=== PATIENT | male | born 1945 | race American Indian/Alaskan Native ===

== ENCOUNTER 2019-01-09 20:30 | Inpatient (IN) | payer MEDICARE, OTHER ==
[2019-01-09] MEDS ORDERED: ULTRAM PO ONE (21:15)
[2019-01-09] MEDS ORDERED: ULTRAM ONE (21:29)
[2019-01-09] MEDS ORDERED: K-DUR PO ONE ×2 (22:50→23:32)
[2019-01-09] MEDS ORDERED: ROCEPHIN/NS 1 GM/50 ML 1 GM/50 ML BAG IV ONE ×2 (22:50→23:31)
--- NOTE | 2019-01-10 02:06 | Emergency Department Report ---
ED General Adult HPI - General Time Seen by Provider: 01/10/19 01:58 Source: patient, EMS - History of Present Illness Initial comments: Marcy Buckleyell...8:50 pm (DOWNTIME) Room 22 72-year-old male presents to the ED with generalized weakness. Patient states he has chronic back pain that radiates into both legs with chronic weakness to both legs. Also reports chronic Left groin pain since the 1980s. Earlier today around 2 PM, patient states he attempted to get out of his chair to walk downstairs, but his legs gave out from underneath him. The patient states he attempted to get up but could not. Patient reports he normally walks with cane due to weakness in his legs. Patient states he crawled around on thr floor for hours, but was unable to get up from the floor due to his groin pain and baseline weakness. The patient eventually called EMS this evening to ask for help to get up from the floor. The patient denies any increased weakness in his legs, denies any numbness in the legs. Only reports left hip and groin pain. [facility] This afternoon Location: left, right, lower extremity Quality: aching Consistency: constant Improves with: immobilization Worsens with: movement Associated Symptoms: weakness (generalized). denies: chest pain, cough, fever/chills, headaches, nausea/vomiting, shortness of breath Treatments Prior to Arrival: none - Related Data Allergies Allergy/AdvReac Type Severity Reaction Status Date / Time No Known Allergies Allergy Verified 01/10/19 02:20 ED Review of Systems ROS: Stated complaint: Other details as noted in HPI Comment: All other systems reviewed and negative Constitutional: denies: chills, fever Respiratory: denies: shortness of breath Cardiovascular: denies: chest pain Gastrointestinal: denies: abdominal pain, nausea, vomiting, diarrhea Musculoskeletal: back pain, arthralgia Neurological: denies: headache, numbness, paresthesias ED Physical Exam - General General appearance: alert, in no apparent distress - Head Head exam: Present: atraumatic, normocephalic - Eye Eye exam: Present: normal appearance - ENT ENT exam: Present: mucous membranes moist - Neck Neck exam: Present: normal inspection - Respiratory Respiratory exam: Present: normal lung sounds bilaterally. Absent: respiratory distress - Cardiovascular Cardiovascular Exam: Present: regular rate, normal rhythm - GI/Abdominal GI/Abdominal exam: Present: soft. Absent: distended, tenderness - Extremities Exam Extremities exam: Present: pedal edema - Neurological Exam Neurological exam: Present: alert, oriented X3, CN II-XII intact, motor sensory deficit (4/5 strength LLE, 3/5 strength RLE (this is baseline per patient); BUE strength 5/5) - Psychiatric Psychiatric exam: Present: normal affect, normal mood - Skin Skin exam: Present: warm, dry, intact, normal color ED Medical Decision Making - Radiology Data Radiology results: report reviewed, image reviewed - Medical Decision Making 73-year-old male with chronic lower extremity weakness and chronic left hip pain. Patient states it gave out on him earlier today and he was unable to get himself up for several hours. Even after EMS arrived and lifted him up from sitting position, patient states he was unable to walk. CK does not demonstrate rhabdomyolysis. Serum labs unremarkable except for mild hypokalemia which was replaced. UA shows evidence of UTI. Will admit to hospitalist for weakness, hypokalemia, UTI. DOWNTIME procedures during ED stay-- no access to previous records as computer system is unavailable - Differential Diagnosis UTI, rhabdomyolysis, renal failure, fracture Critical care attestation.: If time is entered above; I have spent that time in minutes in the direct care of this critically ill patient, excluding procedure time. ED Disposition Clinical Impression: Hypokalemia, UTI (urinary tract infection), Generalized weakness Disposition: OP ADMIT IP TO THIS HOSP Is pt being admited?: Yes Condition: Stable
--- NOTE | 2019-01-10 02:32 | XRay Report ---
PROCEDURE: XR HIP 2-3V LT TECHNIQUE: Left hip radiographs, 3 views. 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 Soft tissues: Normal Bone mineralization: Normal Foreign bodies: None IMPRESSION: There are no fractures or malalignments. There is degenerative arthrosis of the left hip joint. This document is electronically signed by Ramin Leal MD., January 10 2019 02:30:54 AM ET
[2019-01-10] MEDS ORDERED: TYLENOL PO PRN (02:42)
[2019-01-10] MEDS ORDERED: ZOFRAN IV PRN (02:42)
[2019-01-10] MEDS ORDERED: SODIUM CHLORIDE FLUSH SYRINGE 10 ML IV PRN (02:42)
[2019-01-10] MEDS ORDERED: NACL 0.9% 1000 ML 1,000 ML ONE (05:33)
[2019-01-10] MEDS ORDERED: NORCO 5/325 ONE (05:33)
[2019-01-10] MEDS: PERCOCET 5/325 PO PRN ×2 (05:39→13:47)
[2019-01-10] MEDS: NACL 0.9% 1000 ML 1,000 ML IV SCH (05:39)
--- NOTE | 2019-01-10 07:04 | Event Note ---
Date: 01/10/19 See history and physical in the reports Sudden onset of weakness in both lower extremities Paraparesis??? Rule out transverse myelitis Neurology consult Physical therapy evaluation
--- NOTE | 2019-01-10 09:56 | History and Physical Report ---
CHIEF COMPLAINT: Weakness in both the lower extremities. HISTORY OF PRESENT ILLNESS: A 72-year-old male with history of seizure disorder and some weakness in both lower extremities, usually walking with a walker, comes in for increasing weakness in both the lower extremities and states that he is not able to walk. The patient states that around 2 p.m. attempted to get out of his chair to walk downstairs, but his legs gave out from underneath him. The patient normally walks with a cane due to weakness in his legs. The patient states he called around on the floor for hours, but was unable to get up from the floor due to his groin pain and weakness. The patient called the EMS and came here for being evaluated for weakness in both lower extremities. No weakness in both upper extremities. No numbness. PAST MEDICAL HISTORY: Significant for seizure disorder. PAST SURGICAL HISTORY: None. FAMILY HISTORY: Hypertension. SOCIAL HISTORY: Does not smoke. No alcohol, no recreational drugs. REVIEW OF SYSTEMS: Significant for weakness in both lower extremities. No fever, no chills. No shortness of breath. No memory loss. A 14-point review of systems done. Otherwise, negative. PHYSICAL EXAMINATION: GENERAL: Elderly male, cooperative during examination. VITAL SIGNS: Blood pressure 119/55, pulse is 88, respirations are 12, sats are 97%. HEENT: Unremarkable. Pupils equal and reactive. NECK: Supple, no lymphadenopathy, no thyromegaly. LUNGS: Clear to auscultation and percussion. Good air entry. CARDIOVASCULAR: S1, S2 heard. No gallop, no murmur, no rub. Apical impulse in left fifth intercostal space and mid clavicular line. ABDOMEN: Soft and benign. No hepatosplenomegaly. No guarding, no rigidity. EXTREMITIES: The patient has 2+/5 power in both lower extremities. Unable to lift the legs to some extent, maybe 30 degrees. Otherwise, severe weakness in both lower extremities. ASSESSMENT AND PLAN: 1. Paraparesis and4--- Rule out cord compression in the lumbosacral region. We will get MRI of the lumbosacral spine. Neurology consult requested. Physical therapy ordered. 2. Seizure disorder. Continue carbamazepine and primidone. 3. Hypokalemia, supplemented. 5. Deep venous thrombosis prophylaxis, Lovenox 40 mg subQ daily. In summary, the patient has weakness in both lower extremities, which is being evaluated. We will check MRI of the LS spine and check Neurology consult. JOB# [id number] INES/EBENEZER CYR
[2019-01-10] MEDS ORDERED: LOVENOX SUB-Q SCH (10:00)
[2019-01-10 10:22] LABS: Basophils # (Auto) 0.1 K/mm3 (0.0-0.1); Basophils % (Auto) 0.8 % (0.0-1.8); Eosinophils # (Auto) 0.2 K/mm3 (0.0-0.4); Eosinophils % (Auto) 2.4 % (0.0-4.3); Hematocrit 31.9 % (35.5-45.6); Hemoglobin 10.9 gm/dl (11.8-15.2); Lymphocytes # (Auto) 0.9 K/mm3 (1.2-5.4); Lymphocytes % (Auto) 13.9 % (13.4-35.0); Mean Corpuscular HGB Conc 34 % (32-34); Mean Corpuscular Volume 93 fl (84-94); Monocytes # (Auto) 0.8 K/mm3 (0.0-0.8); Monocytes % (Auto) 11.5 % (0.0-7.3); Platelet Count 235 K/mm3 (140-440); Red Blood Count 3.43 M/mm3 (3.65-5.03); Red Cell Distribution Width 12.7 % (13.2-15.2)
[2019-01-10 10:54] LABS: Bilirubin,Urine NEG (Negative); Blood,Urine MOD (Negative); Color,Urine Yellow (Yellow); Mucus,Urine FEW /HPF
[2019-01-10 10:54] LABS: Alanine Aminotransferase 11 units/L (7-56); Albumin 3.2 g/dL (3.9-5); BUN/Creatinine Ratio 10; Blood Urea Nitrogen 9 mg/dL (9-20); Calcium 8.4 mg/dL (8.4-10.2); Hemolysis Index 5
[2019-01-10] MEDS: DILAUDID IV PRN (12:03)
[2019-01-10] MEDS: PEPCID PO SCH ×2 (13:46→21:48)
[2019-01-10] MEDS: SODIUM CHLORIDE FLUSH SYRINGE 10 ML IV SCH ×2 (13:47→21:48)
[2019-01-10] MEDS: MYSOLINE PO SCH ×3 (13:48→20:50)
--- NOTE | 2019-01-10 15:39 | Event Note ---
Date: 01/10/19 Patient seen and examined, resting comfortable, no respiratory distress at this time. continue current work up
[2019-01-10 15:52] LABS: BUN/Creatinine Ratio 10; Blood Urea Nitrogen 9 mg/dL (9-20); Calcium 8.7 mg/dL (8.4-10.2); Hemolysis Index 8
--- NOTE | 2019-01-10 16:31 | Magnetic Resonance Report ---
MRI LUMBAR SPINE WITHOUT AND WITH CONTRAST: 01/10/19 CLINICAL: Paraparesis. TECHNIQUE: Sagittal and axial T1 and T2, sagittal STIR and sagittal and axial postcontrast T1 fat sat sequences a 1.5 Radha magnet. 20.0 cc of Multihance was injected intravenously for the contrast portion of the exam and consent was obtained prior to the administration of the contrast. FINDINGS: Motion degrades the quality of the examination. Normal vertebral body alignment through S1. A chronic L1 mid wedge compression fracture demonstrates no edema on STIR. The rest bodies are normal in height. Complete loss of the L5-S1 disc space and very large anterior osteophytes at L5-S1. The rest of the disc spaces are intact. The overall marrow signal is normal. However, Modic endplate changes at multiple levels and most pronounced at L5-S1. The conus medullaris is normal and terminates at L1 to. No mass. L1-2: Mild circumferential bulge of the disc, large anterior bulge of the disc and large anterior osteophytes. Mild bilateral neural foraminal narrowing. L2-3: Mild circumferential olds of the disc, large anterior bulge of the disc and large anterior osteophytes. Bilateral facet hypertrophy and ligamentum flavum hypertrophy. Moderate bilateral neural foraminal narrowing, slightly greater on the right than the left. L3-4: Large circumferential disc bulge and a small focal central disc protrusion with peripheral enhancement at the margins of the disc protrusion. Bilateral facet hypertrophy and ligamentum flavum hypertrophy. Pronounced right neural foraminal stenosis and pronounced left neural foraminal stenosis. L4-5: Circumferential disc bulge, bilateral facet hypertrophy and pronounced ligamentum flavum hypertrophy producing mild central spinal canal stenosis and pronounced bilateral neural foraminal stenosis. L5-S1: Degeneration of the disc with loss of the disc space. Bilateral facet hypertrophy and moderate bilateral neural foraminal stenosis. IMPRESSION: 1. Multilevel degenerative disc disease and facet joint disease, most severe at L3-4 and L4-5. 2. Pronounced bilateral neural foraminal narrowing at L3-4 and L4-5 produce by accommodation of disc bulges and facet hypertrophy. 3. Mild spinal canal stenosis at L4-5. 4. An acute L3-4 focal central disc protrusion. 5. No spinal canal with the lesion and no lesion of the conus medullaris.
[2019-01-11] MEDS: NACL 0.9% 1000 ML 1,000 ML IV SCH (02:30)
[2019-01-11] MEDS: DILAUDID IV PRN (02:35)
[2019-01-11 08:47] LABS: Basophils % (Auto) 0.4 % (0.0-1.8); Eosinophils # (Auto) 0.3 K/mm3 (0.0-0.4); Eosinophils % (Auto) 4.6 % (0.0-4.3); Hematocrit 33.6 % (35.5-45.6); Hemoglobin 11.4 gm/dl (11.8-15.2); Lymphocytes % (Auto) 18.9 % (13.4-35.0); Mean Corpuscular HGB Conc 34 % (32-34); Mean Corpuscular Volume 93 fl (84-94); Monocytes # (Auto) 0.6 K/mm3 (0.0-0.8); Monocytes % (Auto) 11.3 % (0.0-7.3); Platelet Count 227 K/mm3 (140-440); Red Blood Count 3.63 M/mm3 (3.65-5.03); Red Cell Distribution Width 12.9 % (13.2-15.2)
[2019-01-11 09:14] LABS: Alanine Aminotransferase 15 units/L (7-56); Albumin 3.1 g/dL (3.9-5); BUN/Creatinine Ratio 10; Blood Urea Nitrogen 9 mg/dL (9-20); Calcium 8.3 mg/dL (8.4-10.2); Hemolysis Index 1
--- NOTE | 2019-01-11 09:16 | Progress Note ---
Subjective Date of service: 01/11/19 Interval history: went over the MRI and hip Xray the Xray is normal and the MRI shows multi level disc budge borderline spinal stenosis will further assess Objective - Vital Sign Vital Signs - 12hr 01/10/19 01/10/19 01/11/19 22:00 22:57 06:17 Temperature 98.2 F 98.6 F Pulse Rate 74 84 Respiratory 18 18 16 Rate Blood Pressure 121/62 Blood Pressure 93/46 [Left] O2 Sat by Pulse 74 L 96 98 Oximetry 01/11/19 08:39 Temperature Pulse Rate Respiratory Rate Blood Pressure Blood Pressure [Left] O2 Sat by Pulse 84 Oximetry - Laboratory Findings CBC and BMP: 01/11/19 07:35 01/11/19 07:35 Abnormal Lab Findings: Abnormal Labs 01/09/19 01/10/19 01/10/19 21:50 10:07 10:07 RBC Hgb Hct RDW [place] % (Auto) Eos % (Auto) Lymph # Seg Neutrophils % Potassium 3.0 L 3.1 L Glucose 109 H Calcium Total Creatine Kinase 342 H 918 H Albumin 3.2 L Urine WBC (Auto) 01/10/19 01/10/19 01/11/19 10:07 10:08 07:35 RBC 3.43 L 3.63 L Hgb 10.9 L 11.4 L Hct 31.9 L 33.6 L RDW 12.7 L 12.9 L [place] % (Auto) 11.5 H 11.3 H Eos % (Auto) 4.6 H Lymph # 0.9 L 1.0 L Seg Neutrophils % 71.4 H Potassium Glucose Calcium Total Creatine Kinase Albumin Urine WBC (Auto) 91.0 H 01/11/19 07:35 RBC Hgb Hct RDW [place] % (Auto) Eos % (Auto) Lymph # Seg Neutrophils % Potassium 3.1 L Glucose Calcium 8.3 L Total Creatine Kinase Albumin 3.1 L Urine WBC (Auto)
[2019-01-11] MEDS: LOVENOX SUB-Q SCH (10:17)
[2019-01-11] MEDS: PEPCID PO SCH ×2 (10:17→21:59)
[2019-01-11] MEDS: MYSOLINE PO SCH ×3 (10:18→21:59)
[2019-01-11] MEDS: SODIUM CHLORIDE FLUSH SYRINGE 10 ML IV SCH ×2 (10:20→22:14)
--- NOTE | 2019-01-11 16:28 | Progress Note ---
Subjective Date of service: 01/11/19 Interval history: suspect the neuropathy in lergs is related to lumbar radiculitis plan discharge as no need for surgery plan follow up in offoce I CAN SEE OUTPATIENT HE IS NOT SURGICAL CANDIDATE EXPLAINED THE DISORDER TO PATIENT Objective - Vital Sign Vital Signs - 12hr 01/11/19 01/11/19 01/11/19 05:37 06:17 08:39 Temperature 98.6 F Pulse Rate 76 84 Respiratory 16 Rate Blood Pressure 93/38 Blood Pressure 93/46 [Left] O2 Sat by Pulse 87 98 84 Oximetry 01/11/19 11:30 Temperature 98.0 F Pulse Rate 103 H Respiratory 20 Rate Blood Pressure 100/61 Blood Pressure [Left] O2 Sat by Pulse 98 Oximetry - Laboratory Findings CBC and BMP: 01/11/19 07:35 01/11/19 07:35 Abnormal Lab Findings: Abnormal Labs 01/09/19 01/10/19 01/10/19 21:50 10:07 10:07 RBC Hgb Hct RDW [place] % (Auto) Eos % (Auto) Lymph # Seg Neutrophils % Potassium 3.0 L 3.1 L Glucose 109 H Calcium Total Creatine Kinase 342 H 918 H Albumin 3.2 L Urine WBC (Auto) 01/10/19 01/10/19 01/11/19 10:07 10:08 07:35 RBC 3.43 L 3.63 L Hgb 10.9 L 11.4 L Hct 31.9 L 33.6 L RDW 12.7 L 12.9 L [place] % (Auto) 11.5 H 11.3 H Eos % (Auto) 4.6 H Lymph # 0.9 L 1.0 L Seg Neutrophils % 71.4 H Potassium Glucose Calcium Total Creatine Kinase Albumin Urine WBC (Auto) 91.0 H 01/11/19 07:35 RBC Hgb Hct RDW [place] % (Auto) Eos % (Auto) Lymph # Seg Neutrophils % Potassium 3.1 L Glucose Calcium 8.3 L Total Creatine Kinase Albumin 3.1 L Urine WBC (Auto)
[2019-01-11] MEDS: PERCOCET 5/325 PO PRN (22:15)
--- NOTE | 2019-01-11 23:11 | Progress Note ---
Assessment and Plan Assessment and plan: Patient is a 72-year-old male presents to the ED with generalized weakness. Patient states he has chronic back pain that radiates into both legs with chronic weakness to both legs. Also reports chronic Left groin pain since the . Earlier today around 2 PM, patient states he attempted to get out of his chair to walk downstairs, but his legs gave out from underneath him. The patient states he attempted to get up but could not. Patient reports he normally walks with cane due to weakness in his legs. Patient states he crawled around on thr floor for hours, but was unable to get up from the floor due to his groin pain and baseline weakness. The patient eventually called EMS this evening to ask for help to get up from the floor. The patient denies any increased weakness in his legs, denies any numbness in the legs. Acute Cystitis Lumbar Radiculitis with-multi level disc budge borderline spinal stenosis Hypokalemia Plan Supportive care PT/OT Replace electrolytes Continue abx and await culture DVT/GI prophy History Interval history: Patient seen and examined, sitting at the edge of the bed, no new complaints, reports parasthesia in the left thigh and leg Hospitalist Physical - Constitutional Vitals: Temp Pulse Resp BP Pulse Ox 98.0 F 74 24 107/62 91 01/11/19 19:35 01/11/19 19:35 01/11/19 19:35 01/11/19 19:35 01/11/19 19:35 General appearance: Present: no acute distress, well-nourished - EENT Eyes: Present: PERRL, EOM intact ENT: hearing intact - Neck Neck: Present: supple, normal ROM - Respiratory Respiratory effort: normal Respiratory: bilateral: CTA - Cardiovascular Rhythm: regular Heart Sounds: Present: S1 & S2. Absent: systolic murmur - Extremities Extremities: no ischemia, pulses intact, pulses symmetrical, No edema, normal temperature, normal color, Full ROM Peripheral Pulses: within normal limits - Abdominal General gastrointestinal: soft, non-tender, non-distended, normal bowel sounds - Integumentary Integumentary: Present: clear, warm, dry - Psychiatric Psychiatric: appropriate mood/affect - Neurologic Neurologic: CNII-XII intact, moves all extremities - Allied Health Allied health notes reviewed: nursing Results - Labs CBC & Chem 7: 01/11/19 07:35 01/11/19 07:35 Labs: Laboratory Last Values WBC 5.4 K/mm3 (4.5-11.0) 01/11/19 07:35 RBC 3.63 M/mm3 (3.65-5.03) L 01/11/19 07:35 Hgb 11.4 gm/dl (11.8-15.2) L 01/11/19 07:35 Hct 33.6 % (35.5-45.6) L 01/11/19 07:35 MCV 93 fl (84-94) 01/11/19 07:35 MCH 32 pg (28-32) 01/11/19 07:35 MCHC 34 % (32-34) 01/11/19 07:35 RDW 12.9 % (13.2-15.2) L 01/11/19 07:35 Plt Count 227 K/mm3 (140-440) 01/11/19 07:35 Lymph % (Auto) 18.9 % (13.4-35.0) 01/11/19 07:35 [place] % (Auto) 11.3 % (0.0-7.3) H 01/11/19 07:35 Eos % (Auto) 4.6 % (0.0-4.3) H 01/11/19 07:35 Baso % (Auto) 0.4 % (0.0-1.8) 01/11/19 07:35 Lymph # 1.0 K/mm3 (1.2-5.4) L 01/11/19 07:35 Iron # 0.6 K/mm3 (0.0-0.8) 01/11/19 07:35 Eos # 0.3 K/mm3 (0.0-0.4) 01/11/19 07:35 Baso # 0.0 K/mm3 (0.0-0.1) 01/11/19 07:35 Seg Neutrophils % 64.8 % (40.0-70.0) 01/11/19 07:35 Seg Neutrophils # 3.5 K/mm3 (1.8-7.7) 01/11/19 07:35 Sodium 144 mmol/L (137-145) 01/11/19 07:35 Potassium 3.1 mmol/L (3.6-5.0) L 01/11/19 07:35 Chloride 105.1 mmol/L (98-107) 01/11/19 07:35 Carbon Dioxide 25 mmol/L (22-30) 01/11/19 07:35 17 mmol/L 01/11/19 07:35 BUN 9 mg/dL (9-20) 01/11/19 07:35 0.9 mg/dL (0.8-1.5) 01/11/19 07:35 Estimated GFR > 60 ml/min 01/11/19 07:35 10 % 01/11/19 07:35 Glucose 99 mg/dL (75-100) 01/11/19 07:35 5.3 % (4-6) 01/10/19 10:07 Calcium 8.3 mg/dL (8.4-10.2) L 01/11/19 07:35 0.30 mg/dL (0.1-1.2) 01/11/19 07:35 AST 30 units/L (5-40) 01/11/19 07:35 ALT 15 units/L (7-56) 01/11/19 07:35 62 units/L (35-129) 01/11/19 07:35 918 units/L (55-170) H 01/10/19 10:07 6.7 g/dL (6.3-8.2) 01/11/19 07:35 3.1 g/dL (3.9-5) L 01/11/19 07:35 0.9 % 01/11/19 07:35 Yellow (Yellow) 01/10/19 10:08 Slightly-cloudy (Clear) 01/10/19 10:08 5.0 (5.0-7.0) 01/10/19 10:08 Ur Specific [place] 1.023 (1.003-1.030) 01/10/19 10:08 30 mg/dl mg/dL (Negative) 01/10/19 10:08 Neg mg/dL (Negative) 01/10/19 10:08 20 mg/dL (Negative) 01/10/19 10:08 Mod (Negative) 01/10/19 10:08 Neg (Negative) 01/10/19 10:08 Neg (Negative) 01/10/19 10:08 2.0 mg/dL (<2.0) 01/10/19 10:08 Ur Leukocyte Esterase Mod (Negative) 01/10/19 10:08 91.0 /HPF (0.0-6.0) H 01/10/19 10:08 103.0 /HPF (0.0-6.0) 01/10/19 10:08 U Epithel Cells (Auto) 1.0 /HPF (0-13.0) 01/10/19 10:08 Few /HPF 01/10/19 10:08 Active Medications - Current Medications Current Medications: Generic Name Dose Route Start Last Admin Trade Name Freq PRN Reason Stop Dose Admin Acetaminophen 650 mg 01/10/19 02:42 Tylenol PO Q4H PRN Pain MILD(1-3)/Fever >100.5/TIERNEY Carbamazepine 200 mg 01/10/19 08:00 01/11/19 22:00 Tegretol PO 200 mg TID MARSHALL Administration Enoxaparin Sodium 40 mg 01/11/19 10:00 01/11/19 10:17 Lovenox SUB-Q 40 mg QDAY@1000 MARSHALL Administration Famotidine 20 mg 01/10/19 10:00 01/11/19 21:59 Pepcid PO 20 mg BID MARSHALL Administration Hydromorphone HCl 0.5 mg 01/10/19 02:42 01/11/19 02:35 Dilaudid IV 0.5 mg Q3H PRN Administration Pain , Severe (7-10) Sodium Chloride 1,000 mls @ 75 mls/hr 01/10/19 03:00 01/11/19 02:30 Nacl 0.9% 1000 Ml IV 75 mls/hr DIRECT MARSHALL Administration Ondansetron HCl 4 mg 01/10/19 02:42 Zofran IV Q8H PRN Nausea And Vomiting Oxycodone/Acetaminophen 1 tab 01/10/19 02:42 01/11/19 22:15 Percocet 5/325 PO 1 tab Q6H PRN Administration Pain, Moderate (4-6) Primidone 250 mg 01/10/19 08:00 01/11/19 21:59 Mysoline PO 250 mg TID MARSHALL Administration Sodium Chloride 10 ml 01/10/19 10:00 01/11/19 22:14 Sodium Chloride Flush Syringe 10 Ml IV 10 ml BID MARSHALL Administration Sodium Chloride 10 ml 01/10/19 02:42 01/11/19 02:37 Sodium Chloride Flush Syringe 10 Ml IV 10 ml PRN PRN Administration LINE FLUSH
[2019-01-12] MEDS: NACL 0.9% 1000 ML 1,000 ML IV SCH (04:00)
--- NOTE | 2019-01-12 08:15 | Discharge Summary ---
Providers - Providers Date of Admission: 01/10/19 02:07 Attending physician: CHARLIE HERBERT MD 01/10/19 02:46 Physical Therapy Evaluation and Treat [CONS] Routine Comment: Reason For Exam: paraparesis Mode of Transport?: Wheelchair 01/10/19 17:02 Consult to Physician [CONS] Routine Comment: Consulting Provider: TIKI DIAZ Physician Instructions: Reason For Exam: bilateral lower ext weakness Primary care physician: BUSINESS PROCESS ENGINEER Hospitalization Reason for admission: fall Condition: Stable Hospital course: Patient is a 72-year-old male presents to the ED with generalized weakness. Patient states he has chronic back pain that radiates into both legs with chronic weakness to both legs. Also reports chronic Left groin pain since the 1980s. Earlier today around 2 PM, patient states he attempted to get out of his chair to walk downstairs, but his legs gave out from underneath him. The patient states he attempted to get up but could not. Patient reports he normally walks with cane due to weakness in his legs. Patient states he crawled around on thr floor for hours, but was unable to get up from the floor due to his groin pain and baseline weakness. The patient eventually called EMS this evening to ask for help to get up from the floor. The patient denies any increased weakness in his legs, denies any numbness in the legs. During hospitalization patient had a was found in the FLOOR In the bath room, CT head was done did not reveal any acute pathology Neurology saw the patient and recommended physical therapy with outpatient follow up with the neurologist SNF was recommended by PT Discharge Diagnosis Acute Cystitis Lumbar Radiculitis with-multi level disc budge borderline spinal stenosis No evidence of Sepsis. Hypokalemia Recurrent falls seizure [id number] Time spent for discharge: 35 mins Core Measure Documentation - Palliative Care Palliative Care/ Comfort Measures: Not Applicable - Core Measures Any of the following diagnoses?: none Exam - Physical Exam Narrative exam: General appearance: Present: no acute distress, well-nourished - EENT Eyes: Present: PERRL, EOM intact. No head Trauma ENT: hearing intact - Neck Neck: Present: supple, normal ROM - Respiratory Respiratory effort: normal Respiratory: bilateral: CTA - Cardiovascular Rhythm: regular Heart Sounds: Present: S1 & S2. Absent: systolic murmur - Extremities Extremities: no ischemia, pulses intact, pulses symmetrical, No edema, normal temperature, normal color, Full ROM Peripheral Pulses: within normal limits - Abdominal General gastrointestinal: soft, non-tender, non-distended, normal bowel sounds - Integumentary Integumentary: Present: clear, warm, dry - Psychiatric Psychiatric: appropriate mood/affect - Neurologic Neurologic: CNII-XII intact, moves all extremities - Allied Health Allied health notes reviewed: nursing - Constitutional Vitals: Temp Pulse Resp BP Pulse Ox 98.4 F 89 16 105/62 94 01/12/19 05:01/12/19 05:01/12/19 05:11 01/12/19 05:01/12/19 05:11 General appearance: Present: no acute distress, well-nourished - EENT Eyes: Present: PERRL, EOM intact ENT: hearing intact - Neck Neck: Present: supple, normal ROM - Respiratory Respiratory effort: normal Respiratory: bilateral: CTA - Cardiovascular Rhythm: regular Heart Sounds: Present: S1 & S2. Absent: systolic murmur - Extremities Extremities: no ischemia, pulses intact, No edema, normal temperature, Full ROM Peripheral Pulses: within normal limits - Abdominal General gastrointestinal: Present: soft, non-tender, non-distended, normal bowel sounds - Integumentary Integumentary: Present: clear, warm, dry - Musculoskeletal Musculoskeletal: strength equal bilaterally - Psychiatric Psychiatric: appropriate mood/affect, intact judgment & insight - Neurologic Neurologic: CNII-XII intact, moves all extremities - Allied Health Allied health notes reviewed: nursing Plan Activity: advance as tolerated Diet: low fat Special Instructions: record daily weights, physical therapy, occupational therapy Follow up with: PRIMARY CARE, [Primary Care Provider] - 3-5 Days Prescriptions: oxyCODONE /ACETAMINOPHEN [Percocet 5/325 mg] 1 tab PO Q6H PRN #14 tablet PRN Reason: Pain, Moderate (4-6)
[2019-01-12] MEDS: MYSOLINE PO SCH ×3 (08:25→20:41)
[2019-01-12] MEDS: PERCOCET 5/325 PO PRN ×2 (08:25→15:00)
[2019-01-12] MEDS ORDERED: K-DUR PO ONE (09:30)
[2019-01-12] MEDS: LOVENOX SUB-Q SCH (10:35)
[2019-01-12] MEDS: SODIUM CHLORIDE FLUSH SYRINGE 10 ML IV SCH ×2 (10:36→21:06)
[2019-01-12] MEDS: PEPCID PO SCH ×2 (10:36→21:05)
--- NOTE | 2019-01-12 12:11 | Progress Note ---
Assessment and Plan Assessment and plan: Patient is a 72-year-old male presents to the ED with generalized weakness. Patient states he has chronic back pain that radiates into both legs with chronic weakness to both legs. Also reports chronic Left groin pain since the 1980s. Earlier today around 2 PM, patient states he attempted to get out of his chair to walk downstairs, but his legs gave out from underneath him. The patient states he attempted to get up but could not. Patient reports he normally walks with cane due to weakness in his legs. Patient states he crawled around on thr floor for hours, but was unable to get up from the floor due to his groin pain and baseline weakness. The patient eventually called EMS this evening to ask for help to get up from the floor. The patient denies any increased weakness in his legs, denies any numbness in the legs. Acute Cystitis Lumbar Radiculitis with-multi level disc budge borderline spinal stenosis Hypokalemia No sepsis Plan Supportive care PT/OT Replace electrolytes Continue abx and await culture DVT/GI prophy Discharge to SNF History Interval history: Patient seen and examined, sitting at the edge of the bed, no new complaints, reports parasthesia in the left thigh and leg Hospitalist Physical - Physical exam Narrative exam: General appearance: Present: no acute distress, well-nourished - EENT Eyes: Present: PERRL, EOM intact. No head Trauma ENT: hearing intact - Neck Neck: Present: supple, normal ROM - Respiratory Respiratory effort: normal Respiratory: bilateral: CTA - Cardiovascular Rhythm: regular Heart Sounds: Present: S1 & S2. Absent: systolic murmur - Extremities Extremities: no ischemia, pulses intact, pulses symmetrical, No edema, normal temperature, normal color, Full ROM Peripheral Pulses: within normal limits - Abdominal General gastrointestinal: soft, non-tender, non-distended, normal bowel sounds - Integumentary Integumentary: Present: clear, warm, dry - Psychiatric Psychiatric: appropriate mood/affect - Neurologic Neurologic: CNII-XII intact, moves all extremities - Allied Health Allied health notes reviewed: nursing - Constitutional Vitals: Temp Pulse Resp BP Pulse Ox 98.4 F 89 16 105/62 94 01/12/19 05:11 01/12/19 05:11 01/12/19 05:11 01/12/19 05:11 01/12/19 05:11 General appearance: Present: no acute distress, well-nourished Results - Labs CBC & Chem 7: 01/11/19 07:35 01/11/19 07:35 Labs: Laboratory Last Values WBC 5.4 K/mm3 (4.5-11.0) 01/11/19 07:35 RBC 3.63 M/mm3 (3.65-5.03) L 01/11/19 07:35 Hgb 11.4 gm/dl (11.8-15.2) L 01/11/19 07:35 Hct 33.6 % (35.5-45.6) L 01/11/19 07:35 MCV 93 fl (84-94) 01/11/19 07:35 MCH 32 pg (28-32) 01/11/19 07:35 MCHC 34 % (32-34) 01/11/19 07:35 RDW 12.9 % (13.2-15.2) L 01/11/19 07:35 Plt Count 227 K/mm3 (140-440) 01/11/19 07:35 Lymph % (Auto) 18.9 % (13.4-35.0) 01/11/19 07:35 [place] % (Auto) 11.3 % (0.0-7.3) H 01/11/19 07:35 Eos % (Auto) 4.6 % (0.0-4.3) H 01/11/19 07:35 Baso % (Auto) 0.4 % (0.0-1.8) 01/11/19 07:35 Lymph # 1.0 K/mm3 (1.2-5.4) L 01/11/19 07:35 [place] # 0.6 K/mm3 (0.0-0.8) 01/11/19 07:35 Eos # 0.3 K/mm3 (0.0-0.4) 01/11/19 07:35 Baso # 0.0 K/mm3 (0.0-0.1) 01/11/19 07:35 Seg Neutrophils % 64.8 % (40.0-70.0) 01/11/19 07:35 Seg Neutrophils # 3.5 K/mm3 (1.8-7.7) 01/11/19 07:35 Sodium 144 mmol/L (137-145) 01/11/19 07:35 Potassium 3.1 mmol/L (3.6-5.0) L 01/11/19 07:35 Chloride 105.1 mmol/L (98-107) 01/11/19 07:35 Carbon Dioxide 25 mmol/L (22-30) 01/11/19 07:35 17 mmol/L 01/11/19 07:35 BUN 9 mg/dL (9-20) 01/11/19 07:35 0.9 mg/dL (0.8-1.5) 01/11/19 07:35 Estimated GFR > 60 ml/min 01/11/19 07:35 10 % 01/11/19 07:35 Glucose 99 mg/dL (75-100) 01/11/19 07:35 5.3 % (4-6) 01/10/19 10:07 Calcium 8.3 mg/dL (8.4-10.2) L 01/11/19 07:35 0.30 mg/dL (0.1-1.2) 01/11/19 07:35 AST 30 units/L (5-40) 01/11/19 07:35 ALT 15 units/L (7-56) 01/11/19 07:35 62 units/L (35-129) 01/11/19 07:35 918 units/L (55-170) H 01/10/19 10:07 6.7 g/dL (6.3-8.2) 01/11/19 07:35 3.1 g/dL (3.9-5) L 01/11/19 07:35 0.9 % 01/11/19 07:35 Yellow (Yellow) 01/10/19 10:08 Slightly-cloudy (Clear) 01/10/19 10:08 5.0 (5.0-7.0) 01/10/19 10:08 Ur Specific [place] 1.023 (1.003-1.030) 01/10/19 10:08 30 mg/dl mg/dL (Negative) 01/10/19 10:08 Neg mg/dL (Negative) 01/10/19 10:08 20 mg/dL (Negative) 01/10/19 10:08 Mod (Negative) 01/10/19 10:08 Neg (Negative) 01/10/19 10:08 Neg (Negative) 01/10/19 10:08 2.0 mg/dL (<2.0) 01/10/19 10:08 Ur Leukocyte Esterase Mod (Negative) 01/10/19 10:08 91.0 /HPF (0.0-6.0) H 01/10/19 10:08 103.0 /HPF (0.0-6.0) 01/10/19 10:08 U Epithel Cells (Auto) 1.0 /HPF (0-13.0) 01/10/19 10:08 Few /HPF 01/10/19 10:08 Active Medications - Current Medications Current Medications: Generic Name Dose Route Start Last Admin Trade Name Freq PRN Reason Stop Dose Admin Acetaminophen 650 mg 01/10/19 02:42 Tylenol PO Q4H PRN Pain MILD(1-3)/Fever >100.5/TIERNEY Carbamazepine 200 mg 01/10/19 08:00 01/12/19 08:24 Tegretol PO 200 mg TID MARSHALL Administration Enoxaparin Sodium 40 mg 01/11/19 10:00 01/12/19 10:35 Lovenox SUB-Q 40 mg QDAY@1000 MARSHALL Administration Famotidine 20 mg 01/10/19 10:00 01/12/19 10:36 Pepcid PO 20 mg BID MARSHALL Administration Hydromorphone HCl 0.5 mg 01/10/19 02:42 01/11/19 02:35 Dilaudid IV 0.5 mg Q3H PRN Administration Pain , Severe (7-10) Sodium Chloride 1,000 mls @ 75 mls/hr 01/10/19 03:00 01/12/19 04:00 Nacl 0.9% 1000 Ml IV 75 mls/hr DIRECT MARSHALL Administration Ondansetron HCl 4 mg 01/10/19 02:42 Zofran IV Q8H PRN Nausea And Vomiting Oxycodone/Acetaminophen 1 tab 01/10/19 02:42 01/12/19 08:25 Percocet 5/325 PO 1 tab Q6H PRN Administration Pain, Moderate (4-6) Primidone 250 mg 01/10/19 08:00 01/12/19 08:25 Mysoline PO 250 mg TID MARSHALL Administration Sodium Chloride 10 ml 01/10/19 10:00 06/14/19 10:36 Sodium Chloride Flush Syringe 10 Ml IV 10 ml BID MARSHALL Administration Sodium Chloride 10 ml 01/10/19 02:42 01/11/19 02:37 Sodium Chloride Flush Syringe 10 Ml IV 10 ml PRN PRN Administration LINE FLUSH
--- NOTE | 2019-01-12 14:31 | Cat Scan Report ---
CT HEAD WITHOUT CONTRAST INDICATION: Altered mental status. COMPARISON: None similar. 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 Normal remainder ventricles. Mild periventricular hypodensities. No definite acute infarct, hemorrhage, mass effect or midline shift. No abnormal extra axial fluid collections. Normal posterior fossa with preserved basilar cisterns. Normal imaged eye globes. Leftward nasal septal deviation and 3 mm leftward nasal septal spur noted. Clear imaged paranasal sinuses and mastoid air cells. Normal calvarium and scalp. CONCLUSION: No acute intracranial CT abnormality with old left frontal lobe infarct and few other findings noted, as described. Please correlate. Thank you for the opportunity to participate in this patient's care.
[2019-01-13] MEDS: PERCOCET 5/325 PO PRN (01:53)
[2019-01-13] MEDS: PEPCID PO SCH (09:30)
[2019-01-13] MEDS: LOVENOX SUB-Q SCH (09:30)
[2019-01-13] MEDS: MYSOLINE PO SCH ×2 (09:30→14:28)
[2019-01-13] MEDS: SODIUM CHLORIDE FLUSH SYRINGE 10 ML IV SCH (09:31)
[2019-01-13 12:10] VITALS: BP 122/66
--- NOTE | 2019-01-13 14:28 | Progress Note ---
Subjective Date of service: 01/13/19 Interval history: ok to discharge recommend follow up in my office see the orders Objective - Vital Sign Vital Signs - 12hr 01/13/19 01/13/19 04:55 11:21 Temperature 98.6 F 98.1 F Pulse Rate 78 80 Respiratory 18 20 Rate Blood Pressure 110/59 122/66 O2 Sat by Pulse 94 98 Oximetry - Laboratory Findings CBC and BMP: 01/11/19 07:35 01/11/19 07:35 Abnormal Lab Findings: Abnormal Labs 01/09/19 01/10/19 01/10/19 21:50 10:07 10:07 RBC Hgb Hct RDW [place] % (Auto) Eos % (Auto) Lymph # Seg Neutrophils % Potassium 3.0 L 3.1 L Glucose 109 H Calcium Total Creatine Kinase 342 H 918 H Albumin 3.2 L Urine WBC (Auto) 01/10/19 01/10/19 01/11/19 10:07 10:08 07:35 RBC 3.43 L 3.63 L Hgb 10.9 L 11.4 L Hct 31.9 L 33.6 L RDW 12.7 L 12.9 L [place] % (Auto) 11.5 H 11.3 H Eos % (Auto) 4.6 H Lymph # 0.9 L 1.0 L Seg Neutrophils % 71.4 H Potassium Glucose Calcium Total Creatine Kinase Albumin Urine WBC (Auto) 91.0 H 01/11/19 07:35 RBC Hgb Hct RDW [place] % (Auto) Eos % (Auto) Lymph # Seg Neutrophils % Potassium 3.1 L Glucose Calcium 8.3 L Total Creatine Kinase Albumin 3.1 L Urine WBC (Auto)
== END 2019-01-13 14:35 | DRG 552 ==
LOC: ED 20:30 → 2B-ACE 01-10 02:07 → 3A 01-10 09:28
PROVIDERS: ADMIT Internal Medicine; ATTEND Internal Medicine
DX: M54.16 Radiculopathy, lumbar region (principal); N30.01 Acute cystitis with hematuria; G82.20 Paraplegia, unspecified; E87.6 Hypokalemia; G40.909 Epilepsy, unspecified, not intractable, without status epilepticus; G89.29 Other chronic pain; M54.9 Dorsalgia, unspecified; Z91.81 History of falling
CPT/HCPCS: 36415; 70450; 72158; 80048; 80053; 81001; 82550; 83036; 85025; 87086; G0378; A9577; J0696; J1170; J1650; J7030

== ENCOUNTER 2020-08-14 09:57 | Inpatient (IN) | payer MEDICARE ==
[2020-08-14] MEDS ORDERED: SODIUM CHLORIDE 0.9% 1000 ML 2,000 ML ONE (10:23)
[2020-08-14] MEDS ORDERED: SODIUM CHLORIDE 0.9% 1000 ML 1,000 ML IV ONE ×5 (10:28→13:45)
--- NOTE | 2020-08-14 10:36 | Emergency Department Report ---
ED General Adult HPI - General Chief complaint: Altered Mental Status Stated complaint: AMS/SEPSIS Time Seen by Provider: 08/14/20 10:27 Source: EMS Mode of arrival: Stretcher Limitations: Altered Mental Status, Physical Limitation - History of Present Illness Initial comments: Patient is 75-year-old male brought to the emergency room from his custodial resident for evaluation of altered mental status and low blood pressure. Patient found to be tachycardic at 164 with a blood pressure of 76/36 and oxygen saturation of 100%. Patient mentation is normal as he is asking for water. Patient was seen 2019 for bilateral lower extremities after a fall and found that he has spondylosis and multiple bulge disc and since then patient admitted to long-term facility for inability to walk and take care of himself. Patient is not answering questions appropriately. Sepsis protocol initiated as EKG did not indicate rhythm that would be the cause for his hypotension. Patient received 2 L of normal saline and sepsis work-up was started. - Related Data Home Medications Medication Instructions Recorded Confirmed Last Taken Folic Acid [Folvite] 1 mg PO QDAY 01/10/19 08/14/20 Unknown Primidone [Mysoline] 250 mg PO TID 01/10/19 08/14/20 Unknown carBAMazepine [Carbamazepine] 200 mg PO TID 01/10/19 08/14/20 Unknown Aspirin [Aspirin BABY CHEW TAB] 81 mg PO QDAY 08/15/20 08/15/20 Unknown AtorvaSTATin [Lipitor] 40 mg PO QHS 08/15/20 08/15/20 Unknown Citalopram Hydrobromide 20 mg PO QDAY 08/15/20 08/15/20 Unknown [Citalopram HBr] Ergocalciferol [Vitamin D2] 1 cap PO QWEEK 08/15/20 08/15/20 Unknown Folic Acid [Folvite] 1 mg PO QDAY 08/15/20 08/15/20 Unknown Midodrine [Proamatine] 2.5 mg PO BID 08/15/20 08/15/20 Unknown Mirtazapine 7.5 mg PO QHS 08/15/20 08/15/20 Unknown guaiFENesin ER [Mucinex ER] 600 mg PO Q12H 08/15/20 08/15/20 Unknown oxyCODONE /ACETAMINOPHEN [Percocet 1 tab PO Q6HR PRN 08/15/20 08/15/20 Unknown 5/325] tiZANidine [Zanaflex 4mg TAB] 4 mg PO BID 08/15/20 08/15/20 Unknown Previous Rx's Medication Instructions Recorded Last Taken Type oxyCODONE /ACETAMINOPHEN [Percocet 1 tab PO Q6H PRN #14 tablet 01/12/19 Unknown Rx 5/325 mg] Allergies Allergy/AdvReac Type Severity Reaction Status Date / Time No Known Allergies Allergy Verified 01/10/19 02:20 ED Review of Systems ROS: Stated complaint: AMS/SEPSIS Other details as noted in HPI Comment: Unobtainable due to pts medical conditions ED Past Medical Hx - Social History Smoking Status: Never Smoker - Medications Home Medications: Home Medications Medication Instructions Recorded Confirmed Last Taken Type Folic Acid [Folvite] 1 mg PO QDAY 01/10/19 08/14/20 Unknown History Primidone [Mysoline] 250 mg PO TID 01/10/19 08/14/20 Unknown History carBAMazepine [Carbamazepine] 200 mg PO TID 01/10/19 08/14/20 Unknown History oxyCODONE /ACETAMINOPHEN [Percocet 1 tab PO Q6H PRN #14 tablet 01/12/19 08/14/20 Unknown Rx 5/325 mg] Aspirin [Aspirin BABY CHEW TAB] 81 mg PO QDAY 08/15/20 08/15/20 Unknown History AtorvaSTATin [Lipitor] 40 mg PO QHS 08/15/20 08/15/20 Unknown History Citalopram Hydrobromide 20 mg PO QDAY 08/15/20 08/15/20 Unknown History [Citalopram HBr] Ergocalciferol [Vitamin D2] 1 cap PO QWEEK 08/15/20 08/15/20 Unknown History Folic Acid [Folvite] 1 mg PO QDAY 08/15/20 08/15/20 Unknown History Midodrine [Proamatine] 2.5 mg PO BID 08/15/20 08/15/20 Unknown History Mirtazapine 7.5 mg PO QHS 08/15/20 08/15/20 Unknown History guaiFENesin ER [Mucinex ER] 600 mg PO Q12H 08/15/20 08/15/20 Unknown History oxyCODONE /ACETAMINOPHEN [Percocet 1 tab PO Q6HR PRN 08/15/20 08/15/20 Unknown History 5/325] tiZANidine [Zanaflex 4mg TAB] 4 mg PO BID 08/15/20 08/15/20 Unknown History ED Physical Exam - General Limitations: Altered Mental Status, Physical Limitation General appearance: alert, in no apparent distress - Head Head exam: Present: atraumatic, normocephalic, normal inspection - ENT ENT exam: Present: mucous membranes dry - Neck Neck exam: Present: normal inspection, full ROM. Absent: tenderness, meningismus - Respiratory Respiratory exam: Present: normal lung sounds bilaterally - Cardiovascular Cardiovascular Exam: Present: tachycardia - GI/Abdominal GI/Abdominal exam: Present: soft, normal bowel sounds. Absent: distended, tenderness, guarding, rebound, rigid, organomegaly, mass, bruit, pulsatile mass, hernia - Back Exam Back exam: Absent: CVA tenderness (R), CVA tenderness (L) - Neurological Exam Neurological exam: Present: alert, oriented X3, CN II-XII intact - Skin Skin exam: Present: other (Bilateral leg wound.) ED Course Vital Signs 08/14/20 08/14/20 08/14/20 10:15 10:30 10:45 Temperature 98.6 F Pulse Rate 172 H 165 H Respiratory 22 18 20 Rate Blood Pressure 79/43 Blood Pressure 71/47 [Left] O2 Sat by Pulse 92 92 99 Oximetry 08/14/20 08/14/20 08/14/20 11:31 11:40 11:51 Temperature Pulse Rate 129 H 135 H 151 H Respiratory 18 20 Rate Blood Pressure Blood Pressure 77/50 84/45 69/43 [Left] O2 Sat by Pulse 96 100 Oximetry 08/14/20 08/14/20 08/14/20 13:00 14:15 15:15 Temperature Pulse Rate 93 H 91 H 85 Respiratory 18 18 18 Rate Blood Pressure Blood Pressure 100/62 88/51 96/50 [Left] O2 Sat by Pulse 99 99 99 Oximetry 08/14/20 08/14/20 08/14/20 19:00 20:00 20:38 Temperature 97.8 F Pulse Rate 86 89 85 Respiratory 12 14 13 Rate Blood Pressure Blood Pressure 96/48 100/49 [Left] O2 Sat by Pulse 97 97 79 L Oximetry 08/14/20 08/14/20 08/14/20 21:00 21:30 22:00 Temperature Pulse Rate 80 85 81 Respiratory 13 14 15 Rate Blood Pressure 100/55 99/43 Blood Pressure [Left] O2 Sat by Pulse 98 Oximetry 08/14/20 08/14/20 08/14/20 22:30 23:00 23:16 Temperature Pulse Rate 72 72 73 Respiratory 12 14 16 Rate Blood Pressure 99/43 103/46 99/43 Blood Pressure [Left] O2 Sat by Pulse 98 99 99 Oximetry 08/14/20 08/14/20 08/15/20 23:30 23:32 00:00 Temperature Pulse Rate 73 74 74 Respiratory 13 17 14 Rate Blood Pressure 103/46 103/46 104/53 Blood Pressure [Left] O2 Sat by Pulse 99 99 100 Oximetry 08/15/20 08/15/20 08/15/20 00:30 01:00 01:30 Temperature Pulse Rate 127 H 125 H 129 H Respiratory 18 18 16 Rate Blood Pressure 104/53 104/53 89/56 Blood Pressure [Left] O2 Sat by Pulse 99 98 Oximetry 08/15/20 08/15/20 08/15/20 02:00 02:30 03:00 Temperature Pulse Rate 117 H 80 69 Respiratory 25 H 18 14 Rate Blood Pressure 83/51 120/65 117/61 Blood Pressure [Left] O2 Sat by Pulse 98 100 100 Oximetry 08/15/20 08/15/20 08/15/20 03:16 03:30 03:46 Temperature Pulse Rate 81 70 77 Respiratory 16 16 17 Rate Blood Pressure 124/69 120/55 124/62 Blood Pressure [Left] O2 Sat by Pulse 100 99 97 Oximetry 08/15/20 08/15/20 08/15/20 04:00 04:16 04:30 Temperature Pulse Rate 70 68 70 Respiratory 14 13 14 Rate Blood Pressure 129/65 128/60 123/61 Blood Pressure [Left] O2 Sat by Pulse 100 98 100 Oximetry 08/15/20 08/15/20 08/15/20 04:46 05:00 05:16 Temperature Pulse Rate 69 70 75 Respiratory 14 10 L 15 Rate Blood Pressure 121/63 124/62 127/70 Blood Pressure [Left] O2 Sat by Pulse 99 96 100 Oximetry 08/15/20 08/15/20 08/15/20 05:30 05:46 06:00 Temperature Pulse Rate 66 69 72 Respiratory 15 11 L 17 Rate Blood Pressure 131/71 129/69 120/65 Blood Pressure [Left] O2 Sat by Pulse 99 96 66 L Oximetry 08/15/20 08/15/20 08/15/20 06:15 06:30 06:46 Temperature Pulse Rate 70 71 66 Respiratory 15 17 15 Rate Blood Pressure 128/66 129/67 128/70 Blood Pressure [Left] O2 Sat by Pulse 100 100 99 Oximetry 08/15/20 08/15/20 08/15/20 07:00 07:16 07:30 Temperature Pulse Rate 68 67 72 Respiratory 18 15 14 Rate Blood Pressure 121/67 125/56 124/70 Blood Pressure [Left] O2 Sat by Pulse 100 98 96 Oximetry 08/15/20 08/15/20 08/15/20 07:45 08:00 08:15 Temperature Pulse Rate 66 67 66 Respiratory 14 16 19 Rate Blood Pressure 122/67 132/67 128/66 Blood Pressure [Left] O2 Sat by Pulse 100 99 100 Oximetry 08/15/20 08/15/20 08/15/20 08:30 08:46 09:00 Temperature Pulse Rate 79 69 79 Respiratory 15 16 17 Rate Blood Pressure 114/61 116/64 127/67 Blood Pressure [Left] O2 Sat by Pulse 98 95 99 Oximetry 08/15/20 08/15/20 08/15/20 09:16 09:30 09:46 Temperature Pulse Rate 68 70 85 Respiratory 14 20 17 Rate Blood Pressure 127/57 121/65 127/71 Blood Pressure [Left] O2 Sat by Pulse 99 98 99 Oximetry 08/15/20 08/15/20 08/15/20 10:00 10:16 10:30 Temperature Pulse Rate 73 69 75 Respiratory 13 16 13 Rate Blood Pressure 108/58 114/56 114/61 Blood Pressure [Left] O2 Sat by Pulse 97 97 96 Oximetry 08/15/20 08/15/20 08/15/20 10:46 11:00 11:16 Temperature Pulse Rate 74 72 73 Respiratory 15 19 15 Rate Blood Pressure 104/57 104/58 104/56 Blood Pressure [Left] O2 Sat by Pulse 99 99 98 Oximetry 08/15/20 08/15/20 08/15/20 11:30 11:46 12:00 Temperature Pulse Rate 70 84 73 Respiratory 11 L 11 L 14 Rate Blood Pressure 105/59 109/54 101/58 Blood Pressure [Left] O2 Sat by Pulse 98 98 96 Oximetry 08/15/20 08/15/20 08/15/20 12:16 12:30 12:46 Temperature Pulse Rate 73 69 70 Respiratory 14 15 15 Rate Blood Pressure 101/52 102/56 104/58 Blood Pressure [Left] O2 Sat by Pulse 99 98 96 Oximetry 08/15/20 08/15/20 08/15/20 13:00 13:16 13:30 Temperature Pulse Rate 67 76 69 Respiratory 14 16 12 Rate Blood Pressure 101/53 103/55 106/46 Blood Pressure [Left] O2 Sat by Pulse 99 100 99 Oximetry 08/15/20 08/15/20 08/15/20 13:45 14:00 14:16 Temperature Pulse Rate 72 67 66 Respiratory 9 L 12 17 Rate Blood Pressure 115/55 97/57 109/56 Blood Pressure [Left] O2 Sat by Pulse 100 96 100 Oximetry 08/15/20 08/15/20 08/15/20 14:30 14:46 15:00 Temperature Pulse Rate 80 75 71 Respiratory 13 15 12 Rate Blood Pressure 95/59 108/53 112/55 Blood Pressure [Left] O2 Sat by Pulse 98 100 99 Oximetry 08/15/20 08/15/20 08/15/20 15:16 15:30 15:46 Temperature Pulse Rate 71 76 72 Respiratory 13 16 14 Rate Blood Pressure 112/55 112/55 112/55 Blood Pressure [Left] O2 Sat by Pulse 96 98 99 Oximetry 08/15/20 08/15/20 08/15/20 16:00 16:15 16:30 Temperature Pulse Rate 73 76 76 Respiratory 13 12 15 Rate Blood Pressure 112/55 99/52 96/57 Blood Pressure [Left] O2 Sat by Pulse 99 98 98 Oximetry 08/15/20 08/15/20 08/15/20 16:46 17:00 17:16 Temperature Pulse Rate 72 66 76 Respiratory 14 11 L 10 L Rate Blood Pressure 100/51 85/43 79/40 Blood Pressure [Left] O2 Sat by Pulse 99 100 98 Oximetry 08/15/20 08/15/20 08/15/20 17:30 17:45 18:00 Temperature Pulse Rate 67 71 68 Respiratory 12 11 L 10 L Rate Blood Pressure 95/47 96/40 100/44 Blood Pressure [Left] O2 Sat by Pulse 99 99 98 Oximetry 08/15/20 08/15/20 08/15/20 19:00 19:16 19:30 Temperature Pulse Rate 68 49 L 48 L Respiratory 17 20 13 Rate Blood Pressure 133/63 111/39 112/44 Blood Pressure [Left] O2 Sat by Pulse 97 100 100 Oximetry 08/15/20 08/15/20 08/15/20 19:45 20:00 20:15 Temperature Pulse Rate 59 L 53 L 71 Respiratory 11 L 13 16 Rate Blood Pressure 99/39 88/36 130/66 Blood Pressure [Left] O2 Sat by Pulse 100 100 100 Oximetry 08/15/20 08/15/20 08/15/20 20:30 20:45 21:00 Temperature Pulse Rate 57 L 58 L 50 L Respiratory 11 L 15 13 Rate Blood Pressure 125/60 88/37 100/43 Blood Pressure [Left] O2 Sat by Pulse 100 100 100 Oximetry 08/15/20 08/15/20 08/15/20 21:15 21:30 21:45 Temperature Pulse Rate 68 53 L 54 L Respiratory 12 8 L 18 Rate Blood Pressure 92/51 108/46 96/39 Blood Pressure [Left] O2 Sat by Pulse 99 100 100 Oximetry 08/15/20 08/15/20 08/15/20 22:00 22:16 22:30 Temperature Pulse Rate 67 64 51 L Respiratory 9 L 14 14 Rate Blood Pressure 90/36 91/30 120/60 Blood Pressure [Left] O2 Sat by Pulse 100 99 100 Oximetry 08/15/20 08/15/20 08/15/20 22:46 23:00 23:16 Temperature Pulse Rate 55 L 62 62 Respiratory 12 11 L 14 Rate Blood Pressure 103/56 101/47 102/44 Blood Pressure [Left] O2 Sat by Pulse 100 100 100 Oximetry 08/15/20 08/15/20 08/16/20 23:30 23:46 00:00 Temperature Pulse Rate 49 L 48 L 49 L Respiratory 12 16 20 Rate Blood Pressure 93/54 94/35 75/28 Blood Pressure [Left] O2 Sat by Pulse 100 100 Oximetry 08/16/20 08/16/20 08/16/20 00:14 00:16 00:30 Temperature Pulse Rate 47 L 48 L 62 Respiratory 13 15 15 Rate Blood Pressure 121/61 92/34 92/34 Blood Pressure [Left] O2 Sat by Pulse 100 100 100 Oximetry 08/16/20 08/16/20 08/16/20 00:46 01:00 01:16 Temperature Pulse Rate 53 L 76 54 L Respiratory 18 12 12 Rate Blood Pressure 142/63 100/53 142/60 Blood Pressure [Left] O2 Sat by Pulse 100 100 100 Oximetry 08/16/20 08/16/20 08/16/20 01:30 01:46 02:00 Temperature Pulse Rate 53 L 62 92 H Respiratory 10 L 14 26 H Rate Blood Pressure 141/66 139/61 153/89 Blood Pressure [Left] O2 Sat by Pulse 95 Oximetry 08/16/20 08/16/20 08/16/20 02:16 02:30 02:46 Temperature Pulse Rate 53 L 53 L 53 L Respiratory 13 16 15 Rate Blood Pressure 134/67 141/62 134/59 Blood Pressure [Left] O2 Sat by Pulse 100 100 98 Oximetry 08/16/20 08/16/20 08/16/20 03:00 03:15 03:30 Temperature Pulse Rate 54 L 53 L 63 Respiratory 12 17 13 Rate Blood Pressure 139/62 148/64 153/73 Blood Pressure [Left] O2 Sat by Pulse 100 99 100 Oximetry 08/16/20 08/16/20 08/16/20 03:46 04:00 04:16 Temperature Pulse Rate 57 L 58 L 50 L Respiratory 13 13 12 Rate Blood Pressure 135/53 135/53 133/61 Blood Pressure [Left] O2 Sat by Pulse 100 100 Oximetry 08/16/20 08/16/20 08/16/20 04:30 04:46 05:00 Temperature Pulse Rate 53 L 57 L 58 L Respiratory 13 11 L 14 Rate Blood Pressure 141/58 139/61 131/63 Blood Pressure [Left] O2 Sat by Pulse 100 100 98 Oximetry 08/16/20 08/16/20 08/16/20 05:15 05:30 05:46 Temperature Pulse Rate 59 L 60 52 L Respiratory 12 17 9 L Rate Blood Pressure 139/66 133/59 133/59 Blood Pressure [Left] O2 Sat by Pulse 100 100 100 Oximetry 08/16/20 08/16/20 08/16/20 06:00 06:16 06:30 Temperature Pulse Rate 55 L 56 L 56 L Respiratory 18 12 12 Rate Blood Pressure 133/62 128/58 Blood Pressure [Left] O2 Sat by Pulse 100 Oximetry 08/16/20 06:46 Temperature Pulse Rate 53 L Respiratory 16 Rate Blood Pressure 125/56 Blood Pressure [Left] O2 Sat by Pulse 100 Oximetry ED Medical Decision Making - Lab Data Result diagrams: 08/16/20 05:20 08/16/20 05:20 - EKG Data -: EKG Interpreted by Me EKG shows normal: sinus rhythm Rate: tachycardia - Radiology Data Radiology results: report reviewed - Medical Decision Making Patient is 75-year-old male brought to the emergency room from his custodial resident for evaluation of altered mental status and low blood pressure. Patient found to be tachycardic at 164 with a blood pressure of 76/36 and oxygen saturation of 100%. Patient mentation is normal as he is asking for water. Patient was seen 2019 for bilateral lower extremities after a fall and found that he has spondylosis and multiple bulge disc and since then patient admitted to long-term facility for inability to walk and take care of himself. Patient is not answering questions appropriately. Sepsis protocol initiated as EKG did not indicate rhythm that would be the cause for his hypotension. Patient received 2 L of normal saline and sepsis work-up was started. Patient looks really dehydrated with significantly dry mucous membrane. Patient received 4 L of normal saline and his blood pressure improved to 90 systolic patient became more alert and oriented and starts talking appropriately. Patient also found to have pressure ulcer in the back and bilateral heel ulcers. Chest x-ray is unremarkable. Patient lactic acid is 4.9. Urine is positive for UTI. So I believe patient source of infection is most likely urosepsis and wound infection. Patient received Zosyn and vancomycin. I discussed the patient with , He agreed to admit the patient to medical service for further management. Critical Care Time: Yes Critical care time in (mins) excluding proc time.: 30 Critical care attestation.: If time is entered above; I have spent that time in minutes in the direct care of this critically ill patient, excluding procedure time. ED Disposition Clinical Impression: Septic shock, Acute renal failure, Acute hypernatremia, UTI (urinary tract infection), Wound infection Disposition: OP ADMIT IP TO THIS HOSP Is pt being admited?: Yes Condition: Stable
--- NOTE | 2020-08-14 11:12 | XRay Report ---
CHEST 1 VIEW INDICATION: sepsis. COMPARISON: None. FINDINGS: Support devices: None. Heart: Normal. Lungs/Pleura: No consolidation or effusion. There are age-indeterminate increased interstitial/reticu lar markings throughout. IMPRESSION: 1. Age-indeterminate increased interstitial/reticular markings could be seen in the setting of lower airways disease. Signer Name: Josep William MD Signed: 08/14/2020 11:08 AM Workstation Name: [id number]
[2020-08-14 11:52] LABS: Hematocrit 32.8 % (35.5-45.6); Hemoglobin 10.9 gm/dl (11.8-15.2); Mean Corpuscular HGB Conc 33 % (32-34); Mean Corpuscular Volume 94 fl (84-94); Platelet Count 431 K/mm3 (140-440); Red Blood Count 3.51 M/mm3 (3.65-5.03); Red Cell Distribution Width 13.7 % (13.2-15.2)
[2020-08-14] MEDS ORDERED: PIPERACILLIN/TAZOBACTAM 3.375 3.375 GM/50 ML BAG IV ONE (12:02)
[2020-08-14 12:16] LABS: Alanine Aminotransferase 15 units/L (7-56); BUN/Creatinine Ratio 33; Bilirubin,Direct < 0.2 mg/dL (0-0.2); Blood Urea Nitrogen 77 mg/dL (9-20); Hemolysis Index 60
[2020-08-14 12:27] LABS: Chol/HDL Ratio 7.14 %; HDL Cholesterol 34 mg/dL (40-59); LDL Cholesterol,Direct 130 mg/dL (50-130)
[2020-08-14 12:35] LABS: Band Neutrophils # (Manual) 1.1 K/mm3; Total Cells Counted 100
[2020-08-14 12:37] LABS: Platelet Estimate Consistent w Auto; RBC Morphology Normal
[2020-08-14] MEDS ORDERED: VANCOMYCIN/NS 1 GM/250 ML 1 GM/250 ML BAG IV ONE (13:19)
[2020-08-14 14:00] LABS: Bacteria,Urine 3+ /HPF (Negative); Bilirubin,Urine NEG (Negative); Blood,Urine MOD (Negative); Color,Urine Yellow (Yellow); Mucus,Urine 2+ /HPF
[2020-08-14 14:01] LABS: WBC,Urine > 182.0 /HPF (0.0-6.0)
[2020-08-14] MEDS ORDERED: MAGNESIUM HYDROXIDE (MOM) ORAL LIQD UDC PO PRN (15:42)
[2020-08-14] MEDS ORDERED: VANCOMYCIN PHARMACY TO DOSE IV SCH (16:00)
[2020-08-14] MEDS ORDERED: PIPERACILLIN/TAZOBACTAM 3.375 3.375 GM/50 ML BAG IV SCH (16:00)
--- NOTE | 2020-08-14 16:06 | History and Physical Report ---
History of Present Illness Date of examination: 08/14/20 Date of admission: 08/14/20 14:32 Chief complaint: Altered mental status Low blood pressure History of present illness: 75-year-old male resident of a retirement brought into the emergency room for evaluation of changes in mental status and low blood pressure. Upon arrival in the emergency room blood pressure was found to be 70s systolic and 30s diastolic, tachycardic in the 160s. Patient was subsequently placed on IV fluid with improvement in his blood pressure and mentation. He denies any chest pain or shortness of breath, no nausea or vomiting, no diarrhea, no headache or dizziness, no hematuria or dysuria. Patient indicates that he has not been able to walk because he was diagnosed with spondylosis and multiple bulging disc. Work-up today reveals a leukocytosis of 22, lactic acid of 4.9, sodium of 152. He also had elevated BUN and creatinine. Urinalysis reveals UTI. Patient has been admitted for dehydration, sepsis secondary to UTI. Past History Past Medical History: No medical history Past Surgical History: No surgical history Social history: other (Resident of the retirement) Family history: no significant family history Medications and Allergies Allergies Allergy/AdvReac Type Severity Reaction Status Date / Time No Known Allergies Allergy Verified 01/10/19 02:20 Home Medications Medication Instructions Recorded Confirmed Last Taken Type Folic Acid [Folvite] 1 mg PO QDAY 01/10/19 01/10/19 Unknown History Primidone [Mysoline] 250 mg PO TID 01/10/19 01/10/19 Unknown History carBAMazepine [Carbamazepine] 200 mg PO TID 01/10/19 01/10/19 Unknown History oxyCODONE /ACETAMINOPHEN [Percocet 1 tab PO Q6H PRN #14 tablet 01/12/19 Unknown Rx 5/325 mg] Active Meds: Active Medications Heparin Sodium (Porcine) (Heparin 5,000 Unit/1 Ml Vial) 5,000 unit SUB-Q Q8HR MARSHALL Sodium Chloride (Nacl 0.9% 1000 Ml) 1,000 mls @ 125 mls/hr IV DIRECT MARSHALL Piperacillin Sod/Tazobactam Sod (Zosyn/Ns 3.375gm/50ml) 3.375 gm in 50 mls @ 100 mls/hr IV Q8H MARSHALL; Protocol Magnesium Hydroxide (Magnesium Hydroxide (Mom) Oral Liqd Udc) 30 ml PO Q4H PRN PRN Reason: Constipation Ondansetron HCl (Ondansetron 4 Mg/2 Ml Inj) 4 mg IV Q8H PRN PRN Reason: Nausea And Vomiting Sodium Chloride (Sodium Chloride 0.9% 10 Ml Flush Syringe) 10 ml IV BID MARSHALL Sodium Chloride (Sodium Chloride 0.9% 10 Ml Flush Syringe) 10 ml IV PRN PRN PRN Reason: LINE FLUSH Review of Systems Constitutional: no fever, no chills Ears, nose, mouth and throat: no nasal congestion, no sore throat Cardiovascular: no chest pain, no palpitations Respiratory: no cough, no shortness of breath Gastrointestinal: no abdominal pain, no nausea, no vomiting, no diarrhea Genitourinary Male: no dysuria, no hematuria, no nocturia Musculoskeletal: no neck pain, no low back pain Integumentary: no rash, no pruritis Neurological: no headaches, no confusion Psychiatric: no anxiety, no depression Exam - Constitutional Vitals: Temp Pulse Resp BP Pulse Ox 98.6 F 85 18 96/50 99 08/14/20 10:15 08/14/20 15:15 08/14/20 15:15 08/14/20 15:15 08/14/20 15:15 General appearance: Present: no acute distress, well-nourished - EENT Eyes: Present: PERRL, EOM intact. Absent: scleral icterus ENT: hearing intact, clear oral mucosa, dentition normal - Neck Neck: Present: supple, normal ROM - Respiratory Respiratory effort: normal Respiratory: bilateral: CTA - Cardiovascular Rhythm: regular Heart Sounds: Present: S1 & S2. Absent: gallop, systolic murmur, diastolic murmur, rub - Extremities Extremities: no ischemia, pulses intact, pulses symmetrical, No edema, normal temperature, normal color, Full ROM, abnormal (Dressing on Otf. Heel Ulcer) Peripheral Pulses: within normal limits - Abdominal General gastrointestinal: Present: soft, non-tender, non-distended, normal bowel sounds. Absent: mass - Integumentary Integumentary: Present: clear, warm, dry - Musculoskeletal Musculoskeletal: strength equal bilaterally - Psychiatric Psychiatric: appropriate mood/affect, intact judgment & insight, memory intact, cooperative - Neurologic Neurologic: CNII-XII intact, no focal deficits, moves all extremities HEART Score - HEART Score Troponin: Troponin T 0.034 ng/mL (0.00-0.029) H 08/14/20 11:02 Results - Labs CBC & Chem 7: 08/14/20 11:02 08/14/20 11:02 Labs: Abnormal lab results 08/14/20 08/14/20 08/14/20 Range/Units 11:02 11:02 11:02 WBC 22.8 H (4.5-11.0) K/mm3 RBC 3.51 L (3.65-5.03) M/mm3 Hgb 10.9 L (11.8-15.2) gm/dl Hct 32.8 L (35.5-45.6) % Seg Neuts % (Manual) 88.0 H (40.0-70.0) % Lymphocytes % (Manual) 3.0 L (13.4-35.0) % Seg Neutrophils # Man 20.1 H (1.8-7.7) K/mm3 Lymphocytes # (Manual) 0.7 L (1.2-5.4) K/mm3 Monocytes # (Manual) 0.9 H (0.0-0.8) K/mm3 Sodium 152 H (137-145) mmol/L Chloride 108.6 H (98-107) mmol/L BUN 77 H (9-20) mg/dL Creatinine 2.3 H (0.8-1.3) mg/dL Glucose 157 H (75-100) mg/dL Lactic Acid 4.90 H* (0.7-2.0) mmol/L Troponin T 0.034 H (0.00-0.029) ng/mL Albumin 3.0 L (3.9-5) g/dL Triglycerides 370 H (2-149) mg/dL Cholesterol 243 H (50-199) mg/dL HDL Cholesterol 34 L (40-59) mg/dL Urine WBC (Auto) (0.0-6.0) /HPF 08/14/20 08/14/20 Range/Units 13:25 13:35 WBC (4.5-11.0) K/mm3 RBC (3.65-5.03) M/mm3 Hgb (11.8-15.2) gm/dl Hct (35.5-45.6) % Seg Neuts % (Manual) (40.0-70.0) % Lymphocytes % (Manual) (13.4-35.0) % Seg Neutrophils # Man (1.8-7.7) K/mm3 Lymphocytes # (Manual) (1.2-5.4) K/mm3 Monocytes # (Manual) (0.0-0.8) K/mm3 Sodium (137-145) mmol/L Chloride (98-107) mmol/L BUN (9-20) mg/dL Creatinine (0.8-1.3) mg/dL Glucose (75-100) mg/dL Lactic Acid 3.20 H* (0.7-2.0) mmol/L Troponin T (0.00-0.029) ng/mL Albumin (3.9-5) g/dL Triglycerides (2-149) mg/dL Cholesterol (50-199) mg/dL HDL Cholesterol (40-59) mg/dL Urine WBC (Auto) > 182.0 H (0.0-6.0) /HPF Assessment and Plan - Patient Problems (1) Septic shock Current Visit: Yes Status: Acute Plan to address problem: Possibly secondary to underlying UTI. Patient also has possibly infected heel and back wounds. We will continue on empiric IV antibiotics and IV fluid. (2) Acute hypernatremia Current Visit: Yes Status: Acute Plan to address problem: Possibly secondary to dehydration. Patient placed on IV fluid. Will monitor chemistry. (3) Acute renal failure Current Visit: Yes Status: Acute Plan to address problem: We will continue on IV fluid, will monitor BUN and creatinine. We also place a consult to nephrology for evaluation and recommendation. (4) UTI (urinary tract infection) Current Visit: Yes Status: Acute Plan to address problem: Patient placed on empiric IV antibiotics. We await Culture results. (5) DVT prophylaxis Current Visit: Yes Status: Acute Plan to address problem: Patient placed on subcutaneous heparin. (6) Full code status Current Visit: Yes Status: Acute Plan to address problem: Patient is a full code.
[2020-08-14] MEDS: PIPERACIL-TAZO 2.25 GM/50 ML 2.25 GM/50 ML BAG IV SCH ×2 (17:43→22:16)
[2020-08-14] MEDS ORDERED: VANCOMYCIN 750 MG in SODIUM CHLORIDE 0.9% 250ML 250 ML IV ONE (18:00)
[2020-08-14] MEDS ORDERED: PIPERACIL-TAZO 2.25 GM/50 ML 2.25 GM/50 ML BAG IV SCH (18:00)
[2020-08-14] MEDS: SODIUM CHLORIDE 0.9% 1000 ML 1,000 ML IV SCH (20:11)
[2020-08-14] MEDS: HEPARIN 5,000 UNIT/1 ML VIAL SUB-Q SCH (22:17)
[2020-08-15] MEDS ORDERED: SODIUM CHLORIDE 0.9% 500 ML 500 ML IV ONE (01:11)
[2020-08-15] MEDS: NORepinephrine/NS 4 MG-250 ML 4 MG/250 ML BAG IV SCH ×2 (02:15→17:45)
--- NOTE | 2020-08-15 03:12 | Procedure Note ---
Date of procedure: 08/15/20 Pre-op diagnosis: Hypotension Post-op diagnosis: same Procedure: Patient is a 75-year-old admitted patient. The patient has experienced hypotension. Patient has had multiple boluses and is now requiring pressors. The hospitalist service, primary team has asked me to place a central line. Procedure note: Central Venous Line Placement: Indication: Hemodynamic monitoring and medication access A time-out was completed verifying correct patient, procedure, site, positioning.. The patient was placed in a dependent position appropriate for central line placement based on the vein to be cannulated. The patients left neck was prepped and draped in sterile fashion. 1% Lidocaine was used to anesthetize the surrounding skin area. An ultrasound was used in a sterile fashion to identify vasculature. A triple lumen catheter was introduced into the the internal jugular using the Seldinger technique and under ultrasound guidance. The catheter was threaded smoothly over the guide wire and appropriate blood return was obtained. Each lumen of the catheter was evacuated of air and flushed with sterile saline. The catheter was then sutured in place to the skin and a sterile dressing applied. Perfusion to the extremity distal to the point of catheter insertion was checked and found to be adequate. A chest x-ray was ordered to assess for pneumothorax and line placement. Estimated Blood Loss: minimal The patient tolerated the procedure well and there were no complications. Care will be transferred back to the primary team. X-ray results: I reviewed the chest x-ray film. Chest x-ray: No pneumonia, no pneumothorax, satisfactory placement of a central venous line., no osseous findings, no acute findings Estimated blood loss: minimal Pathology: none Condition: critical Disposition: ICU
--- NOTE | 2020-08-15 04:04 | XRay Report ---
CHEST 1 VIEW INDICATION / CLINICAL INFORMATION: central line placement. COMPARISON: 08/14/2020 FINDINGS: SUPPORT DEVICES: Left IJ central venous line has been placed. The tip is in the right paratracheal re gion, most likely at the junction of the innominate vein and SVC. The tip is directed horizontally. HEART / MEDIASTINUM: No significant abnormality. LUNGS / PLEURA: No significant pulmonary or pleural abnormality. No pneumothorax. ADDITIONAL FINDINGS: No significant additional findings. IMPRESSION: 1. Interval placement of left IJ central venous line. The tip is most likely at the junction of the i nnominate vein and SVC. The tip is directed horizontally. No pneumothorax. 2. No acute pulmonary or pleural disease. Signer Name: Marissa Jackson MD Signed: 08/15/2020 4:00 AM Workstation Name: [id number]
[2020-08-15] MEDS: SODIUM CHLORIDE 0.9% 1000 ML 1,000 ML IV SCH (04:05)
[2020-08-15] MEDS: HEPARIN 5,000 UNIT/1 ML VIAL SUB-Q SCH ×3 (05:56→22:13)
[2020-08-15] MEDS: PIPERACIL-TAZO 2.25 GM/50 ML 2.25 GM/50 ML BAG IV SCH (05:56)
[2020-08-15 06:20] LABS: Hematocrit 29.9 % (35.5-45.6); Hemoglobin 9.3 gm/dl (11.8-15.2); Mean Corpuscular HGB Conc 31 % (32-34); Mean Corpuscular Volume 94 fl (84-94); Platelet Count 370 K/mm3 (140-440); Red Blood Count 3.18 M/mm3 (3.65-5.03); Red Cell Distribution Width 14.1 % (13.2-15.2)
[2020-08-15 06:47] LABS: INR 1.24 (0.87-1.13)
[2020-08-15 07:30] LABS: Anisocytosis Few; Band Neutrophils # (Manual) 0.3 K/mm3; Hypochromasia Few; Platelet Estimate Consistent w Auto; Total Cells Counted 100
[2020-08-15 07:34] LABS: BUN/Creatinine Ratio 50; Blood Urea Nitrogen 60 mg/dL (9-20); Calcium 7.7 mg/dL (8.4-10.2); Hemolysis Index 1
[2020-08-15] MEDS ORDERED: LACTATED RINGERS 1,000 ML IV ONE ×2 (08:15)
--- NOTE | 2020-08-15 09:05 | Progress Note ---
Assessment and Plan Assessment and plan: -- Septic shock Current Visit: Yes Status: Acute Plan to address problem: On Levophed , titrate systolic blood pressures to more than 100 econdary to underlying UTI, infected heel Treat the underlying cause IV fluids --Leukocytosis/sepsis Current Visit: Yes Status: Acute Plan to address problem: Patient on empiric antibiotics, follow cultures -- Acute hypernatremia Current Visit: Yes Status: Acute . Plan to address problem: Possibly secondary to dehydration. Patient placed on IV fluid. Will monitor chemistry. --Acute renal failure/vasomotor nephropathy Current Visit: Yes Status: Acute Plan to address problem: Gentle hydration closely monitor renal function Avoid nephrotoxins. Renal function improving --UTI (urinary tract infection) Current Visit: Yes Status: Acute Plan to address problem: Probably the cause of hypotension, empiric antibiotics follow cultures ID evaluation if needed --Chronic superficial wound infection; Current Visit: Yes Status: Acute Plan to address problem: wound care, patient is already on IV antibiotics, follow cultures --DVT prophylaxis Current Visit: Yes Status: Acute Plan to address problem: Patient placed on subcutaneous heparin. --Full code status Current Visit: Yes Status: Acute Plan to address problem: Patient is a full code. We will closely monitor the patient and adjust the management as needed Plan of care reviewed with the patient and his nurse Critical care time 45 minutes History Interval history: I seen and examined the patient at the bedside in [facility] this morning Patient's chart and medications reviewed Patient is hypotensive on Levophed Chronically and critically ill looking Minimally communicative Emaciated and cachectic Vital signs noted Hospitalist Physical - Constitutional Vitals: Temp Pulse Resp BP Pulse Ox 97.8 F 71 17 129/67 100 08/14/20 19:00 08/15/20 06:30 08/15/20 06:30 08/15/20 06:30 08/15/20 06:30 General appearance: Present: mild distress, cachectic, other (Chronically ill looking) - EENT Eyes: Present: PERRL, EOM intact - Neck Neck: Present: supple, normal ROM - Respiratory Respiratory effort: normal Respiratory: bilateral: diminished, rhonchi, negative: rales, wheezing - Cardiovascular Rhythm: regular Heart Sounds: Present: S1 & S2 - Extremities Extremities: no ischemia, No edema, abnormal (Chronic multiple wounds) - Abdominal General gastrointestinal: soft, non-tender, non-distended, normal bowel sounds - Integumentary Integumentary: Present: clear, warm - Psychiatric Psychiatric: appropriate mood/affect, cooperative - Neurologic Neurologic: CNII-XII intact, moves all extremities HEART Score - HEART Score Troponin: Troponin T 0.034 ng/mL (0.00-0.029) H 08/14/20 11:02 Results - Labs CBC & Chem 7: 08/16/20 05:20 08/16/20 05:20 Labs: Laboratory Last Values WBC 28.6 K/mm3 (4.5-11.0) H 08/15/20 05:37 RBC 3.18 M/mm3 (3.65-5.03) L 08/15/20 05:37 Hgb 9.3 gm/dl (11.8-15.2) L 08/15/20 05:37 Hct 29.9 % (35.5-45.6) L 08/15/20 05:37 MCV 94 fl (84-94) 08/15/20 05:37 MCH 29 pg (28-32) 08/15/20 05:37 MCHC 31 % (32-34) L 08/15/20 05:37 RDW 14.1 % (13.2-15.2) 08/15/20 05:37 Plt Count 370 K/mm3 (140-440) 08/15/20 05:37 Add Manual Diff Complete 08/15/20 05:37 Total Counted 100 08/15/20 05:37 Seg Neuts % (Manual) 87.0 % (40.0-70.0) H 08/15/20 05:37 Band Neutrophils % 1.0 % 08/15/20 05:37 Lymphocytes % (Manual) 4.0 % (13.4-35.0) L 08/15/20 05:37 Monocytes % (Manual) 7.0 % (0.0-7.3) 08/15/20 05:37 Metamyelocytes % 1.0 % 08/15/20 05:37 Nucleated RBC % Not Reportable 08/15/20 05:37 Seg Neutrophils # Man 24.9 K/mm3 (1.8-7.7) H 08/15/20 05:37 Band Neutrophils # 0.3 K/mm3 08/15/20 05:37 Lymphocytes # (Manual) 1.1 K/mm3 (1.2-5.4) L 08/15/20 05:37 Abs React Lymphs (Man) 0.0 K/mm3 08/15/20 05:37 Monocytes # (Manual) 2.0 K/mm3 (0.0-0.8) H 08/15/20 05:37 Eosinophils # (Manual) 0.0 K/mm3 (0.0-0.4) 08/15/20 05:37 Basophils # (Manual) 0.0 K/mm3 (0.0-0.1) 08/15/20 05:37 Metamyelocytes # 0.3 K/mm3 08/15/20 05:37 Myelocytes # 0.0 K/mm3 08/15/20 05:37 Promyelocytes # 0.0 K/mm3 08/15/20 05:37 Blast Cells # 0.0 K/mm3 08/15/20 05:37 WBC Morphology Not Reportable 08/15/20 05:37 Hypersegmented Neuts Not Reportable 08/15/20 05:37 Hyposegmented Neuts Not Reportable 08/15/20 05:37 Hypogranular Neuts Not Reportable 08/15/20 05:37 Smudge Cells Not Reportable 08/15/20 05:37 Toxic Granulation Not Reportable 08/15/20 05:37 Toxic Vacuolation Not Reportable 08/15/20 05:37 Dohle Bodies Not Reportable 08/15/20 05:37 Pelger-Huet Anomaly Not Reportable 08/15/20 05:37 Kassi Rods Not Reportable 08/15/20 05:37 Platelet Estimate Consistent w auto 08/15/20 05:37 Clumped Platelets Not Reportable 08/15/20 05:37 Plt Clumps, EDTA Not Reportable 08/15/20 05:37 Large Platelets Not Reportable 08/15/20 05:37 Giant Platelets Not Reportable 08/15/20 05:37 Platelet Satelliting Not Reportable 08/15/20 05:37 Plt Morphology Comment Not Reportable 08/15/20 05:37 RBC Morphology Not Reportable 08/15/20 05:37 Dimorphic RBCs Not Reportable 08/15/20 05:37 Polychromasia Not Reportable 08/15/20 05:37 Hypochromasia Few 08/15/20 05:37 Poikilocytosis Not Reportable 08/15/20 05:37 Anisocytosis Few 08/15/20 05:37 Microcytosis Not Reportable 08/15/20 05:37 Macrocytosis Not Reportable 08/15/20 05:37 Spherocytes Not Reportable 08/15/20 05:37 Pappenheimer Bodies Not Reportable 08/15/20 05:37 Sickle Cells Not Reportable 08/15/20 05:37 Target Cells Not Reportable 08/15/20 05:37 Tear Drop Cells Not Reportable 08/15/20 05:37 Ovalocytes Not Reportable 08/15/20 05:37 Helmet Cells Not Reportable 08/15/20 05:37 [place] Bodies Not Reportable 08/15/20 05:37 [place] Rings Not Reportable 08/15/20 05:37 Rhea Cells Not Reportable 08/15/20 05:37 Bite Cells Not Reportable 08/15/20 05:37 Crenated Cell Not Reportable 08/15/20 05:37 Elliptocytes Not Reportable 08/15/20 05:37 Acanthocytes (Spur) Not Reportable 08/15/20 05:37 Rouleaux Not Reportable 08/15/20 05:37 Hemoglobin C Crystals Not Reportable 08/15/20 05:37 Schistocytes Not Reportable 08/15/20 05:37 Malaria parasites Not Reportable 08/15/20 05:37 Richard Bodies Not Reportable 08/15/20 05:37 Hem Pathologist Commnt No 08/15/20 05:37 PT 15.4 Sec. (12.2-14.9) H 08/15/20 05:37 INR 1.24 (0.87-1.13) H 08/15/20 05:37 Sodium 155 mmol/L (137-145) H 08/15/20 05:37 Potassium 3.6 mmol/L (3.6-5.0) D 08/15/20 05:37 Chloride 120.8 mmol/L (98-107) H 08/15/20 05:37 Carbon Dioxide 18 mmol/L (22-30) L 08/15/20 05:37 Anion Gap 20 mmol/L 08/15/20 05:37 BUN 60 mg/dL (9-20) H 08/15/20 05:37 Creatinine 1.2 mg/dL (0.8-1.3) 08/15/20 05:37 Estimated GFR > 60 ml/min 08/15/20 05:37 BUN/Creatinine Ratio 50 % 08/15/20 05:37 Glucose 138 mg/dL (75-100) H 08/15/20 05:37 Lactic Acid 1.50 mmol/L (0.7-2.0) 08/14/20 18:37 Calcium 7.7 mg/dL (8.4-10.2) L 08/15/20 05:37 Total Bilirubin 0.30 mg/dL (0.1-1.2) 08/14/20 11:02 Direct Bilirubin < 0.2 mg/dL (0-0.2) 08/14/20 11:02 Indirect Bilirubin 0.1 mg/dL 08/14/20 11:02 AST 28 units/L (5-40) 08/14/20 11:02 ALT 15 units/L (7-56) 08/14/20 11:02 Alkaline Phosphatase 65 units/L (35-129) 08/14/20 11:02 Troponin T 0.034 ng/mL (0.00-0.029) H 08/14/20 11:02 Total Protein 8.2 g/dL (6.3-8.2) 08/14/20 11:02 Albumin 3.0 g/dL (3.9-5) L 08/14/20 11:02 Albumin/Globulin Ratio 0.6 % 08/14/20 11:02 Triglycerides 370 mg/dL (2-149) H 08/14/20 11:02 Cholesterol 243 mg/dL (50-199) H 08/14/20 11:02 LDL Cholesterol Direct 130 mg/dL (50-130) 08/14/20 11:02 HDL Cholesterol 34 mg/dL (40-59) L 08/14/20 11:02 Cholesterol/HDL Ratio 7.14 % 08/14/20 11:02 Urine Color Yellow (Yellow) 08/14/20 13:25 Urine Turbidity Turbid (Clear) 08/14/20 13:25 Urine pH 5.0 (5.0-7.0) 08/14/20 13:25 Ur Specific [place] 1.020 (1.003-1.030) 08/14/20 13:25 Urine Protein 100 mg/dl mg/dL (Negative) 08/14/20 13:25 Urine Glucose (UA) Neg mg/dL (Negative) 08/14/20 13:25 Urine Ketones Tr mg/dL (Negative) 08/14/20 13:25 Urine Blood Mod (Negative) 08/14/20 13:25 Urine Nitrite Neg (Negative) 08/14/20 13:25 Urine Bilirubin Neg (Negative) 08/14/20 13:25 Urine Urobilinogen 2.0 mg/dL (<2.0) 08/14/20 13:25 Ur Leukocyte Esterase Mod (Negative) 08/14/20 13:25 Urine WBC (Auto) > 182.0 /HPF (0.0-6.0) H 08/14/20 13:25 Urine RBC (Auto) 56.0 /HPF (0.0-6.0) 08/14/20 13:25 U Epithel Cells (Auto) 2.0 /HPF (0-13.0) 08/14/20 13:25 Urine Bacteria (Auto) 3+ /HPF (Negative) 08/14/20 13:25 Urine WBC Clumps 3+ /HPF 08/14/20 13:25 Urine Mucus 2+ /HPF 08/14/20 13:25 Microbiology: Microbiology 08/14/20 11:02 Peripheral/Venous Blood Culture - Preliminary Culture in Progress 08/14/20 11:02 Peripheral/Venous Blood Culture - Preliminary Culture in Progress Rivas/IV: IV Catheter Type [Left INT / Saline Lock Antecubital] Active Medications - Current Medications Current Medications: Generic Name Dose Route Start Last Admin Trade Name Vilma PRN Reason Stop Dose Admin Heparin Sodium (Porcine) 5,000 unit 08/14/20 22:00 08/15/20 05:56 Heparin 5,000 Unit/1 Ml Vial SUB-Q 5,000 unit Q8HR MARSHALL Administration Sodium Chloride 1,000 mls @ 125 mls/hr 08/14/20 15:45 08/15/20 04:05 Nacl 0.9% 1000 Ml IV 150 mls/hr DIRECT MARSHALL Administration Piperacillin Sod/Tazobactam Sod 2.25 gm in 50 mls @ 100 mls/hr 08/14/20 16:00 08/15/20 05:56 Zosyn/Ns 2.25 Gm/50ml IV 100 mls/hr Q8HR MARSHALL Administration Vancomycin HCl 1,250 mg/ 275 mls @ 166.667 mls/hr 08/15/20 17:00 Sodium Chloride IV Q24H MARSHALL Norepinephrine 4 mg in 250 mls @ 7.5 mls/hr 08/15/20 02:00 08/15/20 06:01 Levophed Drip 4 Mg/Ns 250 Ml IV 6 mcg/min TITR MARSHALL 22.5 mls/hr Titration Protocol 2 MCG/MIN Lactated Ringer's 1,000 mls @ 999 mls/hr 08/15/20 08:15 Lactated Ringers IV 08/15/20 09:15 BOLUS ONE Lactated Ringer's 1,000 mls @ 999 mls/hr 08/15/20 08:15 Lactated Ringers IV 08/15/20 09:15 BOLUS ONE Magnesium Hydroxide 30 ml 08/14/20 15:42 Magnesium Hydroxide (Mom) Oral Liqd Udc PO Q4H PRN Constipation Ondansetron HCl 4 mg 08/14/20 15:42 Ondansetron 4 Mg/2 Ml Inj IV Q8H PRN Nausea And Vomiting Sodium Chloride 10 ml 08/14/20 22:00 08/14/20 22:17 Sodium Chloride 0.9% 10 Ml Flush Syringe IV 10 ml BID MARSHALL Administration Sodium Chloride 10 ml 08/14/20 15:42 Sodium Chloride 0.9% 10 Ml Flush Syringe IV PRN PRN LINE FLUSH
--- NOTE | 2020-08-15 09:33 | Consultation ---
History of Present Illness - Reason for Consult Consult date: 08/15/20 Hypotension/shock Requesting physician: DALLIN SIDDIQUI - History of Present Illness 75 y/o male, resident of long-term, admitted via the ED for hypotension and altered mental state. Patient essentially on room air as his nasal cannula is not in his nose. Awake and alert but hypotensive. Not able to give much history. Currently on levophed. Past History Past Medical History: No medical history Past Surgical History: No surgical history Social history: other (Resident of the long-term) Family history: no significant family history Medications and Allergies Allergies Allergy/AdvReac Type Severity Reaction Status Date / Time No Known Allergies Allergy Verified 01/10/19 02:20 Home Medications Medication Instructions Recorded Confirmed Last Taken Type Folic Acid [Folvite] 1 mg PO QDAY 01/10/19 08/14/20 Unknown History Primidone [Mysoline] 250 mg PO TID 01/10/19 08/14/20 Unknown History carBAMazepine [Carbamazepine] 200 mg PO TID 01/10/19 08/14/20 Unknown History oxyCODONE /ACETAMINOPHEN [Percocet 1 tab PO Q6H PRN #14 tablet 01/12/19 08/14/20 Unknown Rx 5/325 mg] Aspirin [Aspirin BABY CHEW TAB] 81 mg PO QDAY 08/15/20 08/15/20 Unknown History AtorvaSTATin [Lipitor] 40 mg PO QHS 08/15/20 08/15/20 Unknown History Citalopram Hydrobromide 20 mg PO QDAY 08/15/20 08/15/20 Unknown History [Citalopram HBr] Ergocalciferol [Vitamin D2] 1 cap PO QWEEK 08/15/20 08/15/20 Unknown History Folic Acid [Folvite] 1 mg PO QDAY 08/15/20 08/15/20 Unknown History Midodrine [Proamatine] 2.5 mg PO BID 08/15/20 08/15/20 Unknown History Mirtazapine 7.5 mg PO QHS 08/15/20 08/15/20 Unknown History guaiFENesin ER [Mucinex ER] 600 mg PO Q12H 08/15/20 08/15/20 Unknown History oxyCODONE /ACETAMINOPHEN [Percocet 1 tab PO Q6HR PRN 08/15/20 08/15/20 Unknown History 5/325] tiZANidine [Zanaflex 4mg TAB] 4 mg PO BID 08/15/20 08/15/20 Unknown History Active Meds: Active Medications Carbamazepine (Carbamazepine 200 Mg Tab) 200 mg PO TID [facility] Folic Acid (Folic Acid 1 Mg Tab) 1 mg PO QDAY [facility] Heparin Sodium (Porcine) (Heparin 5,000 Unit/1 Ml Vial) 5,000 unit SUB-Q Q8HR [facility] Last Admin: 08/15/20 05:56 Dose: 5,000 unit Documented by: Piperacillin Sod/Tazobactam Sod (Zosyn/Ns 2.25 Gm/50ml) 2.25 gm in 50 mls @ 100 mls/hr IV Q8HR [facility] Last Admin: 08/15/20 05:56 Dose: 100 mls/hr Documented by: Vancomycin HCl 1,250 mg/ (Sodium Chloride) 275 mls @ 166.667 mls/hr IV Q24H [facility] Norepinephrine (Levophed Drip 4 Mg/Ns 250 Ml) 4 mg in 250 mls @ 7.5 mls/hr IV TITR [facility]; Protocol Last Titration: 08/15/20 06:01 Dose: 6 mcg/min, 22.5 mls/hr Documented by: Magnesium Hydroxide (Magnesium Hydroxide (Mom) Oral Liqd Udc) 30 ml PO Q4H PRN PRN Reason: Constipation Ondansetron HCl (Ondansetron 4 Mg/2 Ml Inj) 4 mg IV Q8H PRN PRN Reason: Nausea And Vomiting Primidone (Primidone 250 Mg Tab) 250 mg PO TID [facility] Sodium Chloride (Sodium Chloride 0.9% 10 Ml Flush Syringe) 10 ml IV BID [facility] Last Admin: 08/14/20 22:17 Dose: 10 ml Documented by: Sodium Chloride (Sodium Chloride 0.9% 10 Ml Flush Syringe) 10 ml IV PRN PRN PRN Reason: LINE FLUSH Review of Systems All systems: negative Exam - Constitutional Vitals: Temp Pulse Resp BP Pulse Ox 97.8 F 71 17 129/67 100 08/14/20 19:00 08/15/20 06:30 08/15/20 06:30 08/15/20 06:30 08/15/20 06:30 General appearance: Present: no acute distress - EENT Eyes: Present: PERRL, EOM intact ENT: hearing intact, poor dentition - Neck Neck: Present: supple, normal ROM - Respiratory Respiratory effort: normal Respiratory: bilateral: CTA - Cardiovascular Rhythm: other (sinus andres) Heart Sounds: Present: S1 & S2 - Extremities Extremities: abnormal Extremity abnormal: ulceration, deformity, pulses diminished Results - Labs CBC & Chem 7: 08/16/20 05:20 08/16/20 05:20 Labs: Abnormal lab results 08/14/20 08/14/20 08/14/20 Range/Units 11:02 11:02 11:02 WBC 22.8 H (4.5-11.0) K/mm3 RBC 3.51 L (3.65-5.03) M/mm3 Hgb 10.9 L (11.8-15.2) gm/dl Hct 32.8 L (35.5-45.6) % MCHC (32-34) % Seg Neuts % (Manual) 88.0 H (40.0-70.0) % Lymphocytes % (Manual) 3.0 L (13.4-35.0) % Seg Neutrophils # Man 20.1 H (1.8-7.7) K/mm3 Lymphocytes # (Manual) 0.7 L (1.2-5.4) K/mm3 Monocytes # (Manual) 0.9 H (0.0-0.8) K/mm3 PT (12.2-14.9) Sec. INR (0.87-1.13) Sodium 152 H (137-145) mmol/L Chloride 108.6 H (98-107) mmol/L Carbon Dioxide (22-30) mmol/L BUN 77 H (9-20) mg/dL Creatinine 2.3 H (0.8-1.3) mg/dL Glucose 157 H (75-100) mg/dL Lactic Acid 4.90 H* (0.7-2.0) mmol/L Calcium (8.4-10.2) mg/dL Troponin T 0.034 H (0.00-0.029) ng/mL Albumin 3.0 L (3.9-5) g/dL Triglycerides 370 H (2-149) mg/dL Cholesterol 243 H (50-199) mg/dL HDL Cholesterol 34 L (40-59) mg/dL Urine WBC (Auto) (0.0-6.0) /HPF 01/14/21 01/14/21 01/15/21 Range/Units 13:25 13:35 05:37 WBC 28.6 H (4.5-11.0) K/mm3 RBC 3.18 L (3.65-5.03) M/mm3 Hgb 9.3 L (11.8-15.2) gm/dl Hct 29.9 L (35.5-45.6) % MCHC 31 L (32-34) % Seg Neuts % (Manual) 87.0 H (40.0-70.0) % Lymphocytes % (Manual) 4.0 L (13.4-35.0) % Seg Neutrophils # Man 24.9 H (1.8-7.7) K/mm3 Lymphocytes # (Manual) 1.1 L (1.2-5.4) K/mm3 Monocytes # (Manual) 2.0 H (0.0-0.8) K/mm3 PT (12.2-14.9) Sec. INR (0.87-1.13) Sodium (137-145) mmol/L Chloride (98-107) mmol/L Carbon Dioxide (22-30) mmol/L BUN (9-20) mg/dL Creatinine (0.8-1.3) mg/dL Glucose (75-100) mg/dL Lactic Acid 3.20 H* (0.7-2.0) mmol/L Calcium (8.4-10.2) mg/dL Troponin T (0.00-0.029) ng/mL Albumin (3.9-5) g/dL Triglycerides (2-149) mg/dL Cholesterol (50-199) mg/dL HDL Cholesterol (40-59) mg/dL Urine WBC (Auto) > 182.0 H (0.0-6.0) /HPF 08/15/20 08/15/20 Range/Units 05:37 05:37 WBC (4.5-11.0) K/mm3 RBC (3.65-5.03) M/mm3 Hgb (11.8-15.2) gm/dl Hct (35.5-45.6) % MCHC (32-34) % Seg Neuts % (Manual) (40.0-70.0) % Lymphocytes % (Manual) (13.4-35.0) % Seg Neutrophils # Man (1.8-7.7) K/mm3 Lymphocytes # (Manual) (1.2-5.4) K/mm3 Monocytes # (Manual) (0.0-0.8) K/mm3 PT 15.4 H (12.2-14.9) Sec. INR 1.24 H (0.87-1.13) Sodium 155 H (137-145) mmol/L Chloride 120.8 H (98-107) mmol/L Carbon Dioxide 18 L (22-30) mmol/L BUN 60 H (9-20) mg/dL Creatinine (0.8-1.3) mg/dL Glucose 138 H (75-100) mg/dL Lactic Acid (0.7-2.0) mmol/L Calcium 7.7 L (8.4-10.2) mg/dL Troponin T (0.00-0.029) ng/mL Albumin (3.9-5) g/dL Triglycerides (2-149) mg/dL Cholesterol (50-199) mg/dL HDL Cholesterol (40-59) mg/dL Urine WBC (Auto) (0.0-6.0) /HPF - Imaging and Cardiology Chest x-ray: image reviewed (clear CXR) Assessment and Plan 75 y/o male with hypotension and electrolyte imbalances with acute renal failure. Per patient he has not been eating and drinking like he should so likely volume deplete. Would ask that bolus fluids be used to try to wean patient of vasopressor as quickly as possible and then use maintenance therapy to correct electrolyte abnormalities. Appears to be septic as well from a urinary source. Will change abx therapy to something more broad spectrum Follow up blood and urine cultures. CCT 31 minutes.
[2020-08-15] MEDS: FOLIC ACID 1 MG TAB PO SCH (10:20)
--- NOTE | 2020-08-15 10:41 | Consultation ---
History of Present Illness - Reason for Consult Consult date: 08/15/20 - History of Present Illness 75-year-old male resident of a long term brought into the emergency room for evaluation of changes in mental status and low blood pressure. onn admission, labs were significant for elevated Cr and hypernatremia. Urinalysis reveals UTI. renal consult was requested for FAZAL and hypernatremia management Past History Past Medical History: No medical history Past Surgical History: No surgical history Social history: other (Resident of the long term) Family history: no significant family history Medications and Allergies Allergies Allergy/AdvReac Type Severity Reaction Status Date / Time No Known Allergies Allergy Verified 01/10/19 02:20 Home Medications Medication Instructions Recorded Confirmed Last Taken Type Folic Acid [Folvite] 1 mg PO QDAY 01/10/19 08/14/20 Unknown History Primidone [Mysoline] 250 mg PO TID 01/10/19 08/14/20 Unknown History carBAMazepine [Carbamazepine] 200 mg PO TID 01/10/19 08/14/20 Unknown History oxyCODONE /ACETAMINOPHEN [Percocet 1 tab PO Q6H PRN #14 tablet 01/12/19 08/14/20 Unknown Rx 5/325 mg] Active Meds: Active Medications Carbamazepine (Carbamazepine 200 Mg Tab) 200 mg PO TID [facility] Folic Acid (Folic Acid 1 Mg Tab) 1 mg PO QDAY [facility] Last Admin: 08/15/20 10:20 Dose: Not Given Documented by: Heparin Sodium (Porcine) (Heparin 5,000 Unit/1 Ml Vial) 5,000 unit SUB-Q Q8HR [facility] Last Admin: 08/15/20 05:56 Dose: 5,000 unit Documented by: Vancomycin HCl 1,250 mg/ (Sodium Chloride) 275 mls @ 166.667 mls/hr IV Q24H [facility] Norepinephrine (Levophed Drip 4 Mg/Ns 250 Ml) 4 mg in 250 mls @ 7.5 mls/hr IV TITR [facility]; Protocol Last Titration: 08/15/20 06:01 Dose: 6 mcg/min, 22.5 mls/hr Documented by: Cefepime HCl (Cefepime/Ns 2 Gm/100 Ml) 2 gm in 100 mls @ 200 mls/hr IV Q8H [facility]; Protocol Sodium Chloride (Nacl 0.45% 1000 Ml) 1,000 mls @ 125 mls/hr IV DIRECT [facility] Magnesium Hydroxide (Magnesium Hydroxide (Mom) Oral Liqd Udc) 30 ml PO Q4H PRN PRN Reason: Constipation Ondansetron HCl (Ondansetron 4 Mg/2 Ml Inj) 4 mg IV Q8H PRN PRN Reason: Nausea And Vomiting Primidone (Primidone 250 Mg Tab) 250 mg PO TID [facility] Sodium Chloride (Sodium Chloride 0.9% 10 Ml Flush Syringe) 10 ml IV BID [facility] Last Admin: 08/14/20 22:17 Dose: 10 ml Documented by: Sodium Chloride (Sodium Chloride 0.9% 10 Ml Flush Syringe) 10 ml IV PRN PRN PRN Reason: LINE FLUSH Exam - Vital Signs Vital signs: Vital Signs Temp Pulse Resp BP Pulse Ox 98.6 F 172 H 22 79/43 92 08/14/20 10:15 08/14/20 10:15 08/14/20 10:15 08/14/20 10:15 08/14/20 10:15 Results - Lab Results 08/15/20 05:37 08/15/20 05:37 Most recent lab results Calcium 7.7 mg/dL (8.4-10.2) L 08/15/20 05:37 Assessment and Plan (1) Septic shock (2) Acute hypernatremia (3) Acute renal failure (4) UTI (urinary tract infection) FAZAL secondary to prerenla azotemia, Cr is trending down with IVF will start 1/2 NS for volume repletion and hypernatremia urine lytes ordered strict I&O daily weight avoid nephrotoxins Renally dose emds Yan singh MD [phone]
[2020-08-15] MEDS ORDERED: LACTATED RINGERS 1,000 ML ONE (10:42)
[2020-08-15] MEDS: CEFEPIME/NS 2 GM/100 ML 2 GM/100 ML BAG IV SCH ×2 (11:20→18:22)
[2020-08-15] MEDS: PRIMIDONE 250 MG TAB PO SCH ×2 (14:35→21:41)
[2020-08-15] MEDS: carBAMazepine 200 MG TAB PO SCH ×2 (14:35→21:41)
[2020-08-15 14:52] LABS: Hematocrit 29.6 % (35.5-45.6); Hemoglobin 9.1 gm/dl (11.8-15.2); Mean Corpuscular HGB Conc 31 % (32-34); Mean Corpuscular Volume 96 fl (84-94); Platelet Count 314 K/mm3 (140-440); Red Blood Count 3.07 M/mm3 (3.65-5.03); Red Cell Distribution Width 14.4 % (13.2-15.2)
[2020-08-15 15:05] LABS: BUN/Creatinine Ratio 50; Blood Urea Nitrogen 50 mg/dL (9-20); Calcium 7.6 mg/dL (8.4-10.2); Hemolysis Index 0
[2020-08-15 16:31] LABS: Band Neutrophils # (Manual) 1.1 K/mm3; Total Cells Counted 100
[2020-08-15 16:33] LABS: Large Platelets Rare; Platelet Estimate Consistent w Auto
[2020-08-15] MEDS: VANCOMYCIN 1,250 MG in SODIUM CHLORIDE 0.9% 250ML 250 ML IV SCH (17:36)
[2020-08-15] MEDS: SODIUM CHLORIDE 0.45% 1000 ML 1,000 ML IV SCH (17:37)
[2020-08-15 22:40] LABS: Creatinine,Urine 35.9 mg/dL (0.1-20.0); Protein/Creatinine Ratio,Urine 3.2
[2020-08-16] MEDS: ONDANSETRON 4 MG/2 ML INJ IV PRN (01:23)
[2020-08-16] MEDS: MORPHINE 2 MG/1 ML INJ IV PRN (01:23)
[2020-08-16] MEDS: NORepinephrine/NS 4 MG-250 ML 4 MG/250 ML BAG IV SCH ×3 (01:24→17:33)
[2020-08-16] MEDS: SODIUM CHLORIDE 0.45% 1000 ML 1,000 ML IV SCH ×3 (01:27→20:45)
[2020-08-16] MEDS: CEFEPIME/NS 2 GM/100 ML 2 GM/100 ML BAG IV SCH ×3 (03:30→20:43)
[2020-08-16 06:24] LABS: Blood Urea Nitrogen 32 mg/dL (9-20); Calcium 7.5 mg/dL (8.4-10.2); Hematocrit 29.3 % (35.5-45.6); Hemoglobin 9.2 gm/dl (11.8-15.2); Hemolysis Index 23; Mean Corpuscular HGB Conc 32 % (32-34); Mean Corpuscular Volume 95 fl (84-94); Platelet Count 353 K/mm3 (140-440); Red Blood Count 3.07 M/mm3 (3.65-5.03); Red Cell Distribution Width 14.2 % (13.2-15.2)
[2020-08-16 06:28] LABS: Alanine Aminotransferase 11 units/L (7-56); Albumin 2.5 g/dL (3.9-5); Lymphocytes % (Auto) 4.8 % (13.4-35.0); Monocytes % (Auto) 5.7 % (0.0-7.3)
[2020-08-16 06:29] LABS: Basophils % (Auto) 0.2 % (0.0-1.8); Lymphocytes # (Auto) 1.1 K/mm3 (1.2-5.4); Monocytes # (Auto) 1.3 K/mm3 (0.0-0.8)
[2020-08-16 06:46] LABS: BUN/Creatinine Ratio 46
[2020-08-16 06:49] LABS: Bilirubin,Direct < 0.2 mg/dL (0-0.2)
[2020-08-16] MEDS: HEPARIN 5,000 UNIT/1 ML VIAL SUB-Q SCH ×3 (09:13→22:27)
[2020-08-16] MEDS: PRIMIDONE 250 MG TAB PO SCH ×3 (09:13→22:25)
[2020-08-16] MEDS: MIDODRINE 2.5 MG TAB PO SCH ×3 (09:13→16:49)
[2020-08-16] MEDS: carBAMazepine 200 MG TAB PO SCH ×3 (09:13→22:27)
[2020-08-16] MEDS: FOLIC ACID 1 MG TAB PO SCH (09:41)
--- NOTE | 2020-08-16 10:52 | Progress Note ---
Assessment and Plan 75 y/o male with hypotension and electrolyte imbalances with acute renal failure. 1. Wean Vasopressors for MAPs> 65 2. cOntinue abx therapy for now. Follow up cultures 3. Follow up renal recs. Really need bolus fluids to get patient off of pressors and then would like to use maintenance therapy if still needed 4. Nutrition consult 5. Guarded prognosis CCT 31 minutes. 08/15/20 Per patient he has not been eating and drinking like he should so likely volume deplete. Would ask that bolus fluids be used to try to wean patient of vasopressor as quickly as possible and then use maintenance therapy to correct electrolyte abnormalities. Appears to be septic as well from a urinary source. Will change abx therapy to something more broad spectrum Follow up blood and urine cultures. CCT 31 minutes. Subjective Date of service: 08/16/20 Interval history: No acute events. On 8 . Awake and alert. Objective - Constitutional Vitals: Vital Signs - 12hr 08/15/20 08/15/20 08/15/20 23:00 23:16 23:30 Pulse Rate 62 62 49 L Respiratory 11 L 14 12 Rate Blood Pressure 101/47 102/44 93/54 O2 Sat by Pulse 100 100 100 Oximetry 08/15/20 08/16/20 08/16/20 23:46 00:00 00:14 Pulse Rate 48 L 49 L 47 L Respiratory 16 20 13 Rate Blood Pressure 94/35 75/28 121/61 O2 Sat by Pulse 100 100 Oximetry 08/16/20 08/16/20 08/16/20 00:16 00:30 00:46 Pulse Rate 48 L 62 53 L Respiratory 15 15 18 Rate Blood Pressure 92/34 92/34 142/63 O2 Sat by Pulse 100 100 100 Oximetry 08/16/20 08/16/20 08/16/20 01:00 01:16 01:30 Pulse Rate 76 54 L 53 L Respiratory 12 12 10 L Rate Blood Pressure 100/53 142/60 141/66 O2 Sat by Pulse 100 100 Oximetry 08/16/20 08/16/20 08/16/20 01:46 02:00 02:16 Pulse Rate 62 92 H 53 L Respiratory 14 26 H 13 Rate Blood Pressure 139/61 153/89 134/67 O2 Sat by Pulse 95 100 Oximetry 08/16/20 08/16/20 08/16/20 02:30 02:46 03:00 Pulse Rate 53 L 53 L 54 L Respiratory 16 15 12 Rate Blood Pressure 141/62 134/59 139/62 O2 Sat by Pulse 100 98 100 Oximetry 08/16/20 08/16/20 08/16/20 03:15 03:30 03:46 Pulse Rate 53 L 63 57 L Respiratory 17 13 13 Rate Blood Pressure 148/64 153/73 135/53 O2 Sat by Pulse 99 100 100 Oximetry 08/16/20 08/16/20 08/16/20 04:00 04:16 04:30 Pulse Rate 58 L 50 L 53 L Respiratory 13 12 13 Rate Blood Pressure 135/53 133/61 141/58 O2 Sat by Pulse 100 100 Oximetry 08/16/20 08/16/20 08/16/20 04:46 05:00 05:15 Pulse Rate 57 L 58 L 59 L Respiratory 11 L 14 12 Rate Blood Pressure 139/61 131/63 139/66 O2 Sat by Pulse 100 98 100 Oximetry 08/16/20 08/16/20 08/16/20 05:30 05:46 06:00 Pulse Rate 60 52 L 55 L Respiratory 17 9 L 18 Rate Blood Pressure 133/59 133/59 O2 Sat by Pulse 100 100 Oximetry 08/16/20 08/16/20 08/16/20 06:16 06:30 06:46 Pulse Rate 56 L 56 L 53 L Respiratory 12 12 16 Rate Blood Pressure 133/62 128/58 125/56 O2 Sat by Pulse 100 100 Oximetry - Labs CBC & Chem 7: 08/16/20 05:20 08/16/20 05:20 Labs: Abnormal lab results 08/15/20 08/15/20 08/15/20 Range/Units 14:22 14:22 14:22 WBC 22.0 H (4.5-11.0) K/mm3 RBC 3.07 L (3.65-5.03) M/mm3 Hgb 9.1 L (11.8-15.2) gm/dl Hct 29.6 L (35.5-45.6) % MCV 96 H (84-94) fl MCHC 31 L (32-34) % Lymph % (Auto) (13.4-35.0) % Lymph # (Auto) (1.2-5.4) K/mm3 Pratt # (Auto) (0.0-0.8) K/mm3 Seg Neutrophils % (40.0-70.0) % Seg Neuts % (Manual) 85.0 H (40.0-70.0) % Lymphocytes % (Manual) 3.0 L (13.4-35.0) % Seg Neutrophils # (1.8-7.7) K/mm3 Seg Neutrophils # Man 18.7 H (1.8-7.7) K/mm3 Lymphocytes # (Manual) 0.7 L (1.2-5.4) K/mm3 Monocytes # (Manual) 1.3 H (0.0-0.8) K/mm3 Sodium 156 H (137-145) mmol/L Potassium (3.6-5.0) mmol/L Chloride 122.6 H (98-107) mmol/L Carbon Dioxide (22-30) mmol/L BUN 50 H (9-20) mg/dL Creatinine (0.8-1.3) mg/dL Glucose 107 H (75-100) mg/dL Calcium 7.6 L (8.4-10.2) mg/dL Phosphorus (2.5-4.5) mg/dL Total Creatine Kinase 177 H (55-170) units/L Total Protein (6.3-8.2) g/dL Albumin (3.9-5) g/dL Urine Creatinine (0.1-20.0) mg/dL Urine Total Protein (5-11.8) mg/dL 08/15/20 08/15/20 08/16/20 Range/Units 22:12 22:12 05:20 WBC 23.6 H (4.5-11.0) K/mm3 RBC 3.07 L (3.65-5.03) M/mm3 Hgb 9.2 L (11.8-15.2) gm/dl Hct 29.3 L (35.5-45.6) % MCV 95 H (84-94) fl MCHC (32-34) % Lymph % (Auto) 4.8 L (13.4-35.0) % Lymph # (Auto) 1.1 L (1.2-5.4) K/mm3 Pratt # (Auto) 1.3 H (0.0-0.8) K/mm3 Seg Neutrophils % 89.3 H (40.0-70.0) % Seg Neuts % (Manual) (40.0-70.0) % Lymphocytes % (Manual) (13.4-35.0) % Seg Neutrophils # 21.1 H (1.8-7.7) K/mm3 Seg Neutrophils # Man (1.8-7.7) K/mm3 Lymphocytes # (Manual) (1.2-5.4) K/mm3 Monocytes # (Manual) (0.0-0.8) K/mm3 Sodium (137-145) mmol/L Potassium (3.6-5.0) mmol/L Chloride (98-107) mmol/L Carbon Dioxide (22-30) mmol/L BUN (9-20) mg/dL Creatinine (0.8-1.3) mg/dL Glucose (75-100) mg/dL Calcium (8.4-10.2) mg/dL Phosphorus (2.5-4.5) mg/dL Total Creatine Kinase (55-170) units/L Total Protein (6.3-8.2) g/dL Albumin (3.9-5) g/dL Urine Creatinine 36.0 H 35.9 H (0.1-20.0) mg/dL Urine Total Protein 115 H (5-11.8) mg/dL 08/16/20 08/16/20 Range/Units 05:20 05:20 WBC (4.5-11.0) K/mm3 RBC (3.65-5.03) M/mm3 Hgb (11.8-15.2) gm/dl Hct (35.5-45.6) % MCV (84-94) fl MCHC (32-34) % Lymph % (Auto) (13.4-35.0) % Lymph # (Auto) (1.2-5.4) K/mm3 Pratt # (Auto) (0.0-0.8) K/mm3 Seg Neutrophils % (40.0-70.0) % Seg Neuts % (Manual) (40.0-70.0) % Lymphocytes % (Manual) (13.4-35.0) % Seg Neutrophils # (1.8-7.7) K/mm3 Seg Neutrophils # Man (1.8-7.7) K/mm3 Lymphocytes # (Manual) (1.2-5.4) K/mm3 Monocytes # (Manual) (0.0-0.8) K/mm3 Sodium 154 H (137-145) mmol/L Potassium 3.5 L (3.6-5.0) mmol/L Chloride 122.7 H (98-107) mmol/L Carbon Dioxide 16 L (22-30) mmol/L BUN 32 H (9-20) mg/dL Creatinine 0.7 L (0.8-1.3) mg/dL Glucose 132 H (75-100) mg/dL Calcium 7.5 L (8.4-10.2) mg/dL Phosphorus 1.80 L (2.5-4.5) mg/dL Total Creatine Kinase (55-170) units/L Total Protein 6.2 L D (6.3-8.2) g/dL Albumin 2.5 L (3.9-5) g/dL Urine Creatinine (0.1-20.0) mg/dL Urine Total Protein (5-11.8) mg/dL Medications & Allergies - Medications Allergies/Adverse Reactions: Allergies No Known Allergies Allergy (Verified 01/10/19 02:20) Home Medications: Home Medications Medication Instructions Recorded Confirmed Last Taken Type Folic Acid [Folvite] 1 mg PO QDAY 01/10/19 08/14/20 Unknown History Primidone [Mysoline] 250 mg PO TID 01/10/19 08/14/20 Unknown History carBAMazepine [Carbamazepine] 200 mg PO TID 01/10/19 08/14/20 Unknown History oxyCODONE /ACETAMINOPHEN [Percocet 1 tab PO Q6H PRN #14 tablet 01/12/19 08/14/20 Unknown Rx 5/325 mg] Aspirin [Aspirin BABY CHEW TAB] 81 mg PO QDAY 08/15/20 08/15/20 Unknown History AtorvaSTATin [Lipitor] 40 mg PO QHS 08/15/20 08/15/20 Unknown History Citalopram Hydrobromide 20 mg PO QDAY 08/15/20 08/15/20 Unknown History [Citalopram HBr] Ergocalciferol [Vitamin D2] 1 cap PO QWEEK 08/15/20 08/15/20 Unknown History Folic Acid [Folvite] 1 mg PO QDAY 08/15/20 08/15/20 Unknown History Midodrine [Proamatine] 2.5 mg PO BID 08/15/20 08/15/20 Unknown History Mirtazapine 7.5 mg PO QHS 08/15/20 08/15/20 Unknown History guaiFENesin ER [Mucinex ER] 600 mg PO Q12H 08/15/20 08/15/20 Unknown History oxyCODONE /ACETAMINOPHEN [Percocet 1 tab PO Q6HR PRN 08/15/20 08/15/20 Unknown History 5/325] tiZANidine [Zanaflex 4mg TAB] 4 mg PO BID 08/15/20 08/15/20 Unknown History Active Medications: Generic Name Dose Route Start Last Admin Trade Name Freq PRN Reason Stop Dose Admin Carbamazepine 200 mg 08/15/20 14:00 08/16/20 09:13 Carbamazepine 200 Mg Tab PO Not Given TID [facility] Folic Acid 1 mg 08/15/20 10:00 08/16/20 09:41 Folic Acid 1 Mg Tab PO Not Given QDAY [facility] Heparin Sodium (Porcine) 5,000 unit 08/14/20 22:00 08/16/20 09:13 Heparin 5,000 Unit/1 Ml Vial SUB-Q Not Given Q8HR [facility] Vancomycin HCl 1,250 mg/ 275 mls @ 166.667 mls/hr 08/15/20 17:00 08/15/20 17:36 Sodium Chloride IV 166.667 mls/hr Q24H [facility] Administration Norepinephrine 4 mg in 250 mls @ 7.5 mls/hr 08/15/20 02:00 08/16/20 07:20 Levophed Drip 4 Mg/Ns 250 Ml IV 10 mcg/min TITR [facility] 37.5 mls/hr Administration Protocol 2 MCG/MIN Cefepime HCl 2 gm in 100 mls @ 200 mls/hr 08/15/20 10:00 08/16/20 09:39 Cefepime/Ns 2 Gm/100 Ml IV 200 mls/hr Q8H [facility] Administration Protocol Sodium Chloride 1,000 mls @ 125 mls/hr 08/15/20 11:00 08/16/20 09:39 Nacl 0.45% 1000 Ml IV 125 mls/hr DIRECT [facility] Administration Magnesium Hydroxide 30 ml 08/14/20 15:42 Magnesium Hydroxide (Mom) Oral Liqd Udc PO Q4H PRN Constipation Midodrine 2.5 mg 08/16/20 08:00 08/16/20 09:13 Midodrine 2.5 Mg Tab PO Not Given TID@0800,1200,1600 [facility] Morphine Sulfate 2 mg 08/15/20 17:57 08/16/20 01:23 Morphine 2 Mg/1 Ml Inj IV 2 mg Q6H PRN Administration Pain, Moderate (4-6) Ondansetron HCl 4 mg 08/14/20 15:42 08/16/20 01:23 Ondansetron 4 Mg/2 Ml Inj IV 4 mg Q8H PRN Administration Nausea And Vomiting Primidone 250 mg 08/15/20 14:00 08/16/20 09:13 Primidone 250 Mg Tab PO Not Given TID [facility] Sodium Chloride 10 ml 08/14/20 22:00 08/16/20 09:40 Sodium Chloride 0.9% 10 Ml Flush Syringe IV 10 ml BID [facility] Administration Sodium Chloride 10 ml 08/14/20 15:42 Sodium Chloride 0.9% 10 Ml Flush Syringe IV PRN PRN LINE FLUSH HEART Score - HEART Score Troponin: Troponin T 0.034 ng/mL (0.00-0.029) H 08/14/20 11:02
--- NOTE | 2020-08-16 11:59 | Progress Note ---
Assessment and Plan (1) Septic shock (2) Acute hypernatremia (3) Acute renal failure (4) UTI (urinary tract infection) (5) Acidosis FAZAL secondary to prerenla azotemia, Cr is trending down with IVF Continue 1/2 NS for volume repletion and hypernatremia Start bicarb tabs for acidosis Replace Phos urine lytes ordered strict I&O daily weight avoid nephrotoxins Renally dose emds Subjective Date of service: 08/16/20 Interval history: Making urine. In IMCU. Objective - Exam Narrative Exam: General appearance: cachectic, other (Chronically ill looking) - EENT Eyes: Present: PERRL, EOM intact - Neck Neck: Present: supple, normal ROM - Respiratory Respiratory effort: normal Respiratory: bilateral: diminished, rhonchi, negative: rales, wheezing - Cardiovascular Rhythm: regular Heart Sounds: Present: S1 & S2 - Extremities Extremities: no ischemia, No edema, abnormal (Chronic multiple wounds) - Abdominal General gastrointestinal: soft, non-tender, non-distended, normal bowel sounds - Integumentary Integumentary: Present: clear, warm - Psychiatric Psychiatric: appropriate mood/affect, cooperative - Neurologic Neurologic: CNII-XII intact, moves all extremities - Vital Signs Vital signs: Vital Signs - 12hr 08/16/20 08/16/20 08/16/20 00:00 00:14 00:16 Pulse Rate 49 L 47 L 48 L Respiratory 20 13 15 Rate Blood Pressure 75/28 121/61 92/34 O2 Sat by Pulse 100 100 100 Oximetry 08/16/20 08/16/20 08/16/20 00:30 00:46 01:00 Pulse Rate 62 53 L 76 Respiratory 15 18 12 Rate Blood Pressure 92/34 142/63 100/53 O2 Sat by Pulse 100 100 100 Oximetry 08/16/20 08/16/20 08/16/20 01:16 01:30 01:46 Pulse Rate 54 L 53 L 62 Respiratory 12 10 L 14 Rate Blood Pressure 142/60 141/66 139/61 O2 Sat by Pulse 100 95 Oximetry 08/16/20 08/16/20 08/16/20 02:00 02:16 02:30 Pulse Rate 92 H 53 L 53 L Respiratory 26 H 13 16 Rate Blood Pressure 153/89 134/67 141/62 O2 Sat by Pulse 100 100 Oximetry 08/16/20 08/16/20 08/16/20 02:46 03:00 03:15 Pulse Rate 53 L 54 L 53 L Respiratory 15 12 17 Rate Blood Pressure 134/59 139/62 148/64 O2 Sat by Pulse 98 100 99 Oximetry 08/16/20 08/16/20 08/16/20 03:30 03:46 04:00 Pulse Rate 63 57 L 58 L Respiratory 13 13 13 Rate Blood Pressure 153/73 135/53 135/53 O2 Sat by Pulse 100 100 Oximetry 08/16/20 08/16/20 08/16/20 04:16 04:30 04:46 Pulse Rate 50 L 53 L 57 L Respiratory 12 13 11 L Rate Blood Pressure 133/61 141/58 139/61 O2 Sat by Pulse 100 100 100 Oximetry 08/16/20 08/16/20 08/16/20 05:00 05:15 05:30 Pulse Rate 58 L 59 L 60 Respiratory 14 12 17 Rate Blood Pressure 131/63 139/66 133/59 O2 Sat by Pulse 98 100 100 Oximetry 08/16/20 08/16/20 08/16/20 05:46 06:00 06:16 Pulse Rate 52 L 55 L 56 L Respiratory 9 L 18 12 Rate Blood Pressure 133/59 133/62 O2 Sat by Pulse 100 100 Oximetry 08/16/20 08/16/20 06:30 06:46 Pulse Rate 56 L 53 L Respiratory 12 16 Rate Blood Pressure 128/58 125/56 O2 Sat by Pulse 100 Oximetry - Lab 08/16/20 05:20 08/16/20 05:20 Most recent lab results Calcium 7.5 mg/dL (8.4-10.2) L 08/16/20 05:20 Phosphorus 1.80 mg/dL (2.5-4.5) L 08/16/20 05:20 Magnesium 1.80 mg/dL (1.7-2.3) 08/16/20 05:20 Urine Creatinine 35.9 mg/dL (0.1-20.0) H 08/15/20 22:12 Urine Creatinine 36.0 mg/dL (0.1-20.0) H 08/15/20 22:12 Urine Sodium 77 mmol/L 08/15/20 22:12 Urine Total Protein 115 mg/dL (5-11.8) H 08/15/20 22:12 Medications & Allergies - Medications Allergies/Adverse Reactions: Allergies No Known Allergies Allergy (Verified 01/10/19 02:20) Home Medications: Home Medications Medication Instructions Recorded Confirmed Last Taken Type Folic Acid [Folvite] 1 mg PO QDAY 01/10/19 08/14/20 Unknown History Primidone [Mysoline] 250 mg PO TID 01/10/19 08/14/20 Unknown History carBAMazepine [Carbamazepine] 200 mg PO TID 01/10/19 08/14/20 Unknown History oxyCODONE /ACETAMINOPHEN [Percocet 1 tab PO Q6H PRN #14 tablet 01/12/19 08/14/20 Unknown Rx 5/325 mg] Aspirin [Aspirin BABY CHEW TAB] 81 mg PO QDAY 08/15/20 08/15/20 Unknown History AtorvaSTATin [Lipitor] 40 mg PO QHS 08/15/20 08/15/20 Unknown History Citalopram Hydrobromide 20 mg PO QDAY 08/15/20 08/15/20 Unknown History [Citalopram HBr] Ergocalciferol [Vitamin D2] 1 cap PO QWEEK 08/15/20 08/15/20 Unknown History Folic Acid [Folvite] 1 mg PO QDAY 08/15/20 08/15/20 Unknown History Midodrine [Proamatine] 2.5 mg PO BID 08/15/20 08/15/20 Unknown History Mirtazapine 7.5 mg PO QHS 08/15/20 08/15/20 Unknown History guaiFENesin ER [Mucinex ER] 600 mg PO Q12H 08/15/20 08/15/20 Unknown History oxyCODONE /ACETAMINOPHEN [Percocet 1 tab PO Q6HR PRN 08/15/20 08/15/20 Unknown History 5/325] tiZANidine [Zanaflex 4mg TAB] 4 mg PO BID 08/15/20 08/15/20 Unknown History Active Medications: Generic Name Dose Route Start Last Admin Trade Name Freq PRN Reason Stop Dose Admin Carbamazepine 200 mg 08/15/20 14:00 08/16/20 09:13 Carbamazepine 200 Mg Tab PO Not Given TID [facility] Folic Acid 1 mg 08/15/20 10:00 08/16/20 09:41 Folic Acid 1 Mg Tab PO Not Given QDAY [facility] Heparin Sodium (Porcine) 5,000 unit 08/14/20 22:00 08/16/20 09:13 Heparin 5,000 Unit/1 Ml Vial SUB-Q Not Given Q8HR [facility] Vancomycin HCl 1,250 mg/ 275 mls @ 166.667 mls/hr 08/15/20 17:00 08/15/20 17:36 Sodium Chloride IV 166.667 mls/hr Q24H [facility] Administration Norepinephrine 4 mg in 250 mls @ 7.5 mls/hr 08/15/20 02:00 08/16/20 07:20 Levophed Drip 4 Mg/Ns 250 Ml IV 10 mcg/min TITR [facility] 37.5 mls/hr Administration Protocol 2 MCG/MIN Cefepime HCl 2 gm in 100 mls @ 200 mls/hr 08/15/20 10:00 08/16/20 09:39 Cefepime/Ns 2 Gm/100 Ml IV 200 mls/hr Q8H [facility] Administration Protocol Sodium Chloride 1,000 mls @ 125 mls/hr 08/15/20 11:00 08/16/20 09:39 Nacl 0.45% 1000 Ml IV 125 mls/hr DIRECT [facility] Administration Magnesium Hydroxide 30 ml 08/14/20 15:42 Magnesium Hydroxide (Mom) Oral Liqd Udc PO Q4H PRN Constipation Midodrine 2.5 mg 08/16/20 08:00 08/16/20 09:13 Midodrine 2.5 Mg Tab PO Not Given TID@0800,1200,1600 [facility] Morphine Sulfate 2 mg 08/15/20 17:57 08/16/20 01:23 Morphine 2 Mg/1 Ml Inj IV 2 mg Q6H PRN Administration Pain, Moderate (4-6) Ondansetron HCl 4 mg 08/14/20 15:42 08/16/20 01:23 Ondansetron 4 Mg/2 Ml Inj IV 4 mg Q8H PRN Administration Nausea And Vomiting Primidone 250 mg 08/15/20 14:00 08/16/20 09:13 Primidone 250 Mg Tab PO Not Given TID [facility] Sodium Chloride 10 ml 08/14/20 22:00 08/16/20 09:40 Sodium Chloride 0.9% 10 Ml Flush Syringe IV 10 ml BID [facility] Administration Sodium Chloride 10 ml 08/14/20 15:42 Sodium Chloride 0.9% 10 Ml Flush Syringe IV PRN PRN LINE FLUSH
--- NOTE | 2020-08-16 16:39 | Progress Note ---
Hospitalist Physical - Constitutional Vitals: Temp Pulse Resp BP Pulse Ox 97.8 F 53 L 16 125/56 100 08/14/20 19:00 08/16/20 06:46 08/16/20 06:46 08/16/20 06:46 08/16/20 06:46 General appearance: Present: mild distress, cachectic, other (Chronically ill looking) HEART Score - HEART Score Troponin: Troponin T 0.034 ng/mL (0.00-0.029) H 08/14/20 11:02 Results - Labs CBC & Chem 7: 08/16/20 05:20 08/16/20 05:20 Labs: Laboratory Last Values WBC 23.6 K/mm3 (4.5-11.0) H 08/16/20 05:20 RBC 3.07 M/mm3 (3.65-5.03) L 08/16/20 05:20 Hgb 9.2 gm/dl (11.8-15.2) L 08/16/20 05:20 Hct 29.3 % (35.5-45.6) L 08/16/20 05:20 MCV 95 fl (84-94) H 08/16/20 05:20 MCH 30 pg (28-32) 08/16/20 05:20 MCHC 32 % (32-34) 08/16/20 05:20 RDW 14.2 % (13.2-15.2) 08/16/20 05:20 Plt Count 353 K/mm3 (140-440) 08/16/20 05:20 Lymph % (Auto) 4.8 % (13.4-35.0) L 08/16/20 05:20 [place] % (Auto) 5.7 % (0.0-7.3) 08/16/20 05:20 Eos % (Auto) 0.0 % (0.0-4.3) 08/16/20 05:20 Baso % (Auto) 0.2 % (0.0-1.8) 08/16/20 05:20 Lymph # (Auto) 1.1 K/mm3 (1.2-5.4) L 08/16/20 05:20 [place] # (Auto) 1.3 K/mm3 (0.0-0.8) H 08/16/20 05:20 Eos # (Auto) 0.0 K/mm3 (0.0-0.4) 08/16/20 05:20 Baso # (Auto) 0.0 K/mm3 (0.0-0.1) 08/16/20 05:20 Add Manual Diff Complete 08/15/20 14:22 Total Counted 100 08/15/20 14:22 Seg Neutrophils % 89.3 % (40.0-70.0) H 08/16/20 05:20 Seg Neuts % (Manual) 85.0 % (40.0-70.0) H 08/15/20 14:22 Band Neutrophils % 5.0 % 08/15/20 14:22 Lymphocytes % (Manual) 3.0 % (13.4-35.0) L 08/15/20 14:22 Monocytes % (Manual) 6.0 % (0.0-7.3) 08/15/20 14:22 Metamyelocytes % 1.0 % 08/15/20 14:22 Nucleated RBC % Not Reportable 08/15/20 14:22 Seg Neutrophils # 21.1 K/mm3 (1.8-7.7) H 08/16/20 05:20 Seg Neutrophils # Man 18.7 K/mm3 (1.8-7.7) H 08/15/20 14:22 Band Neutrophils # 1.1 K/mm3 08/15/20 14:22 Lymphocytes # (Manual) 0.7 K/mm3 (1.2-5.4) L 08/15/20 14:22 Abs React Lymphs (Man) 0.0 K/mm3 08/15/20 14:22 Monocytes # (Manual) 1.3 K/mm3 (0.0-0.8) H 08/15/20 14:22 Eosinophils # (Manual) 0.0 K/mm3 (0.0-0.4) 08/15/20 14:22 Basophils # (Manual) 0.0 K/mm3 (0.0-0.1) 08/15/20 14:22 Metamyelocytes # 0.2 K/mm3 08/15/20 14:22 Myelocytes # 0.0 K/mm3 08/15/20 14:22 Promyelocytes # 0.0 K/mm3 08/15/20 14:22 Blast Cells # 0.0 K/mm3 08/15/20 14:22 WBC Morphology Not Reportable 08/15/20 14:22 Hypersegmented Neuts Not Reportable 08/15/20 14:22 Hyposegmented Neuts Not Reportable 08/15/20 14:22 Hypogranular Neuts Not Reportable 08/15/20 14:22 Smudge Cells Not Reportable 08/15/20 14:22 Toxic Granulation Not Reportable 08/15/20 14:22 Toxic Vacuolation Not Reportable 08/15/20 14:22 Dohle Bodies Not Reportable 08/15/20 14:22 Pelger-Huet Anomaly Not Reportable 08/15/20 14:22 Kassi Rods Not Reportable 08/15/20 14:22 Platelet Estimate Consistent w auto 08/15/20 14:22 Clumped Platelets Not Reportable 08/15/20 14:22 Plt Clumps, EDTA Not Reportable 08/15/20 14:22 Large Platelets Rare 08/15/20 14:22 Giant Platelets Not Reportable 08/15/20 14:22 Platelet Satelliting Not Reportable 08/15/20 14:22 Plt Morphology Comment Not Reportable 08/15/20 14:22 RBC Morphology Not Reportable 08/15/20 14:22 Dimorphic RBCs Not Reportable 08/15/20 14:22 Polychromasia Not Reportable 08/15/20 14:22 Hypochromasia Not Reportable 08/15/20 14:22 Poikilocytosis Not Reportable 08/15/20 14:22 Anisocytosis Not Reportable 08/15/20 14:22 Microcytosis Not Reportable 08/15/20 14:22 Macrocytosis Not Reportable 08/15/20 14:22 Spherocytes Not Reportable 08/15/20 14:22 Pappenheimer Bodies Not Reportable 08/15/20 14:22 Sickle Cells Not Reportable 08/15/20 14:22 Target Cells Not Reportable 08/15/20 14:22 Tear Drop Cells Not Reportable 08/15/20 14:22 Ovalocytes Not Reportable 08/15/20 14:22 Helmet Cells Not Reportable 08/15/20 14:22 [place] Bodies Not Reportable 08/15/20 14:22 [place] Rings Not Reportable 08/15/20 14:22 [place] Cells Not Reportable 08/15/20 14:22 Bite Cells Not Reportable 08/15/20 14:22 Crenated Cell Not Reportable 08/15/20 14:22 Elliptocytes Not Reportable 08/15/20 14:22 Acanthocytes (Spur) Not Reportable 08/15/20 14:22 Rouleaux Not Reportable 08/15/20 14:22 Hemoglobin C Crystals Not Reportable 08/15/20 14:22 Schistocytes Not Reportable 08/15/20 14:22 Malaria parasites Not Reportable 08/15/20 14:22 Richard Bodies Not Reportable 08/15/20 14:22 Hem Pathologist Commnt No 08/15/20 14:22 PT 15.4 Sec. (12.2-14.9) H 08/15/20 05:37 INR 1.24 (0.87-1.13) H 08/15/20 05:37 Sodium 154 mmol/L (137-145) H 08/16/20 05:20 Potassium 3.5 mmol/L (3.6-5.0) L 08/16/20 05:20 Chloride 122.7 mmol/L (98-107) H 08/16/20 05:20 Carbon Dioxide 16 mmol/L (22-30) L 08/16/20 05:20 Anion Gap 19 mmol/L 08/16/20 05:20 BUN 32 mg/dL (9-20) H 08/16/20 05:20 Creatinine 0.7 mg/dL (0.8-1.3) L 08/16/20 05:20 Estimated GFR > 60 ml/min 08/16/20 05:20 BUN/Creatinine Ratio 46 % 08/16/20 05:20 Glucose 132 mg/dL (75-100) H 08/16/20 05:20 POC Glucose 76 mg/dL (70-105) 08/16/20 00:04 Lactic Acid 1.50 mmol/L (0.7-2.0) 08/14/20 18:37 Calcium 7.5 mg/dL (8.4-10.2) L 08/16/20 05:20 Phosphorus 1.80 mg/dL (2.5-4.5) L 08/16/20 05:20 Magnesium 1.80 mg/dL (1.7-2.3) 08/16/20 05:20 Total Bilirubin < 0.20 mg/dL (0.1-1.2) 08/16/20 05:20 Direct Bilirubin < 0.2 mg/dL (0-0.2) 08/16/20 05:20 Indirect Bilirubin 0.0 mg/dL 08/16/20 05:20 AST 20 units/L (5-40) 08/16/20 05:20 ALT 11 units/L (7-56) 08/16/20 05:20 Alkaline Phosphatase 56 units/L (35-129) 08/16/20 05:20 Total Creatine Kinase 177 units/L (55-170) H 08/15/20 14:22 Troponin T 0.034 ng/mL (0.00-0.029) H 08/14/20 11:02 Total Protein 6.2 g/dL (6.3-8.2) L D 08/16/20 05:20 Albumin 2.5 g/dL (3.9-5) L 08/16/20 05:20 Albumin/Globulin Ratio 0.7 % 08/16/20 05:20 Triglycerides 370 mg/dL (2-149) H 08/14/20 11:02 Cholesterol 243 mg/dL (50-199) H 08/14/20 11:02 LDL Cholesterol Direct 130 mg/dL (50-130) 08/14/20 11:02 HDL Cholesterol 34 mg/dL (40-59) L 08/14/20 11:02 Cholesterol/HDL Ratio 7.14 % 08/14/20 11:02 Urine Color Yellow (Yellow) 08/14/20 13:25 Urine Turbidity Turbid (Clear) 08/14/20 13:25 Urine pH 5.0 (5.0-7.0) 08/14/20 13:25 Ur Specific [place] 1.020 (1.003-1.030) 08/14/20 13:25 Urine Protein 100 mg/dl mg/dL (Negative) 08/14/20 13:25 Urine Glucose (UA) Neg mg/dL (Negative) 08/14/20 13:25 Urine Ketones Tr mg/dL (Negative) 08/14/20 13:25 Urine Blood Mod (Negative) 08/14/20 13:25 Urine Nitrite Neg (Negative) 08/14/20 13:25 Urine Bilirubin Neg (Negative) 08/14/20 13:25 Urine Urobilinogen 2.0 mg/dL (<2.0) 08/14/20 13:25 Ur Leukocyte Esterase Mod (Negative) 08/14/20 13:25 Urine WBC (Auto) > 182.0 /HPF (0.0-6.0) H 08/14/20 13:25 Urine RBC (Auto) 56.0 /HPF (0.0-6.0) 08/14/20 13:25 U Epithel Cells (Auto) 2.0 /HPF (0-13.0) 08/14/20 13:25 Urine Bacteria (Auto) 3+ /HPF (Negative) 08/14/20 13:25 Urine WBC Clumps 3+ /HPF 08/14/20 13:25 Urine Mucus 2+ /HPF 08/14/20 13:25 Urine Creatinine 35.9 mg/dL (0.1-20.0) H 08/15/20 22:12 Urine Creatinine 36.0 mg/dL (0.1-20.0) H 08/15/20 22:12 Protein/Creatinin Ratio 3.20 08/15/20 22:12 Urine Sodium 77 mmol/L 08/15/20 22:12 Urine Total Protein 115 mg/dL (5-11.8) H 08/15/20 22:12 Microbiology: Microbiology 08/14/20 11:02 Peripheral/Venous Blood Culture - Preliminary NO GROWTH AFTER 48 HOURS 08/14/20 11:02 Peripheral/Venous Blood Culture - Preliminary NO GROWTH AFTER 48 HOURS Rivas/IV: Voiding Method Indwelling Catheter IV Catheter Type [Left INT / Saline Lock Antecubital] Active Medications - Current Medications Current Medications: Generic Name Dose Route Start Last Admin Trade Name Freq PRN Reason Stop Dose Admin Carbamazepine 200 mg 08/15/20 14:00 08/16/20 09:13 Carbamazepine 200 Mg Tab PO Not Given TID [facility] Folic Acid 1 mg 08/15/20 10:00 08/16/20 09:41 Folic Acid 1 Mg Tab PO Not Given QDAY [facility] Heparin Sodium (Porcine) 5,000 unit 08/14/20 22:00 08/16/20 09:13 Heparin 5,000 Unit/1 Ml Vial SUB-Q Not Given Q8HR [facility] Vancomycin HCl 1,250 mg/ 275 mls @ 166.667 mls/hr 08/15/20 17:00 08/15/20 17 :36 Sodium Chloride IV 166.667 mls/hr Q24H [facility] Administration Norepinephrine 4 mg in 250 mls @ 7.5 mls/hr 08/15/20 02:00 08/16/20 07:20 Levophed Drip 4 Mg/Ns 250 Ml IV 10 mcg/min TITR [facility] 37.5 mls/hr Administration Protocol 2 MCG/MIN Cefepime HCl 2 gm in 100 mls @ 200 mls/hr 08/15/20 10:00 08/16/20 09:39 Cefepime/Ns 2 Gm/100 Ml IV 200 mls/hr Q8H [facility] Administration Protocol Sodium Chloride 1,000 mls @ 125 mls/hr 08/15/20 11:00 08/16/20 09:39 Nacl 0.45% 1000 Ml IV 125 mls/hr DIRECT [facility] Administration Magnesium Hydroxide 30 ml 08/14/20 15:42 Magnesium Hydroxide (Mom) Oral Liqd Udc PO Q4H PRN Constipation Midodrine 2.5 mg 08/16/20 08:00 08/16/20 09:13 Midodrine 2.5 Mg Tab PO Not Given TID@0800,1200,1600 [facility] Morphine Sulfate 2 mg 08/15/20 17:57 08/16/20 01:23 Morphine 2 Mg/1 Ml Inj IV 2 mg Q6H PRN Administration Pain, Moderate (4-6) Ondansetron HCl 4 mg 08/14/20 15:42 08/16/20 01:23 Ondansetron 4 Mg/2 Ml Inj IV 4 mg Q8H PRN Administration Nausea And Vomiting Primidone 250 mg 08/15/20 14:00 08/16/20 09:13 Primidone 250 Mg Tab PO Not Given TID [facility] Sodium Chloride 10 ml 08/14/20 22:00 08/16/20 09:40 Sodium Chloride 0.9% 10 Ml Flush Syringe IV 10 ml BID [facility] Administration Sodium Chloride 10 ml 08/14/20 15:42 Sodium Chloride 0.9% 10 Ml Flush Syringe IV PRN PRN LINE FLUSH Nutrition/Malnutrition Assess - Dietary Evaluation Nutrition/Malnutrition Findings: Nutrition Notes Start: 08/15/20 14:08 Freq: Status: Active Protocol: Document 08/15/20 14:08 CW (Rec: 08/15/20 14:13 CW [email or web address]) Co-Sign 08/15/20 14:08 LP Nutrition Notes Need for Assessment generated from: MD Order Initial or Follow up Assessment Current Diagnosis Sepsis Other Pertinent Diagnosis AMS, UTI, hypotension, wound infection Current Diet regular diet Labs/Tests Na 156 BUN 50 BG 107 Pertinent Medications Levophed Height 6 ft Weight 83.915 kg [place] Body Weight (kg) 80.90 BMI 25.0 Weight Status Appropriate Subjective/Other Information MD order for diet education. Pt is on hold in ED. Per chart , no intakes recorded and pt has wounds. #1 Nutrition Diagnosis Increased nutrient needs ( specify in comment below) Comments: protein Etiology wound healing As Evidenced by Signs and Symptoms buttock and foot wound infection Is patient on ventilator? No Is Patient Ambulatory and/or Out of Bed No REE-([place]-confined to bed) [phone] Calculation Used for Recommendations [place] Additional Notes Protein needs are 1.25-1.5g/ kcal ABW (105-125g/day) Fluid needs are 1ml/kcal Nutrition Intervention Change Diet Order: continue current Goal #1 Meet at least 75% energy and protein needs Goal #2 Wound healing Anticipated Discharge Needs: Unable to determine at this time Follow-Up By: 08/19/20 Additional Comments FU for diet education needs, intakes, wounds
--- NOTE | 2020-08-16 16:40 | Progress Note ---
Assessment and Plan Assessment and plan: -- Septic shock/remains on Levophed Current Visit: Yes Status: Acute Plan to address problem: On Levophed , titrate systolic blood pressures to more than 100 econdary to underlying UTI, infected heel Treat the underlying cause, IV fluids --Leukocytosis/sepsis Current Visit: Yes Status: Acute Plan to address problem: Patient on empiric antibiotics, follow cultures -- Acute hypernatremia Current Visit: Yes Status: Acute . Plan to address problem: Possibly secondary to dehydration. Patient placed on IV fluid. Will monitor chemistry. --Acute renal failure/vasomotor nephropathy Current Visit: Yes Status: Acute Plan to address problem: Gentle hydration closely monitor renal function Avoid nephrotoxins. Renal function improving --UTI (urinary tract infection) Current Visit: Yes Status: Acute Plan to address problem: Probably the cause of hypotension, empiric antibiotics follow cultures ID evaluation if needed --Chronic superficial wound infection; Current Visit: Yes Status: Acute Plan to address problem: wound care, patient is already on IV antibiotics, follow cultures --DVT prophylaxis Current Visit: Yes Status: Acute Plan to address problem: Patient placed on subcutaneous heparin. --Full code status Current Visit: Yes Status: Acute Plan to address problem: Patient is a full code. We will closely monitor the patient and adjust the management as needed Plan of care reviewed with the patient and his nurse Critical care time 35 minutes The high probability of a clinically significant, sudden or life threatening deterioration of the [pulmonary] system(s) required my full and direct attention, intervention and personal management. The aggregate critical care time was [35 ] minutes. This time is in addition to time spent performing reported procedures but includes the following: [x] Data Review and interpretation [x] Patient assessment and monitoring of vital signs [x] Documentation [x] Medication orders and management History Interval history: I have seen and examined the patient at the bedside Patient's chart and medications reviewed Patient looks critically ill, septic shock on Levophed Alert and awake minimally communicative Vital signs reviewed Hospitalist Physical - Constitutional Vitals: Temp Pulse Resp BP Pulse Ox 97.8 F 53 L 16 125/56 100 08/14/20 19:00 08/16/20 06:46 08/16/20 06:46 08/16/20 06:46 08/16/20 06:46 General appearance: Present: mild distress, cachectic, other (Chronically ill looking) - EENT Eyes: Present: PERRL, EOM intact - Neck Neck: Present: supple, normal ROM - Respiratory Respiratory effort: normal Respiratory: bilateral: diminished, negative: rales, rhonchi, wheezing - Cardiovascular Rhythm: regular Heart Sounds: Present: S1 & S2 - Extremities Extremities: no ischemia, No edema, abnormal (Left foot and buttock wound) - Abdominal General gastrointestinal: soft, non-tender, non-distended, normal bowel sounds - Integumentary Integumentary: Present: clear, warm - Psychiatric Psychiatric: other (Minimally communicative) - Neurologic Neurologic: moves all extremities HEART Score - HEART Score Troponin: Troponin T 0.034 ng/mL (0.00-0.029) H 08/14/20 11:02 Results - Labs CBC & Chem 7: 08/16/20 05:20 08/16/20 05:20 Labs: Laboratory Last Values WBC 23.6 K/mm3 (4.5-11.0) H 08/16/20 05:20 RBC 3.07 M/mm3 (3.65-5.03) L 08/16/20 05:20 Hgb 9.2 gm/dl (11.8-15.2) L 08/16/20 05:20 Hct 29.3 % (35.5-45.6) L 08/16/20 05:20 MCV 95 fl (84-94) H 08/16/20 05:20 MCH 30 pg (28-32) 08/16/20 05:20 MCHC 32 % (32-34) 08/16/20 05:20 RDW 14.2 % (13.2-15.2) 08/16/20 05:20 Plt Count 353 K/mm3 (140-440) 08/16/20 05:20 Lymph % (Auto) 4.8 % (13.4-35.0) L 08/16/20 05:20 [place] % (Auto) 5.7 % (0.0-7.3) 08/16/20 05:20 Eos % (Auto) 0.0 % (0.0-4.3) 08/16/20 05:20 Baso % (Auto) 0.2 % (0.0-1.8) 08/16/20 05:20 Lymph # (Auto) 1.1 K/mm3 (1.2-5.4) L 08/16/20 05:20 [place] # (Auto) 1.3 K/mm3 (0.0-0.8) H 08/16/20 05:20 Eos # (Auto) 0.0 K/mm3 (0.0-0.4) 08/16/20 05:20 Baso # (Auto) 0.0 K/mm3 (0.0-0.1) 08/16/20 05:20 Add Manual Diff Complete 08/15/20 14:22 Total Counted 100 08/15/20 14:22 Seg Neutrophils % 89.3 % (40.0-70.0) H 08/16/20 05:20 Seg Neuts % (Manual) 85.0 % (40.0-70.0) H 08/15/20 14:22 Band Neutrophils % 5.0 % 08/15/20 14:22 Lymphocytes % (Manual) 3.0 % (13.4-35.0) L 08/15/20 14:22 Monocytes % (Manual) 6.0 % (0.0-7.3) 08/15/20 14:22 Metamyelocytes % 1.0 % 08/15/20 14:22 Nucleated RBC % Not Reportable 08/15/20 14:22 Seg Neutrophils # 21.1 K/mm3 (1.8-7.7) H 08/16/20 05:20 Seg Neutrophils # Man 18.7 K/mm3 (1.8-7.7) H 08/15/20 14:22 Band Neutrophils # 1.1 K/mm3 08/15/20 14:22 Lymphocytes # (Manual) 0.7 K/mm3 (1.2-5.4) L 08/15/20 14:22 Abs React Lymphs (Man) 0.0 K/mm3 08/15/20 14:22 Monocytes # (Manual) 1.3 K/mm3 (0.0-0.8) H 08/15/20 14:22 Eosinophils # (Manual) 0.0 K/mm3 (0.0-0.4) 08/15/20 14:22 Basophils # (Manual) 0.0 K/mm3 (0.0-0.1) 08/15/20 14:22 Metamyelocytes # 0.2 K/mm3 08/15/20 14:22 Myelocytes # 0.0 K/mm3 08/15/20 14:22 Promyelocytes # 0.0 K/mm3 08/15/20 14:22 Blast Cells # 0.0 K/mm3 08/15/20 14:22 WBC Morphology Not Reportable 08/15/20 14:22 Hypersegmented Neuts Not Reportable 08/15/20 14:22 Hyposegmented Neuts Not Reportable 08/15/20 14:22 Hypogranular Neuts Not Reportable 08/15/20 14:22 Smudge Cells Not Reportable 08/15/20 14:22 Toxic Granulation Not Reportable 08/15/20 14:22 Toxic Vacuolation Not Reportable 08/15/20 14:22 Dohle Bodies Not Reportable 08/15/20 14:22 Pelger-Huet Anomaly Not Reportable 08/15/20 14:22 Kassi Rods Not Reportable 08/15/20 14:22 Platelet Estimate Consistent w auto 08/15/20 14:22 Clumped Platelets Not Reportable 08/15/20 14:22 Plt Clumps, EDTA Not Reportable 08/15/20 14:22 Large Platelets Rare 08/15/20 14:22 Giant Platelets Not Reportable 08/15/20 14:22 Platelet Satelliting Not Reportable 08/15/20 14:22 Plt Morphology Comment Not Reportable 08/15/20 14:22 RBC Morphology Not Reportable 08/15/20 14:22 Dimorphic RBCs Not Reportable 08/15/20 14:22 Polychromasia Not Reportable 08/15/20 14:22 Hypochromasia Not Reportable 08/15/20 14:22 Poikilocytosis Not Reportable 08/15/20 14:22 Anisocytosis Not Reportable 08/15/20 14:22 Microcytosis Not Reportable 08/15/20 14:22 Macrocytosis Not Reportable 08/15/20 14:22 Spherocytes Not Reportable 08/15/20 14:22 Pappenheimer Bodies Not Reportable 08/15/20 14:22 Sickle Cells Not Reportable 08/15/20 14:22 Target Cells Not Reportable 08/15/20 14:22 Tear Drop Cells Not Reportable 08/15/20 14:22 Ovalocytes Not Reportable 08/15/20 14:22 Helmet Cells Not Reportable 08/15/20 14:22 [place] Bodies Not Reportable 08/15/20 14:22 [place] Rings Not Reportable 08/15/20 14:22 [place] Cells Not Reportable 08/15/20 14:22 Bite Cells Not Reportable 08/15/20 14:22 Crenated Cell Not Reportable 08/15/20 14:22 Elliptocytes Not Reportable 08/15/20 14:22 Acanthocytes (Spur) Not Reportable 08/15/20 14:22 Rouleaux Not Reportable 08/15/20 14:22 Hemoglobin C Crystals Not Reportable 08/15/20 14:22 Schistocytes Not Reportable 08/15/20 14:22 Malaria parasites Not Reportable 08/15/20 14:22 Richard Bodies Not Reportable 08/15/20 14:22 Hem Pathologist Commnt No 08/15/20 14:22 PT 15.4 Sec. (12.2-14.9) H 08/15/20 05:37 INR 1.24 (0.87-1.13) H 08/15/20 05:37 Sodium 154 mmol/L (137-145) H 08/16/20 05:20 Potassium 3.5 mmol/L (3.6-5.0) L 08/16/20 05:20 Chloride 122.7 mmol/L (98-107) H 08/16/20 05:20 Carbon Dioxide 16 mmol/L (22-30) L 08/16/20 05:20 Anion Gap 19 mmol/L 08/16/20 05:20 BUN 32 mg/dL (9-20) H 08/16/20 05:20 Creatinine 0.7 mg/dL (0.8-1.3) L 08/16/20 05:20 Estimated GFR > 60 ml/min 08/16/20 05:20 BUN/Creatinine Ratio 46 % 08/16/20 05:20 Glucose 132 mg/dL (75-100) H 08/16/20 05:20 POC Glucose 76 mg/dL (70-105) 08/16/20 00:04 Lactic Acid 1.50 mmol/L (0.7-2.0) 08/14/20 18:37 Calcium 7.5 mg/dL (8.4-10.2) L 08/16/20 05:20 Phosphorus 1.80 mg/dL (2.5-4.5) L 08/16/20 05:20 Magnesium 1.80 mg/dL (1.7-2.3) 08/16/20 05:20 Total Bilirubin < 0.20 mg/dL (0.1-1.2) 08/16/20 05:20 Direct Bilirubin < 0.2 mg/dL (0-0.2) 08/16/20 05:20 Indirect Bilirubin 0.0 mg/dL 08/16/20 05:20 AST 20 units/L (5-40) 08/16/20 05:20 ALT 11 units/L (7-56) 08/16/20 05:20 Alkaline Phosphatase 56 units/L (35-129) 08/16/20 05:20 Total Creatine Kinase 177 units/L (55-170) H 08/15/20 14:22 Troponin T 0.034 ng/mL (0.00-0.029) H 08/14/20 11:02 Total Protein 6.2 g/dL (6.3-8.2) L D 08/16/20 05:20 Albumin 2.5 g/dL (3.9-5) L 08/16/20 05:20 Albumin/Globulin Ratio 0.7 % 08/16/20 05:20 Triglycerides 370 mg/dL (2-149) H 08/14/20 11:02 Cholesterol 243 mg/dL (50-199) H 08/14/20 11:02 LDL Cholesterol Direct 130 mg/dL (50-130) 08/14/20 11:02 HDL Cholesterol 34 mg/dL (40-59) L 08/14/20 11:02 Cholesterol/HDL Ratio 7.14 % 08/14/20 11:02 Urine Color Yellow (Yellow) 08/14/20 13:25 Urine Turbidity Turbid (Clear) 08/14/20 13:25 Urine pH 5.0 (5.0-7.0) 08/14/20 13:25 Ur Specific [place] 1.020 (1.003-1.030) 08/14/20 13:25 Urine Protein 100 mg/dl mg/dL (Negative) 08/14/20 13:25 Urine Glucose (UA) Neg mg/dL (Negative) 08/14/20 13:25 Urine Ketones Tr mg/dL (Negative) 08/14/20 13:25 Urine Blood Mod (Negative) 08/14/20 13:25 Urine Nitrite Neg (Negative) 08/14/20 13:25 Urine Bilirubin Neg (Negative) 08/14/20 13:25 Urine Urobilinogen 2.0 mg/dL (<2.0) 08/14/20 13:25 Ur Leukocyte Esterase Mod (Negative) 08/14/20 13:25 Urine WBC (Auto) > 182.0 /HPF (0.0-6.0) H 08/14/20 13:25 Urine RBC (Auto) 56.0 /HPF (0.0-6.0) 08/14/20 13:25 U Epithel Cells (Auto) 2.0 /HPF (0-13.0) 08/14/20 13:25 Urine Bacteria (Auto) 3+ /HPF (Negative) 08/14/20 13:25 Urine WBC Clumps 3+ /HPF 08/14/20 13:25 Urine Mucus 2+ /HPF 08/14/20 13:25 Urine Creatinine 35.9 mg/dL (0.1-20.0) H 08/15/20 22:12 Urine Creatinine 36.0 mg/dL (0.1-20.0) H 08/15/20 22:12 Protein/Creatinin Ratio 3.20 08/15/20 22:12 Urine Sodium 77 mmol/L 08/15/20 22:12 Urine Total Protein 115 mg/dL (5-11.8) H 08/15/20 22:12 Microbiology: Microbiology 08/14/20 11:02 Peripheral/Venous Blood Culture - Preliminary NO GROWTH AFTER 48 HOURS 08/14/20 11:02 Peripheral/Venous Blood Culture - Preliminary NO GROWTH AFTER 48 HOURS Rivas/IV: Voiding Method Indwelling Catheter IV Catheter Type [Left INT / Saline Lock Antecubital] Active Medications - Current Medications Current Medications: Generic Name Dose Route Start Last Admin Trade Name Freq PRN Reason Stop Dose Admin Carbamazepine 200 mg 08/15/20 14:00 08/16/20 09:13 Carbamazepine 200 Mg Tab PO Not Given TID [facility] Folic Acid 1 mg 08/15/20 10:00 08/16/20 09:41 Folic Acid 1 Mg Tab PO Not Given QDAY [facility] Heparin Sodium (Porcine) 5,000 unit 08/14/20 22:00 08/16/20 09:13 Heparin 5,000 Unit/1 Ml Vial SUB-Q Not Given Q8HR [facility] Vancomycin HCl 1,250 mg/ 275 mls @ 166.667 mls/hr 08/15/20 17:00 08/15/20 17:36 Sodium Chloride IV 166.667 mls/hr Q24H [facility] Administration Norepinephrine 4 mg in 250 mls @ 7.5 mls/hr 08/15/20 02:00 08/16/20 07:20 Levophed Drip 4 Mg/Ns 250 Ml IV 10 mcg/min TITR [facility] 37.5 mls/hr Administration Protocol 2 MCG/MIN Cefepime HCl 2 gm in 100 mls @ 200 mls/hr 08/15/20 10:00 08/16/20 09:39 Cefepime/Ns 2 Gm/100 Ml IV 200 mls/hr Q8H [facility] Administration Protocol Sodium Chloride 1,000 mls @ 125 mls/hr 08/15/20 11:00 08/16/20 09:39 Nacl 0.45% 1000 Ml IV 125 mls/hr DIRECT [facility] Administration Magnesium Hydroxide 30 ml 08/14/20 15:42 Magnesium Hydroxide (Mom) Oral Liqd Udc PO Q4H PRN Constipation Midodrine 2.5 mg 08/16/20 08:00 08/16/20 09:13 Midodrine 2.5 Mg Tab PO Not Given TID@0800,1200,1600 [facility] Morphine Sulfate 2 mg 08/15/20 17:57 08/16/20 01:23 Morphine 2 Mg/1 Ml Inj IV 2 mg Q6H PRN Administration Pain, Moderate (4-6) Ondansetron HCl 4 mg 08/14/20 15:42 08/16/20 01:23 Ondansetron 4 Mg/2 Ml Inj IV 4 mg Q8H PRN Administration Nausea And Vomiting Primidone 250 mg 08/15/20 14:00 08/16/20 09:13 Primidone 250 Mg Tab PO Not Given TID [facility] Sodium Chloride 10 ml 08/14/20 22:00 08/16/20 09:40 Sodium Chloride 0.9% 10 Ml Flush Syringe IV 10 ml BID [facility] Administration Sodium Chloride 10 ml 08/14/20 15:42 Sodium Chloride 0.9% 10 Ml Flush Syringe IV PRN PRN LINE FLUSH Nutrition/Malnutrition Assess - Dietary Evaluation Nutrition/Malnutrition Findings: Nutrition Notes Start: 08/15/20 14:08 Freq: Status: Active Protocol: Document 08/15/20 14:08 CW (Rec: 08/15/20 14:13 CW [email or web address]) Co-Sign 08/15/20 14:08 LP Nutrition Notes Need for Assessment generated from: MD Order Initial or Follow up Assessment Current Diagnosis Sepsis Other Pertinent Diagnosis AMS, UTI, hypotension, wound infection Current Diet regular diet Labs/Tests Na 156 BUN 50 BG 107 Pertinent Medications Levophed Height 6 ft Weight 83.915 kg [place] Body Weight (kg) 80.90 BMI 25.0 Weight Status Appropriate Subjective/Other Information MD order for diet education. Pt is on hold in ED. Per chart , no intakes recorded and pt has wounds. #1 Nutrition Diagnosis Increased nutrient needs ( specify in comment below) Comments: protein Etiology wound healing As Evidenced by Signs and Symptoms buttock and foot wound infection Is patient on ventilator? No Is Patient Ambulatory and/or Out of Bed No REE-([facility]-confined to bed) [phone] Calculation Used for Recommendations [facility] Additional Notes Protein needs are 1.25-1.5g/ kcal ABW (105-125g/day) Fluid needs are 1ml/kcal Nutrition Intervention Change Diet Order: continue current Goal #1 Meet at least 75% energy and protein needs Goal #2 Wound healing Anticipated Discharge Needs: Unable to determine at this time Follow-Up By: 08/19/20 Additional Comments FU for diet education needs, intakes, wounds
[2020-08-16] MEDS: SODIUM PHOSPHATE 30 MMOL in SODIUM CHLORIDE 0.9% 500 ML 500 ML IV ONE ×2 (17:33→18:57)
[2020-08-16] MEDS ORDERED: POTASSIUM PHOSPHATE 40 MMOL in SODIUM CHLORIDE 0.9% 500 ML 500 ML IV ONE (18:00)
[2020-08-16] MEDS: VANCOMYCIN 1,250 MG in SODIUM CHLORIDE 0.9% 250ML 250 ML IV SCH (18:57)
[2020-08-16] MEDS: SODIUM BICARBONATE 650 MG TAB PO SCH (22:25)
[2020-08-17 05:48] LABS: Hematocrit 29.1 % (35.5-45.6); Hemoglobin 9.2 gm/dl (11.8-15.2); Mean Corpuscular HGB Conc 32 % (32-34); Mean Corpuscular Volume 93 fl (84-94); Platelet Count 277 K/mm3 (140-440); Red Blood Count 3.12 M/mm3 (3.65-5.03); Red Cell Distribution Width 13.9 % (13.2-15.2)
[2020-08-17 06:07] LABS: Blood Urea Nitrogen 17 mg/dL (9-20); Calcium 7.1 mg/dL (8.4-10.2); Hemolysis Index 7
[2020-08-17 06:13] LABS: BUN/Creatinine Ratio 28
[2020-08-17] MEDS: CEFEPIME/NS 2 GM/100 ML 2 GM/100 ML BAG IV SCH ×4 (07:10→20:03)
[2020-08-17 07:26] LABS: Anisocytosis 1+; Platelet Estimate Consistent w Auto; Total Cells Counted 100
[2020-08-17] MEDS ORDERED: LACTATED RINGERS 1,000 ML IV ONE ×2 (08:23)
--- NOTE | 2020-08-17 08:23 | Progress Note ---
Assessment and Plan 75 y/o male with hypotension and electrolyte imbalances with acute renal failure. 08/17/20: Will order some boluses of LR and discuss with nursing goal MAPS for adequate organ perfusion. abx therapy per primary. CCT 31 minutes. 1. Wean Vasopressors for MAPs> 65 2. cOntinue abx therapy for now. Follow up cultures 3. Follow up renal recs. Really need bolus fluids to get patient off of pressors and then would like to use maintenance therapy if still needed 4. Nutrition consult 5. Guarded prognosis CCT 31 minutes. 08/15/20 Per patient he has not been eating and drinking like he should so likely volume deplete. Would ask that bolus fluids be used to try to wean patient of vasopressor as quickly as possible and then use maintenance therapy to correct electrolyte abnormalities. Appears to be septic as well from a urinary source. Will change abx therapy to something more broad spectrum Follow up blood and urine cultures. CCT 31 minutes. Subjective Date of service: 08/17/20 Interval history: No acute events. Now up to 10 of levophed but most MAPs documented have been above 65. No bolus fluids ordered. Objective - Constitutional Vitals: Vital Signs - 12hr 08/16/20 08/16/20 08/16/20 20:30 20:45 20:52 Pulse Rate 58 L 49 L 49 L Respiratory 14 11 L 11 L Rate Blood Pressure 102/50 110/45 110/45 O2 Sat by Pulse 100 100 100 Oximetry 08/16/20 08/16/20 08/16/20 21:00 21:15 21:30 Pulse Rate 50 L 57 L 68 Respiratory 11 L 11 L 10 L Rate Blood Pressure 114/46 122/52 106/59 O2 Sat by Pulse 99 92 Oximetry 08/16/20 08/16/20 08/16/20 21:45 22:00 22:15 Pulse Rate 51 L 64 60 Respiratory 11 L 11 L 13 Rate Blood Pressure 117/52 100/47 103/43 O2 Sat by Pulse 98 95 100 Oximetry 08/16/20 08/16/20 08/16/20 22:30 22:46 23:00 Pulse Rate 97 H 64 54 L Respiratory 14 15 14 Rate Blood Pressure 100/47 101/48 104/44 O2 Sat by Pulse 98 99 91 Oximetry 08/16/20 08/16/20 08/16/20 23:15 23:30 23:46 Pulse Rate 65 63 56 L Respiratory 13 11 L 12 Rate Blood Pressure 97/45 99/39 104/48 O2 Sat by Pulse 99 100 100 Oximetry 08/17/20 08/17/20 08/17/20 00:00 00:15 00:30 Pulse Rate 60 59 L 62 Respiratory 13 15 10 L Rate Blood Pressure 113/48 110/46 112/51 O2 Sat by Pulse 100 99 100 Oximetry 08/17/20 08/17/20 08/17/20 00:45 01:00 01:15 Pulse Rate 69 59 L 63 Respiratory 11 L 13 11 L Rate Blood Pressure 112/51 117/50 116/52 O2 Sat by Pulse 98 100 100 Oximetry 08/17/20 08/17/20 08/17/20 01:30 01:45 02:00 Pulse Rate 64 65 65 Respiratory 12 13 13 Rate Blood Pressure 114/48 110/51 113/49 O2 Sat by Pulse 98 100 100 Oximetry 08/17/20 08/17/20 08/17/20 02:16 02:30 02:46 Pulse Rate 64 60 62 Respiratory 15 15 16 Rate Blood Pressure 102/45 102/44 97/73 O2 Sat by Pulse 99 98 98 Oximetry 08/17/20 08/17/20 08/17/20 03:00 03:16 03:30 Pulse Rate 47 L 50 L 64 Respiratory 15 14 14 Rate Blood Pressure 97/73 113/46 113/41 O2 Sat by Pulse 95 100 100 Oximetry 08/17/20 08/17/20 08/17/20 03:45 04:00 04:16 Pulse Rate 70 66 69 Respiratory 13 12 18 Rate Blood Pressure 111/51 111/45 114/46 O2 Sat by Pulse 100 98 95 Oximetry 08/17/20 08/17/20 08/17/20 04:30 04:45 05:00 Pulse Rate 61 69 67 Respiratory 17 19 15 Rate Blood Pressure 109/44 117/48 107/44 O2 Sat by Pulse 97 86 97 Oximetry 08/17/20 08/17/20 05:15 05:30 Pulse Rate 63 81 Respiratory 15 13 Rate Blood Pressure 122/58 122/58 O2 Sat by Pulse 97 98 Oximetry - Labs CBC & Chem 7: 08/17/20 04:42 08/17/20 04:42 Labs: Abnormal lab results 08/17/20 08/17/20 Range/Units 04:42 04:42 WBC 14.4 H (4.5-11.0) K/mm3 RBC 3.12 L (3.65-5.03) M/mm3 Hgb 9.2 L (11.8-15.2) gm/dl Hct 29.1 L (35.5-45.6) % Seg Neuts % (Manual) 90.0 H (40.0-70.0) % Lymphocytes % (Manual) 4.0 L (13.4-35.0) % Seg Neutrophils # Man 13.0 H (1.8-7.7) K/mm3 Lymphocytes # (Manual) 0.6 L (1.2-5.4) K/mm3 Sodium 155 H (137-145) mmol/L Chloride 118.7 H (98-107) mmol/L Carbon Dioxide 20 L (22-30) mmol/L Creatinine 0.6 L (0.8-1.3) mg/dL Glucose 114 H (75-100) mg/dL Calcium 7.1 L (8.4-10.2) mg/dL Medications & Allergies - Medications Allergies/Adverse Reactions: Allergies No Known Allergies Allergy (Verified 01/10/19 02:20) Home Medications: Home Medications Medication Instructions Recorded Confirmed Last Taken Type Folic Acid [Folvite] 1 mg PO QDAY 01/10/19 08/14/20 Unknown History Primidone [Mysoline] 250 mg PO TID 01/10/19 08/14/20 Unknown History carBAMazepine [Carbamazepine] 200 mg PO TID 01/10/19 08/14/20 Unknown History oxyCODONE /ACETAMINOPHEN [Percocet 1 tab PO Q6H PRN #14 tablet 01/12/19 08/14/20 Unknown Rx 5/325 mg] Aspirin [Aspirin BABY CHEW TAB] 81 mg PO QDAY 08/15/20 08/15/20 Unknown History AtorvaSTATin [Lipitor] 40 mg PO QHS 08/15/20 08/15/20 Unknown History Citalopram Hydrobromide 20 mg PO QDAY 08/15/20 08/15/20 Unknown History [Citalopram HBr] Ergocalciferol [Vitamin D2] 1 cap PO QWEEK 08/15/20 08/15/20 Unknown History Folic Acid [Folvite] 1 mg PO QDAY 08/15/20 08/15/20 Unknown History Midodrine [Proamatine] 2.5 mg PO BID 08/15/20 08/15/20 Unknown History Mirtazapine 7.5 mg PO QHS 08/15/20 08/15/20 Unknown History guaiFENesin ER [Mucinex ER] 600 mg PO Q12H 08/15/20 08/15/20 Unknown History oxyCODONE /ACETAMINOPHEN [Percocet 1 tab PO Q6HR PRN 08/15/20 08/15/20 Unknown History 5/325] tiZANidine [Zanaflex 4mg TAB] 4 mg PO BID 08/15/20 08/15/20 Unknown History Active Medications: Generic Name Dose Route Start Last Admin Trade Name Freq PRN Reason Stop Dose Admin Carbamazepine 200 mg 08/15/20 14:00 08/16/20 22:27 Carbamazepine 200 Mg Tab PO 200 mg TID [facility] Administration Folic Acid 1 mg 08/15/20 10:00 08/16/20 09:41 Folic Acid 1 Mg Tab PO Not Given QDAY [facility] Heparin Sodium (Porcine) 5,000 unit 08/14/20 22:00 08/16/20 22:27 Heparin 5,000 Unit/1 Ml Vial SUB-Q 5,000 unit Q8HR [facility] Administration Vancomycin HCl 1,250 mg/ 275 mls @ 166.667 mls/hr 08/15/20 17:00 08/16/20 18:57 Sodium Chloride IV 166.667 mls/hr Q24H [facility] Administration Norepinephrine 4 mg in 250 mls @ 7.5 mls/hr 08/15/20 02:00 08/16/20 17:33 Levophed Drip 4 Mg/Ns 250 Ml IV 10 mcg/min TITR [facility] 37.5 mls/hr Administration Protocol 2 MCG/MIN Cefepime HCl 2 gm in 100 mls @ 200 mls/hr 08/15/20 10:00 08/17/20 07:10 Cefepime/Ns 2 Gm/100 Ml IV 200 mls/hr Q8H [facility] Administration Protocol Sodium Chloride 1,000 mls @ 125 mls/hr 08/15/20 11:00 08/16/20 20:45 Nacl 0.45% 1000 Ml IV 125 mls/hr DIRECT [facility] Administration Magnesium Hydroxide 30 ml 08/14/20 15:42 Magnesium Hydroxide (Mom) Oral Liqd Udc PO Q4H PRN Constipation Midodrine 2.5 mg 08/16/20 08:00 08/16/20 16:49 Midodrine 2.5 Mg Tab PO 2.5 mg TID@0800,1200,1600 [facility] Administration Morphine Sulfate 2 mg 08/15/20 17:57 08/16/20 01:23 Morphine 2 Mg/1 Ml Inj IV 2 mg Q6H PRN Administration Pain, Moderate (4-6) Ondansetron HCl 4 mg 08/14/20 15:42 08/16/20 01:23 Ondansetron 4 Mg/2 Ml Inj IV 4 mg Q8H PRN Administration Nausea And Vomiting Primidone 250 mg 08/15/20 14:00 08/16/20 22:25 Primidone 250 Mg Tab PO 250 mg TID [facility] Administration Sodium Bicarbonate 650 mg 08/16/20 20:00 08/16/20 22:25 Sodium Bicarbonate 650 Mg Tab PO 650 mg TID [facility] Administration Sodium Chloride 10 ml 08/14/20 22:00 08/16/20 22:36 Sodium Chloride 0.9% 10 Ml Flush Syringe IV 10 ml BID [facility] Administration Sodium Chloride 10 ml 08/14/20 15:42 Sodium Chloride 0.9% 10 Ml Flush Syringe IV PRN PRN LINE FLUSH HEART Score - HEART Score Troponin: Troponin T 0.034 ng/mL (0.00-0.029) H 08/14/20 11:02
[2020-08-17] MEDS: VANCOMYCIN 1,250 MG in SODIUM CHLORIDE 0.9% 250ML 250 ML IV SCH ×2 (09:26→22:21)
[2020-08-17] MEDS: PRIMIDONE 250 MG TAB PO SCH ×3 (09:27→20:20)
[2020-08-17] MEDS: MIDODRINE 2.5 MG TAB PO SCH ×3 (09:27→16:28)
[2020-08-17] MEDS: carBAMazepine 200 MG TAB PO SCH ×3 (09:28→22:21)
[2020-08-17] MEDS: SODIUM BICARBONATE 650 MG TAB PO SCH ×3 (09:28→20:21)
[2020-08-17] MEDS: NORepinephrine/NS 4 MG-250 ML 4 MG/250 ML BAG IV SCH (09:54)
[2020-08-17] MEDS: FOLIC ACID 1 MG TAB PO SCH (10:52)
--- NOTE | 2020-08-17 15:09 | Progress Note ---
Subjective Date of service: 08/17/20 Interval history: 75-year-old male [facility] brought into the emergency room for evaluation of changes in mental status and low blood pressure. Upon arrival in the emergency room blood pressure was found to be 70s systolic and 30s diastolic, tachycardic in the 160s. Patient was subsequently placed on IV fluid with improvement in his blood pressure and mentation. He denies any chest pain or shortness of breath, no nausea or vomiting, no diarrhea, no headache or dizziness, no hematuria or dysuria. Patient indicates that he has not been able to walk because he was diagnosed with spondylosis and multiple bulging disc. Work-up today reveals a leukocytosis of 22, lactic acid of 4.9, sodium of 152. He also had elevated BUN and creatinine. Urinalysis reveals UTI. Patient has been admitted for dehydration, sepsis secondary to UTI. 08/17 patient is alert and awake, slow to respond to questions , no complaints, denies pain, lab results reviewed, pulmonary and nephrology notes reviewed Assessment and plan: -- Septic shock/remains on Levophed Current Visit: Yes Status: Acute Plan to address problem: On Levophed , titrate systolic blood pressures to more than 100 UTI, infected heel IV fluids Blood cultures-no growth --Leukocytosis/sepsis Current Visit: Yes Status: Acute Plan to address problem: Continue empiric antibiotics -- Acute hypernatremia Current Visit: Yes Status: Acute . Plan to address problem: secondary to dehydration. Continue IV fluids Nephrology note reviewed Slow improvement Monitor electrolytes closely --Acute renal failure/vasomotor nephropathy Current Visit: Yes Status: Acute Plan to address problem: Gentle hydration closely monitor renal function Avoid nephrotoxins. Renal function improving --UTI (urinary tract infection) Current Visit: Yes Status: Acute Plan to address problem: Probably the cause of hypotension, empiric antibiotics follow cultures ID evaluation if needed --Chronic sacral wound Current Visit: Yes Status: Acute Plan to address problem: wound care, continue IV antibiotics, follow cultures --DVT prophylaxis Current Visit: Yes Status: Acute Plan to address problem: Patient placed on subcutaneous heparin. --Full code status Current Visit: Yes Status: Acute Plan to address problem: Patient is a full code. History Interval history: I have seen and examined the patient at the bedside Patient's chart and medications reviewed Patient looks critically ill, septic shock on Levophed Alert and awake minimally communicative Vital signs reviewed Objective - Constitutional Vitals: Vital Signs - 12hr 08/17/20 08/17/20 08/17/20 03:16 03:30 03:45 Pulse Rate 50 L 64 70 Respiratory 14 14 13 Rate Blood Pressure 113/46 113/41 111/51 O2 Sat by Pulse 100 100 100 Oximetry 08/17/20 08/17/20 08/17/20 04:00 04:16 04:30 Pulse Rate 66 69 61 Respiratory 12 18 17 Rate Blood Pressure 111/45 114/46 109/44 O2 Sat by Pulse 98 95 97 Oximetry 08/17/20 08/17/20 08/17/20 04:45 05:00 05:15 Pulse Rate 69 67 63 Respiratory 19 15 15 Rate Blood Pressure 117/48 107/44 122/58 O2 Sat by Pulse 86 97 97 Oximetry 08/17/20 08/17/20 08/17/20 05:30 05:45 06:00 Pulse Rate 81 66 65 Respiratory 13 18 15 Rate Blood Pressure 122/58 115/50 112/51 O2 Sat by Pulse 98 97 97 Oximetry 08/17/20 08/17/20 08/17/20 06:15 06:30 07:16 Pulse Rate 65 64 61 Respiratory 16 11 L 12 Rate Blood Pressure 109/51 110/54 110/54 O2 Sat by Pulse 95 Oximetry 08/17/20 08/17/20 08/17/20 07:30 07:46 08:00 Pulse Rate 63 63 65 Respiratory 17 16 15 Rate Blood Pressure 110/54 110/54 121/53 O2 Sat by Pulse 98 Oximetry 08/17/20 08/17/20 08/17/20 08:16 08:30 08:46 Pulse Rate 73 77 66 Respiratory 14 13 12 Rate Blood Pressure 121/53 131/63 131/63 O2 Sat by Pulse 98 100 97 Oximetry 08/17/20 08/17/20 08/17/20 09:00 09:16 09:30 Pulse Rate 63 63 61 Respiratory 13 17 17 Rate Blood Pressure 136/59 136/59 131/64 O2 Sat by Pulse 99 98 99 Oximetry 08/17/20 08/17/20 08/17/20 09:46 10:00 10:16 Pulse Rate 68 68 76 Respiratory 13 14 16 Rate Blood Pressure 131/64 119/58 119/58 O2 Sat by Pulse 98 97 93 Oximetry 08/17/20 08/17/20 08/17/20 10:30 10:46 11:00 Pulse Rate 66 66 63 Respiratory 13 21 15 Rate Blood Pressure 128/60 128/60 127/65 O2 Sat by Pulse 94 96 100 Oximetry 08/17/20 08/17/20 08/17/20 11:16 11:30 11:46 Pulse Rate 62 65 55 L Respiratory 16 11 L 13 Rate Blood Pressure 127/65 127/59 127/59 O2 Sat by Pulse 98 97 98 Oximetry 08/17/20 08/17/20 08/17/20 12:00 12:16 12:30 Pulse Rate 63 63 78 Respiratory 17 17 14 Rate Blood Pressure 134/65 134/65 134/65 O2 Sat by Pulse 98 95 96 Oximetry 08/17/20 08/17/20 08/17/20 13:00 13:30 13:46 Pulse Rate 68 57 L 64 Respiratory 14 14 13 Rate Blood Pressure 129/60 129/60 108/47 O2 Sat by Pulse 99 Oximetry 08/17/20 08/17/20 14:00 14:30 Pulse Rate 65 62 Respiratory 14 14 Rate Blood Pressure 103/45 117/43 O2 Sat by Pulse 98 98 Oximetry General appearance: Present: no acute distress, well-nourished - EENT Eyes: PERRL, EOM intact ENT: hearing intact - Neck Neck: supple, normal ROM, no masses or JVD - Respiratory Respiratory effort: normal Respiratory: bilateral: CTA, diminished - Cardiovascular Rhythm: regular Extremities: No edema (Both feet are wrapped in dressing, right leg is discolored distally) - Gastrointestinal General gastrointestinal: Present: soft, non-tender Rectal Exam: deferred - Musculoskeletal Musculoskeletal: generalized weakness - Psychiatric Psychiatric: appropriate mood/affect - Labs CBC & Chem 7: 08/17/20 04:42 08/17/20 04:42 Labs: Abnormal lab results 08/17/20 08/17/20 Range/Units 04:42 04:42 WBC 14.4 H (4.5-11.0) K/mm3 RBC 3.12 L (3.65-5.03) M/mm3 Hgb 9.2 L (11.8-15.2) gm/dl Hct 29.1 L (35.5-45.6) % Seg Neuts % (Manual) 90.0 H (40.0-70.0) % Lymphocytes % (Manual) 4.0 L (13.4-35.0) % Seg Neutrophils # Man 13.0 H (1.8-7.7) K/mm3 Lymphocytes # (Manual) 0.6 L (1.2-5.4) K/mm3 Sodium 155 H (137-145) mmol/L Chloride 118.7 H (98-107) mmol/L Carbon Dioxide 20 L (22-30) mmol/L Creatinine 0.6 L (0.8-1.3) mg/dL Glucose 114 H (75-100) mg/dL Calcium 7.1 L (8.4-10.2) mg/dL HEART Score - HEART Score Troponin: Troponin T 0.034 ng/mL (0.00-0.029) H 08/14/20 11:02
[2020-08-17] MEDS: HEPARIN 5,000 UNIT/1 ML VIAL SUB-Q SCH ×4 (15:43→22:24)
--- NOTE | 2020-08-17 17:13 | Progress Note ---
Assessment and Plan (1) Septic shock (2) Acute hypernatremia (3) Acute renal failure (4) UTI (urinary tract infection) (5) Acidosis FAZAL secondary to prerenla azotemia, Cr is trending down with IVF Continue 1/2 NS for volume repletion and hypernatremia D5W 500 cc once as Na high Continue bicarb tabs for acidosis urine lytes ordered strict I&O daily weight avoid nephrotoxins Renally dose emds Subjective Date of service: 08/17/20 Interval history: Making urine. In IMCU. Objective - Exam Narrative Exam: General appearance: cachectic, other (Chronically ill looking) - EENT Eyes: Present: PERRL, EOM intact - Neck Neck: Present: supple, normal ROM - Respiratory Respiratory effort: normal Respiratory: bilateral: diminished, rhonchi, negative: rales, wheezing - Cardiovascular Rhythm: regular Heart Sounds: Present: S1 & S2 - Extremities Extremities: no ischemia, No edema, abnormal (Chronic multiple wounds) - Abdominal General gastrointestinal: soft, non-tender, non-distended, normal bowel sounds - Integumentary Integumentary: Present: clear, warm - Psychiatric Psychiatric: appropriate mood/affect, cooperative - Neurologic Neurologic: CNII-XII intact, moves all extremities - Vital Signs Vital signs: Vital Signs - 12hr 08/17/20 08/17/20 08/17/20 05:15 05:30 05:45 Pulse Rate 63 81 66 Respiratory 15 13 18 Rate Blood Pressure 122/58 122/58 115/50 O2 Sat by Pulse 97 98 97 Oximetry 08/17/20 08/17/20 08/17/20 06:00 06:15 06:30 Pulse Rate 65 65 64 Respiratory 15 16 11 L Rate Blood Pressure 112/51 109/51 110/54 O2 Sat by Pulse 97 95 Oximetry 08/17/20 08/17/20 08/17/20 07:16 07:30 07:46 Pulse Rate 61 63 63 Respiratory 12 17 16 Rate Blood Pressure 110/54 110/54 110/54 O2 Sat by Pulse Oximetry 08/17/20 08/17/20 08/17/20 08:00 08:16 08:30 Pulse Rate 65 73 77 Respiratory 15 14 13 Rate Blood Pressure 121/53 121/53 131/63 O2 Sat by Pulse 98 98 100 Oximetry 08/17/20 08/17/20 08/17/20 08:46 09:00 09:16 Pulse Rate 66 63 63 Respiratory 12 13 17 Rate Blood Pressure 131/63 136/59 136/59 O2 Sat by Pulse 97 99 98 Oximetry 08/17/20 08/17/20 08/17/20 09:30 09:46 10:00 Pulse Rate 61 68 68 Respiratory 17 13 14 Rate Blood Pressure 131/64 131/64 119/58 O2 Sat by Pulse 99 98 97 Oximetry 08/17/20 08/17/20 08/17/20 10:16 10:30 10:46 Pulse Rate 76 66 66 Respiratory 16 13 21 Rate Blood Pressure 119/58 128/60 128/60 O2 Sat by Pulse 93 94 96 Oximetry 08/17/20 08/17/20 08/17/20 11:00 11:16 11:30 Pulse Rate 63 62 65 Respiratory 15 16 11 L Rate Blood Pressure 127/65 127/65 127/59 O2 Sat by Pulse 100 98 97 Oximetry 08/17/20 08/17/20 08/17/20 11:46 12:00 12:16 Pulse Rate 55 L 63 63 Respiratory 13 17 17 Rate Blood Pressure 127/59 134/65 134/65 O2 Sat by Pulse 98 98 95 Oximetry 08/17/20 08/17/20 08/17/20 12:30 13:00 13:30 Pulse Rate 78 68 57 L Respiratory 14 14 14 Rate Blood Pressure 134/65 129/60 129/60 O2 Sat by Pulse 96 Oximetry 08/17/20 08/17/20 08/17/20 13:46 14:00 14:30 Pulse Rate 64 65 62 Respiratory 13 14 14 Rate Blood Pressure 108/47 103/45 117/43 O2 Sat by Pulse 99 98 98 Oximetry 08/17/20 08/17/20 08/17/20 15:00 15:30 16:00 Pulse Rate 65 62 55 L Respiratory 16 16 14 Rate Blood Pressure 109/48 112/50 113/51 O2 Sat by Pulse 95 99 97 Oximetry - Lab 08/17/20 04:42 08/17/20 04:42 Most recent lab results Calcium 7.1 mg/dL (8.4-10.2) L 08/17/20 04:42 Phosphorus 1.80 mg/dL (2.5-4.5) L 08/16/20 05:20 Magnesium 1.80 mg/dL (1.7-2.3) 08/16/20 05:20 Urine Creatinine 35.9 mg/dL (0.1-20.0) H 08/15/20 22:12 Urine Creatinine 36.0 mg/dL (0.1-20.0) H 08/15/20 22:12 Urine Sodium 77 mmol/L 08/15/20 22:12 Urine Total Protein 115 mg/dL (5-11.8) H 08/15/20 22:12 Medications & Allergies - Medications Allergies/Adverse Reactions: Allergies No Known Allergies Allergy (Verified 01/10/19 02:20) Home Medications: Home Medications Medication Instructions Recorded Confirmed Last Taken Type Folic Acid [Folvite] 1 mg PO QDAY 01/10/19 08/14/20 Unknown History Primidone [Mysoline] 250 mg PO TID 01/10/19 08/14/20 Unknown History carBAMazepine [Carbamazepine] 200 mg PO TID 01/10/19 08/14/20 Unknown History oxyCODONE /ACETAMINOPHEN [Percocet 1 tab PO Q6H PRN #14 tablet 01/12/19 08/14/20 Unknown Rx 5/325 mg] Aspirin [Aspirin BABY CHEW TAB] 81 mg PO QDAY 08/15/20 08/15/20 Unknown History AtorvaSTATin [Lipitor] 40 mg PO QHS 08/15/20 08/15/20 Unknown History Citalopram Hydrobromide 20 mg PO QDAY 08/15/20 08/15/20 Unknown History [Citalopram HBr] Ergocalciferol [Vitamin D2] 1 cap PO QWEEK 08/15/20 08/15/20 Unknown History Folic Acid [Folvite] 1 mg PO QDAY 08/15/20 08/15/20 Unknown History Midodrine [Proamatine] 2.5 mg PO BID 08/15/20 08/15/20 Unknown History Mirtazapine 7.5 mg PO QHS 08/15/20 08/15/20 Unknown History guaiFENesin ER [Mucinex ER] 600 mg PO Q12H 08/15/20 08/15/20 Unknown History oxyCODONE /ACETAMINOPHEN [Percocet 1 tab PO Q6HR PRN 08/15/20 08/15/20 Unknown History 5/325] tiZANidine [Zanaflex 4mg TAB] 4 mg PO BID 08/15/20 08/15/20 Unknown History Active Medications: Generic Name Dose Route Start Last Admin Trade Name Freq PRN Reason Stop Dose Admin Carbamazepine 200 mg 08/15/20 14:00 08/17/20 14:55 Carbamazepine 200 Mg Tab PO 200 mg TID MARSHALL Administration Folic Acid 1 mg 08/15/20 10:00 08/17/20 10:52 Folic Acid 1 Mg Tab PO 1 mg QDAY MARSHALL Administration Heparin Sodium (Porcine) 5,000 unit 08/14/20 22:00 08/17/20 15:49 Heparin 5,000 Unit/1 Ml Vial SUB-Q 5,000 unit Q8HR MARSHALL Administration Norepinephrine 4 mg in 250 mls @ 7.5 mls/hr 08/15/20 02:00 08/17/20 14:31 Levophed Drip 4 Mg/Ns 250 Ml IV 4 mcg/min TITR MARSHALL 15 mls/hr Titration Protocol 2 MCG/MIN Cefepime HCl 2 gm in 100 mls @ 200 mls/hr 08/15/20 10:00 08/17/20 17:12 Cefepime/Ns 2 Gm/100 Ml IV 200 mls/hr Q8H MARSHALL Administration Protocol Sodium Chloride 1,000 mls @ 125 mls/hr 08/15/20 11:00 08/16/20 20:45 Nacl 0.45% 1000 Ml IV 125 mls/hr DIRECT MARSHALL Administration Vancomycin HCl 1,250 mg/ 275 mls @ 166.667 mls/hr 08/17/20 09:00 08/17/20 09:26 Sodium Chloride IV 166.667 mls/hr Q12H MARSHALL Administration Dextrose 500 mls @ 500 mls/hr 08/17/20 18:00 D5w IV 08/17/20 19:00 DIRECT MARSHALL Magnesium Hydroxide 30 ml 08/14/20 15:42 Magnesium Hydroxide (Mom) Oral Liqd Udc PO Q4H PRN Constipation Midodrine 2.5 mg 08/16/20 08:00 08/17/20 16:28 Midodrine 2.5 Mg Tab PO 2.5 mg TID@0800,1200,1600 MARSHALL Administration Morphine Sulfate 2 mg 08/15/20 17:57 08/16/20 01:23 Morphine 2 Mg/1 Ml Inj IV 2 mg Q6H PRN Administration Pain, Moderate (4-6) Ondansetron HCl 4 mg 08/14/20 15:42 08/16/20 01:23 Ondansetron 4 Mg/2 Ml Inj IV 4 mg Q8H PRN Administration Nausea And Vomiting Primidone 250 mg 08/15/20 14:00 08/17/20 14:55 Primidone 250 Mg Tab PO 250 mg TID MARSHALL Administration Sodium Bicarbonate 650 mg 08/16/20 20:00 08/17/20 14:55 Sodium Bicarbonate 650 Mg Tab PO 650 mg TID MARSHALL Administration Sodium Chloride 10 ml 08/14/20 22:00 08/16/20 22:36 Sodium Chloride 0.9% 10 Ml Flush Syringe IV 10 ml BID MARSHALL Administration Sodium Chloride 10 ml 08/14/20 15:42 Sodium Chloride 0.9% 10 Ml Flush Syringe IV PRN PRN LINE FLUSH
[2020-08-17] MEDS ORDERED: DEXTROSE 5% IN WATER 500 ML IV SCH (18:00)
[2020-08-17] MEDS: SODIUM CHLORIDE 0.45% 1000 ML 1,000 ML IV SCH (20:51)
[2020-08-18] MEDS: CEFEPIME/NS 2 GM/100 ML 2 GM/100 ML BAG IV SCH ×3 (01:50→20:41)
[2020-08-18] MEDS: SODIUM CHLORIDE 0.45% 1000 ML 1,000 ML IV SCH ×3 (03:57→20:43)
[2020-08-18] MEDS: HEPARIN 5,000 UNIT/1 ML VIAL SUB-Q SCH ×3 (06:17→22:44)
[2020-08-18] MEDS: FOLIC ACID 1 MG TAB PO SCH (10:09)
[2020-08-18] MEDS: PRIMIDONE 250 MG TAB PO SCH ×3 (10:09→20:44)
[2020-08-18] MEDS: carBAMazepine 200 MG TAB PO SCH ×3 (10:09→20:44)
[2020-08-18] MEDS: MIDODRINE 2.5 MG TAB PO SCH ×3 (10:09→16:18)
[2020-08-18] MEDS: SODIUM BICARBONATE 650 MG TAB PO SCH ×3 (10:10→20:44)
[2020-08-18] MEDS: VANCOMYCIN 1,250 MG in SODIUM CHLORIDE 0.9% 250ML 250 ML IV SCH ×2 (11:06→22:43)
--- NOTE | 2020-08-18 12:38 | Progress Note ---
Assessment and Plan 75 y/o male with hypotension and electrolyte imbalances with acute renal failure. 08/18/20: Off levo. Vitals stable. Abx per primary team. Please down grade. Will sign off. 08/17/20: Will order some boluses of LR and discuss with nursing goal MAPS for adequate organ perfusion. abx therapy per primary. CCT 31 minutes. 1. Wean Vasopressors for MAPs> 65 2. cOntinue abx therapy for now. Follow up cultures 3. Follow up renal recs. Really need bolus fluids to get patient off of pressors and then would like to use maintenance therapy if still needed 4. Nutrition consult 5. Guarded prognosis CCT 31 minutes. 08/15/20 Per patient he has not been eating and drinking like he should so likely volume deplete. Would ask that bolus fluids be used to try to wean patient of vasopressor as quickly as possible and then use maintenance therapy to correct electrolyte abnormalities. Appears to be septic as well from a urinary source. Will change abx therapy to something more broad spectrum Follow up blood and urine cultures. CCT 31 minutes. Subjective Date of service: 08/18/20 Interval history: Off levo now. Vitals stable. Objective - Constitutional Vitals: Vital Signs - 12hr 08/18/20 08/18/20 08/18/20 01:00 01:30 02:00 Pulse Rate 74 73 71 Respiratory 12 15 17 Rate Blood Pressure 126/63 125/56 124/55 O2 Sat by Pulse 100 100 99 Oximetry 08/18/20 08/18/20 08/18/20 02:30 03:00 03:30 Pulse Rate 74 72 81 Respiratory 15 15 11 L Rate Blood Pressure 120/57 125/55 128/49 O2 Sat by Pulse 100 99 100 Oximetry 08/18/20 08/18/20 08/18/20 04:00 04:30 05:00 Pulse Rate 69 67 91 H Respiratory 17 17 12 Rate Blood Pressure 126/58 123/54 115/59 O2 Sat by Pulse 100 100 100 Oximetry 08/18/20 08/18/20 08/18/20 05:30 06:00 06:30 Pulse Rate 78 77 79 Respiratory 16 18 19 Rate Blood Pressure 119/64 127/58 123/57 O2 Sat by Pulse 100 100 100 Oximetry 08/18/20 08/18/20 07:00 07:30 Pulse Rate 72 86 Respiratory 18 23 Rate Blood Pressure 120/48 120/48 O2 Sat by Pulse 100 100 Oximetry - Labs CBC & Chem 7: 08/17/20 04:42 08/17/20 04:42 Medications & Allergies - Medications Allergies/Adverse Reactions: Allergies No Known Allergies Allergy (Verified 01/10/19 02:20) Home Medications: Home Medications Medication Instructions Recorded Confirmed Last Taken Type Folic Acid [Folvite] 1 mg PO QDAY 01/10/19 08/14/20 Unknown History Primidone [Mysoline] 250 mg PO TID 01/10/19 08/14/20 Unknown History carBAMazepine [Carbamazepine] 200 mg PO TID 01/10/19 08/14/20 Unknown History oxyCODONE /ACETAMINOPHEN [Percocet 1 tab PO Q6H PRN #14 tablet 01/12/19 08/14/20 Unknown Rx 5/325 mg] Aspirin [Aspirin BABY CHEW TAB] 81 mg PO QDAY 08/15/20 08/15/20 Unknown History AtorvaSTATin [Lipitor] 40 mg PO QHS 08/15/20 08/15/20 Unknown History Citalopram Hydrobromide 20 mg PO QDAY 08/15/20 08/15/20 Unknown History [Citalopram HBr] Ergocalciferol [Vitamin D2] 1 cap PO QWEEK 08/15/20 08/15/20 Unknown History Folic Acid [Folvite] 1 mg PO QDAY 08/15/20 08/15/20 Unknown History Midodrine [Proamatine] 2.5 mg PO BID 08/15/20 08/15/20 Unknown History Mirtazapine 7.5 mg PO QHS 08/15/20 08/15/20 Unknown History guaiFENesin ER [Mucinex ER] 600 mg PO Q12H 08/15/20 08/15/20 Unknown History oxyCODONE /ACETAMINOPHEN [Percocet 1 tab PO Q6HR PRN 08/15/20 08/15/20 Unknown History 5/325] tiZANidine [Zanaflex 4mg TAB] 4 mg PO BID 08/15/20 08/15/20 Unknown History Active Medications: Generic Name Dose Route Start Last Admin Trade Name Freq PRN Reason Stop Dose Admin Carbamazepine 200 mg 08/15/20 14:00 08/18/20 10:09 Carbamazepine 200 Mg Tab PO 200 mg TID MARSHALL Administration Folic Acid 1 mg 08/15/20 10:00 08/18/20 10:09 Folic Acid 1 Mg Tab PO 1 mg QDAY MARSHALL Administration Heparin Sodium (Porcine) 5,000 unit 08/14/20 22:00 08/18/20 06:17 Heparin 5,000 Unit/1 Ml Vial SUB-Q 5,000 unit Q8HR MARSHALL Administration Norepinephrine 4 mg in 250 mls @ 7.5 mls/hr 08/15/20 02:00 08/17/20 14:31 Levophed Drip 4 Mg/Ns 250 Ml IV 4 mcg/min TITR MARSHALL 15 mls/hr Titration Protocol 2 MCG/MIN Cefepime HCl 2 gm in 100 mls @ 200 mls/hr 08/15/20 10:00 08/18/20 10:08 Cefepime/Ns 2 Gm/100 Ml IV 200 mls/hr Q8H MARSHALL Administration Protocol Sodium Chloride 1,000 mls @ 125 mls/hr 08/15/20 11:00 08/18/20 11:22 Nacl 0.45% 1000 Ml IV 125 mls/hr DIRECT MARSHALL Administration Vancomycin HCl 1,250 mg/ 275 mls @ 166.667 mls/hr 08/17/20 09:00 08/18/20 11:06 Sodium Chloride IV 166.667 mls/hr Q12H MARSHALL Administration Sodium Chloride 1,000 mls @ 125 mls/hr 08/17/20 18:00 08/18/20 03:57 Nacl 0.45% 1000 Ml IV 125 mls/hr DIRECT MARSHALL Administration Magnesium Hydroxide 30 ml 08/14/20 15:42 Magnesium Hydroxide (Mom) Oral Liqd Udc PO Q4H PRN Constipation Midodrine 2.5 mg 08/16/20 08:00 08/18/20 10:09 Midodrine 2.5 Mg Tab PO 2.5 mg TID@0800,1200,1600 MARSHALL Administration Morphine Sulfate 2 mg 08/15/20 17:57 08/16/20 01:23 Morphine 2 Mg/1 Ml Inj IV 2 mg Q6H PRN Administration Pain, Moderate (4-6) Ondansetron HCl 4 mg 08/14/20 15:42 08/16/20 01:23 Ondansetron 4 Mg/2 Ml Inj IV 4 mg Q8H PRN Administration Nausea And Vomiting Primidone 250 mg 08/15/20 14:00 08/18/20 10:09 Primidone 250 Mg Tab PO 250 mg TID MARSHALL Administration Sodium Bicarbonate 650 mg 08/16/20 20:00 08/18/20 10:10 Sodium Bicarbonate 650 Mg Tab PO Not Given TID MARSHALL Sodium Chloride 10 ml 08/14/20 22:00 08/17/20 22:24 Sodium Chloride 0.9% 10 Ml Flush Syringe IV 10 ml BID MARSHALL Administration Sodium Chloride 10 ml 08/14/20 15:42 Sodium Chloride 0.9% 10 Ml Flush Syringe IV PRN PRN LINE FLUSH HEART Score - HEART Score Troponin: Troponin T 0.034 ng/mL (0.00-0.029) H 08/14/20 11:02
[2020-08-18] MEDS: NORepinephrine/NS 4 MG-250 ML 4 MG/250 ML BAG IV SCH (13:05)
[2020-08-18] MEDS ORDERED: METOPROLOL TARTRATE 25 MG TAB PO ONE (13:34)
--- NOTE | 2020-08-18 15:47 | Progress Note ---
Assessment and Plan Assessment: Septic shock Acute hypernatremia Acute renal failure UTI (urinary tract infection) Acidosis Plan: FAZAL secondary to prerenal azotemia, no new metabolic labs noted for today Serum creatinine yesterday was 0.6 Sodium yesterday was 155, on 08/02 NS@ 125 ml/hr Check BMP levels in a.m Urine lytes reviewed Was on bicarb tabs Strict I&O's daily Obtain daily weights Avoid nephrotoxins Renally dose medications Continue to monitor Subjective Date of service: 08/18/20 Interval history: Patient seen sleeping in bed. No family at bedside. Objective - Vital Signs Vital signs: Vital Signs - 12hr 08/18/20 08/18/20 08/18/20 04:00 04:30 05:00 Pulse Rate 69 67 91 H Respiratory 17 17 12 Rate Blood Pressure 126/58 123/54 115/59 O2 Sat by Pulse 100 100 100 Oximetry 08/18/20 08/18/20 08/18/20 05:30 06:00 06:30 Pulse Rate 78 77 79 Respiratory 16 18 19 Rate Blood Pressure 119/64 127/58 123/57 O2 Sat by Pulse 100 100 100 Oximetry 08/18/20 08/18/20 08/18/20 07:00 07:30 08:00 Pulse Rate 72 86 69 Respiratory 18 23 19 Rate Blood Pressure 120/48 120/48 120/48 O2 Sat by Pulse 100 100 Oximetry 08/18/20 08/18/20 08/18/20 08:30 09:00 09:30 Pulse Rate 66 83 68 Respiratory 13 15 17 Rate Blood Pressure 119/53 117/50 129/56 O2 Sat by Pulse 99 97 96 Oximetry 08/18/20 08/18/20 08/18/20 10:00 10:30 11:00 Pulse Rate 70 74 83 Respiratory 21 12 14 Rate Blood Pressure 136/57 140/59 137/66 O2 Sat by Pulse 96 96 100 Oximetry 08/18/20 08/18/20 08/18/20 11:30 12:00 12:30 Pulse Rate 69 64 96 H Respiratory 17 14 17 Rate Blood Pressure 136/56 146/62 136/56 O2 Sat by Pulse Oximetry 08/18/20 08/18/20 08/18/20 13:00 13:16 13:30 Pulse Rate 131 H 133 H 117 H Respiratory 14 13 12 Rate Blood Pressure 85/45 96/59 103/63 O2 Sat by Pulse 99 98 98 Oximetry 08/18/20 08/18/20 08/18/20 13:45 14:00 14:13 Pulse Rate 127 H 79 78 Respiratory 13 20 Rate Blood Pressure 91/53 111/54 O2 Sat by Pulse 99 98 Oximetry 08/18/20 08/18/20 08/18/20 14:15 14:30 14:45 Pulse Rate 89 80 72 Respiratory 17 12 14 Rate Blood Pressure 118/59 113/57 120/58 O2 Sat by Pulse 98 98 98 Oximetry 08/18/20 15:00 Pulse Rate 71 Respiratory 17 Rate Blood Pressure 122/58 O2 Sat by Pulse 97 Oximetry - General Appearance General appearance: other (No acute distress) EENT: ATNC Neck: no JVD Respiratory: Present: Decreased Breath Sounds Cardiology: S1S2 Gastrointestinal: normoactive bowel sounds Integumentary: other (dry and flaky) Neurologic: other (Sleeping heavily with mouth open) Musculoskeletal: joint swelling - Lab 08/17/20 04:42 08/17/20 04:42 Most recent lab results Calcium 7.1 mg/dL (8.4-10.2) L 08/17/20 04:42 Phosphorus 1.80 mg/dL (2.5-4.5) L 08/16/20 05:20 Magnesium 1.80 mg/dL (1.7-2.3) 08/16/20 05:20 Urine Creatinine 35.9 mg/dL (0.1-20.0) H 08/15/20 22:12 Urine Creatinine 36.0 mg/dL (0.1-20.0) H 08/15/20 22:12 Urine Sodium 77 mmol/L 08/15/20 22:12 Urine Total Protein 115 mg/dL (5-11.8) H 08/15/20 22:12 Medications & Allergies - Medications Allergies/Adverse Reactions: Allergies No Known Allergies Allergy (Verified 01/10/19 02:20) Home Medications: Home Medications Medication Instructions Recorded Confirmed Last Taken Type Folic Acid [Folvite] 1 mg PO QDAY 01/10/19 08/14/20 Unknown History Primidone [Mysoline] 250 mg PO TID 01/10/19 08/14/20 Unknown History carBAMazepine [Carbamazepine] 200 mg PO TID 01/10/19 08/14/20 Unknown History oxyCODONE /ACETAMINOPHEN [Percocet 1 tab PO Q6H PRN #14 tablet 01/12/19 08/14/20 Unknown Rx 5/325 mg] Aspirin [Aspirin BABY CHEW TAB] 81 mg PO QDAY 08/15/20 08/15/20 Unknown History AtorvaSTATin [Lipitor] 40 mg PO QHS 08/15/20 08/15/20 Unknown History Citalopram Hydrobromide 20 mg PO QDAY 08/15/20 08/15/20 Unknown History [Citalopram HBr] Ergocalciferol [Vitamin D2] 1 cap PO QWEEK 08/15/20 08/15/20 Unknown History Folic Acid [Folvite] 1 mg PO QDAY 08/15/20 08/15/20 Unknown History Midodrine [Proamatine] 2.5 mg PO BID 08/15/20 08/15/20 Unknown History Mirtazapine 7.5 mg PO QHS 08/15/20 08/15/20 Unknown History guaiFENesin ER [Mucinex ER] 600 mg PO Q12H 08/15/20 08/15/20 Unknown History oxyCODONE /ACETAMINOPHEN [Percocet 1 tab PO Q6HR PRN 08/15/20 08/15/20 Unknown History 5/325] tiZANidine [Zanaflex 4mg TAB] 4 mg PO BID 08/15/20 08/15/20 Unknown History Active Medications: Generic Name Dose Route Start Last Admin Trade Name Freq PRN Reason Stop Dose Admin Carbamazepine 200 mg 08/15/20 14:00 08/18/20 14:08 Carbamazepine 200 Mg Tab PO 200 mg TID MARSHALL Administration Folic Acid 1 mg 08/15/20 10:00 08/18/20 10:09 Folic Acid 1 Mg Tab PO 1 mg QDAY MARSHALL Administration Heparin Sodium (Porcine) 5,000 unit 08/14/20 22:00 08/18/20 14:04 Heparin 5,000 Unit/1 Ml Vial SUB-Q 5,000 unit Q8HR MARSHALL Administration Norepinephrine 4 mg in 250 mls @ 7.5 mls/hr 08/15/20 02:00 08/18/20 13:05 Levophed Drip 4 Mg/Ns 250 Ml IV 4 mcg/min TITR MARSHALL 15 mls/hr Administration Protocol 2 MCG/MIN Cefepime HCl 2 gm in 100 mls @ 200 mls/hr 08/15/20 10:00 08/18/20 10:08 Cefepime/Ns 2 Gm/100 Ml IV 200 mls/hr Q8H MARSHALL Administration Protocol Sodium Chloride 1,000 mls @ 125 mls/hr 08/15/20 11:00 08/18/20 11:22 Nacl 0.45% 1000 Ml IV 125 mls/hr DIRECT MARSHALL Administration Vancomycin HCl 1,250 mg/ 275 mls @ 166.667 mls/hr 08/17/20 09:00 08/18/20 11:06 Sodium Chloride IV 166.667 mls/hr Q12H MARSHALL Administration Sodium Chloride 1,000 mls @ 125 mls/hr 08/17/20 18:00 08/18/20 03:57 Nacl 0.45% 1000 Ml IV 125 mls/hr DIRECT MARSHALL Administration Magnesium Hydroxide 30 ml 08/14/20 15:42 Magnesium Hydroxide (Mom) Oral Liqd Udc PO Q4H PRN Constipation Midodrine 2.5 mg 08/16/20 08:00 08/18/20 14:04 Midodrine 2.5 Mg Tab PO 2.5 mg TID@0800,1200,1600 MARSHALL Administration Morphine Sulfate 2 mg 08/15/20 17:57 08/16/20 01:23 Morphine 2 Mg/1 Ml Inj IV 2 mg Q6H PRN Administration Pain, Moderate (4-6) Ondansetron HCl 4 mg 08/14/20 15:42 08/16/20 01:23 Ondansetron 4 Mg/2 Ml Inj IV 4 mg Q8H PRN Administration Nausea And Vomiting Primidone 250 mg 08/15/20 14:00 08/18/20 10:09 Primidone 250 Mg Tab PO 250 mg TID MARSHALL Administration Sodium Bicarbonate 650 mg 08/16/20 20:00 08/18/20 10:10 Sodium Bicarbonate 650 Mg Tab PO Not Given TID MARSHALL Sodium Chloride 10 ml 08/14/20 22:00 08/17/20 22:24 Sodium Chloride 0.9% 10 Ml Flush Syringe IV 10 ml BID MARSHALL Administration Sodium Chloride 10 ml 08/14/20 15:42 Sodium Chloride 0.9% 10 Ml Flush Syringe IV PRN PRN LINE FLUSH
[2020-08-18 17:09] LABS: Hematocrit 27.2 % (35.5-45.6); Hemoglobin 8.8 gm/dl (11.8-15.2); Mean Corpuscular HGB Conc 33 % (32-34); Mean Corpuscular Volume 92 fl (84-94); Platelet Count 210 K/mm3 (140-440); Red Blood Count 2.95 M/mm3 (3.65-5.03); Red Cell Distribution Width 13.4 % (13.2-15.2)
[2020-08-18 17:23] LABS: Blood Urea Nitrogen 7 mg/dL (9-20); Hemolysis Index 4
[2020-08-18 17:26] LABS: BUN/Creatinine Ratio 14
[2020-08-18 18:22] LABS: Anisocytosis 1+; Total Cells Counted 100
--- NOTE | 2020-08-18 18:22 | Progress Note ---
Assessment and Plan Assessment and plan: --Severe hypokalemia; potassium 2.4 IV K-Phos and replenish with p.o. KCl monitor Magnesium and phosphate levels. --Hypophosphatemia Replenish with K-Phos IV closely monitor electrolytes -- Septic shock/remains on Levophed Current Visit: Yes Status: Acute Plan to address problem: On Levophed , titrate systolic blood pressures to more than 100 UTI and infected heel, continue antibiotics IV fluids, Blood cultures-no growth --Leukocytosis/sepsis Current Visit: Yes Status: Acute Plan to address problem: White count trending down, continue empiric antibiotics -- Acute hypernatremia Current Visit: Yes Status: Acute . Plan to address problem: Significant improvement Closely monitor electrolytes --Acute renal failure/vasomotor nephropathy Current Visit: Yes Status: Acute Plan to address problem: Resolved, normal renal function Avoid nephrotoxin --UTI (urinary tract infection) Current Visit: Yes Status: Acute Plan to address problem: Continue empiric antibiotics, follow cultures --Chronic sacral wound Current Visit: Yes Status: Acute Plan to address problem: wound care, continue IV antibiotics, follow cultures. --Severe protein calorie malnutrition; Current Visit: Yes Status: Acute Plan to address problem: Nutrition supplements, Ensure plus Dietitian following, encourage oral intake Tube feeding as needed --DVT prophylaxis Current Visit: Yes Status: Acute Plan to address problem: Subcu heparin --Full code status Current Visit: Yes Status: Acute Plan to address problem: Patient is a full code. We will closely monitor the patient and adjust management as needed Plan of care reviewed with the patient and his nurse Critical care time 40 minutes The high probability of a clinically significant, sudden or life threatening deterioration of the [MULTIPLE ORGAN] system(s) required my full and direct attention, intervention and personal management. The aggregate critical care time was [40 ] minutes. This time is in addition to time spent performing reported procedures but includes the following: [X] Data Review and interpretation [X] Patient assessment and monitoring of vital signs [X] Documentation [X] Medication orders and management Brief history and hospital course; 75-year-old male resident of a [facility] brought into the emergency room for evaluation of changes in mental status and low blood pressure. Upon arrival in the emergency room blood pressure was found to be 70s systolic and 30s diastolic, tachycardic in the 160s. Patient was subsequently placed on IV fluid with improvement in his blood pressure and mentation. He denies any chest pain or shortness of breath, no nausea or vomiting, no diarrhea, no headache or dizziness, no hematuria or dysuria. Patient indicates that he has not been able to walk because he was diagnosed with spondylosis and multiple bulging disc. Work-up today reveals a leukocytosis of 22, lactic acid of 4.9, sodium of 152. He also had elevated BUN and creatinine. Urinalysis reveals UTI. Patient has been admitted for dehydration, sepsis secondary to UTI. 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 and surgical services asst follow ing History Interval history: I have seen and examined the patient at the bedside this morning Patient's chart and medications reviewed Today's labs consistent with severe hypokalemia, hypophosphatemia Will replenish with KCl and K-Phos Patient is alert and awake Refusing to eat Vital signs noted Hospitalist Physical - Constitutional Vitals: Temp Pulse Resp BP Pulse Ox 97.5 F L 64 14 130/59 99 08/18/20 00:28 08/18/20 17:46 08/18/20 17:46 08/18/20 17:46 08/18/20 17:46 General appearance: Present: no acute distress, well-nourished, other (Patient is refusing to eat) - EENT Eyes: Present: PERRL, EOM intact - Neck Neck: Present: supple, normal ROM - Respiratory Respiratory effort: normal Respiratory: bilateral: diminished, negative: rales, rhonchi, wheezing - Cardiovascular Rhythm: regular Heart Sounds: Present: S1 & S2 - Extremities Extremities: no ischemia, No edema - Abdominal General gastrointestinal: soft, non-tender, non-distended, normal bowel sounds - Integumentary Integumentary: Present: clear, warm - Psychiatric Psychiatric: appropriate mood/affect, other - Neurologic Neurologic: moves all extremities (Minimally communicative), other (Minimally communicative) HEART Score - HEART Score Troponin: Troponin T 0.034 ng/mL (0.00-0.029) H 08/14/20 11:02 Results - Labs CBC & Chem 7: 08/18/20 16:49 08/18/20 16:49 Labs: Laboratory Last Values WBC 13.0 K/mm3 (4.5-11.0) H 08/18/20 16:49 RBC 2.95 M/mm3 (3.65-5.03) L 08/18/20 16:49 Hgb 8.8 gm/dl (11.8-15.2) L 08/18/20 16:49 Hct 27.2 % (35.5-45.6) L 08/18/20 16:49 MCV 92 fl (84-94) 08/18/20 16:49 MCH 30 pg (28-32) 08/18/20 16:49 MCHC 33 % (32-34) 08/18/20 16:49 RDW 13.4 % (13.2-15.2) 08/18/20 16:49 Plt Count 210 K/mm3 (140-440) 08/18/20 16:49 Lymph % (Auto) 4.8 % (13.4-35.0) L 08/16/20 05:20 [place] % (Auto) 5.7 % (0.0-7.3) 08/16/20 05:20 Eos % (Auto) 0.0 % (0.0-4.3) 08/16/20 05:20 Baso % (Auto) 0.2 % (0.0-1.8) 08/16/20 05:20 Lymph # (Auto) 1.1 K/mm3 (1.2-5.4) L 08/16/20 05:20 [place] # (Auto) 1.3 K/mm3 (0.0-0.8) H 08/16/20 05:20 Eos # (Auto) 0.0 K/mm3 (0.0-0.4) 08/16/20 05:20 Baso # (Auto) 0.0 K/mm3 (0.0-0.1) 08/16/20 05:20 Add Manual Diff Complete 08/17/20 04:42 Total Counted 100 08/17/20 04:42 Seg Neutrophils % 89.3 % (40.0-70.0) H 08/16/20 05:20 Seg Neuts % (Manual) 90.0 % (40.0-70.0) H 08/17/20 04:42 Band Neutrophils % 5.0 % 08/15/20 14:22 Lymphocytes % (Manual) 4.0 % (13.4-35.0) L 08/17/20 04:42 Monocytes % (Manual) 5.0 % (0.0-7.3) 08/17/20 04:42 Eosinophils % (Manual) 1.0 % (0.0-4.3) 08/17/20 04:42 Metamyelocytes % 1.0 % 08/15/20 14:22 Nucleated RBC % Not Reportable 08/17/20 04:42 Seg Neutrophils # 21.1 K/mm3 (1.8-7.7) H 08/16/20 05:20 Seg Neutrophils # Man 13.0 K/mm3 (1.8-7.7) H 08/17/20 04:42 Band Neutrophils # 0.0 K/mm3 08/17/20 04:42 Lymphocytes # (Manual) 0.6 K/mm3 (1.2-5.4) L 08/17/20 04:42 Abs React Lymphs (Man) 0.0 K/mm3 08/17/20 04:42 Monocytes # (Manual) 0.7 K/mm3 (0.0-0.8) 08/17/20 04:42 Eosinophils # (Manual) 0.1 K/mm3 (0.0-0.4) 08/17/20 04:42 Basophils # (Manual) 0.0 K/mm3 (0.0-0.1) 08/17/20 04:42 Metamyelocytes # 0.0 K/mm3 08/17/20 04:42 Myelocytes # 0.0 K/mm3 08/17/20 04:42 Promyelocytes # 0.0 K/mm3 08/17/20 04:42 Blast Cells # 0.0 K/mm3 08/17/20 04:42 WBC Morphology Not Reportable 08/17/20 04:42 Hypersegmented Neuts Not Reportable 08/17/20 04:42 Hyposegmented Neuts Not Reportable 08/17/20 04:42 Hypogranular Neuts Not Reportable 08/17/20 04:42 Smudge Cells Not Reportable 08/17/20 04:42 Toxic Granulation Not Reportable 08/17/20 04:42 Toxic Vacuolation Not Reportable 08/17/20 04:42 Dohle Bodies Not Reportable 08/17/20 04:42 Pelger-Huet Anomaly Not Reportable 08/17/20 04:42 Kassi Rods Not Reportable 08/17/20 04:42 Platelet Estimate Consistent w auto 08/17/20 04:42 Clumped Platelets Not Reportable 08/17/20 04:42 Plt Clumps, EDTA Not Reportable 08/17/20 04:42 Large Platelets Not Reportable 08/17/20 04:42 Giant Platelets Not Reportable 08/17/20 04:42 Platelet Satelliting Not Reportable 08/17/20 04:42 Plt Morphology Comment Not Reportable 08/17/20 04:42 RBC Morphology Not Reportable 08/17/20 04:42 Dimorphic RBCs Not Reportable 08/17/20 04:42 Polychromasia Not Reportable 08/17/20 04:42 Hypochromasia Not Reportable 08/17/20 04:42 Poikilocytosis Not Reportable 08/17/20 04:42 Anisocytosis 1+ 08/17/20 04:42 Microcytosis Not Reportable 08/17/20 04:42 Macrocytosis Not Reportable 08/17/20 04:42 Spherocytes Not Reportable 08/17/20 04:42 Pappenheimer Bodies Not Reportable 08/17/20 04:42 Sickle Cells Not Reportable 08/17/20 04:42 Target Cells Not Reportable 08/17/20 04:42 Tear Drop Cells Not Reportable 08/17/20 04:42 Ovalocytes Not Reportable 08/17/20 04:42 Helmet Cells Not Reportable 08/17/20 04:42 [place] Bodies Not Reportable 08/17/20 04:42 [place] Rings Not Reportable 08/17/20 04:42 [place] Cells Not Reportable 08/17/20 04:42 Bite Cells Not Reportable 08/17/20 04:42 Crenated Cell Not Reportable 08/17/20 04:42 Elliptocytes Not Reportable 08/17/20 04:42 Acanthocytes (Spur) Not Reportable 08/17/20 04:42 Rouleaux Not Reportable 08/17/20 04:42 Hemoglobin C Crystals Not Reportable 08/17/20 04:42 Schistocytes Not Reportable 08/17/20 04:42 Malaria parasites Not Reportable 08/17/20 04:42 Richard Bodies Not Reportable 08/17/20 04:42 Hem Pathologist Commnt No 08/17/20 04:42 PT 15.4 Sec. (12.2-14.9) H 08/15/20 05:37 INR 1.24 (0.87-1.13) H 08/15/20 05:37 Sodium 146 mmol/L (137-145) H D 08/18/20 16:49 Potassium 2.4 mmol/L (3.6-5.0) L* D 08/18/20 16:49 Chloride 109.7 mmol/L (98-107) H 08/18/20 16:49 Carbon Dioxide 26 mmol/L (22-30) 08/18/20 16:49 Anion Gap 13 mmol/L 08/18/20 16:49 BUN 7 mg/dL (9-20) L 08/18/20 16:49 Creatinine 0.5 mg/dL (0.8-1.3) L 08/18/20 16:49 Estimated GFR > 60 ml/min 08/18/20 16:49 BUN/Creatinine Ratio 14 % 08/18/20 16:49 Glucose 104 mg/dL (75-100) H 08/18/20 16:49 POC Glucose 76 mg/dL (70-105) 08/16/20 00:04 Lactic Acid 1.50 mmol/L (0.7-2.0) 08/14/20 18:37 Calcium 7.0 mg/dL (8.4-10.2) L 08/18/20 16:49 Phosphorus 1.30 mg/dL (2.5-4.5) L 08/18/20 16:49 Magnesium 1.80 mg/dL (1.7-2.3) 08/16/20 05:20 Total Bilirubin < 0.20 mg/dL (0.1-1.2) 08/16/20 05:20 Direct Bilirubin < 0.2 mg/dL (0-0.2) 08/16/20 05:20 Indirect Bilirubin 0.0 mg/dL 08/16/20 05:20 AST 20 units/L (5-40) 08/16/20 05:20 ALT 11 units/L (7-56) 08/16/20 05:20 Alkaline Phosphatase 56 units/L (35-129) 08/16/20 05:20 Total Creatine Kinase 177 units/L (55-170) H 08/15/20 14:22 Troponin T 0.034 ng/mL (0.00-0.029) H 08/14/20 11:02 Total Protein 6.2 g/dL (6.3-8.2) L D 08/16/20 05:20 Albumin 2.5 g/dL (3.9-5) L 08/16/20 05:20 Albumin/Globulin Ratio 0.7 % 08/16/20 05:20 Triglycerides 370 mg/dL (2-149) H 08/14/20 11:02 Cholesterol 243 mg/dL (50-199) H 08/14/20 11:02 LDL Cholesterol Direct 130 mg/dL (50-130) 08/14/20 11:02 HDL Cholesterol 34 mg/dL (40-59) L 08/14/20 11:02 Cholesterol/HDL Ratio 7.14 % 08/14/20 11:02 Urine Color Yellow (Yellow) 08/14/20 13:25 Urine Turbidity Turbid (Clear) 08/14/20 13:25 Urine pH 5.0 (5.0-7.0) 08/14/20 13:25 Ur Specific [place] 1.020 (1.003-1.030) 08/14/20 13:25 Urine Protein 100 mg/dl mg/dL (Negative) 08/14/20 13:25 Urine Glucose (UA) Neg mg/dL (Negative) 08/14/20 13:25 Urine Ketones Tr mg/dL (Negative) 08/14/20 13:25 Urine Blood Mod (Negative) 08/14/20 13:25 Urine Nitrite Neg (Negative) 08/14/20 13:25 Urine Bilirubin Neg (Negative) 08/14/20 13:25 Urine Urobilinogen 2.0 mg/dL (<2.0) 08/14/20 13:25 Ur Leukocyte Esterase Mod (Negative) 08/14/20 13:25 Urine WBC (Auto) > 182.0 /HPF (0.0-6.0) H 08/14/20 13:25 Urine RBC (Auto) 56.0 /HPF (0.0-6.0) 08/14/20 13:25 U Epithel Cells (Auto) 2.0 /HPF (0-13.0) 08/14/20 13:25 Urine Bacteria (Auto) 3+ /HPF (Negative) 08/14/20 13:25 Urine WBC Clumps 3+ /HPF 08/14/20 13:25 Urine Mucus 2+ /HPF 08/14/20 13:25 Urine Creatinine 35.9 mg/dL (0.1-20.0) H 08/15/20 22:12 Urine Creatinine 36.0 mg/dL (0.1-20.0) H 08/15/20 22:12 Protein/Creatinin Ratio 3.20 08/15/20 22:12 Urine Sodium 77 mmol/L 08/15/20 22:12 Urine Total Protein 115 mg/dL (5-11.8) H 08/15/20 22:12 Vancomycin Trough 8.9 ug/mL (5.0-20.0) 08/16/20 16:48 Microbiology: Microbiology 08/14/20 11:02 Peripheral/Venous Blood Culture - Preliminary NO GROWTH AFTER 4 DAYS 08/14/20 11:02 Peripheral/Venous Blood Culture - Preliminary NO GROWTH AFTER 4 DAYS Rivas/IV: Voiding Method Indwelling Catheter IV Catheter Type [Left INT / Saline Lock Antecubital] Active Medications - Current Medications Current Medications: Generic Name Dose Route Start Last Admin Trade Name Freq PRN Reason Stop Dose Admin Carbamazepine 200 mg 08/15/20 14:00 08/18/20 14:08 Carbamazepine 200 Mg Tab PO 200 mg TID MARSHALL Administration Folic Acid 1 mg 08/15/20 10:00 08/18/20 10:09 Folic Acid 1 Mg Tab PO 1 mg QDAY MARSHALL Administration Heparin Sodium (Porcine) 5,000 unit 08/14/20 22:00 08/18/20 14:04 Heparin 5,000 Unit/1 Ml Vial SUB-Q 5,000 unit Q8HR MARSHALL Administration Norepinephrine 4 mg in 250 mls @ 7.5 mls/hr 08/15/20 02:00 08/18/20 13:05 Levophed Drip 4 Mg/Ns 250 Ml IV 4 mcg/min TITR MARSHALL 15 mls/hr Administration Protocol 2 MCG/MIN Cefepime HCl 2 gm in 100 mls @ 200 mls/hr 08/15/20 10:00 08/18/20 10:08 Cefepime/Ns 2 Gm/100 Ml IV 200 mls/hr Q8H MARSHALL Administration Protocol Sodium Chloride 1,000 mls @ 125 mls/hr 08/15/20 11:00 08/18/20 11:22 Nacl 0.45% 1000 Ml IV 125 mls/hr DIRECT MARSHALL Administration Vancomycin HCl 1,250 mg/ 275 mls @ 166.667 mls/hr 08/17/20 09:00 08/18/20 11:06 Sodium Chloride IV 166.667 mls/hr Q12H MARSHALL Administration Sodium Chloride 1,000 mls @ 125 mls/hr 08/17/20 18:00 08/18/20 03:57 Nacl 0.45% 1000 Ml IV 125 mls/hr DIRECT MARSHALL Administration Potassium Phosphate 40 mmol/ 513.3333 mls @ 83 mls/hr 08/18/20 18:17 Sodium Chloride IV 08/19/20 00:28 ONCE ONE Magnesium Hydroxide 30 ml 08/14/20 15:42 Magnesium Hydroxide (Mom) Oral Liqd Udc PO Q4H PRN Constipation Midodrine 2.5 mg 08/16/20 08:00 08/18/20 16:18 Midodrine 2.5 Mg Tab PO 2.5 mg TID@0800,1200,1600 MARSHALL Administration Morphine Sulfate 2 mg 08/15/20 17:57 08/16/20 01:23 Morphine 2 Mg/1 Ml Inj IV 2 mg Q6H PRN Administration Pain, Moderate (4-6) Ondansetron HCl 4 mg 08/14/20 15:42 08/16/20 01:23 Ondansetron 4 Mg/2 Ml Inj IV 4 mg Q8H PRN Administration Nausea And Vomiting Potassium Chloride 40 meq 08/18/20 19:00 Potassium Chloride Er 20 Meq Tab PO 08/18/20 22:01 Q3H MARSHALL Primidone 250 mg 08/15/20 14:00 08/18/20 16:17 Primidone 250 Mg Tab PO 250 mg TID MARSHALL Administration Sodium Bicarbonate 650 mg 08/16/20 20:00 08/18/20 16:17 Sodium Bicarbonate 650 Mg Tab PO 650 mg TID MARSHALL Administration Sodium Chloride 10 ml 08/14/20 22:00 08/17/20 22:24 Sodium Chloride 0.9% 10 Ml Flush Syringe IV 10 ml BID MARSHALL Administration Sodium Chloride 10 ml 08/14/20 15:42 Sodium Chloride 0.9% 10 Ml Flush Syringe IV PRN PRN LINE FLUSH Nutrition/Malnutrition Assess - Dietary Evaluation Nutrition/Malnutrition Findings: Nutrition Notes Start: 08/15/20 14:08 Freq: Status: Active Protocol: Document 08/15/20 14:08 CW (Rec: 08/15/20 14:13 CW [email or web address]) Co-Sign 08/15/20 14:08 LP Nutrition Notes Need for Assessment generated from: MD Order Initial or Follow up Assessment Current Diagnosis Sepsis Other Pertinent Diagnosis AMS, UTI, hypotension, wound infection Current Diet regular diet Labs/Tests Na 156 BUN 50 BG 107 Pertinent Medications Levophed Height 6 ft Weight 83.915 kg [place] Body Weight (kg) 80.90 BMI 25.0 Weight Status Appropriate Subjective/Other Information MD order for diet education. Pt is on hold in ED. Per chart , no intakes recorded and pt has wounds. #1 Nutrition Diagnosis Increased nutrient needs ( specify in comment below) Comments: protein Etiology wound healing As Evidenced by Signs and Symptoms buttock and foot wound infection Is patient on ventilator? No Is Patient Ambulatory and/or Out of Bed No REE-([facility]-confined to bed) [phone] Calculation Used for Recommendations [facility] Additional Notes Protein needs are 1.25-1.5g/ kcal ABW (105-125g/day) Fluid needs are 1ml/kcal Nutrition Intervention Change Diet Order: continue current Goal #1 Meet at least 75% energy and protein needs Goal #2 Wound healing Anticipated Discharge Needs: Unable to determine at this time Follow-Up By: 08/19/20 Additional Comments FU for diet education needs, intakes, wounds
[2020-08-18] MEDS ORDERED: POTASSIUM PHOSPHATE 40 MMOL in SODIUM CHLORIDE 0.9% 500 ML 500 ML IV ONE (19:00)
[2020-08-18] MEDS: POTASSIUM CHLORIDE ER 20 MEQ TAB PO SCH ×2 (20:28→22:45)
[2020-08-19] MEDS: CEFEPIME/NS 2 GM/100 ML 2 GM/100 ML BAG IV SCH ×3 (02:00→17:34)
[2020-08-19] MEDS: MORPHINE 2 MG/1 ML INJ IV PRN ×3 (05:20→21:08)
[2020-08-19] MEDS: ONDANSETRON 4 MG/2 ML INJ IV PRN (06:04)
[2020-08-19 07:59] LABS: Basophils % (Auto) 0.2 % (0.0-1.8); Eosinophils # (Auto) 0.1 K/mm3 (0.0-0.4); Eosinophils % (Auto) 0.9 % (0.0-4.3); Hematocrit 26.9 % (35.5-45.6); Lymphocytes # (Auto) 1.6 K/mm3 (1.2-5.4); Mean Corpuscular HGB Conc 33 % (32-34); Mean Corpuscular Volume 90 fl (84-94); Monocytes # (Auto) 0.6 K/mm3 (0.0-0.8); Platelet Count 181 K/mm3 (140-440); Red Blood Count 2.98 M/mm3 (3.65-5.03); Red Cell Distribution Width 13.3 % (13.2-15.2)
[2020-08-19 08:20] LABS: Blood Urea Nitrogen 7 mg/dL (9-20); Calcium 6.7 mg/dL (8.4-10.2); Hemolysis Index 3
[2020-08-19] MEDS ORDERED: METOPROLOL TARTRATE 5 MG/5 ML INJ IV ONE (08:38)
[2020-08-19 08:39] LABS: BUN/Creatinine Ratio 14
--- NOTE | 2020-08-19 09:19 | Progress Note ---
Assessment and Plan Assessment and plan: ----dysphagia Patient is tolerating medications Nurse reports that patient is not able to tolerate Liquids or food. NG tube placement, tube feeding per protocol Speech therapy evaluation --Severe hypokalemia; potassium 3.0 Ireplenish with p.o. KCl monitor Closely monitor electrolytes --Hypomagnesemia/1.2 replenish with IV magnesium sulfate 4 g Closely monitor electrolytes --Hypophosphatemia 2.2 Replenish with Neutra-Phos oral Closely monitor electrolytes -- Septic shock/remains on Levophed Current Visit: Yes Status: Acute Plan to address problem: On Levophed , titrate systolic blood pressures to more than 100 UTI and infected heel, continue antibiotics IV fluids, Blood cultures-no growth --Leukocytosis/sepsis Current Visit: Yes Status: Acute Plan to address problem: White count trending down, continue empiric antibiotics -- Acute hypernatremia Current Visit: Yes Status: Acute . Plan to address problem: Significant improvement Sodium levels within normal limits Closely monitor electrolytes --Acute renal failure/vasomotor nephropathy Current Visit: Yes Status: Acute Plan to address problem: Resolved, normal renal function Avoid nephrotoxin --UTI (urinary tract infection) Current Visit: Yes Status: Acute Plan to address problem: Continue empiric antibiotics, follow cultures --Chronic sacral wound Current Visit: Yes Status: Acute Plan to address problem: wound care, continue IV antibiotics, follow cultures. --Severe protein calorie malnutrition; Current Visit: Yes Status: Acute Plan to address problem: Nutrition supplements, Ensure plus Dietitian following, encourage oral intake Tube feeding as needed --DVT prophylaxis Current Visit: Yes Status: Acute Plan to address problem: Subcu heparin --Full code status Current Visit: Yes Status: Acute Plan to address problem: Patient is a full code. We will closely monitor the patient and adjust management as needed Plan of care reviewed with the patient and his nurse The high probability of a clinically significant, sudden or life threatening deterioration of the [MULTIPLE ORGAN] system(s) required my full and direct attention, intervention and personal management. The aggregate critical care time was [33 ] minutes. This time is in addition to time spent performing reported procedures but includes the following: [X] Data Review and interpretation [X] Patient assessment and monitoring of vital signs [X] Documentation [X] Medication orders and management Brief history and hospital course; 75-year-old male resident of a senior living brought into the emergency room for evaluation of changes in mental status and low blood pressure. Upon arrival in the emergency room blood pressure was found to be 70s systolic and 30s diastolic, tachycardic in the 160s. Patient was subsequently placed on IV fluid with improvement in his blood pressure and mentation. He denies any chest pain or shortness of breath, no nausea or vomiting, no diarrhea, no headache or dizziness, no hematuria or dysuria. Patient indicates that he has not been able to walk because he was diagnosed with spondylosis and multiple bulging disc. Work-up today reveals a leukocytosis of 22, lactic acid of 4.9, sodium of 152. He also had elevated BUN and creatinine. Urinalysis reveals UTI. Patient has been admitted for dehydration, sepsis secondary to UTI. 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 and functional manager following 08/19/2020; multiple electrolyte abnormalities, hypomagnesemia, hypophosphatemia, hypokalemia, replenish per protocol Patient remains in septic shock, on Levophed, patient is critically ill NG tube placement, tube feeds per protocol History Interval history: I have seen and examined the patient at the bedside Patient is refusing to eat, nurse reports that patient has some cough while eating or drinking However he is tolerating medications with applesauce Vital signs noted Multiple electrolyte abnormalities on labs today Hospitalist Physical - Constitutional Vitals: Temp Pulse Resp BP Pulse Ox 97.5 F L 69 19 144/65 72 L 08/18/20 00:28 08/19/20 09:00 08/19/20 09:00 08/19/20 09:00 08/19/20 09:00 General appearance: Present: no acute distress, well-nourished, other (Patient is unable to tolerate oral liquids, or diet, nurse says that patient is tolerating meds) - EENT Eyes: Present: PERRL, EOM intact - Neck Neck: Present: supple, normal ROM - Cardiovascular Rhythm: regular Heart Sounds: Present: S1 & S2 - Extremities Extremities: no ischemia, abnormal (Heel infection) - Abdominal General gastrointestinal: soft, non-tender, non-distended, normal bowel sounds - Integumentary Integumentary: Present: clear, warm - Psychiatric Psychiatric: appropriate mood/affect, cooperative - Neurologic Neurologic: moves all extremities HEART Score - HEART Score Troponin: Troponin T 0.034 ng/mL (0.00-0.029) H 08/14/20 11:02 Results - Labs CBC & Chem 7: 08/19/20 07:12 08/19/20 07:12 Labs: Laboratory Last Values WBC 12.0 K/mm3 (4.5-11.0) H 08/19/20 07:12 RBC 2.98 M/mm3 (3.65-5.03) L 08/19/20 07:12 Hgb 9.0 gm/dl (11.8-15.2) L 08/19/20 07:12 Hct 26.9 % (35.5-45.6) L 08/19/20 07:12 MCV 90 fl (84-94) 08/19/20 07:12 MCH 30 pg (28-32) 08/19/20 07:12 MCHC 33 % (32-34) 08/19/20 07:12 RDW 13.3 % (13.2-15.2) 08/19/20 07:12 Plt Count 181 K/mm3 (140-440) 08/19/20 07:12 Lymph % (Auto) 13.0 % (13.4-35.0) L 08/19/20 07:12 Clinch % (Auto) 5.0 % (0.0-7.3) 08/19/20 07:12 Eos % (Auto) 0.9 % (0.0-4.3) 08/19/20 07:12 Baso % (Auto) 0.2 % (0.0-1.8) 08/19/20 07:12 Lymph # (Auto) 1.6 K/mm3 (1.2-5.4) 08/19/20 07:12 Clinch # (Auto) 0.6 K/mm3 (0.0-0.8) 08/19/20 07:12 Eos # (Auto) 0.1 K/mm3 (0.0-0.4) 08/19/20 07:12 Baso # (Auto) 0.0 K/mm3 (0.0-0.1) 08/19/20 07:12 Add Manual Diff Complete 08/18/20 16:49 Total Counted 100 08/18/20 16:49 Seg Neutrophils % 80.9 % (40.0-70.0) H 08/19/20 07:12 Seg Neuts % (Manual) 78.0 % (40.0-70.0) H 08/18/20 16:49 Band Neutrophils % 5.0 % 08/15/20 14:22 Lymphocytes % (Manual) 16.0 % (13.4-35.0) 08/18/20 16:49 Monocytes % (Manual) 5.0 % (0.0-7.3) 08/18/20 16:49 Eosinophils % (Manual) 1.0 % (0.0-4.3) 08/18/20 16:49 Metamyelocytes % 1.0 % 08/15/20 14:22 Nucleated RBC % Not Reportable 08/18/20 16:49 Seg Neutrophils # 9.7 K/mm3 (1.8-7.7) H 08/19/20 07:12 Seg Neutrophils # Man 10.1 K/mm3 (1.8-7.7) H 08/18/20 16:49 Band Neutrophils # 0.0 K/mm3 08/18/20 16:49 Lymphocytes # (Manual) 2.1 K/mm3 (1.2-5.4) 08/18/20 16:49 Abs React Lymphs (Man) 0.0 K/mm3 08/18/20 16:49 Monocytes # (Manual) 0.7 K/mm3 (0.0-0.8) 08/18/20 16:49 Eosinophils # (Manual) 0.1 K/mm3 (0.0-0.4) 08/18/20 16:49 Basophils # (Manual) 0.0 K/mm3 (0.0-0.1) 08/18/20 16:49 Metamyelocytes # 0.0 K/mm3 08/18/20 16:49 Myelocytes # 0.0 K/mm3 08/18/20 16:49 Promyelocytes # 0.0 K/mm3 08/18/20 16:49 Blast Cells # 0.0 K/mm3 08/18/20 16:49 WBC Morphology Not Reportable 08/18/20 16:49 Hypersegmented Neuts Not Reportable 08/18/20 16:49 Hyposegmented Neuts Not Reportable 08/18/20 16:49 Hypogranular Neuts Not Reportable 08/18/20 16:49 Smudge Cells Not Reportable 08/18/20 16:49 Toxic Granulation Not Reportable 08/18/20 16:49 Toxic Vacuolation Not Reportable 08/18/20 16:49 Dohle Bodies Not Reportable 08/18/20 16:49 Pelger-Huet Anomaly Not Reportable 08/18/20 16:49 Kassi Rods Not Reportable 08/18/20 16:49 Platelet Estimate Not Reportable 08/18/20 16:49 Clumped Platelets Not Reportable 08/18/20 16:49 Plt Clumps, EDTA Not Reportable 08/18/20 16:49 Large Platelets Not Reportable 08/18/20 16:49 Giant Platelets Not Reportable 08/18/20 16:49 Platelet Satelliting Not Reportable 08/18/20 16:49 Plt Morphology Comment Not Reportable 08/18/20 16:49 RBC Morphology Not Reportable 08/18/20 16:49 Dimorphic RBCs Not Reportable 08/18/20 16:49 Polychromasia Not Reportable 08/18/20 16:49 Hypochromasia Not Reportable 08/18/20 16:49 Poikilocytosis Not Reportable 08/18/20 16:49 Anisocytosis 1+ 08/18/20 16:49 Microcytosis Few 08/18/20 16:49 Macrocytosis Not Reportable 08/18/20 16:49 Spherocytes Not Reportable 08/18/20 16:49 Pappenheimer Bodies Not Reportable 08/18/20 16:49 Sickle Cells Not Reportable 08/18/20 16:49 Target Cells Not Reportable 08/18/20 16:49 Tear Drop Cells Not Reportable 08/18/20 16:49 Ovalocytes Not Reportable 08/18/20 16:49 Helmet Cells Not Reportable 08/18/20 16:49 [place] Bodies Not Reportable 08/18/20 16:49 [place] Rings Not Reportable 08/18/20 16:49 [place] Cells Not Reportable 08/18/20 16:49 Bite Cells Not Reportable 08/18/20 16:49 Crenated Cell Not Reportable 08/18/20 16:49 Elliptocytes Not Reportable 08/18/20 16:49 Acanthocytes (Spur) Not Reportable 08/18/20 16:49 Rouleaux Not Reportable 08/18/20 16:49 Hemoglobin C Crystals Not Reportable 08/18/20 16:49 Schistocytes Not Reportable 08/18/20 16:49 Malaria parasites Not Reportable 08/18/20 16:49 Richard Bodies Not Reportable 08/18/20 16:49 Hem Pathologist Commnt No 08/18/20 16:49 PT 15.4 Sec. (12.2-14.9) H 08/15/20 05:37 INR 1.24 (0.87-1.13) H 08/15/20 05:37 Sodium 145 mmol/L (137-145) 08/19/20 07:12 Potassium 3.0 mmol/L (3.6-5.0) L D 08/19/20 07:12 Chloride 108.5 mmol/L (98-107) H 08/19/20 07:12 Carbon Dioxide 25 mmol/L (22-30) 08/19/20 07:12 Anion Gap 15 mmol/L 08/19/20 07:12 BUN 7 mg/dL (9-20) L 08/19/20 07:12 Creatinine 0.5 mg/dL (0.8-1.3) L 08/19/20 07:12 Estimated GFR > 60 ml/min 08/19/20 07:12 BUN/Creatinine Ratio 14 % 08/19/20 07:12 Glucose 105 mg/dL (75-100) H 08/19/20 07:12 POC Glucose 76 mg/dL (70-105) 08/16/20 00:04 Lactic Acid 1.50 mmol/L (0.7-2.0) 08/14/20 18:37 Calcium 6.7 mg/dL (8.4-10.2) L 08/19/20 07:12 Phosphorus 2.20 mg/dL (2.5-4.5) L D 08/19/20 07:12 Magnesium 1.20 mg/dL (1.7-2.3) L 08/19/20 07:12 Total Bilirubin < 0.20 mg/dL (0.1-1.2) 08/16/20 05:20 Direct Bilirubin < 0.2 mg/dL (0-0.2) 08/16/20 05:20 Indirect Bilirubin 0.0 mg/dL 08/16/20 05:20 AST 20 units/L (5-40) 08/16/20 05:20 ALT 11 units/L (7-56) 08/16/20 05:20 Alkaline Phosphatase 56 units/L (35-129) 08/16/20 05:20 Total Creatine Kinase 177 units/L (55-170) H 08/15/20 14:22 Troponin T 0.034 ng/mL (0.00-0.029) H 08/14/20 11:02 Total Protein 6.2 g/dL (6.3-8.2) L D 08/16/20 05:20 Albumin 2.5 g/dL (3.9-5) L 08/16/20 05:20 Albumin/Globulin Ratio 0.7 % 08/16/20 05:20 Triglycerides 370 mg/dL (2-149) H 08/14/20 11:02 Cholesterol 243 mg/dL (50-199) H 08/14/20 11:02 LDL Cholesterol Direct 130 mg/dL (50-130) 08/14/20 11:02 HDL Cholesterol 34 mg/dL (40-59) L 08/14/20 11:02 Cholesterol/HDL Ratio 7.14 % 08/14/20 11:02 Urine Color Yellow (Yellow) 08/14/20 13:25 Urine Turbidity Turbid (Clear) 08/14/20 13:25 Urine pH 5.0 (5.0-7.0) 08/14/20 13:25 Ur Specific [place] 1.020 (1.003-1.030) 08/14/20 13:25 Urine Protein 100 mg/dl mg/dL (Negative) 08/14/20 13:25 Urine Glucose (UA) Neg mg/dL (Negative) 08/14/20 13:25 Urine Ketones Tr mg/dL (Negative) 08/14/20 13:25 Urine Blood Mod (Negative) 08/14/20 13:25 Urine Nitrite Neg (Negative) 08/14/20 13:25 Urine Bilirubin Neg (Negative) 08/14/20 13:25 Urine Urobilinogen 2.0 mg/dL (<2.0) 08/14/20 13:25 Ur Leukocyte Esterase Mod (Negative) 08/14/20 13:25 Urine WBC (Auto) > 182.0 /HPF (0.0-6.0) H 08/14/20 13:25 Urine RBC (Auto) 56.0 /HPF (0.0-6.0) 08/14/20 13:25 U Epithel Cells (Auto) 2.0 /HPF (0-13.0) 08/14/20 13:25 Urine Bacteria (Auto) 3+ /HPF (Negative) 08/14/20 13:25 Urine WBC Clumps 3+ /HPF 08/14/20 13:25 Urine Mucus 2+ /HPF 08/14/20 13:25 Urine Creatinine 35.9 mg/dL (0.1-20.0) H 08/15/20 22:12 Urine Creatinine 36.0 mg/dL (0.1-20.0) H 08/15/20 22:12 Protein/Creatinin Ratio 3.20 08/15/20 22:12 Urine Sodium 77 mmol/L 08/15/20 22:12 Urine Total Protein 115 mg/dL (5-11.8) H 08/15/20 22:12 Vancomycin Trough 8.9 ug/mL (5.0-20.0) 08/16/20 16:48 Microbiology: Microbiology 08/14/20 11:02 Peripheral/Venous Blood Culture - Preliminary NO GROWTH AFTER 4 DAYS 08/14/20 11:02 Peripheral/Venous Blood Culture - Preliminary NO GROWTH AFTER 4 DAYS Rivas/IV: Voiding Method Indwelling Catheter IV Catheter Type [Left INT / Saline Lock Antecubital] Active Medications - Current Medications Current Medications: Generic Name Dose Route Start Last Admin Trade Name Freq PRN Reason Stop Dose Admin Carbamazepine 200 mg 08/15/20 14:00 08/18/20 20:44 Carbamazepine 200 Mg Tab PO 200 mg TID MARSHALL Administration Folic Acid 1 mg 08/15/20 10:00 08/18/20 10:09 Folic Acid 1 Mg Tab PO 1 mg QDAY MARSHALL Administration Heparin Sodium (Porcine) 5,000 unit 08/14/20 22:00 08/18/20 22:44 Heparin 5,000 Unit/1 Ml Vial SUB-Q 5,000 unit Q8HR MARSHALL Administration Norepinephrine 4 mg in 250 mls @ 7.5 mls/hr 08/15/20 02:00 08/18/20 13:05 Levophed Drip 4 Mg/Ns 250 Ml IV 4 mcg/min TITR MARSHALL 15 mls/hr Administration Protocol 2 MCG/MIN Cefepime HCl 2 gm in 100 mls @ 200 mls/hr 08/15/20 10:00 08/19/20 02:00 Cefepime/Ns 2 Gm/100 Ml IV 200 mls/hr Q8H MARSHALL Administration Protocol Sodium Chloride 1,000 mls @ 125 mls/hr 08/15/20 11:00 08/18/20 11:22 Nacl 0.45% 1000 Ml IV 125 mls/hr DIRECT MARSHALL Administration Vancomycin HCl 1,250 mg/ 275 mls @ 166.667 mls/hr 08/17/20 09:00 08/18/20 22:43 Sodium Chloride IV 166.667 mls/hr Q12H MARSHALL Administration Sodium Chloride 1,000 mls @ 125 mls/hr 08/17/20 18:00 08/18/20 20:43 Nacl 0.45% 1000 Ml IV 125 mls/hr DIRECT MARSHALL Administration Magnesium Hydroxide 30 ml 08/14/20 15:42 Magnesium Hydroxide (Mom) Oral Liqd Udc PO Q4H PRN Constipation Midodrine 2.5 mg 08/16/20 08:00 08/18/20 16:18 Midodrine 2.5 Mg Tab PO 2.5 mg TID@0800,1200,1600 MARSHALL Administration Morphine Sulfate 2 mg 08/15/20 17:57 08/19/20 06:11 Morphine 2 Mg/1 Ml Inj IV 2 mg Q6H PRN Administration Pain, Moderate (4-6) Ondansetron HCl 4 mg 08/14/20 15:42 08/19/20 06:04 Ondansetron 4 Mg/2 Ml Inj IV 4 mg Q8H PRN Administration Nausea And Vomiting Primidone 250 mg 08/15/20 14:00 08/18/20 20:44 Primidone 250 Mg Tab PO 250 mg TID MARSHALL Administration Sodium Bicarbonate 650 mg 08/16/20 20:00 08/18/20 20:44 Sodium Bicarbonate 650 Mg Tab PO 650 mg TID MARSHALL Administration Sodium Chloride 10 ml 08/14/20 22:00 08/18/20 22:45 Sodium Chloride 0.9% 10 Ml Flush Syringe IV 10 ml BID MARSHALL Administration Sodium Chloride 10 ml 08/14/20 15:42 Sodium Chloride 0.9% 10 Ml Flush Syringe IV PRN PRN LINE FLUSH Nutrition/Malnutrition Assess - Dietary Evaluation Nutrition/Malnutrition Findings: Nutrition Notes Start: 08/15/20 14:08 Freq: Status: Active Protocol: Document 08/15/20 14:08 CW (Rec: 08/15/20 14:13 CW [email or web address]) Co-Sign 08/15/20 14:08 LP Nutrition Notes Need for Assessment generated from: MD Order Initial or Follow up Assessment Current Diagnosis Sepsis Other Pertinent Diagnosis AMS, UTI, hypotension, wound infection Current Diet regular diet Labs/Tests Na 156 BUN 50 BG 107 Pertinent Medications Levophed Height 6 ft Weight 83.915 kg [place] Body Weight (kg) 80.90 BMI 25.0 Weight Status Appropriate Subjective/Other Information MD order for diet education. Pt is on hold in ED. Per chart , no intakes recorded and pt has wounds. #1 Nutrition Diagnosis Increased nutrient needs ( specify in comment below) Comments: protein Etiology wound healing As Evidenced by Signs and Symptoms buttock and foot wound infection Is patient on ventilator? No Is Patient Ambulatory and/or Out of Bed No REE-([facility]-confined to bed) [phone] Calculation Used for Recommendations [facility] Additional Notes Protein needs are 1.25-1.5g/ kcal ABW (105-125g/day) Fluid needs are 1ml/kcal Nutrition Intervention Change Diet Order: continue current Goal #1 Meet at least 75% energy and protein needs Goal #2 Wound healing Anticipated Discharge Needs: Unable to determine at this time Follow-Up By: 08/19/20 Additional Comments FU for diet education needs, intakes, wounds
--- NOTE | 2020-08-19 09:43 | Progress Note ---
Assessment and Plan Septic shock Acute hypernatremia Acute renal failure UTI (urinary tract infection) Acidosis Plan: FAZAL resolved hypernatremia resolved Was on bicarb tabs Strict I&O's daily Obtain daily weights Avoid nephrotoxins Renally dose medications Continue to monitor will sign off, please reconsult if needed Subjective Date of service: 08/19/20 Principal diagnosis: FAZAL Interval history: no overnight events Objective - Vital Signs Vital signs: Vital Signs - 12hr 08/18/20 08/18/20 08/18/20 21:46 22:00 22:16 Pulse Rate 59 L 58 L 58 L Respiratory 14 15 15 Rate Blood Pressure 93/66 93/66 98/74 O2 Sat by Pulse 99 97 97 Oximetry 08/18/20 08/18/20 08/18/20 22:30 22:46 22:48 Pulse Rate 56 L 64 60 Respiratory 12 14 17 Rate Blood Pressure 98/74 137/65 137/65 O2 Sat by Pulse 99 99 98 Oximetry 08/18/20 08/18/20 08/18/20 23:00 23:16 23:30 Pulse Rate 55 L 60 57 L Respiratory 11 L 18 15 Rate Blood Pressure 147/62 147/62 143/65 O2 Sat by Pulse 99 98 99 Oximetry 08/18/20 08/19/20 08/19/20 23:45 00:00 00:16 Pulse Rate 56 L 59 L 61 Respiratory 17 12 15 Rate Blood Pressure 143/65 140/62 140/62 O2 Sat by Pulse 99 96 98 Oximetry 08/19/20 08/19/20 08/19/20 00:30 00:46 01:00 Pulse Rate 59 L 58 L 57 L Respiratory 18 14 16 Rate Blood Pressure 130/63 130/63 135/61 O2 Sat by Pulse 96 98 96 Oximetry 08/19/20 08/19/20 08/19/20 01:16 01:30 01:45 Pulse Rate 57 L 58 L 82 Respiratory 17 16 19 Rate Blood Pressure 135/61 137/60 102/50 O2 Sat by Pulse 99 98 97 Oximetry 08/19/20 08/19/20 08/19/20 02:00 02:16 02:30 Pulse Rate 87 59 L 59 L Respiratory 16 18 14 Rate Blood Pressure 99/52 100/52 107/59 O2 Sat by Pulse 98 97 Oximetry 08/19/20 08/19/20 08/19/20 02:46 03:00 03:15 Pulse Rate 60 88 67 Respiratory 18 16 17 Rate Blood Pressure 140/68 140/68 139/70 O2 Sat by Pulse 94 98 99 Oximetry 08/19/20 08/19/20 08/19/20 03:31 03:46 04:00 Pulse Rate 55 L 67 Respiratory 16 17 Rate Blood Pressure 121/67 121/67 148/72 O2 Sat by Pulse 97 99 99 Oximetry 08/19/20 08/19/20 08/19/20 04:15 04:30 04:45 Pulse Rate 56 L 61 75 Respiratory 16 16 14 Rate Blood Pressure 159/79 156/75 134/78 O2 Sat by Pulse 98 98 99 Oximetry 08/19/20 08/19/20 08/19/20 05:01 05:15 05:31 Pulse Rate 61 60 58 L Respiratory 17 15 20 Rate Blood Pressure 165/64 165/64 165/64 O2 Sat by Pulse 97 99 98 Oximetry 08/19/20 08/19/20 08/19/20 05:45 06:00 06:15 Pulse Rate 61 84 74 Respiratory 20 19 19 Rate Blood Pressure 165/64 116/60 124/60 O2 Sat by Pulse 97 98 96 Oximetry 08/19/20 08/19/20 08/19/20 06:30 07:00 07:31 Pulse Rate 70 60 59 L Respiratory 17 16 14 Rate Blood Pressure 135/62 123/55 141/67 O2 Sat by Pulse 97 96 98 Oximetry 08/19/20 08/19/20 08/19/20 08:00 08:30 09:00 Pulse Rate 60 63 69 Respiratory 17 18 19 Rate Blood Pressure 144/64 108/66 144/65 O2 Sat by Pulse 95 97 72 L Oximetry - Lab 08/19/20 07:12 08/19/20 07:12 Most recent lab results Calcium 6.7 mg/dL (8.4-10.2) L 08/19/20 07:12 Phosphorus 2.20 mg/dL (2.5-4.5) L D 08/19/20 07:12 Magnesium 1.20 mg/dL (1.7-2.3) L 08/19/20 07:12 Urine Creatinine 35.9 mg/dL (0.1-20.0) H 08/15/20 22:12 Urine Creatinine 36.0 mg/dL (0.1-20.0) H 08/15/20 22:12 Urine Sodium 77 mmol/L 08/15/20 22:12 Urine Total Protein 115 mg/dL (5-11.8) H 08/15/20 22:12 Medications & Allergies - Medications Allergies/Adverse Reactions: Allergies No Known Allergies Allergy (Verified 01/10/19 02:20) Home Medications: Home Medications Medication Instructions Recorded Confirmed Last Taken Type Folic Acid [Folvite] 1 mg PO QDAY 01/10/19 08/14/20 Unknown History Primidone [Mysoline] 250 mg PO TID 01/10/19 08/14/20 Unknown History carBAMazepine [Carbamazepine] 200 mg PO TID 01/10/19 08/14/20 Unknown History oxyCODONE /ACETAMINOPHEN [Percocet 1 tab PO Q6H PRN #14 tablet 01/12/19 08/14/20 Unknown Rx 5/325 mg] Aspirin [Aspirin BABY CHEW TAB] 81 mg PO QDAY 08/15/20 08/15/20 Unknown History AtorvaSTATin [Lipitor] 40 mg PO QHS 08/15/20 08/15/20 Unknown History Citalopram Hydrobromide 20 mg PO QDAY 08/15/20 08/15/20 Unknown History [Citalopram HBr] Ergocalciferol [Vitamin D2] 1 cap PO QWEEK 08/15/20 08/15/20 Unknown History Folic Acid [Folvite] 1 mg PO QDAY 08/15/20 08/15/20 Unknown History Midodrine [Proamatine] 2.5 mg PO BID 08/15/20 08/15/20 Unknown History Mirtazapine 7.5 mg PO QHS 08/15/20 08/15/20 Unknown History guaiFENesin ER [Mucinex ER] 600 mg PO Q12H 08/15/20 08/15/20 Unknown History oxyCODONE /ACETAMINOPHEN [Percocet 1 tab PO Q6HR PRN 08/15/20 08/15/20 Unknown History 5/325] tiZANidine [Zanaflex 4mg TAB] 4 mg PO BID 08/15/20 08/15/20 Unknown History Active Medications: Generic Name Dose Route Start Last Admin Trade Name Freq PRN Reason Stop Dose Admin Carbamazepine 200 mg 08/15/20 14:00 08/18/20 20:44 Carbamazepine 200 Mg Tab PO 200 mg TID MARSHALL Administration Folic Acid 1 mg 08/15/20 10:00 08/18/20 10:09 Folic Acid 1 Mg Tab PO 1 mg QDAY MARSHALL Administration Heparin Sodium (Porcine) 5,000 unit 08/14/20 22:00 08/18/20 22:44 Heparin 5,000 Unit/1 Ml Vial SUB-Q 5,000 unit Q8HR MARSHALL Administration Norepinephrine 4 mg in 250 mls @ 7.5 mls/hr 08/15/20 02:00 08/18/20 13:05 Levophed Drip 4 Mg/Ns 250 Ml IV 4 mcg/min TITR MARSHALL 15 mls/hr Administration Protocol 2 MCG/MIN Cefepime HCl 2 gm in 100 mls @ 200 mls/hr 08/15/20 10:00 08/19/20 02:00 Cefepime/Ns 2 Gm/100 Ml IV 200 mls/hr Q8H MARSHALL Administration Protocol Vancomycin HCl 1,250 mg/ 275 mls @ 166.667 mls/hr 08/17/20 09:00 08/18/20 22:43 Sodium Chloride IV 166.667 mls/hr Q12H MARSHALL Administration Sodium Chloride 1,000 mls @ 125 mls/hr 08/17/20 18:00 08/18/20 20:43 Nacl 0.45% 1000 Ml IV 125 mls/hr DIRECT MARSHALL Administration Magnesium Sulfate 4 gm in 100 mls @ 25 mls/hr 08/19/20 10:00 Magnesium Sulfate 4gm/100ml IV 08/19/20 13:59 ONCE ONE Magnesium Hydroxide 30 ml 08/14/20 15:42 Magnesium Hydroxide (Mom) Oral Liqd Udc PO Q4H PRN Constipation Midodrine 2.5 mg 08/16/20 08:00 08/18/20 16:18 Midodrine 2.5 Mg Tab PO 2.5 mg TID@0800,1200,1600 MARSHALL Administration Morphine Sulfate 2 mg 08/15/20 17:57 08/19/20 06:11 Morphine 2 Mg/1 Ml Inj IV 2 mg Q6H PRN Administration Pain, Moderate (4-6) Ondansetron HCl 4 mg 08/14/20 15:42 08/19/20 06:04 Ondansetron 4 Mg/2 Ml Inj IV 4 mg Q8H PRN Administration Nausea And Vomiting Potassium Chloride 40 meq 08/19/20 10:00 Potassium Chloride 20 Meq Packet PO 08/19/20 13:01 Q3H MARSHALL Primidone 250 mg 08/15/20 14:00 08/18/20 20:44 Primidone 250 Mg Tab PO 250 mg TID MARSHALL Administration Sodium Bicarbonate 650 mg 08/16/20 20:00 08/18/20 20:44 Sodium Bicarbonate 650 Mg Tab PO 650 mg TID MARSHALL Administration Sodium Chloride 10 ml 08/14/20 22:00 08/18/20 22:45 Sodium Chloride 0.9% 10 Ml Flush Syringe IV 10 ml BID MARSHALL Administration Sodium Chloride 10 ml 08/14/20 15:42 Sodium Chloride 0.9% 10 Ml Flush Syringe IV PRN PRN LINE FLUSH
[2020-08-19] MEDS: VANCOMYCIN 1,250 MG in SODIUM CHLORIDE 0.9% 250ML 250 ML IV SCH ×2 (09:46→21:04)
[2020-08-19] MEDS: SODIUM BICARBONATE 650 MG TAB PO SCH ×3 (09:46→21:05)
[2020-08-19] MEDS: MIDODRINE 2.5 MG TAB PO SCH ×3 (09:46→16:51)
[2020-08-19] MEDS: carBAMazepine 200 MG TAB PO SCH ×3 (09:46→21:05)
[2020-08-19] MEDS: PRIMIDONE 250 MG TAB PO SCH ×3 (09:46→21:05)
[2020-08-19] MEDS: FOLIC ACID 1 MG TAB PO SCH (09:46)
[2020-08-19] MEDS: HEPARIN 5,000 UNIT/1 ML VIAL SUB-Q SCH ×3 (09:47→23:38)
[2020-08-19] MEDS ORDERED: MAGNESIUM SULFATE 4 GM/100 ML BAG IV ONE (10:00)
--- NOTE | 2020-08-19 12:41 | XRay Report ---
ABDOMEN 1 VIEW(S) INDICATION / CLINICAL INFORMATION: Gastric tube placement. COMPARISON: None available. FINDINGS: TUBES / LINES: The sidehole and distal tip of the nasogastric tube terminate in the fundus of the sto mach. Consider advancement by 5-10 cm to the distal stomach. BOWEL GAS PATTERN: No significant abnormality. FREE AIR / EXTRALUMINAL GAS: None seen. ADDITIONAL FINDINGS: No significant additional findings. IMPRESSION: Nasogastric tube as described. Otherwise unremarkable abdomen. Signer Name: David Gardner Jr, MD Signed: 08/19/2020 12:36 PM Workstation Name: [id number]
[2020-08-19] MEDS: PHOS-NAK POWDER PACKET PO SCH ×3 (14:33→23:39)
[2020-08-19] MEDS: NORepinephrine/NS 4 MG-250 ML 4 MG/250 ML BAG IV SCH (15:31)
[2020-08-19] MEDS ORDERED: LIPASE 10,500/PROTEASE 25,000/AMYLASE 43,750 (UNITS) DR CAP FEEDTUBE PRN (16:06)
[2020-08-19] MEDS ORDERED: SIMPLE SYRUP 15 ML FEEDTUBE PRN (16:06)
[2020-08-19] MEDS ORDERED: SODIUM BICARBONATE 325 MG TAB FEEDTUBE PRN (16:06)
[2020-08-19] MEDS: POTASSIUM CHLORIDE 20 MEQ PACKET PO SCH (16:48)
[2020-08-20] MEDS: MORPHINE 2 MG/1 ML INJ IV PRN (01:16)
[2020-08-20] MEDS: CEFEPIME/NS 2 GM/100 ML 2 GM/100 ML BAG IV SCH ×4 (01:41→23:55)
[2020-08-20] MEDS: PHOS-NAK POWDER PACKET PO SCH (06:12)
[2020-08-20] MEDS: HEPARIN 5,000 UNIT/1 ML VIAL SUB-Q SCH ×3 (06:12→22:18)
[2020-08-20 06:16] LABS: Hematocrit 28.4 % (35.5-45.6); Hemoglobin 9.4 gm/dl (11.8-15.2); Mean Corpuscular HGB Conc 33 % (32-34); Mean Corpuscular Volume 92 fl (84-94); Platelet Count 141 K/mm3 (140-440); Red Blood Count 3.09 M/mm3 (3.65-5.03); Red Cell Distribution Width 13.7 % (13.2-15.2)
[2020-08-20 06:32] LABS: Blood Urea Nitrogen 8 mg/dL (9-20); Calcium 6.3 mg/dL (8.4-10.2); Hemolysis Index 6
[2020-08-20 06:33] LABS: BUN/Creatinine Ratio 16
[2020-08-20] MEDS ORDERED: POTASSIUM CHLORIDE ER 20 MEQ TAB PO ONE (06:50)
[2020-08-20 07:27] LABS: Platelet Estimate Consistent w Auto; Total Cells Counted 100
--- NOTE | 2020-08-20 09:26 | Progress Note ---
Assessment and Plan Assessment and plan: Patient has persistent hypokalemia, hypomagnesemia, hypophosphatemia Not sure what the patient is receiving the therapies We will closely monitor, replenish electrolytes per protocol --dysphagia NG tube placement, tube feeding per protocol Medications via NG tube Speech therapy evaluation --Persistent hypokalemia; 2.5 today Potassium 3.0 yesterday , not sure whether the patient received KCl We will replenish per protocol Check magnesium, Closely monitor electrolytes --Hypomagnesemia 1.2 yesterday replenished with IV magnesium sulfate 4 g Magnesium level not done today, check mag --Hypophosphatemia 2.2-1.7 Received IV K-Phos yesterday We will recheck electrolytes -- Septic shock/remains on Levophed Current Visit: Yes Status: Acute Plan to address problem: On Levophed , titrate systolic blood pressures to more than 100 UTI and infected heel, continue antibiotics IV fluids, Blood cultures-no growth --Leukocytosis/sepsis Current Visit: Yes Status: Acute Plan to address problem: White count trending down, continue empiric antibiotics -- Acute hypernatremia Current Visit: Yes Status: Acute . Plan to address problem: Significant improvement Sodium levels within normal limits Closely monitor electrolytes --Acute renal failure/vasomotor nephropathy Current Visit: Yes Status: Acute Plan to address problem: Resolved, normal renal function Avoid nephrotoxin --Sepsis secondary to UTI (urinary tract infection) Current Visit: Yes Status: Acute Plan to address problem: Continue empiric antibiotics, follow cultures --Chronic sacral wound Current Visit: Yes Status: Acute Plan to address problem: wound care, continue IV antibiotics, follow cultures. --Severe protein calorie malnutrition; Current Visit: Yes Status: Acute Plan to address problem: Nutrition supplements, Ensure plus Dietitian following, encourage oral intake Tube feeding as needed --DVT prophylaxis Current Visit: Yes Status: Acute Plan to address problem: Subcu heparin --Full code status Current Visit: Yes Status: Acute Plan to address problem: Patient is a full code. We will closely monitor the patient and adjust management as needed Plan of care reviewed with the patient and his nurse The high probability of a clinically significant, sudden or life threatening deterioration of the [MULTIPLE ORGAN] system(s) required my full and direct attention, intervention and personal management. The aggregate critical care time was [33 ] minutes. This time is in addition to time spent performing reported procedures but includes the following: [X] Data Review and interpretation [X] Patient assessment and monitoring of vital signs [X] Documentation [X] Medication orders and management Brief history and hospital course; 75-year-old male resident of a custodial brought into the emergency room for evaluation of changes in mental status and low blood pressure. Upon arrival in the emergency room blood pressure was found to be 70s systolic and 30s diastolic, tachycardic in the 160s. Patient was subsequently placed on IV fluid with improvement in his blood pressure and mentation. He denies any chest pain or shortness of breath, no nausea or vomiting, no diarrhea, no headache or dizziness, no hematuria or dysuria. Patient indicates that he has not been able to walk because he was diagnosed with spondylosis and multiple bulging disc. Work-up today reveals a leukocytosis of 22, lactic acid of 4.9, sodium of 152. He also had elevated BUN and creatinine. Urinalysis reveals UTI. Patient has been admitted for dehydration, sepsis secondary to UTI. 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 following 08/19/2020; multiple electrolyte abnormalities, hypomagnesemia, hypophosphatemia, hypokalemia, replenish per protocol Patient remains in septic shock, on Levophed, patient is critically ill NG tube placement, tube feeds per protocol 08/20/2020; remains critically ill, septic shock on Levophed, sepsis secondary to UTI on cefepime and Vanco Cultures negative to date, persistent electrolyte abnormalities hypokalemia, hypophosphatemia, hypomagnesemia We will closely monitor electrolytes and adjust as needed History Interval history: I have seen and examined the patient at the bed side Patient's chart and medications reviewed Patient is critically ill septic shock on Levophed Cachectic and chronically ill looking Vital signs noted Multiple electrolyte abnormalities Hospitalist Physical - Constitutional Vitals: Temp Pulse Resp BP Pulse Ox 97.5 F L 60 10 L 126/63 97 08/18/20 00:28 08/20/20 08:54 08/20/20 08:30 08/20/20 08:30 08/20/20 08:30 General appearance: Present: mild distress, cachectic, other (Chronically ill looking) - EENT Eyes: Present: PERRL, EOM intact - Neck Neck: Present: supple, normal ROM - Respiratory Respiratory effort: normal Respiratory: bilateral: diminished, rhonchi, negative: rales, wheezing - Cardiovascular Rhythm: regular Heart Sounds: Present: S1 & S2 - Extremities Extremities: no ischemia, abnormal (Chronic wounds) - Abdominal General gastrointestinal: soft, non-tender, non-distended, normal bowel sounds - Integumentary Integumentary: Present: clear, warm - Psychiatric Psychiatric: appropriate mood/affect, cooperative - Neurologic Neurologic: moves all extremities HEART Score - HEART Score Troponin: Troponin T 0.034 ng/mL (0.00-0.029) H 08/14/20 11:02 Results - Labs CBC & Chem 7: 08/20/20 05:26 08/20/20 14:48 Labs: Laboratory Last Values WBC 8.6 K/mm3 (4.5-11.0) 08/20/20 05:26 RBC 3.09 M/mm3 (3.65-5.03) L 08/20/20 05:26 Hgb 9.4 gm/dl (11.8-15.2) L 08/20/20 05:26 Hct 28.4 % (35.5-45.6) L 08/20/20 05:26 MCV 92 fl (84-94) 08/20/20 05:26 MCH 30 pg (28-32) 08/20/20 05:26 MCHC 33 % (32-34) 08/20/20 05:26 RDW 13.7 % (13.2-15.2) 08/20/20 05:26 Plt Count 141 K/mm3 (140-440) 08/20/20 05:26 Lymph % (Auto) 13.0 % (13.4-35.0) L 08/19/20 07:12 [place] % (Auto) 5.0 % (0.0-7.3) 08/19/20 07:12 Eos % (Auto) 0.9 % (0.0-4.3) 08/19/20 07:12 Baso % (Auto) 0.2 % (0.0-1.8) 08/19/20 07:12 Lymph # (Auto) 1.6 K/mm3 (1.2-5.4) 08/19/20 07:12 [place] # (Auto) 0.6 K/mm3 (0.0-0.8) 08/19/20 07:12 Eos # (Auto) 0.1 K/mm3 (0.0-0.4) 08/19/20 07:12 Baso # (Auto) 0.0 K/mm3 (0.0-0.1) 08/19/20 07:12 Add Manual Diff Complete 08/20/20 05:26 Total Counted 100 08/20/20 05:26 Seg Neutrophils % 80.9 % (40.0-70.0) H 08/19/20 07:12 Seg Neuts % (Manual) 78.0 % (40.0-70.0) H 08/20/20 05:26 Band Neutrophils % 5.0 % 08/15/20 14:22 Lymphocytes % (Manual) 11.0 % (13.4-35.0) L 08/20/20 05:26 Monocytes % (Manual) 6.0 % (0.0-7.3) 08/20/20 05:26 Eosinophils % (Manual) 5.0 % (0.0-4.3) H 08/20/20 05:26 Metamyelocytes % 1.0 % 08/15/20 14:22 Nucleated RBC % Not Reportable 08/20/20 05:26 Seg Neutrophils # 9.7 K/mm3 (1.8-7.7) H 08/19/20 07:12 Seg Neutrophils # Man 6.7 K/mm3 (1.8-7.7) 08/20/20 05:26 Band Neutrophils # 0.0 K/mm3 08/20/20 05:26 Lymphocytes # (Manual) 0.9 K/mm3 (1.2-5.4) L 08/20/20 05:26 Abs React Lymphs (Man) 0.0 K/mm3 08/20/20 05:26 Monocytes # (Manual) 0.5 K/mm3 (0.0-0.8) 08/20/20 05:26 Eosinophils # (Manual) 0.4 K/mm3 (0.0-0.4) 08/20/20 05:26 Basophils # (Manual) 0.0 K/mm3 (0.0-0.1) 08/20/20 05:26 Metamyelocytes # 0.0 K/mm3 08/20/20 05:26 Myelocytes # 0.0 K/mm3 08/20/20 05:26 Promyelocytes # 0.0 K/mm3 08/20/20 05:26 Blast Cells # 0.0 K/mm3 08/20/20 05:26 WBC Morphology Not Reportable 08/20/20 05:26 Hypersegmented Neuts Not Reportable 08/20/20 05:26 Hyposegmented Neuts Not Reportable 08/20/20 05:26 Hypogranular Neuts Not Reportable 08/20/20 05:26 Smudge Cells Not Reportable 08/20/20 05:26 Toxic Granulation Not Reportable 08/20/20 05:26 Toxic Vacuolation Not Reportable 08/20/20 05:26 Dohle Bodies Not Reportable 08/20/20 05:26 Pelger-Huet Anomaly Not Reportable 08/20/20 05:26 Kassi Rods Not Reportable 08/20/20 05:26 Platelet Estimate Consistent w auto 08/20/20 05:26 Clumped Platelets Not Reportable 08/20/20 05:26 Plt Clumps, EDTA Not Reportable 08/20/20 05:26 Large Platelets Not Reportable 08/20/20 05:26 Giant Platelets Not Reportable 08/20/20 05:26 Platelet Satelliting Not Reportable 08/20/20 05:26 Plt Morphology Comment Not Reportable 08/20/20 05:26 RBC Morphology Not Reportable 08/20/20 05:26 Dimorphic RBCs Not Reportable 08/20/20 05:26 Polychromasia Not Reportable 08/20/20 05:26 Hypochromasia Not Reportable 08/20/20 05:26 Poikilocytosis Not Reportable 08/20/20 05:26 Anisocytosis Not Reportable 08/20/20 05:26 Microcytosis Not Reportable 08/20/20 05:26 Macrocytosis Not Reportable 08/20/20 05:26 Spherocytes Not Reportable 08/20/20 05:26 Pappenheimer Bodies Not Reportable 08/20/20 05:26 Sickle Cells Not Reportable 08/20/20 05:26 Target Cells Not Reportable 08/20/20 05:26 Tear Drop Cells Not Reportable 08/20/20 05:26 Ovalocytes Not Reportable 08/20/20 05:26 Helmet Cells Not Reportable 08/20/20 05:26 [place] Bodies Not Reportable 08/20/20 05:26 [place] Rings Not Reportable 08/20/20 05:26 [place] Cells Not Reportable 08/20/20 05:26 Bite Cells Not Reportable 08/20/20 05:26 Crenated Cell Not Reportable 08/20/20 05:26 Elliptocytes Not Reportable 08/20/20 05:26 Acanthocytes (Spur) Not Reportable 08/20/20 05:26 Rouleaux Not Reportable 08/20/20 05:26 Hemoglobin C Crystals Not Reportable 08/20/20 05:26 Schistocytes Not Reportable 08/20/20 05:26 Malaria parasites Not Reportable 08/20/20 05:26 Richard Bodies Not Reportable 08/20/20 05:26 Hem Pathologist Commnt No 08/20/20 05:26 PT 15.4 Sec. (12.2-14.9) H 08/15/20 05:37 INR 1.24 (0.87-1.13) H 08/15/20 05:37 Sodium 146 mmol/L (137-145) H 08/20/20 05:26 Potassium 2.5 mmol/L (3.6-5.0) L* 08/20/20 05:26 Chloride 109.6 mmol/L (98-107) H 08/20/20 05:26 Carbon Dioxide 31 mmol/L (22-30) H 08/20/20 05:26 Anion Gap 8 mmol/L 08/20/20 05:26 BUN 8 mg/dL (9-20) L 08/20/20 05:26 Creatinine 0.5 mg/dL (0.8-1.3) L 08/20/20 05:26 Estimated GFR > 60 ml/min 08/20/20 05:26 BUN/Creatinine Ratio 16 % 08/20/20 05:26 Glucose 113 mg/dL (75-100) H 08/20/20 05:26 POC Glucose 76 mg/dL (70-105) 08/16/20 00:04 Lactic Acid 1.50 mmol/L (0.7-2.0) 08/14/20 18:37 Calcium 6.3 mg/dL (8.4-10.2) L 08/20/20 05:26 Phosphorus 1.70 mg/dL (2.5-4.5) L D 08/20/20 05:26 Magnesium 1.20 mg/dL (1.7-2.3) L 08/19/20 07:12 Total Bilirubin < 0.20 mg/dL (0.1-1.2) 08/16/20 05:20 Direct Bilirubin < 0.2 mg/dL (0-0.2) 08/16/20 05:20 Indirect Bilirubin 0.0 mg/dL 08/16/20 05:20 AST 20 units/L (5-40) 08/16/20 05:20 ALT 11 units/L (7-56) 08/16/20 05:20 Alkaline Phosphatase 56 units/L (35-129) 08/16/20 05:20 Total Creatine Kinase 177 units/L (55-170) H 08/15/20 14:22 Troponin T 0.034 ng/mL (0.00-0.029) H 08/14/20 11:02 Total Protein 6.2 g/dL (6.3-8.2) L D 08/16/20 05:20 Albumin 2.5 g/dL (3.9-5) L 08/16/20 05:20 Albumin/Globulin Ratio 0.7 % 08/16/20 05:20 Triglycerides 370 mg/dL (2-149) H 08/14/20 11:02 Cholesterol 243 mg/dL (50-199) H 08/14/20 11:02 LDL Cholesterol Direct 130 mg/dL (50-130) 08/14/20 11:02 HDL Cholesterol 34 mg/dL (40-59) L 08/14/20 11:02 Cholesterol/HDL Ratio 7.14 % 08/14/20 11:02 Urine Color Yellow (Yellow) 08/14/20 13:25 Urine Turbidity Turbid (Clear) 08/14/20 13:25 Urine pH 5.0 (5.0-7.0) 08/14/20 13:25 Ur Specific [place] 1.020 (1.003-1.030) 08/14/20 13:25 Urine Protein 100 mg/dl mg/dL (Negative) 08/14/20 13:25 Urine Glucose (UA) Neg mg/dL (Negative) 08/14/20 13:25 Urine Ketones Tr mg/dL (Negative) 08/14/20 13:25 Urine Blood Mod (Negative) 08/14/20 13:25 Urine Nitrite Neg (Negative) 08/14/20 13:25 Urine Bilirubin Neg (Negative) 08/14/20 13:25 Urine Urobilinogen 2.0 mg/dL (<2.0) 08/14/20 13:25 Ur Leukocyte Esterase Mod (Negative) 08/14/20 13:25 Urine WBC (Auto) > 182.0 /HPF (0.0-6.0) H 08/14/20 13:25 Urine RBC (Auto) 56.0 /HPF (0.0-6.0) 08/14/20 13:25 U Epithel Cells (Auto) 2.0 /HPF (0-13.0) 08/14/20 13:25 Urine Bacteria (Auto) 3+ /HPF (Negative) 08/14/20 13:25 Urine WBC Clumps 3+ /HPF 08/14/20 13:25 Urine Mucus 2+ /HPF 08/14/20 13:25 Urine Creatinine 35.9 mg/dL (0.1-20.0) H 08/15/20 22:12 Urine Creatinine 36.0 mg/dL (0.1-20.0) H 08/15/20 22:12 Protein/Creatinin Ratio 3.20 08/15/20 22:12 Urine Sodium 77 mmol/L 08/15/20 22:12 Urine Total Protein 115 mg/dL (5-11.8) H 08/15/20 22:12 Vancomycin Trough 8.9 ug/mL (5.0-20.0) 08/16/20 16:48 Microbiology: Microbiology 08/18/20 Unknown Urine,[place] Urine Culture - Preliminary NO GROWTH AFTER 24 HOURS 08/14/20 11:02 Peripheral/Venous Blood Culture - Final NO GROWTH AFTER 5 DAYS 08/14/20 11:02 Peripheral/Venous Blood Culture - Final NO GROWTH AFTER 5 DAYS Rivas/IV: Voiding Method Indwelling Catheter IV Catheter Type [Left INT / Saline Lock Antecubital] Active Medications - Current Medications Current Medications: Generic Name Dose Route Start Last Admin Trade Name Freq PRN Reason Stop Dose Admin Lipase/Protease/Amylase 1 each 08/19/20 16:06 Lipase 10,500/Protease 25,000/Amylase 43,750 (Units) Dr Cap FEEDTUBE PRN PRN For Clogged Feeding Tube Carbamazepine 200 mg 08/15/20 14:00 08/19/20 21:05 Carbamazepine 200 Mg Tab PO 200 mg TID MARSHALL Administration Folic Acid 1 mg 08/15/20 10:00 08/19/20 09:46 Folic Acid 1 Mg Tab PO 1 mg QDAY MARSHALL Administration Heparin Sodium (Porcine) 5,000 unit 08/14/20 22:00 08/20/20 06:12 Heparin 5,000 Unit/1 Ml Vial SUB-Q 5,000 unit Q8HR MARSHALL Administration Norepinephrine 4 mg in 250 mls @ 7.5 mls/hr 08/15/20 02:00 08/19/20 15:31 Levophed Drip 4 Mg/Ns 250 Ml IV 2 mcg/min TITR MARSHALL 7.5 mls/hr Administration Protocol 2 MCG/MIN Cefepime HCl 2 gm in 100 mls @ 200 mls/hr 08/15/20 10:00 08/20/20 01:41 Cefepime/Ns 2 Gm/100 Ml IV 08/22/20 02:29 200 mls/hr Q8H MARSHALL Administration Protocol Vancomycin HCl 1,250 mg/ 275 mls @ 166.667 mls/hr 08/17/20 09:00 08/19/20 21:04 Sodium Chloride IV 08/20/20 12:00 166.667 mls/hr Q12H MARSHALL Administration Sodium Chloride 1,000 mls @ 125 mls/hr 08/17/20 18:00 08/18/20 20:43 Nacl 0.45% 1000 Ml IV 125 mls/hr DIRECT MARSHALL Administration Potassium Phosphate 40 mmol/ 513.3333 mls @ 83 mls/hr 08/20/20 09:14 Sodium Chloride IV 08/20/20 15:25 ONCE ONE Magnesium Hydroxide 30 ml 08/14/20 15:42 Magnesium Hydroxide (Mom) Oral Liqd Udc PO Q4H PRN Constipation Midodrine 2.5 mg 08/16/20 08:00 08/19/20 16:51 Midodrine 2.5 Mg Tab PO 2.5 mg TID@0800,1200,1600 MARSHALL Administration Morphine Sulfate 2 mg 08/15/20 17:57 08/20/20 01:16 Morphine 2 Mg/1 Ml Inj IV 2 mg Q6H PRN Administration Pain, Moderate (4-6) Ondansetron HCl 4 mg 08/14/20 15:42 08/19/20 06:04 Ondansetron 4 Mg/2 Ml Inj IV 4 mg Q8H PRN Administration Nausea And Vomiting Primidone 250 mg 08/15/20 14:00 08/19/20 21:05 Primidone 250 Mg Tab PO 250 mg TID MARSHALL Administration Simple Syrup 15 ml 08/19/20 16:06 Simple Syrup 15 Ml FEEDTUBE PRN PRN Hypoglycemia Simple Syrup 30 ml 08/19/20 16:06 Simple Syrup 15 Ml FEEDTUBE PRN PRN Hypoglycemia Sodium Bicarbonate 650 mg 08/16/20 20:00 08/19/20 21:05 Sodium Bicarbonate 650 Mg Tab PO 650 mg TID MARSHALL Administration Sodium Bicarbonate 325 mg 08/19/20 16:06 Sodium Bicarbonate 325 Mg Tab FEEDTUBE PRN PRN For Clogged Feeding Tube Sodium Chloride 10 ml 08/14/20 22:00 08/19/20 23:39 Sodium Chloride 0.9% 10 Ml Flush Syringe IV 10 ml BID MARSHALL Administration Sodium Chloride 10 ml 08/14/20 15:42 Sodium Chloride 0.9% 10 Ml Flush Syringe IV PRN PRN LINE FLUSH Nutrition/Malnutrition Assess - Dietary Evaluation Nutrition/Malnutrition Findings: Nutrition Notes Start: 08/15/20 14:08 Freq: Status: Active Protocol: Document 08/19/20 14:11 YONAS (Rec: 08/19/20 14:34 YONAS [id number]) Co-Sign 08/19/20 14:11 NHALL Nutrition Notes Initial or Follow up Brief Note Current Diagnosis Sepsis Other Pertinent Diagnosis AMS, UTI, hypotension, wound infection, spondylosis Current Diet Mechanical Soft with Ensure Enlive TID [place] Body Weight (kg) 0 Subjective/Other Information F/u diet education needs, intakes, wound assessment. Pt remains in ED. Nutrition Intervention Follow-Up By: 08/22/20 Additional Comments F/u diet education needs, intakes, ONS tolerance, wounds
[2020-08-20] MEDS ORDERED: POTASSIUM PHOSPHATE 40 MMOL in SODIUM CHLORIDE 0.9% 500 ML 500 ML IV ONE (10:00)
[2020-08-20] MEDS: SODIUM BICARBONATE 650 MG TAB PO SCH ×3 (10:30→20:30)
[2020-08-20] MEDS: VANCOMYCIN 1,250 MG in SODIUM CHLORIDE 0.9% 250ML 250 ML IV SCH (10:31)
[2020-08-20] MEDS: carBAMazepine 200 MG TAB PO SCH ×3 (10:31→20:30)
[2020-08-20] MEDS: FOLIC ACID 1 MG TAB PO SCH (10:31)
[2020-08-20] MEDS: MIDODRINE 2.5 MG TAB PO SCH ×3 (10:31→16:17)
[2020-08-20] MEDS: PRIMIDONE 250 MG TAB PO SCH ×3 (10:31→20:30)
[2020-08-20] MEDS: POTASSIUM CHLORIDE 10 MEQ 10 MEQ/100 ML BAG IV SCH ×2 (10:32→12:10)
[2020-08-20] MEDS ORDERED: POTASSIUM CHLORIDE ER 20 MEQ TAB PO SCH (11:00)
[2020-08-20] MEDS ORDERED: MAGNESIUM SULFATE 3 GM in SODIUM CHLORIDE 0.9% 100 ML IV ONE (17:00)
[2020-08-20] MEDS ORDERED: ACETAMINOPHEN 325 MG TAB PO ONE (17:44)
[2020-08-20] MEDS ORDERED: ACETAMINOPHEN 325 MG TAB ONE (17:45)
[2020-08-20] MEDS: POTASSIUM CHLORIDE ER 20 MEQ TAB PO SCH ×2 (18:04→20:30)
[2020-08-20] MEDS ORDERED: SODIUM CHLORIDE 0.9% 1000 ML 1,000 ML IV ONE ×2 (19:56→19:58)
[2020-08-20] MEDS ORDERED: SODIUM CHLORIDE 0.9% 250ML 250 ML IV ONE (21:47)
[2020-08-21] MEDS: CEFEPIME/NS 2 GM/100 ML 2 GM/100 ML BAG IV SCH ×3 (03:38→21:21)
[2020-08-21] MEDS: HEPARIN 5,000 UNIT/1 ML VIAL SUB-Q SCH ×3 (06:03→22:03)
[2020-08-21 06:19] LABS: Blood Urea Nitrogen 9 mg/dL (9-20); Calcium 6.3 mg/dL (8.4-10.2); Hemolysis Index 24
[2020-08-21 06:21] LABS: BUN/Creatinine Ratio 23
[2020-08-21] MEDS: MIDODRINE 2.5 MG TAB PO SCH ×4 (08:34→19:01)
[2020-08-21] MEDS: PRIMIDONE 250 MG TAB PO SCH ×3 (08:34→21:27)
[2020-08-21] MEDS: SODIUM BICARBONATE 650 MG TAB PO SCH ×3 (08:36→21:25)
[2020-08-21] MEDS: carBAMazepine 200 MG TAB PO SCH ×3 (08:36→21:27)
[2020-08-21] MEDS ORDERED: POTASSIUM PHOSPHATE 40 MMOL in SODIUM CHLORIDE 0.9% 500 ML 500 ML IV ONE (09:30)
--- NOTE | 2020-08-21 10:27 | Progress Note ---
Assessment and Plan Assessment and plan: Patient continues to be in septic shock requiring Levophed Also mild hypokalemia and hypophosphatemia -- Septic shock/remains on Levophed Current Visit: Yes Status: Acute Plan to address problem: On Levophed , titrate systolic blood pressures to more than 100 UTI and infected heel, continue antibiotics IV fluids, Blood cultures-no growth --Sepsis secondary to UTI (urinary tract infection) Current Visit: Yes Status: Acute Plan to address problem: Continue empiric antibiotics, follow cultures --Chronic sacral wound Current Visit: Yes Status: Acute Plan to address problem: wound care, continue IV antibiotics, follow cultures. --Leukocytosis/sepsis Current Visit: Yes Status: Acute Plan to address problem: White count trended down to normal range today Continue antibiotics --dysphagia NG tube placement, tube feeding per protocol Medications via NG tube Follow speech therapy evaluation If no improvement may need PEG placement --Persistent hypokalemia; Hypophosphatemia IV K-Phos, monitor electrolytes --Hypomagnesemia Corrected, monitor magnesium. And other electrolytes --Hypophosphatemia IV K-Phos -- Acute hypernatremia Current Visit: Yes Status: Acute . Plan to address problem: Continue free water flushes Closely monitor electrolytes --Acute renal failure/vasomotor nephropathy Current Visit: Yes Status: Acute Plan to address problem: Resolved, normal renal function Avoid nephrotoxin --Severe protein calorie malnutrition; Current Visit: Yes Status: Acute Plan to address problem: Nutrition supplements, Ensure plus Dietitian following, encourage oral intake Tube feeding per protocol --DVT prophylaxis Current Visit: Yes Status: Acute Plan to address problem: Subcu heparin --Full code status Current Visit: Yes Status: Acute Plan to address problem: Patient is a full code. We will closely monitor the patient and adjust management as needed Plan of care reviewed with the patient and his nurse The high probability of a clinically significant, sudden or life threatening deterioration of the [Metabolic, ID , renal dermatology, GI] system(s) required my full and direct attention, intervention and personal management. The aggregate critical care time was [35] minutes. This time is in addition to time spent performing reported procedures but includes the following: [X] Data Review and interpretation [X] Patient assessment and monitoring of vital signs [X] Documentation [X] Medication orders and management Brief history and hospital course; 75-year-old male resident of a custodial brought into the emergency room for evaluation of changes in mental status and low blood pressure. Upon arrival in the emergency room blood pressure was found to be 70s systolic and 30s diastolic, tachycardic in the 160s. Patient was subsequently placed on IV fluid with improvement in his blood pressure and mentation. He denies any chest pain or shortness of breath, no nausea or vomiting, no diarrhea, no headache or dizziness, no hematuria or dysuria. Patient indicates that he has not been able to walk because he was diagnosed with spondylosis and multiple bulging disc. Work-up today reveals a leukocytosis of 22, lactic acid of 4.9, sodium of 152. He also had elevated BUN and creatinine. Urinalysis reveals UTI. Patient has been admitted for dehydration, sepsis secondary to UTI. 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 and ship loader following 08/19/2020; multiple electrolyte abnormalities, hypomagnesemia, hypophosphatemia, hypokalemia, replenish per protocol Patient remains in septic shock, on Levophed, patient is critically ill NG tube placement, tube feeds per protocol 08/20/2020; remains critically ill, septic shock on Levophed, sepsis secondary to UTI on cefepime and Vanco Cultures negative to date, persistent electrolyte abnormalities hypokalemia, hypophosphatemia, hypomagnesemia We will closely monitor electrolytes and adjust as needed 08/21/2020; patient remains Levophed dependent, titrate and DC Receiving tube feeding, continues to have hypokalemia and hypophosphatemia receiving IV K-Phos History Interval history: I have seen and examined the patient at the bedside this morning Patient's chart and medications reviewed Patient remains hypotensive pressor dependent Receiving tube feeding Chronically ill looking Patient is alert and awake responding to simple questions Vital signs noted Hospitalist Physical - Constitutional Vitals: Temp Pulse Resp BP Pulse Ox 97.8 F 85 13 103/58 95 08/20/20 20:41 08/21/20 05:30 08/21/20 05:30 08/21/20 05:30 08/21/20 05:30 General appearance: Present: mild distress, cachectic, other (Chronically ill looking) - EENT Eyes: Present: PERRL, EOM intact - Neck Neck: Present: supple, normal ROM - Respiratory Respiratory effort: normal Respiratory: bilateral: diminished, rhonchi, negative: rales, wheezing - Cardiovascular Rhythm: regular Heart Sounds: Present: S1 & S2 - Extremities Extremities: abnormal (Chronic left foot and right heel wounds) - Abdominal General gastrointestinal: soft, non-tender, non-distended, normal bowel sounds - Integumentary Integumentary: Present: clear, warm - Psychiatric Psychiatric: appropriate mood/affect, cooperative - Neurologic Neurologic: moves all extremities HEART Score - HEART Score Troponin: Troponin T 0.034 ng/mL (0.00-0.029) H 08/14/20 11:02 Results - Labs CBC & Chem 7: 08/20/20 05:26 08/21/20 05:10 Labs: Laboratory Last Values WBC 8.6 K/mm3 (4.5-11.0) 08/20/20 05:26 RBC 3.09 M/mm3 (3.65-5.03) L 08/20/20 05:26 Hgb 9.4 gm/dl (11.8-15.2) L 08/20/20 05:26 Hct 28.4 % (35.5-45.6) L 08/20/20 05:26 MCV 92 fl (84-94) 08/20/20 05:26 MCH 30 pg (28-32) 08/20/20 05:26 MCHC 33 % (32-34) 08/20/20 05:26 RDW 13.7 % (13.2-15.2) 08/20/20 05:26 Plt Count 141 K/mm3 (140-440) 08/20/20 05:26 Lymph % (Auto) 13.0 % (13.4-35.0) L 08/19/20 07:12 [place] % (Auto) 5.0 % (0.0-7.3) 08/19/20 07:12 Eos % (Auto) 0.9 % (0.0-4.3) 08/19/20 07:12 Baso % (Auto) 0.2 % (0.0-1.8) 08/19/20 07:12 Lymph # (Auto) 1.6 K/mm3 (1.2-5.4) 08/19/20 07:12 [place] # (Auto) 0.6 K/mm3 (0.0-0.8) 08/19/20 07:12 Eos # (Auto) 0.1 K/mm3 (0.0-0.4) 08/19/20 07:12 Baso # (Auto) 0.0 K/mm3 (0.0-0.1) 08/19/20 07:12 Add Manual Diff Complete 08/20/20 05:26 Total Counted 100 08/20/20 05:26 Seg Neutrophils % 80.9 % (40.0-70.0) H 08/19/20 07:12 Seg Neuts % (Manual) 78.0 % (40.0-70.0) H 08/20/20 05:26 Band Neutrophils % 5.0 % 08/15/20 14:22 Lymphocytes % (Manual) 11.0 % (13.4-35.0) L 08/20/20 05:26 Monocytes % (Manual) 6.0 % (0.0-7.3) 08/20/20 05:26 Eosinophils % (Manual) 5.0 % (0.0-4.3) H 08/20/20 05:26 Metamyelocytes % 1.0 % 08/15/20 14:22 Nucleated RBC % Not Reportable 08/20/20 05:26 Seg Neutrophils # 9.7 K/mm3 (1.8-7.7) H 08/19/20 07:12 Seg Neutrophils # Man 6.7 K/mm3 (1.8-7.7) 08/20/20 05:26 Band Neutrophils # 0.0 K/mm3 08/20/20 05:26 Lymphocytes # (Manual) 0.9 K/mm3 (1.2-5.4) L 08/20/20 05:26 Abs React Lymphs (Man) 0.0 K/mm3 08/20/20 05:26 Monocytes # (Manual) 0.5 K/mm3 (0.0-0.8) 08/20/20 05:26 Eosinophils # (Manual) 0.4 K/mm3 (0.0-0.4) 08/20/20 05:26 Basophils # (Manual) 0.0 K/mm3 (0.0-0.1) 08/20/20 05:26 Metamyelocytes # 0.0 K/mm3 08/20/20 05:26 Myelocytes # 0.0 K/mm3 08/20/20 05:26 Promyelocytes # 0.0 K/mm3 08/20/20 05:26 Blast Cells # 0.0 K/mm3 08/20/20 05:26 WBC Morphology Not Reportable 08/20/20 05:26 Hypersegmented Neuts Not Reportable 08/20/20 05:26 Hyposegmented Neuts Not Reportable 08/20/20 05:26 Hypogranular Neuts Not Reportable 08/20/20 05:26 Smudge Cells Not Reportable 08/20/20 05:26 Toxic Granulation Not Reportable 08/20/20 05:26 Toxic Vacuolation Not Reportable 08/20/20 05:26 Dohle Bodies Not Reportable 08/20/20 05:26 Pelger-Huet Anomaly Not Reportable 08/20/20 05:26 Kassi Rods Not Reportable 08/20/20 05:26 Platelet Estimate Consistent w auto 08/20/20 05:26 Clumped Platelets Not Reportable 08/20/20 05:26 Plt Clumps, EDTA Not Reportable 08/20/20 05:26 Large Platelets Not Reportable 08/20/20 05:26 Giant Platelets Not Reportable 08/20/20 05:26 Platelet Satelliting Not Reportable 08/20/20 05:26 Plt Morphology Comment Not Reportable 08/20/20 05:26 RBC Morphology Not Reportable 08/20/20 05:26 Dimorphic RBCs Not Reportable 08/20/20 05:26 Polychromasia Not Reportable 08/20/20 05:26 Hypochromasia Not Reportable 08/20/20 05:26 Poikilocytosis Not Reportable 08/20/20 05:26 Anisocytosis Not Reportable 08/20/20 05:26 Microcytosis Not Reportable 08/20/20 05:26 Macrocytosis Not Reportable 08/20/20 05:26 Spherocytes Not Reportable 08/20/20 05:26 Pappenheimer Bodies Not Reportable 08/20/20 05:26 Sickle Cells Not Reportable 08/20/20 05:26 Target Cells Not Reportable 08/20/20 05:26 Tear Drop Cells Not Reportable 08/20/20 05:26 Ovalocytes Not Reportable 08/20/20 05:26 Helmet Cells Not Reportable 08/20/20 05:26 [place] Bodies Not Reportable 08/20/20 05:26 [place] Rings Not Reportable 08/20/20 05:26 Rhea Cells Not Reportable 08/20/20 05:26 Bite Cells Not Reportable 08/20/20 05:26 Crenated Cell Not Reportable 08/20/20 05:26 Elliptocytes Not Reportable 08/20/20 05:26 Acanthocytes (Spur) Not Reportable 08/20/20 05:26 Rouleaux Not Reportable 08/20/20 05:26 Hemoglobin C Crystals Not Reportable 08/20/20 05:26 Schistocytes Not Reportable 08/20/20 05:26 Malaria parasites Not Reportable 08/20/20 05:26 Richard Bodies Not Reportable 08/20/20 05:26 Hem Pathologist Commnt No 08/20/20 05:26 PT 15.4 Sec. (12.2-14.9) H 08/15/20 05:37 INR 1.24 (0.87-1.13) H 08/15/20 05:37 Sodium 151 mmol/L (137-145) H 08/21/20 05:10 Potassium 3.4 mmol/L (3.6-5.0) L 08/21/20 05:10 Chloride 117.8 mmol/L (98-107) H 08/21/20 05:10 Carbon Dioxide 23 mmol/L (22-30) D 08/21/20 05:10 Anion Gap 14 mmol/L 08/21/20 05:10 BUN 9 mg/dL (9-20) 08/21/20 05:10 Creatinine 0.4 mg/dL (0.8-1.3) L 08/21/20 05:10 Estimated GFR > 60 ml/min 08/21/20 05:10 BUN/Creatinine Ratio 23 % 08/21/20 05:10 Glucose 110 mg/dL (75-100) H 08/21/20 05:10 POC Glucose 76 mg/dL (70-105) 08/16/20 00:04 Lactic Acid 1.50 mmol/L (0.7-2.0) 08/14/20 18:37 Calcium 6.3 mg/dL (8.4-10.2) L 08/21/20 05:10 Phosphorus 2.00 mg/dL (2.5-4.5) L 08/21/20 05:10 Magnesium 2.00 mg/dL (1.7-2.3) 08/21/20 05:10 Total Bilirubin < 0.20 mg/dL (0.1-1.2) 08/16/20 05:20 Direct Bilirubin < 0.2 mg/dL (0-0.2) 08/16/20 05:20 Indirect Bilirubin 0.0 mg/dL 08/16/20 05:20 AST 20 units/L (5-40) 08/16/20 05:20 ALT 11 units/L (7-56) 08/16/20 05:20 Alkaline Phosphatase 56 units/L (35-129) 08/16/20 05:20 Total Creatine Kinase 177 units/L (55-170) H 08/15/20 14:22 Troponin T 0.034 ng/mL (0.00-0.029) H 08/14/20 11:02 Total Protein 6.2 g/dL (6.3-8.2) L D 08/16/20 05:20 Albumin 2.5 g/dL (3.9-5) L 08/16/20 05:20 Albumin/Globulin Ratio 0.7 % 08/16/20 05:20 Triglycerides 370 mg/dL (2-149) H 08/14/20 11:02 Cholesterol 243 mg/dL (50-199) H 08/14/20 11:02 LDL Cholesterol Direct 130 mg/dL (50-130) 08/14/20 11:02 HDL Cholesterol 34 mg/dL (40-59) L 08/14/20 11:02 Cholesterol/HDL Ratio 7.14 % 08/14/20 11:02 Urine Color Yellow (Yellow) 08/14/20 13:25 Urine Turbidity Turbid (Clear) 08/14/20 13:25 Urine pH 5.0 (5.0-7.0) 08/14/20 13:25 Ur Specific [place] 1.020 (1.003-1.030) 08/14/20 13:25 Urine Protein 100 mg/dl mg/dL (Negative) 08/14/20 13:25 Urine Glucose (UA) Neg mg/dL (Negative) 08/14/20 13:25 Urine Ketones Tr mg/dL (Negative) 08/14/20 13:25 Urine Blood Mod (Negative) 08/14/20 13:25 Urine Nitrite Neg (Negative) 08/14/20 13:25 Urine Bilirubin Neg (Negative) 08/14/20 13:25 Urine Urobilinogen 2.0 mg/dL (<2.0) 08/14/20 13:25 Ur Leukocyte Esterase Mod (Negative) 08/14/20 13:25 Urine WBC (Auto) > 182.0 /HPF (0.0-6.0) H 08/14/20 13:25 Urine RBC (Auto) 56.0 /HPF (0.0-6.0) 08/14/20 13:25 U Epithel Cells (Auto) 2.0 /HPF (0-13.0) 08/14/20 13:25 Urine Bacteria (Auto) 3+ /HPF (Negative) 08/14/20 13:25 Urine WBC Clumps 3+ /HPF 08/14/20 13:25 Urine Mucus 2+ /HPF 08/14/20 13:25 Urine Creatinine 35.9 mg/dL (0.1-20.0) H 08/15/20 22:12 Urine Creatinine 36.0 mg/dL (0.1-20.0) H 08/15/20 22:12 Protein/Creatinin Ratio 3.20 08/15/20 22:12 Urine Sodium 77 mmol/L 08/15/20 22:12 Urine Total Protein 115 mg/dL (5-11.8) H 08/15/20 22:12 Vancomycin Trough 8.9 ug/mL (5.0-20.0) 08/16/20 16:48 Microbiology: Microbiology 08/18/20 Unknown Urine,[place] Urine Culture - Preliminary NO GROWTH AFTER 24 HOURS Rivas/IV: Voiding Method Indwelling Catheter IV Catheter Type [Left INT / Saline Lock Antecubital] Active Medications - Current Medications Current Medications: Generic Name Dose Route Start Last Admin Trade Name Freq PRN Reason Stop Dose Admin Lipase/Protease/Amylase 1 each 08/19/20 16:06 Lipase 10,500/Protease 25,000/Amylase 43,750 (Units) Dr Cap FEEDTUBE PRN PRN For Clogged Feeding Tube Carbamazepine 200 mg 08/15/20 14:00 08/21/20 08:36 Carbamazepine 200 Mg Tab PO 200 mg TID MARSHALL Administration Folic Acid 1 mg 08/15/20 10:00 08/20/20 10:31 Folic Acid 1 Mg Tab PO 1 mg QDAY MARSHALL Administration Heparin Sodium (Porcine) 5,000 unit 08/14/20 22:00 08/21/20 06:03 Heparin 5,000 Unit/1 Ml Vial SUB-Q 5,000 unit Q8HR MARSHALL Administration Norepinephrine 4 mg in 250 mls @ 7.5 mls/hr 08/15/20 02:00 08/20/20 16:37 Levophed Drip 4 Mg/Ns 250 Ml IV Infused TITR MARSHALL Titration Protocol 2 MCG/MIN Cefepime HCl 2 gm in 100 mls @ 200 mls/hr 08/15/20 10:00 08/21/20 03:38 Cefepime/Ns 2 Gm/100 Ml IV 08/22/20 02:29 200 mls/hr Q8H MARSHALL Administration Protocol Potassium Phosphate 40 mmol/ 513.3333 mls @ 83 mls/hr 08/21/20 09:30 08/21/20 09:44 Sodium Chloride IV 08/21/20 15:41 83 mls/hr ONCE ONE Administration Magnesium Hydroxide 30 ml 08/14/20 15:42 Magnesium Hydroxide (Mom) Oral Liqd Udc PO Q4H PRN Constipation Midodrine 2.5 mg 08/16/20 08:00 08/21/20 08:34 Midodrine 2.5 Mg Tab PO 2.5 mg TID@0800,1200,1600 MARSHALL Administration Morphine Sulfate 2 mg 08/15/20 17:57 08/20/20 01:16 Morphine 2 Mg/1 Ml Inj IV 2 mg Q6H PRN Administration Pain, Moderate (4-6) Ondansetron HCl 4 mg 08/14/20 15:42 08/19/20 06:04 Ondansetron 4 Mg/2 Ml Inj IV 4 mg Q8H PRN Administration Nausea And Vomiting Primidone 250 mg 08/15/20 14:00 08/21/20 08:34 Primidone 250 Mg Tab PO 250 mg TID MARSHALL Administration Simple Syrup 15 ml 08/19/20 16:06 Simple Syrup 15 Ml FEEDTUBE PRN PRN Hypoglycemia Simple Syrup 30 ml 08/19/20 16:06 Simple Syrup 15 Ml FEEDTUBE PRN PRN Hypoglycemia Sodium Bicarbonate 650 mg 08/16/20 20:00 08/21/20 08:36 Sodium Bicarbonate 650 Mg Tab PO 650 mg TID MARSHALL Administration Sodium Bicarbonate 325 mg 08/19/20 16:06 Sodium Bicarbonate 325 Mg Tab FEEDTUBE PRN PRN For Clogged Feeding Tube Sodium Chloride 10 ml 08/14/20 22:00 08/20/20 22:19 Sodium Chloride 0.9% 10 Ml Flush Syringe IV 10 ml BID MARSHALL Administration Sodium Chloride 10 ml 08/14/20 15:42 Sodium Chloride 0.9% 10 Ml Flush Syringe IV PRN PRN LINE FLUSH Nutrition/Malnutrition Assess - Dietary Evaluation Nutrition/Malnutrition Findings: Nutrition Notes Start: 08/15/20 14:08 Freq: Status: Active Protocol: Document 08/20/20 09:23 AT (Rec: 08/20/20 09:47 AT [id number]) Co-Sign 08/20/20 09:23 LP Nutrition Notes Need for Assessment generated from: MD Order Initial or Follow up Assessment Current Diagnosis Sepsis Other Pertinent Diagnosis AMS, UTI, hypotension, wound infection, spondylosis Current Diet Jevity 1.2 at 70 mL/hr Labs/Tests Na 146 K 2.5 BUN 8 Cr 0.5 Ca 6.3 Pertinent Medications Levophed 1/2NS at 125 mL/hr Height 6 ft Weight 83.9 kg [place] Body Weight (kg) 80.90 BMI 25.0 Subjective/Other Information Consult for TF. Per chart, pt presents with possible refeeding syndrome. Pt is not on the vent. Per chart, pt had a recent failed swallow study . Burn Absent Trauma Absent Difficulty In Swallowing Skin Integrity/Comment Bhaskar Score of 11 Current % PO Negligible #1 Nutrition Diagnosis Increased nutrient needs ( specify in comment below) Diagnosis Progress(for reassessment Continues documentation) Is patient on ventilator? No Is Patient Ambulatory and/or Out of Bed No REE-([facility]-confined to bed) 3542.298 Calculation Used for Recommendations [facility] Additional Notes PRO needs: 105 - 126g (1.25-1. 5g/kg) Fluid needs: 1 mL/kcal Nutrition Intervention Change Diet Order: Intiate TF Nutrition Support: Jevity 1.2 at 70 mL/hr FWF: 110 mL q 4 hr Kcal 2,016 Protein (gm) 93 Fluid (mL) 1,355 Goal #1 Meet at least 75% of estimated energy and protein needs via TF Goal #2 Wound healing Anticipated Discharge Needs: Unable to determine at this time Follow-Up By: 08/21/20 Additional Comments F/U for TF start/tolerance, labs
[2020-08-21] MEDS: FOLIC ACID 1 MG TAB PO SCH (10:34)
[2020-08-21] MEDS: NORepinephrine/NS 4 MG-250 ML 4 MG/250 ML BAG IV SCH (14:45)
[2020-08-21] MEDS: MORPHINE 2 MG/1 ML INJ IV PRN (21:27)
[2020-08-22] MEDS: CEFEPIME/NS 2 GM/100 ML 2 GM/100 ML BAG IV SCH (02:08)
[2020-08-22 06:01] LABS: Blood Urea Nitrogen 10 mg/dL (9-20); Calcium 6.7 mg/dL (8.4-10.2); Hemolysis Index 3
[2020-08-22 06:07] LABS: BUN/Creatinine Ratio 20
[2020-08-22] MEDS: HEPARIN 5,000 UNIT/1 ML VIAL SUB-Q SCH ×3 (06:44→22:27)
[2020-08-22] MEDS: PRIMIDONE 250 MG TAB PO SCH ×3 (08:00→22:27)
[2020-08-22] MEDS: carBAMazepine 200 MG TAB PO SCH ×3 (09:00→22:26)
[2020-08-22] MEDS: SODIUM BICARBONATE 650 MG TAB PO SCH ×3 (09:25→22:26)
[2020-08-22] MEDS: FOLIC ACID 1 MG TAB PO SCH (09:25)
[2020-08-22] MEDS: MIDODRINE 2.5 MG TAB PO SCH ×3 (09:25→16:48)
--- NOTE | 2020-08-22 11:00 | Progress Note ---
Assessment and Plan Assessment and plan: Patient is off Levophed, blood pressures reasonable level Patient has recurrent hypokalemia and hypophosphatemia Will add maintenance dose of KCl 20 mEq daily Treat with IV K-Phos 40 mEq, closely monitor electrolytes -- Septic shock/monitor off Levophed Current Visit: Yes Status: Acute Plan to address problem: Monitor off Levophed, with underlying sepsis UTI and infected heel, continue antibiotics IV fluids, Blood cultures-no growth --Sepsis secondary to UTI (urinary tract infection) Current Visit: Yes Status: Acute Plan to address problem: Continue empiric antibiotics, follow cultures --Chronic sacral wound Current Visit: Yes Status: Acute Plan to address problem: wound care, continue IV antibiotics, follow cultures. --Leukocytosis/sepsis Current Visit: Yes Status: Acute Plan to address problem: White count trended down to normal range today Continue antibiotics --dysphagia NG tube placement, tube feeding per protocol Medications via NG tube Follow speech therapy evaluation If no improvement may need PEG placement --Persistent hypokalemia; Hypophosphatemia IV K-Phos, monitor electrolytes --Hypomagnesemia Corrected, monitor magnesium. And other electrolytes --Hypophosphatemia IV K-Phos -- Acute hypernatremia Current Visit: Yes Status: Acute . Plan to address problem: Continue free water flushes Closely monitor electrolytes --Acute renal failure/vasomotor nephropathy Current Visit: Yes Status: Acute Plan to address problem: Resolved, normal renal function Avoid nephrotoxin --Severe protein calorie malnutrition; Current Visit: Yes Status: Acute Plan to address problem: Nutrition supplements, Ensure plus Dietitian following, encourage oral intake Tube feeding per protocol --DVT prophylaxis Current Visit: Yes Status: Acute Plan to address problem: Subcu heparin --Full code status Current Visit: Yes Status: Acute Plan to address problem: Patient is a full code. We will closely monitor the patient and adjust management as needed Plan of care reviewed with the patient and his nurse The high probability of a clinically significant, sudden or life threatening deterioration of the [Metabolic, ID , renal dermatology, GI] system(s) required my full and direct attention, intervention and personal management. The aggregate critical care time was [35] minutes. This time is in addition to time spent performing reported procedures but includes the following: [X] Data Review and interpretation [X] Patient assessment and monitoring of vital signs [X] Documentation [X] Medication orders and management Brief history and hospital course; 75-year-old [facility] brought into the emergency room for evaluation of changes in mental status and low blood pressure. Upon arrival in the emergency room blood pressure was found to be 70s systolic and 30s diastolic, tachycardic in the 160s. Patient was subsequently placed on IV fluid with improvement in his blood pressure and mentation. He denies any chest pain or shortness of breath, no nausea or vomiting, no diarrhea, no headache or dizziness, no hematuria or dysuria. Patient indicates that he has not been able to walk because he was diagnosed with spondylosis and multiple bulging disc. Work-up today reveals a leukocytosis of 22, lactic acid of 4.9, sodium of 152. He also had elevated BUN and creatinine. Urinalysis reveals UTI. Patient has been admitted for dehydration, sepsis secondary to UTI. 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 and object oriented developer following 08/19/2020; multiple electrolyte abnormalities, hypomagnesemia, hypophosphatemia, hypokalemia, replenish per protocol Patient remains in septic shock, on Levophed, patient is critically ill NG tube placement, tube feeds per protocol 08/20/2020; remains critically ill, septic shock on Levophed, sepsis secondary to UTI on cefepime and Vanco Cultures negative to date, persistent electrolyte abnormalities hypokalemia, hypophosphatemia, hypomagnesemia We will closely monitor electrolytes and adjust as needed 08/21/2020; patient remains Levophed dependent, titrate and DC Receiving tube feeding, continues to have hypokalemia and hypophosphatemia receiving IV K-Phos 08/22/2020; monitor the patient off Levophed, continue Dobbhoff feeds, follow speech therapy evaluation and recommendation If no improvement PEG placement, correct electrolyte abnormalities Disposition; placement when patient is medically stable History Interval history: I have seen and examined the patient at the bedside Patient's chart and medications reviewed Patient feels slightly better, receiving Dobbhoff feeds Multiple electrolyte imbalance Off Levophed blood pressures reasonable range Vital signs noted Hospitalist Physical - Constitutional Vitals: Temp Pulse Resp BP Pulse Ox 98.5 F 87 21 112/78 100 08/22/20 09:01 08/22/20 09:01 08/22/20 09:01 08/22/20 09:01 08/22/20 08:36 General appearance: Present: mild distress, cachectic, other (Chronically ill looking) - EENT Eyes: Present: PERRL, EOM intact ENT: other (Dobbhoff feeds) - Neck Neck: Present: supple, normal ROM - Respiratory Respiratory effort: normal Respiratory: bilateral: diminished, rhonchi, negative: rales, wheezing - Cardiovascular Rhythm: regular Heart Sounds: Present: S1 & S2 - Extremities Extremities: abnormal (Chronic foot wounds) - Abdominal General gastrointestinal: soft, non-tender, non-distended, normal bowel sounds - Integumentary Integumentary: Present: clear, warm - Psychiatric Psychiatric: appropriate mood/affect, cooperative, other (Sometimes confused) - Neurologic Neurologic: moves all extremities HEART Score - HEART Score Troponin: Troponin T 0.034 ng/mL (0.00-0.029) H 08/14/20 11:02 Results - Labs CBC & Chem 7: 08/20/20 05:26 08/22/20 05:38 Labs: Laboratory Last Values WBC 8.6 K/mm3 (4.5-11.0) 08/20/20 05:26 RBC 3.09 M/mm3 (3.65-5.03) L 08/20/20 05:26 Hgb 9.4 gm/dl (11.8-15.2) L 08/20/20 05:26 Hct 28.4 % (35.5-45.6) L 08/20/20 05:26 MCV 92 fl (84-94) 08/20/20 05:26 MCH 30 pg (28-32) 08/20/20 05:26 MCHC 33 % (32-34) 08/20/20 05:26 RDW 13.7 % (13.2-15.2) 08/20/20 05:26 Plt Count 141 K/mm3 (140-440) 08/20/20 05:26 Lymph % (Auto) 13.0 % (13.4-35.0) L 08/19/20 07:12 [place] % (Auto) 5.0 % (0.0-7.3) 08/19/20 07:12 Eos % (Auto) 0.9 % (0.0-4.3) 08/19/20 07:12 Baso % (Auto) 0.2 % (0.0-1.8) 08/19/20 07:12 Lymph # (Auto) 1.6 K/mm3 (1.2-5.4) 08/19/20 07:12 [place] # (Auto) 0.6 K/mm3 (0.0-0.8) 08/19/20 07:12 Eos # (Auto) 0.1 K/mm3 (0.0-0.4) 08/19/20 07:12 Baso # (Auto) 0.0 K/mm3 (0.0-0.1) 08/19/20 07:12 Add Manual Diff Complete 08/20/20 05:26 Total Counted 100 08/20/20 05:26 Seg Neutrophils % 80.9 % (40.0-70.0) H 08/19/20 07:12 Seg Neuts % (Manual) 78.0 % (40.0-70.0) H 08/20/20 05:26 Band Neutrophils % 5.0 % 08/15/20 14:22 Lymphocytes % (Manual) 11.0 % (13.4-35.0) L 08/20/20 05:26 Monocytes % (Manual) 6.0 % (0.0-7.3) 08/20/20 05:26 Eosinophils % (Manual) 5.0 % (0.0-4.3) H 08/20/20 05:26 Metamyelocytes % 1.0 % 08/15/20 14:22 Nucleated RBC % Not Reportable 08/20/20 05:26 Seg Neutrophils # 9.7 K/mm3 (1.8-7.7) H 08/19/20 07:12 Seg Neutrophils # Man 6.7 K/mm3 (1.8-7.7) 08/20/20 05:26 Band Neutrophils # 0.0 K/mm3 08/20/20 05:26 Lymphocytes # (Manual) 0.9 K/mm3 (1.2-5.4) L 08/20/20 05:26 Abs React Lymphs (Man) 0.0 K/mm3 08/20/20 05:26 Monocytes # (Manual) 0.5 K/mm3 (0.0-0.8) 08/20/20 05:26 Eosinophils # (Manual) 0.4 K/mm3 (0.0-0.4) 08/20/20 05:26 Basophils # (Manual) 0.0 K/mm3 (0.0-0.1) 08/20/20 05:26 Metamyelocytes # 0.0 K/mm3 08/20/20 05:26 Myelocytes # 0.0 K/mm3 08/20/20 05:26 Promyelocytes # 0.0 K/mm3 08/20/20 05:26 Blast Cells # 0.0 K/mm3 08/20/20 05:26 WBC Morphology Not Reportable 08/20/20 05:26 Hypersegmented Neuts Not Reportable 08/20/20 05:26 Hyposegmented Neuts Not Reportable 08/20/20 05:26 Hypogranular Neuts Not Reportable 08/20/20 05:26 Smudge Cells Not Reportable 08/20/20 05:26 Toxic Granulation Not Reportable 08/20/20 05:26 Toxic Vacuolation Not Reportable 08/20/20 05:26 Dohle Bodies Not Reportable 08/20/20 05:26 Pelger-Huet Anomaly Not Reportable 08/20/20 05:26 Kassi Rods Not Reportable 08/20/20 05:26 Platelet Estimate Consistent w auto 08/20/20 05:26 Clumped Platelets Not Reportable 08/20/20 05:26 Plt Clumps, EDTA Not Reportable 08/20/20 05:26 Large Platelets Not Reportable 08/20/20 05:26 Giant Platelets Not Reportable 08/20/20 05:26 Platelet Satelliting Not Reportable 08/20/20 05:26 Plt Morphology Comment Not Reportable 08/20/20 05:26 RBC Morphology Not Reportable 08/20/20 05:26 Dimorphic RBCs Not Reportable 08/20/20 05:26 Polychromasia Not Reportable 08/20/20 05:26 Hypochromasia Not Reportable 08/20/20 05:26 Poikilocytosis Not Reportable 08/20/20 05:26 Anisocytosis Not Reportable 08/20/20 05:26 Microcytosis Not Reportable 08/20/20 05:26 Macrocytosis Not Reportable 08/20/20 05:26 Spherocytes Not Reportable 08/20/20 05:26 Pappenheimer Bodies Not Reportable 08/20/20 05:26 Sickle Cells Not Reportable 08/20/20 05:26 Target Cells Not Reportable 08/20/20 05:26 Tear Drop Cells Not Reportable 08/20/20 05:26 Ovalocytes Not Reportable 08/20/20 05:26 Helmet Cells Not Reportable 08/20/20 05:26 [place] Bodies Not Reportable 08/20/20 05:26 [place] Rings Not Reportable 08/20/20 05:26 Rhea Cells Not Reportable 08/20/20 05:26 Bite Cells Not Reportable 08/20/20 05:26 Crenated Cell Not Reportable 08/20/20 05:26 Elliptocytes Not Reportable 08/20/20 05:26 Acanthocytes (Spur) Not Reportable 08/20/20 05:26 Rouleaux Not Reportable 08/20/20 05:26 Hemoglobin C Crystals Not Reportable 08/20/20 05:26 Schistocytes Not Reportable 08/20/20 05:26 Malaria parasites Not Reportable 08/20/20 05:26 Richard Bodies Not Reportable 08/20/20 05:26 Hem Pathologist Commnt No 08/20/20 05:26 PT 15.4 Sec. (12.2-14.9) H 08/15/20 05:37 INR 1.24 (0.87-1.13) H 08/15/20 05:37 Sodium 148 mmol/L (137-145) H 08/22/20 05:38 Potassium 3.1 mmol/L (3.6-5.0) L 08/22/20 05:38 Chloride 115.1 mmol/L (98-107) H 08/22/20 05:38 Carbon Dioxide 29 mmol/L (22-30) 08/22/20 05:38 Anion Gap 7 mmol/L 08/22/20 05:38 BUN 10 mg/dL (9-20) 08/22/20 05:38 Creatinine 0.5 mg/dL (0.8-1.3) L 08/22/20 05:38 Estimated GFR > 60 ml/min 08/22/20 05:38 BUN/Creatinine Ratio 20 % 08/22/20 05:38 Glucose 125 mg/dL (75-100) H 08/22/20 05:38 POC Glucose 81 mg/dL (70-105) 08/21/20 23:37 Lactic Acid 1.50 mmol/L (0.7-2.0) 08/14/20 18:37 Calcium 6.7 mg/dL (8.4-10.2) L 08/22/20 05:38 Phosphorus 1.80 mg/dL (2.5-4.5) L 08/22/20 05:38 Magnesium 1.80 mg/dL (1.7-2.3) 08/22/20 05:38 Total Bilirubin < 0.20 mg/dL (0.1-1.2) 08/16/20 05:20 Direct Bilirubin < 0.2 mg/dL (0-0.2) 08/16/20 05:20 Indirect Bilirubin 0.0 mg/dL 08/16/20 05:20 AST 20 units/L (5-40) 08/16/20 05:20 ALT 11 units/L (7-56) 08/16/20 05:20 Alkaline Phosphatase 56 units/L (35-129) 08/16/20 05:20 Total Creatine Kinase 177 units/L (55-170) H 08/15/20 14:22 Troponin T 0.034 ng/mL (0.00-0.029) H 08/14/20 11:02 Total Protein 6.2 g/dL (6.3-8.2) L D 08/16/20 05:20 Albumin 2.5 g/dL (3.9-5) L 08/16/20 05:20 Albumin/Globulin Ratio 0.7 % 08/16/20 05:20 Triglycerides 370 mg/dL (2-149) H 08/14/20 11:02 Cholesterol 243 mg/dL (50-199) H 08/14/20 11:02 LDL Cholesterol Direct 130 mg/dL (50-130) 08/14/20 11:02 HDL Cholesterol 34 mg/dL (40-59) L 08/14/20 11:02 Cholesterol/HDL Ratio 7.14 % 08/14/20 11:02 Urine Color Yellow (Yellow) 08/14/20 13:25 Urine Turbidity Turbid (Clear) 08/14/20 13:25 Urine pH 5.0 (5.0-7.0) 08/14/20 13:25 Ur Specific [place] 1.020 (1.003-1.030) 08/14/20 13:25 Urine Protein 100 mg/dl mg/dL (Negative) 08/14/20 13:25 Urine Glucose (UA) Neg mg/dL (Negative) 08/14/20 13:25 Urine Ketones Tr mg/dL (Negative) 08/14/20 13:25 Urine Blood Mod (Negative) 08/14/20 13:25 Urine Nitrite Neg (Negative) 08/14/20 13:25 Urine Bilirubin Neg (Negative) 08/14/20 13:25 Urine Urobilinogen 2.0 mg/dL (<2.0) 08/14/20 13:25 Ur Leukocyte Esterase Mod (Negative) 08/14/20 13:25 Urine WBC (Auto) > 182.0 /HPF (0.0-6.0) H 08/14/20 13:25 Urine RBC (Auto) 56.0 /HPF (0.0-6.0) 08/14/20 13:25 U Epithel Cells (Auto) 2.0 /HPF (0-13.0) 08/14/20 13:25 Urine Bacteria (Auto) 3+ /HPF (Negative) 08/14/20 13:25 Urine WBC Clumps 3+ /HPF 08/14/20 13:25 Urine Mucus 2+ /HPF 08/14/20 13:25 Urine Creatinine 35.9 mg/dL (0.1-20.0) H 08/15/20 22:12 Urine Creatinine 36.0 mg/dL (0.1-20.0) H 08/15/20 22:12 Protein/Creatinin Ratio 3.20 08/15/20 22:12 Urine Sodium 77 mmol/L 08/15/20 22:12 Urine Total Protein 115 mg/dL (5-11.8) H 08/15/20 22:12 Vancomycin Trough 8.9 ug/mL (5.0-20.0) 08/16/20 16:48 Microbiology: Microbiology 08/18/20 Unknown Urine,[place] Urine Culture - Final NO GROWTH AFTER 48 HOURS Rivas/IV: Voiding Method Indwelling Catheter IV Catheter Type [Left Triple Lumen Cath Internal Jugular] IV Catheter Type [Left INT / Saline Lock Antecubital] Active Medications - Current Medications Current Medications: Generic Name Dose Route Start Last Admin Trade Name Freq PRN Reason Stop Dose Admin Lipase/Protease/Amylase 1 each 08/19/20 16:06 Lipase 10,500/Protease 25,000/Amylase 43,750 (Units) Dr Casper FEEDTUBE PRN PRN For Clogged Feeding Tube Carbamazepine 200 mg 08/15/20 14:00 08/22/20 09:00 Carbamazepine 200 Mg Tab PO 200 mg TID MARSHALL Administration Folic Acid 1 mg 08/15/20 10:00 08/22/20 09:25 Folic Acid 1 Mg Tab PO 1 mg QDAY MARSHALL Administration Heparin Sodium (Porcine) 5,000 unit 08/14/20 22:00 08/22/20 06:44 Heparin 5,000 Unit/1 Ml Vial SUB-Q 5,000 unit Q8HR MARSHALL Administration Potassium Phosphate 40 mmol/ 513.3333 mls @ 83 mls/hr 08/22/20 10:57 Sodium Chloride IV 08/22/20 17:08 ONCE ONE Magnesium Hydroxide 30 ml 08/14/20 15:42 Magnesium Hydroxide (Mom) Oral Liqd Udc PO Q4H PRN Constipation Midodrine 5 mg 08/21/20 17:00 08/22/20 09:25 Midodrine 2.5 Mg Tab PO 5 mg TID@0800,1200,1600 MARSHALL Administration Morphine Sulfate 2 mg 08/15/20 17:57 08/21/20 21:27 Morphine 2 Mg/1 Ml Inj IV 2 mg Q6H PRN Administration Pain, Moderate (4-6) Ondansetron HCl 4 mg 08/14/20 15:42 08/19/20 06:04 Ondansetron 4 Mg/2 Ml Inj IV 4 mg Q8H PRN Administration Nausea And Vomiting Potassium Chloride 20 meq 08/23/20 10:00 Potassium Chloride Er 20 Meq Tab PO QDAY MARSHALL Primidone 250 mg 08/15/20 14:00 08/22/20 08:00 Primidone 250 Mg Tab PO 250 mg TID MARSHALL Administration Simple Syrup 15 ml 08/19/20 16:06 Simple Syrup 15 Ml FEEDTUBE PRN PRN Hypoglycemia Simple Syrup 30 ml 08/19/20 16:06 Simple Syrup 15 Ml FEEDTUBE PRN PRN Hypoglycemia Sodium Bicarbonate 650 mg 08/16/20 20:00 08/22/20 09:25 Sodium Bicarbonate 650 Mg Tab PO 650 mg TID MARSHALL Administration Sodium Bicarbonate 325 mg 08/19/20 16:06 Sodium Bicarbonate 325 Mg Tab FEEDTUBE PRN PRN For Clogged Feeding Tube Sodium Chloride 10 ml 08/14/20 22:00 08/22/20 09:26 Sodium Chloride 0.9% 10 Ml Flush Syringe IV 10 ml BID MARSHALL Administration Sodium Chloride 10 ml 08/14/20 15:42 Sodium Chloride 0.9% 10 Ml Flush Syringe IV PRN PRN LINE FLUSH Nutrition/Malnutrition Assess - Dietary Evaluation Nutrition/Malnutrition Findings: Nutrition Notes Start: 08/15/20 14:08 Freq: Status: Active Protocol: Document 08/21/20 12:52 CW (Rec: 08/21/20 13:10 CW [id number]) Co-Sign 08/21/20 12:52 MK Nutrition Notes Initial or Follow up Reassessment Current Diagnosis Sepsis Other Pertinent Diagnosis AMS, UTI, hypotension, wound infection, spondylosis Current Diet Jevity 1.2 at 70 mL/hr Labs/Tests Na 151 K 3.4 BG 110 Phos 2.0 Pertinent Medications KPhos 40mmol in NaCl at 83ml/ hr Height 6 ft Weight 83.9 kg [place] Body Weight (kg) 80.90 BMI 25.0 Weight Status Appropriate Subjective/Other Information FU for TF start/tolerance. Per chart pt remains in ED hold with TF running at 30ml/hr as of 08/20. Percent of energy/protein needs met: 31%/26% Burn Absent Trauma Absent Difficulty In Swallowing Current % PO Negligible Minimum of two criteria No #2 Nutrition Diagnosis Inadequate oral intake Etiology chewing/swallowing difficulites As Evidenced by Signs and Symptoms Pt failed TESTING COORDINATOR evaluation #1 Nutrition Diagnosis Increased nutrient needs ( specify in comment below) Diagnosis Progress(for reassessment Continues documentation) Is patient on ventilator? No Is Patient Ambulatory and/or Out of Bed No REE-([facility]-confined to bed) 3008.352 Calculation Used for Recommendations [facility] Additional Notes Protein needs: 105 - 126g (1. 25-1.5g/kg ABW) Fluid needs: 1 mL/kcal Nutrition Intervention Change Diet Order: Continue TF Nutrition Support: Jevity 1.2 at 70 mL/hr Flush 200ml q4h for hypernatremia, once resolved flush 100ml q4h Kcal 2,016 Protein (gm) 93 Fluid (mL) 1,355 Add Supplement/Snack (indicate name/kcal Luciano BID /protein ) Provides kCal: 190 Provides Protein (gm) 5 Goal #1 Meet at least 75% of estimated energy and protein needs via TF Goal #2 Wound healing Anticipated Discharge Needs: Unable to determine at this time Follow-Up By: 08/26/20 Additional Comments FU for TF tolerance, labs/Na
[2020-08-22] MEDS ORDERED: POTASSIUM PHOSPHATE 40 MMOL in SODIUM CHLORIDE 0.9% 500 ML 500 ML IV ONE (11:30)
[2020-08-22] MEDS: POTASSIUM CHLORIDE ER 20 MEQ TAB PO SCH (11:56)
[2020-08-23] MEDS: HEPARIN 5,000 UNIT/1 ML VIAL SUB-Q SCH ×3 (05:23→21:50)
[2020-08-23] MEDS: MORPHINE 2 MG/1 ML INJ IV PRN (05:26)
[2020-08-23] MEDS: MIDODRINE 2.5 MG TAB PO SCH ×3 (09:32→16:20)
[2020-08-23] MEDS: carBAMazepine 200 MG TAB PO SCH ×3 (09:33→21:50)
[2020-08-23] MEDS: SODIUM BICARBONATE 650 MG TAB PO SCH (09:33)
[2020-08-23] MEDS: PRIMIDONE 250 MG TAB PO SCH ×3 (09:33→21:50)
[2020-08-23] MEDS: FOLIC ACID 1 MG TAB PO SCH (09:33)
[2020-08-23] MEDS: POTASSIUM CHLORIDE ER 20 MEQ TAB PO SCH (09:34)
--- NOTE | 2020-08-23 17:16 | Progress Note ---
Assessment and Plan Assessment and Plan Assessment and plan: Patient is off Levophed, blood pressures reasonable level Patient has recurrent hypokalemia and hypophosphatemia Will add maintenance dose of KCl 20 mEq daily Treat with IV K-Phos 40 mEq, closely monitor electrolytes -- Septic shock/monitor off Levophed Current Visit: Yes Status: Acute Plan to address problem: Monitor off Levophed, with underlying sepsis UTI and infected heel, continue antibiotics IV fluids, Blood cultures-no growth --Sepsis secondary to UTI (urinary tract infection) Current Visit: Yes Status: Acute Plan to address problem: Continue empiric antibiotics, follow cultures --Chronic sacral wound Current Visit: Yes Status: Acute Plan to address problem: wound care, continue IV antibiotics, follow cultures. --Leukocytosis/sepsis Current Visit: Yes Status: Acute Plan to address problem: White count trended down to normal range today Continue antibiotics --dysphagia NG tube placement, tube feeding per protocol Medications via NG tube Follow speech therapy evaluation If no improvement may need PEG placement --Persistent hypokalemia; Hypophosphatemia IV K-Phos, monitor electrolytes --Hypomagnesemia Corrected, monitor magnesium. And other electrolytes --Hypophosphatemia IV K-Phos -- Acute hypernatremia Current Visit: Yes Status: Acute . Plan to address problem: Continue free water flushes Closely monitor electrolytes --Acute renal failure/vasomotor nephropathy Current Visit: Yes Status: Acute Plan to address problem: Resolved, normal renal function Avoid nephrotoxin --Severe protein calorie malnutrition; Current Visit: Yes Status: Acute Plan to address problem: Nutrition supplements, Ensure plus Dietitian following, encourage oral intake Tube feeding per protocol --DVT prophylaxis Current Visit: Yes Status: Acute Plan to address problem: Subcu heparin --Full code status Current Visit: Yes Status: Acute Plan to address problem: Patient is a full code. We will closely monitor the patient and adjust management as needed Plan of care reviewed with the patient and his nurse Subjective Date of service: 08/23/20 Principal diagnosis: FAZAL Interval history: Brief history and hospital course; 75-year-old male resident of a [facility] brought into the emergency room for evaluation of changes in mental status and low blood pressure. Upon arrival in the emergency room blood pressure was found to be 70s systolic and 30s diastolic, tachycardic in the 160s. Patient was subsequently placed on IV fluid with improvement in his blood pressure and mentation. He denies any chest pain or shortness of breath, no nausea or vomiting, no diarrhea, no headache or dizziness, no hematuria or dysuria. Patient indicates that he has not been able to walk because he was diagnosed with spondylosis and multiple bulging disc. I have seen and examined the patient at the bedside Patient's chart and medications reviewed Patient feels slightly better, receiving Dobbhoff feeds Multiple electrolyte imbalance Off Levophed blood pressures reasonable range Vital signs noted Work-up today reveals a leukocytosis of 22, lactic acid of 4.9, sodium of 152. He also had elevated BUN and creatinine. Urinalysis reveals UTI. Patient has been admitted for dehydration, sepsis secondary to UTI. 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 and slurry control tender following 08/19/2020; multiple electrolyte abnormalities, hypomagnesemia, hypophosphatemia, hypokalemia, replenish per protocol Patient remains in septic shock, on Levophed, patient is critically ill NG tube placement, tube feeds per protocol 08/20/2020; remains critically ill, septic shock on Levophed, sepsis secondary to UTI on cefepime and Vanco Cultures negative to date, persistent electrolyte abnormalities hypokalemia, hypophosphatemia, hypomagnesemia We will closely monitor electrolytes and adjust as needed 08/21/2020; patient remains Levophed dependent, titrate and DC Receiving tube feeding, continues to have hypokalemia and hypophosphatemia receiving IV K-Phos 08/22/2020; monitor the patient off Levophed, continue Dobbhoff feeds, follow speech therapy evaluation and recommendation If no improvement PEG placement, correct electrolyte abnormalities Disposition; placement when patient is medically stable 08/23/2020 Patient stable off Levophed Objective - Constitutional Vitals: Vital Signs - 12hr 08/23/20 08/23/20 08/23/20 08:01 10:00 11:16 Temperature 98.0 F 98.0 F Pulse Rate 99 H 91 H 92 H Respiratory 18 18 18 Rate Blood Pressure 100/51 101/54 O2 Sat by Pulse 100 99 96 Oximetry General appearance: Present: no acute distress, well-nourished - EENT Eyes: PERRL, EOM intact ENT: hearing intact, clear oral mucosa Ears: bilateral: normal - Neck Neck: supple, normal ROM - Respiratory Respiratory effort: normal Respiratory: bilateral: CTA - Breasts Breasts: normal - Cardiovascular Heart rate: 76 Rhythm: regular Heart Sounds: Present: S1 & S2. Absent: gallop, rub Extremities: pulses intact, No edema, normal color, Full ROM - Gastrointestinal General gastrointestinal: Present: soft, non-tender, non-distended, normal bowel sounds - Genitourinary Male genitourinary: normal - Integumentary Integumentary: clear, warm, dry - Musculoskeletal Musculoskeletal: 1, strength equal bilaterally - Neurologic Neurologic: moves all extremities - Psychiatric Psychiatric: memory intact, appropriate mood/affect, intact judgment & insight - Labs CBC & Chem 7: 08/20/20 05:26 08/22/20 05:38 Labs: Abnormal lab results 08/22/20 08/23/20 Range/Units 23:15 11:45 POC Glucose 121 H 127 H (70-105) mg/dL HEART Score - HEART Score Troponin: Troponin T 0.034 ng/mL (0.00-0.029) H 08/14/20 11:02
[2020-08-23] MEDS: POTASSIUM CHLORIDE 20 MEQ PACKET FEEDTUBE SCH (18:10)
[2020-08-24] MEDS: HEPARIN 5,000 UNIT/1 ML VIAL SUB-Q SCH ×3 (06:00→21:39)
[2020-08-24 07:41] LABS: Basophils % (Auto) 0.2 % (0.0-1.8); Eosinophils # (Auto) 0.1 K/mm3 (0.0-0.4); Eosinophils % (Auto) 1.1 % (0.0-4.3); Hematocrit 23.1 % (35.5-45.6); Hemoglobin 7.5 gm/dl (11.8-15.2); Lymphocytes # (Auto) 2.1 K/mm3 (1.2-5.4); Lymphocytes % (Auto) 18.8 % (13.4-35.0); Mean Corpuscular HGB Conc 33 % (32-34); Mean Corpuscular Volume 91 fl (84-94); Monocytes % (Auto) 9.1 % (0.0-7.3); Platelet Count 182 K/mm3 (140-440); Red Blood Count 2.53 M/mm3 (3.65-5.03); Red Cell Distribution Width 13.6 % (13.2-15.2)
[2020-08-24 08:07] LABS: Alanine Aminotransferase 10 units/L (7-56); Albumin 1.8 g/dL (3.9-5); Blood Urea Nitrogen 9 mg/dL (9-20); Calcium 7.2 mg/dL (8.4-10.2); Hemolysis Index 1
[2020-08-24 08:11] LABS: BUN/Creatinine Ratio 18
[2020-08-24] MEDS: MIDODRINE 2.5 MG TAB PO SCH ×3 (09:20→16:11)
[2020-08-24] MEDS: FOLIC ACID 1 MG TAB PO SCH (09:21)
[2020-08-24] MEDS: PRIMIDONE 250 MG TAB PO SCH ×3 (09:21→21:39)
[2020-08-24] MEDS: carBAMazepine 200 MG TAB PO SCH ×3 (09:21→21:39)
[2020-08-24] MEDS: POTASSIUM CHLORIDE 20 MEQ PACKET FEEDTUBE SCH (09:21)
--- NOTE | 2020-08-24 13:27 | Progress Note ---
Assessment and Plan Assessment and Plan Assessment and plan: Patient is off Levophed, blood pressures reasonable level Patient has recurrent hypokalemia and hypophosphatemia Will add maintenance dose of KCl 20 mEq daily Treat with IV K-Phos 40 mEq, closely monitor electrolytes -- Septic shock/monitor off Levophed Current Visit: Yes Status: Acute Plan to address problem: Monitor off Levophed, with underlying sepsis UTI and infected heel, continue antibiotics IV fluids, Blood cultures-no growth --Sepsis secondary to UTI (urinary tract infection) Current Visit: Yes Status: Acute Plan to address problem: Continue empiric antibiotics, follow cultures --Chronic sacral wound Current Visit: Yes Status: Acute Plan to address problem: wound care, continue IV antibiotics, follow cultures. --Leukocytosis/sepsis Current Visit: Yes Status: Acute Plan to address problem: White count trended down to normal range today Continue antibiotics --dysphagia NG tube placement, tube feeding per protocol Medications via NG tube Follow speech therapy evaluation If no improvement may need PEG placement --Persistent hypokalemia; Hypophosphatemia IV K-Phos, monitor electrolytes --Hypomagnesemia Corrected, monitor magnesium. And other electrolytes --Hypophosphatemia IV K-Phos -- Acute hypernatremia Current Visit: Yes Status: Acute . Plan to address problem: Continue free water flushes Closely monitor electrolytes --Acute renal failure/vasomotor nephropathy Current Visit: Yes Status: Acute Plan to address problem: Resolved, normal renal function Avoid nephrotoxin --Severe protein calorie malnutrition; Current Visit: Yes Status: Acute Plan to address problem: Nutrition supplements, Ensure plus Dietitian following, encourage oral intake Tube feeding per protocol --DVT prophylaxis Current Visit: Yes Status: Acute Plan to address problem: Subcu heparin --Full code status Current Visit: Yes Status: Acute Plan to address problem: Patient is a full code. We will closely monitor the patient and adjust management as needed Plan of care reviewed with the patient and his nurse Subjective Date of service: 08/24/20 Principal diagnosis: FAZAL Interval history: Brief history and hospital course; 75-year-old male resident of a [facility] brought into the emergency room for evaluation of changes in mental status and low blood pressure. Upon arrival in the emergency room blood pressure was found to be 70s systolic and 30s diastolic, tachycardic in the 160s. Patient was subsequently placed on IV fluid with improvement in his blood pressure and mentation. He denies any chest pain or shortness of breath, no nausea or vomiting, no diarrhea, no headache or dizziness, no hematuria or dysuria. Patient indicates that he has not been able to walk because he was diagnosed with spondylosis and multiple bulging disc. I have seen and examined the patient at the bedside Patient's chart and medications reviewed Patient feels slightly better, receiving Dobbhoff feeds Multiple electrolyte imbalance Off Levophed blood pressures reasonable range Vital signs noted Work-up today reveals a leukocytosis of 22, lactic acid of 4.9, sodium of 152. He also had elevated BUN and creatinine. Urinalysis reveals UTI. Patient has been admitted for dehydration, sepsis secondary to UTI. 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 and superintendent general following 08/19/2020; multiple electrolyte abnormalities, hypomagnesemia, hypophosphatemia, hypokalemia, replenish per protocol Patient remains in septic shock, on Levophed, patient is critically ill NG tube placement, tube feeds per protocol 08/20/2020; remains critically ill, septic shock on Levophed, sepsis secondary to UTI on cefepime and Vanco Cultures negative to date, persistent electrolyte abnormalities hypokalemia, hypophosphatemia, hypomagnesemia We will closely monitor electrolytes and adjust as needed 08/21/2020; patient remains Levophed dependent, titrate and DC Receiving tube feeding, continues to have hypokalemia and hypophosphatemia receiving IV K-Phos 08/22/2020; monitor the patient off Levophed, continue Dobbhoff feeds, follow speech therapy evaluation and recommendation If no improvement PEG placement, correct electrolyte abnormalities Disposition; placement when patient is medically stable 08/23/2020 Patient stable off Levophed ' 08/24/2020 Patient stable off Levophed Objective - Constitutional Vitals: Vital Signs - 12hr 08/24/20 08/24/20 08/24/20 04:07 08:21 10:00 Temperature 98.2 F 98.2 F Pulse Rate 95 H 96 H Respiratory 18 18 Rate Blood Pressure 97/54 114/62 O2 Sat by Pulse 93 94 98 Oximetry General appearance: Present: no acute distress, well-nourished - EENT Eyes: PERRL, EOM intact ENT: hearing intact, clear oral mucosa Ears: bilateral: normal - Neck Neck: supple, normal ROM - Respiratory Respiratory effort: normal Respiratory: bilateral: CTA - Breasts Breasts: normal - Cardiovascular Rhythm: regular Heart Sounds: Present: S1 & S2. Absent: gallop, rub Extremities: pulses intact, No edema, normal color, Full ROM - Gastrointestinal General gastrointestinal: Present: soft, non-tender, non-distended, normal bowel sounds - Genitourinary Male genitourinary: normal - Integumentary Integumentary: clear, warm, dry - Musculoskeletal Musculoskeletal: 1, strength equal bilaterally - Neurologic Neurologic: moves all extremities - Psychiatric Psychiatric: memory intact, appropriate mood/affect, intact judgment & insight - Labs CBC & Chem 7: 08/24/20 07:09 08/24/20 07:09 Labs: Abnormal lab results 08/24/20 08/24/20 Range/Units 07:09 07:09 WBC 11.2 H (4.5-11.0) K/mm3 RBC 2.53 L (3.65-5.03) M/mm3 Hgb 7.5 L (11.8-15.2) gm/dl Hct 23.1 L (35.5-45.6) % Harrison % (Auto) 9.1 H (0.0-7.3) % Harrison # (Auto) 1.0 H (0.0-0.8) K/mm3 Seg Neutrophils % 70.8 H (40.0-70.0) % Seg Neutrophils # 8.0 H (1.8-7.7) K/mm3 Sodium 146 H (137-145) mmol/L Chloride 112.1 H (98-107) mmol/L Creatinine 0.5 L (0.8-1.3) mg/dL Glucose 123 H (75-100) mg/dL Calcium 7.2 L (8.4-10.2) mg/dL Total Protein 5.8 L (6.3-8.2) g/dL Albumin 1.8 L (3.9-5) g/dL HEART Score - HEART Score Troponin: Troponin T 0.034 ng/mL (0.00-0.029) H 08/14/20 11:02
[2020-08-25] MEDS ORDERED: dilTIAZem 25 MG/5 ML INJ IV ONE (01:57)
[2020-08-25] MEDS: HEPARIN 5,000 UNIT/1 ML VIAL SUB-Q SCH ×3 (06:32→22:54)
[2020-08-25] MEDS: MIDODRINE 2.5 MG TAB PO SCH ×3 (10:19→17:23)
[2020-08-25] MEDS: POTASSIUM CHLORIDE 20 MEQ PACKET FEEDTUBE SCH (10:20)
[2020-08-25] MEDS: PRIMIDONE 250 MG TAB PO SCH ×3 (10:21→22:54)
[2020-08-25] MEDS: carBAMazepine 200 MG TAB PO SCH ×3 (10:21→22:54)
[2020-08-25] MEDS: FOLIC ACID 1 MG TAB PO SCH (10:21)
--- NOTE | 2020-08-25 18:08 | Progress Note ---
Assessment and Plan Assessment and Plan Patient is off Levophed, blood pressures reasonable level Patient has recurrent hypokalemia and hypophosphatemia Will add maintenance dose of KCl 20 mEq daily Treat with IV K-Phos 40 mEq, closely monitor electrolytes -- Septic shock/monitor off Levophed Current Visit: Yes Status: Acute Plan to address problem: Monitor off Levophed, with underlying sepsis UTI and infected heel, continue antibiotics IV fluids, Blood cultures-no growth --Sepsis secondary to UTI (urinary tract infection) Current Visit: Yes Status: Acute Plan to address problem: Continue empiric antibiotics, follow cultures --Chronic sacral wound Current Visit: Yes Status: Acute Plan to address problem: wound care, continue IV antibiotics, follow cultures. --Leukocytosis/sepsis Current Visit: Yes Status: Acute Plan to address problem: White count trended down to normal range today Continue antibiotics --dysphagia NG tube placement, tube feeding per protocol Medications via NG tube Follow speech therapy evaluation If no improvement may need PEG placement --Persistent hypokalemia; Hypophosphatemia IV K-Phos, monitor electrolytes --Hypomagnesemia Corrected, monitor magnesium. And other electrolytes --Hypophosphatemia IV K-Phos -- Acute hypernatremia Current Visit: Yes Status: Acute . Plan to address problem: Continue free water flushes Closely monitor electrolytes --Acute renal failure/vasomotor nephropathy Current Visit: Yes Status: Acute Plan to address problem: Resolved, normal renal function Avoid nephrotoxin --Severe protein calorie malnutrition; Current Visit: Yes Status: Acute Plan to address problem: Nutrition supplements, Ensure plus Dietitian following, encourage oral intake Tube feeding per protocol --DVT prophylaxis Current Visit: Yes Status: Acute Plan to address problem: Subcu heparin --Full code status Current Visit: Yes Status: Acute Plan to address problem: Patient is a full code. We will closely monitor the patient and adjust management as needed Plan of care reviewed with the patient and his nurse Subjective Date of service: 08/25/20 Principal diagnosis: FAZAL Interval history: Brief history and hospital course; 75-year-old male resident of a [facility] brought into the emergency room for evaluation of changes in mental status and low blood pressure. Upon arrival in the emergency room blood pressure was found to be 70s systolic and 30s diastolic, tachycardic in the 160s. Patient was subsequently placed on IV fluid with improvement in his blood pressure and mentation. He denies any chest pain or shortness of breath, no nausea or vomiting, no diarrhea, no headache or dizziness, no hematuria or dysuria. Patient indicates that he has not been able to walk because he was diagnosed with spondylosis and multiple bulging disc. I have seen and examined the patient at the bedside Patient's chart and medications reviewed Patient feels slightly better, receiving Dobbhoff feeds Multiple electrolyte imbalance Off Levophed blood pressures reasonable range Vital signs noted Work-up today reveals a leukocytosis of 22, lactic acid of 4.9, sodium of 152. He also had elevated BUN and creatinine. Urinalysis reveals UTI. Patient has been admitted for dehydration, sepsis secondary to UTI. 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 and mail order clerk following 08/19/2020; multiple electrolyte abnormalities, hypomagnesemia, hypophosphatemia, hypokalemia, replenish per protocol Patient remains in septic shock, on Levophed, patient is critically ill NG tube placement, tube feeds per protocol 08/20/2020; remains critically ill, septic shock on Levophed, sepsis secondary to UTI on cefepime and Vanco Cultures negative to date, persistent electrolyte abnormalities hypokalemia, hypophosphatemia, hypomagnesemia We will closely monitor electrolytes and adjust as needed 08/21/2020; patient remains Levophed dependent, titrate and DC Receiving tube feeding, continues to have hypokalemia and hypophosphatemia receiving IV K-Phos 08/22/2020; monitor the patient off Levophed, continue Dobbhoff feeds, follow speech therapy evaluation and recommendation If no improvement PEG placement, correct electrolyte abnormalities Disposition; placement when patient is medically stable 08/23/2020 Patient stable off Levophed ' 08/24/2020 Patient stable off Levophed 08/25/2020 Patient stable off Levophed PT and OT Objective - Constitutional Vitals: Vital Signs - 12hr 08/25/20 08/25/20 08/25/20 08:08 10:00 11:55 Temperature 98.1 F Pulse Rate 122 H 120 H 107 H Pulse Rate [ 120 H Right Radial] Respiratory 18 Rate Blood Pressure 73/50 84/54 89/54 Blood Pressure [Left] O2 Sat by Pulse 100 97 96 Oximetry 08/25/20 08/25/20 08/25/20 12:12 12:13 15:40 Temperature 97.3 F L 98.3 F 97.6 F Pulse Rate 87 107 H 93 H Pulse Rate [ Right Radial] Respiratory 20 18 Rate Blood Pressure 111/80 96/55 Blood Pressure 89/54 [Left] O2 Sat by Pulse 97 90 92 Oximetry General appearance: Present: no acute distress, well-nourished - EENT Eyes: PERRL, EOM intact ENT: hearing intact, clear oral mucosa Ears: bilateral: normal - Neck Neck: supple, normal ROM - Respiratory Respiratory effort: normal Respiratory: bilateral: CTA - Breasts Breasts: normal - Cardiovascular Rhythm: regular Heart Sounds: Present: S1 & S2. Absent: gallop, rub Extremities: pulses intact, No edema, normal color, Full ROM - Gastrointestinal General gastrointestinal: Present: soft, non-tender, non-distended, normal bowel sounds - Genitourinary Male genitourinary: normal - Integumentary Integumentary: clear, warm, dry - Musculoskeletal Musculoskeletal: 1, strength equal bilaterally - Neurologic Neurologic: moves all extremities - Psychiatric Psychiatric: memory intact, appropriate mood/affect, intact judgment & insight - Labs CBC & Chem 7: 08/24/20 07:09 08/24/20 07:09 Labs: Abnormal lab results 08/25/20 Range/Units 05:09 POC Glucose 116 H (70-105) mg/dL HEART Score - HEART Score Troponin: Troponin T 0.034 ng/mL (0.00-0.029) H 08/14/20 11:02
--- NOTE | 2020-08-25 20:44 | XRay Report ---
ABDOMEN 1 VIEW 7:57 PM INDICATION / CLINICAL INFORMATION: NGT placement. COMPARISON: 08/19/20. FINDINGS: TUBES / LINES: There is a nasogastric tube with the tip near the gastroesophageal junction and the pr oximal sidehole overlying the proximal esophagus. BOWEL GAS PATTERN: No significant abnormality. FREE AIR / EXTRALUMINAL GAS: None seen. ADDITIONAL FINDINGS: No significant additional findings. IMPRESSION: The nasogastric tube needs to be advanced. Signer Name: You Olmstead MD Signed: 08/25/2020 8:40 PM Workstation Name: [id number]
[2020-08-26] MEDS: HEPARIN 5,000 UNIT/1 ML VIAL SUB-Q SCH ×2 (06:49→13:25)
[2020-08-26] MEDS: carBAMazepine 200 MG TAB PO SCH ×3 (09:52→20:52)
[2020-08-26] MEDS: FOLIC ACID 1 MG TAB PO SCH (09:52)
[2020-08-26] MEDS: POTASSIUM CHLORIDE 20 MEQ PACKET FEEDTUBE SCH (09:53)
[2020-08-26] MEDS: PRIMIDONE 250 MG TAB PO SCH ×3 (09:53→20:52)
[2020-08-26] MEDS: MIDODRINE 2.5 MG TAB PO SCH ×3 (09:54→17:33)
--- NOTE | 2020-08-26 11:07 | Progress Note ---
Assessment and Plan Assessment and plan: --dysphagia/failed swallow eval/for PEG placement GI consult [informed GI] N.p.o. from midnight Speech therapist evaluated Recommend PEG placement Intermittent suction of oral secretions --Severe protein calorie malnutrition; Current Visit: Yes Status: Acute Plan to address problem: Nutrition supplements, Ensure plus Dietitian following, Tube feeding per protocol Dysphagia, patient needs PEG placement -- Septic shock/resolved Current Visit: Yes Status: Acute Plan to address problem: Monitor off Levophed, with underlying sepsis UTI and infected heel, continue antibiotics IV fluids, Blood cultures-no growth --Sepsis secondary to UTI (urinary tract infection) Current Visit: Yes Status: Acute Plan to address problem: Completed antibiotics --Chronic sacral wound Current Visit: Yes Status: Acute Plan to address problem: wound care, completed antibiotics --Leukocytosis/sepsis Current Visit: Yes Status: Acute Plan to address problem: WBC trending down Completed antibiotics --Hypernatremia; secondary to dehydration D5 W IV fluids, closely monitor electrolytes --DVT prophylaxis Current Visit: Yes Status: Acute Plan to address problem: Subcu heparin --Full code status Current Visit: Yes Status: Acute Plan to address problem: Patient is a full code. We will closely monitor the patient and adjust management as needed Plan of care reviewed with the patient and his nurse History Interval history: I have seen and examined the patient at the bedside Patient's chart and medications reviewed Patient has copious secretions in the throat unable to swallow Intermittent suction Speech therapist evaluated the patient recommend PEG placement Patient not in acute distress Vital signs reviewed Hospitalist Physical - Constitutional Vitals: Temp Pulse Resp BP Pulse Ox 98.6 F 98 H 20 103/51 96 08/26/20 08:35 08/26/20 08:35 08/26/20 08:35 08/26/20 08:37 08/26/20 08:35 General appearance: Present: no acute distress, well-nourished - EENT Eyes: Present: PERRL, EOM intact - Neck Neck: Present: supple, normal ROM - Respiratory Respiratory effort: normal Respiratory: bilateral: diminished, rhonchi, negative: rales, wheezing - Cardiovascular Rhythm: regular Heart Sounds: Present: S1 & S2 - Extremities Extremities: no ischemia, No edema, abnormal (Chronic wounds) - Abdominal General gastrointestinal: soft, non-tender, non-distended, normal bowel sounds - Integumentary Integumentary: Present: clear, warm - Psychiatric Psychiatric: appropriate mood/affect, cooperative HEART Score - HEART Score Troponin: Troponin T 0.034 ng/mL (0.00-0.029) H 08/14/20 11:02 Results - Labs CBC & Chem 7: 08/24/20 07:09 08/24/20 07:09 Labs: Laboratory Last Values WBC 11.2 K/mm3 (4.5-11.0) H 08/24/20 07:09 RBC 2.53 M/mm3 (3.65-5.03) L 08/24/20 07:09 Hgb 7.5 gm/dl (11.8-15.2) L 08/24/20 07:09 Hct 23.1 % (35.5-45.6) L 08/24/20 07:09 MCV 91 fl (84-94) 08/24/20 07:09 MCH 30 pg (28-32) 08/24/20 07:09 MCHC 33 % (32-34) 08/24/20 07:09 RDW 13.6 % (13.2-15.2) 08/24/20 07:09 Plt Count 182 K/mm3 (140-440) 08/24/20 07:09 Lymph % (Auto) 18.8 % (13.4-35.0) 08/24/20 07:09 [place] % (Auto) 9.1 % (0.0-7.3) H 08/24/20 07:09 Eos % (Auto) 1.1 % (0.0-4.3) 08/24/20 07:09 Baso % (Auto) 0.2 % (0.0-1.8) 08/24/20 07:09 Lymph # (Auto) 2.1 K/mm3 (1.2-5.4) 08/24/20 07:09 [place] # (Auto) 1.0 K/mm3 (0.0-0.8) H 08/24/20 07:09 Eos # (Auto) 0.1 K/mm3 (0.0-0.4) 08/24/20 07:09 Baso # (Auto) 0.0 K/mm3 (0.0-0.1) 08/24/20 07:09 Add Manual Diff Complete 08/20/20 05:26 Total Counted 100 08/20/20 05:26 Seg Neutrophils % 70.8 % (40.0-70.0) H 08/24/20 07:09 Seg Neuts % (Manual) 78.0 % (40.0-70.0) H 08/20/20 05:26 Band Neutrophils % 5.0 % 08/15/20 14:22 Lymphocytes % (Manual) 11.0 % (13.4-35.0) L 08/20/20 05:26 Monocytes % (Manual) 6.0 % (0.0-7.3) 08/20/20 05:26 Eosinophils % (Manual) 5.0 % (0.0-4.3) H 08/20/20 05:26 Metamyelocytes % 1.0 % 08/15/20 14:22 Nucleated RBC % Not Reportable 08/20/20 05:26 Seg Neutrophils # 8.0 K/mm3 (1.8-7.7) H 08/24/20 07:09 Seg Neutrophils # Man 6.7 K/mm3 (1.8-7.7) 08/20/20 05:26 Band Neutrophils # 0.0 K/mm3 08/20/20 05:26 Lymphocytes # (Manual) 0.9 K/mm3 (1.2-5.4) L 08/20/20 05:26 Abs React Lymphs (Man) 0.0 K/mm3 08/20/20 05:26 Monocytes # (Manual) 0.5 K/mm3 (0.0-0.8) 08/20/20 05:26 Eosinophils # (Manual) 0.4 K/mm3 (0.0-0.4) 08/20/20 05:26 Basophils # (Manual) 0.0 K/mm3 (0.0-0.1) 08/20/20 05:26 Metamyelocytes # 0.0 K/mm3 08/20/20 05:26 Myelocytes # 0.0 K/mm3 08/20/20 05:26 Promyelocytes # 0.0 K/mm3 08/20/20 05:26 Blast Cells # 0.0 K/mm3 08/20/20 05:26 WBC Morphology Not Reportable 08/20/20 05:26 Hypersegmented Neuts Not Reportable 08/20/20 05:26 Hyposegmented Neuts Not Reportable 08/20/20 05:26 Hypogranular Neuts Not Reportable 08/20/20 05:26 Smudge Cells Not Reportable 08/20/20 05:26 Toxic Granulation Not Reportable 08/20/20 05:26 Toxic Vacuolation Not Reportable 08/20/20 05:26 Dohle Bodies Not Reportable 08/20/20 05:26 Pelger-Huet Anomaly Not Reportable 08/20/20 05:26 Kassi Rods Not Reportable 08/20/20 05:26 Platelet Estimate Consistent w auto 08/20/20 05:26 Clumped Platelets Not Reportable 08/20/20 05:26 Plt Clumps, EDTA Not Reportable 08/20/20 05:26 Large Platelets Not Reportable 08/20/20 05:26 Giant Platelets Not Reportable 08/20/20 05:26 Platelet Satelliting Not Reportable 08/20/20 05:26 Plt Morphology Comment Not Reportable 08/20/20 05:26 RBC Morphology Not Reportable 08/20/20 05:26 Dimorphic RBCs Not Reportable 08/20/20 05:26 Polychromasia Not Reportable 08/20/20 05:26 Hypochromasia Not Reportable 08/20/20 05:26 Poikilocytosis Not Reportable 08/20/20 05:26 Anisocytosis Not Reportable 08/20/20 05:26 Microcytosis Not Reportable 08/20/20 05:26 Macrocytosis Not Reportable 08/20/20 05:26 Spherocytes Not Reportable 08/20/20 05:26 Pappenheimer Bodies Not Reportable 08/20/20 05:26 Sickle Cells Not Reportable 08/20/20 05:26 Target Cells Not Reportable 08/20/20 05:26 Tear Drop Cells Not Reportable 08/20/20 05:26 Ovalocytes Not Reportable 08/20/20 05:26 Helmet Cells Not Reportable 08/20/20 05:26 [place] Bodies Not Reportable 08/20/20 05:26 [place] Rings Not Reportable 08/20/20 05:26 Rhea Cells Not Reportable 08/20/20 05:26 Bite Cells Not Reportable 08/20/20 05:26 Crenated Cell Not Reportable 08/20/20 05:26 Elliptocytes Not Reportable 08/20/20 05:26 Acanthocytes (Spur) Not Reportable 08/20/20 05:26 Rouleaux Not Reportable 08/20/20 05:26 Hemoglobin C Crystals Not Reportable 08/20/20 05:26 Schistocytes Not Reportable 08/20/20 05:26 Malaria parasites Not Reportable 08/20/20 05:26 Richard Bodies Not Reportable 08/20/20 05:26 Hem Pathologist Commnt No 08/20/20 05:26 PT 15.4 Sec. (12.2-14.9) H 08/15/20 05:37 INR 1.24 (0.87-1.13) H 08/15/20 05:37 Sodium 146 mmol/L (137-145) H 08/24/20 07:09 Potassium 4.3 mmol/L (3.6-5.0) D 08/24/20 07:09 Chloride 112.1 mmol/L (98-107) H 08/24/20 07:09 Carbon Dioxide 29 mmol/L (22-30) 08/24/20 07:09 Anion Gap 9 mmol/L 08/24/20 07:09 BUN 9 mg/dL (9-20) 08/24/20 07:09 Creatinine 0.5 mg/dL (0.8-1.3) L 08/24/20 07:09 Estimated GFR > 60 ml/min 08/24/20 07:09 BUN/Creatinine Ratio 18 % 08/24/20 07:09 Glucose 123 mg/dL (75-100) H 08/24/20 07:09 POC Glucose 94 mg/dL (70-105) 08/26/20 00:15 Lactic Acid 1.50 mmol/L (0.7-2.0) 08/14/20 18:37 Calcium 7.2 mg/dL (8.4-10.2) L 08/24/20 07:09 Phosphorus 1.80 mg/dL (2.5-4.5) L 08/22/20 05:38 Magnesium 1.80 mg/dL (1.7-2.3) 08/22/20 05:38 Total Bilirubin 0.20 mg/dL (0.1-1.2) 08/24/20 07:09 Direct Bilirubin < 0.2 mg/dL (0-0.2) 08/16/20 05:20 Indirect Bilirubin 0.0 mg/dL 08/16/20 05:20 AST 10 units/L (5-40) 08/24/20 07:09 ALT 10 units/L (7-56) 08/24/20 07:09 Alkaline Phosphatase 53 units/L (35-129) 08/24/20 07:09 Total Creatine Kinase 177 units/L (55-170) H 08/15/20 14:22 Troponin T 0.034 ng/mL (0.00-0.029) H 08/14/20 11:02 Total Protein 5.8 g/dL (6.3-8.2) L 08/24/20 07:09 Albumin 1.8 g/dL (3.9-5) L 08/24/20 07:09 Albumin/Globulin Ratio 0.5 % 08/24/20 07:09 Triglycerides 370 mg/dL (2-149) H 08/14/20 11:02 Cholesterol 243 mg/dL (50-199) H 08/14/20 11:02 LDL Cholesterol Direct 130 mg/dL (50-130) 08/14/20 11:02 HDL Cholesterol 34 mg/dL (40-59) L 08/14/20 11:02 Cholesterol/HDL Ratio 7.14 % 08/14/20 11:02 Urine Color Yellow (Yellow) 08/14/20 13:25 Urine Turbidity Turbid (Clear) 08/14/20 13:25 Urine pH 5.0 (5.0-7.0) 08/14/20 13:25 Ur Specific Friona 1.020 (1.003-1.030) 08/14/20 13:25 Urine Protein 100 mg/dl mg/dL (Negative) 08/14/20 13:25 Urine Glucose (UA) Neg mg/dL (Negative) 08/14/20 13:25 Urine Ketones Tr mg/dL (Negative) 08/14/20 13:25 Urine Blood Mod (Negative) 08/14/20 13:25 Urine Nitrite Neg (Negative) 08/14/20 13:25 Urine Bilirubin Neg (Negative) 08/14/20 13:25 Urine Urobilinogen 2.0 mg/dL (<2.0) 08/14/20 13:25 Ur Leukocyte Esterase Mod (Negative) 08/14/20 13:25 Urine WBC (Auto) > 182.0 /HPF (0.0-6.0) H 08/14/20 13:25 Urine RBC (Auto) 56.0 /HPF (0.0-6.0) 08/14/20 13:25 U Epithel Cells (Auto) 2.0 /HPF (0-13.0) 08/14/20 13:25 Urine Bacteria (Auto) 3+ /HPF (Negative) 08/14/20 13:25 Urine WBC Clumps 3+ /HPF 08/14/20 13:25 Urine Mucus 2+ /HPF 08/14/20 13:25 Urine Creatinine 35.9 mg/dL (0.1-20.0) H 08/15/20 22:12 Urine Creatinine 36.0 mg/dL (0.1-20.0) H 08/15/20 22:12 Protein/Creatinin Ratio 3.20 08/15/20 22:12 Urine Sodium 77 mmol/L 08/15/20 22:12 Urine Total Protein 115 mg/dL (5-11.8) H 08/15/20 22:12 Vancomycin Trough 8.9 ug/mL (5.0-20.0) 08/16/20 16:48 Rivas/IV: Voiding Method Indwelling Catheter IV Catheter Type [Left Triple Lumen Cath Internal Jugular] IV Catheter Type [Left INT / Saline Lock Antecubital] Active Medications - Current Medications Current Medications: Generic Name Dose Route Start Last Admin Trade Name Freq PRN Reason Stop Dose Admin Lipase/Protease/Amylase 1 each 08/19/20 16:06 Lipase 10,500/Protease 25,000/Amylase 43,750 (Units) Dr Casper FEEDTUBE PRN PRN For Clogged Feeding Tube Carbamazepine 200 mg 08/15/20 14:00 08/26/20 09:52 Carbamazepine 200 Mg Tab PO 200 mg TID MARSHALL Administration Folic Acid 1 mg 08/15/20 10:00 08/26/20 09:52 Folic Acid 1 Mg Tab PO 1 mg QDAY MARSHALL Administration Heparin Sodium (Porcine) 5,000 unit 08/14/20 22:00 08/26/20 06:49 Heparin 5,000 Unit/1 Ml Vial SUB-Q 5,000 unit Q8HR MARSHALL Administration Magnesium Hydroxide 30 ml 08/14/20 15:42 Magnesium Hydroxide (Mom) Oral Liqd Udc PO Q4H PRN Constipation Midodrine 5 mg 08/21/20 17:00 08/26/20 09:54 Midodrine 2.5 Mg Tab PO 5 mg TID@0800,1200,1600 MARSHALL Administration Morphine Sulfate 2 mg 08/15/20 17:57 08/23/20 05:26 Morphine 2 Mg/1 Ml Inj IV 2 mg Q6H PRN Administration Pain, Moderate (4-6) Ondansetron HCl 4 mg 08/14/20 15:42 08/19/20 06:04 Ondansetron 4 Mg/2 Ml Inj IV 4 mg Q8H PRN Administration Nausea And Vomiting Potassium Chloride 40 meq 08/23/20 18:00 08/26/20 09:53 Potassium Chloride 20 Meq Packet FEEDTUBE 40 meq QDAY MARSHALL Administration Primidone 250 mg 08/15/20 14:00 08/26/20 09:53 Primidone 250 Mg Tab PO 250 mg TID MARSHALL Administration Simple Syrup 15 ml 08/19/20 16:06 Simple Syrup 15 Ml FEEDTUBE PRN PRN Hypoglycemia Simple Syrup 30 ml 08/19/20 16:06 Simple Syrup 15 Ml FEEDTUBE PRN PRN Hypoglycemia Sodium Bicarbonate 325 mg 08/19/20 16:06 Sodium Bicarbonate 325 Mg Tab FEEDTUBE PRN PRN For Clogged Feeding Tube Sodium Chloride 10 ml 08/14/20 22:00 08/26/20 09:54 Sodium Chloride 0.9% 10 Ml Flush Syringe IV 10 ml BID MARSHALL Administration Sodium Chloride 10 ml 08/14/20 15:42 08/25/20 01:52 Sodium Chloride 0.9% 10 Ml Flush Syringe IV 10 ml PRN PRN Administration LINE FLUSH Nutrition/Malnutrition Assess - Dietary Evaluation Nutrition/Malnutrition Findings: Nutrition Notes Start: 08/15/20 14:08 Freq: Status: Active Protocol: Document 08/21/20 12:52 CW (Rec: 08/21/20 13:10 CW [id number]) Co-Sign 08/21/20 12:52 MK Nutrition Notes Initial or Follow up Reassessment Current Diagnosis Sepsis Other Pertinent Diagnosis AMS, UTI, hypotension, wound infection, spondylosis Current Diet Jevity 1.2 at 70 mL/hr Labs/Tests Na 151 K 3.4 BG 110 Phos 2.0 Pertinent Medications KPhos 40mmol in NaCl at 83ml/ hr Height 6 ft Weight 83.9 kg [place] Body Weight (kg) 80.90 BMI 25.0 Weight Status Appropriate Subjective/Other Information FU for TF start/tolerance. Per chart pt remains in ED hold with TF running at 30ml/hr as of 08/20. Percent of energy/protein needs met: 31%/26% Burn Absent Trauma Absent Difficulty In Swallowing Current % PO Negligible Minimum of two criteria No #2 Nutrition Diagnosis Inadequate oral intake Etiology chewing/swallowing difficulites As Evidenced by Signs and Symptoms Pt failed H[employer] ADVISER evaluation #1 Nutrition Diagnosis Increased nutrient needs ( specify in comment below) Diagnosis Progress(for reassessment Continues documentation) Is patient on ventilator? No Is Patient Ambulatory and/or Out of Bed No REE-([facility]-confined to bed) [phone] Calculation Used for Recommendations [facility] Additional Notes Protein needs: 105 - 126g (1. 25-1.5g/kg ABW) Fluid needs: 1 mL/kcal Nutrition Intervention Change Diet Order: Continue TF Nutrition Support: Jevity 1.2 at 70 mL/hr Flush 200ml q4h for hypernatremia, once resolved flush 100ml q4h Kcal 2,016 Protein (gm) 93 Fluid (mL) 1,355 Add Supplement/Snack (indicate name/kcal Luciano BID /protein ) Provides kCal: 190 Provides Protein (gm) 5 Goal #1 Meet at least 75% of estimated energy and protein needs via TF Goal #2 Wound healing Anticipated Discharge Needs: Unable to determine at this time Follow-Up By: 08/26/20 Additional Comments FU for TF tolerance, labs/Na
[2020-08-26] MEDS ORDERED: SODIUM CHLORIDE 0.9% 250ML 250 ML IV ONE (18:22)
[2020-08-26] MEDS: SCOPOLAMINE TRANSDERMAL PATCH 72 HR TD SCH (20:53)
[2020-08-27] MEDS: DEXTROSE 5% IN WATER 1,000 ML IV SCH (00:08)
[2020-08-27 05:20] LABS: Basophils % (Auto) 0.3 % (0.0-1.8); Eosinophils # (Auto) 0.1 K/mm3 (0.0-0.4); Eosinophils % (Auto) 1.7 % (0.0-4.3); Hematocrit 21.4 % (35.5-45.6); Lymphocytes # (Auto) 1.5 K/mm3 (1.2-5.4); Lymphocytes % (Auto) 19.2 % (13.4-35.0); Mean Corpuscular HGB Conc 33 % (32-34); Mean Corpuscular Volume 93 fl (84-94); Monocytes # (Auto) 0.6 K/mm3 (0.0-0.8); Monocytes % (Auto) 7.7 % (0.0-7.3); Platelet Count 310 K/mm3 (140-440); Red Blood Count 2.31 M/mm3 (3.65-5.03); Red Cell Distribution Width 13.9 % (13.2-15.2)
[2020-08-27 05:59] LABS: BUN/Creatinine Ratio 16; Blood Urea Nitrogen 8 mg/dL (9-20); Calcium 7.3 mg/dL (8.4-10.2); Hemolysis Index 6
--- NOTE | 2020-08-27 08:28 | Progress Note ---
Assessment and Plan Assessment and plan: --Anemia; significant drop in H&H Current Visit: Yes Status: Acute Plan to address problem: no external evidence of bleeding Gradual drop from 14 to Hb today 7.0 Check stool for occult blood, GI already following Type and cross transfuse 2 units of PRBC Pending PEG placement Closely monitor H&H and transfuse additional PRBC as needed --dysphagia/failed swallow eval/for PEG placement Current Visit: Yes Status: Acute Plan to address problem: GI consult [informed Dr.Chokshi BREEN] N.p.o. from midnight, PEG placement today Speech therapist evaluated Recommend PEG placement Intermittent suction of oral secretions --Severe protein calorie malnutrition; Current Visit: Yes Status: Acute Plan to address problem: Nutrition supplements, Ensure plus Dietitian following, Tube feeding per protocol Dysphagia, patient needs PEG placement -- Septic shock/resolved Current Visit: Yes Status: Acute Plan to address problem: Monitor off Levophed, with underlying sepsis UTI and infected heel, continue antibiotics IV fluids, Blood cultures-no growth --Sepsis secondary to UTI (urinary tract infection) Current Visit: Yes Status: Acute Plan to address problem: Completed antibiotics --Chronic sacral wound Current Visit: Yes Status: Acute Plan to address problem: wound care, completed antibiotics --Leukocytosis/sepsis Current Visit: Yes Status: Acute Plan to address problem: WBC trending down Completed antibiotics --Hypernatremia; secondary to dehydration D5 W IV fluids, closely monitor electrolytes --DVT prophylaxis Current Visit: Yes Status: Acute Plan to address problem: Subcu heparin --Full code status Current Visit: Yes Status: Acute Plan to address problem: Patient is a full code. We will closely monitor the patient and adjust management as needed Plan of care reviewed with the patient and his nurse Follow GI evaluation and recommendation Follow PEG procedure, PEG feeds per protocol DC planning back to SNF when medically stable Plan of care reviewed with the patient and his nurse 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 and timber killer following 08/19/2020; multiple electrolyte abnormalities, hypomagnesemia, hypophosphatemia, hypokalemia, replenish per protocol Patient remains in septic shock, on Levophed, patient is critically ill NG tube placement, tube feeds per protocol 08/20/2020; remains critically ill, septic shock on Levophed, sepsis secondary to UTI on cefepime and Vanco Cultures negative to date, persistent electrolyte abnormalities hypokalemia, hypophosphatemia, hypomagnesemia We will closely monitor electrolytes and adjust as needed 08/21/2020; patient remains Levophed dependent, titrate and DC Receiving tube feeding, continues to have hypokalemia and hypophosphatemia receiving IV K-Phos 08/22/2020; monitor the patient off Levophed, continue [place] feeds, follow speech therapy evaluation and recommendation If no improvement PEG placement, correct electrolyte abnormalities 08/27/2020; scheduled for PEG today, GI consulted, patient n.p.o. status Significant drop in H&H, will transfuse 2 units of PRBC prior to procedure Plan of care reviewed with the patient and his nurse Disposition; placement when patient is medically stable History Interval history: I have seen and examined the patient at the bedside patient's chart and medications reviewed Patient is scheduled for PEG placement today n.p.o. from midnight Patient also has significant drop in H&H no external evidence of bleeding Patient has no new complaints Vital signs reviewed Hospitalist Physical - Constitutional Vitals: Temp Pulse Resp BP Pulse Ox 97.8 F 90 17 118/55 90 08/27/20 03:59 08/27/20 03:59 08/27/20 03:59 08/27/20 03:59 08/27/20 03:59 General appearance: Present: no acute distress, well-nourished - EENT Eyes: Present: PERRL, EOM intact - Neck Neck: Present: supple, normal ROM - Respiratory Respiratory effort: normal Respiratory: bilateral: diminished, negative: rales, rhonchi, wheezing - Cardiovascular Rhythm: regular Heart Sounds: Present: S1 & S2 - Extremities Extremities: no ischemia, No edema, abnormal (Chronic wounds) - Abdominal General gastrointestinal: soft, non-tender, non-distended, normal bowel sounds - Integumentary Integumentary: Present: clear, warm - Psychiatric Psychiatric: appropriate mood/affect, cooperative - Neurologic Neurologic: moves all extremities HEART Score - HEART Score Troponin: Troponin T 0.034 ng/mL (0.00-0.029) H 08/14/20 11:02 Results - Labs CBC & Chem 7: 08/27/20 04:54 08/27/20 04:54 Labs: Laboratory Last Values WBC 7.7 K/mm3 (4.5-11.0) 08/27/20 04:54 RBC 2.31 M/mm3 (3.65-5.03) L 08/27/20 04:54 Hgb 7.0 gm/dl (11.8-15.2) L 08/27/20 04:54 Hct 21.4 % (35.5-45.6) L 08/27/20 04:54 MCV 93 fl (84-94) 08/27/20 04:54 MCH 30 pg (28-32) 08/27/20 04:54 MCHC 33 % (32-34) 08/27/20 04:54 RDW 13.9 % (13.2-15.2) 08/27/20 04:54 Plt Count 310 K/mm3 (140-440) 08/27/20 04:54 Lymph % (Auto) 19.2 % (13.4-35.0) 08/27/20 04:54 [place] % (Auto) 7.7 % (0.0-7.3) H 08/27/20 04:54 Eos % (Auto) 1.7 % (0.0-4.3) 08/27/20 04:54 Baso % (Auto) 0.3 % (0.0-1.8) 08/27/20 04:54 Lymph # (Auto) 1.5 K/mm3 (1.2-5.4) 08/27/20 04:54 [place] # (Auto) 0.6 K/mm3 (0.0-0.8) 08/27/20 04:54 Eos # (Auto) 0.1 K/mm3 (0.0-0.4) 08/27/20 04:54 Baso # (Auto) 0.0 K/mm3 (0.0-0.1) 08/27/20 04:54 Add Manual Diff Complete 08/20/20 05:26 Total Counted 100 08/20/20 05:26 Seg Neutrophils % 71.1 % (40.0-70.0) H 08/27/20 04:54 Seg Neuts % (Manual) 78.0 % (40.0-70.0) H 08/20/20 05:26 Band Neutrophils % 5.0 % 08/15/20 14:22 Lymphocytes % (Manual) 11.0 % (13.4-35.0) L 08/20/20 05:26 Monocytes % (Manual) 6.0 % (0.0-7.3) 08/20/20 05:26 Eosinophils % (Manual) 5.0 % (0.0-4.3) H 08/20/20 05:26 Metamyelocytes % 1.0 % 08/15/20 14:22 Nucleated RBC % Not Reportable 08/20/20 05:26 Seg Neutrophils # 5.5 K/mm3 (1.8-7.7) 08/27/20 04:54 Seg Neutrophils # Man 6.7 K/mm3 (1.8-7.7) 08/20/20 05:26 Band Neutrophils # 0.0 K/mm3 08/20/20 05:26 Lymphocytes # (Manual) 0.9 K/mm3 (1.2-5.4) L 08/20/20 05:26 Abs React Lymphs (Man) 0.0 K/mm3 08/20/20 05:26 Monocytes # (Manual) 0.5 K/mm3 (0.0-0.8) 08/20/20 05:26 Eosinophils # (Manual) 0.4 K/mm3 (0.0-0.4) 08/20/20 05:26 Basophils # (Manual) 0.0 K/mm3 (0.0-0.1) 08/20/20 05:26 Metamyelocytes # 0.0 K/mm3 08/20/20 05:26 Myelocytes # 0.0 K/mm3 08/20/20 05:26 Promyelocytes # 0.0 K/mm3 08/20/20 05:26 Blast Cells # 0.0 K/mm3 08/20/20 05:26 WBC Morphology Not Reportable 08/20/20 05:26 Hypersegmented Neuts Not Reportable 08/20/20 05:26 Hyposegmented Neuts Not Reportable 08/20/20 05:26 Hypogranular Neuts Not Reportable 08/20/20 05:26 Smudge Cells Not Reportable 08/20/20 05:26 Toxic Granulation Not Reportable 08/20/20 05:26 Toxic Vacuolation Not Reportable 08/20/20 05:26 Dohle Bodies Not Reportable 08/20/20 05:26 Pelger-Huet Anomaly Not Reportable 08/20/20 05:26 Kassi Rods Not Reportable 08/20/20 05:26 Platelet Estimate Consistent w auto 08/20/20 05:26 Clumped Platelets Not Reportable 08/20/20 05:26 Plt Clumps, EDTA Not Reportable 08/20/20 05:26 Large Platelets Not Reportable 08/20/20 05:26 Giant Platelets Not Reportable 08/20/20 05:26 Platelet Satelliting Not Reportable 08/20/20 05:26 Plt Morphology Comment Not Reportable 08/20/20 05:26 RBC Morphology Not Reportable 08/20/20 05:26 Dimorphic RBCs Not Reportable 08/20/20 05:26 Polychromasia Not Reportable 08/20/20 05:26 Hypochromasia Not Reportable 08/20/20 05:26 Poikilocytosis Not Reportable 08/20/20 05:26 Anisocytosis Not Reportable 08/20/20 05:26 Microcytosis Not Reportable 08/20/20 05:26 Macrocytosis Not Reportable 08/20/20 05:26 Spherocytes Not Reportable 08/20/20 05:26 Pappenheimer Bodies Not Reportable 08/20/20 05:26 Sickle Cells Not Reportable 08/20/20 05:26 Target Cells Not Reportable 08/20/20 05:26 Tear Drop Cells Not Reportable 08/20/20 05:26 Ovalocytes Not Reportable 08/20/20 05:26 Helmet Cells Not Reportable 08/20/20 05:[address] [place] Bodies Not Reportable 08/20/20 05:26 Romeo Rings Not Reportable 08/20/20 05:26 [place]ley Cells Not Reportable 08/20/20 05:26 Bite Cells Not Reportable 08/20/20 05:26 Crenated Cell Not Reportable 08/20/20 05:26 Elliptocytes Not Reportable 08/20/20 05:26 Acanthocytes (Spur) Not Reportable 08/20/20 05:26 Rouleaux Not Reportable 08/20/20 05:26 Hemoglobin C Crystals Not Reportable 08/20/20 05:26 Schistocytes Not Reportable 08/20/20 05:26 Malaria parasites Not Reportable 08/20/20 05:26 Richard Bodies Not Reportable 08/20/20 05:26 Hem Pathologist Commnt No 08/20/20 05:26 PT 15.4 Sec. (12.2-14.9) H 08/15/20 05:37 INR 1.24 (0.87-1.13) H 08/15/20 05:37 Sodium 138 mmol/L (137-145) D 08/27/20 04:54 Potassium 3.9 mmol/L (3.6-5.0) 08/27/20 04:54 Chloride 105.1 mmol/L (98-107) 08/27/20 04:54 Carbon Dioxide 27 mmol/L (22-30) 08/27/20 04:54 Anion Gap 10 mmol/L 08/27/20 04:54 BUN 8 mg/dL (9-20) L 08/27/20 04:54 Creatinine 0.5 mg/dL (0.8-1.3) L 08/27/20 04:54 Estimated GFR > 60 ml/min 08/27/20 04:54 BUN/Creatinine Ratio 16 % 08/27/20 04:54 Glucose 119 mg/dL (75-100) H 08/27/20 04:54 POC Glucose 96 mg/dL (70-105) 08/27/20 05:14 Lactic Acid 1.50 mmol/L (0.7-2.0) 08/14/20 18:37 Calcium 7.3 mg/dL (8.4-10.2) L 08/27/20 04:54 Phosphorus 3.20 mg/dL (2.5-4.5) 08/26/20 20:17 Magnesium 1.70 mg/dL (1.7-2.3) 08/27/20 04:54 Total Bilirubin 0.20 mg/dL (0.1-1.2) 08/24/20 07:09 Direct Bilirubin < 0.2 mg/dL (0-0.2) 08/16/20 05:20 Indirect Bilirubin 0.0 mg/dL 08/16/20 05:20 AST 10 units/L (5-40) 08/24/20 07:09 ALT 10 units/L (7-56) 08/24/20 07:09 Alkaline Phosphatase 53 units/L (35-129) 08/24/20 07:09 Total Creatine Kinase 177 units/L (55-170) H 08/15/20 14:22 Troponin T 0.034 ng/mL (0.00-0.029) H 08/14/20 11:02 Total Protein 5.8 g/dL (6.3-8.2) L 08/24/20 07:09 Albumin 1.8 g/dL (3.9-5) L 08/24/20 07:09 Albumin/Globulin Ratio 0.5 % 08/24/20 07:09 Triglycerides 370 mg/dL (2-149) H 08/14/20 11:02 Cholesterol 243 mg/dL (50-199) H 08/14/20 11:02 LDL Cholesterol Direct 130 mg/dL (50-130) 08/14/20 11:02 HDL Cholesterol 34 mg/dL (40-59) L 08/14/20 11:02 Cholesterol/HDL Ratio 7.14 % 08/14/20 11:02 Urine Color Yellow (Yellow) 08/14/20 13:25 Urine Turbidity Turbid (Clear) 08/14/20 13:25 Urine pH 5.0 (5.0-7.0) 08/14/20 13:25 Ur Specific [place] 1.020 (1.003-1.030) 08/14/20 13:25 Urine Protein 100 mg/dl mg/dL (Negative) 08/14/20 13:25 Urine Glucose (UA) Neg mg/dL (Negative) 08/14/20 13:25 Urine Ketones Tr mg/dL (Negative) 08/14/20 13:25 Urine Blood Mod (Negative) 08/14/20 13:25 Urine Nitrite Neg (Negative) 08/14/20 13:25 Urine Bilirubin Neg (Negative) 08/14/20 13:25 Urine Urobilinogen 2.0 mg/dL (<2.0) 08/14/20 13:25 Ur Leukocyte Esterase Mod (Negative) 08/14/20 13:25 Urine WBC (Auto) > 182.0 /HPF (0.0-6.0) H 08/14/20 13:25 Urine RBC (Auto) 56.0 /HPF (0.0-6.0) 08/14/20 13:25 U Epithel Cells (Auto) 2.0 /HPF (0-13.0) 08/14/20 13:25 Urine Bacteria (Auto) 3+ /HPF (Negative) 08/14/20 13:25 Urine WBC Clumps 3+ /HPF 08/14/20 13:25 Urine Mucus 2+ /HPF 08/14/20 13:25 Urine Creatinine 35.9 mg/dL (0.1-20.0) H 08/15/20 22:12 Urine Creatinine 36.0 mg/dL (0.1-20.0) H 08/15/20 22:12 Protein/Creatinin Ratio 3.20 08/15/20 22:12 Urine Sodium 77 mmol/L 08/15/20 22:12 Urine Total Protein 115 mg/dL (5-11.8) H 08/15/20 22:12 Vancomycin Trough 8.9 ug/mL (5.0-20.0) 08/16/20 16:48 Rivas/IV: Voiding Method Indwelling Catheter IV Catheter Type [Left Triple Lumen Cath Internal Jugular] IV Catheter Type [Left INT / Saline Lock Antecubital] Active Medications - Current Medications Current Medications: Generic Name Dose Route Start Last Admin Trade Name Freq PRN Reason Stop Dose Admin Lipase/Protease/Amylase 1 each 08/19/20 16:06 Lipase 10,500/Protease 25,000/Amylase 43,750 (Units) Dr Casper FEEDTUBE PRN PRN For Clogged Feeding Tube Carbamazepine 200 mg 08/15/20 14:00 08/26/20 20:52 Carbamazepine 200 Mg Tab PO 200 mg TID MARSHALL Administration Folic Acid 1 mg 08/15/20 10:00 08/26/20 09:52 Folic Acid 1 Mg Tab PO 1 mg QDAY MARSHALL Administration Dextrose 1,000 mls @ 100 mls/hr 08/26/20 19:00 08/27/20 00:08 D5w IV 100 mls/hr DIRECT MARSHALL Administration Magnesium Hydroxide 30 ml 08/14/20 15:42 Magnesium Hydroxide (Mom) Oral Liqd Udc PO Q4H PRN Constipation Midodrine 5 mg 08/21/20 17:00 08/26/20 17:33 Midodrine 2.5 Mg Tab PO 5 mg TID@0800,1200,1600 MARSHALL Administration Morphine Sulfate 2 mg 08/15/20 17:57 08/23/20 05:26 Morphine 2 Mg/1 Ml Inj IV 2 mg Q6H PRN Administration Pain, Moderate (4-6) Ondansetron HCl 4 mg 08/14/20 15:42 08/19/20 06:04 Ondansetron 4 Mg/2 Ml Inj IV 4 mg Q8H PRN Administration Nausea And Vomiting Potassium Chloride 40 meq 08/23/20 18:00 08/26/20 09:53 Potassium Chloride 20 Meq Packet FEEDTUBE 40 meq QDAY MARSHALL Administration Primidone 250 mg 08/15/20 14:00 08/26/20 20:52 Primidone 250 Mg Tab PO 250 mg TID MARSHALL Administration Scopolamine 1 each 08/26/20 20:00 08/26/20 20:53 Scopolamine Transdermal Patch 72 Hr TD 1 each Q72H MARSHALL Administration Simple Syrup 15 ml 08/19/20 16:06 Simple Syrup 15 Ml FEEDTUBE PRN PRN Hypoglycemia Simple Syrup 30 ml 08/19/20 16:06 Simple Syrup 15 Ml FEEDTUBE PRN PRN Hypoglycemia Sodium Bicarbonate 325 mg 08/19/20 16:06 Sodium Bicarbonate 325 Mg Tab FEEDTUBE PRN PRN For Clogged Feeding Tube Sodium Chloride 10 ml 08/14/20 22:00 08/26/20 21:08 Sodium Chloride 0.9% 10 Ml Flush Syringe IV 10 ml BID MARSHALL Administration Sodium Chloride 10 ml 08/14/20 15:42 08/25/20 01:52 Sodium Chloride 0.9% 10 Ml Flush Syringe IV 10 ml PRN PRN Administration LINE FLUSH Nutrition/Malnutrition Assess - Dietary Evaluation Nutrition/Malnutrition Findings: Nutrition Notes Start: 08/15/20 14:08 Freq: Status: Active Protocol: Document 08/26/20 12:29 YONAS (Rec: 08/26/20 12:39 YONAS [id number]) Co-Sign 08/26/20 12:29 LP Nutrition Notes Initial or Follow up Reassessment Current Diagnosis Sepsis Other Pertinent Diagnosis AMS, UTI, hypotension, wound infection, spondylosis Current Diet Jevity 1.2 at 70 mL/hr Labs/Tests 08/24/20: Na 146 08/22/20: Phos 1.8 Pertinent Medications KCl 40 mEq Height 6 ft Weight 110.7 kg [place] Body Weight (kg) 80.90 BMI 33.0 Weight change and time frame Wt increased noted, likely an error Weight Status Obese Subjective/Other Information F/u TF and Na labs. No new Na lab. TF running at goal and tolerated. FABRIC SOURCER noted pt had no desire to eat and recommends PEG due to dysphagia. Pt said he wanted to eat. Noted neurological assessment not WNL. Percent of energy/protein needs met: 96%/89% Burn Absent Trauma Absent Difficulty In Swallowing Skin Integrity/Comment Bhaskar Score of 11 Current % PO Negligible Minimum of two criteria No #2 Nutrition Diagnosis Inadequate oral intake As Evidenced by Signs and Symptoms Pt failed FABRIC SOURCER evaluation and has TF #1 Nutrition Diagnosis Increased nutrient needs ( specify in comment below) Diagnosis Progress(for reassessment Continues documentation) Is patient on ventilator? No Is Patient Ambulatory and/or Out of Bed No REE-([facility]-confined to bed) 2255.964 Kcal/Kg value to use for calculation 18 Approximate Energy Requirements Using 1993 kcal/Kg Calculation Used for Recommendations Kcal/kg Additional Notes Protein needs: 105 - 126g (1. 25-1.5g/kg ABW) Fluid needs: 1 mL/kcal Nutrition Intervention Change Diet Order: Continue TF Nutrition Support: Jevity 1.2 at 70 mL/hr Flush 200ml q4h for hypernatremia, once resolved flush 100ml q4h Kcal 2,016 Protein (gm) 93 Fluid (mL) 1,355 Add Supplement/Snack (indicate name/kcal Luciano BID /protein ) Provides kCal: 190 Provides Protein (gm) 5 Goal #1 Meet at least 75% of estimated energy and protein needs via TF Goal #2 Wound healing Anticipated Discharge Needs: Unable to determine at this time Follow-Up By: 08/28/20 Additional Comments F/u stable TF and pt preferences if able
[2020-08-27] MEDS ORDERED: SODIUM CHLORIDE 0.9% 500 ML 500 ML IV NR (09:17)
[2020-08-27] MEDS: carBAMazepine 200 MG TAB PO SCH ×3 (13:18→20:44)
[2020-08-27] MEDS: PRIMIDONE 250 MG TAB PO SCH ×3 (13:18→20:44)
[2020-08-27] MEDS: MIDODRINE 2.5 MG TAB PO SCH ×3 (13:19→16:04)
[2020-08-27] MEDS: FOLIC ACID 1 MG TAB PO SCH (13:21)
[2020-08-27] MEDS: POTASSIUM CHLORIDE 20 MEQ PACKET FEEDTUBE SCH (13:21)
--- NOTE | 2020-08-27 15:38 | Consultation ---
History of Present Illness - Reason for Consult Consult date: 08/27/20 G-tube placement Requesting physician: ÁNGEL RENE - History of Present Illness Mr. Buckley is a 75 yo BM, [facility] resident x 1.5 yrs, admitted, 08/14 with AMS and UTI sepsis. He has recovered well. He is getting TF via NG tube. Speech Path has recommended G-tube placement, with one factor being that pt does not want to eat. Pt awake and alert and speaks appropriately. States he was eating at [facility], though would choke at times, which he attributed to eating too much. No pneumonia, F/C. No abd pain, N/V, weight loss. Went into [facility] 1.5 yrs ago, after becoming weak and unable to walk. States he wants to eat, and does not want a feeding tube. Meds reviewed. 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) Family history: no significant family history Medications and Allergies Allergies Allergy/AdvReac Type Severity Reaction Status Date / Time No Known Allergies Allergy Verified 01/10/19 02:20 Home Medications Medication Instructions Recorded Confirmed Last Taken Type Folic Acid [Folvite] 1 mg PO QDAY 01/10/19 08/14/20 Unknown History Primidone [Mysoline] 250 mg PO TID 01/10/19 08/14/20 Unknown History carBAMazepine [Carbamazepine] 200 mg PO TID 01/10/19 08/14/20 Unknown History oxyCODONE /ACETAMINOPHEN [Percocet 1 tab PO Q6H PRN #14 tablet 01/12/19 08/14/20 Unknown Rx 5/325 mg] Aspirin [Aspirin BABY CHEW TAB] 81 mg PO QDAY 08/15/20 08/15/20 Unknown History AtorvaSTATin [Lipitor] 40 mg PO QHS 08/15/20 08/15/20 Unknown History Citalopram Hydrobromide 20 mg PO QDAY 08/15/20 08/15/20 Unknown History [Citalopram HBr] Ergocalciferol [Vitamin D2] 1 cap PO QWEEK 08/15/20 08/15/20 Unknown History Folic Acid [Folvite] 1 mg PO QDAY 08/15/20 08/15/20 Unknown History Midodrine [Proamatine] 2.5 mg PO BID 08/15/20 08/15/20 Unknown History Mirtazapine 7.5 mg PO QHS 08/15/20 08/15/20 Unknown History guaiFENesin ER [Mucinex ER] 600 mg PO Q12H 08/15/20 08/15/20 Unknown History oxyCODONE /ACETAMINOPHEN [Percocet 1 tab PO Q6HR PRN 08/15/20 08/15/20 Unknown History 5/325] tiZANidine [Zanaflex 4mg TAB] 4 mg PO BID 08/15/20 08/15/20 Unknown History Active Meds: Active Medications Lipase/Protease/Amylase (Lipase 10,500/Protease 25,000/Amylase 43,750 (Units) Dr Casper) 1 each FEEDTUBE PRN PRN PRN Reason: For Clogged Feeding Tube Carbamazepine (Carbamazepine 200 Mg Tab) 200 mg PO TID [facility] Last Admin: 08/27/20 13:19 Dose: Not Given Documented by: Folic Acid (Folic Acid 1 Mg Tab) 1 mg PO QDAY [facility] Last Admin: 08/27/20 13:21 Dose: 1 mg Documented by: Dextrose (D5w) 1,000 mls @ 100 mls/hr IV DIRECT [facility] Last Admin: 08/27/20 00:08 Dose: 100 mls/hr Documented by: Sodium Chloride (Nacl 0.9% 500 Ml) 500 mls @ 0 mls/hr IV ONCE NR Stop: 08/27/20 23:59 Magnesium Hydroxide (Magnesium Hydroxide (Mom) Oral Liqd Udc) 30 ml PO Q4H PRN PRN Reason: Constipation Midodrine (Midodrine 2.5 Mg Tab) 5 mg PO TID@0800,1200,1600 [facility] Last Admin: 08/27/20 13:19 Dose: 5 mg Documented by: Morphine Sulfate (Morphine 2 Mg/1 Ml Inj) 2 mg IV Q6H PRN PRN Reason: Pain, Moderate (4-6) Last Admin: 08/23/20 05:26 Dose: 2 mg Documented by: Ondansetron HCl (Ondansetron 4 Mg/2 Ml Inj) 4 mg IV Q8H PRN PRN Reason: Nausea And Vomiting Last Admin: 08/19/20 06:04 Dose: 4 mg Documented by: Potassium Chloride (Potassium Chloride 20 Meq Packet) 40 meq FEEDTUBE QDAY [facility] Last Admin: 08/27/20 13:21 Dose: 40 meq Documented by: Primidone (Primidone 250 Mg Tab) 250 mg PO TID [facility] Last Admin: 08/27/20 13:18 Dose: 250 mg Documented by: Scopolamine (Scopolamine Transdermal Patch 72 Hr) 1 each TD Q72H [facility] Last Admin: 08/26/20 20:53 Dose: 1 each Documented by: Simple Syrup (Simple Syrup 15 Ml) 15 ml FEEDTUBE PRN PRN PRN Reason: Hypoglycemia Simple Syrup (Simple Syrup 15 Ml) 30 ml FEEDTUBE PRN PRN PRN Reason: Hypoglycemia Sodium Bicarbonate (Sodium Bicarbonate 325 Mg Tab) 325 mg FEEDTUBE PRN PRN PRN Reason: For Clogged Feeding Tube Sodium Chloride (Sodium Chloride 0.9% 10 Ml Flush Syringe) 10 ml IV BID [facility] Last Admin: 08/27/20 13:21 Dose: 10 ml Documented by: Sodium Chloride (Sodium Chloride 0.9% 10 Ml Flush Syringe) 10 ml IV PRN PRN PRN Reason: LINE FLUSH Last Admin: 08/25/20 01:52 Dose: 10 ml Documented by: Review of Systems All systems: negative (as per HPI) Exam - Constitutional Vitals: Temp Pulse Resp BP Pulse Ox 98 F 89 20 95/49 96 08/27/20 15:31 08/27/20 15:31 08/27/20 15:31 08/27/20 15:31 08/27/20 15:31 General appearance: Present: no acute distress - EENT Eyes: Present: PERRL, EOM intact ENT: hearing intact - Respiratory Respiratory effort: normal Respiratory: bilateral: CTA - Cardiovascular Rhythm: regular Heart Sounds: Present: S1 & S2 - Abdominal General gastrointestinal: Present: soft, non-tender Results - Labs CBC & Chem 7: 08/27/20 04:54 08/27/20 04:54 Labs: Abnormal lab results 08/26/20 08/27/20 08/27/20 Range/Units 23:39 04:54 04:54 RBC 2.31 L (3.65-5.03) M/mm3 Hgb 7.0 L (11.8-15.2) gm/dl Hct 21.4 L (35.5-45.6) % [place] % (Auto) 7.7 H (0.0-7.3) % Seg Neutrophils % 71.1 H (40.0-70.0) % BUN 8 L (9-20) mg/dL Creatinine 0.5 L (0.8-1.3) mg/dL Glucose 119 H (75-100) mg/dL POC Glucose 64 L (70-105) mg/dL Calcium 7.3 L (8.4-10.2) mg/dL Crossmatch 08/27/20 Range/Units 10:42 RBC (3.65-5.03) M/mm3 Hgb (11.8-15.2) gm/dl Hct (35.5-45.6) % [place] % (Auto) (0.0-7.3) % Seg Neutrophils % (40.0-70.0) % BUN (9-20) mg/dL Creatinine (0.8-1.3) mg/dL Glucose (75-100) mg/dL POC Glucose (70-105) mg/dL Calcium (8.4-10.2) mg/dL Crossmatch See Detail Assessment and Plan 1. G-tube placement - discussed extensively with pt. Advised him that if he burris s difficulty swallowing, there is a risk of aspiration and pneumonia. Pt understands, and has no desire for G-tube placement whatsoever at this time. - Speech eval with modified barium swallow to guide diet and modifications if available. 2. Anemia - etiology unclear. Chronic with recent decline in hospital, possibly due to chronic illness and phlebotomy. - empiric PPI - check iron levels and stool for occult blood
[2020-08-27] MEDS: SIMPLE SYRUP 15 ML FEEDTUBE PRN (17:26)
[2020-08-27] MEDS ORDERED: SIMPLE SYRUP 15 ML FEEDTUBE PRN ×2 (19:54)
[2020-08-27] MEDS ORDERED: SODIUM BICARBONATE 325 MG TAB FEEDTUBE PRN (19:54)
[2020-08-27] MEDS ORDERED: LIPASE 10,500/PROTEASE 25,000/AMYLASE 43,750 (UNITS) DR CAP FEEDTUBE PRN (19:54)
[2020-08-27] MEDS ORDERED: DEXTROSE 50% IN WATER (25GM) 50 ML SYRINGE IV ONE (23:59)
[2020-08-28] MEDS ORDERED: DEXTROSE 50% IN WATER (25GM) 50 ML SYRINGE IV ONE ×2 (02:28→05:05)
[2020-08-28] MEDS: DEXTROSE 5% IN WATER 1,000 ML IV SCH ×2 (05:18→13:06)
[2020-08-28 07:32] LABS: Hematocrit 28.2 % (35.5-45.6); Hemoglobin 9.8 gm/dl (11.8-15.2)
[2020-08-28 07:43] LABS: Iron 35 ug/dL (49-181); Total Iron Binding Capacity 112 mcg/dL (250-450)
[2020-08-28] MEDS: MIDODRINE 2.5 MG TAB PO SCH ×3 (08:00→15:45)
[2020-08-28] MEDS: carBAMazepine 200 MG TAB PO SCH ×3 (08:00→22:52)
[2020-08-28] MEDS: POTASSIUM CHLORIDE 20 MEQ PACKET FEEDTUBE SCH (09:59)
[2020-08-28] MEDS: FOLIC ACID 1 MG TAB PO SCH (10:00)
[2020-08-28] MEDS: PRIMIDONE 250 MG TAB PO SCH ×3 (10:01→22:52)
[2020-08-28] MEDS: SIMPLE SYRUP 15 ML FEEDTUBE PRN ×2 (10:02→10:10)
--- NOTE | 2020-08-28 15:08 | Fluoroscopy Report ---
Modified barium swallow Indication: Dysphagia Technique: Swallowing was evaluated in the lateral position under direct fluoroscopy. Findings: The patient was evaluated with puree, mixed, and thin consistencies. There was early spill with all consistencies. Swallowing was otherwise normal. Impression: Early spill with all consistencies. Otherwise normal exam. Fluoroscopic time: 1.1 minutes Number of fluoroscopic images: 1 Signer Name: Prashanth Colindres MD Signed: 08/28/2020 3:04 PM Workstation Name: [id number]
--- NOTE | 2020-08-28 17:16 | Progress Note ---
Assessment and Plan 1. G-tube placement - discussed extensively with pt. Advised him that if he has difficulty swallowing, there is a risk of aspiration and pneumonia. Pt understands, and has no desire for G-tube placement whatsoever at this time. - Speech eval with modified barium swallow showed NO aspiration. Pt may eat diet as per Speech note. - NO NEED for PEG tube. 2. Anemia - etiology unclear. Chronic with recent decline in hospital, possibly due to chronic illness and phlebotomy. - empiric PPI - Hgb stable at 9.8, with iron sat'n = 33% - further evaluation as outpatient. Will sign off. Please call as needed. Subjective Date of service: 08/28/20 Principal diagnosis: FAZAL Interval history: Pt pulled out NGT. Denies discomfort. Objective - Constitutional Vitals: Vital Signs - 12hr 08/28/20 08/28/20 08/28/20 08:42 10:00 12:00 Temperature 97.8 F 98.3 F Pulse Rate 89 Pulse Rate [ 67 Left Radial] Pulse Rate [ 67 Right Radial] Respiratory 18 18 Rate Blood Pressure 122/72 O2 Sat by Pulse Oximetry 08/28/20 13:44 Temperature Pulse Rate 82 Pulse Rate [ Left Radial] Pulse Rate [ Right Radial] Respiratory Rate Blood Pressure 115/61 O2 Sat by Pulse 88 Oximetry General appearance: Present: no acute distress - EENT Eyes: PERRL, EOM intact ENT: hearing intact - Respiratory Respiratory effort: normal - Gastrointestinal General gastrointestinal: Present: soft, non-tender - Labs CBC & Chem 7: 08/28/20 06:51 08/27/20 04:54 Labs: Abnormal lab results 08/27/20 08/27/20 08/27/20 Range/Units 02:40 02:40 10:42 Hgb (11.8-15.2) gm/dl Hct (35.5-45.6) % POC Glucose (70-105) mg/dL Iron 35 L (49-181) ug/dL TIBC 112 L (250-450) mcg/dL Ferritin 627.6 H (30.0-300.0) ng/mL Crossmatch See Detail 08/27/20 08/27/20 08/28/20 Range/Units 16:48 23:35 02:25 Hgb (11.8-15.2) gm/dl Hct (35.5-45.6) % POC Glucose 59 L 61 L 66 L (70-105) mg/dL Iron (49-181) ug/dL TIBC (250-450) mcg/dL Ferritin (30.0-300.0) ng/mL Crossmatch 08/28/20 08/28/20 Range/Units 06:51 08:54 Hgb 9.8 L (11.8-15.2) gm/dl Hct 28.2 L D (35.5-45.6) % POC Glucose 54 L (70-105) mg/dL Iron (49-181) ug/dL TIBC (250-450) mcg/dL Ferritin (30.0-300.0) ng/mL Crossmatch Medications & Allergies - Medications Allergies/Adverse Reactions: Allergies No Known Allergies Allergy (Verified 01/10/19 02:20) Home Medications: Home Medications Medication Instructions Recorded Confirmed Last Taken Type Folic Acid [Folvite] 1 mg PO QDAY 01/10/19 08/14/20 Unknown History Primidone [Mysoline] 250 mg PO TID 01/10/19 08/14/20 Unknown History carBAMazepine [Carbamazepine] 200 mg PO TID 01/10/19 08/14/20 Unknown History oxyCODONE /ACETAMINOPHEN [Percocet 1 tab PO Q6H PRN #14 tablet 01/12/19 08/14/20 Unknown Rx 5/325 mg] Aspirin [Aspirin BABY CHEW TAB] 81 mg PO QDAY 08/15/20 08/15/20 Unknown History AtorvaSTATin [Lipitor] 40 mg PO QHS 08/15/20 08/15/20 Unknown History Citalopram Hydrobromide 20 mg PO QDAY 08/15/20 08/15/20 Unknown History [Citalopram HBr] Ergocalciferol [Vitamin D2] 1 cap PO QWEEK 08/15/20 08/15/20 Unknown History Folic Acid [Folvite] 1 mg PO QDAY 08/15/20 08/15/20 Unknown History Midodrine [Proamatine] 2.5 mg PO BID 08/15/20 08/15/20 Unknown History Mirtazapine 7.5 mg PO QHS 08/15/20 08/15/20 Unknown History guaiFENesin ER [Mucinex ER] 600 mg PO Q12H 08/15/20 08/15/20 Unknown History oxyCODONE /ACETAMINOPHEN [Percocet 1 tab PO Q6HR PRN 08/15/20 08/15/20 Unknown History 5/325] tiZANidine [Zanaflex 4mg TAB] 4 mg PO BID 08/15/20 08/15/20 Unknown History Active Medications: Generic Name Dose Route Start Last Admin Trade Name Freq PRN Reason Stop Dose Admin Lipase/Protease/Amylase 1 each 08/19/20 16:06 Lipase 10,500/Protease 25,000/Amylase 43,750 (Units) Dr Casper FEEDTUBE PRN PRN For Clogged Feeding Tube Carbamazepine 200 mg 08/15/20 14:00 08/28/20 13:57 Carbamazepine 200 Mg Tab PO Not Given TID MARSHALL Folic Acid 1 mg 08/15/20 10:00 08/28/20 10:00 Folic Acid 1 Mg Tab PO 1 mg QDAY MARSHALL Administration Dextrose 1,000 mls @ 120 mls/hr 08/26/20 19:00 08/28/20 13:06 D5w IV 120 mls/hr DIRECT MARSHALL Administration Magnesium Hydroxide 30 ml 08/14/20 15:42 Magnesium Hydroxide (Mom) Oral Liqd Udc PO Q4H PRN Constipation Midodrine 5 mg 08/21/20 17:00 08/28/20 15:45 Midodrine 2.5 Mg Tab PO 5 mg TID@0800,1200,1600 MARSHALL Administration Morphine Sulfate 2 mg 08/15/20 17:57 08/23/20 05:26 Morphine 2 Mg/1 Ml Inj IV 2 mg Q6H PRN Administration Pain, Moderate (4-6) Ondansetron HCl 4 mg 08/14/20 15:42 08/19/20 06:04 Ondansetron 4 Mg/2 Ml Inj IV 4 mg Q8H PRN Administration Nausea And Vomiting Potassium Chloride 40 meq 08/23/20 18:00 08/28/20 09:59 Potassium Chloride 20 Meq Packet FEEDTUBE 40 meq QDAY MARSHALL Administration Primidone 250 mg 08/15/20 14:00 08/28/20 13:57 Primidone 250 Mg Tab PO Not Given TID MARSHALL Scopolamine 1 each 08/26/20 20:00 08/26/20 20:53 Scopolamine Transdermal Patch 72 Hr TD 1 each Q72H MARSHALL Administration Simple Syrup 15 ml 08/19/20 16:06 08/28/20 10:10 Simple Syrup 15 Ml FEEDTUBE 15 ml PRN PRN Administration Hypoglycemia Simple Syrup 30 ml 08/19/20 16:06 08/28/20 00:15 Simple Syrup 15 Ml FEEDTUBE 30 ml PRN PRN Administration Hypoglycemia Sodium Bicarbonate 325 mg 08/19/20 16:06 Sodium Bicarbonate 325 Mg Tab FEEDTUBE PRN PRN For Clogged Feeding Tube Sodium Chloride 10 ml 08/14/20 22:00 08/28/20 10:00 Sodium Chloride 0.9% 10 Ml Flush Syringe IV 10 ml BID MARSHALL Administration Sodium Chloride 10 ml 08/14/20 15:42 08/25/20 01:52 Sodium Chloride 0.9% 10 Ml Flush Syringe IV 10 ml PRN PRN Administration LINE FLUSH HEART Score - HEART Score Troponin: Troponin T 0.034 ng/mL (0.00-0.029) H 08/14/20 11:02
--- NOTE | 2020-08-28 17:55 | Progress Note ---
Assessment and Plan Assessment and plan: --Anemia; significant drop in H&H Current Visit: Yes Status: Acute Plan to address problem: Received 2 units PRBC, Hb 9.5 today No external evidence of bleeding Closely monitor H&H and transfuse additional PRBC as needed --dysphagia/failed swallow eval/for PEG placement Current Visit: Yes Status: Acute Plan to address problem: GI evaluated the patient Patient refused, PEG placement today GI recommended modified barium swallow Re evaluation by speech therapist Bedside swallow, diet as tolerated --Severe protein calorie malnutrition; Current Visit: Yes Status: Acute Plan to address problem: Nutrition supplements, Ensure plus Dietitian following, Tube feeding per protocol Dysphagia, patient needs PEG placement -- Septic shock/resolved Current Visit: Yes Status: Acute Plan to address problem: Monitor off Levophed, with underlying sepsis UTI and infected heel, continue antibiotics IV fluids, Blood cultures-no growth --Sepsis secondary to UTI (urinary tract infection) Current Visit: Yes Status: Acute Plan to address problem: Completed antibiotics --Chronic sacral wound Current Visit: Yes Status: Acute Plan to address problem: wound care, completed antibiotics --Leukocytosis/sepsis Current Visit: Yes Status: Acute Plan to address problem: WBC trending down Completed antibiotics --Hypernatremia; secondary to dehydration D5 W IV fluids, closely monitor electrolytes --DVT prophylaxis Current Visit: Yes Status: Acute Plan to address problem: Subcu heparin --Full code status Current Visit: Yes Status: Acute Plan to address problem: Patient is a full code. We will closely monitor the patient and adjust management as needed Plan of care reviewed with the patient and his nurse Follow repeat swallow evaluation, follow bedside swallow screen Diet as tolerated PT evaluation and treatment Possible discharge back to SNF in 1 to 2 days if stable and cleared by all the consultants 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 and knockdown worker andria eduardo 08/19/2020; multiple electrolyte abnormalities, hypomagnesemia, hypophosphatemia, hypokalemia, replenish per protocol Patient remains in septic shock, on Levophed, patient is critically ill NG tube placement, tube feeds per protocol 08/20/2020; remains critically ill, septic shock on Levophed, sepsis secondary to UTI on cefepime and Vanco Cultures negative to date, persistent electrolyte abnormalities hypokalemia, hypophosphatemia, hypomagnesemia We will closely monitor electrolytes and adjust as needed 08/21/2020; patient remains Levophed dependent, titrate and DC Receiving tube feeding, continues to have hypokalemia and hypophosphatemia receiving IV K-Phos 08/22/2020; monitor the patient off Levophed, continue Dobbhoff feeds, follow speech therapy evaluation and recommendation If no improvement PEG placement, correct electrolyte abnormalities 08/27/2020; scheduled for PEG today, GI consulted, patient n.p.o. status Significant drop in H&H, will transfuse 2 units of PRBC prior to procedure 08/28/2020; patient refused PEG placement and GI evaluated the patient Patient also removed Dobbhoff tube, reconsult speech therapist for swallow eval Diet as tolerated Plan of care reviewed with the patient and his nurse Disposition; placement when patient is medically stable History Interval history: GI has evaluated the patient for possible PEG placement As speech therapist has recommended since patient's had abnormal swallow eval Patient refused PEG placement Today patient removed his Dobbhoff We will reconsult speech therapist first swallow eval Patient states he feels better No new complaints Vital signs stable Hospitalist Physical - Constitutional Vitals: Temp Pulse Resp BP Pulse Ox 97.6 F 87 18 113/63 98 08/28/20 15:57 08/28/20 15:57 08/28/20 15:57 08/28/20 15:57 08/28/20 15:57 General appearance: Present: no acute distress, well-nourished - EENT Eyes: Present: PERRL, EOM intact - Neck Neck: Present: supple, normal ROM - Respiratory Respiratory effort: normal Respiratory: bilateral: diminished, negative: rales, rhonchi, wheezing - Cardiovascular Rhythm: regular Heart Sounds: Present: S1 & S2 - Extremities Extremities: no ischemia, No edema - Abdominal General gastrointestinal: soft, non-tender, non-distended, normal bowel sounds - Integumentary Integumentary: Present: clear, warm - Psychiatric Psychiatric: appropriate mood/affect, cooperative - Neurologic Neurologic: CNII-XII intact, moves all extremities HEART Score - HEART Score Troponin: Troponin T 0.034 ng/mL (0.00-0.029) H 08/14/20 11:02 Results - Labs CBC & Chem 7: 08/28/20 06:51 08/27/20 04:54 Labs: Laboratory Last Values WBC 7.7 K/mm3 (4.5-11.0) 08/27/20 04:54 RBC 2.31 M/mm3 (3.65-5.03) L 08/27/20 04:54 Hgb 9.8 gm/dl (11.8-15.2) L 08/28/20 06:51 Hct 28.2 % (35.5-45.6) L D 08/28/20 06:51 MCV 93 fl (84-94) 08/27/20 04:54 MCH 30 pg (28-32) 08/27/20 04:54 MCHC 33 % (32-34) 08/27/20 04:54 RDW 13.9 % (13.2-15.2) 08/27/20 04:54 Plt Count 310 K/mm3 (140-440) 08/27/20 04:54 Lymph % (Auto) 19.2 % (13.4-35.0) 08/27/20 04:54 [place] % (Auto) 7.7 % (0.0-7.3) H 08/27/20 04:54 Eos % (Auto) 1.7 % (0.0-4.3) 08/27/20 04:54 Baso % (Auto) 0.3 % (0.0-1.8) 08/27/20 04:54 Lymph # (Auto) 1.5 K/mm3 (1.2-5.4) 08/27/20 04:54 [place] # (Auto) 0.6 K/mm3 (0.0-0.8) 08/27/20 04:54 Eos # (Auto) 0.1 K/mm3 (0.0-0.4) 08/27/20 04:54 Baso # (Auto) 0.0 K/mm3 (0.0-0.1) 08/27/20 04:54 Add Manual Diff Complete 08/20/20 05:26 Total Counted 100 08/20/20 05:26 Seg Neutrophils % 71.1 % (40.0-70.0) H 08/27/20 04:54 Seg Neuts % (Manual) 78.0 % (40.0-70.0) H 08/20/20 05:26 Band Neutrophils % 5.0 % 08/15/20 14:22 Lymphocytes % (Manual) 11.0 % (13.4-35.0) L 08/20/20 05:26 Monocytes % (Manual) 6.0 % (0.0-7.3) 08/20/20 05:26 Eosinophils % (Manual) 5.0 % (0.0-4.3) H 08/20/20 05:26 Metamyelocytes % 1.0 % 08/15/20 14:22 Nucleated RBC % Not Reportable 08/20/20 05:26 Seg Neutrophils # 5.5 K/mm3 (1.8-7.7) 08/27/20 04:54 Seg Neutrophils # Man 6.7 K/mm3 (1.8-7.7) 08/20/20 05:26 Band Neutrophils # 0.0 K/mm3 08/20/20 05:26 Lymphocytes # (Manual) 0.9 K/mm3 (1.2-5.4) L 08/20/20 05:26 Abs React Lymphs (Man) 0.0 K/mm3 08/20/20 05:26 Monocytes # (Manual) 0.5 K/mm3 (0.0-0.8) 08/20/20 05:26 Eosinophils # (Manual) 0.4 K/mm3 (0.0-0.4) 08/20/20 05:26 Basophils # (Manual) 0.0 K/mm3 (0.0-0.1) 08/20/20 05:26 Metamyelocytes # 0.0 K/mm3 08/20/20 05:26 Myelocytes # 0.0 K/mm3 08/20/20 05:26 Promyelocytes # 0.0 K/mm3 08/20/20 05:26 Blast Cells # 0.0 K/mm3 08/20/20 05:26 WBC Morphology Not Reportable 08/20/20 05:26 Hypersegmented Neuts Not Reportable 08/20/20 05:26 Hyposegmented Neuts Not Reportable 08/20/20 05:26 Hypogranular Neuts Not Reportable 08/20/20 05:26 Smudge Cells Not Reportable 08/20/20 05:26 Toxic Granulation Not Reportable 08/20/20 05:26 Toxic Vacuolation Not Reportable 08/20/20 05:26 Dohle Bodies Not Reportable 08/20/20 05:26 Pelger-Huet Anomaly Not Reportable 08/20/20 05:26 Kassi Rods Not Reportable 08/20/20 05:26 Platelet Estimate Consistent w auto 08/20/20 05:26 Clumped Platelets Not Reportable 08/20/20 05:26 Plt Clumps, EDTA Not Reportable 08/20/20 05:26 Large Platelets Not Reportable 08/20/20 05:26 Giant Platelets Not Reportable 08/20/20 05:26 Platelet Satelliting Not Reportable 08/20/20 05:26 Plt Morphology Comment Not Reportable 08/20/20 05:26 RBC Morphology Not Reportable 08/20/20 05:26 Dimorphic RBCs Not Reportable 08/20/20 05:26 Polychromasia Not Reportable 08/20/20 05:26 Hypochromasia Not Reportable 08/20/20 05:26 Poikilocytosis Not Reportable 08/20/20 05:26 Anisocytosis Not Reportable 08/20/20 05:26 Microcytosis Not Reportable 08/20/20 05:26 Macrocytosis Not Reportable 08/20/20 05:26 Spherocytes Not Reportable 08/20/20 05:26 Pappenheimer Bodies Not Reportable 08/20/20 05:26 Sickle Cells Not Reportable 08/20/20 05:26 Target Cells Not Reportable 08/20/20 05:26 Tear Drop Cells Not Reportable 08/20/20 05:26 Ovalocytes Not Reportable 08/20/20 05:26 Helmet Cells Not Reportable 08/20/20 05:26 [place] Bodies Not Reportable 08/20/20 05:26 [place] Rings Not Reportable 08/20/20 05:26 Rhea Cells Not Reportable 08/20/20 05:26 Bite Cells Not Reportable 08/20/20 05:26 Crenated Cell Not Reportable 08/20/20 05:26 Elliptocytes Not Reportable 08/20/20 05:26 Acanthocytes (Spur) Not Reportable 08/20/20 05:26 Rouleaux Not Reportable 08/20/20 05:26 Hemoglobin C Crystals Not Reportable 08/20/20 05:26 Schistocytes Not Reportable 08/20/20 05:26 Malaria parasites Not Reportable 08/20/20 05:26 Richard Bodies Not Reportable 08/20/20 05:26 Hem Pathologist Commnt No 08/20/20 05:26 PT 15.4 Sec. (12.2-14.9) H 08/15/20 05:37 INR 1.24 (0.87-1.13) H 08/15/20 05:37 Sodium 138 mmol/L (137-145) D 08/27/20 04:54 Potassium 3.9 mmol/L (3.6-5.0) 08/27/20 04:54 Chloride 105.1 mmol/L (98-107) 08/27/20 04:54 Carbon Dioxide 27 mmol/L (22-30) 08/27/20 04:54 Anion Gap 10 mmol/L 08/27/20 04:54 BUN 8 mg/dL (9-20) L 08/27/20 04:54 Creatinine 0.5 mg/dL (0.8-1.3) L 08/27/20 04:54 Estimated GFR > 60 ml/min 08/27/20 04:54 BUN/Creatinine Ratio 16 % 08/27/20 04:54 Glucose 119 mg/dL (75-100) H 08/27/20 04:54 POC Glucose 92 mg/dL (70-105) 08/28/20 15:54 Lactic Acid 1.50 mmol/L (0.7-2.0) 08/14/20 18:37 Calcium 7.3 mg/dL (8.4-10.2) L 08/27/20 04:54 Phosphorus 3.20 mg/dL (2.5-4.5) 08/26/20 20:17 Magnesium 1.70 mg/dL (1.7-2.3) 08/27/20 04:54 Iron 35 ug/dL (49-181) L 08/27/20 02:40 TIBC 112 mcg/dL (250-450) L 08/27/20 02:40 Ferritin 627.6 ng/mL (30.0-300.0) H 08/27/20 02:40 Total Bilirubin 0.20 mg/dL (0.1-1.2) 08/24/20 07:09 Direct Bilirubin < 0.2 mg/dL (0-0.2) 08/16/20 05:20 Indirect Bilirubin 0.0 mg/dL 08/16/20 05:20 AST 10 units/L (5-40) 08/24/20 07:09 ALT 10 units/L (7-56) 08/24/20 07:09 Alkaline Phosphatase 53 units/L (35-129) 08/24/20 07:09 Total Creatine Kinase 177 units/L (55-170) H 08/15/20 14:22 Troponin T 0.034 ng/mL (0.00-0.029) H 08/14/20 11:02 Total Protein 5.8 g/dL (6.3-8.2) L 08/24/20 07:09 Albumin 1.8 g/dL (3.9-5) L 08/24/20 07:09 Albumin/Globulin Ratio 0.5 % 08/24/20 07:09 Triglycerides 370 mg/dL (2-149) H 08/14/20 11:02 Cholesterol 243 mg/dL (50-199) H 08/14/20 11:02 LDL Cholesterol Direct 130 mg/dL (50-130) 08/14/20 11:02 HDL Cholesterol 34 mg/dL (40-59) L 08/14/20 11:02 Cholesterol/HDL Ratio 7.14 % 08/14/20 11:02 Urine Color Yellow (Yellow) 08/14/20 13:25 Urine Turbidity Turbid (Clear) 08/14/20 13:25 Urine pH 5.0 (5.0-7.0) 08/14/20 13:25 Ur Specific Wyatt 1.020 (1.003-1.030) 08/14/20 13:25 Urine Protein 100 mg/dl mg/dL (Negative) 08/14/20 13:25 Urine Glucose (UA) Neg mg/dL (Negative) 08/14/20 13:25 Urine Ketones Tr mg/dL (Negative) 08/14/20 13:25 Urine Blood Mod (Negative) 08/14/20 13:25 Urine Nitrite Neg (Negative) 08/14/20 13:25 Urine Bilirubin Neg (Negative) 08/14/20 13:25 Urine Urobilinogen 2.0 mg/dL (<2.0) 08/14/20 13:25 Ur Leukocyte Esterase Mod (Negative) 08/14/20 13:25 Urine WBC (Auto) > 182.0 /HPF (0.0-6.0) H 08/14/20 13:25 Urine RBC (Auto) 56.0 /HPF (0.0-6.0) 08/14/20 13:25 U Epithel Cells (Auto) 2.0 /HPF (0-13.0) 08/14/20 13:25 Urine Bacteria (Auto) 3+ /HPF (Negative) 08/14/20 13:25 Urine WBC Clumps 3+ /HPF 08/14/20 13:25 Urine Mucus 2+ /HPF 08/14/20 13:25 Urine Creatinine 35.9 mg/dL (0.1-20.0) H 08/15/20 22:12 Urine Creatinine 36.0 mg/dL (0.1-20.0) H 08/15/20 22:12 Protein/Creatinin Ratio 3.20 08/15/20 22:12 Urine Sodium 77 mmol/L 08/15/20 22:12 Urine Total Protein 115 mg/dL (5-11.8) H 08/15/20 22:12 Vancomycin Trough 8.9 ug/mL (5.0-20.0) 08/16/20 16:48 Blood Type O POSITIVE 08/27/20 10:42 Antibody Screen Negative 08/27/20 10:42 Crossmatch See Detail 08/27/20 10:42 Microbiology: Microbiology 08/27/20 Unknown Stool Stool Occult Blood (ELVER) - Final Rivas/IV: Voiding Method Indwelling Catheter IV Catheter Type [Left Triple Lumen Cath Internal Jugular] IV Catheter Type [Left INT / Saline Lock Antecubital] Active Medications - Current Medications Current Medications: Generic Name Dose Route Start Last Admin Trade Name Freq PRN Reason Stop Dose Admin Lipase/Protease/Amylase 1 each 08/19/20 16:06 Lipase 10,500/Protease 25,000/Amylase 43,750 (Units) Dr Casper FEEDTUBE PRN PRN For Clogged Feeding Tube Carbamazepine 200 mg 08/15/20 14:00 08/28/20 13:57 Carbamazepine 200 Mg Tab PO Not Given TID MARSHALL Folic Acid 1 mg 08/15/20 10:00 08/28/20 10:00 Folic Acid 1 Mg Tab PO 1 mg QDAY MARSHALL Administration Dextrose 1,000 mls @ 120 mls/hr 08/26/20 19:00 08/28/20 13:06 D5w IV 120 mls/hr DIRECT MARSHALL Administration Magnesium Hydroxide 30 ml 08/14/20 15:42 Magnesium Hydroxide (Mom) Oral Liqd Udc PO Q4H PRN Constipation Midodrine 5 mg 08/21/20 17:00 08/28/20 15:45 Midodrine 2.5 Mg Tab PO 5 mg TID@0800,1200,1600 MARSHALL Administration Morphine Sulfate 2 mg 08/15/20 17:57 08/23/20 05:26 Morphine 2 Mg/1 Ml Inj IV 2 mg Q6H PRN Administration Pain, Moderate (4-6) Ondansetron HCl 4 mg 08/14/20 15:42 08/19/20 06:04 Ondansetron 4 Mg/2 Ml Inj IV 4 mg Q8H PRN Administration Nausea And Vomiting Potassium Chloride 40 meq 08/23/20 18:00 08/28/20 09:59 Potassium Chloride 20 Meq Packet FEEDTUBE 40 meq QDAY MARSHALL Administration Primidone 250 mg 08/15/20 14:00 08/28/20 13:57 Primidone 250 Mg Tab PO Not Given TID MARSHALL Scopolamine 1 each 08/26/20 20:00 08/26/20 20:53 Scopolamine Transdermal Patch 72 Hr TD 1 each Q72H MARSHALL Administration Simple Syrup 15 ml 08/19/20 16:06 08/28/20 10:10 Simple Syrup 15 Ml FEEDTUBE 15 ml PRN PRN Administration Hypoglycemia Simple Syrup 30 ml 08/19/20 16:06 08/28/20 00:15 Simple Syrup 15 Ml FEEDTUBE 30 ml PRN PRN Administration Hypoglycemia Sodium Bicarbonate 325 mg 08/19/20 16:06 Sodium Bicarbonate 325 Mg Tab FEEDTUBE PRN PRN For Clogged Feeding Tube Sodium Chloride 10 ml 08/14/20 22:00 08/28/20 10:00 Sodium Chloride 0.9% 10 Ml Flush Syringe IV 10 ml BID MARSHALL Administration Sodium Chloride 10 ml 08/14/20 15:42 08/25/20 01:52 Sodium Chloride 0.9% 10 Ml Flush Syringe IV 10 ml PRN PRN Administration LINE FLUSH Nutrition/Malnutrition Assess - Dietary Evaluation Nutrition/Malnutrition Findings: Nutrition Notes Start: 08/15/20 14:08 Freq: Status: Active Protocol: Document 08/28/20 09:25 EN (Rec: 08/28/20 09:28 EN [id number]) Co-Sign 08/28/20 09:25 MK Nutrition Notes Need for Assessment generated from: MD Order Initial or Follow up Brief Note Current Diagnosis Sepsis Other Pertinent Diagnosis AMS, UTI, hypotension, wound infection, spondylosis Current Diet NPO Subjective/Other Information MD order for write and manage TF. Pt was recommended for PEG placement, but pt refusing and procedure cancelled. TF order entered to restart Dobbhoff feeding. Pt waiting for Barium Swallow and also has edema Nutrition Intervention Change Diet Order: Restart TF Nutrition Support: Jevity 1.2 at 70 mL/hr Flush 100ml q4h Kcal 2,016 Protein (gm) 93 Fluid (mL) 1,355 Add Supplement/Snack (indicate name/kcal Luciano BID /protein ) Provides kCal: 190 Provides Protein (gm) 5 Anticipated Discharge Needs: Unable to determine at this time Follow-Up By: 09/01/20 Additional Comments F/u for TF restart and POC
[2020-08-29] MEDS: DEXTROSE 5% IN WATER 1,000 ML IV SCH ×3 (01:33→18:02)
[2020-08-29] MEDS ORDERED: DEXTROSE/DEXTRIN/MALTOSE 24 GM CARB PER 31 GM TUBE PO NR (07:28)
--- NOTE | 2020-08-29 07:37 | Progress Note ---
Assessment and Plan Assessment and plan: --Hypoglycemia; due to poor oral intake Current Visit: Yes Status: Acute Plan to address problem: D5W, encourage oral nutrition, D50 as needed Consider oral glucose gel if no improvement --Anemia; significant drop in H&H Current Visit: Yes Status: Acute Plan to address problem: Received 2 units PRBC, Hb 9.5 today No external evidence of bleeding Closely monitor H&H and transfuse additional PRBC as needed --dysphagia/modified barium swallow normal study Current Visit: Yes Status: Acute Plan to address problem: Speech therapist recommend thin liquid pure diet Advance as tolerated Initially speech therapist recommended PEG Dr. Haile she GI evaluated the patient Patient refused the procedure , reeval by speech Trial pured diet with thin liquids today --Severe protein calorie malnutrition; hypoalbuminemia Current Visit: Yes Status: Acute Plan to address problem: Nutrition supplements, Ensure plus Dietitian following, Tube feeding per protocol Dysphagia, patient needs PEG placement -- Septic shock/resolved Current Visit: Yes Status: Acute Plan to address problem: Monitor off Levophed, with underlying sepsis UTI and infected heel, continue antibiotics IV fluids, Blood cultures-no growth --Sepsis secondary to UTI (urinary tract infection) Current Visit: Yes Status: Acute Plan to address problem: Completed antibiotics --Chronic sacral wound Current Visit: Yes Status: Acute Plan to address problem: wound care, completed antibiotics --Leukocytosis/sepsis Current Visit: Yes Status: Acute Plan to address problem: WBC trending down Completed antibiotics --Hypernatremia; secondary to dehydration D5 W IV fluids, closely monitor electrolytes --DVT prophylaxis Current Visit: Yes Status: Acute Plan to address problem: Subcu heparin --Full code status Current Visit: Yes Status: Acute Plan to address problem: Patient is a full code. We will closely monitor the patient and adjust management as needed Plan of care reviewed with the patient and his nurse Follow repeat swallow evaluation, follow bedside swallow screen Diet as tolerated PT evaluation and treatment Possible discharge back to SNF in 1 to 2 days if stable and cleared by all the consultants 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 and electronics parts sales representative following 08/19/2020; multiple electrolyte abnormalities, hypomagnesemia, hypophosphatemia, hypokalemia, replenish per protocol Patient remains in septic shock, on Levophed, patient is critically ill NG tube placement, tube feeds per protocol 08/20/2020; remains critically ill, septic shock on Levophed, sepsis secondary to UTI on cefepime and Vanco Cultures negative to date, persistent electrolyte abnormalities hypokalemia, hypophosphatemia, hypomagnesemia We will closely monitor electrolytes and adjust as needed 08/21/2020; patient remains Levophed dependent, titrate and DC Receiving tube feeding, continues to have hypokalemia and hypophosphatemia receiving IV K-Phos 08/22/2020; monitor the patient off Levophed, continue Dobbhoff feeds, follow speech therapy evaluation and recommendation If no improvement PEG placement, correct electrolyte abnormalities 08/27/2020; scheduled for PEG today, GI consulted, patient n.p.o. status Significant drop in H&H, will transfuse 2 units of PRBC prior to procedure 08/28/2020; patient refused PEG placement and GI evaluated the patient Patient also removed Dobbhoff tube, reconsult speech therapist for swallow eval Diet as tolerated 08/29/2020; speech therapist recommended pured diet with thin liquids Patient is also having D5W IV fluids, will encourage increased oral intake Plan of care reviewed with the patient and his nurse Disposition; placement when patient is medically stable History Interval history: I have seen and examined the patient at the bedside Patient's chart and medications reviewed Patient is able to tolerate pured diet Modified barium swallow study is normal Speech therapy recommended pure with thin liquids Patient has no new complaints Vital signs noted Hospitalist Physical - Constitutional Vitals: Temp Pulse Resp BP Pulse Ox 98.5 F 87 18 113/64 100 08/29/20 04:11 08/29/20 04:11 08/29/20 04:11 08/29/20 04:11 08/29/20 04:11 General appearance: Present: no acute distress, well-nourished, obese - EENT Eyes: Present: PERRL, EOM intact - Neck Neck: Present: supple, normal ROM - Respiratory Respiratory effort: normal Respiratory: bilateral: diminished, negative: rales, rhonchi, wheezing - Cardiovascular Rhythm: regular Heart Sounds: Present: S1 & S2 - Extremities Extremities: no ischemia, abnormal (Chronic wound) - Abdominal General gastrointestinal: soft, non-tender, non-distended, normal bowel sounds - Integumentary Integumentary: Present: clear, warm - Psychiatric Psychiatric: appropriate mood/affect, cooperative - Neurologic Neurologic: CNII-XII intact, moves all extremities HEART Score - HEART Score Troponin: Troponin T 0.034 ng/mL (0.00-0.029) H 08/14/20 11:02 Results - Labs CBC & Chem 7: 08/28/20 06:51 08/27/20 04:54 Labs: Laboratory Last Values WBC 7.7 K/mm3 (4.5-11.0) 08/27/20 04:54 RBC 2.31 M/mm3 (3.65-5.03) L 08/27/20 04:54 Hgb 9.8 gm/dl (11.8-15.2) L 08/28/20 06:51 Hct 28.2 % (35.5-45.6) L D 08/28/20 06:51 MCV 93 fl (84-94) 08/27/20 04:54 MCH 30 pg (28-32) 08/27/20 04:54 MCHC 33 % (32-34) 08/27/20 04:54 RDW 13.9 % (13.2-15.2) 08/27/20 04:54 Plt Count 310 K/mm3 (140-440) 08/27/20 04:54 Lymph % (Auto) 19.2 % (13.4-35.0) 08/27/20 04:54 [place] % (Auto) 7.7 % (0.0-7.3) H 08/27/20 04:54 Eos % (Auto) 1.7 % (0.0-4.3) 08/27/20 04:54 Baso % (Auto) 0.3 % (0.0-1.8) 08/27/20 04:54 Lymph # (Auto) 1.5 K/mm3 (1.2-5.4) 08/27/20 04:54 [place] # (Auto) 0.6 K/mm3 (0.0-0.8) 08/27/20 04:54 Eos # (Auto) 0.1 K/mm3 (0.0-0.4) 08/27/20 04:54 Baso # (Auto) 0.0 K/mm3 (0.0-0.1) 08/27/20 04:54 Add Manual Diff Complete 08/20/20 05:26 Total Counted 100 08/20/20 05:26 Seg Neutrophils % 71.1 % (40.0-70.0) H 08/27/20 04:54 Seg Neuts % (Manual) 78.0 % (40.0-70.0) H 08/20/20 05:26 Band Neutrophils % 5.0 % 08/15/20 14:22 Lymphocytes % (Manual) 11.0 % (13.4-35.0) L 08/20/20 05:26 Monocytes % (Manual) 6.0 % (0.0-7.3) 08/20/20 05:26 Eosinophils % (Manual) 5.0 % (0.0-4.3) H 08/20/20 05:26 Metamyelocytes % 1.0 % 08/15/20 14:22 Nucleated RBC % Not Reportable 08/20/20 05:26 Seg Neutrophils # 5.5 K/mm3 (1.8-7.7) 08/27/20 04:54 Seg Neutrophils # Man 6.7 K/mm3 (1.8-7.7) 08/20/20 05:26 Band Neutrophils # 0.0 K/mm3 08/20/20 05:26 Lymphocytes # (Manual) 0.9 K/mm3 (1.2-5.4) L 08/20/20 05:26 Abs React Lymphs (Man) 0.0 K/mm3 08/20/20 05:26 Monocytes # (Manual) 0.5 K/mm3 (0.0-0.8) 08/20/20 05:26 Eosinophils # (Manual) 0.4 K/mm3 (0.0-0.4) 08/20/20 05:26 Basophils # (Manual) 0.0 K/mm3 (0.0-0.1) 08/20/20 05:26 Metamyelocytes # 0.0 K/mm3 08/20/20 05:26 Myelocytes # 0.0 K/mm3 08/20/20 05:26 Promyelocytes # 0.0 K/mm3 08/20/20 05:26 Blast Cells # 0.0 K/mm3 08/20/20 05:26 WBC Morphology Not Reportable 08/20/20 05:26 Hypersegmented Neuts Not Reportable 08/20/20 05:26 Hyposegmented Neuts Not Reportable 08/20/20 05:26 Hypogranular Neuts Not Reportable 08/20/20 05:26 Smudge Cells Not Reportable 08/20/20 05:26 Toxic Granulation Not Reportable 08/20/20 05:26 Toxic Vacuolation Not Reportable 08/20/20 05:26 Dohle Bodies Not Reportable 08/20/20 05:26 Pelger-Huet Anomaly Not Reportable 08/20/20 05:26 Kassi Rods Not Reportable 08/20/20 05:26 Platelet Estimate Consistent w auto 08/20/20 05:26 Clumped Platelets Not Reportable 08/20/20 05:26 Plt Clumps, EDTA Not Reportable 08/20/20 05:26 Large Platelets Not Reportable 08/20/20 05:26 Giant Platelets Not Reportable 08/20/20 05:26 Platelet Satelliting Not Reportable 08/20/20 05:26 Plt Morphology Comment Not Reportable 08/20/20 05:26 RBC Morphology Not Reportable 08/20/20 05:26 Dimorphic RBCs Not Reportable 08/20/20 05:26 Polychromasia Not Reportable 08/20/20 05:26 Hypochromasia Not Reportable 08/20/20 05:26 Poikilocytosis Not Reportable 08/20/20 05:26 Anisocytosis Not Reportable 08/20/20 05:26 Microcytosis Not Reportable 08/20/20 05:26 Macrocytosis Not Reportable 08/20/20 05:26 Spherocytes Not Reportable 08/20/20 05:26 Pappenheimer Bodies Not Reportable 08/20/20 05:26 Sickle Cells Not Reportable 08/20/20 05:26 Target Cells Not Reportable 08/20/20 05:26 Tear Drop Cells Not Reportable 08/20/20 05:26 Ovalocytes Not Reportable 08/20/20 05:26 Helmet Cells Not Reportable 08/20/20 05:26 [place] Bodies Not Reportable 08/20/20 05:26 Hernando Rings Not Reportable 08/20/20 05:26 [place] Siding Cells Not Reportable 08/20/20 05:26 Bite Cells Not Reportable 08/20/20 05:26 Crenated Cell Not Reportable 08/20/20 05:26 Elliptocytes Not Reportable 08/20/20 05:26 Acanthocytes (Spur) Not Reportable 08/20/20 05:26 Rouleaux Not Reportable 08/20/20 05:26 Hemoglobin C Crystals Not Reportable 08/20/20 05:26 Schistocytes Not Reportable 08/20/20 05:26 Malaria parasites Not Reportable 08/20/20 05:26 Richard Bodies Not Reportable 08/20/20 05:26 Hem Pathologist Commnt No 08/20/20 05:26 PT 15.4 Sec. (12.2-14.9) H 08/15/20 05:37 INR 1.24 (0.87-1.13) H 08/15/20 05:37 Sodium 138 mmol/L (137-145) D 08/27/20 04:54 Potassium 3.9 mmol/L (3.6-5.0) 08/27/20 04:54 Chloride 105.1 mmol/L (98-107) 08/27/20 04:54 Carbon Dioxide 27 mmol/L (22-30) 08/27/20 04:54 Anion Gap 10 mmol/L 08/27/20 04:54 BUN 8 mg/dL (9-20) L 08/27/20 04:54 Creatinine 0.5 mg/dL (0.8-1.3) L 08/27/20 04:54 Estimated GFR > 60 ml/min 08/27/20 04:54 BUN/Creatinine Ratio 16 % 08/27/20 04:54 Glucose 119 mg/dL (75-100) H 08/27/20 04:54 POC Glucose 68 mg/dL (70-105) L 08/29/20 00:37 Lactic Acid 1.50 mmol/L (0.7-2.0) 08/14/20 18:37 Calcium 7.3 mg/dL (8.4-10.2) L 08/27/20 04:54 Phosphorus 3.20 mg/dL (2.5-4.5) 08/26/20 20:17 Magnesium 1.70 mg/dL (1.7-2.3) 08/27/20 04:54 Iron 35 ug/dL (49-181) L 08/27/20 02:40 TIBC 112 mcg/dL (250-450) L 08/27/20 02:40 Ferritin 627.6 ng/mL (30.0-300.0) H 08/27/20 02:40 Total Bilirubin 0.20 mg/dL (0.1-1.2) 08/24/20 07:09 Direct Bilirubin < 0.2 mg/dL (0-0.2) 08/16/20 05:20 Indirect Bilirubin 0.0 mg/dL 08/16/20 05:20 AST 10 units/L (5-40) 08/24/20 07:09 ALT 10 units/L (7-56) 08/24/20 07:09 Alkaline Phosphatase 53 units/L (35-129) 08/24/20 07:09 Total Creatine Kinase 177 units/L (55-170) H 08/15/20 14:22 Troponin T 0.034 ng/mL (0.00-0.029) H 08/14/20 11:02 Total Protein 5.8 g/dL (6.3-8.2) L 08/24/20 07:09 Albumin 1.8 g/dL (3.9-5) L 08/24/20 07:09 Albumin/Globulin Ratio 0.5 % 08/24/20 07:09 Triglycerides 370 mg/dL (2-149) H 08/14/20 11:02 Cholesterol 243 mg/dL (50-199) H 08/14/20 11:02 LDL Cholesterol Direct 130 mg/dL (50-130) 08/14/20 11:02 HDL Cholesterol 34 mg/dL (40-59) L 08/14/20 11:02 Cholesterol/HDL Ratio 7.14 % 08/14/20 11:02 Urine Color Yellow (Yellow) 08/14/20 13:25 Urine Turbidity Turbid (Clear) 08/14/20 13:25 Urine pH 5.0 (5.0-7.0) 08/14/20 13:25 Ur Specific [place] 1.020 (1.003-1.030) 08/14/20 13:25 Urine Protein 100 mg/dl mg/dL (Negative) 08/14/20 13:25 Urine Glucose (UA) Neg mg/dL (Negative) 08/14/20 13:25 Urine Ketones Tr mg/dL (Negative) 08/14/20 13:25 Urine Blood Mod (Negative) 08/14/20 13:25 Urine Nitrite Neg (Negative) 08/14/20 13:25 Urine Bilirubin Neg (Negative) 08/14/20 13:25 Urine Urobilinogen 2.0 mg/dL (<2.0) 08/14/20 13:25 Ur Leukocyte Esterase Mod (Negative) 08/14/20 13:25 Urine WBC (Auto) > 182.0 /HPF (0.0-6.0) H 08/14/20 13:25 Urine RBC (Auto) 56.0 /HPF (0.0-6.0) 08/14/20 13:25 U Epithel Cells (Auto) 2.0 /HPF (0-13.0) 08/14/20 13:25 Urine Bacteria (Auto) 3+ /HPF (Negative) 08/14/20 13:25 Urine WBC Clumps 3+ /HPF 08/14/20 13:25 Urine Mucus 2+ /HPF 08/14/20 13:25 Urine Creatinine 35.9 mg/dL (0.1-20.0) H 08/15/20 22:12 Urine Creatinine 36.0 mg/dL (0.1-20.0) H 08/15/20 22:12 Protein/Creatinin Ratio 3.20 08/15/20 22:12 Urine Sodium 77 mmol/L 08/15/20 22:12 Urine Total Protein 115 mg/dL (5-11.8) H 08/15/20 22:12 Vancomycin Trough 8.9 ug/mL (5.0-20.0) 08/16/20 16:48 Blood Type O POSITIVE 08/27/20 10:42 Antibody Screen Negative 08/27/20 10:42 Crossmatch See Detail 08/27/20 10:42 Microbiology: Microbiology 08/27/20 Unknown Stool Stool Occult Blood (ELVER) - Final Rivas/IV: Voiding Method Condom Catheter IV Catheter Type [Left Triple Lumen Cath Internal Jugular] IV Catheter Type [Left INT / Saline Lock Antecubital] Active Medications - Current Medications Current Medications: Generic Name Dose Route Start Last Admin Trade Name Freq PRN Reason Stop Dose Admin Lipase/Protease/Amylase 1 each 08/19/20 16:06 Lipase 10,500/Protease 25,000/Amylase 43,750 (Units) Dr Casper FEEDTUBE PRN PRN For Clogged Feeding Tube Carbamazepine 200 mg 08/15/20 14:00 08/28/20 22:52 Carbamazepine 200 Mg Tab PO 200 mg TID MARSHALL Administration Folic Acid 1 mg 08/15/20 10:00 08/28/20 10:00 Folic Acid 1 Mg Tab PO 1 mg QDAY MARSHALL Administration Dextrose 1,000 mls @ 120 mls/hr 08/26/20 19:00 08/29/20 01:33 D5w IV 120 mls/hr DIRECT MARSHALL Administration Magnesium Hydroxide 30 ml 08/14/20 15:42 Magnesium Hydroxide (Mom) Oral Liqd Udc PO Q4H PRN Constipation Midodrine 5 mg 08/21/20 17:00 08/28/20 15:45 Midodrine 2.5 Mg Tab PO 5 mg TID@0800,1200,1600 MARSHALL Administration Morphine Sulfate 2 mg 08/15/20 17:57 08/23/20 05:26 Morphine 2 Mg/1 Ml Inj IV 2 mg Q6H PRN Administration Pain, Moderate (4-6) Ondansetron HCl 4 mg 08/14/20 15:42 08/19/20 06:04 Ondansetron 4 Mg/2 Ml Inj IV 4 mg Q8H PRN Administration Nausea And Vomiting Potassium Chloride 40 meq 08/23/20 18:00 08/28/20 09:59 Potassium Chloride 20 Meq Packet FEEDTUBE 40 meq QDAY MARSHALL Administration Primidone 250 mg 08/15/20 14:00 08/28/20 22:52 Primidone 250 Mg Tab PO 250 mg TID MARSHALL Administration Scopolamine 1 each 08/26/20 20:00 08/26/20 20:53 Scopolamine Transdermal Patch 72 Hr TD 1 each Q72H MARSHALL Administration Simple Syrup 15 ml 08/19/20 16:06 08/28/20 10:10 Simple Syrup 15 Ml FEEDTUBE 15 ml PRN PRN Administration Hypoglycemia Simple Syrup 30 ml 08/19/20 16:06 08/28/20 00:15 Simple Syrup 15 Ml FEEDTUBE 30 ml PRN PRN Administration Hypoglycemia Sodium Bicarbonate 325 mg 08/19/20 16:06 Sodium Bicarbonate 325 Mg Tab FEEDTUBE PRN PRN For Clogged Feeding Tube Sodium Chloride 10 ml 08/14/20 22:00 08/28/20 22:52 Sodium Chloride 0.9% 10 Ml Flush Syringe IV 10 ml BID MARSHALL Administration Sodium Chloride 10 ml 08/14/20 15:42 08/25/20 01:52 Sodium Chloride 0.9% 10 Ml Flush Syringe IV 10 ml PRN PRN Administration LINE FLUSH Nutrition/Malnutrition Assess - Dietary Evaluation Nutrition/Malnutrition Findings: Nutrition Notes Start: 08/15/20 14:08 Freq: Status: Active Protocol: Document 08/28/20 09:25 EN (Rec: 08/28/20 09:28 EN [id number]) Co-Sign 08/28/20 09:25 MK Nutrition Notes Need for Assessment generated from: MD Order Initial or Follow up Brief Note Current Diagnosis Sepsis Other Pertinent Diagnosis AMS, UTI, hypotension, wound infection, spondylosis Current Diet NPO Subjective/Other Information MD order for write and manage TF. Pt was recommended for PEG placement, but pt refusing and procedure cancelled. TF order entered to restart Dobbhoff feeding. Pt waiting for Barium Swallow and also has edema Nutrition Intervention Change Diet Order: Restart TF Nutrition Support: Jevity 1.2 at 70 mL/hr Flush 100ml q4h Kcal 2,016 Protein (gm) 93 Fluid (mL) 1,355 Add Supplement/Snack (indicate name/kcal Luciano BID /protein ) Provides kCal: 190 Provides Protein (gm) 5 Anticipated Discharge Needs: Unable to determine at this time Follow-Up By: 09/01/20 Additional Comments F/u for TF restart and POC
[2020-08-29] MEDS: carBAMazepine 200 MG TAB PO SCH ×3 (09:49→21:32)
[2020-08-29] MEDS: PRIMIDONE 250 MG TAB PO SCH ×3 (09:50→21:33)
[2020-08-29] MEDS: FOLIC ACID 1 MG TAB PO SCH (09:50)
[2020-08-29] MEDS: POTASSIUM CHLORIDE 20 MEQ PACKET FEEDTUBE SCH (09:50)
[2020-08-29] MEDS: MIDODRINE 2.5 MG TAB PO SCH ×3 (09:52→15:46)
[2020-08-29] MEDS: SCOPOLAMINE TRANSDERMAL PATCH 72 HR TD SCH (21:34)
[2020-08-30] MEDS: DEXTROSE 5% IN WATER 1,000 ML IV SCH ×3 (02:41→18:00)
--- NOTE | 2020-08-30 09:56 | Progress Note ---
Assessment and Plan Assessment and plan: --Hypoglycemia; due to poor oral intake Current Visit: Yes Status: Acute Plan to address problem: D5W, encourage oral nutrition, D50 as needed Consider oral glucose gel if no improvement --No dysphagia/modified barium swallow normal study Current Visit: Yes Status: Acute Plan to address problem: Patient request regular diet Modified barium swallow normal study Patient is able to take medications by mouth Ordered regular diet as tolerated Nutrition supplements --Anemia; significant drop in H&H Current Visit: Yes Status: Acute Plan to address problem: Received 2 units PRBC, Hb 9.5 today No external evidence of bleeding Closely monitor H&H and transfuse additional PRBC as needed --Severe protein calorie malnutrition; hypoalbuminemia Current Visit: Yes Status: Acute Plan to address problem: Nutrition supplements, Ensure plus Dietitian following, Tube feeding per protocol Dysphagia, patient needs PEG placement -- Septic shock/resolved Current Visit: Yes Status: Acute Plan to address problem: Monitor off Levophed, with underlying sepsis UTI and infected heel, continue antibiotics IV fluids, Blood cultures-no growth --Sepsis secondary to UTI (urinary tract infection) Current Visit: Yes Status: Acute Plan to address problem: Completed antibiotics --Chronic sacral wound Current Visit: Yes Status: Acute Plan to address problem: wound care, completed antibiotics --Leukocytosis/sepsis Current Visit: Yes Status: Acute Plan to address problem: WBC trending down Completed antibiotics --Hypernatremia; secondary to dehydration D5 W IV fluids, closely monitor electrolytes --DVT prophylaxis Current Visit: Yes Status: Acute Plan to address problem: Subcu heparin --Full code status Current Visit: Yes Status: Acute Plan to address problem: Patient is a full code. We will closely monitor the patient and adjust management as needed Plan of care reviewed with the patient and his nurse Follow repeat swallow evaluation, follow bedside swallow screen Diet as tolerated PT evaluation and treatment Possible discharge back to SNF in 1 to 2 days if stable and cleared by all the consultants 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 and forestry foreman following 08/19/2020; multiple electrolyte abnormalities, hypomagnesemia, hypophosphatemia, hypokalemia, replenish per protocol Patient remains in septic shock, on Levophed, patient is critically ill NG tube placement, tube feeds per protocol 08/20/2020; remains critically ill, septic shock on Levophed, sepsis secondary to UTI on cefepime and Vanco Cultures negative to date, persistent electrolyte abnormalities hypokalemia, hypophosphatemia, hypomagnesemia We will closely monitor electrolytes and adjust as needed 08/21/2020; patient remains Levophed dependent, titrate and DC Receiving tube feeding, continues to have hypokalemia and hypophosphatemia receiving IV K-Phos 08/22/2020; monitor the patient off Levophed, continue Dobbhoff feeds, follow speech therapy evaluation and recommendation If no improvement PEG placement, correct electrolyte abnormalities 08/27/2020; scheduled for PEG today, GI consulted, patient n.p.o. status Significant drop in H&H, will transfuse 2 units of PRBC prior to procedure 08/28/2020; patient refused PEG placement and GI evaluated the patient Patient also removed Dobbhoff tube, reconsult speech therapist for swallow eval Diet as tolerated 08/29/2020; speech therapist recommended pured diet with thin liquids Patient is also having D5W IV fluids, will encourage increased oral intake 08/30/2020; patient does not like pured diet, requests regular diet which was ordered today for lunch We will closely monitor, adjust the management as needed, repeat Covid test negative Possible discharge back to SNF in 1 to 2 days if stable Plan of care reviewed with the patient and his nurse Disposition; placement when patient is medically stable History Interval history: I have seen and examined the patient at the bedside Patient's chart and medications reviewed Very poor oral intake, patient does not like pured diet Request regular diet Modified barium swallow study normal Patient tolerating oral medications Vital signs noted Hospitalist Physical - Constitutional Vitals: Temp Pulse Resp BP Pulse Ox 98.6 F 86 18 108/60 97 08/30/20 09:05 08/30/20 08:52 08/30/20 08:52 08/30/20 08:52 08/30/20 08:52 General appearance: Present: no acute distress, well-nourished, obese - EENT Eyes: Present: PERRL, EOM intact - Neck Neck: Present: supple, normal ROM - Respiratory Respiratory effort: normal Respiratory: bilateral: diminished, negative: rales, rhonchi, wheezing - Cardiovascular Rhythm: regular Heart Sounds: Present: S1 & S2 - Extremities Extremities: no ischemia, No edema - Abdominal General gastrointestinal: soft, non-tender, non-distended, normal bowel sounds - Integumentary Integumentary: Present: clear, warm - Psychiatric Psychiatric: appropriate mood/affect, cooperative - Neurologic Neurologic: moves all extremities HEART Score - HEART Score Troponin: Troponin T 0.034 ng/mL (0.00-0.029) H 08/14/20 11:02 Results - Labs CBC & Chem 7: 08/28/20 06:51 08/27/20 04:54 Labs: Laboratory Last Values WBC 7.7 K/mm3 (4.5-11.0) 08/27/20 04:54 RBC 2.31 M/mm3 (3.65-5.03) L 08/27/20 04:54 Hgb 9.8 gm/dl (11.8-15.2) L 08/28/20 06:51 Hct 28.2 % (35.5-45.6) L D 08/28/20 06:51 MCV 93 fl (84-94) 08/27/20 04:54 MCH 30 pg (28-32) 08/27/20 04:54 MCHC 33 % (32-34) 08/27/20 04:54 RDW 13.9 % (13.2-15.2) 08/27/20 04:54 Plt Count 310 K/mm3 (140-440) 08/27/20 04:54 Lymph % (Auto) 19.2 % (13.4-35.0) 08/27/20 04:54 [place] % (Auto) 7.7 % (0.0-7.3) H 08/27/20 04:54 Eos % (Auto) 1.7 % (0.0-4.3) 08/27/20 04:54 Baso % (Auto) 0.3 % (0.0-1.8) 08/27/20 04:54 Lymph # (Auto) 1.5 K/mm3 (1.2-5.4) 08/27/20 04:54 [place] # (Auto) 0.6 K/mm3 (0.0-0.8) 08/27/20 04:54 Eos # (Auto) 0.1 K/mm3 (0.0-0.4) 08/27/20 04:54 Baso # (Auto) 0.0 K/mm3 (0.0-0.1) 08/27/20 04:54 Add Manual Diff Complete 08/20/20 05:26 Total Counted 100 08/20/20 05:26 Seg Neutrophils % 71.1 % (40.0-70.0) H 08/27/20 04:54 Seg Neuts % (Manual) 78.0 % (40.0-70.0) H 08/20/20 05:26 Band Neutrophils % 5.0 % 08/15/20 14:22 Lymphocytes % (Manual) 11.0 % (13.4-35.0) L 08/20/20 05:26 Monocytes % (Manual) 6.0 % (0.0-7.3) 08/20/20 05:26 Eosinophils % (Manual) 5.0 % (0.0-4.3) H 08/20/20 05:26 Metamyelocytes % 1.0 % 08/15/20 14:22 Nucleated RBC % Not Reportable 08/20/20 05:26 Seg Neutrophils # 5.5 K/mm3 (1.8-7.7) 08/27/20 04:54 Seg Neutrophils # Man 6.7 K/mm3 (1.8-7.7) 08/20/20 05:26 Band Neutrophils # 0.0 K/mm3 08/20/20 05:26 Lymphocytes # (Manual) 0.9 K/mm3 (1.2-5.4) L 08/20/20 05:26 Abs React Lymphs (Man) 0.0 K/mm3 08/20/20 05:26 Monocytes # (Manual) 0.5 K/mm3 (0.0-0.8) 08/20/20 05:26 Eosinophils # (Manual) 0.4 K/mm3 (0.0-0.4) 08/20/20 05:26 Basophils # (Manual) 0.0 K/mm3 (0.0-0.1) 08/20/20 05:26 Metamyelocytes # 0.0 K/mm3 08/20/20 05:26 Myelocytes # 0.0 K/mm3 08/20/20 05:26 Promyelocytes # 0.0 K/mm3 08/20/20 05:26 Blast Cells # 0.0 K/mm3 08/20/20 05:26 WBC Morphology Not Reportable 08/20/20 05:26 Hypersegmented Neuts Not Reportable 08/20/20 05:26 Hyposegmented Neuts Not Reportable 08/20/20 05:26 Hypogranular Neuts Not Reportable 08/20/20 05:26 Smudge Cells Not Reportable 08/20/20 05:26 Toxic Granulation Not Reportable 08/20/20 05:26 Toxic Vacuolation Not Reportable 08/20/20 05:26 Dohle Bodies Not Reportable 08/20/20 05:26 Pelger-Huet Anomaly Not Reportable 08/20/20 05:26 Kassi Rods Not Reportable 08/20/20 05:26 Platelet Estimate Consistent w auto 08/20/20 05:26 Clumped Platelets Not Reportable 08/20/20 05:26 Plt Clumps, EDTA Not Reportable 08/20/20 05:26 Large Platelets Not Reportable 08/20/20 05:26 Giant Platelets Not Reportable 08/20/20 05:26 Platelet Satelliting Not Reportable 08/20/20 05:26 Plt Morphology Comment Not Reportable 08/20/20 05:26 RBC Morphology Not Reportable 08/20/20 05:26 Dimorphic RBCs Not Reportable 08/20/20 05:26 Polychromasia Not Reportable 08/20/20 05:26 Hypochromasia Not Reportable 08/20/20 05:26 Poikilocytosis Not Reportable 08/20/20 05:26 Anisocytosis Not Reportable 08/20/20 05:26 Microcytosis Not Reportable 08/20/20 05:26 Macrocytosis Not Reportable 08/20/20 05:26 Spherocytes Not Reportable 08/20/20 05:26 Pappenheimer Bodies Not Reportable 08/20/20 05:26 Sickle Cells Not Reportable 08/20/20 05:26 Target Cells Not Reportable 08/20/20 05:26 Tear Drop Cells Not Reportable 08/20/20 05:26 Ovalocytes Not Reportable 08/20/20 05:26 Helmet Cells Not Reportable 08/20/20 05:26 [place] Bodies Not Reportable 08/20/20 05:26 [place] Rings Not Reportable 08/20/20 05:26 [place] Cells Not Reportable 08/20/20 05:26 Bite Cells Not Reportable 08/20/20 05:26 Crenated Cell Not Reportable 08/20/20 05:26 Elliptocytes Not Reportable 08/20/20 05:26 Acanthocytes (Spur) Not Reportable 08/20/20 05:26 Rouleaux Not Reportable 08/20/20 05:26 Hemoglobin C Crystals Not Reportable 08/20/20 05:26 Schistocytes Not Reportable 08/20/20 05:26 Malaria parasites Not Reportable 08/20/20 05:26 Richard Bodies Not Reportable 08/20/20 05:26 Hem Pathologist Commnt No 08/20/20 05:26 PT 15.4 Sec. (12.2-14.9) H 08/15/20 05:37 INR 1.24 (0.87-1.13) H 08/15/20 05:37 Sodium 138 mmol/L (137-145) D 08/27/20 04:54 Potassium 3.9 mmol/L (3.6-5.0) 08/27/20 04:54 Chloride 105.1 mmol/L (98-107) 08/27/20 04:54 Carbon Dioxide 27 mmol/L (22-30) 08/27/20 04:54 Anion Gap 10 mmol/L 08/27/20 04:54 BUN 8 mg/dL (9-20) L 08/27/20 04:54 Creatinine 0.5 mg/dL (0.8-1.3) L 08/27/20 04:54 Estimated GFR > 60 ml/min 08/27/20 04:54 BUN/Creatinine Ratio 16 % 08/27/20 04:54 Glucose 119 mg/dL (75-100) H 08/27/20 04:54 POC Glucose 103 mg/dL (70-105) 08/29/20 12:02 Lactic Acid 1.50 mmol/L (0.7-2.0) 08/14/20 18:37 Calcium 7.3 mg/dL (8.4-10.2) L 08/27/20 04:54 Phosphorus 3.20 mg/dL (2.5-4.5) 08/26/20 20:17 Magnesium 1.70 mg/dL (1.7-2.3) 08/27/20 04:54 Iron 35 ug/dL (49-181) L 08/27/20 02:40 TIBC 112 mcg/dL (250-450) L 08/27/20 02:40 Ferritin 627.6 ng/mL (30.0-300.0) H 08/27/20 02:40 Total Bilirubin 0.20 mg/dL (0.1-1.2) 08/24/20 07:09 Direct Bilirubin < 0.2 mg/dL (0-0.2) 08/16/20 05:20 Indirect Bilirubin 0.0 mg/dL 08/16/20 05:20 AST 10 units/L (5-40) 08/24/20 07:09 ALT 10 units/L (7-56) 08/24/20 07:09 Alkaline Phosphatase 53 units/L (35-129) 08/24/20 07:09 Total Creatine Kinase 177 units/L (55-170) H 08/15/20 14:22 Troponin T 0.034 ng/mL (0.00-0.029) H 08/14/20 11:02 Total Protein 5.8 g/dL (6.3-8.2) L 08/24/20 07:09 Albumin 1.8 g/dL (3.9-5) L 08/24/20 07:09 Albumin/Globulin Ratio 0.5 % 08/24/20 07:09 Triglycerides 370 mg/dL (2-149) H 08/14/20 11:02 Cholesterol 243 mg/dL (50-199) H 08/14/20 11:02 LDL Cholesterol Direct 130 mg/dL (50-130) 08/14/20 11:02 HDL Cholesterol 34 mg/dL (40-59) L 08/14/20 11:02 Cholesterol/HDL Ratio 7.14 % 08/14/20 11:02 Urine Color Yellow (Yellow) 08/14/20 13:25 Urine Turbidity Turbid (Clear) 08/14/20 13:25 Urine pH 5.0 (5.0-7.0) 08/14/20 13:25 Ur Specific [place] 1.020 (1.003-1.030) 08/14/20 13:25 Urine Protein 100 mg/dl mg/dL (Negative) 08/14/20 13:25 Urine Glucose (UA) Neg mg/dL (Negative) 08/14/20 13:25 Urine Ketones Tr mg/dL (Negative) 08/14/20 13:25 Urine Blood Mod (Negative) 08/14/20 13:25 Urine Nitrite Neg (Negative) 08/14/20 13:25 Urine Bilirubin Neg (Negative) 08/14/20 13:25 Urine Urobilinogen 2.0 mg/dL (<2.0) 08/14/20 13:25 Ur Leukocyte Esterase Mod (Negative) 08/14/20 13:25 Urine WBC (Auto) > 182.0 /HPF (0.0-6.0) H 08/14/20 13:25 Urine RBC (Auto) 56.0 /HPF (0.0-6.0) 08/14/20 13:25 U Epithel Cells (Auto) 2.0 /HPF (0-13.0) 08/14/20 13:25 Urine Bacteria (Auto) 3+ /HPF (Negative) 08/14/20 13:25 Urine WBC Clumps 3+ /HPF 08/14/20 13:25 Urine Mucus 2+ /HPF 08/14/20 13:25 Urine Creatinine 35.9 mg/dL (0.1-20.0) H 08/15/20 22:12 Urine Creatinine 36.0 mg/dL (0.1-20.0) H 08/15/20 22:12 Protein/Creatinin Ratio 3.20 08/15/20 22:12 Urine Sodium 77 mmol/L 08/15/20 22:12 Urine Total Protein 115 mg/dL (5-11.8) H 08/15/20 22:12 Vancomycin Trough 8.9 ug/mL (5.0-20.0) 08/16/20 16:48 Coronavirus (PCR) Negative (Negative) 08/29/20 Unknown Blood Type O POSITIVE 08/27/20 10:42 Antibody Screen Negative 08/27/20 10:42 Crossmatch See Detail 08/27/20 10:42 Rivas/IV: Voiding Method Urinal IV Catheter Type [Left Triple Lumen Cath Internal Jugular] IV Catheter Type [Left INT / Saline Lock Antecubital] Active Medications - Current Medications Current Medications: Generic Name Dose Route Start Last Admin Trade Name Freq PRN Reason Stop Dose Admin Lipase/Protease/Amylase 1 each 08/19/20 16:06 Lipase 10,500/Protease 25,000/Amylase 43,750 (Units) Dr Casper FEEDTUBE PRN PRN For Clogged Feeding Tube Carbamazepine 200 mg 08/15/20 14:00 08/29/20 21:32 Carbamazepine 200 Mg Tab PO 200 mg TID MARSHALL Administration Folic Acid 1 mg 08/15/20 10:00 08/29/20 09:50 Folic Acid 1 Mg Tab PO 1 mg QDAY MARSHALL Administration Dextrose 1,000 mls @ 120 mls/hr 08/26/20 19:00 08/30/20 02:41 D5w IV 120 mls/hr DIRECT MARSHALL Administration Magnesium Hydroxide 30 ml 08/14/20 15:42 Magnesium Hydroxide (Mom) Oral Liqd Udc PO Q4H PRN Constipation Midodrine 5 mg 08/21/20 17:00 08/29/20 15:46 Midodrine 2.5 Mg Tab PO 5 mg TID@0800,1200,1600 MARSHALL Administration Morphine Sulfate 2 mg 08/15/20 17:57 08/23/20 05:26 Morphine 2 Mg/1 Ml Inj IV 2 mg Q6H PRN Administration Pain, Moderate (4-6) Ondansetron HCl 4 mg 08/14/20 15:42 08/19/20 06:04 Ondansetron 4 Mg/2 Ml Inj IV 4 mg Q8H PRN Administration Nausea And Vomiting Potassium Chloride 40 meq 08/23/20 18:00 08/29/20 09:50 Potassium Chloride 20 Meq Packet FEEDTUBE 40 meq QDAY MARSHALL Administration Primidone 250 mg 08/15/20 14:00 08/29/20 21:33 Primidone 250 Mg Tab PO 250 mg TID MARSHALL Administration Scopolamine 1 each 08/26/20 20:00 08/29/20 21:34 Scopolamine Transdermal Patch 72 Hr TD 1 each Q72H MARSHALL Administration Simple Syrup 15 ml 08/19/20 16:06 08/28/20 10:10 Simple Syrup 15 Ml FEEDTUBE 15 ml PRN PRN Administration Hypoglycemia Simple Syrup 30 ml 08/19/20 16:06 08/28/20 00:15 Simple Syrup 15 Ml FEEDTUBE 30 ml PRN PRN Administration Hypoglycemia Sodium Bicarbonate 325 mg 08/19/20 16:06 Sodium Bicarbonate 325 Mg Tab FEEDTUBE PRN PRN For Clogged Feeding Tube Sodium Chloride 10 ml 08/14/20 22:00 08/29/20 21:35 Sodium Chloride 0.9% 10 Ml Flush Syringe IV 10 ml BID MARSHALL Administration Sodium Chloride 10 ml 08/14/20 15:42 08/25/20 01:52 Sodium Chloride 0.9% 10 Ml Flush Syringe IV 10 ml PRN PRN Administration LINE FLUSH Nutrition/Malnutrition Assess - Dietary Evaluation Nutrition/Malnutrition Findings: Nutrition Notes Start: 08/15/20 14:08 Freq: Status: Active Protocol: Document 08/28/20 09:25 EN (Rec: 08/28/20 09:28 EN [id number]) Co-Sign 08/28/20 09:25 MK Nutrition Notes Need for Assessment generated from: MD Order Initial or Follow up Brief Note Current Diagnosis Sepsis Other Pertinent Diagnosis AMS, UTI, hypotension, wound infection, spondylosis Current Diet NPO Subjective/Other Information MD order for write and manage TF. Pt was recommended for PEG placement, but pt refusing and procedure cancelled. TF order entered to restart Dobbhoff feeding. Pt waiting for Barium Swallow and also has edema Nutrition Intervention Change Diet Order: Restart TF Nutrition Support: Jevity 1.2 at 70 mL/hr Flush 100ml q4h Kcal 2,016 Protein (gm) 93 Fluid (mL) 1,355 Add Supplement/Snack (indicate name/kcal Luciano BID /protein ) Provides kCal: 190 Provides Protein (gm) 5 Anticipated Discharge Needs: Unable to determine at this time Follow-Up By: 09/01/20 Additional Comments F/u for TF restart and POC
[2020-08-30] MEDS: MIDODRINE 2.5 MG TAB PO SCH ×3 (10:22→18:00)
[2020-08-30] MEDS: FOLIC ACID 1 MG TAB PO SCH (10:22)
[2020-08-30] MEDS: carBAMazepine 200 MG TAB PO SCH ×3 (10:22→21:14)
[2020-08-30] MEDS: PRIMIDONE 250 MG TAB PO SCH ×3 (10:22→21:15)
[2020-08-30] MEDS: POTASSIUM CHLORIDE 20 MEQ PACKET FEEDTUBE SCH (10:22)
[2020-08-30] MEDS ORDERED: SODIUM CHLORIDE 0.9% 250ML 250 ML IV ONE (21:03)
[2020-08-31] MEDS: MIDODRINE 2.5 MG TAB PO SCH ×3 (08:00→16:42)
[2020-08-31] MEDS: PRIMIDONE 250 MG TAB PO SCH ×3 (10:09→22:04)
[2020-08-31] MEDS: carBAMazepine 200 MG TAB PO SCH ×3 (10:11→22:01)
[2020-08-31] MEDS: POTASSIUM CHLORIDE 20 MEQ PACKET FEEDTUBE SCH (10:11)
[2020-08-31] MEDS: FOLIC ACID 1 MG TAB PO SCH (10:11)
--- NOTE | 2020-08-31 12:53 | Progress Note ---
Assessment and Plan Assessment and plan: --Hypoglycemia; due to poor oral intake Current Visit: Yes Status: Acute Plan to address problem: D5W, encourage oral nutrition, D50 as needed Consider oral glucose gel if no improvement --No dysphagia/modified barium swallow normal study Current Visit: Yes Status: Acute Plan to address problem: Patient request regular diet Modified barium swallow normal study Patient is able to take medications by mouth Ordered regular diet as tolerated Nutrition supplements --Anemia; significant drop in H&H Current Visit: Yes Status: Acute Plan to address problem: Received 2 units PRBC, Hb 9.5 today No external evidence of bleeding Closely monitor H&H and transfuse additional PRBC as needed --Severe protein calorie malnutrition; hypoalbuminemia Current Visit: Yes Status: Acute Plan to address problem: Nutrition supplements, Ensure plus Dietitian following, Tube feeding per protocol Dysphagia, patient needs PEG placement -- Septic shock/resolved Current Visit: Yes Status: Acute Plan to address problem: Monitor off Levophed, with underlying sepsis UTI and infected heel, continue antibiotics IV fluids, Blood cultures-no growth --Sepsis secondary to UTI (urinary tract infection) Current Visit: Yes Status: Acute Plan to address problem: Completed antibiotics --Chronic sacral wound Current Visit: Yes Status: Acute Plan to address problem: wound care, completed antibiotics --Leukocytosis/sepsis Current Visit: Yes Status: Acute Plan to address problem: WBC trending down Completed antibiotics --Hypernatremia; secondary to dehydration D5 W IV fluids, closely monitor electrolytes --DVT prophylaxis Current Visit: Yes Status: Acute Plan to address problem: Subcu heparin --Full code status Current Visit: Yes Status: Acute Plan to address problem: Patient is a full code. We will closely monitor the patient and adjust management as needed Plan of care reviewed with the patient and his nurse Follow repeat swallow evaluation, follow bedside swallow screen Diet as tolerated PT evaluation and treatment Possible discharge back to SNF in 1 to 2 days if stable and cleared by all the consultants 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 and petrophysicist following 08/19/2020; multiple electrolyte abnormalities, hypomagnesemia, hypophosphatemia, hypokalemia, replenish per protocol Patient remains in septic shock, on Levophed, patient is critically ill NG tube placement, tube feeds per protocol 08/20/2020; remains critically ill, septic shock on Levophed, sepsis secondary to UTI on cefepime and Vanco Cultures negative to date, persistent electrolyte abnormalities hypokalemia, hypophosphatemia, hypomagnesemia We will closely monitor electrolytes and adjust as needed 08/21/2020; patient remains Levophed dependent, titrate and DC Receiving tube feeding, continues to have hypokalemia and hypophosphatemia receiving IV K-Phos 08/22/2020; monitor the patient off Levophed, continue Dobbhoff feeds, follow speech therapy evaluation and recommendation If no improvement PEG placement, correct electrolyte abnormalities 08/27/2020; scheduled for PEG today, GI consulted, patient n.p.o. status Significant drop in H&H, will transfuse 2 units of PRBC prior to procedure 08/28/2020; patient refused PEG placement and GI evaluated the patient Patient also removed Dobbhoff tube, reconsult speech therapist for swallow eval Diet as tolerated 08/29/2020; speech therapist recommended pured diet with thin liquids Patient is also having D5W IV fluids, will encourage increased oral intake 08/30/2020; patient does not like pured diet, requests regular diet which was ordered today for lunch We will closely monitor, adjust the management as needed, repeat Covid test negative 08/31/2020; patient feels slightly better, patient is happy that he was given chicken yesterday which he wanted. Able to tolerate regular diet. Possible discharge back to SNF in 1 to 2 days if stable Plan of care reviewed with the patient and his nurse Disposition; placement when patient is medically stable History Interval history: I have seen and examined the patient at the bedside Patient's chart and medications reviewed No new events reported by nursing staff Patient is tolerating regular food without any problems Vital signs noted Hospitalist Physical - Constitutional Vitals: Temp Pulse Resp BP Pulse Ox 98.8 F 89 18 108/58 100 08/31/20 12:21 08/31/20 12:21 08/31/20 12:21 08/31/20 12:21 08/31/20 12:21 General appearance: Present: no acute distress, well-nourished, obese - EENT Eyes: Present: PERRL, EOM intact - Neck Neck: Present: supple, normal ROM - Respiratory Respiratory effort: normal Respiratory: bilateral: diminished, negative: rales, rhonchi, wheezing - Cardiovascular Rhythm: regular Heart Sounds: Present: S1 & S2 - Extremities Extremities: no ischemia, No edema, abnormal (Chronic wounds) - Abdominal General gastrointestinal: soft, non-tender, non-distended, normal bowel sounds - Integumentary Integumentary: Present: clear, warm - Psychiatric Psychiatric: appropriate mood/affect, cooperative - Neurologic Neurologic: moves all extremities HEART Score - HEART Score Troponin: Troponin T 0.034 ng/mL (0.00-0.029) H 08/14/20 11:02 Results - Labs CBC & Chem 7: 08/28/20 06:51 08/27/20 04:54 Labs: Laboratory Last Values WBC 7.7 K/mm3 (4.5-11.0) 08/27/20 04:54 RBC 2.31 M/mm3 (3.65-5.03) L 08/27/20 04:54 Hgb 9.8 gm/dl (11.8-15.2) L 08/28/20 06:51 Hct 28.2 % (35.5-45.6) L D 08/28/20 06:51 MCV 93 fl (84-94) 08/27/20 04:54 MCH 30 pg (28-32) 08/27/20 04:54 MCHC 33 % (32-34) 08/27/20 04:54 RDW 13.9 % (13.2-15.2) 08/27/20 04:54 Plt Count 310 K/mm3 (140-440) 08/27/20 04:54 Lymph % (Auto) 19.2 % (13.4-35.0) 08/27/20 04:54 [place] % (Auto) 7.7 % (0.0-7.3) H 08/27/20 04:54 Eos % (Auto) 1.7 % (0.0-4.3) 08/27/20 04:54 Baso % (Auto) 0.3 % (0.0-1.8) 08/27/20 04:54 Lymph # (Auto) 1.5 K/mm3 (1.2-5.4) 08/27/20 04:54 [place] # (Auto) 0.6 K/mm3 (0.0-0.8) 08/27/20 04:54 Eos # (Auto) 0.1 K/mm3 (0.0-0.4) 08/27/20 04:54 Baso # (Auto) 0.0 K/mm3 (0.0-0.1) 08/27/20 04:54 Add Manual Diff Complete 08/20/20 05:26 Total Counted 100 08/20/20 05:26 Seg Neutrophils % 71.1 % (40.0-70.0) H 08/27/20 04:54 Seg Neuts % (Manual) 78.0 % (40.0-70.0) H 08/20/20 05:26 Band Neutrophils % 5.0 % 08/15/20 14:22 Lymphocytes % (Manual) 11.0 % (13.4-35.0) L 08/20/20 05:26 Monocytes % (Manual) 6.0 % (0.0-7.3) 08/20/20 05:26 Eosinophils % (Manual) 5.0 % (0.0-4.3) H 08/20/20 05:26 Metamyelocytes % 1.0 % 08/15/20 14:22 Nucleated RBC % Not Reportable 08/20/20 05:26 Seg Neutrophils # 5.5 K/mm3 (1.8-7.7) 08/27/20 04:54 Seg Neutrophils # Man 6.7 K/mm3 (1.8-7.7) 08/20/20 05:26 Band Neutrophils # 0.0 K/mm3 08/20/20 05:26 Lymphocytes # (Manual) 0.9 K/mm3 (1.2-5.4) L 08/20/20 05:26 Abs React Lymphs (Man) 0.0 K/mm3 08/20/20 05:26 Monocytes # (Manual) 0.5 K/mm3 (0.0-0.8) 08/20/20 05:26 Eosinophils # (Manual) 0.4 K/mm3 (0.0-0.4) 08/20/20 05:26 Basophils # (Manual) 0.0 K/mm3 (0.0-0.1) 08/20/20 05:26 Metamyelocytes # 0.0 K/mm3 08/20/20 05:26 Myelocytes # 0.0 K/mm3 08/20/20 05:26 Promyelocytes # 0.0 K/mm3 08/20/20 05:26 Blast Cells # 0.0 K/mm3 08/20/20 05:26 WBC Morphology Not Reportable 08/20/20 05:26 Hypersegmented Neuts Not Reportable 08/20/20 05:26 Hyposegmented Neuts Not Reportable 08/20/20 05:26 Hypogranular Neuts Not Reportable 08/20/20 05:26 Smudge Cells Not Reportable 08/20/20 05:26 Toxic Granulation Not Reportable 08/20/20 05:26 Toxic Vacuolation Not Reportable 08/20/20 05:26 Dohle Bodies Not Reportable 08/20/20 05:26 Pelger-Huet Anomaly Not Reportable 08/20/20 05:26 Kassi Rods Not Reportable 08/20/20 05:26 Platelet Estimate Consistent w auto 08/20/20 05:26 Clumped Platelets Not Reportable 08/20/20 05:26 Plt Clumps, EDTA Not Reportable 08/20/20 05:26 Large Platelets Not Reportable 08/20/20 05:26 Giant Platelets Not Reportable 08/20/20 05:26 Platelet Satelliting Not Reportable 08/20/20 05:26 Plt Morphology Comment Not Reportable 08/20/20 05:26 RBC Morphology Not Reportable 08/20/20 05:26 Dimorphic RBCs Not Reportable 08/20/20 05:26 Polychromasia Not Reportable 08/20/20 05:26 Hypochromasia Not Reportable 08/20/20 05:26 Poikilocytosis Not Reportable 08/20/20 05:26 Anisocytosis Not Reportable 08/20/20 05:26 Microcytosis Not Reportable 08/20/20 05:26 Macrocytosis Not Reportable 08/20/20 05:26 Spherocytes Not Reportable 08/20/20 05:26 Pappenheimer Bodies Not Reportable 08/20/20 05:26 Sickle Cells Not Reportable 08/20/20 05:26 Target Cells Not Reportable 08/20/20 05:26 Tear Drop Cells Not Reportable 08/20/20 05:26 Ovalocytes Not Reportable 08/20/20 05:26 Helmet Cells Not Reportable 08/20/20 05:26 [place] Bodies Not Reportable 08/20/20 05:26 [place] Rings Not Reportable 08/20/20 05:26 Rhea Cells Not Reportable 08/20/20 05:26 Bite Cells Not Reportable 08/20/20 05:26 Crenated Cell Not Reportable 08/20/20 05:26 Elliptocytes Not Reportable 08/20/20 05:26 Acanthocytes (Spur) Not Reportable 08/20/20 05:26 Rouleaux Not Reportable 08/20/20 05:26 Hemoglobin C Crystals Not Reportable 08/20/20 05:26 Schistocytes Not Reportable 08/20/20 05:26 Malaria parasites Not Reportable 08/20/20 05:26 Richard Bodies Not Reportable 08/20/20 05:26 Hem Pathologist Commnt No 08/20/20 05:26 PT 15.4 Sec. (12.2-14.9) H 08/15/20 05:37 INR 1.24 (0.87-1.13) H 08/15/20 05:37 Sodium 138 mmol/L (137-145) D 08/27/20 04:54 Potassium 3.9 mmol/L (3.6-5.0) 08/27/20 04:54 Chloride 105.1 mmol/L (98-107) 08/27/20 04:54 Carbon Dioxide 27 mmol/L (22-30) 08/27/20 04:54 Anion Gap 10 mmol/L 08/27/20 04:54 BUN 8 mg/dL (9-20) L 08/27/20 04:54 Creatinine 0.5 mg/dL (0.8-1.3) L 08/27/20 04:54 Estimated GFR > 60 ml/min 08/27/20 04:54 BUN/Creatinine Ratio 16 % 08/27/20 04:54 Glucose 119 mg/dL (75-100) H 08/27/20 04:54 POC Glucose 103 mg/dL (70-105) 08/29/20 12:02 Lactic Acid 1.50 mmol/L (0.7-2.0) 08/14/20 18:37 Calcium 7.3 mg/dL (8.4-10.2) L 08/27/20 04:54 Phosphorus 3.20 mg/dL (2.5-4.5) 08/26/20 20:17 Magnesium 1.70 mg/dL (1.7-2.3) 08/27/20 04:54 Iron 35 ug/dL (49-181) L 08/27/20 02:40 TIBC 112 mcg/dL (250-450) L 08/27/20 02:40 Ferritin 627.6 ng/mL (30.0-300.0) H 08/27/20 02:40 Total Bilirubin 0.20 mg/dL (0.1-1.2) 08/24/20 07:09 Direct Bilirubin < 0.2 mg/dL (0-0.2) 08/16/20 05:20 Indirect Bilirubin 0.0 mg/dL 08/16/20 05:20 AST 10 units/L (5-40) 08/24/20 07:09 ALT 10 units/L (7-56) 08/24/20 07:09 Alkaline Phosphatase 53 units/L (35-129) 08/24/20 07:09 Total Creatine Kinase 177 units/L (55-170) H 08/15/20 14:22 Troponin T 0.034 ng/mL (0.00-0.029) H 08/14/20 11:02 Total Protein 5.8 g/dL (6.3-8.2) L 08/24/20 07:09 Albumin 1.8 g/dL (3.9-5) L 08/24/20 07:09 Albumin/Globulin Ratio 0.5 % 08/24/20 07:09 Triglycerides 370 mg/dL (2-149) H 08/14/20 11:02 Cholesterol 243 mg/dL (50-199) H 08/14/20 11:02 LDL Cholesterol Direct 130 mg/dL (50-130) 08/14/20 11:02 HDL Cholesterol 34 mg/dL (40-59) L 08/14/20 11:02 Cholesterol/HDL Ratio 7.14 % 08/14/20 11:02 Urine Color Yellow (Yellow) 08/14/20 13:25 Urine Turbidity Turbid (Clear) 08/14/20 13:25 Urine pH 5.0 (5.0-7.0) 08/14/20 13:25 Ur Specific [place] 1.020 (1.003-1.030) 08/14/20 13:25 Urine Protein 100 mg/dl mg/dL (Negative) 08/14/20 13:25 Urine Glucose (UA) Neg mg/dL (Negative) 08/14/20 13:25 Urine Ketones Tr mg/dL (Negative) 08/14/20 13:25 Urine Blood Mod (Negative) 08/14/20 13:25 Urine Nitrite Neg (Negative) 08/14/20 13:25 Urine Bilirubin Neg (Negative) 08/14/20 13:25 Urine Urobilinogen 2.0 mg/dL (<2.0) 08/14/20 13:25 Ur Leukocyte Esterase Mod (Negative) 08/14/20 13:25 Urine WBC (Auto) > 182.0 /HPF (0.0-6.0) H 08/14/20 13:25 Urine RBC (Auto) 56.0 /HPF (0.0-6.0) 08/14/20 13:25 U Epithel Cells (Auto) 2.0 /HPF (0-13.0) 08/14/20 13:25 Urine Bacteria (Auto) 3+ /HPF (Negative) 08/14/20 13:25 Urine WBC Clumps 3+ /HPF 08/14/20 13:25 Urine Mucus 2+ /HPF 08/14/20 13:25 Urine Creatinine 35.9 mg/dL (0.1-20.0) H 08/15/20 22:12 Urine Creatinine 36.0 mg/dL (0.1-20.0) H 08/15/20 22:12 Protein/Creatinin Ratio 3.20 08/15/20 22:12 Urine Sodium 77 mmol/L 08/15/20 22:12 Urine Total Protein 115 mg/dL (5-11.8) H 08/15/20 22:12 Vancomycin Trough 8.9 ug/mL (5.0-20.0) 08/16/20 16:48 Coronavirus (PCR) Negative (Negative) 08/29/20 Unknown Blood Type O POSITIVE 08/27/20 10:42 Antibody Screen Negative 08/27/20 10:42 Crossmatch See Detail 08/27/20 10:42 Rivas/IV: Voiding Method Incontinent IV Catheter Type [Left Triple Lumen Cath Internal Jugular] IV Catheter Type [Left INT / Saline Lock Antecubital] Active Medications - Current Medications Current Medications: Generic Name Dose Route Start Last Admin Trade Name Freq PRN Reason Stop Dose Admin Lipase/Protease/Amylase 1 each 08/19/20 16:06 Lipase 10,500/Protease 25,000/Amylase 43,750 (Units) Dr Casper FEEDTUBE PRN PRN For Clogged Feeding Tube Carbamazepine 200 mg 08/15/20 14:00 08/31/20 10:11 Carbamazepine 200 Mg Tab PO 200 mg TID MARSHALL Administration Folic Acid 1 mg 08/15/20 10:00 08/31/20 10:11 Folic Acid 1 Mg Tab PO 1 mg QDAY MARSHALL Administration Magnesium Hydroxide 30 ml 08/14/20 15:42 Magnesium Hydroxide (Mom) Oral Liqd Udc PO Q4H PRN Constipation Midodrine 5 mg 08/21/20 17:00 08/31/20 08:00 Midodrine 2.5 Mg Tab PO 5 mg TID@0800,1200,1600 MARSHALL Administration Morphine Sulfate 2 mg 08/15/20 17:57 08/23/20 05:26 Morphine 2 Mg/1 Ml Inj IV 2 mg Q6H PRN Administration Pain, Moderate (4-6) Ondansetron HCl 4 mg 08/14/20 15:42 08/19/20 06:04 Ondansetron 4 Mg/2 Ml Inj IV 4 mg Q8H PRN Administration Nausea And Vomiting Potassium Chloride 40 meq 08/23/20 18:00 08/31/20 10:11 Potassium Chloride 20 Meq Packet FEEDTUBE 40 meq QDAY MARSHALL Administration Primidone 250 mg 08/15/20 14:00 08/31/20 10:09 Primidone 250 Mg Tab PO 250 mg TID MARSHALL Administration Scopolamine 1 each 08/26/20 20:00 08/29/20 21:34 Scopolamine Transdermal Patch 72 Hr TD 1 each Q72H MARSHALL Administration Sodium Chloride 10 ml 08/14/20 22:00 08/31/20 10:09 Sodium Chloride 0.9% 10 Ml Flush Syringe IV 10 ml BID MARSHALL Administration Sodium Chloride 10 ml 08/14/20 15:42 08/25/20 01:52 Sodium Chloride 0.9% 10 Ml Flush Syringe IV 10 ml PRN PRN Administration LINE FLUSH Nutrition/Malnutrition Assess - Dietary Evaluation Nutrition/Malnutrition Findings: Nutrition Notes Start: 08/15/20 14:08 Freq: Status: Active Protocol: Document 08/28/20 09:25 EN (Rec: 08/28/20 09:28 EN [id number]) Co-Sign 08/28/20 09:25 MK Nutrition Notes Need for Assessment generated from: MD Order Initial or Follow up Brief Note Current Diagnosis Sepsis Other Pertinent Diagnosis AMS, UTI, hypotension, wound infection, spondylosis Current Diet NPO Subjective/Other Information MD order for write and manage TF. Pt was recommended for PEG placement, but pt refusing and procedure cancelled. TF order entered to restart Dobbhoff feeding. Pt waiting for Barium Swallow and also has edema Nutrition Intervention Change Diet Order: Restart TF Nutrition Support: Jevity 1.2 at 70 mL/hr Flush 100ml q4h Kcal 2,016 Protein (gm) 93 Fluid (mL) 1,355 Add Supplement/Snack (indicate name/kcal Luciano BID /protein ) Provides kCal: 190 Provides Protein (gm) 5 Anticipated Discharge Needs: Unable to determine at this time Follow-Up By: 09/01/20 Additional Comments F/u for TF restart and POC
[2020-09-01] MEDS: POTASSIUM CHLORIDE 20 MEQ PACKET FEEDTUBE SCH (09:55)
[2020-09-01] MEDS: FOLIC ACID 1 MG TAB PO SCH (09:55)
[2020-09-01] MEDS: carBAMazepine 200 MG TAB PO SCH ×3 (09:55→22:31)
[2020-09-01] MEDS: MIDODRINE 2.5 MG TAB PO SCH (09:56)
[2020-09-01] MEDS: PRIMIDONE 250 MG TAB PO SCH ×3 (09:56→22:31)
[2020-09-01] MEDS: MIDODRINE 5 MG TAB PO SCH ×2 (11:37→17:26)
--- NOTE | 2020-09-01 16:08 | Progress Note ---
Assessment and Plan Assessment and plan: --Hypoglycemia; due to poor oral intake Current Visit: Yes Status: Acute Plan to address problem: D5W, encourage oral nutrition, D50 as needed Consider oral glucose gel if no improvement --No dysphagia/modified barium swallow normal study Current Visit: Yes Status: Acute Plan to address problem: Patient request regular diet Modified barium swallow normal study Patient is able to take medications by mouth Ordered regular diet as tolerated Nutrition supplements --Anemia; significant drop in H&H Current Visit: Yes Status: Acute Plan to address problem: Received 2 units PRBC, Hb 9.5 today No external evidence of bleeding Closely monitor H&H and transfuse additional PRBC as needed --Severe protein calorie malnutrition; hypoalbuminemia Current Visit: Yes Status: Acute Plan to address problem: Nutrition supplements, Ensure plus Dietitian following, Tube feeding per protocol Dysphagia, patient needs PEG placement -- Septic shock/resolved Current Visit: Yes Status: Acute Plan to address problem: Monitor off Levophed, with underlying sepsis UTI and infected heel, continue antibiotics IV fluids, Blood cultures-no growth --Sepsis secondary to UTI (urinary tract infection) Current Visit: Yes Status: Acute Plan to address problem: Completed antibiotics --Chronic sacral wound Current Visit: Yes Status: Acute Plan to address problem: wound care, completed antibiotics --Leukocytosis/sepsis Current Visit: Yes Status: Acute Plan to address problem: WBC trending down Completed antibiotics --Hypernatremia; secondary to dehydration D5 W IV fluids, closely monitor electrolytes --DVT prophylaxis Current Visit: Yes Status: Acute Plan to address problem: Subcu heparin --Full code status Current Visit: Yes Status: Acute Plan to address problem: Patient is a full code. We will closely monitor the patient and adjust management as needed Plan of care reviewed with the patient and his nurse Follow repeat swallow evaluation, follow bedside swallow screen Diet as tolerated PT evaluation and treatment Possible discharge back to SNF in 1 to 2 days if stable and cleared by all the consultants 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 and sports anchor following 08/19/2020; multiple electrolyte abnormalities, hypomagnesemia, hypophosphatemia, hypokalemia, replenish per protocol Patient remains in septic shock, on Levophed, patient is critically ill NG tube placement, tube feeds per protocol 08/20/2020; remains critically ill, septic shock on Levophed, sepsis secondary to UTI on cefepime and Vanco Cultures negative to date, persistent electrolyte abnormalities hypokalemia, hypophosphatemia, hypomagnesemia We will closely monitor electrolytes and adjust as needed 08/21/2020; patient remains Levophed dependent, titrate and DC Receiving tube feeding, continues to have hypokalemia and hypophosphatemia receiving IV K-Phos 08/22/2020; monitor the patient off Levophed, continue Dobbhoff feeds, follow speech therapy evaluation and recommendation If no improvement PEG placement, correct electrolyte abnormalities 08/27/2020; scheduled for PEG today, GI consulted, patient n.p.o. status Significant drop in H&H, will transfuse 2 units of PRBC prior to procedure 08/28/2020; patient refused PEG placement and GI evaluated the patient Patient also removed Dobbhoff tube, reconsult speech therapist for swallow eval Diet as tolerated 08/29/2020; speech therapist recommended pured diet with thin liquids Patient is also having D5W IV fluids, will encourage increased oral intake 08/30/2020; patient does not like pured diet, requests regular diet which was ordered today for lunch We will closely monitor, adjust the management as needed, repeat Covid test negative 08/31/2020; patient feels slightly better, patient is happy that he was given chicken yesterday which he wanted. Able to tolerate regular diet. 09/01/2020; possible discharge back to SNF tomorrow if stable Case management checking with bed availability at [facility] Possible discharge back to SNF in 1 to 2 days if stable Plan of care reviewed with the patient and his nurse Disposition; placement when patient is medically stable History Interval history: I have seen and examined the patient at the bedside Patient's chart and medications reviewed Patient feels slightly better Vital signs noted Hospitalist Physical - Constitutional Vitals: Temp Pulse Resp BP Pulse Ox 98.2 F 86 20 114/60 100 09/01/20 08:43 09/01/20 10:00 09/01/20 08:43 09/01/20 08:43 09/01/20 08:43 General appearance: Present: no acute distress, well-nourished, obese - EENT Eyes: Present: PERRL, EOM intact - Neck Neck: Present: supple, normal ROM - Respiratory Respiratory effort: normal Respiratory: bilateral: diminished, negative: rales, rhonchi, wheezing - Cardiovascular Rhythm: regular Heart Sounds: Present: S1 & S2 - Extremities Extremities: no ischemia, No edema - Abdominal General gastrointestinal: soft, non-tender, non-distended, normal bowel sounds - Integumentary Integumentary: Present: clear, warm - Psychiatric Psychiatric: appropriate mood/affect, cooperative - Neurologic Neurologic: CNII-XII intact, moves all extremities HEART Score - HEART Score Troponin: Troponin T 0.034 ng/mL (0.00-0.029) H 08/14/20 11:02 Results - Labs CBC & Chem 7: 08/28/20 06:51 08/27/20 04:54 Labs: Laboratory Last Values WBC 7.7 K/mm3 (4.5-11.0) 08/27/20 04:54 RBC 2.31 M/mm3 (3.65-5.03) L 08/27/20 04:54 Hgb 9.8 gm/dl (11.8-15.2) L 08/28/20 06:51 Hct 28.2 % (35.5-45.6) L D 08/28/20 06:51 MCV 93 fl (84-94) 08/27/20 04:54 MCH 30 pg (28-32) 08/27/20 04:54 MCHC 33 % (32-34) 08/27/20 04:54 RDW 13.9 % (13.2-15.2) 08/27/20 04:54 Plt Count 310 K/mm3 (140-440) 08/27/20 04:54 Lymph % (Auto) 19.2 % (13.4-35.0) 08/27/20 04:54 [place] % (Auto) 7.7 % (0.0-7.3) H 08/27/20 04:54 Eos % (Auto) 1.7 % (0.0-4.3) 08/27/20 04:54 Baso % (Auto) 0.3 % (0.0-1.8) 08/27/20 04:54 Lymph # (Auto) 1.5 K/mm3 (1.2-5.4) 08/27/20 04:54 [place] # (Auto) 0.6 K/mm3 (0.0-0.8) 08/27/20 04:54 Eos # (Auto) 0.1 K/mm3 (0.0-0.4) 08/27/20 04:54 Baso # (Auto) 0.0 K/mm3 (0.0-0.1) 08/27/20 04:54 Add Manual Diff Complete 08/20/20 05:26 Total Counted 100 08/20/20 05:26 Seg Neutrophils % 71.1 % (40.0-70.0) H 08/27/20 04:54 Seg Neuts % (Manual) 78.0 % (40.0-70.0) H 08/20/20 05:26 Band Neutrophils % 5.0 % 08/15/20 14:22 Lymphocytes % (Manual) 11.0 % (13.4-35.0) L 08/20/20 05:26 Monocytes % (Manual) 6.0 % (0.0-7.3) 08/20/20 05:26 Eosinophils % (Manual) 5.0 % (0.0-4.3) H 08/20/20 05:26 Metamyelocytes % 1.0 % 08/15/20 14:22 Nucleated RBC % Not Reportable 08/20/20 05:26 Seg Neutrophils # 5.5 K/mm3 (1.8-7.7) 08/27/20 04:54 Seg Neutrophils # Man 6.7 K/mm3 (1.8-7.7) 08/20/20 05:26 Band Neutrophils # 0.0 K/mm3 08/20/20 05:26 Lymphocytes # (Manual) 0.9 K/mm3 (1.2-5.4) L 08/20/20 05:26 Abs React Lymphs (Man) 0.0 K/mm3 08/20/20 05:26 Monocytes # (Manual) 0.5 K/mm3 (0.0-0.8) 08/20/20 05:26 Eosinophils # (Manual) 0.4 K/mm3 (0.0-0.4) 08/20/20 05:26 Basophils # (Manual) 0.0 K/mm3 (0.0-0.1) 08/20/20 05:26 Metamyelocytes # 0.0 K/mm3 08/20/20 05:26 Myelocytes # 0.0 K/mm3 08/20/20 05:26 Promyelocytes # 0.0 K/mm3 08/20/20 05:26 Blast Cells # 0.0 K/mm3 08/20/20 05:26 WBC Morphology Not Reportable 08/20/20 05:26 Hypersegmented Neuts Not Reportable 08/20/20 05:26 Hyposegmented Neuts Not Reportable 08/20/20 05:26 Hypogranular Neuts Not Reportable 08/20/20 05:26 Smudge Cells Not Reportable 08/20/20 05:26 Toxic Granulation Not Reportable 08/20/20 05:26 Toxic Vacuolation Not Reportable 08/20/20 05:26 Dohle Bodies Not Reportable 08/20/20 05:26 Pelger-Huet Anomaly Not Reportable 08/20/20 05:26 Kassi Rods Not Reportable 08/20/20 05:26 Platelet Estimate Consistent w auto 08/20/20 05:26 Clumped Platelets Not Reportable 08/20/20 05:26 Plt Clumps, EDTA Not Reportable 08/20/20 05:26 Large Platelets Not Reportable 08/20/20 05:26 Giant Platelets Not Reportable 08/20/20 05:26 Platelet Satelliting Not Reportable 08/20/20 05:26 Plt Morphology Comment Not Reportable 08/20/20 05:26 RBC Morphology Not Reportable 08/20/20 05:26 Dimorphic RBCs Not Reportable 08/20/20 05:26 Polychromasia Not Reportable 08/20/20 05:26 Hypochromasia Not Reportable 08/20/20 05:26 Poikilocytosis Not Reportable 08/20/20 05:26 Anisocytosis Not Reportable 08/20/20 05:26 Microcytosis Not Reportable 08/20/20 05:26 Macrocytosis Not Reportable 08/20/20 05:26 Spherocytes Not Reportable 08/20/20 05:26 Pappenheimer Bodies Not Reportable 08/20/20 05:26 Sickle Cells Not Reportable 08/20/20 05:26 Target Cells Not Reportable 08/20/20 05:26 Tear Drop Cells Not Reportable 08/20/20 05:26 Ovalocytes Not Reportable 08/20/20 05:26 Helmet Cells Not Reportable 08/20/20 05:26 [place]-Granbury Bodies Not Reportable 08/20/20 05:26 Cecil Rings Not Reportable 08/20/20 05:26 [place] Cells Not Reportable 08/20/20 05:26 Bite Cells Not Reportable 08/20/20 05:26 Crenated Cell Not Reportable 08/20/20 05:26 Elliptocytes Not Reportable 08/20/20 05:26 Acanthocytes (Spur) Not Reportable 08/20/20 05:26 Rouleaux Not Reportable 08/20/20 05:26 Hemoglobin C Crystals Not Reportable 08/20/20 05:26 Schistocytes Not Reportable 08/20/20 05:26 Malaria parasites Not Reportable 08/20/20 05:26 Richard Bodies Not Reportable 08/20/20 05:26 Hem Pathologist Commnt No 08/20/20 05:26 PT 15.4 Sec. (12.2-14.9) H 08/15/20 05:37 INR 1.24 (0.87-1.13) H 08/15/20 05:37 Sodium 138 mmol/L (137-145) D 08/27/20 04:54 Potassium 3.9 mmol/L (3.6-5.0) 08/27/20 04:54 Chloride 105.1 mmol/L (98-107) 08/27/20 04:54 Carbon Dioxide 27 mmol/L (22-30) 08/27/20 04:54 Anion Gap 10 mmol/L 08/27/20 04:54 BUN 8 mg/dL (9-20) L 08/27/20 04:54 Creatinine 0.5 mg/dL (0.8-1.3) L 08/27/20 04:54 Estimated GFR > 60 ml/min 08/27/20 04:54 BUN/Creatinine Ratio 16 % 08/27/20 04:54 Glucose 119 mg/dL (75-100) H 08/27/20 04:54 POC Glucose 80 mg/dL (70-105) 08/31/20 22:00 Lactic Acid 1.50 mmol/L (0.7-2.0) 08/14/20 18:37 Calcium 7.3 mg/dL (8.4-10.2) L 08/27/20 04:54 Phosphorus 3.20 mg/dL (2.5-4.5) 08/26/20 20:17 Magnesium 1.70 mg/dL (1.7-2.3) 08/27/20 04:54 Iron 35 ug/dL (49-181) L 08/27/20 02:40 TIBC 112 mcg/dL (250-450) L 08/27/20 02:40 Ferritin 627.6 ng/mL (30.0-300.0) H 08/27/20 02:40 Total Bilirubin 0.20 mg/dL (0.1-1.2) 08/24/20 07:09 Direct Bilirubin < 0.2 mg/dL (0-0.2) 08/16/20 05:20 Indirect Bilirubin 0.0 mg/dL 08/16/20 05:20 AST 10 units/L (5-40) 08/24/20 07:09 ALT 10 units/L (7-56) 08/24/20 07:09 Alkaline Phosphatase 53 units/L (35-129) 08/24/20 07:09 Total Creatine Kinase 177 units/L (55-170) H 08/15/20 14:22 Troponin T 0.034 ng/mL (0.00-0.029) H 08/14/20 11:02 Total Protein 5.8 g/dL (6.3-8.2) L 08/24/20 07:09 Albumin 1.8 g/dL (3.9-5) L 08/24/20 07:09 Albumin/Globulin Ratio 0.5 % 08/24/20 07:09 Triglycerides 370 mg/dL (2-149) H 08/14/20 11:02 Cholesterol 243 mg/dL (50-199) H 08/14/20 11:02 LDL Cholesterol Direct 130 mg/dL (50-130) 08/14/20 11:02 HDL Cholesterol 34 mg/dL (40-59) L 08/14/20 11:02 Cholesterol/HDL Ratio 7.14 % 08/14/20 11:02 Urine Color Yellow (Yellow) 08/14/20 13:25 Urine Turbidity Turbid (Clear) 08/14/20 13:25 Urine pH 5.0 (5.0-7.0) 08/14/20 13:25 Ur Specific [place] 1.020 (1.003-1.030) 08/14/20 13:25 Urine Protein 100 mg/dl mg/dL (Negative) 08/14/20 13:25 Urine Glucose (UA) Neg mg/dL (Negative) 08/14/20 13:25 Urine Ketones Tr mg/dL (Negative) 08/14/20 13:25 Urine Blood Mod (Negative) 08/14/20 13:25 Urine Nitrite Neg (Negative) 08/14/20 13:25 Urine Bilirubin Neg (Negative) 08/14/20 13:25 Urine Urobilinogen 2.0 mg/dL (<2.0) 08/14/20 13:25 Ur Leukocyte Esterase Mod (Negative) 08/14/20 13:25 Urine WBC (Auto) > 182.0 /HPF (0.0-6.0) H 08/14/20 13:25 Urine RBC (Auto) 56.0 /HPF (0.0-6.0) 08/14/20 13:25 U Epithel Cells (Auto) 2.0 /HPF (0-13.0) 08/14/20 13:25 Urine Bacteria (Auto) 3+ /HPF (Negative) 08/14/20 13:25 Urine WBC Clumps 3+ /HPF 08/14/20 13:25 Urine Mucus 2+ /HPF 08/14/20 13:25 Urine Creatinine 35.9 mg/dL (0.1-20.0) H 08/15/20 22:12 Urine Creatinine 36.0 mg/dL (0.1-20.0) H 08/15/20 22:12 Protein/Creatinin Ratio 3.20 08/15/20 22:12 Urine Sodium 77 mmol/L 08/15/20 22:12 Urine Total Protein 115 mg/dL (5-11.8) H 08/15/20 22:12 Vancomycin Trough 8.9 ug/mL (5.0-20.0) 08/16/20 16:48 Coronavirus (PCR) Negative (Negative) 08/29/20 Unknown Blood Type O POSITIVE 08/27/20 10:42 Antibody Screen Negative 08/27/20 10:42 Crossmatch See Detail 08/27/20 10:42 Rivas/IV: Voiding Method Toilet IV Catheter Type [Left Triple Lumen Cath Internal Jugular] IV Catheter Type [Left INT / Saline Lock Antecubital] Active Medications - Current Medications Current Medications: Generic Name Dose Route Start Last Admin Trade Name Freq PRN Reason Stop Dose Admin Lipase/Protease/Amylase 1 each 08/19/20 16:06 Lipase 10,500/Protease 25,000/Amylase 43,750 (Units) Dr Casper FEEDTUBE PRN PRN For Clogged Feeding Tube Carbamazepine 200 mg 08/15/20 14:00 09/01/20 14:12 Carbamazepine 200 Mg Tab PO 200 mg TID MARSHALL Administration Folic Acid 1 mg 08/15/20 10:00 09/01/20 09:55 Folic Acid 1 Mg Tab PO 1 mg QDAY MARSHALL Administration Magnesium Hydroxide 30 ml 08/14/20 15:42 Magnesium Hydroxide (Mom) Oral Liqd Udc PO Q4H PRN Constipation Midodrine 5 mg 09/01/20 12:00 09/01/20 11:37 Midodrine 5 Mg Tab PO 5 mg 0800,1200,1600 MARSHALL Administration Morphine Sulfate 2 mg 08/15/20 17:57 08/23/20 05:26 Morphine 2 Mg/1 Ml Inj IV 2 mg Q6H PRN Administration Pain, Moderate (4-6) Ondansetron HCl 4 mg 08/14/20 15:42 08/19/20 06:04 Ondansetron 4 Mg/2 Ml Inj IV 4 mg Q8H PRN Administration Nausea And Vomiting Potassium Chloride 40 meq 08/23/20 18:00 09/01/20 09:55 Potassium Chloride 20 Meq Packet FEEDTUBE 40 meq QDAY MARSHALL Administration Primidone 250 mg 08/15/20 14:00 09/01/20 14:08 Primidone 250 Mg Tab PO 250 mg TID MARSHALL Administration Scopolamine 1 each 08/26/20 20:00 08/29/20 21:34 Scopolamine Transdermal Patch 72 Hr TD 1 each Q72H MARSHALL Administration Sodium Chloride 10 ml 08/14/20 22:00 09/01/20 10:03 Sodium Chloride 0.9% 10 Ml Flush Syringe IV 10 ml BID MARSHALL Administration Sodium Chloride 10 ml 08/14/20 15:42 08/25/20 01:52 Sodium Chloride 0.9% 10 Ml Flush Syringe IV 10 ml PRN PRN Administration LINE FLUSH Nutrition/Malnutrition Assess - Dietary Evaluation Nutrition/Malnutrition Findings: Nutrition Notes Start: 08/15/20 14:08 Freq: Status: Active Protocol: Document 09/01/20 14:17 (Rec: 09/01/20 14:26 [id number]) Nutrition Notes Initial or Follow up Reassessment Current Diagnosis Sepsis Other Pertinent Diagnosis AMS, UTI, hypotension, wound infection, spondylosis Current Diet Mechanical soft with ground meats Labs/Tests Reviewed Pertinent Medications Kcl 40 mEq Height 6 ft Weight 100.7 kg [place] Body Weight (kg) 80.90 BMI 30.1 Weight change and time frame Pt with significant wt fluctuations Weight Status Obese Subjective/Other Information FU for intakes. [employer] recommends mechanical soft with ground meats. Per chart, pt refused dinner last night. Pt reported eating 2 bowls of cereal for breakfast. Pt gagging and felt as if he would vomit at time of visit. Percent of energy/protein needs met: 11%/9% Burn Absent Trauma Absent GI Symptoms Nausea Difficulty In Swallowing Skin Integrity/Comment Bhaskar Score of 11 Current % PO Negligible Minimum of two criteria No #2 Nutrition Diagnosis Inadequate oral intake As Evidenced by Signs and Symptoms pt eating <25% of meals Diagnosis Progress(for reassessment Continues documentation) #1 Nutrition Diagnosis Increased nutrient needs ( specify in comment below) Diagnosis Progress(for reassessment Continues documentation) Is patient on ventilator? No Is Patient Ambulatory and/or Out of Bed No REE-([facility]-confined to bed) 2136.084 Kcal/Kg value to use for calculation 18 Approximate Energy Requirements Using 1813 kcal/Kg Calculation Used for Recommendations Kcal/kg Additional Notes Protein needs: 105 - 126g (1. 25-1.5g/kg ABW) Fluid needs: 1 mL/kcal Nutrition Intervention Change [facility] Add Supplement/Snack (indicate name/kcal Luciano BID /protein ) Ensure BID Provides kCal: 890 Provides Protein (gm) 45 Goal #1 Meet at least 75% of estimated energy and protein needs via TF Goal #2 Wound healing Anticipated Discharge Needs: Mechanical soft with ground meats Follow-Up By: 09/03/20 Additional Comments FU for intakes, ONS tolerance, Luciano
[2020-09-01] MEDS: SCOPOLAMINE TRANSDERMAL PATCH 72 HR TD SCH (22:31)
[2020-09-02 09:10] VITALS: BP 103/59
[2020-09-02] MEDS: carBAMazepine 200 MG TAB PO SCH ×2 (09:36→13:52)
[2020-09-02] MEDS: POTASSIUM CHLORIDE 20 MEQ PACKET FEEDTUBE SCH (09:36)
[2020-09-02] MEDS: MIDODRINE 5 MG TAB PO SCH ×2 (09:36→13:52)
[2020-09-02] MEDS: PRIMIDONE 250 MG TAB PO SCH ×2 (09:36→13:51)
[2020-09-02] MEDS: FOLIC ACID 1 MG TAB PO SCH (09:36)
--- NOTE | 2020-09-02 13:39 | Discharge Summary ---
Providers - Providers Date of Admission: 08/14/20 14:32 Date of discharge: 09/02/20 Attending physician: ÁNGEL RENE 08/14/20 15:42 Consult to Dietitian/Nutrition [CONS] Routine Physician Instructions: Reason For Exam: Reason for Consult: Diet education 08/14/20 15:56 Consult to Physician [CONS] Routine Comment: Consulting Provider: TRACY ALVARADO Physician Instructions: Reason For Exam: Acute Renal Failure 08/15/20 22:20 Speech Therapy Evaluation and Treat [CONS] Routine Reason For Exam: inability to swallow 08/18/20 06:30 Speech Therapy Evaluation and Treat [CONS] Urgent Reason For Exam: pocketing 08/18/20 10:44 Occupational Therapy Evaluate and Treat [CONS] Routine Comment: Reason For Exam: Pt not participating in feeding self Physical Therapy Evaluation and Treat [CONS] Routine Comment: Reason For Exam: pt not active nor particpating in care 08/19/20 16:06 Consult to Dietitian/Nutrition [CONS] Routine Physician Instructions: Assess nutrtn needs, initiate, modify, manage TF Reason For Exam: Reason for Consult: Write/Manage Tube Feeding Reason for Consult: Write/Manage Tube Feeding 08/22/20 11:54 Consult to Wound/ET Nurse [CONS] Routine Reason For Exam: wound eval 08/26/20 18:13 Consult to Physician [CONS] Routine Comment: Consulting Provider: ALFREDO MANNING Physician Instructions: Reason For Exam: Dysphagia/failed swallow/PEG placement 08/27/20 18:39 Speech Therapy Evaluation and Treat [CONS] Routine Reason For Exam: Swallow re eval and diet recommendations/ 08/27/20 19:54 Consult to Dietitian/Nutrition [CONS] Routine Physician Instructions: Assess nutrtn needs, initiate, modify, manage TF Reason For Exam: Reason for Consult: Write/Manage Tube Feeding Reason for Consult: Write/Manage Tube Feeding Primary care physician: SEED COLLECTOR Hospitalization Reason for admission: Sepsis with septic shock/toxic metabolic encephalopathy Condition: Stable Pertinent studies: Multiple chest x-rays Abdominal x-rays Modified barium swallow Procedures: Central line placement Wound care Hospital course: 75-year-old male resident of a shelter brought into the emergency room for evaluation of changes in mental status and low blood pressure. Upon arrival in the emergency room blood pressure was found to be 70s systolic and 30s diastolic, tachycardic in the 160s. Patient was subsequently placed on IV fluid with improvement in his blood pressure and mentation. He denies any chest pain or shortness of breath, no nausea or vomiting, no diarrhea, no headache or dizziness, no hematuria or dysuria. Patient indicates that he has not been able to walk because he was diagnosed with spondylosis and multiple bulging disc. Work-up revealed a leukocytosis of 22, lactic acid of 4.9, sodium of 152. He also had elevated BUN and creatinine. Urinalysis reveals UTI. Patient has been admitted for dehydration, sepsis secondary to UTI. With septic shock Discharge diagnosis/and management --Hypoglycemia; due to poor oral intake present on admission Current Visit: Yes Status: Acute Plan to address problem: Now resolved, blood sugars reasonable level Patient is taking oral mechanical soft diet --Dysphagia/present on admission modified barium swallow normal study Current Visit: Yes Status: Acute Plan to address problem: Patient on mechanical soft diet advance as tolerated --Anemia; significant drop in H&H Current Visit: Yes Status: Acute Plan to address problem: Received 2 units PRBC, Hb 9.5 today No external evidence of bleeding Closely monitor H&H and transfuse additional PRBC as needed --Toxic metabolic encephalopathy; POA Current Visit: Yes Status: Acute Plan to address problem: due to sepsis and septic shock Received appropriate treatment now resolved --Severe protein calorie malnutrition; hypoalbuminemia Current Visit: Yes Status: Acute Plan to address problem: Nutrition supplements, Ensure plus Dietitian following, Tube feeding per protocol Dysphagia, patient needs PEG placement -- Septic shock/resolved Current Visit: Yes Status: Acute Plan to address problem: Monitor off Levophed, with underlying sepsis UTI and infected heel, continue antibiotics IV fluids, Blood cultures-no growth --Sepsis secondary to UTI (urinary tract infection) Current Visit: Yes Status: Acute Plan to address problem: Completed antibiotics --Chronic stage III sacral decubitus wound Current Visit: Yes Status: Acute Plan to address problem: wound care, completed antibiotics. --Stage IV left heel decubitus wound; Current Visit: Yes Status: Acute Plan to address problem: Completed antibiotics, wound care as instructed surgical consult when needed --Leukocytosis/sepsis Current Visit: Yes Status: Acute Plan to address problem: WBC normal levels Completed antibiotics --Hypernatremia; secondary to dehydration D5 W IV fluids, resolved --DVT prophylaxis Current Visit: Yes Status: Acute Plan to address problem: Subcu heparin --Full code status Current Visit: Yes Status: Acute Plan to address problem: Patient is a full code. Patient is hemodynamically and clinically stable at discharge to SNF today Disposition: DC/[place]-[facility] Time spent for discharge: 35 min Core Measure Documentation - Palliative Care Palliative Care/ Comfort Measures: Not Applicable - Core Measures Any of the following diagnoses?: none Exam - Constitutional Vitals: Temp Pulse Resp BP Pulse Ox 97.9 F 104 H 18 103/59 97 09/02/20 09:09 09/02/20 09:09 09/02/20 09:09 09/02/20 09:09 09/02/20 09:09 General appearance: Present: no acute distress, well-nourished - EENT Eyes: Present: PERRL, EOM intact - Neck Neck: Present: supple, normal ROM - Respiratory Respiratory effort: normal Respiratory: bilateral: diminished, negative: rales, rhonchi, wheezing - Cardiovascular Rhythm: regular Heart Sounds: Present: S1 & S2 - Extremities Extremities: abnormal (Chronic leg wounds, stage IV decubitus of heel) Extremity abnormal: edema - Abdominal General gastrointestinal: Present: soft, non-tender, non-distended, normal bowel sounds - Integumentary Integumentary: Present: clear, warm, erythema (Stage IV left heel decubitus, stage III sacral decubitus) - Musculoskeletal Musculoskeletal: generalized weakness - Psychiatric Psychiatric: appropriate mood/affect, cooperative - Neurologic Neurologic: moves all extremities, other (Residual weakness) Plan Activity: advance as tolerated, fall precautions Diet: advance as tolerated, other (Mechanical soft diet) Wound: per wound nurse instructions Additional Instructions: Wound care per instructions. Fall precautions. Aspiration precautions Follow up with: PRIMARY CARE, [Primary Care Provider] - 3-5 Days Prescriptions: oxyCODONE /ACETAMINOPHEN [Percocet 5/325 mg] 1 tab PO Q6H PRN #14 tablet PRN Reason: Pain, Moderate (4-6) Midodrine [Proamatine] 5 mg PO 0800,1200,1600 #90 tablet
== END 2020-09-02 17:30 | DRG 871 ==
LOC: ED 09:57 → CC1 14:32 → 4A 08-15 15:06 → CC1 08-15 19:45 → 4A 08-20 16:41 → IMCU 08-20 23:51 → CC1 08-21 07:06 → 4A 08-21 16:41
PROVIDERS: ADMIT Internal Medicine Geriatric Medicine; ATTEND Internal Medicine
PROC: 0D963ZZ Drainage of Stomach, Percutaneous Approach (ICD-10-PCS; principal; 2020-08-14)
PROC: 02HV33Z Insertion of Infusion Device into Superior Vena Cava, Percutaneous Approach (ICD-10-PCS; 2020-08-15)
PROC: B548ZZA Ultrasonography of Superior Vena Cava, Guidance (ICD-10-PCS; 2020-08-15)
PROC: 30233N1 Transfusion of Nonautologous Red Blood Cells into Peripheral Vein, Percutaneous Approach (ICD-10-PCS; 2020-08-27)
DX: A41.9 Sepsis, unspecified organism (principal); L89.153 Pressure ulcer of sacral region, stage 3; L89.624 Pressure ulcer of left heel, stage 4; N17.0 Acute kidney failure with tubular necrosis; E43 Unspecified severe protein-calorie malnutrition; G92 Toxic encephalopathy; R65.21 Severe sepsis with septic shock; N39.0 Urinary tract infection, site not specified; E87.0 Hyperosmolality and hypernatremia; E87.1 Hypo-osmolality and hyponatremia; E86.0 Dehydration; D64.9 Anemia, unspecified; E87.6 Hypokalemia; E83.39 Other disorders of phosphorus metabolism; E83.42 Hypomagnesemia; Z20.822 Contact with and (suspected) exposure to COVID-19; R13.10 Dysphagia, unspecified; E16.2 Hypoglycemia, unspecified; E88.09 Other disorders of plasma-protein metabolism, not elsewhere classified; Z68.29 Body mass index [BMI] 29.0-29.9, adult; Z79.899 Other long term (current) drug therapy
CPT/HCPCS: 36415; 71045; 74018; 74230; 80048; 80053; 80061; 80076; 80202; 81001; 82140; 82270; 82550; 82570; 82728; 82962; 83550; 83735; 84100; 84132; 84156; 84300; 84484; 85007; 85014; 85018; 85025; 85610; 86850; 86900; 86901; 86920; 87040; 87086; 93005; G0378; J0692; J1644; J2270; J2405; J2543; J3370; J3475; J3480; J7030; J7040; J7050; J7070; J7120; P9016; U0003

== ENCOUNTER 2020-10-26 16:33 | Inpatient (IN) | payer OTHER, MEDICARE ==
[2020-10-26] MEDS ORDERED: ROCURONIUM 50 MG/5 ML INJ IV ONE ×2 (16:36→17:29)
[2020-10-26] MEDS ORDERED: SODIUM CHLORIDE 0.9% 1000 ML 1,000 ML ONE (16:37)
[2020-10-26] MEDS ORDERED: KETAMINE 500 MG/5 ML VIAL MDV ONE (16:37)
[2020-10-26] MEDS ORDERED: SODIUM CHLORIDE 0.9% 1000 ML 1,000 ML IV ONE (16:40)
[2020-10-26] MEDS ORDERED: ACETAMINOPHEN 650 MG RECT SUPP PR ONE ×2 (16:55→17:02)
[2020-10-26] MEDS ORDERED: ACETAMINOPHEN 325 MG RECT SUPP PR ONE ×2 (16:55→17:02)
[2020-10-26] MEDS ORDERED: SODIUM CHLORIDE 0.9% 500 ML IVPB IV PRN (17:25)
[2020-10-26] MEDS ORDERED: CEFEPIME/NS 2 GM/100 ML 2 GM/100 ML BAG IV ONE (17:25)
[2020-10-26] MEDS ORDERED: MINERAL OIL/PETROLATUM, WHITE OPHTH OINT 3.5 GM OU PRN (17:25)
[2020-10-26] MEDS ORDERED: LIP THERAPY VASELINE TP PRN (17:25)
[2020-10-26] MEDS ORDERED: fentaNYL 100 MCG/2 ML INJ IV PRN (17:25)
[2020-10-26] MEDS ORDERED: LACTATED RINGERS 1000 ML IV SOLN IV ONE (17:25)
[2020-10-26] MEDS ORDERED: metroNIDAZOLE/NS 500 MG/100 ML 500 MG/100 ML BAG IV ONE (17:25)
[2020-10-26] MEDS ORDERED: KETAMINE 500 MG/5 ML VIAL MDV IV ONE (17:29)
--- NOTE | 2020-10-26 17:30 | Emergency Department Report ---
ED General Adult HPI - General Chief complaint: Dyspnea/Respdistress Stated complaint: AMS PUI?: No Source: EMS (Verbal report received from emergency medical services. EMS documentation not available at time of chart dictation ), RN notes reviewed, old records reviewed Mode of arrival: Stretcher Limitations: Altered Mental Status, Physical Limitation - History of Present Illness Initial comments: The patient was evaluated in the emergency department for symptoms described in the history of present illness. He/she was evaluated in the context of the global COVID-19 pandemic, which necessitated consideration that the patient might be at risk for infection with the virus that causes COVID-19. Institutional protocols and algorithms that pertain to the evaluation of patients at risk for COVID-19 are in a state of rapid change based on informati on released by regulatory bodies including the CDC and federal and state organizations. These policies and algorithms were followed during the patient's care in the emergency department. Please note that these policies, procedures and recommendations changed on a rapid basis. This is a 75-year-old gentleman. He comes to this ER from a local snf. Patient has a past medical history of hypoglycemia, dysphagia, anemia, toxic metabolic encephalopathy, severe protein calorie malnutrition, hypoalbuminemia, septic shock, urinary tract infection, chronic sacral wound. He is brought to the hospital by EMS with a complaint of weakness and altered mental status. His last known well time is not known. EMS reports the patient was hypoxic and hypotensive in the field. EMS reports they found the patient laying in bed. Apparently, a local snf where the patient resides contacted EMS. EMS does not have advanced directives or goals of care with them. The patient himself is acutely altered, not able to describe the qualitative nature of his symptoms, exacerbating factors, relieving factors or aggravating factors. Charge nurse Evita Lam called up patient's snf 8 times, to obtain goals of care, advanced directives, and additional information/history, however, nobody answered her phone call. Initially upon arrival to this emergency room, patient markedly tachypneic, dry mucous membranes without gag reflex, and hypoxic. He was intubated with video laryngoscopy emergently, by myself, with 1 attempt, without need for induction or paralysis. The patient was hypotensive, and found to be febrile to 103 degrees, with evidence of obviously infected sacral wound. He was therefore emergently administratively consented by myself for sterile central line placement, for IV access, initiation of IV fluids, norepinephrine, broad-spectrum antibiotics. Patient currently intubated, mechanically ventilated, no additional history is available at this time. -: unknown Radiation: other Severity scale (0 -10): 0 Quality: other Consistency: other Improves with: other Worsens with: other Associated Symptoms: other Treatments Prior to Arrival: other - Related Data Home Medications Medication Instructions Recorded Confirmed Last Taken Folic Acid [Folvite] 1 mg PO QDAY 01/10/19 08/14/20 Unknown Primidone [Mysoline] 250 mg PO TID 01/10/19 08/14/20 Unknown carBAMazepine [Carbamazepine] 200 mg PO TID 01/10/19 08/14/20 Unknown Aspirin [Aspirin BABY CHEW TAB] 81 mg PO QDAY 08/15/20 08/15/20 Unknown AtorvaSTATin [Lipitor] 40 mg PO QHS 08/15/20 08/15/20 Unknown Citalopram Hydrobromide 20 mg PO QDAY 08/15/20 08/15/20 Unknown [Citalopram HBr] Ergocalciferol [Vitamin D2] 1 cap PO QWEEK 08/15/20 08/15/20 Unknown Folic Acid [Folvite] 1 mg PO QDAY 08/15/20 08/15/20 Unknown Mirtazapine 7.5 mg PO QHS 08/15/20 08/15/20 Unknown guaiFENesin ER [Mucinex ER] 600 mg PO Q12H 08/15/20 08/15/20 Unknown Previous Rx's Medication Instructions Recorded Last Taken Type Midodrine [Proamatine] 5 mg PO 0800,1200,1600 #90 tablet 09/02/20 Unknown Rx oxyCODONE /ACETAMINOPHEN [Percocet 1 tab PO Q6H PRN #14 tablet 09/02/20 Unknown Rx 5/325 mg] Allergies Allergy/AdvReac Type Severity Reaction Status Date / Time No Known Allergies Allergy Verified 01/10/19 02:20 ED Review of Systems ROS: Stated complaint: AMS Other details as noted in HPI Comment: Unobtainable due to pts medical conditions ED Past Medical Hx - Past Medical History Previous Medical History?: Yes Hx CVA: Yes Hx Seizures: Yes Hx Psychiatric Treatment: Yes (Depression, PTSD) Additional medical history: Failure to thrive, chronic venous insufficiency - Social History Smoking Status: Unknown if ever smoked - Medications Home Medications: Home Medications Medication Instructions Recorded Confirmed Last Taken Type Folic Acid [Folvite] 1 mg PO QDAY 01/10/19 08/14/20 Unknown History Primidone [Mysoline] 250 mg PO TID 01/10/19 08/14/20 Unknown History carBAMazepine [Carbamazepine] 200 mg PO TID 01/10/19 08/14/20 Unknown History Aspirin [Aspirin BABY CHEW TAB] 81 mg PO QDAY 08/15/20 08/15/20 Unknown History AtorvaSTATin [Lipitor] 40 mg PO QHS 08/15/20 08/15/20 Unknown History Citalopram Hydrobromide 20 mg PO QDAY 08/15/20 08/15/20 Unknown History [Citalopram HBr] Ergocalciferol [Vitamin D2] 1 cap PO QWEEK 08/15/20 08/15/20 Unknown History Folic Acid [Folvite] 1 mg PO QDAY 08/15/20 08/15/20 Unknown History Mirtazapine 7.5 mg PO QHS 08/15/20 08/15/20 Unknown History guaiFENesin ER [Mucinex ER] 600 mg PO Q12H 08/15/20 08/15/20 Unknown History Midodrine [Proamatine] 5 mg PO 0800,1200,1600 #90 tablet 09/02/20 Unknown Rx oxyCODONE /ACETAMINOPHEN [Percocet 1 tab PO Q6H PRN #14 tablet 09/02/20 Unknown Rx 5/325 mg] ED Physical Exam - General Limitations: Altered Mental Status, Physical Limitation General appearance: obtunded - Head Head exam: Present: atraumatic, normocephalic - Eye Eye exam: Present: normal appearance - ENT ENT exam: Present: mucous membranes dry - Neck Neck exam: Present: normal inspection - Respiratory Respiratory exam: Present: respiratory distress, rhonchi, accessory muscle use - Cardiovascular Cardiovascular Exam: Present: normal rhythm, tachycardia, normal heart sounds. Absent: bradycardia, irregular rhythm, systolic murmur, diastolic murmur, rubs, gallop - GI/Abdominal GI/Abdominal exam: Present: soft. Absent: distended, tenderness, guarding, rebound, rigid, pulsatile mass - Rectal Rectal exam: Present: other (There is a large unstageable sacral wound, with foul-smelling discharge noted, and obvious purulence). Absent: normal i nspection - exam: Present: normal inspection External exam: Present: normal external exam - Extremities Exam Extremities exam: Present: other (Thready pulses noted in the bilateral upper and lower extremities. Venous stasis noted in the bilateral lower extremities. Chronic wounds noted in the bilateral lower extremities) - Back Exam Back exam: Present: normal inspection. Absent: tenderness, paraspinal tenderness - Neurological Exam Neurological exam: Present: altered, other (The patient is awake. The patient is nonverbal. The patient's eyes are open spontaneously) - Skin Skin exam: Present: warm, other (Purulent infected sacral wounds noted) ED Course Vital Signs 10/26/20 10/26/20 10/26/20 16:36 16:40 16:45 Temperature Pulse Rate 128 H 127 H 127 H Pulse Rate [ None] Respiratory 41 H 42 H 42 H Rate Blood Pressure 104/86 104/86 O2 Sat by Pulse 99 69 L Oximetry 10/26/20 10/26/20 10/26/20 16:51 16:55 16:59 Temperature Pulse Rate 123 H 125 H 121 H Pulse Rate [ None] Respiratory 30 H 35 H Rate Blood Pressure 104/86 104/86 82/39 O2 Sat by Pulse 88 97 Oximetry 10/26/20 10/26/20 10/26/20 17:01 17:02 17:05 Temperature 103 F H Pulse Rate 121 H 120 H 120 H Pulse Rate [ None] Respiratory 36 H 34 H 36 H Rate Blood Pressure 174/83 89/56 82/39 O2 Sat by Pulse 74 L Oximetry 10/26/20 10/26/20 10/26/20 17:11 17:15 17:21 Temperature Pulse Rate 120 H 121 H 121 H Pulse Rate [ None] Respiratory 34 H 34 H 34 H Rate Blood Pressure 89/56 89/56 87/54 O2 Sat by Pulse 100 100 Oximetry 10/26/20 10/26/20 10/26/20 17:25 17:31 17:33 Temperature Pulse Rate 120 H 121 H Pulse Rate [ None] Respiratory 33 H 33 H 33 H Rate Blood Pressure 87/54 91/55 O2 Sat by Pulse 100 Oximetry 10/26/20 10/26/20 10/26/20 17:35 17:41 17:45 Temperature Pulse Rate 120 H 120 H 120 H Pulse Rate [ None] Respiratory 33 H 33 H 32 H Rate Blood Pressure 91/55 82/50 82/50 O2 Sat by Pulse Oximetry 10/26/20 10/26/20 10/26/20 17:51 17:55 18:19 Temperature Pulse Rate 120 H 114 H 121 H Pulse Rate [ None] Respiratory 32 H 33 H 33 H Rate Blood Pressure 83/48 81/42 83/41 O2 Sat by Pulse Oximetry 10/26/20 10/26/20 10/26/20 18:21 18:25 18:31 Temperature Pulse Rate 119 H 121 H 121 H Pulse Rate [ None] Respiratory 33 H 32 H 32 H Rate Blood Pressure 83/41 81/27 93/47 O2 Sat by Pulse 96 Oximetry 10/26/20 10/26/20 10/26/20 18:35 18:51 18:55 Temperature Pulse Rate 121 H 121 H 121 H Pulse Rate [ None] Respiratory 32 H 32 H 33 H Rate Blood Pressure 94/57 102/54 103/52 O2 Sat by Pulse 100 Oximetry 10/26/20 10/26/20 10/26/20 18:58 19:00 19:05 Temperature 98.8 F Pulse Rate 121 H 120 H Pulse Rate [ None] Respiratory 32 H 30 H Rate Blood Pressure 98/59 98/59 O2 Sat by Pulse Oximetry 10/26/20 10/26/20 10/26/20 19:11 19:15 19:20 Temperature Pulse Rate 120 H 119 H 119 H Pulse Rate [ None] Respiratory 30 H 29 H 28 H Rate Blood Pressure 99/55 103/59 102/61 O2 Sat by Pulse 89 88 95 Oximetry 10/26/20 10/26/20 10/26/20 19:25 19:31 19:35 Temperature Pulse Rate 118 H 115 H 116 H Pulse Rate [ None] Respiratory 28 H 30 H 28 H Rate Blood Pressure 100/59 91/59 93/63 O2 Sat by Pulse 92 94 94 Oximetry 10/26/20 10/26/20 10/26/20 19:38 19:40 19:45 Temperature 98.1 F Pulse Rate 116 H 116 H Pulse Rate [ None] Respiratory 27 H 25 H Rate Blood Pressure 92/61 106/62 O2 Sat by Pulse 93 93 Oximetry 10/26/20 10/26/20 10/26/20 19:50 19:55 20:00 Temperature Pulse Rate 117 H 117 H Pulse Rate [ None] Respiratory 25 H 25 H Rate Blood Pressure 106/61 100/64 108/60 O2 Sat by Pulse 92 94 93 Oximetry 10/26/20 10/26/20 10/26/20 20:05 20:10 20:15 Temperature Pulse Rate 116 H 116 H 116 H Pulse Rate [ None] Respiratory 24 22 23 Rate Blood Pressure 106/64 102/63 99/64 O2 Sat by Pulse 93 93 92 Oximetry 10/26/20 10/26/20 10/26/20 20:20 20:30 20:35 Temperature Pulse Rate 114 H 113 H 112 H Pulse Rate [ None] Respiratory 22 21 21 Rate Blood Pressure 94/61 111/63 106/65 O2 Sat by Pulse 94 94 94 Oximetry 10/26/20 10/26/20 10/26/20 20:40 20:45 20:50 Temperature Pulse Rate 112 H 111 H 112 H Pulse Rate [ None] Respiratory 20 21 20 Rate Blood Pressure 107/64 114/65 111/64 O2 Sat by Pulse 94 94 95 Oximetry 10/26/20 10/26/20 10/26/20 20:55 21:00 21:05 Temperature Pulse Rate 112 H 110 H 112 H Pulse Rate [ None] Respiratory 21 17 21 Rate Blood Pressure 108/64 102/62 110/66 O2 Sat by Pulse 95 95 95 Oximetry 10/26/20 10/26/20 10/26/20 21:50 22:15 22:17 Temperature 98.9 F Pulse Rate 107 H 109 H Pulse Rate [ 109 H 109 H None] Respiratory 17 38 H 29 H Rate Blood Pressure 100/60 82/56 100/67 O2 Sat by Pulse 98 97 97 Oximetry - Reevaluation(s) Reevaluation #1: 10/26/20 18:19 Lactic acidosis consistent with sepsis. Elevated troponin is likely a type II troponin leak. Patient also found to have evidence of metabolic acidosis. Hyponatremia likely secondary to dehydration, likely secondary to sepsis. 10/26/20 18:31 Hospital physician, Dr. Dileep Silverio to admit to the icu General surgery has been consulted for infected necrotic wound. Critical care physician has been consulted for placement to the intensive care unit and vent management. Reevaluation #2: 10/26/20 19:18 Nursing team instructed to advance nasogastric tube 5 to 6 inches. I have personally advanced the patient's central line approximately 4 to 5 cm using sterile gloves and technique. EKG pending. - Consultations Consultation #1: 10/26/20 18:31 Discussed history, physical, pertinent laboratory studies and imaging findings with critical care, Dr. Monk, who agrees with placement into the intensive care unit. Consultation #2: 10/26/20 18:31 Discussed history, physical, laboratory studies, imaging findings with general surgery on-call, Dr. Ruiz, who agrees to follow in consultation. - Central Line Placement Left IJ Consent Obtained: emergent situation Time Out Performed: No (Emergency situation) Patient Placed on Monitor/Pulse Ox: Yes MD Prep: mask, gown, gloves Central Line Prep: Chlorhexidine scrub Local Anesthesia Used: Lidocaine 1% Amount of Anesthesia Used (mls): 8 Ultrasound Used for Placement: Yes Central Line Lumen Inserted: triple Reason for Insertion: High Alert Medication Bloods Obtained for Lab: Yes Central Line Position: good blood return, all ports aspirated, flus, sutured in place with 2-0 Dressing Applied: Tegaderm Post Procedure X-Ray: tip of catheter in good p, other (X-ray read is reviewed and appreciated. Catheter tip will be advanced) Patient Tolerated Procedure: well Complications: none - EJ/Peripheral Line Neck R Time Out Performed: Yes Indications: nurses unable to establis Skin Cleansed in Sterile Fashion: Yes Size: 20 Dressing Placed: Tegaderm Patient Tolerated Procedure: well - Intubation Time Out Performed: No (Emergency situation) Sedative: none (Not necessary) Laryngoscope: fiberoptic video scope Size: 3 Assist Device Used: fiberoptic device ET Tube Size: 7.5 Tube Secured Depth (cm): 24 Tube Secured Location: teeth Tube Placement Confirmation: visualized tube passing t, equal breath sounds bilat, no breath sounds over epi, confirmation by capnometr Patient Tolerated Procedure: well Intubation Complications: none ED Medical Decision Making - Lab Data Result diagrams: 10/28/20 00:40 10/28/20 05:36 Vital Signs 10/26/20 10/26/20 10/26/20 16:36 16:40 16:45 Temperature Pulse Rate 128 H 127 H 127 H Respiratory 41 H 42 H 42 H Rate Blood Pressure 104/86 104/86 O2 Sat by Pulse 99 69 L Oximetry 10/26/20 10/26/20 10/26/20 16:51 16:55 16:59 Temperature Pulse Rate 123 H 125 H 121 H Respiratory 30 H 35 H Rate Blood Pressure 104/86 104/86 82/39 O2 Sat by Pulse 88 97 Oximetry 10/26/20 10/26/20 10/26/20 17:01 17:02 17:05 Temperature 103 F H Pulse Rate 121 H 120 H 120 H Respiratory 36 H 34 H 36 H Rate Blood Pressure 174/83 89/56 82/39 O2 Sat by Pulse 74 L Oximetry 10/26/20 10/26/20 10/26/20 17:11 17:15 17:21 Temperature Pulse Rate 120 H 121 H 121 H Respiratory 34 H 34 H 34 H Rate Blood Pressure 89/56 89/56 87/54 O2 Sat by Pulse 100 100 Oximetry 10/26/20 10/26/20 10/26/20 17:25 17:31 17:33 Temperature Pulse Rate 120 H 121 H Respiratory 33 H 33 H 33 H Rate Blood Pressure 87/54 91/55 O2 Sat by Pulse 100 Oximetry 10/26/20 17:35 Temperature Pulse Rate 120 H Respiratory 33 H Rate Blood Pressure 91/55 O2 Sat by Pulse Oximetry Lab Results 10/26/20 10/26/20 10/26/20 Range/Units 17:25 17:25 17:25 WBC 23.3 H (4.5-11.0) K/mm3 RBC 3.10 L (3.65-5.03) M/mm3 Hgb 9.6 L (11.8-15.2) gm/dl Hct 30.3 L (35.5-45.6) % MCV 98 H (84-94) fl MCH 31 (28-32) pg MCHC 32 (32-34) % RDW 17.4 H (13.2-15.2) % Plt Count 521 H (140-440) K/mm3 APTT 27.9 (24.2-36.6) Sec. ABG pH (7.350-7.450) pH Units ABG pCO2 mm Hg ABG pO2 (80.0-90.0) mm Hg ABG HCO3 (20.0-26.0) mmol/L ABG O2 Saturation (95.0-99.0) % ABG O2 Content (0.0-44) ABG Base Excess (-2.0-3.0) mmol/L ABG Hemoglobin (14.0-18.0) gm/dl ABG Carboxyhemoglobin (0.0-5.0) % ABG Methemoglobin (0.0-1.5) % Oxyhemoglobin (95.0-99.0) % FiO2 % Estimated GFR 55 ml/min BUN/Creatinine Ratio 38 % Lactic Acid (0.7-2.0) mmol/L Magnesium (1.7-2.3) mg/dL Total Creatine Kinase (55-170) units/L Albumin/Globulin Ratio 0.3 % Salicylates (2.8-20.0) mg/dL Acetaminophen (10.0-30.0) ug/mL 10/26/20 10/26/20 10/26/20 Range/Units 17:25 17:28 17:28 WBC (4.5-11.0) K/mm3 RBC (3.65-5.03) M/mm3 Hgb (11.8-15.2) gm/dl Hct (35.5-45.6) % MCV (84-94) fl MCH (28-32) pg MCHC (32-34) % RDW (13.2-15.2) % Plt Count (140-440) K/mm3 APTT (24.2-36.6) Sec. ABG pH (7.350-7.450) pH Units ABG pCO2 mm Hg ABG pO2 (80.0-90.0) mm Hg ABG HCO3 (20.0-26.0) mmol/L ABG O2 Saturation (95.0-99.0) % ABG O2 Content (0.0-44) ABG Base Excess (-2.0-3.0) mmol/L ABG Hemoglobin (14.0-18.0) gm/dl ABG Carboxyhemoglobin (0.0-5.0) % ABG Methemoglobin (0.0-1.5) % Oxyhemoglobin (95.0-99.0) % FiO2 % Estimated GFR ml/min BUN/Creatinine Ratio % Lactic Acid 9.60 H* (0.7-2.0) mmol/L Magnesium 1.90 (1.7-2.3) mg/dL Total Creatine Kinase 31 L (55-170) units/L Albumin/Globulin Ratio % Salicylates < 0.3 L (2.8-20.0) mg/dL Acetaminophen (10.0-30.0) ug/mL 10/26/20 10/26/20 Range/Units 17:28 17:30 WBC (4.5-11.0) K/mm3 RBC (3.65-5.03) M/mm3 Hgb (11.8-15.2) gm/dl Hct (35.5-45.6) % MCV (84-94) fl MCH (28-32) pg MCHC (32-34) % RDW (13.2-15.2) % Plt Count (140-440) K/mm3 APTT (24.2-36.6) Sec. ABG pH 7.235 L (7.350-7.450) pH Units ABG pCO2 39.5 mm Hg ABG pO2 312.4 H (80.0-90.0) mm Hg ABG HCO3 16.4 L (20.0-26.0) mmol/L ABG O2 Saturation 99.5 H (95.0-99.0) % ABG O2 Content 15.9 (0.0-44) ABG Base Excess -10.4 L (-2.0-3.0) mmol/L ABG Hemoglobin 11.0 L (14.0-18.0) gm/dl ABG Carboxyhemoglobin 1.1 (0.0-5.0) % ABG Methemoglobin 0.8 (0.0-1.5) % Oxyhemoglobin 97.7 (95.0-99.0) % FiO2 100 % Estimated GFR ml/min BUN/Creatinine Ratio % Lactic Acid (0.7-2.0) mmol/L Magnesium (1.7-2.3) mg/dL Total Creatine Kinase (55-170) units/L Albumin/Globulin Ratio % Salicylates (2.8-20.0) mg/dL Acetaminophen 5.0 L (10.0-30.0) ug/mL - Radiology Data Radiology results: report reviewed, image reviewed CHEST 1 VIEW 10/26/2020 5:26 PM INDICATION / CLINICAL INFORMATION: ETT placement. COMPARISON: 08/15/20 FINDINGS: SUPPORT DEVICES: Endotracheal tube is present 5.6 cm above the lina. Esophagogastric tube tip is at the gastroesophageal junction with the sidehole in the distal esophagus. Left subclavian central line has pulled back slightly into the distal jugular vein. HEART / MEDIASTINUM: Stable. LUNGS / PLEURA: Chronic appearing streaky bibasilar densities. No pneumothorax. ADDITIONAL FINDINGS: No significant additional findings. IMPRESSION: 1. Endotracheal tube in expected position. 2. Esophagogastric tube in the distal esophagus. The tube should be advanced 10 cm for optimal positioning. 3. Left jugular central line has pulled back into the distal jugular vein. Signer Name: Ignacio Myers MD Signed: 10/26/2020 4:49 PM Workstation Name: [id number] INDICATION / CLINICAL INFORMATION: 75 years Male; acute ams. TECHNIQUE: Routine CT head without contrast. All CT scans at this location are performed using CT dose reduction for [employer] by means of automated exposure control. COMPARISON: CT scan of the head from 01/12/2019 FINDINGS: BRAIN / INTRACRANIAL CONTENTS: No acute hemorrhage, mass effect, midline shift, hydrocephalus, or acute, large territorial infarct. Change in the left frontal lobe encephalomalacia with dystrophic calcification low-attenuation periventricular white matter in the frontal region due to chronic small vessel disease CRANIOCERVICAL JUNCTION: No significant abnormality. ORBITS: No significant abnormality of visualized orbits. SINUSES / MASTOIDS: No significant abnormality of the visualized paranasal sinuses or mastoid air cells. ADDITIONAL FINDINGS: None. IMPRESSION: No focal mass, hemorrhage, hydrocephalus, or acute, large territorial infarct. CT findings remain unchanged since 01/12/2019 Signer Name: Rakan Arroyo MD Signed: 10/26/2020 5:32 PM Workstation Name: [id number] CT CHEST, ABDOMEN, AND PELVIS WITHOUT CONTRAST INDICATION / CLINICAL INFORMATION: Infected sacral wound, sepsis, respiratory failure. TECHNIQUE: Axial CT images were obtained through the chest, abdomen, and pelvis without contrast. All CT scans at this location are performed using CT dose reduction for ALARA by means of automated exposure control. COMPARISON: None available. FINDINGS: HEART: No significant abnormality. CORONARY ARTERY CALCIFICATION: Moderate. THORACIC AORTA: No significant abnormality. MEDIASTINUM / RACHEL: No significant abnormality. PLEURA: No pleural effusion. No pneumothorax. LUNGS: Bilateral lower lobe airspace disease characteristic of pneumonia. ADDITIONAL CHEST FINDINGS: Endotracheal tube in expected position. Esophagogastric tube at the gastroesophageal junction. LIVER: No significant abnormality. GALLBLADDER: No significant abnormality. BILE DUCTS: No significant abnormality. PANCREAS: No significant abnormality. SPLEEN: No significant abnormality. ADRENALS: No significant abnormality. RIGHT KIDNEY / URETER: No significant abnormality. LEFT KIDNEY / URETER: No significant abnormality. STOMACH and SMALL BOWEL: No dilated small bowel. COLON: No significant abnormality. APPENDIX: No significant abnormality. PERITONEUM: No free fluid. No free air. No fluid collection. LYMPH NODES: No significant adenopathy. AORTA / ARTERIES: Mild atherosclerotic calcification without acute abnormality. IVC / VEINS: No significant abnormality. URINARY BLADDER: Contracted around only catheter. REPRODUCTIVE ORGANS: No significant abnormality. ADDITIONAL FINDINGS: Sacral decubitus ulcer over the posterior aspect of the sacrum extending to bone. There is erosion of the coccyx. There is moderate subcutaneous soft tissue gas around the distal s acrum extending into the left ischiorectal fossa, left buttock, and back soft tissues. SKELETAL SYSTEM: No additional acute osseous abnormality. IMPRESSION: 1. Sacral decubitus ulcer with erosion of the coccyx and moderate soft tissue gas extending into the left ischiorectal fossa. No fluid collection or abscess. 2. Bilateral lower lobe pneumonia. 3. Esophagogastric tube at the gastroesophageal junction. Tube should be advanced into the stomach. Signer Name: Ignacio Myers MD Signed: 10/26/2020 6:00 PM Workstation Name: [id number] - Medical Decision Making Differential diagnosis, including but not limited to: Sepsis, bacteremia, pneumonia, urinary tract infection, infected sacral wound, obstruction, intracranial bleed Assessment and plan: 75-year-old gentleman, presenting with fever to 103 degrees, tachypnea, tachycardia, altered mental status, inability to protect airway, dry mucous membranes, and marked tachypnea. Patient does not arrive with advanced directive or goals of care. Nursing team contacted snf, they called 8 times, and nobody answered. Therefore, patient will be resuscitated maximally. Patient is emergently administratively consented by myself for aggressive sepsis resuscitation and treatment, given that he does not arrive with advanced directives, goals of care, or family member or medical decision maker. He was hypoxic and acutely encephalopathic, and therefore required emergent intubation. He was intubated without need for paralysis, or induction agent. He was hypotensive in the field, had very poor peripheral IV access here in the emergency room, and also developed hypotension here in the emergency room. He is therefore emergently administratively consented by myself for sterile central line placement. A left-sided internal jugular central line was placed by myself using maximum barrier precautions and sterile technique, using real-time ultrasound guidance, which has confirmed appropriate central line placement. Postprocedure x-ray reviewed and appreciated, and I advanced the line appropriately. OG tube position is reviewed and appreciated on x-ray the chest, nursing team to advance OG tube. Laboratory studies pending, leukocytosis and lactic acidosis likely secondary to septic picture. On examination, patient has an obvious purulence and infected sacral wound, will discuss with general surgery on-call. CT scan of the brain, chest, abdomen, pelvis will be obtained to evaluate for further septic sources. I have contacted our shelter advocate on-call, Dr. Monk, and have discussed the patient's presentation thus far, he agrees with placement into the intensive care unit. Fluids, broad-spectrum antibiotics, norepinephrine will be ordered. Fentanyl be ordered as needed pain. Overall prognosis is extremely poor. This patient may benefit from a palliative care/hospice evaluation. However, I will defer to the inpatient team to further discuss this Critical Care Time: Yes Critical care time in (mins) excluding proc time.: 65 Critical care attestation.: If time is entered above; I have spent that time in minutes in the direct care of this critically ill patient, excluding procedure time. ED Disposition Clinical Impression: Septic shock, Acute respiratory failure, Acute encephalopathy, Wound infection, Renal insufficiency, Metabolic acidosis, Lactic acidosis Disposition: 09 OP ADMIT IP TO THIS HOSP Is pt being admited?: Yes Does the pt Need Aspirin: No Condition: Critical
[2020-10-26 17:34] LABS: ABG Base Excess -10.4 mmol/L (-2.0-3.0); ABG HCO3 16.4 mmol/L (20.0-26.0); ABG Methemoglobin 0.8 % (0.0-1.5); ABG Oxygen Saturation 99.5 % (95.0-99.0); ABG PCO2 39.5 mm Hg; ABG PH 7.235 pH Units (7.350-7.450)
[2020-10-26 17:44] LABS: Hematocrit 30.3 % (35.5-45.6); Hemoglobin 9.6 gm/dl (11.8-15.2); Mean Corpuscular HGB Conc 32 % (32-34); Mean Corpuscular Volume 98 fl (84-94); Platelet Count 521 K/mm3 (140-440); Red Cell Distribution Width 17.4 % (13.2-15.2)
[2020-10-26] MEDS: NORepinephrine/NS 4 MG-250 ML 4 MG/250 ML BAG IV SCH (17:49)
--- NOTE | 2020-10-26 17:53 | XRay Report ---
CHEST 1 VIEW 10/26/2020 5:26 PM INDICATION / CLINICAL INFORMATION: ETT placement. COMPARISON: 08/15/20 FINDINGS: SUPPORT DEVICES: Endotracheal tube is present 5.6 cm above the lina. Esophagogastric tube tip is at the gastroesophageal junction with the sidehole in the distal esophagus. Left subclavian central roma e has pulled back slightly into the distal jugular vein. HEART / MEDIASTINUM: Stable. LUNGS / PLEURA: Chronic appearing streaky bibasilar densities. No pneumothorax. ADDITIONAL FINDINGS: No significant additional findings. IMPRESSION: 1. Endotracheal tube in expected position. 2. Esophagogastric tube in the distal esophagus. The tube should be advanced 10 cm for optimal positi oning. 3. Left jugular central line has pulled back into the distal jugular vein. Signer Name: Ignacio Myers MD Signed: 10/26/2020 5:49 PM Workstation Name: [id number]
[2020-10-26 17:58] LABS: ABG PO2 312.4 mm Hg (80.0-90.0)
[2020-10-26] MEDS ORDERED: VANCOMYCIN 1,750 MG in SODIUM CHLORIDE 0.9% 500 ML 500 ML IV ONE (18:00)
[2020-10-26] MEDS ORDERED: VANCOMYCIN PHARMACY TO DOSE IV SCH ×2 (18:00→23:00)
[2020-10-26 18:03] LABS: Albumin 1.7 g/dL (3.9-5); Calcium 8.7 mg/dL (8.4-10.2)
[2020-10-26 18:28] LABS: Chol/HDL Ratio 5.11 %
--- NOTE | 2020-10-26 18:36 | Cat Scan Report ---
NONENHANCED CT SCAN OF THE HEAD: INDICATION / CLINICAL INFORMATION: 75 years Male; acute ams. TECHNIQUE: Routine CT head without contrast. All CT scans at this location are performed using CT dos e reduction for ALARA by means of automated exposure control. COMPARISON: CT scan of the head from 01/12/2019 FINDINGS: BRAIN / INTRACRANIAL CONTENTS: No acute hemorrhage, mass effect, midline shift, hydrocephalus, or acu te, large territorial infarct. Change in the left frontal lobe encephalomalacia with dystrophic calci fication low-attenuation periventricular white matter in the frontal region due to chronic small vess el disease CRANIOCERVICAL JUNCTION: No significant abnormality. ORBITS: No significant abnormality of visualized orbits. SINUSES / MASTOIDS: No significant abnormality of the visualized paranasal sinuses or mastoid air charlie ls. ADDITIONAL FINDINGS: None. IMPRESSION: No focal mass, hemorrhage, hydrocephalus, or acute, large territorial infarct. CT findings remain un changed since 01/12/2019 Signer Name: Rakan Delacruz MD Signed: 10/26/2020 6:32 PM Workstation Name: [id number]
[2020-10-26 18:43] LABS: Band Neutrophils # (Manual) 1.2 K/mm3; RBC Morphology Normal; Total Cells Counted 100
[2020-10-26] MEDS: fentaNYL DRIP Premix 2,000 MCG/100 ML BAG IV SCH (18:49)
--- NOTE | 2020-10-26 19:04 | Cat Scan Report ---
CT CHEST, ABDOMEN, AND PELVIS WITHOUT CONTRAST INDICATION / CLINICAL INFORMATION: Infected sacral wound, sepsis, respiratory failure. TECHNIQUE: Axial CT images were obtained through the chest, abdomen, and pelvis without contrast. All CT scans at this location are performed using CT dose reduction for ALARA by means of automated expo sure control. COMPARISON: None available. FINDINGS: HEART: No significant abnormality. CORONARY ARTERY CALCIFICATION: Moderate. THORACIC AORTA: No significant abnormality. MEDIASTINUM / RACHEL: No significant abnormality. PLEURA: No pleural effusion. No pneumothorax. LUNGS: Bilateral lower lobe airspace disease characteristic of pneumonia. ADDITIONAL CHEST FINDINGS: Endotracheal tube in expected position. Esophagogastric tube at the gastro esophageal junction. LIVER: No significant abnormality. GALLBLADDER: No significant abnormality. BILE DUCTS: No significant abnormality. PANCREAS: No significant abnormality. SPLEEN: No significant abnormality. ADRENALS: No significant abnormality. RIGHT KIDNEY / URETER: No significant abnormality. LEFT KIDNEY / URETER: No significant abnormality. STOMACH and SMALL BOWEL: No dilated small bowel. COLON: No significant abnormality. APPENDIX: No significant abnormality. PERITONEUM: No free fluid. No free air. No fluid collection. LYMPH NODES: No significant adenopathy. AORTA / ARTERIES: Mild atherosclerotic calcification without acute abnormality. IVC / VEINS: No significant abnormality. URINARY BLADDER: Contracted around only catheter. REPRODUCTIVE ORGANS: No significant abnormality. ADDITIONAL FINDINGS: Sacral decubitus ulcer over the posterior aspect of the sacrum extending to bone . There is erosion of the coccyx. There is moderate subcutaneous soft tissue gas around the distal sa leo extending into the left ischiorectal fossa, left buttock, and back soft tissues. SKELETAL SYSTEM: No additional acute osseous abnormality. IMPRESSION: 1. Sacral decubitus ulcer with erosion of the coccyx and moderate soft tissue gas extending into the left ischiorectal fossa. No fluid collection or abscess. 2. Bilateral lower lobe pneumonia. 3. Esophagogastric tube at the gastroesophageal junction. Tube should be advanced into the stomach. Signer Name: Ignacio Myers MD Signed: 10/26/2020 7:00 PM Workstation Name: [id number]
--- NOTE | 2020-10-26 22:20 | History and Physical Report ---
History of Present Illness Date of examination: 10/26/20 Date of admission: 10/26/20 18:32 Chief complaint: Altered sensorium and increased shortness of breath History of present illness: 75-year-old -[place] male who is a care home resident with history of seizure disorder hypertension depression and hyperlipidemia and also hypoglycemia and dysphagia encephalopathy in the past brought in by EMS for increasing shortness of breath and altered sensorium. Emergency room try to contact the care home for further details but could not get in touch with the care home on arrival in the emergency room patient was increasingly tachypneic dry mucous membranes and hypoxic because of which patient was intubated by the ER physician. Patient was also hypotensive at the time of admission and found to be febrile with 103 degrees temperature. Patient also has a infected sacral wound. IV central line and IV axis was placed patient was put on Levophed and broad-spectrum antibiotics. - Past Medical History Previous Medical History?: Yes --CVA: Yes --Seizures: Yes --Psychiatric Treatment: Yes (Depression, PTSD) --Additional medical history: Failure to thrive, chronic venous insufficiency - Social History Smoking Status: Unknown if ever smoked - Family history unavailable Surgical history Unavailable Review of Systems ROS: Stated complaint: AMS Other details as noted in HPI Comment: Unobtainable due to pts medical conditions Medications and Allergies Allergies Allergy/AdvReac Type Severity Reaction Status Date / Time No Known Allergies Allergy Verified 01/10/19 02:20 Home Medications Medication Instructions Recorded Confirmed Last Taken Type Folic Acid [Folvite] 1 mg PO QDAY 01/10/19 08/14/20 Unknown History Primidone [Mysoline] 250 mg PO TID 01/10/19 08/14/20 Unknown History carBAMazepine [Carbamazepine] 200 mg PO TID 01/10/19 08/14/20 Unknown History Aspirin [Aspirin BABY CHEW TAB] 81 mg PO QDAY 08/15/20 08/15/20 Unknown History AtorvaSTATin [Lipitor] 40 mg PO QHS 08/15/20 08/15/20 Unknown History Citalopram Hydrobromide 20 mg PO QDAY 08/15/20 08/15/20 Unknown History [Citalopram HBr] Ergocalciferol [Vitamin D2] 1 cap PO QWEEK 08/15/20 08/15/20 Unknown History Folic Acid [Folvite] 1 mg PO QDAY 08/15/20 08/15/20 Unknown History Mirtazapine 7.5 mg PO QHS 08/15/20 08/15/20 Unknown History guaiFENesin ER [Mucinex ER] 600 mg PO Q12H 08/15/20 08/15/20 Unknown History Midodrine [Proamatine] 5 mg PO 0800,1200,1600 #90 tablet 09/02/20 Unknown Rx oxyCODONE /ACETAMINOPHEN [Percocet 1 tab PO Q6H PRN #14 tablet 09/02/20 Unknown Rx 5/325 mg] Active Meds: Active Medications Fentanyl (Fentanyl 100 Mcg/2 Ml Inj) 50 mcg IV Q10MIN PRN PRN Reason: ANALGESIA Hydrophilic Ointment (Lip Therapy Vaseline) 1 applic TP Q2HR PRN PRN Reason: Dry Lips Norepinephrine (Levophed Drip 4 Mg/Ns 250 Ml) 4 mg in 250 mls @ 7.5 mls/hr IV TITR MARSHALL; Protocol Last Titration: 10/26/20 20:45 Dose: 6 mcg/min, 22.5 mls/hr Documented by: Fentanyl Citrate (Fentanyl Drip Premix) 2,000 mcg in 100 mls @ 4.165 mls/hr IV TITR MARSHALL; Protocol Last Titration: 10/26/20 18:59 Dose: 2 mcg/kg/hr, 8.33 mls/hr Documented by: Multi-Ingred Cream/Lotion/Oil/Oint (Mineral Oil/Petrolatum, White Ophth Oint 3.5 Gm) 1 applic OU Q4HR PRN PRN Reason: Dry Eye(s) Sodium Chloride (Sodium Chloride 0.9% 500 Ml Ivpb) 5 ml IV DIRECT PRN PRN Reason: ARTERIAL TUG MASTER Exam - Physical Exam Narrative exam: Patient is intubated - Constitutional Vitals: Temp Pulse Resp BP Pulse Ox 98.1 F 112 H 21 110/66 95 10/26/20 19:38 10/26/20 21:05 10/26/20 21:05 10/26/20 21:05 10/26/20 21:05 General appearance: Present: no acute distress, severe distress, well-nourished - EENT Eyes: Present: PERRL ENT: hearing intact, clear oral mucosa - Neck Neck: Present: supple, normal ROM - Respiratory Respiratory effort: normal Respiratory: bilateral: CTA - Cardiovascular Heart rate: 78 Rhythm: regular Heart Sounds: Present: S1 & S2. Absent: rub, click - Extremities Extremities: pulses symmetrical, No edema Peripheral Pulses: within normal limits - Abdominal General gastrointestinal: Present: soft, non-tender, non-distended, normal bowel sounds Male genitourinary: Present: normal - Integumentary Integumentary: Present: clear, warm, dry - Musculoskeletal Musculoskeletal: strength equal bilaterally, generalized weakness - Psychiatric Psychiatric: other (Intubated) - Neurologic Neurologic: other (Intubated) HEART Score - HEART Score History: Highly suspicious EKG: Non-specific Age: > 65 Risk factors: > 3 risk factors or hx of atherosclerotic disease Troponin: Troponin T 0.062 ng/mL (0.00-0.029) H 10/26/20 17:25 Troponin: < normal limit HEART Score: 7 - Critical Actions Critical Actions: 4-6 pts:12-16.6% risk of adverse cardiac event. Should be admitted Results - Labs CBC & Chem 7: 10/27/20 03:30 10/27/20 04:00 Labs: Laboratory Last Values WBC 23.3 K/mm3 (4.5-11.0) H 10/26/20 17:25 RBC 3.10 M/mm3 (3.65-5.03) L 10/26/20 17:25 Hgb 9.6 gm/dl (11.8-15.2) L 10/26/20 17:25 Hct 30.3 % (35.5-45.6) L 10/26/20 17:25 MCV 98 fl (84-94) H 10/26/20 17:25 MCH 31 pg (28-32) 10/26/20 17:25 MCHC 32 % (32-34) 10/26/20 17:25 RDW 17.4 % (13.2-15.2) H 10/26/20 17:25 Plt Count 521 K/mm3 (140-440) H 10/26/20 17:25 Add Manual Diff Complete 10/26/20 17:25 Total Counted 100 10/26/20 17:25 Seg Neuts % (Manual) 78.0 % (40.0-70.0) H 10/26/20 17:25 Band Neutrophils % 5.0 % 10/26/20 17:25 Lymphocytes % (Manual) 11.0 % (13.4-35.0) L 10/26/20 17:25 Monocytes % (Manual) 6.0 % (0.0-7.3) 10/26/20 17:25 Nucleated RBC % Not Reportable 10/26/20 17:25 Seg Neutrophils # Man 18.2 K/mm3 (1.8-7.7) H 10/26/20 17:25 Band Neutrophils # 1.2 K/mm3 10/26/20 17:25 Lymphocytes # (Manual) 2.6 K/mm3 (1.2-5.4) 10/26/20 17:25 Abs React Lymphs (Man) 0.0 K/mm3 10/26/20 17:25 Monocytes # (Manual) 1.4 K/mm3 (0.0-0.8) H 10/26/20 17:25 Eosinophils # (Manual) 0.0 K/mm3 (0.0-0.4) 10/26/20 17:25 Basophils # (Manual) 0.0 K/mm3 (0.0-0.1) 10/26/20 17:25 Metamyelocytes # 0.0 K/mm3 10/26/20 17:25 Myelocytes # 0.0 K/mm3 10/26/20 17:25 Promyelocytes # 0.0 K/mm3 10/26/20 17:25 Blast Cells # 0.0 K/mm3 10/26/20 17:25 WBC Morphology Not Reportable 10/26/20 17:25 Hypersegmented Neuts Not Reportable 10/26/20 17:25 Hyposegmented Neuts Not Reportable 10/26/20 17:25 Hypogranular Neuts Not Reportable 10/26/20 17:25 Smudge Cells Not Reportable 10/26/20 17:25 Toxic Granulation Not Reportable 10/26/20 17:25 Toxic Vacuolation Not Reportable 10/26/20 17:25 Dohle Bodies Not Reportable 10/26/20 17:25 Pelger-Huet Anomaly Not Reportable 10/26/20 17:25 Kassi Rods Not Reportable 10/26/20 17:25 Platelet Estimate Not Reportable 10/26/20 17:25 Clumped Platelets Not Reportable 10/26/20 17:25 Plt Clumps, EDTA Not Reportable 10/26/20 17:25 Large Platelets Not Reportable 10/26/20 17:25 Giant Platelets Not Reportable 10/26/20 17:25 Platelet Satelliting Not Reportable 10/26/20 17:25 Plt Morphology Comment Not Reportable 10/26/20 17:25 RBC Morphology Normal 10/26/20 17:25 Dimorphic RBCs Not Reportable 10/26/20 17:25 Polychromasia Not Reportable 10/26/20 17:25 Hypochromasia Not Reportable 10/26/20 17:25 Poikilocytosis Not Reportable 10/26/20 17:25 Anisocytosis Not Reportable 10/26/20 17:25 Microcytosis Not Reportable 10/26/20 17:25 Macrocytosis Not Reportable 10/26/20 17:25 Spherocytes Not Reportable 10/26/20 17:25 Pappenheimer Bodies Not Reportable 10/26/20 17:25 Sickle Cells Not Reportable 10/26/20 17:25 Target Cells Not Reportable 10/26/20 17:25 Tear Drop Cells Not Reportable 10/26/20 17:25 Ovalocytes Not Reportable 10/26/20 17:25 Helmet Cells Not Reportable 10/26/20 17:25 [place] Bodies Not Reportable 10/26/20 17:25 [place] Rings Not Reportable 10/26/20 17:25 [place] Cells Not Reportable 10/26/20 17:25 Bite Cells Not Reportable 10/26/20 17:25 Crenated Cell Not Reportable 10/26/20 17:25 Elliptocytes Not Reportable 10/26/20 17:25 Acanthocytes (Spur) Not Reportable 10/26/20 17:25 Rouleaux Not Reportable 10/26/20 17:25 Hemoglobin C Crystals Not Reportable 10/26/20 17:25 Schistocytes Not Reportable 10/26/20 17:25 Malaria parasites Not Reportable 10/26/20 17:25 Richard Bodies Not Reportable 10/26/20 17:25 Hem Pathologist Commnt No 10/26/20 17:25 APTT 27.9 Sec. (24.2-36.6) 10/26/20 17:25 ABG pH 7.235 pH Units (7.350-7.450) L 10/26/20 17:30 ABG pCO2 39.5 mm Hg 10/26/20 17:30 ABG pO2 312.4 mm Hg (80.0-90.0) H 10/26/20 17:30 ABG HCO3 16.4 mmol/L (20.0-26.0) L 10/26/20 17:30 ABG O2 Saturation 99.5 % (95.0-99.0) H 10/26/20 17:30 ABG O2 Content 15.9 (0.0-44) 10/26/20 17:30 ABG Base Excess -10.4 mmol/L (-2.0-3.0) L 10/26/20 17:30 ABG Hemoglobin 11.0 gm/dl (14.0-18.0) L 10/26/20 17:30 ABG Carboxyhemoglobin 1.1 % (0.0-5.0) 10/26/20 17:30 ABG Methemoglobin 0.8 % (0.0-1.5) 10/26/20 17:30 Oxyhemoglobin 97.7 % (95.0-99.0) 10/26/20 17:30 FiO2 100 % 10/26/20 17:30 Sodium 148 mmol/L (137-145) H 10/26/20 17:25 Potassium 4.9 mmol/L (3.6-5.0) 10/26/20 17:25 Chloride 109.3 mmol/L (98-107) H 10/26/20 17:25 Carbon Dioxide 19 mmol/L (22-30) L 10/26/20 17:25 Anion Gap 25 mmol/L 10/26/20 17:25 BUN 57 mg/dL (9-20) H 10/26/20 17:25 Creatinine 1.5 mg/dL (0.8-1.3) H 10/26/20 17:25 Estimated GFR 55 ml/min 10/26/20 17:25 BUN/Creatinine Ratio 38 % 10/26/20 17:25 Glucose 151 mg/dL (75-100) H 10/26/20 17:25 Lactic Acid 7.70 mmol/L (0.7-2.0) H* 10/26/20 20:11 Calcium 8.7 mg/dL (8.4-10.2) 10/26/20 17:25 Magnesium 1.90 mg/dL (1.7-2.3) 10/26/20 17:28 Total Bilirubin 0.30 mg/dL (0.1-1.2) 10/26/20 17:25 AST 12 units/L (5-40) 10/26/20 17:25 ALT 7 units/L (7-56) 10/26/20 17:25 Alkaline Phosphatase 103 units/L (35-129) 10/26/20 17:25 Total Creatine Kinase 31 units/L (55-170) L 10/26/20 17:28 Troponin T 0.062 ng/mL (0.00-0.029) H 10/26/20 17:25 Total Protein 7.5 g/dL (6.3-8.2) 10/26/20 17:25 Albumin 1.7 g/dL (3.9-5) L 10/26/20 17:25 Albumin/Globulin Ratio 0.3 % 10/26/20 17:25 Triglycerides 190 mg/dL (2-149) H 10/26/20 17:25 Cholesterol 92 mg/dL (50-199) 10/26/20 17:25 LDL Cholesterol Direct 33 mg/dL (50-130) L 10/26/20 17:25 HDL Cholesterol 18 mg/dL (40-59) L 10/26/20 17:25 Cholesterol/HDL Ratio 5.11 % 10/26/20 17:25 TSH 1.490 mlU/mL (0.270-4.200) 10/26/20 17:28 Salicylates < 0.3 mg/dL (2.8-20.0) L 10/26/20 17:28 Acetaminophen 5.0 ug/mL (10.0-30.0) L 10/26/20 17:28 Microbiology: Microbiology 10/26/20 Unknown Peripheral/Venous Blood Culture - Preliminary Culture in Progress 10/26/20 Unknown Peripheral/Venous Blood Culture - Preliminary Culture in Progress - Imaging and Cardiology EKG: report reviewed Chest x-ray: report reviewed Imaging and Cardiology: Abdominal CT Sacral decubitus ulcer with erosion of the coccyx and moderate soft tissue gas extending into the left ischio rectal fossa. No fluid collection or abscess. Bilateral lower lobe pneumonia. Esophagogastric tube in the gastroesophageal junction tube should be advanced into the stomach. Chest CT Circulatory is also bilateral lower lobe pneumonia Chest x-ray endotracheal tube in position Head CT No focal mass hemorrhage hydrocephalus or acute large infarct territorial infarct Assessment and Plan Assessment and plan: Critical care statement The high probability OF a clinically significant sudden or life-threatening deterioration of the cardiorespiratory system and endocrine system required my full and direct attention, intervention and postoperative management. The aggregate critical care time was 40 minutes. The time is in addition to time spent performing reported procedures but includes the followin: Data review and interpretation 2: Patient assessment and monitoring of vital signs 3: Documentation 4:: Medication orders and management Advance Directives: Yes (Full code) VTE prophylaxis?: Chemical Plan of care discussed with patient/family: Yes - Patient Problems (1) Acute metabolic encephalopathy Current Visit: Yes Status: Acute Plan to address problem: Multifactorial Secondary to sepsis and hypoxia Broad-spectrum IV antibiotics Vent support (2) Acute respiratory failure with hypoxia Current Visit: Yes Status: Acute Plan to address problem: Patient intubated Vent management Paper Rewinder/pulmonary consult Broad-spectrum IV antibiotics cefepime and IV vancomycin (3) Sacral decubitus ulcer, stage IV Current Visit: Yes Status: Acute Plan to address problem: Surgery consult requested for possible debridement (4) Bilateral pneumonia Current Visit: Yes Status: Acute Plan to address problem: IV cefepime and vancomycin Coronavirus to be ruled out (5) Person under investigation for COVID-19 Current Visit: Yes Status: Acute Plan to address problem: Coronavirus PCR to be ruled out (6) Elevated lactic acid level Current Visit: Yes Status: Acute Plan to address problem: Secondary to sepsis (7) FAZAL (acute kidney injury) Current Visit: Yes Status: Acute Plan to address problem: IV fluids for now (8) Severe malnutrition Current Visit: Yes Status: Acute Plan to address problem: Dietitian consult for malnutrition and tube feedings (9) Urinary tract infection Current Visit: Yes Status: Acute Qualifiers: Urinary tract infection type: acute cystitis Plan to address problem: Patient on cefepime and vancomycin Blood cultures and urine cultures are pending (10) DVT prophylaxis Current Visit: Yes Status: Acute Plan to address problem: On heparin and GI prophylaxis
[2020-10-26] MEDS ORDERED: MORPHINE 2 MG/1 ML INJ IV PRN (22:22)
[2020-10-26] MEDS ORDERED: ONDANSETRON 4 MG/2 ML INJ IV PRN (22:22)
[2020-10-26] MEDS ORDERED: HYDROmorphone 1 MG/1 ML INJ IV PRN (22:22)
[2020-10-26] MEDS ORDERED: FAMOTIDINE 20 MG/2 ML INJ IV SCH (23:00)
[2020-10-26] MEDS ORDERED: CEFEPIME/NS 2 GM/100 ML 2 GM/100 ML BAG IV SCH (23:00)
[2020-10-27] MEDS: FAMOTIDINE 20 MG/2 ML INJ IV SCH ×2 (00:31→09:07)
[2020-10-27] MEDS: SODIUM CHLORIDE 0.9% 1000 ML 1,000 ML IV SCH ×2 (00:32→08:21)
[2020-10-27] MEDS: HEPARIN 5,000 UNIT/1 ML VIAL SUB-Q SCH ×3 (00:32→22:18)
[2020-10-27] MEDS: NORepinephrine/NS 4 MG-250 ML 4 MG/250 ML BAG IV SCH ×4 (03:30→21:56)
[2020-10-27 03:46] LABS: Hematocrit 30.6 % (35.5-45.6); Hemoglobin 9.6 gm/dl (11.8-15.2); Mean Corpuscular HGB Conc 31 % (32-34); Mean Corpuscular Volume 99 fl (84-94); Platelet Count 377 K/mm3 (140-440); Red Cell Distribution Width 16.9 % (13.2-15.2)
[2020-10-27 04:04] LABS: Albumin 1.3 g/dL (3.9-5); Calcium 7.9 mg/dL (8.4-10.2)
[2020-10-27 04:25] LABS: Bilirubin,Urine NEG (Negative); Blood,Urine SM (Negative); Color,Urine Yellow (Yellow); Mucus,Urine 3+ /HPF; Urobilinogen,Urine < 2.0 mg/dL (<2.0)
[2020-10-27 04:26] LABS: Protein,Urine >500 mg/dL (Negative); WBC,Urine > 182.0 /HPF (0.0-6.0)
[2020-10-27] MEDS: CEFEPIME/NS 2 GM/100 ML 2 GM/100 ML BAG IV SCH ×3 (04:30→17:50)
--- NOTE | 2020-10-27 04:35 | XRay Report ---
CHEST 1 VIEW INDICATION: follow up respiratory failure COMPARISON: 10/26/2020 FINDINGS: Support devices: Unchanged. Heart: Normal and unchanged Lungs/Pleura: Diffuse interstitial disease, unchanged from numerous exams. IMPRESSION: 1. Chronic appearing interstitial lung disease. No acute superimposed disease. Signer Name: Bogdan Cheng MD Signed: 10/27/2020 4:31 AM Workstation Name: [id number]
[2020-10-27 07:12] LABS: Band Neutrophils # (Manual) 3.5 K/mm3; Total Cells Counted 100
[2020-10-27 07:13] LABS: Anisocytosis Few; Hypochromasia Few; Platelet Estimate Consistent w Auto
[2020-10-27] MEDS ORDERED: LACTATED RINGERS 1,000 ML IV ONE ×2 (09:00→15:03)
[2020-10-27] MEDS: LACTATED RINGERS 1,000 ML IV SCH ×6 (10:58→19:04)
[2020-10-27] MEDS: fentaNYL 100 MCG/2 ML INJ IV PRN ×3 (11:34→23:56)
--- NOTE | 2020-10-27 13:23 | Consultation ---
History of Present Illness Consult date: 10/27/20 Requesting physician: MYNOR HUMPHRIES Reason for consult: other (sepsis with acute respiratory failure) History of present illness: 75 y/o male who comes from a nursing facility admitted with sepsis secondary large sacral decub. Patient was intubated for airway protection, had IJ placed and started on fluids and pressors. Currently intubated and not able to provide any history. Past History Past Medical History: other (unable to provide) Past Surgical History: Other (unable to provide) Social history: other (unable to provide) Family history: other (unable to provide) Medications and Allergies Allergies Allergy/AdvReac Type Severity Reaction Status Date / Time No Known Allergies Allergy Verified 01/10/19 02:20 Home Medications Medication Instructions Recorded Confirmed Last Taken Type Folic Acid [Folvite] 1 mg PO QDAY 01/10/19 08/14/20 Unknown History Primidone [Mysoline] 250 mg PO TID 01/10/19 08/14/20 Unknown History carBAMazepine [Carbamazepine] 200 mg PO TID 01/10/19 08/14/20 Unknown History Aspirin [Aspirin BABY CHEW TAB] 81 mg PO QDAY 08/15/20 08/15/20 Unknown History AtorvaSTATin [Lipitor] 40 mg PO QHS 08/15/20 08/15/20 Unknown History Citalopram Hydrobromide 20 mg PO QDAY 08/15/20 08/15/20 Unknown History [Citalopram HBr] Ergocalciferol [Vitamin D2] 1 cap PO QWEEK 08/15/20 08/15/20 Unknown History Folic Acid [Folvite] 1 mg PO QDAY 08/15/20 08/15/20 Unknown History Mirtazapine 7.5 mg PO QHS 08/15/20 08/15/20 Unknown History guaiFENesin ER [Mucinex ER] 600 mg PO Q12H 08/15/20 08/15/20 Unknown History Midodrine [Proamatine] 5 mg PO 0800,1200,1600 #90 tablet 09/02/20 Unknown Rx oxyCODONE /ACETAMINOPHEN [Percocet 1 tab PO Q6H PRN #14 tablet 09/02/20 Unknown Rx 5/325 mg] Active Meds: Active Medications Acetaminophen (Acetaminophen 325 Mg Tab) 650 mg PO Q4H PRN PRN Reason: Pain MILD(1-3)/Fever >100.5/TIERNEY Famotidine (Famotidine 20 Mg/2 Ml Inj) 20 mg IV DAILY [facility] Last Admin: 10/27/20 09:07 Dose: 20 mg Documented by: Fentanyl (Fentanyl 100 Mcg/2 Ml Inj) 50 mcg IV Q10MIN PRN PRN Reason: ANALGESIA Fentanyl (Fentanyl 100 Mcg/2 Ml Inj) 50 mcg IV Q2H PRN PRN Reason: Pain , Severe (7-10) Last Admin: 10/27/20 11:34 Dose: 50 mcg Documented by: Heparin Sodium (Porcine) (Heparin 5,000 Unit/1 Ml Vial) 5,000 unit SUB-Q Q12HR [facility] Last Admin: 10/27/20 09:07 Dose: 5,000 unit Documented by: Hydrophilic Ointment (Lip Therapy Vaseline) 1 applic TP Q2HR PRN PRN Reason: Dry Lips Norepinephrine (Levophed Drip 4 Mg/Ns 250 Ml) 4 mg in 250 mls @ 7.5 mls/hr IV TITR [facility]; Protocol Last Admin: 10/27/20 10:04 Dose: 14 mcg/min, 52.5 mls/hr Documented by: Fentanyl Citrate (Fentanyl Drip Premix) 2,000 mcg in 100 mls @ 4.165 mls/hr IV TITR [facility]; Protocol Last Titration: 10/27/20 08:00 Dose: 0 mcg/kg/hr, 0 mls/hr Documented by: Cefepime HCl (Cefepime/Ns 2 Gm/100 Ml) 2 gm in 100 mls @ 200 mls/hr IV Q12H [facility] ; Protocol Last Admin: 10/27/20 07:18 Dose: Not Given Documented by: Vancomycin HCl 1,250 mg/ (Sodium Chloride) 275 mls @ 166.667 mls/hr IV Q24H [facility] Multi-Ingred Cream/Lotion/Oil/Oint (Mineral Oil/Petrolatum, White Ophth Oint 3.5 Gm) 1 applic OU Q4HR PRN PRN Reason: Dry Eye(s) Ondansetron HCl (Ondansetron 4 Mg/2 Ml Inj) 4 mg IV Q8H PRN PRN Reason: Nausea And Vomiting Sodium Chloride (Sodium Chloride 0.9% 500 Ml Ivpb) 5 ml IV DIRECT PRN 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 Sodium Chloride (Sodium Chloride 0.9% 10 Ml Flush Syringe) 10 ml IV BID [facility] Last Admin: 10/27/20 09:07 Dose: 10 ml Documented by: Sodium Chloride (Sodium Chloride 0.9% 10 Ml Flush Syringe) 10 ml IV PRN PRN PRN Reason: LINE FLUSH Review of Systems ROS unobtainable: due to endotracheal tube, due to mental status Physical Examination Vital signs: Vital Signs Pulse Resp Pulse Ox 128 H 41 H 99 10/26/20 16:36 10/26/20 16:36 10/26/20 16:36 General appearance: comatose Eyes: non-icteric ENT: other (orally intubated and sedated.) Neck: supple Effort: normal Ascultation: Bilateral: clear Percussion: Bilateral: not dull Cardiovascular: regular rate and rhythm Gastrointestinal: normoactive bowel sounds, soft, non-tender Results - Laboratory Findings CBC and BMP: 10/27/20 03:30 10/27/20 04:00 ABG ABG pH 7.218 (7.320-7.450) L 10/27/20 03:25 POC ABG pCO2 40.1 mmHg (32.0-48.0) 10/27/20 03:25 ABG pCO2 39.5 mm Hg 10/26/20 17:30 POC ABG pO2 62.9 mmHg (83-108) L 10/27/20 03:25 ABG pO2 312.4 mm Hg (80.0-90.0) H 10/26/20 17:30 POC ABG HCO3 16.0 10/27/20 03:25 ABG O2 Saturation 87.0 (0-100) 10/27/20 03:25 Abnormal lab findings: Abnormal Labs 10/26/20 10/26/20 10/26/20 17:25 17:25 17:25 WBC 23.3 H RBC 3.10 L Hgb 9.6 L Hct 30.3 L MCV 98 H MCHC RDW 17.4 H Plt Count 521 H Seg Neuts % (Manual) 78.0 H Lymphocytes % (Manual) 11.0 L Seg Neutrophils # Man 18.2 H Monocytes # (Manual) 1.4 H ABG pH POC ABG pO2 ABG pO2 ABG HCO3 ABG O2 Saturation ABG Base Excess ABG Hemoglobin ABG Oxyhemoglobin ABG Potassium ABG Chloride ABG Glucose Carboxyhemoglobin Sodium 148 H Chloride 109.3 H Carbon Dioxide 19 L BUN 57 H Creatinine 1.5 H Glucose 151 H Lactic Acid 9.60 H* Calcium Total Creatine Kinase Troponin T 0.062 H Albumin 1.7 L Triglycerides 190 H LDL Cholesterol Direct 33 L HDL Cholesterol 18 L Arterial Blood Glucose Urine pH Urine WBC (Auto) Salicylates Acetaminophen 10/26/20 10/26/20 10/26/20 17:28 17:28 17:28 WBC RBC Hgb Hct MCV MCHC RDW Plt Count Seg Neuts % (Manual) Lymphocytes % (Manual) Seg Neutrophils # Man Monocytes # (Manual) ABG pH POC ABG pO2 ABG pO2 ABG HCO3 ABG O2 Saturation ABG Base Excess ABG Hemoglobin ABG Oxyhemoglobin ABG Potassium ABG Chloride ABG Glucose Carboxyhemoglobin Sodium Chloride Carbon Dioxide BUN Creatinine Glucose Lactic Acid Calcium Total Creatine Kinase 31 L Troponin T Albumin Triglycerides LDL Cholesterol Direct HDL Cholesterol Arterial Blood Glucose Urine pH Urine WBC (Auto) Salicylates < 0.3 L Acetaminophen 5.0 L 10/26/20 10/26/20 10/26/20 17:30 20:11 22:00 WBC RBC Hgb Hct MCV MCHC RDW Plt Count Seg Neuts % (Manual) Lymphocytes % (Manual) Seg Neutrophils # Man Monocytes # (Manual) ABG pH 7.235 L POC ABG pO2 ABG pO2 312.4 H ABG HCO3 16.4 L ABG O2 Saturation 99.5 H ABG Base Excess -10.4 L ABG Hemoglobin 11.0 L ABG Oxyhemoglobin ABG Potassium ABG Chloride ABG Glucose Carboxyhemoglobin Sodium Chloride Carbon Dioxide BUN Creatinine Glucose Lactic Acid 7.70 H* 6.40 H* Calcium Total Creatine Kinase Troponin T Albumin Triglycerides LDL Cholesterol Direct HDL Cholesterol Arterial Blood Glucose Urine pH Urine WBC (Auto) Salicylates Acetaminophen 10/27/20 10/27/20 10/27/20 03:25 03:30 04:00 WBC 20.3 H RBC 3.10 L Hgb 9.6 L Hct 30.6 L MCV 99 H MCHC 31 L RDW 16.9 H Plt Count Seg Neuts % (Manual) Lymphocytes % (Manual) Seg Neutrophils # Man 11.6 H Monocytes # (Manual) ABG pH 7.218 L POC ABG pO2 62.9 L ABG pO2 ABG HCO3 ABG O2 Saturation ABG Base Excess ABG Hemoglobin 10.6 L ABG Oxyhemoglobin 86.6 L ABG Potassium 4.8 H ABG Chloride 114.0 H ABG Glucose 116 H Carboxyhemoglobin 0.4 L Sodium Chloride 110.2 H Carbon Dioxide 17 L BUN 55 H Creatinine 1.5 H Glucose 109 H Lactic Acid Calcium 7.9 L Total Creatine Kinase Troponin T Albumin 1.3 L Triglycerides LDL Cholesterol Direct HDL Cholesterol Arterial Blood Glucose 116 H Urine pH Urine WBC (Auto) Salicylates Acetaminophen 10/27/20 Unknown WBC RBC Hgb Hct MCV MCHC RDW Plt Count Seg Neuts % (Manual) Lymphocytes % (Manual) Seg Neutrophils # Man Monocytes # (Manual) ABG pH POC ABG pO2 ABG pO2 ABG HCO3 ABG O2 Saturation ABG Base Excess ABG Hemoglobin ABG Oxyhemoglobin ABG Potassium ABG Chloride ABG Glucose Carboxyhemoglobin Sodium Chloride Carbon Dioxide BUN Creatinine Glucose Lactic Acid Calcium Total Creatine Kinase Troponin T Albumin Triglycerides LDL Cholesterol Direct HDL Cholesterol Arterial Blood Glucose Urine pH 8.0 H Urine WBC (Auto) > 182.0 H Salicylates Acetaminophen - Diagnostic Findings Chest x-ray: image reviewed Assessment and Plan 75 y/o male with acute respiratory failure secondary to sepsis from large sacral decub and likely urinary tract infection 1. AGree with broad spec abx therapy 2. Needs aggressive volume resuscitation. Check CVP and if low, bolus until goal of 10-12 3. Wean FiO2 as tolerated for sats >88% 4. Appreciate Surgery evaluation. Unfortunately, we have no next of kin listed as of right now. CM is working on this. 5. PRN pain medication 6. Overall prognosis is guarded to poor. Will need to discuss with family assisted goals especially if multiple surgeries are needed for debridement. CCT 31 minutes.
--- NOTE | 2020-10-27 13:32 | Consultation ---
History of Present Illness - Reason for Consult Consult date: 10/27/20 Sepsis Requesting physician: HALIE PIERCE - History of Present Illness The patient is a 75-year-old male, snf resident with seizure disorder, hypertension, depression, hyperlipidemia, chronic encephalopathy was sent to the hospital with worsening mental status. He was noted to be septic with hypotension, fever. Noted to have an infected, necrotic sacral wound. Patient is septic, on pressors, on broad-spectrum antibiotics. Infectious diseases was consulted for additional evaluation. On vent, limited history. Review of Systems: Limited, patient on vent. Past History Past Medical History: other (unable to provide) Past Surgical History: Other (unable to provide) Social history: other (unable to provide) Family history: other (unable to provide) Medications and Allergies Allergies Allergy/AdvReac Type Severity Reaction Status Date / Time No Known Allergies Allergy Verified 01/10/19 02:20 Home Medications Medication Instructions Recorded Confirmed Last Taken Type Folic Acid [Folvite] 1 mg PO QDAY 01/10/19 08/14/20 Unknown History Primidone [Mysoline] 250 mg PO TID 01/10/19 08/14/20 Unknown History carBAMazepine [Carbamazepine] 200 mg PO TID 01/10/19 08/14/20 Unknown History Aspirin [Aspirin BABY CHEW TAB] 81 mg PO QDAY 08/15/20 08/15/20 Unknown History AtorvaSTATin [Lipitor] 40 mg PO QHS 08/15/20 08/15/20 Unknown History Citalopram Hydrobromide 20 mg PO QDAY 08/15/20 08/15/20 Unknown History [Citalopram HBr] Ergocalciferol [Vitamin D2] 1 cap PO QWEEK 08/15/20 08/15/20 Unknown History Folic Acid [Folvite] 1 mg PO QDAY 08/15/20 08/15/20 Unknown History Mirtazapine 7.5 mg PO QHS 08/15/20 08/15/20 Unknown History guaiFENesin ER [Mucinex ER] 600 mg PO Q12H 08/15/20 08/15/20 Unknown History Midodrine [Proamatine] 5 mg PO 0800,1200,1600 #90 tablet 09/02/20 Unknown Rx oxyCODONE /ACETAMINOPHEN [Percocet 1 tab PO Q6H PRN #14 tablet 09/02/20 Unknown Rx 5/325 mg] Active Meds: Active Medications Acetaminophen (Acetaminophen 325 Mg Tab) 650 mg PO Q4H PRN PRN Reason: Pain MILD(1-3)/Fever >100.5/TIERNEY Famotidine (Famotidine 20 Mg/2 Ml Inj) 20 mg IV DAILY [facility] Last Admin: 10/27/20 09:07 Dose: 20 mg Documented by: Fentanyl (Fentanyl 100 Mcg/2 Ml Inj) 50 mcg IV Q10MIN PRN PRN Reason: ANALGESIA Fentanyl (Fentanyl 100 Mcg/2 Ml Inj) 50 mcg IV Q2H PRN PRN Reason: Pain , Severe (7-10) Last Admin: 10/27/20 11:34 Dose: 50 mcg Documented by: Heparin Sodium (Porcine) (Heparin 5,000 Unit/1 Ml Vial) 5,000 unit SUB-Q Q12HR [facility] Last Admin: 10/27/20 09:07 Dose: 5,000 unit Documented by: Hydrophilic Ointment (Lip Therapy Vaseline) 1 applic TP Q2HR PRN PRN Reason: Dry Lips Norepinephrine (Levophed Drip 4 Mg/Ns 250 Ml) 4 mg in 250 mls @ 7.5 mls/hr IV TITR [facility]; Protocol Last Admin: 10/27/20 10:04 Dose: 14 mcg/min, 52.5 mls/hr Documented by: Fentanyl Citrate (Fentanyl Drip Premix) 2,000 mcg in 100 mls @ 4.165 mls/hr IV TITR [facility]; Protocol Last Titration: 10/27/20 08:00 Dose: 0 mcg/kg/hr, 0 mls/hr Documented by: Cefepime HCl (Cefepime/Ns 2 Gm/100 Ml) 2 gm in 100 mls @ 200 mls/hr IV Q12H [facility]; Protocol Last Admin: 10/27/20 07:18 Dose: Not Given Documented by: Vancomycin HCl 1,250 mg/ (Sodium Chloride) 275 mls @ 166.667 mls/hr IV Q24H [facility] Lactated Ringer's (Lactated Ringers) 1,000 mls @ 999 mls/hr IV Q1H [facility] Stop: 10/27/20 15:29 Multi-Ingred Cream/Lotion/Oil/Oint (Mineral Oil/Petrolatum, White Ophth Oint 3.5 Gm) 1 applic OU Q4HR PRN PRN Reason: Dry Eye(s) Ondansetron HCl (Ondansetron 4 Mg/2 Ml Inj) 4 mg IV Q8H PRN PRN Reason: Nausea And Vomiting Sodium Chloride (Sodium Chloride 0.9% 500 Ml Ivpb) 5 ml IV DIRECT PRN PRN 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 External ears, nose normal Eyes: Conjunctivae/corneas clear. No icterus. No ptosis. Neck: intubated Oral: intubated Cardiovascular: S1, S2 + Respiratory: AE fair bilaterally and equal GI: Soft, bowel sounds + Musculoskeletal: Necrotic sacral decubitus ulcer present Skin: No rash or abscess Hem/Lymphatic: No palpable cervical or supraclavicular nodes. No lymphangitis Psych: no agitation Neurological: sedated, intubated, on the vent, exam limited - Constitutional Vitals: Vital Signs Temp Pulse Resp BP Pulse Ox 99.7 F H 111 H 25 H 101/60 99 10/27/20 04:00 10/27/20 12:00 10/27/20 12:00 10/27/20 12:00 10/27/20 12:00 Temperature -Last 24 Hours Temperature 99.7 F Temperature 97.4 F Temperature 98.9 F Temperature 98.9 F Temperature 98.1 F Temperature 98.8 F Temperature 103 F Results - Labs CBC & Chem 7: 10/27/20 03:30 10/27/20 04:00 Labs: Abnormal lab results 10/26/20 10/26/20 10/26/20 Range/Units 17:25 17:25 17:25 WBC 23.3 H (4.5-11.0) K/mm3 RBC 3.10 L (3.65-5.03) M/mm3 Hgb 9.6 L (11.8-15.2) gm/dl Hct 30.3 L (35.5-45.6) % MCV 98 H (84-94) fl MCHC (32-34) % RDW 17.4 H (13.2-15.2) % Plt Count 521 H (140-440) K/mm3 Seg Neuts % (Manual) 78.0 H (40.0-70.0) % Lymphocytes % (Manual) 11.0 L (13.4-35.0) % Seg Neutrophils # Man 18.2 H (1.8-7.7) K/mm3 Monocytes # (Manual) 1.4 H (0.0-0.8) K/mm3 ABG pH (7.350-7.450) pH Units POC ABG pO2 (83-108) mmHg ABG pO2 (80.0-90.0) mm Hg ABG HCO3 (20.0-26.0) mmol/L ABG O2 Saturation (95.0-99.0) % ABG Base Excess (-2.0-3.0) mmol/L ABG Hemoglobin (14.0-18.0) gm/dl ABG Oxyhemoglobin (94-98) ABG Potassium (3.40-4.50) mmol/L ABG Chloride (98-107) mmol/L ABG Glucose (65-95) mg/dL Carboxyhemoglobin (0.5-1.5) Sodium 148 H (137-145) mmol/L Chloride 109.3 H (98-107) mmol/L Carbon Dioxide 19 L (22-30) mmol/L BUN 57 H (9-20) mg/dL Creatinine 1.5 H (0.8-1.3) mg/dL Glucose 151 H (75-100) mg/dL Lactic Acid 9.60 H* (0.7-2.0) mmol/L Calcium (8.4-10.2) mg/dL Total Creatine Kinase (55-170) units/L Troponin T 0.062 H (0.00-0.029) ng/mL Albumin 1.7 L (3.9-5) g/dL Triglycerides 190 H (2-149) mg/dL LDL Cholesterol Direct 33 L (50-130) mg/dL HDL Cholesterol 18 L (40-59) mg/dL Arterial Blood Glucose (65-95) mg/dL Urine pH (5.0-7.0) Urine WBC (Auto) (0.0-6.0) /HPF Salicylates (2.8-20.0) mg/dL Acetaminophen (10.0-30.0) ug/mL 10/26/20 10/26/20 10/26/20 Range/Units 17:28 17:28 17:28 WBC (4.5-11.0) K/mm3 RBC (3.65-5.03) M/mm3 Hgb (11.8-15.2) gm/dl Hct (35.5-45.6) % MCV (84-94) fl MCHC (32-34) % RDW (13.2-15.2) % Plt Count (140-440) K/mm3 Seg Neuts % (Manual) (40.0-70.0) % Lymphocytes % (Manual) (13.4-35.0) % Seg Neutrophils # Man (1.8-7.7) K/mm3 Monocytes # (Manual) (0.0-0.8) K/mm3 ABG pH (7.350-7.450) pH Units POC ABG pO2 (83-108) mmHg ABG pO2 (80.0-90.0) mm Hg ABG HCO3 (20.0-26.0) mmol/L ABG O2 Saturation (95.0-99.0) % ABG Base Excess (-2.0-3.0) mmol/L ABG Hemoglobin (14.0-18.0) gm/dl ABG Oxyhemoglobin (94-98) ABG Potassium (3.40-4.50) mmol/L ABG Chloride (98-107) mmol/L ABG Glucose (65-95) mg/dL Carboxyhemoglobin (0.5-1.5) Sodium (137-145) mmol/L Chloride (98-107) mmol/L Carbon Dioxide (22-30) mmol/L BUN (9-20) mg/dL Creatinine (0.8-1.3) mg/dL Glucose (75-100) mg/dL Lactic Acid (0.7-2.0) mmol/L Calcium (8.4-10.2) mg/dL Total Creatine Kinase 31 L (55-170) units/L Troponin T (0.00-0.029) ng/mL Albumin (3.9-5) g/dL Triglycerides (2-149) mg/dL LDL Cholesterol Direct (50-130) mg/dL HDL Cholesterol (40-59) mg/dL Arterial Blood Glucose (65-95) mg/dL Urine pH (5.0-7.0) Urine WBC (Auto) (0.0-6.0) /HPF Salicylates < 0.3 L (2.8-20.0) mg/dL Acetaminophen 5.0 L (10.0-30.0) ug/mL 10/26/20 10/26/20 10/26/20 Range/Units 17:30 20:11 22:00 WBC (4.5-11.0) K/mm3 RBC (3.65-5.03) M/mm3 Hgb (11.8-15.2) gm/dl Hct (35.5-45.6) % MCV (84-94) fl MCHC (32-34) % RDW (13.2-15.2) % Plt Count (140-440) K/mm3 Seg Neuts % (Manual) (40.0-70.0) % Lymphocytes % (Manual) (13.4-35.0) % Seg Neutrophils # Man (1.8-7.7) K/mm3 Monocytes # (Manual) (0.0-0.8) K/mm3 ABG pH 7.235 L (7.350-7.450) pH Units POC ABG pO2 (83-108) mmHg ABG pO2 312.4 H (80.0-90.0) mm Hg ABG HCO3 16.4 L (20.0-26.0) mmol/L ABG O2 Saturation 99.5 H (95.0-99.0) % ABG Base Excess -10.4 L (-2.0-3.0) mmol/L ABG Hemoglobin 11.0 L (14.0-18.0) gm/dl ABG Oxyhemoglobin (94-98) ABG Potassium (3.40-4.50) mmol/L ABG Chloride (98-107) mmol/L ABG Glucose (65-95) mg/dL Carboxyhemoglobin (0.5-1.5) Sodium (137-145) mmol/L Chloride (98-107) mmol/L Carbon Dioxide (22-30) mmol/L BUN (9-20) mg/dL Creatinine (0.8-1.3) mg/dL Glucose (75-100) mg/dL Lactic Acid 7.70 H* 6.40 H* (0.7-2.0) mmol/L Calcium (8.4-10.2) mg/dL Total Creatine Kinase (55-170) units/L Troponin T (0.00-0.029) ng/mL Albumin (3.9-5) g/dL Triglycerides (2-149) mg/dL LDL Cholesterol Direct (50-130) mg/dL HDL Cholesterol (40-59) mg/dL Arterial Blood Glucose (65-95) mg/dL Urine pH (5.0-7.0) Urine WBC (Auto) (0.0-6.0) /HPF Salicylates (2.8-20.0) mg/dL Acetaminophen (10.0-30.0) ug/mL 10/27/20 10/27/20 10/27/20 Range/Units 03:25 03:30 04:00 WBC 20.3 H (4.5-11.0) K/mm3 RBC 3.10 L (3.65-5.03) M/mm3 Hgb 9.6 L (11.8-15.2) gm/dl Hct 30.6 L (35.5-45.6) % MCV 99 H (84-94) fl MCHC 31 L (32-34) % RDW 16.9 H (13.2-15.2) % Plt Count (140-440) K/mm3 Seg Neuts % (Manual) (40.0-70.0) % Lymphocytes % (Manual) (13.4-35.0) % Seg Neutrophils # Man 11.6 H (1.8-7.7) K/mm3 Monocytes # (Manual) (0.0-0.8) K/mm3 ABG pH 7.218 L (7.350-7.450) pH Units POC ABG pO2 62.9 L (83-108) mmHg ABG pO2 (80.0-90.0) mm Hg ABG HCO3 (20.0-26.0) mmol/L ABG O2 Saturation (95.0-99.0) % ABG Base Excess (-2.0-3.0) mmol/L ABG Hemoglobin 10.6 L (14.0-18.0) gm/dl ABG Oxyhemoglobin 86.6 L (94-98) ABG Potassium 4.8 H (3.40-4.50) mmol/L ABG Chloride 114.0 H (98-107) mmol/L ABG Glucose 116 H (65-95) mg/dL Carboxyhemoglobin 0.4 L (0.5-1.5) Sodium (137-145) mmol/L Chloride 110.2 H (98-107) mmol/L Carbon Dioxide 17 L (22-30) mmol/L BUN 55 H (9-20) mg/dL Creatinine 1.5 H (0.8-1.3) mg/dL Glucose 109 H (75-100) mg/dL Lactic Acid (0.7-2.0) mmol/L Calcium 7.9 L (8.4-10.2) mg/dL Total Creatine Kinase (55-170) units/L Troponin T (0.00-0.029) ng/mL Albumin 1.3 L (3.9-5) g/dL Triglycerides (2-149) mg/dL LDL Cholesterol Direct (50-130) mg/dL HDL Cholesterol (40-59) mg/dL Arterial Blood Glucose 116 H (65-95) mg/dL Urine pH (5.0-7.0) Urine WBC (Auto) (0.0-6.0) /HPF Salicylates (2.8-20.0) mg/dL Acetaminophen (10.0-30.0) ug/mL 10/27/20 Range/Units Unknown WBC (4.5-11.0) K/mm3 RBC (3.65-5.03) M/mm3 Hgb (11.8-15.2) gm/dl Hct (35.5-45.6) % MCV (84-94) fl MCHC (32-34) % RDW (13.2-15.2) % Plt Count (140-440) K/mm3 Seg Neuts % (Manual) (40.0-70.0) % Lymphocytes % (Manual) (13.4-35.0) % Seg Neutrophils # Man (1.8-7.7) K/mm3 Monocytes # (Manual) (0.0-0.8) K/mm3 ABG pH (7.350-7.450) pH Units POC ABG pO2 (83-108) mmHg ABG pO2 (80.0-90.0) mm Hg ABG HCO3 (20.0-26.0) mmol/L ABG O2 Saturation (95.0-99.0) % ABG Base Excess (-2.0-3.0) mmol/L ABG Hemoglobin (14.0-18.0) gm/dl ABG Oxyhemoglobin (94-98) ABG Potassium (3.40-4.50) mmol/L ABG Chloride (98-107) mmol/L ABG Glucose (65-95) mg/dL Carboxyhemoglobin (0.5-1.5) Sodium (137-145) mmol/L Chloride (98-107) mmol/L Carbon Dioxide (22-30) mmol/L BUN (9-20) mg/dL Creatinine (0.8-1.3) mg/dL Glucose (75-100) mg/dL Lactic Acid (0.7-2.0) mmol/L Calcium (8.4-10.2) mg/dL Total Creatine Kinase (55-170) units/L Troponin T (0.00-0.029) ng/mL Albumin (3.9-5) g/dL Triglycerides (2-149) mg/dL LDL Cholesterol Direct (50-130) mg/dL HDL Cholesterol (40-59) mg/dL Arterial Blood Glucose (65-95) mg/dL Urine pH 8.0 H (5.0-7.0) Urine WBC (Auto) > 182.0 H (0.0-6.0) /HPF Salicylates (2.8-20.0) mg/dL Acetaminophen (10.0-30.0) ug/mL - Imaging and Cardiology CT scan - chest: report reviewed, image reviewed (bibasilar pneumonia) Assessment and Plan Cultures: 10/26/2020 tracheal aspirate culture: Staph aureus 10/26/2020 blood culture: In process A/P: 75-year-old male, snf resident with seizure disorder, hypertension, depression, hyperlipidemia, chronic encephalopathy was sent to the hospital with worsening mental status: #Septic shock: Multifactorial from infected sacral decubitus ulcer, bilateral pneumonia, UTI #Necrotic, infected sacral decubitus ulcer: Likely will need debridement. #UTI: UA with significant pyuria. #Bilateral pneumonia: Noted on CT. Possibly some aspiration. #FAZAL: Renally dose antibiotics. #Acute respiratory failure: on the vent. Recs: -Empiric cefepime, Flagyl and vancomycin -Will need surgical evaluation for debridement of necrotic sacral wound -Follow-up cultures -Overall, poor prognosis given underlying medical comorbidities Stephania Starr MD, FACP [facility] O: [phone] F: [phone]
--- NOTE | 2020-10-27 13:36 | Consultation ---
History of Present Illness Consult date: 10/27/20 Reason for consult: other (sepsis) - History of present illness History of present illness: 75 year old male presented to ED from custodial with fever, AMS and clinically septic. He required intubation, and was started on vaso-pressors. Pt was noted to have a foul smelling draining sacral bed sore. Early scanning was only significant for observation of sacral ulcer with air in the surrounding tissues. He had a fever of 103F and WBC>20k. General surgery was consulted regarding debridement of sacral ulcer. Past History Past Medical History: hyperlipidemia, other (unable to provide) Past Surgical History: Other (unable to provide) Social history: other (unable to provide) Family history: other (unable to provide) Medications and Allergies Allergies Allergy/AdvReac Type Severity Reaction Status Date / Time No Known Allergies Allergy Verified 01/10/19 02:20 Home Medications Medication Instructions Recorded Confirmed Last Taken Type Folic Acid [Folvite] 1 mg PO QDAY 01/10/19 08/14/20 Unknown History Primidone [Mysoline] 250 mg PO TID 01/10/19 08/14/20 Unknown History carBAMazepine [Carbamazepine] 200 mg PO TID 01/10/19 08/14/20 Unknown History Aspirin [Aspirin BABY CHEW TAB] 81 mg PO QDAY 08/15/20 08/15/20 Unknown History AtorvaSTATin [Lipitor] 40 mg PO QHS 08/15/20 08/15/20 Unknown History Citalopram Hydrobromide 20 mg PO QDAY 08/15/20 08/15/20 Unknown History [Citalopram HBr] Ergocalciferol [Vitamin D2] 1 cap PO QWEEK 08/15/20 08/15/20 Unknown History Folic Acid [Folvite] 1 mg PO QDAY 08/15/20 08/15/20 Unknown History Mirtazapine 7.5 mg PO QHS 08/15/20 08/15/20 Unknown History guaiFENesin ER [Mucinex ER] 600 mg PO Q12H 08/15/20 08/15/20 Unknown History Midodrine [Proamatine] 5 mg PO 0800,1200,1600 #90 tablet 09/02/20 Unknown Rx oxyCODONE /ACETAMINOPHEN [Percocet 1 tab PO Q6H PRN #14 tablet 09/02/20 Unknown Rx 5/325 mg] Active Meds: Active Medications Acetaminophen (Acetaminophen 325 Mg Tab) 650 mg PO Q4H PRN PRN Reason: Pain MILD(1-3)/Fever >100.5/TIERNEY Famotidine (Famotidine 20 Mg/2 Ml Inj) 20 mg IV DAILY [facility] Last Admin: 10/27/20 09:07 Dose: 20 mg Documented by: Fentanyl (Fentanyl 100 Mcg/2 Ml Inj) 50 mcg IV Q10MIN PRN PRN Reason: ANALGESIA Fentanyl (Fentanyl 100 Mcg/2 Ml Inj) 50 mcg IV Q2H PRN PRN Reason: Pain , Severe (7-10) Last Admin: 10/27/20 11:34 Dose: 50 mcg Documented by: Heparin Sodium (Porcine) (Heparin 5,000 Unit/1 Ml Vial) 5,000 unit SUB-Q Q12HR [facility]SHALL Last Admin: 10/27/20 09:07 Dose: 5,000 unit Documented by: Hydrophilic Ointment (Lip Therapy Vaseline) 1 applic TP Q2HR PRN PRN Reason: Dry Lips Norepinephrine (Levophed Drip 4 Mg/Ns 250 Ml) 4 mg in 250 mls @ 7.5 mls/hr IV TITR MARSAHLL; Protocol Last Admin: 10/27/20 10:04 Dose: 14 mcg/min, 52.5 mls/hr Documented by: Fentanyl Citrate (Fentanyl Drip Premix) 2,000 mcg in 100 mls @ 4.165 mls/hr IV TITR MARSHALL; Protocol Last Titration: 10/27/20 08:00 Dose: 0 mcg/kg/hr, 0 mls/hr Documented by: Cefepime HCl (Cefepime/Ns 2 Gm/100 Ml) 2 gm in 100 mls @ 200 mls/hr IV Q12H MARSHALL; Protocol Last Admin: 10/27/20 07:18 Dose: Not Given Documented by: Vancomycin HCl 1,250 mg/ (Sodium Chloride) 275 mls @ 166.667 mls/hr IV Q24H [facility]SHALL Lactated Ringer's (Lactated Ringers) 1,000 mls @ 999 mls/hr IV Q1H MARSHALL Stop: 10/27/20 15:29 Multi-Ingred Cream/Lotion/Oil/Oint (Mineral Oil/Petrolatum, White Ophth Oint 3.5 Gm) 1 applic OU Q4HR PRN PRN Reason: Dry Eye(s) Ondansetron HCl (Ondansetron 4 Mg/2 Ml Inj) 4 mg IV Q8H PRN PRN Reason: Nausea And Vomiting Sodium Chloride (Sodium Chloride 0.9% 500 Ml Ivpb) 5 ml IV DIRECT PRN PRN Reason: [employer] DIRECT[employer] Sodium Chloride (Sodium Chloride 0.9% 10 Ml Flush Syringe) 10 ml IV BID MARSHALL Last Admin: 10/27/20 09:07 Dose: 10 ml Documented by: Sodium Chloride (Sodium Chloride 0.9% 10 Ml Flush Syringe) 10 ml IV PRN PRN PRN Reason: LINE FLUSH Review of Systems ROS unobtainable: due to endotracheal tube Exam Vital Signs Pulse Resp Pulse Ox 128 H 41 H 99 10/26/20 16:36 10/26/20 16:36 10/26/20 16:36 - General physical appearance Positive: no distress, no pain, cathetic, chronically ill - Respiratory Positive: normal expansion, normal respiratory effort - Extremities Extremities: abnormal (bilateral foot and ankle swelling with dry hypertrophied skin. B/L heel ulcerations) - Abdomen Abdomen: Present: soft. Absent: tender - Integumentary other (Pt has a ~5x5cm skin defect over the sacrum with underlying foul smelling fibrinous exudate and drainage. significant undermining of skin circumfrentially.) Results - Labs 10/27/20 03:30 10/27/20 04:00 Abnormal lab results 10/26/20 10/26/20 10/26/20 Range/Units 17:25 17:25 17:25 WBC 23.3 H (4.5-11.0) K/mm3 RBC 3.10 L (3.65-5.03) M/mm3 Hgb 9.6 L (11.8-15.2) gm/dl Hct 30.3 L (35.5-45.6) % MCV 98 H (84-94) fl MCHC (32-34) % RDW 17.4 H (13.2-15.2) % Plt Count 521 H (140-440) K/mm3 Seg Neuts % (Manual) 78.0 H (40.0-70.0) % Lymphocytes % (Manual) 11.0 L (13.4-35.0) % Seg Neutrophils # Man 18.2 H (1.8-7.7) K/mm3 Monocytes # (Manual) 1.4 H (0.0-0.8) K/mm3 ABG pH (7.350-7.450) pH Units POC ABG pO2 (83-108) mmHg ABG pO2 (80.0-90.0) mm Hg ABG HCO3 (20.0-26.0) mmol/L ABG O2 Saturation (95.0-99.0) % ABG Base Excess (-2.0-3.0) mmol/L ABG Hemoglobin (14.0-18.0) gm/dl ABG Oxyhemoglobin (94-98) ABG Potassium (3.40-4.50) mmol/L ABG Chloride (98-107) mmol/L ABG Glucose (65-95) mg/dL Carboxyhemoglobin (0.5-1.5) Sodium 148 H (137-145) mmol/L Chloride 109.3 H (98-107) mmol/L Carbon Dioxide 19 L (22-30) mmol/L BUN 57 H (9-20) mg/dL Creatinine 1.5 H (0.8-1.3) mg/dL Glucose 151 H (75-100) mg/dL Lactic Acid 9.60 H* (0.7-2.0) mmol/L Calcium (8.4-10.2) mg/dL Total Creatine Kinase (55-170) units/L Troponin T 0.062 H (0.00-0.029) ng/mL Albumin 1.7 L (3.9-5) g/dL Triglycerides 190 H (2-149) mg/dL LDL Cholesterol Direct 33 L (50-130) mg/dL HDL Cholesterol 18 L (40-59) mg/dL Arterial Blood Glucose (65-95) mg/dL Urine pH (5.0-7.0) Urine WBC (Auto) (0.0-6.0) /HPF Salicylates (2.8-20.0) mg/dL Acetaminophen (10.0-30.0) ug/mL 10/26/20 10/26/20 10/26/20 Range/Units 17: 17: 17:28 WBC (4.5-11.0) K/mm3 RBC (3.65-5.03) M/mm3 Hgb (11.8-15.2) gm/dl Hct (35.5-45.6) % MCV (84-94) fl MCHC (32-34) % RDW (13.2-15.2) % Plt Count (140-440) K/mm3 Seg Neuts % (Manual) (40.0-70.0) % Lymphocytes % (Manual) (13.4-35.0) % Seg Neutrophils # Man (1.8-7.7) K/mm3 Monocytes # (Manual) (0.0-0.8) K/mm3 ABG pH (7.350-7.450) pH Units POC ABG pO2 (83-108) mmHg ABG pO2 (80.0-90.0) mm Hg ABG HCO3 (20.0-26.0) mmol/L ABG O2 Saturation (95.0-99.0) % ABG Base Excess (-2.0-3.0) mmol/L ABG Hemoglobin (14.0-18.0) gm/dl ABG Oxyhemoglobin (94-98) ABG Potassium (3.40-4.50) mmol/L ABG Chloride (98-107) mmol/L ABG Glucose (65-95) mg/dL Carboxyhemoglobin (0.5-1.5) Sodium (137-145) mmol/L Chloride (98-107) mmol/L Carbon Dioxide (22-30) mmol/L BUN (9-20) mg/dL Creatinine (0.8-1.3) mg/dL Glucose (75-100) mg/dL Lactic Acid (0.7-2.0) mmol/L Calcium (8.4-10.2) mg/dL Total Creatine Kinase 31 L (55-170) units/L Troponin T (0.00-0.029) ng/mL Albumin (3.9-5) g/dL Triglycerides (2-149) mg/dL LDL Cholesterol Direct (50-130) mg/dL HDL Cholesterol (40-59) mg/dL Arterial Blood Glucose (65-95) mg/dL Urine pH (5.0-7.0) Urine WBC (Auto) (0.0-6.0) /HPF Salicylates < 0.3 L (2.8-20.0) mg/dL Acetaminophen 5.0 L (10.0-30.0) ug/mL 10/26/20 10/26/20 10/26/20 Range/Units 17:30 20:11 22:00 WBC (4.5-11.0) K/mm3 RBC (3.65-5.03) M/mm3 Hgb (11.8-15.2) gm/dl Hct (35.5-45.6) % MCV (84-94) fl MCHC (32-34) % RDW (13.2-15.2) % Plt Count (140-440) K/mm3 Seg Neuts % (Manual) (40.0-70.0) % Lymphocytes % (Manual) (13.4-35.0) % Seg Neutrophils # Man (1.8-7.7) K/mm3 Monocytes # (Manual) (0.0-0.8) K/mm3 ABG pH 7.235 L (7.350-7.450) pH Units POC ABG pO2 (83-108) mmHg ABG pO2 312.4 H (80.0-90.0) mm Hg ABG HCO3 16.4 L (20.0-26.0) mmol/L ABG O2 Saturation 99.5 H (95.0-99.0) % ABG Base Excess -10.4 L (-2.0-3.0) mmol/L ABG Hemoglobin 11.0 L (14.0-18.0) gm/dl ABG Oxyhemoglobin (94-98) ABG Potassium (3.40-4.50) mmol/L ABG Chloride (98-107) mmol/L ABG Glucose (65-95) mg/dL Carboxyhemoglobin (0.5-1.5) Sodium (137-145) mmol/L Chloride (98-107) mmol/L Carbon Dioxide (22-30) mmol/L BUN (9-20) mg/dL Creatinine (0.8-1.3) mg/dL Glucose (75-100) mg/dL Lactic Acid 7.70 H* 6.40 H* (0.7-2.0) mmol/L Calcium (8.4-10.2) mg/dL Total Creatine Kinase (55-170) units/L Troponin T (0.00-0.029) ng/mL Albumin (3.9-5) g/dL Triglycerides (2-149) mg/dL LDL Cholesterol Direct (50-130) mg/dL HDL Cholesterol (40-59) mg/dL Arterial Blood Glucose (65-95) mg/dL Urine pH (5.0-7.0) Urine WBC (Auto) (0.0-6.0) /HPF Salicylates (2.8-20.0) mg/dL Acetaminophen (10.0-30.0) ug/mL 10/27/20 10/27/20 10/27/20 Range/Units 03:25 03:30 04:00 WBC 20.3 H (4.5-11.0) K/mm3 RBC 3.10 L (3.65-5.03) M/mm3 Hgb 9.6 L (11.8-15.2) gm/dl Hct 30.6 L (35.5-45.6) % MCV 99 H (84-94) fl MCHC 31 L (32-34) % RDW 16.9 H (13.2-15.2) % Plt Count (140-440) K/mm3 Seg Neuts % (Manual) (40.0-70.0) % Lymphocytes % (Manual) (13.4-35.0) % Seg Neutrophils # Man 11.6 H (1.8-7.7) K/mm3 Monocytes # (Manual) (0.0-0.8) K/mm3 ABG pH 7.218 L (7.350-7.450) pH Units POC ABG pO2 62.9 L (83-108) mmHg ABG pO2 (80.0-90.0) mm Hg ABG HCO3 (20.0-26.0) mmol/L ABG O2 Saturation (95.0-99.0) % ABG Base Excess (-2.0-3.0) mmol/L ABG Hemoglobin 10.6 L (14.0-18.0) gm/dl ABG Oxyhemoglobin 86.6 L (94-98) ABG Potassium 4.8 H (3.40-4.50) mmol/L ABG Chloride 114.0 H (98-107) mmol/L ABG Glucose 116 H (65-95) mg/dL Carboxyhemoglobin 0.4 L (0.5-1.5) Sodium (137-145) mmol/L Chloride 110.2 H (98-107) mmol/L Carbon Dioxide 17 L (22-30) mmol/L BUN 55 H (9-20) mg/dL Creatinine 1.5 H (0.8-1.3) mg/dL Glucose 109 H (75-100) mg/dL Lactic Acid (0.7-2.0) mmol/L Calcium 7.9 L (8.4-10.2) mg/dL Total Creatine Kinase (55-170) units/L Troponin T (0.00-0.029) ng/mL Albumin 1.3 L (3.9-5) g/dL Triglycerides (2-149) mg/dL LDL Cholesterol Direct (50-130) mg/dL HDL Cholesterol (40-59) mg/dL Arterial Blood Glucose 116 H (65-95) mg/dL Urine pH (5.0-7.0) Urine WBC (Auto) (0.0-6.0) /HPF Salicylates (2.8-20.0) mg/dL Acetaminophen (10.0-30.0) ug/mL 10/27/20 Range/Units Unknown WBC (4.5-11.0) K/mm3 RBC (3.65-5.03) M/mm3 Hgb (11.8-15.2) gm/dl Hct (35.5-45.6) % MCV (84-94) fl MCHC (32-34) % RDW (13.2-15.2) % Plt Count (140-440) K/mm3 Seg Neuts % (Manual) (40.0-70.0) % Lymphocytes % (Manual) (13.4-35.0) % Seg Neutrophils # Man (1.8-7.7) K/mm3 Monocytes # (Manual) (0.0-0.8) K/mm3 ABG pH (7.350-7.450) pH Units POC ABG pO2 (83-108) mmHg ABG pO2 (80.0-90.0) mm Hg ABG HCO3 (20.0-26.0) mmol/L ABG O2 Saturation (95.0-99.0) % ABG Base Excess (-2.0-3.0) mmol/L ABG Hemoglobin (14.0-18.0) gm/dl ABG Oxyhemoglobin (94-98) ABG Potassium (3.40-4.50) mmol/L ABG Chloride (98-107) mmol/L ABG Glucose (65-95) mg/dL Carboxyhemoglobin (0.5-1.5) Sodium (137-145) mmol/L Chloride (98-107) mmol/L Carbon Dioxide (22-30) mmol/L BUN (9-20) mg/dL Creatinine (0.8-1.3) mg/dL Glucose (75-100) mg/dL Lactic Acid (0.7-2.0) mmol/L Calcium (8.4-10.2) mg/dL Total Creatine Kinase (55-170) units/L Troponin T (0.00-0.029) ng/mL Albumin (3.9-5) g/dL Triglycerides (2-149) mg/dL LDL Cholesterol Direct (50-130) mg/dL HDL Cholesterol (40-59) mg/dL Arterial Blood Glucose (65-95) mg/dL Urine pH 8.0 H (5.0-7.0) Urine WBC (Auto) > 182.0 H (0.0-6.0) /HPF Salicylates (2.8-20.0) mg/dL Acetaminophen (10.0-30.0) ug/mL Diabetes panel 10/26/20 10/27/20 10/27/20 Range/Units 17:25 04:00 04:42 Sodium 148 H 144 (137-145) mmol/L Potassium 4.9 4.9 (3.6-5.0) mmol/L Chloride 109.3 H 110.2 H (98-107) mmol/L Carbon Dioxide 19 L 17 L (22-30) mmol/L BUN 57 H 55 H (9-20) mg/dL Creatinine 1.5 H 1.5 H (0.8-1.3) mg/dL Glucose 151 H 109 H (75-100) mg/dL Hemoglobin A1c 5.5 (4-6) % Calcium 8.7 7.9 L (8.4-10.2) mg/dL AST 12 14 (5-40) units/L ALT 7 7 (7-56) units/L Alkaline Phosphatase 103 84 (35-129) units/L Total Protein 7.5 6.8 (6.3-8.2) g/dL Albumin 1.7 L 1.3 L (3.9-5) g/dL Triglycerides 190 H (2-149) mg/dL HDL Cholesterol 18 L (40-59) mg/dL Thyroid panel 10/26/20 Range/Units 17:28 TSH 1.490 (0.270-4.200) mlU/mL Calcium panel 10/26/20 10/27/20 Range/Units 17: 04:00 Calcium 8.7 7.9 L (8.4-10.2) mg/dL Albumin 1.7 L 1.3 L (3.9-5) g/dL Pituitary panel 10/26/20 10/26/20 10/27/20 Range/Units 17:25 17: 04:00 Sodium 148 H 144 (137-145) mmol/L Potassium 4.9 4.9 (3.6-5.0) mmol/L Chloride 109.3 H 110.2 H (98-107) mmol/L Carbon Dioxide 19 L 17 L (22-30) mmol/L BUN 57 H 55 H (9-20) mg/dL Creatinine 1.5 H 1.5 H (0.8-1.3) mg/dL Glucose 151 H 109 H (75-100) mg/dL Calcium 8.7 7.9 L (8.4-10.2) mg/dL TSH 1.490 (0.270-4.200) mlU/mL Adrenal panel 10/26/20 10/27/20 Range/Units 17:25 04:00 Sodium 148 H 144 (137-145) mmol/L Potassium 4.9 4.9 (3.6-5.0) mmol/L Chloride 109.3 H 110.2 H (98-107) mmol/L Carbon Dioxide 19 L 17 L (22-30) mmol/L BUN 57 H 55 H (9-20) mg/dL Creatinine 1.5 H 1.5 H (0.8-1.3) mg/dL Glucose 151 H 109 H (75-100) mg/dL Calcium 8.7 7.9 L (8.4-10.2) mg/dL Total Bilirubin 0.30 0.30 (0.1-1.2) mg/dL AST 12 14 (5-40) units/L ALT 7 7 (7-56) units/L Alkaline Phosphatase 103 84 (35-129) units/L Total Protein 7.5 6.8 (6.3-8.2) g/dL Albumin 1.7 L 1.3 L (3.9-5) g/dL - Imaging CT scan - abdomen: report reviewed, image reviewed CT scan - pelvis: report reviewed, image reviewed Assessment and Plan 75 year old male with sepsis. Possible etiology could be infected sacral wound. Extremely poor prognosis as he is intubated requiring ventilator support, and currently on vasopressors. Pt may benefit from debridement however CT scan finding suggest wound may be going as deep as the ischio-rectal fossa on the left. Pt's current status makes him extremely high risk to position and fully debride area being that he is intubated and requiring pressors. Spoke with Dr. Monk who will locate decision making family member to discuss overall prognosis and determine if they will consent for procedure. In the interim, continue abx and supportive care.
[2020-10-27] MEDS: metroNIDAZOLE/NS 500 MG/100 ML 500 MG/100 ML BAG IV SCH ×2 (13:44→22:14)
--- NOTE | 2020-10-27 13:56 | Progress Note ---
<HALIE PIERCE - Last Filed: 10/27/20 13:51> Assessment and Plan Assessment and plan: -Infectious disease, surgery, CCM, WOCN consulted, appreciate recommendations -Antibiotic therapy -IV fluid boluses for goal CVP 10-12 -Trend CBC, BMP -Follow-up blood culture x2 and urine culture -VAP bundle, wean as tolerated GI/DVT prophylaxis: Heparin subcu, SCDs to bilateral legs while in bed, PPI Dispo: ICU History Interval history: This is a 75-year-old male who is a custodial resident with seizure disorder, hypertension, depression, hyperlipidemia, hypoglycemia, dysphagia, and encephalopathy who presents to the emergency department on 10/26 via EMS for tachypnea, dry mucous membranes and hypoxia. Patient was hypotensive, febrile to 103 degrees and hypoxic in the emergency department therefore he was intubated and central IV access was obtained. Patient received 3.5 L of IV fluid in the emergency department. Patient was admitted to the hospital service with consults to CCM, surgery, WOCN and ID for sepsis likely secondary to infected wound. Sepsis Acute respiratory failure Infected sacral wound UTI Bilateral pneumonia Acute kidney injury Leukocytosis Hyponatremia Hypochloremia Metabolic acidosis Elevated BUN/creatinine Lactic acidosis 10/27: Patient received additional 4 L LR for fluid resuscitation and CV monitoring was initiated. Patient is on Levophed. ID added Flagyl to vancomycin and cefepime. His trach aspirate grew staph coccus aureus. At the time my examination patient the fentanyl drip was held by RN and he was on 14 MCG of Levophed. This morning he was on assist control 450/20/6/.100. We will give additional bolus of fluids with goal CVP 10-12 and repeat labs in AM. Surgery was consulted to possible debridement. Hospitalist Physical - Constitutional Vitals: Temp Pulse Resp BP Pulse Ox 97.7 F 108 H 26 H 107/56 100 10/27/20 12:10 10/27/20 13:30 10/27/20 13:30 10/27/20 13:30 10/27/20 13:30 General appearance: Present: no acute distress, well-nourished - EENT Eyes: Present: PERRL ENT: poor dentition - Neck Neck: Absent: masses or JVD - Respiratory Respiratory effort: normal Respiratory: bilateral: diminished - Cardiovascular Rhythm: regular Heart Sounds: Present: S1 & S2. Absent: systolic murmur, diastolic murmur - Extremities Extremities: no ischemia, pulses intact, pulses symmetrical, No edema, normal temperature, normal color Peripheral Pulses: within normal limits - Abdominal General gastrointestinal: soft, non-tender, non-distended, normal bowel sounds - Integumentary Integumentary: Present: warm, dry - Psychiatric Psychiatric: other (sedated) - Neurologic Neurologic: other (sedated) - Allied Health Allied health notes reviewed: nursing, RT, social work, case management HEART Score - HEART Score EKG: Non-specific Age: > 65 Risk factors: > 3 risk factors or hx of atherosclerotic disease Troponin: Troponin T 0.062 ng/mL (0.00-0.029) H 10/26/20 17:25 Troponin: < normal limit - Critical Actions Critical Actions: 4-6 pts:12-16.6% risk of adverse cardiac event. Should be admitted Results - Labs CBC & Chem 7: 10/27/20 03:30 10/27/20 04:00 Labs: Laboratory Last Values WBC 20.3 K/mm3 (4.5-11.0) H 10/27/20 03:30 RBC 3.10 M/mm3 (3.65-5.03) L 10/27/20 03:30 Hgb 9.6 gm/dl (11.8-15.2) L 10/27/20 03:30 Hct 30.6 % (35.5-45.6) L 10/27/20 03:30 MCV 99 fl (84-94) H 10/27/20 03:30 MCH 31 pg (28-32) 10/27/20 03:30 MCHC 31 % (32-34) L 10/27/20 03:30 RDW 16.9 % (13.2-15.2) H 10/27/20 03:30 Plt Count 377 K/mm3 (140-440) 10/27/20 03:30 Add Manual Diff Complete 10/27/20 03:30 Total Counted 100 10/27/20 03:30 Seg Neuts % (Manual) 57.0 % (40.0-70.0) 10/27/20 03:30 Band Neutrophils % 17.0 % 10/27/20 03:30 Lymphocytes % (Manual) 18.0 % (13.4-35.0) 10/27/20 03:30 Monocytes % (Manual) 2.0 % (0.0-7.3) 10/27/20 03:30 Eosinophils % (Manual) 2.0 % (0.0-4.3) 10/27/20 03:30 Metamyelocytes % 4.0 % 10/27/20 03:30 Nucleated RBC % Not Reportable 10/27/20 03:30 Seg Neutrophils # Man 11.6 K/mm3 (1.8-7.7) H 10/27/20 03:30 Band Neutrophils # 3.5 K/mm3 10/27/20 03:30 Lymphocytes # (Manual) 3.7 K/mm3 (1.2-5.4) 10/27/20 03:30 Abs React Lymphs (Man) 0.0 K/mm3 10/27/20 03:30 Monocytes # (Manual) 0.4 K/mm3 (0.0-0.8) 10/27/20 03:30 Eosinophils # (Manual) 0.4 K/mm3 (0.0-0.4) 10/27/20 03:30 Basophils # (Manual) 0.0 K/mm3 (0.0-0.1) 10/27/20 03:30 Metamyelocytes # 0.8 K/mm3 10/27/20 03:30 Myelocytes # 0.0 K/mm3 10/27/20 03:30 Promyelocytes # 0.0 K/mm3 10/27/20 03:30 Blast Cells # 0.0 K/mm3 10/27/20 03:30 WBC Morphology Not Reportable 10/27/20 03:30 Hypersegmented Neuts Not Reportable 10/27/20 03:30 Hyposegmented Neuts Not Reportable 10/27/20 03:30 Hypogranular Neuts Not Reportable 10/27/20 03:30 Smudge Cells Not Reportable 10/27/20 03:30 Toxic Granulation Not Reportable 10/27/20 03:30 Toxic Vacuolation Not Reportable 10/27/20 03:30 Dohle Bodies Not Reportable 10/27/20 03:30 Pelger-Huet Anomaly Not Reportable 10/27/20 03:30 Kassi Rods Not Reportable 10/27/20 03:30 Platelet Estimate Consistent w auto 10/27/20 03:30 Clumped Platelets Not Reportable 10/27/20 03:30 Plt Clumps, EDTA Not Reportable 10/27/20 03:30 Large Platelets Not Reportable 10/27/20 03:30 Giant Platelets Not Reportable 10/27/20 03:30 Platelet Satelliting Not Reportable 10/27/20 03:30 Plt Morphology Comment Not Reportable 10/27/20 03:30 RBC Morphology Not Reportable 10/27/20 03:30 Dimorphic RBCs Not Reportable 10/27/20 03:30 Polychromasia Not Reportable 10/27/20 03:30 Hypochromasia Few 10/27/20 03:30 Poikilocytosis Not Reportable 10/27/20 03:30 Anisocytosis Few 10/27/20 03:30 Microcytosis Not Reportable 10/27/20 03:30 Macrocytosis Not Reportable 10/27/20 03:30 Spherocytes Not Reportable 10/27/20 03:30 Pappenheimer Bodies Not Reportable 10/27/20 03:30 Sickle Cells Not Reportable 10/27/20 03:30 Target Cells Not Reportable 10/27/20 03:30 Tear Drop Cells Not Reportable 10/27/20 03:30 Ovalocytes Not Reportable 10/27/20 03:30 Helmet Cells Not Reportable 10/27/20 03:30 [place] Bodies Not Reportable 10/27/20 03:30 [place] Rings Not Reportable 10/27/20 03:30 Rhea Cells Not Reportable 10/27/20 03:30 Bite Cells Not Reportable 10/27/20 03:30 Crenated Cell Not Reportable 10/27/20 03:30 Elliptocytes Not Reportable 10/27/20 03:30 Acanthocytes (Spur) Not Reportable 10/27/20 03:30 Rouleaux Not Reportable 10/27/20 03:30 Hemoglobin C Crystals Not Reportable 10/27/20 03:30 Schistocytes Not Reportable 10/27/20 03:30 Malaria parasites Not Reportable 10/27/20 03:30 Richard Bodies Not Reportable 10/27/20 03:30 Hem Pathologist Commnt No 10/27/20 03:30 APTT 27.9 Sec. (24.2-36.6) 10/26/20 17:25 ABG pH 7.218 (7.320-7.450) L 10/27/20 03:25 POC ABG pCO2 40.1 mmHg (32.0-48.0) 10/27/20 03:25 ABG pCO2 39.5 mm Hg 10/26/20 17:30 POC ABG pO2 62.9 mmHg (83-108) L 10/27/20 03:25 ABG pO2 312.4 mm Hg (80.0-90.0) H 10/26/20 17:30 POC ABG HCO3 16.0 10/27/20 03:25 ABG HCO3 16.4 mmol/L (20.0-26.0) L 10/26/20 17:30 ABG O2 Saturation 87.0 (0-100) 10/27/20 03:25 ABG O2 Content 15.9 (0.0-44) 10/26/20 17:30 POC ABG Base Excess -11.1 10/27/20 03:25 ABG Base Excess -10.4 mmol/L (-2.0-3.0) L 10/26/20 17:30 ABG Hemoglobin 10.6 (12.0-17.5) L 10/27/20 03:25 ABG Oxyhemoglobin 86.6 (94-98) L 10/27/20 03:25 ABG Carboxyhemoglobin 1.1 % (0.0-5.0) 10/26/20 17:30 ABG Methemoglobin 0.1 (0.0-1.5) 10/27/20 03:25 ABG Sodium 143.4 mmol/L (136.0-145.0) 10/27/20 03:25 ABG Potassium 4.8 mmol/L (3.40-4.50) H 10/27/20 03:25 ABG Chloride 114.0 mmol/L (98-107) H 10/27/20 03:25 ABG Glucose 116 mg/dL (65-95) H 10/27/20 03:25 Oxyhemoglobin 97.7 % (95.0-99.0) 10/26/20 17:30 Carboxyhemoglobin 0.4 (0.5-1.5) L 10/27/20 03:25 FiO2 100 % 10/26/20 17:30 FiO2 % 50.0 10/27/20 03:25 Sodium 144 mmol/L (137-145) 10/27/20 04:00 Potassium 4.9 mmol/L (3.6-5.0) 10/27/20 04:00 Chloride 110.2 mmol/L (98-107) H 10/27/20 04:00 Carbon Dioxide 17 mmol/L (22-30) L 10/27/20 04:00 Anion Gap 22 mmol/L 10/27/20 04:00 BUN 55 mg/dL (9-20) H 10/27/20 04:00 Creatinine 1.5 mg/dL (0.8-1.3) H 10/27/20 04:00 Estimated GFR 55 ml/min 10/27/20 04:00 BUN/Creatinine Ratio 37 % 10/27/20 04:00 Glucose 109 mg/dL (75-100) H 10/27/20 04:00 Hemoglobin A1c 5.5 % (4-6) 10/27/20 04:42 Lactic Acid 6.40 mmol/L (0.7-2.0) H* 10/26/20 22:00 Calcium 7.9 mg/dL (8.4-10.2) L 10/27/20 04:00 Magnesium 1.90 mg/dL (1.7-2.3) 10/26/20 17:28 Total Bilirubin 0.30 mg/dL (0.1-1.2) 10/27/20 04:00 AST 14 units/L (5-40) 10/27/20 04:00 ALT 7 units/L (7-56) 10/27/20 04:00 Alkaline Phosphatase 84 units/L (35-129) 10/27/20 04:00 Total Creatine Kinase 31 units/L (55-170) L 10/26/20 17:28 Troponin T 0.062 ng/mL (0.00-0.029) H 10/26/20 17:25 Total Protein 6.8 g/dL (6.3-8.2) 10/27/20 04:00 Albumin 1.3 g/dL (3.9-5) L 10/27/20 04:00 Albumin/Globulin Ratio 0.2 % 10/27/20 04:00 Triglycerides 190 mg/dL (2-149) H 10/26/20 17:25 Cholesterol 92 mg/dL (50-199) 10/26/20 17:25 LDL Cholesterol Direct 33 mg/dL (50-130) L 10/26/20 17:25 HDL Cholesterol 18 mg/dL (40-59) L 10/26/20 17:25 Cholesterol/HDL Ratio 5.11 % 10/26/20 17:25 TSH 1.490 mlU/mL (0.270-4.200) 10/26/20 17:28 Arterial Blood Glucose 116 mg/dL (65-95) H 10/27/20 03:25 Arterial Blood Ionized Calcium 4.7 mg/dL (4.6-5.3) 10/27/20 03: Urine Color Yellow (Yellow) 10/27/20 Unknown Urine Turbidity Turbid (Clear) 10/27/20 Unknown Urine pH 8.0 (5.0-7.0) H 10/27/20 Unknown Ur Specific [place] 1.020 (1.003-1.030) 10/27/20 Unknown Urine Protein >500 mg/dL (Negative) 10/27/20 Unknown Urine Glucose (UA) Neg mg/dL (Negative) 10/27/20 Unknown Urine Ketones Neg mg/dL (Negative) 10/27/20 Unknown Urine Blood Sm (Negative) 10/27/20 Unknown Urine Nitrite Neg (Negative) 10/27/20 Unknown Urine Bilirubin Neg (Negative) 10/27/20 Unknown Urine Urobilinogen < 2.0 mg/dL (<2.0) 10/27/20 Unknown Ur Leukocyte Esterase Mod (Negative) 10/27/20 Unknown Urine WBC (Auto) > 182.0 /HPF (0.0-6.0) H 10/27/20 Unknown Urine RBC (Auto) 35.0 /HPF (0.0-6.0) 10/27/20 Unknown Urine WBC Clumps 3+ /HPF 10/27/20 Unknown Urine Mucus 3+ /HPF 10/27/20 Unknown Urine Yeast (Budding) 3+ /HPF 10/27/20 Unknown Salicylates < 0.3 mg/dL (2.8-20.0) L 10/26/20 17:28 Acetaminophen 5.0 ug/mL (10.0-30.0) L 10/26/20 17:28 Microbiology: Microbiology 10/26/20 19:40 Tracheal Aspirate Sputum Culture - Preliminary Staphylococcus Aureus 10/26/20 Unknown Peripheral/Venous Blood Culture - Preliminary Culture in Progress 10/26/20 Unknown Peripheral/Venous Blood Culture - Preliminary Culture in Progress Rivas/IV: Voiding Method Indwelling Catheter Active Medications - Current Medications Current Medications: Generic Name Dose Route Start Last Admin Trade Name Freq PRN Reason Stop Dose Admin Acetaminophen 650 mg 10/26/20 22:22 Acetaminophen 325 Mg Tab PO Q4H PRN Pain MILD(1-3)/Fever >100.5/TIERNEY Famotidine 20 mg 10/26/20 23:00 10/27/20 09:07 Famotidine 20 Mg/2 Ml Inj IV 20 mg DAILY MARSHALL Administration Fentanyl 50 mcg 10/26/20 17:25 Fentanyl 100 Mcg/2 Ml Inj IV Q10MIN PRN ANALGESIA Fentanyl 50 mcg 10/27/20 10:39 10/27/20 11:34 Fentanyl 100 Mcg/2 Ml Inj IV 50 mcg Q2H PRN Administration Pain , Severe (7-10) Heparin Sodium (Porcine) 5,000 unit 10/26/20 22:45 10/27/20 09:07 Heparin 5,000 Unit/1 Ml Vial SUB-Q 5,000 unit Q12HR MARSHALL Administration Hydrophilic Ointment 1 applic 10/26/20 17:25 Lip Therapy Vaseline TP Q2HR PRN Dry Lips Norepinephrine 4 mg in 250 mls @ 7.5 mls/hr 10/26/20 18:00 10/27/20 13:40 Levophed Drip 4 Mg/Ns 250 Ml IV 12 mcg/min TITR MARSHALL 45 mls/hr Titration Protocol 2 MCG/MIN Fentanyl Citrate 2,000 mcg in 100 mls @ 4.165 mls/hr 10/26/20 18:00 10/27/20 08:00 Fentanyl Drip Premix IV 0 mcg/kg/hr TITR MARSHALL 0 mls/hr Titration Protocol 1 MCG/KG/HR Cefepime HCl 2 gm in 100 mls @ 200 mls/hr 10/27/20 06:00 10/27/20 07:18 Cefepime/Ns 2 Gm/100 Ml IV Not Given Q12H MARSHALL Protocol Vancomycin HCl 1,250 mg/ 275 mls @ 166.667 mls/hr 10/27/20 20:00 Sodium Chloride IV Q24H MARSHALL Lactated Ringer's 1,000 mls @ 999 mls/hr 10/27/20 13:30 10/27/20 13:44 Lactated Ringers IV 10/27/20 15:29 999 mls/hr Q1H MARSHALL Administration Metronidazole 500 mg in 100 mls @ 100 mls/hr 10/27/20 14:00 10/27/20 13:44 Flagyl 500 Mg/100 Ml IV 100 mls/hr Q8HR MARSHALL Administration Protocol Multi-Ingred Cream/Lotion/Oil/Oint 1 applic 10/26/20 17:25 Mineral Oil/Petrolatum, White Ophth Oint 3.5 Gm OU Q4HR PRN Dry Eye(s) Ondansetron HCl 4 mg 10/26/20 22:22 Ondansetron 4 Mg/2 Ml Inj IV Q8H PRN Nausea And Vomiting Sodium Chloride 5 ml 10/26/20 17:25 Sodium Chloride 0.9% 500 Ml Ivpb IV DIRECT PRN 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 Sodium Chloride 10 ml 10/27/20 10:00 10/27/20 09:07 Sodium Chloride 0.9% 10 Ml Flush Syringe IV 10 ml BID MARSHALL Administration Sodium Chloride 10 ml 10/26/20 22:22 Sodium Chloride 0.9% 10 Ml Flush Syringe IV PRN PRN LINE FLUSH Nutrition/Malnutrition Assess - Dietary Evaluation Nutrition/Malnutrition Findings: Nutrition Notes Start: 10/27/20 09:15 Freq: Status: Active Protocol: Document 10/27/20 09:15 CW (Rec: 10/27/20 09:36 CW [id number]) Nutrition Notes Need for Assessment generated from: MD Order,applications support engineer,MST Current Diagnosis Acute Kidney Injury,Decubitus( Pressure Ulcer),Sepsis, Hypertension,Respiratory Failure,Hyperlipidemia Other Pertinent Diagnosis Encephalopathy, Metabiloc Acidosis, pneu, Covid 19 PUI, FTT Current Diet No current Diet Labs/Tests BUN 55 Cr 1.5 Pertinent Medications LR 1L Levophed Fentanyl NS at 125 ml/hr Height 6 ft 2 in Weight 81.5 kg [place] Body Weight (kg) 86.36 BMI 23.1 Weight Status Appropriate Subjective/Other Information MD consult for nutritional intake. RN screen for MST, hx of chewing difficulty, and skin risk. Pt on mechanical vent with multiple pressure ulcers. Recommend initiating TF. Burn Absent Trauma Absent Difficulty In Swallowing,Chewing Skin Integrity/Comment Multiple pressure ulcer,1 infected Current % PO Negligible #1 Nutrition Diagnosis Inadequate oral intake Etiology pt unable to consume food via PO As Evidenced by Signs and Symptoms pt on mechanical vent Is patient on ventilator? Yes Is Patient Ambulatory and/or Out of Bed No REE-([facility] [place]-confined to bed) 1944.024 Calculation Used for Recommendations [facility] Additional Notes protein needs:98 - 163g (1.2 - 2g/kgBW) Fluid needs 1 ml/kcal Nutrition Intervention Change Diet Order: TF when medically feasible Nutrition Support: Nepro at 50 ml/hr with a free water flush of 215 ml q4h Kcal 2,160 Protein (gm) 97 Fluid (mL) 1,362 Goal #1 Initiate TF regimen when medically feasible Anticipated Discharge Needs: unable to determine at this time Follow-Up By: 10/29/20 Additional Comments F/U for TF consult and vent status <CHARLIE HERBERT - Last Filed: 10/28/20 07:03> Assessment and Plan Assessment and plan: I saw and evaluated the patient. I agree with the findings and the plan of care as documented in the Nurse Practitioner's~note, with the following corrections and additions. Hospitalist Physical - Constitutional Vitals: Temp Pulse Resp BP Pulse Ox 98.7 F 125 H 30 H 105/54 95 10/28/20 03:22 10/28/20 06:00 10/28/20 06:00 10/28/20 06:00 10/28/20 06:00 HEART Score - HEART Score Troponin: Troponin T 0.062 ng/mL (0.00-0.029) H 10/26/20 17:25 Results - Labs CBC & Chem 7: 10/28/20 00:40 10/28/20 05:36 Labs: Laboratory Last Values WBC 23.1 K/mm3 (4.5-11.0) H 10/28/20 00:40 RBC 2.42 M/mm3 (3.65-5.03) L 10/28/20 00:40 Hgb 7.5 gm/dl (11.8-15.2) L 10/28/20 00:40 Hct 23.7 % (35.5-45.6) L D 10/28/20 00:40 MCV 98 fl (84-94) H 10/28/20 00:40 MCH 31 pg (28-32) 10/28/20 00:40 MCHC 32 % (32-34) 10/28/20 00:40 RDW 16.8 % (13.2-15.2) H 10/28/20 00:40 Plt Count 205 K/mm3 (140-440) 10/28/20 00:40 Add Manual Diff Complete 10/27/20 03:30 Total Counted 100 10/27/20 03:30 Seg Neuts % (Manual) 57.0 % (40.0-70.0) 10/27/20 03:30 Band Neutrophils % 17.0 % 10/27/20 03:30 Lymphocytes % (Manual) 18.0 % (13.4-35.0) 10/27/20 03:30 Monocytes % (Manual) 2.0 % (0.0-7.3) 10/27/20 03:30 Eosinophils % (Manual) 2.0 % (0.0-4.3) 10/27/20 03:30 Metamyelocytes % 4.0 % 10/27/20 03:30 Nucleated RBC % Not Reportable 10/27/20 03:30 Seg Neutrophils # Man 11.6 K/mm3 (1.8-7.7) H 10/27/20 03:30 Band Neutrophils # 3.5 K/mm3 10/27/20 03:30 Lymphocytes # (Manual) 3.7 K/mm3 (1.2-5.4) 10/27/20 03:30 Abs React Lymphs (Man) 0.0 K/mm3 10/27/20 03:30 Monocytes # (Manual) 0.4 K/mm3 (0.0-0.8) 10/27/20 03:30 Eosinophils # (Manual) 0.4 K/mm3 (0.0-0.4) 10/27/20 03:30 Basophils # (Manual) 0.0 K/mm3 (0.0-0.1) 10/27/20 03:30 Metamyelocytes # 0.8 K/mm3 10/27/20 03:30 Myelocytes # 0.0 K/mm3 10/27/20 03:30 Promyelocytes # 0.0 K/mm3 10/27/20 03:30 Blast Cells # 0.0 K/mm3 10/27/20 03:30 WBC Morphology Not Reportable 10/27/20 03:30 Hypersegmented Neuts Not Reportable 10/27/20 03:30 Hyposegmented Neuts Not Reportable 10/27/20 03:30 Hypogranular Neuts Not Reportable 10/27/20 03:30 Smudge Cells Not Reportable 10/27/20 03:30 Toxic Granulation Not Reportable 10/27/20 03:30 Toxic Vacuolation Not Reportable 10/27/20 03:30 Dohle Bodies Not Reportable 10/27/20 03:30 Pelger-Huet Anomaly Not Reportable 10/27/20 03:30 Kassi Rods Not Reportable 10/27/20 03:30 Platelet Estimate Consistent w auto 10/27/20 03:30 Clumped Platelets Not Reportable 10/27/20 03:30 Plt Clumps, EDTA Not Reportable 10/27/20 03:30 Large Platelets Not Reportable 10/27/20 03:30 Giant Platelets Not Reportable 10/27/20 03:30 Platelet Satelliting Not Reportable 10/27/20 03:30 Plt Morphology Comment Not Reportable 10/27/20 03:30 RBC Morphology Not Reportable 10/27/20 03:30 Dimorphic RBCs Not Reportable 10/27/20 03:30 Polychromasia Not Reportable 10/27/20 03:30 Hypochromasia Few 10/27/20 03:30 Poikilocytosis Not Reportable 10/27/20 03:30 Anisocytosis Few 10/27/20 03:30 Microcytosis Not Reportable 10/27/20 03:30 Macrocytosis Not Reportable 10/27/20 03:30 Spherocytes Not Reportable 10/27/20 03:30 Pappenheimer Bodies Not Reportable 10/27/20 03:30 Sickle Cells Not Reportable 10/27/20 03:30 Target Cells Not Reportable 10/27/20 03:30 Tear Drop Cells Not Reportable 10/27/20 03:30 Ovalocytes Not Reportable 10/27/20 03:30 Helmet Cells Not Reportable 10/27/20 03:30 [place] Bodies Not Reportable 10/27/20 03:30 [place] Rings Not Reportable 10/27/20 03:30 Rhea Cells Not Reportable 10/27/20 03:30 Bite Cells Not Reportable 10/27/20 03:30 Crenated Cell Not Reportable 10/27/20 03:30 Elliptocytes Not Reportable 10/27/20 03:30 Acanthocytes (Spur) Not Reportable 10/27/20 03:30 Rouleaux Not Reportable 10/27/20 03:30 Hemoglobin C Crystals Not Reportable 10/27/20 03:30 Schistocytes Not Reportable 10/27/20 03:30 Malaria parasites Not Reportable 10/27/20 03:30 Richard Bodies Not Reportable 10/27/20 03:30 Hem Pathologist Commnt No 10/27/20 03:30 APTT 27.9 Sec. (24.2-36.6) 10/26/20 17:25 ABG pH 7.175 (7.320-7.450) L 10/28/20 03:30 POC ABG pCO2 37.2 mmHg (32.0-48.0) 10/28/20 03:30 ABG pCO2 39.5 mm Hg 10/26/20 17:30 POC ABG pO2 71.5 mmHg (83-108) L 10/28/20 03:30 ABG pO2 312.4 mm Hg (80.0-90.0) H 10/26/20 17:30 POC ABG HCO3 13.4 10/28/20 03:30 ABG HCO3 16.4 mmol/L (20.0-26.0) L 10/26/20 17:30 ABG O2 Saturation 91 (0-100) 10/28/20 03:30 ABG O2 Content 15.9 (0.0-44) 10/26/20 17:30 POC ABG Base Excess -14 10/28/20 03:30 ABG Base Excess -10.4 mmol/L (-2.0-3.0) L 10/26/20 17:30 ABG Hemoglobin 8.8 (12.0-17.5) L 10/28/20 03:30 ABG Oxyhemoglobin 86.6 (94-98) L 10/27/20 03:25 ABG Carboxyhemoglobin 1.1 % (0.0-5.0) 10/26/20 17:30 ABG Methemoglobin 0.1 (0.0-1.5) 10/27/20 03:25 ABG Sodium 141.1 mmol/L (136.0-145.0) 10/28/20 03:30 ABG Potassium 4.7 mmol/L (3.40-4.50) H 10/28/20 03:30 ABG Chloride 114.0 mmol/L (98-107) H 10/28/20 03:30 ABG Glucose 100 mg/dL (65-95) H 10/28/20 03:30 Oxyhemoglobin 97.7 % (95.0-99.0) 10/26/20 17:30 Carboxyhemoglobin 0.4 (0.5-1.5) L 10/27/20 03:25 FiO2 100 % 10/26/20 17:30 FiO2 % 40 10/28/20 03:30 Sodium 145 mmol/L (137-145) 10/28/20 05:36 Potassium 5.0 mmol/L (3.6-5.0) 10/28/20 05:36 Chloride 114.6 mmol/L (98-107) H 10/28/20 05:36 Carbon Dioxide 15 mmol/L (22-30) L 10/28/20 05:36 Anion Gap 20 mmol/L 10/28/20 05:36 BUN 48 mg/dL (9-20) H 10/28/20 05:36 Creatinine 1.4 mg/dL (0.8-1.3) H 10/28/20 05:36 Estimated GFR 60 ml/min 10/28/20 05:36 BUN/Creatinine Ratio 34 % 10/28/20 05:36 Glucose 91 mg/dL (75-100) 10/28/20 05:36 POC Glucose 90 mg/dL (70-105) 10/28/20 02:07 Hemoglobin A1c 5.5 % (4-6) 10/27/20 04:42 Lactic Acid 7.60 mmol/L (0.7-2.0) H* 10/28/20 05:36 Calcium 7.7 mg/dL (8.4-10.2) L 10/28/20 05:36 Phosphorus 2.80 mg/dL (2.5-4.5) 10/28/20 00:40 Magnesium 1.40 mg/dL (1.7-2.3) L 10/28/20 00:40 Total Bilirubin 0.20 mg/dL (0.1-1.2) 10/28/20 00:40 AST 13 units/L (5-40) 10/28/20 00:40 ALT 8 units/L (7-56) 10/28/20 00:40 Alkaline Phosphatase 70 units/L (35-129) 10/28/20 00:40 Total Creatine Kinase 31 units/L (55-170) L 10/26/20 17:28 Troponin T 0.062 ng/mL (0.00-0.029) H 10/26/20 17:25 Total Protein 5.8 g/dL (6.3-8.2) L 10/28/20 00:40 Albumin 1.2 g/dL (3.9-5) L 10/28/20 00:40 Albumin/Globulin Ratio 0.3 % 10/28/20 00:40 Triglycerides 190 mg/dL (2-149) H 10/26/20 17:25 Cholesterol 92 mg/dL (50-199) 10/26/20 17:25 LDL Cholesterol Direct 33 mg/dL (50-130) L 10/26/20 17:25 HDL Cholesterol 18 mg/dL (40-59) L 10/26/20 17:25 Cholesterol/HDL Ratio 5.11 % 10/26/20 17:25 TSH 1.490 mlU/mL (0.270-4.200) 10/26/20 17:28 Arterial Blood Glucose 100 mg/dL (65-95) H 10/28/20 03:30 Arterial Blood Ionized Calcium 4.4 mg/dL (4.6-5.3) L 10/28/20 03:30 Urine Color Yellow (Yellow) 10/27/20 Unknown Urine Turbidity Turbid (Clear) 10/27/20 Unknown Urine pH 8.0 (5.0-7.0) H 10/27/20 Unknown Ur Specific Proctor 1.020 (1.003-1.030) 10/27/20 Unknown Urine Protein >500 mg/dL (Negative) 10/27/20 Unknown Urine Glucose (UA) Neg mg/dL (Negative) 10/27/20 Unknown Urine Ketones Neg mg/dL (Negative) 10/27/20 Unknown Urine Blood Sm (Negative) 10/27/20 Unknown Urine Nitrite Neg (Negative) 10/27/20 Unknown Urine Bilirubin Neg (Negative) 10/27/20 Unknown Urine Urobilinogen < 2.0 mg/dL (<2.0) 10/27/20 Unknown Ur Leukocyte Esterase Mod (Negative) 10/27/20 Unknown Urine WBC (Auto) > 182.0 /HPF (0.0-6.0) H 10/27/20 Unknown Urine RBC (Auto) 35.0 /HPF (0.0-6.0) 10/27/20 Unknown Urine WBC Clumps 3+ /HPF 10/27/20 Unknown Urine Mucus 3+ /HPF 10/27/20 Unknown Urine Yeast (Budding) 3+ /HPF 10/27/20 Unknown Salicylates < 0.3 mg/dL (2.8-20.0) L 10/26/20 17:28 Acetaminophen 5.0 ug/mL (10.0-30.0) L 10/26/20 17:28 Coronavirus (PCR) Negative (Negative) 10/27/20 Unknown Microbiology: Microbiology 10/26/20 Unknown Peripheral/Venous Blood Culture - Preliminary 10/26/20 Unknown Peripheral/Venous Blood Culture - Preliminary 10/26/20 19:40 Tracheal Aspirate Sputum Culture - Preliminary Staphylococcus Aureus Rivas/IV: Voiding Method Indwelling Catheter Active Medications - Current Medications Current Medications: Generic Name Dose Route Start Last Admin Trade Name Freq PRN Reason Stop Dose Admin Acetaminophen 650 mg 10/26/20 22:22 Acetaminophen 325 Mg Tab PO Q4H PRN Pain MILD(1-3)/Fever >100.5/TIERNEY Famotidine 20 mg 10/26/20 23:00 10/27/20 09:07 Famotidine 20 Mg/2 Ml Inj IV 20 mg DAILY MARSHALL Administration Fentanyl 50 mcg 10/26/20 17:25 Fentanyl 100 Mcg/2 Ml Inj IV Q10MIN PRN ANALGESIA Fentanyl 50 mcg 10/27/20 10:39 10/27/20 23:56 Fentanyl 100 Mcg/2 Ml Inj IV 50 mcg Q2H PRN Administration Pain , Severe (7-10) Heparin Sodium (Porcine) 5,000 unit 10/26/20 22:45 10/27/20 22:18 Heparin 5,000 Unit/1 Ml Vial SUB-Q 5,000 unit Q12HR MARSHALL Administration Hydrophilic Ointment 1 applic 10/26/20 17:25 Lip Therapy Vaseline TP Q2HR PRN Dry Lips Fentanyl Citrate 2,000 mcg in 100 mls @ 4.165 mls/hr 10/26/20 18:00 10/27/20 08:00 Fentanyl Drip Premix IV 0 mcg/kg/hr TITR MARSHALL 0 mls/hr Titration Protocol 1 MCG/KG/HR Cefepime HCl 2 gm in 100 mls @ 200 mls/hr 10/27/20 06:00 10/28/20 05:39 Cefepime/Ns 2 Gm/100 Ml IV 200 mls/hr Q12H MARSHALL Administration Protocol Vancomycin HCl 1,250 mg/ 275 mls @ 166.667 mls/hr 10/27/20 20:00 10/27/20 20:30 Sodium Chloride IV 166.667 mls/hr Q24H MARSHALL Administration Metronidazole 500 mg in 100 mls @ 100 mls/hr 10/27/20 14:00 10/28/20 05:39 Flagyl 500 Mg/100 Ml IV 100 mls/hr Q8HR MARSHALL Administration Protocol Lactated Ringer's 1,000 mls @ 999 mls/hr 10/27/20 17:45 10/27/20 19:04 Lactated Ringers IV 10/28/20 18:46 999 mls/hr DIRECT MARSHALL Administration Norepinephrine 4 mg in 250 mls @ 112.5 mls/hr 10/28/20 01:00 10/28/20 06:38 Levophed Drip 4 Mg/Ns 250 Ml IV 30 mcg/min TITR MARSHALL 112.5 mls/hr Administration Protocol 30 MCG/MIN Amiodarone HCl 900 mg/ 500 mls @ 33.333 mls/hr 10/28/20 01:00 10/28/20 01:40 Dextrose IV 0 mg/min DIRECT MARSHALL 0 mls/hr Infusion Protocol 1 MG/MIN Diltiazem HCl 100 mg in 100 mls @ 5 mls/hr 10/28/20 02:00 10/28/20 05:44 Cardizem/D5w 100mg/100ml IV 15 mg/hr TITR MARSHALL 15 mls/hr Administration Protocol 5 MG/HR Multi-Ingred Cream/Lotion/Oil/Oint 1 applic 10/26/20 17:25 Mineral Oil/Petrolatum, White Ophth Oint 3.5 Gm OU Q4HR PRN Dry Eye(s) Ondansetron HCl 4 mg 10/26/20 22:22 Ondansetron 4 Mg/2 Ml Inj IV Q8H PRN Nausea And Vomiting Sodium Chloride 5 ml 10/26/20 17:25 Sodium Chloride 0.9% 500 Ml Ivpb IV DIRECT PRN 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 Sodium Chloride 10 ml 10/27/20 10:00 10/27/20 23:57 Sodium Chloride 0.9% 10 Ml Flush Syringe IV 10 ml BID MARSHALL Administration Sodium Chloride 10 ml 10/26/20 22:22 Sodium Chloride 0.9% 10 Ml Flush Syringe IV PRN PRN LINE FLUSH Nutrition/Malnutrition Assess - Dietary Evaluation Nutrition/Malnutrition Findings: Nutrition Notes Start: 10/27/20 09:15 Freq: Status: Active Protocol: Document 10/27/20 09:15 CW (Rec: 10/27/20 09:36 CW [id number]) Nutrition Notes Need for Assessment generated from: MD Order,applications support engineer,MST Current Diagnosis Acute Kidney Injury,Decubitus( Pressure Ulcer),Sepsis, Hypertension,Respiratory Failure,Hyperlipidemia Other Pertinent Diagnosis Encephalopathy, Metabiloc Acidosis, pneu, Covid 19 PUI, FTT Current Diet No current Diet Labs/Tests BUN 55 Cr 1.5 Pertinent Medications LR 1L Levophed Fentanyl NS at 125 ml/hr Height 6 ft 2 in Weight 81.5 kg [place] Body Weight (kg) 86.36 BMI 23.1 Weight Status Appropriate Subjective/Other Information MD consult for nutritional intake. RN screen for MST, hx of chewing difficulty, and skin risk. Pt on mechanical vent with multiple pressure ulcers. Recommend initiating TF. Burn Absent Trauma Absent Difficulty In Swallowing,Chewing Skin Integrity/Comment Multiple pressure ulcer,1 infected Current % PO Negligible #1 Nutrition Diagnosis Inadequate oral intake Etiology pt unable to consume food via PO As Evidenced by Signs and Symptoms pt on mechanical vent Is patient on ventilator? Yes Is Patient Ambulatory and/or Out of Bed No REE-([facility]-confined to bed) [phone] Calculation Used for Recommendations [facility] Additional Notes protein needs:98 - 163g (1.2 - 2g/kgBW) Fluid needs 1 ml/kcal Nutrition Intervention Change Diet Order: TF when medically feasible Nutrition Support: Nepro at 50 ml/hr with a free water flush of 215 ml q4h Kcal 2,160 Protein (gm) 97 Fluid (mL) 1,362 Goal #1 Initiate TF regimen when medically feasible Anticipated Discharge Needs: unable to determine at this time Follow-Up By: 10/29/20 Additional Comments F/U for TF consult and vent status
[2020-10-27] MEDS: VANCOMYCIN 1,250 MG in SODIUM CHLORIDE 0.9% 250ML 250 ML IV SCH (20:30)
[2020-10-28] MEDS ORDERED: ADENOSINE 6 MG/2 ML INJ ONE (00:25)
[2020-10-28] MEDS ORDERED: ADENOSINE 6 MG/2 ML INJ IV ONE ×3 (00:26→00:41)
[2020-10-28] MEDS ORDERED: AMIODARONE 150 MG in DEXTROSE 5% IN WATER 97 ML IV ONE ×3 (00:43→13:46)
[2020-10-28] MEDS ORDERED: SODIUM CHLORIDE 0.9% 250ML 250 ML IV ONE (00:45)
[2020-10-28] MEDS: NORepinephrine/NS 4 MG-250 ML 4 MG/250 ML BAG IV SCH ×10 (00:54→23:55)
[2020-10-28 00:57] LABS: Hematocrit 23.7 % (35.5-45.6); Hemoglobin 7.5 gm/dl (11.8-15.2); Mean Corpuscular HGB Conc 32 % (32-34); Mean Corpuscular Volume 98 fl (84-94); Platelet Count 205 K/mm3 (140-440); Red Blood Count 2.42 M/mm3 (3.65-5.03); Red Cell Distribution Width 16.8 % (13.2-15.2)
[2020-10-28] MEDS: AMIODARONE 900 MG in DEXTROSE 5% IN WATER 482 ML IV SCH (01:05)
[2020-10-28] MEDS ORDERED: SODIUM BICARB 8.4% 50 MEQ/50 ML SYRINGE IV ONE ×4 (01:37→15:37)
--- NOTE | 2020-10-28 01:40 | Event Note ---
Date: 10/28/20 Called to see patient who has been on admission for multiple medical problems including sepsis, acute respiratory failure and Metabolic acidosis who had gone into SVT. Patient was given multiple rounds of adenosine 6 mg, 12 mg and a repeat 12 mg without good response. Patient subsequently started on Cardizem drip. We will place consult to cardiology for further evaluation. We will check stat labs and Monitor closely.
[2020-10-28] MEDS: dilTIAZem/D5W 100 MG/100 ML BAG IV SCH ×3 (01:41→05:44)
[2020-10-28 01:55] LABS: Alanine Aminotransferase 8 units/L (7-56); Albumin 1.2 g/dL (3.9-5); BUN/Creatinine Ratio 38; Blood Urea Nitrogen 49 mg/dL (9-20); Calcium 7.3 mg/dL (8.4-10.2); Hemolysis Index 1
[2020-10-28] MEDS ORDERED: MAGNESIUM SULFATE 1 GM in SODIUM CHLORIDE 0.9% 50 ML IV ONE (03:15)
[2020-10-28] MEDS ORDERED: SODIUM CHLORIDE 0.9% 500 ML 500 ML IV ONE (03:21)
[2020-10-28] MEDS: CEFEPIME/NS 2 GM/100 ML 2 GM/100 ML BAG IV SCH (05:39)
[2020-10-28] MEDS: metroNIDAZOLE/NS 500 MG/100 ML 500 MG/100 ML BAG IV SCH (05:39)
[2020-10-28 06:51] LABS: Calcium 7.7 mg/dL (8.4-10.2)
--- NOTE | 2020-10-28 07:25 | XRay Report ---
CHEST 1 VIEW INDICATION: follow up respiratory failure COMPARISON: One day prior. FINDINGS: Support devices: Unchanged. Heart: Stable. Lungs/Pleura: Mild bilateral lung disease, with a somewhat nodular component on the left, unchanged. No new disease. IMPRESSION: 1. No significant change. Signer Name: Bogdan Cheng MD Signed: 10/28/2020 7:21 AM Workstation Name: [id number]
[2020-10-28] MEDS: fentaNYL 100 MCG/2 ML INJ IV PRN ×2 (07:27→15:56)
[2020-10-28] MEDS: fentaNYL DRIP Premix 2,000 MCG/100 ML BAG IV SCH ×2 (07:35→23:26)
[2020-10-28] MEDS: FAMOTIDINE 20 MG/2 ML INJ IV SCH ×2 (09:05→21:30)
[2020-10-28] MEDS: HEPARIN 5,000 UNIT/1 ML VIAL SUB-Q SCH ×2 (09:05→21:45)
[2020-10-28] MEDS: SODIUM HYPOCHLORITE, DAKIN'S 1/2 STRENGTH (0.25%) 473 ML TOPICAL SOLN TP SCH ×2 (09:07→21:31)
--- NOTE | 2020-10-28 09:42 | Progress Note ---
Assessment and Plan 75 y/o male with acute respiratory failure secondary to sepsis from large sacral decub and likely urinary tract infection 10/28/20: Will address abx and changes if needed. Needs more volume, will bolus more fluids today. No immediate direct next of kin. Was raised by his cousin's parents. We are in the works to get their info placed as next of kin as they are his only family. will attempt to speak with them later today, if not will do first thing in the morning. IMS consulted cards overnight. Currently on dilt drip, but hypotensive on levophed. Will defer to them for further management but suggest evaluation for cardioversion. Needs repeat 12 lead EKG now that rate is better. Prognosis remains guarded. 1. AGree with broad spec abx therapy 2. Needs aggressive volume resuscitation. Check CVP and if low, bolus until goal of 10-12 3. Wean FiO2 as tolerated for sats >88% 4. Appreciate Surgery evaluation. Unfortunately, we have no next of kin listed as of right now. CM is working on this. 5. PRN pain medication 6. Overall prognosis is guarded to poor. Will need to discuss with family care home goals especially if multiple surgeries are needed for debridement. CCT 31 minutes. Subjective Date of service: 10/28/20 Interval history: Developed SVT overnight and was placed on a Dilt drip. HR still not controlled. CVP still reading only 6. Communication order placed to continue to bolus under my name until CVP 10-12. Patient now bacteremic, most likely from sacral wound. Objective Vital Signs - 12hr 10/27/20 10/27/20 10/27/20 21:40 21:50 22:00 Temperature Pulse Rate 96 H 102 H 102 H Pulse Rate [ From Monitor] Respiratory 29 H 27 H 26 H Rate Blood Pressure 99/48 91/50 101/54 O2 Sat by Pulse 100 100 100 Oximetry 10/27/20 10/27/20 10/27/20 22:10 22:20 22:30 Temperature Pulse Rate 102 H 100 H 101 H Pulse Rate [ From Monitor] Respiratory 28 H 26 H 27 H Rate Blood Pressure 101/54 107/52 103/53 O2 Sat by Pulse 100 100 100 Oximetry 10/27/20 10/27/20 10/27/20 22:39 22:40 22:50 Temperature Pulse Rate 99 H 101 H 103 H Pulse Rate [ From Monitor] Respiratory 28 H 29 H 28 H Rate Blood Pressure 103/53 103/53 104/54 O2 Sat by Pulse 100 100 100 Oximetry 10/27/20 10/27/20 10/27/20 22:57 23:00 23:01 Temperature Pulse Rate 102 H 101 H 102 H Pulse Rate [ From Monitor] Respiratory 29 H 8 L 7 L Rate Blood Pressure 104/54 97/51 97/51 O2 Sat by Pulse 100 100 100 Oximetry 10/27/20 10/27/20 10/27/20 23:10 23:19 23:20 Temperature Pulse Rate 101 H 105 H 100 H Pulse Rate [ From Monitor] Respiratory 29 H 29 H Rate Blood Pressure 104/54 99/56 99/56 O2 Sat by Pulse 100 100 100 Oximetry 10/27/20 10/27/20 10/27/20 23:30 23:40 23:47 Temperature 98 F Pulse Rate 101 H 100 H Pulse Rate [ From Monitor] Respiratory 28 H 29 H Rate Blood Pressure 99/53 99/53 O2 Sat by Pulse 100 100 Oximetry 10/27/20 10/28/20 10/28/20 23:50 00:00 00:10 Temperature Pulse Rate 102 H 93 H 128 H Pulse Rate [ 170 H From Monitor] Respiratory 29 H 26 H 26 H Rate Blood Pressure 92/44 95/51 95/51 O2 Sat by Pulse 100 100 100 Oximetry 10/28/20 10/28/20 10/28/20 00:20 00:30 00:40 Temperature Pulse Rate 184 H 161 H 207 H Pulse Rate [ From Monitor] Respiratory 29 H 23 24 Rate Blood Pressure 86/39 81/43 59/35 O2 Sat by Pulse 100 99 99 Oximetry 10/28/20 10/28/20 10/28/20 00:50 01:00 01:10 Temperature Pulse Rate 210 H 165 H 163 H Pulse Rate [ From Monitor] Respiratory 17 25 H 27 H Rate Blood Pressure 101/61 119/66 119/66 O2 Sat by Pulse 100 97 98 Oximetry 10/28/20 10/28/20 10/28/20 01:15 01:20 01:26 Temperature Pulse Rate 169 H 206 H 193 H Pulse Rate [ From Monitor] Respiratory 30 H 61 H 60 H Rate Blood Pressure 126/72 126/72 185/84 O2 Sat by Pulse 99 99 97 Oximetry 03/10/28/20 10/28/20 01:30 01:36 01:40 Temperature Pulse Rate 162 H 177 H 197 H Pulse Rate [ From Monitor] Respiratory 28 H 27 H 30 H Rate Blood Pressure 70/40 86/44 86/44 O2 Sat by Pulse 97 99 Oximetry 10/28/20 10/28/20 10/28/20 01:46 01:50 01:55 Temperature Pulse Rate 191 H 190 H 190 H Pulse Rate [ From Monitor] Respiratory 30 H 29 H 30 H Rate Blood Pressure 77/41 75/51 89/52 O2 Sat by Pulse 97 98 98 Oximetry 10/28/20 10/28/20 10/28/20 02:00 02:06 02:10 Temperature Pulse Rate 189 H 200 H 196 H Pulse Rate [ From Monitor] Respiratory 28 H 30 H 29 H Rate Blood Pressure 89/52 82/53 108/44 O2 Sat by Pulse 98 99 Oximetry 10/28/20 10/28/20 10/28/20 02:15 02:20 02:26 Temperature Pulse Rate 194 H 194 H 193 H Pulse Rate [ From Monitor] Respiratory 30 H 30 H 31 H Rate Blood Pressure 94/59 94/59 102/57 O2 Sat by Pulse 100 100 98 Oximetry 10/28/20 10/28/20 10/28/20 02:30 02:36 02:40 Temperature Pulse Rate 191 H 190 H 190 H Pulse Rate [ From Monitor] Respiratory 30 H 30 H 30 H Rate Blood Pressure 104/58 98/50 88/53 O2 Sat by Pulse 99 98 97 Oximetry 10/28/20 10/28/20 10/28/20 02:45 02:50 02:56 Temperature Pulse Rate 190 H 189 H 187 H Pulse Rate [ From Monitor] Respiratory 30 H 30 H 29 H Rate Blood Pressure 106/47 104/49 104/49 O2 Sat by Pulse Oximetry 10/28/20 10/28/20 10/28/20 03:00 03:06 03:10 Temperature Pulse Rate 161 H 149 H 139 H Pulse Rate [ From Monitor] Respiratory 28 H 30 H 30 H Rate Blood Pressure 95/54 101/49 101/49 O2 Sat by Pulse 99 99 98 Oximetry 10/28/20 10/28/20 10/28/20 03:15 03:20 03:22 Temperature 98.7 F Pulse Rate 141 H 134 H Pulse Rate [ From Monitor] Respiratory 30 H 30 H Rate Blood Pressure 99/46 99/53 O2 Sat by Pulse 97 Oximetry 10/28/20 10/28/20 10/28/20 03:26 03:30 03:36 Temperature Pulse Rate 129 H 135 H 108 H Pulse Rate [ From Monitor] Respiratory 30 H 29 H 29 H Rate Blood Pressure 99/53 106/53 106/53 O2 Sat by Pulse 92 Oximetry 10/28/20 10/28/20 10/28/20 03:40 03:45 03:50 Temperature Pulse Rate 121 H 107 H 114 H Pulse Rate [ From Monitor] Respiratory 29 H 30 H 31 H Rate Blood Pressure 106/53 106/54 106/54 O2 Sat by Pulse Oximetry 10/28/20 10/28/20 10/28/20 03:56 03:57 04:00 Temperature Pulse Rate 115 H 113 H 115 H Pulse Rate [ 113 H From Monitor] Respiratory 30 H 31 H Rate Blood Pressure 106/54 105/55 O2 Sat by Pulse Oximetry 10/28/20 10/28/20 10/28/20 04:06 04:10 04:15 Temperature Pulse Rate 108 H 116 H 111 H Pulse Rate [ From Monitor] Respiratory 30 H 30 H 30 H Rate Blood Pressure 105/55 105/55 92/54 O2 Sat by Pulse 96 97 Oximetry 10/28/20 10/28/20 10/28/20 04:20 04:26 04:30 Temperature Pulse Rate 112 H 126 H 138 H Pulse Rate [ From Monitor] Respiratory 31 H 31 H 30 H Rate Blood Pressure 92/54 92/54 94/50 O2 Sat by Pulse 97 96 Oximetry 10/28/20 10/28/20 10/28/20 04:36 04:40 04:45 Temperature Pulse Rate 127 H 149 H 138 H Pulse Rate [ From Monitor] Respiratory 31 H 30 H 31 H Rate Blood Pressure 94/50 94/50 103/56 O2 Sat by Pulse Oximetry 10/28/20 10/28/20 10/28/20 04:50 04:54 04:56 Temperature Pulse Rate 162 H 158 H 148 H Pulse Rate [ From Monitor] Respiratory 30 H 30 H Rate Blood Pressure 103/56 103/56 103/56 O2 Sat by Pulse 93 98 92 Oximetry 10/28/20 10/28/20 10/28/20 05:00 05:06 05:10 Temperature Pulse Rate 151 H 146 H 152 H Pulse Rate [ From Monitor] Respiratory 30 H 31 H 31 H Rate Blood Pressure 100/58 100/58 100/58 O2 Sat by Pulse 93 Oximetry 10/28/20 10/28/20 10/28/20 05:15 05:20 05:26 Temperature Pulse Rate 164 H 159 H 154 H Pulse Rate [ From Monitor] Respiratory 31 H 31 H 30 H Rate Blood Pressure 106/55 94/50 94/50 O2 Sat by Pulse Oximetry 10/28/20 10/28/20 10/28/20 05:30 05:36 05:40 Temperature Pulse Rate 155 H 155 H 118 H Pulse Rate [ From Monitor] Respiratory 31 H 32 H 30 H Rate Blood Pressure 99/51 99/51 99/51 O2 Sat by Pulse 92 96 Oximetry 10/28/20 10/28/20 10/28/20 05:45 05:50 05:56 Temperature Pulse Rate 121 H 128 H 127 H Pulse Rate [ From Monitor] Respiratory 30 H 31 H 31 H Rate Blood Pressure 107/54 107/54 107/54 O2 Sat by Pulse 94 94 93 Oximetry 10/28/20 10/28/20 10/28/20 06:00 06:06 06:10 Temperature Pulse Rate 125 H 127 H 121 H Pulse Rate [ From Monitor] Respiratory 30 H 30 H 31 H Rate Blood Pressure 105/54 105/54 105/54 O2 Sat by Pulse 95 94 93 Oximetry 10/28/20 10/28/20 10/28/20 06:15 06:20 06:26 Temperature Pulse Rate 120 H 127 H 121 H Pulse Rate [ From Monitor] Respiratory 32 H 31 H 30 H Rate Blood Pressure 110/56 110/56 110/56 O2 Sat by Pulse 93 93 95 Oximetry 10/28/20 10/28/20 10/28/20 06:30 06:36 06:40 Temperature Pulse Rate 120 H 131 H 119 H Pulse Rate [ From Monitor] Respiratory 30 H 30 H 31 H Rate Blood Pressure 105/54 105/54 105/54 O2 Sat by Pulse 95 93 94 Oximetry 10/28/20 10/28/20 10/28/20 06:45 06:50 06:56 Temperature Pulse Rate 140 H 149 H 111 H Pulse Rate [ From Monitor] Respiratory 32 H 32 H 30 H Rate Blood Pressure 106/53 106/53 106/53 O2 Sat by Pulse 95 94 96 Oximetry 10/28/20 10/28/20 10/28/20 07:00 07:06 07:10 Temperature Pulse Rate 114 H 113 H Pulse Rate [ From Monitor] Respiratory 29 H 31 H 37 H Rate Blood Pressure 108/56 108/56 108/56 O2 Sat by Pulse 94 95 96 Oximetry 10/28/20 10/28/20 10/28/20 07:15 07:20 07:26 Temperature Pulse Rate 113 H 113 H 118 H Pulse Rate [ From Monitor] Respiratory 12 21 34 H Rate Blood Pressure 110/59 110/59 110/59 O2 Sat by Pulse 97 96 98 Oximetry 10/28/20 10/28/20 10/28/20 07:30 07:36 07:40 Temperature Pulse Rate 114 H 115 H 115 H Pulse Rate [ From Monitor] Respiratory 21 28 H 29 H Rate Blood Pressure 109/64 109/64 109/64 O2 Sat by Pulse 98 98 98 Oximetry 10/28/20 10/28/20 10/28/20 07:45 07:50 07:56 Temperature Pulse Rate 112 H 114 H 116 H Pulse Rate [ From Monitor] Respiratory 28 H 30 H 29 H Rate Blood Pressure 103/63 103/63 103/63 O2 Sat by Pulse 99 99 99 Oximetry 10/28/20 10/28/20 10/28/20 08:00 08:06 08:10 Temperature 99.1 F Pulse Rate 113 H 113 H 115 H Pulse Rate [ From Monitor] Respiratory 28 H 29 H 28 H Rate Blood Pressure 102/62 102/62 102/62 O2 Sat by Pulse 99 99 100 Oximetry 10/28/20 10/28/20 10/28/20 08:15 08:20 08:26 Temperature Pulse Rate 119 H 115 H 113 H Pulse Rate [ From Monitor] Respiratory 28 H 28 H 28 H Rate Blood Pressure 104/65 104/65 104/65 O2 Sat by Pulse 99 99 100 Oximetry 10/28/20 10/28/20 10/28/20 08:30 08:36 08:40 Temperature Pulse Rate 116 H 116 H 117 H Pulse Rate [ From Monitor] Respiratory 28 H 28 H 28 H Rate Blood Pressure 106/61 106/61 106/61 O2 Sat by Pulse 99 100 100 Oximetry 10/28/20 10/28/20 10/28/20 08:45 08:50 08:56 Temperature Pulse Rate 115 H 118 H 115 H Pulse Rate [ From Monitor] Respiratory 22 28 H 28 H Rate Blood Pressure 105/64 105/64 105/64 O2 Sat by Pulse 99 100 99 Oximetry 10/28/20 10/28/20 10/28/20 09:00 09:06 09:10 Temperature Pulse Rate 118 H 116 H 115 H Pulse Rate [ From Monitor] Respiratory 28 H 28 H 26 H Rate Blood Pressure 101/62 101/62 101/62 O2 Sat by Pulse 99 100 99 Oximetry 10/28/20 10/28/20 10/28/20 09:15 09:20 09:26 Temperature Pulse Rate 115 H 115 H 116 H Pulse Rate [ From Monitor] Respiratory 27 H 27 H 28 H Rate Blood Pressure 100/60 100/60 100/60 O2 Sat by Pulse 99 99 100 Oximetry Constitutional: comatose Eyes: non-icteric ENT: other (orally intubated and sedated.) Neck: supple Effort: normal Ascultation: Bilateral: clear Percussion: Bilateral: not dull Cardiovascular: regular rate and rhythm Gastrointestinal: normoactive bowel sounds, soft, non-tender CBC and BMP: 10/28/20 00:40 10/28/20 05:36 ABG, PT/INR, D-dimer: ABG ABG pH 7.175 (7.320-7.450) L 10/28/20 03:30 POC ABG pCO2 37.2 mmHg (32.0-48.0) 10/28/20 03:30 ABG pCO2 39.5 mm Hg 10/26/20 17:30 POC ABG pO2 71.5 mmHg (83-108) L 10/28/20 03:30 ABG pO2 312.4 mm Hg (80.0-90.0) H 10/26/20 17:30 POC ABG HCO3 13.4 10/28/20 03:30 ABG O2 Saturation 91 (0-100) 10/28/20 03:30 Abnormal lab findings: Abnormal Labs 10/26/20 10/26/20 10/26/20 17:25 17:25 17:25 WBC 23.3 H RBC 3.10 L Hgb 9.6 L Hct 30.3 L MCV 98 H MCHC RDW 17.4 H Plt Count 521 H Seg Neuts % (Manual) 78.0 H Lymphocytes % (Manual) 11.0 L Seg Neutrophils # Man 18.2 H Monocytes # (Manual) 1.4 H ABG pH POC ABG pO2 ABG pO2 ABG HCO3 ABG O2 Saturation ABG Base Excess ABG Hemoglobin ABG Oxyhemoglobin ABG Potassium ABG Chloride ABG Glucose Carboxyhemoglobin Sodium 148 H Chloride 109.3 H Carbon Dioxide 19 L BUN 57 H Creatinine 1.5 H Glucose 151 H Lactic Acid 9.60 H* Calcium Magnesium Total Creatine Kinase Troponin T 0.062 H Total Protein Albumin 1.7 L Triglycerides 190 H LDL Cholesterol Direct 33 L HDL Cholesterol 18 L Arterial Blood Glucose Arterial Blood Ionized Calcium Urine pH Urine WBC (Auto) Salicylates Acetaminophen 10/26/20 10/26/20 10/26/20 17:28 17:28 17:28 WBC RBC Hgb Hct MCV MCHC RDW Plt Count Seg Neuts % (Manual) Lymphocytes % (Manual) Seg Neutrophils # Man Monocytes # (Manual) ABG pH POC ABG pO2 ABG pO2 ABG HCO3 ABG O2 Saturation ABG Base Excess ABG Hemoglobin ABG Oxyhemoglobin ABG Potassium ABG Chloride ABG Glucose Carboxyhemoglobin Sodium Chloride Carbon Dioxide BUN Creatinine Glucose Lactic Acid Calcium Magnesium Total Creatine Kinase 31 L Troponin T Total Protein Albumin Triglycerides LDL Cholesterol Direct HDL Cholesterol Arterial Blood Glucose Arterial Blood Ionized Calcium Urine pH Urine WBC (Auto) Salicylates < 0.3 L Acetaminophen 5.0 L 10/26/20 10/26/20 10/26/20 17:30 20:11 22:00 WBC RBC Hgb Hct MCV MCHC RDW Plt Count Seg Neuts % (Manual) Lymphocytes % (Manual) Seg Neutrophils # Man Monocytes # (Manual) ABG pH 7.235 L POC ABG pO2 ABG pO2 312.4 H ABG HCO3 16.4 L ABG O2 Saturation 99.5 H ABG Base Excess -10.4 L ABG Hemoglobin 11.0 L ABG Oxyhemoglobin ABG Potassium ABG Chloride ABG Glucose Carboxyhemoglobin Sodium Chloride Carbon Dioxide BUN Creatinine Glucose Lactic Acid 7.70 H* 6.40 H* Calcium Magnesium Total Creatine Kinase Troponin T Total Protein Albumin Triglycerides LDL Cholesterol Direct HDL Cholesterol Arterial Blood Glucose Arterial Blood Ionized Calcium Urine pH Urine WBC (Auto) Salicylates Acetaminophen 10/27/20 10/27/20 10/27/20 03:25 03:30 04:00 WBC 20.3 H RBC 3.10 L Hgb 9.6 L Hct 30.6 L MCV 99 H MCHC 31 L RDW 16.9 H Plt Count Seg Neuts % (Manual) Lymphocytes % (Manual) Seg Neutrophils # Man 11.6 H Monocytes # (Manual) ABG pH 7.218 L POC ABG pO2 62.9 L ABG pO2 ABG HCO3 ABG O2 Saturation ABG Base Excess ABG Hemoglobin 10.6 L ABG Oxyhemoglobin 86.6 L ABG Potassium 4.8 H ABG Chloride 114.0 H ABG Glucose 116 H Carboxyhemoglobin 0.4 L Sodium Chloride 110.2 H Carbon Dioxide 17 L BUN 55 H Creatinine 1.5 H Glucose 109 H Lactic Acid Calcium 7.9 L Magnesium Total Creatine Kinase Troponin T Total Protein Albumin 1.3 L Triglycerides LDL Cholesterol Direct HDL Cholesterol Arterial Blood Glucose 116 H Arterial Blood Ionized Calcium Urine pH Urine WBC (Auto) Salicylates Acetaminophen 10/27/20 10/28/20 10/28/20 Unknown 00:40 00:40 WBC 23.1 H RBC 2.42 L Hgb 7.5 L Hct 23.7 L D MCV 98 H MCHC RDW 16.8 H Plt Count Seg Neuts % (Manual) Lymphocytes % (Manual) Seg Neutrophils # Man Monocytes # (Manual) ABG pH POC ABG pO2 ABG pO2 ABG HCO3 ABG O2 Saturation ABG Base Excess ABG Hemoglobin ABG Oxyhemoglobin ABG Potassium ABG Chloride ABG Glucose Carboxyhemoglobin Sodium Chloride 111.4 H Carbon Dioxide 19 L BUN 49 H Creatinine Glucose Lactic Acid Calcium 7.3 L Magnesium 1.40 L Total Creatine Kinase Troponin T Total Protein 5.8 L Albumin 1.2 L Triglycerides LDL Cholesterol Direct HDL Cholesterol Arterial Blood Glucose Arterial Blood Ionized Calcium Urine pH 8.0 H Urine WBC (Auto) > 182.0 H Salicylates Acetaminophen 10/28/20 10/28/20 10/28/20 03:30 05:36 05:36 WBC RBC Hgb Hct MCV MCHC RDW Plt Count Seg Neuts % (Manual) Lymphocytes % (Manual) Seg Neutrophils # Man Monocytes # (Manual) ABG pH 7.175 L POC ABG pO2 71.5 L ABG pO2 ABG HCO3 ABG O2 Saturation ABG Base Excess ABG Hemoglobin 8.8 L ABG Oxyhemoglobin ABG Potassium 4.7 H ABG Chloride 114.0 H ABG Glucose 100 H Carboxyhemoglobin Sodium Chloride 114.6 H Carbon Dioxide 15 L BUN 48 H Creatinine 1.4 H Glucose Lactic Acid 7.60 H* Calcium 7.7 L Magnesium Total Creatine Kinase Troponin T Total Protein Albumin Triglycerides LDL Cholesterol Direct HDL Cholesterol Arterial Blood Glucose 100 H Arterial Blood Ionized Calcium 4.4 L Urine pH Urine WBC (Auto) Salicylates Acetaminophen
[2020-10-28] MEDS ORDERED: LACTATED RINGERS 2,000 ML IV SCH (11:15)
[2020-10-28] MEDS: ACETAMINOPHEN 325 MG TAB PO PRN (11:33)
[2020-10-28] MEDS ORDERED: SODIUM BICARBONATE 100 MEQ in WATER FOR INJECTION (PF) 1,000 ML IV SCH (12:00)
[2020-10-28] MEDS ORDERED: MAGNESIUM SULFATE 4 GM/100 ML BAG IV ONE (12:00)
--- NOTE | 2020-10-28 12:45 | Progress Note ---
Assessment and Plan Cultures: 10/26/2020 tracheal aspirate culture: Staph aureus 10/26/2020 blood culture: GNR A/P: 75-year-old male, custodial resident with seizure disorder, hypertension, depression, hyperlipidemia, chronic encephalopathy was sent to the hospital with worsening mental status: #Septic shock, GNR bacteremia: Multifactorial from infected sacral decubitus ulcer, bilateral pneumonia, UTI #Necrotic, infected sacral decubitus ulcer: Likely will need debridement. #UTI: UA with significant pyuria. #Bilateral pneumonia: Noted on CT. Possibly some aspiration. #FAZAL: Renally dose antibiotics. #Acute respiratory failure: on the vent. Recs: -switched Cefepime, Flagyl to Meropenem pending GNR identification -continue vancomycin -awaiting source control: debridement of necrotic sacral wound -Follow-up cultures -Overall, poor prognosis given underlying medical comorbidities. Palliative care/hospice would be appropriate Stephania Starr MD, FACP [facility] O: [phone] F: [phone] Subjective Date of service: 10/28/20 Interval history: Remains intubated, febrile, on pressors. Objective - Exam Narrative Exam: Physical Exam: Constitutional: sedated, intubated, on the vent Head, Ears, Nose: Normocephalic, atraumatic. External ears, nose normal Eyes: Conjunctivae/corneas clear. No icterus. No ptosis. Neck: intubated Oral: intubated Cardiovascular: S1, S2 + Respiratory: AE fair bilaterally and equal GI: Soft, bowel sounds + Musculoskeletal: Necrotic sacral decubitus ulcer present Skin: No rash or abscess Hem/Lymphatic: No palpable cervical or supraclavicular nodes. No lymphangitis Psych: no agitation Neurological: sedated, intubated, on the vent, exam limited - Constitutional Vitals: Vital Signs Temp Pulse Resp BP Pulse Ox 100.9 F H 114 H 26 H 91/59 99 10/28/20 12:00 10/28/20 11:49 10/28/20 10:45 10/28/20 11:49 10/28/20 11:49 Temperature -Last 24 Hours Temperature 100.9 F Temperature 99.1 F Temperature 98.7 F Temperature 98 F Temperature 99.5 F Temperature 99 F - Labs CBC & Chem 7: 10/28/20 00:40 10/28/20 05:36 Labs: Abnormal lab results 10/28/20 10/28/20 10/28/20 Range/Units 00:40 00:40 03:30 WBC 23.1 H (4.5-11.0) K/mm3 RBC 2.42 L (3.65-5.03) M/mm3 Hgb 7.5 L (11.8-15.2) gm/dl Hct 23.7 L D (35.5-45.6) % MCV 98 H (84-94) fl RDW 16.8 H (13.2-15.2) % ABG pH 7.175 L (7.320-7.450) POC ABG pO2 71.5 L (83-108) mmHg ABG Hemoglobin 8.8 L (12.0-17.5) ABG Potassium 4.7 H (3.40-4.50) mmol/L ABG Chloride 114.0 H (98-107) mmol/L ABG Glucose 100 H (65-95) mg/dL Chloride 111.4 H (98-107) mmol/L Carbon Dioxide 19 L (22-30) mmol/L BUN 49 H (9-20) mg/dL Creatinine (0.8-1.3) mg/dL Lactic Acid (0.7-2.0) mmol/L Calcium 7.3 L (8.4-10.2) mg/dL Magnesium 1.40 L (1.7-2.3) mg/dL Total Protein 5.8 L (6.3-8.2) g/dL Albumin 1.2 L (3.9-5) g/dL Arterial Blood Glucose 100 H (65-95) mg/dL Arterial Blood Ionized Calcium 4.4 L (4.6-5.3) mg/dL 10/28/20 10/28/20 Range/Units 05:36 05:36 WBC (4.5-11.0) K/mm3 RBC (3.65-5.03) M/mm3 Hgb (11.8-15.2) gm/dl Hct (35.5-45.6) % MCV (84-94) fl RDW (13.2-15.2) % ABG pH (7.320-7.450) POC ABG pO2 (83-108) mmHg ABG Hemoglobin (12.0-17.5) ABG Potassium (3.40-4.50) mmol/L ABG Chloride (98-107) mmol/L ABG Glucose (65-95) mg/dL Chloride 114.6 H (98-107) mmol/L Carbon Dioxide 15 L (22-30) mmol/L BUN 48 H (9-20) mg/dL Creatinine 1.4 H (0.8-1.3) mg/dL Lactic Acid 7.60 H* (0.7-2.0) mmol/L Calcium 7.7 L (8.4-10.2) mg/dL Magnesium (1.7-2.3) mg/dL Total Protein (6.3-8.2) g/dL Albumin (3.9-5) g/dL Arterial Blood Glucose (65-95) mg/dL Arterial Blood Ionized Calcium (4.6-5.3) mg/dL
[2020-10-28] MEDS ORDERED: LIPASE 10,500/PROTEASE 25,000/AMYLASE 43,750 (UNITS) DR CAP FEEDTUBE PRN (13:18)
[2020-10-28] MEDS ORDERED: SIMPLE SYRUP 15 ML FEEDTUBE PRN ×2 (13:18)
[2020-10-28] MEDS ORDERED: SODIUM BICARBONATE 325 MG TAB FEEDTUBE PRN (13:18)
[2020-10-28] MEDS: SODIUM BICARBONATE 150 MEQ in DEXTROSE 5% IN WATER 1,000 ML IV SCH (13:22)
--- NOTE | 2020-10-28 14:04 | Consultation ---
History of Present Illness Consult date: 10/28/20 Requesting physician: DALLIN SIDDIQUI Consult reason: arrhythmia History of present illness: The pt is a 75-year-old male assisted resident with a past medical history of seizure disorder, hypertension, depression, hyperlipidemia, chronic encephalopathy. He is intubated and sedated on evaluation and thus HPI is obtai nicole per the chart. Pt was sent to the hospital for evaluation of AMS. Following arrival, pt diagnosed with necrotic sacral ulcer which will likely need debridement, sepsis with septic shock requiring vasopressor support, UTI, bilateral PNA with acute respiratory failure requiring intubation, COVID-19 testing negative, anemia, FAZAL. Pt was reported to have SVT yesterday for which he received IV adenosine and cardiology was consulted. Review of telemetry shows apparent atrial fibrillation with RVR. On evaluation, pt remains in AFib with RVR HR 115 - 150s. He was initiated on cardizem gtt overnight which has not been effective per primary RN at bedside. Past History Past Medical History: other (unable to provide) Past Surgical History: Other (unable to provide) Social history: other (unable to provide) Family history: other (unable to provide) Medications and Allergies Allergies Allergy/AdvReac Type Severity Reaction Status Date / Time No Known Allergies Allergy Verified 01/10/19 02:20 Home Medications Medication Instructions Recorded Confirmed Last Taken Type Folic Acid [Folvite] 1 mg PO QDAY 01/10/19 08/14/20 Unknown History Primidone [Mysoline] 250 mg PO TID 01/10/19 08/14/20 Unknown History carBAMazepine [Carbamazepine] 200 mg PO TID 01/10/19 08/14/20 Unknown History Aspirin [Aspirin BABY CHEW TAB] 81 mg PO QDAY 08/15/20 08/15/20 Unknown History AtorvaSTATin [Lipitor] 40 mg PO QHS 08/15/20 08/15/20 Unknown History Citalopram Hydrobromide 20 mg PO QDAY 08/15/20 08/15/20 Unknown History [Citalopram HBr] Ergocalciferol [Vitamin D2] 1 cap PO QWEEK 08/15/20 08/15/20 Unknown History Folic Acid [Folvite] 1 mg PO QDAY 08/15/20 08/15/20 Unknown History Mirtazapine 7.5 mg PO QHS 08/15/20 08/15/20 Unknown History guaiFENesin ER [Mucinex ER] 600 mg PO Q12H 08/15/20 08/15/20 Unknown History Midodrine [Proamatine] 5 mg PO 0800,1200,1600 #90 tablet 09/02/20 Unknown Rx oxyCODONE /ACETAMINOPHEN [Percocet 1 tab PO Q6H PRN #14 tablet 09/02/20 Unknown Rx 5/325 mg] Active Meds: Active Medications Acetaminophen (Acetaminophen 325 Mg Tab) 650 mg PO Q4H PRN PRN Reason: Pain MILD(1-3)/Fever >100.5/TIERNEY Last Admin: 10/28/20 11:33 Dose: 650 mg Documented by: Lipase/Protease/Amylase (Lipase 10,500/Protease 25,000/Amylase 43,750 (Units) Dr Cap) 1 each FEEDTUBE PRN PRN PRN Reason: For Clogged Feeding Tube Famotidine (Famotidine 20 Mg/2 Ml Inj) 20 mg IV BID [facility] Last Admin: 10/28/20 09:05 Dose: 20 mg Documented by: Fentanyl (Fentanyl 100 Mcg/2 Ml Inj) 50 mcg IV Q10MIN PRN PRN Reason: ANALGESIA Fentanyl (Fentanyl 100 Mcg/2 Ml Inj) 50 mcg IV Q2H PRN PRN Reason: Pain , Severe (7-10) Last Admin: 10/28/20 07:27 Dose: 50 mcg Documented by: Heparin Sodium (Porcine) (Heparin 5,000 Unit/1 Ml Vial) 5,000 unit SUB-Q Q12HR [facility] Last Admin: 10/28/20 09:05 Dose: 5,000 unit Documented by: Hydrophilic Ointment (Lip Therapy Vaseline) 1 applic TP Q2HR PRN PRN Reason: Dry Lips Fentanyl Citrate (Fentanyl Drip Premix) 2,000 mcg in 100 mls @ 4.165 mls/hr IV TITR [facility]; Protocol Last Admin: 10/28/20 07:35 Dose: 1 mcg/kg/hr, 4.165 mls/hr Documented by: Vancomycin HCl 1,250 mg/ (Sodium Chloride) 275 mls @ 166.667 mls/hr IV Q24H [facility] Last Admin: 10/27/20 20:30 Dose: 166.667 mls/hr Documented by: Lactated Ringer's (Lactated Ringers) 1,000 mls @ 999 mls/hr IV DIRECT [facility] Stop: 10/28/20 18:46 Last Admin: 10/27/20 19:04 Dose: 999 mls/hr Documented by: Norepinephrine (Levophed Drip 4 Mg/Ns 250 Ml) 4 mg in 250 mls @ 112.5 mls/hr IV TITR [facility]; Protocol Last Admin: 10/28/20 11:34 Dose: 24 mcg/min, 90 mls/hr Documented by: Amiodarone HCl 900 mg/ (Dextrose) 500 mls @ 33.333 mls/hr IV DIRECT [facility]; Protocol Last Infusion: 10/28/20 01:40 Dose: 0 mg/min, 0 mls/hr Documented by: Sodium Bicarbonate 150 meq/ (Dextrose) 1,150 mls @ 100 mls/hr IV DIRECT [facility] Last Admin: 10/28/20 13:22 Dose: 100 mls/hr Documented by: Magnesium Sulfate (Magnesium Sulfate 4gm/100ml) 4 gm in 100 mls @ 25 mls/hr IV ONCE ONE Stop: 10/28/20 15:59 Last Admin: 10/28/20 11:46 Dose: 25 mls/hr Documented by: MEROPENEM/NS 1 GRAM/100 ML (Merrem/Ns 1 Gram/100 Ml) 1 gram in 100 mls @ 100 mls/hr IV Q8H [facility]; Protocol Multi-Ingred Cream/Lotion/Oil/Oint (Mineral Oil/Petrolatum, White Ophth Oint 3.5 Gm) 1 applic OU Q4HR PRN PRN Reason: Dry Eye(s) Ondansetron HCl (Ondansetron 4 Mg/2 Ml Inj) 4 mg IV Q8H PRN PRN Reason: Nausea And Vomiting Simple Syrup (Simple Syrup 15 Ml) 15 ml FEEDTUBE PRN PRN PRN Reason: Hypoglycemia Simple Syrup (Simple Syrup 15 Ml) 30 ml FEEDTUBE PRN PRN PRN Reason: Hypoglycemia Sodium Bicarbonate (Sodium Bicarbonate 325 Mg Tab) 325 mg FEEDTUBE PRN PRN PRN Reason: For Clogged Feeding Tube Sodium Chloride (Sodium Chloride 0.9% 500 Ml Ivpb) 5 ml IV DIRECT PRN PRN Reason: [employer] Sodium Chloride (Sodium Chloride 0.9% 10 Ml Flush Syringe) 10 ml IV BID [facility] Last Admin: 10/28/20 09:05 Dose: 10 ml Documented by: Sodium Chloride (Sodium Chloride 0.9% 10 Ml Flush Syringe) 10 ml IV PRN PRN PRN Reason: LINE FLUSH Sodium Hypochlorite (Sodium Hypochlorite, Dakin's 1/2 Strength (0.25%) 473 Ml Topical Soln) 1 applic TP BID [facility] Last Admin: 10/28/20 09:07 Dose: 1 applicatio Documented by: Review of Systems ROS unobtainable: due to endotracheal tube, due to mental status Physical Examination Vital Signs Pulse Resp Pulse Ox 128 H 41 H 99 10/26/20 16:36 10/26/20 16:36 10/26/20 16:36 General appearance: other (intubated, sedated) Cardiac: Positive: irregularly irregular, S1/S2, Tachycardia Lungs: Positive: Decreased Breath Sounds, Oxygen, Ventilated Respirations Abdomen: Negative: Tender Results 10/28/20 00:40 10/28/20 05:36 Cardiac Enzymes 10/28/20 Range/Units 00:40 AST 13 (5-40) units/L CBC 10/28/20 Range/Units 00:40 WBC 23.1 H (4.5-11.0) K/mm3 RBC 2.42 L (3.65-5.03) M/mm3 Hgb 7.5 L (11.8-15.2) gm/dl Hct 23.7 L D (35.5-45.6) % Plt Count 205 (140-440) K/mm3 Comprehensive Metabolic Panel 10/28/20 10/28/20 Range/Units 00:40 05:36 Sodium 141 145 (137-145) mmol/L Potassium 4.7 5.0 (3.6-5.0) mmol/L Chloride 111.4 H 114.6 H (98-107) mmol/L Carbon Dioxide 19 L 15 L (22-30) mmol/L BUN 49 H 48 H (9-20) mg/dL Creatinine 1.3 1.4 H (0.8-1.3) mg/dL Glucose 93 91 (75-100) mg/dL Calcium 7.3 L 7.7 L (8.4-10.2) mg/dL AST 13 (5-40) units/L ALT 8 (7-56) units/L Alkaline Phosphatase 70 (35-129) units/L Total Protein 5.8 L (6.3-8.2) g/dL Albumin 1.2 L (3.9-5) g/dL - Imaging and Cardiology Echo: pending EKG: report reviewed, image reviewed EKG interpretations - Telemetry EKG Rhythm: Atrial Fibrillation - EKG Supraventricular dysrhythmia: atrial fibrillation Assessment and Plan Optimize HR - d/c cardizem gtt and initiate IV amio. Wean vasopressors as tolerated. No systemic AC at this time in regards to AFib in setting of anemia and sacral ulcer which may require debridement in the near future. Obtain echo. Replete Mg and f/u CMP and Mg in AM. Cont supportive management. Will follow. The patient has been seen in conjunction with Dr. Lyndon Baldwin who agrees with the assessment and plan of care. - Patient Problems (1) AMS (altered mental status) Current Visit: Yes Status: Acute (2) Atrial fibrillation with RVR Current Visit: Yes Status: Acute (3) Acute respiratory failure Current Visit: Yes Status: Acute (4) Bilateral pneumonia Current Visit: Yes Status: Acute (5) Sepsis Current Visit: Yes Status: Acute (6) Sepsis associated hypotension Current Visit: Yes Status: Acute (7) Sacral decubitus ulcer, stage IV Current Visit: Yes Status: Acute (8) UTI (urinary tract infection) Current Visit: Yes Status: Acute (9) FAZAL (acute kidney injury) Current Visit: Yes Status: Acute (10) Hypomagnesemia Current Visit: Yes Status: Acute
[2020-10-28] MEDS: MEROPENEM/NS 1 GRAM/100 ML 1 GRAM/100 ML BAG IV SCH ×2 (14:13→21:31)
--- NOTE | 2020-10-28 15:00 | Progress Note ---
<HALIE PIERCE - Last Filed: 10/28/20 15:00> Assessment and Plan Assessment and plan: -Infectious disease, surgery, CCM, WOCN, cardiology consulted, appreciate recommendations -Antibiotic therapy -IV fluid boluses for goal CVP 10-12 -Trend CBC, BMP -Follow-up blood culture x2 and urine culture -VAP bundle, wean as tolerated -Amiodarone drip -Sodium bicarbonate drip GI/DVT prophylaxis: Heparin subcu, SCDs to bilateral legs while in bed, PPI Dispo: ICU The high probability of a clinically significant, sudden or life threatening deterioration of the [multi] system(s) required my full and direct attention, intervention and personal management. The aggregate critical care time was [40] minutes. This time is in addition to time spent performing reported procedures but includes the following: [x] Data Review and interpretation [x] Patient assessment and monitoring of vital signs [x] Documentation [x] Medication orders and management History Interval history: This is a 75-year-old male who is a alf resident with seizure disorder, hypertension, depression, hyperlipidemia, hypoglycemia, dysphagia, and encephalopathy who presents to the emergency department on 10/26 via EMS for tachypnea, dry mucous membranes and hypoxia. Patient was hypotensive, febrile to 103 degrees and hypoxic in the emergency department therefore he was intubated and central IV access was obtained. Patient received 3.5 L of IV fluid in the emergency department. Patient was admitted to the hospital service with consults to CCM, surgery, WOCN and ID for Sepsis, acute kidney injury, urinary tract infection, acute respiratory failure, electrolyte imbalances and bilateral pneumonia. Sepsis Acute respiratory failure Infected sacral wound UTI Bilateral pneumonia GNR bacteremia Acute kidney injury Leukocytosis Hyponatremia Hypochloremia Metabolic acidosis Elevated BUN/creatinine Lactic acidosis 10/27: Patient received additional 4 L LR for fluid resuscitation and CV m onitoring was initiated. Patient is on Levophed. ID added Flagyl to vancomycin and cefepime. His trach aspirate grew staph coccus aureus. At the time my examination patient the fentanyl drip was held by RN and he was on 14 MCG of Levophed. This morning he was on assist control 450/20/6/.100. We will give additional bolus of fluids with goal CVP 10-12 and repeat labs in AM. Surgery was consulted to possible debridement. 3/30: Overnight it was noted that patient went into SVT and he was given adenosine 6 mg/12 mg / 12 mg once and was started on a Cardizem drip after no response to amnio bolus and cardiology was consulted. Currently patient remains on Levophed drip and is hypotensive and received additional 2 L of bolus for goal CVP of 10-12. Infectious disease changed cefepime/Flagyl to meropenem for GNR in his blood cultures 09/04 and will continue vancomycin. Patient currently was not well controlled on max Cardizem and cardiology initiated amiodarone. Patient still is very tachycardic. Patient is hypomagnesemic and we will replete his Mg and recheck level. We will give the patient additional to complete resolve LR this afternoon. Patient has a standing order per [facility] to b olus the patient with LR for CVP goal of 10-12. This morning he is hyperchlormeic, metabolic acidotic (bicarb drip initiated) and his BUN/creatinine slightly elevated. Patient still remains lactic acidotic. Hospitalist Physical - Constitutional Vitals: Temp Pulse Resp BP Pulse Ox 100.9 F H 130 H 23 92/44 99 10/28/20 12:00 10/28/20 13:45 10/28/20 13:45 10/28/20 13:45 10/28/20 13:45 General appearance: Present: no acute distress, other (intubated, sedated) - EENT Eyes: Present: PERRL ENT: poor dentition - Neck Neck: Absent: masses or JVD - Respiratory Respiratory effort: normal - Cardiovascular Rhythm: regular Heart Sounds: Present: S1 & S2. Absent: systolic murmur, diastolic murmur - Extremities Extremities: no ischemia, pulses intact, pulses symmetrical, normal temperature, normal color Peripheral Pulses: within normal limits - Abdominal General gastrointestinal: soft, non-tender, non-distended - Integumentary Integumentary: Present: warm, dry - Psychiatric Psychiatric: other (sedated) - Neurologic Neurologic: other (sedated) - Allied Health Allied health notes reviewed: nursing, RT, social work HEART Score - HEART Score EKG: Non-specific Age: > 65 Risk factors: > 3 risk factors or hx of atherosclerotic disease Troponin: Troponin T 0.062 ng/mL (0.00-0.029) H 10/26/20 17:25 Troponin: < normal limit - Critical Actions Critical Actions: 4-6 pts:12-16.6% risk of adverse cardiac event. Should be admitted Results - Labs CBC & Chem 7: 10/28/20 00:40 10/28/20 05:36 Labs: Laboratory Last Values WBC 23.1 K/mm3 (4.5-11.0) H 10/28/20 00:40 RBC 2.42 M/mm3 (3.65-5.03) L 10/28/20 00:40 Hgb 7.5 gm/dl (11.8-15.2) L 10/28/20 00:40 Hct 23.7 % (35.5-45.6) L D 10/28/20 00:40 MCV 98 fl (84-94) H 10/28/20 00:40 MCH 31 pg (28-32) 10/28/20 00:40 MCHC 32 % (32-34) 10/28/20 00:40 RDW 16.8 % (13.2-15.2) H 10/28/20 00:40 Plt Count 205 K/mm3 (140-440) 10/28/20 00:40 Add Manual Diff Complete 10/27/20 03:30 Total Counted 100 10/27/20 03:30 Seg Neuts % (Manual) 57.0 % (40.0-70.0) 10/27/20 03:30 Band Neutrophils % 17.0 % 10/27/20 03:30 Lymphocytes % (Manual) 18.0 % (13.4-35.0) 10/27/20 03:30 Monocytes % (Manual) 2.0 % (0.0-7.3) 10/27/20 03:30 Eosinophils % (Manual) 2.0 % (0.0-4.3) 10/27/20 03:30 Metamyelocytes % 4.0 % 10/27/20 03:30 Nucleated RBC % Not Reportable 10/27/20 03:30 Seg Neutrophils # Man 11.6 K/mm3 (1.8-7.7) H 10/27/20 03:30 Band Neutrophils # 3.5 K/mm3 10/27/20 03:30 Lymphocytes # (Manual) 3.7 K/mm3 (1.2-5.4) 10/27/20 03:30 Abs React Lymphs (Man) 0.0 K/mm3 10/27/20 03:30 Monocytes # (Manual) 0.4 K/mm3 (0.0-0.8) 10/27/20 03:30 Eosinophils # (Manual) 0.4 K/mm3 (0.0-0.4) 10/27/20 03:30 Basophils # (Manual) 0.0 K/mm3 (0.0-0.1) 10/27/20 03:30 Metamyelocytes # 0.8 K/mm3 10/27/20 03:30 Myelocytes # 0.0 K/mm3 10/27/20 03:30 Promyelocytes # 0.0 K/mm3 10/27/20 03:30 Blast Cells # 0.0 K/mm3 10/27/20 03:30 WBC Morphology Not Reportable 10/27/20 03:30 Hypersegmented Neuts Not Reportable 10/27/20 03:30 Hyposegmented Neuts Not Reportable 10/27/20 03:30 Hypogranular Neuts Not Reportable 10/27/20 03:30 Smudge Cells Not Reportable 10/27/20 03:30 Toxic Granulation Not Reportable 10/27/20 03:30 Toxic Vacuolation Not Reportable 10/27/20 03:30 Dohle Bodies Not Reportable 10/27/20 03:30 Pelger-Huet Anomaly Not Reportable 10/27/20 03:30 Kassi Rods Not Reportable 10/27/20 03:30 Platelet Estimate Consistent w auto 10/27/20 03:30 Clumped Platelets Not Reportable 10/27/20 03:30 Plt Clumps, EDTA Not Reportable 10/27/20 03:30 Large Platelets Not Reportable 10/27/20 03:30 Giant Platelets Not Reportable 10/27/20 03:30 Platelet Satelliting Not Reportable 10/27/20 03:30 Plt Morphology Comment Not Reportable 10/27/20 03:30 RBC Morphology Not Reportable 10/27/20 03:30 Dimorphic RBCs Not Reportable 10/27/20 03:30 Polychromasia Not Reportable 10/27/20 03:30 Hypochromasia Few 10/27/20 03:30 Poikilocytosis Not Reportable 10/27/20 03:30 Anisocytosis Few 10/27/20 03:30 Microcytosis Not Reportable 10/27/20 03:30 Macrocytosis Not Reportable 10/27/20 03:30 Spherocytes Not Reportable 10/27/20 03:30 Pappenheimer Bodies Not Reportable 10/27/20 03:30 Sickle Cells Not Reportable 10/27/20 03:30 Target Cells Not Reportable 10/27/20 03:30 Tear Drop Cells Not Reportable 10/27/20 03:30 Ovalocytes Not Reportable 10/27/20 03:30 Helmet Cells Not Reportable 10/27/20 03:30 [place]-Laurel Bodies Not Reportable 10/27/20 03:30 Renick Rings Not Reportable 10/27/20 03:30 Rhea Cells Not Reportable 10/27/20 03:30 Bite Cells Not Reportable 10/27/20 03:30 Crenated Cell Not Reportable 10/27/20 03:30 Elliptocytes Not Reportable 10/27/20 03:30 Acanthocytes (Spur) Not Reportable 10/27/20 03:30 Rouleaux Not Reportable 10/27/20 03:30 Hemoglobin C Crystals Not Reportable 10/27/20 03:30 Schistocytes Not Reportable 10/27/20 03:30 Malaria parasites Not Reportable 10/27/20 03:30 Richard Bodies Not Reportable 10/27/20 03:30 Hem Pathologist Commnt No 10/27/20 03:30 APTT 27.9 Sec. (24.2-36.6) 10/26/20 17:25 ABG pH 7.175 (7.320-7.450) L 10/28/20 03:30 POC ABG pCO2 37.2 mmHg (32.0-48.0) 10/28/20 03:30 ABG pCO2 39.5 mm Hg 10/26/20 17:30 POC ABG pO2 71.5 mmHg (83-108) L 10/28/20 03:30 ABG pO2 312.4 mm Hg (80.0-90.0) H 10/26/20 17:30 POC ABG HCO3 13.4 10/28/20 03:30 ABG HCO3 16.4 mmol/L (20.0-26.0) L 10/26/20 17:30 ABG O2 Saturation 91 (0-100) 10/28/20 03:30 ABG O2 Content 15.9 (0.0-44) 10/26/20 17:30 POC ABG Base Excess -14 10/28/20 03:30 ABG Base Excess -10.4 mmol/L (-2.0-3.0) L 10/26/20 17:30 ABG Hemoglobin 8.8 (12.0-17.5) L 10/28/20 03:30 ABG Oxyhemoglobin 86.6 (94-98) L 10/27/20 03:25 ABG Carboxyhemoglobin 1.1 % (0.0-5.0) 10/26/20 17:30 ABG Methemoglobin 0.1 (0.0-1.5) 10/27/20 03:25 ABG Sodium 141.1 mmol/L (136.0-145.0) 10/28/20 03:30 ABG Potassium 4.7 mmol/L (3.40-4.50) H 10/28/20 03:30 ABG Chloride 114.0 mmol/L (98-107) H 10/28/20 03:30 ABG Glucose 100 mg/dL (65-95) H 10/28/20 03:30 Oxyhemoglobin 97.7 % (95.0-99.0) 10/26/20 17:30 Carboxyhemoglobin 0.4 (0.5-1.5) L 10/27/20 03:25 FiO2 100 % 10/26/20 17:30 FiO2 % 40 10/28/20 03:30 Sodium 145 mmol/L (137-145) 10/28/20 05:36 Potassium 5.0 mmol/L (3.6-5.0) 10/28/20 05:36 Chloride 114.6 mmol/L (98-107) H 10/28/20 05:36 Carbon Dioxide 15 mmol/L (22-30) L 10/28/20 05:36 Anion Gap 20 mmol/L 10/28/20 05:36 BUN 48 mg/dL (9-20) H 10/28/20 05:36 Creatinine 1.4 mg/dL (0.8-1.3) H 10/28/20 05:36 Estimated GFR 60 ml/min 10/28/20 05:36 BUN/Creatinine Ratio 34 % 10/28/20 05:36 Glucose 91 mg/dL (75-100) 10/28/20 05:36 POC Glucose 104 mg/dL (70-105) 10/28/20 11:19 Hemoglobin A1c 5.5 % (4-6) 10/27/20 04:42 Lactic Acid 7.60 mmol/L (0.7-2.0) H* 10/28/20 05:36 Calcium 7.7 mg/dL (8.4-10.2) L 10/28/20 05:36 Phosphorus 2.80 mg/dL (2.5-4.5) 10/28/20 00:40 Magnesium 1.40 mg/dL (1.7-2.3) L 10/28/20 00:40 Total Bilirubin 0.20 mg/dL (0.1-1.2) 10/28/20 00:40 AST 13 units/L (5-40) 10/28/20 00:40 ALT 8 units/L (7-56) 10/28/20 00:40 Alkaline Phosphatase 70 units/L (35-129) 10/28/20 00:40 Total Creatine Kinase 31 units/L (55-170) L 10/26/20 17:28 Troponin T 0.062 ng/mL (0.00-0.029) H 10/26/20 17:25 Total Protein 5.8 g/dL (6.3-8.2) L 10/28/20 00:40 Albumin 1.2 g/dL (3.9-5) L 10/28/20 00:40 Albumin/Globulin Ratio 0.3 % 10/28/20 00:40 Triglycerides 190 mg/dL (2-149) H 10/26/20 17:25 Cholesterol 92 mg/dL (50-199) 10/26/20 17:25 LDL Cholesterol Direct 33 mg/dL (50-130) L 10/26/20 17:25 HDL Cholesterol 18 mg/dL (40-59) L 10/26/20 17:25 Cholesterol/HDL Ratio 5.11 % 10/26/20 17:25 TSH 1.490 mlU/mL (0.270-4.200) 10/26/20 17:28 Arterial Blood Glucose 100 mg/dL (65-95) H 10/28/20 03:30 Arterial Blood Ionized Calcium 4.4 mg/dL (4.6-5.3) L 10/28/20 03:30 Urine Color Yellow (Yellow) 10/27/20 Unknown Urine Turbidity Turbid (Clear) 10/27/20 Unknown Urine pH 8.0 (5.0-7.0) H 10/27/20 Unknown Ur Specific [place] 1.020 (1.003-1.030) 10/27/20 Unknown Urine Protein >500 mg/dL (Negative) 10/27/20 Unknown Urine Glucose (UA) Neg mg/dL (Negative) 10/27/20 Unknown Urine Ketones Neg mg/dL (Negative) 10/27/20 Unknown Urine Blood Sm (Negative) 10/27/20 Unknown Urine Nitrite Neg (Negative) 10/27/20 Unknown Urine Bilirubin Neg (Negative) 10/27/20 Unknown Urine Urobilinogen < 2.0 mg/dL (<2.0) 10/27/20 Unknown Ur Leukocyte Esterase Mod (Negative) 10/27/20 Unknown Urine WBC (Auto) > 182.0 /HPF (0.0-6.0) H 10/27/20 Unknown Urine RBC (Auto) 35.0 /HPF (0.0-6.0) 10/27/20 Unknown Urine WBC Clumps 3+ /HPF 10/27/20 Unknown Urine Mucus 3+ /HPF 10/27/20 Unknown Urine Yeast (Budding) 3+ /HPF 10/27/20 Unknown Salicylates < 0.3 mg/dL (2.8-20.0) L 10/26/20 17:28 Acetaminophen 5.0 ug/mL (10.0-30.0) L 10/26/20 17:28 Coronavirus (PCR) Negative (Negative) 10/27/20 Unknown Microbiology: Microbiology 10/26/20 Unknown Peripheral/Venous Blood Culture - Preliminary 10/26/20 Unknown Peripheral/Venous Blood Culture - Preliminary 10/26/20 19:40 Tracheal Aspirate Sputum Culture - Preliminary Staphylococcus Aureus Rivas/IV: Voiding Method Indwelling Catheter Active Medications - Current Medications Current Medications: Generic Name Dose Route Start Last Admin Trade Name Freq PRN Reason Stop Dose Admin Acetaminophen 650 mg 10/26/20 22:22 10/28/20 11:33 Acetaminophen 325 Mg Tab PO 650 mg Q4H PRN Administration Pain MILD(1-3)/Fever >100.5/TIERNEY Lipase/Protease/Amylase 1 each 10/28/20 13:18 Lipase 10,500/Protease 25,000/Amylase 43,750 (Units) Dr Cap FEEDTUBE PRN PRN For Clogged Feeding Tube Famotidine 20 mg 10/28/20 10:00 10/28/20 09:05 Famotidine 20 Mg/2 Ml Inj IV 20 mg BID MARSHALL Administration Fentanyl 50 mcg 10/26/20 17:25 Fentanyl 100 Mcg/2 Ml Inj IV Q10MIN PRN ANALGESIA Fentanyl 50 mcg 10/27/20 10:39 10/28/20 07:27 Fentanyl 100 Mcg/2 Ml Inj IV 50 mcg Q2H PRN Administration Pain , Severe (7-10) Heparin Sodium (Porcine) 5,000 unit 10/26/20 22:45 10/28/20 09:05 Heparin 5,000 Unit/1 Ml Vial SUB-Q 5,000 unit Q12HR MARSHALL Administration Hydrophilic Ointment 1 applic 10/26/20 17:25 Lip Therapy Vaseline TP Q2HR PRN Dry Lips Fentanyl Citrate 2,000 mcg in 100 mls @ 4.165 mls/hr 10/26/20 18:00 10/28/20 07:35 Fentanyl Drip Premix IV 1 mcg/kg/hr TITR MARSHALL 4.165 mls/hr Administration Protocol 1 MCG/KG/HR Vancomycin HCl 1,250 mg/ 275 mls @ 166.667 mls/hr 10/27/20 20:00 10/27/20 20:30 Sodium Chloride IV 166.667 mls/hr Q24H MARSHALL Administration Lactated Ringer's 1,000 mls @ 999 mls/hr 10/27/20 17:45 10/27/20 19:04 Lactated Ringers IV 10/28/20 18:46 999 mls/hr DIRECT MARSHALL Administration Norepinephrine 4 mg in 250 mls @ 112.5 mls/hr 10/28/20 01:00 10/28/20 11:34 Levophed Drip 4 Mg/Ns 250 Ml IV 24 mcg/min TITR MARSHALL 90 mls/hr Administration Protocol 30 MCG/MIN Amiodarone HCl 900 mg/ 500 mls @ 33.333 mls/hr 10/28/20 01:00 10/28/20 01:40 Dextrose IV 0 mg/min DIRECT MARSHALL 0 mls/hr Infusion Protocol 1 MG/MIN Sodium Bicarbonate 150 meq/ 1,150 mls @ 100 mls/hr 10/28/20 12:00 10/28/20 13:22 Dextrose IV 100 mls/hr DIRECT MARSHALL Administration Magnesium Sulfate 4 gm in 100 mls @ 25 mls/hr 10/28/20 12:00 10/28/20 11:46 Magnesium Sulfate 4gm/100ml IV 10/28/20 15:59 25 mls/hr ONCE ONE Administration MEROPENEM/NS 1 GRAM/100 ML 1 gram in 100 mls @ 100 mls/hr 10/28/20 14:00 10/28/20 14:13 Merrem/Ns 1 Gram/100 Ml IV 100 mls/hr Q8H MARSHALL Administration Protocol Lactated Ringer's 1,000 mls @ 999 mls/hr 10/28/20 15:00 Lactated Ringers IV 10/29/20 16:01 BOLUS MARSHALL Multi-Ingred Cream/Lotion/Oil/Oint 1 applic 10/26/20 17:25 Mineral Oil/Petrolatum, White Ophth Oint 3.5 Gm OU Q4HR PRN Dry Eye(s) Ondansetron HCl 4 mg 10/26/20 22:22 Ondansetron 4 Mg/2 Ml Inj IV Q8H PRN Nausea And Vomiting Simple Syrup 15 ml 10/28/20 13:18 Simple Syrup 15 Ml FEEDTUBE PRN PRN Hypoglycemia Simple Syrup 30 ml 10/28/20 13:18 Simple Syrup 15 Ml FEEDTUBE PRN PRN Hypoglycemia Sodium Bicarbonate 325 mg 10/28/20 13:18 Sodium Bicarbonate 325 Mg Tab FEEDTUBE PRN PRN For Clogged Feeding Tube Sodium Chloride 5 ml 10/26/20 17:25 Sodium Chloride 0.9% 500 Ml Ivpb IV DIRECT PRN ARTERIAL DIRECTOR OF MUSIC Sodium Chloride 10 ml 10/27/20 10:00 10/28/20 09:05 Sodium Chloride 0.9% 10 Ml Flush Syringe IV 10 ml BID MARSHALL Administration Sodium Chloride 10 ml 10/26/20 22:22 Sodium Chloride 0.9% 10 Ml Flush Syringe IV PRN PRN LINE FLUSH Sodium Hypochlorite 1 applic 10/28/20 10:00 10/28/20 09:07 Sodium Hypochlorite, Dakin's 1/2 Strength (0.25%) 473 Ml Topical Soln TP 1 applicatio BID MARSHALL Administration Nutrition/Malnutrition Assess - Dietary Evaluation Nutrition/Malnutrition Findings: Nutrition Notes Start: 10/27/20 09:15 Freq: Status: Active Protocol: Document 10/28/20 12:48 CW (Rec: 10/28/20 12:56 CW [email or web address]) Nutrition Notes Need for Assessment generated from: MD Order Initial or Follow up Assessment Current Diagnosis Acute Kidney Injury,Decubitus( Pressure Ulcer),Sepsis, Hypertension,Respiratory Failure,Hyperlipidemia Other Pertinent Diagnosis Encephalopathy, Metabiloc Acidosis, pneu, Covid 19 PUI, FTT Current Diet No current Diet Labs/Tests BUN 48 Cr 1.4 Pertinent Medications Levophed LR 1L Height 6 ft 2 in Weight 105.8 kg [place] Body Weight (kg) 86.36 BMI 29.9 Weight change and time frame 23% weight change; likely d/t error in combination with BLE edema Weight Status Appropriate Subjective/Other Information MD consult for TF. SHERIFF OFFICER reported BLE nonpitting edema during rounds today. TF to start at trickle feed per SHERIFF OFFICER. Pt remains on mechanical vent. Unsure of true weight at this time. Will base needs on previous weight until weight increase is confirmed. Based on based visits, weight tends to fluctuate often. Percent of energy/protein needs met: 0%/0% Burn Absent Trauma Absent Difficulty In Swallowing,Chewing Skin Integrity/Comment Multiple pressure ulcer,1 infected Current % PO Negligible Minimum of two criteria No Fluid Accumulation Mild (non-severe) #1 Nutrition Diagnosis Inadequate oral intake Diagnosis Progress(for reassessment Continues documentation) Is patient on ventilator? Yes Is Patient Ambulatory and/or Out of Bed No REE-(Cascilla-St. Jeor-confined to bed) [phone] Calculation Used for Recommendations [facility] Additional Notes protein needs:98 - 163g (1.2 - 2g/kgBW) Fluid needs 1 ml/kcal Nutrition Intervention Change Diet Order: TF Nutrition Support: Nepro at 50 ml/hr with a free water flush of 215 ml q4h Kcal 2,160 Protein (gm) 97 Fluid (mL) 1,362 Goal #1 Initiate TF regimen Anticipated Discharge Needs: unable to determine at this time Follow-Up By: 10/30/20 Additional Comments F/U for TF at goal and vent status <OKEH,CHARLIE Althea - Last Filed: 10/29/20 07:19> Assessment and Plan Assessment and plan: I saw and evaluated the patient. I agree with the findings and the plan of care as documented in the Nurse Practitioner's~note, with the following corrections and additions. Hospitalist Physical - Constitutional Vitals: Temp Pulse Resp BP Pulse Ox 98.9 F 133 H 38 H 115/65 100 10/29/20 04:00 10/29/20 06:00 10/29/20 06:00 10/29/20 06:00 10/29/20 06:00 HEART Score - HEART Score Troponin: Troponin T 0.062 ng/mL (0.00-0.029) H 10/26/20 17:25 Results - Labs CBC & Chem 7: 10/29/20 05:15 10/29/20 05:15 Labs: Laboratory Last Values WBC 23.9 K/mm3 (4.5-11.0) H 10/29/20 05:15 RBC 2.66 M/mm3 (3.65-5.03) L 10/29/20 05:15 Hgb 8.3 gm/dl (11.8-15.2) L 10/29/20 05:15 Hct 26.3 % (35.5-45.6) L 10/29/20 05:15 MCV 99 fl (84-94) H 10/29/20 05:15 MCH 31 pg (28-32) 10/29/20 05:15 MCHC 32 % (32-34) 10/29/20 05:15 RDW 17.5 % (13.2-15.2) H 10/29/20 05:15 Plt Count 168 K/mm3 (140-440) 10/29/20 05:15 Add Manual Diff Complete 10/27/20 03:30 Total Counted 100 10/27/20 03:30 Seg Neuts % (Manual) 57.0 % (40.0-70.0) 10/27/20 03:30 Band Neutrophils % 17.0 % 10/27/20 03:30 Lymphocytes % (Manual) 18.0 % (13.4-35.0) 10/27/20 03:30 Monocytes % (Manual) 2.0 % (0.0-7.3) 10/27/20 03:30 Eosinophils % (Manual) 2.0 % (0.0-4.3) 10/27/20 03:30 Metamyelocytes % 4.0 % 10/27/20 03:30 Nucleated RBC % Not Reportable 10/27/20 03:30 Seg Neutrophils # Man 11.6 K/mm3 (1.8-7.7) H 10/27/20 03:30 Band Neutrophils # 3.5 K/mm3 10/27/20 03:30 Lymphocytes # (Manual) 3.7 K/mm3 (1.2-5.4) 10/27/20 03:30 Abs React Lymphs (Man) 0.0 K/mm3 10/27/20 03:30 Monocytes # (Manual) 0.4 K/mm3 (0.0-0.8) 10/27/20 03:30 Eosinophils # (Manual) 0.4 K/mm3 (0.0-0.4) 10/27/20 03:30 Basophils # (Manual) 0.0 K/mm3 (0.0-0.1) 10/27/20 03:30 Metamyelocytes # 0.8 K/mm3 10/27/20 03:30 Myelocytes # 0.0 K/mm3 10/27/20 03:30 Promyelocytes # 0.0 K/mm3 10/27/20 03:30 Blast Cells # 0.0 K/mm3 10/27/20 03:30 WBC Morphology Not Reportable 10/27/20 03:30 Hypersegmented Neuts Not Reportable 10/27/20 03:30 Hyposegmented Neuts Not Reportable 10/27/20 03:30 Hypogranular Neuts Not Reportable 10/27/20 03:30 Smudge Cells Not Reportable 10/27/20 03:30 Toxic Granulation Not Reportable 10/27/20 03:30 Toxic Vacuolation Not Reportable 10/27/20 03:30 Dohle Bodies Not Reportable 10/27/20 03:30 Pelger-Huet Anomaly Not Reportable 10/27/20 03:30 Kassi Rods Not Reportable 10/27/20 03:30 Platelet Estimate Consistent w auto 10/27/20 03:30 Clumped Platelets Not Reportable 10/27/20 03:30 Plt Clumps, EDTA Not Reportable 10/27/20 03:30 Large Platelets Not Reportable 10/27/20 03:30 Giant Platelets Not Reportable 10/27/20 03:30 Platelet Satelliting Not Reportable 10/27/20 03:30 Plt Morphology Comment Not Reportable 10/27/20 03:30 RBC Morphology Not Reportable 10/27/20 03:30 Dimorphic RBCs Not Reportable 10/27/20 03:30 Polychromasia Not Reportable 10/27/20 03:30 Hypochromasia Few 10/27/20 03:30 Poikilocytosis Not Reportable 10/27/20 03:30 Anisocytosis Few 10/27/20 03:30 Microcytosis Not Reportable 10/27/20 03:30 Macrocytosis Not Reportable 10/27/20 03:30 Spherocytes Not Reportable 10/27/20 03:30 Pappenheimer Bodies Not Reportable 10/27/20 03:30 Sickle Cells Not Reportable 10/27/20 03:30 Target Cells Not Reportable 10/27/20 03:30 Tear Drop Cells Not Reportable 10/27/20 03:30 Ovalocytes Not Reportable 10/27/20 03:30 Helmet Cells Not Reportable 10/27/20 03:30 [place]-Laurel Bodies Not Reportable 10/27/20 03:30 Renick Rings Not Reportable 10/27/20 03:30 Rhea Cells Not Reportable 10/27/20 03:30 Bite Cells Not Reportable 10/27/20 03:30 Crenated Cell Not Reportable 10/27/20 03:30 Elliptocytes Not Reportable 10/27/20 03:30 Acanthocytes (Spur) Not Reportable 10/27/20 03:30 Rouleaux Not Reportable 10/27/20 03:30 Hemoglobin C Crystals Not Reportable 10/27/20 03:30 Schistocytes Not Reportable 10/27/20 03:30 Malaria parasites Not Reportable 10/27/20 03:30 Richard Bodies Not Reportable 10/27/20 03:30 Hem Pathologist Commnt No 10/27/20 03:30 APTT 27.9 Sec. (24.2-36.6) 10/26/20 17:25 ABG pH 7.350 (7.320-7.450) 10/29/20 03:50 POC ABG pCO2 30.0 mmHg (32.0-48.0) L 10/29/20 03:50 ABG pCO2 39.5 mm Hg 10/26/20 17:30 POC ABG pO2 83.4 mmHg (83-108) 10/29/20 03:50 ABG pO2 312.4 mm Hg (80.0-90.0) H 10/26/20 17:30 POC ABG HCO3 16.2 10/29/20 03:50 ABG HCO3 16.4 mmol/L (20.0-26.0) L 10/26/20 17:30 ABG O2 Saturation 95.8 (0-100) 10/29/20 03:50 ABG O2 Content 15.9 (0.0-44) 10/26/20 17:30 POC ABG Base Excess -8.5 10/29/20 03:50 ABG Base Excess -10.4 mmol/L (-2.0-3.0) L 10/26/20 17:30 ABG Hemoglobin 8.1 (12.0-17.5) L 10/29/20 03:50 ABG Oxyhemoglobin 95.3 (94-98) 10/29/20 03:50 ABG Carboxyhemoglobin 1.1 % (0.0-5.0) 10/26/20 17:30 ABG Methemoglobin 0.1 (0.0-1.5) 10/29/20 03:50 ABG Sodium 142.1 mmol/L (136.0-145.0) 10/29/20 03:50 ABG Potassium 3.9 mmol/L (3.40-4.50) 10/29/20 03:50 ABG Chloride 113.0 mmol/L (98-107) H 10/29/20 03:50 ABG Glucose 153 mg/dL (65-95) H 10/29/20 03:50 Oxyhemoglobin 97.7 % (95.0-99.0) 10/26/20 17:30 Carboxyhemoglobin 0.4 (0.5-1.5) L 10/29/20 03:50 FiO2 100 % 10/26/20 17:30 FiO2 % 40 10/29/20 03:50 Sodium 145 mmol/L (137-145) 10/29/20 05:15 Potassium 4.0 mmol/L (3.6-5.0) 10/29/20 05:15 Chloride 110.4 mmol/L (98-107) H 10/29/20 05:15 Carbon Dioxide 15 mmol/L (22-30) L 10/29/20 05:15 Anion Gap 24 mmol/L 10/29/20 05:15 BUN 40 mg/dL (9-20) H 10/29/20 05:15 Creatinine 1.0 mg/dL (0.8-1.3) 10/29/20 05:15 Estimated GFR > 60 ml/min 10/29/20 05:15 BUN/Creatinine Ratio 40 % 10/29/20 05:15 Glucose 140 mg/dL (75-100) H 10/29/20 05:15 POC Glucose 123 mg/dL (70-105) H 10/29/20 05:09 Hemoglobin A1c 5.5 % (4-6) 10/27/20 04:42 Lactic Acid 7.60 mmol/L (0.7-2.0) H* 10/28/20 05:36 Calcium 7.0 mg/dL (8.4-10.2) L 10/29/20 05:15 Phosphorus 2.80 mg/dL (2.5-4.5) 10/28/20 00:40 Magnesium 2.10 mg/dL (1.7-2.3) 10/29/20 05:15 Total Bilirubin 0.20 mg/dL (0.1-1.2) 10/29/20 05:15 AST 14 units/L (5-40) 10/29/20 05:15 ALT 12 units/L (7-56) 10/29/20 05:15 Alkaline Phosphatase 98 units/L (35-129) 10/29/20 05:15 Total Creatine Kinase 31 units/L (55-170) L 10/26/20 17:28 Troponin T 0.062 ng/mL (0.00-0.029) H 10/26/20 17:25 Total Protein 6.0 g/dL (6.3-8.2) L 10/29/20 05:15 Albumin 1.0 g/dL (3.9-5) L 10/29/20 05:15 Albumin/Globulin Ratio 0.2 % 10/29/20 05:15 Triglycerides 190 mg/dL (2-149) H 10/26/20 17:25 Cholesterol 92 mg/dL (50-199) 10/26/20 17:25 LDL Cholesterol Direct 33 mg/dL (50-130) L 10/26/20 17:25 HDL Cholesterol 18 mg/dL (40-59) L 10/26/20 17:25 Cholesterol/HDL Ratio 5.11 % 10/26/20 17:25 TSH 1.490 mlU/mL (0.270-4.200) 10/26/20 17:28 Arterial Blood Glucose 153 mg/dL (65-95) H 10/29/20 03:50 Arterial Blood Ionized Calcium 4.1 mg/dL (4.6-5.3) L 10/29/20 03:50 Urine Color Yellow (Yellow) 10/27/20 Unknown Urine Turbidity Turbid (Clear) 10/27/20 Unknown Urine pH 8.0 (5.0-7.0) H 10/27/20 Unknown Ur Specific [place] 1.020 (1.003-1.030) 10/27/20 Unknown Urine Protein >500 mg/dL (Negative) 10/27/20 Unknown Urine Glucose (UA) Neg mg/dL (Negative) 10/27/20 Unknown Urine Ketones Neg mg/dL (Negative) 10/27/20 Unknown Urine Blood Sm (Negative) 10/27/20 Unknown Urine Nitrite Neg (Negative) 10/27/20 Unknown Urine Bilirubin Neg (Negative) 10/27/20 Unknown Urine Urobilinogen < 2.0 mg/dL (<2.0) 10/27/20 Unknown Ur Leukocyte Esterase Mod (Negative) 10/27/20 Unknown Urine WBC (Auto) > 182.0 /HPF (0.0-6.0) H 10/27/20 Unknown Urine RBC (Auto) 35.0 /HPF (0.0-6.0) 10/27/20 Unknown Urine WBC Clumps 3+ /HPF 10/27/20 Unknown Urine Mucus 3+ /HPF 10/27/20 Unknown Urine Yeast (Budding) 3+ /HPF 10/27/20 Unknown Salicylates < 0.3 mg/dL (2.8-20.0) L 10/26/20 17:28 Acetaminophen 5.0 ug/mL (10.0-30.0) L 10/26/20 17:28 Coronavirus (PCR) Negative (Negative) 10/27/20 Unknown Rivas/IV: Voiding Method Indwelling Catheter Active Medications - Current Medications Current Medications: Generic Name Dose Route Start Last Admin Trade Name Freq PRN Reason Stop Dose Admin Acetaminophen 650 mg 10/26/20 22:22 10/28/20 11:33 Acetaminophen 325 Mg Tab PO 650 mg Q4H PRN Administration Pain MILD(1-3)/Fever >100.5/TIERNEY Lipase/Protease/Amylase 1 each 10/28/20 13:18 Lipase 10,500/Protease 25,000/Amylase 43,750 (Units) Dr Cap FEEDTUBE PRN PRN For Clogged Feeding Tube Famotidine 20 mg 10/28/20 10:00 10/28/20 21:30 Famotidine 20 Mg/2 Ml Inj IV 20 mg BID MARSHALL Administration Fentanyl 50 mcg 10/26/20 17:25 Fentanyl 100 Mcg/2 Ml Inj IV Q10MIN PRN ANALGESIA Fentanyl 50 mcg 10/27/20 10:39 10/28/20 15:56 Fentanyl 100 Mcg/2 Ml Inj IV 50 mcg Q2H PRN Administration Pain , Severe (7-10) Heparin Sodium (Porcine) 5,000 unit 10/26/20 22:45 10/28/20 21:45 Heparin 5,000 Unit/1 Ml Vial SUB-Q 5,000 unit Q12HR MARSHALL Administration Hydrophilic Ointment 1 applic 10/26/20 17:25 Lip Therapy Vaseline TP Q2HR PRN Dry Lips Fentanyl Citrate 2,000 mcg in 100 mls @ 4.165 mls/hr 10/26/20 18:00 10/28/20 23:26 Fentanyl Drip Premix IV 1 mcg/kg/hr TITR MARSHALL 4.165 mls/hr Administration Protocol 1 MCG/KG/HR Vancomycin HCl 1,250 mg/ 275 mls @ 166.667 mls/hr 10/27/20 20:00 10/28/20 19:27 Sodium Chloride IV 166.667 mls/hr Q24H MARSHALL Administration Norepinephrine 4 mg in 250 mls @ 112.5 mls/hr 10/28/20 01:00 10/29/20 05:35 Levophed Drip 4 Mg/Ns 250 Ml IV 21 mcg/min TITR MARSHALL 78.75 mls/hr Administration Protocol 30 MCG/MIN Amiodarone HCl 900 mg/ 500 mls @ 33.333 mls/hr 10/28/20 01:00 10/29/20 03:15 Dextrose IV 1 mg/min DIRECT MARSHALL 33.333 mls/hr Administration Protocol 1 MG/MIN Sodium Bicarbonate 150 meq/ 1,150 mls @ 100 mls/hr 10/28/20 12:00 10/28/20 13:22 Dextrose IV 100 mls/hr DIRECT MARSHALL Administration MEROPENEM/NS 1 GRAM/100 ML 1 gram in 100 mls @ 100 mls/hr 10/28/20 14:00 10/29/20 05:01 Merrem/Ns 1 Gram/100 Ml IV 100 mls/hr Q8H MARSHALL Administration Protocol Lactated Ringer's 1,000 mls @ 999 mls/hr 10/28/20 15:00 10/28/20 17:25 Lactated Ringers IV 10/29/20 16:01 999 mls/hr BOLUS MARSHALL Administration Vasopressin 20 unit/ Sodium 101 mls @ 9.09 mls/hr 10/28/20 16:00 Chloride IV TITR MARSHALL Protocol 0.03 UNITS/MIN Multi-Ingred Cream/Lotion/Oil/Oint 1 applic 10/26/20 17:25 Mineral Oil/Petrolatum, White Ophth Oint 3.5 Gm OU Q4HR PRN Dry Eye(s) Ondansetron HCl 4 mg 10/26/20 22:22 Ondansetron 4 Mg/2 Ml Inj IV Q8H PRN Nausea And Vomiting Simple Syrup 15 ml 10/28/20 13:18 Simple Syrup 15 Ml FEEDTUBE PRN PRN Hypoglycemia Simple Syrup 30 ml 10/28/20 13:18 Simple Syrup 15 Ml FEEDTUBE PRN PRN Hypoglycemia Sodium Bicarbonate 325 mg 10/28/20 13:18 Sodium Bicarbonate 325 Mg Tab FEEDTUBE PRN PRN For Clogged Feeding Tube Sodium Chloride 5 ml 10/26/20 17:25 Sodium Chloride 0.9% 500 Ml Ivpb IV DIRECT PRN ARTERIAL DIRECTOR OF MUSIC Sodium Chloride 10 ml 10/27/20 10:00 10/28/20 21:31 Sodium Chloride 0.9% 10 Ml Flush Syringe IV 10 ml BID MARSHALL Administration Sodium Chloride 10 ml 10/26/20 22:22 Sodium Chloride 0.9% 10 Ml Flush Syringe IV PRN PRN LINE FLUSH Sodium Hypochlorite 1 applic 10/28/20 10:00 10/28/20 21:31 Sodium Hypochlorite, Dakin's 1/2 Strength (0.25%) 473 Ml Topical Soln TP 1 applicatio BID MARSHALL Administration Nutrition/Malnutrition Assess - Dietary Evaluation Nutrition/Malnutrition Findings: Nutrition Notes Start: 10/27/20 09:15 Freq: Status: Active Protocol: Document 10/28/20 12:48 CW (Rec: 10/28/20 12:56 CW [id number]) Nutrition Notes Need for Assessment generated from: MD Order Initial or Follow up Assessment Current Diagnosis Acute Kidney Injury,Decubitus( Pressure Ulcer),Sepsis, Hypertension,Respiratory Failure,Hyperlipidemia Other Pertinent Diagnosis Encephalopathy, Metabiloc Acidosis, pneu, Covid 19 PUI, FTT Current Diet No current Diet Labs/Tests BUN 48 Cr 1.4 Pertinent Medications Levophed LR 1L Height 6 ft 2 in Weight 105.8 kg [place] Body Weight (kg) 86.36 BMI 29.9 Weight change and time frame 23% weight change; likely d/t error in combination with BLE edema Weight Status Appropriate Subjective/Other Information MD consult for TF. SHERIFF OFFICER reported BLE nonpitting edema during rounds today. TF to start at trickle feed per SHERIFF OFFICER. Pt remains on mechanical vent. Unsure of true weight at this time. Will base needs on previous weight until weight increase is confirmed. Based on based visits, weight tends to fluctuate often. Percent of energy/protein needs met: 0%/0% Burn Absent Trauma Absent Difficulty In Swallowing,Chewing Skin Integrity/Comment Multiple pressure ulcer,1 infected Current % PO Negligible Minimum of two criteria No Fluid Accumulation Mild (non-severe) #1 Nutrition Diagnosis Inadequate oral intake Diagnosis Progress(for reassessment Continues documentation) Is patient on ventilator? Yes Is Patient Ambulatory and/or Out of Bed No REE-([facility]-confined to bed) [phone] Calculation Used for Recommendations [facility] Additional Notes protein needs:98 - 163g (1.2 - 2g/kgBW) Fluid needs 1 ml/kcal Nutrition Intervention Change Diet Order: TF Nutrition Support: Nepro at 50 ml/hr with a free water flush of 215 ml q4h Kcal 2,160 Protein (gm) 97 Fluid (mL) 1,362 Goal #1 Initiate TF regimen Anticipated Discharge Needs: unable to determine at this time Follow-Up By: 10/30/20 Additional Comments F/U for TF at goal and vent status
[2020-10-28] MEDS: LACTATED RINGERS 1,000 ML IV SCH ×3 (15:24→17:25)
[2020-10-28] MEDS ORDERED: VASOPRESSIN 20 UNIT in SODIUM CHLORIDE 0.9% 100 ML IV SCH (16:00)
[2020-10-28] MEDS: VANCOMYCIN 1,250 MG in SODIUM CHLORIDE 0.9% 250ML 250 ML IV SCH (19:27)
[2020-10-29] MEDS: NORepinephrine/NS 4 MG-250 ML 4 MG/250 ML BAG IV SCH ×5 (02:37→18:37)
[2020-10-29] MEDS: AMIODARONE 900 MG in DEXTROSE 5% IN WATER 482 ML IV SCH ×2 (03:15→18:30)
[2020-10-29] MEDS: MEROPENEM/NS 1 GRAM/100 ML 1 GRAM/100 ML BAG IV SCH (05:01)
[2020-10-29 05:51] LABS: Hematocrit 26.3 % (35.5-45.6); Hemoglobin 8.3 gm/dl (11.8-15.2); Mean Corpuscular HGB Conc 32 % (32-34); Mean Corpuscular Volume 99 fl (84-94); Platelet Count 168 K/mm3 (140-440); Red Blood Count 2.66 M/mm3 (3.65-5.03); Red Cell Distribution Width 17.5 % (13.2-15.2)
--- NOTE | 2020-10-29 06:13 | XRay Report ---
CHEST 1 VIEW INDICATION: follow up respiratory failure COMPARISON: One day prior. FINDINGS: Support devices: Unchanged. Heart: Stable. Lungs/Pleura: Left mid and lower lung parenchymal disease has worsened slightly. Right-sided disease is unchanged. IMPRESSION: 1. Slight worsening. Signer Name: Bogdan Cheng MD Signed: 10/29/2020 6:08 AM Workstation Name: [id number]
[2020-10-29 06:22] LABS: Alanine Aminotransferase 12 units/L (7-56); BUN/Creatinine Ratio 40; Blood Urea Nitrogen 40 mg/dL (9-20); Hemolysis Index 14
[2020-10-29] MEDS: SODIUM BICARBONATE 150 MEQ in DEXTROSE 5% IN WATER 1,000 ML IV SCH ×2 (08:05→20:10)
[2020-10-29] MEDS: ACETAMINOPHEN 325 MG TAB PO PRN (08:05)
[2020-10-29] MEDS: LACTATED RINGERS 1,000 ML IV SCH ×9 (08:29→18:34)
--- NOTE | 2020-10-29 08:41 | Electrocardiograph Report ---
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
[2020-10-29] MEDS: FAMOTIDINE 20 MG/2 ML INJ IV SCH ×2 (10:01→21:12)
[2020-10-29] MEDS: HEPARIN 5,000 UNIT/1 ML VIAL SUB-Q SCH ×2 (10:01→21:11)
[2020-10-29] MEDS: SODIUM HYPOCHLORITE, DAKIN'S 1/2 STRENGTH (0.25%) 473 ML TOPICAL SOLN TP SCH ×2 (10:10→21:08)
--- NOTE | 2020-10-29 11:14 | Progress Note ---
Assessment and Plan tte reviewed - EF 55-60%, no significant abnormalities. Optimize HR - cont IV amio @ 1mg/min and give additional IV amio bolus today. initiate IV digoxin. Wean vasopressors as tolerated. No systemic AC at this time in regards to AFib in setting of anemia and sacral ulcer which may require debridement in the near future. Cont supportive management. The patient has been seen in conjunction with Dr. Lyndon Baldwin who agrees with the assessment and plan of care. - Patient Problems (1) AMS (altered mental status) Current Visit: Yes Status: Acute (2) Atrial fibrillation with RVR Current Visit: Yes Status: Acute (3) Acute respiratory failure Current Visit: Yes Status: Acute (4) Bilateral pneumonia Current Visit: Yes Status: Acute (5) Sepsis Current Visit: Yes Status: Acute (6) Sepsis associated hypotension Current Visit: Yes Status: Acute (7) Sacral decubitus ulcer, stage IV Current Visit: Yes Status: Acute (8) UTI (urinary tract infection) Current Visit: Yes Status: Acute (9) FAZAL (acute kidney injury) Current Visit: Yes Status: Acute (10) Hypomagnesemia Current Visit: Yes Status: Acute Subjective Date of service: 10/29/20 Principal diagnosis: sepsis Interval history: pt remains intubated, sedated. tele reviewed - in AFib HR 120s with RVR HR max 150s overnight. amio gtt infusing. levophed gtt infusing. Objective Last Vital Signs Temp 100.9 F H 10/29/20 08:00 Pulse 133 H 10/29/20 10:59 Resp 14 10/29/20 10:45 BP 111/65 10/29/20 10:59 Pulse Ox 100 10/29/20 10:59 - Physical Examination General: Other (intubated, sedated) Cardiac: Positive: irregularly irregular, S1/S2, Tachycardia Lungs: Positive: Decreased Breath Sounds, Oxygen, Ventilated Respirations Neuro: Positive: Other (intubated, sedated) Abdomen: Negative: Tender - Labs and Meds Cardiac Enzymes 10/29/20 Range/Units 05:15 AST 14 (5-40) units/L CBC 10/29/20 Range/Units 05:15 WBC 23.9 H (4.5-11.0) K/mm3 RBC 2.66 L (3.65-5.03) M/mm3 Hgb 8.3 L (11.8-15.2) gm/dl Hct 26.3 L (35.5-45.6) % Plt Count 168 (140-440) K/mm3 Comprehensive Metabolic Panel 10/29/20 Range/Units 05:15 Sodium 145 (137-145) mmol/L Potassium 4.0 (3.6-5.0) mmol/L Chloride 110.4 H (98-107) mmol/L Carbon Dioxide 15 L (22-30) mmol/L BUN 40 H (9-20) mg/dL Creatinine 1.0 (0.8-1.3) mg/dL Glucose 140 H (75-100) mg/dL Calcium 7.0 L (8.4-10.2) mg/dL AST 14 (5-40) units/L ALT 12 (7-56) units/L Alkaline Phosphatase 98 (35-129) units/L Total Protein 6.0 L (6.3-8.2) g/dL Albumin 1.0 L (3.9-5) g/dL - Imaging and Cardiology EKG: report reviewed, image reviewed Echo: pending
[2020-10-29] MEDS ORDERED: AMIODARONE 150 MG in DEXTROSE 5% IN WATER 97 ML IV ONE (11:30)
[2020-10-29] MEDS: DIGOXIN 0.5 MG/2 ML INJ IV SCH ×2 (12:01→18:27)
--- NOTE | 2020-10-29 12:04 | Progress Note ---
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 #UTI: UA with significant pyuria. #Bilateral pneumonia: Noted on CT. Possibly some aspiration. #FAZAL: Renally dose antibiotics. #Acute respiratory failure: on the vent. Recs: -Proteus is susceptible, de-escalated meropenem to Ceftriaxone + Flagyl -continue vancomycin till Staph aureus susceptibility available -persistent sepsis and shock likely to due lack of source control. If patient is not going to be palliative care/hospice, then will need debridement -Overall, poor prognosis given underlying medical comorbidities. Palliative care/hospice would be appropriate Stephania Starr MD, FACP [facility] O: [phone] F: [phone] Subjective Date of service: 10/29/20 Principal diagnosis: sepsis Interval history: Remains intubated, low grade fever, remains on pressors. Objective - Exam Narrative Exam: Physical Exam: Constitutional: sedated, intubated, on the vent Head, Ears, Nose: Normocephalic, atraumatic. External ears, nose normal Eyes: Conjunctivae/corneas clear. No icterus. No ptosis. Neck: intubated Oral: intubated Cardiovascular: S1, S2 + Respiratory: AE fair bilaterally and equal GI: Soft, bowel sounds + Musculoskeletal: Necrotic sacral decubitus ulcer present with dressing Skin: No rash or abscess Hem/Lymphatic: No palpable cervical or supraclavicular nodes. No lymphangitis Psych: no agitation Neurological: sedated, intubated, on the vent, exam limited - Constitutional Vitals: Vital Signs Temp Pulse Resp BP Pulse Ox 100.9 F H 121 H 14 108/70 100 10/29/20 08:00 10/29/20 12:01 10/29/20 10:45 10/29/20 12:01 10/29/20 10:59 Temperature -Last 24 Hours Temperature 100.9 F Temperature 98.9 F Temperature 98.0 F Temperature 97.7 F Temperature 99.2 F - Labs CBC & Chem 7: 10/29/20 05:15 10/29/20 05:15 Labs: Abnormal lab results 10/28/20 10/28/20 10/29/20 Range/Units 17:18 23:18 03:50 WBC (4.5-11.0) K/mm3 RBC (3.65-5.03) M/mm3 Hgb (11.8-15.2) gm/dl Hct (35.5-45.6) % MCV (84-94) fl RDW (13.2-15.2) % POC ABG pCO2 30.0 L (32.0-48.0) mmHg ABG Hemoglobin 8.1 L (12.0-17.5) ABG Chloride 113.0 H (98-107) mmol/L ABG Glucose 153 H (65-95) mg/dL Carboxyhemoglobin 0.4 L (0.5-1.5) Chloride (98-107) mmol/L Carbon Dioxide (22-30) mmol/L BUN (9-20) mg/dL Glucose (75-100) mg/dL POC Glucose 134 H 149 H (70-105) mg/dL Lactic Acid (0.7-2.0) mmol/L Calcium (8.4-10.2) mg/dL Total Protein (6.3-8.2) g/dL Albumin (3.9-5) g/dL Arterial Blood Glucose 153 H (65-95) mg/dL Arterial Blood Ionized Calcium 4.1 L (4.6-5.3) mg/dL 10/29/20 10/29/20 10/29/20 Range/Units 05:09 05:15 05:15 WBC 23.9 H (4.5-11.0) K/mm3 RBC 2.66 L (3.65-5.03) M/mm3 Hgb 8.3 L (11.8-15.2) gm/dl Hct 26.3 L (35.5-45.6) % MCV 99 H (84-94) fl RDW 17.5 H (13.2-15.2) % POC ABG pCO2 (32.0-48.0) mmHg ABG Hemoglobin (12.0-17.5) ABG Chloride (98-107) mmol/L ABG Glucose (65-95) mg/dL Carboxyhemoglobin (0.5-1.5) Chloride 110.4 H (98-107) mmol/L Carbon Dioxide 15 L (22-30) mmol/L BUN 40 H (9-20) mg/dL Glucose 140 H (75-100) mg/dL POC Glucose 123 H (70-105) mg/dL Lactic Acid (0.7-2.0) mmol/L Calcium 7.0 L (8.4-10.2) mg/dL Total Protein 6.0 L (6.3-8.2) g/dL Albumin 1.0 L (3.9-5) g/dL Arterial Blood Glucose (65-95) mg/dL Arterial Blood Ionized Calcium (4.6-5.3) mg/dL 10/29/20 10/29/20 Range/Units 05:15 10:37 WBC (4.5-11.0) K/mm3 RBC (3.65-5.03) M/mm3 Hgb (11.8-15.2) gm/dl Hct (35.5-45.6) % MCV (84-94) fl RDW (13.2-15.2) % POC ABG pCO2 (32.0-48.0) mmHg ABG Hemoglobin (12.0-17.5) ABG Chloride (98-107) mmol/L ABG Glucose (65-95) mg/dL Carboxyhemoglobin (0.5-1.5) Chloride (98-107) mmol/L Carbon Dioxide (22-30) mmol/L BUN (9-20) mg/dL Glucose (75-100) mg/dL POC Glucose (70-105) mg/dL Lactic Acid 9.90 H* 10.90 H* (0.7-2.0) mmol/L Calcium (8.4-10.2) mg/dL Total Protein (6.3-8.2) g/dL Albumin (3.9-5) g/dL Arterial Blood Glucose (65-95) mg/dL Arterial Blood Ionized Calcium (4.6-5.3) mg/dL
[2020-10-29] MEDS: cefTRIAXone/NS 2 GM/100 ML 2 GM/100 ML BAG IV SCH (13:58)
[2020-10-29] MEDS: metroNIDAZOLE/NS 500 MG/100 ML 500 MG/100 ML BAG IV SCH ×2 (14:05→21:13)
--- NOTE | 2020-10-29 14:06 | Progress Note ---
<HALIE PIERCE - Last Filed: 10/29/20 14:21> Assessment and Plan Assessment and plan: -Infectious disease, surgery, CCM, WOCN, cardiology consulted, appreciate recommendations -Antibiotic therapy -IV fluid boluses for goal CVP 10-12 -Trend CBC, BMP -Proteus bacteremia, MRSA pneumonia -VAP bundle, wean as tolerated -Amiodarone drip, IV digoxin -Sodium bicarbonate drip GI/DVT prophylaxis: Heparin subcu, SCDs to bilateral legs while in bed, PPI Dispo: ICU The high probability of a clinically significant, sudden or life threatening deterioration of the [multi] system(s) required my full and direct attention, intervention and personal management. The aggregate critical care time was [35] minutes. This time is in addition to time spent performing reported procedures but includes the following: [x] Data Review and interpretation [x] Patient assessment and monitoring of vital signs [x] Documentation [x] Medication orders and management History Interval history: This is a 75-year-old male who is a longterm resident with seizure disorder, hypertension, depression, hyperlipidemia, hypoglycemia, dysphagia, and encephalopathy who presents to the emergency department on 10/26 via EMS for tachypnea, dry mucous membranes and hypoxia. Patient was hypotensive, febrile to 103 degrees and hypoxic in the emergency department therefore he was intubated and central IV access was obtained. Patient received 3.5 L of IV fluid in the emergency department. Patient was admitted to the hospital service with consults to CCM, surgery, WOCN and ID for Sepsis, acute kidney injury, urinary tract infection, acute respiratory failure, electrolyte imbalances and bilateral pneumonia. Sepsis Acute respiratory failure Infected sacral wound Proteus bacteremia MRSA pneumonia Urine tract infection Acute kidney injury Leukocytosis Hyperchloremia Metabolic acidosis Acute kidney injury Lactic acidosis 10/27: Patient received additional 4 L LR for fluid resuscitation and CV monitoring was initiated. Patient is on Levophed. ID added Flagyl to vancomycin and cefepime. His trach aspirate grew staph coccus aureus. At the time my examination patient the fentanyl drip was held by RN and he was on 14 MCG of Levophed. This morning he was on assist control 450/20/6/.100. We will give additional bolus of fluids with goal CVP 10-12 and repeat labs in AM. Surgery was consulted to possible debridement. 10/28: Overnight it was noted that patient went into SVT and he was given adenosine 6 mg/12 mg / 12 mg once and was started on a Cardizem drip after no response to amnio bolus and cardiology was consulted. Currently patient remains on Levophed drip and is hypotensive and received additional 2 L of bolus for goal CVP of 10-12. Infectious disease changed cefepime/Flagyl to meropenem for GNR in his blood cultures 09/04 and will continue vancomycin. Patient currently was not well controlled on max Cardizem and cardiology initiated amiodarone. Patient still is very tachycardic. Patient is hypomagnesemic and we will replete his Mg and recheck level. We will give the patient additional to complete resolve LR this afternoon. Patient has a standing order per [facility] to bolus the patient with LR for CVP goal of 10-12. This morning he is hyperchlormeic, metabolic acidotic (bicarb drip initiated) and his BUN/creatinine slightly elevated. Patient still remains lactic acidotic. 10/29: Patient's blood culture speciated to Proteus and his tracheal aspirate is MRSA. He is currently on ceftriaxone, Flagyl and vancomycin. Patient heart rate consistently is 110-150s and cardiology has given him an amiodarone bolus today and he remains on amiodarone drip. He looks much started on IV digoxin. This morning 4 L LR bolus was ordered and we will bolus an additional 4 L of LR this afternoon. Patient still has lactic acidosis, metabolic acidosis, leukocytosis and hyperchloremia. On examination this morning patient is more edematous and he remains on Levophed and amnio drip. Sedated with fentanyl on assist control 450/20/6/0.40 Hospitalist Physical - Constitutional Vitals: Temp Pulse Resp BP Pulse Ox 99.0 F 121 H 14 108/70 100 10/29/20 12:00 10/29/20 12:01 10/29/20 10:45 10/29/20 12:10/29/20 10:59 General appearance: Present: no acute distress, other (intubated, sedated) - EENT ENT: poor dentition - Neck Neck: Absent: masses or JVD - Respiratory Respiratory effort: normal Respiratory: bilateral: diminished - Cardiovascular Rhythm: regular Heart Sounds: Present: S1 & S2. Absent: systolic murmur, diastolic murmur - Extremities Extremities: no ischemia, pulses intact, pulses symmetrical, normal temperature, normal color Peripheral Pulses: within normal limits - Abdominal General gastrointestinal: soft, non-tender, non-distended, normal bowel sounds - Integumentary Integumentary: Present: warm, dry - Psychiatric Psychiatric: other (sedated) - Neurologic Neurologic: other (sedated) - Allied Health Allied health notes reviewed: nursing, RT, social work HEART Score - HEART Score EKG: Non-specific Age: > 65 Risk factors: > 3 risk factors or hx of atherosclerotic disease Troponin: Troponin T 0.062 ng/mL (0.00-0.029) H 10/26/20 17:25 Troponin: < normal limit - Critical Actions Critical Actions: 4-6 pts:12-16.6% risk of adverse cardiac event. Should be admitted Results - Labs CBC & Chem 7: 10/29/20 05:15 10/29/20 05:15 Labs: Laboratory Last Values WBC 23.9 K/mm3 (4.5-11.0) H 10/29/20 05:15 RBC 2.66 M/mm3 (3.65-5.03) L 10/29/20 05:15 Hgb 8.3 gm/dl (11.8-15.2) L 10/29/20 05:15 Hct 26.3 % (35.5-45.6) L 10/29/20 05:15 MCV 99 fl (84-94) H 10/29/20 05:15 MCH 31 pg (28-32) 10/29/20 05:15 MCHC 32 % (32-34) 10/29/20 05:15 RDW 17.5 % (13.2-15.2) H 10/29/20 05:15 Plt Count 168 K/mm3 (140-440) 10/29/20 05:15 Add Manual Diff Complete 10/27/20 03:30 Total Counted 100 10/27/20 03:30 Seg Neuts % (Manual) 57.0 % (40.0-70.0) 10/27/20 03:30 Band Neutrophils % 17.0 % 10/27/20 03:30 Lymphocytes % (Manual) 18.0 % (13.4-35.0) 10/27/20 03:30 Monocytes % (Manual) 2.0 % (0.0-7.3) 10/27/20 03:30 Eosinophils % (Manual) 2.0 % (0.0-4.3) 10/27/20 03:30 Metamyelocytes % 4.0 % 10/27/20 03:30 Nucleated RBC % Not Reportable 10/27/20 03:30 Seg Neutrophils # Man 11.6 K/mm3 (1.8-7.7) H 10/27/20 03:30 Band Neutrophils # 3.5 K/mm3 10/27/20 03:30 Lymphocytes # (Manual) 3.7 K/mm3 (1.2-5.4) 10/27/20 03:30 Abs React Lymphs (Man) 0.0 K/mm3 10/27/20 03:30 Monocytes # (Manual) 0.4 K/mm3 (0.0-0.8) 10/27/20 03:30 Eosinophils # (Manual) 0.4 K/mm3 (0.0-0.4) 10/27/20 03:30 Basophils # (Manual) 0.0 K/mm3 (0.0-0.1) 10/27/20 03:30 Metamyelocytes # 0.8 K/mm3 10/27/20 03:30 Myelocytes # 0.0 K/mm3 10/27/20 03:30 Promyelocytes # 0.0 K/mm3 10/27/20 03:30 Blast Cells # 0.0 K/mm3 10/27/20 03:30 WBC Morphology Not Reportable 10/27/20 03:30 Hypersegmented Neuts Not Reportable 10/27/20 03:30 Hyposegmented Neuts Not Reportable 10/27/20 03:30 Hypogranular Neuts Not Reportable 10/27/20 03:30 Smudge Cells Not Reportable 10/27/20 03:30 Toxic Granulation Not Reportable 10/27/20 03:30 Toxic Vacuolation Not Reportable 10/27/20 03:30 Dohle Bodies Not Reportable 10/27/20 03:30 Pelger-Huet Anomaly Not Reportable 10/27/20 03:30 Kassi Rods Not Reportable 10/27/20 03:30 Platelet Estimate Consistent w auto 10/27/20 03:30 Clumped Platelets Not Reportable 10/27/20 03:30 Plt Clumps, EDTA Not Reportable 10/27/20 03:30 Large Platelets Not Reportable 10/27/20 03:30 Giant Platelets Not Reportable 10/27/20 03:30 Platelet Satelliting Not Reportable 10/27/20 03:30 Plt Morphology Comment Not Reportable 10/27/20 03:30 RBC Morphology Not Reportable 10/27/20 03:30 Dimorphic RBCs Not Reportable 10/27/20 03:30 Polychromasia Not Reportable 10/27/20 03:30 Hypochromasia Few 10/27/20 03:30 Poikilocytosis Not Reportable 10/27/20 03:30 Anisocytosis Few 10/27/20 03:30 Microcytosis Not Reportable 10/27/20 03:30 Macrocytosis Not Reportable 10/27/20 03:30 Spherocytes Not Reportable 10/27/20 03:30 Pappenheimer Bodies Not Reportable 10/27/20 03:30 Sickle Cells Not Reportable 10/27/20 03:30 Target Cells Not Reportable 10/27/20 03:30 Tear Drop Cells Not Reportable 10/27/20 03:30 Ovalocytes Not Reportable 10/27/20 03:30 Helmet Cells Not Reportable 10/27/20 03:30 [place] Bodies Not Reportable 10/27/20 03:30 [place] Rings Not Reportable 10/27/20 03:30 [place] Cells Not Reportable 10/27/20 03:30 Bite Cells Not Reportable 10/27/20 03:30 Crenated Cell Not Reportable 10/27/20 03:30 Elliptocytes Not Reportable 10/27/20 03:30 Acanthocytes (Spur) Not Reportable 10/27/20 03:30 Rouleaux Not Reportable 10/27/20 03:30 Hemoglobin C Crystals Not Reportable 10/27/20 03:30 Schistocytes Not Reportable 10/27/20 03:30 Malaria parasites Not Reportable 10/27/20 03:30 Richard Bodies Not Reportable 10/27/20 03:30 Hem Pathologist Commnt No 10/27/20 03:30 APTT 27.9 Sec. (24.2-36.6) 10/26/20 17:25 ABG pH 7.350 (7.320-7.450) 10/29/20 03:50 POC ABG pCO2 30.0 mmHg (32.0-48.0) L 10/29/20 03:50 ABG pCO2 39.5 mm Hg 10/26/20 17:30 POC ABG pO2 83.4 mmHg (83-108) 10/29/20 03:50 ABG pO2 312.4 mm Hg (80.0-90.0) H 10/26/20 17:30 POC ABG HCO3 16.2 10/29/20 03:50 ABG HCO3 16.4 mmol/L (20.0-26.0) L 10/26/20 17:30 ABG O2 Saturation 95.8 (0-100) 10/29/20 03:50 ABG O2 Content 15.9 (0.0-44) 10/26/20 17:30 POC ABG Base Excess -8.5 10/29/20 03:50 ABG Base Excess -10.4 mmol/L (-2.0-3.0) L 10/26/20 17:30 ABG Hemoglobin 8.1 (12.0-17.5) L 10/29/20 03:50 ABG Oxyhemoglobin 95.3 (94-98) 10/29/20 03:50 ABG Carboxyhemoglobin 1.1 % (0.0-5.0) 10/26/20 17:30 ABG Methemoglobin 0.1 (0.0-1.5) 10/29/20 03:50 ABG Sodium 142.1 mmol/L (136.0-145.0) 10/29/20 03:50 ABG Potassium 3.9 mmol/L (3.40-4.50) 10/29/20 03:50 ABG Chloride 113.0 mmol/L (98-107) H 10/29/20 03:50 ABG Glucose 153 mg/dL (65-95) H 10/29/20 03:50 Oxyhemoglobin 97.7 % (95.0-99.0) 10/26/20 17:30 Carboxyhemoglobin 0.4 (0.5-1.5) L 10/29/20 03:50 FiO2 100 % 10/26/20 17:30 FiO2 % 40 10/29/20 03:50 Sodium 145 mmol/L (137-145) 10/29/20 05:15 Potassium 4.0 mmol/L (3.6-5.0) 10/29/20 05:15 Chloride 110.4 mmol/L (98-107) H 10/29/20 05:15 Carbon Dioxide 15 mmol/L (22-30) L 10/29/20 05:15 Anion Gap 24 mmol/L 10/29/20 05:15 BUN 40 mg/dL (9-20) H 10/29/20 05:15 Creatinine 1.0 mg/dL (0.8-1.3) 10/29/20 05:15 Estimated GFR > 60 ml/min 10/29/20 05:15 BUN/Creatinine Ratio 40 % 10/29/20 05:15 Glucose 140 mg/dL (75-100) H 10/29/20 05:15 POC Glucose 121 mg/dL (70-105) H 10/29/20 11:41 Hemoglobin A1c 5.5 % (4-6) 10/27/20 04:42 Lactic Acid 10.90 mmol/L (0.7-2.0) H* 10/29/20 10:37 Calcium 7.0 mg/dL (8.4-10.2) L 10/29/20 05:15 Phosphorus 2.80 mg/dL (2.5-4.5) 10/28/20 00:40 Magnesium 2.10 mg/dL (1.7-2.3) 10/29/20 05:15 Total Bilirubin 0.20 mg/dL (0.1-1.2) 10/29/20 05:15 AST 14 units/L (5-40) 10/29/20 05:15 ALT 12 units/L (7-56) 10/29/20 05:15 Alkaline Phosphatase 98 units/L (35-129) 10/29/20 05:15 Total Creatine Kinase 31 units/L (55-170) L 10/26/20 17:28 Troponin T 0.062 ng/mL (0.00-0.029) H 10/26/20 17:25 Total Protein 6.0 g/dL (6.3-8.2) L 10/29/20 05:15 Albumin 1.0 g/dL (3.9-5) L 10/29/20 05:15 Albumin/Globulin Ratio 0.2 % 10/29/20 05:15 Triglycerides 190 mg/dL (2-149) H 10/26/20 17:25 Cholesterol 92 mg/dL (50-199) 10/26/20 17:25 LDL Cholesterol Direct 33 mg/dL (50-130) L 10/26/20 17:25 HDL Cholesterol 18 mg/dL (40-59) L 10/26/20 17:25 Cholesterol/HDL Ratio 5.11 % 10/26/20 17:25 TSH 1.490 mlU/mL (0.270-4.200) 10/26/20 17:28 Arterial Blood Glucose 153 mg/dL (65-95) H 10/29/20 03:50 Arterial Blood Ionized Calcium 4.1 mg/dL (4.6-5.3) L 10/29/20 03:50 Urine Color Yellow (Yellow) 10/27/20 Unknown Urine Turbidity Turbid (Clear) 10/27/20 Unknown Urine pH 8.0 (5.0-7.0) H 10/27/20 Unknown Ur Specific [place] 1.020 (1.003-1.030) 10/27/20 Unknown Urine Protein >500 mg/dL (Negative) 10/27/20 Unknown Urine Glucose (UA) Neg mg/dL (Negative) 10/27/20 Unknown Urine Ketones Neg mg/dL (Negative) 10/27/20 Unknown Urine Blood Sm (Negative) 10/27/20 Unknown Urine Nitrite Neg (Negative) 10/27/20 Unknown Urine Bilirubin Neg (Negative) 10/27/20 Unknown Urine Urobilinogen < 2.0 mg/dL (<2.0) 10/27/20 Unknown Ur Leukocyte Esterase Mod (Negative) 10/27/20 Unknown Urine WBC (Auto) > 182.0 /HPF (0.0-6.0) H 10/27/20 Unknown Urine RBC (Auto) 35.0 /HPF (0.0-6.0) 10/27/20 Unknown Urine WBC Clumps 3+ /HPF 10/27/20 Unknown Urine Mucus 3+ /HPF 10/27/20 Unknown Urine Yeast (Budding) 3+ /HPF 10/27/20 Unknown Salicylates < 0.3 mg/dL (2.8-20.0) L 10/26/20 17:28 Acetaminophen 5.0 ug/mL (10.0-30.0) L 10/26/20 17:28 Coronavirus (PCR) Negative (Negative) 10/27/20 Unknown Microbiology: Microbiology 10/26/20 Unknown Peripheral/Venous Blood Culture - Preliminary Proteus Mirabilis 10/26/20 Unknown Peripheral/Venous Blood Culture - Preliminary Gram Negative Lakhwinder 10/26/20 19:40 Tracheal Aspirate Sputum Culture - Final Methicillin Resist S. Aureus 10/27/20 06:05 Urine,Catheterized - Straight Catheter Urine Culture - Preliminary Rivas/IV: Voiding Method Indwelling Catheter Active Medications - Current Medications Current Medications: Generic Name Dose Route Start Last Admin Trade Name Freq PRN Reason Stop Dose Admin Acetaminophen 650 mg 10/26/20 22:22 10/29/20 08:05 Acetaminophen 325 Mg Tab PO 650 mg Q4H PRN Administration Pain MILD(1-3)/Fever >100.5/TIERNEY Lipase/Protease/Amylase 1 each 10/28/20 13:18 Lipase 10,500/Protease 25,000/Amylase 43,750 (Units) Dr Cap FEEDTUBE PRN PRN For Clogged Feeding Tube Digoxin 0.25 mg 10/29/20 12:00 10/29/20 12:01 Digoxin 0.5 Mg/2 Ml Inj IV 10/29/20 18:01 0.25 mg Q6HR MARSHALL Administration Famotidine 20 mg 10/28/20 10:00 10/29/20 10:01 Famotidine 20 Mg/2 Ml Inj IV 20 mg BID MARSHALL Administration Fentanyl 50 mcg 10/26/20 17:25 Fentanyl 100 Mcg/2 Ml Inj IV Q10MIN PRN ANALGESIA Fentanyl 50 mcg 10/27/20 10:39 10/28/20 15:56 Fentanyl 100 Mcg/2 Ml Inj IV 50 mcg Q2H PRN Administration Pain , Severe (7-10) Heparin Sodium (Porcine) 5,000 unit 10/26/20 22:45 10/29/20 10:01 Heparin 5,000 Unit/1 Ml Vial SUB-Q 5,000 unit Q12HR MARSHALL Administration Hydrophilic Ointment 1 applic 10/26/20 17:25 Lip Therapy Vaseline TP Q2HR PRN Dry Lips Fentanyl Citrate 2,000 mcg in 100 mls @ 4.165 mls/hr 10/26/20 18:00 10/28/20 23:26 Fentanyl Drip Premix IV 1 mcg/kg/hr TITR MARSHALL 4.165 mls/hr Administration Protocol 1 MCG/KG/HR Vancomycin HCl 1,250 mg/ 275 mls @ 166.667 mls/hr 10/27/20 20:00 10/28/20 19:27 Sodium Chloride IV 166.667 mls/hr Q24H MARSHALL Administration Norepinephrine 4 mg in 250 mls @ 112.5 mls/hr 10/28/20 01:00 10/29/20 12:05 Levophed Drip 4 Mg/Ns 250 Ml IV 12 mcg/min TITR MARSHLAL 45 mls/hr Titration Protocol 30 MCG/MIN Amiodarone HCl 900 mg/ 500 mls @ 33.333 mls/hr 10/28/20 01:00 10/29/20 03:15 Dextrose IV 1 mg/min DIRECT MARSHALL 33.333 mls/hr Administration Protocol 1 MG/MIN Sodium Bicarbonate 150 meq/ 1,150 mls @ 100 mls/hr 10/28/20 12:00 10/29/20 08:05 Dextrose IV 100 mls/hr DIRECT MARSHALL Administration Lactated Ringer's 1,000 mls @ 999 mls/hr 10/28/20 15:00 10/28/20 17:25 Lactated Ringers IV 10/29/20 16:01 999 mls/hr BOLUS MARSHALL Administration Vasopressin 20 unit/ Sodium 101 mls @ 9.09 mls/hr 10/28/20 16:00 Chloride IV TITR MARSHALL Protocol 0.03 UNITS/MIN Ceftriaxone Sodium 2 gm in 100 mls @ 200 mls/hr 10/29/20 13:00 10/29/20 13:58 Rocephin/Ns 2 Gm/100 Ml IV 200 mls/hr Q24H MARSHALL Administration Protocol Metronidazole 500 mg in 100 mls @ 100 mls/hr 10/29/20 14:00 Flagyl 500 Mg/100 Ml IV Q8H MARSHALL Protocol Lactated Ringer's 1,000 mls @ 999 mls/hr 10/29/20 13:15 10/29/20 13:58 Lactated Ringers IV 10/29/20 17:14 999 mls/hr Q1H MARSHALL Administration Multi-Ingred Cream/Lotion/Oil/Oint 1 applic 10/26/20 17:25 Mineral Oil/Petrolatum, White Ophth Oint 3.5 Gm OU Q4HR PRN Dry Eye(s) Ondansetron HCl 4 mg 10/26/20 22:22 Ondansetron 4 Mg/2 Ml Inj IV Q8H PRN Nausea And Vomiting Simple Syrup 15 ml 10/28/20 13:18 Simple Syrup 15 Ml FEEDTUBE PRN PRN Hypoglycemia Simple Syrup 30 ml 10/28/20 13:18 Simple Syrup 15 Ml FEEDTUBE PRN PRN Hypoglycemia Sodium Bicarbonate 325 mg 10/28/20 13:18 Sodium Bicarbonate 325 Mg Tab FEEDTUBE PRN PRN For Clogged Feeding Tube Sodium Chloride 5 ml 10/26/20 17:25 Sodium Chloride 0.9% 500 Ml Ivpb IV DIRECT PRN ARTERIAL CONSUMER INSIGHT ANALYST Sodium Chloride 10 ml 10/27/20 10:00 10/29/20 10:02 Sodium Chloride 0.9% 10 Ml Flush Syringe IV 10 ml BID MARSHALL Administration Sodium Chloride 10 ml 10/26/20 22:22 Sodium Chloride 0.9% 10 Ml Flush Syringe IV PRN PRN LINE FLUSH Sodium Hypochlorite 1 applic 10/28/20 10:00 10/29/20 10:10 Sodium Hypochlorite, Dakin's 1/2 Strength (0.25%) 473 Ml Topical Soln TP 1 applicatio BID MARSHALL Administration Nutrition/Malnutrition Assess - Dietary Evaluation Nutrition/Malnutrition Findings: Nutrition Notes Start: 10/27/20 09:15 Freq: Status: Active Protocol: Document 10/28/20 12:48 CW (Rec: 10/28/20 12:56 CW [id number]) Nutrition Notes Need for Assessment generated from: MD Order Initial or Follow up Assessment Current Diagnosis Acute Kidney Injury,Decubitus( Pressure Ulcer),Sepsis, Hypertension,Respiratory Failure,Hyperlipidemia Other Pertinent Diagnosis Encephalopathy, Metabiloc Acidosis, pneu, Covid 19 PUI, FTT Current Diet No current Diet Labs/Tests BUN 48 Cr 1.4 Pertinent Medications Levophed LR 1L Height 6 ft 2 in Weight 105.8 kg [place] Body Weight (kg) 86.36 BMI 29.9 Weight change and time frame 23% weight change; likely d/t error in combination with BLE edema Weight Status Appropriate Subjective/Other Information MD consult for TF. DRY HOUSE ATTENDANT reported BLE nonpitting edema during rounds today. TF to start at trickle feed per DRY HOUSE ATTENDANT. Pt remains on mechanical vent. Unsure of true weight at this time. Will base needs on previous weight until weight increase is confirmed. Based on based visits, weight tends to fluctuate often. Percent of energy/protein needs met: 0%/0% Burn Absent Trauma Absent Difficulty In Swallowing,Chewing Skin Integrity/Comment Multiple pressure ulcer,1 infected Current % PO Negligible Minimum of two criteria No Fluid Accumulation Mild (non-severe) #1 Nutrition Diagnosis Inadequate oral intake Diagnosis Progress(for reassessment Continues documentation) Is patient on ventilator? Yes Is Patient Ambulatory and/or Out of Bed No REE-([facility]-confined to bed) 3851.078 Calculation Used for Recommendations [facility] Additional Notes protein needs:98 - 163g (1.2 - 2g/kgBW) Fluid needs 1 ml/kcal Nutrition Intervention Change Diet Order: TF Nutrition Support: Nepro at 50 ml/hr with a free water flush of 215 ml q4h Kcal 2,160 Protein (gm) 97 Fluid (mL) 1,362 Goal #1 Initiate TF regimen Anticipated Discharge Needs: unable to determine at this time Follow-Up By: 10/30/20 Additional Comments F/U for TF at goal and vent status <CHARLIE HERBERT - Last Filed: 10/29/20 18:26> Assessment and Plan Assessment and plan: I saw and evaluated the patient. I agree with the findings and the plan of care as documented in the Nurse Practitioner's~note, with the following corrections and additions. Hospitalist Physical - Constitutional Vitals: Temp Pulse Resp BP Pulse Ox 99.0 F 104 H 16 114/68 100 10/29/20 12:00 10/29/20 15:30 10/29/20 15:30 10/29/20 15:30 10/29/20 15:30 HEART Score - HEART Score Troponin: Troponin T 0.062 ng/mL (0.00-0.029) H 10/26/20 17:25 Results - Labs CBC & Chem 7: 10/29/20 05:15 10/29/20 05:15 Labs: Laboratory Last Values WBC 23.9 K/mm3 (4.5-11.0) H 10/29/20 05:15 RBC 2.66 M/mm3 (3.65-5.03) L 10/29/20 05:15 Hgb 8.3 gm/dl (11.8-15.2) L 10/29/20 05:15 Hct 26.3 % (35.5-45.6) L 10/29/20 05:15 MCV 99 fl (84-94) H 10/29/20 05:15 MCH 31 pg (28-32) 10/29/20 05:15 MCHC 32 % (32-34) 10/29/20 05:15 RDW 17.5 % (13.2-15.2) H 10/29/20 05:15 Plt Count 168 K/mm3 (140-440) 10/29/20 05:15 Add Manual Diff Complete 10/27/20 03:30 Total Counted 100 10/27/20 03:30 Seg Neuts % (Manual) 57.0 % (40.0-70.0) 10/27/20 03:30 Band Neutrophils % 17.0 % 10/27/20 03:30 Lymphocytes % (Manual) 18.0 % (13.4-35.0) 10/27/20 03:30 Monocytes % (Manual) 2.0 % (0.0-7.3) 10/27/20 03:30 Eosinophils % (Manual) 2.0 % (0.0-4.3) 10/27/20 03:30 Metamyelocytes % 4.0 % 10/27/20 03:30 Nucleated RBC % Not Reportable 10/27/20 03:30 Seg Neutrophils # Man 11.6 K/mm3 (1.8-7.7) H 10/27/20 03:30 Band Neutrophils # 3.5 K/mm3 10/27/20 03:30 Lymphocytes # (Manual) 3.7 K/mm3 (1.2-5.4) 10/27/20 03:30 Abs React Lymphs (Man) 0.0 K/mm3 10/27/20 03:30 Monocytes # (Manual) 0.4 K/mm3 (0.0-0.8) 10/27/20 03:30 Eosinophils # (Manual) 0.4 K/mm3 (0.0-0.4) 10/27/20 03:30 Basophils # (Manual) 0.0 K/mm3 (0.0-0.1) 10/27/20 03:30 Metamyelocytes # 0.8 K/mm3 10/27/20 03:30 Myelocytes # 0.0 K/mm3 10/27/20 03:30 Promyelocytes # 0.0 K/mm3 10/27/20 03:30 Blast Cells # 0.0 K/mm3 10/27/20 03:30 WBC Morphology Not Reportable 10/27/20 03:30 Hypersegmented Neuts Not Reportable 10/27/20 03:30 Hyposegmented Neuts Not Reportable 10/27/20 03:30 Hypogranular Neuts Not Reportable 10/27/20 03:30 Smudge Cells Not Reportable 10/27/20 03:30 Toxic Granulation Not Reportable 10/27/20 03:30 Toxic Vacuolation Not Reportable 10/27/20 03:30 Dohle Bodies Not Reportable 10/27/20 03:30 Pelger-Huet Anomaly Not Reportable 10/27/20 03:30 Kassi Rods Not Reportable 10/27/20 03:30 Platelet Estimate Consistent w auto 10/27/20 03:30 Clumped Platelets Not Reportable 10/27/20 03:30 Plt Clumps, EDTA Not Reportable 10/27/20 03:30 Large Platelets Not Reportable 10/27/20 03:30 Giant Platelets Not Reportable 10/27/20 03:30 Platelet Satelliting Not Reportable 10/27/20 03:30 Plt Morphology Comment Not Reportable 10/27/20 03:30 RBC Morphology Not Reportable 10/27/20 03:30 Dimorphic RBCs Not Reportable 10/27/20 03:30 Polychromasia Not Reportable 10/27/20 03:30 Hypochromasia Few 10/27/20 03:30 Poikilocytosis Not Reportable 10/27/20 03:30 Anisocytosis Few 10/27/20 03:30 Microcytosis Not Reportable 10/27/20 03:30 Macrocytosis Not Reportable 10/27/20 03:30 Spherocytes Not Reportable 10/27/20 03:30 Pappenheimer Bodies Not Reportable 10/27/20 03:30 Sickle Cells Not Reportable 10/27/20 03:30 Target Cells Not Reportable 10/27/20 03:30 Tear Drop Cells Not Reportable 10/27/20 03:30 Ovalocytes Not Reportable 10/27/20 03:30 Helmet Cells Not Reportable 10/27/20 03:30 [place] Bodies Not Reportable 10/27/20 03:30 [place] Rings Not Reportable 10/27/20 03:30 [place] Cells Not Reportable 10/27/20 03:30 Bite Cells Not Reportable 10/27/20 03:30 Crenated Cell Not Reportable 10/27/20 03:30 Elliptocytes Not Reportable 10/27/20 03:30 Acanthocytes (Spur) Not Reportable 10/27/20 03:30 Rouleaux Not Reportable 10/27/20 03:30 Hemoglobin C Crystals Not Reportable 10/27/20 03:30 Schistocytes Not Reportable 10/27/20 03:30 Malaria parasites Not Reportable 10/27/20 03:30 Richard Bodies Not Reportable 10/27/20 03:30 Hem Pathologist Commnt No 10/27/20 03:30 APTT 27.9 Sec. (24.2-36.6) 10/26/20 17:25 ABG pH 7.350 (7.320-7.450) 10/29/20 03:50 POC ABG pCO2 30.0 mmHg (32.0-48.0) L 10/29/20 03:50 ABG pCO2 39.5 mm Hg 10/26/20 17:30 POC ABG pO2 83.4 mmHg (83-108) 10/29/20 03:50 ABG pO2 312.4 mm Hg (80.0-90.0) H 10/26/20 17:30 POC ABG HCO3 16.2 10/29/20 03:50 ABG HCO3 16.4 mmol/L (20.0-26.0) L 10/26/20 17:30 ABG O2 Saturation 95.8 (0-100) 10/29/20 03:50 ABG O2 Content 15.9 (0.0-44) 10/26/20 17:30 POC ABG Base Excess -8.5 10/29/20 03:50 ABG Base Excess -10.4 mmol/L (-2.0-3.0) L 10/26/20 17:30 ABG Hemoglobin 8.1 (12.0-17.5) L 10/29/20 03:50 ABG Oxyhemoglobin 95.3 (94-98) 10/29/20 03:50 ABG Carboxyhemoglobin 1.1 % (0.0-5.0) 10/26/20 17:30 ABG Methemoglobin 0.1 (0.0-1.5) 10/29/20 03:50 ABG Sodium 142.1 mmol/L (136.0-145.0) 10/29/20 03:50 ABG Potassium 3.9 mmol/L (3.40-4.50) 10/29/20 03:50 ABG Chloride 113.0 mmol/L (98-107) H 10/29/20 03:50 ABG Glucose 153 mg/dL (65-95) H 10/29/20 03:50 Oxyhemoglobin 97.7 % (95.0-99.0) 10/26/20 17:30 Carboxyhemoglobin 0.4 (0.5-1.5) L 10/29/20 03:50 FiO2 100 % 10/26/20 17:30 FiO2 % 40 10/29/20 03:50 Sodium 145 mmol/L (137-145) 10/29/20 05:15 Potassium 4.0 mmol/L (3.6-5.0) 10/29/20 05:15 Chloride 110.4 mmol/L (98-107) H 10/29/20 05:15 Carbon Dioxide 15 mmol/L (22-30) L 10/29/20 05:15 Anion Gap 24 mmol/L 10/29/20 05:15 BUN 40 mg/dL (9-20) H 10/29/20 05:15 Creatinine 1.0 mg/dL (0.8-1.3) 10/29/20 05:15 Estimated GFR > 60 ml/min 10/29/20 05:15 BUN/Creatinine Ratio 40 % 10/29/20 05:15 Glucose 140 mg/dL (75-100) H 10/29/20 05:15 POC Glucose 132 mg/dL (70-105) H 10/29/20 15:56 Hemoglobin A1c 5.5 % (4-6) 10/27/20 04:42 Lactic Acid 10.90 mmol/L (0.7-2.0) H* 10/29/20 10:37 Calcium 7.0 mg/dL (8.4-10.2) L 10/29/20 05:15 Phosphorus 2.80 mg/dL (2.5-4.5) 10/28/20 00:40 Magnesium 2.10 mg/dL (1.7-2.3) 10/29/20 05:15 Total Bilirubin 0.20 mg/dL (0.1-1.2) 10/29/20 05:15 AST 14 units/L (5-40) 10/29/20 05:15 ALT 12 units/L (7-56) 10/29/20 05:15 Alkaline Phosphatase 98 units/L (35-129) 10/29/20 05:15 Total Creatine Kinase 31 units/L (55-170) L 10/26/20 17:28 Troponin T 0.062 ng/mL (0.00-0.029) H 10/26/20 17:25 Total Protein 6.0 g/dL (6.3-8.2) L 10/29/20 05:15 Albumin 1.0 g/dL (3.9-5) L 10/29/20 05:15 Albumin/Globulin Ratio 0.2 % 10/29/20 05:15 Triglycerides 190 mg/dL (2-149) H 10/26/20 17:25 Cholesterol 92 mg/dL (50-199) 10/26/20 17:25 LDL Cholesterol Direct 33 mg/dL (50-130) L 10/26/20 17:25 HDL Cholesterol 18 mg/dL (40-59) L 10/26/20 17:25 Cholesterol/HDL Ratio 5.11 % 10/26/20 17:25 TSH 1.490 mlU/mL (0.270-4.200) 10/26/20 17:28 Arterial Blood Glucose 153 mg/dL (65-95) H 10/29/20 03:50 Arterial Blood Ionized Calcium 4.1 mg/dL (4.6-5.3) L 10/29/20 03:50 Urine Color Yellow (Yellow) 10/27/20 Unknown Urine Turbidity Turbid (Clear) 10/27/20 Unknown Urine pH 8.0 (5.0-7.0) H 10/27/20 Unknown Ur Specific [place] 1.020 (1.003-1.030) 10/27/20 Unknown Urine Protein >500 mg/dL (Negative) 10/27/20 Unknown Urine Glucose (UA) Neg mg/dL (Negative) 10/27/20 Unknown Urine Ketones Neg mg/dL (Negative) 10/27/20 Unknown Urine Blood Sm (Negative) 10/27/20 Unknown Urine Nitrite Neg (Negative) 10/27/20 Unknown Urine Bilirubin Neg (Negative) 10/27/20 Unknown Urine Urobilinogen < 2.0 mg/dL (<2.0) 10/27/20 Unknown Ur Leukocyte Esterase Mod (Negative) 10/27/20 Unknown Urine WBC (Auto) > 182.0 /HPF (0.0-6.0) H 10/27/20 Unknown Urine RBC (Auto) 35.0 /HPF (0.0-6.0) 10/27/20 Unknown Urine WBC Clumps 3+ /HPF 10/27/20 Unknown Urine Mucus 3+ /HPF 10/27/20 Unknown Urine Yeast (Budding) 3+ /HPF 10/27/20 Unknown Salicylates < 0.3 mg/dL (2.8-20.0) L 10/26/20 17:28 Acetaminophen 5.0 ug/mL (10.0-30.0) L 10/26/20 17:28 Coronavirus (PCR) Negative (Negative) 10/27/20 Unknown Microbiology: Microbiology 10/26/20 Unknown Peripheral/Venous Blood Culture - Preliminary Proteus Mirabilis 10/26/20 Unknown Peripheral/Venous Blood Culture - Preliminary Gram Negative Lakhwinder 10/26/20 19:40 Tracheal Aspirate Sputum Culture - Final Methicillin Resist S. Aureus 10/27/20 06:05 Urine,Catheterized - Straight Catheter Urine Culture - Preliminary Rivas/IV: Voiding Method Indwelling Catheter Active Medications - Current Medications Current Medications: Generic Name Dose Route Start Last Admin Trade Name Freq PRN Reason Stop Dose Admin Acetaminophen 650 mg 10/26/20 22:22 10/29/20 08:05 Acetaminophen 325 Mg Tab PO 650 mg Q4H PRN Administration Pain MILD(1-3)/Fever >100.5/TIERNEY Lipase/Protease/Amylase 1 each 10/28/20 13:18 Lipase 10,500/Protease 25,000/Amylase 43,750 (Units) Cap FEEDTUBE PRN PRN For Clogged Feeding Tube Famotidine 20 mg 10/28/20 10:00 10/29/20 10:01 Famotidine 20 Mg/2 Ml Inj IV 20 mg BID MARSHALL Administration Fentanyl 50 mcg 10/26/20 17:25 Fentanyl 100 Mcg/2 Ml Inj IV Q10MIN PRN ANALGESIA Fentanyl 50 mcg 10/27/20 10:39 10/28/20 15:56 Fentanyl 100 Mcg/2 Ml Inj IV 50 mcg Q2H PRN Administration Pain , Severe (7-10) Heparin Sodium (Porcine) 5,000 unit 10/26/20 22:45 10/29/20 10:01 Heparin 5,000 Unit/1 Ml Vial SUB-Q 5,000 unit Q12HR MARSHALL Administration Hydrophilic Ointment 1 applic 10/26/20 17:25 Lip Therapy Vaseline TP Q2HR PRN Dry Lips Fentanyl Citrate 2,000 mcg in 100 mls @ 4.165 mls/hr 10/26/20 18:00 10/29/20 14:07 Fentanyl Drip Premix IV 0 mcg/kg/hr TITR MARSHALL 0 mls/hr Titration Protocol 1 MCG/KG/HR Vancomycin HCl 1,250 mg/ 275 mls @ 166.667 mls/hr 10/27/20 20:00 10/28/20 19:27 Sodium Chloride IV 166.667 mls/hr Q24H MARSHALL Administration Norepinephrine 4 mg in 250 mls @ 112.5 mls/hr 10/28/20 01:00 10/29/20 13:35 Levophed Drip 4 Mg/Ns 250 Ml IV 12 mcg/min TITR MARSHALL 45 mls/hr Administration Protocol 30 MCG/MIN Amiodarone HCl 900 mg/ 500 mls @ 33.333 mls/hr 10/28/20 01:00 10/29/20 03:15 Dextrose IV 1 mg/min DIRECT MARSHALL 33.333 mls/hr Administration Protocol 1 MG/MIN Sodium Bicarbonate 150 meq/ 1,150 mls @ 100 mls/hr 10/28/20 12:00 10/29/20 08:05 Dextrose IV 100 mls/hr DIRECT MARSHALL Administration Vasopressin 20 unit/ Sodium 101 mls @ 9.09 mls/hr 10/28/20 16:00 Chloride IV TITR MARSHALL Protocol 0.03 UNITS/MIN Ceftriaxone Sodium 2 gm in 100 mls @ 200 mls/hr 10/29/20 13:00 10/29/20 13:58 Rocephin/Ns 2 Gm/100 Ml IV 200 mls/hr Q24H MARSHALL Administration Protocol Metronidazole 500 mg in 100 mls @ 100 mls/hr 10/29/20 14:00 10/29/20 14:05 Flagyl 500 Mg/100 Ml IV 100 mls/hr Q8H MARSHALL Administration Protocol Multi-Ingred Cream/Lotion/Oil/Oint 1 applic 10/26/20 17:25 Mineral Oil/Petrolatum, White Ophth Oint 3.5 Gm OU Q4HR PRN Dry Eye(s) Ondansetron HCl 4 mg 10/26/20 22:22 Ondansetron 4 Mg/2 Ml Inj IV Q8H PRN Nausea And Vomiting Simple Syrup 15 ml 10/28/20 13:18 Simple Syrup 15 Ml FEEDTUBE PRN PRN Hypoglycemia Simple Syrup 30 ml 10/28/20 13:18 Simple Syrup 15 Ml FEEDTUBE PRN PRN Hypoglycemia Sodium Bicarbonate 325 mg 10/28/20 13:18 Sodium Bicarbonate 325 Mg Tab FEEDTUBE PRN PRN For Clogged Feeding Tube Sodium Chloride 5 ml 10/26/20 17:25 Sodium Chloride 0.9% 500 Ml Ivpb IV DIRECT PRN ARTERIAL CONSUMER INSIGHT ANALYST Sodium Chloride 10 ml 10/27/20 10:00 10/29/20 10:02 Sodium Chloride 0.9% 10 Ml Flush Syringe IV 10 ml BID MARSHALL Administration Sodium Chloride 10 ml 10/26/20 22:22 Sodium Chloride 0.9% 10 Ml Flush Syringe IV PRN PRN LINE FLUSH Sodium Hypochlorite 1 applic 10/28/20 10:00 10/29/20 10:10 Sodium Hypochlorite, Dakin's 1/2 Strength (0.25%) 473 Ml Topical Soln TP 1 applicatio BID MARSHALL Administration Nutrition/Malnutrition Assess - Dietary Evaluation Nutrition/Malnutrition Findings: Nutrition Notes Start: 10/27/20 09:15 Freq: Status: Active Protocol: Document 10/28/20 12:48 CW (Rec: 10/28/20 12:56 CW [id number]) Nutrition Notes Need for Assessment generated from: MD Order Initial or Follow up Assessment Current Diagnosis Acute Kidney Injury,Decubitus( Pressure Ulcer),Sepsis, Hypertension,Respiratory Failure,Hyperlipidemia Other Pertinent Diagnosis Encephalopathy, Metabiloc Acidosis, pneu, Covid 19 PUI, FTT Current Diet No current Diet Labs/Tests BUN 48 Cr 1.4 Pertinent Medications Levophed LR 1L Height 6 ft 2 in Weight 105.8 kg [place] Body Weight (kg) 86.36 BMI 29.9 Weight change and time frame 23% weight change; likely d/t error in combination with BLE edema Weight Status Appropriate Subjective/Other Information MD consult for TF. DRY HOUSE ATTENDANT reported BLE nonpitting edema during rounds today. TF to start at trickle feed per DRY HOUSE ATTENDANT. Pt remains on mechanical vent. Unsure of true weight at this time. Will base needs on previous weight until weight increase is confirmed. Based on based visits, weight tends to fluctuate often. Percent of energy/protein needs met: 0%/0% Burn Absent Trauma Absent Difficulty In Swallowing,Chewing Skin Integrity/Comment Multiple pressure ulcer,1 infected Current % PO Negligible Minimum of two criteria No Fluid Accumulation Mild (non-severe) #1 Nutrition Diagnosis Inadequate oral intake Diagnosis Progress(for reassessment Continues documentation) Is patient on ventilator? Yes Is Patient Ambulatory and/or Out of Bed No REE-([facility]-confined to bed) [phone] Calculation Used for Recommendations [facility] Additional Notes protein needs:98 - 163g (1.2 - 2g/kgBW) Fluid needs 1 ml/kcal Nutrition Intervention Change Diet Order: TF Nutrition Support: Nepro at 50 ml/hr with a free water flush of 215 ml q4h Kcal 2,160 Protein (gm) 97 Fluid (mL) 1,362 Goal #1 Initiate TF regimen Anticipated Discharge Needs: unable to determine at this time Follow-Up By: 10/30/20 Additional Comments F/U for TF at goal and vent status
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
[2020-10-29] MEDS: fentaNYL 100 MCG/2 ML INJ IV PRN (16:05)
--- NOTE | 2020-10-29 18:37 | Operative Report ---
Operative Report Operative Report: Date: 10/29/20 Surgeon: Yohan Ruiz MD Filling Operator: Kathleen Ma DO Procedure: Wide excisional debridment of sacral decubitus wound Pre-op diagnosis: Infected sacral decubitus wound Post-op diagnosis: Necrotic sacral decubitus wound Indication: 75 year old male presented to ED from detention in septic shock requiring intubation and was started on resuscitation. Work up showed pneumonia, and stage 4 decubitus ulcer. The sacral wound was thought to be a major source of of the sepsis. Patients overall prognosis was poor due to ventilator dependent on vaso-pressors. Consent was obtained from the patient's cousin who is his designated next of kin decision maker. A thorough discussion was had with the cousin explaining that wound was extensive and debridement may not change the overall outcome. He says he understood. Details of procedure: Patient was turned onto his right side in his ICU bed. The wound edges measured [id number] with a 14cm deep skin flap at 12 o'clock. The wound was foul smelling with necrotic tissue at the base with the coccyx bone exposed. There was liquified necrotic fat and fascia down to the muscle. The overlying skin that was non-viable was excised to new measurement of [id number] with 9cm skin flap at 12 o'clock. The underlying nonviable tissue was sharply debrided to the degree that was feasible to not be too close to the anus, and to be able to control bleeding. The wound bed was irrigated and hemostasis was achieved with a combination of sutures, quick clot, and surgicel. The wound was then packed with dakin's solution soaked kerlex and covered with dressing. It was not felt safe to be more aggressive at this time due to his overall condition. 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 The tip of the coccyx was brittle and dislodged from its base during the debridement. Complication: none immediate
[2020-10-29] MEDS ORDERED: SODIUM CHLORIDE 0.9% 500 ML 500 ML IV ONE (20:21)
[2020-10-29] MEDS: VANCOMYCIN 1,250 MG in SODIUM CHLORIDE 0.9% 250ML 250 ML IV SCH (21:08)
[2020-10-29] MEDS: fentaNYL DRIP Premix 2,000 MCG/100 ML BAG IV SCH (21:10)
[2020-10-30] MEDS: NORepinephrine/NS 4 MG-250 ML 4 MG/250 ML BAG IV SCH ×4 (00:54→23:05)
[2020-10-30] MEDS ORDERED: LACTATED RINGERS 250 ML IV ONE (00:56)
[2020-10-30] MEDS ORDERED: LACTATED RINGERS 1,000 ML IV ONE (01:01)
[2020-10-30 06:05] LABS: Hematocrit 21.9 % (35.5-45.6); Mean Corpuscular HGB Conc 32 % (32-34); Mean Corpuscular Volume 96 fl (84-94); Red Blood Count 2.28 M/mm3 (3.65-5.03)
[2020-10-30 06:09] LABS: Blood Urea Nitrogen 28 mg/dL (9-20); Calcium 6.2 mg/dL (8.4-10.2); Hemolysis Index 0
[2020-10-30 06:11] LABS: Platelet Count 90 K/mm3 (140-440)
[2020-10-30 06:12] LABS: BUN/Creatinine Ratio 47
--- NOTE | 2020-10-30 06:20 | XRay Report ---
CHEST 1 VIEW INDICATION: follow up respiratory failure COMPARISON: One day prior. FINDINGS: Support devices: Unchanged. Heart: Stable. Lungs/Pleura: Bilateral lung disease, unchanged. IMPRESSION: 1. No significant change. Signer Name: Bogdan Cheng MD Signed: 10/30/2020 6:15 AM Workstation Name: [id number]
[2020-10-30] MEDS: metroNIDAZOLE/NS 500 MG/100 ML 500 MG/100 ML BAG IV SCH ×3 (06:54→22:30)
[2020-10-30] MEDS: SODIUM BICARBONATE 150 MEQ in DEXTROSE 5% IN WATER 1,000 ML IV SCH (07:36)
[2020-10-30] MEDS: AMIODARONE 900 MG in DEXTROSE 5% IN WATER 482 ML IV SCH (07:50)
[2020-10-30] MEDS ORDERED: POTASSIUM CHLORIDE 20 MEQ PACKET FEEDTUBE ONE (08:00)
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
[2020-10-30] MEDS: POTASSIUM CHLORIDE 20 MEQ 20 MEQ/100 ML BAG IV SCH ×2 (09:16→11:00)
[2020-10-30] MEDS: FAMOTIDINE 20 MG/2 ML INJ IV SCH ×2 (09:16→21:03)
[2020-10-30] MEDS: SODIUM HYPOCHLORITE, DAKIN'S 1/2 STRENGTH (0.25%) 473 ML TOPICAL SOLN TP SCH ×2 (09:16→21:03)
[2020-10-30 09:50] LABS: Hematocrit 22.7 % (35.5-45.6); Hemoglobin 7.3 gm/dl (11.8-15.2); Mean Corpuscular HGB Conc 32 % (32-34); Mean Corpuscular Volume 96 fl (84-94); Red Blood Count 2.36 M/mm3 (3.65-5.03); Red Cell Distribution Width 17.1 % (13.2-15.2)
[2020-10-30 10:27] LABS: Platelet Count 73 K/mm3 (140-440)
[2020-10-30] MEDS ORDERED: SODIUM CHLORIDE 0.9% 500 ML 500 ML IV NR (10:37)
--- NOTE | 2020-10-30 10:44 | Progress Note ---
<HALIE PIERCE - Last Filed: 10/30/20 12:11> Assessment and Plan Assessment and plan: -Infectious disease, surgery, CCM, WOCN, cardiology consulted, appreciate recommendations -Antibiotic therapy -WC per nursing -Type and Cross, transfuse 2 units prbc -HIT pending, heparin discontinued d/t plt drop -Trend CBC, BMP -Proteus bacteremia, MRSA pneumonia -VAP bundle, wean as tolerated -Amiodarone drip for rate control GI/DVT prophylaxis: No chemical anticoagulation r/t thrombocytopenia, SCDs to bilateral legs while in bed, PPI Dispo: ICU The high probability of a clinically significant, sudden or life threatening deterioration of the [multi] system(s) required my full and direct attention, intervention and personal management. The aggregate critical care time was [35] minutes. This time is in addition to time spent performing reported procedures but includes the following: [x] Data Review and interpretation [x] Patient assessment and monitoring of vital signs [x] Documentation [x] Medication orders and management History Interval history: This is a 75-year-old male who is a assisted resident with seizure disorder, hypertension, depression, hyperlipidemia, hypoglycemia, dysphagia, and encephalopathy who presents to the emergency department on 10/26 via EMS for tachypnea, dry mucous membranes and hypoxia. Patient was hypotensive, febrile to 103 degrees and hypoxic in the emergency department therefore he was intubated and central IV access was obtained. Patient received 3.5 L of IV fluid in the emergency department. Patient was admitted to the hospital service with consults to CCM, surgery, WOCN and ID for Sepsis, acute kidney injury, uri nary tract infection, acute respiratory failure, electrolyte imbalances and bilateral pneumonia. Sepsis Acute respiratory failure Infected sacral wound Proteus bacteremia MRSA pneumonia Urine tract infection Acute kidney injury Leukocytosis Hyperchloremia Metabolic acidosis Acute kidney injury Lactic acidosis 10/27: Patient received additional 4 L LR for fluid resuscitation and CV monitoring was initiated. Patient is on Levophed. ID added Flagyl to vancomycin and cefepime. His trach aspirate grew staph coccus aureus. At the time my examination patient the fentanyl drip was held by RN and he was on 14 MCG of Levophed. This morning he was on assist control 450/20/6/.100. We will give additional bolus of fluids with goal CVP 10-12 and repeat labs in AM. Surgery was consulted to possible debridement. 10/28: Overnight it was noted that patient went into SVT and he was given adenosine 6 mg/12 mg / 12 mg once and was started on a Cardizem drip after no response to amnio bolus and cardiology was consulted. Currently patient remains on Levophed drip and is hypotensive and received additional 2 L of bolus for goal CVP of 10-12. Infectious disease changed cefepime/Flagyl to meropenem for GNR in his blood cultures 09/04 and will continue vancomycin. Patient currently was not well controlled on max Cardizem and cardiology initiated amiodarone. Patient still is very tachycardic. Patient is hypomagnesemic and we will replete his Mg and recheck level. We will give the patient additional to complete resolve LR this afternoon. Patient has a standing order per [facility] to bolus the patient with LR for CVP goal of 10-12. This morning he is hyperchlormeic, metabolic acidotic (bicarb drip initiated) and his BUN/creatinine slightly elevated. Patient still remains lactic acidotic. 10/29: Patient's blood culture speciated to Proteus and his tracheal aspirate is MRSA. He is currently on ceftriaxone, Flagyl and vancomycin. Patient heart rate consistently is 110-150s and cardiology has given him an amiodarone bolus today and he remains on amiodarone drip. He looks much started on IV digoxin. This morning 4 L LR bolus was ordered and we will bolus an additional 4 L of LR this afternoon. Patient still has lactic acidosis, metabolic acidosis, leukocytosis and hyperchloremia. On examination this morning patient is more edematous and he remains on Levophed and amnio drip. 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 Remains on amio, levo and sedated with fentanyl. He is hypokalemic today which was repleted, h/h 02/18 and he is being type and crossed today with 2 units PRBC ordered to be transfused. Plt drop noted, heparin discontinued and HIT ordered. Bicarb gtt discontinued. No acute events overnight. Hospitalist Physical - Constitutional Vitals: Temp Pulse Resp BP Pulse Ox 97 F L 62 20 126/67 98 10/30/20 08:00 10/30/20 10:15 10/30/20 10:15 10/30/20 10:15 10/30/20 10:15 General appearance: Present: no acute distress, other (intubated, sedated) - EENT Eyes: Present: PERRL ENT: poor dentition - Neck Neck: Present: supple - Respiratory Respiratory effort: normal Respiratory: bilateral: diminished - Cardiovascular Rhythm: regular Heart Sounds: Present: S1 & S2. Absent: systolic murmur, diastolic murmur - Extremities Extremities: no ischemia, pulses intact, pulses symmetrical, No edema, normal temperature, normal color Extremity abnormal: edema - Peripheral Assessment Generalized Edema Type: Non-pitting Capillary Refill: < 3 seconds Skin Temperature: Cool Peripheral Pulses: within normal limits - Abdominal General gastrointestinal: soft, non-tender, non-distended, normal bowel sounds - Integumentary Integumentary: Present: warm, dry - Psychiatric Psychiatric: other (sedated) - Neurologic Neurologic: other (sedated) - Allied Health Allied health notes reviewed: nursing, RT, case management HEART Score - HEART Score EKG: Non-specific Age: > 65 Risk factors: > 3 risk factors or hx of atherosclerotic disease Troponin: Troponin T 0.062 ng/mL (0.00-0.029) H 10/26/20 17:25 Troponin: < normal limit - Critical Actions Critical Actions: 4-6 pts:12-16.6% risk of adverse cardiac event. Should be admitted Results - Labs CBC & Chem 7: 10/30/20 Unknown 10/30/20 04:54 Labs: Laboratory Last Values WBC 21.1 K/mm3 (4.5-11.0) H 10/30/20 Unknown RBC 2.36 M/mm3 (3.65-5.03) L 10/30/20 Unknown Hgb 7.3 gm/dl (11.8-15.2) L 10/30/20 Unknown Hct 22.7 % (35.5-45.6) L 10/30/20 Unknown MCV 96 fl (84-94) H 10/30/20 Unknown MCH 31 pg (28-32) 10/30/20 Unknown MCHC 32 % (32-34) 10/30/20 Unknown RDW 17.1 % (13.2-15.2) H 10/30/20 Unknown Plt Count 73 K/mm3 (140-440) L 10/30/20 Unknown Add Manual Diff Complete 10/27/20 03:30 Total Counted 100 10/27/20 03:30 Seg Neuts % (Manual) 57.0 % (40.0-70.0) 10/27/20 03:30 Band Neutrophils % 17.0 % 10/27/20 03:30 Lymphocytes % (Manual) 18.0 % (13.4-35.0) 10/27/20 03:30 Monocytes % (Manual) 2.0 % (0.0-7.3) 10/27/20 03:30 Eosinophils % (Manual) 2.0 % (0.0-4.3) 10/27/20 03:30 Metamyelocytes % 4.0 % 10/27/20 03:30 Nucleated RBC % Not Reportable 10/27/20 03:30 Seg Neutrophils # Man 11.6 K/mm3 (1.8-7.7) H 10/27/20 03:30 Band Neutrophils # 3.5 K/mm3 10/27/20 03:30 Lymphocytes # (Manual) 3.7 K/mm3 (1.2-5.4) 10/27/20 03:30 Abs React Lymphs (Man) 0.0 K/mm3 10/27/20 03:30 Monocytes # (Manual) 0.4 K/mm3 (0.0-0.8) 10/27/20 03:30 Eosinophils # (Manual) 0.4 K/mm3 (0.0-0.4) 10/27/20 03:30 Basophils # (Manual) 0.0 K/mm3 (0.0-0.1) 10/27/20 03:30 Metamyelocytes # 0.8 K/mm3 10/27/20 03:30 Myelocytes # 0.0 K/mm3 10/27/20 03:30 Promyelocytes # 0.0 K/mm3 10/27/20 03:30 Blast Cells # 0.0 K/mm3 10/27/20 03:30 WBC Morphology Not Reportable 10/27/20 03:30 Hypersegmented Neuts Not Reportable 10/27/20 03:30 Hyposegmented Neuts Not Reportable 10/27/20 03:30 Hypogranular Neuts Not Reportable 10/27/20 03:30 Smudge Cells Not Reportable 10/27/20 03:30 Toxic Granulation Not Reportable 10/27/20 03:30 Toxic Vacuolation Not Reportable 10/27/20 03:30 Dohle Bodies Not Reportable 10/27/20 03:30 Pelger-Huet Anomaly Not Reportable 10/27/20 03:30 Kassi Rods Not Reportable 10/27/20 03:30 Platelet Estimate Consistent w auto 10/27/20 03:30 Clumped Platelets Not Reportable 10/27/20 03:30 Plt Clumps, EDTA Not Reportable 10/27/20 03:30 Large Platelets Not Reportable 10/27/20 03:30 Giant Platelets Not Reportable 10/27/20 03:30 Platelet Satelliting Not Reportable 10/27/20 03:30 Plt Morphology Comment Not Reportable 10/27/20 03:30 RBC Morphology Not Reportable 10/27/20 03:30 Dimorphic RBCs Not Reportable 10/27/20 03:30 Polychromasia Not Reportable 10/27/20 03:30 Hypochromasia Few 10/27/20 03:30 Poikilocytosis Not Reportable 10/27/20 03:30 Anisocytosis Few 10/27/20 03:30 Microcytosis Not Reportable 10/27/20 03:30 Macrocytosis Not Reportable 10/27/20 03:30 Spherocytes Not Reportable 10/27/20 03:30 Pappenheimer Bodies Not Reportable 10/27/20 03:30 Sickle Cells Not Reportable 10/27/20 03:30 Target Cells Not Reportable 10/27/20 03:30 Tear Drop Cells Not Reportable 10/27/20 03:30 Ovalocytes Not Reportable 10/27/20 03:30 Helmet Cells Not Reportable 10/27/20 03:30 [place] Bodies Not Reportable 10/27/20 03:30 Marianna Rings Not Reportable 10/27/20 03:30 Rhea Cells Not Reportable 10/27/20 03:30 Bite Cells Not Reportable 10/27/20 03:30 Crenated Cell Not Reportable 10/27/20 03:30 Elliptocytes Not Reportable 10/27/20 03:30 Acanthocytes (Spur) Not Reportable 10/27/20 03:30 Rouleaux Not Reportable 10/27/20 03:30 Hemoglobin C Crystals Not Reportable 10/27/20 03:30 Schistocytes Not Reportable 10/27/20 03:30 Malaria parasites Not Reportable 10/27/20 03:30 Richard Bodies Not Reportable 10/27/20 03:30 Hem Pathologist Commnt No 10/27/20 03:30 APTT 27.9 Sec. (24.2-36.6) 10/26/20 17:25 ABG pH 7.413 (7.320-7.450) 10/30/20 02:26 POC ABG pCO2 37.1 mmHg (32.0-48.0) 10/30/20 02:26 ABG pCO2 39.5 mm Hg 10/26/20 17:30 POC ABG pO2 76.6 mmHg (83-108) L 10/30/20 02:26 ABG pO2 312.4 mm Hg (80.0-90.0) H 10/26/20 17:30 POC ABG HCO3 23.1 10/30/20 02:26 ABG HCO3 16.4 mmol/L (20.0-26.0) L 10/26/20 17:30 ABG O2 Saturation 95.2 (0-100) 10/30/20 02:26 ABG O2 Content 15.9 (0.0-44) 10/26/20 17:30 POC ABG Base Excess -1.3 10/30/20 02: ABG Base Excess -10.4 mmol/L (-2.0-3.0) L 10/26/20 17:30 ABG Hemoglobin 6.4 (12.0-17.5) L 10/30/20 02:26 ABG Oxyhemoglobin 93.8 (94-98) L 10/30/20 02:26 ABG Carboxyhemoglobin 1.1 % (0.0-5.0) 10/26/20 17:30 ABG Methemoglobin 0.2 (0.0-1.5) 10/30/20 02:26 ABG Sodium 137.5 mmol/L (136.0-145.0) 10/30/20 02:26 ABG Potassium 2.9 mmol/L (3.40-4.50) L 10/30/20 02:26 ABG Chloride 110.0 mmol/L (98-107) H 10/30/20 02:26 ABG Glucose 212 mg/dL (65-95) H 10/30/20 02:26 Oxyhemoglobin 97.7 % (95.0-99.0) 10/26/20 17:30 Carboxyhemoglobin 1.3 (0.5-1.5) 10/30/20 02:26 FiO2 100 % 10/26/20 17:30 FiO2 % 30.0 10/30/20 02:26 Sodium 140 mmol/L (137-145) 10/30/20 04:54 Potassium 3.0 mmol/L (3.6-5.0) L D 10/30/20 04:54 Chloride 105.4 mmol/L (98-107) 10/30/20 04:54 Carbon Dioxide 24 mmol/L (22-30) D 10/30/20 04:54 Anion Gap 14 mmol/L 10/30/20 04:54 BUN 28 mg/dL (9-20) H 10/30/20 04:54 Creatinine 0.6 mg/dL (0.8-1.3) L 10/30/20 04:54 Estimated GFR > 60 ml/min 10/30/20 04:54 BUN/Creatinine Ratio 47 % 10/30/20 04:54 Glucose 214 mg/dL (75-100) H 10/30/20 04:54 POC Glucose 187 mg/dL (70-105) H 10/30/20 05:14 Hemoglobin A1c 5.5 % (4-6) 10/27/20 04:42 Lactic Acid 10.90 mmol/L (0.7-2.0) H* 10/29/20 10:37 Calcium 6.2 mg/dL (8.4-10.2) L 10/30/20 04:54 Phosphorus 2.80 mg/dL (2.5-4.5) 10/28/20 00:40 Magnesium 2.10 mg/dL (1.7-2.3) 10/29/20 05:15 Total Bilirubin 0.20 mg/dL (0.1-1.2) 10/29/20 05:15 AST 14 units/L (5-40) 10/29/20 05:15 ALT 12 units/L (7-56) 10/29/20 05:15 Alkaline Phosphatase 98 units/L (35-129) 10/29/20 05:15 Total Creatine Kinase 31 units/L (55-170) L 10/26/20 17:28 Troponin T 0.062 ng/mL (0.00-0.029) H 10/26/20 17:25 Total Protein 6.0 g/dL (6.3-8.2) L 10/29/20 05:15 Albumin 1.0 g/dL (3.9-5) L 10/29/20 05:15 Albumin/Globulin Ratio 0.2 % 10/29/20 05:15 Triglycerides 190 mg/dL (2-149) H 10/26/20 17:25 Cholesterol 92 mg/dL (50-199) 10/26/20 17:25 LDL Cholesterol Direct 33 mg/dL (50-130) L 10/26/20 17:25 HDL Cholesterol 18 mg/dL (40-59) L 10/26/20 17:25 Cholesterol/HDL Ratio 5.11 % 10/26/20 17:25 TSH 1.490 mlU/mL (0.270-4.200) 10/26/20 17:28 Arterial Blood Glucose 212 mg/dL (65-95) H 10/30/20 02:26 Arterial Blood Ionized Calcium 3.9 mg/dL (4.6-5.3) L 10/30/20 02:26 Urine Color Yellow (Yellow) 10/27/20 Unknown Urine Turbidity Turbid (Clear) 10/27/20 Unknown Urine pH 8.0 (5.0-7.0) H 10/27/20 Unknown Ur Specific [place] 1.020 (1.003-1.030) 10/27/20 Unknown Urine Protein >500 mg/dL (Negative) 10/27/20 Unknown Urine Glucose (UA) Neg mg/dL (Negative) 10/27/20 Unknown Urine Ketones Neg mg/dL (Negative) 10/27/20 Unknown Urine Blood Sm (Negative) 10/27/20 Unknown Urine Nitrite Neg (Negative) 10/27/20 Unknown Urine Bilirubin Neg (Negative) 10/27/20 Unknown Urine Urobilinogen < 2.0 mg/dL (<2.0) 10/27/20 Unknown Ur Leukocyte Esterase Mod (Negative) 10/27/20 Unknown Urine WBC (Auto) > 182.0 /HPF (0.0-6.0) H 10/27/20 Unknown Urine RBC (Auto) 35.0 /HPF (0.0-6.0) 10/27/20 Unknown Urine WBC Clumps 3+ /HPF 10/27/20 Unknown Urine Mucus 3+ /HPF 10/27/20 Unknown Urine Yeast (Budding) 3+ /HPF 10/27/20 Unknown Vancomycin Trough 22.0 ug/mL (5.0-20.0) H 10/30/20 Unknown Salicylates < 0.3 mg/dL (2.8-20.0) L 10/26/20 17:28 Acetaminophen 5.0 ug/mL (10.0-30.0) L 10/26/20 17:28 Coronavirus (PCR) Negative (Negative) 10/27/20 Unknown Blood Type O POSITIVE 10/30/20 09:30 Crossmatch See Detail 10/30/20 09:30 Microbiology: Microbiology 10/26/20 Unknown Peripheral/Venous Blood Culture - Preliminary Proteus Mirabilis 10/26/20 Unknown Peripheral/Venous Blood Culture - Preliminary Gram Negative Lakhwinder 10/26/20 19:40 Tracheal Aspirate Sputum Culture - Final Methicillin Resist S. Aureus 10/27/20 06:05 Urine,Catheterized - Straight Catheter Urine Culture - Preliminary Rivas/IV: Voiding Method Indwelling Catheter Active Medications - Current Medications Current Medications: Generic Name Dose Route Start Last Admin Trade Name Freq PRN Reason Stop Dose Admin Acetaminophen 650 mg 10/26/20 22:22 10/29/20 08:05 Acetaminophen 325 Mg Tab PO 650 mg Q4H PRN Administration Pain MILD(1-3)/Fever >100.5/TIERNEY Lipase/Protease/Amylase 1 each 10/28/20 13:18 Lipase 10,500/Protease 25,000/Amylase 43,750 (Units) Cap FEEDTUBE PRN PRN For Clogged Feeding Tube Famotidine 20 mg 10/28/20 10:00 10/30/20 09:16 Famotidine 20 Mg/2 Ml Inj IV 20 mg BID MARSHALL Administration Fentanyl 50 mcg 10/26/20 17:25 Fentanyl 100 Mcg/2 Ml Inj IV Q10MIN PRN ANALGESIA Fentanyl 50 mcg 10/27/20 10:39 10/29/20 16:05 Fentanyl 100 Mcg/2 Ml Inj IV 50 mcg Q2H PRN Administration Pain , Severe (7-10) Hydrophilic Ointment 1 applic 10/26/20 17:25 Lip Therapy Vaseline TP Q2HR PRN Dry Lips Fentanyl Citrate 2,000 mcg in 100 mls @ 4.165 mls/hr 10/26/20 18:00 10/29/20 21:10 Fentanyl Drip Premix IV 1 mcg/kg/hr TITR MARSHALL 4.165 mls/hr Administration Protocol 1 MCG/KG/HR Vancomycin HCl 1,250 mg/ 275 mls @ 166.667 mls/hr 10/27/20 20:00 10/29/20 21:08 Sodium Chloride IV 166.667 mls/hr Q24H MARSHALL Administration Norepinephrine 4 mg in 250 mls @ 112.5 mls/hr 10/28/20 01:00 10/30/20 07:36 Levophed Drip 4 Mg/Ns 250 Ml IV 8 mcg/min TITR MARSHALL 30 mls/hr Administration Protocol 30 MCG/MIN Amiodarone HCl 900 mg/ 500 mls @ 33.333 mls/hr 10/28/20 01:00 10/30/20 07:50 Dextrose IV 1 mg/min DIRECT MARSHALL 33.333 mls/hr Administration Protocol 1 MG/MIN Vasopressin 20 unit/ Sodium 101 mls @ 9.09 mls/hr 10/28/20 16:00 Chloride IV TITR MARSHALL Protocol 0.03 UNITS/MIN Ceftriaxone Sodium 2 gm in 100 mls @ 200 mls/hr 10/29/20 13:00 10/29/20 13:58 Rocephin/Ns 2 Gm/100 Ml IV 200 mls/hr Q24H MARSHALL Administration Protocol Metronidazole 500 mg in 100 mls @ 100 mls/hr 10/29/20 14:00 10/30/20 06:54 Flagyl 500 Mg/100 Ml IV 100 mls/hr Q8H MARSHALL Administration Protocol Potassium Chloride 20 meq in 100 mls @ 100 mls/hr 10/30/20 09:00 10/30/20 09:16 Kcl 20meq/100ml IV 10/30/20 10:59 100 mls/hr Q1H MARSHALL Administration Sodium Chloride 500 mls @ 0 mls/hr 10/30/20 10:37 Nacl 0.9% 500 Ml IV 10/30/20 10:38 ONCE ONE As Directed Multi-Ingred Cream/Lotion/Oil/Oint 1 applic 10/26/20 17:25 Mineral Oil/Petrolatum, White Ophth Oint 3.5 Gm OU Q4HR PRN Dry Eye(s) Ondansetron HCl 4 mg 10/26/20 22:22 Ondansetron 4 Mg/2 Ml Inj IV Q8H PRN Nausea And Vomiting Simple Syrup 15 ml 10/28/20 13:18 Simple Syrup 15 Ml FEEDTUBE PRN PRN Hypoglycemia Simple Syrup 30 ml 10/28/20 13:18 Simple Syrup 15 Ml FEEDTUBE PRN PRN Hypoglycemia Sodium Bicarbonate 325 mg 10/28/20 13:18 Sodium Bicarbonate 325 Mg Tab FEEDTUBE PRN PRN For Clogged Feeding Tube Sodium Chloride 5 ml 10/26/20 17:25 Sodium Chloride 0.9% 500 Ml Ivpb IV DIRECT PRN [facility] Sodium Chloride 10 ml 10/27/20 10:00 10/30/20 09:16 Sodium Chloride 0.9% 10 Ml Flush Syringe IV 10 ml BID MARSHALL Administration Sodium Chloride 10 ml 10/26/20 22:22 Sodium Chloride 0.9% 10 Ml Flush Syringe IV PRN PRN LINE FLUSH Sodium Hypochlorite 1 applic 10/28/20 10:00 10/30/20 09:16 Sodium Hypochlorite, Dakin's 1/2 Strength (0.25%) 473 Ml Topical Soln TP 1 applicatio BID MARSHALL Administration Nutrition/Malnutrition Assess - Dietary Evaluation Nutrition/Malnutrition Findings: Nutrition Notes Start: 10/27/20 09:15 Freq: Status: Active Protocol: Document 10/30/20 10:11 CW (Rec: 10/30/20 10:25 CW [id number]) Nutrition Notes Initial or Follow up Reassessment Current Diagnosis Acute Kidney Injury,Decubitus( Pressure Ulcer),Sepsis, Hypertension,Respiratory Failure,Hyperlipidemia Other Pertinent Diagnosis AMS, MRSA, Encephalopathy, Metabiloc Acidosis, pneu ,FTT Current Diet Nepro 50 ml/hr Labs/Tests K 3.0 BUN 28 Cr 0.6 BG 214 Pertinent Medications KCL 20 mEq Levophed NaHCO3 LR 1L Height 6 ft 2 in Weight 107 kg [place] Body Weight (kg) 86.36 BMI 30.2 Weight change and time frame Weight stable Weight Status Obese Subjective/Other Information F/U for TF at goal and vent status. Pt remains on mechanical vent requiring TF. Nepro running at a trickle feed d/t pressors. No reports of trickle feed intolerance. Percent of energy/protein needs met: 22%/ 12% Burn Absent Trauma Absent Difficulty In Swallowing,Chewing Skin Integrity/Comment Multiple pressure ulcer,1 infected Current % PO Negligible Minimum of two criteria No Fluid Accumulation Mild (non-severe) #1 Nutrition Diagnosis Inadequate oral intake Diagnosis Progress(for reassessment Continues documentation) Is patient on ventilator? Yes Is Patient Ambulatory and/or Out of Bed No REE-([facility]-confined to bed) 2249.712 Kcal/Kg value to use for calculation 18 Approximate Energy Requirements Using 1926 kcal/Kg Calculation Used for Recommendations Kcal/kg Additional Notes protein needs: >163g (>2g/kgBW ) Fluid needs 1 ml/kcal Nutrition Intervention Change Diet Order: TF Nutrition Support: Nepro at 50 ml/hr with a free water flush of 215 ml q4h Kcal 2,160 Protein (gm) 97 Fluid (mL) 1,362 Goal #1 TF at goal Goal #2 Meet EER as best as possible via TF Anticipated Discharge Needs: unable to determine at this time Follow-Up By: 11/03/20 Additional Comments F/U TF at goal, vent status <CHARLIE HERBERT - Last Filed: 10/31/20 16:15> Assessment and Plan Assessment and plan: I saw and evaluated the patient. I agree with the findings and the plan of care as documented in the Nurse Practitioner's~note, with the following corrections and additions. Hospitalist Physical - Constitutional Vitals: Temp Pulse Resp BP Pulse Ox 99 F 88 20 103/58 96 10/31/20 12:00 10/31/20 14:15 10/31/20 14:15 10/31/20 14:15 10/31/20 14:15 HEART Score - HEART Score Troponin: Troponin T 0.062 ng/mL (0.00-0.029) H 10/26/20 17:25 Results - Labs CBC & Chem 7: 10/31/20 04:37 10/31/20 04:37 Labs: Laboratory Last Values WBC 21.7 K/mm3 (4.5-11.0) H 10/31/20 04:37 RBC 3.96 M/mm3 (3.65-5.03) 10/31/20 04:37 Hgb 12.2 gm/dl (11.8-15.2) 10/31/20 04:37 Hct 37.0 % (35.5-45.6) 10/31/20 04:37 MCV 94 fl (84-94) 10/31/20 04:37 MCH 31 pg (28-32) 10/31/20 04:37 MCHC 33 % (32-34) 10/31/20 04:37 RDW 16.1 % (13.2-15.2) H 10/31/20 04:37 Plt Count 39 K/mm3 (140-440) L 10/31/20 04:37 Add Manual Diff Complete 10/27/20 03:30 Total Counted 100 10/27/20 03:30 Seg Neuts % (Manual) 57.0 % (40.0-70.0) 10/27/20 03:30 Band Neutrophils % 17.0 % 10/27/20 03:30 Lymphocytes % (Manual) 18.0 % (13.4-35.0) 10/27/20 03:30 Monocytes % (Manual) 2.0 % (0.0-7.3) 10/27/20 03:30 Eosinophils % (Manual) 2.0 % (0.0-4.3) 10/27/20 03:30 Metamyelocytes % 4.0 % 10/27/20 03:30 Nucleated RBC % Not Reportable 10/27/20 03:30 Seg Neutrophils # Man 11.6 K/mm3 (1.8-7.7) H 10/27/20 03:30 Band Neutrophils # 3.5 K/mm3 10/27/20 03:30 Lymphocytes # (Manual) 3.7 K/mm3 (1.2-5.4) 10/27/20 03:30 Abs React Lymphs (Man) 0.0 K/mm3 10/27/20 03:30 Monocytes # (Manual) 0.4 K/mm3 (0.0-0.8) 10/27/20 03:30 Eosinophils # (Manual) 0.4 K/mm3 (0.0-0.4) 10/27/20 03:30 Basophils # (Manual) 0.0 K/mm3 (0.0-0.1) 10/27/20 03:30 Metamyelocytes # 0.8 K/mm3 10/27/20 03:30 Myelocytes # 0.0 K/mm3 10/27/20 03:30 Promyelocytes # 0.0 K/mm3 10/27/20 03:30 Blast Cells # 0.0 K/mm3 10/27/20 03:30 WBC Morphology Not Reportable 10/27/20 03:30 Hypersegmented Neuts Not Reportable 10/27/20 03:30 Hyposegmented Neuts Not Reportable 10/27/20 03:30 Hypogranular Neuts Not Reportable 10/27/20 03:30 Smudge Cells Not Reportable 10/27/20 03:30 Toxic Granulation Not Reportable 10/27/20 03:30 Toxic Vacuolation Not Reportable 10/27/20 03:30 Dohle Bodies Not Reportable 10/27/20 03:30 Pelger-Huet Anomaly Not Reportable 10/27/20 03:30 Kassi Rods Not Reportable 10/27/20 03:30 Platelet Estimate Consistent w auto 10/27/20 03:30 Clumped Platelets Not Reportable 10/27/20 03:30 Plt Clumps, EDTA Not Reportable 10/27/20 03:30 Large Platelets Not Reportable 10/27/20 03:30 Giant Platelets Not Reportable 10/27/20 03:30 Platelet Satelliting Not Reportable 10/27/20 03:30 Plt Morphology Comment Not Reportable 10/27/20 03:30 RBC Morphology Not Reportable 10/27/20 03:30 Dimorphic RBCs Not Reportable 10/27/20 03:30 Polychromasia Not Reportable 10/27/20 03:30 Hypochromasia Few 10/27/20 03:30 Poikilocytosis Not Reportable 10/27/20 03:30 Anisocytosis Few 10/27/20 03:30 Microcytosis Not Reportable 10/27/20 03:30 Macrocytosis Not Reportable 10/27/20 03:30 Spherocytes Not Reportable 10/27/20 03:30 Pappenheimer Bodies Not Reportable 10/27/20 03:30 Sickle Cells Not Reportable 10/27/20 03:30 Target Cells Not Reportable 10/27/20 03:30 Tear Drop Cells Not Reportable 10/27/20 03:30 Ovalocytes Not Reportable 10/27/20 03:30 Helmet Cells Not Reportable 10/27/20 03:30 [place] Bodies Not Reportable 10/27/20 03:30 Marianna Rings Not Reportable 10/27/20 03:30 Rhea Cells Not Reportable 10/27/20 03:30 Bite Cells Not Reportable 10/27/20 03:30 Crenated Cell Not Reportable 10/27/20 03:30 Elliptocytes Not Reportable 10/27/20 03:30 Acanthocytes (Spur) Not Reportable 10/27/20 03:30 Rouleaux Not Reportable 10/27/20 03:30 Hemoglobin C Crystals Not Reportable 10/27/20 03:30 Schistocytes Not Reportable 10/27/20 03:30 Malaria parasites Not Reportable 10/27/20 03:30 Richard Bodies Not Reportable 10/27/20 03:30 Hem Pathologist Commnt No 10/27/20 03:30 APTT 27.9 Sec. (24.2-36.6) 10/26/20 17:25 ABG pH 7.517 (7.320-7.450) H 10/31/20 03:42 POC ABG pCO2 25.7 mmHg (32.0-48.0) L 10/31/20 03:42 ABG pCO2 39.5 mm Hg 10/26/20 17:30 POC ABG pO2 52.3 mmHg (83-108) L 10/31/20 03:42 ABG pO2 312.4 mm Hg (80.0-90.0) H 10/26/20 17:30 POC ABG HCO3 20.4 10/31/20 03:42 ABG HCO3 16.4 mmol/L (20.0-26.0) L 10/26/20 17:30 ABG O2 Saturation 91.5 (0-100) 10/31/20 03:42 ABG O2 Content 15.9 (0.0-44) 10/26/20 17:30 POC ABG Base Excess -1.1 10/31/20 03:42 ABG Base Excess -10.4 mmol/L (-2.0-3.0) L 10/26/20 17:30 ABG Hemoglobin 12.9 (12.0-17.5) 10/31/20 03:42 ABG Oxyhemoglobin 90.8 (94-98) L 10/31/20 03:42 ABG Carboxyhemoglobin 1.1 % (0.0-5.0) 10/26/20 17:30 ABG Methemoglobin 0 (0.0-1.5) 10/31/20 03:42 ABG Sodium 137.2 mmol/L (136.0-145.0) 10/31/20 03:42 ABG Potassium 3.4 mmol/L (3.40-4.50) 10/31/20 03:42 ABG Chloride 109.0 mmol/L (98-107) H 10/31/20 03:42 ABG Glucose 147 mg/dL (65-95) H 10/31/20 03:42 Oxyhemoglobin 97.7 % (95.0-99.0) 10/26/20 17:30 Carboxyhemoglobin 0.8 (0.5-1.5) 10/31/20 03:42 FiO2 100 % 10/26/20 17:30 FiO2 % 30 10/31/20 03:42 Sodium 141 mmol/L (137-145) 10/31/20 04:37 Potassium 3.6 mmol/L (3.6-5.0) 10/31/20 04:37 Chloride 108.4 mmol/L (98-107) H 10/31/20 04:37 Carbon Dioxide 23 mmol/L (22-30) 10/31/20 04:37 Anion Gap 13 mmol/L 10/31/20 04:37 BUN 25 mg/dL (9-20) H 10/31/20 04:37 Creatinine 0.5 mg/dL (0.8-1.3) L 10/31/20 04:37 Estimated GFR > 60 ml/min 10/31/20 04:37 BUN/Creatinine Ratio 50 % 10/31/20 04:37 Glucose 140 mg/dL (75-100) H 10/31/20 04:37 POC Glucose 125 mg/dL (70-105) H 10/31/20 11:12 Hemoglobin A1c 5.5 % (4-6) 10/27/20 04:42 Lactic Acid 4.30 mmol/L (0.7-2.0) H* 10/31/20 Unknown Calcium 6.1 mg/dL (8.4-10.2) L 10/31/20 04:37 Phosphorus 2.80 mg/dL (2.5-4.5) 10/28/20 00:40 Magnesium 1.50 mg/dL (1.7-2.3) L 10/31/20 04:37 Total Bilirubin 0.20 mg/dL (0.1-1.2) 10/29/20 05:15 AST 14 units/L (5-40) 10/29/20 05:15 ALT 12 units/L (7-56) 10/29/20 05:15 Alkaline Phosphatase 98 units/L (35-129) 10/29/20 05:15 Total Creatine Kinase 31 units/L (55-170) L 10/26/20 17:28 Troponin T 0.062 ng/mL (0.00-0.029) H 10/26/20 17:25 Total Protein 6.0 g/dL (6.3-8.2) L 10/29/20 05:15 Albumin 1.0 g/dL (3.9-5) L 10/29/20 05:15 Albumin/Globulin Ratio 0.2 % 10/29/20 05:15 Triglycerides 190 mg/dL (2-149) H 10/26/20 17:25 Cholesterol 92 mg/dL (50-199) 10/26/20 17:25 LDL Cholesterol Direct 33 mg/dL (50-130) L 10/26/20 17:25 HDL Cholesterol 18 mg/dL (40-59) L 10/26/20 17:25 Cholesterol/HDL Ratio 5.11 % 10/26/20 17:25 TSH 1.490 mlU/mL (0.270-4.200) 10/26/20 17:28 Arterial Blood Glucose 147 mg/dL (65-95) H 10/31/20 03:42 Arterial Blood Ionized Calcium 4.0 mg/dL (4.6-5.3) L 10/31/20 03:42 Urine Color Yellow (Yellow) 10/27/20 Unknown Urine Turbidity Turbid (Clear) 10/27/20 Unknown Urine pH 8.0 (5.0-7.0) H 10/27/20 Unknown Ur Specific [place] 1.020 (1.003-1.030) 10/27/20 Unknown Urine Protein >500 mg/dL (Negative) 10/27/20 Unknown Urine Glucose (UA) Neg mg/dL (Negative) 10/27/20 Unknown Urine Ketones Neg mg/dL (Negative) 10/27/20 Unknown Urine Blood Sm (Negative) 10/27/20 Unknown Urine Nitrite Neg (Negative) 10/27/20 Unknown Urine Bilirubin Neg (Negative) 10/27/20 Unknown Urine Urobilinogen < 2.0 mg/dL (<2.0) 10/27/20 Unknown Ur Leukocyte Esterase Mod (Negative) 10/27/20 Unknown Urine WBC (Auto) > 182.0 /HPF (0.0-6.0) H 10/27/20 Unknown Urine RBC (Auto) 35.0 /HPF (0.0-6.0) 10/27/20 Unknown Urine WBC Clumps 3+ /HPF 10/27/20 Unknown Urine Mucus 3+ /HPF 10/27/20 Unknown Urine Yeast (Budding) 3+ /HPF 10/27/20 Unknown Vancomycin Trough 22.0 ug/mL (5.0-20.0) H 10/30/20 Unknown Salicylates < 0.3 mg/dL (2.8-20.0) L 10/26/20 17:28 Acetaminophen 5.0 ug/mL (10.0-30.0) L 10/26/20 17:28 Coronavirus (PCR) Negative (Negative) 10/27/20 Unknown Blood Type O POSITIVE 10/30/20 09:30 Antibody Screen Negative 10/30/20 09:30 Crossmatch See Detail 10/30/20 09:30 Microbiology: Microbiology 10/27/20 06:05 Urine,Catheterized - Straight Catheter Urine Culture - Final 10/26/20 Unknown Peripheral/Venous Blood Culture - Final Proteus Mirabilis 10/26/20 Unknown Peripheral/Venous Blood Culture - Final Proteus Mirabilis Rivas/IV: Voiding Method Indwelling Catheter Active Medications - Current Medications Current Medications: Generic Name Dose Route Start Last Admin Trade Name Freq PRN Reason Stop Dose Admin Acetaminophen 650 mg 10/26/20 22:22 10/29/20 08:05 Acetaminophen 325 Mg Tab PO 650 mg Q4H PRN Administration Pain MILD(1-3)/Fever >100.5/TIERNEY Albumin Human 12.5 gm 10/31/20 14:00 10/31/20 14:26 Albumin Human 25% (12.5 Gm/50 Ml) Inj IV 11/02/20 06:01 12.5 gm Q8HR MARSHALL Administration Amiodarone HCl 200 mg 10/31/20 12:00 10/31/20 13:19 Amiodarone 200 Mg Tab PO 200 mg BID MARSHALL Administration Lipase/Protease/Amylase 1 each 10/28/20 13:18 Lipase 10,500/Protease 25,000/Amylase 43,750 (Units) Dr Cap FEEDTUBE PRN PRN For Clogged Feeding Tube Famotidine 20 mg 10/28/20 10:00 10/31/20 09:56 Famotidine 20 Mg/2 Ml Inj IV 20 mg BID MARSHALL Administration Fentanyl 50 mcg 10/26/20 17:25 Fentanyl 100 Mcg/2 Ml Inj IV Q10MIN PRN ANALGESIA Fentanyl 50 mcg 10/27/20 10:39 10/29/20 16:05 Fentanyl 100 Mcg/2 Ml Inj IV 50 mcg Q2H PRN Administration Pain , Severe (7-10) Hydrophilic Ointment 1 applic 10/26/20 17:25 Lip Therapy Vaseline TP Q2HR PRN Dry Lips Fentanyl Citrate 2,000 mcg in 100 mls @ 4.165 mls/hr 10/26/20 18:00 10/31/20 08:30 Fentanyl Drip Premix IV 1 mcg/kg/hr TITR MARSHALL 4.165 mls/hr Administration Protocol 1 MCG/KG/HR Norepinephrine 4 mg in 250 mls @ 112.5 mls/hr 10/28/20 01:00 10/31/20 13:16 Levophed Drip 4 Mg/Ns 250 Ml IV 8 mcg/min TITR MARSHALL 30 mls/hr Administration Protocol 30 MCG/MIN Amiodarone HCl 900 mg/ 500 mls @ 33.333 mls/hr 10/28/20 01:00 10/31/20 04:27 Dextrose IV 11/01/20 01:00 0.5 mg/min DIRECT MARSHALL 16.66 mls/hr Administration Protocol 1 MG/MIN Vasopressin 20 unit/ Sodium 101 mls @ 9.09 mls/hr 10/28/20 16:00 Chloride IV TITR MARSHALL Protocol 0.03 UNITS/MIN Ceftriaxone Sodium 2 gm in 100 mls @ 200 mls/hr 10/29/20 13:00 10/31/20 13:17 Rocephin/Ns 2 Gm/100 Ml IV 11/12/20 13:29 200 mls/hr Q24H MARSHALL Administration Protocol Metronidazole 500 mg in 100 mls @ 100 mls/hr 10/29/20 14:00 10/31/20 14:26 Flagyl 500 Mg/100 Ml IV 11/12/20 14:59 100 mls/hr Q8H MARSHALL Administration Protocol Vancomycin HCl 1 gm in 250 mls @ 166.667 mls/hr 11/01/20 06:00 Vancomycin/Ns 1 Gm/250 Ml IV 11/01/20 12:00 Q24H MARSHALL Multi-Ingred Cream/Lotion/Oil/Oint 1 applic 10/26/20 17:25 Mineral Oil/Petrolatum, White Ophth Oint 3.5 Gm OU Q4HR PRN Dry Eye(s) Ondansetron HCl 4 mg 10/26/20 22:22 Ondansetron 4 Mg/2 Ml Inj IV Q8H PRN Nausea And Vomiting Simple Syrup 15 ml 10/28/20 13:18 Simple Syrup 15 Ml FEEDTUBE PRN PRN Hypoglycemia Simple Syrup 30 ml 10/28/20 13:18 Simple Syrup 15 Ml FEEDTUBE PRN PRN Hypoglycemia Sodium Bicarbonate 325 mg 10/28/20 13:18 Sodium Bicarbonate 325 Mg Tab FEEDTUBE PRN PRN For Clogged Feeding Tube Sodium Chloride 5 ml 10/26/20 17:25 Sodium Chloride 0.9% 500 Ml Ivpb IV DIRECT PRN [employer] Sodium Chloride 10 ml 10/27/20 10:00 10/31/20 09:57 Sodium Chloride 0.9% 10 Ml Flush Syringe IV 10 ml BID MARSHALL Administration Sodium Chloride 10 ml 10/26/20 22:22 Sodium Chloride 0.9% 10 Ml Flush Syringe IV PRN PRN LINE FLUSH Sodium Hypochlorite 1 applic 10/28/20 10:00 10/31/20 09:56 Sodium Hypochlorite, Dakin's 1/2 Strength (0.25%) 473 Ml Topical Soln TP 1 applicatio BID MARSHALL Administration Nutrition/Malnutrition Assess - Dietary Evaluation Nutrition/Malnutrition Findings: Nutrition Notes Start: 10/27/20 09:15 Freq: Status: Active Protocol: Document 10/31/20 10:52 CW (Rec: 10/31/20 11:04 CW [id number]) Nutrition Notes Initial or Follow up Reassessment Current Diagnosis Acute Kidney Injury,Decubitus( Pressure Ulcer),Sepsis, Hypertension,Respiratory Failure,Hyperlipidemia Other Pertinent Diagnosis AMS, MRSA, Encephalopathy, Metabiloc Acidosis, pneu ,FTT Labs/Tests BUN 25 Cr 0.5 BG 140 Pertinent Medications Levophed Height 6 ft 2 in Weight 107 kg [place] Body Weight (kg) 86.36 BMI 30.2 Weight change and time frame Weight stable Weight Status Obese Subjective/Other Information MD pacheco consult for TF change to prvode more protein d/t improved renal related labs and need for wound healing. Will change to Vital HP. Percent of energy/protein needs met: 22%/ 12% Burn Absent Trauma Absent Difficulty In Swallowing,Chewing Skin Integrity/Comment Multiple pressure ulcer,1 infected Current % PO Negligible Minimum of two criteria No Fluid Accumulation Mild (non-severe) #1 Nutrition Diagnosis Inadequate oral intake Is patient on ventilator? Yes Is Patient Ambulatory and/or Out of Bed No REE-([facility]-confined to bed) 2249.712 Kcal/Kg value to use for calculation 18 Approximate Energy Requirements Using 1926 kcal/Kg Calculation Used for Recommendations Kcal/kg Additional Notes protein needs: >163g (>2g/kgBW ) Fluid needs 1 ml/kcal Nutrition Intervention Change Diet Order: Change TF to Vital HP trickle feed at 10 ml/hr and advance towards goal rate when medically feasible Nutrition Support: Vital HP at 80 ml/hr with aa free water flush of 50 ml q4h Kcal 1,920 Protein (gm) 168 Fluid (mL) 1,605 Goal #1 TF at goal Goal #2 Meet EER as best as possible via TF Goal #3 wound healing Anticipated Discharge Needs: unable to determine at this time Follow-Up By: 11/03/20 Additional Comments F/U TF at goal, vent status
--- NOTE | 2020-10-30 11:45 | Progress Note ---
Assessment and Plan Cultures: 10/26/2020 tracheal aspirate culture: MRSA 10/26/2020 blood culture: Proteus 10/27/2020 urine culture: in process A/P: 75-year-old male, [facility] resident with seizure disorder, hypertension, depression, hyperlipidemia, chronic encephalopathy was sent to the hospital with worsening mental status: #Septic shock, Proteus bacteremia: Multifactorial from infected sacral decubitus ulcer, bilateral pneumonia, UTI #Necrotic, infected sacral decubitus ulcer: underwent debridement 10/29/2020, also noted to have brittle coccyx consistent with osteomyelitis. #UTI: UA with significant pyuria. #Bilateral pneumonia: Noted on CT. Possibly some aspiration. #FAZAL: Renally dose antibiotics. #Acute respiratory failure: on the vent. Recs: -continue Ceftriaxone + Flagyl x 14 days from debridement (prolonged abx not of much benefit even though there is osteomyelitis, main stay will be offloading and wound care) -continue vancomycin x total 7 days, D5 today -Overall, poor prognosis given underlying medical comorbidities. Stephania Starr MD, FACP [facility], [place], [facility] ([facility]) O: [phone] F: [phone] Subjective Date of service: 10/30/20 Principal diagnosis: sepsis Interval history: Remains intubated, no fever, remains on pressors. Underwent debridement yesterday evening. Objective - Exam Narrative Exam: Physical Exam: Constitutional: sedated, intubated, on the vent Head, Ears, Nose: Normocephalic, atraumatic. External ears, nose normal Eyes: Conjunctivae/corneas clear. No icterus. No ptosis. Neck: intubated Oral: intubated Cardiovascular: S1, S2 + Respiratory: AE fair bilaterally and equal GI: Soft, bowel sounds + Musculoskeletal: sacral dressing Skin: No rash or abscess Hem/Lymphatic: No palpable cervical or supraclavicular nodes. No lymphangitis Psych: no agitation Neurological: sedated, intubated, on the vent, exam limited - Constitutional Vitals: Vital Signs Temp Pulse Resp BP Pulse Ox 97 F L 63 15 121/67 97 10/30/20 08:00 10/30/20 11:30 10/30/20 11:30 10/30/20 11:30 10/30/20 11:30 Temperature -Last 24 Hours Temperature 97 F Temperature 97.0 F Temperature 97.1 F Temperature 99.4 F Temperature 99.0 F - Labs CBC & Chem 7: 10/30/20 Unknown 10/30/20 04:54 Labs: Abnormal lab results 10/29/20 10/29/20 10/29/20 Range/Units 11:41 15:56 23:24 WBC (4.5-11.0) K/mm3 RBC (3.65-5.03) M/mm3 Hgb (11.8-15.2) gm/dl Hct (35.5-45.6) % MCV (84-94) fl RDW (13.2-15.2) % Plt Count (140-440) K/mm3 POC ABG pO2 (83-108) mmHg ABG Hemoglobin (12.0-17.5) ABG Oxyhemoglobin (94-98) ABG Potassium (3.40-4.50) mmol/L ABG Chloride (98-107) mmol/L ABG Glucose (65-95) mg/dL Potassium (3.6-5.0) mmol/L BUN (9-20) mg/dL Creatinine (0.8-1.3) mg/dL Glucose (75-100) mg/dL POC Glucose 121 H 132 H 175 H (70-105) mg/dL Calcium (8.4-10.2) mg/dL Arterial Blood Glucose (65-95) mg/dL Arterial Blood Ionized Calcium (4.6-5.3) mg/dL Vancomycin Trough (5.0-20.0) ug/mL Crossmatch 10/30/20 10/30/20 10/30/20 Range/Units 02:26 04:54 04:54 WBC 20.7 H (4.5-11.0) K/mm3 RBC 2.28 L (3.65-5.03) M/mm3 Hgb 7.0 L (11.8-15.2) gm/dl Hct 21.9 L (35.5-45.6) % MCV 96 H (84-94) fl RDW 17.0 H (13.2-15.2) % Plt Count 90 L (140-440) K/mm3 POC ABG pO2 76.6 L (83-108) mmHg ABG Hemoglobin 6.4 L (12.0-17.5) ABG Oxyhemoglobin 93.8 L (94-98) ABG Potassium 2.9 L (3.40-4.50) mmol/L ABG Chloride 110.0 H (98-107) mmol/L ABG Glucose 212 H (65-95) mg/dL Potassium 3.0 L D (3.6-5.0) mmol/L BUN 28 H (9-20) mg/dL Creatinine 0.6 L (0.8-1.3) mg/dL Glucose 214 H (75-100) mg/dL POC Glucose (70-105) mg/dL Calcium 6.2 L (8.4-10.2) mg/dL Arterial Blood Glucose 212 H (65-95) mg/dL Arterial Blood Ionized Calcium 3.9 L (4.6-5.3) mg/dL Vancomycin Trough (5.0-20.0) ug/mL Crossmatch 10/30/20 10/30/20 10/30/20 Range/Units 05:14 09:30 Unknown WBC (4.5-11.0) K/mm3 RBC (3.65-5.03) M/mm3 Hgb (11.8-15.2) gm/dl Hct (35.5-45.6) % MCV (84-94) fl RDW (13.2-15.2) % Plt Count (140-440) K/mm3 POC ABG pO2 (83-108) mmHg ABG Hemoglobin (12.0-17.5) ABG Oxyhemoglobin (94-98) ABG Potassium (3.40-4.50) mmol/L ABG Chloride (98-107) mmol/L ABG Glucose (65-95) mg/dL Potassium (3.6-5.0) mmol/L BUN (9-20) mg/dL Creatinine (0.8-1.3) mg/dL Glucose (75-100) mg/dL POC Glucose 187 H (70-105) mg/dL Calcium (8.4-10.2) mg/dL Arterial Blood Glucose (65-95) mg/dL Arterial Blood Ionized Calcium (4.6-5.3) mg/dL Vancomycin Trough 22.0 H (5.0-20.0) ug/mL Crossmatch See Detail 10/30/20 Range/Units Unknown WBC 21.1 H (4.5-11.0) K/mm3 RBC 2.36 L (3.65-5.03) M/mm3 Hgb 7.3 L (11.8-15.2) gm/dl Hct 22.7 L (35.5-45.6) % MCV 96 H (84-94) fl RDW 17.1 H (13.2-15.2) % Plt Count 73 L (140-440) K/mm3 POC ABG pO2 (83-108) mmHg ABG Hemoglobin (12.0-17.5) ABG Oxyhemoglobin (94-98) ABG Potassium (3.40-4.50) mmol/L ABG Chloride (98-107) mmol/L ABG Glucose (65-95) mg/dL Potassium (3.6-5.0) mmol/L BUN (9-20) mg/dL Creatinine (0.8-1.3) mg/dL Glucose (75-100) mg/dL POC Glucose (70-105) mg/dL Calcium (8.4-10.2) mg/dL Arterial Blood Glucose (65-95) mg/dL Arterial Blood Ionized Calcium (4.6-5.3) mg/dL Vancomycin Trough (5.0-20.0) ug/mL Crossmatch
--- NOTE | 2020-10-30 13:01 | Progress Note ---
Assessment and Plan 75 year old male with sepsis. Possible etiology could be infected sacral wound. Extremely poor prognosis as he is intubated requiring ventilator support, and currently on vasopressors. Wound debulking debridement done yesterday showing clinical improvement today with decrease in WBC, resolution of tachycardia. Pt severely malnourished, with multiple co-morbidities and acute issues requiring supportive care. Pt is not a candidate at this time for more aggressive debridement as he will not be able to heal the wound which may require removal of at least 90% skin and soft tissue over his buttock, extending over his left hip, and dissecting deep towards his rectum. His poor nutrition status, osteomyelitis of the sacrum, combined with the fact that he will continue to be bed bound makes his overall prognosis poor with chance of healing unlikely. recommend continue BID dressing changes and supportive care. If he can recover, and be nutritionally optimized he may possibly be a candidate for further debridement. Subjective Date of service: 10/30/20 Narrative: No acute events overnight. Here to examine wound with wound care nurse. Pt currently receiving blood transfusion. Objective Vital Signs - 12hr 10/30/20 10/30/20 10/30/20 01:00 01:15 01:30 Temperature Pulse Rate 67 67 67 Pulse Rate [ From Monitor] Respiratory 20 20 17 Rate Blood Pressure 129/69 127/67 118/66 O2 Sat by Pulse 100 100 100 Oximetry 10/30/20 10/30/20 10/30/20 01:45 02:00 02:15 Temperature Pulse Rate 68 66 65 Pulse Rate [ From Monitor] Respiratory 20 17 18 Rate Blood Pressure 121/67 119/65 122/67 O2 Sat by Pulse 100 100 100 Oximetry 10/30/20 10/30/20 10/30/20 02:30 02:45 03:00 Temperature Pulse Rate 66 66 65 Pulse Rate [ From Monitor] Respiratory 20 20 20 Rate Blood Pressure 123/65 123/65 122/66 O2 Sat by Pulse 100 100 100 Oximetry 10/30/20 10/30/20 10/30/20 03:15 03:28 03:30 Temperature 97.0 F L Pulse Rate 67 67 Pulse Rate [ From Monitor] Respiratory 21 20 Rate Blood Pressure 126/65 123/69 O2 Sat by Pulse 100 96 Oximetry 10/30/20 10/30/20 10/30/20 03:45 04:00 04:15 Temperature Pulse Rate 65 66 66 Pulse Rate [ 66 From Monitor] Respiratory 20 19 21 Rate Blood Pressure 119/67 127/67 122/67 O2 Sat by Pulse 100 97 100 Oximetry 10/30/20 10/30/20 10/30/20 04:30 04:46 05:00 Temperature Pulse Rate 68 66 67 Pulse Rate [ From Monitor] Respiratory 20 20 19 Rate Blood Pressure 129/68 129/68 131/69 O2 Sat by Pulse 100 100 96 Oximetry 10/30/20 10/30/20 10/30/20 05:15 05:30 05:45 Temperature Pulse Rate 66 66 66 Pulse Rate [ From Monitor] Respiratory 22 19 21 Rate Blood Pressure 132/70 124/67 121/66 O2 Sat by Pulse 93 92 91 Oximetry 10/30/20 10/30/20 10/30/20 06:00 06:15 06:30 Temperature Pulse Rate 66 68 Pulse Rate [ From Monitor] Respiratory 22 20 Rate Blood Pressure 120/66 119/67 119/67 O2 Sat by Pulse 93 95 Oximetry 10/30/20 10/30/20 10/30/20 06:45 07:00 07:15 Temperature Pulse Rate 66 65 66 Pulse Rate [ From Monitor] Respiratory 22 22 16 Rate Blood Pressure 106/64 106/64 120/64 O2 Sat by Pulse 96 95 98 Oximetry 10/30/20 10/30/20 10/30/20 07:28 07:30 07:45 Temperature Pulse Rate 64 64 64 Pulse Rate [ From Monitor] Respiratory 18 21 Rate Blood Pressure 121/65 121/65 110/59 O2 Sat by Pulse 96 97 94 Oximetry 10/30/20 10/30/20 10/30/20 08:00 08:15 08:30 Temperature 97 F L Pulse Rate 67 62 62 Pulse Rate [ 64 From Monitor] Respiratory 20 20 21 Rate Blood Pressure 121/65 121/64 121/64 O2 Sat by Pulse 97 97 98 Oximetry 10/30/20 10/30/20 10/30/20 08:45 09:00 09:15 Temperature Pulse Rate 63 65 64 Pulse Rate [ From Monitor] Respiratory 21 21 20 Rate Blood Pressure 124/63 115/58 121/65 O2 Sat by Pulse 98 99 97 Oximetry 10/30/20 10/30/20 10/30/20 09:30 09:45 10:00 Temperature Pulse Rate 63 62 62 Pulse Rate [ From Monitor] Respiratory 18 19 20 Rate Blood Pressure 125/62 125/64 121/66 O2 Sat by Pulse 98 96 99 Oximetry 10/30/20 10/30/20 10/30/20 10:15 10:20 10:30 Temperature Pulse Rate 62 61 61 Pulse Rate [ From Monitor] Respiratory 20 19 21 Rate Blood Pressure 126/67 126/67 124/68 O2 Sat by Pulse 98 100 99 Oximetry 10/30/20 10/30/20 10/30/20 10:40 10:50 11:00 Temperature Pulse Rate 60 66 59 L Pulse Rate [ From Monitor] Respiratory 20 20 20 Rate Blood Pressure 124/68 126/66 122/67 O2 Sat by Pulse 99 95 99 Oximetry 10/30/20 10/30/20 10/30/20 11:02 11:10 11:20 Temperature Pulse Rate 61 67 64 Pulse Rate [ From Monitor] Respiratory 20 20 Rate Blood Pressure 122/67 122/67 127/65 O2 Sat by Pulse 97 99 97 Oximetry 10/30/20 10/30/20 10/30/20 11:30 11:40 11:50 Temperature Pulse Rate 63 64 63 Pulse Rate [ From Monitor] Respiratory 15 18 18 Rate Blood Pressure 121/67 121/67 122/67 O2 Sat by Pulse 97 98 98 Oximetry 10/30/20 10/30/20 12:00 12:16 Temperature 97.4 F L Pulse Rate 62 66 Pulse Rate [ 62 From Monitor] Respiratory 15 17 Rate Blood Pressure 125/68 130/66 O2 Sat by Pulse 99 75 L Oximetry - General physical appearance chronically ill - Respiratory normal expansion, normal respiratory effort - Integumentary other (base of wound with nectrotic tissue directly on sacrum. Active drainage coming from pocket left posterior side. cavity was broken up with finger dissection, but tunnels all the way around towards the anterior left hip. surrounding would edges ischemic. further details of wound please read wound care) - Labs 10/30/20 Unknown 10/30/20 04:54 Diabetes panel 10/30/20 Range/Units 04:54 Sodium 140 (137-145) mmol/L Potassium 3.0 L D (3.6-5.0) mmol/L Chloride 105.4 (98-107) mmol/L Carbon Dioxide 24 D (22-30) mmol/L BUN 28 H (9-20) mg/dL Creatinine 0.6 L (0.8-1.3) mg/dL Glucose 214 H (75-100) mg/dL Calcium 6.2 L (8.4-10.2) mg/dL Calcium panel 10/30/20 Range/Units 04:54 Calcium 6.2 L (8.4-10.2) mg/dL Pituitary panel 10/30/20 Range/Units 04:54 Sodium 140 (137-145) mmol/L Potassium 3.0 L D (3.6-5.0) mmol/L Chloride 105.4 (98-107) mmol/L Carbon Dioxide 24 D (22-30) mmol/L BUN 28 H (9-20) mg/dL Creatinine 0.6 L (0.8-1.3) mg/dL Glucose 214 H (75-100) mg/dL Calcium 6.2 L (8.4-10.2) mg/dL Adrenal panel 10/30/20 Range/Units 04:54 Sodium 140 (137-145) mmol/L Potassium 3.0 L D (3.6-5.0) mmol/L Chloride 105.4 (98-107) mmol/L Carbon Dioxide 24 D (22-30) mmol/L BUN 28 H (9-20) mg/dL Creatinine 0.6 L (0.8-1.3) mg/dL Glucose 214 H (75-100) mg/dL Calcium 6.2 L (8.4-10.2) mg/dL
[2020-10-30] MEDS: cefTRIAXone/NS 2 GM/100 ML 2 GM/100 ML BAG IV SCH (14:22)
--- NOTE | 2020-10-30 14:54 | Progress Note ---
Assessment and Plan The pt is a 75-year-old male [facility] resident with a past medical history of seizure disorder, hypertension, depression, hyperlipidemia, chronic encephalopathy. He is intubated and sedated on evaluation and thus HPI is obtained per the chart. Pt was sent to the hospital for evaluation of AMS. Following arrival, pt diagnosed with necrotic sacral ulcer, sepsis with septic shock requiring vasopressor support, UTI, bilateral PNA with acute respiratory failure requiring intubation, COVID-19 testing negative, anemia, FAZAL. Pt was reported to have SVT prehospital for which he received IV adenosine and cardiology was consulted. tte reviewed - EF 55-60%, no significant abnormalities. Pt remains on Amiodarone Drip for arrhythmia suppression. Pt is intubated and sedated. Tele reviewed: SR 61. No events overnight. s/p wound debridement. Continue Amiodarone drip for arrhythmia suppression and HR optimization. Discontinue Digoxin. Wean vasopressors as tolerated. No systemic AC at this time in regards to AFib in setting of anemia and sacral ulcer. 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 Heparin has been discontinued. Management per primary team. Cont supportive management. The patient has been seen in conjunction with Dr. Lyndon Baldwin who agrees with the assessment and plan of care. - Patient Problems (1) AMS (altered mental status) Current Visit: Yes Status: Acute (2) Atrial fibrillation with RVR Current Visit: Yes Status: Acute (3) Acute respiratory failure Current Visit: Yes Status: Acute (4) Bilateral pneumonia Current Visit: Yes Status: Acute (5) Sepsis Current Visit: Yes Status: Acute (6) Sepsis associated hypotension Current Visit: Yes Status: Acute (7) Sacral decubitus ulcer, stage IV Current Visit: Yes Status: Acute (8) UTI (urinary tract infection) Current Visit: Yes Status: Acute (9) FAZAL (acute kidney injury) Current Visit: Yes Status: Acute (10) Hypomagnesemia Current Visit: Yes Status: Acute Subjective Date of service: 10/30/20 Principal diagnosis: sepsis Interval history: Pt is intubated and sedated. Tele reviewed: SR 61. No events overnight Objective Last Vital Signs Temp 97.4 F L 10/30/20 12:00 Pulse 62 10/30/20 14:50 Resp 20 10/30/20 14:50 BP 128/65 10/30/20 14:50 Pulse Ox 99 10/30/20 14:50 - Physical Examination General: Other (intubated, sedated) HEENT: Positive: Other Neck: Positive: neck supple, trachea midline Cardiac: Positive: Reg Rate and Rhythm, S1/S2 Lungs: Positive: Ventilated Respirations Neuro: Positive: Other (intubated, sedated) Abdomen: Negative: Tender Skin: Negative: Rash Musculoskeletal: No Pain Extremities: Present: upper extr. pulses, lower extr. pulses, edema - Labs and Meds CBC 10/30/20 10/30/20 Range/Units 04:54 Unknown WBC 20.7 H 21.1 H (4.5-11.0) K/mm3 RBC 2.28 L 2.36 L (3.65-5.03) M/mm3 Hgb 7.0 L 7.3 L (11.8-15.2) gm/dl Hct 21.9 L 22.7 L (35.5-45.6) % Plt Count 90 L 73 L (140-440) K/mm3 Comprehensive Metabolic Panel 10/30/20 Range/Units 04:54 Sodium 140 (137-145) mmol/L Potassium 3.0 L D (3.6-5.0) mmol/L Chloride 105.4 (98-107) mmol/L Carbon Dioxide 24 D (22-30) mmol/L BUN 28 H (9-20) mg/dL Creatinine 0.6 L (0.8-1.3) mg/dL Glucose 214 H (75-100) mg/dL Calcium 6.2 L (8.4-10.2) mg/dL - Imaging and Cardiology EKG: report reviewed, image reviewed Echo: report reviewed - Telemetry EKG Rhythm: Sinus Rhythm
[2020-10-30] MEDS: fentaNYL DRIP Premix 2,000 MCG/100 ML BAG IV SCH (15:32)
[2020-10-30] MEDS: VANCOMYCIN 1,250 MG in SODIUM CHLORIDE 0.9% 250ML 250 ML IV SCH (21:02)
--- NOTE | 2020-10-31 04:22 | XRay Report ---
CHEST 1 VIEW INDICATION: follow up respiratory failure COMPARISON: One day prior. FINDINGS: Support devices: Unchanged. Heart: Stable. Lungs/Pleura: Bilateral lung disease, unchanged. IMPRESSION: 1. No significant change. Signer Name: Bogdan Cheng MD Signed: 10/31/2020 4:18 AM Workstation Name: [id number]
[2020-10-31] MEDS: AMIODARONE 900 MG in DEXTROSE 5% IN WATER 482 ML IV SCH (04:27)
[2020-10-31 05:47] LABS: Hemoglobin 12.2 gm/dl (11.8-15.2); Mean Corpuscular HGB Conc 33 % (32-34); Mean Corpuscular Volume 94 fl (84-94); Red Blood Count 3.96 M/mm3 (3.65-5.03); Red Cell Distribution Width 16.1 % (13.2-15.2)
[2020-10-31 05:51] LABS: Platelet Count 39 K/mm3 (140-440)
[2020-10-31 05:52] LABS: Blood Urea Nitrogen 25 mg/dL (9-20); Calcium 6.1 mg/dL (8.4-10.2); Hemolysis Index 12
[2020-10-31 05:56] LABS: BUN/Creatinine Ratio 50
[2020-10-31] MEDS: metroNIDAZOLE/NS 500 MG/100 ML 500 MG/100 ML BAG IV SCH ×3 (06:25→21:38)
[2020-10-31] MEDS: NORepinephrine/NS 4 MG-250 ML 4 MG/250 ML BAG IV SCH ×3 (06:57→18:19)
[2020-10-31] MEDS: fentaNYL DRIP Premix 2,000 MCG/100 ML BAG IV SCH (08:30)
[2020-10-31] MEDS ORDERED: MAGNESIUM SULFATE 2 GM/50 ML BAG IV ONE (09:00)
[2020-10-31] MEDS: SODIUM HYPOCHLORITE, DAKIN'S 1/2 STRENGTH (0.25%) 473 ML TOPICAL SOLN TP SCH ×2 (09:56→22:00)
[2020-10-31] MEDS: FAMOTIDINE 20 MG/2 ML INJ IV SCH ×2 (09:56→21:38)
--- NOTE | 2020-10-31 10:12 | Progress Note ---
Assessment and Plan Cultures: 10/26/2020 tracheal aspirate culture: MRSA 10/26/2020 blood culture: Proteus 10/27/2020 urine culture: Mixed hien A/P: 75-year-old male, halfway resident with seizure disorder, hypertension, depression, hyperlipidemia, chronic encephalopathy was sent to the hospital with worsening mental status: #Septic shock, Proteus bacteremia: Multifactorial from infected sacral decubitus ulcer, bilateral pneumonia, UTI #Necrotic, infected sacral decubitus ulcer: underwent debridement 10/29/2020, also noted to have brittle coccyx consistent with osteomyelitis. #UTI: UA with significant pyuria. #Bilateral pneumonia: Noted on CT. Possibly some aspiration. #FAZAL: Renally dose antibiotics. #Acute respiratory failure: on the vent. Recs: -continue Ceftriaxone + Flagyl x 14 days from debridement (prolonged abx not of much benefit even though there is osteomyelitis, main stay will be offloading and wound care) -continue wound care. Appreciate Gen Surgery follow up -continue vancomycin x total 7 days, D6 today -Overall, poor prognosis given underlying medical comorbidities. Dr. Jack rounding this weekend, please call with questions. Stephania Starr MD, FACP [facility] ([facility] O: [phone] F: [phone] Subjective Date of service: 10/31/20 Principal diagnosis: sepsis Interval history: Afebrile. Remains on the vent. Remains on pressors. Objective - Exam Narrative Exam: Physical Exam: Constitutional: sedated, intubated, on the vent Head, Ears, Nose: Normocephalic, atraumatic. External ears, nose normal Eyes: Conjunctivae/corneas clear. No icterus. No ptosis. Neck: intubated Oral: intubated Cardiovascular: S1, S2 + Respiratory: AE fair bilaterally and equal GI: Soft, bowel sounds + Musculoskeletal: sacral dressing Skin: No rash or abscess Hem/Lymphatic: No palpable cervical or supraclavicular nodes. No lymphangitis Psych: no agitation Neurological: sedated, intubated, on the vent, exam limited - Constitutional Vitals: Vital Signs Temp Pulse Resp BP Pulse Ox 98.5 F 86 33 H 121/70 99 10/31/20 08:00 10/31/20 09:45 10/31/20 09:45 10/31/20 09:45 10/31/20 09:45 Temperature -Last 24 Hours Temperature 98.5 F Temperature 97.6 F Temperature 98 F Temperature 97.5 F Temperature 97.5 F Temperature 97.4 F - Labs CBC & Chem 7: 10/31/20 04:37 10/31/20 04:37 Labs: Abnormal lab results 10/30/20 10/30/20 10/30/20 Range/Units 09:30 11:40 17:51 WBC (4.5-11.0) K/mm3 RBC (3.65-5.03) M/mm3 Hgb (11.8-15.2) gm/dl Hct (35.5-45.6) % MCV (84-94) fl RDW (13.2-15.2) % Plt Count (140-440) K/mm3 ABG pH (7.320-7.450) POC ABG pCO2 (32.0-48.0) mmHg POC ABG pO2 (83-108) mmHg ABG Oxyhemoglobin (94-98) ABG Chloride (98-107) mmol/L ABG Glucose (65-95) mg/dL Chloride (98-107) mmol/L BUN (9-20) mg/dL Creatinine (0.8-1.3) mg/dL Glucose (75-100) mg/dL POC Glucose 183 H 136 H (70-105) mg/dL Lactic Acid (0.7-2.0) mmol/L Calcium (8.4-10.2) mg/dL Magnesium (1.7-2.3) mg/dL Arterial Blood Glucose (65-95) mg/dL Arterial Blood Ionized Calcium (4.6-5.3) mg/dL Vancomycin Trough (5.0-20.0) ug/mL Crossmatch See Detail 10/30/20 10/30/20 10/30/20 Range/Units 18:53 23:25 Unknown WBC (4.5-11.0) K/mm3 RBC (3.65-5.03) M/mm3 Hgb (11.8-15.2) gm/dl Hct (35.5-45.6) % MCV (84-94) fl RDW (13.2-15.2) % Plt Count (140-440) K/mm3 ABG pH (7.320-7.450) POC ABG pCO2 (32.0-48.0) mmHg POC ABG pO2 (83-108) mmHg ABG Oxyhemoglobin (94-98) ABG Chloride (98-107) mmol/L ABG Glucose (65-95) mg/dL Chloride (98-107) mmol/L BUN (9-20) mg/dL Creatinine (0.8-1.3) mg/dL Glucose (75-100) mg/dL POC Glucose 130 H (70-105) mg/dL Lactic Acid (0.7-2.0) mmol/L Calcium (8.4-10.2) mg/dL Magnesium (1.7-2.3) mg/dL Arterial Blood Glucose (65-95) mg/dL Arterial Blood Ionized Calcium (4.6-5.3) mg/dL Vancomycin Trough 21.4 H 22.0 H (5.0-20.0) ug/mL Crossmatch 10/30/20 10/31/20 10/31/20 Range/Units Unknown 03:42 04:37 WBC 21.1 H (4.5-11.0) K/mm3 RBC 2.36 L (3.65-5.03) M/mm3 Hgb 7.3 L (11.8-15.2) gm/dl Hct 22.7 L (35.5-45.6) % MCV 96 H (84-94) fl RDW 17.1 H (13.2-15.2) % Plt Count 73 L (140-440) K/mm3 ABG pH 7.517 H (7.320-7.450) POC ABG pCO2 25.7 L (32.0-48.0) mmHg POC ABG pO2 52.3 L (83-108) mmHg ABG Oxyhemoglobin 90.8 L (94-98) ABG Chloride 109.0 H (98-107) mmol/L ABG Glucose 147 H (65-95) mg/dL Chloride 108.4 H (98-107) mmol/L BUN 25 H (9-20) mg/dL Creatinine 0.5 L (0.8-1.3) mg/dL Glucose 140 H (75-100) mg/dL POC Glucose (70-105) mg/dL Lactic Acid (0.7-2.0) mmol/L Calcium 6.1 L (8.4-10.2) mg/dL Magnesium 1.50 L (1.7-2.3) mg/dL Arterial Blood Glucose 147 H (65-95) mg/dL Arterial Blood Ionized Calcium 4.0 L (4.6-5.3) mg/dL Vancomycin Trough (5.0-20.0) ug/mL Crossmatch 10/31/20 10/31/20 10/31/20 Range/Units 04:37 05:08 Unknown WBC 21.7 H (4.5-11.0) K/mm3 RBC (3.65-5.03) M/mm3 Hgb (11.8-15.2) gm/dl Hct (35.5-45.6) % MCV (84-94) fl RDW 16.1 H (13.2-15.2) % Plt Count 39 L (140-440) K/mm3 ABG pH (7.320-7.450) POC ABG pCO2 (32.0-48.0) mmHg POC ABG pO2 (83-108) mmHg ABG Oxyhemoglobin (94-98) ABG Chloride (98-107) mmol/L ABG Glucose (65-95) mg/dL Chloride (98-107) mmol/L BUN (9-20) mg/dL Creatinine (0.8-1.3) mg/dL Glucose (75-100) mg/dL POC Glucose 140 H (70-105) mg/dL Lactic Acid 4.30 H* (0.7-2.0) mmol/L Calcium (8.4-10.2) mg/dL Magnesium (1.7-2.3) mg/dL Arterial Blood Glucose (65-95) mg/dL Arterial Blood Ionized Calcium (4.6-5.3) mg/dL Vancomycin Trough (5.0-20.0) ug/mL Crossmatch
--- NOTE | 2020-10-31 10:21 | Electrocardiograph Report ---
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
--- NOTE | 2020-10-31 11:37 | Progress Note ---
Assessment and Plan Pt in AFib with CVR. Transition from IV amio to PO amio via feeding tube today. Wean vasopressors as tolerated. No systemic AC at this time in regards to AFib in setting of anemia requiring PRBC tx, thrombocytopenia (HIT panel ordered per primary), and sacral ulcer (pt is s/p debulking debridement but not a candidate at this time for more aggressive debridement given clinical instability and malnutrition per general surgery). Cont supportive management. The patient has been seen in conjunction with Dr. Lyndon Baldwin who agrees with the assessment and plan of care. - Patient Problems (1) AMS (altered mental status) Current Visit: Yes Status: Acute (2) Atrial fibrillation with RVR Current Visit: Yes Status: Acute (3) Acute respiratory failure Current Visit: Yes Status: Acute (4) Bilateral pneumonia Current Visit: Yes Status: Acute (5) Sepsis Current Visit: Yes Status: Acute (6) Sepsis associated hypotension Current Visit: Yes Status: Acute (7) Sacral decubitus ulcer, stage IV Current Visit: Yes Status: Acute (8) UTI (urinary tract infection) Current Visit: Yes Status: Acute (9) FAZAL (acute kidney injury) Current Visit: Yes Status: Acute (10) Hypomagnesemia Current Visit: Yes Status: Acute (11) Anemia Current Visit: Yes Status: Acute (12) Thrombocytopenia Current Visit: Yes Status: Acute Subjective Date of service: 10/31/20 Principal diagnosis: sepsis Interval history: pt remains intubated, sedated. tele reviewed - in AFib HR 80s, amio gtt infusing. levophed gtt infusing. Objective Last Vital Signs Temp 98.5 F 10/31/20 08:00 Pulse 86 10/31/20 09:45 Resp 33 H 10/31/20 09:45 BP 121/70 10/31/20 09:45 Pulse Ox 99 10/31/20 09:45 - Physical Examination General: Other (intubated, sedated) HEENT: Positive: Other Neck: Positive: neck supple, trachea midline Cardiac: Positive: irregularly irregular, S1/S2 Lungs: Positive: Decreased Breath Sounds, Oxygen, Ventilated Respirations Neuro: Positive: Other (intubated, sedated) Abdomen: Negative: Tender Skin: Negative: Rash Musculoskeletal: No Pain Extremities: Present: upper extr. pulses, lower extr. pulses, edema - Labs and Meds CBC 10/31/20 Range/Units 04:37 WBC 21.7 H (4.5-11.0) K/mm3 RBC 3.96 (3.65-5.03) M/mm3 Hgb 12.2 D (11.8-15.2) gm/dl Hct 37.0 D (35.5-45.6) % Plt Count 39 L (140-440) K/mm3 Comprehensive Metabolic Panel 10/31/20 Range/Units 04:37 Sodium 141 (137-145) mmol/L Potassium 3.6 (3.6-5.0) mmol/L Chloride 108.4 H (98-107) mmol/L Carbon Dioxide 23 (22-30) mmol/L BUN 25 H (9-20) mg/dL Creatinine 0.5 L (0.8-1.3) mg/dL Glucose 140 H (75-100) mg/dL Calcium 6.1 L (8.4-10.2) mg/dL - Imaging and Cardiology EKG: report reviewed, image reviewed Echo: report reviewed (EF 55-60%, no significant abnormalities. ) - Telemetry EKG Rhythm: Atrial Fibrillation
[2020-10-31] MEDS: cefTRIAXone/NS 2 GM/100 ML 2 GM/100 ML BAG IV SCH (13:17)
[2020-10-31] MEDS: AMIODARONE 200 MG TAB PO SCH ×2 (13:19→21:38)
[2020-10-31] MEDS: ALBUMIN HUMAN 25% (12.5 GM/50 ML) INJ IV SCH ×2 (14:26→21:38)
--- NOTE | 2020-10-31 14:50 | Progress Note ---
Assessment and Plan Assessment and plan: -Infectious disease, surgery, CCM, WOCN, cardiology consulted, appreciate recommendations -Antibiotic therapy -WC per nursing -Albumin -HIT pending, heparin discontinued d/t plt drop -Trend CBC, BMP -Proteus bacteremia, MRSA pneumonia -VAP bundle, wean as tolerated -Amiodarone for rate control GI/DVT prophylaxis: No chemical anticoagulation r/t thrombocytopenia, SCDs to bilateral legs while in bed, PPI Dispo: ICU The high probability of a clinically significant, sudden or life threatening deterioration of the [multi] system(s) required my full and direct attention, intervention and personal management. The aggregate critical care time was [35] minutes. This time is in addition to time spent performing reported procedures but includes the following: [x] Data Review and interpretation [x] Patient assessment and monitoring of vital signs [x] Documentation [x] Medication orders and management History Interval history: This is a 75-year-old male who is a long term resident with seizure disorder, hypertension, depression, hyperlipidemia, hypoglycemia, dysphagia, and encephalopathy who presents to the emergency department on 10/26 via EMS for tachypnea, dry mucous membranes and hypoxia. Patient was hypotensive, febrile to 103 degrees and hypoxic in the emergency department therefore he was intubated and central IV access was obtained. Patient received 3.5 L of IV fluid in the emergency department. Patient was admitted to the hospital service with consults to CCM, surgery, WOCN and ID for Sepsis, acute kidney injury, urinary tract infection, acute respiratory failure, electrolyte imbalances and bilateral pneumonia. Sepsis Acute respiratory failure Infected sacral wound s/p debridement with surgery Anemia s/p 2 units prbc Proteus bacteremia MRSA pneumonia Urine tract infection Acute kidney injury Leukocytosis Respiratory alkalosis Hypocalcemia Hypomagnesemia Lactic acidosis 10/27: Patient received additional 4 L LR for fluid resuscitation and CV monitoring was initiated. Patient is on Levophed. ID added Flagyl to vanc omycin and cefepime. His trach aspirate grew staph coccus aureus. At the time my examination patient the fentanyl drip was held by RN and he was on 14 MCG of Levophed. This morning he was on assist control 450/20/6/.100. We will give additional bolus of fluids with goal CVP 10-12 and repeat labs in AM. Surgery was consulted to possible debridement. 10/28: Overnight it was noted that patient went into SVT and he was given adenosine 6 mg/12 mg / 12 mg once and was started on a Cardizem drip after no response to amnio bolus and cardiology was consulted. Currently patient remains on Levophed drip and is hypotensive and received additional 2 L of bolus for goal CVP of 10-12. Infectious disease changed cefepime/Flagyl to meropenem for GNR in his blood cultures 09/04 and will continue vancomycin. Patient currently was not well controlled on max Cardizem and cardiology initiated amiodarone. Patient still is very tachycardic. Patient is hypomagnesemic and we will replete his Mg and recheck level. We will give the patient additional to complete resolve LR this afternoon. Patient has a standing order per [facility] [place] to bol[place] the patient with LR for CVP goal of 10-12. This morning he is hyperch lormeic, metabolic acidotic (bicarb drip initiated) and his BUN/creatinine slightly elevated. Patient still remains lactic acidotic. 10/29: Patient's blood culture speciated to Proteus and his tracheal aspirate is MRSA. He is currently on ceftriaxone, Flagyl and vancomycin. Patient heart rate consistently is 110-150s and cardiology has given him an amiodarone bolus today and he remains on amiodarone drip. He looks much started on IV digoxin. This morning 4 L LR bolus was ordered and we will bolus an additional 4 L of LR this afternoon. Patient still has lactic acidosis, metabolic acidosis, leukocytosis and hyperchloremia. On examination this morning patient is more edematous and he remains on Levophed and amnio drip. 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 Remains on amio, levo and sedated with fentanyl. He is hypokalemic today which was repleted, h/h 02/18 and he is being type and crossed today with 2 units PRBC ordered to be transfused. Plt drop noted, heparin discontinued and HIT ordered. Bicarb gtt discontinued. No acute events overnight. 10/31: Patient hypomagnesemia today which was repleted and cardiology has changed his IV amiodarone to p.o. Patient will get albumin per CCM. At the time my examination patient is on assist control 450/20/6/0.40. Hospitalist Physical - Constitutional Vitals: Temp Pulse Resp BP Pulse Ox 99 F 88 20 103/58 96 10/31/20 12:00 10/31/20 14:15 10/31/20 14:15 10/31/20 14:15 10/31/20 14:15 General appearance: Present: no acute distress, other (intubated, sedated) - EENT Eyes: Present: PERRL ENT: poor dentition - Neck Neck: Present: supple - Respiratory Respiratory effort: normal Respiratory: bilateral: diminished - Cardiovascular Rhythm: regular Heart Sounds: Present: S1 & S2. Absent: systolic murmur, diastolic murmur - Extremities Extremities: no ischemia, pulses intact, pulses symmetrical, normal temperature, normal color Extremity abnormal: edema Peripheral Pulses: within normal limits - Abdominal General gastrointestinal: soft, non-tender, non-distended, normal bowel sounds - Integumentary Integumentary: Present: dry - Psychiatric Psychiatric: other (sedated) - Neurologic Neurologic: other (sedated) HEART Score - HEART Score EKG: Non-specific Age: > 65 Risk factors: > 3 risk factors or hx of atherosclerotic disease Troponin: Troponin T 0.062 ng/mL (0.00-0.029) H 10/26/20 17:25 Troponin: < normal limit - Critical Actions Critical Actions: 4-6 pts:12-16.6% risk of adverse cardiac event. Should be admitted Results - Labs CBC & Chem 7: 10/31/20 04:37 10/31/20 04:37 Labs: Laboratory Last Values WBC 21.7 K/mm3 (4.5-11.0) H 10/31/20 04:37 RBC 3.96 M/mm3 (3.65-5.03) 10/31/20 04:37 Hgb 12.2 gm/dl (11.8-15.2) D 10/31/20 04:37 Hct 37.0 % (35.5-45.6) D 10/31/20 04:37 MCV 94 fl (84-94) 10/31/20 04:37 MCH 31 pg (28-32) 10/31/20 04:37 MCHC 33 % (32-34) 10/31/20 04:37 RDW 16.1 % (13.2-15.2) H 10/31/20 04:37 Plt Count 39 K/mm3 (140-440) L 10/31/20 04:37 Add Manual Diff Complete 10/27/20 03:30 Total Counted 100 10/27/20 03:30 Seg Neuts % (Manual) 57.0 % (40.0-70.0) 10/27/20 03:30 Band Neutrophils % 17.0 % 10/27/20 03:30 Lymphocytes % (Manual) 18.0 % (13.4-35.0) 10/27/20 03:30 Monocytes % (Manual) 2.0 % (0.0-7.3) 10/27/20 03:30 Eosinophils % (Manual) 2.0 % (0.0-4.3) 10/27/20 03:30 Metamyelocytes % 4.0 % 10/27/20 03:30 Nucleated RBC % Not Reportable 10/27/20 03:30 Seg Neutrophils # Man 11.6 K/mm3 (1.8-7.7) H 10/27/20 03:30 Band Neutrophils # 3.5 K/mm3 10/27/20 03:30 Lymphocytes # (Manual) 3.7 K/mm3 (1.2-5.4) 10/27/20 03:30 Abs React Lymphs (Man) 0.0 K/mm3 10/27/20 03:30 Monocytes # (Manual) 0.4 K/mm3 (0.0-0.8) 10/27/20 03:30 Eosinophils # (Manual) 0.4 K/mm3 (0.0-0.4) 10/27/20 03:30 Basophils # (Manual) 0.0 K/mm3 (0.0-0.1) 10/27/20 03:30 Metamyelocytes # 0.8 K/mm3 10/27/20 03:30 Myelocytes # 0.0 K/mm3 10/27/20 03:30 Promyelocytes # 0.0 K/mm3 10/27/20 03:30 Blast Cells # 0.0 K/mm3 10/27/20 03:30 WBC Morphology Not Reportable 10/27/20 03:30 Hypersegmented Neuts Not Reportable 10/27/20 03:30 Hyposegmented Neuts Not Reportable 10/27/20 03:30 Hypogranular Neuts Not Reportable 10/27/20 03:30 Smudge Cells Not Reportable 10/27/20 03:30 Toxic Granulation Not Reportable 10/27/20 03:30 Toxic Vacuolation Not Reportable 10/27/20 03:30 Dohle Bodies Not Reportable 10/27/20 03:30 Pelger-Huet Anomaly Not Reportable 10/27/20 03:30 Kassi Rods Not Reportable 10/27/20 03:30 Platelet Estimate Consistent w auto 10/27/20 03:30 Clumped Platelets Not Reportable 10/27/20 03:30 Plt Clumps, EDTA Not Reportable 10/27/20 03:30 Large Platelets Not Reportable 10/27/20 03:30 Giant Platelets Not Reportable 10/27/20 03:30 Platelet Satelliting Not Reportable 10/27/20 03:30 Plt Morphology Comment Not Reportable 10/27/20 03:30 RBC Morphology Not Reportable 10/27/20 03:30 Dimorphic RBCs Not Reportable 10/27/20 03:30 Polychromasia Not Reportable 10/27/20 03:30 Hypochromasia Few 10/27/20 03:30 Poikilocytosis Not Reportable 10/27/20 03:30 Anisocytosis Few 10/27/20 03:30 Microcytosis Not Reportable 10/27/20 03:30 Macrocytosis Not Reportable 10/27/20 03:30 Spherocytes Not Reportable 10/27/20 03:30 Pappenheimer Bodies Not Reportable 10/27/20 03:30 Sickle Cells Not Reportable 10/27/20 03:30 Target Cells Not Reportable 10/27/20 03:30 Tear Drop Cells Not Reportable 10/27/20 03:30 Ovalocytes Not Reportable 10/27/20 03:30 Helmet Cells Not Reportable 10/27/20 03:30 [place] Bodies Not Reportable 10/27/20 03:30 [place] Rings Not Reportable 10/27/20 03:30 Rhea Cells Not Reportable 10/27/20 03:30 Bite Cells Not Reportable 10/27/20 03:30 Crenated Cell Not Reportable 10/27/20 03:30 Elliptocytes Not Reportable 10/27/20 03:30 Acanthocytes (Spur) Not Reportable 10/27/20 03:30 Rouleaux Not Reportable 10/27/20 03:30 Hemoglobin C Crystals Not Reportable 10/27/20 03:30 Schistocytes Not Reportable 10/27/20 03:30 Malaria parasites Not Reportable 10/27/20 03:30 Richard Bodies Not Reportable 10/27/20 03:30 Hem Pathologist Commnt No 10/27/20 03:30 APTT 27.9 Sec. (24.2-36.6) 10/26/20 17:25 ABG pH 7.517 (7.320-7.450) H 10/31/20 03:42 POC ABG pCO2 25.7 mmHg (32.0-48.0) L 10/31/20 03:42 ABG pCO2 39.5 mm Hg 10/26/20 17:30 POC ABG pO2 52.3 mmHg (83-108) L 10/31/20 03:42 ABG pO2 312.4 mm Hg (80.0-90.0) H 10/26/20 17:30 POC ABG HCO3 20.4 10/31/20 03:42 ABG HCO3 16.4 mmol/L (20.0-26.0) L 10/26/20 17:30 ABG O2 Saturation 91.5 (0-100) 10/31/20 03:42 ABG O2 Content 15.9 (0.0-44) 10/26/20 17:30 POC ABG Base Excess -1.1 10/31/20 03:42 ABG Base Excess -10.4 mmol/L (-2.0-3.0) L 10/26/20 17:30 ABG Hemoglobin 12.9 (12.0-17.5) 10/31/20 03:42 ABG Oxyhemoglobin 90.8 (94-98) L 10/31/20 03:42 ABG Carboxyhemoglobin 1.1 % (0.0-5.0) 10/26/20 17:30 ABG Methemoglobin 0 (0.0-1.5) 10/31/20 03:42 ABG Sodium 137.2 mmol/L (136.0-145.0) 10/31/20 03:42 ABG Potassium 3.4 mmol/L (3.40-4.50) 10/31/20 03:42 ABG Chloride 109.0 mmol/L (98-107) H 10/31/20 03:42 ABG Glucose 147 mg/dL (65-95) H 10/31/20 03:42 Oxyhemoglobin 97.7 % (95.0-99.0) 10/26/20 17:30 Carboxyhemoglobin 0.8 (0.5-1.5) 10/31/20 03:42 FiO2 100 % 10/26/20 17:30 FiO2 % 30 10/31/20 03:42 Sodium 141 mmol/L (137-145) 10/31/20 04:37 Potassium 3.6 mmol/L (3.6-5.0) 10/31/20 04:37 Chloride 108.4 mmol/L (98-107) H 10/31/20 04:37 Carbon Dioxide 23 mmol/L (22-30) 10/31/20 04:37 Anion Gap 13 mmol/L 10/31/20 04:37 BUN 25 mg/dL (9-20) H 10/31/20 04:37 Creatinine 0.5 mg/dL (0.8-1.3) L 10/31/20 04:37 Estimated GFR > 60 ml/min 10/31/20 04:37 BUN/Creatinine Ratio 50 % 10/31/20 04:37 Glucose 140 mg/dL (75-100) H 10/31/20 04:37 POC Glucose 125 mg/dL (70-105) H 10/31/20 11:12 Hemoglobin A1c 5.5 % (4-6) 10/27/20 04:42 Lactic Acid 4.30 mmol/L (0.7-2.0) H* 10/31/20 Unknown Calcium 6.1 mg/dL (8.4-10.2) L 10/31/20 04:37 Phosphorus 2.80 mg/dL (2.5-4.5) 10/28/20 00:40 Magnesium 1.50 mg/dL (1.7-2.3) L 10/31/20 04:37 Total Bilirubin 0.20 mg/dL (0.1-1.2) 10/29/20 05:15 AST 14 units/L (5-40) 10/29/20 05:15 ALT 12 units/L (7-56) 10/29/20 05:15 Alkaline Phosphatase 98 units/L (35-129) 10/29/20 05:15 Total Creatine Kinase 31 units/L (55-170) L 10/26/20 17:28 Troponin T 0.062 ng/mL (0.00-0.029) H 10/26/20 17:25 Total Protein 6.0 g/dL (6.3-8.2) L 10/29/20 05:15 Albumin 1.0 g/dL (3.9-5) L 10/29/20 05:15 Albumin/Globulin Ratio 0.2 % 10/29/20 05:15 Triglycerides 190 mg/dL (2-149) H 10/26/20 17:25 Cholesterol 92 mg/dL (50-199) 10/26/20 17:25 LDL Cholesterol Direct 33 mg/dL (50-130) L 10/26/20 17:25 HDL Cholesterol 18 mg/dL (40-59) L 10/26/20 17:25 Cholesterol/HDL Ratio 5.11 % 10/26/20 17:25 TSH 1.490 mlU/mL (0.270-4.200) 10/26/20 17:28 Arterial Blood Glucose 147 mg/dL (65-95) H 10/31/20 03:42 Arterial Blood Ionized Calcium 4.0 mg/dL (4.6-5.3) L 10/31/20 03:42 Urine Color Yellow (Yellow) 10/27/20 Unknown Urine Turbidity Turbid (Clear) 10/27/20 Unknown Urine pH 8.0 (5.0-7.0) H 10/27/20 Unknown Ur Specific [place] 1.020 (1.003-1.030) 10/27/20 Unknown Urine Protein >500 mg/dL (Negative) 10/27/20 Unknown Urine Glucose (UA) Neg mg/dL (Negative) 10/27/20 Unknown Urine Ketones Neg mg/dL (Negative) 10/27/20 Unknown Urine Blood Sm (Negative) 10/27/20 Unknown Urine Nitrite Neg (Negative) 10/27/20 Unknown Urine Bilirubin Neg (Negative) 10/27/20 Unknown Urine Urobilinogen < 2.0 mg/dL (<2.0) 10/27/20 Unknown Ur Leukocyte Esterase Mod (Negative) 10/27/20 Unknown Urine WBC (Auto) > 182.0 /HPF (0.0-6.0) H 10/27/20 Unknown Urine RBC (Auto) 35.0 /HPF (0.0-6.0) 10/27/20 Unknown Urine WBC Clumps 3+ /HPF 10/27/20 Unknown Urine Mucus 3+ /HPF 10/27/20 Unknown Urine Yeast (Budding) 3+ /HPF 10/27/20 Unknown Vancomycin Trough 22.0 ug/mL (5.0-20.0) H 10/30/20 Unknown Salicylates < 0.3 mg/dL (2.8-20.0) L 10/26/20 17:28 Acetaminophen 5.0 ug/mL (10.0-30.0) L 10/26/20 17:28 Coronavirus (PCR) Negative (Negative) 10/27/20 Unknown Blood Type O POSITIVE 10/30/20 09:30 Antibody Screen Negative 10/30/20 09:30 Crossmatch See Detail 10/30/20 09:30 Microbiology: Microbiology 10/27/20 06:05 Urine,Catheterized - Straight Catheter Urine Culture - Final 10/26/20 Unknown Peripheral/Venous Blood Culture - Final Proteus Mirabilis 10/26/20 Unknown Peripheral/Venous Blood Culture - Final Proteus Mirabilis Rivas/IV: Voiding Method Indwelling Catheter Active Medications - Current Medications Current Medications: Generic Name Dose Route Start Last Admin Trade Name Freq PRN Reason Stop Dose Admin Acetaminophen 650 mg 10/26/20 22:22 10/29/20 08:05 Acetaminophen 325 Mg Tab PO 650 mg Q4H PRN Administration Pain MILD(1-3)/Fever >100.5/TIERNEY Albumin Human 12.5 gm 10/31/20 14:00 10/31/20 14:26 Albumin Human 25% (12.5 Gm/50 Ml) Inj IV 11/02/20 06:01 12.5 gm Q8HR MARSHALL Administration Amiodarone HCl 200 mg 10/31/20 12:00 10/31/20 13:19 Amiodarone 200 Mg Tab PO 200 mg BID MARSHALL Administration Lipase/Protease/Amylase 1 each 10/28/20 13:18 Lipase 10,500/Protease 25,000/Amylase 43,750 (Units) Dr Cap FEEDTUBE PRN PRN For Clogged Feeding Tube Famotidine 20 mg 10/28/20 10:00 10/31/20 09:56 Famotidine 20 Mg/2 Ml Inj IV 20 mg BID MARSHALL Administration Fentanyl 50 mcg 10/26/20 17:25 Fentanyl 100 Mcg/2 Ml Inj IV Q10MIN PRN ANALGESIA Fentanyl 50 mcg 10/27/20 10:39 10/29/20 16:05 Fentanyl 100 Mcg/2 Ml Inj IV 50 mcg Q2H PRN Administration Pain , Severe (7-10) Hydrophilic Ointment 1 applic 10/26/20 17:25 Lip Therapy Vaseline TP Q2HR PRN Dry Lips Fentanyl Citrate 2,000 mcg in 100 mls @ 4.165 mls/hr 10/26/20 18:00 10/31/20 08:30 Fentanyl Drip Premix IV 1 mcg/kg/hr TITR MARSHALL 4.165 mls/hr Administration Protocol 1 MCG/KG/HR Norepinephrine 4 mg in 250 mls @ 112.5 mls/hr 10/28/20 01:00 10/31/20 13:16 Levophed Drip 4 Mg/Ns 250 Ml IV 8 mcg/min TITR MARSHALL 30 mls/hr Administration Protocol 30 MCG/MIN Amiodarone HCl 900 mg/ 500 mls @ 33.333 mls/hr 10/28/20 01:00 10/31/20 04:27 Dextrose IV 11/01/20 01:00 0.5 mg/min DIRECT MARSHALL 16.66 mls/hr Administration Protocol 1 MG/MIN Vasopressin 20 unit/ Sodium 101 mls @ 9.09 mls/hr 10/28/20 16:00 Chloride IV TITR MARSHALL Protocol 0.03 UNITS/MIN Ceftriaxone Sodium 2 gm in 100 mls @ 200 mls/hr 10/29/20 13:00 10/31/20 13:17 Rocephin/Ns 2 Gm/100 Ml IV 11/12/20 13:29 200 mls/hr Q24H MARSHALL Administration Protocol Metronidazole 500 mg in 100 mls @ 100 mls/hr 10/29/20 14:00 10/31/20 14:26 Flagyl 500 Mg/100 Ml IV 11/12/20 14:59 100 mls/hr Q8H MARSHALL Administration Protocol Vancomycin HCl 1 gm in 250 mls @ 166.667 mls/hr 11/01/20 06:00 Vancomycin/Ns 1 Gm/250 Ml IV 11/01/20 12:00 Q24H MARSHALL Multi-Ingred Cream/Lotion/Oil/Oint 1 applic 10/26/20 17:25 Mineral Oil/Petrolatum, White Ophth Oint 3.5 Gm OU Q4HR PRN Dry Eye(s) Ondansetron HCl 4 mg 10/26/20 22:22 Ondansetron 4 Mg/2 Ml Inj IV Q8H PRN Nausea And Vomiting Simple Syrup 15 ml 10/28/20 13:18 Simple Syrup 15 Ml FEEDTUBE PRN PRN Hypoglycemia Simple Syrup 30 ml 10/28/20 13:18 Simple Syrup 15 Ml FEEDTUBE PRN PRN Hypoglycemia Sodium Bicarbonate 325 mg 10/28/20 13:18 Sodium Bicarbonate 325 Mg Tab FEEDTUBE PRN PRN For Clogged Feeding Tube Sodium Chloride 5 ml 10/26/20 17:25 Sodium Chloride 0.9% 500 Ml Ivpb IV DIRECT PRN ARTERIAL F[employer]GLASS [employer]PA[employer]ER Sodium Chloride 10 ml 10/27/20 10:00 10/31/20 09:57 Sodium Chloride 0.9% 10 Ml Flush Syringe IV 10 ml BID MARSHALL Administration Sodium Chloride 10 ml 10/26/20 22:22 Sodium Chloride 0.9% 10 Ml Flush Syringe IV PRN PRN LINE FLUSH Sodium Hypochlorite 1 applic 10/28/20 10:00 10/31/20 09:56 Sodium Hypochlorite, Dakin's 1/2 Strength (0.25%) 473 Ml Topical Soln TP 1 applicatio BID MARSHALL Administration Nutrition/Malnutrition Assess - Dietary Evaluation Nutrition/Malnutrition Findings: Nutrition Notes Start: 10/27/20 09:15 Freq: Status: Active Protocol: Document 10/31/20 10:52 CW (Rec: 10/31/20 11:04 CW [email or web address]) Nutrition Notes Initial or Follow up Reassessment Current Diagnosis Acute Kidney Injury,Decubitus( Pressure Ulcer),Sepsis, Hypertension,Respiratory Failure,Hyperlipidemia Other Pertinent Diagnosis AMS, MRSA, Encephalopathy, Metabiloc Acidosis, pneu ,FTT Labs/Tests BUN 25 Cr 0.5 BG 140 Pertinent Medications Levophed Height 6 ft 2 in Weight 107 kg [place] Body Weight (kg) 86.36 BMI 30.2 Weight change and time frame Weight stable Weight Status Obese Subjective/Other Information MD veral consult for TF change to prvode more protein d/t improved renal related labs and need for wound healing. Will change to Vital HP. Percent of energy/protein needs met: 22%/ 12% Burn Absent Trauma Absent Difficulty In Swallowing,Chewing Skin Integrity/Comment Multiple pressure ulcer,1 infected Current % PO Negligible Minimum of two criteria No Fluid Accumulation Mild (non-severe) #1 Nutrition Diagnosis Inadequate oral intake Is patient on ventilator? Yes Is Patient Ambulatory and/or Out of Bed No REE-([facility]-confined to bed) 2249.712 Kcal/Kg value to use for calculation 18 Approximate Energy Requirements Using 1926 kcal/Kg Calculation Used for Recommendations Kcal/kg Additional Notes protein needs: >163g (>2g/kgBW ) Fluid needs 1 ml/kcal Nutrition Intervention Change Diet Order: Change TF to Vital HP trickle feed at 10 ml/hr and advance towards goal rate when medically feasible Nutrition Support: Vital HP at 80 ml/hr with aa free water flush of 50 ml q4h Kcal 1,920 Protein (gm) 168 Fluid (mL) 1,605 Goal #1 TF at goal Goal #2 Meet EER as best as possible via TF Goal #3 wound healing Anticipated Discharge Needs: unable to determine at this time Follow-Up By: 11/03/20 Additional Comments F/U TF at goal, vent status
[2020-10-31 14:57] LABS: Hematocrit 34.1 % (35.5-45.6); Hemoglobin 11.4 gm/dl (11.8-15.2); Mean Corpuscular HGB Conc 34 % (32-34); Mean Corpuscular Volume 92 fl (84-94); Red Cell Distribution Width 16.2 % (13.2-15.2)
[2020-10-31 15:05] LABS: Platelet Count 33 K/mm3 (140-440)
[2020-11-01] MEDS: ACETAMINOPHEN 325 MG TAB PO PRN (02:21)
[2020-11-01] MEDS: fentaNYL DRIP Premix 2,000 MCG/100 ML BAG IV SCH ×2 (02:21→23:37)
[2020-11-01] MEDS: NORepinephrine/NS 4 MG-250 ML 4 MG/250 ML BAG IV SCH ×2 (04:03→14:40)
[2020-11-01 04:10] LABS: ABG HCO3 24.3 mmol/L (20.0-26.0); ABG Methemoglobin 0.7 % (0.0-1.5); ABG Oxygen Saturation 96.9 % (95.0-99.0); ABG PCO2 32.7 mm Hg; ABG PH 7.489 pH Units (7.350-7.450); ABG PO2 77.2 mm Hg (80.0-90.0)
[2020-11-01] MEDS: metroNIDAZOLE/NS 500 MG/100 ML 500 MG/100 ML BAG IV SCH ×3 (05:31→22:14)
[2020-11-01] MEDS: ALBUMIN HUMAN 25% (12.5 GM/50 ML) INJ IV SCH ×3 (05:31→22:17)
--- NOTE | 2020-11-01 05:31 | XRay Report ---
CHEST 1 VIEW 11/01/2020 4:21 AM INDICATION / CLINICAL INFORMATION: follow up respiratory failure. COMPARISON: 10/31/2020 FINDINGS: SUPPORT DEVICES: The tip of the endotracheal tube is positioned approximately 7 cm above the lina. Central venous line and nasogastric tube appear unchanged. HEART / MEDIASTINUM: Unchanged LUNGS / PLEURA: There are small bilateral pleural effusions. There is airspace opacity in the mid and lower lung zones this is mildly worsened.. No pneumothorax. ADDITIONAL FINDINGS: No significant additional findings. IMPRESSION: 1. Mild interval worsening. Signer Name: Bobby Saucedo MD Signed: 11/01/2020 5:27 AM Workstation Name: [id number]
[2020-11-01 05:43] LABS: Blood Urea Nitrogen 25 mg/dL (9-20); Hemolysis Index 31
[2020-11-01 05:55] LABS: BUN/Creatinine Ratio 50
[2020-11-01] MEDS ORDERED: VANCOMYCIN/NS 1 GM/250 ML 1 GM/250 ML BAG IV SCH (06:00)
[2020-11-01] MEDS: FAMOTIDINE 20 MG/2 ML INJ IV SCH ×2 (09:05→22:15)
[2020-11-01] MEDS: AMIODARONE 200 MG TAB PO SCH ×2 (09:05→22:17)
[2020-11-01] MEDS: SODIUM HYPOCHLORITE, DAKIN'S 1/2 STRENGTH (0.25%) 473 ML TOPICAL SOLN TP SCH ×2 (09:05→22:18)
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
[2020-11-01] MEDS: cefTRIAXone/NS 2 GM/100 ML 2 GM/100 ML BAG IV SCH (12:31)
[2020-11-01 14:14] LABS: Hematocrit 30.1 % (35.5-45.6); Hemoglobin 9.9 gm/dl (11.8-15.2); Mean Corpuscular HGB Conc 33 % (32-34); Mean Corpuscular Volume 92 fl (84-94); Red Blood Count 3.27 M/mm3 (3.65-5.03); Red Cell Distribution Width 15.7 % (13.2-15.2)
[2020-11-01 14:16] LABS: Platelet Count 34 K/mm3 (140-440)
--- NOTE | 2020-11-01 19:12 | Progress Note ---
Assessment and Plan CXR noted. Closely monitor volume status. Wean pressors as tolerated. Continue PO Amiodarone 200mg BID. Recommend PRN correction of electrolytes to avoid tachyarrhythmias. No systemic AC at this time in regards to AFib in the setting of anemia requiring pRBCs, thrombocytopenia (?HIT), and sacral ulcer. Prognosis remains guarded. Pt seen in conjunction with Dr. Iqbal, who agrees with the assessment and plan of care. - Patient Problems (1) Acute encephalopathy Current Visit: Yes Status: Acute (2) Acute respiratory failure Current Visit: Yes Status: Acute (3) Septic shock Current Visit: Yes Status: Acute (4) Sacral decubitus ulcer, stage IV Current Visit: Yes Status: Acute (5) UTI (urinary tract infection) Current Visit: Yes Status: Acute (6) Atrial fibrillation with RVR Current Visit: Yes Status: Acute (7) Hypokalemia Current Visit: Yes Status: Acute (8) Hypomagnesemia Current Visit: Yes Status: Acute (9) Anemia Current Visit: Yes Status: Acute (10) Thrombocytopenia Current Visit: Yes Status: Acute (11) Severe malnutrition Current Visit: Yes Status: Acute Subjective Date of service: 11/01/20 Principal diagnosis: Acute Resp Fail, Septic Shock, Sacral Ulcer, AF with RVR Interval history: Remains intubated/sedated. Still requiring vasopressor support. AF 70-80s, intermittently up to 110s. Objective Last Vital Signs Temp 98.0 F 11/01/20 20:00 Pulse 84 11/01/20 20:11 Resp 23 11/01/20 18:15 BP 107/53 11/01/20 20:11 Pulse Ox 95 11/01/20 20:11 - Physical Examination General: Other (intubated, sedated) HEENT: Positive: Normocephaly Neck: Positive: neck supple, trachea midline Cardiac: Positive: irregularly irregular, S1/S2 Lungs: Positive: Other (diminished bases) Neuro: Positive: Other (intubated, sedated) Abdomen: Positive: Soft Skin: Positive: Wound. Negative: Rash Extremities: Present: upper extr. pulses, lower extr. pulses, edema - Labs and Meds CBC 11/01/20 Range/Units Unknown WBC 18.2 H (4.5-11.0) K/mm3 RBC 3.27 L (3.65-5.03) M/mm3 Hgb 9.9 L (11.8-15.2) gm/dl Hct 30.1 L D (35.5-45.6) % Plt Count 34 L (140-440) K/mm3 Comprehensive Metabolic Panel 11/01/20 Range/Units 04:21 Sodium 139 (137-145) mmol/L Potassium 3.1 L (3.6-5.0) mmol/L Chloride 107.1 H (98-107) mmol/L Carbon Dioxide 24 (22-30) mmol/L BUN 25 H (9-20) mg/dL Creatinine 0.5 L (0.8-1.3) mg/dL Glucose 148 H (75-100) mg/dL Calcium 6.0 L (8.4-10.2) mg/dL - Imaging and Cardiology EKG: report reviewed, image reviewed Echo: report reviewed (10/28/2020- EF 55-60%, no significant valvular abnormalities) - Telemetry EKG Rhythm: Atrial Fibrillation - EKG Supraventricular dysrhythmia: atrial fibrillation
--- NOTE | 2020-11-01 23:13 | Progress Note ---
Assessment and Plan Critical care statement The high probability OF a clinically significant sudden or life-threatening deterioration of the cardiorespiratory system and endocrine system required my full and direct attention, intervention and postoperative management. The aggregate critical care time was 40 minutes. The time is in addition to time spent performing reported procedures but includes the followin: Data review and interpretation 2: Patient assessment and monitoring of vital signs 3: Documentation 4:: Medication orders and management - Patient Problems (1) Acute metabolic encephalopathy Current Visit: Yes Status: Acute Plan to address problem: Multifactorial Secondary to sepsis and hypoxia Broad-spectrum IV antibiotics Vent support (2) Acute respiratory failure with hypoxia Current Visit: Yes Status: Acute Plan to address problem: Patient intubated Vent management [employer]/pulmonary consult Broad-spectrum IV antibiotics cefepime and IV vancomycin (3) Sacral decubitus ulcer, stage IV Current Visit: Yes Status: Acute Plan to address problem: Surgery consult requested for possible debridement (4) Bilateral pneumonia Current Visit: Yes Status: Acute Plan to address problem: IV cefepime and vancomycin Coronavirus to be ruled out (5) Person under investigation for COVID-19 Current Visit: Yes Status: Acute Plan to address problem: Coronavirus PCR to be ruled out (6) Elevated lactic acid level Current Visit: Yes Status: Acute Plan to address problem: Secondary to sepsis (7) FAZAL (acute kidney injury) Current Visit: Yes Status: Acute Plan to address problem: IV fluids for now (8) Severe malnutrition Current Visit: Yes Status: Acute Plan to address problem: Dietitian consult for malnutrition and tube feedings (9) Urinary tract infection Current Visit: Yes Status: Acute Qualifiers: Urinary tract infection type: acute cystitis Plan to address problem: Patient on cefepime and vancomycin Blood cultures and urine cultures are pending (10) DVT prophylaxis Current Visit: Yes Status: Acute Plan to address problem: On heparin and GI prophylaxis Subjective Date of service: 11/01/20 Principal diagnosis: Acute Resp Fail, Septic Shock, Sacral Ulcer, AF with RVR Interval history: History Interval history: This is a 75-year-old male who is a jail resident with seizure disorder, hypertension, depression, hyperlipidemia, hypoglycemia, dysphagia, and encephalopathy who presents to the emergency department on 10/26 via EMS for tachypnea, dry mucous membranes and hypoxia. Patient was hypotensive, febrile to 103 degrees and hypoxic in the emergency department therefore he was intuba donna and central IV access was obtained. Patient received 3.5 L of IV fluid in the emergency department. Patient was admitted to the hospital service with consults to CCM, surgery, WOCN and ID for Sepsis, acute kidney injury, urinary tract infection, acute respiratory failure, electrolyte imbalances and bilateral pneumonia. 10/27: Patient received additional 4 L LR for fluid resuscitation and CV monitoring was initiated. Patient is on Levophed. ID added Flagyl to vancomycin and cefepime. His trach aspirate grew staph coccus aureus. At the time my examination patient the fentanyl drip was held by RN and he was on 14 MCG of Levophed. This morning he was on assist control 450/20/6/.100. We will give additional bolus of fluids with goal CVP 10-12 and repeat labs in AM. Surgery was consulted to possible debridement. 10/28: Overnight it was noted that patient went into SVT and he was given adenosine 6 mg/12 mg / 12 mg once and was started on a Cardizem drip after no response to amnio bolus and cardiology was consulted. Currently patient remains on Levophed drip and is hypotensive and received additional 2 L of bolus for goal CVP of 10-12. Infectious disease changed cefepime/Flagyl to meropenem for GNR in his blood cultures 09/04 and will continue vancomycin. Patient currently was not well controlled on max Cardizem and cardiology initiated amiodarone. Patient still is very tachycardic. Patient is hypomagnesemic and we will replete his Mg and recheck level. We will give the patient additional to complete resolve LR this afternoon. Patient has a standing order per [facility] to bolus the patient with LR for CVP goal of 10-12. This morning he is hyperchlormeic, metabolic acidotic (bicarb drip initiated) and his BUN/creatinine slightly elevated. Patient still remains lactic acidotic. 10/29: Patient's blood culture speciated to Proteus and his tracheal aspirate is MRSA. He is currently on ceftriaxone, Flagyl and vancomycin. Patient heart rate consistently is 110-150s and cardiology has given him an amiodarone bolus today and he remains on amiodarone drip. He looks much started on IV digoxin. This morning 4 L LR bolus was ordered and we will bolus an additional 4 L of LR this afternoon. Patient still has lactic acidosis, metabolic acidosis, leukocytosis and hyperchloremia. On examination this morning patient is more edematous and he remains on Levophed and amnio drip. 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 Remains on amio, levo and sedated with fentanyl. He is hypokalemic today which was repleted, h/h 02/18 and he is being t ype and crossed today with 2 units PRBC ordered to be transfused. Plt drop noted, heparin discontinued and HIT ordered. Bicarb gtt discontinued. No acute events overnight. 10/31: Patient hypomagnesemia today which was repleted and cardiology has changed his IV amiodarone to p.o. Patient will get albumin per [facility]. At the time my examination patient is on assist control 450/20/6/0.40. 11/02/20 Weaning in progress Objective - Exam Narrative Exam: Patient is intubated - Constitutional Vitals: Vital Signs - 12hr 11/01/20 11/01/20 11/01/20 11:15 11:30 11:45 Temperature Pulse Rate 103 H 104 H 113 H Pulse Rate [ From Monitor] Respiratory 11 L 10 L 12 Rate Blood Pressure 102/61 91/55 113/65 O2 Sat by Pulse 99 99 100 Oximetry 11/01/20 11/01/20 11/01/20 11:52 11:59 12:00 Temperature 98.4 F Pulse Rate 110 H 116 H Pulse Rate [ 73 From Monitor] Respiratory 12 11 L Rate Blood Pressure 113/65 108/63 O2 Sat by Pulse 99 99 Oximetry 11/01/20 11/01/20 11/01/20 12:15 12:30 12:45 Temperature Pulse Rate 74 73 81 Pulse Rate [ From Monitor] Respiratory 13 10 L 11 L Rate Blood Pressure 114/57 113/57 117/57 O2 Sat by Pulse 99 98 99 Oximetry 11/01/20 11/01/20 11/01/20 13:00 13:15 13:31 Temperature Pulse Rate 72 101 H 93 H Pulse Rate [ From Monitor] Respiratory 11 L 12 11 L Rate Blood Pressure 114/55 112/64 108/56 O2 Sat by Pulse 99 98 98 Oximetry 11/01/20 11/01/20 11/01/20 13:45 14:00 14:15 Temperature Pulse Rate 107 H 115 H 74 Pulse Rate [ From Monitor] Respiratory 15 12 12 Rate Blood Pressure 112/63 102/60 111/57 O2 Sat by Pulse 99 98 98 Oximetry 11/01/20 11/01/20 11/01/20 14:30 14:45 15:00 Temperature Pulse Rate 74 74 76 Pulse Rate [ From Monitor] Respiratory 12 11 L 11 L Rate Blood Pressure 110/54 114/59 115/58 O2 Sat by Pulse 98 99 99 Oximetry 11/01/20 11/01/20 11/01/20 15:15 15:30 15:45 Temperature Pulse Rate 77 73 75 Pulse Rate [ From Monitor] Respiratory 17 11 L 13 Rate Blood Pressure 120/62 118/60 124/58 O2 Sat by Pulse 99 99 99 Oximetry 11/01/20 11/01/20 11/01/20 15:51 16:00 16:15 Temperature 97.8 F Pulse Rate 76 76 105 H Pulse Rate [ 77 From Monitor] Respiratory 12 14 16 Rate Blood Pressure 118/60 109/57 121/64 O2 Sat by Pulse 99 99 99 Oximetry 11/01/20 11/01/20 11/01/20 16:30 16:45 17:00 Temperature Pulse Rate 111 H 101 H 101 H Pulse Rate [ From Monitor] Respiratory 12 13 13 Rate Blood Pressure 104/57 107/62 103/64 O2 Sat by Pulse 98 98 98 Oximetry 11/01/20 11/01/20 11/01/20 17:15 17:31 17:45 Temperature Pulse Rate 109 H 115 H 112 H Pulse Rate [ From Monitor] Respiratory 13 14 15 Rate Blood Pressure 85/61 92/54 90/57 O2 Sat by Pulse 98 97 98 Oximetry 11/01/20 11/01/20 11/01/20 18:00 18:15 18:30 Temperature Pulse Rate 105 H 123 H Pulse Rate [ From Monitor] Respiratory 16 23 Rate Blood Pressure 81/54 104/51 87/54 O2 Sat by Pulse 98 94 Oximetry 11/01/20 11/01/20 11/01/20 19:00 19:15 19:30 Temperature Pulse Rate 114 H 87 Pulse Rate [ From Monitor] Respiratory 20 21 Rate Blood Pressure 92/53 97/53 103/52 O2 Sat by Pulse 94 95 95 Oximetry 11/01/20 11/01/2011/01/21 19:45 20:00 20:11 Temperature 98.0 F Pulse Rate 88 88 84 Pulse Rate [ From Monitor] Respiratory 21 20 Rate Blood Pressure 98/55 107/53 107/53 O2 Sat by Pulse 95 96 95 Oximetry 11/01/20 11/01/20 11/01/20 20:15 20:30 20:45 Temperature Pulse Rate 88 82 82 Pulse Rate [ From Monitor] Respiratory 21 27 H 27 H Rate Blood Pressure O2 Sat by Pulse 95 96 97 Oximetry 11/01/20 11/01/20 11/01/20 21:00 21:15 21:30 Temperature Pulse Rate 81 65 85 Pulse Rate [ From Monitor] Respiratory 28 H 16 22 Rate Blood Pressure 77/41 117/60 O2 Sat by Pulse 96 99 92 Oximetry 11/01/20 11/01/20 11/01/20 21:45 22:00 22:15 Temperature Pulse Rate 86 86 85 Pulse Rate [ From Monitor] Respiratory 23 23 22 Rate Blood Pressure 123/58 114/56 119/57 O2 Sat by Pulse 93 95 95 Oximetry 11/01/20 11/01/20 11/01/20 22:30 22:45 23:00 Temperature Pulse Rate 91 H 88 88 Pulse Rate [ From Monitor] Respiratory 23 23 22 Rate Blood Pressure 113/54 115/56 115/55 O2 Sat by Pulse 96 96 96 Oximetry General appearance: Present: no acute distress, well-nourished - EENT Eyes: PERRL, EOM intact ENT: hearing intact, clear oral mucosa Ears: bilateral: normal - Neck Neck: supple, normal ROM - Respiratory Respiratory effort: normal Respiratory: bilateral: CTA - Breasts Breasts: normal - Cardiovascular Rhythm: regular Heart Sounds: Present: S1 & S2. Absent: gallop, rub Extremities: pulses intact, No edema, normal color, Full ROM - Gastrointestinal General gastrointestinal: Present: soft, non-tender, non-distended, normal bowel sounds - Genitourinary Male genitourinary: normal - Integumentary Integumentary: clear, warm, dry - Musculoskeletal Musculoskeletal: 1, strength equal bilaterally - Neurologic Neurologic: moves all extremities - Psychiatric Psychiatric: memory intact, appropriate mood/affect, intact judgment & insight - Labs CBC & Chem 7: 11/04/20 05:34 11/04/20 05:34 Labs: Abnormal lab results 10/31/20 11/01/20 11/01/20 Range/Units 23:21 03:40 04:21 WBC (4.5-11.0) K/mm3 RBC (3.65-5.03) M/mm3 Hgb (11.8-15.2) gm/dl Hct (35.5-45.6) % RDW (13.2-15.2) % Plt Count (140-440) K/mm3 ABG pH 7.489 H (7.350-7.450) pH Units ABG pO2 77.2 L (80.0-90.0) mm Hg ABG Hemoglobin 7.1 L (14.0-18.0) gm/dl Potassium 3.1 L (3.6-5.0) mmol/L Chloride 107.1 H (98-107) mmol/L BUN 25 H (9-20) mg/dL Creatinine 0.5 L (0.8-1.3) mg/dL Glucose 148 H (75-100) mg/dL POC Glucose 127 H (70-105) mg/dL Calcium 6.0 L (8.4-10.2) mg/dL 11/01/20 11/01/20 11/01/20 Range/Units 05:13 11:42 17:38 WBC (4.5-11.0) K/mm3 RBC (3.65-5.03) M/mm3 Hgb (11.8-15.2) gm/dl Hct (35.5-45.6) % RDW (13.2-15.2) % Plt Count (140-440) K/mm3 ABG pH (7.350-7.450) pH Units ABG pO2 (80.0-90.0) mm Hg ABG Hemoglobin (14.0-18.0) gm/dl Potassium (3.6-5.0) mmol/L Chloride (98-107) mmol/L BUN (9-20) mg/dL Creatinine (0.8-1.3) mg/dL Glucose (75-100) mg/dL POC Glucose 139 H 139 H 161 H (70-105) mg/dL Calcium (8.4-10.2) mg/dL 11/01/20 Range/Units Unknown WBC 18.2 H (4.5-11.0) K/mm3 RBC 3.27 L (3.65-5.03) M/mm3 Hgb 9.9 L (11.8-15.2) gm/dl Hct 30.1 L D (35.5-45.6) % RDW 15.7 H (13.2-15.2) % Plt Count 34 L (140-440) K/mm3 ABG pH (7.350-7.450) pH Units ABG pO2 (80.0-90.0) mm Hg ABG Hemoglobin (14.0-18.0) gm/dl Potassium (3.6-5.0) mmol/L Chloride (98-107) mmol/L BUN (9-20) mg/dL Creatinine (0.8-1.3) mg/dL Glucose (75-100) mg/dL POC Glucose (70-105) mg/dL Calcium (8.4-10.2) mg/dL HEART Score - HEART Score EKG: Non-specific Age: > 65 Risk factors: > 3 risk factors or hx of atherosclerotic disease Troponin: Troponin T 0.062 ng/mL (0.00-0.029) H 10/26/20 17:25 Troponin: < normal limit - Critical Actions Critical Actions: 4-6 pts:12-16.6% risk of adverse cardiac event. Should be admitted
[2020-11-02 05:34] LABS: ABG Base Excess 0.8 mmol/L (-2.0-3.0); ABG HCO3 24.6 mmol/L (20.0-26.0); ABG Methemoglobin 0.6 % (0.0-1.5); ABG Oxygen Saturation 97.2 % (95.0-99.0); ABG PCO2 35.7 mm Hg; ABG PH 7.456 pH Units (7.350-7.450); ABG PO2 88.3 mm Hg (80.0-90.0)
[2020-11-02] MEDS: metroNIDAZOLE/NS 500 MG/100 ML 500 MG/100 ML BAG IV SCH ×3 (06:15→21:36)
[2020-11-02] MEDS: ALBUMIN HUMAN 25% (12.5 GM/50 ML) INJ IV SCH (06:40)
--- NOTE | 2020-11-02 08:58 | XRay Report ---
CHEST 1 VIEW, 11/02/2020 8:29 AM CLINICAL INFORMATION/INDICATION: Respiratory failure COMPARISON: Chest radiograph, 11/01/2020 at 5:10 AM FINDINGS: SUPPORT DEVICES: Endotracheal tube has been removed. Additional support tubes and lines project in si milar position. HEART: There is stable mild enlargement of the cardiac silhouette. LUNGS/PLEURA: Diffuse bilateral pulmonary opacities have not significantly changed. Bibasilar pleurop arenchymal opacities also appear stable. No pneumothorax is identified. ADDITIONAL FINDINGS: No additional acute findings. IMPRESSION: 1. Stable bilateral pulmonary opacities. Bibasilar pleuroparenchymal opacities are suggestive of smal l bilateral pleural effusions. Signer Name: Radha Damon MD Signed: 11/02/2020 8:53 AM Workstation Name: [id number]
[2020-11-02] MEDS: AMIODARONE 200 MG TAB PO SCH ×2 (09:26→21:37)
[2020-11-02] MEDS: FAMOTIDINE 20 MG/2 ML INJ IV SCH ×2 (09:26→21:37)
[2020-11-02] MEDS: SODIUM HYPOCHLORITE, DAKIN'S 1/2 STRENGTH (0.25%) 473 ML TOPICAL SOLN TP SCH ×2 (09:26→21:37)
[2020-11-02 09:49] LABS: Blood Urea Nitrogen 23 mg/dL (9-20); Calcium 6.1 mg/dL (8.4-10.2); Hemolysis Index 12
[2020-11-02 09:52] LABS: BUN/Creatinine Ratio 58
[2020-11-02 10:24] LABS: Hematocrit 26.6 % (35.5-45.6); Hemoglobin 8.8 gm/dl (11.8-15.2); Mean Corpuscular HGB Conc 33 % (32-34); Mean Corpuscular Volume 93 fl (84-94); Red Blood Count 2.87 M/mm3 (3.65-5.03); Red Cell Distribution Width 15.8 % (13.2-15.2)
[2020-11-02 10:27] LABS: Platelet Count 30 K/mm3 (140-440)
--- NOTE | 2020-11-02 11:59 | Progress Note ---
Assessment and Plan Repeat CXR noted. Continue to closely monitor volume status. Wean pressors as tolerated. Continue PO Amiodarone 200mg BID. Recommend PRN correction of electrolytes to avoid tachyarrhythmias. K repletion underway per Primary. Will also give 2g IV mag sulfate. F/u BMP & Mg in AM. No systemic AC at this time in regards to AFib in the setting of anemia requiring pRBCs, thrombocytopenia (?HIT), and sacral ulcer. Prognosis remains guarded. Pt seen in conjunction with Dr. Iqbal, who agrees with the assessment and plan of care. - Patient Problems (1) Acute encephalopathy Current Visit: Yes Status: Acute (2) Acute respiratory failure Current Visit: Yes Status: Acute (3) Septic shock Current Visit: Yes Status: Acute (4) Sacral decubitus ulcer, stage IV Current Visit: Yes Status: Acute (5) UTI (urinary tract infection) Current Visit: Yes Status: Acute (6) Atrial fibrillation with RVR Current Visit: Yes Status: Acute (7) Hypokalemia Current Visit: Yes Status: Acute (8) Hypomagnesemia Current Visit: Yes Status: Acute (9) Anemia Current Visit: Yes Status: Acute (10) Thrombocytopenia Current Visit: Yes Status: Acute (11) Severe malnutrition Current Visit: Yes Status: Acute Subjective Date of service: 11/02/20 Principal diagnosis: Acute Resp Fail, Septic Shock, Sacral Ulcer, AF with RVR Interval history: Remains intubated/sedated. Still requiring vasopressor support. Tele reviewed - AF 70-80s, intermittently up to 110s. Objective Last Vital Signs Temp 97.9 F 11/02/20 08:00 Pulse 76 11/02/20 10:30 Resp 15 11/02/20 10:30 BP 97/44 11/02/20 10:30 Pulse Ox 99 11/02/20 10:30 - Physical Examination General: Other (intubated, sedated) HEENT: Positive: Normocephaly Neck: Positive: neck supple, trachea midline Cardiac: Positive: irregularly irregular, S1/S2 Lungs: Positive: Other (diminished bases) Neuro: Positive: Other (intubated, sedated) Abdomen: Positive: Soft Skin: Positive: Wound. Negative: Rash Extremities: Present: upper extr. pulses, lower extr. pulses, edema, Other (chronic skin changes noted) - Labs and Meds CBC 11/01/20 11/02/20 Range/Units Unknown 08:40 WBC 18.2 H 16.6 H (4.5-11.0) K/mm3 RBC 3.27 L 2.87 L (3.65-5.03) M/mm3 Hgb 9.9 L 8.8 L (11.8-15.2) gm/dl Hct 30.1 L D 26.6 L (35.5-45.6) % Plt Count 34 L 30 L (140-440) K/mm3 Comprehensive Metabolic Panel 11/02/20 Range/Units 08:40 Sodium 142 (137-145) mmol/L Potassium 2.4 L* D (3.6-5.0) mmol/L Chloride 110.2 H (98-107) mmol/L Carbon Dioxide 25 (22-30) mmol/L BUN 23 H (9-20) mg/dL Creatinine 0.4 L (0.8-1.3) mg/dL Glucose 154 H (75-100) mg/dL Calcium 6.1 L (8.4-10.2) mg/dL - Imaging and Cardiology EKG: report reviewed, image reviewed Echo: report reviewed (10/28/2020- EF 55-60%, no significant valvular abnormalities) - Telemetry EKG Rhythm: Atrial Fibrillation - EKG Supraventricular dysrhythmia: atrial fibrillation - Allied health notes Allied health notes reviewed: nursing
[2020-11-02] MEDS ORDERED: POTASSIUM CHLORIDE 20 MEQ PACKET FEEDTUBE ONE (12:00)
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
[2020-11-02] MEDS ORDERED: MAGNESIUM SULFATE 2 GM/50 ML BAG IV ONE (12:54)
[2020-11-02] MEDS: cefTRIAXone/NS 2 GM/100 ML 2 GM/100 ML BAG IV SCH (13:31)
[2020-11-02] MEDS: POTASSIUM CHLORIDE 20 MEQ 20 MEQ/100 ML BAG IV SCH ×2 (13:41→15:30)
[2020-11-02 13:58] LABS: Total Cells Counted 100
[2020-11-02 14:00] LABS: Platelet Estimate Consistent w Auto; RBC Morphology Normal
[2020-11-02] MEDS: fentaNYL DRIP Premix 2,000 MCG/100 ML BAG IV SCH (17:52)
[2020-11-02] MEDS: NORepinephrine/NS 4 MG-250 ML 4 MG/250 ML BAG IV SCH (17:53)
[2020-11-02] MEDS: POTASSIUM CHLORIDE ER 20 MEQ TAB PO SCH (20:13)
[2020-11-03] MEDS: POTASSIUM CHLORIDE ER 20 MEQ TAB PO SCH (01:01)
[2020-11-03] MEDS: fentaNYL DRIP Premix 2,000 MCG/100 ML BAG IV SCH (01:08)
[2020-11-03] MEDS: metroNIDAZOLE/NS 500 MG/100 ML 500 MG/100 ML BAG IV SCH ×3 (05:21→21:30)
[2020-11-03 06:12] LABS: BUN/Creatinine Ratio 80; Blood Urea Nitrogen 24 mg/dL (9-20)
[2020-11-03 06:13] LABS: Calcium 5.8 mg/dL (8.4-10.2)
--- NOTE | 2020-11-03 07:12 | Progress Note ---
Assessment and Plan Critical care statement The high probability OF a clinically significant sudden or life-threatening deterioration of the cardiorespiratory system and endocrine system required my full and direct attention, intervention and postoperative management. The aggregate critical care time was 40 minutes. 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 Broad-spectrum IV antibiotics cefepime and IV vancomycin (3) Sacral decubitus ulcer, stage IV Current Visit: Yes Status: Acute Plan to address problem: Surgery consult requested for possible debridement (4) Bilateral pneumonia Current Visit: Yes Status: Acute Plan to address problem: IV cefepime and vancomycin Coronavirus to be ruled out (5) Person under investigation for COVID-19 Current Visit: Yes Status: Acute Plan to address problem: Coronavirus PCR to be ruled out (6) Elevated lactic acid level Current Visit: Yes Status: Acute Plan to address problem: Secondary to sepsis (7) FAZAL (acute kidney injury) Current Visit: Yes Status: Acute Plan to address problem: IV fluids for now (8) Severe malnutrition Current Visit: Yes Status: Acute Plan to address problem: Dietitian consult for malnutrition and tube feedings (9) Urinary tract infection Current Visit: Yes Status: Acute Qualifiers: Urinary tract infection type: acute cystitis Plan to address problem: Patient on cefepime and vancomycin Blood cultures and urine cultures are pending (10) DVT prophylaxis Current Visit: Yes Status: Acute Plan to address problem: On heparin and GI prophylaxis Subjective Date of service: 11/02/20 Principal diagnosis: Acute Resp Fail, Septic Shock, Sacral Ulcer, AF with RVR Interval history: History Interval history: This is a 75-year-old male who is a [facility] resident with seizure disorder, hypertension, depression, hyperlipidemia, hypoglycemia, dysphagia, and encephalopathy who presents to the emergency department on 10/26 via EMS for tachypnea, dry mucous membranes and hypoxia. Patient was hypotensive, febrile to 103 degrees and hypoxic in the emergency department therefore he was intuba donna and central IV access was obtained. Patient received 3.5 L of IV fluid in the emergency department. Patient was admitted to the hospital service with consults to CCM, surgery, WOCN and ID for Sepsis, acute kidney injury, urinary tract infection, acute respiratory failure, electrolyte imbalances and bilateral pneumonia. 10/27: Patient received additional 4 L LR for fluid resuscitation and CV monitoring was initiated. Patient is on Levophed. ID added Flagyl to vancomycin and cefepime. His trach aspirate grew staph coccus aureus. At the time my examination patient the fentanyl drip was held by RN and he was on 14 MCG of Levophed. This morning he was on assist control 450/20/6/.100. We will give additional bolus of fluids with goal CVP 10-12 and repeat labs in AM. Surgery was consulted to possible debridement. 10/28: Overnight it was noted that patient went into SVT and he was given adenosine 6 mg/12 mg / 12 mg once and was started on a Cardizem drip after no response to amnio bolus and cardiology was consulted. Currently patient remains on Levophed drip and is hypotensive and received additional 2 L of bolus for goal CVP of 10-12. Infectious disease changed cefepime/Flagyl to meropenem for GNR in his blood cultures 09/04 and will continue vancomycin. Patient currently was not well controlled on max Cardizem and cardiology initiated amiodarone. Patient still is very tachycardic. Patient is hypomagnesemic and we will replete his Mg and recheck level. We will give the patient additional to complete resolve LR this afternoon. Patient has a standing order per [facility] to bolus the patient with LR for CVP goal of 10-12. This morning he is hyperchlormeic, metabolic acidotic (bicarb drip initiated) and his BUN/creatinine slightly elevated. Patient still remains lactic acidotic. 10/29: Patient's blood culture speciated to Proteus and his tracheal aspirate is MRSA. He is currently on ceftriaxone, Flagyl and vancomycin. Patient heart rate consistently is 110-150s and cardiology has given him an amiodarone bolus today and he remains on amiodarone drip. He looks much started on IV digoxin. This morning 4 L LR bolus was ordered and we will bolus an additional 4 L of LR this afternoon. Patient still has lactic acidosis, metabolic acidosis, leukocytosis and hyperchloremia. On examination this morning patient is more edematous and he remains on Levophed and amnio drip. 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 Remains on amio, levo and sedated with fentanyl. He is hypokalemic today which was repleted, h/h 02/18 and he is being t ype and crossed today with 2 units PRBC ordered to be transfused. Plt drop noted, heparin discontinued and HIT ordered. Bicarb gtt discontinued. No acute events overnight. 10/31: Patient hypomagnesemia today which was repleted and cardiology has changed his IV amiodarone to p.o. Patient will get albumin per [facility]. At the time my examination patient is on assist control 450/20/6/0.40. 11/01 Weaning in progress 11/02/20 Weaning in progress Objective - Exam Narrative Exam: Patient is intubated - Constitutional Vitals: Vital Signs - 12hr 11/02/20 11/02/20 11/02/20 19:15 19:30 19:45 Temperature Pulse Rate 72 70 70 Pulse Rate [ From Monitor] Respiratory 20 19 19 Rate Blood Pressure 94/49 106/50 97/49 O2 Sat by Pulse 99 100 98 Oximetry 11/02/20 11/02/20 11/02/20 20:00 20:16 20:30 Temperature 96.9 F L Pulse Rate 69 75 73 Pulse Rate [ 74 From Monitor] Respiratory 21 19 20 Rate Blood Pressure 100/48 100/48 104/48 O2 Sat by Pulse 98 72 L 99 Oximetry 11/02/20 11/02/20 11/02/20 20:45 21:00 21:15 Temperature Pulse Rate 70 90 74 Pulse Rate [ From Monitor] Respiratory 21 21 20 Rate Blood Pressure 114/51 112/42 102/46 O2 Sat by Pulse 99 96 97 Oximetry 11/02/20 11/02/20 11/02/20 21:30 21:45 22:00 Temperature Pulse Rate 74 81 74 Pulse Rate [ From Monitor] Respiratory 18 21 20 Rate Blood Pressure 103/49 97/42 113/46 O2 Sat by Pulse 98 98 97 Oximetry 04/04/21 04/04/21 04/04/21 22:15 22:30 22:45 Temperature Pulse Rate 76 74 75 Pulse Rate [ From Monitor] Respiratory 18 21 18 Rate Blood Pressure 108/42 100/49 106/45 O2 Sat by Pulse 98 97 98 Oximetry 11/02/20 11/02/20 11/02/20 22:55 23:00 23:15 Temperature Pulse Rate 77 74 74 Pulse Rate [ From Monitor] Respiratory 19 24 20 Rate Blood Pressure 106/45 100/43 102/45 O2 Sat by Pulse 97 97 97 Oximetry 11/02/20 11/02/20 11/03/20 23:30 23:45 00:00 Temperature 97.0 F L Pulse Rate 75 99 H 108 H Pulse Rate [ 80 From Monitor] Respiratory 21 20 16 Rate Blood Pressure 94/49 107/48 87/49 O2 Sat by Pulse 97 97 96 Oximetry 11/03/20 11/03/20 11/03/20 00:15 00:21 00:30 Temperature Pulse Rate 102 H 87 75 Pulse Rate [ From Monitor] Respiratory 18 18 Rate Blood Pressure 88/45 88/45 104/44 O2 Sat by Pulse 96 96 96 Oximetry 11/03/20 11/03/20 11/03/20 00:45 01:00 01:15 Temperature Pulse Rate 80 78 77 Pulse Rate [ From Monitor] Respiratory 16 19 19 Rate Blood Pressure 103/45 95/44 106/44 O2 Sat by Pulse 95 96 96 Oximetry 11/03/20 11/03/20 11/03/20 01:30 01:45 02:00 Temperature Pulse Rate 79 77 77 Pulse Rate [ From Monitor] Respiratory 18 17 19 Rate Blood Pressure 97/48 102/42 104/42 O2 Sat by Pulse 97 97 Oximetry 11/03/20 11/03/20 11/03/20 02:15 02:30 02:45 Temperature Pulse Rate 77 77 92 H Pulse Rate [ From Monitor] Respiratory 20 22 11 L Rate Blood Pressure 101/45 100/43 102/47 O2 Sat by Pulse 98 97 96 Oximetry 11/03/20 11/03/20 11/03/20 03:00 03:15 03:29 Temperature Pulse Rate 75 82 86 Pulse Rate [ From Monitor] Respiratory 20 19 Rate Blood Pressure 98/41 92/41 92/41 O2 Sat by Pulse 91 97 97 Oximetry 11/03/20 11/03/20 11/03/20 03:30 03:45 03:55 Temperature 96.8 F L Pulse Rate 80 116 H Pulse Rate [ From Monitor] Respiratory 18 18 Rate Blood Pressure 97/43 99/50 O2 Sat by Pulse 97 98 Oximetry 11/03/20 11/03/20 11/03/20 04:00 04:15 04:30 Temperature Pulse Rate 78 79 78 Pulse Rate [ 76 From Monitor] Respiratory 21 20 20 Rate Blood Pressure 101/43 108/50 94/49 O2 Sat by Pulse 98 99 98 Oximetry General appearance: Present: no acute distress, well-nourished - EENT Eyes: PERRL, EOM intact ENT: hearing intact, clear oral mucosa Ears: bilateral: normal - Neck Neck: supple, normal ROM - Respiratory Respiratory effort: normal Respiratory: bilateral: CTA - Breasts Breasts: normal - Cardiovascular Rhythm: regular Heart Sounds: Present: S1 & S2. Absent: gallop, rub Extremities: pulses intact, No edema, normal color, Full ROM - Gastrointestinal General gastrointestinal: Present: soft, non-tender, non-distended, normal bowel sounds - Genitourinary Male genitourinary: normal - Integumentary Integumentary: clear, warm, dry - Musculoskeletal Musculoskeletal: 1, strength equal bilaterally - Neurologic Neurologic: moves all extremities - Psychiatric Psychiatric: memory intact, appropriate mood/affect, intact judgment & insight - Labs CBC & Chem 7: 11/04/20 05:34 11/04/20 05:34 Labs: Abnormal lab results 11/02/20 11/02/20 11/02/20 Range/Units 06:29 08:40 08:40 WBC 16.6 H (4.5-11.0) K/mm3 RBC 2.87 L (3.65-5.03) M/mm3 Hgb 8.8 L (11.8-15.2) gm/dl Hct 26.6 L (35.5-45.6) % RDW 15.8 H (13.2-15.2) % Plt Count 30 L (140-440) K/mm3 Seg Neuts % (Manual) 97.0 H (40.0-70.0) % Lymphocytes % (Manual) 2.0 L (13.4-35.0) % Nucleated RBC % 1.0 H (0.0-0.9) % Seg Neutrophils # Man 16.1 H (1.8-7.7) K/mm3 Lymphocytes # (Manual) 0.3 L (1.2-5.4) K/mm3 Potassium 2.4 L* D (3.6-5.0) mmol/L Chloride 110.2 H (98-107) mmol/L BUN 23 H (9-20) mg/dL Creatinine 0.4 L (0.8-1.3) mg/dL Glucose 154 H (75-100) mg/dL POC Glucose 131 H (70-105) mg/dL Calcium 6.1 L (8.4-10.2) mg/dL Magnesium 1.50 L (1.7-2.3) mg/dL 11/02/20 11/02/20 11/02/20 Range/Units 13:17 17:25 18:05 WBC (4.5-11.0) K/mm3 RBC (3.65-5.03) M/mm3 Hgb (11.8-15.2) gm/dl Hct (35.5-45.6) % RDW (13.2-15.2) % Plt Count (140-440) K/mm3 Seg Neuts % (Manual) (40.0-70.0) % Lymphocytes % (Manual) (13.4-35.0) % Nucleated RBC % (0.0-0.9) % Seg Neutrophils # Man (1.8-7.7) K/mm3 Lymphocytes # (Manual) (1.2-5.4) K/mm3 Potassium 3.1 L D (3.6-5.0) mmol/L Chloride (98-107) mmol/L BUN (9-20) mg/dL Creatinine (0.8-1.3) mg/dL Glucose (75-100) mg/dL POC Glucose 134 H 140 H (70-105) mg/dL Calcium (8.4-10.2) mg/dL Magnesium (1.7-2.3) mg/dL 11/02/20 11/03/20 11/03/20 Range/Units 23:36 04:15 05:07 WBC (4.5-11.0) K/mm3 RBC (3.65-5.03) M/mm3 Hgb (11.8-15.2) gm/dl Hct (35.5-45.6) % RDW (13.2-15.2) % Plt Count (140-440) K/mm3 Seg Neuts % (Manual) (40.0-70.0) % Lymphocytes % (Manual) (13.4-35.0) % Nucleated RBC % (0.0-0.9) % Seg Neutrophils # Man (1.8-7.7) K/mm3 Lymphocytes # (Manual) (1.2-5.4) K/mm3 Potassium 3.0 L (3.6-5.0) mmol/L Chloride 111.8 H (98-107) mmol/L BUN 24 H (9-20) mg/dL Creatinine 0.3 L (0.8-1.3) mg/dL Glucose 141 H (75-100) mg/dL POC Glucose 127 H 156 H (70-105) mg/dL Calcium 5.8 L* (8.4-10.2) mg/dL Magnesium 1.60 L (1.7-2.3) mg/dL HEART Score - HEART Score EKG: Non-specific Age: > 65 Risk factors: > 3 risk factors or hx of atherosclerotic disease Troponin: Troponin T 0.062 ng/mL (0.00-0.029) H 10/26/20 17:25 Troponin: < normal limit - Critical Actions Critical Actions: 4-6 pts:12-16.6% risk of adverse cardiac event. Should be admitted
--- NOTE | 2020-11-03 09:04 | Progress Note ---
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 ABG O2 Saturation ABG Base Excess ABG Hemoglobin ABG Oxyhemoglobin ABG Potassium ABG Chloride ABG Glucose Carboxyhemoglobin Sodium Potassium 2.4 L* D Chloride 110.2 H Carbon Dioxide BUN 23 H Creatinine 0.4 L Glucose 154 H POC Glucose 131 H Lactic Acid Calcium 6.1 L Magnesium 1.50 L Total Creatine Kinase Troponin T Total Protein Albumin Triglycerides LDL Cholesterol Direct HDL Cholesterol Arterial Blood Glucose Arterial Blood Ionized Calcium Urine pH Urine WBC (Auto) Vancomycin Trough Salicylates Acetaminophen Crossmatch 11/02/20 11/02/20 11/02/20 13:17 17:25 18:05 WBC RBC Hgb Hct MCV MCHC RDW Plt Count Seg Neuts % (Manual) Lymphocytes % (Manual) Nucleated RBC % Seg Neutrophils # Man Lymphocytes # (Manual) Monocytes # (Manual) ABG pH POC ABG pCO2 POC ABG pO2 ABG pO2 ABG HCO3 ABG O2 Saturation ABG Base Excess ABG Hemoglobin ABG Oxyhemoglobin ABG Potassium ABG Chloride ABG Glucose Carboxyhemoglobin Sodium Potassium 3.1 L D Chloride Carbon Dioxide BUN Creatinine Glucose POC Glucose 134 H 140 H Lactic Acid Calcium Magnesium Total Creatine Kinase Troponin T Total Protein Albumin Triglycerides LDL Cholesterol Direct HDL Cholesterol Arterial Blood Glucose Arterial Blood Ionized Calcium Urine pH Urine WBC (Auto) Vancomycin Trough Salicylates Acetaminophen Crossmatch 11/02/20 11/03/20 11/03/20 23:36 04:15 05:07 WBC RBC Hgb Hct MCV MCHC RDW Plt Count Seg Neuts % (Manual) Lymphocytes % (Manual) Nucleated RBC % Seg Neutrophils # Man Lymphocytes # (Manual) Monocytes # (Manual) ABG pH POC ABG pCO2 POC ABG pO2 ABG pO2 ABG HCO3 ABG O2 Saturation ABG Base Excess ABG Hemoglobin ABG Oxyhemoglobin ABG Potassium ABG Chloride ABG Glucose Carboxyhemoglobin Sodium Potassium 3.0 L Chloride 111.8 H Carbon Dioxide BUN 24 H Creatinine 0.3 L Glucose 141 H POC Glucose 127 H 156 H Lactic Acid Calcium 5.8 L* Magnesium 1.60 L Total Creatine Kinase Troponin T Total Protein Albumin Triglycerides LDL Cholesterol Direct HDL Cholesterol Arterial Blood Glucose Arterial Blood Ionized Calcium Urine pH Urine WBC (Auto) Vancomycin Trough Salicylates Acetaminophen Crossmatch Allied health notes reviewed: nursing
[2020-11-03] MEDS: AMIODARONE 200 MG TAB PO SCH ×2 (09:25→21:30)
[2020-11-03] MEDS: FAMOTIDINE 20 MG/2 ML INJ IV SCH ×2 (09:25→21:30)
[2020-11-03] MEDS: POTASSIUM CHLORIDE 20 MEQ PACKET FEEDTUBE SCH ×2 (09:25→14:19)
[2020-11-03] MEDS ORDERED: MAGNESIUM SULFATE 2 GM/50 ML BAG IV ONE ×2 (09:30→12:00)
[2020-11-03] MEDS: SODIUM HYPOCHLORITE, DAKIN'S 1/2 STRENGTH (0.25%) 473 ML TOPICAL SOLN TP SCH ×2 (09:31→21:30)
[2020-11-03] MEDS: NORepinephrine/NS 4 MG-250 ML 4 MG/250 ML BAG IV SCH ×2 (09:36→19:57)
[2020-11-03] MEDS: POTASSIUM CHLORIDE 20 MEQ 20 MEQ/100 ML BAG IV SCH ×2 (10:35→11:38)
--- NOTE | 2020-11-03 10:42 | Event Note ---
Date: 11/03/20 Pt's cousin, Jon Buckley, who happens to be the closest next of kin who was able to reached, left paperwork regarding physician documentation to certify the patient Hebert Buckley is not capable of making decisions and would lauri him guardianship to make health decisions on his behalf. Paperwork was completed and notarized. Jon Buckley was notified that paperwork was complete and he said he would pick it up. I notified case management that documents were completed and discussed.
--- NOTE | 2020-11-03 12:35 | Progress Note ---
Assessment and Plan Assessment and plan: Sepsis -FAZAL, pneumonia, infected sacral wound, acute respiratory failure, leukocytosis, hypotension requiring vasopressor support -Antibiotic therapy -Trend CBC -10/26 tracheal aspirate with MRSA, 10/26 blood cultures x2 with Proteus mirabilis, 10/27 urine culture possible contaminant -ID consulted, appreciate recommendations Acute respiratory failure -CCM consulted, appreciate recommendations -Mechanical ventilation, wean as tolerated -VAP bundle Infected sacral wound s/p debridement with surgery -Antibiotic therapy -Surgery and WOCN consulted, appreciate recommendations -Wound care per nursing Anemia s/p 2 units prbc -10/30 received 2 units PRBC -Trend CBC Proteus bacteremia -Antibiotic therapy per ID MRSA pneumonia -Antibiotic therapy per ID Urine tract infection -Evidence on UA -Antibiotic therapy per ID Acute kidney injury -Nephrology consulted, appreciate recommendations -Trend BMP Strict intake and output Daily weights Leukocytosis -Trend CBC -Antibiotic therapy Hypokalemia -Replete potassium as needed -Trend potassium Hypocalcemia -Trend BMP Hypomagnesemia -Replete magnesium as needed -Trend magnesium Lactic acidosis -S/p IVF resuscitation -Trend lactic acid Thrombocytopenia -Trend CBC -HIT panel pending Atrial fibrillation with RVR -Cardiology consulted, appreciate recommendations -Amiodarone for rate control GI/DVT prophylaxis: No chemical anticoagulation r/t thrombocytopenia, SCDs to bilateral legs while in bed, PPI Dispo: ICU The high probability of a clinically significant, sudden or life threatening deterioration of the [multi] system(s) required my full and direct attention, intervention and personal management. The aggregate critical care time was [35] minutes. This time is in addition to time spent performing reported procedures but includes the following: [x] Data Review and interpretation [x] Patient assessment and monitoring of vital signs [x] Documentation [x] Medication orders and management History Interval history: This is a 75-year-old male who is a fdc resident with seizure disorder, hypertension, depression, hyperlipidemia, hypoglycemia, dysphagia, and encephalopathy who presents to the emergency department on 10/26 via EMS for tachypnea, dry mucous membranes and hypoxia. Patient was hypotensive, febrile to 103 degrees and hypoxic in the emergency department therefore he was intubated and central IV access was obtained. Patient received 3.5 L of IV fluid in the emergency department. Patient was admitted to the hospital service with consults to CCM, surgery, WOCN and ID for Sepsis, acute kidney injury, urinary tract infection, acute respiratory failure, electrolyte imbalances and bilateral pneumonia. Sepsis Acute respiratory failure Infected sacral wound s/p debridement with surgery Anemia s/p 2 units prbc Proteus bacteremia MRSA pneumonia Urine tract infection Acute kidney injury Leukocytosis Hypokalemia Hypocalcemia Hypomagnesemia Lactic acidosis 10/27: Patient received additional 4 L LR for fluid resuscitation and CV monitoring was initiated. Patient is on Levophed. ID added Flagyl to vancomycin and cefepime. His trach aspirate grew staph coccus aureus. At the time my examination patient the fentanyl drip was held by RN and he was on 14 MCG of Levophed. This morning he was on assist control 450/20/6/.100. We will give additional bolus of fluids with goal CVP 10-12 and repeat labs in AM. Surgery was consulted to possible debridement. 10/28: Overnight it was noted that patient went into SVT and he was given adenosine 6 mg/12 mg / 12 mg once and was started on a Cardizem drip after no response to amnio bolus and cardiology was consulted. Currently patient remains on Levophed drip and is hypotensive and received additional 2 L of bolus for goal CVP of 10-12. Infectious disease changed cefepime/Flagyl to meropenem for GNR in his blood cultures 09/04 and will continue vancomycin. Patient currently was not well controlled on max Cardizem and cardiology initiated amiodarone. Patient still is very tachycardic. Patient is hypomagnesemic and we will replete his Mg and recheck level. We will give the patient additional to complete resolve LR this afternoon. Patient has a standing order per [facility] to bolus the patient with LR for CVP goal of 10-12. This morning he is hyperchlormeic, metabolic acidotic (bicarb drip initiated) and his BUN/creatinine slightly elevated. Patient still remains lactic acidotic. 10/29: Patient's blood culture speciated to Proteus and his tracheal aspirate is MRSA. He is currently on ceftriaxone, Flagyl and vancomycin. Patient heart rate consistently is 110-150s and cardiology has given him an amiodarone bolus today and he remains on amiodarone drip. He looks much started on IV digoxin. This morning 4 L LR bolus was ordered and we will bolus an additional 4 L of LR this afternoon. Patient still has lactic acidosis, metabolic acidosis, leukocytosis and hyperchloremia. On examination this morning patient is more edematous and he remains on Levophed and amnio drip. 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 Remains on amio, levo and sedated with fentanyl. He is hypokalemic today which was repleted, h/h 02/18 and he is being type and crossed today with 2 units PRBC ordered to be transfused. Plt drop noted, heparin discontinued and HIT ordered. Bicarb gtt discontinued. No acute events overnight. 10/31: Patient hypomagnesemia today which was repleted and cardiology has changed his IV amiodarone to p.o. Patient will get albumin per [facility]. At the time my ex amination patient is on assist control 450/20/6/0.40. 11/03: At the time my examination patient is on assist control 450/20/6/0.25 and sedated with fentanyl and on Levophed at 4.Patient's leukocytosis is improving he received Albumin this weekend. Patient is hypokalemic, hypomagnesemic, hypocalcemic today. We will repeat his electrolytes and recheck a BMP in the a.m. Patient received 2 units PRBC on 10/30 and his hemoglobin has been trending down. We will recheck in the a.m. Hospitalist Physical - Constitutional Vitals: Temp Pulse Resp BP Pulse Ox 98.4 F 82 24 106/58 98 11/03/20 11:31 11/03/20 11:30 11/03/20 11:30 11/03/20 11:30 11/03/20 11:30 General appearance: Present: no acute distress, well-nourished, other (Patient sedated and orally intubated) - EENT Eyes: Present: PERRL (Sluggish) - Neck Neck: Absent: masses or JVD, cervical LAD - Respiratory Respiratory effort: normal Respiratory: bilateral: diminished, rhonchi - Cardiovascular Rhythm: regular Heart Sounds: Present: S1 & S2. Absent: systolic murmur, diastolic murmur - Extremities Extremities: no ischemia, pulses intact, pulses symmetrical, normal temperature, normal color Extremity abnormal: edema - Peripheral Assessment Generalized Edema Type: Pitting Edema Degree: 1+ Capillary Refill: < 3 seconds Skin Temperature: Cool Peripheral Pulses: within normal limits - Abdominal General gastrointestinal: soft, non-tender, non-distended, normal bowel sounds - Integumentary Integumentary: Present: warm, dry - Psychiatric Psychiatric: other (Sedated) - Neurologic Neurologic: other (Sedated) - Allied Health Allied health notes reviewed: nursing, RT, social work HEART Score - HEART Score EKG: Non-specific Age: > 65 Risk factors: > 3 risk factors or hx of atherosclerotic disease Troponin: Troponin T 0.062 ng/mL (0.00-0.029) H 10/26/20 17:25 Troponin: < normal limit - Critical Actions Critical Actions: 4-6 pts:12-16.6% risk of adverse cardiac event. Should be admitted Results - Labs CBC & Chem 7: 11/02/20 08:40 11/03/20 04:15 Labs: Laboratory Last Values WBC 16.6 K/mm3 (4.5-11.0) H 11/02/20 08:40 RBC 2.87 M/mm3 (3.65-5.03) L 11/02/20 08:40 Hgb 8.8 gm/dl (11.8-15.2) L 11/02/20 08:40 Hct 26.6 % (35.5-45.6) L 11/02/20 08:40 MCV 93 fl (84-94) 11/02/20 08:40 MCH 31 pg (28-32) 11/02/20 08:40 MCHC 33 % (32-34) 11/02/20 08:40 RDW 15.8 % (13.2-15.2) H 11/02/20 08:40 Plt Count 30 K/mm3 (140-440) L 11/02/20 08:40 Add Manual Diff Complete 11/02/20 08:40 Total Counted 100 11/02/20 08:40 Seg Neutrophils % Wind Turbine Mechanic 11/02/20 08:40 Seg Neuts % (Manual) 97.0 % (40.0-70.0) H 11/02/20 08:40 Band Neutrophils % 17.0 % 10/27/20 03:30 Lymphocytes % (Manual) 2.0 % (13.4-35.0) L 11/02/20 08:40 Monocytes % (Manual) 1.0 % (0.0-7.3) 11/02/20 08:40 Eosinophils % (Manual) 2.0 % (0.0-4.3) 10/27/20 03:30 Metamyelocytes % 4.0 % 10/27/20 03:30 Nucleated RBC % 1.0 % (0.0-0.9) H 11/02/20 08:40 Seg Neutrophils # Man 16.1 K/mm3 (1.8-7.7) H 11/02/20 08:40 Band Neutrophils # 0.0 K/mm3 11/02/20 08:40 Lymphocytes # (Manual) 0.3 K/mm3 (1.2-5.4) L 11/02/20 08:40 Abs React Lymphs (Man) 0.0 K/mm3 11/02/20 08:40 Monocytes # (Manual) 0.2 K/mm3 (0.0-0.8) 11/02/20 08:40 Eosinophils # (Manual) 0.0 K/mm3 (0.0-0.4) 11/02/20 08:40 Basophils # (Manual) 0.0 K/mm3 (0.0-0.1) 11/02/20 08:40 Metamyelocytes # 0.0 K/mm3 11/02/20 08:40 Myelocytes # 0.0 K/mm3 11/02/20 08:40 Promyelocytes # 0.0 K/mm3 11/02/20 08:40 Blast Cells # 0.0 K/mm3 11/02/20 08:40 WBC Morphology Not Reportable 11/02/20 08:40 Hypersegmented Neuts Not Reportable 11/02/20 08:40 Hyposegmented Neuts Not Reportable 11/02/20 08:40 Hypogranular Neuts Not Reportable 11/02/20 08:40 Smudge Cells Not Reportable 11/02/20 08:40 Toxic Granulation Not Reportable 11/02/20 08:40 Toxic Vacuolation Not Reportable 11/02/20 08:40 Dohle Bodies Not Reportable 11/02/20 08:40 Pelger-Huet Anomaly Not Reportable 11/02/20 08:40 Kassi Rods Not Reportable 11/02/20 08:40 Platelet Estimate Consistent w auto 11/02/20 08:40 Clumped Platelets Not Reportable 11/02/20 08:40 Plt Clumps, EDTA Not Reportable 11/02/20 08:40 Large Platelets Not Reportable 11/02/20 08:40 Giant Platelets Not Reportable 11/02/20 08:40 Platelet Satelliting Not Reportable 11/02/20 08:40 Plt Morphology Comment Not Reportable 11/02/20 08:40 RBC Morphology Normal 11/02/20 08:40 Dimorphic RBCs Not Reportable 11/02/20 08:40 Polychromasia Not Reportable 11/02/20 08:40 Hypochromasia Not Reportable 11/02/20 08:40 Poikilocytosis Not Reportable 11/02/20 08:40 Anisocytosis Not Reportable 11/02/20 08:40 Microcytosis Not Reportable 11/02/20 08:40 Macrocytosis Not Reportable 11/02/20 08:40 Spherocytes Not Reportable 11/02/20 08:40 Pappenheimer Bodies Not Reportable 11/02/20 08:40 Sickle Cells Not Reportable 11/02/20 08:40 Target Cells Not Reportable 11/02/20 08:40 Tear Drop Cells Not Reportable 11/02/20 08:40 Ovalocytes Not Reportable 11/02/20 08:40 Helmet Cells Not Reportable 11/02/20 08:40 [place] Bodies Not Reportable 11/02/20 08:40 [place] Rings Not Reportable 11/02/20 08:40 Rhea Cells Not Reportable 11/02/20 08:40 Bite Cells Not Reportable 11/02/20 08:40 Crenated Cell Not Reportable 11/02/20 08:40 Elliptocytes Not Reportable 11/02/20 08:40 Acanthocytes (Spur) Not Reportable 11/02/20 08:40 Rouleaux Not Reportable 11/02/20 08:40 Hemoglobin C Crystals Not Reportable 11/02/20 08:40 Schistocytes Not Reportable 11/02/20 08:40 Malaria parasites Not Reportable 11/02/20 08:40 Richard Bodies Not Reportable 11/02/20 08:40 Hem Pathologist Commnt No 11/02/20 08:40 APTT 27.9 Sec. (24.2-36.6) 10/26/20 17:25 ABG pH 7.456 pH Units (7.350-7.450) H 11/02/20 04:30 POC ABG pCO2 25.7 mmHg (32.0-48.0) L 10/31/20 03:42 ABG pCO2 35.7 mm Hg 11/02/20 04:30 POC ABG pO2 52.3 mmHg (83-108) L 10/31/20 03:42 ABG pO2 88.3 mm Hg (80.0-90.0) 11/02/20 04:30 POC ABG HCO3 20.4 10/31/20 03:42 ABG HCO3 24.6 mmol/L (20.0-26.0) 11/02/20 04:30 ABG O2 Saturation 97.2 % (95.0-99.0) 11/02/20 04:30 ABG O2 Content 12.4 (0.0-44) 11/02/20 04:30 POC ABG Base Excess -1.1 10/31/20 03:42 ABG Base Excess 0.8 mmol/L (-2.0-3.0) 11/02/20 04:30 ABG Hemoglobin 9.2 gm/dl (14.0-18.0) L 11/02/20 04:30 ABG Oxyhemoglobin 90.8 (94-98) L 10/31/20 03:42 ABG Carboxyhemoglobin 1.4 % (0.0-5.0) 11/02/20 04:30 ABG Methemoglobin 0.6 % (0.0-1.5) 11/02/20 04:30 ABG Sodium 137.2 mmol/L (136.0-145.0) 10/31/20 03:42 ABG Potassium 3.4 mmol/L (3.40-4.50) 10/31/20 03:42 ABG Chloride 109.0 mmol/L (98-107) H 10/31/20 03:42 ABG Glucose 147 mg/dL (65-95) H 10/31/20 03:42 Oxyhemoglobin 95.3 % (95.0-99.0) 11/02/20 04:30 Carboxyhemoglobin 0.8 (0.5-1.5) 10/31/20 03:42 FiO2 35 % 11/02/20 04:30 FiO2 % 30 10/31/20 03:42 Sodium 145 mmol/L (137-145) 11/03/20 04:15 Potassium 3.0 mmol/L (3.6-5.0) L 11/03/20 04:15 Chloride 111.8 mmol/L (98-107) H 11/03/20 04:15 Carbon Dioxide 25 mmol/L (22-30) 11/03/20 04:15 Anion Gap 11 mmol/L 11/03/20 04:15 BUN 24 mg/dL (9-20) H 11/03/20 04:15 Creatinine 0.3 mg/dL (0.8-1.3) L 11/03/20 04:15 Estimated GFR > 60 ml/min 11/03/20 04:15 BUN/Creatinine Ratio 80 % 11/03/20 04:15 Glucose 141 mg/dL (75-100) H 11/03/20 04:15 POC Glucose 137 mg/dL (70-105) H 11/03/20 11:14 Hemoglobin A1c 5.5 % (4-6) 10/27/20 04:42 Lactic Acid 4.30 mmol/L (0.7-2.0) H* 10/31/20 Unknown Calcium 5.8 mg/dL (8.4-10.2) L* 11/03/20 04:15 Phosphorus 2.80 mg/dL (2.5-4.5) 10/28/20 00:40 Magnesium 1.60 mg/dL (1.7-2.3) L 11/03/20 04:15 Total Bilirubin 0.20 mg/dL (0.1-1.2) 10/29/20 05:15 AST 14 units/L (5-40) 10/29/20 05:15 ALT 12 units/L (7-56) 10/29/20 05:15 Alkaline Phosphatase 98 units/L (35-129) 10/29/20 05:15 Total Creatine Kinase 31 units/L (55-170) L 10/26/20 17:28 Troponin T 0.062 ng/mL (0.00-0.029) H 10/26/20 17:25 Total Protein 6.0 g/dL (6.3-8.2) L 10/29/20 05:15 Albumin 1.0 g/dL (3.9-5) L 10/29/20 05:15 Albumin/Globulin Ratio 0.2 % 10/29/20 05:15 Triglycerides 190 mg/dL (2-149) H 10/26/20 17:25 Cholesterol 92 mg/dL (50-199) 10/26/20 17:25 LDL Cholesterol Direct 33 mg/dL (50-130) L 10/26/20 17:25 HDL Cholesterol 18 mg/dL (40-59) L 10/26/20 17:25 Cholesterol/HDL Ratio 5.11 % 10/26/20 17:25 TSH 1.490 mlU/mL (0.270-4.200) 10/26/20 17:28 Arterial Blood Glucose 147 mg/dL (65-95) H 10/31/20 03:42 Arterial Blood Ionized Calcium 4.0 mg/dL (4.6-5.3) L 10/31/20 03:42 Urine Color Yellow (Yellow) 10/27/20 Unknown Urine Turbidity Turbid (Clear) 10/27/20 Unknown Urine pH 8.0 (5.0-7.0) H 10/27/20 Unknown Ur Specific [place] 1.020 (1.003-1.030) 10/27/20 Unknown Urine Protein >500 mg/dL (Negative) 10/27/20 Unknown Urine Glucose (UA) Neg mg/dL (Negative) 10/27/20 Unknown Urine Ketones Neg mg/dL (Negative) 10/27/20 Unknown Urine Blood Sm (Negative) 10/27/20 Unknown Urine Nitrite Neg (Negative) 10/27/20 Unknown Urine Bilirubin Neg (Negative) 10/27/20 Unknown Urine Urobilinogen < 2.0 mg/dL (<2.0) 10/27/20 Unknown Ur Leukocyte Esterase Mod (Negative) 10/27/20 Unknown Urine WBC (Auto) > 182.0 /HPF (0.0-6.0) H 10/27/20 Unknown Urine RBC (Auto) 35.0 /HPF (0.0-6.0) 10/27/20 Unknown Urine WBC Clumps 3+ /HPF 10/27/20 Unknown Urine Mucus 3+ /HPF 10/27/20 Unknown Urine Yeast (Budding) 3+ /HPF 10/27/20 Unknown Vancomycin Trough 22.0 ug/mL (5.0-20.0) H 10/30/20 Unknown Salicylates < 0.3 mg/dL (2.8-20.0) L 10/26/20 17:28 Acetaminophen 5.0 ug/mL (10.0-30.0) L 10/26/20 17:28 Coronavirus (PCR) Negative (Negative) 10/27/20 Unknown Blood Type O POSITIVE 10/30/20 09:30 Antibody Screen Negative 10/30/20 09:30 Crossmatch See Detail 10/30/20 09:30 Rivas/IV: Voiding Method Indwelling Catheter Active Medications - Current Medications Current Medications: Generic Name Dose Route Start Last Admin Trade Name Freq PRN Reason Stop Dose Admin Acetaminophen 650 mg 10/26/20 22:22 11/01/20 02:21 Acetaminophen 325 Mg Tab PO 650 mg Q4H PRN Administration Pain MILD(1-3)/Fever >100.5/TIERNEY Amiodarone HCl 200 mg 10/31/20 12:00 11/03/20 09:25 Amiodarone 200 Mg Tab PO 200 mg BID MARSHALL Administration Lipase/Protease/Amylase 1 each 10/28/20 13:18 Lipase 10,500/Protease 25,000/Amylase 43,750 (Units) Dr Cap FEEDTUBE PRN PRN For Clogged Feeding Tube Famotidine 20 mg 10/28/20 10:00 11/03/20 09:25 Famotidine 20 Mg/2 Ml Inj IV 20 mg BID MARSHALL Administration Fentanyl 50 mcg 10/26/20 17:25 Fentanyl 100 Mcg/2 Ml Inj IV Q10MIN PRN ANALGESIA Fentanyl 50 mcg 10/27/20 10:39 10/29/20 16:05 Fentanyl 100 Mcg/2 Ml Inj IV 50 mcg Q2H PRN Administration Pain , Severe (7-10) Hydrophilic Ointment 1 applic 10/26/20 17:25 Lip Therapy Vaseline TP Q2HR PRN Dry Lips Fentanyl Citrate 2,000 mcg in 100 mls @ 4.165 mls/hr 10/26/20 18:00 11/03/20 10:34 Fentanyl Drip Premix IV 0 mcg/kg/hr TITR MARSHALL 0 mls/hr Titration Protocol 1 MCG/KG/HR Norepinephrine 4 mg in 250 mls @ 112.5 mls/hr 10/28/20 01:00 11/03/20 11:15 Levophed Drip 4 Mg/Ns 250 Ml IV 6 mcg/min TITR MARSHALL 22.5 mls/hr Titration Protocol 30 MCG/MIN Vasopressin 20 unit/ Sodium 101 mls @ 9.09 mls/hr 10/28/20 16:00 Chloride IV TITR MARSHALL Protocol 0.03 UNITS/MIN Ceftriaxone Sodium 2 gm in 100 mls @ 200 mls/hr 10/29/20 13:00 11/02/20 13:31 Rocephin/Ns 2 Gm/100 Ml IV 11/12/20 13:29 200 mls/hr Q24H MARSHALL Administration Protocol Metronidazole 500 mg in 100 mls @ 100 mls/hr 10/29/20 14:00 11/03/20 09:31 Flagyl 500 Mg/100 Ml IV 11/12/20 14:59 Infused Q8H MARSHALL Infusion Protocol Magnesium Sulfate 2 gm in 50 mls @ 25 mls/hr 11/03/20 12:00 11/03/20 11:38 Magnesium Sulfate 2gm/50ml IV 11/03/20 13:59 25 mls/hr ONCE ONE Administration Multi-Ingred Cream/Lotion/Oil/Oint 1 applic 10/26/20 17:25 Mineral Oil/Petrolatum, White Ophth Oint 3.5 Gm OU Q4HR PRN Dry Eye(s) Ondansetron HCl 4 mg 10/26/20 22:22 Ondansetron 4 Mg/2 Ml Inj IV Q8H PRN Nausea And Vomiting Potassium Chloride 40 meq 11/03/20 09:30 11/03/20 09:25 Potassium Chloride 20 Meq Packet FEEDTUBE 11/03/20 13:31 40 meq Q4H MARSHALL Administration Simple Syrup 15 ml 10/28/20 13:18 Simple Syrup 15 Ml FEEDTUBE PRN PRN Hypoglycemia Simple Syrup 30 ml 10/28/20 13:18 Simple Syrup 15 Ml FEEDTUBE PRN PRN Hypoglycemia Sodium Bicarbonate 325 mg 10/28/20 13:18 Sodium Bicarbonate 325 Mg Tab FEEDTUBE PRN PRN For Clogged Feeding Tube Sodium Chloride 5 ml 10/26/20 17:25 Sodium Chloride 0.9% 500 Ml Ivpb IV DIRECT PRN ARTERIAL DIRECTOR VALIDATION Sodium Chloride 10 ml 10/27/20 10:00 11/03/20 09:25 Sodium Chloride 0.9% 10 Ml Flush Syringe IV 10 ml BID MARSHALL Administration Sodium Chloride 10 ml 10/26/20 22:22 Sodium Chloride 0.9% 10 Ml Flush Syringe IV PRN PRN LINE FLUSH Sodium Hypochlorite 1 applic 10/28/20 10:00 11/03/20 09:31 Sodium Hypochlorite, Dakin's 1/2 Strength (0.25%) 473 Ml Topical Soln TP 1 applicatio BID MARSHALL Administration Nutrition/Malnutrition Assess - Dietary Evaluation Nutrition/Malnutrition Findings: Nutrition Notes Start: 10/27/20 09:15 Freq: Status: Active Protocol: Document 11/03/20 11:39 CW (Rec: 11/03/20 11:57 CW [email or web address]) Nutrition Notes Initial or Follow up Reassessment Current Diagnosis Acute Kidney Injury,Decubitus( Pressure Ulcer),Sepsis, Hypertension,Respiratory Failure,Hyperlipidemia Other Pertinent Diagnosis AMS, MRSA, Encephalopathy, Metabiloc Acidosis, pneu ,FTT Current Diet Vital HP at 80 ml/hr Labs/Tests K 3 BUN 24 BG 141 Pertinent Medications KCl 20 mEq/100ml Levophed KCl 40 Meq Flagyl Height 6 ft 2 in Weight 121.2 kg [place] Body Weight (kg) 86.36 BMI 34.2 Weight change and time frame Weight increase likely d/t 2+ pitting edema Weight Status Obese Subjective/Other Information F/U for TF at goal and vent status. Pt remains on mechanical vent. TF of Vital HP is running at goal of 80 ml /hr and is being well tolerated. Percent of energy/protein needs met: 100%/100% Burn Absent Trauma Absent Difficulty In Swallowing,Chewing Skin Integrity/Comment Multiple pressure ulcer,1 infected Current % PO Negligible Minimum of two criteria No Fluid Accumulation Moderate to Severe (severe) #1 Nutrition Diagnosis Inadequate oral intake Diagnosis Progress(for reassessment Continues documentation) Is patient on ventilator? Yes Is Patient Ambulatory and/or Out of Bed No REE-([facility]-confined to bed) 2419.944 Kcal/Kg value to use for calculation 15 Approximate Energy Requirements Using 1818 kcal/Kg Calculation Used for Recommendations Kcal/kg Additional Notes protein needs: >163g (>2g/kgBW ) Fluid needs 1 ml/kcal Nutrition Intervention Change Diet Order: Continue TF Nutrition Support: Vital HP at 80 ml/hr with a free water flush of 50 ml q4h Kcal 1,920 Protein (gm) 168 Fluid (mL) 1,605 Goal #1 TF tolerance Goal #2 wound healing Anticipated Discharge Needs: unable to determine at this time Follow-Up By: 11/05/20 Additional Comments TF Tolerance, Vent status
[2020-11-03] MEDS: cefTRIAXone/NS 2 GM/100 ML 2 GM/100 ML BAG IV SCH (14:20)
--- NOTE | 2020-11-03 14:35 | Progress Note ---
Assessment and Plan Cont PO amio. Wean vasopressors as tolerated. No systemic AC at this time in regards to AFib in setting of anemia requiring PRBC tx, thrombocytopenia and sacral ulcer (pt is s/p debulking debridement but not a candidate at this time for more aggressive debridement given clinical instability and malnutrition per general surgery). Overall guarded prognosis. Cont supportive management. The patient has been seen in conjunction with Dr. Lyndon Baldwin who agrees with the assessment and plan of care. - Patient Problems (1) AMS (altered mental status) Current Visit: Yes Status: Acute (2) Atrial fibrillation with RVR Current Visit: Yes Status: Acute (3) Acute respiratory failure Current Visit: Yes Status: Acute (4) Bilateral pneumonia Current Visit: Yes Status: Acute (5) Sepsis Current Visit: Yes Status: Acute (6) Sepsis associated hypotension Current Visit: Yes Status: Acute (7) Sacral decubitus ulcer, stage IV Current Visit: Yes Status: Acute (8) UTI (urinary tract infection) Current Visit: Yes Status: Acute (9) FAZAL (acute kidney injury) Current Visit: Yes Status: Acute (10) Hypomagnesemia Current Visit: Yes Status: Acute (11) Anemia Current Visit: Yes Status: Acute (12) Thrombocytopenia Current Visit: Yes Status: Acute Subjective Date of service: 11/03/20 Principal diagnosis: Acute Resp Fail, Septic Shock, Sacral Ulcer, AF with RVR Interval history: pt remains intubated. tele reviewed - in AFib/AF HR 80s. levophed gtt infusing. Objective Last Vital Signs Temp 98.4 F 11/03/20 11:31 Pulse 83 11/03/20 14:00 Resp 17 11/03/20 14:00 BP 103/48 11/03/20 14:00 Pulse Ox 97 11/03/20 14:00 - Physical Examination General: Other (intubated, sedated) HEENT: Positive: Normocephaly Neck: Positive: neck supple, trachea midline Cardiac: Positive: irregularly irregular, S1/S2 Lungs: Positive: Decreased Breath Sounds, Oxygen, Ventilated Respirations Neuro: Positive: Other (intubated, sedated) Abdomen: Positive: Soft Skin: Positive: Wound. Negative: Rash Musculoskeletal: No Pain Extremities: Present: upper extr. pulses, lower extr. pulses, edema, Other (chronic skin changes noted) - Labs and Meds Comprehensive Metabolic Panel 11/02/20 11/03/20 Range/Units 18:05 04:15 Sodium 145 (137-145) mmol/L Potassium 3.1 L D 3.0 L (3.6-5.0) mmol/L Chloride 111.8 H (98-107) mmol/L Carbon Dioxide 25 (22-30) mmol/L BUN 24 H (9-20) mg/dL Creatinine 0.3 L (0.8-1.3) mg/dL Glucose 141 H (75-100) mg/dL Calcium 5.8 L* (8.4-10.2) mg/dL - Imaging and Cardiology EKG: report reviewed, image reviewed Echo: report reviewed (10/28/2020- EF 55-60%, no significant valvular abnormalities) - Telemetry EKG Rhythm: Atrial Flutter - Allied health notes Allied health notes reviewed: nursing
[2020-11-03] MEDS: fentaNYL 100 MCG/2 ML INJ IV PRN (18:31)
[2020-11-04] MEDS: metroNIDAZOLE/NS 500 MG/100 ML 500 MG/100 ML BAG IV SCH ×3 (05:41→21:41)
[2020-11-04 06:03] LABS: Hematocrit 24.8 % (35.5-45.6); Hemoglobin 8.2 gm/dl (11.8-15.2); Mean Corpuscular HGB Conc 33 % (32-34); Mean Corpuscular Volume 93 fl (84-94); Red Blood Count 2.67 M/mm3 (3.65-5.03); Red Cell Distribution Width 15.6 % (13.2-15.2)
[2020-11-04 06:05] LABS: Platelet Count 48 K/mm3 (140-440)
[2020-11-04 06:08] LABS: Blood Urea Nitrogen 29 mg/dL (9-20); Hemolysis Index 7
[2020-11-04 06:09] LABS: BUN/Creatinine Ratio 97; Calcium 5.7 mg/dL (8.4-10.2)
[2020-11-04] MEDS ORDERED: CALCIUM GLUCONATE 2,000 MG in SODIUM CHLORIDE 0.9% 100 ML IV ONE (09:00)
[2020-11-04] MEDS: AMIODARONE 200 MG TAB PO SCH ×2 (10:04→21:41)
[2020-11-04] MEDS: FAMOTIDINE 20 MG/2 ML INJ IV SCH ×2 (10:04→21:41)
[2020-11-04] MEDS: SODIUM HYPOCHLORITE, DAKIN'S 1/2 STRENGTH (0.25%) 473 ML TOPICAL SOLN TP SCH ×2 (10:06→21:41)
--- NOTE | 2020-11-04 11:11 | Progress Note ---
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 Creatine Kinase Troponin T Total Protein Albumin Triglycerides LDL Cholesterol Direct HDL Cholesterol Arterial Blood Glucose Arterial Blood Ionized Calcium Urine pH Urine WBC (Auto) Vancomycin Trough Salicylates Acetaminophen Crossmatch 11/02/20 11/02/20 11/02/20 06:29 08:40 08:40 WBC 16.6 H RBC 2.87 L Hgb 8.8 L Hct 26.6 L MCV MCHC RDW 15.8 H Plt Count 30 L Seg Neuts % (Manual) 97.0 H Lymphocytes % (Manual) 2.0 L Nucleated RBC % 1.0 H Seg Neutrophils # Man 16.1 H Lymphocytes # (Manual) 0.3 L Monocytes # (Manual) ABG pH POC ABG pCO2 POC ABG pO2 ABG pO2 ABG HCO3 ABG O2 Saturation ABG Base Excess ABG Hemoglobin ABG Oxyhemoglobin ABG Potassium ABG Chloride ABG Glucose Carboxyhemoglobin Sodium Potassium 2.4 L* D Chloride 110.2 H Carbon Dioxide BUN 23 H Creatinine 0.4 L Glucose 154 H POC Glucose 131 H Lactic Acid Calcium 6.1 L Magnesium 1.50 L Total Creatine Kinase Troponin T Total Protein Albumin Triglycerides LDL Cholesterol Direct HDL Cholesterol Arterial Blood Glucose Arterial Blood Ionized Calcium Urine pH Urine WBC (Auto) Vancomycin Trough Salicylates Acetaminophen Crossmatch 11/02/20 11/02/20 11/02/20 13:17 17:25 18:05 WBC RBC Hgb Hct MCV MCHC RDW Plt Count Seg Neuts % (Manual) Lymphocytes % (Manual) Nucleated RBC % Seg Neutrophils # Man Lymphocytes # (Manual) Monocytes # (Manual) ABG pH POC ABG pCO2 POC ABG pO2 ABG pO2 ABG HCO3 ABG O2 Saturation ABG Base Excess ABG Hemoglobin ABG Oxyhemoglobin ABG Potassium ABG Chloride ABG Glucose Carboxyhemoglobin Sodium Potassium 3.1 L D Chloride Carbon Dioxide BUN Creatinine Glucose POC Glucose 134 H 140 H Lactic Acid Calcium Magnesium Total Creatine Kinase Troponin T Total Protein Albumin Triglycerides LDL Cholesterol Direct HDL Cholesterol Arterial Blood Glucose Arterial Blood Ionized Calcium Urine pH Urine WBC (Auto) Vancomycin Trough Salicylates Acetaminophen Crossmatch 11/02/20 11/03/20 11/03/20 23:36 04:15 05:07 WBC RBC Hgb Hct MCV MCHC RDW Plt Count Seg Neuts % (Manual) Lymphocytes % (Manual) Nucleated RBC % Seg Neutrophils # Man Lymphocytes # (Manual) Monocytes # (Manual) ABG pH POC ABG pCO2 POC ABG pO2 ABG pO2 ABG HCO3 ABG O2 Saturation ABG Base Excess ABG Hemoglobin ABG Oxyhemoglobin ABG Potassium ABG Chloride ABG Glucose Carboxyhemoglobin Sodium Potassium 3.0 L Chloride 111.8 H Carbon Dioxide BUN 24 H Creatinine 0.3 L Glucose 141 H POC Glucose 127 H 156 H Lactic Acid Calcium 5.8 L* Magnesium 1.60 L Total Creatine Kinase Troponin T Total Protein Albumin Triglycerides LDL Cholesterol Direct HDL Cholesterol Arterial Blood Glucose Arterial Blood Ionized Calcium Urine pH Urine WBC (Auto) Vancomycin Trough Salicylates Acetaminophen Crossmatch 11/03/20 11/03/20 11/04/20 11:14 17:31 00:17 WBC RBC Hgb Hct MCV MCHC RDW Plt Count Seg Neuts % (Manual) Lymphocytes % (Manual) Nucleated RBC % Seg Neutrophils # Man Lymphocytes # (Manual) Monocytes # (Manual) ABG pH POC ABG pCO2 POC ABG pO2 ABG pO2 ABG HCO3 ABG O2 Saturation ABG Base Excess ABG Hemoglobin ABG Oxyhemoglobin ABG Potassium ABG Chloride ABG Glucose Carboxyhemoglobin Sodium Potassium Chloride Carbon Dioxide BUN Creatinine Glucose POC Glucose 137 H 151 H 156 H Lactic Acid Calcium Magnesium Total Creatine Kinase Troponin T Total Protein Albumin Triglycerides LDL Cholesterol Direct HDL Cholesterol Arterial Blood Glucose Arterial Blood Ionized Calcium Urine pH Urine WBC (Auto) Vancomycin Trough Salicylates Acetaminophen Crossmatch 11/04/20 11/04/20 05:34 05:34 WBC 21.9 H RBC 2.67 L Hgb 8.2 L Hct 24.8 L MCV MCHC RDW 15.6 H Plt Count 48 L Seg Neuts % (Manual) Lymphocytes % (Manual) Nucleated RBC % Seg Neutrophils # Man Lymphocytes # (Manual) Monocytes # (Manual) ABG pH POC ABG pCO2 POC ABG pO2 ABG pO2 ABG HCO3 ABG O2 Saturation ABG Base Excess ABG Hemoglobin ABG Oxyhemoglobin ABG Potassium ABG Chloride ABG Glucose Carboxyhemoglobin Sodium 146 H Potassium Chloride 114.6 H Carbon Dioxide BUN 29 H Creatinine 0.3 L Glucose 173 H POC Glucose Lactic Acid Calcium 5.7 L* Magnesium Total Creatine Kinase Troponin T Total Protein Albumin Triglycerides LDL Cholesterol Direct HDL Cholesterol Arterial Blood Glucose Arterial Blood Ionized Calcium Urine pH Urine WBC (Auto) Vancomycin Trough Salicylates Acetaminophen Crossmatch Allied health notes reviewed: nursing
--- NOTE | 2020-11-04 11:33 | Progress Note ---
Assessment and Plan The pt is a 75-year-old male senior care resident with a past medical history of seizure disorder, hypertension, depression, hyperlipidemia, chronic encephalopathy. He is intubated and sedated on evaluation and thus HPI is obtained per the chart. Pt was sent to the hospital for evaluation of AMS. Following arrival, pt diagnosed with necrotic sacral ulcer, sepsis with septic shock requiring vasopressor support, UTI, bilateral PNA with acute respiratory failure requiring intubation, COVID-19 testing negative, anemia, FAZAL. Pt was reported to have SVT prehospital for which he received IV adenosine and cardiology was consulted. tte reviewed - EF 55-60%, no significant abnormalities. Pt remains on Amiodarone Drip for arrhythmia suppression. Pt is intubated, awake responding appropriately to commands. Tele reviewed: SR 94 with freq PACs. No events overnight Continue Amiodarone drip for arrhythmia suppression and HR optimization. Wean vasopressors as tolerated. No systemic AC at this time in regards to Paroxismal AFib in setting of anemia requiring PRBC tx, thrombocytopenia and sacral ulcer (pt is s/p debulking debridement but not a candidate at this time for more aggressive debridement given clinical instability and malnutrition per general surgery). 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 Heparin has been discontinued. Management per primary team. Cont supportive management. The patient has been seen in conjunction with Dr. Lyndon Baldwin who agrees with the assessment and plan of care. - Patient Problems (1) AMS (altered mental status) Current Visit: Yes Status: Acute (2) Atrial fibrillation with RVR Current Visit: Yes Status: Acute Currently in SR with PJCs. No AC in setting of anemia. (3) Acute respiratory failure Current Visit: Yes Status: Acute (4) Bilateral pneumonia Current Visit: Yes Status: Acute (5) Sepsis Current Visit: Yes Status: Acute (6) Sepsis associated hypotension Current Visit: Yes Status: Acute Pt is requiring Levophed titration to maintain pressure (7) Sacral decubitus ulcer, stage IV Current Visit: Yes Status: Acute (8) UTI (urinary tract infection) Current Visit: Yes Status: Acute (9) FAZAL (acute kidney injury) Current Visit: Yes Status: Acute (10) Hypomagnesemia Current Visit: Yes Status: Acute (11) Anemia Current Visit: Yes Status: Acute (12) Thrombocytopenia Current Visit: Yes Status: Acute Subjective Date of service: 11/04/20 Principal diagnosis: Acute Resp Fail, Septic Shock, Sacral Ulcer, AF with RVR Interval history: Pt is intubated, awake responding appropriately to commands. Tele reviewed: SR 94 with [facility] PACs. No events overnight Objective Last Vital Signs Temp 97.1 F L 11/04/20 08:00 Pulse 92 H 11/04/20 11:15 Resp 26 H 11/04/20 11:15 BP 106/47 11/04/20 11:15 Pulse Ox 98 11/04/20 11:15 - Physical Examination General: Other (intubated, sedated) HEENT: Positive: Normocephaly Neck: Positive: neck supple, trachea midline Cardiac: Positive: Reg Rate and Rhythm, S1/S2 Lungs: Positive: clear to auscultation, Ventilated Respirations Neuro: Positive: Other (intubated, sedated) Abdomen: Positive: Soft Skin: Positive: Wound. Negative: Rash Musculoskeletal: No Pain Extremities: Present: upper extr. pulses, lower extr. pulses, edema, Other (chronic skin changes noted) - Labs and Meds CBC 11/04/20 Range/Units 05:34 WBC 21.9 H (4.5-11.0) K/mm3 RBC 2.67 L (3.65-5.03) M/mm3 Hgb 8.2 L (11.8-15.2) gm/dl Hct 24.8 L (35.5-45.6) % Plt Count 48 L (140-440) K/mm3 Comprehensive Metabolic Panel 11/04/20 Range/Units 05:34 Sodium 146 H (137-145) mmol/L Potassium 3.6 (3.6-5.0) mmol/L Chloride 114.6 H (98-107) mmol/L Carbon Dioxide 24 (22-30) mmol/L BUN 29 H (9-20) mg/dL Creatinine 0.3 L (0.8-1.3) mg/dL Glucose 173 H (75-100) mg/dL Calcium 5.7 L* (8.4-10.2) mg/dL - Imaging and Cardiology EKG: report reviewed, image reviewed Echo: report reviewed (10/28/2020- EF 55-60%, no significant valvular abnormalities) - Telemetry EKG Rhythm: Sinus Rhythm - Allied health notes Allied health notes reviewed: nursing
[2020-11-04] MEDS ORDERED: MAGNESIUM SULFATE 2 GM/50 ML BAG IV NR (11:49)
[2020-11-04] MEDS ORDERED: POTASSIUM CHLORIDE 20 MEQ PACKET FEEDTUBE NR (12:40)
[2020-11-04] MEDS: POTASSIUM CHLORIDE 20 MEQ 20 MEQ/100 ML BAG IV SCH ×2 (13:04→14:35)
[2020-11-04] MEDS: cefTRIAXone/NS 2 GM/100 ML 2 GM/100 ML BAG IV SCH (13:05)
[2020-11-04] MEDS: NORepinephrine/NS 4 MG-250 ML 4 MG/250 ML BAG IV SCH (15:00)
--- NOTE | 2020-11-04 16:47 | Progress Note ---
Assessment and Plan Assessment and plan: -ID, cardiology, CCM, surgery, vascular surgery, WOCN consulted, appreciate recommendations -FAZAL, pneumonia, infected sacral wound, acute respiratory failure, leukocytosis, hypotension requiring vasopressor support -Antibiotic therapy -Trend CBC -10/26 tracheal aspirate with MRSA, 10/26 blood cultures x2 with Proteus mirabilis, 10/27 urine culture possible contaminant -VAP bundle -Wound care per nursing -Nephrology consulted, appreciate recommendations -Trend BMP -Strict intake and output -Daily weights -Repeat calcium -S/p IVF resuscitation -Trend lactic acid -HIT panel pending -Amiodarone for rate control GI/DVT prophylaxis: No chemical anticoagulation r/t thrombocytopenia, SCDs to bilateral legs while in bed, PPI Dispo: ICU The high probability of a clinically significant, sudden or life threatening deterioration of the [multi] system(s) required my full and direct attention, intervention and personal management. The aggregate critical care time was [35] minutes. This time is in addition to time spent performing reported procedures but includes the following: [x] Data Review and interpretation [x] Patient assessment and monitoring of vital signs [x] Documentation [x] Medication orders and management History Interval history: This is a 75-year-old male who is a [facility] resident with seizure disorder, hypertension, depression, hyperlipidemia, hypoglycemia, dysphagia, and encephalopathy who presents to the emergency department on 10/26 via EMS for tachypnea, dry mucous membranes and hypoxia. Patient was hypotensive, febrile t o 103 degrees and hypoxic in the emergency department therefore he was intubated and central IV access was obtained. Patient received 3.5 L of IV fluid in the emergency department. Patient was admitted to the hospital service with consults to CCM, surgery, WOCN and ID for Sepsis, acute kidney injury, urinary tract infection, acute respiratory failure, electrolyte imbalances, infected sacral wound and bilateral pneumonia. Sepsis Acute respiratory failure Infected sacral wound s/p debridement with surgery Anemia s/p 2 units prbc Proteus bacteremia MRSA pneumonia Urine tract infection Acute kidney injury Leukocytosis Hypokalemia Hypocalcemia Hypomagnesemia Lactic acidosis 10/27: Patient received additional 4 L LR for fluid resuscitation and CV monitoring was initiated. Patient is on Levophed. ID added Flagyl to vancomycin and cefepime. His trach aspirate grew staph coccus aureus. At the time my examination patient the fentanyl drip was held by RN and he was on 14 MCG of Levophed. This morning he was on assist control 450/20/6/.100. We will give additional bolus of fluids with goal CVP 10-12 and repeat labs in AM. Surgery was consulted to possible debridement. 10/28: Overnight it was noted that patient went into SVT and he was given adenosine 6 mg/12 mg / 12 mg once and was started on a Cardizem drip after no response to amnio bolus and cardiology was consulted. Currently patient remains on Levophed drip and is hypotensive and received additional 2 L of bolus for goal CVP of 10-12. Infectious disease changed cefepime/Flagyl to meropenem for GNR in his blood cultures 09/04 and will continue vancomycin. Patient currently was not well controlled on max Cardizem and cardiology initiated amiodarone. Patient still is very tachycardic. Patient is hypomagnesemic and we will replete his Mg and recheck level. We will give the patient additional to complete resolve LR this afternoon. Patient has a standing order per [facility] to bolus the patient with LR for CVP goal of 10-12. This morning he is hyperchlormeic, metabolic acidotic (bicarb drip initiated) and his BUN/creatin ine slightly elevated. Patient still remains lactic acidotic. 10/29: Patient's blood culture speciated to Proteus and his tracheal aspirate is MRSA. He is currently on ceftriaxone, Flagyl and vancomycin. Patient heart rate consistently is 110-150s and cardiology has given him an amiodarone bolus today and he remains on amiodarone drip. He looks much started on IV digoxin. This morning 4 L LR bolus was ordered and we will bolus an additional 4 L of LR this afternoon. Patient still has lactic acidosis, metabolic acidosis, leukocytosis and hyperchloremia. On examination this morning patient is more edematous and he remains on Levophed and amnio drip. 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 Remains on amio, levo and sedated with fentanyl. He is hypokalemic today which was repleted, h/h 02/18 and he is being type and crossed today with 2 units PRBC ordered to be transfused. Plt drop noted, heparin discontinued and HIT ordered. Bicarb gtt discontinued. No acute events overnight. 10/31: Patient hypomagnesemia today which was repleted and cardiology has changed his IV amiodarone to p.o. Patient will get albumin per [facility]. At the time my examination patient is on assist control 450/20/6/0.40. 11/03: At the time my examination patient is on assist control 450/20/6/0.25 and sedated with fentanyl and on Levophed at 4.Patient's leukocytosis is improving he received Albumin this weekend. Patient is hypokalemic, hypomagnesemic, hypocalcemic today. We will repeat his electrolytes and recheck a BMP in the a.m. Patient received 2 units PRBC on 10/30 and his hemoglobin has been trending down. We will recheck in the a.m. 11/04: At the time of my examination patient was on Levophed 3 mcg and on VZV/CPAP 450/20/6/0.35. Patient still has leukocytosis, respiratory alkalosis, hyponatremia, hypochloremia, hypocalcemia. Today his magnesium and potassium r epleted with bolus of potassium 4/magnesium 2. He received 60 mcg KCl p.o., 40 mEq of KCl IV and 2 g of magnesium sulfate. We will recheck BMP and mag and a.m. Surgery has deemed the patient to unstable for further debulking. We also consulted vascular surgery for PVD as patient has discoloration to BLE /feet. Hospitalist Physical - Constitutional Vitals: Temp Pulse Resp BP Pulse Ox 99.3 F 94 H 34 H 115/49 97 11/04/20 16:00 11/04/20 15:30 11/04/20 15:30 11/04/20 15:30 11/04/20 15:30 General appearance: Present: no acute distress, well-nourished - EENT Eyes: Present: PERRL, EOM intact ENT: hearing intact, poor dentition - Neck Neck: Present: normal ROM - Respiratory Respiratory effort: normal Respiratory: bilateral: CTA, diminished - Cardiovascular Rhythm: regular Heart Sounds: Present: S1 & S2. Absent: systolic murmur, diastolic murmur - Extremities Extremities: no ischemia, pulses intact, pulses symmetrical, normal temperature Extremity abnormal: other (discoloration to BLE/feet) HEART Score - HEART Score EKG: Non-specific Age: > 65 Risk factors: > 3 risk factors or hx of atherosclerotic disease Troponin: Troponin T 0.062 ng/mL (0.00-0.029) H 10/26/20 17:25 Troponin: < normal limit - Critical Actions Critical Actions: 4-6 pts:12-16.6% risk of adverse cardiac event. Should be admitted Results - Labs CBC & Chem 7: 11/04/20 05:34 11/04/20 05:34 Labs: Laboratory Last Values WBC 21.9 K/mm3 (4.5-11.0) H 11/04/20 05:34 RBC 2.67 M/mm3 (3.65-5.03) L 11/04/20 05:34 Hgb 8.2 gm/dl (11.8-15.2) L 11/04/20 05:34 Hct 24.8 % (35.5-45.6) L 11/04/20 05:34 MCV 93 fl (84-94) 11/04/20 05:34 MCH 31 pg (28-32) 11/04/20 05:34 MCHC 33 % (32-34) 11/04/20 05:34 RDW 15.6 % (13.2-15.2) H 11/04/20 05:34 Plt Count 48 K/mm3 (140-440) L 11/04/20 05:34 Add Manual Diff Complete 11/02/20 08:40 Total Counted 100 11/02/20 08:40 Seg Neutrophils % Seat Maker 11/02/20 08:40 Seg Neuts % (Manual) 97.0 % (40.0-70.0) H 11/02/20 08:40 Band Neutrophils % 17.0 % 10/27/20 03:30 Lymphocytes % (Manual) 2.0 % (13.4-35.0) L 11/02/20 08:40 Monocytes % (Manual) 1.0 % (0.0-7.3) 11/02/20 08:40 Eosinophils % (Manual) 2.0 % (0.0-4.3) 10/27/20 03:30 Metamyelocytes % 4.0 % 10/27/20 03:30 Nucleated RBC % 1.0 % (0.0-0.9) H 11/02/20 08:40 Seg Neutrophils # Man 16.1 K/mm3 (1.8-7.7) H 11/02/20 08:40 Band Neutrophils # 0.0 K/mm3 11/02/20 08:40 Lymphocytes # (Manual) 0.3 K/mm3 (1.2-5.4) L 11/02/20 08:40 Abs React Lymphs (Man) 0.0 K/mm3 11/02/20 08:40 Monocytes # (Manual) 0.2 K/mm3 (0.0-0.8) 11/02/20 08:40 Eosinophils # (Manual) 0.0 K/mm3 (0.0-0.4) 11/02/20 08:40 Basophils # (Manual) 0.0 K/mm3 (0.0-0.1) 11/02/20 08:40 Metamyelocytes # 0.0 K/mm3 11/02/20 08:40 Myelocytes # 0.0 K/mm3 11/02/20 08:40 Promyelocytes # 0.0 K/mm3 11/02/20 08:40 Blast Cells # 0.0 K/mm3 11/02/20 08:40 WBC Morphology Not Reportable 11/02/20 08:40 Hypersegmented Neuts Not Reportable 11/02/20 08:40 Hyposegmented Neuts Not Reportable 11/02/20 08:40 Hypogranular Neuts Not Reportable 11/02/20 08:40 Smudge Cells Not Reportable 11/02/20 08:40 Toxic Granulation Not Reportable 11/02/20 08:40 Toxic Vacuolation Not Reportable 11/02/20 08:40 Dohle Bodies Not Reportable 11/02/20 08:40 Pelger-Huet Anomaly Not Reportable 11/02/20 08:40 Kassi Rods Not Reportable 11/02/20 08:40 Platelet Estimate Consistent w auto 11/02/20 08:40 Clumped Platelets Not Reportable 11/02/20 08:40 Plt Clumps, EDTA Not Reportable 11/02/20 08:40 Large Platelets Not Reportable 11/02/20 08:40 Giant Platelets Not Reportable 11/02/20 08:40 Platelet Satelliting Not Reportable 11/02/20 08:40 Plt Morphology Comment Not Reportable 11/02/20 08:40 RBC Morphology Normal 11/02/20 08:40 Dimorphic RBCs Not Reportable 11/02/20 08:40 Polychromasia Not Reportable 11/02/20 08:40 Hypochromasia Not Reportable 11/02/20 08:40 Poikilocytosis Not Reportable 11/02/20 08:40 Anisocytosis Not Reportable 11/02/20 08:40 Microcytosis Not Reportable 11/02/20 08:40 Macrocytosis Not Reportable 11/02/20 08:40 Spherocytes Not Reportable 11/02/20 08:40 Pappenheimer Bodies Not Reportable 11/02/20 08:40 Sickle Cells Not Reportable 11/02/20 08:40 Target Cells Not Reportable 11/02/20 08:40 Tear Drop Cells Not Reportable 11/02/20 08:40 Ovalocytes Not Reportable 11/02/20 08:40 Helmet Cells Not Reportable 11/02/20 08:40 [place] Bodies Not Reportable 11/02/20 08:40 Weston Rings Not Reportable 11/02/20 08:40 Gilberts Cells Not Reportable 11/02/20 08:40 Bite Cells Not Reportable 11/02/20 08:40 Crenated Cell Not Reportable 11/02/20 08:40 Elliptocytes Not Reportable 11/02/20 08:40 Acanthocytes (Spur) Not Reportable 11/02/20 08:40 Rouleaux Not Reportable 11/02/20 08:40 Hemoglobin C Crystals Not Reportable 11/02/20 08:40 Schistocytes Not Reportable 11/02/20 08:40 Malaria parasites Not Reportable 11/02/20 08:40 Richard Bodies Not Reportable 11/02/20 08:40 Hem Pathologist Commnt No 11/02/20 08:40 APTT 27.9 Sec. (24.2-36.6) 10/26/20 17:25 ABG pH 7.525 (7.320-7.450) H 11/04/20 11:42 POC ABG pCO2 28.9 mmHg (32.0-48.0) L 11/04/20 11:42 ABG pCO2 35.7 mm Hg 11/02/20 04:30 POC ABG pO2 64.3 mmHg (83-108) L 11/04/20 11:42 ABG pO2 88.3 mm Hg (80.0-90.0) 11/02/20 04:30 POC ABG HCO3 23.3 11/04/20 11:42 ABG HCO3 24.6 mmol/L (20.0-26.0) 11/02/20 04:30 ABG O2 Saturation 95 (0-100) 11/04/20 11:42 ABG O2 Content 12.4 (0.0-44) 11/02/20 04:30 POC ABG Base Excess 0.9 11/04/20 11:42 ABG Base Excess 0.8 mmol/L (-2.0-3.0) 11/02/20 04:30 ABG Hemoglobin 8.2 (12.0-17.5) L 11/04/20 11:42 ABG Oxyhemoglobin 94 (94-98) 11/04/20 11:42 ABG Carboxyhemoglobin 1.4 % (0.0-5.0) 11/02/20 04:30 ABG Methemoglobin 0.1 (0.0-1.5) 11/04/20 11:42 ABG Sodium 142.4 mmol/L (136.0-145.0) 11/04/20 11:42 ABG Potassium 3.3 mmol/L (3.40-4.50) L 11/04/20 11:42 ABG Chloride 115.0 mmol/L (98-107) H 11/04/20 11:42 ABG Glucose 165 mg/dL (65-95) H 11/04/20 11:42 Oxyhemoglobin 95.3 % (95.0-99.0) 11/02/20 04:30 Carboxyhemoglobin 1 (0.5-1.5) 11/04/20 11:42 FiO2 35 % 11/02/20 04:30 FiO2 % 35 11/04/20 11:42 Sodium 146 mmol/L (137-145) H 11/04/20 05:34 Potassium 3.6 mmol/L (3.6-5.0) 11/04/20 05:34 Chloride 114.6 mmol/L (98-107) H 11/04/20 05:34 Carbon Dioxide 24 mmol/L (22-30) 11/04/20 05:34 Anion Gap 11 mmol/L 11/04/20 05:34 BUN 29 mg/dL (9-20) H 11/04/20 05:34 Creatinine 0.3 mg/dL (0.8-1.3) L 11/04/20 05:34 Estimated GFR > 60 ml/min 11/04/20 05:34 BUN/Creatinine Ratio 97 % 11/04/20 05:34 Glucose 173 mg/dL (75-100) H 11/04/20 05:34 POC Glucose 156 mg/dL (70-105) H 11/04/20 11:16 Hemoglobin A1c 5.5 % (4-6) 10/27/20 04:42 Lactic Acid 4.30 mmol/L (0.7-2.0) H* 10/31/20 Unknown Calcium 5.7 mg/dL (8.4-10.2) L* 11/04/20 05:34 Phosphorus 2.80 mg/dL (2.5-4.5) 10/28/20 00:40 Magnesium 1.80 mg/dL (1.7-2.3) 11/04/20 05:34 Total Bilirubin 0.20 mg/dL (0.1-1.2) 10/29/20 05:15 AST 14 units/L (5-40) 10/29/20 05:15 ALT 12 units/L (7-56) 10/29/20 05:15 Alkaline Phosphatase 98 units/L (35-129) 10/29/20 05:15 Total Creatine Kinase 31 units/L (55-170) L 10/26/20 17:28 Troponin T 0.062 ng/mL (0.00-0.029) H 10/26/20 17:25 Total Protein 6.0 g/dL (6.3-8.2) L 10/29/20 05:15 Albumin 1.0 g/dL (3.9-5) L 10/29/20 05:15 Albumin/Globulin Ratio 0.2 % 10/29/20 05:15 Triglycerides 190 mg/dL (2-149) H 10/26/20 17:25 Cholesterol 92 mg/dL (50-199) 10/26/20 17:25 LDL Cholesterol Direct 33 mg/dL (50-130) L 10/26/20 17:25 HDL Cholesterol 18 mg/dL (40-59) L 10/26/20 17:25 Cholesterol/HDL Ratio 5.11 % 10/26/20 17:25 TSH 1.490 mlU/mL (0.270-4.200) 10/26/20 17:28 Arterial Blood Glucose 165 mg/dL (65-95) H 11/04/20 11:42 Arterial Blood Ionized Calcium 4.0 mg/dL (4.6-5.3) L 11/04/20 11:42 Urine Color Yellow (Yellow) 10/27/20 Unknown Urine Turbidity Turbid (Clear) 10/27/20 Unknown Urine pH 8.0 (5.0-7.0) H 10/27/20 Unknown Ur Specific [place] 1.020 (1.003-1.030) 10/27/20 Unknown Urine Protein >500 mg/dL (Negative) 10/27/20 Unknown Urine Glucose (UA) Neg mg/dL (Negative) 10/27/20 Unknown Urine Ketones Neg mg/dL (Negative) 10/27/20 Unknown Urine Blood Sm (Negative) 10/27/20 Unknown Urine Nitrite Neg (Negative) 10/27/20 Unknown Urine Bilirubin Neg (Negative) 10/27/20 Unknown Urine Urobilinogen < 2.0 mg/dL (<2.0) 10/27/20 Unknown Ur Leukocyte Esterase Mod (Negative) 10/27/20 Unknown Urine WBC (Auto) > 182.0 /HPF (0.0-6.0) H 10/27/20 Unknown Urine RBC (Auto) 35.0 /HPF (0.0-6.0) 10/27/20 Unknown Urine WBC Clumps 3+ /HPF 10/27/20 Unknown Urine Mucus 3+ /HPF 10/27/20 Unknown Urine Yeast (Budding) 3+ /HPF 10/27/20 Unknown Vancomycin Trough 22.0 ug/mL (5.0-20.0) H 10/30/20 Unknown Salicylates < 0.3 mg/dL (2.8-20.0) L 10/26/20 17:28 Acetaminophen 5.0 ug/mL (10.0-30.0) L 10/26/20 17:28 Coronavirus (PCR) Negative (Negative) 10/27/20 Unknown Blood Type O POSITIVE 10/30/20 09:30 Antibody Screen Negative 10/30/20 09:30 Crossmatch See Detail 10/30/20 09:30 Rivas/IV: Voiding Method Indwelling Catheter Active Medications - Current Medications Current Medications: Generic Name Dose Route Start Last Admin Trade Name Freq PRN Reason Stop Dose Admin Acetaminophen 650 mg 10/26/20 22:22 11/01/20 02:21 Acetaminophen 325 Mg Tab PO 650 mg Q4H PRN Administration Pain MILD(1-3)/Fever >100.5/TIERNEY Amiodarone HCl 200 mg 10/31/20 12:00 11/04/20 10:04 Amiodarone 200 Mg Tab PO 200 mg BID MARSHALL Administration Lipase/Protease/Amylase 1 each 10/28/20 13:18 Lipase 10,500/Protease 25,000/Amylase 43,750 (Units) Dr Cap FEEDTUBE PRN PRN For Clogged Feeding Tube Famotidine 20 mg 10/28/20 10:00 11/04/20 10:04 Famotidine 20 Mg/2 Ml Inj IV 20 mg BID MARSHALL Administration Fentanyl 50 mcg 10/26/20 17:25 Fentanyl 100 Mcg/2 Ml Inj IV Q10MIN PRN ANALGESIA Fentanyl 50 mcg 10/27/20 10:39 11/03/20 18:31 Fentanyl 100 Mcg/2 Ml Inj IV 50 mcg Q2H PRN Administration Pain , Severe (7-10) Hydrophilic Ointment 1 applic 10/26/20 17:25 Lip Therapy Vaseline TP Q2HR PRN Dry Lips Fentanyl Citrate 2,000 mcg in 100 mls @ 4.165 mls/hr 10/26/20 18:00 11/03/20 16:57 Fentanyl Drip Premix IV 0 mcg/kg/hr TITR MARSHALL 0 mls/hr Titration Protocol 1 MCG/KG/HR Norepinephrine 4 mg in 250 mls @ 112.5 mls/hr 10/28/20 01:00 11/04/20 13:05 Levophed Drip 4 Mg/Ns 250 Ml IV 2 mcg/min TITR MARSHALL 7.5 mls/hr Titration Protocol 30 MCG/MIN Vasopressin 20 unit/ Sodium 101 mls @ 9.09 mls/hr 10/28/20 16:00 Chloride IV TITR MARSHALL Protocol 0.03 UNITS/MIN Ceftriaxone Sodium 2 gm in 100 mls @ 200 mls/hr 10/29/20 13:00 11/04/20 14:34 Rocephin/Ns 2 Gm/100 Ml IV 11/12/20 13:29 Infused Q24H MARSHALL Infusion Protocol Metronidazole 500 mg in 100 mls @ 100 mls/hr 10/29/20 14:00 11/04/20 14:33 Flagyl 500 Mg/100 Ml IV 11/12/20 14:59 Infused Q8H MARSHALL Infusion Protocol Multi-Ingred Cream/Lotion/Oil/Oint 1 applic 10/26/20 17:25 Mineral Oil/Petrolatum, White Ophth Oint 3.5 Gm OU Q4HR PRN Dry Eye(s) Ondansetron HCl 4 mg 10/26/20 22:22 Ondansetron 4 Mg/2 Ml Inj IV Q8H PRN Nausea And Vomiting Simple Syrup 15 ml 10/28/20 13:18 Simple Syrup 15 Ml FEEDTUBE PRN PRN Hypoglycemia Simple Syrup 30 ml 10/28/20 13:18 Simple Syrup 15 Ml FEEDTUBE PRN PRN Hypoglycemia Sodium Bicarbonate 325 mg 10/28/20 13:18 Sodium Bicarbonate 325 Mg Tab FEEDTUBE PRN PRN For Clogged Feeding Tube Sodium Chloride 5 ml 10/26/20 17:25 Sodium Chloride 0.9% 500 Ml Ivpb IV DIRECT PRN [employer]SULTANT Sodium Chloride 10 ml 10/27/20 10:00 11/04/20 10:05 Sodium Chloride 0.9% 10 Ml Flush Syringe IV 10 ml BID MARSHALL Administration Sodium Chloride 10 ml 10/26/20 22:22 Sodium Chloride 0.9% 10 Ml Flush Syringe IV PRN PRN LINE FLUSH Sodium Hypochlorite 1 applic 10/28/20 10:00 11/04/20 10:06 Sodium Hypochlorite, Dakin's 1/2 Strength (0.25%) 473 Ml Topical Soln TP 1 applicatio BID MARSHALL Administration Nutrition/Malnutrition Assess - Dietary Evaluation Nutrition/Malnutrition Findings: Nutrition Notes Start: 10/27/20 09:15 Freq: Status: Active Protocol: Document 11/03/20 11:39 CW (Rec: 11/03/20 11:57 CW [id number]) Nutrition Notes Initial or Follow up Reassessment Current Diagnosis Acute Kidney Injury,Decubitus( Pressure Ulcer),Sepsis, Hypertension,Respiratory Failure,Hyperlipidemia Other Pertinent Diagnosis AMS, MRSA, Encephalopathy, Metabiloc Acidosis, pneu ,FTT Current Diet Vital HP at 80 ml/hr Labs/Tests K 3 BUN 24 BG 141 Pertinent Medications KCl 20 mEq/100ml Levophed KCl 40 Meq Flagyl Height 6 ft 2 in Weight 121.2 kg [place] Body Weight (kg) 86.36 BMI 34.2 Weight change and time frame Weight increase likely d/t 2+ pitting edema Weight Status Obese Subjective/Other Information F/U for TF at goal and vent status. Pt remains on mechanical vent. TF of Vital HP is running at goal of 80 ml /hr and is being well tolerated. Percent of energy/protein needs met: 100%/100% Burn Absent Trauma Absent Difficulty In Swallowing,Chewing Skin Integrity/Comment Multiple pressure ulcer,1 infected Current % PO Negligible Minimum of two criteria No Fluid Accumulation Moderate to Severe (severe) #1 Nutrition Diagnosis Inadequate oral intake Diagnosis Progress(for reassessment Continues documentation) Is patient on ventilator? Yes Is Patient Ambulatory and/or Out of Bed No REE-([place]-confined to bed) 2419.944 Kcal/Kg value to use for calculation 15 Approximate Energy Requirements Using 1818 kcal/Kg Calculation Used for Recommendations Kcal/kg Additional Notes protein needs: >163g (>2g/kgBW ) Fluid needs 1 ml/kcal Nutrition Intervention Change Diet Order: Continue TF Nutrition Support: Vital HP at 80 ml/hr with a free water flush of 50 ml q4h Kcal 1,920 Protein (gm) 168 Fluid (mL) 1,605 Goal #1 TF tolerance Goal #2 wound healing Anticipated Discharge Needs: unable to determine at this time Follow-Up By: 11/05/20 Additional Comments TF Tolerance, Vent status
[2020-11-04] MEDS ORDERED: SODIUM CHLORIDE 0.9% 1000 ML 1,000 ML IV ONE (16:54)
[2020-11-04] MEDS: ACETAMINOPHEN 325 MG TAB PO PRN (21:43)
[2020-11-05] MEDS: fentaNYL 100 MCG/2 ML INJ IV PRN (00:37)
[2020-11-05] MEDS: metroNIDAZOLE/NS 500 MG/100 ML 500 MG/100 ML BAG IV SCH ×3 (05:20→22:44)
[2020-11-05 05:21] LABS: Hematocrit 23.5 % (35.5-45.6); Hemoglobin 7.8 gm/dl (11.8-15.2); Mean Corpuscular HGB Conc 33 % (32-34); Mean Corpuscular Volume 94 fl (84-94); Red Blood Count 2.49 M/mm3 (3.65-5.03)
[2020-11-05 05:34] LABS: Platelet Count 69 K/mm3 (140-440)
[2020-11-05 06:01] LABS: Blood Urea Nitrogen 34 mg/dL (9-20); Calcium 6.1 mg/dL (8.4-10.2); Hemolysis Index 10
[2020-11-05 06:06] LABS: BUN/Creatinine Ratio 113
[2020-11-05] MEDS ORDERED: MAGNESIUM SULFATE 2 GM/50 ML BAG IV SCH (09:00)
[2020-11-05] MEDS ORDERED: POTASSIUM PHOSPHATE 30 MMOL in SODIUM CHLORIDE 0.9% 500 ML 500 ML IV ONE (10:00)
[2020-11-05] MEDS: FAMOTIDINE 20 MG/2 ML INJ IV SCH ×2 (10:01→22:45)
[2020-11-05] MEDS: POTASSIUM CHLORIDE 20 MEQ PACKET FEEDTUBE SCH ×2 (10:01→14:42)
[2020-11-05] MEDS: AMIODARONE 200 MG TAB PO SCH ×2 (10:02→22:45)
--- NOTE | 2020-11-05 10:23 | Consultation ---
History of Present Illness - Reason for Consult Consult date: 11/12/20 Bilateral Lower Extremity Ischemia On Pressors Requesting physician: HALIE PIERCE - History of Present Illness The patient is a 75-year-old male who was a resident of a detention and was transported to the emergency room with mental status changes requiring intubation and pressor support. He was found to be septic from a sacral wound that eventually required excisional debridement. He has remained in the intensive care unit on the ventilator and on pressors however they have been slowly weaned down and he remains on 0.5 mg of Levophed. Since being on the pressors it was noted that the toes on bilateral feet have become discolored despite the weaning. Although the patient is intubated he is alert and upon asking he confirms, with a head nod, that he has pain in his feet. He also confirms that he had a history of pain prior to presenting to the hospital. I am unable to obtain much more history than this. Past History Past Medical History: other (unable to provide) Past Surgical History: Other (unable to provide) Social history: other (unable to provide) Family history: other (unable to provide) Medications and Allergies Allergies Allergy/AdvReac Type Severity Reaction Status Date / Time No Known Allergies Allergy Verified 01/10/19 02:20 Home Medications Medication Instructions Recorded Confirmed Last Taken Type Folic Acid [Folvite] 1 mg PO QDAY 01/10/19 11/02/20 Unknown History Primidone [Mysoline] 250 mg PO TID 01/10/19 11/02/20 Unknown History carBAMazepine [Carbamazepine] 200 mg PO TID 01/10/19 11/02/20 Unknown History Aspirin [Aspirin BABY CHEW TAB] 81 mg PO QDAY 08/15/20 11/02/20 Unknown History AtorvaSTATin [Lipitor] 40 mg PO QHS 08/15/20 11/02/20 Unknown History Citalopram Hydrobromide 20 mg PO QDAY 08/15/20 11/02/20 Unknown History [Citalopram HBr] Ergocalciferol [Vitamin D2] 1 cap PO QWEEK 08/15/20 11/02/20 Unknown History Folic Acid [Folvite] 1 mg PO QDAY 08/15/20 11/02/20 Unknown History Mirtazapine 7.5 mg PO QHS 08/15/20 11/02/20 Unknown History guaiFENesin ER [Mucinex ER] 600 mg PO Q12H 08/15/20 11/02/20 Unknown History Midodrine [Proamatine] 5 mg PO 0800,1200,1600 #90 tablet 09/02/20 11/02/20 Unknown Rx oxyCODONE /ACETAMINOPHEN [Percocet 1 tab PO Q6H PRN #14 tablet 09/02/20 11/02/20 Unknown Rx 5/325 mg] Active Meds: Active Medications Acetaminophen (Acetaminophen 325 Mg Tab) 650 mg PO Q4H PRN PRN Reason: Pain MILD(1-3)/Fever >100.5/TIERNEY Last Admin: 11/04/20 21:43 Dose: 650 mg Documented by: Amiodarone HCl (Amiodarone 200 Mg Tab) 200 mg PO BID [facility] Last Admin: 11/05/20 10:02 Dose: 200 mg Documented by: Lipase/Protease/Amylase (Lipase 10,500/Protease 25,000/Amylase 43,750 (Units) Dr Cap) 1 each FEEDTUBE PRN PRN PRN Reason: For Clogged Feeding Tube Famotidine (Famotidine 20 Mg/2 Ml Inj) 20 mg IV BID [facility] Last Admin: 11/05/20 10:01 Dose: 20 mg Documented by: Fentanyl (Fentanyl 100 Mcg/2 Ml Inj) 50 mcg IV Q10MIN PRN PRN Reason: ANALGESIA Last Admin: 11/04/20 18:12 Dose: 50 mcg Documented by: Fentanyl (Fentanyl 100 Mcg/2 Ml Inj) 50 mcg IV Q2H PRN PRN Reason: Pain , Severe (7-10) Last Admin: 11/05/20 00:37 Dose: 50 mcg Documented by: Hydrophilic Ointment (Lip Therapy Vaseline) 1 applic TP Q2HR PRN PRN Reason: Dry Lips Norepinephrine (Levophed Drip 4 Mg/Ns 250 Ml) 4 mg in 250 mls @ 112.5 mls/hr IV TITR [facility]; Protocol Last Titration: 11/05/20 03:21 Dose: 0.5 mcg/min, 1.875 mls/hr Documented by: Vasopressin 20 unit/ Sodium (Chloride) 101 mls @ 9.09 mls/hr IV TITR [facility]; Protocol Ceftriaxone Sodium (Rocephin/Ns 2 Gm/100 Ml) 2 gm in 100 mls @ 200 mls/hr IV Q24H [facility]; Protocol Stop: 11/12/20 13:29 Last Infusion: 11/04/20 14:34 Dose: Infused Documented by: Metronidazole (Flagyl 500 Mg/100 Ml) 500 mg in 100 mls @ 100 mls/hr IV Q8H [facility]; Protocol Stop: 11/12/20 14:59 Last Admin: 11/05/20 05:20 Dose: 100 mls/hr Documented by: Magnesium Sulfate (Magnesium Sulfate 2gm/50ml) 2 gm in 50 mls @ 25 mls/hr IV ONCE [facility] Stop: 11/05/20 11:30 Last Admin: 11/05/20 10:02 Dose: 25 mls/hr Documented by: Potassium Phosphate 30 mmol/ (Sodium Chloride) 510 mls @ 83 mls/hr IV ONCE ONE Stop: 11/05/20 16:08 Last Admin: 11/05/20 10:02 Dose: 83 mls/hr Documented by: Multi-Ingred Cream/Lotion/Oil/Oint (Mineral Oil/Petrolatum, White Ophth Oint 3.5 Gm) 1 applic OU Q4HR PRN PRN Reason: Dry Eye(s) Ondansetron HCl (Ondansetron 4 Mg/2 Ml Inj) 4 mg IV Q8H PRN PRN Reason: Nausea And Vomiting Potassium Chloride (Potassium Chloride 20 Meq Packet) 40 meq FEEDTUBE Q4H [facility] Stop: 11/05/20 14:01 Last Admin: 11/05/20 10:01 Dose: 40 meq Documented by: Simple Syrup (Simple Syrup 15 Ml) 15 ml FEEDTUBE PRN PRN PRN Reason: Hypoglycemia Simple Syrup (Simple Syrup 15 Ml) 30 ml FEEDTUBE PRN PRN PRN Reason: Hypoglycemia Sodium Bicarbonate (Sodium Bicarbonate 325 Mg Tab) 325 mg FEEDTUBE PRN PRN PRN Reason: For Clogged Feeding Tube Sodium Chloride (Sodium Chloride 0.9% 500 Ml Ivpb) 5 ml IV DIRECT PRN PRN Reason: ARTERIAL HAND WINDER Sodium Chloride (Sodium Chloride 0.9% 10 Ml Flush Syringe) 10 ml IV BID [facility] Last Admin: 11/04/20 21:41 Dose: 10 ml Documented by: Sodium Chloride (Sodium Chloride 0.9% 10 Ml Flush Syringe) 10 ml IV PRN PRN PRN Reason: LINE FLUSH Sodium Hypochlorite (Sodium Hypochlorite, Dakin's 1/2 Strength (0.25%) 473 Ml Topical Soln) 1 applic TP BID [facility] Last Admin: 11/04/20 21:41 Dose: 1 applicatio Documented by: Review of Systems ROS unobtainable: due to endotracheal tube Exam - Constitutional Vitals: Temp Pulse Resp BP Pulse Ox 98.6 F 91 H 29 H 93/40 99 11/05/20 07:25 11/05/20 09:00 11/05/20 09:00 11/05/20 09:00 11/05/20 09:00 General appearance: Present: no acute distress, other (intubated) - Respiratory Respiratory effort: other (Ventilator assisted) - Cardiovascular Rhythm: irregularly irregular - Extremities Extremities: pulses intact (Bilateral femoral pulses are thready but palpable), normal temperature (Bilateral feet are warm) Extremity abnormal: edema (Bilateral lower extremities), cyanosis (Cyanotic changes to all toes of bilateral feet), pulses diminished (Nonpalpable pedal pulses bilaterally), other (Dermatosclerosis bilaterally) - Abdominal General gastrointestinal: Present: soft, non-distended Male genitourinary: Present: scrotal edema (Scrotum is massively edematous) Results - Labs CBC & Chem 7: 11/05/20 04:48 11/05/20 04:48 Labs: Abnormal lab results 11/04/20 11/04/20 11/04/20 Range/Units 11:16 11:42 17:18 WBC (4.5-11.0) K/mm3 RBC (3.65-5.03) M/mm3 Hgb (11.8-15.2) gm/dl Hct (35.5-45.6) % RDW (13.2-15.2) % Plt Count (140-440) K/mm3 ABG pH 7.525 H (7.320-7.450) POC ABG pCO2 28.9 L (32.0-48.0) mmHg POC ABG pO2 64.3 L (83-108) mmHg ABG Hemoglobin 8.2 L (12.0-17.5) ABG Potassium 3.3 L (3.40-4.50) mmol/L ABG Chloride 115.0 H (98-107) mmol/L ABG Glucose 165 H (65-95) mg/dL Sodium (137-145) mmol/L Potassium (3.6-5.0) mmol/L Chloride (98-107) mmol/L BUN (9-20) mg/dL Creatinine (0.8-1.3) mg/dL Glucose (75-100) mg/dL POC Glucose 156 H 144 H (70-105) mg/dL Calcium (8.4-10.2) mg/dL Phosphorus (2.5-4.5) mg/dL Arterial Blood Glucose 165 H (65-95) mg/dL Arterial Blood Ionized Calcium 4.0 L (4.6-5.3) mg/dL 11/04/20 11/05/20 11/05/20 Range/Units 23:12 04:48 04:48 WBC 17.4 H (4.5-11.0) K/mm3 RBC 2.49 L (3.65-5.03) M/mm3 Hgb 7.8 L (11.8-15.2) gm/dl Hct 23.5 L (35.5-45.6) % RDW 16.0 H (13.2-15.2) % Plt Count 69 L (140-440) K/mm3 ABG pH (7.320-7.450) POC ABG pCO2 (32.0-48.0) mmHg POC ABG pO2 (83-108) mmHg ABG Hemoglobin (12.0-17.5) ABG Potassium (3.40-4.50) mmol/L ABG Chloride (98-107) mmol/L ABG Glucose (65-95) mg/dL Sodium 147 H (137-145) mmol/L Potassium 3.5 L (3.6-5.0) mmol/L Chloride 115.4 H (98-107) mmol/L BUN 34 H (9-20) mg/dL Creatinine 0.3 L (0.8-1.3) mg/dL Glucose 154 H (75-100) mg/dL POC Glucose 155 H (70-105) mg/dL Calcium 6.1 L (8.4-10.2) mg/dL Phosphorus 2.00 L (2.5-4.5) mg/dL Arterial Blood Glucose (65-95) mg/dL Arterial Blood Ionized Calcium (4.6-5.3) mg/dL 11/05/20 Range/Units 05:57 WBC (4.5-11.0) K/mm3 RBC (3.65-5.03) M/mm3 Hgb (11.8-15.2) gm/dl Hct (35.5-45.6) % RDW (13.2-15.2) % Plt Count (140-440) K/mm3 ABG pH (7.320-7.450) POC ABG pCO2 (32.0-48.0) mmHg POC ABG pO2 (83-108) mmHg ABG Hemoglobin (12.0-17.5) ABG Potassium (3.40-4.50) mmol/L ABG Chloride (98-107) mmol/L ABG Glucose (65-95) mg/dL Sodium (137-145) mmol/L Potassium (3.6-5.0) mmol/L Chloride (98-107) mmol/L BUN (9-20) mg/dL Creatinine (0.8-1.3) mg/dL Glucose (75-100) mg/dL POC Glucose 146 H (70-105) mg/dL Calcium (8.4-10.2) mg/dL Phosphorus (2.5-4.5) mg/dL Arterial Blood Glucose (65-95) mg/dL Arterial Blood Ionized Calcium (4.6-5.3) mg/dL Assessment and Plan The patient is a 75-year-old male who was admitted with sepsis secondary to a sacral wound. 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 He has been on pressors secondary to hypotension from his sepsis as well as atrial fibrillation. He remains on a minimal amount of Levophed. He developed discoloration of all of his toes since being on the p ressors. At this point the patient's discoloration is likely secondary to the prolonged pressures and hypotension as well as an overall low flow state from his atrial fibrillation. Would recommend weaning the pressures completely off. Review of his labs will suggest that he is severely dehydrated so would recommend adding free water to his tube feeds to assist with weaning the pressors completely off. We will order bilateral lower extremity arterial duplex to evaluate his arterial flow. At this time he would not be a candidate for revascularization given his overall condition. If he does have any area of thrombosis secondary to his low flow state and HIT, he will require anticoagulation with Argatroban.
[2020-11-05] MEDS: SODIUM HYPOCHLORITE, DAKIN'S 1/2 STRENGTH (0.25%) 473 ML TOPICAL SOLN TP SCH ×2 (10:36→22:44)
--- NOTE | 2020-11-05 10:53 | Progress Note ---
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 Count 34 L Seg Neuts % (Manual) Lymphocytes % (Manual) Nucleated RBC % Seg Neutrophils # Man Lymphocytes # (Manual) Monocytes # (Manual) ABG pH 7.456 H POC ABG pCO2 POC ABG pO2 ABG pO2 ABG HCO3 ABG O2 Saturation ABG Base Excess ABG Hemoglobin 9.2 L ABG Oxyhemoglobin ABG Potassium ABG Chloride ABG Glucose Carboxyhemoglobin Sodium Potassium Chloride Carbon Dioxide BUN Creatinine Glucose POC Glucose 168 H Lactic Acid Calcium Phosphorus Magnesium Total Creatine Kinase Troponin T Total Protein Albumin Triglycerides LDL Cholesterol Direct HDL Cholesterol Arterial Blood Glucose Arterial Blood Ionized Calcium Urine pH Urine WBC (Auto) Vancomycin Trough Salicylates Acetaminophen Crossmatch 11/02/20 11/02/20 11/02/20 06:29 08:40 08:40 WBC 16.6 H RBC 2.87 L Hgb 8.8 L Hct 26.6 L MCV MCHC RDW 15.8 H Plt Count 30 L Seg Neuts % (Manual) 97.0 H Lymphocytes % (Manual) 2.0 L Nucleated RBC % 1.0 H Seg Neutrophils # Man 16.1 H Lymphocytes # (Manual) 0.3 L Monocytes # (Manual) ABG pH POC ABG pCO2 POC ABG pO2 ABG pO2 ABG HCO3 ABG O2 Saturation ABG Base Excess ABG Hemoglobin ABG Oxyhemoglobin ABG Potassium ABG Chloride ABG Glucose Carboxyhemoglobin Sodium Potassium 2.4 L* D Chloride 110.2 H Carbon Dioxide BUN 23 H Creatinine 0.4 L Glucose 154 H POC Glucose 131 H Lactic Acid Calcium 6.1 L Phosphorus Magnesium 1.50 L Total Creatine Kinase Troponin T Total Protein Albumin Triglycerides LDL Cholesterol Direct HDL Cholesterol Arterial Blood Glucose Arterial Blood Ionized Calcium Urine pH Urine WBC (Auto) Vancomycin Trough Salicylates Acetaminophen Crossmatch 11/02/20 11/02/20 11/02/20 13:17 17:25 18:05 WBC RBC Hgb Hct MCV MCHC RDW Plt Count Seg Neuts % (Manual) Lymphocytes % (Manual) Nucleated RBC % Seg Neutrophils # Man Lymphocytes # (Manual) Monocytes # (Manual) ABG pH POC ABG pCO2 POC ABG pO2 ABG pO2 ABG HCO3 ABG O2 Saturation ABG Base Excess ABG Hemoglobin ABG Oxyhemoglobin ABG Potassium ABG Chloride ABG Glucose Carboxyhemoglobin Sodium Potassium 3.1 L D Chloride Carbon Dioxide BUN Creatinine Glucose POC Glucose 134 H 140 H Lactic Acid Calcium Phosphorus Magnesium Total Creatine Kinase Troponin T Total Protein Albumin Triglycerides LDL Cholesterol Direct HDL Cholesterol Arterial Blood Glucose Arterial Blood Ionized Calcium Urine pH Urine WBC (Auto) Vancomycin Trough Salicylates Acetaminophen Crossmatch 11/02/20 11/03/20 11/03/20 23:36 04:15 05:07 WBC RBC Hgb Hct MCV MCHC RDW Plt Count Seg Neuts % (Manual) Lymphocytes % (Manual) Nucleated RBC % Seg Neutrophils # Man Lymphocytes # (Manual) Monocytes # (Manual) ABG pH POC ABG pCO2 POC ABG pO2 ABG pO2 ABG HCO3 ABG O2 Saturation ABG Base Excess ABG Hemoglobin ABG Oxyhemoglobin ABG Potassium ABG Chloride ABG Glucose Carboxyhemoglobin Sodium Potassium 3.0 L Chloride 111.8 H Carbon Dioxide BUN 24 H Creatinine 0.3 L Glucose 141 H POC Glucose 127 H 156 H Lactic Acid Calcium 5.8 L* Phosphorus Magnesium 1.60 L Total Creatine Kinase Troponin T Total Protein Albumin Triglycerides LDL Cholesterol Direct HDL Cholesterol Arterial Blood Glucose Arterial Blood Ionized Calcium Urine pH Urine WBC (Auto) Vancomycin Trough Salicylates Acetaminophen Crossmatch 11/03/20 11/03/20 11/04/20 11:14 17:31 00:17 WBC RBC Hgb Hct MCV MCHC RDW Plt Count Seg Neuts % (Manual) Lymphocytes % (Manual) Nucleated RBC % Seg Neutrophils # Man Lymphocytes # (Manual) Monocytes # (Manual) ABG pH POC ABG pCO2 POC ABG pO2 ABG pO2 ABG HCO3 ABG O2 Saturation ABG Base Excess ABG Hemoglobin ABG Oxyhemoglobin ABG Potassium ABG Chloride ABG Glucose Carboxyhemoglobin Sodium Potassium Chloride Carbon Dioxide BUN Creatinine Glucose POC Glucose 137 H 151 H 156 H Lactic Acid Calcium Phosphorus Magnesium Total Creatine Kinase Troponin T Total Protein Albumin Triglycerides LDL Cholesterol Direct HDL Cholesterol Arterial Blood Glucose Arterial Blood Ionized Calcium Urine pH Urine WBC (Auto) Vancomycin Trough Salicylates Acetaminophen Crossmatch 11/04/20 11/04/20 11/04/20 05:34 05:34 11:16 WBC 21.9 H RBC 2.67 L Hgb 8.2 L Hct 24.8 L MCV MCHC RDW 15.6 H Plt Count 48 L Seg Neuts % (Manual) Lymphocytes % (Manual) Nucleated RBC % Seg Neutrophils # Man Lymphocytes # (Manual) Monocytes # (Manual) ABG pH POC ABG pCO2 POC ABG pO2 ABG pO2 ABG HCO3 ABG O2 Saturation ABG Base Excess ABG Hemoglobin ABG Oxyhemoglobin ABG Potassium ABG Chloride ABG Glucose Carboxyhemoglobin Sodium 146 H Potassium Chloride 114.6 H Carbon Dioxide BUN 29 H Creatinine 0.3 L Glucose 173 H POC Glucose 156 H Lactic Acid Calcium 5.7 L* Phosphorus Magnesium Total Creatine Kinase Troponin T Total Protein Albumin Triglycerides LDL Cholesterol Direct HDL Cholesterol Arterial Blood Glucose Arterial Blood Ionized Calcium Urine pH Urine WBC (Auto) Vancomycin Trough Salicylates Acetaminophen Crossmatch 11/04/20 11/04/20 11/04/20 11:42 17:18 23:12 WBC RBC Hgb Hct MCV MCHC RDW Plt Count Seg Neuts % (Manual) Lymphocytes % (Manual) Nucleated RBC % Seg Neutrophils # Man Lymphocytes # (Manual) Monocytes # (Manual) ABG pH 7.525 H POC ABG pCO2 28.9 L POC ABG pO2 64.3 L ABG pO2 ABG HCO3 ABG O2 Saturation ABG Base Excess ABG Hemoglobin 8.2 L ABG Oxyhemoglobin ABG Potassium 3.3 L ABG Chloride 115.0 H ABG Glucose 165 H Carboxyhemoglobin Sodium Potassium Chloride Carbon Dioxide BUN Creatinine Glucose POC Glucose 144 H 155 H Lactic Acid Calcium Phosphorus Magnesium Total Creatine Kinase Troponin T Total Protein Albumin Triglycerides LDL Cholesterol Direct HDL Cholesterol Arterial Blood Glucose 165 H Arterial Blood Ionized Calcium 4.0 L Urine pH Urine WBC (Auto) Vancomycin Trough Salicylates Acetaminophen Crossmatch 11/05/20 11/05/20 11/05/20 04:48 04:48 05:57 WBC 17.4 H RBC 2.49 L Hgb 7.8 L Hct 23.5 L MCV MCHC RDW 16.0 H Plt Count 69 L Seg Neuts % (Manual) Lymphocytes % (Manual) Nucleated RBC % Seg Neutrophils # Man Lymphocytes # (Manual) Monocytes # (Manual) ABG pH POC ABG pCO2 POC ABG pO2 ABG pO2 ABG HCO3 ABG O2 Saturation ABG Base Excess ABG Hemoglobin ABG Oxyhemoglobin ABG Potassium ABG Chloride ABG Glucose Carboxyhemoglobin Sodium 147 H Potassium 3.5 L Chloride 115.4 H Carbon Dioxide BUN 34 H Creatinine 0.3 L Glucose 154 H POC Glucose 146 H Lactic Acid Calcium 6.1 L Phosphorus 2.00 L Magnesium Total Creatine Kinase Troponin T Total Protein Albumin Triglycerides LDL Cholesterol Direct HDL Cholesterol Arterial Blood Glucose Arterial Blood Ionized Calcium Urine pH Urine WBC (Auto) Vancomycin Trough Salicylates Acetaminophen Crossmatch Allied health notes reviewed: nursing
[2020-11-05] MEDS ORDERED: MAGNESIUM SULFATE 1 GM in SODIUM CHLORIDE 0.9% 50 ML IV ONE (11:30)
--- NOTE | 2020-11-05 11:34 | Progress Note ---
Assessment and Plan Pt remains intubated, sedated. In SR. Cont PO amio. Wean vasopressors as tolerated. 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 Discoloration of toes noted. Per vascular consultation - wean pressors as tolerated and obtain BLE arterial studies, not currently a candidate for revascularization given his overall condition. If he does have any area of thrombosis secondary to his low flow state and HIT, he will require anticoagulation with Argatroban. Replete electrolytes PRN. F/u CMP and Mg in AM. Overall guarded prognosis. Cont supportive management. The patient has been seen in conjunction with Dr. Landa who agrees with the assessment and plan of care. - Patient Problems (1) AMS (altered mental status) Current Visit: Yes Status: Acute (2) Atrial fibrillation with RVR Current Visit: Yes Status: Acute Plan to address problem: --> SR (3) Acute respiratory failure Current Visit: Yes Status: Acute (4) Bilateral pneumonia Current Visit: Yes Status: Acute (5) Sepsis Current Visit: Yes Status: Acute (6) Sepsis associated hypotension Current Visit: Yes Status: Acute (7) Sacral decubitus ulcer, stage IV Current Visit: Yes Status: Acute (8) Bacteremia Current Visit: Yes Status: Acute (9) UTI (urinary tract infection) Current Visit: Yes Status: Acute (10) FAZAL (acute kidney injury) Current Visit: Yes Status: Acute (11) Hypomagnesemia Current Visit: Yes Status: Acute (12) Anemia Current Visit: Yes Status: Acute (13) Thrombocytopenia Current Visit: Yes Status: Acute (14) HIT (heparin-induced thrombocytopenia) Current Visit: Yes Status: Suspected Subjective Date of service: 11/05/20 Principal diagnosis: Acute Resp Fail, Septic Shock, Sacral Ulcer, AF with RVR Interval history: pt remains intubated. tele reviewed - in SR HR 90s. levophed gtt infusing. Objective Last Vital Signs Temp 98.6 F 11/05/20 07:25 Pulse 92 H 11/05/20 11:00 Resp 31 H 11/05/20 11:00 BP 102/47 11/05/20 11:00 Pulse Ox 98 11/05/20 11:00 - Physical Examination General: Other (intubated, sedated) HEENT: Positive: Normocephaly Neck: Positive: neck supple, trachea midline Cardiac: Positive: Reg Rate and Rhythm, S1/S2 Lungs: Positive: Decreased Breath Sounds, Oxygen, Ventilated Respirations Neuro: Positive: Other (intubated, sedated) Abdomen: Positive: Soft Skin: Positive: Wound. Negative: Rash Musculoskeletal: No Pain Extremities: Present: upper extr. pulses, lower extr. pulses, edema, Other (chronic skin changes noted) - Labs and Meds CBC 11/05/20 Range/Units 04:48 WBC 17.4 H (4.5-11.0) K/mm3 RBC 2.49 L (3.65-5.03) M/mm3 Hgb 7.8 L (11.8-15.2) gm/dl Hct 23.5 L (35.5-45.6) % Plt Count 69 L (140-440) K/mm3 Comprehensive Metabolic Panel 11/05/20 Range/Units 04:48 Sodium 147 H (137-145) mmol/L Potassium 3.5 L (3.6-5.0) mmol/L Chloride 115.4 H (98-107) mmol/L Carbon Dioxide 28 (22-30) mmol/L BUN 34 H (9-20) mg/dL Creatinine 0.3 L (0.8-1.3) mg/dL Glucose 154 H (75-100) mg/dL Calcium 6.1 L (8.4-10.2) mg/dL - Imaging and Cardiology EKG: report reviewed, image reviewed Echo: report reviewed (10/28/2020- EF 55-60%, no significant valvular abnormalities) - Allied health notes Allied health notes reviewed: nursing
[2020-11-05] MEDS: POTASSIUM CHLORIDE 20 MEQ 20 MEQ/100 ML BAG IV SCH ×3 (12:19→14:42)
--- NOTE | 2020-11-05 12:31 | Progress Note ---
Assessment and Plan Assessment and plan: -ID, cardiology, CCM, surgery, vascular surgery, nephrology, WOCN consulted, appreciate recommendations -FAZAL, pneumonia, infected sacral wound, acute respiratory failure, leukocytosis, hypotension requiring vasopressor support -Antibiotic therapy -Trend CBC -10/26 tracheal aspirate with MRSA, 10/26 blood cultures x2 with Proteus mirabilis, 10/27 urine culture possible contaminant -VAP bundle -Wound care per nursing -Trend BMP -Strict intake and output -Daily weights -S/p IVF resuscitation -Trend lactic acid -HIT panel pending -Amiodarone for rate control -cdiff pending GI/DVT prophylaxis: No chemical anticoagulation r/t thrombocytopenia, SCDs to bilateral legs while in bed, PPI Dispo: ICU The high probability of a clinically significant, sudden or life threatening deterioration of the [multi] system(s) required my full and direct attention, intervention and personal management. The aggregate critical care time was [35] minutes. This time is in addition to time spent performing reported procedures but includes the following: [x] Data Review and interpretation [x] Patient assessment and monitoring of vital signs [x] Documentation [x] Medication orders and management History Interval history: This is a 75-year-old male who is a assisted resident with seizure disorder, hypertension, depression, hyperlipidemia, hypoglycemia, dysphagia, and encephalopathy who presents to the emergency department on 10/26 via EMS for tachypnea, dry mucous membranes and hypoxia. Patient was hypotensive, febrile to 103 degrees and hypoxic in the emergency department therefore he was intubated and central IV access was obtained. Patient received 3.5 L of IV fluid in the emergency department. Patient was admitted to the hospital service with consults to CCM, surgery, WOCN and ID for Sepsis, acute kidney injury, urinary tract infection, acute respiratory failure, electrolyte imbalances, infected sacral wound and bilateral pneumonia. Sepsis Acute respiratory failure Infected sacral wound s/p debridement with surgery Anemia s/p 2 units prbc Proteus bacteremia MRSA pneumonia Urine tract infection Acute kidney injury Leukocytosis Hypokalemia Hypocalcemia Hypomagnesemia Lactic acidosis 10/27: Patient received additional 4 L LR for fluid resuscitation and CV monitoring was initiated. Patient is on Levophed. ID added Flagyl to vancomycin and cefepime. His trach aspirate grew staph coccus aureus. At the time my examination patient the fentanyl drip was held by RN and he was on 14 MCG of Levophed. This morning he was on assist control 450/20/6/.100. We will give additional bolus of fluids with goal CVP 10-12 and repeat labs in AM. Karen alexander was consulted to possible debridement. 10/28: Overnight it was noted that patient went into SVT and he was given adenosine 6 mg/12 mg / 12 mg once and was started on a Cardizem drip after no response to amnio bolus and cardiology was consulted. Currently patient remains on Levophed drip and is hypotensive and received additional 2 L of bolus for goal CVP of 10-12. Infectious disease changed cefepime/Flagyl to meropenem for GNR in his blood cultures 09/04 and will continue vancomycin. Patient currently was not well controlled on max Cardizem and cardiology initiated amiodarone. Patient still is very tachycardic. Patient is hypomagnesemic and we will replete his Mg and recheck level. We will give the patient additional to complete resolve LR this afternoon. Patient has a standing order per [facility] to bolus the patient with LR for CVP goal of 10-12. This morning he is hyperchlormeic, metabolic acidotic (bicarb drip initiated) and his BUN/creatinine slightly elevated. Patient still remains lactic acidotic. 10/29: Patient's blood culture speciated to Proteus and his tracheal aspirate is MRSA. He is currently on ceftriaxone, Flagyl and vancomycin. Patient heart rate consistently is 110-150s and cardiology has given him an amiodarone bolus today and he remains on amiodarone drip. He looks much started on IV digoxin. This morning 4 L LR bolus was ordered and we will bolus an additional 4 L of LR this afternoon. Patient still has lactic acidosis, metabolic acidosis, leukoc ytosis and hyperchloremia. On examination this morning patient is more edematous and he remains on Levophed and amnio drip. 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 Remains on amio, levo and sedated with fentanyl. He is hypokalemic today which was repleted, h/h 02/18 and he is being type and crossed today with 2 units PRBC ordered to be transfused. Plt drop noted, heparin discontinued and HIT ordered. Bicarb gtt discontinued. No acute events overnight. 10/31: Patient hypomagnesemia today which was repleted and cardiology has changed his IV amiodarone to p.o. Patient will get albumin per [facility]. At the time my examination patient is on assist control 450/20/6/0.40. 11/03: At the time my examination patient is on assist control 450/20/6/0.25 and sedated with fentanyl and on Levophed at 4.Patient's leukocytosis is improving he received Albumin this weekend. Patient is hypokalemic, hypomagnesemic, hypocalcemic today. We will repeat his electrolytes and recheck a BMP in the a.m. Patient received 2 units PRBC on 10/30 and his hemoglobin has been trending down. We will recheck in the a.m. 11/04: At the time of my examination patient was on Levophed 3 mcg and on VZV/CPAP 450/20/6/0.35. Patient still has leukocytosis, respiratory alkalosis, hyponatremia, hypochloremia, hypocalcemia. Today his magnesium and potassium repleted with bolus of potassium 4/magnesium 2. He received 60 mcg KCl p.o., 40 mEq of KCl IV and 2 g of magnesium sulfate. We will recheck BMP and mag and a.m. Surgery has deemed the patient to unstable for further debulking. We also consulted vascular surgery for PVD as patient has discoloration to BLE /feet. 11/05: Vascular surgery will obtain bilateral lower extremity arterial duplex to evaluate arterial flow and recommends adding as FWF to tube feedings in assisting to wean off of vasopressors. Patient has hypokalemia, hypoph osphatemia and normal to low magnesium. Magnesium, potassium and phosphate have been repleted. Patient still remains on ventilator support but on CPAP trial this morning. Patient HIT is still pending. This morning at the time of my examination patient was on assist-control 450/20/6/0.35 and he tolerated CPAP trial for 4 hours yesterday. He was on Levophed 0.5 and his rectal tube output was noted at 1000 mL. Hospitalist Physical - Constitutional Vitals: Temp Pulse Resp BP Pulse Ox 98.6 F 90 28 H 104/49 97 11/05/20 07:25 11/05/20 12:21 11/05/20 12:00 11/05/20 12:21 11/05/20 12:21 General appearance: Present: no acute distress, other (intubated) - EENT Eyes: Present: PERRL ENT: poor dentition - Neck Neck: Present: normal ROM - Respiratory Respiratory effort: normal Respiratory: bilateral: diminished - Cardiovascular Rhythm: regular Heart Sounds: Present: S1 & S2. Absent: systolic murmur, diastolic murmur - Extremities Extremities: pulses intact, pulses symmetrical, normal temperature, normal color Extremity abnormal: edema Peripheral Pulses: within normal limits - Abdominal General gastrointestinal: soft, non-tender, non-distended, normal bowel sounds - Integumentary Integumentary: Present: warm, dry - Psychiatric Psychiatric: cooperative - Neurologic Neurologic: moves all extremities - Allied Health Allied health notes reviewed: nursing, RT, social work HEART Score - HEART Score EKG: Non-specific Age: > 65 Risk factors: > 3 risk factors or hx of atherosclerotic disease Troponin: Troponin T 0.062 ng/mL (0.00-0.029) H 10/26/20 17:25 Troponin: < normal limit - Critical Actions Critical Actions: 4-6 pts:12-16.6% risk of adverse cardiac event. Should be admitted Results - Labs CBC & Chem 7: 11/05/20 04:48 11/05/20 04:48 Labs: Laboratory Last Values WBC 17.4 K/mm3 (4.5-11.0) H 11/05/20 04:48 RBC 2.49 M/mm3 (3.65-5.03) L 11/05/20 04:48 Hgb 7.8 gm/dl (11.8-15.2) L 11/05/20 04:48 Hct 23.5 % (35.5-45.6) L 11/05/20 04:48 MCV 94 fl (84-94) 11/05/20 04:48 MCH 31 pg (28-32) 11/05/20 04:48 MCHC 33 % (32-34) 11/05/20 04:48 RDW 16.0 % (13.2-15.2) H 11/05/20 04:48 Plt Count 69 K/mm3 (140-440) L 11/05/20 04:48 Add Manual Diff Complete 11/02/20 08:40 Total Counted 100 11/02/20 08:40 Seg Neutrophils % Wrecking Supervisor 11/02/20 08:40 Seg Neuts % (Manual) 97.0 % (40.0-70.0) H 11/02/20 08:40 Band Neutrophils % 17.0 % 10/27/20 03:30 Lymphocytes % (Manual) 2.0 % (13.4-35.0) L 11/02/20 08:40 Monocytes % (Manual) 1.0 % (0.0-7.3) 11/02/20 08:40 Eosinophils % (Manual) 2.0 % (0.0-4.3) 10/27/20 03:30 Metamyelocytes % 4.0 % 10/27/20 03:30 Nucleated RBC % 1.0 % (0.0-0.9) H 11/02/20 08:40 Seg Neutrophils # Man 16.1 K/mm3 (1.8-7.7) H 11/02/20 08:40 Band Neutrophils # 0.0 K/mm3 11/02/20 08:40 Lymphocytes # (Manual) 0.3 K/mm3 (1.2-5.4) L 11/02/20 08:40 Abs React Lymphs (Man) 0.0 K/mm3 11/02/20 08:40 Monocytes # (Manual) 0.2 K/mm3 (0.0-0.8) 11/02/20 08:40 Eosinophils # (Manual) 0.0 K/mm3 (0.0-0.4) 11/02/20 08:40 Basophils # (Manual) 0.0 K/mm3 (0.0-0.1) 11/02/20 08:40 Metamyelocytes # 0.0 K/mm3 11/02/20 08:40 Myelocytes # 0.0 K/mm3 11/02/20 08:40 Promyelocytes # 0.0 K/mm3 11/02/20 08:40 Blast Cells # 0.0 K/mm3 11/02/20 08:40 WBC Morphology Not Reportable 11/02/20 08:40 Hypersegmented Neuts Not Reportable 11/02/20 08:40 Hyposegmented Neuts Not Reportable 11/02/20 08:40 Hypogranular Neuts Not Reportable 11/02/20 08:40 Smudge Cells Not Reportable 11/02/20 08:40 Toxic Granulation Not Reportable 11/02/20 08:40 Toxic Vacuolation Not Reportable 11/02/20 08:40 Dohle Bodies Not Reportable 11/02/20 08:40 Pelger-Huet Anomaly Not Reportable 11/02/20 08:40 Kassi Rods Not Reportable 11/02/20 08:40 Platelet Estimate Consistent w auto 11/02/20 08:40 Clumped Platelets Not Reportable 11/02/20 08:40 Plt Clumps, EDTA Not Reportable 11/02/20 08:40 Large Platelets Not Reportable 11/02/20 08:40 Giant Platelets Not Reportable 11/02/20 08:40 Platelet Satelliting Not Reportable 11/02/20 08:40 Plt Morphology Comment Not Reportable 11/02/20 08:40 RBC Morphology Normal 11/02/20 08:40 Dimorphic RBCs Not Reportable 11/02/20 08:40 Polychromasia Not Reportable 11/02/20 08:40 Hypochromasia Not Reportable 11/02/20 08:40 Poikilocytosis Not Reportable 11/02/20 08:40 Anisocytosis Not Reportable 11/02/20 08:40 Microcytosis Not Reportable 11/02/20 08:40 Macrocytosis Not Reportable 11/02/20 08:40 Spherocytes Not Reportable 11/02/20 08:40 Pappenheimer Bodies Not Reportable 11/02/20 08:40 Sickle Cells Not Reportable 11/02/20 08:40 Target Cells Not Reportable 11/02/20 08:40 Tear Drop Cells Not Reportable 11/02/20 08:40 Ovalocytes Not Reportable 11/02/20 08:40 Helmet Cells Not Reportable 11/02/20 08:40 [place] Bodies Not Reportable 11/02/20 08:40 [place] Rings Not Reportable 11/02/20 08:40 [place] Cells Not Reportable 11/02/20 08:40 Bite Cells Not Reportable 11/02/20 08:40 Crenated Cell Not Reportable 11/02/20 08:40 Elliptocytes Not Reportable 11/02/20 08:40 Acanthocytes (Spur) Not Reportable 11/02/20 08:40 Rouleaux Not Reportable 11/02/20 08:40 Hemoglobin C Crystals Not Reportable 11/02/20 08:40 Schistocytes Not Reportable 11/02/20 08:40 Malaria parasites Not Reportable 11/02/20 08:40 Richard Bodies Not Reportable 11/02/20 08:40 Hem Pathologist Commnt No 11/02/20 08:40 APTT 27.9 Sec. (24.2-36.6) 10/26/20 17:25 ABG pH 7.525 (7.320-7.450) H 11/04/20 11:42 POC ABG pCO2 28.9 mmHg (32.0-48.0) L 11/04/20 11:42 ABG pCO2 35.7 mm Hg 11/02/20 04:30 POC ABG pO2 64.3 mmHg (83-108) L 11/04/20 11:42 ABG pO2 88.3 mm Hg (80.0-90.0) 11/02/20 04:30 POC ABG HCO3 23.3 11/04/20 11:42 ABG HCO3 24.6 mmol/L (20.0-26.0) 11/02/20 04:30 ABG O2 Saturation 95 (0-100) 11/04/20 11:42 ABG O2 Content 12.4 (0.0-44) 11/02/20 04:30 POC ABG Base Excess 0.9 11/04/20 11:42 ABG Base Excess 0.8 mmol/L (-2.0-3.0) 11/02/20 04:30 ABG Hemoglobin 8.2 (12.0-17.5) L 11/04/20 11:42 ABG Oxyhemoglobin 94 (94-98) 11/04/20 11:42 ABG Carboxyhemoglobin 1.4 % (0.0-5.0) 11/02/20 04:30 ABG Methemoglobin 0.1 (0.0-1.5) 11/04/20 11:42 ABG Sodium 142.4 mmol/L (136.0-145.0) 11/04/20 11:42 ABG Potassium 3.3 mmol/L (3.40-4.50) L 11/04/20 11:42 ABG Chloride 115.0 mmol/L (98-107) H 11/04/20 11:42 ABG Glucose 165 mg/dL (65-95) H 11/04/20 11:42 Oxyhemoglobin 95.3 % (95.0-99.0) 11/02/20 04:30 Carboxyhemoglobin 1 (0.5-1.5) 11/04/20 11:42 FiO2 35 % 11/02/20 04:30 FiO2 % 35 11/04/20 11:42 Sodium 147 mmol/L (137-145) H 11/05/20 04:48 Potassium 3.5 mmol/L (3.6-5.0) L 11/05/20 04:48 Chloride 115.4 mmol/L (98-107) H 11/05/20 04:48 Carbon Dioxide 28 mmol/L (22-30) 11/05/20 04:48 Anion Gap 7 mmol/L 11/05/20 04:48 BUN 34 mg/dL (9-20) H 11/05/20 04:48 Creatinine 0.3 mg/dL (0.8-1.3) L 11/05/20 04:48 Estimated GFR > 60 ml/min 11/05/20 04:48 BUN/Creatinine Ratio 113 % 11/05/20 04:48 Glucose 154 mg/dL (75-100) H 11/05/20 04:48 POC Glucose 144 mg/dL (70-105) H 11/05/20 11:33 Hemoglobin A1c 5.5 % (4-6) 10/27/20 04:42 Lactic Acid 4.30 mmol/L (0.7-2.0) H* 10/31/20 Unknown Calcium 6.1 mg/dL (8.4-10.2) L 11/05/20 04:48 Phosphorus 2.00 mg/dL (2.5-4.5) L 11/05/20 04:48 Magnesium 1.70 mg/dL (1.7-2.3) 11/05/20 04:48 Total Bilirubin 0.20 mg/dL (0.1-1.2) 10/29/20 05:15 AST 14 units/L (5-40) 10/29/20 05:15 ALT 12 units/L (7-56) 10/29/20 05:15 Alkaline Phosphatase 98 units/L (35-129) 10/29/20 05:15 Total Creatine Kinase 31 units/L (55-170) L 10/26/20 17:28 Troponin T 0.062 ng/mL (0.00-0.029) H 10/26/20 17:25 Total Protein 6.0 g/dL (6.3-8.2) L 10/29/20 05:15 Albumin 1.0 g/dL (3.9-5) L 10/29/20 05:15 Albumin/Globulin Ratio 0.2 % 10/29/20 05:15 Triglycerides 190 mg/dL (2-149) H 10/26/20 17:25 Cholesterol 92 mg/dL (50-199) 10/26/20 17:25 LDL Cholesterol Direct 33 mg/dL (50-130) L 10/26/20 17:25 HDL Cholesterol 18 mg/dL (40-59) L 10/26/20 17:25 Cholesterol/HDL Ratio 5.11 % 10/26/20 17:25 TSH 1.490 mlU/mL (0.270-4.200) 10/26/20 17:28 Arterial Blood Glucose 165 mg/dL (65-95) H 11/04/20 11:42 Arterial Blood Ionized Calcium 4.0 mg/dL (4.6-5.3) L 11/04/20 11:42 Urine Color Yellow (Yellow) 10/27/20 Unknown Urine Turbidity Turbid (Clear) 10/27/20 Unknown Urine pH 8.0 (5.0-7.0) H 10/27/20 Unknown Ur Specific [place] 1.020 (1.003-1.030) 10/27/20 Unknown Urine Protein >500 mg/dL (Negative) 10/27/20 Unknown Urine Glucose (UA) Neg mg/dL (Negative) 10/27/20 Unknown Urine Ketones Neg mg/dL (Negative) 10/27/20 Unknown Urine Blood Sm (Negative) 10/27/20 Unknown Urine Nitrite Neg (Negative) 10/27/20 Unknown Urine Bilirubin Neg (Negative) 10/27/20 Unknown Urine Urobilinogen < 2.0 mg/dL (<2.0) 10/27/20 Unknown Ur Leukocyte Esterase Mod (Negative) 10/27/20 Unknown Urine WBC (Auto) > 182.0 /HPF (0.0-6.0) H 10/27/20 Unknown Urine RBC (Auto) 35.0 /HPF (0.0-6.0) 10/27/20 Unknown Urine WBC Clumps 3+ /HPF 10/27/20 Unknown Urine Mucus 3+ /HPF 10/27/20 Unknown Urine Yeast (Budding) 3+ /HPF 10/27/20 Unknown Vancomycin Trough 22.0 ug/mL (5.0-20.0) H 10/30/20 Unknown Salicylates < 0.3 mg/dL (2.8-20.0) L 10/26/20 17:28 Acetaminophen 5.0 ug/mL (10.0-30.0) L 10/26/20 17:28 Coronavirus (PCR) Negative (Negative) 10/27/20 Unknown Blood Type O POSITIVE 10/30/20 09:30 Antibody Screen Negative 10/30/20 09:30 Crossmatch See Detail 10/30/20 09:30 Rivas/IV: Voiding Method Indwelling Catheter Active Medications - Current Medications Current Medications: Generic Name Dose Route Start Last Admin Trade Name Freq PRN Reason Stop Dose Admin Acetaminophen 650 mg 10/26/20 22:22 11/04/20 21:43 Acetaminophen 325 Mg Tab PO 650 mg Q4H PRN Administration Pain MILD(1-3)/Fever >100.5/TIERNEY Amiodarone HCl 200 mg 10/31/20 12:00 11/05/20 10:02 Amiodarone 200 Mg Tab PO 200 mg BID MARSHALL Administration Lipase/Protease/Amylase 1 each 10/28/20 13:18 Lipase 10,500/Protease 25,000/Amylase 43,750 (Units) Dr Casper FEEDTUBE PRN PRN For Clogged Feeding Tube Famotidine 20 mg 10/28/20 10:00 11/05/20 10:01 Famotidine 20 Mg/2 Ml Inj IV 20 mg BID MARSHALL Administration Fentanyl 50 mcg 10/26/20 17:25 11/04/20 18:12 Fentanyl 100 Mcg/2 Ml Inj IV 50 mcg Q10MIN PRN Administration ANALGESIA Fentanyl 50 mcg 10/27/20 10:39 11/05/20 00:37 Fentanyl 100 Mcg/2 Ml Inj IV 50 mcg Q2H PRN Administration Pain , Severe (7-10) Hydrophilic Ointment 1 applic 10/26/20 17:25 Lip Therapy Vaseline TP Q2HR PRN Dry Lips Norepinephrine 4 mg in 250 mls @ 112.5 mls/hr 10/28/20 01:00 11/05/20 12:23 Levophed Drip 4 Mg/Ns 250 Ml IV 0 mcg/min TITR MARSHALL 0 mls/hr Titration Protocol 30 MCG/MIN Vasopressin 20 unit/ Sodium 101 mls @ 9.09 mls/hr 10/28/20 16:00 Chloride IV TITR MARSHALL Protocol 0.03 UNITS/MIN Ceftriaxone Sodium 2 gm in 100 mls @ 200 mls/hr 10/29/20 13:00 11/04/20 14:34 Rocephin/Ns 2 Gm/100 Ml IV 11/12/20 13:29 Infused Q24H MARSHALL Infusion Protocol Metronidazole 500 mg in 100 mls @ 100 mls/hr 10/29/20 14:00 11/05/20 05:20 Flagyl 500 Mg/100 Ml IV 11/12/20 14:59 100 mls/hr Q8H MARSHALL Administration Protocol Potassium Phosphate 30 mmol/ 510 mls @ 83 mls/hr 11/05/20 10:00 11/05/20 10:02 Sodium Chloride IV 11/05/20 16:08 83 mls/hr ONCE ONE Administration Potassium Chloride 20 meq in 100 mls @ 100 mls/hr 11/05/20 11:30 11/05/20 12:19 Kcl 20meq/100ml IV 11/05/20 14:29 100 mls/hr Q1H MARSHALL Administration Multi-Ingred Cream/Lotion/Oil/Oint 1 applic 10/26/20 17:25 Mineral Oil/Petrolatum, White Ophth Oint 3.5 Gm OU Q4HR PRN Dry Eye(s) Ondansetron HCl 4 mg 10/26/20 22:22 Ondansetron 4 Mg/2 Ml Inj IV Q8H PRN Nausea And Vomiting Potassium Chloride 40 meq 11/05/20 10:00 11/05/20 10:01 Potassium Chloride 20 Meq Packet FEEDTUBE 11/05/20 14:01 40 meq Q4H MARSHALL Administration Simple Syrup 15 ml 10/28/20 13:18 Simple Syrup 15 Ml FEEDTUBE PRN PRN Hypoglycemia Simple Syrup 30 ml 10/28/20 13:18 Simple Syrup 15 Ml FEEDTUBE PRN PRN Hypoglycemia Sodium Bicarbonate 325 mg 10/28/20 13:18 Sodium Bicarbonate 325 Mg Tab FEEDTUBE PRN PRN For Clogged Feeding Tube Sodium Chloride 5 ml 10/26/20 17:25 Sodium Chloride 0.9% 500 Ml Ivpb IV DIRECT PRN ARTERIAL GANG WORKER Sodium Chloride 10 ml 10/27/20 10:00 11/05/20 10:37 Sodium Chloride 0.9% 10 Ml Flush Syringe IV 10 ml BID MARSHALL Administration Sodium Chloride 10 ml 10/26/20 22:22 Sodium Chloride 0.9% 10 Ml Flush Syringe IV PRN PRN LINE FLUSH Sodium Hypochlorite 1 applic 10/28/20 10:00 11/05/20 10:36 Sodium Hypochlorite, Dakin's 1/2 Strength (0.25%) 473 Ml Topical Soln TP 1 applicatio BID MARSHALL Administration Nutrition/Malnutrition Assess - Dietary Evaluation Nutrition/Malnutrition Findings: Nutrition Notes Start: 10/27/20 09:15 Freq: Status: Active Protocol: Document 11/05/20 11:36 CW (Rec: 11/05/20 11:43 CW [id number]) Nutrition Notes Initial or Follow up Reassessment Current Diagnosis Acute Kidney Injury,Decubitus( Pressure Ulcer),Sepsis, Hypertension,Respiratory Failure,Hyperlipidemia Other Pertinent Diagnosis AMS, MRSA, Encephalopathy, Metabiloc Acidosis, pneu ,FTT Current Diet Vital HP at 80 ml/hr Labs/Tests Na 147 K3.5 BUN 34 Cr 0.3 BG 154 Pertinent Medications Levophed K3PO4 Flagyl Height 6 ft 2 in Weight 134.7 kg [place] Body Weight (kg) 86.36 BMI 38.1 Weight change and time frame 20.5% weight change x 6 days. Likely r/t edema + nutrition implementation Weight Status Obese Subjective/Other Information F/U for TF tolerance and vent status. Pt remains on mechanical vent. TF is well tolerated and running at goal. Large loose stool likely r/t ABTx. Percent of energy/protein needs met: 100%/100% Burn Absent Trauma Absent GI Symptoms Diarrhea Difficulty In Swallowing,Chewing Skin Integrity/Comment Multiple pressure ulcer,1 infected Current % PO Negligible Minimum of two criteria No Fluid Accumulation Moderate to Severe (severe) #1 Nutrition Diagnosis Inadequate oral intake Diagnosis Progress(for reassessment Continues documentation) Is patient on ventilator? Yes Is Patient Ambulatory and/or Out of Bed No REE-([place]-St. Jeor-confined to bed) 2581.776 Kcal/Kg value to use for calculation 14 Approximate Energy Requirements Using 1886 kcal/Kg Calculation Used for Recommendations Kcal/kg Additional Notes protein needs: >163g (>2g/kgBW ) Fluid needs 1 ml/kcal Nutrition Intervention Change Diet Order: Continue TF Nutrition Support: Vital HP at 80 ml/hr with a free water flush of 50 ml q4h Kcal 1,920 Protein (gm) 168 Fluid (mL) 1,605 Goal #1 TF tolerance Goal #2 Meet at least 75% EER and protein needs via TF Goal #3 wound healing Anticipated Discharge Needs: unable to determine at this time Follow-Up By: 11/10/20 Additional Comments F/U for TF tolerance and vent status
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
--- NOTE | 2020-11-05 14:56 | Vascular Lab Report ---
ULTRASOUND LOWER EXTREMITY ARTERIAL DOPPLER, INDICATION: Bilteral lower extremity ischemia FINDINGS: Right Leg Arterial Systolic Velocities (cm/sec): Monophasic waveforms noted mid superficial femoral a rtery and distally CRAYON SAWYER = 94 cm/s SFA proximal = 89 cm/s SFA mid = 10 5 cm/s SFA distal = 86 cm/s Popliteal = 93 cm/s Posterior tibial = 54 cm/s Dorsalis pedis = 20 cm/s Left Leg Arterial Systolic Velocities (cm/sec): Monophasic waveforms throughout the left lower extrem ity CRAYON SAWYER = 69 cm/s SFA proximal = 93 cm second SFA mid = 0 SFA distal = 0 Popliteal = 32 cm/s Posterior tibial = 54 cm /sec Dorsalis pedis = 10 cm/sec Ankle Brachial Index: Right leg LAUREL = Left leg LAUREL = IMPRESSION: 1. Markedly abnormal arterial duplex imaging lower extremities, CTA lower extremities would be of juan miguel efit for evaluation Signer Name: Pantera Cabrera MD Signed: 11/05/2020 2:51 PM Workstation Name: [id number]
[2020-11-05] MEDS: cefTRIAXone/NS 2 GM/100 ML 2 GM/100 ML BAG IV SCH (15:24)
--- NOTE | 2020-11-05 17:09 | Progress Note ---
Assessment and Plan Cultures: 10/26/2020 tracheal aspirate culture: MRSA 10/26/2020 blood culture: Proteus 10/27/2020 urine culture: Mixed hien A/P: 75-year-old male, senior care resident with seizure disorder, hypertension, depression, hyperlipidemia, chronic encephalopathy was sent to the hospital with worsening mental status: #Septic shock, Proteus bacteremia: Off pressors, noted worsening leukocytosis. multifactorial from infected sacral decubitus ulcer, bilateral pneumonia, UTI. Worsening leukocytosis now with acute diarrhea 1L loose stool overnight ? C. difficile #Acute diarrhea: ? C. difficile #Necrotic, infected sacral decubitus ulcer: underwent debridement 10/29/2020, also noted to have brittle coccyx consistent with osteomyelitis. #UTI: UA with significant pyuria. #Bilateral pneumonia: Noted on CT. Possibly some aspiration. Sputum culture positive for MRSA. Received vancomycin IV for 7 days. #FAZAL: Renally dose antibiotics. #Acute respiratory failure: on the vent. Recs: -Agree with C. difficile testing -Start vancomycin 125 mg p.o. 4 times daily for now -Contact isolation -Monitor leukocytosis -continue Ceftriaxone + Flagyl x 14 days from debridement (prolonged abx not of much benefit even though there is osteomyelitis, main stay will be offloading and wound care) -Goal of care discussion with family will follow MD [facility] ([facility]) Office [phone] Subjective Date of service: 11/05/20 Principal diagnosis: Acute Resp Fail, Septic Shock, Sacral Ulcer, AF with RVR Interval history: Remains intubated, T-max 99.7, FiO2 30%, PEEP of 6 Objective - Exam Narrative Exam: General appearance: Intubated, sedated Eyes: anicteric sclerae, moist conjunctivae; no lid-lag; PERRLA HENT: Normocephalic, Atraumatic; normal external ears, nares open, oropharynx limited, he ETT in place, NG tube in place Neck: supple, tracheal midline, no JVD Lungs: Diminished breath sound bilaterally CV: RRR Abdomen: Soft, nontender Extremities: Bilateral upper extremity and lower extremity edema Skin: No rash. Extensive scrotal edema Psych: Sedated Neuro: Sedated - Constitutional Vitals: Vital Signs Temp Pulse Resp BP Pulse Ox 98.9 F 94 H 36 H 106/49 98 11/05/20 16:13 11/05/20 16:15 11/05/20 16:15 11/05/20 16:15 11/05/20 16:15 Temperature -Last 24 Hours Temperature 98.9 F Temperature 98.6 F Temperature 98.6 F Temperature 99.0 F Temperature 99.0 F Temperature 99.4 F Temperature 99.7 F Temperature 99.7 F - Labs CBC & Chem 7: 11/05/20 04:48 11/05/20 04:48 Labs: Abnormal lab results 11/04/20 11/04/20 11/05/20 Range/Units 17:18 23:12 04:48 WBC 17.4 H (4.5-11.0) K/mm3 RBC 2.49 L (3.65-5.03) M/mm3 Hgb 7.8 L (11.8-15.2) gm/dl Hct 23.5 L (35.5-45.6) % RDW 16.0 H (13.2-15.2) % Plt Count 69 L (140-440) K/mm3 Sodium (137-145) mmol/L Potassium (3.6-5.0) mmol/L Chloride (98-107) mmol/L BUN (9-20) mg/dL Creatinine (0.8-1.3) mg/dL Glucose (75-100) mg/dL POC Glucose 144 H 155 H (70-105) mg/dL Calcium (8.4-10.2) mg/dL Phosphorus (2.5-4.5) mg/dL 11/05/20 11/05/20 11/05/20 Range/Units 04:48 05:57 11:33 WBC (4.5-11.0) K/mm3 RBC (3.65-5.03) M/mm3 Hgb (11.8-15.2) gm/dl Hct (35.5-45.6) % RDW (13.2-15.2) % Plt Count (140-440) K/mm3 Sodium 147 H (137-145) mmol/L Potassium 3.5 L (3.6-5.0) mmol/L Chloride 115.4 H (98-107) mmol/L BUN 34 H (9-20) mg/dL Creatinine 0.3 L (0.8-1.3) mg/dL Glucose 154 H (75-100) mg/dL POC Glucose 146 H 144 H (70-105) mg/dL Calcium 6.1 L (8.4-10.2) mg/dL Phosphorus 2.00 L (2.5-4.5) mg/dL
[2020-11-06] MEDS: VANCOMYCIN 250 MG/10 ML ORAL LIQD PO SCH ×5 (00:41→16:59)
[2020-11-06] MEDS: fentaNYL 100 MCG/2 ML INJ IV PRN ×3 (02:31→15:36)
[2020-11-06 06:58] LABS: Hematocrit 22.1 % (35.5-45.6); Hemoglobin 7.2 gm/dl (11.8-15.2); Mean Corpuscular HGB Conc 33 % (32-34); Mean Corpuscular Volume 95 fl (84-94); Platelet Count 103 K/mm3 (140-440); Red Blood Count 2.33 M/mm3 (3.65-5.03); Red Cell Distribution Width 16.2 % (13.2-15.2)
[2020-11-06 07:21] LABS: Alanine Aminotransferase 20 units/L (7-56); Albumin 1.4 g/dL (3.9-5); Blood Urea Nitrogen 32 mg/dL (9-20); Calcium 6.4 mg/dL (8.4-10.2); Hemolysis Index 1
[2020-11-06 07:31] LABS: BUN/Creatinine Ratio 80
[2020-11-06] MEDS: metroNIDAZOLE/NS 500 MG/100 ML 500 MG/100 ML BAG IV SCH ×3 (07:39→23:00)
[2020-11-06] MEDS ORDERED: SODIUM PHOSPHATE 30 MMOL in SODIUM CHLORIDE 0.9% 500 ML 250 ML IV PRN (08:30)
[2020-11-06] MEDS ORDERED: MAGNESIUM SULFATE 2 GM/50 ML BAG IV ONE (09:00)
[2020-11-06] MEDS: AMIODARONE 200 MG TAB PO SCH ×2 (09:05→22:27)
[2020-11-06] MEDS: FAMOTIDINE 20 MG/2 ML INJ IV SCH ×2 (09:05→22:27)
[2020-11-06] MEDS: SODIUM HYPOCHLORITE, DAKIN'S 1/2 STRENGTH (0.25%) 473 ML TOPICAL SOLN TP SCH ×2 (09:06→22:28)
--- NOTE | 2020-11-06 10:01 | Progress Note ---
Assessment and Plan Patient would like a baseline peripheral vascular disease with SFA occlusion and superimposed hypotension. He is now been weaned off Levophed. He remains intubated. The patient's not a candidate for revascularization procedure at this time given his comorbidities. Subjective Date of service: 11/06/20 Principal diagnosis: Acute Resp Fail, Septic Shock, Sacral Ulcer, AF with RVR Interval history: Patient with sepsis from sacral decubitus ulcer who while on pressors was noted to have a discoloration of his legs. Arterial duplex demonstrates SFA occlusions bilaterally with poor tibial flow distally. On examination, the patient has significant volume overload to his extremities and scrotum. Unable to palpate pulses. He remains intubated. Objective - Constitutional Vitals: Vital Signs - 12hr 11/05/20 11/05/20 11/05/20 22:00 22:15 22:30 Temperature Pulse Rate 95 H 96 H 98 H Pulse Rate [ From Monitor] Respiratory 33 H 33 H 33 H Rate Blood Pressure 117/60 128/56 128/54 O2 Sat by Pulse 99 98 98 Oximetry 11/05/20 11/05/20 11/05/20 22:45 23:00 23:15 Temperature Pulse Rate 98 H 98 H 98 H Pulse Rate [ From Monitor] Respiratory 35 H 33 H 35 H Rate Blood Pressure 113/56 122/57 114/52 O2 Sat by Pulse 98 99 98 Oximetry 11/05/20 11/05/20 11/06/20 23:30 23:45 00:00 Temperature 99.7 F H Pulse Rate 97 H 98 H 80 Pulse Rate [ 98 H From Monitor] Respiratory 36 H 34 H 33 H Rate Blood Pressure 111/52 117/57 103/49 O2 Sat by Pulse 99 98 99 Oximetry 11/06/20 11/06/20 11/06/20 00:15 00:30 00:45 Temperature Pulse Rate 98 H 98 H 98 H Pulse Rate [ From Monitor] Respiratory 34 H 34 H 35 H Rate Blood Pressure 103/49 113/53 113/51 O2 Sat by Pulse 98 99 99 Oximetry 11/06/20 11/06/20 11/06/20 01:00 01:15 01:30 Temperature Pulse Rate 97 H 96 H 97 H Pulse Rate [ From Monitor] Respiratory 35 H 34 H 34 H Rate Blood Pressure 120/51 118/55 109/54 O2 Sat by Pulse 99 99 99 Oximetry 11/06/20 11/06/20 11/06/20 01:45 02:00 02:15 Temperature Pulse Rate 95 H 98 H 99 H Pulse Rate [ From Monitor] Respiratory 34 H 34 H 34 H Rate Blood Pressure 115/55 121/59 127/52 O2 Sat by Pulse 99 99 100 Oximetry 11/06/20 11/06/20 11/06/20 02:30 02:31 02:45 Temperature Pulse Rate 100 H 97 H Pulse Rate [ From Monitor] Respiratory 34 H 33 H 32 H Rate Blood Pressure 117/53 107/47 O2 Sat by Pulse 99 99 Oximetry 11/06/20 11/06/20 11/06/20 03:00 03:10 03:15 Temperature Pulse Rate 97 H 98 H 98 H Pulse Rate [ From Monitor] Respiratory 32 H 34 H Rate Blood Pressure 111/49 111/49 115/54 O2 Sat by Pulse 99 99 98 Oximetry 11/06/20 11/06/20 11/06/20 03:30 03:45 04:00 Temperature 99.3 F Pulse Rate 97 H 100 H 95 H Pulse Rate [ 98 H From Monitor] Respiratory 32 H 16 38 H Rate Blood Pressure 116/52 112/50 113/52 O2 Sat by Pulse 97 94 97 Oximetry 11/06/20 11/06/20 11/06/20 04:15 04:30 04:45 Temperature Pulse Rate 99 H 98 H 95 H Pulse Rate [ From Monitor] Respiratory 36 H 36 H 34 H Rate Blood Pressure 115/54 115/54 110/54 O2 Sat by Pulse 97 97 97 Oximetry 11/06/20 11/06/20 11/06/20 05:00 05:15 05:30 Temperature Pulse Rate 95 H 94 H 95 H Pulse Rate [ From Monitor] Respiratory 36 H 33 H 35 H Rate Blood Pressure 111/51 109/52 110/57 O2 Sat by Pulse 97 96 98 Oximetry 11/06/20 11/06/20 11/06/20 05:45 06:00 06:15 Temperature Pulse Rate 96 H 96 H 93 H Pulse Rate [ From Monitor] Respiratory 36 H 26 H 36 H Rate Blood Pressure 106/55 111/57 112/52 O2 Sat by Pulse 98 97 97 Oximetry 11/06/20 11/06/20 11/06/20 06:30 06:45 07:55 Temperature Pulse Rate 92 H 94 H 95 H Pulse Rate [ From Monitor] Respiratory 38 H 38 H 33 H Rate Blood Pressure 109/54 105/55 111/55 O2 Sat by Pulse 97 98 98 Oximetry 11/06/20 11/06/20 11/06/20 08:00 09:05 09:21 Temperature 98.2 F Pulse Rate 94 H Pulse Rate [ From Monitor] Respiratory 28 H Rate Blood Pressure 103/46 O2 Sat by Pulse 97 Oximetry General appearance: Present: other (Intubated) - EENT ENT: hearing intact - Neck Neck: supple Extremities: abnormal - Gastrointestinal General gastrointestinal: Present: deferred Rectal Exam: deferred - Genitourinary Male genitourinary: scrotal edema - Labs CBC & Chem 7: 11/06/20 06:45 11/06/20 06:45 Labs: Abnormal lab results 11/05/20 11/05/20 11/05/20 Range/Units 11:33 17:52 23:37 WBC (4.5-11.0) K/mm3 RBC (3.65-5.03) M/mm3 Hgb (11.8-15.2) gm/dl Hct (35.5-45.6) % MCV (84-94) fl RDW (13.2-15.2) % Plt Count (140-440) K/mm3 Sodium (137-145) mmol/L Chloride (98-107) mmol/L BUN (9-20) mg/dL Creatinine (0.8-1.3) mg/dL Glucose (75-100) mg/dL POC Glucose 144 H 136 H 151 H (70-105) mg/dL Calcium (8.4-10.2) mg/dL Phosphorus (2.5-4.5) mg/dL Total Protein (6.3-8.2) g/dL Albumin (3.9-5) g/dL 11/06/20 11/06/20 11/06/20 Range/Units 05:36 06:45 06:45 WBC 15.0 H (4.5-11.0) K/mm3 RBC 2.33 L (3.65-5.03) M/mm3 Hgb 7.2 L (11.8-15.2) gm/dl Hct 22.1 L (35.5-45.6) % MCV 95 H (84-94) fl RDW 16.2 H (13.2-15.2) % Plt Count 103 L (140-440) K/mm3 Sodium 148 H (137-145) mmol/L Chloride 118.2 H (98-107) mmol/L BUN 32 H (9-20) mg/dL Creatinine 0.4 L (0.8-1.3) mg/dL Glucose 153 H (75-100) mg/dL POC Glucose 140 H (70-105) mg/dL Calcium 6.4 L (8.4-10.2) mg/dL Phosphorus 0.90 L* D (2.5-4.5) mg/dL Total Protein 5.0 L (6.3-8.2) g/dL Albumin 1.4 L (3.9-5) g/dL Medications & Allergies - Medications Allergies/Adverse Reactions: Allergies No Known Allergies Allergy (Verified 01/10/19 02:20) Home Medications: Home Medications Medication Instructions Recorded Confirmed Last Taken Type Folic Acid [Folvite] 1 mg PO QDAY 01/10/19 11/02/20 Unknown History Primidone [Mysoline] 250 mg PO TID 01/10/19 11/02/20 Unknown History carBAMazepine [Carbamazepine] 200 mg PO TID 01/10/19 11/02/20 Unknown History Aspirin [Aspirin BABY CHEW TAB] 81 mg PO QDAY 08/15/20 11/02/20 Unknown History AtorvaSTATin [Lipitor] 40 mg PO QHS 08/15/20 11/02/20 Unknown History Citalopram Hydrobromide 20 mg PO QDAY 08/15/20 11/02/20 Unknown History [Citalopram HBr] Ergocalciferol [Vitamin D2] 1 cap PO QWEEK 08/15/20 11/02/20 Unknown History Folic Acid [Folvite] 1 mg PO QDAY 08/15/20 11/02/20 Unknown History Mirtazapine 7.5 mg PO QHS 08/15/20 11/02/20 Unknown History guaiFENesin ER [Mucinex ER] 600 mg PO Q12H 08/15/20 11/02/20 Unknown History Midodrine [Proamatine] 5 mg PO 0800,1200,1600 #90 tablet 09/02/20 11/02/20 Un known Rx oxyCODONE /ACETAMINOPHEN [Percocet 1 tab PO Q6H PRN #14 tablet 09/02/20 11/02/20 Unknown Rx 5/325 mg] Active Medications: Generic Name Dose Route Start Last Admin Trade Name Vilma PRN Reason Stop Dose Admin Acetaminophen 650 mg 10/26/20 22:22 11/04/20 21:43 Acetaminophen 325 Mg Tab PO 650 mg Q4H PRN Administration Pain MILD(1-3)/Fever >100.5/TIERNEY Amiodarone HCl 200 mg 10/31/20 12:00 11/06/20 09:05 Amiodarone 200 Mg Tab PO 200 mg BID MARSHALL Administration Lipase/Protease/Amylase 1 each 10/28/20 13:18 Lipase 10,500/Protease 25,000/Amylase 43,750 (Units) Dr Cap FEEDTUBE PRN PRN For Clogged Feeding Tube Famotidine 20 mg 10/28/20 10:00 11/06/20 09:05 Famotidine 20 Mg/2 Ml Inj IV 20 mg BID MARSHALL Administration Fentanyl 50 mcg 10/26/20 17:25 11/04/20 18:12 Fentanyl 100 Mcg/2 Ml Inj IV 50 mcg Q10MIN PRN Administration ANALGESIA Fentanyl 50 mcg 10/27/20 10:39 11/06/20 09:05 Fentanyl 100 Mcg/2 Ml Inj IV 50 mcg Q2H PRN Administration Pain , Severe (7-10) Hydrophilic Ointment 1 applic 10/26/20 17:25 Lip Therapy Vaseline TP Q2HR PRN Dry Lips Norepinephrine 4 mg in 250 mls @ 112.5 mls/hr 10/28/20 01:00 11/06/20 01:06 Levophed Drip 4 Mg/Ns 250 Ml IV 0 mcg/min TITR MARSHALL 0 mls/hr Titration Protocol 30 MCG/MIN Vasopressin 20 unit/ Sodium 101 mls @ 9.09 mls/hr 10/28/20 16:00 Chloride IV TITR MARSHALL Protocol 0.03 UNITS/MIN Ceftriaxone Sodium 2 gm in 100 mls @ 200 mls/hr 10/29/20 13:00 11/05/20 15:24 Rocephin/Ns 2 Gm/100 Ml IV 11/12/20 13:29 200 mls/hr Q24H MARSHALL Administration Protocol Metronidazole 500 mg in 100 mls @ 100 mls/hr 10/29/20 14:00 11/06/20 07:39 Flagyl 500 Mg/100 Ml IV 11/12/20 14:59 Not Given Q8H [facility] Protocol Magnesium Sulfate 2 gm in 50 mls @ 25 mls/hr 11/06/20 09:00 11/06/20 09:05 Magnesium Sulfate 2gm/50ml IV 11/06/20 10:59 25 mls/hr Q2H ONE Administration Sodium Phosphate 30 mmol/ 260 mls @ 40 mls/hr 11/06/20 16:00 Sodium Chloride IV 11/06/20 22:29 ONCE ONE Multi-Ingred Cream/Lotion/Oil/Oint 1 applic 10/26/20 17:25 Mineral Oil/Petrolatum, White Ophth Oint 3.5 Gm OU Q4HR PRN Dry Eye(s) Ondansetron HCl 4 mg 10/26/20 22:22 Ondansetron 4 Mg/2 Ml Inj IV Q8H PRN Nausea And Vomiting Simple Syrup 15 ml 10/28/20 13:18 Simple Syrup 15 Ml FEEDTUBE PRN PRN Hypoglycemia Simple Syrup 30 ml 10/28/20 13:18 Simple Syrup 15 Ml FEEDTUBE PRN PRN Hypoglycemia Sodium Bicarbonate 325 mg 10/28/20 13:18 Sodium Bicarbonate 325 Mg Tab FEEDTUBE PRN PRN For Clogged Feeding Tube Sodium Chloride 5 ml 10/26/20 17:25 Sodium Chloride 0.9% 500 Ml Ivpb IV DIRECT PRN [employer]ED[employer]ER [employer]INTENANCE Sodium Chloride 10 ml 10/27/20 10:00 11/06/20 09:06 Sodium Chloride 0.9% 10 Ml Flush Syringe IV 10 ml BID MARSHALL Administration Sodium Chloride 10 ml 10/26/20 22:22 Sodium Chloride 0.9% 10 Ml Flush Syringe IV PRN PRN LINE FLUSH Sodium Hypochlorite 1 applic 10/28/20 10:00 11/06/20 09:06 Sodium Hypochlorite, Dakin's 1/2 Strength (0.25%) 473 Ml Topical Soln TP 1 applicatio BID MARSHALL Administration Vancomycin HCl 125 mg 11/05/20 18:00 11/06/20 07:39 Vancomycin 250 Mg/10 Ml Oral Liqd PO Not Given Q6HR [facility] Protocol HEART Score - HEART Score EKG: Non-specific Age: > 65 Risk factors: > 3 risk factors or hx of atherosclerotic disease Troponin: Troponin T 0.062 ng/mL (0.00-0.029) H 10/26/20 17:25 Troponin: < normal limit - Critical Actions Critical Actions: 4-6 pts:12-16.6% risk of adverse cardiac event. Should be admitted
--- NOTE | 2020-11-06 10:48 | Progress Note ---
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 139 H 139 H 161 H Lactic Acid Calcium Phosphorus Magnesium Total Creatine Kinase Troponin T Total Protein Albumin Triglycerides LDL Cholesterol Direct HDL Cholesterol Arterial Blood Glucose Arterial Blood Ionized Calcium Urine pH Urine WBC (Auto) Vancomycin Trough Salicylates Acetaminophen Crossmatch 11/01/20 11/01/20 11/02/20 23:20 Unknown 04:30 WBC 18.2 H RBC 3.27 L Hgb 9.9 L Hct 30.1 L D MCV MCHC RDW 15.7 H Plt Count 34 L Seg Neuts % (Manual) Lymphocytes % (Manual) Nucleated RBC % Seg Neutrophils # Man Lymphocytes # (Manual) Monocytes # (Manual) ABG pH 7.456 H POC ABG pCO2 POC ABG pO2 ABG pO2 ABG HCO3 ABG O2 Saturation ABG Base Excess ABG Hemoglobin 9.2 L ABG Oxyhemoglobin ABG Potassium ABG Chloride ABG Glucose Carboxyhemoglobin Sodium Potassium Chloride Carbon Dioxide BUN Creatinine Glucose POC Glucose 168 H Lactic Acid Calcium Phosphorus Magnesium Total Creatine Kinase Troponin T Total Protein Albumin Triglycerides LDL Cholesterol Direct HDL Cholesterol Arterial Blood Glucose Arterial Blood Ionized Calcium Urine pH Urine WBC (Auto) Vancomycin Trough Salicylates Acetaminophen Crossmatch 11/02/20 11/02/20 11/02/20 06:29 08:40 08:40 WBC 16.6 H RBC 2.87 L Hgb 8.8 L Hct 26.6 L MCV MCHC RDW 15.8 H Plt Count 30 L Seg Neuts % (Manual) 97.0 H Lymphocytes % (Manual) 2.0 L Nucleated RBC % 1.0 H Seg Neutrophils # Man 16.1 H Lymphocytes # (Manual) 0.3 L Monocytes # (Manual) ABG pH POC ABG pCO2 POC ABG pO2 ABG pO2 ABG HCO3 ABG O2 Saturation ABG Base Excess ABG Hemoglobin ABG Oxyhemoglobin ABG Potassium ABG Chloride ABG Glucose Carboxyhemoglobin Sodium Potassium 2.4 L* D Chloride 110.2 H Carbon Dioxide BUN 23 H Creatinine 0.4 L Glucose 154 H POC Glucose 131 H Lactic Acid Calcium 6.1 L Phosphorus Magnesium 1.50 L Total Creatine Kinase Troponin T Total Protein Albumin Triglycerides LDL Cholesterol Direct HDL Cholesterol Arterial Blood Glucose Arterial Blood Ionized Calcium Urine pH Urine WBC (Auto) Vancomycin Trough Salicylates Acetaminophen Crossmatch 11/02/20 11/02/20 11/02/20 13:17 17:25 18:05 WBC RBC Hgb Hct MCV MCHC RDW Plt Count Seg Neuts % (Manual) Lymphocytes % (Manual) Nucleated RBC % Seg Neutrophils # Man Lymphocytes # (Manual) Monocytes # (Manual) ABG pH POC ABG pCO2 POC ABG pO2 ABG pO2 ABG HCO3 ABG O2 Saturation ABG Base Excess ABG Hemoglobin ABG Oxyhemoglobin ABG Potassium ABG Chloride ABG Glucose Carboxyhemoglobin Sodium Potassium 3.1 L D Chloride Carbon Dioxide BUN Creatinine Glucose POC Glucose 134 H 140 H Lactic Acid Calcium Phosphorus Magnesium Total Creatine Kinase Troponin T Total Protein Albumin Triglycerides LDL Cholesterol Direct HDL Cholesterol Arterial Blood Glucose Arterial Blood Ionized Calcium Urine pH Urine WBC (Auto) Vancomycin Trough Salicylates Acetaminophen Crossmatch 11/02/20 11/03/20 11/03/20 23:36 04:15 05:07 WBC RBC Hgb Hct MCV MCHC RDW Plt Count Seg Neuts % (Manual) Lymphocytes % (Manual) Nucleated RBC % Seg Neutrophils # Man Lymphocytes # (Manual) Monocytes # (Manual) ABG pH POC ABG pCO2 POC ABG pO2 ABG pO2 ABG HCO3 ABG O2 Saturation ABG Base Excess ABG Hemoglobin ABG Oxyhemoglobin ABG Potassium ABG Chloride ABG Glucose Carboxyhemoglobin Sodium Potassium 3.0 L Chloride 111.8 H Carbon Dioxide BUN 24 H Creatinine 0.3 L Glucose 141 H POC Glucose 127 H 156 H Lactic Acid Calcium 5.8 L* Phosphorus Magnesium 1.60 L Total Creatine Kinase Troponin T Total Protein Albumin Triglycerides LDL Cholesterol Direct HDL Cholesterol Arterial Blood Glucose Arterial Blood Ionized Calcium Urine pH Urine WBC (Auto) Vancomycin Trough Salicylates Acetaminophen Crossmatch 11/03/20 11/03/20 11/04/20 11:14 17:31 00:17 WBC RBC Hgb Hct MCV MCHC RDW Plt Count Seg Neuts % (Manual) Lymphocytes % (Manual) Nucleated RBC % Seg Neutrophils # Man Lymphocytes # (Manual) Monocytes # (Manual) ABG pH POC ABG pCO2 POC ABG pO2 ABG pO2 ABG HCO3 ABG O2 Saturation ABG Base Excess ABG Hemoglobin ABG Oxyhemoglobin ABG Potassium ABG Chloride ABG Glucose Carboxyhemoglobin Sodium Potassium Chloride Carbon Dioxide BUN Creatinine Glucose POC Glucose 137 H 151 H 156 H Lactic Acid Calcium Phosphorus Magnesium Total Creatine Kinase Troponin T Total Protein Albumin Triglycerides LDL Cholesterol Direct HDL Cholesterol Arterial Blood Glucose Arterial Blood Ionized Calcium Urine pH Urine WBC (Auto) Vancomycin Trough Salicylates Acetaminophen Crossmatch 11/04/20 11/04/20 11/04/20 05:34 05:34 11:16 WBC 21.9 H RBC 2.67 L Hgb 8.2 L Hct 24.8 L MCV MCHC RDW 15.6 H Plt Count 48 L Seg Neuts % (Manual) Lymphocytes % (Manual) Nucleated RBC % Seg Neutrophils # Man Lymphocytes # (Manual) Monocytes # (Manual) ABG pH POC ABG pCO2 POC ABG pO2 ABG pO2 ABG HCO3 ABG O2 Saturation ABG Base Excess ABG Hemoglobin ABG Oxyhemoglobin ABG Potassium ABG Chloride ABG Glucose Carboxyhemoglobin Sodium 146 H Potassium Chloride 114.6 H Carbon Dioxide BUN 29 H Creatinine 0.3 L Glucose 173 H POC Glucose 156 H Lactic Acid Calcium 5.7 L* Phosphorus Magnesium Total Creatine Kinase Troponin T Total Protein Albumin Triglycerides LDL Cholesterol Direct HDL Cholesterol Arterial Blood Glucose Arterial Blood Ionized Calcium Urine pH Urine WBC (Auto) Vancomycin Trough Salicylates Acetaminophen Crossmatch 11/04/20 11/04/20 11/04/20 11:42 17:18 23:12 WBC RBC Hgb Hct MCV MCHC RDW Plt Count Seg Neuts % (Manual) Lymphocytes % (Manual) Nucleated RBC % Seg Neutrophils # Man Lymphocytes # (Manual) Monocytes # (Manual) ABG pH 7.525 H POC ABG pCO2 28.9 L POC ABG pO2 64.3 L ABG pO2 ABG HCO3 ABG O2 Saturation ABG Base Excess ABG Hemoglobin 8.2 L ABG Oxyhemoglobin ABG Potassium 3.3 L ABG Chloride 115.0 H ABG Glucose 165 H Carboxyhemoglobin Sodium Potassium Chloride Carbon Dioxide BUN Creatinine Glucose POC Glucose 144 H 155 H Lactic Acid Calcium Phosphorus Magnesium Total Creatine Kinase Troponin T Total Protein Albumin Triglycerides LDL Cholesterol Direct HDL Cholesterol Arterial Blood Glucose 165 H Arterial Blood Ionized Calcium 4.0 L Urine pH Urine WBC (Auto) Vancomycin Trough Salicylates Acetaminophen Crossmatch 11/05/20 11/05/20 11/05/20 04:48 04:48 05:57 WBC 17.4 H RBC 2.49 L Hgb 7.8 L Hct 23.5 L MCV MCHC RDW 16.0 H Plt Count 69 L Seg Neuts % (Manual) Lymphocytes % (Manual) Nucleated RBC % Seg Neutrophils # Man Lymphocytes # (Manual) Monocytes # (Manual) ABG pH POC ABG pCO2 POC ABG pO2 ABG pO2 ABG HCO3 ABG O2 Saturation ABG Base Excess ABG Hemoglobin ABG Oxyhemoglobin ABG Potassium ABG Chloride ABG Glucose Carboxyhemoglobin Sodium 147 H Potassium 3.5 L Chloride 115.4 H Carbon Dioxide BUN 34 H Creatinine 0.3 L Glucose 154 H POC Glucose 146 H Lactic Acid Calcium 6.1 L Phosphorus 2.00 L Magnesium Total Creatine Kinase Troponin T Total Protein Albumin Triglycerides LDL Cholesterol Direct HDL Cholesterol Arterial Blood Glucose Arterial Blood Ionized Calcium Urine pH Urine WBC (Auto) Vancomycin Trough Salicylates Acetaminophen Crossmatch 11/05/20 11/05/20 11/05/20 11:33 17:52 23:37 WBC RBC Hgb Hct MCV MCHC RDW Plt Count Seg Neuts % (Manual) Lymphocytes % (Manual) Nucleated RBC % Seg Neutrophils # Man Lymphocytes # (Manual) Monocytes # (Manual) ABG pH POC ABG pCO2 POC ABG pO2 ABG pO2 ABG HCO3 ABG O2 Saturation ABG Base Excess ABG Hemoglobin ABG Oxyhemoglobin ABG Potassium ABG Chloride ABG Glucose Carboxyhemoglobin Sodium Potassium Chloride Carbon Dioxide BUN Creatinine Glucose POC Glucose 144 H 136 H 151 H Lactic Acid Calcium Phosphorus Magnesium Total Creatine Kinase Troponin T Total Protein Albumin Triglycerides LDL Cholesterol Direct HDL Cholesterol Arterial Blood Glucose Arterial Blood Ionized Calcium Urine pH Urine WBC (Auto) Vancomycin Trough Salicylates Acetaminophen Crossmatch 11/06/20 11/06/20 11/06/20 05:36 06:45 06:45 WBC 15.0 H RBC 2.33 L Hgb 7.2 L Hct 22.1 L MCV 95 H MCHC RDW 16.2 H Plt Count 103 L Seg Neuts % (Manual) Lymphocytes % (Manual) Nucleated RBC % Seg Neutrophils # Man Lymphocytes # (Manual) Monocytes # (Manual) ABG pH POC ABG pCO2 POC ABG pO2 ABG pO2 ABG HCO3 ABG O2 Saturation ABG Base Excess ABG Hemoglobin ABG Oxyhemoglobin ABG Potassium ABG Chloride ABG Glucose Carboxyhemoglobin Sodium 148 H Potassium Chloride 118.2 H Carbon Dioxide BUN 32 H Creatinine 0.4 L Glucose 153 H POC Glucose 140 H Lactic Acid Calcium 6.4 L Phosphorus 0.90 L* D Magnesium Total Creatine Kinase Troponin T Total Protein 5.0 L Albumin 1.4 L Triglycerides LDL Cholesterol Direct HDL Cholesterol Arterial Blood Glucose Arterial Blood Ionized Calcium Urine pH Urine WBC (Auto) Vancomycin Trough Salicylates Acetaminophen Crossmatch Allied health notes reviewed: nursing
--- NOTE | 2020-11-06 11:02 | Progress Note ---
Assessment and Plan Cultures: 10/26/2020 tracheal aspirate culture: MRSA 10/26/2020 blood culture: Proteus 10/27/2020 urine culture: Mixed hien A/P: 75-year-old male, longterm resident with seizure disorder, hypertension, depression, hyperlipidemia, chronic encephalopathy was sent to the hospital with worsening mental status: #Septic shock, Proteus bacteremia: Off pressors, noted worsening leukocytosis. multifactorial from infected sacral decubitus ulcer, bilateral pneumonia, UTI. Worsening leukocytosis with acute diarrhea 1L loose stool overnight ? C. difficile, leukocytosis improving today #Acute diarrhea: ? C. difficile, improved on vancomycin p.o. #Necrotic, infected sacral decubitus ulcer: underwent debridement 10/29/2020, also noted to have brittle coccyx consistent with osteomyelitis. #UTI: UA with significant pyuria. #Bilateral pneumonia: Noted on CT. Possibly some aspiration. Sputum culture positive for MRSA. Received vancomycin IV for 7 days. #FAZAL: Renally dose antibiotics. #Acute respiratory failure: on the vent. #PVD: SFA occlusion. Not a candidate for revascularization per vascular Recs: -Monitor leukocytosis which is improving -Agree with C. difficile testing, sample was not collected, diarrhea now improved -cancel C diff. -Continue vancomycin 125 mg p.o. 4 times daily D2 of 10 -continue Ceftriaxone + Flagyl x 14 days from debridement D8 of 14 (prolonged abx not of much benefit even though there is osteomyelitis, main stay will be offloading and wound care) -Goal of care discussion with family will follow MD [facility]) Office [phone] Subjective Date of service: 11/06/20 Principal diagnosis: Acute Resp Fail, Septic Shock, Sacral Ulcer, AF with RVR Interval history: Patient remains on the ventilator, intubated, FiO2 35, PEEP of 6, no pressors requirement Objective - Exam Narrative Exam: General appearance: Intubated, sedated Eyes: anicteric sclerae, moist conjunctivae; no lid-lag; PERRLA HENT: Normocephalic, Atraumatic; normal external ears, nares open, oropharynx limited, he ETT in place, NG tube in place Neck: supple, tracheal midline, no JVD Lungs: Diminished breath sound bilaterally CV: RRR Abdomen: Soft, nontender Extremities: Bilateral upper extremity and lower extremity edema Skin: No rash. Extensive scrotal edema Psych: No agitated Neuro: Alert, open eyes, follows commands - Constitutional Vitals: Vital Signs Temp Pulse Resp BP Pulse Ox 98.2 F 95 H 29 H 108/52 97 11/06/20 08:00 11/06/20 10:30 11/06/20 10:30 11/06/20 10:30 11/06/20 10:30 Temperature -Last 24 Hours Temperature 98.2 F Temperature 99.3 F Temperature 99.7 F Temperature 99.6 F Temperature 98.9 F Temperature 98.6 F - Labs CBC & Chem 7: 11/06/20 06:45 11/06/20 06:45 Labs: Abnormal lab results 11/05/20 11/05/20 11/05/20 Range/Units 11:33 17:52 23:37 WBC (4.5-11.0) K/mm3 RBC (3.65-5.03) M/mm3 Hgb (11.8-15.2) gm/dl Hct (35.5-45.6) % MCV (84-94) fl RDW (13.2-15.2) % Plt Count (140-440) K/mm3 Sodium (137-145) mmol/L Chloride (98-107) mmol/L BUN (9-20) mg/dL Creatinine (0.8-1.3) mg/dL Glucose (75-100) mg/dL POC Glucose 144 H 136 H 151 H (70-105) mg/dL Calcium (8.4-10.2) mg/dL Phosphorus (2.5-4.5) mg/dL Total Protein (6.3-8.2) g/dL Albumin (3.9-5) g/dL 11/06/20 11/06/20 11/06/20 Range/Units 05:36 06:45 06:45 WBC 15.0 H (4.5-11.0) K/mm3 RBC 2.33 L (3.65-5.03) M/mm3 Hgb 7.2 L (11.8-15.2) gm/dl Hct 22.1 L (35.5-45.6) % MCV 95 H (84-94) fl RDW 16.2 H (13.2-15.2) % Plt Count 103 L (140-440) K/mm3 Sodium 148 H (137-145) mmol/L Chloride 118.2 H (98-107) mmol/L BUN 32 H (9-20) mg/dL Creatinine 0.4 L (0.8-1.3) mg/dL Glucose 153 H (75-100) mg/dL POC Glucose 140 H (70-105) mg/dL Calcium 6.4 L (8.4-10.2) mg/dL Phosphorus 0.90 L* D (2.5-4.5) mg/dL Total Protein 5.0 L (6.3-8.2) g/dL Albumin 1.4 L (3.9-5) g/dL
[2020-11-06] MEDS: MIDODRINE 5 MG TAB PO SCH ×2 (11:53→16:58)
[2020-11-06] MEDS: cefTRIAXone/NS 2 GM/100 ML 2 GM/100 ML BAG IV SCH (12:11)
--- NOTE | 2020-11-06 12:41 | Progress Note ---
Assessment and Plan Pt remains intubated, alert when sedation is weaned. In SR. Cont PO amio. Currently weaned off vasopressors. Midodrine initiated per critical care team. 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 Discoloration of toes noted. Per vascular consultation - wean pressors as tolerated and obtain BLE arterial studies, not currently a candidate for revascularization given his overall condition. If he does have any area of thrombosis secondary to his low flow state and HIT, he will require anticoagulation with Argatroban. Replete electrolytes PRN. F/u BMP in AM. Overall guarded prognosis. Cont supportive management. The patient has been seen in conjunction with Dr. Landa who agrees with the assessment and plan of care. - Patient Problems (1) AMS (altered mental status) Current Visit: Yes Status: Acute (2) Atrial fibrillation with RVR Current Visit: Yes Status: Acute (3) Acute respiratory failure Current Visit: Yes Status: Acute (4) Bilateral pneumonia Current Visit: Yes Status: Acute (5) Sepsis Current Visit: Yes Status: Acute (6) Sepsis associated hypotension Current Visit: Yes Status: Acute (7) Sacral decubitus ulcer, stage IV Current Visit: Yes Status: Acute (8) Bacteremia Current Visit: Yes Status: Acute (9) UTI (urinary tract infection) Current Visit: Yes Status: Acute (10) FAZAL (acute kidney injury) Current Visit: Yes Status: Acute (11) Hypomagnesemia Current Visit: Yes Status: Acute (12) Anemia Current Visit: Yes Status: Acute (13) Thrombocytopenia Current Visit: Yes Status: Acute (14) HIT (heparin-induced thrombocytopenia) Current Visit: Yes Status: Suspected Subjective Date of service: 11/06/20 Principal diagnosis: Acute Resp Fail, Septic Shock, Sacral Ulcer, AF with RVR Interval history: pt remains intubated. tele reviewed - in SR HR 90s. currently weaned off vasopressors. Objective Last Vital Signs Temp 98.6 F 11/06/20 12:00 Pulse 94 H 11/06/20 12:00 Resp 31 H 11/06/20 12:00 BP 107/57 11/06/20 12:00 Pulse Ox 98 11/06/20 12:00 - Physical Examination General: Other (intubated) HEENT: Positive: Normocephaly Neck: Positive: neck supple, trachea midline Cardiac: Positive: Reg Rate and Rhythm, S1/S2 Lungs: Positive: Decreased Breath Sounds Neuro: Positive: Other (intubated) Abdomen: Positive: Soft Skin: Positive: Wound. Negative: Rash Musculoskeletal: No Pain Extremities: Present: upper extr. pulses, lower extr. pulses, edema, Other (chronic skin changes noted) - Labs and Meds Cardiac Enzymes 11/06/20 Range/Units 06:45 AST 23 (5-40) units/L CBC 11/06/20 Range/Units 06:45 WBC 15.0 H (4.5-11.0) K/mm3 RBC 2.33 L (3.65-5.03) M/mm3 Hgb 7.2 L (11.8-15.2) gm/dl Hct 22.1 L (35.5-45.6) % Plt Count 103 L (140-440) K/mm3 Comprehensive Metabolic Panel 11/06/20 Range/Units 06:45 Sodium 148 H (137-145) mmol/L Potassium 4.3 D (3.6-5.0) mmol/L Chloride 118.2 H (98-107) mmol/L Carbon Dioxide 25 (22-30) mmol/L BUN 32 H (9-20) mg/dL Creatinine 0.4 L (0.8-1.3) mg/dL Glucose 153 H (75-100) mg/dL Calcium 6.4 L (8.4-10.2) mg/dL AST 23 (5-40) units/L ALT 20 (7-56) units/L Alkaline Phosphatase 117 (35-129) units/L Total Protein 5.0 L (6.3-8.2) g/dL Albumin 1.4 L (3.9-5) g/dL - Imaging and Cardiology EKG: report reviewed, image reviewed Echo: report reviewed (10/28/2020- EF 55-60%, no significant valvular abnormalities) - Telemetry EKG Rhythm: Sinus Rhythm - Allied health notes Allied health notes reviewed: nursing
--- NOTE | 2020-11-06 14:08 | Progress Note ---
Assessment and Plan Assessment and plan: -ID, cardiology, CCM, surgery, vascular surgery, nephrology, WOCN consulted, appreciate recommendations -FAZAL, pneumonia, infected sacral wound, acute respiratory failure, leukocytosis, hypotension requiring vasopressor support -Antibiotic therapy -Trend CBC and BMP -10/26 tracheal aspirate with MRSA, 10/26 blood cultures x2 with Proteus mirabilis, 10/27 urine culture possible contaminant -VAP bundle, CPAP trials as tolerated -Wound care per nursing -Strict intake and output -Daily weights -S/p IVF resuscitation -HIT panel pending -Amiodarone for rate control -Midodrine GI/DVT prophylaxis: Lovenox subq, SCDs to bilateral legs while in bed, PPI Dispo: ICU The high probability of a clinically significant, sudden or life threatening deterioration of the [multi] system(s) required my full and direct attention, intervention and personal management. The aggregate critical care time was [35] minutes. This time is in addition to time spent performing reported procedures but includes the following: [x] Data Review and interpretation [x] Patient assessment and monitoring of vital signs [x] Documentation [x] Medication orders and management History Interval history: This is a 75-year-old male who is a prison resident with seizure disorder, hypertension, depression, hyperlipidemia, hypoglycemia, dysphagia, and encephalopathy who presents to the emergency department on 10/26 via EMS for tachypnea, dry mucous membranes and hypoxia. Patient was hypotensive, febrile to 103 degrees and hypoxic in the emergency department therefore he was int ubated and central IV access was obtained. Patient received 3.5 L of IV fluid in the emergency department. Patient was admitted to the hospital service with consults to CCM, surgery, WOCN and ID for Sepsis, acute kidney injury, urinary tract infection, acute respiratory failure, electrolyte imbalances, infected sacral wound and bilateral pneumonia. Sepsis Acute respiratory failure Infected sacral wound s/p debridement with surgery Anemia s/p 2 units prbc Proteus bacteremia MRSA pneumonia Urine tract infection Acute kidney injury Leukocytosis Hyponatremia Hyperchloremia Hypocalcemia Hypomagnesemia Hypophosphatemia Lactic acidosis 10/27: Patient received additional 4 L LR for fluid resuscitation and CV monitoring was initiated. Patient is on Levophed. ID added Flagyl to vancomycin and cefepime. His trach aspirate grew staph coccus aureus. At the time my examination patient the fentanyl drip was held by RN and he was on 14 MCG of Levophed. This morning he was on assist control 450/20/6/.100. We will give additional bolus of fluids with goal CVP 10-12 and repeat labs in AM. Surge ry was consulted to possible debridement. 10/28: Overnight it was noted that patient went into SVT and he was given adenosine 6 mg/12 mg / 12 mg once and was started on a Cardizem drip after no response to amnio bolus and cardiology was consulted. Currently patient remains on Levophed drip and is hypotensive and received additional 2 L of bolus for goal CVP of 10-12. Infectious disease changed cefepime/Flagyl to meropenem for GNR in his blood cultures 09/04 and will continue vancomycin. Patient currently was not well controlled on max Cardizem and cardiology initiated amiodarone. Patient still is very tachycardic. Patient is hypomagnesemic and we will replete his Mg and recheck level. We will give the patient additional to complete resolve LR this afternoon. Patient has a standing order per [facility] to bolus the patient with LR for CVP goal of 10-12. This morning he is hyperchlormeic, metabolic acidotic (bicarb drip initiated) and his BUN/creatinine slightly elevated. Patient still remains lactic acidotic. 10/29: Patient's blood culture speciated to Proteus and his tracheal aspirate is MRSA. He is currently on ceftriaxone, Flagyl and vancomycin. Patient heart rate consistently is 110-150s and cardiology has given him an amiodarone bolus today and he remains on amiodarone drip. He looks much started on IV digoxin. This morning 4 L LR bolus was ordered and we will bolus an additional 4 L of LR this afternoon. Patient still has lactic acidosis, metabolic acidosis, leukocytosis and hyperchloremia. On examination this morning patient is more edematous and he remains on Levophed and amnio drip. 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 Remains on amio, levo and sedated with fentanyl. He is hypokalemic today which was repleted, h/h 02/18 and he is being type and crossed today with 2 units PRBC ordered to be transfused. Plt drop noted, heparin discontinued and HIT ordered. Bicarb gtt discontinued. No acute events overnight. 10/31: Patient hypomagnesemia today which was repleted and cardiology has changed his IV amiodarone to p.o. Patient will get albumin per [facility]. At the time my examination patient is on assist control 450/20/6/0.40. 11/03: At the time my examination patient is on assist control 450/20/6/0.25 and sedated with fentanyl and on Levophed at 4.Patient's leukocytosis is improving he received Albumin this weekend. Patient is hypokalemic, hypomagnesemic, hypocalcemic today. We will repeat his electrolytes and recheck a BMP in the a.m. Patient received 2 units PRBC on 10/30 and his hemoglobin has been trending down. We will recheck in the a.m. 11/04: At the time of my examination patient was on Levophed 3 mcg and on VZV/CPAP 450/20/6/0.35. Patient still has leukocytosis, respiratory alkalosis, hyponatremia, hypochloremia, hypocalcemia. Today his magnesium and potassium repleted with bolus of potassium 4/magnesium 2. He received 60 mcg KCl p.o., 40 mEq of KCl IV and 2 g of magnesium sulfate. We will recheck BMP and mag and a.m. Surgery has deemed the patient to unstable for further debulking. We also consulted vascular surgery for PVD as patient has discoloration to BLE /feet. 11/05: Vascular surgery will obtain bilateral lower extremity arterial duplex to evaluate arterial flow and recommends adding as FWF to tube feedings in assisting to wean off of vasopressors. Patient has hypokalemia, hypophosp hatemia and normal to low magnesium. Magnesium, potassium and phosphate have been repleted. Patient still remains on ventilator support but on CPAP trial this morning. Patient HIT is still pending. This morning at the time of my examination patient was on assist-control 450/20/6/0.35 and he tolerated CPAP trial for 4 hours yesterday. He was on Levophed 0.5 and his rectal tube output was noted at 1000 mL. 11/06: This morning patient was on a CPAP trial and became hypoxic with SPO2 into the 80s and was switched back to assist control. Patient's vent settings are assist control tidal and 450, rate 20, PEEP 6, FiO2 0.25. Today patient has leukocytosis, hypernatremia, hyperchloremia, hypocalcemia and hypophosphatemia. We will repeat a phosphate. His free water flushes have been increased and his magnesium has been repleted again. Patient has been started on Lovenox given improvement in his platelet count and on midodrine to help keep Levophed off. Infectious disease will continue p.o. vancomycin for total of 10 days. Hospitalist Physical - Constitutional Vitals: Temp Pulse Resp BP Pulse Ox 98.6 F 90 33 H 103/51 98 11/06/20 12:00 11/06/20 14:00 11/06/20 14:00 11/06/20 14:00 11/06/20 14:00 General appearance: Present: no acute distress, other (Intubated, resting comfortably) - EENT Eyes: Present: PERRL ENT: poor dentition - Neck Neck: Present: normal ROM - Respiratory Respiratory effort: normal Respiratory: bilateral: diminished - Cardiovascular Rhythm: regular Heart Sounds: Present: S1 & S2. Absent: systolic murmur, diastolic murmur - Extremities Extremities: no ischemia, pulses intact, pulses symmetrical, normal temperature, normal color Extremity abnormal: edema, cold, pulses diminished Peripheral Pulses: within normal limits - Abdominal General gastrointestinal: soft, non-tender, non-distended, normal bowel sounds - Integumentary Integumentary: Present: warm, dry - Psychiatric Psychiatric: appropriate mood/affect, cooperative - Neurologic Neurologic: CNII-XII intact, no focal deficits - Allied Health Allied health notes reviewed: nursing, RT, social work HEART Score - HEART Score EKG: Non-specific Age: > 65 Risk factors: > 3 risk factors or hx of atherosclerotic disease Troponin: Troponin T 0.062 ng/mL (0.00-0.029) H 10/26/20 17:25 Troponin: < normal limit - Critical Actions Critical Actions: 4-6 pts:12-16.6% risk of adverse cardiac event. Should be admitted Results - Labs CBC & Chem 7: 11/06/20 06:45 11/06/20 06:45 Labs: Laboratory Last Values WBC 15.0 K/mm3 (4.5-11.0) H 11/06/20 06:45 RBC 2.33 M/mm3 (3.65-5.03) L 11/06/20 06:45 Hgb 7.2 gm/dl (11.8-15.2) L 11/06/20 06:45 Hct 22.1 % (35.5-45.6) L 11/06/20 06:45 MCV 95 fl (84-94) H 11/06/20 06:45 MCH 31 pg (28-32) 11/06/20 06:45 MCHC 33 % (32-34) 11/06/20 06:45 RDW 16.2 % (13.2-15.2) H 11/06/20 06:45 Plt Count 103 K/mm3 (140-440) L 11/06/20 06:45 Add Manual Diff Complete 11/02/20 08:40 Total Counted 100 11/02/20 08:40 Seg Neutrophils % Licensed Optical Dispenser 11/02/20 08:40 Seg Neuts % (Manual) 97.0 % (40.0-70.0) H 11/02/20 08:40 Band Neutrophils % 17.0 % 10/27/20 03:30 Lymphocytes % (Manual) 2.0 % (13.4-35.0) L 11/02/20 08:40 Monocytes % (Manual) 1.0 % (0.0-7.3) 11/02/20 08:40 Eosinophils % (Manual) 2.0 % (0.0-4.3) 10/27/20 03:30 Metamyelocytes % 4.0 % 10/27/20 03:30 Nucleated RBC % 1.0 % (0.0-0.9) H 11/02/20 08:40 Seg Neutrophils # Man 16.1 K/mm3 (1.8-7.7) H 11/02/20 08:40 Band Neutrophils # 0.0 K/mm3 11/02/20 08:40 Lymphocytes # (Manual) 0.3 K/mm3 (1.2-5.4) L 11/02/20 08:40 Abs React Lymphs (Man) 0.0 K/mm3 11/02/20 08:40 Monocytes # (Manual) 0.2 K/mm3 (0.0-0.8) 11/02/20 08:40 Eosinophils # (Manual) 0.0 K/mm3 (0.0-0.4) 11/02/20 08:40 Basophils # (Manual) 0.0 K/mm3 (0.0-0.1) 11/02/20 08:40 Metamyelocytes # 0.0 K/mm3 11/02/20 08:40 Myelocytes # 0.0 K/mm3 11/02/20 08:40 Promyelocytes # 0.0 K/mm3 11/02/20 08:40 Blast Cells # 0.0 K/mm3 11/02/20 08:40 WBC Morphology Not Reportable 11/02/20 08:40 Hypersegmented Neuts Not Reportable 11/02/20 08:40 Hyposegmented Neuts Not Reportable 11/02/20 08:40 Hypogranular Neuts Not Reportable 11/02/20 08:40 Smudge Cells Not Reportable 11/02/20 08:40 Toxic Granulation Not Reportable 11/02/20 08:40 Toxic Vacuolation Not Reportable 11/02/20 08:40 Dohle Bodies Not Reportable 11/02/20 08:40 Pelger-Huet Anomaly Not Reportable 11/02/20 08:40 Kassi Rods Not Reportable 11/02/20 08:40 Platelet Estimate Consistent w auto 11/02/20 08:40 Clumped Platelets Not Reportable 11/02/20 08:40 Plt Clumps, EDTA Not Reportable 11/02/20 08:40 Large Platelets Not Reportable 11/02/20 08:40 Giant Platelets Not Reportable 11/02/20 08:40 Platelet Satelliting Not Reportable 11/02/20 08:40 Plt Morphology Comment Not Reportable 11/02/20 08:40 RBC Morphology Normal 11/02/20 08:40 Dimorphic RBCs Not Reportable 11/02/20 08:40 Polychromasia Not Reportable 11/02/20 08:40 Hypochromasia Not Reportable 11/02/20 08:40 Poikilocytosis Not Reportable 11/02/20 08:40 Anisocytosis Not Reportable 11/02/20 08:40 Microcytosis Not Reportable 11/02/20 08:40 Macrocytosis Not Reportable 11/02/20 08:40 Spherocytes Not Reportable 11/02/20 08:40 Pappenheimer Bodies Not Reportable 11/02/20 08:40 Sickle Cells Not Reportable 11/02/20 08:40 Target Cells Not Reportable 11/02/20 08:40 Tear Drop Cells Not Reportable 11/02/20 08:40 Ovalocytes Not Reportable 11/02/20 08:40 Helmet Cells Not Reportable 11/02/20 08:40 [place] Bodies Not Reportable 11/02/20 08:40 Velarde Rings Not Reportable 11/02/20 08:40 Wendell Cells Not Reportable 11/02/20 08:40 Bite Cells Not Reportable 11/02/20 08:40 Crenated Cell Not Reportable 11/02/20 08:40 Elliptocytes Not Reportable 11/02/20 08:40 Acanthocytes (Spur) Not Reportable 11/02/20 08:40 Rouleaux Not Reportable 11/02/20 08:40 Hemoglobin C Crystals Not Reportable 11/02/20 08:40 Schistocytes Not Reportable 11/02/20 08:40 Malaria parasites Not Reportable 11/02/20 08:40 Richard Bodies Not Reportable 11/02/20 08:40 Hem Pathologist Commnt No 11/02/20 08:40 APTT 27.9 Sec. (24.2-36.6) 10/26/20 17:25 ABG pH 7.525 (7.320-7.450) H 11/04/20 11:42 POC ABG pCO2 28.9 mmHg (32.0-48.0) L 11/04/20 11:42 ABG pCO2 35.7 mm Hg 11/02/20 04:30 POC ABG pO2 64.3 mmHg (83-108) L 11/04/20 11:42 ABG pO2 88.3 mm Hg (80.0-90.0) 11/02/20 04:30 POC ABG HCO3 23.3 11/04/20 11:42 ABG HCO3 24.6 mmol/L (20.0-26.0) 11/02/20 04:30 ABG O2 Saturation 95 (0-100) 11/04/20 11:42 ABG O2 Content 12.4 (0.0-44) 11/02/20 04:30 POC ABG Base Excess 0.9 11/04/20 11:42 ABG Base Excess 0.8 mmol/L (-2.0-3.0) 11/02/20 04:30 ABG Hemoglobin 8.2 (12.0-17.5) L 11/04/20 11:42 ABG Oxyhemoglobin 94 (94-98) 11/04/20 11:42 ABG Carboxyhemoglobin 1.4 % (0.0-5.0) 11/02/20 04:30 ABG Methemoglobin 0.1 (0.0-1.5) 11/04/20 11:42 ABG Sodium 142.4 mmol/L (136.0-145.0) 11/04/20 11:42 ABG Potassium 3.3 mmol/L (3.40-4.50) L 11/04/20 11:42 ABG Chloride 115.0 mmol/L (98-107) H 11/04/20 11:42 ABG Glucose 165 mg/dL (65-95) H 11/04/20 11:42 Oxyhemoglobin 95.3 % (95.0-99.0) 11/02/20 04:30 Carboxyhemoglobin 1 (0.5-1.5) 11/04/20 11:42 FiO2 35 % 11/02/20 04:30 FiO2 % 35 11/04/20 11:42 Sodium 148 mmol/L (137-145) H 11/06/20 06:45 Potassium 4.3 mmol/L (3.6-5.0) D 11/06/20 06:45 Chloride 118.2 mmol/L (98-107) H 11/06/20 06:45 Carbon Dioxide 25 mmol/L (22-30) 11/06/20 06:45 Anion Gap 9 mmol/L 11/06/20 06:45 BUN 32 mg/dL (9-20) H 11/06/20 06:45 Creatinine 0.4 mg/dL (0.8-1.3) L 11/06/20 06:45 Estimated GFR > 60 ml/min 11/06/20 06:45 BUN/Creatinine Ratio 80 % 11/06/20 06:45 Glucose 153 mg/dL (75-100) H 11/06/20 06:45 POC Glucose 132 mg/dL (70-105) H 11/06/20 11:32 Hemoglobin A1c 5.5 % (4-6) 10/27/20 04:42 Lactic Acid 4.30 mmol/L (0.7-2.0) H* 10/31/20 Unknown Calcium 6.4 mg/dL (8.4-10.2) L 11/06/20 06:45 Phosphorus 0.90 mg/dL (2.5-4.5) L* D 11/06/20 06:45 Magnesium 1.80 mg/dL (1.7-2.3) 11/06/20 06:45 Total Bilirubin < 0.20 mg/dL (0.1-1.2) 11/06/20 06:45 AST 23 units/L (5-40) 11/06/20 06:45 ALT 20 units/L (7-56) 11/06/20 06:45 Alkaline Phosphatase 117 units/L (35-129) 11/06/20 06:45 Total Creatine Kinase 31 units/L (55-170) L 10/26/20 17:28 Troponin T 0.062 ng/mL (0.00-0.029) H 10/26/20 17:25 Total Protein 5.0 g/dL (6.3-8.2) L 11/06/20 06:45 Albumin 1.4 g/dL (3.9-5) L 11/06/20 06:45 Albumin/Globulin Ratio 0.4 % 11/06/20 06:45 Triglycerides 190 mg/dL (2-149) H 10/26/20 17:25 Cholesterol 92 mg/dL (50-199) 10/26/20 17:25 LDL Cholesterol Direct 33 mg/dL (50-130) L 10/26/20 17:25 HDL Cholesterol 18 mg/dL (40-59) L 10/26/20 17:25 Cholesterol/HDL Ratio 5.11 % 10/26/20 17:25 TSH 1.490 mlU/mL (0.270-4.200) 10/26/20 17:28 Arterial Blood Glucose 165 mg/dL (65-95) H 11/04/20 11:42 Arterial Blood Ionized Calcium 4.0 mg/dL (4.6-5.3) L 11/04/20 11:42 Urine Color Yellow (Yellow) 10/27/20 Unknown Urine Turbidity Turbid (Clear) 10/27/20 Unknown Urine pH 8.0 (5.0-7.0) H 10/27/20 Unknown Ur Specific [place] 1.020 (1.003-1.030) 10/27/20 Unknown Urine Protein >500 mg/dL (Negative) 10/27/20 Unknown Urine Glucose (UA) Neg mg/dL (Negative) 10/27/20 Unknown Urine Ketones Neg mg/dL (Negative) 10/27/20 Unknown Urine Blood Sm (Negative) 10/27/20 Unknown Urine Nitrite Neg (Negative) 10/27/20 Unknown Urine Bilirubin Neg (Negative) 10/27/20 Unknown Urine Urobilinogen < 2.0 mg/dL (<2.0) 10/27/20 Unknown Ur Leukocyte Esterase Mod (Negative) 10/27/20 Unknown Urine WBC (Auto) > 182.0 /HPF (0.0-6.0) H 10/27/20 Unknown Urine RBC (Auto) 35.0 /HPF (0.0-6.0) 10/27/20 Unknown Urine WBC Clumps 3+ /HPF 10/27/20 Unknown Urine Mucus 3+ /HPF 10/27/20 Unknown Urine Yeast (Budding) 3+ /HPF 10/27/20 Unknown Vancomycin Trough 22.0 ug/mL (5.0-20.0) H 10/30/20 Unknown Salicylates < 0.3 mg/dL (2.8-20.0) L 10/26/20 17:28 Acetaminophen 5.0 ug/mL (10.0-30.0) L 10/26/20 17:28 Coronavirus (PCR) Negative (Negative) 10/27/20 Unknown Blood Type O POSITIVE 10/30/20 09:30 Antibody Screen Negative 10/30/20 09:30 Crossmatch See Detail 10/30/20 09:30 Microbiology: Microbiology 11/06/20 08:17 Stool - Stool Aspirate Stool Occult Blood (ELVER) - Final Rivas/IV: Voiding Method Indwelling Catheter Active Medications - Current Medications Current Medications: Generic Name Dose Route Start Last Admin Trade Name Freq PRN Reason Stop Dose Admin Acetaminophen 650 mg 10/26/20 22:22 11/04/20 21:43 Acetaminophen 325 Mg Tab PO 650 mg Q4H PRN Administration Pain MILD(1-3)/Fever >100.5/TIERNEY Amiodarone HCl 200 mg 10/31/20 12:00 11/06/20 09:05 Amiodarone 200 Mg Tab PO 200 mg BID MARSHALL Administration Lipase/Protease/Amylase 1 each 10/28/20 13:18 Lipase 10,500/Protease 25,000/Amylase 43,750 (Units) Dr Cap FEEDTUBE PRN PRN For Clogged Feeding Tube Enoxaparin Sodium 30 mg 11/07/20 10:00 Enoxaparin 30 Mg/0.3 Ml Inj SUB-Q QDAY [facility] Protocol Famotidine 20 mg 10/28/20 10:00 11/06/20 09:05 Famotidine 20 Mg/2 Ml Inj IV 20 mg BID MARSHALL Administration Fentanyl 50 mcg 10/26/20 17:25 11/04/20 18:12 Fentanyl 100 Mcg/2 Ml Inj IV 50 mcg Q10MIN PRN Administration ANALGESIA Fentanyl 50 mcg 10/27/20 10:39 11/06/20 09:05 Fentanyl 100 Mcg/2 Ml Inj IV 50 mcg Q2H PRN Administration Pain , Severe (7-10) Hydrophilic Ointment 1 applic 10/26/20 17:25 Lip Therapy Vaseline TP Q2HR PRN Dry Lips Norepinephrine 4 mg in 250 mls @ 112.5 mls/hr 10/28/20 01:00 11/06/20 01:06 Levophed Drip 4 Mg/Ns 250 Ml IV 0 mcg/min TITR MARSHALL 0 mls/hr Titration Protocol 30 MCG/MIN Vasopressin 20 unit/ Sodium 101 mls @ 9.09 mls/hr 10/28/20 16:00 Chloride IV TITR MARSHALL Protocol 0.03 UNITS/MIN Ceftriaxone Sodium 2 gm in 100 mls @ 200 mls/hr 10/29/20 13:00 11/06/20 12:11 Rocephin/Ns 2 Gm/100 Ml IV 11/12/20 13:29 200 mls/hr Q24H MARSHALL Administration Protocol Metronidazole 500 mg in 100 mls @ 100 mls/hr 10/29/20 14:00 11/06/20 07:39 Flagyl 500 Mg/100 Ml IV 11/12/20 14:59 Not Given Q8H [facility] Protocol Midodrine 10 mg 11/06/20 12:00 11/06/20 11:53 Midodrine 5 Mg Tab PO 10 mg TID@0800,1200,1600 MARSHALL Administration Multi-Ingred Cream/Lotion/Oil/Oint 1 applic 03/28/21 17:25 Mineral Oil/Petrolatum, White Ophth Oint 3.5 Gm OU Q4HR PRN Dry Eye(s) Ondansetron HCl 4 mg 10/26/20 22:22 Ondansetron 4 Mg/2 Ml Inj IV Q8H PRN Nausea And Vomiting Simple Syrup 15 ml 10/28/20 13:18 Simple Syrup 15 Ml FEEDTUBE PRN PRN Hypoglycemia Simple Syrup 30 ml 10/28/20 13:18 Simple Syrup 15 Ml FEEDTUBE PRN PRN Hypoglycemia Sodium Bicarbonate 325 mg 10/28/20 13:18 Sodium Bicarbonate 325 Mg Tab FEEDTUBE PRN PRN For Clogged Feeding Tube Sodium Chloride 5 ml 10/26/20 17:25 Sodium Chloride 0.9% 500 Ml Ivpb IV DIRECT PRN [employer]END[employer] Sodium Chloride 10 ml 10/27/20 10:00 11/06/20 09:06 Sodium Chloride 0.9% 10 Ml Flush Syringe IV 10 ml BID MARSHALL Administration Sodium Chloride 10 ml 10/26/20 22:22 Sodium Chloride 0.9% 10 Ml Flush Syringe IV PRN PRN LINE FLUSH Sodium Hypochlorite 1 applic 10/28/20 10:00 11/06/20 09:06 Sodium Hypochlorite, Dakin's 1/2 Strength (0.25%) 473 Ml Topical Soln TP 1 applicatio BID MARSHALL Administration Vancomycin HCl 125 mg 11/05/20 18:00 11/06/20 11:49 Vancomycin 250 Mg/10 Ml Oral Liqd PO 125 mg Q6HR MARSHALL Administration Protocol Nutrition/Malnutrition Assess - Dietary Evaluation Nutrition/Malnutrition Findings: Nutrition Notes Start: 10/27/20 09:15 Freq: Status: Active Protocol: Document 11/06/20 12:28 CW (Rec: 11/06/20 12:35 CW [id number]) Nutrition Notes Initial or Follow up Brief Note Current Diagnosis Acute Kidney Injury,Decubitus( Pressure Ulcer),Sepsis, Hypertension,Respiratory Failure,Hyperlipidemia Other Pertinent Diagnosis AMS, MRSA, Encephalopathy, Metabiloc Acidosis, pneu ,FTT Current Diet Vital HP at 80 ml/hr Labs/Tests Na 148 BUN 32 BG 143 P 0.9 Pertinent Medications Na3PO4 Height 6 ft 2 in Weight 135 kg [place] Body Weight (kg) 86.36 BMI 38.2 Weight change and time frame Weight stable at this time Weight Status Obese Subjective/Other Information MD verbally requested increase of free water flush d/t hypernatremia. PT remains on mechanical vent. TF still being well tolerated. Percent of energy/protein needs met: 100%/100% Burn Absent Trauma Absent Nutrition Intervention Change Diet Order: Continue TF regime, Increase flush Nutrition Support: Vital HP at 80 ml/hr with a free water flush of 150 ml q4h Kcal 1,920 Protein (gm) 168 Fluid (mL) 1,605 Follow-Up By: 11/11/20 Additional Comments bed continues to rotate patient
[2020-11-06] MEDS ORDERED: SODIUM PHOSPHATE 30 MMOL in SODIUM CHLORIDE 0.9% 500 ML 250 ML IV ONE (16:00)
[2020-11-07] MEDS: VANCOMYCIN 250 MG/10 ML ORAL LIQD PO SCH ×4 (00:10→18:16)
[2020-11-07] MEDS: metroNIDAZOLE/NS 500 MG/100 ML 500 MG/100 ML BAG IV SCH ×3 (05:33→21:22)
[2020-11-07] MEDS: ENOXAPARIN 40 MG/0.4 ML INJ SUB-Q SCH (09:23)
[2020-11-07] MEDS: AMIODARONE 200 MG TAB PO SCH (09:23)
[2020-11-07] MEDS: MIDODRINE 5 MG TAB PO SCH ×3 (09:23→18:16)
[2020-11-07] MEDS: FAMOTIDINE 20 MG/2 ML INJ IV SCH ×2 (09:23→21:23)
[2020-11-07] MEDS: SODIUM HYPOCHLORITE, DAKIN'S 1/2 STRENGTH (0.25%) 473 ML TOPICAL SOLN TP SCH ×2 (09:24→21:22)
[2020-11-07] MEDS ORDERED: ENOXAPARIN 30 MG/0.3 ML INJ SUB-Q SCH (10:00)
--- NOTE | 2020-11-07 10:34 | Progress Note ---
Assessment and Plan Assessment and plan: -ID, cardiology, CCM, surgery, vascular surgery, nephrology, WOCN consulted, appreciate recommendations -FAZAL, pneumonia, infected sacral wound, acute respiratory failure, leukocytosis, hypotension requiring vasopressor support -Antibiotic therapy -Trend CBC and BMP -10/26 tracheal aspirate with MRSA, 10/26 blood cultures x2 with Proteus mirabilis, 10/27 urine culture possible contaminant -VAP bundle, CPAP trials as tolerated -Wound care per nursing -Strict intake and output -Daily weights -S/p IVF resuscitation -HIT panel pending -Amiodarone for rate control -Midodrine GI/DVT prophylaxis: Lovenox subq, SCDs to bilateral legs while in bed, PPI Dispo: ICU The high probability of a clinically significant, sudden or life threatening deterioration of the [multi] system(s) required my full and direct attention, intervention and personal management. The aggregate critical care time was [35] minutes. This time is in addition to time spent performing reported procedures but includes the following: [x] Data Review and interpretation [x] Patient assessment and monitoring of vital signs [x] Documentation [x] Medication orders and management History Interval history: This is a 75-year-old male who is a longterm resident with seizure disorder, hypertension, depression, hyperlipidemia, hypoglycemia, dysphagia, and encephalopathy who presents to the emergency department on 10/26 via EMS for tachypnea, dry mucous membranes and hypoxia. Patient was hypotensive, febrile to 103 degrees and hypoxic in the emergency department therefore he was int ubated and central IV access was obtained. Patient received 3.5 L of IV fluid in the emergency department. Patient was admitted to the hospital service with consults to CCM, surgery, WOCN and ID for Sepsis, acute kidney injury, urinary tract infection, acute respiratory failure, electrolyte imbalances, infected sacral wound and bilateral pneumonia. Sepsis Acute respiratory failure Infected sacral wound s/p debridement with surgery Anemia s/p 2 units prbc Proteus bacteremia MRSA pneumonia Urine tract infection Acute kidney injury Leukocytosis Hyponatremia Hyperchloremia Hypocalcemia Hypomagnesemia Hypophosphatemia Lactic acidosis 10/27: Patient received additional 4 L LR for fluid resuscitation and CV monitoring was initiated. Patient is on Levophed. ID added Flagyl to vancomycin and cefepime. His trach aspirate grew staph coccus aureus. At the time my examination patient the fentanyl drip was held by RN and he was on 14 MCG of Levophed. This morning he was on assist control 450/20/6/.100. We will give additional bolus of fluids with goal CVP 10-12 and repeat labs in AM. Surge ry was consulted to possible debridement. 10/28: Overnight it was noted that patient went into SVT and he was given adenosine 6 mg/12 mg / 12 mg once and was started on a Cardizem drip after no response to amnio bolus and cardiology was consulted. Currently patient remains on Levophed drip and is hypotensive and received additional 2 L of bolus for goal CVP of 10-12. Infectious disease changed cefepime/Flagyl to meropenem for GNR in his blood cultures 09/04 and will continue vancomycin. Patient currently was not well controlled on max Cardizem and cardiology initiated amiodarone. Patient still is very tachycardic. Patient is hypomagnesemic and we will replete his Mg and recheck level. We will give the patient additional to complete resolve LR this afternoon. Patient has a standing order per [facility] to bolus the patient with LR for CVP goal of 10-12. This morning he is hyperchlormeic, metabolic acidotic (bicarb drip initiated) and his BUN/creatinine slightly elevated. Patient still remains lactic acidotic. 10/29: Patient's blood culture speciated to Proteus and his tracheal aspirate is MRSA. He is currently on ceftriaxone, Flagyl and vancomycin. Patient heart rate consistently is 110-150s and cardiology has given him an amiodarone bolus today and he remains on amiodarone drip. He looks much started on IV digoxin. This morning 4 L LR bolus was ordered and we will bolus an additional 4 L of LR this afternoon. Patient still has lactic acidosis, metabolic acidosis, leukocytosis and hyperchloremia. On examination this morning patient is more edematous and he remains on Levophed and amnio drip. 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 Remains on amio, levo and sedated with fentanyl. He is hypokalemic today which was repleted, h/h 02/18 and he is being type and crossed today with 2 units PRBC ordered to be transfused. Plt drop noted, heparin discontinued and HIT ordered. Bicarb gtt discontinued. No acute events overnight. 10/31: Patient hypomagnesemia today which was repleted and cardiology has changed his IV amiodarone to p.o. Patient will get albumin per [facility]. At the time my examination patient is on assist control 450/20/6/0.40. 11/03: At the time my examination patient is on assist control 450/20/6/0.25 and sedated with fentanyl and on Levophed at 4.Patient's leukocytosis is improving he received Albumin this weekend. Patient is hypokalemic, hypomagnesemic, hypocalcemic today. We will repeat his electrolytes and recheck a BMP in the a.m. Patient received 2 units PRBC on 10/30 and his hemoglobin has been trending down. We will recheck in the a.m. 11/04: At the time of my examination patient was on Levophed 3 mcg and on VZV/CPAP 450/20/6/0.35. Patient still has leukocytosis, respiratory alkalosis, hyponatremia, hypochloremia, hypocalcemia. Today his magnesium and potassium repleted with bolus of potassium 4/magnesium 2. He received 60 mcg KCl p.o., 40 mEq of KCl IV and 2 g of magnesium sulfate. We will recheck BMP and mag and a.m. Surgery has deemed the patient to unstable for further debulking. We also consulted vascular surgery for PVD as patient has discoloration to BLE /feet. 11/05: Vascular surgery will obtain bilateral lower extremity arterial duplex to evaluate arterial flow and recommends adding as FWF to tube feedings in assisting to wean off of vasopressors. Patient has hypokalemia, hypophosp hatemia and normal to low magnesium. Magnesium, potassium and phosphate have been repleted. Patient still remains on ventilator support but on CPAP trial this morning. Patient HIT is still pending. This morning at the time of my examination patient was on assist-control 450/20/6/0.35 and he tolerated CPAP trial for 4 hours yesterday. He was on Levophed 0.5 and his rectal tube output was noted at 1000 mL. 11/06: This morning patient was on a CPAP trial and became hypoxic with SPO2 into the 80s and was switched back to assist control. Patient's vent settings are assist control tidal and 450, rate 20, PEEP 6, FiO2 0.25. Today patient has leukocytosis, hypernatremia, hyperchloremia, hypocalcemia and hypophosphatemia. We will repeat a phosphate. His free water flushes have been increased and his magnesium has been repleted again. Patient has been started on Lovenox given improvement in his platelet count and on midodrine to help keep Levophed off. Infectious disease will continue p.o. vancomycin for total of 10 days. 11/07: Patient failed his CPAP trial yesterday and has been placed on CPAP 05/06 again this morning by RT. Overnight patient was rested on assist control tolerance by 50, rate of 20, pressure support 6 and FiO2 30%. His lab work is still pending for this morning. On repeat his phosphorus was 4.50 yesterday and repletion was discontinued. Hospitalist Physical - Constitutional Vitals: Temp Pulse Resp BP Pulse Ox 97.9 F 77 29 H 94/46 100 11/07/20 08:00 11/07/20 08:16 11/07/20 08:16 11/07/20 08:16 11/07/20 08:16 General appearance: Present: no acute distress, other (Intubated, resting comfortably) - EENT Eyes: Present: PERRL - Neck Neck: Present: normal ROM - Respiratory Respiratory effort: normal Respiratory: bilateral: CTA - Cardiovascular Rhythm: regular Heart Sounds: Present: S1 & S2. Absent: systolic murmur, diastolic murmur - Extremities Extremities: no ischemia, pulses intact, pulses symmetrical, normal temperature, normal color Extremity abnormal: edema Peripheral Pulses: within normal limits - Abdominal General gastrointestinal: soft, non-tender, non-distended, normal bowel sounds - Integumentary Integumentary: Present: warm, dry - Psychiatric Psychiatric: cooperative - Neurologic Neurologic: CNII-XII intact, no focal deficits, moves all extremities - Allied Health Allied health notes reviewed: nursing, RT, social work HEART Score - HEART Score EKG: Non-specific Age: > 65 Risk factors: > 3 risk factors or hx of atherosclerotic disease Troponin: Troponin T 0.062 ng/mL (0.00-0.029) H 10/26/20 17:25 Troponin: < normal limit - Critical Actions Critical Actions: 4-6 pts:12-16.6% risk of adverse cardiac event. Should be admitted Results - Labs CBC & Chem 7: 11/06/20 06:45 11/06/20 06:45 Labs: Laboratory Last Values WBC 15.0 K/mm3 (4.5-11.0) H 11/06/20 06:45 RBC 2.33 M/mm3 (3.65-5.03) L 11/06/20 06:45 Hgb 7.2 gm/dl (11.8-15.2) L 11/06/20 06:45 Hct 22.1 % (35.5-45.6) L 11/06/20 06:45 MCV 95 fl (84-94) H 11/06/20 06:45 MCH 31 pg (28-32) 11/06/20 06:45 MCHC 33 % (32-34) 11/06/20 06:45 RDW 16.2 % (13.2-15.2) H 11/06/20 06:45 Plt Count 103 K/mm3 (140-440) L 11/06/20 06:45 Add Manual Diff Complete 11/02/20 08:40 Total Counted 100 11/02/20 08:40 Seg Neutrophils % Banking Paralegal 11/02/20 08:40 Seg Neuts % (Manual) 97.0 % (40.0-70.0) H 11/02/20 08:40 Band Neutrophils % 17.0 % 10/27/20 03:30 Lymphocytes % (Manual) 2.0 % (13.4-35.0) L 11/02/20 08:40 Monocytes % (Manual) 1.0 % (0.0-7.3) 11/02/20 08:40 Eosinophils % (Manual) 2.0 % (0.0-4.3) 10/27/20 03:30 Metamyelocytes % 4.0 % 10/27/20 03:30 Nucleated RBC % 1.0 % (0.0-0.9) H 11/02/20 08:40 Seg Neutrophils # Man 16.1 K/mm3 (1.8-7.7) H 11/02/20 08:40 Band Neutrophils # 0.0 K/mm3 11/02/20 08:40 Lymphocytes # (Manual) 0.3 K/mm3 (1.2-5.4) L 11/02/20 08:40 Abs React Lymphs (Man) 0.0 K/mm3 11/02/20 08:40 Monocytes # (Manual) 0.2 K/mm3 (0.0-0.8) 11/02/20 08:40 Eosinophils # (Manual) 0.0 K/mm3 (0.0-0.4) 11/02/20 08:40 Basophils # (Manual) 0.0 K/mm3 (0.0-0.1) 11/02/20 08:40 Metamyelocytes # 0.0 K/mm3 11/02/20 08:40 Myelocytes # 0.0 K/mm3 11/02/20 08:40 Promyelocytes # 0.0 K/mm3 11/02/20 08:40 Blast Cells # 0.0 K/mm3 11/02/20 08:40 WBC Morphology Not Reportable 11/02/20 08:40 Hypersegmented Neuts Not Reportable 11/02/20 08:40 Hyposegmented Neuts Not Reportable 11/02/20 08:40 Hypogranular Neuts Not Reportable 11/02/20 08:40 Smudge Cells Not Reportable 11/02/20 08:40 Toxic Granulation Not Reportable 11/02/20 08:40 Toxic Vacuolation Not Reportable 11/02/20 08:40 Dohle Bodies Not Reportable 11/02/20 08:40 Pelger-Huet Anomaly Not Reportable 11/02/20 08:40 Kassi Rods Not Reportable 11/02/20 08:40 Platelet Estimate Consistent w auto 11/02/20 08:40 Clumped Platelets Not Reportable 11/02/20 08:40 Plt Clumps, EDTA Not Reportable 11/02/20 08:40 Large Platelets Not Reportable 11/02/20 08:40 Giant Platelets Not Reportable 11/02/20 08:40 Platelet Satelliting Not Reportable 11/02/20 08:40 Plt Morphology Comment Not Reportable 11/02/20 08:40 RBC Morphology Normal 11/02/20 08:40 Dimorphic RBCs Not Reportable 11/02/20 08:40 Polychromasia Not Reportable 11/02/20 08:40 Hypochromasia Not Reportable 11/02/20 08:40 Poikilocytosis Not Reportable 11/02/20 08:40 Anisocytosis Not Reportable 11/02/20 08:40 Microcytosis Not Reportable 11/02/20 08:40 Macrocytosis Not Reportable 11/02/20 08:40 Spherocytes Not Reportable 11/02/20 08:40 Pappenheimer Bodies Not Reportable 11/02/20 08:40 Sickle Cells Not Reportable 11/02/20 08:40 Target Cells Not Reportable 11/02/20 08:40 Tear Drop Cells Not Reportable 11/02/20 08:40 Ovalocytes Not Reportable 11/02/20 08:40 Helmet Cells Not Reportable 11/02/20 08:40 [place] Bodies Not Reportable 11/02/20 08:40 [place] Rings Not Reportable 11/02/20 08:40 Rhea Cells Not Reportable 11/02/20 08:40 Bite Cells Not Reportable 11/02/20 08:40 Crenated Cell Not Reportable 11/02/20 08:40 Elliptocytes Not Reportable 11/02/20 08:40 Acanthocytes (Spur) Not Reportable 11/02/20 08:40 Rouleaux Not Reportable 11/02/20 08:40 Hemoglobin C Crystals Not Reportable 11/02/20 08:40 Schistocytes Not Reportable 11/02/20 08:40 Malaria parasites Not Reportable 11/02/20 08:40 Richard Bodies Not Reportable 11/02/20 08:40 Hem Pathologist Commnt No 11/02/20 08:40 APTT 27.9 Sec. (24.2-36.6) 10/26/20 17:25 ABG pH 7.525 (7.320-7.450) H 11/04/20 11:42 POC ABG pCO2 28.9 mmHg (32.0-48.0) L 11/04/20 11:42 ABG pCO2 35.7 mm Hg 11/02/20 04:30 POC ABG pO2 64.3 mmHg (83-108) L 11/04/20 11:42 ABG pO2 88.3 mm Hg (80.0-90.0) 11/02/20 04:30 POC ABG HCO3 23.3 11/04/20 11:42 ABG HCO3 24.6 mmol/L (20.0-26.0) 11/02/20 04:30 ABG O2 Saturation 95 (0-100) 11/04/20 11:42 ABG O2 Content 12.4 (0.0-44) 11/02/20 04:30 POC ABG Base Excess 0.9 11/04/20 11:42 ABG Base Excess 0.8 mmol/L (-2.0-3.0) 11/02/20 04:30 ABG Hemoglobin 8.2 (12.0-17.5) L 11/04/20 11:42 ABG Oxyhemoglobin 94 (94-98) 11/04/20 11:42 ABG Carboxyhemoglobin 1.4 % (0.0-5.0) 11/02/20 04:30 ABG Methemoglobin 0.1 (0.0-1.5) 11/04/20 11:42 ABG Sodium 142.4 mmol/L (136.0-145.0) 11/04/20 11:42 ABG Potassium 3.3 mmol/L (3.40-4.50) L 11/04/20 11:42 ABG Chloride 115.0 mmol/L (98-107) H 11/04/20 11:42 ABG Glucose 165 mg/dL (65-95) H 11/04/20 11:42 Oxyhemoglobin 95.3 % (95.0-99.0) 11/02/20 04:30 Carboxyhemoglobin 1 (0.5-1.5) 11/04/20 11:42 FiO2 35 % 11/02/20 04:30 FiO2 % 35 11/04/20 11:42 Sodium 148 mmol/L (137-145) H 11/06/20 06:45 Potassium 4.3 mmol/L (3.6-5.0) D 11/06/20 06:45 Chloride 118.2 mmol/L (98-107) H 11/06/20 06:45 Carbon Dioxide 25 mmol/L (22-30) 11/06/20 06:45 Anion Gap 9 mmol/L 11/06/20 06:45 BUN 32 mg/dL (9-20) H 11/06/20 06:45 Creatinine 0.4 mg/dL (0.8-1.3) L 11/06/20 06:45 Estimated GFR > 60 ml/min 11/06/20 06:45 BUN/Creatinine Ratio 80 % 11/06/20 06:45 Glucose 153 mg/dL (75-100) H 11/06/20 06:45 POC Glucose 102 mg/dL (70-105) 11/07/20 06:21 Hemoglobin A1c 5.5 % (4-6) 10/27/20 04:42 Lactic Acid 4.30 mmol/L (0.7-2.0) H* 10/31/20 Unknown Calcium 6.4 mg/dL (8.4-10.2) L 11/06/20 06:45 Phosphorus 4.50 mg/dL (2.5-4.5) D 11/06/20 13:03 Magnesium 1.80 mg/dL (1.7-2.3) 11/06/20 06:45 Total Bilirubin < 0.20 mg/dL (0.1-1.2) 11/06/20 06:45 AST 23 units/L (5-40) 11/06/20 06:45 ALT 20 units/L (7-56) 11/06/20 06:45 Alkaline Phosphatase 117 units/L (35-129) 11/06/20 06:45 Total Creatine Kinase 31 units/L (55-170) L 10/26/20 17:28 Troponin T 0.062 ng/mL (0.00-0.029) H 10/26/20 17:25 Total Protein 5.0 g/dL (6.3-8.2) L 11/06/20 06:45 Albumin 1.4 g/dL (3.9-5) L 11/06/20 06:45 Albumin/Globulin Ratio 0.4 % 11/06/20 06:45 Triglycerides 190 mg/dL (2-149) H 10/26/20 17:25 Cholesterol 92 mg/dL (50-199) 10/26/20 17:25 LDL Cholesterol Direct 33 mg/dL (50-130) L 10/26/20 17:25 HDL Cholesterol 18 mg/dL (40-59) L 10/26/20 17:25 Cholesterol/HDL Ratio 5.11 % 10/26/20 17:25 TSH 1.490 mlU/mL (0.270-4.200) 10/26/20 17:28 Arterial Blood Glucose 165 mg/dL (65-95) H 11/04/20 11:42 Arterial Blood Ionized Calcium 4.0 mg/dL (4.6-5.3) L 11/04/20 11:42 Urine Color Yellow (Yellow) 10/27/20 Unknown Urine Turbidity Turbid (Clear) 10/27/20 Unknown Urine pH 8.0 (5.0-7.0) H 10/27/20 Unknown Ur Specific [place] 1.020 (1.003-1.030) 10/27/20 Unknown Urine Protein >500 mg/dL (Negative) 10/27/20 Unknown Urine Glucose (UA) Neg mg/dL (Negative) 10/27/20 Unknown Urine Ketones Neg mg/dL (Negative) 10/27/20 Unknown Urine Blood Sm (Negative) 10/27/20 Unknown Urine Nitrite Neg (Negative) 10/27/20 Unknown Urine Bilirubin Neg (Negative) 10/27/20 Unknown Urine Urobilinogen < 2.0 mg/dL (<2.0) 10/27/20 Unknown Ur Leukocyte Esterase Mod (Negative) 10/27/20 Unknown Urine WBC (Auto) > 182.0 /HPF (0.0-6.0) H 10/27/20 Unknown Urine RBC (Auto) 35.0 /HPF (0.0-6.0) 10/27/20 Unknown Urine WBC Clumps 3+ /HPF 10/27/20 Unknown Urine Mucus 3+ /HPF 10/27/20 Unknown Urine Yeast (Budding) 3+ /HPF 10/27/20 Unknown Vancomycin Trough 22.0 ug/mL (5.0-20.0) H 10/30/20 Unknown Salicylates < 0.3 mg/dL (2.8-20.0) L 10/26/20 17:28 Acetaminophen 5.0 ug/mL (10.0-30.0) L 10/26/20 17:28 Coronavirus (PCR) Negative (Negative) 10/27/20 Unknown Blood Type O POSITIVE 10/30/20 09:30 Antibody Screen Negative 10/30/20 09:30 Crossmatch See Detail 10/30/20 09:30 Microbiology: Microbiology 11/06/20 08:17 Stool - Stool Aspirate Stool Occult Blood (ELVER) - Final Rivas/IV: Voiding Method Indwelling Catheter Active Medications - Current Medications Current Medications: Generic Name Dose Route Start Last Admin Trade Name Freq PRN Reason Stop Dose Admin Acetaminophen 650 mg 10/26/20 22:22 11/04/20 21:43 Acetaminophen 325 Mg Tab PO 650 mg Q4H PRN Administration Pain MILD(1-3)/Fever >100.5/TIERNEY Amiodarone HCl 200 mg 10/31/20 12:00 11/07/20 09:23 Amiodarone 200 Mg Tab PO 200 mg BID MARSHALL Administration Lipase/Protease/Amylase 1 each 10/28/20 13:18 Lipase 10,500/Protease 25,000/Amylase 43,750 (Units) Dr Cap FEEDTUBE PRN PRN For Clogged Feeding Tube Enoxaparin Sodium 40 mg 11/07/20 10:00 11/07/20 09:23 Enoxaparin 40 Mg/0.4 Ml Inj SUB-Q 40 mg QDAY@1000 MARSHALL Administration Famotidine 20 mg 10/28/20 10:00 11/07/20 09:23 Famotidine 20 Mg/2 Ml Inj IV 20 mg BID MARSHALL Administration Fentanyl 50 mcg 10/26/20 17:25 11/04/20 18:12 Fentanyl 100 Mcg/2 Ml Inj IV 50 mcg Q10MIN PRN Administration ANALGESIA Fentanyl 50 mcg 10/27/20 10:39 11/06/20 15:36 Fentanyl 100 Mcg/2 Ml Inj IV 50 mcg Q2H PRN Administration Pain , Severe (7-10) Hydrophilic Ointment 1 applic 10/26/20 17:25 Lip Therapy Vaseline TP Q2HR PRN Dry Lips Norepinephrine 4 mg in 250 mls @ 112.5 mls/hr 10/28/20 01:00 11/06/20 01:06 Levophed Drip 4 Mg/Ns 250 Ml IV 0 mcg/min TITR MARSHALL 0 mls/hr Titration Protocol 30 MCG/MIN Vasopressin 20 unit/ Sodium 101 mls @ 9.09 mls/hr 10/28/20 16:00 Chloride IV TITR MARSHALL Protocol 0.03 UNITS/MIN Ceftriaxone Sodium 2 gm in 100 mls @ 200 mls/hr 10/29/20 13:00 11/06/20 13:00 Rocephin/Ns 2 Gm/100 Ml IV 11/12/20 13:29 Infused Q24H MARSHALL Infusion Protocol Metronidazole 500 mg in 100 mls @ 100 mls/hr 10/29/20 14:00 11/07/20 06:38 Flagyl 500 Mg/100 Ml IV 11/12/20 14:59 Infused Q8H MARSHALL Infusion Protocol Midodrine 10 mg 11/06/20 12:00 11/07/20 09:23 Midodrine 5 Mg Tab PO 10 mg TID@0800,1200,1600 MARSHALL Administration Multi-Ingred Cream/Lotion/Oil/Oint 1 applic 10/26/20 17:25 Mineral Oil/Petrolatum, White Ophth Oint 3.5 Gm OU Q4HR PRN Dry Eye(s) Ondansetron HCl 4 mg 10/26/20 22:22 Ondansetron 4 Mg/2 Ml Inj IV Q8H PRN Nausea And Vomiting Simple Syrup 15 ml 10/28/20 13:18 Simple Syrup 15 Ml FEEDTUBE PRN PRN Hypoglycemia Simple Syrup 30 ml 10/28/20 13:18 Simple Syrup 15 Ml FEEDTUBE PRN PRN Hypoglycemia Sodium Bicarbonate 325 mg 10/28/20 13:18 Sodium Bicarbonate 325 Mg Tab FEEDTUBE PRN PRN For Clogged Feeding Tube Sodium Chloride 5 ml 10/26/20 17:25 Sodium Chloride 0.9% 500 Ml Ivpb IV DIRECT PRN ARTERIAL ROPER OPERATOR Sodium Chloride 10 ml 10/27/20 10:00 11/07/20 09:24 Sodium Chloride 0.9% 10 Ml Flush Syringe IV 10 ml BID MARSHALL Administration Sodium Chloride 10 ml 10/26/20 22:22 Sodium Chloride 0.9% 10 Ml Flush Syringe IV PRN PRN LINE FLUSH Sodium Hypochlorite 1 applic 10/28/20 10:00 11/07/20 09:24 Sodium Hypochlorite, Dakin's 1/2 Strength (0.25%) 473 Ml Topical Soln TP 1 applicatio BID MARSHALL Administration Vancomycin HCl 125 mg 11/05/20 18:00 11/07/20 06:32 Vancomycin 250 Mg/10 Ml Oral Liqd PO 125 mg Q6HR MARSHALL Administration Protocol Nutrition/Malnutrition Assess - Dietary Evaluation Nutrition/Malnutrition Findings: Nutrition Notes Start: 10/27/20 09:15 Freq: Status: Active Protocol: Document 11/06/20 12:28 CW (Rec: 11/06/20 12:35 CW [email or web address]) Nutrition Notes Initial or Follow up Brief Note Current Diagnosis Acute Kidney Injury,Decubitus( Pressure Ulcer),Sepsis, Hypertension,Respiratory Failure,Hyperlipidemia Other Pertinent Diagnosis AMS, MRSA, Encephalopathy, Metabiloc Acidosis, pneu ,FTT Current Diet Vital HP at 80 ml/hr Labs/Tests Na 148 BUN 32 BG 143 P 0.9 Pertinent Medications Na3PO4 Height 6 ft 2 in Weight 135 kg [place] Body Weight (kg) 86.36 BMI 38.2 Weight change and time frame Weight stable at this time Weight Status Obese Subjective/Other Information MD verbally requested increase of free water flush d/t hypernatremia. PT remains on mechanical vent. TF still being well tolerated. Percent of energy/protein needs met: 100%/100% Burn Absent Trauma Absent Nutrition Intervention Change Diet Order: Continue TF regime, Increase flush Nutrition Support: Vital HP at 80 ml/hr with a free water flush of 150 ml q4h Kcal 1,920 Protein (gm) 168 Fluid (mL) 1,605 Follow-Up By: 11/11/20 Additional Comments bed continues to rotate patient
--- NOTE | 2020-11-07 10:35 | Progress Note ---
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 Chloride Carbon Dioxide BUN Creatinine Glucose POC Glucose 168 H Lactic Acid Calcium Phosphorus Magnesium Total Creatine Kinase Troponin T Total Protein Albumin Triglycerides LDL Cholesterol Direct HDL Cholesterol Arterial Blood Glucose Arterial Blood Ionized Calcium Urine pH Urine WBC (Auto) Vancomycin Trough Salicylates Acetaminophen Crossmatch 11/02/20 11/02/20 11/02/20 06:29 08:40 08:40 WBC 16.6 H RBC 2.87 L Hgb 8.8 L Hct 26.6 L MCV MCHC RDW 15.8 H Plt Count 30 L Seg Neuts % (Manual) 97.0 H Lymphocytes % (Manual) 2.0 L Nucleated RBC % 1.0 H Seg Neutrophils # Man 16.1 H Lymphocytes # (Manual) 0.3 L Monocytes # (Manual) ABG pH POC ABG pCO2 POC ABG pO2 ABG pO2 ABG HCO3 ABG O2 Saturation ABG Base Excess ABG Hemoglobin ABG Oxyhemoglobin ABG Potassium ABG Chloride ABG Glucose Carboxyhemoglobin Sodium Potassium 2.4 L* D Chloride 110.2 H Carbon Dioxide BUN 23 H Creatinine 0.4 L Glucose 154 H POC Glucose 131 H Lactic Acid Calcium 6.1 L Phosphorus Magnesium 1.50 L Total Creatine Kinase Troponin T Total Protein Albumin Triglycerides LDL Cholesterol Direct HDL Cholesterol Arterial Blood Glucose Arterial Blood Ionized Calcium Urine pH Urine WBC (Auto) Vancomycin Trough Salicylates Acetaminophen Crossmatch 11/02/20 11/02/20 11/02/20 13:17 17:25 18:05 WBC RBC Hgb Hct MCV MCHC RDW Plt Count Seg Neuts % (Manual) Lymphocytes % (Manual) Nucleated RBC % Seg Neutrophils # Man Lymphocytes # (Manual) Monocytes # (Manual) ABG pH POC ABG pCO2 POC ABG pO2 ABG pO2 ABG HCO3 ABG O2 Saturation ABG Base Excess ABG Hemoglobin ABG Oxyhemoglobin ABG Potassium ABG Chloride ABG Glucose Carboxyhemoglobin Sodium Potassium 3.1 L D Chloride Carbon Dioxide BUN Creatinine Glucose POC Glucose 134 H 140 H Lactic Acid Calcium Phosphorus Magnesium Total Creatine Kinase Troponin T Total Protein Albumin Triglycerides LDL Cholesterol Direct HDL Cholesterol Arterial Blood Glucose Arterial Blood Ionized Calcium Urine pH Urine WBC (Auto) Vancomycin Trough Salicylates Acetaminophen Crossmatch 11/02/20 11/03/20 11/03/20 23:36 04:15 05:07 WBC RBC Hgb Hct MCV MCHC RDW Plt Count Seg Neuts % (Manual) Lymphocytes % (Manual) Nucleated RBC % Seg Neutrophils # Man Lymphocytes # (Manual) Monocytes # (Manual) ABG pH POC ABG pCO2 POC ABG pO2 ABG pO2 ABG HCO3 ABG O2 Saturation ABG Base Excess ABG Hemoglobin ABG Oxyhemoglobin ABG Potassium ABG Chloride ABG Glucose Carboxyhemoglobin Sodium Potassium 3.0 L Chloride 111.8 H Carbon Dioxide BUN 24 H Creatinine 0.3 L Glucose 141 H POC Glucose 127 H 156 H Lactic Acid Calcium 5.8 L* Phosphorus Magnesium 1.60 L Total Creatine Kinase Troponin T Total Protein Albumin Triglycerides LDL Cholesterol Direct HDL Cholesterol Arterial Blood Glucose Arterial Blood Ionized Calcium Urine pH Urine WBC (Auto) Vancomycin Trough Salicylates Acetaminophen Crossmatch 11/03/20 11/03/20 11/04/20 11:14 17:31 00:17 WBC RBC Hgb Hct MCV MCHC RDW Plt Count Seg Neuts % (Manual) Lymphocytes % (Manual) Nucleated RBC % Seg Neutrophils # Man Lymphocytes # (Manual) Monocytes # (Manual) ABG pH POC ABG pCO2 POC ABG pO2 ABG pO2 ABG HCO3 ABG O2 Saturation ABG Base Excess ABG Hemoglobin ABG Oxyhemoglobin ABG Potassium ABG Chloride ABG Glucose Carboxyhemoglobin Sodium Potassium Chloride Carbon Dioxide BUN Creatinine Glucose POC Glucose 137 H 151 H 156 H Lactic Acid Calcium Phosphorus Magnesium Total Creatine Kinase Troponin T Total Protein Albumin Triglycerides LDL Cholesterol Direct HDL Cholesterol Arterial Blood Glucose Arterial Blood Ionized Calcium Urine pH Urine WBC (Auto) Vancomycin Trough Salicylates Acetaminophen Crossmatch 11/04/20 11/04/20 11/04/20 05:34 05:34 11:16 WBC 21.9 H RBC 2.67 L Hgb 8.2 L Hct 24.8 L MCV MCHC RDW 15.6 H Plt Count 48 L Seg Neuts % (Manual) Lymphocytes % (Manual) Nucleated RBC % Seg Neutrophils # Man Lymphocytes # (Manual) Monocytes # (Manual) ABG pH POC ABG pCO2 POC ABG pO2 ABG pO2 ABG HCO3 ABG O2 Saturation ABG Base Excess ABG Hemoglobin ABG Oxyhemoglobin ABG Potassium ABG Chloride ABG Glucose Carboxyhemoglobin Sodium 146 H Potassium Chloride 114.6 H Carbon Dioxide BUN 29 H Creatinine 0.3 L Glucose 173 H POC Glucose 156 H Lactic Acid Calcium 5.7 L* Phosphorus Magnesium Total Creatine Kinase Troponin T Total Protein Albumin Triglycerides LDL Cholesterol Direct HDL Cholesterol Arterial Blood Glucose Arterial Blood Ionized Calcium Urine pH Urine WBC (Auto) Vancomycin Trough Salicylates Acetaminophen Crossmatch 11/04/20 11/04/20 11/04/20 11:42 17:18 23:12 WBC RBC Hgb Hct MCV MCHC RDW Plt Count Seg Neuts % (Manual) Lymphocytes % (Manual) Nucleated RBC % Seg Neutrophils # Man Lymphocytes # (Manual) Monocytes # (Manual) ABG pH 7.525 H POC ABG pCO2 28.9 L POC ABG pO2 64.3 L ABG pO2 ABG HCO3 ABG O2 Saturation ABG Base Excess ABG Hemoglobin 8.2 L ABG Oxyhemoglobin ABG Potassium 3.3 L ABG Chloride 115.0 H ABG Glucose 165 H Carboxyhemoglobin Sodium Potassium Chloride Carbon Dioxide BUN Creatinine Glucose POC Glucose 144 H 155 H Lactic Acid Calcium Phosphorus Magnesium Total Creatine Kinase Troponin T Total Protein Albumin Triglycerides LDL Cholesterol Direct HDL Cholesterol Arterial Blood Glucose 165 H Arterial Blood Ionized Calcium 4.0 L Urine pH Urine WBC (Auto) Vancomycin Trough Salicylates Acetaminophen Crossmatch 11/05/20 11/05/20 11/05/20 04:48 04:48 05:57 WBC 17.4 H RBC 2.49 L Hgb 7.8 L Hct 23.5 L MCV MCHC RDW 16.0 H Plt Count 69 L Seg Neuts % (Manual) Lymphocytes % (Manual) Nucleated RBC % Seg Neutrophils # Man Lymphocytes # (Manual) Monocytes # (Manual) ABG pH POC ABG pCO2 POC ABG pO2 ABG pO2 ABG HCO3 ABG O2 Saturation ABG Base Excess ABG Hemoglobin ABG Oxyhemoglobin ABG Potassium ABG Chloride ABG Glucose Carboxyhemoglobin Sodium 147 H Potassium 3.5 L Chloride 115.4 H Carbon Dioxide BUN 34 H Creatinine 0.3 L Glucose 154 H POC Glucose 146 H Lactic Acid Calcium 6.1 L Phosphorus 2.00 L Magnesium Total Creatine Kinase Troponin T Total Protein Albumin Triglycerides LDL Cholesterol Direct HDL Cholesterol Arterial Blood Glucose Arterial Blood Ionized Calcium Urine pH Urine WBC (Auto) Vancomycin Trough Salicylates Acetaminophen Crossmatch 11/05/20 11/05/20 11/05/20 11:33 17:52 23:37 WBC RBC Hgb Hct MCV MCHC RDW Plt Count Seg Neuts % (Manual) Lymphocytes % (Manual) Nucleated RBC % Seg Neutrophils # Man Lymphocytes # (Manual) Monocytes # (Manual) ABG pH POC ABG pCO2 POC ABG pO2 ABG pO2 ABG HCO3 ABG O2 Saturation ABG Base Excess ABG Hemoglobin ABG Oxyhemoglobin ABG Potassium ABG Chloride ABG Glucose Carboxyhemoglobin Sodium Potassium Chloride Carbon Dioxide BUN Creatinine Glucose POC Glucose 144 H 136 H 151 H Lactic Acid Calcium Phosphorus Magnesium Total Creatine Kinase Troponin T Total Protein Albumin Triglycerides LDL Cholesterol Direct HDL Cholesterol Arterial Blood Glucose Arterial Blood Ionized Calcium Urine pH Urine WBC (Auto) Vancomycin Trough Salicylates Acetaminophen Crossmatch 11/06/20 11/06/20 11/06/20 05:36 06:45 06:45 WBC 15.0 H RBC 2.33 L Hgb 7.2 L Hct 22.1 L MCV 95 H MCHC RDW 16.2 H Plt Count 103 L Seg Neuts % (Manual) Lymphocytes % (Manual) Nucleated RBC % Seg Neutrophils # Man Lymphocytes # (Manual) Monocytes # (Manual) ABG pH POC ABG pCO2 POC ABG pO2 ABG pO2 ABG HCO3 ABG O2 Saturation ABG Base Excess ABG Hemoglobin ABG Oxyhemoglobin ABG Potassium ABG Chloride ABG Glucose Carboxyhemoglobin Sodium 148 H Potassium Chloride 118.2 H Carbon Dioxide BUN 32 H Creatinine 0.4 L Glucose 153 H POC Glucose 140 H Lactic Acid Calcium 6.4 L Phosphorus 0.90 L* D Magnesium Total Creatine Kinase Troponin T Total Protein 5.0 L Albumin 1.4 L Triglycerides LDL Cholesterol Direct HDL Cholesterol Arterial Blood Glucose Arterial Blood Ionized Calcium Urine pH Urine WBC (Auto) Vancomycin Trough Salicylates Acetaminophen Crossmatch 11/06/20 11/06/20 11/06/20 11:32 17:37 23:19 WBC RBC Hgb Hct MCV MCHC RDW Plt Count Seg Neuts % (Manual) Lymphocytes % (Manual) Nucleated RBC % Seg Neutrophils # Man Lymphocytes # (Manual) Monocytes # (Manual) ABG pH POC ABG pCO2 POC ABG pO2 ABG pO2 ABG HCO3 ABG O2 Saturation ABG Base Excess ABG Hemoglobin ABG Oxyhemoglobin ABG Potassium ABG Chloride ABG Glucose Carboxyhemoglobin Sodium Potassium Chloride Carbon Dioxide BUN Creatinine Glucose POC Glucose 132 H 133 H 145 H Lactic Acid Calcium Phosphorus Magnesium Total Creatine Kinase Troponin T Total Protein Albumin Triglycerides LDL Cholesterol Direct HDL Cholesterol Arterial Blood Glucose Arterial Blood Ionized Calcium Urine pH Urine WBC (Auto) Vancomycin Trough Salicylates Acetaminophen Crossmatch Allied health notes reviewed: nursing
[2020-11-07] MEDS ORDERED: ALTEPLASE 2 MG INJ IV SCH (11:00)
--- NOTE | 2020-11-07 11:08 | Progress Note ---
Assessment and Plan pt remains intubated, alert, for possible extubation. tele reviewed - in AFib HR 70s, AFib SVR HR low 40s noted overnight. Reduce PO amio to 200mg daily. Cont supportive management. 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 Discoloration of toes noted. Per vascular consultation - wean pressors as tolerated and obtain BLE arterial studies, not currently a candidate for revascularization given his overall condition. If he does have any area of thrombosis secondary to his low flow state and HIT, he will require anticoagulation with Argatroban. Replete electrolytes PRN. F/u BMP in AM. Will follow on as needed basis over the weekend. The patient has been seen in conjunction with Dr. Landa who agrees with the assessment and plan of care. - Patient Problems (1) AMS (altered mental status) Current Visit: Yes Status: Acute (2) Atrial fibrillation with RVR Current Visit: Yes Status: Acute (3) Acute respiratory failure Current Visit: Yes Status: Acute (4) Bilateral pneumonia Current Visit: Yes Status: Acute (5) Sepsis Current Visit: Yes Status: Acute (6) Sepsis associated hypotension Current Visit: Yes Status: Acute (7) Sacral decubitus ulcer, stage IV Current Visit: Yes Status: Acute (8) Bacteremia Current Visit: Yes Status: Acute (9) UTI (urinary tract infection) Current Visit: Yes Status: Acute (10) FAZAL (acute kidney injury) Current Visit: Yes Status: Acute (11) Hypomagnesemia Current Visit: Yes Status: Acute (12) Anemia Current Visit: Yes Status: Acute (13) Thrombocytopenia Current Visit: Yes Status: Acute (14) HIT (heparin-induced thrombocytopenia) Current Visit: Yes Status: Suspected Subjective Date of service: 11/07/20 Principal diagnosis: Acute Resp Fail, Septic Shock, Sacral Ulcer, AF with RVR Interval history: pt remains intubated, alert, for possible extubation. tele reviewed - in AFib HR 70s, AFib SVR HR low 40s noted overnight. Objective Last Vital Signs Temp 97.9 F 11/07/20 08:00 Pulse 77 11/07/20 08:16 Resp 29 H 04/09/21 08:16 BP 94/46 11/07/20 08:16 Pulse Ox 100 11/07/20 08:16 - Physical Examination General: Other (intubated) HEENT: Positive: Normocephaly Neck: Positive: neck supple, trachea midline Cardiac: Positive: irregularly irregular, S1/S2 Lungs: Positive: Decreased Breath Sounds, Oxygen, Ventilated Respirations Neuro: Positive: Other (intubated) Abdomen: Positive: Soft Skin: Positive: Wound. Negative: Rash Musculoskeletal: No Pain Extremities: Present: upper extr. pulses, lower extr. pulses, edema, Other (chronic skin changes noted) - Imaging and Cardiology EKG: report reviewed, image reviewed Echo: report reviewed (10/28/2020- EF 55-60%, no significant valvular abnormalities) - Telemetry EKG Rhythm: Atrial Fibrillation - Allied health notes Allied health notes reviewed: nursing
--- NOTE | 2020-11-07 11:39 | Progress Note ---
Assessment and Plan Cultures: 10/26/2020 tracheal aspirate culture: MRSA 10/26/2020 blood culture: Proteus 10/27/2020 urine culture: Mixed hien A/P: 75-year-old male, [facility] resident with seizure disorder, hypertension, depression, hyperlipidemia, chronic encephalopathy was sent to the hospital with worsening mental status: #Septic shock, Proteus bacteremia: Off pressors, noted worsening leukocytosis. multifactorial from infected sacral decubitus ulcer, bilateral pneumonia, UTI. Worsening leukocytosis with acute diarrhea 1L loose stool overnight ? C. difficile, leukocytosis improving today #Acute diarrhea: ? C. difficile, improved on vancomycin p.o. #Necrotic, infected sacral decubitus ulcer: underwent debridement 10/29/2020, also noted to have brittle coccyx consistent with osteomyelitis. #UTI: UA with significant pyuria. #Bilateral pneumonia: Noted on CT. Possibly some aspiration. Sputum culture positive for MRSA. Received vancomycin IV for 7 days. #FAZAL: Renally dose antibiotics. #Acute respiratory failure: on the vent. #PVD: SFA occlusion. Not a candidate for revascularization per vascular Recs: -Monitor leukocytosis which is improving -Continue empiric vancomycin 125 mg p.o. 4 times daily D3 of 10 -continue Ceftriaxone + Flagyl x 14 days from debridement D9 of 14 (prolonged abx not of much benefit even though there is osteomyelitis, main stay will be offloading and wound care) -Goal of care discussion with family -Remove Rivas catheter if possible will follow MD [facility] ([facility]) Office [phone] Subjective Date of service: 11/07/20 Principal diagnosis: Acute Resp Fail, Septic Shock, Sacral Ulcer, AF with RVR Interval history: Remains on the ventilator, alert, intubated FiO2 30, PEEP of 6 Objective - Exam Narrative Exam: General appearance: Intubated, sedated Eyes: anicteric sclerae, moist conjunctivae; no lid-lag; PERRLA HENT: Normocephalic, Atraumatic; normal external ears, nares open, oropharynx limited, he ETT in place, NG tube in place Neck: supple, tracheal midline, no JVD Lungs: Diminished breath sound bilaterally CV: RRR Abdomen: Soft, nontender Extremities: Bilateral upper extremity and lower extremity edema Skin: No rash. Extensive scrotal edema Psych: No agitated Neuro: Alert, open eyes, follows commands Rivas in place - Constitutional Vitals: Vital Signs Temp Pulse Resp BP Pulse Ox 97.9 F 77 29 H 94/46 100 11/07/20 08:00 11/07/20 08:16 11/07/20 08:16 11/07/20 08:16 11/07/20 08:16 Temperature -Last 24 Hours Temperature 97.9 F Temperature 97.7 F Temperature 96.8 F Temperature 98.2 F Temperature 98.2 F Temperature 98.6 F - Labs CBC & Chem 7: 11/06/20 06:45 11/06/20 06:45 Labs: Abnormal lab results 10/30/20 11/06/20 11/06/20 Range/Units 09:30 11:32 17:37 POC Glucose 132 H 133 H (70-105) mg/dL Crossmatch See Detail 11/06/20 Range/Units 23:19 POC Glucose 145 H (70-105) mg/dL Crossmatch
[2020-11-07] MEDS: cefTRIAXone/NS 2 GM/100 ML 2 GM/100 ML BAG IV SCH (12:14)
[2020-11-07 13:09] LABS: ABG Base Excess -0.5 mmol/L (-2.0-3.0); ABG HCO3 23.4 mmol/L (20.0-26.0); ABG Methemoglobin 0.6 % (0.0-1.5); ABG Oxygen Saturation 96.9 % (95.0-99.0); ABG PCO2 35.4 mm Hg; ABG PH 7.44 pH Units (7.350-7.450)
[2020-11-07 17:32] LABS: Mean Corpuscular HGB Conc 30 % (32-34); Mean Corpuscular Volume 104 fl (84-94); Platelet Count 133 K/mm3 (140-440); Red Blood Count 3.63 M/mm3 (3.65-5.03)
[2020-11-07 17:34] LABS: Hematocrit 37.7 % (35.5-45.6); Hemoglobin 11.4 gm/dl (11.8-15.2)
[2020-11-07 17:44] LABS: Blood Urea Nitrogen 31 mg/dL (9-20); Calcium 6.5 mg/dL (8.4-10.2); Hemolysis Index 157
[2020-11-07 17:45] LABS: BUN/Creatinine Ratio 78
[2020-11-08] MEDS: VANCOMYCIN 250 MG/10 ML ORAL LIQD PO SCH ×4 (00:34→17:34)
[2020-11-08] MEDS: metroNIDAZOLE/NS 500 MG/100 ML 500 MG/100 ML BAG IV SCH ×3 (06:06→21:34)
[2020-11-08] MEDS: MIDODRINE 5 MG TAB PO SCH ×3 (08:17→16:22)
--- NOTE | 2020-11-08 08:39 | Progress Note ---
Assessment and Plan Assessment and plan: This is a 75-year-old male who is a care home resident with seizure disorder, hypertension, depression, hyperlipidemia, hypoglycemia, dysphagia, and encephalopathy who presents to the emergency department on 10/26 via EMS for tachypnea, dry mucous membranes and hypoxia. Patient was hypotensive, febrile to 103 degrees and hypoxic in the emergency department therefore he was intubated and central IV access was obtained. Patient received 3.5 L of IV fluid in the emergency department. Patient was admitted to the hospital service with consults to CCM, surgery, WOCN and ID for Sepsis, acute kidney injury, urinary tract infection, acute respiratory failure, electrolyte imbalances, infected sacral wound and bilateral pneumonia. Sepsis Acute respiratory failure Infected sacral wound s/p debridement with surgery Anemia s/p 2 units prbc Proteus bacteremia MRSA pneumonia Urine tract infection Acute kidney injury Leukocytosis Hyponatremia Hyperchloremia Hypocalcemia Hypomagnesemia Hypophosphatemia Lactic acidosis 10/27: Patient received additional 4 L LR for fluid resuscitation and CV monitoring was initiated. Patient is on Levophed. ID added Flagyl to vancomycin and cefepime. His trach aspirate grew staph coccus aureus. At the time my examination patient the fentanyl drip was held by RN and he was on 14 MCG of Levophed. This morning he was on assist control 450/20/6/.100. We will give additional bolus of fluids with goal CVP 10-12 and repeat labs in AM. Surgery was consulted to possible debridement. 10/28: Overnight it was noted that patient went into SVT and he was given adenos ine 6 mg/12 mg / 12 mg once and was started on a Cardizem drip after no response to amnio bolus and cardiology was consulted. Currently patient remains on Levophed drip and is hypotensive and received additional 2 L of bolus for goal CVP of 10-12. Infectious disease changed cefepime/Flagyl to meropenem for GNR in his blood cultures 09/04 and will continue vancomycin. Patient currently was not well controlled on max Cardizem and cardiology initiated amiodarone. Patient still is very tachycardic. Patient is hypomagnesemic and we will replete his Mg and recheck level. We will give the patient additional to complete resolve LR this afternoon. Patient has a standing order per [facility] to bolus the patient with LR for CVP goal of 10-12. This morning he is hyperchlormeic, metabolic acidotic (bicarb drip initiated) and his BUN/creatinine slightly elevated. Patient still remains lactic acidotic. 10/29: Patient's blood culture speciated to Proteus and his tracheal aspirate is MRSA. He is currently on ceftriaxone, Flagyl and vancomycin. Patient heart rate consistently is 110-150s and cardiology has given him an amiodarone bolus today and he remains on amiodarone drip. He looks much started on IV digoxin. This morning 4 L LR bolus was ordered and we will bolus an additional 4 L of LR this afternoon. Patient still has lactic acidosis, metabolic acidosis, leukocytosis and hyperchloremia. On examination this morning patient is more edematous and he remains on Levophed and amnio drip. 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 Remains on amio, levo and sedated with fentanyl. He is hypokalemic today which was repleted, h/h 02/18 and he is being type and crossed today with 2 units PRBC ordered to be transfused. Plt drop noted, heparin discontinued and HIT ordered. Bicarb gtt discontinued. No acute events overnight. 10/31: Patient hypomagnesemia today which was repleted and cardiology has changed his IV amiodarone to p.o. Patient will get albumin per [facility]. At the time my examination patient is on assist control 450/20/6/0.40. 11/03: At the time my examination patient is on assist control 450/20/6/0.25 and sedated with fentanyl and on Levophed at 4.Patient's leukocytosis is improving he received Albumin this weekend. Patient is hypokalemic, hypomagnesemic, hypocalcemic today. We will repeat his electrolytes and recheck a BMP in the a.m. Patient received 2 units PRBC on 10/30 and his hemoglobin has been trending down. We will recheck in the a.m. 11/04: At the time of my examination patient was on Levophed 3 mcg and on VZV/CPAP 450/20/6/0.35. Patient still has leukocytosis, respiratory alkalosis, hyponatremia, hypochloremia, hypocalcemia. Today his magnesium and potassium repleted with bolus of potassium 4/magnesium 2. He received 60 mcg KCl p.o., 40 mEq of KCl IV and 2 g of magnesium sulfate. We will recheck BMP and mag and a.m. Surgery has deemed the patient to unstable for further debulking. We also consulted vascular surgery for PVD as patient has discoloration to BLE /feet. 11/05: Vascular surgery will obtain bilateral lower extremity arterial duplex to evaluate arterial flow and recommends adding as FWF to tube feedings in assisting to wean off of vasopressors. Patient has hypokalemia, hypophosphatemia and normal to low magnesium. Magnesium, potassium and phosphate have been repleted. Patient still remains on ventilator support but on CPAP trial this morning. Patient HIT is still pending. This morning at the time of my examination patient was on assist-control 450/20/6/0.35 and he tolerated CPAP trial for 4 hours yesterday. He was on Levophed 0.5 and his rectal tube output was noted at 1000 mL. 11/06: This morning patient was on a CPAP trial and became hypoxic with SPO2 into the 80s and was switched back to assist control. Patient's vent settings are assist control tidal and 450, rate 20, PEEP 6, FiO2 0.25. Today patient has leukocytosis, hypernatremia, hyperchloremia, hypocalcemia and hypophosphatemia. We will repeat a phosphate. His free water flushes have been increased and his magnesium has been repleted again. Patient has been started on Lovenox given improvement in his platelet count and on midodrine to help keep Levophed off. Infectious disease will continue p.o. vancomycin for total of 10 days. 11/07: Patient failed his CPAP trial yesterday and has been placed on CPAP 05/06 again this morning by RT. Overnight patient was rested on assist control tolerance by 50, rate of 20, pressure support 6 and FiO2 30%. His lab work is still pending for this morning. On repeat his phosphorus was 4.50 yesterday and repletion was discontinued. 11/08/2020; patient is off pressors currently on midodrine. Patient is on ceftriaxone and vancomycin. Patient is on assist control. Patient was evaluated by vascular surgery for peripheral vascular disease with SFA occlusion and recommend no intervention at this time. Prognosis is guarded. Patient is on 2 L of intranasal oxygen. We will put speech therapy evaluation. History Interval history: Patient was seen and evaluated this morning Patient is extubated and on 2 L of intranasal oxygen Patient has a lot of gurgling and need suction Patient is on NG tube feeding Hospitalist Physical - Physical exam Narrative exam: Patient is on 2 L of intranasal oxygen The patient appeared well nourished and normally developed. Vital signs as documented. Head exam is unremarkable. No scleral icterus . Neck is without jugular venous distension, thyromegaly, or carotid bruits. Lungs ; Patient has a lot of gurgling Cardiac exam reveals regular rate and Rhythm. Abdominal exam reveals normal bowel sounds, nontender, no organomegaly. Extremities are nonedematous and both femoral and pedal pulses are normal. SERVICE STATION HELPER: Alert and oriented 3. No focal weakness. - Constitutional Vitals: Temp Pulse Resp BP Pulse Ox 98.1 F 82 24 109/53 100 11/08/20 07:47 11/08/20 08:15 11/08/20 08:15 11/08/20 08:15 11/08/20 08:15 General appearance: Present: no acute distress, other (Intubated, resting comfortably) HEART Score - HEART Score EKG: Non-specific Age: > 65 Risk factors: > 3 risk factors or hx of atherosclerotic disease Troponin: Troponin T 0.062 ng/mL (0.00-0.029) H 10/26/20 17:25 Troponin: < normal limit - Critical Actions Critical Actions: 4-6 pts:12-16.6% risk of adverse cardiac event. Should be admitted Results - Labs CBC & Chem 7: 11/07/20 16:45 11/07/20 16:45 Labs: Laboratory Last Values WBC 12.0 K/mm3 (4.5-11.0) H 11/07/20 16:45 RBC 3.63 M/mm3 (3.65-5.03) L 11/07/20 16:45 Hgb 11.4 gm/dl (11.8-15.2) L D 11/07/20 16:45 Hct 37.7 % (35.5-45.6) D 11/07/20 16:45 MCV 104 fl (84-94) H 11/07/20 16:45 MCH 31 pg (28-32) 11/07/20 16:45 MCHC 30 % (32-34) L 11/07/20 16:45 RDW 18.0 % (13.2-15.2) H 11/07/20 16:45 Plt Count 133 K/mm3 (140-440) L 11/07/20 16:45 Lymph % (Auto) Shale Planer Operator Helper 11/07/20 16:45 Hardeman % (Auto) Shale Planer Operator Helper 11/07/20 16:45 Eos % (Auto) Shale Planer Operator Helper 11/07/20 16:45 Baso % (Auto) Shale Planer Operator Helper 11/07/20 16:45 Lymph # (Auto) Shale Planer Operator Helper 11/07/20 16:45 Hardeman # (Auto) Shale Planer Operator Helper 11/07/20 16:45 Eos # (Auto) Shale Planer Operator Helper 11/07/20 16:45 Baso # (Auto) Shale Planer Operator Helper 11/07/20 16:45 Add Manual Diff Complete 11/02/20 08:40 Total Counted 100 11/02/20 08:40 Seg Neutrophils % Shale Planer Operator Helper 11/07/20 16:45 Seg Neuts % (Manual) 97.0 % (40.0-70.0) H 11/02/20 08:40 Band Neutrophils % 17.0 % 10/27/20 03:30 Lymphocytes % (Manual) 2.0 % (13.4-35.0) L 11/02/20 08:40 Monocytes % (Manual) 1.0 % (0.0-7.3) 11/02/20 08:40 Eosinophils % (Manual) 2.0 % (0.0-4.3) 10/27/20 03:30 Metamyelocytes % 4.0 % 10/27/20 03:30 Nucleated RBC % 1.0 % (0.0-0.9) H 11/02/20 08:40 Seg Neutrophils # Shale Planer Operator Helper 11/07/20 16:45 Seg Neutrophils # Man 16.1 K/mm3 (1.8-7.7) H 11/02/20 08:40 Band Neutrophils # 0.0 K/mm3 11/02/20 08:40 Lymphocytes # (Manual) 0.3 K/mm3 (1.2-5.4) L 11/02/20 08:40 Abs React Lymphs (Man) 0.0 K/mm3 11/02/20 08:40 Monocytes # (Manual) 0.2 K/mm3 (0.0-0.8) 11/02/20 08:40 Eosinophils # (Manual) 0.0 K/mm3 (0.0-0.4) 11/02/20 08:40 Basophils # (Manual) 0.0 K/mm3 (0.0-0.1) 11/02/20 08:40 Metamyelocytes # 0.0 K/mm3 11/02/20 08:40 Myelocytes # 0.0 K/mm3 11/02/20 08:40 Promyelocytes # 0.0 K/mm3 11/02/20 08:40 Blast Cells # 0.0 K/mm3 11/02/20 08:40 WBC Morphology Not Reportable 11/02/20 08:40 Hypersegmented Neuts Not Reportable 11/02/20 08:40 Hyposegmented Neuts Not Reportable 11/02/20 08:40 Hypogranular Neuts Not Reportable 11/02/20 08:40 Smudge Cells Not Reportable 11/02/20 08:40 Toxic Granulation Not Reportable 11/02/20 08:40 Toxic Vacuolation Not Reportable 11/02/20 08:40 Dohle Bodies Not Reportable 11/02/20 08:40 Pelger-Huet Anomaly Not Reportable 11/02/20 08:40 Kassi Rods Not Reportable 11/02/20 08:40 Platelet Estimate Consistent w auto 11/02/20 08:40 Clumped Platelets Not Reportable 11/02/20 08:40 Plt Clumps, EDTA Not Reportable 11/02/20 08:40 Large Platelets Not Reportable 11/02/20 08:40 Giant Platelets Not Reportable 11/02/20 08:40 Platelet Satelliting Not Reportable 11/02/20 08:40 Plt Morphology Comment Not Reportable 11/02/20 08:40 RBC Morphology Normal 11/02/20 08:40 Dimorphic RBCs Not Reportable 11/02/20 08:40 Polychromasia Not Reportable 11/02/20 08:40 Hypochromasia Not Reportable 11/02/20 08:40 Poikilocytosis Not Reportable 11/02/20 08:40 Anisocytosis Not Reportable 11/02/20 08:40 Microcytosis Not Reportable 11/02/20 08:40 Macrocytosis Not Reportable 11/02/20 08:40 Spherocytes Not Reportable 11/02/20 08:40 Pappenheimer Bodies Not Reportable 11/02/20 08:40 Sickle Cells Not Reportable 11/02/20 08:40 Target Cells Not Reportable 11/02/20 08:40 Tear Drop Cells Not Reportable 11/02/20 08:40 Ovalocytes Not Reportable 11/02/20 08:40 Helmet Cells Not Reportable 11/02/20 08:40 [place] Bodies Not Reportable 11/02/20 08:40 [place] Rings Not Reportable 11/02/20 08:40 Rhea Cells Not Reportable 11/02/20 08:40 Bite Cells Not Reportable 11/02/20 08:40 Crenated Cell Not Reportable 11/02/20 08:40 Elliptocytes Not Reportable 11/02/20 08:40 Acanthocytes (Spur) Not Reportable 11/02/20 08:40 Rouleaux Not Reportable 11/02/20 08:40 Hemoglobin C Crystals Not Reportable 11/02/20 08:40 Schistocytes Not Reportable 11/02/20 08:40 Malaria parasites Not Reportable 11/02/20 08:40 Richard Bodies Not Reportable 11/02/20 08:40 Hem Pathologist Commnt No 11/02/20 08:40 APTT 27.9 Sec. (24.2-36.6) 10/26/20 17:25 ABG pH 7.440 pH Units (7.350-7.450) 11/07/20 12:55 POC ABG pCO2 28.9 mmHg (32.0-48.0) L 11/04/20 11:42 ABG pCO2 35.4 mm Hg 11/07/20 12:55 POC ABG pO2 64.3 mmHg (83-108) L 11/04/20 11:42 ABG pO2 82.0 mm Hg (80.0-90.0) 11/07/20 12:55 POC ABG HCO3 23.3 11/04/20 11:42 ABG HCO3 23.4 mmol/L (20.0-26.0) 11/07/20 12:55 ABG O2 Saturation 96.9 % (95.0-99.0) 11/07/20 12:55 ABG O2 Content 10.5 (0.0-44) 11/07/20 12:55 POC ABG Base Excess 0.9 11/04/20 11:42 ABG Base Excess -0.5 mmol/L (-2.0-3.0) 11/07/20 12:55 ABG Hemoglobin 7.7 gm/dl (14.0-18.0) L 11/07/20 12:55 ABG Oxyhemoglobin 94 (94-98) 11/04/20 11:42 ABG Carboxyhemoglobin 1.4 % (0.0-5.0) 11/07/20 12:55 ABG Methemoglobin 0.6 % (0.0-1.5) 11/07/20 12:55 ABG Sodium 142.4 mmol/L (136.0-145.0) 11/04/20 11:42 ABG Potassium 3.3 mmol/L (3.40-4.50) L 11/04/20 11:42 ABG Chloride 115.0 mmol/L (98-107) H 11/04/20 11:42 ABG Glucose 165 mg/dL (65-95) H 11/04/20 11:42 Oxyhemoglobin 94.9 % (95.0-99.0) L 11/07/20 12:55 Carboxyhemoglobin 1 (0.5-1.5) 11/04/20 11:42 FiO2 30 % 11/07/20 12:55 FiO2 % 35 11/04/20 11:42 Sodium 149 mmol/L (137-145) H 11/07/20 16:45 Potassium 4.6 mmol/L (3.6-5.0) 11/07/20 16:45 Chloride 119.8 mmol/L (98-107) H 11/07/20 16:45 Carbon Dioxide 22 mmol/L (22-30) 11/07/20 16:45 Anion Gap 12 mmol/L 11/07/20 16:45 BUN 31 mg/dL (9-20) H 11/07/20 16:45 Creatinine 0.4 mg/dL (0.8-1.3) L 11/07/20 16:45 Estimated GFR > 60 ml/min 11/07/20 16:45 BUN/Creatinine Ratio 78 % 11/07/20 16:45 Glucose 130 mg/dL (75-100) H 11/07/20 16:45 POC Glucose 109 mg/dL (70-105) H 11/08/20 06:11 Hemoglobin A1c 5.5 % (4-6) 10/27/20 04:42 Lactic Acid 4.30 mmol/L (0.7-2.0) H* 10/31/20 Unknown Calcium 6.5 mg/dL (8.4-10.2) L 11/07/20 16:45 Phosphorus 4.50 mg/dL (2.5-4.5) D 11/06/20 13:03 Magnesium 1.80 mg/dL (1.7-2.3) 11/07/20 16:45 Total Bilirubin < 0.20 mg/dL (0.1-1.2) 11/06/20 06:45 AST 23 units/L (5-40) 11/06/20 06:45 ALT 20 units/L (7-56) 11/06/20 06:45 Alkaline Phosphatase 117 units/L (35-129) 11/06/20 06:45 Total Creatine Kinase 31 units/L (55-170) L 10/26/20 17:28 Troponin T 0.062 ng/mL (0.00-0.029) H 10/26/20 17:25 Total Protein 5.0 g/dL (6.3-8.2) L 11/06/20 06:45 Albumin 1.4 g/dL (3.9-5) L 11/06/20 06:45 Albumin/Globulin Ratio 0.4 % 11/06/20 06:45 Triglycerides 190 mg/dL (2-149) H 10/26/20 17:25 Cholesterol 92 mg/dL (50-199) 10/26/20 17:25 LDL Cholesterol Direct 33 mg/dL (50-130) L 10/26/20 17:25 HDL Cholesterol 18 mg/dL (40-59) L 10/26/20 17:25 Cholesterol/HDL Ratio 5.11 % 10/26/20 17:25 TSH 1.490 mlU/mL (0.270-4.200) 10/26/20 17:28 Arterial Blood Glucose 165 mg/dL (65-95) H 11/04/20 11:42 Arterial Blood Ionized Calcium 4.0 mg/dL (4.6-5.3) L 11/04/20 11:42 Urine Color Yellow (Yellow) 10/27/20 Unknown Urine Turbidity Turbid (Clear) 10/27/20 Unknown Urine pH 8.0 (5.0-7.0) H 10/27/20 Unknown Ur Specific [place] 1.020 (1.003-1.030) 10/27/20 Unknown Urine Protein >500 mg/dL (Negative) 10/27/20 Unknown Urine Glucose (UA) Neg mg/dL (Negative) 10/27/20 Unknown Urine Ketones Neg mg/dL (Negative) 10/27/20 Unknown Urine Blood Sm (Negative) 10/27/20 Unknown Urine Nitrite Neg (Negative) 10/27/20 Unknown Urine Bilirubin Neg (Negative) 10/27/20 Unknown Urine Urobilinogen < 2.0 mg/dL (<2.0) 10/27/20 Unknown Ur Leukocyte Esterase Mod (Negative) 10/27/20 Unknown Urine WBC (Auto) > 182.0 /HPF (0.0-6.0) H 10/27/20 Unknown Urine RBC (Auto) 35.0 /HPF (0.0-6.0) 10/27/20 Unknown Urine WBC Clumps 3+ /HPF 10/27/20 Unknown Urine Mucus 3+ /HPF 10/27/20 Unknown Urine Yeast (Budding) 3+ /HPF 10/27/20 Unknown Vancomycin Trough 22.0 ug/mL (5.0-20.0) H 10/30/20 Unknown Salicylates < 0.3 mg/dL (2.8-20.0) L 10/26/20 17:28 Acetaminophen 5.0 ug/mL (10.0-30.0) L 10/26/20 17:28 Coronavirus (PCR) Negative (Negative) 10/27/20 Unknown Blood Type O POSITIVE 10/30/20 09:30 Antibody Screen Negative 10/30/20 09:30 Crossmatch See Detail 10/30/20 09:30 Rivas/IV: Voiding Method Incontinent Active Medications - Current Medications Current Medications: Generic Name Dose Route Start Last Admin Trade Name Freq PRN Reason Stop Dose Admin Acetaminophen 650 mg 10/26/20 22:22 11/04/20 21:43 Acetaminophen 325 Mg Tab PO 650 mg Q4H PRN Administration Pain MILD(1-3)/Fever >100.5/TIERNEY Alteplase, Recombinant 2 mg 11/07/20 11:00 11/07/20 12:14 Alteplase 2 Mg Inj IV 11/09/20 11:01 2 mg ONCE MARSHALL Administration Amiodarone HCl 200 mg 11/08/20 10:00 Amiodarone 200 Mg Tab PO DAILY MARSHALL Lipase/Protease/Amylase 1 each 10/28/20 13:18 Lipase 10,500/Protease 25,000/Amylase 43,750 (Units) Dr Cap FEEDTUBE PRN PRN For Clogged Feeding Tube Enoxaparin Sodium 40 mg 11/07/20 10:00 11/07/20 09:23 Enoxaparin 40 Mg/0.4 Ml Inj SUB-Q 40 mg QDAY@1000 MARSHALL Administration Famotidine 20 mg 10/28/20 10:00 11/07/20 21:23 Famotidine 20 Mg/2 Ml Inj IV 20 mg BID MARSHALL Administration Fentanyl 50 mcg 10/26/20 17:25 11/04/20 18:12 Fentanyl 100 Mcg/2 Ml Inj IV 50 mcg Q10MIN PRN Administration ANALGESIA Fentanyl 50 mcg 10/27/20 10:39 11/06/20 15:36 Fentanyl 100 Mcg/2 Ml Inj IV 50 mcg Q2H PRN Administration Pain , Severe (7-10) Hydrophilic Ointment 1 applic 10/26/20 17:25 Lip Therapy Vaseline TP Q2HR PRN Dry Lips Norepinephrine 4 mg in 250 mls @ 112.5 mls/hr 10/28/20 01:00 11/06/20 01:06 Levophed Drip 4 Mg/Ns 250 Ml IV 0 mcg/min TITR MARSHALL 0 mls/hr Titration Protocol 30 MCG/MIN Vasopressin 20 unit/ Sodium 101 mls @ 9.09 mls/hr 10/28/20 16:00 Chloride IV TITR MARSHALL Protocol 0.03 UNITS/MIN Ceftriaxone Sodium 2 gm in 100 mls @ 200 mls/hr 10/29/20 13:00 11/07/20 12:14 Rocephin/Ns 2 Gm/100 Ml IV 11/12/20 13:29 200 mls/hr Q24H MARSHALL Administration Protocol Metronidazole 500 mg in 100 mls @ 100 mls/hr 10/29/20 14:00 11/08/20 06:06 Flagyl 500 Mg/100 Ml IV 11/12/20 14:59 100 mls/hr Q8H MARSHALL Administration Protocol Midodrine 10 mg 11/06/20 12:00 11/07/20 18:16 Midodrine 5 Mg Tab PO 10 mg TID@0800,1200,1600 MARSHALL Administration Multi-Ingred Cream/Lotion/Oil/Oint 1 applic 10/26/20 17:25 Mineral Oil/Petrolatum, White Ophth Oint 3.5 Gm OU Q4HR PRN Dry Eye(s) Ondansetron HCl 4 mg 10/26/20 22:22 Ondansetron 4 Mg/2 Ml Inj IV Q8H PRN Nausea And Vomiting Simple Syrup 15 ml 10/28/20 13:18 Simple Syrup 15 Ml FEEDTUBE PRN PRN Hypoglycemia Simple Syrup 30 ml 10/28/20 13:18 Simple Syrup 15 Ml FEEDTUBE PRN PRN Hypoglycemia Sodium Bicarbonate 325 mg 10/28/20 13:18 Sodium Bicarbonate 325 Mg Tab FEEDTUBE PRN PRN For Clogged Feeding Tube Sodium Chloride 5 ml 10/26/20 17:25 Sodium Chloride 0.9% 500 Ml Ivpb IV DIRECT PRN ARTERIAL STATION INSTALLER AND REPAIRER Sodium Chloride 10 ml 10/27/20 10:00 11/07/20 21:23 Sodium Chloride 0.9% 10 Ml Flush Syringe IV 10 ml BID MARSHALL Administration Sodium Chloride 10 ml 10/26/20 22:22 Sodium Chloride 0.9% 10 Ml Flush Syringe IV PRN PRN LINE FLUSH Sodium Hypochlorite 1 applic 10/28/20 10:00 11/07/20 21:22 Sodium Hypochlorite, Dakin's 1/2 Strength (0.25%) 473 Ml Topical Soln TP 1 applicatio BID MARSHALL Administration Vancomycin HCl 125 mg 11/05/20 18:00 11/08/20 06:06 Vancomycin 250 Mg/10 Ml Oral Liqd PO 125 mg Q6HR MARSHALL Administration Protocol Nutrition/Malnutrition Assess - Dietary Evaluation Nutrition/Malnutrition Findings: Nutrition Notes Start: 10/27/20 09:15 Freq: Status: Active Protocol: Document 11/06/20 12:28 CW (Rec: 11/06/20 12:35 CW [email or web address]) Nutrition Notes Initial or Follow up Brief Note Current Diagnosis Acute Kidney Injury,Decubitus( Pressure Ulcer),Sepsis, Hypertension,Respiratory Failure,Hyperlipidemia Other Pertinent Diagnosis AMS, MRSA, Encephalopathy, Metabiloc Acidosis, pneu ,FTT Current Diet Vital HP at 80 ml/hr Labs/Tests Na 148 BUN 32 BG 143 P 0.9 Pertinent Medications Na3PO4 Height 6 ft 2 in Weight 135 kg [place] Body Weight (kg) 86.36 BMI 38.2 Weight change and time frame Weight stable at this time Weight Status Obese Subjective/Other Information MD verbally requested increase of free water flush d/t hypernatremia. PT remains on mechanical vent. TF still being well tolerated. Percent of energy/protein needs met: 100%/100% Burn Absent Trauma Absent Nutrition Intervention Change Diet Order: Continue TF regime, Increase flush Nutrition Support: Vital HP at 80 ml/hr with a free water flush of 150 ml q4h Kcal 1,920 Protein (gm) 168 Fluid (mL) 1,605 Follow-Up By: 11/11/20 Additional Comments bed continues to rotate patient
[2020-11-08] MEDS: ENOXAPARIN 40 MG/0.4 ML INJ SUB-Q SCH (09:17)
[2020-11-08] MEDS: FAMOTIDINE 20 MG/2 ML INJ IV SCH ×2 (09:18→21:34)
[2020-11-08] MEDS: AMIODARONE 200 MG TAB PO SCH (09:18)
[2020-11-08] MEDS: SODIUM HYPOCHLORITE, DAKIN'S 1/2 STRENGTH (0.25%) 473 ML TOPICAL SOLN TP SCH ×2 (09:19→21:34)
[2020-11-08 09:43] LABS: Heparin-Induced Platelet Antib Negative (Negative); Unfractionated Heparin Negative (Negative)
--- NOTE | 2020-11-08 09:56 | Progress Note ---
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 Excess ABG Hemoglobin ABG Oxyhemoglobin ABG Potassium ABG Chloride ABG Glucose Oxyhemoglobin Carboxyhemoglobin Sodium Potassium Chloride Carbon Dioxide BUN Creatinine Glucose POC Glucose 139 H 139 H 161 H Lactic Acid Calcium Phosphorus Magnesium Total Creatine Kinase Troponin T Total Protein Albumin Triglycerides LDL Cholesterol Direct HDL Cholesterol Arterial Blood Glucose Arterial Blood Ionized Calcium Urine pH Urine WBC (Auto) Vancomycin Trough Salicylates Acetaminophen Crossmatch 11/01/20 11/01/20 11/02/20 23:20 Unknown 04:30 WBC 18.2 H RBC 3.27 L Hgb 9.9 L Hct 30.1 L D MCV MCHC RDW 15.7 H Plt Count 34 L Seg Neuts % (Manual) Lymphocytes % (Manual) Nucleated RBC % Seg Neutrophils # Man Lymphocytes # (Manual) Monocytes # (Manual) ABG pH 7.456 H POC ABG pCO2 POC ABG pO2 ABG pO2 ABG HCO3 ABG O2 Saturation ABG Base Excess ABG Hemoglobin 9.2 L ABG Oxyhemoglobin ABG Potassium ABG Chloride ABG Glucose Oxyhemoglobin Carboxyhemoglobin Sodium Potassium Chloride Carbon Dioxide BUN Creatinine Glucose POC Glucose 168 H Lactic Acid Calcium Phosphorus Magnesium Total Creatine Kinase Troponin T Total Protein Albumin Triglycerides LDL Cholesterol Direct HDL Cholesterol Arterial Blood Glucose Arterial Blood Ionized Calcium Urine pH Urine WBC (Auto) Vancomycin Trough Salicylates Acetaminophen Crossmatch 11/02/20 11/02/20 11/02/20 06:29 08:40 08:40 WBC 16.6 H RBC 2.87 L Hgb 8.8 L Hct 26.6 L MCV MCHC RDW 15.8 H Plt Count 30 L Seg Neuts % (Manual) 97.0 H Lymphocytes % (Manual) 2.0 L Nucleated RBC % 1.0 H Seg Neutrophils # Man 16.1 H Lymphocytes # (Manual) 0.3 L Monocytes # (Manual) ABG pH POC ABG pCO2 POC ABG pO2 ABG pO2 ABG HCO3 ABG O2 Saturation ABG Base Excess ABG Hemoglobin ABG Oxyhemoglobin ABG Potassium ABG Chloride ABG Glucose Oxyhemoglobin Carboxyhemoglobin Sodium Potassium 2.4 L* D Chloride 110.2 H Carbon Dioxide BUN 23 H Creatinine 0.4 L Glucose 154 H POC Glucose 131 H Lactic Acid Calcium 6.1 L Phosphorus Magnesium 1.50 L Total Creatine Kinase Troponin T Total Protein Albumin Triglycerides LDL Cholesterol Direct HDL Cholesterol Arterial Blood Glucose Arterial Blood Ionized Calcium Urine pH Urine WBC (Auto) Vancomycin Trough Salicylates Acetaminophen Crossmatch 11/02/20 11/02/20 11/02/20 13:17 17:25 18:05 WBC RBC Hgb Hct MCV MCHC RDW Plt Count Seg Neuts % (Manual) Lymphocytes % (Manual) Nucleated RBC % Seg Neutrophils # Man Lymphocytes # (Manual) Monocytes # (Manual) ABG pH POC ABG pCO2 POC ABG pO2 ABG pO2 ABG HCO3 ABG O2 Saturation ABG Base Excess ABG Hemoglobin ABG Oxyhemoglobin ABG Potassium ABG Chloride ABG Glucose Oxyhemoglobin Carboxyhemoglobin Sodium Potassium 3.1 L D Chloride Carbon Dioxide BUN Creatinine Glucose POC Glucose 134 H 140 H Lactic Acid Calcium Phosphorus Magnesium Total Creatine Kinase Troponin T Total Protein Albumin Triglycerides LDL Cholesterol Direct HDL Cholesterol Arterial Blood Glucose Arterial Blood Ionized Calcium Urine pH Urine WBC (Auto) Vancomycin Trough Salicylates Acetaminophen Crossmatch 11/02/20 11/03/20 11/03/20 23:36 04:15 05:07 WBC RBC Hgb Hct MCV MCHC RDW Plt Count Seg Neuts % (Manual) Lymphocytes % (Manual) Nucleated RBC % Seg Neutrophils # Man Lymphocytes # (Manual) Monocytes # (Manual) ABG pH POC ABG pCO2 POC ABG pO2 ABG pO2 ABG HCO3 ABG O2 Saturation ABG Base Excess ABG Hemoglobin ABG Oxyhemoglobin ABG Potassium ABG Chloride ABG Glucose Oxyhemoglobin Carboxyhemoglobin Sodium Potassium 3.0 L Chloride 111.8 H Carbon Dioxide BUN 24 H Creatinine 0.3 L Glucose 141 H POC Glucose 127 H 156 H Lactic Acid Calcium 5.8 L* Phosphorus Magnesium 1.60 L Total Creatine Kinase Troponin T Total Protein Albumin Triglycerides LDL Cholesterol Direct HDL Cholesterol Arterial Blood Glucose Arterial Blood Ionized Calcium Urine pH Urine WBC (Auto) Vancomycin Trough Salicylates Acetaminophen Crossmatch 11/03/20 11/03/20 11/04/20 11:14 17:31 00:17 WBC RBC Hgb Hct MCV MCHC RDW Plt Count Seg Neuts % (Manual) Lymphocytes % (Manual) Nucleated RBC % Seg Neutrophils # Man Lymphocytes # (Manual) Monocytes # (Manual) ABG pH POC ABG pCO2 POC ABG pO2 ABG pO2 ABG HCO3 ABG O2 Saturation ABG Base Excess ABG Hemoglobin ABG Oxyhemoglobin ABG Potassium ABG Chloride ABG Glucose Oxyhemoglobin Carboxyhemoglobin Sodium Potassium Chloride Carbon Dioxide BUN Creatinine Glucose POC Glucose 137 H 151 H 156 H Lactic Acid Calcium Phosphorus Magnesium Total Creatine Kinase Troponin T Total Protein Albumin Triglycerides LDL Cholesterol Direct HDL Cholesterol Arterial Blood Glucose Arterial Blood Ionized Calcium Urine pH Urine WBC (Auto) Vancomycin Trough Salicylates Acetaminophen Crossmatch 11/04/20 11/04/20 11/04/20 05:34 05:34 11:16 WBC 21.9 H RBC 2.67 L Hgb 8.2 L Hct 24.8 L MCV MCHC RDW 15.6 H Plt Count 48 L Seg Neuts % (Manual) Lymphocytes % (Manual) Nucleated RBC % Seg Neutrophils # Man Lymphocytes # (Manual) Monocytes # (Manual) ABG pH POC ABG pCO2 POC ABG pO2 ABG pO2 ABG HCO3 ABG O2 Saturation ABG Base Excess ABG Hemoglobin ABG Oxyhemoglobin ABG Potassium ABG Chloride ABG Glucose Oxyhemoglobin Carboxyhemoglobin Sodium 146 H Potassium Chloride 114.6 H Carbon Dioxide BUN 29 H Creatinine 0.3 L Glucose 173 H POC Glucose 156 H Lactic Acid Calcium 5.7 L* Phosphorus Magnesium Total Creatine Kinase Troponin T Total Protein Albumin Triglycerides LDL Cholesterol Direct HDL Cholesterol Arterial Blood Glucose Arterial Blood Ionized Calcium Urine pH Urine WBC (Auto) Vancomycin Trough Salicylates Acetaminophen Crossmatch 11/04/20 11/04/20 11/04/20 11:42 17:18 23:12 WBC RBC Hgb Hct MCV MCHC RDW Plt Count Seg Neuts % (Manual) Lymphocytes % (Manual) Nucleated RBC % Seg Neutrophils # Man Lymphocytes # (Manual) Monocytes # (Manual) ABG pH 7.525 H POC ABG pCO2 28.9 L POC ABG pO2 64.3 L ABG pO2 ABG HCO3 ABG O2 Saturation ABG Base Excess ABG Hemoglobin 8.2 L ABG Oxyhemoglobin ABG Potassium 3.3 L ABG Chloride 115.0 H ABG Glucose 165 H Oxyhemoglobin Carboxyhemoglobin Sodium Potassium Chloride Carbon Dioxide BUN Creatinine Glucose POC Glucose 144 H 155 H Lactic Acid Calcium Phosphorus Magnesium Total Creatine Kinase Troponin T Total Protein Albumin Triglycerides LDL Cholesterol Direct HDL Cholesterol Arterial Blood Glucose 165 H Arterial Blood Ionized Calcium 4.0 L Urine pH Urine WBC (Auto) Vancomycin Trough Salicylates Acetaminophen Crossmatch 11/05/20 11/05/20 11/05/20 04:48 04:48 05:57 WBC 17.4 H RBC 2.49 L Hgb 7.8 L Hct 23.5 L MCV MCHC RDW 16.0 H Plt Count 69 L Seg Neuts % (Manual) Lymphocytes % (Manual) Nucleated RBC % Seg Neutrophils # Man Lymphocytes # (Manual) Monocytes # (Manual) ABG pH POC ABG pCO2 POC ABG pO2 ABG pO2 ABG HCO3 ABG O2 Saturation ABG Base Excess ABG Hemoglobin ABG Oxyhemoglobin ABG Potassium ABG Chloride ABG Glucose Oxyhemoglobin Carboxyhemoglobin Sodium 147 H Potassium 3.5 L Chloride 115.4 H Carbon Dioxide BUN 34 H Creatinine 0.3 L Glucose 154 H POC Glucose 146 H Lactic Acid Calcium 6.1 L Phosphorus 2.00 L Magnesium Total Creatine Kinase Troponin T Total Protein Albumin Triglycerides LDL Cholesterol Direct HDL Cholesterol Arterial Blood Glucose Arterial Blood Ionized Calcium Urine pH Urine WBC (Auto) Vancomycin Trough Salicylates Acetaminophen Crossmatch 11/05/20 11/05/20 11/05/20 11:33 17:52 23:37 WBC RBC Hgb Hct MCV MCHC RDW Plt Count Seg Neuts % (Manual) Lymphocytes % (Manual) Nucleated RBC % Seg Neutrophils # Man Lymphocytes # (Manual) Monocytes # (Manual) ABG pH POC ABG pCO2 POC ABG pO2 ABG pO2 ABG HCO3 ABG O2 Saturation ABG Base Excess ABG Hemoglobin ABG Oxyhemoglobin ABG Potassium ABG Chloride ABG Glucose Oxyhemoglobin Carboxyhemoglobin Sodium Potassium Chloride Carbon Dioxide BUN Creatinine Glucose POC Glucose 144 H 136 H 151 H Lactic Acid Calcium Phosphorus Magnesium Total Creatine Kinase Troponin T Total Protein Albumin Triglycerides LDL Cholesterol Direct HDL Cholesterol Arterial Blood Glucose Arterial Blood Ionized Calcium Urine pH Urine WBC (Auto) Vancomycin Trough Salicylates Acetaminophen Crossmatch 11/06/20 11/06/20 11/06/20 05:36 06:45 06:45 WBC 15.0 H RBC 2.33 L Hgb 7.2 L Hct 22.1 L MCV 95 H MCHC RDW 16.2 H Plt Count 103 L Seg Neuts % (Manual) Lymphocytes % (Manual) Nucleated RBC % Seg Neutrophils # Man Lymphocytes # (Manual) Monocytes # (Manual) ABG pH POC ABG pCO2 POC ABG pO2 ABG pO2 ABG HCO3 ABG O2 Saturation ABG Base Excess ABG Hemoglobin ABG Oxyhemoglobin ABG Potassium ABG Chloride ABG Glucose Oxyhemoglobin Carboxyhemoglobin Sodium 148 H Potassium Chloride 118.2 H Carbon Dioxide BUN 32 H Creatinine 0.4 L Glucose 153 H POC Glucose 140 H Lactic Acid Calcium 6.4 L Phosphorus 0.90 L* D Magnesium Total Creatine Kinase Troponin T Total Protein 5.0 L Albumin 1.4 L Triglycerides LDL Cholesterol Direct HDL Cholesterol Arterial Blood Glucose Arterial Blood Ionized Calcium Urine pH Urine WBC (Auto) Vancomycin Trough Salicylates Acetaminophen Crossmatch 11/06/20 11/06/20 11/06/20 11:32 17:37 23:19 WBC RBC Hgb Hct MCV MCHC RDW Plt Count Seg Neuts % (Manual) Lymphocytes % (Manual) Nucleated RBC % Seg Neutrophils # Man Lymphocytes # (Manual) Monocytes # (Manual) ABG pH POC ABG pCO2 POC ABG pO2 ABG pO2 ABG HCO3 ABG O2 Saturation ABG Base Excess ABG Hemoglobin ABG Oxyhemoglobin ABG Potassium ABG Chloride ABG Glucose Oxyhemoglobin Carboxyhemoglobin Sodium Potassium Chloride Carbon Dioxide BUN Creatinine Glucose POC Glucose 132 H 133 H 145 H Lactic Acid Calcium Phosphorus Magnesium Total Creatine Kinase Troponin T Total Protein Albumin Triglycerides LDL Cholesterol Direct HDL Cholesterol Arterial Blood Glucose Arterial Blood Ionized Calcium Urine pH Urine WBC (Auto) Vancomycin Trough Salicylates Acetaminophen Crossmatch 11/07/20 11/07/20 11/07/20 12:55 16:45 16:45 WBC 12.0 H RBC 3.63 L Hgb 11.4 L D Hct MCV 104 H MCHC 30 L RDW 18.0 H Plt Count 133 L Seg Neuts % (Manual) Lymphocytes % (Manual) Nucleated RBC % Seg Neutrophils # Man Lymphocytes # (Manual) Monocytes # (Manual) ABG pH POC ABG pCO2 POC ABG pO2 ABG pO2 ABG HCO3 ABG O2 Saturation ABG Base Excess ABG Hemoglobin 7.7 L ABG Oxyhemoglobin ABG Potassium ABG Chloride ABG Glucose Oxyhemoglobin 94.9 L Carboxyhemoglobin Sodium 149 H Potassium Chloride 119.8 H Carbon Dioxide BUN 31 H Creatinine 0.4 L Glucose 130 H POC Glucose Lactic Acid Calcium 6.5 L Phosphorus Magnesium Total Creatine Kinase Troponin T Total Protein Albumin Triglycerides LDL Cholesterol Direct HDL Cholesterol Arterial Blood Glucose Arterial Blood Ionized Calcium Urine pH Urine WBC (Auto) Vancomycin Trough Salicylates Acetaminophen Crossmatch 11/07/20 11/08/20 11/08/20 17:23 00:12 06:11 WBC RBC Hgb Hct MCV MCHC RDW Plt Count Seg Neuts % (Manual) Lymphocytes % (Manual) Nucleated RBC % Seg Neutrophils # Man Lymphocytes # (Manual) Monocytes # (Manual) ABG pH POC ABG pCO2 POC ABG pO2 ABG pO2 ABG HCO3 ABG O2 Saturation ABG Base Excess ABG Hemoglobin ABG Oxyhemoglobin ABG Potassium ABG Chloride ABG Glucose Oxyhemoglobin Carboxyhemoglobin Sodium Potassium Chloride Carbon Dioxide BUN Creatinine Glucose POC Glucose 115 H 129 H 109 H Lactic Acid Calcium Phosphorus Magnesium Total Creatine Kinase Troponin T Total Protein Albumin Triglycerides LDL Cholesterol Direct HDL Cholesterol Arterial Blood Glucose Arterial Blood Ionized Calcium Urine pH Urine WBC (Auto) Vancomycin Trough Salicylates Acetaminophen Crossmatch Allied health notes reviewed: nursing
--- NOTE | 2020-11-08 12:20 | Event Note ---
Date: 11/08/20 Spoke with her grand daughter and explained the management plan and the new findings and she agreed with the plan of care.
[2020-11-08] MEDS: cefTRIAXone/NS 2 GM/100 ML 2 GM/100 ML BAG IV SCH (13:21)
[2020-11-08] MEDS ORDERED: DEXTROSE 50% IN WATER (25GM) 50 ML SYRINGE IV ONE (23:54)
[2020-11-09] MEDS: VANCOMYCIN 250 MG/10 ML ORAL LIQD PO SCH ×4 (00:30→18:10)
[2020-11-09] MEDS ORDERED: MORPHINE 2 MG/1 ML INJ IV ONE (03:34)
[2020-11-09] MEDS: metroNIDAZOLE/NS 500 MG/100 ML 500 MG/100 ML BAG IV SCH ×3 (05:45→23:48)
[2020-11-09 06:34] LABS: Basophils % (Auto) 0.4 % (0.0-1.8); Eosinophils % (Auto) 0.3 % (0.0-4.3); Hemoglobin 7.6 gm/dl (11.8-15.2); Lymphocytes # (Auto) 1.2 K/mm3 (1.2-5.4); Lymphocytes % (Auto) 9.1 % (13.4-35.0); Mean Corpuscular HGB Conc 33 % (32-34); Mean Corpuscular Volume 97 fl (84-94); Monocytes # (Auto) 0.7 K/mm3 (0.0-0.8); Monocytes % (Auto) 5.4 % (0.0-7.3); Platelet Count 224 K/mm3 (140-440); Red Blood Count 2.35 M/mm3 (3.65-5.03); Red Cell Distribution Width 16.8 % (13.2-15.2)
[2020-11-09 06:51] LABS: Hematocrit 22.9 % (35.5-45.6)
[2020-11-09 06:57] LABS: Blood Urea Nitrogen 30 mg/dL (9-20); Calcium 7.2 mg/dL (8.4-10.2); Hemolysis Index 2
[2020-11-09 06:59] LABS: BUN/Creatinine Ratio 75
[2020-11-09] MEDS: MIDODRINE 5 MG TAB PO SCH ×3 (08:03→15:21)
--- NOTE | 2020-11-09 09:26 | Progress Note ---
Assessment and Plan Assessment and plan: This is a 75-year-old male who is a [facility] resident with seizure disorder, hypertension, depression, hyperlipidemia, hypoglycemia, dysphagia, and encephalopathy who presents to the emergency department on 10/26 via EMS for tachypnea, dry mucous membranes and hypoxia. Patient was hypotensive, febrile to 103 degrees and hypoxic in the emergency department therefore he was intubated and central IV access was obtained. Patient received 3.5 L of IV fluid in the emergency department. Patient was admitted to the hospital service with consults to CCM, surgery, WOCN and ID for Sepsis, acute kidney injury, urinary tract infection, acute respiratory failure, electrolyte imbalances, infected sacral wound and bilateral pneumonia. Sepsis Acute respiratory failure Infected sacral wound s/p debridement with surgery Anemia s/p 2 units prbc Proteus bacteremia MRSA pneumonia Urine tract infection Acute kidney injury Leukocytosis Hyponatremia Hyperchloremia Hypocalcemia Hypomagnesemia Hypophosphatemia Lactic acidosis 10/27: Patient received additional 4 L LR for fluid resuscitation and CV monitoring was initiated. Patient is on Levophed. ID added Flagyl to vancomycin and cefepime. His trach aspirate grew staph coccus aureus. At the time my examination patient the fentanyl drip was held by RN and he was on 14 MCG of Levophed. This morning he was on assist control 450/20/6/.100. We will give additional bolus of fluids with goal CVP 10-12 and repeat labs in AM. Surgery was consulted to possible debridement. 10/28: Overnight it was noted that patient went into SVT and he was given adenos ine 6 mg/12 mg / 12 mg once and was started on a Cardizem drip after no response to amnio bolus and cardiology was consulted. Currently patient remains on Levophed drip and is hypotensive and received additional 2 L of bolus for goal CVP of 10-12. Infectious disease changed cefepime/Flagyl to meropenem for GNR in his blood cultures 09/04 and will continue vancomycin. Patient currently was not well controlled on max Cardizem and cardiology initiated amiodarone. Patient still is very tachycardic. Patient is hypomagnesemic and we will replete his Mg and recheck level. We will give the patient additional to complete resolve LR this afternoon. Patient has a standing order per [facility] to bolus the patient with LR for CVP goal of 10-12. This morning he is hyperchlormeic, metabolic acidotic (bicarb drip initiated) and his BUN/creatinine slightly elevated. Patient still remains lactic acidotic. 10/29: Patient's blood culture speciated to Proteus and his tracheal aspirate is MRSA. He is currently on ceftriaxone, Flagyl and vancomycin. Patient heart rate consistently is 110-150s and cardiology has given him an amiodarone bolus today and he remains on amiodarone drip. He looks much started on IV digoxin. This morning 4 L LR bolus was ordered and we will bolus an additional 4 L of LR this afternoon. Patient still has lactic acidosis, metabolic acidosis, leukocytosis and hyperchloremia. On examination this morning patient is more edematous and he remains on Levophed and amnio drip. 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 Remains on amio, levo and sedated with fentanyl. He is hypokalemic today which was repleted, h/h 02/18 and he is being type and crossed today with 2 units PRBC ordered to be transfused. Plt drop noted, heparin discontinued and HIT ordered. Bicarb gtt discontinued. No acute events overnight. 10/31: Patient hypomagnesemia today which was repleted and cardiology has changed his IV amiodarone to p.o. Patient will get albumin per [facility]. At the time my examination patient is on assist control 450/20/6/0.40. 11/03: At the time my examination patient is on assist control 450/20/6/0.25 and sedated with fentanyl and on Levophed at 4.Patient's leukocytosis is improving he received Albumin this weekend. Patient is hypokalemic, hypomagnesemic, hypocalcemic today. We will repeat his electrolytes and recheck a BMP in the a.m. Patient received 2 units PRBC on 10/30 and his hemoglobin has been trending down. We will recheck in the a.m. 11/04: At the time of my examination patient was on Levophed 3 mcg and on VZV/CPAP 450/20/6/0.35. Patient still has leukocytosis, respiratory alkalosis, hyponatremia, hypochloremia, hypocalcemia. Today his magnesium and potassium repleted with bolus of potassium 4/magnesium 2. He received 60 mcg KCl p.o., 40 mEq of KCl IV and 2 g of magnesium sulfate. We will recheck BMP and mag and a.m. Surgery has deemed the patient to unstable for further debulking. We also consulted vascular surgery for PVD as patient has discoloration to BLE /feet. 11/05: Vascular surgery will obtain bilateral lower extremity arterial duplex to evaluate arterial flow and recommends adding as FWF to tube feedings in assisting to wean off of vasopressors. Patient has hypokalemia, hypophosphatemia and normal to low magnesium. Magnesium, potassium and phosphate have been repleted. Patient still remains on ventilator support but on CPAP trial this morning. Patient HIT is still pending. This morning at the time of my examination patient was on assist-control 450/20/6/0.35 and he tolerated CPAP trial for 4 hours yesterday. He was on Levophed 0.5 and his rectal tube output was noted at 1000 mL. 11/06: This morning patient was on a CPAP trial and became hypoxic with SPO2 into the 80s and was switched back to assist control. Patient's vent settings are assist control tidal and 450, rate 20, PEEP 6, FiO2 0.25. Today patient has leukocytosis, hypernatremia, hyperchloremia, hypocalcemia and hypophosphatemia. We will repeat a phosphate. His free water flushes have been increased and his magnesium has been repleted again. Patient has been started on Lovenox given improvement in his platelet count and on midodrine to help keep Levophed off. Infectious disease will continue p.o. vancomycin for total of 10 days. 11/07: Patient failed his CPAP trial yesterday and has been placed on CPAP 05/06 again this morning by RT. Overnight patient was rested on assist control tolerance by 50, rate of 20, pressure support 6 and FiO2 30%. His lab work is still pending for this morning. On repeat his phosphorus was 4.50 yesterday and repletion was discontinued. 11/08/2020; patient is off pressors currently on midodrine. Patient is on ceftriaxone and vancomycin. Patient is on assist control. Patient was evaluated by vascular surgery for peripheral vascular disease with SFA occlusion and recommend no intervention at this time. Prognosis is guarded. Patient is on 2 L of intranasal oxygen. We will put speech therapy evaluation. 11/09/2020; patient is currently off pressors and on midodrine. Continue with ceftriaxone, Flagyl and vancomycin per ID recommendation. Patient's blood culture grew Proteus mirabilis and tracheal aspirate grew MRSA. Patient was evaluated by vascular surgery for PVD with SFA occlusion and recommend no intervention at this time. Patient is on 2 L of intranasal oxygen. Currently patient is on tube feeding and follow speech therapy evaluation. The high probability of a clinically significant, sudden or life threatening deterioration of the [neurology, respiratory, GI] system(s) required my full and direct attention, intervention and personal management. The aggregate critical care time was [31] minutes. This time is in addition to time spent performing reported procedures but includes the following: [x] Data Review and interpretation [x] Patient assessment and monitoring of vital signs [x] Documentation [x] Medication orders and management History Interval history: Patient was seen and evaluated this morning Patient is extubated and on 2 L of intranasal oxygen Patient is on NG tube feeding Hospitalist Physical - Physical exam Narrative exam: Patient is on 2 L of intranasal oxygen The patient appeared well nourished and normally developed. Vital signs as documented. Head exam is unremarkable. No scleral icterus . Neck is without jugular venous distension, thyromegaly, or carotid bruits. Lungs ; clear to auscultation bilaterally Cardiac exam reveals regular rate and Rhythm. Abdominal exam reveals normal bowel sounds, nontender, no organomegaly. Extremities are nonedematous and both femoral and pedal pulses are normal. STRINGS TEACHER: Alert and oriented 3. No focal weakness. - Constitutional Vitals: Temp Pulse Resp BP Pulse Ox 98.3 F 85 27 H 108/53 99 11/09/20 07:21 11/09/20 07:15 11/09/20 07:15 11/09/20 07:15 11/09/20 07:31 General appearance: Present: no acute distress, other (Intubated, resting comfortably) HEART Score - HEART Score EKG: Non-specific Age: > 65 Risk factors: > 3 risk factors or hx of atherosclerotic disease Troponin: Troponin T 0.062 ng/mL (0.00-0.029) H 10/26/20 17:25 Troponin: < normal limit - Critical Actions Critical Actions: 4-6 pts:12-16.6% risk of adverse cardiac event. Should be admitted Results - Labs CBC & Chem 7: 11/09/20 06:00 11/09/20 06:00 Labs: Laboratory Last Values WBC 13.1 K/mm3 (4.5-11.0) H 11/09/20 06:00 RBC 2.35 M/mm3 (3.65-5.03) L 11/09/20 06:00 Hgb 7.6 gm/dl (11.8-15.2) L D 11/09/20 06:00 Hct 22.9 % (35.5-45.6) L D 11/09/20 06:00 MCV 97 fl (84-94) H 11/09/20 06:00 MCH 32 pg (28-32) 11/09/20 06:00 MCHC 33 % (32-34) 11/09/20 06:00 RDW 16.8 % (13.2-15.2) H 11/09/20 06:00 Plt Count 224 K/mm3 (140-440) 11/09/20 06:00 Lymph % (Auto) 9.1 % (13.4-35.0) L 11/09/20 06:00 [place] % (Auto) 5.4 % (0.0-7.3) 11/09/20 06:00 Eos % (Auto) 0.3 % (0.0-4.3) 11/09/20 06:00 Baso % (Auto) 0.4 % (0.0-1.8) 11/09/20 06:00 Lymph # (Auto) 1.2 K/mm3 (1.2-5.4) 11/09/20 06:00 [place] # (Auto) 0.7 K/mm3 (0.0-0.8) 11/09/20 06:00 Eos # (Auto) 0.0 K/mm3 (0.0-0.4) 11/09/20 06:00 Baso # (Auto) 0.0 K/mm3 (0.0-0.1) 11/09/20 06:00 Add Manual Diff Complete 11/02/20 08:40 Total Counted 100 11/02/20 08:40 Seg Neutrophils % 84.8 % (40.0-70.0) H 11/09/20 06:00 Seg Neuts % (Manual) 97.0 % (40.0-70.0) H 11/02/20 08:40 Band Neutrophils % 17.0 % 10/27/20 03:30 Lymphocytes % (Manual) 2.0 % (13.4-35.0) L 11/02/20 08:40 Monocytes % (Manual) 1.0 % (0.0-7.3) 11/02/20 08:40 Eosinophils % (Manual) 2.0 % (0.0-4.3) 10/27/20 03:30 Metamyelocytes % 4.0 % 10/27/20 03:30 Nucleated RBC % 1.0 % (0.0-0.9) H 11/02/20 08:40 Seg Neutrophils # 11.1 K/mm3 (1.8-7.7) H 11/09/20 06:00 Seg Neutrophils # Man 16.1 K/mm3 (1.8-7.7) H 11/02/20 08:40 Band Neutrophils # 0.0 K/mm3 11/02/20 08:40 Lymphocytes # (Manual) 0.3 K/mm3 (1.2-5.4) L 11/02/20 08:40 Abs React Lymphs (Man) 0.0 K/mm3 11/02/20 08:40 Monocytes # (Manual) 0.2 K/mm3 (0.0-0.8) 11/02/20 08:40 Eosinophils # (Manual) 0.0 K/mm3 (0.0-0.4) 11/02/20 08:40 Basophils # (Manual) 0.0 K/mm3 (0.0-0.1) 11/02/20 08:40 Metamyelocytes # 0.0 K/mm3 11/02/20 08:40 Myelocytes # 0.0 K/mm3 11/02/20 08:40 Promyelocytes # 0.0 K/mm3 11/02/20 08:40 Blast Cells # 0.0 K/mm3 11/02/20 08:40 WBC Morphology Not Reportable 11/02/20 08:40 Hypersegmented Neuts Not Reportable 11/02/20 08:40 Hyposegmented Neuts Not Reportable 11/02/20 08:40 Hypogranular Neuts Not Reportable 11/02/20 08:40 Smudge Cells Not Reportable 11/02/20 08:40 Toxic Granulation Not Reportable 11/02/20 08:40 Toxic Vacuolation Not Reportable 11/02/20 08:40 Dohle Bodies Not Reportable 11/02/20 08:40 Pelger-Huet Anomaly Not Reportable 11/02/20 08:40 Kassi Rods Not Reportable 11/02/20 08:40 Platelet Estimate Consistent w auto 11/02/20 08:40 Clumped Platelets Not Reportable 11/02/20 08:40 Plt Clumps, EDTA Not Reportable 11/02/20 08:40 Large Platelets Not Reportable 11/02/20 08:40 Giant Platelets Not Reportable 11/02/20 08:40 Platelet Satelliting Not Reportable 11/02/20 08:40 Plt Morphology Comment Not Reportable 11/02/20 08:40 RBC Morphology Normal 11/02/20 08:40 Dimorphic RBCs Not Reportable 11/02/20 08:40 Polychromasia Not Reportable 11/02/20 08:40 Hypochromasia Not Reportable 11/02/20 08:40 Poikilocytosis Not Reportable 11/02/20 08:40 Anisocytosis Not Reportable 11/02/20 08:40 Microcytosis Not Reportable 11/02/20 08:40 Macrocytosis Not Reportable 11/02/20 08:40 Spherocytes Not Reportable 11/02/20 08:40 Pappenheimer Bodies Not Reportable 11/02/20 08:40 Sickle Cells Not Reportable 11/02/20 08:40 Target Cells Not Reportable 11/02/20 08:40 Tear Drop Cells Not Reportable 11/02/20 08:40 Ovalocytes Not Reportable 11/02/20 08:40 Helmet Cells Not Reportable 11/02/20 08:40 [place] Bodies Not Reportable 11/02/20 08:40 [place] Rings Not Reportable 11/02/20 08:40 [place] Cells Not Reportable 11/02/20 08:40 Bite Cells Not Reportable 11/02/20 08:40 Crenated Cell Not Reportable 11/02/20 08:40 Elliptocytes Not Reportable 11/02/20 08:40 Acanthocytes (Spur) Not Reportable 11/02/20 08:40 Rouleaux Not Reportable 11/02/20 08:40 Hemoglobin C Crystals Not Reportable 11/02/20 08:40 Schistocytes Not Reportable 11/02/20 08:40 Malaria parasites Not Reportable 11/02/20 08:40 Richard Bodies Not Reportable 11/02/20 08:40 Hem Pathologist Commnt No 11/02/20 08:40 APTT 27.9 Sec. (24.2-36.6) 10/26/20 17:25 Heparin Anti-Xa, Unfract Negative (Negative) 11/03/20 11:01 ABG pH 7.440 pH Units (7.350-7.450) 11/07/20 12:55 POC ABG pCO2 28.9 mmHg (32.0-48.0) L 11/04/20 11:42 ABG pCO2 35.4 mm Hg 11/07/20 12:55 POC ABG pO2 64.3 mmHg (83-108) L 11/04/20 11:42 ABG pO2 82.0 mm Hg (80.0-90.0) 11/07/20 12:55 POC ABG HCO3 23.3 11/04/20 11:42 ABG HCO3 23.4 mmol/L (20.0-26.0) 11/07/20 12:55 ABG O2 Saturation 96.9 % (95.0-99.0) 11/07/20 12:55 ABG O2 Content 10.5 (0.0-44) 11/07/20 12:55 POC ABG Base Excess 0.9 11/04/20 11:42 ABG Base Excess -0.5 mmol/L (-2.0-3.0) 11/07/20 12:55 ABG Hemoglobin 7.7 gm/dl (14.0-18.0) L 11/07/20 12:55 ABG Oxyhemoglobin 94 (94-98) 11/04/20 11:42 ABG Carboxyhemoglobin 1.4 % (0.0-5.0) 11/07/20 12:55 ABG Methemoglobin 0.6 % (0.0-1.5) 11/07/20 12:55 ABG Sodium 142.4 mmol/L (136.0-145.0) 11/04/20 11:42 ABG Potassium 3.3 mmol/L (3.40-4.50) L 11/04/20 11:42 ABG Chloride 115.0 mmol/L (98-107) H 11/04/20 11:42 ABG Glucose 165 mg/dL (65-95) H 11/04/20 11:42 Oxyhemoglobin 94.9 % (95.0-99.0) L 11/07/20 12:55 Carboxyhemoglobin 1 (0.5-1.5) 11/04/20 11:42 FiO2 30 % 11/07/20 12:55 FiO2 % 35 11/04/20 11:42 Sodium 150 mmol/L (137-145) H 11/09/20 06:00 Potassium 3.4 mmol/L (3.6-5.0) L D 11/09/20 06:00 Chloride 119.2 mmol/L (98-107) H 11/09/20 06:00 Carbon Dioxide 26 mmol/L (22-30) 11/09/20 06:00 Anion Gap 8 mmol/L 11/09/20 06:00 BUN 30 mg/dL (9-20) H 11/09/20 06:00 Creatinine 0.4 mg/dL (0.8-1.3) L 11/09/20 06:00 Estimated GFR > 60 ml/min 11/09/20 06:00 BUN/Creatinine Ratio 75 % 11/09/20 06:00 Glucose 137 mg/dL (75-100) H 11/09/20 06:00 POC Glucose 93 mg/dL (70-105) 11/09/20 00:47 Hemoglobin A1c 5.5 % (4-6) 10/27/20 04:42 Lactic Acid 4.30 mmol/L (0.7-2.0) H* 10/31/20 Unknown Calcium 7.2 mg/dL (8.4-10.2) L 11/09/20 06:00 Phosphorus 4.50 mg/dL (2.5-4.5) D 11/06/20 13:03 Magnesium 1.80 mg/dL (1.7-2.3) 11/07/20 16:45 Total Bilirubin < 0.20 mg/dL (0.1-1.2) 11/06/20 06:45 AST 23 units/L (5-40) 11/06/20 06:45 ALT 20 units/L (7-56) 11/06/20 06:45 Alkaline Phosphatase 117 units/L (35-129) 11/06/20 06:45 Total Creatine Kinase 31 units/L (55-170) L 10/26/20 17:28 Troponin T 0.062 ng/mL (0.00-0.029) H 10/26/20 17:25 Total Protein 5.0 g/dL (6.3-8.2) L 11/06/20 06:45 Albumin 1.4 g/dL (3.9-5) L 11/06/20 06:45 Albumin/Globulin Ratio 0.4 % 11/06/20 06:45 Triglycerides 190 mg/dL (2-149) H 10/26/20 17:25 Cholesterol 92 mg/dL (50-199) 10/26/20 17:25 LDL Cholesterol Direct 33 mg/dL (50-130) L 10/26/20 17:25 HDL Cholesterol 18 mg/dL (40-59) L 10/26/20 17:25 Cholesterol/HDL Ratio 5.11 % 10/26/20 17:25 TSH 1.490 mlU/mL (0.270-4.200) 10/26/20 17:28 Arterial Blood Glucose 165 mg/dL (65-95) H 11/04/20 11:42 Arterial Blood Ionized Calcium 4.0 mg/dL (4.6-5.3) L 11/04/20 11:42 Urine Color Yellow (Yellow) 10/27/20 Unknown Urine Turbidity Turbid (Clear) 10/27/20 Unknown Urine pH 8.0 (5.0-7.0) H 10/27/20 Unknown Ur Specific [place] 1.020 (1.003-1.030) 10/27/20 Unknown Urine Protein >500 mg/dL (Negative) 10/27/20 Unknown Urine Glucose (UA) Neg mg/dL (Negative) 10/27/20 Unknown Urine Ketones Neg mg/dL (Negative) 10/27/20 Unknown Urine Blood Sm (Negative) 10/27/20 Unknown Urine Nitrite Neg (Negative) 10/27/20 Unknown Urine Bilirubin Neg (Negative) 10/27/20 Unknown Urine Urobilinogen < 2.0 mg/dL (<2.0) 10/27/20 Unknown Ur Leukocyte Esterase Mod (Negative) 10/27/20 Unknown Urine WBC (Auto) > 182.0 /HPF (0.0-6.0) H 10/27/20 Unknown Urine RBC (Auto) 35.0 /HPF (0.0-6.0) 10/27/20 Unknown Urine WBC Clumps 3+ /HPF 10/27/20 Unknown Urine Mucus 3+ /HPF 10/27/20 Unknown Urine Yeast (Budding) 3+ /HPF 10/27/20 Unknown Vancomycin Trough 22.0 ug/mL (5.0-20.0) H 10/30/20 Unknown Salicylates < 0.3 mg/dL (2.8-20.0) L 10/26/20 17:28 Acetaminophen 5.0 ug/mL (10.0-30.0) L 10/26/20 17:28 Heparin-induced Plt Ab Negative (Negative) 11/03/20 11:01 UF Heparin High Dose 0 % Release 11/03/20 11:01 MOISES UFH Low Dose 0.1 2 % Release 11/03/20 11:01 MOISES UFH Low Dose 0.5 0 % Release 11/03/20 11:01 Coronavirus (PCR) Negative (Negative) 10/27/20 Unknown Blood Type O POSITIVE 10/30/20 09:30 Antibody Screen Negative 10/30/20 09:30 Crossmatch See Detail 10/30/20 09:30 Rivas/IV: Voiding Method Incontinent Active Medications - Current Medications Current Medications: Generic Name Dose Route Start Last Admin Trade Name Freq PRN Reason Stop Dose Admin Acetaminophen 650 mg 10/26/20 22:22 11/04/20 21:43 Acetaminophen 325 Mg Tab PO 650 mg Q4H PRN Administration Pain MILD(1-3)/Fever >100.5/TIERNEY Alteplase, Recombinant 2 mg 11/07/20 11:00 11/07/20 12:14 Alteplase 2 Mg Inj IV 11/09/20 11:01 2 mg ONCE MARSHALL Administration Amiodarone HCl 200 mg 11/08/20 10:00 11/08/20 09:18 Amiodarone 200 Mg Tab PO 200 mg DAILY MARSHALL Administration Lipase/Protease/Amylase 1 each 10/28/20 13:18 Lipase 10,500/Protease 25,000/Amylase 43,750 (Units) Dr Cap FEEDTUBE PRN PRN For Clogged Feeding Tube Enoxaparin Sodium 40 mg 11/07/20 10:00 11/08/20 09:17 Enoxaparin 40 Mg/0.4 Ml Inj SUB-Q 40 mg QDAY@1000 MARSHALL Administration Famotidine 20 mg 10/28/20 10:00 11/08/20 21:34 Famotidine 20 Mg/2 Ml Inj IV 20 mg BID MARSHALL Administration Fentanyl 50 mcg 10/26/20 17:25 11/04/20 18:12 Fentanyl 100 Mcg/2 Ml Inj IV 50 mcg Q10MIN PRN Administration ANALGESIA Fentanyl 50 mcg 10/27/20 10:39 11/06/20 15:36 Fentanyl 100 Mcg/2 Ml Inj IV 50 mcg Q2H PRN Administration Pain , Severe (7-10) Hydrophilic Ointment 1 applic 10/26/20 17:25 Lip Therapy Vaseline TP Q2HR PRN Dry Lips Norepinephrine 4 mg in 250 mls @ 112.5 mls/hr 10/28/20 01:00 11/06/20 01:06 Levophed Drip 4 Mg/Ns 250 Ml IV 0 mcg/min TITR MARSHALL 0 mls/hr Titration Protocol 30 MCG/MIN Vasopressin 20 unit/ Sodium 101 mls @ 9.09 mls/hr 10/28/20 16:00 Chloride IV TITR MARSHALL Protocol 0.03 UNITS/MIN Ceftriaxone Sodium 2 gm in 100 mls @ 200 mls/hr 10/29/20 13:00 11/08/20 13:21 Rocephin/Ns 2 Gm/100 Ml IV 11/12/20 13:29 200 mls/hr Q24H MARSHALL Administration Protocol Metronidazole 500 mg in 100 mls @ 100 mls/hr 10/29/20 14:00 11/09/20 05:45 Flagyl 500 Mg/100 Ml IV 11/12/20 14:59 100 mls/hr Q8H MARSHALL Administration Protocol Midodrine 10 mg 11/06/20 12:00 11/09/20 08:03 Midodrine 5 Mg Tab PO 10 mg TID@0800,1200,1600 MARSHALL Administration Multi-Ingred Cream/Lotion/Oil/Oint 1 applic 10/26/20 17:25 Mineral Oil/Petrolatum, White Ophth Oint 3.5 Gm OU Q4HR PRN Dry Eye(s) Ondansetron HCl 4 mg 10/26/20 22:22 Ondansetron 4 Mg/2 Ml Inj IV Q8H PRN Nausea And Vomiting Simple Syrup 15 ml 10/28/20 13:18 Simple Syrup 15 Ml FEEDTUBE PRN PRN Hypoglycemia Simple Syrup 30 ml 10/28/20 13:18 Simple Syrup 15 Ml FEEDTUBE PRN PRN Hypoglycemia Sodium Bicarbonate 325 mg 10/28/20 13:18 Sodium Bicarbonate 325 Mg Tab FEEDTUBE PRN PRN For Clogged Feeding Tube Sodium Chloride 5 ml 10/26/20 17:25 Sodium Chloride 0.9% 500 Ml Ivpb IV DIRECT PRN ARTERIAL LIBRARY TECHNICIAN Sodium Chloride 10 ml 10/27/20 10:00 11/08/20 21:35 Sodium Chloride 0.9% 10 Ml Flush Syringe IV 10 ml BID MARSHALL Administration Sodium Chloride 10 ml 10/26/20 22:22 Sodium Chloride 0.9% 10 Ml Flush Syringe IV PRN PRN LINE FLUSH Sodium Hypochlorite 1 applic 10/28/20 10:00 11/08/20 21:34 Sodium Hypochlorite, Dakin's 1/2 Strength (0.25%) 473 Ml Topical Soln TP 1 applicatio BID MARSHALL Administration Vancomycin HCl 125 mg 11/05/20 18:00 11/09/20 05:46 Vancomycin 250 Mg/10 Ml Oral Liqd PO 125 mg Q6HR MARSHALL Administration Protocol Nutrition/Malnutrition Assess - Dietary Evaluation Nutrition/Malnutrition Findings: Nutrition Notes Start: 10/27/20 09:15 Freq: Status: Active Protocol: Document 11/06/20 12:28 CW (Rec: 11/06/20 12:35 CW [id number]) Nutrition Notes Initial or Follow up Brief Note Current Diagnosis Acute Kidney Injury,Decubitus( Pressure Ulcer),Sepsis, Hypertension,Respiratory Failure,Hyperlipidemia Other Pertinent Diagnosis AMS, MRSA, Encephalopathy, [place] Acidosis, pneu ,FTT Current Diet Vital HP at 80 ml/hr Labs/Tests Na 148 BUN 32 BG 143 P 0.9 Pertinent Medications Na3PO4 Height 6 ft 2 in Weight 135 kg [place] Body Weight (kg) 86.36 BMI 38.2 Weight change and time frame Weight stable at this time Weight Status Obese Subjective/Other Information MD verbally requested increase of free water flush d/t hypernatremia. PT remains on mechanical vent. TF still being well tolerated. Percent of energy/protein needs met: 100%/100% Burn Absent Trauma Absent Nutrition Intervention Change Diet Order: Continue TF regime, Increase flush Nutrition Support: Vital HP at 80 ml/hr with a free water flush of 150 ml q4h Kcal 1,920 Protein (gm) 168 Fluid (mL) 1,605 Follow-Up By: 11/11/20 Additional Comments bed continues to rotate patient
[2020-11-09] MEDS: ENOXAPARIN 40 MG/0.4 ML INJ SUB-Q SCH (09:43)
[2020-11-09] MEDS: AMIODARONE 200 MG TAB PO SCH (09:43)
[2020-11-09] MEDS: FAMOTIDINE 20 MG/2 ML INJ IV SCH ×2 (09:43→21:28)
[2020-11-09] MEDS: SODIUM HYPOCHLORITE, DAKIN'S 1/2 STRENGTH (0.25%) 473 ML TOPICAL SOLN TP SCH ×2 (09:44→22:25)
--- NOTE | 2020-11-09 10:56 | Progress Note ---
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 Salicylates Acetaminophen Crossmatch 10/31/20 11/01/20 11/01/20 Unknown 03:40 04:21 WBC RBC Hgb Hct MCV MCHC RDW Plt Count Lymph % (Auto) Seg Neutrophils % Seg Neuts % (Manual) Lymphocytes % (Manual) Nucleated RBC % Seg Neutrophils # Seg Neutrophils # Man Lymphocytes # (Manual) Monocytes # (Manual) ABG pH 7.489 H POC ABG pCO2 POC ABG pO2 ABG pO2 77.2 L ABG HCO3 ABG O2 Saturation ABG Base Excess ABG Hemoglobin 7.1 L ABG Oxyhemoglobin ABG Potassium ABG Chloride ABG Glucose Oxyhemoglobin Carboxyhemoglobin Sodium Potassium 3.1 L Chloride 107.1 H Carbon Dioxide BUN 25 H Creatinine 0.5 L Glucose 148 H POC Glucose Lactic Acid 4.30 H* Calcium 6.0 L Phosphorus Magnesium Total Creatine Kinase Troponin T Total Protein Albumin Triglycerides LDL Cholesterol Direct HDL Cholesterol Arterial Blood Glucose Arterial Blood Ionized Calcium Urine pH Urine WBC (Auto) Vancomycin Trough Salicylates Acetaminophen Crossmatch 11/01/20 11/01/20 11/01/20 05:13 11:42 17:38 WBC RBC Hgb Hct MCV MCHC RDW Plt Count Lymph % (Auto) Seg Neutrophils % Seg Neuts % (Manual) Lymphocytes % (Manual) Nucleated RBC % Seg Neutrophils # Seg Neutrophils # Man Lymphocytes # (Manual) Monocytes # (Manual) ABG pH POC ABG pCO2 POC ABG pO2 ABG pO2 ABG HCO3 ABG O2 Saturation ABG Base Excess ABG Hemoglobin ABG Oxyhemoglobin ABG Potassium ABG Chloride ABG Glucose Oxyhemoglobin Carboxyhemoglobin Sodium Potassium Chloride Carbon Dioxide BUN Creatinine Glucose POC Glucose 139 H 139 H 161 H Lactic Acid Calcium Phosphorus Magnesium Total Creatine Kinase Troponin T Total Protein Albumin Triglycerides LDL Cholesterol Direct HDL Cholesterol Arterial Blood Glucose Arterial Blood Ionized Calcium Urine pH Urine WBC (Auto) Vancomycin Trough Salicylates Acetaminophen Crossmatch 11/01/20 11/01/20 11/02/20 23:20 Unknown 04:30 WBC 18.2 H RBC 3.27 L Hgb 9.9 L Hct 30.1 L D MCV MCHC RDW 15.7 H Plt Count 34 L Lymph % (Auto) Seg Neutrophils % Seg Neuts % (Manual) Lymphocytes % (Manual) Nucleated RBC % Seg Neutrophils # Seg Neutrophils # Man Lymphocytes # (Manual) Monocytes # (Manual) ABG pH 7.456 H POC ABG pCO2 POC ABG pO2 ABG pO2 ABG HCO3 ABG O2 Saturation ABG Base Excess ABG Hemoglobin 9.2 L ABG Oxyhemoglobin ABG Potassium ABG Chloride ABG Glucose Oxyhemoglobin Carboxyhemoglobin Sodium Potassium Chloride Carbon Dioxide BUN Creatinine Glucose POC Glucose 168 H Lactic Acid Calcium Phosphorus Magnesium Total Creatine Kinase Troponin T Total Protein Albumin Triglycerides LDL Cholesterol Direct HDL Cholesterol Arterial Blood Glucose Arterial Blood Ionized Calcium Urine pH Urine WBC (Auto) Vancomycin Trough Salicylates Acetaminophen Crossmatch 11/02/20 11/02/20 11/02/20 06:29 08:40 08:40 WBC 16.6 H RBC 2.87 L Hgb 8.8 L Hct 26.6 L MCV MCHC RDW 15.8 H Plt Count 30 L Lymph % (Auto) Seg Neutrophils % Seg Neuts % (Manual) 97.0 H Lymphocytes % (Manual) 2.0 L Nucleated RBC % 1.0 H Seg Neutrophils # Seg Neutrophils # Man 16.1 H Lymphocytes # (Manual) 0.3 L Monocytes # (Manual) ABG pH POC ABG pCO2 POC ABG pO2 ABG pO2 ABG HCO3 ABG O2 Saturation ABG Base Excess ABG Hemoglobin ABG Oxyhemoglobin ABG Potassium ABG Chloride ABG Glucose Oxyhemoglobin Carboxyhemoglobin Sodium Potassium 2.4 L* D Chloride 110.2 H Carbon Dioxide BUN 23 H Creatinine 0.4 L Glucose 154 H POC Glucose 131 H Lactic Acid Calcium 6.1 L Phosphorus Magnesium 1.50 L Total Creatine Kinase Troponin T Total Protein Albumin Triglycerides LDL Cholesterol Direct HDL Cholesterol Arterial Blood Glucose Arterial Blood Ionized Calcium Urine pH Urine WBC (Auto) Vancomycin Trough Salicylates Acetaminophen Crossmatch 11/02/20 11/02/20 11/02/20 13:17 17:25 18:05 WBC RBC Hgb Hct MCV MCHC RDW Plt Count Lymph % (Auto) Seg Neutrophils % Seg Neuts % (Manual) Lymphocytes % (Manual) Nucleated RBC % Seg Neutrophils # Seg Neutrophils # Man Lymphocytes # (Manual) Monocytes # (Manual) ABG pH POC ABG pCO2 POC ABG pO2 ABG pO2 ABG HCO3 ABG O2 Saturation ABG Base Excess ABG Hemoglobin ABG Oxyhemoglobin ABG Potassium ABG Chloride ABG Glucose Oxyhemoglobin Carboxyhemoglobin Sodium Potassium 3.1 L D Chloride Carbon Dioxide BUN Creatinine Glucose POC Glucose 134 H 140 H Lactic Acid Calcium Phosphorus Magnesium Total Creatine Kinase Troponin T Total Protein Albumin Triglycerides LDL Cholesterol Direct HDL Cholesterol Arterial Blood Glucose Arterial Blood Ionized Calcium Urine pH Urine WBC (Auto) Vancomycin Trough Salicylates Acetaminophen Crossmatch 11/02/20 11/03/20 11/03/20 23:36 04:15 05:07 WBC RBC Hgb Hct MCV MCHC RDW Plt Count Lymph % (Auto) Seg Neutrophils % Seg Neuts % (Manual) Lymphocytes % (Manual) Nucleated RBC % Seg Neutrophils # Seg Neutrophils # Man Lymphocytes # (Manual) Monocytes # (Manual) ABG pH POC ABG pCO2 POC ABG pO2 ABG pO2 ABG HCO3 ABG O2 Saturation ABG Base Excess ABG Hemoglobin ABG Oxyhemoglobin ABG Potassium ABG Chloride ABG Glucose Oxyhemoglobin Carboxyhemoglobin Sodium Potassium 3.0 L Chloride 111.8 H Carbon Dioxide BUN 24 H Creatinine 0.3 L Glucose 141 H POC Glucose 127 H 156 H Lactic Acid Calcium 5.8 L* Phosphorus Magnesium 1.60 L Total Creatine Kinase Troponin T Total Protein Albumin Triglycerides LDL Cholesterol Direct HDL Cholesterol Arterial Blood Glucose Arterial Blood Ionized Calcium Urine pH Urine WBC (Auto) Vancomycin Trough Salicylates Acetaminophen Crossmatch 11/03/20 11/03/20 11/04/20 11:14 17:31 00:17 WBC RBC Hgb Hct MCV MCHC RDW Plt Count Lymph % (Auto) Seg Neutrophils % Seg Neuts % (Manual) Lymphocytes % (Manual) Nucleated RBC % Seg Neutrophils # Seg Neutrophils # Man Lymphocytes # (Manual) Monocytes # (Manual) ABG pH POC ABG pCO2 POC ABG pO2 ABG pO2 ABG HCO3 ABG O2 Saturation ABG Base Excess ABG Hemoglobin ABG Oxyhemoglobin ABG Potassium ABG Chloride ABG Glucose Oxyhemoglobin Carboxyhemoglobin Sodium Potassium Chloride Carbon Dioxide BUN Creatinine Glucose POC Glucose 137 H 151 H 156 H Lactic Acid Calcium Phosphorus Magnesium Total Creatine Kinase Troponin T Total Protein Albumin Triglycerides LDL Cholesterol Direct HDL Cholesterol Arterial Blood Glucose Arterial Blood Ionized Calcium Urine pH Urine WBC (Auto) Vancomycin Trough Salicylates Acetaminophen Crossmatch 11/04/20 11/04/20 11/04/20 05:34 05:34 11:16 WBC 21.9 H RBC 2.67 L Hgb 8.2 L Hct 24.8 L MCV MCHC RDW 15.6 H Plt Count 48 L Lymph % (Auto) Seg Neutrophils % Seg Neuts % (Manual) Lymphocytes % (Manual) Nucleated RBC % Seg Neutrophils # Seg Neutrophils # Man Lymphocytes # (Manual) Monocytes # (Manual) ABG pH POC ABG pCO2 POC ABG pO2 ABG pO2 ABG HCO3 ABG O2 Saturation ABG Base Excess ABG Hemoglobin ABG Oxyhemoglobin ABG Potassium ABG Chloride ABG Glucose Oxyhemoglobin Carboxyhemoglobin Sodium 146 H Potassium Chloride 114.6 H Carbon Dioxide BUN 29 H Creatinine 0.3 L Glucose 173 H POC Glucose 156 H Lactic Acid Calcium 5.7 L* Phosphorus Magnesium Total Creatine Kinase Troponin T Total Protein Albumin Triglycerides LDL Cholesterol Direct HDL Cholesterol Arterial Blood Glucose Arterial Blood Ionized Calcium Urine pH Urine WBC (Auto) Vancomycin Trough Salicylates Acetaminophen Crossmatch 11/04/20 11/04/20 11/04/20 11:42 17:18 23:12 WBC RBC Hgb Hct MCV MCHC RDW Plt Count Lymph % (Auto) Seg Neutrophils % Seg Neuts % (Manual) Lymphocytes % (Manual) Nucleated RBC % Seg Neutrophils # Seg Neutrophils # Man Lymphocytes # (Manual) Monocytes # (Manual) ABG pH 7.525 H POC ABG pCO2 28.9 L POC ABG pO2 64.3 L ABG pO2 ABG HCO3 ABG O2 Saturation ABG Base Excess ABG Hemoglobin 8.2 L ABG Oxyhemoglobin ABG Potassium 3.3 L ABG Chloride 115.0 H ABG Glucose 165 H Oxyhemoglobin Carboxyhemoglobin Sodium Potassium Chloride Carbon Dioxide BUN Creatinine Glucose POC Glucose 144 H 155 H Lactic Acid Calcium Phosphorus Magnesium Total Creatine Kinase Troponin T Total Protein Albumin Triglycerides LDL Cholesterol Direct HDL Cholesterol Arterial Blood Glucose 165 H Arterial Blood Ionized Calcium 4.0 L Urine pH Urine WBC (Auto) Vancomycin Trough Salicylates Acetaminophen Crossmatch 11/05/20 11/05/20 11/05/20 04:48 04:48 05:57 WBC 17.4 H RBC 2.49 L Hgb 7.8 L Hct 23.5 L MCV MCHC RDW 16.0 H Plt Count 69 L Lymph % (Auto) Seg Neutrophils % Seg Neuts % (Manual) Lymphocytes % (Manual) Nucleated RBC % Seg Neutrophils # Seg Neutrophils # Man Lymphocytes # (Manual) Monocytes # (Manual) ABG pH POC ABG pCO2 POC ABG pO2 ABG pO2 ABG HCO3 ABG O2 Saturation ABG Base Excess ABG Hemoglobin ABG Oxyhemoglobin ABG Potassium ABG Chloride ABG Glucose Oxyhemoglobin Carboxyhemoglobin Sodium 147 H Potassium 3.5 L Chloride 115.4 H Carbon Dioxide BUN 34 H Creatinine 0.3 L Glucose 154 H POC Glucose 146 H Lactic Acid Calcium 6.1 L Phosphorus 2.00 L Magnesium Total Creatine Kinase Troponin T Total Protein Albumin Triglycerides LDL Cholesterol Direct HDL Cholesterol Arterial Blood Glucose Arterial Blood Ionized Calcium Urine pH Urine WBC (Auto) Vancomycin Trough Salicylates Acetaminophen Crossmatch 11/05/20 11/05/20 11/05/20 11:33 17:52 23:37 WBC RBC Hgb Hct MCV MCHC RDW Plt Count Lymph % (Auto) Seg Neutrophils % Seg Neuts % (Manual) Lymphocytes % (Manual) Nucleated RBC % Seg Neutrophils # Seg Neutrophils # Man Lymphocytes # (Manual) Monocytes # (Manual) ABG pH POC ABG pCO2 POC ABG pO2 ABG pO2 ABG HCO3 ABG O2 Saturation ABG Base Excess ABG Hemoglobin ABG Oxyhemoglobin ABG Potassium ABG Chloride ABG Glucose Oxyhemoglobin Carboxyhemoglobin Sodium Potassium Chloride Carbon Dioxide BUN Creatinine Glucose POC Glucose 144 H 136 H 151 H Lactic Acid Calcium Phosphorus Magnesium Total Creatine Kinase Troponin T Total Protein Albumin Triglycerides LDL Cholesterol Direct HDL Cholesterol Arterial Blood Glucose Arterial Blood Ionized Calcium Urine pH Urine WBC (Auto) Vancomycin Trough Salicylates Acetaminophen Crossmatch 11/06/20 11/06/20 11/06/20 05:36 06:45 06:45 WBC 15.0 H RBC 2.33 L Hgb 7.2 L Hct 22.1 L MCV 95 H MCHC RDW 16.2 H Plt Count 103 L Lymph % (Auto) Seg Neutrophils % Seg Neuts % (Manual) Lymphocytes % (Manual) Nucleated RBC % Seg Neutrophils # Seg Neutrophils # Man Lymphocytes # (Manual) Monocytes # (Manual) ABG pH POC ABG pCO2 POC ABG pO2 ABG pO2 ABG HCO3 ABG O2 Saturation ABG Base Excess ABG Hemoglobin ABG Oxyhemoglobin ABG Potassium ABG Chloride ABG Glucose Oxyhemoglobin Carboxyhemoglobin Sodium 148 H Potassium Chloride 118.2 H Carbon Dioxide BUN 32 H Creatinine 0.4 L Glucose 153 H POC Glucose 140 H Lactic Acid Calcium 6.4 L Phosphorus 0.90 L* D Magnesium Total Creatine Kinase Troponin T Total Protein 5.0 L Albumin 1.4 L Triglycerides LDL Cholesterol Direct HDL Cholesterol Arterial Blood Glucose Arterial Blood Ionized Calcium Urine pH Urine WBC (Auto) Vancomycin Trough Salicylates Acetaminophen Crossmatch 11/06/20 11/06/20 11/06/20 11:32 17:37 23:19 WBC RBC Hgb Hct MCV MCHC RDW Plt Count Lymph % (Auto) Seg Neutrophils % Seg Neuts % (Manual) Lymphocytes % (Manual) Nucleated RBC % Seg Neutrophils # Seg Neutrophils # Man Lymphocytes # (Manual) Monocytes # (Manual) ABG pH POC ABG pCO2 POC ABG pO2 ABG pO2 ABG HCO3 ABG O2 Saturation ABG Base Excess ABG Hemoglobin ABG Oxyhemoglobin ABG Potassium ABG Chloride ABG Glucose Oxyhemoglobin Carboxyhemoglobin Sodium Potassium Chloride Carbon Dioxide BUN Creatinine Glucose POC Glucose 132 H 133 H 145 H Lactic Acid Calcium Phosphorus Magnesium Total Creatine Kinase Troponin T Total Protein Albumin Triglycerides LDL Cholesterol Direct HDL Cholesterol Arterial Blood Glucose Arterial Blood Ionized Calcium Urine pH Urine WBC (Auto) Vancomycin Trough Salicylates Acetaminophen Crossmatch 11/07/20 11/07/20 11/07/20 12:55 16:45 16:45 WBC 12.0 H RBC 3.63 L Hgb 11.4 L D Hct MCV 104 H MCHC 30 L RDW 18.0 H Plt Count 133 L Lymph % (Auto) Seg Neutrophils % Seg Neuts % (Manual) Lymphocytes % (Manual) Nucleated RBC % Seg Neutrophils # Seg Neutrophils # Man Lymphocytes # (Manual) Monocytes # (Manual) ABG pH POC ABG pCO2 POC ABG pO2 ABG pO2 ABG HCO3 ABG O2 Saturation ABG Base Excess ABG Hemoglobin 7.7 L ABG Oxyhemoglobin ABG Potassium ABG Chloride ABG Glucose Oxyhemoglobin 94.9 L Carboxyhemoglobin Sodium 149 H Potassium Chloride 119.8 H Carbon Dioxide BUN 31 H Creatinine 0.4 L Glucose 130 H POC Glucose Lactic Acid Calcium 6.5 L Phosphorus Magnesium Total Creatine Kinase Troponin T Total Protein Albumin Triglycerides LDL Cholesterol Direct HDL Cholesterol Arterial Blood Glucose Arterial Blood Ionized Calcium Urine pH Urine WBC (Auto) Vancomycin Trough Salicylates Acetaminophen Crossmatch 11/07/20 11/08/20 11/08/20 17:23 00:12 06:11 WBC RBC Hgb Hct MCV MCHC RDW Plt Count Lymph % (Auto) Seg Neutrophils % Seg Neuts % (Manual) Lymphocytes % (Manual) Nucleated RBC % Seg Neutrophils # Seg Neutrophils # Man Lymphocytes # (Manual) Monocytes # (Manual) ABG pH POC ABG pCO2 POC ABG pO2 ABG pO2 ABG HCO3 ABG O2 Saturation ABG Base Excess ABG Hemoglobin ABG Oxyhemoglobin ABG Potassium ABG Chloride ABG Glucose Oxyhemoglobin Carboxyhemoglobin Sodium Potassium Chloride Carbon Dioxide BUN Creatinine Glucose POC Glucose 115 H 129 H 109 H Lactic Acid Calcium Phosphorus Magnesium Total Creatine Kinase Troponin T Total Protein Albumin Triglycerides LDL Cholesterol Direct HDL Cholesterol Arterial Blood Glucose Arterial Blood Ionized Calcium Urine pH Urine WBC (Auto) Vancomycin Trough Salicylates Acetaminophen Crossmatch 11/08/20 11/08/20 11/08/20 17:36 23:49 23:58 WBC RBC Hgb Hct MCV MCHC RDW Plt Count Lymph % (Auto) Seg Neutrophils % Seg Neuts % (Manual) Lymphocytes % (Manual) Nucleated RBC % Seg Neutrophils # Seg Neutrophils # Man Lymphocytes # (Manual) Monocytes # (Manual) ABG pH POC ABG pCO2 POC ABG pO2 ABG pO2 ABG HCO3 ABG O2 Saturation ABG Base Excess ABG Hemoglobin ABG Oxyhemoglobin ABG Potassium ABG Chloride ABG Glucose Oxyhemoglobin Carboxyhemoglobin Sodium Potassium Chloride Carbon Dioxide BUN Creatinine Glucose 138 H POC Glucose 38 L 36 L Lactic Acid Calcium Phosphorus Magnesium Total Creatine Kinase Troponin T Total Protein Albumin Triglycerides LDL Cholesterol Direct HDL Cholesterol Arterial Blood Glucose Arterial Blood Ionized Calcium Urine pH Urine WBC (Auto) Vancomycin Trough Salicylates Acetaminophen Crossmatch 11/09/20 11/09/20 06:00 06:00 WBC 13.1 H RBC 2.35 L Hgb 7.6 L D Hct 22.9 L D MCV 97 H MCHC RDW 16.8 H Plt Count Lymph % (Auto) 9.1 L Seg Neutrophils % 84.8 H Seg Neuts % (Manual) Lymphocytes % (Manual) Nucleated RBC % Seg Neutrophils # 11.1 H Seg Neutrophils # Man Lymphocytes # (Manual) Monocytes # (Manual) ABG pH POC ABG pCO2 POC ABG pO2 ABG pO2 ABG HCO3 ABG O2 Saturation ABG Base Excess ABG Hemoglobin ABG Oxyhemoglobin ABG Potassium ABG Chloride ABG Glucose Oxyhemoglobin Carboxyhemoglobin Sodium 150 H Potassium 3.4 L D Chloride 119.2 H Carbon Dioxide BUN 30 H Creatinine 0.4 L Glucose 137 H POC Glucose Lactic Acid Calcium 7.2 L Phosphorus Magnesium Total Creatine Kinase Troponin T Total Protein Albumin Triglycerides LDL Cholesterol Direct HDL Cholesterol Arterial Blood Glucose Arterial Blood Ionized Calcium Urine pH Urine WBC (Auto) Vancomycin Trough Salicylates Acetaminophen Crossmatch Allied health notes reviewed: nursing
--- NOTE | 2020-11-09 12:14 | Progress Note ---
Assessment and Plan Cultures: 10/26/2020 tracheal aspirate culture: MRSA 10/26/2020 blood culture: Proteus 10/27/2020 urine culture: Mixed hien A/P: 75-year-old male, halfway resident with seizure disorder, hypertension, depression, hyperlipidemia, chronic encephalopathy was sent to the hospital with worsening mental status: #Septic shock, Proteus bacteremia: Off pressors, leukocytosis better. multifactorial from infected sacral decubitus ulcer, bilateral pneumonia, UTI. Worsening leukocytosis with acute diarrhea 1L loose stool overnight ? C. difficile, leukocytosis improving today #Acute diarrhea: ? C. difficile, improved on vancomycin p.o. Diarrhea improved, Cdiff test was not able to be done. #Necrotic, infected sacral decubitus ulcer: underwent debridement 10/29/2020, als o noted to have brittle coccyx consistent with osteomyelitis. #UTI: UA with significant pyuria. #Bilateral pneumonia: Noted on CT. Possibly some aspiration. Sputum culture positive for MRSA. Received vancomycin IV for 7 days. #FAZAL: Renally dose antibiotics. #Acute respiratory failure: on the vent. Extubated #PVD: SFA occlusion. Not a candidate for revascularization per vascular Recs: -Monitor leukocytosis which is improving -Continue empiric vancomycin 125 mg p.o. 4 times daily D5 of 10 -continue Ceftriaxone + Flagyl x 14 days from debridement D11 of 14 (prolonged abx not of much benefit even though there is osteomyelitis, main stay will be offloading and wound care) will follow MD [facility] ([facility]) Office [phone] Subjective Date of service: 11/09/20 Principal diagnosis: Acute Resp Fail, Septic Shock, Sacral Ulcer, AF with RVR Interval history: Patient was extubated, no fever, no complaints. Objective - Exam Narrative Exam: General appearance: alert in NAD Eyes: anicteric sclerae, moist conjunctivae; no lid-lag; PERRLA HENT: Normocephalic, Atraumatic; normal external ears, nares open, oropharynx limited Neck: supple, tracheal midline, no JVD Lungs: Diminished breath sound bilaterally CV: RRR Abdomen: Soft, nontender Extremities: Bilateral upper extremity and lower extremity edema Skin: No rash. Extensive scrotal edema Psych: No agitated Neuro: Alert, open eyes, follows commands - Constitutional Vitals: Vital Signs Temp Pulse Resp BP Pulse Ox 99.1 F 86 24 108/57 98 11/09/20 12:05 11/09/20 11:00 11/09/20 11:00 11/09/20 11:00 11/09/20 11:00 Temperature -Last 24 Hours Temperature 99.1 F Temperature 98.3 F Temperature 99.8 F Temperature 97.8 F Temperature 99.4 F Temperature 97.7 F - Labs CBC & Chem 7: 11/09/20 06:00 11/09/20 06:00 Labs: Abnormal lab results 11/08/20 11/08/20 11/08/20 Range/Units 17:36 23:49 23:58 WBC (4.5-11.0) K/mm3 RBC (3.65-5.03) M/mm3 Hgb (11.8-15.2) gm/dl Hct (35.5-45.6) % MCV (84-94) fl RDW (13.2-15.2) % Lymph % (Auto) (13.4-35.0) % Seg Neutrophils % (40.0-70.0) % Seg Neutrophils # (1.8-7.7) K/mm3 Sodium (137-145) mmol/L Potassium (3.6-5.0) mmol/L Chloride (98-107) mmol/L BUN (9-20) mg/dL Creatinine (0.8-1.3) mg/dL Glucose 138 H (75-100) mg/dL POC Glucose 38 L 36 L (70-105) mg/dL Calcium (8.4-10.2) mg/dL 11/09/20 11/09/20 11/09/20 Range/Units 05:33 06:00 06:00 WBC 13.1 H (4.5-11.0) K/mm3 RBC 2.35 L (3.65-5.03) M/mm3 Hgb 7.6 L D (11.8-15.2) gm/dl Hct 22.9 L D (35.5-45.6) % MCV 97 H (84-94) fl RDW 16.8 H (13.2-15.2) % Lymph % (Auto) 9.1 L (13.4-35.0) % Seg Neutrophils % 84.8 H (40.0-70.0) % Seg Neutrophils # 11.1 H (1.8-7.7) K/mm3 Sodium 150 H (137-145) mmol/L Potassium 3.4 L D (3.6-5.0) mmol/L Chloride 119.2 H (98-107) mmol/L BUN 30 H (9-20) mg/dL Creatinine 0.4 L (0.8-1.3) mg/dL Glucose 137 H (75-100) mg/dL POC Glucose 58 L (70-105) mg/dL Calcium 7.2 L (8.4-10.2) mg/dL 11/09/20 Range/Units 06:08 WBC (4.5-11.0) K/mm3 RBC (3.65-5.03) M/mm3 Hgb (11.8-15.2) gm/dl Hct (35.5-45.6) % MCV (84-94) fl RDW (13.2-15.2) % Lymph % (Auto) (13.4-35.0) % Seg Neutrophils % (40.0-70.0) % Seg Neutrophils # (1.8-7.7) K/mm3 Sodium (137-145) mmol/L Potassium (3.6-5.0) mmol/L Chloride (98-107) mmol/L BUN (9-20) mg/dL Creatinine (0.8-1.3) mg/dL Glucose (75-100) mg/dL POC Glucose 122 H (70-105) mg/dL Calcium (8.4-10.2) mg/dL
[2020-11-09] MEDS: cefTRIAXone/NS 2 GM/100 ML 2 GM/100 ML BAG IV SCH (13:03)
[2020-11-10] MEDS: VANCOMYCIN 250 MG/10 ML ORAL LIQD PO SCH ×4 (00:42→23:27)
[2020-11-10] MEDS: metroNIDAZOLE/NS 500 MG/100 ML 500 MG/100 ML BAG IV SCH ×3 (06:24→21:55)
--- NOTE | 2020-11-10 08:37 | Progress Note ---
Assessment and Plan Assessment and plan: This is a 75-year-old male who is a assisted resident with seizure disorder, hypertension, depression, hyperlipidemia, hypoglycemia, dysphagia, and encephalopathy who presents to the emergency department on 10/26 via EMS for tachypnea, dry mucous membranes and hypoxia. Patient was hypotensive, febrile to 103 degrees and hypoxic in the emergency department therefore he was intubated and central IV access was obtained. Patient received 3.5 L of IV fluid in the emergency department. Patient was admitted to the hospital service with consults to CCM, surgery, WOCN and ID for Sepsis, acute kidney injury, urinary tract infection, acute respiratory failure, electrolyte imbalances, infected sacral wound and bilateral pneumonia. Sepsis Acute respiratory failure Infected sacral wound s/p debridement with surgery Generalized anasarca possible acute diastolic congestive heart failure Anemia s/p 2 units prbc Proteus bacteremia MRSA pneumonia Urine tract infection Acute kidney injury with vasomotor Nephropathy Acute Diarrhea ?C.diff- Test was not peformed Leukocytosis SFA occlusion - Not a candidate for surgery per Vascular SVT- Resolved Hyponatremia Hyperchloremia Hypocalcemia Hypomagnesemia Hypophosphatemia Lactic acidosis 10/27: Patient received additional 4 L LR for fluid resuscitation and CV monitoring was initiated. Patient is on Levophed. ID added Flagyl to vancomycin and cefepime. His trach aspirate grew staph coccus aureus. At the time my examination patient the fentanyl drip was held by RN and he was on 14 MCG of Levophed. This morning he was on assist control 450/20/6/.100. We will give additional bolus of fluids with goal CVP 10-12 and repeat labs in AM. Surgery was consulted to possible debridement. 10/28: Overnight it was noted that patient went into SVT and he was given adenosine 6 mg/12 mg / 12 mg once and was started on a Cardizem drip after no response to amnio bolus and cardiology was consulted. Currently patient remains on Levophed drip and is hypotensive and received additional 2 L of bolus for goal CVP of 10-12. Infectious disease changed cefepime/Flagyl to meropenem for GNR in his blood cultures 09/04 and will continue vancomycin. Patient currently was not well controlled on max Cardizem and cardiology initiated amiodarone. Patient still is very tachycardic. Patient is hypomagnesemic and we will replete his Mg and recheck level. We will give the patient additional to complete resolve LR this afternoon. Patient has a standing order per [facility] to bolus the patient with LR for CVP goal of 10-12. This morning he is hyperchlormeic, metabolic acidotic (bicarb drip initiated) and his BUN/creatinine slightly elevated. Patient still remains lactic acidotic. 10/29: Patient's blood culture speciated to Proteus and his tracheal aspirate is MRSA. He is currently on ceftriaxone, Flagyl and vancomycin. Patient heart rate consistently is 110-150s and cardiology has given him an amiodarone bolus today and he remains on amiodarone drip. He looks much started on IV digoxin. This morning 4 L LR bolus was ordered and we will bolus an additional 4 L of LR this afternoon. Patient still has lactic acidosis, metabolic acidosis, leukocytosis and hyperchloremia. On examination this morning patient is more edematous and he remains on Levophed and amnio drip. 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 Remains on amio, levo and sedated with fentanyl. He is hypokalemic today which was repleted, h/h 02/18 and he is being type and crossed today with 2 units PRBC ordered to be transfused. Plt drop noted, heparin discontinued and HIT ordered. Bicarb gtt discontinued. No acute events overnight. 10/31: Patient hypomagnesemia today which was repleted and cardiology has changed his IV amiodarone to p.o. Patient will get albumin per [facility]. At the time my examination patient is on assist control 450/20/6/0.40. 11/03: At the time my examination patient is on assist control 450/20/6/0.25 and sedated with fentanyl and on Levophed at 4.Patient's leukocytosis is improving he received Albumin this weekend. Patient is hypokalemic, hypomagnesemic, hypocalcemic today. We will repeat his electrolytes and recheck a BMP in the a.m. Patient received 2 units PRBC on 10/30 and his hemoglobin has been trending down. We will recheck in the a.m. 11/04: At the time of my examination patient was on Levophed 3 mcg and on VZV/CPAP 450/20/6/0.35. Patient still has leukocytosis, respiratory alkalosis, hyponatremia, hypochloremia, hypocalcemia. Today his magnesium and potassium repleted with bolus of potassium 4/magnesium 2. He received 60 mcg KCl p.o., 40 mEq of KCl IV and 2 g of magnesium sulfate. We will recheck BMP and mag and a.m. Surgery has deemed the patient to unstable for further debulking. We also consulted vascular surgery for PVD as patient has discoloration to BLE /feet. 11/05: Vascular surgery will obtain bilateral lower extremity arterial duplex to evaluate arterial flow and recommends adding as FWF to tube feedings in assisting to wean off of vasopressors. Patient has hypokalemia, hypophosphatemia and normal to low magnesium. Magnesium, potassium and phosphate have been repleted. Patient still remains on ventilator support but on CPAP trial this morning. Patient HIT is still pending. This morning at the time of my examination patient was on assist-control 450/20/6/0.35 and he tolerated CPAP trial for 4 hours yesterday. He was on Levophed 0.5 and his rectal tube output was noted at 1000 mL. 11/06: This morning patient was on a CPAP trial and became hypoxic with SPO2 into the 80s and was switched back to assist control. Patient's vent settings are assist control tidal and 450, rate 20, PEEP 6, FiO2 0.25. Today patient has leukocytosis, hypernatremia, hyperchloremia, hypocalcemia and hypophosphatemia. We will repeat a phosphate. His free water flushes have been increased and his magnesium has been repleted again. Patient has been started on Lovenox given improvement in his platelet count and on midodrine to help keep Levophed off. Infectious disease will continue p.o. vancomycin for total of 10 days. 11/07: Patient failed his CPAP trial yesterday and has been placed on CPAP 05/06 again this morning by RT. Overnight patient was rested on assist control tolerance by 50, rate of 20, pressure support 6 and FiO2 30%. His lab work is still pending for this morning. On repeat his phosphorus was 4.50 yesterday and repletion was discontinued. 11/08/2020; patient is off pressors currently on midodrine. Patient is on ceftriaxone and vancomycin. Patient is on assist control. Patient was evaluated by vascular surgery for peripheral vascular disease with SFA occlusion and recommend no intervention at this time. Prognosis is guarded. Patient is on 2 L of intranasal oxygen. We will put speech therapy evaluation. 11/09/2020; patient is currently off pressors and on midodrine. Continue with ceftriaxone, Flagyl and vancomycin per ID recommendation. Patient's blood culture grew Proteus mirabilis and tracheal aspirate grew MRSA. Patient was evaluated by vascular surgery for PVD with SFA occlusion and recommend no intervention at this time. Patient is on 2 L of intranasal oxygen. Currently patient is on tube feeding and follow speech therapy evaluation. 11/10: Overnight noted to have increased RR, ? Awaiting speech eval considering patient still on Tube feeds. Continue to monitor Hypernatremia. Antibiotics today will be D12/14. Will continue discharge planning on discussion with CM. Patient nonrebreather. Possibly back on congestive heart failure will need appropriate diuresis. Transferred back to [facility]. Discussed with interlibrary loan services librarian and also with cardiology. The high probability of a clinically significant, sudden or life threatening deterioration of the [pulmonary, cardiac] system(s) required my full and direct attention, intervention and personal management. The aggregate critical care time was [35] minutes. This time is in addition to time spent performing reported procedures but includes the following: [X] Data Review and interpretation [X] Patient assessment and monitoring of vital signs [X] Documentation [X] Medication orders and management History Interval history: Patient seen and examined also discussed with interlibrary loan services librarian this morning patient nonrebreather due to hypoxia increased work of breathing. He is still with appropriate mentation although speech is garbled. He does verbalize understanding I did discuss with his cousin prior to his transfer to [facility] Hospitalist Physical - Physical exam Narrative exam: VITAL SIGNS: Reviewed. GENERAL: The patient appears normally developed, Vital signs as documented. HEAD: No signs of head trauma. EYES: Pupils are equal. Extraocular motions intact. EARS: Hearing grossly intact. MOUTH: Oropharynx is normal. NECK: No adenopathy, no JVD. CHEST: Chest with crackles breath sounds bilaterally. No wheezes CARDIAC: Regular rate and rhythm. S1 and S2, without murmurs, gallops, or rubs. VASCULAR: +2 bilateral pitting edema. Peripheral pulses normal and equal in all extremities. ABDOMEN: Soft, non tender and non distended. No rebound or guarding, and no masses palpated. Bowel Sounds normal. MUSCULOSKELETAL: Good range of motion of all major joints. Extremities without clubbing, cyanosis. +2 bilateral pitting edema. NEUROLOGIC EXAM: Awake but lethargic and oriented x 3 No focal sensory or strength deficits. Speech garbled speech. Follows commands. PSYCHIATRIC: Mood normal. SKIN: detail exam as documented in skin assessment - Constitutional Vitals: Temp Pulse Resp BP Pulse Ox 97.6 F 76 20 150/69 95 11/10/20 04:32 11/10/20 04:32 11/10/20 04:32 11/10/20 04:32 11/10/20 08:30 General appearance: Present: no acute distress, other (Intubated, resting comfortably) HEART Score - HEART Score EKG: Non-specific Age: > 65 Risk factors: > 3 risk factors or hx of atherosclerotic disease Troponin: Troponin T 0.062 ng/mL (0.00-0.029) H 10/26/20 17:25 Troponin: < normal limit - Critical Actions Critical Actions: 4-6 pts:12-16.6% risk of adverse cardiac event. Should be admitted Results - Labs CBC & Chem 7: 11/09/20 06:00 11/09/20 06:00 Labs: Laboratory Last Values WBC 13.1 K/mm3 (4.5-11.0) H 11/09/20 06:00 RBC 2.35 M/mm3 (3.65-5.03) L 11/09/20 06:00 Hgb 7.6 gm/dl (11.8-15.2) L D 11/09/20 06:00 Hct 22.9 % (35.5-45.6) L D 11/09/20 06:00 MCV 97 fl (84-94) H 11/09/20 06:00 MCH 32 pg (28-32) 11/09/20 06:00 MCHC 33 % (32-34) 11/09/20 06:00 RDW 16.8 % (13.2-15.2) H 11/09/20 06:00 Plt Count 224 K/mm3 (140-440) 11/09/20 06:00 Lymph % (Auto) 9.1 % (13.4-35.0) L 11/09/20 06:00 Mcdonald % (Auto) 5.4 % (0.0-7.3) 11/09/20 06:00 Eos % (Auto) 0.3 % (0.0-4.3) 11/09/20 06:00 Baso % (Auto) 0.4 % (0.0-1.8) 11/09/20 06:00 Lymph # (Auto) 1.2 K/mm3 (1.2-5.4) 11/09/20 06:00 Mcdonald # (Auto) 0.7 K/mm3 (0.0-0.8) 11/09/20 06:00 Eos # (Auto) 0.0 K/mm3 (0.0-0.4) 11/09/20 06:00 Baso # (Auto) 0.0 K/mm3 (0.0-0.1) 11/09/20 06:00 Add Manual Diff Complete 11/02/20 08:40 Total Counted 100 11/02/20 08:40 Seg Neutrophils % 84.8 % (40.0-70.0) H 11/09/20 06:00 Seg Neuts % (Manual) 97.0 % (40.0-70.0) H 11/02/20 08:40 Band Neutrophils % 17.0 % 10/27/20 03:30 Lymphocytes % (Manual) 2.0 % (13.4-35.0) L 11/02/20 08:40 Monocytes % (Manual) 1.0 % (0.0-7.3) 11/02/20 08:40 Eosinophils % (Manual) 2.0 % (0.0-4.3) 10/27/20 03:30 Metamyelocytes % 4.0 % 10/27/20 03:30 Nucleated RBC % 1.0 % (0.0-0.9) H 11/02/20 08:40 Seg Neutrophils # 11.1 K/mm3 (1.8-7.7) H 11/09/20 06:00 Seg Neutrophils # Man 16.1 K/mm3 (1.8-7.7) H 11/02/20 08:40 Band Neutrophils # 0.0 K/mm3 11/02/20 08:40 Lymphocytes # (Manual) 0.3 K/mm3 (1.2-5.4) L 11/02/20 08:40 Abs React Lymphs (Man) 0.0 K/mm3 11/02/20 08:40 Monocytes # (Manual) 0.2 K/mm3 (0.0-0.8) 11/02/20 08:40 Eosinophils # (Manual) 0.0 K/mm3 (0.0-0.4) 11/02/20 08:40 Basophils # (Manual) 0.0 K/mm3 (0.0-0.1) 11/02/20 08:40 Metamyelocytes # 0.0 K/mm3 11/02/20 08:40 Myelocytes # 0.0 K/mm3 11/02/20 08:40 Promyelocytes # 0.0 K/mm3 11/02/20 08:40 Blast Cells # 0.0 K/mm3 11/02/20 08:40 WBC Morphology Not Reportable 11/02/20 08:40 Hypersegmented Neuts Not Reportable 11/02/20 08:40 Hyposegmented Neuts Not Reportable 11/02/20 08:40 Hypogranular Neuts Not Reportable 11/02/20 08:40 Smudge Cells Not Reportable 11/02/20 08:40 Toxic Granulation Not Reportable 11/02/20 08:40 Toxic Vacuolation Not Reportable 11/02/20 08:40 Dohle Bodies Not Reportable 11/02/20 08:40 Pelger-Huet Anomaly Not Reportable 11/02/20 08:40 Kassi Rods Not Reportable 11/02/20 08:40 Platelet Estimate Consistent w auto 11/02/20 08:40 Clumped Platelets Not Reportable 11/02/20 08:40 Plt Clumps, EDTA Not Reportable 11/02/20 08:40 Large Platelets Not Reportable 11/02/20 08:40 Giant Platelets Not Reportable 11/02/20 08:40 Platelet Satelliting Not Reportable 11/02/20 08:40 Plt Morphology Comment Not Reportable 11/02/20 08:40 RBC Morphology Normal 11/02/20 08:40 Dimorphic RBCs Not Reportable 11/02/20 08:40 Polychromasia Not Reportable 11/02/20 08:40 Hypochromasia Not Reportable 11/02/20 08:40 Poikilocytosis Not Reportable 11/02/20 08:40 Anisocytosis Not Reportable 11/02/20 08:40 Microcytosis Not Reportable 11/02/20 08:40 Macrocytosis Not Reportable 11/02/20 08:40 Spherocytes Not Reportable 11/02/20 08:40 Pappenheimer Bodies Not Reportable 11/02/20 08:40 Sickle Cells Not Reportable 11/02/20 08:40 Target Cells Not Reportable 11/02/20 08:40 Tear Drop Cells Not Reportable 11/02/20 08:40 Ovalocytes Not Reportable 11/02/20 08:40 Helmet Cells Not Reportable 11/02/20 08:40 [place]inner Bodies Not Reportable 11/02/20 08:40 [place] Rings Not Reportable 11/02/20 08:40 Rhea Cells Not Reportable 11/02/20 08:40 Bite Cells Not Reportable 11/02/20 08:40 Crenated Cell Not Reportable 11/02/20 08:40 Elliptocytes Not Reportable 11/02/20 08:40 Acanthocytes (Spur) Not Reportable 11/02/20 08:40 Rouleaux Not Reportable 11/02/20 08:40 Hemoglobin C Crystals Not Reportable 11/02/20 08:40 Schistocytes Not Reportable 11/02/20 08:40 Malaria parasites Not Reportable 11/02/20 08:40 Richard Bodies Not Reportable 11/02/20 08:40 Hem Pathologist Commnt No 11/02/20 08:40 APTT 27.9 Sec. (24.2-36.6) 10/26/20 17:25 Heparin Anti-Xa, Unfract Negative (Negative) 11/03/20 11:01 ABG pH 7.440 pH Units (7.350-7.450) 11/07/20 12:55 POC ABG pCO2 28.9 mmHg (32.0-48.0) L 11/04/20 11:42 ABG pCO2 35.4 mm Hg 11/07/20 12:55 POC ABG pO2 64.3 mmHg (83-108) L 11/04/20 11:42 ABG pO2 82.0 mm Hg (80.0-90.0) 11/07/20 12:55 POC ABG HCO3 23.3 11/04/20 11:42 ABG HCO3 23.4 mmol/L (20.0-26.0) 11/07/20 12:55 ABG O2 Saturation 96.9 % (95.0-99.0) 11/07/20 12:55 ABG O2 Content 10.5 (0.0-44) 11/07/20 12:55 POC ABG Base Excess 0.9 11/04/20 11:42 ABG Base Excess -0.5 mmol/L (-2.0-3.0) 11/07/20 12:55 ABG Hemoglobin 7.7 gm/dl (14.0-18.0) L 11/07/20 12:55 ABG Oxyhemoglobin 94 (94-98) 11/04/20 11:42 ABG Carboxyhemoglobin 1.4 % (0.0-5.0) 11/07/20 12:55 ABG Methemoglobin 0.6 % (0.0-1.5) 11/07/20 12:55 ABG Sodium 142.4 mmol/L (136.0-145.0) 11/04/20 11:42 ABG Potassium 3.3 mmol/L (3.40-4.50) L 11/04/20 11:42 ABG Chloride 115.0 mmol/L (98-107) H 11/04/20 11:42 ABG Glucose 165 mg/dL (65-95) H 11/04/20 11:42 Oxyhemoglobin 94.9 % (95.0-99.0) L 11/07/20 12:55 Carboxyhemoglobin 1 (0.5-1.5) 11/04/20 11:42 FiO2 30 % 11/07/20 12:55 FiO2 % 35 11/04/20 11:42 Sodium 150 mmol/L (137-145) H 11/09/20 06:00 Potassium 3.4 mmol/L (3.6-5.0) L D 11/09/20 06:00 Chloride 119.2 mmol/L (98-107) H 11/09/20 06:00 Carbon Dioxide 26 mmol/L (22-30) 11/09/20 06:00 Anion Gap 8 mmol/L 11/09/20 06:00 BUN 30 mg/dL (9-20) H 11/09/20 06:00 Creatinine 0.4 mg/dL (0.8-1.3) L 11/09/20 06:00 Estimated GFR > 60 ml/min 11/09/20 06:00 BUN/Creatinine Ratio 75 % 11/09/20 06:00 Glucose 137 mg/dL (75-100) H 11/09/20 06:00 POC Glucose 120 mg/dL (70-105) H 11/09/20 22:16 Hemoglobin A1c 5.5 % (4-6) 10/27/20 04:42 Lactic Acid 4.30 mmol/L (0.7-2.0) H* 10/31/20 Unknown Calcium 7.2 mg/dL (8.4-10.2) L 11/09/20 06:00 Phosphorus 4.50 mg/dL (2.5-4.5) D 11/06/20 13:03 Magnesium 1.80 mg/dL (1.7-2.3) 11/07/20 16:45 Total Bilirubin < 0.20 mg/dL (0.1-1.2) 11/06/20 06:45 AST 23 units/L (5-40) 11/06/20 06:45 ALT 20 units/L (7-56) 11/06/20 06:45 Alkaline Phosphatase 117 units/L (35-129) 11/06/20 06:45 Total Creatine Kinase 31 units/L (55-170) L 10/26/20 17:28 Troponin T 0.062 ng/mL (0.00-0.029) H 10/26/20 17:25 Total Protein 5.0 g/dL (6.3-8.2) L 11/06/20 06:45 Albumin 1.4 g/dL (3.9-5) L 11/06/20 06:45 Albumin/Globulin Ratio 0.4 % 11/06/20 06:45 Triglycerides 190 mg/dL (2-149) H 10/26/20 17:25 Cholesterol 92 mg/dL (50-199) 10/26/20 17:25 LDL Cholesterol Direct 33 mg/dL (50-130) L 10/26/20 17:25 HDL Cholesterol 18 mg/dL (40-59) L 10/26/20 17:25 Cholesterol/HDL Ratio 5.11 % 10/26/20 17:25 TSH 1.490 mlU/mL (0.270-4.200) 10/26/20 17:28 Arterial Blood Glucose 165 mg/dL (65-95) H 11/04/20 11:42 Arterial Blood Ionized Calcium 4.0 mg/dL (4.6-5.3) L 11/04/20 11:42 Urine Color Yellow (Yellow) 10/27/20 Unknown Urine Turbidity Turbid (Clear) 10/27/20 Unknown Urine pH 8.0 (5.0-7.0) H 10/27/20 Unknown Ur Specific [place] 1.020 (1.003-1.030) 10/27/20 Unknown Urine Protein >500 mg/dL (Negative) 10/27/20 Unknown Urine Glucose (UA) Neg mg/dL (Negative) 10/27/20 Unknown Urine Ketones Neg mg/dL (Negative) 10/27/20 Unknown Urine Blood Sm (Negative) 10/27/20 Unknown Urine Nitrite Neg (Negative) 10/27/20 Unknown Urine Bilirubin Neg (Negative) 10/27/20 Unknown Urine Urobilinogen < 2.0 mg/dL (<2.0) 10/27/20 Unknown Ur Leukocyte Esterase Mod (Negative) 10/27/20 Unknown Urine WBC (Auto) > 182.0 /HPF (0.0-6.0) H 10/27/20 Unknown Urine RBC (Auto) 35.0 /HPF (0.0-6.0) 10/27/20 Unknown Urine WBC Clumps 3+ /HPF 10/27/20 Unknown Urine Mucus 3+ /HPF 10/27/20 Unknown Urine Yeast (Budding) 3+ /HPF 10/27/20 Unknown Vancomycin Trough 22.0 ug/mL (5.0-20.0) H 10/30/20 Unknown Salicylates < 0.3 mg/dL (2.8-20.0) L 10/26/20 17:28 Acetaminophen 5.0 ug/mL (10.0-30.0) L 10/26/20 17:28 Heparin-induced Plt Ab Negative (Negative) 11/03/20 11:01 UF Heparin High Dose 0 % Release 11/03/20 11:01 MOISES UFH Low Dose 0.1 2 % Release 11/03/20 11:01 MOISES UFH Low Dose 0.5 0 % Release 11/03/20 11:01 Coronavirus (PCR) Negative (Negative) 10/27/20 Unknown Blood Type O POSITIVE 10/30/20 09:30 Antibody Screen Negative 10/30/20 09:30 Crossmatch See Detail 10/30/20 09:30 Rivas/IV: Voiding Method Incontinent Active Medications - Current Medications Current Medications: Generic Name Dose Route Start Last Admin Trade Name Freq PRN Reason Stop Dose Admin Acetaminophen 650 mg 10/26/20 22:22 11/04/20 21:43 Acetaminophen 325 Mg Tab PO 650 mg Q4H PRN Administration Pain MILD(1-3)/Fever >100.5/TIERNEY Amiodarone HCl 200 mg 11/08/20 10:00 11/09/20 09:43 Amiodarone 200 Mg Tab PO 200 mg DAILY MARSHALL Administration Lipase/Protease/Amylase 1 each 10/28/20 13:18 Lipase 10,500/Protease 25,000/Amylase 43,750 (Units) Dr Casper FEEDTUBE PRN PRN For Clogged Feeding Tube Enoxaparin Sodium 40 mg 11/07/20 10:00 11/09/20 09:43 Enoxaparin 40 Mg/0.4 Ml Inj SUB-Q 40 mg QDAY@1000 MARSHALL Administration Famotidine 20 mg 10/28/20 10:00 11/09/20 21:28 Famotidine 20 Mg/2 Ml Inj IV 20 mg BID MRASHALL Administration Ceftriaxone Sodium 2 gm in 100 mls @ 200 mls/hr 10/29/20 13:00 11/09/20 13:03 Rocephin/Ns 2 Gm/100 Ml IV 11/12/20 13:29 200 mls/hr Q24H MARSHALL Administration Protocol Metronidazole 500 mg in 100 mls @ 100 mls/hr 10/29/20 14:00 11/10/20 06:24 Flagyl 500 Mg/100 Ml IV 11/12/20 14:59 100 mls/hr Q8H MARSHALL Administration Protocol Midodrine 10 mg 11/06/20 12:00 11/09/20 15:21 Midodrine 5 Mg Tab PO 10 mg TID@0800,1200,1600 MARSHALL Administration Ondansetron HCl 4 mg 10/26/20 22:22 Ondansetron 4 Mg/2 Ml Inj IV Q8H PRN Nausea And Vomiting Simple Syrup 15 ml 10/28/20 13:18 Simple Syrup 15 Ml FEEDTUBE PRN PRN Hypoglycemia Simple Syrup 30 ml 10/28/20 13:18 Simple Syrup 15 Ml FEEDTUBE PRN PRN Hypoglycemia Sodium Bicarbonate 325 mg 10/28/20 13:18 Sodium Bicarbonate 325 Mg Tab FEEDTUBE PRN PRN For Clogged Feeding Tube Sodium Chloride 10 ml 10/27/20 10:00 11/09/20 21:29 Sodium Chloride 0.9% 10 Ml Flush Syringe IV 10 ml BID MARSHALL Administration Sodium Chloride 10 ml 10/26/20 22:22 Sodium Chloride 0.9% 10 Ml Flush Syringe IV PRN PRN LINE FLUSH Sodium Hypochlorite 1 applic 10/28/20 10:00 11/09/20 22:25 Sodium Hypochlorite, Dakin's 1/2 Strength (0.25%) 473 Ml Topical Soln TP Not Given BID MARSHALL Vancomycin HCl 125 mg 11/05/20 18:00 11/10/20 06:24 Vancomycin 250 Mg/10 Ml Oral Liqd PO 11/15/20 12:01 125 mg Q6HR MARSHALL Administration Protocol Nutrition/Malnutrition Assess - Dietary Evaluation Nutrition/Malnutrition Findings: Nutrition Notes Start: 10/27/20 09:15 Freq: Status: Active Protocol: Document 11/06/20 12:28 CW (Rec: 11/06/20 12:35 CW [id number]) Nutrition Notes Initial or Follow up Brief Note Current Diagnosis Acute Kidney Injury,Decubitus( Pressure Ulcer),Sepsis, Hypertension,Respiratory Failure,Hyperlipidemia Other Pertinent Diagnosis AMS, MRSA, Encephalopathy, Metabiloc Acidosis, pneu ,FTT Current Diet Vital HP at 80 ml/hr Labs/Tests Na 148 BUN 32 BG 143 P 0.9 Pertinent Medications Na3PO4 Height 6 ft 2 in Weight 135 kg [place] Body Weight (kg) 86.36 BMI 38.2 Weight change and time frame Weight stable at this time Weight Status Obese Subjective/Other Information MD verbally requested increase of free water flush d/t hypernatremia. PT remains on mechanical vent. TF still being well tolerated. Percent of energy/protein needs met: 100%/100% Burn Absent Trauma Absent Nutrition Intervention Change Diet Order: Continue TF regime, Increase flush Nutrition Support: Vital HP at 80 ml/hr with a free water flush of 150 ml q4h Kcal 1,920 Protein (gm) 168 Fluid (mL) 1,605 Follow-Up By: 11/11/20 Additional Comments bed continues to rotate patient
--- NOTE | 2020-11-10 09:53 | Progress Note ---
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 Lymphocytes % (Manual) 2.0 L Nucleated RBC % 1.0 H Seg Neutrophils # Seg Neutrophils # Man 16.1 H Lymphocytes # (Manual) 0.3 L Monocytes # (Manual) ABG pH POC ABG pCO2 POC ABG pO2 ABG pO2 ABG HCO3 ABG O2 Saturation ABG Base Excess ABG Hemoglobin ABG Oxyhemoglobin ABG Potassium ABG Chloride ABG Glucose Oxyhemoglobin Carboxyhemoglobin Sodium Potassium 2.4 L* D Chloride 110.2 H Carbon Dioxide BUN 23 H Creatinine 0.4 L Glucose 154 H POC Glucose 131 H Lactic Acid Calcium 6.1 L Phosphorus Magnesium 1.50 L Total Creatine Kinase Troponin T Total Protein Albumin Triglycerides LDL Cholesterol Direct HDL Cholesterol Arterial Blood Glucose Arterial Blood Ionized Calcium Urine pH Urine WBC (Auto) Vancomycin Trough Salicylates Acetaminophen Crossmatch 11/02/20 11/02/20 11/02/20 13:17 17:25 18:05 WBC RBC Hgb Hct MCV MCHC RDW Plt Count Lymph % (Auto) Seg Neutrophils % Seg Neuts % (Manual) Lymphocytes % (Manual) Nucleated RBC % Seg Neutrophils # Seg Neutrophils # Man Lymphocytes # (Manual) Monocytes # (Manual) ABG pH POC ABG pCO2 POC ABG pO2 ABG pO2 ABG HCO3 ABG O2 Saturation ABG Base Excess ABG Hemoglobin ABG Oxyhemoglobin ABG Potassium ABG Chloride ABG Glucose Oxyhemoglobin Carboxyhemoglobin Sodium Potassium 3.1 L D Chloride Carbon Dioxide BUN Creatinine Glucose POC Glucose 134 H 140 H Lactic Acid Calcium Phosphorus Magnesium Total Creatine Kinase Troponin T Total Protein Albumin Triglycerides LDL Cholesterol Direct HDL Cholesterol Arterial Blood Glucose Arterial Blood Ionized Calcium Urine pH Urine WBC (Auto) Vancomycin Trough Salicylates Acetaminophen Crossmatch 11/02/20 11/03/20 11/03/20 23:36 04:15 05:07 WBC RBC Hgb Hct MCV MCHC RDW Plt Count Lymph % (Auto) Seg Neutrophils % Seg Neuts % (Manual) Lymphocytes % (Manual) Nucleated RBC % Seg Neutrophils # Seg Neutrophils # Man Lymphocytes # (Manual) Monocytes # (Manual) ABG pH POC ABG pCO2 POC ABG pO2 ABG pO2 ABG HCO3 ABG O2 Saturation ABG Base Excess ABG Hemoglobin ABG Oxyhemoglobin ABG Potassium ABG Chloride ABG Glucose Oxyhemoglobin Carboxyhemoglobin Sodium Potassium 3.0 L Chloride 111.8 H Carbon Dioxide BUN 24 H Creatinine 0.3 L Glucose 141 H POC Glucose 127 H 156 H Lactic Acid Calcium 5.8 L* Phosphorus Magnesium 1.60 L Total Creatine Kinase Troponin T Total Protein Albumin Triglycerides LDL Cholesterol Direct HDL Cholesterol Arterial Blood Glucose Arterial Blood Ionized Calcium Urine pH Urine WBC (Auto) Vancomycin Trough Salicylates Acetaminophen Crossmatch 11/03/20 11/03/20 11/04/20 11:14 17:31 00:17 WBC RBC Hgb Hct MCV MCHC RDW Plt Count Lymph % (Auto) Seg Neutrophils % Seg Neuts % (Manual) Lymphocytes % (Manual) Nucleated RBC % Seg Neutrophils # Seg Neutrophils # Man Lymphocytes # (Manual) Monocytes # (Manual) ABG pH POC ABG pCO2 POC ABG pO2 ABG pO2 ABG HCO3 ABG O2 Saturation ABG Base Excess ABG Hemoglobin ABG Oxyhemoglobin ABG Potassium ABG Chloride ABG Glucose Oxyhemoglobin Carboxyhemoglobin Sodium Potassium Chloride Carbon Dioxide BUN Creatinine Glucose POC Glucose 137 H 151 H 156 H Lactic Acid Calcium Phosphorus Magnesium Total Creatine Kinase Troponin T Total Protein Albumin Triglycerides LDL Cholesterol Direct HDL Cholesterol Arterial Blood Glucose Arterial Blood Ionized Calcium Urine pH Urine WBC (Auto) Vancomycin Trough Salicylates Acetaminophen Crossmatch 11/04/20 11/04/20 11/04/20 05:34 05:34 11:16 WBC 21.9 H RBC 2.67 L Hgb 8.2 L Hct 24.8 L MCV MCHC RDW 15.6 H Plt Count 48 L Lymph % (Auto) Seg Neutrophils % Seg Neuts % (Manual) Lymphocytes % (Manual) Nucleated RBC % Seg Neutrophils # Seg Neutrophils # Man Lymphocytes # (Manual) Monocytes # (Manual) ABG pH POC ABG pCO2 POC ABG pO2 ABG pO2 ABG HCO3 ABG O2 Saturation ABG Base Excess ABG Hemoglobin ABG Oxyhemoglobin ABG Potassium ABG Chloride ABG Glucose Oxyhemoglobin Carboxyhemoglobin Sodium 146 H Potassium Chloride 114.6 H Carbon Dioxide BUN 29 H Creatinine 0.3 L Glucose 173 H POC Glucose 156 H Lactic Acid Calcium 5.7 L* Phosphorus Magnesium Total Creatine Kinase Troponin T Total Protein Albumin Triglycerides LDL Cholesterol Direct HDL Cholesterol Arterial Blood Glucose Arterial Blood Ionized Calcium Urine pH Urine WBC (Auto) Vancomycin Trough Salicylates Acetaminophen Crossmatch 11/04/20 11/04/20 11/04/20 11:42 17:18 23:12 WBC RBC Hgb Hct MCV MCHC RDW Plt Count Lymph % (Auto) Seg Neutrophils % Seg Neuts % (Manual) Lymphocytes % (Manual) Nucleated RBC % Seg Neutrophils # Seg Neutrophils # Man Lymphocytes # (Manual) Monocytes # (Manual) ABG pH 7.525 H POC ABG pCO2 28.9 L POC ABG pO2 64.3 L ABG pO2 ABG HCO3 ABG O2 Saturation ABG Base Excess ABG Hemoglobin 8.2 L ABG Oxyhemoglobin ABG Potassium 3.3 L ABG Chloride 115.0 H ABG Glucose 165 H Oxyhemoglobin Carboxyhemoglobin Sodium Potassium Chloride Carbon Dioxide BUN Creatinine Glucose POC Glucose 144 H 155 H Lactic Acid Calcium Phosphorus Magnesium Total Creatine Kinase Troponin T Total Protein Albumin Triglycerides LDL Cholesterol Direct HDL Cholesterol Arterial Blood Glucose 165 H Arterial Blood Ionized Calcium 4.0 L Urine pH Urine WBC (Auto) Vancomycin Trough Salicylates Acetaminophen Crossmatch 11/05/20 11/05/20 11/05/20 04:48 04:48 05:57 WBC 17.4 H RBC 2.49 L Hgb 7.8 L Hct 23.5 L MCV MCHC RDW 16.0 H Plt Count 69 L Lymph % (Auto) Seg Neutrophils % Seg Neuts % (Manual) Lymphocytes % (Manual) Nucleated RBC % Seg Neutrophils # Seg Neutrophils # Man Lymphocytes # (Manual) Monocytes # (Manual) ABG pH POC ABG pCO2 POC ABG pO2 ABG pO2 ABG HCO3 ABG O2 Saturation ABG Base Excess ABG Hemoglobin ABG Oxyhemoglobin ABG Potassium ABG Chloride ABG Glucose Oxyhemoglobin Carboxyhemoglobin Sodium 147 H Potassium 3.5 L Chloride 115.4 H Carbon Dioxide BUN 34 H Creatinine 0.3 L Glucose 154 H POC Glucose 146 H Lactic Acid Calcium 6.1 L Phosphorus 2.00 L Magnesium Total Creatine Kinase Troponin T Total Protein Albumin Triglycerides LDL Cholesterol Direct HDL Cholesterol Arterial Blood Glucose Arterial Blood Ionized Calcium Urine pH Urine WBC (Auto) Vancomycin Trough Salicylates Acetaminophen Crossmatch 11/05/20 11/05/20 11/05/20 11:33 17:52 23:37 WBC RBC Hgb Hct MCV MCHC RDW Plt Count Lymph % (Auto) Seg Neutrophils % Seg Neuts % (Manual) Lymphocytes % (Manual) Nucleated RBC % Seg Neutrophils # Seg Neutrophils # Man Lymphocytes # (Manual) Monocytes # (Manual) ABG pH POC ABG pCO2 POC ABG pO2 ABG pO2 ABG HCO3 ABG O2 Saturation ABG Base Excess ABG Hemoglobin ABG Oxyhemoglobin ABG Potassium ABG Chloride ABG Glucose Oxyhemoglobin Carboxyhemoglobin Sodium Potassium Chloride Carbon Dioxide BUN Creatinine Glucose POC Glucose 144 H 136 H 151 H Lactic Acid Calcium Phosphorus Magnesium Total Creatine Kinase Troponin T Total Protein Albumin Triglycerides LDL Cholesterol Direct HDL Cholesterol Arterial Blood Glucose Arterial Blood Ionized Calcium Urine pH Urine WBC (Auto) Vancomycin Trough Salicylates Acetaminophen Crossmatch 11/06/20 11/06/20 11/06/20 05:36 06:45 06:45 WBC 15.0 H RBC 2.33 L Hgb 7.2 L Hct 22.1 L MCV 95 H MCHC RDW 16.2 H Plt Count 103 L Lymph % (Auto) Seg Neutrophils % Seg Neuts % (Manual) Lymphocytes % (Manual) Nucleated RBC % Seg Neutrophils # Seg Neutrophils # Man Lymphocytes # (Manual) Monocytes # (Manual) ABG pH POC ABG pCO2 POC ABG pO2 ABG pO2 ABG HCO3 ABG O2 Saturation ABG Base Excess ABG Hemoglobin ABG Oxyhemoglobin ABG Potassium ABG Chloride ABG Glucose Oxyhemoglobin Carboxyhemoglobin Sodium 148 H Potassium Chloride 118.2 H Carbon Dioxide BUN 32 H Creatinine 0.4 L Glucose 153 H POC Glucose 140 H Lactic Acid Calcium 6.4 L Phosphorus 0.90 L* D Magnesium Total Creatine Kinase Troponin T Total Protein 5.0 L Albumin 1.4 L Triglycerides LDL Cholesterol Direct HDL Cholesterol Arterial Blood Glucose Arterial Blood Ionized Calcium Urine pH Urine WBC (Auto) Vancomycin Trough Salicylates Acetaminophen Crossmatch 11/06/20 11/06/20 11/06/20 11:32 17:37 23:19 WBC RBC Hgb Hct MCV MCHC RDW Plt Count Lymph % (Auto) Seg Neutrophils % Seg Neuts % (Manual) Lymphocytes % (Manual) Nucleated RBC % Seg Neutrophils # Seg Neutrophils # Man Lymphocytes # (Manual) Monocytes # (Manual) ABG pH POC ABG pCO2 POC ABG pO2 ABG pO2 ABG HCO3 ABG O2 Saturation ABG Base Excess ABG Hemoglobin ABG Oxyhemoglobin ABG Potassium ABG Chloride ABG Glucose Oxyhemoglobin Carboxyhemoglobin Sodium Potassium Chloride Carbon Dioxide BUN Creatinine Glucose POC Glucose 132 H 133 H 145 H Lactic Acid Calcium Phosphorus Magnesium Total Creatine Kinase Troponin T Total Protein Albumin Triglycerides LDL Cholesterol Direct HDL Cholesterol Arterial Blood Glucose Arterial Blood Ionized Calcium Urine pH Urine WBC (Auto) Vancomycin Trough Salicylates Acetaminophen Crossmatch 11/07/20 11/07/20 11/07/20 12:55 16:45 16:45 WBC 12.0 H RBC 3.63 L Hgb 11.4 L D Hct MCV 104 H MCHC 30 L RDW 18.0 H Plt Count 133 L Lymph % (Auto) Seg Neutrophils % Seg Neuts % (Manual) Lymphocytes % (Manual) Nucleated RBC % Seg Neutrophils # Seg Neutrophils # Man Lymphocytes # (Manual) Monocytes # (Manual) ABG pH POC ABG pCO2 POC ABG pO2 ABG pO2 ABG HCO3 ABG O2 Saturation ABG Base Excess ABG Hemoglobin 7.7 L ABG Oxyhemoglobin ABG Potassium ABG Chloride ABG Glucose Oxyhemoglobin 94.9 L Carboxyhemoglobin Sodium 149 H Potassium Chloride 119.8 H Carbon Dioxide BUN 31 H Creatinine 0.4 L Glucose 130 H POC Glucose Lactic Acid Calcium 6.5 L Phosphorus Magnesium Total Creatine Kinase Troponin T Total Protein Albumin Triglycerides LDL Cholesterol Direct HDL Cholesterol Arterial Blood Glucose Arterial Blood Ionized Calcium Urine pH Urine WBC (Auto) Vancomycin Trough Salicylates Acetaminophen Crossmatch 11/07/20 11/08/20 11/08/20 17:23 00:12 06:11 WBC RBC Hgb Hct MCV MCHC RDW Plt Count Lymph % (Auto) Seg Neutrophils % Seg Neuts % (Manual) Lymphocytes % (Manual) Nucleated RBC % Seg Neutrophils # Seg Neutrophils # Man Lymphocytes # (Manual) Monocytes # (Manual) ABG pH POC ABG pCO2 POC ABG pO2 ABG pO2 ABG HCO3 ABG O2 Saturation ABG Base Excess ABG Hemoglobin ABG Oxyhemoglobin ABG Potassium ABG Chloride ABG Glucose Oxyhemoglobin Carboxyhemoglobin Sodium Potassium Chloride Carbon Dioxide BUN Creatinine Glucose POC Glucose 115 H 129 H 109 H Lactic Acid Calcium Phosphorus Magnesium Total Creatine Kinase Troponin T Total Protein Albumin Triglycerides LDL Cholesterol Direct HDL Cholesterol Arterial Blood Glucose Arterial Blood Ionized Calcium Urine pH Urine WBC (Auto) Vancomycin Trough Salicylates Acetaminophen Crossmatch 11/08/20 11/08/20 11/08/20 17:36 23:49 23:58 WBC RBC Hgb Hct MCV MCHC RDW Plt Count Lymph % (Auto) Seg Neutrophils % Seg Neuts % (Manual) Lymphocytes % (Manual) Nucleated RBC % Seg Neutrophils # Seg Neutrophils # Man Lymphocytes # (Manual) Monocytes # (Manual) ABG pH POC ABG pCO2 POC ABG pO2 ABG pO2 ABG HCO3 ABG O2 Saturation ABG Base Excess ABG Hemoglobin ABG Oxyhemoglobin ABG Potassium ABG Chloride ABG Glucose Oxyhemoglobin Carboxyhemoglobin Sodium Potassium Chloride Carbon Dioxide BUN Creatinine Glucose 138 H POC Glucose 38 L 36 L Lactic Acid Calcium Phosphorus Magnesium Total Creatine Kinase Troponin T Total Protein Albumin Triglycerides LDL Cholesterol Direct HDL Cholesterol Arterial Blood Glucose Arterial Blood Ionized Calcium Urine pH Urine WBC (Auto) Vancomycin Trough Salicylates Acetaminophen Crossmatch 11/09/20 11/09/20 11/09/20 05:33 06:00 06:00 WBC 13.1 H RBC 2.35 L Hgb 7.6 L D Hct 22.9 L D MCV 97 H MCHC RDW 16.8 H Plt Count Lymph % (Auto) 9.1 L Seg Neutrophils % 84.8 H Seg Neuts % (Manual) Lymphocytes % (Manual) Nucleated RBC % Seg Neutrophils # 11.1 H Seg Neutrophils # Man Lymphocytes # (Manual) Monocytes # (Manual) ABG pH POC ABG pCO2 POC ABG pO2 ABG pO2 ABG HCO3 ABG O2 Saturation ABG Base Excess ABG Hemoglobin ABG Oxyhemoglobin ABG Potassium ABG Chloride ABG Glucose Oxyhemoglobin Carboxyhemoglobin Sodium 150 H Potassium 3.4 L D Chloride 119.2 H Carbon Dioxide BUN 30 H Creatinine 0.4 L Glucose 137 H POC Glucose 58 L Lactic Acid Calcium 7.2 L Phosphorus Magnesium Total Creatine Kinase Troponin T Total Protein Albumin Triglycerides LDL Cholesterol Direct HDL Cholesterol Arterial Blood Glucose Arterial Blood Ionized Calcium Urine pH Urine WBC (Auto) Vancomycin Trough Salicylates Acetaminophen Crossmatch 11/09/20 11/09/20 06:08 22:16 WBC RBC Hgb Hct MCV MCHC RDW Plt Count Lymph % (Auto) Seg Neutrophils % Seg Neuts % (Manual) Lymphocytes % (Manual) Nucleated RBC % Seg Neutrophils # Seg Neutrophils # Man Lymphocytes # (Manual) Monocytes # (Manual) ABG pH POC ABG pCO2 POC ABG pO2 ABG pO2 ABG HCO3 ABG O2 Saturation ABG Base Excess ABG Hemoglobin ABG Oxyhemoglobin ABG Potassium ABG Chloride ABG Glucose Oxyhemoglobin Carboxyhemoglobin Sodium Potassium Chloride Carbon Dioxide BUN Creatinine Glucose POC Glucose 122 H 120 H Lactic Acid Calcium Phosphorus Magnesium Total Creatine Kinase Troponin T Total Protein Albumin Triglycerides LDL Cholesterol Direct HDL Cholesterol Arterial Blood Glucose Arterial Blood Ionized Calcium Urine pH Urine WBC (Auto) Vancomycin Trough Salicylates Acetaminophen Crossmatch Allied health notes reviewed: nursing
[2020-11-10] MEDS: AMIODARONE 200 MG TAB PO SCH (10:19)
[2020-11-10] MEDS: MIDODRINE 5 MG TAB PO SCH ×3 (10:19→15:05)
[2020-11-10] MEDS: ENOXAPARIN 40 MG/0.4 ML INJ SUB-Q SCH (10:20)
[2020-11-10] MEDS: FAMOTIDINE 20 MG/2 ML INJ IV SCH ×2 (10:21→21:54)
--- NOTE | 2020-11-10 11:13 | XRay Report ---
CHEST 1 VIEW 11/10/2020 10:46 AM INDICATION / CLINICAL INFORMATION: Hypoxemia.. COMPARISON: 11/02/2020 FINDINGS: SUPPORT DEVICES: NG tube again seen extending below the diaphragm. HEART / MEDIASTINUM: Stable. LUNGS / PLEURA: Interval development of opacification right hemithorax, probably a large pleural effu sirisha. No pneumothorax. ADDITIONAL FINDINGS: No significant additional findings. IMPRESSION: 1. Interval reaccumulation of large right pleural effusion. Signer Name: Bayron Ruvalcaba MD Signed: 11/10/2020 11:09 AM Workstation Name: [id number]
[2020-11-10 14:27] LABS: Hematocrit 25.2 % (35.5-45.6); Hemoglobin 8.1 gm/dl (11.8-15.2); Mean Corpuscular HGB Conc 32 % (32-34); Mean Corpuscular Volume 100 fl (84-94); Platelet Count 247 K/mm3 (140-440); Red Blood Count 2.52 M/mm3 (3.65-5.03); Red Cell Distribution Width 18.2 % (13.2-15.2)
[2020-11-10] MEDS: ACETAMINOPHEN 325 MG TAB PO PRN (14:29)
[2020-11-10 14:37] LABS: Blood Urea Nitrogen 27 mg/dL (9-20); Calcium 6.8 mg/dL (8.4-10.2); Hemolysis Index 91
[2020-11-10 14:38] LABS: BUN/Creatinine Ratio 90
[2020-11-10] MEDS: cefTRIAXone/NS 2 GM/100 ML 2 GM/100 ML BAG IV SCH (14:55)
--- NOTE | 2020-11-10 15:23 | Progress Note ---
Assessment and Plan The pt is a 75-year-old male skilled nursing resident with a past medical history of seizure disorder, hypertension, depression, hyperlipidemia, chronic encephalopathy. He is intubated and sedated on evaluation and thus HPI is obtained per the chart. Pt was sent to the hospital for evaluation of AMS. Following arrival, pt diagnosed with necrotic sacral ulcer, sepsis with septic shock requiring vasopressor support, UTI, bilateral PNA with acute respiratory failure requiring intubation, COVID-19 testing negative, anemia, FAZAL. Pt was reported to have SVT prehospital for which he received IV adenosine and cardiology was consulted. tte reviewed - EF 55-60%, no significant abnormalities. Pt remains on Amiodarone Drip for arrhythmia suppression. Pt is currently on nonrebreather, lethargic. HE is being transferred to [facility] for closer observation. Tele reviewed: SR 84 No systemic AC at this time in regards to Paroxismal AFib in setting of anemia requiring PRBC tx, thrombocytopenia and sacral ulcer (pt is s/p debulking debridement but not a candidate at this time for more aggressive debridement given clinical instability and malnutrition per general surgery). Cont supportive management. The patient has been seen in conjunction with Dr. Landa who agrees with the assessment and plan of care. - Patient Problems (1) AMS (altered mental status) Current Visit: Yes Status: Acute (2) Atrial fibrillation with RVR Current Visit: Yes Status: Acute Currently in SR with PJCs. No AC in setting of anemia. (3) Acute respiratory failure Current Visit: Yes Status: Acute (4) Bilateral pneumonia Current Visit: Yes Status: Acute (5) Sepsis Current Visit: Yes Status: Acute (6) Sepsis associated hypotension Current Visit: Yes Status: Acute Pt is requiring Levophed titration to maintain pressure (7) Sacral decubitus ulcer, stage IV Current Visit: Yes Status: Acute (8) UTI (urinary tract infection) Current Visit: Yes Status: Acute (9) FAZAL (acute kidney injury) Current Visit: Yes Status: Acute (10) Hypomagnesemia Current Visit: Yes Status: Acute (11) Anemia Current Visit: Yes Status: Acute (12) Thrombocytopenia Current Visit: Yes Status: Acute Subjective Date of service: 11/10/20 Principal diagnosis: Acute Resp Fail, Septic Shock, Sacral Ulcer, AF with RVR Interval history: Pt is on nonrebreather, lethargic not following commands appropriately. Pt is not on telemetry. Tele order placed. Objective Last Vital Signs Temp 99.3 F 11/10/20 08:33 Pulse 77 11/10/20 13:00 Resp 24 11/10/20 13:00 BP 123/61 11/10/20 13:00 Pulse Ox 99 11/10/20 14:15 - Physical Examination General: Other (intubated) HEENT: Positive: Normocephaly Neck: Positive: neck supple, trachea midline Cardiac: Positive: Reg Rate and Rhythm, S1/S2 Lungs: Positive: Decreased Breath Sounds Neuro: Positive: Grossly Intact, Other (intubated) Abdomen: Positive: Soft Skin: Positive: Wound. Negative: Rash Musculoskeletal: No Pain Extremities: Present: upper extr. pulses, lower extr. pulses, edema, Other (chronic skin changes noted) - Labs and Meds CBC 11/10/20 Range/Units 13:46 WBC 16.1 H (4.5-11.0) K/mm3 RBC 2.52 L (3.65-5.03) M/mm3 Hgb 8.1 L (11.8-15.2) gm/dl Hct 25.2 L (35.5-45.6) % Plt Count 247 (140-440) K/mm3 Comprehensive Metabolic Panel 11/10/20 Range/Units 13:46 Sodium 153 H (137-145) mmol/L Potassium 3.9 (3.6-5.0) mmol/L Chloride 120.6 H (98-107) mmol/L Carbon Dioxide 23 (22-30) mmol/L BUN 27 H (9-20) mg/dL Creatinine 0.3 L (0.8-1.3) mg/dL Glucose 112 H (75-100) mg/dL Calcium 6.8 L (8.4-10.2) mg/dL - Imaging and Cardiology EKG: report reviewed, image reviewed Echo: report reviewed (10/28/2020- EF 55-60%, no significant valvular a bnormalities) - Telemetry EKG Rhythm: Sinus Rhythm - Allied health notes Allied health notes reviewed: nursing
[2020-11-10 17:01] LABS: Total Cells Counted 100
[2020-11-10 17:02] LABS: Dimorphic RBC Yes; Macrocytosis Rare
--- NOTE | 2020-11-10 17:22 | Progress Note ---
Assessment and Plan Cultures: 10/26/2020 tracheal aspirate culture: MRSA 10/26/2020 blood culture: Proteus 10/27/2020 urine culture: Mixed hien A/P: 75-year-old male, [facility] resident with seizure disorder, hypertension, depression, hyperlipidemia, chronic encephalopathy was sent to the hospital with worsening mental status: #Septic shock, Proteus bacteremia: Off pressors, leukocytosis better. multifactorial from infected sacral decubitus ulcer, bilateral pneumonia, UTI. Worsening leukocytosis with acute diarrhea 1L loose stool overnight ? C. difficile, leukocytosis improving today #Acute diarrhea: ? C. difficile, improved on vancomycin p.o. Diarrhea improved, Cdiff test was not able to be done. #Necrotic, infected sacral decubitus ulcer: underwent debridement 10/29/2020, als o noted to have brittle coccyx consistent with osteomyelitis. #UTI: UA with significant pyuria. #Bilateral pneumonia: Noted on CT. Possibly some aspiration. Sputum culture positive for MRSA. Received vancomycin IV for 7 days. #FAZAL: Renally dose antibiotics. #Acute respiratory failure: on the vent. Extubated #PVD: SFA occlusion. Not a candidate for revascularization per vascular Recs: -Monitor leukocytosis which is improving -Continue empiric vancomycin 125 mg p.o. 4 times daily D6 of 10 -continue Ceftriaxone + Flagyl x 14 days from debridement D12 of 14 (prolonged abx not of much benefit even though there is osteomyelitis, main stay will be offloading and wound care Eliezer Jack MD [facility] O: [phone] F: [phone] Subjective Date of service: 11/10/20 Principal diagnosis: Acute Resp Fail, Septic Shock, Sacral Ulcer, AF with RVR Interval history: Afebrile, white count 16.1. Objective - Exam Narrative Exam: General appearance: alert in NAD Eyes: anicteric sclerae, moist conjunctivae; no lid-lag; PERRLA HENT: Normocephalic, Atraumatic; normal external ears, nares open, oropharynx limited Neck: supple, tracheal midline, no JVD Lungs: Diminished breath sound bilaterally CV: RRR Abdomen: Soft, nontender Extremities: Bilateral upper extremity and lower extremity edema Skin: No rash. Extensive scrotal edema Psych: No agitated Neuro: Alert, open eyes, follows commands - Constitutional Vitals: Vital Signs Temp Pulse Resp BP Pulse Ox 99.3 F 85 27 H 117/66 97 11/10/20 08:33 11/10/20 16:16 11/10/20 16:16 11/10/20 16:46 11/10/20 16:46 Temperature -Last 24 Hours Temperature 99.3 F Temperature 97.6 F Temperature 98.5 F - Labs CBC & Chem 7: 11/10/20 13:46 11/10/20 13:46 Labs: Abnormal lab results 11/09/20 11/10/20 11/10/20 Range/Units 22:16 13:46 13:46 WBC 16.1 H (4.5-11.0) K/mm3 RBC 2.52 L (3.65-5.03) M/mm3 Hgb 8.1 L (11.8-15.2) gm/dl Hct 25.2 L (35.5-45.6) % MCV 100 H (84-94) fl RDW 18.2 H (13.2-15.2) % Seg Neuts % (Manual) 90.0 H (40.0-70.0) % Lymphocytes % (Manual) 3.0 L (13.4-35.0) % Seg Neutrophils # Man 14.5 H (1.8-7.7) K/mm3 Lymphocytes # (Manual) 0.5 L (1.2-5.4) K/mm3 Monocytes # (Manual) 1.1 H (0.0-0.8) K/mm3 Sodium 153 H (137-145) mmol/L Chloride 120.6 H (98-107) mmol/L BUN 27 H (9-20) mg/dL Creatinine 0.3 L (0.8-1.3) mg/dL Glucose 112 H (75-100) mg/dL POC Glucose 120 H (70-105) mg/dL Calcium 6.8 L (8.4-10.2) mg/dL
[2020-11-10] MEDS: SODIUM HYPOCHLORITE, DAKIN'S 1/2 STRENGTH (0.25%) 473 ML TOPICAL SOLN TP SCH (21:56)
[2020-11-11] MEDS: ACETAMINOPHEN 325 MG TAB PO PRN (03:44)
[2020-11-11] MEDS: metroNIDAZOLE/NS 500 MG/100 ML 500 MG/100 ML BAG IV SCH ×3 (05:05→21:02)
[2020-11-11] MEDS: VANCOMYCIN 250 MG/10 ML ORAL LIQD PO SCH ×3 (05:06→18:00)
--- NOTE | 2020-11-11 07:45 | Progress Note ---
Assessment and Plan Assessment and plan: This is a 75-year-old male who is a group home resident with seizure disorder, hypertension, depression, hyperlipidemia, hypoglycemia, dysphagia, and encephalopathy who presents to the emergency department on 10/26 via EMS for tachypnea, dry mucous membranes and hypoxia. Patient was hypotensive, febrile to 103 degrees and hypoxic in the emergency department therefore he was intubated and central IV access was obtained. Patient received 3.5 L of IV fluid in the emergency department. Patient was admitted to the hospital service with consults to CCM, surgery, WOCN and ID for Sepsis, acute kidney injury, urinary tract infection, acute respiratory failure, electrolyte imbalances, infected sacral wound and bilateral pneumonia. Sepsis Acute respiratory failure Infected sacral wound s/p debridement with surgery Generalized anasarca possible acute diastolic congestive heart failure Anemia s/p 2 units prbc Proteus bacteremia MRSA pneumonia Urine tract infection Acute kidney injury with vasomotor Nephropathy Acute Diarrhea ?C.diff- Test was not peformed Leukocytosis SFA occlusion - Not a candidate for surgery per Vascular SVT- Resolved Hyponatremia Hyperchloremia Hypocalcemia Hypomagnesemia Hypophosphatemia Lactic acidosis 10/27: Patient received additional 4 L LR for fluid resuscitation and CV monitoring was initiated. Patient is on Levophed. ID added Flagyl to vancomycin and cefepime. His trach aspirate grew staph coccus aureus. At the time my examination patient the fentanyl drip was held by RN and he was on 14 MCG of Levophed. This morning he was on assist control 450/20/6/.100. We will give additional bolus of fluids with goal CVP 10-12 and repeat labs in AM. Surgery was consulted to possible debridement. 10/28: Overnight it was noted that patient went into SVT and he was given adenosine 6 mg/12 mg / 12 mg once and was started on a Cardizem drip after no response to amnio bolus and cardiology was consulted. Currently patient remains on Levophed drip and is hypotensive and received additional 2 L of bolus for goal CVP of 10-12. Infectious disease changed cefepime/Flagyl to meropenem for GNR in his blood cultures 09/04 and will continue vancomycin. Patient currently was not well controlled on max Cardizem and cardiology initiated amiodarone. Patient still is very tachycardic. Patient is hypomagnesemic and we will replete his Mg and recheck level. We will give the patient additional to complete resolve LR this afternoon. Patient has a standing order per [facility] to bolus the patient with LR for CVP goal of 10-12. This morning he is hyperchlormeic, metabolic acidotic (bicarb drip initiated) and his BUN/creatinine slightly elevated. Patient still remains lactic acidotic. 10/29: Patient's blood culture speciated to Proteus and his tracheal aspirate is MRSA. He is currently on ceftriaxone, Flagyl and vancomycin. Patient heart rate consistently is 110-150s and cardiology has given him an amiodarone bolus today and he remains on amiodarone drip. He looks much started on IV digoxin. This morning 4 L LR bolus was ordered and we will bolus an additional 4 L of LR this afternoon. Patient still has lactic acidosis, metabolic acidosis, leukocytosis and hyperchloremia. On examination this morning patient is more edematous and he remains on Levophed and amnio drip. 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 Remains on amio, levo and sedated with fentanyl. He is hypokalemic today which was repleted, h/h 02/18 and he is being type and crossed today with 2 units PRBC ordered to be transfused. Plt drop noted, heparin discontinued and HIT ordered. Bicarb gtt discontinued. No acute events overnight. 10/31: Patient hypomagnesemia today which was repleted and cardiology has changed his IV amiodarone to p.o. Patient will get albumin per [facility]. At the time my examination patient is on assist control 450/20/6/0.40. 11/03: At the time my examination patient is on assist control 450/20/6/0.25 and sedated with fentanyl and on Levophed at 4.Patient's leukocytosis is improving he received Albumin this weekend. Patient is hypokalemic, hypomagnesemic, hypocalcemic today. We will repeat his electrolytes and recheck a BMP in the a.m. Patient received 2 units PRBC on 10/30 and his hemoglobin has been trending down. We will recheck in the a.m. 11/04: At the time of my examination patient was on Levophed 3 mcg and on VZV/CPAP 450/20/6/0.35. Patient still has leukocytosis, respiratory alkalosis, hyponatremia, hypochloremia, hypocalcemia. Today his magnesium and potassium repleted with bolus of potassium 4/magnesium 2. He received 60 mcg KCl p.o., 40 mEq of KCl IV and 2 g of magnesium sulfate. We will recheck BMP and mag and a.m. Surgery has deemed the patient to unstable for further debulking. We also consulted vascular surgery for PVD as patient has discoloration to BLE /feet. 11/05: Vascular surgery will obtain bilateral lower extremity arterial duplex to evaluate arterial flow and recommends adding as FWF to tube feedings in assisting to wean off of vasopressors. Patient has hypokalemia, hypophosphatemia and normal to low magnesium. Magnesium, potassium and phosphate have been repleted. Patient still remains on ventilator support but on CPAP trial this morning. Patient HIT is still pending. This morning at the time of my examination patient was on assist-control 450/20/6/0.35 and he tolerated CPAP trial for 4 hours yesterday. He was on Levophed 0.5 and his rectal tube output was noted at 1000 mL. 11/06: This morning patient was on a CPAP trial and became hypoxic with SPO2 into the 80s and was switched back to assist control. Patient's vent settings are assist control tidal and 450, rate 20, PEEP 6, FiO2 0.25. Today patient has leukocytosis, hypernatremia, hyperchloremia, hypocalcemia and hypophosphatemia. We will repeat a phosphate. His free water flushes have been increased and his magnesium has been repleted again. Patient has been started on Lovenox given improvement in his platelet count and on midodrine to help keep Levophed off. Infectious disease will continue p.o. vancomycin for total of 10 days. 11/07: Patient failed his CPAP trial yesterday and has been placed on CPAP 05/06 again this morning by RT. Overnight patient was rested on assist control tolerance by 50, rate of 20, pressure support 6 and FiO2 30%. His lab work is still pending for this morning. On repeat his phosphorus was 4.50 yesterday and repletion was discontinued. 11/08/2020; patient is off pressors currently on midodrine. Patient is on ceftriaxone and vancomycin. Patient is on assist control. Patient was evaluated by vascular surgery for peripheral vascular disease with SFA occlusion and recommend no intervention at this time. Prognosis is guarded. Patient is on 2 L of intranasal oxygen. We will put speech therapy evaluation. 11/09/2020; patient is currently off pressors and on midodrine. Continue with ceftriaxone, Flagyl and vancomycin per ID recommendation. Patient's blood culture grew Proteus mirabilis and tracheal aspirate grew MRSA. Patient was evaluated by vascular surgery for PVD with SFA occlusion and recommend no intervention at this time. Patient is on 2 L of intranasal oxygen. Currently patient is on tube feeding and follow speech therapy evaluation. 11/10: Overnight noted to have increased RR, ? Awaiting speech eval considering patient still on Tube feeds. Continue to monitor Hypernatremia. Antibiotics today will be D12/14. Will continue discharge planning on discussion with CM. Patient nonrebreather. Possibly back on congestive heart failure will need appropriate diuresis. Transferred back to [facility]. Discussed with organ grinder and also with cardiology. 11/11: Remains lethargic remains in respiratory distress chest x-ray shows right lung collapse likely secondary to mucous plug. Discussed with organ grinder will likely undergo a bronchoscopy today. We will also continue to monitor as we did suggest possible pleural effusion which we think may be less likely but if that seems to be the case we will send patient for thoracentesis following the bronchoscopy. Continue to monitor hemoglobin continue to monitor diarrhea antibiotics management per infectious disease. I did speak and update patient's cousin yesterday. Patient still with edema will await cardiology reevaluation for possible further diuresis. The high probability of a clinically significant, sudden or life threatening deterioration of the [pulmonary, cardiac] system(s) required my full and direct attention, intervention and personal management. The aggregate critical care time was [35] minutes. This time is in addition to time spent performing reported procedures but includes the following: [X] Data Review and interpretation [X] Patient assessment and monitoring of vital signs [X] Documentation [X] Medication orders and management History Interval history: Patient seen and examined remains on high flow remains congested. Still with hypoxia. Discussed with nursing staff at bedside this morning diarrhea still persistent Hospitalist Physical - Physical exam Narrative exam: VITAL SIGNS: Reviewed. GENERAL: The patient appears normally developed, on high flow in moderate distress vital signs as documented. HEAD: No signs of head trauma. EYES: Pupils are equal. Extraocular motions intact. EARS: Hearing grossly intact. MOUTH: Oropharynx is normal. NECK: No adenopathy, no JVD. CHEST: Chest with crackles breath sounds bilaterally. No wheezes CARDIAC: Regular rate and rhythm. S1 and S2, without murmurs, gallops, or rubs. VASCULAR: +2 bilateral pitting edema. Peripheral pulses normal and equal in all extremities. ABDOMEN: Soft, non tender and non distended. No rebound or guarding, and no masses palpated. Bowel Sounds normal. MUSCULOSKELETAL: Good range of motion of all major joints. Extremities without clubbing, cyanosis. +2 bilateral pitting edema. NEUROLOGIC EXAM: Awake but lethargic and oriented x 3 No focal sensory or strength deficits. Speech garbled speech but improved compared to yesterday. Follows commands. PSYCHIATRIC: Mood normal. SKIN: detail exam as documented in skin assessment - Constitutional Vitals: Temp Pulse Resp BP Pulse Ox 97.7 F 84 11 L 136/59 93 11/11/20 03:41 11/11/20 04:00 11/11/20 04:00 11/10/20 17:20 11/11/20 04:00 General appearance: Present: no acute distress, other (Intubated, resting comfortably) HEART Score - HEART Score EKG: Non-specific Age: > 65 Risk factors: > 3 risk factors or hx of atherosclerotic disease Troponin: Troponin T 0.062 ng/mL (0.00-0.029) H 10/26/20 17:25 Troponin: < normal limit - Critical Actions Critical Actions: 4-6 pts:12-16.6% risk of adverse cardiac event. Should be admitted Results - Labs CBC & Chem 7: 11/10/20 13:46 11/10/20 13:46 Labs: Laboratory Last Values WBC 16.1 K/mm3 (4.5-11.0) H 11/10/20 13:46 RBC 2.52 M/mm3 (3.65-5.03) L 11/10/20 13:46 Hgb 8.1 gm/dl (11.8-15.2) L 11/10/20 13:46 Hct 25.2 % (35.5-45.6) L 11/10/20 13:46 MCV 100 fl (84-94) H 11/10/20 13:46 MCH 32 pg (28-32) 11/10/20 13:46 MCHC 32 % (32-34) 11/10/20 13:46 RDW 18.2 % (13.2-15.2) H 11/10/20 13:46 Plt Count 247 K/mm3 (140-440) 11/10/20 13:46 Lymph % (Auto) 9.1 % (13.4-35.0) L 11/09/20 06:00 [place] % (Auto) 5.4 % (0.0-7.3) 11/09/20 06:00 Eos % (Auto) 0.3 % (0.0-4.3) 11/09/20 06:00 Baso % (Auto) 0.4 % (0.0-1.8) 11/09/20 06:00 Lymph # (Auto) 1.2 K/mm3 (1.2-5.4) 11/09/20 06:00 [place] # (Auto) 0.7 K/mm3 (0.0-0.8) 11/09/20 06:00 Eos # (Auto) 0.0 K/mm3 (0.0-0.4) 11/09/20 06:00 Baso # (Auto) 0.0 K/mm3 (0.0-0.1) 11/09/20 06:00 Add Manual Diff Complete 11/10/20 13:46 Total Counted 100 11/10/20 13:46 Seg Neutrophils % 84.8 % (40.0-70.0) H 11/09/20 06:00 Seg Neuts % (Manual) 90.0 % (40.0-70.0) H 11/10/20 13:46 Band Neutrophils % 17.0 % 10/27/20 03:30 Lymphocytes % (Manual) 3.0 % (13.4-35.0) L 11/10/20 13:46 Monocytes % (Manual) 7.0 % (0.0-7.3) 11/10/20 13:46 Eosinophils % (Manual) 2.0 % (0.0-4.3) 10/27/20 03:30 Metamyelocytes % 4.0 % 10/27/20 03:30 Nucleated RBC % Not Reportable 11/10/20 13:46 Seg Neutrophils # 11.1 K/mm3 (1.8-7.7) H 11/09/20 06:00 Seg Neutrophils # Man 14.5 K/mm3 (1.8-7.7) H 11/10/20 13:46 Band Neutrophils # 0.0 K/mm3 11/10/20 13:46 Lymphocytes # (Manual) 0.5 K/mm3 (1.2-5.4) L 11/10/20 13:46 Abs React Lymphs (Man) 0.0 K/mm3 11/10/20 13:46 Monocytes # (Manual) 1.1 K/mm3 (0.0-0.8) H 11/10/20 13:46 Eosinophils # (Manual) 0.0 K/mm3 (0.0-0.4) 11/10/20 13:46 Basophils # (Manual) 0.0 K/mm3 (0.0-0.1) 11/10/20 13:46 Metamyelocytes # 0.0 K/mm3 11/10/20 13:46 Myelocytes # 0.0 K/mm3 11/10/20 13:46 Promyelocytes # 0.0 K/mm3 11/10/20 13:46 Blast Cells # 0.0 K/mm3 11/10/20 13:46 WBC Morphology Not Reportable 11/10/20 13:46 Hypersegmented Neuts Not Reportable 11/10/20 13:46 Hyposegmented Neuts Not Reportable 11/10/20 13:46 Hypogranular Neuts Not Reportable 11/10/20 13:46 Smudge Cells Not Reportable 11/10/20 13:46 Toxic Granulation Not Reportable 11/10/20 13:46 Toxic Vacuolation Not Reportable 11/10/20 13:46 Dohle Bodies Not Reportable 11/10/20 13:46 Pelger-Huet Anomaly Not Reportable 11/10/20 13:46 Kassi Rods Not Reportable 11/10/20 13:46 Platelet Estimate Not Reportable 11/10/20 13:46 Clumped Platelets Not Reportable 11/10/20 13:46 Plt Clumps, EDTA Not Reportable 11/10/20 13:46 Large Platelets Not Reportable 11/10/20 13:46 Giant Platelets Not Reportable 11/10/20 13:46 Platelet Satelliting Not Reportable 11/10/20 13:46 Plt Morphology Comment Not Reportable 11/10/20 13:46 RBC Morphology Not Reportable 11/10/20 13:46 Dimorphic RBCs Yes 11/10/20 13:46 Polychromasia Not Reportable 11/10/20 13:46 Hypochromasia Not Reportable 11/10/20 13:46 Poikilocytosis Not Reportable 11/10/20 13:46 Anisocytosis Not Reportable 11/10/20 13:46 Microcytosis Rare 11/10/20 13:46 Macrocytosis Rare 11/10/20 13:46 Spherocytes Not Reportable 11/10/20 13:46 Pappenheimer Bodies Not Reportable 11/10/20 13:46 Sickle Cells Not Reportable 11/10/20 13:46 Target Cells Not Reportable 11/10/20 13:46 Tear Drop Cells Not Reportable 11/10/20 13:46 Ovalocytes Not Reportable 11/10/20 13:46 Helmet Cells Not Reportable 11/10/20 13:46 [place] Bodies Not Reportable 11/10/20 13:46 [place] Rings Not Reportable 11/10/20 13:46 Rhea Cells Not Reportable 11/10/20 13:46 Bite Cells Not Reportable 11/10/20 13:46 Crenated Cell Not Reportable 11/10/20 13:46 Elliptocytes Not Reportable 11/10/20 13:46 Acanthocytes (Spur) Not Reportable 11/10/20 13:46 Rouleaux Not Reportable 11/10/20 13:46 Hemoglobin C Crystals Not Reportable 11/10/20 13:46 Schistocytes Not Reportable 11/10/20 13:46 Malaria parasites Not Reportable 11/10/20 13:46 Richard Bodies Not Reportable 11/10/20 13:46 Hem Pathologist Commnt No 11/10/20 13:46 APTT 27.9 Sec. (24.2-36.6) 10/26/20 17:25 Heparin Anti-Xa, Unfract Negative (Negative) 11/03/20 11:01 ABG pH 7.440 pH Units (7.350-7.450) 11/07/20 12:55 POC ABG pCO2 28.9 mmHg (32.0-48.0) L 11/04/20 11:42 ABG pCO2 35.4 mm Hg 11/07/20 12:55 POC ABG pO2 64.3 mmHg (83-108) L 11/04/20 11:42 ABG pO2 82.0 mm Hg (80.0-90.0) 11/07/20 12:55 POC ABG HCO3 23.3 11/04/20 11:42 ABG HCO3 23.4 mmol/L (20.0-26.0) 11/07/20 12:55 ABG O2 Saturation 96.9 % (95.0-99.0) 11/07/20 12:55 ABG O2 Content 10.5 (0.0-44) 11/07/20 12:55 POC ABG Base Excess 0.9 11/04/20 11:42 ABG Base Excess -0.5 mmol/L (-2.0-3.0) 11/07/20 12:55 ABG Hemoglobin 7.7 gm/dl (14.0-18.0) L 11/07/20 12:55 ABG Oxyhemoglobin 94 (94-98) 11/04/20 11:42 ABG Carboxyhemoglobin 1.4 % (0.0-5.0) 11/07/20 12:55 ABG Methemoglobin 0.6 % (0.0-1.5) 11/07/20 12:55 ABG Sodium 142.4 mmol/L (136.0-145.0) 11/04/20 11:42 ABG Potassium 3.3 mmol/L (3.40-4.50) L 11/04/20 11:42 ABG Chloride 115.0 mmol/L (98-107) H 11/04/20 11:42 ABG Glucose 165 mg/dL (65-95) H 11/04/20 11:42 Oxyhemoglobin 94.9 % (95.0-99.0) L 11/07/20 12:55 Carboxyhemoglobin 1 (0.5-1.5) 11/04/20 11:42 FiO2 30 % 11/07/20 12:55 FiO2 % 35 11/04/20 11:42 Sodium 153 mmol/L (137-145) H 11/10/20 13:46 Potassium 3.9 mmol/L (3.6-5.0) 11/10/20 13:46 Chloride 120.6 mmol/L (98-107) H 11/10/20 13:46 Carbon Dioxide 23 mmol/L (22-30) 11/10/20 13:46 Anion Gap 13 mmol/L 11/10/20 13:46 BUN 27 mg/dL (9-20) H 11/10/20 13:46 Creatinine 0.3 mg/dL (0.8-1.3) L 11/10/20 13:46 Estimated GFR > 60 ml/min 11/10/20 13:46 BUN/Creatinine Ratio 90 % 11/10/20 13:46 Glucose 112 mg/dL (75-100) H 11/10/20 13:46 POC Glucose 70 mg/dL (70-105) 11/10/20 23:49 Hemoglobin A1c 5.5 % (4-6) 10/27/20 04:42 Lactic Acid 4.30 mmol/L (0.7-2.0) H* 10/31/20 Unknown Calcium 6.8 mg/dL (8.4-10.2) L 11/10/20 13:46 Phosphorus 4.50 mg/dL (2.5-4.5) D 11/06/20 13:03 Magnesium 1.80 mg/dL (1.7-2.3) 11/07/20 16:45 Total Bilirubin < 0.20 mg/dL (0.1-1.2) 11/06/20 06:45 AST 23 units/L (5-40) 11/06/20 06:45 ALT 20 units/L (7-56) 11/06/20 06:45 Alkaline Phosphatase 117 units/L (35-129) 11/06/20 06:45 Total Creatine Kinase 31 units/L (55-170) L 10/26/20 17:28 Troponin T 0.062 ng/mL (0.00-0.029) H 10/26/20 17:25 Total Protein 5.0 g/dL (6.3-8.2) L 11/06/20 06:45 Albumin 1.4 g/dL (3.9-5) L 11/06/20 06:45 Albumin/Globulin Ratio 0.4 % 11/06/20 06:45 Triglycerides 190 mg/dL (2-149) H 10/26/20 17:25 Cholesterol 92 mg/dL (50-199) 10/26/20 17:25 LDL Cholesterol Direct 33 mg/dL (50-130) L 10/26/20 17:25 HDL Cholesterol 18 mg/dL (40-59) L 10/26/20 17:25 Cholesterol/HDL Ratio 5.11 % 10/26/20 17:25 TSH 1.490 mlU/mL (0.270-4.200) 10/26/20 17:28 Arterial Blood Glucose 165 mg/dL (65-95) H 11/04/20 11:42 Arterial Blood Ionized Calcium 4.0 mg/dL (4.6-5.3) L 11/04/20 11:42 Urine Color Yellow (Yellow) 10/27/20 Unknown Urine Turbidity Turbid (Clear) 10/27/20 Unknown Urine pH 8.0 (5.0-7.0) H 10/27/20 Unknown Ur Specific [place] 1.020 (1.003-1.030) 10/27/20 Unknown Urine Protein >500 mg/dL (Negative) 10/27/20 Unknown Urine Glucose (UA) Neg mg/dL (Negative) 10/27/20 Unknown Urine Ketones Neg mg/dL (Negative) 10/27/20 Unknown Urine Blood Sm (Negative) 10/27/20 Unknown Urine Nitrite Neg (Negative) 10/27/20 Unknown Urine Bilirubin Neg (Negative) 10/27/20 Unknown Urine Urobilinogen < 2.0 mg/dL (<2.0) 10/27/20 Unknown Ur Leukocyte Esterase Mod (Negative) 10/27/20 Unknown Urine WBC (Auto) > 182.0 /HPF (0.0-6.0) H 10/27/20 Unknown Urine RBC (Auto) 35.0 /HPF (0.0-6.0) 10/27/20 Unknown Urine WBC Clumps 3+ /HPF 10/27/20 Unknown Urine Mucus 3+ /HPF 10/27/20 Unknown Urine Yeast (Budding) 3+ /HPF 10/27/20 Unknown Vancomycin Trough 22.0 ug/mL (5.0-20.0) H 10/30/20 Unknown Salicylates < 0.3 mg/dL (2.8-20.0) L 10/26/20 17:28 Acetaminophen 5.0 ug/mL (10.0-30.0) L 10/26/20 17:28 Heparin-induced Plt Ab Negative (Negative) 11/03/20 11:01 UF Heparin High Dose 0 % Release 11/03/20 11:01 MOISES UFH Low Dose 0.1 2 % Release 11/03/20 11:01 MOISES UFH Low Dose 0.5 0 % Release 11/03/20 11:01 Coronavirus (PCR) Negative (Negative) 10/27/20 Unknown Blood Type O POSITIVE 10/30/20 09:30 Antibody Screen Negative 10/30/20 09:30 Crossmatch See Detail 10/30/20 09:30 Rivas/IV: Voiding Method Incontinent Active Medications - Current Medications Current Medications: Generic Name Dose Route Start Last Admin Trade Name Freq PRN Reason Stop Dose Admin Acetaminophen 650 mg 10/26/20 22:22 11/11/20 03:44 Acetaminophen 325 Mg Tab PO 650 mg Q4H PRN Administration Pain MILD(1-3)/Fever >100.5/TIERNEY Amiodarone HCl 200 mg 11/08/20 10:00 11/10/20 10:19 Amiodarone 200 Mg Tab PO 200 mg DAILY MARSHALL Administration Lipase/Protease/Amylase 1 each 10/28/20 13:18 Lipase 10,500/Protease 25,000/Amylase 43,750 (Units) Dr Casper FEEDTUBE PRN PRN For Clogged Feeding Tube Enoxaparin Sodium 40 mg 11/07/20 10:00 11/10/20 10:20 Enoxaparin 40 Mg/0.4 Ml Inj SUB-Q 40 mg QDAY@1000 MARSHALL Administration Famotidine 20 mg 11/11/20 10:00 Famotidine 20 Mg Tab PO BID MARSHALL Ceftriaxone Sodium 2 gm in 100 mls @ 200 mls/hr 10/29/20 13:00 11/10/20 14:55 Rocephin/Ns 2 Gm/100 Ml IV 11/12/20 13:29 200 mls/hr Q24H MARSHALL Administration Protocol Metronidazole 500 mg in 100 mls @ 100 mls/hr 10/29/20 14:00 11/11/20 05:05 Flagyl 500 Mg/100 Ml IV 11/12/20 14:59 100 mls/hr Q8H MARSHALL Administration Protocol Midodrine 10 mg 11/06/20 12:00 11/10/20 15:05 Midodrine 5 Mg Tab PO 10 mg TID@0800,1200,1600 MARSHALL Administration Ondansetron HCl 4 mg 10/26/20 22:22 Ondansetron 4 Mg/2 Ml Inj IV Q8H PRN Nausea And Vomiting Simple Syrup 15 ml 10/28/20 13:18 11/10/20 16:01 Simple Syrup 15 Ml FEEDTUBE 15 ml PRN PRN Administration Hypoglycemia Simple Syrup 30 ml 10/28/20 13:18 Simple Syrup 15 Ml FEEDTUBE PRN PRN Hypoglycemia Sodium Bicarbonate 325 mg 10/28/20 13:18 Sodium Bicarbonate 325 Mg Tab FEEDTUBE PRN PRN For Clogged Feeding Tube Sodium Chloride 10 ml 10/27/20 10:00 11/10/20 21:54 Sodium Chloride 0.9% 10 Ml Flush Syringe IV 10 ml BID MARSHALL Administration Sodium Chloride 10 ml 10/26/20 22:22 Sodium Chloride 0.9% 10 Ml Flush Syringe IV PRN PRN LINE FLUSH Sodium Hypochlorite 1 applic 10/28/20 10:00 11/10/20 21:56 Sodium Hypochlorite, Dakin's 1/2 Strength (0.25%) 473 Ml Topical Soln TP 1 applicatio BID MARSHALL Administration Vancomycin HCl 125 mg 11/05/20 18:00 11/11/20 05:06 Vancomycin 250 Mg/10 Ml Oral Liqd PO 11/15/20 12:01 125 mg Q6HR MARSHALL Administration Protocol Nutrition/Malnutrition Assess - Dietary Evaluation Nutrition/Malnutrition Findings: Nutrition Notes Start: 10/27/20 09:15 Freq: Status: Active Protocol: Document 11/06/20 12:28 CW (Rec: 11/06/20 12:35 CW [id number]) Nutrition Notes Initial or Follow up Brief Note Current Diagnosis Acute Kidney Injury,Decubitus( Pressure Ulcer),Sepsis, Hypertension,Respiratory Failure,Hyperlipidemia Other Pertinent Diagnosis AMS, MRSA, Encephalopathy, Metabiloc Acidosis, pneu ,FTT Current Diet Vital HP at 80 ml/hr Labs/Tests Na 148 BUN 32 BG 143 P 0.9 Pertinent Medications Na3PO4 Height 6 ft 2 in Weight 135 kg [place] Body Weight (kg) 86.36 BMI 38.2 Weight change and time frame Weight stable at this time Weight Status Obese Subjective/Other Information MD verbally requested increase of free water flush d/t hypernatremia. PT remains on mechanical vent. TF still being well tolerated. Percent of energy/protein needs met: 100%/100% Burn Absent Trauma Absent Nutrition Intervention Change Diet Order: Continue TF regime, Increase flush Nutrition Support: Vital HP at 80 ml/hr with a free water flush of 150 ml q4h Kcal 1,920 Protein (gm) 168 Fluid (mL) 1,605 Follow-Up By: 11/11/20 Additional Comments bed continues to rotate patient
--- NOTE | 2020-11-11 08:44 | XRay Report ---
CHEST 1 VIEW 11/11/2020 8:22 AM INDICATION / CLINICAL INFORMATION: Hypoxemia, concern for mucous plug. COMPARISON: 11/10/2020 FINDINGS: SUPPORT DEVICES: Distal aspect of the nasogastric tube is poorly visualized. HEART / MEDIASTINUM: Stable. LUNGS / PLEURA: Essentially complete opacification of the right lung and hazy opacification of the le ft lower lung. This likely represents large right and [id number] left pleural effusions. Ther e is moderate airspace disease throughout the aerated left lung. No pneumothorax. ADDITIONAL FINDINGS: No significant additional findings. IMPRESSION: 1. No significant change. Signer Name: You Lord MD Signed: 11/11/2020 8:39 AM Workstation Name: [id number]
[2020-11-11] MEDS: MIDODRINE 5 MG TAB PO SCH ×3 (09:00→18:00)
[2020-11-11] MEDS: SODIUM HYPOCHLORITE, DAKIN'S 1/2 STRENGTH (0.25%) 473 ML TOPICAL SOLN TP SCH ×2 (10:06→21:02)
[2020-11-11] MEDS: FAMOTIDINE 20 MG TAB PO SCH ×2 (10:10→21:02)
[2020-11-11] MEDS: AMIODARONE 200 MG TAB PO SCH (10:10)
--- NOTE | 2020-11-11 11:42 | Progress Note ---
Assessment and Plan 75 y/o male with acute respiratory failure secondary to sepsis from large sacral decub and likely urinary tract infection Same plan as outlined from yesterday CCT 31 minutes. Subjective Principal diagnosis: Acute Resp Fail, Septic Shock, Sacral Ulcer, AF with RVR Objective Vital Signs - 12hr 11/11/20 11/11/20 11/11/20 00:00 02:00 03:41 Temperature 98.8 F 97.7 F Pulse Rate [ 83 From Monitor] Respiratory 29 H Rate O2 Sat by Pulse 94 94 Oximetry 11/11/20 11/11/20 11/11/20 03:44 04:00 08:00 Temperature Pulse Rate [ 84 84 From Monitor] Respiratory 27 H 11 L 11 L Rate O2 Sat by Pulse 93 93 Oximetry 11/11/20 08:44 Temperature Pulse Rate [ From Monitor] Respiratory Rate O2 Sat by Pulse 92 Oximetry Constitutional: comatose Eyes: non-icteric ENT: other (orally intubated and sedated.) Neck: supple Effort: normal Ascultation: Bilateral: clear Percussion: Bilateral: not dull Cardiovascular: regular rate and rhythm Gastrointestinal: normoactive bowel sounds, soft, non-tender CBC and BMP: 12/04/20 04:41 12/04/20 04:41 ABG, PT/INR, D-dimer: ABG ABG pH 7.440 pH Units (7.350-7.450) 11/07/20 12:55 POC ABG pCO2 28.9 mmHg (32.0-48.0) L 11/04/20 11:42 ABG pCO2 35.4 mm Hg 11/07/20 12:55 POC ABG pO2 64.3 mmHg (83-108) L 11/04/20 11:42 ABG pO2 82.0 mm Hg (80.0-90.0) 11/07/20 12:55 POC ABG HCO3 23.3 11/04/20 11:42 ABG O2 Saturation 96.9 % (95.0-99.0) 11/07/20 12:55 Abnormal lab findings: Abnormal Labs 10/26/20 10/26/20 10/26/20 17:25 17:25 17:25 WBC 23.3 H RBC 3.10 L Hgb 9.6 L Hct 30.3 L MCV 98 H MCHC RDW 17.4 H Plt Count 521 H Lymph % (Auto) Seg Neutrophils % Seg Neuts % (Manual) 78.0 H Lymphocytes % (Manual) 11.0 L Nucleated RBC % Seg Neutrophils # Seg Neutrophils # Man 18.2 H Lymphocytes # (Manual) Monocytes # (Manual) 1.4 H ABG pH POC ABG pCO2 POC ABG pO2 ABG pO2 ABG HCO3 ABG O2 Saturation ABG Base Excess ABG Hemoglobin ABG Oxyhemoglobin ABG Potassium ABG Chloride ABG Glucose Oxyhemoglobin Carboxyhemoglobin Sodium 148 H Potassium Chloride 109.3 H Carbon Dioxide 19 L BUN 57 H Creatinine 1.5 H Glucose 151 H POC Glucose Lactic Acid 9.60 H* Calcium Phosphorus Magnesium Total Creatine Kinase Troponin T 0.062 H Total Protein Albumin 1.7 L Triglycerides 190 H LDL Cholesterol Direct 33 L HDL Cholesterol 18 L Arterial Blood Glucose Arterial Blood Ionized Calcium Urine pH Urine WBC (Auto) Vancomycin Trough Salicylates Acetaminophen Crossmatch 10/26/20 10/26/20 10/26/20 17:28 17:28 17:28 WBC RBC Hgb Hct MCV MCHC RDW Plt Count Lymph % (Auto) Seg Neutrophils % Seg Neuts % (Manual) Lymphocytes % (Manual) Nucleated RBC % Seg Neutrophils # Seg Neutrophils # Man Lymphocytes # (Manual) Monocytes # (Manual) ABG pH POC ABG pCO2 POC ABG pO2 ABG pO2 ABG HCO3 ABG O2 Saturation ABG Base Excess ABG Hemoglobin ABG Oxyhemoglobin ABG Potassium ABG Chloride ABG Glucose Oxyhemoglobin Carboxyhemoglobin Sodium Potassium Chloride Carbon Dioxide BUN Creatinine Glucose POC Glucose Lactic Acid Calcium Phosphorus Magnesium Total Creatine Kinase 31 L Troponin T Total Protein Albumin Triglycerides LDL Cholesterol Direct HDL Cholesterol Arterial Blood Glucose Arterial Blood Ionized Calcium Urine pH Urine WBC (Auto) Vancomycin Trough Salicylates < 0.3 L Acetaminophen 5.0 L Crossmatch 10/26/20 10/26/20 10/26/20 17:30 20:11 22:00 WBC RBC Hgb Hct MCV MCHC RDW Plt Count Lymph % (Auto) Seg Neutrophils % Seg Neuts % (Manual) Lymphocytes % (Manual) Nucleated RBC % Seg Neutrophils # Seg Neutrophils # Man Lymphocytes # (Manual) Monocytes # (Manual) ABG pH 7.235 L POC ABG pCO2 POC ABG pO2 ABG pO2 312.4 H ABG HCO3 16.4 L ABG O2 Saturation 99.5 H ABG Base Excess -10.4 L ABG Hemoglobin 11.0 L ABG Oxyhemoglobin ABG Potassium ABG Chloride ABG Glucose Oxyhemoglobin Carboxyhemoglobin Sodium Potassium Chloride Carbon Dioxide BUN Creatinine Glucose POC Glucose Lactic Acid 7.70 H* 6.40 H* Calcium Phosphorus Magnesium Total Creatine Kinase Troponin T Total Protein Albumin Triglycerides LDL Cholesterol Direct HDL Cholesterol Arterial Blood Glucose Arterial Blood Ionized Calcium Urine pH Urine WBC (Auto) Vancomycin Trough Salicylates Acetaminophen Crossmatch 10/27/20 10/27/20 10/27/20 03:25 03:30 04:00 WBC 20.3 H RBC 3.10 L Hgb 9.6 L Hct 30.6 L MCV 99 H MCHC 31 L RDW 16.9 H Plt Count Lymph % (Auto) Seg Neutrophils % Seg Neuts % (Manual) Lymphocytes % (Manual) Nucleated RBC % Seg Neutrophils # Seg Neutrophils # Man 11.6 H Lymphocytes # (Manual) Monocytes # (Manual) ABG pH 7.218 L POC ABG pCO2 POC ABG pO2 62.9 L ABG pO2 ABG HCO3 ABG O2 Saturation ABG Base Excess ABG Hemoglobin 10.6 L ABG Oxyhemoglobin 86.6 L ABG Potassium 4.8 H ABG Chloride 114.0 H ABG Glucose 116 H Oxyhemoglobin Carboxyhemoglobin 0.4 L Sodium Potassium Chloride 110.2 H Carbon Dioxide 17 L BUN 55 H Creatinine 1.5 H Glucose 109 H POC Glucose Lactic Acid Calcium 7.9 L Phosphorus Magnesium Total Creatine Kinase Troponin T Total Protein Albumin 1.3 L Triglycerides LDL Cholesterol Direct HDL Cholesterol Arterial Blood Glucose 116 H Arterial Blood Ionized Calcium Urine pH Urine WBC (Auto) Vancomycin Trough Salicylates Acetaminophen Crossmatch 10/27/20 10/28/20 10/28/20 Unknown 00:40 00:40 WBC 23.1 H RBC 2.42 L Hgb 7.5 L Hct 23.7 L D MCV 98 H MCHC RDW 16.8 H Plt Count Lymph % (Auto) Seg Neutrophils % Seg Neuts % (Manual) Lymphocytes % (Manual) Nucleated RBC % Seg Neutrophils # Seg Neutrophils # Man Lymphocytes # (Manual) Monocytes # (Manual) ABG pH POC ABG pCO2 POC ABG pO2 ABG pO2 ABG HCO3 ABG O2 Saturation ABG Base Excess ABG Hemoglobin ABG Oxyhemoglobin ABG Potassium ABG Chloride ABG Glucose Oxyhemoglobin Carboxyhemoglobin Sodium Potassium Chloride 111.4 H Carbon Dioxide 19 L BUN 49 H Creatinine Glucose POC Glucose Lactic Acid Calcium 7.3 L Phosphorus Magnesium 1.40 L Total Creatine Kinase Troponin T Total Protein 5.8 L Albumin 1.2 L Triglycerides LDL Cholesterol Direct HDL Cholesterol Arterial Blood Glucose Arterial Blood Ionized Calcium Urine pH 8.0 H Urine WBC (Auto) > 182.0 H Vancomycin Trough Salicylates Acetaminophen Crossmatch 10/28/20 10/28/20 10/28/20 03:30 05:36 05:36 WBC RBC Hgb Hct MCV MCHC RDW Plt Count Lymph % (Auto) Seg Neutrophils % Seg Neuts % (Manual) Lymphocytes % (Manual) Nucleated RBC % Seg Neutrophils # Seg Neutrophils # Man Lymphocytes # (Manual) Monocytes # (Manual) ABG pH 7.175 L POC ABG pCO2 POC ABG pO2 71.5 L ABG pO2 ABG HCO3 ABG O2 Saturation ABG Base Excess ABG Hemoglobin 8.8 L ABG Oxyhemoglobin ABG Potassium 4.7 H ABG Chloride 114.0 H ABG Glucose 100 H Oxyhemoglobin Carboxyhemoglobin Sodium Potassium Chloride 114.6 H Carbon Dioxide 15 L BUN 48 H Creatinine 1.4 H Glucose POC Glucose Lactic Acid 7.60 H* Calcium 7.7 L Phosphorus Magnesium Total Creatine Kinase Troponin T Total Protein Albumin Triglycerides LDL Cholesterol Direct HDL Cholesterol Arterial Blood Glucose 100 H Arterial Blood Ionized Calcium 4.4 L Urine pH Urine WBC (Auto) Vancomycin Trough Salicylates Acetaminophen Crossmatch 10/28/20 10/28/20 10/29/20 17:18 23:18 03:50 WBC RBC Hgb Hct MCV MCHC RDW Plt Count Lymph % (Auto) Seg Neutrophils % Seg Neuts % (Manual) Lymphocytes % (Manual) Nucleated RBC % Seg Neutrophils # Seg Neutrophils # Man Lymphocytes # (Manual) Monocytes # (Manual) ABG pH POC ABG pCO2 30.0 L POC ABG pO2 ABG pO2 ABG HCO3 ABG O2 Saturation ABG Base Excess ABG Hemoglobin 8.1 L ABG Oxyhemoglobin ABG Potassium ABG Chloride 113.0 H ABG Glucose 153 H Oxyhemoglobin Carboxyhemoglobin 0.4 L Sodium Potassium Chloride Carbon Dioxide BUN Creatinine Glucose POC Glucose 134 H 149 H Lactic Acid Calcium Phosphorus Magnesium Total Creatine Kinase Troponin T Total Protein Albumin Triglycerides LDL Cholesterol Direct HDL Cholesterol Arterial Blood Glucose 153 H Arterial Blood Ionized Calcium 4.1 L Urine pH Urine WBC (Auto) Vancomycin Trough Salicylates Acetaminophen Crossmatch 10/29/20 10/29/20 10/29/20 05:09 05:15 05:15 WBC 23.9 H RBC 2.66 L Hgb 8.3 L Hct 26.3 L MCV 99 H MCHC RDW 17.5 H Plt Count Lymph % (Auto) Seg Neutrophils % Seg Neuts % (Manual) Lymphocytes % (Manual) Nucleated RBC % Seg Neutrophils # Seg Neutrophils # Man Lymphocytes # (Manual) Monocytes # (Manual) ABG pH POC ABG pCO2 POC ABG pO2 ABG pO2 ABG HCO3 ABG O2 Saturation ABG Base Excess ABG Hemoglobin ABG Oxyhemoglobin ABG Potassium ABG Chloride ABG Glucose Oxyhemoglobin Carboxyhemoglobin Sodium Potassium Chloride 110.4 H Carbon Dioxide 15 L BUN 40 H Creatinine Glucose 140 H POC Glucose 123 H Lactic Acid Calcium 7.0 L Phosphorus Magnesium Total Creatine Kinase Troponin T Total Protein 6.0 L Albumin 1.0 L Triglycerides LDL Cholesterol Direct HDL Cholesterol Arterial Blood Glucose Arterial Blood Ionized Calcium Urine pH Urine WBC (Auto) Vancomycin Trough Salicylates Acetaminophen Crossmatch 10/29/20 10/29/20 10/29/20 05:15 10:37 11:41 WBC RBC Hgb Hct MCV MCHC RDW Plt Count Lymph % (Auto) Seg Neutrophils % Seg Neuts % (Manual) Lymphocytes % (Manual) Nucleated RBC % Seg Neutrophils # Seg Neutrophils # Man Lymphocytes # (Manual) Monocytes # (Manual) ABG pH POC ABG pCO2 POC ABG pO2 ABG pO2 ABG HCO3 ABG O2 Saturation ABG Base Excess ABG Hemoglobin ABG Oxyhemoglobin ABG Potassium ABG Chloride ABG Glucose Oxyhemoglobin Carboxyhemoglobin Sodium Potassium Chloride Carbon Dioxide BUN Creatinine Glucose POC Glucose 121 H Lactic Acid 9.90 H* 10.90 H* Calcium Phosphorus Magnesium Total Creatine Kinase Troponin T Total Protein Albumin Triglycerides LDL Cholesterol Direct HDL Cholesterol Arterial Blood Glucose Arterial Blood Ionized Calcium Urine pH Urine WBC (Auto) Vancomycin Trough Salicylates Acetaminophen Crossmatch 10/29/20 10/29/20 10/30/20 15:56 23:24 02:26 WBC RBC Hgb Hct MCV MCHC RDW Plt Count Lymph % (Auto) Seg Neutrophils % Seg Neuts % (Manual) Lymphocytes % (Manual) Nucleated RBC % Seg Neutrophils # Seg Neutrophils # Man Lymphocytes # (Manual) Monocytes # (Manual) ABG pH POC ABG pCO2 POC ABG pO2 76.6 L ABG pO2 ABG HCO3 ABG O2 Saturation ABG Base Excess ABG Hemoglobin 6.4 L ABG Oxyhemoglobin 93.8 L ABG Potassium 2.9 L ABG Chloride 110.0 H ABG Glucose 212 H Oxyhemoglobin Carboxyhemoglobin Sodium Potassium Chloride Carbon Dioxide BUN Creatinine Glucose POC Glucose 132 H 175 H Lactic Acid Calcium Phosphorus Magnesium Total Creatine Kinase Troponin T Total Protein Albumin Triglycerides LDL Cholesterol Direct HDL Cholesterol Arterial Blood Glucose 212 H Arterial Blood Ionized Calcium 3.9 L Urine pH Urine WBC (Auto) Vancomycin Trough Salicylates Acetaminophen Crossmatch 10/30/20 10/30/20 10/30/20 04:54 04:54 05:14 WBC 20.7 H RBC 2.28 L Hgb 7.0 L Hct 21.9 L MCV 96 H MCHC RDW 17.0 H Plt Count 90 L Lymph % (Auto) Seg Neutrophils % Seg Neuts % (Manual) Lymphocytes % (Manual) Nucleated RBC % Seg Neutrophils # Seg Neutrophils # Man Lymphocytes # (Manual) Monocytes # (Manual) ABG pH POC ABG pCO2 POC ABG pO2 ABG pO2 ABG HCO3 ABG O2 Saturation ABG Base Excess ABG Hemoglobin ABG Oxyhemoglobin ABG Potassium ABG Chloride ABG Glucose Oxyhemoglobin Carboxyhemoglobin Sodium Potassium 3.0 L D Chloride Carbon Dioxide BUN 28 H Creatinine 0.6 L Glucose 214 H POC Glucose 187 H Lactic Acid Calcium 6.2 L Phosphorus Magnesium Total Creatine Kinase Troponin T Total Protein Albumin Triglycerides LDL Cholesterol Direct HDL Cholesterol Arterial Blood Glucose Arterial Blood Ionized Calcium Urine pH Urine WBC (Auto) Vancomycin Trough Salicylates Acetaminophen Crossmatch 10/30/20 10/30/20 10/30/20 09:30 11:40 17:51 WBC RBC Hgb Hct MCV MCHC RDW Plt Count Lymph % (Auto) Seg Neutrophils % Seg Neuts % (Manual) Lymphocytes % (Manual) Nucleated RBC % Seg Neutrophils # Seg Neutrophils # Man Lymphocytes # (Manual) Monocytes # (Manual) ABG pH POC ABG pCO2 POC ABG pO2 ABG pO2 ABG HCO3 ABG O2 Saturation ABG Base Excess ABG Hemoglobin ABG Oxyhemoglobin ABG Potassium ABG Chloride ABG Glucose Oxyhemoglobin Carboxyhemoglobin Sodium Potassium Chloride Carbon Dioxide BUN Creatinine Glucose POC Glucose 183 H 136 H Lactic Acid Calcium Phosphorus Magnesium Total Creatine Kinase Troponin T Total Protein Albumin Triglycerides LDL Cholesterol Direct HDL Cholesterol Arterial Blood Glucose Arterial Blood Ionized Calcium Urine pH Urine WBC (Auto) Vancomycin Trough Salicylates Acetaminophen Crossmatch See Detail 10/30/20 10/30/20 10/30/20 18:53 23:25 Unknown WBC RBC Hgb Hct MCV MCHC RDW Plt Count Lymph % (Auto) Seg Neutrophils % Seg Neuts % (Manual) Lymphocytes % (Manual) Nucleated RBC % Seg Neutrophils # Seg Neutrophils # Man Lymphocytes # (Manual) Monocytes # (Manual) ABG pH POC ABG pCO2 POC ABG pO2 ABG pO2 ABG HCO3 ABG O2 Saturation ABG Base Excess ABG Hemoglobin ABG Oxyhemoglobin ABG Potassium ABG Chloride ABG Glucose Oxyhemoglobin Carboxyhemoglobin Sodium Potassium Chloride Carbon Dioxide BUN Creatinine Glucose POC Glucose 130 H Lactic Acid Calcium Phosphorus Magnesium Total Creatine Kinase Troponin T Total Protein Albumin Triglycerides LDL Cholesterol Direct HDL Cholesterol Arterial Blood Glucose Arterial Blood Ionized Calcium Urine pH Urine WBC (Auto) Vancomycin Trough 21.4 H 22.0 H Salicylates Acetaminophen Crossmatch 10/30/20 10/31/20 10/31/20 Unknown 02:54 03:42 WBC 21.1 H 23.0 H RBC 2.36 L Hgb 7.3 L 11.4 L D Hct 22.7 L 34.1 L D MCV 96 H MCHC RDW 17.1 H 16.2 H Plt Count 73 L 33 L Lymph % (Auto) Seg Neutrophils % Seg Neuts % (Manual) Lymphocytes % (Manual) Nucleated RBC % Seg Neutrophils # Seg Neutrophils # Man Lymphocytes # (Manual) Monocytes # (Manual) ABG pH 7.517 H POC ABG pCO2 25.7 L POC ABG pO2 52.3 L ABG pO2 ABG HCO3 ABG O2 Saturation ABG Base Excess ABG Hemoglobin ABG Oxyhemoglobin 90.8 L ABG Potassium ABG Chloride 109.0 H ABG Glucose 147 H Oxyhemoglobin Carboxyhemoglobin Sodium Potassium Chloride Carbon Dioxide BUN Creatinine Glucose POC Glucose Lactic Acid Calcium Phosphorus Magnesium Total Creatine Kinase Troponin T Total Protein Albumin Triglycerides LDL Cholesterol Direct HDL Cholesterol Arterial Blood Glucose 147 H Arterial Blood Ionized Calcium 4.0 L Urine pH Urine WBC (Auto) Vancomycin Trough Salicylates Acetaminophen Crossmatch 10/31/20 10/31/20 10/31/20 04:37 04:37 05:08 WBC 21.7 H RBC Hgb Hct MCV MCHC RDW 16.1 H Plt Count 39 L Lymph % (Auto) Seg Neutrophils % Seg Neuts % (Manual) Lymphocytes % (Manual) Nucleated RBC % Seg Neutrophils # Seg Neutrophils # Man Lymphocytes # (Manual) Monocytes # (Manual) ABG pH POC ABG pCO2 POC ABG pO2 ABG pO2 ABG HCO3 ABG O2 Saturation ABG Base Excess ABG Hemoglobin ABG Oxyhemoglobin ABG Potassium ABG Chloride ABG Glucose Oxyhemoglobin Carboxyhemoglobin Sodium Potassium Chloride 108.4 H Carbon Dioxide BUN 25 H Creatinine 0.5 L Glucose 140 H POC Glucose 140 H Lactic Acid Calcium 6.1 L Phosphorus Magnesium 1.50 L Total Creatine Kinase Troponin T Total Protein Albumin Triglycerides LDL Cholesterol Direct HDL Cholesterol Arterial Blood Glucose Arterial Blood Ionized Calcium Urine pH Urine WBC (Auto) Vancomycin Trough Salicylates Acetaminophen Crossmatch 10/31/20 10/31/20 10/31/20 11:12 18:50 23:21 WBC RBC Hgb Hct MCV MCHC RDW Plt Count Lymph % (Auto) Seg Neutrophils % Seg Neuts % (Manual) Lymphocytes % (Manual) Nucleated RBC % Seg Neutrophils # Seg Neutrophils # Man Lymphocytes # (Manual) Monocytes # (Manual) ABG pH POC ABG pCO2 POC ABG pO2 ABG pO2 ABG HCO3 ABG O2 Saturation ABG Base Excess ABG Hemoglobin ABG Oxyhemoglobin ABG Potassium ABG Chloride ABG Glucose Oxyhemoglobin Carboxyhemoglobin Sodium Potassium Chloride Carbon Dioxide BUN Creatinine Glucose POC Glucose 125 H 142 H 127 H Lactic Acid Calcium Phosphorus Magnesium Total Creatine Kinase Troponin T Total Protein Albumin Triglycerides LDL Cholesterol Direct HDL Cholesterol Arterial Blood Glucose Arterial Blood Ionized Calcium Urine pH Urine WBC (Auto) Vancomycin Trough Salicylates Acetaminophen Crossmatch 10/31/20 11/01/20 11/01/20 Unknown 03:40 04:21 WBC RBC Hgb Hct MCV MCHC RDW Plt Count Lymph % (Auto) Seg Neutrophils % Seg Neuts % (Manual) Lymphocytes % (Manual) Nucleated RBC % Seg Neutrophils # Seg Neutrophils # Man Lymphocytes # (Manual) Monocytes # (Manual) ABG pH 7.489 H POC ABG pCO2 POC ABG pO2 ABG pO2 77.2 L ABG HCO3 ABG O2 Saturation ABG Base Excess ABG Hemoglobin 7.1 L ABG Oxyhemoglobin ABG Potassium ABG Chloride ABG Glucose Oxyhemoglobin Carboxyhemoglobin Sodium Potassium 3.1 L Chloride 107.1 H Carbon Dioxide BUN 25 H Creatinine 0.5 L Glucose 148 H POC Glucose Lactic Acid 4.30 H* Calcium 6.0 L Phosphorus Magnesium Total Creatine Kinase Troponin T Total Protein Albumin Triglycerides LDL Cholesterol Direct HDL Cholesterol Arterial Blood Glucose Arterial Blood Ionized Calcium Urine pH Urine WBC (Auto) Vancomycin Trough Salicylates Acetaminophen Crossmatch 11/01/20 11/01/20 11/01/20 05:13 11:42 17:38 WBC RBC Hgb Hct MCV MCHC RDW Plt Count Lymph % (Auto) Seg Neutrophils % Seg Neuts % (Manual) Lymphocytes % (Manual) Nucleated RBC % Seg Neutrophils # Seg Neutrophils # Man Lymphocytes # (Manual) Monocytes # (Manual) ABG pH POC ABG pCO2 POC ABG pO2 ABG pO2 ABG HCO3 ABG O2 Saturation ABG Base Excess ABG Hemoglobin ABG Oxyhemoglobin ABG Potassium ABG Chloride ABG Glucose Oxyhemoglobin Carboxyhemoglobin Sodium Potassium Chloride Carbon Dioxide BUN Creatinine Glucose POC Glucose 139 H 139 H 161 H Lactic Acid Calcium Phosphorus Magnesium Total Creatine Kinase Troponin T Total Protein Albumin Triglycerides LDL Cholesterol Direct HDL Cholesterol Arterial Blood Glucose Arterial Blood Ionized Calcium Urine pH Urine WBC (Auto) Vancomycin Trough Salicylates Acetaminophen Crossmatch 11/01/20 11/01/20 11/02/20 23:20 Unknown 04:30 WBC 18.2 H RBC 3.27 L Hgb 9.9 L Hct 30.1 L D MCV MCHC RDW 15.7 H Plt Count 34 L Lymph % (Auto) Seg Neutrophils % Seg Neuts % (Manual) Lymphocytes % (Manual) Nucleated RBC % Seg Neutrophils # Seg Neutrophils # Man Lymphocytes # (Manual) Monocytes # (Manual) ABG pH 7.456 H POC ABG pCO2 POC ABG pO2 ABG pO2 ABG HCO3 ABG O2 Saturation ABG Base Excess ABG Hemoglobin 9.2 L ABG Oxyhemoglobin ABG Potassium ABG Chloride ABG Glucose Oxyhemoglobin Carboxyhemoglobin Sodium Potassium Chloride Carbon Dioxide BUN Creatinine Glucose POC Glucose 168 H Lactic Acid Calcium Phosphorus Magnesium Total Creatine Kinase Troponin T Total Protein Albumin Triglycerides LDL Cholesterol Direct HDL Cholesterol Arterial Blood Glucose Arterial Blood Ionized Calcium Urine pH Urine WBC (Auto) Vancomycin Trough Salicylates Acetaminophen Crossmatch 11/02/20 11/02/20 11/02/20 06:29 08:40 08:40 WBC 16.6 H RBC 2.87 L Hgb 8.8 L Hct 26.6 L MCV MCHC RDW 15.8 H Plt Count 30 L Lymph % (Auto) Seg Neutrophils % Seg Neuts % (Manual) 97.0 H Lymphocytes % (Manual) 2.0 L Nucleated RBC % 1.0 H Seg Neutrophils # Seg Neutrophils # Man 16.1 H Lymphocytes # (Manual) 0.3 L Monocytes # (Manual) ABG pH POC ABG pCO2 POC ABG pO2 ABG pO2 ABG HCO3 ABG O2 Saturation ABG Base Excess ABG Hemoglobin ABG Oxyhemoglobin ABG Potassium ABG Chloride ABG Glucose Oxyhemoglobin Carboxyhemoglobin Sodium Potassium 2.4 L* D Chloride 110.2 H Carbon Dioxide BUN 23 H Creatinine 0.4 L Glucose 154 H POC Glucose 131 H Lactic Acid Calcium 6.1 L Phosphorus Magnesium 1.50 L Total Creatine Kinase Troponin T Total Protein Albumin Triglycerides LDL Cholesterol Direct HDL Cholesterol Arterial Blood Glucose Arterial Blood Ionized Calcium Urine pH Urine WBC (Auto) Vancomycin Trough Salicylates Acetaminophen Crossmatch 11/02/20 11/02/20 11/02/20 13:17 17:25 18:05 WBC RBC Hgb Hct MCV MCHC RDW Plt Count Lymph % (Auto) Seg Neutrophils % Seg Neuts % (Manual) Lymphocytes % (Manual) Nucleated RBC % Seg Neutrophils # Seg Neutrophils # Man Lymphocytes # (Manual) Monocytes # (Manual) ABG pH POC ABG pCO2 POC ABG pO2 ABG pO2 ABG HCO3 ABG O2 Saturation ABG Base Excess ABG Hemoglobin ABG Oxyhemoglobin ABG Potassium ABG Chloride ABG Glucose Oxyhemoglobin Carboxyhemoglobin Sodium Potassium 3.1 L D Chloride Carbon Dioxide BUN Creatinine Glucose POC Glucose 134 H 140 H Lactic Acid Calcium Phosphorus Magnesium Total Creatine Kinase Troponin T Total Protein Albumin Triglycerides LDL Cholesterol Direct HDL Cholesterol Arterial Blood Glucose Arterial Blood Ionized Calcium Urine pH Urine WBC (Auto) Vancomycin Trough Salicylates Acetaminophen Crossmatch 11/02/20 11/03/20 11/03/20 23:36 04:15 05:07 WBC RBC Hgb Hct MCV MCHC RDW Plt Count Lymph % (Auto) Seg Neutrophils % Seg Neuts % (Manual) Lymphocytes % (Manual) Nucleated RBC % Seg Neutrophils # Seg Neutrophils # Man Lymphocytes # (Manual) Monocytes # (Manual) ABG pH POC ABG pCO2 POC ABG pO2 ABG pO2 ABG HCO3 ABG O2 Saturation ABG Base Excess ABG Hemoglobin ABG Oxyhemoglobin ABG Potassium ABG Chloride ABG Glucose Oxyhemoglobin Carboxyhemoglobin Sodium Potassium 3.0 L Chloride 111.8 H Carbon Dioxide BUN 24 H Creatinine 0.3 L Glucose 141 H POC Glucose 127 H 156 H Lactic Acid Calcium 5.8 L* Phosphorus Magnesium 1.60 L Total Creatine Kinase Troponin T Total Protein Albumin Triglycerides LDL Cholesterol Direct HDL Cholesterol Arterial Blood Glucose Arterial Blood Ionized Calcium Urine pH Urine WBC (Auto) Vancomycin Trough Salicylates Acetaminophen Crossmatch 11/03/20 11/03/20 11/04/20 11:14 17:31 00:17 WBC RBC Hgb Hct MCV MCHC RDW Plt Count Lymph % (Auto) Seg Neutrophils % Seg Neuts % (Manual) Lymphocytes % (Manual) Nucleated RBC % Seg Neutrophils # Seg Neutrophils # Man Lymphocytes # (Manual) Monocytes # (Manual) ABG pH POC ABG pCO2 POC ABG pO2 ABG pO2 ABG HCO3 ABG O2 Saturation ABG Base Excess ABG Hemoglobin ABG Oxyhemoglobin ABG Potassium ABG Chloride ABG Glucose Oxyhemoglobin Carboxyhemoglobin Sodium Potassium Chloride Carbon Dioxide BUN Creatinine Glucose POC Glucose 137 H 151 H 156 H Lactic Acid Calcium Phosphorus Magnesium Total Creatine Kinase Troponin T Total Protein Albumin Triglycerides LDL Cholesterol Direct HDL Cholesterol Arterial Blood Glucose Arterial Blood Ionized Calcium Urine pH Urine WBC (Auto) Vancomycin Trough Salicylates Acetaminophen Crossmatch 11/04/20 11/04/20 11/04/20 05:34 05:34 11:16 WBC 21.9 H RBC 2.67 L Hgb 8.2 L Hct 24.8 L MCV MCHC RDW 15.6 H Plt Count 48 L Lymph % (Auto) Seg Neutrophils % Seg Neuts % (Manual) Lymphocytes % (Manual) Nucleated RBC % Seg Neutrophils # Seg Neutrophils # Man Lymphocytes # (Manual) Monocytes # (Manual) ABG pH POC ABG pCO2 POC ABG pO2 ABG pO2 ABG HCO3 ABG O2 Saturation ABG Base Excess ABG Hemoglobin ABG Oxyhemoglobin ABG Potassium ABG Chloride ABG Glucose Oxyhemoglobin Carboxyhemoglobin Sodium 146 H Potassium Chloride 114.6 H Carbon Dioxide BUN 29 H Creatinine 0.3 L Glucose 173 H POC Glucose 156 H Lactic Acid Calcium 5.7 L* Phosphorus Magnesium Total Creatine Kinase Troponin T Total Protein Albumin Triglycerides LDL Cholesterol Direct HDL Cholesterol Arterial Blood Glucose Arterial Blood Ionized Calcium Urine pH Urine WBC (Auto) Vancomycin Trough Salicylates Acetaminophen Crossmatch 11/04/20 11/04/20 11/04/20 11:42 17:18 23:12 WBC RBC Hgb Hct MCV MCHC RDW Plt Count Lymph % (Auto) Seg Neutrophils % Seg Neuts % (Manual) Lymphocytes % (Manual) Nucleated RBC % Seg Neutrophils # Seg Neutrophils # Man Lymphocytes # (Manual) Monocytes # (Manual) ABG pH 7.525 H POC ABG pCO2 28.9 L POC ABG pO2 64.3 L ABG pO2 ABG HCO3 ABG O2 Saturation ABG Base Excess ABG Hemoglobin 8.2 L ABG Oxyhemoglobin ABG Potassium 3.3 L ABG Chloride 115.0 H ABG Glucose 165 H Oxyhemoglobin Carboxyhemoglobin Sodium Potassium Chloride Carbon Dioxide BUN Creatinine Glucose POC Glucose 144 H 155 H Lactic Acid Calcium Phosphorus Magnesium Total Creatine Kinase Troponin T Total Protein Albumin Triglycerides LDL Cholesterol Direct HDL Cholesterol Arterial Blood Glucose 165 H Arterial Blood Ionized Calcium 4.0 L Urine pH Urine WBC (Auto) Vancomycin Trough Salicylates Acetaminophen Crossmatch 11/05/20 11/05/20 11/05/20 04:48 04:48 05:57 WBC 17.4 H RBC 2.49 L Hgb 7.8 L Hct 23.5 L MCV MCHC RDW 16.0 H Plt Count 69 L Lymph % (Auto) Seg Neutrophils % Seg Neuts % (Manual) Lymphocytes % (Manual) Nucleated RBC % Seg Neutrophils # Seg Neutrophils # Man Lymphocytes # (Manual) Monocytes # (Manual) ABG pH POC ABG pCO2 POC ABG pO2 ABG pO2 ABG HCO3 ABG O2 Saturation ABG Base Excess ABG Hemoglobin ABG Oxyhemoglobin ABG Potassium ABG Chloride ABG Glucose Oxyhemoglobin Carboxyhemoglobin Sodium 147 H Potassium 3.5 L Chloride 115.4 H Carbon Dioxide BUN 34 H Creatinine 0.3 L Glucose 154 H POC Glucose 146 H Lactic Acid Calcium 6.1 L Phosphorus 2.00 L Magnesium Total Creatine Kinase Troponin T Total Protein Albumin Triglycerides LDL Cholesterol Direct HDL Cholesterol Arterial Blood Glucose Arterial Blood Ionized Calcium Urine pH Urine WBC (Auto) Vancomycin Trough Salicylates Acetaminophen Crossmatch 11/05/20 11/05/20 11/05/20 11:33 17:52 23:37 WBC RBC Hgb Hct MCV MCHC RDW Plt Count Lymph % (Auto) Seg Neutrophils % Seg Neuts % (Manual) Lymphocytes % (Manual) Nucleated RBC % Seg Neutrophils # Seg Neutrophils # Man Lymphocytes # (Manual) Monocytes # (Manual) ABG pH POC ABG pCO2 POC ABG pO2 ABG pO2 ABG HCO3 ABG O2 Saturation ABG Base Excess ABG Hemoglobin ABG Oxyhemoglobin ABG Potassium ABG Chloride ABG Glucose Oxyhemoglobin Carboxyhemoglobin Sodium Potassium Chloride Carbon Dioxide BUN Creatinine Glucose POC Glucose 144 H 136 H 151 H Lactic Acid Calcium Phosphorus Magnesium Total Creatine Kinase Troponin T Total Protein Albumin Triglycerides LDL Cholesterol Direct HDL Cholesterol Arterial Blood Glucose Arterial Blood Ionized Calcium Urine pH Urine WBC (Auto) Vancomycin Trough Salicylates Acetaminophen Crossmatch 11/06/20 11/06/20 11/06/20 05:36 06:45 06:45 WBC 15.0 H RBC 2.33 L Hgb 7.2 L Hct 22.1 L MCV 95 H MCHC RDW 16.2 H Plt Count 103 L Lymph % (Auto) Seg Neutrophils % Seg Neuts % (Manual) Lymphocytes % (Manual) Nucleated RBC % Seg Neutrophils # Seg Neutrophils # Man Lymphocytes # (Manual) Monocytes # (Manual) ABG pH POC ABG pCO2 POC ABG pO2 ABG pO2 ABG HCO3 ABG O2 Saturation ABG Base Excess ABG Hemoglobin ABG Oxyhemoglobin ABG Potassium ABG Chloride ABG Glucose Oxyhemoglobin Carboxyhemoglobin Sodium 148 H Potassium Chloride 118.2 H Carbon Dioxide BUN 32 H Creatinine 0.4 L Glucose 153 H POC Glucose 140 H Lactic Acid Calcium 6.4 L Phosphorus 0.90 L* D Magnesium Total Creatine Kinase Troponin T Total Protein 5.0 L Albumin 1.4 L Triglycerides LDL Cholesterol Direct HDL Cholesterol Arterial Blood Glucose Arterial Blood Ionized Calcium Urine pH Urine WBC (Auto) Vancomycin Trough Salicylates Acetaminophen Crossmatch 11/06/20 11/06/20 11/06/20 11:32 17:37 23:19 WBC RBC Hgb Hct MCV MCHC RDW Plt Count Lymph % (Auto) Seg Neutrophils % Seg Neuts % (Manual) Lymphocytes % (Manual) Nucleated RBC % Seg Neutrophils # Seg Neutrophils # Man Lymphocytes # (Manual) Monocytes # (Manual) ABG pH POC ABG pCO2 POC ABG pO2 ABG pO2 ABG HCO3 ABG O2 Saturation ABG Base Excess ABG Hemoglobin ABG Oxyhemoglobin ABG Potassium ABG Chloride ABG Glucose Oxyhemoglobin Carboxyhemoglobin Sodium Potassium Chloride Carbon Dioxide BUN Creatinine Glucose POC Glucose 132 H 133 H 145 H Lactic Acid Calcium Phosphorus Magnesium Total Creatine Kinase Troponin T Total Protein Albumin Triglycerides LDL Cholesterol Direct HDL Cholesterol Arterial Blood Glucose Arterial Blood Ionized Calcium Urine pH Urine WBC (Auto) Vancomycin Trough Salicylates Acetaminophen Crossmatch 11/07/20 11/07/20 11/07/20 12:55 16:45 16:45 WBC 12.0 H RBC 3.63 L Hgb 11.4 L D Hct MCV 104 H MCHC 30 L RDW 18.0 H Plt Count 133 L Lymph % (Auto) Seg Neutrophils % Seg Neuts % (Manual) Lymphocytes % (Manual) Nucleated RBC % Seg Neutrophils # Seg Neutrophils # Man Lymphocytes # (Manual) Monocytes # (Manual) ABG pH POC ABG pCO2 POC ABG pO2 ABG pO2 ABG HCO3 ABG O2 Saturation ABG Base Excess ABG Hemoglobin 7.7 L ABG Oxyhemoglobin ABG Potassium ABG Chloride ABG Glucose Oxyhemoglobin 94.9 L Carboxyhemoglobin Sodium 149 H Potassium Chloride 119.8 H Carbon Dioxide BUN 31 H Creatinine 0.4 L Glucose 130 H POC Glucose Lactic Acid Calcium 6.5 L Phosphorus Magnesium Total Creatine Kinase Troponin T Total Protein Albumin Triglycerides LDL Cholesterol Direct HDL Cholesterol Arterial Blood Glucose Arterial Blood Ionized Calcium Urine pH Urine WBC (Auto) Vancomycin Trough Salicylates Acetaminophen Crossmatch 11/07/20 11/08/20 11/08/20 17:23 00:12 06:11 WBC RBC Hgb Hct MCV MCHC RDW Plt Count Lymph % (Auto) Seg Neutrophils % Seg Neuts % (Manual) Lymphocytes % (Manual) Nucleated RBC % Seg Neutrophils # Seg Neutrophils # Man Lymphocytes # (Manual) Monocytes # (Manual) ABG pH POC ABG pCO2 POC ABG pO2 ABG pO2 ABG HCO3 ABG O2 Saturation ABG Base Excess ABG Hemoglobin ABG Oxyhemoglobin ABG Potassium ABG Chloride ABG Glucose Oxyhemoglobin Carboxyhemoglobin Sodium Potassium Chloride Carbon Dioxide BUN Creatinine Glucose POC Glucose 115 H 129 H 109 H Lactic Acid Calcium Phosphorus Magnesium Total Creatine Kinase Troponin T Total Protein Albumin Triglycerides LDL Cholesterol Direct HDL Cholesterol Arterial Blood Glucose Arterial Blood Ionized Calcium Urine pH Urine WBC (Auto) Vancomycin Trough Salicylates Acetaminophen Crossmatch 11/08/20 11/08/20 11/08/20 17:36 23:49 23:58 WBC RBC Hgb Hct MCV MCHC RDW Plt Count Lymph % (Auto) Seg Neutrophils % Seg Neuts % (Manual) Lymphocytes % (Manual) Nucleated RBC % Seg Neutrophils # Seg Neutrophils # Man Lymphocytes # (Manual) Monocytes # (Manual) ABG pH POC ABG pCO2 POC ABG pO2 ABG pO2 ABG HCO3 ABG O2 Saturation ABG Base Excess ABG Hemoglobin ABG Oxyhemoglobin ABG Potassium ABG Chloride ABG Glucose Oxyhemoglobin Carboxyhemoglobin Sodium Potassium Chloride Carbon Dioxide BUN Creatinine Glucose 138 H POC Glucose 38 L 36 L Lactic Acid Calcium Phosphorus Magnesium Total Creatine Kinase Troponin T Total Protein Albumin Triglycerides LDL Cholesterol Direct HDL Cholesterol Arterial Blood Glucose Arterial Blood Ionized Calcium Urine pH Urine WBC (Auto) Vancomycin Trough Salicylates Acetaminophen Crossmatch 11/09/20 11/09/20 11/09/20 05:33 06:00 06:00 WBC 13.1 H RBC 2.35 L Hgb 7.6 L D Hct 22.9 L D MCV 97 H MCHC RDW 16.8 H Plt Count Lymph % (Auto) 9.1 L Seg Neutrophils % 84.8 H Seg Neuts % (Manual) Lymphocytes % (Manual) Nucleated RBC % Seg Neutrophils # 11.1 H Seg Neutrophils # Man Lymphocytes # (Manual) Monocytes # (Manual) ABG pH POC ABG pCO2 POC ABG pO2 ABG pO2 ABG HCO3 ABG O2 Saturation ABG Base Excess ABG Hemoglobin ABG Oxyhemoglobin ABG Potassium ABG Chloride ABG Glucose Oxyhemoglobin Carboxyhemoglobin Sodium 150 H Potassium 3.4 L D Chloride 119.2 H Carbon Dioxide BUN 30 H Creatinine 0.4 L Glucose 137 H POC Glucose 58 L Lactic Acid Calcium 7.2 L Phosphorus Magnesium Total Creatine Kinase Troponin T Total Protein Albumin Triglycerides LDL Cholesterol Direct HDL Cholesterol Arterial Blood Glucose Arterial Blood Ionized Calcium Urine pH Urine WBC (Auto) Vancomycin Trough Salicylates Acetaminophen Crossmatch 11/09/20 11/09/20 11/10/20 06:08 22:16 13:46 WBC 16.1 H RBC 2.52 L Hgb 8.1 L Hct 25.2 L MCV 100 H MCHC RDW 18.2 H Plt Count Lymph % (Auto) Seg Neutrophils % Seg Neuts % (Manual) 90.0 H Lymphocytes % (Manual) 3.0 L Nucleated RBC % Seg Neutrophils # Seg Neutrophils # Man 14.5 H Lymphocytes # (Manual) 0.5 L Monocytes # (Manual) 1.1 H ABG pH POC ABG pCO2 POC ABG pO2 ABG pO2 ABG HCO3 ABG O2 Saturation ABG Base Excess ABG Hemoglobin ABG Oxyhemoglobin ABG Potassium ABG Chloride ABG Glucose Oxyhemoglobin Carboxyhemoglobin Sodium Potassium Chloride Carbon Dioxide BUN Creatinine Glucose POC Glucose 122 H 120 H Lactic Acid Calcium Phosphorus Magnesium Total Creatine Kinase Troponin T Total Protein Albumin Triglycerides LDL Cholesterol Direct HDL Cholesterol Arterial Blood Glucose Arterial Blood Ionized Calcium Urine pH Urine WBC (Auto) Vancomycin Trough Salicylates Acetaminophen Crossmatch 11/10/20 11/10/20 13:46 15:59 WBC RBC Hgb Hct MCV MCHC RDW Plt Count Lymph % (Auto) Seg Neutrophils % Seg Neuts % (Manual) Lymphocytes % (Manual) Nucleated RBC % Seg Neutrophils # Seg Neutrophils # Man Lymphocytes # (Manual) Monocytes # (Manual) ABG pH POC ABG pCO2 POC ABG pO2 ABG pO2 ABG HCO3 ABG O2 Saturation ABG Base Excess ABG Hemoglobin ABG Oxyhemoglobin ABG Potassium ABG Chloride ABG Glucose Oxyhemoglobin Carboxyhemoglobin Sodium 153 H Potassium Chloride 120.6 H Carbon Dioxide BUN 27 H Creatinine 0.3 L Glucose 112 H POC Glucose 40 L Lactic Acid Calcium 6.8 L Phosphorus Magnesium Total Creatine Kinase Troponin T Total Protein Albumin Triglycerides LDL Cholesterol Direct HDL Cholesterol Arterial Blood Glucose Arterial Blood Ionized Calcium Urine pH Urine WBC (Auto) Vancomycin Trough Salicylates Acetaminophen Crossmatch Allied health notes reviewed: nursing
[2020-11-11] MEDS: ENOXAPARIN 40 MG/0.4 ML INJ SUB-Q SCH (12:01)
[2020-11-11] MEDS: cefTRIAXone/NS 2 GM/100 ML 2 GM/100 ML BAG IV SCH (13:20)
--- NOTE | 2020-11-11 13:46 | Progress Note ---
Assessment and Plan Pt was extubated on 11/08/2020 and tx to telemetry and then tx back to IMCU yesterday for AMS and respiratory distress, currently on Hi-[place] O2. tele reviewed - in SR. Cont present cardiac management, including PO amio 200mg daily and midodrine. No systemic AC at this time in regards to AFib in setting of anemia requiring PRBC tx, thrombocytopenia, sacral ulcer. Cont supportive management. Will follow. The patient has been seen in conjunction with Dr. Landa who agrees with the assessment and plan of care. - Patient Problems (1) AMS (altered mental status) Current Visit: Yes Status: Acute (2) Atrial fibrillation with RVR Current Visit: Yes Status: Acute Plan to address problem: --> SR (3) Acute respiratory failure Current Visit: Yes Status: Acute (4) Bilateral pneumonia Current Visit: Yes Status: Acute (5) Sepsis Current Visit: Yes Status: Acute (6) Sepsis associated hypotension Current Visit: Yes Status: Acute (7) Sacral decubitus ulcer, stage IV Current Visit: Yes Status: Acute (8) Bacteremia Current Visit: Yes Status: Acute (9) UTI (urinary tract infection) Current Visit: Yes Status: Acute (10) FAZAL (acute kidney injury) Current Visit: Yes Status: Acute (11) Hypomagnesemia Current Visit: Yes Status: Acute (12) Anemia Current Visit: Yes Status: Acute (13) Thrombocytopenia Current Visit: Yes Status: Acute (14) HIT (heparin-induced thrombocytopenia) Current Visit: Yes Status: Suspected Subjective Date of service: 11/11/20 Principal diagnosis: Acute Resp Fail, Septic Shock, Sacral Ulcer, AF with RVR Interval history: pt lethargic, on O2 via NC. tele reviewed - in SR HR 80s. Objective Last Vital Signs Temp 98 F 11/11/20 12:45 Pulse 84 11/11/20 12:00 Resp 11 L 11/11/20 12:00 BP 136/59 11/10/20 17:20 Pulse Ox 93 11/11/20 12:00 - Physical Examination General: Other (lethargic ) HEENT: Positive: Normocephaly Neck: Positive: neck supple, trachea midline Cardiac: Positive: Reg Rate and Rhythm, S1/S2 Lungs: Positive: Decreased Breath Sounds, Oxygen Neuro: Positive: Other (lethargic) Abdomen: Positive: Soft Skin: Positive: Wound. Negative: Rash Musculoskeletal: No Pain Extremities: Present: upper extr. pulses, lower extr. pulses, edema, Other (chronic skin changes noted) - Labs and Meds CBC 11/10/20 Range/Units 13:46 WBC 16.1 H (4.5-11.0) K/mm3 RBC 2.52 L (3.65-5.03) M/mm3 Hgb 8.1 L (11.8-15.2) gm/dl Hct 25.2 L (35.5-45.6) % Plt Count 247 (140-440) K/mm3 Comprehensive Metabolic Panel 11/10/20 Range/Units 13:46 Sodium 153 H (137-145) mmol/L Potassium 3.9 (3.6-5.0) mmol/L Chloride 120.6 H (98-107) mmol/L Carbon Dioxide 23 (22-30) mmol/L BUN 27 H (9-20) mg/dL Creatinine 0.3 L (0.8-1.3) mg/dL Glucose 112 H (75-100) mg/dL Calcium 6.8 L (8.4-10.2) mg/dL - Imaging and Cardiology EKG: report reviewed, image reviewed Echo: report reviewed (10/28/2020- EF 55-60%, no significant valvular abnormalities) - Telemetry EKG Rhythm: Sinus Rhythm - Allied health notes Allied health notes reviewed: nursing
--- NOTE | 2020-11-11 14:44 | Progress Note ---
Assessment and Plan Cultures: 10/26/2020 tracheal aspirate culture: MRSA 10/26/2020 blood culture: Proteus 10/27/2020 urine culture: Mixed hien A/P: 75-year-old male, halfway resident with seizure disorder, hypertension, depression, hyperlipidemia, chronic encephalopathy was sent to the hospital with worsening mental status: #Septic shock, Proteus bacteremia: Off pressors, leukocytosis better. multifactorial from infected sacral decubitus ulcer, bilateral pneumonia, UTI. Worsening leukocytosis with acute diarrhea 1L loose stool overnight ? C. difficile, leukocytosis improving today #Acute diarrhea: ? C. difficile, improved on vancomycin p.o. Diarrhea improved, Cdiff test was not able to be done. #Necrotic, infected sacral decubitus ulcer: underwent debridement 10/29/2020, als o noted to have brittle coccyx consistent with osteomyelitis. #UTI: UA with significant pyuria. #Bilateral pneumonia: Noted on CT. Possibly some aspiration. Sputum culture positive for MRSA. Received vancomycin IV for 7 days. #FAZAL: Renally dose antibiotics. #Acute respiratory failure: on the vent. Extubated #PVD: SFA occlusion. Not a candidate for revascularization per vascular Recs: -Monitor leukocytosis which is improving -Continue empiric vancomycin 125 mg p.o. 4 times daily D7 of 10 -continue Ceftriaxone + Flagyl x 14 days from debridement D13 of 14 (prolonged abx not of much benefit even though there is osteomyelitis, main stay will be offloading and wound care Eliezer Jack MD [facility], [place], [facility] ([facility]) O: [phone] F: [phone] Subjective Date of service: 11/11/20 Principal diagnosis: Acute Resp Fail, Septic Shock, Sacral Ulcer, AF with RVR Interval history: Afebrile, no acute change. Currently on high flow nasal cannula. Imaging personally reviewed: Chest x-ray: No change Objective - Exam Narrative Exam: General appearance: alert in NAD Eyes: anicteric sclerae, moist conjunctivae; no lid-lag; PERRLA HENT: Normocephalic, Atraumatic; normal external ears, nares open, oropharynx limited Neck: supple, tracheal midline, no JVD Lungs: Diminished breath sound bilaterally CV: RRR Abdomen: Soft, nontender Extremities: Bilateral upper extremity and lower extremity edema Skin: No rash. Extensive scrotal edema Psych: No agitated Neuro: Alert, open eyes, follows commands - Constitutional Vitals: Vital Signs Temp Pulse Resp BP Pulse Ox 98 F 84 11 L 136/59 93 11/11/20 12:45 11/11/20 12:00 11/11/20 12:00 11/10/20 17:20 11/11/20 12:00 Temperature -Last 24 Hours Temperature 98 F Temperature 97.7 F Temperature 98.8 F Temperature 97.6 F - Labs CBC & Chem 7: 11/10/20 13:46 11/10/20 13:46 Labs: Abnormal lab results 11/10/20 11/10/20 11/11/20 Range/Units 13:46 15:59 11:43 Seg Neuts % (Manual) 90.0 H (40.0-70.0) % Lymphocytes % (Manual) 3.0 L (13.4-35.0) % Seg Neutrophils # Man 14.5 H (1.8-7.7) K/mm3 Lymphocytes # (Manual) 0.5 L (1.2-5.4) K/mm3 Monocytes # (Manual) 1.1 H (0.0-0.8) K/mm3 POC Glucose 40 L 124 H (70-105) mg/dL
[2020-11-11 14:55] LABS: Hemoglobin 7.6 gm/dl (11.8-15.2); Mean Corpuscular HGB Conc 32 % (32-34); Mean Corpuscular Volume 99 fl (84-94); Platelet Count 287 K/mm3 (140-440); Red Blood Count 2.43 M/mm3 (3.65-5.03)
[2020-11-11] MEDS: ALBUTEROL 2.5 MG/3 ML NEBU IH SCH ×2 (15:03→21:00)
[2020-11-11 15:07] LABS: INR 1.18 (0.87-1.13)
[2020-11-11 15:15] LABS: Blood Urea Nitrogen 26 mg/dL (9-20); Calcium 7.3 mg/dL (8.4-10.2); Hemolysis Index 23
[2020-11-11 15:50] LABS: BUN/Creatinine Ratio 65
[2020-11-11] MEDS ORDERED: DEXTROSE 50% IN WATER (25GM) 50 ML SYRINGE IV ONE (18:40)
[2020-11-12] MEDS: VANCOMYCIN 250 MG/10 ML ORAL LIQD PO SCH ×4 (01:02→17:39)
[2020-11-12] MEDS: metroNIDAZOLE/NS 500 MG/100 ML 500 MG/100 ML BAG IV SCH ×2 (06:12→15:06)
[2020-11-12] MEDS: ACETAMINOPHEN 325 MG TAB PO PRN (06:13)
[2020-11-12] MEDS: ALBUTEROL 2.5 MG/3 ML NEBU IH SCH ×3 (08:27→20:21)
[2020-11-12 08:48] LABS: Hematocrit 23.7 % (35.5-45.6); Hemoglobin 7.5 gm/dl (11.8-15.2); Mean Corpuscular HGB Conc 32 % (32-34); Mean Corpuscular Volume 101 fl (84-94); Platelet Count 274 K/mm3 (140-440); Red Blood Count 2.35 M/mm3 (3.65-5.03); Red Cell Distribution Width 19.7 % (13.2-15.2)
[2020-11-12 09:11] LABS: Blood Urea Nitrogen 26 mg/dL (9-20); Calcium 7.3 mg/dL (8.4-10.2); Hemolysis Index 2
[2020-11-12 09:12] LABS: BUN/Creatinine Ratio 65
[2020-11-12] MEDS: AMIODARONE 200 MG TAB PO SCH (09:16)
[2020-11-12] MEDS: ENOXAPARIN 40 MG/0.4 ML INJ SUB-Q SCH (09:16)
[2020-11-12] MEDS: FAMOTIDINE 20 MG TAB PO SCH ×2 (09:17→21:45)
[2020-11-12] MEDS: MIDODRINE 5 MG TAB PO SCH ×3 (09:17→15:06)
[2020-11-12] MEDS: SODIUM HYPOCHLORITE, DAKIN'S 1/2 STRENGTH (0.25%) 473 ML TOPICAL SOLN TP SCH ×3 (09:18→21:44)
--- NOTE | 2020-11-12 10:14 | Progress Note ---
Assessment and Plan Pt was extubated on 11/08/2020 and tx to telemetry and then tx back to IMCU for AMS and respiratory distress, currently on Hi-[place] O2. tele reviewed - in SR. Cont present cardiac management, including PO amio 200mg daily and midodrine. No systemic AC at this time in regards to AFib in setting of anemia requiring PRBC tx, thrombocytopenia, sacral ulcer. Cont supportive management. Will follow. The patient has been seen in conjunction with Dr. Landa who agrees with the assessment and plan of care. - Patient Problems (1) AMS (altered mental status) Current Visit: Yes Status: Acute (2) Atrial fibrillation with RVR Current Visit: Yes Status: Acute (3) Acute respiratory failure Current Visit: Yes Status: Acute (4) Bilateral pneumonia Current Visit: Yes Status: Acute (5) Sepsis Current Visit: Yes Status: Acute (6) Sepsis associated hypotension Current Visit: Yes Status: Acute (7) Sacral decubitus ulcer, stage IV Current Visit: Yes Status: Acute (8) Bacteremia Current Visit: Yes Status: Acute (9) UTI (urinary tract infection) Current Visit: Yes Status: Acute (10) FAZAL (acute kidney injury) Current Visit: Yes Status: Acute (11) Hypomagnesemia Current Visit: Yes Status: Acute (12) Anemia Current Visit: Yes Status: Acute (13) Thrombocytopenia Current Visit: Yes Status: Acute (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 tele reviewed - in SR HR 80s. Objective Last Vital Signs Temp 98.2 F 11/12/20 00:00 Pulse 81 11/12/20 08:28 Resp 26 H 11/12/20 08:28 BP 136/59 11/10/20 17:20 Pulse Ox 93 11/12/20 08:00 - Physical Examination General: Other (lethargic ) HEENT: Positive: Normocephaly Neck: Positive: neck supple, trachea midline Cardiac: Positive: Reg Rate and Rhythm, S1/S2 Lungs: Positive: Decreased Breath Sounds, Oxygen Neuro: Positive: Other (lethargic) Abdomen: Positive: Soft Skin: Positive: Wound. Negative: Rash Musculoskeletal: No Pain Extremities: Present: upper extr. pulses, lower extr. pulses, edema, Other (chronic skin changes noted) - Labs and Meds Coagulation 11/11/20 Range/Units 14:38 PT 15.0 H (12.2-14.9) Sec. INR 1.18 H (0.87-1.13) CBC 11/11/20 11/12/20 Range/Units 14:38 08:33 WBC 13.8 H 13.4 H (4.5-11.0) K/mm3 RBC 2.43 L 2.35 L (3.65-5.03) M/mm3 Hgb 7.6 L 7.5 L (11.8-15.2) gm/dl Hct 24.0 L 23.7 L (35.5-45.6) % Plt Count 287 274 (140-440) K/mm3 Comprehensive Metabolic Panel 11/11/20 11/12/20 Range/Units 14:38 08:33 Sodium 154 H 154 H (137-145) mmol/L Potassium 3.1 L D 2.9 L* (3.6-5.0) mmol/L Chloride 122.1 H 121.4 H (98-107) mmol/L Carbon Dioxide 23 25 (22-30) mmol/L BUN 26 H 26 H (9-20) mg/dL Creatinine 0.4 L 0.4 L (0.8-1.3) mg/dL Glucose 140 H 153 H (75-100) mg/dL Calcium 7.3 L 7.3 L (8.4-10.2) mg/dL - Imaging and Cardiology EKG: report reviewed, image reviewed Echo: report reviewed (10/28/2020- EF 55-60%, no significant valvular abnormalities) - Allied health notes Allied health notes reviewed: nursing
--- NOTE | 2020-11-12 12:50 | XRay Report ---
CHEST - 1 VIEW 1145 hours INDICATION: right lung collapse COMPARISON: Yesterday FINDINGS: Support devices: Stable support device positioning. Heart: Stable cardiomediastinal silhouette. Lungs/pleura: Persistent opacification of the right hemithorax is demonstrated. This appears to be s econdary to complete right lung atelectasis. Patchy infiltrate throughout the left lung and small lef t pleural effusion are stable. No pneumothorax. Additional findings: None. IMPRESSION: No significant interval change. Signer Name: David Gardner Jr, MD Signed: 11/12/2020 12:00 PM Workstation Name: [id number]
[2020-11-12] MEDS: POTASSIUM CHLORIDE 10 MEQ 10 MEQ/100 ML BAG IV SCH ×4 (13:32→19:28)
[2020-11-12] MEDS ORDERED: fentaNYL 100 MCG/2 ML INJ IV SCH (14:00)
[2020-11-12] MEDS ORDERED: MIDAZOLAM 2 MG/2 ML INJ IV SCH (14:00)
[2020-11-12] MEDS ORDERED: MIDAZOLAM 2 MG/2 ML INJ ONE (14:07)
--- NOTE | 2020-11-12 14:08 | Progress Note ---
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 168 H Lactic Acid Calcium Phosphorus Magnesium Total Creatine Kinase Troponin T Total Protein Albumin Triglycerides LDL Cholesterol Direct HDL Cholesterol Arterial Blood Glucose Arterial Blood Ionized Calcium Urine pH Urine WBC (Auto) Vancomycin Trough Salicylates Acetaminophen Crossmatch 11/02/20 11/02/20 11/02/20 06:29 08:40 08:40 WBC 16.6 H RBC 2.87 L Hgb 8.8 L Hct 26.6 L MCV MCHC RDW 15.8 H Plt Count 30 L Lymph % (Auto) Seg Neutrophils % Seg Neuts % (Manual) 97.0 H Lymphocytes % (Manual) 2.0 L Nucleated RBC % 1.0 H Seg Neutrophils # Seg Neutrophils # Man 16.1 H Lymphocytes # (Manual) 0.3 L Monocytes # (Manual) PT INR ABG pH POC ABG pCO2 POC ABG pO2 ABG pO2 ABG HCO3 ABG O2 Saturation ABG Base Excess ABG Hemoglobin ABG Oxyhemoglobin ABG Potassium ABG Chloride ABG Glucose Oxyhemoglobin Carboxyhemoglobin Sodium Potassium 2.4 L* D Chloride 110.2 H Carbon Dioxide BUN 23 H Creatinine 0.4 L Glucose 154 H POC Glucose 131 H Lactic Acid Calcium 6.1 L Phosphorus Magnesium 1.50 L Total Creatine Kinase Troponin T Total Protein Albumin Triglycerides LDL Cholesterol Direct HDL Cholesterol Arterial Blood Glucose Arterial Blood Ionized Calcium Urine pH Urine WBC (Auto) Vancomycin Trough Salicylates Acetaminophen Crossmatch 11/02/20 11/02/20 11/02/20 13:17 17:25 18:05 WBC RBC Hgb Hct MCV MCHC RDW Plt Count Lymph % (Auto) Seg Neutrophils % Seg Neuts % (Manual) Lymphocytes % (Manual) Nucleated RBC % Seg Neutrophils # Seg Neutrophils # Man Lymphocytes # (Manual) Monocytes # (Manual) PT INR ABG pH POC ABG pCO2 POC ABG pO2 ABG pO2 ABG HCO3 ABG O2 Saturation ABG Base Excess ABG Hemoglobin ABG Oxyhemoglobin ABG Potassium ABG Chloride ABG Glucose Oxyhemoglobin Carboxyhemoglobin Sodium Potassium 3.1 L D Chloride Carbon Dioxide BUN Creatinine Glucose POC Glucose 134 H 140 H Lactic Acid Calcium Phosphorus Magnesium Total Creatine Kinase Troponin T Total Protein Albumin Triglycerides LDL Cholesterol Direct HDL Cholesterol Arterial Blood Glucose Arterial Blood Ionized Calcium Urine pH Urine WBC (Auto) Vancomycin Trough Salicylates Acetaminophen Crossmatch 11/02/20 11/03/20 11/03/20 23:36 04:15 05:07 WBC RBC Hgb Hct MCV MCHC RDW Plt Count Lymph % (Auto) Seg Neutrophils % Seg Neuts % (Manual) Lymphocytes % (Manual) Nucleated RBC % Seg Neutrophils # Seg Neutrophils # Man Lymphocytes # (Manual) Monocytes # (Manual) PT INR ABG pH POC ABG pCO2 POC ABG pO2 ABG pO2 ABG HCO3 ABG O2 Saturation ABG Base Excess ABG Hemoglobin ABG Oxyhemoglobin ABG Potassium ABG Chloride ABG Glucose Oxyhemoglobin Carboxyhemoglobin Sodium Potassium 3.0 L Chloride 111.8 H Carbon Dioxide BUN 24 H Creatinine 0.3 L Glucose 141 H POC Glucose 127 H 156 H Lactic Acid Calcium 5.8 L* Phosphorus Magnesium 1.60 L Total Creatine Kinase Troponin T Total Protein Albumin Triglycerides LDL Cholesterol Direct HDL Cholesterol Arterial Blood Glucose Arterial Blood Ionized Calcium Urine pH Urine WBC (Auto) Vancomycin Trough Salicylates Acetaminophen Crossmatch 0411/03/20 11/04/20 11:14 17:31 00:17 WBC RBC Hgb Hct MCV MCHC RDW Plt Count Lymph % (Auto) Seg Neutrophils % Seg Neuts % (Manual) Lymphocytes % (Manual) Nucleated RBC % Seg Neutrophils # Seg Neutrophils # Man Lymphocytes # (Manual) Monocytes # (Manual) PT INR ABG pH POC ABG pCO2 POC ABG pO2 ABG pO2 ABG HCO3 ABG O2 Saturation ABG Base Excess ABG Hemoglobin ABG Oxyhemoglobin ABG Potassium ABG Chloride ABG Glucose Oxyhemoglobin Carboxyhemoglobin Sodium Potassium Chloride Carbon Dioxide BUN Creatinine Glucose POC Glucose 137 H 151 H 156 H Lactic Acid Calcium Phosphorus Magnesium Total Creatine Kinase Troponin T Total Protein Albumin Triglycerides LDL Cholesterol Direct HDL Cholesterol Arterial Blood Glucose Arterial Blood Ionized Calcium Urine pH Urine WBC (Auto) Vancomycin Trough Salicylates Acetaminophen Crossmatch 11/04/20 11/04/20 11/04/20 05:34 05:34 11:16 WBC 21.9 H RBC 2.67 L Hgb 8.2 L Hct 24.8 L MCV MCHC RDW 15.6 H Plt Count 48 L Lymph % (Auto) Seg Neutrophils % Seg Neuts % (Manual) Lymphocytes % (Manual) Nucleated RBC % Seg Neutrophils # Seg Neutrophils # Man Lymphocytes # (Manual) Monocytes # (Manual) PT INR ABG pH POC ABG pCO2 POC ABG pO2 ABG pO2 ABG HCO3 ABG O2 Saturation ABG Base Excess ABG Hemoglobin ABG Oxyhemoglobin ABG Potassium ABG Chloride ABG Glucose Oxyhemoglobin Carboxyhemoglobin Sodium 146 H Potassium Chloride 114.6 H Carbon Dioxide BUN 29 H Creatinine 0.3 L Glucose 173 H POC Glucose 156 H Lactic Acid Calcium 5.7 L* Phosphorus Magnesium Total Creatine Kinase Troponin T Total Protein Albumin Triglycerides LDL Cholesterol Direct HDL Cholesterol Arterial Blood Glucose Arterial Blood Ionized Calcium Urine pH Urine WBC (Auto) Vancomycin Trough Salicylates Acetaminophen Crossmatch 11/04/20 11/04/20 11/04/20 11:42 17:18 23:12 WBC RBC Hgb Hct MCV MCHC RDW Plt Count Lymph % (Auto) Seg Neutrophils % Seg Neuts % (Manual) Lymphocytes % (Manual) Nucleated RBC % Seg Neutrophils # Seg Neutrophils # Man Lymphocytes # (Manual) Monocytes # (Manual) PT INR ABG pH 7.525 H POC ABG pCO2 28.9 L POC ABG pO2 64.3 L ABG pO2 ABG HCO3 ABG O2 Saturation ABG Base Excess ABG Hemoglobin 8.2 L ABG Oxyhemoglobin ABG Potassium 3.3 L ABG Chloride 115.0 H ABG Glucose 165 H Oxyhemoglobin Carboxyhemoglobin Sodium Potassium Chloride Carbon Dioxide BUN Creatinine Glucose POC Glucose 144 H 155 H Lactic Acid Calcium Phosphorus Magnesium Total Creatine Kinase Troponin T Total Protein Albumin Triglycerides LDL Cholesterol Direct HDL Cholesterol Arterial Blood Glucose 165 H Arterial Blood Ionized Calcium 4.0 L Urine pH Urine WBC (Auto) Vancomycin Trough Salicylates Acetaminophen Crossmatch 11/05/20 11/05/20 11/05/20 04:48 04:48 05:57 WBC 17.4 H RBC 2.49 L Hgb 7.8 L Hct 23.5 L MCV MCHC RDW 16.0 H Plt Count 69 L Lymph % (Auto) Seg Neutrophils % Seg Neuts % (Manual) Lymphocytes % (Manual) Nucleated RBC % Seg Neutrophils # Seg Neutrophils # Man Lymphocytes # (Manual) Monocytes # (Manual) PT INR ABG pH POC ABG pCO2 POC ABG pO2 ABG pO2 ABG HCO3 ABG O2 Saturation ABG Base Excess ABG Hemoglobin ABG Oxyhemoglobin ABG Potassium ABG Chloride ABG Glucose Oxyhemoglobin Carboxyhemoglobin Sodium 147 H Potassium 3.5 L Chloride 115.4 H Carbon Dioxide BUN 34 H Creatinine 0.3 L Glucose 154 H POC Glucose 146 H Lactic Acid Calcium 6.1 L Phosphorus 2.00 L Magnesium Total Creatine Kinase Troponin T Total Protein Albumin Triglycerides LDL Cholesterol Direct HDL Cholesterol Arterial Blood Glucose Arterial Blood Ionized Calcium Urine pH Urine WBC (Auto) Vancomycin Trough Salicylates Acetaminophen Crossmatch 11/05/20 11/05/20 11/05/20 11:33 17:52 23:37 WBC RBC Hgb Hct MCV MCHC RDW Plt Count Lymph % (Auto) Seg Neutrophils % Seg Neuts % (Manual) Lymphocytes % (Manual) Nucleated RBC % Seg Neutrophils # Seg Neutrophils # Man Lymphocytes # (Manual) Monocytes # (Manual) PT INR ABG pH POC ABG pCO2 POC ABG pO2 ABG pO2 ABG HCO3 ABG O2 Saturation ABG Base Excess ABG Hemoglobin ABG Oxyhemoglobin ABG Potassium ABG Chloride ABG Glucose Oxyhemoglobin Carboxyhemoglobin Sodium Potassium Chloride Carbon Dioxide BUN Creatinine Glucose POC Glucose 144 H 136 H 151 H Lactic Acid Calcium Phosphorus Magnesium Total Creatine Kinase Troponin T Total Protein Albumin Triglycerides LDL Cholesterol Direct HDL Cholesterol Arterial Blood Glucose Arterial Blood Ionized Calcium Urine pH Urine WBC (Auto) Vancomycin Trough Salicylates Acetaminophen Crossmatch 11/06/20 11/06/20 11/06/20 05:36 06:45 06:45 WBC 15.0 H RBC 2.33 L Hgb 7.2 L Hct 22.1 L MCV 95 H MCHC RDW 16.2 H Plt Count 103 L Lymph % (Auto) Seg Neutrophils % Seg Neuts % (Manual) Lymphocytes % (Manual) Nucleated RBC % Seg Neutrophils # Seg Neutrophils # Man Lymphocytes # (Manual) Monocytes # (Manual) PT INR ABG pH POC ABG pCO2 POC ABG pO2 ABG pO2 ABG HCO3 ABG O2 Saturation ABG Base Excess ABG Hemoglobin ABG Oxyhemoglobin ABG Potassium ABG Chloride ABG Glucose Oxyhemoglobin Carboxyhemoglobin Sodium 148 H Potassium Chloride 118.2 H Carbon Dioxide BUN 32 H Creatinine 0.4 L Glucose 153 H POC Glucose 140 H Lactic Acid Calcium 6.4 L Phosphorus 0.90 L* D Magnesium Total Creatine Kinase Troponin T Total Protein 5.0 L Albumin 1.4 L Triglycerides LDL Cholesterol Direct HDL Cholesterol Arterial Blood Glucose Arterial Blood Ionized Calcium Urine pH Urine WBC (Auto) Vancomycin Trough Salicylates Acetaminophen Crossmatch 11/06/20 11/06/20 11/06/20 11:32 17:37 23:19 WBC RBC Hgb Hct MCV MCHC RDW Plt Count Lymph % (Auto) Seg Neutrophils % Seg Neuts % (Manual) Lymphocytes % (Manual) Nucleated RBC % Seg Neutrophils # Seg Neutrophils # Man Lymphocytes # (Manual) Monocytes # (Manual) PT INR ABG pH POC ABG pCO2 POC ABG pO2 ABG pO2 ABG HCO3 ABG O2 Saturation ABG Base Excess ABG Hemoglobin ABG Oxyhemoglobin ABG Potassium ABG Chloride ABG Glucose Oxyhemoglobin Carboxyhemoglobin Sodium Potassium Chloride Carbon Dioxide BUN Creatinine Glucose POC Glucose 132 H 133 H 145 H Lactic Acid Calcium Phosphorus Magnesium Total Creatine Kinase Troponin T Total Protein Albumin Triglycerides LDL Cholesterol Direct HDL Cholesterol Arterial Blood Glucose Arterial Blood Ionized Calcium Urine pH Urine WBC (Auto) Vancomycin Trough Salicylates Acetaminophen Crossmatch 11/07/20 11/07/20 11/07/20 12:55 16:45 16:45 WBC 12.0 H RBC 3.63 L Hgb 11.4 L D Hct MCV 104 H MCHC 30 L RDW 18.0 H Plt Count 133 L Lymph % (Auto) Seg Neutrophils % Seg Neuts % (Manual) Lymphocytes % (Manual) Nucleated RBC % Seg Neutrophils # Seg Neutrophils # Man Lymphocytes # (Manual) Monocytes # (Manual) PT INR ABG pH POC ABG pCO2 POC ABG pO2 ABG pO2 ABG HCO3 ABG O2 Saturation ABG Base Excess ABG Hemoglobin 7.7 L ABG Oxyhemoglobin ABG Potassium ABG Chloride ABG Glucose Oxyhemoglobin 94.9 L Carboxyhemoglobin Sodium 149 H Potassium Chloride 119.8 H Carbon Dioxide BUN 31 H Creatinine 0.4 L Glucose 130 H POC Glucose Lactic Acid Calcium 6.5 L Phosphorus Magnesium Total Creatine Kinase Troponin T Total Protein Albumin Triglycerides LDL Cholesterol Direct HDL Cholesterol Arterial Blood Glucose Arterial Blood Ionized Calcium Urine pH Urine WBC (Auto) Vancomycin Trough Salicylates Acetaminophen Crossmatch 11/07/20 11/08/20 11/08/20 17:23 00:12 06:11 WBC RBC Hgb Hct MCV MCHC RDW Plt Count Lymph % (Auto) Seg Neutrophils % Seg Neuts % (Manual) Lymphocytes % (Manual) Nucleated RBC % Seg Neutrophils # Seg Neutrophils # Man Lymphocytes # (Manual) Monocytes # (Manual) PT INR ABG pH POC ABG pCO2 POC ABG pO2 ABG pO2 ABG HCO3 ABG O2 Saturation ABG Base Excess ABG Hemoglobin ABG Oxyhemoglobin ABG Potassium ABG Chloride ABG Glucose Oxyhemoglobin Carboxyhemoglobin Sodium Potassium Chloride Carbon Dioxide BUN Creatinine Glucose POC Glucose 115 H 129 H 109 H Lactic Acid Calcium Phosphorus Magnesium Total Creatine Kinase Troponin T Total Protein Albumin Triglycerides LDL Cholesterol Direct HDL Cholesterol Arterial Blood Glucose Arterial Blood Ionized Calcium Urine pH Urine WBC (Auto) Vancomycin Trough Salicylates Acetaminophen Crossmatch 11/08/20 11/08/20 11/08/20 17:36 23:49 23:58 WBC RBC Hgb Hct MCV MCHC RDW Plt Count Lymph % (Auto) Seg Neutrophils % Seg Neuts % (Manual) Lymphocytes % (Manual) Nucleated RBC % Seg Neutrophils # Seg Neutrophils # Man Lymphocytes # (Manual) Monocytes # (Manual) PT INR ABG pH POC ABG pCO2 POC ABG pO2 ABG pO2 ABG HCO3 ABG O2 Saturation ABG Base Excess ABG Hemoglobin ABG Oxyhemoglobin ABG Potassium ABG Chloride ABG Glucose Oxyhemoglobin Carboxyhemoglobin Sodium Potassium Chloride Carbon Dioxide BUN Creatinine Glucose 138 H POC Glucose 38 L 36 L Lactic Acid Calcium Phosphorus Magnesium Total Creatine Kinase Troponin T Total Protein Albumin Triglycerides LDL Cholesterol Direct HDL Cholesterol Arterial Blood Glucose Arterial Blood Ionized Calcium Urine pH Urine WBC (Auto) Vancomycin Trough Salicylates Acetaminophen Crossmatch 11/09/20 11/09/20 11/09/20 05:33 06:00 06:00 WBC 13.1 H RBC 2.35 L Hgb 7.6 L D Hct 22.9 L D MCV 97 H MCHC RDW 16.8 H Plt Count Lymph % (Auto) 9.1 L Seg Neutrophils % 84.8 H Seg Neuts % (Manual) Lymphocytes % (Manual) Nucleated RBC % Seg Neutrophils # 11.1 H Seg Neutrophils # Man Lymphocytes # (Manual) Monocytes # (Manual) PT INR ABG pH POC ABG pCO2 POC ABG pO2 ABG pO2 ABG HCO3 ABG O2 Saturation ABG Base Excess ABG Hemoglobin ABG Oxyhemoglobin ABG Potassium ABG Chloride ABG Glucose Oxyhemoglobin Carboxyhemoglobin Sodium 150 H Potassium 3.4 L D Chloride 119.2 H Carbon Dioxide BUN 30 H Creatinine 0.4 L Glucose 137 H POC Glucose 58 L Lactic Acid Calcium 7.2 L Phosphorus Magnesium Total Creatine Kinase Troponin T Total Protein Albumin Triglycerides LDL Cholesterol Direct HDL Cholesterol Arterial Blood Glucose Arterial Blood Ionized Calcium Urine pH Urine WBC (Auto) Vancomycin Trough Salicylates Acetaminophen Crossmatch 11/09/20 11/09/20 11/10/20 06:08 22:16 13:46 WBC 16.1 H RBC 2.52 L Hgb 8.1 L Hct 25.2 L MCV 100 H MCHC RDW 18.2 H Plt Count Lymph % (Auto) Seg Neutrophils % Seg Neuts % (Manual) 90.0 H Lymphocytes % (Manual) 3.0 L Nucleated RBC % Seg Neutrophils # Seg Neutrophils # Man 14.5 H Lymphocytes # (Manual) 0.5 L Monocytes # (Manual) 1.1 H PT INR ABG pH POC ABG pCO2 POC ABG pO2 ABG pO2 ABG HCO3 ABG O2 Saturation ABG Base Excess ABG Hemoglobin ABG Oxyhemoglobin ABG Potassium ABG Chloride ABG Glucose Oxyhemoglobin Carboxyhemoglobin Sodium Potassium Chloride Carbon Dioxide BUN Creatinine Glucose POC Glucose 122 H 120 H Lactic Acid Calcium Phosphorus Magnesium Total Creatine Kinase Troponin T Total Protein Albumin Triglycerides LDL Cholesterol Direct HDL Cholesterol Arterial Blood Glucose Arterial Blood Ionized Calcium Urine pH Urine WBC (Auto) Vancomycin Trough Salicylates Acetaminophen Crossmatch 11/10/20 11/10/20 11/11/20 13:46 15:59 11:43 WBC RBC Hgb Hct MCV MCHC RDW Plt Count Lymph % (Auto) Seg Neutrophils % Seg Neuts % (Manual) Lymphocytes % (Manual) Nucleated RBC % Seg Neutrophils # Seg Neutrophils # Man Lymphocytes # (Manual) Monocytes # (Manual) PT INR ABG pH POC ABG pCO2 POC ABG pO2 ABG pO2 ABG HCO3 ABG O2 Saturation ABG Base Excess ABG Hemoglobin ABG Oxyhemoglobin ABG Potassium ABG Chloride ABG Glucose Oxyhemoglobin Carboxyhemoglobin Sodium 153 H Potassium Chloride 120.6 H Carbon Dioxide BUN 27 H Creatinine 0.3 L Glucose 112 H POC Glucose 40 L 124 H Lactic Acid Calcium 6.8 L Phosphorus Magnesium Total Creatine Kinase Troponin T Total Protein Albumin Triglycerides LDL Cholesterol Direct HDL Cholesterol Arterial Blood Glucose Arterial Blood Ionized Calcium Urine pH Urine WBC (Auto) Vancomycin Trough Salicylates Acetaminophen Crossmatch 11/11/20 11/11/20 11/11/20 14:38 14:38 14:38 WBC 13.8 H RBC 2.43 L Hgb 7.6 L Hct 24.0 L MCV 99 H MCHC RDW 18.0 H Plt Count Lymph % (Auto) Seg Neutrophils % Seg Neuts % (Manual) Lymphocytes % (Manual) Nucleated RBC % Seg Neutrophils # Seg Neutrophils # Man Lymphocytes # (Manual) Monocytes # (Manual) PT 15.0 H INR 1.18 H ABG pH POC ABG pCO2 POC ABG pO2 ABG pO2 ABG HCO3 ABG O2 Saturation ABG Base Excess ABG Hemoglobin ABG Oxyhemoglobin ABG Potassium ABG Chloride ABG Glucose Oxyhemoglobin Carboxyhemoglobin Sodium 154 H Potassium 3.1 L D Chloride 122.1 H Carbon Dioxide BUN 26 H Creatinine 0.4 L Glucose 140 H POC Glucose Lactic Acid Calcium 7.3 L Phosphorus Magnesium Total Creatine Kinase Troponin T Total Protein Albumin Triglycerides LDL Cholesterol Direct HDL Cholesterol Arterial Blood Glucose Arterial Blood Ionized Calcium Urine pH Urine WBC (Auto) Vancomycin Trough Salicylates Acetaminophen Crossmatch 11/11/20 11/11/20 11/12/20 18:39 18:42 00:03 WBC RBC Hgb Hct MCV MCHC RDW Plt Count Lymph % (Auto) Seg Neutrophils % Seg Neuts % (Manual) Lymphocytes % (Manual) Nucleated RBC % Seg Neutrophils # Seg Neutrophils # Man Lymphocytes # (Manual) Monocytes # (Manual) PT INR ABG pH POC ABG pCO2 POC ABG pO2 ABG pO2 ABG HCO3 ABG O2 Saturation ABG Base Excess ABG Hemoglobin ABG Oxyhemoglobin ABG Potassium ABG Chloride ABG Glucose Oxyhemoglobin Carboxyhemoglobin Sodium Potassium Chloride Carbon Dioxide BUN Creatinine Glucose POC Glucose 45 L 66 L 108 H Lactic Acid Calcium Phosphorus Magnesium Total Creatine Kinase Troponin T Total Protein Albumin Triglycerides LDL Cholesterol Direct HDL Cholesterol Arterial Blood Glucose Arterial Blood Ionized Calcium Urine pH Urine WBC (Auto) Vancomycin Trough Salicylates Acetaminophen Crossmatch 11/12/20 11/12/20 11/12/20 05:44 08:33 08:33 WBC 13.4 H RBC 2.35 L Hgb 7.5 L Hct 23.7 L MCV 101 H MCHC RDW 19.7 H Plt Count Lymph % (Auto) Seg Neutrophils % Seg Neuts % (Manual) Lymphocytes % (Manual) Nucleated RBC % Seg Neutrophils # Seg Neutrophils # Man Lymphocytes # (Manual) Monocytes # (Manual) PT INR ABG pH POC ABG pCO2 POC ABG pO2 ABG pO2 ABG HCO3 ABG O2 Saturation ABG Base Excess ABG Hemoglobin ABG Oxyhemoglobin ABG Potassium ABG Chloride ABG Glucose Oxyhemoglobin Carboxyhemoglobin Sodium 154 H Potassium 2.9 L* Chloride 121.4 H Carbon Dioxide BUN 26 H Creatinine 0.4 L Glucose 153 H POC Glucose 114 H Lactic Acid Calcium 7.3 L Phosphorus Magnesium Total Creatine Kinase Troponin T Total Protein Albumin Triglycerides LDL Cholesterol Direct HDL Cholesterol Arterial Blood Glucose Arterial Blood Ionized Calcium Urine pH Urine WBC (Auto) Vancomycin Trough Salicylates Acetaminophen Crossmatch 11/12/20 11:38 WBC RBC Hgb Hct MCV MCHC RDW Plt Count Lymph % (Auto) Seg Neutrophils % Seg Neuts % (Manual) Lymphocytes % (Manual) Nucleated RBC % Seg Neutrophils # Seg Neutrophils # Man Lymphocytes # (Manual) Monocytes # (Manual) PT INR ABG pH POC ABG pCO2 POC ABG pO2 ABG pO2 ABG HCO3 ABG O2 Saturation ABG Base Excess ABG Hemoglobin ABG Oxyhemoglobin ABG Potassium ABG Chloride ABG Glucose Oxyhemoglobin Carboxyhemoglobin Sodium Potassium Chloride Carbon Dioxide BUN Creatinine Glucose POC Glucose 125 H Lactic Acid Calcium Phosphorus Magnesium Total Creatine Kinase Troponin T Total Protein Albumin Triglycerides LDL Cholesterol Direct HDL Cholesterol Arterial Blood Glucose Arterial Blood Ionized Calcium Urine pH Urine WBC (Auto) Vancomycin Trough Salicylates Acetaminophen Crossmatch Allied health notes reviewed: nursing
[2020-11-12] MEDS ORDERED: SODIUM CHLORIDE 0.9% 500 ML 500 ML ONE (14:12)
[2020-11-12] MEDS ORDERED: WATER FOR IRRIG STERILE 1,000 ML BOTTLE ONE (14:29)
[2020-11-12] MEDS ORDERED: WATER FOR IRRIG STERILE 250 ML BOTTLE IR ONE (14:29)
--- NOTE | 2020-11-12 15:04 | Progress Note ---
Assessment and Plan Cultures: 10/26/2020 tracheal aspirate culture: MRSA 10/26/2020 blood culture: Proteus 10/27/2020 urine culture: Mixed hien A/P: 75-year-old male, assisted resident with seizure disorder, hypertension, depression, hyperlipidemia, chronic encephalopathy was sent to the hospital with worsening mental status: #Septic shock, Proteus bacteremia: Off pressors, leukocytosis better. multifactorial from infected sacral decubitus ulcer, bilateral pneumonia, UTI. Worsening leukocytosis with acute diarrhea 1L loose stool overnight ? C. difficile, leukocytosis improving today #Acute diarrhea: ? C. difficile, improved on vancomycin p.o. Diarrhea improved, Cdiff test was not able to be done. #Necrotic, infected sacral decubitus ulcer: underwent debridement 10/29/2020, als o noted to have brittle coccyx consistent with osteomyelitis. #UTI: UA with significant pyuria. #Bilateral pneumonia: Noted on CT. Possibly some aspiration. Sputum culture positive for MRSA. Received vancomycin IV for 7 days. #FAZAL: Renally dose antibiotics. #Acute respiratory failure: on the vent. Extubated #PVD: SFA occlusion. Not a candidate for revascularization per vascular Recs: -Monitor leukocytosis which is improving/stable -Continue empiric vancomycin 125 mg p.o. 4 times daily D8 of 10 -continue Ceftriaxone + Flagyl x 14 days from debridement D14 of 14 (prolonged abx not of much benefit even though there is osteomyelitis, main stay will be offloading and wound care Eliezer Jack MD [facility] O: [phone] F: [phone] Subjective Date of service: 11/12/20 Principal diagnosis: Acute Resp Fail, Septic Shock, Sacral Ulcer, AF with RVR Interval history: Afebrile, white count stably elevated at 13.4. Remains on high flow nasal cannula. Objective - Exam Narrative Exam: General appearance: alert in NAD Eyes: anicteric sclerae, moist conjunctivae; no lid-lag; PERRLA HENT: Normocephalic, Atraumatic; normal external ears, nares open, oropharynx limited Neck: supple, tracheal midline, no JVD Lungs: Diminished breath sound bilaterally CV: RRR Abdomen: Soft, nontender Extremities: Bilateral upper extremity and lower extremity edema Skin: No rash. Extensive scrotal edema Psych: No agitated Neuro: Alert, open eyes, follows commands - Constitutional Vitals: Vital Signs Temp Pulse Resp BP Pulse Ox 98.0 F 96 H 22 136/59 93 11/12/20 12:00 11/12/20 13:06 11/12/20 13:06 11/10/20 17:20 11/12/20 08:00 Temperature -Last 24 Hours Temperature 98.0 F Temperature 97.4 F Temperature 98.2 F Temperature 98.6 F - Labs CBC & Chem 7: 11/12/20 08:33 11/12/20 08:33 Labs: Abnormal lab results 11/11/20 11/11/20 11/11/20 Range/Units 14:38 14:38 18:39 WBC (4.5-11.0) K/mm3 RBC (3.65-5.03) M/mm3 Hgb (11.8-15.2) gm/dl Hct (35.5-45.6) % MCV (84-94) fl RDW (13.2-15.2) % PT 15.0 H (12.2-14.9) Sec. INR 1.18 H (0.87-1.13) Sodium 154 H (137-145) mmol/L Potassium 3.1 L D (3.6-5.0) mmol/L Chloride 122.1 H (98-107) mmol/L BUN 26 H (9-20) mg/dL Creatinine 0.4 L (0.8-1.3) mg/dL Glucose 140 H (75-100) mg/dL POC Glucose 45 L (70-105) mg/dL Calcium 7.3 L (8.4-10.2) mg/dL 11/11/20 11/12/20 11/12/20 Range/Units 18:42 00:03 05:44 WBC (4.5-11.0) K/mm3 RBC (3.65-5.03) M/mm3 Hgb (11.8-15.2) gm/dl Hct (35.5-45.6) % MCV (84-94) fl RDW (13.2-15.2) % PT (12.2-14.9) Sec. INR (0.87-1.13) Sodium (137-145) mmol/L Potassium (3.6-5.0) mmol/L Chloride (98-107) mmol/L BUN (9-20) mg/dL Creatinine (0.8-1.3) mg/dL Glucose (75-100) mg/dL POC Glucose 66 L 108 H 114 H (70-105) mg/dL Calcium (8.4-10.2) mg/dL 11/12/20 11/12/20 11/12/20 Range/Units 08:33 08:33 11:38 WBC 13.4 H (4.5-11.0) K/mm3 RBC 2.35 L (3.65-5.03) M/mm3 Hgb 7.5 L (11.8-15.2) gm/dl Hct 23.7 L (35.5-45.6) % MCV 101 H (84-94) fl RDW 19.7 H (13.2-15.2) % PT (12.2-14.9) Sec. INR (0.87-1.13) Sodium 154 H (137-145) mmol/L Potassium 2.9 L* (3.6-5.0) mmol/L Chloride 121.4 H (98-107) mmol/L BUN 26 H (9-20) mg/dL Creatinine 0.4 L (0.8-1.3) mg/dL Glucose 153 H (75-100) mg/dL POC Glucose 125 H (70-105) mg/dL Calcium 7.3 L (8.4-10.2) mg/dL
[2020-11-12] MEDS: cefTRIAXone/NS 2 GM/100 ML 2 GM/100 ML BAG IV SCH (15:06)
--- NOTE | 2020-11-12 15:06 | Procedure Note ---
Date of procedure: 11/12/20 Pre-op diagnosis: Mucous Plug Post-op diagnosis: same Procedure: Patient prepped and placed upright to help maintain sats. Versed 1 and Fent 50 given. Good sedation achieved. Scope passed through mouth with biteblock in place without difficulty. Once in Trachea large amounts of thick white secretions visualized with complete obstruction of right mainstem bronchus with some mucous on left as well. All mucous removed using saline and suction through working channel of scope. Patient tolerated procedure well with no immediate complications. Will obtain post bronch CXR. Anesthesia: other (conscious sedation) Surgeon: SHRUTHI VILLAGOMEZ Estimated blood loss: none Pathology: none Condition: stable Disposition: PACU
--- NOTE | 2020-11-12 15:58 | XRay Report ---
CHEST 1 VIEW 1531 hours INDICATION: Post bronch mucous removal. COMPARISON: Earlier today at 1145 hours FINDINGS: Support devices: Stable positioning of the nasogastric tube. Heart: Stable heart size Lungs/Pleura: There is now partial aeration of the right upper lobe. There is persistent opacificatio n/atelectasis throughout the right middle and lower lobes. Patchy infiltration in the left lung and s mall left pleural effusion are stable. No pneumothorax. Additional findings: None. IMPRESSION: Mild improvement is demonstrated. There is now partial aeration of the right upper lobe. Right middl e and lower lobe atelectasis persists. Signer Name: David Gardner Jr, MD Signed: 11/12/2020 3:42 PM Workstation Name: [id number]
[2020-11-13] MEDS: VANCOMYCIN 250 MG/10 ML ORAL LIQD PO SCH ×5 (00:23→23:32)
[2020-11-13] MEDS ORDERED: KETOROLAC 30 MG/1 ML INJ IV ONE (05:38)
[2020-11-13] MEDS: ALBUTEROL 2.5 MG/3 ML NEBU IH SCH ×3 (07:38→20:55)
--- NOTE | 2020-11-13 07:59 | Progress Note ---
Assessment and Plan Assessment and plan: This is a 75-year-old male who is a retirement resident with seizure disorder, hypertension, depression, hyperlipidemia, hypoglycemia, dysphagia, and encephalopathy who presents to the emergency department on 10/26 via EMS for tachypnea, dry mucous membranes and hypoxia. Patient was hypotensive, febrile to 103 degrees and hypoxic in the emergency department therefore he was intubated and central IV access was obtained. Patient received 3.5 L of IV fluid in the emergency department. Patient was admitted to the hospital service with consults to CCM, surgery, WOCN and ID for Sepsis, acute kidney injury, urinary tract infection, acute respiratory failure, electrolyte imbalances, infected sacral wound and bilateral pneumonia. Sepsis Acute respiratory failure Infected sacral wound s/p debridement with surgery Generalized anasarca possible acute diastolic congestive heart failure Anemia s/p 2 units prbc Proteus bacteremia MRSA pneumonia Urine tract infection Acute kidney injury with vasomotor Nephropathy Acute Diarrhea ?C.diff- Test was not peformed Leukocytosis SFA occlusion - Not a candidate for surgery per Vascular SVT- Resolved Hyponatremia Hyperchloremia Hypocalcemia Hypomagnesemia Hypophosphatemia Lactic acidosis 10/27: Patient received additional 4 L LR for fluid resuscitation and CV monitoring was initiated. Patient is on Levophed. ID added Flagyl to vancomycin and cefepime. His trach aspirate grew staph coccus aureus. At the time my examination patient the fentanyl drip was held by RN and he was on 14 MCG of Levophed. This morning he was on assist control 450/20/6/.100. We will give additional bolus of fluids with goal CVP 10-12 and repeat labs in AM. Surgery was consulted to possible debridement. 10/28: Overnight it was noted that patient went into SVT and he was given adenosine 6 mg/12 mg / 12 mg once and was started on a Cardizem drip after no response to amnio bolus and cardiology was consulted. Currently patient remains on Levophed drip and is hypotensive and received additional 2 L of bolus for goal CVP of 10-12. Infectious disease changed cefepime/Flagyl to meropenem for GNR in his blood cultures 09/04 and will continue vancomycin. Patient currently was not well controlled on max Cardizem and cardiology initiated amiodarone. Patient still is very tachycardic. Patient is hypomagnesemic and we will replete his Mg and recheck level. We will give the patient additional to complete resolve LR this afternoon. Patient has a standing order per [facility] to bolus the patient with LR for CVP goal of 10-12. This morning he is hyperchlormeic, metabolic acidotic (bicarb drip initiated) and his BUN/creatinine slightly elevated. Patient still remains lactic acidotic. 10/29: Patient's blood culture speciated to Proteus and his tracheal aspirate is MRSA. He is currently on ceftriaxone, Flagyl and vancomycin. Patient heart rate consistently is 110-150s and cardiology has given him an amiodarone bolus today and he remains on amiodarone drip. He looks much started on IV digoxin. This morning 4 L LR bolus was ordered and we will bolus an additional 4 L of LR this afternoon. Patient still has lactic acidosis, metabolic acidosis, leukocytosis and hyperchloremia. On examination this morning patient is more edematous and he remains on Levophed and amnio drip. 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 Remains on amio, levo and sedated with fentanyl. He is hypokalemic today which was repleted, h/h 02/18 and he is being type and crossed today with 2 units PRBC ordered to be transfused. Plt drop noted, heparin discontinued and HIT ordered. Bicarb gtt discontinued. No acute events overnight. 10/31: Patient hypomagnesemia today which was repleted and cardiology has changed his IV amiodarone to p.o. Patient will get albumin per [facility]. At the time my examination patient is on assist control 450/20/6/0.40. 11/03: At the time my examination patient is on assist control 450/20/6/0.25 and sedated with fentanyl and on Levophed at 4.Patient's leukocytosis is improving he received Albumin this weekend. Patient is hypokalemic, hypomagnesemic, hypocalcemic today. We will repeat his electrolytes and recheck a BMP in the a.m. Patient received 2 units PRBC on 10/30 and his hemoglobin has been trending down. We will recheck in the a.m. 11/04: At the time of my examination patient was on Levophed 3 mcg and on VZV/CPAP 450/20/6/0.35. Patient still has leukocytosis, respiratory alkalosis, hyponatremia, hypochloremia, hypocalcemia. Today his magnesium and potassium repleted with bolus of potassium 4/magnesium 2. He received 60 mcg KCl p.o., 40 mEq of KCl IV and 2 g of magnesium sulfate. We will recheck BMP and mag and a.m. Surgery has deemed the patient to unstable for further debulking. We also consulted vascular surgery for PVD as patient has discoloration to BLE /feet. 11/05: Vascular surgery will obtain bilateral lower extremity arterial duplex to evaluate arterial flow and recommends adding as FWF to tube feedings in assisting to wean off of vasopressors. Patient has hypokalemia, hypophosphatemia and normal to low magnesium. Magnesium, potassium and phosphate have been repleted. Patient still remains on ventilator support but on CPAP trial this morning. Patient HIT is still pending. This morning at the time of my examination patient was on assist-control 450/20/6/0.35 and he tolerated CPAP trial for 4 hours yesterday. He was on Levophed 0.5 and his rectal tube output was noted at 1000 mL. 11/06: This morning patient was on a CPAP trial and became hypoxic with SPO2 into the 80s and was switched back to assist control. Patient's vent settings are assist control tidal and 450, rate 20, PEEP 6, FiO2 0.25. Today patient has leukocytosis, hypernatremia, hyperchloremia, hypocalcemia and hypophosphatemia. We will repeat a phosphate. His free water flushes have been increased and his magnesium has been repleted again. Patient has been started on Lovenox given improvement in his platelet count and on midodrine to help keep Levophed off. Infectious disease will continue p.o. vancomycin for total of 10 days. 11/07: Patient failed his CPAP trial yesterday and has been placed on CPAP 05/06 again this morning by RT. Overnight patient was rested on assist control tolerance by 50, rate of 20, pressure support 6 and FiO2 30%. His lab work is still pending for this morning. On repeat his phosphorus was 4.50 yesterday and repletion was discontinued. 11/08/2020; patient is off pressors currently on midodrine. Patient is on ceftriaxone and vancomycin. Patient is on assist control. Patient was evaluated by vascular surgery for peripheral vascular disease with SFA occlusion and recommend no intervention at this time. Prognosis is guarded. Patient is on 2 L of intranasal oxygen. We will put speech therapy evaluation. 11/09/2020; patient is currently off pressors and on midodrine. Continue with ceftriaxone, Flagyl and vancomycin per ID recommendation. Patient's blood culture grew Proteus mirabilis and tracheal aspirate grew MRSA. Patient was evaluated by vascular surgery for PVD with SFA occlusion and recommend no intervention at this time. Patient is on 2 L of intranasal oxygen. Currently patient is on tube feeding and follow speech therapy evaluation. 11/10: Overnight noted to have increased RR, ? Awaiting speech eval considering patient still on Tube feeds. Continue to monitor Hypernatremia. Antibiotics today will be [id number]. Will continue discharge planning on discussion with CM. Patient nonrebreather. Possibly back on congestive heart failure will need appropriate diuresis. Transferred back to [facility]. Discussed with investigation officer and also with cardiology. 11/11: Remains lethargic remains in respiratory distress chest x-ray shows right lung collapse likely secondary to mucous plug. Discussed with investigation officer will likely undergo a bronchoscopy today. We will also continue to monitor as we did suggest possible pleural effusion which we think may be less likely but if that seems to be the case we will send patient for thoracentesis following the bronchoscopy. Continue to monitor hemoglobin continue to monitor diarrhea antibiotics management per infectious disease. I did speak and update patient's cousin yesterday. Patient still with edema will await cardiology reevaluation for possible further diuresis. 11/12: Ptient for Bronchoscopy today. Continue supportive care The high probability of a clinically significant, sudden or life threatening deterioration of the [pulmonary, cardiac] system(s) required my full and direct attention, intervention and personal management. The aggregate critical care time was [35] minutes. This time is in addition to time spent performing reported procedures but includes the following: [X] Data Review and interpretation [X] Patient assessment and monitoring of vital signs [X] Documentation [X] Medication orders and management History Interval history: late entry Patient seen and examined remains on high Flow, preping for bronch today. Hospitalist Physical - Physical exam Narrative exam: VITAL SIGNS: Reviewed. GENERAL: The patient appears normally developed, on high flow in moderate distress vital signs as documented. HEAD: No signs of head trauma. EYES: Pupils are equal. Extraocular motions intact. EARS: Hearing grossly intact. MOUTH: Oropharynx is normal. NECK: No adenopathy, no JVD. CHEST: Chest with crackles breath sounds bilaterally. No wheezes CARDIAC: Regular rate and rhythm. S1 and S2, without murmurs, gallops, or rubs. VASCULAR: +2 bilateral pitting edema. Peripheral pulses normal and equal in all extremities. ABDOMEN: Soft, non tender and non distended. No rebound or guarding, and no masses palpated. Bowel Sounds normal. MUSCULOSKELETAL: Good range of motion of all major joints. Extremities without clubbing, cyanosis. +2 bilateral pitting edema. NEUROLOGIC EXAM: Awake but lethargic and oriented x 3 No focal sensory or strength deficits. Speech garbled speech but improved compared to yesterday. Follows commands. PSYCHIATRIC: Mood normal. SKIN: detail exam as documented in skin assessment - Constitutional Vitals: Temp Pulse Resp BP Pulse Ox 98.2 F 62 22 139/84 94 11/13/20 04:00 11/13/20 04:50 11/13/20 04:50 11/12/20 23:41 11/13/20 06:12 General appearance: Present: no acute distress, other (Intubated, resting comfortably) HEART Score - HEART Score EKG: Non-specific Age: > 65 Risk factors: > 3 risk factors or hx of atherosclerotic disease Troponin: Troponin T 0.062 ng/mL (0.00-0.029) H 10/26/20 17:25 Troponin: < normal limit - Critical Actions Critical Actions: 4-6 pts:12-16.6% risk of adverse cardiac event. Should be admitted Results - Labs CBC & Chem 7: 11/12/20 08:33 11/12/20 08:33 Labs: Laboratory Last Values WBC 13.4 K/mm3 (4.5-11.0) H 11/12/20 08:33 RBC 2.35 M/mm3 (3.65-5.03) L 11/12/20 08:33 Hgb 7.5 gm/dl (11.8-15.2) L 11/12/20 08:33 Hct 23.7 % (35.5-45.6) L 11/12/20 08:33 MCV 101 fl (84-94) H 11/12/20 08:33 MCH 32 pg (28-32) 11/12/20 08:33 MCHC 32 % (32-34) 11/12/20 08:33 RDW 19.7 % (13.2-15.2) H 11/12/20 08:33 Plt Count 274 K/mm3 (140-440) 11/12/20 08:33 Lymph % (Auto) 9.1 % (13.4-35.0) L 11/09/20 06:00 Stevens % (Auto) 5.4 % (0.0-7.3) 11/09/20 06:00 Eos % (Auto) 0.3 % (0.0-4.3) 11/09/20 06:00 Baso % (Auto) 0.4 % (0.0-1.8) 11/09/20 06:00 Lymph # (Auto) 1.2 K/mm3 (1.2-5.4) 11/09/20 06:00 Stevens # (Auto) 0.7 K/mm3 (0.0-0.8) 11/09/20 06:00 Eos # (Auto) 0.0 K/mm3 (0.0-0.4) 11/09/20 06:00 Baso # (Auto) 0.0 K/mm3 (0.0-0.1) 11/09/20 06:00 Add Manual Diff Complete 11/10/20 13:46 Total Counted 100 11/10/20 13:46 Seg Neutrophils % 84.8 % (40.0-70.0) H 11/09/20 06:00 Seg Neuts % (Manual) 90.0 % (40.0-70.0) H 11/10/20 13:46 Band Neutrophils % 17.0 % 10/27/20 03:30 Lymphocytes % (Manual) 3.0 % (13.4-35.0) L 11/10/20 13:46 Monocytes % (Manual) 7.0 % (0.0-7.3) 11/10/20 13:46 Eosinophils % (Manual) 2.0 % (0.0-4.3) 10/27/20 03:30 Metamyelocytes % 4.0 % 10/27/20 03:30 Nucleated RBC % Not Reportable 11/10/20 13:46 Seg Neutrophils # 11.1 K/mm3 (1.8-7.7) H 11/09/20 06:00 Seg Neutrophils # Man 14.5 K/mm3 (1.8-7.7) H 11/10/20 13:46 Band Neutrophils # 0.0 K/mm3 11/10/20 13:46 Lymphocytes # (Manual) 0.5 K/mm3 (1.2-5.4) L 11/10/20 13:46 Abs React Lymphs (Man) 0.0 K/mm3 11/10/20 13:46 Monocytes # (Manual) 1.1 K/mm3 (0.0-0.8) H 11/10/20 13:46 Eosinophils # (Manual) 0.0 K/mm3 (0.0-0.4) 11/10/20 13:46 Basophils # (Manual) 0.0 K/mm3 (0.0-0.1) 11/10/20 13:46 Metamyelocytes # 0.0 K/mm3 11/10/20 13:46 Myelocytes # 0.0 K/mm3 11/10/20 13:46 Promyelocytes # 0.0 K/mm3 11/10/20 13:46 Blast Cells # 0.0 K/mm3 11/10/20 13:46 WBC Morphology Not Reportable 11/10/20 13:46 Hypersegmented Neuts Not Reportable 11/10/20 13:46 Hyposegmented Neuts Not Reportable 11/10/20 13:46 Hypogranular Neuts Not Reportable 11/10/20 13:46 Smudge Cells Not Reportable 11/10/20 13:46 Toxic Granulation Not Reportable 11/10/20 13:46 Toxic Vacuolation Not Reportable 11/10/20 13:46 Dohle Bodies Not Reportable 11/10/20 13:46 Pelger-Huet Anomaly Not Reportable 11/10/20 13:46 Kassi Rods Not Reportable 11/10/20 13:46 Platelet Estimate Not Reportable 11/10/20 13:46 Clumped Platelets Not Reportable 11/10/20 13:46 Plt Clumps, EDTA Not Reportable 11/10/20 13:46 Large Platelets Not Reportable 11/10/20 13:46 Giant Platelets Not Reportable 11/10/20 13:46 Platelet Satelliting Not Reportable 11/10/20 13:46 Plt Morphology Comment Not Reportable 11/10/20 13:46 RBC Morphology Not Reportable 11/10/20 13:46 Dimorphic RBCs Yes 11/10/20 13:46 Polychromasia Not Reportable 11/10/20 13:46 Hypochromasia Not Reportable 11/10/20 13:46 Poikilocytosis Not Reportable 11/10/20 13:46 Anisocytosis Not Reportable 11/10/20 13:46 Microcytosis Rare 11/10/20 13:46 Macrocytosis Rare 11/10/20 13:46 Spherocytes Not Reportable 11/10/20 13:46 Pappenheimer Bodies Not Reportable 11/10/20 13:46 Sickle Cells Not Reportable 11/10/20 13:46 Target Cells Not Reportable 11/10/20 13:46 Tear Drop Cells Not Reportable 11/10/20 13:46 Ovalocytes Not Reportable 11/10/20 13:46 Helmet Cells Not Reportable 11/10/20 13:46 [place]-Sunsites Bodies Not Reportable 11/10/20 13:46 [place] Rings Not Reportable 11/10/20 13:46 [place] Cells Not Reportable 11/10/20 13:46 Bite Cells Not Reportable 11/10/20 13:46 Crenated Cell Not Reportable 11/10/20 13:46 Elliptocytes Not Reportable 11/10/20 13:46 Acanthocytes (Spur) Not Reportable 11/10/20 13:46 Rouleaux Not Reportable 11/10/20 13:46 Hemoglobin C Crystals Not Reportable 11/10/20 13:46 Schistocytes Not Reportable 11/10/20 13:46 Malaria parasites Not Reportable 11/10/20 13:46 Richard Bodies Not Reportable 11/10/20 13:46 Hem Pathologist Commnt No 11/10/20 13:46 PT 15.0 Sec. (12.2-14.9) H 11/11/20 14:38 INR 1.18 (0.87-1.13) H 11/11/20 14:38 APTT 27.9 Sec. (24.2-36.6) 10/26/20 17:25 Heparin Anti-Xa, Unfract Negative (Negative) 11/03/20 11:01 ABG pH 7.440 pH Units (7.350-7.450) 11/07/20 12:55 POC ABG pCO2 28.9 mmHg (32.0-48.0) L 11/04/20 11:42 ABG pCO2 35.4 mm Hg 11/07/20 12:55 POC ABG pO2 64.3 mmHg (83-108) L 11/04/20 11:42 ABG pO2 82.0 mm Hg (80.0-90.0) 11/07/20 12:55 POC ABG HCO3 23.3 11/04/20 11:42 ABG HCO3 23.4 mmol/L (20.0-26.0) 11/07/20 12:55 ABG O2 Saturation 96.9 % (95.0-99.0) 11/07/20 12:55 ABG O2 Content 10.5 (0.0-44) 11/07/20 12:55 POC ABG Base Excess 0.9 11/04/20 11:42 ABG Base Excess -0.5 mmol/L (-2.0-3.0) 11/07/20 12:55 ABG Hemoglobin 7.7 gm/dl (14.0-18.0) L 11/07/20 12:55 ABG Oxyhemoglobin 94 (94-98) 11/04/20 11:42 ABG Carboxyhemoglobin 1.4 % (0.0-5.0) 11/07/20 12:55 ABG Methemoglobin 0.6 % (0.0-1.5) 11/07/20 12:55 ABG Sodium 142.4 mmol/L (136.0-145.0) 11/04/20 11:42 ABG Potassium 3.3 mmol/L (3.40-4.50) L 11/04/20 11:42 ABG Chloride 115.0 mmol/L (98-107) H 11/04/20 11:42 ABG Glucose 165 mg/dL (65-95) H 11/04/20 11:42 Oxyhemoglobin 94.9 % (95.0-99.0) L 11/07/20 12:55 Carboxyhemoglobin 1 (0.5-1.5) 11/04/20 11:42 FiO2 30 % 11/07/20 12:55 FiO2 % 35 11/04/20 11:42 Sodium 154 mmol/L (137-145) H 11/12/20 08:33 Potassium 2.9 mmol/L (3.6-5.0) L* 11/12/20 08:33 Chloride 121.4 mmol/L (98-107) H 11/12/20 08:33 Carbon Dioxide 25 mmol/L (22-30) 11/12/20 08:33 Anion Gap 11 mmol/L 11/12/20 08:33 BUN 26 mg/dL (9-20) H 11/12/20 08:33 Creatinine 0.4 mg/dL (0.8-1.3) L 11/12/20 08:33 Estimated GFR > 60 ml/min 11/12/20 08:33 BUN/Creatinine Ratio 65 % 11/12/20 08:33 Glucose 153 mg/dL (75-100) H 11/12/20 08:33 POC Glucose 86 mg/dL (70-105) 11/13/20 05:30 Hemoglobin A1c 5.5 % (4-6) 10/27/20 04:42 Lactic Acid 4.30 mmol/L (0.7-2.0) H* 10/31/20 Unknown Calcium 7.3 mg/dL (8.4-10.2) L 11/12/20 08:33 Phosphorus 4.50 mg/dL (2.5-4.5) D 11/06/20 13:03 Magnesium 1.80 mg/dL (1.7-2.3) 11/07/20 16:45 Total Bilirubin < 0.20 mg/dL (0.1-1.2) 11/06/20 06:45 AST 23 units/L (5-40) 11/06/20 06:45 ALT 20 units/L (7-56) 11/06/20 06:45 Alkaline Phosphatase 117 units/L (35-129) 11/06/20 06:45 Total Creatine Kinase 31 units/L (55-170) L 10/26/20 17:28 Troponin T 0.062 ng/mL (0.00-0.029) H 10/26/20 17:25 Total Protein 5.0 g/dL (6.3-8.2) L 11/06/20 06:45 Albumin 1.4 g/dL (3.9-5) L 11/06/20 06:45 Albumin/Globulin Ratio 0.4 % 11/06/20 06:45 Triglycerides 190 mg/dL (2-149) H 10/26/20 17:25 Cholesterol 92 mg/dL (50-199) 10/26/20 17:25 LDL Cholesterol Direct 33 mg/dL (50-130) L 10/26/20 17:25 HDL Cholesterol 18 mg/dL (40-59) L 10/26/20 17:25 Cholesterol/HDL Ratio 5.11 % 10/26/20 17:25 TSH 1.490 mlU/mL (0.270-4.200) 10/26/20 17:28 Arterial Blood Glucose 165 mg/dL (65-95) H 11/04/20 11:42 Arterial Blood Ionized Calcium 4.0 mg/dL (4.6-5.3) L 11/04/20 11:42 Urine Color Yellow (Yellow) 10/27/20 Unknown Urine Turbidity Turbid (Clear) 10/27/20 Unknown Urine pH 8.0 (5.0-7.0) H 10/27/20 Unknown Ur Specific Mack 1.020 (1.003-1.030) 10/27/20 Unknown Urine Protein >500 mg/dL (Negative) 10/27/20 Unknown Urine Glucose (UA) Neg mg/dL (Negative) 10/27/20 Unknown Urine Ketones Neg mg/dL (Negative) 10/27/20 Unknown Urine Blood Sm (Negative) 10/27/20 Unknown Urine Nitrite Neg (Negative) 10/27/20 Unknown Urine Bilirubin Neg (Negative) 10/27/20 Unknown Urine Urobilinogen < 2.0 mg/dL (<2.0) 10/27/20 Unknown Ur Leukocyte Esterase Mod (Negative) 10/27/20 Unknown Urine WBC (Auto) > 182.0 /HPF (0.0-6.0) H 10/27/20 Unknown Urine RBC (Auto) 35.0 /HPF (0.0-6.0) 10/27/20 Unknown Urine WBC Clumps 3+ /HPF 10/27/20 Unknown Urine Mucus 3+ /HPF 10/27/20 Unknown Urine Yeast (Budding) 3+ /HPF 10/27/20 Unknown Vancomycin Trough 22.0 ug/mL (5.0-20.0) H 10/30/20 Unknown Salicylates < 0.3 mg/dL (2.8-20.0) L 10/26/20 17:28 Acetaminophen 5.0 ug/mL (10.0-30.0) L 10/26/20 17:28 Heparin-induced Plt Ab Negative (Negative) 11/03/20 11:01 UF Heparin High Dose 0 % Release 11/03/20 11:01 MOISES UFH Low Dose 0.1 2 % Release 11/03/20 11:01 MOISES UFH Low Dose 0.5 0 % Release 11/03/20 11:01 Coronavirus (PCR) Negative (Negative) 10/27/20 Unknown Blood Type O POSITIVE 10/30/20 09:30 Antibody Screen Negative 10/30/20 09:30 Crossmatch See Detail 10/30/20 09:30 Rivas/IV: Voiding Method Incontinent Active Medications - Current Medications Current Medications: Generic Name Dose Route Start Last Admin Trade Name Freq PRN Reason Stop Dose Admin Acetaminophen 650 mg 10/26/20 22:22 11/12/20 06:13 Acetaminophen 325 Mg Tab PO 650 mg Q4H PRN Administration Pain MILD(1-3)/Fever >100.5/TIERNEY Albuterol 2.5 mg 11/11/20 14:00 11/12/20 20:21 Albuterol 2.5 Mg/3 Ml Nebu IH 2.5 mg TIDRT MARSHALL Administration Amiodarone HCl 200 mg 11/08/20 10:00 11/12/20 09:16 Amiodarone 200 Mg Tab PO 200 mg DAILY MARSHALL Administration Lipase/Protease/Amylase 1 each 10/28/20 13:18 Lipase 10,500/Protease 25,000/Amylase 43,750 (Units) Dr Casper FEEDTUBE PRN PRN For Clogged Feeding Tube Enoxaparin Sodium 40 mg 11/07/20 10:00 11/12/20 09:16 Enoxaparin 40 Mg/0.4 Ml Inj SUB-Q 40 mg QDAY@1000 MARSHALL Administration Famotidine 20 mg 11/11/20 10:00 11/12/20 21:45 Famotidine 20 Mg Tab PO 20 mg BID MARSHALL Administration Midodrine 10 mg 11/06/20 12:00 11/12/20 15:06 Midodrine 5 Mg Tab PO 10 mg TID@0800,1200,1600 MARSHALL Administration Ondansetron HCl 4 mg 10/26/20 22:22 Ondansetron 4 Mg/2 Ml Inj IV Q8H PRN Nausea And Vomiting Simple Syrup 15 ml 10/28/20 13:18 11/10/20 16:01 Simple Syrup 15 Ml FEEDTUBE 15 ml PRN PRN Administration Hypoglycemia Simple Syrup 30 ml 10/28/20 13:18 Simple Syrup 15 Ml FEEDTUBE PRN PRN Hypoglycemia Sodium Bicarbonate 325 mg 10/28/20 13:18 Sodium Bicarbonate 325 Mg Tab FEEDTUBE PRN PRN For Clogged Feeding Tube Sodium Chloride 10 ml 10/27/20 10:00 11/12/20 21:45 Sodium Chloride 0.9% 10 Ml Flush Syringe IV 10 ml BID MARSHALL Administration Sodium Chloride 10 ml 10/26/20 22:22 Sodium Chloride 0.9% 10 Ml Flush Syringe IV PRN PRN LINE FLUSH Sodium Hypochlorite 1 applic 10/28/20 10:00 11/12/20 21:44 Sodium Hypochlorite, Dakin's 1/2 Strength (0.25%) 473 Ml Topical Soln TP 1 applicatio BID MARSHALL Administration Vancomycin HCl 125 mg 11/05/20 18:00 11/13/20 05:59 Vancomycin 250 Mg/10 Ml Oral Liqd PO 11/15/20 12:01 125 mg Q6HR MARSHALL Administration Protocol Nutrition/Malnutrition Assess - Dietary Evaluation Nutrition/Malnutrition Findings: Nutrition Notes Start: 10/27/20 09:15 Freq: Status: Active Protocol: Document 11/11/20 15:01 CW (Rec: 11/11/20 15:09 [email or web address]) Nutrition Notes Initial or Follow up Reassessment Current Diagnosis Acute Kidney Injury,Decubitus( Pressure Ulcer),Sepsis, Hypertension,Respiratory Failure,Hyperlipidemia Other Pertinent Diagnosis AMS, MRSA, Encephalopathy, Metabiloc Acidosis, pneu ,FTT Current Diet Vital HP at 80 ml/hr Labs/Tests Na 153 BUN 27 Pertinent Medications Flagyl Height 6 ft 2 in Weight 136 kg [place] Body Weight (kg) 86.36 BMI 38.5 Weight change and time frame Weight stable at this time Weight Status Obese Subjective/Other Information F/U for tolerance. TF continues to run at goal and flush is 150ml q4h. Will increase to 250 ml q4h d/t hypernatremia. Pt tolerating TF well. Diarrhea likely r/t antibiotics. Pt has been extubated but per BIOMEDICAL ENGINEERING TECHNICIAN, pt remains at risk for aspiration . Will change TF formula d/t no longer on mechanical vent Percent of energy/protein needs met: 100%/100% Burn Absent Trauma Absent GI Symptoms Diarrhea Difficulty In Swallowing,Chewing Skin Integrity/Comment Multiple pressure ulcer,1 infected Current % PO Negligible Minimum of two criteria No Fluid Accumulation Moderate to Severe (severe) #2 Nutrition Diagnosis Increased nutrient needs ( specify in comment below) Diagnosis Progress(for reassessment Continues documentation) #1 Nutrition Diagnosis Inadequate oral intake As Evidenced by Signs and Symptoms pt extubated but still at high aspiration risk Diagnosis Progress(for reassessment Continues documentation) Is patient on ventilator? Yes Is Patient Ambulatory and/or Out of Bed No REE-([facility]-confined to bed) 2597.364 Kcal/Kg value to use for calculation 14 Approximate Energy Requirements Using 1904 kcal/Kg Calculation Used for Recommendations Kcal/kg Additional Notes protein needs: 133 - 167g(1.2 - 1.5 g/kgAdBW 111) Fluid needs 1 ml/kcal Nutrition Intervention Change Diet Order: Change TF regimen Nutrition Support: Promote at 80 ml/hr with a free water flush of 250 ml q4h for hypernatremia, once resolved resume flush of 50 ml q4h Kcal 1,920 Protein (gm) 120 Fluid (mL) 1,611 Goal #1 TF tolerance Goal #2 Meet at least 75% EER and protein needs via TF Goal #3 wound healing Anticipated Discharge Needs: unable to determine at this time Follow-Up By: 11/13/20 Additional Comments F/U TF change,TF tolerance
--- NOTE | 2020-11-13 08:19 | Progress Note ---
Assessment and Plan Assessment and plan: This is a 75-year-old male who is a [facility] with seizure disorder, hypertension, depression, hyperlipidemia, hypoglycemia, dysphagia, and encephalopathy who presents to the emergency department on 10/26 via EMS for tachypnea, dry mucous membranes and hypoxia. Patient was hypotensive, febrile to 103 degrees and hypoxic in the emergency department therefore he was intubated and central IV access was obtained. Patient received 3.5 L of IV fluid in the emergency department. Patient was admitted to the hospital service with consults to CCM, surgery, WOCN and ID for Sepsis, acute kidney injury, urinary tract infection, acute respiratory failure, electrolyte imbalances, infected sacral wound and bilateral pneumonia. Sepsis Acute respiratory failure Infected sacral wound s/p debridement with surgery Generalized anasarca possible acute diastolic congestive heart failure Anemia s/p 2 units prbc Proteus bacteremia MRSA pneumonia Urine tract infection Acute kidney injury with vasomotor Nephropathy Acute Diarrhea ?C.diff- Test was not peformed Leukocytosis SFA occlusion - Not a candidate for surgery per Vascular SVT- Resolved Hyponatremia Hyperchloremia Hypocalcemia Hypomagnesemia Hypophosphatemia Lactic acidosis 10/27: Patient received additional 4 L LR for fluid resuscitation and CV monitoring was initiated. Patient is on Levophed. ID added Flagyl to vancomycin and cefepime. His trach aspirate grew staph coccus aureus. At the time my examination patient the fentanyl drip was held by RN and he was on 14 MCG of Levophed. This morning he was on assist control 450/20/6/.100. We will give additional bolus of fluids with goal CVP 10-12 and repeat labs in AM. Surgery was consulted to possible debridement. 10/28: Overnight it was noted that patient went into SVT and he was given adenosine 6 mg/12 mg / 12 mg once and was started on a Cardizem drip after no response to amnio bolus and cardiology was consulted. Currently patient remains on Levophed drip and is hypotensive and received additional 2 L of bolus for goal CVP of 10-12. Infectious disease changed cefepime/Flagyl to meropenem for GNR in his blood cultures 09/04 and will continue vancomycin. Patient currently was not well controlled on max Cardizem and cardiology initiated amiodarone. Patient still is very tachycardic. Patient is hypomagnesemic and we will replete his Mg and recheck level. We will give the patient additional to complete resolve LR this afternoon. Patient has a standing order per [facility] to bolus the patient with LR for CVP goal of 10-12. This morning he is hyperchlormeic, metabolic acidotic (bicarb drip initiated) and his BUN/creatinine slightly elevated. Patient still remains lactic acidotic. 10/29: Patient's blood culture speciated to Proteus and his tracheal aspirate is MRSA. He is currently on ceftriaxone, Flagyl and vancomycin. Patient heart rate consistently is 110-150s and cardiology has given him an amiodarone bolus today and he remains on amiodarone drip. He looks much started on IV digoxin. This morning 4 L LR bolus was ordered and we will bolus an additional 4 L of LR this afternoon. Patient still has lactic acidosis, metabolic acidosis, leukocytosis and hyperchloremia. On examination this morning patient is more edematous and he remains on Levophed and amnio drip. 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 Remains on amio, levo and sedated with fentanyl. He is hypokalemic today which was repleted, h/h 02/18 and he is being type and crossed today with 2 units PRBC ordered to be transfused. Plt drop noted, heparin discontinued and HIT ordered. Bicarb gtt discontinued. No acute events overnight. 10/31: Patient hypomagnesemia today which was repleted and cardiology has changed his IV amiodarone to p.o. Patient will get albumin per [facility]. At the time my examination patient is on assist control 450/20/6/0.40. 11/03: At the time my examination patient is on assist control 450/20/6/0.25 and sedated with fentanyl and on Levophed at 4.Patient's leukocytosis is improving he received Albumin this weekend. Patient is hypokalemic, hypomagnesemic, hypocalcemic today. We will repeat his electrolytes and recheck a BMP in the a.m. Patient received 2 units PRBC on 10/30 and his hemoglobin has been trending down. We will recheck in the a.m. 11/04: At the time of my examination patient was on Levophed 3 mcg and on VZV/CPAP 450/20/6/0.35. Patient still has leukocytosis, respiratory alkalosis, hyponatremia, hypochloremia, hypocalcemia. Today his magnesium and potassium repleted with bolus of potassium 4/magnesium 2. He received 60 mcg KCl p.o., 40 mEq of KCl IV and 2 g of magnesium sulfate. We will recheck BMP and mag and a.m. Surgery has deemed the patient to unstable for further debulking. We also consulted vascular surgery for PVD as patient has discoloration to BLE /feet. 11/05: Vascular surgery will obtain bilateral lower extremity arterial duplex to evaluate arterial flow and recommends adding as FWF to tube feedings in assisting to wean off of vasopressors. Patient has hypokalemia, hypophosphatemia and normal to low magnesium. Magnesium, potassium and phosphate have been repleted. Patient still remains on ventilator support but on CPAP trial this morning. Patient HIT is still pending. This morning at the time of my examination patient was on assist-control 450/20/6/0.35 and he tolerated CPAP trial for 4 hours yesterday. He was on Levophed 0.5 and his rectal tube output was noted at 1000 mL. 11/06: This morning patient was on a CPAP trial and became hypoxic with SPO2 into the 80s and was switched back to assist control. Patient's vent settings are assist control tidal and 450, rate 20, PEEP 6, FiO2 0.25. Today patient has leukocytosis, hypernatremia, hyperchloremia, hypocalcemia and hypophosphatemia. We will repeat a phosphate. His free water flushes have been increased and his magnesium has been repleted again. Patient has been started on Lovenox given improvement in his platelet count and on midodrine to help keep Levophed off. Infectious disease will continue p.o. vancomycin for total of 10 days. 11/07: Patient failed his CPAP trial yesterday and has been placed on CPAP 05/06 again this morning by RT. Overnight patient was rested on assist control tolerance by 50, rate of 20, pressure support 6 and FiO2 30%. His lab work is still pending for this morning. On repeat his phosphorus was 4.50 yesterday and repletion was discontinued. 11/08/2020; patient is off pressors currently on midodrine. Patient is on ceftriaxone and vancomycin. Patient is on assist control. Patient was evaluated by vascular surgery for peripheral vascular disease with SFA occlusion and recommend no intervention at this time. Prognosis is guarded. Patient is on 2 L of intranasal oxygen. We will put speech therapy evaluation. 11/09/2020; patient is currently off pressors and on midodrine. Continue with ceftriaxone, Flagyl and vancomycin per ID recommendation. Patient's blood culture grew Proteus mirabilis and tracheal aspirate grew MRSA. Patient was evaluated by vascular surgery for PVD with SFA occlusion and recommend no intervention at this time. Patient is on 2 L of intranasal oxygen. Currently patient is on tube feeding and follow speech therapy evaluation. 11/10: Overnight noted to have increased RR, ? Awaiting speech eval considering patient still on Tube feeds. Continue to monitor Hypernatremia. Antibiotics today will be D114. Will continue discharge planning on discussion with CM. Patient nonrebreather. Possibly back on congestive heart failure will need appropriate diuresis. Transferred back to [facility]. Discussed with automotive mechanic and also with cardiology. 11/11: Remains lethargic remains in respiratory distress chest x-ray shows right lung collapse likely secondary to mucous plug. Discussed with automotive mechanic will likely undergo a bronchoscopy today. We will also continue to monitor as we did suggest possible pleural effusion which we think may be less likely but if that seems to be the case we will send patient for thoracentesis following the bronchoscopy. Continue to monitor hemoglobin continue to monitor diarrhea antibiotics management per infectious disease. I did speak and update patient's cousin yesterday. Patient still with edema will await cardiology reevaluation for possible further diuresis. 11/12: Patient for Bronchoscopy today. Continue supportive care 11/13: Patient Clinically improving, tolerated Bronchoscopy yesterday. Awaiting am labs today. Overnight had bradycardia. Continue weaning oxygen. Discussed with mathematics academic chair patient did have bronchial plug plus pleural effusion but will address. Will monitor serial x-rays. Discussed with nursing staff about my discussion with the brother. Continue supportive care PER [phone] patient has had recurrent knee aspiration Cardiology to re-evaluate today for Bradycardia noted overnight The high probability of a clinically significant, sudden or life threatening deterioration of the [pulmonary, cardiac] system(s) required my full and direct attention, intervention and personal management. The aggregate critical care time was [35] minutes. This time is in addition to time spent performing reported procedures but includes the following: [X] Data Review and interpretation [X] Patient assessment and monitoring of vital signs [X] Documentation [X] Medication orders and management History Interval history: Patient seen and examined, no new complaints. still on Non rebreather. Hospitalist Physical - Physical exam Narrative exam: VITAL SIGNS: Reviewed. GENERAL: The patient appears normally developed, Non rebreather, mask on. vital signs as documented. HEAD: No signs of head trauma. EYES: Pupils are equal. Extraocular motions intact. EARS: Hearing grossly intact. MOUTH: Oropharynx is normal. NECK: No adenopathy, no JVD. CHEST: Chest with crackles breath sounds bilaterally. No wheezes CARDIAC: Regular rate and rhythm. S1 and S2, without murmurs, gallops, or rubs. VASCULAR: +2 bilateral pitting edema. Peripheral pulses normal and equal in all extremities. ABDOMEN: Soft, non tender and non distended. No rebound or guarding, and no masses palpated. Bowel Sounds normal. MUSCULOSKELETAL: Good range of motion of all major joints. Extremities without clubbing, cyanosis. +2 bilateral pitting edema. NEUROLOGIC EXAM: Awake but lethargic and oriented x 3 No focal sensory or strength deficits. Speech garbled speech but improved compared to yesterday. Follows commands. PSYCHIATRIC: Mood normal. SKIN: detail exam as documented in skin assessment - Constitutional Vitals: Temp Pulse Resp BP Pulse Ox 98.2 F 62 22 139/84 94 11/13/20 04:00 11/13/20 04:50 11/13/20 04:50 11/12/20 23:41 11/13/20 06:12 General appearance: Present: no acute distress, other (Intubated, resting comfortably) HEART Score - HEART Score EKG: Non-specific Age: > 65 Risk factors: > 3 risk factors or hx of atherosclerotic disease Troponin: Troponin T 0.062 ng/mL (0.00-0.029) H 10/26/20 17:25 Troponin: < normal limit - Critical Actions Critical Actions: 4-6 pts:12-16.6% risk of adverse cardiac event. Should be admitted Results - Labs CBC & Chem 7: 11/12/20 08:33 11/12/20 08:33 Labs: Laboratory Last Values WBC 13.4 K/mm3 (4.5-11.0) H 11/12/20 08:33 RBC 2.35 M/mm3 (3.65-5.03) L 11/12/20 08:33 Hgb 7.5 gm/dl (11.8-15.2) L 11/12/20 08:33 Hct 23.7 % (35.5-45.6) L 11/12/20 08:33 MCV 101 fl (84-94) H 11/12/20 08:33 MCH 32 pg (28-32) 11/12/20 08:33 MCHC 32 % (32-34) 11/12/20 08:33 RDW 19.7 % (13.2-15.2) H 11/12/20 08:33 Plt Count 274 K/mm3 (140-440) 11/12/20 08:33 Lymph % (Auto) 9.1 % (13.4-35.0) L 11/09/20 06:00 [place] % (Auto) 5.4 % (0.0-7.3) 11/09/20 06:00 Eos % (Auto) 0.3 % (0.0-4.3) 11/09/20 06:00 Baso % (Auto) 0.4 % (0.0-1.8) 11/09/20 06:00 Lymph # (Auto) 1.2 K/mm3 (1.2-5.4) 11/09/20 06:00 [place] # (Auto) 0.7 K/mm3 (0.0-0.8) 11/09/20 06:00 Eos # (Auto) 0.0 K/mm3 (0.0-0.4) 11/09/20 06:00 Baso # (Auto) 0.0 K/mm3 (0.0-0.1) 11/09/20 06:00 Add Manual Diff Complete 11/10/20 13:46 Total Counted 100 11/10/20 13:46 Seg Neutrophils % 84.8 % (40.0-70.0) H 11/09/20 06:00 Seg Neuts % (Manual) 90.0 % (40.0-70.0) H 11/10/20 13:46 Band Neutrophils % 17.0 % 10/27/20 03:30 Lymphocytes % (Manual) 3.0 % (13.4-35.0) L 11/10/20 13:46 Monocytes % (Manual) 7.0 % (0.0-7.3) 11/10/20 13:46 Eosinophils % (Manual) 2.0 % (0.0-4.3) 10/27/20 03:30 Metamyelocytes % 4.0 % 10/27/20 03:30 Nucleated RBC % Not Reportable 11/10/20 13:46 Seg Neutrophils # 11.1 K/mm3 (1.8-7.7) H 11/09/20 06:00 Seg Neutrophils # Man 14.5 K/mm3 (1.8-7.7) H 11/10/20 13:46 Band Neutrophils # 0.0 K/mm3 11/10/20 13:46 Lymphocytes # (Manual) 0.5 K/mm3 (1.2-5.4) L 11/10/20 13:46 Abs React Lymphs (Man) 0.0 K/mm3 11/10/20 13:46 Monocytes # (Manual) 1.1 K/mm3 (0.0-0.8) H 11/10/20 13:46 Eosinophils # (Manual) 0.0 K/mm3 (0.0-0.4) 11/10/20 13:46 Basophils # (Manual) 0.0 K/mm3 (0.0-0.1) 11/10/20 13:46 Metamyelocytes # 0.0 K/mm3 11/10/20 13:46 Myelocytes # 0.0 K/mm3 11/10/20 13:46 Promyelocytes # 0.0 K/mm3 11/10/20 13:46 Blast Cells # 0.0 K/mm3 11/10/20 13:46 WBC Morphology Not Reportable 11/10/20 13:46 Hypersegmented Neuts Not Reportable 11/10/20 13:46 Hyposegmented Neuts Not Reportable 11/10/20 13:46 Hypogranular Neuts Not Reportable 11/10/20 13:46 Smudge Cells Not Reportable 11/10/20 13:46 Toxic Granulation Not Reportable 11/10/20 13:46 Toxic Vacuolation Not Reportable 11/10/20 13:46 Dohle Bodies Not Reportable 11/10/20 13:46 Pelger-Huet Anomaly Not Reportable 11/10/20 13:46 Kassi Rods Not Reportable 11/10/20 13:46 Platelet Estimate Not Reportable 11/10/20 13:46 Clumped Platelets Not Reportable 11/10/20 13:46 Plt Clumps, EDTA Not Reportable 11/10/20 13:46 Large Platelets Not Reportable 11/10/20 13:46 Giant Platelets Not Reportable 11/10/20 13:46 Platelet Satelliting Not Reportable 11/10/20 13:46 Plt Morphology Comment Not Reportable 11/10/20 13:46 RBC Morphology Not Reportable 11/10/20 13:46 Dimorphic RBCs Yes 11/10/20 13:46 Polychromasia Not Reportable 11/10/20 13:46 Hypochromasia Not Reportable 11/10/20 13:46 Poikilocytosis Not Reportable 11/10/20 13:46 Anisocytosis Not Reportable 11/10/20 13:46 Microcytosis Rare 11/10/20 13:46 Macrocytosis Rare 11/10/20 13:46 Spherocytes Not Reportable 11/10/20 13:46 Pappenheimer Bodies Not Reportable 11/10/20 13:46 Sickle Cells Not Reportable 11/10/20 13:46 Target Cells Not Reportable 11/10/20 13:46 Tear Drop Cells Not Reportable 11/10/20 13:46 Ovalocytes Not Reportable 11/10/20 13:46 Helmet Cells Not Reportable 11/10/20 13:46 [place] Bodies Not Reportable 11/10/20 13:46 [place] Rings Not Reportable 11/10/20 13:46 Rhea Cells Not Reportable 11/10/20 13:46 Bite Cells Not Reportable 11/10/20 13:46 Crenated Cell Not Reportable 11/10/20 13:46 Elliptocytes Not Reportable 11/10/20 13:46 Acanthocytes (Spur) Not Reportable 11/10/20 13:46 Rouleaux Not Reportable 11/10/20 13:46 Hemoglobin C Crystals Not Reportable 11/10/20 13:46 Schistocytes Not Reportable 11/10/20 13:46 Malaria parasites Not Reportable 11/10/20 13:46 Richard Bodies Not Reportable 11/10/20 13:46 Hem Pathologist Commnt No 11/10/20 13:46 PT 15.0 Sec. (12.2-14.9) H 11/11/20 14:38 INR 1.18 (0.87-1.13) H 11/11/20 14:38 APTT 27.9 Sec. (24.2-36.6) 10/26/20 17:25 Heparin Anti-Xa, Unfract Negative (Negative) 11/03/20 11:01 ABG pH 7.363 (7.320-7.450) 11/13/20 05:28 POC ABG pCO2 51.4 mmHg (32.0-48.0) H 11/13/20 05:28 ABG pCO2 35.4 mm Hg 11/07/20 12:55 POC ABG pO2 41.7 mmHg (83-108) L 11/13/20 05:28 ABG pO2 82.0 mm Hg (80.0-90.0) 11/07/20 12:55 POC ABG HCO3 28.6 11/13/20 05:28 ABG HCO3 23.4 mmol/L (20.0-26.0) 11/07/20 12:55 ABG O2 Saturation 73 (0-100) 11/13/20 05:28 ABG O2 Content 10.5 (0.0-44) 11/07/20 12:55 POC ABG Base Excess 2.6 11/13/20 05:28 ABG Base Excess -0.5 mmol/L (-2.0-3.0) 11/07/20 12:55 ABG Hemoglobin 9.1 (12.0-17.5) L 11/13/20 05:28 ABG Oxyhemoglobin 72.2 (94-98) L 11/13/20 05:28 ABG Carboxyhemoglobin 1.4 % (0.0-5.0) 11/07/20 12:55 ABG Methemoglobin 0.3 (0.0-1.5) 11/13/20 05:28 ABG Sodium 151.1 mmol/L (136.0-145.0) H 11/13/20 05:28 ABG Potassium 3.2 mmol/L (3.40-4.50) L 11/13/20 05:28 ABG Chloride 122.0 mmol/L (98-107) H 11/13/20 05:28 ABG Glucose 191 mg/dL (65-95) H 11/13/20 05:28 Oxyhemoglobin 94.9 % (95.0-99.0) L 11/07/20 12:55 Carboxyhemoglobin 0.8 (0.5-1.5) 11/13/20 05:28 FiO2 30 % 11/07/20 12:55 FiO2 % 100 11/13/20 05:28 Sodium 154 mmol/L (137-145) H 11/12/20 08:33 Potassium 2.9 mmol/L (3.6-5.0) L* 11/12/20 08:33 Chloride 121.4 mmol/L (98-107) H 11/12/20 08:33 Carbon Dioxide 25 mmol/L (22-30) 11/12/20 08:33 Anion Gap 11 mmol/L 11/12/20 08:33 BUN 26 mg/dL (9-20) H 11/12/20 08:33 Creatinine 0.4 mg/dL (0.8-1.3) L 11/12/20 08:33 Estimated GFR > 60 ml/min 11/12/20 08:33 BUN/Creatinine Ratio 65 % 11/12/20 08:33 Glucose 153 mg/dL (75-100) H 11/12/20 08:33 POC Glucose 86 mg/dL (70-105) 11/13/20 05:30 Hemoglobin A1c 5.5 % (4-6) 10/27/20 04:42 Lactic Acid 4.30 mmol/L (0.7-2.0) H* 10/31/20 Unknown Calcium 7.3 mg/dL (8.4-10.2) L 11/12/20 08:33 Phosphorus 4.50 mg/dL (2.5-4.5) D 11/06/20 13:03 Magnesium 1.80 mg/dL (1.7-2.3) 11/07/20 16:45 Total Bilirubin < 0.20 mg/dL (0.1-1.2) 11/06/20 06:45 AST 23 units/L (5-40) 11/06/20 06:45 ALT 20 units/L (7-56) 11/06/20 06:45 Alkaline Phosphatase 117 units/L (35-129) 11/06/20 06:45 Total Creatine Kinase 31 units/L (55-170) L 10/26/20 17:28 Troponin T 0.062 ng/mL (0.00-0.029) H 10/26/20 17:25 Total Protein 5.0 g/dL (6.3-8.2) L 11/06/20 06:45 Albumin 1.4 g/dL (3.9-5) L 11/06/20 06:45 Albumin/Globulin Ratio 0.4 % 11/06/20 06:45 Triglycerides 190 mg/dL (2-149) H 10/26/20 17:25 Cholesterol 92 mg/dL (50-199) 10/26/20 17:25 LDL Cholesterol Direct 33 mg/dL (50-130) L 10/26/20 17:25 HDL Cholesterol 18 mg/dL (40-59) L 10/26/20 17:25 Cholesterol/HDL Ratio 5.11 % 10/26/20 17:25 TSH 1.490 mlU/mL (0.270-4.200) 10/26/20 17:28 Arterial Blood Glucose 191 mg/dL (65-95) H 11/13/20 05:28 Arterial Blood Ionized Calcium 4.7 mg/dL (4.6-5.3) 11/13/20 05:28 Urine Color Yellow (Yellow) 10/27/20 Unknown Urine Turbidity Turbid (Clear) 10/27/20 Unknown Urine pH 8.0 (5.0-7.0) H 10/27/20 Unknown Ur Specific Ad[place] 1.020 (1.003-1.030) 10/27/20 Unknown Urine Protein >500 mg/dL (Negative) 10/27/20 Unknown Urine Glucose (UA) Neg mg/dL (Negative) 10/27/20 Unknown Urine Ketones Neg mg/dL (Negative) 10/27/20 Unknown Urine Blood Sm (Negative) 10/27/20 Unknown Urine Nitrite Neg (Negative) 10/27/20 Unknown Urine Bilirubin Neg (Negative) 10/27/20 Unknown Urine Urobilinogen < 2.0 mg/dL (<2.0) 10/27/20 Unknown Ur Leukocyte Esterase Mod (Negative) 10/27/20 Unknown Urine WBC (Auto) > 182.0 /HPF (0.0-6.0) H 10/27/20 Unknown Urine RBC (Auto) 35.0 /HPF (0.0-6.0) 10/27/20 Unknown Urine WBC Clumps 3+ /HPF 10/27/20 Unknown Urine Mucus 3+ /HPF 10/27/20 Unknown Urine Yeast (Budding) 3+ /HPF 10/27/20 Unknown Vancomycin Trough 22.0 ug/mL (5.0-20.0) H 10/30/20 Unknown Salicylates < 0.3 mg/dL (2.8-20.0) L 10/26/20 17:28 Acetaminophen 5.0 ug/mL (10.0-30.0) L 10/26/20 17:28 Heparin-induced Plt Ab Negative (Negative) 11/03/20 11:01 UF Heparin High Dose 0 % Release 11/03/20 11:01 MOISES UFH Low Dose 0.1 2 % Release 11/03/20 11:01 MOISES UFH Low Dose 0.5 0 % Release 11/03/20 11:01 Coronavirus (PCR) Negative (Negative) 10/27/20 Unknown Blood Type O POSITIVE 10/30/20 09:30 Antibody Screen Negative 10/30/20 09:30 Crossmatch See Detail 10/30/20 09:30 Rivas/IV: Voiding Method Incontinent Active Medications - Current Medications Current Medications: Generic Name Dose Route Start Last Admin Trade Name Freq PRN Reason Stop Dose Admin Acetaminophen 650 mg 10/26/20 22:22 11/12/20 06:13 Acetaminophen 325 Mg Tab PO 650 mg Q4H PRN Administration Pain MILD(1-3)/Fever >100.5/TIERNEY Albuterol 2.5 mg 11/11/20 14:00 11/12/20 20:21 Albuterol 2.5 Mg/3 Ml Nebu IH 2.5 mg TIDRT MARSHALL Administration Amiodarone HCl 200 mg 11/08/20 10:00 11/12/20 09:16 Amiodarone 200 Mg Tab PO 200 mg DAILY MARSHALL Administration Lipase/Protease/Amylase 1 each 10/28/20 13:18 Lipase 10,500/Protease 25,000/Amylase 43,750 (Units) Dr Cap FEEDTUBE PRN PRN For Clogged Feeding Tube Enoxaparin Sodium 40 mg 11/07/20 10:00 11/12/20 09:16 Enoxaparin 40 Mg/0.4 Ml Inj SUB-Q 40 mg QDAY@1000 MARSHALL Administration Famotidine 20 mg 11/11/20 10:00 11/12/20 21:45 Famotidine 20 Mg Tab PO 20 mg BID MARSHALL Administration Midodrine 10 mg 11/06/20 12:00 11/12/20 15:06 Midodrine 5 Mg Tab PO 10 mg TID@0800,1200,1600 MARSHALL Administration Ondansetron HCl 4 mg 10/26/20 22:22 Ondansetron 4 Mg/2 Ml Inj IV Q8H PRN Nausea And Vomiting Simple Syrup 15 ml 10/28/20 13:18 11/10/20 16:01 Simple Syrup 15 Ml FEEDTUBE 15 ml PRN PRN Administration Hypoglycemia Simple Syrup 30 ml 10/28/20 13:18 Simple Syrup 15 Ml FEEDTUBE PRN PRN Hypoglycemia Sodium Bicarbonate 325 mg 10/28/20 13:18 Sodium Bicarbonate 325 Mg Tab FEEDTUBE PRN PRN For Clogged Feeding Tube Sodium Chloride 10 ml 10/27/20 10:00 11/12/20 21:45 Sodium Chloride 0.9% 10 Ml Flush Syringe IV 10 ml BID MARSHALL Administration Sodium Chloride 10 ml 10/26/20 22:22 Sodium Chloride 0.9% 10 Ml Flush Syringe IV PRN PRN LINE FLUSH Sodium Hypochlorite 1 applic 10/28/20 10:00 11/12/20 21:44 Sodium Hypochlorite, Dakin's 1/2 Strength (0.25%) 473 Ml Topical Soln TP 1 applicatio BID MARSHALL Administration Vancomycin HCl 125 mg 11/05/20 18:00 11/13/20 05:59 Vancomycin 250 Mg/10 Ml Oral Liqd PO 11/15/20 12:01 125 mg Q6HR MARSHALL Administration Protocol Nutrition/Malnutrition Assess - Dietary Evaluation Nutrition/Malnutrition Findings: Nutrition Notes Start: 10/27/20 09: 15 Freq: Status: Active Protocol: Document 11/11/20 15:01 CW (Rec: 11/11/20 15:09 CW [id number]) Nutrition Notes Initial or Follow up Reassessment Current Diagnosis Acute Kidney Injury,Decubitus( Pressure Ulcer),Sepsis, Hypertension,Respiratory Failure,Hyperlipidemia Other Pertinent Diagnosis AMS, MRSA, Encephalopathy, Metabiloc Acidosis, pneu ,FTT Current Diet Vital HP at 80 ml/hr Labs/Tests Na 153 BUN 27 Pertinent Medications Flagyl Height 6 ft 2 in Weight 136 kg [place] Body Weight (kg) 86.36 BMI 38.5 Weight change and time frame Weight stable at this time Weight Status Obese Subjective/Other Information F/U for tolerance. TF continues to run at goal and flush is 150ml q4h. Will increase to 250 ml q4h d/t hypernatremia. Pt tolerating TF well. Diarrhea likely r/t antibiotics. Pt has been extubated but per [employer], pt remains at risk for aspiration . Will change TF formula d/t no longer on mechanical vent Percent of energy/protein needs met: 100%/100% Burn Absent Trauma Absent GI Symptoms Diarrhea Difficulty In Swallowing,Chewing Skin Integrity/Comment Multiple pressure ulcer,1 infected Current % PO Negligible Minimum of two criteria No Fluid Accumulation Moderate to Severe (severe) #2 Nutrition Diagnosis Increased nutrient needs ( specify in comment below) Diagnosis Progress(for reassessment Continues documentation) #1 Nutrition Diagnosis Inadequate oral intake As Evidenced by Signs and Symptoms pt extubated but still at high aspiration risk Diagnosis Progress(for reassessment Continues documentation) Is patient on ventilator? Yes Is Patient Ambulatory and/or Out of Bed No REE-([facility] [place]-confined to bed) 2597.364 Kcal/Kg value to use for calculation 14 Approximate Energy Requirements Using 1904 kcal/Kg Calculation Used for Recommendations Kcal/kg Additional Notes protein needs: 133 - 167g(1.2 - 1.5 g/kgAdBW 111) Fluid needs 1 ml/kcal Nutrition Intervention Change Diet Order: Change TF regimen Nutrition Support: Promote at 80 ml/hr with a free water flush of 250 ml q4h for hypernatremia, once resolved resume flush of 50 ml q4h Kcal 1,920 Protein (gm) 120 Fluid (mL) 1,611 Goal #1 TF tolerance Goal #2 Meet at least 75% EER and protein needs via TF Goal #3 wound healing Anticipated Discharge Needs: unable to determine at this time Follow-Up By: 11/13/20 Additional Comments F/U [id number]
--- NOTE | 2020-11-13 09:19 | Progress Note ---
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 ABG Potassium ABG Chloride ABG Glucose Oxyhemoglobin Carboxyhemoglobin Sodium Potassium Chloride Carbon Dioxide BUN Creatinine Glucose POC Glucose 139 H 139 H 161 H Lactic Acid Calcium Phosphorus Magnesium Total Creatine Kinase Troponin T Total Protein Albumin Triglycerides LDL Cholesterol Direct HDL Cholesterol Arterial Blood Glucose Arterial Blood Ionized Calcium Urine pH Urine WBC (Auto) Vancomycin Trough Salicylates Acetaminophen Crossmatch 11/01/20 11/01/20 11/02/20 23:20 Unknown 04:30 WBC 18.2 H RBC 3.27 L Hgb 9.9 L Hct 30.1 L D MCV MCHC RDW 15.7 H Plt Count 34 L Lymph % (Auto) Seg Neutrophils % Seg Neuts % (Manual) Lymphocytes % (Manual) Nucleated RBC % Seg Neutrophils # Seg Neutrophils # Man Lymphocytes # (Manual) Monocytes # (Manual) PT INR ABG pH 7.456 H POC ABG pCO2 POC ABG pO2 ABG pO2 ABG HCO3 ABG O2 Saturation ABG Base Excess ABG Hemoglobin 9.2 L ABG Oxyhemoglobin ABG Sodium ABG Potassium ABG Chloride ABG Glucose Oxyhemoglobin Carboxyhemoglobin Sodium Potassium Chloride Carbon Dioxide BUN Creatinine Glucose POC Glucose 168 H Lactic Acid Calcium Phosphorus Magnesium Total Creatine Kinase Troponin T Total Protein Albumin Triglycerides LDL Cholesterol Direct HDL Cholesterol Arterial Blood Glucose Arterial Blood Ionized Calcium Urine pH Urine WBC (Auto) Vancomycin Trough Salicylates Acetaminophen Crossmatch 11/02/20 11/02/20 11/02/20 06:29 08:40 08:40 WBC 16.6 H RBC 2.87 L Hgb 8.8 L Hct 26.6 L MCV MCHC RDW 15.8 H Plt Count 30 L Lymph % (Auto) Seg Neutrophils % Seg Neuts % (Manual) 97.0 H Lymphocytes % (Manual) 2.0 L Nucleated RBC % 1.0 H Seg Neutrophils # Seg Neutrophils # Man 16.1 H Lymphocytes # (Manual) 0.3 L Monocytes # (Manual) PT INR ABG pH POC ABG pCO2 POC ABG pO2 ABG pO2 ABG HCO3 ABG O2 Saturation ABG Base Excess ABG Hemoglobin ABG Oxyhemoglobin ABG Sodium ABG Potassium ABG Chloride ABG Glucose Oxyhemoglobin Carboxyhemoglobin Sodium Potassium 2.4 L* D Chloride 110.2 H Carbon Dioxide BUN 23 H Creatinine 0.4 L Glucose 154 H POC Glucose 131 H Lactic Acid Calcium 6.1 L Phosphorus Magnesium 1.50 L Total Creatine Kinase Troponin T Total Protein Albumin Triglycerides LDL Cholesterol Direct HDL Cholesterol Arterial Blood Glucose Arterial Blood Ionized Calcium Urine pH Urine WBC (Auto) Vancomycin Trough Salicylates Acetaminophen Crossmatch 11/02/20 11/02/20 11/02/20 13:17 17:25 18:05 WBC RBC Hgb Hct MCV MCHC RDW Plt Count Lymph % (Auto) Seg Neutrophils % Seg Neuts % (Manual) Lymphocytes % (Manual) Nucleated RBC % Seg Neutrophils # Seg Neutrophils # Man Lymphocytes # (Manual) Monocytes # (Manual) PT INR ABG pH POC ABG pCO2 POC ABG pO2 ABG pO2 ABG HCO3 ABG O2 Saturation ABG Base Excess ABG Hemoglobin ABG Oxyhemoglobin ABG Sodium ABG Potassium ABG Chloride ABG Glucose Oxyhemoglobin Carboxyhemoglobin Sodium Potassium 3.1 L D Chloride Carbon Dioxide BUN Creatinine Glucose POC Glucose 134 H 140 H Lactic Acid Calcium Phosphorus Magnesium Total Creatine Kinase Troponin T Total Protein Albumin Triglycerides LDL Cholesterol Direct HDL Cholesterol Arterial Blood Glucose Arterial Blood Ionized Calcium Urine pH Urine WBC (Auto) Vancomycin Trough Salicylates Acetaminophen Crossmatch 11/02/20 11/03/20 11/03/20 23:36 04:15 05:07 WBC RBC Hgb Hct MCV MCHC RDW Plt Count Lymph % (Auto) Seg Neutrophils % Seg Neuts % (Manual) Lymphocytes % (Manual) Nucleated RBC % Seg Neutrophils # Seg Neutrophils # Man Lymphocytes # (Manual) Monocytes # (Manual) PT INR ABG pH POC ABG pCO2 POC ABG pO2 ABG pO2 ABG HCO3 ABG O2 Saturation ABG Base Excess ABG Hemoglobin ABG Oxyhemoglobin ABG Sodium ABG Potassium ABG Chloride ABG Glucose Oxyhemoglobin Carboxyhemoglobin Sodium Potassium 3.0 L Chloride 111.8 H Carbon Dioxide BUN 24 H Creatinine 0.3 L Glucose 141 H POC Glucose 127 H 156 H Lactic Acid Calcium 5.8 L* Phosphorus Magnesium 1.60 L Total Creatine Kinase Troponin T Total Protein Albumin Triglycerides LDL Cholesterol Direct HDL Cholesterol Arterial Blood Glucose Arterial Blood Ionized Calcium Urine pH Urine WBC (Auto) Vancomycin Trough Salicylates Acetaminophen Crossmatch 11/03/20 11/03/20 11/04/20 11:14 17:31 00:17 WBC RBC Hgb Hct MCV MCHC RDW Plt Count Lymph % (Auto) Seg Neutrophils % Seg Neuts % (Manual) Lymphocytes % (Manual) Nucleated RBC % Seg Neutrophils # Seg Neutrophils # Man Lymphocytes # (Manual) Monocytes # (Manual) PT INR ABG pH POC ABG pCO2 POC ABG pO2 ABG pO2 ABG HCO3 ABG O2 Saturation ABG Base Excess ABG Hemoglobin ABG Oxyhemoglobin ABG Sodium ABG Potassium ABG Chloride ABG Glucose Oxyhemoglobin Carboxyhemoglobin Sodium Potassium Chloride Carbon Dioxide BUN Creatinine Glucose POC Glucose 137 H 151 H 156 H Lactic Acid Calcium Phosphorus Magnesium Total Creatine Kinase Troponin T Total Protein Albumin Triglycerides LDL Cholesterol Direct HDL Cholesterol Arterial Blood Glucose Arterial Blood Ionized Calcium Urine pH Urine WBC (Auto) Vancomycin Trough Salicylates Acetaminophen Crossmatch 11/04/20 11/04/20 11/04/20 05:34 05:34 11:16 WBC 21.9 H RBC 2.67 L Hgb 8.2 L Hct 24.8 L MCV MCHC RDW 15.6 H Plt Count 48 L Lymph % (Auto) Seg Neutrophils % Seg Neuts % (Manual) Lymphocytes % (Manual) Nucleated RBC % Seg Neutrophils # Seg Neutrophils # Man Lymphocytes # (Manual) Monocytes # (Manual) PT INR ABG pH POC ABG pCO2 POC ABG pO2 ABG pO2 ABG HCO3 ABG O2 Saturation ABG Base Excess ABG Hemoglobin ABG Oxyhemoglobin ABG Sodium ABG Potassium ABG Chloride ABG Glucose Oxyhemoglobin Carboxyhemoglobin Sodium 146 H Potassium Chloride 114.6 H Carbon Dioxide BUN 29 H Creatinine 0.3 L Glucose 173 H POC Glucose 156 H Lactic Acid Calcium 5.7 L* Phosphorus Magnesium Total Creatine Kinase Troponin T Total Protein Albumin Triglycerides LDL Cholesterol Direct HDL Cholesterol Arterial Blood Glucose Arterial Blood Ionized Calcium Urine pH Urine WBC (Auto) Vancomycin Trough Salicylates Acetaminophen Crossmatch 11/04/20 11/04/20 11/04/20 11:42 17:18 23:12 WBC RBC Hgb Hct MCV MCHC RDW Plt Count Lymph % (Auto) Seg Neutrophils % Seg Neuts % (Manual) Lymphocytes % (Manual) Nucleated RBC % Seg Neutrophils # Seg Neutrophils # Man Lymphocytes # (Manual) Monocytes # (Manual) PT INR ABG pH 7.525 H POC ABG pCO2 28.9 L POC ABG pO2 64.3 L ABG pO2 ABG HCO3 ABG O2 Saturation ABG Base Excess ABG Hemoglobin 8.2 L ABG Oxyhemoglobin ABG Sodium ABG Potassium 3.3 L ABG Chloride 115.0 H ABG Glucose 165 H Oxyhemoglobin Carboxyhemoglobin Sodium Potassium Chloride Carbon Dioxide BUN Creatinine Glucose POC Glucose 144 H 155 H Lactic Acid Calcium Phosphorus Magnesium Total Creatine Kinase Troponin T Total Protein Albumin Triglycerides LDL Cholesterol Direct HDL Cholesterol Arterial Blood Glucose 165 H Arterial Blood Ionized Calcium 4.0 L Urine pH Urine WBC (Auto) Vancomycin Trough Salicylates Acetaminophen Crossmatch 11/05/20 11/05/20 11/05/20 04:48 04:48 05:57 WBC 17.4 H RBC 2.49 L Hgb 7.8 L Hct 23.5 L MCV MCHC RDW 16.0 H Plt Count 69 L Lymph % (Auto) Seg Neutrophils % Seg Neuts % (Manual) Lymphocytes % (Manual) Nucleated RBC % Seg Neutrophils # Seg Neutrophils # Man Lymphocytes # (Manual) Monocytes # (Manual) PT INR ABG pH POC ABG pCO2 POC ABG pO2 ABG pO2 ABG HCO3 ABG O2 Saturation ABG Base Excess ABG Hemoglobin ABG Oxyhemoglobin ABG Sodium ABG Potassium ABG Chloride ABG Glucose Oxyhemoglobin Carboxyhemoglobin Sodium 147 H Potassium 3.5 L Chloride 115.4 H Carbon Dioxide BUN 34 H Creatinine 0.3 L Glucose 154 H POC Glucose 146 H Lactic Acid Calcium 6.1 L Phosphorus 2.00 L Magnesium Total Creatine Kinase Troponin T Total Protein Albumin Triglycerides LDL Cholesterol Direct HDL Cholesterol Arterial Blood Glucose Arterial Blood Ionized Calcium Urine pH Urine WBC (Auto) Vancomycin Trough Salicylates Acetaminophen Crossmatch 11/05/20 11/05/20 11/05/20 11:33 17:52 23:37 WBC RBC Hgb Hct MCV MCHC RDW Plt Count Lymph % (Auto) Seg Neutrophils % Seg Neuts % (Manual) Lymphocytes % (Manual) Nucleated RBC % Seg Neutrophils # Seg Neutrophils # Man Lymphocytes # (Manual) Monocytes # (Manual) PT INR ABG pH POC ABG pCO2 POC ABG pO2 ABG pO2 ABG HCO3 ABG O2 Saturation ABG Base Excess ABG Hemoglobin ABG Oxyhemoglobin ABG Sodium ABG Potassium ABG Chloride ABG Glucose Oxyhemoglobin Carboxyhemoglobin Sodium Potassium Chloride Carbon Dioxide BUN Creatinine Glucose POC Glucose 144 H 136 H 151 H Lactic Acid Calcium Phosphorus Magnesium Total Creatine Kinase Troponin T Total Protein Albumin Triglycerides LDL Cholesterol Direct HDL Cholesterol Arterial Blood Glucose Arterial Blood Ionized Calcium Urine pH Urine WBC (Auto) Vancomycin Trough Salicylates Acetaminophen Crossmatch 11/06/20 11/06/20 11/06/20 05:36 06:45 06:45 WBC 15.0 H RBC 2.33 L Hgb 7.2 L Hct 22.1 L MCV 95 H MCHC RDW 16.2 H Plt Count 103 L Lymph % (Auto) Seg Neutrophils % Seg Neuts % (Manual) Lymphocytes % (Manual) Nucleated RBC % Seg Neutrophils # Seg Neutrophils # Man Lymphocytes # (Manual) Monocytes # (Manual) PT INR ABG pH POC ABG pCO2 POC ABG pO2 ABG pO2 ABG HCO3 ABG O2 Saturation ABG Base Excess ABG Hemoglobin ABG Oxyhemoglobin ABG Sodium ABG Potassium ABG Chloride ABG Glucose Oxyhemoglobin Carboxyhemoglobin Sodium 148 H Potassium Chloride 118.2 H Carbon Dioxide BUN 32 H Creatinine 0.4 L Glucose 153 H POC Glucose 140 H Lactic Acid Calcium 6.4 L Phosphorus 0.90 L* D Magnesium Total Creatine Kinase Troponin T Total Protein 5.0 L Albumin 1.4 L Triglycerides LDL Cholesterol Direct HDL Cholesterol Arterial Blood Glucose Arterial Blood Ionized Calcium Urine pH Urine WBC (Auto) Vancomycin Trough Salicylates Acetaminophen Crossmatch 11/06/20 11/06/20 11/06/20 11:32 17:37 23:19 WBC RBC Hgb Hct MCV MCHC RDW Plt Count Lymph % (Auto) Seg Neutrophils % Seg Neuts % (Manual) Lymphocytes % (Manual) Nucleated RBC % Seg Neutrophils # Seg Neutrophils # Man Lymphocytes # (Manual) Monocytes # (Manual) PT INR ABG pH POC ABG pCO2 POC ABG pO2 ABG pO2 ABG HCO3 ABG O2 Saturation ABG Base Excess ABG Hemoglobin ABG Oxyhemoglobin ABG Sodium ABG Potassium ABG Chloride ABG Glucose Oxyhemoglobin Carboxyhemoglobin Sodium Potassium Chloride Carbon Dioxide BUN Creatinine Glucose POC Glucose 132 H 133 H 145 H Lactic Acid Calcium Phosphorus Magnesium Total Creatine Kinase Troponin T Total Protein Albumin Triglycerides LDL Cholesterol Direct HDL Cholesterol Arterial Blood Glucose Arterial Blood Ionized Calcium Urine pH Urine WBC (Auto) Vancomycin Trough Salicylates Acetaminophen Crossmatch 11/07/20 11/07/20 11/07/20 12:55 16:45 16:45 WBC 12.0 H RBC 3.63 L Hgb 11.4 L D Hct MCV 104 H MCHC 30 L RDW 18.0 H Plt Count 133 L Lymph % (Auto) Seg Neutrophils % Seg Neuts % (Manual) Lymphocytes % (Manual) Nucleated RBC % Seg Neutrophils # Seg Neutrophils # Man Lymphocytes # (Manual) Monocytes # (Manual) PT INR ABG pH POC ABG pCO2 POC ABG pO2 ABG pO2 ABG HCO3 ABG O2 Saturation ABG Base Excess ABG Hemoglobin 7.7 L ABG Oxyhemoglobin ABG Sodium ABG Potassium ABG Chloride ABG Glucose Oxyhemoglobin 94.9 L Carboxyhemoglobin Sodium 149 H Potassium Chloride 119.8 H Carbon Dioxide BUN 31 H Creatinine 0.4 L Glucose 130 H POC Glucose Lactic Acid Calcium 6.5 L Phosphorus Magnesium Total Creatine Kinase Troponin T Total Protein Albumin Triglycerides LDL Cholesterol Direct HDL Cholesterol Arterial Blood Glucose Arterial Blood Ionized Calcium Urine pH Urine WBC (Auto) Vancomycin Trough Salicylates Acetaminophen Crossmatch 11/07/20 11/08/20 11/08/20 17:23 00:12 06:11 WBC RBC Hgb Hct MCV MCHC RDW Plt Count Lymph % (Auto) Seg Neutrophils % Seg Neuts % (Manual) Lymphocytes % (Manual) Nucleated RBC % Seg Neutrophils # Seg Neutrophils # Man Lymphocytes # (Manual) Monocytes # (Manual) PT INR ABG pH POC ABG pCO2 POC ABG pO2 ABG pO2 ABG HCO3 ABG O2 Saturation ABG Base Excess ABG Hemoglobin ABG Oxyhemoglobin ABG Sodium ABG Potassium ABG Chloride ABG Glucose Oxyhemoglobin Carboxyhemoglobin Sodium Potassium Chloride Carbon Dioxide BUN Creatinine Glucose POC Glucose 115 H 129 H 109 H Lactic Acid Calcium Phosphorus Magnesium Total Creatine Kinase Troponin T Total Protein Albumin Triglycerides LDL Cholesterol Direct HDL Cholesterol Arterial Blood Glucose Arterial Blood Ionized Calcium Urine pH Urine WBC (Auto) Vancomycin Trough Salicylates Acetaminophen Crossmatch 11/08/20 11/08/20 11/08/20 17:36 23:49 23:58 WBC RBC Hgb Hct MCV MCHC RDW Plt Count Lymph % (Auto) Seg Neutrophils % Seg Neuts % (Manual) Lymphocytes % (Manual) Nucleated RBC % Seg Neutrophils # Seg Neutrophils # Man Lymphocytes # (Manual) Monocytes # (Manual) PT INR ABG pH POC ABG pCO2 POC ABG pO2 ABG pO2 ABG HCO3 ABG O2 Saturation ABG Base Excess ABG Hemoglobin ABG Oxyhemoglobin ABG Sodium ABG Potassium ABG Chloride ABG Glucose Oxyhemoglobin Carboxyhemoglobin Sodium Potassium Chloride Carbon Dioxide BUN Creatinine Glucose 138 H POC Glucose 38 L 36 L Lactic Acid Calcium Phosphorus Magnesium Total Creatine Kinase Troponin T Total Protein Albumin Triglycerides LDL Cholesterol Direct HDL Cholesterol Arterial Blood Glucose Arterial Blood Ionized Calcium Urine pH Urine WBC (Auto) Vancomycin Trough Salicylates Acetaminophen Crossmatch 11/09/20 11/09/20 11/09/20 05:33 06:00 06:00 WBC 13.1 H RBC 2.35 L Hgb 7.6 L D Hct 22.9 L D MCV 97 H MCHC RDW 16.8 H Plt Count Lymph % (Auto) 9.1 L Seg Neutrophils % 84.8 H Seg Neuts % (Manual) Lymphocytes % (Manual) Nucleated RBC % Seg Neutrophils # 11.1 H Seg Neutrophils # Man Lymphocytes # (Manual) Monocytes # (Manual) PT INR ABG pH POC ABG pCO2 POC ABG pO2 ABG pO2 ABG HCO3 ABG O2 Saturation ABG Base Excess ABG Hemoglobin ABG Oxyhemoglobin ABG Sodium ABG Potassium ABG Chloride ABG Glucose Oxyhemoglobin Carboxyhemoglobin Sodium 150 H Potassium 3.4 L D Chloride 119.2 H Carbon Dioxide BUN 30 H Creatinine 0.4 L Glucose 137 H POC Glucose 58 L Lactic Acid Calcium 7.2 L Phosphorus Magnesium Total Creatine Kinase Troponin T Total Protein Albumin Triglycerides LDL Cholesterol Direct HDL Cholesterol Arterial Blood Glucose Arterial Blood Ionized Calcium Urine pH Urine WBC (Auto) Vancomycin Trough Salicylates Acetaminophen Crossmatch 11/09/20 11/09/20 11/10/20 06:08 22:16 13:46 WBC 16.1 H RBC 2.52 L Hgb 8.1 L Hct 25.2 L MCV 100 H MCHC RDW 18.2 H Plt Count Lymph % (Auto) Seg Neutrophils % Seg Neuts % (Manual) 90.0 H Lymphocytes % (Manual) 3.0 L Nucleated RBC % Seg Neutrophils # Seg Neutrophils # Man 14.5 H Lymphocytes # (Manual) 0.5 L Monocytes # (Manual) 1.1 H PT INR ABG pH POC ABG pCO2 POC ABG pO2 ABG pO2 ABG HCO3 ABG O2 Saturation ABG Base Excess ABG Hemoglobin ABG Oxyhemoglobin ABG Sodium ABG Potassium ABG Chloride ABG Glucose Oxyhemoglobin Carboxyhemoglobin Sodium Potassium Chloride Carbon Dioxide BUN Creatinine Glucose POC Glucose 122 H 120 H Lactic Acid Calcium Phosphorus Magnesium Total Creatine Kinase Troponin T Total Protein Albumin Triglycerides LDL Cholesterol Direct HDL Cholesterol Arterial Blood Glucose Arterial Blood Ionized Calcium Urine pH Urine WBC (Auto) Vancomycin Trough Salicylates Acetaminophen Crossmatch 11/10/20 11/10/20 11/11/20 13:46 15:59 11:43 WBC RBC Hgb Hct MCV MCHC RDW Plt Count Lymph % (Auto) Seg Neutrophils % Seg Neuts % (Manual) Lymphocytes % (Manual) Nucleated RBC % Seg Neutrophils # Seg Neutrophils # Man Lymphocytes # (Manual) Monocytes # (Manual) PT INR ABG pH POC ABG pCO2 POC ABG pO2 ABG pO2 ABG HCO3 ABG O2 Saturation ABG Base Excess ABG Hemoglobin ABG Oxyhemoglobin ABG Sodium ABG Potassium ABG Chloride ABG Glucose Oxyhemoglobin Carboxyhemoglobin Sodium 153 H Potassium Chloride 120.6 H Carbon Dioxide BUN 27 H Creatinine 0.3 L Glucose 112 H POC Glucose 40 L 124 H Lactic Acid Calcium 6.8 L Phosphorus Magnesium Total Creatine Kinase Troponin T Total Protein Albumin Triglycerides LDL Cholesterol Direct HDL Cholesterol Arterial Blood Glucose Arterial Blood Ionized Calcium Urine pH Urine WBC (Auto) Vancomycin Trough Salicylates Acetaminophen Crossmatch 11/11/20 11/11/2011/11/21 14:38 14:38 14:38 WBC 13.8 H RBC 2.43 L Hgb 7.6 L Hct 24.0 L MCV 99 H MCHC RDW 18.0 H Plt Count Lymph % (Auto) Seg Neutrophils % Seg Neuts % (Manual) Lymphocytes % (Manual) Nucleated RBC % Seg Neutrophils # Seg Neutrophils # Man Lymphocytes # (Manual) Monocytes # (Manual) PT 15.0 H INR 1.18 H ABG pH POC ABG pCO2 POC ABG pO2 ABG pO2 ABG HCO3 ABG O2 Saturation ABG Base Excess ABG Hemoglobin ABG Oxyhemoglobin ABG Sodium ABG Potassium ABG Chloride ABG Glucose Oxyhemoglobin Carboxyhemoglobin Sodium 154 H Potassium 3.1 L D Chloride 122.1 H Carbon Dioxide BUN 26 H Creatinine 0.4 L Glucose 140 H POC Glucose Lactic Acid Calcium 7.3 L Phosphorus Magnesium Total Creatine Kinase Troponin T Total Protein Albumin Triglycerides LDL Cholesterol Direct HDL Cholesterol Arterial Blood Glucose Arterial Blood Ionized Calcium Urine pH Urine WBC (Auto) Vancomycin Trough Salicylates Acetaminophen Crossmatch 11/11/20 11/11/20 11/12/20 18:39 18:42 00:03 WBC RBC Hgb Hct MCV MCHC RDW Plt Count Lymph % (Auto) Seg Neutrophils % Seg Neuts % (Manual) Lymphocytes % (Manual) Nucleated RBC % Seg Neutrophils # Seg Neutrophils # Man Lymphocytes # (Manual) Monocytes # (Manual) PT INR ABG pH POC ABG pCO2 POC ABG pO2 ABG pO2 ABG HCO3 ABG O2 Saturation ABG Base Excess ABG Hemoglobin ABG Oxyhemoglobin ABG Sodium ABG Potassium ABG Chloride ABG Glucose Oxyhemoglobin Carboxyhemoglobin Sodium Potassium Chloride Carbon Dioxide BUN Creatinine Glucose POC Glucose 45 L 66 L 108 H Lactic Acid Calcium Phosphorus Magnesium Total Creatine Kinase Troponin T Total Protein Albumin Triglycerides LDL Cholesterol Direct HDL Cholesterol Arterial Blood Glucose Arterial Blood Ionized Calcium Urine pH Urine WBC (Auto) Vancomycin Trough Salicylates Acetaminophen Crossmatch 11/12/20 11/12/20 11/12/20 05:44 08:33 08:33 WBC 13.4 H RBC 2.35 L Hgb 7.5 L Hct 23.7 L MCV 101 H MCHC RDW 19.7 H Plt Count Lymph % (Auto) Seg Neutrophils % Seg Neuts % (Manual) Lymphocytes % (Manual) Nucleated RBC % Seg Neutrophils # Seg Neutrophils # Man Lymphocytes # (Manual) Monocytes # (Manual) PT INR ABG pH POC ABG pCO2 POC ABG pO2 ABG pO2 ABG HCO3 ABG O2 Saturation ABG Base Excess ABG Hemoglobin ABG Oxyhemoglobin ABG Sodium ABG Potassium ABG Chloride ABG Glucose Oxyhemoglobin Carboxyhemoglobin Sodium 154 H Potassium 2.9 L* Chloride 121.4 H Carbon Dioxide BUN 26 H Creatinine 0.4 L Glucose 153 H POC Glucose 114 H Lactic Acid Calcium 7.3 L Phosphorus Magnesium Total Creatine Kinase Troponin T Total Protein Albumin Triglycerides LDL Cholesterol Direct HDL Cholesterol Arterial Blood Glucose Arterial Blood Ionized Calcium Urine pH Urine WBC (Auto) Vancomycin Trough Salicylates Acetaminophen Crossmatch 11/12/20 11/12/20 11/13/20 11:38 17:17 05:28 WBC RBC Hgb Hct MCV MCHC RDW Plt Count Lymph % (Auto) Seg Neutrophils % Seg Neuts % (Manual) Lymphocytes % (Manual) Nucleated RBC % Seg Neutrophils # Seg Neutrophils # Man Lymphocytes # (Manual) Monocytes # (Manual) PT INR ABG pH POC ABG pCO2 51.4 H POC ABG pO2 41.7 L ABG pO2 ABG HCO3 ABG O2 Saturation ABG Base Excess ABG Hemoglobin 9.1 L ABG Oxyhemoglobin 72.2 L ABG Sodium 151.1 H ABG Potassium 3.2 L ABG Chloride 122.0 H ABG Glucose 191 H Oxyhemoglobin Carboxyhemoglobin Sodium Potassium Chloride Carbon Dioxide BUN Creatinine Glucose POC Glucose 125 H 127 H Lactic Acid Calcium Phosphorus Magnesium Total Creatine Kinase Troponin T Total Protein Albumin Triglycerides LDL Cholesterol Direct HDL Cholesterol Arterial Blood Glucose 191 H Arterial Blood Ionized Calcium Urine pH Urine WBC (Auto) Vancomycin Trough Salicylates Acetaminophen Crossmatch Allied health notes reviewed: nursing
--- NOTE | 2020-11-13 09:36 | XRay Report ---
CHEST - 1 VIEW INDICATION: Worsening Hypoxemia despite bronch COMPARISON: Yesterday FINDINGS: SUPPORT DEVICES: Stable support device positioning. HEART: Stable cardiomediastinal silhouette. LUNGS/PLEURA: New complete opacification of the right hemithorax which most likely represents mucus plugging/large pleural effusion given development in the short time interval. Persistent patchy moder ate airspace disease in the left lung as well. ADDITIONAL FINDINGS: None. IMPRESSION: Worsened exam. Signer Name: Prashanth Colindres MD Signed: 11/13/2020 9:32 AM Workstation Name: [id number]
--- NOTE | 2020-11-13 09:36 | XRay Report ---
BILATERAL KNEE 4 VIEW(S) INDICATION / CLINICAL INFORMATION: EFFUSION, HX OF RECURRENT COMPARISON: None available. FINDINGS: Right knee: BONES / JOINT(S): No acute fracture or subluxation. Advanced tricompartmental arthrosis. Diffuse oste openia. SOFT TISSUES: Generalized soft tissue swelling and edema around the knee. Mild suprapatellar knee izabella nt effusion. Vascular Calcification are noted. ADDITIONAL FINDINGS: None. Left knee: BONES / JOINT(S): No acute fracture or subluxation. Moderate tricompartmental arthrosis most advanced medial tibiofemoral compartment. Diffuse osteopenia. SOFT TISSUES: Generalized soft tissue swelling and edema around the knee. Mild suprapatellar knee izabella nt effusion. Vascular calcifications are noted. ADDITIONAL FINDINGS: None. Signer Name: Justin Basilio MD Signed: 11/13/2020 9:32 AM Workstation Name: [id number]
[2020-11-13] MEDS ORDERED: MIDAZOLAM 2 MG/2 ML INJ IV NR (09:55)
[2020-11-13] MEDS ORDERED: fentaNYL 100 MCG/2 ML INJ IV NR (09:56)
--- NOTE | 2020-11-13 10:38 | Procedure Note ---
Date of procedure: 11/13/20 Pre-op diagnosis: Mucous Plug Post-op diagnosis: same Procedure: Patient sitting up right at 50 degree angle, bite block in place and Fent 5o and Versed 1 given. Adequate sedation vitals stable. Scope introduced and vocal cords seen with good AD and AB duction. Dusky appearance to mucosa compared to yesterday, likely from prolonged hypoxemia from mucuous plug. Large plug identified on the right, consistent with CXR findings. Plug removed and all air ways patent from bronchoscope. Scope retracted and bite block removed. Patient awake and nodding head appropriately post procedure with no immediate complications. Sat was 100%. Anesthesia: other (conscious sedation) Surgeon: SHRUTHI VILLAGOMEZ Estimated blood loss: none Pathology: none Condition: stable Disposition: other ([facility])
--- NOTE | 2020-11-13 10:39 | Event Note ---
Date: 11/13/20 Second day of bronch for compete obstruction of right mainstem bronchus. Will call Cousin who now has POA to discuss the possible need for trach strictly for airway clearance given weakness of patient. Will continue QID nebs and vest therapy, this must be done at night even if patient is asleep. Guarded prognosis.
--- NOTE | 2020-11-13 11:14 | Progress Note ---
Assessment and Plan Cultures: 10/26/2020 tracheal aspirate culture: MRSA 10/26/2020 blood culture: Proteus 10/27/2020 urine culture: Mixed hien A/P: 75-year-old male, care home resident with seizure disorder, hypertension, depression, hyperlipidemia, chronic encephalopathy was sent to the hospital with worsening mental status: #Septic shock, Proteus bacteremia: Off pressors, leukocytosis better. multifactorial from infected sacral decubitus ulcer, bilateral pneumonia, UTI. Worsening leukocytosis with acute diarrhea 1L loose stool overnight ? C. difficile, leukocytosis improving today #Acute diarrhea: ? C. difficile, improved on vancomycin p.o. Diarrhea improved, Cdiff test was not able to be done. #Necrotic, infected sacral decubitus ulcer: underwent debridement 10/29/2020, als o noted to have brittle coccyx consistent with osteomyelitis. #UTI: UA with significant pyuria. #Bilateral pneumonia: Noted on CT. Possibly some aspiration. Sputum culture positive for MRSA. Received vancomycin IV for 7 days. #FAZAL: Renally dose antibiotics. #Acute respiratory failure: on the vent. Extubated #PVD: SFA occlusion. Not a candidate for revascularization per vascular Recs: -Monitor leukocytosis which is improving/stable -Continue empiric vancomycin 125 mg p.o. 4 times daily D9 of 10 -Completed empiric ceftriaxone and metronidazole. Eliezer Jack MD [facility] O: [phone] F: [phone] Subjective Date of service: 11/13/20 Principal diagnosis: Acute Resp Fail, Septic Shock, Sacral Ulcer, AF with RVR Interval history: Afebrile, no acute change. Patient had bronch today for obstruction. Imaging personally reviewed: Chest x-ray: Worsening opacification of the right hemithorax Objective - Exam Narrative Exam: General appearance: alert in NAD Eyes: anicteric sclerae, moist conjunctivae; no lid-lag; PERRLA HENT: Normocephalic, Atraumatic; normal external ears, nares openNeck: supple, tracheal midline, no JVD Lungs: Diminished breath sound bilaterally CV: RRR Abdomen: Soft, nontender Extremities: Bilateral upper extremity and lower extremity edema Skin: No rash. Extensive scrotal edema Psych: No agitated Neuro: Alert, open eyes, follows commands - Constitutional Vitals: Vital Signs Temp Pulse Resp BP Pulse Ox 97.1 F L 71 18 139/84 93 11/13/20 08:00 11/13/20 07:38 11/13/20 07:38 11/12/20 23:41 11/13/20 07:38 Temperature -Last 24 Hours Temperature 97.1 F Temperature 98.2 F Temperature 97.2 F Temperature 97.8 F Temperature 98.0 F - Labs CBC & Chem 7: 11/12/20 08:33 11/12/20 08:33 Labs: Abnormal lab results 11/12/20 11/12/20 11/13/20 Range/Units 11:38 17:17 05:28 ABG pH (7.320-7.450) POC ABG pCO2 51.4 H (32.0-48.0) mmHg POC ABG pO2 41.7 L (83-108) mmHg ABG Hemoglobin 9.1 L (12.0-17.5) ABG Oxyhemoglobin 72.2 L (94-98) ABG Sodium 151.1 H (136.0-145.0) mmol/L ABG Potassium 3.2 L (3.40-4.50) mmol/L ABG Chloride 122.0 H (98-107) mmol/L ABG Glucose 191 H (65-95) mg/dL POC Glucose 125 H 127 H (70-105) mg/dL Arterial Blood Glucose 191 H (65-95) mg/dL 11/13/20 Range/Units Unknown ABG pH 7.295 L (7.320-7.450) POC ABG pCO2 56.0 H (32.0-48.0) mmHg POC ABG pO2 49.1 L (83-108) mmHg ABG Hemoglobin 8.3 L (12.0-17.5) ABG Oxyhemoglobin 77.1 L (94-98) ABG Sodium 150.5 H (136.0-145.0) mmol/L ABG Potassium 3.3 L (3.40-4.50) mmol/L ABG Chloride 121.0 H (98-107) mmol/L ABG Glucose 187 H (65-95) mg/dL POC Glucose (70-105) mg/dL Arterial Blood Glucose 187 H (65-95) mg/dL
[2020-11-13] MEDS: SODIUM HYPOCHLORITE, DAKIN'S 1/2 STRENGTH (0.25%) 473 ML TOPICAL SOLN TP SCH ×2 (11:30→22:45)
--- NOTE | 2020-11-13 11:46 | Electrocardiograph Report ---
[facility] Test Date: 2020-11-13 Test Time: 05:20:51 Pat Name: JESUS FERRARO Department: Room: A265 1 Gender: M Director Operations: chip : [id number] Requested By: CHARLIE HERBERT Order Number: [id number] Reading MD: Luke Hall Measurements Intervals [place] Rate: 50 P: -55 AL: 211 QRS: -28 QRSD: 98 T: -11 QT: 648 QTc: 594 Interpretive Statements Sinus or ectopic atrial bradycardia Low voltage, precordial leads Prolonged QT interval Compared to ECG 10/28/2020 00:19:52 Electronically Signed On 11-13-2020 11:46:09 EDT by Luke Hall
--- NOTE | 2020-11-13 12:47 | Progress Note ---
Assessment and Plan The pt is a 75-year-old male [facility] resident with a past medical history of seizure disorder, hypertension, depression, hyperlipidemia, chronic encephalopathy. He is intubated and sedated on evaluation and thus HPI is obtained per the chart. Pt was sent to the hospital for evaluation of AMS. Following arrival, pt diagnosed with necrotic sacral ulcer, sepsis with septic shock requiring vasopressor support, UTI, bilateral PNA with acute respiratory failure requiring intubation, COVID-19 testing negative, anemia, FAZAL. Pt was reported to have SVT prehospital for which he received IV adenosine and cardiology was consulted. tte reviewed - EF 55-60%, no significant abnormalities. Pt is currently on CPAP, lethargic. He received bronchoscopy for mucous plug this am. Tele reviewed: SB 40-70s. Episode of low HR SB 30. Discontinue Amiodarone 200mg PO. Avoid AV katherin blocking medications. No systemic AC at this time in regards to Paroxismal AFib in setting of anemia requiring PRBC tx, thrombocytopenia and sacral ulcer (pt is s/p debulking debridement but not a candidate at this time for more aggressive debridement given clinical instability and malnutrition per general surgery). Cont supportive management. Electrolyte derangement noted. Management per primary team. Will follow. The patient has been seen in conjunction with Dr. Landa who agrees with the assessment and plan of care. - Patient Problems (1) AMS (altered mental status) Current Visit: Yes Status: Acute (2) Atrial fibrillation with RVR Current Visit: Yes Status: Acute Currently in SR with PJCs. No AC in setting of anemia. (3) Acute respiratory failure Current Visit: Yes Status: Acute (4) Bilateral pneumonia Current Visit: Yes Status: Acute (5) Sepsis Current Visit: Yes Status: Acute (6) Sepsis associated hypotension Current Visit: Yes Status: Acute Pt is requiring Levophed titration to maintain pressure (7) Sacral decubitus ulcer, stage IV Current Visit: Yes Status: Acute (8) UTI (urinary tract infection) Current Visit: Yes Status: Acute (9) FAZAL (acute kidney injury) Current Visit: Yes Status: Acute (10) Hypomagnesemia Current Visit: Yes Status: Acute (11) Anemia Current Visit: Yes Status: Acute (12) Thrombocytopenia Current Visit: Yes Status: Acute Subjective Date of service: 11/13/20 Principal diagnosis: Acute Resp Fail, Septic Shock, Sacral Ulcer, AF with RVR Interval history: Pt is on CPAP, lethargic. Tele reviewed: SB 48. Episode of low HR SB 30. Objective Last Vital Signs Temp 97.1 F L 11/13/20 08:00 Pulse 70 11/13/20 11:33 Resp 18 11/13/20 11:33 BP 133/97 11/13/20 11:33 Pulse Ox 95 11/13/20 11:41 - Physical Examination General: Other (lethargic ) HEENT: Positive: Normocephaly Neck: Positive: neck supple, trachea midline Cardiac: Positive: Regular Rhythm, S1/S2, Bradycardia Lungs: Positive: Other (Pt receiving bronchoscopy for mucous plug.) Neuro: Positive: Other (lethargic) Abdomen: Positive: Soft Skin: Positive: Wound. Negative: Rash Musculoskeletal: No Pain Extremities: Present: upper extr. pulses, lower extr. pulses, edema, Other (chronic skin changes noted) - Imaging and Cardiology EKG: report reviewed, image reviewed Echo: report reviewed (10/28/2020- EF 55-60%, no significant valvular abnormalities) - Telemetry EKG Rhythm: Sinus Bradycardia - Allied health notes Allied health notes reviewed: nursing
[2020-11-13] MEDS: MIDODRINE 5 MG TAB PO SCH ×2 (14:32→18:02)
[2020-11-13] MEDS: FAMOTIDINE 20 MG TAB PO SCH ×2 (14:36→22:45)
[2020-11-13] MEDS: ENOXAPARIN 40 MG/0.4 ML INJ SUB-Q SCH (14:36)
[2020-11-13] MEDS: ACETAMINOPHEN 325 MG TAB PO PRN (14:36)
[2020-11-13] MEDS: AMIODARONE 200 MG TAB PO SCH (15:43)
[2020-11-13 23:42] LABS: Hematocrit 24.5 % (35.5-45.6); Hemoglobin 7.7 gm/dl (11.8-15.2); Mean Corpuscular HGB Conc 32 % (32-34); Mean Corpuscular Volume 102 fl (84-94); Platelet Count 312 K/mm3 (140-440); Red Blood Count 2.41 M/mm3 (3.65-5.03)
[2020-11-14 00:47] LABS: Blood Urea Nitrogen 25 mg/dL (9-20); Calcium 7.5 mg/dL (8.4-10.2); Hemolysis Index 5
[2020-11-14 00:51] LABS: BUN/Creatinine Ratio 63
[2020-11-14] MEDS: VANCOMYCIN 250 MG/10 ML ORAL LIQD PO SCH ×3 (05:24→17:58)
[2020-11-14] MEDS ORDERED: DEXTROSE 50% IN WATER (25GM) 50 ML SYRINGE IV ONE ×2 (05:30→05:32)
[2020-11-14] MEDS ORDERED: ATROPINE 0.1% (1 MG/10 ML) CARDIAC SYRINGE ONE (08:05)
[2020-11-14] MEDS: ALBUTEROL 2.5 MG/3 ML NEBU IH SCH ×3 (08:50→20:20)
[2020-11-14] MEDS: DEXTROSE 5% IN WATER 1,000 ML IV SCH (08:51)
[2020-11-14] MEDS: DOPamine/D5W 800 MG/250 ML 800 MG/250 ML BAG IV SCH (08:54)
--- NOTE | 2020-11-14 08:59 | XRay Report ---
CHEST 1 VIEW 11/14/2020 7:43 AM INDICATION / CLINICAL INFORMATION: respiratory failure. COMPARISON: 11/13/2020 FINDINGS: SUPPORT DEVICES: Stable, satisfactory device positioning. HEART / MEDIASTINUM: Stable. LUNGS / PLEURA: Significant interval improvement in right lung aeration with small amount of residual right pleural fluid. Diffuse left lung airspace disease is mildly improved. No pneumothorax. ADDITIONAL FINDINGS: No significant additional findings. IMPRESSION: 1. Significant interval improvement, as described above. Signer Name: You Lord MD Signed: 11/14/2020 8:55 AM Workstation Name: [id number]
[2020-11-14] MEDS ORDERED: DOBUTamine/D5W 500 MG/250 ML 500 MG/250 ML BAG IV SCH (09:00)
[2020-11-14] MEDS: SODIUM HYPOCHLORITE, DAKIN'S 1/2 STRENGTH (0.25%) 473 ML TOPICAL SOLN TP SCH ×2 (09:09→22:08)
[2020-11-14] MEDS: MIDODRINE 5 MG TAB PO SCH ×3 (09:29→17:49)
[2020-11-14] MEDS: ENOXAPARIN 40 MG/0.4 ML INJ SUB-Q SCH (09:29)
[2020-11-14] MEDS: FAMOTIDINE 20 MG TAB PO SCH ×2 (09:29→22:07)
--- NOTE | 2020-11-14 09:40 | Progress Note ---
Assessment and Plan Assessment and plan: This is a 75-year-old male who is a care home resident with seizure disorder, hypertension, depression, hyperlipidemia, hypoglycemia, dysphagia, and encephalopathy who presents to the emergency department on 10/26 via EMS for tachypnea, dry mucous membranes and hypoxia. Patient was hypotensive, febrile to 103 degrees and hypoxic in the emergency department therefore he was intubated and central IV access was obtained. Patient received 3.5 L of IV fluid in the emergency department. Patient was admitted to the hospital service with consults to CCM, surgery, WOCN and ID for Sepsis, acute kidney injury, urinary tract infection, acute respiratory failure, electrolyte imbalances, infected sacral wound and bilateral pneumonia. Sepsis Acute respiratory failure Infected sacral wound s/p debridement with surgery Generalized anasarca possible acute diastolic congestive heart failure Anemia s/p 2 units prbc Bilateral pleural effusion Right and left lung atelectasis secondary to mucous plug Proteus bacteremia MRSA pneumonia Urine tract infection Acute kidney injury with vasomotor Nephropathy Acute Diarrhea ?C.diff- Test was not peformed Leukocytosis SFA occlusion - Not a candidate for surgery per Vascular SVT- Resolved Hyponatremia Hypoglycemia Hyperchloremia Hypocalcemia Hypomagnesemia Hypophosphatemia Lactic acidosis 10/27: Patient received additional 4 L LR for fluid resuscitation and CV monitoring was initiated. Patient is on Levophed. ID added Flagyl to vancomycin and cefepime. His trach aspirate grew staph coccus aureus. At the time my examination patient the fentanyl drip was held by RN and he was on 14 MCG of Levophed. This morning he was on assist control 450/20/6/.100. We will give additional bolus of fluids with goal CVP 10-12 and repeat labs in AM. Surgery was consulted to possible debridement. 10/28: Overnight it was noted that patient went into SVT and he was given adenosine 6 mg/12 mg / 12 mg once and was started on a Cardizem drip after no response to amnio bolus and cardiology was consulted. Currently patient remains on Levophed drip and is hypotensive and received additional 2 L of bolus for goal CVP of 10-12. Infectious disease changed cefepime/Flagyl to meropenem for GNR in his blood cultures 09/04 and will continue vancomycin. Patient currently was not well controlled on max Cardizem and cardiology initiated amiodarone. Patient still is very tachycardic. Patient is hypomagnesemic and we will replete his Mg and recheck level. We will give the patient additional to complete resolve LR this afternoon. Patient has a standing order per [facility] to bolus the patient with LR for CVP goal of 10-12. This morning he is hyperchlormeic, metabolic acidotic (bicarb drip initiated) and his BUN/creatinine slightly elevated. Patient still remains lactic acidotic. 10/29: Patient's blood culture speciated to Proteus and his tracheal aspirate is MRSA. He is currently on ceftriaxone, Flagyl and vancomycin. Patient heart rate consistently is 110-150s and cardiology has given him an amiodarone bolus today and he remains on amiodarone drip. He looks much started on IV digoxin. This morning 4 L LR bolus was ordered and we will bolus an additional 4 L of LR this afternoon. Patient still has lactic acidosis, metabolic acidosis, leukocytosis and hyperchloremia. On examination this morning patient is more edematous and he remains on Levophed and amnio drip. 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 Remains on amio, levo and sedated with fentanyl. He is hypokalemic today which was repleted, h/h 02/18 and he is being type and crossed today with 2 units PRBC ordered to be transfused. Plt drop noted, heparin discontinued and HIT ordered. Bicarb gtt discontinued. No acute events overnight. 10/31: Patient hypomagnesemia today which was repleted and cardiology has changed his IV amiodarone to p.o. Patient will get albumin per [facility]. At the time my examination patient is on assist control 450/20/6/0.40. 11/03: At the time my examination patient is on assist control 450/20/6/0.25 and sedated with fentanyl and on Levophed at 4.Patient's leukocytosis is improving he received Albumin this weekend. Patient is hypokalemic, hypomagnesemic, hypocalcemic today. We will repeat his electrolytes and recheck a BMP in the a.m. Patient received 2 units PRBC on 10/30 and his hemoglobin has been trending down. We will recheck in the a.m. 11/04: At the time of my examination patient was on Levophed 3 mcg and on VZV/CPAP 450/20/6/0.35. Patient still has leukocytosis, respiratory alkalosis, hyponatremia, hypochloremia, hypocalcemia. Today his magnesium and potassium repleted with bolus of potassium 4/magnesium 2. He received 60 mcg KCl p.o., 40 mEq of KCl IV and 2 g of magnesium sulfate. We will recheck BMP and mag and a.m. Surgery has deemed the patient to unstable for further debulking. We also consulted vascular surgery for PVD as patient has discoloration to BLE /feet. 11/05: Vascular surgery will obtain bilateral lower extremity arterial duplex to evaluate arterial flow and recommends adding as FWF to tube feedings in assisting to wean off of vasopressors. Patient has hypokalemia, hypophosphatemia and normal to low magnesium. Magnesium, potassium and phosphate have been repleted. Patient still remains on ventilator support but on CPAP trial this morning. Patient HIT is still pending. This morning at the time of my examination patient was on assist-control 450/20/6/0.35 and he tolerated CPAP trial for 4 hours yesterday. He was on Levophed 0.5 and his rectal tube output was noted at 1000 mL. 11/06: This morning patient was on a CPAP trial and became hypoxic with SPO2 into the 80s and was switched back to assist control. Patient's vent settings are assist control tidal and 450, rate 20, PEEP 6, FiO2 0.25. Today patient has leukocytosis, hypernatremia, hyperchloremia, hypocalcemia and hypophosphatemia. We will repeat a phosphate. His free water flushes have been increased and his magnesium has been repleted again. Patient has been started on Lovenox given improvement in his platelet count and on midodrine to help keep Levophed off. Infectious disease will continue p.o. vancomycin for total of 10 days. 11/07: Patient failed his CPAP trial yesterday and has been placed on CPAP 05/06 again this morning by RT. Overnight patient was rested on assist control tolerance by 50, rate of 20, pressure support 6 and FiO2 30%. His lab work is still pending for this morning. On repeat his phosphorus was 4.50 yesterday and repletion was discontinued. 11/08/2020; patient is off pressors currently on midodrine. Patient is on ceftriaxone and vancomycin. Patient is on assist control. Patient was evaluated by vascular surgery for peripheral vascular disease with SFA occlusion and recommend no intervention at this time. Prognosis is guarded. Patient is on 2 L of intranasal oxygen. We will put speech therapy evaluation. 11/09/2020; patient is currently off pressors and on midodrine. Continue with ceftriaxone, Flagyl and vancomycin per ID recommendation. Patient's blood c ulture grew Proteus mirabilis and tracheal aspirate grew MRSA. Patient was evaluated by vascular surgery for PVD with SFA occlusion and recommend no intervention at this time. Patient is on 2 L of intranasal oxygen. Currently patient is on tube feeding and follow speech therapy evaluation. 11/10: Overnight noted to have increased RR, ? Awaiting speech eval considering patient still on Tube feeds. Continue to monitor Hypernatremia. Antibiotics today will be D12/14. Will continue discharge planning on discussion with CM. Patient nonrebreather. Possibly back on congestive heart failure will need appropriate diuresis. Transferred back to [facility]. Discussed with computer technology teacher and also with cardiology. 11/11: Remains lethargic remains in respiratory distress chest x-ray shows right lung collapse likely secondary to mucous plug. Discussed with computer technology teacher will likely undergo a bronchoscopy today. We will also continue to monitor as we did suggest possible pleural effusion which we think may be less likely but if that seems to be the case we will send patient for thoracentesis following the bronchoscopy. Continue to monitor hemoglobin continue to monitor diarrhea antibiotics management per infectious disease. I did speak and update patient's cousin yesterday. Patient still with edema will await cardiology reevaluation for possible further diuresis. 11/12: Patient for Bronchoscopy today. Continue supportive care 11/13: Patient Clinically improving, tolerated Bronchoscopy yesterday. Awaiting am labs today. Overnight had bradycardia. Continue weaning oxygen. Discussed with uniform room attendant patient did have bronchial plug plus pleural effusion but will address. Will monitor serial x-rays. Discussed with nursing staff about my discussion with the brother. Continue supportive care PER Brother,([phone] patient has had recurrent knee aspiration Cardiology to re-evaluate today for Bradycardia noted overnight 11/14: Patient had a repeat bronchoscopy yesterday of the right lung due to mucous plug. Floor Technician did have a conversation with the cousin as one of the considerations may be a trach due to recurrent pulmonary mucous plug and also significant debility for patient's overall medical condition. And his inability to maintain his airway. We will start him on a low round of D5 until diet is established. We will continue to monitor clinical status this morning. Plan discussed with nursing staff patient and also with choker setter The high probability of a clinically significant, sudden or life threatening deterioration of the [pulmonary, cardiac] system(s) required my full and direct attention, intervention and personal management. The aggregate critical care time was [35] minutes. This time is in addition to time spent performing re ported procedures but includes the following: [X] Data Review and interpretation [X] Patient assessment and monitoring of vital signs [X] Documentation [X] Medication orders and management History Interval history: Patient seen and examined, remains on BiPAP this morning. Required bronchoscopy of the right long as he had a mucous plug also. Overnight reported by nurse to have low blood sugar. Hospitalist Physical - Physical exam Narrative exam: VITAL SIGNS: Reviewed. GENERAL: The patient appears normally developed, on BiPAP. vital signs as documented. HEAD: No signs of head trauma. EYES: Pupils are equal. Extraocular motions intact. EARS: Hearing grossly intact. MOUTH: Oropharynx is normal. NECK: No adenopathy, no JVD. CHEST: Chest with crackles breath sounds bilaterally. No wheezes CARDIAC: Regular rate and rhythm. S1 and S2, without murmurs, gallops, or rubs. VASCULAR: +2 bilateral pitting edema. Peripheral pulses normal and equal in all extremities. ABDOMEN: Soft, non tender and non distended. No rebound or guarding, and no masses palpated. Bowel Sounds normal. MUSCULOSKELETAL: Good range of motion of all major joints. Extremities without clubbing, cyanosis. +2 bilateral pitting edema. NEUROLOGIC EXAM: Awake but lethargic and oriented x 3 No focal sensory or strength deficits. Speech garbled speech but improved compared to yesterday. Follows commands. PSYCHIATRIC: Mood normal. SKIN: detail exam as documented in skin assessment - Constitutional Vitals: Temp Pulse Resp BP Pulse Ox 97.6 F 95 H 24 134/83 100 11/14/20 07:51 11/14/20 09:27 11/14/20 09:27 11/14/20 09:27 11/14/20 09:27 General appearance: Present: no acute distress, other (Intubated, resting comfortably) HEART Score - HEART Score EKG: Non-specific Age: > 65 Risk factors: > 3 risk factors or hx of atherosclerotic disease Troponin: Troponin T 0.123 ng/mL (0.00-0.029) H* 11/13/20 23:15 Troponin: < normal limit - Critical Actions Critical Actions: 4-6 pts:12-16.6% risk of adverse cardiac event. Should be admitted Results - Labs CBC & Chem 7: 11/13/20 23:15 11/13/20 23:15 Labs: Laboratory Last Values WBC 12.2 K/mm3 (4.5-11.0) H 11/13/20 23:15 RBC 2.41 M/mm3 (3.65-5.03) L 11/13/20 23:15 Hgb 7.7 gm/dl (11.8-15.2) L 11/13/20 23:15 Hct 24.5 % (35.5-45.6) L 11/13/20 23:15 MCV 102 fl (84-94) H 11/13/20 23:15 MCH 32 pg (28-32) 11/13/20 23:15 MCHC 32 % (32-34) 11/13/20 23:15 RDW 23.0 % (13.2-15.2) H 11/13/20 23:15 Plt Count 312 K/mm3 (140-440) 11/13/20 23:15 Lymph % (Auto) 9.1 % (13.4-35.0) L 11/09/20 06:00 [place] % (Auto) 5.4 % (0.0-7.3) 11/09/20 06:00 Eos % (Auto) 0.3 % (0.0-4.3) 11/09/20 06:00 Baso % (Auto) 0.4 % (0.0-1.8) 11/09/20 06:00 Lymph # (Auto) 1.2 K/mm3 (1.2-5.4) 11/09/20 06:00 [place] # (Auto) 0.7 K/mm3 (0.0-0.8) 11/09/20 06:00 Eos # (Auto) 0.0 K/mm3 (0.0-0.4) 11/09/20 06:00 Baso # (Auto) 0.0 K/mm3 (0.0-0.1) 11/09/20 06:00 Add Manual Diff Complete 11/10/20 13:46 Total Counted 100 11/10/20 13:46 Seg Neutrophils % 84.8 % (40.0-70.0) H 11/09/20 06:00 Seg Neuts % (Manual) 90.0 % (40.0-70.0) H 11/10/20 13:46 Band Neutrophils % 17.0 % 10/27/20 03:30 Lymphocytes % (Manual) 3.0 % (13.4-35.0) L 11/10/20 13:46 Monocytes % (Manual) 7.0 % (0.0-7.3) 11/10/20 13:46 Eosinophils % (Manual) 2.0 % (0.0-4.3) 10/27/20 03:30 Metamyelocytes % 4.0 % 10/27/20 03:30 Nucleated RBC % Not Reportable 11/10/20 13:46 Seg Neutrophils # 11.1 K/mm3 (1.8-7.7) H 11/09/20 06:00 Seg Neutrophils # Man 14.5 K/mm3 (1.8-7.7) H 11/10/20 13:46 Band Neutrophils # 0.0 K/mm3 11/10/20 13:46 Lymphocytes # (Manual) 0.5 K/mm3 (1.2-5.4) L 11/10/20 13:46 Abs React Lymphs (Man) 0.0 K/mm3 11/10/20 13:46 Monocytes # (Manual) 1.1 K/mm3 (0.0-0.8) H 11/10/20 13:46 Eosinophils # (Manual) 0.0 K/mm3 (0.0-0.4) 11/10/20 13:46 Basophils # (Manual) 0.0 K/mm3 (0.0-0.1) 11/10/20 13:46 Metamyelocytes # 0.0 K/mm3 11/10/20 13:46 Myelocytes # 0.0 K/mm3 11/10/20 13:46 Promyelocytes # 0.0 K/mm3 11/10/20 13:46 Blast Cells # 0.0 K/mm3 11/10/20 13:46 WBC Morphology Not Reportable 11/10/20 13:46 Hypersegmented Neuts Not Reportable 11/10/20 13:46 Hyposegmented Neuts Not Reportable 11/10/20 13:46 Hypogranular Neuts Not Reportable 11/10/20 13:46 Smudge Cells Not Reportable 11/10/20 13:46 Toxic Granulation Not Reportable 11/10/20 13:46 Toxic Vacuolation Not Reportable 11/10/20 13:46 Dohle Bodies Not Reportable 11/10/20 13:46 Pelger-Huet Anomaly Not Reportable 11/10/20 13:46 Kassi Rods Not Reportable 11/10/20 13:46 Platelet Estimate Not Reportable 11/10/20 13:46 Clumped Platelets Not Reportable 11/10/20 13:46 Plt Clumps, EDTA Not Reportable 11/10/20 13:46 Large Platelets Not Reportable 11/10/20 13:46 Giant Platelets Not Reportable 11/10/20 13:46 Platelet Satelliting Not Reportable 11/10/20 13:46 Plt Morphology Comment Not Reportable 11/10/20 13:46 RBC Morphology Not Reportable 11/10/20 13:46 Dimorphic RBCs Yes 11/10/20 13:46 Polychromasia Not Reportable 11/10/20 13:46 Hypochromasia Not Reportable 11/10/20 13:46 Poikilocytosis Not Reportable 11/10/20 13:46 Anisocytosis Not Reportable 11/10/20 13:46 Microcytosis Rare 11/10/20 13:46 Macrocytosis Rare 11/10/20 13:46 Spherocytes Not Reportable 11/10/20 13:46 Pappenheimer Bodies Not Reportable 11/10/20 13:46 Sickle Cells Not Reportable 11/10/20 13:46 Target Cells Not Reportable 11/10/20 13:46 Tear Drop Cells Not Reportable 11/10/20 13:46 Ovalocytes Not Reportable 11/10/20 13:46 Helmet Cells Not Reportable 11/10/20 13:46 [place]-Tancred Bodies Not Reportable 11/10/20 13:46 [place] Rings Not Reportable 11/10/20 13:46 [place] Cells Not Reportable 11/10/20 13:46 Bite Cells Not Reportable 11/10/20 13:46 Crenated Cell Not Reportable 11/10/20 13:46 Elliptocytes Not Reportable 11/10/20 13:46 Acanthocytes (Spur) Not Reportable 11/10/20 13:46 Rouleaux Not Reportable 11/10/20 13:46 Hemoglobin C Crystals Not Reportable 11/10/20 13:46 Schistocytes Not Reportable 11/10/20 13:46 Malaria parasites Not Reportable 11/10/20 13:46 Richard Bodies Not Reportable 11/10/20 13:46 Hem Pathologist Commnt No 11/10/20 13:46 PT 15.0 Sec. (12.2-14.9) H 11/11/20 14:38 INR 1.18 (0.87-1.13) H 11/11/20 14:38 APTT 27.9 Sec. (24.2-36.6) 10/26/20 17:25 Heparin Anti-Xa, Unfract Negative (Negative) 11/03/20 11:01 ABG pH 7.295 (7.320-7.450) L 11/13/20 Unknown POC ABG pCO2 56.0 mmHg (32.0-48.0) H 11/13/20 Unknown ABG pCO2 35.4 mm Hg 11/07/20 12:55 POC ABG pO2 49.1 mmHg (83-108) L 11/13/20 Unknown ABG pO2 82.0 mm Hg (80.0-90.0) 11/07/20 12:55 POC ABG HCO3 26.6 11/13/20 Unknown ABG HCO3 23.4 mmol/L (20.0-26.0) 11/07/20 12:55 ABG O2 Saturation 78 (0-100) 11/13/20 Unknown ABG O2 Content 10.5 (0.0-44) 11/07/20 12:55 POC ABG Base Excess -0.2 11/13/20 Unknown ABG Base Excess -0.5 mmol/L (-2.0-3.0) 11/07/20 12:55 ABG Hemoglobin 8.3 (12.0-17.5) L 11/13/20 Unknown ABG Oxyhemoglobin 77.1 (94-98) L 11/13/20 Unknown ABG Carboxyhemoglobin 1.4 % (0.0-5.0) 11/07/20 12:55 ABG Methemoglobin 0.3 (0.0-1.5) 11/13/20 Unknown ABG Sodium 150.5 mmol/L (136.0-145.0) H 11/13/20 Unknown ABG Potassium 3.3 mmol/L (3.40-4.50) L 11/13/20 Unknown ABG Chloride 121.0 mmol/L (98-107) H 11/13/20 Unknown ABG Glucose 187 mg/dL (65-95) H 11/13/20 Unknown Oxyhemoglobin 94.9 % (95.0-99.0) L 11/07/20 12:55 Carboxyhemoglobin 0.8 (0.5-1.5) 11/13/20 Unknown FiO2 30 % 11/07/20 12:55 FiO2 % 100 11/13/20 Unknown Sodium 152 mmol/L (137-145) H 11/13/20 23:15 Potassium 3.3 mmol/L (3.6-5.0) L 11/13/20 23:15 Chloride 117.8 mmol/L (98-107) H 11/13/20 23:15 Carbon Dioxide 24 mmol/L (22-30) 11/13/20 23:15 Anion Gap 14 mmol/L 11/13/20 23:15 BUN 25 mg/dL (9-20) H 11/13/20 23:15 Creatinine 0.4 mg/dL (0.8-1.3) L 11/13/20 23:15 Estimated GFR > 60 ml/min 11/13/20 23:15 BUN/Creatinine Ratio 63 % 11/13/20 23:15 Glucose 123 mg/dL (75-100) H 11/13/20 23:15 POC Glucose 135 mg/dL (70-105) H 11/14/20 06:26 Hemoglobin A1c 5.5 % (4-6) 10/27/20 04:42 Lactic Acid 4.30 mmol/L (0.7-2.0) H* 10/31/20 Unknown Calcium 7.5 mg/dL (8.4-10.2) L 11/13/20 23:15 Phosphorus 4.50 mg/dL (2.5-4.5) D 11/06/20 13:03 Magnesium 1.70 mg/dL (1.7-2.3) 11/13/20 23:15 Total Bilirubin < 0.20 mg/dL (0.1-1.2) 11/06/20 06:45 AST 23 units/L (5-40) 11/06/20 06:45 ALT 20 units/L (7-56) 11/06/20 06:45 Alkaline Phosphatase 117 units/L (35-129) 11/06/20 06:45 Total Creatine Kinase 31 units/L (55-170) L 10/26/20 17:28 Troponin T 0.123 ng/mL (0.00-0.029) H* 11/13/20 23:15 Total Protein 5.0 g/dL (6.3-8.2) L 11/06/20 06:45 Albumin 1.4 g/dL (3.9-5) L 11/06/20 06:45 Albumin/Globulin Ratio 0.4 % 11/06/20 06:45 Triglycerides 190 mg/dL (2-149) H 10/26/20 17:25 Cholesterol 92 mg/dL (50-199) 10/26/20 17:25 LDL Cholesterol Direct 33 mg/dL (50-130) L 10/26/20 17:25 HDL Cholesterol 18 mg/dL (40-59) L 10/26/20 17:25 Cholesterol/HDL Ratio 5.11 % 10/26/20 17:25 TSH 1.490 mlU/mL (0.270-4.200) 10/26/20 17:28 Arterial Blood Glucose 187 mg/dL (65-95) H 11/13/20 Unknown Arterial Blood Ionized Calcium 4.7 mg/dL (4.6-5.3) 11/13/20 Unknown Urine Color Yellow (Yellow) 10/27/20 Unknown Urine Turbidity Turbid (Clear) 10/27/20 Unknown Urine pH 8.0 (5.0-7.0) H 10/27/20 Unknown Ur Specific [place] 1.020 (1.003-1.030) 10/27/20 Unknown Urine Protein >500 mg/dL (Negative) 10/27/20 Unknown Urine Glucose (UA) Neg mg/dL (Negative) 10/27/20 Unknown Urine Ketones Neg mg/dL (Negative) 10/27/20 Unknown Urine Blood Sm (Negative) 10/27/20 Unknown Urine Nitrite Neg (Negative) 10/27/20 Unknown Urine Bilirubin Neg (Negative) 10/27/20 Unknown Urine Urobilinogen < 2.0 mg/dL (<2.0) 10/27/20 Unknown Ur Leukocyte Esterase Mod (Negative) 10/27/20 Unknown Urine WBC (Auto) > 182.0 /HPF (0.0-6.0) H 10/27/20 Unknown Urine RBC (Auto) 35.0 /HPF (0.0-6.0) 10/27/20 Unknown Urine WBC Clumps 3+ /HPF 10/27/20 Unknown Urine Mucus 3+ /HPF 10/27/20 Unknown Urine Yeast (Budding) 3+ /HPF 10/27/20 Unknown Vancomycin Trough 22.0 ug/mL (5.0-20.0) H 10/30/20 Unknown Salicylates < 0.3 mg/dL (2.8-20.0) L 10/26/20 17:28 Acetaminophen 5.0 ug/mL (10.0-30.0) L 10/26/20 17:28 Heparin-induced Plt Ab Negative (Negative) 11/03/20 11:01 UF Heparin High Dose 0 % Release 11/03/20 11:01 MOISES UFH Low Dose 0.1 2 % Release 11/03/20 11:01 MOISES UFH Low Dose 0.5 0 % Release 11/03/20 11:01 Coronavirus (PCR) Negative (Negative) 10/27/20 Unknown Blood Type O POSITIVE 10/30/20 09:30 Antibody Screen Negative 10/30/20 09:30 Crossmatch See Detail 10/30/20 09:30 Rivas/IV: Voiding Method Incontinent Active Medications - Current Medications Current Medications: Generic Name Dose Route Start Last Admin Trade Name Freq PRN Reason Stop Dose Admin Acetaminophen 650 mg 10/26/20 22:22 11/13/20 14:36 Acetaminophen 325 Mg Tab PO 650 mg Q4H PRN Administration Pain MILD(1-3)/Fever >100.5/TIERNEY Albuterol 2.5 mg 11/11/20 14:00 11/14/20 08:50 Albuterol 2.5 Mg/3 Ml Nebu IH 2.5 mg TIDRT MARSHALL Administration Lipase/Protease/Amylase 1 each 10/28/20 13:18 Lipase 10,500/Protease 25,000/Amylase 43,750 (Units) Dr Cap FEEDTUBE PRN PRN For Clogged Feeding Tube Enoxaparin Sodium 40 mg 11/07/20 10:00 11/14/20 09:29 Enoxaparin 40 Mg/0.4 Ml Inj SUB-Q 40 mg QDAY@1000 MARSHALL Administration Famotidine 20 mg 11/11/20 10:00 11/14/20 09:29 Famotidine 20 Mg Tab PO 20 mg BID MARSHALL Administration Dextrose 1,000 mls @ 42 mls/hr 11/14/20 08:00 11/14/20 08:51 D5w IV 42 mls/hr DIRECT MARSHALL Administration Dopamine HCl/Dextrose 800 mg in 250 mls @ 12.188 mls/hr 11/14/20 09:00 11/14/20 08:54 Intropin Drip 800 Mg/D5w 250 Ml IV 5 mcg/kg/min TITR MARSHALL 12.188 mls/hr Administration Protocol 5 MCG/KG/MIN Midodrine 10 mg 11/06/20 12:00 11/14/20 09:29 Midodrine 5 Mg Tab PO 10 mg TID@0800,1200,1600 MARSHALL Administration Ondansetron HCl 4 mg 10/26/20 22:22 Ondansetron 4 Mg/2 Ml Inj IV Q8H PRN Nausea And Vomiting Simple Syrup 15 ml 10/28/20 13:18 11/10/20 16:01 Simple Syrup 15 Ml FEEDTUBE 15 ml PRN PRN Administration Hypoglycemia Simple Syrup 30 ml 10/28/20 13:18 Simple Syrup 15 Ml FEEDTUBE PRN PRN Hypoglycemia Sodium Bicarbonate 325 mg 10/28/20 13:18 Sodium Bicarbonate 325 Mg Tab FEEDTUBE PRN PRN For Clogged Feeding Tube Sodium Chloride 10 ml 10/27/20 10:00 11/14/20 09:07 Sodium Chloride 0.9% 10 Ml Flush Syringe IV 10 ml BID MARSHALL Administration Sodium Chloride 10 ml 10/26/20 22:22 Sodium Chloride 0.9% 10 Ml Flush Syringe IV PRN PRN LINE FLUSH Sodium Hypochlorite 1 applic 10/28/20 10:00 11/14/20 09:09 Sodium Hypochlorite, Dakin's 1/2 Strength (0.25%) 473 Ml Topical Soln TP 1 applicatio BID MARSHALL Administration Vancomycin HCl 125 mg 11/05/20 18:00 11/14/20 05:24 Vancomycin 250 Mg/10 Ml Oral Liqd PO 11/15/20 12:01 125 mg Q6HR MARSHALL Administration Protocol Nutrition/Malnutrition Assess - Dietary Evaluation Nutrition/Malnutrition Findings: Nutrition Notes Start: 10/27/20 09:15 Freq: Status: Active Protocol: Document 11/13/20 12:36 CW (Rec: 11/13/20 13:13 CW [id number]) Nutrition Notes Initial or Follow up Reassessment Current Diagnosis Acute Kidney Injury,Decubitus( Pressure Ulcer),Sepsis, Hypertension,Respiratory Failure,Hyperlipidemia Other Pertinent Diagnosis AMS, MRSA, Encephalopathy, Metabiloc Acidosis, pneu ,FTT Current Diet Vital HP at 80 ml/hr Labs/Tests Na 154 K 2.9 BUN 26 BG 153 Pertinent Medications Flagyl KCl 10 mEq NS 500 ml Height 6 ft 2 in Weight 128.6 kg [place] Body Weight (kg) 86.36 BMI 36.3 Weight Status Obese Subjective/Other Information F/U for TF change and tolerance. TF had not been changed to promote. Informed JENNI Castaneda at 0900. TF to be changed over to Promote. Vital HP was running at goal and well tolerated. Percent of energy/protein needs met: 100%/100% Burn Absent Trauma Absent GI Symptoms Diarrhea Difficulty In Swallowing,Chewing Skin Integrity/Comment Multiple pressure ulcer,1 infected Current % PO Negligible Minimum of two criteria No Fluid Accumulation Moderate to Severe (severe) #2 Nutrition Diagnosis Increased nutrient needs ( specify in comment below) Diagnosis Progress(for reassessment Continues documentation) #1 Nutrition Diagnosis Inadequate oral intake Diagnosis Progress(for reassessment Continues documentation) Is patient on ventilator? Yes Is Patient Ambulatory and/or Out of Bed No REE-(Jennings-St. Jeor-confined to bed) 2508.648 Kcal/Kg value to use for calculation 14 Approximate Energy Requirements Using 1800 kcal/Kg Calculation Used for Recommendations Kcal/kg Additional Notes protein needs: 133 - 167g(1.2 - 1.5 g/kgAdBW 111) Fluid needs 1 ml/kcal Nutrition Intervention Change Diet Order: Change TF regimen Nutrition Support: Promote at 80 ml/hr with a free water flush of 250 ml q4h for hypernatremia, once resolved resume flush of 50 ml q4h Kcal 1,920 Protein (gm) 120 Fluid (mL) 1,611 Goal #1 TF tolerance Goal #2 Meet at least 75% EER and protein needs via TF Goal #3 wound healing Anticipated Discharge Needs: unable to determine at this time Follow-Up By: 11/17/20 Additional Comments F/U TF change and tolerance
--- NOTE | 2020-11-14 11:21 | Progress Note ---
Assessment and Plan The pt is a 75-year-old [facility] with a past medical history of seizure disorder, hypertension, depression, hyperlipidemia, chronic encephalopathy. He is intubated and sedated on evaluation and thus HPI is obtained per the chart. Pt was sent to the hospital for evaluation of AMS. Following arrival, pt diagnosed with necrotic sacral ulcer, sepsis with septic shock requiring vasopressor support, UTI, bilateral PNA with acute respiratory failure requiring intubation, COVID-19 testing negative, anemia, FAZAL. Pt was reported to have SVT prehospital for which he received IV adenosine and cardiology was consulted. tte reviewed - EF 55-60%, no significant abnormalities. Pt is currently on CPAP, lethargic. Nurse called concerned that HR is dropping into 30s transiently. Tele reviewed: SR 98. Several episodes of low HR SB 30s. Initiate Dopamine 5mcg/kg gtt x 24 hours. Avoid AV katherin blocking medications. No systemic AC at this time in regards to Paroxismal AFib in setting of anemia requiring PRBC tx, thrombocytopenia and sacral ulcer (pt is s/p debulking debridement but not a candidate at this time for more aggressive debridement given clinical instability and malnutrition per general surgery). Cont supportive management. Troponin is noted to be elevated x 1. Continue to trend Jimmy. Considering pt's advanced age and comorbidities will plan for conservative cardiac management. Will follow. The patient has been seen in conjunction with Dr. Landa who agrees with the assessment and plan of care. - Patient Problems (1) AMS (altered mental status) Current Visit: Yes Status: Acute (2) Atrial fibrillation with RVR Current Visit: Yes Status: Acute Currently in SR with PJCs. No AC in setting of anemia. (3) Acute respiratory failure Current Visit: Yes Status: Acute (4) Bilateral pneumonia Current Visit: Yes Status: Acute (5) Sepsis Current Visit: Yes Status: Acute (6) Sepsis associated hypotension Current Visit: Yes Status: Acute Pt is requiring Levophed titration to maintain pressure (7) Sacral decubitus ulcer, stage IV Current Visit: Yes Status: Acute (8) UTI (urinary tract infection) Current Visit: Yes Status: Acute (9) FAZAL (acute kidney injury) Current Visit: Yes Status: Acute (10) Hypomagnesemia Current Visit: Yes Status: Acute (11) Anemia Current Visit: Yes Status: Acute (12) Thrombocytopenia Current Visit: Yes Status: Acute Subjective Date of service: 11/14/20 Principal diagnosis: Acute Resp Fail, Septic Shock, Sacral Ulcer, AF with RVR Interval history: Pt is on CPAP, lethargic. Tele reviewed: SR 98. Episode of low HR SB 30. Objective Last Vital Signs Temp 97.6 F 11/14/20 07:51 Pulse 95 H 11/14/20 09:27 Resp 24 11/14/20 09:27 BP 134/83 11/14/20 09:27 Pulse Ox 100 11/14/20 09:27 - Physical Examination General: Other (lethargic ) HEENT: Positive: Normocephaly Neck: Positive: neck supple, trachea midline Cardiac: Positive: Reg Rate and Rhythm, S1/S2 Lungs: Positive: Decreased Breath Sounds Neuro: Positive: Grossly Intact, Other (lethargic) Abdomen: Positive: Soft Skin: Positive: Wound. Negative: Rash Musculoskeletal: No Pain Extremities: Present: upper extr. pulses, lower extr. pulses, edema, Other (chronic skin changes noted) - Labs and Meds CBC 11/13/20 Range/Units 23:15 WBC 12.2 H (4.5-11.0) K/mm3 RBC 2.41 L (3.65-5.03) M/mm3 Hgb 7.7 L (11.8-15.2) gm/dl Hct 24.5 L (35.5-45.6) % Plt Count 312 (140-440) K/mm3 Comprehensive Metabolic Panel 11/13/20 Range/Units 23:15 Sodium 152 H (137-145) mmol/L Potassium 3.3 L (3.6-5.0) mmol/L Chloride 117.8 H (98-107) mmol/L Carbon Dioxide 24 (22-30) mmol/L BUN 25 H (9-20) mg/dL Creatinine 0.4 L (0.8-1.3) mg/dL Glucose 123 H (75-100) mg/dL Calcium 7.5 L (8.4-10.2) mg/dL - Imaging and Cardiology EKG: report reviewed, image reviewed Echo: report reviewed (10/28/2020- EF 55-60%, no significant valvular abnormalities) - Telemetry EKG Rhythm: Sinus Rhythm - Allied health notes Allied health notes reviewed: nursing
--- NOTE | 2020-11-14 11:54 | Progress Note ---
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 Crossmatch 11/01/20 11/01/20 11/01/20 05:13 11:42 17:38 WBC RBC Hgb Hct MCV MCHC RDW Plt Count Lymph % (Auto) Seg Neutrophils % Seg Neuts % (Manual) Lymphocytes % (Manual) Nucleated RBC % Seg Neutrophils # Seg Neutrophils # Man Lymphocytes # (Manual) Monocytes # (Manual) PT INR ABG pH POC ABG pCO2 POC ABG pO2 ABG pO2 ABG HCO3 ABG O2 Saturation ABG Base Excess ABG Hemoglobin ABG Oxyhemoglobin ABG Sodium ABG Potassium ABG Chloride ABG Glucose Oxyhemoglobin Carboxyhemoglobin Sodium Potassium Chloride Carbon Dioxide BUN Creatinine Glucose POC Glucose 139 H 139 H 161 H Lactic Acid Calcium Phosphorus Magnesium Total Creatine Kinase Troponin T Total Protein Albumin Triglycerides LDL Cholesterol Direct HDL Cholesterol Arterial Blood Glucose Arterial Blood Ionized Calcium Urine pH Urine WBC (Auto) Vancomycin Trough Salicylates Acetaminophen Crossmatch 11/01/20 11/01/20 11/02/20 23:20 Unknown 04:30 WBC 18.2 H RBC 3.27 L Hgb 9.9 L Hct 30.1 L D MCV MCHC RDW 15.7 H Plt Count 34 L Lymph % (Auto) Seg Neutrophils % Seg Neuts % (Manual) Lymphocytes % (Manual) Nucleated RBC % Seg Neutrophils # Seg Neutrophils # Man Lymphocytes # (Manual) Monocytes # (Manual) PT INR ABG pH 7.456 H POC ABG pCO2 POC ABG pO2 ABG pO2 ABG HCO3 ABG O2 Saturation ABG Base Excess ABG Hemoglobin 9.2 L ABG Oxyhemoglobin ABG Sodium ABG Potassium ABG Chloride ABG Glucose Oxyhemoglobin Carboxyhemoglobin Sodium Potassium Chloride Carbon Dioxide BUN Creatinine Glucose POC Glucose 168 H Lactic Acid Calcium Phosphorus Magnesium Total Creatine Kinase Troponin T Total Protein Albumin Triglycerides LDL Cholesterol Direct HDL Cholesterol Arterial Blood Glucose Arterial Blood Ionized Calcium Urine pH Urine WBC (Auto) Vancomycin Trough Salicylates Acetaminophen Crossmatch 11/02/20 11/02/20 11/02/20 06:29 08:40 08:40 WBC 16.6 H RBC 2.87 L Hgb 8.8 L Hct 26.6 L MCV MCHC RDW 15.8 H Plt Count 30 L Lymph % (Auto) Seg Neutrophils % Seg Neuts % (Manual) 97.0 H Lymphocytes % (Manual) 2.0 L Nucleated RBC % 1.0 H Seg Neutrophils # Seg Neutrophils # Man 16.1 H Lymphocytes # (Manual) 0.3 L Monocytes # (Manual) PT INR ABG pH POC ABG pCO2 POC ABG pO2 ABG pO2 ABG HCO3 ABG O2 Saturation ABG Base Excess ABG Hemoglobin ABG Oxyhemoglobin ABG Sodium ABG Potassium ABG Chloride ABG Glucose Oxyhemoglobin Carboxyhemoglobin Sodium Potassium 2.4 L* D Chloride 110.2 H Carbon Dioxide BUN 23 H Creatinine 0.4 L Glucose 154 H POC Glucose 131 H Lactic Acid Calcium 6.1 L Phosphorus Magnesium 1.50 L Total Creatine Kinase Troponin T Total Protein Albumin Triglycerides LDL Cholesterol Direct HDL Cholesterol Arterial Blood Glucose Arterial Blood Ionized Calcium Urine pH Urine WBC (Auto) Vancomycin Trough Salicylates Acetaminophen Crossmatch 11/02/20 11/02/20 11/02/20 13:17 17:25 18:05 WBC RBC Hgb Hct MCV MCHC RDW Plt Count Lymph % (Auto) Seg Neutrophils % Seg Neuts % (Manual) Lymphocytes % (Manual) Nucleated RBC % Seg Neutrophils # Seg Neutrophils # Man Lymphocytes # (Manual) Monocytes # (Manual) PT INR ABG pH POC ABG pCO2 POC ABG pO2 ABG pO2 ABG HCO3 ABG O2 Saturation ABG Base Excess ABG Hemoglobin ABG Oxyhemoglobin ABG Sodium ABG Potassium ABG Chloride ABG Glucose Oxyhemoglobin Carboxyhemoglobin Sodium Potassium 3.1 L D Chloride Carbon Dioxide BUN Creatinine Glucose POC Glucose 134 H 140 H Lactic Acid Calcium Phosphorus Magnesium Total Creatine Kinase Troponin T Total Protein Albumin Triglycerides LDL Cholesterol Direct HDL Cholesterol Arterial Blood Glucose Arterial Blood Ionized Calcium Urine pH Urine WBC (Auto) Vancomycin Trough Salicylates Acetaminophen Crossmatch 11/02/20 11/03/20 11/03/20 23:36 04:15 05:07 WBC RBC Hgb Hct MCV MCHC RDW Plt Count Lymph % (Auto) Seg Neutrophils % Seg Neuts % (Manual) Lymphocytes % (Manual) Nucleated RBC % Seg Neutrophils # Seg Neutrophils # Man Lymphocytes # (Manual) Monocytes # (Manual) PT INR ABG pH POC ABG pCO2 POC ABG pO2 ABG pO2 ABG HCO3 ABG O2 Saturation ABG Base Excess ABG Hemoglobin ABG Oxyhemoglobin ABG Sodium ABG Potassium ABG Chloride ABG Glucose Oxyhemoglobin Carboxyhemoglobin Sodium Potassium 3.0 L Chloride 111.8 H Carbon Dioxide BUN 24 H Creatinine 0.3 L Glucose 141 H POC Glucose 127 H 156 H Lactic Acid Calcium 5.8 L* Phosphorus Magnesium 1.60 L Total Creatine Kinase Troponin T Total Protein Albumin Triglycerides LDL Cholesterol Direct HDL Cholesterol Arterial Blood Glucose Arterial Blood Ionized Calcium Urine pH Urine WBC (Auto) Vancomycin Trough Salicylates Acetaminophen Crossmatch 11/03/20 11/03/20 11/04/20 11:14 17:31 00:17 WBC RBC Hgb Hct MCV MCHC RDW Plt Count Lymph % (Auto) Seg Neutrophils % Seg Neuts % (Manual) Lymphocytes % (Manual) Nucleated RBC % Seg Neutrophils # Seg Neutrophils # Man Lymphocytes # (Manual) Monocytes # (Manual) PT INR ABG pH POC ABG pCO2 POC ABG pO2 ABG pO2 ABG HCO3 ABG O2 Saturation ABG Base Excess ABG Hemoglobin ABG Oxyhemoglobin ABG Sodium ABG Potassium ABG Chloride ABG Glucose Oxyhemoglobin Carboxyhemoglobin Sodium Potassium Chloride Carbon Dioxide BUN Creatinine Glucose POC Glucose 137 H 151 H 156 H Lactic Acid Calcium Phosphorus Magnesium Total Creatine Kinase Troponin T Total Protein Albumin Triglycerides LDL Cholesterol Direct HDL Cholesterol Arterial Blood Glucose Arterial Blood Ionized Calcium Urine pH Urine WBC (Auto) Vancomycin Trough Salicylates Acetaminophen Crossmatch 11/04/20 11/04/20 11/04/20 05:34 05:34 11:16 WBC 21.9 H RBC 2.67 L Hgb 8.2 L Hct 24.8 L MCV MCHC RDW 15.6 H Plt Count 48 L Lymph % (Auto) Seg Neutrophils % Seg Neuts % (Manual) Lymphocytes % (Manual) Nucleated RBC % Seg Neutrophils # Seg Neutrophils # Man Lymphocytes # (Manual) Monocytes # (Manual) PT INR ABG pH POC ABG pCO2 POC ABG pO2 ABG pO2 ABG HCO3 ABG O2 Saturation ABG Base Excess ABG Hemoglobin ABG Oxyhemoglobin ABG Sodium ABG Potassium ABG Chloride ABG Glucose Oxyhemoglobin Carboxyhemoglobin Sodium 146 H Potassium Chloride 114.6 H Carbon Dioxide BUN 29 H Creatinine 0.3 L Glucose 173 H POC Glucose 156 H Lactic Acid Calcium 5.7 L* Phosphorus Magnesium Total Creatine Kinase Troponin T Total Protein Albumin Triglycerides LDL Cholesterol Direct HDL Cholesterol Arterial Blood Glucose Arterial Blood Ionized Calcium Urine pH Urine WBC (Auto) Vancomycin Trough Salicylates Acetaminophen Crossmatch 11/04/20 11/04/20 11/04/20 11:42 17:18 23:12 WBC RBC Hgb Hct MCV MCHC RDW Plt Count Lymph % (Auto) Seg Neutrophils % Seg Neuts % (Manual) Lymphocytes % (Manual) Nucleated RBC % Seg Neutrophils # Seg Neutrophils # Man Lymphocytes # (Manual) Monocytes # (Manual) PT INR ABG pH 7.525 H POC ABG pCO2 28.9 L POC ABG pO2 64.3 L ABG pO2 ABG HCO3 ABG O2 Saturation ABG Base Excess ABG Hemoglobin 8.2 L ABG Oxyhemoglobin ABG Sodium ABG Potassium 3.3 L ABG Chloride 115.0 H ABG Glucose 165 H Oxyhemoglobin Carboxyhemoglobin Sodium Potassium Chloride Carbon Dioxide BUN Creatinine Glucose POC Glucose 144 H 155 H Lactic Acid Calcium Phosphorus Magnesium Total Creatine Kinase Troponin T Total Protein Albumin Triglycerides LDL Cholesterol Direct HDL Cholesterol Arterial Blood Glucose 165 H Arterial Blood Ionized Calcium 4.0 L Urine pH Urine WBC (Auto) Vancomycin Trough Salicylates Acetaminophen Crossmatch 11/05/20 11/05/20 11/05/20 04:48 04:48 05:57 WBC 17.4 H RBC 2.49 L Hgb 7.8 L Hct 23.5 L MCV MCHC RDW 16.0 H Plt Count 69 L Lymph % (Auto) Seg Neutrophils % Seg Neuts % (Manual) Lymphocytes % (Manual) Nucleated RBC % Seg Neutrophils # Seg Neutrophils # Man Lymphocytes # (Manual) Monocytes # (Manual) PT INR ABG pH POC ABG pCO2 POC ABG pO2 ABG pO2 ABG HCO3 ABG O2 Saturation ABG Base Excess ABG Hemoglobin ABG Oxyhemoglobin ABG Sodium ABG Potassium ABG Chloride ABG Glucose Oxyhemoglobin Carboxyhemoglobin Sodium 147 H Potassium 3.5 L Chloride 115.4 H Carbon Dioxide BUN 34 H Creatinine 0.3 L Glucose 154 H POC Glucose 146 H Lactic Acid Calcium 6.1 L Phosphorus 2.00 L Magnesium Total Creatine Kinase Troponin T Total Protein Albumin Triglycerides LDL Cholesterol Direct HDL Cholesterol Arterial Blood Glucose Arterial Blood Ionized Calcium Urine pH Urine WBC (Auto) Vancomycin Trough Salicylates Acetaminophen Crossmatch 11/05/20 11/05/20 11/05/20 11:33 17:52 23:37 WBC RBC Hgb Hct MCV MCHC RDW Plt Count Lymph % (Auto) Seg Neutrophils % Seg Neuts % (Manual) Lymphocytes % (Manual) Nucleated RBC % Seg Neutrophils # Seg Neutrophils # Man Lymphocytes # (Manual) Monocytes # (Manual) PT INR ABG pH POC ABG pCO2 POC ABG pO2 ABG pO2 ABG HCO3 ABG O2 Saturation ABG Base Excess ABG Hemoglobin ABG Oxyhemoglobin ABG Sodium ABG Potassium ABG Chloride ABG Glucose Oxyhemoglobin Carboxyhemoglobin Sodium Potassium Chloride Carbon Dioxide BUN Creatinine Glucose POC Glucose 144 H 136 H 151 H Lactic Acid Calcium Phosphorus Magnesium Total Creatine Kinase Troponin T Total Protein Albumin Triglycerides LDL Cholesterol Direct HDL Cholesterol Arterial Blood Glucose Arterial Blood Ionized Calcium Urine pH Urine WBC (Auto) Vancomycin Trough Salicylates Acetaminophen Crossmatch 11/06/20 11/06/20 11/06/20 05:36 06:45 06:45 WBC 15.0 H RBC 2.33 L Hgb 7.2 L Hct 22.1 L MCV 95 H MCHC RDW 16.2 H Plt Count 103 L Lymph % (Auto) Seg Neutrophils % Seg Neuts % (Manual) Lymphocytes % (Manual) Nucleated RBC % Seg Neutrophils # Seg Neutrophils # Man Lymphocytes # (Manual) Monocytes # (Manual) PT INR ABG pH POC ABG pCO2 POC ABG pO2 ABG pO2 ABG HCO3 ABG O2 Saturation ABG Base Excess ABG Hemoglobin ABG Oxyhemoglobin ABG Sodium ABG Potassium ABG Chloride ABG Glucose Oxyhemoglobin Carboxyhemoglobin Sodium 148 H Potassium Chloride 118.2 H Carbon Dioxide BUN 32 H Creatinine 0.4 L Glucose 153 H POC Glucose 140 H Lactic Acid Calcium 6.4 L Phosphorus 0.90 L* D Magnesium Total Creatine Kinase Troponin T Total Protein 5.0 L Albumin 1.4 L Triglycerides LDL Cholesterol Direct HDL Cholesterol Arterial Blood Glucose Arterial Blood Ionized Calcium Urine pH Urine WBC (Auto) Vancomycin Trough Salicylates Acetaminophen Crossmatch 11/06/20 11/06/20 11/06/20 11:32 17:37 23:19 WBC RBC Hgb Hct MCV MCHC RDW Plt Count Lymph % (Auto) Seg Neutrophils % Seg Neuts % (Manual) Lymphocytes % (Manual) Nucleated RBC % Seg Neutrophils # Seg Neutrophils # Man Lymphocytes # (Manual) Monocytes # (Manual) PT INR ABG pH POC ABG pCO2 POC ABG pO2 ABG pO2 ABG HCO3 ABG O2 Saturation ABG Base Excess ABG Hemoglobin ABG Oxyhemoglobin ABG Sodium ABG Potassium ABG Chloride ABG Glucose Oxyhemoglobin Carboxyhemoglobin Sodium Potassium Chloride Carbon Dioxide BUN Creatinine Glucose POC Glucose 132 H 133 H 145 H Lactic Acid Calcium Phosphorus Magnesium Total Creatine Kinase Troponin T Total Protein Albumin Triglycerides LDL Cholesterol Direct HDL Cholesterol Arterial Blood Glucose Arterial Blood Ionized Calcium Urine pH Urine WBC (Auto) Vancomycin Trough Salicylates Acetaminophen Crossmatch 11/07/20 11/07/20 11/07/20 12:55 16:45 16:45 WBC 12.0 H RBC 3.63 L Hgb 11.4 L D Hct MCV 104 H MCHC 30 L RDW 18.0 H Plt Count 133 L Lymph % (Auto) Seg Neutrophils % Seg Neuts % (Manual) Lymphocytes % (Manual) Nucleated RBC % Seg Neutrophils # Seg Neutrophils # Man Lymphocytes # (Manual) Monocytes # (Manual) PT INR ABG pH POC ABG pCO2 POC ABG pO2 ABG pO2 ABG HCO3 ABG O2 Saturation ABG Base Excess ABG Hemoglobin 7.7 L ABG Oxyhemoglobin ABG Sodium ABG Potassium ABG Chloride ABG Glucose Oxyhemoglobin 94.9 L Carboxyhemoglobin Sodium 149 H Potassium Chloride 119.8 H Carbon Dioxide BUN 31 H Creatinine 0.4 L Glucose 130 H POC Glucose Lactic Acid Calcium 6.5 L Phosphorus Magnesium Total Creatine Kinase Troponin T Total Protein Albumin Triglycerides LDL Cholesterol Direct HDL Cholesterol Arterial Blood Glucose Arterial Blood Ionized Calcium Urine pH Urine WBC (Auto) Vancomycin Trough Salicylates Acetaminophen Crossmatch 11/07/20 11/08/20 11/08/20 17:23 00:12 06:11 WBC RBC Hgb Hct MCV MCHC RDW Plt Count Lymph % (Auto) Seg Neutrophils % Seg Neuts % (Manual) Lymphocytes % (Manual) Nucleated RBC % Seg Neutrophils # Seg Neutrophils # Man Lymphocytes # (Manual) Monocytes # (Manual) PT INR ABG pH POC ABG pCO2 POC ABG pO2 ABG pO2 ABG HCO3 ABG O2 Saturation ABG Base Excess ABG Hemoglobin ABG Oxyhemoglobin ABG Sodium ABG Potassium ABG Chloride ABG Glucose Oxyhemoglobin Carboxyhemoglobin Sodium Potassium Chloride Carbon Dioxide BUN Creatinine Glucose POC Glucose 115 H 129 H 109 H Lactic Acid Calcium Phosphorus Magnesium Total Creatine Kinase Troponin T Total Protein Albumin Triglycerides LDL Cholesterol Direct HDL Cholesterol Arterial Blood Glucose Arterial Blood Ionized Calcium Urine pH Urine WBC (Auto) Vancomycin Trough Salicylates Acetaminophen Crossmatch 11/08/20 11/08/20 11/08/20 17:36 23:49 23:58 WBC RBC Hgb Hct MCV MCHC RDW Plt Count Lymph % (Auto) Seg Neutrophils % Seg Neuts % (Manual) Lymphocytes % (Manual) Nucleated RBC % Seg Neutrophils # Seg Neutrophils # Man Lymphocytes # (Manual) Monocytes # (Manual) PT INR ABG pH POC ABG pCO2 POC ABG pO2 ABG pO2 ABG HCO3 ABG O2 Saturation ABG Base Excess ABG Hemoglobin ABG Oxyhemoglobin ABG Sodium ABG Potassium ABG Chloride ABG Glucose Oxyhemoglobin Carboxyhemoglobin Sodium Potassium Chloride Carbon Dioxide BUN Creatinine Glucose 138 H POC Glucose 38 L 36 L Lactic Acid Calcium Phosphorus Magnesium Total Creatine Kinase Troponin T Total Protein Albumin Triglycerides LDL Cholesterol Direct HDL Cholesterol Arterial Blood Glucose Arterial Blood Ionized Calcium Urine pH Urine WBC (Auto) Vancomycin Trough Salicylates Acetaminophen Crossmatch 11/09/20 11/09/20 11/09/20 05:33 06:00 06:00 WBC 13.1 H RBC 2.35 L Hgb 7.6 L D Hct 22.9 L D MCV 97 H MCHC RDW 16.8 H Plt Count Lymph % (Auto) 9.1 L Seg Neutrophils % 84.8 H Seg Neuts % (Manual) Lymphocytes % (Manual) Nucleated RBC % Seg Neutrophils # 11.1 H Seg Neutrophils # Man Lymphocytes # (Manual) Monocytes # (Manual) PT INR ABG pH POC ABG pCO2 POC ABG pO2 ABG pO2 ABG HCO3 ABG O2 Saturation ABG Base Excess ABG Hemoglobin ABG Oxyhemoglobin ABG Sodium ABG Potassium ABG Chloride ABG Glucose Oxyhemoglobin Carboxyhemoglobin Sodium 150 H Potassium 3.4 L D Chloride 119.2 H Carbon Dioxide BUN 30 H Creatinine 0.4 L Glucose 137 H POC Glucose 58 L Lactic Acid Calcium 7.2 L Phosphorus Magnesium Total Creatine Kinase Troponin T Total Protein Albumin Triglycerides LDL Cholesterol Direct HDL Cholesterol Arterial Blood Glucose Arterial Blood Ionized Calcium Urine pH Urine WBC (Auto) Vancomycin Trough Salicylates Acetaminophen Crossmatch 11/09/20 11/09/20 11/10/20 06:08 22:16 13:46 WBC 16.1 H RBC 2.52 L Hgb 8.1 L Hct 25.2 L MCV 100 H MCHC RDW 18.2 H Plt Count Lymph % (Auto) Seg Neutrophils % Seg Neuts % (Manual) 90.0 H Lymphocytes % (Manual) 3.0 L Nucleated RBC % Seg Neutrophils # Seg Neutrophils # Man 14.5 H Lymphocytes # (Manual) 0.5 L Monocytes # (Manual) 1.1 H PT INR ABG pH POC ABG pCO2 POC ABG pO2 ABG pO2 ABG HCO3 ABG O2 Saturation ABG Base Excess ABG Hemoglobin ABG Oxyhemoglobin ABG Sodium ABG Potassium ABG Chloride ABG Glucose Oxyhemoglobin Carboxyhemoglobin Sodium Potassium Chloride Carbon Dioxide BUN Creatinine Glucose POC Glucose 122 H 120 H Lactic Acid Calcium Phosphorus Magnesium Total Creatine Kinase Troponin T Total Protein Albumin Triglycerides LDL Cholesterol Direct HDL Cholesterol Arterial Blood Glucose Arterial Blood Ionized Calcium Urine pH Urine WBC (Auto) Vancomycin Trough Salicylates Acetaminophen Crossmatch 11/10/20 11/10/20 11/11/20 13:46 15:59 11:43 WBC RBC Hgb Hct MCV MCHC RDW Plt Count Lymph % (Auto) Seg Neutrophils % Seg Neuts % (Manual) Lymphocytes % (Manual) Nucleated RBC % Seg Neutrophils # Seg Neutrophils # Man Lymphocytes # (Manual) Monocytes # (Manual) PT INR ABG pH POC ABG pCO2 POC ABG pO2 ABG pO2 ABG HCO3 ABG O2 Saturation ABG Base Excess ABG Hemoglobin ABG Oxyhemoglobin ABG Sodium ABG Potassium ABG Chloride ABG Glucose Oxyhemoglobin Carboxyhemoglobin Sodium 153 H Potassium Chloride 120.6 H Carbon Dioxide BUN 27 H Creatinine 0.3 L Glucose 112 H POC Glucose 40 L 124 H Lactic Acid Calcium 6.8 L Phosphorus Magnesium Total Creatine Kinase Troponin T Total Protein Albumin Triglycerides LDL Cholesterol Direct HDL Cholesterol Arterial Blood Glucose Arterial Blood Ionized Calcium Urine pH Urine WBC (Auto) Vancomycin Trough Salicylates Acetaminophen Crossmatch 11/11/20 11/11/20 11/11/20 14:38 14:38 14:38 WBC 13.8 H RBC 2.43 L Hgb 7.6 L Hct 24.0 L MCV 99 H MCHC RDW 18.0 H Plt Count Lymph % (Auto) Seg Neutrophils % Seg Neuts % (Manual) Lymphocytes % (Manual) Nucleated RBC % Seg Neutrophils # Seg Neutrophils # Man Lymphocytes # (Manual) Monocytes # (Manual) PT 15.0 H INR 1.18 H ABG pH POC ABG pCO2 POC ABG pO2 ABG pO2 ABG HCO3 ABG O2 Saturation ABG Base Excess ABG Hemoglobin ABG Oxyhemoglobin ABG Sodium ABG Potassium ABG Chloride ABG Glucose Oxyhemoglobin Carboxyhemoglobin Sodium 154 H Potassium 3.1 L D Chloride 122.1 H Carbon Dioxide BUN 26 H Creatinine 0.4 L Glucose 140 H POC Glucose Lactic Acid Calcium 7.3 L Phosphorus Magnesium Total Creatine Kinase Troponin T Total Protein Albumin Triglycerides LDL Cholesterol Direct HDL Cholesterol Arterial Blood Glucose Arterial Blood Ionized Calcium Urine pH Urine WBC (Auto) Vancomycin Trough Salicylates Acetaminophen Crossmatch 11/11/20 11/11/20 11/12/20 18:39 18:42 00:03 WBC RBC Hgb Hct MCV MCHC RDW Plt Count Lymph % (Auto) Seg Neutrophils % Seg Neuts % (Manual) Lymphocytes % (Manual) Nucleated RBC % Seg Neutrophils # Seg Neutrophils # Man Lymphocytes # (Manual) Monocytes # (Manual) PT INR ABG pH POC ABG pCO2 POC ABG pO2 ABG pO2 ABG HCO3 ABG O2 Saturation ABG Base Excess ABG Hemoglobin ABG Oxyhemoglobin ABG Sodium ABG Potassium ABG Chloride ABG Glucose Oxyhemoglobin Carboxyhemoglobin Sodium Potassium Chloride Carbon Dioxide BUN Creatinine Glucose POC Glucose 45 L 66 L 108 H Lactic Acid Calcium Phosphorus Magnesium Total Creatine Kinase Troponin T Total Protein Albumin Triglycerides LDL Cholesterol Direct HDL Cholesterol Arterial Blood Glucose Arterial Blood Ionized Calcium Urine pH Urine WBC (Auto) Vancomycin Trough Salicylates Acetaminophen Crossmatch 11/12/20 11/12/20 11/12/20 05:44 08:33 08:33 WBC 13.4 H RBC 2.35 L Hgb 7.5 L Hct 23.7 L MCV 101 H MCHC RDW 19.7 H Plt Count Lymph % (Auto) Seg Neutrophils % Seg Neuts % (Manual) Lymphocytes % (Manual) Nucleated RBC % Seg Neutrophils # Seg Neutrophils # Man Lymphocytes # (Manual) Monocytes # (Manual) PT INR ABG pH POC ABG pCO2 POC ABG pO2 ABG pO2 ABG HCO3 ABG O2 Saturation ABG Base Excess ABG Hemoglobin ABG Oxyhemoglobin ABG Sodium ABG Potassium ABG Chloride ABG Glucose Oxyhemoglobin Carboxyhemoglobin Sodium 154 H Potassium 2.9 L* Chloride 121.4 H Carbon Dioxide BUN 26 H Creatinine 0.4 L Glucose 153 H POC Glucose 114 H Lactic Acid Calcium 7.3 L Phosphorus Magnesium Total Creatine Kinase Troponin T Total Protein Albumin Triglycerides LDL Cholesterol Direct HDL Cholesterol Arterial Blood Glucose Arterial Blood Ionized Calcium Urine pH Urine WBC (Auto) Vancomycin Trough Salicylates Acetaminophen Crossmatch 11/12/20 11/12/20 11/13/20 11:38 17:17 05:28 WBC RBC Hgb Hct MCV MCHC RDW Plt Count Lymph % (Auto) Seg Neutrophils % Seg Neuts % (Manual) Lymphocytes % (Manual) Nucleated RBC % Seg Neutrophils # Seg Neutrophils # Man Lymphocytes # (Manual) Monocytes # (Manual) PT INR ABG pH POC ABG pCO2 51.4 H POC ABG pO2 41.7 L ABG pO2 ABG HCO3 ABG O2 Saturation ABG Base Excess ABG Hemoglobin 9.1 L ABG Oxyhemoglobin 72.2 L ABG Sodium 151.1 H ABG Potassium 3.2 L ABG Chloride 122.0 H ABG Glucose 191 H Oxyhemoglobin Carboxyhemoglobin Sodium Potassium Chloride Carbon Dioxide BUN Creatinine Glucose POC Glucose 125 H 127 H Lactic Acid Calcium Phosphorus Magnesium Total Creatine Kinase Troponin T Total Protein Albumin Triglycerides LDL Cholesterol Direct HDL Cholesterol Arterial Blood Glucose 191 H Arterial Blood Ionized Calcium Urine pH Urine WBC (Auto) Vancomycin Trough Salicylates Acetaminophen Crossmatch 11/13/20 11/13/20 11/13/20 10:46 23:15 23:15 WBC 12.2 H RBC 2.41 L Hgb 7.7 L Hct 24.5 L MCV 102 H MCHC RDW 23.0 H Plt Count Lymph % (Auto) Seg Neutrophils % Seg Neuts % (Manual) Lymphocytes % (Manual) Nucleated RBC % Seg Neutrophils # Seg Neutrophils # Man Lymphocytes # (Manual) Monocytes # (Manual) PT INR ABG pH POC ABG pCO2 POC ABG pO2 ABG pO2 ABG HCO3 ABG O2 Saturation ABG Base Excess ABG Hemoglobin ABG Oxyhemoglobin ABG Sodium ABG Potassium ABG Chloride ABG Glucose Oxyhemoglobin Carboxyhemoglobin Sodium Potassium Chloride Carbon Dioxide BUN Creatinine Glucose POC Glucose 153 H Lactic Acid Calcium Phosphorus Magnesium Total Creatine Kinase Troponin T 0.123 H* Total Protein Albumin Triglycerides LDL Cholesterol Direct HDL Cholesterol Arterial Blood Glucose Arterial Blood Ionized Calcium Urine pH Urine WBC (Auto) Vancomycin Trough Salicylates Acetaminophen Crossmatch 11/13/20 11/13/20 11/14/20 23:15 Unknown 05:26 WBC RBC Hgb Hct MCV MCHC RDW Plt Count Lymph % (Auto) Seg Neutrophils % Seg Neuts % (Manual) Lymphocytes % (Manual) Nucleated RBC % Seg Neutrophils # Seg Neutrophils # Man Lymphocytes # (Manual) Monocytes # (Manual) PT INR ABG pH 7.295 L POC ABG pCO2 56.0 H POC ABG pO2 49.1 L ABG pO2 ABG HCO3 ABG O2 Saturation ABG Base Excess ABG Hemoglobin 8.3 L ABG Oxyhemoglobin 77.1 L ABG Sodium 150.5 H ABG Potassium 3.3 L ABG Chloride 121.0 H ABG Glucose 187 H Oxyhemoglobin Carboxyhemoglobin Sodium 152 H Potassium 3.3 L Chloride 117.8 H Carbon Dioxide BUN 25 H Creatinine 0.4 L Glucose 123 H POC Glucose 46 L Lactic Acid Calcium 7.5 L Phosphorus Magnesium Total Creatine Kinase Troponin T Total Protein Albumin Triglycerides LDL Cholesterol Direct HDL Cholesterol Arterial Blood Glucose 187 H Arterial Blood Ionized Calcium Urine pH Urine WBC (Auto) Vancomycin Trough Salicylates Acetaminophen Crossmatch 11/14/20 06:26 WBC RBC Hgb Hct MCV MCHC RDW Plt Count Lymph % (Auto) Seg Neutrophils % Seg Neuts % (Manual) Lymphocytes % (Manual) Nucleated RBC % Seg Neutrophils # Seg Neutrophils # Man Lymphocytes # (Manual) Monocytes # (Manual) PT INR ABG pH POC ABG pCO2 POC ABG pO2 ABG pO2 ABG HCO3 ABG O2 Saturation ABG Base Excess ABG Hemoglobin ABG Oxyhemoglobin ABG Sodium ABG Potassium ABG Chloride ABG Glucose Oxyhemoglobin Carboxyhemoglobin Sodium Potassium Chloride Carbon Dioxide BUN Creatinine Glucose POC Glucose 135 H Lactic Acid Calcium Phosphorus Magnesium Total Creatine Kinase Troponin T Total Protein Albumin Triglycerides LDL Cholesterol Direct HDL Cholesterol Arterial Blood Glucose Arterial Blood Ionized Calcium Urine pH Urine WBC (Auto) Vancomycin Trough Salicylates Acetaminophen Crossmatch Allied health notes reviewed: nursing
--- NOTE | 2020-11-14 15:22 | Progress Note ---
Assessment and Plan Cultures: 10/26/2020 tracheal aspirate culture: MRSA 10/26/2020 blood culture: Proteus 10/27/2020 urine culture: Mixed hien A/P: 75-year-old male, [facility] resident with seizure disorder, hypertension, depression, hyperlipidemia, chronic encephalopathy was sent to the hospital with worsening mental status: #Septic shock, Proteus bacteremia: Off pressors, leukocytosis better. multifactorial from infected sacral decubitus ulcer, bilateral pneumonia, UTI. Worsening leukocytosis with acute diarrhea 1L loose stool overnight ? C. difficile, leukocytosis improving today #Acute diarrhea: ? C. difficile, improved on vancomycin p.o. Diarrhea improved, Cdiff test was not able to be done. #Necrotic, infected sacral decubitus ulcer: underwent debridement 10/29/2020, als o noted to have brittle coccyx consistent with osteomyelitis. #UTI: UA with significant pyuria. #Bilateral pneumonia: Noted on CT. Possibly some aspiration. Sputum culture positive for MRSA. Received vancomycin IV for 7 days. #FAZAL: Renally dose antibiotics. #Acute respiratory failure: on the vent. Extubated #PVD: SFA occlusion. Not a candidate for revascularization per vascular Recs: -Monitor leukocytosis which is improving/stable -Continue empiric vancomycin 125 mg p.o. 4 times daily D10 of 10 -Completed empiric ceftriaxone and metronidazole. Dr. Starr covering this weekend Eliezer Jack MD [facility] ([facility] O: [phone] F: [phone] Subjective Date of service: 11/14/20 Principal diagnosis: Acute Resp Fail, Septic Shock, Sacral Ulcer, AF with RVR Interval history: Afebrile, white count 12.2. On BiPAP. Imaging personally reviewed: Chest x-ray: Improvement in aeration Objective - Exam Narrative Exam: General appearance: alert in NAD on BiPAP Eyes: anicteric sclerae, moist conjunctivae; no lid-lag; PERRLA HENT: Normocephalic, Atraumatic; normal external ears, nares openNeck: supple, tracheal midline Lungs: Diminished breath sound bilaterally CV: RRR Abdomen: Soft, nontender Extremities: Bilateral upper extremity and lower extremity edema Skin: No rash. Extensive scrotal edema Psych: Not agitated Neuro: Alert, open eyes, follows commands - Constitutional Vitals: Vital Signs Temp Pulse Resp BP Pulse Ox 97.6 F 83 13 150/99 100 11/14/20 07:51 11/14/20 15:00 11/14/20 15:00 11/14/20 15:00 11/14/20 15:00 Temperature -Last 24 Hours Temperature 97.6 F Temperature 97.8 F Temperature 96.8 F Temperature 97.4 F Temperature 98.2 F - Labs CBC & Chem 7: 11/13/20 23:15 11/13/20 23:15 Labs: Abnormal lab results 11/13/20 11/13/20 11/13/20 Range/Units 23:15 23:15 23:15 WBC 12.2 H (4.5-11.0) K/mm3 RBC 2.41 L (3.65-5.03) M/mm3 Hgb 7.7 L (11.8-15.2) gm/dl Hct 24.5 L (35.5-45.6) % MCV 102 H (84-94) fl RDW 23.0 H (13.2-15.2) % Sodium 152 H (137-145) mmol/L Potassium 3.3 L (3.6-5.0) mmol/L Chloride 117.8 H (98-107) mmol/L BUN 25 H (9-20) mg/dL Creatinine 0.4 L (0.8-1.3) mg/dL Glucose 123 H (75-100) mg/dL POC Glucose (70-105) mg/dL Calcium 7.5 L (8.4-10.2) mg/dL Troponin T 0.123 H* (0.00-0.029) ng/mL 11/14/20 11/14/20 Range/Units 05:26 06:26 WBC (4.5-11.0) K/mm3 RBC (3.65-5.03) M/mm3 Hgb (11.8-15.2) gm/dl Hct (35.5-45.6) % MCV (84-94) fl RDW (13.2-15.2) % Sodium (137-145) mmol/L Potassium (3.6-5.0) mmol/L Chloride (98-107) mmol/L BUN (9-20) mg/dL Creatinine (0.8-1.3) mg/dL Glucose (75-100) mg/dL POC Glucose 46 L 135 H (70-105) mg/dL Calcium (8.4-10.2) mg/dL Troponin T (0.00-0.029) ng/mL
--- NOTE | 2020-11-14 17:14 | Electrocardiograph Report ---
[facility] Test Date: 2020-11-14 Test Time: 00:57:53 Pat Name: JESUS FERRARO Department: Room: A265 1 Gender: M [employer] Operator: AZIZA : 1945 Requested By: DALLIN SIDDIQUI Order Number: [id number] Reading MD: Luke Hall Measurements Intervals [place] Rate: 82 P: 38 CT: 176 QRS: -24 QRSD: 106 T: 104 QT: 507 QTc: 594 Interpretive Statements Sinus rhythm Low voltage, precordial leads Nonspecific T abnormalities, lateral leads Prolonged QT interval Compared to ECG 11/13/2020 05:20:51 Electronically Signed On 11-14-2020 17:13:57 EDT by Luke Hall
[2020-11-14 22:36] LABS: Hematocrit 27.8 % (35.5-45.6); Mean Corpuscular HGB Conc 33 % (32-34); Mean Corpuscular Volume 101 fl (84-94); Platelet Count 370 K/mm3 (140-440); Red Blood Count 2.75 M/mm3 (3.65-5.03)
[2020-11-14 22:48] LABS: Blood Urea Nitrogen 23 mg/dL (9-20); Calcium 7.4 mg/dL (8.4-10.2); Hemolysis Index 33
[2020-11-14 22:54] LABS: Red Cell Distribution Width 22.8 % (13.2-15.2)
[2020-11-14 22:55] LABS: BUN/Creatinine Ratio 77
[2020-11-15] MEDS: VANCOMYCIN 250 MG/10 ML ORAL LIQD PO SCH ×3 (00:30→12:00)
[2020-11-15] MEDS ORDERED: POTASSIUM CHLORIDE 20 MEQ PACKET FEEDTUBE ONE (02:40)
[2020-11-15] MEDS: DOPamine/D5W 800 MG/250 ML 800 MG/250 ML BAG IV SCH (05:02)
[2020-11-15 05:15] LABS: Blood Urea Nitrogen 22 mg/dL (9-20); Calcium 7.5 mg/dL (8.4-10.2); Hemolysis Index 11
[2020-11-15 05:19] LABS: BUN/Creatinine Ratio 73
[2020-11-15] MEDS: MIDODRINE 5 MG TAB PO SCH ×3 (08:26→16:43)
[2020-11-15] MEDS: ENOXAPARIN 40 MG/0.4 ML INJ SUB-Q SCH (09:03)
[2020-11-15] MEDS: FAMOTIDINE 20 MG TAB PO SCH ×2 (09:03→22:58)
[2020-11-15] MEDS: DEXTROSE 5% IN WATER 1,000 ML IV SCH (09:06)
--- NOTE | 2020-11-15 11:16 | Progress Note ---
Assessment and Plan no acute events overnight no further andres wean dopamine gtt poor prognosis - Patient Problems (1) FAZAL (acute kidney injury) Current Visit: Yes Status: Acute (2) Acute encephalopathy Current Visit: Yes Status: Acute (3) Acute metabolic encephalopathy Current Visit: Yes Status: Acute (4) Anemia Current Visit: Yes Status: Acute (5) Atrial fibrillation with RVR Current Visit: Yes Status: Acute (6) Elevated lactic acid level Current Visit: Yes Status: Acute (7) Hypomagnesemia Current Visit: Yes Status: Acute Subjective Principal diagnosis: Acute Resp Fail, Septic Shock, Sacral Ulcer, AF with RVR Interval history: no acute events overnight Objective Vital Signs Temp Pulse Pulse Pulse Pulse Resp Resp 11/15/20 08:00 97.4 F L 11/15/20 06:48 11/15/20 04:00 91 H 82 21 11/15/20 03:55 78 23 11/15/20 00:00 97.4 F L 91 H 21 11/14/20 23:05 62 24 11/14/20 23:00 76 15 11/14/20 20:22 88 24 11/14/20 20:00 91 H 21 11/14/20 19:40 80 22 11/14/20 19:00 97.5 F L 11/14/20 16:00 74 91 H 21 11/14/20 15:00 83 13 11/14/20 14:45 90 25 H 11/14/20 14:30 76 25 H 11/14/20 14:16 86 22 11/14/20 14:00 106 H 19 11/14/20 13:45 82 17 11/14/20 13:30 76 23 11/14/20 13:16 93 H 17 11/14/20 13:13 97 H 30 H 11/14/20 13:00 89 15 11/14/20 12:53 95 H 29 H 11/14/20 12:46 74 14 11/14/20 12:30 79 15 11/14/20 12:16 90 22 11/14/20 12:00 97 H 88 13 11/14/20 11:45 92 H 12 11/14/20 11:30 91 H 14 11/14/20 11:15 94 H 13 BP Pulse Ox 11/15/20 08:00 11/15/20 06:48 90 11/15/20 04:00 181/81 100 04/17/21 03:55 175/89 96 11/15/20 00:00 100 11/14/20 23:05 146/91 98 11/14/20 23:00 171/81 97 11/14/20 20:22 11/14/20 20:00 100 11/14/20 19:40 130/76 100 11/14/20 19:00 11/14/20 16:00 100 11/14/20 15:00 150/99 100 11/14/20 14:45 149/105 100 11/14/20 14:30 146/90 94 11/14/20 14:16 148/89 100 11/14/20 14:00 154/93 100 11/14/20 13:45 154/93 97 11/14/20 13:30 161/87 98 11/14/20 13:16 154/94 98 11/14/20 13:13 11/14/20 13:00 139/96 95 11/14/20 12:53 146/83 95 11/14/20 12:46 146/83 95 11/14/20 12:30 138/88 97 11/14/20 12:16 149/90 97 11/14/20 12:00 149/90 93 11/14/20 11:45 137/90 94 11/14/20 11:30 149/91 93 11/14/20 11:15 149/90 92 - Physical Examination General: Other (lethargic ) HEENT: Positive: Normocephaly Neck: Positive: neck supple, trachea midline Neuro: Positive: Grossly Intact, Other (lethargic) Abdomen: Positive: Soft Skin: Positive: Wound. Negative: Rash Musculoskeletal: No Pain Extremities: Present: upper extr. pulses, lower extr. pulses, edema, Other (chronic skin changes noted) - Labs and Meds CBC 11/14/20 Range/Units 22:26 WBC 9.9 (4.5-11.0) K/mm3 RBC 2.75 L (3.65-5.03) M/mm3 Hgb 9.0 L (11.8-15.2) gm/dl Hct 27.8 L (35.5-45.6) % Plt Count 370 (140-440) K/mm3 Comprehensive Metabolic Panel 11/14/20 11/15/20 Range/Units 22:26 04:28 Sodium 147 H 152 H (137-145) mmol/L Potassium 3.3 L 3.7 (3.6-5.0) mmol/L Chloride 114.3 H 118.1 H (98-107) mmol/L Carbon Dioxide 26 25 (22-30) mmol/L BUN 23 H 22 H (9-20) mg/dL Creatinine 0.3 L 0.3 L (0.8-1.3) mg/dL Glucose 209 H 190 H (75-100) mg/dL Calcium 7.4 L 7.5 L (8.4-10.2) mg/dL - Imaging and Cardiology EKG: report reviewed, image reviewed Echo: report reviewed (10/28/2020- EF 55-60%, no significant valvular abnormalities) - Allied health notes Allied health notes reviewed: nursing
--- NOTE | 2020-11-15 13:00 | Progress Note ---
Assessment and Plan Assessment and plan: This is a 75-year-old male who is a assisted resident with seizure disorder, hypertension, depression, hyperlipidemia, hypoglycemia, dysphagia, and encephalopathy who presents to the emergency department on 10/26 via EMS for tachypnea, dry mucous membranes and hypoxia. Patient was hypotensive, febrile to 103 degrees and hypoxic in the emergency department therefore he was intubated and central IV access was obtained. Patient received 3.5 L of IV fluid in the emergency department. Patient was admitted to the hospital service with consults to CCM, surgery, WOCN and ID for Sepsis, acute kidney injury, urinary tract infection, acute respiratory failure, electrolyte imbalances, infected sacral wound and bilateral pneumonia. Sepsis Acute respiratory failure Infected sacral wound s/p debridement with surgery Generalized anasarca possible acute diastolic congestive heart failure Anemia s/p 2 units prbc Bilateral pleural effusion Right and left lung atelectasis secondary to mucous plug Proteus bacteremia MRSA pneumonia Urine tract infection Acute kidney injury with vasomotor Nephropathy Acute Diarrhea ?C.diff- Test was not peformed Leukocytosis SFA occlusion - Not a candidate for surgery per Vascular SVT- Resolved Hyponatremia- now Hypernatremia Hypoglycemia Hyperchloremia Hypocalcemia Hypomagnesemia Hypophosphatemia Lactic acidosis 10/27: Patient received additional 4 L LR for fluid resuscitation and CV monitoring was initiated. Patient is on Levophed. ID added Flagyl to vancomyc in and cefepime. His trach aspirate grew staph coccus aureus. At the time my examination patient the fentanyl drip was held by RN and he was on 14 MCG of Levophed. This morning he was on assist control 450/20/6/.100. We will give additional bolus of fluids with goal CVP 10-12 and repeat labs in AM. Surgery was consulted to possible debridement. 10/28: Overnight it was noted that patient went into SVT and he was given adenosine 6 mg/12 mg / 12 mg once and was started on a Cardizem drip after no response to amnio bolus and cardiology was consulted. Currently patient remains on Levophed drip and is hypotensive and received additional 2 L of bolus for goal CVP of 10-12. Infectious disease changed cefepime/Flagyl to meropenem for GNR in his blood cultures 09/04 and will continue vancomycin. Patient currently was not well controlled on max Cardizem and cardiology initiated amiodarone. Patient still is very tachycardic. Patient is hypomagnesemic and we will replete his Mg and recheck level. We will give the patient additional to complete resolve LR this afternoon. Patient has a standing order per [facility] to bolus the patient with LR for CVP goal of 10-12. This morning he is hyperchlorm eic, metabolic acidotic (bicarb drip initiated) and his BUN/creatinine slightly elevated. Patient still remains lactic acidotic. 10/29: Patient's blood culture speciated to Proteus and his tracheal aspirate is MRSA. He is currently on ceftriaxone, Flagyl and vancomycin. Patient heart rate consistently is 110-150s and cardiology has given him an amiodarone bolus today and he remains on amiodarone drip. He looks much started on IV digoxin. This morning 4 L LR bolus was ordered and we will bolus an additional 4 L of LR this afternoon. Patient still has lactic acidosis, metabolic acidosis, l eukocytosis and hyperchloremia. On examination this morning patient is more edematous and he remains on Levophed and amnio drip. 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 Remains on amio, levo and sedated with fentanyl. He is hypokalemic today which was repleted, h/h 02/18 and he is being type and crossed today with 2 units PRBC ordered to be transfused. Plt drop note d, heparin discontinued and HIT ordered. Bicarb gtt discontinued. No acute events overnight. 10/31: Patient hypomagnesemia today which was repleted and cardiology has changed his IV amiodarone to p.o. Patient will get albumin per [facility]. At the time my examination patient is on assist control 450/20/6/0.40. 11/03: At the time my examination patient is on assist control 450/20/6/0.25 and sedated with fentanyl and on Levophed at 4.Patient's leukocytosis is improving he received Albumin this weekend. Patient is hypokalemic, hypomagnesemic, hypocalcemic today. We will repeat his electrolytes and recheck a BMP in the a.m. Patient received 2 units PRBC on 10/30 and his hemoglobin has been trending down. We will recheck in the a.m. 11/04: At the time of my examination patient was on Levophed 3 mcg and on VZV/CPAP 450/20/6/0.35. Patient still has leukocytosis, respiratory alkalosis, hyponatremia, hypochloremia, hypocalcemia. Today his magnesium and potassium repleted with bolus of potassium 4/magnesium 2. He received 60 mcg KCl p.o., 40 mEq of KCl IV and 2 g of magnesium sulfate. We will recheck BMP and mag and a.m. Surgery has deemed the patient to unstable for further debulking. We also consulted vascular surgery for PVD as patient has discoloration to BLE /feet. 11/05: Vascular surgery will obtain bilateral lower extremity arterial duplex to evaluate arterial flow and recommends adding as FWF to tube feedings in assisting to wean off of vasopressors. Patient has hypokalemia, h ypophosphatemia and normal to low magnesium. Magnesium, potassium and phosphate have been repleted. Patient still remains on ventilator support but on CPAP trial this morning. Patient HIT is still pending. This morning at the time of my examination patient was on assist-control 450/20/6/0.35 and he tolerated CPAP trial for 4 hours yesterday. He was on Levophed 0.5 and his rectal tube output was noted at 1000 mL. 11/06: This morning patient was on a CPAP trial and became hypoxic with SPO2 into the 80s and was switched back to assist control. Patient's vent settings are assist control tidal and 450, rate 20, PEEP 6, FiO2 0.25. Today patient has leukocytosis, hypernatremia, hyperchloremia, hypocalcemia and hypophosphatemia. We will repeat a phosphate. His free water flushes have been increased and his magnesium has been repleted again. Patient has been started on Lovenox given improvement in his platelet count and on midodrine to help keep Levophed off. Infectious disease will continue p.o. vancomycin for total of 10 days. 11/07: Patient failed his CPAP trial yesterday and has been placed on CPAP 05/06 again this morning by RT. Overnight patient was rested on assist control tolerance by 50, rate of 20, pressure support 6 and FiO2 30%. His lab work is still pending for this morning. On repeat his phosphorus was 4.50 yesterday and repletion was discontinued. 11/08/2020; patient is off pressors currently on midodrine. Patient is on ceftriaxone and vancomycin. Patient is on assist control. Patient was evaluated by vascular surgery for peripheral vascular disease with SFA occlusion and recommend no intervention at this time. Prognosis is guarded. Patient is on 2 L of intranasal oxygen. We will put speech therapy evaluation. 11/09/2020; patient is currently off pressors and on midodrine. Continue with ceftriaxone, Flagyl and vancomycin per ID recommendation. Patient's blood culture grew Proteus mirabilis and tracheal aspirate grew MRSA. Patient was evaluated by vascular surgery for PVD with SFA occlusion and recommend no intervention at this time. Patient is on 2 L of intranasal oxygen. Currently patient is on tube feeding and follow speech therapy evaluation. 11/10: Overnight noted to have increased RR, ? Awaiting speech eval considering patient still on Tube feeds. Continue to monitor Hypernatremia. Antibiotics today will be D109/14. Will continue discharge planning on discussion with CM. Patient nonrebreather. Possibly back on congestive heart failure will need appropriate diuresis. Transferred back to [facility]. Discussed with environmental specialist and also with cardiology. 11/11: Remains lethargic remains in respiratory distress chest x-ray shows right lung collapse likely secondary to mucous plug. Discussed with environmental specialist will likely undergo a bronchoscopy today. We will also continue to monitor as we did suggest possible pleural effusion which we think may be less likely but if that seems to be the case we will send patient for thoracentesis following the bronchoscopy. Continue to monitor hemoglobin continue to monitor diarrhea antibiotics management per infectious disease. I did speak and update patient's cousin yesterday. Patient still with edema will await cardiology reevaluation for possible further diuresis. 11/12: Patient for Bronchoscopy today. Continue supportive care 11/13: Patient Clinically improving, tolerated Bronchoscopy yesterday. Awaiting am labs today. Overnight had bradycardia. Continue weaning oxygen. Discussed with drawer in plain loom patient did have bronchial plug plus pleural effusion but will address. Will monitor serial x-rays. Discussed with nursing staff about my discussion with the brother. Continue supportive care PER Brother,([phone] patient has had recurrent knee aspiration Cardiology to re-evaluate today for Bradycardia noted overnight 11/14: Patient had a repeat bronchoscopy yesterday of the right lung due to mucous plug. Kids Activities Coach did have a conversation with the cousin as one of the considerations may be a trach due to recurrent pulmonary mucous plug and also significant debility for patient's overall medical condition. And his inability to maintain his airway. We will start him on a low round of D5 until diet is established. We will continue to monitor clinical status this morning. Plan discussed with nursing staff patient and also with boom stick worker 11/15: Continues to show some improvement, will check CXR today. Wean oxygen as tolerated, will likely need Trach per pulmonary. WBC improving, will monitor Sodium level. Patient on dopamin. The high probability of a clinically significant, sudden or life threatening deterioration of the [pulmonary, cardiac] system(s) required my full and direct attention, intervention and personal management. The aggregate critical care time was [35] minutes. This time is in addition to time spent performing reported procedures but includes the following: [X] Data Review and interpretation [X] Patient assessment and monitoring of vital signs [X] Documentation [X] Medication orders and management History Interval history: Patient seen and examined, remains on BiPAP this morning. Required bronchoscopy of the right long as he had a mucous plug also. Overnight reported by nurse to have low blood sugar. Hospitalist Physical - Physical exam Narrative exam: VITAL SIGNS: Reviewed. GENERAL: The patient appears normally developed, on BiPAP. vital signs as documented. HEAD: No signs of head trauma. EYES: Pupils are equal. Extraocular motions intact. EARS: Hearing grossly intact. MOUTH: Oropharynx is normal. NECK: No adenopathy, no JVD. CHEST: Chest with crackles breath sounds bilaterally. No wheezes CARDIAC: Regular rate and rhythm. S1 and S2, without murmurs, gallops, or rubs. VASCULAR: +2 bilateral pitting edema. Peripheral pulses normal and equal in all extremities. ABDOMEN: Soft, non tender and non distended. No rebound or guarding, and no masses palpated. Bowel Sounds normal. MUSCULOSKELETAL: Good range of motion of all major joints. Extremities without clubbing, cyanosis. +2 bilateral pitting edema. NEUROLOGIC EXAM: Awake but lethargic and oriented x 3 No focal sensory or strength deficits. Speech garbled speech but improved compared to yesterday. Follows commands. PSYCHIATRIC: Mood normal. SKIN: detail exam as documented in skin assessment - Constitutional Vitals: Temp Pulse Resp BP Pulse Ox 97.4 F L 82 21 181/81 90 11/15/20 08:00 11/15/20 04:00 11/15/20 04:00 11/15/20 04:00 11/15/20 06:48 General appearance: Present: no acute distress, other (Intubated, resting comfortably) HEART Score - HEART Score EKG: Non-specific Age: > 65 Risk factors: > 3 risk factors or hx of atherosclerotic disease Troponin: Troponin T 0.123 ng/mL (0.00-0.029) H* 11/13/20 23:15 Troponin: < normal limit - Critical Actions Critical Actions: 4-6 pts:12-16.6% risk of adverse cardiac event. Should be admitted Results - Labs CBC & Chem 7: 11/14/20 22:26 11/15/20 04:28 Labs: Laboratory Last Values WBC 9.9 K/mm3 (4.5-11.0) 11/14/20 22:26 RBC 2.75 M/mm3 (3.65-5.03) L 11/14/20 22:26 Hgb 9.0 gm/dl (11.8-15.2) L 11/14/20 22:26 Hct 27.8 % (35.5-45.6) L 11/14/20 22:26 MCV 101 fl (84-94) H 11/14/20 22:26 MCH 33 pg (28-32) H 11/14/20 22:26 MCHC 33 % (32-34) 11/14/20 22:26 RDW 22.8 % (13.2-15.2) H 11/14/20 22:26 Plt Count 370 K/mm3 (140-440) 11/14/20 22:26 Lymph % (Auto) 9.1 % (13.4-35.0) L 11/09/20 06:00 [place] % (Auto) 5.4 % (0.0-7.3) 11/09/20 06:00 Eos % (Auto) 0.3 % (0.0-4.3) 11/09/20 06:00 Baso % (Auto) 0.4 % (0.0-1.8) 11/09/20 06:00 Lymph # (Auto) 1.2 K/mm3 (1.2-5.4) 11/09/20 06:00 [place] # (Auto) 0.7 K/mm3 (0.0-0.8) 11/09/20 06:00 Eos # (Auto) 0.0 K/mm3 (0.0-0.4) 11/09/20 06:00 Baso # (Auto) 0.0 K/mm3 (0.0-0.1) 11/09/20 06:00 Add Manual Diff Complete 11/10/20 13:46 Total Counted 100 11/10/20 13:46 Seg Neutrophils % 84.8 % (40.0-70.0) H 11/09/20 06:00 Seg Neuts % (Manual) 90.0 % (40.0-70.0) H 11/10/20 13:46 Band Neutrophils % 17.0 % 10/27/20 03:30 Lymphocytes % (Manual) 3.0 % (13.4-35.0) L 11/10/20 13:46 Monocytes % (Manual) 7.0 % (0.0-7.3) 11/10/20 13:46 Eosinophils % (Manual) 2.0 % (0.0-4.3) 10/27/20 03:30 Metamyelocytes % 4.0 % 10/27/20 03:30 Nucleated RBC % Not Reportable 11/10/20 13:46 Seg Neutrophils # 11.1 K/mm3 (1.8-7.7) H 11/09/20 06:00 Seg Neutrophils # Man 14.5 K/mm3 (1.8-7.7) H 11/10/20 13:46 Band Neutrophils # 0.0 K/mm3 11/10/20 13:46 Lymphocytes # (Manual) 0.5 K/mm3 (1.2-5.4) L 11/10/20 13:46 Abs React Lymphs (Man) 0.0 K/mm3 11/10/20 13:46 Monocytes # (Manual) 1.1 K/mm3 (0.0-0.8) H 11/10/20 13:46 Eosinophils # (Manual) 0.0 K/mm3 (0.0-0.4) 11/10/20 13:46 Basophils # (Manual) 0.0 K/mm3 (0.0-0.1) 11/10/20 13:46 Metamyelocytes # 0.0 K/mm3 11/10/20 13:46 Myelocytes # 0.0 K/mm3 11/10/20 13:46 Promyelocytes # 0.0 K/mm3 11/10/20 13:46 Blast Cells # 0.0 K/mm3 11/10/20 13:46 WBC Morphology Not Reportable 11/10/20 13:46 Hypersegmented Neuts Not Reportable 11/10/20 13:46 Hyposegmented Neuts Not Reportable 11/10/20 13:46 Hypogranular Neuts Not Reportable 11/10/20 13:46 Smudge Cells Not Reportable 11/10/20 13:46 Toxic Granulation Not Reportable 11/10/20 13:46 Toxic Vacuolation Not Reportable 11/10/20 13:46 Dohle Bodies Not Reportable 11/10/20 13:46 Pelger-Huet Anomaly Not Reportable 11/10/20 13:46 Kassi Rods Not Reportable 11/10/20 13:46 Platelet Estimate Not Reportable 11/10/20 13:46 Clumped Platelets Not Reportable 11/10/20 13:46 Plt Clumps, EDTA Not Reportable 11/10/20 13:46 Large Platelets Not Reportable 11/10/20 13:46 Giant Platelets Not Reportable 11/10/20 13:46 Platelet Satelliting Not Reportable 11/10/20 13:46 Plt Morphology Comment Not Reportable 11/10/20 13:46 RBC Morphology Not Reportable 11/10/20 13:46 Dimorphic RBCs Yes 11/10/20 13:46 Polychromasia Not Reportable 11/10/20 13:46 Hypochromasia Not Reportable 11/10/20 13:46 Poikilocytosis Not Reportable 11/10/20 13:46 Anisocytosis Not Reportable 11/10/20 13:46 Microcytosis Rare 11/10/20 13:46 Macrocytosis Rare 11/10/20 13:46 Spherocytes Not Reportable 11/10/20 13:46 Pappenheimer Bodies Not Reportable 11/10/20 13:46 Sickle Cells Not Reportable 11/10/20 13:46 Target Cells Not Reportable 11/10/20 13:46 Tear Drop Cells Not Reportable 11/10/20 13:46 Ovalocytes Not Reportable 11/10/20 13:46 Helmet Cells Not Reportable 11/10/20 13:46 [place] Bodies Not Reportable 11/10/20 13:46 [place] Rings Not Reportable 11/10/20 13:46 Childs Cells Not Reportable 11/10/20 13:46 Bite Cells Not Reportable 11/10/20 13:46 Crenated Cell Not Reportable 11/10/20 13:46 Elliptocytes Not Reportable 11/10/20 13:46 Acanthocytes (Spur) Not Reportable 11/10/20 13:46 Rouleaux Not Reportable 11/10/20 13:46 Hemoglobin C Crystals Not Reportable 11/10/20 13:46 Schistocytes Not Reportable 11/10/20 13:46 Malaria parasites Not Reportable 11/10/20 13:46 Richard Bodies Not Reportable 11/10/20 13:46 Hem Pathologist Commnt No 11/10/20 13:46 PT 15.0 Sec. (12.2-14.9) H 11/11/20 14:38 INR 1.18 (0.87-1.13) H 11/11/20 14:38 APTT 27.9 Sec. (24.2-36.6) 10/26/20 17:25 Heparin Anti-Xa, Unfract Negative (Negative) 11/03/20 11:01 ABG pH 7.295 (7.320-7.450) L 11/13/20 Unknown POC ABG pCO2 56.0 mmHg (32.0-48.0) H 11/13/20 Unknown ABG pCO2 35.4 mm Hg 11/07/20 12:55 POC ABG pO2 49.1 mmHg (83-108) L 11/13/20 Unknown ABG pO2 82.0 mm Hg (80.0-90.0) 11/07/20 12:55 POC ABG HCO3 26.6 11/13/20 Unknown ABG HCO3 23.4 mmol/L (20.0-26.0) 11/07/20 12:55 ABG O2 Saturation 78 (0-100) 11/13/20 Unknown ABG O2 Content 10.5 (0.0-44) 11/07/20 12:55 POC ABG Base Excess -0.2 11/13/20 Unknown ABG Base Excess -0.5 mmol/L (-2.0-3.0) 11/07/20 12:55 ABG Hemoglobin 8.3 (12.0-17.5) L 11/13/20 Unknown ABG Oxyhemoglobin 77.1 (94-98) L 11/13/20 Unknown ABG Carboxyhemoglobin 1.4 % (0.0-5.0) 11/07/20 12:55 ABG Methemoglobin 0.3 (0.0-1.5) 11/13/20 Unknown ABG Sodium 150.5 mmol/L (136.0-145.0) H 11/13/20 Unknown ABG Potassium 3.3 mmol/L (3.40-4.50) L 11/13/20 Unknown ABG Chloride 121.0 mmol/L (98-107) H 11/13/20 Unknown ABG Glucose 187 mg/dL (65-95) H 11/13/20 Unknown Oxyhemoglobin 94.9 % (95.0-99.0) L 11/07/20 12:55 Carboxyhemoglobin 0.8 (0.5-1.5) 11/13/20 Unknown FiO2 30 % 11/07/20 12:55 FiO2 % 100 11/13/20 Unknown Sodium 152 mmol/L (137-145) H 11/15/20 04:28 Potassium 3.7 mmol/L (3.6-5.0) 11/15/20 04:28 Chloride 118.1 mmol/L (98-107) H 11/15/20 04:28 Carbon Dioxide 25 mmol/L (22-30) 11/15/20 04:28 Anion Gap 13 mmol/L 11/15/20 04:28 BUN 22 mg/dL (9-20) H 11/15/20 04:28 Creatinine 0.3 mg/dL (0.8-1.3) L 11/15/20 04:28 Estimated GFR > 60 ml/min 11/15/20 04:28 BUN/Creatinine Ratio 73 % 11/15/20 04:28 Glucose 190 mg/dL (75-100) H 11/15/20 04:28 POC Glucose 151 mg/dL (70-105) H 11/15/20 05:57 Hemoglobin A1c 5.5 % (4-6) 10/27/20 04:42 Lactic Acid 4.30 mmol/L (0.7-2.0) H* 10/31/20 Unknown Calcium 7.5 mg/dL (8.4-10.2) L 11/15/20 04:28 Phosphorus 4.50 mg/dL (2.5-4.5) D 11/06/20 13:03 Magnesium 1.70 mg/dL (1.7-2.3) 11/13/20 23:15 Total Bilirubin < 0.20 mg/dL (0.1-1.2) 11/06/20 06:45 AST 23 units/L (5-40) 11/06/20 06:45 ALT 20 units/L (7-56) 11/06/20 06:45 Alkaline Phosphatase 117 units/L (35-129) 11/06/20 06:45 Total Creatine Kinase 31 units/L (55-170) L 10/26/20 17:28 Troponin T 0.123 ng/mL (0.00-0.029) H* 11/13/20 23:15 Total Protein 5.0 g/dL (6.3-8.2) L 11/06/20 06:45 Albumin 1.4 g/dL (3.9-5) L 11/06/20 06:45 Albumin/Globulin Ratio 0.4 % 11/06/20 06:45 Triglycerides 190 mg/dL (2-149) H 10/26/20 17:25 Cholesterol 92 mg/dL (50-199) 10/26/20 17:25 LDL Cholesterol Direct 33 mg/dL (50-130) L 10/26/20 17:25 HDL Cholesterol 18 mg/dL (40-59) L 10/26/20 17:25 Cholesterol/HDL Ratio 5.11 % 10/26/20 17:25 Serotonin Release Assay See scanned results 11/03/20 11:01 TSH 1.490 mlU/mL (0.270-4.200) 10/26/20 17:28 Arterial Blood Glucose 187 mg/dL (65-95) H 11/13/20 Unknown Arterial Blood Ionized Calcium 4.7 mg/dL (4.6-5.3) 11/13/20 Unknown Urine Color Yellow (Yellow) 10/27/20 Unknown Urine Turbidity Turbid (Clear) 10/27/20 Unknown Urine pH 8.0 (5.0-7.0) H 10/27/20 Unknown Ur Specific [place] 1.020 (1.003-1.030) 10/27/20 Unknown Urine Protein >500 mg/dL (Negative) 10/27/20 Unknown Urine Glucose (UA) Neg mg/dL (Negative) 10/27/20 Unknown Urine Ketones Neg mg/dL (Negative) 10/27/20 Unknown Urine Blood Sm (Negative) 10/27/20 Unknown Urine Nitrite Neg (Negative) 10/27/20 Unknown Urine Bilirubin Neg (Negative) 10/27/20 Unknown Urine Urobilinogen < 2.0 mg/dL (<2.0) 10/27/20 Unknown Ur Leukocyte Esterase Mod (Negative) 10/27/20 Unknown Urine WBC (Auto) > 182.0 /HPF (0.0-6.0) H 10/27/20 Unknown Urine RBC (Auto) 35.0 /HPF (0.0-6.0) 10/27/20 Unknown Urine WBC Clumps 3+ /HPF 10/27/20 Unknown Urine Mucus 3+ /HPF 10/27/20 Unknown Urine Yeast (Budding) 3+ /HPF 10/27/20 Unknown Vancomycin Trough 22.0 ug/mL (5.0-20.0) H 10/30/20 Unknown Salicylates < 0.3 mg/dL (2.8-20.0) L 10/26/20 17:28 Acetaminophen 5.0 ug/mL (10.0-30.0) L 10/26/20 17:28 Heparin-induced Plt Ab Negative (Negative) 11/03/20 11:01 UF Heparin High Dose 0 % Release 11/03/20 11:01 MOISES UFH Low Dose 0.1 2 % Release 11/03/20 11:01 MOISES UFH Low Dose 0.5 0 % Release 11/03/20 11:01 Coronavirus (PCR) Negative (Negative) 10/27/20 Unknown Blood Type O POSITIVE 10/30/20 09:30 Antibody Screen Negative 10/30/20 09:30 Crossmatch See Detail 10/30/20 09:30 Rivas/IV: Voiding Method Incontinent Active Medications - Current Medications Current Medications: Generic Name Dose Route Start Last Admin Trade Name Freq PRN Reason Stop Dose Admin Acetaminophen 650 mg 10/26/20 22:22 11/13/20 14:36 Acetaminophen 325 Mg Tab PO 650 mg Q4H PRN Administration Pain MILD(1-3)/Fever >100.5/TIERNEY Albuterol 2.5 mg 11/11/20 14:00 11/14/20 20:20 Albuterol 2.5 Mg/3 Ml Nebu IH 2.5 mg TIDRT MARSHALL Administration Lipase/Protease/Amylase 1 each 10/28/20 13:18 Lipase 10,500/Protease 25,000/Amylase 43,750 (Units) Dr Cap FEEDTUBE PRN PRN For Clogged Feeding Tube Enoxaparin Sodium 40 mg 11/07/20 10:00 11/15/20 09:03 Enoxaparin 40 Mg/0.4 Ml Inj SUB-Q 40 mg QDAY@1000 MARSHALL Administration Famotidine 20 mg 11/11/20 10:00 11/15/20 09:03 Famotidine 20 Mg Tab PO 20 mg BID MARSHALL Administration Dextrose 1,000 mls @ 42 mls/hr 11/14/20 08:00 11/15/20 09:06 D5w IV 42 mls/hr DIRECT MARSHALL Administration Dopamine HCl/Dextrose 800 mg in 250 mls @ 12.188 mls/hr 11/14/20 09:00 11/15/20 05:02 Intropin Drip 800 Mg/D5w 250 Ml IV 5 mcg/kg/min TITR MARSHALL 12.188 mls/hr Administration Protocol 5 MCG/KG/MIN Midodrine 10 mg 11/06/20 12:00 11/15/20 08:26 Midodrine 5 Mg Tab PO 10 mg TID@0800,1200,1600 MARSHALL Administration Ondansetron HCl 4 mg 10/26/20 22:22 Ondansetron 4 Mg/2 Ml Inj IV Q8H PRN Nausea And Vomiting Simple Syrup 15 ml 10/28/20 13:18 11/10/20 16:01 Simple Syrup 15 Ml FEEDTUBE 15 ml PRN PRN Administration Hypoglycemia Simple Syrup 30 ml 10/28/20 13:18 Simple Syrup 15 Ml FEEDTUBE PRN PRN Hypoglycemia Sodium Bicarbonate 325 mg 10/28/20 13:18 Sodium Bicarbonate 325 Mg Tab FEEDTUBE PRN PRN For Clogged Feeding Tube Sodium Chloride 10 ml 10/27/20 10:00 11/15/20 09:04 Sodium Chloride 0.9% 10 Ml Flush Syringe IV 10 ml BID MARSHALL Administration Sodium Chloride 10 ml 10/26/20 22:22 Sodium Chloride 0.9% 10 Ml Flush Syringe IV PRN PRN LINE FLUSH Sodium Hypochlorite 1 applic 10/28/20 10:00 11/14/20 22:08 Sodium Hypochlorite, Dakin's 1/2 Strength (0.25%) 473 Ml Topical Soln TP 1 applicatio BID MARSHALL Administration Nutrition/Malnutrition Assess - Dietary Evaluation Nutrition/Malnutrition Findings: Nutrition Notes Start: 10/27/20 09:15 Freq: Status: Active Protocol: Document 11/13/20 12:36 CW (Rec: 11/13/20 13:13 CW [id number]) Nutrition Notes Initial or Follow up Reassessment Current Diagnosis Acute Kidney Injury,Decubitus( Pressure Ulcer),Sepsis, Hypertension,Respiratory Failure,Hyperlipidemia Other Pertinent Diagnosis AMS, MRSA, Encephalopathy, [place] Acidosis, pneu ,FTT Current Diet Vital HP at 80 ml/hr Labs/Tests Na 154 K 2.9 BUN 26 BG 153 Pertinent Medications Flagyl KCl 10 mEq NS 500 ml Height 6 ft 2 in Weight 128.6 kg [place] Body Weight (kg) 86.36 BMI 36.3 Weight Status Obese Subjective/Other Information F/U for TF change and tolerance. TF had not been changed to promote. Informed JENNI Castaneda at 0900. TF to be changed over to Promote. Vital HP was running at goal and well tolerated. Percent of energy/protein needs met: 100%/100% Burn Absent Trauma Absent GI Symptoms Diarrhea Difficulty In Swallowing,Chewing Skin Integrity/Comment Multiple pressure ulcer,1 infected Current % PO Negligible Minimum of two criteria No Fluid Accumulation Moderate to Severe (severe) #2 Nutrition Diagnosis Increased nutrient needs ( specify in comment below) Diagnosis Progress(for reassessment Continues documentation) #1 Nutrition Diagnosis Inadequate oral intake Diagnosis Progress(for reassessment Continues documentation) Is patient on ventilator? Yes Is Patient Ambulatory and/or Out of Bed No REE-([facility]-confined to bed) 2508.648 Kcal/Kg value to use for calculation 14 Approximate Energy Requirements Using 1800 kcal/Kg Calculation Used for Recommendations Kcal/kg Additional Notes protein needs: 133 - 167g(1.2 - 1.5 g/kgAdBW 111) Fluid needs 1 ml/kcal Nutrition Intervention Change Diet Order: Change TF regimen Nutrition Support: Promote at 80 ml/hr with a free water flush of 250 ml q4h for hypernatremia, once resolved resume flush of 50 ml q4h Kcal 1,920 Protein (gm) 120 Fluid (mL) 1,611 Goal #1 TF tolerance Goal #2 Meet at least 75% EER and protein needs via TF Goal #3 wound healing Anticipated Discharge Needs: unable to determine at this time Follow-Up By: 11/17/20 Additional Comments F/U TF change and tolerance
[2020-11-15] MEDS: SODIUM HYPOCHLORITE, DAKIN'S 1/2 STRENGTH (0.25%) 473 ML TOPICAL SOLN TP SCH ×2 (13:06→22:59)
--- NOTE | 2020-11-15 15:11 | XRay Report ---
CHEST 1 VIEW 11/15/2020 1:31 PM INDICATION / CLINICAL INFORMATION: shortness of breath. COMPARISON: 11/14/2020. FINDINGS: SUPPORT DEVICES: Unchanged. HEART / MEDIASTINUM: Stable. LUNGS / PLEURA: There is near complete opacification of the right hemithorax, which has developed sin ce yesterday. Patchy pulmonary opacities throughout the left lung are relatively unchanged. No pneumo thorax. ADDITIONAL FINDINGS: No significant additional findings. IMPRESSION: 1. Near complete opacification of the right thorax is most compatible with an enlarging pleural effus ion. 2. Pulmonary opacities throughout the left lung are unchanged. Signer Name: Dae Chapin MD Signed: 11/15/2020 3:07 PM Workstation Name: [id number]
--- NOTE | 2020-11-15 18:52 | Progress Note ---
Assessment and Plan Imp: 1. UTI/bacteremia 2. Aspiration pneumonia 3. Severe sepsis 4. FAAZL 5. Acute respiratory failure, hypoxia 6. Hypernatremia 7. Poor airway clearance Rec: 1. ABX per ID 2. Cont. Albuterol nebs plus CPT vest; add scheduled Mucinex; CXR shows improvement of mucous plugging on 11/15/2020 3. NPO except TFs 4. Increase D5W rate and f/u sodium 5. Wean Dopamine to keep MAP 60 or greater 6. DVT PPx 7. Prognosis is poor; no family present CCt 31 minutes Subjective Date of service: 11/15/20 Principal diagnosis: Acute Resp Fail, Septic Shock, Sacral Ulcer, AF with RVR Interval history: No events. He is on HFNC at 100% FiO2 and NRB as well. Spent an hour or so on BIPAP earlier. Arousable but cannot give any history. Active Medications Acetaminophen (Acetaminophen 325 Mg Tab) 650 mg PO Q4H PRN PRN Reason: Pain MILD(1-3)/Fever >100.5/TIERNEY Last Admin: 11/13/20 14:36 Dose: 650 mg Documented by: Albuterol (Albuterol 2.5 Mg/3 Ml Nebu) 2.5 mg IH TIDRT [facility] Last Admin: 11/14/20 20:20 Dose: 2.5 mg Documented by: Lipase/Protease/Amylase (Lipase 10,500/Protease 25,000/Amylase 43,750 (Units) Dr Cap) 1 each FEEDTUBE PRN PRN PRN Reason: For Clogged Feeding Tube Enoxaparin Sodium (Enoxaparin 40 Mg/0.4 Ml Inj) 40 mg SUB-Q QDAY@1000 [facility] Last Admin: 11/15/20 09:03 Dose: 40 mg Documented by: Famotidine (Famotidine 20 Mg Tab) 20 mg PO BID [facility] Last Admin: 11/15/20 09:03 Dose: 20 mg Documented by: Dextrose (D5w) 1,000 mls @ 65 mls/hr IV DIRECT [facility] Last Admin: 11/15/20 09:06 Dose: 42 mls/hr Documented by: Dopamine HCl/Dextrose (Intropin Drip 800 Mg/D5w 250 Ml) 800 mg in 250 mls @ 12.188 mls/hr IV TITR MARSHALL; Protocol Last Admin: 11/15/20 05:02 Dose: 5 mcg/kg/min, 12.188 mls/hr Documented by: Midodrine (Midodrine 5 Mg Tab) 10 mg PO TID@0800,1200,1600 [facility] Last Admin: 11/15/20 16:43 Dose: Not Given Documented by: Ondansetron HCl (Ondansetron 4 Mg/2 Ml Inj) 4 mg IV Q8H PRN PRN Reason: Nausea And Vomiting Simple Syrup (Simple Syrup 15 Ml) 15 ml FEEDTUBE PRN PRN PRN Reason: Hypoglycemia Last Admin: 11/10/20 16:01 Dose: 15 ml Documented by: Simple Syrup (Simple Syrup 15 Ml) 30 ml FEEDTUBE PRN PRN PRN Reason: Hypoglycemia Sodium Bicarbonate (Sodium Bicarbonate 325 Mg Tab) 325 mg FEEDTUBE PRN PRN PRN Reason: For Clogged Feeding Tube Sodium Chloride (Sodium Chloride 0.9% 10 Ml Flush Syringe) 10 ml IV BID [facility] Last Admin: 11/15/20 09:04 Dose: 10 ml Documented by: Sodium Chloride (Sodium Chloride 0.9% 10 Ml Flush Syringe) 10 ml IV PRN PRN PRN Reason: LINE FLUSH Sodium Hypochlorite (Sodium Hypochlorite, [place]'s 1/2 Strength (0.25%) 473 Ml Topical Soln) 1 applic TP BID [facility] Last Admin: 11/15/20 13:06 Dose: 1 applicatio Documented by: Objective Vital Signs - 12hr 11/15/20 11/15/20 11/15/20 08:00 12:00 14:40 Temperature 97.4 F L 98.4 F Pulse Rate 89 86 Pulse Rate [ 85 85 Anterior Bilateral Throughout] Respiratory 22 18 Rate [Anterior Bilateral Throughout] O2 Sat by Pulse 92 Oximetry 11/15/20 11/15/20 11/15/20 15:43 15:44 16:00 Temperature 97.7 F Pulse Rate 80 Pulse Rate [ Anterior Bilateral Throughout] Respiratory Rate [Anterior Bilateral Throughout] O2 Sat by Pulse 88 95 Oximetry Constitutional: alert, other (critically ill on HFNC) Eyes: non-icteric ENT: oropharynx moist Neck: supple Effort: normal Ascultation: Bilateral: rhonchi Cardiovascular: regular rate and rhythm (no mrg) Gastrointestinal: normoactive bowel sounds, soft, non-tender Extremities: no cyanosis, cool, anasarca Neurologic: non-focal exam Psychiatric: mood appropriate, affect normal CBC and BMP: 11/14/20 22:26 11/15/20 04:28 ABG, PT/INR, D-dimer: ABG ABG pH 7.295 (7.320-7.450) L 11/13/20 Unknown POC ABG pCO2 56.0 mmHg (32.0-48.0) H 11/13/20 Unknown ABG pCO2 35.4 mm Hg 11/07/20 12:55 POC ABG pO2 49.1 mmHg (83-108) L 11/13/20 Unknown ABG pO2 82.0 mm Hg (80.0-90.0) 11/07/20 12:55 POC ABG HCO3 26.6 11/13/20 Unknown ABG O2 Saturation 78 (0-100) 11/13/20 Unknown PT/INR, D-dimer PT 15.0 Sec. (12.2-14.9) H 11/11/20 14:38 INR 1.18 (0.87-1.13) H 11/11/20 14:38 Abnormal lab findings: Abnormal Labs 10/26/20 10/26/20 10/26/20 17:25 17:25 17:25 WBC 23.3 H RBC 3.10 L Hgb 9.6 L Hct 30.3 L MCV 98 H MCH MCHC RDW 17.4 H Plt Count 521 H Lymph % (Auto) Seg Neutrophils % Seg Neuts % (Manual) 78.0 H Lymphocytes % (Manual) 11.0 L Nucleated RBC % Seg Neutrophils # Seg Neutrophils # Man 18.2 H Lymphocytes # (Manual) Monocytes # (Manual) 1.4 H PT INR ABG pH POC ABG pCO2 POC ABG pO2 ABG pO2 ABG HCO3 ABG O2 Saturation ABG Base Excess ABG Hemoglobin ABG Oxyhemoglobin ABG Sodium ABG Potassium ABG Chloride ABG Glucose Oxyhemoglobin Carboxyhemoglobin Sodium 148 H Potassium Chloride 109.3 H Carbon Dioxide 19 L BUN 57 H Creatinine 1.5 H Glucose 151 H POC Glucose Lactic Acid 9.60 H* Calcium Phosphorus Magnesium Total Creatine Kinase Troponin T 0.062 H Total Protein Albumin 1.7 L Triglycerides 190 H LDL Cholesterol Direct 33 L HDL Cholesterol 18 L Arterial Blood Glucose Arterial Blood Ionized Calcium Urine pH Urine WBC (Auto) Vancomycin Trough Salicylates Acetaminophen Crossmatch 10/26/20 10/26/20 10/26/20 17:28 17:28 17:28 WBC RBC Hgb Hct MCV MCH MCHC RDW Plt Count Lymph % (Auto) Seg Neutrophils % Seg Neuts % (Manual) Lymphocytes % (Manual) Nucleated RBC % Seg Neutrophils # Seg Neutrophils # Man Lymphocytes # (Manual) Monocytes # (Manual) PT INR ABG pH POC ABG pCO2 POC ABG pO2 ABG pO2 ABG HCO3 ABG O2 Saturation ABG Base Excess ABG Hemoglobin ABG Oxyhemoglobin ABG Sodium ABG Potassium ABG Chloride ABG Glucose Oxyhemoglobin Carboxyhemoglobin Sodium Potassium Chloride Carbon Dioxide BUN Creatinine Glucose POC Glucose Lactic Acid Calcium Phosphorus Magnesium Total Creatine Kinase 31 L Troponin T Total Protein Albumin Triglycerides LDL Cholesterol Direct HDL Cholesterol Arterial Blood Glucose Arterial Blood Ionized Calcium Urine pH Urine WBC (Auto) Vancomycin Trough Salicylates < 0.3 L Acetaminophen 5.0 L Crossmatch 10/26/20 10/26/20 10/26/20 17:30 20:11 22:00 WBC RBC Hgb Hct MCV MCH MCHC RDW Plt Count Lymph % (Auto) Seg Neutrophils % Seg Neuts % (Manual) Lymphocytes % (Manual) Nucleated RBC % Seg Neutrophils # Seg Neutrophils # Man Lymphocytes # (Manual) Monocytes # (Manual) PT INR ABG pH 7.235 L POC ABG pCO2 POC ABG pO2 ABG pO2 312.4 H ABG HCO3 16.4 L ABG O2 Saturation 99.5 H ABG Base Excess -10.4 L ABG Hemoglobin 11.0 L ABG Oxyhemoglobin ABG Sodium ABG Potassium ABG Chloride ABG Glucose Oxyhemoglobin Carboxyhemoglobin Sodium Potassium Chloride Carbon Dioxide BUN Creatinine Glucose POC Glucose Lactic Acid 7.70 H* 6.40 H* Calcium Phosphorus Magnesium Total Creatine Kinase Troponin T Total Protein Albumin Triglycerides LDL Cholesterol Direct HDL Cholesterol Arterial Blood Glucose Arterial Blood Ionized Calcium Urine pH Urine WBC (Auto) Vancomycin Trough Salicylates Acetaminophen Crossmatch 10/27/20 10/27/20 10/27/20 03:25 03:30 04:00 WBC 20.3 H RBC 3.10 L Hgb 9.6 L Hct 30.6 L MCV 99 H MCH MCHC 31 L RDW 16.9 H Plt Count Lymph % (Auto) Seg Neutrophils % Seg Neuts % (Manual) Lymphocytes % (Manual) Nucleated RBC % Seg Neutrophils # Seg Neutrophils # Man 11.6 H Lymphocytes # (Manual) Monocytes # (Manual) PT INR ABG pH 7.218 L POC ABG pCO2 POC ABG pO2 62.9 L ABG pO2 ABG HCO3 ABG O2 Saturation ABG Base Excess ABG Hemoglobin 10.6 L ABG Oxyhemoglobin 86.6 L ABG Sodium ABG Potassium 4.8 H ABG Chloride 114.0 H ABG Glucose 116 H Oxyhemoglobin Carboxyhemoglobin 0.4 L Sodium Potassium Chloride 110.2 H Carbon Dioxide 17 L BUN 55 H Creatinine 1.5 H Glucose 109 H POC Glucose Lactic Acid Calcium 7.9 L Phosphorus Magnesium Total Creatine Kinase Troponin T Total Protein Albumin 1.3 L Triglycerides LDL Cholesterol Direct HDL Cholesterol Arterial Blood Glucose 116 H Arterial Blood Ionized Calcium Urine pH Urine WBC (Auto) Vancomycin Trough Salicylates Acetaminophen Crossmatch 10/27/20 10/28/20 10/28/20 Unknown 00:40 00:40 WBC 23.1 H RBC 2.42 L Hgb 7.5 L Hct 23.7 L D MCV 98 H MCH MCHC RDW 16.8 H Plt Count Lymph % (Auto) Seg Neutrophils % Seg Neuts % (Manual) Lymphocytes % (Manual) Nucleated RBC % Seg Neutrophils # Seg Neutrophils # Man Lymphocytes # (Manual) Monocytes # (Manual) PT INR ABG pH POC ABG pCO2 POC ABG pO2 ABG pO2 ABG HCO3 ABG O2 Saturation ABG Base Excess ABG Hemoglobin ABG Oxyhemoglobin ABG Sodium ABG Potassium ABG Chloride ABG Glucose Oxyhemoglobin Carboxyhemoglobin Sodium Potassium Chloride 111.4 H Carbon Dioxide 19 L BUN 49 H Creatinine Glucose POC Glucose Lactic Acid Calcium 7.3 L Phosphorus Magnesium 1.40 L Total Creatine Kinase Troponin T Total Protein 5.8 L Albumin 1.2 L Triglycerides LDL Cholesterol Direct HDL Cholesterol Arterial Blood Glucose Arterial Blood Ionized Calcium Urine pH 8.0 H Urine WBC (Auto) > 182.0 H Vancomycin Trough Salicylates Acetaminophen Crossmatch 10/28/20 10/28/20 10/28/20 03:30 05:36 05:36 WBC RBC Hgb Hct MCV MCH MCHC RDW Plt Count Lymph % (Auto) Seg Neutrophils % Seg Neuts % (Manual) Lymphocytes % (Manual) Nucleated RBC % Seg Neutrophils # Seg Neutrophils # Man Lymphocytes # (Manual) Monocytes # (Manual) PT INR ABG pH 7.175 L POC ABG pCO2 POC ABG pO2 71.5 L ABG pO2 ABG HCO3 ABG O2 Saturation ABG Base Excess ABG Hemoglobin 8.8 L ABG Oxyhemoglobin ABG Sodium ABG Potassium 4.7 H ABG Chloride 114.0 H ABG Glucose 100 H Oxyhemoglobin Carboxyhemoglobin Sodium Potassium Chloride 114.6 H Carbon Dioxide 15 L BUN 48 H Creatinine 1.4 H Glucose POC Glucose Lactic Acid 7.60 H* Calcium 7.7 L Phosphorus Magnesium Total Creatine Kinase Troponin T Total Protein Albumin Triglycerides LDL Cholesterol Direct HDL Cholesterol Arterial Blood Glucose 100 H Arterial Blood Ionized Calcium 4.4 L Urine pH Urine WBC (Auto) Vancomycin Trough Salicylates Acetaminophen Crossmatch 10/28/20 10/28/20 10/29/20 17:18 23:18 03:50 WBC RBC Hgb Hct MCV MCH MCHC RDW Plt Count Lymph % (Auto) Seg Neutrophils % Seg Neuts % (Manual) Lymphocytes % (Manual) Nucleated RBC % Seg Neutrophils # Seg Neutrophils # Man Lymphocytes # (Manual) Monocytes # (Manual) PT INR ABG pH POC ABG pCO2 30.0 L POC ABG pO2 ABG pO2 ABG HCO3 ABG O2 Saturation ABG Base Excess ABG Hemoglobin 8.1 L ABG Oxyhemoglobin ABG Sodium ABG Potassium ABG Chloride 113.0 H ABG Glucose 153 H Oxyhemoglobin Carboxyhemoglobin 0.4 L Sodium Potassium Chloride Carbon Dioxide BUN Creatinine Glucose POC Glucose 134 H 149 H Lactic Acid Calcium Phosphorus Magnesium Total Creatine Kinase Troponin T Total Protein Albumin Triglycerides LDL Cholesterol Direct HDL Cholesterol Arterial Blood Glucose 153 H Arterial Blood Ionized Calcium 4.1 L Urine pH Urine WBC (Auto) Vancomycin Trough Salicylates Acetaminophen Crossmatch 10/29/20 10/29/20 10/29/20 05:09 05:15 05:15 WBC 23.9 H RBC 2.66 L Hgb 8.3 L Hct 26.3 L MCV 99 H MCH MCHC RDW 17.5 H Plt Count Lymph % (Auto) Seg Neutrophils % Seg Neuts % (Manual) Lymphocytes % (Manual) Nucleated RBC % Seg Neutrophils # Seg Neutrophils # Man Lymphocytes # (Manual) Monocytes # (Manual) PT INR ABG pH POC ABG pCO2 POC ABG pO2 ABG pO2 ABG HCO3 ABG O2 Saturation ABG Base Excess ABG Hemoglobin ABG Oxyhemoglobin ABG Sodium ABG Potassium ABG Chloride ABG Glucose Oxyhemoglobin Carboxyhemoglobin Sodium Potassium Chloride 110.4 H Carbon Dioxide 15 L BUN 40 H Creatinine Glucose 140 H POC Glucose 123 H Lactic Acid Calcium 7.0 L Phosphorus Magnesium Total Creatine Kinase Troponin T Total Protein 6.0 L Albumin 1.0 L Triglycerides LDL Cholesterol Direct HDL Cholesterol Arterial Blood Glucose Arterial Blood Ionized Calcium Urine pH Urine WBC (Auto) Vancomycin Trough Salicylates Acetaminophen Crossmatch 10/29/20 10/29/20 10/29/20 05:15 10:37 11:41 WBC RBC Hgb Hct MCV MCH MCHC RDW Plt Count Lymph % (Auto) Seg Neutrophils % Seg Neuts % (Manual) Lymphocytes % (Manual) Nucleated RBC % Seg Neutrophils # Seg Neutrophils # Man Lymphocytes # (Manual) Monocytes # (Manual) PT INR ABG pH POC ABG pCO2 POC ABG pO2 ABG pO2 ABG HCO3 ABG O2 Saturation ABG Base Excess ABG Hemoglobin ABG Oxyhemoglobin ABG Sodium ABG Potassium ABG Chloride ABG Glucose Oxyhemoglobin Carboxyhemoglobin Sodium Potassium Chloride Carbon Dioxide BUN Creatinine Glucose POC Glucose 121 H Lactic Acid 9.90 H* 10.90 H* Calcium Phosphorus Magnesium Total Creatine Kinase Troponin T Total Protein Albumin Triglycerides LDL Cholesterol Direct HDL Cholesterol Arterial Blood Glucose Arterial Blood Ionized Calcium Urine pH Urine WBC (Auto) Vancomycin Trough Salicylates Acetaminophen Crossmatch 10/29/20 10/29/20 10/30/20 15:56 23:24 02:26 WBC RBC Hgb Hct MCV MCH MCHC RDW Plt Count Lymph % (Auto) Seg Neutrophils % Seg Neuts % (Manual) Lymphocytes % (Manual) Nucleated RBC % Seg Neutrophils # Seg Neutrophils # Man Lymphocytes # (Manual) Monocytes # (Manual) PT INR ABG pH POC ABG pCO2 POC ABG pO2 76.6 L ABG pO2 ABG HCO3 ABG O2 Saturation ABG Base Excess ABG Hemoglobin 6.4 L ABG Oxyhemoglobin 93.8 L ABG Sodium ABG Potassium 2.9 L ABG Chloride 110.0 H ABG Glucose 212 H Oxyhemoglobin Carboxyhemoglobin Sodium Potassium Chloride Carbon Dioxide BUN Creatinine Glucose POC Glucose 132 H 175 H Lactic Acid Calcium Phosphorus Magnesium Total Creatine Kinase Troponin T Total Protein Albumin Triglycerides LDL Cholesterol Direct HDL Cholesterol Arterial Blood Glucose 212 H Arterial Blood Ionized Calcium 3.9 L Urine pH Urine WBC (Auto) Vancomycin Trough Salicylates Acetaminophen Crossmatch 10/30/20 10/30/20 10/30/20 04:54 04:54 05:14 WBC 20.7 H RBC 2.28 L Hgb 7.0 L Hct 21.9 L MCV 96 H MCH MCHC RDW 17.0 H Plt Count 90 L Lymph % (Auto) Seg Neutrophils % Seg Neuts % (Manual) Lymphocytes % (Manual) Nucleated RBC % Seg Neutrophils # Seg Neutrophils # Man Lymphocytes # (Manual) Monocytes # (Manual) PT INR ABG pH POC ABG pCO2 POC ABG pO2 ABG pO2 ABG HCO3 ABG O2 Saturation ABG Base Excess ABG Hemoglobin ABG Oxyhemoglobin ABG Sodium ABG Potassium ABG Chloride ABG Glucose Oxyhemoglobin Carboxyhemoglobin Sodium Potassium 3.0 L D Chloride Carbon Dioxide BUN 28 H Creatinine 0.6 L Glucose 214 H POC Glucose 187 H Lactic Acid Calcium 6.2 L Phosphorus Magnesium Total Creatine Kinase Troponin T Total Protein Albumin Triglycerides LDL Cholesterol Direct HDL Cholesterol Arterial Blood Glucose Arterial Blood Ionized Calcium Urine pH Urine WBC (Auto) Vancomycin Trough Salicylates Acetaminophen Crossmatch 10/30/20 10/30/20 10/30/20 09:30 11:40 17:51 WBC RBC Hgb Hct MCV MCH MCHC RDW Plt Count Lymph % (Auto) Seg Neutrophils % Seg Neuts % (Manual) Lymphocytes % (Manual) Nucleated RBC % Seg Neutrophils # Seg Neutrophils # Man Lymphocytes # (Manual) Monocytes # (Manual) PT INR ABG pH POC ABG pCO2 POC ABG pO2 ABG pO2 ABG HCO3 ABG O2 Saturation ABG Base Excess ABG Hemoglobin ABG Oxyhemoglobin ABG Sodium ABG Potassium ABG Chloride ABG Glucose Oxyhemoglobin Carboxyhemoglobin Sodium Potassium Chloride Carbon Dioxide BUN Creatinine Glucose POC Glucose 183 H 136 H Lactic Acid Calcium Phosphorus Magnesium Total Creatine Kinase Troponin T Total Protein Albumin Triglycerides LDL Cholesterol Direct HDL Cholesterol Arterial Blood Glucose Arterial Blood Ionized Calcium Urine pH Urine WBC (Auto) Vancomycin Trough Salicylates Acetaminophen Crossmatch See Detail 10/30/20 10/30/20 10/30/20 18:53 23:25 Unknown WBC RBC Hgb Hct MCV MCH MCHC RDW Plt Count Lymph % (Auto) Seg Neutrophils % Seg Neuts % (Manual) Lymphocytes % (Manual) Nucleated RBC % Seg Neutrophils # Seg Neutrophils # Man Lymphocytes # (Manual) Monocytes # (Manual) PT INR ABG pH POC ABG pCO2 POC ABG pO2 ABG pO2 ABG HCO3 ABG O2 Saturation ABG Base Excess ABG Hemoglobin ABG Oxyhemoglobin ABG Sodium ABG Potassium ABG Chloride ABG Glucose Oxyhemoglobin Carboxyhemoglobin Sodium Potassium Chloride Carbon Dioxide BUN Creatinine Glucose POC Glucose 130 H Lactic Acid Calcium Phosphorus Magnesium Total Creatine Kinase Troponin T Total Protein Albumin Triglycerides LDL Cholesterol Direct HDL Cholesterol Arterial Blood Glucose Arterial Blood Ionized Calcium Urine pH Urine WBC (Auto) Vancomycin Trough 21.4 H 22.0 H Salicylates Acetaminophen Crossmatch 10/30/20 10/31/20 10/31/20 Unknown 02:54 03:42 WBC 21.1 H 23.0 H RBC 2.36 L Hgb 7.3 L 11.4 L D Hct 22.7 L 34.1 L D MCV 96 H MCH MCHC RDW 17.1 H 16.2 H Plt Count 73 L 33 L Lymph % (Auto) Seg Neutrophils % Seg Neuts % (Manual) Lymphocytes % (Manual) Nucleated RBC % Seg Neutrophils # Seg Neutrophils # Man Lymphocytes # (Manual) Monocytes # (Manual) PT INR ABG pH 7.517 H POC ABG pCO2 25.7 L POC ABG pO2 52.3 L ABG pO2 ABG HCO3 ABG O2 Saturation ABG Base Excess ABG Hemoglobin ABG Oxyhemoglobin 90.8 L ABG Sodium ABG Potassium ABG Chloride 109.0 H ABG Glucose 147 H Oxyhemoglobin Carboxyhemoglobin Sodium Potassium Chloride Carbon Dioxide BUN Creatinine Glucose POC Glucose Lactic Acid Calcium Phosphorus Magnesium Total Creatine Kinase Troponin T Total Protein Albumin Triglycerides LDL Cholesterol Direct HDL Cholesterol Arterial Blood Glucose 147 H Arterial Blood Ionized Calcium 4.0 L Urine pH Urine WBC (Auto) Vancomycin Trough Salicylates Acetaminophen Crossmatch 10/31/20 10/31/20 10/31/20 04:37 04:37 05:08 WBC 21.7 H RBC Hgb Hct MCV MCH MCHC RDW 16.1 H Plt Count 39 L Lymph % (Auto) Seg Neutrophils % Seg Neuts % (Manual) Lymphocytes % (Manual) Nucleated RBC % Seg Neutrophils # Seg Neutrophils # Man Lymphocytes # (Manual) Monocytes # (Manual) PT INR ABG pH POC ABG pCO2 POC ABG pO2 ABG pO2 ABG HCO3 ABG O2 Saturation ABG Base Excess ABG Hemoglobin ABG Oxyhemoglobin ABG Sodium ABG Potassium ABG Chloride ABG Glucose Oxyhemoglobin Carboxyhemoglobin Sodium Potassium Chloride 108.4 H Carbon Dioxide BUN 25 H Creatinine 0.5 L Glucose 140 H POC Glucose 140 H Lactic Acid Calcium 6.1 L Phosphorus Magnesium 1.50 L Total Creatine Kinase Troponin T Total Protein Albumin Triglycerides LDL Cholesterol Direct HDL Cholesterol Arterial Blood Glucose Arterial Blood Ionized Calcium Urine pH Urine WBC (Auto) Vancomycin Trough Salicylates Acetaminophen Crossmatch 10/31/20 10/31/20 10/31/20 11:12 18:50 23:21 WBC RBC Hgb Hct MCV MCH MCHC RDW Plt Count Lymph % (Auto) Seg Neutrophils % Seg Neuts % (Manual) Lymphocytes % (Manual) Nucleated RBC % Seg Neutrophils # Seg Neutrophils # Man Lymphocytes # (Manual) Monocytes # (Manual) PT INR ABG pH POC ABG pCO2 POC ABG pO2 ABG pO2 ABG HCO3 ABG O2 Saturation ABG Base Excess ABG Hemoglobin ABG Oxyhemoglobin ABG Sodium ABG Potassium ABG Chloride ABG Glucose Oxyhemoglobin Carboxyhemoglobin Sodium Potassium Chloride Carbon Dioxide BUN Creatinine Glucose POC Glucose 125 H 142 H 127 H Lactic Acid Calcium Phosphorus Magnesium Total Creatine Kinase Troponin T Total Protein Albumin Triglycerides LDL Cholesterol Direct HDL Cholesterol Arterial Blood Glucose Arterial Blood Ionized Calcium Urine pH Urine WBC (Auto) Vancomycin Trough Salicylates Acetaminophen Crossmatch 10/31/20 11/01/20 11/01/20 Unknown 03:40 04:21 WBC RBC Hgb Hct MCV MCH MCHC RDW Plt Count Lymph % (Auto) Seg Neutrophils % Seg Neuts % (Manual) Lymphocytes % (Manual) Nucleated RBC % Seg Neutrophils # Seg Neutrophils # Man Lymphocytes # (Manual) Monocytes # (Manual) PT INR ABG pH 7.489 H POC ABG pCO2 POC ABG pO2 ABG pO2 77.2 L ABG HCO3 ABG O2 Saturation ABG Base Excess ABG Hemoglobin 7.1 L ABG Oxyhemoglobin ABG Sodium ABG Potassium ABG Chloride ABG Glucose Oxyhemoglobin Carboxyhemoglobin Sodium Potassium 3.1 L Chloride 107.1 H Carbon Dioxide BUN 25 H Creatinine 0.5 L Glucose 148 H POC Glucose Lactic Acid 4.30 H* Calcium 6.0 L Phosphorus Magnesium Total Creatine Kinase Troponin T Total Protein Albumin Triglycerides LDL Cholesterol Direct HDL Cholesterol Arterial Blood Glucose Arterial Blood Ionized Calcium Urine pH Urine WBC (Auto) Vancomycin Trough Salicylates Acetaminophen Crossmatch 11/01/20 11/01/20 11/01/20 05:13 11:42 17:38 WBC RBC Hgb Hct MCV MCH MCHC RDW Plt Count Lymph % (Auto) Seg Neutrophils % Seg Neuts % (Manual) Lymphocytes % (Manual) Nucleated RBC % Seg Neutrophils # Seg Neutrophils # Man Lymphocytes # (Manual) Monocytes # (Manual) PT INR ABG pH POC ABG pCO2 POC ABG pO2 ABG pO2 ABG HCO3 ABG O2 Saturation ABG Base Excess ABG Hemoglobin ABG Oxyhemoglobin ABG Sodium ABG Potassium ABG Chloride ABG Glucose Oxyhemoglobin Carboxyhemoglobin Sodium Potassium Chloride Carbon Dioxide BUN Creatinine Glucose POC Glucose 139 H 139 H 161 H Lactic Acid Calcium Phosphorus Magnesium Total Creatine Kinase Troponin T Total Protein Albumin Triglycerides LDL Cholesterol Direct HDL Cholesterol Arterial Blood Glucose Arterial Blood Ionized Calcium Urine pH Urine WBC (Auto) Vancomycin Trough Salicylates Acetaminophen Crossmatch 11/01/20 11/01/20 11/02/20 23:20 Unknown 04:30 WBC 18.2 H RBC 3.27 L Hgb 9.9 L Hct 30.1 L D MCV MCH MCHC RDW 15.7 H Plt Count 34 L Lymph % (Auto) Seg Neutrophils % Seg Neuts % (Manual) Lymphocytes % (Manual) Nucleated RBC % Seg Neutrophils # Seg Neutrophils # Man Lymphocytes # (Manual) Monocytes # (Manual) PT INR ABG pH 7.456 H POC ABG pCO2 POC ABG pO2 ABG pO2 ABG HCO3 ABG O2 Saturation ABG Base Excess ABG Hemoglobin 9.2 L ABG Oxyhemoglobin ABG Sodium ABG Potassium ABG Chloride ABG Glucose Oxyhemoglobin Carboxyhemoglobin Sodium Potassium Chloride Carbon Dioxide BUN Creatinine Glucose POC Glucose 168 H Lactic Acid Calcium Phosphorus Magnesium Total Creatine Kinase Troponin T Total Protein Albumin Triglycerides LDL Cholesterol Direct HDL Cholesterol Arterial Blood Glucose Arterial Blood Ionized Calcium Urine pH Urine WBC (Auto) Vancomycin Trough Salicylates Acetaminophen Crossmatch 11/02/20 11/02/20 11/02/20 06:29 08:40 08:40 WBC 16.6 H RBC 2.87 L Hgb 8.8 L Hct 26.6 L MCV MCH MCHC RDW 15.8 H Plt Count 30 L Lymph % (Auto) Seg Neutrophils % Seg Neuts % (Manual) 97.0 H Lymphocytes % (Manual) 2.0 L Nucleated RBC % 1.0 H Seg Neutrophils # Seg Neutrophils # Man 16.1 H Lymphocytes # (Manual) 0.3 L Monocytes # (Manual) PT INR ABG pH POC ABG pCO2 POC ABG pO2 ABG pO2 ABG HCO3 ABG O2 Saturation ABG Base Excess ABG Hemoglobin ABG Oxyhemoglobin ABG Sodium ABG Potassium ABG Chloride ABG Glucose Oxyhemoglobin Carboxyhemoglobin Sodium Potassium 2.4 L* D Chloride 110.2 H Carbon Dioxide BUN 23 H Creatinine 0.4 L Glucose 154 H POC Glucose 131 H Lactic Acid Calcium 6.1 L Phosphorus Magnesium 1.50 L Total Creatine Kinase Troponin T Total Protein Albumin Triglycerides LDL Cholesterol Direct HDL Cholesterol Arterial Blood Glucose Arterial Blood Ionized Calcium Urine pH Urine WBC (Auto) Vancomycin Trough Salicylates Acetaminophen Crossmatch 11/02/20 11/02/20 11/02/20 13:17 17:25 18:05 WBC RBC Hgb Hct MCV MCH MCHC RDW Plt Count Lymph % (Auto) Seg Neutrophils % Seg Neuts % (Manual) Lymphocytes % (Manual) Nucleated RBC % Seg Neutrophils # Seg Neutrophils # Man Lymphocytes # (Manual) Monocytes # (Manual) PT INR ABG pH POC ABG pCO2 POC ABG pO2 ABG pO2 ABG HCO3 ABG O2 Saturation ABG Base Excess ABG Hemoglobin ABG Oxyhemoglobin ABG Sodium ABG Potassium ABG Chloride ABG Glucose Oxyhemoglobin Carboxyhemoglobin Sodium Potassium 3.1 L D Chloride Carbon Dioxide BUN Creatinine Glucose POC Glucose 134 H 140 H Lactic Acid Calcium Phosphorus Magnesium Total Creatine Kinase Troponin T Total Protein Albumin Triglycerides LDL Cholesterol Direct HDL Cholesterol Arterial Blood Glucose Arterial Blood Ionized Calcium Urine pH Urine WBC (Auto) Vancomycin Trough Salicylates Acetaminophen Crossmatch 11/02/20 11/03/20 11/03/20 23:36 04:15 05:07 WBC RBC Hgb Hct MCV MCH MCHC RDW Plt Count Lymph % (Auto) Seg Neutrophils % Seg Neuts % (Manual) Lymphocytes % (Manual) Nucleated RBC % Seg Neutrophils # Seg Neutrophils # Man Lymphocytes # (Manual) Monocytes # (Manual) PT INR ABG pH POC ABG pCO2 POC ABG pO2 ABG pO2 ABG HCO3 ABG O2 Saturation ABG Base Excess ABG Hemoglobin ABG Oxyhemoglobin ABG Sodium ABG Potassium ABG Chloride ABG Glucose Oxyhemoglobin Carboxyhemoglobin Sodium Potassium 3.0 L Chloride 111.8 H Carbon Dioxide BUN 24 H Creatinine 0.3 L Glucose 141 H POC Glucose 127 H 156 H Lactic Acid Calcium 5.8 L* Phosphorus Magnesium 1.60 L Total Creatine Kinase Troponin T Total Protein Albumin Triglycerides LDL Cholesterol Direct HDL Cholesterol Arterial Blood Glucose Arterial Blood Ionized Calcium Urine pH Urine WBC (Auto) Vancomycin Trough Salicylates Acetaminophen Crossmatch 11/03/20 11/03/20 11/04/20 11:14 17:31 00:17 WBC RBC Hgb Hct MCV MCH MCHC RDW Plt Count Lymph % (Auto) Seg Neutrophils % Seg Neuts % (Manual) Lymphocytes % (Manual) Nucleated RBC % Seg Neutrophils # Seg Neutrophils # Man Lymphocytes # (Manual) Monocytes # (Manual) PT INR ABG pH POC ABG pCO2 POC ABG pO2 ABG pO2 ABG HCO3 ABG O2 Saturation ABG Base Excess ABG Hemoglobin ABG Oxyhemoglobin ABG Sodium ABG Potassium ABG Chloride ABG Glucose Oxyhemoglobin Carboxyhemoglobin Sodium Potassium Chloride Carbon Dioxide BUN Creatinine Glucose POC Glucose 137 H 151 H 156 H Lactic Acid Calcium Phosphorus Magnesium Total Creatine Kinase Troponin T Total Protein Albumin Triglycerides LDL Cholesterol Direct HDL Cholesterol Arterial Blood Glucose Arterial Blood Ionized Calcium Urine pH Urine WBC (Auto) Vancomycin Trough Salicylates Acetaminophen Crossmatch 11/04/20 11/04/20 11/04/20 05:34 05:34 11:16 WBC 21.9 H RBC 2.67 L Hgb 8.2 L Hct 24.8 L MCV MCH MCHC RDW 15.6 H Plt Count 48 L Lymph % (Auto) Seg Neutrophils % Seg Neuts % (Manual) Lymphocytes % (Manual) Nucleated RBC % Seg Neutrophils # Seg Neutrophils # Man Lymphocytes # (Manual) Monocytes # (Manual) PT INR ABG pH POC ABG pCO2 POC ABG pO2 ABG pO2 ABG HCO3 ABG O2 Saturation ABG Base Excess ABG Hemoglobin ABG Oxyhemoglobin ABG Sodium ABG Potassium ABG Chloride ABG Glucose Oxyhemoglobin Carboxyhemoglobin Sodium 146 H Potassium Chloride 114.6 H Carbon Dioxide BUN 29 H Creatinine 0.3 L Glucose 173 H POC Glucose 156 H Lactic Acid Calcium 5.7 L* Phosphorus Magnesium Total Creatine Kinase Troponin T Total Protein Albumin Triglycerides LDL Cholesterol Direct HDL Cholesterol Arterial Blood Glucose Arterial Blood Ionized Calcium Urine pH Urine WBC (Auto) Vancomycin Trough Salicylates Acetaminophen Crossmatch 11/04/20 11/04/20 11/04/20 11:42 17:18 23:12 WBC RBC Hgb Hct MCV MCH MCHC RDW Plt Count Lymph % (Auto) Seg Neutrophils % Seg Neuts % (Manual) Lymphocytes % (Manual) Nucleated RBC % Seg Neutrophils # Seg Neutrophils # Man Lymphocytes # (Manual) Monocytes # (Manual) PT INR ABG pH 7.525 H POC ABG pCO2 28.9 L POC ABG pO2 64.3 L ABG pO2 ABG HCO3 ABG O2 Saturation ABG Base Excess ABG Hemoglobin 8.2 L ABG Oxyhemoglobin ABG Sodium ABG Potassium 3.3 L ABG Chloride 115.0 H ABG Glucose 165 H Oxyhemoglobin Carboxyhemoglobin Sodium Potassium Chloride Carbon Dioxide BUN Creatinine Glucose POC Glucose 144 H 155 H Lactic Acid Calcium Phosphorus Magnesium Total Creatine Kinase Troponin T Total Protein Albumin Triglycerides LDL Cholesterol Direct HDL Cholesterol Arterial Blood Glucose 165 H Arterial Blood Ionized Calcium 4.0 L Urine pH Urine WBC (Auto) Vancomycin Trough Salicylates Acetaminophen Crossmatch 11/05/20 11/05/20 11/05/20 04:48 04:48 05:57 WBC 17.4 H RBC 2.49 L Hgb 7.8 L Hct 23.5 L MCV MCH MCHC RDW 16.0 H Plt Count 69 L Lymph % (Auto) Seg Neutrophils % Seg Neuts % (Manual) Lymphocytes % (Manual) Nucleated RBC % Seg Neutrophils # Seg Neutrophils # Man Lymphocytes # (Manual) Monocytes # (Manual) PT INR ABG pH POC ABG pCO2 POC ABG pO2 ABG pO2 ABG HCO3 ABG O2 Saturation ABG Base Excess ABG Hemoglobin ABG Oxyhemoglobin ABG Sodium ABG Potassium ABG Chloride ABG Glucose Oxyhemoglobin Carboxyhemoglobin Sodium 147 H Potassium 3.5 L Chloride 115.4 H Carbon Dioxide BUN 34 H Creatinine 0.3 L Glucose 154 H POC Glucose 146 H Lactic Acid Calcium 6.1 L Phosphorus 2.00 L Magnesium Total Creatine Kinase Troponin T Total Protein Albumin Triglycerides LDL Cholesterol Direct HDL Cholesterol Arterial Blood Glucose Arterial Blood Ionized Calcium Urine pH Urine WBC (Auto) Vancomycin Trough Salicylates Acetaminophen Crossmatch 11/05/20 11/05/20 11/05/20 11:33 17:52 23:37 WBC RBC Hgb Hct MCV MCH MCHC RDW Plt Count Lymph % (Auto) Seg Neutrophils % Seg Neuts % (Manual) Lymphocytes % (Manual) Nucleated RBC % Seg Neutrophils # Seg Neutrophils # Man Lymphocytes # (Manual) Monocytes # (Manual) PT INR ABG pH POC ABG pCO2 POC ABG pO2 ABG pO2 ABG HCO3 ABG O2 Saturation ABG Base Excess ABG Hemoglobin ABG Oxyhemoglobin ABG Sodium ABG Potassium ABG Chloride ABG Glucose Oxyhemoglobin Carboxyhemoglobin Sodium Potassium Chloride Carbon Dioxide BUN Creatinine Glucose POC Glucose 144 H 136 H 151 H Lactic Acid Calcium Phosphorus Magnesium Total Creatine Kinase Troponin T Total Protein Albumin Triglycerides LDL Cholesterol Direct HDL Cholesterol Arterial Blood Glucose Arterial Blood Ionized Calcium Urine pH Urine WBC (Auto) Vancomycin Trough Salicylates Acetaminophen Crossmatch 11/06/20 11/06/20 11/06/20 05:36 06:45 06:45 WBC 15.0 H RBC 2.33 L Hgb 7.2 L Hct 22.1 L MCV 95 H MCH MCHC RDW 16.2 H Plt Count 103 L Lymph % (Auto) Seg Neutrophils % Seg Neuts % (Manual) Lymphocytes % (Manual) Nucleated RBC % Seg Neutrophils # Seg Neutrophils # Man Lymphocytes # (Manual) Monocytes # (Manual) PT INR ABG pH POC ABG pCO2 POC ABG pO2 ABG pO2 ABG HCO3 ABG O2 Saturation ABG Base Excess ABG Hemoglobin ABG Oxyhemoglobin ABG Sodium ABG Potassium ABG Chloride ABG Glucose Oxyhemoglobin Carboxyhemoglobin Sodium 148 H Potassium Chloride 118.2 H Carbon Dioxide BUN 32 H Creatinine 0.4 L Glucose 153 H POC Glucose 140 H Lactic Acid Calcium 6.4 L Phosphorus 0.90 L* D Magnesium Total Creatine Kinase Troponin T Total Protein 5.0 L Albumin 1.4 L Triglycerides LDL Cholesterol Direct HDL Cholesterol Arterial Blood Glucose Arterial Blood Ionized Calcium Urine pH Urine WBC (Auto) Vancomycin Trough Salicylates Acetaminophen Crossmatch 11/06/20 11/06/20 11/06/20 11:32 17:37 23:19 WBC RBC Hgb Hct MCV MCH MCHC RDW Plt Count Lymph % (Auto) Seg Neutrophils % Seg Neuts % (Manual) Lymphocytes % (Manual) Nucleated RBC % Seg Neutrophils # Seg Neutrophils # Man Lymphocytes # (Manual) Monocytes # (Manual) PT INR ABG pH POC ABG pCO2 POC ABG pO2 ABG pO2 ABG HCO3 ABG O2 Saturation ABG Base Excess ABG Hemoglobin ABG Oxyhemoglobin ABG Sodium ABG Potassium ABG Chloride ABG Glucose Oxyhemoglobin Carboxyhemoglobin Sodium Potassium Chloride Carbon Dioxide BUN Creatinine Glucose POC Glucose 132 H 133 H 145 H Lactic Acid Calcium Phosphorus Magnesium Total Creatine Kinase Troponin T Total Protein Albumin Triglycerides LDL Cholesterol Direct HDL Cholesterol Arterial Blood Glucose Arterial Blood Ionized Calcium Urine pH Urine WBC (Auto) Vancomycin Trough Salicylates Acetaminophen Crossmatch 11/07/20 11/07/20 11/07/20 12:55 16:45 16:45 WBC 12.0 H RBC 3.63 L Hgb 11.4 L D Hct MCV 104 H MCH MCHC 30 L RDW 18.0 H Plt Count 133 L Lymph % (Auto) Seg Neutrophils % Seg Neuts % (Manual) Lymphocytes % (Manual) Nucleated RBC % Seg Neutrophils # Seg Neutrophils # Man Lymphocytes # (Manual) Monocytes # (Manual) PT INR ABG pH POC ABG pCO2 POC ABG pO2 ABG pO2 ABG HCO3 ABG O2 Saturation ABG Base Excess ABG Hemoglobin 7.7 L ABG Oxyhemoglobin ABG Sodium ABG Potassium ABG Chloride ABG Glucose Oxyhemoglobin 94.9 L Carboxyhemoglobin Sodium 149 H Potassium Chloride 119.8 H Carbon Dioxide BUN 31 H Creatinine 0.4 L Glucose 130 H POC Glucose Lactic Acid Calcium 6.5 L Phosphorus Magnesium Total Creatine Kinase Troponin T Total Protein Albumin Triglycerides LDL Cholesterol Direct HDL Cholesterol Arterial Blood Glucose Arterial Blood Ionized Calcium Urine pH Urine WBC (Auto) Vancomycin Trough Salicylates Acetaminophen Crossmatch 11/07/20 11/08/20 11/08/20 17:23 00:12 06:11 WBC RBC Hgb Hct MCV MCH MCHC RDW Plt Count Lymph % (Auto) Seg Neutrophils % Seg Neuts % (Manual) Lymphocytes % (Manual) Nucleated RBC % Seg Neutrophils # Seg Neutrophils # Man Lymphocytes # (Manual) Monocytes # (Manual) PT INR ABG pH POC ABG pCO2 POC ABG pO2 ABG pO2 ABG HCO3 ABG O2 Saturation ABG Base Excess ABG Hemoglobin ABG Oxyhemoglobin ABG Sodium ABG Potassium ABG Chloride ABG Glucose Oxyhemoglobin Carboxyhemoglobin Sodium Potassium Chloride Carbon Dioxide BUN Creatinine Glucose POC Glucose 115 H 129 H 109 H Lactic Acid Calcium Phosphorus Magnesium Total Creatine Kinase Troponin T Total Protein Albumin Triglycerides LDL Cholesterol Direct HDL Cholesterol Arterial Blood Glucose Arterial Blood Ionized Calcium Urine pH Urine WBC (Auto) Vancomycin Trough Salicylates Acetaminophen Crossmatch 11/08/20 11/08/20 11/08/20 17:36 23:49 23:58 WBC RBC Hgb Hct MCV MCH MCHC RDW Plt Count Lymph % (Auto) Seg Neutrophils % Seg Neuts % (Manual) Lymphocytes % (Manual) Nucleated RBC % Seg Neutrophils # Seg Neutrophils # Man Lymphocytes # (Manual) Monocytes # (Manual) PT INR ABG pH POC ABG pCO2 POC ABG pO2 ABG pO2 ABG HCO3 ABG O2 Saturation ABG Base Excess ABG Hemoglobin ABG Oxyhemoglobin ABG Sodium ABG Potassium ABG Chloride ABG Glucose Oxyhemoglobin Carboxyhemoglobin Sodium Potassium Chloride Carbon Dioxide BUN Creatinine Glucose 138 H POC Glucose 38 L 36 L Lactic Acid Calcium Phosphorus Magnesium Total Creatine Kinase Troponin T Total Protein Albumin Triglycerides LDL Cholesterol Direct HDL Cholesterol Arterial Blood Glucose Arterial Blood Ionized Calcium Urine pH Urine WBC (Auto) Vancomycin Trough Salicylates Acetaminophen Crossmatch 11/09/20 11/09/20 11/09/20 05:33 06:00 06:00 WBC 13.1 H RBC 2.35 L Hgb 7.6 L D Hct 22.9 L D MCV 97 H MCH MCHC RDW 16.8 H Plt Count Lymph % (Auto) 9.1 L Seg Neutrophils % 84.8 H Seg Neuts % (Manual) Lymphocytes % (Manual) Nucleated RBC % Seg Neutrophils # 11.1 H Seg Neutrophils # Man Lymphocytes # (Manual) Monocytes # (Manual) PT INR ABG pH POC ABG pCO2 POC ABG pO2 ABG pO2 ABG HCO3 ABG O2 Saturation ABG Base Excess ABG Hemoglobin ABG Oxyhemoglobin ABG Sodium ABG Potassium ABG Chloride ABG Glucose Oxyhemoglobin Carboxyhemoglobin Sodium 150 H Potassium 3.4 L D Chloride 119.2 H Carbon Dioxide BUN 30 H Creatinine 0.4 L Glucose 137 H POC Glucose 58 L Lactic Acid Calcium 7.2 L Phosphorus Magnesium Total Creatine Kinase Troponin T Total Protein Albumin Triglycerides LDL Cholesterol Direct HDL Cholesterol Arterial Blood Glucose Arterial Blood Ionized Calcium Urine pH Urine WBC (Auto) Vancomycin Trough Salicylates Acetaminophen Crossmatch 11/09/20 11/09/20 11/10/20 06:08 22:16 13:46 WBC 16.1 H RBC 2.52 L Hgb 8.1 L Hct 25.2 L MCV 100 H MCH MCHC RDW 18.2 H Plt Count Lymph % (Auto) Seg Neutrophils % Seg Neuts % (Manual) 90.0 H Lymphocytes % (Manual) 3.0 L Nucleated RBC % Seg Neutrophils # Seg Neutrophils # Man 14.5 H Lymphocytes # (Manual) 0.5 L Monocytes # (Manual) 1.1 H PT INR ABG pH POC ABG pCO2 POC ABG pO2 ABG pO2 ABG HCO3 ABG O2 Saturation ABG Base Excess ABG Hemoglobin ABG Oxyhemoglobin ABG Sodium ABG Potassium ABG Chloride ABG Glucose Oxyhemoglobin Carboxyhemoglobin Sodium Potassium Chloride Carbon Dioxide BUN Creatinine Glucose POC Glucose 122 H 120 H Lactic Acid Calcium Phosphorus Magnesium Total Creatine Kinase Troponin T Total Protein Albumin Triglycerides LDL Cholesterol Direct HDL Cholesterol Arterial Blood Glucose Arterial Blood Ionized Calcium Urine pH Urine WBC (Auto) Vancomycin Trough Salicylates Acetaminophen Crossmatch 11/10/20 11/10/20 11/11/20 13:46 15:59 11:43 WBC RBC Hgb Hct MCV MCH MCHC RDW Plt Count Lymph % (Auto) Seg Neutrophils % Seg Neuts % (Manual) Lymphocytes % (Manual) Nucleated RBC % Seg Neutrophils # Seg Neutrophils # Man Lymphocytes # (Manual) Monocytes # (Manual) PT INR ABG pH POC ABG pCO2 POC ABG pO2 ABG pO2 ABG HCO3 ABG O2 Saturation ABG Base Excess ABG Hemoglobin ABG Oxyhemoglobin ABG Sodium ABG Potassium ABG Chloride ABG Glucose Oxyhemoglobin Carboxyhemoglobin Sodium 153 H Potassium Chloride 120.6 H Carbon Dioxide BUN 27 H Creatinine 0.3 L Glucose 112 H POC Glucose 40 L 124 H Lactic Acid Calcium 6.8 L Phosphorus Magnesium Total Creatine Kinase Troponin T Total Protein Albumin Triglycerides LDL Cholesterol Direct HDL Cholesterol Arterial Blood Glucose Arterial Blood Ionized Calcium Urine pH Urine WBC (Auto) Vancomycin Trough Salicylates Acetaminophen Crossmatch 11/11/20 11/11/20 11/11/20 14:38 14:38 14:38 WBC 13.8 H RBC 2.43 L Hgb 7.6 L Hct 24.0 L MCV 99 H MCH MCHC RDW 18.0 H Plt Count Lymph % (Auto) Seg Neutrophils % Seg Neuts % (Manual) Lymphocytes % (Manual) Nucleated RBC % Seg Neutrophils # Seg Neutrophils # Man Lymphocytes # (Manual) Monocytes # (Manual) PT 15.0 H INR 1.18 H ABG pH POC ABG pCO2 POC ABG pO2 ABG pO2 ABG HCO3 ABG O2 Saturation ABG Base Excess ABG Hemoglobin ABG Oxyhemoglobin ABG Sodium ABG Potassium ABG Chloride ABG Glucose Oxyhemoglobin Carboxyhemoglobin Sodium 154 H Potassium 3.1 L D Chloride 122.1 H Carbon Dioxide BUN 26 H Creatinine 0.4 L Glucose 140 H POC Glucose Lactic Acid Calcium 7.3 L Phosphorus Magnesium Total Creatine Kinase Troponin T Total Protein Albumin Triglycerides LDL Cholesterol Direct HDL Cholesterol Arterial Blood Glucose Arterial Blood Ionized Calcium Urine pH Urine WBC (Auto) Vancomycin Trough Salicylates Acetaminophen Crossmatch 11/11/20 11/11/20 11/12/20 18:39 18:42 00:03 WBC RBC Hgb Hct MCV MCH MCHC RDW Plt Count Lymph % (Auto) Seg Neutrophils % Seg Neuts % (Manual) Lymphocytes % (Manual) Nucleated RBC % Seg Neutrophils # Seg Neutrophils # Man Lymphocytes # (Manual) Monocytes # (Manual) PT INR ABG pH POC ABG pCO2 POC ABG pO2 ABG pO2 ABG HCO3 ABG O2 Saturation ABG Base Excess ABG Hemoglobin ABG Oxyhemoglobin ABG Sodium ABG Potassium ABG Chloride ABG Glucose Oxyhemoglobin Carboxyhemoglobin Sodium Potassium Chloride Carbon Dioxide BUN Creatinine Glucose POC Glucose 45 L 66 L 108 H Lactic Acid Calcium Phosphorus Magnesium Total Creatine Kinase Troponin T Total Protein Albumin Triglycerides LDL Cholesterol Direct HDL Cholesterol Arterial Blood Glucose Arterial Blood Ionized Calcium Urine pH Urine WBC (Auto) Vancomycin Trough Salicylates Acetaminophen Crossmatch 11/12/20 11/12/20 11/12/20 05:44 08:33 08:33 WBC 13.4 H RBC 2.35 L Hgb 7.5 L Hct 23.7 L MCV 101 H MCH MCHC RDW 19.7 H Plt Count Lymph % (Auto) Seg Neutrophils % Seg Neuts % (Manual) Lymphocytes % (Manual) Nucleated RBC % Seg Neutrophils # Seg Neutrophils # Man Lymphocytes # (Manual) Monocytes # (Manual) PT INR ABG pH POC ABG pCO2 POC ABG pO2 ABG pO2 ABG HCO3 ABG O2 Saturation ABG Base Excess ABG Hemoglobin ABG Oxyhemoglobin ABG Sodium ABG Potassium ABG Chloride ABG Glucose Oxyhemoglobin Carboxyhemoglobin Sodium 154 H Potassium 2.9 L* Chloride 121.4 H Carbon Dioxide BUN 26 H Creatinine 0.4 L Glucose 153 H POC Glucose 114 H Lactic Acid Calcium 7.3 L Phosphorus Magnesium Total Creatine Kinase Troponin T Total Protein Albumin Triglycerides LDL Cholesterol Direct HDL Cholesterol Arterial Blood Glucose Arterial Blood Ionized Calcium Urine pH Urine WBC (Auto) Vancomycin Trough Salicylates Acetaminophen Crossmatch 11/12/20 11/12/20 11/13/20 11:38 17:17 05:28 WBC RBC Hgb Hct MCV MCH MCHC RDW Plt Count Lymph % (Auto) Seg Neutrophils % Seg Neuts % (Manual) Lymphocytes % (Manual) Nucleated RBC % Seg Neutrophils # Seg Neutrophils # Man Lymphocytes # (Manual) Monocytes # (Manual) PT INR ABG pH POC ABG pCO2 51.4 H POC ABG pO2 41.7 L ABG pO2 ABG HCO3 ABG O2 Saturation ABG Base Excess ABG Hemoglobin 9.1 L ABG Oxyhemoglobin 72.2 L ABG Sodium 151.1 H ABG Potassium 3.2 L ABG Chloride 122.0 H ABG Glucose 191 H Oxyhemoglobin Carboxyhemoglobin Sodium Potassium Chloride Carbon Dioxide BUN Creatinine Glucose POC Glucose 125 H 127 H Lactic Acid Calcium Phosphorus Magnesium Total Creatine Kinase Troponin T Total Protein Albumin Triglycerides LDL Cholesterol Direct HDL Cholesterol Arterial Blood Glucose 191 H Arterial Blood Ionized Calcium Urine pH Urine WBC (Auto) Vancomycin Trough Salicylates Acetaminophen Crossmatch 11/13/20 11/13/20 11/13/20 10:46 23:15 23:15 WBC 12.2 H RBC 2.41 L Hgb 7.7 L Hct 24.5 L MCV 102 H MCH MCHC RDW 23.0 H Plt Count Lymph % (Auto) Seg Neutrophils % Seg Neuts % (Manual) Lymphocytes % (Manual) Nucleated RBC % Seg Neutrophils # Seg Neutrophils # Man Lymphocytes # (Manual) Monocytes # (Manual) PT INR ABG pH POC ABG pCO2 POC ABG pO2 ABG pO2 ABG HCO3 ABG O2 Saturation ABG Base Excess ABG Hemoglobin ABG Oxyhemoglobin ABG Sodium ABG Potassium ABG Chloride ABG Glucose Oxyhemoglobin Carboxyhemoglobin Sodium Potassium Chloride Carbon Dioxide BUN Creatinine Glucose POC Glucose 153 H Lactic Acid Calcium Phosphorus Magnesium Total Creatine Kinase Troponin T 0.123 H* Total Protein Albumin Triglycerides LDL Cholesterol Direct HDL Cholesterol Arterial Blood Glucose Arterial Blood Ionized Calcium Urine pH Urine WBC (Auto) Vancomycin Trough Salicylates Acetaminophen Crossmatch 11/13/20 11/13/20 11/14/20 23:15 Unknown 05:26 WBC RBC Hgb Hct MCV MCH MCHC RDW Plt Count Lymph % (Auto) Seg Neutrophils % Seg Neuts % (Manual) Lymphocytes % (Manual) Nucleated RBC % Seg Neutrophils # Seg Neutrophils # Man Lymphocytes # (Manual) Monocytes # (Manual) PT INR ABG pH 7.295 L POC ABG pCO2 56.0 H POC ABG pO2 49.1 L ABG pO2 ABG HCO3 ABG O2 Saturation ABG Base Excess ABG Hemoglobin 8.3 L ABG Oxyhemoglobin 77.1 L ABG Sodium 150.5 H ABG Potassium 3.3 L ABG Chloride 121.0 H ABG Glucose 187 H Oxyhemoglobin Carboxyhemoglobin Sodium 152 H Potassium 3.3 L Chloride 117.8 H Carbon Dioxide BUN 25 H Creatinine 0.4 L Glucose 123 H POC Glucose 46 L Lactic Acid Calcium 7.5 L Phosphorus Magnesium Total Creatine Kinase Troponin T Total Protein Albumin Triglycerides LDL Cholesterol Direct HDL Cholesterol Arterial Blood Glucose 187 H Arterial Blood Ionized Calcium Urine pH Urine WBC (Auto) Vancomycin Trough Salicylates Acetaminophen Crossmatch 11/14/20 11/14/20 11/14/20 06:26 22:26 22:26 WBC RBC 2.75 L Hgb 9.0 L Hct 27.8 L MCV 101 H MCH 33 H MCHC RDW 22.8 H Plt Count Lymph % (Auto) Seg Neutrophils % Seg Neuts % (Manual) Lymphocytes % (Manual) Nucleated RBC % Seg Neutrophils # Seg Neutrophils # Man Lymphocytes # (Manual) Monocytes # (Manual) PT INR ABG pH POC ABG pCO2 POC ABG pO2 ABG pO2 ABG HCO3 ABG O2 Saturation ABG Base Excess ABG Hemoglobin ABG Oxyhemoglobin ABG Sodium ABG Potassium ABG Chloride ABG Glucose Oxyhemoglobin Carboxyhemoglobin Sodium 147 H Potassium 3.3 L Chloride 114.3 H Carbon Dioxide BUN 23 H Creatinine 0.3 L Glucose 209 H POC Glucose 135 H Lactic Acid Calcium 7.4 L Phosphorus Magnesium Total Creatine Kinase Troponin T Total Protein Albumin Triglycerides LDL Cholesterol Direct HDL Cholesterol Arterial Blood Glucose Arterial Blood Ionized Calcium Urine pH Urine WBC (Auto) Vancomycin Trough Salicylates Acetaminophen Crossmatch 11/14/20 11/15/20 11/15/20 23:22 04:28 05:57 WBC RBC Hgb Hct MCV MCH MCHC RDW Plt Count Lymph % (Auto) Seg Neutrophils % Seg Neuts % (Manual) Lymphocytes % (Manual) Nucleated RBC % Seg Neutrophils # Seg Neutrophils # Man Lymphocytes # (Manual) Monocytes # (Manual) PT INR ABG pH POC ABG pCO2 POC ABG pO2 ABG pO2 ABG HCO3 ABG O2 Saturation ABG Base Excess ABG Hemoglobin ABG Oxyhemoglobin ABG Sodium ABG Potassium ABG Chloride ABG Glucose Oxyhemoglobin Carboxyhemoglobin Sodium 152 H Potassium Chloride 118.1 H Carbon Dioxide BUN 22 H Creatinine 0.3 L Glucose 190 H POC Glucose 136 H 151 H Lactic Acid Calcium 7.5 L Phosphorus Magnesium Total Creatine Kinase Troponin T Total Protein Albumin Triglycerides LDL Cholesterol Direct HDL Cholesterol Arterial Blood Glucose Arterial Blood Ionized Calcium Urine pH Urine WBC (Auto) Vancomycin Trough Salicylates Acetaminophen Crossmatch 11/15/20 11/15/20 11:40 16:56 WBC RBC Hgb Hct MCV MCH MCHC RDW Plt Count Lymph % (Auto) Seg Neutrophils % Seg Neuts % (Manual) Lymphocytes % (Manual) Nucleated RBC % Seg Neutrophils # Seg Neutrophils # Man Lymphocytes # (Manual) Monocytes # (Manual) PT INR ABG pH POC ABG pCO2 POC ABG pO2 ABG pO2 ABG HCO3 ABG O2 Saturation ABG Base Excess ABG Hemoglobin ABG Oxyhemoglobin ABG Sodium ABG Potassium ABG Chloride ABG Glucose Oxyhemoglobin Carboxyhemoglobin Sodium Potassium Chloride Carbon Dioxide BUN Creatinine Glucose POC Glucose 129 H 115 H Lactic Acid Calcium Phosphorus Magnesium Total Creatine Kinase Troponin T Total Protein Albumin Triglycerides LDL Cholesterol Direct HDL Cholesterol Arterial Blood Glucose Arterial Blood Ionized Calcium Urine pH Urine WBC (Auto) Vancomycin Trough Salicylates Acetaminophen Crossmatch Chest x-ray: report reviewed, image reviewed (improved aeration on the R) Allied health notes reviewed: nursing
[2020-11-15] MEDS: guaiFENesin 100 MG/5 ML ORAL LIQD PO SCH ×2 (19:30→22:57)
[2020-11-15] MEDS: ALBUTEROL 2.5 MG/3 ML NEBU IH SCH (19:56)
[2020-11-15 22:01] LABS: ABG Base Excess 2.2 mmol/L (-2.0-3.0); ABG HCO3 26.1 mmol/L (20.0-26.0); ABG Methemoglobin 0.7 % (0.0-1.5); ABG Oxygen Saturation 82.9 % (95.0-99.0); ABG PCO2 37.7 mm Hg; ABG PH 7.457 pH Units (7.350-7.450); ABG PO2 48.3 mm Hg (80.0-90.0)
--- NOTE | 2020-11-15 22:14 | Event Note ---
Procedure: Rapid sequence intubation Indication: I was called to the bedside by hospitalist physician who discussed case with lan engineer. Patient has required noninvasive positive pressure ventilation for the past 3 hours. He has been difficult to oxygenate. I spoke with respiratory therapist who informed me that oxygen saturation was approximately 70% on high flow prior to BiPAP placement. Patient has required intubation during this hospitalization. On my exam hiatus oxygen saturation achieved 93%. Patient is lethargic. During induction and paralysis, BiPAP kept in place. Patient was induced with 20 mg of etomidate. 200 mg of succinylcholine used for paralysis. I used video laryngoscope Charlee 4 blade to visualize vocal cords, ETT was inserted. Confirmation with direct indirect visualization, positive color change, condensation, adequate oxygenation chest rise. Equal breath sounds auscultated. Total time of patient care 15 minutes
[2020-11-15] MEDS ORDERED: MINERAL OIL/PETROLATUM, WHITE OPHTH OINT 3.5 GM OU PRN (22:30)
[2020-11-15] MEDS ORDERED: LIP THERAPY VASELINE TP PRN (22:30)
--- NOTE | 2020-11-15 23:02 | XRay Report ---
CHEST - 1 VIEW INDICATION: ETT placement COMPARISON: Earlier today FINDINGS: SUPPORT DEVICES: Endotracheal tube has been placed with tip just above the level of the lina. Nithin mmend retracting 2-3 cm. Otherwise stable support device positioning. HEART: Stable cardiomediastinal silhouette. LUNGS/PLEURA: Significantly improved aeration in the right lung with mild to moderate patchy multifo tristan airspace disease and small layering effusion on the right. ADDITIONAL FINDINGS: None. IMPRESSION: 1. Endotracheal tube should be retracted 2-3 cm. 2. Significantly improved pulmonary findings as above. Signer Name: Prashanth Colindres MD Signed: 11/15/2020 10:57 PM Workstation Name: [id number]
[2020-11-15] MEDS: NORepinephrine/NS 4 MG-250 ML 4 MG/250 ML BAG IV SCH (23:18)
[2020-11-15] MEDS: fentaNYL DRIP Premix 2,000 MCG/100 ML BAG IV SCH (23:19)
[2020-11-15] MEDS ORDERED: ETOMIDATE 20 MG/10 ML INJ IV ONE (23:39)
[2020-11-15] MEDS ORDERED: SUCCINYLCHOLINE CHLORIDE 200 MG/10 ML INJ MDV IV ONE (23:42)
[2020-11-15 23:45] LABS: ABG HCO3 26.6 mmol/L (20.0-26.0); ABG Methemoglobin 0.4 % (0.0-1.5); ABG Oxygen Saturation 97.2 % (95.0-99.0); ABG PH 7.362 pH Units (7.350-7.450); ABG PO2 95.1 mm Hg (80.0-90.0)
--- NOTE | 2020-11-16 00:23 | Event Note ---
Procedure note: Central venous catheter placement, right internal jugular vein Consent unobtainable due to patient's status on mechanical ventilator. I requested for hospitalist to obtain consent from family member. Indication: Hypotension, vasopressor therapy Under sterile conditions, using 5 barrier precautions Including Drape, gown, mask, shield, gloves. Using Seldinger technique, I inserted central venous catheter into the right internal jugular vein under ultrasound guidance. Venous return from all 3 ports. Biopatch used Tegaderm covering. no complication. My personal interpretation of post insertion chest radiograph At the bedside. Central venous catheter in appropriate position at the SVC just above the right atrium, no pneumothorax visualized
--- NOTE | 2020-11-16 00:41 | XRay Report ---
CHEST - 1 VIEW INDICATION: central line placement COMPARISON: Earlier today FINDINGS: SUPPORT DEVICES: New right IJ CVL with tip in the SVC. Otherwise stable support device positioning. HEART: Stable cardiomediastinal silhouette. LUNGS/PLEURA: Persistent patchy multifocal airspace disease greatest throughout the left lung. No pn eumothorax. ADDITIONAL FINDINGS: None. IMPRESSION: New right IJ CVL in satisfactory position without complication. Signer Name: Prashanth Colindres MD Signed: 11/16/2020 12:37 AM Workstation Name: [id number]
--- NOTE | 2020-11-16 01:19 | Event Note ---
Date: 11/15/20 Attention called to patient who has been on admission for acute respiratory failure, hypoxia, severe sepsis and aspiration pneumonia who has not been in respiratory distress and has been persistently hypoxic on BiPAP. Office Helper -Dr. Jennings requested that patient be intubated. ER physician notified of patient successfully intubated. We will continue on current management and follow-up on chest x-ray and ABG.
[2020-11-16] MEDS ORDERED: METOPROLOL TARTRATE 5 MG/5 ML INJ IV ONE (01:46)
[2020-11-16] MEDS: ALBUTEROL 2.5 MG/3 ML NEBU IH SCH ×5 (03:24→20:21)
[2020-11-16] MEDS: guaiFENesin 100 MG/5 ML ORAL LIQD PO SCH ×6 (03:44→21:49)
[2020-11-16 04:40] LABS: ABG Base Excess 0.5 mmol/L (-2.0-3.0); ABG HCO3 26.3 mmol/L (20.0-26.0); ABG Methemoglobin 0.5 % (0.0-1.5); ABG PCO2 49.1 mm Hg; ABG PH 7.348 pH Units (7.350-7.450); ABG PO2 91.6 mm Hg (80.0-90.0)
[2020-11-16 05:09] LABS: Hematocrit 24.5 % (35.5-45.6); Hemoglobin 7.7 gm/dl (11.8-15.2); Mean Corpuscular HGB Conc 31 % (32-34); Mean Corpuscular Volume 105 fl (84-94); Platelet Count 255 K/mm3 (140-440); Red Blood Count 2.33 M/mm3 (3.65-5.03)
[2020-11-16 05:18] LABS: Red Cell Distribution Width 22.9 % (13.2-15.2)
[2020-11-16 05:30] LABS: Blood Urea Nitrogen 20 mg/dL (9-20); Calcium 7.6 mg/dL (8.4-10.2); Hemolysis Index 4
[2020-11-16 05:36] LABS: BUN/Creatinine Ratio 50
[2020-11-16] MEDS: MIDODRINE 5 MG TAB PO SCH ×3 (07:52→15:07)
[2020-11-16] MEDS: fentaNYL DRIP Premix 2,000 MCG/100 ML BAG IV SCH ×2 (07:53→23:38)
[2020-11-16] MEDS: ENOXAPARIN 40 MG/0.4 ML INJ SUB-Q SCH (09:01)
[2020-11-16] MEDS: FAMOTIDINE 20 MG TAB PO SCH ×2 (09:02→21:47)
[2020-11-16] MEDS: SODIUM HYPOCHLORITE, DAKIN'S 1/2 STRENGTH (0.25%) 473 ML TOPICAL SOLN TP SCH (09:03)
--- NOTE | 2020-11-16 10:35 | Progress Note ---
Assessment and Plan Cultures: 10/26/2020 tracheal aspirate culture: MRSA 10/26/2020 blood culture: Proteus 10/27/2020 urine culture: Mixed hien A/P: 75-year-old male, care home resident with seizure disorder, hypertension, depression, hyperlipidemia, chronic encephalopathy was sent to the hospital with worsening mental status: #Septic shock: probably from pneumonia. #Acute hypoxic respiratory failure: back on the vent. #Proteus bacteremia: multifactorial from infected sacral decubitus ulcer, bilateral pneumonia, UTI. S/P abx. #Acute diarrhea: ? C. difficile, improved on vancomycin p.o. Diarrhea improved, Cdiff test was not able to be done. #Necrotic, infected sacral decubitus ulcer: underwent debridement 10/29/2020, also noted to have brittle coccyx consistent with osteomyelitis. #UTI: UA with significant pyuria. #FAZAL: resolved #PVD: SFA occlusion. Not a candidate for revascularization per vascular Recs: ET aspirate culture ordered IV cefepime, vancomycin as empiric therapy for bilateral pneumonia Extend course of p.o. vancomycin due to initiation of systemic antibiotics Overall, guarded prognosis Stephania Starr MD, FACP [facility] ([facility] O: [phone] F: [phone] Subjective Date of service: 11/16/20 Principal diagnosis: Acute Resp Fail, Septic Shock, Sacral Ulcer, AF with RVR Interval history: Patient with worsening hypoxia, failed BiPAP required intubation last night. He also developed hypotension requiring central line placement and has been initiated on pressors. Remains afebrile. Objective - Exam Narrative Exam: Physical Exam: Constitutional: sedated, intubated, on the vent Head, Ears, Nose: Normocephalic, atraumatic. External ears, nose normal Eyes: Conjunctivae/corneas clear. No icterus. No ptosis. Neck: intubated Oral: intubated Cardiovascular: S1, S2 + Respiratory: AE fair bilaterally and equal GI: Soft, bowel sounds + Musculoskeletal: Anasarca. Bilateral lower extremities with wounds, ischemic digits Skin: No rash or abscess Hem/Lymphatic: No palpable cervical or supraclavicular nodes. No lymphangitis Psych: no agitation Neurological: sedated, intubated, on the vent, exam limited - Constitutional Vitals: Vital Signs Temp Pulse Resp BP Pulse Ox 98.0 F 118 H 17 124/78 99 11/16/20 07:50 11/16/20 09:00 11/16/20 09:00 11/16/20 09:00 11/16/20 09:00 Temperature -Last 24 Hours Temperature 98.0 F Temperature 98.2 F Temperature 98.8 F Temperature 97.7 F Temperature 98.4 F - Labs CBC & Chem 7: 11/16/20 04:00 11/16/20 04:00 Labs: Abnormal lab results 11/15/20 11/15/20 11/15/20 Range/Units 11:40 16:56 21:53 RBC (3.65-5.03) M/mm3 Hgb (11.8-15.2) gm/dl Hct (35.5-45.6) % MCV (84-94) fl MCH (28-32) pg MCHC (32-34) % RDW (13.2-15.2) % ABG pH 7.457 H (7.350-7.450) pH Units ABG pO2 48.3 L (80.0-90.0) mm Hg ABG HCO3 26.1 H (20.0-26.0) mmol/L ABG O2 Saturation 82.9 L (95.0-99.0) % ABG Hemoglobin 9.7 L (14.0-18.0) gm/dl Oxyhemoglobin 81.0 L (95.0-99.0) % Sodium (137-145) mmol/L Potassium (3.6-5.0) mmol/L Chloride (98-107) mmol/L Creatinine (0.8-1.3) mg/dL Glucose (75-100) mg/dL POC Glucose 129 H 115 H (70-105) mg/dL Calcium (8.4-10.2) mg/dL 11/15/20 11/16/20 11/16/20 Range/Units 23:12 00:07 00:09 RBC (3.65-5.03) M/mm3 Hgb (11.8-15.2) gm/dl Hct (35.5-45.6) % MCV (84-94) fl MCH (28-32) pg MCHC (32-34) % RDW (13.2-15.2) % ABG pH (7.350-7.450) pH Units ABG pO2 95.1 H (80.0-90.0) mm Hg ABG HCO3 26.6 H (20.0-26.0) mmol/L ABG O2 Saturation (95.0-99.0) % ABG Hemoglobin 7.5 L (14.0-18.0) gm/dl Oxyhemoglobin (95.0-99.0) % Sodium (137-145) mmol/L Potassium (3.6-5.0) mmol/L Chloride (98-107) mmol/L Creatinine (0.8-1.3) mg/dL Glucose (75-100) mg/dL POC Glucose 13 L 153 H (70-105) mg/dL Calcium (8.4-10.2) mg/dL 11/16/20 11/16/20 11/16/20 Range/Units 03:43 04:00 04:00 RBC 2.33 L (3.65-5.03) M/mm3 Hgb 7.7 L (11.8-15.2) gm/dl Hct 24.5 L (35.5-45.6) % MCV 105 H (84-94) fl MCH 33 H (28-32) pg MCHC 31 L (32-34) % RDW 22.9 H (13.2-15.2) % ABG pH 7.348 L (7.350-7.450) pH Units ABG pO2 91.6 H (80.0-90.0) mm Hg ABG HCO3 26.3 H (20.0-26.0) mmol/L ABG O2 Saturation (95.0-99.0) % ABG Hemoglobin 7.3 L (14.0-18.0) gm/dl Oxyhemoglobin (95.0-99.0) % Sodium 148 H (137-145) mmol/L Potassium 3.5 L (3.6-5.0) mmol/L Chloride 115.9 H (98-107) mmol/L Creatinine 0.4 L (0.8-1.3) mg/dL Glucose 195 H (75-100) mg/dL POC Glucose (70-105) mg/dL Calcium 7.6 L (8.4-10.2) mg/dL 11/16/20 11/16/20 Range/Units 05:16 07:40 RBC (3.65-5.03) M/mm3 Hgb (11.8-15.2) gm/dl Hct (35.5-45.6) % MCV (84-94) fl MCH (28-32) pg MCHC (32-34) % RDW (13.2-15.2) % ABG pH (7.350-7.450) pH Units ABG pO2 (80.0-90.0) mm Hg ABG HCO3 (20.0-26.0) mmol/L ABG O2 Saturation (95.0-99.0) % ABG Hemoglobin (14.0-18.0) gm/dl Oxyhemoglobin (95.0-99.0) % Sodium (137-145) mmol/L Potassium (3.6-5.0) mmol/L Chloride (98-107) mmol/L Creatinine (0.8-1.3) mg/dL Glucose (75-100) mg/dL POC Glucose 61 L 122 H (70-105) mg/dL Calcium (8.4-10.2) mg/dL - Imaging and cardiology Chest x-ray: report reviewed, image reviewed (Chest x-ray with worsening bilateral infiltrates)
[2020-11-16] MEDS ORDERED: VANCOMYCIN PHARMACY TO DOSE IV SCH (11:00)
[2020-11-16] MEDS: CEFEPIME/NS 2 GM/100 ML 2 GM/100 ML BAG IV SCH ×2 (11:17→21:48)
[2020-11-16] MEDS: VANCOMYCIN 2,000 MG in SODIUM CHLORIDE 0.9% 500 ML 500 ML IV SCH (11:17)
--- NOTE | 2020-11-16 11:26 | Progress Note ---
Assessment and Plan overnights reviewed no further andres wean dopamine gtt poor prognosis - Patient Problems (1) FAZAL (acute kidney injury) Current Visit: Yes Status: Acute (2) Acute encephalopathy Current Visit: Yes Status: Acute (3) Acute metabolic encephalopathy Current Visit: Yes Status: Acute (4) Anemia Current Visit: Yes Status: Acute (5) Atrial fibrillation with RVR Current Visit: Yes Status: Acute (6) Elevated lactic acid level Current Visit: Yes Status: Acute (7) Hypomagnesemia Current Visit: Yes Status: Acute Subjective Principal diagnosis: Acute Resp Fail, Septic Shock, Sacral Ulcer, AF with RVR Interval history: events of overnight noted Objective Vital Signs Temp Pulse Pulse Pulse Resp Resp BP 11/16/20 09:00 118 H 17 124/78 11/16/20 08:30 123 H 18 114/69 11/16/20 08:00 119 H 113 H 20 85/67 11/16/20 07:50 98.0 F 11/16/20 07:30 116 H 21 89/52 11/16/20 07:28 114 H 120 H 20 89/52 11/16/20 07:00 115 H 15 119/62 11/16/20 06:30 120 H 17 119/57 11/16/20 06:00 118 H 21 116/65 11/16/20 05:30 120 H 17 121/67 11/16/20 05:00 77 17 126/61 11/16/20 04:30 118 H 19 118/65 11/16/20 04:00 98.2 F 111 H 20 125/72 11/16/20 03:37 123 H 20 11/16/20 03:32 119 H 154/92 11/16/20 03:30 118 H 14 154/92 11/16/20 03:00 118 H 23 115/68 11/16/20 02:30 117 H 19 117/67 11/16/20 02:06 119 H 21 11/16/20 01:22 145 H 132/69 11/16/20 00:00 143 H 11/15/20 22:15 126 H 61/40 11/15/20 22:00 118 H 13 99/46 11/15/20 21:30 138 H 34 H 124/82 11/15/20 21:00 123 H 28 H 120/72 11/15/20 20:30 93 H 31 H 142/73 11/15/20 20:00 98.8 F 102 H 28 H 135/77 11/15/20 19:56 105 H 28 H 11/15/20 19:30 77 25 H 139/70 11/15/20 19:15 102 H 32 H 139/70 11/15/20 19:00 90 30 H 143/78 11/15/20 18:30 87 23 142/83 11/15/20 18:00 80 25 H 147/82 11/15/20 17:30 79 22 144/74 11/15/20 17:00 108 H 26 H 157/95 11/15/20 16:30 83 29 H 146/82 11/15/20 16:00 97.7 F 86 28 H 148/73 11/15/20 15:44 11/15/20 15:43 11/15/20 15:30 83 24 145/62 11/15/20 15:00 67 22 136/64 11/15/20 14:40 85 18 11/15/20 14:30 101 H 25 H 168/91 11/15/20 14:00 101 H 26 H 159/83 11/15/20 13:30 98 H 28 H 150/90 11/15/20 13:00 85 21 161/84 11/15/20 12:30 85 14 163/83 11/15/20 12:00 98.4 F 84 18 168/80 11/15/20 11:30 93 H 16 159/83 Pulse Ox 11/16/20 09:00 99 11/16/20 08:30 100 11/16/20 08:00 97 11/16/20 07:50 11/16/20 07:30 100 11/16/20 07:28 100 11/16/20 07:00 100 11/16/20 06:30 100 11/16/20 06:00 100 11/16/20 05:30 100 11/16/20 05:00 100 11/16/20 04:30 100 11/16/20 04:00 100 11/16/20 03:37 11/16/20 03:32 100 11/16/20 03:30 100 11/16/20 03:00 100 11/16/20 02:30 100 11/16/20 02:06 100 11/16/20 01:22 11/16/20 00:00 04/17/21 22:15 90 11/15/20 22:00 82 L 11/15/20 21:30 90 11/15/20 21:00 84 11/15/20 20:30 93 11/15/20 20:00 87 11/15/20 19:56 11/15/20 19:30 87 11/15/20 19:15 90 11/15/20 19:00 81 L 11/15/20 18:30 93 11/15/20 18:00 93 11/15/20 17:30 94 11/15/20 17:00 92 11/15/20 16:30 92 11/15/20 16:00 90 11/15/20 15:44 95 11/15/20 15:43 88 11/15/20 15:30 95 11/15/20 15:00 97 11/15/20 14:40 11/15/20 14:30 94 11/15/20 14:00 95 11/15/20 13:30 90 11/15/20 13:00 90 11/15/20 12:30 89 11/15/20 12:00 87 11/15/20 11:30 87 - Physical Examination General: Other (lethargic ) HEENT: Positive: Normocephaly Neck: Positive: neck supple, trachea midline Neuro: Positive: Grossly Intact, Other (lethargic) Abdomen: Positive: Soft Skin: Positive: Wound. Negative: Rash Musculoskeletal: No Pain Extremities: Present: upper extr. pulses, lower extr. pulses, edema, Other (chronic skin changes noted) - Labs and Meds CBC 11/16/20 Range/Units 04:00 WBC 10.3 (4.5-11.0) K/mm3 RBC 2.33 L (3.65-5.03) M/mm3 Hgb 7.7 L (11.8-15.2) gm/dl Hct 24.5 L (35.5-45.6) % Plt Count 255 (140-440) K/mm3 Comprehensive Metabolic Panel 11/16/20 Range/Units 04:00 Sodium 148 H (137-145) mmol/L Potassium 3.5 L (3.6-5.0) mmol/L Chloride 115.9 H (98-107) mmol/L Carbon Dioxide 26 (22-30) mmol/L BUN 20 (9-20) mg/dL Creatinine 0.4 L (0.8-1.3) mg/dL Glucose 195 H (75-100) mg/dL Calcium 7.6 L (8.4-10.2) mg/dL - Imaging and Cardiology EKG: report reviewed, image reviewed Echo: report reviewed (10/28/2020- EF 55-60%, no significant valvular abnormalities) - Allied health notes Allied health notes reviewed: nursing
[2020-11-16] MEDS: NORepinephrine/NS 4 MG-250 ML 4 MG/250 ML BAG IV SCH (11:55)
[2020-11-16] MEDS ORDERED: ETOMIDATE 20 MG/10 ML INJ IV ONE (11:56)
[2020-11-16] MEDS ORDERED: SUCCINYLCHOLINE CHLORIDE 200 MG/10 ML INJ MDV ONE (11:56)
--- NOTE | 2020-11-16 12:03 | Progress Note ---
Assessment and Plan Assessment and plan: This is a 75-year-old male who is a alf resident with seizure disorder, hypertension, depression, hyperlipidemia, hypoglycemia, dysphagia, and encephalopathy who presents to the emergency department on 10/26 via EMS for tachypnea, dry mucous membranes and hypoxia. Patient was hypotensive, febrile to 103 degrees and hypoxic in the emergency department therefore he was intubated and central IV access was obtained. Patient received 3.5 L of IV fluid in the emergency department. Patient was admitted to the hospital service with consults to CCM, surgery, WOCN and ID for Sepsis, acute kidney injury, urinary tract infection, acute respiratory failure, electrolyte imbalances, infected sacral wound and bilateral pneumonia. Sepsis Acute respiratory failure with Hypoxia Cardiovascular shock Infected sacral wound s/p debridement with surgery Generalized anasarca possible acute diastolic congestive heart failure Anemia s/p 2 units prbc Bilateral pleural effusion Right and left lung atelectasis secondary to mucous plug Proteus bacteremia MRSA pneumonia Urine tract infection Acute kidney injury with vasomotor Nephropathy Acute Diarrhea ?C.diff- Test was not peformed Leukocytosis SFA occlusion - Not a candidate for surgery per Vascular SVT- Resolved Hyponatremia- now Hypernatremia Hypoglycemia Hyperchloremia Hypocalcemia Hypomagnesemia Hypophosphatemia Lactic acidosis 10/27: Patient received additional 4 L LR for fluid resuscitation and CV monitoring was initiated. Patient is on Levophed. ID added Flagyl to vancomycin and cefepime. His trach aspirate grew staph coccus aureus. At the time my examination patient the fentanyl drip was held by RN and he was on 14 MCG of Levophed. This morning he was on assist control 450/20/6/.100. We will give additional bolus of fluids with goal CVP 10-12 and repeat labs in AM. Surgery was consulted to possible debridement. 10/28: Overnight it was noted that patient went into SVT and he was given adenosine 6 mg/12 mg / 12 mg once and was started on a Cardizem drip after no response to amnio bolus and cardiology was consulted. Currently patient remains on Levophed drip and is hypotensive and received additional 2 L of bolus for goal CVP of 10-12. Infectious disease changed cefepime/Flagyl to meropenem for GNR in his blood cultures 09/04 and will continue vancomycin. Patient currently was not well controlled on max Cardizem and cardiology initiated amiodarone. Patient still is very tachycardic. Patient is hypomagnesemic and we will replete his Mg and recheck level. We will give the patient additional to complete resolve LR this afternoon. Patient has a standing order per [facility] to bolus the patient with LR for CVP goal of 10-12. This morning he is hyperchlormeic, metabolic acidotic (bicarb drip initiated) and his BUN/creati nine slightly elevated. Patient still remains lactic acidotic. 10/29: Patient's blood culture speciated to Proteus and his tracheal aspirate is MRSA. He is currently on ceftriaxone, Flagyl and vancomycin. Patient heart rate consistently is 110-150s and cardiology has given him an amiodarone bolus today and he remains on amiodarone drip. He looks much started on IV digoxin. This morning 4 L LR bolus was ordered and we will bolus an additional 4 L of LR this afternoon. Patient still has lactic acidosis, metabolic acidosis, leukocytosis and hyperchloremia. On examination this morning patient is more edematous and he remains on Levophed and amnio drip. 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 Remains on amio, levo and sedated with fentanyl. He is hypokalemic today which was repleted, h/h 02/18 and he is being type and crossed today with 2 units PRBC ordered to be transfused. Plt drop noted, heparin discontinued and HIT ordered. Bicarb gtt discontinued. No acute events overnight. 10/31: Patient hypomagnesemia today which was repleted and cardiology has changed his IV amiodarone to p.o. Patient will get albumin per [facility]. At the time my examination patient is on assist control 450/20/6/0.40. 11/03: At the time my examination patient is on assist control 450/20/6/0.25 and sedated with fentanyl and on Levophed at 4.Patient's leukocytosis is improving he received Albumin this weekend. Patient is hypokalemic, hypomagnesemic, hypocalcemic today. We will repeat his electrolytes and recheck a BMP in the a.m. Patient received 2 units PRBC on 10/30 and his hemoglobin has been trending down. We will recheck in the a.m. 11/04: At the time of my examination patient was on Levophed 3 mcg and on VZV/CPAP 450/20/6/0.35. Patient still has leukocytosis, respiratory alkalosis, hyponatremia, hypochloremia, hypocalcemia. Today his magnesium and potassium repleted with bolus of potassium 4/magnesium 2. He received 60 mcg KCl p.o., 40 mEq of KCl IV and 2 g of magnesium sulfate. We will recheck BMP and mag and a.m. Surgery has deemed the patient to unstable for further debulking. We also consulted vascular surgery for PVD as patient has discoloration to BLE /feet. 11/05: Vascular surgery will obtain bilateral lower extremity arterial duplex to evaluate arterial flow and recommends adding as FWF to tube feedings in assisting to wean off of vasopressors. Patient has hypokalemia, hypophosphatemia and normal to low magnesium. Magnesium, potassium and phosphate have been repleted. Patient still remains on ventilator support but on CPAP trial this morning. Patient HIT is still pending. This morning at the time of my examination patient was on assist-control 450/20/6/0.35 and he tolerated CPAP trial for 4 hours yesterday. He was on Levophed 0.5 and his rectal tube output was noted at 1000 mL. 11/06: This morning patient was on a CPAP trial and became hypoxic with SPO2 into the 80s and was switched back to assist control. Patient's vent settings are assist control tidal and 450, rate 20, PEEP 6, FiO2 0.25. Today patient has leukocytosis, hypernatremia, hyperchloremia, hypocalcemia and hypophosphatemia. We will repeat a phosphate. His free water flushes have been increased and his magnesium has been repleted again. Patient has been started on Lovenox given improvement in his platelet count and on midodrine to help keep Levophed off. Infectious disease will continue p.o. vancomycin for total of 10 days. 11/07: Patient failed his CPAP trial yesterday and has been placed on CPAP 05/06 again this morning by RT. Overnight patient was rested on assist control tolerance by 50, rate of 20, pressure support 6 and FiO2 30%. His lab work is still pending for this morning. On repeat his phosphorus was 4.50 yesterday and repletion was discontinued. 11/08/2020; patient is off pressors currently on midodrine. Patient is on cef triaxone and vancomycin. Patient is on assist control. Patient was evaluated by vascular surgery for peripheral vascular disease with SFA occlusion and recommend no intervention at this time. Prognosis is guarded. Patient is on 2 L of intranasal oxygen. We will put speech therapy evaluation. 11/09/2020; patient is currently off pressors and on midodrine. Continue with ceftriaxone, Flagyl and vancomycin per ID recommendation. Patient's blood culture grew Proteus mirabilis and tracheal aspirate grew MRSA. Patient was evaluated by vascular surgery for PVD with SFA occlusion and recommend no intervention at this time. Patient is on 2 L of intranasal oxygen. Currently patient is on tube feeding and follow speech therapy evaluation. 11/10: Overnight noted to have increased RR, ? Awaiting speech eval considering patient still on Tube feeds. Continue to monitor Hypernatremia. Antibiotics today will be D109/14. Will continue discharge planning on discussion with CM. Patient nonrebreather. Possibly back on congestive heart failure will need appropriate diuresis. Transferred back to [facility]. Discussed with battery loader and also with cardiology. 11/11: Remains lethargic remains in respiratory distress chest x-ray shows right lung collapse likely secondary to mucous plug. Discussed with battery loader will likely undergo a bronchoscopy today. We will also continue to monitor as we did suggest possible pleural effusion which we think may be less likely but if that seems to be the case we will send patient for thoracentesis following the bronchoscopy. Continue to monitor hemoglobin continue to monitor diarrhea antibiotics management per infectious disease. I did speak and update patient's cousin yesterday. Patient still with edema will await cardiology reevaluation for possible further diuresis. 11/12: Patient for Bronchoscopy today. Continue supportive care 11/13: Patient Clinically improving, tolerated Bronchoscopy yesterday. Awaiting am labs today. Overnight had bradycardia. Continue weaning oxygen. Discussed with quarry equipment operator patient did have bronchial plug plus pleural effusion but will address. Will monitor serial x-rays. Discussed with nursing staff about my discussion with the brother. Continue supportive care PER Brother,([phone] patient has had recurrent knee aspiration Cardiology to re-evaluate today for Bradycardia noted overnight 11/14: Patient had a repeat bronchoscopy yesterday of the right lung due to mucous plug. Remote Inpatient Coder did have a conversation with the cousin as one of the considerations may be a trach due to recurrent pulmonary mucous plug and also significant debility for patient's overall medical condition. And his inability to maintain his airway. We will start him on a low round of D5 until diet is established. We will continue to monitor clinical status this morning. Plan discussed with nursing staff patient and also with variety performer 11/15: Continues to show some improvement, will check CXR today. Wean oxygen as tolerated, will likely need Trach per pulmonary. WBC improving, will monitor S odium level. Patient on dopamin. 11/16: Patient overnight required intubation due to worsening respiratory failure secondary to complete opacification of the right lung again. This has appeared to cleared up this morning following the intuabation. Cousin advised of the finding, he will try to get us all his records because he believes that the patient has had a trach done before but is not sure. Started on Pressors due to hypotension The high probability of a clinically significant, sudden or life threatening deterioration of the [pulmonary, cardiac] system(s) required my full and direct attention, intervention and personal management. The aggregate critical care time was [35] minutes. This time is in addition to time spent performing reported procedures but includes the following: [X] Data Review and interpretation [X] Patient assessment and monitoring of vital signs [X] Documentation [X] Medication orders and management History Interval history: Patient seen and examined, INTUBATED lAST NIGHT DUE TO INCREASED WORK OF BREATHING Hospitalist Physical - Physical exam Narrative exam: VITAL SIGNS: Reviewed. GENERAL: The patient appears normally developed, Now on ventilator. vital signs as documented. HEAD: No signs of head trauma. EYES: Pupils are equal. Extraocular motions intact. EARS: Hearing grossly intact. MOUTH: Oropharynx is normal. NECK: No adenopathy, no JVD. CHEST: Chest with crackles breath sounds bilaterally. No wheezes CARDIAC: Regular rate and rhythm. S1 and S2, without murmurs, gallops, or rubs. VASCULAR: +2 bilateral pitting edema. Peripheral pulses normal and equal in all extremities. ABDOMEN: Soft, non tender and non distended. No rebound or guarding, and no masses palpated. Bowel Sounds normal. MUSCULOSKELETAL: Good range of motion of all major joints. Extremities without clubbing, cyanosis. +2 bilateral pitting edema. NEUROLOGIC EXAM: sedated. Speech garbled speech but improved compared to yesterday. PSYCHIATRIC: unable . SKIN: Detail exam as documented in skin assessment - Constitutional Vitals: Temp Pulse Resp BP Pulse Ox 98.0 F 107 H 17 97/47 100 11/16/20 07:50 11/16/20 11:26 11/16/20 09:00 11/16/20 11:26 11/16/20 11:26 General appearance: Present: no acute distress, other (Intubated, resting comfortably) HEART Score - HEART Score EKG: Non-specific Age: > 65 Risk factors: > 3 risk factors or hx of atherosclerotic disease Troponin: Troponin T 0.123 ng/mL (0.00-0.029) H* 11/13/20 23:15 Troponin: < normal limit - Critical Actions Critical Actions: 4-6 pts:12-16.6% risk of adverse cardiac event. Should be admitted Results - Labs CBC & Chem 7: 11/16/20 04:00 11/16/20 04:00 Labs: Laboratory Last Values WBC 10.3 K/mm3 (4.5-11.0) 11/16/20 04:00 RBC 2.33 M/mm3 (3.65-5.03) L 11/16/20 04:00 Hgb 7.7 gm/dl (11.8-15.2) L 11/16/20 04:00 Hct 24.5 % (35.5-45.6) L 11/16/20 04:00 MCV 105 fl (84-94) H 11/16/20 04:00 MCH 33 pg (28-32) H 11/16/20 04:00 MCHC 31 % (32-34) L 11/16/20 04:00 RDW 22.9 % (13.2-15.2) H 11/16/20 04:00 Plt Count 255 K/mm3 (140-440) 11/16/20 04:00 Lymph % (Auto) 9.1 % (13.4-35.0) L 11/09/20 06:00 [place] % (Auto) 5.4 % (0.0-7.3) 11/09/20 06:00 Eos % (Auto) 0.3 % (0.0-4.3) 11/09/20 06:00 Baso % (Auto) 0.4 % (0.0-1.8) 11/09/20 06:00 Lymph # (Auto) 1.2 K/mm3 (1.2-5.4) 11/09/20 06:00 [place] # (Auto) 0.7 K/mm3 (0.0-0.8) 11/09/20 06:00 Eos # (Auto) 0.0 K/mm3 (0.0-0.4) 11/09/20 06:00 Baso # (Auto) 0.0 K/mm3 (0.0-0.1) 11/09/20 06:00 Add Manual Diff Complete 11/10/20 13:46 Total Counted 100 11/10/20 13:46 Seg Neutrophils % 84.8 % (40.0-70.0) H 11/09/20 06:00 Seg Neuts % (Manual) 90.0 % (40.0-70.0) H 11/10/20 13:46 Band Neutrophils % 17.0 % 10/27/20 03:30 Lymphocytes % (Manual) 3.0 % (13.4-35.0) L 11/10/20 13:46 Monocytes % (Manual) 7.0 % (0.0-7.3) 11/10/20 13:46 Eosinophils % (Manual) 2.0 % (0.0-4.3) 10/27/20 03:30 Metamyelocytes % 4.0 % 10/27/20 03:30 Nucleated RBC % Not Reportable 11/10/20 13:46 Seg Neutrophils # 11.1 K/mm3 (1.8-7.7) H 11/09/20 06:00 Seg Neutrophils # Man 14.5 K/mm3 (1.8-7.7) H 11/10/20 13:46 Band Neutrophils # 0.0 K/mm3 11/10/20 13:46 Lymphocytes # (Manual) 0.5 K/mm3 (1.2-5.4) L 11/10/20 13:46 Abs React Lymphs (Man) 0.0 K/mm3 11/10/20 13:46 Monocytes # (Manual) 1.1 K/mm3 (0.0-0.8) H 11/10/20 13:46 Eosinophils # (Manual) 0.0 K/mm3 (0.0-0.4) 11/10/20 13:46 Basophils # (Manual) 0.0 K/mm3 (0.0-0.1) 11/10/20 13:46 Metamyelocytes # 0.0 K/mm3 11/10/20 13:46 Myelocytes # 0.0 K/mm3 11/10/20 13:46 Promyelocytes # 0.0 K/mm3 11/10/20 13:46 Blast Cells # 0.0 K/mm3 11/10/20 13:46 WBC Morphology Not Reportable 11/10/20 13:46 Hypersegmented Neuts Not Reportable 11/10/20 13:46 Hyposegmented Neuts Not Reportable 11/10/20 13:46 Hypogranular Neuts Not Reportable 11/10/20 13:46 Smudge Cells Not Reportable 11/10/20 13:46 Toxic Granulation Not Reportable 11/10/20 13:46 Toxic Vacuolation Not Reportable 11/10/20 13:46 Dohle Bodies Not Reportable 11/10/20 13:46 Pelger-Huet Anomaly Not Reportable 11/10/20 13:46 Kassi Rods Not Reportable 11/10/20 13:46 Platelet Estimate Not Reportable 11/10/20 13:46 Clumped Platelets Not Reportable 11/10/20 13:46 Plt Clumps, EDTA Not Reportable 11/10/20 13:46 Large Platelets Not Reportable 11/10/20 13:46 Giant Platelets Not Reportable 11/10/20 13:46 Platelet Satelliting Not Reportable 11/10/20 13:46 Plt Morphology Comment Not Reportable 11/10/20 13:46 RBC Morphology Not Reportable 11/10/20 13:46 Dimorphic RBCs Yes 11/10/20 13:46 Polychromasia Not Reportable 11/10/20 13:46 Hypochromasia Not Reportable 11/10/20 13:46 Poikilocytosis Not Reportable 11/10/20 13:46 Anisocytosis Not Reportable 11/10/20 13:46 Microcytosis Rare 11/10/20 13:46 Macrocytosis Rare 11/10/20 13:46 Spherocytes Not Reportable 11/10/20 13:46 Pappenheimer Bodies Not Reportable 11/10/20 13:46 Sickle Cells Not Reportable 11/10/20 13:46 Target Cells Not Reportable 11/10/20 13:46 Tear Drop Cells Not Reportable 11/10/20 13:46 Ovalocytes Not Reportable 11/10/20 13:46 Helmet Cells Not Reportable 11/10/20 13:46 [place] Bodies Not Reportable 11/10/20 13:46 [place] Rings Not Reportable 11/10/20 13:46 [place] Cells Not Reportable 11/10/20 13:46 Bite Cells Not Reportable 11/10/20 13:46 Crenated Cell Not Reportable 11/10/20 13:46 Elliptocytes Not Reportable 11/10/20 13:46 Acanthocytes (Spur) Not Reportable 11/10/20 13:46 Rouleaux Not Reportable 11/10/20 13:46 Hemoglobin C Crystals Not Reportable 11/10/20 13:46 Schistocytes Not Reportable 11/10/20 13:46 Malaria parasites Not Reportable 11/10/20 13:46 Richard Bodies Not Reportable 11/10/20 13:46 Hem Pathologist Commnt No 11/10/20 13:46 PT 15.0 Sec. (12.2-14.9) H 11/11/20 14:38 INR 1.18 (0.87-1.13) H 11/11/20 14:38 APTT 27.9 Sec. (24.2-36.6) 10/26/20 17:25 Heparin Anti-Xa, Unfract Negative (Negative) 11/03/20 11:01 ABG pH 7.348 pH Units (7.350-7.450) L 11/16/20 03:43 POC ABG pCO2 56.0 mmHg (32.0-48.0) H 11/13/20 Unknown ABG pCO2 49.1 mm Hg 11/16/20 03:43 POC ABG pO2 49.1 mmHg (83-108) L 11/13/20 Unknown ABG pO2 91.6 mm Hg (80.0-90.0) H 11/16/20 03:43 POC ABG HCO3 26.6 11/13/20 Unknown ABG HCO3 26.3 mmol/L (20.0-26.0) H 11/16/20 03:43 ABG O2 Saturation 97.0 % (95.0-99.0) 11/16/20 03:43 ABG O2 Content 9.9 (0.0-44) 11/16/20 03:43 POC ABG Base Excess -0.2 11/13/20 Unknown ABG Base Excess 0.5 mmol/L (-2.0-3.0) 11/16/20 03:43 ABG Hemoglobin 7.3 gm/dl (14.0-18.0) L 11/16/20 03:43 ABG Oxyhemoglobin 77.1 (94-98) L 11/13/20 Unknown ABG Carboxyhemoglobin 1.6 % (0.0-5.0) 11/16/20 03:43 ABG Methemoglobin 0.5 % (0.0-1.5) 11/16/20 03:43 ABG Sodium 150.5 mmol/L (136.0-145.0) H 11/13/20 Unknown ABG Potassium 3.3 mmol/L (3.40-4.50) L 11/13/20 Unknown ABG Chloride 121.0 mmol/L (98-107) H 11/13/20 Unknown ABG Glucose 187 mg/dL (65-95) H 11/13/20 Unknown Oxyhemoglobin 95.0 % (95.0-99.0) 11/16/20 03:43 Carboxyhemoglobin 0.8 (0.5-1.5) 11/13/20 Unknown FiO2 80 % 11/16/20 03:43 FiO2 % 100 11/13/20 Unknown Sodium 148 mmol/L (137-145) H 11/16/20 04:00 Potassium 3.5 mmol/L (3.6-5.0) L 11/16/20 04:00 Chloride 115.9 mmol/L (98-107) H 11/16/20 04:00 Carbon Dioxide 26 mmol/L (22-30) 11/16/20 04:00 Anion Gap 10 mmol/L 11/16/20 04:00 BUN 20 mg/dL (9-20) 11/16/20 04:00 Creatinine 0.4 mg/dL (0.8-1.3) L 11/16/20 04:00 Estimated GFR > 60 ml/min 11/16/20 04:00 BUN/Creatinine Ratio 50 % 11/16/20 04:00 Glucose 195 mg/dL (75-100) H 11/16/20 04:00 POC Glucose 122 mg/dL (70-105) H 11/16/20 07:40 Hemoglobin A1c 5.5 % (4-6) 10/27/20 04:42 Lactic Acid 4.30 mmol/L (0.7-2.0) H* 10/31/20 Unknown Calcium 7.6 mg/dL (8.4-10.2) L 11/16/20 04:00 Phosphorus 4.50 mg/dL (2.5-4.5) D 11/06/20 13:03 Magnesium 1.70 mg/dL (1.7-2.3) 11/13/20 23:15 Total Bilirubin < 0.20 mg/dL (0.1-1.2) 11/06/20 06:45 AST 23 units/L (5-40) 11/06/20 06:45 ALT 20 units/L (7-56) 11/06/20 06:45 Alkaline Phosphatase 117 units/L (35-129) 11/06/20 06:45 Total Creatine Kinase 31 units/L (55-170) L 10/26/20 17:28 Troponin T 0.123 ng/mL (0.00-0.029) H* 11/13/20 23:15 Total Protein 5.0 g/dL (6.3-8.2) L 11/06/20 06:45 Albumin 1.4 g/dL (3.9-5) L 11/06/20 06:45 Albumin/Globulin Ratio 0.4 % 11/06/20 06:45 Triglycerides 190 mg/dL (2-149) H 10/26/20 17:25 Cholesterol 92 mg/dL (50-199) 10/26/20 17:25 LDL Cholesterol Direct 33 mg/dL (50-130) L 10/26/20 17:25 HDL Cholesterol 18 mg/dL (40-59) L 10/26/20 17:25 Cholesterol/HDL Ratio 5.11 % 10/26/20 17:25 Serotonin Release Assay See scanned results 11/03/20 11:01 TSH 1.490 mlU/mL (0.270-4.200) 10/26/20 17:28 Arterial Blood Glucose 187 mg/dL (65-95) H 11/13/20 Unknown Arterial Blood Ionized Calcium 4.7 mg/dL (4.6-5.3) 11/13/20 Unknown Urine Color Yellow (Yellow) 10/27/20 Unknown Urine Turbidity Turbid (Clear) 10/27/20 Unknown Urine pH 8.0 (5.0-7.0) H 10/27/20 Unknown Ur Specific [place] 1.020 (1.003-1.030) 10/27/20 Unknown Urine Protein >500 mg/dL (Negative) 10/27/20 Unknown Urine Glucose (UA) Neg mg/dL (Negative) 10/27/20 Unknown Urine Ketones Neg mg/dL (Negative) 10/27/20 Unknown Urine Blood Sm (Negative) 10/27/20 Unknown Urine Nitrite Neg (Negative) 10/27/20 Unknown Urine Bilirubin Neg (Negative) 10/27/20 Unknown Urine Urobilinogen < 2.0 mg/dL (<2.0) 10/27/20 Unknown Ur Leukocyte Esterase Mod (Negative) 10/27/20 Unknown Urine WBC (Auto) > 182.0 /HPF (0.0-6.0) H 10/27/20 Unknown Urine RBC (Auto) 35.0 /HPF (0.0-6.0) 10/27/20 Unknown Urine WBC Clumps 3+ /HPF 10/27/20 Unknown Urine Mucus 3+ /HPF 10/27/20 Unknown Urine Yeast (Budding) 3+ /HPF 10/27/20 Unknown Vancomycin Trough 22.0 ug/mL (5.0-20.0) H 10/30/20 Unknown Salicylates < 0.3 mg/dL (2.8-20.0) L 10/26/20 17:28 Acetaminophen 5.0 ug/mL (10.0-30.0) L 10/26/20 17:28 Heparin-induced Plt Ab Negative (Negative) 11/03/20 11:01 UF Heparin High Dose 0 % Release 11/03/20 11:01 MOISES UFH Low Dose 0.1 2 % Release 11/03/20 11:01 MOISES UFH Low Dose 0.5 0 % Release 11/03/20 11:01 Coronavirus (PCR) Negative (Negative) 10/27/20 Unknown Blood Type O POSITIVE 10/30/20 09:30 Antibody Screen Negative 10/30/20 09:30 Crossmatch See Detail 10/30/20 09:30 Rivas/IV: Voiding Method Indwelling Catheter Active Medications - Current Medications Current Medications: Generic Name Dose Route Start Last Admin Trade Name Freq PRN Reason Stop Dose Admin Acetaminophen 650 mg 10/26/20 22:22 11/13/20 14:36 Acetaminophen 325 Mg Tab PO 650 mg Q4H PRN Administration Pain MILD(1-3)/Fever >100.5/TIERNEY Albuterol 2.5 mg 11/11/20 14:00 11/16/20 07:28 Albuterol 2.5 Mg/3 Ml Nebu IH 2.5 mg TIDRT MARSHALL Administration Lipase/Protease/Amylase 1 each 10/28/20 13:18 Lipase 10,500/Protease 25,000/Amylase 43,750 (Units) Dr Casper FEEDTUBE PRN PRN For Clogged Feeding Tube Enoxaparin Sodium 40 mg 11/07/20 10:00 11/16/20 09:01 Enoxaparin 40 Mg/0.4 Ml Inj SUB-Q 40 mg QDAY@1000 MARSHALL Administration Famotidine 20 mg 11/11/20 10:00 11/16/20 09:02 Famotidine 20 Mg Tab PO 20 mg BID MARSHALL Administration Fentanyl 50 mcg 11/15/20 22:30 Fentanyl 100 Mcg/2 Ml Inj IV Q10MIN PRN ANALGESIA Guaifenesin 200 mg 11/15/20 19:00 11/16/20 09:02 Guaifenesin 100 Mg/5 Ml Oral Liqd PO 200 mg Q4HR MARSHALL Administration Hydrophilic Ointment 1 applic 11/15/20 22:30 Lip Therapy Vaseline TP Q2HR PRN Dry Lips Dextrose 1,000 mls @ 65 mls/hr 11/14/20 08:00 11/15/20 09:06 D5w IV 42 mls/hr DIRECT MARSHALL Administration Dopamine HCl/Dextrose 800 mg in 250 mls @ 12.188 mls/hr 11/14/20 09:00 11/16/20 00:16 Intropin Drip 800 Mg/D5w 250 Ml IV 0 mcg/kg/min TITR MARSHALL 0 mls/hr Titration Protocol 5 MCG/KG/MIN Fentanyl Citrate 2,000 mcg in 100 mls @ 6.55 mls/hr 11/15/20 23:00 11/16/20 07:53 Fentanyl Drip Premix IV 1 mcg/kg/hr TITR MARSHALL 6.55 mls/hr Administration Protocol 1 MCG/KG/HR Norepinephrine 4 mg in 250 mls @ 7.5 mls/hr 11/15/20 23:45 11/16/20 11:55 Levophed Drip 4 Mg/Ns 250 Ml IV 4 mcg/min TITR MARSHALL 15 mls/hr Administration Protocol 2 MCG/MIN Cefepime HCl 2 gm in 100 mls @ 200 mls/hr 11/16/20 11:00 11/16/20 11:17 Cefepime/Ns 2 Gm/100 Ml IV 200 mls/hr Q12HR MARSHALL Administration Protocol Vancomycin HCl 2,000 mg/ 540 mls @ 333 mls/hr 11/16/20 12:00 11/16/20 11:17 Sodium Chloride IV 333 mls/hr Q24H MARSHALL Administration Protocol Midodrine 10 mg 11/06/20 12:00 11/16/20 11:17 Midodrine 5 Mg Tab PO 10 mg TID@0800,1200,1600 MARSHALL Administration Multi-Ingred Cream/Lotion/Oil/Oint 1 applic 11/15/20 22:30 Mineral Oil/Petrolatum, White Ophth Oint 3.5 Gm OU Q4HR PRN Dry Eye(s) Ondansetron HCl 4 mg 10/26/20 22:22 Ondansetron 4 Mg/2 Ml Inj IV Q8H PRN Nausea And Vomiting Simple Syrup 15 ml 10/28/20 13:18 11/10/20 16:01 Simple Syrup 15 Ml FEEDTUBE 15 ml PRN PRN Administration Hypoglycemia Simple Syrup 30 ml 10/28/20 13:18 Simple Syrup 15 Ml FEEDTUBE PRN PRN Hypoglycemia Sodium Bicarbonate 325 mg 10/28/20 13:18 Sodium Bicarbonate 325 Mg Tab FEEDTUBE PRN PRN For Clogged Feeding Tube Sodium Chloride 10 ml 10/27/20 10:00 11/16/20 09:02 Sodium Chloride 0.9% 10 Ml Flush Syringe IV 10 ml BID MARSHALL Administration Sodium Chloride 10 ml 10/26/20 22:22 Sodium Chloride 0.9% 10 Ml Flush Syringe IV PRN PRN LINE FLUSH Sodium Hypochlorite 1 applic 10/28/20 10:00 11/16/20 09:03 Sodium Hypochlorite, Dakin's 1/2 Strength (0.25%) 473 Ml Topical Soln TP 1 applicatio BID MARSHALL Administration Vancomycin HCl 125 mg 11/16/20 12:00 Vancomycin 250 Mg/10 Ml Oral Liqd PO Q6HR [facility] Protocol Nutrition/Malnutrition Assess - Dietary Evaluation Nutrition/Malnutrition Findings: Nutrition Notes Start: 10/27/20 09:15 Freq: Status: Active Protocol: Document 11/13/20 12:36 CW (Rec: 11/13/20 13:13 CW [id number]) Nutrition Notes Initial or Follow up Reassessment Current Diagnosis Acute Kidney Injury,Decubitus( Pressure Ulcer),Sepsis, Hypertension,Respiratory Failure,Hyperlipidemia Other Pertinent Diagnosis AMS, MRSA, Encephalopathy, Metabiloc Acidosis, pneu ,FTT Current Diet Vital HP at 80 ml/hr Labs/Tests Na 154 K 2.9 BUN 26 BG 153 Pertinent Medications Flagyl KCl 10 mEq NS 500 ml Height 6 ft 2 in Weight 128.6 kg [place] Body Weight (kg) 86.36 BMI 36.3 Weight Status Obese Subjective/Other Information F/U for TF change and tolerance. TF had not been changed to promote. Informed JENNI Castaneda at 0900. TF to be changed over to Promote. Vital HP was running at goal and well tolerated. Percent of energy/protein needs met: 100%/100% Burn Absent Trauma Absent GI Symptoms Diarrhea Difficulty In Swallowing,Chewing Skin Integrity/Comment Multiple pressure ulcer,1 infected Current % PO Negligible Minimum of two criteria No Fluid Accumulation Moderate to Severe (severe) #2 Nutrition Diagnosis Increased nutrient needs ( specify in comment below) Diagnosis Progress(for reassessment Continues documentation) #1 Nutrition Diagnosis Inadequate oral intake Diagnosis Progress(for reassessment Continues documentation) Is patient on ventilator? Yes Is Patient Ambulatory and/or Out of Bed No REE-([facility]-confined to bed) 2508.648 Kcal/Kg value to use for calculation 14 Approximate Energy Requirements Using 1800 kcal/Kg Calculation Used for Recommendations Kcal/kg Additional Notes protein needs: 133 - 167g(1.2 - 1.5 g/kgAdBW 111) Fluid needs 1 ml/kcal Nutrition Intervention Change Diet Order: Change TF regimen Nutrition Support: Promote at 80 ml/hr with a free water flush of 250 ml q4h for hypernatremia, once resolved resume flush of 50 ml q4h Kcal 1,920 Protein (gm) 120 Fluid (mL) 1,611 Goal #1 TF tolerance Goal #2 Meet at least 75% EER and protein needs via TF Goal #3 wound healing Anticipated Discharge Needs: unable to determine at this time Follow-Up By: 11/17/20 Additional Comments F/U TF change and tolerance
[2020-11-16] MEDS: VANCOMYCIN 250 MG/10 ML ORAL LIQD PO SCH ×2 (15:07→17:30)
--- NOTE | 2020-11-16 22:19 | Progress Note ---
Assessment and Plan Imp: 1. UTI/bacteremia 2. Aspiration pneumonia 3. Severe sepsis 4. FAZAL 5. Acute respiratory failure, hypoxia 6. Hypernatremia 7. Poor airway clearance Rec: 1. ABX resumed per ID; f/u sputum culture 2. Cont. Albuterol nebs plus CPT vest; added scheduled Mucinex 3. TFs 4. Cont. D5W 5. Wean Levophed to keep MAP 65 or greater 6. DVT PPx 7. He will need trach/PEG & LTAC 8. Prognosis is poor; no family present CCt 31 minutes Subjective Date of service: 11/16/20 Principal diagnosis: Acute Resp Fail, Septic Shock, Sacral Ulcer, AF with RVR Interval history: Re-intubated last PM due to hypoxia, tachycardia, and tachypnea. Patient sedated on Fentanyl but arousable. Also on 4mcg of Levophed. Active Medications Acetaminophen (Acetaminophen 325 Mg Tab) 650 mg PO Q4H PRN PRN Reason: Pain MILD(1-3)/Fever >100.5/TIERNEY Last Admin: 11/13/20 14:36 Dose: 650 mg Documented by: Albuterol (Albuterol 2.5 Mg/3 Ml Nebu) 2.5 mg IH TIDRT [facility] Last Admin: 11/16/20 20:21 Dose: 2.5 mg Documented by: Lipase/Protease/Amylase (Lipase 10,500/Protease 25,000/Amylase 43,750 (Units) Dr Casper) 1 each FEEDTUBE PRN PRN PRN Reason: For Clogged Feeding Tube Enoxaparin Sodium (Enoxaparin 40 Mg/0.4 Ml Inj) 40 mg SUB-Q QDAY@1000 [facility] Last Admin: 11/16/20 09:01 Dose: 40 mg Documented by: Famotidine (Famotidine 20 Mg Tab) 20 mg PO BID [facility] Last Admin: 11/16/20 21:47 Dose: 20 mg Documented by: Fentanyl (Fentanyl 100 Mcg/2 Ml Inj) 50 mcg IV Q10MIN PRN PRN Reason: ANALGESIA Guaifenesin (Guaifenesin 100 Mg/5 Ml Oral Liqd) 200 mg PO Q4HR [facility] Last Admin: 11/16/20 21:49 Dose: 200 mg Documented by: Hydrophilic Ointment (Lip Therapy Vaseline) 1 applic TP Q2HR PRN PRN Reason: Dry Lips Dextrose (D5w) 1,000 mls @ 65 mls/hr IV DIRECT [facility] Last Infusion: 11/16/20 19:00 Dose: Infused Documented by: Dopamine HCl/Dextrose (Intropin Drip 800 Mg/D5w 250 Ml) 800 mg in 250 mls @ 12.188 mls/hr IV TITR [facility]; Protocol Last Titration: 11/16/20 00:16 Dose: 0 mcg/kg/min, 0 mls/hr Documented by: Fentanyl Citrate (Fentanyl Drip Premix) 2,000 mcg in 100 mls @ 6.55 mls/hr IV TITR [facility]; Protocol Last Admin: 11/16/20 07:53 Dose: 1 mcg/kg/hr, 6.55 mls/hr Documented by: Norepinephrine (Levophed Drip 4 Mg/Ns 250 Ml) 4 mg in 250 mls @ 7.5 mls/hr IV TITR [facility]; Protocol Last Titration: 11/16/20 21:43 Dose: 2 mcg/min, 7.5 mls/hr Documented by: Cefepime HCl (Cefepime/Ns 2 Gm/100 Ml) 2 gm in 100 mls @ 200 mls/hr IV Q12HR [facility]; Protocol Last Admin: 11/16/20 21:48 Dose: 200 mls/hr Documented by: Vancomycin HCl 2,000 mg/ (Sodium Chloride) 540 mls @ 333 mls/hr IV Q24H [facility]; Protocol Last Admin: 11/16/20 11:17 Dose: 333 mls/hr Documented by: Midodrine (Midodrine 5 Mg Tab) 10 mg PO TID@0800,1200,1600 [facility] Last Admin: 11/16/20 15:07 Dose: 10 mg Documented by: Multi-Ingred Cream/Lotion/Oil/Oint (Mineral Oil/Petrolatum, White Ophth Oint 3.5 Gm) 1 applic OU Q4HR PRN PRN Reason: Dry Eye(s) Ondansetron HCl (Ondansetron 4 Mg/2 Ml Inj) 4 mg IV Q8H PRN PRN Reason: Nausea And Vomiting Simple Syrup (Simple Syrup 15 Ml) 15 ml FEEDTUBE PRN PRN PRN Reason: Hypoglycemia Last Admin: 11/10/20 16:01 Dose: 15 ml Documented by: Simple Syrup (Simple Syrup 15 Ml) 30 ml FEEDTUBE PRN PRN PRN Reason: Hypoglycemia Sodium Bicarbonate (Sodium Bicarbonate 325 Mg Tab) 325 mg FEEDTUBE PRN PRN PRN Reason: For Clogged Feeding Tube Sodium Chloride (Sodium Chloride 0.9% 10 Ml Flush Syringe) 10 ml IV BID [facility] Last Admin: 11/16/20 21:48 Dose: 10 ml Documented by: Sodium Chloride (Sodium Chloride 0.9% 10 Ml Flush Syringe) 10 ml IV PRN PRN PRN Reason: LINE FLUSH Sodium Hypochlorite (Sodium Hypochlorite, [place]'s 1/2 Strength (0.25%) 473 Ml Topical Soln) 1 applic TP BID [facility] Last Admin: 11/16/20 09:03 Dose: 1 applicatio Documented by: Vancomycin HCl (Vancomycin 250 Mg/10 Ml Oral Liqd) 125 mg PO Q6HR [facility]; Protocol Last Admin: 11/16/20 17:30 Dose: 125 mg Documented by: Objective Vital Signs - 12hr 11/16/20 11/16/20 11/16/20 10:30 11:00 11:26 Temperature Pulse Rate 119 H 124 H 107 H Pulse Rate [ Anterior Bilateral Throughout] Pulse Rate [ From Monitor] Respiratory 15 20 Rate Respiratory Rate [Anterior Bilateral Throughout] Blood Pressure 109/79 107/59 97/47 O2 Sat by Pulse 89 100 Oximetry 11/16/20 11/16/20 11/16/20 11:30 12:00 12:30 Temperature Pulse Rate 101 H 127 H 100 H Pulse Rate [ Anterior Bilateral Throughout] Pulse Rate [ 105 H From Monitor] Respiratory 20 14 20 Rate Respiratory Rate [Anterior Bilateral Throughout] Blood Pressure 85/52 88/55 95/65 O2 Sat by Pulse 100 100 100 Oximetry 11/16/20 11/16/20 11/16/20 12:32 13:00 13:30 Temperature 98.2 F Pulse Rate 112 H 111 H Pulse Rate [ Anterior Bilateral Throughout] Pulse Rate [ From Monitor] Respiratory 16 20 Rate Respiratory Rate [Anterior Bilateral Throughout] Blood Pressure 144/70 111/61 O2 Sat by Pulse 100 100 Oximetry 11/16/20 11/16/20 11/16/20 14:00 14:30 14:46 Temperature Pulse Rate 117 H 107 H Pulse Rate [ 113 H Anterior Bilateral Throughout] Pulse Rate [ From Monitor] Respiratory 20 17 Rate Respiratory 20 Rate [Anterior Bilateral Throughout] Blood Pressure 121/66 109/65 O2 Sat by Pulse 100 100 Oximetry 11/16/20 11/16/20 11/16/20 15:00 15:30 16:00 Temperature Pulse Rate 104 H 98 H 100 H Pulse Rate [ Anterior Bilateral Throughout] Pulse Rate [ 100 H From Monitor] Respiratory 19 21 14 Rate Respiratory Rate [Anterior Bilateral Throughout] Blood Pressure 110/56 118/60 121/54 O2 Sat by Pulse 100 100 100 Oximetry 11/16/20 11/16/20 11/16/20 16:15 16:30 17:00 Temperature Pulse Rate 106 H 109 H 105 H Pulse Rate [ Anterior Bilateral Throughout] Pulse Rate [ From Monitor] Respiratory 20 16 Rate Respiratory Rate [Anterior Bilateral Throughout] Blood Pressure 121/54 113/56 98/49 O2 Sat by Pulse 100 100 100 Oximetry 11/16/20 11/16/20 11/16/20 17:30 17:48 18:00 Temperature 98.2 F Pulse Rate 105 H 95 H Pulse Rate [ Anterior Bilateral Throughout] Pulse Rate [ From Monitor] Respiratory 19 20 Rate Respiratory Rate [Anterior Bilateral Throughout] Blood Pressure 108/51 100/52 O2 Sat by Pulse 100 100 Oximetry 11/16/20 11/16/20 11/16/20 18:30 18:45 19:00 Temperature Pulse Rate 99 H 111 H 96 H Pulse Rate [ Anterior Bilateral Throughout] Pulse Rate [ From Monitor] Respiratory 20 16 20 Rate Respiratory Rate [Anterior Bilateral Throughout] Blood Pressure 130/79 144/75 117/69 O2 Sat by Pulse 100 100 100 Oximetry 11/16/20 11/16/20 11/16/20 19:15 19:30 19:45 Temperature Pulse Rate 105 H 97 H 93 H Pulse Rate [ Anterior Bilateral Throughout] Pulse Rate [ From Monitor] Respiratory 19 20 20 Rate Respiratory Rate [Anterior Bilateral Throughout] Blood Pressure 126/68 119/72 122/69 O2 Sat by Pulse 100 100 100 Oximetry 11/16/20 11/16/20 11/16/20 19:49 20:00 20:15 Temperature 98.6 F Pulse Rate 99 H 105 H Pulse Rate [ Anterior Bilateral Throughout] Pulse Rate [ From Monitor] Respiratory 20 20 Rate Respiratory Rate [Anterior Bilateral Throughout] Blood Pressure 127/74 129/73 O2 Sat by Pulse 100 100 Oximetry 11/16/20 11/16/20 11/16/20 20:21 20:22 20:30 Temperature Pulse Rate 104 H 89 Pulse Rate [ 106 H Anterior Bilateral Throughout] Pulse Rate [ From Monitor] Respiratory 20 Rate Respiratory 20 Rate [Anterior Bilateral Throughout] Blood Pressure 129/73 129/73 O2 Sat by Pulse 100 100 Oximetry 11/16/20 11/16/20 11/16/20 20:45 21:00 21:15 Temperature Pulse Rate 102 H 104 H 109 H Pulse Rate [ Anterior Bilateral Throughout] Pulse Rate [ From Monitor] Respiratory 20 20 19 Rate Respiratory Rate [Anterior Bilateral Throughout] Blood Pressure 131/84 133/74 141/75 O2 Sat by Pulse 100 100 100 Oximetry 11/16/20 11/16/20 21:30 21:45 Temperature Pulse Rate 108 H 98 H Pulse Rate [ Anterior Bilateral Throughout] Pulse Rate [ From Monitor] Respiratory 20 19 Rate Respiratory Rate [Anterior Bilateral Throughout] Blood Pressure 135/70 121/70 O2 Sat by Pulse 100 100 Oximetry Constitutional: alert, other (critically ill on ventilator) Eyes: non-icteric ENT: oropharynx moist Neck: supple Effort: normal Ascultation: Bilateral: rhonchi Percussion: Bilateral: not dull Cardiovascular: regular rate and rhythm (no mrg) Gastrointestinal: normoactive bowel sounds, soft, non-tender Extremities: no cyanosis, cool, anasarca Neurologic: non-focal exam Psychiatric: mood appropriate, affect normal CBC and BMP: 11/16/20 04:00 11/16/20 04:00 ABG, PT/INR, D-dimer: ABG ABG pH 7.348 pH Units (7.350-7.450) L 11/16/20 03:43 POC ABG pCO2 56.0 mmHg (32.0-48.0) H 11/13/20 Unknown ABG pCO2 49.1 mm Hg 11/16/20 03:43 POC ABG pO2 49.1 mmHg (83-108) L 11/13/20 Unknown ABG pO2 91.6 mm Hg (80.0-90.0) H 11/16/20 03:43 POC ABG HCO3 26.6 11/13/20 Unknown ABG O2 Saturation 97.0 % (95.0-99.0) 11/16/20 03:43 PT/INR, D-dimer PT 15.0 Sec. (12.2-14.9) H 11/11/20 14:38 INR 1.18 (0.87-1.13) H 11/11/20 14:38 Abnormal lab findings: Abnormal Labs 10/26/20 10/26/20 10/26/20 17:25 17:25 17:25 WBC 23.3 H RBC 3.10 L Hgb 9.6 L Hct 30.3 L MCV 98 H MCH MCHC RDW 17.4 H Plt Count 521 H Lymph % (Auto) Seg Neutrophils % Seg Neuts % (Manual) 78.0 H Lymphocytes % (Manual) 11.0 L Nucleated RBC % Seg Neutrophils # Seg Neutrophils # Man 18.2 H Lymphocytes # (Manual) Monocytes # (Manual) 1.4 H PT INR ABG pH POC ABG pCO2 POC ABG pO2 ABG pO2 ABG HCO3 ABG O2 Saturation ABG Base Excess ABG Hemoglobin ABG Oxyhemoglobin ABG Sodium ABG Potassium ABG Chloride ABG Glucose Oxyhemoglobin Carboxyhemoglobin Sodium 148 H Potassium Chloride 109.3 H Carbon Dioxide 19 L BUN 57 H Creatinine 1.5 H Glucose 151 H POC Glucose Lactic Acid 9.60 H* Calcium Phosphorus Magnesium Total Creatine Kinase Troponin T 0.062 H Total Protein Albumin 1.7 L Triglycerides 190 H LDL Cholesterol Direct 33 L HDL Cholesterol 18 L Arterial Blood Glucose Arterial Blood Ionized Calcium Urine pH Urine WBC (Auto) Vancomycin Trough Salicylates Acetaminophen Crossmatch 10/26/20 10/26/20 10/26/20 17:28 17:28 17:28 WBC RBC Hgb Hct MCV MCH MCHC RDW Plt Count Lymph % (Auto) Seg Neutrophils % Seg Neuts % (Manual) Lymphocytes % (Manual) Nucleated RBC % Seg Neutrophils # Seg Neutrophils # Man Lymphocytes # (Manual) Monocytes # (Manual) PT INR ABG pH POC ABG pCO2 POC ABG pO2 ABG pO2 ABG HCO3 ABG O2 Saturation ABG Base Excess ABG Hemoglobin ABG Oxyhemoglobin ABG Sodium ABG Potassium ABG Chloride ABG Glucose Oxyhemoglobin Carboxyhemoglobin Sodium Potassium Chloride Carbon Dioxide BUN Creatinine Glucose POC Glucose Lactic Acid Calcium Phosphorus Magnesium Total Creatine Kinase 31 L Troponin T Total Protein Albumin Triglycerides LDL Cholesterol Direct HDL Cholesterol Arterial Blood Glucose Arterial Blood Ionized Calcium Urine pH Urine WBC (Auto) Vancomycin Trough Salicylates < 0.3 L Acetaminophen 5.0 L Crossmatch 10/26/20 10/26/20 10/26/20 17:30 20:11 22:00 WBC RBC Hgb Hct MCV MCH MCHC RDW Plt Count Lymph % (Auto) Seg Neutrophils % Seg Neuts % (Manual) Lymphocytes % (Manual) Nucleated RBC % Seg Neutrophils # Seg Neutrophils # Man Lymphocytes # (Manual) Monocytes # (Manual) PT INR ABG pH 7.235 L POC ABG pCO2 POC ABG pO2 ABG pO2 312.4 H ABG HCO3 16.4 L ABG O2 Saturation 99.5 H ABG Base Excess -10.4 L ABG Hemoglobin 11.0 L ABG Oxyhemoglobin ABG Sodium ABG Potassium ABG Chloride ABG Glucose Oxyhemoglobin Carboxyhemoglobin Sodium Potassium Chloride Carbon Dioxide BUN Creatinine Glucose POC Glucose Lactic Acid 7.70 H* 6.40 H* Calcium Phosphorus Magnesium Total Creatine Kinase Troponin T Total Protein Albumin Triglycerides LDL Cholesterol Direct HDL Cholesterol Arterial Blood Glucose Arterial Blood Ionized Calcium Urine pH Urine WBC (Auto) Vancomycin Trough Salicylates Acetaminophen Crossmatch 10/27/20 10/27/20 10/27/20 03:25 03:30 04:00 WBC 20.3 H RBC 3.10 L Hgb 9.6 L Hct 30.6 L MCV 99 H MCH MCHC 31 L RDW 16.9 H Plt Count Lymph % (Auto) Seg Neutrophils % Seg Neuts % (Manual) Lymphocytes % (Manual) Nucleated RBC % Seg Neutrophils # Seg Neutrophils # Man 11.6 H Lymphocytes # (Manual) Monocytes # (Manual) PT INR ABG pH 7.218 L POC ABG pCO2 POC ABG pO2 62.9 L ABG pO2 ABG HCO3 ABG O2 Saturation ABG Base Excess ABG Hemoglobin 10.6 L ABG Oxyhemoglobin 86.6 L ABG Sodium ABG Potassium 4.8 H ABG Chloride 114.0 H ABG Glucose 116 H Oxyhemoglobin Carboxyhemoglobin 0.4 L Sodium Potassium Chloride 110.2 H Carbon Dioxide 17 L BUN 55 H Creatinine 1.5 H Glucose 109 H POC Glucose Lactic Acid Calcium 7.9 L Phosphorus Magnesium Total Creatine Kinase Troponin T Total Protein Albumin 1.3 L Triglycerides LDL Cholesterol Direct HDL Cholesterol Arterial Blood Glucose 116 H Arterial Blood Ionized Calcium Urine pH Urine WBC (Auto) Vancomycin Trough Salicylates Acetaminophen Crossmatch 10/27/20 10/28/20 10/28/20 Unknown 00:40 00:40 WBC 23.1 H RBC 2.42 L Hgb 7.5 L Hct 23.7 L D MCV 98 H MCH MCHC RDW 16.8 H Plt Count Lymph % (Auto) Seg Neutrophils % Seg Neuts % (Manual) Lymphocytes % (Manual) Nucleated RBC % Seg Neutrophils # Seg Neutrophils # Man Lymphocytes # (Manual) Monocytes # (Manual) PT INR ABG pH POC ABG pCO2 POC ABG pO2 ABG pO2 ABG HCO3 ABG O2 Saturation ABG Base Excess ABG Hemoglobin ABG Oxyhemoglobin ABG Sodium ABG Potassium ABG Chloride ABG Glucose Oxyhemoglobin Carboxyhemoglobin Sodium Potassium Chloride 111.4 H Carbon Dioxide 19 L BUN 49 H Creatinine Glucose POC Glucose Lactic Acid Calcium 7.3 L Phosphorus Magnesium 1.40 L Total Creatine Kinase Troponin T Total Protein 5.8 L Albumin 1.2 L Triglycerides LDL Cholesterol Direct HDL Cholesterol Arterial Blood Glucose Arterial Blood Ionized Calcium Urine pH 8.0 H Urine WBC (Auto) > 182.0 H Vancomycin Trough Salicylates Acetaminophen Crossmatch 10/28/20 10/28/20 10/28/20 03:30 05:36 05:36 WBC RBC Hgb Hct MCV MCH MCHC RDW Plt Count Lymph % (Auto) Seg Neutrophils % Seg Neuts % (Manual) Lymphocytes % (Manual) Nucleated RBC % Seg Neutrophils # Seg Neutrophils # Man Lymphocytes # (Manual) Monocytes # (Manual) PT INR ABG pH 7.175 L POC ABG pCO2 POC ABG pO2 71.5 L ABG pO2 ABG HCO3 ABG O2 Saturation ABG Base Excess ABG Hemoglobin 8.8 L ABG Oxyhemoglobin ABG Sodium ABG Potassium 4.7 H ABG Chloride 114.0 H ABG Glucose 100 H Oxyhemoglobin Carboxyhemoglobin Sodium Potassium Chloride 114.6 H Carbon Dioxide 15 L BUN 48 H Creatinine 1.4 H Glucose POC Glucose Lactic Acid 7.60 H* Calcium 7.7 L Phosphorus Magnesium Total Creatine Kinase Troponin T Total Protein Albumin Triglycerides LDL Cholesterol Direct HDL Cholesterol Arterial Blood Glucose 100 H Arterial Blood Ionized Calcium 4.4 L Urine pH Urine WBC (Auto) Vancomycin Trough Salicylates Acetaminophen Crossmatch 10/28/20 10/28/20 10/29/20 17:18 23:18 03:50 WBC RBC Hgb Hct MCV MCH MCHC RDW Plt Count Lymph % (Auto) Seg Neutrophils % Seg Neuts % (Manual) Lymphocytes % (Manual) Nucleated RBC % Seg Neutrophils # Seg Neutrophils # Man Lymphocytes # (Manual) Monocytes # (Manual) PT INR ABG pH POC ABG pCO2 30.0 L POC ABG pO2 ABG pO2 ABG HCO3 ABG O2 Saturation ABG Base Excess ABG Hemoglobin 8.1 L ABG Oxyhemoglobin ABG Sodium ABG Potassium ABG Chloride 113.0 H ABG Glucose 153 H Oxyhemoglobin Carboxyhemoglobin 0.4 L Sodium Potassium Chloride Carbon Dioxide BUN Creatinine Glucose POC Glucose 134 H 149 H Lactic Acid Calcium Phosphorus Magnesium Total Creatine Kinase Troponin T Total Protein Albumin Triglycerides LDL Cholesterol Direct HDL Cholesterol Arterial Blood Glucose 153 H Arterial Blood Ionized Calcium 4.1 L Urine pH Urine WBC (Auto) Vancomycin Trough Salicylates Acetaminophen Crossmatch 10/29/20 10/29/20 10/29/20 05:09 05:15 05:15 WBC 23.9 H RBC 2.66 L Hgb 8.3 L Hct 26.3 L MCV 99 H MCH MCHC RDW 17.5 H Plt Count Lymph % (Auto) Seg Neutrophils % Seg Neuts % (Manual) Lymphocytes % (Manual) Nucleated RBC % Seg Neutrophils # Seg Neutrophils # Man Lymphocytes # (Manual) Monocytes # (Manual) PT INR ABG pH POC ABG pCO2 POC ABG pO2 ABG pO2 ABG HCO3 ABG O2 Saturation ABG Base Excess ABG Hemoglobin ABG Oxyhemoglobin ABG Sodium ABG Potassium ABG Chloride ABG Glucose Oxyhemoglobin Carboxyhemoglobin Sodium Potassium Chloride 110.4 H Carbon Dioxide 15 L BUN 40 H Creatinine Glucose 140 H POC Glucose 123 H Lactic Acid Calcium 7.0 L Phosphorus Magnesium Total Creatine Kinase Troponin T Total Protein 6.0 L Albumin 1.0 L Triglycerides LDL Cholesterol Direct HDL Cholesterol Arterial Blood Glucose Arterial Blood Ionized Calcium Urine pH Urine WBC (Auto) Vancomycin Trough Salicylates Acetaminophen Crossmatch 10/29/20 10/29/20 10/29/20 05:15 10:37 11:41 WBC RBC Hgb Hct MCV MCH MCHC RDW Plt Count Lymph % (Auto) Seg Neutrophils % Seg Neuts % (Manual) Lymphocytes % (Manual) Nucleated RBC % Seg Neutrophils # Seg Neutrophils # Man Lymphocytes # (Manual) Monocytes # (Manual) PT INR ABG pH POC ABG pCO2 POC ABG pO2 ABG pO2 ABG HCO3 ABG O2 Saturation ABG Base Excess ABG Hemoglobin ABG Oxyhemoglobin ABG Sodium ABG Potassium ABG Chloride ABG Glucose Oxyhemoglobin Carboxyhemoglobin Sodium Potassium Chloride Carbon Dioxide BUN Creatinine Glucose POC Glucose 121 H Lactic Acid 9.90 H* 10.90 H* Calcium Phosphorus Magnesium Total Creatine Kinase Troponin T Total Protein Albumin Triglycerides LDL Cholesterol Direct HDL Cholesterol Arterial Blood Glucose Arterial Blood Ionized Calcium Urine pH Urine WBC (Auto) Vancomycin Trough Salicylates Acetaminophen Crossmatch 10/29/20 10/29/20 10/30/20 15:56 23:24 02:26 WBC RBC Hgb Hct MCV MCH MCHC RDW Plt Count Lymph % (Auto) Seg Neutrophils % Seg Neuts % (Manual) Lymphocytes % (Manual) Nucleated RBC % Seg Neutrophils # Seg Neutrophils # Man Lymphocytes # (Manual) Monocytes # (Manual) PT INR ABG pH POC ABG pCO2 POC ABG pO2 76.6 L ABG pO2 ABG HCO3 ABG O2 Saturation ABG Base Excess ABG Hemoglobin 6.4 L ABG Oxyhemoglobin 93.8 L ABG Sodium ABG Potassium 2.9 L ABG Chloride 110.0 H ABG Glucose 212 H Oxyhemoglobin Carboxyhemoglobin Sodium Potassium Chloride Carbon Dioxide BUN Creatinine Glucose POC Glucose 132 H 175 H Lactic Acid Calcium Phosphorus Magnesium Total Creatine Kinase Troponin T Total Protein Albumin Triglycerides LDL Cholesterol Direct HDL Cholesterol Arterial Blood Glucose 212 H Arterial Blood Ionized Calcium 3.9 L Urine pH Urine WBC (Auto) Vancomycin Trough Salicylates Acetaminophen Crossmatch 10/30/20 10/30/20 10/30/20 04:54 04:54 05:14 WBC 20.7 H RBC 2.28 L Hgb 7.0 L Hct 21.9 L MCV 96 H MCH MCHC RDW 17.0 H Plt Count 90 L Lymph % (Auto) Seg Neutrophils % Seg Neuts % (Manual) Lymphocytes % (Manual) Nucleated RBC % Seg Neutrophils # Seg Neutrophils # Man Lymphocytes # (Manual) Monocytes # (Manual) PT INR ABG pH POC ABG pCO2 POC ABG pO2 ABG pO2 ABG HCO3 ABG O2 Saturation ABG Base Excess ABG Hemoglobin ABG Oxyhemoglobin ABG Sodium ABG Potassium ABG Chloride ABG Glucose Oxyhemoglobin Carboxyhemoglobin Sodium Potassium 3.0 L D Chloride Carbon Dioxide BUN 28 H Creatinine 0.6 L Glucose 214 H POC Glucose 187 H Lactic Acid Calcium 6.2 L Phosphorus Magnesium Total Creatine Kinase Troponin T Total Protein Albumin Triglycerides LDL Cholesterol Direct HDL Cholesterol Arterial Blood Glucose Arterial Blood Ionized Calcium Urine pH Urine WBC (Auto) Vancomycin Trough Salicylates Acetaminophen Crossmatch 10/30/20 10/30/20 10/30/20 09:30 11:40 17:51 WBC RBC Hgb Hct MCV MCH MCHC RDW Plt Count Lymph % (Auto) Seg Neutrophils % Seg Neuts % (Manual) Lymphocytes % (Manual) Nucleated RBC % Seg Neutrophils # Seg Neutrophils # Man Lymphocytes # (Manual) Monocytes # (Manual) PT INR ABG pH POC ABG pCO2 POC ABG pO2 ABG pO2 ABG HCO3 ABG O2 Saturation ABG Base Excess ABG Hemoglobin ABG Oxyhemoglobin ABG Sodium ABG Potassium ABG Chloride ABG Glucose Oxyhemoglobin Carboxyhemoglobin Sodium Potassium Chloride Carbon Dioxide BUN Creatinine Glucose POC Glucose 183 H 136 H Lactic Acid Calcium Phosphorus Magnesium Total Creatine Kinase Troponin T Total Protein Albumin Triglycerides LDL Cholesterol Direct HDL Cholesterol Arterial Blood Glucose Arterial Blood Ionized Calcium Urine pH Urine WBC (Auto) Vancomycin Trough Salicylates Acetaminophen Crossmatch See Detail 10/30/20 10/30/20 10/30/20 18:53 23:25 Unknown WBC RBC Hgb Hct MCV MCH MCHC RDW Plt Count Lymph % (Auto) Seg Neutrophils % Seg Neuts % (Manual) Lymphocytes % (Manual) Nucleated RBC % Seg Neutrophils # Seg Neutrophils # Man Lymphocytes # (Manual) Monocytes # (Manual) PT INR ABG pH POC ABG pCO2 POC ABG pO2 ABG pO2 ABG HCO3 ABG O2 Saturation ABG Base Excess ABG Hemoglobin ABG Oxyhemoglobin ABG Sodium ABG Potassium ABG Chloride ABG Glucose Oxyhemoglobin Carboxyhemoglobin Sodium Potassium Chloride Carbon Dioxide BUN Creatinine Glucose POC Glucose 130 H Lactic Acid Calcium Phosphorus Magnesium Total Creatine Kinase Troponin T Total Protein Albumin Triglycerides LDL Cholesterol Direct HDL Cholesterol Arterial Blood Glucose Arterial Blood Ionized Calcium Urine pH Urine WBC (Auto) Vancomycin Trough 21.4 H 22.0 H Salicylates Acetaminophen Crossmatch 10/30/20 10/31/20 10/31/20 Unknown 02:54 03:42 WBC 21.1 H 23.0 H RBC 2.36 L Hgb 7.3 L 11.4 L D Hct 22.7 L 34.1 L D MCV 96 H MCH MCHC RDW 17.1 H 16.2 H Plt Count 73 L 33 L Lymph % (Auto) Seg Neutrophils % Seg Neuts % (Manual) Lymphocytes % (Manual) Nucleated RBC % Seg Neutrophils # Seg Neutrophils # Man Lymphocytes # (Manual) Monocytes # (Manual) PT INR ABG pH 7.517 H POC ABG pCO2 25.7 L POC ABG pO2 52.3 L ABG pO2 ABG HCO3 ABG O2 Saturation ABG Base Excess ABG Hemoglobin ABG Oxyhemoglobin 90.8 L ABG Sodium ABG Potassium ABG Chloride 109.0 H ABG Glucose 147 H Oxyhemoglobin Carboxyhemoglobin Sodium Potassium Chloride Carbon Dioxide BUN Creatinine Glucose POC Glucose Lactic Acid Calcium Phosphorus Magnesium Total Creatine Kinase Troponin T Total Protein Albumin Triglycerides LDL Cholesterol Direct HDL Cholesterol Arterial Blood Glucose 147 H Arterial Blood Ionized Calcium 4.0 L Urine pH Urine WBC (Auto) Vancomycin Trough Salicylates Acetaminophen Crossmatch 10/31/20 10/31/20 10/31/20 04:37 04:37 05:08 WBC 21.7 H RBC Hgb Hct MCV MCH MCHC RDW 16.1 H Plt Count 39 L Lymph % (Auto) Seg Neutrophils % Seg Neuts % (Manual) Lymphocytes % (Manual) Nucleated RBC % Seg Neutrophils # Seg Neutrophils # Man Lymphocytes # (Manual) Monocytes # (Manual) PT INR ABG pH POC ABG pCO2 POC ABG pO2 ABG pO2 ABG HCO3 ABG O2 Saturation ABG Base Excess ABG Hemoglobin ABG Oxyhemoglobin ABG Sodium ABG Potassium ABG Chloride ABG Glucose Oxyhemoglobin Carboxyhemoglobin Sodium Potassium Chloride 108.4 H Carbon Dioxide BUN 25 H Creatinine 0.5 L Glucose 140 H POC Glucose 140 H Lactic Acid Calcium 6.1 L Phosphorus Magnesium 1.50 L Total Creatine Kinase Troponin T Total Protein Albumin Triglycerides LDL Cholesterol Direct HDL Cholesterol Arterial Blood Glucose Arterial Blood Ionized Calcium Urine pH Urine WBC (Auto) Vancomycin Trough Salicylates Acetaminophen Crossmatch 10/31/20 10/31/20 10/31/20 11:12 18:50 23:21 WBC RBC Hgb Hct MCV MCH MCHC RDW Plt Count Lymph % (Auto) Seg Neutrophils % Seg Neuts % (Manual) Lymphocytes % (Manual) Nucleated RBC % Seg Neutrophils # Seg Neutrophils # Man Lymphocytes # (Manual) Monocytes # (Manual) PT INR ABG pH POC ABG pCO2 POC ABG pO2 ABG pO2 ABG HCO3 ABG O2 Saturation ABG Base Excess ABG Hemoglobin ABG Oxyhemoglobin ABG Sodium ABG Potassium ABG Chloride ABG Glucose Oxyhemoglobin Carboxyhemoglobin Sodium Potassium Chloride Carbon Dioxide BUN Creatinine Glucose POC Glucose 125 H 142 H 127 H Lactic Acid Calcium Phosphorus Magnesium Total Creatine Kinase Troponin T Total Protein Albumin Triglycerides LDL Cholesterol Direct HDL Cholesterol Arterial Blood Glucose Arterial Blood Ionized Calcium Urine pH Urine WBC (Auto) Vancomycin Trough Salicylates Acetaminophen Crossmatch 10/31/20 11/01/20 11/01/20 Unknown 03:40 04:21 WBC RBC Hgb Hct MCV MCH MCHC RDW Plt Count Lymph % (Auto) Seg Neutrophils % Seg Neuts % (Manual) Lymphocytes % (Manual) Nucleated RBC % Seg Neutrophils # Seg Neutrophils # Man Lymphocytes # (Manual) Monocytes # (Manual) PT INR ABG pH 7.489 H POC ABG pCO2 POC ABG pO2 ABG pO2 77.2 L ABG HCO3 ABG O2 Saturation ABG Base Excess ABG Hemoglobin 7.1 L ABG Oxyhemoglobin ABG Sodium ABG Potassium ABG Chloride ABG Glucose Oxyhemoglobin Carboxyhemoglobin Sodium Potassium 3.1 L Chloride 107.1 H Carbon Dioxide BUN 25 H Creatinine 0.5 L Glucose 148 H POC Glucose Lactic Acid 4.30 H* Calcium 6.0 L Phosphorus Magnesium Total Creatine Kinase Troponin T Total Protein Albumin Triglycerides LDL Cholesterol Direct HDL Cholesterol Arterial Blood Glucose Arterial Blood Ionized Calcium Urine pH Urine WBC (Auto) Vancomycin Trough Salicylates Acetaminophen Crossmatch 11/01/20 11/01/20 11/01/20 05:13 11:42 17:38 WBC RBC Hgb Hct MCV MCH MCHC RDW Plt Count Lymph % (Auto) Seg Neutrophils % Seg Neuts % (Manual) Lymphocytes % (Manual) Nucleated RBC % Seg Neutrophils # Seg Neutrophils # Man Lymphocytes # (Manual) Monocytes # (Manual) PT INR ABG pH POC ABG pCO2 POC ABG pO2 ABG pO2 ABG HCO3 ABG O2 Saturation ABG Base Excess ABG Hemoglobin ABG Oxyhemoglobin ABG Sodium ABG Potassium ABG Chloride ABG Glucose Oxyhemoglobin Carboxyhemoglobin Sodium Potassium Chloride Carbon Dioxide BUN Creatinine Glucose POC Glucose 139 H 139 H 161 H Lactic Acid Calcium Phosphorus Magnesium Total Creatine Kinase Troponin T Total Protein Albumin Triglycerides LDL Cholesterol Direct HDL Cholesterol Arterial Blood Glucose Arterial Blood Ionized Calcium Urine pH Urine WBC (Auto) Vancomycin Trough Salicylates Acetaminophen Crossmatch 11/01/20 11/01/20 11/02/20 23:20 Unknown 04:30 WBC 18.2 H RBC 3.27 L Hgb 9.9 L Hct 30.1 L D MCV MCH MCHC RDW 15.7 H Plt Count 34 L Lymph % (Auto) Seg Neutrophils % Seg Neuts % (Manual) Lymphocytes % (Manual) Nucleated RBC % Seg Neutrophils # Seg Neutrophils # Man Lymphocytes # (Manual) Monocytes # (Manual) PT INR ABG pH 7.456 H POC ABG pCO2 POC ABG pO2 ABG pO2 ABG HCO3 ABG O2 Saturation ABG Base Excess ABG Hemoglobin 9.2 L ABG Oxyhemoglobin ABG Sodium ABG Potassium ABG Chloride ABG Glucose Oxyhemoglobin Carboxyhemoglobin Sodium Potassium Chloride Carbon Dioxide BUN Creatinine Glucose POC Glucose 168 H Lactic Acid Calcium Phosphorus Magnesium Total Creatine Kinase Troponin T Total Protein Albumin Triglycerides LDL Cholesterol Direct HDL Cholesterol Arterial Blood Glucose Arterial Blood Ionized Calcium Urine pH Urine WBC (Auto) Vancomycin Trough Salicylates Acetaminophen Crossmatch 11/02/20 11/02/20 11/02/20 06:29 08:40 08:40 WBC 16.6 H RBC 2.87 L Hgb 8.8 L Hct 26.6 L MCV MCH MCHC RDW 15.8 H Plt Count 30 L Lymph % (Auto) Seg Neutrophils % Seg Neuts % (Manual) 97.0 H Lymphocytes % (Manual) 2.0 L Nucleated RBC % 1.0 H Seg Neutrophils # Seg Neutrophils # Man 16.1 H Lymphocytes # (Manual) 0.3 L Monocytes # (Manual) PT INR ABG pH POC ABG pCO2 POC ABG pO2 ABG pO2 ABG HCO3 ABG O2 Saturation ABG Base Excess ABG Hemoglobin ABG Oxyhemoglobin ABG Sodium ABG Potassium ABG Chloride ABG Glucose Oxyhemoglobin Carboxyhemoglobin Sodium Potassium 2.4 L* D Chloride 110.2 H Carbon Dioxide BUN 23 H Creatinine 0.4 L Glucose 154 H POC Glucose 131 H Lactic Acid Calcium 6.1 L Phosphorus Magnesium 1.50 L Total Creatine Kinase Troponin T Total Protein Albumin Triglycerides LDL Cholesterol Direct HDL Cholesterol Arterial Blood Glucose Arterial Blood Ionized Calcium Urine pH Urine WBC (Auto) Vancomycin Trough Salicylates Acetaminophen Crossmatch 11/02/20 11/02/20 11/02/20 13:17 17:25 18:05 WBC RBC Hgb Hct MCV MCH MCHC RDW Plt Count Lymph % (Auto) Seg Neutrophils % Seg Neuts % (Manual) Lymphocytes % (Manual) Nucleated RBC % Seg Neutrophils # Seg Neutrophils # Man Lymphocytes # (Manual) Monocytes # (Manual) PT INR ABG pH POC ABG pCO2 POC ABG pO2 ABG pO2 ABG HCO3 ABG O2 Saturation ABG Base Excess ABG Hemoglobin ABG Oxyhemoglobin ABG Sodium ABG Potassium ABG Chloride ABG Glucose Oxyhemoglobin Carboxyhemoglobin Sodium Potassium 3.1 L D Chloride Carbon Dioxide BUN Creatinine Glucose POC Glucose 134 H 140 H Lactic Acid Calcium Phosphorus Magnesium Total Creatine Kinase Troponin T Total Protein Albumin Triglycerides LDL Cholesterol Direct HDL Cholesterol Arterial Blood Glucose Arterial Blood Ionized Calcium Urine pH Urine WBC (Auto) Vancomycin Trough Salicylates Acetaminophen Crossmatch 11/02/20 11/03/20 11/03/20 23:36 04:15 05:07 WBC RBC Hgb Hct MCV MCH MCHC RDW Plt Count Lymph % (Auto) Seg Neutrophils % Seg Neuts % (Manual) Lymphocytes % (Manual) Nucleated RBC % Seg Neutrophils # Seg Neutrophils # Man Lymphocytes # (Manual) Monocytes # (Manual) PT INR ABG pH POC ABG pCO2 POC ABG pO2 ABG pO2 ABG HCO3 ABG O2 Saturation ABG Base Excess ABG Hemoglobin ABG Oxyhemoglobin ABG Sodium ABG Potassium ABG Chloride ABG Glucose Oxyhemoglobin Carboxyhemoglobin Sodium Potassium 3.0 L Chloride 111.8 H Carbon Dioxide BUN 24 H Creatinine 0.3 L Glucose 141 H POC Glucose 127 H 156 H Lactic Acid Calcium 5.8 L* Phosphorus Magnesium 1.60 L Total Creatine Kinase Troponin T Total Protein Albumin Triglycerides LDL Cholesterol Direct HDL Cholesterol Arterial Blood Glucose Arterial Blood Ionized Calcium Urine pH Urine WBC (Auto) Vancomycin Trough Salicylates Acetaminophen Crossmatch 11/03/20 11/03/20 11/04/20 11:14 17:31 00:17 WBC RBC Hgb Hct MCV MCH MCHC RDW Plt Count Lymph % (Auto) Seg Neutrophils % Seg Neuts % (Manual) Lymphocytes % (Manual) Nucleated RBC % Seg Neutrophils # Seg Neutrophils # Man Lymphocytes # (Manual) Monocytes # (Manual) PT INR ABG pH POC ABG pCO2 POC ABG pO2 ABG pO2 ABG HCO3 ABG O2 Saturation ABG Base Excess ABG Hemoglobin ABG Oxyhemoglobin ABG Sodium ABG Potassium ABG Chloride ABG Glucose Oxyhemoglobin Carboxyhemoglobin Sodium Potassium Chloride Carbon Dioxide BUN Creatinine Glucose POC Glucose 137 H 151 H 156 H Lactic Acid Calcium Phosphorus Magnesium Total Creatine Kinase Troponin T Total Protein Albumin Triglycerides LDL Cholesterol Direct HDL Cholesterol Arterial Blood Glucose Arterial Blood Ionized Calcium Urine pH Urine WBC (Auto) Vancomycin Trough Salicylates Acetaminophen Crossmatch 11/04/20 11/04/20 11/04/20 05:34 05:34 11:16 WBC 21.9 H RBC 2.67 L Hgb 8.2 L Hct 24.8 L MCV MCH MCHC RDW 15.6 H Plt Count 48 L Lymph % (Auto) Seg Neutrophils % Seg Neuts % (Manual) Lymphocytes % (Manual) Nucleated RBC % Seg Neutrophils # Seg Neutrophils # Man Lymphocytes # (Manual) Monocytes # (Manual) PT INR ABG pH POC ABG pCO2 POC ABG pO2 ABG pO2 ABG HCO3 ABG O2 Saturation ABG Base Excess ABG Hemoglobin ABG Oxyhemoglobin ABG Sodium ABG Potassium ABG Chloride ABG Glucose Oxyhemoglobin Carboxyhemoglobin Sodium 146 H Potassium Chloride 114.6 H Carbon Dioxide BUN 29 H Creatinine 0.3 L Glucose 173 H POC Glucose 156 H Lactic Acid Calcium 5.7 L* Phosphorus Magnesium Total Creatine Kinase Troponin T Total Protein Albumin Triglycerides LDL Cholesterol Direct HDL Cholesterol Arterial Blood Glucose Arterial Blood Ionized Calcium Urine pH Urine WBC (Auto) Vancomycin Trough Salicylates Acetaminophen Crossmatch 11/04/20 11/04/20 11/04/20 11:42 17:18 23:12 WBC RBC Hgb Hct MCV MCH MCHC RDW Plt Count Lymph % (Auto) Seg Neutrophils % Seg Neuts % (Manual) Lymphocytes % (Manual) Nucleated RBC % Seg Neutrophils # Seg Neutrophils # Man Lymphocytes # (Manual) Monocytes # (Manual) PT INR ABG pH 7.525 H POC ABG pCO2 28.9 L POC ABG pO2 64.3 L ABG pO2 ABG HCO3 ABG O2 Saturation ABG Base Excess ABG Hemoglobin 8.2 L ABG Oxyhemoglobin ABG Sodium ABG Potassium 3.3 L ABG Chloride 115.0 H ABG Glucose 165 H Oxyhemoglobin Carboxyhemoglobin Sodium Potassium Chloride Carbon Dioxide BUN Creatinine Glucose POC Glucose 144 H 155 H Lactic Acid Calcium Phosphorus Magnesium Total Creatine Kinase Troponin T Total Protein Albumin Triglycerides LDL Cholesterol Direct HDL Cholesterol Arterial Blood Glucose 165 H Arterial Blood Ionized Calcium 4.0 L Urine pH Urine WBC (Auto) Vancomycin Trough Salicylates Acetaminophen Crossmatch 11/05/20 11/05/20 11/05/20 04:48 04:48 05:57 WBC 17.4 H RBC 2.49 L Hgb 7.8 L Hct 23.5 L MCV MCH MCHC RDW 16.0 H Plt Count 69 L Lymph % (Auto) Seg Neutrophils % Seg Neuts % (Manual) Lymphocytes % (Manual) Nucleated RBC % Seg Neutrophils # Seg Neutrophils # Man Lymphocytes # (Manual) Monocytes # (Manual) PT INR ABG pH POC ABG pCO2 POC ABG pO2 ABG pO2 ABG HCO3 ABG O2 Saturation ABG Base Excess ABG Hemoglobin ABG Oxyhemoglobin ABG Sodium ABG Potassium ABG Chloride ABG Glucose Oxyhemoglobin Carboxyhemoglobin Sodium 147 H Potassium 3.5 L Chloride 115.4 H Carbon Dioxide BUN 34 H Creatinine 0.3 L Glucose 154 H POC Glucose 146 H Lactic Acid Calcium 6.1 L Phosphorus 2.00 L Magnesium Total Creatine Kinase Troponin T Total Protein Albumin Triglycerides LDL Cholesterol Direct HDL Cholesterol Arterial Blood Glucose Arterial Blood Ionized Calcium Urine pH Urine WBC (Auto) Vancomycin Trough Salicylates Acetaminophen Crossmatch 11/05/20 11/05/20 11/05/20 11:33 17:52 23:37 WBC RBC Hgb Hct MCV MCH MCHC RDW Plt Count Lymph % (Auto) Seg Neutrophils % Seg Neuts % (Manual) Lymphocytes % (Manual) Nucleated RBC % Seg Neutrophils # Seg Neutrophils # Man Lymphocytes # (Manual) Monocytes # (Manual) PT INR ABG pH POC ABG pCO2 POC ABG pO2 ABG pO2 ABG HCO3 ABG O2 Saturation ABG Base Excess ABG Hemoglobin ABG Oxyhemoglobin ABG Sodium ABG Potassium ABG Chloride ABG Glucose Oxyhemoglobin Carboxyhemoglobin Sodium Potassium Chloride Carbon Dioxide BUN Creatinine Glucose POC Glucose 144 H 136 H 151 H Lactic Acid Calcium Phosphorus Magnesium Total Creatine Kinase Troponin T Total Protein Albumin Triglycerides LDL Cholesterol Direct HDL Cholesterol Arterial Blood Glucose Arterial Blood Ionized Calcium Urine pH Urine WBC (Auto) Vancomycin Trough Salicylates Acetaminophen Crossmatch 11/06/20 11/06/20 11/06/20 05:36 06:45 06:45 WBC 15.0 H RBC 2.33 L Hgb 7.2 L Hct 22.1 L MCV 95 H MCH MCHC RDW 16.2 H Plt Count 103 L Lymph % (Auto) Seg Neutrophils % Seg Neuts % (Manual) Lymphocytes % (Manual) Nucleated RBC % Seg Neutrophils # Seg Neutrophils # Man Lymphocytes # (Manual) Monocytes # (Manual) PT INR ABG pH POC ABG pCO2 POC ABG pO2 ABG pO2 ABG HCO3 ABG O2 Saturation ABG Base Excess ABG Hemoglobin ABG Oxyhemoglobin ABG Sodium ABG Potassium ABG Chloride ABG Glucose Oxyhemoglobin Carboxyhemoglobin Sodium 148 H Potassium Chloride 118.2 H Carbon Dioxide BUN 32 H Creatinine 0.4 L Glucose 153 H POC Glucose 140 H Lactic Acid Calcium 6.4 L Phosphorus 0.90 L* D Magnesium Total Creatine Kinase Troponin T Total Protein 5.0 L Albumin 1.4 L Triglycerides LDL Cholesterol Direct HDL Cholesterol Arterial Blood Glucose Arterial Blood Ionized Calcium Urine pH Urine WBC (Auto) Vancomycin Trough Salicylates Acetaminophen Crossmatch 11/06/20 11/06/20 11/06/20 11:32 17:37 23:19 WBC RBC Hgb Hct MCV MCH MCHC RDW Plt Count Lymph % (Auto) Seg Neutrophils % Seg Neuts % (Manual) Lymphocytes % (Manual) Nucleated RBC % Seg Neutrophils # Seg Neutrophils # Man Lymphocytes # (Manual) Monocytes # (Manual) PT INR ABG pH POC ABG pCO2 POC ABG pO2 ABG pO2 ABG HCO3 ABG O2 Saturation ABG Base Excess ABG Hemoglobin ABG Oxyhemoglobin ABG Sodium ABG Potassium ABG Chloride ABG Glucose Oxyhemoglobin Carboxyhemoglobin Sodium Potassium Chloride Carbon Dioxide BUN Creatinine Glucose POC Glucose 132 H 133 H 145 H Lactic Acid Calcium Phosphorus Magnesium Total Creatine Kinase Troponin T Total Protein Albumin Triglycerides LDL Cholesterol Direct HDL Cholesterol Arterial Blood Glucose Arterial Blood Ionized Calcium Urine pH Urine WBC (Auto) Vancomycin Trough Salicylates Acetaminophen Crossmatch 11/07/20 11/07/20 11/07/20 12:55 16:45 16:45 WBC 12.0 H RBC 3.63 L Hgb 11.4 L D Hct MCV 104 H MCH MCHC 30 L RDW 18.0 H Plt Count 133 L Lymph % (Auto) Seg Neutrophils % Seg Neuts % (Manual) Lymphocytes % (Manual) Nucleated RBC % Seg Neutrophils # Seg Neutrophils # Man Lymphocytes # (Manual) Monocytes # (Manual) PT INR ABG pH POC ABG pCO2 POC ABG pO2 ABG pO2 ABG HCO3 ABG O2 Saturation ABG Base Excess ABG Hemoglobin 7.7 L ABG Oxyhemoglobin ABG Sodium ABG Potassium ABG Chloride ABG Glucose Oxyhemoglobin 94.9 L Carboxyhemoglobin Sodium 149 H Potassium Chloride 119.8 H Carbon Dioxide BUN 31 H Creatinine 0.4 L Glucose 130 H POC Glucose Lactic Acid Calcium 6.5 L Phosphorus Magnesium Total Creatine Kinase Troponin T Total Protein Albumin Triglycerides LDL Cholesterol Direct HDL Cholesterol Arterial Blood Glucose Arterial Blood Ionized Calcium Urine pH Urine WBC (Auto) Vancomycin Trough Salicylates Acetaminophen Crossmatch 11/07/20 11/08/20 11/08/20 17:23 00:12 06:11 WBC RBC Hgb Hct MCV MCH MCHC RDW Plt Count Lymph % (Auto) Seg Neutrophils % Seg Neuts % (Manual) Lymphocytes % (Manual) Nucleated RBC % Seg Neutrophils # Seg Neutrophils # Man Lymphocytes # (Manual) Monocytes # (Manual) PT INR ABG pH POC ABG pCO2 POC ABG pO2 ABG pO2 ABG HCO3 ABG O2 Saturation ABG Base Excess ABG Hemoglobin ABG Oxyhemoglobin ABG Sodium ABG Potassium ABG Chloride ABG Glucose Oxyhemoglobin Carboxyhemoglobin Sodium Potassium Chloride Carbon Dioxide BUN Creatinine Glucose POC Glucose 115 H 129 H 109 H Lactic Acid Calcium Phosphorus Magnesium Total Creatine Kinase Troponin T Total Protein Albumin Triglycerides LDL Cholesterol Direct HDL Cholesterol Arterial Blood Glucose Arterial Blood Ionized Calcium Urine pH Urine WBC (Auto) Vancomycin Trough Salicylates Acetaminophen Crossmatch 11/08/20 11/08/20 11/08/20 17:36 23:49 23:58 WBC RBC Hgb Hct MCV MCH MCHC RDW Plt Count Lymph % (Auto) Seg Neutrophils % Seg Neuts % (Manual) Lymphocytes % (Manual) Nucleated RBC % Seg Neutrophils # Seg Neutrophils # Man Lymphocytes # (Manual) Monocytes # (Manual) PT INR ABG pH POC ABG pCO2 POC ABG pO2 ABG pO2 ABG HCO3 ABG O2 Saturation ABG Base Excess ABG Hemoglobin ABG Oxyhemoglobin ABG Sodium ABG Potassium ABG Chloride ABG Glucose Oxyhemoglobin Carboxyhemoglobin Sodium Potassium Chloride Carbon Dioxide BUN Creatinine Glucose 138 H POC Glucose 38 L 36 L Lactic Acid Calcium Phosphorus Magnesium Total Creatine Kinase Troponin T Total Protein Albumin Triglycerides LDL Cholesterol Direct HDL Cholesterol Arterial Blood Glucose Arterial Blood Ionized Calcium Urine pH Urine WBC (Auto) Vancomycin Trough Salicylates Acetaminophen Crossmatch 11/09/20 11/09/20 11/09/20 05:33 06:00 06:00 WBC 13.1 H RBC 2.35 L Hgb 7.6 L D Hct 22.9 L D MCV 97 H MCH MCHC RDW 16.8 H Plt Count Lymph % (Auto) 9.1 L Seg Neutrophils % 84.8 H Seg Neuts % (Manual) Lymphocytes % (Manual) Nucleated RBC % Seg Neutrophils # 11.1 H Seg Neutrophils # Man Lymphocytes # (Manual) Monocytes # (Manual) PT INR ABG pH POC ABG pCO2 POC ABG pO2 ABG pO2 ABG HCO3 ABG O2 Saturation ABG Base Excess ABG Hemoglobin ABG Oxyhemoglobin ABG Sodium ABG Potassium ABG Chloride ABG Glucose Oxyhemoglobin Carboxyhemoglobin Sodium 150 H Potassium 3.4 L D Chloride 119.2 H Carbon Dioxide BUN 30 H Creatinine 0.4 L Glucose 137 H POC Glucose 58 L Lactic Acid Calcium 7.2 L Phosphorus Magnesium Total Creatine Kinase Troponin T Total Protein Albumin Triglycerides LDL Cholesterol Direct HDL Cholesterol Arterial Blood Glucose Arterial Blood Ionized Calcium Urine pH Urine WBC (Auto) Vancomycin Trough Salicylates Acetaminophen Crossmatch 11/09/20 11/09/20 11/10/20 06:08 22:16 13:46 WBC 16.1 H RBC 2.52 L Hgb 8.1 L Hct 25.2 L MCV 100 H MCH MCHC RDW 18.2 H Plt Count Lymph % (Auto) Seg Neutrophils % Seg Neuts % (Manual) 90.0 H Lymphocytes % (Manual) 3.0 L Nucleated RBC % Seg Neutrophils # Seg Neutrophils # Man 14.5 H Lymphocytes # (Manual) 0.5 L Monocytes # (Manual) 1.1 H PT INR ABG pH POC ABG pCO2 POC ABG pO2 ABG pO2 ABG HCO3 ABG O2 Saturation ABG Base Excess ABG Hemoglobin ABG Oxyhemoglobin ABG Sodium ABG Potassium ABG Chloride ABG Glucose Oxyhemoglobin Carboxyhemoglobin Sodium Potassium Chloride Carbon Dioxide BUN Creatinine Glucose POC Glucose 122 H 120 H Lactic Acid Calcium Phosphorus Magnesium Total Creatine Kinase Troponin T Total Protein Albumin Triglycerides LDL Cholesterol Direct HDL Cholesterol Arterial Blood Glucose Arterial Blood Ionized Calcium Urine pH Urine WBC (Auto) Vancomycin Trough Salicylates Acetaminophen Crossmatch 11/10/20 11/10/20 11/11/20 13:46 15:59 11:43 WBC RBC Hgb Hct MCV MCH MCHC RDW Plt Count Lymph % (Auto) Seg Neutrophils % Seg Neuts % (Manual) Lymphocytes % (Manual) Nucleated RBC % Seg Neutrophils # Seg Neutrophils # Man Lymphocytes # (Manual) Monocytes # (Manual) PT INR ABG pH POC ABG pCO2 POC ABG pO2 ABG pO2 ABG HCO3 ABG O2 Saturation ABG Base Excess ABG Hemoglobin ABG Oxyhemoglobin ABG Sodium ABG Potassium ABG Chloride ABG Glucose Oxyhemoglobin Carboxyhemoglobin Sodium 153 H Potassium Chloride 120.6 H Carbon Dioxide BUN 27 H Creatinine 0.3 L Glucose 112 H POC Glucose 40 L 124 H Lactic Acid Calcium 6.8 L Phosphorus Magnesium Total Creatine Kinase Troponin T Total Protein Albumin Triglycerides LDL Cholesterol Direct HDL Cholesterol Arterial Blood Glucose Arterial Blood Ionized Calcium Urine pH Urine WBC (Auto) Vancomycin Trough Salicylates Acetaminophen Crossmatch 11/11/20 11/11/20 11/11/20 14:38 14:38 14:38 WBC 13.8 H RBC 2.43 L Hgb 7.6 L Hct 24.0 L MCV 99 H MCH MCHC RDW 18.0 H Plt Count Lymph % (Auto) Seg Neutrophils % Seg Neuts % (Manual) Lymphocytes % (Manual) Nucleated RBC % Seg Neutrophils # Seg Neutrophils # Man Lymphocytes # (Manual) Monocytes # (Manual) PT 15.0 H INR 1.18 H ABG pH POC ABG pCO2 POC ABG pO2 ABG pO2 ABG HCO3 ABG O2 Saturation ABG Base Excess ABG Hemoglobin ABG Oxyhemoglobin ABG Sodium ABG Potassium ABG Chloride ABG Glucose Oxyhemoglobin Carboxyhemoglobin Sodium 154 H Potassium 3.1 L D Chloride 122.1 H Carbon Dioxide BUN 26 H Creatinine 0.4 L Glucose 140 H POC Glucose Lactic Acid Calcium 7.3 L Phosphorus Magnesium Total Creatine Kinase Troponin T Total Protein Albumin Triglycerides LDL Cholesterol Direct HDL Cholesterol Arterial Blood Glucose Arterial Blood Ionized Calcium Urine pH Urine WBC (Auto) Vancomycin Trough Salicylates Acetaminophen Crossmatch 11/11/20 11/11/20 11/12/20 18:39 18:42 00:03 WBC RBC Hgb Hct MCV MCH MCHC RDW Plt Count Lymph % (Auto) Seg Neutrophils % Seg Neuts % (Manual) Lymphocytes % (Manual) Nucleated RBC % Seg Neutrophils # Seg Neutrophils # Man Lymphocytes # (Manual) Monocytes # (Manual) PT INR ABG pH POC ABG pCO2 POC ABG pO2 ABG pO2 ABG HCO3 ABG O2 Saturation ABG Base Excess ABG Hemoglobin ABG Oxyhemoglobin ABG Sodium ABG Potassium ABG Chloride ABG Glucose Oxyhemoglobin Carboxyhemoglobin Sodium Potassium Chloride Carbon Dioxide BUN Creatinine Glucose POC Glucose 45 L 66 L 108 H Lactic Acid Calcium Phosphorus Magnesium Total Creatine Kinase Troponin T Total Protein Albumin Triglycerides LDL Cholesterol Direct HDL Cholesterol Arterial Blood Glucose Arterial Blood Ionized Calcium Urine pH Urine WBC (Auto) Vancomycin Trough Salicylates Acetaminophen Crossmatch 04/11/12/20 11/12/20 05:44 08:33 08:33 WBC 13.4 H RBC 2.35 L Hgb 7.5 L Hct 23.7 L MCV 101 H MCH MCHC RDW 19.7 H Plt Count Lymph % (Auto) Seg Neutrophils % Seg Neuts % (Manual) Lymphocytes % (Manual) Nucleated RBC % Seg Neutrophils # Seg Neutrophils # Man Lymphocytes # (Manual) Monocytes # (Manual) PT INR ABG pH POC ABG pCO2 POC ABG pO2 ABG pO2 ABG HCO3 ABG O2 Saturation ABG Base Excess ABG Hemoglobin ABG Oxyhemoglobin ABG Sodium ABG Potassium ABG Chloride ABG Glucose Oxyhemoglobin Carboxyhemoglobin Sodium 154 H Potassium 2.9 L* Chloride 121.4 H Carbon Dioxide BUN 26 H Creatinine 0.4 L Glucose 153 H POC Glucose 114 H Lactic Acid Calcium 7.3 L Phosphorus Magnesium Total Creatine Kinase Troponin T Total Protein Albumin Triglycerides LDL Cholesterol Direct HDL Cholesterol Arterial Blood Glucose Arterial Blood Ionized Calcium Urine pH Urine WBC (Auto) Vancomycin Trough Salicylates Acetaminophen Crossmatch 11/12/20 11/12/20 11/13/20 11:38 17:17 05:28 WBC RBC Hgb Hct MCV MCH MCHC RDW Plt Count Lymph % (Auto) Seg Neutrophils % Seg Neuts % (Manual) Lymphocytes % (Manual) Nucleated RBC % Seg Neutrophils # Seg Neutrophils # Man Lymphocytes # (Manual) Monocytes # (Manual) PT INR ABG pH POC ABG pCO2 51.4 H POC ABG pO2 41.7 L ABG pO2 ABG HCO3 ABG O2 Saturation ABG Base Excess ABG Hemoglobin 9.1 L ABG Oxyhemoglobin 72.2 L ABG Sodium 151.1 H ABG Potassium 3.2 L ABG Chloride 122.0 H ABG Glucose 191 H Oxyhemoglobin Carboxyhemoglobin Sodium Potassium Chloride Carbon Dioxide BUN Creatinine Glucose POC Glucose 125 H 127 H Lactic Acid Calcium Phosphorus Magnesium Total Creatine Kinase Troponin T Total Protein Albumin Triglycerides LDL Cholesterol Direct HDL Cholesterol Arterial Blood Glucose 191 H Arterial Blood Ionized Calcium Urine pH Urine WBC (Auto) Vancomycin Trough Salicylates Acetaminophen Crossmatch 11/13/20 11/13/20 11/13/20 10:46 23:15 23:15 WBC 12.2 H RBC 2.41 L Hgb 7.7 L Hct 24.5 L MCV 102 H MCH MCHC RDW 23.0 H Plt Count Lymph % (Auto) Seg Neutrophils % Seg Neuts % (Manual) Lymphocytes % (Manual) Nucleated RBC % Seg Neutrophils # Seg Neutrophils # Man Lymphocytes # (Manual) Monocytes # (Manual) PT INR ABG pH POC ABG pCO2 POC ABG pO2 ABG pO2 ABG HCO3 ABG O2 Saturation ABG Base Excess ABG Hemoglobin ABG Oxyhemoglobin ABG Sodium ABG Potassium ABG Chloride ABG Glucose Oxyhemoglobin Carboxyhemoglobin Sodium Potassium Chloride Carbon Dioxide BUN Creatinine Glucose POC Glucose 153 H Lactic Acid Calcium Phosphorus Magnesium Total Creatine Kinase Troponin T 0.123 H* Total Protein Albumin Triglycerides LDL Cholesterol Direct HDL Cholesterol Arterial Blood Glucose Arterial Blood Ionized Calcium Urine pH Urine WBC (Auto) Vancomycin Trough Salicylates Acetaminophen Crossmatch 11/13/20 11/13/20 11/14/20 23:15 Unknown 05:26 WBC RBC Hgb Hct MCV MCH MCHC RDW Plt Count Lymph % (Auto) Seg Neutrophils % Seg Neuts % (Manual) Lymphocytes % (Manual) Nucleated RBC % Seg Neutrophils # Seg Neutrophils # Man Lymphocytes # (Manual) Monocytes # (Manual) PT INR ABG pH 7.295 L POC ABG pCO2 56.0 H POC ABG pO2 49.1 L ABG pO2 ABG HCO3 ABG O2 Saturation ABG Base Excess ABG Hemoglobin 8.3 L ABG Oxyhemoglobin 77.1 L ABG Sodium 150.5 H ABG Potassium 3.3 L ABG Chloride 121.0 H ABG Glucose 187 H Oxyhemoglobin Carboxyhemoglobin Sodium 152 H Potassium 3.3 L Chloride 117.8 H Carbon Dioxide BUN 25 H Creatinine 0.4 L Glucose 123 H POC Glucose 46 L Lactic Acid Calcium 7.5 L Phosphorus Magnesium Total Creatine Kinase Troponin T Total Protein Albumin Triglycerides LDL Cholesterol Direct HDL Cholesterol Arterial Blood Glucose 187 H Arterial Blood Ionized Calcium Urine pH Urine WBC (Auto) Vancomycin Trough Salicylates Acetaminophen Crossmatch 11/14/20 11/14/20 11/14/20 06:26 22:26 22:26 WBC RBC 2.75 L Hgb 9.0 L Hct 27.8 L MCV 101 H MCH 33 H MCHC RDW 22.8 H Plt Count Lymph % (Auto) Seg Neutrophils % Seg Neuts % (Manual) Lymphocytes % (Manual) Nucleated RBC % Seg Neutrophils # Seg Neutrophils # Man Lymphocytes # (Manual) Monocytes # (Manual) PT INR ABG pH POC ABG pCO2 POC ABG pO2 ABG pO2 ABG HCO3 ABG O2 Saturation ABG Base Excess ABG Hemoglobin ABG Oxyhemoglobin ABG Sodium ABG Potassium ABG Chloride ABG Glucose Oxyhemoglobin Carboxyhemoglobin Sodium 147 H Potassium 3.3 L Chloride 114.3 H Carbon Dioxide BUN 23 H Creatinine 0.3 L Glucose 209 H POC Glucose 135 H Lactic Acid Calcium 7.4 L Phosphorus Magnesium Total Creatine Kinase Troponin T Total Protein Albumin Triglycerides LDL Cholesterol Direct HDL Cholesterol Arterial Blood Glucose Arterial Blood Ionized Calcium Urine pH Urine WBC (Auto) Vancomycin Trough Salicylates Acetaminophen Crossmatch 11/14/20 11/15/20 11/15/20 23:22 04:28 05:57 WBC RBC Hgb Hct MCV MCH MCHC RDW Plt Count Lymph % (Auto) Seg Neutrophils % Seg Neuts % (Manual) Lymphocytes % (Manual) Nucleated RBC % Seg Neutrophils # Seg Neutrophils # Man Lymphocytes # (Manual) Monocytes # (Manual) PT INR ABG pH POC ABG pCO2 POC ABG pO2 ABG pO2 ABG HCO3 ABG O2 Saturation ABG Base Excess ABG Hemoglobin ABG Oxyhemoglobin ABG Sodium ABG Potassium ABG Chloride ABG Glucose Oxyhemoglobin Carboxyhemoglobin Sodium 152 H Potassium Chloride 118.1 H Carbon Dioxide BUN 22 H Creatinine 0.3 L Glucose 190 H POC Glucose 136 H 151 H Lactic Acid Calcium 7.5 L Phosphorus Magnesium Total Creatine Kinase Troponin T Total Protein Albumin Triglycerides LDL Cholesterol Direct HDL Cholesterol Arterial Blood Glucose Arterial Blood Ionized Calcium Urine pH Urine WBC (Auto) Vancomycin Trough Salicylates Acetaminophen Crossmatch 11/15/20 11/15/20 11/15/20 11:40 16:56 21:53 WBC RBC Hgb Hct MCV MCH MCHC RDW Plt Count Lymph % (Auto) Seg Neutrophils % Seg Neuts % (Manual) Lymphocytes % (Manual) Nucleated RBC % Seg Neutrophils # Seg Neutrophils # Man Lymphocytes # (Manual) Monocytes # (Manual) PT INR ABG pH 7.457 H POC ABG pCO2 POC ABG pO2 ABG pO2 48.3 L ABG HCO3 26.1 H ABG O2 Saturation 82.9 L ABG Base Excess ABG Hemoglobin 9.7 L ABG Oxyhemoglobin ABG Sodium ABG Potassium ABG Chloride ABG Glucose Oxyhemoglobin 81.0 L Carboxyhemoglobin Sodium Potassium Chloride Carbon Dioxide BUN Creatinine Glucose POC Glucose 129 H 115 H Lactic Acid Calcium Phosphorus Magnesium Total Creatine Kinase Troponin T Total Protein Albumin Triglycerides LDL Cholesterol Direct HDL Cholesterol Arterial Blood Glucose Arterial Blood Ionized Calcium Urine pH Urine WBC (Auto) Vancomycin Trough Salicylates Acetaminophen Crossmatch 11/15/20 11/16/20 11/16/20 23:12 00:07 00:09 WBC RBC Hgb Hct MCV MCH MCHC RDW Plt Count Lymph % (Auto) Seg Neutrophils % Seg Neuts % (Manual) Lymphocytes % (Manual) Nucleated RBC % Seg Neutrophils # Seg Neutrophils # Man Lymphocytes # (Manual) Monocytes # (Manual) PT INR ABG pH POC ABG pCO2 POC ABG pO2 ABG pO2 95.1 H ABG HCO3 26.6 H ABG O2 Saturation ABG Base Excess ABG Hemoglobin 7.5 L ABG Oxyhemoglobin ABG Sodium ABG Potassium ABG Chloride ABG Glucose Oxyhemoglobin Carboxyhemoglobin Sodium Potassium Chloride Carbon Dioxide BUN Creatinine Glucose POC Glucose 13 L 153 H Lactic Acid Calcium Phosphorus Magnesium Total Creatine Kinase Troponin T Total Protein Albumin Triglycerides LDL Cholesterol Direct HDL Cholesterol Arterial Blood Glucose Arterial Blood Ionized Calcium Urine pH Urine WBC (Auto) Vancomycin Trough Salicylates Acetaminophen Crossmatch 11/16/20 11/16/20 11/16/20 03:43 04:00 04:00 WBC RBC 2.33 L Hgb 7.7 L Hct 24.5 L MCV 105 H MCH 33 H MCHC 31 L RDW 22.9 H Plt Count Lymph % (Auto) Seg Neutrophils % Seg Neuts % (Manual) Lymphocytes % (Manual) Nucleated RBC % Seg Neutrophils # Seg Neutrophils # Man Lymphocytes # (Manual) Monocytes # (Manual) PT INR ABG pH 7.348 L POC ABG pCO2 POC ABG pO2 ABG pO2 91.6 H ABG HCO3 26.3 H ABG O2 Saturation ABG Base Excess ABG Hemoglobin 7.3 L ABG Oxyhemoglobin ABG Sodium ABG Potassium ABG Chloride ABG Glucose Oxyhemoglobin Carboxyhemoglobin Sodium 148 H Potassium 3.5 L Chloride 115.9 H Carbon Dioxide BUN Creatinine 0.4 L Glucose 195 H POC Glucose Lactic Acid Calcium 7.6 L Phosphorus Magnesium Total Creatine Kinase Troponin T Total Protein Albumin Triglycerides LDL Cholesterol Direct HDL Cholesterol Arterial Blood Glucose Arterial Blood Ionized Calcium Urine pH Urine WBC (Auto) Vancomycin Trough Salicylates Acetaminophen Crossmatch 11/16/20 11/16/20 11/16/20 05:16 07:40 12:10 WBC RBC Hgb Hct MCV MCH MCHC RDW Plt Count Lymph % (Auto) Seg Neutrophils % Seg Neuts % (Manual) Lymphocytes % (Manual) Nucleated RBC % Seg Neutrophils # Seg Neutrophils # Man Lymphocytes # (Manual) Monocytes # (Manual) PT INR ABG pH POC ABG pCO2 POC ABG pO2 ABG pO2 ABG HCO3 ABG O2 Saturation ABG Base Excess ABG Hemoglobin ABG Oxyhemoglobin ABG Sodium ABG Potassium ABG Chloride ABG Glucose Oxyhemoglobin Carboxyhemoglobin Sodium Potassium Chloride Carbon Dioxide BUN Creatinine Glucose POC Glucose 61 L 122 H 140 H Lactic Acid Calcium Phosphorus Magnesium Total Creatine Kinase Troponin T Total Protein Albumin Triglycerides LDL Cholesterol Direct HDL Cholesterol Arterial Blood Glucose Arterial Blood Ionized Calcium Urine pH Urine WBC (Auto) Vancomycin Trough Salicylates Acetaminophen Crossmatch 11/16/20 17:14 WBC RBC Hgb Hct MCV MCH MCHC RDW Plt Count Lymph % (Auto) Seg Neutrophils % Seg Neuts % (Manual) Lymphocytes % (Manual) Nucleated RBC % Seg Neutrophils # Seg Neutrophils # Man Lymphocytes # (Manual) Monocytes # (Manual) PT INR ABG pH POC ABG pCO2 POC ABG pO2 ABG pO2 ABG HCO3 ABG O2 Saturation ABG Base Excess ABG Hemoglobin ABG Oxyhemoglobin ABG Sodium ABG Potassium ABG Chloride ABG Glucose Oxyhemoglobin Carboxyhemoglobin Sodium Potassium Chloride Carbon Dioxide BUN Creatinine Glucose POC Glucose 139 H Lactic Acid Calcium Phosphorus Magnesium Total Creatine Kinase Troponin T Total Protein Albumin Triglycerides LDL Cholesterol Direct HDL Cholesterol Arterial Blood Glucose Arterial Blood Ionized Calcium Urine pH Urine WBC (Auto) Vancomycin Trough Salicylates Acetaminophen Crossmatch Chest x-ray: report reviewed, image reviewed Allied health notes reviewed: nursing
[2020-11-17] MEDS: VANCOMYCIN 250 MG/10 ML ORAL LIQD PO SCH ×4 (01:04→18:16)
[2020-11-17] MEDS: guaiFENesin 100 MG/5 ML ORAL LIQD PO SCH ×6 (01:05→22:05)
[2020-11-17] MEDS: DEXTROSE 5% IN WATER 1,000 ML IV SCH ×2 (01:37→19:39)
--- NOTE | 2020-11-17 03:16 | XRay Report ---
CHEST - 1 VIEW INDICATION: follow up respiratory failure COMPARISON: Yesterday FINDINGS: SUPPORT DEVICES: Stable support device positioning. HEART: Stable cardiomediastinal silhouette. LUNGS/PLEURA: Moderate patchy multifocal airspace disease is stable. ADDITIONAL FINDINGS: None. IMPRESSION: Unchanged exam. Signer Name: Prashanth Colindres MD Signed: 11/17/2020 3:11 AM Workstation Name: [id number]
[2020-11-17] MEDS: SODIUM HYPOCHLORITE, DAKIN'S 1/2 STRENGTH (0.25%) 473 ML TOPICAL SOLN TP SCH ×3 (05:39→22:17)
[2020-11-17] MEDS: MIDODRINE 5 MG TAB PO SCH ×3 (07:37→16:55)
[2020-11-17] MEDS: ALBUTEROL 2.5 MG/3 ML NEBU IH SCH ×3 (08:07→20:22)
[2020-11-17] MEDS: CEFEPIME/NS 2 GM/100 ML 2 GM/100 ML BAG IV SCH (09:16)
[2020-11-17] MEDS: FAMOTIDINE 20 MG TAB PO SCH ×2 (09:17→22:16)
[2020-11-17] MEDS: ENOXAPARIN 40 MG/0.4 ML INJ SUB-Q SCH (09:17)
[2020-11-17 10:37] LABS: Hematocrit 20.2 % (35.5-45.6); Hemoglobin 6.6 gm/dl (11.8-15.2); Mean Corpuscular HGB Conc 33 % (32-34); Mean Corpuscular Volume 100 fl (84-94); Platelet Count 211 K/mm3 (140-440); Red Blood Count 2.02 M/mm3 (3.65-5.03)
[2020-11-17 10:38] LABS: Red Cell Distribution Width 22.4 % (13.2-15.2)
[2020-11-17 10:41] LABS: Blood Urea Nitrogen 23 mg/dL (9-20); Calcium 7.3 mg/dL (8.4-10.2); Hemolysis Index 8
[2020-11-17 10:44] LABS: BUN/Creatinine Ratio 58
[2020-11-17] MEDS ORDERED: SODIUM CHLORIDE 0.9% 500 ML 500 ML IV SCH (11:00)
[2020-11-17] MEDS: VANCOMYCIN 2,000 MG in SODIUM CHLORIDE 0.9% 500 ML 500 ML IV SCH (12:06)
--- NOTE | 2020-11-17 12:12 | Progress Note ---
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 He is intubated and sedated on evaluation and thus HPI is obtained per the chart. Pt was sent to the hospital for evaluation of AMS. Following arrival, pt diagnosed with necrotic sacral ulcer, sepsis with septic shock requiring vasopressor support, UTI, bilateral PNA with acute respiratory failure requiring intubation, COVID-19 testing negative, anemia, FAZAL. Pt was reported to have SVT prehospital for which he received IV adenosine and cardiology was consulted. tte reviewed - EF 55-60%, no significant abnormalities. 11/17/20 Pt is intubated, unresponsive. Tele reviewed: Afib 100s. Low HR AF 30s, High AF 130s. Afib with uncontrolled ventricular response. Continue to hold AV Yariel blocking agents in setting of bradycardic episodes. Continue Dopamine 5mcg/kg gtt No systemic AC at this time in setting of anemia requiring PRBC tx, thrombocytopenia and sacral ulcer Elevated Troponin Considering pt's advanced age and comorbidities will plan for conservative cardiac management. Anemia requiring transfusion Discontinue Lovenox DVT prophylaxis. Continue to hold AC. transfusion per primary team. Acute Respiratory Failure PT was intubated again over the weekend. Management per pulmonology. Pneumonia IV antibiotics per ID. Septic Shock COntinue Levophed gtt as needed to support pressures. DVT Prophylaxis. Discontinue Lovenox DVT prophylaxis. No systemic AC at this time in setting of anemia requiring PRBC tx, thrombocytopenia and sacral ulcer Continue Sequential Compression Device Therapy. The patient has been seen in conjunction with Dr. Juliette Baldwin who agrees with the assessment and plan of care. - Patient Problems (1) AMS (altered mental status) Current Visit: Yes Status: Acute (2) Atrial fibrillation with RVR Current Visit: Yes Status: Acute Currently in SR with PJCs. No AC in setting of anemia. (3) Acute respiratory failure Current Visit: Yes Status: Acute (4) Bilateral pneumonia Current Visit: Yes Status: Acute (5) Sepsis Current Visit: Yes Status: Acute (6) Sepsis associated hypotension Current Visit: Yes Status: Acute Pt is requiring Levophed titration to maintain pressure (7) Sacral decubitus ulcer, stage IV Current Visit: Yes Status: Acute (8) UTI (urinary tract infection) Current Visit: Yes Status: Acute (9) FAZAL (acute kidney injury) Current Visit: Yes Status: Acute (10) Hypomagnesemia Current Visit: Yes Status: Acute (11) Anemia Current Visit: Yes Status: Acute (12) Thrombocytopenia Current Visit: Yes Status: Acute Subjective Date of service: 11/17/20 Principal diagnosis: Acute Resp Fail, Septic Shock, Sacral Ulcer, AF with RVR Interval history: Pt is intubated, unresponsive. Tele reviewed: Afib 100s. Low HR AF 30s, High AF 130s. Objective Last Vital Signs Temp 97.6 F 11/17/20 08:00 Pulse 96 H 11/17/20 11:15 Resp 16 11/17/20 11:15 BP 106/71 11/17/20 11:15 Pulse Ox 100 11/17/20 11:15 - Physical Examination General: Other (lethargic ) HEENT: Positive: Normocephaly Neck: Positive: neck supple, trachea midline Cardiac: Positive: irregularly irregular, S1/S2 Lungs: Positive: Ventilated Respirations Neuro: Positive: Grossly Intact, Other (lethargic) Abdomen: Positive: Soft Skin: Positive: Wound. Negative: Rash Musculoskeletal: No Pain Extremities: Present: upper extr. pulses, lower extr. pulses, edema, Other (chronic skin changes noted) - Labs and Meds CBC 11/17/20 Range/Units 09:50 WBC 8.9 (4.5-11.0) K/mm3 RBC 2.02 L (3.65-5.03) M/mm3 Hgb 6.6 L (11.8-15.2) gm/dl Hct 20.2 L (35.5-45.6) % Plt Count 211 (140-440) K/mm3 Comprehensive Metabolic Panel 11/17/20 Range/Units 09:50 Sodium 144 (137-145) mmol/L Potassium 4.1 (3.6-5.0) mmol/L Chloride 111.8 H (98-107) mmol/L Carbon Dioxide 28 (22-30) mmol/L BUN 23 H (9-20) mg/dL Creatinine 0.4 L (0.8-1.3) mg/dL Glucose 142 H (75-100) mg/dL Calcium 7.3 L (8.4-10.2) mg/dL - Imaging and Cardiology EKG: report reviewed, image reviewed Echo: report reviewed (10/28/2020- EF 55-60%, no significant valvular abnormalities) - Telemetry EKG Rhythm: Atrial Fibrillation - Allied health notes Allied health notes reviewed: nursing
--- NOTE | 2020-11-17 13:43 | Electrocardiograph Report ---
[facility] Test Date: 2020-11-15 Test Time: 23:06:23 Pat Name: JESUS FERRARO Department: Room: A263 1 Gender: M [employer] Operator: [id number] : [id number] Requested By: DALLIN SIDDIQUI Order Number: [id number] Reading MD: Luke Hall Measurements Intervals [place] Rate: 120 P: CA: QRS: -33 QRSD: 98 T: 175 QT: 330 QTc: 472 Interpretive Statements Rapid atrial fibrillation Left axis deviation Low voltage, precordial leads Nonspecific ST abnormality Compared to ECG 11/14/2020 00:57:53 Electronically Signed On 11-17-2020 13:43:07 EDT by Luke Hall
--- NOTE | 2020-11-17 13:54 | Progress Note ---
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 pCO2 POC ABG pO2 ABG pO2 ABG HCO3 ABG O2 Saturation ABG Base Excess ABG Hemoglobin ABG Oxyhemoglobin ABG Sodium ABG Potassium ABG Chloride ABG Glucose Oxyhemoglobin Carboxyhemoglobin Sodium Potassium Chloride Carbon Dioxide BUN Creatinine Glucose POC Glucose 130 H Lactic Acid Calcium Phosphorus Magnesium Total Creatine Kinase Troponin T Total Protein Albumin Triglycerides LDL Cholesterol Direct HDL Cholesterol Arterial Blood Glucose Arterial Blood Ionized Calcium Urine pH Urine WBC (Auto) Vancomycin Trough 21.4 H 22.0 H Salicylates Acetaminophen Crossmatch 10/30/20 10/31/20 10/31/20 Unknown 02:54 03:42 WBC 21.1 H 23.0 H RBC 2.36 L Hgb 7.3 L 11.4 L D Hct 22.7 L 34.1 L D MCV 96 H MCH MCHC RDW 17.1 H 16.2 H Plt Count 73 L 33 L Lymph % (Auto) Seg Neutrophils % Seg Neuts % (Manual) Lymphocytes % (Manual) Nucleated RBC % Seg Neutrophils # Seg Neutrophils # Man Lymphocytes # (Manual) Monocytes # (Manual) PT INR ABG pH 7.517 H POC ABG pCO2 25.7 L POC ABG pO2 52.3 L ABG pO2 ABG HCO3 ABG O2 Saturation ABG Base Excess ABG Hemoglobin ABG Oxyhemoglobin 90.8 L ABG Sodium ABG Potassium ABG Chloride 109.0 H ABG Glucose 147 H Oxyhemoglobin Carboxyhemoglobin Sodium Potassium Chloride Carbon Dioxide BUN Creatinine Glucose POC Glucose Lactic Acid Calcium Phosphorus Magnesium Total Creatine Kinase Troponin T Total Protein Albumin Triglycerides LDL Cholesterol Direct HDL Cholesterol Arterial Blood Glucose 147 H Arterial Blood Ionized Calcium 4.0 L Urine pH Urine WBC (Auto) Vancomycin Trough Salicylates Acetaminophen Crossmatch 10/31/20 10/31/20 10/31/20 04:37 04:37 05:08 WBC 21.7 H RBC Hgb Hct MCV MCH MCHC RDW 16.1 H Plt Count 39 L Lymph % (Auto) Seg Neutrophils % Seg Neuts % (Manual) Lymphocytes % (Manual) Nucleated RBC % Seg Neutrophils # Seg Neutrophils # Man Lymphocytes # (Manual) Monocytes # (Manual) PT INR ABG pH POC ABG pCO2 POC ABG pO2 ABG pO2 ABG HCO3 ABG O2 Saturation ABG Base Excess ABG Hemoglobin ABG Oxyhemoglobin ABG Sodium ABG Potassium ABG Chloride ABG Glucose Oxyhemoglobin Carboxyhemoglobin Sodium Potassium Chloride 108.4 H Carbon Dioxide BUN 25 H Creatinine 0.5 L Glucose 140 H POC Glucose 140 H Lactic Acid Calcium 6.1 L Phosphorus Magnesium 1.50 L Total Creatine Kinase Troponin T Total Protein Albumin Triglycerides LDL Cholesterol Direct HDL Cholesterol Arterial Blood Glucose Arterial Blood Ionized Calcium Urine pH Urine WBC (Auto) Vancomycin Trough Salicylates Acetaminophen Crossmatch 10/31/20 10/31/20 10/31/20 11:12 18:50 23:21 WBC RBC Hgb Hct MCV MCH MCHC RDW Plt Count Lymph % (Auto) Seg Neutrophils % Seg Neuts % (Manual) Lymphocytes % (Manual) Nucleated RBC % Seg Neutrophils # Seg Neutrophils # Man Lymphocytes # (Manual) Monocytes # (Manual) PT INR ABG pH POC ABG pCO2 POC ABG pO2 ABG pO2 ABG HCO3 ABG O2 Saturation ABG Base Excess ABG Hemoglobin ABG Oxyhemoglobin ABG Sodium ABG Potassium ABG Chloride ABG Glucose Oxyhemoglobin Carboxyhemoglobin Sodium Potassium Chloride Carbon Dioxide BUN Creatinine Glucose POC Glucose 125 H 142 H 127 H Lactic Acid Calcium Phosphorus Magnesium Total Creatine Kinase Troponin T Total Protein Albumin Triglycerides LDL Cholesterol Direct HDL Cholesterol Arterial Blood Glucose Arterial Blood Ionized Calcium Urine pH Urine WBC (Auto) Vancomycin Trough Salicylates Acetaminophen Crossmatch 10/31/20 11/01/20 11/01/20 Unknown 03:40 04:21 WBC RBC Hgb Hct MCV MCH MCHC RDW Plt Count Lymph % (Auto) Seg Neutrophils % Seg Neuts % (Manual) Lymphocytes % (Manual) Nucleated RBC % Seg Neutrophils # Seg Neutrophils # Man Lymphocytes # (Manual) Monocytes # (Manual) PT INR ABG pH 7.489 H POC ABG pCO2 POC ABG pO2 ABG pO2 77.2 L ABG HCO3 ABG O2 Saturation ABG Base Excess ABG Hemoglobin 7.1 L ABG Oxyhemoglobin ABG Sodium ABG Potassium ABG Chloride ABG Glucose Oxyhemoglobin Carboxyhemoglobin Sodium Potassium 3.1 L Chloride 107.1 H Carbon Dioxide BUN 25 H Creatinine 0.5 L Glucose 148 H POC Glucose Lactic Acid 4.30 H* Calcium 6.0 L Phosphorus Magnesium Total Creatine Kinase Troponin T Total Protein Albumin Triglycerides LDL Cholesterol Direct HDL Cholesterol Arterial Blood Glucose Arterial Blood Ionized Calcium Urine pH Urine WBC (Auto) Vancomycin Trough Salicylates Acetaminophen Crossmatch 11/01/20 11/01/20 11/01/20 05:13 11:42 17:38 WBC RBC Hgb Hct MCV MCH MCHC RDW Plt Count Lymph % (Auto) Seg Neutrophils % Seg Neuts % (Manual) Lymphocytes % (Manual) Nucleated RBC % Seg Neutrophils # Seg Neutrophils # Man Lymphocytes # (Manual) Monocytes # (Manual) PT INR ABG pH POC ABG pCO2 POC ABG pO2 ABG pO2 ABG HCO3 ABG O2 Saturation ABG Base Excess ABG Hemoglobin ABG Oxyhemoglobin ABG Sodium ABG Potassium ABG Chloride ABG Glucose Oxyhemoglobin Carboxyhemoglobin Sodium Potassium Chloride Carbon Dioxide BUN Creatinine Glucose POC Glucose 139 H 139 H 161 H Lactic Acid Calcium Phosphorus Magnesium Total Creatine Kinase Troponin T Total Protein Albumin Triglycerides LDL Cholesterol Direct HDL Cholesterol Arterial Blood Glucose Arterial Blood Ionized Calcium Urine pH Urine WBC (Auto) Vancomycin Trough Salicylates Acetaminophen Crossmatch 11/01/20 11/01/20 11/02/20 23:20 Unknown 04:30 WBC 18.2 H RBC 3.27 L Hgb 9.9 L Hct 30.1 L D MCV MCH MCHC RDW 15.7 H Plt Count 34 L Lymph % (Auto) Seg Neutrophils % Seg Neuts % (Manual) Lymphocytes % (Manual) Nucleated RBC % Seg Neutrophils # Seg Neutrophils # Man Lymphocytes # (Manual) Monocytes # (Manual) PT INR ABG pH 7.456 H POC ABG pCO2 POC ABG pO2 ABG pO2 ABG HCO3 ABG O2 Saturation ABG Base Excess ABG Hemoglobin 9.2 L ABG Oxyhemoglobin ABG Sodium ABG Potassium ABG Chloride ABG Glucose Oxyhemoglobin Carboxyhemoglobin Sodium Potassium Chloride Carbon Dioxide BUN Creatinine Glucose POC Glucose 168 H Lactic Acid Calcium Phosphorus Magnesium Total Creatine Kinase Troponin T Total Protein Albumin Triglycerides LDL Cholesterol Direct HDL Cholesterol Arterial Blood Glucose Arterial Blood Ionized Calcium Urine pH Urine WBC (Auto) Vancomycin Trough Salicylates Acetaminophen Crossmatch 11/02/20 11/02/20 11/02/20 06:29 08:40 08:40 WBC 16.6 H RBC 2.87 L Hgb 8.8 L Hct 26.6 L MCV MCH MCHC RDW 15.8 H Plt Count 30 L Lymph % (Auto) Seg Neutrophils % Seg Neuts % (Manual) 97.0 H Lymphocytes % (Manual) 2.0 L Nucleated RBC % 1.0 H Seg Neutrophils # Seg Neutrophils # Man 16.1 H Lymphocytes # (Manual) 0.3 L Monocytes # (Manual) PT INR ABG pH POC ABG pCO2 POC ABG pO2 ABG pO2 ABG HCO3 ABG O2 Saturation ABG Base Excess ABG Hemoglobin ABG Oxyhemoglobin ABG Sodium ABG Potassium ABG Chloride ABG Glucose Oxyhemoglobin Carboxyhemoglobin Sodium Potassium 2.4 L* D Chloride 110.2 H Carbon Dioxide BUN 23 H Creatinine 0.4 L Glucose 154 H POC Glucose 131 H Lactic Acid Calcium 6.1 L Phosphorus Magnesium 1.50 L Total Creatine Kinase Troponin T Total Protein Albumin Triglycerides LDL Cholesterol Direct HDL Cholesterol Arterial Blood Glucose Arterial Blood Ionized Calcium Urine pH Urine WBC (Auto) Vancomycin Trough Salicylates Acetaminophen Crossmatch 11/02/20 11/02/20 11/02/20 13:17 17:25 18:05 WBC RBC Hgb Hct MCV MCH MCHC RDW Plt Count Lymph % (Auto) Seg Neutrophils % Seg Neuts % (Manual) Lymphocytes % (Manual) Nucleated RBC % Seg Neutrophils # Seg Neutrophils # Man Lymphocytes # (Manual) Monocytes # (Manual) PT INR ABG pH POC ABG pCO2 POC ABG pO2 ABG pO2 ABG HCO3 ABG O2 Saturation ABG Base Excess ABG Hemoglobin ABG Oxyhemoglobin ABG Sodium ABG Potassium ABG Chloride ABG Glucose Oxyhemoglobin Carboxyhemoglobin Sodium Potassium 3.1 L D Chloride Carbon Dioxide BUN Creatinine Glucose POC Glucose 134 H 140 H Lactic Acid Calcium Phosphorus Magnesium Total Creatine Kinase Troponin T Total Protein Albumin Triglycerides LDL Cholesterol Direct HDL Cholesterol Arterial Blood Glucose Arterial Blood Ionized Calcium Urine pH Urine WBC (Auto) Vancomycin Trough Salicylates Acetaminophen Crossmatch 11/02/20 11/03/20 11/03/20 23:36 04:15 05:07 WBC RBC Hgb Hct MCV MCH MCHC RDW Plt Count Lymph % (Auto) Seg Neutrophils % Seg Neuts % (Manual) Lymphocytes % (Manual) Nucleated RBC % Seg Neutrophils # Seg Neutrophils # Man Lymphocytes # (Manual) Monocytes # (Manual) PT INR ABG pH POC ABG pCO2 POC ABG pO2 ABG pO2 ABG HCO3 ABG O2 Saturation ABG Base Excess ABG Hemoglobin ABG Oxyhemoglobin ABG Sodium ABG Potassium ABG Chloride ABG Glucose Oxyhemoglobin Carboxyhemoglobin Sodium Potassium 3.0 L Chloride 111.8 H Carbon Dioxide BUN 24 H Creatinine 0.3 L Glucose 141 H POC Glucose 127 H 156 H Lactic Acid Calcium 5.8 L* Phosphorus Magnesium 1.60 L Total Creatine Kinase Troponin T Total Protein Albumin Triglycerides LDL Cholesterol Direct HDL Cholesterol Arterial Blood Glucose Arterial Blood Ionized Calcium Urine pH Urine WBC (Auto) Vancomycin Trough Salicylates Acetaminophen Crossmatch 11/03/20 11/03/20 11/04/20 11:14 17:31 00:17 WBC RBC Hgb Hct MCV MCH MCHC RDW Plt Count Lymph % (Auto) Seg Neutrophils % Seg Neuts % (Manual) Lymphocytes % (Manual) Nucleated RBC % Seg Neutrophils # Seg Neutrophils # Man Lymphocytes # (Manual) Monocytes # (Manual) PT INR ABG pH POC ABG pCO2 POC ABG pO2 ABG pO2 ABG HCO3 ABG O2 Saturation ABG Base Excess ABG Hemoglobin ABG Oxyhemoglobin ABG Sodium ABG Potassium ABG Chloride ABG Glucose Oxyhemoglobin Carboxyhemoglobin Sodium Potassium Chloride Carbon Dioxide BUN Creatinine Glucose POC Glucose 137 H 151 H 156 H Lactic Acid Calcium Phosphorus Magnesium Total Creatine Kinase Troponin T Total Protein Albumin Triglycerides LDL Cholesterol Direct HDL Cholesterol Arterial Blood Glucose Arterial Blood Ionized Calcium Urine pH Urine WBC (Auto) Vancomycin Trough Salicylates Acetaminophen Crossmatch 11/04/20 11/04/20 11/04/20 05:34 05:34 11:16 WBC 21.9 H RBC 2.67 L Hgb 8.2 L Hct 24.8 L MCV MCH MCHC RDW 15.6 H Plt Count 48 L Lymph % (Auto) Seg Neutrophils % Seg Neuts % (Manual) Lymphocytes % (Manual) Nucleated RBC % Seg Neutrophils # Seg Neutrophils # Man Lymphocytes # (Manual) Monocytes # (Manual) PT INR ABG pH POC ABG pCO2 POC ABG pO2 ABG pO2 ABG HCO3 ABG O2 Saturation ABG Base Excess ABG Hemoglobin ABG Oxyhemoglobin ABG Sodium ABG Potassium ABG Chloride ABG Glucose Oxyhemoglobin Carboxyhemoglobin Sodium 146 H Potassium Chloride 114.6 H Carbon Dioxide BUN 29 H Creatinine 0.3 L Glucose 173 H POC Glucose 156 H Lactic Acid Calcium 5.7 L* Phosphorus Magnesium Total Creatine Kinase Troponin T Total Protein Albumin Triglycerides LDL Cholesterol Direct HDL Cholesterol Arterial Blood Glucose Arterial Blood Ionized Calcium Urine pH Urine WBC (Auto) Vancomycin Trough Salicylates Acetaminophen Crossmatch 11/04/20 11/04/20 11/04/20 11:42 17:18 23:12 WBC RBC Hgb Hct MCV MCH MCHC RDW Plt Count Lymph % (Auto) Seg Neutrophils % Seg Neuts % (Manual) Lymphocytes % (Manual) Nucleated RBC % Seg Neutrophils # Seg Neutrophils # Man Lymphocytes # (Manual) Monocytes # (Manual) PT INR ABG pH 7.525 H POC ABG pCO2 28.9 L POC ABG pO2 64.3 L ABG pO2 ABG HCO3 ABG O2 Saturation ABG Base Excess ABG Hemoglobin 8.2 L ABG Oxyhemoglobin ABG Sodium ABG Potassium 3.3 L ABG Chloride 115.0 H ABG Glucose 165 H Oxyhemoglobin Carboxyhemoglobin Sodium Potassium Chloride Carbon Dioxide BUN Creatinine Glucose POC Glucose 144 H 155 H Lactic Acid Calcium Phosphorus Magnesium Total Creatine Kinase Troponin T Total Protein Albumin Triglycerides LDL Cholesterol Direct HDL Cholesterol Arterial Blood Glucose 165 H Arterial Blood Ionized Calcium 4.0 L Urine pH Urine WBC (Auto) Vancomycin Trough Salicylates Acetaminophen Crossmatch 11/05/20 11/05/20 11/05/20 04:48 04:48 05:57 WBC 17.4 H RBC 2.49 L Hgb 7.8 L Hct 23.5 L MCV MCH MCHC RDW 16.0 H Plt Count 69 L Lymph % (Auto) Seg Neutrophils % Seg Neuts % (Manual) Lymphocytes % (Manual) Nucleated RBC % Seg Neutrophils # Seg Neutrophils # Man Lymphocytes # (Manual) Monocytes # (Manual) PT INR ABG pH POC ABG pCO2 POC ABG pO2 ABG pO2 ABG HCO3 ABG O2 Saturation ABG Base Excess ABG Hemoglobin ABG Oxyhemoglobin ABG Sodium ABG Potassium ABG Chloride ABG Glucose Oxyhemoglobin Carboxyhemoglobin Sodium 147 H Potassium 3.5 L Chloride 115.4 H Carbon Dioxide BUN 34 H Creatinine 0.3 L Glucose 154 H POC Glucose 146 H Lactic Acid Calcium 6.1 L Phosphorus 2.00 L Magnesium Total Creatine Kinase Troponin T Total Protein Albumin Triglycerides LDL Cholesterol Direct HDL Cholesterol Arterial Blood Glucose Arterial Blood Ionized Calcium Urine pH Urine WBC (Auto) Vancomycin Trough Salicylates Acetaminophen Crossmatch 11/05/20 11/05/20 11/05/20 11:33 17:52 23:37 WBC RBC Hgb Hct MCV MCH MCHC RDW Plt Count Lymph % (Auto) Seg Neutrophils % Seg Neuts % (Manual) Lymphocytes % (Manual) Nucleated RBC % Seg Neutrophils # Seg Neutrophils # Man Lymphocytes # (Manual) Monocytes # (Manual) PT INR ABG pH POC ABG pCO2 POC ABG pO2 ABG pO2 ABG HCO3 ABG O2 Saturation ABG Base Excess ABG Hemoglobin ABG Oxyhemoglobin ABG Sodium ABG Potassium ABG Chloride ABG Glucose Oxyhemoglobin Carboxyhemoglobin Sodium Potassium Chloride Carbon Dioxide BUN Creatinine Glucose POC Glucose 144 H 136 H 151 H Lactic Acid Calcium Phosphorus Magnesium Total Creatine Kinase Troponin T Total Protein Albumin Triglycerides LDL Cholesterol Direct HDL Cholesterol Arterial Blood Glucose Arterial Blood Ionized Calcium Urine pH Urine WBC (Auto) Vancomycin Trough Salicylates Acetaminophen Crossmatch 11/06/20 11/06/20 11/06/20 05:36 06:45 06:45 WBC 15.0 H RBC 2.33 L Hgb 7.2 L Hct 22.1 L MCV 95 H MCH MCHC RDW 16.2 H Plt Count 103 L Lymph % (Auto) Seg Neutrophils % Seg Neuts % (Manual) Lymphocytes % (Manual) Nucleated RBC % Seg Neutrophils # Seg Neutrophils # Man Lymphocytes # (Manual) Monocytes # (Manual) PT INR ABG pH POC ABG pCO2 POC ABG pO2 ABG pO2 ABG HCO3 ABG O2 Saturation ABG Base Excess ABG Hemoglobin ABG Oxyhemoglobin ABG Sodium ABG Potassium ABG Chloride ABG Glucose Oxyhemoglobin Carboxyhemoglobin Sodium 148 H Potassium Chloride 118.2 H Carbon Dioxide BUN 32 H Creatinine 0.4 L Glucose 153 H POC Glucose 140 H Lactic Acid Calcium 6.4 L Phosphorus 0.90 L* D Magnesium Total Creatine Kinase Troponin T Total Protein 5.0 L Albumin 1.4 L Triglycerides LDL Cholesterol Direct HDL Cholesterol Arterial Blood Glucose Arterial Blood Ionized Calcium Urine pH Urine WBC (Auto) Vancomycin Trough Salicylates Acetaminophen Crossmatch 11/06/20 11/06/20 11/06/20 11:32 17:37 23:19 WBC RBC Hgb Hct MCV MCH MCHC RDW Plt Count Lymph % (Auto) Seg Neutrophils % Seg Neuts % (Manual) Lymphocytes % (Manual) Nucleated RBC % Seg Neutrophils # Seg Neutrophils # Man Lymphocytes # (Manual) Monocytes # (Manual) PT INR ABG pH POC ABG pCO2 POC ABG pO2 ABG pO2 ABG HCO3 ABG O2 Saturation ABG Base Excess ABG Hemoglobin ABG Oxyhemoglobin ABG Sodium ABG Potassium ABG Chloride ABG Glucose Oxyhemoglobin Carboxyhemoglobin Sodium Potassium Chloride Carbon Dioxide BUN Creatinine Glucose POC Glucose 132 H 133 H 145 H Lactic Acid Calcium Phosphorus Magnesium Total Creatine Kinase Troponin T Total Protein Albumin Triglycerides LDL Cholesterol Direct HDL Cholesterol Arterial Blood Glucose Arterial Blood Ionized Calcium Urine pH Urine WBC (Auto) Vancomycin Trough Salicylates Acetaminophen Crossmatch 11/07/20 11/07/20 11/07/20 12:55 16:45 16:45 WBC 12.0 H RBC 3.63 L Hgb 11.4 L D Hct MCV 104 H MCH MCHC 30 L RDW 18.0 H Plt Count 133 L Lymph % (Auto) Seg Neutrophils % Seg Neuts % (Manual) Lymphocytes % (Manual) Nucleated RBC % Seg Neutrophils # Seg Neutrophils # Man Lymphocytes # (Manual) Monocytes # (Manual) PT INR ABG pH POC ABG pCO2 POC ABG pO2 ABG pO2 ABG HCO3 ABG O2 Saturation ABG Base Excess ABG Hemoglobin 7.7 L ABG Oxyhemoglobin ABG Sodium ABG Potassium ABG Chloride ABG Glucose Oxyhemoglobin 94.9 L Carboxyhemoglobin Sodium 149 H Potassium Chloride 119.8 H Carbon Dioxide BUN 31 H Creatinine 0.4 L Glucose 130 H POC Glucose Lactic Acid Calcium 6.5 L Phosphorus Magnesium Total Creatine Kinase Troponin T Total Protein Albumin Triglycerides LDL Cholesterol Direct HDL Cholesterol Arterial Blood Glucose Arterial Blood Ionized Calcium Urine pH Urine WBC (Auto) Vancomycin Trough Salicylates Acetaminophen Crossmatch 11/07/20 11/08/20 11/08/20 17:23 00:12 06:11 WBC RBC Hgb Hct MCV MCH MCHC RDW Plt Count Lymph % (Auto) Seg Neutrophils % Seg Neuts % (Manual) Lymphocytes % (Manual) Nucleated RBC % Seg Neutrophils # Seg Neutrophils # Man Lymphocytes # (Manual) Monocytes # (Manual) PT INR ABG pH POC ABG pCO2 POC ABG pO2 ABG pO2 ABG HCO3 ABG O2 Saturation ABG Base Excess ABG Hemoglobin ABG Oxyhemoglobin ABG Sodium ABG Potassium ABG Chloride ABG Glucose Oxyhemoglobin Carboxyhemoglobin Sodium Potassium Chloride Carbon Dioxide BUN Creatinine Glucose POC Glucose 115 H 129 H 109 H Lactic Acid Calcium Phosphorus Magnesium Total Creatine Kinase Troponin T Total Protein Albumin Triglycerides LDL Cholesterol Direct HDL Cholesterol Arterial Blood Glucose Arterial Blood Ionized Calcium Urine pH Urine WBC (Auto) Vancomycin Trough Salicylates Acetaminophen Crossmatch 11/08/20 11/08/20 11/08/20 17:36 23:49 23:58 WBC RBC Hgb Hct MCV MCH MCHC RDW Plt Count Lymph % (Auto) Seg Neutrophils % Seg Neuts % (Manual) Lymphocytes % (Manual) Nucleated RBC % Seg Neutrophils # Seg Neutrophils # Man Lymphocytes # (Manual) Monocytes # (Manual) PT INR ABG pH POC ABG pCO2 POC ABG pO2 ABG pO2 ABG HCO3 ABG O2 Saturation ABG Base Excess ABG Hemoglobin ABG Oxyhemoglobin ABG Sodium ABG Potassium ABG Chloride ABG Glucose Oxyhemoglobin Carboxyhemoglobin Sodium Potassium Chloride Carbon Dioxide BUN Creatinine Glucose 138 H POC Glucose 38 L 36 L Lactic Acid Calcium Phosphorus Magnesium Total Creatine Kinase Troponin T Total Protein Albumin Triglycerides LDL Cholesterol Direct HDL Cholesterol Arterial Blood Glucose Arterial Blood Ionized Calcium Urine pH Urine WBC (Auto) Vancomycin Trough Salicylates Acetaminophen Crossmatch 11/09/20 11/09/20 11/09/20 05:33 06:00 06:00 WBC 13.1 H RBC 2.35 L Hgb 7.6 L D Hct 22.9 L D MCV 97 H MCH MCHC RDW 16.8 H Plt Count Lymph % (Auto) 9.1 L Seg Neutrophils % 84.8 H Seg Neuts % (Manual) Lymphocytes % (Manual) Nucleated RBC % Seg Neutrophils # 11.1 H Seg Neutrophils # Man Lymphocytes # (Manual) Monocytes # (Manual) PT INR ABG pH POC ABG pCO2 POC ABG pO2 ABG pO2 ABG HCO3 ABG O2 Saturation ABG Base Excess ABG Hemoglobin ABG Oxyhemoglobin ABG Sodium ABG Potassium ABG Chloride ABG Glucose Oxyhemoglobin Carboxyhemoglobin Sodium 150 H Potassium 3.4 L D Chloride 119.2 H Carbon Dioxide BUN 30 H Creatinine 0.4 L Glucose 137 H POC Glucose 58 L Lactic Acid Calcium 7.2 L Phosphorus Magnesium Total Creatine Kinase Troponin T Total Protein Albumin Triglycerides LDL Cholesterol Direct HDL Cholesterol Arterial Blood Glucose Arterial Blood Ionized Calcium Urine pH Urine WBC (Auto) Vancomycin Trough Salicylates Acetaminophen Crossmatch 11/09/20 11/09/20 11/10/20 06:08 22:16 13:46 WBC 16.1 H RBC 2.52 L Hgb 8.1 L Hct 25.2 L MCV 100 H MCH MCHC RDW 18.2 H Plt Count Lymph % (Auto) Seg Neutrophils % Seg Neuts % (Manual) 90.0 H Lymphocytes % (Manual) 3.0 L Nucleated RBC % Seg Neutrophils # Seg Neutrophils # Man 14.5 H Lymphocytes # (Manual) 0.5 L Monocytes # (Manual) 1.1 H PT INR ABG pH POC ABG pCO2 POC ABG pO2 ABG pO2 ABG HCO3 ABG O2 Saturation ABG Base Excess ABG Hemoglobin ABG Oxyhemoglobin ABG Sodium ABG Potassium ABG Chloride ABG Glucose Oxyhemoglobin Carboxyhemoglobin Sodium Potassium Chloride Carbon Dioxide BUN Creatinine Glucose POC Glucose 122 H 120 H Lactic Acid Calcium Phosphorus Magnesium Total Creatine Kinase Troponin T Total Protein Albumin Triglycerides LDL Cholesterol Direct HDL Cholesterol Arterial Blood Glucose Arterial Blood Ionized Calcium Urine pH Urine WBC (Auto) Vancomycin Trough Salicylates Acetaminophen Crossmatch 0411/10/20 11/11/20 13:46 15:59 11:43 WBC RBC Hgb Hct MCV MCH MCHC RDW Plt Count Lymph % (Auto) Seg Neutrophils % Seg Neuts % (Manual) Lymphocytes % (Manual) Nucleated RBC % Seg Neutrophils # Seg Neutrophils # Man Lymphocytes # (Manual) Monocytes # (Manual) PT INR ABG pH POC ABG pCO2 POC ABG pO2 ABG pO2 ABG HCO3 ABG O2 Saturation ABG Base Excess ABG Hemoglobin ABG Oxyhemoglobin ABG Sodium ABG Potassium ABG Chloride ABG Glucose Oxyhemoglobin Carboxyhemoglobin Sodium 153 H Potassium Chloride 120.6 H Carbon Dioxide BUN 27 H Creatinine 0.3 L Glucose 112 H POC Glucose 40 L 124 H Lactic Acid Calcium 6.8 L Phosphorus Magnesium Total Creatine Kinase Troponin T Total Protein Albumin Triglycerides LDL Cholesterol Direct HDL Cholesterol Arterial Blood Glucose Arterial Blood Ionized Calcium Urine pH Urine WBC (Auto) Vancomycin Trough Salicylates Acetaminophen Crossmatch 11/11/20 11/11/20 11/11/20 14:38 14:38 14:38 WBC 13.8 H RBC 2.43 L Hgb 7.6 L Hct 24.0 L MCV 99 H MCH MCHC RDW 18.0 H Plt Count Lymph % (Auto) Seg Neutrophils % Seg Neuts % (Manual) Lymphocytes % (Manual) Nucleated RBC % Seg Neutrophils # Seg Neutrophils # Man Lymphocytes # (Manual) Monocytes # (Manual) PT 15.0 H INR 1.18 H ABG pH POC ABG pCO2 POC ABG pO2 ABG pO2 ABG HCO3 ABG O2 Saturation ABG Base Excess ABG Hemoglobin ABG Oxyhemoglobin ABG Sodium ABG Potassium ABG Chloride ABG Glucose Oxyhemoglobin Carboxyhemoglobin Sodium 154 H Potassium 3.1 L D Chloride 122.1 H Carbon Dioxide BUN 26 H Creatinine 0.4 L Glucose 140 H POC Glucose Lactic Acid Calcium 7.3 L Phosphorus Magnesium Total Creatine Kinase Troponin T Total Protein Albumin Triglycerides LDL Cholesterol Direct HDL Cholesterol Arterial Blood Glucose Arterial Blood Ionized Calcium Urine pH Urine WBC (Auto) Vancomycin Trough Salicylates Acetaminophen Crossmatch 11/11/20 11/11/20 11/12/20 18:39 18:42 00:03 WBC RBC Hgb Hct MCV MCH MCHC RDW Plt Count Lymph % (Auto) Seg Neutrophils % Seg Neuts % (Manual) Lymphocytes % (Manual) Nucleated RBC % Seg Neutrophils # Seg Neutrophils # Man Lymphocytes # (Manual) Monocytes # (Manual) PT INR ABG pH POC ABG pCO2 POC ABG pO2 ABG pO2 ABG HCO3 ABG O2 Saturation ABG Base Excess ABG Hemoglobin ABG Oxyhemoglobin ABG Sodium ABG Potassium ABG Chloride ABG Glucose Oxyhemoglobin Carboxyhemoglobin Sodium Potassium Chloride Carbon Dioxide BUN Creatinine Glucose POC Glucose 45 L 66 L 108 H Lactic Acid Calcium Phosphorus Magnesium Total Creatine Kinase Troponin T Total Protein Albumin Triglycerides LDL Cholesterol Direct HDL Cholesterol Arterial Blood Glucose Arterial Blood Ionized Calcium Urine pH Urine WBC (Auto) Vancomycin Trough Salicylates Acetaminophen Crossmatch 11/12/20 11/12/20 11/12/20 05:44 08:33 08:33 WBC 13.4 H RBC 2.35 L Hgb 7.5 L Hct 23.7 L MCV 101 H MCH MCHC RDW 19.7 H Plt Count Lymph % (Auto) Seg Neutrophils % Seg Neuts % (Manual) Lymphocytes % (Manual) Nucleated RBC % Seg Neutrophils # Seg Neutrophils # Man Lymphocytes # (Manual) Monocytes # (Manual) PT INR ABG pH POC ABG pCO2 POC ABG pO2 ABG pO2 ABG HCO3 ABG O2 Saturation ABG Base Excess ABG Hemoglobin ABG Oxyhemoglobin ABG Sodium ABG Potassium ABG Chloride ABG Glucose Oxyhemoglobin Carboxyhemoglobin Sodium 154 H Potassium 2.9 L* Chloride 121.4 H Carbon Dioxide BUN 26 H Creatinine 0.4 L Glucose 153 H POC Glucose 114 H Lactic Acid Calcium 7.3 L Phosphorus Magnesium Total Creatine Kinase Troponin T Total Protein Albumin Triglycerides LDL Cholesterol Direct HDL Cholesterol Arterial Blood Glucose Arterial Blood Ionized Calcium Urine pH Urine WBC (Auto) Vancomycin Trough Salicylates Acetaminophen Crossmatch 11/12/20 11/12/20 11/13/20 11:38 17:17 05:28 WBC RBC Hgb Hct MCV MCH MCHC RDW Plt Count Lymph % (Auto) Seg Neutrophils % Seg Neuts % (Manual) Lymphocytes % (Manual) Nucleated RBC % Seg Neutrophils # Seg Neutrophils # Man Lymphocytes # (Manual) Monocytes # (Manual) PT INR ABG pH POC ABG pCO2 51.4 H POC ABG pO2 41.7 L ABG pO2 ABG HCO3 ABG O2 Saturation ABG Base Excess ABG Hemoglobin 9.1 L ABG Oxyhemoglobin 72.2 L ABG Sodium 151.1 H ABG Potassium 3.2 L ABG Chloride 122.0 H ABG Glucose 191 H Oxyhemoglobin Carboxyhemoglobin Sodium Potassium Chloride Carbon Dioxide BUN Creatinine Glucose POC Glucose 125 H 127 H Lactic Acid Calcium Phosphorus Magnesium Total Creatine Kinase Troponin T Total Protein Albumin Triglycerides LDL Cholesterol Direct HDL Cholesterol Arterial Blood Glucose 191 H Arterial Blood Ionized Calcium Urine pH Urine WBC (Auto) Vancomycin Trough Salicylates Acetaminophen Crossmatch 11/13/20 11/13/20 11/13/20 10:46 23:15 23:15 WBC 12.2 H RBC 2.41 L Hgb 7.7 L Hct 24.5 L MCV 102 H MCH MCHC RDW 23.0 H Plt Count Lymph % (Auto) Seg Neutrophils % Seg Neuts % (Manual) Lymphocytes % (Manual) Nucleated RBC % Seg Neutrophils # Seg Neutrophils # Man Lymphocytes # (Manual) Monocytes # (Manual) PT INR ABG pH POC ABG pCO2 POC ABG pO2 ABG pO2 ABG HCO3 ABG O2 Saturation ABG Base Excess ABG Hemoglobin ABG Oxyhemoglobin ABG Sodium ABG Potassium ABG Chloride ABG Glucose Oxyhemoglobin Carboxyhemoglobin Sodium Potassium Chloride Carbon Dioxide BUN Creatinine Glucose POC Glucose 153 H Lactic Acid Calcium Phosphorus Magnesium Total Creatine Kinase Troponin T 0.123 H* Total Protein Albumin Triglycerides LDL Cholesterol Direct HDL Cholesterol Arterial Blood Glucose Arterial Blood Ionized Calcium Urine pH Urine WBC (Auto) Vancomycin Trough Salicylates Acetaminophen Crossmatch 11/13/20 11/13/20 11/14/20 23:15 Unknown 05:26 WBC RBC Hgb Hct MCV MCH MCHC RDW Plt Count Lymph % (Auto) Seg Neutrophils % Seg Neuts % (Manual) Lymphocytes % (Manual) Nucleated RBC % Seg Neutrophils # Seg Neutrophils # Man Lymphocytes # (Manual) Monocytes # (Manual) PT INR ABG pH 7.295 L POC ABG pCO2 56.0 H POC ABG pO2 49.1 L ABG pO2 ABG HCO3 ABG O2 Saturation ABG Base Excess ABG Hemoglobin 8.3 L ABG Oxyhemoglobin 77.1 L ABG Sodium 150.5 H ABG Potassium 3.3 L ABG Chloride 121.0 H ABG Glucose 187 H Oxyhemoglobin Carboxyhemoglobin Sodium 152 H Potassium 3.3 L Chloride 117.8 H Carbon Dioxide BUN 25 H Creatinine 0.4 L Glucose 123 H POC Glucose 46 L Lactic Acid Calcium 7.5 L Phosphorus Magnesium Total Creatine Kinase Troponin T Total Protein Albumin Triglycerides LDL Cholesterol Direct HDL Cholesterol Arterial Blood Glucose 187 H Arterial Blood Ionized Calcium Urine pH Urine WBC (Auto) Vancomycin Trough Salicylates Acetaminophen Crossmatch 11/14/20 11/14/20 11/14/20 06:26 22:26 22:26 WBC RBC 2.75 L Hgb 9.0 L Hct 27.8 L MCV 101 H MCH 33 H MCHC RDW 22.8 H Plt Count Lymph % (Auto) Seg Neutrophils % Seg Neuts % (Manual) Lymphocytes % (Manual) Nucleated RBC % Seg Neutrophils # Seg Neutrophils # Man Lymphocytes # (Manual) Monocytes # (Manual) PT INR ABG pH POC ABG pCO2 POC ABG pO2 ABG pO2 ABG HCO3 ABG O2 Saturation ABG Base Excess ABG Hemoglobin ABG Oxyhemoglobin ABG Sodium ABG Potassium ABG Chloride ABG Glucose Oxyhemoglobin Carboxyhemoglobin Sodium 147 H Potassium 3.3 L Chloride 114.3 H Carbon Dioxide BUN 23 H Creatinine 0.3 L Glucose 209 H POC Glucose 135 H Lactic Acid Calcium 7.4 L Phosphorus Magnesium Total Creatine Kinase Troponin T Total Protein Albumin Triglycerides LDL Cholesterol Direct HDL Cholesterol Arterial Blood Glucose Arterial Blood Ionized Calcium Urine pH Urine WBC (Auto) Vancomycin Trough Salicylates Acetaminophen Crossmatch 11/14/20 11/15/20 11/15/20 23:22 04:28 05:57 WBC RBC Hgb Hct MCV MCH MCHC RDW Plt Count Lymph % (Auto) Seg Neutrophils % Seg Neuts % (Manual) Lymphocytes % (Manual) Nucleated RBC % Seg Neutrophils # Seg Neutrophils # Man Lymphocytes # (Manual) Monocytes # (Manual) PT INR ABG pH POC ABG pCO2 POC ABG pO2 ABG pO2 ABG HCO3 ABG O2 Saturation ABG Base Excess ABG Hemoglobin ABG Oxyhemoglobin ABG Sodium ABG Potassium ABG Chloride ABG Glucose Oxyhemoglobin Carboxyhemoglobin Sodium 152 H Potassium Chloride 118.1 H Carbon Dioxide BUN 22 H Creatinine 0.3 L Glucose 190 H POC Glucose 136 H 151 H Lactic Acid Calcium 7.5 L Phosphorus Magnesium Total Creatine Kinase Troponin T Total Protein Albumin Triglycerides LDL Cholesterol Direct HDL Cholesterol Arterial Blood Glucose Arterial Blood Ionized Calcium Urine pH Urine WBC (Auto) Vancomycin Trough Salicylates Acetaminophen Crossmatch 11/15/20 11/15/20 11/15/20 11:40 16:56 21:53 WBC RBC Hgb Hct MCV MCH MCHC RDW Plt Count Lymph % (Auto) Seg Neutrophils % Seg Neuts % (Manual) Lymphocytes % (Manual) Nucleated RBC % Seg Neutrophils # Seg Neutrophils # Man Lymphocytes # (Manual) Monocytes # (Manual) PT INR ABG pH 7.457 H POC ABG pCO2 POC ABG pO2 ABG pO2 48.3 L ABG HCO3 26.1 H ABG O2 Saturation 82.9 L ABG Base Excess ABG Hemoglobin 9.7 L ABG Oxyhemoglobin ABG Sodium ABG Potassium ABG Chloride ABG Glucose Oxyhemoglobin 81.0 L Carboxyhemoglobin Sodium Potassium Chloride Carbon Dioxide BUN Creatinine Glucose POC Glucose 129 H 115 H Lactic Acid Calcium Phosphorus Magnesium Total Creatine Kinase Troponin T Total Protein Albumin Triglycerides LDL Cholesterol Direct HDL Cholesterol Arterial Blood Glucose Arterial Blood Ionized Calcium Urine pH Urine WBC (Auto) Vancomycin Trough Salicylates Acetaminophen Crossmatch 11/15/20 11/16/20 11/16/20 23:12 00:07 00:09 WBC RBC Hgb Hct MCV MCH MCHC RDW Plt Count Lymph % (Auto) Seg Neutrophils % Seg Neuts % (Manual) Lymphocytes % (Manual) Nucleated RBC % Seg Neutrophils # Seg Neutrophils # Man Lymphocytes # (Manual) Monocytes # (Manual) PT INR ABG pH POC ABG pCO2 POC ABG pO2 ABG pO2 95.1 H ABG HCO3 26.6 H ABG O2 Saturation ABG Base Excess ABG Hemoglobin 7.5 L ABG Oxyhemoglobin ABG Sodium ABG Potassium ABG Chloride ABG Glucose Oxyhemoglobin Carboxyhemoglobin Sodium Potassium Chloride Carbon Dioxide BUN Creatinine Glucose POC Glucose 13 L 153 H Lactic Acid Calcium Phosphorus Magnesium Total Creatine Kinase Troponin T Total Protein Albumin Triglycerides LDL Cholesterol Direct HDL Cholesterol Arterial Blood Glucose Arterial Blood Ionized Calcium Urine pH Urine WBC (Auto) Vancomycin Trough Salicylates Acetaminophen Crossmatch 11/16/20 11/16/20 11/16/20 03:43 04:00 04:00 WBC RBC 2.33 L Hgb 7.7 L Hct 24.5 L MCV 105 H MCH 33 H MCHC 31 L RDW 22.9 H Plt Count Lymph % (Auto) Seg Neutrophils % Seg Neuts % (Manual) Lymphocytes % (Manual) Nucleated RBC % Seg Neutrophils # Seg Neutrophils # Man Lymphocytes # (Manual) Monocytes # (Manual) PT INR ABG pH 7.348 L POC ABG pCO2 POC ABG pO2 ABG pO2 91.6 H ABG HCO3 26.3 H ABG O2 Saturation ABG Base Excess ABG Hemoglobin 7.3 L ABG Oxyhemoglobin ABG Sodium ABG Potassium ABG Chloride ABG Glucose Oxyhemoglobin Carboxyhemoglobin Sodium 148 H Potassium 3.5 L Chloride 115.9 H Carbon Dioxide BUN Creatinine 0.4 L Glucose 195 H POC Glucose Lactic Acid Calcium 7.6 L Phosphorus Magnesium Total Creatine Kinase Troponin T Total Protein Albumin Triglycerides LDL Cholesterol Direct HDL Cholesterol Arterial Blood Glucose Arterial Blood Ionized Calcium Urine pH Urine WBC (Auto) Vancomycin Trough Salicylates Acetaminophen Crossmatch 11/16/20 11/16/20 11/16/20 05:16 07:40 12:10 WBC RBC Hgb Hct MCV MCH MCHC RDW Plt Count Lymph % (Auto) Seg Neutrophils % Seg Neuts % (Manual) Lymphocytes % (Manual) Nucleated RBC % Seg Neutrophils # Seg Neutrophils # Man Lymphocytes # (Manual) Monocytes # (Manual) PT INR ABG pH POC ABG pCO2 POC ABG pO2 ABG pO2 ABG HCO3 ABG O2 Saturation ABG Base Excess ABG Hemoglobin ABG Oxyhemoglobin ABG Sodium ABG Potassium ABG Chloride ABG Glucose Oxyhemoglobin Carboxyhemoglobin Sodium Potassium Chloride Carbon Dioxide BUN Creatinine Glucose POC Glucose 61 L 122 H 140 H Lactic Acid Calcium Phosphorus Magnesium Total Creatine Kinase Troponin T Total Protein Albumin Triglycerides LDL Cholesterol Direct HDL Cholesterol Arterial Blood Glucose Arterial Blood Ionized Calcium Urine pH Urine WBC (Auto) Vancomycin Trough Salicylates Acetaminophen Crossmatch 11/16/20 11/16/20 11/17/20 17:14 23:40 04:30 WBC RBC Hgb Hct MCV MCH MCHC RDW Plt Count Lymph % (Auto) Seg Neutrophils % Seg Neuts % (Manual) Lymphocytes % (Manual) Nucleated RBC % Seg Neutrophils # Seg Neutrophils # Man Lymphocytes # (Manual) Monocytes # (Manual) PT INR ABG pH 7.470 H POC ABG pCO2 POC ABG pO2 75.4 L ABG pO2 ABG HCO3 ABG O2 Saturation ABG Base Excess ABG Hemoglobin 7 L ABG Oxyhemoglobin ABG Sodium ABG Potassium ABG Chloride 116.0 H ABG Glucose 161 H Oxyhemoglobin Carboxyhemoglobin Sodium Potassium Chloride Carbon Dioxide BUN Creatinine Glucose POC Glucose 139 H 151 H Lactic Acid Calcium Phosphorus Magnesium Total Creatine Kinase Troponin T Total Protein Albumin Triglycerides LDL Cholesterol Direct HDL Cholesterol Arterial Blood Glucose 161 H Arterial Blood Ionized Calcium Urine pH Urine WBC (Auto) Vancomycin Trough Salicylates Acetaminophen Crossmatch 11/17/20 11/17/20 11/17/20 09:50 09:50 11:10 WBC RBC 2.02 L Hgb 6.6 L Hct 20.2 L MCV 100 H MCH 33 H MCHC RDW 22.4 H Plt Count Lymph % (Auto) Seg Neutrophils % Seg Neuts % (Manual) Lymphocytes % (Manual) Nucleated RBC % Seg Neutrophils # Seg Neutrophils # Man Lymphocytes # (Manual) Monocytes # (Manual) PT INR ABG pH POC ABG pCO2 POC ABG pO2 ABG pO2 ABG HCO3 ABG O2 Saturation ABG Base Excess ABG Hemoglobin ABG Oxyhemoglobin ABG Sodium ABG Potassium ABG Chloride ABG Glucose Oxyhemoglobin Carboxyhemoglobin Sodium Potassium Chloride 111.8 H Carbon Dioxide BUN 23 H Creatinine 0.4 L Glucose 142 H POC Glucose Lactic Acid Calcium 7.3 L Phosphorus Magnesium Total Creatine Kinase Troponin T Total Protein Albumin Triglycerides LDL Cholesterol Direct HDL Cholesterol Arterial Blood Glucose Arterial Blood Ionized Calcium Urine pH Urine WBC (Auto) Vancomycin Trough Salicylates Acetaminophen Crossmatch See Detail Allied health notes reviewed: nursing
[2020-11-17] MEDS: fentaNYL DRIP Premix 2,000 MCG/100 ML BAG IV SCH (14:25)
--- NOTE | 2020-11-17 16:21 | Progress Note ---
Assessment and Plan Cultures: 10/26/2020 tracheal aspirate culture: MRSA 10/26/2020 blood culture: Proteus 10/27/2020 urine culture: Mixed hien 07/17/2021 tracheal aspirate culture staph aureus A/P: 75-year-old male, long term resident with seizure disorder, hypertension, depression, hyperlipidemia, chronic encephalopathy was sent to the hospital with worsening mental status: #Septic shock: probably from pneumonia. #Acute hypoxic respiratory failure: back on the vent. #Proteus bacteremia: multifactorial from infected sacral decubitus ulcer, bilateral pneumonia, UTI. S/P abx. #Acute diarrhea: ? C. difficile, improved on vancomycin p.o. Diarrhea improved, Cdiff test was not able to be done. #Necrotic, infected sacral decubitus ulcer: underwent debridement 10/29/2020, also noted to have brittle coccyx consistent with osteomyelitis. #UTI: UA with significant pyuria. #FAZAL: resolved #PVD: SFA occlusion. Not a candidate for revascularization per vascular Recs: Continue vancomycin as empiric therapy for bilateral pneumonia Extend course of p.o. vancomycin due to initiation of systemic antibiotics Stop cefepime given staff in the tracheal aspirate culture Overall, guarded prognosis Eliezer Jack MD [facility] O: [phone] F: [phone] Subjective Date of service: 11/17/20 Principal diagnosis: Acute Resp Fail, Septic Shock, Sacral Ulcer, AF with RVR Interval history: Afebrile, normal white count. Sputum culture most recently with staph aureus. Imaging personally reviewed: Chest x-ray: Unchanged exam, moderate patchy multilobar airspace disease Objective - Exam Narrative Exam: General appearance: alert in NAD on BiPAP Eyes: anicteric sclerae, moist conjunctivae; no lid-lag; PERRLA HENT: Normocephalic, Atraumatic; normal external ears, nares openNeck: supple, tracheal midline Lungs: Diminished breath sound bilaterally CV: RRR Abdomen: Soft, nontender Extremities: Bilateral upper extremity and lower extremity edema Skin: No rash. Extensive scrotal edema Psych: Not agitated Neuro: Alert, open eyes, follows commands - Constitutional Vitals: Vital Signs Temp Pulse Resp BP Pulse Ox 97.9 F 109 H 16 115/73 100 11/17/20 16:00 11/17/20 16:00 11/17/20 16:00 11/17/20 16:00 11/17/20 16:00 Temperature -Last 24 Hours Temperature 97.9 F Temperature 98 F Temperature 98.2 F Temperature 97 F Temperature 97.1 F Temperature 97.0 F Temperature 97.6 F Temperature 98.0 F Temperature 98.3 F Temperature 98.6 F Temperature 98.2 F - Labs CBC & Chem 7: 11/17/20 09:50 11/17/20 09:50 Labs: Abnormal lab results 11/16/20 11/16/20 11/17/20 Range/Units 17:14 23:40 04:30 RBC (3.65-5.03) M/mm3 Hgb (11.8-15.2) gm/dl Hct (35.5-45.6) % MCV (84-94) fl MCH (28-32) pg RDW (13.2-15.2) % ABG pH 7.470 H (7.320-7.450) POC ABG pO2 75.4 L (83-108) mmHg ABG Hemoglobin 7 L (12.0-17.5) ABG Chloride 116.0 H (98-107) mmol/L ABG Glucose 161 H (65-95) mg/dL Chloride (98-107) mmol/L BUN (9-20) mg/dL Creatinine (0.8-1.3) mg/dL Glucose (75-100) mg/dL POC Glucose 139 H 151 H (70-105) mg/dL Calcium (8.4-10.2) mg/dL Arterial Blood Glucose 161 H (65-95) mg/dL Crossmatch 11/17/20 11/17/20 11/17/20 Range/Units 09:50 09:50 11:10 RBC 2.02 L (3.65-5.03) M/mm3 Hgb 6.6 L (11.8-15.2) gm/dl Hct 20.2 L (35.5-45.6) % MCV 100 H (84-94) fl MCH 33 H (28-32) pg RDW 22.4 H (13.2-15.2) % ABG pH (7.320-7.450) POC ABG pO2 (83-108) mmHg ABG Hemoglobin (12.0-17.5) ABG Chloride (98-107) mmol/L ABG Glucose (65-95) mg/dL Chloride 111.8 H (98-107) mmol/L BUN 23 H (9-20) mg/dL Creatinine 0.4 L (0.8-1.3) mg/dL Glucose 142 H (75-100) mg/dL POC Glucose (70-105) mg/dL Calcium 7.3 L (8.4-10.2) mg/dL Arterial Blood Glucose (65-95) mg/dL Crossmatch See Detail
--- NOTE | 2020-11-17 16:26 | Consultation ---
History of Present Illness Consult date: 11/17/20 Chief complaint: Needs tracheostomy and PEG - History of present illness History of present illness: 75 yo male with chronic respiratory failure and encephalopathy. He is in need of a tracheostomy and PEG. Past History Past Medical History: other (unable to provide) Past Surgical History: Other (unable to provide) Social history: other (unable to provide) Family history: other (unable to provide) Medications and Allergies Allergies Allergy/AdvReac Type Severity Reaction Status Date / Time No Known Allergies Allergy Verified 01/10/19 02:20 Home Medications Medication Instructions Recorded Confirmed Last Taken Type Folic Acid [Folvite] 1 mg PO QDAY 01/10/19 11/02/20 Unknown History Primidone [Mysoline] 250 mg PO TID 01/10/19 11/02/20 Unknown History carBAMazepine [Carbamazepine] 200 mg PO TID 01/10/19 11/02/20 Unknown History Aspirin [Aspirin BABY CHEW TAB] 81 mg PO QDAY 08/15/20 11/02/20 Unknown History AtorvaSTATin [Lipitor] 40 mg PO QHS 08/15/20 11/02/20 Unknown History Citalopram Hydrobromide 20 mg PO QDAY 08/15/20 11/02/20 Unknown History [Citalopram HBr] Ergocalciferol [Vitamin D2] 1 cap PO QWEEK 08/15/20 11/02/20 Unknown History Folic Acid [Folvite] 1 mg PO QDAY 08/15/20 11/02/20 Unknown History Mirtazapine 7.5 mg PO QHS 08/15/20 11/02/20 Unknown History guaiFENesin ER [Mucinex ER] 600 mg PO Q12H 08/15/20 11/02/20 Unknown History Midodrine [Proamatine] 5 mg PO 0800,1200,1600 #90 tablet 09/02/20 11/02/20 Unknown Rx oxyCODONE /ACETAMINOPHEN [Percocet 1 tab PO Q6H PRN #14 tablet 09/02/20 11/02/20 Unknown Rx 5/325 mg] Active Meds: Active Medications Acetaminophen (Acetaminophen 325 Mg Tab) 650 mg PO Q4H PRN PRN Reason: Pain MILD(1-3)/Fever >100.5/TIERNEY Last Admin: 11/13/20 14:36 Dose: 650 mg Documented by: Albuterol (Albuterol 2.5 Mg/3 Ml Nebu) 2.5 mg IH TIDRT MARSHALL Last Admin: 11/17/20 13:47 Dose: 2.5 mg Documented by: Lipase/Protease/Amylase (Lipase 10,500/Protease 25,000/Amylase 43,750 (Units) Dr Cap) 1 each FEEDTUBE PRN PRN PRN Reason: For Clogged Feeding Tube Famotidine (Famotidine 20 Mg Tab) 20 mg PO BID MARSHALL Last Admin: 11/17/20 09:17 Dose: 20 mg Documented by: Fentanyl (Fentanyl 100 Mcg/2 Ml Inj) 50 mcg IV Q10MIN PRN PRN Reason: ANALGESIA Guaifenesin (Guaifenesin 100 Mg/5 Ml Oral Liqd) 200 mg PO Q4HR MARSHALL Last Admin: 11/17/20 14:20 Dose: 200 mg Documented by: Hydrophilic Ointment (Lip Therapy Vaseline) 1 applic TP Q2HR PRN PRN Reason: Dry Lips Dextrose (D5w) 1,000 mls @ 65 mls/hr IV DIRECT MARSHALL Last Admin: 11/17/20 01:37 Dose: 65 mls/hr Documented by: Dopamine HCl/Dextrose (Intropin Drip 800 Mg/D5w 250 Ml) 800 mg in 250 mls @ 12.188 mls/hr IV TITR MARSHALL; Protocol Last Titration: 11/16/20 00:16 Dose: 0 mcg/kg/min, 0 mls/hr Documented by: Fentanyl Citrate (Fentanyl Drip Premix) 2,000 mcg in 100 mls @ 6.55 mls/hr IV TITR MARSHALL; Protocol Last Admin: 11/17/20 14:25 Dose: 1 mcg/kg/hr, 6.55 mls/hr Documented by: Norepinephrine (Levophed Drip 4 Mg/Ns 250 Ml) 4 mg in 250 mls @ 7.5 mls/hr IV TITR MARSHALL; Protocol Last Titration: 11/17/20 01:37 Dose: 0 mcg/min, 0 mls/hr Documented by: Cefepime HCl (Cefepime/Ns 2 Gm/100 Ml) 2 gm in 100 mls @ 200 mls/hr IV Q12HR MARSHALL; Protocol Last Admin: 11/17/20 09:16 Dose: 200 mls/hr Documented by: Vancomycin HCl 2,000 mg/ (Sodium Chloride) 540 mls @ 333 mls/hr IV Q24H [facility]; Protocol Last Admin: 11/17/20 12:06 Dose: 333 mls/hr Documented by: Sodium Chloride (Nacl 0.9% 500 Ml) 500 mls @ 0 mls/hr IV ONCE MARSHALL Stop: 11/17/20 19:00 Last Admin: 11/17/20 14:21 Dose: 10 mls/hr Documented by: Midodrine (Midodrine 5 Mg Tab) 10 mg PO TID@0800,1200,1600 [facility] Last Admin: 11/17/20 12:07 Dose: 10 mg Documented by: Multi-Ingred Cream/Lotion/Oil/Oint (Mineral Oil/Petrolatum, White Ophth Oint 3.5 Gm) 1 applic OU Q4HR PRN PRN Reason: Dry Eye(s) Ondansetron HCl (Ondansetron 4 Mg/2 Ml Inj) 4 mg IV Q8H PRN PRN Reason: Nausea And Vomiting Simple Syrup (Simple Syrup 15 Ml) 15 ml FEEDTUBE PRN PRN PRN Reason: Hypoglycemia Last Admin: 11/10/20 16:01 Dose: 15 ml Documented by: Simple Syrup (Simple Syrup 15 Ml) 30 ml FEEDTUBE PRN PRN PRN Reason: Hypoglycemia Sodium Bicarbonate (Sodium Bicarbonate 325 Mg Tab) 325 mg FEEDTUBE PRN PRN PRN Reason: For Clogged Feeding Tube Sodium Chloride (Sodium Chloride 0.9% 10 Ml Flush Syringe) 10 ml IV BID [facility] Last Admin: 11/17/20 09:18 Dose: 10 ml Documented by: Sodium Chloride (Sodium Chloride 0.9% 10 Ml Flush Syringe) 10 ml IV PRN PRN PRN Reason: LINE FLUSH Sodium Hypochlorite (Sodium Hypochlorite, Dakin's 1/2 Strength (0.25%) 473 Ml Topical Soln) 1 applic TP BID [facility] Last Admin: 11/17/20 09:17 Dose: 1 applicatio Documented by: Vancomycin HCl (Vancomycin 250 Mg/10 Ml Oral Liqd) 125 mg PO Q6HR [facility]; Protocol Last Admin: 11/17/20 12:06 Dose: 125 mg Documented by: Review of Systems ROS unobtainable: due to mental status Exam Vital Signs Pulse Resp Pulse Ox 128 H 41 H 99 03/28/21 16:36 10/26/20 16:36 10/26/20 16:36 - General physical appearance Positive: well developed, well nourished, no distress - Eyes Positive: PERRL, normal occular movement - ENT Positive: normal pinna, normal nares, normal mucosa, no hearing loss, no congestion - Neck Positive: no masses, no bruits, trachea midline, no venous distension - Respiratory Positive: normal expansion, normal respiratory effort, clear to auscultation - Cardiovascular Rhythm: regular Heart Sounds: Present: S1 & S2. Absent: rub, click - Extremities Extremities: no ischemia, pulses symmetrical, No edema - Breasts Breasts: normal, no mass, no skin changes - Abdomen Abdomen: Present: soft, bowel sounds normal. Absent: tender, distended Hernia: none - Genitourinary Male Genitourinary: normal Female Genitourinary: normal - Integumentary no rash, no growths, no abnormal pigmentation - Neurologic Neurologic: alert and oriented to time, place and person, motor strength and sensation are grossly intact - Musculoskeletal normal gait, normal posture - Psychiatric Psychiatric: appropriate mood/affect, intact judgment & insight Results - Labs 11/17/20 09:50 11/17/20 09:50 Abnormal lab results 11/16/20 11/16/20 11/17/20 Range/Units 17:14 23:40 04:30 RBC (3.65-5.03) M/mm3 Hgb (11.8-15.2) gm/dl Hct (35.5-45.6) % MCV (84-94) fl MCH (28-32) pg RDW (13.2-15.2) % ABG pH 7.470 H (7.320-7.450) POC ABG pO2 75.4 L (83-108) mmHg ABG Hemoglobin 7 L (12.0-17.5) ABG Chloride 116.0 H (98-107) mmol/L ABG Glucose 161 H (65-95) mg/dL Chloride (98-107) mmol/L BUN (9-20) mg/dL Creatinine (0.8-1.3) mg/dL Glucose (75-100) mg/dL POC Glucose 139 H 151 H (70-105) mg/dL Calcium (8.4-10.2) mg/dL Arterial Blood Glucose 161 H (65-95) mg/dL Crossmatch 11/17/20 11/17/20 11/17/20 Range/Units 09:50 09:50 11:10 RBC 2.02 L (3.65-5.03) M/mm3 Hgb 6.6 L (11.8-15.2) gm/dl Hct 20.2 L (35.5-45.6) % MCV 100 H (84-94) fl MCH 33 H (28-32) pg RDW 22.4 H (13.2-15.2) % ABG pH (7.320-7.450) POC ABG pO2 (83-108) mmHg ABG Hemoglobin (12.0-17.5) ABG Chloride (98-107) mmol/L ABG Glucose (65-95) mg/dL Chloride 111.8 H (98-107) mmol/L BUN 23 H (9-20) mg/dL Creatinine 0.4 L (0.8-1.3) mg/dL Glucose 142 H (75-100) mg/dL POC Glucose (70-105) mg/dL Calcium 7.3 L (8.4-10.2) mg/dL Arterial Blood Glucose (65-95) mg/dL Crossmatch See Detail Diabetes panel 11/17/20 Range/Units 09:50 Sodium 144 (137-145) mmol/L Potassium 4.1 (3.6-5.0) mmol/L Chloride 111.8 H (98-107) mmol/L Carbon Dioxide 28 (22-30) mmol/L BUN 23 H (9-20) mg/dL Creatinine 0.4 L (0.8-1.3) mg/dL Glucose 142 H (75-100) mg/dL Calcium 7.3 L (8.4-10.2) mg/dL Calcium panel 11/17/20 Range/Units 09:50 Calcium 7.3 L (8.4-10.2) mg/dL Pituitary panel 11/17/20 Range/Units 09:50 Sodium 144 (137-145) mmol/L Potassium 4.1 (3.6-5.0) mmol/L Chloride 111.8 H (98-107) mmol/L Carbon Dioxide 28 (22-30) mmol/L BUN 23 H (9-20) mg/dL Creatinine 0.4 L (0.8-1.3) mg/dL Glucose 142 H (75-100) mg/dL Calcium 7.3 L (8.4-10.2) mg/dL Adrenal panel 11/17/20 Range/Units 09:50 Sodium 144 (137-145) mmol/L Potassium 4.1 (3.6-5.0) mmol/L Chloride 111.8 H (98-107) mmol/L Carbon Dioxide 28 (22-30) mmol/L BUN 23 H (9-20) mg/dL Creatinine 0.4 L (0.8-1.3) mg/dL Glucose 142 H (75-100) mg/dL Calcium 7.3 L (8.4-10.2) mg/dL Assessment and Plan - Patient Problems (1) Chronic respiratory failure Current Visit: Yes Status: Acute Plan to address problem: 1) Transfuse 2 units of PRBC 2) Will post for tracheostomy and PEG after hgb > 8.0.
--- NOTE | 2020-11-17 17:58 | Progress Note ---
<HALIE PIERCEMinnie - Last Filed: 11/17/20 17:58> Assessment and Plan Assessment and plan: -ID, cardiology, CCM, surgery, vascular surgery, nephrology, surgery, WOCN consulted, appreciate recommendations -FAZAL, pneumonia, infected sacral wound, acute respiratory failure, leukocytosis, hypotension requiring vasopressor support -Antibiotic therapy -Trend CBC and BMP -10/26 tracheal aspirate with MRSA, 10/26 blood cultures x2 with Proteus mirabilis, 10/27 urine culture possible contaminant, 11/15: Trach aspirate positive for staph coccus aureus, 11/06 occult stool positive -On mechanical ventilation, wean as tolerated, VAP bundle, CPAP trials as tolerated -Wound care per nursing -Dopamine -Sedated with fentanyl -Midodrine, norepinephrine as needed -Vancomycin -S/p IVF resuscitation -HIT panel negaitve GI/DVT prophylaxis: Lovenox subq, SCDs to bilateral legs while in bed, PPI Dispo: ICU The high probability of a clinically significant, sudden or life threatening deterioration of the [pulmonary, cardiac] system(s) required my full and direct attention, intervention and personal management. The aggregate critical care time was [35] minutes. This time is in addition to time spent performing reported procedures but includes the following: [X] Data Review and interpretation [X] Patient assessment and monitoring of vital signs [X] Documentation [X] Medication orders and management History Interval history: This is a 75-year-old male who is a [facility] resident with seizure disorder, hypertension, depression, hyperlipidemia, hypoglycemia, dysphagia, and enceph alopathy who presents to the emergency department on 10/26 via EMS for tachypnea, dry mucous membranes and hypoxia. Patient was hypotensive, febrile to 103 degrees and hypoxic in the emergency department therefore he was intubated and central IV access was obtained. Patient received 3.5 L of IV fluid in the emergency department. Patient was admitted to the hospital service with consults to CCM, surgery, WOCN and ID for Sepsis, acute kidney injury, urinary tract infection, acute respiratory failure, electrolyte imbalances, infected sacral wound and bilateral pneumonia. Sepsis Acute respiratory failure with Hypoxia Cardiovascular shock Infected sacral wound s/p debridement with surgery Generalized anasarca possible acute diastolic congestive heart failure Anemia s/p 3 units prbc Bilateral pleural effusion Right and left lung atelectasis secondary to mucous plug Proteus bacteremia MRSA pneumonia Urine tract infection Acute kidney injury with vasomotor Nephropathy Acute Diarrhea ?C.diff- Test was not peformed Leukocytosis SFA occlusion - Not a candidate for surgery per Vascular SVT- Resolved Hyperchloremia Hypocalcemia Lactic acidosis 10/27: Patient received additional 4 L LR for fluid resuscitation and CV monitoring was initiated. Patient is on Levophed. ID added Flagyl to vanc omycin and cefepime. His trach aspirate grew staph coccus aureus. At the time my examination patient the fentanyl drip was held by RN and he was on 14 MCG of Levophed. This morning he was on assist control 450/20/6/.100. We will give additional bolus of fluids with goal CVP 10-12 and repeat labs in AM. Surgery was consulted to possible debridement. 10/28: Overnight it was noted that patient went into SVT and he was given adenosine 6 mg/12 mg / 12 mg once and was started on a Cardizem drip after no response to amnio bolus and cardiology was consulted. Currently patient remains on Levophed drip and is hypotensive and received additional 2 L of bolus for goal CVP of 10-12. Infectious disease changed cefepime/Flagyl to meropenem for GNR in his blood cultures 09/04 and will continue vancomycin. Patient currently was not well controlled on max Cardizem and cardiology initiated amiodarone. Patient still is very tachycardic. Patient is hypomagnesemic and we will replete his Mg and recheck level. We will give the patient additional to complete resolve LR this afternoon. Patient has a standing order per [facility] to bolus the patient with LR for CVP goal of 10-12. This morning he is hyperch lormeic, metabolic acidotic (bicarb drip initiated) and his BUN/creatinine slightly elevated. Patient still remains lactic acidotic. 10/29: Patient's blood culture speciated to Proteus and his tracheal aspirate is MRSA. He is currently on ceftriaxone, Flagyl and vancomycin. Patient heart rate consistently is 110-150s and cardiology has given him an amiodarone bolus today and he remains on amiodarone drip. He looks much started on IV digoxin. This morning 4 L LR bolus was ordered and we will bolus an additional 4 L of LR this afternoon. Patient still has lactic acidosis, metabolic acidosis, leukocytosis and hyperchloremia. On examination this morning patient is more edematous and he remains on Levophed and amnio drip. 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 Remains on amio, levo and sedated with fentanyl. He is hypokalemic today which was repleted, h/h 02/18 and he is being type and crossed today with 2 units PRBC ordered to be transfused. Plt drop noted, heparin discontinued and HIT ordered. Bicarb gtt discontinued. No acute events overnight. 10/31: Patient hypomagnesemia today which was repleted and cardiology has changed his IV amiodarone to p.o. Patient will get albumin per [facility]. At the time my examination patient is on assist control 450/20/6/0.40. 11/03: At the time my examination patient is on assist control 450/20/6/0.25 and sedated with fentanyl and on Levophed at 4.Patient's leukocytosis is improving he received Albumin this weekend. Patient is hypokalemic, hypomagnesemic, hypocalcemic today. We will repeat his electrolytes and recheck a BMP in the a.m. Patient received 2 units PRBC on 10/30 and his hemoglobin has been trending down. We will recheck in the a.m. 11/04: At the time of my examination patient was on Levophed 3 mcg and on VZV/CPAP 450/20/6/0.35. Patient still has leukocytosis, respiratory alkalosis, hyponatr emia, hypochloremia, hypocalcemia. Today his magnesium and potassium repleted with bolus of potassium 4/magnesium 2. He received 60 mcg KCl p.o., 40 mEq of KCl IV and 2 g of magnesium sulfate. We will recheck BMP and mag and a.m. Surgery has deemed the patient to unstable for further debulking. We also consulted vascular surgery for PVD as patient has discoloration to BLE /feet. 11/05: Vascular surgery will obtain bilateral lower extremity arterial duplex to evaluate arterial flow and recommends adding as FWF to tube feedings in assisting to wean off of vasopressors. Patient has hypokalemia, hypophosphatemia and normal to low magnesium. Magnesium, potassium and phosphate have been repleted. Patient still remains on ventilator support but on CPAP trial this morning. Patient HIT is still pending. This morning at the time of my examination patient was on assist-control 450/20/6/0.35 and he tolerated CPAP trial for 4 hours yesterday. He was on Levophed 0.5 and his rectal tube output was noted at 1000 mL. 11/06: This morning patient was on a CPAP trial and became hypoxic with SPO2 into the 80s and was switched back to assist control. Patient's vent settings are assist control tidal and 450, rate 20, PEEP 6, FiO2 0.25. Today patient has leukocytosis, hypernatremia, hyperchloremia, hypocalcemia and hypophosphatemia. We will repeat a phosphate. His free water flushes have been increased and his magnesium has been repleted again. Patient has been started on Lovenox given improvement in his platelet count and on midodrine to help keep Levophed off. Infectious disease will continue p.o. vancomycin for total of 10 days. 11/07: Patient failed his CPAP trial yesterday and has been placed on CPAP 10/ again this morning by RT. Overnight patient was rested on assist control tolerance by 50, rate of 20, pressure support 6 and FiO2 30%. His lab work is still pending for this morning. On repeat his phosphorus was 4.50 yesterday and repletion was discontinued. 11/08/2020; patient is off pressors currently on midodrine. Patient is on ceftriaxone and vancomycin. Patient is on assist control. Patient was evaluated by vascular surgery for peripheral vascular disease with SFA occlusion and recommend no intervention at this time. Prognosis is guarded. Patient is on 2 L of intranasal oxygen. We will put speech therapy evaluation. 11/09/2020; patient is currently off pressors and on midodrine. Continue with ceftriaxone, Flagyl and vancomycin per ID recommendation. Patient's blood culture grew Proteus mirabilis and tracheal aspirate grew MRSA. Patient was e valuated by vascular surgery for PVD with SFA occlusion and recommend no intervention at this time. Patient is on 2 L of intranasal oxygen. Currently patient is on tube feeding and follow speech therapy evaluation. 11/10: Overnight noted to have increased RR, ? Awaiting speech eval considering patient still on Tube feeds. Continue to monitor Hypernatremia. Antibiotics today will be D12/14. Will continue discharge planning on discussion with CM. Patient nonrebreather. Possibly back on congestive heart failure will need appropriate diuresis. Transferred back to [facility]. Discussed with lab manager and also with cardiology. 11/11: Remains lethargic remains in respiratory distress chest x-ray shows right lung collapse likely secondary to mucous plug. Discussed with lab manager will likely undergo a bronchoscopy today. We will also continue to monitor as we did suggest possible pleural effusion which we think may be less likely but if that seems to be the case we will send patient for thoracentesis following the bronchoscopy. Continue to monitor hemoglobin continue to monitor diarrhea antibiotics management per infectious disease. I did speak and update patient's cousin yesterday. Patient still with edema will await cardiology reevaluation for possible further diuresis. 11/12: Patient for Bronchoscopy today. Continue supportive care 11/13: Patient Clinically improving, tolerated Bronchoscopy yesterday. Awaiting am labs today. Overnight had bradycardia. Continue weaning oxygen. Discussed with heavy mobile equipment operator patient did have bronchial plug plus pleural effu sirisha but will address. Will monitor serial x-rays. Discussed with nursing staff about my discussion with the brother. Continue supportive care. PER Brother,([phone] patient has had recurrent knee aspiration. Cardiology to re-evaluate today for Bradycardia noted overnight 11/14: Patient had a repeat bronchoscopy yesterday of the right lung due to mucous plug. [place] did have a conversation with the cousin as one of the considerations may be a trach due to recurrent pulmonary mucous plug and also significant debility for patient's overall medical condition. And his inability to maintain his airway. We will start him on a low round of D5 until diet is established. We will continue to monitor clinical status this morning. Plan discussed with nursing staff patient and also with tie loader 11/15: Continues to show some improvement, will check CXR today. Wean oxygen as tolerated, will likely need Trach per pulmonary. WBC improving, will monitor Sodium level. Patient on dopamin. 11/16: Patient overnight required intubation due to worsening respiratory failure secondary to complete opacification of the right lung again. This has appeared to cleared up this morning following the intuabation. Cousin advised of the finding, he will try to get us all his records because he believes that the patient has had a trach done before but is not sure. Started on Pressors due to hypotension 11/17: Today general surgery was consulted for trach/PEG placement, patient grew staph and tracheal aspirate and his cefepime was stopped and [facility] ordered a trial dose of Lasix. At the time my examination patient was on 1 mcg of fentanyl and dopamine 5 mcg/kg per cardiology. He has hyperchloremia and his lab work and is anemic today at 6.6/20.2. Patient received 1 unit PRBC. We will obtain a CBC in the a.m. Hospitalist Physical - Constitutional Vitals: Temp Pulse Resp BP Pulse Ox 98 F 98 H 16 115/68 100 11/17/20 16:22 11/17/20 16:23 11/17/20 16:22 11/17/20 16:23 11/17/20 16:23 General appearance: Present: no acute distress, other (Intubated, resting comfortably) - EENT Eyes: Present: PERRL ENT: hearing intact, clear oral mucosa - Neck Neck: Present: normal ROM - Respiratory Respiratory effort: normal Respiratory: bilateral: CTA, diminished - Cardiovascular Rhythm: regularly irregular Heart Sounds: Present: S1 & S2. Absent: systolic murmur, diastolic murmur - Extremities Extremities: no ischemia, pulses intact, pulses symmetrical, normal temperature, normal color Extremity abnormal: edema Peripheral Pulses: within normal limits - Abdominal General gastrointestinal: soft, non-tender, non-distended, normal bowel sounds - Integumentary Integumentary: Present: warm, dry - Psychiatric Psychiatric: cooperative, other - Neurologic Neurologic: CNII-XII intact - Allied Health Allied health notes reviewed: nursing, RT HEART Score - HEART Score EKG: Non-specific Age: > 65 Risk factors: > 3 risk factors or hx of atherosclerotic disease Troponin: Troponin T 0.123 ng/mL (0.00-0.029) H* 11/13/20 23:15 Troponin: < normal limit - Critical Actions Critical Actions: 4-6 pts:12-16.6% risk of adverse cardiac event. Should be admitted Results - Labs CBC & Chem 7: 11/17/20 09:50 11/17/20 09:50 Labs: Laboratory Last Values WBC 8.9 K/mm3 (4.5-11.0) 11/17/20 09:50 RBC 2.02 M/mm3 (3.65-5.03) L 11/17/20 09:50 Hgb 6.6 gm/dl (11.8-15.2) L 11/17/20 09:50 Hct 20.2 % (35.5-45.6) L 11/17/20 09:50 MCV 100 fl (84-94) H 11/17/20 09:50 MCH 33 pg (28-32) H 11/17/20 09:50 MCHC 33 % (32-34) 11/17/20 09:50 RDW 22.4 % (13.2-15.2) H 11/17/20 09:50 Plt Count 211 K/mm3 (140-440) 11/17/20 09:50 Lymph % (Auto) 9.1 % (13.4-35.0) L 11/09/20 06:00 [place] % (Auto) 5.4 % (0.0-7.3) 11/09/20 06:00 Eos % (Auto) 0.3 % (0.0-4.3) 11/09/20 06:00 Baso % (Auto) 0.4 % (0.0-1.8) 11/09/20 06:00 Lymph # (Auto) 1.2 K/mm3 (1.2-5.4) 11/09/20 06:00 [place] # (Auto) 0.7 K/mm3 (0.0-0.8) 11/09/20 06:00 Eos # (Auto) 0.0 K/mm3 (0.0-0.4) 11/09/20 06:00 Baso # (Auto) 0.0 K/mm3 (0.0-0.1) 11/09/20 06:00 Add Manual Diff Complete 11/10/20 13:46 Total Counted 100 11/10/20 13:46 Seg Neutrophils % 84.8 % (40.0-70.0) H 11/09/20 06:00 Seg Neuts % (Manual) 90.0 % (40.0-70.0) H 11/10/20 13:46 Band Neutrophils % 17.0 % 10/27/20 03:30 Lymphocytes % (Manual) 3.0 % (13.4-35.0) L 11/10/20 13:46 Monocytes % (Manual) 7.0 % (0.0-7.3) 11/10/20 13:46 Eosinophils % (Manual) 2.0 % (0.0-4.3) 10/27/20 03:30 Metamyelocytes % 4.0 % 10/27/20 03:30 Nucleated RBC % Not Reportable 11/10/20 13:46 Seg Neutrophils # 11.1 K/mm3 (1.8-7.7) H 11/09/20 06:00 Seg Neutrophils # Man 14.5 K/mm3 (1.8-7.7) H 11/10/20 13:46 Band Neutrophils # 0.0 K/mm3 11/10/20 13:46 Lymphocytes # (Manual) 0.5 K/mm3 (1.2-5.4) L 11/10/20 13:46 Abs React Lymphs (Man) 0.0 K/mm3 11/10/20 13:46 Monocytes # (Manual) 1.1 K/mm3 (0.0-0.8) H 11/10/20 13:46 Eosinophils # (Manual) 0.0 K/mm3 (0.0-0.4) 11/10/20 13:46 Basophils # (Manual) 0.0 K/mm3 (0.0-0.1) 11/10/20 13:46 Metamyelocytes # 0.0 K/mm3 11/10/20 13:46 Myelocytes # 0.0 K/mm3 11/10/20 13:46 Promyelocytes # 0.0 K/mm3 11/10/20 13:46 Blast Cells # 0.0 K/mm3 11/10/20 13:46 WBC Morphology Not Reportable 11/10/20 13:46 Hypersegmented Neuts Not Reportable 11/10/20 13:46 Hyposegmented Neuts Not Reportable 11/10/20 13:46 Hypogranular Neuts Not Reportable 11/10/20 13:46 Smudge Cells Not Reportable 11/10/20 13:46 Toxic Granulation Not Reportable 11/10/20 13:46 Toxic Vacuolation Not Reportable 11/10/20 13:46 Dohle Bodies Not Reportable 11/10/20 13:46 Pelger-Huet Anomaly Not Reportable 11/10/20 13:46 Kassi Rods Not Reportable 11/10/20 13:46 Platelet Estimate Not Reportable 11/10/20 13:46 Clumped Platelets Not Reportable 11/10/20 13:46 Plt Clumps, EDTA Not Reportable 11/10/20 13:46 Large Platelets Not Reportable 11/10/20 13:46 Giant Platelets Not Reportable 11/10/20 13:46 Platelet Satelliting Not Reportable 11/10/20 13:46 Plt Morphology Comment Not Reportable 11/10/20 13:46 RBC Morphology Not Reportable 11/10/20 13:46 Dimorphic RBCs Yes 11/10/20 13:46 Polychromasia Not Reportable 11/10/20 13:46 Hypochromasia Not Reportable 11/10/20 13:46 Poikilocytosis Not Reportable 11/10/20 13:46 Anisocytosis Not Reportable 11/10/20 13:46 Microcytosis Rare 11/10/20 13:46 Macrocytosis Rare 11/10/20 13:46 Spherocytes Not Reportable 11/10/20 13:46 Pappenheimer Bodies Not Reportable 11/10/20 13:46 Sickle Cells Not Reportable 11/10/20 13:46 Target Cells Not Reportable 11/10/20 13:46 Tear Drop Cells Not Reportable 11/10/20 13:46 Ovalocytes Not Reportable 11/10/20 13:46 Helmet Cells Not Reportable 11/10/20 13:46 [place]-Eliza Bodies Not Reportable 11/10/20 13:46 [place] Rings Not Reportable 11/10/20 13:46 [place] Cells Not Reportable 11/10/20 13:46 Bite Cells Not Reportable 11/10/20 13:46 Crenated Cell Not Reportable 11/10/20 13:46 Elliptocytes Not Reportable 11/10/20 13:46 Acanthocytes (Spur) Not Reportable 11/10/20 13:46 Rouleaux Not Reportable 11/10/20 13:46 Hemoglobin C Crystals Not Reportable 11/10/20 13:46 Schistocytes Not Reportable 11/10/20 13:46 Malaria parasites Not Reportable 11/10/20 13:46 Richard Bodies Not Reportable 11/10/20 13:46 Hem Pathologist Commnt No 11/10/20 13:46 PT 15.0 Sec. (12.2-14.9) H 11/11/20 14:38 INR 1.18 (0.87-1.13) H 11/11/20 14:38 APTT 27.9 Sec. (24.2-36.6) 10/26/20 17:25 Heparin Anti-Xa, Unfract Negative (Negative) 11/03/20 11:01 ABG pH 7.470 (7.320-7.450) H 11/17/20 04:30 POC ABG pCO2 37.6 mmHg (32.0-48.0) 11/17/20 04:30 ABG pCO2 49.1 mm Hg 11/16/20 03:43 POC ABG pO2 75.4 mmHg (83-108) L 11/17/20 04:30 ABG pO2 91.6 mm Hg (80.0-90.0) H 11/16/20 03:43 POC ABG HCO3 26.8 11/17/20 04:30 ABG HCO3 26.3 mmol/L (20.0-26.0) H 11/16/20 03:43 ABG O2 Saturation 96.3 (0-100) 11/17/20 04:30 ABG O2 Content 9.9 (0.0-44) 11/16/20 03:43 POC ABG Base Excess 2.9 11/17/20 04:30 ABG Base Excess 0.5 mmol/L (-2.0-3.0) 11/16/20 03:43 ABG Hemoglobin 7 (12.0-17.5) L 11/17/20 04:30 ABG Oxyhemoglobin 77.1 (94-98) L 11/13/20 Unknown ABG Carboxyhemoglobin 1.6 % (0.0-5.0) 11/16/20 03:43 ABG Methemoglobin 0.5 % (0.0-1.5) 11/16/20 03:43 ABG Sodium 142.0 mmol/L (136.0-145.0) 11/17/20 04:30 ABG Potassium 3.8 mmol/L (3.40-4.50) 11/17/20 04:30 ABG Chloride 116.0 mmol/L (98-107) H 11/17/20 04:30 ABG Glucose 161 mg/dL (65-95) H 11/17/20 04:30 Oxyhemoglobin 95.0 % (95.0-99.0) 11/16/20 03:43 Carboxyhemoglobin 0.8 (0.5-1.5) 11/13/20 Unknown FiO2 80 % 11/16/20 03:43 FiO2 % 50 11/17/20 04:30 Sodium 144 mmol/L (137-145) 11/17/20 09:50 Potassium 4.1 mmol/L (3.6-5.0) 11/17/20 09:50 Chloride 111.8 mmol/L (98-107) H 11/17/20 09:50 Carbon Dioxide 28 mmol/L (22-30) 11/17/20 09:50 Anion Gap 8 mmol/L 11/17/20 09:50 BUN 23 mg/dL (9-20) H 11/17/20 09:50 Creatinine 0.4 mg/dL (0.8-1.3) L 11/17/20 09:50 Estimated GFR > 60 ml/min 11/17/20 09:50 BUN/Creatinine Ratio 58 % 11/17/20 09:50 Glucose 142 mg/dL (75-100) H 11/17/20 09:50 POC Glucose 93 mg/dL (70-105) 11/17/20 05:36 Hemoglobin A1c 5.5 % (4-6) 10/27/20 04:42 Lactic Acid 4.30 mmol/L (0.7-2.0) H* 10/31/20 Unknown Calcium 7.3 mg/dL (8.4-10.2) L 11/17/20 09:50 Phosphorus 4.50 mg/dL (2.5-4.5) D 11/06/20 13:03 Magnesium 1.70 mg/dL (1.7-2.3) 11/13/20 23:15 Total Bilirubin < 0.20 mg/dL (0.1-1.2) 11/06/20 06:45 AST 23 units/L (5-40) 11/06/20 06:45 ALT 20 units/L (7-56) 11/06/20 06:45 Alkaline Phosphatase 117 units/L (35-129) 11/06/20 06:45 Total Creatine Kinase 31 units/L (55-170) L 10/26/20 17:28 Troponin T 0.123 ng/mL (0.00-0.029) H* 11/13/20 23:15 Total Protein 5.0 g/dL (6.3-8.2) L 11/06/20 06:45 Albumin 1.4 g/dL (3.9-5) L 11/06/20 06:45 Albumin/Globulin Ratio 0.4 % 11/06/20 06:45 Triglycerides 190 mg/dL (2-149) H 10/26/20 17:25 Cholesterol 92 mg/dL (50-199) 10/26/20 17:25 LDL Cholesterol Direct 33 mg/dL (50-130) L 10/26/20 17:25 HDL Cholesterol 18 mg/dL (40-59) L 10/26/20 17:25 Cholesterol/HDL Ratio 5.11 % 10/26/20 17:25 Serotonin Release Assay See scanned results 11/03/20 11:01 TSH 1.490 mlU/mL (0.270-4.200) 10/26/20 17:28 Arterial Blood Glucose 161 mg/dL (65-95) H 11/17/20 04:30 Arterial Blood Ionized Calcium 4.6 mg/dL (4.6-5.3) 11/17/20 04:30 Urine Color Yellow (Yellow) 10/27/20 Unknown Urine Turbidity Turbid (Clear) 10/27/20 Unknown Urine pH 8.0 (5.0-7.0) H 10/27/20 Unknown Ur Specific Bessie 1.020 (1.003-1.030) 10/27/20 Unknown Urine Protein >500 mg/dL (Negative) 10/27/20 Unknown Urine Glucose (UA) Neg mg/dL (Negative) 10/27/20 Unknown Urine Ketones Neg mg/dL (Negative) 10/27/20 Unknown Urine Blood Sm (Negative) 10/27/20 Unknown Urine Nitrite Neg (Negative) 10/27/20 Unknown Urine Bilirubin Neg (Negative) 10/27/20 Unknown Urine Urobilinogen < 2.0 mg/dL (<2.0) 10/27/20 Unknown Ur Leukocyte Esterase Mod (Negative) 10/27/20 Unknown Urine WBC (Auto) > 182.0 /HPF (0.0-6.0) H 10/27/20 Unknown Urine RBC (Auto) 35.0 /HPF (0.0-6.0) 10/27/20 Unknown Urine WBC Clumps 3+ /HPF 10/27/20 Unknown Urine Mucus 3+ /HPF 10/27/20 Unknown Urine Yeast (Budding) 3+ /HPF 10/27/20 Unknown Vancomycin Trough 22.0 ug/mL (5.0-20.0) H 10/30/20 Unknown Salicylates < 0.3 mg/dL (2.8-20.0) L 10/26/20 17:28 Acetaminophen 5.0 ug/mL (10.0-30.0) L 10/26/20 17:28 Heparin-induced Plt Ab Negative (Negative) 11/03/20 11:01 UF Heparin High Dose 0 % Release 11/03/20 11:01 MOISES UFH Low Dose 0.1 2 % Release 11/03/20 11:01 MOISES UFH Low Dose 0.5 0 % Release 11/03/20 11:01 Coronavirus (PCR) Negative (Negative) 10/27/20 Unknown Blood Type O POSITIVE 11/17/20 11:10 Antibody Screen Negative 11/17/20 11:10 Crossmatch See Detail 11/17/20 11:10 Microbiology: Microbiology 11/15/20 Unknown Tracheal Aspirate Sputum Culture - Preliminary Staphylococcus Aureus Rivas/IV: Voiding Method Indwelling Catheter Active Medications - Current Medications Current Medications: Generic Name Dose Route Start Last Admin Trade Name Freq PRN Reason Stop Dose Admin Acetaminophen 650 mg 10/26/20 22:22 11/13/20 14:36 Acetaminophen 325 Mg Tab PO 650 mg Q4H PRN Administration Pain MILD(1-3)/Fever >100.5/TIERNEY Albuterol 2.5 mg 11/11/20 14:00 11/17/20 13:47 Albuterol 2.5 Mg/3 Ml Nebu IH 2.5 mg TIDRT MARSHALL Administration Lipase/Protease/Amylase 1 each 10/28/20 13:18 Lipase 10,500/Protease 25,000/Amylase 43,750 (Units) Dr Cap FEEDTUBE PRN PRN For Clogged Feeding Tube Famotidine 20 mg 11/11/20 10:00 11/17/20 09:17 Famotidine 20 Mg Tab PO 20 mg BID MARSHALL Administration Fentanyl 50 mcg 11/15/20 22:30 Fentanyl 100 Mcg/2 Ml Inj IV Q10MIN PRN ANALGESIA Guaifenesin 200 mg 11/15/20 19:00 11/17/20 14:20 Guaifenesin 100 Mg/5 Ml Oral Liqd PO 200 mg Q4HR MARSHALL Administration Hydrophilic Ointment 1 applic 11/15/20 22:30 Lip Therapy Vaseline TP Q2HR PRN Dry Lips Dextrose 1,000 mls @ 65 mls/hr 11/14/20 08:00 11/17/20 01:37 D5w IV 65 mls/hr DIRECT MARSHALL Administration Dopamine HCl/Dextrose 800 mg in 250 mls @ 12.188 mls/hr 11/14/20 09:00 11/16/20 00:16 Intropin Drip 800 Mg/D5w 250 Ml IV 0 mcg/kg/min TITR MARSHALL 0 mls/hr Titration Protocol 5 MCG/KG/MIN Fentanyl Citrate 2,000 mcg in 100 mls @ 6.55 mls/hr 11/15/20 23:00 11/17/20 14:25 Fentanyl Drip Premix IV 1 mcg/kg/hr TITR MARSHALL 6.55 mls/hr Administration Protocol 1 MCG/KG/HR Norepinephrine 4 mg in 250 mls @ 7.5 mls/hr 11/15/20 23:45 11/17/20 01:37 Levophed Drip 4 Mg/Ns 250 Ml IV 0 mcg/min TITR MARSHALL 0 mls/hr Titration Protocol 2 MCG/MIN Vancomycin HCl 2,000 mg/ 540 mls @ 333 mls/hr 11/16/20 12:00 11/17/20 12:06 Sodium Chloride IV 333 mls/hr Q24H MARSHALL Administration Protocol Sodium Chloride 500 mls @ 0 mls/hr 11/17/20 11:00 11/17/20 14:21 Nacl 0.9% 500 Ml IV 11/17/20 19:00 10 mls/hr ONCE MARSHALL Administration As Directed Midodrine 10 mg 11/06/20 12:00 11/17/20 12:07 Midodrine 5 Mg Tab PO 10 mg TID@0800,1200,1600 MARSHALL Administration Multi-Ingred Cream/Lotion/Oil/Oint 1 applic 11/15/20 22:30 Mineral Oil/Petrolatum, White Ophth Oint 3.5 Gm OU Q4HR PRN Dry Eye(s) Ondansetron HCl 4 mg 10/26/20 22:22 Ondansetron 4 Mg/2 Ml Inj IV Q8H PRN Nausea And Vomiting Simple Syrup 15 ml 10/28/20 13:18 11/10/20 16:01 Simple Syrup 15 Ml FEEDTUBE 15 ml PRN PRN Administration Hypoglycemia Simple Syrup 30 ml 10/28/20 13:18 Simple Syrup 15 Ml FEEDTUBE PRN PRN Hypoglycemia Sodium Bicarbonate 325 mg 10/28/20 13:18 Sodium Bicarbonate 325 Mg Tab FEEDTUBE PRN PRN For Clogged Feeding Tube Sodium Chloride 10 ml 10/27/20 10:00 11/17/20 09:18 Sodium Chloride 0.9% 10 Ml Flush Syringe IV 10 ml BID MARSHALL Administration Sodium Chloride 10 ml 10/26/20 22:22 Sodium Chloride 0.9% 10 Ml Flush Syringe IV PRN PRN LINE FLUSH Sodium Hypochlorite 1 applic 10/28/20 10:00 11/17/20 09:17 Sodium Hypochlorite, Dakin's 1/2 Strength (0.25%) 473 Ml Topical Soln TP 1 applicatio BID MARSHALL Administration Vancomycin HCl 125 mg 11/16/20 12:00 11/17/20 12:06 Vancomycin 250 Mg/10 Ml Oral Liqd PO 125 mg Q6HR MARSHALL Administration Protocol Nutrition/Malnutrition Assess - Dietary Evaluation Nutrition/Malnutrition Findings: Nutrition Notes Start: 10/27/20 09:15 Freq: Status: Active Protocol: Document 11/17/20 14:12 (Rec: 11/17/20 14:18 [id number]) Nutrition Notes Initial or Follow up Reassessment Current Diagnosis Acute Kidney Injury,Decubitus( Pressure Ulcer),Sepsis, Hypertension,Respiratory Failure,Hyperlipidemia Other Pertinent Diagnosis AMS, MRSA, Encephalopathy, Metabiloc Acidosis, pneu ,FTT Current Diet Promote at 80 ml/hr Labs/Tests Na 144 BUN 23 Cr 0.4 Pertinent Medications D5w at 65 ml/hr Vancomycin Height 6 ft 2 in Weight 131.6 kg [place] Body Weight (kg) 86.36 BMI 37.2 Weight change and time frame wt fluctuations Weight Status Obese Subjective/Other Information FU for TF tolerance. Observed Promote running at goal rate and pt tolerating. Percent of energy/protein needs met: 100%/90% Burn Absent Trauma Absent GI Symptoms Diarrhea Difficulty In Swallowing,Chewing Skin Integrity/Comment Multiple pressure ulcer,1 infected Current % PO Negligible Minimum of two criteria No Fluid Accumulation Moderate to Severe (severe) #2 Nutrition Diagnosis Increased nutrient needs ( specify in comment below) Diagnosis Progress(for reassessment Continues documentation) #1 Nutrition Diagnosis Inadequate oral intake Diagnosis Progress(for reassessment Continues documentation) Is patient on ventilator? Yes Is Patient Ambulatory and/or Out of Bed No REE-([place]-confined to bed) 2544.612 Kcal/Kg value to use for calculation 14 Approximate Energy Requirements Using 1842 kcal/Kg Calculation Used for Recommendations Kcal/kg Additional Notes protein needs: 133 - 167g(1.2 - 1.5 g/kgAdBW 111) Fluid needs 1 ml/kcal Nutrition Intervention Change Diet Order: Continue Nutrition Support: Promote at 80 ml/hr with a flush of 50 ml q4h Kcal 1,920 Protein (gm) 120 Fluid (mL) 1,611 Goal #1 TF tolerance Goal #2 Meet at least 75% EER and protein needs via TF Goal #3 wound healing Anticipated Discharge Needs: unable to determine at this time Follow-Up By: 11/20/20 Additional Comments FU for stable TF <CHARLIE HERBERT - Last Filed: 12/15/20 17:38> Assessment and Plan Assessment and plan: I saw and evaluated the patient. I agree with the findings and the plan of care as documented in the Nurse Practitioner's~note, with the following corrections and additions. Hospitalist Physical - Constitutional Vitals: Temp Pulse Resp BP Pulse Ox 98.4 F 80 23 115/84 98 12/04/20 16:00 12/04/20 16:20 12/04/20 16:20 12/04/20 16:20 12/04/20 16:20 HEART Score - HEART Score Troponin: Troponin T 0.123 ng/mL (0.00-0.029) H* 11/13/20 23:15 Results - Labs CBC & Chem 7: 12/04/20 04:41 12/04/20 04:41 Labs: Laboratory Last Values WBC 14.6 K/mm3 (4.5-11.0) H 12/04/20 04:41 RBC 2.34 M/mm3 (3.65-5.03) L 12/04/20 04:41 Hgb 7.3 gm/dl (11.8-15.2) L 12/04/20 04:41 Hct 22.3 % (35.5-45.6) L 12/04/20 04:41 MCV 95 fl (84-94) H 12/04/20 04:41 MCH 31 pg (28-32) 12/04/20 04:41 MCHC 33 % (32-34) 12/04/20 04:41 RDW 17.6 % (13.2-15.2) H 12/04/20 04:41 Plt Count 430 K/mm3 (140-440) 12/04/20 04:41 Lymph % (Auto) 9.5 % (13.4-35.0) L 11/30/20 05:14 [place] % (Auto) 10.3 % (0.0-7.3) H 11/30/20 05:14 Eos % (Auto) 0.5 % (0.0-4.3) 11/30/20 05:14 Baso % (Auto) 0.4 % (0.0-1.8) 11/30/20 05:14 Lymph # (Auto) 1.5 K/mm3 (1.2-5.4) 11/30/20 05:14 [place] # (Auto) 1.6 K/mm3 (0.0-0.8) H 11/30/20 05:14 Eos # (Auto) 0.1 K/mm3 (0.0-0.4) 11/30/20 05:14 Baso # (Auto) 0.1 K/mm3 (0.0-0.1) 11/30/20 05:14 Add Manual Diff Complete 11/23/20 10:23 Total Counted 100 11/23/20 10:23 Seg Neutrophils % 79.3 % (40.0-70.0) H 11/30/20 05:14 Seg Neuts % (Manual) 94.0 % (40.0-70.0) H 11/23/20 10:23 Band Neutrophils % 17.0 % 10/27/20 03:30 Lymphocytes % (Manual) 5.0 % (13.4-35.0) L 11/23/20 10:23 Monocytes % (Manual) 1.0 % (0.0-7.3) 11/23/20 10:23 Eosinophils % (Manual) 2.0 % (0.0-4.3) 10/27/20 03:30 Metamyelocytes % 4.0 % 10/27/20 03:30 Nucleated RBC % Not Reportable 11/23/20 10:23 Seg Neutrophils # 12.3 K/mm3 (1.8-7.7) H 11/30/20 05:14 Seg Neutrophils # Man 10.6 K/mm3 (1.8-7.7) H 11/23/20 10:23 Band Neutrophils # 0.0 K/mm3 11/23/20 10:23 Lymphocytes # (Manual) 0.6 K/mm3 (1.2-5.4) L 11/23/20 10:23 Abs React Lymphs (Man) 0.0 K/mm3 11/23/20 10:23 Monocytes # (Manual) 0.1 K/mm3 (0.0-0.8) 11/23/20 10:23 Eosinophils # (Manual) 0.0 K/mm3 (0.0-0.4) 11/23/20 10:23 Basophils # (Manual) 0.0 K/mm3 (0.0-0.1) 11/23/20 10:23 Metamyelocytes # 0.0 K/mm3 11/23/20 10:23 Myelocytes # 0.0 K/mm3 11/23/20 10:23 Promyelocytes # 0.0 K/mm3 11/23/20 10:23 Blast Cells # 0.0 K/mm3 11/23/20 10:23 WBC Morphology Not Reportable 11/23/20 10:23 Hypersegmented Neuts Not Reportable 11/23/20 10:23 Hyposegmented Neuts Not Reportable 11/23/20 10:23 Hypogranular Neuts Not Reportable 11/23/20 10:23 Smudge Cells Not Reportable 11/23/20 10:23 Toxic Granulation Not Reportable 11/23/20 10:23 Toxic Vacuolation Not Reportable 11/23/20 10:23 Dohle Bodies Not Reportable 11/23/20 10:23 Pelger-Huet Anomaly Not Reportable 11/23/20 10:23 Kassi Rods Not Reportable 11/23/20 10:23 Platelet Estimate Consistent w auto 11/23/20 10:23 Clumped Platelets Not Reportable 11/23/20 10:23 Plt Clumps, EDTA Not Reportable 11/23/20 10:23 Large Platelets Not Reportable 11/23/20 10:23 Giant Platelets Not Reportable 11/23/20 10:23 Platelet Satelliting Not Reportable 11/23/20 10:23 Plt Morphology Comment Not Reportable 11/23/20 10:23 RBC Morphology Normal 11/23/20 10:23 Dimorphic RBCs Not Reportable 11/23/20 10:23 Polychromasia Not Reportable 11/23/20 10:23 Hypochromasia Not Reportable 11/23/20 10:23 Poikilocytosis Not Reportable 11/23/20 10:23 Anisocytosis Not Reportable 11/23/20 10:23 Microcytosis Not Reportable 11/23/20 10:23 Macrocytosis Not Reportable 11/23/20 10:23 Spherocytes Not Reportable 11/23/20 10:23 Pappenheimer Bodies Not Reportable 11/23/20 10:23 Sickle Cells Not Reportable 11/23/20 10:23 Target Cells Not Reportable 11/23/20 10:23 Tear Drop Cells Not Reportable 11/23/20 10:23 Ovalocytes Not Reportable 11/23/20 10:23 Helmet Cells Not Reportable 11/23/20 10:23 [place]-Eliza Bodies Not Reportable 11/23/20 10:23 [place] Rings Not Reportable 11/23/20 10:23 [place] Cells Not Reportable 11/23/20 10:23 Bite Cells Not Reportable 11/23/20 10:23 Crenated Cell Not Reportable 11/23/20 10:23 Elliptocytes Not Reportable 11/23/20 10:23 Acanthocytes (Spur) Not Reportable 11/23/20 10:23 Rouleaux Not Reportable 11/23/20 10:23 Hemoglobin C Crystals Not Reportable 11/23/20 10:23 Schistocytes Not Reportable 11/23/20 10:23 Malaria parasites Not Reportable 11/23/20 10:23 Richard Bodies Not Reportable 11/23/20 10:23 Hem Pathologist Commnt No 11/23/20 10:23 PT 14.7 Sec. (12.2-14.9) 11/19/20 06:36 INR 1.15 (0.87-1.13) H 11/19/20 06:36 APTT 27.9 Sec. (24.2-36.6) 10/26/20 17:25 Heparin Anti-Xa, Unfract Negative (Negative) 11/03/20 11:01 ABG pH 7.515 (7.320-7.450) H 11/28/20 03:56 POC ABG pCO2 38.5 mmHg (32.0-48.0) 11/28/20 03:56 ABG pCO2 43.4 mm Hg 11/19/20 Unknown POC ABG pO2 74.5 mmHg (83-108) L 11/28/20 03:56 ABG pO2 72.4 mm Hg (80.0-90.0) L 11/19/20 Unknown POC ABG HCO3 30.4 11/28/20 03:56 ABG HCO3 26.9 mmol/L (20.0-26.0) H 11/19/20 Unknown ABG O2 Saturation 95.8 (0-100) 11/28/20 03:56 ABG O2 Content 11.3 (0.0-44) 11/19/20 Unknown POC ABG Base Excess 6.9 11/28/20 03:56 ABG Base Excess 2.0 mmol/L (-2.0-3.0) 11/19/20 Unknown ABG Hemoglobin 8.4 (12.0-17.5) L 11/28/20 03:56 ABG Oxyhemoglobin 94.8 (94-98) 11/28/20 03:56 ABG Carboxyhemoglobin 2.0 % (0.0-5.0) 11/19/20 Unknown ABG Methemoglobin 0.3 (0.0-1.5) 11/28/20 03:56 ABG Sodium 136.5 mmol/L (136.0-145.0) 11/28/20 03:56 ABG Potassium 3.9 mmol/L (3.40-4.50) 11/28/20 03:56 ABG Chloride 104.0 mmol/L (98-107) 11/28/20 03:56 ABG Glucose 130 mg/dL (65-95) H 11/28/20 03:56 Oxyhemoglobin 94.1 % (95.0-99.0) L 11/19/20 Unknown Carboxyhemoglobin 0.7 (0.5-1.5) 11/28/20 03:56 FiO2 30 % 11/19/20 Unknown FiO2 % 30.0 11/28/20 03:56 Sodium 135 mmol/L (137-145) L 12/04/20 04:41 Potassium 4.0 mmol/L (3.6-5.0) 12/04/20 04:41 Chloride 100.3 mmol/L (98-107) 12/04/20 04:41 Carbon Dioxide 27 mmol/L (22-30) 12/04/20 04:41 Anion Gap 12 mmol/L 12/04/20 04:41 BUN 21 mg/dL (9-20) H 12/04/20 04:41 Creatinine 0.4 mg/dL (0.8-1.3) L 12/04/20 04:41 Estimated GFR > 60 ml/min 12/04/20 04:41 BUN/Creatinine Ratio 53 % 12/04/20 04:41 Glucose 110 mg/dL (75-100) H 12/04/20 04:41 POC Glucose 98 mg/dL (70-105) 12/04/20 11:07 Hemoglobin A1c 5.5 % (4-6) 10/27/20 04:42 Lactic Acid 4.30 mmol/L (0.7-2.0) H* 10/31/20 Unknown Calcium 7.7 mg/dL (8.4-10.2) L 12/04/20 04:41 Phosphorus 4.50 mg/dL (2.5-4.5) D 11/06/20 13:03 Magnesium 1.70 mg/dL (1.7-2.3) 11/21/20 09:47 Total Bilirubin < 0.20 mg/dL (0.1-1.2) 11/27/20 05:55 AST 8 units/L (5-40) 11/27/20 05:55 ALT 8 units/L (7-56) 11/27/20 05:55 Alkaline Phosphatase 87 units/L (35-129) 11/27/20 05:55 Total Creatine Kinase 31 units/L (55-170) L 10/26/20 17:28 Troponin T 0.123 ng/mL (0.00-0.029) H* 11/13/20 23:15 Total Protein 6.1 g/dL (6.3-8.2) L 11/27/20 05:55 Albumin 1.7 g/dL (3.9-5) L 11/27/20 05:55 Albumin/Globulin Ratio 0.4 % 11/27/20 05:55 Triglycerides 190 mg/dL (2-149) H 10/26/20 17:25 Cholesterol 92 mg/dL (50-199) 10/26/20 17:25 LDL Cholesterol Direct 33 mg/dL (50-130) L 10/26/20 17:25 HDL Cholesterol 18 mg/dL (40-59) L 10/26/20 17:25 Cholesterol/HDL Ratio 5.11 % 10/26/20 17:25 Serotonin Release Assay See scanned results 11/03/20 11:01 TSH 1.490 mlU/mL (0.270-4.200) 10/26/20 17:28 Arterial Blood Glucose 130 mg/dL (65-95) H 11/28/20 03:56 Arterial Blood Ionized Calcium 4.5 mg/dL (4.6-5.3) L 11/28/20 03:56 Urine Color Yellow (Yellow) 10/27/20 Unknown Urine Turbidity Turbid (Clear) 10/27/20 Unknown Urine pH 8.0 (5.0-7.0) H 10/27/20 Unknown Ur Specific Bessie 1.020 (1.003-1.030) 10/27/20 Unknown Urine Protein >500 mg/dL (Negative) 10/27/20 Unknown Urine Glucose (UA) Neg mg/dL (Negative) 10/27/20 Unknown Urine Ketones Neg mg/dL (Negative) 10/27/20 Unknown Urine Blood Sm (Negative) 10/27/20 Unknown Urine Nitrite Neg (Negative) 10/27/20 Unknown Urine Bilirubin Neg (Negative) 10/27/20 Unknown Urine Urobilinogen < 2.0 mg/dL (<2.0) 10/27/20 Unknown Ur Leukocyte Esterase Mod (Negative) 10/27/20 Unknown Urine WBC (Auto) > 182.0 /HPF (0.0-6.0) H 10/27/20 Unknown Urine RBC (Auto) 35.0 /HPF (0.0-6.0) 10/27/20 Unknown Urine WBC Clumps 3+ /HPF 10/27/20 Unknown Urine Mucus 3+ /HPF 10/27/20 Unknown Urine Yeast (Budding) 3+ /HPF 10/27/20 Unknown Vancomycin Trough 18.0 ug/mL (5.0-20.0) 11/19/20 09:06 Salicylates < 0.3 mg/dL (2.8-20.0) L 10/26/20 17:28 Acetaminophen 5.0 ug/mL (10.0-30.0) L 10/26/20 17:28 Heparin-induced Plt Ab Negative (Negative) 11/03/20 11:01 UF Heparin High Dose 0 % Release 11/03/20 11:01 MOISES UFH Low Dose 0.1 2 % Release 11/03/20 11:01 MOISES UFH Low Dose 0.5 0 % Release 11/03/20 11:01 Coronavirus (PCR) Negative (Negative) 10/27/20 Unknown Blood Type O POSITIVE 11/17/20 11:10 Antibody Screen Negative 11/17/20 11:10 Crossmatch See Detail 11/17/20 11:10 Rivas/IV: Voiding Method Indwelling Catheter Nutrition/Malnutrition Assess - Dietary Evaluation Nutrition/Malnutrition Findings: Nutrition Notes Start: 10/27/20 09:15 Freq: Status: Discharge Protocol: Document 12/02/20 10:15 AT (Rec: 12/02/20 10:33 AT [id number]) Co-Sign 12/02/20 10:15 CW Nutrition Notes Initial or Follow up Reassessment Current Diagnosis Acute Kidney Injury,Decubitus( Pressure Ulcer),Sepsis, Hypertension,Respiratory Failure,Hyperlipidemia Other Pertinent Diagnosis AMS, MRSA, Encephalopathy, Metabiloc Acidosis, pneu ,FTT Current Diet Vital AF at 70 ml/hr Labs/Tests 11/30/20 BUN 21 Cr 0.4 Ca 7.7 Pertinent Medications Lasix Levophed Pancreaze Height 6 ft 2 in Weight 123.7 kg [place] Body Weight (kg) 86.36 BMI 35.0 Weight change and time frame Wt change noted. Weight Status Obese Subjective/Other Information Follow-up for TF tolerance. Pt is s/p trach and PEG. Visited pt at bedside and observed TF running Vital AF at goal rate of 70 mL/hr and is tolerating without incident. Percent of energy/protein needs met: 100%/95% Burn Absent Trauma Absent GI Symptoms Diarrhea,Last BM Difficulty In Swallowing,Chewing Skin Integrity/Comment Multiple pressure ulcer,1 infected Current % PO Negligible Minimum of two criteria No Fluid Accumulation Mild (non-severe) #2 Nutrition Diagnosis Increased nutrient needs ( specify in comment below) Diagnosis Progress(for reassessment Continues documentation) #1 Nutrition Diagnosis Inadequate oral intake Diagnosis Progress(for reassessment Continues documentation) Is patient on ventilator? Yes Is Patient Ambulatory and/or Out of Bed No REE-([place]-confined to bed) 2449.908 Kcal/Kg value to use for calculation 16 Approximate Energy Requirements Using 1979 kcal/Kg Calculation Used for Recommendations Kcal/kg Additional Notes PRO needs: 126-158 g(1.2-1.5 g /kg AdBW 105 kg) Nutrition Intervention Change Diet Order: Continue Nutrition Support: Vital AF at 70 ml/hr with a free water flush of 115 ml q4h Kcal 2,016 Protein (gm) 126 Fluid (mL) 1,362 Goal #1 TF tolerance Goal #2 Meet at least 75% EER and protein needs via TF Goal #3 wound healing Anticipated Discharge Needs: TF Follow-Up By: 12/05/20 Additional Comments F/U for TF tolerance, stable weight
[2020-11-18] MEDS: VANCOMYCIN 250 MG/10 ML ORAL LIQD PO SCH ×4 (00:04→17:16)
[2020-11-18] MEDS: guaiFENesin 100 MG/5 ML ORAL LIQD PO SCH ×3 (01:22→09:36)
--- NOTE | 2020-11-18 03:20 | XRay Report ---
CHEST - 1 VIEW INDICATION: follow up respiratory failure COMPARISON: Yesterday FINDINGS: SUPPORT DEVICES: Stable support device positioning. HEART: Stable cardiomediastinal silhouette. LUNGS/PLEURA: Persistent moderate patchy multifocal airspace disease in the lungs. ADDITIONAL FINDINGS: None. IMPRESSION: Unchanged exam. Signer Name: Prashanth Colindres MD Signed: 11/18/2020 3:15 AM Workstation Name: [id number]
[2020-11-18 05:01] LABS: Hematocrit 23.4 % (35.5-45.6); Hemoglobin 7.4 gm/dl (11.8-15.2); Mean Corpuscular HGB Conc 32 % (32-34); Mean Corpuscular Volume 99 fl (84-94); Platelet Count 245 K/mm3 (140-440); Red Blood Count 2.36 M/mm3 (3.65-5.03)
[2020-11-18 05:04] LABS: Red Cell Distribution Width 21.6 % (13.2-15.2)
[2020-11-18] MEDS: fentaNYL DRIP Premix 2,000 MCG/100 ML BAG IV SCH ×2 (05:45→20:29)
[2020-11-18 05:54] LABS: Blood Urea Nitrogen 23 mg/dL (9-20); Calcium 7.6 mg/dL (8.4-10.2); Hemolysis Index 12
[2020-11-18 06:02] LABS: BUN/Creatinine Ratio 58
[2020-11-18] MEDS: ALBUTEROL 2.5 MG/3 ML NEBU IH SCH ×3 (08:22→19:22)
[2020-11-18] MEDS: MIDODRINE 5 MG TAB PO SCH ×3 (08:27→17:15)
[2020-11-18] MEDS ORDERED: FUROSEMIDE 20 MG/2 ML INJ IV ONE (09:00)
[2020-11-18] MEDS: SODIUM HYPOCHLORITE, DAKIN'S 1/2 STRENGTH (0.25%) 473 ML TOPICAL SOLN TP SCH ×2 (09:35→22:25)
[2020-11-18] MEDS: FAMOTIDINE 20 MG TAB PO SCH ×2 (09:36→22:24)
--- NOTE | 2020-11-18 10:01 | Progress Note ---
Assessment and Plan The pt is a 75-year-old male care home resident with a past medical history of seizure disorder, hypertension, depression, hyperlipidemia, chronic encephalopathy. He is intubated and sedated on evaluation and thus HPI is obtained per the chart. Pt was sent to the hospital for evaluation of AMS. Following arrival, pt diagnosed with necrotic sacral ulcer, sepsis with septic shock requiring vasopressor support, UTI, bilateral PNA with acute respiratory failure requiring intubation, COVID-19 testing negative, anemia, FAZAL. Pt was reported to have SVT prehospital for which he received IV adenosine and cardiology was consulted. tte reviewed - EF 55-60%, no significant abnormalities. 11/18/20 Pt is intubated, unresponsive. Tele reviewed: Afib 90s. Low HR AF 30s, High AF 130s. Afib with uncontrolled ventricular response. Continue to hold AV Yariel blocking agents in setting of bradycardic episodes. Discontinue Dopamine gtt. No systemic AC at this time in setting of anemia requiring PRBC tx, thrombocytopenia and sacral ulcer Elevated Troponin Considering pt's advanced age and comorbidities will plan for conservative c ardiac management. Anemia requiring transfusion Continue to hold AC in setting of anemia requiring transfusions. Acute Respiratory Failure Pt is intubated with ventilated respirations. Management per pulmonology. Open Trach & PEG anticipated for 11/21/20 Pneumonia IV antibiotics per ID. Septic Shock Continue Levophed gtt as needed to support pressures. DVT Prophylaxis. Discontinue Lovenox DVT prophylaxis. No systemic AC at this time in setting of anemia requiring PRBC tx, thrombocytopenia and sacral ulcer Continue Sequential Compression Device Therapy. Will follow The patient has been seen in conjunction with Dr. Juliette Baldwin who agrees with the assessment and plan of care. - Patient Problems (1) AMS (altered mental status) Current Visit: Yes Status: Acute (2) Atrial fibrillation with RVR Current Visit: Yes Status: Acute Currently in SR with PJCs. No AC in setting of anemia. (3) Acute respiratory failure Current Visit: Yes Status: Acute (4) Bilateral pneumonia Current Visit: Yes Status: Acute (5) Sepsis Current Visit: Yes Status: Acute (6) Sepsis associated hypotension Current Visit: Yes Status: Acute Pt is requiring Levophed titration to maintain pressure (7) Sacral decubitus ulcer, stage IV Current Visit: Yes Status: Acute (8) UTI (urinary tract infection) Current Visit: Yes Status: Acute (9) FAZAL (acute kidney injury) Current Visit: Yes Status: Acute (10) Hypomagnesemia Current Visit: Yes Status: Acute (11) Anemia Current Visit: Yes Status: Acute (12) Thrombocytopenia Current Visit: Yes Status: Acute Subjective Date of service: 11/18/20 Principal diagnosis: Acute Resp Fail, Septic Shock, Sacral Ulcer, AF with RVR Interval history: Pt is intubated, unresponsive. Tele reviewed: Afib 90s. Low HR AF 30s, High AF 130s. Objective Last Vital Signs Temp 98.6 F 11/18/20 04:00 Pulse 98 H 11/18/20 09:00 Resp 20 11/18/20 09:00 BP 131/72 11/18/20 09:00 Pulse Ox 98 11/18/20 09:00 - Physical Examination General: Other (lethargic ) HEENT: Positive: Normocephaly Neck: Positive: neck supple, trachea midline Cardiac: Positive: irregularly irregular, S1/S2 Lungs: Positive: Ventilated Respirations Neuro: Positive: Grossly Intact, Other (lethargic) Abdomen: Positive: Soft Skin: Positive: Wound. Negative: Rash Musculoskeletal: No Pain Extremities: Present: upper extr. pulses, lower extr. pulses, edema, Other (chronic skin changes noted) - Labs and Meds CBC 11/17/20 11/18/20 Range/Units 09:50 04:45 WBC 8.9 9.0 (4.5-11.0) K/mm3 RBC 2.02 L 2.36 L (3.65-5.03) M/mm3 Hgb 6.6 L 7.4 L (11.8-15.2) gm/dl Hct 20.2 L 23.4 L (35.5-45.6) % Plt Count 211 245 (140-440) K/mm3 Comprehensive Metabolic Panel 11/17/20 11/18/20 Range/Units 09:50 04:45 Sodium 144 141 (137-145) mmol/L Potassium 4.1 4.3 (3.6-5.0) mmol/L Chloride 111.8 H 107.9 H (98-107) mmol/L Carbon Dioxide 28 30 (22-30) mmol/L BUN 23 H 23 H (9-20) mg/dL Creatinine 0.4 L 0.4 L (0.8-1.3) mg/dL Glucose 142 H 139 H (75-100) mg/dL Calcium 7.3 L 7.6 L (8.4-10.2) mg/dL - Imaging and Cardiology EKG: report reviewed, image reviewed Echo: report reviewed (10/28/2020- EF 55-60%, no significant valvular abnormal ities) - Telemetry EKG Rhythm: Atrial Fibrillation - Allied health notes Allied health notes reviewed: nursing
--- NOTE | 2020-11-18 11:57 | Progress Note ---
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 Phosphorus Magnesium Total Creatine Kinase Troponin T Total Protein Albumin Triglycerides LDL Cholesterol Direct HDL Cholesterol Arterial Blood Glucose Arterial Blood Ionized Calcium Urine pH Urine WBC (Auto) Vancomycin Trough Salicylates Acetaminophen Crossmatch See Detail 10/30/20 10/30/20 10/30/20 18:53 23:25 Unknown WBC RBC Hgb Hct MCV MCH MCHC RDW Plt Count Lymph % (Auto) Seg Neutrophils % Seg Neuts % (Manual) Lymphocytes % (Manual) Nucleated RBC % Seg Neutrophils # Seg Neutrophils # Man Lymphocytes # (Manual) Monocytes # (Manual) PT INR ABG pH POC ABG pCO2 POC ABG pO2 ABG pO2 ABG HCO3 ABG O2 Saturation ABG Base Excess ABG Hemoglobin ABG Oxyhemoglobin ABG Sodium ABG Potassium ABG Chloride ABG Glucose Oxyhemoglobin Carboxyhemoglobin Sodium Potassium Chloride Carbon Dioxide BUN Creatinine Glucose POC Glucose 130 H Lactic Acid Calcium Phosphorus Magnesium Total Creatine Kinase Troponin T Total Protein Albumin Triglycerides LDL Cholesterol Direct HDL Cholesterol Arterial Blood Glucose Arterial Blood Ionized Calcium Urine pH Urine WBC (Auto) Vancomycin Trough 21.4 H 22.0 H Salicylates Acetaminophen Crossmatch 10/30/20 10/31/20 10/31/20 Unknown 02:54 03:42 WBC 21.1 H 23.0 H RBC 2.36 L Hgb 7.3 L 11.4 L D Hct 22.7 L 34.1 L D MCV 96 H MCH MCHC RDW 17.1 H 16.2 H Plt Count 73 L 33 L Lymph % (Auto) Seg Neutrophils % Seg Neuts % (Manual) Lymphocytes % (Manual) Nucleated RBC % Seg Neutrophils # Seg Neutrophils # Man Lymphocytes # (Manual) Monocytes # (Manual) PT INR ABG pH 7.517 H POC ABG pCO2 25.7 L POC ABG pO2 52.3 L ABG pO2 ABG HCO3 ABG O2 Saturation ABG Base Excess ABG Hemoglobin ABG Oxyhemoglobin 90.8 L ABG Sodium ABG Potassium ABG Chloride 109.0 H ABG Glucose 147 H Oxyhemoglobin Carboxyhemoglobin Sodium Potassium Chloride Carbon Dioxide BUN Creatinine Glucose POC Glucose Lactic Acid Calcium Phosphorus Magnesium Total Creatine Kinase Troponin T Total Protein Albumin Triglycerides LDL Cholesterol Direct HDL Cholesterol Arterial Blood Glucose 147 H Arterial Blood Ionized Calcium 4.0 L Urine pH Urine WBC (Auto) Vancomycin Trough Salicylates Acetaminophen Crossmatch 10/31/20 10/31/20 10/31/20 04:37 04:37 05:08 WBC 21.7 H RBC Hgb Hct MCV MCH MCHC RDW 16.1 H Plt Count 39 L Lymph % (Auto) Seg Neutrophils % Seg Neuts % (Manual) Lymphocytes % (Manual) Nucleated RBC % Seg Neutrophils # Seg Neutrophils # Man Lymphocytes # (Manual) Monocytes # (Manual) PT INR ABG pH POC ABG pCO2 POC ABG pO2 ABG pO2 ABG HCO3 ABG O2 Saturation ABG Base Excess ABG Hemoglobin ABG Oxyhemoglobin ABG Sodium ABG Potassium ABG Chloride ABG Glucose Oxyhemoglobin Carboxyhemoglobin Sodium Potassium Chloride 108.4 H Carbon Dioxide BUN 25 H Creatinine 0.5 L Glucose 140 H POC Glucose 140 H Lactic Acid Calcium 6.1 L Phosphorus Magnesium 1.50 L Total Creatine Kinase Troponin T Total Protein Albumin Triglycerides LDL Cholesterol Direct HDL Cholesterol Arterial Blood Glucose Arterial Blood Ionized Calcium Urine pH Urine WBC (Auto) Vancomycin Trough Salicylates Acetaminophen Crossmatch 10/31/20 10/31/20 10/31/20 11:12 18:50 23:21 WBC RBC Hgb Hct MCV MCH MCHC RDW Plt Count Lymph % (Auto) Seg Neutrophils % Seg Neuts % (Manual) Lymphocytes % (Manual) Nucleated RBC % Seg Neutrophils # Seg Neutrophils # Man Lymphocytes # (Manual) Monocytes # (Manual) PT INR ABG pH POC ABG pCO2 POC ABG pO2 ABG pO2 ABG HCO3 ABG O2 Saturation ABG Base Excess ABG Hemoglobin ABG Oxyhemoglobin ABG Sodium ABG Potassium ABG Chloride ABG Glucose Oxyhemoglobin Carboxyhemoglobin Sodium Potassium Chloride Carbon Dioxide BUN Creatinine Glucose POC Glucose 125 H 142 H 127 H Lactic Acid Calcium Phosphorus Magnesium Total Creatine Kinase Troponin T Total Protein Albumin Triglycerides LDL Cholesterol Direct HDL Cholesterol Arterial Blood Glucose Arterial Blood Ionized Calcium Urine pH Urine WBC (Auto) Vancomycin Trough Salicylates Acetaminophen Crossmatch 10/31/20 11/01/20 11/01/20 Unknown 03:40 04:21 WBC RBC Hgb Hct MCV MCH MCHC RDW Plt Count Lymph % (Auto) Seg Neutrophils % Seg Neuts % (Manual) Lymphocytes % (Manual) Nucleated RBC % Seg Neutrophils # Seg Neutrophils # Man Lymphocytes # (Manual) Monocytes # (Manual) PT INR ABG pH 7.489 H POC ABG pCO2 POC ABG pO2 ABG pO2 77.2 L ABG HCO3 ABG O2 Saturation ABG Base Excess ABG Hemoglobin 7.1 L ABG Oxyhemoglobin ABG Sodium ABG Potassium ABG Chloride ABG Glucose Oxyhemoglobin Carboxyhemoglobin Sodium Potassium 3.1 L Chloride 107.1 H Carbon Dioxide BUN 25 H Creatinine 0.5 L Glucose 148 H POC Glucose Lactic Acid 4.30 H* Calcium 6.0 L Phosphorus Magnesium Total Creatine Kinase Troponin T Total Protein Albumin Triglycerides LDL Cholesterol Direct HDL Cholesterol Arterial Blood Glucose Arterial Blood Ionized Calcium Urine pH Urine WBC (Auto) Vancomycin Trough Salicylates Acetaminophen Crossmatch 0411/01/20 11/01/20 05:13 11:42 17:38 WBC RBC Hgb Hct MCV MCH MCHC RDW Plt Count Lymph % (Auto) Seg Neutrophils % Seg Neuts % (Manual) Lymphocytes % (Manual) Nucleated RBC % Seg Neutrophils # Seg Neutrophils # Man Lymphocytes # (Manual) Monocytes # (Manual) PT INR ABG pH POC ABG pCO2 POC ABG pO2 ABG pO2 ABG HCO3 ABG O2 Saturation ABG Base Excess ABG Hemoglobin ABG Oxyhemoglobin ABG Sodium ABG Potassium ABG Chloride ABG Glucose Oxyhemoglobin Carboxyhemoglobin Sodium Potassium Chloride Carbon Dioxide BUN Creatinine Glucose POC Glucose 139 H 139 H 161 H Lactic Acid Calcium Phosphorus Magnesium Total Creatine Kinase Troponin T Total Protein Albumin Triglycerides LDL Cholesterol Direct HDL Cholesterol Arterial Blood Glucose Arterial Blood Ionized Calcium Urine pH Urine WBC (Auto) Vancomycin Trough Salicylates Acetaminophen Crossmatch 11/01/20 11/01/20 11/02/20 23:20 Unknown 04:30 WBC 18.2 H RBC 3.27 L Hgb 9.9 L Hct 30.1 L D MCV MCH MCHC RDW 15.7 H Plt Count 34 L Lymph % (Auto) Seg Neutrophils % Seg Neuts % (Manual) Lymphocytes % (Manual) Nucleated RBC % Seg Neutrophils # Seg Neutrophils # Man Lymphocytes # (Manual) Monocytes # (Manual) PT INR ABG pH 7.456 H POC ABG pCO2 POC ABG pO2 ABG pO2 ABG HCO3 ABG O2 Saturation ABG Base Excess ABG Hemoglobin 9.2 L ABG Oxyhemoglobin ABG Sodium ABG Potassium ABG Chloride ABG Glucose Oxyhemoglobin Carboxyhemoglobin Sodium Potassium Chloride Carbon Dioxide BUN Creatinine Glucose POC Glucose 168 H Lactic Acid Calcium Phosphorus Magnesium Total Creatine Kinase Troponin T Total Protein Albumin Triglycerides LDL Cholesterol Direct HDL Cholesterol Arterial Blood Glucose Arterial Blood Ionized Calcium Urine pH Urine WBC (Auto) Vancomycin Trough Salicylates Acetaminophen Crossmatch 11/02/20 11/02/20 11/02/20 06:29 08:40 08:40 WBC 16.6 H RBC 2.87 L Hgb 8.8 L Hct 26.6 L MCV MCH MCHC RDW 15.8 H Plt Count 30 L Lymph % (Auto) Seg Neutrophils % Seg Neuts % (Manual) 97.0 H Lymphocytes % (Manual) 2.0 L Nucleated RBC % 1.0 H Seg Neutrophils # Seg Neutrophils # Man 16.1 H Lymphocytes # (Manual) 0.3 L Monocytes # (Manual) PT INR ABG pH POC ABG pCO2 POC ABG pO2 ABG pO2 ABG HCO3 ABG O2 Saturation ABG Base Excess ABG Hemoglobin ABG Oxyhemoglobin ABG Sodium ABG Potassium ABG Chloride ABG Glucose Oxyhemoglobin Carboxyhemoglobin Sodium Potassium 2.4 L* D Chloride 110.2 H Carbon Dioxide BUN 23 H Creatinine 0.4 L Glucose 154 H POC Glucose 131 H Lactic Acid Calcium 6.1 L Phosphorus Magnesium 1.50 L Total Creatine Kinase Troponin T Total Protein Albumin Triglycerides LDL Cholesterol Direct HDL Cholesterol Arterial Blood Glucose Arterial Blood Ionized Calcium Urine pH Urine WBC (Auto) Vancomycin Trough Salicylates Acetaminophen Crossmatch 11/02/20 11/02/20 11/02/20 13:17 17:25 18:05 WBC RBC Hgb Hct MCV MCH MCHC RDW Plt Count Lymph % (Auto) Seg Neutrophils % Seg Neuts % (Manual) Lymphocytes % (Manual) Nucleated RBC % Seg Neutrophils # Seg Neutrophils # Man Lymphocytes # (Manual) Monocytes # (Manual) PT INR ABG pH POC ABG pCO2 POC ABG pO2 ABG pO2 ABG HCO3 ABG O2 Saturation ABG Base Excess ABG Hemoglobin ABG Oxyhemoglobin ABG Sodium ABG Potassium ABG Chloride ABG Glucose Oxyhemoglobin Carboxyhemoglobin Sodium Potassium 3.1 L D Chloride Carbon Dioxide BUN Creatinine Glucose POC Glucose 134 H 140 H Lactic Acid Calcium Phosphorus Magnesium Total Creatine Kinase Troponin T Total Protein Albumin Triglycerides LDL Cholesterol Direct HDL Cholesterol Arterial Blood Glucose Arterial Blood Ionized Calcium Urine pH Urine WBC (Auto) Vancomycin Trough Salicylates Acetaminophen Crossmatch 11/02/20 11/03/20 11/03/20 23:36 04:15 05:07 WBC RBC Hgb Hct MCV MCH MCHC RDW Plt Count Lymph % (Auto) Seg Neutrophils % Seg Neuts % (Manual) Lymphocytes % (Manual) Nucleated RBC % Seg Neutrophils # Seg Neutrophils # Man Lymphocytes # (Manual) Monocytes # (Manual) PT INR ABG pH POC ABG pCO2 POC ABG pO2 ABG pO2 ABG HCO3 ABG O2 Saturation ABG Base Excess ABG Hemoglobin ABG Oxyhemoglobin ABG Sodium ABG Potassium ABG Chloride ABG Glucose Oxyhemoglobin Carboxyhemoglobin Sodium Potassium 3.0 L Chloride 111.8 H Carbon Dioxide BUN 24 H Creatinine 0.3 L Glucose 141 H POC Glucose 127 H 156 H Lactic Acid Calcium 5.8 L* Phosphorus Magnesium 1.60 L Total Creatine Kinase Troponin T Total Protein Albumin Triglycerides LDL Cholesterol Direct HDL Cholesterol Arterial Blood Glucose Arterial Blood Ionized Calcium Urine pH Urine WBC (Auto) Vancomycin Trough Salicylates Acetaminophen Crossmatch 11/03/20 11/03/20 11/04/20 11:14 17:31 00:17 WBC RBC Hgb Hct MCV MCH MCHC RDW Plt Count Lymph % (Auto) Seg Neutrophils % Seg Neuts % (Manual) Lymphocytes % (Manual) Nucleated RBC % Seg Neutrophils # Seg Neutrophils # Man Lymphocytes # (Manual) Monocytes # (Manual) PT INR ABG pH POC ABG pCO2 POC ABG pO2 ABG pO2 ABG HCO3 ABG O2 Saturation ABG Base Excess ABG Hemoglobin ABG Oxyhemoglobin ABG Sodium ABG Potassium ABG Chloride ABG Glucose Oxyhemoglobin Carboxyhemoglobin Sodium Potassium Chloride Carbon Dioxide BUN Creatinine Glucose POC Glucose 137 H 151 H 156 H Lactic Acid Calcium Phosphorus Magnesium Total Creatine Kinase Troponin T Total Protein Albumin Triglycerides LDL Cholesterol Direct HDL Cholesterol Arterial Blood Glucose Arterial Blood Ionized Calcium Urine pH Urine WBC (Auto) Vancomycin Trough Salicylates Acetaminophen Crossmatch 11/04/20 11/04/20 11/04/20 05:34 05:34 11:16 WBC 21.9 H RBC 2.67 L Hgb 8.2 L Hct 24.8 L MCV MCH MCHC RDW 15.6 H Plt Count 48 L Lymph % (Auto) Seg Neutrophils % Seg Neuts % (Manual) Lymphocytes % (Manual) Nucleated RBC % Seg Neutrophils # Seg Neutrophils # Man Lymphocytes # (Manual) Monocytes # (Manual) PT INR ABG pH POC ABG pCO2 POC ABG pO2 ABG pO2 ABG HCO3 ABG O2 Saturation ABG Base Excess ABG Hemoglobin ABG Oxyhemoglobin ABG Sodium ABG Potassium ABG Chloride ABG Glucose Oxyhemoglobin Carboxyhemoglobin Sodium 146 H Potassium Chloride 114.6 H Carbon Dioxide BUN 29 H Creatinine 0.3 L Glucose 173 H POC Glucose 156 H Lactic Acid Calcium 5.7 L* Phosphorus Magnesium Total Creatine Kinase Troponin T Total Protein Albumin Triglycerides LDL Cholesterol Direct HDL Cholesterol Arterial Blood Glucose Arterial Blood Ionized Calcium Urine pH Urine WBC (Auto) Vancomycin Trough Salicylates Acetaminophen Crossmatch 11/04/20 11/04/20 11/04/20 11:42 17:18 23:12 WBC RBC Hgb Hct MCV MCH MCHC RDW Plt Count Lymph % (Auto) Seg Neutrophils % Seg Neuts % (Manual) Lymphocytes % (Manual) Nucleated RBC % Seg Neutrophils # Seg Neutrophils # Man Lymphocytes # (Manual) Monocytes # (Manual) PT INR ABG pH 7.525 H POC ABG pCO2 28.9 L POC ABG pO2 64.3 L ABG pO2 ABG HCO3 ABG O2 Saturation ABG Base Excess ABG Hemoglobin 8.2 L ABG Oxyhemoglobin ABG Sodium ABG Potassium 3.3 L ABG Chloride 115.0 H ABG Glucose 165 H Oxyhemoglobin Carboxyhemoglobin Sodium Potassium Chloride Carbon Dioxide BUN Creatinine Glucose POC Glucose 144 H 155 H Lactic Acid Calcium Phosphorus Magnesium Total Creatine Kinase Troponin T Total Protein Albumin Triglycerides LDL Cholesterol Direct HDL Cholesterol Arterial Blood Glucose 165 H Arterial Blood Ionized Calcium 4.0 L Urine pH Urine WBC (Auto) Vancomycin Trough Salicylates Acetaminophen Crossmatch 11/05/20 11/05/20 11/05/20 04:48 04:48 05:57 WBC 17.4 H RBC 2.49 L Hgb 7.8 L Hct 23.5 L MCV MCH MCHC RDW 16.0 H Plt Count 69 L Lymph % (Auto) Seg Neutrophils % Seg Neuts % (Manual) Lymphocytes % (Manual) Nucleated RBC % Seg Neutrophils # Seg Neutrophils # Man Lymphocytes # (Manual) Monocytes # (Manual) PT INR ABG pH POC ABG pCO2 POC ABG pO2 ABG pO2 ABG HCO3 ABG O2 Saturation ABG Base Excess ABG Hemoglobin ABG Oxyhemoglobin ABG Sodium ABG Potassium ABG Chloride ABG Glucose Oxyhemoglobin Carboxyhemoglobin Sodium 147 H Potassium 3.5 L Chloride 115.4 H Carbon Dioxide BUN 34 H Creatinine 0.3 L Glucose 154 H POC Glucose 146 H Lactic Acid Calcium 6.1 L Phosphorus 2.00 L Magnesium Total Creatine Kinase Troponin T Total Protein Albumin Triglycerides LDL Cholesterol Direct HDL Cholesterol Arterial Blood Glucose Arterial Blood Ionized Calcium Urine pH Urine WBC (Auto) Vancomycin Trough Salicylates Acetaminophen Crossmatch 11/05/20 11/05/20 11/05/20 11:33 17:52 23:37 WBC RBC Hgb Hct MCV MCH MCHC RDW Plt Count Lymph % (Auto) Seg Neutrophils % Seg Neuts % (Manual) Lymphocytes % (Manual) Nucleated RBC % Seg Neutrophils # Seg Neutrophils # Man Lymphocytes # (Manual) Monocytes # (Manual) PT INR ABG pH POC ABG pCO2 POC ABG pO2 ABG pO2 ABG HCO3 ABG O2 Saturation ABG Base Excess ABG Hemoglobin ABG Oxyhemoglobin ABG Sodium ABG Potassium ABG Chloride ABG Glucose Oxyhemoglobin Carboxyhemoglobin Sodium Potassium Chloride Carbon Dioxide BUN Creatinine Glucose POC Glucose 144 H 136 H 151 H Lactic Acid Calcium Phosphorus Magnesium Total Creatine Kinase Troponin T Total Protein Albumin Triglycerides LDL Cholesterol Direct HDL Cholesterol Arterial Blood Glucose Arterial Blood Ionized Calcium Urine pH Urine WBC (Auto) Vancomycin Trough Salicylates Acetaminophen Crossmatch 11/06/20 11/06/20 11/06/20 05:36 06:45 06:45 WBC 15.0 H RBC 2.33 L Hgb 7.2 L Hct 22.1 L MCV 95 H MCH MCHC RDW 16.2 H Plt Count 103 L Lymph % (Auto) Seg Neutrophils % Seg Neuts % (Manual) Lymphocytes % (Manual) Nucleated RBC % Seg Neutrophils # Seg Neutrophils # Man Lymphocytes # (Manual) Monocytes # (Manual) PT INR ABG pH POC ABG pCO2 POC ABG pO2 ABG pO2 ABG HCO3 ABG O2 Saturation ABG Base Excess ABG Hemoglobin ABG Oxyhemoglobin ABG Sodium ABG Potassium ABG Chloride ABG Glucose Oxyhemoglobin Carboxyhemoglobin Sodium 148 H Potassium Chloride 118.2 H Carbon Dioxide BUN 32 H Creatinine 0.4 L Glucose 153 H POC Glucose 140 H Lactic Acid Calcium 6.4 L Phosphorus 0.90 L* D Magnesium Total Creatine Kinase Troponin T Total Protein 5.0 L Albumin 1.4 L Triglycerides LDL Cholesterol Direct HDL Cholesterol Arterial Blood Glucose Arterial Blood Ionized Calcium Urine pH Urine WBC (Auto) Vancomycin Trough Salicylates Acetaminophen Crossmatch 11/06/20 11/06/20 11/06/20 11:32 17:37 23:19 WBC RBC Hgb Hct MCV MCH MCHC RDW Plt Count Lymph % (Auto) Seg Neutrophils % Seg Neuts % (Manual) Lymphocytes % (Manual) Nucleated RBC % Seg Neutrophils # Seg Neutrophils # Man Lymphocytes # (Manual) Monocytes # (Manual) PT INR ABG pH POC ABG pCO2 POC ABG pO2 ABG pO2 ABG HCO3 ABG O2 Saturation ABG Base Excess ABG Hemoglobin ABG Oxyhemoglobin ABG Sodium ABG Potassium ABG Chloride ABG Glucose Oxyhemoglobin Carboxyhemoglobin Sodium Potassium Chloride Carbon Dioxide BUN Creatinine Glucose POC Glucose 132 H 133 H 145 H Lactic Acid Calcium Phosphorus Magnesium Total Creatine Kinase Troponin T Total Protein Albumin Triglycerides LDL Cholesterol Direct HDL Cholesterol Arterial Blood Glucose Arterial Blood Ionized Calcium Urine pH Urine WBC (Auto) Vancomycin Trough Salicylates Acetaminophen Crossmatch 11/07/20 11/07/20 11/07/20 12:55 16:45 16:45 WBC 12.0 H RBC 3.63 L Hgb 11.4 L D Hct MCV 104 H MCH MCHC 30 L RDW 18.0 H Plt Count 133 L Lymph % (Auto) Seg Neutrophils % Seg Neuts % (Manual) Lymphocytes % (Manual) Nucleated RBC % Seg Neutrophils # Seg Neutrophils # Man Lymphocytes # (Manual) Monocytes # (Manual) PT INR ABG pH POC ABG pCO2 POC ABG pO2 ABG pO2 ABG HCO3 ABG O2 Saturation ABG Base Excess ABG Hemoglobin 7.7 L ABG Oxyhemoglobin ABG Sodium ABG Potassium ABG Chloride ABG Glucose Oxyhemoglobin 94.9 L Carboxyhemoglobin Sodium 149 H Potassium Chloride 119.8 H Carbon Dioxide BUN 31 H Creatinine 0.4 L Glucose 130 H POC Glucose Lactic Acid Calcium 6.5 L Phosphorus Magnesium Total Creatine Kinase Troponin T Total Protein Albumin Triglycerides LDL Cholesterol Direct HDL Cholesterol Arterial Blood Glucose Arterial Blood Ionized Calcium Urine pH Urine WBC (Auto) Vancomycin Trough Salicylates Acetaminophen Crossmatch 11/07/20 11/08/20 11/08/20 17:23 00:12 06:11 WBC RBC Hgb Hct MCV MCH MCHC RDW Plt Count Lymph % (Auto) Seg Neutrophils % Seg Neuts % (Manual) Lymphocytes % (Manual) Nucleated RBC % Seg Neutrophils # Seg Neutrophils # Man Lymphocytes # (Manual) Monocytes # (Manual) PT INR ABG pH POC ABG pCO2 POC ABG pO2 ABG pO2 ABG HCO3 ABG O2 Saturation ABG Base Excess ABG Hemoglobin ABG Oxyhemoglobin ABG Sodium ABG Potassium ABG Chloride ABG Glucose Oxyhemoglobin Carboxyhemoglobin Sodium Potassium Chloride Carbon Dioxide BUN Creatinine Glucose POC Glucose 115 H 129 H 109 H Lactic Acid Calcium Phosphorus Magnesium Total Creatine Kinase Troponin T Total Protein Albumin Triglycerides LDL Cholesterol Direct HDL Cholesterol Arterial Blood Glucose Arterial Blood Ionized Calcium Urine pH Urine WBC (Auto) Vancomycin Trough Salicylates Acetaminophen Crossmatch 11/08/20 11/08/20 11/08/20 17:36 23:49 23:58 WBC RBC Hgb Hct MCV MCH MCHC RDW Plt Count Lymph % (Auto) Seg Neutrophils % Seg Neuts % (Manual) Lymphocytes % (Manual) Nucleated RBC % Seg Neutrophils # Seg Neutrophils # Man Lymphocytes # (Manual) Monocytes # (Manual) PT INR ABG pH POC ABG pCO2 POC ABG pO2 ABG pO2 ABG HCO3 ABG O2 Saturation ABG Base Excess ABG Hemoglobin ABG Oxyhemoglobin ABG Sodium ABG Potassium ABG Chloride ABG Glucose Oxyhemoglobin Carboxyhemoglobin Sodium Potassium Chloride Carbon Dioxide BUN Creatinine Glucose 138 H POC Glucose 38 L 36 L Lactic Acid Calcium Phosphorus Magnesium Total Creatine Kinase Troponin T Total Protein Albumin Triglycerides LDL Cholesterol Direct HDL Cholesterol Arterial Blood Glucose Arterial Blood Ionized Calcium Urine pH Urine WBC (Auto) Vancomycin Trough Salicylates Acetaminophen Crossmatch 11/09/20 11/09/20 11/09/20 05:33 06:00 06:00 WBC 13.1 H RBC 2.35 L Hgb 7.6 L D Hct 22.9 L D MCV 97 H MCH MCHC RDW 16.8 H Plt Count Lymph % (Auto) 9.1 L Seg Neutrophils % 84.8 H Seg Neuts % (Manual) Lymphocytes % (Manual) Nucleated RBC % Seg Neutrophils # 11.1 H Seg Neutrophils # Man Lymphocytes # (Manual) Monocytes # (Manual) PT INR ABG pH POC ABG pCO2 POC ABG pO2 ABG pO2 ABG HCO3 ABG O2 Saturation ABG Base Excess ABG Hemoglobin ABG Oxyhemoglobin ABG Sodium ABG Potassium ABG Chloride ABG Glucose Oxyhemoglobin Carboxyhemoglobin Sodium 150 H Potassium 3.4 L D Chloride 119.2 H Carbon Dioxide BUN 30 H Creatinine 0.4 L Glucose 137 H POC Glucose 58 L Lactic Acid Calcium 7.2 L Phosphorus Magnesium Total Creatine Kinase Troponin T Total Protein Albumin Triglycerides LDL Cholesterol Direct HDL Cholesterol Arterial Blood Glucose Arterial Blood Ionized Calcium Urine pH Urine WBC (Auto) Vancomycin Trough Salicylates Acetaminophen Crossmatch 11/09/20 11/09/20 11/10/20 06:08 22:16 13:46 WBC 16.1 H RBC 2.52 L Hgb 8.1 L Hct 25.2 L MCV 100 H MCH MCHC RDW 18.2 H Plt Count Lymph % (Auto) Seg Neutrophils % Seg Neuts % (Manual) 90.0 H Lymphocytes % (Manual) 3.0 L Nucleated RBC % Seg Neutrophils # Seg Neutrophils # Man 14.5 H Lymphocytes # (Manual) 0.5 L Monocytes # (Manual) 1.1 H PT INR ABG pH POC ABG pCO2 POC ABG pO2 ABG pO2 ABG HCO3 ABG O2 Saturation ABG Base Excess ABG Hemoglobin ABG Oxyhemoglobin ABG Sodium ABG Potassium ABG Chloride ABG Glucose Oxyhemoglobin Carboxyhemoglobin Sodium Potassium Chloride Carbon Dioxide BUN Creatinine Glucose POC Glucose 122 H 120 H Lactic Acid Calcium Phosphorus Magnesium Total Creatine Kinase Troponin T Total Protein Albumin Triglycerides LDL Cholesterol Direct HDL Cholesterol Arterial Blood Glucose Arterial Blood Ionized Calcium Urine pH Urine WBC (Auto) Vancomycin Trough Salicylates Acetaminophen Crossmatch 11/10/20 11/10/20 11/11/20 13:46 15:59 11:43 WBC RBC Hgb Hct MCV MCH MCHC RDW Plt Count Lymph % (Auto) Seg Neutrophils % Seg Neuts % (Manual) Lymphocytes % (Manual) Nucleated RBC % Seg Neutrophils # Seg Neutrophils # Man Lymphocytes # (Manual) Monocytes # (Manual) PT INR ABG pH POC ABG pCO2 POC ABG pO2 ABG pO2 ABG HCO3 ABG O2 Saturation ABG Base Excess ABG Hemoglobin ABG Oxyhemoglobin ABG Sodium ABG Potassium ABG Chloride ABG Glucose Oxyhemoglobin Carboxyhemoglobin Sodium 153 H Potassium Chloride 120.6 H Carbon Dioxide BUN 27 H Creatinine 0.3 L Glucose 112 H POC Glucose 40 L 124 H Lactic Acid Calcium 6.8 L Phosphorus Magnesium Total Creatine Kinase Troponin T Total Protein Albumin Triglycerides LDL Cholesterol Direct HDL Cholesterol Arterial Blood Glucose Arterial Blood Ionized Calcium Urine pH Urine WBC (Auto) Vancomycin Trough Salicylates Acetaminophen Crossmatch 11/11/20 11/11/20 11/11/20 14:38 14:38 14:38 WBC 13.8 H RBC 2.43 L Hgb 7.6 L Hct 24.0 L MCV 99 H MCH MCHC RDW 18.0 H Plt Count Lymph % (Auto) Seg Neutrophils % Seg Neuts % (Manual) Lymphocytes % (Manual) Nucleated RBC % Seg Neutrophils # Seg Neutrophils # Man Lymphocytes # (Manual) Monocytes # (Manual) PT 15.0 H INR 1.18 H ABG pH POC ABG pCO2 POC ABG pO2 ABG pO2 ABG HCO3 ABG O2 Saturation ABG Base Excess ABG Hemoglobin ABG Oxyhemoglobin ABG Sodium ABG Potassium ABG Chloride ABG Glucose Oxyhemoglobin Carboxyhemoglobin Sodium 154 H Potassium 3.1 L D Chloride 122.1 H Carbon Dioxide BUN 26 H Creatinine 0.4 L Glucose 140 H POC Glucose Lactic Acid Calcium 7.3 L Phosphorus Magnesium Total Creatine Kinase Troponin T Total Protein Albumin Triglycerides LDL Cholesterol Direct HDL Cholesterol Arterial Blood Glucose Arterial Blood Ionized Calcium Urine pH Urine WBC (Auto) Vancomycin Trough Salicylates Acetaminophen Crossmatch 11/11/20 11/11/20 11/12/20 18:39 18:42 00:03 WBC RBC Hgb Hct MCV MCH MCHC RDW Plt Count Lymph % (Auto) Seg Neutrophils % Seg Neuts % (Manual) Lymphocytes % (Manual) Nucleated RBC % Seg Neutrophils # Seg Neutrophils # Man Lymphocytes # (Manual) Monocytes # (Manual) PT INR ABG pH POC ABG pCO2 POC ABG pO2 ABG pO2 ABG HCO3 ABG O2 Saturation ABG Base Excess ABG Hemoglobin ABG Oxyhemoglobin ABG Sodium ABG Potassium ABG Chloride ABG Glucose Oxyhemoglobin Carboxyhemoglobin Sodium Potassium Chloride Carbon Dioxide BUN Creatinine Glucose POC Glucose 45 L 66 L 108 H Lactic Acid Calcium Phosphorus Magnesium Total Creatine Kinase Troponin T Total Protein Albumin Triglycerides LDL Cholesterol Direct HDL Cholesterol Arterial Blood Glucose Arterial Blood Ionized Calcium Urine pH Urine WBC (Auto) Vancomycin Trough Salicylates Acetaminophen Crossmatch 11/12/20 11/12/20 11/12/20 05:44 08:33 08:33 WBC 13.4 H RBC 2.35 L Hgb 7.5 L Hct 23.7 L MCV 101 H MCH MCHC RDW 19.7 H Plt Count Lymph % (Auto) Seg Neutrophils % Seg Neuts % (Manual) Lymphocytes % (Manual) Nucleated RBC % Seg Neutrophils # Seg Neutrophils # Man Lymphocytes # (Manual) Monocytes # (Manual) PT INR ABG pH POC ABG pCO2 POC ABG pO2 ABG pO2 ABG HCO3 ABG O2 Saturation ABG Base Excess ABG Hemoglobin ABG Oxyhemoglobin ABG Sodium ABG Potassium ABG Chloride ABG Glucose Oxyhemoglobin Carboxyhemoglobin Sodium 154 H Potassium 2.9 L* Chloride 121.4 H Carbon Dioxide BUN 26 H Creatinine 0.4 L Glucose 153 H POC Glucose 114 H Lactic Acid Calcium 7.3 L Phosphorus Magnesium Total Creatine Kinase Troponin T Total Protein Albumin Triglycerides LDL Cholesterol Direct HDL Cholesterol Arterial Blood Glucose Arterial Blood Ionized Calcium Urine pH Urine WBC (Auto) Vancomycin Trough Salicylates Acetaminophen Crossmatch 11/12/20 11/12/20 11/13/20 11:38 17:17 05:28 WBC RBC Hgb Hct MCV MCH MCHC RDW Plt Count Lymph % (Auto) Seg Neutrophils % Seg Neuts % (Manual) Lymphocytes % (Manual) Nucleated RBC % Seg Neutrophils # Seg Neutrophils # Man Lymphocytes # (Manual) Monocytes # (Manual) PT INR ABG pH POC ABG pCO2 51.4 H POC ABG pO2 41.7 L ABG pO2 ABG HCO3 ABG O2 Saturation ABG Base Excess ABG Hemoglobin 9.1 L ABG Oxyhemoglobin 72.2 L ABG Sodium 151.1 H ABG Potassium 3.2 L ABG Chloride 122.0 H ABG Glucose 191 H Oxyhemoglobin Carboxyhemoglobin Sodium Potassium Chloride Carbon Dioxide BUN Creatinine Glucose POC Glucose 125 H 127 H Lactic Acid Calcium Phosphorus Magnesium Total Creatine Kinase Troponin T Total Protein Albumin Triglycerides LDL Cholesterol Direct HDL Cholesterol Arterial Blood Glucose 191 H Arterial Blood Ionized Calcium Urine pH Urine WBC (Auto) Vancomycin Trough Salicylates Acetaminophen Crossmatch 11/13/20 11/13/20 11/13/20 10:46 23:15 23:15 WBC 12.2 H RBC 2.41 L Hgb 7.7 L Hct 24.5 L MCV 102 H MCH MCHC RDW 23.0 H Plt Count Lymph % (Auto) Seg Neutrophils % Seg Neuts % (Manual) Lymphocytes % (Manual) Nucleated RBC % Seg Neutrophils # Seg Neutrophils # Man Lymphocytes # (Manual) Monocytes # (Manual) PT INR ABG pH POC ABG pCO2 POC ABG pO2 ABG pO2 ABG HCO3 ABG O2 Saturation ABG Base Excess ABG Hemoglobin ABG Oxyhemoglobin ABG Sodium ABG Potassium ABG Chloride ABG Glucose Oxyhemoglobin Carboxyhemoglobin Sodium Potassium Chloride Carbon Dioxide BUN Creatinine Glucose POC Glucose 153 H Lactic Acid Calcium Phosphorus Magnesium Total Creatine Kinase Troponin T 0.123 H* Total Protein Albumin Triglycerides LDL Cholesterol Direct HDL Cholesterol Arterial Blood Glucose Arterial Blood Ionized Calcium Urine pH Urine WBC (Auto) Vancomycin Trough Salicylates Acetaminophen Crossmatch 11/13/20 11/13/20 11/14/20 23:15 Unknown 05:26 WBC RBC Hgb Hct MCV MCH MCHC RDW Plt Count Lymph % (Auto) Seg Neutrophils % Seg Neuts % (Manual) Lymphocytes % (Manual) Nucleated RBC % Seg Neutrophils # Seg Neutrophils # Man Lymphocytes # (Manual) Monocytes # (Manual) PT INR ABG pH 7.295 L POC ABG pCO2 56.0 H POC ABG pO2 49.1 L ABG pO2 ABG HCO3 ABG O2 Saturation ABG Base Excess ABG Hemoglobin 8.3 L ABG Oxyhemoglobin 77.1 L ABG Sodium 150.5 H ABG Potassium 3.3 L ABG Chloride 121.0 H ABG Glucose 187 H Oxyhemoglobin Carboxyhemoglobin Sodium 152 H Potassium 3.3 L Chloride 117.8 H Carbon Dioxide BUN 25 H Creatinine 0.4 L Glucose 123 H POC Glucose 46 L Lactic Acid Calcium 7.5 L Phosphorus Magnesium Total Creatine Kinase Troponin T Total Protein Albumin Triglycerides LDL Cholesterol Direct HDL Cholesterol Arterial Blood Glucose 187 H Arterial Blood Ionized Calcium Urine pH Urine WBC (Auto) Vancomycin Trough Salicylates Acetaminophen Crossmatch 11/14/20 11/14/20 11/14/20 06:26 22:26 22:26 WBC RBC 2.75 L Hgb 9.0 L Hct 27.8 L MCV 101 H MCH 33 H MCHC RDW 22.8 H Plt Count Lymph % (Auto) Seg Neutrophils % Seg Neuts % (Manual) Lymphocytes % (Manual) Nucleated RBC % Seg Neutrophils # Seg Neutrophils # Man Lymphocytes # (Manual) Monocytes # (Manual) PT INR ABG pH POC ABG pCO2 POC ABG pO2 ABG pO2 ABG HCO3 ABG O2 Saturation ABG Base Excess ABG Hemoglobin ABG Oxyhemoglobin ABG Sodium ABG Potassium ABG Chloride ABG Glucose Oxyhemoglobin Carboxyhemoglobin Sodium 147 H Potassium 3.3 L Chloride 114.3 H Carbon Dioxide BUN 23 H Creatinine 0.3 L Glucose 209 H POC Glucose 135 H Lactic Acid Calcium 7.4 L Phosphorus Magnesium Total Creatine Kinase Troponin T Total Protein Albumin Triglycerides LDL Cholesterol Direct HDL Cholesterol Arterial Blood Glucose Arterial Blood Ionized Calcium Urine pH Urine WBC (Auto) Vancomycin Trough Salicylates Acetaminophen Crossmatch 11/14/20 11/15/20 11/15/20 23:22 04:28 05:57 WBC RBC Hgb Hct MCV MCH MCHC RDW Plt Count Lymph % (Auto) Seg Neutrophils % Seg Neuts % (Manual) Lymphocytes % (Manual) Nucleated RBC % Seg Neutrophils # Seg Neutrophils # Man Lymphocytes # (Manual) Monocytes # (Manual) PT INR ABG pH POC ABG pCO2 POC ABG pO2 ABG pO2 ABG HCO3 ABG O2 Saturation ABG Base Excess ABG Hemoglobin ABG Oxyhemoglobin ABG Sodium ABG Potassium ABG Chloride ABG Glucose Oxyhemoglobin Carboxyhemoglobin Sodium 152 H Potassium Chloride 118.1 H Carbon Dioxide BUN 22 H Creatinine 0.3 L Glucose 190 H POC Glucose 136 H 151 H Lactic Acid Calcium 7.5 L Phosphorus Magnesium Total Creatine Kinase Troponin T Total Protein Albumin Triglycerides LDL Cholesterol Direct HDL Cholesterol Arterial Blood Glucose Arterial Blood Ionized Calcium Urine pH Urine WBC (Auto) Vancomycin Trough Salicylates Acetaminophen Crossmatch 11/15/20 11/15/20 11/15/20 11:40 16:56 21:53 WBC RBC Hgb Hct MCV MCH MCHC RDW Plt Count Lymph % (Auto) Seg Neutrophils % Seg Neuts % (Manual) Lymphocytes % (Manual) Nucleated RBC % Seg Neutrophils # Seg Neutrophils # Man Lymphocytes # (Manual) Monocytes # (Manual) PT INR ABG pH 7.457 H POC ABG pCO2 POC ABG pO2 ABG pO2 48.3 L ABG HCO3 26.1 H ABG O2 Saturation 82.9 L ABG Base Excess ABG Hemoglobin 9.7 L ABG Oxyhemoglobin ABG Sodium ABG Potassium ABG Chloride ABG Glucose Oxyhemoglobin 81.0 L Carboxyhemoglobin Sodium Potassium Chloride Carbon Dioxide BUN Creatinine Glucose POC Glucose 129 H 115 H Lactic Acid Calcium Phosphorus Magnesium Total Creatine Kinase Troponin T Total Protein Albumin Triglycerides LDL Cholesterol Direct HDL Cholesterol Arterial Blood Glucose Arterial Blood Ionized Calcium Urine pH Urine WBC (Auto) Vancomycin Trough Salicylates Acetaminophen Crossmatch 11/15/20 11/16/20 11/16/20 23:12 00:07 00:09 WBC RBC Hgb Hct MCV MCH MCHC RDW Plt Count Lymph % (Auto) Seg Neutrophils % Seg Neuts % (Manual) Lymphocytes % (Manual) Nucleated RBC % Seg Neutrophils # Seg Neutrophils # Man Lymphocytes # (Manual) Monocytes # (Manual) PT INR ABG pH POC ABG pCO2 POC ABG pO2 ABG pO2 95.1 H ABG HCO3 26.6 H ABG O2 Saturation ABG Base Excess ABG Hemoglobin 7.5 L ABG Oxyhemoglobin ABG Sodium ABG Potassium ABG Chloride ABG Glucose Oxyhemoglobin Carboxyhemoglobin Sodium Potassium Chloride Carbon Dioxide BUN Creatinine Glucose POC Glucose 13 L 153 H Lactic Acid Calcium Phosphorus Magnesium Total Creatine Kinase Troponin T Total Protein Albumin Triglycerides LDL Cholesterol Direct HDL Cholesterol Arterial Blood Glucose Arterial Blood Ionized Calcium Urine pH Urine WBC (Auto) Vancomycin Trough Salicylates Acetaminophen Crossmatch 11/16/20 11/16/20 11/16/20 03:43 04:00 04:00 WBC RBC 2.33 L Hgb 7.7 L Hct 24.5 L MCV 105 H MCH 33 H MCHC 31 L RDW 22.9 H Plt Count Lymph % (Auto) Seg Neutrophils % Seg Neuts % (Manual) Lymphocytes % (Manual) Nucleated RBC % Seg Neutrophils # Seg Neutrophils # Man Lymphocytes # (Manual) Monocytes # (Manual) PT INR ABG pH 7.348 L POC ABG pCO2 POC ABG pO2 ABG pO2 91.6 H ABG HCO3 26.3 H ABG O2 Saturation ABG Base Excess ABG Hemoglobin 7.3 L ABG Oxyhemoglobin ABG Sodium ABG Potassium ABG Chloride ABG Glucose Oxyhemoglobin Carboxyhemoglobin Sodium 148 H Potassium 3.5 L Chloride 115.9 H Carbon Dioxide BUN Creatinine 0.4 L Glucose 195 H POC Glucose Lactic Acid Calcium 7.6 L Phosphorus Magnesium Total Creatine Kinase Troponin T Total Protein Albumin Triglycerides LDL Cholesterol Direct HDL Cholesterol Arterial Blood Glucose Arterial Blood Ionized Calcium Urine pH Urine WBC (Auto) Vancomycin Trough Salicylates Acetaminophen Crossmatch 11/16/20 11/16/20 11/16/20 05:16 07:40 12:10 WBC RBC Hgb Hct MCV MCH MCHC RDW Plt Count Lymph % (Auto) Seg Neutrophils % Seg Neuts % (Manual) Lymphocytes % (Manual) Nucleated RBC % Seg Neutrophils # Seg Neutrophils # Man Lymphocytes # (Manual) Monocytes # (Manual) PT INR ABG pH POC ABG pCO2 POC ABG pO2 ABG pO2 ABG HCO3 ABG O2 Saturation ABG Base Excess ABG Hemoglobin ABG Oxyhemoglobin ABG Sodium ABG Potassium ABG Chloride ABG Glucose Oxyhemoglobin Carboxyhemoglobin Sodium Potassium Chloride Carbon Dioxide BUN Creatinine Glucose POC Glucose 61 L 122 H 140 H Lactic Acid Calcium Phosphorus Magnesium Total Creatine Kinase Troponin T Total Protein Albumin Triglycerides LDL Cholesterol Direct HDL Cholesterol Arterial Blood Glucose Arterial Blood Ionized Calcium Urine pH Urine WBC (Auto) Vancomycin Trough Salicylates Acetaminophen Crossmatch 11/16/20 11/16/20 11/17/20 17:14 23:40 04:30 WBC RBC Hgb Hct MCV MCH MCHC RDW Plt Count Lymph % (Auto) Seg Neutrophils % Seg Neuts % (Manual) Lymphocytes % (Manual) Nucleated RBC % Seg Neutrophils # Seg Neutrophils # Man Lymphocytes # (Manual) Monocytes # (Manual) PT INR ABG pH 7.470 H POC ABG pCO2 POC ABG pO2 75.4 L ABG pO2 ABG HCO3 ABG O2 Saturation ABG Base Excess ABG Hemoglobin 7 L ABG Oxyhemoglobin ABG Sodium ABG Potassium ABG Chloride 116.0 H ABG Glucose 161 H Oxyhemoglobin Carboxyhemoglobin Sodium Potassium Chloride Carbon Dioxide BUN Creatinine Glucose POC Glucose 139 H 151 H Lactic Acid Calcium Phosphorus Magnesium Total Creatine Kinase Troponin T Total Protein Albumin Triglycerides LDL Cholesterol Direct HDL Cholesterol Arterial Blood Glucose 161 H Arterial Blood Ionized Calcium Urine pH Urine WBC (Auto) Vancomycin Trough Salicylates Acetaminophen Crossmatch 11/17/20 11/17/20 11/17/20 09:50 09:50 11:10 WBC RBC 2.02 L Hgb 6.6 L Hct 20.2 L MCV 100 H MCH 33 H MCHC RDW 22.4 H Plt Count Lymph % (Auto) Seg Neutrophils % Seg Neuts % (Manual) Lymphocytes % (Manual) Nucleated RBC % Seg Neutrophils # Seg Neutrophils # Man Lymphocytes # (Manual) Monocytes # (Manual) PT INR ABG pH POC ABG pCO2 POC ABG pO2 ABG pO2 ABG HCO3 ABG O2 Saturation ABG Base Excess ABG Hemoglobin ABG Oxyhemoglobin ABG Sodium ABG Potassium ABG Chloride ABG Glucose Oxyhemoglobin Carboxyhemoglobin Sodium Potassium Chloride 111.8 H Carbon Dioxide BUN 23 H Creatinine 0.4 L Glucose 142 H POC Glucose Lactic Acid Calcium 7.3 L Phosphorus Magnesium Total Creatine Kinase Troponin T Total Protein Albumin Triglycerides LDL Cholesterol Direct HDL Cholesterol Arterial Blood Glucose Arterial Blood Ionized Calcium Urine pH Urine WBC (Auto) Vancomycin Trough Salicylates Acetaminophen Crossmatch See Detail 11/17/20 11/17/20 11/17/20 11:52 11:57 23:22 WBC RBC Hgb Hct MCV MCH MCHC RDW Plt Count Lymph % (Auto) Seg Neutrophils % Seg Neuts % (Manual) Lymphocytes % (Manual) Nucleated RBC % Seg Neutrophils # Seg Neutrophils # Man Lymphocytes # (Manual) Monocytes # (Manual) PT INR ABG pH POC ABG pCO2 POC ABG pO2 ABG pO2 ABG HCO3 ABG O2 Saturation ABG Base Excess ABG Hemoglobin ABG Oxyhemoglobin ABG Sodium ABG Potassium ABG Chloride ABG Glucose Oxyhemoglobin Carboxyhemoglobin Sodium Potassium Chloride Carbon Dioxide BUN Creatinine Glucose POC Glucose 42 L 114 H 63 L Lactic Acid Calcium Phosphorus Magnesium Total Creatine Kinase Troponin T Total Protein Albumin Triglycerides LDL Cholesterol Direct HDL Cholesterol Arterial Blood Glucose Arterial Blood Ionized Calcium Urine pH Urine WBC (Auto) Vancomycin Trough Salicylates Acetaminophen Crossmatch 11/17/20 11/18/20 11/18/20 23:27 04:06 04:45 WBC RBC 2.36 L Hgb 7.4 L Hct 23.4 L MCV 99 H MCH MCHC RDW 21.6 H Plt Count Lymph % (Auto) Seg Neutrophils % Seg Neuts % (Manual) Lymphocytes % (Manual) Nucleated RBC % Seg Neutrophils # Seg Neutrophils # Man Lymphocytes # (Manual) Monocytes # (Manual) PT INR ABG pH POC ABG pCO2 POC ABG pO2 67.7 L ABG pO2 ABG HCO3 ABG O2 Saturation ABG Base Excess ABG Hemoglobin 8.3 L ABG Oxyhemoglobin ABG Sodium ABG Potassium ABG Chloride 112.0 H ABG Glucose 143 H Oxyhemoglobin Carboxyhemoglobin Sodium Potassium Chloride Carbon Dioxide BUN Creatinine Glucose POC Glucose 124 H Lactic Acid Calcium Phosphorus Magnesium Total Creatine Kinase Troponin T Total Protein Albumin Triglycerides LDL Cholesterol Direct HDL Cholesterol Arterial Blood Glucose 143 H Arterial Blood Ionized Calcium 4.5 L Urine pH Urine WBC (Auto) Vancomycin Trough Salicylates Acetaminophen Crossmatch 11/18/20 04:45 WBC RBC Hgb Hct MCV MCH MCHC RDW Plt Count Lymph % (Auto) Seg Neutrophils % Seg Neuts % (Manual) Lymphocytes % (Manual) Nucleated RBC % Seg Neutrophils # Seg Neutrophils # Man Lymphocytes # (Manual) Monocytes # (Manual) PT INR ABG pH POC ABG pCO2 POC ABG pO2 ABG pO2 ABG HCO3 ABG O2 Saturation ABG Base Excess ABG Hemoglobin ABG Oxyhemoglobin ABG Sodium ABG Potassium ABG Chloride ABG Glucose Oxyhemoglobin Carboxyhemoglobin Sodium Potassium Chloride 107.9 H Carbon Dioxide BUN 23 H Creatinine 0.4 L Glucose 139 H POC Glucose Lactic Acid Calcium 7.6 L Phosphorus Magnesium Total Creatine Kinase Troponin T Total Protein Albumin Triglycerides LDL Cholesterol Direct HDL Cholesterol Arterial Blood Glucose Arterial Blood Ionized Calcium Urine pH Urine WBC (Auto) Vancomycin Trough Salicylates Acetaminophen Crossmatch Allied health notes reviewed: nursing
[2020-11-18] MEDS: VANCOMYCIN 2,000 MG in SODIUM CHLORIDE 0.9% 500 ML 500 ML IV SCH (13:54)
--- NOTE | 2020-11-18 14:28 | Progress Note ---
Assessment and Plan Cultures: 10/26/2020 tracheal aspirate culture: MRSA 10/26/2020 blood culture: Proteus 10/27/2020 urine culture: Mixed hien 07/17/2021 tracheal aspirate culture staph aureus A/P: 75-year-old male, [facility] resident with seizure disorder, hypertension, depression, hyperlipidemia, chronic encephalopathy was sent to the hospital with worsening mental status: #Septic shock: probably from pneumonia. #Acute hypoxic respiratory failure: back on the vent. #Proteus bacteremia: multifactorial from infected sacral decubitus ulcer, bilateral pneumonia, UTI. S/P abx. #Acute diarrhea: ? C. difficile, improved on vancomycin p.o. Diarrhea improved, Cdiff test was not able to be done. #Necrotic, infected sacral decubitus ulcer: underwent debridement 10/29/2020, also noted to have brittle coccyx consistent with osteomyelitis. #UTI: UA with significant pyuria. #FAAZL: resolved #PVD: SFA occlusion. Not a candidate for revascularization per vascular Recs: Continue vancomycin as empiric therapy for bilateral pneumonia - planned 8 days Extend course of p.o. vancomycin due to initiation of systemic antibiotics Overall, guarded prognosis Eliezer Jack MD [facility] ([facility] O: [phone] F: [phone] Subjective Date of service: 11/18/20 Principal diagnosis: Acute Resp Fail, Septic Shock, Sacral Ulcer, AF with RVR Interval history: Afebrile, remains on vent - for trach/PEG Objective - Exam Narrative Exam: General appearance: alert in NAD on BiPAP Eyes: anicteric sclerae, moist conjunctivae; no lid-lag; PERRLA HENT: Normocephalic, Atraumatic; normal external ears, nares openNeck: supple, tracheal midline Lungs: Diminished breath sound bilaterally CV: RRR Abdomen: Soft, nontender Extremities: Bilateral upper extremity and lower extremity edema Skin: No rash. Extensive scrotal edema Psych: Not agitated Neuro: Alert, open eyes, follows commands - Constitutional Vitals: Vital Signs Temp Pulse Resp BP Pulse Ox 98.3 F 105 H 10 L 116/74 99 11/18/20 08:00 11/18/20 14:00 11/18/20 14:00 11/18/20 14:00 11/18/20 14:00 Temperature -Last 24 Hours Temperature 98.3 F Temperature 98.6 F Temperature 98.6 F Temperature 98 F Temperature 98 F Temperature 97 F Temperature 97.9 F Temperature 98 F Temperature 98.2 F Temperature 97 F - Labs CBC & Chem 7: 11/18/20 04:45 11/18/20 04:45 Labs: Abnormal lab results 11/17/20 11/17/20 11/17/20 Range/Units 11:10 11:52 11:57 RBC (3.65-5.03) M/mm3 Hgb (11.8-15.2) gm/dl Hct (35.5-45.6) % MCV (84-94) fl RDW (13.2-15.2) % POC ABG pO2 (83-108) mmHg ABG Hemoglobin (12.0-17.5) ABG Chloride (98-107) mmol/L ABG Glucose (65-95) mg/dL Chloride (98-107) mmol/L BUN (9-20) mg/dL Creatinine (0.8-1.3) mg/dL Glucose (75-100) mg/dL POC Glucose 42 L 114 H (70-105) mg/dL Calcium (8.4-10.2) mg/dL Arterial Blood Glucose (65-95) mg/dL Arterial Blood Ionized Calcium (4.6-5.3) mg/dL Crossmatch See Detail 11/17/20 11/17/20 11/18/20 Range/Units 23:22 23:27 04:06 RBC (3.65-5.03) M/mm3 Hgb (11.8-15.2) gm/dl Hct (35.5-45.6) % MCV (84-94) fl RDW (13.2-15.2) % POC ABG pO2 67.7 L (83-108) mmHg ABG Hemoglobin 8.3 L (12.0-17.5) ABG Chloride 112.0 H (98-107) mmol/L ABG Glucose 143 H (65-95) mg/dL Chloride (98-107) mmol/L BUN (9-20) mg/dL Creatinine (0.8-1.3) mg/dL Glucose (75-100) mg/dL POC Glucose 63 L 124 H (70-105) mg/dL Calcium (8.4-10.2) mg/dL Arterial Blood Glucose 143 H (65-95) mg/dL Arterial Blood Ionized Calcium 4.5 L (4.6-5.3) mg/dL Crossmatch 11/18/20 11/18/20 11/18/20 Range/Units 04:45 04:45 05:56 RBC 2.36 L (3.65-5.03) M/mm3 Hgb 7.4 L (11.8-15.2) gm/dl Hct 23.4 L (35.5-45.6) % MCV 99 H (84-94) fl RDW 21.6 H (13.2-15.2) % POC ABG pO2 (83-108) mmHg ABG Hemoglobin (12.0-17.5) ABG Chloride (98-107) mmol/L ABG Glucose (65-95) mg/dL Chloride 107.9 H (98-107) mmol/L BUN 23 H (9-20) mg/dL Creatinine 0.4 L (0.8-1.3) mg/dL Glucose 139 H (75-100) mg/dL POC Glucose 133 H (70-105) mg/dL Calcium 7.6 L (8.4-10.2) mg/dL Arterial Blood Glucose (65-95) mg/dL Arterial Blood Ionized Calcium (4.6-5.3) mg/dL Crossmatch
--- NOTE | 2020-11-18 15:15 | Progress Note ---
Assessment and Plan - Patient Problems (1) Chronic respiratory failure Current Visit: Yes Status: Acute Plan to address problem: 1) Transfuse to hgb > 8.0. D/w blood bank. 2) Open tracheostomy and PEG on 11/21/20 Subjective Date of service: 11/18/20 Patient Reports: Positive: no new complaints Objective Vital Signs - 12hr 11/18/20 11/18/20 11/18/20 03:15 03:30 03:40 Temperature Pulse Rate 111 H 104 H 102 H Pulse Rate [ Anterior Bilateral Throughout] Pulse Rate [ From Monitor] Respiratory 16 11 L 2 L Rate Respiratory Rate [Anterior Bilateral Throughout] Blood Pressure 123/63 115/66 107/66 O2 Sat by Pulse 99 98 99 Oximetry 11/18/20 11/18/20 11/18/20 03:45 04:00 04:15 Temperature 98.6 F Pulse Rate 106 H 97 H 100 H Pulse Rate [ Anterior Bilateral Throughout] Pulse Rate [ 101 H From Monitor] Respiratory 17 14 17 Rate Respiratory Rate [Anterior Bilateral Throughout] Blood Pressure 108/69 107/69 105/70 O2 Sat by Pulse 99 98 99 Oximetry 11/18/20 11/18/20 11/18/20 04:30 04:45 05:00 Temperature Pulse Rate 108 H 93 H 98 H Pulse Rate [ Anterior Bilateral Throughout] Pulse Rate [ From Monitor] Respiratory 17 14 16 Rate Respiratory Rate [Anterior Bilateral Throughout] Blood Pressure 101/67 100/68 105/63 O2 Sat by Pulse 98 97 99 Oximetry 11/18/20 11/18/20 11/18/20 05:15 05:31 05:45 Temperature Pulse Rate 107 H 111 H 114 H Pulse Rate [ Anterior Bilateral Throughout] Pulse Rate [ From Monitor] Respiratory 25 H 15 17 Rate Respiratory Rate [Anterior Bilateral Throughout] Blood Pressure 116/80 132/84 125/88 O2 Sat by Pulse 97 89 96 Oximetry 11/18/20 11/18/20 11/18/20 06:00 06:15 06:30 Temperature Pulse Rate 107 H 99 H 117 H Pulse Rate [ Anterior Bilateral Throughout] Pulse Rate [ From Monitor] Respiratory 16 15 15 Rate Respiratory Rate [Anterior Bilateral Throughout] Blood Pressure 129/79 110/69 103/63 O2 Sat by Pulse 99 100 100 Oximetry 11/18/20 11/18/20 11/18/20 06:45 07:01 07:15 Temperature Pulse Rate 104 H 91 H 95 H Pulse Rate [ Anterior Bilateral Throughout] Pulse Rate [ From Monitor] Respiratory 13 18 11 L Rate Respiratory Rate [Anterior Bilateral Throughout] Blood Pressure 111/70 113/74 119/69 O2 Sat by Pulse 100 100 100 Oximetry 11/18/20 11/18/20 11/18/20 07:30 07:45 08:00 Temperature 98.3 F Pulse Rate 102 H 107 H 104 H Pulse Rate [ Anterior Bilateral Throughout] Pulse Rate [ 93 H From Monitor] Respiratory 14 18 19 Rate Respiratory Rate [Anterior Bilateral Throughout] Blood Pressure 121/76 125/72 128/81 O2 Sat by Pulse 100 100 100 Oximetry 11/18/20 11/18/20 11/18/20 08:15 08:20 08:30 Temperature Pulse Rate 105 H 96 H 102 H Pulse Rate [ 86 Anterior Bilateral Throughout] Pulse Rate [ From Monitor] Respiratory 14 20 Rate Respiratory 20 Rate [Anterior Bilateral Throughout] Blood Pressure 118/74 118/74 124/73 O2 Sat by Pulse 100 100 98 Oximetry 11/18/20 11/18/20 11/18/20 08:45 09:00 09:15 Temperature Pulse Rate 99 H 98 H 109 H Pulse Rate [ Anterior Bilateral Throughout] Pulse Rate [ From Monitor] Respiratory 21 20 15 Rate Respiratory Rate [Anterior Bilateral Throughout] Blood Pressure 127/71 131/72 138/78 O2 Sat by Pulse 99 98 98 Oximetry 11/18/20 11/18/20 11/18/20 09:30 09:45 10:00 Temperature Pulse Rate 104 H 107 H 112 H Pulse Rate [ Anterior Bilateral Throughout] Pulse Rate [ From Monitor] Respiratory 18 15 11 L Rate Respiratory Rate [Anterior Bilateral Throughout] Blood Pressure 128/77 120/80 130/81 O2 Sat by Pulse 97 100 100 Oximetry 11/18/20 11/18/20 11/18/20 10:15 10:30 10:45 Temperature Pulse Rate 106 H 107 H 94 H Pulse Rate [ Anterior Bilateral Throughout] Pulse Rate [ From Monitor] Respiratory 17 20 13 Rate Respiratory Rate [Anterior Bilateral Throughout] Blood Pressure 130/78 123/72 111/64 O2 Sat by Pulse 99 100 99 Oximetry 11/18/20 11/18/20 11/18/20 11:00 11:15 11:30 Temperature Pulse Rate 97 H 95 H 97 H Pulse Rate [ Anterior Bilateral Throughout] Pulse Rate [ From Monitor] Respiratory 14 21 21 Rate Respiratory Rate [Anterior Bilateral Throughout] Blood Pressure 116/67 122/66 116/69 O2 Sat by Pulse 100 100 100 Oximetry 11/18/20 11/18/20 11/18/20 11:45 12:00 12:01 Temperature Pulse Rate 101 H 94 H 98 H Pulse Rate [ Anterior Bilateral Throughout] Pulse Rate [ 93 H From Monitor] Respiratory 0 L 20 13 Rate Respiratory Rate [Anterior Bilateral Throughout] Blood Pressure 119/65 126/71 O2 Sat by Pulse 99 100 100 Oximetry 11/18/20 11/18/20 11/18/20 12:15 12:30 12:45 Temperature Pulse Rate 105 H 108 H 106 H Pulse Rate [ Anterior Bilateral Throughout] Pulse Rate [ From Monitor] Respiratory 11 L 11 L 12 Rate Respiratory Rate [Anterior Bilateral Throughout] Blood Pressure 136/75 121/79 119/77 O2 Sat by Pulse 100 100 100 Oximetry 11/18/20 11/18/20 11/18/20 13:00 13:15 13:30 Temperature Pulse Rate 101 H 99 H 102 H Pulse Rate [ Anterior Bilateral Throughout] Pulse Rate [ From Monitor] Respiratory 19 20 16 Rate Respiratory Rate [Anterior Bilateral Throughout] Blood Pressure 125/71 133/71 126/62 O2 Sat by Pulse 100 100 100 Oximetry 11/18/20 11/18/20 11/18/20 13:33 13:45 14:00 Temperature Pulse Rate 103 H 108 H 105 H Pulse Rate [ 102 H Anterior Bilateral Throughout] Pulse Rate [ From Monitor] Respiratory 4 L 12 10 L Rate Respiratory 20 Rate [Anterior Bilateral Throughout] Blood Pressure 131/86 131/86 116/74 O2 Sat by Pulse 100 100 99 Oximetry - Abdomen soft, bowel sounds normal - Labs 11/18/20 04:45 11/18/20 04:45 Diabetes panel 11/18/20 Range/Units 04:45 Sodium 141 (137-145) mmol/L Potassium 4.3 (3.6-5.0) mmol/L Chloride 107.9 H (98-107) mmol/L Carbon Dioxide 30 (22-30) mmol/L BUN 23 H (9-20) mg/dL Creatinine 0.4 L (0.8-1.3) mg/dL Glucose 139 H (75-100) mg/dL Calcium 7.6 L (8.4-10.2) mg/dL Calcium panel 11/18/20 Range/Units 04:45 Calcium 7.6 L (8.4-10.2) mg/dL Pituitary panel 11/18/20 Range/Units 04:45 Sodium 141 (137-145) mmol/L Potassium 4.3 (3.6-5.0) mmol/L Chloride 107.9 H (98-107) mmol/L Carbon Dioxide 30 (22-30) mmol/L BUN 23 H (9-20) mg/dL Creatinine 0.4 L (0.8-1.3) mg/dL Glucose 139 H (75-100) mg/dL Calcium 7.6 L (8.4-10.2) mg/dL Adrenal panel 11/18/20 Range/Units 04:45 Sodium 141 (137-145) mmol/L Potassium 4.3 (3.6-5.0) mmol/L Chloride 107.9 H (98-107) mmol/L Carbon Dioxide 30 (22-30) mmol/L BUN 23 H (9-20) mg/dL Creatinine 0.4 L (0.8-1.3) mg/dL Glucose 139 H (75-100) mg/dL Calcium 7.6 L (8.4-10.2) mg/dL
[2020-11-18] MEDS ORDERED: SODIUM CHLORIDE 0.9% 500 ML 500 ML IV NR (17:29)
--- NOTE | 2020-11-18 17:34 | Progress Note ---
<KARIHALIE RavenMinnie - Last Filed: 11/18/20 17:32> Assessment and Plan Assessment and plan: -ID, cardiology, CCM, surgery, vascular surgery, nephrology, surgery, WOCN consulted, appreciate recommendations -FAZAL, pneumonia, infected sacral wound, acute respiratory failure, leukocytosis, hypotension requiring vasopressor support -Antibiotic therapy -Trend CBC and BMP -10/26 tracheal aspirate with MRSA, 10/26 blood cultures x2 with Proteus mirabilis, 10/27 urine culture possible contaminant, 11/15: Trach aspirate positive for staph coccus aureus, 11/06 occult stool positive -On mechanical ventilation, wean as tolerated, VAP bundle, CPAP trials as tolerated -Wound care per nursing -Sedated with fentanyl -Midodrine, norepinephrine as needed -Vancomycin -S/p IVF resuscitation -HIT panel negaitve -Surgery consulted for trach/PEG placement (planned 11/21/2020); transfuse 1 unit PRBC on 11/18 per surgery request for goal hemoglobin greater than 8. GI/DVT prophylaxis: Lovenox subq, SCDs to bilateral legs while in bed, PPI Dispo: ICU The high probability of a clinically significant, sudden or life threatening deterioration of the [pulmonary, cardiac] system(s) required my full and direct attention, intervention and personal management. The aggregate critical care time was [35] minutes. This time is in addition to time spent performing reported procedures but includes the following: [X] Data Review and interpretation [X] Patient assessment and monitoring of vital signs [X] Documentation [X] Medication orders and management History Interval history: This is a 75-year-old male who is a retirement resident with seizure disorder, hypertension, depression, hyperlipidemia, hypoglycemia, dysphagia, and encephalopathy who presents to the emergency department on 10/26 via EMS for tachypnea, dry mucous membranes and hypoxia. Patient was hypotensive, febrile to 103 degrees and hypoxic in the emergency department therefore he was intubated and central IV access was obtained. Patient received 3.5 L of IV fluid in the emergency department. Patient was admitted to the hospital service with consults to CCM, surgery, WOCN and ID for Sepsis, acute kidney injury, urinary tract infection, acute respiratory failure, electrolyte imbalances, infected sacral wound and bilateral pneumonia. Sepsis Acute respiratory failure with Hypoxia Cardiovascular shock Infected sacral wound s/p debridement with surgery Generalized anasarca possible acute diastolic congestive heart failure Anemia s/p 3 units prbc Bilateral pleural effusion Right and left lung atelectasis secondary to mucous plug Proteus bacteremia MRSA pneumonia Urine tract infection Acute kidney injury with vasomotor Nephropathy Acute Diarrhea ?C.diff- Test was not peformed Leukocytosis SFA occlusion - Not a candidate for surgery per Vascular SVT- Resolved Hyperchloremia Hypocalcemia Lactic acidosis 10/27: Patient received additional 4 L LR for fluid resuscitation and CV monitoring was initiated. Patient is on Levophed. ID added Flagyl to vancomycin and cefepime. His trach aspirate grew staph coccus aureus. At the time my examination patient the fentanyl drip was held by RN and he was on 14 MCG of Levophed. This morning he was on assist control 450/20/6/.100. We will give additional bolus of fluids with goal CVP 10-12 and repeat labs in AM. Surgery was consulted to possible debridement. 10/28: Overnight it was noted that patient went into SVT and he was given adenosine 6 mg/12 mg / 12 mg once and was started on a Cardizem drip after no response to amnio bolus and cardiology was consulted. Currently patient remains on Levophed drip and is hypotensive and received additional 2 L of bolus for goal CVP of 10-12. Infectious disease changed cefepime/Flagyl to meropenem for GNR in his blood cultures 09/04 and will continue vancomycin. Patient currently was not well controlled on max Cardizem and cardiology initiated amiodarone. Patient still is very tachycardic. Patient is hypomagnesemic and we will replete his Mg and recheck level. We will give the patient additional to complete resolve LR this afternoon. Patient has a standing order per [facility] to bolus the patient with LR for CVP goal of 10-12. This morning he is hyperchlormeic, metabolic acidotic (bicarb drip initiated) and his BUN/creatinine slightly elevated. Patient still remains lactic acidotic. 10/29: Patient's blood culture speciated to Proteus and his tracheal aspirate is MRSA. He is currently on ceftriaxone, Flagyl and vancomycin. Patient heart rate consistently is 110-150s and cardiology has given him an amiodarone bolus today and he remains on amiodarone drip. He looks much started on IV digoxin. This morning 4 L LR bolus was ordered and we will bolus an additional 4 L of LR this afternoon. Patient still has lactic acidosis, metabolic acidosis, leukocytosis and hyperchloremia. On examination this morning patient is more edematous and he remains on Levophed and amnio drip. 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 Remains on amio, levo and sedated with fentanyl. He is hypokalemic today which was repleted, h/h 02/18 and he is being type and crossed today with 2 units PRBC ordered to be transfused. Plt drop noted, heparin discontinued and HIT ordered. Bicarb gtt discontinued. No acute events overnight. 10/31: Patient hypomagnesemia today which was repleted and cardiology has changed his IV amiodarone to p.o. Patient will get albumin per [facility]. At the time my examination patient is on assist control 450/20/6/0.40. 11/03: At the time my examination patient is on assist control 450/20/6/0.25 and sedated with fentanyl and on Levophed at 4.Patient's leukocytosis is improving he received Albumin this weekend. Patient is hypokalemic, hypomagnesemic, hypocalcemic today. We will repeat his electrolytes and recheck a BMP in the a.m. Patient received 2 units PRBC on 10/30 and his hemoglobin has been trending down. We will recheck in the a.m. 11/04: At the time of my examination patient was on Levophed 3 mcg and on VZV/CPAP 450/20/6/0.35. Patient still has leukocytosis, respiratory alkalosis, hyponatremia, hypochloremia, hypocalcemia. Today his magnesium and potassium repleted with bolus of potassium 4/magnesium 2. He received 60 mcg KCl p.o., 40 mEq of KCl IV and 2 g of magnesium sulfate. We will recheck BMP and mag and a.m. Surgery has deemed the patient to unstable for further debulking. We also consulted vascular surgery for PVD as patient has discoloration to BLE /feet. 11/05: Vascular surgery will obtain bilateral lower extremity arterial duplex to evaluate arterial flow and recommends adding as FWF to tube feedings in assisting to wean off of vasopressors. Patient has hypokalemia, hypophosphatemia and normal to low magnesium. Magnesium, potassium and phosphate have been repleted. Patient still remains on ventilator support but on CPAP trial this morning. Patient HIT is still pending. This morning at the time of my examination patient was on assist-control 450/20/6/0.35 and he tolerated CPAP trial for 4 hours yesterday. He was on Levophed 0.5 and his rectal tube output was noted at 1000 mL. 11/06: This morning patient was on a CPAP trial and became hypoxic with SPO2 into the 80s and was switched back to assist control. Patient's vent settings are assist control tidal and 450, rate 20, PEEP 6, FiO2 0.25. Today patient has leukocytosis, hypernatremia, hyperchloremia, hypocalcemia and hypophosphatemia. We will repeat a phosphate. His free water flushes have been increased and his magnesium has been repleted again. Patient has been started on Lovenox given improvement in his platelet count and on midodrine to help keep Levophed off. Infectious disease will continue p.o. vancomycin for total of 10 days. 11/07: Patient failed his CPAP trial yesterday and has been placed on CPAP 10/ again this morning by RT. Overnight patient was rested on assist control tolerance by 50, rate of 20, pressure support 6 and FiO2 30%. His lab work is still pending for this morning. On repeat his phosphorus was 4.50 yesterday and repletion was discontinued. 11/08/2020; patient is off pressors currently on midodrine. Patient is on ceftriaxone and vancomycin. Patient is on assist control. Patient was evaluated by vascular surgery for peripheral vascular disease with SFA occlusion and recommend no intervention at this time. Prognosis is guarded. Patient is on 2 L of intranasal oxygen. We will put speech therapy evaluation. 11/09/2020; patient is currently off pressors and on midodrine. Continue with ceftriaxone, Flagyl and vancomycin per ID recommendation. Patient's blood culture grew Proteus mirabilis and tracheal aspirate grew MRSA. Patient was evaluated by vascular surgery for PVD with SFA occlusion and recommend no intervention at this time. Patient is on 2 L of intranasal oxygen. Currently patient is on tube feeding and follow speech therapy evaluation. 4/12: Overnight noted to have increased RR, ? Awaiting speech eval considering patient still on Tube feeds. Continue to monitor Hypernatremia. Antibiotics today will be D12. Will continue discharge planning on discussion with CM. Patient nonrebreather. Possibly back on congestive heart failure will need appropriate diuresis. Transferred back to [facility]. Discussed with retail route supervisor and also with cardiology. 11/11: Remains lethargic remains in respiratory distress chest x-ray shows right lung collapse likely secondary to mucous plug. Discussed with retail route supervisor will likely undergo a bronchoscopy today. We will also continue to monitor as we did suggest possible pleural effusion which we think may be less likely but if that seems to be the case we will send patient for thoracentesis following the bronchoscopy. Continue to monitor hemoglobin continue to monitor diarrhea antibiotics management per infectious disease. I did speak and update patient's cousin yesterday. Patient still with edema will await cardiology reevaluation for possible further diuresis. 11/12: Patient for Bronchoscopy today. Continue supportive care 11/13: Patient Clinically improving, tolerated Bronchoscopy yesterday. Awaiting am labs today. Overnight had bradycardia. Continue weaning oxygen. Discussed with refrigeration operator patient did have bronchial plug plus pleural effusion but will address. Will monitor serial x-rays. Discussed with nursing staff about my discussion with the brother. Continue supportive care. PER Brother,([phone] patient has had recurrent knee aspiration. Cardiology to re-evaluate today for Bradycardia noted overnight 11/14: Patient had a repeat bronchoscopy yesterday of the right lung due to muco us plug. [employer] Worker did have a conversation with the cousin as one of the considerations may be a trach due to recurrent pulmonary mucous plug and also significant debility for patient's overall medical condition. And his inability to maintain his airway. We will start him on a low round of D5 until diet is established. We will continue to monitor clinical status this morning. Plan discussed with nursing staff patient and also with project consultant 11/15: Continues to show some improvement, will check CXR today. Wean oxygen as tolerated, will likely need Trach per pulmonary. WBC improving, will monitor Sodium level. Patient on dopamin. 11/16: Patient overnight required intubation due to worsening respiratory failure secondary to complete opacification of the right lung again. This has appeared to cleared up this morning following the intuabation. Cousin advised of the finding, he will try to get us all his records because he believes that the patient has had a trach done before but is not sure. Started on Pressors due to hypotension 11/17: Today general surgery was consulted for trach/PEG placement, patient grew staph and tracheal aspirate and his cefepime was stopped and [facility] ordered a trial dose of Lasix. At the time my examination patient was on 1 mcg of fentanyl and dopamine 5 mcg/kg per cardiology. He has hyperchloremia and his lab work and is anemic today at 6.6/20.2. Patient received 1 unit PRBC. We will obtain a CBC in the a.m. 11/18: No acute events reported overnight, patient was given Lasix again by [facility], surgery has requested transfusion of one 1 unit PRBC despite H/H being 7.4/23.4 and plans to do a tracheostomy and plans to perform PEG and trach placement on 11/21/2020. We will follow up BMP and CBC in the a.m. Coags ordered. Hospitalist Physical - Constitutional Vitals: Temp Pulse Resp BP Pulse Ox 97.8 F 98 H 20 103/62 100 11/18/20 16:00 11/18/20 17:00 11/18/20 17:00 11/18/20 17:00 11/18/20 17:00 General appearance: Present: no acute distress, other (Intubated, resting comfortably) - EENT Eyes: Present: PERRL, EOM intact ENT: dentition normal - Neck Neck: Present: normal ROM - Respiratory Respiratory effort: normal Respiratory: bilateral: CTA - Cardiovascular Rhythm: regular Heart Sounds: Present: S1 & S2. Absent: systolic murmur, diastolic murmur - Extremities Extremities: no ischemia, pulses intact, pulses symmetrical, normal temperature, normal color Extremity abnormal: edema Peripheral Pulses: within normal limits - Abdominal General gastrointestinal: soft, non-tender, non-distended, normal bowel sounds - Integumentary Integumentary: Present: warm, dry - Psychiatric Psychiatric: appropriate mood/affect, cooperative - Neurologic Neurologic: no focal deficits - Allied Health Allied health notes reviewed: nursing, RT, social work HEART Score - HEART Score EKG: Non-specific Age: > 65 Risk factors: > 3 risk factors or hx of atherosclerotic disease Troponin: Troponin T 0.123 ng/mL (0.00-0.029) H* 11/13/20 23:15 Troponin: < normal limit - Critical Actions Critical Actions: 4-6 pts:12-16.6% risk of adverse cardiac event. Should be admitted Results - Labs CBC & Chem 7: 11/18/20 04:45 11/18/20 04:45 Labs: Laboratory Last Values WBC 9.0 K/mm3 (4.5-11.0) 11/18/20 04:45 RBC 2.36 M/mm3 (3.65-5.03) L 11/18/20 04:45 Hgb 7.4 gm/dl (11.8-15.2) L 11/18/20 04:45 Hct 23.4 % (35.5-45.6) L 11/18/20 04:45 MCV 99 fl (84-94) H 11/18/20 04:45 MCH 32 pg (28-32) 11/18/20 04:45 MCHC 32 % (32-34) 11/18/20 04:45 RDW 21.6 % (13.2-15.2) H 11/18/20 04:45 Plt Count 245 K/mm3 (140-440) 11/18/20 04:45 Lymph % (Auto) 9.1 % (13.4-35.0) L 11/09/20 06:00 [place] % (Auto) 5.4 % (0.0-7.3) 11/09/20 06:00 Eos % (Auto) 0.3 % (0.0-4.3) 11/09/20 06:00 Baso % (Auto) 0.4 % (0.0-1.8) 11/09/20 06:00 Lymph # (Auto) 1.2 K/mm3 (1.2-5.4) 11/09/20 06:00 [place] # (Auto) 0.7 K/mm3 (0.0-0.8) 11/09/20 06:00 Eos # (Auto) 0.0 K/mm3 (0.0-0.4) 11/09/20 06:00 Baso # (Auto) 0.0 K/mm3 (0.0-0.1) 11/09/20 06:00 Add Manual Diff Complete 11/10/20 13:46 Total Counted 100 11/10/20 13:46 Seg Neutrophils % 84.8 % (40.0-70.0) H 11/09/20 06:00 Seg Neuts % (Manual) 90.0 % (40.0-70.0) H 11/10/20 13:46 Band Neutrophils % 17.0 % 10/27/20 03:30 Lymphocytes % (Manual) 3.0 % (13.4-35.0) L 11/10/20 13:46 Monocytes % (Manual) 7.0 % (0.0-7.3) 11/10/20 13:46 Eosinophils % (Manual) 2.0 % (0.0-4.3) 10/27/20 03:30 Metamyelocytes % 4.0 % 10/27/20 03:30 Nucleated RBC % Not Reportable 11/10/20 13:46 Seg Neutrophils # 11.1 K/mm3 (1.8-7.7) H 11/09/20 06:00 Seg Neutrophils # Man 14.5 K/mm3 (1.8-7.7) H 11/10/20 13:46 Band Neutrophils # 0.0 K/mm3 11/10/20 13:46 Lymphocytes # (Manual) 0.5 K/mm3 (1.2-5.4) L 11/10/20 13:46 Abs React Lymphs (Man) 0.0 K/mm3 11/10/20 13:46 Monocytes # (Manual) 1.1 K/mm3 (0.0-0.8) H 11/10/20 13:46 Eosinophils # (Manual) 0.0 K/mm3 (0.0-0.4) 11/10/20 13:46 Basophils # (Manual) 0.0 K/mm3 (0.0-0.1) 11/10/20 13:46 Metamyelocytes # 0.0 K/mm3 11/10/20 13:46 Myelocytes # 0.0 K/mm3 11/10/20 13:46 Promyelocytes # 0.0 K/mm3 11/10/20 13:46 Blast Cells # 0.0 K/mm3 11/10/20 13:46 WBC Morphology Not Reportable 11/10/20 13:46 Hypersegmented Neuts Not Reportable 11/10/20 13:46 Hyposegmented Neuts Not Reportable 11/10/20 13:46 Hypogranular Neuts Not Reportable 11/10/20 13:46 Smudge Cells Not Reportable 11/10/20 13:46 Toxic Granulation Not Reportable 11/10/20 13:46 Toxic Vacuolation Not Reportable 11/10/20 13:46 Dohle Bodies Not Reportable 11/10/20 13:46 Pelger-Huet Anomaly Not Reportable 11/10/20 13:46 Kassi Rods Not Reportable 11/10/20 13:46 Platelet Estimate Not Reportable 11/10/20 13:46 Clumped Platelets Not Reportable 11/10/20 13:46 Plt Clumps, EDTA Not Reportable 11/10/20 13:46 Large Platelets Not Reportable 11/10/20 13:46 Giant Platelets Not Reportable 11/10/20 13:46 Platelet Satelliting Not Reportable 11/10/20 13:46 Plt Morphology Comment Not Reportable 11/10/20 13:46 RBC Morphology Not Reportable 11/10/20 13:46 Dimorphic RBCs Yes 11/10/20 13:46 Polychromasia Not Reportable 11/10/20 13:46 Hypochromasia Not Reportable 11/10/20 13:46 Poikilocytosis Not Reportable 11/10/20 13:46 Anisocytosis Not Reportable 11/10/20 13:46 Microcytosis Rare 11/10/20 13:46 Macrocytosis Rare 11/10/20 13:46 Spherocytes Not Reportable 11/10/20 13:46 Pappenheimer Bodies Not Reportable 11/10/20 13:46 Sickle Cells Not Reportable 11/10/20 13:46 Target Cells Not Reportable 11/10/20 13:46 Tear Drop Cells Not Reportable 11/10/20 13:46 Ovalocytes Not Reportable 11/10/20 13:46 Helmet Cells Not Reportable 11/10/20 13:46 [place] Bodies Not Reportable 11/10/20 13:46 [place] Rings Not Reportable 11/10/20 13:46 [place] Cells Not Reportable 11/10/20 13:46 Bite Cells Not Reportable 11/10/20 13:46 Crenated Cell Not Reportable 11/10/20 13:46 Elliptocytes Not Reportable 11/10/20 13:46 Acanthocytes (Spur) Not Reportable 11/10/20 13:46 Rouleaux Not Reportable 11/10/20 13:46 Hemoglobin C Crystals Not Reportable 11/10/20 13:46 Schistocytes Not Reportable 11/10/20 13:46 Malaria parasites Not Reportable 11/10/20 13:46 Richard Bodies Not Reportable 11/10/20 13:46 Hem Pathologist Commnt No 11/10/20 13:46 PT 15.0 Sec. (12.2-14.9) H 11/11/20 14:38 INR 1.18 (0.87-1.13) H 11/11/20 14:38 APTT 27.9 Sec. (24.2-36.6) 10/26/20 17:25 Heparin Anti-Xa, Unfract Negative (Negative) 11/03/20 11:01 ABG pH 7.439 (7.320-7.450) 11/18/20 04:06 POC ABG pCO2 42.2 mmHg (32.0-48.0) 11/18/20 04:06 ABG pCO2 49.1 mm Hg 11/16/20 03:43 POC ABG pO2 67.7 mmHg (83-108) L 11/18/20 04:06 ABG pO2 91.6 mm Hg (80.0-90.0) H 11/16/20 03:43 POC ABG HCO3 28 11/18/20 04:06 ABG HCO3 26.3 mmol/L (20.0-26.0) H 11/16/20 03:43 ABG O2 Saturation 94.2 (0-100) 11/18/20 04:06 ABG O2 Content 9.9 (0.0-44) 11/16/20 03:43 POC ABG Base Excess 3.5 11/18/20 04:06 ABG Base Excess 0.5 mmol/L (-2.0-3.0) 11/16/20 03:43 ABG Hemoglobin 8.3 (12.0-17.5) L 11/18/20 04:06 ABG Oxyhemoglobin 77.1 (94-98) L 11/13/20 Unknown ABG Carboxyhemoglobin 1.6 % (0.0-5.0) 11/16/20 03:43 ABG Methemoglobin 0.5 % (0.0-1.5) 11/16/20 03:43 ABG Sodium 137.8 mmol/L (136.0-145.0) 11/18/20 04:06 ABG Potassium 4.2 mmol/L (3.40-4.50) 11/18/20 04:06 ABG Chloride 112.0 mmol/L (98-107) H 11/18/20 04:06 ABG Glucose 143 mg/dL (65-95) H 11/18/20 04:06 Oxyhemoglobin 95.0 % (95.0-99.0) 11/16/20 03:43 Carboxyhemoglobin 0.8 (0.5-1.5) 11/13/20 Unknown FiO2 80 % 11/16/20 03:43 FiO2 % 35 11/18/20 04:06 Sodium 141 mmol/L (137-145) 11/18/20 04:45 Potassium 4.3 mmol/L (3.6-5.0) 11/18/20 04:45 Chloride 107.9 mmol/L (98-107) H 11/18/20 04:45 Carbon Dioxide 30 mmol/L (22-30) 11/18/20 04:45 Anion Gap 7 mmol/L 11/18/20 04:45 BUN 23 mg/dL (9-20) H 11/18/20 04:45 Creatinine 0.4 mg/dL (0.8-1.3) L 11/18/20 04:45 Estimated GFR > 60 ml/min 11/18/20 04:45 BUN/Creatinine Ratio 58 % 11/18/20 04:45 Glucose 139 mg/dL (75-100) H 11/18/20 04:45 POC Glucose 71 mg/dL (70-105) 11/18/20 12:31 Hemoglobin A1c 5.5 % (4-6) 10/27/20 04:42 Lactic Acid 4.30 mmol/L (0.7-2.0) H* 10/31/20 Unknown Calcium 7.6 mg/dL (8.4-10.2) L 11/18/20 04:45 Phosphorus 4.50 mg/dL (2.5-4.5) D 11/06/20 13:03 Magnesium 1.70 mg/dL (1.7-2.3) 11/13/20 23:15 Total Bilirubin < 0.20 mg/dL (0.1-1.2) 11/06/20 06:45 AST 23 units/L (5-40) 11/06/20 06:45 ALT 20 units/L (7-56) 11/06/20 06:45 Alkaline Phosphatase 117 units/L (35-129) 11/06/20 06:45 Total Creatine Kinase 31 units/L (55-170) L 10/26/20 17:28 Troponin T 0.123 ng/mL (0.00-0.029) H* 11/13/20 23:15 Total Protein 5.0 g/dL (6.3-8.2) L 11/06/20 06:45 Albumin 1.4 g/dL (3.9-5) L 11/06/20 06:45 Albumin/Globulin Ratio 0.4 % 11/06/20 06:45 Triglycerides 190 mg/dL (2-149) H 10/26/20 17:25 Cholesterol 92 mg/dL (50-199) 10/26/20 17:25 LDL Cholesterol Direct 33 mg/dL (50-130) L 10/26/20 17:25 HDL Cholesterol 18 mg/dL (40-59) L 10/26/20 17:25 Cholesterol/HDL Ratio 5.11 % 10/26/20 17:25 Serotonin Release Assay See scanned results 11/03/20 11:01 TSH 1.490 mlU/mL (0.270-4.200) 10/26/20 17:28 Arterial Blood Glucose 143 mg/dL (65-95) H 11/18/20 04:06 Arterial Blood Ionized Calcium 4.5 mg/dL (4.6-5.3) L 11/18/20 04:06 Urine Color Yellow (Yellow) 10/27/20 Unknown Urine Turbidity Turbid (Clear) 10/27/20 Unknown Urine pH 8.0 (5.0-7.0) H 10/27/20 Unknown Ur Specific [place] 1.020 (1.003-1.030) 10/27/20 Unknown Urine Protein >500 mg/dL (Negative) 10/27/20 Unknown Urine Glucose (UA) Neg mg/dL (Negative) 10/27/20 Unknown Urine Ketones Neg mg/dL (Negative) 10/27/20 Unknown Urine Blood Sm (Negative) 10/27/20 Unknown Urine Nitrite Neg (Negative) 10/27/20 Unknown Urine Bilirubin Neg (Negative) 10/27/20 Unknown Urine Urobilinogen < 2.0 mg/dL (<2.0) 10/27/20 Unknown Ur Leukocyte Esterase Mod (Negative) 10/27/20 Unknown Urine WBC (Auto) > 182.0 /HPF (0.0-6.0) H 10/27/20 Unknown Urine RBC (Auto) 35.0 /HPF (0.0-6.0) 10/27/20 Unknown Urine WBC Clumps 3+ /HPF 10/27/20 Unknown Urine Mucus 3+ /HPF 10/27/20 Unknown Urine Yeast (Budding) 3+ /HPF 10/27/20 Unknown Vancomycin Trough 22.0 ug/mL (5.0-20.0) H 10/30/20 Unknown Salicylates < 0.3 mg/dL (2.8-20.0) L 10/26/20 17:28 Acetaminophen 5.0 ug/mL (10.0-30.0) L 10/26/20 17:28 Heparin-induced Plt Ab Negative (Negative) 11/03/20 11:01 UF Heparin High Dose 0 % Release 11/03/20 11:01 MOISES UFH Low Dose 0.1 2 % Release 11/03/20 11:01 MOISES UFH Low Dose 0.5 0 % Release 11/03/20 11:01 Coronavirus (PCR) Negative (Negative) 10/27/20 Unknown Blood Type O POSITIVE 11/17/20 11:10 Antibody Screen Negative 11/17/20 11:10 Crossmatch See Detail 11/17/20 11:10 Rivas/IV: Voiding Method Indwelling Catheter Active Medications - Current Medications Current Medications: Generic Name Dose Route Start Last Admin Trade Name Freq PRN Reason Stop Dose Admin Acetaminophen 650 mg 10/26/20 22:22 11/13/20 14:36 Acetaminophen 325 Mg Tab PO 650 mg Q4H PRN Administration Pain MILD(1-3)/Fever >100.5/TIERNEY Albuterol 2.5 mg 11/11/20 14:00 11/18/20 14:00 Albuterol 2.5 Mg/3 Ml Nebu IH 2.5 mg TIDRT MARSHALL Administration Lipase/Protease/Amylase 1 each 10/28/20 13:18 Lipase 10,500/Protease 25,000/Amylase 43,750 (Units) Dr Cap FEEDTUBE PRN PRN For Clogged Feeding Tube Famotidine 20 mg 11/11/20 10:00 11/18/20 09:36 Famotidine 20 Mg Tab PO 20 mg BID MARSHALL Administration Fentanyl 50 mcg 11/15/20 22:30 Fentanyl 100 Mcg/2 Ml Inj IV Q10MIN PRN ANALGESIA Hydrophilic Ointment 1 applic 11/15/20 22:30 Lip Therapy Vaseline TP Q2HR PRN Dry Lips Fentanyl Citrate 2,000 mcg in 100 mls @ 6.55 mls/hr 11/15/20 23:00 11/18/20 05:45 Fentanyl Drip Premix IV 1 mcg/kg/hr TITR MARSHALL 6.55 mls/hr Administration Protocol 1 MCG/KG/HR Norepinephrine 4 mg in 250 mls @ 7.5 mls/hr 11/15/20 23:45 11/17/20 01:37 Levophed Drip 4 Mg/Ns 250 Ml IV 0 mcg/min TITR MARSHALL 0 mls/hr Titration Protocol 2 MCG/MIN Vancomycin HCl 2,000 mg/ 540 mls @ 333 mls/hr 11/16/20 12:00 11/18/20 13:54 Sodium Chloride IV 333 mls/hr Q24H MARSHALL Administration Protocol Sodium Chloride 500 mls @ 0 mls/hr 11/18/20 17:29 Nacl 0.9% 500 Ml IV 11/18/20 17:30 ONCE ONE As Directed Midodrine 10 mg 11/06/20 12:00 11/18/20 17:15 Midodrine 5 Mg Tab PO 10 mg TID@0800,1200,1600 [facility] Administration Multi-Ingred Cream/Lotion/Oil/Oint 1 applic 11/15/20 22:30 Mineral Oil/Petrolatum, White Ophth Oint 3.5 Gm OU Q4HR PRN Dry Eye(s) Ondansetron HCl 4 mg 10/26/20 22:22 Ondansetron 4 Mg/2 Ml Inj IV Q8H PRN Nausea And Vomiting Simple Syrup 15 ml 10/28/20 13:18 11/10/20 16:01 Simple Syrup 15 Ml FEEDTUBE 15 ml PRN PRN Administration Hypoglycemia Simple Syrup 30 ml 10/28/20 13:18 Simple Syrup 15 Ml FEEDTUBE PRN PRN Hypoglycemia Sodium Bicarbonate 325 mg 10/28/20 13:18 Sodium Bicarbonate 325 Mg Tab FEEDTUBE PRN PRN For Clogged Feeding Tube Sodium Chloride 10 ml 10/27/20 10:00 11/18/20 09:36 Sodium Chloride 0.9% 10 Ml Flush Syringe IV 10 ml BID MARSHALL Administration Sodium Chloride 10 ml 10/26/20 22:22 Sodium Chloride 0.9% 10 Ml Flush Syringe IV PRN PRN LINE FLUSH Sodium Hypochlorite 1 applic 10/28/20 10:00 11/18/20 09:35 Sodium Hypochlorite, Dakin's 1/2 Strength (0.25%) 473 Ml Topical Soln TP 1 applicatio BID MARSHALL Administration Vancomycin HCl 125 mg 11/16/20 12:00 11/18/20 17:16 Vancomycin 250 Mg/10 Ml Oral Liqd PO 125 mg Q6HR MARSHALL Administration Protocol Nutrition/Malnutrition Assess - Dietary Evaluation Nutrition/Malnutrition Findings: Nutrition Notes Start: 10/27/20 09:15 Freq: Status: Active Protocol: Document 11/17/20 14:12 (Rec: 11/17/20 14:18 [email or web address]) Nutrition Notes Initial or Follow up Reassessment Current Diagnosis Acute Kidney Injury,Decubitus( Pressure Ulcer),Sepsis, Hypertension,Respiratory Failure,Hyperlipidemia Other Pertinent Diagnosis AMS, MRSA, Encephalopathy, Metabiloc Acidosis, pneu ,FTT Current Diet Promote at 80 ml/hr Labs/Tests Na 144 BUN 23 Cr 0.4 Pertinent Medications D5w at 65 ml/hr Vancomycin Height 6 ft 2 in Weight 131.6 kg [place] Body Weight (kg) 86.36 BMI 37.2 Weight change and time frame wt fluctuations Weight Status Obese Subjective/Other Information FU for TF tolerance. Observed Promote running at goal rate and pt tolerating. Percent of energy/protein needs met: 100%/90% Burn Absent Trauma Absent GI Symptoms Diarrhea Difficulty In Swallowing,Chewing Skin Integrity/Comment Multiple pressure ulcer,1 infected Current % PO Negligible Minimum of two criteria No Fluid Accumulation Moderate to Severe (severe) #2 Nutrition Diagnosis Increased nutrient needs ( specify in comment below) Diagnosis Progress(for reassessment Continues documentation) #1 Nutrition Diagnosis Inadequate oral intake Diagnosis Progress(for reassessment Continues documentation) Is patient on ventilator? Yes Is Patient Ambulatory and/or Out of Bed No REE-([place]-confined to bed) 2544.612 Kcal/Kg value to use for calculation 14 Approximate Energy Requirements Using 1842 kcal/Kg Calculation Used for Recommendations Kcal/kg Additional Notes protein needs: 133 - 167g(1.2 - 1.5 g/kgAdBW 111) Fluid needs 1 ml/kcal Nutrition Intervention Change Diet Order: Continue Nutrition Support: Promote at 80 ml/hr with a flush of 50 ml q4h Kcal 1,920 Protein (gm) 120 Fluid (mL) 1,611 Goal #1 TF tolerance Goal #2 Meet at least 75% EER and protein needs via TF Goal #3 wound healing Anticipated Discharge Needs: unable to determine at this time Follow-Up By: 11/20/20 Additional Comments FU for stable TF <KAMRAN GUPTA R - Last Filed: 11/18/20 23:21> Hospitalist Physical - Constitutional Vitals: Temp Pulse Resp BP Pulse Ox 98.8 F 105 H 20 116/93 94 11/18/20 20:00 11/18/20 19:25 11/18/20 19:23 11/18/20 19:25 11/18/20 19:25 HEART Score - HEART Score Troponin: Troponin T 0.123 ng/mL (0.00-0.029) H* 11/13/20 23:15 Results - Labs CBC & Chem 7: 11/18/20 04:45 11/18/20 04:45 Labs: Laboratory Last Values WBC 9.0 K/mm3 (4.5-11.0) 11/18/20 04:45 RBC 2.36 M/mm3 (3.65-5.03) L 11/18/20 04:45 Hgb 7.4 gm/dl (11.8-15.2) L 11/18/20 04:45 Hct 23.4 % (35.5-45.6) L 11/18/20 04:45 MCV 99 fl (84-94) H 11/18/20 04:45 MCH 32 pg (28-32) 11/18/20 04:45 MCHC 32 % (32-34) 11/18/20 04:45 RDW 21.6 % (13.2-15.2) H 11/18/20 04:45 Plt Count 245 K/mm3 (140-440) 11/18/20 04:45 Lymph % (Auto) 9.1 % (13.4-35.0) L 11/09/20 06:00 [place] % (Auto) 5.4 % (0.0-7.3) 11/09/20 06:00 Eos % (Auto) 0.3 % (0.0-4.3) 11/09/20 06:00 Baso % (Auto) 0.4 % (0.0-1.8) 11/09/20 06:00 Lymph # (Auto) 1.2 K/mm3 (1.2-5.4) 11/09/20 06:00 [place] # (Auto) 0.7 K/mm3 (0.0-0.8) 11/09/20 06:00 Eos # (Auto) 0.0 K/mm3 (0.0-0.4) 11/09/20 06:00 Baso # (Auto) 0.0 K/mm3 (0.0-0.1) 11/09/20 06:00 Add Manual Diff Complete 11/10/20 13:46 Total Counted 100 11/10/20 13:46 Seg Neutrophils % 84.8 % (40.0-70.0) H 11/09/20 06:00 Seg Neuts % (Manual) 90.0 % (40.0-70.0) H 11/10/20 13:46 Band Neutrophils % 17.0 % 10/27/20 03:30 Lymphocytes % (Manual) 3.0 % (13.4-35.0) L 11/10/20 13:46 Monocytes % (Manual) 7.0 % (0.0-7.3) 11/10/20 13:46 Eosinophils % (Manual) 2.0 % (0.0-4.3) 10/27/20 03:30 Metamyelocytes % 4.0 % 10/27/20 03:30 Nucleated RBC % Not Reportable 11/10/20 13:46 Seg Neutrophils # 11.1 K/mm3 (1.8-7.7) H 11/09/20 06:00 Seg Neutrophils # Man 14.5 K/mm3 (1.8-7.7) H 11/10/20 13:46 Band Neutrophils # 0.0 K/mm3 11/10/20 13:46 Lymphocytes # (Manual) 0.5 K/mm3 (1.2-5.4) L 11/10/20 13:46 Abs React Lymphs (Man) 0.0 K/mm3 11/10/20 13:46 Monocytes # (Manual) 1.1 K/mm3 (0.0-0.8) H 11/10/20 13:46 Eosinophils # (Manual) 0.0 K/mm3 (0.0-0.4) 11/10/20 13:46 Basophils # (Manual) 0.0 K/mm3 (0.0-0.1) 11/10/20 13:46 Metamyelocytes # 0.0 K/mm3 11/10/20 13:46 Myelocytes # 0.0 K/mm3 11/10/20 13:46 Promyelocytes # 0.0 K/mm3 11/10/20 13:46 Blast Cells # 0.0 K/mm3 11/10/20 13:46 WBC Morphology Not Reportable 11/10/20 13:46 Hypersegmented Neuts Not Reportable 11/10/20 13:46 Hyposegmented Neuts Not Reportable 11/10/20 13:46 Hypogranular Neuts Not Reportable 11/10/20 13:46 Smudge Cells Not Reportable 11/10/20 13:46 Toxic Granulation Not Reportable 11/10/20 13:46 Toxic Vacuolation Not Reportable 11/10/20 13:46 Dohle Bodies Not Reportable 11/10/20 13:46 Pelger-Huet Anomaly Not Reportable 11/10/20 13:46 Kassi Rods Not Reportable 11/10/20 13:46 Platelet Estimate Not Reportable 11/10/20 13:46 Clumped Platelets Not Reportable 11/10/20 13:46 Plt Clumps, EDTA Not Reportable 11/10/20 13:46 Large Platelets Not Reportable 11/10/20 13:46 Giant Platelets Not Reportable 11/10/20 13:46 Platelet Satelliting Not Reportable 11/10/20 13:46 Plt Morphology Comment Not Reportable 11/10/20 13:46 RBC Morphology Not Reportable 11/10/20 13:46 Dimorphic RBCs Yes 11/10/20 13:46 Polychromasia Not Reportable 11/10/20 13:46 Hypochromasia Not Reportable 11/10/20 13:46 Poikilocytosis Not Reportable 11/10/20 13:46 Anisocytosis Not Reportable 11/10/20 13:46 Microcytosis Rare 11/10/20 13:46 Macrocytosis Rare 11/10/20 13:46 Spherocytes Not Reportable 11/10/20 13:46 Pappenheimer Bodies Not Reportable 11/10/20 13:46 Sickle Cells Not Reportable 11/10/20 13:46 Target Cells Not Reportable 11/10/20 13:46 Tear Drop Cells Not Reportable 11/10/20 13:46 Ovalocytes Not Reportable 11/10/20 13:46 Helmet Cells Not Reportable 11/10/20 13:46 [place] Bodies Not Reportable 11/10/20 13:46 [place] Rings Not Reportable 11/10/20 13:46 Rhea Cells Not Reportable 11/10/20 13:46 Bite Cells Not Reportable 11/10/20 13:46 Crenated Cell Not Reportable 11/10/20 13:46 Elliptocytes Not Reportable 11/10/20 13:46 Acanthocytes (Spur) Not Reportable 11/10/20 13:46 Rouleaux Not Reportable 11/10/20 13:46 Hemoglobin C Crystals Not Reportable 11/10/20 13:46 Schistocytes Not Reportable 11/10/20 13:46 Malaria parasites Not Reportable 11/10/20 13:46 Richard Bodies Not Reportable 11/10/20 13:46 Hem Pathologist Commnt No 11/10/20 13:46 PT 15.0 Sec. (12.2-14.9) H 11/11/20 14:38 INR 1.18 (0.87-1.13) H 11/11/20 14:38 APTT 27.9 Sec. (24.2-36.6) 10/26/20 17:25 Heparin Anti-Xa, Unfract Negative (Negative) 11/03/20 11:01 ABG pH 7.439 (7.320-7.450) 11/18/20 04:06 POC ABG pCO2 42.2 mmHg (32.0-48.0) 11/18/20 04:06 ABG pCO2 49.1 mm Hg 11/16/20 03:43 POC ABG pO2 67.7 mmHg (83-108) L 11/18/20 04:06 ABG pO2 91.6 mm Hg (80.0-90.0) H 11/16/20 03:43 POC ABG HCO3 28 11/18/20 04:06 ABG HCO3 26.3 mmol/L (20.0-26.0) H 11/16/20 03:43 ABG O2 Saturation 94.2 (0-100) 11/18/20 04:06 ABG O2 Content 9.9 (0.0-44) 11/16/20 03:43 POC ABG Base Excess 3.5 11/18/20 04:06 ABG Base Excess 0.5 mmol/L (-2.0-3.0) 11/16/20 03:43 ABG Hemoglobin 8.3 (12.0-17.5) L 11/18/20 04:06 ABG Oxyhemoglobin 77.1 (94-98) L 11/13/20 Unknown ABG Carboxyhemoglobin 1.6 % (0.0-5.0) 11/16/20 03:43 ABG Methemoglobin 0.5 % (0.0-1.5) 11/16/20 03:43 ABG Sodium 137.8 mmol/L (136.0-145.0) 11/18/20 04:06 ABG Potassium 4.2 mmol/L (3.40-4.50) 11/18/20 04:06 ABG Chloride 112.0 mmol/L (98-107) H 11/18/20 04:06 ABG Glucose 143 mg/dL (65-95) H 11/18/20 04:06 Oxyhemoglobin 95.0 % (95.0-99.0) 11/16/20 03:43 Carboxyhemoglobin 0.8 (0.5-1.5) 11/13/20 Unknown FiO2 80 % 11/16/20 03:43 FiO2 % 35 11/18/20 04:06 Sodium 141 mmol/L (137-145) 11/18/20 04:45 Potassium 4.3 mmol/L (3.6-5.0) 11/18/20 04:45 Chloride 107.9 mmol/L (98-107) H 11/18/20 04:45 Carbon Dioxide 30 mmol/L (22-30) 11/18/20 04:45 Anion Gap 7 mmol/L 11/18/20 04:45 BUN 23 mg/dL (9-20) H 11/18/20 04:45 Creatinine 0.4 mg/dL (0.8-1.3) L 11/18/20 04:45 Estimated GFR > 60 ml/min 11/18/20 04:45 BUN/Creatinine Ratio 58 % 11/18/20 04:45 Glucose 139 mg/dL (75-100) H 11/18/20 04:45 POC Glucose 93 mg/dL (70-105) 11/18/20 17:49 Hemoglobin A1c 5.5 % (4-6) 10/27/20 04:42 Lactic Acid 4.30 mmol/L (0.7-2.0) H* 10/31/20 Unknown Calcium 7.6 mg/dL (8.4-10.2) L 11/18/20 04:45 Phosphorus 4.50 mg/dL (2.5-4.5) D 11/06/20 13:03 Magnesium 1.70 mg/dL (1.7-2.3) 11/13/20 23:15 Total Bilirubin < 0.20 mg/dL (0.1-1.2) 11/06/20 06:45 AST 23 units/L (5-40) 11/06/20 06:45 ALT 20 units/L (7-56) 11/06/20 06:45 Alkaline Phosphatase 117 units/L (35-129) 11/06/20 06:45 Total Creatine Kinase 31 units/L (55-170) L 10/26/20 17:28 Troponin T 0.123 ng/mL (0.00-0.029) H* 11/13/20 23:15 Total Protein 5.0 g/dL (6.3-8.2) L 11/06/20 06:45 Albumin 1.4 g/dL (3.9-5) L 11/06/20 06:45 Albumin/Globulin Ratio 0.4 % 11/06/20 06:45 Triglycerides 190 mg/dL (2-149) H 10/26/20 17:25 Cholesterol 92 mg/dL (50-199) 10/26/20 17:25 LDL Cholesterol Direct 33 mg/dL (50-130) L 10/26/20 17:25 HDL Cholesterol 18 mg/dL (40-59) L 10/26/20 17:25 Cholesterol/HDL Ratio 5.11 % 10/26/20 17:25 Serotonin Release Assay See scanned results 11/03/20 11:01 TSH 1.490 mlU/mL (0.270-4.200) 10/26/20 17:28 Arterial Blood Glucose 143 mg/dL (65-95) H 11/18/20 04:06 Arterial Blood Ionized Calcium 4.5 mg/dL (4.6-5.3) L 11/18/20 04:06 Urine Color Yellow (Yellow) 10/27/20 Unknown Urine Turbidity Turbid (Clear) 10/27/20 Unknown Urine pH 8.0 (5.0-7.0) H 10/27/20 Unknown Ur Specific [place] 1.020 (1.003-1.030) 10/27/20 Unknown Urine Protein >500 mg/dL (Negative) 10/27/20 Unknown Urine Glucose (UA) Neg mg/dL (Negative) 10/27/20 Unknown Urine Ketones Neg mg/dL (Negative) 10/27/20 Unknown Urine Blood Sm (Negative) 10/27/20 Unknown Urine Nitrite Neg (Negative) 10/27/20 Unknown Urine Bilirubin Neg (Negative) 10/27/20 Unknown Urine Urobilinogen < 2.0 mg/dL (<2.0) 10/27/20 Unknown Ur Leukocyte Esterase Mod (Negative) 10/27/20 Unknown Urine WBC (Auto) > 182.0 /HPF (0.0-6.0) H 10/27/20 Unknown Urine RBC (Auto) 35.0 /HPF (0.0-6.0) 10/27/20 Unknown Urine WBC Clumps 3+ /HPF 10/27/20 Unknown Urine Mucus 3+ /HPF 10/27/20 Unknown Urine Yeast (Budding) 3+ /HPF 10/27/20 Unknown Vancomycin Trough 22.0 ug/mL (5.0-20.0) H 10/30/20 Unknown Salicylates < 0.3 mg/dL (2.8-20.0) L 10/26/20 17:28 Acetaminophen 5.0 ug/mL (10.0-30.0) L 10/26/20 17:28 Heparin-induced Plt Ab Negative (Negative) 11/03/20 11:01 UF Heparin High Dose 0 % Release 11/03/20 11:01 MOISES UFH Low Dose 0.1 2 % Release 11/03/20 11:01 MOISES UFH Low Dose 0.5 0 % Release 11/03/20 11:01 Coronavirus (PCR) Negative (Negative) 10/27/20 Unknown Blood Type O POSITIVE 11/17/20 11:10 Antibody Screen Negative 11/17/20 11:10 Crossmatch See Detail 11/17/20 11:10 Rivas/IV: Voiding Method Indwelling Catheter Active Medications - Current Medications Current Medications: Generic Name Dose Route Start Last Admin Trade Name Freq PRN Reason Stop Dose Admin Acetaminophen 650 mg 10/26/20 22:22 11/13/20 14:36 Acetaminophen 325 Mg Tab PO 650 mg Q4H PRN Administration Pain MILD(1-3)/Fever >100.5/TIERNEY Albuterol 2.5 mg 11/11/20 14:00 11/18/20 19:22 Albuterol 2.5 Mg/3 Ml Nebu IH 2.5 mg TIDRT MARSHALL Administration Lipase/Protease/Amylase 1 each 10/28/20 13:18 Lipase 10,500/Protease 25,000/Amylase 43,750 (Units) Dr Cap FEEDTUBE PRN PRN For Clogged Feeding Tube Famotidine 20 mg 11/11/20 10:00 11/18/20 22:24 Famotidine 20 Mg Tab PO 20 mg BID MARSHALL Administration Fentanyl 50 mcg 11/15/20 22:30 Fentanyl 100 Mcg/2 Ml Inj IV Q10MIN PRN ANALGESIA Hydrophilic Ointment 1 applic 11/15/20 22:30 Lip Therapy Vaseline TP Q2HR PRN Dry Lips Fentanyl Citrate 2,000 mcg in 100 mls @ 6.55 mls/hr 11/15/20 23:00 11/18/20 20:29 Fentanyl Drip Premix IV 1 mcg/kg/hr TITR MARSHALL 6.55 mls/hr Administration Protocol 1 MCG/KG/HR Norepinephrine 4 mg in 250 mls @ 7.5 mls/hr 11/15/20 23:45 11/17/20 01:37 Levophed Drip 4 Mg/Ns 250 Ml IV 0 mcg/min TITR MARSHALL 0 mls/hr Titration Protocol 2 MCG/MIN Vancomycin HCl 2,000 mg/ 540 mls @ 333 mls/hr 11/16/20 12:00 11/18/20 15:35 Sodium Chloride IV Infused Q24H MARSHALL Infusion Protocol Sodium Chloride 500 mls @ 0 mls/hr 11/18/20 17:29 11/18/20 20:32 Nacl 0.9% 500 Ml IV 11/19/20 04:00 50 mls/hr ONCE NR Administration As Directed Midodrine 10 mg 11/06/20 12:00 11/18/20 17:15 Midodrine 5 Mg Tab PO 10 mg TID@0800,1200,1600 MARSHALL Administration Multi-Ingred Cream/Lotion/Oil/Oint 1 applic 11/15/20 22:30 Mineral Oil/Petrolatum, White Ophth Oint 3.5 Gm OU Q4HR PRN Dry Eye(s) Ondansetron HCl 4 mg 10/26/20 22:22 Ondansetron 4 Mg/2 Ml Inj IV Q8H PRN Nausea And Vomiting Simple Syrup 15 ml 10/28/20 13:18 11/10/20 16:01 Simple Syrup 15 Ml FEEDTUBE 15 ml PRN PRN Administration Hypoglycemia Simple Syrup 30 ml 10/28/20 13:18 Simple Syrup 15 Ml FEEDTUBE PRN PRN Hypoglycemia Sodium Bicarbonate 325 mg 10/28/20 13:18 Sodium Bicarbonate 325 Mg Tab FEEDTUBE PRN PRN For Clogged Feeding Tube Sodium Chloride 10 ml 10/27/20 10:00 11/18/20 22:26 Sodium Chloride 0.9% 10 Ml Flush Syringe IV 10 ml BID MARSHALL Administration Sodium Chloride 10 ml 10/26/20 22:22 Sodium Chloride 0.9% 10 Ml Flush Syringe IV PRN PRN LINE FLUSH Sodium Hypochlorite 1 applic 10/28/20 10:00 11/18/20 22:25 Sodium Hypochlorite, Dakin's 1/2 Strength (0.25%) 473 Ml Topical Soln TP 1 applicatio BID MARSHALL Administration Vancomycin HCl 125 mg 11/16/20 12:00 11/18/20 17:16 Vancomycin 250 Mg/10 Ml Oral Liqd PO 125 mg Q6HR MARSHALL Administration Protocol Nutrition/Malnutrition Assess - Dietary Evaluation Nutrition/Malnutrition Findings: Nutrition Notes Start: 10/27/20 09:15 Freq: Status: Active Protocol: Document 11/17/20 14:12 (Rec: 11/17/20 14:18 [id number]) Nutrition Notes Initial or Follow up Reassessment Current Diagnosis Acute Kidney Injury,Decubitus( Pressure Ulcer),Sepsis, Hypertension,Respiratory Failure,Hyperlipidemia Other Pertinent Diagnosis AMS, MRSA, Encephalopathy, Metabiloc Acidosis, pneu ,FTT Current Diet Promote at 80 ml/hr Labs/Tests Na 144 BUN 23 Cr 0.4 Pertinent Medications D5w at 65 ml/hr Vancomycin Height 6 ft 2 in Weight 131.6 kg [place] Body Weight (kg) 86.36 BMI 37.2 Weight change and time frame wt fluctuations Weight Status Obese Subjective/Other Information FU for TF tolerance. Observed Promote running at goal rate and pt tolerating. Percent of energy/protein needs met: 100%/90% Burn Absent Trauma Absent GI Symptoms Diarrhea Difficulty In Swallowing,Chewing Skin Integrity/Comment Multiple pressure ulcer,1 infected Current % PO Negligible Minimum of two criteria No Fluid Accumulation Moderate to Severe (severe) #2 Nutrition Diagnosis Increased nutrient needs ( specify in comment below) Diagnosis Progress(for reassessment Continues documentation) #1 Nutrition Diagnosis Inadequate oral intake Diagnosis Progress(for reassessment Continues documentation) Is patient on ventilator? Yes Is Patient Ambulatory and/or Out of Bed No REE-([place]-confined to bed) 2544.612 Kcal/Kg value to use for calculation 14 Approximate Energy Requirements Using 1842 kcal/Kg Calculation Used for Recommendations Kcal/kg Additional Notes protein needs: 133 - 167g(1.2 - 1.5 g/kgAdBW 111) Fluid needs 1 ml/kcal Nutrition Intervention Change Diet Order: Continue Nutrition Support: Promote at 80 ml/hr with a flush of 50 ml q4h Kcal 1,920 Protein (gm) 120 Fluid (mL) 1,611 Goal #1 TF tolerance Goal #2 Meet at least 75% EER and protein needs via TF Goal #3 wound healing Anticipated Discharge Needs: unable to determine at this time Follow-Up By: 11/20/20 Additional Comments FU for stable TF
[2020-11-19 02:55] LABS: ABG HCO3 26.9 mmol/L (20.0-26.0); ABG Methemoglobin 0.4 % (0.0-1.5); ABG Oxygen Saturation 96.4 % (95.0-99.0); ABG PCO2 43.4 mm Hg; ABG PH 7.41 pH Units (7.350-7.450); ABG PO2 72.4 mm Hg (80.0-90.0)
--- NOTE | 2020-11-19 03:02 | XRay Report ---
CHEST - 1 VIEW INDICATION: follow up respiratory failure COMPARISON: Yesterday FINDINGS: SUPPORT DEVICES: Stable support device positioning. HEART: Stable cardiomediastinal silhouette. LUNGS/PLEURA: Persistent moderate patchy multifocal airspace disease. ADDITIONAL FINDINGS: None. IMPRESSION: Unchanged exam. Signer Name: Prashanth Colindres MD Signed: 11/19/2020 2:58 AM Workstation Name: [id number]
[2020-11-19] MEDS: VANCOMYCIN 250 MG/10 ML ORAL LIQD PO SCH ×4 (06:45→18:02)
[2020-11-19 06:48] LABS: Hematocrit 27.8 % (35.5-45.6); Mean Corpuscular HGB Conc 32 % (32-34); Mean Corpuscular Volume 100 fl (84-94); Platelet Count 275 K/mm3 (140-440); Red Blood Count 2.79 M/mm3 (3.65-5.03)
[2020-11-19 06:49] LABS: Red Cell Distribution Width 20.7 % (13.2-15.2)
[2020-11-19 06:59] LABS: INR 1.15 (0.87-1.13)
[2020-11-19 07:02] LABS: Blood Urea Nitrogen 21 mg/dL (9-20); Calcium 7.8 mg/dL (8.4-10.2); Hemolysis Index 3
[2020-11-19 07:10] LABS: BUN/Creatinine Ratio 53
[2020-11-19] MEDS: MIDODRINE 5 MG TAB PO SCH ×3 (07:51→16:45)
[2020-11-19] MEDS: ALBUTEROL 2.5 MG/3 ML NEBU IH SCH ×3 (08:11→21:11)
[2020-11-19] MEDS: SODIUM HYPOCHLORITE, DAKIN'S 1/2 STRENGTH (0.25%) 473 ML TOPICAL SOLN TP SCH (09:11)
[2020-11-19] MEDS: FAMOTIDINE 20 MG TAB PO SCH (09:12)
[2020-11-19] MEDS: fentaNYL 100 MCG/2 ML INJ IV PRN (09:51)
--- NOTE | 2020-11-19 10:44 | Progress Note ---
Assessment and Plan - Patient Problems (1) Chronic respiratory failure Current Visit: Yes Status: Acute Plan to address problem: 1) I had a long discussion with pt's next of kin, Jon Buckley. He was concerned that pt's deterioration was secondary to MRSA and that MRSA was transmitted to the pt during this hospitalization. I told Mr. Jon Buckley that I was only the surgeon and that he would need to talk to the hospitalist regarding these questions. Mr. Jon Buckley said he was not ready to give consent for pt's tracheostomy and PEG. He stated that he had to have some questions answered re MRSA first. I told Mr. Jon Buckley that the pt's consent would need to be signed no later than tomorrow if we are going to proceed with surgery on 11/21/20 which is my plan. Subjective Date of service: 11/19/20 Patient Reports: Positive: no new complaints Objective Vital Signs - 12hr 11/18/20 11/18/20 11/18/20 22:45 23:00 23:15 Temperature Pulse Rate 95 H 93 H 98 H Pulse Rate [ From Monitor] Respiratory 21 20 20 Rate Blood Pressure 121/73 141/79 138/84 O2 Sat by Pulse 99 97 96 Oximetry 11/18/20 11/18/20 11/18/20 23:29 23:30 23:45 Temperature Pulse Rate 92 H 94 H 98 H Pulse Rate [ From Monitor] Respiratory 20 20 20 Rate Blood Pressure 138/84 130/81 134/83 O2 Sat by Pulse 97 95 95 Oximetry 11/18/20 11/19/20 11/19/20 23:58 00:00 00:15 Temperature 97.4 F L Pulse Rate 100 H 88 112 H Pulse Rate [ 88 From Monitor] Respiratory 21 17 Rate Blood Pressure 134/83 135/82 145/85 O2 Sat by Pulse 98 99 99 Oximetry 11/19/20 11/19/20 11/19/20 00:30 00:45 01:00 Temperature Pulse Rate 99 H 109 H 101 H Pulse Rate [ From Monitor] Respiratory 19 20 21 Rate Blood Pressure 137/80 132/75 135/74 O2 Sat by Pulse 99 100 96 Oximetry 11/19/20 11/19/20 11/19/20 01:15 01:30 01:45 Temperature Pulse Rate 112 H 103 H 100 H Pulse Rate [ From Monitor] Respiratory 20 19 16 Rate Blood Pressure 142/78 132/80 132/83 O2 Sat by Pulse 98 96 99 Oximetry 11/19/20 11/19/20 11/19/20 02:00 02:15 02:31 Temperature Pulse Rate 107 H 96 H 111 H Pulse Rate [ From Monitor] Respiratory 20 21 20 Rate Blood Pressure 134/80 125/81 157/94 O2 Sat by Pulse 100 100 89 Oximetry 11/19/20 11/19/20 11/19/20 02:45 03:00 03:15 Temperature Pulse Rate 111 H 106 H 109 H Pulse Rate [ From Monitor] Respiratory 18 19 18 Rate Blood Pressure 162/83 134/84 125/87 O2 Sat by Pulse 94 92 93 Oximetry 11/19/20 11/19/20 11/19/20 03:31 03:45 03:56 Temperature 98.0 F Pulse Rate 110 H 103 H Pulse Rate [ From Monitor] Respiratory 26 H 20 Rate Blood Pressure 128/81 122/76 O2 Sat by Pulse 100 97 Oximetry 11/19/20 11/19/20 11/19/20 04:00 04:15 04:30 Temperature Pulse Rate 112 H 104 H 115 H Pulse Rate [ 112 H From Monitor] Respiratory 19 20 14 Rate Blood Pressure 129/88 137/81 126/78 O2 Sat by Pulse 100 100 97 Oximetry 11/19/20 11/19/20 11/19/20 04:45 05:00 05:16 Temperature Pulse Rate 102 H 112 H 101 H Pulse Rate [ From Monitor] Respiratory 20 13 23 Rate Blood Pressure 126/80 113/73 113/73 O2 Sat by Pulse 98 86 91 Oximetry 11/19/20 11/19/20 11/19/20 05:30 05:45 06:00 Temperature Pulse Rate 128 H 120 H 103 H Pulse Rate [ From Monitor] Respiratory 17 20 19 Rate Blood Pressure 141/102 133/89 130/80 O2 Sat by Pulse 100 100 Oximetry 11/19/20 11/19/20 11/19/20 06:15 06:30 06:45 Temperature Pulse Rate 113 H 107 H 107 H Pulse Rate [ From Monitor] Respiratory 15 15 20 Rate Blood Pressure 128/77 131/83 139/80 O2 Sat by Pulse 100 100 100 Oximetry 11/19/20 11/19/20 11/19/20 07:00 07:15 07:30 Temperature Pulse Rate 107 H 109 H 111 H Pulse Rate [ From Monitor] Respiratory 17 19 19 Rate Blood Pressure 133/74 140/83 122/80 O2 Sat by Pulse 100 100 100 Oximetry 11/19/20 11/19/20 11/19/20 07:45 07:48 07:59 Temperature 98.1 F Pulse Rate 110 H 115 H Pulse Rate [ From Monitor] Respiratory 20 Rate Blood Pressure 127/78 125/80 O2 Sat by Pulse 100 100 Oximetry 11/19/20 11/19/20 11/19/20 08:00 08:15 08:30 Temperature Pulse Rate 117 H 122 H 113 H Pulse Rate [ 118 H From Monitor] Respiratory 19 21 21 Rate Blood Pressure 125/80 131/90 131/90 O2 Sat by Pulse 100 100 100 Oximetry 11/19/20 11/19/20 11/19/20 08:45 09:00 09:15 Temperature Pulse Rate 108 H 113 H 114 H Pulse Rate [ From Monitor] Respiratory 20 20 20 Rate Blood Pressure 125/81 125/81 118/77 O2 Sat by Pulse 100 100 100 Oximetry 11/19/20 11/19/20 11/19/20 09:30 09:46 09:51 Temperature Pulse Rate 112 H 113 H Pulse Rate [ From Monitor] Respiratory 20 20 20 Rate Blood Pressure 121/85 132/71 O2 Sat by Pulse 90 89 Oximetry 11/19/20 11/19/20 11/19/20 10:00 10:15 10:30 Temperature Pulse Rate 109 H 113 H 130 H Pulse Rate [ From Monitor] Respiratory 18 20 18 Rate Blood Pressure 113/80 117/75 117/75 O2 Sat by Pulse 88 99 99 Oximetry - Labs 11/19/20 06:36 11/19/20 06:36 Diabetes panel 11/19/20 Range/Units 06:36 Sodium 140 (137-145) mmol/L Potassium 4.4 (3.6-5.0) mmol/L Chloride 106.2 (98-107) mmol/L Carbon Dioxide 28 (22-30) mmol/L BUN 21 H (9-20) mg/dL Creatinine 0.4 L (0.8-1.3) mg/dL Glucose 119 H (75-100) mg/dL Calcium 7.8 L (8.4-10.2) mg/dL Calcium panel 11/19/20 Range/Units 06:36 Calcium 7.8 L (8.4-10.2) mg/dL Pituitary panel 11/19/20 Range/Units 06:36 Sodium 140 (137-145) mmol/L Potassium 4.4 (3.6-5.0) mmol/L Chloride 106.2 (98-107) mmol/L Carbon Dioxide 28 (22-30) mmol/L BUN 21 H (9-20) mg/dL Creatinine 0.4 L (0.8-1.3) mg/dL Glucose 119 H (75-100) mg/dL Calcium 7.8 L (8.4-10.2) mg/dL Adrenal panel 11/19/20 Range/Units 06:36 Sodium 140 (137-145) mmol/L Potassium 4.4 (3.6-5.0) mmol/L Chloride 106.2 (98-107) mmol/L Carbon Dioxide 28 (22-30) mmol/L BUN 21 H (9-20) mg/dL Creatinine 0.4 L (0.8-1.3) mg/dL Glucose 119 H (75-100) mg/dL Calcium 7.8 L (8.4-10.2) mg/dL
[2020-11-19] MEDS: fentaNYL DRIP Premix 2,000 MCG/100 ML BAG IV SCH (11:14)
[2020-11-19] MEDS: VANCOMYCIN 2,000 MG in SODIUM CHLORIDE 0.9% 500 ML 500 ML IV SCH (12:52)
[2020-11-19] MEDS: AMIODARONE 900 MG in DEXTROSE 5% IN WATER 482 ML IV SCH (12:56)
[2020-11-19] MEDS ORDERED: FUROSEMIDE 20 MG/2 ML INJ IV ONE (13:00)
--- NOTE | 2020-11-19 15:17 | Progress Note ---
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 Ionized Calcium Urine pH Urine WBC (Auto) Vancomycin Trough 21.4 H 22.0 H Salicylates Acetaminophen Crossmatch 10/30/20 10/31/20 10/31/20 Unknown 02:54 03:42 WBC 21.1 H 23.0 H RBC 2.36 L Hgb 7.3 L 11.4 L D Hct 22.7 L 34.1 L D MCV 96 H MCH MCHC RDW 17.1 H 16.2 H Plt Count 73 L 33 L Lymph % (Auto) Seg Neutrophils % Seg Neuts % (Manual) Lymphocytes % (Manual) Nucleated RBC % Seg Neutrophils # Seg Neutrophils # Man Lymphocytes # (Manual) Monocytes # (Manual) PT INR ABG pH 7.517 H POC ABG pCO2 25.7 L POC ABG pO2 52.3 L ABG pO2 ABG HCO3 ABG O2 Saturation ABG Base Excess ABG Hemoglobin ABG Oxyhemoglobin 90.8 L ABG Sodium ABG Potassium ABG Chloride 109.0 H ABG Glucose 147 H Oxyhemoglobin Carboxyhemoglobin Sodium Potassium Chloride Carbon Dioxide BUN Creatinine Glucose POC Glucose Lactic Acid Calcium Phosphorus Magnesium Total Creatine Kinase Troponin T Total Protein Albumin Triglycerides LDL Cholesterol Direct HDL Cholesterol Arterial Blood Glucose 147 H Arterial Blood Ionized Calcium 4.0 L Urine pH Urine WBC (Auto) Vancomycin Trough Salicylates Acetaminophen Crossmatch 10/31/20 10/31/20 10/31/20 04:37 04:37 05:08 WBC 21.7 H RBC Hgb Hct MCV MCH MCHC RDW 16.1 H Plt Count 39 L Lymph % (Auto) Seg Neutrophils % Seg Neuts % (Manual) Lymphocytes % (Manual) Nucleated RBC % Seg Neutrophils # Seg Neutrophils # Man Lymphocytes # (Manual) Monocytes # (Manual) PT INR ABG pH POC ABG pCO2 POC ABG pO2 ABG pO2 ABG HCO3 ABG O2 Saturation ABG Base Excess ABG Hemoglobin ABG Oxyhemoglobin ABG Sodium ABG Potassium ABG Chloride ABG Glucose Oxyhemoglobin Carboxyhemoglobin Sodium Potassium Chloride 108.4 H Carbon Dioxide BUN 25 H Creatinine 0.5 L Glucose 140 H POC Glucose 140 H Lactic Acid Calcium 6.1 L Phosphorus Magnesium 1.50 L Total Creatine Kinase Troponin T Total Protein Albumin Triglycerides LDL Cholesterol Direct HDL Cholesterol Arterial Blood Glucose Arterial Blood Ionized Calcium Urine pH Urine WBC (Auto) Vancomycin Trough Salicylates Acetaminophen Crossmatch 10/31/20 10/31/20 10/31/20 11:12 18:50 23:21 WBC RBC Hgb Hct MCV MCH MCHC RDW Plt Count Lymph % (Auto) Seg Neutrophils % Seg Neuts % (Manual) Lymphocytes % (Manual) Nucleated RBC % Seg Neutrophils # Seg Neutrophils # Man Lymphocytes # (Manual) Monocytes # (Manual) PT INR ABG pH POC ABG pCO2 POC ABG pO2 ABG pO2 ABG HCO3 ABG O2 Saturation ABG Base Excess ABG Hemoglobin ABG Oxyhemoglobin ABG Sodium ABG Potassium ABG Chloride ABG Glucose Oxyhemoglobin Carboxyhemoglobin Sodium Potassium Chloride Carbon Dioxide BUN Creatinine Glucose POC Glucose 125 H 142 H 127 H Lactic Acid Calcium Phosphorus Magnesium Total Creatine Kinase Troponin T Total Protein Albumin Triglycerides LDL Cholesterol Direct HDL Cholesterol Arterial Blood Glucose Arterial Blood Ionized Calcium Urine pH Urine WBC (Auto) Vancomycin Trough Salicylates Acetaminophen Crossmatch 10/31/20 11/01/20 11/01/20 Unknown 03:40 04:21 WBC RBC Hgb Hct MCV MCH MCHC RDW Plt Count Lymph % (Auto) Seg Neutrophils % Seg Neuts % (Manual) Lymphocytes % (Manual) Nucleated RBC % Seg Neutrophils # Seg Neutrophils # Man Lymphocytes # (Manual) Monocytes # (Manual) PT INR ABG pH 7.489 H POC ABG pCO2 POC ABG pO2 ABG pO2 77.2 L ABG HCO3 ABG O2 Saturation ABG Base Excess ABG Hemoglobin 7.1 L ABG Oxyhemoglobin ABG Sodium ABG Potassium ABG Chloride ABG Glucose Oxyhemoglobin Carboxyhemoglobin Sodium Potassium 3.1 L Chloride 107.1 H Carbon Dioxide BUN 25 H Creatinine 0.5 L Glucose 148 H POC Glucose Lactic Acid 4.30 H* Calcium 6.0 L Phosphorus Magnesium Total Creatine Kinase Troponin T Total Protein Albumin Triglycerides LDL Cholesterol Direct HDL Cholesterol Arterial Blood Glucose Arterial Blood Ionized Calcium Urine pH Urine WBC (Auto) Vancomycin Trough Salicylates Acetaminophen Crossmatch 11/01/20 11/01/20 11/01/20 05:13 11:42 17:38 WBC RBC Hgb Hct MCV MCH MCHC RDW Plt Count Lymph % (Auto) Seg Neutrophils % Seg Neuts % (Manual) Lymphocytes % (Manual) Nucleated RBC % Seg Neutrophils # Seg Neutrophils # Man Lymphocytes # (Manual) Monocytes # (Manual) PT INR ABG pH POC ABG pCO2 POC ABG pO2 ABG pO2 ABG HCO3 ABG O2 Saturation ABG Base Excess ABG Hemoglobin ABG Oxyhemoglobin ABG Sodium ABG Potassium ABG Chloride ABG Glucose Oxyhemoglobin Carboxyhemoglobin Sodium Potassium Chloride Carbon Dioxide BUN Creatinine Glucose POC Glucose 139 H 139 H 161 H Lactic Acid Calcium Phosphorus Magnesium Total Creatine Kinase Troponin T Total Protein Albumin Triglycerides LDL Cholesterol Direct HDL Cholesterol Arterial Blood Glucose Arterial Blood Ionized Calcium Urine pH Urine WBC (Auto) Vancomycin Trough Salicylates Acetaminophen Crossmatch 11/01/20 11/01/20 11/02/20 23:20 Unknown 04:30 WBC 18.2 H RBC 3.27 L Hgb 9.9 L Hct 30.1 L D MCV MCH MCHC RDW 15.7 H Plt Count 34 L Lymph % (Auto) Seg Neutrophils % Seg Neuts % (Manual) Lymphocytes % (Manual) Nucleated RBC % Seg Neutrophils # Seg Neutrophils # Man Lymphocytes # (Manual) Monocytes # (Manual) PT INR ABG pH 7.456 H POC ABG pCO2 POC ABG pO2 ABG pO2 ABG HCO3 ABG O2 Saturation ABG Base Excess ABG Hemoglobin 9.2 L ABG Oxyhemoglobin ABG Sodium ABG Potassium ABG Chloride ABG Glucose Oxyhemoglobin Carboxyhemoglobin Sodium Potassium Chloride Carbon Dioxide BUN Creatinine Glucose POC Glucose 168 H Lactic Acid Calcium Phosphorus Magnesium Total Creatine Kinase Troponin T Total Protein Albumin Triglycerides LDL Cholesterol Direct HDL Cholesterol Arterial Blood Glucose Arterial Blood Ionized Calcium Urine pH Urine WBC (Auto) Vancomycin Trough Salicylates Acetaminophen Crossmatch 11/02/20 11/02/20 11/02/20 06:29 08:40 08:40 WBC 16.6 H RBC 2.87 L Hgb 8.8 L Hct 26.6 L MCV MCH MCHC RDW 15.8 H Plt Count 30 L Lymph % (Auto) Seg Neutrophils % Seg Neuts % (Manual) 97.0 H Lymphocytes % (Manual) 2.0 L Nucleated RBC % 1.0 H Seg Neutrophils # Seg Neutrophils # Man 16.1 H Lymphocytes # (Manual) 0.3 L Monocytes # (Manual) PT INR ABG pH POC ABG pCO2 POC ABG pO2 ABG pO2 ABG HCO3 ABG O2 Saturation ABG Base Excess ABG Hemoglobin ABG Oxyhemoglobin ABG Sodium ABG Potassium ABG Chloride ABG Glucose Oxyhemoglobin Carboxyhemoglobin Sodium Potassium 2.4 L* D Chloride 110.2 H Carbon Dioxide BUN 23 H Creatinine 0.4 L Glucose 154 H POC Glucose 131 H Lactic Acid Calcium 6.1 L Phosphorus Magnesium 1.50 L Total Creatine Kinase Troponin T Total Protein Albumin Triglycerides LDL Cholesterol Direct HDL Cholesterol Arterial Blood Glucose Arterial Blood Ionized Calcium Urine pH Urine WBC (Auto) Vancomycin Trough Salicylates Acetaminophen Crossmatch 11/02/20 11/02/20 11/02/20 13:17 17:25 18:05 WBC RBC Hgb Hct MCV MCH MCHC RDW Plt Count Lymph % (Auto) Seg Neutrophils % Seg Neuts % (Manual) Lymphocytes % (Manual) Nucleated RBC % Seg Neutrophils # Seg Neutrophils # Man Lymphocytes # (Manual) Monocytes # (Manual) PT INR ABG pH POC ABG pCO2 POC ABG pO2 ABG pO2 ABG HCO3 ABG O2 Saturation ABG Base Excess ABG Hemoglobin ABG Oxyhemoglobin ABG Sodium ABG Potassium ABG Chloride ABG Glucose Oxyhemoglobin Carboxyhemoglobin Sodium Potassium 3.1 L D Chloride Carbon Dioxide BUN Creatinine Glucose POC Glucose 134 H 140 H Lactic Acid Calcium Phosphorus Magnesium Total Creatine Kinase Troponin T Total Protein Albumin Triglycerides LDL Cholesterol Direct HDL Cholesterol Arterial Blood Glucose Arterial Blood Ionized Calcium Urine pH Urine WBC (Auto) Vancomycin Trough Salicylates Acetaminophen Crossmatch 11/02/20 11/03/20 11/03/20 23:36 04:15 05:07 WBC RBC Hgb Hct MCV MCH MCHC RDW Plt Count Lymph % (Auto) Seg Neutrophils % Seg Neuts % (Manual) Lymphocytes % (Manual) Nucleated RBC % Seg Neutrophils # Seg Neutrophils # Man Lymphocytes # (Manual) Monocytes # (Manual) PT INR ABG pH POC ABG pCO2 POC ABG pO2 ABG pO2 ABG HCO3 ABG O2 Saturation ABG Base Excess ABG Hemoglobin ABG Oxyhemoglobin ABG Sodium ABG Potassium ABG Chloride ABG Glucose Oxyhemoglobin Carboxyhemoglobin Sodium Potassium 3.0 L Chloride 111.8 H Carbon Dioxide BUN 24 H Creatinine 0.3 L Glucose 141 H POC Glucose 127 H 156 H Lactic Acid Calcium 5.8 L* Phosphorus Magnesium 1.60 L Total Creatine Kinase Troponin T Total Protein Albumin Triglycerides LDL Cholesterol Direct HDL Cholesterol Arterial Blood Glucose Arterial Blood Ionized Calcium Urine pH Urine WBC (Auto) Vancomycin Trough Salicylates Acetaminophen Crossmatch 11/03/20 11/03/20 11/04/20 11:14 17:31 00:17 WBC RBC Hgb Hct MCV MCH MCHC RDW Plt Count Lymph % (Auto) Seg Neutrophils % Seg Neuts % (Manual) Lymphocytes % (Manual) Nucleated RBC % Seg Neutrophils # Seg Neutrophils # Man Lymphocytes # (Manual) Monocytes # (Manual) PT INR ABG pH POC ABG pCO2 POC ABG pO2 ABG pO2 ABG HCO3 ABG O2 Saturation ABG Base Excess ABG Hemoglobin ABG Oxyhemoglobin ABG Sodium ABG Potassium ABG Chloride ABG Glucose Oxyhemoglobin Carboxyhemoglobin Sodium Potassium Chloride Carbon Dioxide BUN Creatinine Glucose POC Glucose 137 H 151 H 156 H Lactic Acid Calcium Phosphorus Magnesium Total Creatine Kinase Troponin T Total Protein Albumin Triglycerides LDL Cholesterol Direct HDL Cholesterol Arterial Blood Glucose Arterial Blood Ionized Calcium Urine pH Urine WBC (Auto) Vancomycin Trough Salicylates Acetaminophen Crossmatch 11/04/20 11/04/20 11/04/20 05:34 05:34 11:16 WBC 21.9 H RBC 2.67 L Hgb 8.2 L Hct 24.8 L MCV MCH MCHC RDW 15.6 H Plt Count 48 L Lymph % (Auto) Seg Neutrophils % Seg Neuts % (Manual) Lymphocytes % (Manual) Nucleated RBC % Seg Neutrophils # Seg Neutrophils # Man Lymphocytes # (Manual) Monocytes # (Manual) PT INR ABG pH POC ABG pCO2 POC ABG pO2 ABG pO2 ABG HCO3 ABG O2 Saturation ABG Base Excess ABG Hemoglobin ABG Oxyhemoglobin ABG Sodium ABG Potassium ABG Chloride ABG Glucose Oxyhemoglobin Carboxyhemoglobin Sodium 146 H Potassium Chloride 114.6 H Carbon Dioxide BUN 29 H Creatinine 0.3 L Glucose 173 H POC Glucose 156 H Lactic Acid Calcium 5.7 L* Phosphorus Magnesium Total Creatine Kinase Troponin T Total Protein Albumin Triglycerides LDL Cholesterol Direct HDL Cholesterol Arterial Blood Glucose Arterial Blood Ionized Calcium Urine pH Urine WBC (Auto) Vancomycin Trough Salicylates Acetaminophen Crossmatch 11/04/20 11/04/20 11/04/20 11:42 17:18 23:12 WBC RBC Hgb Hct MCV MCH MCHC RDW Plt Count Lymph % (Auto) Seg Neutrophils % Seg Neuts % (Manual) Lymphocytes % (Manual) Nucleated RBC % Seg Neutrophils # Seg Neutrophils # Man Lymphocytes # (Manual) Monocytes # (Manual) PT INR ABG pH 7.525 H POC ABG pCO2 28.9 L POC ABG pO2 64.3 L ABG pO2 ABG HCO3 ABG O2 Saturation ABG Base Excess ABG Hemoglobin 8.2 L ABG Oxyhemoglobin ABG Sodium ABG Potassium 3.3 L ABG Chloride 115.0 H ABG Glucose 165 H Oxyhemoglobin Carboxyhemoglobin Sodium Potassium Chloride Carbon Dioxide BUN Creatinine Glucose POC Glucose 144 H 155 H Lactic Acid Calcium Phosphorus Magnesium Total Creatine Kinase Troponin T Total Protein Albumin Triglycerides LDL Cholesterol Direct HDL Cholesterol Arterial Blood Glucose 165 H Arterial Blood Ionized Calcium 4.0 L Urine pH Urine WBC (Auto) Vancomycin Trough Salicylates Acetaminophen Crossmatch 11/05/20 11/05/20 11/05/20 04:48 04:48 05:57 WBC 17.4 H RBC 2.49 L Hgb 7.8 L Hct 23.5 L MCV MCH MCHC RDW 16.0 H Plt Count 69 L Lymph % (Auto) Seg Neutrophils % Seg Neuts % (Manual) Lymphocytes % (Manual) Nucleated RBC % Seg Neutrophils # Seg Neutrophils # Man Lymphocytes # (Manual) Monocytes # (Manual) PT INR ABG pH POC ABG pCO2 POC ABG pO2 ABG pO2 ABG HCO3 ABG O2 Saturation ABG Base Excess ABG Hemoglobin ABG Oxyhemoglobin ABG Sodium ABG Potassium ABG Chloride ABG Glucose Oxyhemoglobin Carboxyhemoglobin Sodium 147 H Potassium 3.5 L Chloride 115.4 H Carbon Dioxide BUN 34 H Creatinine 0.3 L Glucose 154 H POC Glucose 146 H Lactic Acid Calcium 6.1 L Phosphorus 2.00 L Magnesium Total Creatine Kinase Troponin T Total Protein Albumin Triglycerides LDL Cholesterol Direct HDL Cholesterol Arterial Blood Glucose Arterial Blood Ionized Calcium Urine pH Urine WBC (Auto) Vancomycin Trough Salicylates Acetaminophen Crossmatch 11/05/20 11/05/20 11/05/20 11:33 17:52 23:37 WBC RBC Hgb Hct MCV MCH MCHC RDW Plt Count Lymph % (Auto) Seg Neutrophils % Seg Neuts % (Manual) Lymphocytes % (Manual) Nucleated RBC % Seg Neutrophils # Seg Neutrophils # Man Lymphocytes # (Manual) Monocytes # (Manual) PT INR ABG pH POC ABG pCO2 POC ABG pO2 ABG pO2 ABG HCO3 ABG O2 Saturation ABG Base Excess ABG Hemoglobin ABG Oxyhemoglobin ABG Sodium ABG Potassium ABG Chloride ABG Glucose Oxyhemoglobin Carboxyhemoglobin Sodium Potassium Chloride Carbon Dioxide BUN Creatinine Glucose POC Glucose 144 H 136 H 151 H Lactic Acid Calcium Phosphorus Magnesium Total Creatine Kinase Troponin T Total Protein Albumin Triglycerides LDL Cholesterol Direct HDL Cholesterol Arterial Blood Glucose Arterial Blood Ionized Calcium Urine pH Urine WBC (Auto) Vancomycin Trough Salicylates Acetaminophen Crossmatch 0411/06/20 11/06/20 05:36 06:45 06:45 WBC 15.0 H RBC 2.33 L Hgb 7.2 L Hct 22.1 L MCV 95 H MCH MCHC RDW 16.2 H Plt Count 103 L Lymph % (Auto) Seg Neutrophils % Seg Neuts % (Manual) Lymphocytes % (Manual) Nucleated RBC % Seg Neutrophils # Seg Neutrophils # Man Lymphocytes # (Manual) Monocytes # (Manual) PT INR ABG pH POC ABG pCO2 POC ABG pO2 ABG pO2 ABG HCO3 ABG O2 Saturation ABG Base Excess ABG Hemoglobin ABG Oxyhemoglobin ABG Sodium ABG Potassium ABG Chloride ABG Glucose Oxyhemoglobin Carboxyhemoglobin Sodium 148 H Potassium Chloride 118.2 H Carbon Dioxide BUN 32 H Creatinine 0.4 L Glucose 153 H POC Glucose 140 H Lactic Acid Calcium 6.4 L Phosphorus 0.90 L* D Magnesium Total Creatine Kinase Troponin T Total Protein 5.0 L Albumin 1.4 L Triglycerides LDL Cholesterol Direct HDL Cholesterol Arterial Blood Glucose Arterial Blood Ionized Calcium Urine pH Urine WBC (Auto) Vancomycin Trough Salicylates Acetaminophen Crossmatch 11/06/20 11/06/20 11/06/20 11:32 17:37 23:19 WBC RBC Hgb Hct MCV MCH MCHC RDW Plt Count Lymph % (Auto) Seg Neutrophils % Seg Neuts % (Manual) Lymphocytes % (Manual) Nucleated RBC % Seg Neutrophils # Seg Neutrophils # Man Lymphocytes # (Manual) Monocytes # (Manual) PT INR ABG pH POC ABG pCO2 POC ABG pO2 ABG pO2 ABG HCO3 ABG O2 Saturation ABG Base Excess ABG Hemoglobin ABG Oxyhemoglobin ABG Sodium ABG Potassium ABG Chloride ABG Glucose Oxyhemoglobin Carboxyhemoglobin Sodium Potassium Chloride Carbon Dioxide BUN Creatinine Glucose POC Glucose 132 H 133 H 145 H Lactic Acid Calcium Phosphorus Magnesium Total Creatine Kinase Troponin T Total Protein Albumin Triglycerides LDL Cholesterol Direct HDL Cholesterol Arterial Blood Glucose Arterial Blood Ionized Calcium Urine pH Urine WBC (Auto) Vancomycin Trough Salicylates Acetaminophen Crossmatch 11/07/20 11/07/20 11/07/20 12:55 16:45 16:45 WBC 12.0 H RBC 3.63 L Hgb 11.4 L D Hct MCV 104 H MCH MCHC 30 L RDW 18.0 H Plt Count 133 L Lymph % (Auto) Seg Neutrophils % Seg Neuts % (Manual) Lymphocytes % (Manual) Nucleated RBC % Seg Neutrophils # Seg Neutrophils # Man Lymphocytes # (Manual) Monocytes # (Manual) PT INR ABG pH POC ABG pCO2 POC ABG pO2 ABG pO2 ABG HCO3 ABG O2 Saturation ABG Base Excess ABG Hemoglobin 7.7 L ABG Oxyhemoglobin ABG Sodium ABG Potassium ABG Chloride ABG Glucose Oxyhemoglobin 94.9 L Carboxyhemoglobin Sodium 149 H Potassium Chloride 119.8 H Carbon Dioxide BUN 31 H Creatinine 0.4 L Glucose 130 H POC Glucose Lactic Acid Calcium 6.5 L Phosphorus Magnesium Total Creatine Kinase Troponin T Total Protein Albumin Triglycerides LDL Cholesterol Direct HDL Cholesterol Arterial Blood Glucose Arterial Blood Ionized Calcium Urine pH Urine WBC (Auto) Vancomycin Trough Salicylates Acetaminophen Crossmatch 11/07/20 11/08/20 11/08/20 17:23 00:12 06:11 WBC RBC Hgb Hct MCV MCH MCHC RDW Plt Count Lymph % (Auto) Seg Neutrophils % Seg Neuts % (Manual) Lymphocytes % (Manual) Nucleated RBC % Seg Neutrophils # Seg Neutrophils # Man Lymphocytes # (Manual) Monocytes # (Manual) PT INR ABG pH POC ABG pCO2 POC ABG pO2 ABG pO2 ABG HCO3 ABG O2 Saturation ABG Base Excess ABG Hemoglobin ABG Oxyhemoglobin ABG Sodium ABG Potassium ABG Chloride ABG Glucose Oxyhemoglobin Carboxyhemoglobin Sodium Potassium Chloride Carbon Dioxide BUN Creatinine Glucose POC Glucose 115 H 129 H 109 H Lactic Acid Calcium Phosphorus Magnesium Total Creatine Kinase Troponin T Total Protein Albumin Triglycerides LDL Cholesterol Direct HDL Cholesterol Arterial Blood Glucose Arterial Blood Ionized Calcium Urine pH Urine WBC (Auto) Vancomycin Trough Salicylates Acetaminophen Crossmatch 11/08/20 11/08/20 11/08/20 17:36 23:49 23:58 WBC RBC Hgb Hct MCV MCH MCHC RDW Plt Count Lymph % (Auto) Seg Neutrophils % Seg Neuts % (Manual) Lymphocytes % (Manual) Nucleated RBC % Seg Neutrophils # Seg Neutrophils # Man Lymphocytes # (Manual) Monocytes # (Manual) PT INR ABG pH POC ABG pCO2 POC ABG pO2 ABG pO2 ABG HCO3 ABG O2 Saturation ABG Base Excess ABG Hemoglobin ABG Oxyhemoglobin ABG Sodium ABG Potassium ABG Chloride ABG Glucose Oxyhemoglobin Carboxyhemoglobin Sodium Potassium Chloride Carbon Dioxide BUN Creatinine Glucose 138 H POC Glucose 38 L 36 L Lactic Acid Calcium Phosphorus Magnesium Total Creatine Kinase Troponin T Total Protein Albumin Triglycerides LDL Cholesterol Direct HDL Cholesterol Arterial Blood Glucose Arterial Blood Ionized Calcium Urine pH Urine WBC (Auto) Vancomycin Trough Salicylates Acetaminophen Crossmatch 11/09/20 11/09/20 11/09/20 05:33 06:00 06:00 WBC 13.1 H RBC 2.35 L Hgb 7.6 L D Hct 22.9 L D MCV 97 H MCH MCHC RDW 16.8 H Plt Count Lymph % (Auto) 9.1 L Seg Neutrophils % 84.8 H Seg Neuts % (Manual) Lymphocytes % (Manual) Nucleated RBC % Seg Neutrophils # 11.1 H Seg Neutrophils # Man Lymphocytes # (Manual) Monocytes # (Manual) PT INR ABG pH POC ABG pCO2 POC ABG pO2 ABG pO2 ABG HCO3 ABG O2 Saturation ABG Base Excess ABG Hemoglobin ABG Oxyhemoglobin ABG Sodium ABG Potassium ABG Chloride ABG Glucose Oxyhemoglobin Carboxyhemoglobin Sodium 150 H Potassium 3.4 L D Chloride 119.2 H Carbon Dioxide BUN 30 H Creatinine 0.4 L Glucose 137 H POC Glucose 58 L Lactic Acid Calcium 7.2 L Phosphorus Magnesium Total Creatine Kinase Troponin T Total Protein Albumin Triglycerides LDL Cholesterol Direct HDL Cholesterol Arterial Blood Glucose Arterial Blood Ionized Calcium Urine pH Urine WBC (Auto) Vancomycin Trough Salicylates Acetaminophen Crossmatch 11/09/20 11/09/20 11/10/20 06:08 22:16 13:46 WBC 16.1 H RBC 2.52 L Hgb 8.1 L Hct 25.2 L MCV 100 H MCH MCHC RDW 18.2 H Plt Count Lymph % (Auto) Seg Neutrophils % Seg Neuts % (Manual) 90.0 H Lymphocytes % (Manual) 3.0 L Nucleated RBC % Seg Neutrophils # Seg Neutrophils # Man 14.5 H Lymphocytes # (Manual) 0.5 L Monocytes # (Manual) 1.1 H PT INR ABG pH POC ABG pCO2 POC ABG pO2 ABG pO2 ABG HCO3 ABG O2 Saturation ABG Base Excess ABG Hemoglobin ABG Oxyhemoglobin ABG Sodium ABG Potassium ABG Chloride ABG Glucose Oxyhemoglobin Carboxyhemoglobin Sodium Potassium Chloride Carbon Dioxide BUN Creatinine Glucose POC Glucose 122 H 120 H Lactic Acid Calcium Phosphorus Magnesium Total Creatine Kinase Troponin T Total Protein Albumin Triglycerides LDL Cholesterol Direct HDL Cholesterol Arterial Blood Glucose Arterial Blood Ionized Calcium Urine pH Urine WBC (Auto) Vancomycin Trough Salicylates Acetaminophen Crossmatch 11/10/20 11/10/20 11/11/20 13:46 15:59 11:43 WBC RBC Hgb Hct MCV MCH MCHC RDW Plt Count Lymph % (Auto) Seg Neutrophils % Seg Neuts % (Manual) Lymphocytes % (Manual) Nucleated RBC % Seg Neutrophils # Seg Neutrophils # Man Lymphocytes # (Manual) Monocytes # (Manual) PT INR ABG pH POC ABG pCO2 POC ABG pO2 ABG pO2 ABG HCO3 ABG O2 Saturation ABG Base Excess ABG Hemoglobin ABG Oxyhemoglobin ABG Sodium ABG Potassium ABG Chloride ABG Glucose Oxyhemoglobin Carboxyhemoglobin Sodium 153 H Potassium Chloride 120.6 H Carbon Dioxide BUN 27 H Creatinine 0.3 L Glucose 112 H POC Glucose 40 L 124 H Lactic Acid Calcium 6.8 L Phosphorus Magnesium Total Creatine Kinase Troponin T Total Protein Albumin Triglycerides LDL Cholesterol Direct HDL Cholesterol Arterial Blood Glucose Arterial Blood Ionized Calcium Urine pH Urine WBC (Auto) Vancomycin Trough Salicylates Acetaminophen Crossmatch 11/11/20 11/11/20 11/11/20 14:38 14:38 14:38 WBC 13.8 H RBC 2.43 L Hgb 7.6 L Hct 24.0 L MCV 99 H MCH MCHC RDW 18.0 H Plt Count Lymph % (Auto) Seg Neutrophils % Seg Neuts % (Manual) Lymphocytes % (Manual) Nucleated RBC % Seg Neutrophils # Seg Neutrophils # Man Lymphocytes # (Manual) Monocytes # (Manual) PT 15.0 H INR 1.18 H ABG pH POC ABG pCO2 POC ABG pO2 ABG pO2 ABG HCO3 ABG O2 Saturation ABG Base Excess ABG Hemoglobin ABG Oxyhemoglobin ABG Sodium ABG Potassium ABG Chloride ABG Glucose Oxyhemoglobin Carboxyhemoglobin Sodium 154 H Potassium 3.1 L D Chloride 122.1 H Carbon Dioxide BUN 26 H Creatinine 0.4 L Glucose 140 H POC Glucose Lactic Acid Calcium 7.3 L Phosphorus Magnesium Total Creatine Kinase Troponin T Total Protein Albumin Triglycerides LDL Cholesterol Direct HDL Cholesterol Arterial Blood Glucose Arterial Blood Ionized Calcium Urine pH Urine WBC (Auto) Vancomycin Trough Salicylates Acetaminophen Crossmatch 11/11/20 11/11/20 11/12/20 18:39 18:42 00:03 WBC RBC Hgb Hct MCV MCH MCHC RDW Plt Count Lymph % (Auto) Seg Neutrophils % Seg Neuts % (Manual) Lymphocytes % (Manual) Nucleated RBC % Seg Neutrophils # Seg Neutrophils # Man Lymphocytes # (Manual) Monocytes # (Manual) PT INR ABG pH POC ABG pCO2 POC ABG pO2 ABG pO2 ABG HCO3 ABG O2 Saturation ABG Base Excess ABG Hemoglobin ABG Oxyhemoglobin ABG Sodium ABG Potassium ABG Chloride ABG Glucose Oxyhemoglobin Carboxyhemoglobin Sodium Potassium Chloride Carbon Dioxide BUN Creatinine Glucose POC Glucose 45 L 66 L 108 H Lactic Acid Calcium Phosphorus Magnesium Total Creatine Kinase Troponin T Total Protein Albumin Triglycerides LDL Cholesterol Direct HDL Cholesterol Arterial Blood Glucose Arterial Blood Ionized Calcium Urine pH Urine WBC (Auto) Vancomycin Trough Salicylates Acetaminophen Crossmatch 11/12/20 11/12/20 11/12/20 05:44 08:33 08:33 WBC 13.4 H RBC 2.35 L Hgb 7.5 L Hct 23.7 L MCV 101 H MCH MCHC RDW 19.7 H Plt Count Lymph % (Auto) Seg Neutrophils % Seg Neuts % (Manual) Lymphocytes % (Manual) Nucleated RBC % Seg Neutrophils # Seg Neutrophils # Man Lymphocytes # (Manual) Monocytes # (Manual) PT INR ABG pH POC ABG pCO2 POC ABG pO2 ABG pO2 ABG HCO3 ABG O2 Saturation ABG Base Excess ABG Hemoglobin ABG Oxyhemoglobin ABG Sodium ABG Potassium ABG Chloride ABG Glucose Oxyhemoglobin Carboxyhemoglobin Sodium 154 H Potassium 2.9 L* Chloride 121.4 H Carbon Dioxide BUN 26 H Creatinine 0.4 L Glucose 153 H POC Glucose 114 H Lactic Acid Calcium 7.3 L Phosphorus Magnesium Total Creatine Kinase Troponin T Total Protein Albumin Triglycerides LDL Cholesterol Direct HDL Cholesterol Arterial Blood Glucose Arterial Blood Ionized Calcium Urine pH Urine WBC (Auto) Vancomycin Trough Salicylates Acetaminophen Crossmatch 11/12/20 11/12/20 11/13/20 11:38 17:17 05:28 WBC RBC Hgb Hct MCV MCH MCHC RDW Plt Count Lymph % (Auto) Seg Neutrophils % Seg Neuts % (Manual) Lymphocytes % (Manual) Nucleated RBC % Seg Neutrophils # Seg Neutrophils # Man Lymphocytes # (Manual) Monocytes # (Manual) PT INR ABG pH POC ABG pCO2 51.4 H POC ABG pO2 41.7 L ABG pO2 ABG HCO3 ABG O2 Saturation ABG Base Excess ABG Hemoglobin 9.1 L ABG Oxyhemoglobin 72.2 L ABG Sodium 151.1 H ABG Potassium 3.2 L ABG Chloride 122.0 H ABG Glucose 191 H Oxyhemoglobin Carboxyhemoglobin Sodium Potassium Chloride Carbon Dioxide BUN Creatinine Glucose POC Glucose 125 H 127 H Lactic Acid Calcium Phosphorus Magnesium Total Creatine Kinase Troponin T Total Protein Albumin Triglycerides LDL Cholesterol Direct HDL Cholesterol Arterial Blood Glucose 191 H Arterial Blood Ionized Calcium Urine pH Urine WBC (Auto) Vancomycin Trough Salicylates Acetaminophen Crossmatch 11/13/20 11/13/20 11/13/20 10:46 23:15 23:15 WBC 12.2 H RBC 2.41 L Hgb 7.7 L Hct 24.5 L MCV 102 H MCH MCHC RDW 23.0 H Plt Count Lymph % (Auto) Seg Neutrophils % Seg Neuts % (Manual) Lymphocytes % (Manual) Nucleated RBC % Seg Neutrophils # Seg Neutrophils # Man Lymphocytes # (Manual) Monocytes # (Manual) PT INR ABG pH POC ABG pCO2 POC ABG pO2 ABG pO2 ABG HCO3 ABG O2 Saturation ABG Base Excess ABG Hemoglobin ABG Oxyhemoglobin ABG Sodium ABG Potassium ABG Chloride ABG Glucose Oxyhemoglobin Carboxyhemoglobin Sodium Potassium Chloride Carbon Dioxide BUN Creatinine Glucose POC Glucose 153 H Lactic Acid Calcium Phosphorus Magnesium Total Creatine Kinase Troponin T 0.123 H* Total Protein Albumin Triglycerides LDL Cholesterol Direct HDL Cholesterol Arterial Blood Glucose Arterial Blood Ionized Calcium Urine pH Urine WBC (Auto) Vancomycin Trough Salicylates Acetaminophen Crossmatch 11/13/20 11/13/20 11/14/20 23:15 Unknown 05:26 WBC RBC Hgb Hct MCV MCH MCHC RDW Plt Count Lymph % (Auto) Seg Neutrophils % Seg Neuts % (Manual) Lymphocytes % (Manual) Nucleated RBC % Seg Neutrophils # Seg Neutrophils # Man Lymphocytes # (Manual) Monocytes # (Manual) PT INR ABG pH 7.295 L POC ABG pCO2 56.0 H POC ABG pO2 49.1 L ABG pO2 ABG HCO3 ABG O2 Saturation ABG Base Excess ABG Hemoglobin 8.3 L ABG Oxyhemoglobin 77.1 L ABG Sodium 150.5 H ABG Potassium 3.3 L ABG Chloride 121.0 H ABG Glucose 187 H Oxyhemoglobin Carboxyhemoglobin Sodium 152 H Potassium 3.3 L Chloride 117.8 H Carbon Dioxide BUN 25 H Creatinine 0.4 L Glucose 123 H POC Glucose 46 L Lactic Acid Calcium 7.5 L Phosphorus Magnesium Total Creatine Kinase Troponin T Total Protein Albumin Triglycerides LDL Cholesterol Direct HDL Cholesterol Arterial Blood Glucose 187 H Arterial Blood Ionized Calcium Urine pH Urine WBC (Auto) Vancomycin Trough Salicylates Acetaminophen Crossmatch 11/14/20 11/14/20 11/14/20 06:26 22:26 22:26 WBC RBC 2.75 L Hgb 9.0 L Hct 27.8 L MCV 101 H MCH 33 H MCHC RDW 22.8 H Plt Count Lymph % (Auto) Seg Neutrophils % Seg Neuts % (Manual) Lymphocytes % (Manual) Nucleated RBC % Seg Neutrophils # Seg Neutrophils # Man Lymphocytes # (Manual) Monocytes # (Manual) PT INR ABG pH POC ABG pCO2 POC ABG pO2 ABG pO2 ABG HCO3 ABG O2 Saturation ABG Base Excess ABG Hemoglobin ABG Oxyhemoglobin ABG Sodium ABG Potassium ABG Chloride ABG Glucose Oxyhemoglobin Carboxyhemoglobin Sodium 147 H Potassium 3.3 L Chloride 114.3 H Carbon Dioxide BUN 23 H Creatinine 0.3 L Glucose 209 H POC Glucose 135 H Lactic Acid Calcium 7.4 L Phosphorus Magnesium Total Creatine Kinase Troponin T Total Protein Albumin Triglycerides LDL Cholesterol Direct HDL Cholesterol Arterial Blood Glucose Arterial Blood Ionized Calcium Urine pH Urine WBC (Auto) Vancomycin Trough Salicylates Acetaminophen Crossmatch 11/14/20 11/15/20 11/15/20 23:22 04:28 05:57 WBC RBC Hgb Hct MCV MCH MCHC RDW Plt Count Lymph % (Auto) Seg Neutrophils % Seg Neuts % (Manual) Lymphocytes % (Manual) Nucleated RBC % Seg Neutrophils # Seg Neutrophils # Man Lymphocytes # (Manual) Monocytes # (Manual) PT INR ABG pH POC ABG pCO2 POC ABG pO2 ABG pO2 ABG HCO3 ABG O2 Saturation ABG Base Excess ABG Hemoglobin ABG Oxyhemoglobin ABG Sodium ABG Potassium ABG Chloride ABG Glucose Oxyhemoglobin Carboxyhemoglobin Sodium 152 H Potassium Chloride 118.1 H Carbon Dioxide BUN 22 H Creatinine 0.3 L Glucose 190 H POC Glucose 136 H 151 H Lactic Acid Calcium 7.5 L Phosphorus Magnesium Total Creatine Kinase Troponin T Total Protein Albumin Triglycerides LDL Cholesterol Direct HDL Cholesterol Arterial Blood Glucose Arterial Blood Ionized Calcium Urine pH Urine WBC (Auto) Vancomycin Trough Salicylates Acetaminophen Crossmatch 11/15/20 11/15/20 11/15/20 11:40 16:56 21:53 WBC RBC Hgb Hct MCV MCH MCHC RDW Plt Count Lymph % (Auto) Seg Neutrophils % Seg Neuts % (Manual) Lymphocytes % (Manual) Nucleated RBC % Seg Neutrophils # Seg Neutrophils # Man Lymphocytes # (Manual) Monocytes # (Manual) PT INR ABG pH 7.457 H POC ABG pCO2 POC ABG pO2 ABG pO2 48.3 L ABG HCO3 26.1 H ABG O2 Saturation 82.9 L ABG Base Excess ABG Hemoglobin 9.7 L ABG Oxyhemoglobin ABG Sodium ABG Potassium ABG Chloride ABG Glucose Oxyhemoglobin 81.0 L Carboxyhemoglobin Sodium Potassium Chloride Carbon Dioxide BUN Creatinine Glucose POC Glucose 129 H 115 H Lactic Acid Calcium Phosphorus Magnesium Total Creatine Kinase Troponin T Total Protein Albumin Triglycerides LDL Cholesterol Direct HDL Cholesterol Arterial Blood Glucose Arterial Blood Ionized Calcium Urine pH Urine WBC (Auto) Vancomycin Trough Salicylates Acetaminophen Crossmatch 11/15/20 11/16/20 11/16/20 23:12 00:07 00:09 WBC RBC Hgb Hct MCV MCH MCHC RDW Plt Count Lymph % (Auto) Seg Neutrophils % Seg Neuts % (Manual) Lymphocytes % (Manual) Nucleated RBC % Seg Neutrophils # Seg Neutrophils # Man Lymphocytes # (Manual) Monocytes # (Manual) PT INR ABG pH POC ABG pCO2 POC ABG pO2 ABG pO2 95.1 H ABG HCO3 26.6 H ABG O2 Saturation ABG Base Excess ABG Hemoglobin 7.5 L ABG Oxyhemoglobin ABG Sodium ABG Potassium ABG Chloride ABG Glucose Oxyhemoglobin Carboxyhemoglobin Sodium Potassium Chloride Carbon Dioxide BUN Creatinine Glucose POC Glucose 13 L 153 H Lactic Acid Calcium Phosphorus Magnesium Total Creatine Kinase Troponin T Total Protein Albumin Triglycerides LDL Cholesterol Direct HDL Cholesterol Arterial Blood Glucose Arterial Blood Ionized Calcium Urine pH Urine WBC (Auto) Vancomycin Trough Salicylates Acetaminophen Crossmatch 11/16/20 11/16/20 11/16/20 03:43 04:00 04:00 WBC RBC 2.33 L Hgb 7.7 L Hct 24.5 L MCV 105 H MCH 33 H MCHC 31 L RDW 22.9 H Plt Count Lymph % (Auto) Seg Neutrophils % Seg Neuts % (Manual) Lymphocytes % (Manual) Nucleated RBC % Seg Neutrophils # Seg Neutrophils # Man Lymphocytes # (Manual) Monocytes # (Manual) PT INR ABG pH 7.348 L POC ABG pCO2 POC ABG pO2 ABG pO2 91.6 H ABG HCO3 26.3 H ABG O2 Saturation ABG Base Excess ABG Hemoglobin 7.3 L ABG Oxyhemoglobin ABG Sodium ABG Potassium ABG Chloride ABG Glucose Oxyhemoglobin Carboxyhemoglobin Sodium 148 H Potassium 3.5 L Chloride 115.9 H Carbon Dioxide BUN Creatinine 0.4 L Glucose 195 H POC Glucose Lactic Acid Calcium 7.6 L Phosphorus Magnesium Total Creatine Kinase Troponin T Total Protein Albumin Triglycerides LDL Cholesterol Direct HDL Cholesterol Arterial Blood Glucose Arterial Blood Ionized Calcium Urine pH Urine WBC (Auto) Vancomycin Trough Salicylates Acetaminophen Crossmatch 11/16/20 11/16/20 11/16/20 05:16 07:40 12:10 WBC RBC Hgb Hct MCV MCH MCHC RDW Plt Count Lymph % (Auto) Seg Neutrophils % Seg Neuts % (Manual) Lymphocytes % (Manual) Nucleated RBC % Seg Neutrophils # Seg Neutrophils # Man Lymphocytes # (Manual) Monocytes # (Manual) PT INR ABG pH POC ABG pCO2 POC ABG pO2 ABG pO2 ABG HCO3 ABG O2 Saturation ABG Base Excess ABG Hemoglobin ABG Oxyhemoglobin ABG Sodium ABG Potassium ABG Chloride ABG Glucose Oxyhemoglobin Carboxyhemoglobin Sodium Potassium Chloride Carbon Dioxide BUN Creatinine Glucose POC Glucose 61 L 122 H 140 H Lactic Acid Calcium Phosphorus Magnesium Total Creatine Kinase Troponin T Total Protein Albumin Triglycerides LDL Cholesterol Direct HDL Cholesterol Arterial Blood Glucose Arterial Blood Ionized Calcium Urine pH Urine WBC (Auto) Vancomycin Trough Salicylates Acetaminophen Crossmatch 11/16/20 11/16/20 11/17/20 17:14 23:40 04:30 WBC RBC Hgb Hct MCV MCH MCHC RDW Plt Count Lymph % (Auto) Seg Neutrophils % Seg Neuts % (Manual) Lymphocytes % (Manual) Nucleated RBC % Seg Neutrophils # Seg Neutrophils # Man Lymphocytes # (Manual) Monocytes # (Manual) PT INR ABG pH 7.470 H POC ABG pCO2 POC ABG pO2 75.4 L ABG pO2 ABG HCO3 ABG O2 Saturation ABG Base Excess ABG Hemoglobin 7 L ABG Oxyhemoglobin ABG Sodium ABG Potassium ABG Chloride 116.0 H ABG Glucose 161 H Oxyhemoglobin Carboxyhemoglobin Sodium Potassium Chloride Carbon Dioxide BUN Creatinine Glucose POC Glucose 139 H 151 H Lactic Acid Calcium Phosphorus Magnesium Total Creatine Kinase Troponin T Total Protein Albumin Triglycerides LDL Cholesterol Direct HDL Cholesterol Arterial Blood Glucose 161 H Arterial Blood Ionized Calcium Urine pH Urine WBC (Auto) Vancomycin Trough Salicylates Acetaminophen Crossmatch 11/17/20 11/17/20 11/17/20 09:50 09:50 11:10 WBC RBC 2.02 L Hgb 6.6 L Hct 20.2 L MCV 100 H MCH 33 H MCHC RDW 22.4 H Plt Count Lymph % (Auto) Seg Neutrophils % Seg Neuts % (Manual) Lymphocytes % (Manual) Nucleated RBC % Seg Neutrophils # Seg Neutrophils # Man Lymphocytes # (Manual) Monocytes # (Manual) PT INR ABG pH POC ABG pCO2 POC ABG pO2 ABG pO2 ABG HCO3 ABG O2 Saturation ABG Base Excess ABG Hemoglobin ABG Oxyhemoglobin ABG Sodium ABG Potassium ABG Chloride ABG Glucose Oxyhemoglobin Carboxyhemoglobin Sodium Potassium Chloride 111.8 H Carbon Dioxide BUN 23 H Creatinine 0.4 L Glucose 142 H POC Glucose Lactic Acid Calcium 7.3 L Phosphorus Magnesium Total Creatine Kinase Troponin T Total Protein Albumin Triglycerides LDL Cholesterol Direct HDL Cholesterol Arterial Blood Glucose Arterial Blood Ionized Calcium Urine pH Urine WBC (Auto) Vancomycin Trough Salicylates Acetaminophen Crossmatch See Detail 11/17/20 11/17/20 11/17/20 11:52 11:57 23:22 WBC RBC Hgb Hct MCV MCH MCHC RDW Plt Count Lymph % (Auto) Seg Neutrophils % Seg Neuts % (Manual) Lymphocytes % (Manual) Nucleated RBC % Seg Neutrophils # Seg Neutrophils # Man Lymphocytes # (Manual) Monocytes # (Manual) PT INR ABG pH POC ABG pCO2 POC ABG pO2 ABG pO2 ABG HCO3 ABG O2 Saturation ABG Base Excess ABG Hemoglobin ABG Oxyhemoglobin ABG Sodium ABG Potassium ABG Chloride ABG Glucose Oxyhemoglobin Carboxyhemoglobin Sodium Potassium Chloride Carbon Dioxide BUN Creatinine Glucose POC Glucose 42 L 114 H 63 L Lactic Acid Calcium Phosphorus Magnesium Total Creatine Kinase Troponin T Total Protein Albumin Triglycerides LDL Cholesterol Direct HDL Cholesterol Arterial Blood Glucose Arterial Blood Ionized Calcium Urine pH Urine WBC (Auto) Vancomycin Trough Salicylates Acetaminophen Crossmatch 11/17/20 11/18/20 11/18/20 23:27 04:06 04:45 WBC RBC 2.36 L Hgb 7.4 L Hct 23.4 L MCV 99 H MCH MCHC RDW 21.6 H Plt Count Lymph % (Auto) Seg Neutrophils % Seg Neuts % (Manual) Lymphocytes % (Manual) Nucleated RBC % Seg Neutrophils # Seg Neutrophils # Man Lymphocytes # (Manual) Monocytes # (Manual) PT INR ABG pH POC ABG pCO2 POC ABG pO2 67.7 L ABG pO2 ABG HCO3 ABG O2 Saturation ABG Base Excess ABG Hemoglobin 8.3 L ABG Oxyhemoglobin ABG Sodium ABG Potassium ABG Chloride 112.0 H ABG Glucose 143 H Oxyhemoglobin Carboxyhemoglobin Sodium Potassium Chloride Carbon Dioxide BUN Creatinine Glucose POC Glucose 124 H Lactic Acid Calcium Phosphorus Magnesium Total Creatine Kinase Troponin T Total Protein Albumin Triglycerides LDL Cholesterol Direct HDL Cholesterol Arterial Blood Glucose 143 H Arterial Blood Ionized Calcium 4.5 L Urine pH Urine WBC (Auto) Vancomycin Trough Salicylates Acetaminophen Crossmatch 11/18/20 11/18/20 11/18/20 04:45 05:56 23:46 WBC RBC Hgb Hct MCV MCH MCHC RDW Plt Count Lymph % (Auto) Seg Neutrophils % Seg Neuts % (Manual) Lymphocytes % (Manual) Nucleated RBC % Seg Neutrophils # Seg Neutrophils # Man Lymphocytes # (Manual) Monocytes # (Manual) PT INR ABG pH POC ABG pCO2 POC ABG pO2 ABG pO2 ABG HCO3 ABG O2 Saturation ABG Base Excess ABG Hemoglobin ABG Oxyhemoglobin ABG Sodium ABG Potassium ABG Chloride ABG Glucose Oxyhemoglobin Carboxyhemoglobin Sodium Potassium Chloride 107.9 H Carbon Dioxide BUN 23 H Creatinine 0.4 L Glucose 139 H POC Glucose 133 H 66 L Lactic Acid Calcium 7.6 L Phosphorus Magnesium Total Creatine Kinase Troponin T Total Protein Albumin Triglycerides LDL Cholesterol Direct HDL Cholesterol Arterial Blood Glucose Arterial Blood Ionized Calcium Urine pH Urine WBC (Auto) Vancomycin Trough Salicylates Acetaminophen Crossmatch 11/18/20 11/19/20 11/19/20 23:52 05:48 06:36 WBC RBC Hgb Hct MCV MCH MCHC RDW Plt Count Lymph % (Auto) Seg Neutrophils % Seg Neuts % (Manual) Lymphocytes % (Manual) Nucleated RBC % Seg Neutrophils # Seg Neutrophils # Man Lymphocytes # (Manual) Monocytes # (Manual) PT INR ABG pH POC ABG pCO2 POC ABG pO2 ABG pO2 ABG HCO3 ABG O2 Saturation ABG Base Excess ABG Hemoglobin ABG Oxyhemoglobin ABG Sodium ABG Potassium ABG Chloride ABG Glucose Oxyhemoglobin Carboxyhemoglobin Sodium Potassium Chloride Carbon Dioxide BUN 21 H Creatinine 0.4 L Glucose 119 H POC Glucose 118 H 108 H Lactic Acid Calcium 7.8 L Phosphorus Magnesium Total Creatine Kinase Troponin T Total Protein Albumin Triglycerides LDL Cholesterol Direct HDL Cholesterol Arterial Blood Glucose Arterial Blood Ionized Calcium Urine pH Urine WBC (Auto) Vancomycin Trough Salicylates Acetaminophen Crossmatch 11/19/20 11/19/20 11/19/20 06:36 06:36 Unknown WBC RBC 2.79 L Hgb 9.0 L Hct 27.8 L MCV 100 H MCH MCHC RDW 20.7 H Plt Count Lymph % (Auto) Seg Neutrophils % Seg Neuts % (Manual) Lymphocytes % (Manual) Nucleated RBC % Seg Neutrophils # Seg Neutrophils # Man Lymphocytes # (Manual) Monocytes # (Manual) PT INR 1.15 H ABG pH POC ABG pCO2 POC ABG pO2 ABG pO2 72.4 L ABG HCO3 26.9 H ABG O2 Saturation ABG Base Excess ABG Hemoglobin 8.5 L ABG Oxyhemoglobin ABG Sodium ABG Potassium ABG Chloride ABG Glucose Oxyhemoglobin 94.1 L Carboxyhemoglobin Sodium Potassium Chloride Carbon Dioxide BUN Creatinine Glucose POC Glucose Lactic Acid Calcium Phosphorus Magnesium Total Creatine Kinase Troponin T Total Protein Albumin Triglycerides LDL Cholesterol Direct HDL Cholesterol Arterial Blood Glucose Arterial Blood Ionized Calcium Urine pH Urine WBC (Auto) Vancomycin Trough Salicylates Acetaminophen Crossmatch Allied health notes reviewed: nursing
--- NOTE | 2020-11-19 15:19 | Progress Note ---
Assessment and Plan Cultures: 10/26/2020 tracheal aspirate culture: MRSA 10/26/2020 blood culture: Proteus 10/27/2020 urine culture: Mixed hien 07/17/2021 tracheal aspirate culture staph aureus A/P: 75-year-old male, long term resident with seizure disorder, hypertension, depression, hyperlipidemia, chronic encephalopathy was sent to the hospital with worsening mental status: #Septic shock: probably from pneumonia. #Acute hypoxic respiratory failure: back on the vent. #Proteus bacteremia: multifactorial from infected sacral decubitus ulcer, bilateral pneumonia, UTI. S/P abx. #Acute diarrhea: ? C. difficile, improved on vancomycin p.o. Diarrhea improved, Cdiff test was not able to be done. #Necrotic, infected sacral decubitus ulcer: underwent debridement 10/29/2020, also noted to have brittle coccyx consistent with osteomyelitis. #UTI: UA with significant pyuria. #FAZAL: resolved #PVD: SFA occlusion. Not a candidate for revascularization per vascular Recs: Continue vancomycin as empiric therapy for bilateral pneumonia - planned 8 days Extend course of p.o. vancomycin due to initiation of systemic antibiotics Overall, guarded prognosis Eliezer Jack MD [facility] ([facility] O: [phone] F: [phone] Subjective Date of service: 11/19/20 Principal diagnosis: Acute Resp Fail, Septic Shock, Sacral Ulcer, AF with RVR Interval history: Afebrile, normal white count. Remains on the vent Imaging personally reviewed: Chest x-ray: Persistent moderate patchy multifocal airspace disease Objective - Exam Narrative Exam: General appearance: alert in NAD on BiPAP Eyes: anicteric sclerae, moist conjunctivae; no lid-lag; PERRLA HENT: Normocephalic, Atraumatic; normal external ears, nares openNeck: supple, tracheal midline Lungs: Diminished breath sound bilaterally CV: RRR Abdomen: Soft, nontender Extremities: Bilateral upper extremity and lower extremity edema Skin: No rash. Extensive scrotal edema Psych: Not agitated Neuro: Alert, open eyes, follows commands - Constitutional Vitals: Vital Signs Temp Pulse Resp BP Pulse Ox 97.5 F L 100 H 14 133/79 93 11/19/20 12:34 11/19/20 14:30 11/19/20 14:30 11/19/20 14:30 11/19/20 14:30 Temperature -Last 24 Hours Temperature 97.5 F Temperature 98.1 F Temperature 98.0 F Temperature 97.4 F Temperature 98.5 F Temperature 98.5 F Temperature 98.2 F Temperature 98.6 F Temperature 98.7 F Temperature 98.8 F Temperature 98.8 F Temperature 97.8 F - Labs CBC & Chem 7: 11/19/20 06:36 11/19/20 06:36 Labs: Abnormal lab results 11/17/20 11/18/20 11/18/20 Range/Units 11:10 23:46 23:52 RBC (3.65-5.03) M/mm3 Hgb (11.8-15.2) gm/dl Hct (35.5-45.6) % MCV (84-94) fl RDW (13.2-15.2) % INR (0.87-1.13) ABG pO2 (80.0-90.0) mm Hg ABG HCO3 (20.0-26.0) mmol/L ABG Hemoglobin (14.0-18.0) gm/dl Oxyhemoglobin (95.0-99.0) % BUN (9-20) mg/dL Creatinine (0.8-1.3) mg/dL Glucose (75-100) mg/dL POC Glucose 66 L 118 H (70-105) mg/dL Calcium (8.4-10.2) mg/dL Crossmatch See Detail 11/19/20 11/19/20 11/19/20 Range/Units 05:48 06:36 06:36 RBC 2.79 L (3.65-5.03) M/mm3 Hgb 9.0 L (11.8-15.2) gm/dl Hct 27.8 L (35.5-45.6) % MCV 100 H (84-94) fl RDW 20.7 H (13.2-15.2) % INR (0.87-1.13) ABG pO2 (80.0-90.0) mm Hg ABG HCO3 (20.0-26.0) mmol/L ABG Hemoglobin (14.0-18.0) gm/dl Oxyhemoglobin (95.0-99.0) % BUN 21 H (9-20) mg/dL Creatinine 0.4 L (0.8-1.3) mg/dL Glucose 119 H (75-100) mg/dL POC Glucose 108 H (70-105) mg/dL Calcium 7.8 L (8.4-10.2) mg/dL Crossmatch 11/19/20 11/19/20 Range/Units 06:36 Unknown RBC (3.65-5.03) M/mm3 Hgb (11.8-15.2) gm/dl Hct (35.5-45.6) % MCV (84-94) fl RDW (13.2-15.2) % INR 1.15 H (0.87-1.13) ABG pO2 72.4 L (80.0-90.0) mm Hg ABG HCO3 26.9 H (20.0-26.0) mmol/L ABG Hemoglobin 8.5 L (14.0-18.0) gm/dl Oxyhemoglobin 94.1 L (95.0-99.0) % BUN (9-20) mg/dL Creatinine (0.8-1.3) mg/dL Glucose (75-100) mg/dL POC Glucose (70-105) mg/dL Calcium (8.4-10.2) mg/dL Crossmatch
--- NOTE | 2020-11-19 15:26 | Progress Note ---
Assessment and Plan The pt is a 75-year-old male [facility] resident with a past medical history of seizure disorder, hypertension, depression, hyperlipidemia, chronic encephalopathy. He is intubated and sedated on evaluation and thus HPI is obtained per the chart. Pt was sent to the hospital for evaluation of AMS. Following arrival, pt diagnosed with necrotic sacral ulcer, sepsis with septic shock requiring vasopressor support, UTI, bilateral PNA with acute respiratory failure requiring intubation, COVID-19 testing negative, anemia, FAZAL. Pt was reported to have SVT prehospital for which he received IV adenosine and cardiology was consulted. tte reviewed - EF 55-60%, no significant abnormalities. 11/19/20 Pt is intubated, unresponsive. Tele reviewed: Afib 110-120s. No events overnight. Afib with uncontrolled ventricular response. Continue to hold AV Yariel blocking agents in setting of bradycardic episodes. Resume Amiodarone gtt for rate control. Pt has had no bradycardic episodes overnight. No systemic AC at this time in setting of anemia requiring PRBC tx, thrombocytopenia and sacral ulcer. Elevated Troponin Considering pt's advanced age and comorbidities will plan for conservative cardiac management. Anemia requiring transfusion Continue to hold AC in setting of anemia requiring transfusions. Per sx recs maintain target Hgb>8gm/dL in anticipation of Open Trach & Peg. Acute Respiratory Failure Pt is intubated with ventilated respirations. Management per pulmonology. Open Trach & PEG anticipated for 11/21/20. Pneumonia ABx per ID. Tracheal aspirate is positive for MRSA Septic Shock Continue Levophed gtt as needed to support pressures. DVT Prophylaxis. Discontinue Lovenox DVT prophylaxis. No systemic AC at this time in setting of anemia requiring PRBC tx, thrombocytopenia and sacral ulcer Continue Sequential Compression Device Therapy. Will follow The patient has been seen in conjunction with Dr. Juliette Baldwin who agrees with the assessment and plan of care. The high probability of a clinically significant, sudden or life threatening deterioration of the system(s) required my full and direct attention, in tervention and personal management. The aggregate critical care time was [35] minutes. This time includes the following: [x] Data Review and interpretation [x] Patient assessment and monitoring of vital signs [x] Documentation [x] Medication orders and management - Patient Problems (1) AMS (altered mental status) Current Visit: Yes Status: Acute (2) Atrial fibrillation with RVR Current Visit: Yes Status: Acute Currently in SR with PJCs. No AC in setting of anemia. (3) Acute respiratory failure Current Visit: Yes Status: Acute (4) Bilateral pneumonia Current Visit: Yes Status: Acute (5) Sepsis Current Visit: Yes Status: Acute (6) Sepsis associated hypotension Current Visit: Yes Status: Acute Pt is requiring Levophed titration to maintain pressure (7) Sacral decubitus ulcer, stage IV Current Visit: Yes Status: Acute (8) UTI (urinary tract infection) Current Visit: Yes Status: Acute (9) FAZAL (acute kidney injury) Current Visit: Yes Status: Acute (10) Hypomagnesemia Current Visit: Yes Status: Acute (11) Anemia Current Visit: Yes Status: Acute (12) Thrombocytopenia Current Visit: Yes Status: Acute Subjective Date of service: 11/19/20 Principal diagnosis: Acute Resp Fail, Septic Shock, Sacral Ulcer, AF with RVR Interval history: Pt is intubated, unresponsive. Tele reviewed: Afib 110-120s. No events overnight. Objective Last Vital Signs Temp 97.5 F L 11/19/20 12:34 Pulse 100 H 11/19/20 14:30 Resp 14 11/19/20 14:30 BP 133/79 11/19/20 14:30 Pulse Ox 93 11/19/20 14:30 - Physical Examination General: Other (lethargic ) HEENT: Positive: Normocephaly Neck: Positive: neck supple, trachea midline Cardiac: Positive: irregularly irregular, S1/S2 Lungs: Positive: Ventilated Respirations Neuro: Positive: Grossly Intact, Other (lethargic) Abdomen: Positive: Soft Skin: Positive: Wound. Negative: Rash Musculoskeletal: No Pain Extremities: Present: upper extr. pulses, lower extr. pulses, edema, Other (chronic skin changes noted) - Labs and Meds Coagulation 11/19/20 Range/Units 06:36 PT 14.7 (12.2-14.9) Sec. INR 1.15 H (0.87-1.13) CBC 11/19/20 Range/Units 06:36 WBC 10.8 (4.5-11.0) K/mm3 RBC 2.79 L (3.65-5.03) M/mm3 Hgb 9.0 L (11.8-15.2) gm/dl Hct 27.8 L (35.5-45.6) % Plt Count 275 (140-440) K/mm3 Comprehensive Metabolic Panel 11/19/20 Range/Units 06:36 Sodium 140 (137-145) mmol/L Potassium 4.4 (3.6-5.0) mmol/L Chloride 106.2 (98-107) mmol/L Carbon Dioxide 28 (22-30) mmol/L BUN 21 H (9-20) mg/dL Creatinine 0.4 L (0.8-1.3) mg/dL Glucose 119 H (75-100) mg/dL Calcium 7.8 L (8.4-10.2) mg/dL - Imaging and Cardiology EKG: report reviewed, image reviewed Echo: report reviewed (10/28/2020- EF 55-60%, no significant valvular abnormalities) - Telemetry EKG Rhythm: Atrial Fibrillation - Allied health notes Allied health notes reviewed: nursing
--- NOTE | 2020-11-19 17:39 | Progress Note ---
<KARIHALIE RavenMinnie - Last Filed: 11/19/20 17:36> Assessment and Plan Assessment and plan: -ID, cardiology, CCM, surgery, vascular surgery, nephrology, surgery, WOCN consulted, appreciate recommendations -FAZAL, pneumonia, infected sacral wound, acute respiratory failure, leukocytosis, hypotension requiring vasopressor support -Antibiotic therapy -Trend CBC and BMP -10/26 tracheal aspirate with MRSA, 10/26 blood cultures x2 with Proteus mirabilis, 10/27 urine culture possible contaminant, 11/15: Trach aspirate positive for staph coccus aureus, 11/06 occult stool positive -On mechanical ventilation, wean as tolerated, VAP bundle, CPAP trials as tolerated -Wound care per nursing -Sedated with fentanyl -Midodrine, norepinephrine as needed -Vancomycin -S/p IVF resuscitation -HIT panel negative -Surgery consulted for trach/PEG placement (planned 11/21/2020); transfuse 1 unit PRBC on 11/18 per surgery request for goal hemoglobin greater than 8. -s/p 4 units PRBC during stay GI/DVT prophylaxis: Lovenox subq, SCDs to bilateral legs while in bed, PPI Dispo: ICU The high probability of a clinically significant, sudden or life threatening deterioration of the [pulmonary, cardiac] system(s) required my full and direct attention, intervention and personal management. The aggregate critical care time was [35] minutes. This time is in addition to time spent performing reported procedures but includes the following: [X] Data Review and interpretation [X] Patient assessment and monitoring of vital signs [X] Documentation [X] Medication orders and management History Interval history: This is a 75-year-old male who is a intermediate resident with seizure disorder, hypertension, depression, hyperlipidemia, hypoglycemia, dysphagia, and encephalopathy who presents to the emergency department on 10/26 via EMS for tachypnea, dry mucous membranes and hypoxia. Patient was hypotensive, febrile to 103 degrees and hypoxic in the emergency department therefore he was intubated and central IV access was obtained. Patient received 3.5 L of IV fluid in the emergency department. Patient was admitted to the hospital service with consults to CCM, surgery, WOCN and ID for Sepsis, acute kidney injury, urinary tract infection, acute respiratory failure, electrolyte imbalances, infected sacral wound and bilateral pneumonia. Sepsis Acute respiratory failure with Hypoxia Cardiovascular shock Infected sacral wound s/p debridement with surgery Generalized anasarca possible acute diastolic congestive heart failure Anemia s/p 3 units prbc Bilateral pleural effusion Right and left lung atelectasis secondary to mucous plug Proteus bacteremia MRSA pneumonia Urine tract infection Acute kidney injury with vasomotor Nephropathy Acute Diarrhea ?C.diff- Test was not peformed Leukocytosis SFA occlusion - Not a candidate for surgery per Vascular SVT- Resolved Hyperchloremia Hypocalcemia Lactic acidosis 10/27: Patient received additional 4 L LR for fluid resuscitation and CV monit oring was initiated. Patient is on Levophed. ID added Flagyl to vancomycin and cefepime. His trach aspirate grew staph coccus aureus. At the time my examination patient the fentanyl drip was held by RN and he was on 14 MCG of Levophed. This morning he was on assist control 450/20/6/.100. We will give additional bolus of fluids with goal CVP 10-12 and repeat labs in AM. Surgery was consulted to possible debridement. 10/28: Overnight it was noted that patient went into SVT and he was given ad enosine 6 mg/12 mg / 12 mg once and was started on a Cardizem drip after no response to amnio bolus and cardiology was consulted. Currently patient remains on Levophed drip and is hypotensive and received additional 2 L of bolus for goal CVP of 10-12. Infectious disease changed cefepime/Flagyl to meropenem for GNR in his blood cultures 09/04 and will continue vancomycin. Patient currently was not well controlled on max Cardizem and cardiology initiated amiodarone. Patient still is very tachycardic. Patient is hypomagnesemic and we will replete his Mg and recheck level. We will give the patient additional to complete resolve LR this afternoon. Patient has a standing order per [facility] to bolus the patient with LR for CVP goal of 10-12. This morning he is hyperchlormeic, metabolic acidotic (bicarb drip initiated) and his BUN/creatinine slightly elevated. Patient still remains lactic acidotic. 10/29: Patient's blood culture speciated to Proteus and his tracheal aspirate is MRSA. He is currently on ceftriaxone, Flagyl and vancomycin. Patient heart rate consistently is 110-150s and cardiology has given him an amiodarone bolus today and he remains on amiodarone drip. He looks much started on IV digoxin. This morning 4 L LR bolus was ordered and we will bolus an additional 4 L of LR this afternoon. Patient still has lactic acidosis, metabolic acidosis, leukocytosis and hyperchloremia. On examination this morning patient is more edematous and he remains on Levophed and amnio drip. 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 Remains on amio, levo and sedated with fentanyl. He is hypokalemic today which was repleted, h/h 02/18 and he is being type and crossed today with 2 units PRBC ordered to be transfused. Plt drop noted, heparin discontinued and HIT ordered. Bicarb gtt discontinued. No acute events overnight. 10/31: Patient hypomagnesemia today which was repleted and cardiology has changed his IV amiodarone to p.o. Patient will get albumin per [facility]. At the time my examination patient is on assist control 450/20/6/0.40. 11/03: At the time my examination patient is on assist control 450/20/6/0.25 and sedated with fentanyl and on Levophed at 4.Patient's leukocytosis is improving he received Albumin this weekend. Patient is hypokalemic, hypomagnesemic, hypocalcemic today. We will repeat his electrolytes and recheck a BMP in the a.m. Patient received 2 units PRBC on 10/30 and his hemoglobin has been trending down. We will recheck in the a.m. 11/04: At the time of my examination patient was on Levophed 3 mcg and on VZV/CPAP 450/20/6/0.35. Patient still has leukocytosis, respiratory alkalosis, hyponatremia, hypochloremia, hypocalcemia. Today his magnesium and potassium repleted with bolus of potassium 4/magnesium 2. He received 60 mcg KCl p.o., 40 mEq of KCl IV and 2 g of magnesium sulfate. We will recheck BMP and mag and a. m. Surgery has deemed the patient to unstable for further debulking. We also consulted vascular surgery for PVD as patient has discoloration to BLE /feet. 11/05: Vascular surgery will obtain bilateral lower extremity arterial duplex to evaluate arterial flow and recommends adding as FWF to tube feedings in assisting to wean off of vasopressors. Patient has hypokalemia, hypophosphatemia and normal to low magnesium. Magnesium, potassium and phosphate have been repleted. Patient still remains on ventilator support but on CPAP trial this morning. Patient HIT is still pending. This morning at the time of my examination patient was on assist-control 450/20/6/0.35 and he tolerated CPAP trial for 4 hours yesterday. He was on Levophed 0.5 and his rectal tube output was noted at 1000 mL. 11/06: This morning patient was on a CPAP trial and became hypoxic with SPO2 into the 80s and was switched back to assist control. Patient's vent settings are assist control tidal and 450, rate 20, PEEP 6, FiO2 0.25. Today patient has leukocytosis, hypernatremia, hyperchloremia, hypocalcemia and hypophosphatemia. We will repeat a phosphate. His free water flushes have been increased and his magnesium has been repleted again. Patient has been started on Lovenox given improvement in his platelet count and on midodrine to help keep Levophed off. Infectious disease will continue p.o. vancomycin for total of 10 days. 11/07: Patient failed his CPAP trial yesterday and has been placed on CPAP 10 again this morning by RT. Overnight patient was rested on assist control tolerance by 50, rate of 20, pressure support 6 and FiO2 30%. His lab work is still pending for this morning. On repeat his phosphorus was 4.50 yesterday and repletion was discontinued. 11/08/2020; patient is off pressors currently on midodrine. Patient is on ceftriaxone and vancomycin. Patient is on assist control. Patient was evaluated by vascular surgery for peripheral vascular disease with SFA occlusion and recommend no intervention at this time. Prognosis is guarded. Patient is on 2 L of intranasal oxygen. We will put speech therapy evaluation. 11/09/2020; patient is currently off pressors and on midodrine. Continue with ceftriaxone, Flagyl and vancomycin per ID recommendation. Patient's blood culture grew Proteus mirabilis and tracheal aspirate grew MRSA. Patient was evaluated by vascular surgery for PVD with SFA occlusion and recommend no intervention at this time. Patient is on 2 L of intranasal oxygen. Currently patient is on tube feeding and follow speech therapy evaluation. 11/10: Overnight noted to have increased RR, ? Awaiting speech eval considering patient still on Tube feeds. Continue to monitor Hypernatremia. Antibiotics today will be D109/14. Will continue discharge planning on discussion with CM. Patient nonrebreather. Possibly back on congestive heart failure will need ap propriate diuresis. Transferred back to [facility]. Discussed with production control coordinating clerk and also with cardiology. 11/11: Remains lethargic remains in respiratory distress chest x-ray shows right lung collapse likely secondary to mucous plug. Discussed with production control coordinating clerk will likely undergo a bronchoscopy today. We will also continue to monitor as we did suggest possible pleural effusion which we think may be less likely but if that seems to be the case we will send patient for thoracentesis following the bronchoscopy. Continue to monitor hemoglobin continue to monitor diarrhea antibiotics management per infectious disease. I did speak and update patient's cousin yesterday. Patient still with edema will await cardiology reevaluation for possible further diuresis. 11/12: Patient for Bronchoscopy today. Continue supportive care 11/13: Patient Clinically improving, tolerated Bronchoscopy yesterday. Awaiting am labs today. Overnight had bradycardia. Continue weaning oxygen. Discussed with cocoa room operator patient did have bronchial plug plus pleural effusion but will address. Will monitor serial x-rays. Discussed with nursing staff about my discussion with the brother. Continue supportive care. PER Brother,([phone] patient has had recurrent knee aspiration. Cardiology to re-evaluate today for Bradycardia noted overnight 11/14: Patient had a repeat bronchoscopy yesterday of the right lung due to mucous plug. Occupational Health Manager did have a conversation with the cousin as one of the considerations may be a trach due to recurrent pulmonary mucous plug and also significant debility for patient's overall medical condition. And his inability to maintain his airway. We will start him on a low round of D5 until diet is established. We will continue to monitor clinical status this morning. Plan discussed with nursing staff patient and also with roller coaster designer 11/15: Continues to show some improvement, will check CXR today. Wean oxygen as tolerated, will likely need Trach per pulmonary. WBC improving, will monitor Sodium level. Patient on dopamin. 11/16: Patient overnight required intubation due to worsening respiratory failure secondary to complete opacification of the right lung again. This has appeared to cleared up this morning following the intuabation. Cousin advised of the finding, he will try to get us all his records because he believes that the patient has had a trach done before but is not sure. Started on Pressors due to hypotension 11/17: Today general surgery was consulted for trach/PEG placement, patient grew staph and tracheal aspirate and his cefepime was stopped and [facility] ordered a trial dose of Lasix. At the time my examination patient was on 1 mcg of fentanyl and dopamine 5 mcg/kg per cardiology. He has hyperchloremia and his lab work and is anemic today at 6.6/20.2. Patient received 1 unit PRBC. We will obtain a CBC in the a.m. 11/18: No acute events reported overnight, patient was given Lasix again by [facility], surgery has requested transfusion of one 1 unit PRBC despite H/H being 7.4/23.4 and plans to do a tracheostomy and plans to perform PEG and trach placement on 11/21/2020. We will follow up BMP and CBC in the a.m. Coags ordered. 11/19: Patient's next of kin still Mr. Buckley's next of kin/POA is still undecided about trach/PEG, surgeon aware. [facility] has given the patient another dose of Lasix and he was noted to be in atrial fibrillation with RVR this morning. Cardiology is aware and they have opted to resume amiodarone drip for rate control. We will obtain a BMP in the a.m. Hospitalist Physical - Constitutional Vitals: Temp Pulse Resp BP Pulse Ox 98.6 F 112 H 22 150/81 93 11/19/20 16:31 11/19/20 17:16 11/19/20 17:16 11/19/20 17:16 11/19/20 17:16 General appearance: Present: no acute distress, other (Intubated, resting comfortably) - EENT Eyes: Present: PERRL, EOM intact ENT: hearing intact - Neck Neck: Absent: masses or JVD, cervical LAD - Respiratory Respiratory effort: normal Respiratory: bilateral: diminished - Cardiovascular Rhythm: irregularly irregular Heart Sounds: Present: S1 & S2. Absent: systolic murmur, diastolic murmur - Extremities Extremities: no ischemia, pulses intact, pulses symmetrical, normal temperature, normal color Extremity abnormal: edema (generalized), other (discolored toes) Peripheral Pulses: within normal limits - Abdominal General gastrointestinal: soft, non-tender, normal bowel sounds - Integumentary Integumentary: Present: warm, dry - Psychiatric Psychiatric: cooperative - Neurologic Neurologic: CNII-XII intact, no focal deficits - Allied Health Allied health notes reviewed: nursing, RT, social work HEART Score - HEART Score EKG: Non-specific Age: > 65 Risk factors: > 3 risk factors or hx of atherosclerotic disease Troponin: Troponin T 0.123 ng/mL (0.00-0.029) H* 11/13/20 23:15 Troponin: < normal limit - Critical Actions Critical Actions: 4-6 pts:12-16.6% risk of adverse cardiac event. Should be admitted Results - Labs CBC & Chem 7: 11/19/20 06:36 11/19/20 06:36 Labs: Laboratory Last Values WBC 10.8 K/mm3 (4.5-11.0) 11/19/20 06:36 RBC 2.79 M/mm3 (3.65-5.03) L 11/19/20 06:36 Hgb 9.0 gm/dl (11.8-15.2) L 11/19/20 06:36 Hct 27.8 % (35.5-45.6) L 11/19/20 06:36 MCV 100 fl (84-94) H 11/19/20 06:36 MCH 32 pg (28-32) 11/19/20 06:36 MCHC 32 % (32-34) 11/19/20 06:36 RDW 20.7 % (13.2-15.2) H 11/19/20 06:36 Plt Count 275 K/mm3 (140-440) 11/19/20 06:36 Lymph % (Auto) 9.1 % (13.4-35.0) L 11/09/20 06:00 [place] % (Auto) 5.4 % (0.0-7.3) 11/09/20 06:00 Eos % (Auto) 0.3 % (0.0-4.3) 11/09/20 06:00 Baso % (Auto) 0.4 % (0.0-1.8) 11/09/20 06:00 Lymph # (Auto) 1.2 K/mm3 (1.2-5.4) 11/09/20 06:00 [place] # (Auto) 0.7 K/mm3 (0.0-0.8) 11/09/20 06:00 Eos # (Auto) 0.0 K/mm3 (0.0-0.4) 11/09/20 06:00 Baso # (Auto) 0.0 K/mm3 (0.0-0.1) 11/09/20 06:00 Add Manual Diff Complete 11/10/20 13:46 Total Counted 100 11/10/20 13:46 Seg Neutrophils % 84.8 % (40.0-70.0) H 11/09/20 06:00 Seg Neuts % (Manual) 90.0 % (40.0-70.0) H 11/10/20 13:46 Band Neutrophils % 17.0 % 10/27/20 03:30 Lymphocytes % (Manual) 3.0 % (13.4-35.0) L 11/10/20 13:46 Monocytes % (Manual) 7.0 % (0.0-7.3) 11/10/20 13:46 Eosinophils % (Manual) 2.0 % (0.0-4.3) 10/27/20 03:30 Metamyelocytes % 4.0 % 10/27/20 03:30 Nucleated RBC % Not Reportable 11/10/20 13:46 Seg Neutrophils # 11.1 K/mm3 (1.8-7.7) H 11/09/20 06:00 Seg Neutrophils # Man 14.5 K/mm3 (1.8-7.7) H 11/10/20 13:46 Band Neutrophils # 0.0 K/mm3 11/10/20 13:46 Lymphocytes # (Manual) 0.5 K/mm3 (1.2-5.4) L 11/10/20 13:46 Abs React Lymphs (Man) 0.0 K/mm3 11/10/20 13:46 Monocytes # (Manual) 1.1 K/mm3 (0.0-0.8) H 11/10/20 13:46 Eosinophils # (Manual) 0.0 K/mm3 (0.0-0.4) 11/10/20 13:46 Basophils # (Manual) 0.0 K/mm3 (0.0-0.1) 11/10/20 13:46 Metamyelocytes # 0.0 K/mm3 11/10/20 13:46 Myelocytes # 0.0 K/mm3 11/10/20 13:46 Promyelocytes # 0.0 K/mm3 11/10/20 13:46 Blast Cells # 0.0 K/mm3 11/10/20 13:46 WBC Morphology Not Reportable 11/10/20 13:46 Hypersegmented Neuts Not Reportable 11/10/20 13:46 Hyposegmented Neuts Not Reportable 11/10/20 13:46 Hypogranular Neuts Not Reportable 11/10/20 13:46 Smudge Cells Not Reportable 11/10/20 13:46 Toxic Granulation Not Reportable 11/10/20 13:46 Toxic Vacuolation Not Reportable 11/10/20 13:46 Dohle Bodies Not Reportable 11/10/20 13:46 Pelger-Huet Anomaly Not Reportable 11/10/20 13:46 Kassi Rods Not Reportable 11/10/20 13:46 Platelet Estimate Not Reportable 11/10/20 13:46 Clumped Platelets Not Reportable 11/10/20 13:46 Plt Clumps, EDTA Not Reportable 11/10/20 13:46 Large Platelets Not Reportable 11/10/20 13:46 Giant Platelets Not Reportable 11/10/20 13:46 Platelet Satelliting Not Reportable 11/10/20 13:46 Plt Morphology Comment Not Reportable 11/10/20 13:46 RBC Morphology Not Reportable 11/10/20 13:46 Dimorphic RBCs Yes 11/10/20 13:46 Polychromasia Not Reportable 11/10/20 13:46 Hypochromasia Not Reportable 11/10/20 13:46 Poikilocytosis Not Reportable 11/10/20 13:46 Anisocytosis Not Reportable 11/10/20 13:46 Microcytosis Rare 11/10/20 13:46 Macrocytosis Rare 11/10/20 13:46 Spherocytes Not Reportable 11/10/20 13:46 Pappenheimer Bodies Not Reportable 11/10/20 13:46 Sickle Cells Not Reportable 11/10/20 13:46 Target Cells Not Reportable 11/10/20 13:46 Tear Drop Cells Not Reportable 11/10/20 13:46 Ovalocytes Not Reportable 11/10/20 13:46 Helmet Cells Not Reportable 11/10/20 13:46 [place] Bodies Not Reportable 11/10/20 13:46 [place] Rings Not Reportable 11/10/20 13:46 Rhea Cells Not Reportable 11/10/20 13:46 Bite Cells Not Reportable 11/10/20 13:46 Crenated Cell Not Reportable 11/10/20 13:46 Elliptocytes Not Reportable 11/10/20 13:46 Acanthocytes (Spur) Not Reportable 11/10/20 13:46 Rouleaux Not Reportable 11/10/20 13:46 Hemoglobin C Crystals Not Reportable 11/10/20 13:46 Schistocytes Not Reportable 11/10/20 13:46 Malaria parasites Not Reportable 11/10/20 13:46 Richard Bodies Not Reportable 11/10/20 13:46 Hem Pathologist Commnt No 11/10/20 13:46 PT 14.7 Sec. (12.2-14.9) 11/19/20 06:36 INR 1.15 (0.87-1.13) H 11/19/20 06:36 APTT 27.9 Sec. (24.2-36.6) 10/26/20 17:25 Heparin Anti-Xa, Unfract Negative (Negative) 11/03/20 11:01 ABG pH 7.410 pH Units (7.350-7.450) 11/19/20 Unknown POC ABG pCO2 42.2 mmHg (32.0-48.0) 11/18/20 04:06 ABG pCO2 43.4 mm Hg 11/19/20 Unknown POC ABG pO2 67.7 mmHg (83-108) L 11/18/20 04:06 ABG pO2 72.4 mm Hg (80.0-90.0) L 11/19/20 Unknown POC ABG HCO3 28 11/18/20 04:06 ABG HCO3 26.9 mmol/L (20.0-26.0) H 11/19/20 Unknown ABG O2 Saturation 96.4 % (95.0-99.0) 11/19/20 Unknown ABG O2 Content 11.3 (0.0-44) 11/19/20 Unknown POC ABG Base Excess 3.5 11/18/20 04:06 ABG Base Excess 2.0 mmol/L (-2.0-3.0) 11/19/20 Unknown ABG Hemoglobin 8.5 gm/dl (14.0-18.0) L 11/19/20 Unknown ABG Oxyhemoglobin 77.1 (94-98) L 11/13/20 Unknown ABG Carboxyhemoglobin 2.0 % (0.0-5.0) 11/19/20 Unknown ABG Methemoglobin 0.4 % (0.0-1.5) 11/19/20 Unknown ABG Sodium 137.8 mmol/L (136.0-145.0) 11/18/20 04:06 ABG Potassium 4.2 mmol/L (3.40-4.50) 11/18/20 04:06 ABG Chloride 112.0 mmol/L (98-107) H 11/18/20 04:06 ABG Glucose 143 mg/dL (65-95) H 11/18/20 04:06 Oxyhemoglobin 94.1 % (95.0-99.0) L 11/19/20 Unknown Carboxyhemoglobin 0.8 (0.5-1.5) 11/13/20 Unknown FiO2 30 % 11/19/20 Unknown FiO2 % 35 11/18/20 04:06 Sodium 140 mmol/L (137-145) 11/19/20 06:36 Potassium 4.4 mmol/L (3.6-5.0) 11/19/20 06:36 Chloride 106.2 mmol/L (98-107) 11/19/20 06:36 Carbon Dioxide 28 mmol/L (22-30) 11/19/20 06:36 Anion Gap 10 mmol/L 11/19/20 06:36 BUN 21 mg/dL (9-20) H 11/19/20 06:36 Creatinine 0.4 mg/dL (0.8-1.3) L 11/19/20 06:36 Estimated GFR > 60 ml/min 11/19/20 06:36 BUN/Creatinine Ratio 53 % 11/19/20 06:36 Glucose 119 mg/dL (75-100) H 11/19/20 06:36 POC Glucose 94 mg/dL (70-105) 11/19/20 11:58 Hemoglobin A1c 5.5 % (4-6) 10/27/20 04:42 Lactic Acid 4.30 mmol/L (0.7-2.0) H* 10/31/20 Unknown Calcium 7.8 mg/dL (8.4-10.2) L 11/19/20 06:36 Phosphorus 4.50 mg/dL (2.5-4.5) D 11/06/20 13:03 Magnesium 1.70 mg/dL (1.7-2.3) 11/19/20 06:36 Total Bilirubin < 0.20 mg/dL (0.1-1.2) 11/06/20 06:45 AST 23 units/L (5-40) 11/06/20 06:45 ALT 20 units/L (7-56) 11/06/20 06:45 Alkaline Phosphatase 117 units/L (35-129) 11/06/20 06:45 Total Creatine Kinase 31 units/L (55-170) L 10/26/20 17:28 Troponin T 0.123 ng/mL (0.00-0.029) H* 11/13/20 23:15 Total Protein 5.0 g/dL (6.3-8.2) L 11/06/20 06:45 Albumin 1.4 g/dL (3.9-5) L 11/06/20 06:45 Albumin/Globulin Ratio 0.4 % 11/06/20 06:45 Triglycerides 190 mg/dL (2-149) H 10/26/20 17:25 Cholesterol 92 mg/dL (50-199) 10/26/20 17:25 LDL Cholesterol Direct 33 mg/dL (50-130) L 10/26/20 17:25 HDL Cholesterol 18 mg/dL (40-59) L 10/26/20 17:25 Cholesterol/HDL Ratio 5.11 % 10/26/20 17:25 Serotonin Release Assay See scanned results 11/03/20 11:01 TSH 1.490 mlU/mL (0.270-4.200) 10/26/20 17:28 Arterial Blood Glucose 143 mg/dL (65-95) H 11/18/20 04:06 Arterial Blood Ionized Calcium 4.5 mg/dL (4.6-5.3) L 11/18/20 04:06 Urine Color Yellow (Yellow) 03/29/21 Unknown Urine Turbidity Turbid (Clear) 10/27/20 Unknown Urine pH 8.0 (5.0-7.0) H 10/27/20 Unknown Ur Specific [place] 1.020 (1.003-1.030) 10/27/20 Unknown Urine Protein >500 mg/dL (Negative) 10/27/20 Unknown Urine Glucose (UA) Neg mg/dL (Negative) 10/27/20 Unknown Urine Ketones Neg mg/dL (Negative) 10/27/20 Unknown Urine Blood Sm (Negative) 10/27/20 Unknown Urine Nitrite Neg (Negative) 10/27/20 Unknown Urine Bilirubin Neg (Negative) 10/27/20 Unknown Urine Urobilinogen < 2.0 mg/dL (<2.0) 10/27/20 Unknown Ur Leukocyte Esterase Mod (Negative) 10/27/20 Unknown Urine WBC (Auto) > 182.0 /HPF (0.0-6.0) H 10/27/20 Unknown Urine RBC (Auto) 35.0 /HPF (0.0-6.0) 10/27/20 Unknown Urine WBC Clumps 3+ /HPF 10/27/20 Unknown Urine Mucus 3+ /HPF 10/27/20 Unknown Urine Yeast (Budding) 3+ /HPF 10/27/20 Unknown Vancomycin Trough 18.0 ug/mL (5.0-20.0) 11/19/20 09:06 Salicylates < 0.3 mg/dL (2.8-20.0) L 10/26/20 17:28 Acetaminophen 5.0 ug/mL (10.0-30.0) L 10/26/20 17:28 Heparin-induced Plt Ab Negative (Negative) 11/03/20 11:01 UF Heparin High Dose 0 % Release 11/03/20 11:01 MOISES UFH Low Dose 0.1 2 % Release 11/03/20 11:01 MOISES UFH Low Dose 0.5 0 % Release 11/03/20 11:01 Coronavirus (PCR) Negative (Negative) 10/27/20 Unknown Blood Type O POSITIVE 11/17/20 11:10 Antibody Screen Negative 11/17/20 11:10 Crossmatch See Detail 11/17/20 11:10 Microbiology: Microbiology 11/15/20 Unknown Tracheal Aspirate Sputum Culture - Final Methicillin Resist S. Aureus Rivas/IV: Voiding Method Indwelling Catheter Active Medications - Current Medications Current Medications: Generic Name Dose Route Start Last Admin Trade Name Freq PRN Reason Stop Dose Admin Acetaminophen 650 mg 10/26/20 22:22 11/13/20 14:36 Acetaminophen 325 Mg Tab PO 650 mg Q4H PRN Administration Pain MILD(1-3)/Fever >100.5/TIERNEY Albuterol 2.5 mg 11/11/20 14:00 11/19/20 14:16 Albuterol 2.5 Mg/3 Ml Nebu IH 2.5 mg TIDRT MARSHALL Administration Lipase/Protease/Amylase 1 each 10/28/20 13:18 Lipase 10,500/Protease 25,000/Amylase 43,750 (Units) Dr Cap FEEDTUBE PRN PRN For Clogged Feeding Tube Famotidine 20 mg 11/11/20 10:00 11/19/20 09:12 Famotidine 20 Mg Tab PO 20 mg BID MARSHALL Administration Fentanyl 50 mcg 11/15/20 22:30 11/19/20 09:51 Fentanyl 100 Mcg/2 Ml Inj IV 50 mcg Q10MIN PRN Administration ANALGESIA Hydrophilic Ointment 1 applic 11/15/20 22:30 Lip Therapy Vaseline TP Q2HR PRN Dry Lips Fentanyl Citrate 2,000 mcg in 100 mls @ 6.55 mls/hr 11/15/20 23:00 11/19/20 11:14 Fentanyl Drip Premix IV 1 mcg/kg/hr TITR MARSHALL 6.55 mls/hr Administration Protocol 1 MCG/KG/HR Norepinephrine 4 mg in 250 mls @ 7.5 mls/hr 11/15/20 23:45 11/17/20 01:37 Levophed Drip 4 Mg/Ns 250 Ml IV 0 mcg/min TITR MARSHALL 0 mls/hr Titration Protocol 2 MCG/MIN Vancomycin HCl 2,000 mg/ 540 mls @ 333 mls/hr 11/16/20 12:00 11/19/20 15:00 Sodium Chloride IV 11/23/20 13:38 Infused Q24H MARSHALL Infusion Protocol Amiodarone HCl 900 mg/ 500 mls @ 33.333 mls/hr 11/19/20 13:00 11/19/20 12:56 Dextrose IV 1 mg/min DIRECT MARSHALL 33.333 mls/hr Administration Protocol 1 MG/MIN Midodrine 10 mg 11/06/20 12:00 11/19/20 16:45 Midodrine 5 Mg Tab PO 10 mg TID@0800,1200,1600 MARSHALL Administration Multi-Ingred Cream/Lotion/Oil/Oint 1 applic 11/15/20 22:30 Mineral Oil/Petrolatum, White Ophth Oint 3.5 Gm OU Q4HR PRN Dry Eye(s) Ondansetron HCl 4 mg 10/26/20 22:22 Ondansetron 4 Mg/2 Ml Inj IV Q8H PRN Nausea And Vomiting Simple Syrup 15 ml 10/28/20 13:18 11/10/20 16:01 Simple Syrup 15 Ml FEEDTUBE 15 ml PRN PRN Administration Hypoglycemia Simple Syrup 30 ml 10/28/20 13:18 Simple Syrup 15 Ml FEEDTUBE PRN PRN Hypoglycemia Sodium Bicarbonate 325 mg 10/28/20 13:18 Sodium Bicarbonate 325 Mg Tab FEEDTUBE PRN PRN For Clogged Feeding Tube Sodium Chloride 10 ml 10/27/20 10:00 11/19/20 09:12 Sodium Chloride 0.9% 10 Ml Flush Syringe IV 10 ml BID MARSHALL Administration Sodium Chloride 10 ml 10/26/20 22:22 Sodium Chloride 0.9% 10 Ml Flush Syringe IV PRN PRN LINE FLUSH Sodium Hypochlorite 1 applic 10/28/20 10:00 11/19/20 09:11 Sodium Hypochlorite, Dakin's 1/2 Strength (0.25%) 473 Ml Topical Soln TP 1 applicatio BID MARSHALL Administration Vancomycin HCl 125 mg 11/16/20 12:00 11/19/20 12:52 Vancomycin 250 Mg/10 Ml Oral Liqd PO 125 mg Q6HR MARSHALL Administration Protocol Nutrition/Malnutrition Assess - Dietary Evaluation Nutrition/Malnutrition Findings: Nutrition Notes Start: 10/27/20 09:15 Freq: Status: Active Protocol: Document 11/17/20 14:12 (Rec: 11/17/20 14:18 [id number]) Nutrition Notes Initial or Follow up Reassessment Current Diagnosis Acute Kidney Injury,Decubitus( Pressure Ulcer),Sepsis, Hypertension,Respiratory Failure,Hyperlipidemia Other Pertinent Diagnosis AMS, MRSA, Encephalopathy, Metabiloc Acidosis, pneu ,FTT Current Diet Promote at 80 ml/hr Labs/Tests Na 144 BUN 23 Cr 0.4 Pertinent Medications D5w at 65 ml/hr Vancomycin Height 6 ft 2 in Weight 131.6 kg [place] Body Weight (kg) 86.36 BMI 37.2 Weight change and time frame wt fluctuations Weight Status Obese Subjective/Other Information FU for TF tolerance. Observed Promote running at goal rate and pt tolerating. Percent of energy/protein needs met: 100%/90% Burn Absent Trauma Absent GI Symptoms Diarrhea Difficulty In Swallowing,Chewing Skin Integrity/Comment Multiple pressure ulcer,1 infected Current % PO Negligible Minimum of two criteria No Fluid Accumulation Moderate to Severe (severe) #2 Nutrition Diagnosis Increased nutrient needs ( specify in comment below) Diagnosis Progress(for reassessment Continues documentation) #1 Nutrition Diagnosis Inadequate oral intake Diagnosis Progress(for reassessment Continues documentation) Is patient on ventilator? Yes Is Patient Ambulatory and/or Out of Bed No REE-([place] or-confined to bed) 2544.612 Kcal/Kg value to use for calculation 14 Approximate Energy Requirements Using 1842 kcal/Kg Calculation Used for Recommendations Kcal/kg Additional Notes protein needs: 133 - 167g(1.2 - 1.5 g/kgAdBW 111) Fluid needs 1 ml/kcal Nutrition Intervention Change Diet Order: Continue Nutrition Support: Promote at 80 ml/hr with a flush of 50 ml q4h Kcal 1,920 Protein (gm) 120 Fluid (mL) 1,611 Goal #1 TF tolerance Goal #2 Meet at least 75% EER and protein needs via TF Goal #3 wound healing Anticipated Discharge Needs: unable to determine at this time Follow-Up By: 11/20/20 Additional Comments FU for stable TF <KAMRAN GUPTA R - Last Filed: 11/19/20 22:31> Assessment and Plan Assessment and plan: I saw and evaluated the patient. I agree with the findings and the plan of care as documented in the Nurse Practitioner's~note, with the following corrections and additions. Updated patient's POA at bedside in details. Hospitalist Physical - Constitutional Vitals: Temp Pulse Resp BP Pulse Ox 98.7 F 98 H 20 130/77 96 11/19/20 20:00 11/19/20 20:00 11/19/20 20:00 11/19/20 20:00 11/19/20 20:00 HEART Score - HEART Score Troponin: Troponin T 0.123 ng/mL (0.00-0.029) H* 11/13/20 23:15 Results - Labs CBC & Chem 7: 11/19/20 06:36 11/19/20 06:36 Labs: Laboratory Last Values WBC 10.8 K/mm3 (4.5-11.0) 11/19/20 06:36 RBC 2.79 M/mm3 (3.65-5.03) L 11/19/20 06:36 Hgb 9.0 gm/dl (11.8-15.2) L 11/19/20 06:36 Hct 27.8 % (35.5-45.6) L 11/19/20 06:36 MCV 100 fl (84-94) H 11/19/20 06:36 MCH 32 pg (28-32) 11/19/20 06:36 MCHC 32 % (32-34) 11/19/20 06:36 RDW 20.7 % (13.2-15.2) H 11/19/20 06:36 Plt Count 275 K/mm3 (140-440) 11/19/20 06:36 Lymph % (Auto) 9.1 % (13.4-35.0) L 11/09/20 06:00 [place] % (Auto) 5.4 % (0.0-7.3) 11/09/20 06:00 Eos % (Auto) 0.3 % (0.0-4.3) 11/09/20 06:00 Baso % (Auto) 0.4 % (0.0-1.8) 11/09/20 06:00 Lymph # (Auto) 1.2 K/mm3 (1.2-5.4) 11/09/20 06:00 [place] # (Auto) 0.7 K/mm3 (0.0-0.8) 11/09/20 06:00 Eos # (Auto) 0.0 K/mm3 (0.0-0.4) 11/09/20 06:00 Baso # (Auto) 0.0 K/mm3 (0.0-0.1) 11/09/20 06:00 Add Manual Diff Complete 11/10/20 13:46 Total Counted 100 11/10/20 13:46 Seg Neutrophils % 84.8 % (40.0-70.0) H 11/09/20 06:00 Seg Neuts % (Manual) 90.0 % (40.0-70.0) H 11/10/20 13:46 Band Neutrophils % 17.0 % 10/27/20 03:30 Lymphocytes % (Manual) 3.0 % (13.4-35.0) L 11/10/20 13:46 Monocytes % (Manual) 7.0 % (0.0-7.3) 11/10/20 13:46 Eosinophils % (Manual) 2.0 % (0.0-4.3) 10/27/20 03:30 Metamyelocytes % 4.0 % 10/27/20 03:30 Nucleated RBC % Not Reportable 11/10/20 13:46 Seg Neutrophils # 11.1 K/mm3 (1.8-7.7) H 11/09/20 06:00 Seg Neutrophils # Man 14.5 K/mm3 (1.8-7.7) H 11/10/20 13:46 Band Neutrophils # 0.0 K/mm3 11/10/20 13:46 Lymphocytes # (Manual) 0.5 K/mm3 (1.2-5.4) L 11/10/20 13:46 Abs React Lymphs (Man) 0.0 K/mm3 11/10/20 13:46 Monocytes # (Manual) 1.1 K/mm3 (0.0-0.8) H 11/10/20 13:46 Eosinophils # (Manual) 0.0 K/mm3 (0.0-0.4) 11/10/20 13:46 Basophils # (Manual) 0.0 K/mm3 (0.0-0.1) 11/10/20 13:46 Metamyelocytes # 0.0 K/mm3 11/10/20 13:46 Myelocytes # 0.0 K/mm3 11/10/20 13:46 Promyelocytes # 0.0 K/mm3 11/10/20 13:46 Blast Cells # 0.0 K/mm3 11/10/20 13:46 WBC Morphology Not Reportable 11/10/20 13:46 Hypersegmented Neuts Not Reportable 11/10/20 13:46 Hyposegmented Neuts Not Reportable 11/10/20 13:46 Hypogranular Neuts Not Reportable 11/10/20 13:46 Smudge Cells Not Reportable 11/10/20 13:46 Toxic Granulation Not Reportable 11/10/20 13:46 Toxic Vacuolation Not Reportable 11/10/20 13:46 Dohle Bodies Not Reportable 11/10/20 13:46 Pelger-Huet Anomaly Not Reportable 11/10/20 13:46 Kassi Rods Not Reportable 11/10/20 13:46 Platelet Estimate Not Reportable 11/10/20 13:46 Clumped Platelets Not Reportable 11/10/20 13:46 Plt Clumps, EDTA Not Reportable 11/10/20 13:46 Large Platelets Not Reportable 11/10/20 13:46 Giant Platelets Not Reportable 11/10/20 13:46 Platelet Satelliting Not Reportable 11/10/20 13:46 Plt Morphology Comment Not Reportable 11/10/20 13:46 RBC Morphology Not Reportable 11/10/20 13:46 Dimorphic RBCs Yes 11/10/20 13:46 Polychromasia Not Reportable 11/10/20 13:46 Hypochromasia Not Reportable 11/10/20 13:46 Poikilocytosis Not Reportable 11/10/20 13:46 Anisocytosis Not Reportable 11/10/20 13:46 Microcytosis Rare 11/10/20 13:46 Macrocytosis Rare 11/10/20 13:46 Spherocytes Not Reportable 11/10/20 13:46 Pappenheimer Bodies Not Reportable 11/10/20 13:46 Sickle Cells Not Reportable 11/10/20 13:46 Target Cells Not Reportable 11/10/20 13:46 Tear Drop Cells Not Reportable 11/10/20 13:46 Ovalocytes Not Reportable 11/10/20 13:46 Helmet Cells Not Reportable 11/10/20 13:46 [place] Bodies Not Reportable 11/10/20 13:46 [place] Rings Not Reportable 11/10/20 13:46 [place] Cells Not Reportable 11/10/20 13:46 Bite Cells Not Reportable 11/10/20 13:46 Crenated Cell Not Reportable 11/10/20 13:46 Elliptocytes Not Reportable 11/10/20 13:46 Acanthocytes (Spur) Not Reportable 11/10/20 13:46 Rouleaux Not Reportable 11/10/20 13:46 Hemoglobin C Crystals Not Reportable 11/10/20 13:46 Schistocytes Not Reportable 11/10/20 13:46 Malaria parasites Not Reportable 11/10/20 13:46 Richard Bodies Not Reportable 11/10/20 13:46 Hem Pathologist Commnt No 11/10/20 13:46 PT 14.7 Sec. (12.2-14.9) 11/19/20 06:36 INR 1.15 (0.87-1.13) H 11/19/20 06:36 APTT 27.9 Sec. (24.2-36.6) 10/26/20 17:25 Heparin Anti-Xa, Unfract Negative (Negative) 11/03/20 11:01 ABG pH 7.410 pH Units (7.350-7.450) 11/19/20 Unknown POC ABG pCO2 42.2 mmHg (32.0-48.0) 11/18/20 04:06 ABG pCO2 43.4 mm Hg 11/19/20 Unknown POC ABG pO2 67.7 mmHg (83-108) L 11/18/20 04:06 ABG pO2 72.4 mm Hg (80.0-90.0) L 11/19/20 Unknown POC ABG HCO3 28 11/18/20 04:06 ABG HCO3 26.9 mmol/L (20.0-26.0) H 11/19/20 Unknown ABG O2 Saturation 96.4 % (95.0-99.0) 11/19/20 Unknown ABG O2 Content 11.3 (0.0-44) 11/19/20 Unknown POC ABG Base Excess 3.5 11/18/20 04:06 ABG Base Excess 2.0 mmol/L (-2.0-3.0) 11/19/20 Unknown ABG Hemoglobin 8.5 gm/dl (14.0-18.0) L 11/19/20 Unknown ABG Oxyhemoglobin 77.1 (94-98) L 11/13/20 Unknown ABG Carboxyhemoglobin 2.0 % (0.0-5.0) 11/19/20 Unknown ABG Methemoglobin 0.4 % (0.0-1.5) 11/19/20 Unknown ABG Sodium 137.8 mmol/L (136.0-145.0) 11/18/20 04:06 ABG Potassium 4.2 mmol/L (3.40-4.50) 11/18/20 04:06 ABG Chloride 112.0 mmol/L (98-107) H 11/18/20 04:06 ABG Glucose 143 mg/dL (65-95) H 11/18/20 04:06 Oxyhemoglobin 94.1 % (95.0-99.0) L 11/19/20 Unknown Carboxyhemoglobin 0.8 (0.5-1.5) 11/13/20 Unknown FiO2 30 % 11/19/20 Unknown FiO2 % 35 11/18/20 04:06 Sodium 140 mmol/L (137-145) 11/19/20 06:36 Potassium 4.4 mmol/L (3.6-5.0) 11/19/20 06:36 Chloride 106.2 mmol/L (98-107) 11/19/20 06:36 Carbon Dioxide 28 mmol/L (22-30) 11/19/20 06:36 Anion Gap 10 mmol/L 11/19/20 06:36 BUN 21 mg/dL (9-20) H 11/19/20 06:36 Creatinine 0.4 mg/dL (0.8-1.3) L 11/19/20 06:36 Estimated GFR > 60 ml/min 11/19/20 06:36 BUN/Creatinine Ratio 53 % 11/19/20 06:36 Glucose 119 mg/dL (75-100) H 11/19/20 06:36 POC Glucose 94 mg/dL (70-105) 11/19/20 11:58 Hemoglobin A1c 5.5 % (4-6) 10/27/20 04:42 Lactic Acid 4.30 mmol/L (0.7-2.0) H* 10/31/20 Unknown Calcium 7.8 mg/dL (8.4-10.2) L 11/19/20 06:36 Phosphorus 4.50 mg/dL (2.5-4.5) D 11/06/20 13:03 Magnesium 1.70 mg/dL (1.7-2.3) 11/19/20 06:36 Total Bilirubin < 0.20 mg/dL (0.1-1.2) 11/06/20 06:45 AST 23 units/L (5-40) 11/06/20 06:45 ALT 20 units/L (7-56) 11/06/20 06:45 Alkaline Phosphatase 117 units/L (35-129) 11/06/20 06:45 Total Creatine Kinase 31 units/L (55-170) L 10/26/20 17:28 Troponin T 0.123 ng/mL (0.00-0.029) H* 11/13/20 23:15 Total Protein 5.0 g/dL (6.3-8.2) L 11/06/20 06:45 Albumin 1.4 g/dL (3.9-5) L 11/06/20 06:45 Albumin/Globulin Ratio 0.4 % 11/06/20 06:45 Triglycerides 190 mg/dL (2-149) H 10/26/20 17:25 Cholesterol 92 mg/dL (50-199) 10/26/20 17:25 LDL Cholesterol Direct 33 mg/dL (50-130) L 10/26/20 17:25 HDL Cholesterol 18 mg/dL (40-59) L 10/26/20 17:25 Cholesterol/HDL Ratio 5.11 % 10/26/20 17:25 Serotonin Release Assay See scanned results 11/03/20 11:01 TSH 1.490 mlU/mL (0.270-4.200) 10/26/20 17:28 Arterial Blood Glucose 143 mg/dL (65-95) H 11/18/20 04:06 Arterial Blood Ionized Calcium 4.5 mg/dL (4.6-5.3) L 11/18/20 04:06 Urine Color Yellow (Yellow) 10/27/20 Unknown Urine Turbidity Turbid (Clear) 10/27/20 Unknown Urine pH 8.0 (5.0-7.0) H 10/27/20 Unknown Ur Specific [place] 1.020 (1.003-1.030) 10/27/20 Unknown Urine Protein >500 mg/dL (Negative) 10/27/20 Unknown Urine Glucose (UA) Neg mg/dL (Negative) 10/27/20 Unknown Urine Ketones Neg mg/dL (Negative) 10/27/20 Unknown Urine Blood Sm (Negative) 10/27/20 Unknown Urine Nitrite Neg (Negative) 10/27/20 Unknown Urine Bilirubin Neg (Negative) 10/27/20 Unknown Urine Urobilinogen < 2.0 mg/dL (<2.0) 10/27/20 Unknown Ur Leukocyte Esterase Mod (Negative) 10/27/20 Unknown Urine WBC (Auto) > 182.0 /HPF (0.0-6.0) H 10/27/20 Unknown Urine RBC (Auto) 35.0 /HPF (0.0-6.0) 10/27/20 Unknown Urine WBC Clumps 3+ /HPF 10/27/20 Unknown Urine Mucus 3+ /HPF 10/27/20 Unknown Urine Yeast (Budding) 3+ /HPF 10/27/20 Unknown Vancomycin Trough 18.0 ug/mL (5.0-20.0) 11/19/20 09:06 Salicylates < 0.3 mg/dL (2.8-20.0) L 10/26/20 17:28 Acetaminophen 5.0 ug/mL (10.0-30.0) L 10/26/20 17:28 Heparin-induced Plt Ab Negative (Negative) 11/03/20 11:01 UF Heparin High Dose 0 % Release 11/03/20 11:01 MOISES UFH Low Dose 0.1 2 % Release 11/03/20 11:01 MOISES UFH Low Dose 0.5 0 % Release 11/03/20 11:01 Coronavirus (PCR) Negative (Negative) 10/27/20 Unknown Blood Type O POSITIVE 11/17/20 11:10 Antibody Screen Negative 11/17/20 11:10 Crossmatch See Detail 11/17/20 11:10 Microbiology: Microbiology 11/15/20 Unknown Tracheal Aspirate Sputum Culture - Final Methicillin Resist S. Aureus Rivas/IV: Voiding Method Indwelling Catheter Active Medications - Current Medications Current Medications: Generic Name Dose Route Start Last Admin Trade Name Freq PRN Reason Stop Dose Admin Acetaminophen 650 mg 10/26/20 22:22 11/13/20 14:36 Acetaminophen 325 Mg Tab PO 650 mg Q4H PRN Administration Pain MILD(1-3)/Fever >100.5/TIENREY Albuterol 2.5 mg 11/11/20 14:00 11/19/20 21:11 Albuterol 2.5 Mg/3 Ml Nebu IH 2.5 mg TIDRT MARSHALL Administration Lipase/Protease/Amylase 1 each 10/28/20 13:18 Lipase 10,500/Protease 25,000/Amylase 43,750 (Units) Dr Cap FEEDTUBE PRN PRN For Clogged Feeding Tube Famotidine 20 mg 11/11/20 10:00 11/19/20 09:12 Famotidine 20 Mg Tab PO 20 mg BID MARSHALL Administration Fentanyl 50 mcg 11/15/20 22:30 11/19/20 09:51 Fentanyl 100 Mcg/2 Ml Inj IV 50 mcg Q10MIN PRN Administration ANALGESIA Hydrophilic Ointment 1 applic 11/15/20 22:30 Lip Therapy Vaseline TP Q2HR PRN Dry Lips Fentanyl Citrate 2,000 mcg in 100 mls @ 6.55 mls/hr 11/15/20 23:00 11/19/20 11:14 Fentanyl Drip Premix IV 1 mcg/kg/hr TITR MARSHALL 6.55 mls/hr Administration Protocol 1 MCG/KG/HR Norepinephrine 4 mg in 250 mls @ 7.5 mls/hr 11/15/20 23:45 11/17/20 01:37 Levophed Drip 4 Mg/Ns 250 Ml IV 0 mcg/min TITR MARSHALL 0 mls/hr Titration Protocol 2 MCG/MIN Vancomycin HCl 2,000 mg/ 540 mls @ 333 mls/hr 11/16/20 12:00 11/19/20 15:00 Sodium Chloride IV 11/23/20 13:38 Infused Q24H [facility] Infusion Protocol Amiodarone HCl 900 mg/ 500 mls @ 33.333 mls/hr 11/19/20 13:00 11/19/20 19:07 Dextrose IV 0.5 mg/min DIRECT MARSHALL 16.667 mls/hr Infusion Protocol 1 MG/MIN Midodrine 10 mg 11/06/20 12:00 11/19/20 16:45 Midodrine 5 Mg Tab PO 10 mg TID@0800,1200,1600 MASRHALL Administration Multi-Ingred Cream/Lotion/Oil/Oint 1 applic 11/15/20 22:30 Mineral Oil/Petrolatum, White Ophth Oint 3.5 Gm OU Q4HR PRN Dry Eye(s) Ondansetron HCl 4 mg 10/26/20 22:22 Ondansetron 4 Mg/2 Ml Inj IV Q8H PRN Nausea And Vomiting Simple Syrup 15 ml 10/28/20 13:18 11/10/20 16:01 Simple Syrup 15 Ml FEEDTUBE 15 ml PRN PRN Administration Hypoglycemia Simple Syrup 30 ml 10/28/20 13:18 Simple Syrup 15 Ml FEEDTUBE PRN PRN Hypoglycemia Sodium Bicarbonate 325 mg 10/28/20 13:18 Sodium Bicarbonate 325 Mg Tab FEEDTUBE PRN PRN For Clogged Feeding Tube Sodium Chloride 10 ml 10/27/20 10:00 11/19/20 09:12 Sodium Chloride 0.9% 10 Ml Flush Syringe IV 10 ml BID MARSHALL Administration Sodium Chloride 10 ml 10/26/20 22:22 Sodium Chloride 0.9% 10 Ml Flush Syringe IV PRN PRN LINE FLUSH Sodium Hypochlorite 1 applic 10/28/20 10:00 11/19/20 09:11 Sodium Hypochlorite, Dakin's 1/2 Strength (0.25%) 473 Ml Topical Soln TP 1 applicatio BID MARSHALL Administration Vancomycin HCl 125 mg 11/16/20 12:00 11/19/20 18:02 Vancomycin 250 Mg/10 Ml Oral Liqd PO 125 mg Q6HR MARSHALL Administration Protocol Nutrition/Malnutrition Assess - Dietary Evaluation Nutrition/Malnutrition Findings: Nutrition Notes Start: 10/27/20 09:15 Freq: Status: Active Protocol: Document 11/17/20 14:12 (Rec: 11/17/20 14:18 [email or web address]) Nutrition Notes Initial or Follow up Reassessment Current Diagnosis Acute Kidney Injury,Decubitus( Pressure Ulcer),Sepsis, Hypertension,Respiratory Failure,Hyperlipidemia Other Pertinent Diagnosis AMS, MRSA, Encephalopathy, Metabiloc Acidosis, pneu ,FTT Current Diet Promote at 80 ml/hr Labs/Tests Na 144 BUN 23 Cr 0.4 Pertinent Medications D5w at 65 ml/hr Vancomycin Height 6 ft 2 in Weight 131.6 kg [place] Body Weight (kg) 86.36 BMI 37.2 Weight change and time frame wt fluctuations Weight Status Obese Subjective/Other Information FU for TF tolerance. Observed Promote running at goal rate and pt tolerating. Percent of energy/protein needs met: 100%/90% Burn Absent Trauma Absent GI Symptoms Diarrhea Difficulty In Swallowing,Chewing Skin Integrity/Comment Multiple pressure ulcer,1 infected Current % PO Negligible Minimum of two criteria No Fluid Accumulation Moderate to Severe (severe) #2 Nutrition Diagnosis Increased nutrient needs ( specify in comment below) Diagnosis Progress(for reassessment Continues documentation) #1 Nutrition Diagnosis Inadequate oral intake Diagnosis Progress(for reassessment Continues documentation) Is patient on ventilator? Yes Is Patient Ambulatory and/or Out of Bed No [facility] 2544.612 Kcal/Kg value to use for calculation 14 Approximate Energy Requirements Using 1842 kcal/Kg Calculation Used for Recommendations Kcal/kg Additional Notes protein needs: 133 - 167g(1.2 - 1.5 g/kgAdBW 111) Fluid needs 1 ml/kcal Nutrition Intervention Change Diet Order: Continue Nutrition Support: Promote at 80 ml/hr with a flush of 50 ml q4h Kcal 1,920 Protein (gm) 120 Fluid (mL) 1,611 Goal #1 TF tolerance Goal #2 Meet at least 75% EER and protein needs via TF Goal #3 wound healing Anticipated Discharge Needs: unable to determine at this time Follow-Up By: 11/20/20 Additional Comments FU for stable TF
--- NOTE | 2020-11-20 05:56 | XRay Report ---
CHEST - 1 VIEW INDICATION: follow up respiratory failure COMPARISON: Yesterday FINDINGS: SUPPORT DEVICES: Stable support device positioning. HEART: Stable cardiomediastinal silhouette. LUNGS/PLEURA: Persistent moderate patchy multifocal airspace disease. ADDITIONAL FINDINGS: None. IMPRESSION: Unchanged exam. Signer Name: Prashanth Colindres MD Signed: 11/20/2020 5:51 AM Workstation Name: [id number]
[2020-11-20 06:03] LABS: Hematocrit 26.3 % (35.5-45.6); Hemoglobin 8.9 gm/dl (11.8-15.2); Mean Corpuscular HGB Conc 34 % (32-34); Mean Corpuscular Volume 96 fl (84-94); Platelet Count 342 K/mm3 (140-440); Red Blood Count 2.74 M/mm3 (3.65-5.03); Red Cell Distribution Width 18.6 % (13.2-15.2)
[2020-11-20 06:17] LABS: Blood Urea Nitrogen 20 mg/dL (9-20); Hemolysis Index 4
[2020-11-20 06:20] LABS: BUN/Creatinine Ratio 50
[2020-11-20] MEDS: SODIUM HYPOCHLORITE, DAKIN'S 1/2 STRENGTH (0.25%) 473 ML TOPICAL SOLN TP SCH ×2 (07:12→09:51)
[2020-11-20] MEDS: FAMOTIDINE 20 MG TAB PO SCH ×3 (07:24→22:37)
[2020-11-20] MEDS: VANCOMYCIN 250 MG/10 ML ORAL LIQD PO SCH ×3 (07:25→18:04)
[2020-11-20] MEDS: ALBUTEROL 2.5 MG/3 ML NEBU IH SCH ×3 (08:20→20:46)
[2020-11-20] MEDS: MIDODRINE 5 MG TAB PO SCH ×3 (09:50→18:03)
--- NOTE | 2020-11-20 10:08 | Progress Note ---
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 175 H Lactic Acid Calcium Phosphorus Magnesium Total Creatine Kinase Troponin T Total Protein Albumin Triglycerides LDL Cholesterol Direct HDL Cholesterol Arterial Blood Glucose 212 H Arterial Blood Ionized Calcium 3.9 L Urine pH Urine WBC (Auto) Vancomycin Trough Salicylates Acetaminophen Crossmatch 10/30/20 10/30/20 10/30/20 04:54 04:54 05:14 WBC 20.7 H RBC 2.28 L Hgb 7.0 L Hct 21.9 L MCV 96 H MCH MCHC RDW 17.0 H Plt Count 90 L Lymph % (Auto) Seg Neutrophils % Seg Neuts % (Manual) Lymphocytes % (Manual) Nucleated RBC % Seg Neutrophils # Seg Neutrophils # Man Lymphocytes # (Manual) Monocytes # (Manual) PT INR ABG pH POC ABG pCO2 POC ABG pO2 ABG pO2 ABG HCO3 ABG O2 Saturation ABG Base Excess ABG Hemoglobin ABG Oxyhemoglobin ABG Sodium ABG Potassium ABG Chloride ABG Glucose Oxyhemoglobin Carboxyhemoglobin Sodium Potassium 3.0 L D Chloride Carbon Dioxide BUN 28 H Creatinine 0.6 L Glucose 214 H POC Glucose 187 H Lactic Acid Calcium 6.2 L Phosphorus Magnesium Total Creatine Kinase Troponin T Total Protein Albumin Triglycerides LDL Cholesterol Direct HDL Cholesterol Arterial Blood Glucose Arterial Blood Ionized Calcium Urine pH Urine WBC (Auto) Vancomycin Trough Salicylates Acetaminophen Crossmatch 10/30/20 10/30/20 10/30/20 09:30 11:40 17:51 WBC RBC Hgb Hct MCV MCH MCHC RDW Plt Count Lymph % (Auto) Seg Neutrophils % Seg Neuts % (Manual) Lymphocytes % (Manual) Nucleated RBC % Seg Neutrophils # Seg Neutrophils # Man Lymphocytes # (Manual) Monocytes # (Manual) PT INR ABG pH POC ABG pCO2 POC ABG pO2 ABG pO2 ABG HCO3 ABG O2 Saturation ABG Base Excess ABG Hemoglobin ABG Oxyhemoglobin ABG Sodium ABG Potassium ABG Chloride ABG Glucose Oxyhemoglobin Carboxyhemoglobin Sodium Potassium Chloride Carbon Dioxide BUN Creatinine Glucose POC Glucose 183 H 136 H Lactic Acid Calcium Phosphorus Magnesium Total Creatine Kinase Troponin T Total Protein Albumin Triglycerides LDL Cholesterol Direct HDL Cholesterol Arterial Blood Glucose Arterial Blood Ionized Calcium Urine pH Urine WBC (Auto) Vancomycin Trough Salicylates Acetaminophen Crossmatch See Detail 10/30/20 10/30/20 10/30/20 18:53 23:25 Unknown WBC RBC Hgb Hct MCV MCH MCHC RDW Plt Count Lymph % (Auto) Seg Neutrophils % Seg Neuts % (Manual) Lymphocytes % (Manual) Nucleated RBC % Seg Neutrophils # Seg Neutrophils # Man Lymphocytes # (Manual) Monocytes # (Manual) PT INR ABG pH POC ABG pCO2 POC ABG pO2 ABG pO2 ABG HCO3 ABG O2 Saturation ABG Base Excess ABG Hemoglobin ABG Oxyhemoglobin ABG Sodium ABG Potassium ABG Chloride ABG Glucose Oxyhemoglobin Carboxyhemoglobin Sodium Potassium Chloride Carbon Dioxide BUN Creatinine Glucose POC Glucose 130 H Lactic Acid Calcium Phosphorus Magnesium Total Creatine Kinase Troponin T Total Protein Albumin Triglycerides LDL Cholesterol Direct HDL Cholesterol Arterial Blood Glucose Arterial Blood Ionized Calcium Urine pH Urine WBC (Auto) Vancomycin Trough 21.4 H 22.0 H Salicylates Acetaminophen Crossmatch 10/30/20 10/31/20 10/31/20 Unknown 02:54 03:42 WBC 21.1 H 23.0 H RBC 2.36 L Hgb 7.3 L 11.4 L D Hct 22.7 L 34.1 L D MCV 96 H MCH MCHC RDW 17.1 H 16.2 H Plt Count 73 L 33 L Lymph % (Auto) Seg Neutrophils % Seg Neuts % (Manual) Lymphocytes % (Manual) Nucleated RBC % Seg Neutrophils # Seg Neutrophils # Man Lymphocytes # (Manual) Monocytes # (Manual) PT INR ABG pH 7.517 H POC ABG pCO2 25.7 L POC ABG pO2 52.3 L ABG pO2 ABG HCO3 ABG O2 Saturation ABG Base Excess ABG Hemoglobin ABG Oxyhemoglobin 90.8 L ABG Sodium ABG Potassium ABG Chloride 109.0 H ABG Glucose 147 H Oxyhemoglobin Carboxyhemoglobin Sodium Potassium Chloride Carbon Dioxide BUN Creatinine Glucose POC Glucose Lactic Acid Calcium Phosphorus Magnesium Total Creatine Kinase Troponin T Total Protein Albumin Triglycerides LDL Cholesterol Direct HDL Cholesterol Arterial Blood Glucose 147 H Arterial Blood Ionized Calcium 4.0 L Urine pH Urine WBC (Auto) Vancomycin Trough Salicylates Acetaminophen Crossmatch 10/31/20 10/31/20 10/31/20 04:37 04:37 05:08 WBC 21.7 H RBC Hgb Hct MCV MCH MCHC RDW 16.1 H Plt Count 39 L Lymph % (Auto) Seg Neutrophils % Seg Neuts % (Manual) Lymphocytes % (Manual) Nucleated RBC % Seg Neutrophils # Seg Neutrophils # Man Lymphocytes # (Manual) Monocytes # (Manual) PT INR ABG pH POC ABG pCO2 POC ABG pO2 ABG pO2 ABG HCO3 ABG O2 Saturation ABG Base Excess ABG Hemoglobin ABG Oxyhemoglobin ABG Sodium ABG Potassium ABG Chloride ABG Glucose Oxyhemoglobin Carboxyhemoglobin Sodium Potassium Chloride 108.4 H Carbon Dioxide BUN 25 H Creatinine 0.5 L Glucose 140 H POC Glucose 140 H Lactic Acid Calcium 6.1 L Phosphorus Magnesium 1.50 L Total Creatine Kinase Troponin T Total Protein Albumin Triglycerides LDL Cholesterol Direct HDL Cholesterol Arterial Blood Glucose Arterial Blood Ionized Calcium Urine pH Urine WBC (Auto) Vancomycin Trough Salicylates Acetaminophen Crossmatch 10/31/20 10/31/20 10/31/20 11:12 18:50 23:21 WBC RBC Hgb Hct MCV MCH MCHC RDW Plt Count Lymph % (Auto) Seg Neutrophils % Seg Neuts % (Manual) Lymphocytes % (Manual) Nucleated RBC % Seg Neutrophils # Seg Neutrophils # Man Lymphocytes # (Manual) Monocytes # (Manual) PT INR ABG pH POC ABG pCO2 POC ABG pO2 ABG pO2 ABG HCO3 ABG O2 Saturation ABG Base Excess ABG Hemoglobin ABG Oxyhemoglobin ABG Sodium ABG Potassium ABG Chloride ABG Glucose Oxyhemoglobin Carboxyhemoglobin Sodium Potassium Chloride Carbon Dioxide BUN Creatinine Glucose POC Glucose 125 H 142 H 127 H Lactic Acid Calcium Phosphorus Magnesium Total Creatine Kinase Troponin T Total Protein Albumin Triglycerides LDL Cholesterol Direct HDL Cholesterol Arterial Blood Glucose Arterial Blood Ionized Calcium Urine pH Urine WBC (Auto) Vancomycin Trough Salicylates Acetaminophen Crossmatch 10/31/20 11/01/20 11/01/20 Unknown 03:40 04:21 WBC RBC Hgb Hct MCV MCH MCHC RDW Plt Count Lymph % (Auto) Seg Neutrophils % Seg Neuts % (Manual) Lymphocytes % (Manual) Nucleated RBC % Seg Neutrophils # Seg Neutrophils # Man Lymphocytes # (Manual) Monocytes # (Manual) PT INR ABG pH 7.489 H POC ABG pCO2 POC ABG pO2 ABG pO2 77.2 L ABG HCO3 ABG O2 Saturation ABG Base Excess ABG Hemoglobin 7.1 L ABG Oxyhemoglobin ABG Sodium ABG Potassium ABG Chloride ABG Glucose Oxyhemoglobin Carboxyhemoglobin Sodium Potassium 3.1 L Chloride 107.1 H Carbon Dioxide BUN 25 H Creatinine 0.5 L Glucose 148 H POC Glucose Lactic Acid 4.30 H* Calcium 6.0 L Phosphorus Magnesium Total Creatine Kinase Troponin T Total Protein Albumin Triglycerides LDL Cholesterol Direct HDL Cholesterol Arterial Blood Glucose Arterial Blood Ionized Calcium Urine pH Urine WBC (Auto) Vancomycin Trough Salicylates Acetaminophen Crossmatch 11/01/20 11/01/20 11/01/20 05:13 11:42 17:38 WBC RBC Hgb Hct MCV MCH MCHC RDW Plt Count Lymph % (Auto) Seg Neutrophils % Seg Neuts % (Manual) Lymphocytes % (Manual) Nucleated RBC % Seg Neutrophils # Seg Neutrophils # Man Lymphocytes # (Manual) Monocytes # (Manual) PT INR ABG pH POC ABG pCO2 POC ABG pO2 ABG pO2 ABG HCO3 ABG O2 Saturation ABG Base Excess ABG Hemoglobin ABG Oxyhemoglobin ABG Sodium ABG Potassium ABG Chloride ABG Glucose Oxyhemoglobin Carboxyhemoglobin Sodium Potassium Chloride Carbon Dioxide BUN Creatinine Glucose POC Glucose 139 H 139 H 161 H Lactic Acid Calcium Phosphorus Magnesium Total Creatine Kinase Troponin T Total Protein Albumin Triglycerides LDL Cholesterol Direct HDL Cholesterol Arterial Blood Glucose Arterial Blood Ionized Calcium Urine pH Urine WBC (Auto) Vancomycin Trough Salicylates Acetaminophen Crossmatch 11/01/20 11/01/20 11/02/20 23:20 Unknown 04:30 WBC 18.2 H RBC 3.27 L Hgb 9.9 L Hct 30.1 L D MCV MCH MCHC RDW 15.7 H Plt Count 34 L Lymph % (Auto) Seg Neutrophils % Seg Neuts % (Manual) Lymphocytes % (Manual) Nucleated RBC % Seg Neutrophils # Seg Neutrophils # Man Lymphocytes # (Manual) Monocytes # (Manual) PT INR ABG pH 7.456 H POC ABG pCO2 POC ABG pO2 ABG pO2 ABG HCO3 ABG O2 Saturation ABG Base Excess ABG Hemoglobin 9.2 L ABG Oxyhemoglobin ABG Sodium ABG Potassium ABG Chloride ABG Glucose Oxyhemoglobin Carboxyhemoglobin Sodium Potassium Chloride Carbon Dioxide BUN Creatinine Glucose POC Glucose 168 H Lactic Acid Calcium Phosphorus Magnesium Total Creatine Kinase Troponin T Total Protein Albumin Triglycerides LDL Cholesterol Direct HDL Cholesterol Arterial Blood Glucose Arterial Blood Ionized Calcium Urine pH Urine WBC (Auto) Vancomycin Trough Salicylates Acetaminophen Crossmatch 11/02/20 11/02/20 11/02/20 06:29 08:40 08:40 WBC 16.6 H RBC 2.87 L Hgb 8.8 L Hct 26.6 L MCV MCH MCHC RDW 15.8 H Plt Count 30 L Lymph % (Auto) Seg Neutrophils % Seg Neuts % (Manual) 97.0 H Lymphocytes % (Manual) 2.0 L Nucleated RBC % 1.0 H Seg Neutrophils # Seg Neutrophils # Man 16.1 H Lymphocytes # (Manual) 0.3 L Monocytes # (Manual) PT INR ABG pH POC ABG pCO2 POC ABG pO2 ABG pO2 ABG HCO3 ABG O2 Saturation ABG Base Excess ABG Hemoglobin ABG Oxyhemoglobin ABG Sodium ABG Potassium ABG Chloride ABG Glucose Oxyhemoglobin Carboxyhemoglobin Sodium Potassium 2.4 L* D Chloride 110.2 H Carbon Dioxide BUN 23 H Creatinine 0.4 L Glucose 154 H POC Glucose 131 H Lactic Acid Calcium 6.1 L Phosphorus Magnesium 1.50 L Total Creatine Kinase Troponin T Total Protein Albumin Triglycerides LDL Cholesterol Direct HDL Cholesterol Arterial Blood Glucose Arterial Blood Ionized Calcium Urine pH Urine WBC (Auto) Vancomycin Trough Salicylates Acetaminophen Crossmatch 11/02/20 11/02/20 11/02/20 13:17 17:25 18:05 WBC RBC Hgb Hct MCV MCH MCHC RDW Plt Count Lymph % (Auto) Seg Neutrophils % Seg Neuts % (Manual) Lymphocytes % (Manual) Nucleated RBC % Seg Neutrophils # Seg Neutrophils # Man Lymphocytes # (Manual) Monocytes # (Manual) PT INR ABG pH POC ABG pCO2 POC ABG pO2 ABG pO2 ABG HCO3 ABG O2 Saturation ABG Base Excess ABG Hemoglobin ABG Oxyhemoglobin ABG Sodium ABG Potassium ABG Chloride ABG Glucose Oxyhemoglobin Carboxyhemoglobin Sodium Potassium 3.1 L D Chloride Carbon Dioxide BUN Creatinine Glucose POC Glucose 134 H 140 H Lactic Acid Calcium Phosphorus Magnesium Total Creatine Kinase Troponin T Total Protein Albumin Triglycerides LDL Cholesterol Direct HDL Cholesterol Arterial Blood Glucose Arterial Blood Ionized Calcium Urine pH Urine WBC (Auto) Vancomycin Trough Salicylates Acetaminophen Crossmatch 11/02/20 11/03/20 11/03/20 23:36 04:15 05:07 WBC RBC Hgb Hct MCV MCH MCHC RDW Plt Count Lymph % (Auto) Seg Neutrophils % Seg Neuts % (Manual) Lymphocytes % (Manual) Nucleated RBC % Seg Neutrophils # Seg Neutrophils # Man Lymphocytes # (Manual) Monocytes # (Manual) PT INR ABG pH POC ABG pCO2 POC ABG pO2 ABG pO2 ABG HCO3 ABG O2 Saturation ABG Base Excess ABG Hemoglobin ABG Oxyhemoglobin ABG Sodium ABG Potassium ABG Chloride ABG Glucose Oxyhemoglobin Carboxyhemoglobin Sodium Potassium 3.0 L Chloride 111.8 H Carbon Dioxide BUN 24 H Creatinine 0.3 L Glucose 141 H POC Glucose 127 H 156 H Lactic Acid Calcium 5.8 L* Phosphorus Magnesium 1.60 L Total Creatine Kinase Troponin T Total Protein Albumin Triglycerides LDL Cholesterol Direct HDL Cholesterol Arterial Blood Glucose Arterial Blood Ionized Calcium Urine pH Urine WBC (Auto) Vancomycin Trough Salicylates Acetaminophen Crossmatch 11/03/20 11/03/20 11/04/20 11:14 17:31 00:17 WBC RBC Hgb Hct MCV MCH MCHC RDW Plt Count Lymph % (Auto) Seg Neutrophils % Seg Neuts % (Manual) Lymphocytes % (Manual) Nucleated RBC % Seg Neutrophils # Seg Neutrophils # Man Lymphocytes # (Manual) Monocytes # (Manual) PT INR ABG pH POC ABG pCO2 POC ABG pO2 ABG pO2 ABG HCO3 ABG O2 Saturation ABG Base Excess ABG Hemoglobin ABG Oxyhemoglobin ABG Sodium ABG Potassium ABG Chloride ABG Glucose Oxyhemoglobin Carboxyhemoglobin Sodium Potassium Chloride Carbon Dioxide BUN Creatinine Glucose POC Glucose 137 H 151 H 156 H Lactic Acid Calcium Phosphorus Magnesium Total Creatine Kinase Troponin T Total Protein Albumin Triglycerides LDL Cholesterol Direct HDL Cholesterol Arterial Blood Glucose Arterial Blood Ionized Calcium Urine pH Urine WBC (Auto) Vancomycin Trough Salicylates Acetaminophen Crossmatch 11/04/20 11/04/20 11/04/20 05:34 05:34 11:16 WBC 21.9 H RBC 2.67 L Hgb 8.2 L Hct 24.8 L MCV MCH MCHC RDW 15.6 H Plt Count 48 L Lymph % (Auto) Seg Neutrophils % Seg Neuts % (Manual) Lymphocytes % (Manual) Nucleated RBC % Seg Neutrophils # Seg Neutrophils # Man Lymphocytes # (Manual) Monocytes # (Manual) PT INR ABG pH POC ABG pCO2 POC ABG pO2 ABG pO2 ABG HCO3 ABG O2 Saturation ABG Base Excess ABG Hemoglobin ABG Oxyhemoglobin ABG Sodium ABG Potassium ABG Chloride ABG Glucose Oxyhemoglobin Carboxyhemoglobin Sodium 146 H Potassium Chloride 114.6 H Carbon Dioxide BUN 29 H Creatinine 0.3 L Glucose 173 H POC Glucose 156 H Lactic Acid Calcium 5.7 L* Phosphorus Magnesium Total Creatine Kinase Troponin T Total Protein Albumin Triglycerides LDL Cholesterol Direct HDL Cholesterol Arterial Blood Glucose Arterial Blood Ionized Calcium Urine pH Urine WBC (Auto) Vancomycin Trough Salicylates Acetaminophen Crossmatch 11/04/20 11/04/20 11/04/20 11:42 17:18 23:12 WBC RBC Hgb Hct MCV MCH MCHC RDW Plt Count Lymph % (Auto) Seg Neutrophils % Seg Neuts % (Manual) Lymphocytes % (Manual) Nucleated RBC % Seg Neutrophils # Seg Neutrophils # Man Lymphocytes # (Manual) Monocytes # (Manual) PT INR ABG pH 7.525 H POC ABG pCO2 28.9 L POC ABG pO2 64.3 L ABG pO2 ABG HCO3 ABG O2 Saturation ABG Base Excess ABG Hemoglobin 8.2 L ABG Oxyhemoglobin ABG Sodium ABG Potassium 3.3 L ABG Chloride 115.0 H ABG Glucose 165 H Oxyhemoglobin Carboxyhemoglobin Sodium Potassium Chloride Carbon Dioxide BUN Creatinine Glucose POC Glucose 144 H 155 H Lactic Acid Calcium Phosphorus Magnesium Total Creatine Kinase Troponin T Total Protein Albumin Triglycerides LDL Cholesterol Direct HDL Cholesterol Arterial Blood Glucose 165 H Arterial Blood Ionized Calcium 4.0 L Urine pH Urine WBC (Auto) Vancomycin Trough Salicylates Acetaminophen Crossmatch 11/05/20 11/05/20 11/05/20 04:48 04:48 05:57 WBC 17.4 H RBC 2.49 L Hgb 7.8 L Hct 23.5 L MCV MCH MCHC RDW 16.0 H Plt Count 69 L Lymph % (Auto) Seg Neutrophils % Seg Neuts % (Manual) Lymphocytes % (Manual) Nucleated RBC % Seg Neutrophils # Seg Neutrophils # Man Lymphocytes # (Manual) Monocytes # (Manual) PT INR ABG pH POC ABG pCO2 POC ABG pO2 ABG pO2 ABG HCO3 ABG O2 Saturation ABG Base Excess ABG Hemoglobin ABG Oxyhemoglobin ABG Sodium ABG Potassium ABG Chloride ABG Glucose Oxyhemoglobin Carboxyhemoglobin Sodium 147 H Potassium 3.5 L Chloride 115.4 H Carbon Dioxide BUN 34 H Creatinine 0.3 L Glucose 154 H POC Glucose 146 H Lactic Acid Calcium 6.1 L Phosphorus 2.00 L Magnesium Total Creatine Kinase Troponin T Total Protein Albumin Triglycerides LDL Cholesterol Direct HDL Cholesterol Arterial Blood Glucose Arterial Blood Ionized Calcium Urine pH Urine WBC (Auto) Vancomycin Trough Salicylates Acetaminophen Crossmatch 11/05/20 11/05/20 11/05/20 11:33 17:52 23:37 WBC RBC Hgb Hct MCV MCH MCHC RDW Plt Count Lymph % (Auto) Seg Neutrophils % Seg Neuts % (Manual) Lymphocytes % (Manual) Nucleated RBC % Seg Neutrophils # Seg Neutrophils # Man Lymphocytes # (Manual) Monocytes # (Manual) PT INR ABG pH POC ABG pCO2 POC ABG pO2 ABG pO2 ABG HCO3 ABG O2 Saturation ABG Base Excess ABG Hemoglobin ABG Oxyhemoglobin ABG Sodium ABG Potassium ABG Chloride ABG Glucose Oxyhemoglobin Carboxyhemoglobin Sodium Potassium Chloride Carbon Dioxide BUN Creatinine Glucose POC Glucose 144 H 136 H 151 H Lactic Acid Calcium Phosphorus Magnesium Total Creatine Kinase Troponin T Total Protein Albumin Triglycerides LDL Cholesterol Direct HDL Cholesterol Arterial Blood Glucose Arterial Blood Ionized Calcium Urine pH Urine WBC (Auto) Vancomycin Trough Salicylates Acetaminophen Crossmatch 11/06/20 11/06/20 11/06/20 05:36 06:45 06:45 WBC 15.0 H RBC 2.33 L Hgb 7.2 L Hct 22.1 L MCV 95 H MCH MCHC RDW 16.2 H Plt Count 103 L Lymph % (Auto) Seg Neutrophils % Seg Neuts % (Manual) Lymphocytes % (Manual) Nucleated RBC % Seg Neutrophils # Seg Neutrophils # Man Lymphocytes # (Manual) Monocytes # (Manual) PT INR ABG pH POC ABG pCO2 POC ABG pO2 ABG pO2 ABG HCO3 ABG O2 Saturation ABG Base Excess ABG Hemoglobin ABG Oxyhemoglobin ABG Sodium ABG Potassium ABG Chloride ABG Glucose Oxyhemoglobin Carboxyhemoglobin Sodium 148 H Potassium Chloride 118.2 H Carbon Dioxide BUN 32 H Creatinine 0.4 L Glucose 153 H POC Glucose 140 H Lactic Acid Calcium 6.4 L Phosphorus 0.90 L* D Magnesium Total Creatine Kinase Troponin T Total Protein 5.0 L Albumin 1.4 L Triglycerides LDL Cholesterol Direct HDL Cholesterol Arterial Blood Glucose Arterial Blood Ionized Calcium Urine pH Urine WBC (Auto) Vancomycin Trough Salicylates Acetaminophen Crossmatch 11/06/20 11/06/20 11/06/20 11:32 17:37 23:19 WBC RBC Hgb Hct MCV MCH MCHC RDW Plt Count Lymph % (Auto) Seg Neutrophils % Seg Neuts % (Manual) Lymphocytes % (Manual) Nucleated RBC % Seg Neutrophils # Seg Neutrophils # Man Lymphocytes # (Manual) Monocytes # (Manual) PT INR ABG pH POC ABG pCO2 POC ABG pO2 ABG pO2 ABG HCO3 ABG O2 Saturation ABG Base Excess ABG Hemoglobin ABG Oxyhemoglobin ABG Sodium ABG Potassium ABG Chloride ABG Glucose Oxyhemoglobin Carboxyhemoglobin Sodium Potassium Chloride Carbon Dioxide BUN Creatinine Glucose POC Glucose 132 H 133 H 145 H Lactic Acid Calcium Phosphorus Magnesium Total Creatine Kinase Troponin T Total Protein Albumin Triglycerides LDL Cholesterol Direct HDL Cholesterol Arterial Blood Glucose Arterial Blood Ionized Calcium Urine pH Urine WBC (Auto) Vancomycin Trough Salicylates Acetaminophen Crossmatch 11/07/20 11/07/20 11/07/20 12:55 16:45 16:45 WBC 12.0 H RBC 3.63 L Hgb 11.4 L D Hct MCV 104 H MCH MCHC 30 L RDW 18.0 H Plt Count 133 L Lymph % (Auto) Seg Neutrophils % Seg Neuts % (Manual) Lymphocytes % (Manual) Nucleated RBC % Seg Neutrophils # Seg Neutrophils # Man Lymphocytes # (Manual) Monocytes # (Manual) PT INR ABG pH POC ABG pCO2 POC ABG pO2 ABG pO2 ABG HCO3 ABG O2 Saturation ABG Base Excess ABG Hemoglobin 7.7 L ABG Oxyhemoglobin ABG Sodium ABG Potassium ABG Chloride ABG Glucose Oxyhemoglobin 94.9 L Carboxyhemoglobin Sodium 149 H Potassium Chloride 119.8 H Carbon Dioxide BUN 31 H Creatinine 0.4 L Glucose 130 H POC Glucose Lactic Acid Calcium 6.5 L Phosphorus Magnesium Total Creatine Kinase Troponin T Total Protein Albumin Triglycerides LDL Cholesterol Direct HDL Cholesterol Arterial Blood Glucose Arterial Blood Ionized Calcium Urine pH Urine WBC (Auto) Vancomycin Trough Salicylates Acetaminophen Crossmatch 11/07/20 11/08/20 11/08/20 17:23 00:12 06:11 WBC RBC Hgb Hct MCV MCH MCHC RDW Plt Count Lymph % (Auto) Seg Neutrophils % Seg Neuts % (Manual) Lymphocytes % (Manual) Nucleated RBC % Seg Neutrophils # Seg Neutrophils # Man Lymphocytes # (Manual) Monocytes # (Manual) PT INR ABG pH POC ABG pCO2 POC ABG pO2 ABG pO2 ABG HCO3 ABG O2 Saturation ABG Base Excess ABG Hemoglobin ABG Oxyhemoglobin ABG Sodium ABG Potassium ABG Chloride ABG Glucose Oxyhemoglobin Carboxyhemoglobin Sodium Potassium Chloride Carbon Dioxide BUN Creatinine Glucose POC Glucose 115 H 129 H 109 H Lactic Acid Calcium Phosphorus Magnesium Total Creatine Kinase Troponin T Total Protein Albumin Triglycerides LDL Cholesterol Direct HDL Cholesterol Arterial Blood Glucose Arterial Blood Ionized Calcium Urine pH Urine WBC (Auto) Vancomycin Trough Salicylates Acetaminophen Crossmatch 11/08/20 11/08/20 11/08/20 17:36 23:49 23:58 WBC RBC Hgb Hct MCV MCH MCHC RDW Plt Count Lymph % (Auto) Seg Neutrophils % Seg Neuts % (Manual) Lymphocytes % (Manual) Nucleated RBC % Seg Neutrophils # Seg Neutrophils # Man Lymphocytes # (Manual) Monocytes # (Manual) PT INR ABG pH POC ABG pCO2 POC ABG pO2 ABG pO2 ABG HCO3 ABG O2 Saturation ABG Base Excess ABG Hemoglobin ABG Oxyhemoglobin ABG Sodium ABG Potassium ABG Chloride ABG Glucose Oxyhemoglobin Carboxyhemoglobin Sodium Potassium Chloride Carbon Dioxide BUN Creatinine Glucose 138 H POC Glucose 38 L 36 L Lactic Acid Calcium Phosphorus Magnesium Total Creatine Kinase Troponin T Total Protein Albumin Triglycerides LDL Cholesterol Direct HDL Cholesterol Arterial Blood Glucose Arterial Blood Ionized Calcium Urine pH Urine WBC (Auto) Vancomycin Trough Salicylates Acetaminophen Crossmatch 11/09/20 11/09/20 11/09/20 05:33 06:00 06:00 WBC 13.1 H RBC 2.35 L Hgb 7.6 L D Hct 22.9 L D MCV 97 H MCH MCHC RDW 16.8 H Plt Count Lymph % (Auto) 9.1 L Seg Neutrophils % 84.8 H Seg Neuts % (Manual) Lymphocytes % (Manual) Nucleated RBC % Seg Neutrophils # 11.1 H Seg Neutrophils # Man Lymphocytes # (Manual) Monocytes # (Manual) PT INR ABG pH POC ABG pCO2 POC ABG pO2 ABG pO2 ABG HCO3 ABG O2 Saturation ABG Base Excess ABG Hemoglobin ABG Oxyhemoglobin ABG Sodium ABG Potassium ABG Chloride ABG Glucose Oxyhemoglobin Carboxyhemoglobin Sodium 150 H Potassium 3.4 L D Chloride 119.2 H Carbon Dioxide BUN 30 H Creatinine 0.4 L Glucose 137 H POC Glucose 58 L Lactic Acid Calcium 7.2 L Phosphorus Magnesium Total Creatine Kinase Troponin T Total Protein Albumin Triglycerides LDL Cholesterol Direct HDL Cholesterol Arterial Blood Glucose Arterial Blood Ionized Calcium Urine pH Urine WBC (Auto) Vancomycin Trough Salicylates Acetaminophen Crossmatch 11/09/20 11/09/20 11/10/20 06:08 22:16 13:46 WBC 16.1 H RBC 2.52 L Hgb 8.1 L Hct 25.2 L MCV 100 H MCH MCHC RDW 18.2 H Plt Count Lymph % (Auto) Seg Neutrophils % Seg Neuts % (Manual) 90.0 H Lymphocytes % (Manual) 3.0 L Nucleated RBC % Seg Neutrophils # Seg Neutrophils # Man 14.5 H Lymphocytes # (Manual) 0.5 L Monocytes # (Manual) 1.1 H PT INR ABG pH POC ABG pCO2 POC ABG pO2 ABG pO2 ABG HCO3 ABG O2 Saturation ABG Base Excess ABG Hemoglobin ABG Oxyhemoglobin ABG Sodium ABG Potassium ABG Chloride ABG Glucose Oxyhemoglobin Carboxyhemoglobin Sodium Potassium Chloride Carbon Dioxide BUN Creatinine Glucose POC Glucose 122 H 120 H Lactic Acid Calcium Phosphorus Magnesium Total Creatine Kinase Troponin T Total Protein Albumin Triglycerides LDL Cholesterol Direct HDL Cholesterol Arterial Blood Glucose Arterial Blood Ionized Calcium Urine pH Urine WBC (Auto) Vancomycin Trough Salicylates Acetaminophen Crossmatch 11/10/20 11/10/20 11/11/20 13:46 15:59 11:43 WBC RBC Hgb Hct MCV MCH MCHC RDW Plt Count Lymph % (Auto) Seg Neutrophils % Seg Neuts % (Manual) Lymphocytes % (Manual) Nucleated RBC % Seg Neutrophils # Seg Neutrophils # Man Lymphocytes # (Manual) Monocytes # (Manual) PT INR ABG pH POC ABG pCO2 POC ABG pO2 ABG pO2 ABG HCO3 ABG O2 Saturation ABG Base Excess ABG Hemoglobin ABG Oxyhemoglobin ABG Sodium ABG Potassium ABG Chloride ABG Glucose Oxyhemoglobin Carboxyhemoglobin Sodium 153 H Potassium Chloride 120.6 H Carbon Dioxide BUN 27 H Creatinine 0.3 L Glucose 112 H POC Glucose 40 L 124 H Lactic Acid Calcium 6.8 L Phosphorus Magnesium Total Creatine Kinase Troponin T Total Protein Albumin Triglycerides LDL Cholesterol Direct HDL Cholesterol Arterial Blood Glucose Arterial Blood Ionized Calcium Urine pH Urine WBC (Auto) Vancomycin Trough Salicylates Acetaminophen Crossmatch 11/11/20 11/11/20 11/11/20 14:38 14:38 14:38 WBC 13.8 H RBC 2.43 L Hgb 7.6 L Hct 24.0 L MCV 99 H MCH MCHC RDW 18.0 H Plt Count Lymph % (Auto) Seg Neutrophils % Seg Neuts % (Manual) Lymphocytes % (Manual) Nucleated RBC % Seg Neutrophils # Seg Neutrophils # Man Lymphocytes # (Manual) Monocytes # (Manual) PT 15.0 H INR 1.18 H ABG pH POC ABG pCO2 POC ABG pO2 ABG pO2 ABG HCO3 ABG O2 Saturation ABG Base Excess ABG Hemoglobin ABG Oxyhemoglobin ABG Sodium ABG Potassium ABG Chloride ABG Glucose Oxyhemoglobin Carboxyhemoglobin Sodium 154 H Potassium 3.1 L D Chloride 122.1 H Carbon Dioxide BUN 26 H Creatinine 0.4 L Glucose 140 H POC Glucose Lactic Acid Calcium 7.3 L Phosphorus Magnesium Total Creatine Kinase Troponin T Total Protein Albumin Triglycerides LDL Cholesterol Direct HDL Cholesterol Arterial Blood Glucose Arterial Blood Ionized Calcium Urine pH Urine WBC (Auto) Vancomycin Trough Salicylates Acetaminophen Crossmatch 11/11/20 11/11/20 11/12/20 18:39 18:42 00:03 WBC RBC Hgb Hct MCV MCH MCHC RDW Plt Count Lymph % (Auto) Seg Neutrophils % Seg Neuts % (Manual) Lymphocytes % (Manual) Nucleated RBC % Seg Neutrophils # Seg Neutrophils # Man Lymphocytes # (Manual) Monocytes # (Manual) PT INR ABG pH POC ABG pCO2 POC ABG pO2 ABG pO2 ABG HCO3 ABG O2 Saturation ABG Base Excess ABG Hemoglobin ABG Oxyhemoglobin ABG Sodium ABG Potassium ABG Chloride ABG Glucose Oxyhemoglobin Carboxyhemoglobin Sodium Potassium Chloride Carbon Dioxide BUN Creatinine Glucose POC Glucose 45 L 66 L 108 H Lactic Acid Calcium Phosphorus Magnesium Total Creatine Kinase Troponin T Total Protein Albumin Triglycerides LDL Cholesterol Direct HDL Cholesterol Arterial Blood Glucose Arterial Blood Ionized Calcium Urine pH Urine WBC (Auto) Vancomycin Trough Salicylates Acetaminophen Crossmatch 11/12/20 11/12/20 11/12/20 05:44 08:33 08:33 WBC 13.4 H RBC 2.35 L Hgb 7.5 L Hct 23.7 L MCV 101 H MCH MCHC RDW 19.7 H Plt Count Lymph % (Auto) Seg Neutrophils % Seg Neuts % (Manual) Lymphocytes % (Manual) Nucleated RBC % Seg Neutrophils # Seg Neutrophils # Man Lymphocytes # (Manual) Monocytes # (Manual) PT INR ABG pH POC ABG pCO2 POC ABG pO2 ABG pO2 ABG HCO3 ABG O2 Saturation ABG Base Excess ABG Hemoglobin ABG Oxyhemoglobin ABG Sodium ABG Potassium ABG Chloride ABG Glucose Oxyhemoglobin Carboxyhemoglobin Sodium 154 H Potassium 2.9 L* Chloride 121.4 H Carbon Dioxide BUN 26 H Creatinine 0.4 L Glucose 153 H POC Glucose 114 H Lactic Acid Calcium 7.3 L Phosphorus Magnesium Total Creatine Kinase Troponin T Total Protein Albumin Triglycerides LDL Cholesterol Direct HDL Cholesterol Arterial Blood Glucose Arterial Blood Ionized Calcium Urine pH Urine WBC (Auto) Vancomycin Trough Salicylates Acetaminophen Crossmatch 11/12/20 11/12/20 11/13/20 11:38 17:17 05:28 WBC RBC Hgb Hct MCV MCH MCHC RDW Plt Count Lymph % (Auto) Seg Neutrophils % Seg Neuts % (Manual) Lymphocytes % (Manual) Nucleated RBC % Seg Neutrophils # Seg Neutrophils # Man Lymphocytes # (Manual) Monocytes # (Manual) PT INR ABG pH POC ABG pCO2 51.4 H POC ABG pO2 41.7 L ABG pO2 ABG HCO3 ABG O2 Saturation ABG Base Excess ABG Hemoglobin 9.1 L ABG Oxyhemoglobin 72.2 L ABG Sodium 151.1 H ABG Potassium 3.2 L ABG Chloride 122.0 H ABG Glucose 191 H Oxyhemoglobin Carboxyhemoglobin Sodium Potassium Chloride Carbon Dioxide BUN Creatinine Glucose POC Glucose 125 H 127 H Lactic Acid Calcium Phosphorus Magnesium Total Creatine Kinase Troponin T Total Protein Albumin Triglycerides LDL Cholesterol Direct HDL Cholesterol Arterial Blood Glucose 191 H Arterial Blood Ionized Calcium Urine pH Urine WBC (Auto) Vancomycin Trough Salicylates Acetaminophen Crossmatch 11/13/20 11/13/20 11/13/20 10:46 23:15 23:15 WBC 12.2 H RBC 2.41 L Hgb 7.7 L Hct 24.5 L MCV 102 H MCH MCHC RDW 23.0 H Plt Count Lymph % (Auto) Seg Neutrophils % Seg Neuts % (Manual) Lymphocytes % (Manual) Nucleated RBC % Seg Neutrophils # Seg Neutrophils # Man Lymphocytes # (Manual) Monocytes # (Manual) PT INR ABG pH POC ABG pCO2 POC ABG pO2 ABG pO2 ABG HCO3 ABG O2 Saturation ABG Base Excess ABG Hemoglobin ABG Oxyhemoglobin ABG Sodium ABG Potassium ABG Chloride ABG Glucose Oxyhemoglobin Carboxyhemoglobin Sodium Potassium Chloride Carbon Dioxide BUN Creatinine Glucose POC Glucose 153 H Lactic Acid Calcium Phosphorus Magnesium Total Creatine Kinase Troponin T 0.123 H* Total Protein Albumin Triglycerides LDL Cholesterol Direct HDL Cholesterol Arterial Blood Glucose Arterial Blood Ionized Calcium Urine pH Urine WBC (Auto) Vancomycin Trough Salicylates Acetaminophen Crossmatch 11/13/20 11/13/20 11/14/20 23:15 Unknown 05:26 WBC RBC Hgb Hct MCV MCH MCHC RDW Plt Count Lymph % (Auto) Seg Neutrophils % Seg Neuts % (Manual) Lymphocytes % (Manual) Nucleated RBC % Seg Neutrophils # Seg Neutrophils # Man Lymphocytes # (Manual) Monocytes # (Manual) PT INR ABG pH 7.295 L POC ABG pCO2 56.0 H POC ABG pO2 49.1 L ABG pO2 ABG HCO3 ABG O2 Saturation ABG Base Excess ABG Hemoglobin 8.3 L ABG Oxyhemoglobin 77.1 L ABG Sodium 150.5 H ABG Potassium 3.3 L ABG Chloride 121.0 H ABG Glucose 187 H Oxyhemoglobin Carboxyhemoglobin Sodium 152 H Potassium 3.3 L Chloride 117.8 H Carbon Dioxide BUN 25 H Creatinine 0.4 L Glucose 123 H POC Glucose 46 L Lactic Acid Calcium 7.5 L Phosphorus Magnesium Total Creatine Kinase Troponin T Total Protein Albumin Triglycerides LDL Cholesterol Direct HDL Cholesterol Arterial Blood Glucose 187 H Arterial Blood Ionized Calcium Urine pH Urine WBC (Auto) Vancomycin Trough Salicylates Acetaminophen Crossmatch 11/14/20 11/14/20 11/14/20 06:26 22:26 22:26 WBC RBC 2.75 L Hgb 9.0 L Hct 27.8 L MCV 101 H MCH 33 H MCHC RDW 22.8 H Plt Count Lymph % (Auto) Seg Neutrophils % Seg Neuts % (Manual) Lymphocytes % (Manual) Nucleated RBC % Seg Neutrophils # Seg Neutrophils # Man Lymphocytes # (Manual) Monocytes # (Manual) PT INR ABG pH POC ABG pCO2 POC ABG pO2 ABG pO2 ABG HCO3 ABG O2 Saturation ABG Base Excess ABG Hemoglobin ABG Oxyhemoglobin ABG Sodium ABG Potassium ABG Chloride ABG Glucose Oxyhemoglobin Carboxyhemoglobin Sodium 147 H Potassium 3.3 L Chloride 114.3 H Carbon Dioxide BUN 23 H Creatinine 0.3 L Glucose 209 H POC Glucose 135 H Lactic Acid Calcium 7.4 L Phosphorus Magnesium Total Creatine Kinase Troponin T Total Protein Albumin Triglycerides LDL Cholesterol Direct HDL Cholesterol Arterial Blood Glucose Arterial Blood Ionized Calcium Urine pH Urine WBC (Auto) Vancomycin Trough Salicylates Acetaminophen Crossmatch 11/14/20 11/15/20 11/15/20 23:22 04:28 05:57 WBC RBC Hgb Hct MCV MCH MCHC RDW Plt Count Lymph % (Auto) Seg Neutrophils % Seg Neuts % (Manual) Lymphocytes % (Manual) Nucleated RBC % Seg Neutrophils # Seg Neutrophils # Man Lymphocytes # (Manual) Monocytes # (Manual) PT INR ABG pH POC ABG pCO2 POC ABG pO2 ABG pO2 ABG HCO3 ABG O2 Saturation ABG Base Excess ABG Hemoglobin ABG Oxyhemoglobin ABG Sodium ABG Potassium ABG Chloride ABG Glucose Oxyhemoglobin Carboxyhemoglobin Sodium 152 H Potassium Chloride 118.1 H Carbon Dioxide BUN 22 H Creatinine 0.3 L Glucose 190 H POC Glucose 136 H 151 H Lactic Acid Calcium 7.5 L Phosphorus Magnesium Total Creatine Kinase Troponin T Total Protein Albumin Triglycerides LDL Cholesterol Direct HDL Cholesterol Arterial Blood Glucose Arterial Blood Ionized Calcium Urine pH Urine WBC (Auto) Vancomycin Trough Salicylates Acetaminophen Crossmatch 11/15/20 11/15/20 11/15/20 11:40 16:56 21:53 WBC RBC Hgb Hct MCV MCH MCHC RDW Plt Count Lymph % (Auto) Seg Neutrophils % Seg Neuts % (Manual) Lymphocytes % (Manual) Nucleated RBC % Seg Neutrophils # Seg Neutrophils # Man Lymphocytes # (Manual) Monocytes # (Manual) PT INR ABG pH 7.457 H POC ABG pCO2 POC ABG pO2 ABG pO2 48.3 L ABG HCO3 26.1 H ABG O2 Saturation 82.9 L ABG Base Excess ABG Hemoglobin 9.7 L ABG Oxyhemoglobin ABG Sodium ABG Potassium ABG Chloride ABG Glucose Oxyhemoglobin 81.0 L Carboxyhemoglobin Sodium Potassium Chloride Carbon Dioxide BUN Creatinine Glucose POC Glucose 129 H 115 H Lactic Acid Calcium Phosphorus Magnesium Total Creatine Kinase Troponin T Total Protein Albumin Triglycerides LDL Cholesterol Direct HDL Cholesterol Arterial Blood Glucose Arterial Blood Ionized Calcium Urine pH Urine WBC (Auto) Vancomycin Trough Salicylates Acetaminophen Crossmatch 11/15/20 11/16/20 11/16/20 23:12 00:07 00:09 WBC RBC Hgb Hct MCV MCH MCHC RDW Plt Count Lymph % (Auto) Seg Neutrophils % Seg Neuts % (Manual) Lymphocytes % (Manual) Nucleated RBC % Seg Neutrophils # Seg Neutrophils # Man Lymphocytes # (Manual) Monocytes # (Manual) PT INR ABG pH POC ABG pCO2 POC ABG pO2 ABG pO2 95.1 H ABG HCO3 26.6 H ABG O2 Saturation ABG Base Excess ABG Hemoglobin 7.5 L ABG Oxyhemoglobin ABG Sodium ABG Potassium ABG Chloride ABG Glucose Oxyhemoglobin Carboxyhemoglobin Sodium Potassium Chloride Carbon Dioxide BUN Creatinine Glucose POC Glucose 13 L 153 H Lactic Acid Calcium Phosphorus Magnesium Total Creatine Kinase Troponin T Total Protein Albumin Triglycerides LDL Cholesterol Direct HDL Cholesterol Arterial Blood Glucose Arterial Blood Ionized Calcium Urine pH Urine WBC (Auto) Vancomycin Trough Salicylates Acetaminophen Crossmatch 11/16/20 11/16/20 11/16/20 03:43 04:00 04:00 WBC RBC 2.33 L Hgb 7.7 L Hct 24.5 L MCV 105 H MCH 33 H MCHC 31 L RDW 22.9 H Plt Count Lymph % (Auto) Seg Neutrophils % Seg Neuts % (Manual) Lymphocytes % (Manual) Nucleated RBC % Seg Neutrophils # Seg Neutrophils # Man Lymphocytes # (Manual) Monocytes # (Manual) PT INR ABG pH 7.348 L POC ABG pCO2 POC ABG pO2 ABG pO2 91.6 H ABG HCO3 26.3 H ABG O2 Saturation ABG Base Excess ABG Hemoglobin 7.3 L ABG Oxyhemoglobin ABG Sodium ABG Potassium ABG Chloride ABG Glucose Oxyhemoglobin Carboxyhemoglobin Sodium 148 H Potassium 3.5 L Chloride 115.9 H Carbon Dioxide BUN Creatinine 0.4 L Glucose 195 H POC Glucose Lactic Acid Calcium 7.6 L Phosphorus Magnesium Total Creatine Kinase Troponin T Total Protein Albumin Triglycerides LDL Cholesterol Direct HDL Cholesterol Arterial Blood Glucose Arterial Blood Ionized Calcium Urine pH Urine WBC (Auto) Vancomycin Trough Salicylates Acetaminophen Crossmatch 11/16/20 11/16/20 11/16/20 05:16 07:40 12:10 WBC RBC Hgb Hct MCV MCH MCHC RDW Plt Count Lymph % (Auto) Seg Neutrophils % Seg Neuts % (Manual) Lymphocytes % (Manual) Nucleated RBC % Seg Neutrophils # Seg Neutrophils # Man Lymphocytes # (Manual) Monocytes # (Manual) PT INR ABG pH POC ABG pCO2 POC ABG pO2 ABG pO2 ABG HCO3 ABG O2 Saturation ABG Base Excess ABG Hemoglobin ABG Oxyhemoglobin ABG Sodium ABG Potassium ABG Chloride ABG Glucose Oxyhemoglobin Carboxyhemoglobin Sodium Potassium Chloride Carbon Dioxide BUN Creatinine Glucose POC Glucose 61 L 122 H 140 H Lactic Acid Calcium Phosphorus Magnesium Total Creatine Kinase Troponin T Total Protein Albumin Triglycerides LDL Cholesterol Direct HDL Cholesterol Arterial Blood Glucose Arterial Blood Ionized Calcium Urine pH Urine WBC (Auto) Vancomycin Trough Salicylates Acetaminophen Crossmatch 11/16/20 11/16/20 11/17/20 17:14 23:40 04:30 WBC RBC Hgb Hct MCV MCH MCHC RDW Plt Count Lymph % (Auto) Seg Neutrophils % Seg Neuts % (Manual) Lymphocytes % (Manual) Nucleated RBC % Seg Neutrophils # Seg Neutrophils # Man Lymphocytes # (Manual) Monocytes # (Manual) PT INR ABG pH 7.470 H POC ABG pCO2 POC ABG pO2 75.4 L ABG pO2 ABG HCO3 ABG O2 Saturation ABG Base Excess ABG Hemoglobin 7 L ABG Oxyhemoglobin ABG Sodium ABG Potassium ABG Chloride 116.0 H ABG Glucose 161 H Oxyhemoglobin Carboxyhemoglobin Sodium Potassium Chloride Carbon Dioxide BUN Creatinine Glucose POC Glucose 139 H 151 H Lactic Acid Calcium Phosphorus Magnesium Total Creatine Kinase Troponin T Total Protein Albumin Triglycerides LDL Cholesterol Direct HDL Cholesterol Arterial Blood Glucose 161 H Arterial Blood Ionized Calcium Urine pH Urine WBC (Auto) Vancomycin Trough Salicylates Acetaminophen Crossmatch 11/17/20 11/17/20 11/17/20 09:50 09:50 11:10 WBC RBC 2.02 L Hgb 6.6 L Hct 20.2 L MCV 100 H MCH 33 H MCHC RDW 22.4 H Plt Count Lymph % (Auto) Seg Neutrophils % Seg Neuts % (Manual) Lymphocytes % (Manual) Nucleated RBC % Seg Neutrophils # Seg Neutrophils # Man Lymphocytes # (Manual) Monocytes # (Manual) PT INR ABG pH POC ABG pCO2 POC ABG pO2 ABG pO2 ABG HCO3 ABG O2 Saturation ABG Base Excess ABG Hemoglobin ABG Oxyhemoglobin ABG Sodium ABG Potassium ABG Chloride ABG Glucose Oxyhemoglobin Carboxyhemoglobin Sodium Potassium Chloride 111.8 H Carbon Dioxide BUN 23 H Creatinine 0.4 L Glucose 142 H POC Glucose Lactic Acid Calcium 7.3 L Phosphorus Magnesium Total Creatine Kinase Troponin T Total Protein Albumin Triglycerides LDL Cholesterol Direct HDL Cholesterol Arterial Blood Glucose Arterial Blood Ionized Calcium Urine pH Urine WBC (Auto) Vancomycin Trough Salicylates Acetaminophen Crossmatch See Detail 11/17/20 11/17/20 11/17/20 11:52 11:57 23:22 WBC RBC Hgb Hct MCV MCH MCHC RDW Plt Count Lymph % (Auto) Seg Neutrophils % Seg Neuts % (Manual) Lymphocytes % (Manual) Nucleated RBC % Seg Neutrophils # Seg Neutrophils # Man Lymphocytes # (Manual) Monocytes # (Manual) PT INR ABG pH POC ABG pCO2 POC ABG pO2 ABG pO2 ABG HCO3 ABG O2 Saturation ABG Base Excess ABG Hemoglobin ABG Oxyhemoglobin ABG Sodium ABG Potassium ABG Chloride ABG Glucose Oxyhemoglobin Carboxyhemoglobin Sodium Potassium Chloride Carbon Dioxide BUN Creatinine Glucose POC Glucose 42 L 114 H 63 L Lactic Acid Calcium Phosphorus Magnesium Total Creatine Kinase Troponin T Total Protein Albumin Triglycerides LDL Cholesterol Direct HDL Cholesterol Arterial Blood Glucose Arterial Blood Ionized Calcium Urine pH Urine WBC (Auto) Vancomycin Trough Salicylates Acetaminophen Crossmatch 11/17/20 11/18/20 11/18/20 23:27 04:06 04:45 WBC RBC 2.36 L Hgb 7.4 L Hct 23.4 L MCV 99 H MCH MCHC RDW 21.6 H Plt Count Lymph % (Auto) Seg Neutrophils % Seg Neuts % (Manual) Lymphocytes % (Manual) Nucleated RBC % Seg Neutrophils # Seg Neutrophils # Man Lymphocytes # (Manual) Monocytes # (Manual) PT INR ABG pH POC ABG pCO2 POC ABG pO2 67.7 L ABG pO2 ABG HCO3 ABG O2 Saturation ABG Base Excess ABG Hemoglobin 8.3 L ABG Oxyhemoglobin ABG Sodium ABG Potassium ABG Chloride 112.0 H ABG Glucose 143 H Oxyhemoglobin Carboxyhemoglobin Sodium Potassium Chloride Carbon Dioxide BUN Creatinine Glucose POC Glucose 124 H Lactic Acid Calcium Phosphorus Magnesium Total Creatine Kinase Troponin T Total Protein Albumin Triglycerides LDL Cholesterol Direct HDL Cholesterol Arterial Blood Glucose 143 H Arterial Blood Ionized Calcium 4.5 L Urine pH Urine WBC (Auto) Vancomycin Trough Salicylates Acetaminophen Crossmatch 11/18/20 11/18/20 11/18/20 04:45 05:56 23:46 WBC RBC Hgb Hct MCV MCH MCHC RDW Plt Count Lymph % (Auto) Seg Neutrophils % Seg Neuts % (Manual) Lymphocytes % (Manual) Nucleated RBC % Seg Neutrophils # Seg Neutrophils # Man Lymphocytes # (Manual) Monocytes # (Manual) PT INR ABG pH POC ABG pCO2 POC ABG pO2 ABG pO2 ABG HCO3 ABG O2 Saturation ABG Base Excess ABG Hemoglobin ABG Oxyhemoglobin ABG Sodium ABG Potassium ABG Chloride ABG Glucose Oxyhemoglobin Carboxyhemoglobin Sodium Potassium Chloride 107.9 H Carbon Dioxide BUN 23 H Creatinine 0.4 L Glucose 139 H POC Glucose 133 H 66 L Lactic Acid Calcium 7.6 L Phosphorus Magnesium Total Creatine Kinase Troponin T Total Protein Albumin Triglycerides LDL Cholesterol Direct HDL Cholesterol Arterial Blood Glucose Arterial Blood Ionized Calcium Urine pH Urine WBC (Auto) Vancomycin Trough Salicylates Acetaminophen Crossmatch 11/18/20 11/19/20 11/19/20 23:52 05:48 06:36 WBC RBC Hgb Hct MCV MCH MCHC RDW Plt Count Lymph % (Auto) Seg Neutrophils % Seg Neuts % (Manual) Lymphocytes % (Manual) Nucleated RBC % Seg Neutrophils # Seg Neutrophils # Man Lymphocytes # (Manual) Monocytes # (Manual) PT INR ABG pH POC ABG pCO2 POC ABG pO2 ABG pO2 ABG HCO3 ABG O2 Saturation ABG Base Excess ABG Hemoglobin ABG Oxyhemoglobin ABG Sodium ABG Potassium ABG Chloride ABG Glucose Oxyhemoglobin Carboxyhemoglobin Sodium Potassium Chloride Carbon Dioxide BUN 21 H Creatinine 0.4 L Glucose 119 H POC Glucose 118 H 108 H Lactic Acid Calcium 7.8 L Phosphorus Magnesium Total Creatine Kinase Troponin T Total Protein Albumin Triglycerides LDL Cholesterol Direct HDL Cholesterol Arterial Blood Glucose Arterial Blood Ionized Calcium Urine pH Urine WBC (Auto) Vancomycin Trough Salicylates Acetaminophen Crossmatch 11/19/20 11/19/20 11/19/20 06:36 06:36 18:15 WBC RBC 2.79 L Hgb 9.0 L Hct 27.8 L MCV 100 H MCH MCHC RDW 20.7 H Plt Count Lymph % (Auto) Seg Neutrophils % Seg Neuts % (Manual) Lymphocytes % (Manual) Nucleated RBC % Seg Neutrophils # Seg Neutrophils # Man Lymphocytes # (Manual) Monocytes # (Manual) PT INR 1.15 H ABG pH POC ABG pCO2 POC ABG pO2 ABG pO2 ABG HCO3 ABG O2 Saturation ABG Base Excess ABG Hemoglobin ABG Oxyhemoglobin ABG Sodium ABG Potassium ABG Chloride ABG Glucose Oxyhemoglobin Carboxyhemoglobin Sodium Potassium Chloride Carbon Dioxide BUN Creatinine Glucose POC Glucose 115 H Lactic Acid Calcium Phosphorus Magnesium Total Creatine Kinase Troponin T Total Protein Albumin Triglycerides LDL Cholesterol Direct HDL Cholesterol Arterial Blood Glucose Arterial Blood Ionized Calcium Urine pH Urine WBC (Auto) Vancomycin Trough Salicylates Acetaminophen Crossmatch 11/19/20 11/19/20 11/20/20 23:27 Unknown 04:56 WBC RBC Hgb Hct MCV MCH MCHC RDW Plt Count Lymph % (Auto) Seg Neutrophils % Seg Neuts % (Manual) Lymphocytes % (Manual) Nucleated RBC % Seg Neutrophils # Seg Neutrophils # Man Lymphocytes # (Manual) Monocytes # (Manual) PT INR ABG pH 7.457 H POC ABG pCO2 POC ABG pO2 57.4 L ABG pO2 72.4 L ABG HCO3 26.9 H ABG O2 Saturation ABG Base Excess ABG Hemoglobin 8.5 L 9.6 L ABG Oxyhemoglobin 90.1 L ABG Sodium ABG Potassium ABG Chloride 109.0 H ABG Glucose 142 H Oxyhemoglobin 94.1 L Carboxyhemoglobin Sodium Potassium Chloride Carbon Dioxide BUN Creatinine Glucose POC Glucose 129 H Lactic Acid Calcium Phosphorus Magnesium Total Creatine Kinase Troponin T Total Protein Albumin Triglycerides LDL Cholesterol Direct HDL Cholesterol Arterial Blood Glucose 142 H Arterial Blood Ionized Calcium Urine pH Urine WBC (Auto) Vancomycin Trough Salicylates Acetaminophen Crossmatch 11/20/20 11/20/20 11/20/20 05:07 05:45 05:45 WBC 11.7 H RBC 2.74 L Hgb 8.9 L Hct 26.3 L MCV 96 H MCH 33 H MCHC RDW 18.6 H Plt Count Lymph % (Auto) Seg Neutrophils % Seg Neuts % (Manual) Lymphocytes % (Manual) Nucleated RBC % Seg Neutrophils # Seg Neutrophils # Man Lymphocytes # (Manual) Monocytes # (Manual) PT INR ABG pH POC ABG pCO2 POC ABG pO2 ABG pO2 ABG HCO3 ABG O2 Saturation ABG Base Excess ABG Hemoglobin ABG Oxyhemoglobin ABG Sodium ABG Potassium ABG Chloride ABG Glucose Oxyhemoglobin Carboxyhemoglobin Sodium Potassium Chloride Carbon Dioxide 31 H BUN Creatinine 0.4 L Glucose 127 H POC Glucose 129 H Lactic Acid Calcium 8.0 L Phosphorus Magnesium Total Creatine Kinase Troponin T Total Protein Albumin Triglycerides LDL Cholesterol Direct HDL Cholesterol Arterial Blood Glucose Arterial Blood Ionized Calcium Urine pH Urine WBC (Auto) Vancomycin Trough Salicylates Acetaminophen Crossmatch Allied health notes reviewed: nursing
[2020-11-20] MEDS ORDERED: FUROSEMIDE 20 MG/2 ML INJ IV ONE (11:00)
--- NOTE | 2020-11-20 11:53 | Progress Note ---
Assessment and Plan Awaiting trach & PEG, likely tomorrow. Agree with PRN IV Lasix as per Pulm recs. Continue IV Amio gtt for now. May increase gtt rate to 1 mg/min as needed for heart rate optimization (for HR > 130 bpm). Plan to transition to PO Amio upon completion of planned interventions. Avoid AV katherin blocking agents in the setting of bradycardic episodes. Recommend PRN repletion of electrolytes. F/u BMP & Mg in AM. Continue to hold AC in setting of anemia requiring transfusions. Maintain target Hgb > 8 g/dL in anticipation of open trach & PEG. Pt seen in conjunction with Dr. Juliette Baldwin, who agrees with the assessment and plan of care. - Patient Problems (1) Acute encephalopathy Current Visit: Yes Status: Acute (2) Acute respiratory failure Current Visit: Yes Status: Acute (3) PNA (pneumonia) Current Visit: Yes Status: Acute (4) Septic shock Current Visit: Yes Status: Acute (5) Sacral decubitus ulcer, stage IV Current Visit: Yes Status: Acute (6) UTI (urinary tract infection) Current Visit: Yes Status: Acute (7) Atrial fibrillation with RVR Current Visit: Yes Status: Acute (8) Hypomagnesemia Current Visit: Yes Status: Acute (9) Anemia Current Visit: Yes Status: Acute (10) NSTEMI (non-ST elevated myocardial infarction) Current Visit: Yes Status: Acute Plan to address problem: Type 2 (11) Severe malnutrition Current Visit: Yes Status: Acute Subjective Date of service: 11/20/20 Principal diagnosis: Acute Resp Fail, PNA, Septic Shock, Sacral Ulcer, AF with RVR Interval history: Off Levo gtt, weaned to Midodrine 10mg TID. Tele reviewed - AF 100-110s, intermittently up to 130s (on Amio gtt @ 0.5mg/min). Objective Last Vital Signs Temp 98.2 F 11/20/20 07:47 Pulse 100 H 11/20/20 11:15 Resp 20 11/20/20 11:15 BP 128/78 11/20/20 11:15 Pulse Ox 96 11/20/20 11:15 - Physical Examination General: Other (intubated) HEENT: Positive: Normocephaly Neck: Positive: neck supple, trachea midline Cardiac: Positive: irregularly irregular Lungs: Positive: Decreased Breath Sounds Neuro: Positive: Other (lethargic) Abdomen: Positive: Soft Skin: Positive: Wound (sacral). Negative: Rash Extremities: Present: upper extr. pulses, lower extr. pulses, edema, Other (chronic skin changes noted) - Labs and Meds CBC 11/20/20 Range/Units 05:45 WBC 11.7 H (4.5-11.0) K/mm3 RBC 2.74 L (3.65-5.03) M/mm3 Hgb 8.9 L (11.8-15.2) gm/dl Hct 26.3 L (35.5-45.6) % Plt Count 342 (140-440) K/mm3 Comprehensive Metabolic Panel 11/20/20 Range/Units 05:45 Sodium 142 (137-145) mmol/L Potassium 4.4 (3.6-5.0) mmol/L Chloride 106.2 (98-107) mmol/L Carbon Dioxide 31 H (22-30) mmol/L BUN 20 (9-20) mg/dL Creatinine 0.4 L (0.8-1.3) mg/dL Glucose 127 H (75-100) mg/dL Calcium 8.0 L (8.4-10.2) mg/dL - Imaging and Cardiology EKG: report reviewed, image reviewed Echo: report reviewed (10/28/2020- EF 55-60%, no significant valvular abnormalities) - Telemetry EKG Rhythm: Atrial Fibrillation - EKG Supraventricular dysrhythmia: atrial fibrillation Repolarization changes or abnormalities: nonspecific abnormality, ST segment, and/or T wave - Allied health notes Allied health notes reviewed: nursing
[2020-11-20] MEDS: VANCOMYCIN 2,000 MG in SODIUM CHLORIDE 0.9% 500 ML 500 ML IV SCH (12:22)
[2020-11-20] MEDS: AMIODARONE 900 MG in DEXTROSE 5% IN WATER 482 ML IV SCH (12:23)
--- NOTE | 2020-11-20 16:28 | Progress Note ---
Assessment and Plan Cultures: 10/26/2020 tracheal aspirate culture: MRSA 10/26/2020 blood culture: Proteus 10/27/2020 urine culture: Mixed hien 07/17/2021 tracheal aspirate culture staph aureus A/P: 75-year-old male, [facility] resident with seizure disorder, hypertension, depression, hyperlipidemia, chronic encephalopathy was sent to the hospital with worsening mental status: #Septic shock: probably from pneumonia. #Acute hypoxic respiratory failure: back on the vent. #Proteus bacteremia: multifactorial from infected sacral decubitus ulcer, bilateral pneumonia, UTI. S/P abx. #Acute diarrhea: ? C. difficile, improved on vancomycin p.o. Diarrhea improved, Cdiff test was not able to be done. #Necrotic, infected sacral decubitus ulcer: underwent debridement 10/29/2020, also noted to have brittle coccyx consistent with osteomyelitis. #UTI: UA with significant pyuria. #FAZAL: resolved #PVD: SFA occlusion. Not a candidate for revascularization per vascular Recs: Continue vancomycin as empiric therapy for bilateral pneumonia - planned 8 days Extend course of p.o. vancomycin due to initiation of systemic antibiotics Overall, guarded prognosis Eliezer Jack MD [facility] ([facility] O: [phone] F: [phone] Subjective Date of service: 11/20/20 Principal diagnosis: Acute Resp Fail, PNA, Septic Shock, Sacral Ulcer, AF with RVR Interval history: Afebrile, white count elevated 11.7. Imaging personally reviewed: Chest x-ray: Unchanged, persistent moderate patchy multifocal pneumonia Objective - Exam Narrative Exam: General appearance: alert in NAD on BiPAP Eyes: anicteric sclerae, moist conjunctivae; no lid-lag; PERRLA HENT: Normocephalic, Atraumatic; normal external ears, nares openNeck: supple, tracheal midline Lungs: Diminished breath sound bilaterally CV: RRR Abdomen: Soft, nontender Extremities: Bilateral upper extremity and lower extremity edema Skin: No rash. Extensive scrotal edema Psych: Not agitated Neuro: Alert, open eyes, follows commands - Constitutional Vitals: Vital Signs Temp Pulse Resp BP Pulse Ox 98.7 F 101 H 20 123/68 96 11/20/20 16:00 11/20/20 15:00 11/20/20 15:00 11/20/20 15:00 11/20/20 15:00 Temperature -Last 24 Hours Temperature 98.7 F Temperature 98.3 F Temperature 98.2 F Temperature 98.3 F Temperature 98.5 F Temperature 98.7 F Temperature 98.6 F - Labs CBC & Chem 7: 11/20/20 05:45 11/20/20 05:45 Labs: Abnormal lab results 11/19/20 11/19/20 11/20/20 Range/Units 18:15 23:27 04:56 WBC (4.5-11.0) K/mm3 RBC (3.65-5.03) M/mm3 Hgb (11.8-15.2) gm/dl Hct (35.5-45.6) % MCV (84-94) fl MCH (28-32) pg RDW (13.2-15.2) % ABG pH 7.457 H (7.320-7.450) POC ABG pO2 57.4 L (83-108) mmHg ABG Hemoglobin 9.6 L (12.0-17.5) ABG Oxyhemoglobin 90.1 L (94-98) ABG Chloride 109.0 H (98-107) mmol/L ABG Glucose 142 H (65-95) mg/dL Carbon Dioxide (22-30) mmol/L Creatinine (0.8-1.3) mg/dL Glucose (75-100) mg/dL POC Glucose 115 H 129 H (70-105) mg/dL Calcium (8.4-10.2) mg/dL Arterial Blood Glucose 142 H (65-95) mg/dL 11/20/20 11/20/20 11/20/20 Range/Units 05:07 05:45 05:45 WBC 11.7 H (4.5-11.0) K/mm3 RBC 2.74 L (3.65-5.03) M/mm3 Hgb 8.9 L (11.8-15.2) gm/dl Hct 26.3 L (35.5-45.6) % MCV 96 H (84-94) fl MCH 33 H (28-32) pg RDW 18.6 H (13.2-15.2) % ABG pH (7.320-7.450) POC ABG pO2 (83-108) mmHg ABG Hemoglobin (12.0-17.5) ABG Oxyhemoglobin (94-98) ABG Chloride (98-107) mmol/L ABG Glucose (65-95) mg/dL Carbon Dioxide 31 H (22-30) mmol/L Creatinine 0.4 L (0.8-1.3) mg/dL Glucose 127 H (75-100) mg/dL POC Glucose 129 H (70-105) mg/dL Calcium 8.0 L (8.4-10.2) mg/dL Arterial Blood Glucose (65-95) mg/dL
--- NOTE | 2020-11-20 16:33 | Progress Note ---
<KARIHALIE CarbajalMinnie - Last Filed: 11/20/20 16:31> Assessment and Plan Assessment and plan: -ID, cardiology, CCM, surgery, vascular surgery, nephrology, surgery, WOCN consulted, appreciate recommendations -FAZAL, pneumonia, infected sacral wound, acute respiratory failure, leukocytosis, hypotension requiring vasopressor support -Antibiotic therapy -Trend CBC and BMP -10/26 tracheal aspirate with MRSA, 10/26 blood cultures x2 with Proteus mirabilis, 10/27 urine culture possible contaminant, 11/15: Trach aspirate positive for staph coccus aureus, 11/06 occult stool positive -On mechanical ventilation, wean as tolerated, VAP bundle, CPAP trials as tolerated -Wound care per nursing -Sedated with fentanyl -Midodrine, norepinephrine as needed -Vancomycin -Amiodarone for rate control -S/p IVF resuscitation -HIT panel negative -Surgery consulted for trach/PEG placement (planned 11/21/2020); transfuse 1 unit PRBC on 11/18 per surgery request for goal hemoglobin greater than 8. -s/p 4 units PRBC during stay GI/DVT prophylaxis: Lovenox subq, SCDs to bilateral legs while in bed, PPI Dispo: ICU The high probability of a clinically significant, sudden or life threatening deterioration of the [pulmonary, cardiac] system(s) required my full and direct attention, intervention and personal management. The aggregate critical care time was [35] minutes. This time is in addition to time spent performing reported procedures but includes the following: [X] Data Review and interpretation [X] Patient assessment and monitoring of vital signs [X] Documentation [X] Medication orders and management History Interval history: This is a 75-year-old male who is a intermediate resident with seizure disorder, hypertension, depression, hyperlipidemia, hypoglycemia, dysphagia, and encepha lopathy who presents to the emergency department on 10/26 via EMS for tachypnea, dry mucous membranes and hypoxia. Patient was hypotensive, febrile to 103 degrees and hypoxic in the emergency department therefore he was intubated and central IV access was obtained. Patient received 3.5 L of IV fluid in the emergency department. Patient was admitted to the hospital service with consults to CCM, surgery, WOCN and ID for Sepsis, acute kidney injury, urinary tract infection, acute respiratory failure, electrolyte imbalances, infected sacral wound and bilateral pneumonia. Sepsis Acute respiratory failure with Hypoxia Cardiovascular shock Infected sacral wound s/p debridement with surgery Generalized anasarca possible acute diastolic congestive heart failure Anemia s/p 3 units prbc Bilateral pleural effusion Right and left lung atelectasis secondary to mucous plug Proteus bacteremia MRSA pneumonia Urine tract infection Acute kidney injury with vasomotor Nephropathy Acute Diarrhea ?C.diff- Test was not peformed Leukocytosis SFA occlusion - Not a candidate for surgery per Vascular SVT- Resolved Hyperchloremia Hypocalcemia Lactic acidosis 10/27: Patient received additional 4 L LR for fluid resuscitation and CV monitoring was initiated. Patient is on Levophed. ID added Flagyl to vanco mycin and cefepime. His trach aspirate grew staph coccus aureus. At the time my examination patient the fentanyl drip was held by RN and he was on 14 MCG of Levophed. This morning he was on assist control 450/20/6/.100. We will give additional bolus of fluids with goal CVP 10-12 and repeat labs in AM. Surgery was consulted to possible debridement. 10/28: Overnight it was noted that patient went into SVT and he was given adenosine 6 mg/12 mg / 12 mg once and was started on a Cardizem drip after no response to amnio bolus and cardiology was consulted. Currently patient remains on Levophed drip and is hypotensive and received additional 2 L of bolus for goal CVP of 10-12. Infectious disease changed cefepime/Flagyl to meropenem for GNR in his blood cultures 09/04 and will continue vancomycin. Patient currently was not well controlled on max Cardizem and cardiology initiated amiodarone. Patient still is very tachycardic. Patient is hypomagnesemic and we will replete his Mg and recheck level. We will give the patient additional to complete resolve LR this afternoon. Patient has a standing order per [facility] to bolus the patient with LR for CVP goal of 10-12. This morning he is hyperchl ormeic, metabolic acidotic (bicarb drip initiated) and his BUN/creatinine slightly elevated. Patient still remains lactic acidotic. 10/29: Patient's blood culture speciated to Proteus and his tracheal aspirate is MRSA. He is currently on ceftriaxone, Flagyl and vancomycin. Patient heart rate consistently is 110-150s and cardiology has given him an amiodarone bolus today and he remains on amiodarone drip. He looks much started on IV digoxin. This morning 4 L LR bolus was ordered and we will bolus an additional 4 L of LR this afternoon. Patient still has lactic acidosis, metabolic acidosis, leukocytosis and hyperchloremia. On examination this morning patient is more edematous and he remains on Levophed and amnio drip. 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 Remains on amio, levo and sedated with fentanyl. He is hypokalemic today which was repleted, h/h 02/18 and he is being type and crossed today with 2 units PRBC ordered to be transfused. Plt drop n oted, heparin discontinued and HIT ordered. Bicarb gtt discontinued. No acute events overnight. 10/31: Patient hypomagnesemia today which was repleted and cardiology has changed his IV amiodarone to p.o. Patient will get albumin per [facility]. At the time my examination patient is on assist control 450/20/6/0.40. 11/03: At the time my examination patient is on assist control 450/20/6/0.25 and sedated with fentanyl and on Levophed at 4.Patient's leukocytosis is improving he received Albumin this weekend. Patient is hypokalemic, hypomagnesemic, hypocalcemic today. We will repeat his electrolytes and recheck a BMP in the a.m. Patient received 2 units PRBC on 10/30 and his hemoglobin has been trending down. We will recheck in the a.m. 11/04: At the time of my examination patient was on Levophed 3 mcg and on VZV/CPAP 450/20/6/0.35. Patient still has leukocytosis, respiratory alkalosis, hyponatremia, hypochloremia, hypocalcemia. Today his magnesium and potassium repleted with bolus of potassium 4/magnesium 2. He received 60 mcg KCl p.o., 40 mEq of KCl IV and 2 g of magnesium sulfate. We will recheck BMP and mag and a.m. Surgery has deemed the patient to unstable for further debulking. We also consulted vascular surgery for PVD as patient has discoloration to BLE /feet. 4/7: Vascular surgery will obtain bilateral lower extremity arterial duplex to evaluate arterial flow and recommends adding as FWF to tube feedings in assisting to wean off of vasopressors. Patient has hypokalemia, hypophosphatemia and normal to low magnesium. Magnesium, potassium and phosphate have been repleted. Patient still remains on ventilator support but on CPAP trial this morning. Patient HIT is still pending. This morning at the time of my examination patient was on assist-control 450/20/6/0.35 and he tolerated CPAP trial for 4 hours yesterday. He was on Levophed 0.5 and his rectal tube output was noted at 1000 mL. 11/06: This morning patient was on a CPAP trial and became hypoxic with SPO2 into the 80s and was switched back to assist control. Patient's vent settings are assist control tidal and 450, rate 20, PEEP 6, FiO2 0.25. Today patient has leukocytosis, hypernatremia, hyperchloremia, hypocalcemia and hypophosphatemia. We will repeat a phosphate. His free water flushes have been increased and his magnesium has been repleted again. Patient has been started on Lovenox given improvement in his platelet count and on midodrine to help keep Levophed off. Infectious disease will continue p.o. vancomycin for total of 10 days. 11/07: Patient failed his CPAP trial yesterday and has been placed on CPAP 05/06 again this morning by RT. Overnight patient was rested on assist control tolerance by 50, rate of 20, pressure support 6 and FiO2 30%. His lab work is still pending for this morning. On repeat his phosphorus was 4.50 yesterday and repletion was discontinued. 11/08/2020; patient is off pressors currently on midodrine. Patient is on ceftriaxone and vancomycin. Patient is on assist control. Patient was evaluated by vascular surgery for peripheral vascular disease with SFA occlusion and recommend no intervention at this time. Prognosis is guarded. Patient is on 2 L of intranasal oxygen. We will put speech therapy evaluation. 11/09/2020; patient is currently off pressors and on midodrine. Continue with ceftriaxone, Flagyl and vancomycin per ID recommendation. Patient's blood culture grew Proteus mirabilis and tracheal aspirate grew MRSA. Patient was ev aluated by vascular surgery for PVD with SFA occlusion and recommend no intervention at this time. Patient is on 2 L of intranasal oxygen. Currently patient is on tube feeding and follow speech therapy evaluation. 11/10: Overnight noted to have increased RR, ? Awaiting speech eval considering patient still on Tube feeds. Continue to monitor Hypernatremia. Antibiotics today will be D12/14. Will continue discharge planning on discussion with CM. Patient nonrebreather. Possibly back on congestive heart failure will need appropriate diuresis. Transferred back to [facility]. Discussed with manual equipment mechanic and also with cardiology. 11/11: Remains lethargic remains in respiratory distress chest x-ray shows right lung collapse likely secondary to mucous plug. Discussed with manual equipment mechanic will likely undergo a bronchoscopy today. We will also continue to monitor as we did suggest possible pleural effusion which we think may be less likely but if that seems to be the case we will send patient for thoracentesis following the bronchoscopy. Continue to monitor hemoglobin continue to monitor diarrhea antibiotics management per infectious disease. I did speak and update patient's cousin yesterday. Patient still with edema will await cardiology reevaluation for possible further diuresis. 11/12: Patient for Bronchoscopy today. Continue supportive care 11/13: Patient Clinically improving, tolerated Bronchoscopy yesterday. Awaiting am labs today. Overnight had bradycardia. Continue weaning oxygen. Discussed with electrician elevator maintenance patient did have bronchial plug plus pleural effusion but will address. Will monitor serial x-rays. Discussed with nursing staff about my discussion with the brother. Continue supportive care. PER Brother,([phone] patient has had recurrent knee aspiration. Cardiology to re-evaluate today for Bradycardia noted overnight 11/14: Patient had a repeat bronchoscopy yesterday of the right lung due to mucous plug. Accordion Tuner did have a conversation with the cousin as one of the considerations may be a trach due to recurrent pulmonary mucous plug and also significant debility for patient's overall medical condition. And his inability to maintain his airway. We will start him on a low round of D5 until diet is established. We will continue to monitor clinical status this morning. Plan discussed with nursing staff patient and also with automation control integrator 11/15: Continues to show some improvement, will check CXR today. Wean oxygen as tolerated, will likely need Trach per pulmonary. WBC improving, will monitor Sodium level. Patient on dopamin. 11/16: Patient overnight required intubation due to worsening respiratory failure secondary to complete opacification of the right lung again. This has appeared to cleared up this morning following the intuabation. Cousin advised of the finding, he will try to get us all his records because he believes that the patient has had a trach done before but is not sure. Started on Pressors due to hypotension 11/17: Today general surgery was consulted for trach/PEG placement, patient grew staph and tracheal aspirate and his cefepime was stopped and [facility] ordered a trial dose of Lasix. At the time my examination patient was on 1 mcg of fentanyl and dopamine 5 mcg/kg per cardiology. He has hyperchloremia and his lab work and is anemic today at 6.6/20.2. Patient received 1 unit PRBC. We will obtain a CBC in the a.m. 11/18: No acute events reported overnight, patient was given Lasix again by [facility], surgery has requested transfusion of one 1 unit PRBC despite H/H being 7.4/23.4 and plans to do a tracheostomy and plans to perform PEG and trach placement on 11/21/2020. We will follow up BMP and CBC in the a.m. Coags ordered. 11/19: Patient's next of kin still Mr. Buckley's next of kin/POA is still undecided about trach/PEG, surgeon aware. [facility] has given the patient another dose of Lasix and he was noted to be in atrial fibrillation with RVR this morning. Cardiology is aware and they have opted to resume amiodarone drip for rate control. We will obtain a BMP in the a.m. 11/20: At the time of examination patient remains on amiodarone 0.05 mcg and fentanyl 1 mcg on assist control tidal volume 500, rate 20, PEEP 6, FiO2 of 40%. Patient will have Lasix dose again. Dr. Gupta updated the family today. Hospitalist Physical - Constitutional Vitals: Temp Pulse Resp BP Pulse Ox 98.7 F 101 H 20 123/68 96 11/20/20 16:00 11/20/20 15:00 11/20/20 15:00 11/20/20 15:00 11/20/20 15:00 General appearance: Present: no acute distress, other (Intubated, resting com fortably) - EENT Eyes: Present: PERRL, EOM intact ENT: hearing decreased - Neck Neck: Present: normal ROM - Respiratory Respiratory effort: normal Respiratory: bilateral: rhonchi - Cardiovascular Rhythm: regular Heart Sounds: Present: S1 & S2. Absent: systolic murmur, diastolic murmur - Extremities Extremities: no ischemia, pulses intact, pulses symmetrical, normal temperature, normal color Extremity abnormal: edema Peripheral Pulses: within normal limits - Abdominal General gastrointestinal: soft, non-tender, non-distended, normal bowel sounds - Integumentary Integumentary: Present: warm, dry - Psychiatric Psychiatric: cooperative - Neurologic Neurologic: CNII-XII intact, no focal deficits - Allied Health Allied health notes reviewed: nursing, RT, social work HEART Score - HEART Score EKG: Non-specific Age: > 65 Risk factors: > 3 risk factors or hx of atherosclerotic disease Troponin: Troponin T 0.123 ng/mL (0.00-0.029) H* 11/13/20 23:15 Troponin: < normal limit - Critical Actions Critical Actions: 4-6 pts:12-16.6% risk of adverse cardiac event. Should be admitted Results - Labs CBC & Chem 7: 11/20/20 05:45 11/20/20 05:45 Labs: Laboratory Last Values WBC 11.7 K/mm3 (4.5-11.0) H 11/20/20 05:45 RBC 2.74 M/mm3 (3.65-5.03) L 11/20/20 05:45 Hgb 8.9 gm/dl (11.8-15.2) L 11/20/20 05:45 Hct 26.3 % (35.5-45.6) L 11/20/20 05:45 MCV 96 fl (84-94) H 11/20/20 05:45 MCH 33 pg (28-32) H 11/20/20 05:45 MCHC 34 % (32-34) 11/20/20 05:45 RDW 18.6 % (13.2-15.2) H 11/20/20 05:45 Plt Count 342 K/mm3 (140-440) 11/20/20 05:45 Lymph % (Auto) 9.1 % (13.4-35.0) L 11/09/20 06:00 [place] % (Auto) 5.4 % (0.0-7.3) 11/09/20 06:00 Eos % (Auto) 0.3 % (0.0-4.3) 11/09/20 06:00 Baso % (Auto) 0.4 % (0.0-1.8) 11/09/20 06:00 Lymph # (Auto) 1.2 K/mm3 (1.2-5.4) 11/09/20 06:00 [place] # (Auto) 0.7 K/mm3 (0.0-0.8) 11/09/20 06:00 Eos # (Auto) 0.0 K/mm3 (0.0-0.4) 11/09/20 06:00 Baso # (Auto) 0.0 K/mm3 (0.0-0.1) 11/09/20 06:00 Add Manual Diff Complete 11/10/20 13:46 Total Counted 100 11/10/20 13:46 Seg Neutrophils % 84.8 % (40.0-70.0) H 11/09/20 06:00 Seg Neuts % (Manual) 90.0 % (40.0-70.0) H 11/10/20 13:46 Band Neutrophils % 17.0 % 10/27/20 03:30 Lymphocytes % (Manual) 3.0 % (13.4-35.0) L 11/10/20 13:46 Monocytes % (Manual) 7.0 % (0.0-7.3) 11/10/20 13:46 Eosinophils % (Manual) 2.0 % (0.0-4.3) 10/27/20 03:30 Metamyelocytes % 4.0 % 10/27/20 03:30 Nucleated RBC % Not Reportable 11/10/20 13:46 Seg Neutrophils # 11.1 K/mm3 (1.8-7.7) H 11/09/20 06:00 Seg Neutrophils # Man 14.5 K/mm3 (1.8-7.7) H 11/10/20 13:46 Band Neutrophils # 0.0 K/mm3 11/10/20 13:46 Lymphocytes # (Manual) 0.5 K/mm3 (1.2-5.4) L 11/10/20 13:46 Abs React Lymphs (Man) 0.0 K/mm3 11/10/20 13:46 Monocytes # (Manual) 1.1 K/mm3 (0.0-0.8) H 11/10/20 13:46 Eosinophils # (Manual) 0.0 K/mm3 (0.0-0.4) 11/10/20 13:46 Basophils # (Manual) 0.0 K/mm3 (0.0-0.1) 11/10/20 13:46 Metamyelocytes # 0.0 K/mm3 11/10/20 13:46 Myelocytes # 0.0 K/mm3 11/10/20 13:46 Promyelocytes # 0.0 K/mm3 11/10/20 13:46 Blast Cells # 0.0 K/mm3 11/10/20 13:46 WBC Morphology Not Reportable 11/10/20 13:46 Hypersegmented Neuts Not Reportable 11/10/20 13:46 Hyposegmented Neuts Not Reportable 11/10/20 13:46 Hypogranular Neuts Not Reportable 11/10/20 13:46 Smudge Cells Not Reportable 11/10/20 13:46 Toxic Granulation Not Reportable 11/10/20 13:46 Toxic Vacuolation Not Reportable 11/10/20 13:46 Dohle Bodies Not Reportable 11/10/20 13:46 Pelger-Huet Anomaly Not Reportable 11/10/20 13:46 Kassi Rods Not Reportable 11/10/20 13:46 Platelet Estimate Not Reportable 11/10/20 13:46 Clumped Platelets Not Reportable 11/10/20 13:46 Plt Clumps, EDTA Not Reportable 11/10/20 13:46 Large Platelets Not Reportable 11/10/20 13:46 Giant Platelets Not Reportable 11/10/20 13:46 Platelet Satelliting Not Reportable 11/10/20 13:46 Plt Morphology Comment Not Reportable 11/10/20 13:46 RBC Morphology Not Reportable 11/10/20 13:46 Dimorphic RBCs Yes 11/10/20 13:46 Polychromasia Not Reportable 11/10/20 13:46 Hypochromasia Not Reportable 11/10/20 13:46 Poikilocytosis Not Reportable 11/10/20 13:46 Anisocytosis Not Reportable 11/10/20 13:46 Microcytosis Rare 11/10/20 13:46 Macrocytosis Rare 11/10/20 13:46 Spherocytes Not Reportable 11/10/20 13:46 Pappenheimer Bodies Not Reportable 11/10/20 13:46 Sickle Cells Not Reportable 11/10/20 13:46 Target Cells Not Reportable 11/10/20 13:46 Tear Drop Cells Not Reportable 11/10/20 13:46 Ovalocytes Not Reportable 11/10/20 13:46 Helmet Cells Not Reportable 11/10/20 13:46 [employer] Bodies Not Reportable 11/10/20 13:46 [place] Rings Not Reportable 11/10/20 13:46 [place] Cells Not Reportable 11/10/20 13:46 Bite Cells Not Reportable 11/10/20 13:46 Crenated Cell Not Reportable 11/10/20 13:46 Elliptocytes Not Reportable 11/10/20 13:46 Acanthocytes (Spur) Not Reportable 11/10/20 13:46 Rouleaux Not Reportable 11/10/20 13:46 Hemoglobin C Crystals Not Reportable 11/10/20 13:46 Schistocytes Not Reportable 11/10/20 13:46 Malaria parasites Not Reportable 11/10/20 13:46 Richard Bodies Not Reportable 11/10/20 13:46 Hem Pathologist Commnt No 11/10/20 13:46 PT 14.7 Sec. (12.2-14.9) 11/19/20 06:36 INR 1.15 (0.87-1.13) H 11/19/20 06:36 APTT 27.9 Sec. (24.2-36.6) 10/26/20 17:25 Heparin Anti-Xa, Unfract Negative (Negative) 11/03/20 11:01 ABG pH 7.457 (7.320-7.450) H 11/20/20 04:56 POC ABG pCO2 42.9 mmHg (32.0-48.0) 11/20/20 04:56 ABG pCO2 43.4 mm Hg 11/19/20 Unknown POC ABG pO2 57.4 mmHg (83-108) L 11/20/20 04:56 ABG pO2 72.4 mm Hg (80.0-90.0) L 11/19/20 Unknown POC ABG HCO3 29.6 11/20/20 04:56 ABG HCO3 26.9 mmol/L (20.0-26.0) H 11/19/20 Unknown ABG O2 Saturation 91.2 (0-100) 11/20/20 04:56 ABG O2 Content 11.3 (0.0-44) 11/19/20 Unknown POC ABG Base Excess 5.2 11/20/20 04:56 ABG Base Excess 2.0 mmol/L (-2.0-3.0) 11/19/20 Unknown ABG Hemoglobin 9.6 (12.0-17.5) L 11/20/20 04:56 ABG Oxyhemoglobin 90.1 (94-98) L 11/20/20 04:56 ABG Carboxyhemoglobin 2.0 % (0.0-5.0) 11/19/20 Unknown ABG Methemoglobin 0.3 (0.0-1.5) 11/20/20 04:56 ABG Sodium 138.1 mmol/L (136.0-145.0) 11/20/20 04:56 ABG Potassium 4.2 mmol/L (3.40-4.50) 11/20/20 04:56 ABG Chloride 109.0 mmol/L (98-107) H 11/20/20 04:56 ABG Glucose 142 mg/dL (65-95) H 11/20/20 04:56 Oxyhemoglobin 94.1 % (95.0-99.0) L 11/19/20 Unknown Carboxyhemoglobin 0.9 (0.5-1.5) 11/20/20 04:56 FiO2 30 % 11/19/20 Unknown FiO2 % 30.0 11/20/20 04:56 Sodium 142 mmol/L (137-145) 11/20/20 05:45 Potassium 4.4 mmol/L (3.6-5.0) 11/20/20 05:45 Chloride 106.2 mmol/L (98-107) 11/20/20 05:45 Carbon Dioxide 31 mmol/L (22-30) H 11/20/20 05:45 Anion Gap 9 mmol/L 11/20/20 05:45 BUN 20 mg/dL (9-20) 11/20/20 05:45 Creatinine 0.4 mg/dL (0.8-1.3) L 11/20/20 05:45 Estimated GFR > 60 ml/min 11/20/20 05:45 BUN/Creatinine Ratio 50 % 11/20/20 05:45 Glucose 127 mg/dL (75-100) H 11/20/20 05:45 POC Glucose 129 mg/dL (70-105) H 11/20/20 05:07 Hemoglobin A1c 5.5 % (4-6) 10/27/20 04:42 Lactic Acid 4.30 mmol/L (0.7-2.0) H* 10/31/20 Unknown Calcium 8.0 mg/dL (8.4-10.2) L 11/20/20 05:45 Phosphorus 4.50 mg/dL (2.5-4.5) D 11/06/20 13:03 Magnesium 1.70 mg/dL (1.7-2.3) 11/19/20 06:36 Total Bilirubin < 0.20 mg/dL (0.1-1.2) 11/06/20 06:45 AST 23 units/L (5-40) 11/06/20 06:45 ALT 20 units/L (7-56) 11/06/20 06:45 Alkaline Phosphatase 117 units/L (35-129) 11/06/20 06:45 Total Creatine Kinase 31 units/L (55-170) L 10/26/20 17:28 Troponin T 0.123 ng/mL (0.00-0.029) H* 11/13/20 23:15 Total Protein 5.0 g/dL (6.3-8.2) L 11/06/20 06:45 Albumin 1.4 g/dL (3.9-5) L 11/06/20 06:45 Albumin/Globulin Ratio 0.4 % 11/06/20 06:45 Triglycerides 190 mg/dL (2-149) H 10/26/20 17:25 Cholesterol 92 mg/dL (50-199) 10/26/20 17:25 LDL Cholesterol Direct 33 mg/dL (50-130) L 10/26/20 17:25 HDL Cholesterol 18 mg/dL (40-59) L 10/26/20 17:25 Cholesterol/HDL Ratio 5.11 % 10/26/20 17:25 Serotonin Release Assay See scanned results 11/03/20 11:01 TSH 1.490 mlU/mL (0.270-4.200) 10/26/20 17:28 Arterial Blood Glucose 142 mg/dL (65-95) H 11/20/20 04:56 Arterial Blood Ionized Calcium 4.6 mg/dL (4.6-5.3) 11/20/20 04:56 Urine Color Yellow (Yellow) 10/27/20 Unknown Urine Turbidity Turbid (Clear) 10/27/20 Unknown Urine pH 8.0 (5.0-7.0) H 10/27/20 Unknown Ur Specific [place] 1.020 (1.003-1.030) 10/27/20 Unknown Urine Protein >500 mg/dL (Negative) 10/27/20 Unknown Urine Glucose (UA) Neg mg/dL (Negative) 10/27/20 Unknown Urine Ketones Neg mg/dL (Negative) 10/27/20 Unknown Urine Blood Sm (Negative) 10/27/20 Unknown Urine Nitrite Neg (Negative) 10/27/20 Unknown Urine Bilirubin Neg (Negative) 10/27/20 Unknown Urine Urobilinogen < 2.0 mg/dL (<2.0) 10/27/20 Unknown Ur Leukocyte Esterase Mod (Negative) 10/27/20 Unknown Urine WBC (Auto) > 182.0 /HPF (0.0-6.0) H 10/27/20 Unknown Urine RBC (Auto) 35.0 /HPF (0.0-6.0) 10/27/20 Unknown Urine WBC Clumps 3+ /HPF 10/27/20 Unknown Urine Mucus 3+ /HPF 10/27/20 Unknown Urine Yeast (Budding) 3+ /HPF 10/27/20 Unknown Vancomycin Trough 18.0 ug/mL (5.0-20.0) 11/19/20 09:06 Salicylates < 0.3 mg/dL (2.8-20.0) L 10/26/20 17:28 Acetaminophen 5.0 ug/mL (10.0-30.0) L 10/26/20 17:28 Heparin-induced Plt Ab Negative (Negative) 11/03/20 11:01 UF Heparin High Dose 0 % Release 11/03/20 11:01 MOISES UFH Low Dose 0.1 2 % Release 11/03/20 11:01 MOISES UFH Low Dose 0.5 0 % Release 11/03/20 11:01 Coronavirus (PCR) Negative (Negative) 10/27/20 Unknown Blood Type O POSITIVE 11/17/20 11:10 Antibody Screen Negative 11/17/20 11:10 Crossmatch See Detail 11/17/20 11:10 Microbiology: Microbiology 11/15/20 Unknown Tracheal Aspirate Sputum Culture - Final Methicillin Resist S. Aureus Rivas/IV: Voiding Method Indwelling Catheter Active Medications - Current Medications Current Medications: Generic Name Dose Route Start Last Admin Trade Name Freq PRN Reason Stop Dose Admin Acetaminophen 650 mg 10/26/20 22:22 11/13/20 14:36 Acetaminophen 325 Mg Tab PO 650 mg Q4H PRN Administration Pain MILD(1-3)/Fever >100.5/TIERNEY Albuterol 2.5 mg 11/11/20 14:00 11/20/20 13:08 Albuterol 2.5 Mg/3 Ml Nebu IH 2.5 mg TIDRT MARSHALL Administration Lipase/Protease/Amylase 1 each 10/28/20 13:18 Lipase 10,500/Protease 25,000/Amylase 43,750 (Units) Dr Cap FEEDTUBE PRN PRN For Clogged Feeding Tube Famotidine 20 mg 11/11/20 10:00 11/20/20 09:51 Famotidine 20 Mg Tab PO 20 mg BID MARSHALL Administration Fentanyl 50 mcg 11/15/20 22:30 11/19/20 09:51 Fentanyl 100 Mcg/2 Ml Inj IV 50 mcg Q10MIN PRN Administration ANALGESIA Hydrophilic Ointment 1 applic 11/15/20 22:30 Lip Therapy Vaseline TP Q2HR PRN Dry Lips Fentanyl Citrate 2,000 mcg in 100 mls @ 6.55 mls/hr 11/15/20 23:00 11/19/20 11:14 Fentanyl Drip Premix IV 1 mcg/kg/hr TITR MARSHALL 6.55 mls/hr Administration Protocol 1 MCG/KG/HR Norepinephrine 4 mg in 250 mls @ 7.5 mls/hr 11/15/20 23:45 11/17/20 01:37 Levophed Drip 4 Mg/Ns 250 Ml IV 0 mcg/min TITR MARSHALL 0 mls/hr Titration Protocol 2 MCG/MIN Vancomycin HCl 2,000 mg/ 540 mls @ 333 mls/hr 11/16/20 12:00 11/20/20 12:22 Sodium Chloride IV 11/23/20 13:38 333 mls/hr Q24H MARSHALL Administration Protocol Amiodarone HCl 900 mg/ 500 mls @ 33.333 mls/hr 11/19/20 13:00 11/20/20 12:23 Dextrose IV 0.5 mg/min DIRECT MARSHALL 16.667 mls/hr Administration Protocol 1 MG/MIN Midodrine 10 mg 11/06/20 12:00 11/20/20 12:21 Midodrine 5 Mg Tab PO 10 mg TID@0800,1200,1600 MARSHALL Administration Multi-Ingred Cream/Lotion/Oil/Oint 1 applic 11/15/20 22:30 Mineral Oil/Petrolatum, White Ophth Oint 3.5 Gm OU Q4HR PRN Dry Eye(s) Ondansetron HCl 4 mg 10/26/20 22:22 Ondansetron 4 Mg/2 Ml Inj IV Q8H PRN Nausea And Vomiting Simple Syrup 15 ml 10/28/20 13:18 11/10/20 16:01 Simple Syrup 15 Ml FEEDTUBE 15 ml PRN PRN Administration Hypoglycemia Simple Syrup 30 ml 10/28/20 13:18 Simple Syrup 15 Ml FEEDTUBE PRN PRN Hypoglycemia Sodium Bicarbonate 325 mg 10/28/20 13:18 Sodium Bicarbonate 325 Mg Tab FEEDTUBE PRN PRN For Clogged Feeding Tube Sodium Chloride 10 ml 10/27/20 10:00 11/19/20 09:12 Sodium Chloride 0.9% 10 Ml Flush Syringe IV 10 ml BID MARSHALL Administration Sodium Chloride 10 ml 10/26/20 22:22 Sodium Chloride 0.9% 10 Ml Flush Syringe IV PRN PRN LINE FLUSH Sodium Hypochlorite 1 applic 10/28/20 10:00 11/20/20 09:51 Sodium Hypochlorite, Dakin's 1/2 Strength (0.25%) 473 Ml Topical Soln TP 1 applicatio BID MARSHALL Administration Vancomycin HCl 125 mg 11/16/20 12:00 11/20/20 12:22 Vancomycin 250 Mg/10 Ml Oral Liqd PO 125 mg Q6HR MARSHALL Administration Protocol Nutrition/Malnutrition Assess - Dietary Evaluation Nutrition/Malnutrition Findings: Nutrition Notes Start: 10/27/20 09:15 Freq: Status: Active Protocol: Document 11/20/20 13:47 CW (Rec: 04/22/21 13:51 CW [id number]) Nutrition Notes Initial or Follow up Reassessment Current Diagnosis Acute Kidney Injury,Decubitus( Pressure Ulcer),Sepsis, Hypertension,Respiratory Failure,Hyperlipidemia Other Pertinent Diagnosis AMS, MRSA, Encephalopathy, Metabiloc Acidosis, pneu ,FTT Current Diet Promote at 80 ml/hr Labs/Tests reviewed Pertinent Medications Lasix Vancomycin Height 6 ft 2 in Weight 135 kg [place] Body Weight (kg) 86.36 BMI 38.2 Weight change and time frame wt change noted Weight Status Obese Subjective/Other Information F/U for tolerance. Pt remains on mechanical vent. TF running at goal and continue to be tolerated. Pt has had diarrhea likely r/t ABTx. Plan is for Pt to receive PEG and trach Percent of energy/protein needs met: 100%/90% Burn Absent Trauma Absent GI Symptoms Diarrhea Difficulty In Swallowing,Chewing Skin Integrity/Comment Multiple pressure ulcer,1 infected Current % PO Negligible Minimum of two criteria No Fluid Accumulation Moderate to Severe (severe) #2 Nutrition Diagnosis Increased nutrient needs ( specify in comment below) Diagnosis Progress(for reassessment Continues documentation) #1 Nutrition Diagnosis Inadequate oral intake Diagnosis Progress(for reassessment Continues documentation) Is patient on ventilator? Yes Is Patient Ambulatory and/or Out of Bed No REE-([facility] [place]-confined to bed) 2585.376 Kcal/Kg value to use for calculation 14 Approximate Energy Requirements Using 1890 kcal/Kg Calculation Used for Recommendations Kcal/kg Additional Notes protein needs: 133 - 167g(1.2 - 1.5 g/kgAdBW 111) Fluid needs 1 ml/kcal Nutrition Intervention Change Diet Order: Continue Nutrition Support: Promote at 80 ml/hr with a flush of 50 ml q4h Kcal 1,920 Protein (gm) 120 Fluid (mL) 1,611 Goal #1 TF tolerance Goal #2 Meet at least 75% EER and protein needs via TF Goal #3 wound healing Anticipated Discharge Needs: TF Follow-Up By: 11/26/20 Additional Comments F/U for stable TF <KAMRAN GUPTA R - Last Filed: 11/21/20 00:20> Assessment and Plan Assessment and plan: I saw and evaluated the patient. I agree with the findings and the plan of care as documented in the Nurse Practitioner's~note, with the following corrections and additions. Discussed with patient's POA at bedside plan for trach/PEG tomorrow Hospitalist Physical - Constitutional Vitals: Temp Pulse Resp BP Pulse Ox 98.2 F 95 H 21 104/62 92 11/20/20 20:00 11/20/20 22:30 11/20/20 22:30 11/20/20 22:30 11/20/20 22:30 HEART Score - HEART Score Troponin: Troponin T 0.123 ng/mL (0.00-0.029) H* 11/13/20 23:15 Results - Labs CBC & Chem 7: 11/20/20 05:45 11/20/20 05:45 Labs: Laboratory Last Values WBC 11.7 K/mm3 (4.5-11.0) H 11/20/20 05:45 RBC 2.74 M/mm3 (3.65-5.03) L 11/20/20 05:45 Hgb 8.9 gm/dl (11.8-15.2) L 11/20/20 05:45 Hct 26.3 % (35.5-45.6) L 11/20/20 05:45 MCV 96 fl (84-94) H 11/20/20 05:45 MCH 33 pg (28-32) H 11/20/20 05:45 MCHC 34 % (32-34) 11/20/20 05:45 RDW 18.6 % (13.2-15.2) H 11/20/20 05:45 Plt Count 342 K/mm3 (140-440) 11/20/20 05:45 Lymph % (Auto) 9.1 % (13.4-35.0) L 11/09/20 06:00 [place] % (Auto) 5.4 % (0.0-7.3) 11/09/20 06:00 Eos % (Auto) 0.3 % (0.0-4.3) 11/09/20 06:00 Baso % (Auto) 0.4 % (0.0-1.8) 11/09/20 06:00 Lymph # (Auto) 1.2 K/mm3 (1.2-5.4) 11/09/20 06:00 [place] # (Auto) 0.7 K/mm3 (0.0-0.8) 11/09/20 06:00 Eos # (Auto) 0.0 K/mm3 (0.0-0.4) 11/09/20 06:00 Baso # (Auto) 0.0 K/mm3 (0.0-0.1) 11/09/20 06:00 Add Manual Diff Complete 11/10/20 13:46 Total Counted 100 11/10/20 13:46 Seg Neutrophils % 84.8 % (40.0-70.0) H 11/09/20 06:00 Seg Neuts % (Manual) 90.0 % (40.0-70.0) H 11/10/20 13:46 Band Neutrophils % 17.0 % 10/27/20 03:30 Lymphocytes % (Manual) 3.0 % (13.4-35.0) L 11/10/20 13:46 Monocytes % (Manual) 7.0 % (0.0-7.3) 11/10/20 13:46 Eosinophils % (Manual) 2.0 % (0.0-4.3) 10/27/20 03:30 Metamyelocytes % 4.0 % 10/27/20 03:30 Nucleated RBC % Not Reportable 11/10/20 13:46 Seg Neutrophils # 11.1 K/mm3 (1.8-7.7) H 11/09/20 06:00 Seg Neutrophils # Man 14.5 K/mm3 (1.8-7.7) H 11/10/20 13:46 Band Neutrophils # 0.0 K/mm3 11/10/20 13:46 Lymphocytes # (Manual) 0.5 K/mm3 (1.2-5.4) L 11/10/20 13:46 Abs React Lymphs (Man) 0.0 K/mm3 11/10/20 13:46 Monocytes # (Manual) 1.1 K/mm3 (0.0-0.8) H 11/10/20 13:46 Eosinophils # (Manual) 0.0 K/mm3 (0.0-0.4) 11/10/20 13:46 Basophils # (Manual) 0.0 K/mm3 (0.0-0.1) 11/10/20 13:46 Metamyelocytes # 0.0 K/mm3 11/10/20 13:46 Myelocytes # 0.0 K/mm3 11/10/20 13:46 Promyelocytes # 0.0 K/mm3 11/10/20 13:46 Blast Cells # 0.0 K/mm3 11/10/20 13:46 WBC Morphology Not Reportable 11/10/20 13:46 Hypersegmented Neuts Not Reportable 11/10/20 13:46 Hyposegmented Neuts Not Reportable 11/10/20 13:46 Hypogranular Neuts Not Reportable 11/10/20 13:46 Smudge Cells Not Reportable 11/10/20 13:46 Toxic Granulation Not Reportable 11/10/20 13:46 Toxic Vacuolation Not Reportable 11/10/20 13:46 Dohle Bodies Not Reportable 11/10/20 13:46 Pelger-Huet Anomaly Not Reportable 11/10/20 13:46 Kassi Rods Not Reportable 11/10/20 13:46 Platelet Estimate Not Reportable 11/10/20 13:46 Clumped Platelets Not Reportable 11/10/20 13:46 Plt Clumps, EDTA Not Reportable 11/10/20 13:46 Large Platelets Not Reportable 11/10/20 13:46 Giant Platelets Not Reportable 11/10/20 13:46 Platelet Satelliting Not Reportable 11/10/20 13:46 Plt Morphology Comment Not Reportable 11/10/20 13:46 RBC Morphology Not Reportable 11/10/20 13:46 Dimorphic RBCs Yes 11/10/20 13:46 Polychromasia Not Reportable 11/10/20 13:46 Hypochromasia Not Reportable 11/10/20 13:46 Poikilocytosis Not Reportable 11/10/20 13:46 Anisocytosis Not Reportable 11/10/20 13:46 Microcytosis Rare 11/10/20 13:46 Macrocytosis Rare 11/10/20 13:46 Spherocytes Not Reportable 11/10/20 13:46 Pappenheimer Bodies Not Reportable 11/10/20 13:46 Sickle Cells Not Reportable 11/10/20 13:46 Target Cells Not Reportable 11/10/20 13:46 Tear Drop Cells Not Reportable 11/10/20 13:46 Ovalocytes Not Reportable 11/10/20 13:46 Helmet Cells Not Reportable 11/10/20 13:46 [employer] Bodies Not Reportable 11/10/20 13:46 [place] Rings Not Reportable 11/10/20 13:46 [place] Cells Not Reportable 11/10/20 13:46 Bite Cells Not Reportable 11/10/20 13:46 Crenated Cell Not Reportable 11/10/20 13:46 Elliptocytes Not Reportable 11/10/20 13:46 Acanthocytes (Spur) Not Reportable 11/10/20 13:46 Rouleaux Not Reportable 11/10/20 13:46 Hemoglobin C Crystals Not Reportable 11/10/20 13:46 Schistocytes Not Reportable 11/10/20 13:46 Malaria parasites Not Reportable 11/10/20 13:46 Richard Bodies Not Reportable 11/10/20 13:46 Hem Pathologist Commnt No 11/10/20 13:46 PT 14.7 Sec. (12.2-14.9) 11/19/20 06:36 INR 1.15 (0.87-1.13) H 11/19/20 06:36 APTT 27.9 Sec. (24.2-36.6) 10/26/20 17:25 Heparin Anti-Xa, Unfract Negative (Negative) 11/03/20 11:01 ABG pH 7.457 (7.320-7.450) H 11/20/20 04:56 POC ABG pCO2 42.9 mmHg (32.0-48.0) 11/20/20 04:56 ABG pCO2 43.4 mm Hg 11/19/20 Unknown POC ABG pO2 57.4 mmHg (83-108) L 11/20/20 04:56 ABG pO2 72.4 mm Hg (80.0-90.0) L 11/19/20 Unknown POC ABG HCO3 29.6 11/20/20 04:56 ABG HCO3 26.9 mmol/L (20.0-26.0) H 11/19/20 Unknown ABG O2 Saturation 91.2 (0-100) 11/20/20 04:56 ABG O2 Content 11.3 (0.0-44) 11/19/20 Unknown POC ABG Base Excess 5.2 11/20/20 04:56 ABG Base Excess 2.0 mmol/L (-2.0-3.0) 11/19/20 Unknown ABG Hemoglobin 9.6 (12.0-17.5) L 11/20/20 04:56 ABG Oxyhemoglobin 90.1 (94-98) L 11/20/20 04:56 ABG Carboxyhemoglobin 2.0 % (0.0-5.0) 11/19/20 Unknown ABG Methemoglobin 0.3 (0.0-1.5) 11/20/20 04:56 ABG Sodium 138.1 mmol/L (136.0-145.0) 11/20/20 04:56 ABG Potassium 4.2 mmol/L (3.40-4.50) 11/20/20 04:56 ABG Chloride 109.0 mmol/L (98-107) H 11/20/20 04:56 ABG Glucose 142 mg/dL (65-95) H 11/20/20 04:56 Oxyhemoglobin 94.1 % (95.0-99.0) L 11/19/20 Unknown Carboxyhemoglobin 0.9 (0.5-1.5) 11/20/20 04:56 FiO2 30 % 11/19/20 Unknown FiO2 % 30.0 11/20/20 04:56 Sodium 142 mmol/L (137-145) 11/20/20 05:45 Potassium 4.4 mmol/L (3.6-5.0) 11/20/20 05:45 Chloride 106.2 mmol/L (98-107) 11/20/20 05:45 Carbon Dioxide 31 mmol/L (22-30) H 11/20/20 05:45 Anion Gap 9 mmol/L 11/20/20 05:45 BUN 20 mg/dL (9-20) 11/20/20 05:45 Creatinine 0.4 mg/dL (0.8-1.3) L 11/20/20 05:45 Estimated GFR > 60 ml/min 11/20/20 05:45 BUN/Creatinine Ratio 50 % 11/20/20 05:45 Glucose 127 mg/dL (75-100) H 11/20/20 05:45 POC Glucose 115 mg/dL (70-105) H 11/20/20 17:52 Hemoglobin A1c 5.5 % (4-6) 10/27/20 04:42 Lactic Acid 4.30 mmol/L (0.7-2.0) H* 10/31/20 Unknown Calcium 8.0 mg/dL (8.4-10.2) L 11/20/20 05:45 Phosphorus 4.50 mg/dL (2.5-4.5) D 11/06/20 13:03 Magnesium 1.70 mg/dL (1.7-2.3) 11/19/20 06:36 Total Bilirubin < 0.20 mg/dL (0.1-1.2) 11/06/20 06:45 AST 23 units/L (5-40) 11/06/20 06:45 ALT 20 units/L (7-56) 11/06/20 06:45 Alkaline Phosphatase 117 units/L (35-129) 11/06/20 06:45 Total Creatine Kinase 31 units/L (55-170) L 10/26/20 17:28 Troponin T 0.123 ng/mL (0.00-0.029) H* 11/13/20 23:15 Total Protein 5.0 g/dL (6.3-8.2) L 11/06/20 06:45 Albumin 1.4 g/dL (3.9-5) L 11/06/20 06:45 Albumin/Globulin Ratio 0.4 % 11/06/20 06:45 Triglycerides 190 mg/dL (2-149) H 10/26/20 17:25 Cholesterol 92 mg/dL (50-199) 10/26/20 17:25 LDL Cholesterol Direct 33 mg/dL (50-130) L 10/26/20 17:25 HDL Cholesterol 18 mg/dL (40-59) L 10/26/20 17:25 Cholesterol/HDL Ratio 5.11 % 10/26/20 17:25 Serotonin Release Assay See scanned results 11/03/20 11:01 TSH 1.490 mlU/mL (0.270-4.200) 10/26/20 17:28 Arterial Blood Glucose 142 mg/dL (65-95) H 11/20/20 04:56 Arterial Blood Ionized Calcium 4.6 mg/dL (4.6-5.3) 11/20/20 04:56 Urine Color Yellow (Yellow) 10/27/20 Unknown Urine Turbidity Turbid (Clear) 10/27/20 Unknown Urine pH 8.0 (5.0-7.0) H 10/27/20 Unknown Ur Specific [place] 1.020 (1.003-1.030) 10/27/20 Unknown Urine Protein >500 mg/dL (Negative) 10/27/20 Unknown Urine Glucose (UA) Neg mg/dL (Negative) 10/27/20 Unknown Urine Ketones Neg mg/dL (Negative) 10/27/20 Unknown Urine Blood Sm (Negative) 10/27/20 Unknown Urine Nitrite Neg (Negative) 10/27/20 Unknown Urine Bilirubin Neg (Negative) 10/27/20 Unknown Urine Urobilinogen < 2.0 mg/dL (<2.0) 10/27/20 Unknown Ur Leukocyte Esterase Mod (Negative) 10/27/20 Unknown Urine WBC (Auto) > 182.0 /HPF (0.0-6.0) H 10/27/20 Unknown Urine RBC (Auto) 35.0 /HPF (0.0-6.0) 10/27/20 Unknown Urine WBC Clumps 3+ /HPF 10/27/20 Unknown Urine Mucus 3+ /HPF 10/27/20 Unknown Urine Yeast (Budding) 3+ /HPF 10/27/20 Unknown Vancomycin Trough 18.0 ug/mL (5.0-20.0) 11/19/20 09:06 Salicylates < 0.3 mg/dL (2.8-20.0) L 10/26/20 17:28 Acetaminophen 5.0 ug/mL (10.0-30.0) L 10/26/20 17:28 Heparin-induced Plt Ab Negative (Negative) 11/03/20 11:01 UF Heparin High Dose 0 % Release 11/03/20 11:01 MOISES UFH Low Dose 0.1 2 % Release 11/03/20 11:01 MOISES UFH Low Dose 0.5 0 % Release 11/03/20 11:01 Coronavirus (PCR) Negative (Negative) 10/27/20 Unknown Blood Type O POSITIVE 11/17/20 11:10 Antibody Screen Negative 11/17/20 11:10 Crossmatch See Detail 11/17/20 11:10 Rivas/IV: Voiding Method Indwelling Catheter Active Medications - Current Medications Current Medications: Generic Name Dose Route Start Last Admin Trade Name Freq PRN Reason Stop Dose Admin Acetaminophen 650 mg 10/26/20 22:22 11/13/20 14:36 Acetaminophen 325 Mg Tab PO 650 mg Q4H PRN Administration Pain MILD(1-3)/Fever >100.5/TIERNEY Albuterol 2.5 mg 11/11/20 14:00 11/20/20 20:46 Albuterol 2.5 Mg/3 Ml Nebu IH 2.5 mg TIDRT MARSHALL Administration Lipase/Protease/Amylase 1 each 10/28/20 13:18 Lipase 10,500/Protease 25,000/Amylase 43,750 (Units) Dr Cap FEEDTUBE PRN PRN For Clogged Feeding Tube Famotidine 20 mg 11/11/20 10:00 11/20/20 22:37 Famotidine 20 Mg Tab PO 20 mg BID MARSHALL Administration Fentanyl 50 mcg 11/15/20 22:30 11/19/20 09:51 Fentanyl 100 Mcg/2 Ml Inj IV 50 mcg Q10MIN PRN Administration ANALGESIA Hydrophilic Ointment 1 applic 11/15/20 22:30 Lip Therapy Vaseline TP Q2HR PRN Dry Lips Fentanyl Citrate 2,000 mcg in 100 mls @ 6.55 mls/hr 11/15/20 23:00 11/20/20 18:03 Fentanyl Drip Premix IV 1 mcg/kg/hr TITR MARSHALL 6.55 mls/hr Administration Protocol 1 MCG/KG/HR Norepinephrine 4 mg in 250 mls @ 7.5 mls/hr 11/15/20 23:45 11/17/20 01:37 Levophed Drip 4 Mg/Ns 250 Ml IV 0 mcg/min TITR MARSHALL 0 mls/hr Titration Protocol 2 MCG/MIN Vancomycin HCl 2,000 mg/ 540 mls @ 333 mls/hr 11/16/20 12:00 11/20/20 12:22 Sodium Chloride IV 11/23/20 13:38 333 mls/hr Q24H MARSHALL Administration Protocol Amiodarone HCl 900 mg/ 500 mls @ 33.333 mls/hr 11/19/20 13:00 11/20/20 12:23 Dextrose IV 0.5 mg/min DIRECT MARSHALL 16.667 mls/hr Administration Protocol 1 MG/MIN Midodrine 10 mg 11/06/20 12:00 11/20/20 18:03 Midodrine 5 Mg Tab PO 10 mg TID@0800,1200,1600 MARSHALL Administration Multi-Ingred Cream/Lotion/Oil/Oint 1 applic 11/15/20 22:30 Mineral Oil/Petrolatum, White Ophth Oint 3.5 Gm OU Q4HR PRN Dry Eye(s) Ondansetron HCl 4 mg 10/26/20 22:22 Ondansetron 4 Mg/2 Ml Inj IV Q8H PRN Nausea And Vomiting Simple Syrup 15 ml 10/28/20 13:18 11/10/20 16:01 Simple Syrup 15 Ml FEEDTUBE 15 ml PRN PRN Administration Hypoglycemia Simple Syrup 30 ml 10/28/20 13:18 Simple Syrup 15 Ml FEEDTUBE PRN PRN Hypoglycemia Sodium Bicarbonate 325 mg 10/28/20 13:18 Sodium Bicarbonate 325 Mg Tab FEEDTUBE PRN PRN For Clogged Feeding Tube Sodium Chloride 10 ml 10/27/20 10:00 11/19/20 09:12 Sodium Chloride 0.9% 10 Ml Flush Syringe IV 10 ml BID MARSHALL Administration Sodium Chloride 10 ml 10/26/20 22:22 Sodium Chloride 0.9% 10 Ml Flush Syringe IV PRN PRN LINE FLUSH Sodium Hypochlorite 1 applic 10/28/20 10:00 11/20/20 09:51 Sodium Hypochlorite, Dakin's 1/2 Strength (0.25%) 473 Ml Topical Soln TP 1 applicatio BID MARSHALL Administration Vancomycin HCl 125 mg 11/16/20 12:00 11/20/20 18:04 Vancomycin 250 Mg/10 Ml Oral Liqd PO 125 mg Q6HR MARSHALL Administration Protocol Nutrition/Malnutrition Assess - Dietary Evaluation Nutrition/Malnutrition Findings: Nutrition Notes Start: 10/27/20 09:15 Freq: Status: Active Protocol: Document 11/20/20 13:47 CW (Rec: 11/20/20 13:51 CW [id number]) Nutrition Notes Initial or Follow up Reassessment Current Diagnosis Acute Kidney Injury,Decubitus( Pressure Ulcer),Sepsis, Hypertension,Respiratory Failure,Hyperlipidemia Other Pertinent Diagnosis AMS, MRSA, Encephalopathy, Metabiloc Acidosis, pneu ,FTT Current Diet Promote at 80 ml/hr Labs/Tests reviewed Pertinent Medications Lasix Vancomycin Height 6 ft 2 in Weight 135 kg [place] Body Weight (kg) 86.36 BMI 38.2 Weight change and time frame wt change noted Weight Status Obese Subjective/Other Information F/U for tolerance. Pt remains on mechanical vent. TF running at goal and continue to be tolerated. Pt has had diarrhea likely r/t ABTx. Plan is for Pt to receive PEG and trach Percent of energy/protein needs met: 100%/90% Burn Absent Trauma Absent GI Symptoms Diarrhea Difficulty In Swallowing,Chewing Skin Integrity/Comment Multiple pressure ulcer,1 infected Current % PO Negligible Minimum of two criteria No Fluid Accumulation Moderate to Severe (severe) #2 Nutrition Diagnosis Increased nutrient needs ( specify in comment below) Diagnosis Progress(for reassessment Continues documentation) #1 Nutrition Diagnosis Inadequate oral intake Diagnosis Progress(for reassessment Continues documentation) Is patient on ventilator? Yes Is Patient Ambulatory and/or Out of Bed No REE-([facility]-confined to bed) 2585.376 Kcal/Kg value to use for calculation 14 Approximate Energy Requirements Using 1890 kcal/Kg Calculation Used for Recommendations Kcal/kg Additional Notes protein needs: 133 - 167g(1.2 - 1.5 g/kgAdBW 111) Fluid needs 1 ml/kcal Nutrition Intervention Change Diet Order: Continue Nutrition Support: Promote at 80 ml/hr with a flush of 50 ml q4h Kcal 1,920 Protein (gm) 120 Fluid (mL) 1,611 Goal #1 TF tolerance Goal #2 Meet at least 75% EER and protein needs via TF Goal #3 wound healing Anticipated Discharge Needs: TF Follow-Up By: 11/26/20 Additional Comments F/U for stable TF
[2020-11-20] MEDS: fentaNYL DRIP Premix 2,000 MCG/100 ML BAG IV SCH (18:03)
--- NOTE | 2020-11-21 05:22 | XRay Report ---
CHEST - 1 VIEW INDICATION: follow up respiratory failure COMPARISON: Yesterday FINDINGS: SUPPORT DEVICES: Stable support device positioning. HEART: Stable cardiomediastinal silhouette. LUNGS/PLEURA: Persistent mild patchy multifocal airspace opacities. ADDITIONAL FINDINGS: None. IMPRESSION: Unchanged exam. Signer Name: Prashanth Colindres MD Signed: 11/21/2020 5:18 AM Workstation Name: [id number]
[2020-11-21 06:32] LABS: Blood Urea Nitrogen 20 mg/dL (9-20); Calcium 7.9 mg/dL (8.4-10.2); Hemolysis Index 4
[2020-11-21] MEDS: VANCOMYCIN 250 MG/10 ML ORAL LIQD PO SCH ×4 (06:37→17:12)
[2020-11-21 07:47] LABS: BUN/Creatinine Ratio 50
[2020-11-21] MEDS: fentaNYL DRIP Premix 2,000 MCG/100 ML BAG IV SCH ×2 (07:47→23:15)
[2020-11-21] MEDS: MIDODRINE 5 MG TAB PO SCH ×3 (08:25→17:12)
[2020-11-21] MEDS: ALBUTEROL 2.5 MG/3 ML NEBU IH SCH ×3 (08:50→21:25)
[2020-11-21] MEDS: SODIUM HYPOCHLORITE, DAKIN'S 1/2 STRENGTH (0.25%) 473 ML TOPICAL SOLN TP SCH ×3 (09:00→22:30)
[2020-11-21] MEDS: FAMOTIDINE 20 MG TAB PO SCH ×2 (10:26→22:30)
--- NOTE | 2020-11-21 12:43 | Progress Note ---
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 Direct HDL Cholesterol Arterial Blood Glucose Arterial Blood Ionized Calcium Urine pH Urine WBC (Auto) Vancomycin Trough Salicylates Acetaminophen Crossmatch 10/30/20 10/30/20 10/30/20 09:30 11:40 17:51 WBC RBC Hgb Hct MCV MCH MCHC RDW Plt Count Lymph % (Auto) Seg Neutrophils % Seg Neuts % (Manual) Lymphocytes % (Manual) Nucleated RBC % Seg Neutrophils # Seg Neutrophils # Man Lymphocytes # (Manual) Monocytes # (Manual) PT INR ABG pH POC ABG pCO2 POC ABG pO2 ABG pO2 ABG HCO3 ABG O2 Saturation ABG Base Excess ABG Hemoglobin ABG Oxyhemoglobin ABG Sodium ABG Potassium ABG Chloride ABG Glucose Oxyhemoglobin Carboxyhemoglobin Sodium Potassium Chloride Carbon Dioxide BUN Creatinine Glucose POC Glucose 183 H 136 H Lactic Acid Calcium Phosphorus Magnesium Total Creatine Kinase Troponin T Total Protein Albumin Triglycerides LDL Cholesterol Direct HDL Cholesterol Arterial Blood Glucose Arterial Blood Ionized Calcium Urine pH Urine WBC (Auto) Vancomycin Trough Salicylates Acetaminophen Crossmatch See Detail 10/30/20 10/30/20 10/30/20 18:53 23:25 Unknown WBC RBC Hgb Hct MCV MCH MCHC RDW Plt Count Lymph % (Auto) Seg Neutrophils % Seg Neuts % (Manual) Lymphocytes % (Manual) Nucleated RBC % Seg Neutrophils # Seg Neutrophils # Man Lymphocytes # (Manual) Monocytes # (Manual) PT INR ABG pH POC ABG pCO2 POC ABG pO2 ABG pO2 ABG HCO3 ABG O2 Saturation ABG Base Excess ABG Hemoglobin ABG Oxyhemoglobin ABG Sodium ABG Potassium ABG Chloride ABG Glucose Oxyhemoglobin Carboxyhemoglobin Sodium Potassium Chloride Carbon Dioxide BUN Creatinine Glucose POC Glucose 130 H Lactic Acid Calcium Phosphorus Magnesium Total Creatine Kinase Troponin T Total Protein Albumin Triglycerides LDL Cholesterol Direct HDL Cholesterol Arterial Blood Glucose Arterial Blood Ionized Calcium Urine pH Urine WBC (Auto) Vancomycin Trough 21.4 H 22.0 H Salicylates Acetaminophen Crossmatch 10/30/20 10/31/20 10/31/20 Unknown 02:54 03:42 WBC 21.1 H 23.0 H RBC 2.36 L Hgb 7.3 L 11.4 L D Hct 22.7 L 34.1 L D MCV 96 H MCH MCHC RDW 17.1 H 16.2 H Plt Count 73 L 33 L Lymph % (Auto) Seg Neutrophils % Seg Neuts % (Manual) Lymphocytes % (Manual) Nucleated RBC % Seg Neutrophils # Seg Neutrophils # Man Lymphocytes # (Manual) Monocytes # (Manual) PT INR ABG pH 7.517 H POC ABG pCO2 25.7 L POC ABG pO2 52.3 L ABG pO2 ABG HCO3 ABG O2 Saturation ABG Base Excess ABG Hemoglobin ABG Oxyhemoglobin 90.8 L ABG Sodium ABG Potassium ABG Chloride 109.0 H ABG Glucose 147 H Oxyhemoglobin Carboxyhemoglobin Sodium Potassium Chloride Carbon Dioxide BUN Creatinine Glucose POC Glucose Lactic Acid Calcium Phosphorus Magnesium Total Creatine Kinase Troponin T Total Protein Albumin Triglycerides LDL Cholesterol Direct HDL Cholesterol Arterial Blood Glucose 147 H Arterial Blood Ionized Calcium 4.0 L Urine pH Urine WBC (Auto) Vancomycin Trough Salicylates Acetaminophen Crossmatch 10/31/20 10/31/20 10/31/20 04:37 04:37 05:08 WBC 21.7 H RBC Hgb Hct MCV MCH MCHC RDW 16.1 H Plt Count 39 L Lymph % (Auto) Seg Neutrophils % Seg Neuts % (Manual) Lymphocytes % (Manual) Nucleated RBC % Seg Neutrophils # Seg Neutrophils # Man Lymphocytes # (Manual) Monocytes # (Manual) PT INR ABG pH POC ABG pCO2 POC ABG pO2 ABG pO2 ABG HCO3 ABG O2 Saturation ABG Base Excess ABG Hemoglobin ABG Oxyhemoglobin ABG Sodium ABG Potassium ABG Chloride ABG Glucose Oxyhemoglobin Carboxyhemoglobin Sodium Potassium Chloride 108.4 H Carbon Dioxide BUN 25 H Creatinine 0.5 L Glucose 140 H POC Glucose 140 H Lactic Acid Calcium 6.1 L Phosphorus Magnesium 1.50 L Total Creatine Kinase Troponin T Total Protein Albumin Triglycerides LDL Cholesterol Direct HDL Cholesterol Arterial Blood Glucose Arterial Blood Ionized Calcium Urine pH Urine WBC (Auto) Vancomycin Trough Salicylates Acetaminophen Crossmatch 10/31/20 10/31/20 10/31/20 11:12 18:50 23:21 WBC RBC Hgb Hct MCV MCH MCHC RDW Plt Count Lymph % (Auto) Seg Neutrophils % Seg Neuts % (Manual) Lymphocytes % (Manual) Nucleated RBC % Seg Neutrophils # Seg Neutrophils # Man Lymphocytes # (Manual) Monocytes # (Manual) PT INR ABG pH POC ABG pCO2 POC ABG pO2 ABG pO2 ABG HCO3 ABG O2 Saturation ABG Base Excess ABG Hemoglobin ABG Oxyhemoglobin ABG Sodium ABG Potassium ABG Chloride ABG Glucose Oxyhemoglobin Carboxyhemoglobin Sodium Potassium Chloride Carbon Dioxide BUN Creatinine Glucose POC Glucose 125 H 142 H 127 H Lactic Acid Calcium Phosphorus Magnesium Total Creatine Kinase Troponin T Total Protein Albumin Triglycerides LDL Cholesterol Direct HDL Cholesterol Arterial Blood Glucose Arterial Blood Ionized Calcium Urine pH Urine WBC (Auto) Vancomycin Trough Salicylates Acetaminophen Crossmatch 10/31/20 11/01/20 11/01/20 Unknown 03:40 04:21 WBC RBC Hgb Hct MCV MCH MCHC RDW Plt Count Lymph % (Auto) Seg Neutrophils % Seg Neuts % (Manual) Lymphocytes % (Manual) Nucleated RBC % Seg Neutrophils # Seg Neutrophils # Man Lymphocytes # (Manual) Monocytes # (Manual) PT INR ABG pH 7.489 H POC ABG pCO2 POC ABG pO2 ABG pO2 77.2 L ABG HCO3 ABG O2 Saturation ABG Base Excess ABG Hemoglobin 7.1 L ABG Oxyhemoglobin ABG Sodium ABG Potassium ABG Chloride ABG Glucose Oxyhemoglobin Carboxyhemoglobin Sodium Potassium 3.1 L Chloride 107.1 H Carbon Dioxide BUN 25 H Creatinine 0.5 L Glucose 148 H POC Glucose Lactic Acid 4.30 H* Calcium 6.0 L Phosphorus Magnesium Total Creatine Kinase Troponin T Total Protein Albumin Triglycerides LDL Cholesterol Direct HDL Cholesterol Arterial Blood Glucose Arterial Blood Ionized Calcium Urine pH Urine WBC (Auto) Vancomycin Trough Salicylates Acetaminophen Crossmatch 11/01/20 11/01/20 11/01/20 05:13 11:42 17:38 WBC RBC Hgb Hct MCV MCH MCHC RDW Plt Count Lymph % (Auto) Seg Neutrophils % Seg Neuts % (Manual) Lymphocytes % (Manual) Nucleated RBC % Seg Neutrophils # Seg Neutrophils # Man Lymphocytes # (Manual) Monocytes # (Manual) PT INR ABG pH POC ABG pCO2 POC ABG pO2 ABG pO2 ABG HCO3 ABG O2 Saturation ABG Base Excess ABG Hemoglobin ABG Oxyhemoglobin ABG Sodium ABG Potassium ABG Chloride ABG Glucose Oxyhemoglobin Carboxyhemoglobin Sodium Potassium Chloride Carbon Dioxide BUN Creatinine Glucose POC Glucose 139 H 139 H 161 H Lactic Acid Calcium Phosphorus Magnesium Total Creatine Kinase Troponin T Total Protein Albumin Triglycerides LDL Cholesterol Direct HDL Cholesterol Arterial Blood Glucose Arterial Blood Ionized Calcium Urine pH Urine WBC (Auto) Vancomycin Trough Salicylates Acetaminophen Crossmatch 11/01/20 11/01/20 11/02/20 23:20 Unknown 04:30 WBC 18.2 H RBC 3.27 L Hgb 9.9 L Hct 30.1 L D MCV MCH MCHC RDW 15.7 H Plt Count 34 L Lymph % (Auto) Seg Neutrophils % Seg Neuts % (Manual) Lymphocytes % (Manual) Nucleated RBC % Seg Neutrophils # Seg Neutrophils # Man Lymphocytes # (Manual) Monocytes # (Manual) PT INR ABG pH 7.456 H POC ABG pCO2 POC ABG pO2 ABG pO2 ABG HCO3 ABG O2 Saturation ABG Base Excess ABG Hemoglobin 9.2 L ABG Oxyhemoglobin ABG Sodium ABG Potassium ABG Chloride ABG Glucose Oxyhemoglobin Carboxyhemoglobin Sodium Potassium Chloride Carbon Dioxide BUN Creatinine Glucose POC Glucose 168 H Lactic Acid Calcium Phosphorus Magnesium Total Creatine Kinase Troponin T Total Protein Albumin Triglycerides LDL Cholesterol Direct HDL Cholesterol Arterial Blood Glucose Arterial Blood Ionized Calcium Urine pH Urine WBC (Auto) Vancomycin Trough Salicylates Acetaminophen Crossmatch 11/02/20 11/02/20 11/02/20 06:29 08:40 08:40 WBC 16.6 H RBC 2.87 L Hgb 8.8 L Hct 26.6 L MCV MCH MCHC RDW 15.8 H Plt Count 30 L Lymph % (Auto) Seg Neutrophils % Seg Neuts % (Manual) 97.0 H Lymphocytes % (Manual) 2.0 L Nucleated RBC % 1.0 H Seg Neutrophils # Seg Neutrophils # Man 16.1 H Lymphocytes # (Manual) 0.3 L Monocytes # (Manual) PT INR ABG pH POC ABG pCO2 POC ABG pO2 ABG pO2 ABG HCO3 ABG O2 Saturation ABG Base Excess ABG Hemoglobin ABG Oxyhemoglobin ABG Sodium ABG Potassium ABG Chloride ABG Glucose Oxyhemoglobin Carboxyhemoglobin Sodium Potassium 2.4 L* D Chloride 110.2 H Carbon Dioxide BUN 23 H Creatinine 0.4 L Glucose 154 H POC Glucose 131 H Lactic Acid Calcium 6.1 L Phosphorus Magnesium 1.50 L Total Creatine Kinase Troponin T Total Protein Albumin Triglycerides LDL Cholesterol Direct HDL Cholesterol Arterial Blood Glucose Arterial Blood Ionized Calcium Urine pH Urine WBC (Auto) Vancomycin Trough Salicylates Acetaminophen Crossmatch 11/02/20 11/02/20 11/02/20 13:17 17:25 18:05 WBC RBC Hgb Hct MCV MCH MCHC RDW Plt Count Lymph % (Auto) Seg Neutrophils % Seg Neuts % (Manual) Lymphocytes % (Manual) Nucleated RBC % Seg Neutrophils # Seg Neutrophils # Man Lymphocytes # (Manual) Monocytes # (Manual) PT INR ABG pH POC ABG pCO2 POC ABG pO2 ABG pO2 ABG HCO3 ABG O2 Saturation ABG Base Excess ABG Hemoglobin ABG Oxyhemoglobin ABG Sodium ABG Potassium ABG Chloride ABG Glucose Oxyhemoglobin Carboxyhemoglobin Sodium Potassium 3.1 L D Chloride Carbon Dioxide BUN Creatinine Glucose POC Glucose 134 H 140 H Lactic Acid Calcium Phosphorus Magnesium Total Creatine Kinase Troponin T Total Protein Albumin Triglycerides LDL Cholesterol Direct HDL Cholesterol Arterial Blood Glucose Arterial Blood Ionized Calcium Urine pH Urine WBC (Auto) Vancomycin Trough Salicylates Acetaminophen Crossmatch 11/02/20 11/03/20 11/03/20 23:36 04:15 05:07 WBC RBC Hgb Hct MCV MCH MCHC RDW Plt Count Lymph % (Auto) Seg Neutrophils % Seg Neuts % (Manual) Lymphocytes % (Manual) Nucleated RBC % Seg Neutrophils # Seg Neutrophils # Man Lymphocytes # (Manual) Monocytes # (Manual) PT INR ABG pH POC ABG pCO2 POC ABG pO2 ABG pO2 ABG HCO3 ABG O2 Saturation ABG Base Excess ABG Hemoglobin ABG Oxyhemoglobin ABG Sodium ABG Potassium ABG Chloride ABG Glucose Oxyhemoglobin Carboxyhemoglobin Sodium Potassium 3.0 L Chloride 111.8 H Carbon Dioxide BUN 24 H Creatinine 0.3 L Glucose 141 H POC Glucose 127 H 156 H Lactic Acid Calcium 5.8 L* Phosphorus Magnesium 1.60 L Total Creatine Kinase Troponin T Total Protein Albumin Triglycerides LDL Cholesterol Direct HDL Cholesterol Arterial Blood Glucose Arterial Blood Ionized Calcium Urine pH Urine WBC (Auto) Vancomycin Trough Salicylates Acetaminophen Crossmatch 11/03/20 11/03/20 11/04/20 11:14 17:31 00:17 WBC RBC Hgb Hct MCV MCH MCHC RDW Plt Count Lymph % (Auto) Seg Neutrophils % Seg Neuts % (Manual) Lymphocytes % (Manual) Nucleated RBC % Seg Neutrophils # Seg Neutrophils # Man Lymphocytes # (Manual) Monocytes # (Manual) PT INR ABG pH POC ABG pCO2 POC ABG pO2 ABG pO2 ABG HCO3 ABG O2 Saturation ABG Base Excess ABG Hemoglobin ABG Oxyhemoglobin ABG Sodium ABG Potassium ABG Chloride ABG Glucose Oxyhemoglobin Carboxyhemoglobin Sodium Potassium Chloride Carbon Dioxide BUN Creatinine Glucose POC Glucose 137 H 151 H 156 H Lactic Acid Calcium Phosphorus Magnesium Total Creatine Kinase Troponin T Total Protein Albumin Triglycerides LDL Cholesterol Direct HDL Cholesterol Arterial Blood Glucose Arterial Blood Ionized Calcium Urine pH Urine WBC (Auto) Vancomycin Trough Salicylates Acetaminophen Crossmatch 11/04/20 11/04/20 11/04/20 05:34 05:34 11:16 WBC 21.9 H RBC 2.67 L Hgb 8.2 L Hct 24.8 L MCV MCH MCHC RDW 15.6 H Plt Count 48 L Lymph % (Auto) Seg Neutrophils % Seg Neuts % (Manual) Lymphocytes % (Manual) Nucleated RBC % Seg Neutrophils # Seg Neutrophils # Man Lymphocytes # (Manual) Monocytes # (Manual) PT INR ABG pH POC ABG pCO2 POC ABG pO2 ABG pO2 ABG HCO3 ABG O2 Saturation ABG Base Excess ABG Hemoglobin ABG Oxyhemoglobin ABG Sodium ABG Potassium ABG Chloride ABG Glucose Oxyhemoglobin Carboxyhemoglobin Sodium 146 H Potassium Chloride 114.6 H Carbon Dioxide BUN 29 H Creatinine 0.3 L Glucose 173 H POC Glucose 156 H Lactic Acid Calcium 5.7 L* Phosphorus Magnesium Total Creatine Kinase Troponin T Total Protein Albumin Triglycerides LDL Cholesterol Direct HDL Cholesterol Arterial Blood Glucose Arterial Blood Ionized Calcium Urine pH Urine WBC (Auto) Vancomycin Trough Salicylates Acetaminophen Crossmatch 11/04/20 11/04/20 11/04/20 11:42 17:18 23:12 WBC RBC Hgb Hct MCV MCH MCHC RDW Plt Count Lymph % (Auto) Seg Neutrophils % Seg Neuts % (Manual) Lymphocytes % (Manual) Nucleated RBC % Seg Neutrophils # Seg Neutrophils # Man Lymphocytes # (Manual) Monocytes # (Manual) PT INR ABG pH 7.525 H POC ABG pCO2 28.9 L POC ABG pO2 64.3 L ABG pO2 ABG HCO3 ABG O2 Saturation ABG Base Excess ABG Hemoglobin 8.2 L ABG Oxyhemoglobin ABG Sodium ABG Potassium 3.3 L ABG Chloride 115.0 H ABG Glucose 165 H Oxyhemoglobin Carboxyhemoglobin Sodium Potassium Chloride Carbon Dioxide BUN Creatinine Glucose POC Glucose 144 H 155 H Lactic Acid Calcium Phosphorus Magnesium Total Creatine Kinase Troponin T Total Protein Albumin Triglycerides LDL Cholesterol Direct HDL Cholesterol Arterial Blood Glucose 165 H Arterial Blood Ionized Calcium 4.0 L Urine pH Urine WBC (Auto) Vancomycin Trough Salicylates Acetaminophen Crossmatch 11/05/20 11/05/20 11/05/20 04:48 04:48 05:57 WBC 17.4 H RBC 2.49 L Hgb 7.8 L Hct 23.5 L MCV MCH MCHC RDW 16.0 H Plt Count 69 L Lymph % (Auto) Seg Neutrophils % Seg Neuts % (Manual) Lymphocytes % (Manual) Nucleated RBC % Seg Neutrophils # Seg Neutrophils # Man Lymphocytes # (Manual) Monocytes # (Manual) PT INR ABG pH POC ABG pCO2 POC ABG pO2 ABG pO2 ABG HCO3 ABG O2 Saturation ABG Base Excess ABG Hemoglobin ABG Oxyhemoglobin ABG Sodium ABG Potassium ABG Chloride ABG Glucose Oxyhemoglobin Carboxyhemoglobin Sodium 147 H Potassium 3.5 L Chloride 115.4 H Carbon Dioxide BUN 34 H Creatinine 0.3 L Glucose 154 H POC Glucose 146 H Lactic Acid Calcium 6.1 L Phosphorus 2.00 L Magnesium Total Creatine Kinase Troponin T Total Protein Albumin Triglycerides LDL Cholesterol Direct HDL Cholesterol Arterial Blood Glucose Arterial Blood Ionized Calcium Urine pH Urine WBC (Auto) Vancomycin Trough Salicylates Acetaminophen Crossmatch 11/05/20 11/05/20 11/05/20 11:33 17:52 23:37 WBC RBC Hgb Hct MCV MCH MCHC RDW Plt Count Lymph % (Auto) Seg Neutrophils % Seg Neuts % (Manual) Lymphocytes % (Manual) Nucleated RBC % Seg Neutrophils # Seg Neutrophils # Man Lymphocytes # (Manual) Monocytes # (Manual) PT INR ABG pH POC ABG pCO2 POC ABG pO2 ABG pO2 ABG HCO3 ABG O2 Saturation ABG Base Excess ABG Hemoglobin ABG Oxyhemoglobin ABG Sodium ABG Potassium ABG Chloride ABG Glucose Oxyhemoglobin Carboxyhemoglobin Sodium Potassium Chloride Carbon Dioxide BUN Creatinine Glucose POC Glucose 144 H 136 H 151 H Lactic Acid Calcium Phosphorus Magnesium Total Creatine Kinase Troponin T Total Protein Albumin Triglycerides LDL Cholesterol Direct HDL Cholesterol Arterial Blood Glucose Arterial Blood Ionized Calcium Urine pH Urine WBC (Auto) Vancomycin Trough Salicylates Acetaminophen Crossmatch 11/06/20 11/06/20 11/06/20 05:36 06:45 06:45 WBC 15.0 H RBC 2.33 L Hgb 7.2 L Hct 22.1 L MCV 95 H MCH MCHC RDW 16.2 H Plt Count 103 L Lymph % (Auto) Seg Neutrophils % Seg Neuts % (Manual) Lymphocytes % (Manual) Nucleated RBC % Seg Neutrophils # Seg Neutrophils # Man Lymphocytes # (Manual) Monocytes # (Manual) PT INR ABG pH POC ABG pCO2 POC ABG pO2 ABG pO2 ABG HCO3 ABG O2 Saturation ABG Base Excess ABG Hemoglobin ABG Oxyhemoglobin ABG Sodium ABG Potassium ABG Chloride ABG Glucose Oxyhemoglobin Carboxyhemoglobin Sodium 148 H Potassium Chloride 118.2 H Carbon Dioxide BUN 32 H Creatinine 0.4 L Glucose 153 H POC Glucose 140 H Lactic Acid Calcium 6.4 L Phosphorus 0.90 L* D Magnesium Total Creatine Kinase Troponin T Total Protein 5.0 L Albumin 1.4 L Triglycerides LDL Cholesterol Direct HDL Cholesterol Arterial Blood Glucose Arterial Blood Ionized Calcium Urine pH Urine WBC (Auto) Vancomycin Trough Salicylates Acetaminophen Crossmatch 11/06/20 11/06/20 11/06/20 11:32 17:37 23:19 WBC RBC Hgb Hct MCV MCH MCHC RDW Plt Count Lymph % (Auto) Seg Neutrophils % Seg Neuts % (Manual) Lymphocytes % (Manual) Nucleated RBC % Seg Neutrophils # Seg Neutrophils # Man Lymphocytes # (Manual) Monocytes # (Manual) PT INR ABG pH POC ABG pCO2 POC ABG pO2 ABG pO2 ABG HCO3 ABG O2 Saturation ABG Base Excess ABG Hemoglobin ABG Oxyhemoglobin ABG Sodium ABG Potassium ABG Chloride ABG Glucose Oxyhemoglobin Carboxyhemoglobin Sodium Potassium Chloride Carbon Dioxide BUN Creatinine Glucose POC Glucose 132 H 133 H 145 H Lactic Acid Calcium Phosphorus Magnesium Total Creatine Kinase Troponin T Total Protein Albumin Triglycerides LDL Cholesterol Direct HDL Cholesterol Arterial Blood Glucose Arterial Blood Ionized Calcium Urine pH Urine WBC (Auto) Vancomycin Trough Salicylates Acetaminophen Crossmatch 11/07/20 11/07/20 11/07/20 12:55 16:45 16:45 WBC 12.0 H RBC 3.63 L Hgb 11.4 L D Hct MCV 104 H MCH MCHC 30 L RDW 18.0 H Plt Count 133 L Lymph % (Auto) Seg Neutrophils % Seg Neuts % (Manual) Lymphocytes % (Manual) Nucleated RBC % Seg Neutrophils # Seg Neutrophils # Man Lymphocytes # (Manual) Monocytes # (Manual) PT INR ABG pH POC ABG pCO2 POC ABG pO2 ABG pO2 ABG HCO3 ABG O2 Saturation ABG Base Excess ABG Hemoglobin 7.7 L ABG Oxyhemoglobin ABG Sodium ABG Potassium ABG Chloride ABG Glucose Oxyhemoglobin 94.9 L Carboxyhemoglobin Sodium 149 H Potassium Chloride 119.8 H Carbon Dioxide BUN 31 H Creatinine 0.4 L Glucose 130 H POC Glucose Lactic Acid Calcium 6.5 L Phosphorus Magnesium Total Creatine Kinase Troponin T Total Protein Albumin Triglycerides LDL Cholesterol Direct HDL Cholesterol Arterial Blood Glucose Arterial Blood Ionized Calcium Urine pH Urine WBC (Auto) Vancomycin Trough Salicylates Acetaminophen Crossmatch 11/07/20 11/08/20 11/08/20 17:23 00:12 06:11 WBC RBC Hgb Hct MCV MCH MCHC RDW Plt Count Lymph % (Auto) Seg Neutrophils % Seg Neuts % (Manual) Lymphocytes % (Manual) Nucleated RBC % Seg Neutrophils # Seg Neutrophils # Man Lymphocytes # (Manual) Monocytes # (Manual) PT INR ABG pH POC ABG pCO2 POC ABG pO2 ABG pO2 ABG HCO3 ABG O2 Saturation ABG Base Excess ABG Hemoglobin ABG Oxyhemoglobin ABG Sodium ABG Potassium ABG Chloride ABG Glucose Oxyhemoglobin Carboxyhemoglobin Sodium Potassium Chloride Carbon Dioxide BUN Creatinine Glucose POC Glucose 115 H 129 H 109 H Lactic Acid Calcium Phosphorus Magnesium Total Creatine Kinase Troponin T Total Protein Albumin Triglycerides LDL Cholesterol Direct HDL Cholesterol Arterial Blood Glucose Arterial Blood Ionized Calcium Urine pH Urine WBC (Auto) Vancomycin Trough Salicylates Acetaminophen Crossmatch 11/08/20 11/08/20 11/08/20 17:36 23:49 23:58 WBC RBC Hgb Hct MCV MCH MCHC RDW Plt Count Lymph % (Auto) Seg Neutrophils % Seg Neuts % (Manual) Lymphocytes % (Manual) Nucleated RBC % Seg Neutrophils # Seg Neutrophils # Man Lymphocytes # (Manual) Monocytes # (Manual) PT INR ABG pH POC ABG pCO2 POC ABG pO2 ABG pO2 ABG HCO3 ABG O2 Saturation ABG Base Excess ABG Hemoglobin ABG Oxyhemoglobin ABG Sodium ABG Potassium ABG Chloride ABG Glucose Oxyhemoglobin Carboxyhemoglobin Sodium Potassium Chloride Carbon Dioxide BUN Creatinine Glucose 138 H POC Glucose 38 L 36 L Lactic Acid Calcium Phosphorus Magnesium Total Creatine Kinase Troponin T Total Protein Albumin Triglycerides LDL Cholesterol Direct HDL Cholesterol Arterial Blood Glucose Arterial Blood Ionized Calcium Urine pH Urine WBC (Auto) Vancomycin Trough Salicylates Acetaminophen Crossmatch 11/09/20 11/09/20 11/09/20 05:33 06:00 06:00 WBC 13.1 H RBC 2.35 L Hgb 7.6 L D Hct 22.9 L D MCV 97 H MCH MCHC RDW 16.8 H Plt Count Lymph % (Auto) 9.1 L Seg Neutrophils % 84.8 H Seg Neuts % (Manual) Lymphocytes % (Manual) Nucleated RBC % Seg Neutrophils # 11.1 H Seg Neutrophils # Man Lymphocytes # (Manual) Monocytes # (Manual) PT INR ABG pH POC ABG pCO2 POC ABG pO2 ABG pO2 ABG HCO3 ABG O2 Saturation ABG Base Excess ABG Hemoglobin ABG Oxyhemoglobin ABG Sodium ABG Potassium ABG Chloride ABG Glucose Oxyhemoglobin Carboxyhemoglobin Sodium 150 H Potassium 3.4 L D Chloride 119.2 H Carbon Dioxide BUN 30 H Creatinine 0.4 L Glucose 137 H POC Glucose 58 L Lactic Acid Calcium 7.2 L Phosphorus Magnesium Total Creatine Kinase Troponin T Total Protein Albumin Triglycerides LDL Cholesterol Direct HDL Cholesterol Arterial Blood Glucose Arterial Blood Ionized Calcium Urine pH Urine WBC (Auto) Vancomycin Trough Salicylates Acetaminophen Crossmatch 11/09/20 11/09/20 11/10/20 06:08 22:16 13:46 WBC 16.1 H RBC 2.52 L Hgb 8.1 L Hct 25.2 L MCV 100 H MCH MCHC RDW 18.2 H Plt Count Lymph % (Auto) Seg Neutrophils % Seg Neuts % (Manual) 90.0 H Lymphocytes % (Manual) 3.0 L Nucleated RBC % Seg Neutrophils # Seg Neutrophils # Man 14.5 H Lymphocytes # (Manual) 0.5 L Monocytes # (Manual) 1.1 H PT INR ABG pH POC ABG pCO2 POC ABG pO2 ABG pO2 ABG HCO3 ABG O2 Saturation ABG Base Excess ABG Hemoglobin ABG Oxyhemoglobin ABG Sodium ABG Potassium ABG Chloride ABG Glucose Oxyhemoglobin Carboxyhemoglobin Sodium Potassium Chloride Carbon Dioxide BUN Creatinine Glucose POC Glucose 122 H 120 H Lactic Acid Calcium Phosphorus Magnesium Total Creatine Kinase Troponin T Total Protein Albumin Triglycerides LDL Cholesterol Direct HDL Cholesterol Arterial Blood Glucose Arterial Blood Ionized Calcium Urine pH Urine WBC (Auto) Vancomycin Trough Salicylates Acetaminophen Crossmatch 11/10/20 11/10/20 11/11/20 13:46 15:59 11:43 WBC RBC Hgb Hct MCV MCH MCHC RDW Plt Count Lymph % (Auto) Seg Neutrophils % Seg Neuts % (Manual) Lymphocytes % (Manual) Nucleated RBC % Seg Neutrophils # Seg Neutrophils # Man Lymphocytes # (Manual) Monocytes # (Manual) PT INR ABG pH POC ABG pCO2 POC ABG pO2 ABG pO2 ABG HCO3 ABG O2 Saturation ABG Base Excess ABG Hemoglobin ABG Oxyhemoglobin ABG Sodium ABG Potassium ABG Chloride ABG Glucose Oxyhemoglobin Carboxyhemoglobin Sodium 153 H Potassium Chloride 120.6 H Carbon Dioxide BUN 27 H Creatinine 0.3 L Glucose 112 H POC Glucose 40 L 124 H Lactic Acid Calcium 6.8 L Phosphorus Magnesium Total Creatine Kinase Troponin T Total Protein Albumin Triglycerides LDL Cholesterol Direct HDL Cholesterol Arterial Blood Glucose Arterial Blood Ionized Calcium Urine pH Urine WBC (Auto) Vancomycin Trough Salicylates Acetaminophen Crossmatch 11/11/20 11/11/20 11/11/20 14:38 14:38 14:38 WBC 13.8 H RBC 2.43 L Hgb 7.6 L Hct 24.0 L MCV 99 H MCH MCHC RDW 18.0 H Plt Count Lymph % (Auto) Seg Neutrophils % Seg Neuts % (Manual) Lymphocytes % (Manual) Nucleated RBC % Seg Neutrophils # Seg Neutrophils # Man Lymphocytes # (Manual) Monocytes # (Manual) PT 15.0 H INR 1.18 H ABG pH POC ABG pCO2 POC ABG pO2 ABG pO2 ABG HCO3 ABG O2 Saturation ABG Base Excess ABG Hemoglobin ABG Oxyhemoglobin ABG Sodium ABG Potassium ABG Chloride ABG Glucose Oxyhemoglobin Carboxyhemoglobin Sodium 154 H Potassium 3.1 L D Chloride 122.1 H Carbon Dioxide BUN 26 H Creatinine 0.4 L Glucose 140 H POC Glucose Lactic Acid Calcium 7.3 L Phosphorus Magnesium Total Creatine Kinase Troponin T Total Protein Albumin Triglycerides LDL Cholesterol Direct HDL Cholesterol Arterial Blood Glucose Arterial Blood Ionized Calcium Urine pH Urine WBC (Auto) Vancomycin Trough Salicylates Acetaminophen Crossmatch 11/11/20 11/11/20 11/12/20 18:39 18:42 00:03 WBC RBC Hgb Hct MCV MCH MCHC RDW Plt Count Lymph % (Auto) Seg Neutrophils % Seg Neuts % (Manual) Lymphocytes % (Manual) Nucleated RBC % Seg Neutrophils # Seg Neutrophils # Man Lymphocytes # (Manual) Monocytes # (Manual) PT INR ABG pH POC ABG pCO2 POC ABG pO2 ABG pO2 ABG HCO3 ABG O2 Saturation ABG Base Excess ABG Hemoglobin ABG Oxyhemoglobin ABG Sodium ABG Potassium ABG Chloride ABG Glucose Oxyhemoglobin Carboxyhemoglobin Sodium Potassium Chloride Carbon Dioxide BUN Creatinine Glucose POC Glucose 45 L 66 L 108 H Lactic Acid Calcium Phosphorus Magnesium Total Creatine Kinase Troponin T Total Protein Albumin Triglycerides LDL Cholesterol Direct HDL Cholesterol Arterial Blood Glucose Arterial Blood Ionized Calcium Urine pH Urine WBC (Auto) Vancomycin Trough Salicylates Acetaminophen Crossmatch 11/12/20 11/12/20 11/12/20 05:44 08:33 08:33 WBC 13.4 H RBC 2.35 L Hgb 7.5 L Hct 23.7 L MCV 101 H MCH MCHC RDW 19.7 H Plt Count Lymph % (Auto) Seg Neutrophils % Seg Neuts % (Manual) Lymphocytes % (Manual) Nucleated RBC % Seg Neutrophils # Seg Neutrophils # Man Lymphocytes # (Manual) Monocytes # (Manual) PT INR ABG pH POC ABG pCO2 POC ABG pO2 ABG pO2 ABG HCO3 ABG O2 Saturation ABG Base Excess ABG Hemoglobin ABG Oxyhemoglobin ABG Sodium ABG Potassium ABG Chloride ABG Glucose Oxyhemoglobin Carboxyhemoglobin Sodium 154 H Potassium 2.9 L* Chloride 121.4 H Carbon Dioxide BUN 26 H Creatinine 0.4 L Glucose 153 H POC Glucose 114 H Lactic Acid Calcium 7.3 L Phosphorus Magnesium Total Creatine Kinase Troponin T Total Protein Albumin Triglycerides LDL Cholesterol Direct HDL Cholesterol Arterial Blood Glucose Arterial Blood Ionized Calcium Urine pH Urine WBC (Auto) Vancomycin Trough Salicylates Acetaminophen Crossmatch 11/12/20 11/12/20 11/13/20 11:38 17:17 05:28 WBC RBC Hgb Hct MCV MCH MCHC RDW Plt Count Lymph % (Auto) Seg Neutrophils % Seg Neuts % (Manual) Lymphocytes % (Manual) Nucleated RBC % Seg Neutrophils # Seg Neutrophils # Man Lymphocytes # (Manual) Monocytes # (Manual) PT INR ABG pH POC ABG pCO2 51.4 H POC ABG pO2 41.7 L ABG pO2 ABG HCO3 ABG O2 Saturation ABG Base Excess ABG Hemoglobin 9.1 L ABG Oxyhemoglobin 72.2 L ABG Sodium 151.1 H ABG Potassium 3.2 L ABG Chloride 122.0 H ABG Glucose 191 H Oxyhemoglobin Carboxyhemoglobin Sodium Potassium Chloride Carbon Dioxide BUN Creatinine Glucose POC Glucose 125 H 127 H Lactic Acid Calcium Phosphorus Magnesium Total Creatine Kinase Troponin T Total Protein Albumin Triglycerides LDL Cholesterol Direct HDL Cholesterol Arterial Blood Glucose 191 H Arterial Blood Ionized Calcium Urine pH Urine WBC (Auto) Vancomycin Trough Salicylates Acetaminophen Crossmatch 11/13/20 11/13/20 11/13/20 10:46 23:15 23:15 WBC 12.2 H RBC 2.41 L Hgb 7.7 L Hct 24.5 L MCV 102 H MCH MCHC RDW 23.0 H Plt Count Lymph % (Auto) Seg Neutrophils % Seg Neuts % (Manual) Lymphocytes % (Manual) Nucleated RBC % Seg Neutrophils # Seg Neutrophils # Man Lymphocytes # (Manual) Monocytes # (Manual) PT INR ABG pH POC ABG pCO2 POC ABG pO2 ABG pO2 ABG HCO3 ABG O2 Saturation ABG Base Excess ABG Hemoglobin ABG Oxyhemoglobin ABG Sodium ABG Potassium ABG Chloride ABG Glucose Oxyhemoglobin Carboxyhemoglobin Sodium Potassium Chloride Carbon Dioxide BUN Creatinine Glucose POC Glucose 153 H Lactic Acid Calcium Phosphorus Magnesium Total Creatine Kinase Troponin T 0.123 H* Total Protein Albumin Triglycerides LDL Cholesterol Direct HDL Cholesterol Arterial Blood Glucose Arterial Blood Ionized Calcium Urine pH Urine WBC (Auto) Vancomycin Trough Salicylates Acetaminophen Crossmatch 11/13/20 11/13/20 11/14/20 23:15 Unknown 05:26 WBC RBC Hgb Hct MCV MCH MCHC RDW Plt Count Lymph % (Auto) Seg Neutrophils % Seg Neuts % (Manual) Lymphocytes % (Manual) Nucleated RBC % Seg Neutrophils # Seg Neutrophils # Man Lymphocytes # (Manual) Monocytes # (Manual) PT INR ABG pH 7.295 L POC ABG pCO2 56.0 H POC ABG pO2 49.1 L ABG pO2 ABG HCO3 ABG O2 Saturation ABG Base Excess ABG Hemoglobin 8.3 L ABG Oxyhemoglobin 77.1 L ABG Sodium 150.5 H ABG Potassium 3.3 L ABG Chloride 121.0 H ABG Glucose 187 H Oxyhemoglobin Carboxyhemoglobin Sodium 152 H Potassium 3.3 L Chloride 117.8 H Carbon Dioxide BUN 25 H Creatinine 0.4 L Glucose 123 H POC Glucose 46 L Lactic Acid Calcium 7.5 L Phosphorus Magnesium Total Creatine Kinase Troponin T Total Protein Albumin Triglycerides LDL Cholesterol Direct HDL Cholesterol Arterial Blood Glucose 187 H Arterial Blood Ionized Calcium Urine pH Urine WBC (Auto) Vancomycin Trough Salicylates Acetaminophen Crossmatch 11/14/20 11/14/20 11/14/20 06:26 22:26 22:26 WBC RBC 2.75 L Hgb 9.0 L Hct 27.8 L MCV 101 H MCH 33 H MCHC RDW 22.8 H Plt Count Lymph % (Auto) Seg Neutrophils % Seg Neuts % (Manual) Lymphocytes % (Manual) Nucleated RBC % Seg Neutrophils # Seg Neutrophils # Man Lymphocytes # (Manual) Monocytes # (Manual) PT INR ABG pH POC ABG pCO2 POC ABG pO2 ABG pO2 ABG HCO3 ABG O2 Saturation ABG Base Excess ABG Hemoglobin ABG Oxyhemoglobin ABG Sodium ABG Potassium ABG Chloride ABG Glucose Oxyhemoglobin Carboxyhemoglobin Sodium 147 H Potassium 3.3 L Chloride 114.3 H Carbon Dioxide BUN 23 H Creatinine 0.3 L Glucose 209 H POC Glucose 135 H Lactic Acid Calcium 7.4 L Phosphorus Magnesium Total Creatine Kinase Troponin T Total Protein Albumin Triglycerides LDL Cholesterol Direct HDL Cholesterol Arterial Blood Glucose Arterial Blood Ionized Calcium Urine pH Urine WBC (Auto) Vancomycin Trough Salicylates Acetaminophen Crossmatch 11/14/20 11/15/20 11/15/20 23:22 04:28 05:57 WBC RBC Hgb Hct MCV MCH MCHC RDW Plt Count Lymph % (Auto) Seg Neutrophils % Seg Neuts % (Manual) Lymphocytes % (Manual) Nucleated RBC % Seg Neutrophils # Seg Neutrophils # Man Lymphocytes # (Manual) Monocytes # (Manual) PT INR ABG pH POC ABG pCO2 POC ABG pO2 ABG pO2 ABG HCO3 ABG O2 Saturation ABG Base Excess ABG Hemoglobin ABG Oxyhemoglobin ABG Sodium ABG Potassium ABG Chloride ABG Glucose Oxyhemoglobin Carboxyhemoglobin Sodium 152 H Potassium Chloride 118.1 H Carbon Dioxide BUN 22 H Creatinine 0.3 L Glucose 190 H POC Glucose 136 H 151 H Lactic Acid Calcium 7.5 L Phosphorus Magnesium Total Creatine Kinase Troponin T Total Protein Albumin Triglycerides LDL Cholesterol Direct HDL Cholesterol Arterial Blood Glucose Arterial Blood Ionized Calcium Urine pH Urine WBC (Auto) Vancomycin Trough Salicylates Acetaminophen Crossmatch 11/15/20 11/15/20 11/15/20 11:40 16:56 21:53 WBC RBC Hgb Hct MCV MCH MCHC RDW Plt Count Lymph % (Auto) Seg Neutrophils % Seg Neuts % (Manual) Lymphocytes % (Manual) Nucleated RBC % Seg Neutrophils # Seg Neutrophils # Man Lymphocytes # (Manual) Monocytes # (Manual) PT INR ABG pH 7.457 H POC ABG pCO2 POC ABG pO2 ABG pO2 48.3 L ABG HCO3 26.1 H ABG O2 Saturation 82.9 L ABG Base Excess ABG Hemoglobin 9.7 L ABG Oxyhemoglobin ABG Sodium ABG Potassium ABG Chloride ABG Glucose Oxyhemoglobin 81.0 L Carboxyhemoglobin Sodium Potassium Chloride Carbon Dioxide BUN Creatinine Glucose POC Glucose 129 H 115 H Lactic Acid Calcium Phosphorus Magnesium Total Creatine Kinase Troponin T Total Protein Albumin Triglycerides LDL Cholesterol Direct HDL Cholesterol Arterial Blood Glucose Arterial Blood Ionized Calcium Urine pH Urine WBC (Auto) Vancomycin Trough Salicylates Acetaminophen Crossmatch 11/15/20 11/16/20 11/16/20 23:12 00:07 00:09 WBC RBC Hgb Hct MCV MCH MCHC RDW Plt Count Lymph % (Auto) Seg Neutrophils % Seg Neuts % (Manual) Lymphocytes % (Manual) Nucleated RBC % Seg Neutrophils # Seg Neutrophils # Man Lymphocytes # (Manual) Monocytes # (Manual) PT INR ABG pH POC ABG pCO2 POC ABG pO2 ABG pO2 95.1 H ABG HCO3 26.6 H ABG O2 Saturation ABG Base Excess ABG Hemoglobin 7.5 L ABG Oxyhemoglobin ABG Sodium ABG Potassium ABG Chloride ABG Glucose Oxyhemoglobin Carboxyhemoglobin Sodium Potassium Chloride Carbon Dioxide BUN Creatinine Glucose POC Glucose 13 L 153 H Lactic Acid Calcium Phosphorus Magnesium Total Creatine Kinase Troponin T Total Protein Albumin Triglycerides LDL Cholesterol Direct HDL Cholesterol Arterial Blood Glucose Arterial Blood Ionized Calcium Urine pH Urine WBC (Auto) Vancomycin Trough Salicylates Acetaminophen Crossmatch 11/16/20 11/16/20 11/16/20 03:43 04:00 04:00 WBC RBC 2.33 L Hgb 7.7 L Hct 24.5 L MCV 105 H MCH 33 H MCHC 31 L RDW 22.9 H Plt Count Lymph % (Auto) Seg Neutrophils % Seg Neuts % (Manual) Lymphocytes % (Manual) Nucleated RBC % Seg Neutrophils # Seg Neutrophils # Man Lymphocytes # (Manual) Monocytes # (Manual) PT INR ABG pH 7.348 L POC ABG pCO2 POC ABG pO2 ABG pO2 91.6 H ABG HCO3 26.3 H ABG O2 Saturation ABG Base Excess ABG Hemoglobin 7.3 L ABG Oxyhemoglobin ABG Sodium ABG Potassium ABG Chloride ABG Glucose Oxyhemoglobin Carboxyhemoglobin Sodium 148 H Potassium 3.5 L Chloride 115.9 H Carbon Dioxide BUN Creatinine 0.4 L Glucose 195 H POC Glucose Lactic Acid Calcium 7.6 L Phosphorus Magnesium Total Creatine Kinase Troponin T Total Protein Albumin Triglycerides LDL Cholesterol Direct HDL Cholesterol Arterial Blood Glucose Arterial Blood Ionized Calcium Urine pH Urine WBC (Auto) Vancomycin Trough Salicylates Acetaminophen Crossmatch 11/16/20 11/16/20 11/16/20 05:16 07:40 12:10 WBC RBC Hgb Hct MCV MCH MCHC RDW Plt Count Lymph % (Auto) Seg Neutrophils % Seg Neuts % (Manual) Lymphocytes % (Manual) Nucleated RBC % Seg Neutrophils # Seg Neutrophils # Man Lymphocytes # (Manual) Monocytes # (Manual) PT INR ABG pH POC ABG pCO2 POC ABG pO2 ABG pO2 ABG HCO3 ABG O2 Saturation ABG Base Excess ABG Hemoglobin ABG Oxyhemoglobin ABG Sodium ABG Potassium ABG Chloride ABG Glucose Oxyhemoglobin Carboxyhemoglobin Sodium Potassium Chloride Carbon Dioxide BUN Creatinine Glucose POC Glucose 61 L 122 H 140 H Lactic Acid Calcium Phosphorus Magnesium Total Creatine Kinase Troponin T Total Protein Albumin Triglycerides LDL Cholesterol Direct HDL Cholesterol Arterial Blood Glucose Arterial Blood Ionized Calcium Urine pH Urine WBC (Auto) Vancomycin Trough Salicylates Acetaminophen Crossmatch 11/16/20 11/16/20 11/17/20 17:14 23:40 04:30 WBC RBC Hgb Hct MCV MCH MCHC RDW Plt Count Lymph % (Auto) Seg Neutrophils % Seg Neuts % (Manual) Lymphocytes % (Manual) Nucleated RBC % Seg Neutrophils # Seg Neutrophils # Man Lymphocytes # (Manual) Monocytes # (Manual) PT INR ABG pH 7.470 H POC ABG pCO2 POC ABG pO2 75.4 L ABG pO2 ABG HCO3 ABG O2 Saturation ABG Base Excess ABG Hemoglobin 7 L ABG Oxyhemoglobin ABG Sodium ABG Potassium ABG Chloride 116.0 H ABG Glucose 161 H Oxyhemoglobin Carboxyhemoglobin Sodium Potassium Chloride Carbon Dioxide BUN Creatinine Glucose POC Glucose 139 H 151 H Lactic Acid Calcium Phosphorus Magnesium Total Creatine Kinase Troponin T Total Protein Albumin Triglycerides LDL Cholesterol Direct HDL Cholesterol Arterial Blood Glucose 161 H Arterial Blood Ionized Calcium Urine pH Urine WBC (Auto) Vancomycin Trough Salicylates Acetaminophen Crossmatch 11/17/20 11/17/20 11/17/20 09:50 09:50 11:10 WBC RBC 2.02 L Hgb 6.6 L Hct 20.2 L MCV 100 H MCH 33 H MCHC RDW 22.4 H Plt Count Lymph % (Auto) Seg Neutrophils % Seg Neuts % (Manual) Lymphocytes % (Manual) Nucleated RBC % Seg Neutrophils # Seg Neutrophils # Man Lymphocytes # (Manual) Monocytes # (Manual) PT INR ABG pH POC ABG pCO2 POC ABG pO2 ABG pO2 ABG HCO3 ABG O2 Saturation ABG Base Excess ABG Hemoglobin ABG Oxyhemoglobin ABG Sodium ABG Potassium ABG Chloride ABG Glucose Oxyhemoglobin Carboxyhemoglobin Sodium Potassium Chloride 111.8 H Carbon Dioxide BUN 23 H Creatinine 0.4 L Glucose 142 H POC Glucose Lactic Acid Calcium 7.3 L Phosphorus Magnesium Total Creatine Kinase Troponin T Total Protein Albumin Triglycerides LDL Cholesterol Direct HDL Cholesterol Arterial Blood Glucose Arterial Blood Ionized Calcium Urine pH Urine WBC (Auto) Vancomycin Trough Salicylates Acetaminophen Crossmatch See Detail 11/17/20 11/17/20 11/17/20 11:52 11:57 23:22 WBC RBC Hgb Hct MCV MCH MCHC RDW Plt Count Lymph % (Auto) Seg Neutrophils % Seg Neuts % (Manual) Lymphocytes % (Manual) Nucleated RBC % Seg Neutrophils # Seg Neutrophils # Man Lymphocytes # (Manual) Monocytes # (Manual) PT INR ABG pH POC ABG pCO2 POC ABG pO2 ABG pO2 ABG HCO3 ABG O2 Saturation ABG Base Excess ABG Hemoglobin ABG Oxyhemoglobin ABG Sodium ABG Potassium ABG Chloride ABG Glucose Oxyhemoglobin Carboxyhemoglobin Sodium Potassium Chloride Carbon Dioxide BUN Creatinine Glucose POC Glucose 42 L 114 H 63 L Lactic Acid Calcium Phosphorus Magnesium Total Creatine Kinase Troponin T Total Protein Albumin Triglycerides LDL Cholesterol Direct HDL Cholesterol Arterial Blood Glucose Arterial Blood Ionized Calcium Urine pH Urine WBC (Auto) Vancomycin Trough Salicylates Acetaminophen Crossmatch 11/17/20 11/18/20 11/18/20 23:27 04:06 04:45 WBC RBC 2.36 L Hgb 7.4 L Hct 23.4 L MCV 99 H MCH MCHC RDW 21.6 H Plt Count Lymph % (Auto) Seg Neutrophils % Seg Neuts % (Manual) Lymphocytes % (Manual) Nucleated RBC % Seg Neutrophils # Seg Neutrophils # Man Lymphocytes # (Manual) Monocytes # (Manual) PT INR ABG pH POC ABG pCO2 POC ABG pO2 67.7 L ABG pO2 ABG HCO3 ABG O2 Saturation ABG Base Excess ABG Hemoglobin 8.3 L ABG Oxyhemoglobin ABG Sodium ABG Potassium ABG Chloride 112.0 H ABG Glucose 143 H Oxyhemoglobin Carboxyhemoglobin Sodium Potassium Chloride Carbon Dioxide BUN Creatinine Glucose POC Glucose 124 H Lactic Acid Calcium Phosphorus Magnesium Total Creatine Kinase Troponin T Total Protein Albumin Triglycerides LDL Cholesterol Direct HDL Cholesterol Arterial Blood Glucose 143 H Arterial Blood Ionized Calcium 4.5 L Urine pH Urine WBC (Auto) Vancomycin Trough Salicylates Acetaminophen Crossmatch 11/18/20 11/18/20 11/18/20 04:45 05:56 23:46 WBC RBC Hgb Hct MCV MCH MCHC RDW Plt Count Lymph % (Auto) Seg Neutrophils % Seg Neuts % (Manual) Lymphocytes % (Manual) Nucleated RBC % Seg Neutrophils # Seg Neutrophils # Man Lymphocytes # (Manual) Monocytes # (Manual) PT INR ABG pH POC ABG pCO2 POC ABG pO2 ABG pO2 ABG HCO3 ABG O2 Saturation ABG Base Excess ABG Hemoglobin ABG Oxyhemoglobin ABG Sodium ABG Potassium ABG Chloride ABG Glucose Oxyhemoglobin Carboxyhemoglobin Sodium Potassium Chloride 107.9 H Carbon Dioxide BUN 23 H Creatinine 0.4 L Glucose 139 H POC Glucose 133 H 66 L Lactic Acid Calcium 7.6 L Phosphorus Magnesium Total Creatine Kinase Troponin T Total Protein Albumin Triglycerides LDL Cholesterol Direct HDL Cholesterol Arterial Blood Glucose Arterial Blood Ionized Calcium Urine pH Urine WBC (Auto) Vancomycin Trough Salicylates Acetaminophen Crossmatch 11/18/20 11/19/20 11/19/20 23:52 05:48 06:36 WBC RBC Hgb Hct MCV MCH MCHC RDW Plt Count Lymph % (Auto) Seg Neutrophils % Seg Neuts % (Manual) Lymphocytes % (Manual) Nucleated RBC % Seg Neutrophils # Seg Neutrophils # Man Lymphocytes # (Manual) Monocytes # (Manual) PT INR ABG pH POC ABG pCO2 POC ABG pO2 ABG pO2 ABG HCO3 ABG O2 Saturation ABG Base Excess ABG Hemoglobin ABG Oxyhemoglobin ABG Sodium ABG Potassium ABG Chloride ABG Glucose Oxyhemoglobin Carboxyhemoglobin Sodium Potassium Chloride Carbon Dioxide BUN 21 H Creatinine 0.4 L Glucose 119 H POC Glucose 118 H 108 H Lactic Acid Calcium 7.8 L Phosphorus Magnesium Total Creatine Kinase Troponin T Total Protein Albumin Triglycerides LDL Cholesterol Direct HDL Cholesterol Arterial Blood Glucose Arterial Blood Ionized Calcium Urine pH Urine WBC (Auto) Vancomycin Trough Salicylates Acetaminophen Crossmatch 11/19/20 11/19/20 11/19/20 06:36 06:36 18:15 WBC RBC 2.79 L Hgb 9.0 L Hct 27.8 L MCV 100 H MCH MCHC RDW 20.7 H Plt Count Lymph % (Auto) Seg Neutrophils % Seg Neuts % (Manual) Lymphocytes % (Manual) Nucleated RBC % Seg Neutrophils # Seg Neutrophils # Man Lymphocytes # (Manual) Monocytes # (Manual) PT INR 1.15 H ABG pH POC ABG pCO2 POC ABG pO2 ABG pO2 ABG HCO3 ABG O2 Saturation ABG Base Excess ABG Hemoglobin ABG Oxyhemoglobin ABG Sodium ABG Potassium ABG Chloride ABG Glucose Oxyhemoglobin Carboxyhemoglobin Sodium Potassium Chloride Carbon Dioxide BUN Creatinine Glucose POC Glucose 115 H Lactic Acid Calcium Phosphorus Magnesium Total Creatine Kinase Troponin T Total Protein Albumin Triglycerides LDL Cholesterol Direct HDL Cholesterol Arterial Blood Glucose Arterial Blood Ionized Calcium Urine pH Urine WBC (Auto) Vancomycin Trough Salicylates Acetaminophen Crossmatch 11/19/20 11/19/20 11/20/20 23:27 Unknown 04:56 WBC RBC Hgb Hct MCV MCH MCHC RDW Plt Count Lymph % (Auto) Seg Neutrophils % Seg Neuts % (Manual) Lymphocytes % (Manual) Nucleated RBC % Seg Neutrophils # Seg Neutrophils # Man Lymphocytes # (Manual) Monocytes # (Manual) PT INR ABG pH 7.457 H POC ABG pCO2 POC ABG pO2 57.4 L ABG pO2 72.4 L ABG HCO3 26.9 H ABG O2 Saturation ABG Base Excess ABG Hemoglobin 8.5 L 9.6 L ABG Oxyhemoglobin 90.1 L ABG Sodium ABG Potassium ABG Chloride 109.0 H ABG Glucose 142 H Oxyhemoglobin 94.1 L Carboxyhemoglobin Sodium Potassium Chloride Carbon Dioxide BUN Creatinine Glucose POC Glucose 129 H Lactic Acid Calcium Phosphorus Magnesium Total Creatine Kinase Troponin T Total Protein Albumin Triglycerides LDL Cholesterol Direct HDL Cholesterol Arterial Blood Glucose 142 H Arterial Blood Ionized Calcium Urine pH Urine WBC (Auto) Vancomycin Trough Salicylates Acetaminophen Crossmatch 11/20/20 11/20/20 11/20/20 05:07 05:45 05:45 WBC 11.7 H RBC 2.74 L Hgb 8.9 L Hct 26.3 L MCV 96 H MCH 33 H MCHC RDW 18.6 H Plt Count Lymph % (Auto) Seg Neutrophils % Seg Neuts % (Manual) Lymphocytes % (Manual) Nucleated RBC % Seg Neutrophils # Seg Neutrophils # Man Lymphocytes # (Manual) Monocytes # (Manual) PT INR ABG pH POC ABG pCO2 POC ABG pO2 ABG pO2 ABG HCO3 ABG O2 Saturation ABG Base Excess ABG Hemoglobin ABG Oxyhemoglobin ABG Sodium ABG Potassium ABG Chloride ABG Glucose Oxyhemoglobin Carboxyhemoglobin Sodium Potassium Chloride Carbon Dioxide 31 H BUN Creatinine 0.4 L Glucose 127 H POC Glucose 129 H Lactic Acid Calcium 8.0 L Phosphorus Magnesium Total Creatine Kinase Troponin T Total Protein Albumin Triglycerides LDL Cholesterol Direct HDL Cholesterol Arterial Blood Glucose Arterial Blood Ionized Calcium Urine pH Urine WBC (Auto) Vancomycin Trough Salicylates Acetaminophen Crossmatch 11/20/20 11/20/20 11/21/20 12:02 17:52 00:02 WBC RBC Hgb Hct MCV MCH MCHC RDW Plt Count Lymph % (Auto) Seg Neutrophils % Seg Neuts % (Manual) Lymphocytes % (Manual) Nucleated RBC % Seg Neutrophils # Seg Neutrophils # Man Lymphocytes # (Manual) Monocytes # (Manual) PT INR ABG pH POC ABG pCO2 POC ABG pO2 ABG pO2 ABG HCO3 ABG O2 Saturation ABG Base Excess ABG Hemoglobin ABG Oxyhemoglobin ABG Sodium ABG Potassium ABG Chloride ABG Glucose Oxyhemoglobin Carboxyhemoglobin Sodium Potassium Chloride Carbon Dioxide BUN Creatinine Glucose POC Glucose 134 H 115 H 116 H Lactic Acid Calcium Phosphorus Magnesium Total Creatine Kinase Troponin T Total Protein Albumin Triglycerides LDL Cholesterol Direct HDL Cholesterol Arterial Blood Glucose Arterial Blood Ionized Calcium Urine pH Urine WBC (Auto) Vancomycin Trough Salicylates Acetaminophen Crossmatch 11/21/20 11/21/20 11/21/20 03:23 04:00 05:14 WBC RBC Hgb Hct MCV MCH MCHC RDW Plt Count Lymph % (Auto) Seg Neutrophils % Seg Neuts % (Manual) Lymphocytes % (Manual) Nucleated RBC % Seg Neutrophils # Seg Neutrophils # Man Lymphocytes # (Manual) Monocytes # (Manual) PT INR ABG pH 7.479 H POC ABG pCO2 POC ABG pO2 73.7 L ABG pO2 ABG HCO3 ABG O2 Saturation ABG Base Excess ABG Hemoglobin 9.4 L ABG Oxyhemoglobin ABG Sodium ABG Potassium ABG Chloride 108.0 H ABG Glucose 135 H Oxyhemoglobin Carboxyhemoglobin Sodium Potassium Chloride Carbon Dioxide 34 H BUN Creatinine 0.4 L Glucose 125 H POC Glucose 116 H Lactic Acid Calcium 7.9 L Phosphorus Magnesium Total Creatine Kinase Troponin T Total Protein Albumin Triglycerides LDL Cholesterol Direct HDL Cholesterol Arterial Blood Glucose 135 H Arterial Blood Ionized Calcium 4.5 L Urine pH Urine WBC (Auto) Vancomycin Trough Salicylates Acetaminophen Crossmatch Allied health notes reviewed: nursing
[2020-11-21] MEDS ORDERED: propofoL 200 MG/20 ML VIAL IV ONE (13:03)
[2020-11-21] MEDS ORDERED: fentaNYL 100 MCG/2 ML INJ ONE (13:09)
[2020-11-21] MEDS ORDERED: LIDOCAINE 1%/EPINEPHRINE 1:100,000 VIAL (20 ML) INFILTRATI ONE ×2 (13:21→14:11)
--- NOTE | 2020-11-21 13:48 | Anesthesia Day of Surgery ---
Anesthesia Day of Surgery - Day of Surgery Patient Examined: Yes Patient H&P Reviewed: Yes Patient is NPO: Yes
--- NOTE | 2020-11-21 13:55 | Anesthesia Consultation ---
Anesthesia Consult and Med Hx Date of service: 11/21/20 - Airway Intubation Access Assessment: Good (Pt already intubated) - Pre-Operative Health Status ASA Pre-Surgery Classification: ASA4 Proposed Anesthetic Plan: General - Pulmonary Hx Respiratory Symptoms: Yes (Intubated; respiratory failure) Hx Pneumonia: Yes (persistent moderate patchy multifocal pneumonia) - Cardiovascular System Hx Hypertension: Yes (Was on levophed) Hx Heart Attack/AMI: Yes Hx Cardia Arrhythmia: Yes (A-Fib with RVR; SVT) Hx Peripheral Vascular Disease: Yes (SFA Occlusion) - Central Nervous System Hx Neuromuscular Disorder: Yes (Encephalopathy) Hx Seizures: Yes CVA: Yes (Lg. Tetorrial infarct) Hx Psychiatric Problems: Yes (Depression/PTSD) - Endocrine Hx Renal Disease: Yes (FAZAL) - Additional Comments Anesthesia Medical History Comments: snf resident. Sepsis. MRSA
[2020-11-21] MEDS ORDERED: SODIUM CHLORIDE 0.9% IRR 1,500 ML BOTTLE IR ONE (14:11)
--- NOTE | 2020-11-21 14:31 | Progress Note ---
Assessment and Plan Cultures: 10/26/2020 tracheal aspirate culture: MRSA 10/26/2020 blood culture: Proteus 10/27/2020 urine culture: Mixed hien 07/17/2021 tracheal aspirate culture staph aureus A/P: 75-year-old male, senior living resident with seizure disorder, hypertension, depression, hyperlipidemia, chronic encephalopathy was sent to the hospital with worsening mental status: #Septic shock: probably from pneumonia. #Acute hypoxic respiratory failure: back on the vent. #Proteus bacteremia: multifactorial from infected sacral decubitus ulcer, bilateral pneumonia, UTI. S/P abx. #Acute diarrhea: ? C. difficile, improved on vancomycin p.o. Diarrhea improved, Cdiff test was not able to be done. #Necrotic, infected sacral decubitus ulcer: underwent debridement 10/29/2020, also noted to have brittle coccyx consistent with osteomyelitis. #UTI: UA with significant pyuria. #FAZAL: resolved #PVD: SFA occlusion. Not a candidate for revascularization per vascular Recs: Continue vancomycin as empiric therapy for bilateral pneumonia - planned 8 days Extend course of p.o. vancomycin due to initiation of systemic antibiotics Overall, guarded prognosis Eliezer Jack MD [facility] ([facility] O: [phone] F: [phone] Subjective Date of service: 11/21/20 Principal diagnosis: Acute Resp Fail, PNA, Septic Shock, Sacral Ulcer, AF with RVR Interval history: Afebrile, no acute changes. Imaging personally reviewed: Chest x-ray: Unchanged, persistent mild multifocal cultures. Objective - Exam Narrative Exam: General appearance: alert in NAD on BiPAP Eyes: anicteric sclerae, moist conjunctivae; no lid-lag; PERRLA HENT: Normocephalic, Atraumatic; normal external ears, nares openNeck: supple, tracheal midline Lungs: Diminished breath sound bilaterally CV: RRR Abdomen: Soft, nontender Extremities: Bilateral upper extremity and lower extremity edema Skin: No rash. Extensive scrotal edema Psych: Not agitated Neuro: Alert, open eyes, follows commands - Constitutional Vitals: Vital Signs Temp Pulse Resp BP Pulse Ox 98.7 F 112 H 21 128/81 97 11/21/20 12:20 11/21/20 13:00 11/21/20 13:00 11/21/20 13:00 11/21/20 13:00 Temperature -Last 24 Hours Temperature 98.7 F Temperature 98.8 F Temperature 97.6 F Temperature 98.6 F Temperature 98.2 F Temperature 98.7 F - Labs CBC & Chem 7: 11/20/20 05:45 11/21/20 04:00 Labs: Abnormal lab results 11/20/20 11/20/20 11/21/20 Range/Units 12:02 17:52 00:02 ABG pH (7.320-7.450) POC ABG pO2 (83-108) mmHg ABG Hemoglobin (12.0-17.5) ABG Chloride (98-107) mmol/L ABG Glucose (65-95) mg/dL Carbon Dioxide (22-30) mmol/L Creatinine (0.8-1.3) mg/dL Glucose (75-100) mg/dL POC Glucose 134 H 115 H 116 H (70-105) mg/dL Calcium (8.4-10.2) mg/dL Arterial Blood Glucose (65-95) mg/dL Arterial Blood Ionized Calcium (4.6-5.3) mg/dL 11/21/20 11/21/20 11/21/20 Range/Units 03:23 04:00 05:14 ABG pH 7.479 H (7.320-7.450) POC ABG pO2 73.7 L (83-108) mmHg ABG Hemoglobin 9.4 L (12.0-17.5) ABG Chloride 108.0 H (98-107) mmol/L ABG Glucose 135 H (65-95) mg/dL Carbon Dioxide 34 H (22-30) mmol/L Creatinine 0.4 L (0.8-1.3) mg/dL Glucose 125 H (75-100) mg/dL POC Glucose 116 H (70-105) mg/dL Calcium 7.9 L (8.4-10.2) mg/dL Arterial Blood Glucose 135 H (65-95) mg/dL Arterial Blood Ionized Calcium 4.5 L (4.6-5.3) mg/dL
[2020-11-21] MEDS: VANCOMYCIN 2,000 MG in SODIUM CHLORIDE 0.9% 500 ML 500 ML IV SCH (14:48)
[2020-11-21] MEDS ORDERED: PHENYLEPHRINE/NS 1,000 MCG/10 ML SYRINGE (OR USE) IV ONE (15:10)
--- NOTE | 2020-11-21 15:40 | Procedure Note ---
Date of procedure: 11/21/20 Pre-op diagnosis: Respiratory failure Post-op diagnosis: same Procedure: 1) Open tracheostomy 2) PEG Description of procedure: Pt was positioned supine on his bed with a shoulder roll positioned to facilitate maximal extension of the neck. Pt's neck was then maximally extended in the midline and the neck, lower face and upper chest prepped and draped. The proposed collar incision was infiltrated with 8 ml of 1% Lidocaine with epinephrine. Skin was incised. SQ tissue and platysma were transected with the Bovie. Strap muscles were divided in the midline. Anterior trachea was exposed and the 1st tracheal ring identified. An "H" type incision was made in the first tracheal ring. The pt's ET tube was slowly withdrawn and a #8 cuffed Shiley tracheostomy tube inserted into the trachea. The tracheostomy balloon was inflated and the pt immediately reconnected to the ventilator. Strap muscles were reapproximated in the midline with 3-0 Vicryl. Platysma was also reapproximated with 3-0 Vicryl. Skin was approximated with interrupted, vertical mattress sutures of 3-0 Nylon. A slitted gauze was placed behind the tracheostomy flange and the flange secured to the pt's neck via a Velcro type attachment. Bite block was then placed between the pt's incisions. The endoscope was introduced into the pt's oropharynx and the esophagus intubated under direct vision. Stomach was entered and was maximally insufflated. An ideal location for PEG insertion was selected. LUQ at this location was prepped and draped. Skin and SQ tissue at the pre-selected site were infiltrated with 5 ml of 1% Lidocaine. A small skin incision was made at this location. The introducer needle was passed through this incision and then into the stomach on the first pass. Guide wire was inserted into the stomach. Guide wire was grasped with the snare and the endoscope and guide wire removed via the pt's oropharynx. PEG tube was attached to the guide wire. External traction was then applied to the guide wire via the LUQ until the internal bolster was snug up against the gastric and abdominal weir. The external bolster and tubing clamp were placed and the PEG tubing plugged. The external bolster was optimally positioned against the abdominal wall at 4 cm. Betadine ointment was placed beneath the external bolster and a slitted gauze placed between the bolster and abdominal wall. Pt tolerated both procedures well. Pt was taken immediately back to the ICU. Anesthesia: MIKA Surgeon: PADMINI ADLER Estimated blood loss: minimal Pathology: none Condition: stable Disposition: PACU
--- NOTE | 2020-11-21 15:51 | Progress Note ---
Assessment and Plan 11/21/20 Pt is intubated, unresponsive. Tele reviewed: Afib 100s. No events overnight. Afib with uncontrolled ventricular response. Continue to hold AV Yariel blocking agents in setting of bradycardic episodes. Continue Amio gtt for rate control. No systemic AC at this time in setting of anemia requiring PRBC tx, thrombocytopenia and sacral ulcer. Elevated Troponin Considering pt's advanced age and comorbidities will plan for conservative cardiac management. Anemia requiring transfusion Continue to hold AC in setting of anemia requiring transfusions. Per sx recs maintain target Hgb>8gm/dL in anticipation of Trach & Peg. Acute Respiratory Failure Pt is intubated with ventilated respirations. Management per pulmonology. Trach & PEG being discussed with family. Pneumonia ABx per ID. Tracheal aspirate is positive for MRSA DVT Prophylaxis. Discontinue Lovenox DVT prophylaxis. No systemic AC at this time in setting of anemia requiring PRBC tx, thrombocytopenia and sacral ulcer Continue Sequential Compression Device Therapy. Will follow The patient has been seen in conjunction with Dr. Juliette Baldwin who agrees with the assessment and plan of care. - Patient Problems (1) AMS (altered mental status) Current Visit: Yes Status: Acute (2) Atrial fibrillation with RVR Current Visit: Yes Status: Acute Currently in SR with PJCs. No AC in setting of anemia. (3) Acute respiratory failure Current Visit: Yes Status: Acute (4) Bilateral pneumonia Current Visit: Yes Status: Acute (5) Sepsis Current Visit: Yes Status: Acute (6) Sepsis associated hypotension Current Visit: Yes Status: Acute Pt is requiring Levophed titration to maintain pressure (7) Sacral decubitus ulcer, stage IV Current Visit: Yes Status: Acute (8) UTI (urinary tract infection) Current Visit: Yes Status: Acute (9) FAZAL (acute kidney injury) Current Visit: Yes Status: Acute (10) Hypomagnesemia Current Visit: Yes Status: Acute (11) Anemia Current Visit: Yes Status: Acute (12) Thrombocytopenia Current Visit: Yes Status: Acute Subjective Date of service: 11/21/20 Principal diagnosis: Acute Resp Fail, PNA, Septic Shock, Sacral Ulcer, AF with RVR Interval history: Pt is intubated, unresponsive. Tele reviewed: Afib 100s. No events overnight. Objective Last Vital Signs Temp 98.7 F 11/21/20 12:20 Pulse 112 H 11/21/20 13:35 Resp 21 11/21/20 13:00 BP 128/81 11/21/20 13:35 Pulse Ox 97 11/21/20 13:35 - Physical Examination General: Other (intubated) HEENT: Positive: Normocephaly Neck: Positive: neck supple, trachea midline Cardiac: Positive: irregularly irregular, S1/S2 Lungs: Positive: Ventilated Respirations Neuro: Positive: Other (lethargic) Abdomen: Positive: Soft Skin: Positive: Wound (sacral). Negative: Rash Musculoskeletal: No Pain Extremities: Present: upper extr. pulses, lower extr. pulses, edema, Other (chronic skin changes noted) - Labs and Meds Comprehensive Metabolic Panel 11/21/20 Range/Units 04:00 Sodium 140 (137-145) mmol/L Potassium 4.2 (3.6-5.0) mmol/L Chloride 103.8 (98-107) mmol/L Carbon Dioxide 34 H (22-30) mmol/L BUN 20 (9-20) mg/dL Creatinine 0.4 L (0.8-1.3) mg/dL Glucose 125 H (75-100) mg/dL Calcium 7.9 L (8.4-10.2) mg/dL - Imaging and Cardiology EKG: report reviewed, image reviewed Echo: report reviewed (10/28/2020- EF 55-60%, no significant valvular abnormalities) - Telemetry EKG Rhythm: Atrial Fibrillation Repolarization changes or abnormalities: nonspecific abnormality, ST segment, and/or T wave - Allied health notes Allied health notes reviewed: nursing
--- NOTE | 2020-11-21 16:57 | Post Anesthesia Evaluation ---
- Post Anesthesia Evaluation Patient Participated: No Airway Patent: Yes Stable Respiratory Function: Yes Nausea/Vomiting: No Temp > 96.8F: Yes Pain Manageable: Yes Adequeate Hydration: Yes Anesthesia Complications: No Block Receding Appropriately: Not Applicable Patient on Ventilator: Yes
--- NOTE | 2020-11-21 17:48 | Progress Note ---
Assessment and Plan Assessment and plan: 75-year-old male who is a skilled nursing resident with seizure disorder, hypertension, depression, hyperlipidemia, hypoglycemia, dysphagia, and encephalopathy who is admitted for sepsis, acute kidney injury, urinary tract infection, acute respiratory failure, electrolyte imbalances, infected sacral wound and bilateral pneumonia Sepsis Acute respiratory failure with Hypoxia Cardiovascular shock Infected sacral wound s/p debridement with surgery Generalized anasarca possible acute diastolic congestive heart failure Anemia Afib Bilateral pleural effusion Right and left lung atelectasis secondary to mucous plug Proteus bacteremia MRSA pneumonia Urine tract infection Acute kidney injury with vasomotor Nephropathy Acute Diarrhea ?C.diff- Test was not peformed Leukocytosis SFA occlusion - Not a candidate for surgery per Vascular -ID, cardiology, CCM, surgery, vascular surgery, nephrology, surgery, WOCN consulted, appreciate recommendations -FAZAL, pneumonia, infected sacral wound, acute respiratory failure, leukocytosis, hypotension requiring vasopressor support -Antibiotic therapy -Trend CBC and BMP -10/26 tracheal aspirate with MRSA, 10/26 blood cultures x2 with Proteus mirabilis, 10/27 urine culture possible contaminant, 11/15: Trach aspirate positive for staph coccus aureus, 11/06 occult stool positive -On mechanical ventilation, wean as tolerated, VAP bundle, CPAP trials as tolerated -Wound care per nursing -Sedated with fentanyl -Midodrine, norepinephrine as needed -Vancomycin -Amiodarone for rate control -S/p IVF resuscitation -HIT panel negative -Surgery consulted for trach/PEG placement (planned 11/21/2020); transfuse 1 unit PRBC on 11/18 per surgery request for goal hemoglobin greater than 8. -s/p 4 units PRBC during stay GI/DVT prophylaxis: Lovenox subq, SCDs to bilateral legs while in bed, PPI Dispo: ICU The high probability of a clinically significant, sudden or life threatening deterioration of the [pulmonary, cardiac] system(s) required my full and direct attention, intervention and personal management. The aggregate critical care time was [35] minutes. This time is in addition to time spent performing reported procedures but includes the following: [X] Data Review and interpretation [X] Patient assessment and monitoring of vital signs [X] Documentation [X] Medication orders and management History Interval history: This is a 75-year-old male who is a skilled nursing resident with seizure disorder, hypertension, depression, hyperlipidemia, hypoglycemia, dysphagia, and encephalopathy who presents to the emergency department on 10/26 via EMS for tachypnea, dry mucous membranes and hypoxia. Patient was hypotensive, febrile to 103 degrees and hypoxic in the emergency department therefore he was intubated and central IV access was obtained. Patient received 3.5 L of IV fluid in the emergency department. Patient was admitted to the hospital service with consults to CCM, surgery, WOCN and ID for Sepsis, acute kidney injury, urinary tract infection, acute respiratory failure, electrolyte imbalances, infected sacral wound and bilateral pneumonia. Sepsis Acute respiratory failure with Hypoxia Cardiovascular shock Infected sacral wound s/p debridement with surgery Generalized anasarca possible acute diastolic congestive heart failure Anemia s/p 3 units prbc Bilateral pleural effusion Right and left lung atelectasis secondary to mucous plug Proteus bacteremia MRSA pneumonia Urine tract infection Acute kidney injury with vasomotor Nephropathy Acute Diarrhea ?C.diff- Test was not peformed Leukocytosis SFA occlusion - Not a candidate for surgery per Vascular SVT- Resolved Hyperchloremia Hypocalcemia Lactic acidosis 10/27: Patient received additional 4 L LR for fluid resuscitation and CV monitoring was initiated. Patient is on Levophed. ID added Flagyl to vancomycin and cefepime. His trach aspirate grew staph coccus aureus. At the time my examination patient the fentanyl drip was held by RN and he was on 14 MCG of Levophed. This morning he was on assist control 450/20/6/.100. We will give additional bolus of fluids with goal CVP 10-12 and repeat labs in AM. Surgery was consulted to possible debridement. 10/28: Overnight it was noted that patient went into SVT and he was given adenosine 6 mg/12 mg / 12 mg once and was started on a Cardizem drip after no response to amnio bolus and cardiology was consulted. Currently patient remains on Levophed drip and is hypotensive and received additional 2 L of bolus for goal CVP of 10-12. Infectious disease changed cefepime/Flagyl to meropenem for GNR in his blood cultures 09/04 and will continue vancomycin. Patient currently was not well controlled on max Cardizem and cardiology initiated amiodarone. Patient still is very tachycardic. Patient is hypomagnesemic and we will replete his Mg and recheck level. We will give the patient additional to complete resolve LR this afternoon. Patient has a standing order per [facility] to bolus the patient with LR for CVP goal of 10-12. This morning he is hyperchlormeic, metabolic acidotic (bicarb drip initiated) and his BUN/creatinine slightly elevated. Patient still remains lactic acidotic. 10/29: Patient's blood culture speciated to Proteus and his tracheal aspirate is MRSA. He is currently on ceftriaxone, Flagyl and vancomycin. Patient heart rate consistently is 110-150s and cardiology has given him an amiodarone bolus today and he remains on amiodarone drip. He looks much started on IV digoxin. This morning 4 L LR bolus was ordered and we will bolus an additional 4 L of LR this afternoon. Patient still has lactic acidosis, metabolic acidosis, leukocytosis and hyperchloremia. On examination this morning patient is more edematous and he remains on Levophed and amnio drip. 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 Remains on amio, levo and sedated with fentanyl. He is hypokalemic today which was repleted, h/h 02/18 and he is being type and crossed today with 2 units PRBC ordered to be transfused. Plt drop noted, heparin discontinued and HIT ordered. Bicarb gtt discontinued. No acute events overnight. 10/31: Patient hypomagnesemia today which was repleted and cardiology has changed his IV amiodarone to p.o. Patient will get albumin per [facility]. At the time my examination patient is on assist control 450/20/6/0.40. 11/03: At the time my examination patient is on assist control 450/20/6/0.25 and sedated with fentanyl and on Levophed at 4.Patient's leukocytosis is improving he received Albumin this weekend. Patient is hypokalemic, hypomagnesemic, hypocalcemic today. We will repeat his electrolytes and recheck a BMP in the a.m. Patient received 2 units PRBC on 10/30 and his hemoglobin has been trending down. We will recheck in the a.m. 11/04: At the time of my examination patient was on Levophed 3 mcg and on VZV/CPAP 450/20/6/0.35. Patient still has leukocytosis, respiratory alkalosis, hyponatremia, hypochloremia, hypocalcemia. Today his magnesium and potassium repleted with bolus of potassium 4/magnesium 2. He received 60 mcg KCl p.o., 40 mEq of KCl IV and 2 g of magnesium sulfate. We will recheck BMP and mag and a.m. Surgery has deemed the patient to unstable for further debulking. We also consulted vascular surgery for PVD as patient has discoloration to BLE /feet. 11/05: Vascular surgery will obtain bilateral lower extremity arterial duplex to evaluate arterial flow and recommends adding as FWF to tube feedings in assisting to wean off of vasopressors. Patient has hypokalemia, hypophosphatemia and normal to low magnesium. Magnesium, potassium and phosphate have been repleted. Patient still remains on ventilator support but on CPAP trial this morning. Patient HIT is still pending. This morning at the time of my examination patient was on assist-control 450/20/6/0.35 and he tolerated CPAP trial for 4 hours yesterday. He was on Levophed 0.5 and his rectal tube output was noted at 1000 mL. 11/06: This morning patient was on a CPAP trial and became hypoxic with SPO2 into the 80s and was switched back to assist control. Patient's vent settings are assist control tidal and 450, rate 20, PEEP 6, FiO2 0.25. Today patient has leukocytosis, hypernatremia, hyperchloremia, hypocalcemia and hypophosphatemia. We will repeat a phosphate. His free water flushes have been increased and his magnesium has been repleted again. Patient has been started on Lovenox given improvement in his platelet count and on midodrine to help keep Levophed off. Infectious disease will continue p.o. vancomycin for total of 10 days. 11/07: Patient failed his CPAP trial yesterday and has been placed on CPAP 05/06 again this morning by RT. Overnight patient was rested on assist control tolerance by 50, rate of 20, pressure support 6 and FiO2 30%. His lab work is still pending for this morning. On repeat his phosphorus was 4.50 yesterday and repletion was discontinued. 11/08/2020; patient is off pressors currently on midodrine. Patient is on ceftriaxone and vancomycin. Patient is on assist control. Patient was evaluated by vascular surgery for peripheral vascular disease with SFA occlusion and recommend no intervention at this time. Prognosis is guarded. Patient is on 2 L of intranasal oxygen. We will put speech therapy evaluation. 11/09/2020; patient is currently off pressors and on midodrine. Continue with ceftriaxone, Flagyl and vancomycin per ID recommendation. Patient's blood culture grew Proteus mirabilis and tracheal aspirate grew MRSA. Patient was evaluated by vascular surgery for PVD with SFA occlusion and recommend no intervention at this time. Patient is on 2 L of intranasal oxygen. Currently patient is on tube feeding and follow speech therapy evaluation. 11/10: Overnight noted to have increased RR, ? Awaiting speech eval considering patient still on Tube feeds. Continue to monitor Hypernatremia. Antibiotics today will be D109/14. Will continue discharge planning on discussion with CM. Patient nonrebreather. Possibly back on congestive heart failure will need appropriate diuresis. Transferred back to [facility]. Discussed with steward/stewardess dining room and also with cardiology. 11/11: Remains lethargic remains in respiratory distress chest x-ray shows right lung collapse likely secondary to mucous plug. Discussed with steward/stewardess dining room will likely undergo a bronchoscopy today. We will also continue to monitor as we did suggest possible pleural effusion which we think may be less likely but if that seems to be the case we will send patient for thoracentesis following the bronchoscopy. Continue to monitor hemoglobin continue to monitor diarrhea antibiotics management per infectious disease. I did speak and update patient's cousin yesterday. Patient still with edema will await cardiology reevaluation for possible further diuresis. 11/12: Patient for Bronchoscopy today. Continue supportive care 11/13: Patient Clinically improving, tolerated Bronchoscopy yesterday. Awaiting am labs today. Overnight had bradycardia. Continue weaning oxygen. Discussed with auto camp attendant patient did have bronchial plug plus pleural effusion but will address. Will monitor serial x-rays. Discussed with nursing staff about my discussion with the brother. Continue supportive care. PER Brother,([phone] patient has had recurrent knee aspiration. Cardiology to re-evaluate today for Bradycardia noted overnight 11/14: Patient had a repeat bronchoscopy yesterday of the right lung due to mucous plug. Promotions Director did have a conversation with the cousin as one of the considerations may be a trach due to recurrent pulmonary mucous plug and also significant debility for patient's overall medical condition. And his inability to maintain his airway. We will start him on a low round of D5 until diet is established. We will continue to monitor clinical status this morning. Plan discussed with nursing staff patient and also with staff counsel 11/15: Continues to show some improvement, will check CXR today. Wean oxygen as tolerated, will likely need Trach per pulmonary. WBC improving, will monitor Sodium level. Patient on dopamin. 11/16: Patient overnight required intubation due to worsening respiratory failure secondary to complete opacification of the right lung again. This has appeared to cleared up this morning following the intuabation. Cousin advised of the finding, he will try to get us all his records because he believes that the patient has had a trach done before but is not sure. Started on Pressors due to hypotension 11/17: Today general surgery was consulted for trach/PEG placement, patient grew staph and tracheal aspirate and his cefepime was stopped and [facility] ordered a trial dose of Lasix. At the time my examination patient was on 1 mcg of fentanyl and dopamine 5 mcg/kg per cardiology. He has hyperchloremia and his lab work and is anemic today at 6.6/20.2. Patient received 1 unit PRBC. We will obtain a CBC in the a.m. 11/18: No acute events reported overnight, patient was given Lasix again by [facility], surgery has requested transfusion of one 1 unit PRBC despite H/H being 7.4/23.4 and plans to do a tracheostomy and plans to perform PEG and trach placement on 11/21/2020. We will follow up BMP and CBC in the a.m. Coags ordered. 11/19: Patient's next of kin still Mr. Buckley's next of kin/POA is still undecided about trach/PEG, surgeon aware. [facility] has given the patient another dose of Lasix and he was noted to be in atrial fibrillation with RVR this morning. Cardiology is aware and they have opted to resume amiodarone drip for rate control. We will obtain a BMP in the a.m. 11/20: At the time of examination patient remains on amiodarone 0.05 mcg and fentanyl 1 mcg on assist control tidal volume 500, rate 20, PEEP 6, FiO2 of 40%. Patient will have Lasix dose again. Dr. Quintanilla updated the family today. 11/21: Patient remains atrial fibrillation but is better rate controlled. Patient was taking to the OR for trach/PEG General surgery. No acute events reported overnight. Patient was given diuresed again and we will recheck a BMP in the a.m. Hospitalist Physical - Constitutional Vitals: Temp Pulse Resp BP Pulse Ox 97.5 F L 107 H 15 137/95 99 11/21/20 16:00 11/21/20 17:13 11/21/20 17:00 11/21/20 17:13 11/21/20 17:13 General appearance: Present: no acute distress, other (Intubated, resting comfortably) - EENT Eyes: Present: PERRL ENT: hearing decreased, poor dentition - Neck Neck: Absent: masses or JVD, cervical LAD - Respiratory Respiratory effort: normal Respiratory: bilateral: rhonchi - Cardiovascular Rhythm: irregularly irregular Heart Sounds: Present: S1 & S2. Absent: systolic murmur, diastolic murmur - Extremities Extremities: no ischemia, pulses intact, pulses symmetrical, normal temperature, normal color Extremity abnormal: edema Peripheral Pulses: within normal limits - Abdominal General gastrointestinal: soft, non-tender, non-distended, normal bowel sounds - Integumentary Integumentary: Present: warm, dry - Psychiatric Psychiatric: cooperative - Neurologic Neurologic: CNII-XII intact, no focal deficits, other (Follows commands, track/focus) HEART Score - HEART Score EKG: Non-specific Age: > 65 Risk factors: > 3 risk factors or hx of atherosclerotic disease Troponin: Troponin T 0.123 ng/mL (0.00-0.029) H* 11/13/20 23:15 Troponin: < normal limit - Critical Actions Critical Actions: 4-6 pts:12-16.6% risk of adverse cardiac event. Should be admitted Results - Labs CBC & Chem 7: 11/20/20 05:45 11/21/20 04:00 Labs: Laboratory Last Values WBC 11.7 K/mm3 (4.5-11.0) H 11/20/20 05:45 RBC 2.74 M/mm3 (3.65-5.03) L 11/20/20 05:45 Hgb 8.9 gm/dl (11.8-15.2) L 11/20/20 05:45 Hct 26.3 % (35.5-45.6) L 11/20/20 05:45 MCV 96 fl (84-94) H 11/20/20 05:45 MCH 33 pg (28-32) H 11/20/20 05:45 MCHC 34 % (32-34) 11/20/20 05:45 RDW 18.6 % (13.2-15.2) H 11/20/20 05:45 Plt Count 342 K/mm3 (140-440) 11/20/20 05:45 Lymph % (Auto) 9.1 % (13.4-35.0) L 11/09/20 06:00 [place] % (Auto) 5.4 % (0.0-7.3) 11/09/20 06:00 Eos % (Auto) 0.3 % (0.0-4.3) 11/09/20 06:00 Baso % (Auto) 0.4 % (0.0-1.8) 11/09/20 06:00 Lymph # (Auto) 1.2 K/mm3 (1.2-5.4) 11/09/20 06:00 [place] # (Auto) 0.7 K/mm3 (0.0-0.8) 11/09/20 06:00 Eos # (Auto) 0.0 K/mm3 (0.0-0.4) 11/09/20 06:00 Baso # (Auto) 0.0 K/mm3 (0.0-0.1) 11/09/20 06:00 Add Manual Diff Complete 11/10/20 13:46 Total Counted 100 11/10/20 13:46 Seg Neutrophils % 84.8 % (40.0-70.0) H 11/09/20 06:00 Seg Neuts % (Manual) 90.0 % (40.0-70.0) H 11/10/20 13:46 Band Neutrophils % 17.0 % 10/27/20 03:30 Lymphocytes % (Manual) 3.0 % (13.4-35.0) L 11/10/20 13:46 Monocytes % (Manual) 7.0 % (0.0-7.3) 11/10/20 13:46 Eosinophils % (Manual) 2.0 % (0.0-4.3) 10/27/20 03:30 Metamyelocytes % 4.0 % 10/27/20 03:30 Nucleated RBC % Not Reportable 11/10/20 13:46 Seg Neutrophils # 11.1 K/mm3 (1.8-7.7) H 11/09/20 06:00 Seg Neutrophils # Man 14.5 K/mm3 (1.8-7.7) H 11/10/20 13:46 Band Neutrophils # 0.0 K/mm3 11/10/20 13:46 Lymphocytes # (Manual) 0.5 K/mm3 (1.2-5.4) L 11/10/20 13:46 Abs React Lymphs (Man) 0.0 K/mm3 11/10/20 13:46 Monocytes # (Manual) 1.1 K/mm3 (0.0-0.8) H 11/10/20 13:46 Eosinophils # (Manual) 0.0 K/mm3 (0.0-0.4) 11/10/20 13:46 Basophils # (Manual) 0.0 K/mm3 (0.0-0.1) 11/10/20 13:46 Metamyelocytes # 0.0 K/mm3 11/10/20 13:46 Myelocytes # 0.0 K/mm3 11/10/20 13:46 Promyelocytes # 0.0 K/mm3 11/10/20 13:46 Blast Cells # 0.0 K/mm3 11/10/20 13:46 WBC Morphology Not Reportable 11/10/20 13:46 Hypersegmented Neuts Not Reportable 11/10/20 13:46 Hyposegmented Neuts Not Reportable 11/10/20 13:46 Hypogranular Neuts Not Reportable 11/10/20 13:46 Smudge Cells Not Reportable 11/10/20 13:46 Toxic Granulation Not Reportable 11/10/20 13:46 Toxic Vacuolation Not Reportable 11/10/20 13:46 Dohle Bodies Not Reportable 11/10/20 13:46 Pelger-Huet Anomaly Not Reportable 11/10/20 13:46 Kassi Rods Not Reportable 11/10/20 13:46 Platelet Estimate Not Reportable 11/10/20 13:46 Clumped Platelets Not Reportable 11/10/20 13:46 Plt Clumps, EDTA Not Reportable 11/10/20 13:46 Large Platelets Not Reportable 11/10/20 13:46 Giant Platelets Not Reportable 11/10/20 13:46 Platelet Satelliting Not Reportable 11/10/20 13:46 Plt Morphology Comment Not Reportable 11/10/20 13:46 RBC Morphology Not Reportable 11/10/20 13:46 Dimorphic RBCs Yes 11/10/20 13:46 Polychromasia Not Reportable 11/10/20 13:46 Hypochromasia Not Reportable 11/10/20 13:46 Poikilocytosis Not Reportable 11/10/20 13:46 Anisocytosis Not Reportable 11/10/20 13:46 Microcytosis Rare 11/10/20 13:46 Macrocytosis Rare 11/10/20 13:46 Spherocytes Not Reportable 11/10/20 13:46 Pappenheimer Bodies Not Reportable 11/10/20 13:46 Sickle Cells Not Reportable 11/10/20 13:46 Target Cells Not Reportable 11/10/20 13:46 Tear Drop Cells Not Reportable 11/10/20 13:46 Ovalocytes Not Reportable 11/10/20 13:46 Helmet Cells Not Reportable 11/10/20 13:46 [place]-Aneth Bodies Not Reportable 11/10/20 13:46 Bovey Rings Not Reportable 11/10/20 13:46 Rhea Cells Not Reportable 11/10/20 13:46 Bite Cells Not Reportable 11/10/20 13:46 Crenated Cell Not Reportable 11/10/20 13:46 Elliptocytes Not Reportable 11/10/20 13:46 Acanthocytes (Spur) Not Reportable 11/10/20 13:46 Rouleaux Not Reportable 11/10/20 13:46 Hemoglobin C Crystals Not Reportable 11/10/20 13:46 Schistocytes Not Reportable 11/10/20 13:46 Malaria parasites Not Reportable 11/10/20 13:46 Richard Bodies Not Reportable 11/10/20 13:46 Hem Pathologist Commnt No 11/10/20 13:46 PT 14.7 Sec. (12.2-14.9) 11/19/20 06:36 INR 1.15 (0.87-1.13) H 11/19/20 06:36 APTT 27.9 Sec. (24.2-36.6) 10/26/20 17:25 Heparin Anti-Xa, Unfract Negative (Negative) 11/03/20 11:01 ABG pH 7.479 (7.320-7.450) H 11/21/20 03:23 POC ABG pCO2 41.9 mmHg (32.0-48.0) 11/21/20 03: ABG pCO2 43.4 mm Hg 11/19/20 Unknown POC ABG pO2 73.7 mmHg (83-108) L 11/21/20 03:23 ABG pO2 72.4 mm Hg (80.0-90.0) L 11/19/20 Unknown POC ABG HCO3 30.4 11/21/20 03: ABG HCO3 26.9 mmol/L (20.0-26.0) H 11/19/20 Unknown ABG O2 Saturation 95.6 (0-100) 11/21/20 03:23 ABG O2 Content 11.3 (0.0-44) 11/19/20 Unknown POC ABG Base Excess 6.3 11/21/20 03:23 ABG Base Excess 2.0 mmol/L (-2.0-3.0) 11/19/20 Unknown ABG Hemoglobin 9.4 (12.0-17.5) L 11/21/20 03:23 ABG Oxyhemoglobin 94.6 (94-98) 11/21/20 03:23 ABG Carboxyhemoglobin 2.0 % (0.0-5.0) 11/19/20 Unknown ABG Methemoglobin 0.3 (0.0-1.5) 11/21/20 03:23 ABG Sodium 137.1 mmol/L (136.0-145.0) 11/21/20 03:23 ABG Potassium 4.2 mmol/L (3.40-4.50) 11/21/20 03:23 ABG Chloride 108.0 mmol/L (98-107) H 11/21/20 03:23 ABG Glucose 135 mg/dL (65-95) H 11/21/20 03:23 Oxyhemoglobin 94.1 % (95.0-99.0) L 11/19/20 Unknown Carboxyhemoglobin 0.7 (0.5-1.5) 11/21/20 03:23 FiO2 30 % 11/19/20 Unknown FiO2 % 35.0 11/21/20 03:23 Sodium 140 mmol/L (137-145) 11/21/20 04:00 Potassium 4.2 mmol/L (3.6-5.0) 11/21/20 04:00 Chloride 103.8 mmol/L (98-107) 11/21/20 04:00 Carbon Dioxide 34 mmol/L (22-30) H 11/21/20 04:00 Anion Gap 6 mmol/L 11/21/20 04:00 BUN 20 mg/dL (9-20) 11/21/20 04:00 Creatinine 0.4 mg/dL (0.8-1.3) L 11/21/20 04:00 Estimated GFR > 60 ml/min 11/21/20 04:00 BUN/Creatinine Ratio 50 % 11/21/20 04:00 Glucose 125 mg/dL (75-100) H 11/21/20 04:00 POC Glucose 81 mg/dL (70-105) 11/21/20 12:06 Hemoglobin A1c 5.5 % (4-6) 10/27/20 04:42 Lactic Acid 4.30 mmol/L (0.7-2.0) H* 10/31/20 Unknown Calcium 7.9 mg/dL (8.4-10.2) L 11/21/20 04:00 Phosphorus 4.50 mg/dL (2.5-4.5) D 11/06/20 13:03 Magnesium 1.70 mg/dL (1.7-2.3) 11/21/20 09:47 Total Bilirubin < 0.20 mg/dL (0.1-1.2) 11/06/20 06:45 AST 23 units/L (5-40) 11/06/20 06:45 ALT 20 units/L (7-56) 11/06/20 06:45 Alkaline Phosphatase 117 units/L (35-129) 11/06/20 06:45 Total Creatine Kinase 31 units/L (55-170) L 10/26/20 17:28 Troponin T 0.123 ng/mL (0.00-0.029) H* 11/13/20 23:15 Total Protein 5.0 g/dL (6.3-8.2) L 11/06/20 06:45 Albumin 1.4 g/dL (3.9-5) L 11/06/20 06:45 Albumin/Globulin Ratio 0.4 % 11/06/20 06:45 Triglycerides 190 mg/dL (2-149) H 10/26/20 17:25 Cholesterol 92 mg/dL (50-199) 10/26/20 17:25 LDL Cholesterol Direct 33 mg/dL (50-130) L 10/26/20 17:25 HDL Cholesterol 18 mg/dL (40-59) L 10/26/20 17:25 Cholesterol/HDL Ratio 5.11 % 10/26/20 17:25 Serotonin Release Assay See scanned results 11/03/20 11:01 TSH 1.490 mlU/mL (0.270-4.200) 10/26/20 17:28 Arterial Blood Glucose 135 mg/dL (65-95) H 11/21/20 03:23 Arterial Blood Ionized Calcium 4.5 mg/dL (4.6-5.3) L 11/21/20 03:23 Urine Color Yellow (Yellow) 10/27/20 Unknown Urine Turbidity Turbid (Clear) 10/27/20 Unknown Urine pH 8.0 (5.0-7.0) H 10/27/20 Unknown Ur Specific [place] 1.020 (1.003-1.030) 10/27/20 Unknown Urine Protein >500 mg/dL (Negative) 10/27/20 Unknown Urine Glucose (UA) Neg mg/dL (Negative) 10/27/20 Unknown Urine Ketones Neg mg/dL (Negative) 10/27/20 Unknown Urine Blood Sm (Negative) 10/27/20 Unknown Urine Nitrite Neg (Negative) 10/27/20 Unknown Urine Bilirubin Neg (Negative) 10/27/20 Unknown Urine Urobilinogen < 2.0 mg/dL (<2.0) 10/27/20 Unknown Ur Leukocyte Esterase Mod (Negative) 10/27/20 Unknown Urine WBC (Auto) > 182.0 /HPF (0.0-6.0) H 10/27/20 Unknown Urine RBC (Auto) 35.0 /HPF (0.0-6.0) 10/27/20 Unknown Urine WBC Clumps 3+ /HPF 10/27/20 Unknown Urine Mucus 3+ /HPF 10/27/20 Unknown Urine Yeast (Budding) 3+ /HPF 10/27/20 Unknown Vancomycin Trough 18.0 ug/mL (5.0-20.0) 11/19/20 09:06 Salicylates < 0.3 mg/dL (2.8-20.0) L 10/26/20 17:28 Acetaminophen 5.0 ug/mL (10.0-30.0) L 10/26/20 17:28 Heparin-induced Plt Ab Negative (Negative) 11/03/20 11:01 UF Heparin High Dose 0 % Release 11/03/20 11:01 MOISES UFH Low Dose 0.1 2 % Release 11/03/20 11:01 MOISES UFH Low Dose 0.5 0 % Release 11/03/20 11:01 Coronavirus (PCR) Negative (Negative) 10/27/20 Unknown Blood Type O POSITIVE 11/17/20 11:10 Antibody Screen Negative 11/17/20 11:10 Crossmatch See Detail 11/17/20 11:10 Rivas/IV: Voiding Method Indwelling Catheter Active Medications - Current Medications Current Medications: Generic Name Dose Route Start Last Admin Trade Name Freq PRN Reason Stop Dose Admin Acetaminophen 650 mg 10/26/20 22:22 11/13/20 14:36 Acetaminophen 325 Mg Tab PO 650 mg Q4H PRN Administration Pain MILD(1-3)/Fever >100.5/TIERNEY Albuterol 2.5 mg 11/11/20 14:00 11/21/20 14:32 Albuterol 2.5 Mg/3 Ml Nebu IH Not Given TIDRT MARSHALL Lipase/Protease/Amylase 1 each 10/28/20 13:18 Lipase 10,500/Protease 25,000/Amylase 43,750 (Units) Dr Cap FEEDTUBE PRN PRN For Clogged Feeding Tube Famotidine 20 mg 11/11/20 10:00 11/21/20 10:26 Famotidine 20 Mg Tab PO 20 mg BID MARSHALL Administration Fentanyl 50 mcg 11/15/20 22:30 11/19/20 09:51 Fentanyl 100 Mcg/2 Ml Inj IV 50 mcg Q10MIN PRN Administration ANALGESIA Hydrophilic Ointment 1 applic 11/15/20 22:30 Lip Therapy Vaseline TP Q2HR PRN Dry Lips Fentanyl Citrate 2,000 mcg in 100 mls @ 6.55 mls/hr 11/15/20 23:00 11/21/20 07:47 Fentanyl Drip Premix IV 1 mcg/kg/hr TITR MARSHALL 6.55 mls/hr Administration Protocol 1 MCG/KG/HR Norepinephrine 4 mg in 250 mls @ 7.5 mls/hr 11/15/20 23:45 11/17/20 01:37 Levophed Drip 4 Mg/Ns 250 Ml IV 0 mcg/min TITR MARSHALL 0 mls/hr Titration Protocol 2 MCG/MIN Vancomycin HCl 2,000 mg/ 540 mls @ 333 mls/hr 11/16/20 12:00 11/21/20 14:48 Sodium Chloride IV 11/23/20 13:38 333 mls/hr Q24H MARSHALL Administration Protocol Amiodarone HCl 900 mg/ 500 mls @ 33.333 mls/hr 11/19/20 13:00 11/20/20 12:23 Dextrose IV 0.5 mg/min DIRECT MARSHALL 16.667 mls/hr Administration Protocol 1 MG/MIN Amiodarone HCl 900 mg/ 500 mls @ 16.667 mls/hr 11/21/20 18:00 Dextrose IV DIRECT MARSHALL Protocol 0.5 MG/MIN Midodrine 10 mg 11/06/20 12:00 11/21/20 17:12 Midodrine 5 Mg Tab PO Not Given TID@0800,1200,1600 [facility] Multi-Ingred Cream/Lotion/Oil/Oint 1 applic 11/15/20 22:30 Mineral Oil/Petrolatum, White Ophth Oint 3.5 Gm OU Q4HR PRN Dry Eye(s) Ondansetron HCl 4 mg 10/26/20 22:22 Ondansetron 4 Mg/2 Ml Inj IV Q8H PRN Nausea And Vomiting Simple Syrup 15 ml 10/28/20 13:18 11/10/20 16:01 Simple Syrup 15 Ml FEEDTUBE 15 ml PRN PRN Administration Hypoglycemia Simple Syrup 30 ml 10/28/20 13:18 Simple Syrup 15 Ml FEEDTUBE PRN PRN Hypoglycemia Sodium Bicarbonate 325 mg 10/28/20 13:18 Sodium Bicarbonate 325 Mg Tab FEEDTUBE PRN PRN For Clogged Feeding Tube Sodium Chloride 10 ml 10/27/20 10:00 11/21/20 12:26 Sodium Chloride 0.9% 10 Ml Flush Syringe IV 10 ml BID MARSHALL Administration Sodium Chloride 10 ml 10/26/20 22:22 Sodium Chloride 0.9% 10 Ml Flush Syringe IV PRN PRN LINE FLUSH Sodium Hypochlorite 1 applic 10/28/20 10:00 11/21/20 09:00 Sodium Hypochlorite, Dakin's 1/2 Strength (0.25%) 473 Ml Topical Soln TP 1 applicatio BID MARSHALL Administration Vancomycin HCl 125 mg 11/16/20 12:00 11/21/20 17:12 Vancomycin 250 Mg/10 Ml Oral Liqd PO 125 mg Q6HR MARSHALL Administration Protocol Nutrition/Malnutrition Assess - Dietary Evaluation Nutrition/Malnutrition Findings: Nutrition Notes Start: 10/27/20 09:15 Freq: Status: Active Protocol: Document 11/20/20 13:47 CW (Rec: 11/20/20 13:51 CW [id number]) Nutrition Notes Initial or Follow up Reassessment Current Diagnosis Acute Kidney Injury,Decubitus( Pressure Ulcer),Sepsis, Hypertension,Respiratory Failure,Hyperlipidemia Other Pertinent Diagnosis AMS, MRSA, Encephalopathy, Metabiloc Acidosis, pneu ,FTT Current Diet Promote at 80 ml/hr Labs/Tests reviewed Pertinent Medications Lasix Vancomycin Height 6 ft 2 in Weight 135 kg [place] Body Weight (kg) 86.36 BMI 38.2 Weight change and time frame wt change noted Weight Status Obese Subjective/Other Information F/U for tolerance. Pt remains on mechanical vent. TF running at goal and continue to be tolerated. Pt has had diarrhea likely r/t ABTx. Plan is for Pt to receive PEG and trach Percent of energy/protein needs met: 100%/90% Burn Absent Trauma Absent GI Symptoms Diarrhea Difficulty In Swallowing,Chewing Skin Integrity/Comment Multiple pressure ulcer,1 infected Current % PO Negligible Minimum of two criteria No Fluid Accumulation Moderate to Severe (severe) #2 Nutrition Diagnosis Increased nutrient needs ( specify in comment below) Diagnosis Progress(for reassessment Continues documentation) #1 Nutrition Diagnosis Inadequate oral intake Diagnosis Progress(for reassessment Continues documentation) Is patient on ventilator? Yes Is Patient Ambulatory and/or Out of Bed No REE-([place]-St. Jeor-confined to bed) 2585.376 Kcal/Kg value to use for calculation 14 Approximate Energy Requirements Using 1890 kcal/Kg Calculation Used for Recommendations Kcal/kg Additional Notes protein needs: 133 - 167g(1.2 - 1.5 g/kgAdBW 111) Fluid needs 1 ml/kcal Nutrition Intervention Change Diet Order: Continue Nutrition Support: Promote at 80 ml/hr with a flush of 50 ml q4h Kcal 1,920 Protein (gm) 120 Fluid (mL) 1,611 Goal #1 TF tolerance Goal #2 Meet at least 75% EER and protein needs via TF Goal #3 wound healing Anticipated Discharge Needs: TF Follow-Up By: 11/26/20 Additional Comments F/U for stable TF
[2020-11-21] MEDS ORDERED: AMIODARONE 900 MG in DEXTROSE 5% IN WATER 482 ML IV SCH (18:00)
[2020-11-22] MEDS: VANCOMYCIN 250 MG/10 ML ORAL LIQD PO SCH ×3 (01:08→12:53)
--- NOTE | 2020-11-22 02:14 | XRay Report ---
CHEST 1 VIEW 11/22/2020 12:59 AM INDICATION / CLINICAL INFORMATION: Follow-up respiratory failure. COMPARISON: Yesterday. FINDINGS: SUPPORT DEVICES: The endotracheal tube has been removed with a tracheostomy tube in good position. Th e nasogastric tube has been removed. The position of the right jugular CVL has not changed. HEART / MEDIASTINUM: Unchanged. LUNGS / PLEURA: Moderately severe diffuse parenchymal opacities have increased. A small right pleural effusion has shown minimal change. No pneumothorax. ADDITIONAL FINDINGS: No significant additional findings. IMPRESSION: Increasing diffuse bilateral parenchymal disease. Signer Name: You Olmstead MD Signed: 11/22/2020 2:10 AM Workstation Name: [id number]
[2020-11-22 05:56] LABS: Hematocrit 27.4 % (35.5-45.6); Hemoglobin 8.7 gm/dl (11.8-15.2); Mean Corpuscular HGB Conc 32 % (32-34); Mean Corpuscular Volume 100 fl (84-94); Platelet Count 371 K/mm3 (140-440); Red Blood Count 2.74 M/mm3 (3.65-5.03); Red Cell Distribution Width 19.2 % (13.2-15.2)
[2020-11-22 06:18] LABS: Blood Urea Nitrogen 16 mg/dL (9-20); Calcium 7.7 mg/dL (8.4-10.2); Hemolysis Index 4
[2020-11-22 06:23] LABS: BUN/Creatinine Ratio 40
[2020-11-22] MEDS ORDERED: DEXTROSE 50% IN WATER (25GM) 50 ML SYRINGE IV ONE (08:08)
[2020-11-22] MEDS: ALBUTEROL 2.5 MG/3 ML NEBU IH SCH ×3 (08:25→21:30)
--- NOTE | 2020-11-22 08:25 | Progress Note ---
Assessment and Plan 75-year-old male who is a group home resident with seizure disorder, hypertension, depression, hyperlipidemia, hypoglycemia, dysphagia, and encephalopathy who is admitted for sepsis, acute kidney injury, urinary tract infection, acute respiratory failure, electrolyte imbalances, infected sacral wound and bilateral pneumonia Sepsis-resolving. Acute respiratory failure with Hypoxia patient now has tracheostomy stable to attempt transfer process Cardiovascular shock Infected sacral wound s/p debridement with surgery Generalized anasarca possible acute diastolic congestive heart failure Anemia Afib Bilateral pleural effusion Right and left lung atelectasis secondary to mucous plug Proteus bacteremia MRSA pneumonia Urine tract infection Acute kidney injury with vasomotor Nephropathy Acute Diarrhea ?C.diff- Test was not peformed Leukocytosis SFA occlusion - Not a candidate for surgery per Vascular -ID, cardiology, CCM, surgery, vascular surgery, nephrology, surgery, WOCN consulted, appreciate recommendations -FAZAL, pneumonia, infected sacral wound, acute respiratory failure, leukocytosis, hypotension requiring vasopressor support -Antibiotic therapy -Trend CBC and BMP -10/26 tracheal aspirate with MRSA, 10/26 blood cultures x2 with Proteus mirabilis, 10/27 urine culture possible contaminant, 11/15: Trach aspirate positive for staph coccus aureus, 11/06 occult stool positive -On mechanical ventilation, wean as tolerated, VAP bundle, CPAP trials as tolerated -Wound care per nursing -Sedated with fentanyl -Midodrine, norepinephrine as needed -Vancomycin -Amiodarone for rate control -S/p IVF resuscitation -HIT panel negative -Surgery consulted for trach/PEG placement (planned 11/21/2020); transfuse 1 unit PRBC on 11/18 per surgery request for goal hemoglobin greater than 8. -s/p 4 units PRBC during stay GI/DVT prophylaxis: Lovenox subq, SCDs to bilateral legs while in bed, PPI Dispo: ICU The high probability of a clinically significant, sudden or life threatening deterioration of the [pulmonary, cardiac] system(s) required my full and direct attention, intervention and personal management. The aggregate critical care time was [35] minutes. This time is in addition to time spent performing reported procedures but includes the following: [X] Data Review and interpretation [X] Patient assessment and monitoring of vital signs [X] Documentation [X] Medication orders and management Subjective Date of service: 11/22/20 Principal diagnosis: Acute Resp Fail, PNA, Septic Shock, Sacral Ulcer, AF with RVR Interval history: This is a 75-year-old male who is a group home resident with seizure disorder, hypertension, depression, hyperlipidemia, hypoglycemia, dysphagia, and encephalopathy who presents to the emergency department on 10/26 via EMS for tachypnea, dry mucous membranes and hypoxia. Patient was hypotensive, febrile to 103 degrees and hypoxic in the emergency department therefore he was intubated and central IV access was obtained. Patient received 3.5 L of IV fluid in the emergency department. Patient was admitted to the hospital service with consults to CCM, surgery, WOCN and ID for Sepsis, acute kidney injury, urinary tract infection, acute respiratory failure, electrolyte imbalances, infected sacral wound and bilateral pneumonia. Sepsis Acute respiratory failure with Hypoxia Cardiovascular shock Infected sacral wound s/p debridement with surgery Generalized anasarca possible acute diastolic congestive heart failure Anemia s/p 3 units prbc Bilateral pleural effusion Right and left lung atelectasis secondary to mucous plug Proteus bacteremia MRSA pneumonia Urine tract infection Acute kidney injury with vasomotor Nephropathy Acute Diarrhea ?C.diff- Test was not peformed Leukocytosis SFA occlusion - Not a candidate for surgery per Vascular SVT- Resolved Hyperchloremia Hypocalcemia Lactic acidosis 10/27: Patient received additional 4 L LR for fluid resuscitation and CV monitoring was initiated. Patient is on Levophed. ID added Flagyl to vancomycin and cefepime. His trach aspirate grew staph coccus aureus. At the time my examination patient the fentanyl drip was held by RN and he was on 14 MCG of Levophed. This morning he was on assist control 450/20/6/.100. We will give additional bolus of fluids with goal CVP 10-12 and repeat labs in AM. Surgery was consulted to possible debridement. 10/28: Overnight it was noted that patient went into SVT and he was given adenosi ne 6 mg/12 mg / 12 mg once and was started on a Cardizem drip after no response to amnio bolus and cardiology was consulted. Currently patient remains on Levophed drip and is hypotensive and received additional 2 L of bolus for goal CVP of 10-12. Infectious disease changed cefepime/Flagyl to meropenem for GNR in his blood cultures 09/04 and will continue vancomycin. Patient currently was not well controlled on max Cardizem and cardiology initiated amiodarone. Patient still is very tachycardic. Patient is hypomagnesemic and we will replete his Mg and recheck level. We will give the patient additional to complete resolve LR this afternoon. Patient has a standing order per [facility] to bolus the patient with LR for CVP goal of 10-12. This morning he is hyperchlormeic, metabolic acidotic (bicarb drip initiated) and his BUN/creatinine slightly elevated. Patient still remains lactic acidotic. 10/29: Patient's blood culture speciated to Proteus and his tracheal aspirate is MRSA. He is currently on ceftriaxone, Flagyl and vancomycin. Patient heart rate consistently is 110-150s and cardiology has given him an amiodarone bolus today and he remains on amiodarone drip. He looks much started on IV digoxin. This morning 4 L LR bolus was ordered and we will bolus an additional 4 L of LR this afternoon. Patient still has lactic acidosis, metabolic acidosis, leukocytosis and hyperchloremia. On examination this morning patient is more edematous and he remains on Levophed and amnio drip. 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 Remains on amio, levo and sedated with fentanyl. He is hypokalemic today which was repleted, h/h 02/18 and he is being type and crossed today with 2 units PRBC ordered to be transfused. Plt drop noted, heparin discontinued and HIT ordered. Bicarb gtt discontinued. No acute events overnight. 10/31: Patient hypomagnesemia today which was repleted and cardiology has changed his IV amiodarone to p.o. Patient will get albumin per [facility]. At the time my examination patient is on assist control 450/20/6/0.40. 11/03: At the time my examination patient is on assist control 450/20/6/0.25 and sedated with fentanyl and on Levophed at 4.Patient's leukocytosis is improving he received Albumin this weekend. Patient is hypokalemic, hypomagnesemic, hypocalcemic today. We will repeat his electrolytes and recheck a BMP in the a.m. Patient received 2 units PRBC on 10/30 and his hemoglobin has been trending down. We will recheck in the a.m. 11/04: At the time of my examination patient was on Levophed 3 mcg and on VZV/CPAP 450/20/6/0.35. Patient still has leukocytosis, respiratory alkalosis, hyponatremia, hypochloremia, hypocalcemia. Today his magnesium and potassium repleted with bolus of potassium 4/magnesium 2. He received 60 mcg KCl p.o., 40 mEq of KCl IV and 2 g of magnesium sulfate. We will recheck BMP and mag and a.m. Surgery has deemed the patient to unstable for further debulking. We also consulted vascular surgery for PVD as patient has discoloration to BLE /feet. 11/05: Vascular surgery will obtain bilateral lower extremity arterial duplex to evaluate arterial flow and recommends adding as FWF to tube feedings in assisting to wean off of vasopressors. Patient has hypokalemia, hypophosphatemia and normal to low magnesium. Magnesium, potassium and phosphate have been repleted. Patient still remains on ventilator support but on CPAP trial this morning. Patient HIT is still pending. This morning at the time of my examination patient was on assist-control 450/20/6/0.35 and he tolerated CPAP trial for 4 hours yesterday. He was on Levophed 0.5 and his rectal tube output was noted at 1000 mL. 11/06: This morning patient was on a CPAP trial and became hypoxic with SPO2 into the 80s and was switched back to assist control. Patient's vent settings are assist control tidal and 450, rate 20, PEEP 6, FiO2 0.25. Today patient has leukocytosis, hypernatremia, hyperchloremia, hypocalcemia and hypophosphatemia. We will repeat a phosphate. His free water flushes have been increased and his magnesium has been repleted again. Patient has been started on Lovenox given improvement in his platelet count and on midodrine to help keep Levophed off. Infectious disease will continue p.o. vancomycin for total of 10 days. 11/07: Patient failed his CPAP trial yesterday and has been placed on CPAP 05/06 again this morning by RT. Overnight patient was rested on assist control tolerance by 50, rate of 20, pressure support 6 and FiO2 30%. His lab work is still pending for this morning. On repeat his phosphorus was 4.50 yesterday and repletion was discontinued. 11/08/2020; patient is off pressors currently on midodrine. Patient is on ceftriaxone and vancomycin. Patient is on assist control. Patient was evaluated by vascular surgery for peripheral vascular disease with SFA occlusion and recommend no intervention at this time. Prognosis is guarded. Patient is on 2 L of intranasal oxygen. We will put speech therapy evaluation. 11/09/2020; patient is currently off pressors and on midodrine. Continue with ceftriaxone, Flagyl and vancomycin per ID recommendation. Patient's blood culture grew Proteus mirabilis and tracheal aspirate grew MRSA. Patient was evaluated by vascular surgery for PVD with SFA occlusion and recommend no intervention at this time. Patient is on 2 L of intranasal oxygen. Currently patient is on tube feeding and follow speech therapy evaluation. 11/10: Overnight noted to have increased RR, ? Awaiting speech eval considering patient still on Tube feeds. Continue to monitor Hypernatremia. Antibiotics today will be D12/14. Will continue discharge planning on discussion with CM. Patient nonrebreather. Possibly back on congestive heart failure will need appropriate diuresis. Transferred back to [facility]. Discussed with materials handler and also with cardiology. 11/11: Remains lethargic remains in respiratory distress chest x-ray shows right lung collapse likely secondary to mucous plug. Discussed with materials handler will likely undergo a bronchoscopy today. We will also continue to monitor as we did suggest possible pleural effusion which we think may be less likely but if that seems to be the case we will send patient for thoracentesis following the bronchoscopy. Continue to monitor hemoglobin continue to monitor diarrhea antibiotics management per infectious disease. I did speak and update patient's cousin yesterday. Patient still with edema will await cardiology reevaluation for possible further diuresis. 11/12: Patient for Bronchoscopy today. Continue supportive care 11/13: Patient Clinically improving, tolerated Bronchoscopy yesterday. Awaiting am labs today. Overnight had bradycardia. Continue weaning oxygen. Discussed with paperhanger patient did have bronchial plug plus pleural effusion but will address. Will monitor serial x-rays. Discussed with nursing staff about my discussion with the brother. Continue supportive care. PER Brother,([phone] patient has had recurrent knee aspiration. Cardiology to re-evaluate today for Bradycardia noted overnight 11/14: Patient had a repeat bronchoscopy yesterday of the right lung due to mucous plug. Lead Developer did have a conversation with the cousin as one of the considerations may be a trach due to recurrent pulmonary mucous plug and also significant debility for patient's overall medical condition. And his inability to maintain his airway. We will start him on a low round of D5 until diet is established. We will continue to monitor clinical status this morning. Plan discussed with nursing staff patient and also with oven technician 11/15: Continues to show some improvement, will check CXR today. Wean oxygen as tolerated, will likely need Trach per pulmonary. WBC improving, will monitor Sodium level. Patient on dopamin. 11/16: Patient overnight required intubation due to worsening respiratory failure secondary to complete opacification of the right lung again. This has appeared to cleared up this morning following the intu[employer]. Cousin advised of the finding, he will try to get us all his records because he believes that the patient has had a trach done before but is not sure. Started on Pressors due to hypotension 11/17: Today general surgery was consulted for trach/PEG placement, patient grew staph and tracheal aspirate and his cefepime was stopped and [facility] ordered a trial dose of Lasix. At the time my examination patient was on 1 mcg of fentanyl and dopamine 5 mcg/kg per cardiology. He has hyperchloremia and his lab work and is anemic today at 6.6/20.2. Patient received 1 unit PRBC. We will obtain a CBC in the a.m. 11/18: No acute events reported overnight, patient was given Lasix again by [facility], surgery has requested transfusion of one 1 unit PRBC despite H/H being 7.4/23.4 and plans to do a tracheostomy and plans to perform PEG and trach placement on 11/21/2020. We will follow up BMP and CBC in the a.m. Coags ordered. 11/19: Patient's next of kin still Mr. Buckley's next of kin/POA is still undecided about trach/PEG, surgeon aware. [facility] has given the patient another dose of Lasix and he was noted to be in atrial fibrillation with RVR this morning. Cardiology is aware and they have opted to resume amiodarone drip for rate control. We will obtain a BMP in the a.m. 11/20: At the time of examination patient remains on amiodarone 0.05 mcg and fentanyl 1 mcg on assist control tidal volume 500, rate 20, PEEP 6, FiO2 of 40%. Patient will have Lasix dose again. Dr. Quintanilla updated the family today. 11/21: Patient remains atrial fibrillation but is better rate controlled. Patient was taking to the OR for trach/PEG General surgery. No acute events reported overnight. Patient was given diuresed again and we will recheck a BMP in the a.m. 11/21. Patient tolerated tracheostomy. Alert no new concerns. Patient able to not that he is not in pain. Objective - Constitutional Vitals: Vital Signs - 12hr 11/21/20 11/21/20 11/21/20 20:30 21:00 21:30 Temperature Pulse Rate 123 H 120 H 123 H Pulse Rate [ Anterior Bilateral Throughout] Pulse Rate [ From Monitor] Respiratory 18 20 20 Rate Respiratory Rate [Anterior Bilateral Throughout] Blood Pressure 127/71 143/93 144/101 O2 Sat by Pulse 93 100 98 Oximetry 11/21/20 11/21/20 11/21/20 21:34 21:54 22:00 Temperature Pulse Rate 114 H 109 H 109 H Pulse Rate [ 117 H Anterior Bilateral Throughout] Pulse Rate [ From Monitor] Respiratory 18 21 Rate Respiratory 20 Rate [Anterior Bilateral Throughout] Blood Pressure 129/83 134/76 140/76 O2 Sat by Pulse 100 93 100 Oximetry 11/21/20 11/21/20 11/21/20 22:30 23:00 23:30 Temperature Pulse Rate 117 H 121 H 121 H Pulse Rate [ Anterior Bilateral Throughout] Pulse Rate [ From Monitor] Respiratory 17 17 21 Rate Respiratory Rate [Anterior Bilateral Throughout] Blood Pressure 149/81 141/90 139/97 O2 Sat by Pulse 100 85 100 Oximetry 11/21/20 11/22/20 11/22/20 23:55 00:00 00:30 Temperature 99.2 F Pulse Rate 112 H 101 H Pulse Rate [ Anterior Bilateral Throughout] Pulse Rate [ 99 H From Monitor] Respiratory 20 20 Rate Respiratory Rate [Anterior Bilateral Throughout] Blood Pressure 141/91 144/93 O2 Sat by Pulse 98 100 Oximetry 11/22/20 11/22/20 11/22/20 01:00 01:07 01:30 Temperature Pulse Rate 113 H 111 H 109 H Pulse Rate [ Anterior Bilateral Throughout] Pulse Rate [ From Monitor] Respiratory 21 20 Rate Respiratory Rate [Anterior Bilateral Throughout] Blood Pressure 155/95 145/99 144/96 O2 Sat by Pulse 100 100 100 Oximetry 11/22/20 11/22/20 11/22/20 02:00 02:30 03:00 Temperature Pulse Rate 112 H 106 H 108 H Pulse Rate [ Anterior Bilateral Throughout] Pulse Rate [ From Monitor] Respiratory 20 20 21 Rate Respiratory Rate [Anterior Bilateral Throughout] Blood Pressure 146/92 147/90 136/86 O2 Sat by Pulse 100 100 100 Oximetry 11/22/20 11/22/20 11/22/20 03:30 04:00 04:01 Temperature 99.5 F Pulse Rate 112 H 110 H Pulse Rate [ Anterior Bilateral Throughout] Pulse Rate [ 99 H From Monitor] Respiratory 20 17 Rate Respiratory Rate [Anterior Bilateral Throughout] Blood Pressure 152/113 134/78 O2 Sat by Pulse 100 100 Oximetry 11/22/20 11/22/20 11/22/20 04:30 04:43 05:00 Temperature Pulse Rate 108 H 100 H 110 H Pulse Rate [ Anterior Bilateral Throughout] Pulse Rate [ From Monitor] Respiratory 17 20 Rate Respiratory Rate [Anterior Bilateral Throughout] Blood Pressure 138/84 145/77 135/79 O2 Sat by Pulse 100 100 100 Oximetry 11/22/20 11/22/20 11/22/20 05:30 06:00 06:30 Temperature Pulse Rate 113 H 111 H 113 H Pulse Rate [ Anterior Bilateral Throughout] Pulse Rate [ From Monitor] Respiratory 16 21 17 Rate Respiratory Rate [Anterior Bilateral Throughout] Blood Pressure 142/85 161/99 168/93 O2 Sat by Pulse 100 100 91 Oximetry 11/22/20 11/22/20 07:00 07:30 Temperature Pulse Rate 117 H 118 H Pulse Rate [ Anterior Bilateral Throughout] Pulse Rate [ From Monitor] Respiratory 19 13 Rate Respiratory Rate [Anterior Bilateral Throughout] Blood Pressure 143/95 153/95 O2 Sat by Pulse 100 98 Oximetry General appearance: Present: no acute distress, well-nourished, other (Tracheostomy) - Gastrointestinal Rectal Exam: other (PEG placement) - Musculoskeletal Musculoskeletal: generalized weakness - Neurologic Neurologic: moves all extremities - Psychiatric Psychiatric: memory intact, appropriate mood/affect, intact judgment & insight - Labs CBC & Chem 7: 11/22/20 04:00 11/22/20 04:00 Labs: Abnormal lab results 11/22/20 11/22/20 11/22/20 Range/Units 04:00 04:00 05:34 WBC 12.2 H (4.5-11.0) K/mm3 RBC 2.74 L (3.65-5.03) M/mm3 Hgb 8.7 L (11.8-15.2) gm/dl Hct 27.4 L (35.5-45.6) % MCV 100 H (84-94) fl RDW 19.2 H (13.2-15.2) % Creatinine 0.4 L (0.8-1.3) mg/dL POC Glucose 58 L (70-105) mg/dL Calcium 7.7 L (8.4-10.2) mg/dL HEART Score - HEART Score EKG: Non-specific Age: > 65 Risk factors: > 3 risk factors or hx of atherosclerotic disease Troponin: Troponin T 0.123 ng/mL (0.00-0.029) H* 11/13/20 23:15 Troponin: < normal limit - Critical Actions Critical Actions: 4-6 pts:12-16.6% risk of adverse cardiac event. Should be admitted
[2020-11-22] MEDS: DEXTROSE 10% IN WATER 1,000 ML IV SCH (12:14)
--- NOTE | 2020-11-22 12:22 | Progress Note ---
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 10/31/20 10/31/20 10/31/20 04:37 04:37 05:08 WBC 21.7 H RBC Hgb Hct MCV MCH MCHC RDW 16.1 H Plt Count 39 L Lymph % (Auto) Seg Neutrophils % Seg Neuts % (Manual) Lymphocytes % (Manual) Nucleated RBC % Seg Neutrophils # Seg Neutrophils # Man Lymphocytes # (Manual) Monocytes # (Manual) PT INR ABG pH POC ABG pCO2 POC ABG pO2 ABG pO2 ABG HCO3 ABG O2 Saturation ABG Base Excess ABG Hemoglobin ABG Oxyhemoglobin ABG Sodium ABG Potassium ABG Chloride ABG Glucose Oxyhemoglobin Carboxyhemoglobin Sodium Potassium Chloride 108.4 H Carbon Dioxide BUN 25 H Creatinine 0.5 L Glucose 140 H POC Glucose 140 H Lactic Acid Calcium 6.1 L Phosphorus Magnesium 1.50 L Total Creatine Kinase Troponin T Total Protein Albumin Triglycerides LDL Cholesterol Direct HDL Cholesterol Arterial Blood Glucose Arterial Blood Ionized Calcium Urine pH Urine WBC (Auto) Vancomycin Trough Salicylates Acetaminophen Crossmatch 10/31/20 10/31/20 10/31/20 11:12 18:50 23:21 WBC RBC Hgb Hct MCV MCH MCHC RDW Plt Count Lymph % (Auto) Seg Neutrophils % Seg Neuts % (Manual) Lymphocytes % (Manual) Nucleated RBC % Seg Neutrophils # Seg Neutrophils # Man Lymphocytes # (Manual) Monocytes # (Manual) PT INR ABG pH POC ABG pCO2 POC ABG pO2 ABG pO2 ABG HCO3 ABG O2 Saturation ABG Base Excess ABG Hemoglobin ABG Oxyhemoglobin ABG Sodium ABG Potassium ABG Chloride ABG Glucose Oxyhemoglobin Carboxyhemoglobin Sodium Potassium Chloride Carbon Dioxide BUN Creatinine Glucose POC Glucose 125 H 142 H 127 H Lactic Acid Calcium Phosphorus Magnesium Total Creatine Kinase Troponin T Total Protein Albumin Triglycerides LDL Cholesterol Direct HDL Cholesterol Arterial Blood Glucose Arterial Blood Ionized Calcium Urine pH Urine WBC (Auto) Vancomycin Trough Salicylates Acetaminophen Crossmatch 10/31/20 11/01/20 11/01/20 Unknown 03:40 04:21 WBC RBC Hgb Hct MCV MCH MCHC RDW Plt Count Lymph % (Auto) Seg Neutrophils % Seg Neuts % (Manual) Lymphocytes % (Manual) Nucleated RBC % Seg Neutrophils # Seg Neutrophils # Man Lymphocytes # (Manual) Monocytes # (Manual) PT INR ABG pH 7.489 H POC ABG pCO2 POC ABG pO2 ABG pO2 77.2 L ABG HCO3 ABG O2 Saturation ABG Base Excess ABG Hemoglobin 7.1 L ABG Oxyhemoglobin ABG Sodium ABG Potassium ABG Chloride ABG Glucose Oxyhemoglobin Carboxyhemoglobin Sodium Potassium 3.1 L Chloride 107.1 H Carbon Dioxide BUN 25 H Creatinine 0.5 L Glucose 148 H POC Glucose Lactic Acid 4.30 H* Calcium 6.0 L Phosphorus Magnesium Total Creatine Kinase Troponin T Total Protein Albumin Triglycerides LDL Cholesterol Direct HDL Cholesterol Arterial Blood Glucose Arterial Blood Ionized Calcium Urine pH Urine WBC (Auto) Vancomycin Trough Salicylates Acetaminophen Crossmatch 11/01/20 11/01/20 11/01/20 05:13 11:42 17:38 WBC RBC Hgb Hct MCV MCH MCHC RDW Plt Count Lymph % (Auto) Seg Neutrophils % Seg Neuts % (Manual) Lymphocytes % (Manual) Nucleated RBC % Seg Neutrophils # Seg Neutrophils # Man Lymphocytes # (Manual) Monocytes # (Manual) PT INR ABG pH POC ABG pCO2 POC ABG pO2 ABG pO2 ABG HCO3 ABG O2 Saturation ABG Base Excess ABG Hemoglobin ABG Oxyhemoglobin ABG Sodium ABG Potassium ABG Chloride ABG Glucose Oxyhemoglobin Carboxyhemoglobin Sodium Potassium Chloride Carbon Dioxide BUN Creatinine Glucose POC Glucose 139 H 139 H 161 H Lactic Acid Calcium Phosphorus Magnesium Total Creatine Kinase Troponin T Total Protein Albumin Triglycerides LDL Cholesterol Direct HDL Cholesterol Arterial Blood Glucose Arterial Blood Ionized Calcium Urine pH Urine WBC (Auto) Vancomycin Trough Salicylates Acetaminophen Crossmatch 11/01/20 11/01/20 11/02/20 23:20 Unknown 04:30 WBC 18.2 H RBC 3.27 L Hgb 9.9 L Hct 30.1 L D MCV MCH MCHC RDW 15.7 H Plt Count 34 L Lymph % (Auto) Seg Neutrophils % Seg Neuts % (Manual) Lymphocytes % (Manual) Nucleated RBC % Seg Neutrophils # Seg Neutrophils # Man Lymphocytes # (Manual) Monocytes # (Manual) PT INR ABG pH 7.456 H POC ABG pCO2 POC ABG pO2 ABG pO2 ABG HCO3 ABG O2 Saturation ABG Base Excess ABG Hemoglobin 9.2 L ABG Oxyhemoglobin ABG Sodium ABG Potassium ABG Chloride ABG Glucose Oxyhemoglobin Carboxyhemoglobin Sodium Potassium Chloride Carbon Dioxide BUN Creatinine Glucose POC Glucose 168 H Lactic Acid Calcium Phosphorus Magnesium Total Creatine Kinase Troponin T Total Protein Albumin Triglycerides LDL Cholesterol Direct HDL Cholesterol Arterial Blood Glucose Arterial Blood Ionized Calcium Urine pH Urine WBC (Auto) Vancomycin Trough Salicylates Acetaminophen Crossmatch 11/02/20 11/02/20 11/02/20 06:29 08:40 08:40 WBC 16.6 H RBC 2.87 L Hgb 8.8 L Hct 26.6 L MCV MCH MCHC RDW 15.8 H Plt Count 30 L Lymph % (Auto) Seg Neutrophils % Seg Neuts % (Manual) 97.0 H Lymphocytes % (Manual) 2.0 L Nucleated RBC % 1.0 H Seg Neutrophils # Seg Neutrophils # Man 16.1 H Lymphocytes # (Manual) 0.3 L Monocytes # (Manual) PT INR ABG pH POC ABG pCO2 POC ABG pO2 ABG pO2 ABG HCO3 ABG O2 Saturation ABG Base Excess ABG Hemoglobin ABG Oxyhemoglobin ABG Sodium ABG Potassium ABG Chloride ABG Glucose Oxyhemoglobin Carboxyhemoglobin Sodium Potassium 2.4 L* D Chloride 110.2 H Carbon Dioxide BUN 23 H Creatinine 0.4 L Glucose 154 H POC Glucose 131 H Lactic Acid Calcium 6.1 L Phosphorus Magnesium 1.50 L Total Creatine Kinase Troponin T Total Protein Albumin Triglycerides LDL Cholesterol Direct HDL Cholesterol Arterial Blood Glucose Arterial Blood Ionized Calcium Urine pH Urine WBC (Auto) Vancomycin Trough Salicylates Acetaminophen Crossmatch 11/02/20 11/02/20 11/02/20 13:17 17:25 18:05 WBC RBC Hgb Hct MCV MCH MCHC RDW Plt Count Lymph % (Auto) Seg Neutrophils % Seg Neuts % (Manual) Lymphocytes % (Manual) Nucleated RBC % Seg Neutrophils # Seg Neutrophils # Man Lymphocytes # (Manual) Monocytes # (Manual) PT INR ABG pH POC ABG pCO2 POC ABG pO2 ABG pO2 ABG HCO3 ABG O2 Saturation ABG Base Excess ABG Hemoglobin ABG Oxyhemoglobin ABG Sodium ABG Potassium ABG Chloride ABG Glucose Oxyhemoglobin Carboxyhemoglobin Sodium Potassium 3.1 L D Chloride Carbon Dioxide BUN Creatinine Glucose POC Glucose 134 H 140 H Lactic Acid Calcium Phosphorus Magnesium Total Creatine Kinase Troponin T Total Protein Albumin Triglycerides LDL Cholesterol Direct HDL Cholesterol Arterial Blood Glucose Arterial Blood Ionized Calcium Urine pH Urine WBC (Auto) Vancomycin Trough Salicylates Acetaminophen Crossmatch 11/02/20 11/03/20 11/03/20 23:36 04:15 05:07 WBC RBC Hgb Hct MCV MCH MCHC RDW Plt Count Lymph % (Auto) Seg Neutrophils % Seg Neuts % (Manual) Lymphocytes % (Manual) Nucleated RBC % Seg Neutrophils # Seg Neutrophils # Man Lymphocytes # (Manual) Monocytes # (Manual) PT INR ABG pH POC ABG pCO2 POC ABG pO2 ABG pO2 ABG HCO3 ABG O2 Saturation ABG Base Excess ABG Hemoglobin ABG Oxyhemoglobin ABG Sodium ABG Potassium ABG Chloride ABG Glucose Oxyhemoglobin Carboxyhemoglobin Sodium Potassium 3.0 L Chloride 111.8 H Carbon Dioxide BUN 24 H Creatinine 0.3 L Glucose 141 H POC Glucose 127 H 156 H Lactic Acid Calcium 5.8 L* Phosphorus Magnesium 1.60 L Total Creatine Kinase Troponin T Total Protein Albumin Triglycerides LDL Cholesterol Direct HDL Cholesterol Arterial Blood Glucose Arterial Blood Ionized Calcium Urine pH Urine WBC (Auto) Vancomycin Trough Salicylates Acetaminophen Crossmatch 11/03/20 11/03/20 11/04/20 11:14 17:31 00:17 WBC RBC Hgb Hct MCV MCH MCHC RDW Plt Count Lymph % (Auto) Seg Neutrophils % Seg Neuts % (Manual) Lymphocytes % (Manual) Nucleated RBC % Seg Neutrophils # Seg Neutrophils # Man Lymphocytes # (Manual) Monocytes # (Manual) PT INR ABG pH POC ABG pCO2 POC ABG pO2 ABG pO2 ABG HCO3 ABG O2 Saturation ABG Base Excess ABG Hemoglobin ABG Oxyhemoglobin ABG Sodium ABG Potassium ABG Chloride ABG Glucose Oxyhemoglobin Carboxyhemoglobin Sodium Potassium Chloride Carbon Dioxide BUN Creatinine Glucose POC Glucose 137 H 151 H 156 H Lactic Acid Calcium Phosphorus Magnesium Total Creatine Kinase Troponin T Total Protein Albumin Triglycerides LDL Cholesterol Direct HDL Cholesterol Arterial Blood Glucose Arterial Blood Ionized Calcium Urine pH Urine WBC (Auto) Vancomycin Trough Salicylates Acetaminophen Crossmatch 11/04/20 11/04/20 11/04/20 05:34 05:34 11:16 WBC 21.9 H RBC 2.67 L Hgb 8.2 L Hct 24.8 L MCV MCH MCHC RDW 15.6 H Plt Count 48 L Lymph % (Auto) Seg Neutrophils % Seg Neuts % (Manual) Lymphocytes % (Manual) Nucleated RBC % Seg Neutrophils # Seg Neutrophils # Man Lymphocytes # (Manual) Monocytes # (Manual) PT INR ABG pH POC ABG pCO2 POC ABG pO2 ABG pO2 ABG HCO3 ABG O2 Saturation ABG Base Excess ABG Hemoglobin ABG Oxyhemoglobin ABG Sodium ABG Potassium ABG Chloride ABG Glucose Oxyhemoglobin Carboxyhemoglobin Sodium 146 H Potassium Chloride 114.6 H Carbon Dioxide BUN 29 H Creatinine 0.3 L Glucose 173 H POC Glucose 156 H Lactic Acid Calcium 5.7 L* Phosphorus Magnesium Total Creatine Kinase Troponin T Total Protein Albumin Triglycerides LDL Cholesterol Direct HDL Cholesterol Arterial Blood Glucose Arterial Blood Ionized Calcium Urine pH Urine WBC (Auto) Vancomycin Trough Salicylates Acetaminophen Crossmatch 11/04/20 11/04/20 11/04/20 11:42 17:18 23:12 WBC RBC Hgb Hct MCV MCH MCHC RDW Plt Count Lymph % (Auto) Seg Neutrophils % Seg Neuts % (Manual) Lymphocytes % (Manual) Nucleated RBC % Seg Neutrophils # Seg Neutrophils # Man Lymphocytes # (Manual) Monocytes # (Manual) PT INR ABG pH 7.525 H POC ABG pCO2 28.9 L POC ABG pO2 64.3 L ABG pO2 ABG HCO3 ABG O2 Saturation ABG Base Excess ABG Hemoglobin 8.2 L ABG Oxyhemoglobin ABG Sodium ABG Potassium 3.3 L ABG Chloride 115.0 H ABG Glucose 165 H Oxyhemoglobin Carboxyhemoglobin Sodium Potassium Chloride Carbon Dioxide BUN Creatinine Glucose POC Glucose 144 H 155 H Lactic Acid Calcium Phosphorus Magnesium Total Creatine Kinase Troponin T Total Protein Albumin Triglycerides LDL Cholesterol Direct HDL Cholesterol Arterial Blood Glucose 165 H Arterial Blood Ionized Calcium 4.0 L Urine pH Urine WBC (Auto) Vancomycin Trough Salicylates Acetaminophen Crossmatch 11/05/20 11/05/20 11/05/20 04:48 04:48 05:57 WBC 17.4 H RBC 2.49 L Hgb 7.8 L Hct 23.5 L MCV MCH MCHC RDW 16.0 H Plt Count 69 L Lymph % (Auto) Seg Neutrophils % Seg Neuts % (Manual) Lymphocytes % (Manual) Nucleated RBC % Seg Neutrophils # Seg Neutrophils # Man Lymphocytes # (Manual) Monocytes # (Manual) PT INR ABG pH POC ABG pCO2 POC ABG pO2 ABG pO2 ABG HCO3 ABG O2 Saturation ABG Base Excess ABG Hemoglobin ABG Oxyhemoglobin ABG Sodium ABG Potassium ABG Chloride ABG Glucose Oxyhemoglobin Carboxyhemoglobin Sodium 147 H Potassium 3.5 L Chloride 115.4 H Carbon Dioxide BUN 34 H Creatinine 0.3 L Glucose 154 H POC Glucose 146 H Lactic Acid Calcium 6.1 L Phosphorus 2.00 L Magnesium Total Creatine Kinase Troponin T Total Protein Albumin Triglycerides LDL Cholesterol Direct HDL Cholesterol Arterial Blood Glucose Arterial Blood Ionized Calcium Urine pH Urine WBC (Auto) Vancomycin Trough Salicylates Acetaminophen Crossmatch 11/05/20 11/05/20 11/05/20 11:33 17:52 23:37 WBC RBC Hgb Hct MCV MCH MCHC RDW Plt Count Lymph % (Auto) Seg Neutrophils % Seg Neuts % (Manual) Lymphocytes % (Manual) Nucleated RBC % Seg Neutrophils # Seg Neutrophils # Man Lymphocytes # (Manual) Monocytes # (Manual) PT INR ABG pH POC ABG pCO2 POC ABG pO2 ABG pO2 ABG HCO3 ABG O2 Saturation ABG Base Excess ABG Hemoglobin ABG Oxyhemoglobin ABG Sodium ABG Potassium ABG Chloride ABG Glucose Oxyhemoglobin Carboxyhemoglobin Sodium Potassium Chloride Carbon Dioxide BUN Creatinine Glucose POC Glucose 144 H 136 H 151 H Lactic Acid Calcium Phosphorus Magnesium Total Creatine Kinase Troponin T Total Protein Albumin Triglycerides LDL Cholesterol Direct HDL Cholesterol Arterial Blood Glucose Arterial Blood Ionized Calcium Urine pH Urine WBC (Auto) Vancomycin Trough Salicylates Acetaminophen Crossmatch 11/06/20 11/06/20 11/06/20 05:36 06:45 06:45 WBC 15.0 H RBC 2.33 L Hgb 7.2 L Hct 22.1 L MCV 95 H MCH MCHC RDW 16.2 H Plt Count 103 L Lymph % (Auto) Seg Neutrophils % Seg Neuts % (Manual) Lymphocytes % (Manual) Nucleated RBC % Seg Neutrophils # Seg Neutrophils # Man Lymphocytes # (Manual) Monocytes # (Manual) PT INR ABG pH POC ABG pCO2 POC ABG pO2 ABG pO2 ABG HCO3 ABG O2 Saturation ABG Base Excess ABG Hemoglobin ABG Oxyhemoglobin ABG Sodium ABG Potassium ABG Chloride ABG Glucose Oxyhemoglobin Carboxyhemoglobin Sodium 148 H Potassium Chloride 118.2 H Carbon Dioxide BUN 32 H Creatinine 0.4 L Glucose 153 H POC Glucose 140 H Lactic Acid Calcium 6.4 L Phosphorus 0.90 L* D Magnesium Total Creatine Kinase Troponin T Total Protein 5.0 L Albumin 1.4 L Triglycerides LDL Cholesterol Direct HDL Cholesterol Arterial Blood Glucose Arterial Blood Ionized Calcium Urine pH Urine WBC (Auto) Vancomycin Trough Salicylates Acetaminophen Crossmatch 11/06/20 11/06/20 11/06/20 11:32 17:37 23:19 WBC RBC Hgb Hct MCV MCH MCHC RDW Plt Count Lymph % (Auto) Seg Neutrophils % Seg Neuts % (Manual) Lymphocytes % (Manual) Nucleated RBC % Seg Neutrophils # Seg Neutrophils # Man Lymphocytes # (Manual) Monocytes # (Manual) PT INR ABG pH POC ABG pCO2 POC ABG pO2 ABG pO2 ABG HCO3 ABG O2 Saturation ABG Base Excess ABG Hemoglobin ABG Oxyhemoglobin ABG Sodium ABG Potassium ABG Chloride ABG Glucose Oxyhemoglobin Carboxyhemoglobin Sodium Potassium Chloride Carbon Dioxide BUN Creatinine Glucose POC Glucose 132 H 133 H 145 H Lactic Acid Calcium Phosphorus Magnesium Total Creatine Kinase Troponin T Total Protein Albumin Triglycerides LDL Cholesterol Direct HDL Cholesterol Arterial Blood Glucose Arterial Blood Ionized Calcium Urine pH Urine WBC (Auto) Vancomycin Trough Salicylates Acetaminophen Crossmatch 11/07/20 11/07/20 11/07/20 12:55 16:45 16:45 WBC 12.0 H RBC 3.63 L Hgb 11.4 L D Hct MCV 104 H MCH MCHC 30 L RDW 18.0 H Plt Count 133 L Lymph % (Auto) Seg Neutrophils % Seg Neuts % (Manual) Lymphocytes % (Manual) Nucleated RBC % Seg Neutrophils # Seg Neutrophils # Man Lymphocytes # (Manual) Monocytes # (Manual) PT INR ABG pH POC ABG pCO2 POC ABG pO2 ABG pO2 ABG HCO3 ABG O2 Saturation ABG Base Excess ABG Hemoglobin 7.7 L ABG Oxyhemoglobin ABG Sodium ABG Potassium ABG Chloride ABG Glucose Oxyhemoglobin 94.9 L Carboxyhemoglobin Sodium 149 H Potassium Chloride 119.8 H Carbon Dioxide BUN 31 H Creatinine 0.4 L Glucose 130 H POC Glucose Lactic Acid Calcium 6.5 L Phosphorus Magnesium Total Creatine Kinase Troponin T Total Protein Albumin Triglycerides LDL Cholesterol Direct HDL Cholesterol Arterial Blood Glucose Arterial Blood Ionized Calcium Urine pH Urine WBC (Auto) Vancomycin Trough Salicylates Acetaminophen Crossmatch 11/07/20 11/08/20 11/08/20 17:23 00:12 06:11 WBC RBC Hgb Hct MCV MCH MCHC RDW Plt Count Lymph % (Auto) Seg Neutrophils % Seg Neuts % (Manual) Lymphocytes % (Manual) Nucleated RBC % Seg Neutrophils # Seg Neutrophils # Man Lymphocytes # (Manual) Monocytes # (Manual) PT INR ABG pH POC ABG pCO2 POC ABG pO2 ABG pO2 ABG HCO3 ABG O2 Saturation ABG Base Excess ABG Hemoglobin ABG Oxyhemoglobin ABG Sodium ABG Potassium ABG Chloride ABG Glucose Oxyhemoglobin Carboxyhemoglobin Sodium Potassium Chloride Carbon Dioxide BUN Creatinine Glucose POC Glucose 115 H 129 H 109 H Lactic Acid Calcium Phosphorus Magnesium Total Creatine Kinase Troponin T Total Protein Albumin Triglycerides LDL Cholesterol Direct HDL Cholesterol Arterial Blood Glucose Arterial Blood Ionized Calcium Urine pH Urine WBC (Auto) Vancomycin Trough Salicylates Acetaminophen Crossmatch 11/08/20 11/08/20 11/08/20 17:36 23:49 23:58 WBC RBC Hgb Hct MCV MCH MCHC RDW Plt Count Lymph % (Auto) Seg Neutrophils % Seg Neuts % (Manual) Lymphocytes % (Manual) Nucleated RBC % Seg Neutrophils # Seg Neutrophils # Man Lymphocytes # (Manual) Monocytes # (Manual) PT INR ABG pH POC ABG pCO2 POC ABG pO2 ABG pO2 ABG HCO3 ABG O2 Saturation ABG Base Excess ABG Hemoglobin ABG Oxyhemoglobin ABG Sodium ABG Potassium ABG Chloride ABG Glucose Oxyhemoglobin Carboxyhemoglobin Sodium Potassium Chloride Carbon Dioxide BUN Creatinine Glucose 138 H POC Glucose 38 L 36 L Lactic Acid Calcium Phosphorus Magnesium Total Creatine Kinase Troponin T Total Protein Albumin Triglycerides LDL Cholesterol Direct HDL Cholesterol Arterial Blood Glucose Arterial Blood Ionized Calcium Urine pH Urine WBC (Auto) Vancomycin Trough Salicylates Acetaminophen Crossmatch 11/09/20 11/09/20 11/09/20 05:33 06:00 06:00 WBC 13.1 H RBC 2.35 L Hgb 7.6 L D Hct 22.9 L D MCV 97 H MCH MCHC RDW 16.8 H Plt Count Lymph % (Auto) 9.1 L Seg Neutrophils % 84.8 H Seg Neuts % (Manual) Lymphocytes % (Manual) Nucleated RBC % Seg Neutrophils # 11.1 H Seg Neutrophils # Man Lymphocytes # (Manual) Monocytes # (Manual) PT INR ABG pH POC ABG pCO2 POC ABG pO2 ABG pO2 ABG HCO3 ABG O2 Saturation ABG Base Excess ABG Hemoglobin ABG Oxyhemoglobin ABG Sodium ABG Potassium ABG Chloride ABG Glucose Oxyhemoglobin Carboxyhemoglobin Sodium 150 H Potassium 3.4 L D Chloride 119.2 H Carbon Dioxide BUN 30 H Creatinine 0.4 L Glucose 137 H POC Glucose 58 L Lactic Acid Calcium 7.2 L Phosphorus Magnesium Total Creatine Kinase Troponin T Total Protein Albumin Triglycerides LDL Cholesterol Direct HDL Cholesterol Arterial Blood Glucose Arterial Blood Ionized Calcium Urine pH Urine WBC (Auto) Vancomycin Trough Salicylates Acetaminophen Crossmatch 11/09/20 11/09/20 11/10/20 06:08 22:16 13:46 WBC 16.1 H RBC 2.52 L Hgb 8.1 L Hct 25.2 L MCV 100 H MCH MCHC RDW 18.2 H Plt Count Lymph % (Auto) Seg Neutrophils % Seg Neuts % (Manual) 90.0 H Lymphocytes % (Manual) 3.0 L Nucleated RBC % Seg Neutrophils # Seg Neutrophils # Man 14.5 H Lymphocytes # (Manual) 0.5 L Monocytes # (Manual) 1.1 H PT INR ABG pH POC ABG pCO2 POC ABG pO2 ABG pO2 ABG HCO3 ABG O2 Saturation ABG Base Excess ABG Hemoglobin ABG Oxyhemoglobin ABG Sodium ABG Potassium ABG Chloride ABG Glucose Oxyhemoglobin Carboxyhemoglobin Sodium Potassium Chloride Carbon Dioxide BUN Creatinine Glucose POC Glucose 122 H 120 H Lactic Acid Calcium Phosphorus Magnesium Total Creatine Kinase Troponin T Total Protein Albumin Triglycerides LDL Cholesterol Direct HDL Cholesterol Arterial Blood Glucose Arterial Blood Ionized Calcium Urine pH Urine WBC (Auto) Vancomycin Trough Salicylates Acetaminophen Crossmatch 11/10/20 11/10/20 11/11/20 13:46 15:59 11:43 WBC RBC Hgb Hct MCV MCH MCHC RDW Plt Count Lymph % (Auto) Seg Neutrophils % Seg Neuts % (Manual) Lymphocytes % (Manual) Nucleated RBC % Seg Neutrophils # Seg Neutrophils # Man Lymphocytes # (Manual) Monocytes # (Manual) PT INR ABG pH POC ABG pCO2 POC ABG pO2 ABG pO2 ABG HCO3 ABG O2 Saturation ABG Base Excess ABG Hemoglobin ABG Oxyhemoglobin ABG Sodium ABG Potassium ABG Chloride ABG Glucose Oxyhemoglobin Carboxyhemoglobin Sodium 153 H Potassium Chloride 120.6 H Carbon Dioxide BUN 27 H Creatinine 0.3 L Glucose 112 H POC Glucose 40 L 124 H Lactic Acid Calcium 6.8 L Phosphorus Magnesium Total Creatine Kinase Troponin T Total Protein Albumin Triglycerides LDL Cholesterol Direct HDL Cholesterol Arterial Blood Glucose Arterial Blood Ionized Calcium Urine pH Urine WBC (Auto) Vancomycin Trough Salicylates Acetaminophen Crossmatch 11/11/20 11/11/20 11/11/20 14:38 14:38 14:38 WBC 13.8 H RBC 2.43 L Hgb 7.6 L Hct 24.0 L MCV 99 H MCH MCHC RDW 18.0 H Plt Count Lymph % (Auto) Seg Neutrophils % Seg Neuts % (Manual) Lymphocytes % (Manual) Nucleated RBC % Seg Neutrophils # Seg Neutrophils # Man Lymphocytes # (Manual) Monocytes # (Manual) PT 15.0 H INR 1.18 H ABG pH POC ABG pCO2 POC ABG pO2 ABG pO2 ABG HCO3 ABG O2 Saturation ABG Base Excess ABG Hemoglobin ABG Oxyhemoglobin ABG Sodium ABG Potassium ABG Chloride ABG Glucose Oxyhemoglobin Carboxyhemoglobin Sodium 154 H Potassium 3.1 L D Chloride 122.1 H Carbon Dioxide BUN 26 H Creatinine 0.4 L Glucose 140 H POC Glucose Lactic Acid Calcium 7.3 L Phosphorus Magnesium Total Creatine Kinase Troponin T Total Protein Albumin Triglycerides LDL Cholesterol Direct HDL Cholesterol Arterial Blood Glucose Arterial Blood Ionized Calcium Urine pH Urine WBC (Auto) Vancomycin Trough Salicylates Acetaminophen Crossmatch 11/11/20 11/11/20 11/12/20 18:39 18:42 00:03 WBC RBC Hgb Hct MCV MCH MCHC RDW Plt Count Lymph % (Auto) Seg Neutrophils % Seg Neuts % (Manual) Lymphocytes % (Manual) Nucleated RBC % Seg Neutrophils # Seg Neutrophils # Man Lymphocytes # (Manual) Monocytes # (Manual) PT INR ABG pH POC ABG pCO2 POC ABG pO2 ABG pO2 ABG HCO3 ABG O2 Saturation ABG Base Excess ABG Hemoglobin ABG Oxyhemoglobin ABG Sodium ABG Potassium ABG Chloride ABG Glucose Oxyhemoglobin Carboxyhemoglobin Sodium Potassium Chloride Carbon Dioxide BUN Creatinine Glucose POC Glucose 45 L 66 L 108 H Lactic Acid Calcium Phosphorus Magnesium Total Creatine Kinase Troponin T Total Protein Albumin Triglycerides LDL Cholesterol Direct HDL Cholesterol Arterial Blood Glucose Arterial Blood Ionized Calcium Urine pH Urine WBC (Auto) Vancomycin Trough Salicylates Acetaminophen Crossmatch 11/12/20 11/12/20 11/12/20 05:44 08:33 08:33 WBC 13.4 H RBC 2.35 L Hgb 7.5 L Hct 23.7 L MCV 101 H MCH MCHC RDW 19.7 H Plt Count Lymph % (Auto) Seg Neutrophils % Seg Neuts % (Manual) Lymphocytes % (Manual) Nucleated RBC % Seg Neutrophils # Seg Neutrophils # Man Lymphocytes # (Manual) Monocytes # (Manual) PT INR ABG pH POC ABG pCO2 POC ABG pO2 ABG pO2 ABG HCO3 ABG O2 Saturation ABG Base Excess ABG Hemoglobin ABG Oxyhemoglobin ABG Sodium ABG Potassium ABG Chloride ABG Glucose Oxyhemoglobin Carboxyhemoglobin Sodium 154 H Potassium 2.9 L* Chloride 121.4 H Carbon Dioxide BUN 26 H Creatinine 0.4 L Glucose 153 H POC Glucose 114 H Lactic Acid Calcium 7.3 L Phosphorus Magnesium Total Creatine Kinase Troponin T Total Protein Albumin Triglycerides LDL Cholesterol Direct HDL Cholesterol Arterial Blood Glucose Arterial Blood Ionized Calcium Urine pH Urine WBC (Auto) Vancomycin Trough Salicylates Acetaminophen Crossmatch 11/12/20 11/12/20 11/13/20 11:38 17:17 05:28 WBC RBC Hgb Hct MCV MCH MCHC RDW Plt Count Lymph % (Auto) Seg Neutrophils % Seg Neuts % (Manual) Lymphocytes % (Manual) Nucleated RBC % Seg Neutrophils # Seg Neutrophils # Man Lymphocytes # (Manual) Monocytes # (Manual) PT INR ABG pH POC ABG pCO2 51.4 H POC ABG pO2 41.7 L ABG pO2 ABG HCO3 ABG O2 Saturation ABG Base Excess ABG Hemoglobin 9.1 L ABG Oxyhemoglobin 72.2 L ABG Sodium 151.1 H ABG Potassium 3.2 L ABG Chloride 122.0 H ABG Glucose 191 H Oxyhemoglobin Carboxyhemoglobin Sodium Potassium Chloride Carbon Dioxide BUN Creatinine Glucose POC Glucose 125 H 127 H Lactic Acid Calcium Phosphorus Magnesium Total Creatine Kinase Troponin T Total Protein Albumin Triglycerides LDL Cholesterol Direct HDL Cholesterol Arterial Blood Glucose 191 H Arterial Blood Ionized Calcium Urine pH Urine WBC (Auto) Vancomycin Trough Salicylates Acetaminophen Crossmatch 11/13/20 11/13/20 11/13/20 10:46 23:15 23:15 WBC 12.2 H RBC 2.41 L Hgb 7.7 L Hct 24.5 L MCV 102 H MCH MCHC RDW 23.0 H Plt Count Lymph % (Auto) Seg Neutrophils % Seg Neuts % (Manual) Lymphocytes % (Manual) Nucleated RBC % Seg Neutrophils # Seg Neutrophils # Man Lymphocytes # (Manual) Monocytes # (Manual) PT INR ABG pH POC ABG pCO2 POC ABG pO2 ABG pO2 ABG HCO3 ABG O2 Saturation ABG Base Excess ABG Hemoglobin ABG Oxyhemoglobin ABG Sodium ABG Potassium ABG Chloride ABG Glucose Oxyhemoglobin Carboxyhemoglobin Sodium Potassium Chloride Carbon Dioxide BUN Creatinine Glucose POC Glucose 153 H Lactic Acid Calcium Phosphorus Magnesium Total Creatine Kinase Troponin T 0.123 H* Total Protein Albumin Triglycerides LDL Cholesterol Direct HDL Cholesterol Arterial Blood Glucose Arterial Blood Ionized Calcium Urine pH Urine WBC (Auto) Vancomycin Trough Salicylates Acetaminophen Crossmatch 11/13/20 11/13/20 11/14/20 23:15 Unknown 05:26 WBC RBC Hgb Hct MCV MCH MCHC RDW Plt Count Lymph % (Auto) Seg Neutrophils % Seg Neuts % (Manual) Lymphocytes % (Manual) Nucleated RBC % Seg Neutrophils # Seg Neutrophils # Man Lymphocytes # (Manual) Monocytes # (Manual) PT INR ABG pH 7.295 L POC ABG pCO2 56.0 H POC ABG pO2 49.1 L ABG pO2 ABG HCO3 ABG O2 Saturation ABG Base Excess ABG Hemoglobin 8.3 L ABG Oxyhemoglobin 77.1 L ABG Sodium 150.5 H ABG Potassium 3.3 L ABG Chloride 121.0 H ABG Glucose 187 H Oxyhemoglobin Carboxyhemoglobin Sodium 152 H Potassium 3.3 L Chloride 117.8 H Carbon Dioxide BUN 25 H Creatinine 0.4 L Glucose 123 H POC Glucose 46 L Lactic Acid Calcium 7.5 L Phosphorus Magnesium Total Creatine Kinase Troponin T Total Protein Albumin Triglycerides LDL Cholesterol Direct HDL Cholesterol Arterial Blood Glucose 187 H Arterial Blood Ionized Calcium Urine pH Urine WBC (Auto) Vancomycin Trough Salicylates Acetaminophen Crossmatch 11/14/20 11/14/20 11/14/20 06:26 22:26 22:26 WBC RBC 2.75 L Hgb 9.0 L Hct 27.8 L MCV 101 H MCH 33 H MCHC RDW 22.8 H Plt Count Lymph % (Auto) Seg Neutrophils % Seg Neuts % (Manual) Lymphocytes % (Manual) Nucleated RBC % Seg Neutrophils # Seg Neutrophils # Man Lymphocytes # (Manual) Monocytes # (Manual) PT INR ABG pH POC ABG pCO2 POC ABG pO2 ABG pO2 ABG HCO3 ABG O2 Saturation ABG Base Excess ABG Hemoglobin ABG Oxyhemoglobin ABG Sodium ABG Potassium ABG Chloride ABG Glucose Oxyhemoglobin Carboxyhemoglobin Sodium 147 H Potassium 3.3 L Chloride 114.3 H Carbon Dioxide BUN 23 H Creatinine 0.3 L Glucose 209 H POC Glucose 135 H Lactic Acid Calcium 7.4 L Phosphorus Magnesium Total Creatine Kinase Troponin T Total Protein Albumin Triglycerides LDL Cholesterol Direct HDL Cholesterol Arterial Blood Glucose Arterial Blood Ionized Calcium Urine pH Urine WBC (Auto) Vancomycin Trough Salicylates Acetaminophen Crossmatch 11/14/20 11/15/20 11/15/20 23:22 04:28 05:57 WBC RBC Hgb Hct MCV MCH MCHC RDW Plt Count Lymph % (Auto) Seg Neutrophils % Seg Neuts % (Manual) Lymphocytes % (Manual) Nucleated RBC % Seg Neutrophils # Seg Neutrophils # Man Lymphocytes # (Manual) Monocytes # (Manual) PT INR ABG pH POC ABG pCO2 POC ABG pO2 ABG pO2 ABG HCO3 ABG O2 Saturation ABG Base Excess ABG Hemoglobin ABG Oxyhemoglobin ABG Sodium ABG Potassium ABG Chloride ABG Glucose Oxyhemoglobin Carboxyhemoglobin Sodium 152 H Potassium Chloride 118.1 H Carbon Dioxide BUN 22 H Creatinine 0.3 L Glucose 190 H POC Glucose 136 H 151 H Lactic Acid Calcium 7.5 L Phosphorus Magnesium Total Creatine Kinase Troponin T Total Protein Albumin Triglycerides LDL Cholesterol Direct HDL Cholesterol Arterial Blood Glucose Arterial Blood Ionized Calcium Urine pH Urine WBC (Auto) Vancomycin Trough Salicylates Acetaminophen Crossmatch 11/15/20 11/15/20 11/15/20 11:40 16:56 21:53 WBC RBC Hgb Hct MCV MCH MCHC RDW Plt Count Lymph % (Auto) Seg Neutrophils % Seg Neuts % (Manual) Lymphocytes % (Manual) Nucleated RBC % Seg Neutrophils # Seg Neutrophils # Man Lymphocytes # (Manual) Monocytes # (Manual) PT INR ABG pH 7.457 H POC ABG pCO2 POC ABG pO2 ABG pO2 48.3 L ABG HCO3 26.1 H ABG O2 Saturation 82.9 L ABG Base Excess ABG Hemoglobin 9.7 L ABG Oxyhemoglobin ABG Sodium ABG Potassium ABG Chloride ABG Glucose Oxyhemoglobin 81.0 L Carboxyhemoglobin Sodium Potassium Chloride Carbon Dioxide BUN Creatinine Glucose POC Glucose 129 H 115 H Lactic Acid Calcium Phosphorus Magnesium Total Creatine Kinase Troponin T Total Protein Albumin Triglycerides LDL Cholesterol Direct HDL Cholesterol Arterial Blood Glucose Arterial Blood Ionized Calcium Urine pH Urine WBC (Auto) Vancomycin Trough Salicylates Acetaminophen Crossmatch 11/15/20 11/16/20 11/16/20 23:12 00:07 00:09 WBC RBC Hgb Hct MCV MCH MCHC RDW Plt Count Lymph % (Auto) Seg Neutrophils % Seg Neuts % (Manual) Lymphocytes % (Manual) Nucleated RBC % Seg Neutrophils # Seg Neutrophils # Man Lymphocytes # (Manual) Monocytes # (Manual) PT INR ABG pH POC ABG pCO2 POC ABG pO2 ABG pO2 95.1 H ABG HCO3 26.6 H ABG O2 Saturation ABG Base Excess ABG Hemoglobin 7.5 L ABG Oxyhemoglobin ABG Sodium ABG Potassium ABG Chloride ABG Glucose Oxyhemoglobin Carboxyhemoglobin Sodium Potassium Chloride Carbon Dioxide BUN Creatinine Glucose POC Glucose 13 L 153 H Lactic Acid Calcium Phosphorus Magnesium Total Creatine Kinase Troponin T Total Protein Albumin Triglycerides LDL Cholesterol Direct HDL Cholesterol Arterial Blood Glucose Arterial Blood Ionized Calcium Urine pH Urine WBC (Auto) Vancomycin Trough Salicylates Acetaminophen Crossmatch 11/16/20 11/16/20 11/16/20 03:43 04:00 04:00 WBC RBC 2.33 L Hgb 7.7 L Hct 24.5 L MCV 105 H MCH 33 H MCHC 31 L RDW 22.9 H Plt Count Lymph % (Auto) Seg Neutrophils % Seg Neuts % (Manual) Lymphocytes % (Manual) Nucleated RBC % Seg Neutrophils # Seg Neutrophils # Man Lymphocytes # (Manual) Monocytes # (Manual) PT INR ABG pH 7.348 L POC ABG pCO2 POC ABG pO2 ABG pO2 91.6 H ABG HCO3 26.3 H ABG O2 Saturation ABG Base Excess ABG Hemoglobin 7.3 L ABG Oxyhemoglobin ABG Sodium ABG Potassium ABG Chloride ABG Glucose Oxyhemoglobin Carboxyhemoglobin Sodium 148 H Potassium 3.5 L Chloride 115.9 H Carbon Dioxide BUN Creatinine 0.4 L Glucose 195 H POC Glucose Lactic Acid Calcium 7.6 L Phosphorus Magnesium Total Creatine Kinase Troponin T Total Protein Albumin Triglycerides LDL Cholesterol Direct HDL Cholesterol Arterial Blood Glucose Arterial Blood Ionized Calcium Urine pH Urine WBC (Auto) Vancomycin Trough Salicylates Acetaminophen Crossmatch 11/16/20 11/16/20 11/16/20 05:16 07:40 12:10 WBC RBC Hgb Hct MCV MCH MCHC RDW Plt Count Lymph % (Auto) Seg Neutrophils % Seg Neuts % (Manual) Lymphocytes % (Manual) Nucleated RBC % Seg Neutrophils # Seg Neutrophils # Man Lymphocytes # (Manual) Monocytes # (Manual) PT INR ABG pH POC ABG pCO2 POC ABG pO2 ABG pO2 ABG HCO3 ABG O2 Saturation ABG Base Excess ABG Hemoglobin ABG Oxyhemoglobin ABG Sodium ABG Potassium ABG Chloride ABG Glucose Oxyhemoglobin Carboxyhemoglobin Sodium Potassium Chloride Carbon Dioxide BUN Creatinine Glucose POC Glucose 61 L 122 H 140 H Lactic Acid Calcium Phosphorus Magnesium Total Creatine Kinase Troponin T Total Protein Albumin Triglycerides LDL Cholesterol Direct HDL Cholesterol Arterial Blood Glucose Arterial Blood Ionized Calcium Urine pH Urine WBC (Auto) Vancomycin Trough Salicylates Acetaminophen Crossmatch 11/16/20 11/16/20 11/17/20 17:14 23:40 04:30 WBC RBC Hgb Hct MCV MCH MCHC RDW Plt Count Lymph % (Auto) Seg Neutrophils % Seg Neuts % (Manual) Lymphocytes % (Manual) Nucleated RBC % Seg Neutrophils # Seg Neutrophils # Man Lymphocytes # (Manual) Monocytes # (Manual) PT INR ABG pH 7.470 H POC ABG pCO2 POC ABG pO2 75.4 L ABG pO2 ABG HCO3 ABG O2 Saturation ABG Base Excess ABG Hemoglobin 7 L ABG Oxyhemoglobin ABG Sodium ABG Potassium ABG Chloride 116.0 H ABG Glucose 161 H Oxyhemoglobin Carboxyhemoglobin Sodium Potassium Chloride Carbon Dioxide BUN Creatinine Glucose POC Glucose 139 H 151 H Lactic Acid Calcium Phosphorus Magnesium Total Creatine Kinase Troponin T Total Protein Albumin Triglycerides LDL Cholesterol Direct HDL Cholesterol Arterial Blood Glucose 161 H Arterial Blood Ionized Calcium Urine pH Urine WBC (Auto) Vancomycin Trough Salicylates Acetaminophen Crossmatch 11/17/20 11/17/20 11/17/20 09:50 09:50 11:10 WBC RBC 2.02 L Hgb 6.6 L Hct 20.2 L MCV 100 H MCH 33 H MCHC RDW 22.4 H Plt Count Lymph % (Auto) Seg Neutrophils % Seg Neuts % (Manual) Lymphocytes % (Manual) Nucleated RBC % Seg Neutrophils # Seg Neutrophils # Man Lymphocytes # (Manual) Monocytes # (Manual) PT INR ABG pH POC ABG pCO2 POC ABG pO2 ABG pO2 ABG HCO3 ABG O2 Saturation ABG Base Excess ABG Hemoglobin ABG Oxyhemoglobin ABG Sodium ABG Potassium ABG Chloride ABG Glucose Oxyhemoglobin Carboxyhemoglobin Sodium Potassium Chloride 111.8 H Carbon Dioxide BUN 23 H Creatinine 0.4 L Glucose 142 H POC Glucose Lactic Acid Calcium 7.3 L Phosphorus Magnesium Total Creatine Kinase Troponin T Total Protein Albumin Triglycerides LDL Cholesterol Direct HDL Cholesterol Arterial Blood Glucose Arterial Blood Ionized Calcium Urine pH Urine WBC (Auto) Vancomycin Trough Salicylates Acetaminophen Crossmatch See Detail 11/17/20 11/17/20 11/17/20 11:52 11:57 23:22 WBC RBC Hgb Hct MCV MCH MCHC RDW Plt Count Lymph % (Auto) Seg Neutrophils % Seg Neuts % (Manual) Lymphocytes % (Manual) Nucleated RBC % Seg Neutrophils # Seg Neutrophils # Man Lymphocytes # (Manual) Monocytes # (Manual) PT INR ABG pH POC ABG pCO2 POC ABG pO2 ABG pO2 ABG HCO3 ABG O2 Saturation ABG Base Excess ABG Hemoglobin ABG Oxyhemoglobin ABG Sodium ABG Potassium ABG Chloride ABG Glucose Oxyhemoglobin Carboxyhemoglobin Sodium Potassium Chloride Carbon Dioxide BUN Creatinine Glucose POC Glucose 42 L 114 H 63 L Lactic Acid Calcium Phosphorus Magnesium Total Creatine Kinase Troponin T Total Protein Albumin Triglycerides LDL Cholesterol Direct HDL Cholesterol Arterial Blood Glucose Arterial Blood Ionized Calcium Urine pH Urine WBC (Auto) Vancomycin Trough Salicylates Acetaminophen Crossmatch 11/17/20 11/18/20 11/18/20 23:27 04:06 04:45 WBC RBC 2.36 L Hgb 7.4 L Hct 23.4 L MCV 99 H MCH MCHC RDW 21.6 H Plt Count Lymph % (Auto) Seg Neutrophils % Seg Neuts % (Manual) Lymphocytes % (Manual) Nucleated RBC % Seg Neutrophils # Seg Neutrophils # Man Lymphocytes # (Manual) Monocytes # (Manual) PT INR ABG pH POC ABG pCO2 POC ABG pO2 67.7 L ABG pO2 ABG HCO3 ABG O2 Saturation ABG Base Excess ABG Hemoglobin 8.3 L ABG Oxyhemoglobin ABG Sodium ABG Potassium ABG Chloride 112.0 H ABG Glucose 143 H Oxyhemoglobin Carboxyhemoglobin Sodium Potassium Chloride Carbon Dioxide BUN Creatinine Glucose POC Glucose 124 H Lactic Acid Calcium Phosphorus Magnesium Total Creatine Kinase Troponin T Total Protein Albumin Triglycerides LDL Cholesterol Direct HDL Cholesterol Arterial Blood Glucose 143 H Arterial Blood Ionized Calcium 4.5 L Urine pH Urine WBC (Auto) Vancomycin Trough Salicylates Acetaminophen Crossmatch 11/18/20 11/18/20 11/18/20 04:45 05:56 23:46 WBC RBC Hgb Hct MCV MCH MCHC RDW Plt Count Lymph % (Auto) Seg Neutrophils % Seg Neuts % (Manual) Lymphocytes % (Manual) Nucleated RBC % Seg Neutrophils # Seg Neutrophils # Man Lymphocytes # (Manual) Monocytes # (Manual) PT INR ABG pH POC ABG pCO2 POC ABG pO2 ABG pO2 ABG HCO3 ABG O2 Saturation ABG Base Excess ABG Hemoglobin ABG Oxyhemoglobin ABG Sodium ABG Potassium ABG Chloride ABG Glucose Oxyhemoglobin Carboxyhemoglobin Sodium Potassium Chloride 107.9 H Carbon Dioxide BUN 23 H Creatinine 0.4 L Glucose 139 H POC Glucose 133 H 66 L Lactic Acid Calcium 7.6 L Phosphorus Magnesium Total Creatine Kinase Troponin T Total Protein Albumin Triglycerides LDL Cholesterol Direct HDL Cholesterol Arterial Blood Glucose Arterial Blood Ionized Calcium Urine pH Urine WBC (Auto) Vancomycin Trough Salicylates Acetaminophen Crossmatch 11/18/20 11/19/20 11/19/20 23:52 05:48 06:36 WBC RBC Hgb Hct MCV MCH MCHC RDW Plt Count Lymph % (Auto) Seg Neutrophils % Seg Neuts % (Manual) Lymphocytes % (Manual) Nucleated RBC % Seg Neutrophils # Seg Neutrophils # Man Lymphocytes # (Manual) Monocytes # (Manual) PT INR ABG pH POC ABG pCO2 POC ABG pO2 ABG pO2 ABG HCO3 ABG O2 Saturation ABG Base Excess ABG Hemoglobin ABG Oxyhemoglobin ABG Sodium ABG Potassium ABG Chloride ABG Glucose Oxyhemoglobin Carboxyhemoglobin Sodium Potassium Chloride Carbon Dioxide BUN 21 H Creatinine 0.4 L Glucose 119 H POC Glucose 118 H 108 H Lactic Acid Calcium 7.8 L Phosphorus Magnesium Total Creatine Kinase Troponin T Total Protein Albumin Triglycerides LDL Cholesterol Direct HDL Cholesterol Arterial Blood Glucose Arterial Blood Ionized Calcium Urine pH Urine WBC (Auto) Vancomycin Trough Salicylates Acetaminophen Crossmatch 11/19/20 11/19/20 11/19/20 06:36 06:36 18:15 WBC RBC 2.79 L Hgb 9.0 L Hct 27.8 L MCV 100 H MCH MCHC RDW 20.7 H Plt Count Lymph % (Auto) Seg Neutrophils % Seg Neuts % (Manual) Lymphocytes % (Manual) Nucleated RBC % Seg Neutrophils # Seg Neutrophils # Man Lymphocytes # (Manual) Monocytes # (Manual) PT INR 1.15 H ABG pH POC ABG pCO2 POC ABG pO2 ABG pO2 ABG HCO3 ABG O2 Saturation ABG Base Excess ABG Hemoglobin ABG Oxyhemoglobin ABG Sodium ABG Potassium ABG Chloride ABG Glucose Oxyhemoglobin Carboxyhemoglobin Sodium Potassium Chloride Carbon Dioxide BUN Creatinine Glucose POC Glucose 115 H Lactic Acid Calcium Phosphorus Magnesium Total Creatine Kinase Troponin T Total Protein Albumin Triglycerides LDL Cholesterol Direct HDL Cholesterol Arterial Blood Glucose Arterial Blood Ionized Calcium Urine pH Urine WBC (Auto) Vancomycin Trough Salicylates Acetaminophen Crossmatch 11/19/20 11/19/20 11/20/20 23:27 Unknown 04:56 WBC RBC Hgb Hct MCV MCH MCHC RDW Plt Count Lymph % (Auto) Seg Neutrophils % Seg Neuts % (Manual) Lymphocytes % (Manual) Nucleated RBC % Seg Neutrophils # Seg Neutrophils # Man Lymphocytes # (Manual) Monocytes # (Manual) PT INR ABG pH 7.457 H POC ABG pCO2 POC ABG pO2 57.4 L ABG pO2 72.4 L ABG HCO3 26.9 H ABG O2 Saturation ABG Base Excess ABG Hemoglobin 8.5 L 9.6 L ABG Oxyhemoglobin 90.1 L ABG Sodium ABG Potassium ABG Chloride 109.0 H ABG Glucose 142 H Oxyhemoglobin 94.1 L Carboxyhemoglobin Sodium Potassium Chloride Carbon Dioxide BUN Creatinine Glucose POC Glucose 129 H Lactic Acid Calcium Phosphorus Magnesium Total Creatine Kinase Troponin T Total Protein Albumin Triglycerides LDL Cholesterol Direct HDL Cholesterol Arterial Blood Glucose 142 H Arterial Blood Ionized Calcium Urine pH Urine WBC (Auto) Vancomycin Trough Salicylates Acetaminophen Crossmatch 11/20/20 11/20/20 11/20/20 05:07 05:45 05:45 WBC 11.7 H RBC 2.74 L Hgb 8.9 L Hct 26.3 L MCV 96 H MCH 33 H MCHC RDW 18.6 H Plt Count Lymph % (Auto) Seg Neutrophils % Seg Neuts % (Manual) Lymphocytes % (Manual) Nucleated RBC % Seg Neutrophils # Seg Neutrophils # Man Lymphocytes # (Manual) Monocytes # (Manual) PT INR ABG pH POC ABG pCO2 POC ABG pO2 ABG pO2 ABG HCO3 ABG O2 Saturation ABG Base Excess ABG Hemoglobin ABG Oxyhemoglobin ABG Sodium ABG Potassium ABG Chloride ABG Glucose Oxyhemoglobin Carboxyhemoglobin Sodium Potassium Chloride Carbon Dioxide 31 H BUN Creatinine 0.4 L Glucose 127 H POC Glucose 129 H Lactic Acid Calcium 8.0 L Phosphorus Magnesium Total Creatine Kinase Troponin T Total Protein Albumin Triglycerides LDL Cholesterol Direct HDL Cholesterol Arterial Blood Glucose Arterial Blood Ionized Calcium Urine pH Urine WBC (Auto) Vancomycin Trough Salicylates Acetaminophen Crossmatch 11/20/20 11/20/20 11/21/20 12:02 17:52 00:02 WBC RBC Hgb Hct MCV MCH MCHC RDW Plt Count Lymph % (Auto) Seg Neutrophils % Seg Neuts % (Manual) Lymphocytes % (Manual) Nucleated RBC % Seg Neutrophils # Seg Neutrophils # Man Lymphocytes # (Manual) Monocytes # (Manual) PT INR ABG pH POC ABG pCO2 POC ABG pO2 ABG pO2 ABG HCO3 ABG O2 Saturation ABG Base Excess ABG Hemoglobin ABG Oxyhemoglobin ABG Sodium ABG Potassium ABG Chloride ABG Glucose Oxyhemoglobin Carboxyhemoglobin Sodium Potassium Chloride Carbon Dioxide BUN Creatinine Glucose POC Glucose 134 H 115 H 116 H Lactic Acid Calcium Phosphorus Magnesium Total Creatine Kinase Troponin T Total Protein Albumin Triglycerides LDL Cholesterol Direct HDL Cholesterol Arterial Blood Glucose Arterial Blood Ionized Calcium Urine pH Urine WBC (Auto) Vancomycin Trough Salicylates Acetaminophen Crossmatch 11/21/20 11/21/20 11/21/20 03:23 04:00 05:14 WBC RBC Hgb Hct MCV MCH MCHC RDW Plt Count Lymph % (Auto) Seg Neutrophils % Seg Neuts % (Manual) Lymphocytes % (Manual) Nucleated RBC % Seg Neutrophils # Seg Neutrophils # Man Lymphocytes # (Manual) Monocytes # (Manual) PT INR ABG pH 7.479 H POC ABG pCO2 POC ABG pO2 73.7 L ABG pO2 ABG HCO3 ABG O2 Saturation ABG Base Excess ABG Hemoglobin 9.4 L ABG Oxyhemoglobin ABG Sodium ABG Potassium ABG Chloride 108.0 H ABG Glucose 135 H Oxyhemoglobin Carboxyhemoglobin Sodium Potassium Chloride Carbon Dioxide 34 H BUN Creatinine 0.4 L Glucose 125 H POC Glucose 116 H Lactic Acid Calcium 7.9 L Phosphorus Magnesium Total Creatine Kinase Troponin T Total Protein Albumin Triglycerides LDL Cholesterol Direct HDL Cholesterol Arterial Blood Glucose 135 H Arterial Blood Ionized Calcium 4.5 L Urine pH Urine WBC (Auto) Vancomycin Trough Salicylates Acetaminophen Crossmatch 11/22/20 11/22/20 11/22/20 04:00 04:00 05:34 WBC 12.2 H RBC 2.74 L Hgb 8.7 L Hct 27.4 L MCV 100 H MCH MCHC RDW 19.2 H Plt Count Lymph % (Auto) Seg Neutrophils % Seg Neuts % (Manual) Lymphocytes % (Manual) Nucleated RBC % Seg Neutrophils # Seg Neutrophils # Man Lymphocytes # (Manual) Monocytes # (Manual) PT INR ABG pH POC ABG pCO2 POC ABG pO2 ABG pO2 ABG HCO3 ABG O2 Saturation ABG Base Excess ABG Hemoglobin ABG Oxyhemoglobin ABG Sodium ABG Potassium ABG Chloride ABG Glucose Oxyhemoglobin Carboxyhemoglobin Sodium Potassium Chloride Carbon Dioxide BUN Creatinine 0.4 L Glucose POC Glucose 58 L Lactic Acid Calcium 7.7 L Phosphorus Magnesium Total Creatine Kinase Troponin T Total Protein Albumin Triglycerides LDL Cholesterol Direct HDL Cholesterol Arterial Blood Glucose Arterial Blood Ionized Calcium Urine pH Urine WBC (Auto) Vancomycin Trough Salicylates Acetaminophen Crossmatch Allied health notes reviewed: nursing
[2020-11-22] MEDS ORDERED: FUROSEMIDE 20 MG/2 ML INJ IV ONE (12:23)
[2020-11-22] MEDS: SODIUM HYPOCHLORITE, DAKIN'S 1/2 STRENGTH (0.25%) 473 ML TOPICAL SOLN TP SCH ×2 (12:49→22:22)
[2020-11-22] MEDS: MIDODRINE 5 MG TAB PO SCH ×3 (12:50→15:41)
[2020-11-22] MEDS: VANCOMYCIN 2,000 MG in SODIUM CHLORIDE 0.9% 500 ML 500 ML IV SCH (12:51)
[2020-11-22] MEDS: FAMOTIDINE 20 MG/2 ML INJ IV SCH ×2 (12:56→22:22)
[2020-11-22] MEDS: fentaNYL DRIP Premix 2,000 MCG/100 ML BAG IV SCH (15:33)
--- NOTE | 2020-11-22 18:12 | Progress Note ---
Assessment and Plan Continue IV amiodarone for control of atrial flutter. Once enteralk intake is resumed, will switch to PO amiodarone. - Patient Problems (1) Atrial fibrillation with RVR Current Visit: Yes Status: Acute (2) Acute respiratory failure Current Visit: Yes Status: Acute (3) AMS (altered mental status) Current Visit: Yes Status: Acute (4) Bilateral pneumonia Current Visit: Yes Status: Acute (5) Sepsis Current Visit: Yes Status: Acute (6) Anemia Current Visit: Yes Status: Acute Subjective Date of service: 11/22/20 Principal diagnosis: Acute Resp Fail, PNA, Septic Shock, Sacral Ulcer, AF with RVR Interval history: Awake. In atrial flutter with variable ventricular response. Objective Vital Signs Temp Pulse Pulse Pulse Resp Resp BP 11/22/20 17:30 100 H 23 109/64 11/22/20 17:00 112 H 22 113/60 11/22/20 16:30 109 H 20 124/73 11/22/20 16:00 113 H 13 134/65 11/22/20 15:51 109 H 124/75 11/22/20 15:31 117 H 19 100/79 11/22/20 15:00 114 H 15 124/75 11/22/20 14:31 122 H 13 121/80 11/22/20 14:19 120 H 20 11/22/20 14:00 129 H 15 135/106 11/22/20 13:31 117 H 14 143/80 11/22/20 13:00 114 H 9 L 116/83 11/22/20 12:30 107 H 17 143/72 11/22/20 12:00 98.6 F 109 H 118 H 18 136/83 11/22/20 11:38 99 H 134/79 11/22/20 11:30 106 H 20 127/91 11/22/20 11:00 104 H 20 147/88 11/22/20 10:30 103 H 20 140/85 11/22/20 10:00 100 H 20 131/75 11/22/20 09:30 104 H 20 125/71 11/22/20 09:00 113 H 15 146/89 11/22/20 08:30 100 H 17 118/89 11/22/20 08:25 106 H 101 H 21 142/87 11/22/20 08:00 99.4 F 118 H 105 H 17 142/77 11/22/20 07:30 118 H 13 153/95 11/22/20 07:00 117 H 19 143/95 11/22/20 06:30 113 H 17 168/93 11/22/20 06:00 111 H 21 161/99 11/22/20 05:30 113 H 16 142/85 11/22/20 05:00 110 H 20 135/79 11/22/20 04:43 100 H 145/77 11/22/20 04:30 108 H 17 138/84 11/22/20 04:01 99.5 F 11/22/20 04:00 110 H 99 H 17 134/78 11/22/20 03:30 112 H 20 152/113 11/22/20 03:00 108 H 21 136/86 11/22/20 02:30 106 H 20 147/90 11/22/20 02:00 112 H 20 146/92 11/22/20 01:30 109 H 20 144/96 11/22/20 01:07 111 H 145/99 11/22/20 01:00 113 H 21 155/95 11/22/20 00:30 101 H 20 144/93 11/22/20 00:00 112 H 99 H 20 141/91 11/21/20 23:55 99.2 F 11/21/20 23:30 121 H 21 139/97 11/21/20 23:00 121 H 17 141/90 11/21/20 22:30 117 H 17 149/81 11/21/20 22:00 109 H 21 140/76 11/21/20 21:54 109 H 18 134/76 11/21/20 21:34 114 H 117 H 20 129/83 11/21/20 21:30 123 H 20 144/101 11/21/20 21:00 120 H 20 143/93 11/21/20 20:30 123 H 18 127/71 11/21/20 20:00 110 H 99 H 20 128/75 11/21/20 19:45 98.6 F 11/21/20 19:30 111 H 14 116/75 11/21/20 19:00 115 H 15 129/85 11/21/20 18:30 101 H 20 124/78 11/21/20 18:15 106 H 20 119/74 Last Vital Signs Temp 98.6 F 11/22/20 12:00 Pulse 100 H 11/22/20 17:30 Resp 23 11/22/20 17:30 BP 109/64 11/22/20 17:30 Pulse Ox 100 11/22/20 17:30 - Physical Examination General: No Apparent Distress, Other (intubated) HEENT: Positive: EOMI, Normocephaly, Mucus Membranes Moist Neck: Positive: neck supple, trachea midline Cardiac: Positive: Irregularly Regular, S1/S2 Lungs: Positive: clear to auscultation Neuro: Positive: Other (lethargic) Abdomen: Positive: Soft, Active Bowel Sounds. Negative: Tender Skin: Positive: Wound (sacral). Negative: Rash Musculoskeletal: No Pain Extremities: Present: +2 Edema (Bilateral leg edema), Other (chronic skin changes noted) - Labs and Meds CBC 11/22/20 Range/Units 04:00 WBC 12.2 H (4.5-11.0) K/mm3 RBC 2.74 L (3.65-5.03) M/mm3 Hgb 8.7 L (11.8-15.2) gm/dl Hct 27.4 L (35.5-45.6) % Plt Count 371 (140-440) K/mm3 Comprehensive Metabolic Panel 11/22/20 Range/Units 04:00 Sodium 137 (137-145) mmol/L Potassium 3.9 (3.6-5.0) mmol/L Chloride 103.3 (98-107) mmol/L Carbon Dioxide 27 D (22-30) mmol/L BUN 16 (9-20) mg/dL Creatinine 0.4 L (0.8-1.3) mg/dL Glucose 84 (75-100) mg/dL Calcium 7.7 L (8.4-10.2) mg/dL - Imaging and Cardiology EKG: report reviewed, image reviewed Echo: report reviewed (10/28/2020- EF 55-60%, no significant valvular abnormalities) - Telemetry EKG Rhythm: Atrial Flutter (With variable ventricular rate) Repolarization changes or abnormalities: nonspecific abnormality, ST segment, and/or T wave - Allied health notes Allied health notes reviewed: nursing
[2020-11-22] MEDS: ENOXAPARIN 40 MG/0.4 ML INJ SUB-Q SCH (22:21)
[2020-11-23] MEDS: fentaNYL DRIP Premix 2,000 MCG/100 ML BAG IV SCH ×2 (06:33→16:48)
[2020-11-23] MEDS: VANCOMYCIN 250 MG/10 ML ORAL LIQD PO SCH ×5 (06:34→18:36)
[2020-11-23] MEDS: ALBUTEROL 2.5 MG/3 ML NEBU IH SCH ×3 (08:15→20:18)
[2020-11-23] MEDS: MIDODRINE 5 MG TAB PO SCH ×3 (08:50→16:49)
--- NOTE | 2020-11-23 08:50 | Progress Note ---
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 Seg Neutrophils # Seg Neutrophils # Man Lymphocytes # (Manual) Monocytes # (Manual) PT INR ABG pH 7.517 H POC ABG pCO2 25.7 L POC ABG pO2 52.3 L ABG pO2 ABG HCO3 ABG O2 Saturation ABG Base Excess ABG Hemoglobin ABG Oxyhemoglobin 90.8 L ABG Sodium ABG Potassium ABG Chloride 109.0 H ABG Glucose 147 H Oxyhemoglobin Carboxyhemoglobin Sodium Potassium Chloride Carbon Dioxide BUN Creatinine Glucose POC Glucose Lactic Acid Calcium Phosphorus Magnesium Total Creatine Kinase Troponin T Total Protein Albumin Triglycerides LDL Cholesterol Direct HDL Cholesterol Arterial Blood Glucose 147 H Arterial Blood Ionized Calcium 4.0 L Urine pH Urine WBC (Auto) Vancomycin Trough Salicylates Acetaminophen Crossmatch 10/31/20 10/31/20 10/31/20 04:37 04:37 05:08 WBC 21.7 H RBC Hgb Hct MCV MCH MCHC RDW 16.1 H Plt Count 39 L Lymph % (Auto) Seg Neutrophils % Seg Neuts % (Manual) Lymphocytes % (Manual) Nucleated RBC % Seg Neutrophils # Seg Neutrophils # Man Lymphocytes # (Manual) Monocytes # (Manual) PT INR ABG pH POC ABG pCO2 POC ABG pO2 ABG pO2 ABG HCO3 ABG O2 Saturation ABG Base Excess ABG Hemoglobin ABG Oxyhemoglobin ABG Sodium ABG Potassium ABG Chloride ABG Glucose Oxyhemoglobin Carboxyhemoglobin Sodium Potassium Chloride 108.4 H Carbon Dioxide BUN 25 H Creatinine 0.5 L Glucose 140 H POC Glucose 140 H Lactic Acid Calcium 6.1 L Phosphorus Magnesium 1.50 L Total Creatine Kinase Troponin T Total Protein Albumin Triglycerides LDL Cholesterol Direct HDL Cholesterol Arterial Blood Glucose Arterial Blood Ionized Calcium Urine pH Urine WBC (Auto) Vancomycin Trough Salicylates Acetaminophen Crossmatch 10/31/20 10/31/20 10/31/20 11:12 18:50 23:21 WBC RBC Hgb Hct MCV MCH MCHC RDW Plt Count Lymph % (Auto) Seg Neutrophils % Seg Neuts % (Manual) Lymphocytes % (Manual) Nucleated RBC % Seg Neutrophils # Seg Neutrophils # Man Lymphocytes # (Manual) Monocytes # (Manual) PT INR ABG pH POC ABG pCO2 POC ABG pO2 ABG pO2 ABG HCO3 ABG O2 Saturation ABG Base Excess ABG Hemoglobin ABG Oxyhemoglobin ABG Sodium ABG Potassium ABG Chloride ABG Glucose Oxyhemoglobin Carboxyhemoglobin Sodium Potassium Chloride Carbon Dioxide BUN Creatinine Glucose POC Glucose 125 H 142 H 127 H Lactic Acid Calcium Phosphorus Magnesium Total Creatine Kinase Troponin T Total Protein Albumin Triglycerides LDL Cholesterol Direct HDL Cholesterol Arterial Blood Glucose Arterial Blood Ionized Calcium Urine pH Urine WBC (Auto) Vancomycin Trough Salicylates Acetaminophen Crossmatch 10/31/20 11/01/20 11/01/20 Unknown 03:40 04:21 WBC RBC Hgb Hct MCV MCH MCHC RDW Plt Count Lymph % (Auto) Seg Neutrophils % Seg Neuts % (Manual) Lymphocytes % (Manual) Nucleated RBC % Seg Neutrophils # Seg Neutrophils # Man Lymphocytes # (Manual) Monocytes # (Manual) PT INR ABG pH 7.489 H POC ABG pCO2 POC ABG pO2 ABG pO2 77.2 L ABG HCO3 ABG O2 Saturation ABG Base Excess ABG Hemoglobin 7.1 L ABG Oxyhemoglobin ABG Sodium ABG Potassium ABG Chloride ABG Glucose Oxyhemoglobin Carboxyhemoglobin Sodium Potassium 3.1 L Chloride 107.1 H Carbon Dioxide BUN 25 H Creatinine 0.5 L Glucose 148 H POC Glucose Lactic Acid 4.30 H* Calcium 6.0 L Phosphorus Magnesium Total Creatine Kinase Troponin T Total Protein Albumin Triglycerides LDL Cholesterol Direct HDL Cholesterol Arterial Blood Glucose Arterial Blood Ionized Calcium Urine pH Urine WBC (Auto) Vancomycin Trough Salicylates Acetaminophen Crossmatch 11/01/20 11/01/20 11/01/20 05:13 11:42 17:38 WBC RBC Hgb Hct MCV MCH MCHC RDW Plt Count Lymph % (Auto) Seg Neutrophils % Seg Neuts % (Manual) Lymphocytes % (Manual) Nucleated RBC % Seg Neutrophils # Seg Neutrophils # Man Lymphocytes # (Manual) Monocytes # (Manual) PT INR ABG pH POC ABG pCO2 POC ABG pO2 ABG pO2 ABG HCO3 ABG O2 Saturation ABG Base Excess ABG Hemoglobin ABG Oxyhemoglobin ABG Sodium ABG Potassium ABG Chloride ABG Glucose Oxyhemoglobin Carboxyhemoglobin Sodium Potassium Chloride Carbon Dioxide BUN Creatinine Glucose POC Glucose 139 H 139 H 161 H Lactic Acid Calcium Phosphorus Magnesium Total Creatine Kinase Troponin T Total Protein Albumin Triglycerides LDL Cholesterol Direct HDL Cholesterol Arterial Blood Glucose Arterial Blood Ionized Calcium Urine pH Urine WBC (Auto) Vancomycin Trough Salicylates Acetaminophen Crossmatch 11/01/20 11/01/20 11/02/20 23:20 Unknown 04:30 WBC 18.2 H RBC 3.27 L Hgb 9.9 L Hct 30.1 L D MCV MCH MCHC RDW 15.7 H Plt Count 34 L Lymph % (Auto) Seg Neutrophils % Seg Neuts % (Manual) Lymphocytes % (Manual) Nucleated RBC % Seg Neutrophils # Seg Neutrophils # Man Lymphocytes # (Manual) Monocytes # (Manual) PT INR ABG pH 7.456 H POC ABG pCO2 POC ABG pO2 ABG pO2 ABG HCO3 ABG O2 Saturation ABG Base Excess ABG Hemoglobin 9.2 L ABG Oxyhemoglobin ABG Sodium ABG Potassium ABG Chloride ABG Glucose Oxyhemoglobin Carboxyhemoglobin Sodium Potassium Chloride Carbon Dioxide BUN Creatinine Glucose POC Glucose 168 H Lactic Acid Calcium Phosphorus Magnesium Total Creatine Kinase Troponin T Total Protein Albumin Triglycerides LDL Cholesterol Direct HDL Cholesterol Arterial Blood Glucose Arterial Blood Ionized Calcium Urine pH Urine WBC (Auto) Vancomycin Trough Salicylates Acetaminophen Crossmatch 11/02/20 11/02/20 11/02/20 06:29 08:40 08:40 WBC 16.6 H RBC 2.87 L Hgb 8.8 L Hct 26.6 L MCV MCH MCHC RDW 15.8 H Plt Count 30 L Lymph % (Auto) Seg Neutrophils % Seg Neuts % (Manual) 97.0 H Lymphocytes % (Manual) 2.0 L Nucleated RBC % 1.0 H Seg Neutrophils # Seg Neutrophils # Man 16.1 H Lymphocytes # (Manual) 0.3 L Monocytes # (Manual) PT INR ABG pH POC ABG pCO2 POC ABG pO2 ABG pO2 ABG HCO3 ABG O2 Saturation ABG Base Excess ABG Hemoglobin ABG Oxyhemoglobin ABG Sodium ABG Potassium ABG Chloride ABG Glucose Oxyhemoglobin Carboxyhemoglobin Sodium Potassium 2.4 L* D Chloride 110.2 H Carbon Dioxide BUN 23 H Creatinine 0.4 L Glucose 154 H POC Glucose 131 H Lactic Acid Calcium 6.1 L Phosphorus Magnesium 1.50 L Total Creatine Kinase Troponin T Total Protein Albumin Triglycerides LDL Cholesterol Direct HDL Cholesterol Arterial Blood Glucose Arterial Blood Ionized Calcium Urine pH Urine WBC (Auto) Vancomycin Trough Salicylates Acetaminophen Crossmatch 11/02/20 11/02/20 11/02/20 13:17 17:25 18:05 WBC RBC Hgb Hct MCV MCH MCHC RDW Plt Count Lymph % (Auto) Seg Neutrophils % Seg Neuts % (Manual) Lymphocytes % (Manual) Nucleated RBC % Seg Neutrophils # Seg Neutrophils # Man Lymphocytes # (Manual) Monocytes # (Manual) PT INR ABG pH POC ABG pCO2 POC ABG pO2 ABG pO2 ABG HCO3 ABG O2 Saturation ABG Base Excess ABG Hemoglobin ABG Oxyhemoglobin ABG Sodium ABG Potassium ABG Chloride ABG Glucose Oxyhemoglobin Carboxyhemoglobin Sodium Potassium 3.1 L D Chloride Carbon Dioxide BUN Creatinine Glucose POC Glucose 134 H 140 H Lactic Acid Calcium Phosphorus Magnesium Total Creatine Kinase Troponin T Total Protein Albumin Triglycerides LDL Cholesterol Direct HDL Cholesterol Arterial Blood Glucose Arterial Blood Ionized Calcium Urine pH Urine WBC (Auto) Vancomycin Trough Salicylates Acetaminophen Crossmatch 11/02/20 11/03/20 11/03/20 23:36 04:15 05:07 WBC RBC Hgb Hct MCV MCH MCHC RDW Plt Count Lymph % (Auto) Seg Neutrophils % Seg Neuts % (Manual) Lymphocytes % (Manual) Nucleated RBC % Seg Neutrophils # Seg Neutrophils # Man Lymphocytes # (Manual) Monocytes # (Manual) PT INR ABG pH POC ABG pCO2 POC ABG pO2 ABG pO2 ABG HCO3 ABG O2 Saturation ABG Base Excess ABG Hemoglobin ABG Oxyhemoglobin ABG Sodium ABG Potassium ABG Chloride ABG Glucose Oxyhemoglobin Carboxyhemoglobin Sodium Potassium 3.0 L Chloride 111.8 H Carbon Dioxide BUN 24 H Creatinine 0.3 L Glucose 141 H POC Glucose 127 H 156 H Lactic Acid Calcium 5.8 L* Phosphorus Magnesium 1.60 L Total Creatine Kinase Troponin T Total Protein Albumin Triglycerides LDL Cholesterol Direct HDL Cholesterol Arterial Blood Glucose Arterial Blood Ionized Calcium Urine pH Urine WBC (Auto) Vancomycin Trough Salicylates Acetaminophen Crossmatch 11/03/20 11/03/20 11/04/20 11:14 17:31 00:17 WBC RBC Hgb Hct MCV MCH MCHC RDW Plt Count Lymph % (Auto) Seg Neutrophils % Seg Neuts % (Manual) Lymphocytes % (Manual) Nucleated RBC % Seg Neutrophils # Seg Neutrophils # Man Lymphocytes # (Manual) Monocytes # (Manual) PT INR ABG pH POC ABG pCO2 POC ABG pO2 ABG pO2 ABG HCO3 ABG O2 Saturation ABG Base Excess ABG Hemoglobin ABG Oxyhemoglobin ABG Sodium ABG Potassium ABG Chloride ABG Glucose Oxyhemoglobin Carboxyhemoglobin Sodium Potassium Chloride Carbon Dioxide BUN Creatinine Glucose POC Glucose 137 H 151 H 156 H Lactic Acid Calcium Phosphorus Magnesium Total Creatine Kinase Troponin T Total Protein Albumin Triglycerides LDL Cholesterol Direct HDL Cholesterol Arterial Blood Glucose Arterial Blood Ionized Calcium Urine pH Urine WBC (Auto) Vancomycin Trough Salicylates Acetaminophen Crossmatch 11/04/20 11/04/20 11/04/20 05:34 05:34 11:16 WBC 21.9 H RBC 2.67 L Hgb 8.2 L Hct 24.8 L MCV MCH MCHC RDW 15.6 H Plt Count 48 L Lymph % (Auto) Seg Neutrophils % Seg Neuts % (Manual) Lymphocytes % (Manual) Nucleated RBC % Seg Neutrophils # Seg Neutrophils # Man Lymphocytes # (Manual) Monocytes # (Manual) PT INR ABG pH POC ABG pCO2 POC ABG pO2 ABG pO2 ABG HCO3 ABG O2 Saturation ABG Base Excess ABG Hemoglobin ABG Oxyhemoglobin ABG Sodium ABG Potassium ABG Chloride ABG Glucose Oxyhemoglobin Carboxyhemoglobin Sodium 146 H Potassium Chloride 114.6 H Carbon Dioxide BUN 29 H Creatinine 0.3 L Glucose 173 H POC Glucose 156 H Lactic Acid Calcium 5.7 L* Phosphorus Magnesium Total Creatine Kinase Troponin T Total Protein Albumin Triglycerides LDL Cholesterol Direct HDL Cholesterol Arterial Blood Glucose Arterial Blood Ionized Calcium Urine pH Urine WBC (Auto) Vancomycin Trough Salicylates Acetaminophen Crossmatch 11/04/20 11/04/20 11/04/20 11:42 17:18 23:12 WBC RBC Hgb Hct MCV MCH MCHC RDW Plt Count Lymph % (Auto) Seg Neutrophils % Seg Neuts % (Manual) Lymphocytes % (Manual) Nucleated RBC % Seg Neutrophils # Seg Neutrophils # Man Lymphocytes # (Manual) Monocytes # (Manual) PT INR ABG pH 7.525 H POC ABG pCO2 28.9 L POC ABG pO2 64.3 L ABG pO2 ABG HCO3 ABG O2 Saturation ABG Base Excess ABG Hemoglobin 8.2 L ABG Oxyhemoglobin ABG Sodium ABG Potassium 3.3 L ABG Chloride 115.0 H ABG Glucose 165 H Oxyhemoglobin Carboxyhemoglobin Sodium Potassium Chloride Carbon Dioxide BUN Creatinine Glucose POC Glucose 144 H 155 H Lactic Acid Calcium Phosphorus Magnesium Total Creatine Kinase Troponin T Total Protein Albumin Triglycerides LDL Cholesterol Direct HDL Cholesterol Arterial Blood Glucose 165 H Arterial Blood Ionized Calcium 4.0 L Urine pH Urine WBC (Auto) Vancomycin Trough Salicylates Acetaminophen Crossmatch 11/05/20 11/05/20 11/05/20 04:48 04:48 05:57 WBC 17.4 H RBC 2.49 L Hgb 7.8 L Hct 23.5 L MCV MCH MCHC RDW 16.0 H Plt Count 69 L Lymph % (Auto) Seg Neutrophils % Seg Neuts % (Manual) Lymphocytes % (Manual) Nucleated RBC % Seg Neutrophils # Seg Neutrophils # Man Lymphocytes # (Manual) Monocytes # (Manual) PT INR ABG pH POC ABG pCO2 POC ABG pO2 ABG pO2 ABG HCO3 ABG O2 Saturation ABG Base Excess ABG Hemoglobin ABG Oxyhemoglobin ABG Sodium ABG Potassium ABG Chloride ABG Glucose Oxyhemoglobin Carboxyhemoglobin Sodium 147 H Potassium 3.5 L Chloride 115.4 H Carbon Dioxide BUN 34 H Creatinine 0.3 L Glucose 154 H POC Glucose 146 H Lactic Acid Calcium 6.1 L Phosphorus 2.00 L Magnesium Total Creatine Kinase Troponin T Total Protein Albumin Triglycerides LDL Cholesterol Direct HDL Cholesterol Arterial Blood Glucose Arterial Blood Ionized Calcium Urine pH Urine WBC (Auto) Vancomycin Trough Salicylates Acetaminophen Crossmatch 11/05/20 11/05/20 11/05/20 11:33 17:52 23:37 WBC RBC Hgb Hct MCV MCH MCHC RDW Plt Count Lymph % (Auto) Seg Neutrophils % Seg Neuts % (Manual) Lymphocytes % (Manual) Nucleated RBC % Seg Neutrophils # Seg Neutrophils # Man Lymphocytes # (Manual) Monocytes # (Manual) PT INR ABG pH POC ABG pCO2 POC ABG pO2 ABG pO2 ABG HCO3 ABG O2 Saturation ABG Base Excess ABG Hemoglobin ABG Oxyhemoglobin ABG Sodium ABG Potassium ABG Chloride ABG Glucose Oxyhemoglobin Carboxyhemoglobin Sodium Potassium Chloride Carbon Dioxide BUN Creatinine Glucose POC Glucose 144 H 136 H 151 H Lactic Acid Calcium Phosphorus Magnesium Total Creatine Kinase Troponin T Total Protein Albumin Triglycerides LDL Cholesterol Direct HDL Cholesterol Arterial Blood Glucose Arterial Blood Ionized Calcium Urine pH Urine WBC (Auto) Vancomycin Trough Salicylates Acetaminophen Crossmatch 11/06/20 11/06/20 11/06/20 05:36 06:45 06:45 WBC 15.0 H RBC 2.33 L Hgb 7.2 L Hct 22.1 L MCV 95 H MCH MCHC RDW 16.2 H Plt Count 103 L Lymph % (Auto) Seg Neutrophils % Seg Neuts % (Manual) Lymphocytes % (Manual) Nucleated RBC % Seg Neutrophils # Seg Neutrophils # Man Lymphocytes # (Manual) Monocytes # (Manual) PT INR ABG pH POC ABG pCO2 POC ABG pO2 ABG pO2 ABG HCO3 ABG O2 Saturation ABG Base Excess ABG Hemoglobin ABG Oxyhemoglobin ABG Sodium ABG Potassium ABG Chloride ABG Glucose Oxyhemoglobin Carboxyhemoglobin Sodium 148 H Potassium Chloride 118.2 H Carbon Dioxide BUN 32 H Creatinine 0.4 L Glucose 153 H POC Glucose 140 H Lactic Acid Calcium 6.4 L Phosphorus 0.90 L* D Magnesium Total Creatine Kinase Troponin T Total Protein 5.0 L Albumin 1.4 L Triglycerides LDL Cholesterol Direct HDL Cholesterol Arterial Blood Glucose Arterial Blood Ionized Calcium Urine pH Urine WBC (Auto) Vancomycin Trough Salicylates Acetaminophen Crossmatch 11/06/20 11/06/20 11/06/20 11:32 17:37 23:19 WBC RBC Hgb Hct MCV MCH MCHC RDW Plt Count Lymph % (Auto) Seg Neutrophils % Seg Neuts % (Manual) Lymphocytes % (Manual) Nucleated RBC % Seg Neutrophils # Seg Neutrophils # Man Lymphocytes # (Manual) Monocytes # (Manual) PT INR ABG pH POC ABG pCO2 POC ABG pO2 ABG pO2 ABG HCO3 ABG O2 Saturation ABG Base Excess ABG Hemoglobin ABG Oxyhemoglobin ABG Sodium ABG Potassium ABG Chloride ABG Glucose Oxyhemoglobin Carboxyhemoglobin Sodium Potassium Chloride Carbon Dioxide BUN Creatinine Glucose POC Glucose 132 H 133 H 145 H Lactic Acid Calcium Phosphorus Magnesium Total Creatine Kinase Troponin T Total Protein Albumin Triglycerides LDL Cholesterol Direct HDL Cholesterol Arterial Blood Glucose Arterial Blood Ionized Calcium Urine pH Urine WBC (Auto) Vancomycin Trough Salicylates Acetaminophen Crossmatch 11/07/20 11/07/20 11/07/20 12:55 16:45 16:45 WBC 12.0 H RBC 3.63 L Hgb 11.4 L D Hct MCV 104 H MCH MCHC 30 L RDW 18.0 H Plt Count 133 L Lymph % (Auto) Seg Neutrophils % Seg Neuts % (Manual) Lymphocytes % (Manual) Nucleated RBC % Seg Neutrophils # Seg Neutrophils # Man Lymphocytes # (Manual) Monocytes # (Manual) PT INR ABG pH POC ABG pCO2 POC ABG pO2 ABG pO2 ABG HCO3 ABG O2 Saturation ABG Base Excess ABG Hemoglobin 7.7 L ABG Oxyhemoglobin ABG Sodium ABG Potassium ABG Chloride ABG Glucose Oxyhemoglobin 94.9 L Carboxyhemoglobin Sodium 149 H Potassium Chloride 119.8 H Carbon Dioxide BUN 31 H Creatinine 0.4 L Glucose 130 H POC Glucose Lactic Acid Calcium 6.5 L Phosphorus Magnesium Total Creatine Kinase Troponin T Total Protein Albumin Triglycerides LDL Cholesterol Direct HDL Cholesterol Arterial Blood Glucose Arterial Blood Ionized Calcium Urine pH Urine WBC (Auto) Vancomycin Trough Salicylates Acetaminophen Crossmatch 11/07/20 11/08/20 11/08/20 17:23 00:12 06:11 WBC RBC Hgb Hct MCV MCH MCHC RDW Plt Count Lymph % (Auto) Seg Neutrophils % Seg Neuts % (Manual) Lymphocytes % (Manual) Nucleated RBC % Seg Neutrophils # Seg Neutrophils # Man Lymphocytes # (Manual) Monocytes # (Manual) PT INR ABG pH POC ABG pCO2 POC ABG pO2 ABG pO2 ABG HCO3 ABG O2 Saturation ABG Base Excess ABG Hemoglobin ABG Oxyhemoglobin ABG Sodium ABG Potassium ABG Chloride ABG Glucose Oxyhemoglobin Carboxyhemoglobin Sodium Potassium Chloride Carbon Dioxide BUN Creatinine Glucose POC Glucose 115 H 129 H 109 H Lactic Acid Calcium Phosphorus Magnesium Total Creatine Kinase Troponin T Total Protein Albumin Triglycerides LDL Cholesterol Direct HDL Cholesterol Arterial Blood Glucose Arterial Blood Ionized Calcium Urine pH Urine WBC (Auto) Vancomycin Trough Salicylates Acetaminophen Crossmatch 11/08/20 11/08/20 11/08/20 17:36 23:49 23:58 WBC RBC Hgb Hct MCV MCH MCHC RDW Plt Count Lymph % (Auto) Seg Neutrophils % Seg Neuts % (Manual) Lymphocytes % (Manual) Nucleated RBC % Seg Neutrophils # Seg Neutrophils # Man Lymphocytes # (Manual) Monocytes # (Manual) PT INR ABG pH POC ABG pCO2 POC ABG pO2 ABG pO2 ABG HCO3 ABG O2 Saturation ABG Base Excess ABG Hemoglobin ABG Oxyhemoglobin ABG Sodium ABG Potassium ABG Chloride ABG Glucose Oxyhemoglobin Carboxyhemoglobin Sodium Potassium Chloride Carbon Dioxide BUN Creatinine Glucose 138 H POC Glucose 38 L 36 L Lactic Acid Calcium Phosphorus Magnesium Total Creatine Kinase Troponin T Total Protein Albumin Triglycerides LDL Cholesterol Direct HDL Cholesterol Arterial Blood Glucose Arterial Blood Ionized Calcium Urine pH Urine WBC (Auto) Vancomycin Trough Salicylates Acetaminophen Crossmatch 11/09/20 11/09/20 11/09/20 05:33 06:00 06:00 WBC 13.1 H RBC 2.35 L Hgb 7.6 L D Hct 22.9 L D MCV 97 H MCH MCHC RDW 16.8 H Plt Count Lymph % (Auto) 9.1 L Seg Neutrophils % 84.8 H Seg Neuts % (Manual) Lymphocytes % (Manual) Nucleated RBC % Seg Neutrophils # 11.1 H Seg Neutrophils # Man Lymphocytes # (Manual) Monocytes # (Manual) PT INR ABG pH POC ABG pCO2 POC ABG pO2 ABG pO2 ABG HCO3 ABG O2 Saturation ABG Base Excess ABG Hemoglobin ABG Oxyhemoglobin ABG Sodium ABG Potassium ABG Chloride ABG Glucose Oxyhemoglobin Carboxyhemoglobin Sodium 150 H Potassium 3.4 L D Chloride 119.2 H Carbon Dioxide BUN 30 H Creatinine 0.4 L Glucose 137 H POC Glucose 58 L Lactic Acid Calcium 7.2 L Phosphorus Magnesium Total Creatine Kinase Troponin T Total Protein Albumin Triglycerides LDL Cholesterol Direct HDL Cholesterol Arterial Blood Glucose Arterial Blood Ionized Calcium Urine pH Urine WBC (Auto) Vancomycin Trough Salicylates Acetaminophen Crossmatch 11/09/20 11/09/20 11/10/20 06:08 22:16 13:46 WBC 16.1 H RBC 2.52 L Hgb 8.1 L Hct 25.2 L MCV 100 H MCH MCHC RDW 18.2 H Plt Count Lymph % (Auto) Seg Neutrophils % Seg Neuts % (Manual) 90.0 H Lymphocytes % (Manual) 3.0 L Nucleated RBC % Seg Neutrophils # Seg Neutrophils # Man 14.5 H Lymphocytes # (Manual) 0.5 L Monocytes # (Manual) 1.1 H PT INR ABG pH POC ABG pCO2 POC ABG pO2 ABG pO2 ABG HCO3 ABG O2 Saturation ABG Base Excess ABG Hemoglobin ABG Oxyhemoglobin ABG Sodium ABG Potassium ABG Chloride ABG Glucose Oxyhemoglobin Carboxyhemoglobin Sodium Potassium Chloride Carbon Dioxide BUN Creatinine Glucose POC Glucose 122 H 120 H Lactic Acid Calcium Phosphorus Magnesium Total Creatine Kinase Troponin T Total Protein Albumin Triglycerides LDL Cholesterol Direct HDL Cholesterol Arterial Blood Glucose Arterial Blood Ionized Calcium Urine pH Urine WBC (Auto) Vancomycin Trough Salicylates Acetaminophen Crossmatch 11/10/20 11/10/20 11/11/20 13:46 15:59 11:43 WBC RBC Hgb Hct MCV MCH MCHC RDW Plt Count Lymph % (Auto) Seg Neutrophils % Seg Neuts % (Manual) Lymphocytes % (Manual) Nucleated RBC % Seg Neutrophils # Seg Neutrophils # Man Lymphocytes # (Manual) Monocytes # (Manual) PT INR ABG pH POC ABG pCO2 POC ABG pO2 ABG pO2 ABG HCO3 ABG O2 Saturation ABG Base Excess ABG Hemoglobin ABG Oxyhemoglobin ABG Sodium ABG Potassium ABG Chloride ABG Glucose Oxyhemoglobin Carboxyhemoglobin Sodium 153 H Potassium Chloride 120.6 H Carbon Dioxide BUN 27 H Creatinine 0.3 L Glucose 112 H POC Glucose 40 L 124 H Lactic Acid Calcium 6.8 L Phosphorus Magnesium Total Creatine Kinase Troponin T Total Protein Albumin Triglycerides LDL Cholesterol Direct HDL Cholesterol Arterial Blood Glucose Arterial Blood Ionized Calcium Urine pH Urine WBC (Auto) Vancomycin Trough Salicylates Acetaminophen Crossmatch 11/11/20 11/11/20 11/11/20 14:38 14:38 14:38 WBC 13.8 H RBC 2.43 L Hgb 7.6 L Hct 24.0 L MCV 99 H MCH MCHC RDW 18.0 H Plt Count Lymph % (Auto) Seg Neutrophils % Seg Neuts % (Manual) Lymphocytes % (Manual) Nucleated RBC % Seg Neutrophils # Seg Neutrophils # Man Lymphocytes # (Manual) Monocytes # (Manual) PT 15.0 H INR 1.18 H ABG pH POC ABG pCO2 POC ABG pO2 ABG pO2 ABG HCO3 ABG O2 Saturation ABG Base Excess ABG Hemoglobin ABG Oxyhemoglobin ABG Sodium ABG Potassium ABG Chloride ABG Glucose Oxyhemoglobin Carboxyhemoglobin Sodium 154 H Potassium 3.1 L D Chloride 122.1 H Carbon Dioxide BUN 26 H Creatinine 0.4 L Glucose 140 H POC Glucose Lactic Acid Calcium 7.3 L Phosphorus Magnesium Total Creatine Kinase Troponin T Total Protein Albumin Triglycerides LDL Cholesterol Direct HDL Cholesterol Arterial Blood Glucose Arterial Blood Ionized Calcium Urine pH Urine WBC (Auto) Vancomycin Trough Salicylates Acetaminophen Crossmatch 11/11/20 11/11/20 11/12/20 18:39 18:42 00:03 WBC RBC Hgb Hct MCV MCH MCHC RDW Plt Count Lymph % (Auto) Seg Neutrophils % Seg Neuts % (Manual) Lymphocytes % (Manual) Nucleated RBC % Seg Neutrophils # Seg Neutrophils # Man Lymphocytes # (Manual) Monocytes # (Manual) PT INR ABG pH POC ABG pCO2 POC ABG pO2 ABG pO2 ABG HCO3 ABG O2 Saturation ABG Base Excess ABG Hemoglobin ABG Oxyhemoglobin ABG Sodium ABG Potassium ABG Chloride ABG Glucose Oxyhemoglobin Carboxyhemoglobin Sodium Potassium Chloride Carbon Dioxide BUN Creatinine Glucose POC Glucose 45 L 66 L 108 H Lactic Acid Calcium Phosphorus Magnesium Total Creatine Kinase Troponin T Total Protein Albumin Triglycerides LDL Cholesterol Direct HDL Cholesterol Arterial Blood Glucose Arterial Blood Ionized Calcium Urine pH Urine WBC (Auto) Vancomycin Trough Salicylates Acetaminophen Crossmatch 11/12/20 11/12/20 11/12/20 05:44 08:33 08:33 WBC 13.4 H RBC 2.35 L Hgb 7.5 L Hct 23.7 L MCV 101 H MCH MCHC RDW 19.7 H Plt Count Lymph % (Auto) Seg Neutrophils % Seg Neuts % (Manual) Lymphocytes % (Manual) Nucleated RBC % Seg Neutrophils # Seg Neutrophils # Man Lymphocytes # (Manual) Monocytes # (Manual) PT INR ABG pH POC ABG pCO2 POC ABG pO2 ABG pO2 ABG HCO3 ABG O2 Saturation ABG Base Excess ABG Hemoglobin ABG Oxyhemoglobin ABG Sodium ABG Potassium ABG Chloride ABG Glucose Oxyhemoglobin Carboxyhemoglobin Sodium 154 H Potassium 2.9 L* Chloride 121.4 H Carbon Dioxide BUN 26 H Creatinine 0.4 L Glucose 153 H POC Glucose 114 H Lactic Acid Calcium 7.3 L Phosphorus Magnesium Total Creatine Kinase Troponin T Total Protein Albumin Triglycerides LDL Cholesterol Direct HDL Cholesterol Arterial Blood Glucose Arterial Blood Ionized Calcium Urine pH Urine WBC (Auto) Vancomycin Trough Salicylates Acetaminophen Crossmatch 11/12/20 11/12/20 11/13/20 11:38 17:17 05:28 WBC RBC Hgb Hct MCV MCH MCHC RDW Plt Count Lymph % (Auto) Seg Neutrophils % Seg Neuts % (Manual) Lymphocytes % (Manual) Nucleated RBC % Seg Neutrophils # Seg Neutrophils # Man Lymphocytes # (Manual) Monocytes # (Manual) PT INR ABG pH POC ABG pCO2 51.4 H POC ABG pO2 41.7 L ABG pO2 ABG HCO3 ABG O2 Saturation ABG Base Excess ABG Hemoglobin 9.1 L ABG Oxyhemoglobin 72.2 L ABG Sodium 151.1 H ABG Potassium 3.2 L ABG Chloride 122.0 H ABG Glucose 191 H Oxyhemoglobin Carboxyhemoglobin Sodium Potassium Chloride Carbon Dioxide BUN Creatinine Glucose POC Glucose 125 H 127 H Lactic Acid Calcium Phosphorus Magnesium Total Creatine Kinase Troponin T Total Protein Albumin Triglycerides LDL Cholesterol Direct HDL Cholesterol Arterial Blood Glucose 191 H Arterial Blood Ionized Calcium Urine pH Urine WBC (Auto) Vancomycin Trough Salicylates Acetaminophen Crossmatch 11/13/20 11/13/20 11/13/20 10:46 23:15 23:15 WBC 12.2 H RBC 2.41 L Hgb 7.7 L Hct 24.5 L MCV 102 H MCH MCHC RDW 23.0 H Plt Count Lymph % (Auto) Seg Neutrophils % Seg Neuts % (Manual) Lymphocytes % (Manual) Nucleated RBC % Seg Neutrophils # Seg Neutrophils # Man Lymphocytes # (Manual) Monocytes # (Manual) PT INR ABG pH POC ABG pCO2 POC ABG pO2 ABG pO2 ABG HCO3 ABG O2 Saturation ABG Base Excess ABG Hemoglobin ABG Oxyhemoglobin ABG Sodium ABG Potassium ABG Chloride ABG Glucose Oxyhemoglobin Carboxyhemoglobin Sodium Potassium Chloride Carbon Dioxide BUN Creatinine Glucose POC Glucose 153 H Lactic Acid Calcium Phosphorus Magnesium Total Creatine Kinase Troponin T 0.123 H* Total Protein Albumin Triglycerides LDL Cholesterol Direct HDL Cholesterol Arterial Blood Glucose Arterial Blood Ionized Calcium Urine pH Urine WBC (Auto) Vancomycin Trough Salicylates Acetaminophen Crossmatch 11/13/20 11/13/20 11/14/20 23:15 Unknown 05:26 WBC RBC Hgb Hct MCV MCH MCHC RDW Plt Count Lymph % (Auto) Seg Neutrophils % Seg Neuts % (Manual) Lymphocytes % (Manual) Nucleated RBC % Seg Neutrophils # Seg Neutrophils # Man Lymphocytes # (Manual) Monocytes # (Manual) PT INR ABG pH 7.295 L POC ABG pCO2 56.0 H POC ABG pO2 49.1 L ABG pO2 ABG HCO3 ABG O2 Saturation ABG Base Excess ABG Hemoglobin 8.3 L ABG Oxyhemoglobin 77.1 L ABG Sodium 150.5 H ABG Potassium 3.3 L ABG Chloride 121.0 H ABG Glucose 187 H Oxyhemoglobin Carboxyhemoglobin Sodium 152 H Potassium 3.3 L Chloride 117.8 H Carbon Dioxide BUN 25 H Creatinine 0.4 L Glucose 123 H POC Glucose 46 L Lactic Acid Calcium 7.5 L Phosphorus Magnesium Total Creatine Kinase Troponin T Total Protein Albumin Triglycerides LDL Cholesterol Direct HDL Cholesterol Arterial Blood Glucose 187 H Arterial Blood Ionized Calcium Urine pH Urine WBC (Auto) Vancomycin Trough Salicylates Acetaminophen Crossmatch 11/14/20 11/14/20 11/14/20 06:26 22:26 22:26 WBC RBC 2.75 L Hgb 9.0 L Hct 27.8 L MCV 101 H MCH 33 H MCHC RDW 22.8 H Plt Count Lymph % (Auto) Seg Neutrophils % Seg Neuts % (Manual) Lymphocytes % (Manual) Nucleated RBC % Seg Neutrophils # Seg Neutrophils # Man Lymphocytes # (Manual) Monocytes # (Manual) PT INR ABG pH POC ABG pCO2 POC ABG pO2 ABG pO2 ABG HCO3 ABG O2 Saturation ABG Base Excess ABG Hemoglobin ABG Oxyhemoglobin ABG Sodium ABG Potassium ABG Chloride ABG Glucose Oxyhemoglobin Carboxyhemoglobin Sodium 147 H Potassium 3.3 L Chloride 114.3 H Carbon Dioxide BUN 23 H Creatinine 0.3 L Glucose 209 H POC Glucose 135 H Lactic Acid Calcium 7.4 L Phosphorus Magnesium Total Creatine Kinase Troponin T Total Protein Albumin Triglycerides LDL Cholesterol Direct HDL Cholesterol Arterial Blood Glucose Arterial Blood Ionized Calcium Urine pH Urine WBC (Auto) Vancomycin Trough Salicylates Acetaminophen Crossmatch 11/14/20 11/15/20 11/15/20 23:22 04:28 05:57 WBC RBC Hgb Hct MCV MCH MCHC RDW Plt Count Lymph % (Auto) Seg Neutrophils % Seg Neuts % (Manual) Lymphocytes % (Manual) Nucleated RBC % Seg Neutrophils # Seg Neutrophils # Man Lymphocytes # (Manual) Monocytes # (Manual) PT INR ABG pH POC ABG pCO2 POC ABG pO2 ABG pO2 ABG HCO3 ABG O2 Saturation ABG Base Excess ABG Hemoglobin ABG Oxyhemoglobin ABG Sodium ABG Potassium ABG Chloride ABG Glucose Oxyhemoglobin Carboxyhemoglobin Sodium 152 H Potassium Chloride 118.1 H Carbon Dioxide BUN 22 H Creatinine 0.3 L Glucose 190 H POC Glucose 136 H 151 H Lactic Acid Calcium 7.5 L Phosphorus Magnesium Total Creatine Kinase Troponin T Total Protein Albumin Triglycerides LDL Cholesterol Direct HDL Cholesterol Arterial Blood Glucose Arterial Blood Ionized Calcium Urine pH Urine WBC (Auto) Vancomycin Trough Salicylates Acetaminophen Crossmatch 11/15/20 11/15/20 11/15/20 11:40 16:56 21:53 WBC RBC Hgb Hct MCV MCH MCHC RDW Plt Count Lymph % (Auto) Seg Neutrophils % Seg Neuts % (Manual) Lymphocytes % (Manual) Nucleated RBC % Seg Neutrophils # Seg Neutrophils # Man Lymphocytes # (Manual) Monocytes # (Manual) PT INR ABG pH 7.457 H POC ABG pCO2 POC ABG pO2 ABG pO2 48.3 L ABG HCO3 26.1 H ABG O2 Saturation 82.9 L ABG Base Excess ABG Hemoglobin 9.7 L ABG Oxyhemoglobin ABG Sodium ABG Potassium ABG Chloride ABG Glucose Oxyhemoglobin 81.0 L Carboxyhemoglobin Sodium Potassium Chloride Carbon Dioxide BUN Creatinine Glucose POC Glucose 129 H 115 H Lactic Acid Calcium Phosphorus Magnesium Total Creatine Kinase Troponin T Total Protein Albumin Triglycerides LDL Cholesterol Direct HDL Cholesterol Arterial Blood Glucose Arterial Blood Ionized Calcium Urine pH Urine WBC (Auto) Vancomycin Trough Salicylates Acetaminophen Crossmatch 11/15/20 11/16/20 11/16/20 23:12 00:07 00:09 WBC RBC Hgb Hct MCV MCH MCHC RDW Plt Count Lymph % (Auto) Seg Neutrophils % Seg Neuts % (Manual) Lymphocytes % (Manual) Nucleated RBC % Seg Neutrophils # Seg Neutrophils # Man Lymphocytes # (Manual) Monocytes # (Manual) PT INR ABG pH POC ABG pCO2 POC ABG pO2 ABG pO2 95.1 H ABG HCO3 26.6 H ABG O2 Saturation ABG Base Excess ABG Hemoglobin 7.5 L ABG Oxyhemoglobin ABG Sodium ABG Potassium ABG Chloride ABG Glucose Oxyhemoglobin Carboxyhemoglobin Sodium Potassium Chloride Carbon Dioxide BUN Creatinine Glucose POC Glucose 13 L 153 H Lactic Acid Calcium Phosphorus Magnesium Total Creatine Kinase Troponin T Total Protein Albumin Triglycerides LDL Cholesterol Direct HDL Cholesterol Arterial Blood Glucose Arterial Blood Ionized Calcium Urine pH Urine WBC (Auto) Vancomycin Trough Salicylates Acetaminophen Crossmatch 11/16/20 11/16/20 11/16/20 03:43 04:00 04:00 WBC RBC 2.33 L Hgb 7.7 L Hct 24.5 L MCV 105 H MCH 33 H MCHC 31 L RDW 22.9 H Plt Count Lymph % (Auto) Seg Neutrophils % Seg Neuts % (Manual) Lymphocytes % (Manual) Nucleated RBC % Seg Neutrophils # Seg Neutrophils # Man Lymphocytes # (Manual) Monocytes # (Manual) PT INR ABG pH 7.348 L POC ABG pCO2 POC ABG pO2 ABG pO2 91.6 H ABG HCO3 26.3 H ABG O2 Saturation ABG Base Excess ABG Hemoglobin 7.3 L ABG Oxyhemoglobin ABG Sodium ABG Potassium ABG Chloride ABG Glucose Oxyhemoglobin Carboxyhemoglobin Sodium 148 H Potassium 3.5 L Chloride 115.9 H Carbon Dioxide BUN Creatinine 0.4 L Glucose 195 H POC Glucose Lactic Acid Calcium 7.6 L Phosphorus Magnesium Total Creatine Kinase Troponin T Total Protein Albumin Triglycerides LDL Cholesterol Direct HDL Cholesterol Arterial Blood Glucose Arterial Blood Ionized Calcium Urine pH Urine WBC (Auto) Vancomycin Trough Salicylates Acetaminophen Crossmatch 11/16/20 11/16/20 11/16/20 05:16 07:40 12:10 WBC RBC Hgb Hct MCV MCH MCHC RDW Plt Count Lymph % (Auto) Seg Neutrophils % Seg Neuts % (Manual) Lymphocytes % (Manual) Nucleated RBC % Seg Neutrophils # Seg Neutrophils # Man Lymphocytes # (Manual) Monocytes # (Manual) PT INR ABG pH POC ABG pCO2 POC ABG pO2 ABG pO2 ABG HCO3 ABG O2 Saturation ABG Base Excess ABG Hemoglobin ABG Oxyhemoglobin ABG Sodium ABG Potassium ABG Chloride ABG Glucose Oxyhemoglobin Carboxyhemoglobin Sodium Potassium Chloride Carbon Dioxide BUN Creatinine Glucose POC Glucose 61 L 122 H 140 H Lactic Acid Calcium Phosphorus Magnesium Total Creatine Kinase Troponin T Total Protein Albumin Triglycerides LDL Cholesterol Direct HDL Cholesterol Arterial Blood Glucose Arterial Blood Ionized Calcium Urine pH Urine WBC (Auto) Vancomycin Trough Salicylates Acetaminophen Crossmatch 11/16/20 11/16/20 11/17/20 17:14 23:40 04:30 WBC RBC Hgb Hct MCV MCH MCHC RDW Plt Count Lymph % (Auto) Seg Neutrophils % Seg Neuts % (Manual) Lymphocytes % (Manual) Nucleated RBC % Seg Neutrophils # Seg Neutrophils # Man Lymphocytes # (Manual) Monocytes # (Manual) PT INR ABG pH 7.470 H POC ABG pCO2 POC ABG pO2 75.4 L ABG pO2 ABG HCO3 ABG O2 Saturation ABG Base Excess ABG Hemoglobin 7 L ABG Oxyhemoglobin ABG Sodium ABG Potassium ABG Chloride 116.0 H ABG Glucose 161 H Oxyhemoglobin Carboxyhemoglobin Sodium Potassium Chloride Carbon Dioxide BUN Creatinine Glucose POC Glucose 139 H 151 H Lactic Acid Calcium Phosphorus Magnesium Total Creatine Kinase Troponin T Total Protein Albumin Triglycerides LDL Cholesterol Direct HDL Cholesterol Arterial Blood Glucose 161 H Arterial Blood Ionized Calcium Urine pH Urine WBC (Auto) Vancomycin Trough Salicylates Acetaminophen Crossmatch 11/17/20 11/17/20 11/17/20 09:50 09:50 11:10 WBC RBC 2.02 L Hgb 6.6 L Hct 20.2 L MCV 100 H MCH 33 H MCHC RDW 22.4 H Plt Count Lymph % (Auto) Seg Neutrophils % Seg Neuts % (Manual) Lymphocytes % (Manual) Nucleated RBC % Seg Neutrophils # Seg Neutrophils # Man Lymphocytes # (Manual) Monocytes # (Manual) PT INR ABG pH POC ABG pCO2 POC ABG pO2 ABG pO2 ABG HCO3 ABG O2 Saturation ABG Base Excess ABG Hemoglobin ABG Oxyhemoglobin ABG Sodium ABG Potassium ABG Chloride ABG Glucose Oxyhemoglobin Carboxyhemoglobin Sodium Potassium Chloride 111.8 H Carbon Dioxide BUN 23 H Creatinine 0.4 L Glucose 142 H POC Glucose Lactic Acid Calcium 7.3 L Phosphorus Magnesium Total Creatine Kinase Troponin T Total Protein Albumin Triglycerides LDL Cholesterol Direct HDL Cholesterol Arterial Blood Glucose Arterial Blood Ionized Calcium Urine pH Urine WBC (Auto) Vancomycin Trough Salicylates Acetaminophen Crossmatch See Detail 11/17/20 11/17/20 11/17/20 11:52 11:57 23:22 WBC RBC Hgb Hct MCV MCH MCHC RDW Plt Count Lymph % (Auto) Seg Neutrophils % Seg Neuts % (Manual) Lymphocytes % (Manual) Nucleated RBC % Seg Neutrophils # Seg Neutrophils # Man Lymphocytes # (Manual) Monocytes # (Manual) PT INR ABG pH POC ABG pCO2 POC ABG pO2 ABG pO2 ABG HCO3 ABG O2 Saturation ABG Base Excess ABG Hemoglobin ABG Oxyhemoglobin ABG Sodium ABG Potassium ABG Chloride ABG Glucose Oxyhemoglobin Carboxyhemoglobin Sodium Potassium Chloride Carbon Dioxide BUN Creatinine Glucose POC Glucose 42 L 114 H 63 L Lactic Acid Calcium Phosphorus Magnesium Total Creatine Kinase Troponin T Total Protein Albumin Triglycerides LDL Cholesterol Direct HDL Cholesterol Arterial Blood Glucose Arterial Blood Ionized Calcium Urine pH Urine WBC (Auto) Vancomycin Trough Salicylates Acetaminophen Crossmatch 11/17/20 11/18/20 11/18/20 23:27 04:06 04:45 WBC RBC 2.36 L Hgb 7.4 L Hct 23.4 L MCV 99 H MCH MCHC RDW 21.6 H Plt Count Lymph % (Auto) Seg Neutrophils % Seg Neuts % (Manual) Lymphocytes % (Manual) Nucleated RBC % Seg Neutrophils # Seg Neutrophils # Man Lymphocytes # (Manual) Monocytes # (Manual) PT INR ABG pH POC ABG pCO2 POC ABG pO2 67.7 L ABG pO2 ABG HCO3 ABG O2 Saturation ABG Base Excess ABG Hemoglobin 8.3 L ABG Oxyhemoglobin ABG Sodium ABG Potassium ABG Chloride 112.0 H ABG Glucose 143 H Oxyhemoglobin Carboxyhemoglobin Sodium Potassium Chloride Carbon Dioxide BUN Creatinine Glucose POC Glucose 124 H Lactic Acid Calcium Phosphorus Magnesium Total Creatine Kinase Troponin T Total Protein Albumin Triglycerides LDL Cholesterol Direct HDL Cholesterol Arterial Blood Glucose 143 H Arterial Blood Ionized Calcium 4.5 L Urine pH Urine WBC (Auto) Vancomycin Trough Salicylates Acetaminophen Crossmatch 11/18/20 11/18/20 11/18/20 04:45 05:56 23:46 WBC RBC Hgb Hct MCV MCH MCHC RDW Plt Count Lymph % (Auto) Seg Neutrophils % Seg Neuts % (Manual) Lymphocytes % (Manual) Nucleated RBC % Seg Neutrophils # Seg Neutrophils # Man Lymphocytes # (Manual) Monocytes # (Manual) PT INR ABG pH POC ABG pCO2 POC ABG pO2 ABG pO2 ABG HCO3 ABG O2 Saturation ABG Base Excess ABG Hemoglobin ABG Oxyhemoglobin ABG Sodium ABG Potassium ABG Chloride ABG Glucose Oxyhemoglobin Carboxyhemoglobin Sodium Potassium Chloride 107.9 H Carbon Dioxide BUN 23 H Creatinine 0.4 L Glucose 139 H POC Glucose 133 H 66 L Lactic Acid Calcium 7.6 L Phosphorus Magnesium Total Creatine Kinase Troponin T Total Protein Albumin Triglycerides LDL Cholesterol Direct HDL Cholesterol Arterial Blood Glucose Arterial Blood Ionized Calcium Urine pH Urine WBC (Auto) Vancomycin Trough Salicylates Acetaminophen Crossmatch 11/18/20 11/19/20 11/19/20 23:52 05:48 06:36 WBC RBC Hgb Hct MCV MCH MCHC RDW Plt Count Lymph % (Auto) Seg Neutrophils % Seg Neuts % (Manual) Lymphocytes % (Manual) Nucleated RBC % Seg Neutrophils # Seg Neutrophils # Man Lymphocytes # (Manual) Monocytes # (Manual) PT INR ABG pH POC ABG pCO2 POC ABG pO2 ABG pO2 ABG HCO3 ABG O2 Saturation ABG Base Excess ABG Hemoglobin ABG Oxyhemoglobin ABG Sodium ABG Potassium ABG Chloride ABG Glucose Oxyhemoglobin Carboxyhemoglobin Sodium Potassium Chloride Carbon Dioxide BUN 21 H Creatinine 0.4 L Glucose 119 H POC Glucose 118 H 108 H Lactic Acid Calcium 7.8 L Phosphorus Magnesium Total Creatine Kinase Troponin T Total Protein Albumin Triglycerides LDL Cholesterol Direct HDL Cholesterol Arterial Blood Glucose Arterial Blood Ionized Calcium Urine pH Urine WBC (Auto) Vancomycin Trough Salicylates Acetaminophen Crossmatch 11/19/20 11/19/20 11/19/20 06:36 06:36 18:15 WBC RBC 2.79 L Hgb 9.0 L Hct 27.8 L MCV 100 H MCH MCHC RDW 20.7 H Plt Count Lymph % (Auto) Seg Neutrophils % Seg Neuts % (Manual) Lymphocytes % (Manual) Nucleated RBC % Seg Neutrophils # Seg Neutrophils # Man Lymphocytes # (Manual) Monocytes # (Manual) PT INR 1.15 H ABG pH POC ABG pCO2 POC ABG pO2 ABG pO2 ABG HCO3 ABG O2 Saturation ABG Base Excess ABG Hemoglobin ABG Oxyhemoglobin ABG Sodium ABG Potassium ABG Chloride ABG Glucose Oxyhemoglobin Carboxyhemoglobin Sodium Potassium Chloride Carbon Dioxide BUN Creatinine Glucose POC Glucose 115 H Lactic Acid Calcium Phosphorus Magnesium Total Creatine Kinase Troponin T Total Protein Albumin Triglycerides LDL Cholesterol Direct HDL Cholesterol Arterial Blood Glucose Arterial Blood Ionized Calcium Urine pH Urine WBC (Auto) Vancomycin Trough Salicylates Acetaminophen Crossmatch 11/19/20 11/19/20 11/20/20 23:27 Unknown 04:56 WBC RBC Hgb Hct MCV MCH MCHC RDW Plt Count Lymph % (Auto) Seg Neutrophils % Seg Neuts % (Manual) Lymphocytes % (Manual) Nucleated RBC % Seg Neutrophils # Seg Neutrophils # Man Lymphocytes # (Manual) Monocytes # (Manual) PT INR ABG pH 7.457 H POC ABG pCO2 POC ABG pO2 57.4 L ABG pO2 72.4 L ABG HCO3 26.9 H ABG O2 Saturation ABG Base Excess ABG Hemoglobin 8.5 L 9.6 L ABG Oxyhemoglobin 90.1 L ABG Sodium ABG Potassium ABG Chloride 109.0 H ABG Glucose 142 H Oxyhemoglobin 94.1 L Carboxyhemoglobin Sodium Potassium Chloride Carbon Dioxide BUN Creatinine Glucose POC Glucose 129 H Lactic Acid Calcium Phosphorus Magnesium Total Creatine Kinase Troponin T Total Protein Albumin Triglycerides LDL Cholesterol Direct HDL Cholesterol Arterial Blood Glucose 142 H Arterial Blood Ionized Calcium Urine pH Urine WBC (Auto) Vancomycin Trough Salicylates Acetaminophen Crossmatch 11/20/20 11/20/20 11/20/20 05:07 05:45 05:45 WBC 11.7 H RBC 2.74 L Hgb 8.9 L Hct 26.3 L MCV 96 H MCH 33 H MCHC RDW 18.6 H Plt Count Lymph % (Auto) Seg Neutrophils % Seg Neuts % (Manual) Lymphocytes % (Manual) Nucleated RBC % Seg Neutrophils # Seg Neutrophils # Man Lymphocytes # (Manual) Monocytes # (Manual) PT INR ABG pH POC ABG pCO2 POC ABG pO2 ABG pO2 ABG HCO3 ABG O2 Saturation ABG Base Excess ABG Hemoglobin ABG Oxyhemoglobin ABG Sodium ABG Potassium ABG Chloride ABG Glucose Oxyhemoglobin Carboxyhemoglobin Sodium Potassium Chloride Carbon Dioxide 31 H BUN Creatinine 0.4 L Glucose 127 H POC Glucose 129 H Lactic Acid Calcium 8.0 L Phosphorus Magnesium Total Creatine Kinase Troponin T Total Protein Albumin Triglycerides LDL Cholesterol Direct HDL Cholesterol Arterial Blood Glucose Arterial Blood Ionized Calcium Urine pH Urine WBC (Auto) Vancomycin Trough Salicylates Acetaminophen Crossmatch 11/20/20 11/20/20 11/21/20 12:02 17:52 00:02 WBC RBC Hgb Hct MCV MCH MCHC RDW Plt Count Lymph % (Auto) Seg Neutrophils % Seg Neuts % (Manual) Lymphocytes % (Manual) Nucleated RBC % Seg Neutrophils # Seg Neutrophils # Man Lymphocytes # (Manual) Monocytes # (Manual) PT INR ABG pH POC ABG pCO2 POC ABG pO2 ABG pO2 ABG HCO3 ABG O2 Saturation ABG Base Excess ABG Hemoglobin ABG Oxyhemoglobin ABG Sodium ABG Potassium ABG Chloride ABG Glucose Oxyhemoglobin Carboxyhemoglobin Sodium Potassium Chloride Carbon Dioxide BUN Creatinine Glucose POC Glucose 134 H 115 H 116 H Lactic Acid Calcium Phosphorus Magnesium Total Creatine Kinase Troponin T Total Protein Albumin Triglycerides LDL Cholesterol Direct HDL Cholesterol Arterial Blood Glucose Arterial Blood Ionized Calcium Urine pH Urine WBC (Auto) Vancomycin Trough Salicylates Acetaminophen Crossmatch 11/21/20 11/21/20 11/21/20 03:23 04:00 05:14 WBC RBC Hgb Hct MCV MCH MCHC RDW Plt Count Lymph % (Auto) Seg Neutrophils % Seg Neuts % (Manual) Lymphocytes % (Manual) Nucleated RBC % Seg Neutrophils # Seg Neutrophils # Man Lymphocytes # (Manual) Monocytes # (Manual) PT INR ABG pH 7.479 H POC ABG pCO2 POC ABG pO2 73.7 L ABG pO2 ABG HCO3 ABG O2 Saturation ABG Base Excess ABG Hemoglobin 9.4 L ABG Oxyhemoglobin ABG Sodium ABG Potassium ABG Chloride 108.0 H ABG Glucose 135 H Oxyhemoglobin Carboxyhemoglobin Sodium Potassium Chloride Carbon Dioxide 34 H BUN Creatinine 0.4 L Glucose 125 H POC Glucose 116 H Lactic Acid Calcium 7.9 L Phosphorus Magnesium Total Creatine Kinase Troponin T Total Protein Albumin Triglycerides LDL Cholesterol Direct HDL Cholesterol Arterial Blood Glucose 135 H Arterial Blood Ionized Calcium 4.5 L Urine pH Urine WBC (Auto) Vancomycin Trough Salicylates Acetaminophen Crossmatch 11/22/20 11/22/20 11/22/20 04:00 04:00 05:34 WBC 12.2 H RBC 2.74 L Hgb 8.7 L Hct 27.4 L MCV 100 H MCH MCHC RDW 19.2 H Plt Count Lymph % (Auto) Seg Neutrophils % Seg Neuts % (Manual) Lymphocytes % (Manual) Nucleated RBC % Seg Neutrophils # Seg Neutrophils # Man Lymphocytes # (Manual) Monocytes # (Manual) PT INR ABG pH POC ABG pCO2 POC ABG pO2 ABG pO2 ABG HCO3 ABG O2 Saturation ABG Base Excess ABG Hemoglobin ABG Oxyhemoglobin ABG Sodium ABG Potassium ABG Chloride ABG Glucose Oxyhemoglobin Carboxyhemoglobin Sodium Potassium Chloride Carbon Dioxide BUN Creatinine 0.4 L Glucose POC Glucose 58 L Lactic Acid Calcium 7.7 L Phosphorus Magnesium Total Creatine Kinase Troponin T Total Protein Albumin Triglycerides LDL Cholesterol Direct HDL Cholesterol Arterial Blood Glucose Arterial Blood Ionized Calcium Urine pH Urine WBC (Auto) Vancomycin Trough Salicylates Acetaminophen Crossmatch 11/22/20 11/23/20 11/23/20 11:48 00:15 04:16 WBC RBC Hgb Hct MCV MCH MCHC RDW Plt Count Lymph % (Auto) Seg Neutrophils % Seg Neuts % (Manual) Lymphocytes % (Manual) Nucleated RBC % Seg Neutrophils # Seg Neutrophils # Man Lymphocytes # (Manual) Monocytes # (Manual) PT INR ABG pH POC ABG pCO2 POC ABG pO2 75.2 L ABG pO2 ABG HCO3 ABG O2 Saturation ABG Base Excess ABG Hemoglobin 11.9 L ABG Oxyhemoglobin ABG Sodium ABG Potassium ABG Chloride ABG Glucose 152 H Oxyhemoglobin Carboxyhemoglobin Sodium Potassium Chloride Carbon Dioxide BUN Creatinine Glucose POC Glucose 60 L 106 H Lactic Acid Calcium Phosphorus Magnesium Total Creatine Kinase Troponin T Total Protein Albumin Triglycerides LDL Cholesterol Direct HDL Cholesterol Arterial Blood Glucose 152 H Arterial Blood Ionized Calcium 4.5 L Urine pH Urine WBC (Auto) Vancomycin Trough Salicylates Acetaminophen Crossmatch 11/23/20 11/23/20 04:25 05:27 WBC RBC Hgb Hct MCV MCH MCHC RDW Plt Count Lymph % (Auto) Seg Neutrophils % Seg Neuts % (Manual) Lymphocytes % (Manual) Nucleated RBC % Seg Neutrophils # Seg Neutrophils # Man Lymphocytes # (Manual) Monocytes # (Manual) PT INR ABG pH 7.489 H POC ABG pCO2 POC ABG pO2 74.7 L ABG pO2 ABG HCO3 ABG O2 Saturation ABG Base Excess ABG Hemoglobin 9.6 L ABG Oxyhemoglobin ABG Sodium 135.6 L ABG Potassium ABG Chloride ABG Glucose 119 H Oxyhemoglobin Carboxyhemoglobin Sodium Potassium Chloride Carbon Dioxide BUN Creatinine Glucose POC Glucose 121 H Lactic Acid Calcium Phosphorus Magnesium Total Creatine Kinase Troponin T Total Protein Albumin Triglycerides LDL Cholesterol Direct HDL Cholesterol Arterial Blood Glucose 119 H Arterial Blood Ionized Calcium 4.4 L Urine pH Urine WBC (Auto) Vancomycin Trough Salicylates Acetaminophen Crossmatch Allied health notes reviewed: nursing
[2020-11-23 10:49] LABS: Hematocrit 24.7 % (35.5-45.6); Hemoglobin 8.4 gm/dl (11.8-15.2); Mean Corpuscular HGB Conc 34 % (32-34); Mean Corpuscular Volume 96 fl (84-94); Platelet Count 343 K/mm3 (140-440); Red Blood Count 2.58 M/mm3 (3.65-5.03); Red Cell Distribution Width 18.2 % (13.2-15.2)
[2020-11-23] MEDS: SODIUM HYPOCHLORITE, DAKIN'S 1/2 STRENGTH (0.25%) 473 ML TOPICAL SOLN TP SCH (10:51)
[2020-11-23] MEDS: FAMOTIDINE 20 MG/2 ML INJ IV SCH ×2 (10:51→21:33)
[2020-11-23] MEDS: DEXTROSE 10% IN WATER 1,000 ML IV SCH (10:55)
[2020-11-23 11:09] LABS: Blood Urea Nitrogen 13 mg/dL (9-20); Calcium 7.2 mg/dL (8.4-10.2); Hemolysis Index 15
[2020-11-23 11:10] LABS: BUN/Creatinine Ratio 33
[2020-11-23 12:49] LABS: Total Cells Counted 100
[2020-11-23 12:50] LABS: Platelet Estimate Consistent w Auto; RBC Morphology Normal
[2020-11-23] MEDS: VANCOMYCIN 2,000 MG in SODIUM CHLORIDE 0.9% 500 ML 500 ML IV SCH (13:00)
--- NOTE | 2020-11-23 14:20 | Progress Note ---
Assessment and Plan 75-year-old male who is a halfway resident with seizure disorder, hypertension, depression, hyperlipidemia, hypoglycemia, dysphagia, and encephalopathy who is admitted for sepsis, acute kidney injury, urinary tract infection, acute respiratory failure, electrolyte imbalances, infected sacral wound and bilateral pneumonia Sepsis-resolving. Acute respiratory failure with Hypoxia patient now has tracheostomy stable to attempt transfer process Cardiovascular shock Infected sacral wound s/p debridement with surgery Generalized anasarca possible acute diastolic congestive heart failure Anemia Afib Bilateral pleural effusion-continues to improve. Right and left lung atelectasis secondary to mucous plug Proteus bacteremia MRSA pneumonia-resolving continue isolation. Urine tract infection Acute kidney injury with vasomotor Nephropathy Acute Diarrhea ?C.diff- Test was not peformed-diarrhea has resolved. Leukocytosis SFA occlusion - Not a candidate for surgery per Vascular Malnutrition PEG tube feedings started today. -ID, cardiology, CCM, surgery, vascular surgery, nephrology, surgery, WOCN consulted, appreciate recommendations -FAZAL, pneumonia, infected sacral wound, acute respiratory failure, leukocytosis, hypotension requiring vasopressor support -Antibiotic therapy -Trend CBC and BMP -10/26 tracheal aspirate with MRSA, 10/26 blood cultures x2 with Proteus mirabilis, 10/27 urine culture possible contaminant, 11/15: Trach aspirate positive for staph coccus aureus, 11/06 occult stool positive -On mechanical ventilation, wean as tolerated, VAP bundle, CPAP trials as tolerated -Wound care per nursing -Sedated with fentanyl -Midodrine, norepinephrine as needed -Vancomycin -Amiodarone for rate control has been initiated today via PEG tube. -S/p IVF resuscitation -HIT panel negative -Surgery consulted for trach/PEG placement (planned 11/21/2020); transfuse 1 unit PRBC on 11/18 per surgery request for goal hemoglobin greater than 8. No further transfusions needed at this time. -s/p 4 units PRBC during stay GI/DVT prophylaxis: Lovenox subq, SCDs to bilateral legs while in bed, PPI Dispo: ICU The high probability of a clinically significant, sudden or life threatening deterioration of the [pulmonary, cardiac] system(s) required my full and direct attention, intervention and personal management. The aggregate critical care time was [30] minutes. This time is in addition to time spent performing reported procedures but includes the following: [X] Data Review and interpretation [X] Patient assessment and monitoring of vital signs [X] Documentation [X] Medication orders and management Subjective Date of service: 11/23/20 Principal diagnosis: Acute Resp Fail, PNA, Septic Shock, Sacral Ulcer, AF with RVR Interval history: This is a 75-year-old male who is a halfway resident with seizure disorder, hypertension, depression, hyperlipidemia, hypoglycemia, dysphagia, and encephalopathy who presents to the emergency department on 10/26 via EMS for tachypnea, dry mucous membranes and hypoxia. Patient was hypotensive, febrile to 103 degrees and hypoxic in the emergency department therefore he was intubate d and central IV access was obtained. Patient received 3.5 L of IV fluid in the emergency department. Patient was admitted to the hospital service with consults to CCM, surgery, WOCN and ID for Sepsis, acute kidney injury, urinary tract infection, acute respiratory failure, electrolyte imbalances, infected sacral wound and bilateral pneumonia. Sepsis Acute respiratory failure with Hypoxia Cardiovascular shock Infected sacral wound s/p debridement with surgery Generalized anasarca possible acute diastolic congestive heart failure Anemia s/p 3 units prbc Bilateral pleural effusion Right and left lung atelectasis secondary to mucous plug Proteus bacteremia MRSA pneumonia Urine tract infection Acute kidney injury with vasomotor Nephropathy Acute Diarrhea ?C.diff- Test was not peformed Leukocytosis SFA occlusion - Not a candidate for surgery per Vascular SVT- Resolved Hyperchloremia Hypocalcemia Lactic acidosis 10/27: Patient received additional 4 L LR for fluid resuscitation and CV wilbert toring was initiated. Patient is on Levophed. ID added Flagyl to vancomycin and cefepime. His trach aspirate grew staph coccus aureus. At the time my examination patient the fentanyl drip was held by RN and he was on 14 MCG of Levophed. This morning he was on assist control 450/20/6/.100. We will give additional bolus of fluids with goal CVP 10-12 and repeat labs in AM. Surgery was consulted to possible debridement. 10/28: Overnight it was noted that patient went into SVT and he was given a denosine 6 mg/12 mg / 12 mg once and was started on a Cardizem drip after no response to amnio bolus and cardiology was consulted. Currently patient remains on Levophed drip and is hypotensive and received additional 2 L of bolus for goal CVP of 10-12. Infectious disease changed cefepime/Flagyl to meropenem for GNR in his blood cultures 09/04 and will continue vancomycin. Patient currently was not well controlled on max Cardizem and cardiology initiated amiodarone. Patient still is very tachycardic. Patient is hypomagnesemic and we will replete his Mg and recheck level. We will give the patient additional to complete resolve LR this afternoon. Patient has a standing order per [facility] to bolus the patient with LR for CVP goal of 10-12. This morning he is hyperchlormeic, metabolic acidotic (bicarb drip initiated) and his BUN/creatinine slightly elevated. Patient still remains lactic acidotic. 10/29: Patient's blood culture speciated to Proteus and his tracheal aspirate is MRSA. He is currently on ceftriaxone, Flagyl and vancomycin. Patient heart rate consistently is 110-150s and cardiology has given him an amiodarone bolus today and he remains on amiodarone drip. He looks much started on IV digoxin. This morning 4 L LR bolus was ordered and we will bolus an additional 4 L of LR this afternoon. Patient still has lactic acidosis, metabolic acidosis, leukocytosis and hyperchloremia. On examination this morning patient is more edematous and he remains on Levophed and amnio drip. 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 Remains on amio, levo and sedated with fentanyl. He is hypokalemic today which was repleted, h/h 02/18 and he is being type and crossed today with 2 units PRBC ordered to be transfused. Plt drop noted, heparin discontinued and HIT ordered. Bicarb gtt discontinued. No acute events overnight. 10/31: Patient hypomagnesemia today which was repleted and cardiology has changed his IV amiodarone to p.o. Patient will get albumin per [facility]. At the time my examination patient is on assist control 450/20/6/0.40. 11/03: At the time my examination patient is on assist control 450/20/6/0.25 and sedated with fentanyl and on Levophed at 4.Patient's leukocytosis is improving he received Albumin this weekend. Patient is hypokalemic, hypomagnesemic, hypocalcemic today. We will repeat his electrolytes and recheck a BMP in the a.m. Patient received 2 units PRBC on 10/30 and his hemoglobin has been trending down. We will recheck in the a.m. 11/04: At the time of my examination patient was on Levophed 3 mcg and on VZV/CPAP 450/20/6/0.35. Patient still has leukocytosis, respiratory alkalosis, hyponatremia, hypochloremia, hypocalcemia. Today his magnesium and potassium repleted with bolus of potassium 4/magnesium 2. He received 60 mcg KCl p.o., 40 mEq of KCl IV and 2 g of magnesium sulfate. We will recheck BMP and mag and a .m. Surgery has deemed the patient to unstable for further debulking. We also consulted vascular surgery for PVD as patient has discoloration to BLE /feet. 11/05: Vascular surgery will obtain bilateral lower extremity arterial duplex to evaluate arterial flow and recommends adding as FWF to tube feedings in assisting to wean off of vasopressors. Patient has hypokalemia, hypophosphatemia and normal to low magnesium. Magnesium, potassium and phosphate have been repleted. Patient still remains on ventilator support but on CPAP trial this morning. Patient HIT is still pending. This morning at the time of my examination patient was on assist-control 450/20/6/0.35 and he tolerated CPAP trial for 4 hours yesterday. He was on Levophed 0.5 and his rectal tube output was noted at 1000 mL. 11/06: This morning patient was on a CPAP trial and became hypoxic with SPO2 into the 80s and was switched back to assist control. Patient's vent settings are assist control tidal and 450, rate 20, PEEP 6, FiO2 0.25. Today patient has leukocytosis, hypernatremia, hyperchloremia, hypocalcemia and hypophosphatemia. We will repeat a phosphate. His free water flushes have been increased and his magnesium has been repleted again. Patient has been started on Lovenox given improvement in his platelet count and on midodrine to help keep Levophed off. Infectious disease will continue p.o. vancomycin for total of 10 days. 11/07: Patient failed his CPAP trial yesterday and has been placed on CPAP 05/06 again this morning by RT. Overnight patient was rested on assist control tolerance by 50, rate of 20, pressure support 6 and FiO2 30%. His lab work is still pending for this morning. On repeat his phosphorus was 4.50 yesterday and repletion was discontinued. 11/08/2020; patient is off pressors currently on midodrine. Patient is on ceftriaxone and vancomycin. Patient is on assist control. Patient was evaluated by vascular surgery for peripheral vascular disease with SFA occlusion and recommend no intervention at this time. Prognosis is guarded. Patient is on 2 L of intranasal oxygen. We will put speech therapy evaluation. 11/09/2020; patient is currently off pressors and on midodrine. Continue with ceftriaxone, Flagyl and vancomycin per ID recommendation. Patient's blood culture grew Proteus mirabilis and tracheal aspirate grew MRSA. Patient was evaluated by vascular surgery for PVD with SFA occlusion and recommend no intervention at this time. Patient is on 2 L of intranasal oxygen. Currently patient is on tube feeding and follow speech therapy evaluation. 11/10: Overnight noted to have increased RR, ? Awaiting speech eval considering patient still on Tube feeds. Continue to monitor Hypernatremia. Antibiotics today will be D109/14. Will continue discharge planning on discussion with CM. Patient nonrebreather. Possibly back on congestive heart failure will need a ppropriate diuresis. Transferred back to [facility]. Discussed with security operations center analyst and also with cardiology. 11/11: Remains lethargic remains in respiratory distress chest x-ray shows right lung collapse likely secondary to mucous plug. Discussed with security operations center analyst will likely undergo a bronchoscopy today. We will also continue to monitor as we did suggest possible pleural effusion which we think may be less likely but if that seems to be the case we will send patient for thoracentesis following e bronchoscopy. Continue to monitor hemoglobin continue to monitor diarrhea antibiotics management per infectious disease. I did speak and update patient's cousin yesterday. Patient still with edema will await cardiology reevaluation for possible further diuresis. 11/12: Patient for Bronchoscopy today. Continue supportive care 11/13: Patient Clinically improving, tolerated Bronchoscopy yesterday. Awaiting am labs today. Overnight had bradycardia. Continue weaning oxygen. Discussed with brand advocate patient did have bronchial plug plus pleural effusion but will address. Will monitor serial x-rays. Discussed with nursing staff about my discussion with the brother. Continue supportive care. PER Brother,([phone] patient has had recurrent knee aspiration. Cardiology to re-evaluate today for Bradycardia noted overnight 11/14: Patient had a repeat bronchoscopy yesterday of the right lung due to mucous plug. Apron Cleaner did have a conversation with the cousin as one of the considerations may be a trach due to recurrent pulmonary mucous plug and also significant debility for patient's overall medical condition. And his inability to maintain his airway. We will start him on a low round of D5 until diet is established. We will continue to monitor clinical status this morning. Plan discussed with nursing staff patient and also with dairy nutrition consultant 11/15: Continues to show some improvement, will check CXR today. Wean oxygen as tolerated, will likely need Trach per pulmonary. WBC improving, will monitor Sodium level. Patient on dopamin. 11/16: Patient overnight required intubation due to worsening respiratory failure secondary to complete opacification of the right lung again. This has appeared to cleared up this morning following the [employer]. Cousin advised of the finding, he will try to get us all his records because he believes that the patient has had a trach done before but is not sure. Started on Pressors due to hypotension 11/17: Today general surgery was consulted for trach/PEG placement, patient grew staph and tracheal aspirate and his cefepime was stopped and [facility] ordered a trial dose of Lasix. At the time my examination patient was on 1 mcg of fentanyl and dopamine 5 mcg/kg per cardiology. He has hyperchloremia and his lab work and is anemic today at 6.6/20.2. Patient received 1 unit PRBC. We will obtain a CBC in the a.m. 11/18: No acute events reported overnight, patient was given Lasix again by [facility], surgery has requested transfusion of one 1 unit PRBC despite H/H being 7.4/23.4 and plans to do a tracheostomy and plans to perform PEG and trach placement on 11/21/2020. We will follow up BMP and CBC in the a.m. Coags ordered. 11/19: Patient's next of kin still Mr. Buckley's next of kin/POA is still undecided about trach/PEG, surgeon aware. [facility] has given the patient another dose of Lasix and he was noted to be in atrial fibrillation with RVR this morning. Cardiology is aware and they have opted to resume amiodarone drip for rate control. We will obtain a BMP in the a.m. 11/20: At the time of examination patient remains on amiodarone 0.05 mcg and fentanyl 1 mcg on assist control tidal volume 500, rate 20, PEEP 6, FiO2 of 40%. Patient will have Lasix dose again. Dr. Quintanilla updated the family today. 11/21: Patient remains atrial fibrillation but is better rate controlled. Patient was taking to the OR for trach/PEG General surgery. No acute events reported overnight. Patient was given diuresed again and we will recheck a BMP in the a.m. 11/22. Patient tolerated tracheostomy. Alert no new concerns. Patient able to not that he is not in pain. 425 patient appears to be tolerating PEG tube feedings able to use tube feedings no new concerns over p.m. alert improving respiratory failure Objective - Constitutional Vitals: Vital Signs - 12hr 11/23/20 11/23/20 11/23/20 02:18 02:30 03:00 Temperature Pulse Rate 107 H 105 H 95 H Pulse Rate [ Anterior Bilateral Throughout] Pulse Rate [ From Monitor] Respiratory 20 16 Rate Respiratory Rate [Anterior Bilateral Throughout] Blood Pressure 140/86 141/78 O2 Sat by Pulse 98 100 100 Oximetry 11/23/20 11/23/20 11/23/20 03:30 03:52 04:00 Temperature 98.7 F Pulse Rate 100 H 103 H Pulse Rate [ Anterior Bilateral Throughout] Pulse Rate [ 99 H From Monitor] Respiratory 16 21 Rate Respiratory Rate [Anterior Bilateral Throughout] Blood Pressure 142/80 146/88 O2 Sat by Pulse 100 100 Oximetry 11/23/20 11/23/20 11/23/20 04:05 04:31 05:01 Temperature Pulse Rate 117 H 111 H 115 H Pulse Rate [ Anterior Bilateral Throughout] Pulse Rate [ From Monitor] Respiratory 21 17 Rate Respiratory Rate [Anterior Bilateral Throughout] Blood Pressure 146/92 142/93 119/86 O2 Sat by Pulse 100 100 99 Oximetry 11/23/20 11/23/20 11/23/20 05:30 06:00 06:30 Temperature Pulse Rate 107 H 115 H 117 H Pulse Rate [ Anterior Bilateral Throughout] Pulse Rate [ From Monitor] Respiratory 17 19 20 Rate Respiratory Rate [Anterior Bilateral Throughout] Blood Pressure 124/77 116/77 120/83 O2 Sat by Pulse 93 95 96 Oximetry 11/23/20 11/23/20 11/23/20 07:00 07:30 08:00 Temperature 98.2 F Pulse Rate 113 H 111 H 107 H Pulse Rate [ Anterior Bilateral Throughout] Pulse Rate [ From Monitor] Respiratory 19 19 12 Rate Respiratory Rate [Anterior Bilateral Throughout] Blood Pressure 175/120 130/79 156/98 O2 Sat by Pulse 97 99 98 Oximetry 11/23/20 11/23/20 11/23/20 08:15 08:30 09:00 Temperature Pulse Rate 101 H 108 H 97 H Pulse Rate [ 99 H Anterior Bilateral Throughout] Pulse Rate [ From Monitor] Respiratory 21 20 Rate Respiratory 20 Rate [Anterior Bilateral Throughout] Blood Pressure 160/101 179/109 116/75 O2 Sat by Pulse 99 97 Oximetry 11/23/20 11/23/20 11/23/20 09:30 10:00 10:30 Temperature Pulse Rate 99 H 100 H 99 H Pulse Rate [ Anterior Bilateral Throughout] Pulse Rate [ From Monitor] Respiratory 20 20 20 Rate Respiratory Rate [Anterior Bilateral Throughout] Blood Pressure 114/71 118/76 125/73 O2 Sat by Pulse 97 97 97 Oximetry 11/23/20 11/23/20 11/23/20 11:00 11:30 12:25 Temperature Pulse Rate 109 H 102 H 115 H Pulse Rate [ Anterior Bilateral Throughout] Pulse Rate [ From Monitor] Respiratory 20 20 Rate Respiratory Rate [Anterior Bilateral Throughout] Blood Pressure 119/71 125/77 129/85 O2 Sat by Pulse 96 96 95 Oximetry General appearance: Present: no acute distress - EENT ENT: other (Limited secretions around the tracheostomy site.) - Respiratory Respiratory: bilateral: CTA - Cardiovascular Rhythm: regular Extremities: pulses intact, No edema, normal color, Full ROM - Gastrointestinal General gastrointestinal: Present: soft, other (PEG placement site looks good) - Musculoskeletal Musculoskeletal: generalized weakness - Neurologic Neurologic: moves all extremities - Labs CBC & Chem 7: 11/23/20 10:23 11/23/20 10:23 Labs: Abnormal lab results 11/22/20 11/23/20 11/23/20 Range/Units 11:48 00:15 04:16 WBC (4.5-11.0) K/mm3 RBC (3.65-5.03) M/mm3 Hgb (11.8-15.2) gm/dl Hct (35.5-45.6) % MCV (84-94) fl RDW (13.2-15.2) % Seg Neuts % (Manual) (40.0-70.0) % Lymphocytes % (Manual) (13.4-35.0) % Seg Neutrophils # Man (1.8-7.7) K/mm3 Lymphocytes # (Manual) (1.2-5.4) K/mm3 ABG pH (7.320-7.450) POC ABG pO2 75.2 L (83-108) mmHg ABG Hemoglobin 11.9 L (12.0-17.5) ABG Sodium (136.0-145.0) mmol/L ABG Glucose 152 H (65-95) mg/dL Creatinine (0.8-1.3) mg/dL Glucose (75-100) mg/dL POC Glucose 60 L 106 H (70-105) mg/dL Calcium (8.4-10.2) mg/dL Arterial Blood Glucose 152 H (65-95) mg/dL Arterial Blood Ionized Calcium 4.5 L (4.6-5.3) mg/dL 11/23/20 11/23/20 11/23/20 Range/Units 04:25 05:27 10:23 WBC 11.3 H (4.5-11.0) K/mm3 RBC 2.58 L (3.65-5.03) M/mm3 Hgb 8.4 L (11.8-15.2) gm/dl Hct 24.7 L (35.5-45.6) % MCV 96 H (84-94) fl RDW 18.2 H (13.2-15.2) % Seg Neuts % (Manual) 94.0 H (40.0-70.0) % Lymphocytes % (Manual) 5.0 L (13.4-35.0) % Seg Neutrophils # Man 10.6 H (1.8-7.7) K/mm3 Lymphocytes # (Manual) 0.6 L (1.2-5.4) K/mm3 ABG pH 7.489 H (7.320-7.450) POC ABG pO2 74.7 L (83-108) mmHg ABG Hemoglobin 9.6 L (12.0-17.5) ABG Sodium 135.6 L (136.0-145.0) mmol/L ABG Glucose 119 H (65-95) mg/dL Creatinine (0.8-1.3) mg/dL Glucose (75-100) mg/dL POC Glucose 121 H (70-105) mg/dL Calcium (8.4-10.2) mg/dL Arterial Blood Glucose 119 H (65-95) mg/dL Arterial Blood Ionized Calcium 4.4 L (4.6-5.3) mg/dL 11/23/20 Range/Units 10:23 WBC (4.5-11.0) K/mm3 RBC (3.65-5.03) M/mm3 Hgb (11.8-15.2) gm/dl Hct (35.5-45.6) % MCV (84-94) fl RDW (13.2-15.2) % Seg Neuts % (Manual) (40.0-70.0) % Lymphocytes % (Manual) (13.4-35.0) % Seg Neutrophils # Man (1.8-7.7) K/mm3 Lymphocytes # (Manual) (1.2-5.4) K/mm3 ABG pH (7.320-7.450) POC ABG pO2 (83-108) mmHg ABG Hemoglobin (12.0-17.5) ABG Sodium (136.0-145.0) mmol/L ABG Glucose (65-95) mg/dL Creatinine 0.4 L (0.8-1.3) mg/dL Glucose 101 H (75-100) mg/dL POC Glucose (70-105) mg/dL Calcium 7.2 L (8.4-10.2) mg/dL Arterial Blood Glucose (65-95) mg/dL Arterial Blood Ionized Calcium (4.6-5.3) mg/dL - Imaging and cardiology Abdominal x-ray: report reviewed, image reviewed CT scan - chest: report reviewed, image reviewed HEART Score - HEART Score EKG: Non-specific Age: > 65 Risk factors: > 3 risk factors or hx of atherosclerotic disease Troponin: Troponin T 0.123 ng/mL (0.00-0.029) H* 11/13/20 23:15 Troponin: < normal limit - Critical Actions Critical Actions: 4-6 pts:12-16.6% risk of adverse cardiac event. Should be admitted
--- NOTE | 2020-11-23 14:50 | Progress Note ---
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 #Acute hypoxic respiratory failure: back on the vent. #Proteus bacteremia: multifactorial from infected sacral decubitus ulcer, bilateral pneumonia, UTI. S/P abx. #Acute diarrhea: ? C. difficile, improved on vancomycin p.o. Diarrhea improved, Cdiff test was not able to be done. #Necrotic, infected sacral decubitus ulcer: underwent debridement 10/29/2020, also noted to have brittle coccyx consistent with osteomyelitis. #UTI: UA with significant pyuria. #FAZAL: resolved #PVD: SFA occlusion. Not a candidate for revascularization per vascular Recs: Continue vancomycin as empiric therapy for bilateral pneumonia - planned 8 days Extend course of p.o. vancomycin due to initiation of systemic antibiotics Overall, guarded prognosis Eliezer Jack MD [facility] ([facility] O: [phone] F: [phone] Subjective Date of service: 11/23/20 Principal diagnosis: Acute Resp Fail, PNA, Septic Shock, Sacral Ulcer, AF with RVR Interval history: Afebrile, white count 11.3. On the vent. Imaging personally reviewed: Chest x-ray: Increasing bilateral parenchymal disease. Objective - Exam Narrative Exam: General appearance: alert in NAD on BiPAP Eyes: anicteric sclerae, moist conjunctivae; no lid-lag; PERRLA HENT: Normocephalic, Atraumatic; normal external ears, nares openNeck: supple, tracheal midline Lungs: Diminished breath sound bilaterally CV: RRR Abdomen: Soft, nontender Extremities: Bilateral upper extremity and lower extremity edema Skin: No rash. Extensive scrotal edema Psych: Not agitated Neuro: Alert, open eyes, follows commands - Constitutional Vitals: Vital Signs Temp Pulse Resp BP Pulse Ox 98.2 F 115 H 20 129/85 95 11/23/20 08:00 11/23/20 12:25 11/23/20 11:30 11/23/20 12:25 11/23/20 12:25 Temperature -Last 24 Hours Temperature 98.2 F Temperature 98.7 F Temperature 98.6 F Temperature 97.3 F - Labs CBC & Chem 7: 11/23/20 10:23 11/23/20 10:23 Labs: Abnormal lab results 11/22/20 11/23/20 11/23/20 Range/Units 11:48 00:15 04:16 WBC (4.5-11.0) K/mm3 RBC (3.65-5.03) M/mm3 Hgb (11.8-15.2) gm/dl Hct (35.5-45.6) % MCV (84-94) fl RDW (13.2-15.2) % Seg Neuts % (Manual) (40.0-70.0) % Lymphocytes % (Manual) (13.4-35.0) % Seg Neutrophils # Man (1.8-7.7) K/mm3 Lymphocytes # (Manual) (1.2-5.4) K/mm3 ABG pH (7.320-7.450) POC ABG pO2 75.2 L (83-108) mmHg ABG Hemoglobin 11.9 L (12.0-17.5) ABG Sodium (136.0-145.0) mmol/L ABG Glucose 152 H (65-95) mg/dL Creatinine (0.8-1.3) mg/dL Glucose (75-100) mg/dL POC Glucose 60 L 106 H (70-105) mg/dL Calcium (8.4-10.2) mg/dL Arterial Blood Glucose 152 H (65-95) mg/dL Arterial Blood Ionized Calcium 4.5 L (4.6-5.3) mg/dL 11/23/20 11/23/20 11/23/20 Range/Units 04:25 05:27 10:23 WBC 11.3 H (4.5-11.0) K/mm3 RBC 2.58 L (3.65-5.03) M/mm3 Hgb 8.4 L (11.8-15.2) gm/dl Hct 24.7 L (35.5-45.6) % MCV 96 H (84-94) fl RDW 18.2 H (13.2-15.2) % Seg Neuts % (Manual) 94.0 H (40.0-70.0) % Lymphocytes % (Manual) 5.0 L (13.4-35.0) % Seg Neutrophils # Man 10.6 H (1.8-7.7) K/mm3 Lymphocytes # (Manual) 0.6 L (1.2-5.4) K/mm3 ABG pH 7.489 H (7.320-7.450) POC ABG pO2 74.7 L (83-108) mmHg ABG Hemoglobin 9.6 L (12.0-17.5) ABG Sodium 135.6 L (136.0-145.0) mmol/L ABG Glucose 119 H (65-95) mg/dL Creatinine (0.8-1.3) mg/dL Glucose (75-100) mg/dL POC Glucose 121 H (70-105) mg/dL Calcium (8.4-10.2) mg/dL Arterial Blood Glucose 119 H (65-95) mg/dL Arterial Blood Ionized Calcium 4.4 L (4.6-5.3) mg/dL 11/23/20 Range/Units 10:23 WBC (4.5-11.0) K/mm3 RBC (3.65-5.03) M/mm3 Hgb (11.8-15.2) gm/dl Hct (35.5-45.6) % MCV (84-94) fl RDW (13.2-15.2) % Seg Neuts % (Manual) (40.0-70.0) % Lymphocytes % (Manual) (13.4-35.0) % Seg Neutrophils # Man (1.8-7.7) K/mm3 Lymphocytes # (Manual) (1.2-5.4) K/mm3 ABG pH (7.320-7.450) POC ABG pO2 (83-108) mmHg ABG Hemoglobin (12.0-17.5) ABG Sodium (136.0-145.0) mmol/L ABG Glucose (65-95) mg/dL Creatinine 0.4 L (0.8-1.3) mg/dL Glucose 101 H (75-100) mg/dL POC Glucose (70-105) mg/dL Calcium 7.2 L (8.4-10.2) mg/dL Arterial Blood Glucose (65-95) mg/dL Arterial Blood Ionized Calcium (4.6-5.3) mg/dL
--- NOTE | 2020-11-23 17:57 | Progress Note ---
Assessment and Plan Switch to PO amiodarone and discontinue IV amiodarone drip. - Patient Problems (1) Atrial fibrillation with RVR Current Visit: Yes Status: Acute (2) Atrial fibrillation and flutter Current Visit: Yes Status: Acute (3) Acute respiratory failure Current Visit: Yes Status: Acute (4) AMS (altered mental status) Current Visit: Yes Status: Acute (5) Bilateral pneumonia Current Visit: Yes Status: Acute (6) Sepsis Current Visit: Yes Status: Acute (7) Anemia Current Visit: Yes Status: Acute Subjective Date of service: 11/23/20 Principal diagnosis: Acute Resp Fail, PNA, Septic Shock, Sacral Ulcer, AF with RVR Interval history: Awake. In atrial flutter with HR in the 90s. Objective Vital Signs Temp Pulse Pulse Pulse Resp Resp BP 11/23/20 17:35 11/23/20 16:40 107 H 114/60 11/23/20 16:30 104 H 20 116/67 11/23/20 16:00 107 H 20 116/67 11/23/20 15:30 110 H 20 115/68 11/23/20 15:00 105 H 11 L 132/75 11/23/20 14:58 106 H 20 11/23/20 14:31 113 H 19 125/71 11/23/20 14:01 116 H 18 132/80 11/23/20 13:30 110 H 14 130/64 11/23/20 13:00 115 H 19 149/89 11/23/20 12:31 119 H 11 L 132/78 11/23/20 12:25 115 H 129/85 11/23/20 12:01 113 H 18 129/73 11/23/20 12:00 112 H 11/23/20 11:30 102 H 20 125/77 11/23/20 11:00 109 H 20 119/71 11/23/20 10:30 99 H 20 125/73 11/23/20 10:00 100 H 20 118/76 11/23/20 09:30 99 H 20 114/71 11/23/20 09:00 97 H 20 116/75 11/23/20 08:30 108 H 21 179/109 11/23/20 08:15 101 H 99 H 20 160/101 11/23/20 08:00 98.2 F 107 H 12 156/98 11/23/20 07:30 111 H 19 130/79 11/23/20 07:00 113 H 19 175/120 11/23/20 06:30 117 H 20 120/83 11/23/20 06:00 115 H 19 116/77 11/23/20 05:30 107 H 17 124/77 11/23/20 05:01 115 H 17 119/86 11/23/20 04:31 111 H 21 142/93 11/23/20 04:05 117 H 146/92 11/23/20 04:00 103 H 99 H 21 146/88 11/23/20 03:52 98.7 F 11/23/20 03:30 100 H 16 142/80 11/23/20 03:00 95 H 16 141/78 11/23/20 02:30 105 H 20 140/86 11/23/20 02:18 107 H 11/23/20 02:01 101 H 20 146/81 11/23/20 01:30 104 H 20 149/82 11/23/20 01:00 102 H 20 144/81 11/23/20 00:30 100 H 20 143/83 11/23/20 00:00 98.6 F 100 H 99 H 20 152/91 11/22/20 23:30 103 H 20 146/77 11/22/20 23:00 101 H 15 131/76 11/22/20 22:30 112 H 19 137/86 11/22/20 22:08 113 H 13 165/87 11/22/20 22:01 114 H 17 173/83 11/22/20 21:32 109 H 113 H 22 156/122 11/22/20 21:30 107 H 23 142/85 11/22/20 21:00 99 H 14 118/73 11/22/20 20:30 101 H 23 120/77 11/22/20 20:01 106 H 16 126/75 11/22/20 20:00 97.3 F L 107 H 99 H 20 11/22/20 19:30 108 H 22 122/71 11/22/20 19:00 105 H 24 124/73 11/22/20 18:30 99 H 26 H 126/76 11/22/20 18:00 109 H 22 103/63 Last Vital Signs Temp 98.2 F 11/23/20 08:00 Pulse 107 H 11/23/20 16:40 Resp 20 11/23/20 16:30 BP 114/60 11/23/20 16:40 Pulse Ox 94 11/23/20 17:35 - Physical Examination General: No Apparent Distress, Other (intubated) HEENT: Positive: EOMI, Normocephaly, Mucus Membranes Moist Neck: Positive: neck supple, trachea midline Cardiac: Positive: Regular Rhythm Lungs: Positive: Rhonchi Neuro: Positive: Other (lethargic) Abdomen: Positive: Soft, Active Bowel Sounds. Negative: Tender Skin: Positive: Wound (sacral). Negative: Rash Musculoskeletal: No Fluid Collection, No Pain Extremities: Present: +2 Edema (Bilateral leg edema), Other (chronic skin changes noted) - Labs and Meds CBC 11/23/20 Range/Units 10:23 WBC 11.3 H (4.5-11.0) K/mm3 RBC 2.58 L (3.65-5.03) M/mm3 Hgb 8.4 L (11.8-15.2) gm/dl Hct 24.7 L (35.5-45.6) % Plt Count 343 (140-440) K/mm3 Comprehensive Metabolic Panel 11/23/20 Range/Units 10:23 Sodium 140 (137-145) mmol/L Potassium 3.7 (3.6-5.0) mmol/L Chloride 104.5 (98-107) mmol/L Carbon Dioxide 29 (22-30) mmol/L BUN 13 (9-20) mg/dL Creatinine 0.4 L (0.8-1.3) mg/dL Glucose 101 H (75-100) mg/dL Calcium 7.2 L (8.4-10.2) mg/dL - Imaging and Cardiology Echo: report reviewed (10/28/2020- EF 55-60%, no significant valvular abnormalities) - Telemetry EKG Rhythm: Atrial Flutter Repolarization changes or abnormalities: nonspecific abnormality, ST segment, and/or T wave - Allied health notes Allied health notes reviewed: nursing
[2020-11-23] MEDS ORDERED: AMIODARONE 150 MG in DEXTROSE 5% IN WATER 97 ML IV ONE (18:30)
[2020-11-23] MEDS: ENOXAPARIN 40 MG/0.4 ML INJ SUB-Q SCH (21:33)
[2020-11-23] MEDS: AMIODARONE 200 MG TAB PO SCH (21:33)
[2020-11-24] MEDS: VANCOMYCIN 250 MG/10 ML ORAL LIQD PO SCH ×2 (00:25→06:40)
[2020-11-24] MEDS: SODIUM HYPOCHLORITE, DAKIN'S 1/2 STRENGTH (0.25%) 473 ML TOPICAL SOLN TP SCH ×3 (01:00→21:49)
[2020-11-24] MEDS: AMIODARONE 200 MG TAB PO SCH ×2 (09:05→21:48)
[2020-11-24] MEDS: MIDODRINE 5 MG TAB PO SCH ×3 (09:05→16:43)
[2020-11-24] MEDS: FAMOTIDINE 20 MG/2 ML INJ IV SCH (09:05)
[2020-11-24] MEDS: fentaNYL DRIP Premix 2,000 MCG/100 ML BAG IV SCH (09:45)
--- NOTE | 2020-11-24 11:28 | Progress Note ---
Assessment and Plan Cultures: 10/26/2020 tracheal aspirate culture: MRSA 10/26/2020 blood culture: Proteus 10/27/2020 urine culture: Mixed hien 11/15/2020 sputum culture: MRSA A/P: 75-year-old male, assisted resident with seizure disorder, hypertension, depression, hyperlipidemia, chronic encephalopathy was sent to the hospital with worsening mental status: #Septic shock: probably from pneumonia. Resolved #Acute hypoxic respiratory failure: on the vent, s/p trach. #Proteus bacteremia: multifactorial from infected sacral decubitus ulcer, bilateral pneumonia, UTI. S/P abx. #Acute diarrhea: ?C. difficile, improved on vancomycin p.o. Diarrhea improved, Cdiff test was not able to be done. #Necrotic, infected sacral decubitus ulcer: underwent debridement 10/29/2020, also noted to have brittle coccyx consistent with osteomyelitis. #UTI: UA with significant pyuria. #FAZAL: resolved #PVD: SFA occlusion. Not a candidate for revascularization per vascular Recs: monitor off antibiotics after completing PO Vancomycin today. Stephania Starr MD, FACP [facility] ([facility] O: [phone] F: [phone] Subjective Date of service: 11/24/20 Principal diagnosis: Acute Resp Fail, PNA, Septic Shock, Sacral Ulcer, AF with RVR Interval history: No fever. Opens eyes. On vent via trach. Objective - Exam Narrative Exam: Physical Exam: Constitutional: awake, on the vent Head, Ears, Nose: Normocephalic, atraumatic. External ears, nose normal Eyes: Conjunctivae/corneas clear. No icterus. No ptosis. Neck: trach Oral: limited Cardiovascular: S1, S2 + Respiratory: AE fair bilaterally and equal GI: Soft, bowel sounds + Musculoskeletal: Anasarca. Bilateral lower extremities with wounds, ischemic digits Skin: No rash or abscess Hem/Lymphatic: No palpable cervical or supraclavicular nodes. No lymphangitis Psych: no agitation Neurological: awake, on the vent via trach. - Constitutional Vitals: Vital Signs Temp Pulse Resp BP Pulse Ox 98.9 F 106 H 13 99/60 98 11/24/20 08:00 11/24/20 08:00 11/24/20 07:00 11/24/20 08:00 11/24/20 08:00 Temperature -Last 24 Hours Temperature 98.9 F Temperature 99.0 F Temperature 98.9 F Temperature 98.1 F Temperature 98.1 F Temperature 98.3 F - Labs CBC & Chem 7: 11/23/20 10:23 11/23/20 10:23 Labs: Abnormal lab results 11/23/20 11/23/20 11/23/20 Range/Units 10:23 11:53 23:19 Seg Neuts % (Manual) 94.0 H (40.0-70.0) % Lymphocytes % (Manual) 5.0 L (13.4-35.0) % Seg Neutrophils # Man 10.6 H (1.8-7.7) K/mm3 Lymphocytes # (Manual) 0.6 L (1.2-5.4) K/mm3 POC Glucose 112 H 120 H (70-105) mg/dL 11/24/20 Range/Units 05:31 Seg Neuts % (Manual) (40.0-70.0) % Lymphocytes % (Manual) (13.4-35.0) % Seg Neutrophils # Man (1.8-7.7) K/mm3 Lymphocytes # (Manual) (1.2-5.4) K/mm3 POC Glucose 132 H (70-105) mg/dL
--- NOTE | 2020-11-24 11:50 | Progress Note ---
Assessment and Plan 11/21/20 Pt is s/p Trach & PEG ventilated, unresponsive. Tele reviewed: Afib 100s. No events overnight. Afib with RVR. Continue Amio 400mg PO BID. Wean as tolerated. No systemic AC at this time in setting of anemia requiring PRBC tx, thrombocytopenia and sacral ulcer. No BB due to soft blood pressure. Will consider addition of BB if/when able to tolerate. Pt has had bradycardic episodes with BB. Elevated Troponin Considering pt's advanced age and comorbidities will plan for conservative cardiac management. Anemia requiring transfusion Continue to hold AC in setting of anemia requiring transfusions. Acute Respiratory Failure s/p Trach. Ventilated. Pneumonia ABx per ID. Tracheal aspirate is positive for MRSA DVT Prophylaxis. On Lovenox DVT prophylaxis. SCDs in place. Will follow The patient has been seen in conjunction with Dr. Landa who agrees with the assessment and plan of care. The high probability of a clinically significant, sudden or life threatening deterioration of the system(s) required my full and direct attention, intervention and personal management. The aggregate critical care time was [35] minutes. This time includes the following: [x] Data Review and interpretation [x] Patient assessment and monitoring of vital signs [x] Documentation [x] Medication orders and management - Patient Problems (1) AMS (altered mental status) Current Visit: Yes Status: Acute (2) Atrial fibrillation with RVR Current Visit: Yes Status: Acute Currently in SR with PJCs. No AC in setting of anemia. (3) Acute respiratory failure Current Visit: Yes Status: Acute (4) Bilateral pneumonia Current Visit: Yes Status: Acute (5) Sepsis Current Visit: Yes Status: Acute (6) Sepsis associated hypotension Current Visit: Yes Status: Acute Pt is requiring Levophed titration to maintain pressure (7) Sacral decubitus ulcer, stage IV Current Visit: Yes Status: Acute (8) UTI (urinary tract infection) Current Visit: Yes Status: Acute (9) FAZAL (acute kidney injury) Current Visit: Yes Status: Acute (10) Hypomagnesemia Current Visit: Yes Status: Acute (11) Anemia Current Visit: Yes Status: Acute (12) Thrombocytopenia Current Visit: Yes Status: Acute Subjective Date of service: 11/24/20 Principal diagnosis: Acute Resp Fail, PNA, Septic Shock, Sacral Ulcer, AF with RVR Interval history: Pt is s/p Trach & PEG ventilated, unresponsive. Tele reviewed: Afib 100s. No events overnight. Objective Last Vital Signs Temp 98.9 F 11/24/20 08:00 Pulse 106 H 11/24/20 08:00 Resp 13 11/24/20 07:00 BP 99/60 11/24/20 08:00 Pulse Ox 98 11/24/20 08:00 - Physical Examination General: No Apparent Distress, Other (intubated) HEENT: Positive: EOMI, Normocephaly, Mucus Membranes Moist Neck: Positive: neck supple, trachea midline Cardiac: Positive: irregularly irregular, S1/S2 Lungs: Positive: Ventilated Respirations Neuro: Positive: Other (lethargic) Abdomen: Positive: Soft, Active Bowel Sounds. Negative: Tender Skin: Positive: Wound (sacral). Negative: Rash Musculoskeletal: No Fluid Collection, No Pain Extremities: Present: upper extr. pulses, lower extr. pulses, +1 Edema, Other (chronic skin changes noted) - Imaging and Cardiology EKG: report reviewed, image reviewed Echo: report reviewed (10/28/2020- EF 55-60%, no significant valvular abnormalities) - Telemetry EKG Rhythm: Atrial Fibrillation Repolarization changes or abnormalities: nonspecific abnormality, ST segment, and/or T wave - Allied health notes Allied health notes reviewed: nursing
--- NOTE | 2020-11-24 12:33 | Progress Note ---
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 ABG Glucose Oxyhemoglobin Carboxyhemoglobin Sodium Potassium Chloride 108.4 H Carbon Dioxide BUN 25 H Creatinine 0.5 L Glucose 140 H POC Glucose 140 H Lactic Acid Calcium 6.1 L Phosphorus Magnesium 1.50 L Total Creatine Kinase Troponin T Total Protein Albumin Triglycerides LDL Cholesterol Direct HDL Cholesterol Arterial Blood Glucose Arterial Blood Ionized Calcium Urine pH Urine WBC (Auto) Vancomycin Trough Salicylates Acetaminophen Crossmatch 10/31/20 10/31/20 10/31/20 11:12 18:50 23:21 WBC RBC Hgb Hct MCV MCH MCHC RDW Plt Count Lymph % (Auto) Seg Neutrophils % Seg Neuts % (Manual) Lymphocytes % (Manual) Nucleated RBC % Seg Neutrophils # Seg Neutrophils # Man Lymphocytes # (Manual) Monocytes # (Manual) PT INR ABG pH POC ABG pCO2 POC ABG pO2 ABG pO2 ABG HCO3 ABG O2 Saturation ABG Base Excess ABG Hemoglobin ABG Oxyhemoglobin ABG Sodium ABG Potassium ABG Chloride ABG Glucose Oxyhemoglobin Carboxyhemoglobin Sodium Potassium Chloride Carbon Dioxide BUN Creatinine Glucose POC Glucose 125 H 142 H 127 H Lactic Acid Calcium Phosphorus Magnesium Total Creatine Kinase Troponin T Total Protein Albumin Triglycerides LDL Cholesterol Direct HDL Cholesterol Arterial Blood Glucose Arterial Blood Ionized Calcium Urine pH Urine WBC (Auto) Vancomycin Trough Salicylates Acetaminophen Crossmatch 10/31/20 11/01/20 11/01/20 Unknown 03:40 04:21 WBC RBC Hgb Hct MCV MCH MCHC RDW Plt Count Lymph % (Auto) Seg Neutrophils % Seg Neuts % (Manual) Lymphocytes % (Manual) Nucleated RBC % Seg Neutrophils # Seg Neutrophils # Man Lymphocytes # (Manual) Monocytes # (Manual) PT INR ABG pH 7.489 H POC ABG pCO2 POC ABG pO2 ABG pO2 77.2 L ABG HCO3 ABG O2 Saturation ABG Base Excess ABG Hemoglobin 7.1 L ABG Oxyhemoglobin ABG Sodium ABG Potassium ABG Chloride ABG Glucose Oxyhemoglobin Carboxyhemoglobin Sodium Potassium 3.1 L Chloride 107.1 H Carbon Dioxide BUN 25 H Creatinine 0.5 L Glucose 148 H POC Glucose Lactic Acid 4.30 H* Calcium 6.0 L Phosphorus Magnesium Total Creatine Kinase Troponin T Total Protein Albumin Triglycerides LDL Cholesterol Direct HDL Cholesterol Arterial Blood Glucose Arterial Blood Ionized Calcium Urine pH Urine WBC (Auto) Vancomycin Trough Salicylates Acetaminophen Crossmatch 11/01/20 11/01/20 11/01/20 05:13 11:42 17:38 WBC RBC Hgb Hct MCV MCH MCHC RDW Plt Count Lymph % (Auto) Seg Neutrophils % Seg Neuts % (Manual) Lymphocytes % (Manual) Nucleated RBC % Seg Neutrophils # Seg Neutrophils # Man Lymphocytes # (Manual) Monocytes # (Manual) PT INR ABG pH POC ABG pCO2 POC ABG pO2 ABG pO2 ABG HCO3 ABG O2 Saturation ABG Base Excess ABG Hemoglobin ABG Oxyhemoglobin ABG Sodium ABG Potassium ABG Chloride ABG Glucose Oxyhemoglobin Carboxyhemoglobin Sodium Potassium Chloride Carbon Dioxide BUN Creatinine Glucose POC Glucose 139 H 139 H 161 H Lactic Acid Calcium Phosphorus Magnesium Total Creatine Kinase Troponin T Total Protein Albumin Triglycerides LDL Cholesterol Direct HDL Cholesterol Arterial Blood Glucose Arterial Blood Ionized Calcium Urine pH Urine WBC (Auto) Vancomycin Trough Salicylates Acetaminophen Crossmatch 11/01/20 11/01/20 11/02/20 23:20 Unknown 04:30 WBC 18.2 H RBC 3.27 L Hgb 9.9 L Hct 30.1 L D MCV MCH MCHC RDW 15.7 H Plt Count 34 L Lymph % (Auto) Seg Neutrophils % Seg Neuts % (Manual) Lymphocytes % (Manual) Nucleated RBC % Seg Neutrophils # Seg Neutrophils # Man Lymphocytes # (Manual) Monocytes # (Manual) PT INR ABG pH 7.456 H POC ABG pCO2 POC ABG pO2 ABG pO2 ABG HCO3 ABG O2 Saturation ABG Base Excess ABG Hemoglobin 9.2 L ABG Oxyhemoglobin ABG Sodium ABG Potassium ABG Chloride ABG Glucose Oxyhemoglobin Carboxyhemoglobin Sodium Potassium Chloride Carbon Dioxide BUN Creatinine Glucose POC Glucose 168 H Lactic Acid Calcium Phosphorus Magnesium Total Creatine Kinase Troponin T Total Protein Albumin Triglycerides LDL Cholesterol Direct HDL Cholesterol Arterial Blood Glucose Arterial Blood Ionized Calcium Urine pH Urine WBC (Auto) Vancomycin Trough Salicylates Acetaminophen Crossmatch 11/02/20 11/02/20 11/02/20 06:29 08:40 08:40 WBC 16.6 H RBC 2.87 L Hgb 8.8 L Hct 26.6 L MCV MCH MCHC RDW 15.8 H Plt Count 30 L Lymph % (Auto) Seg Neutrophils % Seg Neuts % (Manual) 97.0 H Lymphocytes % (Manual) 2.0 L Nucleated RBC % 1.0 H Seg Neutrophils # Seg Neutrophils # Man 16.1 H Lymphocytes # (Manual) 0.3 L Monocytes # (Manual) PT INR ABG pH POC ABG pCO2 POC ABG pO2 ABG pO2 ABG HCO3 ABG O2 Saturation ABG Base Excess ABG Hemoglobin ABG Oxyhemoglobin ABG Sodium ABG Potassium ABG Chloride ABG Glucose Oxyhemoglobin Carboxyhemoglobin Sodium Potassium 2.4 L* D Chloride 110.2 H Carbon Dioxide BUN 23 H Creatinine 0.4 L Glucose 154 H POC Glucose 131 H Lactic Acid Calcium 6.1 L Phosphorus Magnesium 1.50 L Total Creatine Kinase Troponin T Total Protein Albumin Triglycerides LDL Cholesterol Direct HDL Cholesterol Arterial Blood Glucose Arterial Blood Ionized Calcium Urine pH Urine WBC (Auto) Vancomycin Trough Salicylates Acetaminophen Crossmatch 11/02/20 11/02/20 11/02/20 13:17 17:25 18:05 WBC RBC Hgb Hct MCV MCH MCHC RDW Plt Count Lymph % (Auto) Seg Neutrophils % Seg Neuts % (Manual) Lymphocytes % (Manual) Nucleated RBC % Seg Neutrophils # Seg Neutrophils # Man Lymphocytes # (Manual) Monocytes # (Manual) PT INR ABG pH POC ABG pCO2 POC ABG pO2 ABG pO2 ABG HCO3 ABG O2 Saturation ABG Base Excess ABG Hemoglobin ABG Oxyhemoglobin ABG Sodium ABG Potassium ABG Chloride ABG Glucose Oxyhemoglobin Carboxyhemoglobin Sodium Potassium 3.1 L D Chloride Carbon Dioxide BUN Creatinine Glucose POC Glucose 134 H 140 H Lactic Acid Calcium Phosphorus Magnesium Total Creatine Kinase Troponin T Total Protein Albumin Triglycerides LDL Cholesterol Direct HDL Cholesterol Arterial Blood Glucose Arterial Blood Ionized Calcium Urine pH Urine WBC (Auto) Vancomycin Trough Salicylates Acetaminophen Crossmatch 11/02/20 11/03/20 11/03/20 23:36 04:15 05:07 WBC RBC Hgb Hct MCV MCH MCHC RDW Plt Count Lymph % (Auto) Seg Neutrophils % Seg Neuts % (Manual) Lymphocytes % (Manual) Nucleated RBC % Seg Neutrophils # Seg Neutrophils # Man Lymphocytes # (Manual) Monocytes # (Manual) PT INR ABG pH POC ABG pCO2 POC ABG pO2 ABG pO2 ABG HCO3 ABG O2 Saturation ABG Base Excess ABG Hemoglobin ABG Oxyhemoglobin ABG Sodium ABG Potassium ABG Chloride ABG Glucose Oxyhemoglobin Carboxyhemoglobin Sodium Potassium 3.0 L Chloride 111.8 H Carbon Dioxide BUN 24 H Creatinine 0.3 L Glucose 141 H POC Glucose 127 H 156 H Lactic Acid Calcium 5.8 L* Phosphorus Magnesium 1.60 L Total Creatine Kinase Troponin T Total Protein Albumin Triglycerides LDL Cholesterol Direct HDL Cholesterol Arterial Blood Glucose Arterial Blood Ionized Calcium Urine pH Urine WBC (Auto) Vancomycin Trough Salicylates Acetaminophen Crossmatch 11/03/20 11/03/20 11/04/20 11:14 17:31 00:17 WBC RBC Hgb Hct MCV MCH MCHC RDW Plt Count Lymph % (Auto) Seg Neutrophils % Seg Neuts % (Manual) Lymphocytes % (Manual) Nucleated RBC % Seg Neutrophils # Seg Neutrophils # Man Lymphocytes # (Manual) Monocytes # (Manual) PT INR ABG pH POC ABG pCO2 POC ABG pO2 ABG pO2 ABG HCO3 ABG O2 Saturation ABG Base Excess ABG Hemoglobin ABG Oxyhemoglobin ABG Sodium ABG Potassium ABG Chloride ABG Glucose Oxyhemoglobin Carboxyhemoglobin Sodium Potassium Chloride Carbon Dioxide BUN Creatinine Glucose POC Glucose 137 H 151 H 156 H Lactic Acid Calcium Phosphorus Magnesium Total Creatine Kinase Troponin T Total Protein Albumin Triglycerides LDL Cholesterol Direct HDL Cholesterol Arterial Blood Glucose Arterial Blood Ionized Calcium Urine pH Urine WBC (Auto) Vancomycin Trough Salicylates Acetaminophen Crossmatch 11/04/20 11/04/20 11/04/20 05:34 05:34 11:16 WBC 21.9 H RBC 2.67 L Hgb 8.2 L Hct 24.8 L MCV MCH MCHC RDW 15.6 H Plt Count 48 L Lymph % (Auto) Seg Neutrophils % Seg Neuts % (Manual) Lymphocytes % (Manual) Nucleated RBC % Seg Neutrophils # Seg Neutrophils # Man Lymphocytes # (Manual) Monocytes # (Manual) PT INR ABG pH POC ABG pCO2 POC ABG pO2 ABG pO2 ABG HCO3 ABG O2 Saturation ABG Base Excess ABG Hemoglobin ABG Oxyhemoglobin ABG Sodium ABG Potassium ABG Chloride ABG Glucose Oxyhemoglobin Carboxyhemoglobin Sodium 146 H Potassium Chloride 114.6 H Carbon Dioxide BUN 29 H Creatinine 0.3 L Glucose 173 H POC Glucose 156 H Lactic Acid Calcium 5.7 L* Phosphorus Magnesium Total Creatine Kinase Troponin T Total Protein Albumin Triglycerides LDL Cholesterol Direct HDL Cholesterol Arterial Blood Glucose Arterial Blood Ionized Calcium Urine pH Urine WBC (Auto) Vancomycin Trough Salicylates Acetaminophen Crossmatch 11/04/20 11/04/20 11/04/20 11:42 17:18 23:12 WBC RBC Hgb Hct MCV MCH MCHC RDW Plt Count Lymph % (Auto) Seg Neutrophils % Seg Neuts % (Manual) Lymphocytes % (Manual) Nucleated RBC % Seg Neutrophils # Seg Neutrophils # Man Lymphocytes # (Manual) Monocytes # (Manual) PT INR ABG pH 7.525 H POC ABG pCO2 28.9 L POC ABG pO2 64.3 L ABG pO2 ABG HCO3 ABG O2 Saturation ABG Base Excess ABG Hemoglobin 8.2 L ABG Oxyhemoglobin ABG Sodium ABG Potassium 3.3 L ABG Chloride 115.0 H ABG Glucose 165 H Oxyhemoglobin Carboxyhemoglobin Sodium Potassium Chloride Carbon Dioxide BUN Creatinine Glucose POC Glucose 144 H 155 H Lactic Acid Calcium Phosphorus Magnesium Total Creatine Kinase Troponin T Total Protein Albumin Triglycerides LDL Cholesterol Direct HDL Cholesterol Arterial Blood Glucose 165 H Arterial Blood Ionized Calcium 4.0 L Urine pH Urine WBC (Auto) Vancomycin Trough Salicylates Acetaminophen Crossmatch 11/05/20 11/05/20 11/05/20 04:48 04:48 05:57 WBC 17.4 H RBC 2.49 L Hgb 7.8 L Hct 23.5 L MCV MCH MCHC RDW 16.0 H Plt Count 69 L Lymph % (Auto) Seg Neutrophils % Seg Neuts % (Manual) Lymphocytes % (Manual) Nucleated RBC % Seg Neutrophils # Seg Neutrophils # Man Lymphocytes # (Manual) Monocytes # (Manual) PT INR ABG pH POC ABG pCO2 POC ABG pO2 ABG pO2 ABG HCO3 ABG O2 Saturation ABG Base Excess ABG Hemoglobin ABG Oxyhemoglobin ABG Sodium ABG Potassium ABG Chloride ABG Glucose Oxyhemoglobin Carboxyhemoglobin Sodium 147 H Potassium 3.5 L Chloride 115.4 H Carbon Dioxide BUN 34 H Creatinine 0.3 L Glucose 154 H POC Glucose 146 H Lactic Acid Calcium 6.1 L Phosphorus 2.00 L Magnesium Total Creatine Kinase Troponin T Total Protein Albumin Triglycerides LDL Cholesterol Direct HDL Cholesterol Arterial Blood Glucose Arterial Blood Ionized Calcium Urine pH Urine WBC (Auto) Vancomycin Trough Salicylates Acetaminophen Crossmatch 11/05/20 11/05/20 11/05/20 11:33 17:52 23:37 WBC RBC Hgb Hct MCV MCH MCHC RDW Plt Count Lymph % (Auto) Seg Neutrophils % Seg Neuts % (Manual) Lymphocytes % (Manual) Nucleated RBC % Seg Neutrophils # Seg Neutrophils # Man Lymphocytes # (Manual) Monocytes # (Manual) PT INR ABG pH POC ABG pCO2 POC ABG pO2 ABG pO2 ABG HCO3 ABG O2 Saturation ABG Base Excess ABG Hemoglobin ABG Oxyhemoglobin ABG Sodium ABG Potassium ABG Chloride ABG Glucose Oxyhemoglobin Carboxyhemoglobin Sodium Potassium Chloride Carbon Dioxide BUN Creatinine Glucose POC Glucose 144 H 136 H 151 H Lactic Acid Calcium Phosphorus Magnesium Total Creatine Kinase Troponin T Total Protein Albumin Triglycerides LDL Cholesterol Direct HDL Cholesterol Arterial Blood Glucose Arterial Blood Ionized Calcium Urine pH Urine WBC (Auto) Vancomycin Trough Salicylates Acetaminophen Crossmatch 11/06/20 11/06/20 11/06/20 05:36 06:45 06:45 WBC 15.0 H RBC 2.33 L Hgb 7.2 L Hct 22.1 L MCV 95 H MCH MCHC RDW 16.2 H Plt Count 103 L Lymph % (Auto) Seg Neutrophils % Seg Neuts % (Manual) Lymphocytes % (Manual) Nucleated RBC % Seg Neutrophils # Seg Neutrophils # Man Lymphocytes # (Manual) Monocytes # (Manual) PT INR ABG pH POC ABG pCO2 POC ABG pO2 ABG pO2 ABG HCO3 ABG O2 Saturation ABG Base Excess ABG Hemoglobin ABG Oxyhemoglobin ABG Sodium ABG Potassium ABG Chloride ABG Glucose Oxyhemoglobin Carboxyhemoglobin Sodium 148 H Potassium Chloride 118.2 H Carbon Dioxide BUN 32 H Creatinine 0.4 L Glucose 153 H POC Glucose 140 H Lactic Acid Calcium 6.4 L Phosphorus 0.90 L* D Magnesium Total Creatine Kinase Troponin T Total Protein 5.0 L Albumin 1.4 L Triglycerides LDL Cholesterol Direct HDL Cholesterol Arterial Blood Glucose Arterial Blood Ionized Calcium Urine pH Urine WBC (Auto) Vancomycin Trough Salicylates Acetaminophen Crossmatch 11/06/20 11/06/20 11/06/20 11:32 17:37 23:19 WBC RBC Hgb Hct MCV MCH MCHC RDW Plt Count Lymph % (Auto) Seg Neutrophils % Seg Neuts % (Manual) Lymphocytes % (Manual) Nucleated RBC % Seg Neutrophils # Seg Neutrophils # Man Lymphocytes # (Manual) Monocytes # (Manual) PT INR ABG pH POC ABG pCO2 POC ABG pO2 ABG pO2 ABG HCO3 ABG O2 Saturation ABG Base Excess ABG Hemoglobin ABG Oxyhemoglobin ABG Sodium ABG Potassium ABG Chloride ABG Glucose Oxyhemoglobin Carboxyhemoglobin Sodium Potassium Chloride Carbon Dioxide BUN Creatinine Glucose POC Glucose 132 H 133 H 145 H Lactic Acid Calcium Phosphorus Magnesium Total Creatine Kinase Troponin T Total Protein Albumin Triglycerides LDL Cholesterol Direct HDL Cholesterol Arterial Blood Glucose Arterial Blood Ionized Calcium Urine pH Urine WBC (Auto) Vancomycin Trough Salicylates Acetaminophen Crossmatch 11/07/20 11/07/20 11/07/20 12:55 16:45 16:45 WBC 12.0 H RBC 3.63 L Hgb 11.4 L D Hct MCV 104 H MCH MCHC 30 L RDW 18.0 H Plt Count 133 L Lymph % (Auto) Seg Neutrophils % Seg Neuts % (Manual) Lymphocytes % (Manual) Nucleated RBC % Seg Neutrophils # Seg Neutrophils # Man Lymphocytes # (Manual) Monocytes # (Manual) PT INR ABG pH POC ABG pCO2 POC ABG pO2 ABG pO2 ABG HCO3 ABG O2 Saturation ABG Base Excess ABG Hemoglobin 7.7 L ABG Oxyhemoglobin ABG Sodium ABG Potassium ABG Chloride ABG Glucose Oxyhemoglobin 94.9 L Carboxyhemoglobin Sodium 149 H Potassium Chloride 119.8 H Carbon Dioxide BUN 31 H Creatinine 0.4 L Glucose 130 H POC Glucose Lactic Acid Calcium 6.5 L Phosphorus Magnesium Total Creatine Kinase Troponin T Total Protein Albumin Triglycerides LDL Cholesterol Direct HDL Cholesterol Arterial Blood Glucose Arterial Blood Ionized Calcium Urine pH Urine WBC (Auto) Vancomycin Trough Salicylates Acetaminophen Crossmatch 11/07/20 11/08/20 11/08/20 17:23 00:12 06:11 WBC RBC Hgb Hct MCV MCH MCHC RDW Plt Count Lymph % (Auto) Seg Neutrophils % Seg Neuts % (Manual) Lymphocytes % (Manual) Nucleated RBC % Seg Neutrophils # Seg Neutrophils # Man Lymphocytes # (Manual) Monocytes # (Manual) PT INR ABG pH POC ABG pCO2 POC ABG pO2 ABG pO2 ABG HCO3 ABG O2 Saturation ABG Base Excess ABG Hemoglobin ABG Oxyhemoglobin ABG Sodium ABG Potassium ABG Chloride ABG Glucose Oxyhemoglobin Carboxyhemoglobin Sodium Potassium Chloride Carbon Dioxide BUN Creatinine Glucose POC Glucose 115 H 129 H 109 H Lactic Acid Calcium Phosphorus Magnesium Total Creatine Kinase Troponin T Total Protein Albumin Triglycerides LDL Cholesterol Direct HDL Cholesterol Arterial Blood Glucose Arterial Blood Ionized Calcium Urine pH Urine WBC (Auto) Vancomycin Trough Salicylates Acetaminophen Crossmatch 11/08/20 11/08/20 11/08/20 17:36 23:49 23:58 WBC RBC Hgb Hct MCV MCH MCHC RDW Plt Count Lymph % (Auto) Seg Neutrophils % Seg Neuts % (Manual) Lymphocytes % (Manual) Nucleated RBC % Seg Neutrophils # Seg Neutrophils # Man Lymphocytes # (Manual) Monocytes # (Manual) PT INR ABG pH POC ABG pCO2 POC ABG pO2 ABG pO2 ABG HCO3 ABG O2 Saturation ABG Base Excess ABG Hemoglobin ABG Oxyhemoglobin ABG Sodium ABG Potassium ABG Chloride ABG Glucose Oxyhemoglobin Carboxyhemoglobin Sodium Potassium Chloride Carbon Dioxide BUN Creatinine Glucose 138 H POC Glucose 38 L 36 L Lactic Acid Calcium Phosphorus Magnesium Total Creatine Kinase Troponin T Total Protein Albumin Triglycerides LDL Cholesterol Direct HDL Cholesterol Arterial Blood Glucose Arterial Blood Ionized Calcium Urine pH Urine WBC (Auto) Vancomycin Trough Salicylates Acetaminophen Crossmatch 11/09/20 11/09/20 11/09/20 05:33 06:00 06:00 WBC 13.1 H RBC 2.35 L Hgb 7.6 L D Hct 22.9 L D MCV 97 H MCH MCHC RDW 16.8 H Plt Count Lymph % (Auto) 9.1 L Seg Neutrophils % 84.8 H Seg Neuts % (Manual) Lymphocytes % (Manual) Nucleated RBC % Seg Neutrophils # 11.1 H Seg Neutrophils # Man Lymphocytes # (Manual) Monocytes # (Manual) PT INR ABG pH POC ABG pCO2 POC ABG pO2 ABG pO2 ABG HCO3 ABG O2 Saturation ABG Base Excess ABG Hemoglobin ABG Oxyhemoglobin ABG Sodium ABG Potassium ABG Chloride ABG Glucose Oxyhemoglobin Carboxyhemoglobin Sodium 150 H Potassium 3.4 L D Chloride 119.2 H Carbon Dioxide BUN 30 H Creatinine 0.4 L Glucose 137 H POC Glucose 58 L Lactic Acid Calcium 7.2 L Phosphorus Magnesium Total Creatine Kinase Troponin T Total Protein Albumin Triglycerides LDL Cholesterol Direct HDL Cholesterol Arterial Blood Glucose Arterial Blood Ionized Calcium Urine pH Urine WBC (Auto) Vancomycin Trough Salicylates Acetaminophen Crossmatch 11/09/20 11/09/20 11/10/20 06:08 22:16 13:46 WBC 16.1 H RBC 2.52 L Hgb 8.1 L Hct 25.2 L MCV 100 H MCH MCHC RDW 18.2 H Plt Count Lymph % (Auto) Seg Neutrophils % Seg Neuts % (Manual) 90.0 H Lymphocytes % (Manual) 3.0 L Nucleated RBC % Seg Neutrophils # Seg Neutrophils # Man 14.5 H Lymphocytes # (Manual) 0.5 L Monocytes # (Manual) 1.1 H PT INR ABG pH POC ABG pCO2 POC ABG pO2 ABG pO2 ABG HCO3 ABG O2 Saturation ABG Base Excess ABG Hemoglobin ABG Oxyhemoglobin ABG Sodium ABG Potassium ABG Chloride ABG Glucose Oxyhemoglobin Carboxyhemoglobin Sodium Potassium Chloride Carbon Dioxide BUN Creatinine Glucose POC Glucose 122 H 120 H Lactic Acid Calcium Phosphorus Magnesium Total Creatine Kinase Troponin T Total Protein Albumin Triglycerides LDL Cholesterol Direct HDL Cholesterol Arterial Blood Glucose Arterial Blood Ionized Calcium Urine pH Urine WBC (Auto) Vancomycin Trough Salicylates Acetaminophen Crossmatch 11/10/20 11/10/20 11/11/20 13:46 15:59 11:43 WBC RBC Hgb Hct MCV MCH MCHC RDW Plt Count Lymph % (Auto) Seg Neutrophils % Seg Neuts % (Manual) Lymphocytes % (Manual) Nucleated RBC % Seg Neutrophils # Seg Neutrophils # Man Lymphocytes # (Manual) Monocytes # (Manual) PT INR ABG pH POC ABG pCO2 POC ABG pO2 ABG pO2 ABG HCO3 ABG O2 Saturation ABG Base Excess ABG Hemoglobin ABG Oxyhemoglobin ABG Sodium ABG Potassium ABG Chloride ABG Glucose Oxyhemoglobin Carboxyhemoglobin Sodium 153 H Potassium Chloride 120.6 H Carbon Dioxide BUN 27 H Creatinine 0.3 L Glucose 112 H POC Glucose 40 L 124 H Lactic Acid Calcium 6.8 L Phosphorus Magnesium Total Creatine Kinase Troponin T Total Protein Albumin Triglycerides LDL Cholesterol Direct HDL Cholesterol Arterial Blood Glucose Arterial Blood Ionized Calcium Urine pH Urine WBC (Auto) Vancomycin Trough Salicylates Acetaminophen Crossmatch 11/11/20 11/11/20 11/11/20 14:38 14:38 14:38 WBC 13.8 H RBC 2.43 L Hgb 7.6 L Hct 24.0 L MCV 99 H MCH MCHC RDW 18.0 H Plt Count Lymph % (Auto) Seg Neutrophils % Seg Neuts % (Manual) Lymphocytes % (Manual) Nucleated RBC % Seg Neutrophils # Seg Neutrophils # Man Lymphocytes # (Manual) Monocytes # (Manual) PT 15.0 H INR 1.18 H ABG pH POC ABG pCO2 POC ABG pO2 ABG pO2 ABG HCO3 ABG O2 Saturation ABG Base Excess ABG Hemoglobin ABG Oxyhemoglobin ABG Sodium ABG Potassium ABG Chloride ABG Glucose Oxyhemoglobin Carboxyhemoglobin Sodium 154 H Potassium 3.1 L D Chloride 122.1 H Carbon Dioxide BUN 26 H Creatinine 0.4 L Glucose 140 H POC Glucose Lactic Acid Calcium 7.3 L Phosphorus Magnesium Total Creatine Kinase Troponin T Total Protein Albumin Triglycerides LDL Cholesterol Direct HDL Cholesterol Arterial Blood Glucose Arterial Blood Ionized Calcium Urine pH Urine WBC (Auto) Vancomycin Trough Salicylates Acetaminophen Crossmatch 11/11/20 11/11/20 11/12/20 18:39 18:42 00:03 WBC RBC Hgb Hct MCV MCH MCHC RDW Plt Count Lymph % (Auto) Seg Neutrophils % Seg Neuts % (Manual) Lymphocytes % (Manual) Nucleated RBC % Seg Neutrophils # Seg Neutrophils # Man Lymphocytes # (Manual) Monocytes # (Manual) PT INR ABG pH POC ABG pCO2 POC ABG pO2 ABG pO2 ABG HCO3 ABG O2 Saturation ABG Base Excess ABG Hemoglobin ABG Oxyhemoglobin ABG Sodium ABG Potassium ABG Chloride ABG Glucose Oxyhemoglobin Carboxyhemoglobin Sodium Potassium Chloride Carbon Dioxide BUN Creatinine Glucose POC Glucose 45 L 66 L 108 H Lactic Acid Calcium Phosphorus Magnesium Total Creatine Kinase Troponin T Total Protein Albumin Triglycerides LDL Cholesterol Direct HDL Cholesterol Arterial Blood Glucose Arterial Blood Ionized Calcium Urine pH Urine WBC (Auto) Vancomycin Trough Salicylates Acetaminophen Crossmatch 11/12/20 11/12/20 11/12/20 05:44 08:33 08:33 WBC 13.4 H RBC 2.35 L Hgb 7.5 L Hct 23.7 L MCV 101 H MCH MCHC RDW 19.7 H Plt Count Lymph % (Auto) Seg Neutrophils % Seg Neuts % (Manual) Lymphocytes % (Manual) Nucleated RBC % Seg Neutrophils # Seg Neutrophils # Man Lymphocytes # (Manual) Monocytes # (Manual) PT INR ABG pH POC ABG pCO2 POC ABG pO2 ABG pO2 ABG HCO3 ABG O2 Saturation ABG Base Excess ABG Hemoglobin ABG Oxyhemoglobin ABG Sodium ABG Potassium ABG Chloride ABG Glucose Oxyhemoglobin Carboxyhemoglobin Sodium 154 H Potassium 2.9 L* Chloride 121.4 H Carbon Dioxide BUN 26 H Creatinine 0.4 L Glucose 153 H POC Glucose 114 H Lactic Acid Calcium 7.3 L Phosphorus Magnesium Total Creatine Kinase Troponin T Total Protein Albumin Triglycerides LDL Cholesterol Direct HDL Cholesterol Arterial Blood Glucose Arterial Blood Ionized Calcium Urine pH Urine WBC (Auto) Vancomycin Trough Salicylates Acetaminophen Crossmatch 11/12/20 11/12/20 11/13/20 11:38 17:17 05:28 WBC RBC Hgb Hct MCV MCH MCHC RDW Plt Count Lymph % (Auto) Seg Neutrophils % Seg Neuts % (Manual) Lymphocytes % (Manual) Nucleated RBC % Seg Neutrophils # Seg Neutrophils # Man Lymphocytes # (Manual) Monocytes # (Manual) PT INR ABG pH POC ABG pCO2 51.4 H POC ABG pO2 41.7 L ABG pO2 ABG HCO3 ABG O2 Saturation ABG Base Excess ABG Hemoglobin 9.1 L ABG Oxyhemoglobin 72.2 L ABG Sodium 151.1 H ABG Potassium 3.2 L ABG Chloride 122.0 H ABG Glucose 191 H Oxyhemoglobin Carboxyhemoglobin Sodium Potassium Chloride Carbon Dioxide BUN Creatinine Glucose POC Glucose 125 H 127 H Lactic Acid Calcium Phosphorus Magnesium Total Creatine Kinase Troponin T Total Protein Albumin Triglycerides LDL Cholesterol Direct HDL Cholesterol Arterial Blood Glucose 191 H Arterial Blood Ionized Calcium Urine pH Urine WBC (Auto) Vancomycin Trough Salicylates Acetaminophen Crossmatch 11/13/20 11/13/20 11/13/20 10:46 23:15 23:15 WBC 12.2 H RBC 2.41 L Hgb 7.7 L Hct 24.5 L MCV 102 H MCH MCHC RDW 23.0 H Plt Count Lymph % (Auto) Seg Neutrophils % Seg Neuts % (Manual) Lymphocytes % (Manual) Nucleated RBC % Seg Neutrophils # Seg Neutrophils # Man Lymphocytes # (Manual) Monocytes # (Manual) PT INR ABG pH POC ABG pCO2 POC ABG pO2 ABG pO2 ABG HCO3 ABG O2 Saturation ABG Base Excess ABG Hemoglobin ABG Oxyhemoglobin ABG Sodium ABG Potassium ABG Chloride ABG Glucose Oxyhemoglobin Carboxyhemoglobin Sodium Potassium Chloride Carbon Dioxide BUN Creatinine Glucose POC Glucose 153 H Lactic Acid Calcium Phosphorus Magnesium Total Creatine Kinase Troponin T 0.123 H* Total Protein Albumin Triglycerides LDL Cholesterol Direct HDL Cholesterol Arterial Blood Glucose Arterial Blood Ionized Calcium Urine pH Urine WBC (Auto) Vancomycin Trough Salicylates Acetaminophen Crossmatch 11/13/20 11/13/20 11/14/20 23:15 Unknown 05:26 WBC RBC Hgb Hct MCV MCH MCHC RDW Plt Count Lymph % (Auto) Seg Neutrophils % Seg Neuts % (Manual) Lymphocytes % (Manual) Nucleated RBC % Seg Neutrophils # Seg Neutrophils # Man Lymphocytes # (Manual) Monocytes # (Manual) PT INR ABG pH 7.295 L POC ABG pCO2 56.0 H POC ABG pO2 49.1 L ABG pO2 ABG HCO3 ABG O2 Saturation ABG Base Excess ABG Hemoglobin 8.3 L ABG Oxyhemoglobin 77.1 L ABG Sodium 150.5 H ABG Potassium 3.3 L ABG Chloride 121.0 H ABG Glucose 187 H Oxyhemoglobin Carboxyhemoglobin Sodium 152 H Potassium 3.3 L Chloride 117.8 H Carbon Dioxide BUN 25 H Creatinine 0.4 L Glucose 123 H POC Glucose 46 L Lactic Acid Calcium 7.5 L Phosphorus Magnesium Total Creatine Kinase Troponin T Total Protein Albumin Triglycerides LDL Cholesterol Direct HDL Cholesterol Arterial Blood Glucose 187 H Arterial Blood Ionized Calcium Urine pH Urine WBC (Auto) Vancomycin Trough Salicylates Acetaminophen Crossmatch 11/14/20 11/14/20 11/14/20 06:26 22:26 22:26 WBC RBC 2.75 L Hgb 9.0 L Hct 27.8 L MCV 101 H MCH 33 H MCHC RDW 22.8 H Plt Count Lymph % (Auto) Seg Neutrophils % Seg Neuts % (Manual) Lymphocytes % (Manual) Nucleated RBC % Seg Neutrophils # Seg Neutrophils # Man Lymphocytes # (Manual) Monocytes # (Manual) PT INR ABG pH POC ABG pCO2 POC ABG pO2 ABG pO2 ABG HCO3 ABG O2 Saturation ABG Base Excess ABG Hemoglobin ABG Oxyhemoglobin ABG Sodium ABG Potassium ABG Chloride ABG Glucose Oxyhemoglobin Carboxyhemoglobin Sodium 147 H Potassium 3.3 L Chloride 114.3 H Carbon Dioxide BUN 23 H Creatinine 0.3 L Glucose 209 H POC Glucose 135 H Lactic Acid Calcium 7.4 L Phosphorus Magnesium Total Creatine Kinase Troponin T Total Protein Albumin Triglycerides LDL Cholesterol Direct HDL Cholesterol Arterial Blood Glucose Arterial Blood Ionized Calcium Urine pH Urine WBC (Auto) Vancomycin Trough Salicylates Acetaminophen Crossmatch 11/14/20 11/15/20 11/15/20 23:22 04:28 05:57 WBC RBC Hgb Hct MCV MCH MCHC RDW Plt Count Lymph % (Auto) Seg Neutrophils % Seg Neuts % (Manual) Lymphocytes % (Manual) Nucleated RBC % Seg Neutrophils # Seg Neutrophils # Man Lymphocytes # (Manual) Monocytes # (Manual) PT INR ABG pH POC ABG pCO2 POC ABG pO2 ABG pO2 ABG HCO3 ABG O2 Saturation ABG Base Excess ABG Hemoglobin ABG Oxyhemoglobin ABG Sodium ABG Potassium ABG Chloride ABG Glucose Oxyhemoglobin Carboxyhemoglobin Sodium 152 H Potassium Chloride 118.1 H Carbon Dioxide BUN 22 H Creatinine 0.3 L Glucose 190 H POC Glucose 136 H 151 H Lactic Acid Calcium 7.5 L Phosphorus Magnesium Total Creatine Kinase Troponin T Total Protein Albumin Triglycerides LDL Cholesterol Direct HDL Cholesterol Arterial Blood Glucose Arterial Blood Ionized Calcium Urine pH Urine WBC (Auto) Vancomycin Trough Salicylates Acetaminophen Crossmatch 11/15/20 11/15/20 11/15/20 11:40 16:56 21:53 WBC RBC Hgb Hct MCV MCH MCHC RDW Plt Count Lymph % (Auto) Seg Neutrophils % Seg Neuts % (Manual) Lymphocytes % (Manual) Nucleated RBC % Seg Neutrophils # Seg Neutrophils # Man Lymphocytes # (Manual) Monocytes # (Manual) PT INR ABG pH 7.457 H POC ABG pCO2 POC ABG pO2 ABG pO2 48.3 L ABG HCO3 26.1 H ABG O2 Saturation 82.9 L ABG Base Excess ABG Hemoglobin 9.7 L ABG Oxyhemoglobin ABG Sodium ABG Potassium ABG Chloride ABG Glucose Oxyhemoglobin 81.0 L Carboxyhemoglobin Sodium Potassium Chloride Carbon Dioxide BUN Creatinine Glucose POC Glucose 129 H 115 H Lactic Acid Calcium Phosphorus Magnesium Total Creatine Kinase Troponin T Total Protein Albumin Triglycerides LDL Cholesterol Direct HDL Cholesterol Arterial Blood Glucose Arterial Blood Ionized Calcium Urine pH Urine WBC (Auto) Vancomycin Trough Salicylates Acetaminophen Crossmatch 11/15/20 11/16/20 11/16/20 23:12 00:07 00:09 WBC RBC Hgb Hct MCV MCH MCHC RDW Plt Count Lymph % (Auto) Seg Neutrophils % Seg Neuts % (Manual) Lymphocytes % (Manual) Nucleated RBC % Seg Neutrophils # Seg Neutrophils # Man Lymphocytes # (Manual) Monocytes # (Manual) PT INR ABG pH POC ABG pCO2 POC ABG pO2 ABG pO2 95.1 H ABG HCO3 26.6 H ABG O2 Saturation ABG Base Excess ABG Hemoglobin 7.5 L ABG Oxyhemoglobin ABG Sodium ABG Potassium ABG Chloride ABG Glucose Oxyhemoglobin Carboxyhemoglobin Sodium Potassium Chloride Carbon Dioxide BUN Creatinine Glucose POC Glucose 13 L 153 H Lactic Acid Calcium Phosphorus Magnesium Total Creatine Kinase Troponin T Total Protein Albumin Triglycerides LDL Cholesterol Direct HDL Cholesterol Arterial Blood Glucose Arterial Blood Ionized Calcium Urine pH Urine WBC (Auto) Vancomycin Trough Salicylates Acetaminophen Crossmatch 11/16/20 11/16/20 11/16/20 03:43 04:00 04:00 WBC RBC 2.33 L Hgb 7.7 L Hct 24.5 L MCV 105 H MCH 33 H MCHC 31 L RDW 22.9 H Plt Count Lymph % (Auto) Seg Neutrophils % Seg Neuts % (Manual) Lymphocytes % (Manual) Nucleated RBC % Seg Neutrophils # Seg Neutrophils # Man Lymphocytes # (Manual) Monocytes # (Manual) PT INR ABG pH 7.348 L POC ABG pCO2 POC ABG pO2 ABG pO2 91.6 H ABG HCO3 26.3 H ABG O2 Saturation ABG Base Excess ABG Hemoglobin 7.3 L ABG Oxyhemoglobin ABG Sodium ABG Potassium ABG Chloride ABG Glucose Oxyhemoglobin Carboxyhemoglobin Sodium 148 H Potassium 3.5 L Chloride 115.9 H Carbon Dioxide BUN Creatinine 0.4 L Glucose 195 H POC Glucose Lactic Acid Calcium 7.6 L Phosphorus Magnesium Total Creatine Kinase Troponin T Total Protein Albumin Triglycerides LDL Cholesterol Direct HDL Cholesterol Arterial Blood Glucose Arterial Blood Ionized Calcium Urine pH Urine WBC (Auto) Vancomycin Trough Salicylates Acetaminophen Crossmatch 11/16/20 11/16/20 11/16/20 05:16 07:40 12:10 WBC RBC Hgb Hct MCV MCH MCHC RDW Plt Count Lymph % (Auto) Seg Neutrophils % Seg Neuts % (Manual) Lymphocytes % (Manual) Nucleated RBC % Seg Neutrophils # Seg Neutrophils # Man Lymphocytes # (Manual) Monocytes # (Manual) PT INR ABG pH POC ABG pCO2 POC ABG pO2 ABG pO2 ABG HCO3 ABG O2 Saturation ABG Base Excess ABG Hemoglobin ABG Oxyhemoglobin ABG Sodium ABG Potassium ABG Chloride ABG Glucose Oxyhemoglobin Carboxyhemoglobin Sodium Potassium Chloride Carbon Dioxide BUN Creatinine Glucose POC Glucose 61 L 122 H 140 H Lactic Acid Calcium Phosphorus Magnesium Total Creatine Kinase Troponin T Total Protein Albumin Triglycerides LDL Cholesterol Direct HDL Cholesterol Arterial Blood Glucose Arterial Blood Ionized Calcium Urine pH Urine WBC (Auto) Vancomycin Trough Salicylates Acetaminophen Crossmatch 11/16/20 11/16/20 11/17/20 17:14 23:40 04:30 WBC RBC Hgb Hct MCV MCH MCHC RDW Plt Count Lymph % (Auto) Seg Neutrophils % Seg Neuts % (Manual) Lymphocytes % (Manual) Nucleated RBC % Seg Neutrophils # Seg Neutrophils # Man Lymphocytes # (Manual) Monocytes # (Manual) PT INR ABG pH 7.470 H POC ABG pCO2 POC ABG pO2 75.4 L ABG pO2 ABG HCO3 ABG O2 Saturation ABG Base Excess ABG Hemoglobin 7 L ABG Oxyhemoglobin ABG Sodium ABG Potassium ABG Chloride 116.0 H ABG Glucose 161 H Oxyhemoglobin Carboxyhemoglobin Sodium Potassium Chloride Carbon Dioxide BUN Creatinine Glucose POC Glucose 139 H 151 H Lactic Acid Calcium Phosphorus Magnesium Total Creatine Kinase Troponin T Total Protein Albumin Triglycerides LDL Cholesterol Direct HDL Cholesterol Arterial Blood Glucose 161 H Arterial Blood Ionized Calcium Urine pH Urine WBC (Auto) Vancomycin Trough Salicylates Acetaminophen Crossmatch 11/17/20 11/17/20 11/17/20 09:50 09:50 11:10 WBC RBC 2.02 L Hgb 6.6 L Hct 20.2 L MCV 100 H MCH 33 H MCHC RDW 22.4 H Plt Count Lymph % (Auto) Seg Neutrophils % Seg Neuts % (Manual) Lymphocytes % (Manual) Nucleated RBC % Seg Neutrophils # Seg Neutrophils # Man Lymphocytes # (Manual) Monocytes # (Manual) PT INR ABG pH POC ABG pCO2 POC ABG pO2 ABG pO2 ABG HCO3 ABG O2 Saturation ABG Base Excess ABG Hemoglobin ABG Oxyhemoglobin ABG Sodium ABG Potassium ABG Chloride ABG Glucose Oxyhemoglobin Carboxyhemoglobin Sodium Potassium Chloride 111.8 H Carbon Dioxide BUN 23 H Creatinine 0.4 L Glucose 142 H POC Glucose Lactic Acid Calcium 7.3 L Phosphorus Magnesium Total Creatine Kinase Troponin T Total Protein Albumin Triglycerides LDL Cholesterol Direct HDL Cholesterol Arterial Blood Glucose Arterial Blood Ionized Calcium Urine pH Urine WBC (Auto) Vancomycin Trough Salicylates Acetaminophen Crossmatch See Detail 11/17/20 11/17/20 11/17/20 11:52 11:57 23:22 WBC RBC Hgb Hct MCV MCH MCHC RDW Plt Count Lymph % (Auto) Seg Neutrophils % Seg Neuts % (Manual) Lymphocytes % (Manual) Nucleated RBC % Seg Neutrophils # Seg Neutrophils # Man Lymphocytes # (Manual) Monocytes # (Manual) PT INR ABG pH POC ABG pCO2 POC ABG pO2 ABG pO2 ABG HCO3 ABG O2 Saturation ABG Base Excess ABG Hemoglobin ABG Oxyhemoglobin ABG Sodium ABG Potassium ABG Chloride ABG Glucose Oxyhemoglobin Carboxyhemoglobin Sodium Potassium Chloride Carbon Dioxide BUN Creatinine Glucose POC Glucose 42 L 114 H 63 L Lactic Acid Calcium Phosphorus Magnesium Total Creatine Kinase Troponin T Total Protein Albumin Triglycerides LDL Cholesterol Direct HDL Cholesterol Arterial Blood Glucose Arterial Blood Ionized Calcium Urine pH Urine WBC (Auto) Vancomycin Trough Salicylates Acetaminophen Crossmatch 11/17/20 11/18/20 11/18/20 23:27 04:06 04:45 WBC RBC 2.36 L Hgb 7.4 L Hct 23.4 L MCV 99 H MCH MCHC RDW 21.6 H Plt Count Lymph % (Auto) Seg Neutrophils % Seg Neuts % (Manual) Lymphocytes % (Manual) Nucleated RBC % Seg Neutrophils # Seg Neutrophils # Man Lymphocytes # (Manual) Monocytes # (Manual) PT INR ABG pH POC ABG pCO2 POC ABG pO2 67.7 L ABG pO2 ABG HCO3 ABG O2 Saturation ABG Base Excess ABG Hemoglobin 8.3 L ABG Oxyhemoglobin ABG Sodium ABG Potassium ABG Chloride 112.0 H ABG Glucose 143 H Oxyhemoglobin Carboxyhemoglobin Sodium Potassium Chloride Carbon Dioxide BUN Creatinine Glucose POC Glucose 124 H Lactic Acid Calcium Phosphorus Magnesium Total Creatine Kinase Troponin T Total Protein Albumin Triglycerides LDL Cholesterol Direct HDL Cholesterol Arterial Blood Glucose 143 H Arterial Blood Ionized Calcium 4.5 L Urine pH Urine WBC (Auto) Vancomycin Trough Salicylates Acetaminophen Crossmatch 11/18/20 11/18/20 11/18/20 04:45 05:56 23:46 WBC RBC Hgb Hct MCV MCH MCHC RDW Plt Count Lymph % (Auto) Seg Neutrophils % Seg Neuts % (Manual) Lymphocytes % (Manual) Nucleated RBC % Seg Neutrophils # Seg Neutrophils # Man Lymphocytes # (Manual) Monocytes # (Manual) PT INR ABG pH POC ABG pCO2 POC ABG pO2 ABG pO2 ABG HCO3 ABG O2 Saturation ABG Base Excess ABG Hemoglobin ABG Oxyhemoglobin ABG Sodium ABG Potassium ABG Chloride ABG Glucose Oxyhemoglobin Carboxyhemoglobin Sodium Potassium Chloride 107.9 H Carbon Dioxide BUN 23 H Creatinine 0.4 L Glucose 139 H POC Glucose 133 H 66 L Lactic Acid Calcium 7.6 L Phosphorus Magnesium Total Creatine Kinase Troponin T Total Protein Albumin Triglycerides LDL Cholesterol Direct HDL Cholesterol Arterial Blood Glucose Arterial Blood Ionized Calcium Urine pH Urine WBC (Auto) Vancomycin Trough Salicylates Acetaminophen Crossmatch 11/18/20 11/19/20 11/19/20 23:52 05:48 06:36 WBC RBC Hgb Hct MCV MCH MCHC RDW Plt Count Lymph % (Auto) Seg Neutrophils % Seg Neuts % (Manual) Lymphocytes % (Manual) Nucleated RBC % Seg Neutrophils # Seg Neutrophils # Man Lymphocytes # (Manual) Monocytes # (Manual) PT INR ABG pH POC ABG pCO2 POC ABG pO2 ABG pO2 ABG HCO3 ABG O2 Saturation ABG Base Excess ABG Hemoglobin ABG Oxyhemoglobin ABG Sodium ABG Potassium ABG Chloride ABG Glucose Oxyhemoglobin Carboxyhemoglobin Sodium Potassium Chloride Carbon Dioxide BUN 21 H Creatinine 0.4 L Glucose 119 H POC Glucose 118 H 108 H Lactic Acid Calcium 7.8 L Phosphorus Magnesium Total Creatine Kinase Troponin T Total Protein Albumin Triglycerides LDL Cholesterol Direct HDL Cholesterol Arterial Blood Glucose Arterial Blood Ionized Calcium Urine pH Urine WBC (Auto) Vancomycin Trough Salicylates Acetaminophen Crossmatch 11/19/20 11/19/20 11/19/20 06:36 06:36 18:15 WBC RBC 2.79 L Hgb 9.0 L Hct 27.8 L MCV 100 H MCH MCHC RDW 20.7 H Plt Count Lymph % (Auto) Seg Neutrophils % Seg Neuts % (Manual) Lymphocytes % (Manual) Nucleated RBC % Seg Neutrophils # Seg Neutrophils # Man Lymphocytes # (Manual) Monocytes # (Manual) PT INR 1.15 H ABG pH POC ABG pCO2 POC ABG pO2 ABG pO2 ABG HCO3 ABG O2 Saturation ABG Base Excess ABG Hemoglobin ABG Oxyhemoglobin ABG Sodium ABG Potassium ABG Chloride ABG Glucose Oxyhemoglobin Carboxyhemoglobin Sodium Potassium Chloride Carbon Dioxide BUN Creatinine Glucose POC Glucose 115 H Lactic Acid Calcium Phosphorus Magnesium Total Creatine Kinase Troponin T Total Protein Albumin Triglycerides LDL Cholesterol Direct HDL Cholesterol Arterial Blood Glucose Arterial Blood Ionized Calcium Urine pH Urine WBC (Auto) Vancomycin Trough Salicylates Acetaminophen Crossmatch 11/19/20 11/19/20 11/20/20 23:27 Unknown 04:56 WBC RBC Hgb Hct MCV MCH MCHC RDW Plt Count Lymph % (Auto) Seg Neutrophils % Seg Neuts % (Manual) Lymphocytes % (Manual) Nucleated RBC % Seg Neutrophils # Seg Neutrophils # Man Lymphocytes # (Manual) Monocytes # (Manual) PT INR ABG pH 7.457 H POC ABG pCO2 POC ABG pO2 57.4 L ABG pO2 72.4 L ABG HCO3 26.9 H ABG O2 Saturation ABG Base Excess ABG Hemoglobin 8.5 L 9.6 L ABG Oxyhemoglobin 90.1 L ABG Sodium ABG Potassium ABG Chloride 109.0 H ABG Glucose 142 H Oxyhemoglobin 94.1 L Carboxyhemoglobin Sodium Potassium Chloride Carbon Dioxide BUN Creatinine Glucose POC Glucose 129 H Lactic Acid Calcium Phosphorus Magnesium Total Creatine Kinase Troponin T Total Protein Albumin Triglycerides LDL Cholesterol Direct HDL Cholesterol Arterial Blood Glucose 142 H Arterial Blood Ionized Calcium Urine pH Urine WBC (Auto) Vancomycin Trough Salicylates Acetaminophen Crossmatch 04/22/21 04/22/21 04/22/21 05:07 05:45 05:45 WBC 11.7 H RBC 2.74 L Hgb 8.9 L Hct 26.3 L MCV 96 H MCH 33 H MCHC RDW 18.6 H Plt Count Lymph % (Auto) Seg Neutrophils % Seg Neuts % (Manual) Lymphocytes % (Manual) Nucleated RBC % Seg Neutrophils # Seg Neutrophils # Man Lymphocytes # (Manual) Monocytes # (Manual) PT INR ABG pH POC ABG pCO2 POC ABG pO2 ABG pO2 ABG HCO3 ABG O2 Saturation ABG Base Excess ABG Hemoglobin ABG Oxyhemoglobin ABG Sodium ABG Potassium ABG Chloride ABG Glucose Oxyhemoglobin Carboxyhemoglobin Sodium Potassium Chloride Carbon Dioxide 31 H BUN Creatinine 0.4 L Glucose 127 H POC Glucose 129 H Lactic Acid Calcium 8.0 L Phosphorus Magnesium Total Creatine Kinase Troponin T Total Protein Albumin Triglycerides LDL Cholesterol Direct HDL Cholesterol Arterial Blood Glucose Arterial Blood Ionized Calcium Urine pH Urine WBC (Auto) Vancomycin Trough Salicylates Acetaminophen Crossmatch 11/20/20 11/20/20 11/21/20 12:02 17:52 00:02 WBC RBC Hgb Hct MCV MCH MCHC RDW Plt Count Lymph % (Auto) Seg Neutrophils % Seg Neuts % (Manual) Lymphocytes % (Manual) Nucleated RBC % Seg Neutrophils # Seg Neutrophils # Man Lymphocytes # (Manual) Monocytes # (Manual) PT INR ABG pH POC ABG pCO2 POC ABG pO2 ABG pO2 ABG HCO3 ABG O2 Saturation ABG Base Excess ABG Hemoglobin ABG Oxyhemoglobin ABG Sodium ABG Potassium ABG Chloride ABG Glucose Oxyhemoglobin Carboxyhemoglobin Sodium Potassium Chloride Carbon Dioxide BUN Creatinine Glucose POC Glucose 134 H 115 H 116 H Lactic Acid Calcium Phosphorus Magnesium Total Creatine Kinase Troponin T Total Protein Albumin Triglycerides LDL Cholesterol Direct HDL Cholesterol Arterial Blood Glucose Arterial Blood Ionized Calcium Urine pH Urine WBC (Auto) Vancomycin Trough Salicylates Acetaminophen Crossmatch 11/21/20 11/21/20 11/21/20 03:23 04:00 05:14 WBC RBC Hgb Hct MCV MCH MCHC RDW Plt Count Lymph % (Auto) Seg Neutrophils % Seg Neuts % (Manual) Lymphocytes % (Manual) Nucleated RBC % Seg Neutrophils # Seg Neutrophils # Man Lymphocytes # (Manual) Monocytes # (Manual) PT INR ABG pH 7.479 H POC ABG pCO2 POC ABG pO2 73.7 L ABG pO2 ABG HCO3 ABG O2 Saturation ABG Base Excess ABG Hemoglobin 9.4 L ABG Oxyhemoglobin ABG Sodium ABG Potassium ABG Chloride 108.0 H ABG Glucose 135 H Oxyhemoglobin Carboxyhemoglobin Sodium Potassium Chloride Carbon Dioxide 34 H BUN Creatinine 0.4 L Glucose 125 H POC Glucose 116 H Lactic Acid Calcium 7.9 L Phosphorus Magnesium Total Creatine Kinase Troponin T Total Protein Albumin Triglycerides LDL Cholesterol Direct HDL Cholesterol Arterial Blood Glucose 135 H Arterial Blood Ionized Calcium 4.5 L Urine pH Urine WBC (Auto) Vancomycin Trough Salicylates Acetaminophen Crossmatch 11/22/20 11/22/20 11/22/20 04:00 04:00 05:34 WBC 12.2 H RBC 2.74 L Hgb 8.7 L Hct 27.4 L MCV 100 H MCH MCHC RDW 19.2 H Plt Count Lymph % (Auto) Seg Neutrophils % Seg Neuts % (Manual) Lymphocytes % (Manual) Nucleated RBC % Seg Neutrophils # Seg Neutrophils # Man Lymphocytes # (Manual) Monocytes # (Manual) PT INR ABG pH POC ABG pCO2 POC ABG pO2 ABG pO2 ABG HCO3 ABG O2 Saturation ABG Base Excess ABG Hemoglobin ABG Oxyhemoglobin ABG Sodium ABG Potassium ABG Chloride ABG Glucose Oxyhemoglobin Carboxyhemoglobin Sodium Potassium Chloride Carbon Dioxide BUN Creatinine 0.4 L Glucose POC Glucose 58 L Lactic Acid Calcium 7.7 L Phosphorus Magnesium Total Creatine Kinase Troponin T Total Protein Albumin Triglycerides LDL Cholesterol Direct HDL Cholesterol Arterial Blood Glucose Arterial Blood Ionized Calcium Urine pH Urine WBC (Auto) Vancomycin Trough Salicylates Acetaminophen Crossmatch 11/22/20 11/23/20 11/23/20 11:48 00:15 04:16 WBC RBC Hgb Hct MCV MCH MCHC RDW Plt Count Lymph % (Auto) Seg Neutrophils % Seg Neuts % (Manual) Lymphocytes % (Manual) Nucleated RBC % Seg Neutrophils # Seg Neutrophils # Man Lymphocytes # (Manual) Monocytes # (Manual) PT INR ABG pH POC ABG pCO2 POC ABG pO2 75.2 L ABG pO2 ABG HCO3 ABG O2 Saturation ABG Base Excess ABG Hemoglobin 11.9 L ABG Oxyhemoglobin ABG Sodium ABG Potassium ABG Chloride ABG Glucose 152 H Oxyhemoglobin Carboxyhemoglobin Sodium Potassium Chloride Carbon Dioxide BUN Creatinine Glucose POC Glucose 60 L 106 H Lactic Acid Calcium Phosphorus Magnesium Total Creatine Kinase Troponin T Total Protein Albumin Triglycerides LDL Cholesterol Direct HDL Cholesterol Arterial Blood Glucose 152 H Arterial Blood Ionized Calcium 4.5 L Urine pH Urine WBC (Auto) Vancomycin Trough Salicylates Acetaminophen Crossmatch 11/23/20 11/23/20 11/23/20 04:25 05:27 10:23 WBC 11.3 H RBC 2.58 L Hgb 8.4 L Hct 24.7 L MCV 96 H MCH MCHC RDW 18.2 H Plt Count Lymph % (Auto) Seg Neutrophils % Seg Neuts % (Manual) 94.0 H Lymphocytes % (Manual) 5.0 L Nucleated RBC % Seg Neutrophils # Seg Neutrophils # Man 10.6 H Lymphocytes # (Manual) 0.6 L Monocytes # (Manual) PT INR ABG pH 7.489 H POC ABG pCO2 POC ABG pO2 74.7 L ABG pO2 ABG HCO3 ABG O2 Saturation ABG Base Excess ABG Hemoglobin 9.6 L ABG Oxyhemoglobin ABG Sodium 135.6 L ABG Potassium ABG Chloride ABG Glucose 119 H Oxyhemoglobin Carboxyhemoglobin Sodium Potassium Chloride Carbon Dioxide BUN Creatinine Glucose POC Glucose 121 H Lactic Acid Calcium Phosphorus Magnesium Total Creatine Kinase Troponin T Total Protein Albumin Triglycerides LDL Cholesterol Direct HDL Cholesterol Arterial Blood Glucose 119 H Arterial Blood Ionized Calcium 4.4 L Urine pH Urine WBC (Auto) Vancomycin Trough Salicylates Acetaminophen Crossmatch 11/23/20 11/23/20 11/23/20 10:23 11:53 23:19 WBC RBC Hgb Hct MCV MCH MCHC RDW Plt Count Lymph % (Auto) Seg Neutrophils % Seg Neuts % (Manual) Lymphocytes % (Manual) Nucleated RBC % Seg Neutrophils # Seg Neutrophils # Man Lymphocytes # (Manual) Monocytes # (Manual) PT INR ABG pH POC ABG pCO2 POC ABG pO2 ABG pO2 ABG HCO3 ABG O2 Saturation ABG Base Excess ABG Hemoglobin ABG Oxyhemoglobin ABG Sodium ABG Potassium ABG Chloride ABG Glucose Oxyhemoglobin Carboxyhemoglobin Sodium Potassium Chloride Carbon Dioxide BUN Creatinine 0.4 L Glucose 101 H POC Glucose 112 H 120 H Lactic Acid Calcium 7.2 L Phosphorus Magnesium Total Creatine Kinase Troponin T Total Protein Albumin Triglycerides LDL Cholesterol Direct HDL Cholesterol Arterial Blood Glucose Arterial Blood Ionized Calcium Urine pH Urine WBC (Auto) Vancomycin Trough Salicylates Acetaminophen Crossmatch 11/24/20 05:31 WBC RBC Hgb Hct MCV MCH MCHC RDW Plt Count Lymph % (Auto) Seg Neutrophils % Seg Neuts % (Manual) Lymphocytes % (Manual) Nucleated RBC % Seg Neutrophils # Seg Neutrophils # Man Lymphocytes # (Manual) Monocytes # (Manual) PT INR ABG pH POC ABG pCO2 POC ABG pO2 ABG pO2 ABG HCO3 ABG O2 Saturation ABG Base Excess ABG Hemoglobin ABG Oxyhemoglobin ABG Sodium ABG Potassium ABG Chloride ABG Glucose Oxyhemoglobin Carboxyhemoglobin Sodium Potassium Chloride Carbon Dioxide BUN Creatinine Glucose POC Glucose 132 H Lactic Acid Calcium Phosphorus Magnesium Total Creatine Kinase Troponin T Total Protein Albumin Triglycerides LDL Cholesterol Direct HDL Cholesterol Arterial Blood Glucose Arterial Blood Ionized Calcium Urine pH Urine WBC (Auto) Vancomycin Trough Salicylates Acetaminophen Crossmatch Allied health notes reviewed: nursing
[2020-11-24] MEDS: ALBUTEROL 2.5 MG/3 ML NEBU IH SCH ×3 (13:38→20:20)
--- NOTE | 2020-11-24 18:16 | Progress Note ---
Assessment and Plan Assessment and plan: 75-year-old male who is a snf resident with seizure disorder, hypertension, depression, hyperlipidemia, hypoglycemia, dysphagia, and encephalopathy who is admitted for sepsis, acute kidney injury, urinary tract infection, acute respiratory failure, electrolyte imbalances, infected sacral wound and bilateral pneumonia Sepsis Acute respiratory failure with Hypoxia Cardiovascular shock Infected sacral wound s/p debridement with surgery Generalized anasarca possible acute diastolic congestive heart failure Anemia Afib Bilateral pleural effusion Right and left lung atelectasis secondary to mucous plug Proteus bacteremia MRSA pneumonia Urine tract infection Leukocytosis Acute kidney injury with vasomotor Nephropathy Acute Diarrhea ?C.diff- Test was not peformed SFA occlusion - Not a candidate for surgery per Vascular -ID, cardiology, CCM, surgery, vascular surgery, nephrology, surgery, WOCN consulted, appreciate recommendations -FAZAL, pneumonia, infected sacral wound, acute respiratory failure, leukocytosis, hypotension requiring vasopressor support -Antibiotic therapy -Trend CBC and BMP -10/26 tracheal aspirate with MRSA, 10/26 blood cultures x2 with Proteus mirabilis, 10/27 urine culture possible contaminant, 11/15: Trach aspirate positive for staph coccus aureus, 11/06 occult stool positive -On mechanical ventilation, wean as tolerated, VAP bundle, CPAP trials as tolerated -Wound care per nursing -Sedated with fentanyl -Midodrine, norepinephrine as needed -Vancomycin -Amiodarone for rate control -S/p IVF resuscitation -HIT panel negative -Surgery consulted for trach/PEG placement (planned 11/21/2020); transfuse 1 unit PRBC on 11/18 per surgery request for goal hemoglobin greater than 8. -s/p 4 units PRBC during stay GI/DVT prophylaxis: Lovenox subq, SCDs to bilateral legs while in bed, PPI Dispo: ICU, [facility] The high probability of a clinically significant, sudden or life threatening deterioration of the [pulmonary, cardiac] system(s) required my full and direct attention, intervention and personal management. The aggregate critical care ti me was [35] minutes. This time is in addition to time spent performing reported procedures but includes the following: [X] Data Review and interpretation [X] Patient assessment and monitoring of vital signs [X] Documentation [X] Medication orders and management History Interval history: This is a 75-year-old male who is a snf resident with seizure disorder, hypertension, depression, hyperlipidemia, hypoglycemia, dysphagia, and encephalopathy who presents to the emergency department on 10/26 via EMS for tachypnea, dry mucous membranes and hypoxia. Patient was hypotensive, febrile to 103 degrees and hypoxic in the emergency department therefore he was intubated and central IV access was obtained. Patient received 3.5 L of IV fluid in the emergency department. Patient was admitted to the hospital service with consults to CCM, surgery, WOCN and ID for Sepsis, acute kidney injury, urinary tract infection, acute respiratory failure, electrolyte imbalances, infected sacral wound and bilateral pneumonia. 10/27: Patient received additional 4 L LR for fluid resuscitation and CV monitoring was initiated. Patient is on Levophed. ID added Flagyl to vancomycin and cefepime. His trach aspirate grew staph coccus aureus. At the time my examination patient the fentanyl drip was held by RN and he was on 14 MCG of Levophed. This morning he was on assist control 450/20/6/.100. We will give additional bolus of fluids with goal CVP 10-12 and repeat labs in AM. Surgery was consulted to possible debridement. 10/28: Overnight it was noted that patient went into SVT and he was given adenosine 6 mg/12 mg / 12 mg once and was started on a Cardizem drip after no response to amnio bolus and cardiology was consulted. Currently patient remains on Levophed drip and is hypotensive and received additional 2 L of bolus for goal CVP of 10-12. Infectious disease changed cefepime/Flagyl to meropenem for GNR in his blood cultures 09/04 and will continue vancomycin. Patient currently was not well controlled on max Cardizem and cardiology initiated amiodarone. Patient still is very tachycardic. Patient is hypomagnesemic and we will reple te his Mg and recheck level. We will give the patient additional to complete resolve LR this afternoon. Patient has a standing order per [facility] to bolus the patient with LR for CVP goal of 10-12. This morning he is hyperchlormeic, metabolic acidotic (bicarb drip initiated) and his BUN/creatinine slightly elevated. Patient still remains lactic acidotic. 10/29: Patient's blood culture speciated to Proteus and his tracheal aspirate is MRSA. He is currently on ceftriaxone, Flagyl and vancomycin. Patient heart rate consistently is 110-150s and cardiology has given him an amiodarone bolus today and he remains on amiodarone drip. He looks much started on IV digoxin. This morning 4 L LR bolus was ordered and we will bolus an additional 4 L of LR this afternoon. Patient still has lactic acidosis, metabolic acidosis, leukocytosis and hyperchloremia. On examination this morning patient is more edematous and he remains on Levophed and amnio drip. 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 Remains on amio, levo and sedated with fentanyl. He is hypokalemic today which was repleted, h/h 02/18 and he is being type and crossed today with 2 units PRBC ordered to be transfused. Plt drop noted, heparin discontinued and HIT ordered. Bicarb gtt discontinued. No acute e vents overnight. 10/31: Patient hypomagnesemia today which was repleted and cardiology has changed his IV amiodarone to p.o. Patient will get albumin per [facility]. At the time my examination patient is on assist control 450/20/6/0.40. 11/03: At the time my examination patient is on assist control 450/20/6/0.25 and sedated with fentanyl and on Levophed at 4.Patient's leukocytosis is improving he received Albumin this weekend. Patient is hypokalemic, hypomagnesemic, hypocalcemic today. We will repeat his electrolytes and recheck a BMP in the a.m. Patient received 2 units PRBC on 10/30 and his hemoglobin has been trending down. We will recheck in the a.m. 11/04: At the time of my examination patient was on Levophed 3 mcg and on VZV/CPAP 450/20/6/0.35. Patient still has leukocytosis, respiratory alkalosis, hyponatremia, hypochloremia, hypocalcemia. Today his magnesium and potassium repleted with bolus of potassium 4/magnesium 2. He received 60 mcg KCl p.o., 40 mEq of KCl IV and 2 g of magnesium sulfate. We will recheck BMP and mag and a.m. Surgery has deemed the patient to unstable for further debulking. We also consulted vascular surgery for PVD as patient has discoloration to BLE /feet. 11/05: Vascular surgery will obtain bilateral lower extremity arterial duplex to evaluate arterial flow and recommends adding as FWF to tube feedings in assisting to wean off of vasopressors. Patient has hypokalemia, hypophosphatemia and normal to low magnesium. Magnesium, potassium and phosp hate have been repleted. Patient still remains on ventilator support but on CPAP trial this morning. Patient HIT is still pending. This morning at the time of my examination patient was on assist-control 450/20/6/0.35 and he tolerated CPAP trial for 4 hours yesterday. He was on Levophed 0.5 and his rectal tube output was noted at 1000 mL. 11/06: This morning patient was on a CPAP trial and became hypoxic with SPO2 into the 80s and was switched back to assist control. Patient's vent settings are assist control tidal and 450, rate 20, PEEP 6, FiO2 0.25. Today patient has leukocytosis, hypernatremia, hyperchloremia, hypocalcemia and hypophosphatemia. We will repeat a phosphate. His free water flushes have been increased and his magnesium has been repleted again. Patient has been started on Lovenox given improvement in his platelet count and on midodrine to help keep Levophed off. Infectious disease will continue p.o. vancomycin for total of 10 days. 11/07: Patient failed his CPAP trial yesterday and has been placed on CPAP 10/ again this morning by RT. Overnight patient was rested on assist control tolerance by 50, rate of 20, pressure support 6 and FiO2 30%. His lab work is still pending for this morning. On repeat his phosphorus was 4.50 yesterday and repletion was discontinued. 11/08/2020; patient is off pressors currently on midodrine. Patient is on ceftriaxone and vancomycin. Patient is on assist control. Patient was evaluated by vascular surgery for peripheral vascular disease with SFA occlusion and recommend no intervention at this time. Prognosis is guarded. Patient is on 2 L of intranasal oxygen. We will put speech therapy evaluation. 11/09/2020; patient is currently off pressors and on midodrine. Continue with ceftriaxone, Flagyl and vancomycin per ID recommendation. Patient's blood culture grew Proteus mirabilis and tracheal aspirate grew MRSA. Patient was evaluated by vascular surgery for PVD with SFA occlusion and recommend no intervention at this time. Patient is on 2 L of intranasal oxygen. Currently patient is on tube feeding and follow speech therapy evaluation. 11/10: Overnight noted to have increased RR, ? Awaiting speech eval considering patient still on Tube feeds. Continue to monitor Hypernatremia. Antibiotics today will be D12/14. Will continue discharge planning on discussion with CM. Patient nonrebreather. Possibly back on congestive heart failure will need appropriate diuresis. Transferred back to [facility]. Discussed with correction officer supervisor and also with cardiology. 11/11: Remains lethargic remains in respiratory distress chest x-ray shows right lung collapse likely secondary to mucous plug. Discussed with correction officer supervisor will likely undergo a bronchoscopy today. We will also continue to monitor as we did suggest possible pleural effusion which we think may be less likely but if that seems to be the case we will send patient for thoracentesis following the bronchoscopy. Continue to monitor hemoglobin continue to monitor diarrhea antibiotics management per infectious disease. I did speak and update patient's cousin yesterday. Patient still with edema will await cardiology reevaluation for possible further diuresis. 11/12: Patient for Bronchoscopy today. Continue supportive care 11/13: Patient Clinically improving, tolerated Bronchoscopy yesterday. Awaiting am labs today. Overnight had bradycardia. Continue weaning oxygen. Discussed with creative recruiter patient did have bronchial plug plus pleural effusion but will address. Will monitor serial x-rays. Discussed with nursing staff about my discussion with the brother. Continue supportive care. PER Brother,([phone] patient has had recurrent knee aspiration. Cardiology to re-evaluate today for Bradycardia noted overnight 11/14: Patient had a repeat bronchoscopy yesterday of the right lung due to mucous plug. Prevention Rn did have a conversation with the cousin as one of the considerations may be a trach due to recurrent pulmonary mucous plug and also significant debility for patient's overall medical condition. And his inability to maintain his airway. We will start him on a low round of D5 until diet is established. We will continue to monitor clinical status this morning. Plan discussed with nursing staff patient and also with cardroom supervisor 11/15: Continues to show some improvement, will check CXR today. Wean oxygen as tolerated, will likely need Trach per pulmonary. WBC improving, will monitor Sodium level. Patient on dopamin. 11/16: Patient overnight required intubation due to worsening respiratory failure secondary to complete opacification of the right lung again. This has appeared to cleared up this morning following the intuabation. Cousin advised of the finding, he will try to get us all his records because he believes that the patient has had a trach done before but is not sure. Started on Pressors due to hypotension 11/17: Today general surgery was consulted for trach/PEG placement, patient grew staph and tracheal aspirate and his cefepime was stopped and [facility] ordered a trial dose of Lasix. At the time my examination patient was on 1 mcg of fentanyl and dopamine 5 mcg/kg per cardiology. He has hyperchloremia and his lab work and is anemic today at 6.6/20.2. Patient received 1 unit PRBC. We will obtain a CBC in the a.m. 11/18: No acute events reported overnight, patient was given Lasix again by [facility], surgery has requested transfusion of one 1 unit PRBC despite H/H being 7.4/23.4 and plans to do a tracheostomy and plans to perform PEG and trach placement on 11/21/2020. We will follow up BMP and CBC in the a.m. Coags ordered. 11/19: Patient's next of kin still Mr. Buckley's next of kin/POA is still undecided about trach/PEG, surgeon aware. [facility] has given the patient another dose of Lasix and he was noted to be in atrial fibrillation with RVR this morning. C ardiology is aware and they have opted to resume amiodarone drip for rate control. We will obtain a BMP in the a.m. 11/20: At the time of examination patient remains on amiodarone 0.05 mcg and fentanyl 1 mcg on assist control tidal volume 500, rate 20, PEEP 6, FiO2 of 40%. Patient will have Lasix dose again. Dr. Quintanilla updated the family today. 11/21: Patient remains atrial fibrillation but is better rate controlled. Patient was taking to the OR for trach/PEG General surgery. No acute events reported overnight. Patient was given diuresed again and we will recheck a BMP in the a.m. 11/22. Patient tolerated tracheostomy. Alert no new concerns. Patient able to not that he is not in pain. 11/23 patient appears to be tolerating PEG tube feedings able to use tube feedings no new concerns over p.m. alert improving respiratory failure 11/24: No acute events overgnight. At the time my examination patient was on assist control tidal volume 500, rate 12, PEEP 6, FiO2 50%. Patient fentanyl drip discontinued and placed on IV push fentanyl 50 mcg every 2 hours. RN to remove right IJ. Hospitalist Physical - Constitutional Vitals: Temp Pulse Resp BP Pulse Ox 97.9 F 95 H 19 104/60 98 11/24/20 16:00 11/24/20 18:00 11/24/20 18:00 11/24/20 18:00 11/24/20 18:00 General appearance: Present: no acute distress, other (Patient resting comfortably on vent) - EENT Eyes: Present: PERRL ENT: hearing decreased, poor dentition - Neck Neck: Present: normal ROM - Respiratory Respiratory effort: normal Respiratory: bilateral: diminished - Cardiovascular Rhythm: regular Heart Sounds: Present: S1 & S2. Absent: systolic murmur, diastolic murmur - Extremities Extremities: no ischemia, pulses intact, pulses symmetrical, normal temperature, normal color Extremity abnormal: edema Peripheral Pulses: within normal limits - Abdominal General gastrointestinal: soft, non-tender, non-distended, normal bowel sounds - Integumentary Integumentary: Present: warm, dry - Psychiatric Psychiatric: cooperative - Neurologic Neurologic: CNII-XII intact, no focal deficits, moves all extremities - Allied Health Allied health notes reviewed: nursing, RT, social work HEART Score - HEART Score EKG: Non-specific Age: > 65 Risk factors: > 3 risk factors or hx of atherosclerotic disease Troponin: Troponin T 0.123 ng/mL (0.00-0.029) H* 11/13/20 23:15 Troponin: < normal limit - Critical Actions Critical Actions: 4-6 pts:12-16.6% risk of adverse cardiac event. Should be admitted Results - Labs CBC & Chem 7: 11/23/20 10:23 11/23/20 10:23 Labs: Laboratory Last Values WBC 11.3 K/mm3 (4.5-11.0) H 11/23/20 10:23 RBC 2.58 M/mm3 (3.65-5.03) L 11/23/20 10:23 Hgb 8.4 gm/dl (11.8-15.2) L 11/23/20 10:23 Hct 24.7 % (35.5-45.6) L 11/23/20 10:23 MCV 96 fl (84-94) H 11/23/20 10:23 MCH 32 pg (28-32) 11/23/20 10:23 MCHC 34 % (32-34) 11/23/20 10:23 RDW 18.2 % (13.2-15.2) H 11/23/20 10:23 Plt Count 343 K/mm3 (140-440) 11/23/20 10:23 Lymph % (Auto) 9.1 % (13.4-35.0) L 11/09/20 06:00 [place] % (Auto) 5.4 % (0.0-7.3) 11/09/20 06:00 Eos % (Auto) 0.3 % (0.0-4.3) 11/09/20 06:00 Baso % (Auto) 0.4 % (0.0-1.8) 11/09/20 06:00 Lymph # (Auto) 1.2 K/mm3 (1.2-5.4) 11/09/20 06:00 [place] # (Auto) 0.7 K/mm3 (0.0-0.8) 11/09/20 06:00 Eos # (Auto) 0.0 K/mm3 (0.0-0.4) 11/09/20 06:00 Baso # (Auto) 0.0 K/mm3 (0.0-0.1) 11/09/20 06:00 Add Manual Diff Complete 11/23/20 10:23 Total Counted 100 11/23/20 10:23 Seg Neutrophils % 84.8 % (40.0-70.0) H 11/09/20 06:00 Seg Neuts % (Manual) 94.0 % (40.0-70.0) H 11/23/20 10:23 Band Neutrophils % 17.0 % 10/27/20 03:30 Lymphocytes % (Manual) 5.0 % (13.4-35.0) L 11/23/20 10:23 Monocytes % (Manual) 1.0 % (0.0-7.3) 11/23/20 10:23 Eosinophils % (Manual) 2.0 % (0.0-4.3) 10/27/20 03:30 Metamyelocytes % 4.0 % 10/27/20 03:30 Nucleated RBC % Not Reportable 11/23/20 10:23 Seg Neutrophils # 11.1 K/mm3 (1.8-7.7) H 11/09/20 06:00 Seg Neutrophils # Man 10.6 K/mm3 (1.8-7.7) H 11/23/20 10:23 Band Neutrophils # 0.0 K/mm3 11/23/20 10:23 Lymphocytes # (Manual) 0.6 K/mm3 (1.2-5.4) L 11/23/20 10:23 Abs React Lymphs (Man) 0.0 K/mm3 11/23/20 10:23 Monocytes # (Manual) 0.1 K/mm3 (0.0-0.8) 11/23/20 10:23 Eosinophils # (Manual) 0.0 K/mm3 (0.0-0.4) 11/23/20 10:23 Basophils # (Manual) 0.0 K/mm3 (0.0-0.1) 11/23/20 10:23 Metamyelocytes # 0.0 K/mm3 11/23/20 10:23 Myelocytes # 0.0 K/mm3 11/23/20 10:23 Promyelocytes # 0.0 K/mm3 11/23/20 10:23 Blast Cells # 0.0 K/mm3 11/23/20 10:23 WBC Morphology Not Reportable 11/23/20 10:23 Hypersegmented Neuts Not Reportable 11/23/20 10:23 Hyposegmented Neuts Not Reportable 11/23/20 10:23 Hypogranular Neuts Not Reportable 11/23/20 10:23 Smudge Cells Not Reportable 11/23/20 10:23 Toxic Granulation Not Reportable 11/23/20 10:23 Toxic Vacuolation Not Reportable 11/23/20 10:23 Dohle Bodies Not Reportable 11/23/20 10:23 Pelger-Huet Anomaly Not Reportable 11/23/20 10:23 Kassi Rods Not Reportable 11/23/20 10:23 Platelet Estimate Consistent w auto 11/23/20 10:23 Clumped Platelets Not Reportable 11/23/20 10:23 Plt Clumps, EDTA Not Reportable 11/23/20 10:23 Large Platelets Not Reportable 11/23/20 10:23 Giant Platelets Not Reportable 11/23/20 10:23 Platelet Satelliting Not Reportable 11/23/20 10:23 Plt Morphology Comment Not Reportable 11/23/20 10:23 RBC Morphology Normal 11/23/20 10:23 Dimorphic RBCs Not Reportable 11/23/20 10:23 Polychromasia Not Reportable 11/23/20 10:23 Hypochromasia Not Reportable 11/23/20 10:23 Poikilocytosis Not Reportable 11/23/20 10:23 Anisocytosis Not Reportable 11/23/20 10:23 Microcytosis Not Reportable 11/23/20 10:23 Macrocytosis Not Reportable 11/23/20 10:23 Spherocytes Not Reportable 11/23/20 10:23 Pappenheimer Bodies Not Reportable 11/23/20 10:23 Sickle Cells Not Reportable 11/23/20 10:23 Target Cells Not Reportable 11/23/20 10:23 Tear Drop Cells Not Reportable 11/23/20 10:23 Ovalocytes Not Reportable 11/23/20 10:23 Helmet Cells Not Reportable 11/23/20 10:23 [place] Bodies Not Reportable 11/23/20 10:23 [place] Rings Not Reportable 11/23/20 10:23 [place] Cells Not Reportable 11/23/20 10:23 Bite Cells Not Reportable 11/23/20 10:23 Crenated Cell Not Reportable 11/23/20 10:23 Elliptocytes Not Reportable 11/23/20 10:23 Acanthocytes (Spur) Not Reportable 11/23/20 10:23 Rouleaux Not Reportable 11/23/20 10:23 Hemoglobin C Crystals Not Reportable 11/23/20 10:23 Schistocytes Not Reportable 11/23/20 10:23 Malaria parasites Not Reportable 11/23/20 10:23 Richard Bodies Not Reportable 11/23/20 10:23 Hem Pathologist Commnt No 11/23/20 10:23 PT 14.7 Sec. (12.2-14.9) 11/19/20 06:36 INR 1.15 (0.87-1.13) H 11/19/20 06:36 APTT 27.9 Sec. (24.2-36.6) 10/26/20 17:25 Heparin Anti-Xa, Unfract Negative (Negative) 11/03/20 11:01 ABG pH 7.489 (7.320-7.450) H 11/23/20 04:25 POC ABG pCO2 38.2 mmHg (32.0-48.0) 11/23/20 04:25 ABG pCO2 43.4 mm Hg 11/19/20 Unknown POC ABG pO2 74.7 mmHg (83-108) L 11/23/20 04:25 ABG pO2 72.4 mm Hg (80.0-90.0) L 11/19/20 Unknown POC ABG HCO3 28.4 11/23/20 04:25 ABG HCO3 26.9 mmol/L (20.0-26.0) H 11/19/20 Unknown ABG O2 Saturation 95.5 (0-100) 11/23/20 04:25 ABG O2 Content 11.3 (0.0-44) 11/19/20 Unknown POC ABG Base Excess 4.8 11/23/20 04:25 ABG Base Excess 2.0 mmol/L (-2.0-3.0) 11/19/20 Unknown ABG Hemoglobin 9.6 (12.0-17.5) L 11/23/20 04:25 ABG Oxyhemoglobin 94.5 (94-98) 11/23/20 04:25 ABG Carboxyhemoglobin 2.0 % (0.0-5.0) 11/19/20 Unknown ABG Methemoglobin 0.3 (0.0-1.5) 11/23/20 04:25 ABG Sodium 135.6 mmol/L (136.0-145.0) L 11/23/20 04:25 ABG Potassium 3.8 mmol/L (3.40-4.50) 11/23/20 04:25 ABG Chloride 105.0 mmol/L (98-107) 11/23/20 04:25 ABG Glucose 119 mg/dL (65-95) H 11/23/20 04:25 Oxyhemoglobin 94.1 % (95.0-99.0) L 11/19/20 Unknown Carboxyhemoglobin 0.7 (0.5-1.5) 11/23/20 04:25 FiO2 30 % 11/19/20 Unknown FiO2 % 35.0 11/23/20 04:25 Sodium 140 mmol/L (137-145) 11/23/20 10:23 Potassium 3.7 mmol/L (3.6-5.0) 11/23/20 10:23 Chloride 104.5 mmol/L (98-107) 11/23/20 10:23 Carbon Dioxide 29 mmol/L (22-30) 11/23/20 10:23 Anion Gap 10 mmol/L 11/23/20 10:23 BUN 13 mg/dL (9-20) 11/23/20 10:23 Creatinine 0.4 mg/dL (0.8-1.3) L 11/23/20 10:23 Estimated GFR > 60 ml/min 11/23/20 10:23 BUN/Creatinine Ratio 33 % 11/23/20 10:23 Glucose 101 mg/dL (75-100) H 11/23/20 10:23 POC Glucose 137 mg/dL (70-105) H 11/24/20 11:27 Hemoglobin A1c 5.5 % (4-6) 10/27/20 04:42 Lactic Acid 4.30 mmol/L (0.7-2.0) H* 10/31/20 Unknown Calcium 7.2 mg/dL (8.4-10.2) L 11/23/20 10:23 Phosphorus 4.50 mg/dL (2.5-4.5) D 11/06/20 13:03 Magnesium 1.70 mg/dL (1.7-2.3) 11/21/20 09:47 Total Bilirubin < 0.20 mg/dL (0.1-1.2) 11/06/20 06:45 AST 23 units/L (5-40) 11/06/20 06:45 ALT 20 units/L (7-56) 11/06/20 06:45 Alkaline Phosphatase 117 units/L (35-129) 11/06/20 06:45 Total Creatine Kinase 31 units/L (55-170) L 10/26/20 17:28 Troponin T 0.123 ng/mL (0.00-0.029) H* 04/15/21 23:15 Total Protein 5.0 g/dL (6.3-8.2) L 11/06/20 06:45 Albumin 1.4 g/dL (3.9-5) L 11/06/20 06:45 Albumin/Globulin Ratio 0.4 % 11/06/20 06:45 Triglycerides 190 mg/dL (2-149) H 10/26/20 17:25 Cholesterol 92 mg/dL (50-199) 10/26/20 17:25 LDL Cholesterol Direct 33 mg/dL (50-130) L 10/26/20 17:25 HDL Cholesterol 18 mg/dL (40-59) L 10/26/20 17:25 Cholesterol/HDL Ratio 5.11 % 10/26/20 17:25 Serotonin Release Assay See scanned results 11/03/20 11:01 TSH 1.490 mlU/mL (0.270-4.200) 10/26/20 17:28 Arterial Blood Glucose 119 mg/dL (65-95) H 11/23/20 04:25 Arterial Blood Ionized Calcium 4.4 mg/dL (4.6-5.3) L 11/23/20 04:25 Urine Color Yellow (Yellow) 10/27/20 Unknown Urine Turbidity Turbid (Clear) 10/27/20 Unknown Urine pH 8.0 (5.0-7.0) H 10/27/20 Unknown Ur Specific [place] 1.020 (1.003-1.030) 10/27/20 Unknown Urine Protein >500 mg/dL (Negative) 10/27/20 Unknown Urine Glucose (UA) Neg mg/dL (Negative) 10/27/20 Unknown Urine Ketones Neg mg/dL (Negative) 10/27/20 Unknown Urine Blood Sm (Negative) 10/27/20 Unknown Urine Nitrite Neg (Negative) 10/27/20 Unknown Urine Bilirubin Neg (Negative) 10/27/20 Unknown Urine Urobilinogen < 2.0 mg/dL (<2.0) 10/27/20 Unknown Ur Leukocyte Esterase Mod (Negative) 10/27/20 Unknown Urine WBC (Auto) > 182.0 /HPF (0.0-6.0) H 10/27/20 Unknown Urine RBC (Auto) 35.0 /HPF (0.0-6.0) 10/27/20 Unknown Urine WBC Clumps 3+ /HPF 10/27/20 Unknown Urine Mucus 3+ /HPF 10/27/20 Unknown Urine Yeast (Budding) 3+ /HPF 10/27/20 Unknown Vancomycin Trough 18.0 ug/mL (5.0-20.0) 11/19/20 09:06 Salicylates < 0.3 mg/dL (2.8-20.0) L 10/26/20 17:28 Acetaminophen 5.0 ug/mL (10.0-30.0) L 10/26/20 17:28 Heparin-induced Plt Ab Negative (Negative) 11/03/20 11:01 UF Heparin High Dose 0 % Release 11/03/20 11:01 MOISES UFH Low Dose 0.1 2 % Release 11/03/20 11:01 MOISES UFH Low Dose 0.5 0 % Release 11/03/20 11:01 Coronavirus (PCR) Negative (Negative) 10/27/20 Unknown Blood Type O POSITIVE 11/17/20 11:10 Antibody Screen Negative 11/17/20 11:10 Crossmatch See Detail 11/17/20 11:10 Rivas/IV: Voiding Method Indwelling Catheter Active Medications - Current Medications Current Medications: Generic Name Dose Route Start Last Admin Trade Name Freq PRN Reason Stop Dose Admin Acetaminophen 650 mg 10/26/20 22:22 11/13/20 14:36 Acetaminophen 325 Mg Tab PO 650 mg Q4H PRN Administration Pain MILD(1-3)/Fever >100.5/TIERNEY Albuterol 2.5 mg 11/11/20 14:00 11/24/20 14:34 Albuterol 2.5 Mg/3 Ml Nebu IH 2.5 mg TIDRT MARSHALL Administration Amiodarone HCl 400 mg 11/23/20 22:00 11/24/20 09:05 Amiodarone 200 Mg Tab PO 400 mg BID MARSHALL Administration Lipase/Protease/Amylase 1 each 10/28/20 13:18 Lipase 10,500/Protease 25,000/Amylase 43,750 (Units) Dr Tremayne ROSADOTUBE PRN PRN For Clogged Feeding Tube Enoxaparin Sodium 40 mg 11/22/20 22:00 11/23/20 21:33 Enoxaparin 40 Mg/0.4 Ml Inj SUB-Q 40 mg QDAY@2200 MARSHALL Administration Protocol Famotidine 20 mg 04/26/21 22:00 Famotidine 20 Mg Tab PO BID MARSHALL Fentanyl 50 mcg 11/15/20 22:30 11/19/20 09:51 Fentanyl 100 Mcg/2 Ml Inj IV 50 mcg Q10MIN PRN Administration ANALGESIA Hydrophilic Ointment 1 applic 11/15/20 22:30 Lip Therapy Vaseline TP Q2HR PRN Dry Lips Norepinephrine 4 mg in 250 mls @ 7.5 mls/hr 11/15/20 23:45 11/17/20 01:37 Levophed Drip 4 Mg/Ns 250 Ml IV 0 mcg/min TITR MARSHALL 0 mls/hr Titration Protocol 2 MCG/MIN Midodrine 10 mg 11/06/20 12:00 11/24/20 12:14 Midodrine 5 Mg Tab PO 10 mg TID@0800,1200,1600 MARSHALL Administration Multi-Ingred Cream/Lotion/Oil/Oint 1 applic 11/15/20 22:30 Mineral Oil/Petrolatum, White Ophth Oint 3.5 Gm OU Q4HR PRN Dry Eye(s) Ondansetron HCl 4 mg 10/26/20 22:22 Ondansetron 4 Mg/2 Ml Inj IV Q8H PRN Nausea And Vomiting Simple Syrup 15 ml 10/28/20 13:18 11/10/20 16:01 Simple Syrup 15 Ml FEEDTUBE 15 ml PRN PRN Administration Hypoglycemia Simple Syrup 30 ml 10/28/20 13:18 Simple Syrup 15 Ml FEEDTUBE PRN PRN Hypoglycemia Sodium Bicarbonate 325 mg 10/28/20 13:18 Sodium Bicarbonate 325 Mg Tab FEEDTUBE PRN PRN For Clogged Feeding Tube Sodium Chloride 10 ml 10/27/20 10:00 11/24/20 09:05 Sodium Chloride 0.9% 10 Ml Flush Syringe IV 10 ml BID MARSHALL Administration Sodium Chloride 10 ml 10/26/20 22:22 Sodium Chloride 0.9% 10 Ml Flush Syringe IV PRN PRN LINE FLUSH Sodium Hypochlorite 1 applic 10/28/20 10:00 11/24/20 09:05 Sodium Hypochlorite, Dakin's 1/2 Strength (0.25%) 473 Ml Topical Soln TP 1 applicatio BID MARSHALL Administration Nutrition/Malnutrition Assess - Dietary Evaluation Nutrition/Malnutrition Findings: Nutrition Notes Start: 10/27/20 09:15 Freq: Status: Active Protocol: Document 11/23/20 11:18 CW (Rec: 11/23/20 11:25 CW [id number]) Nutrition Notes Initial or Follow up Reassessment Current Diagnosis Acute Kidney Injury,Decubitus( Pressure Ulcer),Sepsis, Hypertension,Respiratory Failure,Hyperlipidemia Other Pertinent Diagnosis AMS, MRSA, Encephalopathy, Metabiloc Acidosis, pneu ,FTT Current Diet Promote at 80 ml/hr Labs/Tests Reviewed Pertinent Medications D10w at 42 ml/hr Lasix Height 6 ft 2 in Weight 85.4 kg [place] Body Weight (kg) 86.36 BMI 24.1 Weight change and time frame wt change noted. Likely r/t bedscale error; Weight Status Obese Subjective/Other Information MD consult for write/manage TF . Pt s/p PEG adn trach placement on 11/21/2020. TF held for 24hrs per MD. Will restart previous regimen for wound healing Percent of energy/protein needs met: 0%/0% Burn Absent Trauma Absent GI Symptoms Diarrhea Difficulty In Swallowing,Chewing Skin Integrity/Comment Multiple pressure ulcer,1 infected Current % PO Negligible Minimum of two criteria No Fluid Accumulation Moderate to Severe (severe) #2 Nutrition Diagnosis Increased nutrient needs ( specify in comment below) Diagnosis Progress(for reassessment Continues documentation) #1 Nutrition Diagnosis Inadequate oral intake Diagnosis Progress(for reassessment Continues documentation) Is patient on ventilator? Yes Is Patient Ambulatory and/or Out of Bed No REE-([facility]-confined to bed) 1989.776 Kcal/Kg value to use for calculation 22 Approximate Energy Requirements Using 1879 kcal/Kg Calculation Used for Recommendations Kcal/kg Additional Notes protein needs: 133 - 167g(1.2 - 1.5 g/kgAdBW 111) Fluid needs 1 ml/kcal Nutrition Intervention Change Diet Order: restart Nutrition Support: Promote at 80 ml/hr with a flush of 50 ml q4h Kcal 1,920 Protein (gm) 120 Fluid (mL) 1,611 Goal #1 TF tolerance Goal #2 Meet at least 75% EER and protein needs via TF Goal #3 wound healing Anticipated Discharge Needs: TF Follow-Up By: 11/26/20 Additional Comments F/U for TF tolerance
[2020-11-24] MEDS: ENOXAPARIN 40 MG/0.4 ML INJ SUB-Q SCH (21:48)
[2020-11-24] MEDS: FAMOTIDINE 20 MG TAB PO SCH (21:52)
[2020-11-25] MEDS: MIDODRINE 5 MG TAB PO SCH ×3 (08:15→16:35)
[2020-11-25] MEDS: ALBUTEROL 2.5 MG/3 ML NEBU IH SCH ×3 (08:41→21:04)
--- NOTE | 2020-11-25 10:07 | Progress Note ---
Assessment and Plan 11/21/20 Pt is s/p Trach & PEG ventilated, unresponsive. Tele reviewed: Afib 100s. No events overnight. Afib with RVR. Optimize rate control. Reduce Amiodarone to 200mg PO BID. Initiate Metoprolol 12.5mg BID. Initiate Midodrine 10mg PO TID. No systemic AC at this time in setting of anemia requiring PRBC tx, thrombocytopenia and sacral ulcer. Elevated Troponin Considering pt's advanced age and comorbidities will plan for conservative cardiac management. Anemia requiring transfusion Continue to hold AC in setting of anemia requiring transfusions. Acute Respiratory Failure s/p Trach. Ventilated. DVT Prophylaxis. On Lovenox DVT prophylaxis. SCDs in place. Will follow The patient has been seen in conjunction with Dr. Landa who agrees with the assessment and plan of care. - Patient Problems (1) AMS (altered mental status) Current Visit: Yes Status: Acute (2) Atrial fibrillation with RVR Current Visit: Yes Status: Acute Currently in SR with PJCs. No AC in setting of anemia. (3) Acute respiratory failure Current Visit: Yes Status: Acute (4) Bilateral pneumonia Current Visit: Yes Status: Acute (5) Sepsis Current Visit: Yes Status: Acute (6) Sepsis associated hypotension Current Visit: Yes Status: Acute Pt is requiring Levophed titration to maintain pressure (7) Sacral decubitus ulcer, stage IV Current Visit: Yes Status: Acute (8) UTI (urinary tract infection) Current Visit: Yes Status: Acute (9) FAZAL (acute kidney injury) Current Visit: Yes Status: Acute (10) Hypomagnesemia Current Visit: Yes Status: Acute (11) Anemia Current Visit: Yes Status: Acute (12) Thrombocytopenia Current Visit: Yes Status: Acute Subjective Date of service: 11/25/20 Principal diagnosis: Acute Resp Fail, PNA, Septic Shock, Sacral Ulcer, AF with RVR Interval history: Pt is s/p Trach & PEG ventilated, unresponsive. Tele reviewed: Afib 90s. No events overnight. Objective Last Vital Signs Temp 98 F 11/25/20 08:00 Pulse 103 H 11/25/20 09:22 Resp 19 11/25/20 09:00 BP 107/71 11/25/20 09:22 Pulse Ox 99 11/25/20 09:22 - Physical Examination General: No Apparent Distress, Other (intubated) HEENT: Positive: EOMI, Normocephaly, Mucus Membranes Moist Neck: Positive: neck supple, trachea midline Cardiac: Positive: irregularly irregular, S1/S2 Lungs: Positive: Ventilated Respirations Neuro: Positive: Other (lethargic) Abdomen: Positive: Soft, Active Bowel Sounds. Negative: Tender Skin: Positive: Wound (sacral). Negative: Rash Musculoskeletal: No Fluid Collection, No Pain Extremities: Present: upper extr. pulses, lower extr. pulses, +1 Edema, Other (chronic skin changes noted) - Imaging and Cardiology EKG: report reviewed, image reviewed Echo: report reviewed (10/28/2020- EF 55-60%, no significant valvular abnormalities) - Telemetry EKG Rhythm: Atrial Fibrillation Repolarization changes or abnormalities: nonspecific abnormality, ST segment, and/or T wave - Allied health notes Allied health notes reviewed: nursing
[2020-11-25] MEDS: SODIUM HYPOCHLORITE, DAKIN'S 1/2 STRENGTH (0.25%) 473 ML TOPICAL SOLN TP SCH ×2 (10:19→21:10)
[2020-11-25] MEDS: FAMOTIDINE 20 MG TAB PO SCH ×2 (10:20→21:09)
[2020-11-25] MEDS: AMIODARONE 200 MG TAB PO SCH ×2 (10:34→21:09)
[2020-11-25] MEDS: METOPROLOL TARTRATE 25 MG TAB PO SCH ×2 (11:43→21:08)
[2020-11-25 12:07] LABS: Hematocrit 22.5 % (35.5-45.6); Hemoglobin 7.3 gm/dl (11.8-15.2); Mean Corpuscular HGB Conc 32 % (32-34); Mean Corpuscular Volume 99 fl (84-94); Platelet Count 280 K/mm3 (140-440); Red Blood Count 2.28 M/mm3 (3.65-5.03); Red Cell Distribution Width 18.3 % (13.2-15.2)
--- NOTE | 2020-11-25 12:17 | Progress Note ---
Assessment and Plan Cultures: 10/26/2020 tracheal aspirate culture: MRSA 10/26/2020 blood culture: Proteus 10/27/2020 urine culture: Mixed hien 11/15/2020 sputum culture: MRSA A/P: 75-year-old male, [facility] resident with seizure disorder, hypertension, depression, hyperlipidemia, chronic encephalopathy was sent to the hospital with worsening mental status: #Septic shock: probably from pneumonia. Resolved #Acute hypoxic respiratory failure: on the vent, s/p trach. #Proteus bacteremia: multifactorial from infected sacral decubitus ulcer, bilateral pneumonia, UTI. S/P abx. #Acute diarrhea: ?C. difficile, improved on vancomycin p.o. Diarrhea improved, Cdiff test was not able to be done. #Necrotic, infected sacral decubitus ulcer: underwent debridement 10/29/2020, also noted to have brittle coccyx consistent with osteomyelitis. s/p abx. #UTI: UA with significant pyuria. #FAZAL: resolved #PVD: SFA occlusion. Not a candidate for revascularization per vascular Recs: Monitor WBC. Leucocytosis multifactorial including from ischemic feet/digits No fever, remains off pressors. Monitor off antibiotics Stephania Starr MD, FACP [facility] O: [phone] F: [phone] Subjective Date of service: 11/25/20 Principal diagnosis: Acute Resp Fail, PNA, Septic Shock, Sacral Ulcer, AF with RVR Interval history: No fever. Opens eyes. On vent via trach. No distress. Remains off pressors. Objective - Exam Narrative Exam: Physical Exam: Constitutional: awake, on the vent Head, Ears, Nose: Normocephalic, atraumatic. External ears, nose normal Eyes: Conjunctivae/corneas clear. No icterus. No ptosis. Neck: trach Oral: limited Cardiovascular: S1, S2 + Respiratory: AE fair bilaterally and equal GI: Soft, bowel sounds +, PEG + Musculoskeletal: Anasarca. Bilateral lower extremities with wounds, ischemic digits Skin: No rash or abscess Hem/Lymphatic: No palpable cervical or supraclavicular nodes. No lymphangitis Psych: no agitation Neurological: awake, on the vent via trach. - Constitutional Vitals: Vital Signs Temp Pulse Resp BP Pulse Ox 98 F 102 H 27 H 104/69 95 11/25/20 08:00 11/25/20 11:00 11/25/20 11:00 11/25/20 11:00 11/25/20 10:30 Temperature -Last 24 Hours Temperature 98 F Temperature 98.0 F Temperature 98.5 F Temperature 98.8 F Temperature 97.9 F - Labs CBC & Chem 7: 11/25/20 11:20 11/23/20 10:23 Labs: Abnormal lab results 11/24/20 11/24/20 11/24/20 Range/Units 11:27 16:48 23:11 WBC (4.5-11.0) K/mm3 RBC (3.65-5.03) M/mm3 Hgb (11.8-15.2) gm/dl Hct (35.5-45.6) % MCV (84-94) fl RDW (13.2-15.2) % POC Glucose 137 H 128 H 114 H (70-105) mg/dL 11/25/20 11/25/20 11/25/20 Range/Units 05:06 11:20 11:31 WBC 19.0 H (4.5-11.0) K/mm3 RBC 2.28 L (3.65-5.03) M/mm3 Hgb 7.3 L (11.8-15.2) gm/dl Hct 22.5 L (35.5-45.6) % MCV 99 H (84-94) fl RDW 18.3 H (13.2-15.2) % POC Glucose 125 H 106 H (70-105) mg/dL
--- NOTE | 2020-11-25 13:59 | Progress Note ---
Assessment and Plan - Patient Problems (1) FAZAL (acute kidney injury) Current Visit: Yes Status: Acute (2) Acute respiratory failure with hypoxia Current Visit: Yes Status: Acute (3) Atrial fibrillation and flutter Current Visit: Yes Status: Acute (4) Sacral decubitus ulcer, stage IV Current Visit: Yes Status: Acute (5) Sepsis Current Visit: Yes Status: Acute Subjective Principal diagnosis: Acute Resp Fail, PNA, Septic Shock, Sacral Ulcer, AF with RVR Interval history: on cpapps 10 peep 6 fio2 45% Objective Vital Signs - 12hr 11/25/20 11/25/20 11/25/20 02:00 02:30 03:00 Temperature Pulse Rate 100 H 116 H 125 H Pulse Rate [ Anterior Bilateral Throughout] Pulse Rate [ From Monitor] Respiratory 10 L 15 14 Rate Respiratory Rate [Anterior Bilateral Throughout] Blood Pressure 100/57 100/57 117/75 O2 Sat by Pulse 92 90 94 Oximetry O2 Sat by Pulse Oximetry [ Assessment] 11/25/20 11/25/20 11/25/20 03:30 03:58 04:00 Temperature 98.0 F Pulse Rate 107 H 102 H Pulse Rate [ Anterior Bilateral Throughout] Pulse Rate [ 91 H From Monitor] Respiratory 13 9 L Rate Respiratory Rate [Anterior Bilateral Throughout] Blood Pressure 113/70 101/67 O2 Sat by Pulse 94 97 Oximetry O2 Sat by Pulse Oximetry [ Assessment] 11/25/20 11/25/20 11/25/20 04:30 05:00 05:19 Temperature Pulse Rate 101 H 97 H Pulse Rate [ Anterior Bilateral Throughout] Pulse Rate [ From Monitor] Respiratory 14 11 L Rate Respiratory Rate [Anterior Bilateral Throughout] Blood Pressure 89/59 98/65 O2 Sat by Pulse 96 Oximetry O2 Sat by Pulse 98 Oximetry [ Assessment] 11/25/20 11/25/20 11/25/20 05:21 05:30 06:00 Temperature Pulse Rate 94 H 111 H 99 H Pulse Rate [ Anterior Bilateral Throughout] Pulse Rate [ From Monitor] Respiratory 14 0 L Rate Respiratory Rate [Anterior Bilateral Throughout] Blood Pressure 89/59 101/59 98/58 O2 Sat by Pulse 98 98 93 Oximetry O2 Sat by Pulse Oximetry [ Assessment] 11/25/20 11/25/20 11/25/20 06:30 07:00 07:30 Temperature Pulse Rate 103 H 95 H 102 H Pulse Rate [ Anterior Bilateral Throughout] Pulse Rate [ From Monitor] Respiratory 10 L 20 14 Rate Respiratory Rate [Anterior Bilateral Throughout] Blood Pressure 104/64 96/61 96/61 O2 Sat by Pulse 96 95 100 Oximetry O2 Sat by Pulse Oximetry [ Assessment] 11/25/20 11/25/20 11/25/20 08:00 08:30 08:45 Temperature 98 F Pulse Rate 88 97 H 104 H Pulse Rate [ 105 H Anterior Bilateral Throughout] Pulse Rate [ From Monitor] Respiratory 13 19 Rate Respiratory 13 Rate [Anterior Bilateral Throughout] Blood Pressure 118/79 103/69 103/69 O2 Sat by Pulse 97 94 97 Oximetry O2 Sat by Pulse Oximetry [ Assessment] 11/25/20 11/25/20 11/25/20 09:00 09:22 09:30 Temperature Pulse Rate 91 H 103 H 98 H Pulse Rate [ Anterior Bilateral Throughout] Pulse Rate [ From Monitor] Respiratory 19 19 Rate Respiratory Rate [Anterior Bilateral Throughout] Blood Pressure 107/71 107/71 115/71 O2 Sat by Pulse 97 99 96 Oximetry O2 Sat by Pulse Oximetry [ Assessment] 11/25/20 11/25/20 11/25/20 10:00 10:30 11:00 Temperature Pulse Rate 104 H 96 H 102 H Pulse Rate [ Anterior Bilateral Throughout] Pulse Rate [ From Monitor] Respiratory 25 H 16 27 H Rate Respiratory Rate [Anterior Bilateral Throughout] Blood Pressure 120/80 104/70 104/69 O2 Sat by Pulse 96 95 Oximetry O2 Sat by Pulse Oximetry [ Assessment] 11/25/20 11/25/20 11/25/20 11:30 12:00 12:30 Temperature Pulse Rate 97 H 99 H 93 H Pulse Rate [ Anterior Bilateral Throughout] Pulse Rate [ From Monitor] Respiratory 25 H 24 22 Rate Respiratory Rate [Anterior Bilateral Throughout] Blood Pressure 108/73 113/65 105/63 O2 Sat by Pulse 96 94 95 Oximetry O2 Sat by Pulse Oximetry [ Assessment] 11/25/20 13:26 Temperature Pulse Rate 90 Pulse Rate [ 86 Anterior Bilateral Throughout] Pulse Rate [ From Monitor] Respiratory Rate Respiratory 20 Rate [Anterior Bilateral Throughout] Blood Pressure 109/58 O2 Sat by Pulse 96 Oximetry O2 Sat by Pulse Oximetry [ Assessment] Constitutional: alert, other ( trach on vent) Eyes: non-icteric ENT: oropharynx moist Neck: supple Effort: normal Ascultation: Bilateral: clear, rhonchi Percussion: Bilateral: not dull Cardiovascular: regular rate and rhythm (no mrg) Gastrointestinal: normoactive bowel sounds, soft, non-tender Extremities: no cyanosis, cool, anasarca Neurologic: non-focal exam Psychiatric: mood appropriate, affect normal CBC and BMP: 11/25/20 11:20 11/23/20 10:23 ABG, PT/INR, D-dimer: ABG ABG pH 7.489 (7.320-7.450) H 11/23/20 04:25 POC ABG pCO2 38.2 mmHg (32.0-48.0) 11/23/20 04:25 ABG pCO2 43.4 mm Hg 11/19/20 Unknown POC ABG pO2 74.7 mmHg (83-108) L 11/23/20 04:25 ABG pO2 72.4 mm Hg (80.0-90.0) L 11/19/20 Unknown POC ABG HCO3 28.4 11/23/20 04:25 ABG O2 Saturation 95.5 (0-100) 11/23/20 04:25 PT/INR, D-dimer PT 14.7 Sec. (12.2-14.9) 11/19/20 06:36 INR 1.15 (0.87-1.13) H 11/19/20 06:36 Abnormal lab findings: Abnormal Labs 10/26/20 10/26/20 10/26/20 17:25 17:25 17:25 WBC 23.3 H RBC 3.10 L Hgb 9.6 L Hct 30.3 L MCV 98 H MCH MCHC RDW 17.4 H Plt Count 521 H Lymph % (Auto) Seg Neutrophils % Seg Neuts % (Manual) 78.0 H Lymphocytes % (Manual) 11.0 L Nucleated RBC % Seg Neutrophils # Seg Neutrophils # Man 18.2 H Lymphocytes # (Manual) Monocytes # (Manual) 1.4 H PT INR ABG pH POC ABG pCO2 POC ABG pO2 ABG pO2 ABG HCO3 ABG O2 Saturation ABG Base Excess ABG Hemoglobin ABG Oxyhemoglobin ABG Sodium ABG Potassium ABG Chloride ABG Glucose Oxyhemoglobin Carboxyhemoglobin Sodium 148 H Potassium Chloride 109.3 H Carbon Dioxide 19 L BUN 57 H Creatinine 1.5 H Glucose 151 H POC Glucose Lactic Acid 9.60 H* Calcium Phosphorus Magnesium Total Creatine Kinase Troponin T 0.062 H Total Protein Albumin 1.7 L Triglycerides 190 H LDL Cholesterol Direct 33 L HDL Cholesterol 18 L Arterial Blood Glucose Arterial Blood Ionized Calcium Urine pH Urine WBC (Auto) Vancomycin Trough Salicylates Acetaminophen Crossmatch 10/26/20 10/26/20 10/26/20 17:28 17:28 17:28 WBC RBC Hgb Hct MCV MCH MCHC RDW Plt Count Lymph % (Auto) Seg Neutrophils % Seg Neuts % (Manual) Lymphocytes % (Manual) Nucleated RBC % Seg Neutrophils # Seg Neutrophils # Man Lymphocytes # (Manual) Monocytes # (Manual) PT INR ABG pH POC ABG pCO2 POC ABG pO2 ABG pO2 ABG HCO3 ABG O2 Saturation ABG Base Excess ABG Hemoglobin ABG Oxyhemoglobin ABG Sodium ABG Potassium ABG Chloride ABG Glucose Oxyhemoglobin Carboxyhemoglobin Sodium Potassium Chloride Carbon Dioxide BUN Creatinine Glucose POC Glucose Lactic Acid Calcium Phosphorus Magnesium Total Creatine Kinase 31 L Troponin T Total Protein Albumin Triglycerides LDL Cholesterol Direct HDL Cholesterol Arterial Blood Glucose Arterial Blood Ionized Calcium Urine pH Urine WBC (Auto) Vancomycin Trough Salicylates < 0.3 L Acetaminophen 5.0 L Crossmatch 10/26/20 10/26/20 10/26/20 17:30 20:11 22:00 WBC RBC Hgb Hct MCV MCH MCHC RDW Plt Count Lymph % (Auto) Seg Neutrophils % Seg Neuts % (Manual) Lymphocytes % (Manual) Nucleated RBC % Seg Neutrophils # Seg Neutrophils # Man Lymphocytes # (Manual) Monocytes # (Manual) PT INR ABG pH 7.235 L POC ABG pCO2 POC ABG pO2 ABG pO2 312.4 H ABG HCO3 16.4 L ABG O2 Saturation 99.5 H ABG Base Excess -10.4 L ABG Hemoglobin 11.0 L ABG Oxyhemoglobin ABG Sodium ABG Potassium ABG Chloride ABG Glucose Oxyhemoglobin Carboxyhemoglobin Sodium Potassium Chloride Carbon Dioxide BUN Creatinine Glucose POC Glucose Lactic Acid 7.70 H* 6.40 H* Calcium Phosphorus Magnesium Total Creatine Kinase Troponin T Total Protein Albumin Triglycerides LDL Cholesterol Direct HDL Cholesterol Arterial Blood Glucose Arterial Blood Ionized Calcium Urine pH Urine WBC (Auto) Vancomycin Trough Salicylates Acetaminophen Crossmatch 10/27/20 10/27/20 10/27/20 03:25 03:30 04:00 WBC 20.3 H RBC 3.10 L Hgb 9.6 L Hct 30.6 L MCV 99 H MCH MCHC 31 L RDW 16.9 H Plt Count Lymph % (Auto) Seg Neutrophils % Seg Neuts % (Manual) Lymphocytes % (Manual) Nucleated RBC % Seg Neutrophils # Seg Neutrophils # Man 11.6 H Lymphocytes # (Manual) Monocytes # (Manual) PT INR ABG pH 7.218 L POC ABG pCO2 POC ABG pO2 62.9 L ABG pO2 ABG HCO3 ABG O2 Saturation ABG Base Excess ABG Hemoglobin 10.6 L ABG Oxyhemoglobin 86.6 L ABG Sodium ABG Potassium 4.8 H ABG Chloride 114.0 H ABG Glucose 116 H Oxyhemoglobin Carboxyhemoglobin 0.4 L Sodium Potassium Chloride 110.2 H Carbon Dioxide 17 L BUN 55 H Creatinine 1.5 H Glucose 109 H POC Glucose Lactic Acid Calcium 7.9 L Phosphorus Magnesium Total Creatine Kinase Troponin T Total Protein Albumin 1.3 L Triglycerides LDL Cholesterol Direct HDL Cholesterol Arterial Blood Glucose 116 H Arterial Blood Ionized Calcium Urine pH Urine WBC (Auto) Vancomycin Trough Salicylates Acetaminophen Crossmatch 10/27/20 10/28/20 10/28/20 Unknown 00:40 00:40 WBC 23.1 H RBC 2.42 L Hgb 7.5 L Hct 23.7 L D MCV 98 H MCH MCHC RDW 16.8 H Plt Count Lymph % (Auto) Seg Neutrophils % Seg Neuts % (Manual) Lymphocytes % (Manual) Nucleated RBC % Seg Neutrophils # Seg Neutrophils # Man Lymphocytes # (Manual) Monocytes # (Manual) PT INR ABG pH POC ABG pCO2 POC ABG pO2 ABG pO2 ABG HCO3 ABG O2 Saturation ABG Base Excess ABG Hemoglobin ABG Oxyhemoglobin ABG Sodium ABG Potassium ABG Chloride ABG Glucose Oxyhemoglobin Carboxyhemoglobin Sodium Potassium Chloride 111.4 H Carbon Dioxide 19 L BUN 49 H Creatinine Glucose POC Glucose Lactic Acid Calcium 7.3 L Phosphorus Magnesium 1.40 L Total Creatine Kinase Troponin T Total Protein 5.8 L Albumin 1.2 L Triglycerides LDL Cholesterol Direct HDL Cholesterol Arterial Blood Glucose Arterial Blood Ionized Calcium Urine pH 8.0 H Urine WBC (Auto) > 182.0 H Vancomycin Trough Salicylates Acetaminophen Crossmatch 10/28/20 10/28/20 10/28/20 03:30 05:36 05:36 WBC RBC Hgb Hct MCV MCH MCHC RDW Plt Count Lymph % (Auto) Seg Neutrophils % Seg Neuts % (Manual) Lymphocytes % (Manual) Nucleated RBC % Seg Neutrophils # Seg Neutrophils # Man Lymphocytes # (Manual) Monocytes # (Manual) PT INR ABG pH 7.175 L POC ABG pCO2 POC ABG pO2 71.5 L ABG pO2 ABG HCO3 ABG O2 Saturation ABG Base Excess ABG Hemoglobin 8.8 L ABG Oxyhemoglobin ABG Sodium ABG Potassium 4.7 H ABG Chloride 114.0 H ABG Glucose 100 H Oxyhemoglobin Carboxyhemoglobin Sodium Potassium Chloride 114.6 H Carbon Dioxide 15 L BUN 48 H Creatinine 1.4 H Glucose POC Glucose Lactic Acid 7.60 H* Calcium 7.7 L Phosphorus Magnesium Total Creatine Kinase Troponin T Total Protein Albumin Triglycerides LDL Cholesterol Direct HDL Cholesterol Arterial Blood Glucose 100 H Arterial Blood Ionized Calcium 4.4 L Urine pH Urine WBC (Auto) Vancomycin Trough Salicylates Acetaminophen Crossmatch 10/28/20 10/28/20 10/29/20 17:18 23:18 03:50 WBC RBC Hgb Hct MCV MCH MCHC RDW Plt Count Lymph % (Auto) Seg Neutrophils % Seg Neuts % (Manual) Lymphocytes % (Manual) Nucleated RBC % Seg Neutrophils # Seg Neutrophils # Man Lymphocytes # (Manual) Monocytes # (Manual) PT INR ABG pH POC ABG pCO2 30.0 L POC ABG pO2 ABG pO2 ABG HCO3 ABG O2 Saturation ABG Base Excess ABG Hemoglobin 8.1 L ABG Oxyhemoglobin ABG Sodium ABG Potassium ABG Chloride 113.0 H ABG Glucose 153 H Oxyhemoglobin Carboxyhemoglobin 0.4 L Sodium Potassium Chloride Carbon Dioxide BUN Creatinine Glucose POC Glucose 134 H 149 H Lactic Acid Calcium Phosphorus Magnesium Total Creatine Kinase Troponin T Total Protein Albumin Triglycerides LDL Cholesterol Direct HDL Cholesterol Arterial Blood Glucose 153 H Arterial Blood Ionized Calcium 4.1 L Urine pH Urine WBC (Auto) Vancomycin Trough Salicylates Acetaminophen Crossmatch 10/29/20 10/29/20 10/29/20 05:09 05:15 05:15 WBC 23.9 H RBC 2.66 L Hgb 8.3 L Hct 26.3 L MCV 99 H MCH MCHC RDW 17.5 H Plt Count Lymph % (Auto) Seg Neutrophils % Seg Neuts % (Manual) Lymphocytes % (Manual) Nucleated RBC % Seg Neutrophils # Seg Neutrophils # Man Lymphocytes # (Manual) Monocytes # (Manual) PT INR ABG pH POC ABG pCO2 POC ABG pO2 ABG pO2 ABG HCO3 ABG O2 Saturation ABG Base Excess ABG Hemoglobin ABG Oxyhemoglobin ABG Sodium ABG Potassium ABG Chloride ABG Glucose Oxyhemoglobin Carboxyhemoglobin Sodium Potassium Chloride 110.4 H Carbon Dioxide 15 L BUN 40 H Creatinine Glucose 140 H POC Glucose 123 H Lactic Acid Calcium 7.0 L Phosphorus Magnesium Total Creatine Kinase Troponin T Total Protein 6.0 L Albumin 1.0 L Triglycerides LDL Cholesterol Direct HDL Cholesterol Arterial Blood Glucose Arterial Blood Ionized Calcium Urine pH Urine WBC (Auto) Vancomycin Trough Salicylates Acetaminophen Crossmatch 10/29/20 10/29/20 10/29/20 05:15 10:37 11:41 WBC RBC Hgb Hct MCV MCH MCHC RDW Plt Count Lymph % (Auto) Seg Neutrophils % Seg Neuts % (Manual) Lymphocytes % (Manual) Nucleated RBC % Seg Neutrophils # Seg Neutrophils # Man Lymphocytes # (Manual) Monocytes # (Manual) PT INR ABG pH POC ABG pCO2 POC ABG pO2 ABG pO2 ABG HCO3 ABG O2 Saturation ABG Base Excess ABG Hemoglobin ABG Oxyhemoglobin ABG Sodium ABG Potassium ABG Chloride ABG Glucose Oxyhemoglobin Carboxyhemoglobin Sodium Potassium Chloride Carbon Dioxide BUN Creatinine Glucose POC Glucose 121 H Lactic Acid 9.90 H* 10.90 H* Calcium Phosphorus Magnesium Total Creatine Kinase Troponin T Total Protein Albumin Triglycerides LDL Cholesterol Direct HDL Cholesterol Arterial Blood Glucose Arterial Blood Ionized Calcium Urine pH Urine WBC (Auto) Vancomycin Trough Salicylates Acetaminophen Crossmatch 10/29/20 10/29/20 10/30/20 15:56 23:24 02:26 WBC RBC Hgb Hct MCV MCH MCHC RDW Plt Count Lymph % (Auto) Seg Neutrophils % Seg Neuts % (Manual) Lymphocytes % (Manual) Nucleated RBC % Seg Neutrophils # Seg Neutrophils # Man Lymphocytes # (Manual) Monocytes # (Manual) PT INR ABG pH POC ABG pCO2 POC ABG pO2 76.6 L ABG pO2 ABG HCO3 ABG O2 Saturation ABG Base Excess ABG Hemoglobin 6.4 L ABG Oxyhemoglobin 93.8 L ABG Sodium ABG Potassium 2.9 L ABG Chloride 110.0 H ABG Glucose 212 H Oxyhemoglobin Carboxyhemoglobin Sodium Potassium Chloride Carbon Dioxide BUN Creatinine Glucose POC Glucose 132 H 175 H Lactic Acid Calcium Phosphorus Magnesium Total Creatine Kinase Troponin T Total Protein Albumin Triglycerides LDL Cholesterol Direct HDL Cholesterol Arterial Blood Glucose 212 H Arterial Blood Ionized Calcium 3.9 L Urine pH Urine WBC (Auto) Vancomycin Trough Salicylates Acetaminophen Crossmatch 10/30/20 10/30/20 10/30/20 04:54 04:54 05:14 WBC 20.7 H RBC 2.28 L Hgb 7.0 L Hct 21.9 L MCV 96 H MCH MCHC RDW 17.0 H Plt Count 90 L Lymph % (Auto) Seg Neutrophils % Seg Neuts % (Manual) Lymphocytes % (Manual) Nucleated RBC % Seg Neutrophils # Seg Neutrophils # Man Lymphocytes # (Manual) Monocytes # (Manual) PT INR ABG pH POC ABG pCO2 POC ABG pO2 ABG pO2 ABG HCO3 ABG O2 Saturation ABG Base Excess ABG Hemoglobin ABG Oxyhemoglobin ABG Sodium ABG Potassium ABG Chloride ABG Glucose Oxyhemoglobin Carboxyhemoglobin Sodium Potassium 3.0 L D Chloride Carbon Dioxide BUN 28 H Creatinine 0.6 L Glucose 214 H POC Glucose 187 H Lactic Acid Calcium 6.2 L Phosphorus Magnesium Total Creatine Kinase Troponin T Total Protein Albumin Triglycerides LDL Cholesterol Direct HDL Cholesterol Arterial Blood Glucose Arterial Blood Ionized Calcium Urine pH Urine WBC (Auto) Vancomycin Trough Salicylates Acetaminophen Crossmatch 10/30/20 10/30/20 10/30/20 09:30 11:40 17:51 WBC RBC Hgb Hct MCV MCH MCHC RDW Plt Count Lymph % (Auto) Seg Neutrophils % Seg Neuts % (Manual) Lymphocytes % (Manual) Nucleated RBC % Seg Neutrophils # Seg Neutrophils # Man Lymphocytes # (Manual) Monocytes # (Manual) PT INR ABG pH POC ABG pCO2 POC ABG pO2 ABG pO2 ABG HCO3 ABG O2 Saturation ABG Base Excess ABG Hemoglobin ABG Oxyhemoglobin ABG Sodium ABG Potassium ABG Chloride ABG Glucose Oxyhemoglobin Carboxyhemoglobin Sodium Potassium Chloride Carbon Dioxide BUN Creatinine Glucose POC Glucose 183 H 136 H Lactic Acid Calcium Phosphorus Magnesium Total Creatine Kinase Troponin T Total Protein Albumin Triglycerides LDL Cholesterol Direct HDL Cholesterol Arterial Blood Glucose Arterial Blood Ionized Calcium Urine pH Urine WBC (Auto) Vancomycin Trough Salicylates Acetaminophen Crossmatch See Detail 10/30/20 10/30/20 10/30/20 18:53 23:25 Unknown WBC RBC Hgb Hct MCV MCH MCHC RDW Plt Count Lymph % (Auto) Seg Neutrophils % Seg Neuts % (Manual) Lymphocytes % (Manual) Nucleated RBC % Seg Neutrophils # Seg Neutrophils # Man Lymphocytes # (Manual) Monocytes # (Manual) PT INR ABG pH POC ABG pCO2 POC ABG pO2 ABG pO2 ABG HCO3 ABG O2 Saturation ABG Base Excess ABG Hemoglobin ABG Oxyhemoglobin ABG Sodium ABG Potassium ABG Chloride ABG Glucose Oxyhemoglobin Carboxyhemoglobin Sodium Potassium Chloride Carbon Dioxide BUN Creatinine Glucose POC Glucose 130 H Lactic Acid Calcium Phosphorus Magnesium Total Creatine Kinase Troponin T Total Protein Albumin Triglycerides LDL Cholesterol Direct HDL Cholesterol Arterial Blood Glucose Arterial Blood Ionized Calcium Urine pH Urine WBC (Auto) Vancomycin Trough 21.4 H 22.0 H Salicylates Acetaminophen Crossmatch 10/30/20 10/31/20 10/31/20 Unknown 02:54 03:42 WBC 21.1 H 23.0 H RBC 2.36 L Hgb 7.3 L 11.4 L D Hct 22.7 L 34.1 L D MCV 96 H MCH MCHC RDW 17.1 H 16.2 H Plt Count 73 L 33 L Lymph % (Auto) Seg Neutrophils % Seg Neuts % (Manual) Lymphocytes % (Manual) Nucleated RBC % Seg Neutrophils # Seg Neutrophils # Man Lymphocytes # (Manual) Monocytes # (Manual) PT INR ABG pH 7.517 H POC ABG pCO2 25.7 L POC ABG pO2 52.3 L ABG pO2 ABG HCO3 ABG O2 Saturation ABG Base Excess ABG Hemoglobin ABG Oxyhemoglobin 90.8 L ABG Sodium ABG Potassium ABG Chloride 109.0 H ABG Glucose 147 H Oxyhemoglobin Carboxyhemoglobin Sodium Potassium Chloride Carbon Dioxide BUN Creatinine Glucose POC Glucose Lactic Acid Calcium Phosphorus Magnesium Total Creatine Kinase Troponin T Total Protein Albumin Triglycerides LDL Cholesterol Direct HDL Cholesterol Arterial Blood Glucose 147 H Arterial Blood Ionized Calcium 4.0 L Urine pH Urine WBC (Auto) Vancomycin Trough Salicylates Acetaminophen Crossmatch 10/31/20 10/31/20 10/31/20 04:37 04:37 05:08 WBC 21.7 H RBC Hgb Hct MCV MCH MCHC RDW 16.1 H Plt Count 39 L Lymph % (Auto) Seg Neutrophils % Seg Neuts % (Manual) Lymphocytes % (Manual) Nucleated RBC % Seg Neutrophils # Seg Neutrophils # Man Lymphocytes # (Manual) Monocytes # (Manual) PT INR ABG pH POC ABG pCO2 POC ABG pO2 ABG pO2 ABG HCO3 ABG O2 Saturation ABG Base Excess ABG Hemoglobin ABG Oxyhemoglobin ABG Sodium ABG Potassium ABG Chloride ABG Glucose Oxyhemoglobin Carboxyhemoglobin Sodium Potassium Chloride 108.4 H Carbon Dioxide BUN 25 H Creatinine 0.5 L Glucose 140 H POC Glucose 140 H Lactic Acid Calcium 6.1 L Phosphorus Magnesium 1.50 L Total Creatine Kinase Troponin T Total Protein Albumin Triglycerides LDL Cholesterol Direct HDL Cholesterol Arterial Blood Glucose Arterial Blood Ionized Calcium Urine pH Urine WBC (Auto) Vancomycin Trough Salicylates Acetaminophen Crossmatch 10/31/20 10/31/20 10/31/20 11:12 18:50 23:21 WBC RBC Hgb Hct MCV MCH MCHC RDW Plt Count Lymph % (Auto) Seg Neutrophils % Seg Neuts % (Manual) Lymphocytes % (Manual) Nucleated RBC % Seg Neutrophils # Seg Neutrophils # Man Lymphocytes # (Manual) Monocytes # (Manual) PT INR ABG pH POC ABG pCO2 POC ABG pO2 ABG pO2 ABG HCO3 ABG O2 Saturation ABG Base Excess ABG Hemoglobin ABG Oxyhemoglobin ABG Sodium ABG Potassium ABG Chloride ABG Glucose Oxyhemoglobin Carboxyhemoglobin Sodium Potassium Chloride Carbon Dioxide BUN Creatinine Glucose POC Glucose 125 H 142 H 127 H Lactic Acid Calcium Phosphorus Magnesium Total Creatine Kinase Troponin T Total Protein Albumin Triglycerides LDL Cholesterol Direct HDL Cholesterol Arterial Blood Glucose Arterial Blood Ionized Calcium Urine pH Urine WBC (Auto) Vancomycin Trough Salicylates Acetaminophen Crossmatch 10/31/20 11/01/20 11/01/20 Unknown 03:40 04:21 WBC RBC Hgb Hct MCV MCH MCHC RDW Plt Count Lymph % (Auto) Seg Neutrophils % Seg Neuts % (Manual) Lymphocytes % (Manual) Nucleated RBC % Seg Neutrophils # Seg Neutrophils # Man Lymphocytes # (Manual) Monocytes # (Manual) PT INR ABG pH 7.489 H POC ABG pCO2 POC ABG pO2 ABG pO2 77.2 L ABG HCO3 ABG O2 Saturation ABG Base Excess ABG Hemoglobin 7.1 L ABG Oxyhemoglobin ABG Sodium ABG Potassium ABG Chloride ABG Glucose Oxyhemoglobin Carboxyhemoglobin Sodium Potassium 3.1 L Chloride 107.1 H Carbon Dioxide BUN 25 H Creatinine 0.5 L Glucose 148 H POC Glucose Lactic Acid 4.30 H* Calcium 6.0 L Phosphorus Magnesium Total Creatine Kinase Troponin T Total Protein Albumin Triglycerides LDL Cholesterol Direct HDL Cholesterol Arterial Blood Glucose Arterial Blood Ionized Calcium Urine pH Urine WBC (Auto) Vancomycin Trough Salicylates Acetaminophen Crossmatch 11/01/20 11/01/20 11/01/20 05:13 11:42 17:38 WBC RBC Hgb Hct MCV MCH MCHC RDW Plt Count Lymph % (Auto) Seg Neutrophils % Seg Neuts % (Manual) Lymphocytes % (Manual) Nucleated RBC % Seg Neutrophils # Seg Neutrophils # Man Lymphocytes # (Manual) Monocytes # (Manual) PT INR ABG pH POC ABG pCO2 POC ABG pO2 ABG pO2 ABG HCO3 ABG O2 Saturation ABG Base Excess ABG Hemoglobin ABG Oxyhemoglobin ABG Sodium ABG Potassium ABG Chloride ABG Glucose Oxyhemoglobin Carboxyhemoglobin Sodium Potassium Chloride Carbon Dioxide BUN Creatinine Glucose POC Glucose 139 H 139 H 161 H Lactic Acid Calcium Phosphorus Magnesium Total Creatine Kinase Troponin T Total Protein Albumin Triglycerides LDL Cholesterol Direct HDL Cholesterol Arterial Blood Glucose Arterial Blood Ionized Calcium Urine pH Urine WBC (Auto) Vancomycin Trough Salicylates Acetaminophen Crossmatch 11/01/20 11/01/20 11/02/20 23:20 Unknown 04:30 WBC 18.2 H RBC 3.27 L Hgb 9.9 L Hct 30.1 L D MCV MCH MCHC RDW 15.7 H Plt Count 34 L Lymph % (Auto) Seg Neutrophils % Seg Neuts % (Manual) Lymphocytes % (Manual) Nucleated RBC % Seg Neutrophils # Seg Neutrophils # Man Lymphocytes # (Manual) Monocytes # (Manual) PT INR ABG pH 7.456 H POC ABG pCO2 POC ABG pO2 ABG pO2 ABG HCO3 ABG O2 Saturation ABG Base Excess ABG Hemoglobin 9.2 L ABG Oxyhemoglobin ABG Sodium ABG Potassium ABG Chloride ABG Glucose Oxyhemoglobin Carboxyhemoglobin Sodium Potassium Chloride Carbon Dioxide BUN Creatinine Glucose POC Glucose 168 H Lactic Acid Calcium Phosphorus Magnesium Total Creatine Kinase Troponin T Total Protein Albumin Triglycerides LDL Cholesterol Direct HDL Cholesterol Arterial Blood Glucose Arterial Blood Ionized Calcium Urine pH Urine WBC (Auto) Vancomycin Trough Salicylates Acetaminophen Crossmatch 11/02/20 11/02/20 11/02/20 06:29 08:40 08:40 WBC 16.6 H RBC 2.87 L Hgb 8.8 L Hct 26.6 L MCV MCH MCHC RDW 15.8 H Plt Count 30 L Lymph % (Auto) Seg Neutrophils % Seg Neuts % (Manual) 97.0 H Lymphocytes % (Manual) 2.0 L Nucleated RBC % 1.0 H Seg Neutrophils # Seg Neutrophils # Man 16.1 H Lymphocytes # (Manual) 0.3 L Monocytes # (Manual) PT INR ABG pH POC ABG pCO2 POC ABG pO2 ABG pO2 ABG HCO3 ABG O2 Saturation ABG Base Excess ABG Hemoglobin ABG Oxyhemoglobin ABG Sodium ABG Potassium ABG Chloride ABG Glucose Oxyhemoglobin Carboxyhemoglobin Sodium Potassium 2.4 L* D Chloride 110.2 H Carbon Dioxide BUN 23 H Creatinine 0.4 L Glucose 154 H POC Glucose 131 H Lactic Acid Calcium 6.1 L Phosphorus Magnesium 1.50 L Total Creatine Kinase Troponin T Total Protein Albumin Triglycerides LDL Cholesterol Direct HDL Cholesterol Arterial Blood Glucose Arterial Blood Ionized Calcium Urine pH Urine WBC (Auto) Vancomycin Trough Salicylates Acetaminophen Crossmatch 11/02/20 11/02/20 11/02/20 13:17 17:25 18:05 WBC RBC Hgb Hct MCV MCH MCHC RDW Plt Count Lymph % (Auto) Seg Neutrophils % Seg Neuts % (Manual) Lymphocytes % (Manual) Nucleated RBC % Seg Neutrophils # Seg Neutrophils # Man Lymphocytes # (Manual) Monocytes # (Manual) PT INR ABG pH POC ABG pCO2 POC ABG pO2 ABG pO2 ABG HCO3 ABG O2 Saturation ABG Base Excess ABG Hemoglobin ABG Oxyhemoglobin ABG Sodium ABG Potassium ABG Chloride ABG Glucose Oxyhemoglobin Carboxyhemoglobin Sodium Potassium 3.1 L D Chloride Carbon Dioxide BUN Creatinine Glucose POC Glucose 134 H 140 H Lactic Acid Calcium Phosphorus Magnesium Total Creatine Kinase Troponin T Total Protein Albumin Triglycerides LDL Cholesterol Direct HDL Cholesterol Arterial Blood Glucose Arterial Blood Ionized Calcium Urine pH Urine WBC (Auto) Vancomycin Trough Salicylates Acetaminophen Crossmatch 11/02/20 11/03/20 11/03/20 23:36 04:15 05:07 WBC RBC Hgb Hct MCV MCH MCHC RDW Plt Count Lymph % (Auto) Seg Neutrophils % Seg Neuts % (Manual) Lymphocytes % (Manual) Nucleated RBC % Seg Neutrophils # Seg Neutrophils # Man Lymphocytes # (Manual) Monocytes # (Manual) PT INR ABG pH POC ABG pCO2 POC ABG pO2 ABG pO2 ABG HCO3 ABG O2 Saturation ABG Base Excess ABG Hemoglobin ABG Oxyhemoglobin ABG Sodium ABG Potassium ABG Chloride ABG Glucose Oxyhemoglobin Carboxyhemoglobin Sodium Potassium 3.0 L Chloride 111.8 H Carbon Dioxide BUN 24 H Creatinine 0.3 L Glucose 141 H POC Glucose 127 H 156 H Lactic Acid Calcium 5.8 L* Phosphorus Magnesium 1.60 L Total Creatine Kinase Troponin T Total Protein Albumin Triglycerides LDL Cholesterol Direct HDL Cholesterol Arterial Blood Glucose Arterial Blood Ionized Calcium Urine pH Urine WBC (Auto) Vancomycin Trough Salicylates Acetaminophen Crossmatch 11/03/20 11/03/20 11/04/20 11:14 17:31 00:17 WBC RBC Hgb Hct MCV MCH MCHC RDW Plt Count Lymph % (Auto) Seg Neutrophils % Seg Neuts % (Manual) Lymphocytes % (Manual) Nucleated RBC % Seg Neutrophils # Seg Neutrophils # Man Lymphocytes # (Manual) Monocytes # (Manual) PT INR ABG pH POC ABG pCO2 POC ABG pO2 ABG pO2 ABG HCO3 ABG O2 Saturation ABG Base Excess ABG Hemoglobin ABG Oxyhemoglobin ABG Sodium ABG Potassium ABG Chloride ABG Glucose Oxyhemoglobin Carboxyhemoglobin Sodium Potassium Chloride Carbon Dioxide BUN Creatinine Glucose POC Glucose 137 H 151 H 156 H Lactic Acid Calcium Phosphorus Magnesium Total Creatine Kinase Troponin T Total Protein Albumin Triglycerides LDL Cholesterol Direct HDL Cholesterol Arterial Blood Glucose Arterial Blood Ionized Calcium Urine pH Urine WBC (Auto) Vancomycin Trough Salicylates Acetaminophen Crossmatch 11/04/20 11/04/20 11/04/20 05:34 05:34 11:16 WBC 21.9 H RBC 2.67 L Hgb 8.2 L Hct 24.8 L MCV MCH MCHC RDW 15.6 H Plt Count 48 L Lymph % (Auto) Seg Neutrophils % Seg Neuts % (Manual) Lymphocytes % (Manual) Nucleated RBC % Seg Neutrophils # Seg Neutrophils # Man Lymphocytes # (Manual) Monocytes # (Manual) PT INR ABG pH POC ABG pCO2 POC ABG pO2 ABG pO2 ABG HCO3 ABG O2 Saturation ABG Base Excess ABG Hemoglobin ABG Oxyhemoglobin ABG Sodium ABG Potassium ABG Chloride ABG Glucose Oxyhemoglobin Carboxyhemoglobin Sodium 146 H Potassium Chloride 114.6 H Carbon Dioxide BUN 29 H Creatinine 0.3 L Glucose 173 H POC Glucose 156 H Lactic Acid Calcium 5.7 L* Phosphorus Magnesium Total Creatine Kinase Troponin T Total Protein Albumin Triglycerides LDL Cholesterol Direct HDL Cholesterol Arterial Blood Glucose Arterial Blood Ionized Calcium Urine pH Urine WBC (Auto) Vancomycin Trough Salicylates Acetaminophen Crossmatch 11/04/20 11/04/20 11/04/20 11:42 17:18 23:12 WBC RBC Hgb Hct MCV MCH MCHC RDW Plt Count Lymph % (Auto) Seg Neutrophils % Seg Neuts % (Manual) Lymphocytes % (Manual) Nucleated RBC % Seg Neutrophils # Seg Neutrophils # Man Lymphocytes # (Manual) Monocytes # (Manual) PT INR ABG pH 7.525 H POC ABG pCO2 28.9 L POC ABG pO2 64.3 L ABG pO2 ABG HCO3 ABG O2 Saturation ABG Base Excess ABG Hemoglobin 8.2 L ABG Oxyhemoglobin ABG Sodium ABG Potassium 3.3 L ABG Chloride 115.0 H ABG Glucose 165 H Oxyhemoglobin Carboxyhemoglobin Sodium Potassium Chloride Carbon Dioxide BUN Creatinine Glucose POC Glucose 144 H 155 H Lactic Acid Calcium Phosphorus Magnesium Total Creatine Kinase Troponin T Total Protein Albumin Triglycerides LDL Cholesterol Direct HDL Cholesterol Arterial Blood Glucose 165 H Arterial Blood Ionized Calcium 4.0 L Urine pH Urine WBC (Auto) Vancomycin Trough Salicylates Acetaminophen Crossmatch 11/05/20 11/05/20 11/05/20 04:48 04:48 05:57 WBC 17.4 H RBC 2.49 L Hgb 7.8 L Hct 23.5 L MCV MCH MCHC RDW 16.0 H Plt Count 69 L Lymph % (Auto) Seg Neutrophils % Seg Neuts % (Manual) Lymphocytes % (Manual) Nucleated RBC % Seg Neutrophils # Seg Neutrophils # Man Lymphocytes # (Manual) Monocytes # (Manual) PT INR ABG pH POC ABG pCO2 POC ABG pO2 ABG pO2 ABG HCO3 ABG O2 Saturation ABG Base Excess ABG Hemoglobin ABG Oxyhemoglobin ABG Sodium ABG Potassium ABG Chloride ABG Glucose Oxyhemoglobin Carboxyhemoglobin Sodium 147 H Potassium 3.5 L Chloride 115.4 H Carbon Dioxide BUN 34 H Creatinine 0.3 L Glucose 154 H POC Glucose 146 H Lactic Acid Calcium 6.1 L Phosphorus 2.00 L Magnesium Total Creatine Kinase Troponin T Total Protein Albumin Triglycerides LDL Cholesterol Direct HDL Cholesterol Arterial Blood Glucose Arterial Blood Ionized Calcium Urine pH Urine WBC (Auto) Vancomycin Trough Salicylates Acetaminophen Crossmatch 11/05/20 11/05/20 11/05/20 11:33 17:52 23:37 WBC RBC Hgb Hct MCV MCH MCHC RDW Plt Count Lymph % (Auto) Seg Neutrophils % Seg Neuts % (Manual) Lymphocytes % (Manual) Nucleated RBC % Seg Neutrophils # Seg Neutrophils # Man Lymphocytes # (Manual) Monocytes # (Manual) PT INR ABG pH POC ABG pCO2 POC ABG pO2 ABG pO2 ABG HCO3 ABG O2 Saturation ABG Base Excess ABG Hemoglobin ABG Oxyhemoglobin ABG Sodium ABG Potassium ABG Chloride ABG Glucose Oxyhemoglobin Carboxyhemoglobin Sodium Potassium Chloride Carbon Dioxide BUN Creatinine Glucose POC Glucose 144 H 136 H 151 H Lactic Acid Calcium Phosphorus Magnesium Total Creatine Kinase Troponin T Total Protein Albumin Triglycerides LDL Cholesterol Direct HDL Cholesterol Arterial Blood Glucose Arterial Blood Ionized Calcium Urine pH Urine WBC (Auto) Vancomycin Trough Salicylates Acetaminophen Crossmatch 11/06/20 11/06/20 11/06/20 05:36 06:45 06:45 WBC 15.0 H RBC 2.33 L Hgb 7.2 L Hct 22.1 L MCV 95 H MCH MCHC RDW 16.2 H Plt Count 103 L Lymph % (Auto) Seg Neutrophils % Seg Neuts % (Manual) Lymphocytes % (Manual) Nucleated RBC % Seg Neutrophils # Seg Neutrophils # Man Lymphocytes # (Manual) Monocytes # (Manual) PT INR ABG pH POC ABG pCO2 POC ABG pO2 ABG pO2 ABG HCO3 ABG O2 Saturation ABG Base Excess ABG Hemoglobin ABG Oxyhemoglobin ABG Sodium ABG Potassium ABG Chloride ABG Glucose Oxyhemoglobin Carboxyhemoglobin Sodium 148 H Potassium Chloride 118.2 H Carbon Dioxide BUN 32 H Creatinine 0.4 L Glucose 153 H POC Glucose 140 H Lactic Acid Calcium 6.4 L Phosphorus 0.90 L* D Magnesium Total Creatine Kinase Troponin T Total Protein 5.0 L Albumin 1.4 L Triglycerides LDL Cholesterol Direct HDL Cholesterol Arterial Blood Glucose Arterial Blood Ionized Calcium Urine pH Urine WBC (Auto) Vancomycin Trough Salicylates Acetaminophen Crossmatch 11/06/20 11/06/20 11/06/20 11:32 17:37 23:19 WBC RBC Hgb Hct MCV MCH MCHC RDW Plt Count Lymph % (Auto) Seg Neutrophils % Seg Neuts % (Manual) Lymphocytes % (Manual) Nucleated RBC % Seg Neutrophils # Seg Neutrophils # Man Lymphocytes # (Manual) Monocytes # (Manual) PT INR ABG pH POC ABG pCO2 POC ABG pO2 ABG pO2 ABG HCO3 ABG O2 Saturation ABG Base Excess ABG Hemoglobin ABG Oxyhemoglobin ABG Sodium ABG Potassium ABG Chloride ABG Glucose Oxyhemoglobin Carboxyhemoglobin Sodium Potassium Chloride Carbon Dioxide BUN Creatinine Glucose POC Glucose 132 H 133 H 145 H Lactic Acid Calcium Phosphorus Magnesium Total Creatine Kinase Troponin T Total Protein Albumin Triglycerides LDL Cholesterol Direct HDL Cholesterol Arterial Blood Glucose Arterial Blood Ionized Calcium Urine pH Urine WBC (Auto) Vancomycin Trough Salicylates Acetaminophen Crossmatch 11/07/20 11/07/20 11/07/20 12:55 16:45 16:45 WBC 12.0 H RBC 3.63 L Hgb 11.4 L D Hct MCV 104 H MCH MCHC 30 L RDW 18.0 H Plt Count 133 L Lymph % (Auto) Seg Neutrophils % Seg Neuts % (Manual) Lymphocytes % (Manual) Nucleated RBC % Seg Neutrophils # Seg Neutrophils # Man Lymphocytes # (Manual) Monocytes # (Manual) PT INR ABG pH POC ABG pCO2 POC ABG pO2 ABG pO2 ABG HCO3 ABG O2 Saturation ABG Base Excess ABG Hemoglobin 7.7 L ABG Oxyhemoglobin ABG Sodium ABG Potassium ABG Chloride ABG Glucose Oxyhemoglobin 94.9 L Carboxyhemoglobin Sodium 149 H Potassium Chloride 119.8 H Carbon Dioxide BUN 31 H Creatinine 0.4 L Glucose 130 H POC Glucose Lactic Acid Calcium 6.5 L Phosphorus Magnesium Total Creatine Kinase Troponin T Total Protein Albumin Triglycerides LDL Cholesterol Direct HDL Cholesterol Arterial Blood Glucose Arterial Blood Ionized Calcium Urine pH Urine WBC (Auto) Vancomycin Trough Salicylates Acetaminophen Crossmatch 11/07/20 11/08/20 11/08/20 17:23 00:12 06:11 WBC RBC Hgb Hct MCV MCH MCHC RDW Plt Count Lymph % (Auto) Seg Neutrophils % Seg Neuts % (Manual) Lymphocytes % (Manual) Nucleated RBC % Seg Neutrophils # Seg Neutrophils # Man Lymphocytes # (Manual) Monocytes # (Manual) PT INR ABG pH POC ABG pCO2 POC ABG pO2 ABG pO2 ABG HCO3 ABG O2 Saturation ABG Base Excess ABG Hemoglobin ABG Oxyhemoglobin ABG Sodium ABG Potassium ABG Chloride ABG Glucose Oxyhemoglobin Carboxyhemoglobin Sodium Potassium Chloride Carbon Dioxide BUN Creatinine Glucose POC Glucose 115 H 129 H 109 H Lactic Acid Calcium Phosphorus Magnesium Total Creatine Kinase Troponin T Total Protein Albumin Triglycerides LDL Cholesterol Direct HDL Cholesterol Arterial Blood Glucose Arterial Blood Ionized Calcium Urine pH Urine WBC (Auto) Vancomycin Trough Salicylates Acetaminophen Crossmatch 11/08/20 11/08/20 11/08/20 17:36 23:49 23:58 WBC RBC Hgb Hct MCV MCH MCHC RDW Plt Count Lymph % (Auto) Seg Neutrophils % Seg Neuts % (Manual) Lymphocytes % (Manual) Nucleated RBC % Seg Neutrophils # Seg Neutrophils # Man Lymphocytes # (Manual) Monocytes # (Manual) PT INR ABG pH POC ABG pCO2 POC ABG pO2 ABG pO2 ABG HCO3 ABG O2 Saturation ABG Base Excess ABG Hemoglobin ABG Oxyhemoglobin ABG Sodium ABG Potassium ABG Chloride ABG Glucose Oxyhemoglobin Carboxyhemoglobin Sodium Potassium Chloride Carbon Dioxide BUN Creatinine Glucose 138 H POC Glucose 38 L 36 L Lactic Acid Calcium Phosphorus Magnesium Total Creatine Kinase Troponin T Total Protein Albumin Triglycerides LDL Cholesterol Direct HDL Cholesterol Arterial Blood Glucose Arterial Blood Ionized Calcium Urine pH Urine WBC (Auto) Vancomycin Trough Salicylates Acetaminophen Crossmatch 11/09/20 11/09/20 11/09/20 05:33 06:00 06:00 WBC 13.1 H RBC 2.35 L Hgb 7.6 L D Hct 22.9 L D MCV 97 H MCH MCHC RDW 16.8 H Plt Count Lymph % (Auto) 9.1 L Seg Neutrophils % 84.8 H Seg Neuts % (Manual) Lymphocytes % (Manual) Nucleated RBC % Seg Neutrophils # 11.1 H Seg Neutrophils # Man Lymphocytes # (Manual) Monocytes # (Manual) PT INR ABG pH POC ABG pCO2 POC ABG pO2 ABG pO2 ABG HCO3 ABG O2 Saturation ABG Base Excess ABG Hemoglobin ABG Oxyhemoglobin ABG Sodium ABG Potassium ABG Chloride ABG Glucose Oxyhemoglobin Carboxyhemoglobin Sodium 150 H Potassium 3.4 L D Chloride 119.2 H Carbon Dioxide BUN 30 H Creatinine 0.4 L Glucose 137 H POC Glucose 58 L Lactic Acid Calcium 7.2 L Phosphorus Magnesium Total Creatine Kinase Troponin T Total Protein Albumin Triglycerides LDL Cholesterol Direct HDL Cholesterol Arterial Blood Glucose Arterial Blood Ionized Calcium Urine pH Urine WBC (Auto) Vancomycin Trough Salicylates Acetaminophen Crossmatch 11/09/20 11/09/20 11/10/20 06:08 22:16 13:46 WBC 16.1 H RBC 2.52 L Hgb 8.1 L Hct 25.2 L MCV 100 H MCH MCHC RDW 18.2 H Plt Count Lymph % (Auto) Seg Neutrophils % Seg Neuts % (Manual) 90.0 H Lymphocytes % (Manual) 3.0 L Nucleated RBC % Seg Neutrophils # Seg Neutrophils # Man 14.5 H Lymphocytes # (Manual) 0.5 L Monocytes # (Manual) 1.1 H PT INR ABG pH POC ABG pCO2 POC ABG pO2 ABG pO2 ABG HCO3 ABG O2 Saturation ABG Base Excess ABG Hemoglobin ABG Oxyhemoglobin ABG Sodium ABG Potassium ABG Chloride ABG Glucose Oxyhemoglobin Carboxyhemoglobin Sodium Potassium Chloride Carbon Dioxide BUN Creatinine Glucose POC Glucose 122 H 120 H Lactic Acid Calcium Phosphorus Magnesium Total Creatine Kinase Troponin T Total Protein Albumin Triglycerides LDL Cholesterol Direct HDL Cholesterol Arterial Blood Glucose Arterial Blood Ionized Calcium Urine pH Urine WBC (Auto) Vancomycin Trough Salicylates Acetaminophen Crossmatch 11/10/20 11/10/20 11/11/20 13:46 15:59 11:43 WBC RBC Hgb Hct MCV MCH MCHC RDW Plt Count Lymph % (Auto) Seg Neutrophils % Seg Neuts % (Manual) Lymphocytes % (Manual) Nucleated RBC % Seg Neutrophils # Seg Neutrophils # Man Lymphocytes # (Manual) Monocytes # (Manual) PT INR ABG pH POC ABG pCO2 POC ABG pO2 ABG pO2 ABG HCO3 ABG O2 Saturation ABG Base Excess ABG Hemoglobin ABG Oxyhemoglobin ABG Sodium ABG Potassium ABG Chloride ABG Glucose Oxyhemoglobin Carboxyhemoglobin Sodium 153 H Potassium Chloride 120.6 H Carbon Dioxide BUN 27 H Creatinine 0.3 L Glucose 112 H POC Glucose 40 L 124 H Lactic Acid Calcium 6.8 L Phosphorus Magnesium Total Creatine Kinase Troponin T Total Protein Albumin Triglycerides LDL Cholesterol Direct HDL Cholesterol Arterial Blood Glucose Arterial Blood Ionized Calcium Urine pH Urine WBC (Auto) Vancomycin Trough Salicylates Acetaminophen Crossmatch 11/11/20 11/11/20 11/11/20 14:38 14:38 14:38 WBC 13.8 H RBC 2.43 L Hgb 7.6 L Hct 24.0 L MCV 99 H MCH MCHC RDW 18.0 H Plt Count Lymph % (Auto) Seg Neutrophils % Seg Neuts % (Manual) Lymphocytes % (Manual) Nucleated RBC % Seg Neutrophils # Seg Neutrophils # Man Lymphocytes # (Manual) Monocytes # (Manual) PT 15.0 H INR 1.18 H ABG pH POC ABG pCO2 POC ABG pO2 ABG pO2 ABG HCO3 ABG O2 Saturation ABG Base Excess ABG Hemoglobin ABG Oxyhemoglobin ABG Sodium ABG Potassium ABG Chloride ABG Glucose Oxyhemoglobin Carboxyhemoglobin Sodium 154 H Potassium 3.1 L D Chloride 122.1 H Carbon Dioxide BUN 26 H Creatinine 0.4 L Glucose 140 H POC Glucose Lactic Acid Calcium 7.3 L Phosphorus Magnesium Total Creatine Kinase Troponin T Total Protein Albumin Triglycerides LDL Cholesterol Direct HDL Cholesterol Arterial Blood Glucose Arterial Blood Ionized Calcium Urine pH Urine WBC (Auto) Vancomycin Trough Salicylates Acetaminophen Crossmatch 11/11/20 11/11/20 11/12/20 18:39 18:42 00:03 WBC RBC Hgb Hct MCV MCH MCHC RDW Plt Count Lymph % (Auto) Seg Neutrophils % Seg Neuts % (Manual) Lymphocytes % (Manual) Nucleated RBC % Seg Neutrophils # Seg Neutrophils # Man Lymphocytes # (Manual) Monocytes # (Manual) PT INR ABG pH POC ABG pCO2 POC ABG pO2 ABG pO2 ABG HCO3 ABG O2 Saturation ABG Base Excess ABG Hemoglobin ABG Oxyhemoglobin ABG Sodium ABG Potassium ABG Chloride ABG Glucose Oxyhemoglobin Carboxyhemoglobin Sodium Potassium Chloride Carbon Dioxide BUN Creatinine Glucose POC Glucose 45 L 66 L 108 H Lactic Acid Calcium Phosphorus Magnesium Total Creatine Kinase Troponin T Total Protein Albumin Triglycerides LDL Cholesterol Direct HDL Cholesterol Arterial Blood Glucose Arterial Blood Ionized Calcium Urine pH Urine WBC (Auto) Vancomycin Trough Salicylates Acetaminophen Crossmatch 11/12/20 11/12/20 11/12/20 05:44 08:33 08:33 WBC 13.4 H RBC 2.35 L Hgb 7.5 L Hct 23.7 L MCV 101 H MCH MCHC RDW 19.7 H Plt Count Lymph % (Auto) Seg Neutrophils % Seg Neuts % (Manual) Lymphocytes % (Manual) Nucleated RBC % Seg Neutrophils # Seg Neutrophils # Man Lymphocytes # (Manual) Monocytes # (Manual) PT INR ABG pH POC ABG pCO2 POC ABG pO2 ABG pO2 ABG HCO3 ABG O2 Saturation ABG Base Excess ABG Hemoglobin ABG Oxyhemoglobin ABG Sodium ABG Potassium ABG Chloride ABG Glucose Oxyhemoglobin Carboxyhemoglobin Sodium 154 H Potassium 2.9 L* Chloride 121.4 H Carbon Dioxide BUN 26 H Creatinine 0.4 L Glucose 153 H POC Glucose 114 H Lactic Acid Calcium 7.3 L Phosphorus Magnesium Total Creatine Kinase Troponin T Total Protein Albumin Triglycerides LDL Cholesterol Direct HDL Cholesterol Arterial Blood Glucose Arterial Blood Ionized Calcium Urine pH Urine WBC (Auto) Vancomycin Trough Salicylates Acetaminophen Crossmatch 11/12/20 11/12/20 11/13/20 11:38 17:17 05:28 WBC RBC Hgb Hct MCV MCH MCHC RDW Plt Count Lymph % (Auto) Seg Neutrophils % Seg Neuts % (Manual) Lymphocytes % (Manual) Nucleated RBC % Seg Neutrophils # Seg Neutrophils # Man Lymphocytes # (Manual) Monocytes # (Manual) PT INR ABG pH POC ABG pCO2 51.4 H POC ABG pO2 41.7 L ABG pO2 ABG HCO3 ABG O2 Saturation ABG Base Excess ABG Hemoglobin 9.1 L ABG Oxyhemoglobin 72.2 L ABG Sodium 151.1 H ABG Potassium 3.2 L ABG Chloride 122.0 H ABG Glucose 191 H Oxyhemoglobin Carboxyhemoglobin Sodium Potassium Chloride Carbon Dioxide BUN Creatinine Glucose POC Glucose 125 H 127 H Lactic Acid Calcium Phosphorus Magnesium Total Creatine Kinase Troponin T Total Protein Albumin Triglycerides LDL Cholesterol Direct HDL Cholesterol Arterial Blood Glucose 191 H Arterial Blood Ionized Calcium Urine pH Urine WBC (Auto) Vancomycin Trough Salicylates Acetaminophen Crossmatch 11/13/20 11/13/20 11/13/20 10:46 23:15 23:15 WBC 12.2 H RBC 2.41 L Hgb 7.7 L Hct 24.5 L MCV 102 H MCH MCHC RDW 23.0 H Plt Count Lymph % (Auto) Seg Neutrophils % Seg Neuts % (Manual) Lymphocytes % (Manual) Nucleated RBC % Seg Neutrophils # Seg Neutrophils # Man Lymphocytes # (Manual) Monocytes # (Manual) PT INR ABG pH POC ABG pCO2 POC ABG pO2 ABG pO2 ABG HCO3 ABG O2 Saturation ABG Base Excess ABG Hemoglobin ABG Oxyhemoglobin ABG Sodium ABG Potassium ABG Chloride ABG Glucose Oxyhemoglobin Carboxyhemoglobin Sodium Potassium Chloride Carbon Dioxide BUN Creatinine Glucose POC Glucose 153 H Lactic Acid Calcium Phosphorus Magnesium Total Creatine Kinase Troponin T 0.123 H* Total Protein Albumin Triglycerides LDL Cholesterol Direct HDL Cholesterol Arterial Blood Glucose Arterial Blood Ionized Calcium Urine pH Urine WBC (Auto) Vancomycin Trough Salicylates Acetaminophen Crossmatch 11/13/20 11/13/20 11/14/20 23:15 Unknown 05:26 WBC RBC Hgb Hct MCV MCH MCHC RDW Plt Count Lymph % (Auto) Seg Neutrophils % Seg Neuts % (Manual) Lymphocytes % (Manual) Nucleated RBC % Seg Neutrophils # Seg Neutrophils # Man Lymphocytes # (Manual) Monocytes # (Manual) PT INR ABG pH 7.295 L POC ABG pCO2 56.0 H POC ABG pO2 49.1 L ABG pO2 ABG HCO3 ABG O2 Saturation ABG Base Excess ABG Hemoglobin 8.3 L ABG Oxyhemoglobin 77.1 L ABG Sodium 150.5 H ABG Potassium 3.3 L ABG Chloride 121.0 H ABG Glucose 187 H Oxyhemoglobin Carboxyhemoglobin Sodium 152 H Potassium 3.3 L Chloride 117.8 H Carbon Dioxide BUN 25 H Creatinine 0.4 L Glucose 123 H POC Glucose 46 L Lactic Acid Calcium 7.5 L Phosphorus Magnesium Total Creatine Kinase Troponin T Total Protein Albumin Triglycerides LDL Cholesterol Direct HDL Cholesterol Arterial Blood Glucose 187 H Arterial Blood Ionized Calcium Urine pH Urine WBC (Auto) Vancomycin Trough Salicylates Acetaminophen Crossmatch 11/14/20 11/14/20 11/14/20 06:26 22:26 22:26 WBC RBC 2.75 L Hgb 9.0 L Hct 27.8 L MCV 101 H MCH 33 H MCHC RDW 22.8 H Plt Count Lymph % (Auto) Seg Neutrophils % Seg Neuts % (Manual) Lymphocytes % (Manual) Nucleated RBC % Seg Neutrophils # Seg Neutrophils # Man Lymphocytes # (Manual) Monocytes # (Manual) PT INR ABG pH POC ABG pCO2 POC ABG pO2 ABG pO2 ABG HCO3 ABG O2 Saturation ABG Base Excess ABG Hemoglobin ABG Oxyhemoglobin ABG Sodium ABG Potassium ABG Chloride ABG Glucose Oxyhemoglobin Carboxyhemoglobin Sodium 147 H Potassium 3.3 L Chloride 114.3 H Carbon Dioxide BUN 23 H Creatinine 0.3 L Glucose 209 H POC Glucose 135 H Lactic Acid Calcium 7.4 L Phosphorus Magnesium Total Creatine Kinase Troponin T Total Protein Albumin Triglycerides LDL Cholesterol Direct HDL Cholesterol Arterial Blood Glucose Arterial Blood Ionized Calcium Urine pH Urine WBC (Auto) Vancomycin Trough Salicylates Acetaminophen Crossmatch 11/14/20 11/15/20 11/15/20 23:22 04:28 05:57 WBC RBC Hgb Hct MCV MCH MCHC RDW Plt Count Lymph % (Auto) Seg Neutrophils % Seg Neuts % (Manual) Lymphocytes % (Manual) Nucleated RBC % Seg Neutrophils # Seg Neutrophils # Man Lymphocytes # (Manual) Monocytes # (Manual) PT INR ABG pH POC ABG pCO2 POC ABG pO2 ABG pO2 ABG HCO3 ABG O2 Saturation ABG Base Excess ABG Hemoglobin ABG Oxyhemoglobin ABG Sodium ABG Potassium ABG Chloride ABG Glucose Oxyhemoglobin Carboxyhemoglobin Sodium 152 H Potassium Chloride 118.1 H Carbon Dioxide BUN 22 H Creatinine 0.3 L Glucose 190 H POC Glucose 136 H 151 H Lactic Acid Calcium 7.5 L Phosphorus Magnesium Total Creatine Kinase Troponin T Total Protein Albumin Triglycerides LDL Cholesterol Direct HDL Cholesterol Arterial Blood Glucose Arterial Blood Ionized Calcium Urine pH Urine WBC (Auto) Vancomycin Trough Salicylates Acetaminophen Crossmatch 11/15/20 11/15/20 11/15/20 11:40 16:56 21:53 WBC RBC Hgb Hct MCV MCH MCHC RDW Plt Count Lymph % (Auto) Seg Neutrophils % Seg Neuts % (Manual) Lymphocytes % (Manual) Nucleated RBC % Seg Neutrophils # Seg Neutrophils # Man Lymphocytes # (Manual) Monocytes # (Manual) PT INR ABG pH 7.457 H POC ABG pCO2 POC ABG pO2 ABG pO2 48.3 L ABG HCO3 26.1 H ABG O2 Saturation 82.9 L ABG Base Excess ABG Hemoglobin 9.7 L ABG Oxyhemoglobin ABG Sodium ABG Potassium ABG Chloride ABG Glucose Oxyhemoglobin 81.0 L Carboxyhemoglobin Sodium Potassium Chloride Carbon Dioxide BUN Creatinine Glucose POC Glucose 129 H 115 H Lactic Acid Calcium Phosphorus Magnesium Total Creatine Kinase Troponin T Total Protein Albumin Triglycerides LDL Cholesterol Direct HDL Cholesterol Arterial Blood Glucose Arterial Blood Ionized Calcium Urine pH Urine WBC (Auto) Vancomycin Trough Salicylates Acetaminophen Crossmatch 11/15/20 11/16/20 11/16/20 23:12 00:07 00:09 WBC RBC Hgb Hct MCV MCH MCHC RDW Plt Count Lymph % (Auto) Seg Neutrophils % Seg Neuts % (Manual) Lymphocytes % (Manual) Nucleated RBC % Seg Neutrophils # Seg Neutrophils # Man Lymphocytes # (Manual) Monocytes # (Manual) PT INR ABG pH POC ABG pCO2 POC ABG pO2 ABG pO2 95.1 H ABG HCO3 26.6 H ABG O2 Saturation ABG Base Excess ABG Hemoglobin 7.5 L ABG Oxyhemoglobin ABG Sodium ABG Potassium ABG Chloride ABG Glucose Oxyhemoglobin Carboxyhemoglobin Sodium Potassium Chloride Carbon Dioxide BUN Creatinine Glucose POC Glucose 13 L 153 H Lactic Acid Calcium Phosphorus Magnesium Total Creatine Kinase Troponin T Total Protein Albumin Triglycerides LDL Cholesterol Direct HDL Cholesterol Arterial Blood Glucose Arterial Blood Ionized Calcium Urine pH Urine WBC (Auto) Vancomycin Trough Salicylates Acetaminophen Crossmatch 11/16/20 11/16/20 11/16/20 03:43 04:00 04:00 WBC RBC 2.33 L Hgb 7.7 L Hct 24.5 L MCV 105 H MCH 33 H MCHC 31 L RDW 22.9 H Plt Count Lymph % (Auto) Seg Neutrophils % Seg Neuts % (Manual) Lymphocytes % (Manual) Nucleated RBC % Seg Neutrophils # Seg Neutrophils # Man Lymphocytes # (Manual) Monocytes # (Manual) PT INR ABG pH 7.348 L POC ABG pCO2 POC ABG pO2 ABG pO2 91.6 H ABG HCO3 26.3 H ABG O2 Saturation ABG Base Excess ABG Hemoglobin 7.3 L ABG Oxyhemoglobin ABG Sodium ABG Potassium ABG Chloride ABG Glucose Oxyhemoglobin Carboxyhemoglobin Sodium 148 H Potassium 3.5 L Chloride 115.9 H Carbon Dioxide BUN Creatinine 0.4 L Glucose 195 H POC Glucose Lactic Acid Calcium 7.6 L Phosphorus Magnesium Total Creatine Kinase Troponin T Total Protein Albumin Triglycerides LDL Cholesterol Direct HDL Cholesterol Arterial Blood Glucose Arterial Blood Ionized Calcium Urine pH Urine WBC (Auto) Vancomycin Trough Salicylates Acetaminophen Crossmatch 11/16/20 11/16/20 11/16/20 05:16 07:40 12:10 WBC RBC Hgb Hct MCV MCH MCHC RDW Plt Count Lymph % (Auto) Seg Neutrophils % Seg Neuts % (Manual) Lymphocytes % (Manual) Nucleated RBC % Seg Neutrophils # Seg Neutrophils # Man Lymphocytes # (Manual) Monocytes # (Manual) PT INR ABG pH POC ABG pCO2 POC ABG pO2 ABG pO2 ABG HCO3 ABG O2 Saturation ABG Base Excess ABG Hemoglobin ABG Oxyhemoglobin ABG Sodium ABG Potassium ABG Chloride ABG Glucose Oxyhemoglobin Carboxyhemoglobin Sodium Potassium Chloride Carbon Dioxide BUN Creatinine Glucose POC Glucose 61 L 122 H 140 H Lactic Acid Calcium Phosphorus Magnesium Total Creatine Kinase Troponin T Total Protein Albumin Triglycerides LDL Cholesterol Direct HDL Cholesterol Arterial Blood Glucose Arterial Blood Ionized Calcium Urine pH Urine WBC (Auto) Vancomycin Trough Salicylates Acetaminophen Crossmatch 11/16/20 11/16/20 11/17/20 17:14 23:40 04:30 WBC RBC Hgb Hct MCV MCH MCHC RDW Plt Count Lymph % (Auto) Seg Neutrophils % Seg Neuts % (Manual) Lymphocytes % (Manual) Nucleated RBC % Seg Neutrophils # Seg Neutrophils # Man Lymphocytes # (Manual) Monocytes # (Manual) PT INR ABG pH 7.470 H POC ABG pCO2 POC ABG pO2 75.4 L ABG pO2 ABG HCO3 ABG O2 Saturation ABG Base Excess ABG Hemoglobin 7 L ABG Oxyhemoglobin ABG Sodium ABG Potassium ABG Chloride 116.0 H ABG Glucose 161 H Oxyhemoglobin Carboxyhemoglobin Sodium Potassium Chloride Carbon Dioxide BUN Creatinine Glucose POC Glucose 139 H 151 H Lactic Acid Calcium Phosphorus Magnesium Total Creatine Kinase Troponin T Total Protein Albumin Triglycerides LDL Cholesterol Direct HDL Cholesterol Arterial Blood Glucose 161 H Arterial Blood Ionized Calcium Urine pH Urine WBC (Auto) Vancomycin Trough Salicylates Acetaminophen Crossmatch 11/17/20 11/17/20 11/17/20 09:50 09:50 11:10 WBC RBC 2.02 L Hgb 6.6 L Hct 20.2 L MCV 100 H MCH 33 H MCHC RDW 22.4 H Plt Count Lymph % (Auto) Seg Neutrophils % Seg Neuts % (Manual) Lymphocytes % (Manual) Nucleated RBC % Seg Neutrophils # Seg Neutrophils # Man Lymphocytes # (Manual) Monocytes # (Manual) PT INR ABG pH POC ABG pCO2 POC ABG pO2 ABG pO2 ABG HCO3 ABG O2 Saturation ABG Base Excess ABG Hemoglobin ABG Oxyhemoglobin ABG Sodium ABG Potassium ABG Chloride ABG Glucose Oxyhemoglobin Carboxyhemoglobin Sodium Potassium Chloride 111.8 H Carbon Dioxide BUN 23 H Creatinine 0.4 L Glucose 142 H POC Glucose Lactic Acid Calcium 7.3 L Phosphorus Magnesium Total Creatine Kinase Troponin T Total Protein Albumin Triglycerides LDL Cholesterol Direct HDL Cholesterol Arterial Blood Glucose Arterial Blood Ionized Calcium Urine pH Urine WBC (Auto) Vancomycin Trough Salicylates Acetaminophen Crossmatch See Detail 11/17/20 11/17/20 11/17/20 11:52 11:57 23:22 WBC RBC Hgb Hct MCV MCH MCHC RDW Plt Count Lymph % (Auto) Seg Neutrophils % Seg Neuts % (Manual) Lymphocytes % (Manual) Nucleated RBC % Seg Neutrophils # Seg Neutrophils # Man Lymphocytes # (Manual) Monocytes # (Manual) PT INR ABG pH POC ABG pCO2 POC ABG pO2 ABG pO2 ABG HCO3 ABG O2 Saturation ABG Base Excess ABG Hemoglobin ABG Oxyhemoglobin ABG Sodium ABG Potassium ABG Chloride ABG Glucose Oxyhemoglobin Carboxyhemoglobin Sodium Potassium Chloride Carbon Dioxide BUN Creatinine Glucose POC Glucose 42 L 114 H 63 L Lactic Acid Calcium Phosphorus Magnesium Total Creatine Kinase Troponin T Total Protein Albumin Triglycerides LDL Cholesterol Direct HDL Cholesterol Arterial Blood Glucose Arterial Blood Ionized Calcium Urine pH Urine WBC (Auto) Vancomycin Trough Salicylates Acetaminophen Crossmatch 11/17/20 11/18/20 11/18/20 23:27 04:06 04:45 WBC RBC 2.36 L Hgb 7.4 L Hct 23.4 L MCV 99 H MCH MCHC RDW 21.6 H Plt Count Lymph % (Auto) Seg Neutrophils % Seg Neuts % (Manual) Lymphocytes % (Manual) Nucleated RBC % Seg Neutrophils # Seg Neutrophils # Man Lymphocytes # (Manual) Monocytes # (Manual) PT INR ABG pH POC ABG pCO2 POC ABG pO2 67.7 L ABG pO2 ABG HCO3 ABG O2 Saturation ABG Base Excess ABG Hemoglobin 8.3 L ABG Oxyhemoglobin ABG Sodium ABG Potassium ABG Chloride 112.0 H ABG Glucose 143 H Oxyhemoglobin Carboxyhemoglobin Sodium Potassium Chloride Carbon Dioxide BUN Creatinine Glucose POC Glucose 124 H Lactic Acid Calcium Phosphorus Magnesium Total Creatine Kinase Troponin T Total Protein Albumin Triglycerides LDL Cholesterol Direct HDL Cholesterol Arterial Blood Glucose 143 H Arterial Blood Ionized Calcium 4.5 L Urine pH Urine WBC (Auto) Vancomycin Trough Salicylates Acetaminophen Crossmatch 11/18/20 11/18/20 11/18/20 04:45 05:56 23:46 WBC RBC Hgb Hct MCV MCH MCHC RDW Plt Count Lymph % (Auto) Seg Neutrophils % Seg Neuts % (Manual) Lymphocytes % (Manual) Nucleated RBC % Seg Neutrophils # Seg Neutrophils # Man Lymphocytes # (Manual) Monocytes # (Manual) PT INR ABG pH POC ABG pCO2 POC ABG pO2 ABG pO2 ABG HCO3 ABG O2 Saturation ABG Base Excess ABG Hemoglobin ABG Oxyhemoglobin ABG Sodium ABG Potassium ABG Chloride ABG Glucose Oxyhemoglobin Carboxyhemoglobin Sodium Potassium Chloride 107.9 H Carbon Dioxide BUN 23 H Creatinine 0.4 L Glucose 139 H POC Glucose 133 H 66 L Lactic Acid Calcium 7.6 L Phosphorus Magnesium Total Creatine Kinase Troponin T Total Protein Albumin Triglycerides LDL Cholesterol Direct HDL Cholesterol Arterial Blood Glucose Arterial Blood Ionized Calcium Urine pH Urine WBC (Auto) Vancomycin Trough Salicylates Acetaminophen Crossmatch 11/18/20 11/19/20 11/19/20 23:52 05:48 06:36 WBC RBC Hgb Hct MCV MCH MCHC RDW Plt Count Lymph % (Auto) Seg Neutrophils % Seg Neuts % (Manual) Lymphocytes % (Manual) Nucleated RBC % Seg Neutrophils # Seg Neutrophils # Man Lymphocytes # (Manual) Monocytes # (Manual) PT INR ABG pH POC ABG pCO2 POC ABG pO2 ABG pO2 ABG HCO3 ABG O2 Saturation ABG Base Excess ABG Hemoglobin ABG Oxyhemoglobin ABG Sodium ABG Potassium ABG Chloride ABG Glucose Oxyhemoglobin Carboxyhemoglobin Sodium Potassium Chloride Carbon Dioxide BUN 21 H Creatinine 0.4 L Glucose 119 H POC Glucose 118 H 108 H Lactic Acid Calcium 7.8 L Phosphorus Magnesium Total Creatine Kinase Troponin T Total Protein Albumin Triglycerides LDL Cholesterol Direct HDL Cholesterol Arterial Blood Glucose Arterial Blood Ionized Calcium Urine pH Urine WBC (Auto) Vancomycin Trough Salicylates Acetaminophen Crossmatch 11/19/20 11/19/20 11/19/20 06:36 06:36 18:15 WBC RBC 2.79 L Hgb 9.0 L Hct 27.8 L MCV 100 H MCH MCHC RDW 20.7 H Plt Count Lymph % (Auto) Seg Neutrophils % Seg Neuts % (Manual) Lymphocytes % (Manual) Nucleated RBC % Seg Neutrophils # Seg Neutrophils # Man Lymphocytes # (Manual) Monocytes # (Manual) PT INR 1.15 H ABG pH POC ABG pCO2 POC ABG pO2 ABG pO2 ABG HCO3 ABG O2 Saturation ABG Base Excess ABG Hemoglobin ABG Oxyhemoglobin ABG Sodium ABG Potassium ABG Chloride ABG Glucose Oxyhemoglobin Carboxyhemoglobin Sodium Potassium Chloride Carbon Dioxide BUN Creatinine Glucose POC Glucose 115 H Lactic Acid Calcium Phosphorus Magnesium Total Creatine Kinase Troponin T Total Protein Albumin Triglycerides LDL Cholesterol Direct HDL Cholesterol Arterial Blood Glucose Arterial Blood Ionized Calcium Urine pH Urine WBC (Auto) Vancomycin Trough Salicylates Acetaminophen Crossmatch 11/19/20 11/19/20 11/20/20 23:27 Unknown 04:56 WBC RBC Hgb Hct MCV MCH MCHC RDW Plt Count Lymph % (Auto) Seg Neutrophils % Seg Neuts % (Manual) Lymphocytes % (Manual) Nucleated RBC % Seg Neutrophils # Seg Neutrophils # Man Lymphocytes # (Manual) Monocytes # (Manual) PT INR ABG pH 7.457 H POC ABG pCO2 POC ABG pO2 57.4 L ABG pO2 72.4 L ABG HCO3 26.9 H ABG O2 Saturation ABG Base Excess ABG Hemoglobin 8.5 L 9.6 L ABG Oxyhemoglobin 90.1 L ABG Sodium ABG Potassium ABG Chloride 109.0 H ABG Glucose 142 H Oxyhemoglobin 94.1 L Carboxyhemoglobin Sodium Potassium Chloride Carbon Dioxide BUN Creatinine Glucose POC Glucose 129 H Lactic Acid Calcium Phosphorus Magnesium Total Creatine Kinase Troponin T Total Protein Albumin Triglycerides LDL Cholesterol Direct HDL Cholesterol Arterial Blood Glucose 142 H Arterial Blood Ionized Calcium Urine pH Urine WBC (Auto) Vancomycin Trough Salicylates Acetaminophen Crossmatch 11/20/20 11/20/20 11/20/20 05:07 05:45 05:45 WBC 11.7 H RBC 2.74 L Hgb 8.9 L Hct 26.3 L MCV 96 H MCH 33 H MCHC RDW 18.6 H Plt Count Lymph % (Auto) Seg Neutrophils % Seg Neuts % (Manual) Lymphocytes % (Manual) Nucleated RBC % Seg Neutrophils # Seg Neutrophils # Man Lymphocytes # (Manual) Monocytes # (Manual) PT INR ABG pH POC ABG pCO2 POC ABG pO2 ABG pO2 ABG HCO3 ABG O2 Saturation ABG Base Excess ABG Hemoglobin ABG Oxyhemoglobin ABG Sodium ABG Potassium ABG Chloride ABG Glucose Oxyhemoglobin Carboxyhemoglobin Sodium Potassium Chloride Carbon Dioxide 31 H BUN Creatinine 0.4 L Glucose 127 H POC Glucose 129 H Lactic Acid Calcium 8.0 L Phosphorus Magnesium Total Creatine Kinase Troponin T Total Protein Albumin Triglycerides LDL Cholesterol Direct HDL Cholesterol Arterial Blood Glucose Arterial Blood Ionized Calcium Urine pH Urine WBC (Auto) Vancomycin Trough Salicylates Acetaminophen Crossmatch 11/20/20 11/20/20 11/21/20 12:02 17:52 00:02 WBC RBC Hgb Hct MCV MCH MCHC RDW Plt Count Lymph % (Auto) Seg Neutrophils % Seg Neuts % (Manual) Lymphocytes % (Manual) Nucleated RBC % Seg Neutrophils # Seg Neutrophils # Man Lymphocytes # (Manual) Monocytes # (Manual) PT INR ABG pH POC ABG pCO2 POC ABG pO2 ABG pO2 ABG HCO3 ABG O2 Saturation ABG Base Excess ABG Hemoglobin ABG Oxyhemoglobin ABG Sodium ABG Potassium ABG Chloride ABG Glucose Oxyhemoglobin Carboxyhemoglobin Sodium Potassium Chloride Carbon Dioxide BUN Creatinine Glucose POC Glucose 134 H 115 H 116 H Lactic Acid Calcium Phosphorus Magnesium Total Creatine Kinase Troponin T Total Protein Albumin Triglycerides LDL Cholesterol Direct HDL Cholesterol Arterial Blood Glucose Arterial Blood Ionized Calcium Urine pH Urine WBC (Auto) Vancomycin Trough Salicylates Acetaminophen Crossmatch 11/21/20 11/21/20 11/21/20 03:23 04:00 05:14 WBC RBC Hgb Hct MCV MCH MCHC RDW Plt Count Lymph % (Auto) Seg Neutrophils % Seg Neuts % (Manual) Lymphocytes % (Manual) Nucleated RBC % Seg Neutrophils # Seg Neutrophils # Man Lymphocytes # (Manual) Monocytes # (Manual) PT INR ABG pH 7.479 H POC ABG pCO2 POC ABG pO2 73.7 L ABG pO2 ABG HCO3 ABG O2 Saturation ABG Base Excess ABG Hemoglobin 9.4 L ABG Oxyhemoglobin ABG Sodium ABG Potassium ABG Chloride 108.0 H ABG Glucose 135 H Oxyhemoglobin Carboxyhemoglobin Sodium Potassium Chloride Carbon Dioxide 34 H BUN Creatinine 0.4 L Glucose 125 H POC Glucose 116 H Lactic Acid Calcium 7.9 L Phosphorus Magnesium Total Creatine Kinase Troponin T Total Protein Albumin Triglycerides LDL Cholesterol Direct HDL Cholesterol Arterial Blood Glucose 135 H Arterial Blood Ionized Calcium 4.5 L Urine pH Urine WBC (Auto) Vancomycin Trough Salicylates Acetaminophen Crossmatch 11/22/20 11/22/20 11/22/20 04:00 04:00 05:34 WBC 12.2 H RBC 2.74 L Hgb 8.7 L Hct 27.4 L MCV 100 H MCH MCHC RDW 19.2 H Plt Count Lymph % (Auto) Seg Neutrophils % Seg Neuts % (Manual) Lymphocytes % (Manual) Nucleated RBC % Seg Neutrophils # Seg Neutrophils # Man Lymphocytes # (Manual) Monocytes # (Manual) PT INR ABG pH POC ABG pCO2 POC ABG pO2 ABG pO2 ABG HCO3 ABG O2 Saturation ABG Base Excess ABG Hemoglobin ABG Oxyhemoglobin ABG Sodium ABG Potassium ABG Chloride ABG Glucose Oxyhemoglobin Carboxyhemoglobin Sodium Potassium Chloride Carbon Dioxide BUN Creatinine 0.4 L Glucose POC Glucose 58 L Lactic Acid Calcium 7.7 L Phosphorus Magnesium Total Creatine Kinase Troponin T Total Protein Albumin Triglycerides LDL Cholesterol Direct HDL Cholesterol Arterial Blood Glucose Arterial Blood Ionized Calcium Urine pH Urine WBC (Auto) Vancomycin Trough Salicylates Acetaminophen Crossmatch 11/22/20 11/23/20 11/23/20 11:48 00:15 04:25 WBC RBC Hgb Hct MCV MCH MCHC RDW Plt Count Lymph % (Auto) Seg Neutrophils % Seg Neuts % (Manual) Lymphocytes % (Manual) Nucleated RBC % Seg Neutrophils # Seg Neutrophils # Man Lymphocytes # (Manual) Monocytes # (Manual) PT INR ABG pH 7.489 H POC ABG pCO2 POC ABG pO2 74.7 L ABG pO2 ABG HCO3 ABG O2 Saturation ABG Base Excess ABG Hemoglobin 9.6 L ABG Oxyhemoglobin ABG Sodium 135.6 L ABG Potassium ABG Chloride ABG Glucose 119 H Oxyhemoglobin Carboxyhemoglobin Sodium Potassium Chloride Carbon Dioxide BUN Creatinine Glucose POC Glucose 60 L 106 H Lactic Acid Calcium Phosphorus Magnesium Total Creatine Kinase Troponin T Total Protein Albumin Triglycerides LDL Cholesterol Direct HDL Cholesterol Arterial Blood Glucose 119 H Arterial Blood Ionized Calcium 4.4 L Urine pH Urine WBC (Auto) Vancomycin Trough Salicylates Acetaminophen Crossmatch 11/23/20 11/23/20 11/23/20 05:27 10:23 10:23 WBC 11.3 H RBC 2.58 L Hgb 8.4 L Hct 24.7 L MCV 96 H MCH MCHC RDW 18.2 H Plt Count Lymph % (Auto) Seg Neutrophils % Seg Neuts % (Manual) 94.0 H Lymphocytes % (Manual) 5.0 L Nucleated RBC % Seg Neutrophils # Seg Neutrophils # Man 10.6 H Lymphocytes # (Manual) 0.6 L Monocytes # (Manual) PT INR ABG pH POC ABG pCO2 POC ABG pO2 ABG pO2 ABG HCO3 ABG O2 Saturation ABG Base Excess ABG Hemoglobin ABG Oxyhemoglobin ABG Sodium ABG Potassium ABG Chloride ABG Glucose Oxyhemoglobin Carboxyhemoglobin Sodium Potassium Chloride Carbon Dioxide BUN Creatinine 0.4 L Glucose 101 H POC Glucose 121 H Lactic Acid Calcium 7.2 L Phosphorus Magnesium Total Creatine Kinase Troponin T Total Protein Albumin Triglycerides LDL Cholesterol Direct HDL Cholesterol Arterial Blood Glucose Arterial Blood Ionized Calcium Urine pH Urine WBC (Auto) Vancomycin Trough Salicylates Acetaminophen Crossmatch 11/23/20 11/23/20 11/24/20 11:53 23:19 05:31 WBC RBC Hgb Hct MCV MCH MCHC RDW Plt Count Lymph % (Auto) Seg Neutrophils % Seg Neuts % (Manual) Lymphocytes % (Manual) Nucleated RBC % Seg Neutrophils # Seg Neutrophils # Man Lymphocytes # (Manual) Monocytes # (Manual) PT INR ABG pH POC ABG pCO2 POC ABG pO2 ABG pO2 ABG HCO3 ABG O2 Saturation ABG Base Excess ABG Hemoglobin ABG Oxyhemoglobin ABG Sodium ABG Potassium ABG Chloride ABG Glucose Oxyhemoglobin Carboxyhemoglobin Sodium Potassium Chloride Carbon Dioxide BUN Creatinine Glucose POC Glucose 112 H 120 H 132 H Lactic Acid Calcium Phosphorus Magnesium Total Creatine Kinase Troponin T Total Protein Albumin Triglycerides LDL Cholesterol Direct HDL Cholesterol Arterial Blood Glucose Arterial Blood Ionized Calcium Urine pH Urine WBC (Auto) Vancomycin Trough Salicylates Acetaminophen Crossmatch 11/24/20 11/24/20 11/24/20 11:27 16:48 23:11 WBC RBC Hgb Hct MCV MCH MCHC RDW Plt Count Lymph % (Auto) Seg Neutrophils % Seg Neuts % (Manual) Lymphocytes % (Manual) Nucleated RBC % Seg Neutrophils # Seg Neutrophils # Man Lymphocytes # (Manual) Monocytes # (Manual) PT INR ABG pH POC ABG pCO2 POC ABG pO2 ABG pO2 ABG HCO3 ABG O2 Saturation ABG Base Excess ABG Hemoglobin ABG Oxyhemoglobin ABG Sodium ABG Potassium ABG Chloride ABG Glucose Oxyhemoglobin Carboxyhemoglobin Sodium Potassium Chloride Carbon Dioxide BUN Creatinine Glucose POC Glucose 137 H 128 H 114 H Lactic Acid Calcium Phosphorus Magnesium Total Creatine Kinase Troponin T Total Protein Albumin Triglycerides LDL Cholesterol Direct HDL Cholesterol Arterial Blood Glucose Arterial Blood Ionized Calcium Urine pH Urine WBC (Auto) Vancomycin Trough Salicylates Acetaminophen Crossmatch 11/25/20 11/25/20 11/25/20 05:06 11:20 11:31 WBC 19.0 H RBC 2.28 L Hgb 7.3 L Hct 22.5 L MCV 99 H MCH MCHC RDW 18.3 H Plt Count Lymph % (Auto) Seg Neutrophils % Seg Neuts % (Manual) Lymphocytes % (Manual) Nucleated RBC % Seg Neutrophils # Seg Neutrophils # Man Lymphocytes # (Manual) Monocytes # (Manual) PT INR ABG pH POC ABG pCO2 POC ABG pO2 ABG pO2 ABG HCO3 ABG O2 Saturation ABG Base Excess ABG Hemoglobin ABG Oxyhemoglobin ABG Sodium ABG Potassium ABG Chloride ABG Glucose Oxyhemoglobin Carboxyhemoglobin Sodium Potassium Chloride Carbon Dioxide BUN Creatinine Glucose POC Glucose 125 H 106 H Lactic Acid Calcium Phosphorus Magnesium Total Creatine Kinase Troponin T Total Protein Albumin Triglycerides LDL Cholesterol Direct HDL Cholesterol Arterial Blood Glucose Arterial Blood Ionized Calcium Urine pH Urine WBC (Auto) Vancomycin Trough Salicylates Acetaminophen Crossmatch Allied health notes reviewed: nursing
--- NOTE | 2020-11-25 15:28 | Progress Note ---
Assessment and Plan Assessment and plan: 75-year-old male who is a long-term resident with seizure disorder, hypertension, depression, hyperlipidemia, hypoglycemia, dysphagia, and encephalopathy who is admitted for sepsis, acute kidney injury, urinary tract infection, acute respiratory failure, electrolyte imbalances, infected sacral wound and bilateral pneumonia Sepsis Acute respiratory failure with Hypoxia Cardiovascular shock Infected sacral wound s/p debridement with surgery Generalized anasarca possible acute diastolic congestive heart failure Anemia Afib Bilateral pleural effusion Right and left lung atelectasis secondary to mucous plug Proteus bacteremia MRSA pneumonia Urine tract infection Leukocytosis Acute kidney injury with vasomotor Nephropathy Acute Diarrhea ?C.diff- Test was not peformed SFA occlusion - Not a candidate for surgery per Vascular -ID, cardiology, CCM, surgery, vascular surgery, nephrology, surgery, WOCN consulted, appreciate recommendations -FAZAL, pneumonia, infected sacral wound, acute respiratory failure, leukocytosis, hypotension requiring vasopressor support -Antibiotic therapy -Trend CBC and BMP -10/26 tracheal aspirate with MRSA, 10/26 blood cultures x2 with Proteus mirabilis, 10/27 urine culture possible contaminant, 11/15: Trach aspirate positive for staph coccus aureus, 11/06 occult stool positive -On mechanical ventilation, wean as tolerated, VAP bundle, CPAP trials as tolerated -Wound care per nursing -Sedated with fentanyl -Midodrine, norepinephrine as needed -Vancomycin -Amiodarone for rate control -S/p IVF resuscitation -HIT panel negative -Surgery consulted for trach/PEG placement (planned 11/21/2020); transfuse 1 unit PRBC on 11/18 per surgery request for goal hemoglobin greater than 8. -s/p 4 units PRBC during stay GI/DVT prophylaxis: Lovenox subq, SCDs to bilateral legs while in bed, PPI Dispo: ICU, [facility] The high probability of a clinically significant, sudden or life threatening deterioration of the [pulmonary, cardiac] system(s) required my full and direct attention, intervention and personal management. The aggregate critical care ti me was [35] minutes. This time is in addition to time spent performing reported procedures but includes the following: [X] Data Review and interpretation [X] Patient assessment and monitoring of vital signs [X] Documentation [X] Medication orders and management History Interval history: This is a 75-year-old male who is a long-term resident with seizure disorder, hypertension, depression, hyperlipidemia, hypoglycemia, dysphagia, and encephalopathy who presents to the emergency department on 10/26 via EMS for tachypnea, dry mucous membranes and hypoxia. Patient was hypotensive, febrile to 103 degrees and hypoxic in the emergency department therefore he was intubated and central IV access was obtained. Patient received 3.5 L of IV fluid in the emergency department. Patient was admitted to the hospital service with consults to CCM, surgery, WOCN and ID for Sepsis, acute kidney injury, urinary tract infection, acute respiratory failure, electrolyte imbalances, infected sacral wound and bilateral pneumonia. 10/27: Patient received additional 4 L LR for fluid resuscitation and CV monitoring was initiated. Patient is on Levophed. ID added Flagyl to vancomycin and cefepime. His trach aspirate grew staph coccus aureus. At the time my examination patient the fentanyl drip was held by RN and he was on 14 MCG of Levophed. This morning he was on assist control 450/20/6/.100. We will give additional bolus of fluids with goal CVP 10-12 and repeat labs in AM. Surgery was consulted to possible debridement. 10/28: Overnight it was noted that patient went into SVT and he was given adenosine 6 mg/12 mg / 12 mg once and was started on a Cardizem drip after no response to amnio bolus and cardiology was consulted. Currently patient remains on Levophed drip and is hypotensive and received additional 2 L of bolus for goal CVP of 10-12. Infectious disease changed cefepime/Flagyl to meropenem for GNR in his blood cultures 09/04 and will continue vancomycin. Patient currently was not well controlled on max Cardizem and cardiology initiated amiodarone. Patient still is very tachycardic. Patient is hypomagnesemic and we will reple te his Mg and recheck level. We will give the patient additional to complete resolve LR this afternoon. Patient has a standing order per [facility] to bolus the patient with LR for CVP goal of 10-12. This morning he is hyperchlormeic, metabolic acidotic (bicarb drip initiated) and his BUN/creatinine slightly elevated. Patient still remains lactic acidotic. 10/29: Patient's blood culture speciated to Proteus and his tracheal aspirate is MRSA. He is currently on ceftriaxone, Flagyl and vancomycin. Patient heart rate consistently is 110-150s and cardiology has given him an amiodarone bolus today and he remains on amiodarone drip. He looks much started on IV digoxin. This morning 4 L LR bolus was ordered and we will bolus an additional 4 L of LR this afternoon. Patient still has lactic acidosis, metabolic acidosis, leukocytosis and hyperchloremia. On examination this morning patient is more edematous and he remains on Levophed and amnio drip. 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 Remains on amio, levo and sedated with fentanyl. He is hypokalemic today which was repleted, h/h 02/18 and he is being type and crossed today with 2 units PRBC ordered to be transfused. Plt drop noted, heparin discontinued and HIT ordered. Bicarb gtt discontinued. No acute e vents overnight. 10/31: Patient hypomagnesemia today which was repleted and cardiology has changed his IV amiodarone to p.o. Patient will get albumin per [facility]. At the time my examination patient is on assist control 450/20/6/0.40. 11/03: At the time my examination patient is on assist control 450/20/6/0.25 and sedated with fentanyl and on Levophed at 4.Patient's leukocytosis is improving he received Albumin this weekend. Patient is hypokalemic, hypomagnesemic, hypocalcemic today. We will repeat his electrolytes and recheck a BMP in the a.m. Patient received 2 units PRBC on 10/30 and his hemoglobin has been trending down. We will recheck in the a.m. 11/04: At the time of my examination patient was on Levophed 3 mcg and on VZV/CPAP 450/20/6/0.35. Patient still has leukocytosis, respiratory alkalosis, hyponatremia, hypochloremia, hypocalcemia. Today his magnesium and potassium repleted with bolus of potassium 4/magnesium 2. He received 60 mcg KCl p.o., 40 mEq of KCl IV and 2 g of magnesium sulfate. We will recheck BMP and mag and a.m. Surgery has deemed the patient to unstable for further debulking. We also consulted vascular surgery for PVD as patient has discoloration to BLE /feet. 11/05: Vascular surgery will obtain bilateral lower extremity arterial duplex to evaluate arterial flow and recommends adding as FWF to tube feedings in assisting to wean off of vasopressors. Patient has hypokalemia, hypophosphatemia and normal to low magnesium. Magnesium, potassium and phosp hate have been repleted. Patient still remains on ventilator support but on CPAP trial this morning. Patient HIT is still pending. This morning at the time of my examination patient was on assist-control 450/20/6/0.35 and he tolerated CPAP trial for 4 hours yesterday. He was on Levophed 0.5 and his rectal tube output was noted at 1000 mL. 11/06: This morning patient was on a CPAP trial and became hypoxic with SPO2 into the 80s and was switched back to assist control. Patient's vent settings are assist control tidal and 450, rate 20, PEEP 6, FiO2 0.25. Today patient has leukocytosis, hypernatremia, hyperchloremia, hypocalcemia and hypophosphatemia. We will repeat a phosphate. His free water flushes have been increased and his magnesium has been repleted again. Patient has been started on Lovenox given improvement in his platelet count and on midodrine to help keep Levophed off. Infectious disease will continue p.o. vancomycin for total of 10 days. 11/07: Patient failed his CPAP trial yesterday and has been placed on CPAP 10/ again this morning by RT. Overnight patient was rested on assist control tolerance by 50, rate of 20, pressure support 6 and FiO2 30%. His lab work is still pending for this morning. On repeat his phosphorus was 4.50 yesterday and repletion was discontinued. 11/08/2020; patient is off pressors currently on midodrine. Patient is on ceftriaxone and vancomycin. Patient is on assist control. Patient was evaluated by vascular surgery for peripheral vascular disease with SFA occlusion and recommend no intervention at this time. Prognosis is guarded. Patient is on 2 L of intranasal oxygen. We will put speech therapy evaluation. 11/09/2020; patient is currently off pressors and on midodrine. Continue with ceftriaxone, Flagyl and vancomycin per ID recommendation. Patient's blood culture grew Proteus mirabilis and tracheal aspirate grew MRSA. Patient was evaluated by vascular surgery for PVD with SFA occlusion and recommend no intervention at this time. Patient is on 2 L of intranasal oxygen. Currently patient is on tube feeding and follow speech therapy evaluation. 11/10: Overnight noted to have increased RR, ? Awaiting speech eval considering patient still on Tube feeds. Continue to monitor Hypernatremia. Antibiotics today will be D12/14. Will continue discharge planning on discussion with CM. Patient nonrebreather. Possibly back on congestive heart failure will need appropriate diuresis. Transferred back to [facility]. Discussed with pin drafting machine tender and also with cardiology. 11/11: Remains lethargic remains in respiratory distress chest x-ray shows right lung collapse likely secondary to mucous plug. Discussed with pin drafting machine tender will likely undergo a bronchoscopy today. We will also continue to monitor as we did suggest possible pleural effusion which we think may be less likely but if that seems to be the case we will send patient for thoracentesis following the bronchoscopy. Continue to monitor hemoglobin continue to monitor diarrhea antibiotics management per infectious disease. I did speak and update patient's cousin yesterday. Patient still with edema will await cardiology reevaluation for possible further diuresis. 11/12: Patient for Bronchoscopy today. Continue supportive care 11/13: Patient Clinically improving, tolerated Bronchoscopy yesterday. Awaiting am labs today. Overnight had bradycardia. Continue weaning oxygen. Discussed with mattress weaver patient did have bronchial plug plus pleural effusion but will address. Will monitor serial x-rays. Discussed with nursing staff about my discussion with the brother. Continue supportive care. PER Brother,([phone] patient has had recurrent knee aspiration. Cardiology to re-evaluate today for Bradycardia noted overnight 11/14: Patient had a repeat bronchoscopy yesterday of the right lung due to mucous plug. Dough Molder Hand did have a conversation with the cousin as one of the considerations may be a trach due to recurrent pulmonary mucous plug and also significant debility for patient's overall medical condition. And his inability to maintain his airway. We will start him on a low round of D5 until diet is established. We will continue to monitor clinical status this morning. Plan discussed with nursing staff patient and also with health diagnostics teacher 11/15: Continues to show some improvement, will check CXR today. Wean oxygen as tolerated, will likely need Trach per pulmonary. WBC improving, will monitor Sodium level. Patient on dopamin. 11/16: Patient overnight required intubation due to worsening respiratory failure secondary to complete opacification of the right lung again. This has appeared to cleared up this morning following the intuabation. Cousin advised of the finding, he will try to get us all his records because he believes that the patient has had a trach done before but is not sure. Started on Pressors due to hypotension 11/17: Today general surgery was consulted for trach/PEG placement, patient grew staph and tracheal aspirate and his cefepime was stopped and [facility] ordered a trial dose of Lasix. At the time my examination patient was on 1 mcg of fentanyl and dopamine 5 mcg/kg per cardiology. He has hyperchloremia and his lab work and is anemic today at 6.6/20.2. Patient received 1 unit PRBC. We will obtain a CBC in the a.m. 11/18: No acute events reported overnight, patient was given Lasix again by [facility], surgery has requested transfusion of one 1 unit PRBC despite H/H being 7.4/23.4 and plans to do a tracheostomy and plans to perform PEG and trach placement on 11/21/2020. We will follow up BMP and CBC in the a.m. Coags ordered. 11/19: Patient's next of kin still Mr. Buckley's next of kin/POA is still undecided about trach/PEG, surgeon aware. [facility] has given the patient another dose of Lasix and he was noted to be in atrial fibrillation with RVR this morning. C ardiology is aware and they have opted to resume amiodarone drip for rate control. We will obtain a BMP in the a.m. 11/20: At the time of examination patient remains on amiodarone 0.05 mcg and fentanyl 1 mcg on assist control tidal volume 500, rate 20, PEEP 6, FiO2 of 40%. Patient will have Lasix dose again. Dr. Quintanilla updated the family today. 11/21: Patient remains atrial fibrillation but is better rate controlled. Patient was taking to the OR for trach/PEG General surgery. No acute events reported overnight. Patient was given diuresed again and we will recheck a BMP in the a.m. 11/22. Patient tolerated tracheostomy. Alert no new concerns. Patient able to not that he is not in pain. 11/23 patient appears to be tolerating PEG tube feedings able to use tube feedings no new concerns over p.m. alert improving respiratory failure 11/24: No acute events overgnight. At the time my examination patient was on assist control tidal volume 500, rate 12, PEEP 6, FiO2 50%. Patient fentanyl drip discontinued and placed on IV push fentanyl 50 mcg every 2 hours. RN to remove right IJ. 11/25: Continue CPAP trials as tolerated, amiodarone decreased, midodrine and metoprolol initiated by cardiology. Patient had an episode of emesis however he denied being nauseous and did not have any emesis when trach suctioned. Patient remains afebrile. Midline was placed yesterday and IJ removed. Patient has leukocytosis but remains off of vasopressors, antibiotics and is febrile. At the time of examination patient is on assist control 21 500, rate 20, PEEP 6 and FiO2 45%. Hospitalist Physical - Constitutional Vitals: Temp Pulse Resp BP Pulse Ox 98.1 F 92 H 12 122/84 97 11/25/20 12:00 11/25/20 15:00 11/25/20 15:00 11/25/20 15:00 11/25/20 15:00 General appearance: Present: no acute distress, other (Patient resting comfortably on vent) - EENT Eyes: Present: PERRL, EOM intact ENT: poor dentition - Neck Neck: Present: normal ROM - Respiratory Respiratory effort: normal Respiratory: bilateral: rhonchi - Cardiovascular Rhythm: irregularly irregular Heart Sounds: Present: S1 & S2. Absent: systolic murmur, diastolic murmur - Extremities Extremities: no ischemia, pulses intact, pulses symmetrical, normal temperature, normal color Peripheral Pulses: within normal limits - Abdominal General gastrointestinal: soft, non-tender, non-distended, normal bowel sounds - Integumentary Integumentary: Present: warm, dry - Psychiatric Psychiatric: cooperative - Neurologic Neurologic: CNII-XII intact, no focal deficits, other (follows commands) - Allied Health Allied health notes reviewed: nursing, RT HEART Score - HEART Score EKG: Non-specific Age: > 65 Risk factors: > 3 risk factors or hx of atherosclerotic disease Troponin: Troponin T 0.123 ng/mL (0.00-0.029) H* 11/13/20 23:15 Troponin: < normal limit - Critical Actions Critical Actions: 4-6 pts:12-16.6% risk of adverse cardiac event. Should be admitted Results - Labs CBC & Chem 7: 11/25/20 11:20 11/23/20 10:23 Labs: Laboratory Last Values WBC 19.0 K/mm3 (4.5-11.0) H 11/25/20 11:20 RBC 2.28 M/mm3 (3.65-5.03) L 11/25/20 11:20 Hgb 7.3 gm/dl (11.8-15.2) L 11/25/20 11:20 Hct 22.5 % (35.5-45.6) L 11/25/20 11:20 MCV 99 fl (84-94) H 11/25/20 11:20 MCH 32 pg (28-32) 11/25/20 11:20 MCHC 32 % (32-34) 11/25/20 11:20 RDW 18.3 % (13.2-15.2) H 11/25/20 11:20 Plt Count 280 K/mm3 (140-440) 11/25/20 11:20 Lymph % (Auto) 9.1 % (13.4-35.0) L 11/09/20 06:00 Baldwin % (Auto) 5.4 % (0.0-7.3) 11/09/20 06:00 Eos % (Auto) 0.3 % (0.0-4.3) 11/09/20 06:00 Baso % (Auto) 0.4 % (0.0-1.8) 11/09/20 06:00 Lymph # (Auto) 1.2 K/mm3 (1.2-5.4) 11/09/20 06:00 Baldwin # (Auto) 0.7 K/mm3 (0.0-0.8) 11/09/20 06:00 Eos # (Auto) 0.0 K/mm3 (0.0-0.4) 11/09/20 06:00 Baso # (Auto) 0.0 K/mm3 (0.0-0.1) 11/09/20 06:00 Add Manual Diff Complete 11/23/20 10:23 Total Counted 100 11/23/20 10:23 Seg Neutrophils % 84.8 % (40.0-70.0) H 11/09/20 06:00 Seg Neuts % (Manual) 94.0 % (40.0-70.0) H 11/23/20 10:23 Band Neutrophils % 17.0 % 10/27/20 03:30 Lymphocytes % (Manual) 5.0 % (13.4-35.0) L 11/23/20 10:23 Monocytes % (Manual) 1.0 % (0.0-7.3) 11/23/20 10:23 Eosinophils % (Manual) 2.0 % (0.0-4.3) 10/27/20 03:30 Metamyelocytes % 4.0 % 10/27/20 03:30 Nucleated RBC % Not Reportable 11/23/20 10:23 Seg Neutrophils # 11.1 K/mm3 (1.8-7.7) H 11/09/20 06:00 Seg Neutrophils # Man 10.6 K/mm3 (1.8-7.7) H 11/23/20 10:23 Band Neutrophils # 0.0 K/mm3 11/23/20 10:23 Lymphocytes # (Manual) 0.6 K/mm3 (1.2-5.4) L 11/23/20 10:23 Abs React Lymphs (Man) 0.0 K/mm3 11/23/20 10:23 Monocytes # (Manual) 0.1 K/mm3 (0.0-0.8) 11/23/20 10:23 Eosinophils # (Manual) 0.0 K/mm3 (0.0-0.4) 11/23/20 10:23 Basophils # (Manual) 0.0 K/mm3 (0.0-0.1) 11/23/20 10:23 Metamyelocytes # 0.0 K/mm3 11/23/20 10:23 Myelocytes # 0.0 K/mm3 11/23/20 10:23 Promyelocytes # 0.0 K/mm3 11/23/20 10:23 Blast Cells # 0.0 K/mm3 11/23/20 10:23 WBC Morphology Not Reportable 11/23/20 10:23 Hypersegmented Neuts Not Reportable 11/23/20 10:23 Hyposegmented Neuts Not Reportable 11/23/20 10:23 Hypogranular Neuts Not Reportable 11/23/20 10:23 Smudge Cells Not Reportable 11/23/20 10:23 Toxic Granulation Not Reportable 11/23/20 10:23 Toxic Vacuolation Not Reportable 11/23/20 10:23 Dohle Bodies Not Reportable 11/23/20 10:23 Pelger-Huet Anomaly Not Reportable 11/23/20 10:23 Kassi Rods Not Reportable 11/23/20 10:23 Platelet Estimate Consistent w auto 11/23/20 10:23 Clumped Platelets Not Reportable 11/23/20 10:23 Plt Clumps, EDTA Not Reportable 11/23/20 10:23 Large Platelets Not Reportable 11/23/20 10:23 Giant Platelets Not Reportable 11/23/20 10:23 Platelet Satelliting Not Reportable 11/23/20 10:23 Plt Morphology Comment Not Reportable 11/23/20 10:23 RBC Morphology Normal 11/23/20 10:23 Dimorphic RBCs Not Reportable 11/23/20 10:23 Polychromasia Not Reportable 11/23/20 10:23 Hypochromasia Not Reportable 11/23/20 10:23 Poikilocytosis Not Reportable 11/23/20 10:23 Anisocytosis Not Reportable 11/23/20 10:23 Microcytosis Not Reportable 11/23/20 10:23 Macrocytosis Not Reportable 11/23/20 10:23 Spherocytes Not Reportable 11/23/20 10:23 Pappenheimer Bodies Not Reportable 11/23/20 10:23 Sickle Cells Not Reportable 11/23/20 10:23 Target Cells Not Reportable 11/23/20 10:23 Tear Drop Cells Not Reportable 11/23/20 10:23 Ovalocytes Not Reportable 11/23/20 10:23 Helmet Cells Not Reportable 11/23/20 10:23 Mendieta-Schlusser Bodies Not Reportable 11/23/20 10:23 Arrey Rings Not Reportable 11/23/20 10:23 [place] Cells Not Reportable 11/23/20 10:23 Bite Cells Not Reportable 11/23/20 10:23 Crenated Cell Not Reportable 11/23/20 10:23 Elliptocytes Not Reportable 11/23/20 10:23 Acanthocytes (Spur) Not Reportable 11/23/20 10:23 Rouleaux Not Reportable 11/23/20 10:23 Hemoglobin C Crystals Not Reportable 11/23/20 10:23 Schistocytes Not Reportable 11/23/20 10:23 Malaria parasites Not Reportable 11/23/20 10:23 Richard Bodies Not Reportable 11/23/20 10:23 Hem Pathologist Commnt No 11/23/20 10:23 PT 14.7 Sec. (12.2-14.9) 11/19/20 06:36 INR 1.15 (0.87-1.13) H 11/19/20 06:36 APTT 27.9 Sec. (24.2-36.6) 10/26/20 17:25 Heparin Anti-Xa, Unfract Negative (Negative) 11/03/20 11:01 ABG pH 7.489 (7.320-7.450) H 11/23/20 04:25 POC ABG pCO2 38.2 mmHg (32.0-48.0) 11/23/20 04:25 ABG pCO2 43.4 mm Hg 11/19/20 Unknown POC ABG pO2 74.7 mmHg (83-108) L 11/23/20 04:25 ABG pO2 72.4 mm Hg (80.0-90.0) L 11/19/20 Unknown POC ABG HCO3 28.4 11/23/20 04:25 ABG HCO3 26.9 mmol/L (20.0-26.0) H 11/19/20 Unknown ABG O2 Saturation 95.5 (0-100) 11/23/20 04:25 ABG O2 Content 11.3 (0.0-44) 11/19/20 Unknown POC ABG Base Excess 4.8 11/23/20 04:25 ABG Base Excess 2.0 mmol/L (-2.0-3.0) 11/19/20 Unknown ABG Hemoglobin 9.6 (12.0-17.5) L 11/23/20 04:25 ABG Oxyhemoglobin 94.5 (94-98) 11/23/20 04:25 ABG Carboxyhemoglobin 2.0 % (0.0-5.0) 11/19/20 Unknown ABG Methemoglobin 0.3 (0.0-1.5) 11/23/20 04:25 ABG Sodium 135.6 mmol/L (136.0-145.0) L 11/23/20 04:25 ABG Potassium 3.8 mmol/L (3.40-4.50) 11/23/20 04:25 ABG Chloride 105.0 mmol/L (98-107) 11/23/20 04:25 ABG Glucose 119 mg/dL (65-95) H 11/23/20 04:25 Oxyhemoglobin 94.1 % (95.0-99.0) L 11/19/20 Unknown Carboxyhemoglobin 0.7 (0.5-1.5) 11/23/20 04:25 FiO2 30 % 11/19/20 Unknown FiO2 % 35.0 11/23/20 04:25 Sodium 140 mmol/L (137-145) 11/23/20 10:23 Potassium 3.7 mmol/L (3.6-5.0) 11/23/20 10:23 Chloride 104.5 mmol/L (98-107) 11/23/20 10:23 Carbon Dioxide 29 mmol/L (22-30) 11/23/20 10:23 Anion Gap 10 mmol/L 11/23/20 10:23 BUN 13 mg/dL (9-20) 11/23/20 10:23 Creatinine 0.4 mg/dL (0.8-1.3) L 11/23/20 10:23 Estimated GFR > 60 ml/min 11/23/20 10:23 BUN/Creatinine Ratio 33 % 11/23/20 10:23 Glucose 101 mg/dL (75-100) H 11/23/20 10:23 POC Glucose 106 mg/dL (70-105) H 11/25/20 11:31 Hemoglobin A1c 5.5 % (4-6) 10/27/20 04:42 Lactic Acid 4.30 mmol/L (0.7-2.0) H* 10/31/20 Unknown Calcium 7.2 mg/dL (8.4-10.2) L 11/23/20 10:23 Phosphorus 4.50 mg/dL (2.5-4.5) D 11/06/20 13:03 Magnesium 1.70 mg/dL (1.7-2.3) 11/21/20 09:47 Total Bilirubin < 0.20 mg/dL (0.1-1.2) 11/06/20 06:45 AST 23 units/L (5-40) 11/06/20 06:45 ALT 20 units/L (7-56) 11/06/20 06:45 Alkaline Phosphatase 117 units/L (35-129) 11/06/20 06:45 Total Creatine Kinase 31 units/L (55-170) L 10/26/20 17:28 Troponin T 0.123 ng/mL (0.00-0.029) H* 11/13/20 23:15 Total Protein 5.0 g/dL (6.3-8.2) L 11/06/20 06:45 Albumin 1.4 g/dL (3.9-5) L 11/06/20 06:45 Albumin/Globulin Ratio 0.4 % 11/06/20 06:45 Triglycerides 190 mg/dL (2-149) H 10/26/20 17:25 Cholesterol 92 mg/dL (50-199) 10/26/20 17:25 LDL Cholesterol Direct 33 mg/dL (50-130) L 10/26/20 17:25 HDL Cholesterol 18 mg/dL (40-59) L 10/26/20 17:25 Cholesterol/HDL Ratio 5.11 % 10/26/20 17:25 Serotonin Release Assay See scanned results 11/03/20 11:01 TSH 1.490 mlU/mL (0.270-4.200) 10/26/20 17:28 Arterial Blood Glucose 119 mg/dL (65-95) H 11/23/20 04:25 Arterial Blood Ionized Calcium 4.4 mg/dL (4.6-5.3) L 11/23/20 04:25 Urine Color Yellow (Yellow) 10/27/20 Unknown Urine Turbidity Turbid (Clear) 10/27/20 Unknown Urine pH 8.0 (5.0-7.0) H 10/27/20 Unknown Ur Specific Murchison 1.020 (1.003-1.030) 10/27/20 Unknown Urine Protein >500 mg/dL (Negative) 10/27/20 Unknown Urine Glucose (UA) Neg mg/dL (Negative) 10/27/20 Unknown Urine Ketones Neg mg/dL (Negative) 10/27/20 Unknown Urine Blood Sm (Negative) 10/27/20 Unknown Urine Nitrite Neg (Negative) 10/27/20 Unknown Urine Bilirubin Neg (Negative) 10/27/20 Unknown Urine Urobilinogen < 2.0 mg/dL (<2.0) 10/27/20 Unknown Ur Leukocyte Esterase Mod (Negative) 10/27/20 Unknown Urine WBC (Auto) > 182.0 /HPF (0.0-6.0) H 10/27/20 Unknown Urine RBC (Auto) 35.0 /HPF (0.0-6.0) 10/27/20 Unknown Urine WBC Clumps 3+ /HPF 10/27/20 Unknown Urine Mucus 3+ /HPF 10/27/20 Unknown Urine Yeast (Budding) 3+ /HPF 10/27/20 Unknown Vancomycin Trough 18.0 ug/mL (5.0-20.0) 11/19/20 09:06 Salicylates < 0.3 mg/dL (2.8-20.0) L 10/26/20 17:28 Acetaminophen 5.0 ug/mL (10.0-30.0) L 10/26/20 17:28 Heparin-induced Plt Ab Negative (Negative) 11/03/20 11:01 UF Heparin High Dose 0 % Release 11/03/20 11:01 MOISES UFH Low Dose 0.1 2 % Release 11/03/20 11:01 MOISES UFH Low Dose 0.5 0 % Release 11/03/20 11:01 Coronavirus (PCR) Negative (Negative) 10/27/20 Unknown Blood Type O POSITIVE 11/17/20 11:10 Antibody Screen Negative 11/17/20 11:10 Crossmatch See Detail 11/17/20 11:10 Rivas/IV: Voiding Method Indwelling Catheter Active Medications - Current Medications Current Medications: Generic Name Dose Route Start Last Admin Trade Name Freq PRN Reason Stop Dose Admin Acetaminophen 650 mg 10/26/20 22:22 11/13/20 14:36 Acetaminophen 325 Mg Tab PO 650 mg Q4H PRN Administration Pain MILD(1-3)/Fever >100.5/TIERNEY Albuterol 2.5 mg 11/11/20 14:00 11/25/20 13:24 Albuterol 2.5 Mg/3 Ml Nebu IH 2.5 mg TIDRT MARSHALL Administration Amiodarone HCl 200 mg 11/25/20 10:00 11/25/20 10:34 Amiodarone 200 Mg Tab PO Not Given BID [facility] Lipase/Protease/Amylase 1 each 10/28/20 13:18 Lipase 10,500/Protease 25,000/Amylase 43,750 (Units) Dr Cap FEEDTUBE PRN PRN For Clogged Feeding Tube Enoxaparin Sodium 40 mg 11/22/20 22:00 11/24/20 21:48 Enoxaparin 40 Mg/0.4 Ml Inj SUB-Q 40 mg QDAY@2200 [facility] Administration Protocol Famotidine 20 mg 11/24/20 22:00 11/25/20 10:20 Famotidine 20 Mg Tab PO 20 mg BID [facility] Administration Fentanyl 50 mcg 11/15/20 22:30 11/19/20 09:51 Fentanyl 100 Mcg/2 Ml Inj IV 50 mcg Q10MIN PRN Administration ANALGESIA Hydrophilic Ointment 1 applic 11/15/20 22:30 Lip Therapy Vaseline TP Q2HR PRN Dry Lips Norepinephrine 4 mg in 250 mls @ 7.5 mls/hr 11/15/20 23:45 11/17/20 01:37 Levophed Drip 4 Mg/Ns 250 Ml IV 0 mcg/min TITR MARSHALL 0 mls/hr Titration Protocol 2 MCG/MIN Metoprolol Tartrate 12.5 mg 11/25/20 10:00 11/25/20 11:43 Metoprolol Tartrate 25 Mg Tab PO 12.5 mg BID [facility] Administration Midodrine 10 mg 11/06/20 12:00 11/25/20 11:44 Midodrine 5 Mg Tab PO 10 mg TID@0800,1200,1600 [facility] Administration Multi-Ingred Cream/Lotion/Oil/Oint 1 applic 11/15/20 22:30 Mineral Oil/Petrolatum, White Ophth Oint 3.5 Gm OU Q4HR PRN Dry Eye(s) Ondansetron HCl 4 mg 10/26/20 22:22 Ondansetron 4 Mg/2 Ml Inj IV Q8H PRN Nausea And Vomiting Simple Syrup 15 ml 10/28/20 13:18 11/10/20 16:01 Simple Syrup 15 Ml FEEDTUBE 15 ml PRN PRN Administration Hypoglycemia Simple Syrup 30 ml 10/28/20 13:18 Simple Syrup 15 Ml FEEDTUBE PRN PRN Hypoglycemia Sodium Bicarbonate 325 mg 10/28/20 13:18 Sodium Bicarbonate 325 Mg Tab FEEDTUBE PRN PRN For Clogged Feeding Tube Sodium Chloride 10 ml 10/27/20 10:00 11/25/20 10:20 Sodium Chloride 0.9% 10 Ml Flush Syringe IV 10 ml BID [facility]SHALL Administration Sodium Chloride 10 ml 10/26/20 22:22 Sodium Chloride 0.9% 10 Ml Flush Syringe IV PRN PRN LINE FLUSH Sodium Hypochlorite 1 applic 10/28/20 10:00 11/25/20 10:19 Sodium Hypochlorite, Dakin's 1/2 Strength (0.25%) 473 Ml Topical Soln TP 1 applicatio BID [facility]SHALL Administration Nutrition/Malnutrition Assess - Dietary Evaluation Nutrition/Malnutrition Findings: Nutrition Notes Start: 10/27/20 09:15 Freq: Status: Active Protocol: Document 11/25/20 14:43 CW (Rec: 11/25/20 14:55 CW [id number]) Nutrition Notes Need for Assessment generated from: MD Order Current Diagnosis Acute Kidney Injury,Decubitus( Pressure Ulcer),Sepsis, Hypertension,Respiratory Failure,Hyperlipidemia Other Pertinent Diagnosis AMS, MRSA, Encephalopathy, Metabiloc Acidosis, pneu ,FTT Current Diet Promote at 80 ml/hr Labs/Tests no new labs Pertinent Medications reviewed Height 6 ft 2 in Weight 85 kg [place] Body Weight (kg) 86.36 BMI 24.0 Weight Status Obese Subjective/Other Information F/U for TF tolerance. Pt had events of emesis. Will change TF for tolerance and wound healing. Diarrhea likely r/t ABTx Percent of energy/protein needs met: 94%/82% (1750 ml) Burn Absent Trauma Absent GI Symptoms Diarrhea Difficulty In Swallowing,Chewing Skin Integrity/Comment Multiple pressure ulcer,1 infected Current % PO Negligible Minimum of two criteria No Fluid Accumulation Moderate to Severe (severe) #2 Nutrition Diagnosis Increased nutrient needs ( specify in comment below) Diagnosis Progress(for reassessment Continues documentation) #1 Nutrition Diagnosis Inadequate oral intake Diagnosis Progress(for reassessment Continues documentation) Is patient on ventilator? Yes Is Patient Ambulatory and/or Out of Bed No REE-([place]-confined to bed) [phone] Kcal/Kg value to use for calculation 22 Approximate Energy Requirements Using 1870 kcal/Kg Calculation Used for Recommendations Kcal/kg Additional Notes protein needs: 133 - 167g(1.2 - 1.5 g/kgAdBW 111) Fluid needs 1 ml/kcal Nutrition Intervention Change Diet Order: Change TF to Vital AF Nutrition Support: Vital AF at 70 ml/hr with a free water flush of 115 ml q4h Kcal 2,016 Protein (gm) 126 Fluid (mL) 1,362 Goal #1 TF change adn tolerance tolerance Goal #2 Meet at least 75% EER and protein needs via TF Goal #3 wound healing Anticipated Discharge Needs: TF Follow-Up By: 11/27/20 Additional Comments F/U for TF change, tolerance, and at goal
[2020-11-25] MEDS: ENOXAPARIN 40 MG/0.4 ML INJ SUB-Q SCH (21:08)
[2020-11-26] MEDS: fentaNYL 100 MCG/2 ML INJ IV PRN (05:03)
[2020-11-26] MEDS: ALBUTEROL 2.5 MG/3 ML NEBU IH SCH ×3 (08:12→20:24)
--- NOTE | 2020-11-26 08:25 | Progress Note ---
Assessment and Plan - Patient Problems (1) FAZAL (acute kidney injury) Current Visit: Yes Status: Acute (2) Acute respiratory failure with hypoxia Current Visit: Yes Status: Acute (3) Atrial fibrillation and flutter Current Visit: Yes Status: Acute (4) Sacral decubitus ulcer, stage IV Current Visit: Yes Status: Acute (5) Sepsis Current Visit: Yes Status: Acute Subjective Principal diagnosis: Acute Resp Fail, PNA, Septic Shock, Sacral Ulcer, AF with RVR Interval history: awake on cpap10/6 Objective Vital Signs - 12hr 11/25/20 11/25/20 11/25/20 20:30 21:00 21:05 Temperature Pulse Rate 95 H 92 H Pulse Rate [ 86 Anterior Bilateral Throughout] Pulse Rate [ 92 H Bilateral] Pulse Rate [ From Monitor] Respiratory 20 14 Rate Respiratory 25 H Rate [Anterior Bilateral Throughout] Respiratory 24 Rate [Bilateral ] Blood Pressure 109/68 119/74 O2 Sat by Pulse 96 98 Oximetry O2 Sat by Pulse Oximetry [ Assessment] 11/25/20 11/25/20 11/25/20 21:06 21:08 21:30 Temperature Pulse Rate 82 82 101 H Pulse Rate [ Anterior Bilateral Throughout] Pulse Rate [ Bilateral] Pulse Rate [ From Monitor] Respiratory 18 Rate Respiratory Rate [Anterior Bilateral Throughout] Respiratory Rate [Bilateral ] Blood Pressure 119/74 119/74 104/76 O2 Sat by Pulse 98 98 Oximetry O2 Sat by Pulse Oximetry [ Assessment] 11/25/20 11/25/20 11/25/20 22:00 22:30 23:00 Temperature Pulse Rate 92 H 100 H 99 H Pulse Rate [ Anterior Bilateral Throughout] Pulse Rate [ Bilateral] Pulse Rate [ From Monitor] Respiratory 15 12 17 Rate Respiratory Rate [Anterior Bilateral Throughout] Respiratory Rate [Bilateral ] Blood Pressure 113/73 107/73 119/94 O2 Sat by Pulse 99 90 99 Oximetry O2 Sat by Pulse Oximetry [ Assessment] 11/25/20 11/26/20 11/26/20 23:30 00:00 00:30 Temperature 97.6 F Pulse Rate 101 H 104 H 97 H Pulse Rate [ Anterior Bilateral Throughout] Pulse Rate [ Bilateral] Pulse Rate [ 89 From Monitor] Respiratory 20 19 14 Rate Respiratory Rate [Anterior Bilateral Throughout] Respiratory Rate [Bilateral ] Blood Pressure 113/66 121/72 111/71 O2 Sat by Pulse 95 99 98 Oximetry O2 Sat by Pulse Oximetry [ Assessment] 11/26/20 11/26/20 11/26/20 01:00 01:30 02:00 Temperature Pulse Rate Pulse Rate [ Anterior Bilateral Throughout] Pulse Rate [ Bilateral] Pulse Rate [ From Monitor] Respiratory Rate Respiratory Rate [Anterior Bilateral Throughout] Respiratory Rate [Bilateral ] Blood Pressure 113/74 119/83 121/72 O2 Sat by Pulse 100 95 98 Oximetry O2 Sat by Pulse Oximetry [ Assessment] 11/26/20 11/26/20 11/26/20 02:30 03:00 03:30 Temperature Pulse Rate 105 H Pulse Rate [ Anterior Bilateral Throughout] Pulse Rate [ Bilateral] Pulse Rate [ From Monitor] Respiratory 13 Rate Respiratory Rate [Anterior Bilateral Throughout] Respiratory Rate [Bilateral ] Blood Pressure 113/74 117/74 117/79 O2 Sat by Pulse 100 100 99 Oximetry O2 Sat by Pulse Oximetry [ Assessment] 11/26/20 11/26/20 11/26/20 04:00 04:30 05:00 Temperature 98.6 F Pulse Rate 107 H 109 H 112 H Pulse Rate [ Anterior Bilateral Throughout] Pulse Rate [ Bilateral] Pulse Rate [ 112 H From Monitor] Respiratory 12 19 18 Rate Respiratory Rate [Anterior Bilateral Throughout] Respiratory Rate [Bilateral ] Blood Pressure 112/85 126/81 126/81 O2 Sat by Pulse 85 100 Oximetry O2 Sat by Pulse Oximetry [ Assessment] 11/26/20 11/26/20 11/26/20 05:08 05:12 05:30 Temperature Pulse Rate 109 H 110 H Pulse Rate [ Anterior Bilateral Throughout] Pulse Rate [ Bilateral] Pulse Rate [ From Monitor] Respiratory 13 Rate Respiratory Rate [Anterior Bilateral Throughout] Respiratory Rate [Bilateral ] Blood Pressure 131/83 122/82 O2 Sat by Pulse 97 97 Oximetry O2 Sat by Pulse 98 Oximetry [ Assessment] 11/26/20 11/26/20 11/26/20 06:00 06:30 08:14 Temperature Pulse Rate 105 H 106 H 119 H Pulse Rate [ Anterior Bilateral Throughout] Pulse Rate [ Bilateral] Pulse Rate [ From Monitor] Respiratory 14 18 Rate Respiratory Rate [Anterior Bilateral Throughout] Respiratory Rate [Bilateral ] Blood Pressure 125/78 119/77 124/74 O2 Sat by Pulse 98 94 96 Oximetry O2 Sat by Pulse Oximetry [ Assessment] Constitutional: alert, other ( trach on vent) Eyes: non-icteric ENT: oropharynx moist Neck: supple Effort: normal Ascultation: Bilateral: clear, rhonchi Percussion: Bilateral: not dull Cardiovascular: regular rate and rhythm (no mrg) Gastrointestinal: normoactive bowel sounds, soft, non-tender Extremities: no cyanosis, cool, anasarca Neurologic: non-focal exam Psychiatric: mood appropriate, affect normal CBC and BMP: 11/26/20 09:25 11/26/20 09:25 ABG, PT/INR, D-dimer: ABG ABG pH 7.480 (7.320-7.450) H 11/25/20 16:25 POC ABG pCO2 43.1 mmHg (32.0-48.0) 11/25/20 16:25 ABG pCO2 43.4 mm Hg 11/19/20 Unknown POC ABG pO2 78.1 mmHg (83-108) L 11/25/20 16:25 ABG pO2 72.4 mm Hg (80.0-90.0) L 11/19/20 Unknown POC ABG HCO3 31.4 11/25/20 16:25 ABG O2 Saturation 96.0 (0-100) 11/25/20 16:25 PT/INR, D-dimer PT 14.7 Sec. (12.2-14.9) 11/19/20 06:36 INR 1.15 (0.87-1.13) H 11/19/20 06:36 Abnormal lab findings: Abnormal Labs 10/26/20 10/26/20 10/26/20 17:25 17:25 17:25 WBC 23.3 H RBC 3.10 L Hgb 9.6 L Hct 30.3 L MCV 98 H MCH MCHC RDW 17.4 H Plt Count 521 H Lymph % (Auto) Seg Neutrophils % Seg Neuts % (Manual) 78.0 H Lymphocytes % (Manual) 11.0 L Nucleated RBC % Seg Neutrophils # Seg Neutrophils # Man 18.2 H Lymphocytes # (Manual) Monocytes # (Manual) 1.4 H PT INR ABG pH POC ABG pCO2 POC ABG pO2 ABG pO2 ABG HCO3 ABG O2 Saturation ABG Base Excess ABG Hemoglobin ABG Oxyhemoglobin ABG Sodium ABG Potassium ABG Chloride ABG Glucose Oxyhemoglobin Carboxyhemoglobin Sodium 148 H Potassium Chloride 109.3 H Carbon Dioxide 19 L BUN 57 H Creatinine 1.5 H Glucose 151 H POC Glucose Lactic Acid 9.60 H* Calcium Phosphorus Magnesium Total Creatine Kinase Troponin T 0.062 H Total Protein Albumin 1.7 L Triglycerides 190 H LDL Cholesterol Direct 33 L HDL Cholesterol 18 L Arterial Blood Glucose Arterial Blood Ionized Calcium Urine pH Urine WBC (Auto) Vancomycin Trough Salicylates Acetaminophen Crossmatch 10/26/20 10/26/20 10/26/20 17:28 17:28 17:28 WBC RBC Hgb Hct MCV MCH MCHC RDW Plt Count Lymph % (Auto) Seg Neutrophils % Seg Neuts % (Manual) Lymphocytes % (Manual) Nucleated RBC % Seg Neutrophils # Seg Neutrophils # Man Lymphocytes # (Manual) Monocytes # (Manual) PT INR ABG pH POC ABG pCO2 POC ABG pO2 ABG pO2 ABG HCO3 ABG O2 Saturation ABG Base Excess ABG Hemoglobin ABG Oxyhemoglobin ABG Sodium ABG Potassium ABG Chloride ABG Glucose Oxyhemoglobin Carboxyhemoglobin Sodium Potassium Chloride Carbon Dioxide BUN Creatinine Glucose POC Glucose Lactic Acid Calcium Phosphorus Magnesium Total Creatine Kinase 31 L Troponin T Total Protein Albumin Triglycerides LDL Cholesterol Direct HDL Cholesterol Arterial Blood Glucose Arterial Blood Ionized Calcium Urine pH Urine WBC (Auto) Vancomycin Trough Salicylates < 0.3 L Acetaminophen 5.0 L Crossmatch 10/26/20 10/26/20 10/26/20 17:30 20:11 22:00 WBC RBC Hgb Hct MCV MCH MCHC RDW Plt Count Lymph % (Auto) Seg Neutrophils % Seg Neuts % (Manual) Lymphocytes % (Manual) Nucleated RBC % Seg Neutrophils # Seg Neutrophils # Man Lymphocytes # (Manual) Monocytes # (Manual) PT INR ABG pH 7.235 L POC ABG pCO2 POC ABG pO2 ABG pO2 312.4 H ABG HCO3 16.4 L ABG O2 Saturation 99.5 H ABG Base Excess -10.4 L ABG Hemoglobin 11.0 L ABG Oxyhemoglobin ABG Sodium ABG Potassium ABG Chloride ABG Glucose Oxyhemoglobin Carboxyhemoglobin Sodium Potassium Chloride Carbon Dioxide BUN Creatinine Glucose POC Glucose Lactic Acid 7.70 H* 6.40 H* Calcium Phosphorus Magnesium Total Creatine Kinase Troponin T Total Protein Albumin Triglycerides LDL Cholesterol Direct HDL Cholesterol Arterial Blood Glucose Arterial Blood Ionized Calcium Urine pH Urine WBC (Auto) Vancomycin Trough Salicylates Acetaminophen Crossmatch 10/27/20 10/27/20 10/27/20 03:25 03:30 04:00 WBC 20.3 H RBC 3.10 L Hgb 9.6 L Hct 30.6 L MCV 99 H MCH MCHC 31 L RDW 16.9 H Plt Count Lymph % (Auto) Seg Neutrophils % Seg Neuts % (Manual) Lymphocytes % (Manual) Nucleated RBC % Seg Neutrophils # Seg Neutrophils # Man 11.6 H Lymphocytes # (Manual) Monocytes # (Manual) PT INR ABG pH 7.218 L POC ABG pCO2 POC ABG pO2 62.9 L ABG pO2 ABG HCO3 ABG O2 Saturation ABG Base Excess ABG Hemoglobin 10.6 L ABG Oxyhemoglobin 86.6 L ABG Sodium ABG Potassium 4.8 H ABG Chloride 114.0 H ABG Glucose 116 H Oxyhemoglobin Carboxyhemoglobin 0.4 L Sodium Potassium Chloride 110.2 H Carbon Dioxide 17 L BUN 55 H Creatinine 1.5 H Glucose 109 H POC Glucose Lactic Acid Calcium 7.9 L Phosphorus Magnesium Total Creatine Kinase Troponin T Total Protein Albumin 1.3 L Triglycerides LDL Cholesterol Direct HDL Cholesterol Arterial Blood Glucose 116 H Arterial Blood Ionized Calcium Urine pH Urine WBC (Auto) Vancomycin Trough Salicylates Acetaminophen Crossmatch 10/27/20 10/28/20 10/28/20 Unknown 00:40 00:40 WBC 23.1 H RBC 2.42 L Hgb 7.5 L Hct 23.7 L D MCV 98 H MCH MCHC RDW 16.8 H Plt Count Lymph % (Auto) Seg Neutrophils % Seg Neuts % (Manual) Lymphocytes % (Manual) Nucleated RBC % Seg Neutrophils # Seg Neutrophils # Man Lymphocytes # (Manual) Monocytes # (Manual) PT INR ABG pH POC ABG pCO2 POC ABG pO2 ABG pO2 ABG HCO3 ABG O2 Saturation ABG Base Excess ABG Hemoglobin ABG Oxyhemoglobin ABG Sodium ABG Potassium ABG Chloride ABG Glucose Oxyhemoglobin Carboxyhemoglobin Sodium Potassium Chloride 111.4 H Carbon Dioxide 19 L BUN 49 H Creatinine Glucose POC Glucose Lactic Acid Calcium 7.3 L Phosphorus Magnesium 1.40 L Total Creatine Kinase Troponin T Total Protein 5.8 L Albumin 1.2 L Triglycerides LDL Cholesterol Direct HDL Cholesterol Arterial Blood Glucose Arterial Blood Ionized Calcium Urine pH 8.0 H Urine WBC (Auto) > 182.0 H Vancomycin Trough Salicylates Acetaminophen Crossmatch 10/28/20 10/28/20 10/28/20 03:30 05:36 05:36 WBC RBC Hgb Hct MCV MCH MCHC RDW Plt Count Lymph % (Auto) Seg Neutrophils % Seg Neuts % (Manual) Lymphocytes % (Manual) Nucleated RBC % Seg Neutrophils # Seg Neutrophils # Man Lymphocytes # (Manual) Monocytes # (Manual) PT INR ABG pH 7.175 L POC ABG pCO2 POC ABG pO2 71.5 L ABG pO2 ABG HCO3 ABG O2 Saturation ABG Base Excess ABG Hemoglobin 8.8 L ABG Oxyhemoglobin ABG Sodium ABG Potassium 4.7 H ABG Chloride 114.0 H ABG Glucose 100 H Oxyhemoglobin Carboxyhemoglobin Sodium Potassium Chloride 114.6 H Carbon Dioxide 15 L BUN 48 H Creatinine 1.4 H Glucose POC Glucose Lactic Acid 7.60 H* Calcium 7.7 L Phosphorus Magnesium Total Creatine Kinase Troponin T Total Protein Albumin Triglycerides LDL Cholesterol Direct HDL Cholesterol Arterial Blood Glucose 100 H Arterial Blood Ionized Calcium 4.4 L Urine pH Urine WBC (Auto) Vancomycin Trough Salicylates Acetaminophen Crossmatch 10/28/20 10/28/20 10/29/20 17:18 23:18 03:50 WBC RBC Hgb Hct MCV MCH MCHC RDW Plt Count Lymph % (Auto) Seg Neutrophils % Seg Neuts % (Manual) Lymphocytes % (Manual) Nucleated RBC % Seg Neutrophils # Seg Neutrophils # Man Lymphocytes # (Manual) Monocytes # (Manual) PT INR ABG pH POC ABG pCO2 30.0 L POC ABG pO2 ABG pO2 ABG HCO3 ABG O2 Saturation ABG Base Excess ABG Hemoglobin 8.1 L ABG Oxyhemoglobin ABG Sodium ABG Potassium ABG Chloride 113.0 H ABG Glucose 153 H Oxyhemoglobin Carboxyhemoglobin 0.4 L Sodium Potassium Chloride Carbon Dioxide BUN Creatinine Glucose POC Glucose 134 H 149 H Lactic Acid Calcium Phosphorus Magnesium Total Creatine Kinase Troponin T Total Protein Albumin Triglycerides LDL Cholesterol Direct HDL Cholesterol Arterial Blood Glucose 153 H Arterial Blood Ionized Calcium 4.1 L Urine pH Urine WBC (Auto) Vancomycin Trough Salicylates Acetaminophen Crossmatch 10/29/20 10/29/20 10/29/20 05:09 05:15 05:15 WBC 23.9 H RBC 2.66 L Hgb 8.3 L Hct 26.3 L MCV 99 H MCH MCHC RDW 17.5 H Plt Count Lymph % (Auto) Seg Neutrophils % Seg Neuts % (Manual) Lymphocytes % (Manual) Nucleated RBC % Seg Neutrophils # Seg Neutrophils # Man Lymphocytes # (Manual) Monocytes # (Manual) PT INR ABG pH POC ABG pCO2 POC ABG pO2 ABG pO2 ABG HCO3 ABG O2 Saturation ABG Base Excess ABG Hemoglobin ABG Oxyhemoglobin ABG Sodium ABG Potassium ABG Chloride ABG Glucose Oxyhemoglobin Carboxyhemoglobin Sodium Potassium Chloride 110.4 H Carbon Dioxide 15 L BUN 40 H Creatinine Glucose 140 H POC Glucose 123 H Lactic Acid Calcium 7.0 L Phosphorus Magnesium Total Creatine Kinase Troponin T Total Protein 6.0 L Albumin 1.0 L Triglycerides LDL Cholesterol Direct HDL Cholesterol Arterial Blood Glucose Arterial Blood Ionized Calcium Urine pH Urine WBC (Auto) Vancomycin Trough Salicylates Acetaminophen Crossmatch 10/29/20 10/29/20 10/29/20 05:15 10:37 11:41 WBC RBC Hgb Hct MCV MCH MCHC RDW Plt Count Lymph % (Auto) Seg Neutrophils % Seg Neuts % (Manual) Lymphocytes % (Manual) Nucleated RBC % Seg Neutrophils # Seg Neutrophils # Man Lymphocytes # (Manual) Monocytes # (Manual) PT INR ABG pH POC ABG pCO2 POC ABG pO2 ABG pO2 ABG HCO3 ABG O2 Saturation ABG Base Excess ABG Hemoglobin ABG Oxyhemoglobin ABG Sodium ABG Potassium ABG Chloride ABG Glucose Oxyhemoglobin Carboxyhemoglobin Sodium Potassium Chloride Carbon Dioxide BUN Creatinine Glucose POC Glucose 121 H Lactic Acid 9.90 H* 10.90 H* Calcium Phosphorus Magnesium Total Creatine Kinase Troponin T Total Protein Albumin Triglycerides LDL Cholesterol Direct HDL Cholesterol Arterial Blood Glucose Arterial Blood Ionized Calcium Urine pH Urine WBC (Auto) Vancomycin Trough Salicylates Acetaminophen Crossmatch 10/29/20 10/29/20 10/30/20 15:56 23:24 02:26 WBC RBC Hgb Hct MCV MCH MCHC RDW Plt Count Lymph % (Auto) Seg Neutrophils % Seg Neuts % (Manual) Lymphocytes % (Manual) Nucleated RBC % Seg Neutrophils # Seg Neutrophils # Man Lymphocytes # (Manual) Monocytes # (Manual) PT INR ABG pH POC ABG pCO2 POC ABG pO2 76.6 L ABG pO2 ABG HCO3 ABG O2 Saturation ABG Base Excess ABG Hemoglobin 6.4 L ABG Oxyhemoglobin 93.8 L ABG Sodium ABG Potassium 2.9 L ABG Chloride 110.0 H ABG Glucose 212 H Oxyhemoglobin Carboxyhemoglobin Sodium Potassium Chloride Carbon Dioxide BUN Creatinine Glucose POC Glucose 132 H 175 H Lactic Acid Calcium Phosphorus Magnesium Total Creatine Kinase Troponin T Total Protein Albumin Triglycerides LDL Cholesterol Direct HDL Cholesterol Arterial Blood Glucose 212 H Arterial Blood Ionized Calcium 3.9 L Urine pH Urine WBC (Auto) Vancomycin Trough Salicylates Acetaminophen Crossmatch 10/30/20 10/30/20 10/30/20 04:54 04:54 05:14 WBC 20.7 H RBC 2.28 L Hgb 7.0 L Hct 21.9 L MCV 96 H MCH MCHC RDW 17.0 H Plt Count 90 L Lymph % (Auto) Seg Neutrophils % Seg Neuts % (Manual) Lymphocytes % (Manual) Nucleated RBC % Seg Neutrophils # Seg Neutrophils # Man Lymphocytes # (Manual) Monocytes # (Manual) PT INR ABG pH POC ABG pCO2 POC ABG pO2 ABG pO2 ABG HCO3 ABG O2 Saturation ABG Base Excess ABG Hemoglobin ABG Oxyhemoglobin ABG Sodium ABG Potassium ABG Chloride ABG Glucose Oxyhemoglobin Carboxyhemoglobin Sodium Potassium 3.0 L D Chloride Carbon Dioxide BUN 28 H Creatinine 0.6 L Glucose 214 H POC Glucose 187 H Lactic Acid Calcium 6.2 L Phosphorus Magnesium Total Creatine Kinase Troponin T Total Protein Albumin Triglycerides LDL Cholesterol Direct HDL Cholesterol Arterial Blood Glucose Arterial Blood Ionized Calcium Urine pH Urine WBC (Auto) Vancomycin Trough Salicylates Acetaminophen Crossmatch 10/30/20 10/30/20 10/30/20 09:30 11:40 17:51 WBC RBC Hgb Hct MCV MCH MCHC RDW Plt Count Lymph % (Auto) Seg Neutrophils % Seg Neuts % (Manual) Lymphocytes % (Manual) Nucleated RBC % Seg Neutrophils # Seg Neutrophils # Man Lymphocytes # (Manual) Monocytes # (Manual) PT INR ABG pH POC ABG pCO2 POC ABG pO2 ABG pO2 ABG HCO3 ABG O2 Saturation ABG Base Excess ABG Hemoglobin ABG Oxyhemoglobin ABG Sodium ABG Potassium ABG Chloride ABG Glucose Oxyhemoglobin Carboxyhemoglobin Sodium Potassium Chloride Carbon Dioxide BUN Creatinine Glucose POC Glucose 183 H 136 H Lactic Acid Calcium Phosphorus Magnesium Total Creatine Kinase Troponin T Total Protein Albumin Triglycerides LDL Cholesterol Direct HDL Cholesterol Arterial Blood Glucose Arterial Blood Ionized Calcium Urine pH Urine WBC (Auto) Vancomycin Trough Salicylates Acetaminophen Crossmatch See Detail 10/30/20 10/30/20 10/30/20 18:53 23:25 Unknown WBC RBC Hgb Hct MCV MCH MCHC RDW Plt Count Lymph % (Auto) Seg Neutrophils % Seg Neuts % (Manual) Lymphocytes % (Manual) Nucleated RBC % Seg Neutrophils # Seg Neutrophils # Man Lymphocytes # (Manual) Monocytes # (Manual) PT INR ABG pH POC ABG pCO2 POC ABG pO2 ABG pO2 ABG HCO3 ABG O2 Saturation ABG Base Excess ABG Hemoglobin ABG Oxyhemoglobin ABG Sodium ABG Potassium ABG Chloride ABG Glucose Oxyhemoglobin Carboxyhemoglobin Sodium Potassium Chloride Carbon Dioxide BUN Creatinine Glucose POC Glucose 130 H Lactic Acid Calcium Phosphorus Magnesium Total Creatine Kinase Troponin T Total Protein Albumin Triglycerides LDL Cholesterol Direct HDL Cholesterol Arterial Blood Glucose Arterial Blood Ionized Calcium Urine pH Urine WBC (Auto) Vancomycin Trough 21.4 H 22.0 H Salicylates Acetaminophen Crossmatch 10/30/20 10/31/20 10/31/20 Unknown 02:54 03:42 WBC 21.1 H 23.0 H RBC 2.36 L Hgb 7.3 L 11.4 L D Hct 22.7 L 34.1 L D MCV 96 H MCH MCHC RDW 17.1 H 16.2 H Plt Count 73 L 33 L Lymph % (Auto) Seg Neutrophils % Seg Neuts % (Manual) Lymphocytes % (Manual) Nucleated RBC % Seg Neutrophils # Seg Neutrophils # Man Lymphocytes # (Manual) Monocytes # (Manual) PT INR ABG pH 7.517 H POC ABG pCO2 25.7 L POC ABG pO2 52.3 L ABG pO2 ABG HCO3 ABG O2 Saturation ABG Base Excess ABG Hemoglobin ABG Oxyhemoglobin 90.8 L ABG Sodium ABG Potassium ABG Chloride 109.0 H ABG Glucose 147 H Oxyhemoglobin Carboxyhemoglobin Sodium Potassium Chloride Carbon Dioxide BUN Creatinine Glucose POC Glucose Lactic Acid Calcium Phosphorus Magnesium Total Creatine Kinase Troponin T Total Protein Albumin Triglycerides LDL Cholesterol Direct HDL Cholesterol Arterial Blood Glucose 147 H Arterial Blood Ionized Calcium 4.0 L Urine pH Urine WBC (Auto) Vancomycin Trough Salicylates Acetaminophen Crossmatch 10/31/20 10/31/20 10/31/20 04:37 04:37 05:08 WBC 21.7 H RBC Hgb Hct MCV MCH MCHC RDW 16.1 H Plt Count 39 L Lymph % (Auto) Seg Neutrophils % Seg Neuts % (Manual) Lymphocytes % (Manual) Nucleated RBC % Seg Neutrophils # Seg Neutrophils # Man Lymphocytes # (Manual) Monocytes # (Manual) PT INR ABG pH POC ABG pCO2 POC ABG pO2 ABG pO2 ABG HCO3 ABG O2 Saturation ABG Base Excess ABG Hemoglobin ABG Oxyhemoglobin ABG Sodium ABG Potassium ABG Chloride ABG Glucose Oxyhemoglobin Carboxyhemoglobin Sodium Potassium Chloride 108.4 H Carbon Dioxide BUN 25 H Creatinine 0.5 L Glucose 140 H POC Glucose 140 H Lactic Acid Calcium 6.1 L Phosphorus Magnesium 1.50 L Total Creatine Kinase Troponin T Total Protein Albumin Triglycerides LDL Cholesterol Direct HDL Cholesterol Arterial Blood Glucose Arterial Blood Ionized Calcium Urine pH Urine WBC (Auto) Vancomycin Trough Salicylates Acetaminophen Crossmatch 10/31/20 10/31/20 10/31/20 11:12 18:50 23:21 WBC RBC Hgb Hct MCV MCH MCHC RDW Plt Count Lymph % (Auto) Seg Neutrophils % Seg Neuts % (Manual) Lymphocytes % (Manual) Nucleated RBC % Seg Neutrophils # Seg Neutrophils # Man Lymphocytes # (Manual) Monocytes # (Manual) PT INR ABG pH POC ABG pCO2 POC ABG pO2 ABG pO2 ABG HCO3 ABG O2 Saturation ABG Base Excess ABG Hemoglobin ABG Oxyhemoglobin ABG Sodium ABG Potassium ABG Chloride ABG Glucose Oxyhemoglobin Carboxyhemoglobin Sodium Potassium Chloride Carbon Dioxide BUN Creatinine Glucose POC Glucose 125 H 142 H 127 H Lactic Acid Calcium Phosphorus Magnesium Total Creatine Kinase Troponin T Total Protein Albumin Triglycerides LDL Cholesterol Direct HDL Cholesterol Arterial Blood Glucose Arterial Blood Ionized Calcium Urine pH Urine WBC (Auto) Vancomycin Trough Salicylates Acetaminophen Crossmatch 10/31/20 11/01/20 11/01/20 Unknown 03:40 04:21 WBC RBC Hgb Hct MCV MCH MCHC RDW Plt Count Lymph % (Auto) Seg Neutrophils % Seg Neuts % (Manual) Lymphocytes % (Manual) Nucleated RBC % Seg Neutrophils # Seg Neutrophils # Man Lymphocytes # (Manual) Monocytes # (Manual) PT INR ABG pH 7.489 H POC ABG pCO2 POC ABG pO2 ABG pO2 77.2 L ABG HCO3 ABG O2 Saturation ABG Base Excess ABG Hemoglobin 7.1 L ABG Oxyhemoglobin ABG Sodium ABG Potassium ABG Chloride ABG Glucose Oxyhemoglobin Carboxyhemoglobin Sodium Potassium 3.1 L Chloride 107.1 H Carbon Dioxide BUN 25 H Creatinine 0.5 L Glucose 148 H POC Glucose Lactic Acid 4.30 H* Calcium 6.0 L Phosphorus Magnesium Total Creatine Kinase Troponin T Total Protein Albumin Triglycerides LDL Cholesterol Direct HDL Cholesterol Arterial Blood Glucose Arterial Blood Ionized Calcium Urine pH Urine WBC (Auto) Vancomycin Trough Salicylates Acetaminophen Crossmatch 11/01/20 11/01/20 11/01/20 05:13 11:42 17:38 WBC RBC Hgb Hct MCV MCH MCHC RDW Plt Count Lymph % (Auto) Seg Neutrophils % Seg Neuts % (Manual) Lymphocytes % (Manual) Nucleated RBC % Seg Neutrophils # Seg Neutrophils # Man Lymphocytes # (Manual) Monocytes # (Manual) PT INR ABG pH POC ABG pCO2 POC ABG pO2 ABG pO2 ABG HCO3 ABG O2 Saturation ABG Base Excess ABG Hemoglobin ABG Oxyhemoglobin ABG Sodium ABG Potassium ABG Chloride ABG Glucose Oxyhemoglobin Carboxyhemoglobin Sodium Potassium Chloride Carbon Dioxide BUN Creatinine Glucose POC Glucose 139 H 139 H 161 H Lactic Acid Calcium Phosphorus Magnesium Total Creatine Kinase Troponin T Total Protein Albumin Triglycerides LDL Cholesterol Direct HDL Cholesterol Arterial Blood Glucose Arterial Blood Ionized Calcium Urine pH Urine WBC (Auto) Vancomycin Trough Salicylates Acetaminophen Crossmatch 11/01/20 11/01/20 11/02/20 23:20 Unknown 04:30 WBC 18.2 H RBC 3.27 L Hgb 9.9 L Hct 30.1 L D MCV MCH MCHC RDW 15.7 H Plt Count 34 L Lymph % (Auto) Seg Neutrophils % Seg Neuts % (Manual) Lymphocytes % (Manual) Nucleated RBC % Seg Neutrophils # Seg Neutrophils # Man Lymphocytes # (Manual) Monocytes # (Manual) PT INR ABG pH 7.456 H POC ABG pCO2 POC ABG pO2 ABG pO2 ABG HCO3 ABG O2 Saturation ABG Base Excess ABG Hemoglobin 9.2 L ABG Oxyhemoglobin ABG Sodium ABG Potassium ABG Chloride ABG Glucose Oxyhemoglobin Carboxyhemoglobin Sodium Potassium Chloride Carbon Dioxide BUN Creatinine Glucose POC Glucose 168 H Lactic Acid Calcium Phosphorus Magnesium Total Creatine Kinase Troponin T Total Protein Albumin Triglycerides LDL Cholesterol Direct HDL Cholesterol Arterial Blood Glucose Arterial Blood Ionized Calcium Urine pH Urine WBC (Auto) Vancomycin Trough Salicylates Acetaminophen Crossmatch 11/02/20 11/02/20 11/02/20 06:29 08:40 08:40 WBC 16.6 H RBC 2.87 L Hgb 8.8 L Hct 26.6 L MCV MCH MCHC RDW 15.8 H Plt Count 30 L Lymph % (Auto) Seg Neutrophils % Seg Neuts % (Manual) 97.0 H Lymphocytes % (Manual) 2.0 L Nucleated RBC % 1.0 H Seg Neutrophils # Seg Neutrophils # Man 16.1 H Lymphocytes # (Manual) 0.3 L Monocytes # (Manual) PT INR ABG pH POC ABG pCO2 POC ABG pO2 ABG pO2 ABG HCO3 ABG O2 Saturation ABG Base Excess ABG Hemoglobin ABG Oxyhemoglobin ABG Sodium ABG Potassium ABG Chloride ABG Glucose Oxyhemoglobin Carboxyhemoglobin Sodium Potassium 2.4 L* D Chloride 110.2 H Carbon Dioxide BUN 23 H Creatinine 0.4 L Glucose 154 H POC Glucose 131 H Lactic Acid Calcium 6.1 L Phosphorus Magnesium 1.50 L Total Creatine Kinase Troponin T Total Protein Albumin Triglycerides LDL Cholesterol Direct HDL Cholesterol Arterial Blood Glucose Arterial Blood Ionized Calcium Urine pH Urine WBC (Auto) Vancomycin Trough Salicylates Acetaminophen Crossmatch 11/02/20 11/02/20 11/02/20 13:17 17:25 18:05 WBC RBC Hgb Hct MCV MCH MCHC RDW Plt Count Lymph % (Auto) Seg Neutrophils % Seg Neuts % (Manual) Lymphocytes % (Manual) Nucleated RBC % Seg Neutrophils # Seg Neutrophils # Man Lymphocytes # (Manual) Monocytes # (Manual) PT INR ABG pH POC ABG pCO2 POC ABG pO2 ABG pO2 ABG HCO3 ABG O2 Saturation ABG Base Excess ABG Hemoglobin ABG Oxyhemoglobin ABG Sodium ABG Potassium ABG Chloride ABG Glucose Oxyhemoglobin Carboxyhemoglobin Sodium Potassium 3.1 L D Chloride Carbon Dioxide BUN Creatinine Glucose POC Glucose 134 H 140 H Lactic Acid Calcium Phosphorus Magnesium Total Creatine Kinase Troponin T Total Protein Albumin Triglycerides LDL Cholesterol Direct HDL Cholesterol Arterial Blood Glucose Arterial Blood Ionized Calcium Urine pH Urine WBC (Auto) Vancomycin Trough Salicylates Acetaminophen Crossmatch 11/02/20 11/03/20 11/03/20 23:36 04:15 05:07 WBC RBC Hgb Hct MCV MCH MCHC RDW Plt Count Lymph % (Auto) Seg Neutrophils % Seg Neuts % (Manual) Lymphocytes % (Manual) Nucleated RBC % Seg Neutrophils # Seg Neutrophils # Man Lymphocytes # (Manual) Monocytes # (Manual) PT INR ABG pH POC ABG pCO2 POC ABG pO2 ABG pO2 ABG HCO3 ABG O2 Saturation ABG Base Excess ABG Hemoglobin ABG Oxyhemoglobin ABG Sodium ABG Potassium ABG Chloride ABG Glucose Oxyhemoglobin Carboxyhemoglobin Sodium Potassium 3.0 L Chloride 111.8 H Carbon Dioxide BUN 24 H Creatinine 0.3 L Glucose 141 H POC Glucose 127 H 156 H Lactic Acid Calcium 5.8 L* Phosphorus Magnesium 1.60 L Total Creatine Kinase Troponin T Total Protein Albumin Triglycerides LDL Cholesterol Direct HDL Cholesterol Arterial Blood Glucose Arterial Blood Ionized Calcium Urine pH Urine WBC (Auto) Vancomycin Trough Salicylates Acetaminophen Crossmatch 11/03/20 11/03/20 11/04/20 11:14 17:31 00:17 WBC RBC Hgb Hct MCV MCH MCHC RDW Plt Count Lymph % (Auto) Seg Neutrophils % Seg Neuts % (Manual) Lymphocytes % (Manual) Nucleated RBC % Seg Neutrophils # Seg Neutrophils # Man Lymphocytes # (Manual) Monocytes # (Manual) PT INR ABG pH POC ABG pCO2 POC ABG pO2 ABG pO2 ABG HCO3 ABG O2 Saturation ABG Base Excess ABG Hemoglobin ABG Oxyhemoglobin ABG Sodium ABG Potassium ABG Chloride ABG Glucose Oxyhemoglobin Carboxyhemoglobin Sodium Potassium Chloride Carbon Dioxide BUN Creatinine Glucose POC Glucose 137 H 151 H 156 H Lactic Acid Calcium Phosphorus Magnesium Total Creatine Kinase Troponin T Total Protein Albumin Triglycerides LDL Cholesterol Direct HDL Cholesterol Arterial Blood Glucose Arterial Blood Ionized Calcium Urine pH Urine WBC (Auto) Vancomycin Trough Salicylates Acetaminophen Crossmatch 11/04/20 11/04/20 11/04/20 05:34 05:34 11:16 WBC 21.9 H RBC 2.67 L Hgb 8.2 L Hct 24.8 L MCV MCH MCHC RDW 15.6 H Plt Count 48 L Lymph % (Auto) Seg Neutrophils % Seg Neuts % (Manual) Lymphocytes % (Manual) Nucleated RBC % Seg Neutrophils # Seg Neutrophils # Man Lymphocytes # (Manual) Monocytes # (Manual) PT INR ABG pH POC ABG pCO2 POC ABG pO2 ABG pO2 ABG HCO3 ABG O2 Saturation ABG Base Excess ABG Hemoglobin ABG Oxyhemoglobin ABG Sodium ABG Potassium ABG Chloride ABG Glucose Oxyhemoglobin Carboxyhemoglobin Sodium 146 H Potassium Chloride 114.6 H Carbon Dioxide BUN 29 H Creatinine 0.3 L Glucose 173 H POC Glucose 156 H Lactic Acid Calcium 5.7 L* Phosphorus Magnesium Total Creatine Kinase Troponin T Total Protein Albumin Triglycerides LDL Cholesterol Direct HDL Cholesterol Arterial Blood Glucose Arterial Blood Ionized Calcium Urine pH Urine WBC (Auto) Vancomycin Trough Salicylates Acetaminophen Crossmatch 11/04/20 11/04/20 11/04/20 11:42 17:18 23:12 WBC RBC Hgb Hct MCV MCH MCHC RDW Plt Count Lymph % (Auto) Seg Neutrophils % Seg Neuts % (Manual) Lymphocytes % (Manual) Nucleated RBC % Seg Neutrophils # Seg Neutrophils # Man Lymphocytes # (Manual) Monocytes # (Manual) PT INR ABG pH 7.525 H POC ABG pCO2 28.9 L POC ABG pO2 64.3 L ABG pO2 ABG HCO3 ABG O2 Saturation ABG Base Excess ABG Hemoglobin 8.2 L ABG Oxyhemoglobin ABG Sodium ABG Potassium 3.3 L ABG Chloride 115.0 H ABG Glucose 165 H Oxyhemoglobin Carboxyhemoglobin Sodium Potassium Chloride Carbon Dioxide BUN Creatinine Glucose POC Glucose 144 H 155 H Lactic Acid Calcium Phosphorus Magnesium Total Creatine Kinase Troponin T Total Protein Albumin Triglycerides LDL Cholesterol Direct HDL Cholesterol Arterial Blood Glucose 165 H Arterial Blood Ionized Calcium 4.0 L Urine pH Urine WBC (Auto) Vancomycin Trough Salicylates Acetaminophen Crossmatch 11/05/20 11/05/20 11/05/20 04:48 04:48 05:57 WBC 17.4 H RBC 2.49 L Hgb 7.8 L Hct 23.5 L MCV MCH MCHC RDW 16.0 H Plt Count 69 L Lymph % (Auto) Seg Neutrophils % Seg Neuts % (Manual) Lymphocytes % (Manual) Nucleated RBC % Seg Neutrophils # Seg Neutrophils # Man Lymphocytes # (Manual) Monocytes # (Manual) PT INR ABG pH POC ABG pCO2 POC ABG pO2 ABG pO2 ABG HCO3 ABG O2 Saturation ABG Base Excess ABG Hemoglobin ABG Oxyhemoglobin ABG Sodium ABG Potassium ABG Chloride ABG Glucose Oxyhemoglobin Carboxyhemoglobin Sodium 147 H Potassium 3.5 L Chloride 115.4 H Carbon Dioxide BUN 34 H Creatinine 0.3 L Glucose 154 H POC Glucose 146 H Lactic Acid Calcium 6.1 L Phosphorus 2.00 L Magnesium Total Creatine Kinase Troponin T Total Protein Albumin Triglycerides LDL Cholesterol Direct HDL Cholesterol Arterial Blood Glucose Arterial Blood Ionized Calcium Urine pH Urine WBC (Auto) Vancomycin Trough Salicylates Acetaminophen Crossmatch 11/05/20 11/05/20 11/05/20 11:33 17:52 23:37 WBC RBC Hgb Hct MCV MCH MCHC RDW Plt Count Lymph % (Auto) Seg Neutrophils % Seg Neuts % (Manual) Lymphocytes % (Manual) Nucleated RBC % Seg Neutrophils # Seg Neutrophils # Man Lymphocytes # (Manual) Monocytes # (Manual) PT INR ABG pH POC ABG pCO2 POC ABG pO2 ABG pO2 ABG HCO3 ABG O2 Saturation ABG Base Excess ABG Hemoglobin ABG Oxyhemoglobin ABG Sodium ABG Potassium ABG Chloride ABG Glucose Oxyhemoglobin Carboxyhemoglobin Sodium Potassium Chloride Carbon Dioxide BUN Creatinine Glucose POC Glucose 144 H 136 H 151 H Lactic Acid Calcium Phosphorus Magnesium Total Creatine Kinase Troponin T Total Protein Albumin Triglycerides LDL Cholesterol Direct HDL Cholesterol Arterial Blood Glucose Arterial Blood Ionized Calcium Urine pH Urine WBC (Auto) Vancomycin Trough Salicylates Acetaminophen Crossmatch 11/06/20 11/06/20 11/06/20 05:36 06:45 06:45 WBC 15.0 H RBC 2.33 L Hgb 7.2 L Hct 22.1 L MCV 95 H MCH MCHC RDW 16.2 H Plt Count 103 L Lymph % (Auto) Seg Neutrophils % Seg Neuts % (Manual) Lymphocytes % (Manual) Nucleated RBC % Seg Neutrophils # Seg Neutrophils # Man Lymphocytes # (Manual) Monocytes # (Manual) PT INR ABG pH POC ABG pCO2 POC ABG pO2 ABG pO2 ABG HCO3 ABG O2 Saturation ABG Base Excess ABG Hemoglobin ABG Oxyhemoglobin ABG Sodium ABG Potassium ABG Chloride ABG Glucose Oxyhemoglobin Carboxyhemoglobin Sodium 148 H Potassium Chloride 118.2 H Carbon Dioxide BUN 32 H Creatinine 0.4 L Glucose 153 H POC Glucose 140 H Lactic Acid Calcium 6.4 L Phosphorus 0.90 L* D Magnesium Total Creatine Kinase Troponin T Total Protein 5.0 L Albumin 1.4 L Triglycerides LDL Cholesterol Direct HDL Cholesterol Arterial Blood Glucose Arterial Blood Ionized Calcium Urine pH Urine WBC (Auto) Vancomycin Trough Salicylates Acetaminophen Crossmatch 11/06/20 11/06/20 11/06/20 11:32 17:37 23:19 WBC RBC Hgb Hct MCV MCH MCHC RDW Plt Count Lymph % (Auto) Seg Neutrophils % Seg Neuts % (Manual) Lymphocytes % (Manual) Nucleated RBC % Seg Neutrophils # Seg Neutrophils # Man Lymphocytes # (Manual) Monocytes # (Manual) PT INR ABG pH POC ABG pCO2 POC ABG pO2 ABG pO2 ABG HCO3 ABG O2 Saturation ABG Base Excess ABG Hemoglobin ABG Oxyhemoglobin ABG Sodium ABG Potassium ABG Chloride ABG Glucose Oxyhemoglobin Carboxyhemoglobin Sodium Potassium Chloride Carbon Dioxide BUN Creatinine Glucose POC Glucose 132 H 133 H 145 H Lactic Acid Calcium Phosphorus Magnesium Total Creatine Kinase Troponin T Total Protein Albumin Triglycerides LDL Cholesterol Direct HDL Cholesterol Arterial Blood Glucose Arterial Blood Ionized Calcium Urine pH Urine WBC (Auto) Vancomycin Trough Salicylates Acetaminophen Crossmatch 11/07/20 11/07/20 11/07/20 12:55 16:45 16:45 WBC 12.0 H RBC 3.63 L Hgb 11.4 L D Hct MCV 104 H MCH MCHC 30 L RDW 18.0 H Plt Count 133 L Lymph % (Auto) Seg Neutrophils % Seg Neuts % (Manual) Lymphocytes % (Manual) Nucleated RBC % Seg Neutrophils # Seg Neutrophils # Man Lymphocytes # (Manual) Monocytes # (Manual) PT INR ABG pH POC ABG pCO2 POC ABG pO2 ABG pO2 ABG HCO3 ABG O2 Saturation ABG Base Excess ABG Hemoglobin 7.7 L ABG Oxyhemoglobin ABG Sodium ABG Potassium ABG Chloride ABG Glucose Oxyhemoglobin 94.9 L Carboxyhemoglobin Sodium 149 H Potassium Chloride 119.8 H Carbon Dioxide BUN 31 H Creatinine 0.4 L Glucose 130 H POC Glucose Lactic Acid Calcium 6.5 L Phosphorus Magnesium Total Creatine Kinase Troponin T Total Protein Albumin Triglycerides LDL Cholesterol Direct HDL Cholesterol Arterial Blood Glucose Arterial Blood Ionized Calcium Urine pH Urine WBC (Auto) Vancomycin Trough Salicylates Acetaminophen Crossmatch 11/07/20 11/08/20 11/08/20 17:23 00:12 06:11 WBC RBC Hgb Hct MCV MCH MCHC RDW Plt Count Lymph % (Auto) Seg Neutrophils % Seg Neuts % (Manual) Lymphocytes % (Manual) Nucleated RBC % Seg Neutrophils # Seg Neutrophils # Man Lymphocytes # (Manual) Monocytes # (Manual) PT INR ABG pH POC ABG pCO2 POC ABG pO2 ABG pO2 ABG HCO3 ABG O2 Saturation ABG Base Excess ABG Hemoglobin ABG Oxyhemoglobin ABG Sodium ABG Potassium ABG Chloride ABG Glucose Oxyhemoglobin Carboxyhemoglobin Sodium Potassium Chloride Carbon Dioxide BUN Creatinine Glucose POC Glucose 115 H 129 H 109 H Lactic Acid Calcium Phosphorus Magnesium Total Creatine Kinase Troponin T Total Protein Albumin Triglycerides LDL Cholesterol Direct HDL Cholesterol Arterial Blood Glucose Arterial Blood Ionized Calcium Urine pH Urine WBC (Auto) Vancomycin Trough Salicylates Acetaminophen Crossmatch 11/08/20 11/08/20 11/08/20 17:36 23:49 23:58 WBC RBC Hgb Hct MCV MCH MCHC RDW Plt Count Lymph % (Auto) Seg Neutrophils % Seg Neuts % (Manual) Lymphocytes % (Manual) Nucleated RBC % Seg Neutrophils # Seg Neutrophils # Man Lymphocytes # (Manual) Monocytes # (Manual) PT INR ABG pH POC ABG pCO2 POC ABG pO2 ABG pO2 ABG HCO3 ABG O2 Saturation ABG Base Excess ABG Hemoglobin ABG Oxyhemoglobin ABG Sodium ABG Potassium ABG Chloride ABG Glucose Oxyhemoglobin Carboxyhemoglobin Sodium Potassium Chloride Carbon Dioxide BUN Creatinine Glucose 138 H POC Glucose 38 L 36 L Lactic Acid Calcium Phosphorus Magnesium Total Creatine Kinase Troponin T Total Protein Albumin Triglycerides LDL Cholesterol Direct HDL Cholesterol Arterial Blood Glucose Arterial Blood Ionized Calcium Urine pH Urine WBC (Auto) Vancomycin Trough Salicylates Acetaminophen Crossmatch 11/09/20 11/09/20 11/09/20 05:33 06:00 06:00 WBC 13.1 H RBC 2.35 L Hgb 7.6 L D Hct 22.9 L D MCV 97 H MCH MCHC RDW 16.8 H Plt Count Lymph % (Auto) 9.1 L Seg Neutrophils % 84.8 H Seg Neuts % (Manual) Lymphocytes % (Manual) Nucleated RBC % Seg Neutrophils # 11.1 H Seg Neutrophils # Man Lymphocytes # (Manual) Monocytes # (Manual) PT INR ABG pH POC ABG pCO2 POC ABG pO2 ABG pO2 ABG HCO3 ABG O2 Saturation ABG Base Excess ABG Hemoglobin ABG Oxyhemoglobin ABG Sodium ABG Potassium ABG Chloride ABG Glucose Oxyhemoglobin Carboxyhemoglobin Sodium 150 H Potassium 3.4 L D Chloride 119.2 H Carbon Dioxide BUN 30 H Creatinine 0.4 L Glucose 137 H POC Glucose 58 L Lactic Acid Calcium 7.2 L Phosphorus Magnesium Total Creatine Kinase Troponin T Total Protein Albumin Triglycerides LDL Cholesterol Direct HDL Cholesterol Arterial Blood Glucose Arterial Blood Ionized Calcium Urine pH Urine WBC (Auto) Vancomycin Trough Salicylates Acetaminophen Crossmatch 11/09/20 11/09/20 11/10/20 06:08 22:16 13:46 WBC 16.1 H RBC 2.52 L Hgb 8.1 L Hct 25.2 L MCV 100 H MCH MCHC RDW 18.2 H Plt Count Lymph % (Auto) Seg Neutrophils % Seg Neuts % (Manual) 90.0 H Lymphocytes % (Manual) 3.0 L Nucleated RBC % Seg Neutrophils # Seg Neutrophils # Man 14.5 H Lymphocytes # (Manual) 0.5 L Monocytes # (Manual) 1.1 H PT INR ABG pH POC ABG pCO2 POC ABG pO2 ABG pO2 ABG HCO3 ABG O2 Saturation ABG Base Excess ABG Hemoglobin ABG Oxyhemoglobin ABG Sodium ABG Potassium ABG Chloride ABG Glucose Oxyhemoglobin Carboxyhemoglobin Sodium Potassium Chloride Carbon Dioxide BUN Creatinine Glucose POC Glucose 122 H 120 H Lactic Acid Calcium Phosphorus Magnesium Total Creatine Kinase Troponin T Total Protein Albumin Triglycerides LDL Cholesterol Direct HDL Cholesterol Arterial Blood Glucose Arterial Blood Ionized Calcium Urine pH Urine WBC (Auto) Vancomycin Trough Salicylates Acetaminophen Crossmatch 11/10/20 11/10/20 11/11/20 13:46 15:59 11:43 WBC RBC Hgb Hct MCV MCH MCHC RDW Plt Count Lymph % (Auto) Seg Neutrophils % Seg Neuts % (Manual) Lymphocytes % (Manual) Nucleated RBC % Seg Neutrophils # Seg Neutrophils # Man Lymphocytes # (Manual) Monocytes # (Manual) PT INR ABG pH POC ABG pCO2 POC ABG pO2 ABG pO2 ABG HCO3 ABG O2 Saturation ABG Base Excess ABG Hemoglobin ABG Oxyhemoglobin ABG Sodium ABG Potassium ABG Chloride ABG Glucose Oxyhemoglobin Carboxyhemoglobin Sodium 153 H Potassium Chloride 120.6 H Carbon Dioxide BUN 27 H Creatinine 0.3 L Glucose 112 H POC Glucose 40 L 124 H Lactic Acid Calcium 6.8 L Phosphorus Magnesium Total Creatine Kinase Troponin T Total Protein Albumin Triglycerides LDL Cholesterol Direct HDL Cholesterol Arterial Blood Glucose Arterial Blood Ionized Calcium Urine pH Urine WBC (Auto) Vancomycin Trough Salicylates Acetaminophen Crossmatch 11/11/20 11/11/20 11/11/20 14:38 14:38 14:38 WBC 13.8 H RBC 2.43 L Hgb 7.6 L Hct 24.0 L MCV 99 H MCH MCHC RDW 18.0 H Plt Count Lymph % (Auto) Seg Neutrophils % Seg Neuts % (Manual) Lymphocytes % (Manual) Nucleated RBC % Seg Neutrophils # Seg Neutrophils # Man Lymphocytes # (Manual) Monocytes # (Manual) PT 15.0 H INR 1.18 H ABG pH POC ABG pCO2 POC ABG pO2 ABG pO2 ABG HCO3 ABG O2 Saturation ABG Base Excess ABG Hemoglobin ABG Oxyhemoglobin ABG Sodium ABG Potassium ABG Chloride ABG Glucose Oxyhemoglobin Carboxyhemoglobin Sodium 154 H Potassium 3.1 L D Chloride 122.1 H Carbon Dioxide BUN 26 H Creatinine 0.4 L Glucose 140 H POC Glucose Lactic Acid Calcium 7.3 L Phosphorus Magnesium Total Creatine Kinase Troponin T Total Protein Albumin Triglycerides LDL Cholesterol Direct HDL Cholesterol Arterial Blood Glucose Arterial Blood Ionized Calcium Urine pH Urine WBC (Auto) Vancomycin Trough Salicylates Acetaminophen Crossmatch 11/11/20 11/11/20 11/12/20 18:39 18:42 00:03 WBC RBC Hgb Hct MCV MCH MCHC RDW Plt Count Lymph % (Auto) Seg Neutrophils % Seg Neuts % (Manual) Lymphocytes % (Manual) Nucleated RBC % Seg Neutrophils # Seg Neutrophils # Man Lymphocytes # (Manual) Monocytes # (Manual) PT INR ABG pH POC ABG pCO2 POC ABG pO2 ABG pO2 ABG HCO3 ABG O2 Saturation ABG Base Excess ABG Hemoglobin ABG Oxyhemoglobin ABG Sodium ABG Potassium ABG Chloride ABG Glucose Oxyhemoglobin Carboxyhemoglobin Sodium Potassium Chloride Carbon Dioxide BUN Creatinine Glucose POC Glucose 45 L 66 L 108 H Lactic Acid Calcium Phosphorus Magnesium Total Creatine Kinase Troponin T Total Protein Albumin Triglycerides LDL Cholesterol Direct HDL Cholesterol Arterial Blood Glucose Arterial Blood Ionized Calcium Urine pH Urine WBC (Auto) Vancomycin Trough Salicylates Acetaminophen Crossmatch 11/12/20 11/12/20 11/12/20 05:44 08:33 08:33 WBC 13.4 H RBC 2.35 L Hgb 7.5 L Hct 23.7 L MCV 101 H MCH MCHC RDW 19.7 H Plt Count Lymph % (Auto) Seg Neutrophils % Seg Neuts % (Manual) Lymphocytes % (Manual) Nucleated RBC % Seg Neutrophils # Seg Neutrophils # Man Lymphocytes # (Manual) Monocytes # (Manual) PT INR ABG pH POC ABG pCO2 POC ABG pO2 ABG pO2 ABG HCO3 ABG O2 Saturation ABG Base Excess ABG Hemoglobin ABG Oxyhemoglobin ABG Sodium ABG Potassium ABG Chloride ABG Glucose Oxyhemoglobin Carboxyhemoglobin Sodium 154 H Potassium 2.9 L* Chloride 121.4 H Carbon Dioxide BUN 26 H Creatinine 0.4 L Glucose 153 H POC Glucose 114 H Lactic Acid Calcium 7.3 L Phosphorus Magnesium Total Creatine Kinase Troponin T Total Protein Albumin Triglycerides LDL Cholesterol Direct HDL Cholesterol Arterial Blood Glucose Arterial Blood Ionized Calcium Urine pH Urine WBC (Auto) Vancomycin Trough Salicylates Acetaminophen Crossmatch 11/12/20 11/12/20 11/13/20 11:38 17:17 05:28 WBC RBC Hgb Hct MCV MCH MCHC RDW Plt Count Lymph % (Auto) Seg Neutrophils % Seg Neuts % (Manual) Lymphocytes % (Manual) Nucleated RBC % Seg Neutrophils # Seg Neutrophils # Man Lymphocytes # (Manual) Monocytes # (Manual) PT INR ABG pH POC ABG pCO2 51.4 H POC ABG pO2 41.7 L ABG pO2 ABG HCO3 ABG O2 Saturation ABG Base Excess ABG Hemoglobin 9.1 L ABG Oxyhemoglobin 72.2 L ABG Sodium 151.1 H ABG Potassium 3.2 L ABG Chloride 122.0 H ABG Glucose 191 H Oxyhemoglobin Carboxyhemoglobin Sodium Potassium Chloride Carbon Dioxide BUN Creatinine Glucose POC Glucose 125 H 127 H Lactic Acid Calcium Phosphorus Magnesium Total Creatine Kinase Troponin T Total Protein Albumin Triglycerides LDL Cholesterol Direct HDL Cholesterol Arterial Blood Glucose 191 H Arterial Blood Ionized Calcium Urine pH Urine WBC (Auto) Vancomycin Trough Salicylates Acetaminophen Crossmatch 11/13/20 11/13/20 11/13/20 10:46 23:15 23:15 WBC 12.2 H RBC 2.41 L Hgb 7.7 L Hct 24.5 L MCV 102 H MCH MCHC RDW 23.0 H Plt Count Lymph % (Auto) Seg Neutrophils % Seg Neuts % (Manual) Lymphocytes % (Manual) Nucleated RBC % Seg Neutrophils # Seg Neutrophils # Man Lymphocytes # (Manual) Monocytes # (Manual) PT INR ABG pH POC ABG pCO2 POC ABG pO2 ABG pO2 ABG HCO3 ABG O2 Saturation ABG Base Excess ABG Hemoglobin ABG Oxyhemoglobin ABG Sodium ABG Potassium ABG Chloride ABG Glucose Oxyhemoglobin Carboxyhemoglobin Sodium Potassium Chloride Carbon Dioxide BUN Creatinine Glucose POC Glucose 153 H Lactic Acid Calcium Phosphorus Magnesium Total Creatine Kinase Troponin T 0.123 H* Total Protein Albumin Triglycerides LDL Cholesterol Direct HDL Cholesterol Arterial Blood Glucose Arterial Blood Ionized Calcium Urine pH Urine WBC (Auto) Vancomycin Trough Salicylates Acetaminophen Crossmatch 11/13/20 11/13/20 11/14/20 23:15 Unknown 05:26 WBC RBC Hgb Hct MCV MCH MCHC RDW Plt Count Lymph % (Auto) Seg Neutrophils % Seg Neuts % (Manual) Lymphocytes % (Manual) Nucleated RBC % Seg Neutrophils # Seg Neutrophils # Man Lymphocytes # (Manual) Monocytes # (Manual) PT INR ABG pH 7.295 L POC ABG pCO2 56.0 H POC ABG pO2 49.1 L ABG pO2 ABG HCO3 ABG O2 Saturation ABG Base Excess ABG Hemoglobin 8.3 L ABG Oxyhemoglobin 77.1 L ABG Sodium 150.5 H ABG Potassium 3.3 L ABG Chloride 121.0 H ABG Glucose 187 H Oxyhemoglobin Carboxyhemoglobin Sodium 152 H Potassium 3.3 L Chloride 117.8 H Carbon Dioxide BUN 25 H Creatinine 0.4 L Glucose 123 H POC Glucose 46 L Lactic Acid Calcium 7.5 L Phosphorus Magnesium Total Creatine Kinase Troponin T Total Protein Albumin Triglycerides LDL Cholesterol Direct HDL Cholesterol Arterial Blood Glucose 187 H Arterial Blood Ionized Calcium Urine pH Urine WBC (Auto) Vancomycin Trough Salicylates Acetaminophen Crossmatch 11/14/20 11/14/20 11/14/20 06:26 22:26 22:26 WBC RBC 2.75 L Hgb 9.0 L Hct 27.8 L MCV 101 H MCH 33 H MCHC RDW 22.8 H Plt Count Lymph % (Auto) Seg Neutrophils % Seg Neuts % (Manual) Lymphocytes % (Manual) Nucleated RBC % Seg Neutrophils # Seg Neutrophils # Man Lymphocytes # (Manual) Monocytes # (Manual) PT INR ABG pH POC ABG pCO2 POC ABG pO2 ABG pO2 ABG HCO3 ABG O2 Saturation ABG Base Excess ABG Hemoglobin ABG Oxyhemoglobin ABG Sodium ABG Potassium ABG Chloride ABG Glucose Oxyhemoglobin Carboxyhemoglobin Sodium 147 H Potassium 3.3 L Chloride 114.3 H Carbon Dioxide BUN 23 H Creatinine 0.3 L Glucose 209 H POC Glucose 135 H Lactic Acid Calcium 7.4 L Phosphorus Magnesium Total Creatine Kinase Troponin T Total Protein Albumin Triglycerides LDL Cholesterol Direct HDL Cholesterol Arterial Blood Glucose Arterial Blood Ionized Calcium Urine pH Urine WBC (Auto) Vancomycin Trough Salicylates Acetaminophen Crossmatch 11/14/20 11/15/20 11/15/20 23:22 04:28 05:57 WBC RBC Hgb Hct MCV MCH MCHC RDW Plt Count Lymph % (Auto) Seg Neutrophils % Seg Neuts % (Manual) Lymphocytes % (Manual) Nucleated RBC % Seg Neutrophils # Seg Neutrophils # Man Lymphocytes # (Manual) Monocytes # (Manual) PT INR ABG pH POC ABG pCO2 POC ABG pO2 ABG pO2 ABG HCO3 ABG O2 Saturation ABG Base Excess ABG Hemoglobin ABG Oxyhemoglobin ABG Sodium ABG Potassium ABG Chloride ABG Glucose Oxyhemoglobin Carboxyhemoglobin Sodium 152 H Potassium Chloride 118.1 H Carbon Dioxide BUN 22 H Creatinine 0.3 L Glucose 190 H POC Glucose 136 H 151 H Lactic Acid Calcium 7.5 L Phosphorus Magnesium Total Creatine Kinase Troponin T Total Protein Albumin Triglycerides LDL Cholesterol Direct HDL Cholesterol Arterial Blood Glucose Arterial Blood Ionized Calcium Urine pH Urine WBC (Auto) Vancomycin Trough Salicylates Acetaminophen Crossmatch 11/15/20 11/15/20 11/15/20 11:40 16:56 21:53 WBC RBC Hgb Hct MCV MCH MCHC RDW Plt Count Lymph % (Auto) Seg Neutrophils % Seg Neuts % (Manual) Lymphocytes % (Manual) Nucleated RBC % Seg Neutrophils # Seg Neutrophils # Man Lymphocytes # (Manual) Monocytes # (Manual) PT INR ABG pH 7.457 H POC ABG pCO2 POC ABG pO2 ABG pO2 48.3 L ABG HCO3 26.1 H ABG O2 Saturation 82.9 L ABG Base Excess ABG Hemoglobin 9.7 L ABG Oxyhemoglobin ABG Sodium ABG Potassium ABG Chloride ABG Glucose Oxyhemoglobin 81.0 L Carboxyhemoglobin Sodium Potassium Chloride Carbon Dioxide BUN Creatinine Glucose POC Glucose 129 H 115 H Lactic Acid Calcium Phosphorus Magnesium Total Creatine Kinase Troponin T Total Protein Albumin Triglycerides LDL Cholesterol Direct HDL Cholesterol Arterial Blood Glucose Arterial Blood Ionized Calcium Urine pH Urine WBC (Auto) Vancomycin Trough Salicylates Acetaminophen Crossmatch 11/15/20 11/16/20 11/16/20 23:12 00:07 00:09 WBC RBC Hgb Hct MCV MCH MCHC RDW Plt Count Lymph % (Auto) Seg Neutrophils % Seg Neuts % (Manual) Lymphocytes % (Manual) Nucleated RBC % Seg Neutrophils # Seg Neutrophils # Man Lymphocytes # (Manual) Monocytes # (Manual) PT INR ABG pH POC ABG pCO2 POC ABG pO2 ABG pO2 95.1 H ABG HCO3 26.6 H ABG O2 Saturation ABG Base Excess ABG Hemoglobin 7.5 L ABG Oxyhemoglobin ABG Sodium ABG Potassium ABG Chloride ABG Glucose Oxyhemoglobin Carboxyhemoglobin Sodium Potassium Chloride Carbon Dioxide BUN Creatinine Glucose POC Glucose 13 L 153 H Lactic Acid Calcium Phosphorus Magnesium Total Creatine Kinase Troponin T Total Protein Albumin Triglycerides LDL Cholesterol Direct HDL Cholesterol Arterial Blood Glucose Arterial Blood Ionized Calcium Urine pH Urine WBC (Auto) Vancomycin Trough Salicylates Acetaminophen Crossmatch 0411/16/20 11/16/20 03:43 04:00 04:00 WBC RBC 2.33 L Hgb 7.7 L Hct 24.5 L MCV 105 H MCH 33 H MCHC 31 L RDW 22.9 H Plt Count Lymph % (Auto) Seg Neutrophils % Seg Neuts % (Manual) Lymphocytes % (Manual) Nucleated RBC % Seg Neutrophils # Seg Neutrophils # Man Lymphocytes # (Manual) Monocytes # (Manual) PT INR ABG pH 7.348 L POC ABG pCO2 POC ABG pO2 ABG pO2 91.6 H ABG HCO3 26.3 H ABG O2 Saturation ABG Base Excess ABG Hemoglobin 7.3 L ABG Oxyhemoglobin ABG Sodium ABG Potassium ABG Chloride ABG Glucose Oxyhemoglobin Carboxyhemoglobin Sodium 148 H Potassium 3.5 L Chloride 115.9 H Carbon Dioxide BUN Creatinine 0.4 L Glucose 195 H POC Glucose Lactic Acid Calcium 7.6 L Phosphorus Magnesium Total Creatine Kinase Troponin T Total Protein Albumin Triglycerides LDL Cholesterol Direct HDL Cholesterol Arterial Blood Glucose Arterial Blood Ionized Calcium Urine pH Urine WBC (Auto) Vancomycin Trough Salicylates Acetaminophen Crossmatch 11/16/20 11/16/20 11/16/20 05:16 07:40 12:10 WBC RBC Hgb Hct MCV MCH MCHC RDW Plt Count Lymph % (Auto) Seg Neutrophils % Seg Neuts % (Manual) Lymphocytes % (Manual) Nucleated RBC % Seg Neutrophils # Seg Neutrophils # Man Lymphocytes # (Manual) Monocytes # (Manual) PT INR ABG pH POC ABG pCO2 POC ABG pO2 ABG pO2 ABG HCO3 ABG O2 Saturation ABG Base Excess ABG Hemoglobin ABG Oxyhemoglobin ABG Sodium ABG Potassium ABG Chloride ABG Glucose Oxyhemoglobin Carboxyhemoglobin Sodium Potassium Chloride Carbon Dioxide BUN Creatinine Glucose POC Glucose 61 L 122 H 140 H Lactic Acid Calcium Phosphorus Magnesium Total Creatine Kinase Troponin T Total Protein Albumin Triglycerides LDL Cholesterol Direct HDL Cholesterol Arterial Blood Glucose Arterial Blood Ionized Calcium Urine pH Urine WBC (Auto) Vancomycin Trough Salicylates Acetaminophen Crossmatch 11/16/20 11/16/20 11/17/20 17:14 23:40 04:30 WBC RBC Hgb Hct MCV MCH MCHC RDW Plt Count Lymph % (Auto) Seg Neutrophils % Seg Neuts % (Manual) Lymphocytes % (Manual) Nucleated RBC % Seg Neutrophils # Seg Neutrophils # Man Lymphocytes # (Manual) Monocytes # (Manual) PT INR ABG pH 7.470 H POC ABG pCO2 POC ABG pO2 75.4 L ABG pO2 ABG HCO3 ABG O2 Saturation ABG Base Excess ABG Hemoglobin 7 L ABG Oxyhemoglobin ABG Sodium ABG Potassium ABG Chloride 116.0 H ABG Glucose 161 H Oxyhemoglobin Carboxyhemoglobin Sodium Potassium Chloride Carbon Dioxide BUN Creatinine Glucose POC Glucose 139 H 151 H Lactic Acid Calcium Phosphorus Magnesium Total Creatine Kinase Troponin T Total Protein Albumin Triglycerides LDL Cholesterol Direct HDL Cholesterol Arterial Blood Glucose 161 H Arterial Blood Ionized Calcium Urine pH Urine WBC (Auto) Vancomycin Trough Salicylates Acetaminophen Crossmatch 11/17/20 11/17/20 11/17/20 09:50 09:50 11:10 WBC RBC 2.02 L Hgb 6.6 L Hct 20.2 L MCV 100 H MCH 33 H MCHC RDW 22.4 H Plt Count Lymph % (Auto) Seg Neutrophils % Seg Neuts % (Manual) Lymphocytes % (Manual) Nucleated RBC % Seg Neutrophils # Seg Neutrophils # Man Lymphocytes # (Manual) Monocytes # (Manual) PT INR ABG pH POC ABG pCO2 POC ABG pO2 ABG pO2 ABG HCO3 ABG O2 Saturation ABG Base Excess ABG Hemoglobin ABG Oxyhemoglobin ABG Sodium ABG Potassium ABG Chloride ABG Glucose Oxyhemoglobin Carboxyhemoglobin Sodium Potassium Chloride 111.8 H Carbon Dioxide BUN 23 H Creatinine 0.4 L Glucose 142 H POC Glucose Lactic Acid Calcium 7.3 L Phosphorus Magnesium Total Creatine Kinase Troponin T Total Protein Albumin Triglycerides LDL Cholesterol Direct HDL Cholesterol Arterial Blood Glucose Arterial Blood Ionized Calcium Urine pH Urine WBC (Auto) Vancomycin Trough Salicylates Acetaminophen Crossmatch See Detail 11/17/20 11/17/20 11/17/20 11:52 11:57 23:22 WBC RBC Hgb Hct MCV MCH MCHC RDW Plt Count Lymph % (Auto) Seg Neutrophils % Seg Neuts % (Manual) Lymphocytes % (Manual) Nucleated RBC % Seg Neutrophils # Seg Neutrophils # Man Lymphocytes # (Manual) Monocytes # (Manual) PT INR ABG pH POC ABG pCO2 POC ABG pO2 ABG pO2 ABG HCO3 ABG O2 Saturation ABG Base Excess ABG Hemoglobin ABG Oxyhemoglobin ABG Sodium ABG Potassium ABG Chloride ABG Glucose Oxyhemoglobin Carboxyhemoglobin Sodium Potassium Chloride Carbon Dioxide BUN Creatinine Glucose POC Glucose 42 L 114 H 63 L Lactic Acid Calcium Phosphorus Magnesium Total Creatine Kinase Troponin T Total Protein Albumin Triglycerides LDL Cholesterol Direct HDL Cholesterol Arterial Blood Glucose Arterial Blood Ionized Calcium Urine pH Urine WBC (Auto) Vancomycin Trough Salicylates Acetaminophen Crossmatch 11/17/20 11/18/20 11/18/20 23:27 04:06 04:45 WBC RBC 2.36 L Hgb 7.4 L Hct 23.4 L MCV 99 H MCH MCHC RDW 21.6 H Plt Count Lymph % (Auto) Seg Neutrophils % Seg Neuts % (Manual) Lymphocytes % (Manual) Nucleated RBC % Seg Neutrophils # Seg Neutrophils # Man Lymphocytes # (Manual) Monocytes # (Manual) PT INR ABG pH POC ABG pCO2 POC ABG pO2 67.7 L ABG pO2 ABG HCO3 ABG O2 Saturation ABG Base Excess ABG Hemoglobin 8.3 L ABG Oxyhemoglobin ABG Sodium ABG Potassium ABG Chloride 112.0 H ABG Glucose 143 H Oxyhemoglobin Carboxyhemoglobin Sodium Potassium Chloride Carbon Dioxide BUN Creatinine Glucose POC Glucose 124 H Lactic Acid Calcium Phosphorus Magnesium Total Creatine Kinase Troponin T Total Protein Albumin Triglycerides LDL Cholesterol Direct HDL Cholesterol Arterial Blood Glucose 143 H Arterial Blood Ionized Calcium 4.5 L Urine pH Urine WBC (Auto) Vancomycin Trough Salicylates Acetaminophen Crossmatch 11/18/20 11/18/20 11/18/20 04:45 05:56 23:46 WBC RBC Hgb Hct MCV MCH MCHC RDW Plt Count Lymph % (Auto) Seg Neutrophils % Seg Neuts % (Manual) Lymphocytes % (Manual) Nucleated RBC % Seg Neutrophils # Seg Neutrophils # Man Lymphocytes # (Manual) Monocytes # (Manual) PT INR ABG pH POC ABG pCO2 POC ABG pO2 ABG pO2 ABG HCO3 ABG O2 Saturation ABG Base Excess ABG Hemoglobin ABG Oxyhemoglobin ABG Sodium ABG Potassium ABG Chloride ABG Glucose Oxyhemoglobin Carboxyhemoglobin Sodium Potassium Chloride 107.9 H Carbon Dioxide BUN 23 H Creatinine 0.4 L Glucose 139 H POC Glucose 133 H 66 L Lactic Acid Calcium 7.6 L Phosphorus Magnesium Total Creatine Kinase Troponin T Total Protein Albumin Triglycerides LDL Cholesterol Direct HDL Cholesterol Arterial Blood Glucose Arterial Blood Ionized Calcium Urine pH Urine WBC (Auto) Vancomycin Trough Salicylates Acetaminophen Crossmatch 11/18/20 11/19/20 11/19/20 23:52 05:48 06:36 WBC RBC Hgb Hct MCV MCH MCHC RDW Plt Count Lymph % (Auto) Seg Neutrophils % Seg Neuts % (Manual) Lymphocytes % (Manual) Nucleated RBC % Seg Neutrophils # Seg Neutrophils # Man Lymphocytes # (Manual) Monocytes # (Manual) PT INR ABG pH POC ABG pCO2 POC ABG pO2 ABG pO2 ABG HCO3 ABG O2 Saturation ABG Base Excess ABG Hemoglobin ABG Oxyhemoglobin ABG Sodium ABG Potassium ABG Chloride ABG Glucose Oxyhemoglobin Carboxyhemoglobin Sodium Potassium Chloride Carbon Dioxide BUN 21 H Creatinine 0.4 L Glucose 119 H POC Glucose 118 H 108 H Lactic Acid Calcium 7.8 L Phosphorus Magnesium Total Creatine Kinase Troponin T Total Protein Albumin Triglycerides LDL Cholesterol Direct HDL Cholesterol Arterial Blood Glucose Arterial Blood Ionized Calcium Urine pH Urine WBC (Auto) Vancomycin Trough Salicylates Acetaminophen Crossmatch 11/19/20 11/19/20 11/19/20 06:36 06:36 18:15 WBC RBC 2.79 L Hgb 9.0 L Hct 27.8 L MCV 100 H MCH MCHC RDW 20.7 H Plt Count Lymph % (Auto) Seg Neutrophils % Seg Neuts % (Manual) Lymphocytes % (Manual) Nucleated RBC % Seg Neutrophils # Seg Neutrophils # Man Lymphocytes # (Manual) Monocytes # (Manual) PT INR 1.15 H ABG pH POC ABG pCO2 POC ABG pO2 ABG pO2 ABG HCO3 ABG O2 Saturation ABG Base Excess ABG Hemoglobin ABG Oxyhemoglobin ABG Sodium ABG Potassium ABG Chloride ABG Glucose Oxyhemoglobin Carboxyhemoglobin Sodium Potassium Chloride Carbon Dioxide BUN Creatinine Glucose POC Glucose 115 H Lactic Acid Calcium Phosphorus Magnesium Total Creatine Kinase Troponin T Total Protein Albumin Triglycerides LDL Cholesterol Direct HDL Cholesterol Arterial Blood Glucose Arterial Blood Ionized Calcium Urine pH Urine WBC (Auto) Vancomycin Trough Salicylates Acetaminophen Crossmatch 11/19/20 11/19/20 11/20/20 23:27 Unknown 04:56 WBC RBC Hgb Hct MCV MCH MCHC RDW Plt Count Lymph % (Auto) Seg Neutrophils % Seg Neuts % (Manual) Lymphocytes % (Manual) Nucleated RBC % Seg Neutrophils # Seg Neutrophils # Man Lymphocytes # (Manual) Monocytes # (Manual) PT INR ABG pH 7.457 H POC ABG pCO2 POC ABG pO2 57.4 L ABG pO2 72.4 L ABG HCO3 26.9 H ABG O2 Saturation ABG Base Excess ABG Hemoglobin 8.5 L 9.6 L ABG Oxyhemoglobin 90.1 L ABG Sodium ABG Potassium ABG Chloride 109.0 H ABG Glucose 142 H Oxyhemoglobin 94.1 L Carboxyhemoglobin Sodium Potassium Chloride Carbon Dioxide BUN Creatinine Glucose POC Glucose 129 H Lactic Acid Calcium Phosphorus Magnesium Total Creatine Kinase Troponin T Total Protein Albumin Triglycerides LDL Cholesterol Direct HDL Cholesterol Arterial Blood Glucose 142 H Arterial Blood Ionized Calcium Urine pH Urine WBC (Auto) Vancomycin Trough Salicylates Acetaminophen Crossmatch 11/20/20 11/20/20 11/20/20 05:07 05:45 05:45 WBC 11.7 H RBC 2.74 L Hgb 8.9 L Hct 26.3 L MCV 96 H MCH 33 H MCHC RDW 18.6 H Plt Count Lymph % (Auto) Seg Neutrophils % Seg Neuts % (Manual) Lymphocytes % (Manual) Nucleated RBC % Seg Neutrophils # Seg Neutrophils # Man Lymphocytes # (Manual) Monocytes # (Manual) PT INR ABG pH POC ABG pCO2 POC ABG pO2 ABG pO2 ABG HCO3 ABG O2 Saturation ABG Base Excess ABG Hemoglobin ABG Oxyhemoglobin ABG Sodium ABG Potassium ABG Chloride ABG Glucose Oxyhemoglobin Carboxyhemoglobin Sodium Potassium Chloride Carbon Dioxide 31 H BUN Creatinine 0.4 L Glucose 127 H POC Glucose 129 H Lactic Acid Calcium 8.0 L Phosphorus Magnesium Total Creatine Kinase Troponin T Total Protein Albumin Triglycerides LDL Cholesterol Direct HDL Cholesterol Arterial Blood Glucose Arterial Blood Ionized Calcium Urine pH Urine WBC (Auto) Vancomycin Trough Salicylates Acetaminophen Crossmatch 11/20/20 11/20/20 11/21/20 12:02 17:52 00:02 WBC RBC Hgb Hct MCV MCH MCHC RDW Plt Count Lymph % (Auto) Seg Neutrophils % Seg Neuts % (Manual) Lymphocytes % (Manual) Nucleated RBC % Seg Neutrophils # Seg Neutrophils # Man Lymphocytes # (Manual) Monocytes # (Manual) PT INR ABG pH POC ABG pCO2 POC ABG pO2 ABG pO2 ABG HCO3 ABG O2 Saturation ABG Base Excess ABG Hemoglobin ABG Oxyhemoglobin ABG Sodium ABG Potassium ABG Chloride ABG Glucose Oxyhemoglobin Carboxyhemoglobin Sodium Potassium Chloride Carbon Dioxide BUN Creatinine Glucose POC Glucose 134 H 115 H 116 H Lactic Acid Calcium Phosphorus Magnesium Total Creatine Kinase Troponin T Total Protein Albumin Triglycerides LDL Cholesterol Direct HDL Cholesterol Arterial Blood Glucose Arterial Blood Ionized Calcium Urine pH Urine WBC (Auto) Vancomycin Trough Salicylates Acetaminophen Crossmatch 11/21/20 11/21/2011/21/21 03:23 04:00 05:14 WBC RBC Hgb Hct MCV MCH MCHC RDW Plt Count Lymph % (Auto) Seg Neutrophils % Seg Neuts % (Manual) Lymphocytes % (Manual) Nucleated RBC % Seg Neutrophils # Seg Neutrophils # Man Lymphocytes # (Manual) Monocytes # (Manual) PT INR ABG pH 7.479 H POC ABG pCO2 POC ABG pO2 73.7 L ABG pO2 ABG HCO3 ABG O2 Saturation ABG Base Excess ABG Hemoglobin 9.4 L ABG Oxyhemoglobin ABG Sodium ABG Potassium ABG Chloride 108.0 H ABG Glucose 135 H Oxyhemoglobin Carboxyhemoglobin Sodium Potassium Chloride Carbon Dioxide 34 H BUN Creatinine 0.4 L Glucose 125 H POC Glucose 116 H Lactic Acid Calcium 7.9 L Phosphorus Magnesium Total Creatine Kinase Troponin T Total Protein Albumin Triglycerides LDL Cholesterol Direct HDL Cholesterol Arterial Blood Glucose 135 H Arterial Blood Ionized Calcium 4.5 L Urine pH Urine WBC (Auto) Vancomycin Trough Salicylates Acetaminophen Crossmatch 11/22/20 11/22/20 11/22/20 04:00 04:00 05:34 WBC 12.2 H RBC 2.74 L Hgb 8.7 L Hct 27.4 L MCV 100 H MCH MCHC RDW 19.2 H Plt Count Lymph % (Auto) Seg Neutrophils % Seg Neuts % (Manual) Lymphocytes % (Manual) Nucleated RBC % Seg Neutrophils # Seg Neutrophils # Man Lymphocytes # (Manual) Monocytes # (Manual) PT INR ABG pH POC ABG pCO2 POC ABG pO2 ABG pO2 ABG HCO3 ABG O2 Saturation ABG Base Excess ABG Hemoglobin ABG Oxyhemoglobin ABG Sodium ABG Potassium ABG Chloride ABG Glucose Oxyhemoglobin Carboxyhemoglobin Sodium Potassium Chloride Carbon Dioxide BUN Creatinine 0.4 L Glucose POC Glucose 58 L Lactic Acid Calcium 7.7 L Phosphorus Magnesium Total Creatine Kinase Troponin T Total Protein Albumin Triglycerides LDL Cholesterol Direct HDL Cholesterol Arterial Blood Glucose Arterial Blood Ionized Calcium Urine pH Urine WBC (Auto) Vancomycin Trough Salicylates Acetaminophen Crossmatch 11/22/20 11/23/20 11/23/20 11:48 00:15 04:25 WBC RBC Hgb Hct MCV MCH MCHC RDW Plt Count Lymph % (Auto) Seg Neutrophils % Seg Neuts % (Manual) Lymphocytes % (Manual) Nucleated RBC % Seg Neutrophils # Seg Neutrophils # Man Lymphocytes # (Manual) Monocytes # (Manual) PT INR ABG pH 7.489 H POC ABG pCO2 POC ABG pO2 74.7 L ABG pO2 ABG HCO3 ABG O2 Saturation ABG Base Excess ABG Hemoglobin 9.6 L ABG Oxyhemoglobin ABG Sodium 135.6 L ABG Potassium ABG Chloride ABG Glucose 119 H Oxyhemoglobin Carboxyhemoglobin Sodium Potassium Chloride Carbon Dioxide BUN Creatinine Glucose POC Glucose 60 L 106 H Lactic Acid Calcium Phosphorus Magnesium Total Creatine Kinase Troponin T Total Protein Albumin Triglycerides LDL Cholesterol Direct HDL Cholesterol Arterial Blood Glucose 119 H Arterial Blood Ionized Calcium 4.4 L Urine pH Urine WBC (Auto) Vancomycin Trough Salicylates Acetaminophen Crossmatch 11/23/20 11/23/20 11/23/20 05:27 10:23 10:23 WBC 11.3 H RBC 2.58 L Hgb 8.4 L Hct 24.7 L MCV 96 H MCH MCHC RDW 18.2 H Plt Count Lymph % (Auto) Seg Neutrophils % Seg Neuts % (Manual) 94.0 H Lymphocytes % (Manual) 5.0 L Nucleated RBC % Seg Neutrophils # Seg Neutrophils # Man 10.6 H Lymphocytes # (Manual) 0.6 L Monocytes # (Manual) PT INR ABG pH POC ABG pCO2 POC ABG pO2 ABG pO2 ABG HCO3 ABG O2 Saturation ABG Base Excess ABG Hemoglobin ABG Oxyhemoglobin ABG Sodium ABG Potassium ABG Chloride ABG Glucose Oxyhemoglobin Carboxyhemoglobin Sodium Potassium Chloride Carbon Dioxide BUN Creatinine 0.4 L Glucose 101 H POC Glucose 121 H Lactic Acid Calcium 7.2 L Phosphorus Magnesium Total Creatine Kinase Troponin T Total Protein Albumin Triglycerides LDL Cholesterol Direct HDL Cholesterol Arterial Blood Glucose Arterial Blood Ionized Calcium Urine pH Urine WBC (Auto) Vancomycin Trough Salicylates Acetaminophen Crossmatch 11/23/20 11/23/20 11/24/20 11:53 23:19 05:31 WBC RBC Hgb Hct MCV MCH MCHC RDW Plt Count Lymph % (Auto) Seg Neutrophils % Seg Neuts % (Manual) Lymphocytes % (Manual) Nucleated RBC % Seg Neutrophils # Seg Neutrophils # Man Lymphocytes # (Manual) Monocytes # (Manual) PT INR ABG pH POC ABG pCO2 POC ABG pO2 ABG pO2 ABG HCO3 ABG O2 Saturation ABG Base Excess ABG Hemoglobin ABG Oxyhemoglobin ABG Sodium ABG Potassium ABG Chloride ABG Glucose Oxyhemoglobin Carboxyhemoglobin Sodium Potassium Chloride Carbon Dioxide BUN Creatinine Glucose POC Glucose 112 H 120 H 132 H Lactic Acid Calcium Phosphorus Magnesium Total Creatine Kinase Troponin T Total Protein Albumin Triglycerides LDL Cholesterol Direct HDL Cholesterol Arterial Blood Glucose Arterial Blood Ionized Calcium Urine pH Urine WBC (Auto) Vancomycin Trough Salicylates Acetaminophen Crossmatch 11/24/20 11/24/20 11/24/20 11:27 16:48 23:11 WBC RBC Hgb Hct MCV MCH MCHC RDW Plt Count Lymph % (Auto) Seg Neutrophils % Seg Neuts % (Manual) Lymphocytes % (Manual) Nucleated RBC % Seg Neutrophils # Seg Neutrophils # Man Lymphocytes # (Manual) Monocytes # (Manual) PT INR ABG pH POC ABG pCO2 POC ABG pO2 ABG pO2 ABG HCO3 ABG O2 Saturation ABG Base Excess ABG Hemoglobin ABG Oxyhemoglobin ABG Sodium ABG Potassium ABG Chloride ABG Glucose Oxyhemoglobin Carboxyhemoglobin Sodium Potassium Chloride Carbon Dioxide BUN Creatinine Glucose POC Glucose 137 H 128 H 114 H Lactic Acid Calcium Phosphorus Magnesium Total Creatine Kinase Troponin T Total Protein Albumin Triglycerides LDL Cholesterol Direct HDL Cholesterol Arterial Blood Glucose Arterial Blood Ionized Calcium Urine pH Urine WBC (Auto) Vancomycin Trough Salicylates Acetaminophen Crossmatch 11/25/20 11/25/20 11/25/20 05:06 11:20 11:31 WBC 19.0 H RBC 2.28 L Hgb 7.3 L Hct 22.5 L MCV 99 H MCH MCHC RDW 18.3 H Plt Count Lymph % (Auto) Seg Neutrophils % Seg Neuts % (Manual) Lymphocytes % (Manual) Nucleated RBC % Seg Neutrophils # Seg Neutrophils # Man Lymphocytes # (Manual) Monocytes # (Manual) PT INR ABG pH POC ABG pCO2 POC ABG pO2 ABG pO2 ABG HCO3 ABG O2 Saturation ABG Base Excess ABG Hemoglobin ABG Oxyhemoglobin ABG Sodium ABG Potassium ABG Chloride ABG Glucose Oxyhemoglobin Carboxyhemoglobin Sodium Potassium Chloride Carbon Dioxide BUN Creatinine Glucose POC Glucose 125 H 106 H Lactic Acid Calcium Phosphorus Magnesium Total Creatine Kinase Troponin T Total Protein Albumin Triglycerides LDL Cholesterol Direct HDL Cholesterol Arterial Blood Glucose Arterial Blood Ionized Calcium Urine pH Urine WBC (Auto) Vancomycin Trough Salicylates Acetaminophen Crossmatch 11/25/20 16:25 WBC RBC Hgb Hct MCV MCH MCHC RDW Plt Count Lymph % (Auto) Seg Neutrophils % Seg Neuts % (Manual) Lymphocytes % (Manual) Nucleated RBC % Seg Neutrophils # Seg Neutrophils # Man Lymphocytes # (Manual) Monocytes # (Manual) PT INR ABG pH 7.480 H POC ABG pCO2 POC ABG pO2 78.1 L ABG pO2 ABG HCO3 ABG O2 Saturation ABG Base Excess ABG Hemoglobin 8.5 L ABG Oxyhemoglobin ABG Sodium ABG Potassium ABG Chloride ABG Glucose 114 H Oxyhemoglobin Carboxyhemoglobin Sodium Potassium Chloride Carbon Dioxide BUN Creatinine Glucose POC Glucose Lactic Acid Calcium Phosphorus Magnesium Total Creatine Kinase Troponin T Total Protein Albumin Triglycerides LDL Cholesterol Direct HDL Cholesterol Arterial Blood Glucose 114 H Arterial Blood Ionized Calcium 4.5 L Urine pH Urine WBC (Auto) Vancomycin Trough Salicylates Acetaminophen Crossmatch Allied health notes reviewed: nursing
[2020-11-26] MEDS: MIDODRINE 5 MG TAB PO SCH ×3 (09:29→16:07)
[2020-11-26] MEDS: AMIODARONE 200 MG TAB PO SCH ×2 (09:29→21:30)
[2020-11-26] MEDS: METOPROLOL TARTRATE 25 MG TAB PO SCH ×3 (09:30→18:08)
[2020-11-26] MEDS: FAMOTIDINE 20 MG TAB PO SCH ×2 (09:30→21:30)
[2020-11-26 09:39] LABS: Hematocrit 27.3 % (35.5-45.6); Hemoglobin 8.7 gm/dl (11.8-15.2); Mean Corpuscular HGB Conc 32 % (32-34); Mean Corpuscular Volume 97 fl (84-94); Red Blood Count 2.82 M/mm3 (3.65-5.03); Red Cell Distribution Width 17.9 % (13.2-15.2)
[2020-11-26 09:40] LABS: Platelet Count 282 K/mm3 (140-440)
[2020-11-26 10:46] LABS: BUN/Creatinine Ratio TNR; Blood Urea Nitrogen TNR mg/dL (9-20); Calcium TNR mg/dL (8.4-10.2)
[2020-11-26 10:47] LABS: Hemolysis Index TNR
--- NOTE | 2020-11-26 11:16 | Progress Note ---
Assessment and Plan Pt is s/p Trach & PEG ventilated, awake and able to follow simple commands. Tele reviewed: Afib 110-130s. No events overnight. Afib with RVR. Optimize rate control. Increase Metoprolol to 12.5mg Q6Hr. Continue Amiodarone to 200mg PO BID. Continue Midodrine 10mg PO TID. No systemic AC at this time in setting of anemia requiring PRBC tx, thrombocytopenia and sacral ulcer. Elevated Troponin Considering pt's advanced age and comorbidities will plan for conservative cardiac management. Anemia requiring transfusion Continue to hold AC in setting of anemia requiring transfusions. Acute Respiratory Failure s/p Trach. Ventilated. DVT Prophylaxis. On Lovenox DVT prophylaxis. SCDs in place. Will follow The patient has been seen in conjunction with Dr. Landa who agrees with the assessment and plan of care. - Patient Problems (1) AMS (altered mental status) Current Visit: Yes Status: Acute (2) Atrial fibrillation with RVR Current Visit: Yes Status: Acute Currently in SR with PJCs. No AC in setting of anemia. (3) Acute respiratory failure Current Visit: Yes Status: Acute (4) Bilateral pneumonia Current Visit: Yes Status: Acute (5) Sepsis Current Visit: Yes Status: Acute (6) Sepsis associated hypotension Current Visit: Yes Status: Acute Pt is requiring Levophed titration to maintain pressure (7) Sacral decubitus ulcer, stage IV Current Visit: Yes Status: Acute (8) UTI (urinary tract infection) Current Visit: Yes Status: Acute (9) FAZAL (acute kidney injury) Current Visit: Yes Status: Acute (10) Hypomagnesemia Current Visit: Yes Status: Acute (11) Anemia Current Visit: Yes Status: Acute (12) Thrombocytopenia Current Visit: Yes Status: Acute Subjective Date of service: 11/26/20 Principal diagnosis: Acute Resp Fail, PNA, Septic Shock, Sacral Ulcer, AF with RVR Interval history: Pt is s/p Trach & PEG ventilated, awake and able to follow simple commands. Tele reviewed: Afib 110-130s. No events overnight. Objective Last Vital Signs Temp 99.6 F 11/26/20 08:34 Pulse 127 H 11/26/20 09:30 Resp 21 11/26/20 08:15 BP 124/74 11/26/20 08:14 Pulse Ox 96 11/26/20 08:14 - Physical Examination General: No Apparent Distress, Other (intubated) HEENT: Positive: EOMI, Normocephaly, Mucus Membranes Moist Neck: Positive: neck supple, trachea midline Cardiac: Positive: irregularly irregular, S1/S2 Lungs: Positive: Ventilated Respirations Neuro: Positive: Other (awake, able to follow simple commands, aphasic s/p trach) Abdomen: Positive: Soft, Active Bowel Sounds. Negative: Tender Skin: Positive: Wound (sacral). Negative: Rash Musculoskeletal: No Fluid Collection, No Pain Extremities: Present: upper extr. pulses, lower extr. pulses, +1 Edema, Other (chronic skin changes noted) - Labs and Meds CBC 11/25/20 11/26/20 Range/Units 11:20 09:25 WBC 19.0 H 20.8 H (4.5-11.0) K/mm3 RBC 2.28 L 2.82 L (3.65-5.03) M/mm3 Hgb 7.3 L 8.7 L (11.8-15.2) gm/dl Hct 22.5 L 27.3 L (35.5-45.6) % Plt Count 280 282 (140-440) K/mm3 Comprehensive Metabolic Panel 11/26/20 Range/Units 09:25 Sodium TNR Potassium TNR Chloride TNR Carbon Dioxide TNR BUN TNR Creatinine TNR Glucose TNR Calcium TNR - Imaging and Cardiology EKG: report reviewed, image reviewed Echo: report reviewed (10/28/2020- EF 55-60%, no significant valvular abnormalities) - Telemetry EKG Rhythm: Atrial Fibrillation Repolarization changes or abnormalities: nonspecific abnormality, ST segment, and/or T wave - Allied health notes Allied health notes reviewed: nursing
--- NOTE | 2020-11-26 13:18 | Progress Note ---
Assessment and Plan Cultures: 10/26/2020 tracheal aspirate culture: MRSA 10/26/2020 blood culture: Proteus 10/27/2020 urine culture: Mixed hien 11/15/2020 sputum culture: MRSA A/P: 75-year-old male, intermediate resident with seizure disorder, hypertension, depression, hyperlipidemia, chronic encephalopathy was sent to the hospital with worsening mental status: #Septic shock: probably from pneumonia. Resolved #Acute hypoxic respiratory failure: on the vent, s/p trach. #Proteus bacteremia: multifactorial from infected sacral decubitus ulcer, bilateral pneumonia, UTI. S/P abx. #Acute diarrhea: ?C. difficile, improved on vancomycin p.o. Diarrhea improved, Cdiff test was not able to be done. #Necrotic, infected sacral decubitus ulcer: underwent debridement 10/29/2020, also noted to have brittle coccyx consistent with osteomyelitis. s/p abx. #UTI: UA with significant pyuria. #FAZAL: resolved #PVD: SFA occlusion. Not a candidate for revascularization per vascular Recs: Monitor WBC. Leucocytosis multifactorial including from ischemic feet/digits, sacral wound Continue wound care No fever, remains off pressors. Monitor off antibiotics Stephania Starr MD, FACP [facility] O: [phone] F: [phone] Subjective Date of service: 11/26/20 Principal diagnosis: Acute Resp Fail, PNA, Septic Shock, Sacral Ulcer, AF with RVR Interval history: No fever. Opens eyes. On vent via trach. No distress. Objective - Exam Narrative Exam: Physical Exam: Constitutional: awake, on the vent Head, Ears, Nose: Normocephalic, atraumatic. External ears, nose normal Eyes: Conjunctivae/corneas clear. No icterus. No ptosis. Neck: trach Oral: limited Cardiovascular: S1, S2 + Respiratory: AE fair bilaterally and equal GI: Soft, bowel sounds +, PEG + Musculoskeletal: Anasarca. Bilateral lower extremities with wounds, ischemic digits Skin: No rash or abscess Hem/Lymphatic: No palpable cervical or supraclavicular nodes. No lymphangitis Psych: no agitation Neurological: awake, on the vent via trach. - Constitutional Vitals: Vital Signs Temp Pulse Resp BP Pulse Ox 99.2 F 110 H 21 126/74 94 11/26/20 12:28 11/26/20 12:39 11/26/20 08:15 11/26/20 12:39 11/26/20 11:55 Temperature -Last 24 Hours Temperature 99.2 F Temperature 99.6 F Temperature 98.6 F Temperature 97.6 F Temperature 98.4 F Temperature 97.8 F - Labs CBC & Chem 7: 11/26/20 09:25 11/26/20 09:25 Labs: Abnormal lab results 11/25/20 11/26/20 11/26/20 Range/Units 16:25 09:25 12:01 WBC 20.8 H (4.5-11.0) K/mm3 RBC 2.82 L (3.65-5.03) M/mm3 Hgb 8.7 L (11.8-15.2) gm/dl Hct 27.3 L (35.5-45.6) % MCV 97 H (84-94) fl RDW 17.9 H (13.2-15.2) % ABG pH 7.480 H (7.320-7.450) POC ABG pO2 78.1 L (83-108) mmHg ABG Hemoglobin 8.5 L (12.0-17.5) ABG Glucose 114 H (65-95) mg/dL POC Glucose 130 H (70-105) mg/dL Arterial Blood Glucose 114 H (65-95) mg/dL Arterial Blood Ionized Calcium 4.5 L (4.6-5.3) mg/dL
--- NOTE | 2020-11-26 14:38 | Progress Note ---
Assessment and Plan Assessment and plan: 75-year-old male who is a prison resident with seizure disorder, hypertension, depression, hyperlipidemia, hypoglycemia, dysphagia, and encephalopathy who is admitted for sepsis, acute kidney injury, urinary tract infection, acute respiratory failure, electrolyte imbalances, infected sacral wound and bilateral pneumonia Sepsis Acute respiratory failure with Hypoxia Cardiovascular shock Infected sacral wound s/p debridement with surgery Generalized anasarca possible acute diastolic congestive heart failure Anemia Afib Bilateral pleural effusion Right and left lung atelectasis secondary to mucous plug Proteus bacteremia MRSA pneumonia Urine tract infection Leukocytosis Acute kidney injury with vasomotor Nephropathy Acute Diarrhea ?C.diff- Test was not peformed SFA occlusion - Not a candidate for surgery per Vascular -ID, cardiology, CCM, surgery, vascular surgery, nephrology, surgery, WOCN consulted, appreciate recommendations -FAZAL, pneumonia, infected sacral wound, acute respiratory failure, leukocytosis, hypotension requiring vasopressor support -s/p Antibiotic therapy -10/26 tracheal aspirate with MRSA, 10/26 blood cultures x2 with Proteus mirabilis, 10/27 urine culture possible contaminant, 11/15: Trach aspirate positive for staph coccus aureus, 11/06 occult stool positive -On mechanical ventilation, wean as tolerated, VAP bundle, CPAP trials as tolerated -Wound care per nursing -Fentanyl IVP -Midodrine, amiodorone -S/p IVF resuscitation -HIT panel negative -Surgery placed 11/21/2020 for trach/PEG placement -s/p 5 units PRBC during stay -Trend CBC and BMP GI/DVT prophylaxis: Lovenox subq, SCDs to bilateral legs while in bed, PPI Dispo: ICU, CM [facility] The high probability of a clinically significant, sudden or life threatening deterioration of the [pulmonary, cardiac] system(s) required my full and direct attention, intervention and personal management. The aggregate critical care time was [35] minutes. This time is in addition to time spent performing reported procedures but includes the following: [X] Data Review and interpretation [X] Patient assessment and monitoring of vital signs [X] Documentation [X] Medication orders and management History Interval history: This is a 75-year-old male who is a prison resident with seizure disorder, hypertension, depression, hyperlipidemia, hypoglycemia, dysphagia, and encephalopathy who presents to the emergency department on 10/26 via EMS for tachypnea, dry mucous membranes and hypoxia. Patient was hypotensive, febrile to 103 degrees and hypoxic in the emergency department therefore he was intubated and central IV access was obtained. Patient received 3.5 L of IV fluid in the emergency department. Patient was admitted to the hospital service with consults to CCM, surgery, WOCN and ID for Sepsis, acute kidney injury, urinary tract infection, acute respiratory failure, electrolyte imbalances, infected sacral wound and bilateral pneumonia. 10/27: Patient received additional 4 L LR for fluid resuscitation and CV monitoring was initiated. Patient is on Levophed. ID added Flagyl to vancomycin and cefepime. His trach aspirate grew staph coccus aureus. At the time my examination patient the fentanyl drip was held by RN and he was on 14 MCG of Levophed. This morning he was on assist control 450/20/6/.100. We will give additional bolus of fluids with goal CVP 10-12 and repeat labs in AM. Surgery was consulted to possible debridement. 10/28: Overnight it was noted that patient went into SVT and he was given adenosine 6 mg/12 mg / 12 mg once and was started on a Cardizem drip after no response to amnio bolus and cardiology was consulted. Currently patient remains on Levophed drip and is hypotensive and received additional 2 L of bolus for goal CVP of 10-12. Infectious disease changed cefepime/Flagyl to meropenem for GNR in his blood cultures 09/04 and will continue vancomycin. Patient currently was not well controlled on max Cardizem and cardiology initiated amiodarone. Patient still is very tachycardic. Patient is hypomagnesemic and we will replete his Mg and recheck level. We will give the patient additional to complete resolve LR this afternoon. Patient has a standing order per [facility] to bolus the patient with LR for CVP goal of 10-12. This morning he is hyperchlormeic, metabolic acidotic (bicarb drip initiated) and his BUN/creatinine slightly elevated. Patient still remains lactic acidotic. 10/29: Patient's blood culture speciated to Proteus and his tracheal aspirate is MRSA. He is currently on ceftriaxone, Flagyl and vancomycin. Patient heart rate consistently is 110-150s and cardiology has given him an amiodarone bolus today and he remains on amiodarone drip. He looks much started on IV digoxin. This morning 4 L LR bolus was ordered and we will bolus an additional 4 L of LR this afternoon. Patient still has lactic acidosis, metabolic acidosis, leukocytosis and hyperchloremia. On examination this morning patient is more edematous and he remains on Levophed and amnio drip. 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 Remains on amio, levo and sedated with fentanyl. He is hypokalemic today which was repleted, h/h 02/18 and he is being type and crossed today with 2 units PRBC ordered to be transfused. Plt drop noted, heparin discontinued and HIT ordered. Bicarb gtt discontinued. No acute events overnight. 10/31: Patient hypomagnesemia today which was repleted and cardiology has changed his IV amiodarone to p.o. Patient will get albumin per [facility]. At the time my examination patient is on assist control 450/20/6/0.40. 11/03: At the time my examination patient is on assist control 450/20/6/0.25 and sedated with fentanyl and on Levophed at 4.Patient's leukocytosis is improving he received Albumin this weekend. Patient is hypokalemic, hypomagnesemic, hypocalcemic today. We will repeat his electrolytes and recheck a BMP in the a.m. Patient received 2 units PRBC on 10/30 and his hemoglobin has been trending down. We will recheck in the a.m. 11/04: At the time of my examination patient was on Levophed 3 mcg and on VZV/CPAP 450/20/6/0.35. Patient still has leukocytosis, respiratory alkalosis, hyponatremia, hypochloremia, hypocalcemia. Today his magnesium and potassium repleted with bolus of potassium 4/magnesium 2. He received 60 mcg KCl p.o., 40 mEq of KCl IV and 2 g of magnesium sulfate. We will recheck BMP and mag and a.m. Surgery has deemed the patient to unstable for further debulking. We also consulted vascular surgery for PVD as patient has discoloration to BLE /feet. 11/05: Vascular surgery will obtain bilateral lower extremity arterial duplex to evaluate arterial flow and recommends adding as FWF to tube feedings in assisting to wean off of vasopressors. Patient has hypokalemia, hypophosphatemia and normal to low magnesium. Magnesium, potassium and phosphate have been repleted. Patient still remains on ventilator support but on CPAP trial this morning. Patient HIT is still pending. This morning at the time of my examination patient was on assist-control 450/20/6/0.35 and he tolerated CPAP trial for 4 hours yesterday. He was on Levophed 0.5 and his rectal tube output was noted at 1000 mL. 11/06: This morning patient was on a CPAP trial and became hypoxic with SPO2 into the 80s and was switched back to assist control. Patient's vent settings are assist control tidal and 450, rate 20, PEEP 6, FiO2 0.25. Today patient has leukocytosis, hypernatremia, hyperchloremia, hypocalcemia and hypophosphatemia. We will repeat a phosphate. His free water flushes have been increased and his magnesium has been repleted again. Patient has been started on Lovenox given improvement in his platelet count and on midodrine to help keep Levophed off. Infectious disease will continue p.o. vancomycin for total of 10 days. 11/07: Patient failed his CPAP trial yesterday and has been placed on CPAP 10 again this morning by RT. Overnight patient was rested on assist control tolerance by 50, rate of 20, pressure support 6 and FiO2 30%. His lab work is still pending for this morning. On repeat his phosphorus was 4.50 yesterday and repletion was discontinued. 11/08/2020; patient is off pressors currently on midodrine. Patient is on ceftriaxone and vancomycin. Patient is on assist control. Patient was evaluated by vascular surgery for peripheral vascular disease with SFA occlusion and recommend no intervention at this time. Prognosis is guarded. Patient is on 2 L of intranasal oxygen. We will put speech therapy evaluation. 11/09/2020; patient is currently off pressors and on midodrine. Continue with ceftriaxone, Flagyl and vancomycin per ID recommendation. Patient's blood culture grew Proteus mirabilis and tracheal aspirate grew MRSA. Patient was evaluated by vascular surgery for PVD with SFA occlusion and recommend no intervention at this time. Patient is on 2 L of intranasal oxygen. Currently patient is on tube feeding and follow speech therapy evaluation. 11/10: Overnight noted to have increased RR, ? Awaiting speech eval considering patient still on Tube feeds. Continue to monitor Hypernatremia. Antibiotics today will be D12. Will continue discharge planning on discussion with CM. Patient nonrebreather. Possibly back on congestive heart failure will need appropriate diuresis. Transferred back to [facility]. Discussed with wholesaler and also with cardiology. 11/11: Remains lethargic remains in respiratory distress chest x-ray shows right lung collapse likely secondary to mucous plug. Discussed with wholesaler will likely undergo a bronchoscopy today. We will also continue to monitor as we did suggest possible pleural effusion which we think may be less likely but if that seems to be the case we will send patient for thoracentesis following the bronchoscopy. Continue to monitor hemoglobin continue to monitor diarrhea antibiotics management per infectious disease. I did speak and update patient's cousin yesterday. Patient still with edema will await cardiology reevaluation for possible further diuresis. 11/12: Patient for Bronchoscopy today. Continue supportive care 11/13: Patient Clinically improving, tolerated Bronchoscopy yesterday. Awaiting am labs today. Overnight had bradycardia. Continue weaning oxygen. 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 Will monitor serial x-rays. Discussed with nursing staff about my discussion with the brother. Continue supportive care. PER Brother,([phone] patient has had recurrent knee aspiration. Cardiology to re-evaluate today for Bradycardia noted overnight 11/14: Patient had a repeat bronchoscopy yesterday of the right lung due to mucous plug. [employer] did have a conversation with the cousin as one of the considerations may be a trach due to recurrent pulmonary mucous plug and also significant debility for patient's overall medical condition. And his inability to maintain his airway. We will start him on a low round of D5 until diet is established. We will continue to monitor clinical status this morning. Plan discussed with nursing staff patient and also with regional operations manager 11/15: Continues to show some improvement, will check CXR today. Wean oxygen as tolerated, will likely need Trach per pulmonary. WBC improving, will monitor Sodium level. Patient on dopamin. 11/16: Patient overnight required intubation due to worsening respiratory failure secondary to complete opacification of the right lung again. This has appeared to cleared up this morning following the intuabation. Cousin advised of the finding, he will try to get us all his records because he believes that the patient has had a trach done before but is not sure. Started on Pressors due to hypotension 11/17: Today general surgery was consulted for trach/PEG placement, patient grew staph and tracheal aspirate and his cefepime was stopped and [facility] ordered a trial dose of Lasix. At the time my examination patient was on 1 mcg of fentanyl and dopamine 5 mcg/kg per cardiology. He has hyperchloremia and his lab work and is anemic today at 6.6/20.2. Patient received 1 unit PRBC. We will obtain a CBC in the a.m. 11/18: No acute events reported overnight, patient was given Lasix again by [facility], surgery has requested transfusion of one 1 unit PRBC despite H/H being 7.4/23.4 and plans to do a tracheostomy and plans to perform PEG and trach placement on 11/21/2020. We will follow up BMP and CBC in the a.m. Coags ordered. 11/19: Patient's next of kin still Mr. Buckley's next of kin/POA is still undecided about trach/PEG, surgeon aware. [facility] has given the patient another dose of Lasix and he was noted to be in atrial fibrillation with RVR this morning. Cardiology is aware and they have opted to resume amiodarone drip for rate control. We will obtain a BMP in the a.m. 11/20: At the time of examination patient remains on amiodarone 0.05 mcg and fentanyl 1 mcg on assist control tidal volume 500, rate 20, PEEP 6, FiO2 of 40%. Patient will have Lasix dose again. Dr. Quintanilla updated the family today. 11/21: Patient remains atrial fibrillation but is better rate controlled. Patient was taking to the OR for trach/PEG General surgery. No acute events reported overnight. Patient was given diuresed again and we will recheck a BMP in the a.m. 11/22. Patient tolerated tracheostomy. Alert no new concerns. Patient able to not that he is not in pain. 11/23 patient appears to be tolerating PEG tube feedings able to use tube feedings no new concerns over p.m. alert improving respiratory failure 11/24: No acute events overgnight. At the time my examination patient was on assist control tidal volume 500, rate 12, PEEP 6, FiO2 50%. Patient fentanyl drip discontinued and placed on IV push fentanyl 50 mcg every 2 hours. RN to remove right IJ. 11/25: Continue CPAP trials as tolerated, amiodarone decreased, midodrine and metoprolol initiated by cardiology. Patient had an episode of emesis however he denied being nauseous and did not have any emesis when trach suctioned. Patient remains afebrile. Midline was placed yesterday and IJ removed. Patient has leukocytosis but remains off of vasopressors, antibiotics and is febrile. At the time of examination patient is on assist control 21 500, rate 20, PEEP 6 and FiO2 45%. 11/26: Cardiology has increased his metoprolol and decreased his amiodarone due to soft blood pressures. Patient is adamant that he would like to go home. We will continue CPAP trials. Hospitalist Physical - Constitutional Vitals: Temp Pulse Resp BP Pulse Ox 99.2 F 96 H 24 129/77 93 11/26/20 12:28 11/26/20 14:06 11/26/20 11:42 11/26/20 14:06 11/26/20 14:06 General appearance: Present: no acute distress, other (Patient resting comfortably on vent) - EENT Eyes: Present: PERRL, EOM intact ENT: poor dentition - Neck Neck: Present: normal ROM - Respiratory Respiratory effort: normal Respiratory: bilateral: diminished - Cardiovascular Rhythm: irregularly irregular Heart Sounds: Present: S1 & S2. Absent: systolic murmur, diastolic murmur - Extremities Extremities: no ischemia, pulses intact, pulses symmetrical, normal temperature, normal color Extremity abnormal: edema Peripheral Pulses: within normal limits - Abdominal General gastrointestinal: soft, non-tender, non-distended, normal bowel sounds - Integumentary Integumentary: Present: warm, dry - Psychiatric Psychiatric: agitated - Neurologic Neurologic: CNII-XII intact, no focal deficits, moves all extremities - Allied Health Allied health notes reviewed: nursing, RT, social work HEART Score - HEART Score EKG: Non-specific Age: > 65 Risk factors: > 3 risk factors or hx of atherosclerotic disease Troponin: Troponin T 0.123 ng/mL (0.00-0.029) H* 11/13/20 23:15 Troponin: < normal limit - Critical Actions Critical Actions: 4-6 pts:12-16.6% risk of adverse cardiac event. Should be admitted Results - Labs CBC & Chem 7: 11/26/20 09:25 11/26/20 09:25 Labs: Laboratory Last Values WBC 20.8 K/mm3 (4.5-11.0) H 11/26/20 09:25 RBC 2.82 M/mm3 (3.65-5.03) L 11/26/20 09:25 Hgb 8.7 gm/dl (11.8-15.2) L 11/26/20 09:25 Hct 27.3 % (35.5-45.6) L 11/26/20 09:25 MCV 97 fl (84-94) H 11/26/20 09:25 MCH 31 pg (28-32) 11/26/20 09:25 MCHC 32 % (32-34) 11/26/20 09:25 RDW 17.9 % (13.2-15.2) H 11/26/20 09:25 Plt Count 282 K/mm3 (140-440) 11/26/20 09:25 Lymph % (Auto) 9.1 % (13.4-35.0) L 11/09/20 06:00 Graham % (Auto) 5.4 % (0.0-7.3) 11/09/20 06:00 Eos % (Auto) 0.3 % (0.0-4.3) 11/09/20 06:00 Baso % (Auto) 0.4 % (0.0-1.8) 11/09/20 06:00 Lymph # (Auto) 1.2 K/mm3 (1.2-5.4) 11/09/20 06:00 Graham # (Auto) 0.7 K/mm3 (0.0-0.8) 11/09/20 06:00 Eos # (Auto) 0.0 K/mm3 (0.0-0.4) 11/09/20 06:00 Baso # (Auto) 0.0 K/mm3 (0.0-0.1) 11/09/20 06:00 Add Manual Diff Complete 11/23/20 10:23 Total Counted 100 11/23/20 10:23 Seg Neutrophils % 84.8 % (40.0-70.0) H 11/09/20 06:00 Seg Neuts % (Manual) 94.0 % (40.0-70.0) H 11/23/20 10:23 Band Neutrophils % 17.0 % 10/27/20 03:30 Lymphocytes % (Manual) 5.0 % (13.4-35.0) L 11/23/20 10:23 Monocytes % (Manual) 1.0 % (0.0-7.3) 11/23/20 10:23 Eosinophils % (Manual) 2.0 % (0.0-4.3) 10/27/20 03:30 Metamyelocytes % 4.0 % 10/27/20 03:30 Nucleated RBC % Not Reportable 11/23/20 10:23 Seg Neutrophils # 11.1 K/mm3 (1.8-7.7) H 11/09/20 06:00 Seg Neutrophils # Man 10.6 K/mm3 (1.8-7.7) H 11/23/20 10:23 Band Neutrophils # 0.0 K/mm3 11/23/20 10:23 Lymphocytes # (Manual) 0.6 K/mm3 (1.2-5.4) L 11/23/20 10:23 Abs React Lymphs (Man) 0.0 K/mm3 11/23/20 10:23 Monocytes # (Manual) 0.1 K/mm3 (0.0-0.8) 11/23/20 10:23 Eosinophils # (Manual) 0.0 K/mm3 (0.0-0.4) 11/23/20 10:23 Basophils # (Manual) 0.0 K/mm3 (0.0-0.1) 11/23/20 10:23 Metamyelocytes # 0.0 K/mm3 11/23/20 10:23 Myelocytes # 0.0 K/mm3 11/23/20 10:23 Promyelocytes # 0.0 K/mm3 11/23/20 10:23 Blast Cells # 0.0 K/mm3 11/23/20 10:23 WBC Morphology Not Reportable 11/23/20 10:23 Hypersegmented Neuts Not Reportable 11/23/20 10:23 Hyposegmented Neuts Not Reportable 11/23/20 10:23 Hypogranular Neuts Not Reportable 11/23/20 10:23 Smudge Cells Not Reportable 11/23/20 10:23 Toxic Granulation Not Reportable 11/23/20 10:23 Toxic Vacuolation Not Reportable 11/23/20 10:23 Dohle Bodies Not Reportable 11/23/20 10:23 Pelger-Huet Anomaly Not Reportable 11/23/20 10:23 Kassi Rods Not Reportable 11/23/20 10:23 Platelet Estimate Consistent w auto 11/23/20 10:23 Clumped Platelets Not Reportable 11/23/20 10:23 Plt Clumps, EDTA Not Reportable 11/23/20 10:23 Large Platelets Not Reportable 11/23/20 10:23 Giant Platelets Not Reportable 11/23/20 10:23 Platelet Satelliting Not Reportable 11/23/20 10:23 Plt Morphology Comment Not Reportable 11/23/20 10:23 RBC Morphology Normal 11/23/20 10:23 Dimorphic RBCs Not Reportable 11/23/20 10:23 Polychromasia Not Reportable 11/23/20 10:23 Hypochromasia Not Reportable 11/23/20 10:23 Poikilocytosis Not Reportable 11/23/20 10:23 Anisocytosis Not Reportable 11/23/20 10:23 Microcytosis Not Reportable 11/23/20 10:23 Macrocytosis Not Reportable 11/23/20 10:23 Spherocytes Not Reportable 11/23/20 10:23 Pappenheimer Bodies Not Reportable 11/23/20 10:23 Sickle Cells Not Reportable 11/23/20 10:23 Target Cells Not Reportable 11/23/20 10:23 Tear Drop Cells Not Reportable 11/23/20 10:23 Ovalocytes Not Reportable 11/23/20 10:23 Helmet Cells Not Reportable 11/23/20 10:23 [place]-Centuria Bodies Not Reportable 11/23/20 10:23 [place] Rings Not Reportable 11/23/20 10:23 Rhea Cells Not Reportable 11/23/20 10:23 Bite Cells Not Reportable 11/23/20 10:23 Crenated Cell Not Reportable 11/23/20 10:23 Elliptocytes Not Reportable 11/23/20 10:23 Acanthocytes (Spur) Not Reportable 11/23/20 10:23 Rouleaux Not Reportable 11/23/20 10:23 Hemoglobin C Crystals Not Reportable 11/23/20 10:23 Schistocytes Not Reportable 11/23/20 10:23 Malaria parasites Not Reportable 11/23/20 10:23 Richard Bodies Not Reportable 11/23/20 10:23 Hem Pathologist Commnt No 11/23/20 10:23 PT 14.7 Sec. (12.2-14.9) 11/19/20 06:36 INR 1.15 (0.87-1.13) H 11/19/20 06:36 APTT 27.9 Sec. (24.2-36.6) 10/26/20 17:25 Heparin Anti-Xa, Unfract Negative (Negative) 11/03/20 11:01 ABG pH 7.480 (7.320-7.450) H 11/25/20 16:25 POC ABG pCO2 43.1 mmHg (32.0-48.0) 11/25/20 16:25 ABG pCO2 43.4 mm Hg 11/19/20 Unknown POC ABG pO2 78.1 mmHg (83-108) L 11/25/20 16:25 ABG pO2 72.4 mm Hg (80.0-90.0) L 11/19/20 Unknown POC ABG HCO3 31.4 11/25/20 16:25 ABG HCO3 26.9 mmol/L (20.0-26.0) H 11/19/20 Unknown ABG O2 Saturation 96.0 (0-100) 11/25/20 16:25 ABG O2 Content 11.3 (0.0-44) 11/19/20 Unknown POC ABG Base Excess 7.2 11/25/20 16:25 ABG Base Excess 2.0 mmol/L (-2.0-3.0) 11/19/20 Unknown ABG Hemoglobin 8.5 (12.0-17.5) L 11/25/20 16:25 ABG Oxyhemoglobin 94.9 (94-98) 11/25/20 16:25 ABG Carboxyhemoglobin 2.0 % (0.0-5.0) 11/19/20 Unknown ABG Methemoglobin 0.3 (0.0-1.5) 11/25/20 16:25 ABG Sodium 137.5 mmol/L (136.0-145.0) 11/25/20 16:25 ABG Potassium 4.1 mmol/L (3.40-4.50) 11/25/20 16:25 ABG Chloride 105.0 mmol/L (98-107) 11/25/20 16:25 ABG Glucose 114 mg/dL (65-95) H 11/25/20 16:25 Oxyhemoglobin 94.1 % (95.0-99.0) L 11/19/20 Unknown Carboxyhemoglobin 0.8 (0.5-1.5) 11/25/20 16:25 FiO2 30 % 11/19/20 Unknown FiO2 % 45.0 11/25/20 16:25 Sodium TNR 11/26/20 09:25 Potassium TNR 11/26/20 09:25 Chloride TNR 11/26/20 09:25 Carbon Dioxide TNR 11/26/20 09:25 Anion Gap TNR 11/26/20 09:25 BUN TNR 11/26/20 09:25 Creatinine TNR 11/26/20 09:25 Estimated GFR TNR 11/26/20 09:25 BUN/Creatinine Ratio TNR 11/26/20 09:25 Glucose TNR 11/26/20 09:25 POC Glucose 130 mg/dL (70-105) H 11/26/20 12:01 Hemoglobin A1c 5.5 % (4-6) 10/27/20 04:42 Lactic Acid 4.30 mmol/L (0.7-2.0) H* 10/31/20 Unknown Calcium TNR 11/26/20 09:25 Phosphorus 4.50 mg/dL (2.5-4.5) D 11/06/20 13:03 Magnesium 1.70 mg/dL (1.7-2.3) 11/21/20 09:47 Total Bilirubin < 0.20 mg/dL (0.1-1.2) 11/06/20 06:45 AST 23 units/L (5-40) 11/06/20 06:45 ALT 20 units/L (7-56) 11/06/20 06:45 Alkaline Phosphatase 117 units/L (35-129) 11/06/20 06:45 Total Creatine Kinase 31 units/L (55-170) L 10/26/20 17:28 Troponin T 0.123 ng/mL (0.00-0.029) H* 11/13/20 23:15 Total Protein 5.0 g/dL (6.3-8.2) L 11/06/20 06:45 Albumin 1.4 g/dL (3.9-5) L 11/06/20 06:45 Albumin/Globulin Ratio 0.4 % 11/06/20 06:45 Triglycerides 190 mg/dL (2-149) H 10/26/20 17:25 Cholesterol 92 mg/dL (50-199) 10/26/20 17:25 LDL Cholesterol Direct 33 mg/dL (50-130) L 10/26/20 17:25 HDL Cholesterol 18 mg/dL (40-59) L 10/26/20 17:25 Cholesterol/HDL Ratio 5.11 % 10/26/20 17:25 Serotonin Release Assay See scanned results 11/03/20 11:01 TSH 1.490 mlU/mL (0.270-4.200) 10/26/20 17:28 Arterial Blood Glucose 114 mg/dL (65-95) H 11/25/20 16:25 Arterial Blood Ionized Calcium 4.5 mg/dL (4.6-5.3) L 11/25/20 16:25 Urine Color Yellow (Yellow) 10/27/20 Unknown Urine Turbidity Turbid (Clear) 10/27/20 Unknown Urine pH 8.0 (5.0-7.0) H 10/27/20 Unknown Ur Specific [place] 1.020 (1.003-1.030) 10/27/20 Unknown Urine Protein >500 mg/dL (Negative) 10/27/20 Unknown Urine Glucose (UA) Neg mg/dL (Negative) 10/27/20 Unknown Urine Ketones Neg mg/dL (Negative) 10/27/20 Unknown Urine Blood Sm (Negative) 10/27/20 Unknown Urine Nitrite Neg (Negative) 10/27/20 Unknown Urine Bilirubin Neg (Negative) 10/27/20 Unknown Urine Urobilinogen < 2.0 mg/dL (<2.0) 10/27/20 Unknown Ur Leukocyte Esterase Mod (Negative) 10/27/20 Unknown Urine WBC (Auto) > 182.0 /HPF (0.0-6.0) H 10/27/20 Unknown Urine RBC (Auto) 35.0 /HPF (0.0-6.0) 10/27/20 Unknown Urine WBC Clumps 3+ /HPF 10/27/20 Unknown Urine Mucus 3+ /HPF 10/27/20 Unknown Urine Yeast (Budding) 3+ /HPF 10/27/20 Unknown Vancomycin Trough 18.0 ug/mL (5.0-20.0) 11/19/20 09:06 Salicylates < 0.3 mg/dL (2.8-20.0) L 10/26/20 17:28 Acetaminophen 5.0 ug/mL (10.0-30.0) L 10/26/20 17:28 Heparin-induced Plt Ab Negative (Negative) 11/03/20 11:01 UF Heparin High Dose 0 % Release 11/03/20 11:01 [facility] Low Dose 0.1 2 % Release 11/03/20 11:01 [facility] Low Dose 0.5 0 % Release 11/03/20 11:01 Coronavirus (PCR) Negative (Negative) 10/27/20 Unknown Blood Type O POSITIVE 11/17/20 11:10 Antibody Screen Negative 11/17/20 11:10 Crossmatch See Detail 11/17/20 11:10 Rivas/IV: Voiding Method Indwelling Catheter Active Medications - Current Medications Current Medications: Generic Name Dose Route Start Last Admin Trade Name Freq PRN Reason Stop Dose Admin Acetaminophen 650 mg 10/26/20 22:22 11/13/20 14:36 Acetaminophen 325 Mg Tab PO 650 mg Q4H PRN Administration Pain MILD(1-3)/Fever >100.5/TIERNEY Albuterol 2.5 mg 11/11/20 14:00 11/26/20 14:05 Albuterol 2.5 Mg/3 Ml Nebu IH 2.5 mg TIDRT MARSHALL Administration Amiodarone HCl 200 mg 11/25/20 10:00 11/26/20 09:29 Amiodarone 200 Mg Tab PO 200 mg BID MARSHALL Administration Lipase/Protease/Amylase 1 each 10/28/20 13:18 Lipase 10,500/Protease 25,000/Amylase 43,750 (Units) Dr Casper FEEDTUBE PRN PRN For Clogged Feeding Tube Enoxaparin Sodium 40 mg 11/22/20 22:00 11/25/20 21:08 Enoxaparin 40 Mg/0.4 Ml Inj SUB-Q 40 mg QDAY@2200 MARSHALL Administration Protocol Famotidine 20 mg 11/24/20 22:00 11/26/20 09:30 Famotidine 20 Mg Tab PO 20 mg BID MARSHALL Administration Fentanyl 50 mcg 11/15/20 22:30 11/26/20 05:03 Fentanyl 100 Mcg/2 Ml Inj IV 50 mcg Q10MIN PRN Administration ANALGESIA Hydrophilic Ointment 1 applic 11/15/20 22:30 Lip Therapy Vaseline TP Q2HR PRN Dry Lips Norepinephrine 4 mg in 250 mls @ 7.5 mls/hr 11/15/20 23:45 11/17/20 01:37 Levophed Drip 4 Mg/Ns 250 Ml IV 0 mcg/min TITR MARSHALL 0 mls/hr Titration Protocol 2 MCG/MIN Metoprolol Tartrate 12.5 mg 11/26/20 12:00 11/26/20 12:39 Metoprolol Tartrate 25 Mg Tab PO 12.5 mg Q6HR MARSHALL Administration Midodrine 10 mg 11/06/20 12:00 11/26/20 12:40 Midodrine 5 Mg Tab PO 10 mg TID@0800,1200,1600 MARSHALL Administration Multi-Ingred Cream/Lotion/Oil/Oint 1 applic 11/15/20 22:30 Mineral Oil/Petrolatum, White Ophth Oint 3.5 Gm OU Q4HR PRN Dry Eye(s) Ondansetron HCl 4 mg 10/26/20 22:22 Ondansetron 4 Mg/2 Ml Inj IV Q8H PRN Nausea And Vomiting Simple Syrup 15 ml 10/28/20 13:18 11/10/20 16:01 Simple Syrup 15 Ml FEEDTUBE 15 ml PRN PRN Administration Hypoglycemia Simple Syrup 30 ml 10/28/20 13:18 Simple Syrup 15 Ml FEEDTUBE PRN PRN Hypoglycemia Sodium Bicarbonate 325 mg 10/28/20 13:18 Sodium Bicarbonate 325 Mg Tab FEEDTUBE PRN PRN For Clogged Feeding Tube Sodium Chloride 10 ml 10/27/20 10:00 11/26/20 09:30 Sodium Chloride 0.9% 10 Ml Flush Syringe IV 10 ml BID MARSHALL Administration Sodium Chloride 10 ml 10/26/20 22:22 Sodium Chloride 0.9% 10 Ml Flush Syringe IV PRN PRN LINE FLUSH Sodium Hypochlorite 1 applic 10/28/20 10:00 11/25/20 21:10 Sodium Hypochlorite, Dakin's 1/2 Strength (0.25%) 473 Ml Topical Soln TP 1 applicatio BID MARSHALL Administration Nutrition/Malnutrition Assess - Dietary Evaluation Nutrition/Malnutrition Findings: Nutrition Notes Start: 10/27/20 0 9:15 Freq: Status: Active Protocol: Document 11/25/20 14:43 CW (Rec: 11/25/20 14:55 CW [id number]) Nutrition Notes Need for Assessment generated from: MD Order Current Diagnosis Acute Kidney Injury,Decubitus( Pressure Ulcer),Sepsis, Hypertension,Respiratory Failure,Hyperlipidemia Other Pertinent Diagnosis AMS, MRSA, Encephalopathy, Metabiloc Acidosis, pneu ,FTT Current Diet Promote at 80 ml/hr Labs/Tests no new labs Pertinent Medications reviewed Height 6 ft 2 in Weight 85 kg [place] Body Weight (kg) 86.36 BMI 24.0 Weight Status Obese Subjective/Other Information F/U for TF tolerance. Pt had events of emesis. Will change TF for tolerance and wound healing. Diarrhea likely r/t ABTx Percent of energy/protein needs met: 94%/82% (1750 ml) Burn Absent Trauma Absent GI Symptoms Diarrhea Difficulty In Swallowing,Chewing Skin Integrity/Comment Multiple pressure ulcer,1 infected Current % PO Negligible Minimum of two criteria No Fluid Accumulation Moderate to Severe (severe) #2 Nutrition Diagnosis Increased nutrient needs ( specify in comment below) Diagnosis Progress(for reassessment Continues documentation) #1 Nutrition Diagnosis Inadequate oral intake Diagnosis Progress(for reassessment Continues documentation) Is patient on ventilator? Yes Is Patient Ambulatory and/or Out of Bed No REE-([facility]-confined to bed) 1984.976 Kcal/Kg value to use for calculation 22 Approximate Energy Requirements Using 1870 kcal/Kg Calculation Used for Recommendations Kcal/kg Additional Notes protein needs: 133 - 167g(1.2 - 1.5 g/kgAdBW 111) Fluid needs 1 ml/kcal Nutrition Intervention Change Diet Order: Change TF to Vital AF Nutrition Support: Vital AF at 70 ml/hr with a free water flush of 115 ml q4h Kcal 2,016 Protein (gm) 126 Fluid (mL) 1,362 Goal #1 TF change adn tolerance tolerance Goal #2 Meet at least 75% EER and protein needs via TF Goal #3 wound healing Anticipated Discharge Needs: TF Follow-Up By: 11/27/20 Additional Comments F/U for TF change, tolerance, and at goal
[2020-11-26] MEDS: SODIUM HYPOCHLORITE, DAKIN'S 1/2 STRENGTH (0.25%) 473 ML TOPICAL SOLN TP SCH ×2 (18:09→21:34)
[2020-11-26] MEDS: ENOXAPARIN 40 MG/0.4 ML INJ SUB-Q SCH (21:32)
[2020-11-27] MEDS: fentaNYL 100 MCG/2 ML INJ IV PRN (02:38)
[2020-11-27 06:06] LABS: Hematocrit 23.9 % (35.5-45.6); Hemoglobin 7.8 gm/dl (11.8-15.2); Mean Corpuscular HGB Conc 33 % (32-34); Mean Corpuscular Volume 97 fl (84-94); Platelet Count 384 K/mm3 (140-440); Red Blood Count 2.48 M/mm3 (3.65-5.03); Red Cell Distribution Width 17.7 % (13.2-15.2)
[2020-11-27] MEDS: METOPROLOL TARTRATE 25 MG TAB PO SCH ×4 (06:13→17:18)
[2020-11-27 06:57] LABS: Alanine Aminotransferase 8 units/L (7-56); Albumin 1.7 g/dL (3.9-5); Blood Urea Nitrogen 15 mg/dL (9-20); Calcium 7.5 mg/dL (8.4-10.2); Hemolysis Index 2
[2020-11-27 07:01] LABS: BUN/Creatinine Ratio 38
[2020-11-27] MEDS: ALBUTEROL 2.5 MG/3 ML NEBU IH SCH ×3 (08:17→20:48)
--- NOTE | 2020-11-27 09:06 | Progress Note ---
Assessment and Plan Pt is s/p Trach & PEG ventilated, awake and able to follow simple commands. Tele reviewed: A. fib heart rate 90-100s. no events overnight. Afib with RVR. Continue current cardiac regimen. Continue Metoprolol to 12.5mg Q6Hr. Continue Amiodarone to 200mg PO BID. Continue Midodrine 10mg PO TID. No systemic AC at this time in setting of anemia requiring PRBC tx, thrombocytopenia and sacral ulcer. Elevated Troponin Considering pt's advanced age and comorbidities will plan for conservative cardiac management. Anemia requiring transfusion Continue to hold AC in setting of anemia requiring transfusions. Acute Respiratory Failure s/p Trach. Ventilated. DVT Prophylaxis. On Lovenox DVT prophylaxis. SCDs in place. Will follow The patient has been seen in conjunction with Dr. Landa who agrees with the assessment and plan of care. - Patient Problems (1) AMS (altered mental status) Current Visit: Yes Status: Acute (2) Atrial fibrillation with RVR Current Visit: Yes Status: Acute Currently in SR with PJCs. No AC in setting of anemia. (3) Acute respiratory failure Current Visit: Yes Status: Acute (4) Bilateral pneumonia Current Visit: Yes Status: Acute (5) Sepsis Current Visit: Yes Status: Acute (6) Sepsis associated hypotension Current Visit: Yes Status: Acute Pt is requiring Levophed titration to maintain pressure (7) Sacral decubitus ulcer, stage IV Current Visit: Yes Status: Acute (8) UTI (urinary tract infection) Current Visit: Yes Status: Acute (9) FAZAL (acute kidney injury) Current Visit: Yes Status: Acute (10) Hypomagnesemia Current Visit: Yes Status: Acute (11) Anemia Current Visit: Yes Status: Acute (12) Thrombocytopenia Current Visit: Yes Status: Acute Subjective Date of service: 11/27/20 Principal diagnosis: Acute Resp Fail, PNA, Septic Shock, Sacral Ulcer, AF with RVR Interval history: Pt is s/p Trach & PEG ventilated, awake and able to follow simple commands. Tele reviewed: A. fib heart rate 90-100s. no events overnight. Objective Last Vital Signs Temp 98.2 F 11/27/20 04:00 Pulse 91 H 11/27/20 08:17 Resp 16 11/27/20 08:17 BP 104/64 11/27/20 08:17 Pulse Ox 98 11/27/20 08:17 - Physical Examination General: No Apparent Distress, Other (intubated) HEENT: Positive: EOMI, Normocephaly, Mucus Membranes Moist Neck: Positive: neck supple, trachea midline Cardiac: Positive: irregularly irregular, S1/S2 Lungs: Positive: Ventilated Respirations Neuro: Positive: Other (awake, able to follow simple commands, aphasic s/p trach) Abdomen: Positive: Soft, Active Bowel Sounds. Negative: Tender Skin: Positive: Wound (sacral). Negative: Rash Musculoskeletal: No Fluid Collection, No Pain Extremities: Present: upper extr. pulses, lower extr. pulses, +1 Edema, Other (chronic skin changes noted) - Labs and Meds Cardiac Enzymes 11/27/20 Range/Units 05:55 AST 8 (5-40) units/L CBC 11/26/20 11/27/20 Range/Units 09:25 05:55 WBC 20.8 H 18.1 H (4.5-11.0) K/mm3 RBC 2.82 L 2.48 L (3.65-5.03) M/mm3 Hgb 8.7 L 7.8 L (11.8-15.2) gm/dl Hct 27.3 L 23.9 L (35.5-45.6) % Plt Count 282 384 (140-440) K/mm3 Comprehensive Metabolic Panel 11/26/20 11/27/20 Range/Units 09:25 05:55 Sodium TNR 139 Potassium TNR 4.0 Chloride TNR 104.4 Carbon Dioxide TNR 32 H BUN TNR 15 Creatinine TNR 0.4 L Glucose TNR 133 H Calcium TNR 7.5 L AST 8 (5-40) units/L ALT 8 (7-56) units/L Alkaline Phosphatase 87 (35-129) units/L Total Protein 6.1 L (6.3-8.2) g/dL Albumin 1.7 L (3.9-5) g/dL - Imaging and Cardiology EKG: report reviewed, image reviewed Echo: report reviewed (10/28/2020- EF 55-60%, no significant valvular abnormalities) - Telemetry EKG Rhythm: Atrial Fibrillation Repolarization changes or abnormalities: nonspecific abnormality, ST segment, and/or T wave - Allied health notes Allied health notes reviewed: nursing
[2020-11-27] MEDS: AMIODARONE 200 MG TAB PO SCH (09:21)
[2020-11-27] MEDS: FAMOTIDINE 20 MG TAB PO SCH ×2 (09:21→21:45)
[2020-11-27] MEDS: MIDODRINE 5 MG TAB PO SCH ×3 (09:21→16:49)
--- NOTE | 2020-11-27 12:50 | Progress Note ---
Assessment and Plan Cultures: 10/26/2020 tracheal aspirate culture: MRSA 10/26/2020 blood culture: Proteus 10/27/2020 urine culture: Mixed hien 11/15/2020 sputum culture: MRSA A/P: 75-year-old male, [facility] resident with seizure disorder, hypertension, depression, hyperlipidemia, chronic encephalopathy was sent to the hospital with worsening mental status: #Septic shock: probably from pneumonia. Resolved #Acute hypoxic respiratory failure: on the vent, s/p trach. #Proteus bacteremia: multifactorial from infected sacral decubitus ulcer, bilateral pneumonia, UTI. S/P abx. #Acute diarrhea: ?C. difficile, improved on vancomycin p.o. Diarrhea improved, Cdiff test was not able to be done. #Necrotic, infected sacral decubitus ulcer: underwent debridement 10/29/2020, also noted to have brittle coccyx consistent with osteomyelitis. s/p abx. #UTI: UA with significant pyuria. #FAZAL: resolved #PVD: SFA occlusion. Not a candidate for revascularization per vascular Recs: Monitor WBC. Leucocytosis multifactorial including from ischemic feet/digits, large necrotic sacral wound Continue local wound care No fever, remains off pressors. Monitor off antibiotics. Guarded prognosis Stephania Starr MD, FACP [facility] ([facility] O: [phone] F: [phone] Subjective Date of service: 11/27/20 Principal diagnosis: Acute Resp Fail, PNA, Septic Shock, Sacral Ulcer, AF with RVR Interval history: No fever. Awake, on the vent via trach. No distress. D/W RN. Objective - Exam Narrative Exam: Physical Exam: Constitutional: awake, on the vent Head, Ears, Nose: Normocephalic, atraumatic. External ears, nose normal Eyes: Conjunctivae/corneas clear. No icterus. No ptosis. Neck: trach Oral: limited Cardiovascular: S1, S2 + Respiratory: AE fair bilaterally and equal GI: Soft, bowel sounds +, PEG + Musculoskeletal: Anasarca. Bilateral lower extremities with wounds, ischemic digits Skin: No rash or abscess Hem/Lymphatic: No palpable cervical or supraclavicular nodes. No lymphangitis Psych: no agitation Neurological: awake, on the vent via trach. - Constitutional Vitals: Vital Signs Temp Pulse Resp BP Pulse Ox 98.3 F 100 H 30 H 118/70 96 11/27/20 12:00 11/27/20 11:22 11/27/20 11:22 11/27/20 11:22 11/27/20 11:22 Temperature -Last 24 Hours Temperature 98.3 F Temperature 98.5 F Temperature 98.8 F Temperature 98.2 F Temperature 98.8 F Temperature 98.7 F Temperature 98.7 F Temperature 99.1 F - Labs CBC & Chem 7: 11/27/20 05:55 11/27/20 05:55 Labs: Abnormal lab results 11/26/20 11/26/20 11/27/20 Range/Units 16:55 23:43 05:55 WBC 18.1 H (4.5-11.0) K/mm3 RBC 2.48 L (3.65-5.03) M/mm3 Hgb 7.8 L (11.8-15.2) gm/dl Hct 23.9 L (35.5-45.6) % MCV 97 H (84-94) fl RDW 17.7 H (13.2-15.2) % Carbon Dioxide (22-30) mmol/L Creatinine (0.8-1.3) mg/dL Glucose (75-100) mg/dL POC Glucose 123 H 110 H (70-105) mg/dL Calcium (8.4-10.2) mg/dL Total Protein (6.3-8.2) g/dL Albumin (3.9-5) g/dL 11/27/20 Range/Units 05:55 WBC (4.5-11.0) K/mm3 RBC (3.65-5.03) M/mm3 Hgb (11.8-15.2) gm/dl Hct (35.5-45.6) % MCV (84-94) fl RDW (13.2-15.2) % Carbon Dioxide 32 H (22-30) mmol/L Creatinine 0.4 L (0.8-1.3) mg/dL Glucose 133 H (75-100) mg/dL POC Glucose (70-105) mg/dL Calcium 7.5 L (8.4-10.2) mg/dL Total Protein 6.1 L (6.3-8.2) g/dL Albumin 1.7 L (3.9-5) g/dL
--- NOTE | 2020-11-27 13:45 | Progress Note ---
Assessment and Plan Assessment and plan: 75-year-old male who is a [facility] with seizure disorder, hypertension, depression, hyperlipidemia, hypoglycemia, dysphagia, and encephalopathy who is admitted for sepsis, acute kidney injury, urinary tract infection, acute respiratory failure, electrolyte imbalances, infected sacral wound and bilateral pneumonia s/p Sepsis Acute respiratory failure with Hypoxia s/p Cardiovascular shock Infected sacral wound s/p debridement with surgery Generalized anasarca possible acute diastolic congestive heart failure Anemia Afib Bilateral pleural effusion Right and left lung atelectasis secondary to mucous plug s/p Proteus bacteremia s/p MRSA pneumonia s/p Urine tract infection Leukocytosis Acute kidney injury with vasomotor Nephropathy Acute Diarrhea ?C.diff- Test was not performed SFA occlusion - Not a candidate for surgery per Vascular -ID, cardiology, CCM, surgery, vascular surgery, nephrology, surgery, WOCN consulted, appreciate recommendations -FAZAL, pneumonia, infected sacral wound, acute respiratory failure, leukocytosis, hypotension requiring vasopressor support -s/p Antibiotic therapy -10/26 tracheal aspirate with MRSA, 10/26 blood cultures x2 with Proteus mirabilis, 10/27 urine culture possible contaminant, 11/15: Trach aspirate positive for staph coccus aureus, 11/06 occult stool positive -On mechanical ventilation, wean as tolerated, VAP bundle, CPAP trials as tolerated -Wound care per nursing -Fentanyl IVP -Midodrine, amiodorone -S/p IVF resuscitation -HIT panel negative -Surgery placed 11/21/2020 for trach/PEG placement -s/p 5 units PRBC during stay -Not a candidate for vascularization per vascular -Trend CBC and BMP GI/DVT prophylaxis: Lovenox subq, SCDs to bilateral legs while in bed, PPI Dispo: ICU, [facility] The high probability of a clinically significant, sudden or life threatening deterioration of the [pulmonary, cardiac] system(s) required my full and direct attention, intervention and personal management. The aggregate critical care time was [35] minutes. This time is in addition to time spent performing reported procedures but includes the following: [X] Data Review and interpretation [X] Patient assessment and monitoring of vital signs [X] Documentation [X] Medication orders and management History Interval history: This is a 75-year-old male who is a [facility] with seizure disorder, hypertension, depression, hyperlipidemia, hypoglycemia, dysphagia, and encephalopathy who presents to the emergency department on 10/26 via EMS for tachypnea, dry mucous membranes and hypoxia. Patient was hypotensive, febrile to 103 degrees and hypoxic in the emergency department therefore he was intubated and central IV access was obtained. Patient received 3.5 L of IV fluid in the emergency department. Patient was admitted to the hospital service with consults to CCM, surgery, WOCN and ID for Sepsis, acute kidney injury, urinary tract infection, acute respiratory failure, electrolyte imbalances, infected sacral wound and bilateral pneumonia. 10/27: Patient received additional 4 L LR for fluid resuscitation and CV monitoring was initiated. Patient is on Levophed. ID added Flagyl to vancomycin and cefepime. His trach aspirate grew staph coccus aureus. At the time my examination patient the fentanyl drip was held by RN and he was on 14 MCG of Levophed. This morning he was on assist control 450/20/6/.100. We will give additional bolus of fluids with goal CVP 10-12 and repeat labs in AM. Surgery was consulted to possible debridement. 10/28: Overnight it was noted that patient went into SVT and he was given adenosine 6 mg/12 mg / 12 mg once and was started on a Cardizem drip after no response to amnio bolus and cardiology was consulted. Currently patient remains on Levophed drip and is hypotensive and received additional 2 L of bolus for goal CVP of 10-12. Infectious disease changed cefepime/Flagyl to meropenem for GNR in his blood cultures 09/04 and will continue vancomycin. Patient currently was not well controlled on max Cardizem and cardiology initiated amiodarone. Patient still is very tachycardic. Patient is hypomagnesemic and we will replete his Mg and recheck level. We will give the patient additional to complete resolve LR this afternoon. Patient has a standing order per [facility] to bolus the patient with LR for CVP goal of 10-12. This morning he is hyperchlormeic, metabolic acidotic (bicarb drip initiated) and his BUN/cre atinine slightly elevated. Patient still remains lactic acidotic. 10/29: Patient's blood culture speciated to Proteus and his tracheal aspirate is MRSA. He is currently on ceftriaxone, Flagyl and vancomycin. Patient heart rate consistently is 110-150s and cardiology has given him an amiodarone bolus today and he remains on amiodarone drip. He looks much started on IV digoxin. This morning 4 L LR bolus was ordered and we will bolus an additional 4 L of LR this afternoon. Patient still has lactic acidosis, metabolic acidosis, leukocytosis and hyperchloremia. On examination this morning patient is more edematous and he remains on Levophed and amnio drip. 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 Remains on amio, levo and sedated with fentanyl. He is hypokalemic today which was repleted, h/h 02/18 and he is being type and crossed today with 2 units PRBC ordered to be transfused. Plt drop noted, heparin discontinued and HIT ordered. Bicarb gtt discontinued. No acute events overnight. 10/31: Patient hypomagnesemia today which was repleted and cardiology has changed his IV amiodarone to p.o. Patient will get albumin per [facility]. At the time my examination patient is on assist control 450/20/6/0.40. 11/03: At the time my examination patient is on assist control 450/20/6/0.25 and sedated with fentanyl and on Levophed at 4.Patient's leukocytosis is improving he received Albumin this weekend. Patient is hypokalemic, hypomagnesemic, hypocalcemic today. We will repeat his electrolytes and recheck a BMP in the a.m. Patient received 2 units PRBC on 10/30 and his hemoglobin has been trending down. We will recheck in the a.m. 11/04: At the time of my examination patient was on Levophed 3 mcg and on VZV/CPAP 450/20/6/0.35. Patient still has leukocytosis, respiratory alkalosis, hyponatremia, hypochloremia, hypocalcemia. Today his magnesium and potassium repleted with bolus of potassium 4/magnesium 2. He received 60 mcg KCl p.o., 40 mEq of KCl IV and 2 g of magnesium sulfate. We will recheck BMP and mag and a.m. Surgery has deemed the patient to unstable for further debulking. We also consulted vascular surgery for PVD as patient has discoloration to BLE /feet. 11/05: Vascular surgery will obtain bilateral lower extremity arterial duplex to e valuate arterial flow and recommends adding as FWF to tube feedings in assisting to wean off of vasopressors. Patient has hypokalemia, hypophosphatemia and normal to low magnesium. Magnesium, potassium and phosphate have been repleted. Patient still remains on ventilator support but on CPAP trial this morning. Patient HIT is still pending. This morning at the time of my examination patient was on assist-control 450/20/6/0.35 and he tolerated CPAP trial for 4 hours yesterday. He was on Levophed 0.5 and his rectal tube output was noted at 1000 mL. 11/06: This morning patient was on a CPAP trial and became hypoxic with SPO2 into the 80s and was switched back to assist control. Patient's vent settings are assist control tidal and 450, rate 20, PEEP 6, FiO2 0.25. Today patient has leukocytosis, hypernatremia, hyperchloremia, hypocalcemia and hypophosphatemia. We will repeat a phosphate. His free water flushes have been increased and his magnesium has been repleted again. Patient has been started on Lovenox given improvement in his platelet count and on midodrine to help keep Levophed off. Infectious disease will continue p.o. vancomycin for total of 10 days. 11/07: Patient failed his CPAP trial yesterday and has been placed on CPAP 10/ again this morning by RT. Overnight patient was rested on assist control tolerance by 50, rate of 20, pressure support 6 and FiO2 30%. His lab work is still pending for this morning. On repeat his phosphorus was 4.50 yesterday and repletion was discontinued. 11/08/2020; patient is off pressors currently on midodrine. Patient is on ceftriaxone and vancomycin. Patient is on assist control. Patient was evaluated by vascular surgery for peripheral vascular disease with SFA occlusion and recommend no intervention at this time. Prognosis is guarded. Patient is on 2 L of intranasal oxygen. We will put speech therapy evaluation. 11/09/2020; patient is currently off pressors and on midodrine. Continue with ceftriaxone, Flagyl and vancomycin per ID recommendation. Patient's blood culture grew Proteus mirabilis and tracheal aspirate grew MRSA. Patient was evaluated by vascular surgery for PVD with SFA occlusion and recommend no intervention at this time. Patient is on 2 L of intranasal oxygen. Currently patient is on tube feeding and follow speech therapy evaluation. 11/10: Overnight noted to have increased RR, ? Awaiting speech eval considering patient still on Tube feeds. Continue to monitor Hypernatremia. Antibiotics today will be D12. Will continue discharge planning on discussion with CM. Patient nonrebreather. Possibly back on congestive heart failure will need appropriate diuresis. Transferred back to [facility]. Discussed with assistant professor of english and also with cardiology. 11/11: Remains lethargic remains in respiratory distress chest x-ray shows right lung collapse likely secondary to mucous plug. Discussed with assistant professor of english will likely undergo a bronchoscopy today. We will also continue to monitor as we did suggest possible pleural effusion which we think may be less likely but if that seems to be the case we will send patient for thoracentesis following the bronchoscopy. Continue to monitor hemoglobin continue to monitor diarrhea antibiotics management per infectious disease. I did speak and update patient's cousin yesterday. Patient still with edema will await cardiology reevaluation for possible further diuresis. 11/12: Patient for Bronchoscopy today. Continue supportive care 11/13: Patient Clinically improving, tolerated Bronchoscopy yesterday. Awaiting am labs today. Overnight had bradycardia. Continue weaning oxygen. Discussed with clerk telegraph service patient did have bronchial plug plus pleural effusion but will address. Will monitor serial x-rays. Discussed with nursing staff about my discussion with the brother. Continue supportive care. PER Brother,([phone] patient has had recurrent knee aspiration. Cardiology to re-evaluate today for Bradycardia noted overnight 11/14: Patient had a repeat bronchoscopy yesterday of the right lung due to mucous plug. [place]rier did have a conversation with the cousin as one of the considerations may be a trach due to recurrent pulmonary mucous plug and also significant debility for patient's overall medical condition. And his inability to maintain his airway. We will start him on a low round of D5 until diet is established. We will continue to monitor clinical status this morning. Plan discussed with nursing staff patient and also with medieval english literature professor 11/15: Continues to show some improvement, will check CXR today. Wean oxygen as tolerated, will likely need Trach per pulmonary. WBC improving, will monitor Sodium level. Patient on dopamin. 11/16: Patient overnight required intubation due to worsening respiratory failure secondary to complete opacification of the right lung again. This has appeared to cleared up this morning following the intuabation. Cousin advised of the finding, he will try to get us all his records because he believes that the patient has had a trach done before but is not sure. Started on Pressors due to hypotension 11/17: Today general surgery was consulted for trach/PEG placement, patient grew staph and tracheal aspirate and his cefepime was stopped and [facility] ordered a trial dose of Lasix. At the time my examination patient was on 1 mcg of fentanyl and dopamine 5 mcg/kg per cardiology. He has hyperchloremia and his lab work and is anemic today at 6.6/20.2. Patient received 1 unit PRBC. We will obtain a CBC in the a.m. 11/18: No acute events reported overnight, patient was given Lasix again by [facility], surgery has requested transfusion of one 1 unit PRBC despite H/H being 7.4/23.4 and plans to do a tracheostomy and plans to perform PEG and trach placement on 11/21/2020. We will follow up BMP and CBC in the a.m. Coags ordered. 11/19: Patient's next of kin still Mr. Buckley's next of kin/POA is still undecided about trach/PEG, surgeon aware. [facility] has given the patient another dose of Lasix and he was noted to be in atrial fibrillation with RVR this morning. Cardiology is aware and they have opted to resume amiodarone drip for rate control. We will obtain a BMP in the a.m. 11/20: At the time of examination patient remains on amiodarone 0.05 mcg and fentanyl 1 mcg on assist control tidal volume 500, rate 20, PEEP 6, FiO2 of 40%. Patient will have Lasix dose again. Dr. Quintanilla updated the family today. 11/21: Patient remains atrial fibrillation but is better rate controlled. Patient was taking to the OR for trach/PEG General surgery. No acute events reported overnight. Patient was given diuresed again and we will recheck a BMP in the a.m. 11/22. Patient tolerated tracheostomy. Alert no new concerns. Patient able to not that he is not in pain. 11/23 patient appears to be tolerating PEG tube feedings able to use tube feedings no new concerns over p.m. alert improving respiratory failure 11/24: No acute events overgnight. At the time my examination patient was on assist control tidal volume 500, rate 12, PEEP 6, FiO2 50%. Patient fentanyl drip discontinued and placed on IV push fentanyl 50 mcg every 2 hours. RN to remove right IJ. 11/25: Continue CPAP trials as tolerated, amiodarone decreased, midodrine and metoprolol initiated by cardiology. Patient had an episode of emesis however he denied being nauseous and did not have any emesis when trach suctioned. Patient remains afebrile. Midline was placed yesterday and IJ removed. Patient has leukocytosis but remains off of vasopressors, antibiotics and is febrile. At the time of examination patient is on assist control 21 500, rate 20, PEEP 6 and FiO2 45%. 11/26: Cardiology has increased his metoprolol and decreased his amiodarone due to soft blood pressures. Patient is adamant that he would like to go home. We will continue CPAP trials. Hospitalist Physical - Constitutional Vitals: Temp Pulse Resp BP Pulse Ox 98.3 F 90 30 H 118/70 96 11/27/20 12:00 11/27/20 12:54 11/27/20 11:22 11/27/20 11:22 11/27/20 11:22 General appearance: Present: no acute distress, other (Patient resting comfortably on vent) - EENT Eyes: Present: PERRL, EOM intact ENT: poor dentition - Neck Neck: Present: normal ROM - Respiratory Respiratory effort: normal Respiratory: bilateral: diminished - Cardiovascular Rhythm: regular Heart Sounds: Present: S1 & S2. Absent: systolic murmur, diastolic murmur - Extremities Extremities: no ischemia, pulses intact, pulses symmetrical, normal temperature, normal color, Full ROM Extremity abnormal: edema Peripheral Pulses: within normal limits - Abdominal General gastrointestinal: soft, non-tender, non-distended, normal bowel sounds - Integumentary Integumentary: Present: warm, dry - Psychiatric Psychiatric: cooperative - Neurologic Neurologic: no focal deficits, moves all extremities - Allied Health Allied health notes reviewed: nursing, RT, social work HEART Score - HEART Score EKG: Non-specific Age: > 65 Risk factors: > 3 risk factors or hx of atherosclerotic disease Troponin: Troponin T 0.123 ng/mL (0.00-0.029) H* 11/13/20 23:15 Troponin: < normal limit - Critical Actions Critical Actions: 4-6 pts:12-16.6% risk of adverse cardiac event. Should be admitted Results - Labs CBC & Chem 7: 11/27/20 05:55 11/27/20 05:55 Labs: Laboratory Last Values WBC 18.1 K/mm3 (4.5-11.0) H 11/27/20 05:55 RBC 2.48 M/mm3 (3.65-5.03) L 11/27/20 05:55 Hgb 7.8 gm/dl (11.8-15.2) L 11/27/20 05:55 Hct 23.9 % (35.5-45.6) L 11/27/20 05:55 MCV 97 fl (84-94) H 11/27/20 05:55 MCH 32 pg (28-32) 11/27/20 05:55 MCHC 33 % (32-34) 11/27/20 05:55 RDW 17.7 % (13.2-15.2) H 11/27/20 05:55 Plt Count 384 K/mm3 (140-440) 11/27/20 05:55 Lymph % (Auto) 9.1 % (13.4-35.0) L 11/09/20 06:00 Robertson % (Auto) 5.4 % (0.0-7.3) 11/09/20 06:00 Eos % (Auto) 0.3 % (0.0-4.3) 11/09/20 06:00 Baso % (Auto) 0.4 % (0.0-1.8) 11/09/20 06:00 Lymph # (Auto) 1.2 K/mm3 (1.2-5.4) 11/09/20 06:00 Robertson # (Auto) 0.7 K/mm3 (0.0-0.8) 11/09/20 06:00 Eos # (Auto) 0.0 K/mm3 (0.0-0.4) 11/09/20 06:00 Baso # (Auto) 0.0 K/mm3 (0.0-0.1) 11/09/20 06:00 Add Manual Diff Complete 11/23/20 10:23 Total Counted 100 11/23/20 10:23 Seg Neutrophils % 84.8 % (40.0-70.0) H 11/09/20 06:00 Seg Neuts % (Manual) 94.0 % (40.0-70.0) H 11/23/20 10:23 Band Neutrophils % 17.0 % 10/27/20 03:30 Lymphocytes % (Manual) 5.0 % (13.4-35.0) L 11/23/20 10:23 Monocytes % (Manual) 1.0 % (0.0-7.3) 11/23/20 10:23 Eosinophils % (Manual) 2.0 % (0.0-4.3) 10/27/20 03:30 Metamyelocytes % 4.0 % 10/27/20 03:30 Nucleated RBC % Not Reportable 11/23/20 10:23 Seg Neutrophils # 11.1 K/mm3 (1.8-7.7) H 11/09/20 06:00 Seg Neutrophils # Man 10.6 K/mm3 (1.8-7.7) H 11/23/20 10:23 Band Neutrophils # 0.0 K/mm3 11/23/20 10:23 Lymphocytes # (Manual) 0.6 K/mm3 (1.2-5.4) L 11/23/20 10:23 Abs React Lymphs (Man) 0.0 K/mm3 11/23/20 10:23 Monocytes # (Manual) 0.1 K/mm3 (0.0-0.8) 11/23/20 10:23 Eosinophils # (Manual) 0.0 K/mm3 (0.0-0.4) 11/23/20 10:23 Basophils # (Manual) 0.0 K/mm3 (0.0-0.1) 11/23/20 10:23 Metamyelocytes # 0.0 K/mm3 11/23/20 10:23 Myelocytes # 0.0 K/mm3 11/23/20 10:23 Promyelocytes # 0.0 K/mm3 11/23/20 10:23 Blast Cells # 0.0 K/mm3 11/23/20 10:23 WBC Morphology Not Reportable 11/23/20 10:23 Hypersegmented Neuts Not Reportable 11/23/20 10:23 Hyposegmented Neuts Not Reportable 11/23/20 10:23 Hypogranular Neuts Not Reportable 11/23/20 10:23 Smudge Cells Not Reportable 11/23/20 10:23 Toxic Granulation Not Reportable 11/23/20 10:23 Toxic Vacuolation Not Reportable 11/23/20 10:23 Dohle Bodies Not Reportable 11/23/20 10:23 Pelger-Huet Anomaly Not Reportable 11/23/20 10:23 Kassi Rods Not Reportable 11/23/20 10:23 Platelet Estimate Consistent w auto 11/23/20 10:23 Clumped Platelets Not Reportable 11/23/20 10:23 Plt Clumps, EDTA Not Reportable 11/23/20 10:23 Large Platelets Not Reportable 11/23/20 10:23 Giant Platelets Not Reportable 11/23/20 10:23 Platelet Satelliting Not Reportable 11/23/20 10:23 Plt Morphology Comment Not Reportable 11/23/20 10:23 RBC Morphology Normal 11/23/20 10:23 Dimorphic RBCs Not Reportable 11/23/20 10:23 Polychromasia Not Reportable 11/23/20 10:23 Hypochromasia Not Reportable 11/23/20 10:23 Poikilocytosis Not Reportable 11/23/20 10:23 Anisocytosis Not Reportable 11/23/20 10:23 Microcytosis Not Reportable 11/23/20 10:23 Macrocytosis Not Reportable 11/23/20 10:23 Spherocytes Not Reportable 11/23/20 10:23 Pappenheimer Bodies Not Reportable 11/23/20 10:23 Sickle Cells Not Reportable 11/23/20 10:23 Target Cells Not Reportable 11/23/20 10:23 Tear Drop Cells Not Reportable 11/23/20 10:23 Ovalocytes Not Reportable 11/23/20 10:23 Helmet Cells Not Reportable 11/23/20 10:23 [place] Bodies Not Reportable 11/23/20 10:23 [place] Rings Not Reportable 11/23/20 10:23 [place] Cells Not Reportable 11/23/20 10:23 Bite Cells Not Reportable 11/23/20 10:23 Crenated Cell Not Reportable 11/23/20 10:23 Elliptocytes Not Reportable 11/23/20 10:23 Acanthocytes (Spur) Not Reportable 11/23/20 10:23 Rouleaux Not Reportable 11/23/20 10:23 Hemoglobin C Crystals Not Reportable 11/23/20 10:23 Schistocytes Not Reportable 11/23/20 10:23 Malaria parasites Not Reportable 11/23/20 10:23 Richard Bodies Not Reportable 11/23/20 10:23 Hem Pathologist Commnt No 11/23/20 10:23 PT 14.7 Sec. (12.2-14.9) 11/19/20 06:36 INR 1.15 (0.87-1.13) H 11/19/20 06:36 APTT 27.9 Sec. (24.2-36.6) 10/26/20 17:25 Heparin Anti-Xa, Unfract Negative (Negative) 11/03/20 11:01 ABG pH 7.480 (7.320-7.450) H 11/25/20 16:25 POC ABG pCO2 43.1 mmHg (32.0-48.0) 11/25/20 16:25 ABG pCO2 43.4 mm Hg 11/19/20 Unknown POC ABG pO2 78.1 mmHg (83-108) L 11/25/20 16:25 ABG pO2 72.4 mm Hg (80.0-90.0) L 11/19/20 Unknown POC ABG HCO3 31.4 11/25/20 16:25 ABG HCO3 26.9 mmol/L (20.0-26.0) H 11/19/20 Unknown ABG O2 Saturation 96.0 (0-100) 11/25/20 16:25 ABG O2 Content 11.3 (0.0-44) 11/19/20 Unknown POC ABG Base Excess 7.2 11/25/20 16:25 ABG Base Excess 2.0 mmol/L (-2.0-3.0) 11/19/20 Unknown ABG Hemoglobin 8.5 (12.0-17.5) L 11/25/20 16:25 ABG Oxyhemoglobin 94.9 (94-98) 11/25/20 16:25 ABG Carboxyhemoglobin 2.0 % (0.0-5.0) 11/19/20 Unknown ABG Methemoglobin 0.3 (0.0-1.5) 11/25/20 16:25 ABG Sodium 137.5 mmol/L (136.0-145.0) 11/25/20 16:25 ABG Potassium 4.1 mmol/L (3.40-4.50) 11/25/20 16:25 ABG Chloride 105.0 mmol/L (98-107) 11/25/20 16:25 ABG Glucose 114 mg/dL (65-95) H 11/25/20 16:25 Oxyhemoglobin 94.1 % (95.0-99.0) L 11/19/20 Unknown Carboxyhemoglobin 0.8 (0.5-1.5) 11/25/20 16:25 FiO2 30 % 11/19/20 Unknown FiO2 % 45.0 11/25/20 16:25 Sodium 139 mmol/L (137-145) 11/27/20 05:55 Potassium 4.0 mmol/L (3.6-5.0) 11/27/20 05:55 Chloride 104.4 mmol/L (98-107) 11/27/20 05:55 Carbon Dioxide 32 mmol/L (22-30) H 11/27/20 05:55 Anion Gap 7 mmol/L 11/27/20 05:55 BUN 15 mg/dL (9-20) 11/27/20 05:55 Creatinine 0.4 mg/dL (0.8-1.3) L 11/27/20 05:55 Estimated GFR > 60 ml/min 11/27/20 05:55 BUN/Creatinine Ratio 38 % 11/27/20 05:55 Glucose 133 mg/dL (75-100) H 11/27/20 05:55 POC Glucose 111 mg/dL (70-105) H 11/27/20 11:41 Hemoglobin A1c 5.5 % (4-6) 10/27/20 04:42 Lactic Acid 4.30 mmol/L (0.7-2.0) H* 10/31/20 Unknown Calcium 7.5 mg/dL (8.4-10.2) L 11/27/20 05:55 Phosphorus 4.50 mg/dL (2.5-4.5) D 11/06/20 13:03 Magnesium 1.70 mg/dL (1.7-2.3) 11/21/20 09:47 Total Bilirubin < 0.20 mg/dL (0.1-1.2) 11/27/20 05:55 AST 8 units/L (5-40) 11/27/20 05:55 ALT 8 units/L (7-56) 11/27/20 05:55 Alkaline Phosphatase 87 units/L (35-129) 11/27/20 05:55 Total Creatine Kinase 31 units/L (55-170) L 10/26/20 17:28 Troponin T 0.123 ng/mL (0.00-0.029) H* 11/13/20 23:15 Total Protein 6.1 g/dL (6.3-8.2) L 11/27/20 05:55 Albumin 1.7 g/dL (3.9-5) L 11/27/20 05:55 Albumin/Globulin Ratio 0.4 % 11/27/20 05:55 Triglycerides 190 mg/dL (2-149) H 10/26/20 17:25 Cholesterol 92 mg/dL (50-199) 10/26/20 17:25 LDL Cholesterol Direct 33 mg/dL (50-130) L 10/26/20 17:25 HDL Cholesterol 18 mg/dL (40-59) L 10/26/20 17:25 Cholesterol/HDL Ratio 5.11 % 10/26/20 17:25 Serotonin Release Assay See scanned results 11/03/20 11:01 TSH 1.490 mlU/mL (0.270-4.200) 10/26/20 17:28 Arterial Blood Glucose 114 mg/dL (65-95) H 11/25/20 16:25 Arterial Blood Ionized Calcium 4.5 mg/dL (4.6-5.3) L 11/25/20 16:25 Urine Color Yellow (Yellow) 10/27/20 Unknown Urine Turbidity Turbid (Clear) 10/27/20 Unknown Urine pH 8.0 (5.0-7.0) H 10/27/20 Unknown Ur Specific [place] 1.020 (1.003-1.030) 10/27/20 Unknown Urine Protein >500 mg/dL (Negative) 10/27/20 Unknown Urine Glucose (UA) Neg mg/dL (Negative) 10/27/20 Unknown Urine Ketones Neg mg/dL (Negative) 10/27/20 Unknown Urine Blood Sm (Negative) 10/27/20 Unknown Urine Nitrite Neg (Negative) 10/27/20 Unknown Urine Bilirubin Neg (Negative) 10/27/20 Unknown Urine Urobilinogen < 2.0 mg/dL (<2.0) 10/27/20 Unknown Ur Leukocyte Esterase Mod (Negative) 10/27/20 Unknown Urine WBC (Auto) > 182.0 /HPF (0.0-6.0) H 10/27/20 Unknown Urine RBC (Auto) 35.0 /HPF (0.0-6.0) 10/27/20 Unknown Urine WBC Clumps 3+ /HPF 10/27/20 Unknown Urine Mucus 3+ /HPF 10/27/20 Unknown Urine Yeast (Budding) 3+ /HPF 10/27/20 Unknown Vancomycin Trough 18.0 ug/mL (5.0-20.0) 11/19/20 09:06 Salicylates < 0.3 mg/dL (2.8-20.0) L 10/26/20 17:28 Acetaminophen 5.0 ug/mL (10.0-30.0) L 10/26/20 17:28 Heparin-induced Plt Ab Negative (Negative) 11/03/20 11:01 UF Heparin High Dose 0 % Release 11/03/20 11:01 MOISES UFH Low Dose 0.1 2 % Release 11/03/20 11:01 MOISES UFH Low Dose 0.5 0 % Release 11/03/20 11:01 Coronavirus (PCR) Negative (Negative) 10/27/20 Unknown Blood Type O POSITIVE 11/17/20 11:10 Antibody Screen Negative 11/17/20 11:10 Crossmatch See Detail 11/17/20 11:10 Rivas/IV: Voiding Method Indwelling Catheter Active Medications - Current Medications Current Medications: Generic Name Dose Route Start Last Admin Trade Name Freq PRN Reason Stop Dose Admin Acetaminophen 650 mg 10/26/20 22:22 11/13/20 14:36 Acetaminophen 325 Mg Tab PO 650 mg Q4H PRN Administration Pain MILD(1-3)/Fever >100.5/TIERNEY Albuterol 2.5 mg 11/11/20 14:00 11/27/20 08:17 Albuterol 2.5 Mg/3 Ml Nebu IH 2.5 mg TIDRT MARSHALL Administration Amiodarone HCl 200 mg 11/25/20 10:00 11/27/20 09:21 Amiodarone 200 Mg Tab PO 200 mg BID MARSHALL Administration Lipase/Protease/Amylase 1 each 10/28/20 13:18 Lipase 10,500/Protease 25,000/Amylase 43,750 (Units) Dr Cap FEEDTUBE PRN PRN For Clogged Feeding Tube Enoxaparin Sodium 40 mg 11/22/20 22:00 11/26/20 21:32 Enoxaparin 40 Mg/0.4 Ml Inj SUB-Q 40 mg QDAY@2200 MARSHALL Administration Protocol Famotidine 20 mg 11/24/20 22:00 11/27/20 09:21 Famotidine 20 Mg Tab PO 20 mg BID MARSHALL Administration Fentanyl 50 mcg 11/15/20 22:30 11/27/20 02:38 Fentanyl 100 Mcg/2 Ml Inj IV 50 mcg Q10MIN PRN Administration ANALGESIA Hydrophilic Ointment 1 applic 11/15/20 22:30 Lip Therapy Vaseline TP Q2HR PRN Dry Lips Norepinephrine 4 mg in 250 mls @ 7.5 mls/hr 11/15/20 23:45 11/17/20 01:37 Levophed Drip 4 Mg/Ns 250 Ml IV 0 mcg/min TITR MARSHALL 0 mls/hr Titration Protocol 2 MCG/MIN Metoprolol Tartrate 12.5 mg 11/26/20 12:00 11/27/20 12:54 Metoprolol Tartrate 25 Mg Tab PO 12.5 mg Q6HR MARSHALL Administration Midodrine 10 mg 11/06/20 12:00 11/27/20 12:54 Midodrine 5 Mg Tab PO 10 mg TID@0800,1200,1600 [facility] Administration Multi-Ingred Cream/Lotion/Oil/Oint 1 applic 11/15/20 22:30 Mineral Oil/Petrolatum, White Ophth Oint 3.5 Gm OU Q4HR PRN Dry Eye(s) Simple Syrup 15 ml 10/28/20 13:18 11/10/20 16:01 Simple Syrup 15 Ml FEEDTUBE 15 ml PRN PRN Administration Hypoglycemia Simple Syrup 30 ml 10/28/20 13:18 Simple Syrup 15 Ml FEEDTUBE PRN PRN Hypoglycemia Sodium Bicarbonate 325 mg 10/28/20 13:18 Sodium Bicarbonate 325 Mg Tab FEEDTUBE PRN PRN For Clogged Feeding Tube Sodium Hypochlorite 1 applic 10/28/20 10:00 11/26/20 21:34 Sodium Hypochlorite, Dakin's 1/2 Strength (0.25%) 473 Ml Topical Soln TP 1 applicatio BID MARSHALL Administration Nutrition/Malnutrition Assess - Dietary Evaluation Nutrition/Malnutrition Findings: Nutrition Notes Start: 10/27/20 09:15 Freq: Status: Active Protocol: Document 11/25/20 14:43 CW (Rec: 11/25/20 14:55 CW [id number]) Nutrition Notes Need for Assessment generated from: MD Order Current Diagnosis Acute Kidney Injury,Decubitus( Pressure Ulcer),Sepsis, Hypertension,Respiratory Failure,Hyperlipidemia Other Pertinent Diagnosis AMS, MRSA, Encephalopathy, Metabiloc Acidosis, pneu ,FTT Current Diet Promote at 80 ml/hr Labs/Tests no new labs Pertinent Medications reviewed Height 6 ft 2 in Weight 85 kg Stella Body Weight (kg) 86.36 BMI 24.0 Weight Status Obese Subjective/Other Information F/U for TF tolerance. Pt had events of emesis. Will change TF for tolerance and wound healing. Diarrhea likely r/t ABTx Percent of energy/protein needs met: 94%/82% (1750 ml) Burn Absent Trauma Absent GI Symptoms Diarrhea Difficulty In Swallowing,Chewing Skin Integrity/Comment Multiple pressure ulcer,1 infected Current % PO Negligible Minimum of two criteria No Fluid Accumulation Moderate to Severe (severe) #2 Nutrition Diagnosis Increased nutrient needs ( specify in comment below) Diagnosis Progress(for reassessment Continues documentation) #1 Nutrition Diagnosis Inadequate oral intake Diagnosis Progress(for reassessment Continues documentation) Is patient on ventilator? Yes Is Patient Ambulatory and/or Out of Bed No REE-([facility]-confined to bed) 1984.976 Kcal/Kg value to use for calculation 22 Approximate Energy Requirements Using 1870 kcal/Kg Calculation Used for Recommendations Kcal/kg Additional Notes protein needs: 133 - 167g(1.2 - 1.5 g/kgAdBW 111) Fluid needs 1 ml/kcal Nutrition Intervention Change Diet Order: Change TF to Vital AF Nutrition Support: Vital AF at 70 ml/hr with a free water flush of 115 ml q4h Kcal 2,016 Protein (gm) 126 Fluid (mL) 1,362 Goal #1 TF change adn tolerance tolerance Goal #2 Meet at least 75% EER and protein needs via TF Goal #3 wound healing Anticipated Discharge Needs: TF Follow-Up By: 11/27/20 Additional Comments F/U for TF change, tolerance, and at goal
[2020-11-27] MEDS: SODIUM HYPOCHLORITE, DAKIN'S 1/2 STRENGTH (0.25%) 473 ML TOPICAL SOLN TP SCH ×2 (16:49→22:55)
--- NOTE | 2020-11-27 16:50 | Progress Note ---
Assessment and Plan Imp: 1. UTI/bacteremia 2. Aspiration/MRSA pneumonia 3. Severe sepsis 4. FAZAL 5. Acute respiratory failure, hypoxia 6. Hypernatremia 7. Poor airway clearance Rec: 1. Finished ABX; monitor closely; ID following 2. Cont. Albuterol nebs plus CPT vest 3. TFs 4. Transfuse if H/H less than 7.0/21.0 5. Lovenox and Pepcid for PPx 6. CXR in AM 7. Likely would benefit from more diuresis 8. PSV trials -> Tpiece soon 9. LTAC placement pending 10. CCT 31 minutes No family present Subjective Date of service: 11/27/20 Principal diagnosis: Acute Resp Fail, PNA, Septic Shock, Sacral Ulcer, AF with RVR Interval history: Awake, alert. On PSV 05/06 today and tolerating well. Unable to provide any history. Active Medications Acetaminophen (Acetaminophen 325 Mg Tab) 650 mg PO Q4H PRN PRN Reason: Pain MILD(1-3)/Fever >100.5/TIERNEY Last Admin: 11/13/20 14:36 Dose: 650 mg Documented by: Albuterol (Albuterol 2.5 Mg/3 Ml Nebu) 2.5 mg IH TIDRT [facility] Last Admin: 11/27/20 14:08 Dose: 2.5 mg Documented by: Amiodarone HCl (Amiodarone 200 Mg Tab) 200 mg PO BID [facility] Last Admin: 11/27/20 09:21 Dose: 200 mg Documented by: Lipase/Protease/Amylase (Lipase 10,500/Protease 25,000/Amylase 43,750 (Units) Dr Casper) 1 each FEEDTUBE PRN PRN PRN Reason: For Clogged Feeding Tube Enoxaparin Sodium (Enoxaparin 40 Mg/0.4 Ml Inj) 40 mg SUB-Q QDAY@2200 [facility]; Protocol Last Admin: 11/26/20 21:32 Dose: 40 mg Documented by: Famotidine (Famotidine 20 Mg Tab) 20 mg PO BID [facility] Last Admin: 11/27/20 09:21 Dose: 20 mg Documented by: Fentanyl (Fentanyl 100 Mcg/2 Ml Inj) 50 mcg IV Q10MIN PRN PRN Reason: ANALGESIA Last Admin: 11/27/20 02:38 Dose: 50 mcg Documented by: Hydrophilic Ointment (Lip Therapy Vaseline) 1 applic TP Q2HR PRN PRN Reason: Dry Lips Norepinephrine (Levophed Drip 4 Mg/Ns 250 Ml) 4 mg in 250 mls @ 7.5 mls/hr IV TITR [facility]; Protocol Last Titration: 11/17/20 01:37 Dose: 0 mcg/min, 0 mls/hr Documented by: Metoprolol Tartrate (Metoprolol Tartrate 25 Mg Tab) 12.5 mg PO Q6HR [facility] Last Admin: 11/27/20 12:54 Dose: 12.5 mg Documented by: Midodrine (Midodrine 5 Mg Tab) 10 mg PO TID@0800,1200,1600 [facility] Last Admin: 11/27/20 12:54 Dose: 10 mg Documented by: Multi-Ingred Cream/Lotion/Oil/Oint (Mineral Oil/Petrolatum, White Ophth Oint 3.5 Gm) 1 applic OU Q4HR PRN PRN Reason: Dry Eye(s) Simple Syrup (Simple Syrup 15 Ml) 15 ml FEEDTUBE PRN PRN PRN Reason: Hypoglycemia Last Admin: 11/10/20 16:01 Dose: 15 ml Documented by: Simple Syrup (Simple Syrup 15 Ml) 30 ml FEEDTUBE PRN PRN PRN Reason: Hypoglycemia Sodium Bicarbonate (Sodium Bicarbonate 325 Mg Tab) 325 mg FEEDTUBE PRN PRN PRN Reason: For Clogged Feeding Tube Sodium Hypochlorite (Sodium Hypochlorite, [place]'s 1/2 Strength (0.25%) 473 Ml Topical Soln) 1 applic TP BID [facility] Last Admin: 11/26/20 21:34 Dose: 1 applicatio Documented by: Objective Vital Signs - 12hr 11/27/20 11/27/20 11/27/20 05:00 05:25 05:30 Temperature Pulse Rate 99 H 99 H 102 H Pulse Rate [ Anterior Bilateral Throughout] Respiratory 17 12 Rate Respiratory Rate [Anterior Bilateral Throughout] Blood Pressure 105/66 104/66 110/73 O2 Sat by Pulse 94 94 Oximetry O2 Sat by Pulse 94 Oximetry [ Assessment] 11/27/20 11/27/20 11/27/20 06:00 06:13 06:21 Temperature Pulse Rate 104 H 100 H 100 H Pulse Rate [ Anterior Bilateral Throughout] Respiratory 13 Rate Respiratory Rate [Anterior Bilateral Throughout] Blood Pressure 112/65 112/65 112/65 O2 Sat by Pulse Oximetry O2 Sat by Pulse Oximetry [ Assessment] 11/27/20 11/27/20 11/27/20 06:30 07:00 07:30 Temperature Pulse Rate 102 H 91 H 89 Pulse Rate [ Anterior Bilateral Throughout] Respiratory 12 12 8 L Rate Respiratory Rate [Anterior Bilateral Throughout] Blood Pressure 104/65 101/67 111/67 O2 Sat by Pulse 94 98 96 Oximetry O2 Sat by Pulse Oximetry [ Assessment] 11/27/20 11/27/20 11/27/20 08:00 08:17 08:30 Temperature 98.5 F Pulse Rate 88 90 Pulse Rate [ 91 H Anterior Bilateral Throughout] Respiratory 10 L Rate Respiratory 16 Rate [Anterior Bilateral Throughout] Blood Pressure 104/64 104/64 101/66 O2 Sat by Pulse 98 97 Oximetry O2 Sat by Pulse Oximetry [ Assessment] 11/27/20 11/27/20 11/27/20 09:00 09:30 10:01 Temperature Pulse Rate 96 H 90 98 H Pulse Rate [ Anterior Bilateral Throughout] Respiratory 29 H 31 H 32 H Rate Respiratory Rate [Anterior Bilateral Throughout] Blood Pressure 117/63 113/66 108/69 O2 Sat by Pulse 98 95 89 Oximetry O2 Sat by Pulse Oximetry [ Assessment] 11/27/20 11/27/20 11/27/20 10:30 11:00 11:22 Temperature Pulse Rate 93 H 96 H 100 H Pulse Rate [ Anterior Bilateral Throughout] Respiratory 34 H 26 H 30 H Rate Respiratory Rate [Anterior Bilateral Throughout] Blood Pressure 125/64 118/70 118/70 O2 Sat by Pulse 95 99 96 Oximetry O2 Sat by Pulse Oximetry [ Assessment] 11/27/20 11/27/20 11/27/20 11:30 12:00 12:30 Temperature 98.3 F Pulse Rate 90 95 H 96 H Pulse Rate [ Anterior Bilateral Throughout] Respiratory 27 H 32 H 12 Rate Respiratory Rate [Anterior Bilateral Throughout] Blood Pressure 118/67 111/67 119/69 O2 Sat by Pulse 96 Oximetry O2 Sat by Pulse Oximetry [ Assessment] 11/27/20 11/27/20 11/27/20 12:54 13:00 13:30 Temperature Pulse Rate 90 104 H 95 H Pulse Rate [ Anterior Bilateral Throughout] Respiratory 23 18 Rate Respiratory Rate [Anterior Bilateral Throughout] Blood Pressure 123/64 115/66 O2 Sat by Pulse 89 90 Oximetry O2 Sat by Pulse Oximetry [ Assessment] 11/27/20 11/27/20 11/27/20 14:00 14:08 14:30 Temperature Pulse Rate 82 92 H Pulse Rate [ 94 H Anterior Bilateral Throughout] Respiratory 29 H 20 Rate Respiratory 22 Rate [Anterior Bilateral Throughout] Blood Pressure 113/68 112/67 O2 Sat by Pulse 92 100 Oximetry O2 Sat by Pulse Oximetry [ Assessment] 11/27/20 11/27/20 11/27/20 14:47 15:00 15:19 Temperature Pulse Rate 95 H 98 H Pulse Rate [ Anterior Bilateral Throughout] Respiratory 30 H 16 Rate Respiratory Rate [Anterior Bilateral Throughout] Blood Pressure 104/62 104/62 O2 Sat by Pulse 88 93 Oximetry O2 Sat by Pulse 98 Oximetry [ Assessment] 11/27/20 11/27/20 11/27/20 15:30 16:01 16:41 Temperature 98.3 F Pulse Rate 97 H 104 H Pulse Rate [ Anterior Bilateral Throughout] Respiratory 22 35 H Rate Respiratory Rate [Anterior Bilateral Throughout] Blood Pressure 104/62 109/63 O2 Sat by Pulse 92 95 Oximetry O2 Sat by Pulse Oximetry [ Assessment] Constitutional: alert, other (trach on vent) Eyes: non-icteric ENT: oropharynx moist Neck: supple Effort: normal Ascultation: Bilateral: rhonchi Cardiovascular: regular rate and rhythm (no mrg) Gastrointestinal: normoactive bowel sounds, soft, non-tender Extremities: no cyanosis, cool, anasarca Neurologic: normal mental status, non-focal exam Psychiatric: mood appropriate, affect normal CBC and BMP: 11/27/20 05:55 11/27/20 05:55 ABG, PT/INR, D-dimer: ABG ABG pH 7.480 (7.320-7.450) H 11/25/20 16:25 POC ABG pCO2 43.1 mmHg (32.0-48.0) 11/25/20 16:25 ABG pCO2 43.4 mm Hg 11/19/20 Unknown POC ABG pO2 78.1 mmHg (83-108) L 11/25/20 16:25 ABG pO2 72.4 mm Hg (80.0-90.0) L 11/19/20 Unknown POC ABG HCO3 31.4 11/25/20 16:25 ABG O2 Saturation 96.0 (0-100) 11/25/20 16:25 PT/INR, D-dimer PT 14.7 Sec. (12.2-14.9) 11/19/20 06:36 INR 1.15 (0.87-1.13) H 11/19/20 06:36 Abnormal lab findings: Abnormal Labs 10/26/20 10/26/20 10/26/20 17:25 17:25 17:25 WBC 23.3 H RBC 3.10 L Hgb 9.6 L Hct 30.3 L MCV 98 H MCH MCHC RDW 17.4 H Plt Count 521 H Lymph % (Auto) Seg Neutrophils % Seg Neuts % (Manual) 78.0 H Lymphocytes % (Manual) 11.0 L Nucleated RBC % Seg Neutrophils # Seg Neutrophils # Man 18.2 H Lymphocytes # (Manual) Monocytes # (Manual) 1.4 H PT INR ABG pH POC ABG pCO2 POC ABG pO2 ABG pO2 ABG HCO3 ABG O2 Saturation ABG Base Excess ABG Hemoglobin ABG Oxyhemoglobin ABG Sodium ABG Potassium ABG Chloride ABG Glucose Oxyhemoglobin Carboxyhemoglobin Sodium 148 H Potassium Chloride 109.3 H Carbon Dioxide 19 L BUN 57 H Creatinine 1.5 H Glucose 151 H POC Glucose Lactic Acid 9.60 H* Calcium Phosphorus Magnesium Total Creatine Kinase Troponin T 0.062 H Total Protein Albumin 1.7 L Triglycerides 190 H LDL Cholesterol Direct 33 L HDL Cholesterol 18 L Arterial Blood Glucose Arterial Blood Ionized Calcium Urine pH Urine WBC (Auto) Vancomycin Trough Salicylates Acetaminophen Crossmatch 10/26/20 10/26/20 10/26/20 17:28 17:28 17:28 WBC RBC Hgb Hct MCV MCH MCHC RDW Plt Count Lymph % (Auto) Seg Neutrophils % Seg Neuts % (Manual) Lymphocytes % (Manual) Nucleated RBC % Seg Neutrophils # Seg Neutrophils # Man Lymphocytes # (Manual) Monocytes # (Manual) PT INR ABG pH POC ABG pCO2 POC ABG pO2 ABG pO2 ABG HCO3 ABG O2 Saturation ABG Base Excess ABG Hemoglobin ABG Oxyhemoglobin ABG Sodium ABG Potassium ABG Chloride ABG Glucose Oxyhemoglobin Carboxyhemoglobin Sodium Potassium Chloride Carbon Dioxide BUN Creatinine Glucose POC Glucose Lactic Acid Calcium Phosphorus Magnesium Total Creatine Kinase 31 L Troponin T Total Protein Albumin Triglycerides LDL Cholesterol Direct HDL Cholesterol Arterial Blood Glucose Arterial Blood Ionized Calcium Urine pH Urine WBC (Auto) Vancomycin Trough Salicylates < 0.3 L Acetaminophen 5.0 L Crossmatch 10/26/20 10/26/20 10/26/20 17:30 20:11 22:00 WBC RBC Hgb Hct MCV MCH MCHC RDW Plt Count Lymph % (Auto) Seg Neutrophils % Seg Neuts % (Manual) Lymphocytes % (Manual) Nucleated RBC % Seg Neutrophils # Seg Neutrophils # Man Lymphocytes # (Manual) Monocytes # (Manual) PT INR ABG pH 7.235 L POC ABG pCO2 POC ABG pO2 ABG pO2 312.4 H ABG HCO3 16.4 L ABG O2 Saturation 99.5 H ABG Base Excess -10.4 L ABG Hemoglobin 11.0 L ABG Oxyhemoglobin ABG Sodium ABG Potassium ABG Chloride ABG Glucose Oxyhemoglobin Carboxyhemoglobin Sodium Potassium Chloride Carbon Dioxide BUN Creatinine Glucose POC Glucose Lactic Acid 7.70 H* 6.40 H* Calcium Phosphorus Magnesium Total Creatine Kinase Troponin T Total Protein Albumin Triglycerides LDL Cholesterol Direct HDL Cholesterol Arterial Blood Glucose Arterial Blood Ionized Calcium Urine pH Urine WBC (Auto) Vancomycin Trough Salicylates Acetaminophen Crossmatch 10/27/20 10/27/20 10/27/20 03:25 03:30 04:00 WBC 20.3 H RBC 3.10 L Hgb 9.6 L Hct 30.6 L MCV 99 H MCH MCHC 31 L RDW 16.9 H Plt Count Lymph % (Auto) Seg Neutrophils % Seg Neuts % (Manual) Lymphocytes % (Manual) Nucleated RBC % Seg Neutrophils # Seg Neutrophils # Man 11.6 H Lymphocytes # (Manual) Monocytes # (Manual) PT INR ABG pH 7.218 L POC ABG pCO2 POC ABG pO2 62.9 L ABG pO2 ABG HCO3 ABG O2 Saturation ABG Base Excess ABG Hemoglobin 10.6 L ABG Oxyhemoglobin 86.6 L ABG Sodium ABG Potassium 4.8 H ABG Chloride 114.0 H ABG Glucose 116 H Oxyhemoglobin Carboxyhemoglobin 0.4 L Sodium Potassium Chloride 110.2 H Carbon Dioxide 17 L BUN 55 H Creatinine 1.5 H Glucose 109 H POC Glucose Lactic Acid Calcium 7.9 L Phosphorus Magnesium Total Creatine Kinase Troponin T Total Protein Albumin 1.3 L Triglycerides LDL Cholesterol Direct HDL Cholesterol Arterial Blood Glucose 116 H Arterial Blood Ionized Calcium Urine pH Urine WBC (Auto) Vancomycin Trough Salicylates Acetaminophen Crossmatch 03/29/21 03/30/21 03/30/21 Unknown 00:40 00:40 WBC 23.1 H RBC 2.42 L Hgb 7.5 L Hct 23.7 L D MCV 98 H MCH MCHC RDW 16.8 H Plt Count Lymph % (Auto) Seg Neutrophils % Seg Neuts % (Manual) Lymphocytes % (Manual) Nucleated RBC % Seg Neutrophils # Seg Neutrophils # Man Lymphocytes # (Manual) Monocytes # (Manual) PT INR ABG pH POC ABG pCO2 POC ABG pO2 ABG pO2 ABG HCO3 ABG O2 Saturation ABG Base Excess ABG Hemoglobin ABG Oxyhemoglobin ABG Sodium ABG Potassium ABG Chloride ABG Glucose Oxyhemoglobin Carboxyhemoglobin Sodium Potassium Chloride 111.4 H Carbon Dioxide 19 L BUN 49 H Creatinine Glucose POC Glucose Lactic Acid Calcium 7.3 L Phosphorus Magnesium 1.40 L Total Creatine Kinase Troponin T Total Protein 5.8 L Albumin 1.2 L Triglycerides LDL Cholesterol Direct HDL Cholesterol Arterial Blood Glucose Arterial Blood Ionized Calcium Urine pH 8.0 H Urine WBC (Auto) > 182.0 H Vancomycin Trough Salicylates Acetaminophen Crossmatch 10/28/20 10/28/20 10/28/20 03:30 05:36 05:36 WBC RBC Hgb Hct MCV MCH MCHC RDW Plt Count Lymph % (Auto) Seg Neutrophils % Seg Neuts % (Manual) Lymphocytes % (Manual) Nucleated RBC % Seg Neutrophils # Seg Neutrophils # Man Lymphocytes # (Manual) Monocytes # (Manual) PT INR ABG pH 7.175 L POC ABG pCO2 POC ABG pO2 71.5 L ABG pO2 ABG HCO3 ABG O2 Saturation ABG Base Excess ABG Hemoglobin 8.8 L ABG Oxyhemoglobin ABG Sodium ABG Potassium 4.7 H ABG Chloride 114.0 H ABG Glucose 100 H Oxyhemoglobin Carboxyhemoglobin Sodium Potassium Chloride 114.6 H Carbon Dioxide 15 L BUN 48 H Creatinine 1.4 H Glucose POC Glucose Lactic Acid 7.60 H* Calcium 7.7 L Phosphorus Magnesium Total Creatine Kinase Troponin T Total Protein Albumin Triglycerides LDL Cholesterol Direct HDL Cholesterol Arterial Blood Glucose 100 H Arterial Blood Ionized Calcium 4.4 L Urine pH Urine WBC (Auto) Vancomycin Trough Salicylates Acetaminophen Crossmatch 10/28/20 10/28/20 10/29/20 17:18 23:18 03:50 WBC RBC Hgb Hct MCV MCH MCHC RDW Plt Count Lymph % (Auto) Seg Neutrophils % Seg Neuts % (Manual) Lymphocytes % (Manual) Nucleated RBC % Seg Neutrophils # Seg Neutrophils # Man Lymphocytes # (Manual) Monocytes # (Manual) PT INR ABG pH POC ABG pCO2 30.0 L POC ABG pO2 ABG pO2 ABG HCO3 ABG O2 Saturation ABG Base Excess ABG Hemoglobin 8.1 L ABG Oxyhemoglobin ABG Sodium ABG Potassium ABG Chloride 113.0 H ABG Glucose 153 H Oxyhemoglobin Carboxyhemoglobin 0.4 L Sodium Potassium Chloride Carbon Dioxide BUN Creatinine Glucose POC Glucose 134 H 149 H Lactic Acid Calcium Phosphorus Magnesium Total Creatine Kinase Troponin T Total Protein Albumin Triglycerides LDL Cholesterol Direct HDL Cholesterol Arterial Blood Glucose 153 H Arterial Blood Ionized Calcium 4.1 L Urine pH Urine WBC (Auto) Vancomycin Trough Salicylates Acetaminophen Crossmatch 10/29/20 10/29/20 10/29/20 05:09 05:15 05:15 WBC 23.9 H RBC 2.66 L Hgb 8.3 L Hct 26.3 L MCV 99 H MCH MCHC RDW 17.5 H Plt Count Lymph % (Auto) Seg Neutrophils % Seg Neuts % (Manual) Lymphocytes % (Manual) Nucleated RBC % Seg Neutrophils # Seg Neutrophils # Man Lymphocytes # (Manual) Monocytes # (Manual) PT INR ABG pH POC ABG pCO2 POC ABG pO2 ABG pO2 ABG HCO3 ABG O2 Saturation ABG Base Excess ABG Hemoglobin ABG Oxyhemoglobin ABG Sodium ABG Potassium ABG Chloride ABG Glucose Oxyhemoglobin Carboxyhemoglobin Sodium Potassium Chloride 110.4 H Carbon Dioxide 15 L BUN 40 H Creatinine Glucose 140 H POC Glucose 123 H Lactic Acid Calcium 7.0 L Phosphorus Magnesium Total Creatine Kinase Troponin T Total Protein 6.0 L Albumin 1.0 L Triglycerides LDL Cholesterol Direct HDL Cholesterol Arterial Blood Glucose Arterial Blood Ionized Calcium Urine pH Urine WBC (Auto) Vancomycin Trough Salicylates Acetaminophen Crossmatch 10/29/20 10/29/20 10/29/20 05:15 10:37 11:41 WBC RBC Hgb Hct MCV MCH MCHC RDW Plt Count Lymph % (Auto) Seg Neutrophils % Seg Neuts % (Manual) Lymphocytes % (Manual) Nucleated RBC % Seg Neutrophils # Seg Neutrophils # Man Lymphocytes # (Manual) Monocytes # (Manual) PT INR ABG pH POC ABG pCO2 POC ABG pO2 ABG pO2 ABG HCO3 ABG O2 Saturation ABG Base Excess ABG Hemoglobin ABG Oxyhemoglobin ABG Sodium ABG Potassium ABG Chloride ABG Glucose Oxyhemoglobin Carboxyhemoglobin Sodium Potassium Chloride Carbon Dioxide BUN Creatinine Glucose POC Glucose 121 H Lactic Acid 9.90 H* 10.90 H* Calcium Phosphorus Magnesium Total Creatine Kinase Troponin T Total Protein Albumin Triglycerides LDL Cholesterol Direct HDL Cholesterol Arterial Blood Glucose Arterial Blood Ionized Calcium Urine pH Urine WBC (Auto) Vancomycin Trough Salicylates Acetaminophen Crossmatch 10/29/20 10/29/20 10/30/20 15:56 23:24 02:26 WBC RBC Hgb Hct MCV MCH MCHC RDW Plt Count Lymph % (Auto) Seg Neutrophils % Seg Neuts % (Manual) Lymphocytes % (Manual) Nucleated RBC % Seg Neutrophils # Seg Neutrophils # Man Lymphocytes # (Manual) Monocytes # (Manual) PT INR ABG pH POC ABG pCO2 POC ABG pO2 76.6 L ABG pO2 ABG HCO3 ABG O2 Saturation ABG Base Excess ABG Hemoglobin 6.4 L ABG Oxyhemoglobin 93.8 L ABG Sodium ABG Potassium 2.9 L ABG Chloride 110.0 H ABG Glucose 212 H Oxyhemoglobin Carboxyhemoglobin Sodium Potassium Chloride Carbon Dioxide BUN Creatinine Glucose POC Glucose 132 H 175 H Lactic Acid Calcium Phosphorus Magnesium Total Creatine Kinase Troponin T Total Protein Albumin Triglycerides LDL Cholesterol Direct HDL Cholesterol Arterial Blood Glucose 212 H Arterial Blood Ionized Calcium 3.9 L Urine pH Urine WBC (Auto) Vancomycin Trough Salicylates Acetaminophen Crossmatch 10/30/20 10/30/20 10/30/20 04:54 04:54 05:14 WBC 20.7 H RBC 2.28 L Hgb 7.0 L Hct 21.9 L MCV 96 H MCH MCHC RDW 17.0 H Plt Count 90 L Lymph % (Auto) Seg Neutrophils % Seg Neuts % (Manual) Lymphocytes % (Manual) Nucleated RBC % Seg Neutrophils # Seg Neutrophils # Man Lymphocytes # (Manual) Monocytes # (Manual) PT INR ABG pH POC ABG pCO2 POC ABG pO2 ABG pO2 ABG HCO3 ABG O2 Saturation ABG Base Excess ABG Hemoglobin ABG Oxyhemoglobin ABG Sodium ABG Potassium ABG Chloride ABG Glucose Oxyhemoglobin Carboxyhemoglobin Sodium Potassium 3.0 L D Chloride Carbon Dioxide BUN 28 H Creatinine 0.6 L Glucose 214 H POC Glucose 187 H Lactic Acid Calcium 6.2 L Phosphorus Magnesium Total Creatine Kinase Troponin T Total Protein Albumin Triglycerides LDL Cholesterol Direct HDL Cholesterol Arterial Blood Glucose Arterial Blood Ionized Calcium Urine pH Urine WBC (Auto) Vancomycin Trough Salicylates Acetaminophen Crossmatch 10/30/20 10/30/20 10/30/20 09:30 11:40 17:51 WBC RBC Hgb Hct MCV MCH MCHC RDW Plt Count Lymph % (Auto) Seg Neutrophils % Seg Neuts % (Manual) Lymphocytes % (Manual) Nucleated RBC % Seg Neutrophils # Seg Neutrophils # Man Lymphocytes # (Manual) Monocytes # (Manual) PT INR ABG pH POC ABG pCO2 POC ABG pO2 ABG pO2 ABG HCO3 ABG O2 Saturation ABG Base Excess ABG Hemoglobin ABG Oxyhemoglobin ABG Sodium ABG Potassium ABG Chloride ABG Glucose Oxyhemoglobin Carboxyhemoglobin Sodium Potassium Chloride Carbon Dioxide BUN Creatinine Glucose POC Glucose 183 H 136 H Lactic Acid Calcium Phosphorus Magnesium Total Creatine Kinase Troponin T Total Protein Albumin Triglycerides LDL Cholesterol Direct HDL Cholesterol Arterial Blood Glucose Arterial Blood Ionized Calcium Urine pH Urine WBC (Auto) Vancomycin Trough Salicylates Acetaminophen Crossmatch See Detail 10/30/20 10/30/20 10/30/20 18:53 23:25 Unknown WBC RBC Hgb Hct MCV MCH MCHC RDW Plt Count Lymph % (Auto) Seg Neutrophils % Seg Neuts % (Manual) Lymphocytes % (Manual) Nucleated RBC % Seg Neutrophils # Seg Neutrophils # Man Lymphocytes # (Manual) Monocytes # (Manual) PT INR ABG pH POC ABG pCO2 POC ABG pO2 ABG pO2 ABG HCO3 ABG O2 Saturation ABG Base Excess ABG Hemoglobin ABG Oxyhemoglobin ABG Sodium ABG Potassium ABG Chloride ABG Glucose Oxyhemoglobin Carboxyhemoglobin Sodium Potassium Chloride Carbon Dioxide BUN Creatinine Glucose POC Glucose 130 H Lactic Acid Calcium Phosphorus Magnesium Total Creatine Kinase Troponin T Total Protein Albumin Triglycerides LDL Cholesterol Direct HDL Cholesterol Arterial Blood Glucose Arterial Blood Ionized Calcium Urine pH Urine WBC (Auto) Vancomycin Trough 21.4 H 22.0 H Salicylates Acetaminophen Crossmatch 10/30/20 10/31/20 10/31/20 Unknown 02:54 03:42 WBC 21.1 H 23.0 H RBC 2.36 L Hgb 7.3 L 11.4 L D Hct 22.7 L 34.1 L D MCV 96 H MCH MCHC RDW 17.1 H 16.2 H Plt Count 73 L 33 L Lymph % (Auto) Seg Neutrophils % Seg Neuts % (Manual) Lymphocytes % (Manual) Nucleated RBC % Seg Neutrophils # Seg Neutrophils # Man Lymphocytes # (Manual) Monocytes # (Manual) PT INR ABG pH 7.517 H POC ABG pCO2 25.7 L POC ABG pO2 52.3 L ABG pO2 ABG HCO3 ABG O2 Saturation ABG Base Excess ABG Hemoglobin ABG Oxyhemoglobin 90.8 L ABG Sodium ABG Potassium ABG Chloride 109.0 H ABG Glucose 147 H Oxyhemoglobin Carboxyhemoglobin Sodium Potassium Chloride Carbon Dioxide BUN Creatinine Glucose POC Glucose Lactic Acid Calcium Phosphorus Magnesium Total Creatine Kinase Troponin T Total Protein Albumin Triglycerides LDL Cholesterol Direct HDL Cholesterol Arterial Blood Glucose 147 H Arterial Blood Ionized Calcium 4.0 L Urine pH Urine WBC (Auto) Vancomycin Trough Salicylates Acetaminophen Crossmatch 10/31/20 10/31/20 10/31/20 04:37 04:37 05:08 WBC 21.7 H RBC Hgb Hct MCV MCH MCHC RDW 16.1 H Plt Count 39 L Lymph % (Auto) Seg Neutrophils % Seg Neuts % (Manual) Lymphocytes % (Manual) Nucleated RBC % Seg Neutrophils # Seg Neutrophils # Man Lymphocytes # (Manual) Monocytes # (Manual) PT INR ABG pH POC ABG pCO2 POC ABG pO2 ABG pO2 ABG HCO3 ABG O2 Saturation ABG Base Excess ABG Hemoglobin ABG Oxyhemoglobin ABG Sodium ABG Potassium ABG Chloride ABG Glucose Oxyhemoglobin Carboxyhemoglobin Sodium Potassium Chloride 108.4 H Carbon Dioxide BUN 25 H Creatinine 0.5 L Glucose 140 H POC Glucose 140 H Lactic Acid Calcium 6.1 L Phosphorus Magnesium 1.50 L Total Creatine Kinase Troponin T Total Protein Albumin Triglycerides LDL Cholesterol Direct HDL Cholesterol Arterial Blood Glucose Arterial Blood Ionized Calcium Urine pH Urine WBC (Auto) Vancomycin Trough Salicylates Acetaminophen Crossmatch 10/31/20 10/31/20 10/31/20 11:12 18:50 23:21 WBC RBC Hgb Hct MCV MCH MCHC RDW Plt Count Lymph % (Auto) Seg Neutrophils % Seg Neuts % (Manual) Lymphocytes % (Manual) Nucleated RBC % Seg Neutrophils # Seg Neutrophils # Man Lymphocytes # (Manual) Monocytes # (Manual) PT INR ABG pH POC ABG pCO2 POC ABG pO2 ABG pO2 ABG HCO3 ABG O2 Saturation ABG Base Excess ABG Hemoglobin ABG Oxyhemoglobin ABG Sodium ABG Potassium ABG Chloride ABG Glucose Oxyhemoglobin Carboxyhemoglobin Sodium Potassium Chloride Carbon Dioxide BUN Creatinine Glucose POC Glucose 125 H 142 H 127 H Lactic Acid Calcium Phosphorus Magnesium Total Creatine Kinase Troponin T Total Protein Albumin Triglycerides LDL Cholesterol Direct HDL Cholesterol Arterial Blood Glucose Arterial Blood Ionized Calcium Urine pH Urine WBC (Auto) Vancomycin Trough Salicylates Acetaminophen Crossmatch 10/31/20 11/01/20 11/01/20 Unknown 03:40 04:21 WBC RBC Hgb Hct MCV MCH MCHC RDW Plt Count Lymph % (Auto) Seg Neutrophils % Seg Neuts % (Manual) Lymphocytes % (Manual) Nucleated RBC % Seg Neutrophils # Seg Neutrophils # Man Lymphocytes # (Manual) Monocytes # (Manual) PT INR ABG pH 7.489 H POC ABG pCO2 POC ABG pO2 ABG pO2 77.2 L ABG HCO3 ABG O2 Saturation ABG Base Excess ABG Hemoglobin 7.1 L ABG Oxyhemoglobin ABG Sodium ABG Potassium ABG Chloride ABG Glucose Oxyhemoglobin Carboxyhemoglobin Sodium Potassium 3.1 L Chloride 107.1 H Carbon Dioxide BUN 25 H Creatinine 0.5 L Glucose 148 H POC Glucose Lactic Acid 4.30 H* Calcium 6.0 L Phosphorus Magnesium Total Creatine Kinase Troponin T Total Protein Albumin Triglycerides LDL Cholesterol Direct HDL Cholesterol Arterial Blood Glucose Arterial Blood Ionized Calcium Urine pH Urine WBC (Auto) Vancomycin Trough Salicylates Acetaminophen Crossmatch 11/01/20 11/01/20 11/01/20 05:13 11:42 17:38 WBC RBC Hgb Hct MCV MCH MCHC RDW Plt Count Lymph % (Auto) Seg Neutrophils % Seg Neuts % (Manual) Lymphocytes % (Manual) Nucleated RBC % Seg Neutrophils # Seg Neutrophils # Man Lymphocytes # (Manual) Monocytes # (Manual) PT INR ABG pH POC ABG pCO2 POC ABG pO2 ABG pO2 ABG HCO3 ABG O2 Saturation ABG Base Excess ABG Hemoglobin ABG Oxyhemoglobin ABG Sodium ABG Potassium ABG Chloride ABG Glucose Oxyhemoglobin Carboxyhemoglobin Sodium Potassium Chloride Carbon Dioxide BUN Creatinine Glucose POC Glucose 139 H 139 H 161 H Lactic Acid Calcium Phosphorus Magnesium Total Creatine Kinase Troponin T Total Protein Albumin Triglycerides LDL Cholesterol Direct HDL Cholesterol Arterial Blood Glucose Arterial Blood Ionized Calcium Urine pH Urine WBC (Auto) Vancomycin Trough Salicylates Acetaminophen Crossmatch 11/01/20 11/01/20 11/02/20 23:20 Unknown 04:30 WBC 18.2 H RBC 3.27 L Hgb 9.9 L Hct 30.1 L D MCV MCH MCHC RDW 15.7 H Plt Count 34 L Lymph % (Auto) Seg Neutrophils % Seg Neuts % (Manual) Lymphocytes % (Manual) Nucleated RBC % Seg Neutrophils # Seg Neutrophils # Man Lymphocytes # (Manual) Monocytes # (Manual) PT INR ABG pH 7.456 H POC ABG pCO2 POC ABG pO2 ABG pO2 ABG HCO3 ABG O2 Saturation ABG Base Excess ABG Hemoglobin 9.2 L ABG Oxyhemoglobin ABG Sodium ABG Potassium ABG Chloride ABG Glucose Oxyhemoglobin Carboxyhemoglobin Sodium Potassium Chloride Carbon Dioxide BUN Creatinine Glucose POC Glucose 168 H Lactic Acid Calcium Phosphorus Magnesium Total Creatine Kinase Troponin T Total Protein Albumin Triglycerides LDL Cholesterol Direct HDL Cholesterol Arterial Blood Glucose Arterial Blood Ionized Calcium Urine pH Urine WBC (Auto) Vancomycin Trough Salicylates Acetaminophen Crossmatch 11/02/20 11/02/20 11/02/20 06:29 08:40 08:40 WBC 16.6 H RBC 2.87 L Hgb 8.8 L Hct 26.6 L MCV MCH MCHC RDW 15.8 H Plt Count 30 L Lymph % (Auto) Seg Neutrophils % Seg Neuts % (Manual) 97.0 H Lymphocytes % (Manual) 2.0 L Nucleated RBC % 1.0 H Seg Neutrophils # Seg Neutrophils # Man 16.1 H Lymphocytes # (Manual) 0.3 L Monocytes # (Manual) PT INR ABG pH POC ABG pCO2 POC ABG pO2 ABG pO2 ABG HCO3 ABG O2 Saturation ABG Base Excess ABG Hemoglobin ABG Oxyhemoglobin ABG Sodium ABG Potassium ABG Chloride ABG Glucose Oxyhemoglobin Carboxyhemoglobin Sodium Potassium 2.4 L* D Chloride 110.2 H Carbon Dioxide BUN 23 H Creatinine 0.4 L Glucose 154 H POC Glucose 131 H Lactic Acid Calcium 6.1 L Phosphorus Magnesium 1.50 L Total Creatine Kinase Troponin T Total Protein Albumin Triglycerides LDL Cholesterol Direct HDL Cholesterol Arterial Blood Glucose Arterial Blood Ionized Calcium Urine pH Urine WBC (Auto) Vancomycin Trough Salicylates Acetaminophen Crossmatch 11/02/20 11/02/20 11/02/20 13:17 17:25 18:05 WBC RBC Hgb Hct MCV MCH MCHC RDW Plt Count Lymph % (Auto) Seg Neutrophils % Seg Neuts % (Manual) Lymphocytes % (Manual) Nucleated RBC % Seg Neutrophils # Seg Neutrophils # Man Lymphocytes # (Manual) Monocytes # (Manual) PT INR ABG pH POC ABG pCO2 POC ABG pO2 ABG pO2 ABG HCO3 ABG O2 Saturation ABG Base Excess ABG Hemoglobin ABG Oxyhemoglobin ABG Sodium ABG Potassium ABG Chloride ABG Glucose Oxyhemoglobin Carboxyhemoglobin Sodium Potassium 3.1 L D Chloride Carbon Dioxide BUN Creatinine Glucose POC Glucose 134 H 140 H Lactic Acid Calcium Phosphorus Magnesium Total Creatine Kinase Troponin T Total Protein Albumin Triglycerides LDL Cholesterol Direct HDL Cholesterol Arterial Blood Glucose Arterial Blood Ionized Calcium Urine pH Urine WBC (Auto) Vancomycin Trough Salicylates Acetaminophen Crossmatch 11/02/20 11/03/20 11/03/20 23:36 04:15 05:07 WBC RBC Hgb Hct MCV MCH MCHC RDW Plt Count Lymph % (Auto) Seg Neutrophils % Seg Neuts % (Manual) Lymphocytes % (Manual) Nucleated RBC % Seg Neutrophils # Seg Neutrophils # Man Lymphocytes # (Manual) Monocytes # (Manual) PT INR ABG pH POC ABG pCO2 POC ABG pO2 ABG pO2 ABG HCO3 ABG O2 Saturation ABG Base Excess ABG Hemoglobin ABG Oxyhemoglobin ABG Sodium ABG Potassium ABG Chloride ABG Glucose Oxyhemoglobin Carboxyhemoglobin Sodium Potassium 3.0 L Chloride 111.8 H Carbon Dioxide BUN 24 H Creatinine 0.3 L Glucose 141 H POC Glucose 127 H 156 H Lactic Acid Calcium 5.8 L* Phosphorus Magnesium 1.60 L Total Creatine Kinase Troponin T Total Protein Albumin Triglycerides LDL Cholesterol Direct HDL Cholesterol Arterial Blood Glucose Arterial Blood Ionized Calcium Urine pH Urine WBC (Auto) Vancomycin Trough Salicylates Acetaminophen Crossmatch 11/03/20 11/03/20 11/04/20 11:14 17:31 00:17 WBC RBC Hgb Hct MCV MCH MCHC RDW Plt Count Lymph % (Auto) Seg Neutrophils % Seg Neuts % (Manual) Lymphocytes % (Manual) Nucleated RBC % Seg Neutrophils # Seg Neutrophils # Man Lymphocytes # (Manual) Monocytes # (Manual) PT INR ABG pH POC ABG pCO2 POC ABG pO2 ABG pO2 ABG HCO3 ABG O2 Saturation ABG Base Excess ABG Hemoglobin ABG Oxyhemoglobin ABG Sodium ABG Potassium ABG Chloride ABG Glucose Oxyhemoglobin Carboxyhemoglobin Sodium Potassium Chloride Carbon Dioxide BUN Creatinine Glucose POC Glucose 137 H 151 H 156 H Lactic Acid Calcium Phosphorus Magnesium Total Creatine Kinase Troponin T Total Protein Albumin Triglycerides LDL Cholesterol Direct HDL Cholesterol Arterial Blood Glucose Arterial Blood Ionized Calcium Urine pH Urine WBC (Auto) Vancomycin Trough Salicylates Acetaminophen Crossmatch 11/04/20 11/04/20 11/04/20 05:34 05:34 11:16 WBC 21.9 H RBC 2.67 L Hgb 8.2 L Hct 24.8 L MCV MCH MCHC RDW 15.6 H Plt Count 48 L Lymph % (Auto) Seg Neutrophils % Seg Neuts % (Manual) Lymphocytes % (Manual) Nucleated RBC % Seg Neutrophils # Seg Neutrophils # Man Lymphocytes # (Manual) Monocytes # (Manual) PT INR ABG pH POC ABG pCO2 POC ABG pO2 ABG pO2 ABG HCO3 ABG O2 Saturation ABG Base Excess ABG Hemoglobin ABG Oxyhemoglobin ABG Sodium ABG Potassium ABG Chloride ABG Glucose Oxyhemoglobin Carboxyhemoglobin Sodium 146 H Potassium Chloride 114.6 H Carbon Dioxide BUN 29 H Creatinine 0.3 L Glucose 173 H POC Glucose 156 H Lactic Acid Calcium 5.7 L* Phosphorus Magnesium Total Creatine Kinase Troponin T Total Protein Albumin Triglycerides LDL Cholesterol Direct HDL Cholesterol Arterial Blood Glucose Arterial Blood Ionized Calcium Urine pH Urine WBC (Auto) Vancomycin Trough Salicylates Acetaminophen Crossmatch 11/04/20 11/04/20 11/04/20 11:42 17:18 23:12 WBC RBC Hgb Hct MCV MCH MCHC RDW Plt Count Lymph % (Auto) Seg Neutrophils % Seg Neuts % (Manual) Lymphocytes % (Manual) Nucleated RBC % Seg Neutrophils # Seg Neutrophils # Man Lymphocytes # (Manual) Monocytes # (Manual) PT INR ABG pH 7.525 H POC ABG pCO2 28.9 L POC ABG pO2 64.3 L ABG pO2 ABG HCO3 ABG O2 Saturation ABG Base Excess ABG Hemoglobin 8.2 L ABG Oxyhemoglobin ABG Sodium ABG Potassium 3.3 L ABG Chloride 115.0 H ABG Glucose 165 H Oxyhemoglobin Carboxyhemoglobin Sodium Potassium Chloride Carbon Dioxide BUN Creatinine Glucose POC Glucose 144 H 155 H Lactic Acid Calcium Phosphorus Magnesium Total Creatine Kinase Troponin T Total Protein Albumin Triglycerides LDL Cholesterol Direct HDL Cholesterol Arterial Blood Glucose 165 H Arterial Blood Ionized Calcium 4.0 L Urine pH Urine WBC (Auto) Vancomycin Trough Salicylates Acetaminophen Crossmatch 11/05/20 11/05/20 11/05/20 04:48 04:48 05:57 WBC 17.4 H RBC 2.49 L Hgb 7.8 L Hct 23.5 L MCV MCH MCHC RDW 16.0 H Plt Count 69 L Lymph % (Auto) Seg Neutrophils % Seg Neuts % (Manual) Lymphocytes % (Manual) Nucleated RBC % Seg Neutrophils # Seg Neutrophils # Man Lymphocytes # (Manual) Monocytes # (Manual) PT INR ABG pH POC ABG pCO2 POC ABG pO2 ABG pO2 ABG HCO3 ABG O2 Saturation ABG Base Excess ABG Hemoglobin ABG Oxyhemoglobin ABG Sodium ABG Potassium ABG Chloride ABG Glucose Oxyhemoglobin Carboxyhemoglobin Sodium 147 H Potassium 3.5 L Chloride 115.4 H Carbon Dioxide BUN 34 H Creatinine 0.3 L Glucose 154 H POC Glucose 146 H Lactic Acid Calcium 6.1 L Phosphorus 2.00 L Magnesium Total Creatine Kinase Troponin T Total Protein Albumin Triglycerides LDL Cholesterol Direct HDL Cholesterol Arterial Blood Glucose Arterial Blood Ionized Calcium Urine pH Urine WBC (Auto) Vancomycin Trough Salicylates Acetaminophen Crossmatch 11/05/20 11/05/20 11/05/20 11:33 17:52 23:37 WBC RBC Hgb Hct MCV MCH MCHC RDW Plt Count Lymph % (Auto) Seg Neutrophils % Seg Neuts % (Manual) Lymphocytes % (Manual) Nucleated RBC % Seg Neutrophils # Seg Neutrophils # Man Lymphocytes # (Manual) Monocytes # (Manual) PT INR ABG pH POC ABG pCO2 POC ABG pO2 ABG pO2 ABG HCO3 ABG O2 Saturation ABG Base Excess ABG Hemoglobin ABG Oxyhemoglobin ABG Sodium ABG Potassium ABG Chloride ABG Glucose Oxyhemoglobin Carboxyhemoglobin Sodium Potassium Chloride Carbon Dioxide BUN Creatinine Glucose POC Glucose 144 H 136 H 151 H Lactic Acid Calcium Phosphorus Magnesium Total Creatine Kinase Troponin T Total Protein Albumin Triglycerides LDL Cholesterol Direct HDL Cholesterol Arterial Blood Glucose Arterial Blood Ionized Calcium Urine pH Urine WBC (Auto) Vancomycin Trough Salicylates Acetaminophen Crossmatch 11/06/20 11/06/20 11/06/20 05:36 06:45 06:45 WBC 15.0 H RBC 2.33 L Hgb 7.2 L Hct 22.1 L MCV 95 H MCH MCHC RDW 16.2 H Plt Count 103 L Lymph % (Auto) Seg Neutrophils % Seg Neuts % (Manual) Lymphocytes % (Manual) Nucleated RBC % Seg Neutrophils # Seg Neutrophils # Man Lymphocytes # (Manual) Monocytes # (Manual) PT INR ABG pH POC ABG pCO2 POC ABG pO2 ABG pO2 ABG HCO3 ABG O2 Saturation ABG Base Excess ABG Hemoglobin ABG Oxyhemoglobin ABG Sodium ABG Potassium ABG Chloride ABG Glucose Oxyhemoglobin Carboxyhemoglobin Sodium 148 H Potassium Chloride 118.2 H Carbon Dioxide BUN 32 H Creatinine 0.4 L Glucose 153 H POC Glucose 140 H Lactic Acid Calcium 6.4 L Phosphorus 0.90 L* D Magnesium Total Creatine Kinase Troponin T Total Protein 5.0 L Albumin 1.4 L Triglycerides LDL Cholesterol Direct HDL Cholesterol Arterial Blood Glucose Arterial Blood Ionized Calcium Urine pH Urine WBC (Auto) Vancomycin Trough Salicylates Acetaminophen Crossmatch 11/06/20 11/06/20 11/06/20 11:32 17:37 23:19 WBC RBC Hgb Hct MCV MCH MCHC RDW Plt Count Lymph % (Auto) Seg Neutrophils % Seg Neuts % (Manual) Lymphocytes % (Manual) Nucleated RBC % Seg Neutrophils # Seg Neutrophils # Man Lymphocytes # (Manual) Monocytes # (Manual) PT INR ABG pH POC ABG pCO2 POC ABG pO2 ABG pO2 ABG HCO3 ABG O2 Saturation ABG Base Excess ABG Hemoglobin ABG Oxyhemoglobin ABG Sodium ABG Potassium ABG Chloride ABG Glucose Oxyhemoglobin Carboxyhemoglobin Sodium Potassium Chloride Carbon Dioxide BUN Creatinine Glucose POC Glucose 132 H 133 H 145 H Lactic Acid Calcium Phosphorus Magnesium Total Creatine Kinase Troponin T Total Protein Albumin Triglycerides LDL Cholesterol Direct HDL Cholesterol Arterial Blood Glucose Arterial Blood Ionized Calcium Urine pH Urine WBC (Auto) Vancomycin Trough Salicylates Acetaminophen Crossmatch 11/07/20 11/07/20 11/07/20 12:55 16:45 16:45 WBC 12.0 H RBC 3.63 L Hgb 11.4 L D Hct MCV 104 H MCH MCHC 30 L RDW 18.0 H Plt Count 133 L Lymph % (Auto) Seg Neutrophils % Seg Neuts % (Manual) Lymphocytes % (Manual) Nucleated RBC % Seg Neutrophils # Seg Neutrophils # Man Lymphocytes # (Manual) Monocytes # (Manual) PT INR ABG pH POC ABG pCO2 POC ABG pO2 ABG pO2 ABG HCO3 ABG O2 Saturation ABG Base Excess ABG Hemoglobin 7.7 L ABG Oxyhemoglobin ABG Sodium ABG Potassium ABG Chloride ABG Glucose Oxyhemoglobin 94.9 L Carboxyhemoglobin Sodium 149 H Potassium Chloride 119.8 H Carbon Dioxide BUN 31 H Creatinine 0.4 L Glucose 130 H POC Glucose Lactic Acid Calcium 6.5 L Phosphorus Magnesium Total Creatine Kinase Troponin T Total Protein Albumin Triglycerides LDL Cholesterol Direct HDL Cholesterol Arterial Blood Glucose Arterial Blood Ionized Calcium Urine pH Urine WBC (Auto) Vancomycin Trough Salicylates Acetaminophen Crossmatch 11/07/20 11/08/20 11/08/20 17:23 00:12 06:11 WBC RBC Hgb Hct MCV MCH MCHC RDW Plt Count Lymph % (Auto) Seg Neutrophils % Seg Neuts % (Manual) Lymphocytes % (Manual) Nucleated RBC % Seg Neutrophils # Seg Neutrophils # Man Lymphocytes # (Manual) Monocytes # (Manual) PT INR ABG pH POC ABG pCO2 POC ABG pO2 ABG pO2 ABG HCO3 ABG O2 Saturation ABG Base Excess ABG Hemoglobin ABG Oxyhemoglobin ABG Sodium ABG Potassium ABG Chloride ABG Glucose Oxyhemoglobin Carboxyhemoglobin Sodium Potassium Chloride Carbon Dioxide BUN Creatinine Glucose POC Glucose 115 H 129 H 109 H Lactic Acid Calcium Phosphorus Magnesium Total Creatine Kinase Troponin T Total Protein Albumin Triglycerides LDL Cholesterol Direct HDL Cholesterol Arterial Blood Glucose Arterial Blood Ionized Calcium Urine pH Urine WBC (Auto) Vancomycin Trough Salicylates Acetaminophen Crossmatch 11/08/20 11/08/20 11/08/20 17:36 23:49 23:58 WBC RBC Hgb Hct MCV MCH MCHC RDW Plt Count Lymph % (Auto) Seg Neutrophils % Seg Neuts % (Manual) Lymphocytes % (Manual) Nucleated RBC % Seg Neutrophils # Seg Neutrophils # Man Lymphocytes # (Manual) Monocytes # (Manual) PT INR ABG pH POC ABG pCO2 POC ABG pO2 ABG pO2 ABG HCO3 ABG O2 Saturation ABG Base Excess ABG Hemoglobin ABG Oxyhemoglobin ABG Sodium ABG Potassium ABG Chloride ABG Glucose Oxyhemoglobin Carboxyhemoglobin Sodium Potassium Chloride Carbon Dioxide BUN Creatinine Glucose 138 H POC Glucose 38 L 36 L Lactic Acid Calcium Phosphorus Magnesium Total Creatine Kinase Troponin T Total Protein Albumin Triglycerides LDL Cholesterol Direct HDL Cholesterol Arterial Blood Glucose Arterial Blood Ionized Calcium Urine pH Urine WBC (Auto) Vancomycin Trough Salicylates Acetaminophen Crossmatch 11/09/20 11/09/20 11/09/20 05:33 06:00 06:00 WBC 13.1 H RBC 2.35 L Hgb 7.6 L D Hct 22.9 L D MCV 97 H MCH MCHC RDW 16.8 H Plt Count Lymph % (Auto) 9.1 L Seg Neutrophils % 84.8 H Seg Neuts % (Manual) Lymphocytes % (Manual) Nucleated RBC % Seg Neutrophils # 11.1 H Seg Neutrophils # Man Lymphocytes # (Manual) Monocytes # (Manual) PT INR ABG pH POC ABG pCO2 POC ABG pO2 ABG pO2 ABG HCO3 ABG O2 Saturation ABG Base Excess ABG Hemoglobin ABG Oxyhemoglobin ABG Sodium ABG Potassium ABG Chloride ABG Glucose Oxyhemoglobin Carboxyhemoglobin Sodium 150 H Potassium 3.4 L D Chloride 119.2 H Carbon Dioxide BUN 30 H Creatinine 0.4 L Glucose 137 H POC Glucose 58 L Lactic Acid Calcium 7.2 L Phosphorus Magnesium Total Creatine Kinase Troponin T Total Protein Albumin Triglycerides LDL Cholesterol Direct HDL Cholesterol Arterial Blood Glucose Arterial Blood Ionized Calcium Urine pH Urine WBC (Auto) Vancomycin Trough Salicylates Acetaminophen Crossmatch 11/09/20 11/09/20 11/10/20 06:08 22:16 13:46 WBC 16.1 H RBC 2.52 L Hgb 8.1 L Hct 25.2 L MCV 100 H MCH MCHC RDW 18.2 H Plt Count Lymph % (Auto) Seg Neutrophils % Seg Neuts % (Manual) 90.0 H Lymphocytes % (Manual) 3.0 L Nucleated RBC % Seg Neutrophils # Seg Neutrophils # Man 14.5 H Lymphocytes # (Manual) 0.5 L Monocytes # (Manual) 1.1 H PT INR ABG pH POC ABG pCO2 POC ABG pO2 ABG pO2 ABG HCO3 ABG O2 Saturation ABG Base Excess ABG Hemoglobin ABG Oxyhemoglobin ABG Sodium ABG Potassium ABG Chloride ABG Glucose Oxyhemoglobin Carboxyhemoglobin Sodium Potassium Chloride Carbon Dioxide BUN Creatinine Glucose POC Glucose 122 H 120 H Lactic Acid Calcium Phosphorus Magnesium Total Creatine Kinase Troponin T Total Protein Albumin Triglycerides LDL Cholesterol Direct HDL Cholesterol Arterial Blood Glucose Arterial Blood Ionized Calcium Urine pH Urine WBC (Auto) Vancomycin Trough Salicylates Acetaminophen Crossmatch 11/10/20 11/10/20 11/11/20 13:46 15:59 11:43 WBC RBC Hgb Hct MCV MCH MCHC RDW Plt Count Lymph % (Auto) Seg Neutrophils % Seg Neuts % (Manual) Lymphocytes % (Manual) Nucleated RBC % Seg Neutrophils # Seg Neutrophils # Man Lymphocytes # (Manual) Monocytes # (Manual) PT INR ABG pH POC ABG pCO2 POC ABG pO2 ABG pO2 ABG HCO3 ABG O2 Saturation ABG Base Excess ABG Hemoglobin ABG Oxyhemoglobin ABG Sodium ABG Potassium ABG Chloride ABG Glucose Oxyhemoglobin Carboxyhemoglobin Sodium 153 H Potassium Chloride 120.6 H Carbon Dioxide BUN 27 H Creatinine 0.3 L Glucose 112 H POC Glucose 40 L 124 H Lactic Acid Calcium 6.8 L Phosphorus Magnesium Total Creatine Kinase Troponin T Total Protein Albumin Triglycerides LDL Cholesterol Direct HDL Cholesterol Arterial Blood Glucose Arterial Blood Ionized Calcium Urine pH Urine WBC (Auto) Vancomycin Trough Salicylates Acetaminophen Crossmatch 11/11/20 11/11/20 11/11/20 14:38 14:38 14:38 WBC 13.8 H RBC 2.43 L Hgb 7.6 L Hct 24.0 L MCV 99 H MCH MCHC RDW 18.0 H Plt Count Lymph % (Auto) Seg Neutrophils % Seg Neuts % (Manual) Lymphocytes % (Manual) Nucleated RBC % Seg Neutrophils # Seg Neutrophils # Man Lymphocytes # (Manual) Monocytes # (Manual) PT 15.0 H INR 1.18 H ABG pH POC ABG pCO2 POC ABG pO2 ABG pO2 ABG HCO3 ABG O2 Saturation ABG Base Excess ABG Hemoglobin ABG Oxyhemoglobin ABG Sodium ABG Potassium ABG Chloride ABG Glucose Oxyhemoglobin Carboxyhemoglobin Sodium 154 H Potassium 3.1 L D Chloride 122.1 H Carbon Dioxide BUN 26 H Creatinine 0.4 L Glucose 140 H POC Glucose Lactic Acid Calcium 7.3 L Phosphorus Magnesium Total Creatine Kinase Troponin T Total Protein Albumin Triglycerides LDL Cholesterol Direct HDL Cholesterol Arterial Blood Glucose Arterial Blood Ionized Calcium Urine pH Urine WBC (Auto) Vancomycin Trough Salicylates Acetaminophen Crossmatch 11/11/20 11/11/20 11/12/20 18:39 18:42 00:03 WBC RBC Hgb Hct MCV MCH MCHC RDW Plt Count Lymph % (Auto) Seg Neutrophils % Seg Neuts % (Manual) Lymphocytes % (Manual) Nucleated RBC % Seg Neutrophils # Seg Neutrophils # Man Lymphocytes # (Manual) Monocytes # (Manual) PT INR ABG pH POC ABG pCO2 POC ABG pO2 ABG pO2 ABG HCO3 ABG O2 Saturation ABG Base Excess ABG Hemoglobin ABG Oxyhemoglobin ABG Sodium ABG Potassium ABG Chloride ABG Glucose Oxyhemoglobin Carboxyhemoglobin Sodium Potassium Chloride Carbon Dioxide BUN Creatinine Glucose POC Glucose 45 L 66 L 108 H Lactic Acid Calcium Phosphorus Magnesium Total Creatine Kinase Troponin T Total Protein Albumin Triglycerides LDL Cholesterol Direct HDL Cholesterol Arterial Blood Glucose Arterial Blood Ionized Calcium Urine pH Urine WBC (Auto) Vancomycin Trough Salicylates Acetaminophen Crossmatch 11/12/20 11/12/20 11/12/20 05:44 08:33 08:33 WBC 13.4 H RBC 2.35 L Hgb 7.5 L Hct 23.7 L MCV 101 H MCH MCHC RDW 19.7 H Plt Count Lymph % (Auto) Seg Neutrophils % Seg Neuts % (Manual) Lymphocytes % (Manual) Nucleated RBC % Seg Neutrophils # Seg Neutrophils # Man Lymphocytes # (Manual) Monocytes # (Manual) PT INR ABG pH POC ABG pCO2 POC ABG pO2 ABG pO2 ABG HCO3 ABG O2 Saturation ABG Base Excess ABG Hemoglobin ABG Oxyhemoglobin ABG Sodium ABG Potassium ABG Chloride ABG Glucose Oxyhemoglobin Carboxyhemoglobin Sodium 154 H Potassium 2.9 L* Chloride 121.4 H Carbon Dioxide BUN 26 H Creatinine 0.4 L Glucose 153 H POC Glucose 114 H Lactic Acid Calcium 7.3 L Phosphorus Magnesium Total Creatine Kinase Troponin T Total Protein Albumin Triglycerides LDL Cholesterol Direct HDL Cholesterol Arterial Blood Glucose Arterial Blood Ionized Calcium Urine pH Urine WBC (Auto) Vancomycin Trough Salicylates Acetaminophen Crossmatch 11/12/20 11/12/20 11/13/20 11:38 17:17 05:28 WBC RBC Hgb Hct MCV MCH MCHC RDW Plt Count Lymph % (Auto) Seg Neutrophils % Seg Neuts % (Manual) Lymphocytes % (Manual) Nucleated RBC % Seg Neutrophils # Seg Neutrophils # Man Lymphocytes # (Manual) Monocytes # (Manual) PT INR ABG pH POC ABG pCO2 51.4 H POC ABG pO2 41.7 L ABG pO2 ABG HCO3 ABG O2 Saturation ABG Base Excess ABG Hemoglobin 9.1 L ABG Oxyhemoglobin 72.2 L ABG Sodium 151.1 H ABG Potassium 3.2 L ABG Chloride 122.0 H ABG Glucose 191 H Oxyhemoglobin Carboxyhemoglobin Sodium Potassium Chloride Carbon Dioxide BUN Creatinine Glucose POC Glucose 125 H 127 H Lactic Acid Calcium Phosphorus Magnesium Total Creatine Kinase Troponin T Total Protein Albumin Triglycerides LDL Cholesterol Direct HDL Cholesterol Arterial Blood Glucose 191 H Arterial Blood Ionized Calcium Urine pH Urine WBC (Auto) Vancomycin Trough Salicylates Acetaminophen Crossmatch 11/13/20 11/13/20 11/13/20 10:46 23:15 23:15 WBC 12.2 H RBC 2.41 L Hgb 7.7 L Hct 24.5 L MCV 102 H MCH MCHC RDW 23.0 H Plt Count Lymph % (Auto) Seg Neutrophils % Seg Neuts % (Manual) Lymphocytes % (Manual) Nucleated RBC % Seg Neutrophils # Seg Neutrophils # Man Lymphocytes # (Manual) Monocytes # (Manual) PT INR ABG pH POC ABG pCO2 POC ABG pO2 ABG pO2 ABG HCO3 ABG O2 Saturation ABG Base Excess ABG Hemoglobin ABG Oxyhemoglobin ABG Sodium ABG Potassium ABG Chloride ABG Glucose Oxyhemoglobin Carboxyhemoglobin Sodium Potassium Chloride Carbon Dioxide BUN Creatinine Glucose POC Glucose 153 H Lactic Acid Calcium Phosphorus Magnesium Total Creatine Kinase Troponin T 0.123 H* Total Protein Albumin Triglycerides LDL Cholesterol Direct HDL Cholesterol Arterial Blood Glucose Arterial Blood Ionized Calcium Urine pH Urine WBC (Auto) Vancomycin Trough Salicylates Acetaminophen Crossmatch 11/13/20 11/13/20 11/14/20 23:15 Unknown 05:26 WBC RBC Hgb Hct MCV MCH MCHC RDW Plt Count Lymph % (Auto) Seg Neutrophils % Seg Neuts % (Manual) Lymphocytes % (Manual) Nucleated RBC % Seg Neutrophils # Seg Neutrophils # Man Lymphocytes # (Manual) Monocytes # (Manual) PT INR ABG pH 7.295 L POC ABG pCO2 56.0 H POC ABG pO2 49.1 L ABG pO2 ABG HCO3 ABG O2 Saturation ABG Base Excess ABG Hemoglobin 8.3 L ABG Oxyhemoglobin 77.1 L ABG Sodium 150.5 H ABG Potassium 3.3 L ABG Chloride 121.0 H ABG Glucose 187 H Oxyhemoglobin Carboxyhemoglobin Sodium 152 H Potassium 3.3 L Chloride 117.8 H Carbon Dioxide BUN 25 H Creatinine 0.4 L Glucose 123 H POC Glucose 46 L Lactic Acid Calcium 7.5 L Phosphorus Magnesium Total Creatine Kinase Troponin T Total Protein Albumin Triglycerides LDL Cholesterol Direct HDL Cholesterol Arterial Blood Glucose 187 H Arterial Blood Ionized Calcium Urine pH Urine WBC (Auto) Vancomycin Trough Salicylates Acetaminophen Crossmatch 11/14/20 11/14/20 11/14/20 06:26 22:26 22:26 WBC RBC 2.75 L Hgb 9.0 L Hct 27.8 L MCV 101 H MCH 33 H MCHC RDW 22.8 H Plt Count Lymph % (Auto) Seg Neutrophils % Seg Neuts % (Manual) Lymphocytes % (Manual) Nucleated RBC % Seg Neutrophils # Seg Neutrophils # Man Lymphocytes # (Manual) Monocytes # (Manual) PT INR ABG pH POC ABG pCO2 POC ABG pO2 ABG pO2 ABG HCO3 ABG O2 Saturation ABG Base Excess ABG Hemoglobin ABG Oxyhemoglobin ABG Sodium ABG Potassium ABG Chloride ABG Glucose Oxyhemoglobin Carboxyhemoglobin Sodium 147 H Potassium 3.3 L Chloride 114.3 H Carbon Dioxide BUN 23 H Creatinine 0.3 L Glucose 209 H POC Glucose 135 H Lactic Acid Calcium 7.4 L Phosphorus Magnesium Total Creatine Kinase Troponin T Total Protein Albumin Triglycerides LDL Cholesterol Direct HDL Cholesterol Arterial Blood Glucose Arterial Blood Ionized Calcium Urine pH Urine WBC (Auto) Vancomycin Trough Salicylates Acetaminophen Crossmatch 11/14/20 11/15/20 11/15/20 23:22 04:28 05:57 WBC RBC Hgb Hct MCV MCH MCHC RDW Plt Count Lymph % (Auto) Seg Neutrophils % Seg Neuts % (Manual) Lymphocytes % (Manual) Nucleated RBC % Seg Neutrophils # Seg Neutrophils # Man Lymphocytes # (Manual) Monocytes # (Manual) PT INR ABG pH POC ABG pCO2 POC ABG pO2 ABG pO2 ABG HCO3 ABG O2 Saturation ABG Base Excess ABG Hemoglobin ABG Oxyhemoglobin ABG Sodium ABG Potassium ABG Chloride ABG Glucose Oxyhemoglobin Carboxyhemoglobin Sodium 152 H Potassium Chloride 118.1 H Carbon Dioxide BUN 22 H Creatinine 0.3 L Glucose 190 H POC Glucose 136 H 151 H Lactic Acid Calcium 7.5 L Phosphorus Magnesium Total Creatine Kinase Troponin T Total Protein Albumin Triglycerides LDL Cholesterol Direct HDL Cholesterol Arterial Blood Glucose Arterial Blood Ionized Calcium Urine pH Urine WBC (Auto) Vancomycin Trough Salicylates Acetaminophen Crossmatch 11/15/20 11/15/20 11/15/20 11:40 16:56 21:53 WBC RBC Hgb Hct MCV MCH MCHC RDW Plt Count Lymph % (Auto) Seg Neutrophils % Seg Neuts % (Manual) Lymphocytes % (Manual) Nucleated RBC % Seg Neutrophils # Seg Neutrophils # Man Lymphocytes # (Manual) Monocytes # (Manual) PT INR ABG pH 7.457 H POC ABG pCO2 POC ABG pO2 ABG pO2 48.3 L ABG HCO3 26.1 H ABG O2 Saturation 82.9 L ABG Base Excess ABG Hemoglobin 9.7 L ABG Oxyhemoglobin ABG Sodium ABG Potassium ABG Chloride ABG Glucose Oxyhemoglobin 81.0 L Carboxyhemoglobin Sodium Potassium Chloride Carbon Dioxide BUN Creatinine Glucose POC Glucose 129 H 115 H Lactic Acid Calcium Phosphorus Magnesium Total Creatine Kinase Troponin T Total Protein Albumin Triglycerides LDL Cholesterol Direct HDL Cholesterol Arterial Blood Glucose Arterial Blood Ionized Calcium Urine pH Urine WBC (Auto) Vancomycin Trough Salicylates Acetaminophen Crossmatch 11/15/20 11/16/20 11/16/20 23:12 00:07 00:09 WBC RBC Hgb Hct MCV MCH MCHC RDW Plt Count Lymph % (Auto) Seg Neutrophils % Seg Neuts % (Manual) Lymphocytes % (Manual) Nucleated RBC % Seg Neutrophils # Seg Neutrophils # Man Lymphocytes # (Manual) Monocytes # (Manual) PT INR ABG pH POC ABG pCO2 POC ABG pO2 ABG pO2 95.1 H ABG HCO3 26.6 H ABG O2 Saturation ABG Base Excess ABG Hemoglobin 7.5 L ABG Oxyhemoglobin ABG Sodium ABG Potassium ABG Chloride ABG Glucose Oxyhemoglobin Carboxyhemoglobin Sodium Potassium Chloride Carbon Dioxide BUN Creatinine Glucose POC Glucose 13 L 153 H Lactic Acid Calcium Phosphorus Magnesium Total Creatine Kinase Troponin T Total Protein Albumin Triglycerides LDL Cholesterol Direct HDL Cholesterol Arterial Blood Glucose Arterial Blood Ionized Calcium Urine pH Urine WBC (Auto) Vancomycin Trough Salicylates Acetaminophen Crossmatch 11/16/20 11/16/20 11/16/20 03:43 04:00 04:00 WBC RBC 2.33 L Hgb 7.7 L Hct 24.5 L MCV 105 H MCH 33 H MCHC 31 L RDW 22.9 H Plt Count Lymph % (Auto) Seg Neutrophils % Seg Neuts % (Manual) Lymphocytes % (Manual) Nucleated RBC % Seg Neutrophils # Seg Neutrophils # Man Lymphocytes # (Manual) Monocytes # (Manual) PT INR ABG pH 7.348 L POC ABG pCO2 POC ABG pO2 ABG pO2 91.6 H ABG HCO3 26.3 H ABG O2 Saturation ABG Base Excess ABG Hemoglobin 7.3 L ABG Oxyhemoglobin ABG Sodium ABG Potassium ABG Chloride ABG Glucose Oxyhemoglobin Carboxyhemoglobin Sodium 148 H Potassium 3.5 L Chloride 115.9 H Carbon Dioxide BUN Creatinine 0.4 L Glucose 195 H POC Glucose Lactic Acid Calcium 7.6 L Phosphorus Magnesium Total Creatine Kinase Troponin T Total Protein Albumin Triglycerides LDL Cholesterol Direct HDL Cholesterol Arterial Blood Glucose Arterial Blood Ionized Calcium Urine pH Urine WBC (Auto) Vancomycin Trough Salicylates Acetaminophen Crossmatch 11/16/20 11/16/20 11/16/20 05:16 07:40 12:10 WBC RBC Hgb Hct MCV MCH MCHC RDW Plt Count Lymph % (Auto) Seg Neutrophils % Seg Neuts % (Manual) Lymphocytes % (Manual) Nucleated RBC % Seg Neutrophils # Seg Neutrophils # Man Lymphocytes # (Manual) Monocytes # (Manual) PT INR ABG pH POC ABG pCO2 POC ABG pO2 ABG pO2 ABG HCO3 ABG O2 Saturation ABG Base Excess ABG Hemoglobin ABG Oxyhemoglobin ABG Sodium ABG Potassium ABG Chloride ABG Glucose Oxyhemoglobin Carboxyhemoglobin Sodium Potassium Chloride Carbon Dioxide BUN Creatinine Glucose POC Glucose 61 L 122 H 140 H Lactic Acid Calcium Phosphorus Magnesium Total Creatine Kinase Troponin T Total Protein Albumin Triglycerides LDL Cholesterol Direct HDL Cholesterol Arterial Blood Glucose Arterial Blood Ionized Calcium Urine pH Urine WBC (Auto) Vancomycin Trough Salicylates Acetaminophen Crossmatch 11/16/20 11/16/20 11/17/20 17:14 23:40 04:30 WBC RBC Hgb Hct MCV MCH MCHC RDW Plt Count Lymph % (Auto) Seg Neutrophils % Seg Neuts % (Manual) Lymphocytes % (Manual) Nucleated RBC % Seg Neutrophils # Seg Neutrophils # Man Lymphocytes # (Manual) Monocytes # (Manual) PT INR ABG pH 7.470 H POC ABG pCO2 POC ABG pO2 75.4 L ABG pO2 ABG HCO3 ABG O2 Saturation ABG Base Excess ABG Hemoglobin 7 L ABG Oxyhemoglobin ABG Sodium ABG Potassium ABG Chloride 116.0 H ABG Glucose 161 H Oxyhemoglobin Carboxyhemoglobin Sodium Potassium Chloride Carbon Dioxide BUN Creatinine Glucose POC Glucose 139 H 151 H Lactic Acid Calcium Phosphorus Magnesium Total Creatine Kinase Troponin T Total Protein Albumin Triglycerides LDL Cholesterol Direct HDL Cholesterol Arterial Blood Glucose 161 H Arterial Blood Ionized Calcium Urine pH Urine WBC (Auto) Vancomycin Trough Salicylates Acetaminophen Crossmatch 11/17/20 11/17/20 11/17/20 09:50 09:50 11:10 WBC RBC 2.02 L Hgb 6.6 L Hct 20.2 L MCV 100 H MCH 33 H MCHC RDW 22.4 H Plt Count Lymph % (Auto) Seg Neutrophils % Seg Neuts % (Manual) Lymphocytes % (Manual) Nucleated RBC % Seg Neutrophils # Seg Neutrophils # Man Lymphocytes # (Manual) Monocytes # (Manual) PT INR ABG pH POC ABG pCO2 POC ABG pO2 ABG pO2 ABG HCO3 ABG O2 Saturation ABG Base Excess ABG Hemoglobin ABG Oxyhemoglobin ABG Sodium ABG Potassium ABG Chloride ABG Glucose Oxyhemoglobin Carboxyhemoglobin Sodium Potassium Chloride 111.8 H Carbon Dioxide BUN 23 H Creatinine 0.4 L Glucose 142 H POC Glucose Lactic Acid Calcium 7.3 L Phosphorus Magnesium Total Creatine Kinase Troponin T Total Protein Albumin Triglycerides LDL Cholesterol Direct HDL Cholesterol Arterial Blood Glucose Arterial Blood Ionized Calcium Urine pH Urine WBC (Auto) Vancomycin Trough Salicylates Acetaminophen Crossmatch See Detail 11/17/20 11/17/20 11/17/20 11:52 11:57 23:22 WBC RBC Hgb Hct MCV MCH MCHC RDW Plt Count Lymph % (Auto) Seg Neutrophils % Seg Neuts % (Manual) Lymphocytes % (Manual) Nucleated RBC % Seg Neutrophils # Seg Neutrophils # Man Lymphocytes # (Manual) Monocytes # (Manual) PT INR ABG pH POC ABG pCO2 POC ABG pO2 ABG pO2 ABG HCO3 ABG O2 Saturation ABG Base Excess ABG Hemoglobin ABG Oxyhemoglobin ABG Sodium ABG Potassium ABG Chloride ABG Glucose Oxyhemoglobin Carboxyhemoglobin Sodium Potassium Chloride Carbon Dioxide BUN Creatinine Glucose POC Glucose 42 L 114 H 63 L Lactic Acid Calcium Phosphorus Magnesium Total Creatine Kinase Troponin T Total Protein Albumin Triglycerides LDL Cholesterol Direct HDL Cholesterol Arterial Blood Glucose Arterial Blood Ionized Calcium Urine pH Urine WBC (Auto) Vancomycin Trough Salicylates Acetaminophen Crossmatch 11/17/20 11/18/20 11/18/20 23:27 04:06 04:45 WBC RBC 2.36 L Hgb 7.4 L Hct 23.4 L MCV 99 H MCH MCHC RDW 21.6 H Plt Count Lymph % (Auto) Seg Neutrophils % Seg Neuts % (Manual) Lymphocytes % (Manual) Nucleated RBC % Seg Neutrophils # Seg Neutrophils # Man Lymphocytes # (Manual) Monocytes # (Manual) PT INR ABG pH POC ABG pCO2 POC ABG pO2 67.7 L ABG pO2 ABG HCO3 ABG O2 Saturation ABG Base Excess ABG Hemoglobin 8.3 L ABG Oxyhemoglobin ABG Sodium ABG Potassium ABG Chloride 112.0 H ABG Glucose 143 H Oxyhemoglobin Carboxyhemoglobin Sodium Potassium Chloride Carbon Dioxide BUN Creatinine Glucose POC Glucose 124 H Lactic Acid Calcium Phosphorus Magnesium Total Creatine Kinase Troponin T Total Protein Albumin Triglycerides LDL Cholesterol Direct HDL Cholesterol Arterial Blood Glucose 143 H Arterial Blood Ionized Calcium 4.5 L Urine pH Urine WBC (Auto) Vancomycin Trough Salicylates Acetaminophen Crossmatch 11/18/20 11/18/20 11/18/20 04:45 05:56 23:46 WBC RBC Hgb Hct MCV MCH MCHC RDW Plt Count Lymph % (Auto) Seg Neutrophils % Seg Neuts % (Manual) Lymphocytes % (Manual) Nucleated RBC % Seg Neutrophils # Seg Neutrophils # Man Lymphocytes # (Manual) Monocytes # (Manual) PT INR ABG pH POC ABG pCO2 POC ABG pO2 ABG pO2 ABG HCO3 ABG O2 Saturation ABG Base Excess ABG Hemoglobin ABG Oxyhemoglobin ABG Sodium ABG Potassium ABG Chloride ABG Glucose Oxyhemoglobin Carboxyhemoglobin Sodium Potassium Chloride 107.9 H Carbon Dioxide BUN 23 H Creatinine 0.4 L Glucose 139 H POC Glucose 133 H 66 L Lactic Acid Calcium 7.6 L Phosphorus Magnesium Total Creatine Kinase Troponin T Total Protein Albumin Triglycerides LDL Cholesterol Direct HDL Cholesterol Arterial Blood Glucose Arterial Blood Ionized Calcium Urine pH Urine WBC (Auto) Vancomycin Trough Salicylates Acetaminophen Crossmatch 11/18/20 11/19/20 11/19/20 23:52 05:48 06:36 WBC RBC Hgb Hct MCV MCH MCHC RDW Plt Count Lymph % (Auto) Seg Neutrophils % Seg Neuts % (Manual) Lymphocytes % (Manual) Nucleated RBC % Seg Neutrophils # Seg Neutrophils # Man Lymphocytes # (Manual) Monocytes # (Manual) PT INR ABG pH POC ABG pCO2 POC ABG pO2 ABG pO2 ABG HCO3 ABG O2 Saturation ABG Base Excess ABG Hemoglobin ABG Oxyhemoglobin ABG Sodium ABG Potassium ABG Chloride ABG Glucose Oxyhemoglobin Carboxyhemoglobin Sodium Potassium Chloride Carbon Dioxide BUN 21 H Creatinine 0.4 L Glucose 119 H POC Glucose 118 H 108 H Lactic Acid Calcium 7.8 L Phosphorus Magnesium Total Creatine Kinase Troponin T Total Protein Albumin Triglycerides LDL Cholesterol Direct HDL Cholesterol Arterial Blood Glucose Arterial Blood Ionized Calcium Urine pH Urine WBC (Auto) Vancomycin Trough Salicylates Acetaminophen Crossmatch 11/19/20 11/19/20 11/19/20 06:36 06:36 18:15 WBC RBC 2.79 L Hgb 9.0 L Hct 27.8 L MCV 100 H MCH MCHC RDW 20.7 H Plt Count Lymph % (Auto) Seg Neutrophils % Seg Neuts % (Manual) Lymphocytes % (Manual) Nucleated RBC % Seg Neutrophils # Seg Neutrophils # Man Lymphocytes # (Manual) Monocytes # (Manual) PT INR 1.15 H ABG pH POC ABG pCO2 POC ABG pO2 ABG pO2 ABG HCO3 ABG O2 Saturation ABG Base Excess ABG Hemoglobin ABG Oxyhemoglobin ABG Sodium ABG Potassium ABG Chloride ABG Glucose Oxyhemoglobin Carboxyhemoglobin Sodium Potassium Chloride Carbon Dioxide BUN Creatinine Glucose POC Glucose 115 H Lactic Acid Calcium Phosphorus Magnesium Total Creatine Kinase Troponin T Total Protein Albumin Triglycerides LDL Cholesterol Direct HDL Cholesterol Arterial Blood Glucose Arterial Blood Ionized Calcium Urine pH Urine WBC (Auto) Vancomycin Trough Salicylates Acetaminophen Crossmatch 11/19/20 11/19/20 11/20/20 23:27 Unknown 04:56 WBC RBC Hgb Hct MCV MCH MCHC RDW Plt Count Lymph % (Auto) Seg Neutrophils % Seg Neuts % (Manual) Lymphocytes % (Manual) Nucleated RBC % Seg Neutrophils # Seg Neutrophils # Man Lymphocytes # (Manual) Monocytes # (Manual) PT INR ABG pH 7.457 H POC ABG pCO2 POC ABG pO2 57.4 L ABG pO2 72.4 L ABG HCO3 26.9 H ABG O2 Saturation ABG Base Excess ABG Hemoglobin 8.5 L 9.6 L ABG Oxyhemoglobin 90.1 L ABG Sodium ABG Potassium ABG Chloride 109.0 H ABG Glucose 142 H Oxyhemoglobin 94.1 L Carboxyhemoglobin Sodium Potassium Chloride Carbon Dioxide BUN Creatinine Glucose POC Glucose 129 H Lactic Acid Calcium Phosphorus Magnesium Total Creatine Kinase Troponin T Total Protein Albumin Triglycerides LDL Cholesterol Direct HDL Cholesterol Arterial Blood Glucose 142 H Arterial Blood Ionized Calcium Urine pH Urine WBC (Auto) Vancomycin Trough Salicylates Acetaminophen Crossmatch 11/20/20 11/20/20 11/20/20 05:07 05:45 05:45 WBC 11.7 H RBC 2.74 L Hgb 8.9 L Hct 26.3 L MCV 96 H MCH 33 H MCHC RDW 18.6 H Plt Count Lymph % (Auto) Seg Neutrophils % Seg Neuts % (Manual) Lymphocytes % (Manual) Nucleated RBC % Seg Neutrophils # Seg Neutrophils # Man Lymphocytes # (Manual) Monocytes # (Manual) PT INR ABG pH POC ABG pCO2 POC ABG pO2 ABG pO2 ABG HCO3 ABG O2 Saturation ABG Base Excess ABG Hemoglobin ABG Oxyhemoglobin ABG Sodium ABG Potassium ABG Chloride ABG Glucose Oxyhemoglobin Carboxyhemoglobin Sodium Potassium Chloride Carbon Dioxide 31 H BUN Creatinine 0.4 L Glucose 127 H POC Glucose 129 H Lactic Acid Calcium 8.0 L Phosphorus Magnesium Total Creatine Kinase Troponin T Total Protein Albumin Triglycerides LDL Cholesterol Direct HDL Cholesterol Arterial Blood Glucose Arterial Blood Ionized Calcium Urine pH Urine WBC (Auto) Vancomycin Trough Salicylates Acetaminophen Crossmatch 11/20/20 11/20/20 11/21/20 12:02 17:52 00:02 WBC RBC Hgb Hct MCV MCH MCHC RDW Plt Count Lymph % (Auto) Seg Neutrophils % Seg Neuts % (Manual) Lymphocytes % (Manual) Nucleated RBC % Seg Neutrophils # Seg Neutrophils # Man Lymphocytes # (Manual) Monocytes # (Manual) PT INR ABG pH POC ABG pCO2 POC ABG pO2 ABG pO2 ABG HCO3 ABG O2 Saturation ABG Base Excess ABG Hemoglobin ABG Oxyhemoglobin ABG Sodium ABG Potassium ABG Chloride ABG Glucose Oxyhemoglobin Carboxyhemoglobin Sodium Potassium Chloride Carbon Dioxide BUN Creatinine Glucose POC Glucose 134 H 115 H 116 H Lactic Acid Calcium Phosphorus Magnesium Total Creatine Kinase Troponin T Total Protein Albumin Triglycerides LDL Cholesterol Direct HDL Cholesterol Arterial Blood Glucose Arterial Blood Ionized Calcium Urine pH Urine WBC (Auto) Vancomycin Trough Salicylates Acetaminophen Crossmatch 11/21/20 11/21/20 11/21/20 03:23 04:00 05:14 WBC RBC Hgb Hct MCV MCH MCHC RDW Plt Count Lymph % (Auto) Seg Neutrophils % Seg Neuts % (Manual) Lymphocytes % (Manual) Nucleated RBC % Seg Neutrophils # Seg Neutrophils # Man Lymphocytes # (Manual) Monocytes # (Manual) PT INR ABG pH 7.479 H POC ABG pCO2 POC ABG pO2 73.7 L ABG pO2 ABG HCO3 ABG O2 Saturation ABG Base Excess ABG Hemoglobin 9.4 L ABG Oxyhemoglobin ABG Sodium ABG Potassium ABG Chloride 108.0 H ABG Glucose 135 H Oxyhemoglobin Carboxyhemoglobin Sodium Potassium Chloride Carbon Dioxide 34 H BUN Creatinine 0.4 L Glucose 125 H POC Glucose 116 H Lactic Acid Calcium 7.9 L Phosphorus Magnesium Total Creatine Kinase Troponin T Total Protein Albumin Triglycerides LDL Cholesterol Direct HDL Cholesterol Arterial Blood Glucose 135 H Arterial Blood Ionized Calcium 4.5 L Urine pH Urine WBC (Auto) Vancomycin Trough Salicylates Acetaminophen Crossmatch 11/22/20 11/22/20 11/22/20 04:00 04:00 05:34 WBC 12.2 H RBC 2.74 L Hgb 8.7 L Hct 27.4 L MCV 100 H MCH MCHC RDW 19.2 H Plt Count Lymph % (Auto) Seg Neutrophils % Seg Neuts % (Manual) Lymphocytes % (Manual) Nucleated RBC % Seg Neutrophils # Seg Neutrophils # Man Lymphocytes # (Manual) Monocytes # (Manual) PT INR ABG pH POC ABG pCO2 POC ABG pO2 ABG pO2 ABG HCO3 ABG O2 Saturation ABG Base Excess ABG Hemoglobin ABG Oxyhemoglobin ABG Sodium ABG Potassium ABG Chloride ABG Glucose Oxyhemoglobin Carboxyhemoglobin Sodium Potassium Chloride Carbon Dioxide BUN Creatinine 0.4 L Glucose POC Glucose 58 L Lactic Acid Calcium 7.7 L Phosphorus Magnesium Total Creatine Kinase Troponin T Total Protein Albumin Triglycerides LDL Cholesterol Direct HDL Cholesterol Arterial Blood Glucose Arterial Blood Ionized Calcium Urine pH Urine WBC (Auto) Vancomycin Trough Salicylates Acetaminophen Crossmatch 11/22/20 11/23/20 11/23/20 11:48 00:15 04:25 WBC RBC Hgb Hct MCV MCH MCHC RDW Plt Count Lymph % (Auto) Seg Neutrophils % Seg Neuts % (Manual) Lymphocytes % (Manual) Nucleated RBC % Seg Neutrophils # Seg Neutrophils # Man Lymphocytes # (Manual) Monocytes # (Manual) PT INR ABG pH 7.489 H POC ABG pCO2 POC ABG pO2 74.7 L ABG pO2 ABG HCO3 ABG O2 Saturation ABG Base Excess ABG Hemoglobin 9.6 L ABG Oxyhemoglobin ABG Sodium 135.6 L ABG Potassium ABG Chloride ABG Glucose 119 H Oxyhemoglobin Carboxyhemoglobin Sodium Potassium Chloride Carbon Dioxide BUN Creatinine Glucose POC Glucose 60 L 106 H Lactic Acid Calcium Phosphorus Magnesium Total Creatine Kinase Troponin T Total Protein Albumin Triglycerides LDL Cholesterol Direct HDL Cholesterol Arterial Blood Glucose 119 H Arterial Blood Ionized Calcium 4.4 L Urine pH Urine WBC (Auto) Vancomycin Trough Salicylates Acetaminophen Crossmatch 11/23/20 11/23/20 11/23/20 05:27 10:23 10:23 WBC 11.3 H RBC 2.58 L Hgb 8.4 L Hct 24.7 L MCV 96 H MCH MCHC RDW 18.2 H Plt Count Lymph % (Auto) Seg Neutrophils % Seg Neuts % (Manual) 94.0 H Lymphocytes % (Manual) 5.0 L Nucleated RBC % Seg Neutrophils # Seg Neutrophils # Man 10.6 H Lymphocytes # (Manual) 0.6 L Monocytes # (Manual) PT INR ABG pH POC ABG pCO2 POC ABG pO2 ABG pO2 ABG HCO3 ABG O2 Saturation ABG Base Excess ABG Hemoglobin ABG Oxyhemoglobin ABG Sodium ABG Potassium ABG Chloride ABG Glucose Oxyhemoglobin Carboxyhemoglobin Sodium Potassium Chloride Carbon Dioxide BUN Creatinine 0.4 L Glucose 101 H POC Glucose 121 H Lactic Acid Calcium 7.2 L Phosphorus Magnesium Total Creatine Kinase Troponin T Total Protein Albumin Triglycerides LDL Cholesterol Direct HDL Cholesterol Arterial Blood Glucose Arterial Blood Ionized Calcium Urine pH Urine WBC (Auto) Vancomycin Trough Salicylates Acetaminophen Crossmatch 11/23/20 11/23/20 11/24/20 11:53 23:19 05:31 WBC RBC Hgb Hct MCV MCH MCHC RDW Plt Count Lymph % (Auto) Seg Neutrophils % Seg Neuts % (Manual) Lymphocytes % (Manual) Nucleated RBC % Seg Neutrophils # Seg Neutrophils # Man Lymphocytes # (Manual) Monocytes # (Manual) PT INR ABG pH POC ABG pCO2 POC ABG pO2 ABG pO2 ABG HCO3 ABG O2 Saturation ABG Base Excess ABG Hemoglobin ABG Oxyhemoglobin ABG Sodium ABG Potassium ABG Chloride ABG Glucose Oxyhemoglobin Carboxyhemoglobin Sodium Potassium Chloride Carbon Dioxide BUN Creatinine Glucose POC Glucose 112 H 120 H 132 H Lactic Acid Calcium Phosphorus Magnesium Total Creatine Kinase Troponin T Total Protein Albumin Triglycerides LDL Cholesterol Direct HDL Cholesterol Arterial Blood Glucose Arterial Blood Ionized Calcium Urine pH Urine WBC (Auto) Vancomycin Trough Salicylates Acetaminophen Crossmatch 11/24/20 11/24/20 11/24/20 11:27 16:48 23:11 WBC RBC Hgb Hct MCV MCH MCHC RDW Plt Count Lymph % (Auto) Seg Neutrophils % Seg Neuts % (Manual) Lymphocytes % (Manual) Nucleated RBC % Seg Neutrophils # Seg Neutrophils # Man Lymphocytes # (Manual) Monocytes # (Manual) PT INR ABG pH POC ABG pCO2 POC ABG pO2 ABG pO2 ABG HCO3 ABG O2 Saturation ABG Base Excess ABG Hemoglobin ABG Oxyhemoglobin ABG Sodium ABG Potassium ABG Chloride ABG Glucose Oxyhemoglobin Carboxyhemoglobin Sodium Potassium Chloride Carbon Dioxide BUN Creatinine Glucose POC Glucose 137 H 128 H 114 H Lactic Acid Calcium Phosphorus Magnesium Total Creatine Kinase Troponin T Total Protein Albumin Triglycerides LDL Cholesterol Direct HDL Cholesterol Arterial Blood Glucose Arterial Blood Ionized Calcium Urine pH Urine WBC (Auto) Vancomycin Trough Salicylates Acetaminophen Crossmatch 11/25/20 11/25/20 11/25/20 05:06 11:20 11:31 WBC 19.0 H RBC 2.28 L Hgb 7.3 L Hct 22.5 L MCV 99 H MCH MCHC RDW 18.3 H Plt Count Lymph % (Auto) Seg Neutrophils % Seg Neuts % (Manual) Lymphocytes % (Manual) Nucleated RBC % Seg Neutrophils # Seg Neutrophils # Man Lymphocytes # (Manual) Monocytes # (Manual) PT INR ABG pH POC ABG pCO2 POC ABG pO2 ABG pO2 ABG HCO3 ABG O2 Saturation ABG Base Excess ABG Hemoglobin ABG Oxyhemoglobin ABG Sodium ABG Potassium ABG Chloride ABG Glucose Oxyhemoglobin Carboxyhemoglobin Sodium Potassium Chloride Carbon Dioxide BUN Creatinine Glucose POC Glucose 125 H 106 H Lactic Acid Calcium Phosphorus Magnesium Total Creatine Kinase Troponin T Total Protein Albumin Triglycerides LDL Cholesterol Direct HDL Cholesterol Arterial Blood Glucose Arterial Blood Ionized Calcium Urine pH Urine WBC (Auto) Vancomycin Trough Salicylates Acetaminophen Crossmatch 11/25/20 11/26/20 11/26/20 16:25 09:25 12:01 WBC 20.8 H RBC 2.82 L Hgb 8.7 L Hct 27.3 L MCV 97 H MCH MCHC RDW 17.9 H Plt Count Lymph % (Auto) Seg Neutrophils % Seg Neuts % (Manual) Lymphocytes % (Manual) Nucleated RBC % Seg Neutrophils # Seg Neutrophils # Man Lymphocytes # (Manual) Monocytes # (Manual) PT INR ABG pH 7.480 H POC ABG pCO2 POC ABG pO2 78.1 L ABG pO2 ABG HCO3 ABG O2 Saturation ABG Base Excess ABG Hemoglobin 8.5 L ABG Oxyhemoglobin ABG Sodium ABG Potassium ABG Chloride ABG Glucose 114 H Oxyhemoglobin Carboxyhemoglobin Sodium Potassium Chloride Carbon Dioxide BUN Creatinine Glucose POC Glucose 130 H Lactic Acid Calcium Phosphorus Magnesium Total Creatine Kinase Troponin T Total Protein Albumin Triglycerides LDL Cholesterol Direct HDL Cholesterol Arterial Blood Glucose 114 H Arterial Blood Ionized Calcium 4.5 L Urine pH Urine WBC (Auto) Vancomycin Trough Salicylates Acetaminophen Crossmatch 11/26/20 11/26/20 11/27/20 16:55 23:43 05:55 WBC 18.1 H RBC 2.48 L Hgb 7.8 L Hct 23.9 L MCV 97 H MCH MCHC RDW 17.7 H Plt Count Lymph % (Auto) Seg Neutrophils % Seg Neuts % (Manual) Lymphocytes % (Manual) Nucleated RBC % Seg Neutrophils # Seg Neutrophils # Man Lymphocytes # (Manual) Monocytes # (Manual) PT INR ABG pH POC ABG pCO2 POC ABG pO2 ABG pO2 ABG HCO3 ABG O2 Saturation ABG Base Excess ABG Hemoglobin ABG Oxyhemoglobin ABG Sodium ABG Potassium ABG Chloride ABG Glucose Oxyhemoglobin Carboxyhemoglobin Sodium Potassium Chloride Carbon Dioxide BUN Creatinine Glucose POC Glucose 123 H 110 H Lactic Acid Calcium Phosphorus Magnesium Total Creatine Kinase Troponin T Total Protein Albumin Triglycerides LDL Cholesterol Direct HDL Cholesterol Arterial Blood Glucose Arterial Blood Ionized Calcium Urine pH Urine WBC (Auto) Vancomycin Trough Salicylates Acetaminophen Crossmatch 11/27/20 11/27/20 05:55 11:41 WBC RBC Hgb Hct MCV MCH MCHC RDW Plt Count Lymph % (Auto) Seg Neutrophils % Seg Neuts % (Manual) Lymphocytes % (Manual) Nucleated RBC % Seg Neutrophils # Seg Neutrophils # Man Lymphocytes # (Manual) Monocytes # (Manual) PT INR ABG pH POC ABG pCO2 POC ABG pO2 ABG pO2 ABG HCO3 ABG O2 Saturation ABG Base Excess ABG Hemoglobin ABG Oxyhemoglobin ABG Sodium ABG Potassium ABG Chloride ABG Glucose Oxyhemoglobin Carboxyhemoglobin Sodium Potassium Chloride Carbon Dioxide 32 H BUN Creatinine 0.4 L Glucose 133 H POC Glucose 111 H Lactic Acid Calcium 7.5 L Phosphorus Magnesium Total Creatine Kinase Troponin T Total Protein 6.1 L Albumin 1.7 L Triglycerides LDL Cholesterol Direct HDL Cholesterol Arterial Blood Glucose Arterial Blood Ionized Calcium Urine pH Urine WBC (Auto) Vancomycin Trough Salicylates Acetaminophen Crossmatch Chest x-ray: report reviewed, image reviewed (bilateral infiltrates) Allied health notes reviewed: nursing
[2020-11-27] MEDS: ACETAMINOPHEN 325 MG TAB PO PRN (20:28)
[2020-11-27] MEDS: ENOXAPARIN 40 MG/0.4 ML INJ SUB-Q SCH (21:45)
[2020-11-28] MEDS: fentaNYL 100 MCG/2 ML INJ IV PRN (01:00)
[2020-11-28] MEDS: METOPROLOL TARTRATE 25 MG TAB PO SCH ×5 (01:01→23:58)
[2020-11-28] MEDS: AMIODARONE 200 MG TAB PO SCH ×3 (01:01→21:19)
[2020-11-28] MEDS: MIDODRINE 5 MG TAB PO SCH ×3 (08:00→16:57)
[2020-11-28] MEDS: ALBUTEROL 2.5 MG/3 ML NEBU IH SCH ×3 (08:27→22:40)
--- NOTE | 2020-11-28 08:42 | XRay Report ---
CHEST 1 VIEW 11/28/2020 7:18 AM INDICATION / CLINICAL INFORMATION: Pneumonia. COMPARISON: 11/22/2020 FINDINGS: SUPPORT DEVICES: Stable, satisfactory device positioning. HEART / MEDIASTINUM: Stable. LUNGS / PLEURA: Patchy and confluent airspace disease and small bilateral pleural effusions with maría elena lar appearance when compared to 11/22/2020. No pneumothorax. ADDITIONAL FINDINGS: No significant additional findings. IMPRESSION: 1. No significant change. Signer Name: You Lord MD Signed: 11/28/2020 8:37 AM Workstation Name: [id number]
[2020-11-28 09:45] LABS: Blood Urea Nitrogen 15 mg/dL (9-20); Calcium 7.4 mg/dL (8.4-10.2); Hemolysis Index 9
[2020-11-28 09:46] LABS: BUN/Creatinine Ratio 38
[2020-11-28] MEDS ORDERED: FUROSEMIDE 40 MG/4 ML INJ IV ONE (10:00)
[2020-11-28] MEDS: FAMOTIDINE 20 MG TAB PO SCH ×2 (10:00→21:19)
--- NOTE | 2020-11-28 11:25 | Progress Note ---
Assessment and Plan Cultures: 10/26/2020 tracheal aspirate culture: MRSA 10/26/2020 blood culture: Proteus 10/27/2020 urine culture: Mixed hien 11/15/2020 sputum culture: MRSA A/P: 75-year-old male, half-way resident with seizure disorder, hypertension, depression, hyperlipidemia, chronic encephalopathy was sent to the hospital with worsening mental status: #Septic shock: probably from pneumonia. Resolved #Acute hypoxic respiratory failure: on the vent, s/p trach. #Proteus bacteremia: multifactorial from infected sacral decubitus ulcer, bilateral pneumonia, UTI. S/P abx. #Acute diarrhea: ?C. difficile, improved on vancomycin p.o. Diarrhea improved, Cdiff test was not able to be done. #Necrotic, infected sacral decubitus ulcer: underwent debridement 10/29/2020, also noted to have brittle coccyx consistent with osteomyelitis. s/p abx. #UTI: UA with significant pyuria. Culture with mixed hien. S/P abx. #FAZAL: resolved. #PVD: SFA occlusion. Not a candidate for revascularization per vascular Recs: Monitor WBC. Leucocytosis multifactorial including from ischemic feet/digits, large necrotic sacral wound Continue local wound care No fever, remains off pressors. Monitor off antibiotics for now. If patient develops fever >101.5F, get blood cultures and restart on IV Cefepime + Vancomy natacha + Flagyl Guarded prognosis Stephania Starr MD, FACP [facility] ([facility] O: [phone] F: [phone] Subjective Date of service: 11/28/20 Principal diagnosis: Acute Resp Fail, PNA, Septic Shock, Sacral Ulcer, AF with RVR Interval history: No fever. Remains awake, on the vent via trach. No distress. Objective - Exam Narrative Exam: Physical Exam: Constitutional: awake, on the vent Head, Ears, Nose: Normocephalic, atraumatic. External ears, nose normal Eyes: Conjunctivae/corneas clear. No icterus. No ptosis. Neck: trach Oral: limited Cardiovascular: S1, S2 + Respiratory: AE fair bilaterally and equal GI: Soft, bowel sounds +, PEG + Musculoskeletal: Anasarca. Bilateral lower extremities with wounds, ischemic digits Skin: No rash or abscess Hem/Lymphatic: No palpable cervical or supraclavicular nodes. No lymphangitis Psych: no agitation Neurological: awake, on the vent via trach. - Constitutional Vitals: Vital Signs Temp Pulse Resp BP Pulse Ox 98.0 F 92 H 20 117/78 98 11/28/20 08:00 11/28/20 09:00 11/28/20 09:00 11/28/20 09:00 11/28/20 09:00 Temperature -Last 24 Hours Temperature 98.0 F Temperature 98.1 F Temperature 98.7 F Temperature 98.6 F Temperature 98.8 F Temperature 98.3 F Temperature 98.3 F - Labs CBC & Chem 7: 11/27/20 05:55 11/28/20 06:24 Labs: Abnormal lab results 11/27/20 11/27/20 11/27/20 Range/Units 11:41 18:08 23:29 ABG pH (7.320-7.450) POC ABG pO2 (83-108) mmHg ABG Hemoglobin (12.0-17.5) ABG Glucose (65-95) mg/dL Sodium (137-145) mmol/L Creatinine (0.8-1.3) mg/dL Glucose (75-100) mg/dL POC Glucose 111 H 115 H 112 H (70-105) mg/dL Calcium (8.4-10.2) mg/dL Arterial Blood Glucose (65-95) mg/dL Arterial Blood Ionized Calcium (4.6-5.3) mg/dL 11/28/20 11/28/20 11/28/20 Range/Units 03:56 05:12 06:24 ABG pH 7.515 H (7.320-7.450) POC ABG pO2 74.5 L (83-108) mmHg ABG Hemoglobin 8.4 L (12.0-17.5) ABG Glucose 130 H (65-95) mg/dL Sodium 136 L (137-145) mmol/L Creatinine 0.4 L (0.8-1.3) mg/dL Glucose 124 H (75-100) mg/dL POC Glucose 113 H (70-105) mg/dL Calcium 7.4 L (8.4-10.2) mg/dL Arterial Blood Glucose 130 H (65-95) mg/dL Arterial Blood Ionized Calcium 4.5 L (4.6-5.3) mg/dL
--- NOTE | 2020-11-28 12:45 | Progress Note ---
Assessment and Plan Pt is s/p Trach & PEG ventilated, awake and able to follow simple commands. Tele reviewed: A. fib heart rate 100s, high AF 130s. no events overnight. Afib with RVR. Continue current cardiac regimen. Continue Metoprolol to 12.5mg Q6Hr. Continue Amiodarone to 200mg PO BID. Continue Midodrine 10mg PO TID. No systemic AC at this time in setting of anemia requiring PRBC tx, thrombocytopenia and sacral ulcer. Elevated Troponin Considering pt's advanced age and comorbidities will plan for conservative cardiac management. Anemia requiring transfusion Continue to hold AC in setting of anemia requiring transfusions. Acute Respiratory Failure s/p Trach. Ventilated. DVT Prophylaxis. On Lovenox DVT prophylaxis. SCDs in place. Patient currently stable cardiac condition. Continue current cardiac regimen. Will follow on as-needed basis over the weekend. The patient has been seen in conjunction with Dr. Landa who agrees with the assessment and plan of care. - Patient Problems (1) AMS (altered mental status) Current Visit: Yes Status: Acute (2) Atrial fibrillation with RVR Current Visit: Yes Status: Acute (3) Acute respiratory failure Current Visit: Yes Status: Acute (4) Bilateral pneumonia Current Visit: Yes Status: Acute (5) Sepsis Current Visit: Yes Status: Acute (6) Sepsis associated hypotension Current Visit: Yes Status: Acute (7) Sacral decubitus ulcer, stage IV Current Visit: Yes Status: Acute (8) UTI (urinary tract infection) Current Visit: Yes Status: Acute (9) FAZAL (acute kidney injury) Current Visit: Yes Status: Acute (10) Hypomagnesemia Current Visit: Yes Status: Acute (11) Anemia Current Visit: Yes Status: Acute (12) Thrombocytopenia Current Visit: Yes Status: Acute Subjective Date of service: 11/28/20 Principal diagnosis: Acute Resp Fail, PNA, Septic Shock, Sacral Ulcer, AF with RVR Interval history: Pt is s/p Trach & PEG ventilated, awake and able to follow simple commands. Tele reviewed: A. fib heart rate 100s, high AF 130s. no events overnight. Objective Last Vital Signs Temp 98.0 F 11/28/20 08:00 Pulse 90 11/28/20 12:25 Resp 15 11/28/20 11:00 BP 132/85 11/28/20 12:25 Pulse Ox 96 11/28/20 12:25 - Physical Examination General: No Apparent Distress, Other (intubated) HEENT: Positive: EOMI, Normocephaly, Mucus Membranes Moist Neck: Positive: neck supple, trachea midline Cardiac: Positive: irregularly irregular, S1/S2 Lungs: Positive: clear to auscultation, Normal Breath Sounds Neuro: Positive: Other (awake, able to follow simple commands, aphasic s/p trach) Abdomen: Positive: Soft, Active Bowel Sounds. Negative: Tender Skin: Positive: Wound (sacral). Negative: Rash Musculoskeletal: No Fluid Collection, No Pain Extremities: Present: upper extr. pulses, lower extr. pulses, +1 Edema, Other (chronic skin changes noted) - Labs and Meds Comprehensive Metabolic Panel 11/28/20 Range/Units 06:24 Sodium 136 L (137-145) mmol/L Potassium 3.9 (3.6-5.0) mmol/L Chloride 101.6 (98-107) mmol/L Carbon Dioxide 28 (22-30) mmol/L BUN 15 (9-20) mg/dL Creatinine 0.4 L (0.8-1.3) mg/dL Glucose 124 H (75-100) mg/dL Calcium 7.4 L (8.4-10.2) mg/dL - Imaging and Cardiology EKG: report reviewed, image reviewed Echo: report reviewed (10/28/2020- EF 55-60%, no significant valvular abnormalities) - Telemetry EKG Rhythm: Atrial Fibrillation Repolarization changes or abnormalities: nonspecific abnormality, ST segment, and/or T wave - Allied health notes Allied health notes reviewed: nursing
[2020-11-28] MEDS: SODIUM HYPOCHLORITE, DAKIN'S 1/2 STRENGTH (0.25%) 473 ML TOPICAL SOLN TP SCH ×2 (12:49→21:20)
[2020-11-28] MEDS ORDERED: FUROSEMIDE 20 MG/2 ML INJ IV ONE (13:00)
--- NOTE | 2020-11-28 14:10 | Progress Note ---
Assessment and Plan Assessment and Plan Imp: 1. UTI/bacteremia 2. Aspiration/MRSA pneumonia 3. Severe sepsis 4. FAZAL 5. Acute respiratory failure, hypoxia 6. Hypernatremia 7. Poor airway clearance Rec: 1. Finished ABX; monitor closely; ID following 2. Cont. Albuterol nebs plus CPT vest 3. TFs 4. Transfuse if H/H less than 7.0/21.0 5. Lovenox and Pepcid for PPx 6. CXR reviewed no significant change possible fluid overload 7. Likely would benefit from more diuresis 8. PSV trials failed back on assist control. Wean ventilator as tolerated 9. LTAC placement pending 10. CCT 31 minutes Subjective Date of service: 11/28/20 Principal diagnosis: Acute Resp Fail, PNA, Septic Shock, Sacral Ulcer, AF with RVR Interval history: Patient awake and responsive. Could not tolerate PSV because of high respiratory rate. Back on assist control mode. Objective Vital Signs - 12hr 11/28/20 11/28/20 11/28/20 02:30 03:00 03:30 Temperature Pulse Rate 92 H 94 H 97 H Pulse Rate [ Anterior Bilateral Throughout] Pulse Rate [ From Monitor] Respiratory 25 H 28 H 29 H Rate Respiratory Rate [Anterior Bilateral Throughout] Blood Pressure 115/60 108/67 116/69 O2 Sat by Pulse 92 92 94 Oximetry 11/28/20 11/28/20 11/28/20 03:48 03:49 04:00 Temperature 98.7 F 98.1 F Pulse Rate 99 H 91 H Pulse Rate [ Anterior Bilateral Throughout] Pulse Rate [ From Monitor] Respiratory 13 Rate Respiratory Rate [Anterior Bilateral Throughout] Blood Pressure 128/72 O2 Sat by Pulse 95 92 Oximetry 11/28/20 11/28/20 11/28/20 04:30 05:00 05:30 Temperature Pulse Rate 100 H 95 H 95 H Pulse Rate [ Anterior Bilateral Throughout] Pulse Rate [ From Monitor] Respiratory 14 18 18 Rate Respiratory Rate [Anterior Bilateral Throughout] Blood Pressure 121/75 119/75 116/68 O2 Sat by Pulse 95 92 94 Oximetry 11/28/20 11/28/20 11/28/20 05:50 05:54 06:00 Temperature Pulse Rate 98 H 98 H 94 H Pulse Rate [ Anterior Bilateral Throughout] Pulse Rate [ From Monitor] Respiratory 21 Rate Respiratory Rate [Anterior Bilateral Throughout] Blood Pressure 116/68 118/72 O2 Sat by Pulse 88 93 Oximetry 11/28/20 11/28/20 11/28/20 06:30 07:00 07:30 Temperature Pulse Rate 92 H 84 93 H Pulse Rate [ Anterior Bilateral Throughout] Pulse Rate [ From Monitor] Respiratory 19 20 19 Rate Respiratory Rate [Anterior Bilateral Throughout] Blood Pressure 111/68 111/67 116/74 O2 Sat by Pulse 93 93 93 Oximetry 11/28/20 11/28/20 11/28/20 08:00 08:17 08:27 Temperature 98.0 F Pulse Rate 87 88 Pulse Rate [ 92 H Anterior Bilateral Throughout] Pulse Rate [ 94 H From Monitor] Respiratory 17 Rate Respiratory 15 Rate [Anterior Bilateral Throughout] Blood Pressure 118/71 118/71 O2 Sat by Pulse 93 99 Oximetry 11/28/20 11/28/20 11/28/20 08:30 09:00 09:30 Temperature Pulse Rate 95 H 92 H 91 H Pulse Rate [ Anterior Bilateral Throughout] Pulse Rate [ From Monitor] Respiratory 14 20 20 Rate Respiratory Rate [Anterior Bilateral Throughout] Blood Pressure 123/71 117/78 113/69 O2 Sat by Pulse 96 98 94 Oximetry 11/28/20 11/28/20 11/28/20 10:01 10:30 11:00 Temperature Pulse Rate 89 95 H 93 H Pulse Rate [ Anterior Bilateral Throughout] Pulse Rate [ From Monitor] Respiratory 14 18 15 Rate Respiratory Rate [Anterior Bilateral Throughout] Blood Pressure 117/85 118/81 110/81 O2 Sat by Pulse 98 97 97 Oximetry 11/28/20 11/28/20 11/28/20 11:30 12:00 12:20 Temperature 98.0 F Pulse Rate 96 H 93 H 96 H Pulse Rate [ Anterior Bilateral Throughout] Pulse Rate [ 89 From Monitor] Respiratory 18 20 Rate Respiratory Rate [Anterior Bilateral Throughout] Blood Pressure 118/76 127/84 O2 Sat by Pulse 94 97 Oximetry 11/28/20 11/28/20 11/28/20 12:25 12:30 13:00 Temperature Pulse Rate 90 88 93 H Pulse Rate [ Anterior Bilateral Throughout] Pulse Rate [ From Monitor] Respiratory 18 20 Rate Respiratory Rate [Anterior Bilateral Throughout] Blood Pressure 132/85 132/85 143/85 O2 Sat by Pulse 96 96 90 Oximetry Constitutional: alert, other (trach on vent) Eyes: non-icteric ENT: oropharynx moist Neck: supple Effort: normal Ascultation: Bilateral: clear, rhonchi Percussion: Bilateral: not dull Cardiovascular: regular rate and rhythm (no mrg) Gastrointestinal: normoactive bowel sounds, soft, non-tender Extremities: no cyanosis, cool, anasarca Neurologic: normal mental status, non-focal exam Psychiatric: mood appropriate, affect normal CBC and BMP: 11/27/20 05:55 11/28/20 06:24 ABG, PT/INR, D-dimer: ABG ABG pH 7.515 (7.320-7.450) H 11/28/20 03:56 POC ABG pCO2 38.5 mmHg (32.0-48.0) 11/28/20 03:56 ABG pCO2 43.4 mm Hg 11/19/20 Unknown POC ABG pO2 74.5 mmHg (83-108) L 11/28/20 03:56 ABG pO2 72.4 mm Hg (80.0-90.0) L 11/19/20 Unknown POC ABG HCO3 30.4 11/28/20 03:56 ABG O2 Saturation 95.8 (0-100) 11/28/20 03:56 PT/INR, D-dimer PT 14.7 Sec. (12.2-14.9) 11/19/20 06:36 INR 1.15 (0.87-1.13) H 11/19/20 06:36 Abnormal lab findings: Abnormal Labs 10/26/20 10/26/20 10/26/20 17:25 17:25 17:25 WBC 23.3 H RBC 3.10 L Hgb 9.6 L Hct 30.3 L MCV 98 H MCH MCHC RDW 17.4 H Plt Count 521 H Lymph % (Auto) Seg Neutrophils % Seg Neuts % (Manual) 78.0 H Lymphocytes % (Manual) 11.0 L Nucleated RBC % Seg Neutrophils # Seg Neutrophils # Man 18.2 H Lymphocytes # (Manual) Monocytes # (Manual) 1.4 H PT INR ABG pH POC ABG pCO2 POC ABG pO2 ABG pO2 ABG HCO3 ABG O2 Saturation ABG Base Excess ABG Hemoglobin ABG Oxyhemoglobin ABG Sodium ABG Potassium ABG Chloride ABG Glucose Oxyhemoglobin Carboxyhemoglobin Sodium 148 H Potassium Chloride 109.3 H Carbon Dioxide 19 L BUN 57 H Creatinine 1.5 H Glucose 151 H POC Glucose Lactic Acid 9.60 H* Calcium Phosphorus Magnesium Total Creatine Kinase Troponin T 0.062 H Total Protein Albumin 1.7 L Triglycerides 190 H LDL Cholesterol Direct 33 L HDL Cholesterol 18 L Arterial Blood Glucose Arterial Blood Ionized Calcium Urine pH Urine WBC (Auto) Vancomycin Trough Salicylates Acetaminophen Crossmatch 10/26/20 10/26/20 10/26/20 17:28 17:28 17:28 WBC RBC Hgb Hct MCV MCH MCHC RDW Plt Count Lymph % (Auto) Seg Neutrophils % Seg Neuts % (Manual) Lymphocytes % (Manual) Nucleated RBC % Seg Neutrophils # Seg Neutrophils # Man Lymphocytes # (Manual) Monocytes # (Manual) PT INR ABG pH POC ABG pCO2 POC ABG pO2 ABG pO2 ABG HCO3 ABG O2 Saturation ABG Base Excess ABG Hemoglobin ABG Oxyhemoglobin ABG Sodium ABG Potassium ABG Chloride ABG Glucose Oxyhemoglobin Carboxyhemoglobin Sodium Potassium Chloride Carbon Dioxide BUN Creatinine Glucose POC Glucose Lactic Acid Calcium Phosphorus Magnesium Total Creatine Kinase 31 L Troponin T Total Protein Albumin Triglycerides LDL Cholesterol Direct HDL Cholesterol Arterial Blood Glucose Arterial Blood Ionized Calcium Urine pH Urine WBC (Auto) Vancomycin Trough Salicylates < 0.3 L Acetaminophen 5.0 L Crossmatch 10/26/20 10/26/20 10/26/20 17:30 20:11 22:00 WBC RBC Hgb Hct MCV MCH MCHC RDW Plt Count Lymph % (Auto) Seg Neutrophils % Seg Neuts % (Manual) Lymphocytes % (Manual) Nucleated RBC % Seg Neutrophils # Seg Neutrophils # Man Lymphocytes # (Manual) Monocytes # (Manual) PT INR ABG pH 7.235 L POC ABG pCO2 POC ABG pO2 ABG pO2 312.4 H ABG HCO3 16.4 L ABG O2 Saturation 99.5 H ABG Base Excess -10.4 L ABG Hemoglobin 11.0 L ABG Oxyhemoglobin ABG Sodium ABG Potassium ABG Chloride ABG Glucose Oxyhemoglobin Carboxyhemoglobin Sodium Potassium Chloride Carbon Dioxide BUN Creatinine Glucose POC Glucose Lactic Acid 7.70 H* 6.40 H* Calcium Phosphorus Magnesium Total Creatine Kinase Troponin T Total Protein Albumin Triglycerides LDL Cholesterol Direct HDL Cholesterol Arterial Blood Glucose Arterial Blood Ionized Calcium Urine pH Urine WBC (Auto) Vancomycin Trough Salicylates Acetaminophen Crossmatch 10/27/20 10/27/20 10/27/20 03:25 03:30 04:00 WBC 20.3 H RBC 3.10 L Hgb 9.6 L Hct 30.6 L MCV 99 H MCH MCHC 31 L RDW 16.9 H Plt Count Lymph % (Auto) Seg Neutrophils % Seg Neuts % (Manual) Lymphocytes % (Manual) Nucleated RBC % Seg Neutrophils # Seg Neutrophils # Man 11.6 H Lymphocytes # (Manual) Monocytes # (Manual) PT INR ABG pH 7.218 L POC ABG pCO2 POC ABG pO2 62.9 L ABG pO2 ABG HCO3 ABG O2 Saturation ABG Base Excess ABG Hemoglobin 10.6 L ABG Oxyhemoglobin 86.6 L ABG Sodium ABG Potassium 4.8 H ABG Chloride 114.0 H ABG Glucose 116 H Oxyhemoglobin Carboxyhemoglobin 0.4 L Sodium Potassium Chloride 110.2 H Carbon Dioxide 17 L BUN 55 H Creatinine 1.5 H Glucose 109 H POC Glucose Lactic Acid Calcium 7.9 L Phosphorus Magnesium Total Creatine Kinase Troponin T Total Protein Albumin 1.3 L Triglycerides LDL Cholesterol Direct HDL Cholesterol Arterial Blood Glucose 116 H Arterial Blood Ionized Calcium Urine pH Urine WBC (Auto) Vancomycin Trough Salicylates Acetaminophen Crossmatch 10/27/20 10/28/20 10/28/20 Unknown 00:40 00:40 WBC 23.1 H RBC 2.42 L Hgb 7.5 L Hct 23.7 L D MCV 98 H MCH MCHC RDW 16.8 H Plt Count Lymph % (Auto) Seg Neutrophils % Seg Neuts % (Manual) Lymphocytes % (Manual) Nucleated RBC % Seg Neutrophils # Seg Neutrophils # Man Lymphocytes # (Manual) Monocytes # (Manual) PT INR ABG pH POC ABG pCO2 POC ABG pO2 ABG pO2 ABG HCO3 ABG O2 Saturation ABG Base Excess ABG Hemoglobin ABG Oxyhemoglobin ABG Sodium ABG Potassium ABG Chloride ABG Glucose Oxyhemoglobin Carboxyhemoglobin Sodium Potassium Chloride 111.4 H Carbon Dioxide 19 L BUN 49 H Creatinine Glucose POC Glucose Lactic Acid Calcium 7.3 L Phosphorus Magnesium 1.40 L Total Creatine Kinase Troponin T Total Protein 5.8 L Albumin 1.2 L Triglycerides LDL Cholesterol Direct HDL Cholesterol Arterial Blood Glucose Arterial Blood Ionized Calcium Urine pH 8.0 H Urine WBC (Auto) > 182.0 H Vancomycin Trough Salicylates Acetaminophen Crossmatch 10/28/20 10/28/20 10/28/20 03:30 05:36 05:36 WBC RBC Hgb Hct MCV MCH MCHC RDW Plt Count Lymph % (Auto) Seg Neutrophils % Seg Neuts % (Manual) Lymphocytes % (Manual) Nucleated RBC % Seg Neutrophils # Seg Neutrophils # Man Lymphocytes # (Manual) Monocytes # (Manual) PT INR ABG pH 7.175 L POC ABG pCO2 POC ABG pO2 71.5 L ABG pO2 ABG HCO3 ABG O2 Saturation ABG Base Excess ABG Hemoglobin 8.8 L ABG Oxyhemoglobin ABG Sodium ABG Potassium 4.7 H ABG Chloride 114.0 H ABG Glucose 100 H Oxyhemoglobin Carboxyhemoglobin Sodium Potassium Chloride 114.6 H Carbon Dioxide 15 L BUN 48 H Creatinine 1.4 H Glucose POC Glucose Lactic Acid 7.60 H* Calcium 7.7 L Phosphorus Magnesium Total Creatine Kinase Troponin T Total Protein Albumin Triglycerides LDL Cholesterol Direct HDL Cholesterol Arterial Blood Glucose 100 H Arterial Blood Ionized Calcium 4.4 L Urine pH Urine WBC (Auto) Vancomycin Trough Salicylates Acetaminophen Crossmatch 10/28/20 10/28/20 10/29/20 17:18 23:18 03:50 WBC RBC Hgb Hct MCV MCH MCHC RDW Plt Count Lymph % (Auto) Seg Neutrophils % Seg Neuts % (Manual) Lymphocytes % (Manual) Nucleated RBC % Seg Neutrophils # Seg Neutrophils # Man Lymphocytes # (Manual) Monocytes # (Manual) PT INR ABG pH POC ABG pCO2 30.0 L POC ABG pO2 ABG pO2 ABG HCO3 ABG O2 Saturation ABG Base Excess ABG Hemoglobin 8.1 L ABG Oxyhemoglobin ABG Sodium ABG Potassium ABG Chloride 113.0 H ABG Glucose 153 H Oxyhemoglobin Carboxyhemoglobin 0.4 L Sodium Potassium Chloride Carbon Dioxide BUN Creatinine Glucose POC Glucose 134 H 149 H Lactic Acid Calcium Phosphorus Magnesium Total Creatine Kinase Troponin T Total Protein Albumin Triglycerides LDL Cholesterol Direct HDL Cholesterol Arterial Blood Glucose 153 H Arterial Blood Ionized Calcium 4.1 L Urine pH Urine WBC (Auto) Vancomycin Trough Salicylates Acetaminophen Crossmatch 10/29/20 10/29/20 10/29/20 05:09 05:15 05:15 WBC 23.9 H RBC 2.66 L Hgb 8.3 L Hct 26.3 L MCV 99 H MCH MCHC RDW 17.5 H Plt Count Lymph % (Auto) Seg Neutrophils % Seg Neuts % (Manual) Lymphocytes % (Manual) Nucleated RBC % Seg Neutrophils # Seg Neutrophils # Man Lymphocytes # (Manual) Monocytes # (Manual) PT INR ABG pH POC ABG pCO2 POC ABG pO2 ABG pO2 ABG HCO3 ABG O2 Saturation ABG Base Excess ABG Hemoglobin ABG Oxyhemoglobin ABG Sodium ABG Potassium ABG Chloride ABG Glucose Oxyhemoglobin Carboxyhemoglobin Sodium Potassium Chloride 110.4 H Carbon Dioxide 15 L BUN 40 H Creatinine Glucose 140 H POC Glucose 123 H Lactic Acid Calcium 7.0 L Phosphorus Magnesium Total Creatine Kinase Troponin T Total Protein 6.0 L Albumin 1.0 L Triglycerides LDL Cholesterol Direct HDL Cholesterol Arterial Blood Glucose Arterial Blood Ionized Calcium Urine pH Urine WBC (Auto) Vancomycin Trough Salicylates Acetaminophen Crossmatch 10/29/20 10/29/20 10/29/20 05:15 10:37 11:41 WBC RBC Hgb Hct MCV MCH MCHC RDW Plt Count Lymph % (Auto) Seg Neutrophils % Seg Neuts % (Manual) Lymphocytes % (Manual) Nucleated RBC % Seg Neutrophils # Seg Neutrophils # Man Lymphocytes # (Manual) Monocytes # (Manual) PT INR ABG pH POC ABG pCO2 POC ABG pO2 ABG pO2 ABG HCO3 ABG O2 Saturation ABG Base Excess ABG Hemoglobin ABG Oxyhemoglobin ABG Sodium ABG Potassium ABG Chloride ABG Glucose Oxyhemoglobin Carboxyhemoglobin Sodium Potassium Chloride Carbon Dioxide BUN Creatinine Glucose POC Glucose 121 H Lactic Acid 9.90 H* 10.90 H* Calcium Phosphorus Magnesium Total Creatine Kinase Troponin T Total Protein Albumin Triglycerides LDL Cholesterol Direct HDL Cholesterol Arterial Blood Glucose Arterial Blood Ionized Calcium Urine pH Urine WBC (Auto) Vancomycin Trough Salicylates Acetaminophen Crossmatch 10/29/20 10/29/20 10/30/20 15:56 23:24 02:26 WBC RBC Hgb Hct MCV MCH MCHC RDW Plt Count Lymph % (Auto) Seg Neutrophils % Seg Neuts % (Manual) Lymphocytes % (Manual) Nucleated RBC % Seg Neutrophils # Seg Neutrophils # Man Lymphocytes # (Manual) Monocytes # (Manual) PT INR ABG pH POC ABG pCO2 POC ABG pO2 76.6 L ABG pO2 ABG HCO3 ABG O2 Saturation ABG Base Excess ABG Hemoglobin 6.4 L ABG Oxyhemoglobin 93.8 L ABG Sodium ABG Potassium 2.9 L ABG Chloride 110.0 H ABG Glucose 212 H Oxyhemoglobin Carboxyhemoglobin Sodium Potassium Chloride Carbon Dioxide BUN Creatinine Glucose POC Glucose 132 H 175 H Lactic Acid Calcium Phosphorus Magnesium Total Creatine Kinase Troponin T Total Protein Albumin Triglycerides LDL Cholesterol Direct HDL Cholesterol Arterial Blood Glucose 212 H Arterial Blood Ionized Calcium 3.9 L Urine pH Urine WBC (Auto) Vancomycin Trough Salicylates Acetaminophen Crossmatch 10/30/20 10/30/20 10/30/20 04:54 04:54 05:14 WBC 20.7 H RBC 2.28 L Hgb 7.0 L Hct 21.9 L MCV 96 H MCH MCHC RDW 17.0 H Plt Count 90 L Lymph % (Auto) Seg Neutrophils % Seg Neuts % (Manual) Lymphocytes % (Manual) Nucleated RBC % Seg Neutrophils # Seg Neutrophils # Man Lymphocytes # (Manual) Monocytes # (Manual) PT INR ABG pH POC ABG pCO2 POC ABG pO2 ABG pO2 ABG HCO3 ABG O2 Saturation ABG Base Excess ABG Hemoglobin ABG Oxyhemoglobin ABG Sodium ABG Potassium ABG Chloride ABG Glucose Oxyhemoglobin Carboxyhemoglobin Sodium Potassium 3.0 L D Chloride Carbon Dioxide BUN 28 H Creatinine 0.6 L Glucose 214 H POC Glucose 187 H Lactic Acid Calcium 6.2 L Phosphorus Magnesium Total Creatine Kinase Troponin T Total Protein Albumin Triglycerides LDL Cholesterol Direct HDL Cholesterol Arterial Blood Glucose Arterial Blood Ionized Calcium Urine pH Urine WBC (Auto) Vancomycin Trough Salicylates Acetaminophen Crossmatch 10/30/20 10/30/20 10/30/20 09:30 11:40 17:51 WBC RBC Hgb Hct MCV MCH MCHC RDW Plt Count Lymph % (Auto) Seg Neutrophils % Seg Neuts % (Manual) Lymphocytes % (Manual) Nucleated RBC % Seg Neutrophils # Seg Neutrophils # Man Lymphocytes # (Manual) Monocytes # (Manual) PT INR ABG pH POC ABG pCO2 POC ABG pO2 ABG pO2 ABG HCO3 ABG O2 Saturation ABG Base Excess ABG Hemoglobin ABG Oxyhemoglobin ABG Sodium ABG Potassium ABG Chloride ABG Glucose Oxyhemoglobin Carboxyhemoglobin Sodium Potassium Chloride Carbon Dioxide BUN Creatinine Glucose POC Glucose 183 H 136 H Lactic Acid Calcium Phosphorus Magnesium Total Creatine Kinase Troponin T Total Protein Albumin Triglycerides LDL Cholesterol Direct HDL Cholesterol Arterial Blood Glucose Arterial Blood Ionized Calcium Urine pH Urine WBC (Auto) Vancomycin Trough Salicylates Acetaminophen Crossmatch See Detail 10/30/20 10/30/20 10/30/20 18:53 23:25 Unknown WBC RBC Hgb Hct MCV MCH MCHC RDW Plt Count Lymph % (Auto) Seg Neutrophils % Seg Neuts % (Manual) Lymphocytes % (Manual) Nucleated RBC % Seg Neutrophils # Seg Neutrophils # Man Lymphocytes # (Manual) Monocytes # (Manual) PT INR ABG pH POC ABG pCO2 POC ABG pO2 ABG pO2 ABG HCO3 ABG O2 Saturation ABG Base Excess ABG Hemoglobin ABG Oxyhemoglobin ABG Sodium ABG Potassium ABG Chloride ABG Glucose Oxyhemoglobin Carboxyhemoglobin Sodium Potassium Chloride Carbon Dioxide BUN Creatinine Glucose POC Glucose 130 H Lactic Acid Calcium Phosphorus Magnesium Total Creatine Kinase Troponin T Total Protein Albumin Triglycerides LDL Cholesterol Direct HDL Cholesterol Arterial Blood Glucose Arterial Blood Ionized Calcium Urine pH Urine WBC (Auto) Vancomycin Trough 21.4 H 22.0 H Salicylates Acetaminophen Crossmatch 10/30/20 10/31/20 10/31/20 Unknown 02:54 03:42 WBC 21.1 H 23.0 H RBC 2.36 L Hgb 7.3 L 11.4 L D Hct 22.7 L 34.1 L D MCV 96 H MCH MCHC RDW 17.1 H 16.2 H Plt Count 73 L 33 L Lymph % (Auto) Seg Neutrophils % Seg Neuts % (Manual) Lymphocytes % (Manual) Nucleated RBC % Seg Neutrophils # Seg Neutrophils # Man Lymphocytes # (Manual) Monocytes # (Manual) PT INR ABG pH 7.517 H POC ABG pCO2 25.7 L POC ABG pO2 52.3 L ABG pO2 ABG HCO3 ABG O2 Saturation ABG Base Excess ABG Hemoglobin ABG Oxyhemoglobin 90.8 L ABG Sodium ABG Potassium ABG Chloride 109.0 H ABG Glucose 147 H Oxyhemoglobin Carboxyhemoglobin Sodium Potassium Chloride Carbon Dioxide BUN Creatinine Glucose POC Glucose Lactic Acid Calcium Phosphorus Magnesium Total Creatine Kinase Troponin T Total Protein Albumin Triglycerides LDL Cholesterol Direct HDL Cholesterol Arterial Blood Glucose 147 H Arterial Blood Ionized Calcium 4.0 L Urine pH Urine WBC (Auto) Vancomycin Trough Salicylates Acetaminophen Crossmatch 10/31/20 10/31/20 10/31/20 04:37 04:37 05:08 WBC 21.7 H RBC Hgb Hct MCV MCH MCHC RDW 16.1 H Plt Count 39 L Lymph % (Auto) Seg Neutrophils % Seg Neuts % (Manual) Lymphocytes % (Manual) Nucleated RBC % Seg Neutrophils # Seg Neutrophils # Man Lymphocytes # (Manual) Monocytes # (Manual) PT INR ABG pH POC ABG pCO2 POC ABG pO2 ABG pO2 ABG HCO3 ABG O2 Saturation ABG Base Excess ABG Hemoglobin ABG Oxyhemoglobin ABG Sodium ABG Potassium ABG Chloride ABG Glucose Oxyhemoglobin Carboxyhemoglobin Sodium Potassium Chloride 108.4 H Carbon Dioxide BUN 25 H Creatinine 0.5 L Glucose 140 H POC Glucose 140 H Lactic Acid Calcium 6.1 L Phosphorus Magnesium 1.50 L Total Creatine Kinase Troponin T Total Protein Albumin Triglycerides LDL Cholesterol Direct HDL Cholesterol Arterial Blood Glucose Arterial Blood Ionized Calcium Urine pH Urine WBC (Auto) Vancomycin Trough Salicylates Acetaminophen Crossmatch 10/31/20 10/31/20 10/31/20 11:12 18:50 23:21 WBC RBC Hgb Hct MCV MCH MCHC RDW Plt Count Lymph % (Auto) Seg Neutrophils % Seg Neuts % (Manual) Lymphocytes % (Manual) Nucleated RBC % Seg Neutrophils # Seg Neutrophils # Man Lymphocytes # (Manual) Monocytes # (Manual) PT INR ABG pH POC ABG pCO2 POC ABG pO2 ABG pO2 ABG HCO3 ABG O2 Saturation ABG Base Excess ABG Hemoglobin ABG Oxyhemoglobin ABG Sodium ABG Potassium ABG Chloride ABG Glucose Oxyhemoglobin Carboxyhemoglobin Sodium Potassium Chloride Carbon Dioxide BUN Creatinine Glucose POC Glucose 125 H 142 H 127 H Lactic Acid Calcium Phosphorus Magnesium Total Creatine Kinase Troponin T Total Protein Albumin Triglycerides LDL Cholesterol Direct HDL Cholesterol Arterial Blood Glucose Arterial Blood Ionized Calcium Urine pH Urine WBC (Auto) Vancomycin Trough Salicylates Acetaminophen Crossmatch 10/31/20 11/01/20 11/01/20 Unknown 03:40 04:21 WBC RBC Hgb Hct MCV MCH MCHC RDW Plt Count Lymph % (Auto) Seg Neutrophils % Seg Neuts % (Manual) Lymphocytes % (Manual) Nucleated RBC % Seg Neutrophils # Seg Neutrophils # Man Lymphocytes # (Manual) Monocytes # (Manual) PT INR ABG pH 7.489 H POC ABG pCO2 POC ABG pO2 ABG pO2 77.2 L ABG HCO3 ABG O2 Saturation ABG Base Excess ABG Hemoglobin 7.1 L ABG Oxyhemoglobin ABG Sodium ABG Potassium ABG Chloride ABG Glucose Oxyhemoglobin Carboxyhemoglobin Sodium Potassium 3.1 L Chloride 107.1 H Carbon Dioxide BUN 25 H Creatinine 0.5 L Glucose 148 H POC Glucose Lactic Acid 4.30 H* Calcium 6.0 L Phosphorus Magnesium Total Creatine Kinase Troponin T Total Protein Albumin Triglycerides LDL Cholesterol Direct HDL Cholesterol Arterial Blood Glucose Arterial Blood Ionized Calcium Urine pH Urine WBC (Auto) Vancomycin Trough Salicylates Acetaminophen Crossmatch 11/01/20 11/01/20 11/01/20 05:13 11:42 17:38 WBC RBC Hgb Hct MCV MCH MCHC RDW Plt Count Lymph % (Auto) Seg Neutrophils % Seg Neuts % (Manual) Lymphocytes % (Manual) Nucleated RBC % Seg Neutrophils # Seg Neutrophils # Man Lymphocytes # (Manual) Monocytes # (Manual) PT INR ABG pH POC ABG pCO2 POC ABG pO2 ABG pO2 ABG HCO3 ABG O2 Saturation ABG Base Excess ABG Hemoglobin ABG Oxyhemoglobin ABG Sodium ABG Potassium ABG Chloride ABG Glucose Oxyhemoglobin Carboxyhemoglobin Sodium Potassium Chloride Carbon Dioxide BUN Creatinine Glucose POC Glucose 139 H 139 H 161 H Lactic Acid Calcium Phosphorus Magnesium Total Creatine Kinase Troponin T Total Protein Albumin Triglycerides LDL Cholesterol Direct HDL Cholesterol Arterial Blood Glucose Arterial Blood Ionized Calcium Urine pH Urine WBC (Auto) Vancomycin Trough Salicylates Acetaminophen Crossmatch 11/01/20 11/01/20 11/02/20 23:20 Unknown 04:30 WBC 18.2 H RBC 3.27 L Hgb 9.9 L Hct 30.1 L D MCV MCH MCHC RDW 15.7 H Plt Count 34 L Lymph % (Auto) Seg Neutrophils % Seg Neuts % (Manual) Lymphocytes % (Manual) Nucleated RBC % Seg Neutrophils # Seg Neutrophils # Man Lymphocytes # (Manual) Monocytes # (Manual) PT INR ABG pH 7.456 H POC ABG pCO2 POC ABG pO2 ABG pO2 ABG HCO3 ABG O2 Saturation ABG Base Excess ABG Hemoglobin 9.2 L ABG Oxyhemoglobin ABG Sodium ABG Potassium ABG Chloride ABG Glucose Oxyhemoglobin Carboxyhemoglobin Sodium Potassium Chloride Carbon Dioxide BUN Creatinine Glucose POC Glucose 168 H Lactic Acid Calcium Phosphorus Magnesium Total Creatine Kinase Troponin T Total Protein Albumin Triglycerides LDL Cholesterol Direct HDL Cholesterol Arterial Blood Glucose Arterial Blood Ionized Calcium Urine pH Urine WBC (Auto) Vancomycin Trough Salicylates Acetaminophen Crossmatch 11/02/20 11/02/20 11/02/20 06:29 08:40 08:40 WBC 16.6 H RBC 2.87 L Hgb 8.8 L Hct 26.6 L MCV MCH MCHC RDW 15.8 H Plt Count 30 L Lymph % (Auto) Seg Neutrophils % Seg Neuts % (Manual) 97.0 H Lymphocytes % (Manual) 2.0 L Nucleated RBC % 1.0 H Seg Neutrophils # Seg Neutrophils # Man 16.1 H Lymphocytes # (Manual) 0.3 L Monocytes # (Manual) PT INR ABG pH POC ABG pCO2 POC ABG pO2 ABG pO2 ABG HCO3 ABG O2 Saturation ABG Base Excess ABG Hemoglobin ABG Oxyhemoglobin ABG Sodium ABG Potassium ABG Chloride ABG Glucose Oxyhemoglobin Carboxyhemoglobin Sodium Potassium 2.4 L* D Chloride 110.2 H Carbon Dioxide BUN 23 H Creatinine 0.4 L Glucose 154 H POC Glucose 131 H Lactic Acid Calcium 6.1 L Phosphorus Magnesium 1.50 L Total Creatine Kinase Troponin T Total Protein Albumin Triglycerides LDL Cholesterol Direct HDL Cholesterol Arterial Blood Glucose Arterial Blood Ionized Calcium Urine pH Urine WBC (Auto) Vancomycin Trough Salicylates Acetaminophen Crossmatch 11/02/20 11/02/20 11/02/20 13:17 17:25 18:05 WBC RBC Hgb Hct MCV MCH MCHC RDW Plt Count Lymph % (Auto) Seg Neutrophils % Seg Neuts % (Manual) Lymphocytes % (Manual) Nucleated RBC % Seg Neutrophils # Seg Neutrophils # Man Lymphocytes # (Manual) Monocytes # (Manual) PT INR ABG pH POC ABG pCO2 POC ABG pO2 ABG pO2 ABG HCO3 ABG O2 Saturation ABG Base Excess ABG Hemoglobin ABG Oxyhemoglobin ABG Sodium ABG Potassium ABG Chloride ABG Glucose Oxyhemoglobin Carboxyhemoglobin Sodium Potassium 3.1 L D Chloride Carbon Dioxide BUN Creatinine Glucose POC Glucose 134 H 140 H Lactic Acid Calcium Phosphorus Magnesium Total Creatine Kinase Troponin T Total Protein Albumin Triglycerides LDL Cholesterol Direct HDL Cholesterol Arterial Blood Glucose Arterial Blood Ionized Calcium Urine pH Urine WBC (Auto) Vancomycin Trough Salicylates Acetaminophen Crossmatch 11/02/20 11/03/20 11/03/20 23:36 04:15 05:07 WBC RBC Hgb Hct MCV MCH MCHC RDW Plt Count Lymph % (Auto) Seg Neutrophils % Seg Neuts % (Manual) Lymphocytes % (Manual) Nucleated RBC % Seg Neutrophils # Seg Neutrophils # Man Lymphocytes # (Manual) Monocytes # (Manual) PT INR ABG pH POC ABG pCO2 POC ABG pO2 ABG pO2 ABG HCO3 ABG O2 Saturation ABG Base Excess ABG Hemoglobin ABG Oxyhemoglobin ABG Sodium ABG Potassium ABG Chloride ABG Glucose Oxyhemoglobin Carboxyhemoglobin Sodium Potassium 3.0 L Chloride 111.8 H Carbon Dioxide BUN 24 H Creatinine 0.3 L Glucose 141 H POC Glucose 127 H 156 H Lactic Acid Calcium 5.8 L* Phosphorus Magnesium 1.60 L Total Creatine Kinase Troponin T Total Protein Albumin Triglycerides LDL Cholesterol Direct HDL Cholesterol Arterial Blood Glucose Arterial Blood Ionized Calcium Urine pH Urine WBC (Auto) Vancomycin Trough Salicylates Acetaminophen Crossmatch 11/03/20 11/03/20 11/04/20 11:14 17:31 00:17 WBC RBC Hgb Hct MCV MCH MCHC RDW Plt Count Lymph % (Auto) Seg Neutrophils % Seg Neuts % (Manual) Lymphocytes % (Manual) Nucleated RBC % Seg Neutrophils # Seg Neutrophils # Man Lymphocytes # (Manual) Monocytes # (Manual) PT INR ABG pH POC ABG pCO2 POC ABG pO2 ABG pO2 ABG HCO3 ABG O2 Saturation ABG Base Excess ABG Hemoglobin ABG Oxyhemoglobin ABG Sodium ABG Potassium ABG Chloride ABG Glucose Oxyhemoglobin Carboxyhemoglobin Sodium Potassium Chloride Carbon Dioxide BUN Creatinine Glucose POC Glucose 137 H 151 H 156 H Lactic Acid Calcium Phosphorus Magnesium Total Creatine Kinase Troponin T Total Protein Albumin Triglycerides LDL Cholesterol Direct HDL Cholesterol Arterial Blood Glucose Arterial Blood Ionized Calcium Urine pH Urine WBC (Auto) Vancomycin Trough Salicylates Acetaminophen Crossmatch 11/04/20 11/04/20 11/04/20 05:34 05:34 11:16 WBC 21.9 H RBC 2.67 L Hgb 8.2 L Hct 24.8 L MCV MCH MCHC RDW 15.6 H Plt Count 48 L Lymph % (Auto) Seg Neutrophils % Seg Neuts % (Manual) Lymphocytes % (Manual) Nucleated RBC % Seg Neutrophils # Seg Neutrophils # Man Lymphocytes # (Manual) Monocytes # (Manual) PT INR ABG pH POC ABG pCO2 POC ABG pO2 ABG pO2 ABG HCO3 ABG O2 Saturation ABG Base Excess ABG Hemoglobin ABG Oxyhemoglobin ABG Sodium ABG Potassium ABG Chloride ABG Glucose Oxyhemoglobin Carboxyhemoglobin Sodium 146 H Potassium Chloride 114.6 H Carbon Dioxide BUN 29 H Creatinine 0.3 L Glucose 173 H POC Glucose 156 H Lactic Acid Calcium 5.7 L* Phosphorus Magnesium Total Creatine Kinase Troponin T Total Protein Albumin Triglycerides LDL Cholesterol Direct HDL Cholesterol Arterial Blood Glucose Arterial Blood Ionized Calcium Urine pH Urine WBC (Auto) Vancomycin Trough Salicylates Acetaminophen Crossmatch 11/04/20 11/04/20 11/04/20 11:42 17:18 23:12 WBC RBC Hgb Hct MCV MCH MCHC RDW Plt Count Lymph % (Auto) Seg Neutrophils % Seg Neuts % (Manual) Lymphocytes % (Manual) Nucleated RBC % Seg Neutrophils # Seg Neutrophils # Man Lymphocytes # (Manual) Monocytes # (Manual) PT INR ABG pH 7.525 H POC ABG pCO2 28.9 L POC ABG pO2 64.3 L ABG pO2 ABG HCO3 ABG O2 Saturation ABG Base Excess ABG Hemoglobin 8.2 L ABG Oxyhemoglobin ABG Sodium ABG Potassium 3.3 L ABG Chloride 115.0 H ABG Glucose 165 H Oxyhemoglobin Carboxyhemoglobin Sodium Potassium Chloride Carbon Dioxide BUN Creatinine Glucose POC Glucose 144 H 155 H Lactic Acid Calcium Phosphorus Magnesium Total Creatine Kinase Troponin T Total Protein Albumin Triglycerides LDL Cholesterol Direct HDL Cholesterol Arterial Blood Glucose 165 H Arterial Blood Ionized Calcium 4.0 L Urine pH Urine WBC (Auto) Vancomycin Trough Salicylates Acetaminophen Crossmatch 11/05/20 11/05/20 11/05/20 04:48 04:48 05:57 WBC 17.4 H RBC 2.49 L Hgb 7.8 L Hct 23.5 L MCV MCH MCHC RDW 16.0 H Plt Count 69 L Lymph % (Auto) Seg Neutrophils % Seg Neuts % (Manual) Lymphocytes % (Manual) Nucleated RBC % Seg Neutrophils # Seg Neutrophils # Man Lymphocytes # (Manual) Monocytes # (Manual) PT INR ABG pH POC ABG pCO2 POC ABG pO2 ABG pO2 ABG HCO3 ABG O2 Saturation ABG Base Excess ABG Hemoglobin ABG Oxyhemoglobin ABG Sodium ABG Potassium ABG Chloride ABG Glucose Oxyhemoglobin Carboxyhemoglobin Sodium 147 H Potassium 3.5 L Chloride 115.4 H Carbon Dioxide BUN 34 H Creatinine 0.3 L Glucose 154 H POC Glucose 146 H Lactic Acid Calcium 6.1 L Phosphorus 2.00 L Magnesium Total Creatine Kinase Troponin T Total Protein Albumin Triglycerides LDL Cholesterol Direct HDL Cholesterol Arterial Blood Glucose Arterial Blood Ionized Calcium Urine pH Urine WBC (Auto) Vancomycin Trough Salicylates Acetaminophen Crossmatch 11/05/20 11/05/20 11/05/20 11:33 17:52 23:37 WBC RBC Hgb Hct MCV MCH MCHC RDW Plt Count Lymph % (Auto) Seg Neutrophils % Seg Neuts % (Manual) Lymphocytes % (Manual) Nucleated RBC % Seg Neutrophils # Seg Neutrophils # Man Lymphocytes # (Manual) Monocytes # (Manual) PT INR ABG pH POC ABG pCO2 POC ABG pO2 ABG pO2 ABG HCO3 ABG O2 Saturation ABG Base Excess ABG Hemoglobin ABG Oxyhemoglobin ABG Sodium ABG Potassium ABG Chloride ABG Glucose Oxyhemoglobin Carboxyhemoglobin Sodium Potassium Chloride Carbon Dioxide BUN Creatinine Glucose POC Glucose 144 H 136 H 151 H Lactic Acid Calcium Phosphorus Magnesium Total Creatine Kinase Troponin T Total Protein Albumin Triglycerides LDL Cholesterol Direct HDL Cholesterol Arterial Blood Glucose Arterial Blood Ionized Calcium Urine pH Urine WBC (Auto) Vancomycin Trough Salicylates Acetaminophen Crossmatch 11/06/20 11/06/20 11/06/20 05:36 06:45 06:45 WBC 15.0 H RBC 2.33 L Hgb 7.2 L Hct 22.1 L MCV 95 H MCH MCHC RDW 16.2 H Plt Count 103 L Lymph % (Auto) Seg Neutrophils % Seg Neuts % (Manual) Lymphocytes % (Manual) Nucleated RBC % Seg Neutrophils # Seg Neutrophils # Man Lymphocytes # (Manual) Monocytes # (Manual) PT INR ABG pH POC ABG pCO2 POC ABG pO2 ABG pO2 ABG HCO3 ABG O2 Saturation ABG Base Excess ABG Hemoglobin ABG Oxyhemoglobin ABG Sodium ABG Potassium ABG Chloride ABG Glucose Oxyhemoglobin Carboxyhemoglobin Sodium 148 H Potassium Chloride 118.2 H Carbon Dioxide BUN 32 H Creatinine 0.4 L Glucose 153 H POC Glucose 140 H Lactic Acid Calcium 6.4 L Phosphorus 0.90 L* D Magnesium Total Creatine Kinase Troponin T Total Protein 5.0 L Albumin 1.4 L Triglycerides LDL Cholesterol Direct HDL Cholesterol Arterial Blood Glucose Arterial Blood Ionized Calcium Urine pH Urine WBC (Auto) Vancomycin Trough Salicylates Acetaminophen Crossmatch 11/06/20 11/06/20 11/06/20 11:32 17:37 23:19 WBC RBC Hgb Hct MCV MCH MCHC RDW Plt Count Lymph % (Auto) Seg Neutrophils % Seg Neuts % (Manual) Lymphocytes % (Manual) Nucleated RBC % Seg Neutrophils # Seg Neutrophils # Man Lymphocytes # (Manual) Monocytes # (Manual) PT INR ABG pH POC ABG pCO2 POC ABG pO2 ABG pO2 ABG HCO3 ABG O2 Saturation ABG Base Excess ABG Hemoglobin ABG Oxyhemoglobin ABG Sodium ABG Potassium ABG Chloride ABG Glucose Oxyhemoglobin Carboxyhemoglobin Sodium Potassium Chloride Carbon Dioxide BUN Creatinine Glucose POC Glucose 132 H 133 H 145 H Lactic Acid Calcium Phosphorus Magnesium Total Creatine Kinase Troponin T Total Protein Albumin Triglycerides LDL Cholesterol Direct HDL Cholesterol Arterial Blood Glucose Arterial Blood Ionized Calcium Urine pH Urine WBC (Auto) Vancomycin Trough Salicylates Acetaminophen Crossmatch 11/07/20 11/07/20 11/07/20 12:55 16:45 16:45 WBC 12.0 H RBC 3.63 L Hgb 11.4 L D Hct MCV 104 H MCH MCHC 30 L RDW 18.0 H Plt Count 133 L Lymph % (Auto) Seg Neutrophils % Seg Neuts % (Manual) Lymphocytes % (Manual) Nucleated RBC % Seg Neutrophils # Seg Neutrophils # Man Lymphocytes # (Manual) Monocytes # (Manual) PT INR ABG pH POC ABG pCO2 POC ABG pO2 ABG pO2 ABG HCO3 ABG O2 Saturation ABG Base Excess ABG Hemoglobin 7.7 L ABG Oxyhemoglobin ABG Sodium ABG Potassium ABG Chloride ABG Glucose Oxyhemoglobin 94.9 L Carboxyhemoglobin Sodium 149 H Potassium Chloride 119.8 H Carbon Dioxide BUN 31 H Creatinine 0.4 L Glucose 130 H POC Glucose Lactic Acid Calcium 6.5 L Phosphorus Magnesium Total Creatine Kinase Troponin T Total Protein Albumin Triglycerides LDL Cholesterol Direct HDL Cholesterol Arterial Blood Glucose Arterial Blood Ionized Calcium Urine pH Urine WBC (Auto) Vancomycin Trough Salicylates Acetaminophen Crossmatch 11/07/20 11/08/20 11/08/20 17:23 00:12 06:11 WBC RBC Hgb Hct MCV MCH MCHC RDW Plt Count Lymph % (Auto) Seg Neutrophils % Seg Neuts % (Manual) Lymphocytes % (Manual) Nucleated RBC % Seg Neutrophils # Seg Neutrophils # Man Lymphocytes # (Manual) Monocytes # (Manual) PT INR ABG pH POC ABG pCO2 POC ABG pO2 ABG pO2 ABG HCO3 ABG O2 Saturation ABG Base Excess ABG Hemoglobin ABG Oxyhemoglobin ABG Sodium ABG Potassium ABG Chloride ABG Glucose Oxyhemoglobin Carboxyhemoglobin Sodium Potassium Chloride Carbon Dioxide BUN Creatinine Glucose POC Glucose 115 H 129 H 109 H Lactic Acid Calcium Phosphorus Magnesium Total Creatine Kinase Troponin T Total Protein Albumin Triglycerides LDL Cholesterol Direct HDL Cholesterol Arterial Blood Glucose Arterial Blood Ionized Calcium Urine pH Urine WBC (Auto) Vancomycin Trough Salicylates Acetaminophen Crossmatch 11/08/20 11/08/20 11/08/20 17:36 23:49 23:58 WBC RBC Hgb Hct MCV MCH MCHC RDW Plt Count Lymph % (Auto) Seg Neutrophils % Seg Neuts % (Manual) Lymphocytes % (Manual) Nucleated RBC % Seg Neutrophils # Seg Neutrophils # Man Lymphocytes # (Manual) Monocytes # (Manual) PT INR ABG pH POC ABG pCO2 POC ABG pO2 ABG pO2 ABG HCO3 ABG O2 Saturation ABG Base Excess ABG Hemoglobin ABG Oxyhemoglobin ABG Sodium ABG Potassium ABG Chloride ABG Glucose Oxyhemoglobin Carboxyhemoglobin Sodium Potassium Chloride Carbon Dioxide BUN Creatinine Glucose 138 H POC Glucose 38 L 36 L Lactic Acid Calcium Phosphorus Magnesium Total Creatine Kinase Troponin T Total Protein Albumin Triglycerides LDL Cholesterol Direct HDL Cholesterol Arterial Blood Glucose Arterial Blood Ionized Calcium Urine pH Urine WBC (Auto) Vancomycin Trough Salicylates Acetaminophen Crossmatch 11/09/20 11/09/20 11/09/20 05:33 06:00 06:00 WBC 13.1 H RBC 2.35 L Hgb 7.6 L D Hct 22.9 L D MCV 97 H MCH MCHC RDW 16.8 H Plt Count Lymph % (Auto) 9.1 L Seg Neutrophils % 84.8 H Seg Neuts % (Manual) Lymphocytes % (Manual) Nucleated RBC % Seg Neutrophils # 11.1 H Seg Neutrophils # Man Lymphocytes # (Manual) Monocytes # (Manual) PT INR ABG pH POC ABG pCO2 POC ABG pO2 ABG pO2 ABG HCO3 ABG O2 Saturation ABG Base Excess ABG Hemoglobin ABG Oxyhemoglobin ABG Sodium ABG Potassium ABG Chloride ABG Glucose Oxyhemoglobin Carboxyhemoglobin Sodium 150 H Potassium 3.4 L D Chloride 119.2 H Carbon Dioxide BUN 30 H Creatinine 0.4 L Glucose 137 H POC Glucose 58 L Lactic Acid Calcium 7.2 L Phosphorus Magnesium Total Creatine Kinase Troponin T Total Protein Albumin Triglycerides LDL Cholesterol Direct HDL Cholesterol Arterial Blood Glucose Arterial Blood Ionized Calcium Urine pH Urine WBC (Auto) Vancomycin Trough Salicylates Acetaminophen Crossmatch 11/09/20 11/09/20 11/10/20 06:08 22:16 13:46 WBC 16.1 H RBC 2.52 L Hgb 8.1 L Hct 25.2 L MCV 100 H MCH MCHC RDW 18.2 H Plt Count Lymph % (Auto) Seg Neutrophils % Seg Neuts % (Manual) 90.0 H Lymphocytes % (Manual) 3.0 L Nucleated RBC % Seg Neutrophils # Seg Neutrophils # Man 14.5 H Lymphocytes # (Manual) 0.5 L Monocytes # (Manual) 1.1 H PT INR ABG pH POC ABG pCO2 POC ABG pO2 ABG pO2 ABG HCO3 ABG O2 Saturation ABG Base Excess ABG Hemoglobin ABG Oxyhemoglobin ABG Sodium ABG Potassium ABG Chloride ABG Glucose Oxyhemoglobin Carboxyhemoglobin Sodium Potassium Chloride Carbon Dioxide BUN Creatinine Glucose POC Glucose 122 H 120 H Lactic Acid Calcium Phosphorus Magnesium Total Creatine Kinase Troponin T Total Protein Albumin Triglycerides LDL Cholesterol Direct HDL Cholesterol Arterial Blood Glucose Arterial Blood Ionized Calcium Urine pH Urine WBC (Auto) Vancomycin Trough Salicylates Acetaminophen Crossmatch 11/10/20 11/10/20 11/11/20 13:46 15:59 11:43 WBC RBC Hgb Hct MCV MCH MCHC RDW Plt Count Lymph % (Auto) Seg Neutrophils % Seg Neuts % (Manual) Lymphocytes % (Manual) Nucleated RBC % Seg Neutrophils # Seg Neutrophils # Man Lymphocytes # (Manual) Monocytes # (Manual) PT INR ABG pH POC ABG pCO2 POC ABG pO2 ABG pO2 ABG HCO3 ABG O2 Saturation ABG Base Excess ABG Hemoglobin ABG Oxyhemoglobin ABG Sodium ABG Potassium ABG Chloride ABG Glucose Oxyhemoglobin Carboxyhemoglobin Sodium 153 H Potassium Chloride 120.6 H Carbon Dioxide BUN 27 H Creatinine 0.3 L Glucose 112 H POC Glucose 40 L 124 H Lactic Acid Calcium 6.8 L Phosphorus Magnesium Total Creatine Kinase Troponin T Total Protein Albumin Triglycerides LDL Cholesterol Direct HDL Cholesterol Arterial Blood Glucose Arterial Blood Ionized Calcium Urine pH Urine WBC (Auto) Vancomycin Trough Salicylates Acetaminophen Crossmatch 11/11/20 11/11/20 11/11/20 14:38 14:38 14:38 WBC 13.8 H RBC 2.43 L Hgb 7.6 L Hct 24.0 L MCV 99 H MCH MCHC RDW 18.0 H Plt Count Lymph % (Auto) Seg Neutrophils % Seg Neuts % (Manual) Lymphocytes % (Manual) Nucleated RBC % Seg Neutrophils # Seg Neutrophils # Man Lymphocytes # (Manual) Monocytes # (Manual) PT 15.0 H INR 1.18 H ABG pH POC ABG pCO2 POC ABG pO2 ABG pO2 ABG HCO3 ABG O2 Saturation ABG Base Excess ABG Hemoglobin ABG Oxyhemoglobin ABG Sodium ABG Potassium ABG Chloride ABG Glucose Oxyhemoglobin Carboxyhemoglobin Sodium 154 H Potassium 3.1 L D Chloride 122.1 H Carbon Dioxide BUN 26 H Creatinine 0.4 L Glucose 140 H POC Glucose Lactic Acid Calcium 7.3 L Phosphorus Magnesium Total Creatine Kinase Troponin T Total Protein Albumin Triglycerides LDL Cholesterol Direct HDL Cholesterol Arterial Blood Glucose Arterial Blood Ionized Calcium Urine pH Urine WBC (Auto) Vancomycin Trough Salicylates Acetaminophen Crossmatch 11/11/20 11/11/20 11/12/20 18:39 18:42 00:03 WBC RBC Hgb Hct MCV MCH MCHC RDW Plt Count Lymph % (Auto) Seg Neutrophils % Seg Neuts % (Manual) Lymphocytes % (Manual) Nucleated RBC % Seg Neutrophils # Seg Neutrophils # Man Lymphocytes # (Manual) Monocytes # (Manual) PT INR ABG pH POC ABG pCO2 POC ABG pO2 ABG pO2 ABG HCO3 ABG O2 Saturation ABG Base Excess ABG Hemoglobin ABG Oxyhemoglobin ABG Sodium ABG Potassium ABG Chloride ABG Glucose Oxyhemoglobin Carboxyhemoglobin Sodium Potassium Chloride Carbon Dioxide BUN Creatinine Glucose POC Glucose 45 L 66 L 108 H Lactic Acid Calcium Phosphorus Magnesium Total Creatine Kinase Troponin T Total Protein Albumin Triglycerides LDL Cholesterol Direct HDL Cholesterol Arterial Blood Glucose Arterial Blood Ionized Calcium Urine pH Urine WBC (Auto) Vancomycin Trough Salicylates Acetaminophen Crossmatch 11/12/20 11/12/20 11/12/20 05:44 08:33 08:33 WBC 13.4 H RBC 2.35 L Hgb 7.5 L Hct 23.7 L MCV 101 H MCH MCHC RDW 19.7 H Plt Count Lymph % (Auto) Seg Neutrophils % Seg Neuts % (Manual) Lymphocytes % (Manual) Nucleated RBC % Seg Neutrophils # Seg Neutrophils # Man Lymphocytes # (Manual) Monocytes # (Manual) PT INR ABG pH POC ABG pCO2 POC ABG pO2 ABG pO2 ABG HCO3 ABG O2 Saturation ABG Base Excess ABG Hemoglobin ABG Oxyhemoglobin ABG Sodium ABG Potassium ABG Chloride ABG Glucose Oxyhemoglobin Carboxyhemoglobin Sodium 154 H Potassium 2.9 L* Chloride 121.4 H Carbon Dioxide BUN 26 H Creatinine 0.4 L Glucose 153 H POC Glucose 114 H Lactic Acid Calcium 7.3 L Phosphorus Magnesium Total Creatine Kinase Troponin T Total Protein Albumin Triglycerides LDL Cholesterol Direct HDL Cholesterol Arterial Blood Glucose Arterial Blood Ionized Calcium Urine pH Urine WBC (Auto) Vancomycin Trough Salicylates Acetaminophen Crossmatch 11/12/20 11/12/20 11/13/20 11:38 17:17 05:28 WBC RBC Hgb Hct MCV MCH MCHC RDW Plt Count Lymph % (Auto) Seg Neutrophils % Seg Neuts % (Manual) Lymphocytes % (Manual) Nucleated RBC % Seg Neutrophils # Seg Neutrophils # Man Lymphocytes # (Manual) Monocytes # (Manual) PT INR ABG pH POC ABG pCO2 51.4 H POC ABG pO2 41.7 L ABG pO2 ABG HCO3 ABG O2 Saturation ABG Base Excess ABG Hemoglobin 9.1 L ABG Oxyhemoglobin 72.2 L ABG Sodium 151.1 H ABG Potassium 3.2 L ABG Chloride 122.0 H ABG Glucose 191 H Oxyhemoglobin Carboxyhemoglobin Sodium Potassium Chloride Carbon Dioxide BUN Creatinine Glucose POC Glucose 125 H 127 H Lactic Acid Calcium Phosphorus Magnesium Total Creatine Kinase Troponin T Total Protein Albumin Triglycerides LDL Cholesterol Direct HDL Cholesterol Arterial Blood Glucose 191 H Arterial Blood Ionized Calcium Urine pH Urine WBC (Auto) Vancomycin Trough Salicylates Acetaminophen Crossmatch 11/13/20 11/13/20 11/13/20 10:46 23:15 23:15 WBC 12.2 H RBC 2.41 L Hgb 7.7 L Hct 24.5 L MCV 102 H MCH MCHC RDW 23.0 H Plt Count Lymph % (Auto) Seg Neutrophils % Seg Neuts % (Manual) Lymphocytes % (Manual) Nucleated RBC % Seg Neutrophils # Seg Neutrophils # Man Lymphocytes # (Manual) Monocytes # (Manual) PT INR ABG pH POC ABG pCO2 POC ABG pO2 ABG pO2 ABG HCO3 ABG O2 Saturation ABG Base Excess ABG Hemoglobin ABG Oxyhemoglobin ABG Sodium ABG Potassium ABG Chloride ABG Glucose Oxyhemoglobin Carboxyhemoglobin Sodium Potassium Chloride Carbon Dioxide BUN Creatinine Glucose POC Glucose 153 H Lactic Acid Calcium Phosphorus Magnesium Total Creatine Kinase Troponin T 0.123 H* Total Protein Albumin Triglycerides LDL Cholesterol Direct HDL Cholesterol Arterial Blood Glucose Arterial Blood Ionized Calcium Urine pH Urine WBC (Auto) Vancomycin Trough Salicylates Acetaminophen Crossmatch 11/13/20 11/13/20 11/14/20 23:15 Unknown 05:26 WBC RBC Hgb Hct MCV MCH MCHC RDW Plt Count Lymph % (Auto) Seg Neutrophils % Seg Neuts % (Manual) Lymphocytes % (Manual) Nucleated RBC % Seg Neutrophils # Seg Neutrophils # Man Lymphocytes # (Manual) Monocytes # (Manual) PT INR ABG pH 7.295 L POC ABG pCO2 56.0 H POC ABG pO2 49.1 L ABG pO2 ABG HCO3 ABG O2 Saturation ABG Base Excess ABG Hemoglobin 8.3 L ABG Oxyhemoglobin 77.1 L ABG Sodium 150.5 H ABG Potassium 3.3 L ABG Chloride 121.0 H ABG Glucose 187 H Oxyhemoglobin Carboxyhemoglobin Sodium 152 H Potassium 3.3 L Chloride 117.8 H Carbon Dioxide BUN 25 H Creatinine 0.4 L Glucose 123 H POC Glucose 46 L Lactic Acid Calcium 7.5 L Phosphorus Magnesium Total Creatine Kinase Troponin T Total Protein Albumin Triglycerides LDL Cholesterol Direct HDL Cholesterol Arterial Blood Glucose 187 H Arterial Blood Ionized Calcium Urine pH Urine WBC (Auto) Vancomycin Trough Salicylates Acetaminophen Crossmatch 11/14/20 11/14/20 11/14/20 06:26 22:26 22:26 WBC RBC 2.75 L Hgb 9.0 L Hct 27.8 L MCV 101 H MCH 33 H MCHC RDW 22.8 H Plt Count Lymph % (Auto) Seg Neutrophils % Seg Neuts % (Manual) Lymphocytes % (Manual) Nucleated RBC % Seg Neutrophils # Seg Neutrophils # Man Lymphocytes # (Manual) Monocytes # (Manual) PT INR ABG pH POC ABG pCO2 POC ABG pO2 ABG pO2 ABG HCO3 ABG O2 Saturation ABG Base Excess ABG Hemoglobin ABG Oxyhemoglobin ABG Sodium ABG Potassium ABG Chloride ABG Glucose Oxyhemoglobin Carboxyhemoglobin Sodium 147 H Potassium 3.3 L Chloride 114.3 H Carbon Dioxide BUN 23 H Creatinine 0.3 L Glucose 209 H POC Glucose 135 H Lactic Acid Calcium 7.4 L Phosphorus Magnesium Total Creatine Kinase Troponin T Total Protein Albumin Triglycerides LDL Cholesterol Direct HDL Cholesterol Arterial Blood Glucose Arterial Blood Ionized Calcium Urine pH Urine WBC (Auto) Vancomycin Trough Salicylates Acetaminophen Crossmatch 11/14/20 11/15/20 11/15/20 23:22 04:28 05:57 WBC RBC Hgb Hct MCV MCH MCHC RDW Plt Count Lymph % (Auto) Seg Neutrophils % Seg Neuts % (Manual) Lymphocytes % (Manual) Nucleated RBC % Seg Neutrophils # Seg Neutrophils # Man Lymphocytes # (Manual) Monocytes # (Manual) PT INR ABG pH POC ABG pCO2 POC ABG pO2 ABG pO2 ABG HCO3 ABG O2 Saturation ABG Base Excess ABG Hemoglobin ABG Oxyhemoglobin ABG Sodium ABG Potassium ABG Chloride ABG Glucose Oxyhemoglobin Carboxyhemoglobin Sodium 152 H Potassium Chloride 118.1 H Carbon Dioxide BUN 22 H Creatinine 0.3 L Glucose 190 H POC Glucose 136 H 151 H Lactic Acid Calcium 7.5 L Phosphorus Magnesium Total Creatine Kinase Troponin T Total Protein Albumin Triglycerides LDL Cholesterol Direct HDL Cholesterol Arterial Blood Glucose Arterial Blood Ionized Calcium Urine pH Urine WBC (Auto) Vancomycin Trough Salicylates Acetaminophen Crossmatch 11/15/20 11/15/20 11/15/20 11:40 16:56 21:53 WBC RBC Hgb Hct MCV MCH MCHC RDW Plt Count Lymph % (Auto) Seg Neutrophils % Seg Neuts % (Manual) Lymphocytes % (Manual) Nucleated RBC % Seg Neutrophils # Seg Neutrophils # Man Lymphocytes # (Manual) Monocytes # (Manual) PT INR ABG pH 7.457 H POC ABG pCO2 POC ABG pO2 ABG pO2 48.3 L ABG HCO3 26.1 H ABG O2 Saturation 82.9 L ABG Base Excess ABG Hemoglobin 9.7 L ABG Oxyhemoglobin ABG Sodium ABG Potassium ABG Chloride ABG Glucose Oxyhemoglobin 81.0 L Carboxyhemoglobin Sodium Potassium Chloride Carbon Dioxide BUN Creatinine Glucose POC Glucose 129 H 115 H Lactic Acid Calcium Phosphorus Magnesium Total Creatine Kinase Troponin T Total Protein Albumin Triglycerides LDL Cholesterol Direct HDL Cholesterol Arterial Blood Glucose Arterial Blood Ionized Calcium Urine pH Urine WBC (Auto) Vancomycin Trough Salicylates Acetaminophen Crossmatch 11/15/20 11/16/20 11/16/20 23:12 00:07 00:09 WBC RBC Hgb Hct MCV MCH MCHC RDW Plt Count Lymph % (Auto) Seg Neutrophils % Seg Neuts % (Manual) Lymphocytes % (Manual) Nucleated RBC % Seg Neutrophils # Seg Neutrophils # Man Lymphocytes # (Manual) Monocytes # (Manual) PT INR ABG pH POC ABG pCO2 POC ABG pO2 ABG pO2 95.1 H ABG HCO3 26.6 H ABG O2 Saturation ABG Base Excess ABG Hemoglobin 7.5 L ABG Oxyhemoglobin ABG Sodium ABG Potassium ABG Chloride ABG Glucose Oxyhemoglobin Carboxyhemoglobin Sodium Potassium Chloride Carbon Dioxide BUN Creatinine Glucose POC Glucose 13 L 153 H Lactic Acid Calcium Phosphorus Magnesium Total Creatine Kinase Troponin T Total Protein Albumin Triglycerides LDL Cholesterol Direct HDL Cholesterol Arterial Blood Glucose Arterial Blood Ionized Calcium Urine pH Urine WBC (Auto) Vancomycin Trough Salicylates Acetaminophen Crossmatch 11/16/20 11/16/20 11/16/20 03:43 04:00 04:00 WBC RBC 2.33 L Hgb 7.7 L Hct 24.5 L MCV 105 H MCH 33 H MCHC 31 L RDW 22.9 H Plt Count Lymph % (Auto) Seg Neutrophils % Seg Neuts % (Manual) Lymphocytes % (Manual) Nucleated RBC % Seg Neutrophils # Seg Neutrophils # Man Lymphocytes # (Manual) Monocytes # (Manual) PT INR ABG pH 7.348 L POC ABG pCO2 POC ABG pO2 ABG pO2 91.6 H ABG HCO3 26.3 H ABG O2 Saturation ABG Base Excess ABG Hemoglobin 7.3 L ABG Oxyhemoglobin ABG Sodium ABG Potassium ABG Chloride ABG Glucose Oxyhemoglobin Carboxyhemoglobin Sodium 148 H Potassium 3.5 L Chloride 115.9 H Carbon Dioxide BUN Creatinine 0.4 L Glucose 195 H POC Glucose Lactic Acid Calcium 7.6 L Phosphorus Magnesium Total Creatine Kinase Troponin T Total Protein Albumin Triglycerides LDL Cholesterol Direct HDL Cholesterol Arterial Blood Glucose Arterial Blood Ionized Calcium Urine pH Urine WBC (Auto) Vancomycin Trough Salicylates Acetaminophen Crossmatch 11/16/20 11/16/20 11/16/20 05:16 07:40 12:10 WBC RBC Hgb Hct MCV MCH MCHC RDW Plt Count Lymph % (Auto) Seg Neutrophils % Seg Neuts % (Manual) Lymphocytes % (Manual) Nucleated RBC % Seg Neutrophils # Seg Neutrophils # Man Lymphocytes # (Manual) Monocytes # (Manual) PT INR ABG pH POC ABG pCO2 POC ABG pO2 ABG pO2 ABG HCO3 ABG O2 Saturation ABG Base Excess ABG Hemoglobin ABG Oxyhemoglobin ABG Sodium ABG Potassium ABG Chloride ABG Glucose Oxyhemoglobin Carboxyhemoglobin Sodium Potassium Chloride Carbon Dioxide BUN Creatinine Glucose POC Glucose 61 L 122 H 140 H Lactic Acid Calcium Phosphorus Magnesium Total Creatine Kinase Troponin T Total Protein Albumin Triglycerides LDL Cholesterol Direct HDL Cholesterol Arterial Blood Glucose Arterial Blood Ionized Calcium Urine pH Urine WBC (Auto) Vancomycin Trough Salicylates Acetaminophen Crossmatch 11/16/20 11/16/20 11/17/20 17:14 23:40 04:30 WBC RBC Hgb Hct MCV MCH MCHC RDW Plt Count Lymph % (Auto) Seg Neutrophils % Seg Neuts % (Manual) Lymphocytes % (Manual) Nucleated RBC % Seg Neutrophils # Seg Neutrophils # Man Lymphocytes # (Manual) Monocytes # (Manual) PT INR ABG pH 7.470 H POC ABG pCO2 POC ABG pO2 75.4 L ABG pO2 ABG HCO3 ABG O2 Saturation ABG Base Excess ABG Hemoglobin 7 L ABG Oxyhemoglobin ABG Sodium ABG Potassium ABG Chloride 116.0 H ABG Glucose 161 H Oxyhemoglobin Carboxyhemoglobin Sodium Potassium Chloride Carbon Dioxide BUN Creatinine Glucose POC Glucose 139 H 151 H Lactic Acid Calcium Phosphorus Magnesium Total Creatine Kinase Troponin T Total Protein Albumin Triglycerides LDL Cholesterol Direct HDL Cholesterol Arterial Blood Glucose 161 H Arterial Blood Ionized Calcium Urine pH Urine WBC (Auto) Vancomycin Trough Salicylates Acetaminophen Crossmatch 11/17/20 11/17/20 11/17/20 09:50 09:50 11:10 WBC RBC 2.02 L Hgb 6.6 L Hct 20.2 L MCV 100 H MCH 33 H MCHC RDW 22.4 H Plt Count Lymph % (Auto) Seg Neutrophils % Seg Neuts % (Manual) Lymphocytes % (Manual) Nucleated RBC % Seg Neutrophils # Seg Neutrophils # Man Lymphocytes # (Manual) Monocytes # (Manual) PT INR ABG pH POC ABG pCO2 POC ABG pO2 ABG pO2 ABG HCO3 ABG O2 Saturation ABG Base Excess ABG Hemoglobin ABG Oxyhemoglobin ABG Sodium ABG Potassium ABG Chloride ABG Glucose Oxyhemoglobin Carboxyhemoglobin Sodium Potassium Chloride 111.8 H Carbon Dioxide BUN 23 H Creatinine 0.4 L Glucose 142 H POC Glucose Lactic Acid Calcium 7.3 L Phosphorus Magnesium Total Creatine Kinase Troponin T Total Protein Albumin Triglycerides LDL Cholesterol Direct HDL Cholesterol Arterial Blood Glucose Arterial Blood Ionized Calcium Urine pH Urine WBC (Auto) Vancomycin Trough Salicylates Acetaminophen Crossmatch See Detail 11/17/20 11/17/20 11/17/20 11:52 11:57 23:22 WBC RBC Hgb Hct MCV MCH MCHC RDW Plt Count Lymph % (Auto) Seg Neutrophils % Seg Neuts % (Manual) Lymphocytes % (Manual) Nucleated RBC % Seg Neutrophils # Seg Neutrophils # Man Lymphocytes # (Manual) Monocytes # (Manual) PT INR ABG pH POC ABG pCO2 POC ABG pO2 ABG pO2 ABG HCO3 ABG O2 Saturation ABG Base Excess ABG Hemoglobin ABG Oxyhemoglobin ABG Sodium ABG Potassium ABG Chloride ABG Glucose Oxyhemoglobin Carboxyhemoglobin Sodium Potassium Chloride Carbon Dioxide BUN Creatinine Glucose POC Glucose 42 L 114 H 63 L Lactic Acid Calcium Phosphorus Magnesium Total Creatine Kinase Troponin T Total Protein Albumin Triglycerides LDL Cholesterol Direct HDL Cholesterol Arterial Blood Glucose Arterial Blood Ionized Calcium Urine pH Urine WBC (Auto) Vancomycin Trough Salicylates Acetaminophen Crossmatch 11/17/20 11/18/20 11/18/20 23:27 04:06 04:45 WBC RBC 2.36 L Hgb 7.4 L Hct 23.4 L MCV 99 H MCH MCHC RDW 21.6 H Plt Count Lymph % (Auto) Seg Neutrophils % Seg Neuts % (Manual) Lymphocytes % (Manual) Nucleated RBC % Seg Neutrophils # Seg Neutrophils # Man Lymphocytes # (Manual) Monocytes # (Manual) PT INR ABG pH POC ABG pCO2 POC ABG pO2 67.7 L ABG pO2 ABG HCO3 ABG O2 Saturation ABG Base Excess ABG Hemoglobin 8.3 L ABG Oxyhemoglobin ABG Sodium ABG Potassium ABG Chloride 112.0 H ABG Glucose 143 H Oxyhemoglobin Carboxyhemoglobin Sodium Potassium Chloride Carbon Dioxide BUN Creatinine Glucose POC Glucose 124 H Lactic Acid Calcium Phosphorus Magnesium Total Creatine Kinase Troponin T Total Protein Albumin Triglycerides LDL Cholesterol Direct HDL Cholesterol Arterial Blood Glucose 143 H Arterial Blood Ionized Calcium 4.5 L Urine pH Urine WBC (Auto) Vancomycin Trough Salicylates Acetaminophen Crossmatch 11/18/20 11/18/20 11/18/20 04:45 05:56 23:46 WBC RBC Hgb Hct MCV MCH MCHC RDW Plt Count Lymph % (Auto) Seg Neutrophils % Seg Neuts % (Manual) Lymphocytes % (Manual) Nucleated RBC % Seg Neutrophils # Seg Neutrophils # Man Lymphocytes # (Manual) Monocytes # (Manual) PT INR ABG pH POC ABG pCO2 POC ABG pO2 ABG pO2 ABG HCO3 ABG O2 Saturation ABG Base Excess ABG Hemoglobin ABG Oxyhemoglobin ABG Sodium ABG Potassium ABG Chloride ABG Glucose Oxyhemoglobin Carboxyhemoglobin Sodium Potassium Chloride 107.9 H Carbon Dioxide BUN 23 H Creatinine 0.4 L Glucose 139 H POC Glucose 133 H 66 L Lactic Acid Calcium 7.6 L Phosphorus Magnesium Total Creatine Kinase Troponin T Total Protein Albumin Triglycerides LDL Cholesterol Direct HDL Cholesterol Arterial Blood Glucose Arterial Blood Ionized Calcium Urine pH Urine WBC (Auto) Vancomycin Trough Salicylates Acetaminophen Crossmatch 11/18/20 11/19/20 11/19/20 23:52 05:48 06:36 WBC RBC Hgb Hct MCV MCH MCHC RDW Plt Count Lymph % (Auto) Seg Neutrophils % Seg Neuts % (Manual) Lymphocytes % (Manual) Nucleated RBC % Seg Neutrophils # Seg Neutrophils # Man Lymphocytes # (Manual) Monocytes # (Manual) PT INR ABG pH POC ABG pCO2 POC ABG pO2 ABG pO2 ABG HCO3 ABG O2 Saturation ABG Base Excess ABG Hemoglobin ABG Oxyhemoglobin ABG Sodium ABG Potassium ABG Chloride ABG Glucose Oxyhemoglobin Carboxyhemoglobin Sodium Potassium Chloride Carbon Dioxide BUN 21 H Creatinine 0.4 L Glucose 119 H POC Glucose 118 H 108 H Lactic Acid Calcium 7.8 L Phosphorus Magnesium Total Creatine Kinase Troponin T Total Protein Albumin Triglycerides LDL Cholesterol Direct HDL Cholesterol Arterial Blood Glucose Arterial Blood Ionized Calcium Urine pH Urine WBC (Auto) Vancomycin Trough Salicylates Acetaminophen Crossmatch 11/19/20 11/19/20 11/19/20 06:36 06:36 18:15 WBC RBC 2.79 L Hgb 9.0 L Hct 27.8 L MCV 100 H MCH MCHC RDW 20.7 H Plt Count Lymph % (Auto) Seg Neutrophils % Seg Neuts % (Manual) Lymphocytes % (Manual) Nucleated RBC % Seg Neutrophils # Seg Neutrophils # Man Lymphocytes # (Manual) Monocytes # (Manual) PT INR 1.15 H ABG pH POC ABG pCO2 POC ABG pO2 ABG pO2 ABG HCO3 ABG O2 Saturation ABG Base Excess ABG Hemoglobin ABG Oxyhemoglobin ABG Sodium ABG Potassium ABG Chloride ABG Glucose Oxyhemoglobin Carboxyhemoglobin Sodium Potassium Chloride Carbon Dioxide BUN Creatinine Glucose POC Glucose 115 H Lactic Acid Calcium Phosphorus Magnesium Total Creatine Kinase Troponin T Total Protein Albumin Triglycerides LDL Cholesterol Direct HDL Cholesterol Arterial Blood Glucose Arterial Blood Ionized Calcium Urine pH Urine WBC (Auto) Vancomycin Trough Salicylates Acetaminophen Crossmatch 11/19/20 11/19/20 11/20/20 23:27 Unknown 04:56 WBC RBC Hgb Hct MCV MCH MCHC RDW Plt Count Lymph % (Auto) Seg Neutrophils % Seg Neuts % (Manual) Lymphocytes % (Manual) Nucleated RBC % Seg Neutrophils # Seg Neutrophils # Man Lymphocytes # (Manual) Monocytes # (Manual) PT INR ABG pH 7.457 H POC ABG pCO2 POC ABG pO2 57.4 L ABG pO2 72.4 L ABG HCO3 26.9 H ABG O2 Saturation ABG Base Excess ABG Hemoglobin 8.5 L 9.6 L ABG Oxyhemoglobin 90.1 L ABG Sodium ABG Potassium ABG Chloride 109.0 H ABG Glucose 142 H Oxyhemoglobin 94.1 L Carboxyhemoglobin Sodium Potassium Chloride Carbon Dioxide BUN Creatinine Glucose POC Glucose 129 H Lactic Acid Calcium Phosphorus Magnesium Total Creatine Kinase Troponin T Total Protein Albumin Triglycerides LDL Cholesterol Direct HDL Cholesterol Arterial Blood Glucose 142 H Arterial Blood Ionized Calcium Urine pH Urine WBC (Auto) Vancomycin Trough Salicylates Acetaminophen Crossmatch 11/20/20 11/20/20 11/20/20 05:07 05:45 05:45 WBC 11.7 H RBC 2.74 L Hgb 8.9 L Hct 26.3 L MCV 96 H MCH 33 H MCHC RDW 18.6 H Plt Count Lymph % (Auto) Seg Neutrophils % Seg Neuts % (Manual) Lymphocytes % (Manual) Nucleated RBC % Seg Neutrophils # Seg Neutrophils # Man Lymphocytes # (Manual) Monocytes # (Manual) PT INR ABG pH POC ABG pCO2 POC ABG pO2 ABG pO2 ABG HCO3 ABG O2 Saturation ABG Base Excess ABG Hemoglobin ABG Oxyhemoglobin ABG Sodium ABG Potassium ABG Chloride ABG Glucose Oxyhemoglobin Carboxyhemoglobin Sodium Potassium Chloride Carbon Dioxide 31 H BUN Creatinine 0.4 L Glucose 127 H POC Glucose 129 H Lactic Acid Calcium 8.0 L Phosphorus Magnesium Total Creatine Kinase Troponin T Total Protein Albumin Triglycerides LDL Cholesterol Direct HDL Cholesterol Arterial Blood Glucose Arterial Blood Ionized Calcium Urine pH Urine WBC (Auto) Vancomycin Trough Salicylates Acetaminophen Crossmatch 11/20/20 11/20/20 11/21/20 12:02 17:52 00:02 WBC RBC Hgb Hct MCV MCH MCHC RDW Plt Count Lymph % (Auto) Seg Neutrophils % Seg Neuts % (Manual) Lymphocytes % (Manual) Nucleated RBC % Seg Neutrophils # Seg Neutrophils # Man Lymphocytes # (Manual) Monocytes # (Manual) PT INR ABG pH POC ABG pCO2 POC ABG pO2 ABG pO2 ABG HCO3 ABG O2 Saturation ABG Base Excess ABG Hemoglobin ABG Oxyhemoglobin ABG Sodium ABG Potassium ABG Chloride ABG Glucose Oxyhemoglobin Carboxyhemoglobin Sodium Potassium Chloride Carbon Dioxide BUN Creatinine Glucose POC Glucose 134 H 115 H 116 H Lactic Acid Calcium Phosphorus Magnesium Total Creatine Kinase Troponin T Total Protein Albumin Triglycerides LDL Cholesterol Direct HDL Cholesterol Arterial Blood Glucose Arterial Blood Ionized Calcium Urine pH Urine WBC (Auto) Vancomycin Trough Salicylates Acetaminophen Crossmatch 11/21/20 11/21/20 11/21/20 03:23 04:00 05:14 WBC RBC Hgb Hct MCV MCH MCHC RDW Plt Count Lymph % (Auto) Seg Neutrophils % Seg Neuts % (Manual) Lymphocytes % (Manual) Nucleated RBC % Seg Neutrophils # Seg Neutrophils # Man Lymphocytes # (Manual) Monocytes # (Manual) PT INR ABG pH 7.479 H POC ABG pCO2 POC ABG pO2 73.7 L ABG pO2 ABG HCO3 ABG O2 Saturation ABG Base Excess ABG Hemoglobin 9.4 L ABG Oxyhemoglobin ABG Sodium ABG Potassium ABG Chloride 108.0 H ABG Glucose 135 H Oxyhemoglobin Carboxyhemoglobin Sodium Potassium Chloride Carbon Dioxide 34 H BUN Creatinine 0.4 L Glucose 125 H POC Glucose 116 H Lactic Acid Calcium 7.9 L Phosphorus Magnesium Total Creatine Kinase Troponin T Total Protein Albumin Triglycerides LDL Cholesterol Direct HDL Cholesterol Arterial Blood Glucose 135 H Arterial Blood Ionized Calcium 4.5 L Urine pH Urine WBC (Auto) Vancomycin Trough Salicylates Acetaminophen Crossmatch 11/22/20 11/22/20 11/22/20 04:00 04:00 05:34 WBC 12.2 H RBC 2.74 L Hgb 8.7 L Hct 27.4 L MCV 100 H MCH MCHC RDW 19.2 H Plt Count Lymph % (Auto) Seg Neutrophils % Seg Neuts % (Manual) Lymphocytes % (Manual) Nucleated RBC % Seg Neutrophils # Seg Neutrophils # Man Lymphocytes # (Manual) Monocytes # (Manual) PT INR ABG pH POC ABG pCO2 POC ABG pO2 ABG pO2 ABG HCO3 ABG O2 Saturation ABG Base Excess ABG Hemoglobin ABG Oxyhemoglobin ABG Sodium ABG Potassium ABG Chloride ABG Glucose Oxyhemoglobin Carboxyhemoglobin Sodium Potassium Chloride Carbon Dioxide BUN Creatinine 0.4 L Glucose POC Glucose 58 L Lactic Acid Calcium 7.7 L Phosphorus Magnesium Total Creatine Kinase Troponin T Total Protein Albumin Triglycerides LDL Cholesterol Direct HDL Cholesterol Arterial Blood Glucose Arterial Blood Ionized Calcium Urine pH Urine WBC (Auto) Vancomycin Trough Salicylates Acetaminophen Crossmatch 11/22/20 11/23/20 11/23/20 11:48 00:15 04:25 WBC RBC Hgb Hct MCV MCH MCHC RDW Plt Count Lymph % (Auto) Seg Neutrophils % Seg Neuts % (Manual) Lymphocytes % (Manual) Nucleated RBC % Seg Neutrophils # Seg Neutrophils # Man Lymphocytes # (Manual) Monocytes # (Manual) PT INR ABG pH 7.489 H POC ABG pCO2 POC ABG pO2 74.7 L ABG pO2 ABG HCO3 ABG O2 Saturation ABG Base Excess ABG Hemoglobin 9.6 L ABG Oxyhemoglobin ABG Sodium 135.6 L ABG Potassium ABG Chloride ABG Glucose 119 H Oxyhemoglobin Carboxyhemoglobin Sodium Potassium Chloride Carbon Dioxide BUN Creatinine Glucose POC Glucose 60 L 106 H Lactic Acid Calcium Phosphorus Magnesium Total Creatine Kinase Troponin T Total Protein Albumin Triglycerides LDL Cholesterol Direct HDL Cholesterol Arterial Blood Glucose 119 H Arterial Blood Ionized Calcium 4.4 L Urine pH Urine WBC (Auto) Vancomycin Trough Salicylates Acetaminophen Crossmatch 11/23/20 11/23/20 11/23/20 05:27 10:23 10:23 WBC 11.3 H RBC 2.58 L Hgb 8.4 L Hct 24.7 L MCV 96 H MCH MCHC RDW 18.2 H Plt Count Lymph % (Auto) Seg Neutrophils % Seg Neuts % (Manual) 94.0 H Lymphocytes % (Manual) 5.0 L Nucleated RBC % Seg Neutrophils # Seg Neutrophils # Man 10.6 H Lymphocytes # (Manual) 0.6 L Monocytes # (Manual) PT INR ABG pH POC ABG pCO2 POC ABG pO2 ABG pO2 ABG HCO3 ABG O2 Saturation ABG Base Excess ABG Hemoglobin ABG Oxyhemoglobin ABG Sodium ABG Potassium ABG Chloride ABG Glucose Oxyhemoglobin Carboxyhemoglobin Sodium Potassium Chloride Carbon Dioxide BUN Creatinine 0.4 L Glucose 101 H POC Glucose 121 H Lactic Acid Calcium 7.2 L Phosphorus Magnesium Total Creatine Kinase Troponin T Total Protein Albumin Triglycerides LDL Cholesterol Direct HDL Cholesterol Arterial Blood Glucose Arterial Blood Ionized Calcium Urine pH Urine WBC (Auto) Vancomycin Trough Salicylates Acetaminophen Crossmatch 11/23/20 11/23/20 11/24/20 11:53 23:19 05:31 WBC RBC Hgb Hct MCV MCH MCHC RDW Plt Count Lymph % (Auto) Seg Neutrophils % Seg Neuts % (Manual) Lymphocytes % (Manual) Nucleated RBC % Seg Neutrophils # Seg Neutrophils # Man Lymphocytes # (Manual) Monocytes # (Manual) PT INR ABG pH POC ABG pCO2 POC ABG pO2 ABG pO2 ABG HCO3 ABG O2 Saturation ABG Base Excess ABG Hemoglobin ABG Oxyhemoglobin ABG Sodium ABG Potassium ABG Chloride ABG Glucose Oxyhemoglobin Carboxyhemoglobin Sodium Potassium Chloride Carbon Dioxide BUN Creatinine Glucose POC Glucose 112 H 120 H 132 H Lactic Acid Calcium Phosphorus Magnesium Total Creatine Kinase Troponin T Total Protein Albumin Triglycerides LDL Cholesterol Direct HDL Cholesterol Arterial Blood Glucose Arterial Blood Ionized Calcium Urine pH Urine WBC (Auto) Vancomycin Trough Salicylates Acetaminophen Crossmatch 11/24/20 11/24/20 11/24/20 11:27 16:48 23:11 WBC RBC Hgb Hct MCV MCH MCHC RDW Plt Count Lymph % (Auto) Seg Neutrophils % Seg Neuts % (Manual) Lymphocytes % (Manual) Nucleated RBC % Seg Neutrophils # Seg Neutrophils # Man Lymphocytes # (Manual) Monocytes # (Manual) PT INR ABG pH POC ABG pCO2 POC ABG pO2 ABG pO2 ABG HCO3 ABG O2 Saturation ABG Base Excess ABG Hemoglobin ABG Oxyhemoglobin ABG Sodium ABG Potassium ABG Chloride ABG Glucose Oxyhemoglobin Carboxyhemoglobin Sodium Potassium Chloride Carbon Dioxide BUN Creatinine Glucose POC Glucose 137 H 128 H 114 H Lactic Acid Calcium Phosphorus Magnesium Total Creatine Kinase Troponin T Total Protein Albumin Triglycerides LDL Cholesterol Direct HDL Cholesterol Arterial Blood Glucose Arterial Blood Ionized Calcium Urine pH Urine WBC (Auto) Vancomycin Trough Salicylates Acetaminophen Crossmatch 11/25/20 11/25/20 11/25/20 05:06 11:20 11:31 WBC 19.0 H RBC 2.28 L Hgb 7.3 L Hct 22.5 L MCV 99 H MCH MCHC RDW 18.3 H Plt Count Lymph % (Auto) Seg Neutrophils % Seg Neuts % (Manual) Lymphocytes % (Manual) Nucleated RBC % Seg Neutrophils # Seg Neutrophils # Man Lymphocytes # (Manual) Monocytes # (Manual) PT INR ABG pH POC ABG pCO2 POC ABG pO2 ABG pO2 ABG HCO3 ABG O2 Saturation ABG Base Excess ABG Hemoglobin ABG Oxyhemoglobin ABG Sodium ABG Potassium ABG Chloride ABG Glucose Oxyhemoglobin Carboxyhemoglobin Sodium Potassium Chloride Carbon Dioxide BUN Creatinine Glucose POC Glucose 125 H 106 H Lactic Acid Calcium Phosphorus Magnesium Total Creatine Kinase Troponin T Total Protein Albumin Triglycerides LDL Cholesterol Direct HDL Cholesterol Arterial Blood Glucose Arterial Blood Ionized Calcium Urine pH Urine WBC (Auto) Vancomycin Trough Salicylates Acetaminophen Crossmatch 11/25/20 11/26/20 11/26/20 16:25 09:25 12:01 WBC 20.8 H RBC 2.82 L Hgb 8.7 L Hct 27.3 L MCV 97 H MCH MCHC RDW 17.9 H Plt Count Lymph % (Auto) Seg Neutrophils % Seg Neuts % (Manual) Lymphocytes % (Manual) Nucleated RBC % Seg Neutrophils # Seg Neutrophils # Man Lymphocytes # (Manual) Monocytes # (Manual) PT INR ABG pH 7.480 H POC ABG pCO2 POC ABG pO2 78.1 L ABG pO2 ABG HCO3 ABG O2 Saturation ABG Base Excess ABG Hemoglobin 8.5 L ABG Oxyhemoglobin ABG Sodium ABG Potassium ABG Chloride ABG Glucose 114 H Oxyhemoglobin Carboxyhemoglobin Sodium Potassium Chloride Carbon Dioxide BUN Creatinine Glucose POC Glucose 130 H Lactic Acid Calcium Phosphorus Magnesium Total Creatine Kinase Troponin T Total Protein Albumin Triglycerides LDL Cholesterol Direct HDL Cholesterol Arterial Blood Glucose 114 H Arterial Blood Ionized Calcium 4.5 L Urine pH Urine WBC (Auto) Vancomycin Trough Salicylates Acetaminophen Crossmatch 11/26/20 11/26/20 11/27/20 16:55 23:43 05:55 WBC 18.1 H RBC 2.48 L Hgb 7.8 L Hct 23.9 L MCV 97 H MCH MCHC RDW 17.7 H Plt Count Lymph % (Auto) Seg Neutrophils % Seg Neuts % (Manual) Lymphocytes % (Manual) Nucleated RBC % Seg Neutrophils # Seg Neutrophils # Man Lymphocytes # (Manual) Monocytes # (Manual) PT INR ABG pH POC ABG pCO2 POC ABG pO2 ABG pO2 ABG HCO3 ABG O2 Saturation ABG Base Excess ABG Hemoglobin ABG Oxyhemoglobin ABG Sodium ABG Potassium ABG Chloride ABG Glucose Oxyhemoglobin Carboxyhemoglobin Sodium Potassium Chloride Carbon Dioxide BUN Creatinine Glucose POC Glucose 123 H 110 H Lactic Acid Calcium Phosphorus Magnesium Total Creatine Kinase Troponin T Total Protein Albumin Triglycerides LDL Cholesterol Direct HDL Cholesterol Arterial Blood Glucose Arterial Blood Ionized Calcium Urine pH Urine WBC (Auto) Vancomycin Trough Salicylates Acetaminophen Crossmatch 11/27/20 11/27/20 11/27/20 05:55 11:41 18:08 WBC RBC Hgb Hct MCV MCH MCHC RDW Plt Count Lymph % (Auto) Seg Neutrophils % Seg Neuts % (Manual) Lymphocytes % (Manual) Nucleated RBC % Seg Neutrophils # Seg Neutrophils # Man Lymphocytes # (Manual) Monocytes # (Manual) PT INR ABG pH POC ABG pCO2 POC ABG pO2 ABG pO2 ABG HCO3 ABG O2 Saturation ABG Base Excess ABG Hemoglobin ABG Oxyhemoglobin ABG Sodium ABG Potassium ABG Chloride ABG Glucose Oxyhemoglobin Carboxyhemoglobin Sodium Potassium Chloride Carbon Dioxide 32 H BUN Creatinine 0.4 L Glucose 133 H POC Glucose 111 H 115 H Lactic Acid Calcium 7.5 L Phosphorus Magnesium Total Creatine Kinase Troponin T Total Protein 6.1 L Albumin 1.7 L Triglycerides LDL Cholesterol Direct HDL Cholesterol Arterial Blood Glucose Arterial Blood Ionized Calcium Urine pH Urine WBC (Auto) Vancomycin Trough Salicylates Acetaminophen Crossmatch 11/27/20 11/28/20 11/28/20 23:29 03:56 05:12 WBC RBC Hgb Hct MCV MCH MCHC RDW Plt Count Lymph % (Auto) Seg Neutrophils % Seg Neuts % (Manual) Lymphocytes % (Manual) Nucleated RBC % Seg Neutrophils # Seg Neutrophils # Man Lymphocytes # (Manual) Monocytes # (Manual) PT INR ABG pH 7.515 H POC ABG pCO2 POC ABG pO2 74.5 L ABG pO2 ABG HCO3 ABG O2 Saturation ABG Base Excess ABG Hemoglobin 8.4 L ABG Oxyhemoglobin ABG Sodium ABG Potassium ABG Chloride ABG Glucose 130 H Oxyhemoglobin Carboxyhemoglobin Sodium Potassium Chloride Carbon Dioxide BUN Creatinine Glucose POC Glucose 112 H 113 H Lactic Acid Calcium Phosphorus Magnesium Total Creatine Kinase Troponin T Total Protein Albumin Triglycerides LDL Cholesterol Direct HDL Cholesterol Arterial Blood Glucose 130 H Arterial Blood Ionized Calcium 4.5 L Urine pH Urine WBC (Auto) Vancomycin Trough Salicylates Acetaminophen Crossmatch 11/28/20 06:24 WBC RBC Hgb Hct MCV MCH MCHC RDW Plt Count Lymph % (Auto) Seg Neutrophils % Seg Neuts % (Manual) Lymphocytes % (Manual) Nucleated RBC % Seg Neutrophils # Seg Neutrophils # Man Lymphocytes # (Manual) Monocytes # (Manual) PT INR ABG pH POC ABG pCO2 POC ABG pO2 ABG pO2 ABG HCO3 ABG O2 Saturation ABG Base Excess ABG Hemoglobin ABG Oxyhemoglobin ABG Sodium ABG Potassium ABG Chloride ABG Glucose Oxyhemoglobin Carboxyhemoglobin Sodium 136 L Potassium Chloride Carbon Dioxide BUN Creatinine 0.4 L Glucose 124 H POC Glucose Lactic Acid Calcium 7.4 L Phosphorus Magnesium Total Creatine Kinase Troponin T Total Protein Albumin Triglycerides LDL Cholesterol Direct HDL Cholesterol Arterial Blood Glucose Arterial Blood Ionized Calcium Urine pH Urine WBC (Auto) Vancomycin Trough Salicylates Acetaminophen Crossmatch Chest x-ray: image reviewed (Bilateral fluffy infiltrate and pleural effusions unchanged from the past.) Allied health notes reviewed: nursing
--- NOTE | 2020-11-28 14:11 | Progress Note ---
Assessment and Plan Assessment and plan: 75-year-old male who is a snf resident with seizure disorder, hypertension, depression, hyperlipidemia, hypoglycemia, dysphagia, and encephalopathy who is admitted for sepsis, acute kidney injury, urinary tract infection, acute respiratory failure, electrolyte imbalances, infected sacral wound and bilateral pneumonia s/p Sepsis Acute respiratory failure with Hypoxia s/p Cardiovascular shock Infected sacral wound s/p debridement with surgery Generalized anasarca possible acute diastolic congestive heart failure Anemia Afib Bilateral pleural effusion Right and left lung atelectasis secondary to mucous plug s/p Proteus bacteremia s/p MRSA pneumonia s/p Urine tract infection Leukocytosis Acute kidney injury with vasomotor Nephropathy Acute Diarrhea ?C.diff- Test was not performed SFA occlusion - Not a candidate for surgery per Vascular Hyponatremia -ID, cardiology, CCM, surgery, vascular surgery, nephrology, surgery, WOCN consulted, appreciate recommendations -FAZAL, pneumonia, infected sacral wound, acute respiratory failure, leukocytosis, hypotension requiring vasopressor support -s/p Antibiotic therapy -10/26 tracheal aspirate with MRSA, 10/26 blood cultures x2 with Proteus mirab ilis, 10/27 urine culture possible contaminant, 11/15: Trach aspirate positive for staph coccus aureus, 11/06 occult stool positive -On mechanical ventilation, wean as tolerated, VAP bundle, CPAP trials as tolerated -Wound care per nursing -Fentanyl IVP -Midodrine, amiodorone -S/p IVF resuscitation -HIT panel negative -11/21/20 trach/PEG placement with surgery -s/p 5 units PRBC during stay -Not a candidate for vascularization per vascular -Trend CBC and BMP GI/DVT prophylaxis: Lovenox subq, SCDs to bilateral legs while in bed, PPI Dispo: ICU, [facility] The high probability of a clinically significant, sudden or life threatening deterioration of the [pulmonary, cardiac] system(s) required my full and direct attention, intervention and personal management. The aggregate critical care time was [30] minutes. This time is in addition to time spent performing reported procedures but includes the following: [X] Data Review and interpretation [X] Patient assessment and monitoring of vital signs [X] Documentation [X] Medication orders and management History Interval history: This is a 75-year-old male who is a snf resident with seizure disorder, hypertension, depression, hyperlipidemia, hypoglycemia, dysphagia, and encephalopathy who presents to the emergency department on 10/26 via EMS for tachypnea, dry mucous membranes and hypoxia. Patient was hypotensive, febrile to 103 degrees and hypoxic in the emergency department therefore he was intubated and central IV access was obtained. Patient received 3.5 L of IV fluid in the emergency department. Patient was admitted to the hospital service with consults to CCM, surgery, WOCN and ID for Sepsis, acute kidney injury, urinary tract infection, acute respiratory failure, electrolyte imbalances, infected sacral wound and bilateral pneumonia. 10/27: Patient received additional 4 L LR for fluid resuscitation and CV monitoring was initiated. Patient is on Levophed. ID added Flagyl to vancomycin and cefepime. His trach aspirate grew staph coccus aureus. At the time my examination patient the fentanyl drip was held by RN and he was on 14 MCG of Levophed. This morning he was on assist control 450/20/6/.100. We will give additional bolus of fluids with goal CVP 10-12 and repeat labs in AM. Surgery was consulted to possible debridement. 10/28: Overnight it was noted that patient went into SVT and he was given adenosine 6 mg/12 mg / 12 mg once and was started on a Cardizem drip after no response to amnio bolus and cardiology was consulted. Currently patient remains on Levophed drip and is hypotensive and received additional 2 L of bolus for goal CVP of 10-12. Infectious disease changed cefepime/Flagyl to meropenem for GNR in his blood cultures 09/04 and will continue vancomycin. Patient currently was not well controlled on max Cardizem and cardiology initiated amiodarone. Patient still is very tachycardic. Patient is hypomagnesemic and we will replete his Mg and recheck level. We will give the patient additional to complete resolve LR this afternoon. Patient has a standing order per [facility] to bolus the patient with LR for CVP goal of 10-12. This morning he is hyperchlormeic, metabolic acidotic (bicarb drip initiated) and his BUN/ creatinine slightly elevated. Patient still remains lactic acidotic. 10/29: Patient's blood culture speciated to Proteus and his tracheal aspirate is MRSA. He is currently on ceftriaxone, Flagyl and vancomycin. Patient heart rate consistently is 110-150s and cardiology has given him an amiodarone bolus today and he remains on amiodarone drip. He looks much started on IV digoxin. This morning 4 L LR bolus was ordered and we will bolus an additional 4 L of LR this afternoon. Patient still has lactic acidosis, metabolic acidosis, leukocytosis and hyperchloremia. On examination this morning patient is more edematous and he remains on Levophed and amnio drip. 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 Remains on amio, levo and sedated with fentanyl. He is hypokalemic today which was repleted, h/h 02/18 and he is being type and crossed today with 2 units PRBC ordered to be transfused. Plt drop noted, heparin discontinued and HIT ordered. Bicarb gtt discontinued. No acute events overnight. 10/31: Patient hypomagnesemia today which was repleted and cardiology has changed his IV amiodarone to p.o. Patient will get albumin per [facility]. At the time my examination patient is on assist control 450/20/6/0.40. 11/03: At the time my examination patient is on assist control 450/20/6/0.25 and sedated with fentanyl and on Levophed at 4.Patient's leukocytosis is improving he received Albumin this weekend. Patient is hypokalemic, hypomagnesemic, hypocalcemic today. We will repeat his electrolytes and recheck a BMP in the a.m. Patient received 2 units PRBC on 10/30 and his hemoglobin has been trending down. We will recheck in the a.m. 11/04: At the time of my examination patient was on Levophed 3 mcg and on VZV/CPAP 450/20/6/0.35. Patient still has leukocytosis, respiratory alkalosis, hyponatremia, hypochloremia, hypocalcemia. Today his magnesium and potassium repleted with bolus of potassium 4/magnesium 2. He received 60 mcg KCl p.o., 40 mEq of KCl IV and 2 g of magnesium sulfate. We will recheck BMP and mag and a.m. Surgery has deemed the patient to unstable for further debulking. We also consulted vascular surgery for PVD as patient has discoloration to BLE /feet. 11/05: Vascular surgery will obtain bilateral lower extremity arterial duplex to evaluate arterial flow and recommends adding as FWF to tube feedings in assisting to wean off of vasopressors. Patient has hypokalemia, hypophosphatemia and normal to low magnesium. Magnesium, potassium and phosphate have been repleted. Patient still remains on ventilator support but on CPAP trial this morning. Patient HIT is still pending. This morning at the time of my examination patient was on assist-control 450/20/6/0.35 and he tolerated CPAP trial for 4 hours yesterday. He was on Levophed 0.5 and his rectal tube output was noted at 1000 mL. 11/06: This morning patient was on a CPAP trial and became hypoxic with SPO2 into the 80s and was switched back to assist control. Patient's vent settings are assist control tidal and 450, rate 20, PEEP 6, FiO2 0.25. Today patient has le ukocytosis, hypernatremia, hyperchloremia, hypocalcemia and hypophosphatemia. We will repeat a phosphate. His free water flushes have been increased and his magnesium has been repleted again. Patient has been started on Lovenox given improvement in his platelet count and on midodrine to help keep Levophed off. Infectious disease will continue p.o. vancomycin for total of 10 days. 11/07: Patient failed his CPAP trial yesterday and has been placed on CPAP 05/06 again this morning by RT. Overnight patient was rested on assist control tolerance by 50, rate of 20, pressure support 6 and FiO2 30%. His lab work is still pending for this morning. On repeat his phosphorus was 4.50 yesterday and repletion was discontinued. 11/08/2020; patient is off pressors currently on midodrine. Patient is on ceftriaxone and vancomycin. Patient is on assist control. Patient was evaluated by vascular surgery for peripheral vascular disease with SFA occlusion and recommend no intervention at this time. Prognosis is guarded. Patient is on 2 L of intranasal oxygen. We will put speech therapy evaluation. 11/09/2020; patient is currently off pressors and on midodrine. Continue with ceftriaxone, Flagyl and vancomycin per ID recommendation. Patient's blood culture grew Proteus mirabilis and tracheal aspirate grew MRSA. Patient was evaluated by vascular surgery for PVD with SFA occlusion and recommend no intervention at this time. Patient is on 2 L of intranasal oxygen. Currently patient is on tube feeding and follow speech therapy evaluation. 11/10: Overnight noted to have increased RR, ? Awaiting speech eval considering patient still on Tube feeds. Continue to monitor Hypernatremia. Antibiotics today will be D12/14. Will continue discharge planning on discussion with CM. Patient nonrebreather. Possibly back on congestive heart failure will need appropriate diuresis. Transferred back to [facility]. Discussed with junior software developer and also with cardiology. 11/11: Remains lethargic remains in respiratory distress chest x-ray shows right lung collapse likely secondary to mucous plug. Discussed with junior software developer will likely undergo a bronchoscopy today. We will also continue to monitor as we did suggest possible pleural effusion which we think may be less likely but if that seems to be the case we will send patient for thoracentesis following the bronchoscopy. Continue to monitor hemoglobin continue to monitor diarrhea antibiotics management per infectious disease. I did speak and update patient's cousin yesterday. Patient still with edema will await cardiology reevaluation for possible further diuresis. 11/12: Patient for Bronchoscopy today. Continue supportive care 11/13: Patient Clinically improving, tolerated Bronchoscopy yesterday. Awaiting am labs today. Overnight had bradycardia. Continue weaning oxygen. Discussed with clam sorter patient did have bronchial plug plus pleural effusion but will address. Will monitor serial x-rays. Discussed with nursing staff about my discussion with the brother. Continue supportive care. PER Brother,([phone] patient has had recurrent knee aspiration. Cardiology to re-evaluate today for Bradycardia noted overnight 11/14: Patient had a repeat bronchoscopy yesterday of the right lung due to mucous plug. Hospice Volunteer did have a conversation with the cousin as one of the considerations may be a trach due to recurrent pulmonary mucous plug and also significant debility for patient's overall medical condition. And his inability to maintain his airway. We will start him on a low round of D5 until diet is established. We will continue to monitor clinical status this morning. Plan discussed with nursing staff patient and also with aeronautical project engineer 11/15: Continues to show some improvement, will check CXR today. Wean oxygen as tolerated, will likely need Trach per pulmonary. WBC improving, will monitor Sodium level. Patient on dopamin. 11/16: Patient overnight required intubation due to worsening respiratory failure secondary to complete opacification of the right lung again. This has appeared to cleared up this morning following the intuabation. Cousin advised of the finding, he will try to get us all his records because he believes that the patient has had a trach done before but is not sure. Started on Pressors due to hypotension 11/17: Today general surgery was consulted for trach/PEG placement, patient grew staph and tracheal aspirate and his cefepime was stopped and [facility] ordered a trial dose of Lasix. At the time my examination patient was on 1 mcg of fentanyl and dopamine 5 mcg/kg per cardiology. He has hyperchloremia and his lab work and is anemic today at 6.6/20.2. Patient received 1 unit PRBC. We will obtain a CBC in the a.m. 11/18: No acute events reported overnight, patient was given Lasix again by [facility], surgery has requested transfusion of one 1 unit PRBC despite H/H being 7.4/23.4 and plans to do a tracheostomy and plans to perform PEG and trach placement on 11/21/2020. We will follow up BMP and CBC in the a.m. Coags ordered. 11/19: Patient's next of kin still Mr. Buckley's next of kin/POA is still undecided about trach/PEG, surgeon aware. [facility] has given the patient another dose of Lasix and he was noted to be in atrial fibrillation with RVR this morning. Cardiology is aware and they have opted to resume amiodarone drip for rate control. We will obtain a BMP in the a.m. 11/20: At the time of examination patient remains on amiodarone 0.05 mcg and fentanyl 1 mcg on assist control tidal volume 500, rate 20, PEEP 6, FiO2 of 40%. Patient will have Lasix dose again. Dr. Quintanilla updated the family today. 11/21: Patient remains atrial fibrillation but is better rate controlled. Patient was taking to the OR for trach/PEG General surgery. No acute events reported overnight. Patient was given diuresed again and we will recheck a BMP in the a.m. 11/22. Patient tolerated tracheostomy. Alert no new concerns. Patient able to not that he is not in pain. 11/23 patient appears to be tolerating PEG tube feedings able to use tube feedin no new concerns over p.m. alert improving respiratory failure 11/24: No acute events overgnight. At the time my examination patient was on assist control tidal volume 500, rate 12, PEEP 6, FiO2 50%. Patient fentanyl drip discontinued and placed on IV push fentanyl 50 mcg every 2 hours. RN josh brooke right IJ. 11/25: Continue CPAP trials as tolerated, amiodarone decreased, midodrine and metoprolol initiated by cardiology. Patient had an episode of emesis however he denied being nauseous and did not have any emesis when trach suctioned. Patient remains afebrile. Midline was placed yesterday and IJ removed. Patient has leukocytosis but remains off of vasopressors, antibiotics and is febrile. At the time of examination patient is on assist control 21 500, rate 20, PEEP 6 and FiO2 45%. 11/26: Cardiology has increased his metoprolol and decreased his amiodarone due to soft blood pressures. Patient is adamant that he would like to go home. We will continue CPAP trials. 11/27: Patient CXR shows pulmonary edema and we will repeat Lasix. Continue CPAP trials Hospitalist Physical - Constitutional Vitals: Temp Pulse Resp BP Pulse Ox 98.0 F 93 H 20 143/85 90 11/28/20 12:00 11/28/20 13:00 11/28/20 13:00 11/28/20 13:00 11/28/20 13:00 General appearance: Present: no acute distress, other (Patient resting comfortably on vent) - EENT Eyes: Present: PERRL ENT: poor dentition - Neck Neck: Present: normal ROM - Respiratory Respiratory effort: normal Respiratory: bilateral: diminished - Cardiovascular Rhythm: regular Heart Sounds: Present: S1 & S2. Absent: systolic murmur, diastolic murmur - Extremities Extremities: no ischemia, pulses intact, pulses symmetrical, normal temperature, normal color Extremity abnormal: edema Peripheral Pulses: within normal limits - Abdominal General gastrointestinal: soft, non-tender, non-distended, normal bowel sounds - Integumentary Integumentary: Present: warm, dry - Psychiatric Psychiatric: cooperative, agitated - Neurologic Neurologic: CNII-XII intact, no focal deficits, moves all extremities - Allied Health Allied health notes reviewed: nursing, RT, social work HEART Score - HEART Score EKG: Non-specific Age: > 65 Risk factors: > 3 risk factors or hx of atherosclerotic disease Troponin: Troponin T 0.123 ng/mL (0.00-0.029) H* 11/13/20 23:15 Troponin: < normal limit - Critical Actions Critical Actions: 4-6 pts:12-16.6% risk of adverse cardiac event. Should be admitted Results - Labs CBC & Chem 7: 11/27/20 05:55 11/28/20 06:24 Labs: Laboratory Last Values WBC 18.1 K/mm3 (4.5-11.0) H 11/27/20 05:55 RBC 2.48 M/mm3 (3.65-5.03) L 11/27/20 05:55 Hgb 7.8 gm/dl (11.8-15.2) L 11/27/20 05:55 Hct 23.9 % (35.5-45.6) L 11/27/20 05:55 MCV 97 fl (84-94) H 11/27/20 05:55 MCH 32 pg (28-32) 11/27/20 05:55 MCHC 33 % (32-34) 11/27/20 05:55 RDW 17.7 % (13.2-15.2) H 11/27/20 05:55 Plt Count 384 K/mm3 (140-440) 11/27/20 05:55 Lymph % (Auto) 9.1 % (13.4-35.0) L 11/09/20 06:00 Morgan % (Auto) 5.4 % (0.0-7.3) 11/09/20 06:00 Eos % (Auto) 0.3 % (0.0-4.3) 11/09/20 06:00 Baso % (Auto) 0.4 % (0.0-1.8) 11/09/20 06:00 Lymph # (Auto) 1.2 K/mm3 (1.2-5.4) 11/09/20 06:00 Morgan # (Auto) 0.7 K/mm3 (0.0-0.8) 11/09/20 06:00 Eos # (Auto) 0.0 K/mm3 (0.0-0.4) 11/09/20 06:00 Baso # (Auto) 0.0 K/mm3 (0.0-0.1) 11/09/20 06:00 Add Manual Diff Complete 11/23/20 10:23 Total Counted 100 11/23/20 10:23 Seg Neutrophils % 84.8 % (40.0-70.0) H 11/09/20 06:00 Seg Neuts % (Manual) 94.0 % (40.0-70.0) H 11/23/20 10:23 Band Neutrophils % 17.0 % 10/27/20 03:30 Lymphocytes % (Manual) 5.0 % (13.4-35.0) L 11/23/20 10:23 Monocytes % (Manual) 1.0 % (0.0-7.3) 11/23/20 10:23 Eosinophils % (Manual) 2.0 % (0.0-4.3) 10/27/20 03:30 Metamyelocytes % 4.0 % 10/27/20 03:30 Nucleated RBC % Not Reportable 11/23/20 10:23 Seg Neutrophils # 11.1 K/mm3 (1.8-7.7) H 11/09/20 06:00 Seg Neutrophils # Man 10.6 K/mm3 (1.8-7.7) H 11/23/20 10:23 Band Neutrophils # 0.0 K/mm3 11/23/20 10:23 Lymphocytes # (Manual) 0.6 K/mm3 (1.2-5.4) L 11/23/20 10:23 Abs React Lymphs (Man) 0.0 K/mm3 11/23/20 10:23 Monocytes # (Manual) 0.1 K/mm3 (0.0-0.8) 11/23/20 10:23 Eosinophils # (Manual) 0.0 K/mm3 (0.0-0.4) 11/23/20 10:23 Basophils # (Manual) 0.0 K/mm3 (0.0-0.1) 11/23/20 10:23 Metamyelocytes # 0.0 K/mm3 11/23/20 10:23 Myelocytes # 0.0 K/mm3 11/23/20 10:23 Promyelocytes # 0.0 K/mm3 11/23/20 10:23 Blast Cells # 0.0 K/mm3 11/23/20 10:23 WBC Morphology Not Reportable 11/23/20 10:23 Hypersegmented Neuts Not Reportable 11/23/20 10:23 Hyposegmented Neuts Not Reportable 11/23/20 10:23 Hypogranular Neuts Not Reportable 11/23/20 10:23 Smudge Cells Not Reportable 11/23/20 10:23 Toxic Granulation Not Reportable 11/23/20 10:23 Toxic Vacuolation Not Reportable 11/23/20 10:23 Dohle Bodies Not Reportable 11/23/20 10:23 Pelger-Huet Anomaly Not Reportable 11/23/20 10:23 Kassi Rods Not Reportable 11/23/20 10:23 Platelet Estimate Consistent w auto 11/23/20 10:23 Clumped Platelets Not Reportable 11/23/20 10:23 Plt Clumps, EDTA Not Reportable 11/23/20 10:23 Large Platelets Not Reportable 11/23/20 10:23 Giant Platelets Not Reportable 11/23/20 10:23 Platelet Satelliting Not Reportable 11/23/20 10:23 Plt Morphology Comment Not Reportable 11/23/20 10:23 RBC Morphology Normal 11/23/20 10:23 Dimorphic RBCs Not Reportable 11/23/20 10:23 Polychromasia Not Reportable 11/23/20 10:23 Hypochromasia Not Reportable 11/23/20 10:23 Poikilocytosis Not Reportable 11/23/20 10:23 Anisocytosis Not Reportable 11/23/20 10:23 Microcytosis Not Reportable 11/23/20 10:23 Macrocytosis Not Reportable 11/23/20 10:23 Spherocytes Not Reportable 11/23/20 10:23 Pappenheimer Bodies Not Reportable 11/23/20 10:23 Sickle Cells Not Reportable 11/23/20 10:23 Target Cells Not Reportable 11/23/20 10:23 Tear Drop Cells Not Reportable 11/23/20 10:23 Ovalocytes Not Reportable 11/23/20 10:23 Helmet Cells Not Reportable 11/23/20 10:23 [place]-Zephyr Bodies Not Reportable 11/23/20 10:23 [place] Rings Not Reportable 11/23/20 10:23 [place] Cells Not Reportable 11/23/20 10:23 Bite Cells Not Reportable 11/23/20 10:23 Crenated Cell Not Reportable 11/23/20 10:23 Elliptocytes Not Reportable 11/23/20 10:23 Acanthocytes (Spur) Not Reportable 11/23/20 10:23 Rouleaux Not Reportable 11/23/20 10:23 Hemoglobin C Crystals Not Reportable 11/23/20 10:23 Schistocytes Not Reportable 11/23/20 10:23 Malaria parasites Not Reportable 11/23/20 10:23 Richard Bodies Not Reportable 11/23/20 10:23 Hem Pathologist Commnt No 11/23/20 10:23 PT 14.7 Sec. (12.2-14.9) 11/19/20 06:36 INR 1.15 (0.87-1.13) H 11/19/20 06:36 APTT 27.9 Sec. (24.2-36.6) 10/26/20 17:25 Heparin Anti-Xa, Unfract Negative (Negative) 11/03/20 11:01 ABG pH 7.515 (7.320-7.450) H 11/28/20 03:56 POC ABG pCO2 38.5 mmHg (32.0-48.0) 11/28/20 03:56 ABG pCO2 43.4 mm Hg 11/19/20 Unknown POC ABG pO2 74.5 mmHg (83-108) L 11/28/20 03:56 ABG pO2 72.4 mm Hg (80.0-90.0) L 11/19/20 Unknown POC ABG HCO3 30.4 11/28/20 03:56 ABG HCO3 26.9 mmol/L (20.0-26.0) H 11/19/20 Unknown ABG O2 Saturation 95.8 (0-100) 11/28/20 03:56 ABG O2 Content 11.3 (0.0-44) 11/19/20 Unknown POC ABG Base Excess 6.9 11/28/20 03:56 ABG Base Excess 2.0 mmol/L (-2.0-3.0) 11/19/20 Unknown ABG Hemoglobin 8.4 (12.0-17.5) L 11/28/20 03:56 ABG Oxyhemoglobin 94.8 (94-98) 11/28/20 03:56 ABG Carboxyhemoglobin 2.0 % (0.0-5.0) 11/19/20 Unknown ABG Methemoglobin 0.3 (0.0-1.5) 11/28/20 03:56 ABG Sodium 136.5 mmol/L (136.0-145.0) 11/28/20 03:56 ABG Potassium 3.9 mmol/L (3.40-4.50) 11/28/20 03:56 ABG Chloride 104.0 mmol/L (98-107) 11/28/20 03:56 ABG Glucose 130 mg/dL (65-95) H 11/28/20 03:56 Oxyhemoglobin 94.1 % (95.0-99.0) L 11/19/20 Unknown Carboxyhemoglobin 0.7 (0.5-1.5) 11/28/20 03:56 FiO2 30 % 11/19/20 Unknown FiO2 % 30.0 11/28/20 03:56 Sodium 136 mmol/L (137-145) L 11/28/20 06:24 Potassium 3.9 mmol/L (3.6-5.0) 11/28/20 06:24 Chloride 101.6 mmol/L (98-107) 11/28/20 06:24 Carbon Dioxide 28 mmol/L (22-30) 11/28/20 06:24 Anion Gap 10 mmol/L 11/28/20 06:24 BUN 15 mg/dL (9-20) 11/28/20 06:24 Creatinine 0.4 mg/dL (0.8-1.3) L 11/28/20 06:24 Estimated GFR > 60 ml/min 11/28/20 06:24 BUN/Creatinine Ratio 38 % 11/28/20 06:24 Glucose 124 mg/dL (75-100) H 11/28/20 06:24 POC Glucose 113 mg/dL (70-105) H 11/28/20 05:12 Hemoglobin A1c 5.5 % (4-6) 10/27/20 04:42 Lactic Acid 4.30 mmol/L (0.7-2.0) H* 10/31/20 Unknown Calcium 7.4 mg/dL (8.4-10.2) L 11/28/20 06:24 Phosphorus 4.50 mg/dL (2.5-4.5) D 11/06/20 13:03 Magnesium 1.70 mg/dL (1.7-2.3) 11/21/20 09:47 Total Bilirubin < 0.20 mg/dL (0.1-1.2) 11/27/20 05:55 AST 8 units/L (5-40) 11/27/20 05:55 ALT 8 units/L (7-56) 11/27/20 05:55 Alkaline Phosphatase 87 units/L (35-129) 11/27/20 05:55 Total Creatine Kinase 31 units/L (55-170) L 10/26/20 17:28 Troponin T 0.123 ng/mL (0.00-0.029) H* 11/13/20 23:15 Total Protein 6.1 g/dL (6.3-8.2) L 11/27/20 05:55 Albumin 1.7 g/dL (3.9-5) L 11/27/20 05:55 Albumin/Globulin Ratio 0.4 % 11/27/20 05:55 Triglycerides 190 mg/dL (2-149) H 10/26/20 17:25 Cholesterol 92 mg/dL (50-199) 10/26/20 17:25 LDL Cholesterol Direct 33 mg/dL (50-130) L 10/26/20 17:25 HDL Cholesterol 18 mg/dL (40-59) L 10/26/20 17:25 Cholesterol/HDL Ratio 5.11 % 10/26/20 17:25 Serotonin Release Assay See scanned results 11/03/20 11:01 TSH 1.490 mlU/mL (0.270-4.200) 10/26/20 17:28 Arterial Blood Glucose 130 mg/dL (65-95) H 11/28/20 03:56 Arterial Blood Ionized Calcium 4.5 mg/dL (4.6-5.3) L 11/28/20 03:56 Urine Color Yellow (Yellow) 10/27/20 Unknown Urine Turbidity Turbid (Clear) 10/27/20 Unknown Urine pH 8.0 (5.0-7.0) H 10/27/20 Unknown Ur Specific [place] 1.020 (1.003-1.030) 10/27/20 Unknown Urine Protein >500 mg/dL (Negative) 10/27/20 Unknown Urine Glucose (UA) Neg mg/dL (Negative) 10/27/20 Unknown Urine Ketones Neg mg/dL (Negative) 10/27/20 Unknown Urine Blood Sm (Negative) 10/27/20 Unknown Urine Nitrite Neg (Negative) 10/27/20 Unknown Urine Bilirubin Neg (Negative) 10/27/20 Unknown Urine Urobilinogen < 2.0 mg/dL (<2.0) 10/27/20 Unknown Ur Leukocyte Esterase Mod (Negative) 10/27/20 Unknown Urine WBC (Auto) > 182.0 /HPF (0.0-6.0) H 10/27/20 Unknown Urine RBC (Auto) 35.0 /HPF (0.0-6.0) 10/27/20 Unknown Urine WBC Clumps 3+ /HPF 10/27/20 Unknown Urine Mucus 3+ /HPF 10/27/20 Unknown Urine Yeast (Budding) 3+ /HPF 10/27/20 Unknown Vancomycin Trough 18.0 ug/mL (5.0-20.0) 11/19/20 09:06 Salicylates < 0.3 mg/dL (2.8-20.0) L 10/26/20 17:28 Acetaminophen 5.0 ug/mL (10.0-30.0) L 10/26/20 17:28 Heparin-induced Plt Ab Negative (Negative) 11/03/20 11:01 UF Heparin High Dose 0 % Release 11/03/20 11:01 MOISES UFH Low Dose 0.1 2 % Release 11/03/20 11:01 MOISES UFH Low Dose 0.5 0 % Release 11/03/20 11:01 Coronavirus (PCR) Negative (Negative) 10/27/20 Unknown Blood Type O POSITIVE 11/17/20 11:10 Antibody Screen Negative 11/17/20 11:10 Crossmatch See Detail 11/17/20 11:10 Rivas/IV: Voiding Method Indwelling Catheter Active Medications - Current Medications Current Medications: Generic Name Dose Route Start Last Admin Trade Name Freq PRN Reason Stop Dose Admin Acetaminophen 650 mg 10/26/20 22:22 11/27/20 20:28 Acetaminophen 325 Mg Tab PO 650 mg Q4H PRN Administration Pain MILD(1-3)/Fever >100.5/TIERNEY Albuterol 2.5 mg 11/11/20 14:00 11/28/20 08:27 Albuterol 2.5 Mg/3 Ml Nebu IH 2.5 mg TIDRT MARSHALL Administration Amiodarone HCl 200 mg 11/25/20 10:00 11/28/20 12:20 Amiodarone 200 Mg Tab PO 200 mg BID MARSHALL Administration Lipase/Protease/Amylase 1 each 10/28/20 13:18 Lipase 10,500/Protease 25,000/Amylase 43,750 (Units) Dr Cap FEEDTUBE PRN PRN For Clogged Feeding Tube Enoxaparin Sodium 40 mg 11/22/20 22:00 11/27/20 21:45 Enoxaparin 40 Mg/0.4 Ml Inj SUB-Q 40 mg QDAY@2200 MARSHALL Administration Protocol Famotidine 20 mg 11/24/20 22:00 11/28/20 10:00 Famotidine 20 Mg Tab PO 20 mg BID MARSHALL Administration Fentanyl 50 mcg 11/15/20 22:30 11/28/20 01:00 Fentanyl 100 Mcg/2 Ml Inj IV 50 mcg Q10MIN PRN Administration ANALGESIA Hydrophilic Ointment 1 applic 11/15/20 22:30 Lip Therapy Vaseline TP Q2HR PRN Dry Lips Norepinephrine 4 mg in 250 mls @ 7.5 mls/hr 11/15/20 23:45 11/17/20 01:37 Levophed Drip 4 Mg/Ns 250 Ml IV 0 mcg/min TITR MARSHALL 0 mls/hr Titration Protocol 2 MCG/MIN Metoprolol Tartrate 12.5 mg 11/26/20 12:00 11/28/20 12:20 Metoprolol Tartrate 25 Mg Tab PO 12.5 mg Q6HR MARSHALL Administration Midodrine 10 mg 11/06/20 12:00 11/28/20 12:19 Midodrine 5 Mg Tab PO 10 mg TID@0800,1200,1600 MARSHALL Administration Multi-Ingred Cream/Lotion/Oil/Oint 1 applic 11/15/20 22:30 Mineral Oil/Petrolatum, White Ophth Oint 3.5 Gm OU Q4HR PRN Dry Eye(s) Simple Syrup 15 ml 10/28/20 13:18 11/10/20 16:01 Simple Syrup 15 Ml FEEDTUBE 15 ml PRN PRN Administration Hypoglycemia Simple Syrup 30 ml 10/28/20 13:18 Simple Syrup 15 Ml FEEDTUBE PRN PRN Hypoglycemia Sodium Bicarbonate 325 mg 10/28/20 13:18 Sodium Bicarbonate 325 Mg Tab FEEDTUBE PRN PRN For Clogged Feeding Tube Sodium Hypochlorite 1 applic 10/28/20 10:00 11/28/20 12:49 Sodium Hypochlorite, [place]'s 1/2 Strength (0.25%) 473 Ml Topical Soln TP 2 applicatio BID MARSHALL Administration Nutrition/Malnutrition Assess - Dietary Evaluation Nutrition/Malnutrition Findings: Nutrition Notes Start: 10/27/20 09:15 Freq: Status: Active Protocol: Document 11/27/20 14:29 CW (Rec: 11/27/20 14:37 CW [id number]) Nutrition Notes Initial or Follow up Reassessment Current Diagnosis Acute Kidney Injury,Decubitus( Pressure Ulcer),Sepsis, Hypertension,Respiratory Failure,Hyperlipidemia Other Pertinent Diagnosis AMS, MRSA, Encephalopathy, Metabiloc Acidosis, pneu ,FTT Current Diet Vital AF at 70 ml/hr Labs/Tests reviewed Pertinent Medications reviewed Height 6 ft 2 in Weight 85 kg [place] Body Weight (kg) 86.36 BMI 24.0 Weight Status Obese Subjective/Other Information F/U for TF change, tolerance, and at goal. Pt remains on mechanical vent. TF Vital AF is running at goal of 70 ml/hr and is being well tolerated. No recent events of emesis Percent of energy/protein needs met: 100%/95% Burn Absent Trauma Absent GI Symptoms Diarrhea Difficulty In Swallowing,Chewing Skin Integrity/Comment Multiple pressure ulcer,1 infected Current % PO Negligible Minimum of two criteria No Fluid Accumulation Mild (non-severe) #2 Nutrition Diagnosis Increased nutrient needs ( specify in comment below) Diagnosis Progress(for reassessment Continues documentation) #1 Nutrition Diagnosis Inadequate oral intake Diagnosis Progress(for reassessment Continues documentation) Is patient on ventilator? Yes Is Patient Ambulatory and/or Out of Bed No REE-([facility]-confined to bed) 97 Calculation Used for Recommendations [facility] Additional Notes protein needs: 133 - 167g(1.2 - 1.5 g/kgAdBW 111) Fluid needs 1 ml/kcal Nutrition Intervention Change Diet Order: Continue Nutrition Support: Vital AF at 70 ml/hr with a free water flush of 115 ml q4h Kcal 2,016 Protein (gm) 126 Fluid (mL) 1,362 Goal #1 TF change and tolerance Goal #2 Meet at least 75% EER and protein needs via TF Goal #3 wound healing Anticipated Discharge Needs: TF Follow-Up By: 12/02/20 Additional Comments F/U for TF tolerance
[2020-11-28] MEDS: ENOXAPARIN 40 MG/0.4 ML INJ SUB-Q SCH (21:19)
[2020-11-29] MEDS: METOPROLOL TARTRATE 25 MG TAB PO SCH ×3 (06:23→18:11)
[2020-11-29] MEDS: MIDODRINE 5 MG TAB PO SCH ×3 (08:14→16:49)
[2020-11-29] MEDS: ALBUTEROL 2.5 MG/3 ML NEBU IH SCH ×3 (08:35→20:17)
[2020-11-29] MEDS: FAMOTIDINE 20 MG TAB PO SCH ×2 (09:12→22:01)
[2020-11-29] MEDS: SODIUM HYPOCHLORITE, DAKIN'S 1/2 STRENGTH (0.25%) 473 ML TOPICAL SOLN TP SCH ×2 (09:12→22:01)
[2020-11-29] MEDS: AMIODARONE 200 MG TAB PO SCH ×2 (09:12→22:01)
--- NOTE | 2020-11-29 09:46 | Progress Note ---
Assessment and Plan Assessment and plan: This is a 75-year-old male who is a [facility] resident with seizure disorder, hypertension, depression, hyperlipidemia, hypoglycemia, dysphagia, and encephalopathy who presents to the emergency department on 10/26 via EMS for tachypnea, dry mucous membranes and hypoxia. Patient was hypotensive, febrile to 103 degrees and hypoxic in the emergency department therefore he was intubated and central IV access was obtained. Patient received 3.5 L of IV fluid in the emergency department. Patient was admitted to the hospital service with consults to CCM, surgery, WOCN and ID for Sepsis, acute kidney injury, urinary tract infection, acute respiratory failure, electrolyte imbalances, infected sacral wound and bilateral pneumonia. s/p Sepsis Acute respiratory failure with Hypoxia s/p Cardiovascular shock Infected sacral wound s/p debridement with surgery Generalized anasarca possible acute diastolic congestive heart failure Anemia Afib Bilateral pleural effusion Right and left lung atelectasis secondary to mucous plug s/p Proteus bacteremia s/p MRSA pneumonia s/p Urine tract infection Leukocytosis Acute kidney injury with vasomotor Nephropathy Acute Diarrhea ?C.diff- Test was not performed SFA occlusion - Not a candidate for surgery per Vascular Hyponatremia 10/27: Patient received additional 4 L LR for fluid resuscitation and CV monitoring was initiated. Patient is on Levophed. ID added Flagyl to vancomycin and cefepime. His trach aspirate grew staph coccus aureus. At the time my examination patient the fentanyl drip was held by RN and he was on 14 MCG of Levophed. This morning he was on assist control 450/20/6/.100. We will give additional bolus of fluids with goal CVP 10-12 and repeat labs in AM. Surgery was consulted to possible debridement. 10/28: Overnight it was noted that patient went into SVT and he was given adenosine 6 mg/12 mg / 12 mg once and was started on a Cardizem drip after no response to amnio bolus and cardiology was consulted. Currently patient remains on Levophed drip and is hypotensive and received additional 2 L of bolus for goal CVP of 10-12. Infectious disease changed cefepime/Flagyl to meropenem for GNR in his blood cultures 09/04 and will continue vancomycin. Patient currently was not well controlled on max Cardizem and cardiology initiated amiodarone. Patient still is very tachycardic. Patient is hypomagnesemic and we will replet e his Mg and recheck level. We will give the patient additional to complete resolve LR this afternoon. Patient has a standing order per [facility] to bolus the patient with LR for CVP goal of 10-12. This morning he is hyperchlormeic, metabolic acidotic (bicarb drip initiated) and his BUN/creatinine slightly elevated. Patient still remains lactic acidotic. 10/29: Patient's blood culture speciated to Proteus and his tracheal aspirate is MRSA. He is currently on ceftriaxone, Flagyl and vancomycin. Patient heart rate consistently is 110-150s and cardiology has given him an amiodarone bolus today and he remains on amiodarone drip. He looks much started on IV digoxin. This morning 4 L LR bolus was ordered and we will bolus an additional 4 L of LR this afternoon. Patient still has lactic acidosis, metabolic acidosis, leukocytosis and hyperchloremia. On examination this morning patient is more edematous and he remains on Levophed and amnio drip. 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 Remains on amio, levo and sedated with fentanyl. He is hypokalemic today which was repleted, h/h 02/18 and he is being type and crossed today with 2 units PRBC ordered to be transfused. Plt drop noted, heparin discontinued and HIT ordered. Bicarb gtt discontinued. No acute events overnight. 10/31: Patient hypomagnesemia today which was repleted and cardiology has changed his IV amiodarone to p.o. Patient will get albumin per [facility]. At the time my examination patient is on assist control 450/20/6/0.40. 11/03: At the time my examination patient is on assist control 450/20/6/0.25 and sedated with fentanyl and on Levophed at 4.Patient's leukocytosis is improving he received Albumin this weekend. Patient is hypokalemic, hypomagnesemic, hypocalcemic today. We will repeat his electrolytes and recheck a BMP in the a.m. Patient received 2 units PRBC on 10/30 and his hemoglobin has been trending down. We will recheck in the a.m. 11/04: At the time of my examination patient was on Levophed 3 mcg and on VZV/CPAP 450/20/6/0.35. Patient still has leukocytosis, respiratory alkalosis, hyponatremia, hypochloremia, hypocalcemia. Today his magnesium and potassium repleted with bolus of potassium 4/magnesium 2. He received 60 mcg KCl p.o., 40 mEq of KCl IV and 2 g of magnesium sulfate. We will recheck BMP and mag and a.m. Surgery has deemed the patient to unstable for further debulking. We also consulted vascular surgery for PVD as patient has discoloration to BLE /feet. 11/05: Vascular surgery will obtain bilateral lower extremity arterial duplex to evaluate arterial flow and recommends adding as FWF to tube feedings in assisting to wean off of vasopressors. Patient has hypokalemia, hypophosphatemia and normal to low magnesium. Magnesium, potassium and phosph ate have been repleted. Patient still remains on ventilator support but on CPAP trial this morning. Patient HIT is still pending. This morning at the time of my examination patient was on assist-control 450/20/6/0.35 and he tolerated CPAP trial for 4 hours yesterday. He was on Levophed 0.5 and his rectal tube output was noted at 1000 mL. 11/06: This morning patient was on a CPAP trial and became hypoxic with SPO2 into the 80s and was switched back to assist control. Patient's vent settings are assist control tidal and 450, rate 20, PEEP 6, FiO2 0.25. Today patient has leukocytosis, hypernatremia, hyperchloremia, hypocalcemia and hypophosphatemia. We will repeat a phosphate. His free water flushes have been increased and his magnesium has been repleted again. Patient has been started on Lovenox given improvement in his platelet count and on midodrine to help keep Levophed off. I nfectious disease will continue p.o. vancomycin for total of 10 days. 11/07: Patient failed his CPAP trial yesterday and has been placed on CPAP 05/06 again this morning by RT. Overnight patient was rested on assist control tolerance by 50, rate of 20, pressure support 6 and FiO2 30%. His lab work is still pending for this morning. On repeat his phosphorus was 4.50 yesterday and repletion was discontinued. 11/08/2020; patient is off pressors currently on midodrine. Patient is on ceftriaxone and vancomycin. Patient is on assist control. Patient was evaluated by vascular surgery for peripheral vascular disease with SFA occlusion and recommend no intervention at this time. Prognosis is guarded. Patient is on 2 L of intranasal oxygen. We will put speech therapy evaluation. 11/09/2020; patient is currently off pressors and on midodrine. Continue with ceftriaxone, Flagyl and vancomycin per ID recommendation. Patient's blood culture grew Proteus mirabilis and tracheal aspirate grew MRSA. Patient was evaluated by vascular surgery for PVD with SFA occlusion and recommend no intervention at this time. Patient is on 2 L of intranasal oxygen. Currently patient is on tube feeding and follow speech therapy evaluation. 11/10: Overnight noted to have increased RR, ? Awaiting speech eval considering patient still on Tube feeds. Continue to monitor Hypernatremia. Antibiotics today will be D12/14. Will continue discharge planning on discussion with CM. Patient nonrebreather. Possibly back on congestive heart failure will need appropriate diuresis. Transferred back to [facility]. Discussed with tandem mill operator and also with cardiology. 11/11: Remains lethargic remains in respiratory distress chest x-ray shows right lung collapse likely secondary to mucous plug. Discussed with tandem mill operator will likely undergo a bronchoscopy today. We will also continue to monitor as we did suggest possible pleural effusion which we think may be less likely but if that seems to be the case we will send patient for thoracentesis following the bronchoscopy. Continue to monitor hemoglobin continue to monitor diarrhea antibiotics management per infectious disease. I did speak and update patient's cousin yesterday. Patient still with edema will await cardiology reevaluation for possible further diuresis. 11/12: Patient for Bronchoscopy today. Continue supportive care 11/13: Patient Clinically improving, tolerated Bronchoscopy yesterday. Awaiting am labs today. Overnight had bradycardia. Continue weaning oxygen. Discussed with modeling agent patient did have bronchial plug plus pleural effusion but will address. Will monitor serial x-rays. Discussed with nursing staff about my discussion with the brother. Continue supportive care. PER Brother,([phone] patient has had recurrent knee aspiration. Cardiology to re-evaluate today for Bradycardia noted overnight 11/14: Patient had a repeat bronchoscopy yesterday of the right lung due to mucous plug. Licensed Land Surveyor did have a conversation with the cousin as one of the considerations may be a trach due to recurrent pulmonary mucous plug and also significant debility for patient's overall medical condition. And his inability to maintain his airway. We will start him on a low round of D5 until diet is established. We will continue to monitor clinical status this morning. Plan discussed with nursing staff patient and also with wool dyer 11/15: Continues to show some improvement, will check CXR today. Wean oxygen as tolerated, will likely need Trach per pulmonary. WBC improving, will monitor Sodium level. Patient on dopamin. 11/16: Patient overnight required intubation due to worsening respiratory failure secondary to complete opacification of the right lung again. This has appeared to cleared up this morning following the intuabation. Cousin advised of the finding, he will try to get us all his records because he believes that the patient has had a trach done before but is not sure. Started on Pressors due to hypotension 11/17: Today general surgery was consulted for trach/PEG placement, patient grew staph and tracheal aspirate and his cefepime was stopped and [facility] ordered a trial dose of Lasix. At the time my examination patient was on 1 mcg of fentanyl and dopamine 5 mcg/kg per cardiology. He has hyperchloremia and his lab work and is anemic today at 6.6/20.2. Patient received 1 unit PRBC. We will obtain a CBC in the a.m. 11/18: No acute events reported overnight, patient was given Lasix again by [facility], surgery has requested transfusion of one 1 unit PRBC despite H/H being 7.4/23.4 and plans to do a tracheostomy and plans to perform PEG and trach placement on 11/21/2020. We will follow up BMP and CBC in the a.m. Coags ordered. 11/19: Patient's next of kin still Mr. Buckley's next of kin/POA is still undecided about trach/PEG, surgeon aware. [facility] has given the patient another dose of Lasix and he was noted to be in atrial fibrillation with RVR this morning. Ca rdiology is aware and they have opted to resume amiodarone drip for rate control. We will obtain a BMP in the a.m. 11/20: At the time of examination patient remains on amiodarone 0.05 mcg and fentanyl 1 mcg on assist control tidal volume 500, rate 20, PEEP 6, FiO2 of 40%. Patient will have Lasix dose again. Dr. Quintanilla updated the family today. 11/21: Patient remains atrial fibrillation but is better rate controlled. Patient was taking to the OR for trach/PEG General surgery. No acute events reported overnight. Patient was given diuresed again and we will recheck a BMP in the a.m. 11/22. Patient tolerated tracheostomy. Alert no new concerns. Patient able to not that he is not in pain. 11/23 patient appears to be tolerating PEG tube feedings able to use tube feedings no new concerns over p.m. alert improving respiratory failure 11/24: No acute events overgnight. At the time my examination patient was on assist control tidal volume 500, rate 12, PEEP 6, FiO2 50%. Patient fentanyl drip discontinued and placed on IV push fentanyl 50 mcg every 2 hours. RN to remove right IJ. 11/25: Continue CPAP trials as tolerated, amiodarone decreased, midodrine and metoprolol initiated by cardiology. Patient had an episode of emesis however he denied being nauseous and did not have any emesis when trach suctioned. Patient remains afebrile. Midline was placed yesterday and IJ removed. Patient has leukocytosis but remains off of vasopressors, antibiotics and is febrile. At the time of examination patient is on assist control 21 500, rate 20, PEEP 6 and FiO2 45%. 11/26: Cardiology has increased his metoprolol and decreased his amiodarone due to soft blood pressures. Patient is adamant that he would like to go home. We will continue CPAP trials. 11/27: Patient CXR shows pulmonary edema and we will repeat Lasix. Continue CPAP trials 11/29: Patient on mechanical ventilation with s/p trach/PEG on 11/21/2020. Patient currently with PSV/CPAP mode FiO2 30%, PEEP of 6 and pressure support of 12. Continue vent weaning per pulmonary. Continue fentanyl and wean as tolerated. Tracheostomy care, secretion control and airway management. Gastrostomy tube care. Tube feedings with aspiration precautions. Continue midodrine and amiodarone. History Interval history: No new issues overnight. Hospitalist Physical - Constitutional Vitals: Temp Pulse Resp BP Pulse Ox 98.7 F 91 H 25 H 129/78 94 11/29/20 08:00 11/29/20 09:00 11/29/20 09:00 11/29/20 09:00 11/29/20 09:00 General appearance: Present: no acute distress, other (Patient resting comfortably on vent) - EENT Eyes: Present: PERRL, EOM intact ENT: hearing intact, clear oral mucosa, dentition normal - Neck Neck: Present: supple, normal ROM - Respiratory Respiratory effort: normal Respiratory: bilateral: CTA - Cardiovascular Rhythm: regular Heart Sounds: Present: S1 & S2. Absent: gallop, rub - Extremities Extremities: no ischemia, No edema, Full ROM - Abdominal General gastrointestinal: soft, non-tender, non-distended, normal bowel sounds - Integumentary Integumentary: Present: clear, warm, dry - Neurologic Neurologic: CNII-XII intact, moves all extremities HEART Score - HEART Score EKG: Non-specific Age: > 65 Risk factors: > 3 risk factors or hx of atherosclerotic disease Troponin: Troponin T 0.123 ng/mL (0.00-0.029) H* 11/13/20 23:15 Troponin: < normal limit - Critical Actions Critical Actions: 4-6 pts:12-16.6% risk of adverse cardiac event. Should be admitted Results - Labs CBC & Chem 7: 11/27/20 05:55 11/28/20 06:24 Labs: Laboratory Last Values WBC 18.1 K/mm3 (4.5-11.0) H 11/27/20 05:55 RBC 2.48 M/mm3 (3.65-5.03) L 11/27/20 05:55 Hgb 7.8 gm/dl (11.8-15.2) L 11/27/20 05:55 Hct 23.9 % (35.5-45.6) L 11/27/20 05:55 MCV 97 fl (84-94) H 11/27/20 05:55 MCH 32 pg (28-32) 11/27/20 05:55 MCHC 33 % (32-34) 11/27/20 05:55 RDW 17.7 % (13.2-15.2) H 11/27/20 05:55 Plt Count 384 K/mm3 (140-440) 11/27/20 05:55 Lymph % (Auto) 9.1 % (13.4-35.0) L 11/09/20 06:00 [place] % (Auto) 5.4 % (0.0-7.3) 11/09/20 06:00 Eos % (Auto) 0.3 % (0.0-4.3) 11/09/20 06:00 Baso % (Auto) 0.4 % (0.0-1.8) 11/09/20 06:00 Lymph # (Auto) 1.2 K/mm3 (1.2-5.4) 11/09/20 06:00 [place] # (Auto) 0.7 K/mm3 (0.0-0.8) 11/09/20 06:00 Eos # (Auto) 0.0 K/mm3 (0.0-0.4) 11/09/20 06:00 Baso # (Auto) 0.0 K/mm3 (0.0-0.1) 11/09/20 06:00 Add Manual Diff Complete 11/23/20 10:23 Total Counted 100 11/23/20 10:23 Seg Neutrophils % 84.8 % (40.0-70.0) H 11/09/20 06:00 Seg Neuts % (Manual) 94.0 % (40.0-70.0) H 11/23/20 10:23 Band Neutrophils % 17.0 % 10/27/20 03:30 Lymphocytes % (Manual) 5.0 % (13.4-35.0) L 11/23/20 10:23 Monocytes % (Manual) 1.0 % (0.0-7.3) 11/23/20 10:23 Eosinophils % (Manual) 2.0 % (0.0-4.3) 10/27/20 03:30 Metamyelocytes % 4.0 % 10/27/20 03:30 Nucleated RBC % Not Reportable 11/23/20 10:23 Seg Neutrophils # 11.1 K/mm3 (1.8-7.7) H 11/09/20 06:00 Seg Neutrophils # Man 10.6 K/mm3 (1.8-7.7) H 11/23/20 10:23 Band Neutrophils # 0.0 K/mm3 11/23/20 10:23 Lymphocytes # (Manual) 0.6 K/mm3 (1.2-5.4) L 11/23/20 10:23 Abs React Lymphs (Man) 0.0 K/mm3 11/23/20 10:23 Monocytes # (Manual) 0.1 K/mm3 (0.0-0.8) 11/23/20 10:23 Eosinophils # (Manual) 0.0 K/mm3 (0.0-0.4) 11/23/20 10:23 Basophils # (Manual) 0.0 K/mm3 (0.0-0.1) 11/23/20 10:23 Metamyelocytes # 0.0 K/mm3 11/23/20 10:23 Myelocytes # 0.0 K/mm3 11/23/20 10:23 Promyelocytes # 0.0 K/mm3 11/23/20 10:23 Blast Cells # 0.0 K/mm3 11/23/20 10:23 WBC Morphology Not Reportable 11/23/20 10:23 Hypersegmented Neuts Not Reportable 11/23/20 10:23 Hyposegmented Neuts Not Reportable 11/23/20 10:23 Hypogranular Neuts Not Reportable 11/23/20 10:23 Smudge Cells Not Reportable 11/23/20 10:23 Toxic Granulation Not Reportable 11/23/20 10:23 Toxic Vacuolation Not Reportable 11/23/20 10:23 Dohle Bodies Not Reportable 11/23/20 10:23 Pelger-Huet Anomaly Not Reportable 11/23/20 10:23 Kassi Rods Not Reportable 11/23/20 10:23 Platelet Estimate Consistent w auto 11/23/20 10:23 Clumped Platelets Not Reportable 11/23/20 10:23 Plt Clumps, EDTA Not Reportable 11/23/20 10:23 Large Platelets Not Reportable 11/23/20 10:23 Giant Platelets Not Reportable 11/23/20 10:23 Platelet Satelliting Not Reportable 11/23/20 10:23 Plt Morphology Comment Not Reportable 11/23/20 10:23 RBC Morphology Normal 11/23/20 10:23 Dimorphic RBCs Not Reportable 11/23/20 10:23 Polychromasia Not Reportable 11/23/20 10:23 Hypochromasia Not Reportable 11/23/20 10:23 Poikilocytosis Not Reportable 11/23/20 10:23 Anisocytosis Not Reportable 11/23/20 10:23 Microcytosis Not Reportable 11/23/20 10:23 Macrocytosis Not Reportable 11/23/20 10:23 Spherocytes Not Reportable 11/23/20 10:23 Pappenheimer Bodies Not Reportable 11/23/20 10:23 Sickle Cells Not Reportable 11/23/20 10:23 Target Cells Not Reportable 11/23/20 10:23 Tear Drop Cells Not Reportable 11/23/20 10:23 Ovalocytes Not Reportable 11/23/20 10:23 Helmet Cells Not Reportable 11/23/20 10:23 [place] Bodies Not Reportable 11/23/20 10:23 [place] Rings Not Reportable 11/23/20 10:23 Rhea Cells Not Reportable 11/23/20 10:23 Bite Cells Not Reportable 11/23/20 10:23 Crenated Cell Not Reportable 11/23/20 10:23 Elliptocytes Not Reportable 11/23/20 10:23 Acanthocytes (Spur) Not Reportable 11/23/20 10:23 Rouleaux Not Reportable 11/23/20 10:23 Hemoglobin C Crystals Not Reportable 11/23/20 10:23 Schistocytes Not Reportable 11/23/20 10:23 Malaria parasites Not Reportable 11/23/20 10:23 Richard Bodies Not Reportable 11/23/20 10:23 Hem Pathologist Commnt No 11/23/20 10:23 PT 14.7 Sec. (12.2-14.9) 11/19/20 06:36 INR 1.15 (0.87-1.13) H 11/19/20 06:36 APTT 27.9 Sec. (24.2-36.6) 10/26/20 17:25 Heparin Anti-Xa, Unfract Negative (Negative) 11/03/20 11:01 ABG pH 7.515 (7.320-7.450) H 11/28/20 03:56 POC ABG pCO2 38.5 mmHg (32.0-48.0) 11/28/20 03:56 ABG pCO2 43.4 mm Hg 11/19/20 Unknown POC ABG pO2 74.5 mmHg (83-108) L 11/28/20 03:56 ABG pO2 72.4 mm Hg (80.0-90.0) L 11/19/20 Unknown POC ABG HCO3 30.4 11/28/20 03:56 ABG HCO3 26.9 mmol/L (20.0-26.0) H 11/19/20 Unknown ABG O2 Saturation 95.8 (0-100) 11/28/20 03:56 ABG O2 Content 11.3 (0.0-44) 11/19/20 Unknown POC ABG Base Excess 6.9 11/28/20 03:56 ABG Base Excess 2.0 mmol/L (-2.0-3.0) 11/19/20 Unknown ABG Hemoglobin 8.4 (12.0-17.5) L 11/28/20 03:56 ABG Oxyhemoglobin 94.8 (94-98) 11/28/20 03:56 ABG Carboxyhemoglobin 2.0 % (0.0-5.0) 11/19/20 Unknown ABG Methemoglobin 0.3 (0.0-1.5) 11/28/20 03:56 ABG Sodium 136.5 mmol/L (136.0-145.0) 11/28/20 03:56 ABG Potassium 3.9 mmol/L (3.40-4.50) 11/28/20 03:56 ABG Chloride 104.0 mmol/L (98-107) 11/28/20 03:56 ABG Glucose 130 mg/dL (65-95) H 11/28/20 03:56 Oxyhemoglobin 94.1 % (95.0-99.0) L 11/19/20 Unknown Carboxyhemoglobin 0.7 (0.5-1.5) 11/28/20 03:56 FiO2 30 % 11/19/20 Unknown FiO2 % 30.0 11/28/20 03:56 Sodium 136 mmol/L (137-145) L 11/28/20 06:24 Potassium 3.9 mmol/L (3.6-5.0) 11/28/20 06:24 Chloride 101.6 mmol/L (98-107) 11/28/20 06:24 Carbon Dioxide 28 mmol/L (22-30) 11/28/20 06:24 Anion Gap 10 mmol/L 11/28/20 06:24 BUN 15 mg/dL (9-20) 11/28/20 06:24 Creatinine 0.4 mg/dL (0.8-1.3) L 11/28/20 06:24 Estimated GFR > 60 ml/min 11/28/20 06:24 BUN/Creatinine Ratio 38 % 11/28/20 06:24 Glucose 124 mg/dL (75-100) H 11/28/20 06:24 POC Glucose 107 mg/dL (70-105) H 11/29/20 05:33 Hemoglobin A1c 5.5 % (4-6) 10/27/20 04:42 Lactic Acid 4.30 mmol/L (0.7-2.0) H* 10/31/20 Unknown Calcium 7.4 mg/dL (8.4-10.2) L 11/28/20 06:24 Phosphorus 4.50 mg/dL (2.5-4.5) D 11/06/20 13:03 Magnesium 1.70 mg/dL (1.7-2.3) 11/21/20 09:47 Total Bilirubin < 0.20 mg/dL (0.1-1.2) 11/27/20 05:55 AST 8 units/L (5-40) 11/27/20 05:55 ALT 8 units/L (7-56) 11/27/20 05:55 Alkaline Phosphatase 87 units/L (35-129) 11/27/20 05:55 Total Creatine Kinase 31 units/L (55-170) L 10/26/20 17:28 Troponin T 0.123 ng/mL (0.00-0.029) H* 11/13/20 23:15 Total Protein 6.1 g/dL (6.3-8.2) L 11/27/20 05:55 Albumin 1.7 g/dL (3.9-5) L 11/27/20 05:55 Albumin/Globulin Ratio 0.4 % 11/27/20 05:55 Triglycerides 190 mg/dL (2-149) H 10/26/20 17:25 Cholesterol 92 mg/dL (50-199) 10/26/20 17:25 LDL Cholesterol Direct 33 mg/dL (50-130) L 10/26/20 17:25 HDL Cholesterol 18 mg/dL (40-59) L 10/26/20 17:25 Cholesterol/HDL Ratio 5.11 % 10/26/20 17:25 Serotonin Release Assay See scanned results 11/03/20 11:01 TSH 1.490 mlU/mL (0.270-4.200) 10/26/20 17:28 Arterial Blood Glucose 130 mg/dL (65-95) H 11/28/20 03:56 Arterial Blood Ionized Calcium 4.5 mg/dL (4.6-5.3) L 11/28/20 03:56 Urine Color Yellow (Yellow) 10/27/20 Unknown Urine Turbidity Turbid (Clear) 10/27/20 Unknown Urine pH 8.0 (5.0-7.0) H 10/27/20 Unknown Ur Specific [place] 1.020 (1.003-1.030) 10/27/20 Unknown Urine Protein >500 mg/dL (Negative) 10/27/20 Unknown Urine Glucose (UA) Neg mg/dL (Negative) 10/27/20 Unknown Urine Ketones Neg mg/dL (Negative) 10/27/20 Unknown Urine Blood Sm (Negative) 10/27/20 Unknown Urine Nitrite Neg (Negative) 10/27/20 Unknown Urine Bilirubin Neg (Negative) 10/27/20 Unknown Urine Urobilinogen < 2.0 mg/dL (<2.0) 10/27/20 Unknown Ur Leukocyte Esterase Mod (Negative) 10/27/20 Unknown Urine WBC (Auto) > 182.0 /HPF (0.0-6.0) H 10/27/20 Unknown Urine RBC (Auto) 35.0 /HPF (0.0-6.0) 10/27/20 Unknown Urine WBC Clumps 3+ /HPF 10/27/20 Unknown Urine Mucus 3+ /HPF 10/27/20 Unknown Urine Yeast (Budding) 3+ /HPF 10/27/20 Unknown Vancomycin Trough 18.0 ug/mL (5.0-20.0) 11/19/20 09:06 Salicylates < 0.3 mg/dL (2.8-20.0) L 10/26/20 17:28 Acetaminophen 5.0 ug/mL (10.0-30.0) L 10/26/20 17:28 Heparin-induced Plt Ab Negative (Negative) 11/03/20 11:01 UF Heparin High Dose 0 % Release 11/03/20 11:01 MOISES UFH Low Dose 0.1 2 % Release 11/03/20 11:01 MOISES UFH Low Dose 0.5 0 % Release 11/03/20 11:01 Coronavirus (PCR) Negative (Negative) 10/27/20 Unknown Blood Type O POSITIVE 11/17/20 11:10 Antibody Screen Negative 11/17/20 11:10 Crossmatch See Detail 11/17/20 11:10 Rivas/IV: Voiding Method Indwelling Catheter Active Medications - Current Medications Current Medications: Generic Name Dose Route Start Last Admin Trade Name Freq PRN Reason Stop Dose Admin Acetaminophen 650 mg 10/26/20 22:22 11/27/20 20:28 Acetaminophen 325 Mg Tab PO 650 mg Q4H PRN Administration Pain MILD(1-3)/Fever >100.5/TIERNEY Albuterol 2.5 mg 11/11/20 14:00 11/29/20 08:35 Albuterol 2.5 Mg/3 Ml Nebu IH 2.5 mg TIDRT MARSHALL Administration Amiodarone HCl 200 mg 11/25/20 10:00 11/29/20 09:12 Amiodarone 200 Mg Tab PO 200 mg BID MARSHALL Administration Lipase/Protease/Amylase 1 each 10/28/20 13:18 Lipase 10,500/Protease 25,000/Amylase 43,750 (Units) Dr Cap FEEDTUBE PRN PRN For Clogged Feeding Tube Enoxaparin Sodium 40 mg 11/22/20 22:00 11/28/20 21:19 Enoxaparin 40 Mg/0.4 Ml Inj SUB-Q 40 mg QDAY@2200 MARSHALL Administration Protocol Famotidine 20 mg 11/24/20 22:00 11/29/20 09:12 Famotidine 20 Mg Tab PO 20 mg BID MARSHALL Administration Fentanyl 50 mcg 11/15/20 22:30 11/28/20 01:00 Fentanyl 100 Mcg/2 Ml Inj IV 50 mcg Q10MIN PRN Administration ANALGESIA Hydrophilic Ointment 1 applic 11/15/20 22:30 Lip Therapy Vaseline TP Q2HR PRN Dry Lips Norepinephrine 4 mg in 250 mls @ 7.5 mls/hr 11/15/20 23:45 11/17/20 01:37 Levophed Drip 4 Mg/Ns 250 Ml IV 0 mcg/min TITR MARSHALL 0 mls/hr Titration Protocol 2 MCG/MIN Metoprolol Tartrate 12.5 mg 11/26/20 12:00 11/29/20 06:23 Metoprolol Tartrate 25 Mg Tab PO 12.5 mg Q6HR MARSHALL Administration Midodrine 10 mg 11/06/20 12:00 11/29/20 08:14 Midodrine 5 Mg Tab PO 10 mg TID@0800,1200,1600 MARSHALL Administration Multi-Ingred Cream/Lotion/Oil/Oint 1 applic 11/15/20 22:30 Mineral Oil/Petrolatum, White Ophth Oint 3.5 Gm OU Q4HR PRN Dry Eye(s) Simple Syrup 15 ml 10/28/20 13:18 11/10/20 16:01 Simple Syrup 15 Ml FEEDTUBE 15 ml PRN PRN Administration Hypoglycemia Simple Syrup 30 ml 10/28/20 13:18 Simple Syrup 15 Ml FEEDTUBE PRN PRN Hypoglycemia Sodium Bicarbonate 325 mg 10/28/20 13:18 Sodium Bicarbonate 325 Mg Tab FEEDTUBE PRN PRN For Clogged Feeding Tube Sodium Hypochlorite 1 applic 10/28/20 10:00 11/29/20 09:12 Sodium Hypochlorite, [place]'s 1/2 Strength (0.25%) 473 Ml Topical Soln TP 1 applicatio BID MARSHALL Administration Nutrition/Malnutrition Assess - Dietary Evaluation Nutrition/Malnutrition Findings: Nutrition Notes Start: 10/27/20 09:15 Freq: Status: Active Protocol: Document 11/27/20 14:29 CW (Rec: 11/27/20 14:37 CW [id number]) Nutrition Notes Initial or Follow up Reassessment Current Diagnosis Acute Kidney Injury,Decubitus( Pressure Ulcer),Sepsis, Hypertension,Respiratory Failure,Hyperlipidemia Other Pertinent Diagnosis AMS, MRSA, Encephalopathy, Metabiloc Acidosis, pneu ,FTT Current Diet Vital AF at 70 ml/hr Labs/Tests reviewed Pertinent Medications reviewed Height 6 ft 2 in Weight 85 kg [place] Body Weight (kg) 86.36 BMI 24.0 Weight Status Obese Subjective/Other Information F/U for TF change, tolerance, and at goal. Pt remains on mechanical vent. TF Vital AF is running at goal of 70 ml/hr and is being well tolerated. No recent events of emesis Percent of energy/protein needs met: 100%/95% Burn Absent Trauma Absent GI Symptoms Diarrhea Difficulty In Swallowing,Chewing Skin Integrity/Comment Multiple pressure ulcer,1 infected Current % PO Negligible Minimum of two criteria No Fluid Accumulation Mild (non-severe) #2 Nutrition Diagnosis Increased nutrient needs ( specify in comment below) Diagnosis Progress(for reassessment Continues documentation) #1 Nutrition Diagnosis Inadequate oral intake Diagnosis Progress(for reassessment Continues documentation) Is patient on ventilator? Yes Is Patient Ambulatory and/or Out of Bed No REE-([facility]-confined to bed) 97 Calculation Used for Recommendations [facility] Additional Notes protein needs: 133 - 167g(1.2 - 1.5 g/kgAdBW 111) Fluid needs 1 ml/kcal Nutrition Intervention Change Diet Order: Continue Nutrition Support: Vital AF at 70 ml/hr with a free water flush of 115 ml q4h Kcal 2,016 Protein (gm) 126 Fluid (mL) 1,362 Goal #1 TF change and tolerance Goal #2 Meet at least 75% EER and protein needs via TF Goal #3 wound healing Anticipated Discharge Needs: TF Follow-Up By: 12/02/20 Additional Comments F/U for TF tolerance
--- NOTE | 2020-11-29 13:07 | Progress Note ---
Assessment and Plan Assessment and Plan Imp: 1. UTI/bacteremia 2. Aspiration/MRSA pneumonia 3. Severe sepsis 4. FAZAL 5. Acute respiratory failure, hypoxia 6. Hypernatremia 7. Poor airway clearance Rec: 1. Finished ABX; monitor closely; ID following 2. Cont. Albuterol nebs plus CPT vest 3. TFs 4. Transfuse if H/H less than 7.0/21.0 5. Lovenox and Pepcid for PPx 6. CXR reviewed no significant change possible fluid overload 7. Likely would benefit from more diuresis 8. PSV trials failed back on assist control. Wean ventilator as tolerated 9. LTAC placement pending 10. CCT 31 minutes Subjective Date of service: 11/29/20 Principal diagnosis: Acute Resp Fail, PNA, Septic Shock, Sacral Ulcer, AF with RVR Interval history: Patient awake and responsive. Could not tolerate PSV because of high respiratory rate. Back on assist control mode since yesterday. Objective Vital Signs - 12hr 11/29/20 11/29/20 11/29/20 01:30 02:00 02:30 Temperature Pulse Rate 95 H 102 H 100 H Pulse Rate [ Anterior Bilateral Throughout] Pulse Rate [ From Monitor] Respiratory 23 20 17 Rate Respiratory Rate [Anterior Bilateral Throughout] Blood Pressure 117/63 118/61 117/65 O2 Sat by Pulse 91 92 91 Oximetry O2 Sat by Pulse Oximetry [ Assessment] 11/29/20 11/29/20 11/29/20 03:00 03:30 04:00 Temperature 99.9 F H Pulse Rate 99 H 102 H 97 H Pulse Rate [ Anterior Bilateral Throughout] Pulse Rate [ 89 From Monitor] Respiratory 21 13 22 Rate Respiratory Rate [Anterior Bilateral Throughout] Blood Pressure 115/67 115/64 117/68 O2 Sat by Pulse 96 91 92 Oximetry O2 Sat by Pulse Oximetry [ Assessment] 11/29/20 11/29/20 11/29/20 04:30 05:00 05:30 Temperature Pulse Rate 110 H 106 H 104 H Pulse Rate [ Anterior Bilateral Throughout] Pulse Rate [ From Monitor] Respiratory 24 9 L 10 L Rate Respiratory Rate [Anterior Bilateral Throughout] Blood Pressure 115/62 124/75 126/69 O2 Sat by Pulse 93 91 94 Oximetry O2 Sat by Pulse Oximetry [ Assessment] 11/29/20 11/29/20 11/29/20 06:00 06:23 06:30 Temperature Pulse Rate 104 H 98 H 103 H Pulse Rate [ Anterior Bilateral Throughout] Pulse Rate [ From Monitor] Respiratory 21 24 Rate Respiratory Rate [Anterior Bilateral Throughout] Blood Pressure 130/77 130/77 140/79 O2 Sat by Pulse 94 93 Oximetry O2 Sat by Pulse Oximetry [ Assessment] 11/29/20 11/29/20 11/29/20 07:00 07:31 08:00 Temperature 98.7 F Pulse Rate 96 H 94 H 103 H Pulse Rate [ Anterior Bilateral Throughout] Pulse Rate [ 89 From Monitor] Respiratory 23 28 H 20 Rate Respiratory Rate [Anterior Bilateral Throughout] Blood Pressure 127/72 125/72 122/77 O2 Sat by Pulse 94 95 95 Oximetry O2 Sat by Pulse Oximetry [ Assessment] 11/29/20 11/29/20 11/29/20 08:30 08:49 08:51 Temperature Pulse Rate 92 H 97 H Pulse Rate [ 96 H Anterior Bilateral Throughout] Pulse Rate [ From Monitor] Respiratory 20 31 H Rate Respiratory 32 H Rate [Anterior Bilateral Throughout] Blood Pressure 120/74 120/74 O2 Sat by Pulse 96 96 Oximetry O2 Sat by Pulse Oximetry [ Assessment] 11/29/20 11/29/20 11/29/20 08:55 09:00 09:30 Temperature Pulse Rate 91 H 104 H Pulse Rate [ Anterior Bilateral Throughout] Pulse Rate [ From Monitor] Respiratory 25 H 21 Rate Respiratory Rate [Anterior Bilateral Throughout] Blood Pressure 129/78 133/82 O2 Sat by Pulse 94 93 Oximetry O2 Sat by Pulse 97 Oximetry [ Assessment] 11/29/20 11/29/20 11/29/20 10:00 10:31 11:00 Temperature Pulse Rate 106 H 110 H 106 H Pulse Rate [ Anterior Bilateral Throughout] Pulse Rate [ From Monitor] Respiratory 20 22 34 H Rate Respiratory Rate [Anterior Bilateral Throughout] Blood Pressure 128/81 147/88 129/71 O2 Sat by Pulse 91 89 92 Oximetry O2 Sat by Pulse Oximetry [ Assessment] 11/29/20 11/29/20 11/29/20 11:30 11:58 12:00 Temperature 98.8 F Pulse Rate 100 H 98 H 104 H Pulse Rate [ Anterior Bilateral Throughout] Pulse Rate [ 89 From Monitor] Respiratory 32 H 31 H 21 Rate Respiratory Rate [Anterior Bilateral Throughout] Blood Pressure 118/69 118/69 117/76 O2 Sat by Pulse 93 96 95 Oximetry O2 Sat by Pulse Oximetry [ Assessment] Constitutional: alert, other (trach on vent) Eyes: non-icteric ENT: oropharynx moist Neck: supple Effort: normal Ascultation: Bilateral: clear, rhonchi Percussion: Bilateral: not dull Cardiovascular: regular rate and rhythm (no mrg) Gastrointestinal: normoactive bowel sounds, soft, non-tender Extremities: no cyanosis, cool, anasarca Neurologic: normal mental status, non-focal exam Psychiatric: mood appropriate, affect normal CBC and BMP: 11/27/20 05:55 11/28/20 06:24 ABG, PT/INR, D-dimer: ABG ABG pH 7.515 (7.320-7.450) H 11/28/20 03:56 POC ABG pCO2 38.5 mmHg (32.0-48.0) 11/28/20 03:56 ABG pCO2 43.4 mm Hg 11/19/20 Unknown POC ABG pO2 74.5 mmHg (83-108) L 11/28/20 03:56 ABG pO2 72.4 mm Hg (80.0-90.0) L 11/19/20 Unknown POC ABG HCO3 30.4 11/28/20 03:56 ABG O2 Saturation 95.8 (0-100) 11/28/20 03:56 PT/INR, D-dimer PT 14.7 Sec. (12.2-14.9) 11/19/20 06:36 INR 1.15 (0.87-1.13) H 11/19/20 06:36 Abnormal lab findings: Abnormal Labs 10/26/20 10/26/20 10/26/20 17:25 17:25 17:25 WBC 23.3 H RBC 3.10 L Hgb 9.6 L Hct 30.3 L MCV 98 H MCH MCHC RDW 17.4 H Plt Count 521 H Lymph % (Auto) Seg Neutrophils % Seg Neuts % (Manual) 78.0 H Lymphocytes % (Manual) 11.0 L Nucleated RBC % Seg Neutrophils # Seg Neutrophils # Man 18.2 H Lymphocytes # (Manual) Monocytes # (Manual) 1.4 H PT INR ABG pH POC ABG pCO2 POC ABG pO2 ABG pO2 ABG HCO3 ABG O2 Saturation ABG Base Excess ABG Hemoglobin ABG Oxyhemoglobin ABG Sodium ABG Potassium ABG Chloride ABG Glucose Oxyhemoglobin Carboxyhemoglobin Sodium 148 H Potassium Chloride 109.3 H Carbon Dioxide 19 L BUN 57 H Creatinine 1.5 H Glucose 151 H POC Glucose Lactic Acid 9.60 H* Calcium Phosphorus Magnesium Total Creatine Kinase Troponin T 0.062 H Total Protein Albumin 1.7 L Triglycerides 190 H LDL Cholesterol Direct 33 L HDL Cholesterol 18 L Arterial Blood Glucose Arterial Blood Ionized Calcium Urine pH Urine WBC (Auto) Vancomycin Trough Salicylates Acetaminophen Crossmatch 10/26/20 10/26/20 10/26/20 17:28 17:28 17:28 WBC RBC Hgb Hct MCV MCH MCHC RDW Plt Count Lymph % (Auto) Seg Neutrophils % Seg Neuts % (Manual) Lymphocytes % (Manual) Nucleated RBC % Seg Neutrophils # Seg Neutrophils # Man Lymphocytes # (Manual) Monocytes # (Manual) PT INR ABG pH POC ABG pCO2 POC ABG pO2 ABG pO2 ABG HCO3 ABG O2 Saturation ABG Base Excess ABG Hemoglobin ABG Oxyhemoglobin ABG Sodium ABG Potassium ABG Chloride ABG Glucose Oxyhemoglobin Carboxyhemoglobin Sodium Potassium Chloride Carbon Dioxide BUN Creatinine Glucose POC Glucose Lactic Acid Calcium Phosphorus Magnesium Total Creatine Kinase 31 L Troponin T Total Protein Albumin Triglycerides LDL Cholesterol Direct HDL Cholesterol Arterial Blood Glucose Arterial Blood Ionized Calcium Urine pH Urine WBC (Auto) Vancomycin Trough Salicylates < 0.3 L Acetaminophen 5.0 L Crossmatch 10/26/20 10/26/20 10/26/20 17:30 20:11 22:00 WBC RBC Hgb Hct MCV MCH MCHC RDW Plt Count Lymph % (Auto) Seg Neutrophils % Seg Neuts % (Manual) Lymphocytes % (Manual) Nucleated RBC % Seg Neutrophils # Seg Neutrophils # Man Lymphocytes # (Manual) Monocytes # (Manual) PT INR ABG pH 7.235 L POC ABG pCO2 POC ABG pO2 ABG pO2 312.4 H ABG HCO3 16.4 L ABG O2 Saturation 99.5 H ABG Base Excess -10.4 L ABG Hemoglobin 11.0 L ABG Oxyhemoglobin ABG Sodium ABG Potassium ABG Chloride ABG Glucose Oxyhemoglobin Carboxyhemoglobin Sodium Potassium Chloride Carbon Dioxide BUN Creatinine Glucose POC Glucose Lactic Acid 7.70 H* 6.40 H* Calcium Phosphorus Magnesium Total Creatine Kinase Troponin T Total Protein Albumin Triglycerides LDL Cholesterol Direct HDL Cholesterol Arterial Blood Glucose Arterial Blood Ionized Calcium Urine pH Urine WBC (Auto) Vancomycin Trough Salicylates Acetaminophen Crossmatch 10/27/20 10/27/20 10/27/20 03:25 03:30 04:00 WBC 20.3 H RBC 3.10 L Hgb 9.6 L Hct 30.6 L MCV 99 H MCH MCHC 31 L RDW 16.9 H Plt Count Lymph % (Auto) Seg Neutrophils % Seg Neuts % (Manual) Lymphocytes % (Manual) Nucleated RBC % Seg Neutrophils # Seg Neutrophils # Man 11.6 H Lymphocytes # (Manual) Monocytes # (Manual) PT INR ABG pH 7.218 L POC ABG pCO2 POC ABG pO2 62.9 L ABG pO2 ABG HCO3 ABG O2 Saturation ABG Base Excess ABG Hemoglobin 10.6 L ABG Oxyhemoglobin 86.6 L ABG Sodium ABG Potassium 4.8 H ABG Chloride 114.0 H ABG Glucose 116 H Oxyhemoglobin Carboxyhemoglobin 0.4 L Sodium Potassium Chloride 110.2 H Carbon Dioxide 17 L BUN 55 H Creatinine 1.5 H Glucose 109 H POC Glucose Lactic Acid Calcium 7.9 L Phosphorus Magnesium Total Creatine Kinase Troponin T Total Protein Albumin 1.3 L Triglycerides LDL Cholesterol Direct HDL Cholesterol Arterial Blood Glucose 116 H Arterial Blood Ionized Calcium Urine pH Urine WBC (Auto) Vancomycin Trough Salicylates Acetaminophen Crossmatch 10/27/20 10/28/20 10/28/20 Unknown 00:40 00:40 WBC 23.1 H RBC 2.42 L Hgb 7.5 L Hct 23.7 L D MCV 98 H MCH MCHC RDW 16.8 H Plt Count Lymph % (Auto) Seg Neutrophils % Seg Neuts % (Manual) Lymphocytes % (Manual) Nucleated RBC % Seg Neutrophils # Seg Neutrophils # Man Lymphocytes # (Manual) Monocytes # (Manual) PT INR ABG pH POC ABG pCO2 POC ABG pO2 ABG pO2 ABG HCO3 ABG O2 Saturation ABG Base Excess ABG Hemoglobin ABG Oxyhemoglobin ABG Sodium ABG Potassium ABG Chloride ABG Glucose Oxyhemoglobin Carboxyhemoglobin Sodium Potassium Chloride 111.4 H Carbon Dioxide 19 L BUN 49 H Creatinine Glucose POC Glucose Lactic Acid Calcium 7.3 L Phosphorus Magnesium 1.40 L Total Creatine Kinase Troponin T Total Protein 5.8 L Albumin 1.2 L Triglycerides LDL Cholesterol Direct HDL Cholesterol Arterial Blood Glucose Arterial Blood Ionized Calcium Urine pH 8.0 H Urine WBC (Auto) > 182.0 H Vancomycin Trough Salicylates Acetaminophen Crossmatch 10/28/20 10/28/20 10/28/20 03:30 05:36 05:36 WBC RBC Hgb Hct MCV MCH MCHC RDW Plt Count Lymph % (Auto) Seg Neutrophils % Seg Neuts % (Manual) Lymphocytes % (Manual) Nucleated RBC % Seg Neutrophils # Seg Neutrophils # Man Lymphocytes # (Manual) Monocytes # (Manual) PT INR ABG pH 7.175 L POC ABG pCO2 POC ABG pO2 71.5 L ABG pO2 ABG HCO3 ABG O2 Saturation ABG Base Excess ABG Hemoglobin 8.8 L ABG Oxyhemoglobin ABG Sodium ABG Potassium 4.7 H ABG Chloride 114.0 H ABG Glucose 100 H Oxyhemoglobin Carboxyhemoglobin Sodium Potassium Chloride 114.6 H Carbon Dioxide 15 L BUN 48 H Creatinine 1.4 H Glucose POC Glucose Lactic Acid 7.60 H* Calcium 7.7 L Phosphorus Magnesium Total Creatine Kinase Troponin T Total Protein Albumin Triglycerides LDL Cholesterol Direct HDL Cholesterol Arterial Blood Glucose 100 H Arterial Blood Ionized Calcium 4.4 L Urine pH Urine WBC (Auto) Vancomycin Trough Salicylates Acetaminophen Crossmatch 10/28/20 10/28/20 10/29/20 17:18 23:18 03:50 WBC RBC Hgb Hct MCV MCH MCHC RDW Plt Count Lymph % (Auto) Seg Neutrophils % Seg Neuts % (Manual) Lymphocytes % (Manual) Nucleated RBC % Seg Neutrophils # Seg Neutrophils # Man Lymphocytes # (Manual) Monocytes # (Manual) PT INR ABG pH POC ABG pCO2 30.0 L POC ABG pO2 ABG pO2 ABG HCO3 ABG O2 Saturation ABG Base Excess ABG Hemoglobin 8.1 L ABG Oxyhemoglobin ABG Sodium ABG Potassium ABG Chloride 113.0 H ABG Glucose 153 H Oxyhemoglobin Carboxyhemoglobin 0.4 L Sodium Potassium Chloride Carbon Dioxide BUN Creatinine Glucose POC Glucose 134 H 149 H Lactic Acid Calcium Phosphorus Magnesium Total Creatine Kinase Troponin T Total Protein Albumin Triglycerides LDL Cholesterol Direct HDL Cholesterol Arterial Blood Glucose 153 H Arterial Blood Ionized Calcium 4.1 L Urine pH Urine WBC (Auto) Vancomycin Trough Salicylates Acetaminophen Crossmatch 10/29/20 10/29/20 10/29/20 05:09 05:15 05:15 WBC 23.9 H RBC 2.66 L Hgb 8.3 L Hct 26.3 L MCV 99 H MCH MCHC RDW 17.5 H Plt Count Lymph % (Auto) Seg Neutrophils % Seg Neuts % (Manual) Lymphocytes % (Manual) Nucleated RBC % Seg Neutrophils # Seg Neutrophils # Man Lymphocytes # (Manual) Monocytes # (Manual) PT INR ABG pH POC ABG pCO2 POC ABG pO2 ABG pO2 ABG HCO3 ABG O2 Saturation ABG Base Excess ABG Hemoglobin ABG Oxyhemoglobin ABG Sodium ABG Potassium ABG Chloride ABG Glucose Oxyhemoglobin Carboxyhemoglobin Sodium Potassium Chloride 110.4 H Carbon Dioxide 15 L BUN 40 H Creatinine Glucose 140 H POC Glucose 123 H Lactic Acid Calcium 7.0 L Phosphorus Magnesium Total Creatine Kinase Troponin T Total Protein 6.0 L Albumin 1.0 L Triglycerides LDL Cholesterol Direct HDL Cholesterol Arterial Blood Glucose Arterial Blood Ionized Calcium Urine pH Urine WBC (Auto) Vancomycin Trough Salicylates Acetaminophen Crossmatch 10/29/20 10/29/20 10/29/20 05:15 10:37 11:41 WBC RBC Hgb Hct MCV MCH MCHC RDW Plt Count Lymph % (Auto) Seg Neutrophils % Seg Neuts % (Manual) Lymphocytes % (Manual) Nucleated RBC % Seg Neutrophils # Seg Neutrophils # Man Lymphocytes # (Manual) Monocytes # (Manual) PT INR ABG pH POC ABG pCO2 POC ABG pO2 ABG pO2 ABG HCO3 ABG O2 Saturation ABG Base Excess ABG Hemoglobin ABG Oxyhemoglobin ABG Sodium ABG Potassium ABG Chloride ABG Glucose Oxyhemoglobin Carboxyhemoglobin Sodium Potassium Chloride Carbon Dioxide BUN Creatinine Glucose POC Glucose 121 H Lactic Acid 9.90 H* 10.90 H* Calcium Phosphorus Magnesium Total Creatine Kinase Troponin T Total Protein Albumin Triglycerides LDL Cholesterol Direct HDL Cholesterol Arterial Blood Glucose Arterial Blood Ionized Calcium Urine pH Urine WBC (Auto) Vancomycin Trough Salicylates Acetaminophen Crossmatch 10/29/20 10/29/20 10/30/20 15:56 23:24 02:26 WBC RBC Hgb Hct MCV MCH MCHC RDW Plt Count Lymph % (Auto) Seg Neutrophils % Seg Neuts % (Manual) Lymphocytes % (Manual) Nucleated RBC % Seg Neutrophils # Seg Neutrophils # Man Lymphocytes # (Manual) Monocytes # (Manual) PT INR ABG pH POC ABG pCO2 POC ABG pO2 76.6 L ABG pO2 ABG HCO3 ABG O2 Saturation ABG Base Excess ABG Hemoglobin 6.4 L ABG Oxyhemoglobin 93.8 L ABG Sodium ABG Potassium 2.9 L ABG Chloride 110.0 H ABG Glucose 212 H Oxyhemoglobin Carboxyhemoglobin Sodium Potassium Chloride Carbon Dioxide BUN Creatinine Glucose POC Glucose 132 H 175 H Lactic Acid Calcium Phosphorus Magnesium Total Creatine Kinase Troponin T Total Protein Albumin Triglycerides LDL Cholesterol Direct HDL Cholesterol Arterial Blood Glucose 212 H Arterial Blood Ionized Calcium 3.9 L Urine pH Urine WBC (Auto) Vancomycin Trough Salicylates Acetaminophen Crossmatch 10/30/20 10/30/20 10/30/20 04:54 04:54 05:14 WBC 20.7 H RBC 2.28 L Hgb 7.0 L Hct 21.9 L MCV 96 H MCH MCHC RDW 17.0 H Plt Count 90 L Lymph % (Auto) Seg Neutrophils % Seg Neuts % (Manual) Lymphocytes % (Manual) Nucleated RBC % Seg Neutrophils # Seg Neutrophils # Man Lymphocytes # (Manual) Monocytes # (Manual) PT INR ABG pH POC ABG pCO2 POC ABG pO2 ABG pO2 ABG HCO3 ABG O2 Saturation ABG Base Excess ABG Hemoglobin ABG Oxyhemoglobin ABG Sodium ABG Potassium ABG Chloride ABG Glucose Oxyhemoglobin Carboxyhemoglobin Sodium Potassium 3.0 L D Chloride Carbon Dioxide BUN 28 H Creatinine 0.6 L Glucose 214 H POC Glucose 187 H Lactic Acid Calcium 6.2 L Phosphorus Magnesium Total Creatine Kinase Troponin T Total Protein Albumin Triglycerides LDL Cholesterol Direct HDL Cholesterol Arterial Blood Glucose Arterial Blood Ionized Calcium Urine pH Urine WBC (Auto) Vancomycin Trough Salicylates Acetaminophen Crossmatch 10/30/20 10/30/20 10/30/20 09:30 11:40 17:51 WBC RBC Hgb Hct MCV MCH MCHC RDW Plt Count Lymph % (Auto) Seg Neutrophils % Seg Neuts % (Manual) Lymphocytes % (Manual) Nucleated RBC % Seg Neutrophils # Seg Neutrophils # Man Lymphocytes # (Manual) Monocytes # (Manual) PT INR ABG pH POC ABG pCO2 POC ABG pO2 ABG pO2 ABG HCO3 ABG O2 Saturation ABG Base Excess ABG Hemoglobin ABG Oxyhemoglobin ABG Sodium ABG Potassium ABG Chloride ABG Glucose Oxyhemoglobin Carboxyhemoglobin Sodium Potassium Chloride Carbon Dioxide BUN Creatinine Glucose POC Glucose 183 H 136 H Lactic Acid Calcium Phosphorus Magnesium Total Creatine Kinase Troponin T Total Protein Albumin Triglycerides LDL Cholesterol Direct HDL Cholesterol Arterial Blood Glucose Arterial Blood Ionized Calcium Urine pH Urine WBC (Auto) Vancomycin Trough Salicylates Acetaminophen Crossmatch See Detail 10/30/20 10/30/20 10/30/20 18:53 23:25 Unknown WBC RBC Hgb Hct MCV MCH MCHC RDW Plt Count Lymph % (Auto) Seg Neutrophils % Seg Neuts % (Manual) Lymphocytes % (Manual) Nucleated RBC % Seg Neutrophils # Seg Neutrophils # Man Lymphocytes # (Manual) Monocytes # (Manual) PT INR ABG pH POC ABG pCO2 POC ABG pO2 ABG pO2 ABG HCO3 ABG O2 Saturation ABG Base Excess ABG Hemoglobin ABG Oxyhemoglobin ABG Sodium ABG Potassium ABG Chloride ABG Glucose Oxyhemoglobin Carboxyhemoglobin Sodium Potassium Chloride Carbon Dioxide BUN Creatinine Glucose POC Glucose 130 H Lactic Acid Calcium Phosphorus Magnesium Total Creatine Kinase Troponin T Total Protein Albumin Triglycerides LDL Cholesterol Direct HDL Cholesterol Arterial Blood Glucose Arterial Blood Ionized Calcium Urine pH Urine WBC (Auto) Vancomycin Trough 21.4 H 22.0 H Salicylates Acetaminophen Crossmatch 10/30/20 10/31/20 10/31/20 Unknown 02:54 03:42 WBC 21.1 H 23.0 H RBC 2.36 L Hgb 7.3 L 11.4 L D Hct 22.7 L 34.1 L D MCV 96 H MCH MCHC RDW 17.1 H 16.2 H Plt Count 73 L 33 L Lymph % (Auto) Seg Neutrophils % Seg Neuts % (Manual) Lymphocytes % (Manual) Nucleated RBC % Seg Neutrophils # Seg Neutrophils # Man Lymphocytes # (Manual) Monocytes # (Manual) PT INR ABG pH 7.517 H POC ABG pCO2 25.7 L POC ABG pO2 52.3 L ABG pO2 ABG HCO3 ABG O2 Saturation ABG Base Excess ABG Hemoglobin ABG Oxyhemoglobin 90.8 L ABG Sodium ABG Potassium ABG Chloride 109.0 H ABG Glucose 147 H Oxyhemoglobin Carboxyhemoglobin Sodium Potassium Chloride Carbon Dioxide BUN Creatinine Glucose POC Glucose Lactic Acid Calcium Phosphorus Magnesium Total Creatine Kinase Troponin T Total Protein Albumin Triglycerides LDL Cholesterol Direct HDL Cholesterol Arterial Blood Glucose 147 H Arterial Blood Ionized Calcium 4.0 L Urine pH Urine WBC (Auto) Vancomycin Trough Salicylates Acetaminophen Crossmatch 10/31/20 10/31/20 10/31/20 04:37 04:37 05:08 WBC 21.7 H RBC Hgb Hct MCV MCH MCHC RDW 16.1 H Plt Count 39 L Lymph % (Auto) Seg Neutrophils % Seg Neuts % (Manual) Lymphocytes % (Manual) Nucleated RBC % Seg Neutrophils # Seg Neutrophils # Man Lymphocytes # (Manual) Monocytes # (Manual) PT INR ABG pH POC ABG pCO2 POC ABG pO2 ABG pO2 ABG HCO3 ABG O2 Saturation ABG Base Excess ABG Hemoglobin ABG Oxyhemoglobin ABG Sodium ABG Potassium ABG Chloride ABG Glucose Oxyhemoglobin Carboxyhemoglobin Sodium Potassium Chloride 108.4 H Carbon Dioxide BUN 25 H Creatinine 0.5 L Glucose 140 H POC Glucose 140 H Lactic Acid Calcium 6.1 L Phosphorus Magnesium 1.50 L Total Creatine Kinase Troponin T Total Protein Albumin Triglycerides LDL Cholesterol Direct HDL Cholesterol Arterial Blood Glucose Arterial Blood Ionized Calcium Urine pH Urine WBC (Auto) Vancomycin Trough Salicylates Acetaminophen Crossmatch 10/31/20 10/31/20 10/31/20 11:12 18:50 23:21 WBC RBC Hgb Hct MCV MCH MCHC RDW Plt Count Lymph % (Auto) Seg Neutrophils % Seg Neuts % (Manual) Lymphocytes % (Manual) Nucleated RBC % Seg Neutrophils # Seg Neutrophils # Man Lymphocytes # (Manual) Monocytes # (Manual) PT INR ABG pH POC ABG pCO2 POC ABG pO2 ABG pO2 ABG HCO3 ABG O2 Saturation ABG Base Excess ABG Hemoglobin ABG Oxyhemoglobin ABG Sodium ABG Potassium ABG Chloride ABG Glucose Oxyhemoglobin Carboxyhemoglobin Sodium Potassium Chloride Carbon Dioxide BUN Creatinine Glucose POC Glucose 125 H 142 H 127 H Lactic Acid Calcium Phosphorus Magnesium Total Creatine Kinase Troponin T Total Protein Albumin Triglycerides LDL Cholesterol Direct HDL Cholesterol Arterial Blood Glucose Arterial Blood Ionized Calcium Urine pH Urine WBC (Auto) Vancomycin Trough Salicylates Acetaminophen Crossmatch 10/31/20 11/01/20 11/01/20 Unknown 03:40 04:21 WBC RBC Hgb Hct MCV MCH MCHC RDW Plt Count Lymph % (Auto) Seg Neutrophils % Seg Neuts % (Manual) Lymphocytes % (Manual) Nucleated RBC % Seg Neutrophils # Seg Neutrophils # Man Lymphocytes # (Manual) Monocytes # (Manual) PT INR ABG pH 7.489 H POC ABG pCO2 POC ABG pO2 ABG pO2 77.2 L ABG HCO3 ABG O2 Saturation ABG Base Excess ABG Hemoglobin 7.1 L ABG Oxyhemoglobin ABG Sodium ABG Potassium ABG Chloride ABG Glucose Oxyhemoglobin Carboxyhemoglobin Sodium Potassium 3.1 L Chloride 107.1 H Carbon Dioxide BUN 25 H Creatinine 0.5 L Glucose 148 H POC Glucose Lactic Acid 4.30 H* Calcium 6.0 L Phosphorus Magnesium Total Creatine Kinase Troponin T Total Protein Albumin Triglycerides LDL Cholesterol Direct HDL Cholesterol Arterial Blood Glucose Arterial Blood Ionized Calcium Urine pH Urine WBC (Auto) Vancomycin Trough Salicylates Acetaminophen Crossmatch 11/01/20 11/01/20 11/01/20 05:13 11:42 17:38 WBC RBC Hgb Hct MCV MCH MCHC RDW Plt Count Lymph % (Auto) Seg Neutrophils % Seg Neuts % (Manual) Lymphocytes % (Manual) Nucleated RBC % Seg Neutrophils # Seg Neutrophils # Man Lymphocytes # (Manual) Monocytes # (Manual) PT INR ABG pH POC ABG pCO2 POC ABG pO2 ABG pO2 ABG HCO3 ABG O2 Saturation ABG Base Excess ABG Hemoglobin ABG Oxyhemoglobin ABG Sodium ABG Potassium ABG Chloride ABG Glucose Oxyhemoglobin Carboxyhemoglobin Sodium Potassium Chloride Carbon Dioxide BUN Creatinine Glucose POC Glucose 139 H 139 H 161 H Lactic Acid Calcium Phosphorus Magnesium Total Creatine Kinase Troponin T Total Protein Albumin Triglycerides LDL Cholesterol Direct HDL Cholesterol Arterial Blood Glucose Arterial Blood Ionized Calcium Urine pH Urine WBC (Auto) Vancomycin Trough Salicylates Acetaminophen Crossmatch 11/01/20 11/01/20 11/02/20 23:20 Unknown 04:30 WBC 18.2 H RBC 3.27 L Hgb 9.9 L Hct 30.1 L D MCV MCH MCHC RDW 15.7 H Plt Count 34 L Lymph % (Auto) Seg Neutrophils % Seg Neuts % (Manual) Lymphocytes % (Manual) Nucleated RBC % Seg Neutrophils # Seg Neutrophils # Man Lymphocytes # (Manual) Monocytes # (Manual) PT INR ABG pH 7.456 H POC ABG pCO2 POC ABG pO2 ABG pO2 ABG HCO3 ABG O2 Saturation ABG Base Excess ABG Hemoglobin 9.2 L ABG Oxyhemoglobin ABG Sodium ABG Potassium ABG Chloride ABG Glucose Oxyhemoglobin Carboxyhemoglobin Sodium Potassium Chloride Carbon Dioxide BUN Creatinine Glucose POC Glucose 168 H Lactic Acid Calcium Phosphorus Magnesium Total Creatine Kinase Troponin T Total Protein Albumin Triglycerides LDL Cholesterol Direct HDL Cholesterol Arterial Blood Glucose Arterial Blood Ionized Calcium Urine pH Urine WBC (Auto) Vancomycin Trough Salicylates Acetaminophen Crossmatch 11/02/20 11/02/20 11/02/20 06:29 08:40 08:40 WBC 16.6 H RBC 2.87 L Hgb 8.8 L Hct 26.6 L MCV MCH MCHC RDW 15.8 H Plt Count 30 L Lymph % (Auto) Seg Neutrophils % Seg Neuts % (Manual) 97.0 H Lymphocytes % (Manual) 2.0 L Nucleated RBC % 1.0 H Seg Neutrophils # Seg Neutrophils # Man 16.1 H Lymphocytes # (Manual) 0.3 L Monocytes # (Manual) PT INR ABG pH POC ABG pCO2 POC ABG pO2 ABG pO2 ABG HCO3 ABG O2 Saturation ABG Base Excess ABG Hemoglobin ABG Oxyhemoglobin ABG Sodium ABG Potassium ABG Chloride ABG Glucose Oxyhemoglobin Carboxyhemoglobin Sodium Potassium 2.4 L* D Chloride 110.2 H Carbon Dioxide BUN 23 H Creatinine 0.4 L Glucose 154 H POC Glucose 131 H Lactic Acid Calcium 6.1 L Phosphorus Magnesium 1.50 L Total Creatine Kinase Troponin T Total Protein Albumin Triglycerides LDL Cholesterol Direct HDL Cholesterol Arterial Blood Glucose Arterial Blood Ionized Calcium Urine pH Urine WBC (Auto) Vancomycin Trough Salicylates Acetaminophen Crossmatch 11/02/20 11/02/20 11/02/20 13:17 17:25 18:05 WBC RBC Hgb Hct MCV MCH MCHC RDW Plt Count Lymph % (Auto) Seg Neutrophils % Seg Neuts % (Manual) Lymphocytes % (Manual) Nucleated RBC % Seg Neutrophils # Seg Neutrophils # Man Lymphocytes # (Manual) Monocytes # (Manual) PT INR ABG pH POC ABG pCO2 POC ABG pO2 ABG pO2 ABG HCO3 ABG O2 Saturation ABG Base Excess ABG Hemoglobin ABG Oxyhemoglobin ABG Sodium ABG Potassium ABG Chloride ABG Glucose Oxyhemoglobin Carboxyhemoglobin Sodium Potassium 3.1 L D Chloride Carbon Dioxide BUN Creatinine Glucose POC Glucose 134 H 140 H Lactic Acid Calcium Phosphorus Magnesium Total Creatine Kinase Troponin T Total Protein Albumin Triglycerides LDL Cholesterol Direct HDL Cholesterol Arterial Blood Glucose Arterial Blood Ionized Calcium Urine pH Urine WBC (Auto) Vancomycin Trough Salicylates Acetaminophen Crossmatch 11/02/20 11/03/20 11/03/20 23:36 04:15 05:07 WBC RBC Hgb Hct MCV MCH MCHC RDW Plt Count Lymph % (Auto) Seg Neutrophils % Seg Neuts % (Manual) Lymphocytes % (Manual) Nucleated RBC % Seg Neutrophils # Seg Neutrophils # Man Lymphocytes # (Manual) Monocytes # (Manual) PT INR ABG pH POC ABG pCO2 POC ABG pO2 ABG pO2 ABG HCO3 ABG O2 Saturation ABG Base Excess ABG Hemoglobin ABG Oxyhemoglobin ABG Sodium ABG Potassium ABG Chloride ABG Glucose Oxyhemoglobin Carboxyhemoglobin Sodium Potassium 3.0 L Chloride 111.8 H Carbon Dioxide BUN 24 H Creatinine 0.3 L Glucose 141 H POC Glucose 127 H 156 H Lactic Acid Calcium 5.8 L* Phosphorus Magnesium 1.60 L Total Creatine Kinase Troponin T Total Protein Albumin Triglycerides LDL Cholesterol Direct HDL Cholesterol Arterial Blood Glucose Arterial Blood Ionized Calcium Urine pH Urine WBC (Auto) Vancomycin Trough Salicylates Acetaminophen Crossmatch 11/03/20 11/03/20 11/04/20 11:14 17:31 00:17 WBC RBC Hgb Hct MCV MCH MCHC RDW Plt Count Lymph % (Auto) Seg Neutrophils % Seg Neuts % (Manual) Lymphocytes % (Manual) Nucleated RBC % Seg Neutrophils # Seg Neutrophils # Man Lymphocytes # (Manual) Monocytes # (Manual) PT INR ABG pH POC ABG pCO2 POC ABG pO2 ABG pO2 ABG HCO3 ABG O2 Saturation ABG Base Excess ABG Hemoglobin ABG Oxyhemoglobin ABG Sodium ABG Potassium ABG Chloride ABG Glucose Oxyhemoglobin Carboxyhemoglobin Sodium Potassium Chloride Carbon Dioxide BUN Creatinine Glucose POC Glucose 137 H 151 H 156 H Lactic Acid Calcium Phosphorus Magnesium Total Creatine Kinase Troponin T Total Protein Albumin Triglycerides LDL Cholesterol Direct HDL Cholesterol Arterial Blood Glucose Arterial Blood Ionized Calcium Urine pH Urine WBC (Auto) Vancomycin Trough Salicylates Acetaminophen Crossmatch 11/04/20 11/04/20 11/04/20 05:34 05:34 11:16 WBC 21.9 H RBC 2.67 L Hgb 8.2 L Hct 24.8 L MCV MCH MCHC RDW 15.6 H Plt Count 48 L Lymph % (Auto) Seg Neutrophils % Seg Neuts % (Manual) Lymphocytes % (Manual) Nucleated RBC % Seg Neutrophils # Seg Neutrophils # Man Lymphocytes # (Manual) Monocytes # (Manual) PT INR ABG pH POC ABG pCO2 POC ABG pO2 ABG pO2 ABG HCO3 ABG O2 Saturation ABG Base Excess ABG Hemoglobin ABG Oxyhemoglobin ABG Sodium ABG Potassium ABG Chloride ABG Glucose Oxyhemoglobin Carboxyhemoglobin Sodium 146 H Potassium Chloride 114.6 H Carbon Dioxide BUN 29 H Creatinine 0.3 L Glucose 173 H POC Glucose 156 H Lactic Acid Calcium 5.7 L* Phosphorus Magnesium Total Creatine Kinase Troponin T Total Protein Albumin Triglycerides LDL Cholesterol Direct HDL Cholesterol Arterial Blood Glucose Arterial Blood Ionized Calcium Urine pH Urine WBC (Auto) Vancomycin Trough Salicylates Acetaminophen Crossmatch 11/04/20 11/04/20 11/04/20 11:42 17:18 23:12 WBC RBC Hgb Hct MCV MCH MCHC RDW Plt Count Lymph % (Auto) Seg Neutrophils % Seg Neuts % (Manual) Lymphocytes % (Manual) Nucleated RBC % Seg Neutrophils # Seg Neutrophils # Man Lymphocytes # (Manual) Monocytes # (Manual) PT INR ABG pH 7.525 H POC ABG pCO2 28.9 L POC ABG pO2 64.3 L ABG pO2 ABG HCO3 ABG O2 Saturation ABG Base Excess ABG Hemoglobin 8.2 L ABG Oxyhemoglobin ABG Sodium ABG Potassium 3.3 L ABG Chloride 115.0 H ABG Glucose 165 H Oxyhemoglobin Carboxyhemoglobin Sodium Potassium Chloride Carbon Dioxide BUN Creatinine Glucose POC Glucose 144 H 155 H Lactic Acid Calcium Phosphorus Magnesium Total Creatine Kinase Troponin T Total Protein Albumin Triglycerides LDL Cholesterol Direct HDL Cholesterol Arterial Blood Glucose 165 H Arterial Blood Ionized Calcium 4.0 L Urine pH Urine WBC (Auto) Vancomycin Trough Salicylates Acetaminophen Crossmatch 11/05/20 11/05/20 11/05/20 04:48 04:48 05:57 WBC 17.4 H RBC 2.49 L Hgb 7.8 L Hct 23.5 L MCV MCH MCHC RDW 16.0 H Plt Count 69 L Lymph % (Auto) Seg Neutrophils % Seg Neuts % (Manual) Lymphocytes % (Manual) Nucleated RBC % Seg Neutrophils # Seg Neutrophils # Man Lymphocytes # (Manual) Monocytes # (Manual) PT INR ABG pH POC ABG pCO2 POC ABG pO2 ABG pO2 ABG HCO3 ABG O2 Saturation ABG Base Excess ABG Hemoglobin ABG Oxyhemoglobin ABG Sodium ABG Potassium ABG Chloride ABG Glucose Oxyhemoglobin Carboxyhemoglobin Sodium 147 H Potassium 3.5 L Chloride 115.4 H Carbon Dioxide BUN 34 H Creatinine 0.3 L Glucose 154 H POC Glucose 146 H Lactic Acid Calcium 6.1 L Phosphorus 2.00 L Magnesium Total Creatine Kinase Troponin T Total Protein Albumin Triglycerides LDL Cholesterol Direct HDL Cholesterol Arterial Blood Glucose Arterial Blood Ionized Calcium Urine pH Urine WBC (Auto) Vancomycin Trough Salicylates Acetaminophen Crossmatch 11/05/20 11/05/20 11/05/20 11:33 17:52 23:37 WBC RBC Hgb Hct MCV MCH MCHC RDW Plt Count Lymph % (Auto) Seg Neutrophils % Seg Neuts % (Manual) Lymphocytes % (Manual) Nucleated RBC % Seg Neutrophils # Seg Neutrophils # Man Lymphocytes # (Manual) Monocytes # (Manual) PT INR ABG pH POC ABG pCO2 POC ABG pO2 ABG pO2 ABG HCO3 ABG O2 Saturation ABG Base Excess ABG Hemoglobin ABG Oxyhemoglobin ABG Sodium ABG Potassium ABG Chloride ABG Glucose Oxyhemoglobin Carboxyhemoglobin Sodium Potassium Chloride Carbon Dioxide BUN Creatinine Glucose POC Glucose 144 H 136 H 151 H Lactic Acid Calcium Phosphorus Magnesium Total Creatine Kinase Troponin T Total Protein Albumin Triglycerides LDL Cholesterol Direct HDL Cholesterol Arterial Blood Glucose Arterial Blood Ionized Calcium Urine pH Urine WBC (Auto) Vancomycin Trough Salicylates Acetaminophen Crossmatch 11/06/20 11/06/20 11/06/20 05:36 06:45 06:45 WBC 15.0 H RBC 2.33 L Hgb 7.2 L Hct 22.1 L MCV 95 H MCH MCHC RDW 16.2 H Plt Count 103 L Lymph % (Auto) Seg Neutrophils % Seg Neuts % (Manual) Lymphocytes % (Manual) Nucleated RBC % Seg Neutrophils # Seg Neutrophils # Man Lymphocytes # (Manual) Monocytes # (Manual) PT INR ABG pH POC ABG pCO2 POC ABG pO2 ABG pO2 ABG HCO3 ABG O2 Saturation ABG Base Excess ABG Hemoglobin ABG Oxyhemoglobin ABG Sodium ABG Potassium ABG Chloride ABG Glucose Oxyhemoglobin Carboxyhemoglobin Sodium 148 H Potassium Chloride 118.2 H Carbon Dioxide BUN 32 H Creatinine 0.4 L Glucose 153 H POC Glucose 140 H Lactic Acid Calcium 6.4 L Phosphorus 0.90 L* D Magnesium Total Creatine Kinase Troponin T Total Protein 5.0 L Albumin 1.4 L Triglycerides LDL Cholesterol Direct HDL Cholesterol Arterial Blood Glucose Arterial Blood Ionized Calcium Urine pH Urine WBC (Auto) Vancomycin Trough Salicylates Acetaminophen Crossmatch 11/06/20 11/06/20 11/06/20 11:32 17:37 23:19 WBC RBC Hgb Hct MCV MCH MCHC RDW Plt Count Lymph % (Auto) Seg Neutrophils % Seg Neuts % (Manual) Lymphocytes % (Manual) Nucleated RBC % Seg Neutrophils # Seg Neutrophils # Man Lymphocytes # (Manual) Monocytes # (Manual) PT INR ABG pH POC ABG pCO2 POC ABG pO2 ABG pO2 ABG HCO3 ABG O2 Saturation ABG Base Excess ABG Hemoglobin ABG Oxyhemoglobin ABG Sodium ABG Potassium ABG Chloride ABG Glucose Oxyhemoglobin Carboxyhemoglobin Sodium Potassium Chloride Carbon Dioxide BUN Creatinine Glucose POC Glucose 132 H 133 H 145 H Lactic Acid Calcium Phosphorus Magnesium Total Creatine Kinase Troponin T Total Protein Albumin Triglycerides LDL Cholesterol Direct HDL Cholesterol Arterial Blood Glucose Arterial Blood Ionized Calcium Urine pH Urine WBC (Auto) Vancomycin Trough Salicylates Acetaminophen Crossmatch 11/07/20 11/07/20 11/07/20 12:55 16:45 16:45 WBC 12.0 H RBC 3.63 L Hgb 11.4 L D Hct MCV 104 H MCH MCHC 30 L RDW 18.0 H Plt Count 133 L Lymph % (Auto) Seg Neutrophils % Seg Neuts % (Manual) Lymphocytes % (Manual) Nucleated RBC % Seg Neutrophils # Seg Neutrophils # Man Lymphocytes # (Manual) Monocytes # (Manual) PT INR ABG pH POC ABG pCO2 POC ABG pO2 ABG pO2 ABG HCO3 ABG O2 Saturation ABG Base Excess ABG Hemoglobin 7.7 L ABG Oxyhemoglobin ABG Sodium ABG Potassium ABG Chloride ABG Glucose Oxyhemoglobin 94.9 L Carboxyhemoglobin Sodium 149 H Potassium Chloride 119.8 H Carbon Dioxide BUN 31 H Creatinine 0.4 L Glucose 130 H POC Glucose Lactic Acid Calcium 6.5 L Phosphorus Magnesium Total Creatine Kinase Troponin T Total Protein Albumin Triglycerides LDL Cholesterol Direct HDL Cholesterol Arterial Blood Glucose Arterial Blood Ionized Calcium Urine pH Urine WBC (Auto) Vancomycin Trough Salicylates Acetaminophen Crossmatch 11/07/20 11/08/20 11/08/20 17:23 00:12 06:11 WBC RBC Hgb Hct MCV MCH MCHC RDW Plt Count Lymph % (Auto) Seg Neutrophils % Seg Neuts % (Manual) Lymphocytes % (Manual) Nucleated RBC % Seg Neutrophils # Seg Neutrophils # Man Lymphocytes # (Manual) Monocytes # (Manual) PT INR ABG pH POC ABG pCO2 POC ABG pO2 ABG pO2 ABG HCO3 ABG O2 Saturation ABG Base Excess ABG Hemoglobin ABG Oxyhemoglobin ABG Sodium ABG Potassium ABG Chloride ABG Glucose Oxyhemoglobin Carboxyhemoglobin Sodium Potassium Chloride Carbon Dioxide BUN Creatinine Glucose POC Glucose 115 H 129 H 109 H Lactic Acid Calcium Phosphorus Magnesium Total Creatine Kinase Troponin T Total Protein Albumin Triglycerides LDL Cholesterol Direct HDL Cholesterol Arterial Blood Glucose Arterial Blood Ionized Calcium Urine pH Urine WBC (Auto) Vancomycin Trough Salicylates Acetaminophen Crossmatch 11/08/20 11/08/20 11/08/20 17:36 23:49 23:58 WBC RBC Hgb Hct MCV MCH MCHC RDW Plt Count Lymph % (Auto) Seg Neutrophils % Seg Neuts % (Manual) Lymphocytes % (Manual) Nucleated RBC % Seg Neutrophils # Seg Neutrophils # Man Lymphocytes # (Manual) Monocytes # (Manual) PT INR ABG pH POC ABG pCO2 POC ABG pO2 ABG pO2 ABG HCO3 ABG O2 Saturation ABG Base Excess ABG Hemoglobin ABG Oxyhemoglobin ABG Sodium ABG Potassium ABG Chloride ABG Glucose Oxyhemoglobin Carboxyhemoglobin Sodium Potassium Chloride Carbon Dioxide BUN Creatinine Glucose 138 H POC Glucose 38 L 36 L Lactic Acid Calcium Phosphorus Magnesium Total Creatine Kinase Troponin T Total Protein Albumin Triglycerides LDL Cholesterol Direct HDL Cholesterol Arterial Blood Glucose Arterial Blood Ionized Calcium Urine pH Urine WBC (Auto) Vancomycin Trough Salicylates Acetaminophen Crossmatch 11/09/20 11/09/20 11/09/20 05:33 06:00 06:00 WBC 13.1 H RBC 2.35 L Hgb 7.6 L D Hct 22.9 L D MCV 97 H MCH MCHC RDW 16.8 H Plt Count Lymph % (Auto) 9.1 L Seg Neutrophils % 84.8 H Seg Neuts % (Manual) Lymphocytes % (Manual) Nucleated RBC % Seg Neutrophils # 11.1 H Seg Neutrophils # Man Lymphocytes # (Manual) Monocytes # (Manual) PT INR ABG pH POC ABG pCO2 POC ABG pO2 ABG pO2 ABG HCO3 ABG O2 Saturation ABG Base Excess ABG Hemoglobin ABG Oxyhemoglobin ABG Sodium ABG Potassium ABG Chloride ABG Glucose Oxyhemoglobin Carboxyhemoglobin Sodium 150 H Potassium 3.4 L D Chloride 119.2 H Carbon Dioxide BUN 30 H Creatinine 0.4 L Glucose 137 H POC Glucose 58 L Lactic Acid Calcium 7.2 L Phosphorus Magnesium Total Creatine Kinase Troponin T Total Protein Albumin Triglycerides LDL Cholesterol Direct HDL Cholesterol Arterial Blood Glucose Arterial Blood Ionized Calcium Urine pH Urine WBC (Auto) Vancomycin Trough Salicylates Acetaminophen Crossmatch 11/09/20 11/09/20 11/10/20 06:08 22:16 13:46 WBC 16.1 H RBC 2.52 L Hgb 8.1 L Hct 25.2 L MCV 100 H MCH MCHC RDW 18.2 H Plt Count Lymph % (Auto) Seg Neutrophils % Seg Neuts % (Manual) 90.0 H Lymphocytes % (Manual) 3.0 L Nucleated RBC % Seg Neutrophils # Seg Neutrophils # Man 14.5 H Lymphocytes # (Manual) 0.5 L Monocytes # (Manual) 1.1 H PT INR ABG pH POC ABG pCO2 POC ABG pO2 ABG pO2 ABG HCO3 ABG O2 Saturation ABG Base Excess ABG Hemoglobin ABG Oxyhemoglobin ABG Sodium ABG Potassium ABG Chloride ABG Glucose Oxyhemoglobin Carboxyhemoglobin Sodium Potassium Chloride Carbon Dioxide BUN Creatinine Glucose POC Glucose 122 H 120 H Lactic Acid Calcium Phosphorus Magnesium Total Creatine Kinase Troponin T Total Protein Albumin Triglycerides LDL Cholesterol Direct HDL Cholesterol Arterial Blood Glucose Arterial Blood Ionized Calcium Urine pH Urine WBC (Auto) Vancomycin Trough Salicylates Acetaminophen Crossmatch 11/10/20 11/10/20 11/11/20 13:46 15:59 11:43 WBC RBC Hgb Hct MCV MCH MCHC RDW Plt Count Lymph % (Auto) Seg Neutrophils % Seg Neuts % (Manual) Lymphocytes % (Manual) Nucleated RBC % Seg Neutrophils # Seg Neutrophils # Man Lymphocytes # (Manual) Monocytes # (Manual) PT INR ABG pH POC ABG pCO2 POC ABG pO2 ABG pO2 ABG HCO3 ABG O2 Saturation ABG Base Excess ABG Hemoglobin ABG Oxyhemoglobin ABG Sodium ABG Potassium ABG Chloride ABG Glucose Oxyhemoglobin Carboxyhemoglobin Sodium 153 H Potassium Chloride 120.6 H Carbon Dioxide BUN 27 H Creatinine 0.3 L Glucose 112 H POC Glucose 40 L 124 H Lactic Acid Calcium 6.8 L Phosphorus Magnesium Total Creatine Kinase Troponin T Total Protein Albumin Triglycerides LDL Cholesterol Direct HDL Cholesterol Arterial Blood Glucose Arterial Blood Ionized Calcium Urine pH Urine WBC (Auto) Vancomycin Trough Salicylates Acetaminophen Crossmatch 11/11/20 11/11/20 11/11/20 14:38 14:38 14:38 WBC 13.8 H RBC 2.43 L Hgb 7.6 L Hct 24.0 L MCV 99 H MCH MCHC RDW 18.0 H Plt Count Lymph % (Auto) Seg Neutrophils % Seg Neuts % (Manual) Lymphocytes % (Manual) Nucleated RBC % Seg Neutrophils # Seg Neutrophils # Man Lymphocytes # (Manual) Monocytes # (Manual) PT 15.0 H INR 1.18 H ABG pH POC ABG pCO2 POC ABG pO2 ABG pO2 ABG HCO3 ABG O2 Saturation ABG Base Excess ABG Hemoglobin ABG Oxyhemoglobin ABG Sodium ABG Potassium ABG Chloride ABG Glucose Oxyhemoglobin Carboxyhemoglobin Sodium 154 H Potassium 3.1 L D Chloride 122.1 H Carbon Dioxide BUN 26 H Creatinine 0.4 L Glucose 140 H POC Glucose Lactic Acid Calcium 7.3 L Phosphorus Magnesium Total Creatine Kinase Troponin T Total Protein Albumin Triglycerides LDL Cholesterol Direct HDL Cholesterol Arterial Blood Glucose Arterial Blood Ionized Calcium Urine pH Urine WBC (Auto) Vancomycin Trough Salicylates Acetaminophen Crossmatch 11/11/20 11/11/20 11/12/20 18:39 18:42 00:03 WBC RBC Hgb Hct MCV MCH MCHC RDW Plt Count Lymph % (Auto) Seg Neutrophils % Seg Neuts % (Manual) Lymphocytes % (Manual) Nucleated RBC % Seg Neutrophils # Seg Neutrophils # Man Lymphocytes # (Manual) Monocytes # (Manual) PT INR ABG pH POC ABG pCO2 POC ABG pO2 ABG pO2 ABG HCO3 ABG O2 Saturation ABG Base Excess ABG Hemoglobin ABG Oxyhemoglobin ABG Sodium ABG Potassium ABG Chloride ABG Glucose Oxyhemoglobin Carboxyhemoglobin Sodium Potassium Chloride Carbon Dioxide BUN Creatinine Glucose POC Glucose 45 L 66 L 108 H Lactic Acid Calcium Phosphorus Magnesium Total Creatine Kinase Troponin T Total Protein Albumin Triglycerides LDL Cholesterol Direct HDL Cholesterol Arterial Blood Glucose Arterial Blood Ionized Calcium Urine pH Urine WBC (Auto) Vancomycin Trough Salicylates Acetaminophen Crossmatch 11/12/20 11/12/20 11/12/20 05:44 08:33 08:33 WBC 13.4 H RBC 2.35 L Hgb 7.5 L Hct 23.7 L MCV 101 H MCH MCHC RDW 19.7 H Plt Count Lymph % (Auto) Seg Neutrophils % Seg Neuts % (Manual) Lymphocytes % (Manual) Nucleated RBC % Seg Neutrophils # Seg Neutrophils # Man Lymphocytes # (Manual) Monocytes # (Manual) PT INR ABG pH POC ABG pCO2 POC ABG pO2 ABG pO2 ABG HCO3 ABG O2 Saturation ABG Base Excess ABG Hemoglobin ABG Oxyhemoglobin ABG Sodium ABG Potassium ABG Chloride ABG Glucose Oxyhemoglobin Carboxyhemoglobin Sodium 154 H Potassium 2.9 L* Chloride 121.4 H Carbon Dioxide BUN 26 H Creatinine 0.4 L Glucose 153 H POC Glucose 114 H Lactic Acid Calcium 7.3 L Phosphorus Magnesium Total Creatine Kinase Troponin T Total Protein Albumin Triglycerides LDL Cholesterol Direct HDL Cholesterol Arterial Blood Glucose Arterial Blood Ionized Calcium Urine pH Urine WBC (Auto) Vancomycin Trough Salicylates Acetaminophen Crossmatch 11/12/20 11/12/20 11/13/20 11:38 17:17 05:28 WBC RBC Hgb Hct MCV MCH MCHC RDW Plt Count Lymph % (Auto) Seg Neutrophils % Seg Neuts % (Manual) Lymphocytes % (Manual) Nucleated RBC % Seg Neutrophils # Seg Neutrophils # Man Lymphocytes # (Manual) Monocytes # (Manual) PT INR ABG pH POC ABG pCO2 51.4 H POC ABG pO2 41.7 L ABG pO2 ABG HCO3 ABG O2 Saturation ABG Base Excess ABG Hemoglobin 9.1 L ABG Oxyhemoglobin 72.2 L ABG Sodium 151.1 H ABG Potassium 3.2 L ABG Chloride 122.0 H ABG Glucose 191 H Oxyhemoglobin Carboxyhemoglobin Sodium Potassium Chloride Carbon Dioxide BUN Creatinine Glucose POC Glucose 125 H 127 H Lactic Acid Calcium Phosphorus Magnesium Total Creatine Kinase Troponin T Total Protein Albumin Triglycerides LDL Cholesterol Direct HDL Cholesterol Arterial Blood Glucose 191 H Arterial Blood Ionized Calcium Urine pH Urine WBC (Auto) Vancomycin Trough Salicylates Acetaminophen Crossmatch 11/13/20 11/13/20 11/13/20 10:46 23:15 23:15 WBC 12.2 H RBC 2.41 L Hgb 7.7 L Hct 24.5 L MCV 102 H MCH MCHC RDW 23.0 H Plt Count Lymph % (Auto) Seg Neutrophils % Seg Neuts % (Manual) Lymphocytes % (Manual) Nucleated RBC % Seg Neutrophils # Seg Neutrophils # Man Lymphocytes # (Manual) Monocytes # (Manual) PT INR ABG pH POC ABG pCO2 POC ABG pO2 ABG pO2 ABG HCO3 ABG O2 Saturation ABG Base Excess ABG Hemoglobin ABG Oxyhemoglobin ABG Sodium ABG Potassium ABG Chloride ABG Glucose Oxyhemoglobin Carboxyhemoglobin Sodium Potassium Chloride Carbon Dioxide BUN Creatinine Glucose POC Glucose 153 H Lactic Acid Calcium Phosphorus Magnesium Total Creatine Kinase Troponin T 0.123 H* Total Protein Albumin Triglycerides LDL Cholesterol Direct HDL Cholesterol Arterial Blood Glucose Arterial Blood Ionized Calcium Urine pH Urine WBC (Auto) Vancomycin Trough Salicylates Acetaminophen Crossmatch 11/13/20 11/13/20 11/14/20 23:15 Unknown 05:26 WBC RBC Hgb Hct MCV MCH MCHC RDW Plt Count Lymph % (Auto) Seg Neutrophils % Seg Neuts % (Manual) Lymphocytes % (Manual) Nucleated RBC % Seg Neutrophils # Seg Neutrophils # Man Lymphocytes # (Manual) Monocytes # (Manual) PT INR ABG pH 7.295 L POC ABG pCO2 56.0 H POC ABG pO2 49.1 L ABG pO2 ABG HCO3 ABG O2 Saturation ABG Base Excess ABG Hemoglobin 8.3 L ABG Oxyhemoglobin 77.1 L ABG Sodium 150.5 H ABG Potassium 3.3 L ABG Chloride 121.0 H ABG Glucose 187 H Oxyhemoglobin Carboxyhemoglobin Sodium 152 H Potassium 3.3 L Chloride 117.8 H Carbon Dioxide BUN 25 H Creatinine 0.4 L Glucose 123 H POC Glucose 46 L Lactic Acid Calcium 7.5 L Phosphorus Magnesium Total Creatine Kinase Troponin T Total Protein Albumin Triglycerides LDL Cholesterol Direct HDL Cholesterol Arterial Blood Glucose 187 H Arterial Blood Ionized Calcium Urine pH Urine WBC (Auto) Vancomycin Trough Salicylates Acetaminophen Crossmatch 11/14/20 11/14/20 11/14/20 06:26 22:26 22:26 WBC RBC 2.75 L Hgb 9.0 L Hct 27.8 L MCV 101 H MCH 33 H MCHC RDW 22.8 H Plt Count Lymph % (Auto) Seg Neutrophils % Seg Neuts % (Manual) Lymphocytes % (Manual) Nucleated RBC % Seg Neutrophils # Seg Neutrophils # Man Lymphocytes # (Manual) Monocytes # (Manual) PT INR ABG pH POC ABG pCO2 POC ABG pO2 ABG pO2 ABG HCO3 ABG O2 Saturation ABG Base Excess ABG Hemoglobin ABG Oxyhemoglobin ABG Sodium ABG Potassium ABG Chloride ABG Glucose Oxyhemoglobin Carboxyhemoglobin Sodium 147 H Potassium 3.3 L Chloride 114.3 H Carbon Dioxide BUN 23 H Creatinine 0.3 L Glucose 209 H POC Glucose 135 H Lactic Acid Calcium 7.4 L Phosphorus Magnesium Total Creatine Kinase Troponin T Total Protein Albumin Triglycerides LDL Cholesterol Direct HDL Cholesterol Arterial Blood Glucose Arterial Blood Ionized Calcium Urine pH Urine WBC (Auto) Vancomycin Trough Salicylates Acetaminophen Crossmatch 11/14/20 11/15/20 11/15/20 23:22 04:28 05:57 WBC RBC Hgb Hct MCV MCH MCHC RDW Plt Count Lymph % (Auto) Seg Neutrophils % Seg Neuts % (Manual) Lymphocytes % (Manual) Nucleated RBC % Seg Neutrophils # Seg Neutrophils # Man Lymphocytes # (Manual) Monocytes # (Manual) PT INR ABG pH POC ABG pCO2 POC ABG pO2 ABG pO2 ABG HCO3 ABG O2 Saturation ABG Base Excess ABG Hemoglobin ABG Oxyhemoglobin ABG Sodium ABG Potassium ABG Chloride ABG Glucose Oxyhemoglobin Carboxyhemoglobin Sodium 152 H Potassium Chloride 118.1 H Carbon Dioxide BUN 22 H Creatinine 0.3 L Glucose 190 H POC Glucose 136 H 151 H Lactic Acid Calcium 7.5 L Phosphorus Magnesium Total Creatine Kinase Troponin T Total Protein Albumin Triglycerides LDL Cholesterol Direct HDL Cholesterol Arterial Blood Glucose Arterial Blood Ionized Calcium Urine pH Urine WBC (Auto) Vancomycin Trough Salicylates Acetaminophen Crossmatch 11/15/20 11/15/20 11/15/20 11:40 16:56 21:53 WBC RBC Hgb Hct MCV MCH MCHC RDW Plt Count Lymph % (Auto) Seg Neutrophils % Seg Neuts % (Manual) Lymphocytes % (Manual) Nucleated RBC % Seg Neutrophils # Seg Neutrophils # Man Lymphocytes # (Manual) Monocytes # (Manual) PT INR ABG pH 7.457 H POC ABG pCO2 POC ABG pO2 ABG pO2 48.3 L ABG HCO3 26.1 H ABG O2 Saturation 82.9 L ABG Base Excess ABG Hemoglobin 9.7 L ABG Oxyhemoglobin ABG Sodium ABG Potassium ABG Chloride ABG Glucose Oxyhemoglobin 81.0 L Carboxyhemoglobin Sodium Potassium Chloride Carbon Dioxide BUN Creatinine Glucose POC Glucose 129 H 115 H Lactic Acid Calcium Phosphorus Magnesium Total Creatine Kinase Troponin T Total Protein Albumin Triglycerides LDL Cholesterol Direct HDL Cholesterol Arterial Blood Glucose Arterial Blood Ionized Calcium Urine pH Urine WBC (Auto) Vancomycin Trough Salicylates Acetaminophen Crossmatch 11/15/20 11/16/20 11/16/20 23:12 00:07 00:09 WBC RBC Hgb Hct MCV MCH MCHC RDW Plt Count Lymph % (Auto) Seg Neutrophils % Seg Neuts % (Manual) Lymphocytes % (Manual) Nucleated RBC % Seg Neutrophils # Seg Neutrophils # Man Lymphocytes # (Manual) Monocytes # (Manual) PT INR ABG pH POC ABG pCO2 POC ABG pO2 ABG pO2 95.1 H ABG HCO3 26.6 H ABG O2 Saturation ABG Base Excess ABG Hemoglobin 7.5 L ABG Oxyhemoglobin ABG Sodium ABG Potassium ABG Chloride ABG Glucose Oxyhemoglobin Carboxyhemoglobin Sodium Potassium Chloride Carbon Dioxide BUN Creatinine Glucose POC Glucose 13 L 153 H Lactic Acid Calcium Phosphorus Magnesium Total Creatine Kinase Troponin T Total Protein Albumin Triglycerides LDL Cholesterol Direct HDL Cholesterol Arterial Blood Glucose Arterial Blood Ionized Calcium Urine pH Urine WBC (Auto) Vancomycin Trough Salicylates Acetaminophen Crossmatch 11/16/20 11/16/20 11/16/20 03:43 04:00 04:00 WBC RBC 2.33 L Hgb 7.7 L Hct 24.5 L MCV 105 H MCH 33 H MCHC 31 L RDW 22.9 H Plt Count Lymph % (Auto) Seg Neutrophils % Seg Neuts % (Manual) Lymphocytes % (Manual) Nucleated RBC % Seg Neutrophils # Seg Neutrophils # Man Lymphocytes # (Manual) Monocytes # (Manual) PT INR ABG pH 7.348 L POC ABG pCO2 POC ABG pO2 ABG pO2 91.6 H ABG HCO3 26.3 H ABG O2 Saturation ABG Base Excess ABG Hemoglobin 7.3 L ABG Oxyhemoglobin ABG Sodium ABG Potassium ABG Chloride ABG Glucose Oxyhemoglobin Carboxyhemoglobin Sodium 148 H Potassium 3.5 L Chloride 115.9 H Carbon Dioxide BUN Creatinine 0.4 L Glucose 195 H POC Glucose Lactic Acid Calcium 7.6 L Phosphorus Magnesium Total Creatine Kinase Troponin T Total Protein Albumin Triglycerides LDL Cholesterol Direct HDL Cholesterol Arterial Blood Glucose Arterial Blood Ionized Calcium Urine pH Urine WBC (Auto) Vancomycin Trough Salicylates Acetaminophen Crossmatch 11/16/20 11/16/20 11/16/20 05:16 07:40 12:10 WBC RBC Hgb Hct MCV MCH MCHC RDW Plt Count Lymph % (Auto) Seg Neutrophils % Seg Neuts % (Manual) Lymphocytes % (Manual) Nucleated RBC % Seg Neutrophils # Seg Neutrophils # Man Lymphocytes # (Manual) Monocytes # (Manual) PT INR ABG pH POC ABG pCO2 POC ABG pO2 ABG pO2 ABG HCO3 ABG O2 Saturation ABG Base Excess ABG Hemoglobin ABG Oxyhemoglobin ABG Sodium ABG Potassium ABG Chloride ABG Glucose Oxyhemoglobin Carboxyhemoglobin Sodium Potassium Chloride Carbon Dioxide BUN Creatinine Glucose POC Glucose 61 L 122 H 140 H Lactic Acid Calcium Phosphorus Magnesium Total Creatine Kinase Troponin T Total Protein Albumin Triglycerides LDL Cholesterol Direct HDL Cholesterol Arterial Blood Glucose Arterial Blood Ionized Calcium Urine pH Urine WBC (Auto) Vancomycin Trough Salicylates Acetaminophen Crossmatch 11/16/20 11/16/20 11/17/20 17:14 23:40 04:30 WBC RBC Hgb Hct MCV MCH MCHC RDW Plt Count Lymph % (Auto) Seg Neutrophils % Seg Neuts % (Manual) Lymphocytes % (Manual) Nucleated RBC % Seg Neutrophils # Seg Neutrophils # Man Lymphocytes # (Manual) Monocytes # (Manual) PT INR ABG pH 7.470 H POC ABG pCO2 POC ABG pO2 75.4 L ABG pO2 ABG HCO3 ABG O2 Saturation ABG Base Excess ABG Hemoglobin 7 L ABG Oxyhemoglobin ABG Sodium ABG Potassium ABG Chloride 116.0 H ABG Glucose 161 H Oxyhemoglobin Carboxyhemoglobin Sodium Potassium Chloride Carbon Dioxide BUN Creatinine Glucose POC Glucose 139 H 151 H Lactic Acid Calcium Phosphorus Magnesium Total Creatine Kinase Troponin T Total Protein Albumin Triglycerides LDL Cholesterol Direct HDL Cholesterol Arterial Blood Glucose 161 H Arterial Blood Ionized Calcium Urine pH Urine WBC (Auto) Vancomycin Trough Salicylates Acetaminophen Crossmatch 11/17/20 11/17/20 11/17/20 09:50 09:50 11:10 WBC RBC 2.02 L Hgb 6.6 L Hct 20.2 L MCV 100 H MCH 33 H MCHC RDW 22.4 H Plt Count Lymph % (Auto) Seg Neutrophils % Seg Neuts % (Manual) Lymphocytes % (Manual) Nucleated RBC % Seg Neutrophils # Seg Neutrophils # Man Lymphocytes # (Manual) Monocytes # (Manual) PT INR ABG pH POC ABG pCO2 POC ABG pO2 ABG pO2 ABG HCO3 ABG O2 Saturation ABG Base Excess ABG Hemoglobin ABG Oxyhemoglobin ABG Sodium ABG Potassium ABG Chloride ABG Glucose Oxyhemoglobin Carboxyhemoglobin Sodium Potassium Chloride 111.8 H Carbon Dioxide BUN 23 H Creatinine 0.4 L Glucose 142 H POC Glucose Lactic Acid Calcium 7.3 L Phosphorus Magnesium Total Creatine Kinase Troponin T Total Protein Albumin Triglycerides LDL Cholesterol Direct HDL Cholesterol Arterial Blood Glucose Arterial Blood Ionized Calcium Urine pH Urine WBC (Auto) Vancomycin Trough Salicylates Acetaminophen Crossmatch See Detail 11/17/20 11/17/20 11/17/20 11:52 11:57 23:22 WBC RBC Hgb Hct MCV MCH MCHC RDW Plt Count Lymph % (Auto) Seg Neutrophils % Seg Neuts % (Manual) Lymphocytes % (Manual) Nucleated RBC % Seg Neutrophils # Seg Neutrophils # Man Lymphocytes # (Manual) Monocytes # (Manual) PT INR ABG pH POC ABG pCO2 POC ABG pO2 ABG pO2 ABG HCO3 ABG O2 Saturation ABG Base Excess ABG Hemoglobin ABG Oxyhemoglobin ABG Sodium ABG Potassium ABG Chloride ABG Glucose Oxyhemoglobin Carboxyhemoglobin Sodium Potassium Chloride Carbon Dioxide BUN Creatinine Glucose POC Glucose 42 L 114 H 63 L Lactic Acid Calcium Phosphorus Magnesium Total Creatine Kinase Troponin T Total Protein Albumin Triglycerides LDL Cholesterol Direct HDL Cholesterol Arterial Blood Glucose Arterial Blood Ionized Calcium Urine pH Urine WBC (Auto) Vancomycin Trough Salicylates Acetaminophen Crossmatch 11/17/20 11/18/20 11/18/20 23:27 04:06 04:45 WBC RBC 2.36 L Hgb 7.4 L Hct 23.4 L MCV 99 H MCH MCHC RDW 21.6 H Plt Count Lymph % (Auto) Seg Neutrophils % Seg Neuts % (Manual) Lymphocytes % (Manual) Nucleated RBC % Seg Neutrophils # Seg Neutrophils # Man Lymphocytes # (Manual) Monocytes # (Manual) PT INR ABG pH POC ABG pCO2 POC ABG pO2 67.7 L ABG pO2 ABG HCO3 ABG O2 Saturation ABG Base Excess ABG Hemoglobin 8.3 L ABG Oxyhemoglobin ABG Sodium ABG Potassium ABG Chloride 112.0 H ABG Glucose 143 H Oxyhemoglobin Carboxyhemoglobin Sodium Potassium Chloride Carbon Dioxide BUN Creatinine Glucose POC Glucose 124 H Lactic Acid Calcium Phosphorus Magnesium Total Creatine Kinase Troponin T Total Protein Albumin Triglycerides LDL Cholesterol Direct HDL Cholesterol Arterial Blood Glucose 143 H Arterial Blood Ionized Calcium 4.5 L Urine pH Urine WBC (Auto) Vancomycin Trough Salicylates Acetaminophen Crossmatch 11/18/20 11/18/20 11/18/20 04:45 05:56 23:46 WBC RBC Hgb Hct MCV MCH MCHC RDW Plt Count Lymph % (Auto) Seg Neutrophils % Seg Neuts % (Manual) Lymphocytes % (Manual) Nucleated RBC % Seg Neutrophils # Seg Neutrophils # Man Lymphocytes # (Manual) Monocytes # (Manual) PT INR ABG pH POC ABG pCO2 POC ABG pO2 ABG pO2 ABG HCO3 ABG O2 Saturation ABG Base Excess ABG Hemoglobin ABG Oxyhemoglobin ABG Sodium ABG Potassium ABG Chloride ABG Glucose Oxyhemoglobin Carboxyhemoglobin Sodium Potassium Chloride 107.9 H Carbon Dioxide BUN 23 H Creatinine 0.4 L Glucose 139 H POC Glucose 133 H 66 L Lactic Acid Calcium 7.6 L Phosphorus Magnesium Total Creatine Kinase Troponin T Total Protein Albumin Triglycerides LDL Cholesterol Direct HDL Cholesterol Arterial Blood Glucose Arterial Blood Ionized Calcium Urine pH Urine WBC (Auto) Vancomycin Trough Salicylates Acetaminophen Crossmatch 11/18/20 11/19/20 11/19/20 23:52 05:48 06:36 WBC RBC Hgb Hct MCV MCH MCHC RDW Plt Count Lymph % (Auto) Seg Neutrophils % Seg Neuts % (Manual) Lymphocytes % (Manual) Nucleated RBC % Seg Neutrophils # Seg Neutrophils # Man Lymphocytes # (Manual) Monocytes # (Manual) PT INR ABG pH POC ABG pCO2 POC ABG pO2 ABG pO2 ABG HCO3 ABG O2 Saturation ABG Base Excess ABG Hemoglobin ABG Oxyhemoglobin ABG Sodium ABG Potassium ABG Chloride ABG Glucose Oxyhemoglobin Carboxyhemoglobin Sodium Potassium Chloride Carbon Dioxide BUN 21 H Creatinine 0.4 L Glucose 119 H POC Glucose 118 H 108 H Lactic Acid Calcium 7.8 L Phosphorus Magnesium Total Creatine Kinase Troponin T Total Protein Albumin Triglycerides LDL Cholesterol Direct HDL Cholesterol Arterial Blood Glucose Arterial Blood Ionized Calcium Urine pH Urine WBC (Auto) Vancomycin Trough Salicylates Acetaminophen Crossmatch 11/19/20 11/19/20 11/19/20 06:36 06:36 18:15 WBC RBC 2.79 L Hgb 9.0 L Hct 27.8 L MCV 100 H MCH MCHC RDW 20.7 H Plt Count Lymph % (Auto) Seg Neutrophils % Seg Neuts % (Manual) Lymphocytes % (Manual) Nucleated RBC % Seg Neutrophils # Seg Neutrophils # Man Lymphocytes # (Manual) Monocytes # (Manual) PT INR 1.15 H ABG pH POC ABG pCO2 POC ABG pO2 ABG pO2 ABG HCO3 ABG O2 Saturation ABG Base Excess ABG Hemoglobin ABG Oxyhemoglobin ABG Sodium ABG Potassium ABG Chloride ABG Glucose Oxyhemoglobin Carboxyhemoglobin Sodium Potassium Chloride Carbon Dioxide BUN Creatinine Glucose POC Glucose 115 H Lactic Acid Calcium Phosphorus Magnesium Total Creatine Kinase Troponin T Total Protein Albumin Triglycerides LDL Cholesterol Direct HDL Cholesterol Arterial Blood Glucose Arterial Blood Ionized Calcium Urine pH Urine WBC (Auto) Vancomycin Trough Salicylates Acetaminophen Crossmatch 11/19/20 11/19/20 11/20/20 23:27 Unknown 04:56 WBC RBC Hgb Hct MCV MCH MCHC RDW Plt Count Lymph % (Auto) Seg Neutrophils % Seg Neuts % (Manual) Lymphocytes % (Manual) Nucleated RBC % Seg Neutrophils # Seg Neutrophils # Man Lymphocytes # (Manual) Monocytes # (Manual) PT INR ABG pH 7.457 H POC ABG pCO2 POC ABG pO2 57.4 L ABG pO2 72.4 L ABG HCO3 26.9 H ABG O2 Saturation ABG Base Excess ABG Hemoglobin 8.5 L 9.6 L ABG Oxyhemoglobin 90.1 L ABG Sodium ABG Potassium ABG Chloride 109.0 H ABG Glucose 142 H Oxyhemoglobin 94.1 L Carboxyhemoglobin Sodium Potassium Chloride Carbon Dioxide BUN Creatinine Glucose POC Glucose 129 H Lactic Acid Calcium Phosphorus Magnesium Total Creatine Kinase Troponin T Total Protein Albumin Triglycerides LDL Cholesterol Direct HDL Cholesterol Arterial Blood Glucose 142 H Arterial Blood Ionized Calcium Urine pH Urine WBC (Auto) Vancomycin Trough Salicylates Acetaminophen Crossmatch 11/20/20 11/20/20 11/20/20 05:07 05:45 05:45 WBC 11.7 H RBC 2.74 L Hgb 8.9 L Hct 26.3 L MCV 96 H MCH 33 H MCHC RDW 18.6 H Plt Count Lymph % (Auto) Seg Neutrophils % Seg Neuts % (Manual) Lymphocytes % (Manual) Nucleated RBC % Seg Neutrophils # Seg Neutrophils # Man Lymphocytes # (Manual) Monocytes # (Manual) PT INR ABG pH POC ABG pCO2 POC ABG pO2 ABG pO2 ABG HCO3 ABG O2 Saturation ABG Base Excess ABG Hemoglobin ABG Oxyhemoglobin ABG Sodium ABG Potassium ABG Chloride ABG Glucose Oxyhemoglobin Carboxyhemoglobin Sodium Potassium Chloride Carbon Dioxide 31 H BUN Creatinine 0.4 L Glucose 127 H POC Glucose 129 H Lactic Acid Calcium 8.0 L Phosphorus Magnesium Total Creatine Kinase Troponin T Total Protein Albumin Triglycerides LDL Cholesterol Direct HDL Cholesterol Arterial Blood Glucose Arterial Blood Ionized Calcium Urine pH Urine WBC (Auto) Vancomycin Trough Salicylates Acetaminophen Crossmatch 11/20/20 11/20/20 11/21/20 12:02 17:52 00:02 WBC RBC Hgb Hct MCV MCH MCHC RDW Plt Count Lymph % (Auto) Seg Neutrophils % Seg Neuts % (Manual) Lymphocytes % (Manual) Nucleated RBC % Seg Neutrophils # Seg Neutrophils # Man Lymphocytes # (Manual) Monocytes # (Manual) PT INR ABG pH POC ABG pCO2 POC ABG pO2 ABG pO2 ABG HCO3 ABG O2 Saturation ABG Base Excess ABG Hemoglobin ABG Oxyhemoglobin ABG Sodium ABG Potassium ABG Chloride ABG Glucose Oxyhemoglobin Carboxyhemoglobin Sodium Potassium Chloride Carbon Dioxide BUN Creatinine Glucose POC Glucose 134 H 115 H 116 H Lactic Acid Calcium Phosphorus Magnesium Total Creatine Kinase Troponin T Total Protein Albumin Triglycerides LDL Cholesterol Direct HDL Cholesterol Arterial Blood Glucose Arterial Blood Ionized Calcium Urine pH Urine WBC (Auto) Vancomycin Trough Salicylates Acetaminophen Crossmatch 11/21/20 11/21/20 11/21/20 03:23 04:00 05:14 WBC RBC Hgb Hct MCV MCH MCHC RDW Plt Count Lymph % (Auto) Seg Neutrophils % Seg Neuts % (Manual) Lymphocytes % (Manual) Nucleated RBC % Seg Neutrophils # Seg Neutrophils # Man Lymphocytes # (Manual) Monocytes # (Manual) PT INR ABG pH 7.479 H POC ABG pCO2 POC ABG pO2 73.7 L ABG pO2 ABG HCO3 ABG O2 Saturation ABG Base Excess ABG Hemoglobin 9.4 L ABG Oxyhemoglobin ABG Sodium ABG Potassium ABG Chloride 108.0 H ABG Glucose 135 H Oxyhemoglobin Carboxyhemoglobin Sodium Potassium Chloride Carbon Dioxide 34 H BUN Creatinine 0.4 L Glucose 125 H POC Glucose 116 H Lactic Acid Calcium 7.9 L Phosphorus Magnesium Total Creatine Kinase Troponin T Total Protein Albumin Triglycerides LDL Cholesterol Direct HDL Cholesterol Arterial Blood Glucose 135 H Arterial Blood Ionized Calcium 4.5 L Urine pH Urine WBC (Auto) Vancomycin Trough Salicylates Acetaminophen Crossmatch 11/22/20 11/22/20 11/22/20 04:00 04:00 05:34 WBC 12.2 H RBC 2.74 L Hgb 8.7 L Hct 27.4 L MCV 100 H MCH MCHC RDW 19.2 H Plt Count Lymph % (Auto) Seg Neutrophils % Seg Neuts % (Manual) Lymphocytes % (Manual) Nucleated RBC % Seg Neutrophils # Seg Neutrophils # Man Lymphocytes # (Manual) Monocytes # (Manual) PT INR ABG pH POC ABG pCO2 POC ABG pO2 ABG pO2 ABG HCO3 ABG O2 Saturation ABG Base Excess ABG Hemoglobin ABG Oxyhemoglobin ABG Sodium ABG Potassium ABG Chloride ABG Glucose Oxyhemoglobin Carboxyhemoglobin Sodium Potassium Chloride Carbon Dioxide BUN Creatinine 0.4 L Glucose POC Glucose 58 L Lactic Acid Calcium 7.7 L Phosphorus Magnesium Total Creatine Kinase Troponin T Total Protein Albumin Triglycerides LDL Cholesterol Direct HDL Cholesterol Arterial Blood Glucose Arterial Blood Ionized Calcium Urine pH Urine WBC (Auto) Vancomycin Trough Salicylates Acetaminophen Crossmatch 11/22/20 11/23/20 11/23/20 11:48 00:15 04:25 WBC RBC Hgb Hct MCV MCH MCHC RDW Plt Count Lymph % (Auto) Seg Neutrophils % Seg Neuts % (Manual) Lymphocytes % (Manual) Nucleated RBC % Seg Neutrophils # Seg Neutrophils # Man Lymphocytes # (Manual) Monocytes # (Manual) PT INR ABG pH 7.489 H POC ABG pCO2 POC ABG pO2 74.7 L ABG pO2 ABG HCO3 ABG O2 Saturation ABG Base Excess ABG Hemoglobin 9.6 L ABG Oxyhemoglobin ABG Sodium 135.6 L ABG Potassium ABG Chloride ABG Glucose 119 H Oxyhemoglobin Carboxyhemoglobin Sodium Potassium Chloride Carbon Dioxide BUN Creatinine Glucose POC Glucose 60 L 106 H Lactic Acid Calcium Phosphorus Magnesium Total Creatine Kinase Troponin T Total Protein Albumin Triglycerides LDL Cholesterol Direct HDL Cholesterol Arterial Blood Glucose 119 H Arterial Blood Ionized Calcium 4.4 L Urine pH Urine WBC (Auto) Vancomycin Trough Salicylates Acetaminophen Crossmatch 11/23/20 11/23/20 11/23/20 05:27 10:23 10:23 WBC 11.3 H RBC 2.58 L Hgb 8.4 L Hct 24.7 L MCV 96 H MCH MCHC RDW 18.2 H Plt Count Lymph % (Auto) Seg Neutrophils % Seg Neuts % (Manual) 94.0 H Lymphocytes % (Manual) 5.0 L Nucleated RBC % Seg Neutrophils # Seg Neutrophils # Man 10.6 H Lymphocytes # (Manual) 0.6 L Monocytes # (Manual) PT INR ABG pH POC ABG pCO2 POC ABG pO2 ABG pO2 ABG HCO3 ABG O2 Saturation ABG Base Excess ABG Hemoglobin ABG Oxyhemoglobin ABG Sodium ABG Potassium ABG Chloride ABG Glucose Oxyhemoglobin Carboxyhemoglobin Sodium Potassium Chloride Carbon Dioxide BUN Creatinine 0.4 L Glucose 101 H POC Glucose 121 H Lactic Acid Calcium 7.2 L Phosphorus Magnesium Total Creatine Kinase Troponin T Total Protein Albumin Triglycerides LDL Cholesterol Direct HDL Cholesterol Arterial Blood Glucose Arterial Blood Ionized Calcium Urine pH Urine WBC (Auto) Vancomycin Trough Salicylates Acetaminophen Crossmatch 11/23/20 11/23/20 11/24/20 11:53 23:19 05:31 WBC RBC Hgb Hct MCV MCH MCHC RDW Plt Count Lymph % (Auto) Seg Neutrophils % Seg Neuts % (Manual) Lymphocytes % (Manual) Nucleated RBC % Seg Neutrophils # Seg Neutrophils # Man Lymphocytes # (Manual) Monocytes # (Manual) PT INR ABG pH POC ABG pCO2 POC ABG pO2 ABG pO2 ABG HCO3 ABG O2 Saturation ABG Base Excess ABG Hemoglobin ABG Oxyhemoglobin ABG Sodium ABG Potassium ABG Chloride ABG Glucose Oxyhemoglobin Carboxyhemoglobin Sodium Potassium Chloride Carbon Dioxide BUN Creatinine Glucose POC Glucose 112 H 120 H 132 H Lactic Acid Calcium Phosphorus Magnesium Total Creatine Kinase Troponin T Total Protein Albumin Triglycerides LDL Cholesterol Direct HDL Cholesterol Arterial Blood Glucose Arterial Blood Ionized Calcium Urine pH Urine WBC (Auto) Vancomycin Trough Salicylates Acetaminophen Crossmatch 11/24/20 11/24/20 11/24/20 11:27 16:48 23:11 WBC RBC Hgb Hct MCV MCH MCHC RDW Plt Count Lymph % (Auto) Seg Neutrophils % Seg Neuts % (Manual) Lymphocytes % (Manual) Nucleated RBC % Seg Neutrophils # Seg Neutrophils # Man Lymphocytes # (Manual) Monocytes # (Manual) PT INR ABG pH POC ABG pCO2 POC ABG pO2 ABG pO2 ABG HCO3 ABG O2 Saturation ABG Base Excess ABG Hemoglobin ABG Oxyhemoglobin ABG Sodium ABG Potassium ABG Chloride ABG Glucose Oxyhemoglobin Carboxyhemoglobin Sodium Potassium Chloride Carbon Dioxide BUN Creatinine Glucose POC Glucose 137 H 128 H 114 H Lactic Acid Calcium Phosphorus Magnesium Total Creatine Kinase Troponin T Total Protein Albumin Triglycerides LDL Cholesterol Direct HDL Cholesterol Arterial Blood Glucose Arterial Blood Ionized Calcium Urine pH Urine WBC (Auto) Vancomycin Trough Salicylates Acetaminophen Crossmatch 11/25/20 11/25/20 11/25/20 05:06 11:20 11:31 WBC 19.0 H RBC 2.28 L Hgb 7.3 L Hct 22.5 L MCV 99 H MCH MCHC RDW 18.3 H Plt Count Lymph % (Auto) Seg Neutrophils % Seg Neuts % (Manual) Lymphocytes % (Manual) Nucleated RBC % Seg Neutrophils # Seg Neutrophils # Man Lymphocytes # (Manual) Monocytes # (Manual) PT INR ABG pH POC ABG pCO2 POC ABG pO2 ABG pO2 ABG HCO3 ABG O2 Saturation ABG Base Excess ABG Hemoglobin ABG Oxyhemoglobin ABG Sodium ABG Potassium ABG Chloride ABG Glucose Oxyhemoglobin Carboxyhemoglobin Sodium Potassium Chloride Carbon Dioxide BUN Creatinine Glucose POC Glucose 125 H 106 H Lactic Acid Calcium Phosphorus Magnesium Total Creatine Kinase Troponin T Total Protein Albumin Triglycerides LDL Cholesterol Direct HDL Cholesterol Arterial Blood Glucose Arterial Blood Ionized Calcium Urine pH Urine WBC (Auto) Vancomycin Trough Salicylates Acetaminophen Crossmatch 11/25/20 11/26/20 11/26/20 16:25 09:25 12:01 WBC 20.8 H RBC 2.82 L Hgb 8.7 L Hct 27.3 L MCV 97 H MCH MCHC RDW 17.9 H Plt Count Lymph % (Auto) Seg Neutrophils % Seg Neuts % (Manual) Lymphocytes % (Manual) Nucleated RBC % Seg Neutrophils # Seg Neutrophils # Man Lymphocytes # (Manual) Monocytes # (Manual) PT INR ABG pH 7.480 H POC ABG pCO2 POC ABG pO2 78.1 L ABG pO2 ABG HCO3 ABG O2 Saturation ABG Base Excess ABG Hemoglobin 8.5 L ABG Oxyhemoglobin ABG Sodium ABG Potassium ABG Chloride ABG Glucose 114 H Oxyhemoglobin Carboxyhemoglobin Sodium Potassium Chloride Carbon Dioxide BUN Creatinine Glucose POC Glucose 130 H Lactic Acid Calcium Phosphorus Magnesium Total Creatine Kinase Troponin T Total Protein Albumin Triglycerides LDL Cholesterol Direct HDL Cholesterol Arterial Blood Glucose 114 H Arterial Blood Ionized Calcium 4.5 L Urine pH Urine WBC (Auto) Vancomycin Trough Salicylates Acetaminophen Crossmatch 11/26/20 11/26/20 11/27/20 16:55 23:43 05:55 WBC 18.1 H RBC 2.48 L Hgb 7.8 L Hct 23.9 L MCV 97 H MCH MCHC RDW 17.7 H Plt Count Lymph % (Auto) Seg Neutrophils % Seg Neuts % (Manual) Lymphocytes % (Manual) Nucleated RBC % Seg Neutrophils # Seg Neutrophils # Man Lymphocytes # (Manual) Monocytes # (Manual) PT INR ABG pH POC ABG pCO2 POC ABG pO2 ABG pO2 ABG HCO3 ABG O2 Saturation ABG Base Excess ABG Hemoglobin ABG Oxyhemoglobin ABG Sodium ABG Potassium ABG Chloride ABG Glucose Oxyhemoglobin Carboxyhemoglobin Sodium Potassium Chloride Carbon Dioxide BUN Creatinine Glucose POC Glucose 123 H 110 H Lactic Acid Calcium Phosphorus Magnesium Total Creatine Kinase Troponin T Total Protein Albumin Triglycerides LDL Cholesterol Direct HDL Cholesterol Arterial Blood Glucose Arterial Blood Ionized Calcium Urine pH Urine WBC (Auto) Vancomycin Trough Salicylates Acetaminophen Crossmatch 11/27/20 11/27/20 11/27/20 05:55 11:41 18:08 WBC RBC Hgb Hct MCV MCH MCHC RDW Plt Count Lymph % (Auto) Seg Neutrophils % Seg Neuts % (Manual) Lymphocytes % (Manual) Nucleated RBC % Seg Neutrophils # Seg Neutrophils # Man Lymphocytes # (Manual) Monocytes # (Manual) PT INR ABG pH POC ABG pCO2 POC ABG pO2 ABG pO2 ABG HCO3 ABG O2 Saturation ABG Base Excess ABG Hemoglobin ABG Oxyhemoglobin ABG Sodium ABG Potassium ABG Chloride ABG Glucose Oxyhemoglobin Carboxyhemoglobin Sodium Potassium Chloride Carbon Dioxide 32 H BUN Creatinine 0.4 L Glucose 133 H POC Glucose 111 H 115 H Lactic Acid Calcium 7.5 L Phosphorus Magnesium Total Creatine Kinase Troponin T Total Protein 6.1 L Albumin 1.7 L Triglycerides LDL Cholesterol Direct HDL Cholesterol Arterial Blood Glucose Arterial Blood Ionized Calcium Urine pH Urine WBC (Auto) Vancomycin Trough Salicylates Acetaminophen Crossmatch 11/27/20 11/28/20 11/28/20 23:29 03:56 05:12 WBC RBC Hgb Hct MCV MCH MCHC RDW Plt Count Lymph % (Auto) Seg Neutrophils % Seg Neuts % (Manual) Lymphocytes % (Manual) Nucleated RBC % Seg Neutrophils # Seg Neutrophils # Man Lymphocytes # (Manual) Monocytes # (Manual) PT INR ABG pH 7.515 H POC ABG pCO2 POC ABG pO2 74.5 L ABG pO2 ABG HCO3 ABG O2 Saturation ABG Base Excess ABG Hemoglobin 8.4 L ABG Oxyhemoglobin ABG Sodium ABG Potassium ABG Chloride ABG Glucose 130 H Oxyhemoglobin Carboxyhemoglobin Sodium Potassium Chloride Carbon Dioxide BUN Creatinine Glucose POC Glucose 112 H 113 H Lactic Acid Calcium Phosphorus Magnesium Total Creatine Kinase Troponin T Total Protein Albumin Triglycerides LDL Cholesterol Direct HDL Cholesterol Arterial Blood Glucose 130 H Arterial Blood Ionized Calcium 4.5 L Urine pH Urine WBC (Auto) Vancomycin Trough Salicylates Acetaminophen Crossmatch 11/28/20 11/28/20 11/29/20 06:24 23:44 05:33 WBC RBC Hgb Hct MCV MCH MCHC RDW Plt Count Lymph % (Auto) Seg Neutrophils % Seg Neuts % (Manual) Lymphocytes % (Manual) Nucleated RBC % Seg Neutrophils # Seg Neutrophils # Man Lymphocytes # (Manual) Monocytes # (Manual) PT INR ABG pH POC ABG pCO2 POC ABG pO2 ABG pO2 ABG HCO3 ABG O2 Saturation ABG Base Excess ABG Hemoglobin ABG Oxyhemoglobin ABG Sodium ABG Potassium ABG Chloride ABG Glucose Oxyhemoglobin Carboxyhemoglobin Sodium 136 L Potassium Chloride Carbon Dioxide BUN Creatinine 0.4 L Glucose 124 H POC Glucose 112 H 107 H Lactic Acid Calcium 7.4 L Phosphorus Magnesium Total Creatine Kinase Troponin T Total Protein Albumin Triglycerides LDL Cholesterol Direct HDL Cholesterol Arterial Blood Glucose Arterial Blood Ionized Calcium Urine pH Urine WBC (Auto) Vancomycin Trough Salicylates Acetaminophen Crossmatch 11/29/20 11:59 WBC RBC Hgb Hct MCV MCH MCHC RDW Plt Count Lymph % (Auto) Seg Neutrophils % Seg Neuts % (Manual) Lymphocytes % (Manual) Nucleated RBC % Seg Neutrophils # Seg Neutrophils # Man Lymphocytes # (Manual) Monocytes # (Manual) PT INR ABG pH POC ABG pCO2 POC ABG pO2 ABG pO2 ABG HCO3 ABG O2 Saturation ABG Base Excess ABG Hemoglobin ABG Oxyhemoglobin ABG Sodium ABG Potassium ABG Chloride ABG Glucose Oxyhemoglobin Carboxyhemoglobin Sodium Potassium Chloride Carbon Dioxide BUN Creatinine Glucose POC Glucose 121 H Lactic Acid Calcium Phosphorus Magnesium Total Creatine Kinase Troponin T Total Protein Albumin Triglycerides LDL Cholesterol Direct HDL Cholesterol Arterial Blood Glucose Arterial Blood Ionized Calcium Urine pH Urine WBC (Auto) Vancomycin Trough Salicylates Acetaminophen Crossmatch Allied health notes reviewed: nursing
[2020-11-29] MEDS: ENOXAPARIN 40 MG/0.4 ML INJ SUB-Q SCH (22:01)
[2020-11-30 00:19] LABS: Blood Urea Nitrogen 18 mg/dL (9-20); Calcium 7.6 mg/dL (8.4-10.2); Hematocrit 23.1 % (35.5-45.6); Hemoglobin 7.5 gm/dl (11.8-15.2); Hemolysis Index 5; Mean Corpuscular HGB Conc 32 % (32-34); Mean Corpuscular Volume 96 fl (84-94); Platelet Count 404 K/mm3 (140-440); Red Cell Distribution Width 17.6 % (13.2-15.2)
[2020-11-30 00:24] LABS: BUN/Creatinine Ratio 45
[2020-11-30] MEDS: METOPROLOL TARTRATE 25 MG TAB PO SCH ×5 (00:34→23:25)
[2020-11-30 06:16] LABS: Blood Urea Nitrogen 21 mg/dL (9-20); Calcium 7.7 mg/dL (8.4-10.2); Hemolysis Index 7
[2020-11-30 06:29] LABS: Basophils # (Auto) 0.1 K/mm3 (0.0-0.1); Basophils % (Auto) 0.4 % (0.0-1.8); Eosinophils # (Auto) 0.1 K/mm3 (0.0-0.4); Eosinophils % (Auto) 0.5 % (0.0-4.3); Hematocrit 23.8 % (35.5-45.6); Hemoglobin 7.7 gm/dl (11.8-15.2); Lymphocytes # (Auto) 1.5 K/mm3 (1.2-5.4); Lymphocytes % (Auto) 9.5 % (13.4-35.0); Mean Corpuscular HGB Conc 32 % (32-34); Mean Corpuscular Volume 97 fl (84-94); Monocytes # (Auto) 1.6 K/mm3 (0.0-0.8); Monocytes % (Auto) 10.3 % (0.0-7.3); Platelet Count 407 K/mm3 (140-440); Red Blood Count 2.46 M/mm3 (3.65-5.03); Red Cell Distribution Width 17.2 % (13.2-15.2)
[2020-11-30 06:33] LABS: BUN/Creatinine Ratio 53
[2020-11-30] MEDS: MIDODRINE 5 MG TAB PO SCH ×3 (08:00→16:36)
[2020-11-30] MEDS: ALBUTEROL 2.5 MG/3 ML NEBU IH SCH ×3 (08:45→20:28)
--- NOTE | 2020-11-30 09:19 | Progress Note ---
Assessment and Plan Assessment and plan: This is a 75-year-old male who is a halfway resident with seizure disorder, hypertension, depression, hyperlipidemia, hypoglycemia, dysphagia, and encephalopathy who presents to the emergency department on 10/26 via EMS for tachypnea, dry mucous membranes and hypoxia. Patient was hypotensive, febrile to 103 degrees and hypoxic in the emergency department therefore he was intubated and central IV access was obtained. Patient received 3.5 L of IV fluid in the emergency department. Patient was admitted to the hospital service with consults to CCM, surgery, WOCN and ID for Sepsis, acute kidney injury, urinary tract infection, acute respiratory failure, electrolyte imbalances, infected sacral wound and bilateral pneumonia. s/p Sepsis Acute respiratory failure with Hypoxia s/p Cardiovascular shock Infected sacral wound s/p debridement with surgery Generalized anasarca possible acute diastolic congestive heart failure Anemia Afib Bilateral pleural effusion Right and left lung atelectasis secondary to mucous plug s/p Proteus bacteremia s/p MRSA pneumonia s/p Urine tract infection Leukocytosis Acute kidney injury with vasomotor Nephropathy Acute Diarrhea ?C.diff- Test was not performed SFA occlusion - Not a candidate for surgery per Vascular Hyponatremia 10/27: Patient received additional 4 L LR for fluid resuscitation and CV monitoring was initiated. Patient is on Levophed. ID added Flagyl to vancomycin and cefepime. His trach aspirate grew staph coccus aureus. At the time my examination patient the fentanyl drip was held by RN and he was on 14 MCG of Levophed. This morning he was on assist control 450/20/6/.100. We will give additional bolus of fluids with goal CVP 10-12 and repeat labs in AM. Surgery was consulted to possible debridement. 10/28: Overnight it was noted that patient went into SVT and he was given adenosine 6 mg/12 mg / 12 mg once and was started on a Cardizem drip after no response to amnio bolus and cardiology was consulted. Currently patient remains on Levophed drip and is hypotensive and received additional 2 L of bolus for goal CVP of 10-12. Infectious disease changed cefepime/Flagyl to meropenem for GNR in his blood cultures 09/04 and will continue vancomycin. Patient currently was not well controlled on max Cardizem and cardiology initiated amiodarone. Patient still is very tachycardic. Patient is hypomagnesemic and we will replet e his Mg and recheck level. We will give the patient additional to complete resolve LR this afternoon. Patient has a standing order per [facility] to bolus the patient with LR for CVP goal of 10-12. This morning he is hyperchlormeic, metabolic acidotic (bicarb drip initiated) and his BUN/creatinine slightly elevated. Patient still remains lactic acidotic. 10/29: Patient's blood culture speciated to Proteus and his tracheal aspirate is MRSA. He is currently on ceftriaxone, Flagyl and vancomycin. Patient heart rate consistently is 110-150s and cardiology has given him an amiodarone bolus today and he remains on amiodarone drip. He looks much started on IV digoxin. This morning 4 L LR bolus was ordered and we will bolus an additional 4 L of LR this afternoon. Patient still has lactic acidosis, metabolic acidosis, leukocytosis and hyperchloremia. On examination this morning patient is more edematous and he remains on Levophed and amnio drip. 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 Remains on amio, levo and sedated with fentanyl. He is hypokalemic today which was repleted, h/h 02/18 and he is being type and crossed today with 2 units PRBC ordered to be transfused. Plt drop noted, heparin discontinued and HIT ordered. Bicarb gtt discontinued. No acute events overnight. 10/31: Patient hypomagnesemia today which was repleted and cardiology has changed his IV amiodarone to p.o. Patient will get albumin per [facility]. At the time my examination patient is on assist control 450/20/6/0.40. 11/03: At the time my examination patient is on assist control 450/20/6/0.25 and sedated with fentanyl and on Levophed at 4.Patient's leukocytosis is improving he received Albumin this weekend. Patient is hypokalemic, hypomagnesemic, hypocalcemic today. We will repeat his electrolytes and recheck a BMP in the a.m. Patient received 2 units PRBC on 10/30 and his hemoglobin has been trending down. We will recheck in the a.m. 11/04: At the time of my examination patient was on Levophed 3 mcg and on VZV/CPAP 450/20/6/0.35. Patient still has leukocytosis, respiratory alkalosis, hyponatremia, hypochloremia, hypocalcemia. Today his magnesium and potassium repleted with bolus of potassium 4/magnesium 2. He received 60 mcg KCl p.o., 40 mEq of KCl IV and 2 g of magnesium sulfate. We will recheck BMP and mag and a.m. Surgery has deemed the patient to unstable for further debulking. We also consulted vascular surgery for PVD as patient has discoloration to BLE /feet. 11/05: Vascular surgery will obtain bilateral lower extremity arterial duplex to evaluate arterial flow and recommends adding as FWF to tube feedings in assisting to wean off of vasopressors. Patient has hypokalemia, hypophosphatemia and normal to low magnesium. Magnesium, potassium and phosph ate have been repleted. Patient still remains on ventilator support but on CPAP trial this morning. Patient HIT is still pending. This morning at the time of my examination patient was on assist-control 450/20/6/0.35 and he tolerated CPAP trial for 4 hours yesterday. He was on Levophed 0.5 and his rectal tube output was noted at 1000 mL. 11/06: This morning patient was on a CPAP trial and became hypoxic with SPO2 into the 80s and was switched back to assist control. Patient's vent settings are assist control tidal and 450, rate 20, PEEP 6, FiO2 0.25. Today patient has leukocytosis, hypernatremia, hyperchloremia, hypocalcemia and hypophosphatemia. We will repeat a phosphate. His free water flushes have been increased and his magnesium has been repleted again. Patient has been started on Lovenox given improvement in his platelet count and on midodrine to help keep Levophed off. I nfectious disease will continue p.o. vancomycin for total of 10 days. 11/07: Patient failed his CPAP trial yesterday and has been placed on CPAP 05/06 again this morning by RT. Overnight patient was rested on assist control tolerance by 50, rate of 20, pressure support 6 and FiO2 30%. His lab work is still pending for this morning. On repeat his phosphorus was 4.50 yesterday and repletion was discontinued. 11/08/2020; patient is off pressors currently on midodrine. Patient is on ceftriaxone and vancomycin. Patient is on assist control. Patient was evaluated by vascular surgery for peripheral vascular disease with SFA occlusion and recommend no intervention at this time. Prognosis is guarded. Patient is on 2 L of intranasal oxygen. We will put speech therapy evaluation. 11/09/2020; patient is currently off pressors and on midodrine. Continue with ceftriaxone, Flagyl and vancomycin per ID recommendation. Patient's blood culture grew Proteus mirabilis and tracheal aspirate grew MRSA. Patient was evaluated by vascular surgery for PVD with SFA occlusion and recommend no intervention at this time. Patient is on 2 L of intranasal oxygen. Currently patient is on tube feeding and follow speech therapy evaluation. 11/10: Overnight noted to have increased RR, ? Awaiting speech eval considering patient still on Tube feeds. Continue to monitor Hypernatremia. Antibiotics today will be D12/14. Will continue discharge planning on discussion with CM. Patient nonrebreather. Possibly back on congestive heart failure will need appropriate diuresis. Transferred back to [facility]. Discussed with non destructive evaluation specialist and also with cardiology. 11/11: Remains lethargic remains in respiratory distress chest x-ray shows right lung collapse likely secondary to mucous plug. Discussed with non destructive evaluation specialist will likely undergo a bronchoscopy today. We will also continue to monitor as we did suggest possible pleural effusion which we think may be less likely but if that seems to be the case we will send patient for thoracentesis following the bronchoscopy. Continue to monitor hemoglobin continue to monitor diarrhea antibiotics management per infectious disease. I did speak and update patient's cousin yesterday. Patient still with edema will await cardiology reevaluation for possible further diuresis. 11/12: Patient for Bronchoscopy today. Continue supportive care 11/13: Patient Clinically improving, tolerated Bronchoscopy yesterday. Awaiting am labs today. Overnight had bradycardia. Continue weaning oxygen. Discussed with honey producer patient did have bronchial plug plus pleural effusion but will address. Will monitor serial x-rays. Discussed with nursing staff about my discussion with the brother. Continue supportive care. PER Brother,([phone] patient has had recurrent knee aspiration. Cardiology to re-evaluate today for Bradycardia noted overnight 11/14: Patient had a repeat bronchoscopy yesterday of the right lung due to mucous plug. [employer] did have a conversation with the cousin as one of the considerations may be a trach due to recurrent pulmonary mucous plug and also significant debility for patient's overall medical condition. And his inability to maintain his airway. We will start him on a low round of D5 until diet is established. We will continue to monitor clinical status this morning. Plan discussed with nursing staff patient and also with data security administrator 11/15: Continues to show some improvement, will check CXR today. Wean oxygen as tolerated, will likely need Trach per pulmonary. WBC improving, will monitor Sodium level. Patient on dopamin. 11/16: Patient overnight required intubation due to worsening respiratory failure secondary to complete opacification of the right lung again. This has appeared to cleared up this morning following the intuabation. Cousin advised of the finding, he will try to get us all his records because he believes that the patient has had a trach done before but is not sure. Started on Pressors due to hypotension 11/17: Today general surgery was consulted for trach/PEG placement, patient grew staph and tracheal aspirate and his cefepime was stopped and [facility] ordered a trial dose of Lasix. At the time my examination patient was on 1 mcg of fentanyl and dopamine 5 mcg/kg per cardiology. He has hyperchloremia and his lab work and is anemic today at 6.6/20.2. Patient received 1 unit PRBC. We will obtain a CBC in the a.m. 11/18: No acute events reported overnight, patient was given Lasix again by [facility], surgery has requested transfusion of one 1 unit PRBC despite H/H being 7.4/23.4 and plans to do a tracheostomy and plans to perform PEG and trach placement on 11/21/2020. We will follow up BMP and CBC in the a.m. Coags ordered. 11/19: Patient's next of kin still Mr. Buckley's next of kin/POA is still undecided about trach/PEG, surgeon aware. [facility] has given the patient another dose of Lasix and he was noted to be in atrial fibrillation with RVR this morning. [facility] rdiology is aware and they have opted to resume amiodarone drip for rate control. We will obtain a BMP in the a.m. 11/20: At the time of examination patient remains on amiodarone 0.05 mcg and fentanyl 1 mcg on assist control tidal volume 500, rate 20, PEEP 6, FiO2 of 40%. Patient will have Lasix dose again. Dr. Quintanilla updated the family today. 11/21: Patient remains atrial fibrillation but is better rate controlled. Patient was taking to the OR for trach/PEG General surgery. No acute events reported overnight. Patient was given diuresed again and we will recheck a BMP in the a.m. 11/22. Patient tolerated tracheostomy. Alert no new concerns. Patient able to not that he is not in pain. 11/23 patient appears to be tolerating PEG tube feedings able to use tube feedings no new concerns over p.m. alert improving respiratory failure 11/24: No acute events overgnight. At the time my examination patient was on assist control tidal volume 500, rate 12, PEEP 6, FiO2 50%. Patient fentanyl drip discontinued and placed on IV push fentanyl 50 mcg every 2 hours. RN to remove right IJ. 11/25: Continue CPAP trials as tolerated, amiodarone decreased, midodrine and metoprolol initiated by cardiology. Patient had an episode of emesis however he denied being nauseous and did not have any emesis when trach suctioned. Patient remains afebrile. Midline was placed yesterday and IJ removed. Patient has leukocytosis but remains off of vasopressors, antibiotics and is febrile. At the time of examination patient is on assist control 21 500, rate 20, PEEP 6 and FiO2 45%. 11/26: Cardiology has increased his metoprolol and decreased his amiodarone due to soft blood pressures. Patient is adamant that he would like to go home. We will continue CPAP trials. 11/27: Patient CXR shows pulmonary edema and we will repeat Lasix. Continue CPAP trials 11/29: Patient on mechanical ventilation with s/p trach/PEG on 11/21/2020. Patient currently with PSV/CPAP mode FiO2 30%, PEEP of 6 and pressure support of 12. Continue vent weaning per pulmonary. Continue fentanyl and wean as tolerated. Tracheostomy care, secretion control and airway management. Gastrostomy tube care. Tube feedings with aspiration precautions. Continue midodrine and amiodarone. 11/30: Patient completed antibiotics. PSV trials failed yesterday. Continue PSV trials. Patient currently with PSV setting with FiO2 30%, pressure support 10 and PEEP of 6. Cont. Albuterol nebs plus CPT vest. Continue tube feedings with aspiration precautions. Tracheostomy care, secretion control and airway management. LTAC placement pending. History Interval history: No new issues overnight. Hospitalist Physical - Constitutional Vitals: Temp Pulse Resp BP Pulse Ox 98.5 F 87 13 124/76 98 11/30/20 08:00 11/30/20 09:00 11/30/20 09:00 11/30/20 09:00 11/30/20 09:00 General appearance: Present: no acute distress, other (Patient resting comfortably on vent) - EENT Eyes: Present: PERRL, EOM intact ENT: hearing intact, clear oral mucosa, dentition normal - Neck Neck: Present: supple, normal ROM - Respiratory Respiratory effort: normal Respiratory: bilateral: CTA - Cardiovascular Rhythm: regular Heart Sounds: Present: S1 & S2. Absent: gallop, rub - Extremities Extremities: no ischemia, No edema, Full ROM - Abdominal General gastrointestinal: soft, non-tender, non-distended, normal bowel sounds - Integumentary Integumentary: Present: clear, warm, dry - Neurologic Neurologic: CNII-XII intact, moves all extremities HEART Score - HEART Score EKG: Non-specific Age: > 65 Risk factors: > 3 risk factors or hx of atherosclerotic disease Troponin: Troponin T 0.123 ng/mL (0.00-0.029) H* 11/13/20 23:15 Troponin: < normal limit - Critical Actions Critical Actions: 4-6 pts:12-16.6% risk of adverse cardiac event. Should be admitted Results - Labs CBC & Chem 7: 11/30/20 05:14 11/30/20 05:14 Labs: Laboratory Last Values WBC 15.6 K/mm3 (4.5-11.0) H 11/30/20 05:14 RBC 2.46 M/mm3 (3.65-5.03) L 11/30/20 05:14 Hgb 7.7 gm/dl (11.8-15.2) L 11/30/20 05:14 Hct 23.8 % (35.5-45.6) L 11/30/20 05:14 MCV 97 fl (84-94) H 11/30/20 05:14 MCH 31 pg (28-32) 11/30/20 05:14 MCHC 32 % (32-34) 11/30/20 05:14 RDW 17.2 % (13.2-15.2) H 11/30/20 05:14 Plt Count 407 K/mm3 (140-440) 11/30/20 05:14 Lymph % (Auto) 9.5 % (13.4-35.0) L 11/30/20 05:14 Crisp % (Auto) 10.3 % (0.0-7.3) H 11/30/20 05:14 Eos % (Auto) 0.5 % (0.0-4.3) 11/30/20 05:14 Baso % (Auto) 0.4 % (0.0-1.8) 11/30/20 05:14 Lymph # (Auto) 1.5 K/mm3 (1.2-5.4) 11/30/20 05:14 Crisp # (Auto) 1.6 K/mm3 (0.0-0.8) H 11/30/20 05:14 Eos # (Auto) 0.1 K/mm3 (0.0-0.4) 11/30/20 05:14 Baso # (Auto) 0.1 K/mm3 (0.0-0.1) 11/30/20 05:14 Add Manual Diff Complete 11/23/20 10:23 Total Counted 100 11/23/20 10:23 Seg Neutrophils % 79.3 % (40.0-70.0) H 11/30/20 05:14 Seg Neuts % (Manual) 94.0 % (40.0-70.0) H 11/23/20 10:23 Band Neutrophils % 17.0 % 10/27/20 03:30 Lymphocytes % (Manual) 5.0 % (13.4-35.0) L 11/23/20 10:23 Monocytes % (Manual) 1.0 % (0.0-7.3) 11/23/20 10:23 Eosinophils % (Manual) 2.0 % (0.0-4.3) 10/27/20 03:30 Metamyelocytes % 4.0 % 10/27/20 03:30 Nucleated RBC % Not Reportable 11/23/20 10:23 Seg Neutrophils # 12.3 K/mm3 (1.8-7.7) H 11/30/20 05:14 Seg Neutrophils # Man 10.6 K/mm3 (1.8-7.7) H 11/23/20 10:23 Band Neutrophils # 0.0 K/mm3 11/23/20 10:23 Lymphocytes # (Manual) 0.6 K/mm3 (1.2-5.4) L 11/23/20 10:23 Abs React Lymphs (Man) 0.0 K/mm3 11/23/20 10:23 Monocytes # (Manual) 0.1 K/mm3 (0.0-0.8) 11/23/20 10:23 Eosinophils # (Manual) 0.0 K/mm3 (0.0-0.4) 11/23/20 10:23 Basophils # (Manual) 0.0 K/mm3 (0.0-0.1) 11/23/20 10:23 Metamyelocytes # 0.0 K/mm3 11/23/20 10:23 Myelocytes # 0.0 K/mm3 11/23/20 10:23 Promyelocytes # 0.0 K/mm3 11/23/20 10:23 Blast Cells # 0.0 K/mm3 11/23/20 10:23 WBC Morphology Not Reportable 11/23/20 10:23 Hypersegmented Neuts Not Reportable 11/23/20 10:23 Hyposegmented Neuts Not Reportable 11/23/20 10:23 Hypogranular Neuts Not Reportable 11/23/20 10:23 Smudge Cells Not Reportable 11/23/20 10:23 Toxic Granulation Not Reportable 11/23/20 10:23 Toxic Vacuolation Not Reportable 11/23/20 10:23 Dohle Bodies Not Reportable 11/23/20 10:23 Pelger-Huet Anomaly Not Reportable 11/23/20 10:23 Kassi Rods Not Reportable 11/23/20 10:23 Platelet Estimate Consistent w auto 11/23/20 10:23 Clumped Platelets Not Reportable 11/23/20 10:23 Plt Clumps, EDTA Not Reportable 11/23/20 10:23 Large Platelets Not Reportable 11/23/20 10:23 Giant Platelets Not Reportable 11/23/20 10:23 Platelet Satelliting Not Reportable 11/23/20 10:23 Plt Morphology Comment Not Reportable 11/23/20 10:23 RBC Morphology Normal 11/23/20 10:23 Dimorphic RBCs Not Reportable 11/23/20 10:23 Polychromasia Not Reportable 11/23/20 10:23 Hypochromasia Not Reportable 11/23/20 10:23 Poikilocytosis Not Reportable 11/23/20 10:23 Anisocytosis Not Reportable 11/23/20 10:23 Microcytosis Not Reportable 11/23/20 10:23 Macrocytosis Not Reportable 11/23/20 10:23 Spherocytes Not Reportable 11/23/20 10:23 Pappenheimer Bodies Not Reportable 11/23/20 10:23 Sickle Cells Not Reportable 11/23/20 10:23 Target Cells Not Reportable 11/23/20 10:23 Tear Drop Cells Not Reportable 11/23/20 10:23 Ovalocytes Not Reportable 11/23/20 10:23 Helmet Cells Not Reportable 11/23/20 10:23 [place] Bodies Not Reportable 11/23/20 10:23 [place] Rings Not Reportable 11/23/20 10:23 Rhea Cells Not Reportable 11/23/20 10:23 Bite Cells Not Reportable 11/23/20 10:23 Crenated Cell Not Reportable 11/23/20 10:23 Elliptocytes Not Reportable 11/23/20 10:23 Acanthocytes (Spur) Not Reportable 11/23/20 10:23 Rouleaux Not Reportable 11/23/20 10:23 Hemoglobin C Crystals Not Reportable 11/23/20 10:23 Schistocytes Not Reportable 11/23/20 10:23 Malaria parasites Not Reportable 11/23/20 10:23 Richard Bodies Not Reportable 11/23/20 10:23 Hem Pathologist Commnt No 11/23/20 10:23 PT 14.7 Sec. (12.2-14.9) 11/19/20 06:36 INR 1.15 (0.87-1.13) H 11/19/20 06:36 APTT 27.9 Sec. (24.2-36.6) 10/26/20 17:25 Heparin Anti-Xa, Unfract Negative (Negative) 11/03/20 11:01 ABG pH 7.515 (7.320-7.450) H 11/28/20 03:56 POC ABG pCO2 38.5 mmHg (32.0-48.0) 11/28/20 03:56 ABG pCO2 43.4 mm Hg 11/19/20 Unknown POC ABG pO2 74.5 mmHg (83-108) L 11/28/20 03:56 ABG pO2 72.4 mm Hg (80.0-90.0) L 11/19/20 Unknown POC ABG HCO3 30.4 11/28/20 03:56 ABG HCO3 26.9 mmol/L (20.0-26.0) H 11/19/20 Unknown ABG O2 Saturation 95.8 (0-100) 11/28/20 03:56 ABG O2 Content 11.3 (0.0-44) 11/19/20 Unknown POC ABG Base Excess 6.9 11/28/20 03:56 ABG Base Excess 2.0 mmol/L (-2.0-3.0) 11/19/20 Unknown ABG Hemoglobin 8.4 (12.0-17.5) L 11/28/20 03:56 ABG Oxyhemoglobin 94.8 (94-98) 11/28/20 03:56 ABG Carboxyhemoglobin 2.0 % (0.0-5.0) 11/19/20 Unknown ABG Methemoglobin 0.3 (0.0-1.5) 11/28/20 03:56 ABG Sodium 136.5 mmol/L (136.0-145.0) 11/28/20 03:56 ABG Potassium 3.9 mmol/L (3.40-4.50) 11/28/20 03:56 ABG Chloride 104.0 mmol/L (98-107) 11/28/20 03:56 ABG Glucose 130 mg/dL (65-95) H 11/28/20 03:56 Oxyhemoglobin 94.1 % (95.0-99.0) L 11/19/20 Unknown Carboxyhemoglobin 0.7 (0.5-1.5) 11/28/20 03:56 FiO2 30 % 11/19/20 Unknown FiO2 % 30.0 11/28/20 03:56 Sodium 138 mmol/L (137-145) 11/30/20 05:14 Potassium 4.0 mmol/L (3.6-5.0) 11/30/20 05:14 Chloride 103.0 mmol/L (98-107) 11/30/20 05:14 Carbon Dioxide 30 mmol/L (22-30) 11/30/20 05:14 Anion Gap 9 mmol/L 11/30/20 05:14 BUN 21 mg/dL (9-20) H 11/30/20 05:14 Creatinine 0.4 mg/dL (0.8-1.3) L 11/30/20 05:14 Estimated GFR > 60 ml/min 11/30/20 05:14 BUN/Creatinine Ratio 53 % 11/30/20 05:14 Glucose 126 mg/dL (75-100) H 11/30/20 05:14 POC Glucose 120 mg/dL (70-105) H 11/30/20 06:10 Hemoglobin A1c 5.5 % (4-6) 10/27/20 04:42 Lactic Acid 4.30 mmol/L (0.7-2.0) H* 10/31/20 Unknown Calcium 7.7 mg/dL (8.4-10.2) L 11/30/20 05:14 Phosphorus 4.50 mg/dL (2.5-4.5) D 11/06/20 13:03 Magnesium 1.70 mg/dL (1.7-2.3) 11/21/20 09:47 Total Bilirubin < 0.20 mg/dL (0.1-1.2) 11/27/20 05:55 AST 8 units/L (5-40) 11/27/20 05:55 ALT 8 units/L (7-56) 11/27/20 05:55 Alkaline Phosphatase 87 units/L (35-129) 11/27/20 05:55 Total Creatine Kinase 31 units/L (55-170) L 10/26/20 17:28 Troponin T 0.123 ng/mL (0.00-0.029) H* 11/13/20 23:15 Total Protein 6.1 g/dL (6.3-8.2) L 11/27/20 05:55 Albumin 1.7 g/dL (3.9-5) L 11/27/20 05:55 Albumin/Globulin Ratio 0.4 % 11/27/20 05:55 Triglycerides 190 mg/dL (2-149) H 10/26/20 17:25 Cholesterol 92 mg/dL (50-199) 10/26/20 17:25 LDL Cholesterol Direct 33 mg/dL (50-130) L 10/26/20 17:25 HDL Cholesterol 18 mg/dL (40-59) L 10/26/20 17:25 Cholesterol/HDL Ratio 5.11 % 10/26/20 17:25 Serotonin Release Assay See scanned results 11/03/20 11:01 TSH 1.490 mlU/mL (0.270-4.200) 10/26/20 17:28 Arterial Blood Glucose 130 mg/dL (65-95) H 11/28/20 03:56 Arterial Blood Ionized Calcium 4.5 mg/dL (4.6-5.3) L 11/28/20 03:56 Urine Color Yellow (Yellow) 10/27/20 Unknown Urine Turbidity Turbid (Clear) 10/27/20 Unknown Urine pH 8.0 (5.0-7.0) H 10/27/20 Unknown Ur Specific [place] 1.020 (1.003-1.030) 10/27/20 Unknown Urine Protein >500 mg/dL (Negative) 10/27/20 Unknown Urine Glucose (UA) Neg mg/dL (Negative) 10/27/20 Unknown Urine Ketones Neg mg/dL (Negative) 10/27/20 Unknown Urine Blood Sm (Negative) 10/27/20 Unknown Urine Nitrite Neg (Negative) 10/27/20 Unknown Urine Bilirubin Neg (Negative) 10/27/20 Unknown Urine Urobilinogen < 2.0 mg/dL (<2.0) 10/27/20 Unknown Ur Leukocyte Esterase Mod (Negative) 10/27/20 Unknown Urine WBC (Auto) > 182.0 /HPF (0.0-6.0) H 10/27/20 Unknown Urine RBC (Auto) 35.0 /HPF (0.0-6.0) 10/27/20 Unknown Urine WBC Clumps 3+ /HPF 10/27/20 Unknown Urine Mucus 3+ /HPF 10/27/20 Unknown Urine Yeast (Budding) 3+ /HPF 10/27/20 Unknown Vancomycin Trough 18.0 ug/mL (5.0-20.0) 11/19/20 09:06 Salicylates < 0.3 mg/dL (2.8-20.0) L 10/26/20 17:28 Acetaminophen 5.0 ug/mL (10.0-30.0) L 10/26/20 17:28 Heparin-induced Plt Ab Negative (Negative) 11/03/20 11:01 UF Heparin High Dose 0 % Release 11/03/20 11:01 MOISES UFH Low Dose 0.1 2 % Release 11/03/20 11:01 MOISES UFH Low Dose 0.5 0 % Release 11/03/20 11:01 Coronavirus (PCR) Negative (Negative) 10/27/20 Unknown Blood Type O POSITIVE 11/17/20 11:10 Antibody Screen Negative 11/17/20 11:10 Crossmatch See Detail 11/17/20 11:10 Rivas/IV: Voiding Method Indwelling Catheter Active Medications - Current Medications Current Medications: Generic Name Dose Route Start Last Admin Trade Name Freq PRN Reason Stop Dose Admin Acetaminophen 650 mg 10/26/20 22:22 11/27/20 20:28 Acetaminophen 325 Mg Tab PO 650 mg Q4H PRN Administration Pain MILD(1-3)/Fever >100.5/TIERNEY Albuterol 2.5 mg 11/11/20 14:00 11/30/20 08:45 Albuterol 2.5 Mg/3 Ml Nebu IH 2.5 mg TIDRT MARSHALL Administration Amiodarone HCl 200 mg 11/25/20 10:00 11/29/20 22:01 Amiodarone 200 Mg Tab PO 200 mg BID MARSHALL Administration Lipase/Protease/Amylase 1 each 10/28/20 13:18 Lipase 10,500/Protease 25,000/Amylase 43,750 (Units) Dr Casper FEEDTUBE PRN PRN For Clogged Feeding Tube Enoxaparin Sodium 40 mg 11/22/20 22:00 11/29/20 22:01 Enoxaparin 40 Mg/0.4 Ml Inj SUB-Q 40 mg QDAY@2200 MARSHALL Administration Protocol Famotidine 20 mg 11/24/20 22:00 11/29/20 22:01 Famotidine 20 Mg Tab PO 20 mg BID MARSHALL Administration Fentanyl 50 mcg 11/15/20 22:30 11/28/20 01:00 Fentanyl 100 Mcg/2 Ml Inj IV 50 mcg Q10MIN PRN Administration ANALGESIA Hydrophilic Ointment 1 applic 11/15/20 22:30 Lip Therapy Vaseline TP Q2HR PRN Dry Lips Norepinephrine 4 mg in 250 mls @ 7.5 mls/hr 11/15/20 23:45 11/17/20 01:37 Levophed Drip 4 Mg/Ns 250 Ml IV 0 mcg/min TITR MARSHALL 0 mls/hr Titration Protocol 2 MCG/MIN Metoprolol Tartrate 12.5 mg 11/26/20 12:00 11/30/20 05:52 Metoprolol Tartrate 25 Mg Tab PO 12.5 mg Q6HR MARSHALL Administration Midodrine 10 mg 11/06/20 12:00 11/29/20 16:49 Midodrine 5 Mg Tab PO 10 mg TID@0800,1200,1600 MARSHALL Administration Multi-Ingred Cream/Lotion/Oil/Oint 1 applic 11/15/20 22:30 Mineral Oil/Petrolatum, White Ophth Oint 3.5 Gm OU Q4HR PRN Dry Eye(s) Simple Syrup 15 ml 10/28/20 13:18 11/10/20 16:01 Simple Syrup 15 Ml FEEDTUBE 15 ml PRN PRN Administration Hypoglycemia Simple Syrup 30 ml 10/28/20 13:18 Simple Syrup 15 Ml FEEDTUBE PRN PRN Hypoglycemia Sodium Bicarbonate 325 mg 10/28/20 13:18 Sodium Bicarbonate 325 Mg Tab FEEDTUBE PRN PRN For Clogged Feeding Tube Sodium Hypochlorite 1 applic 10/28/20 10:00 11/29/20 22:01 Sodium Hypochlorite, [place]'s 1/2 Strength (0.25%) 473 Ml Topical Soln TP 1 applicatio BID MARSHALL Administration Nutrition/Malnutrition Assess - Dietary Evaluation Nutrition/Malnutrition Findings: Nutrition Notes Start: 10/27/20 09:15 Freq: Status: Active Protocol: Document 11/27/20 14:29 CW (Rec: 11/27/20 14:37 CW [id number]) Nutrition Notes Initial or Follow up Reassessment Current Diagnosis Acute Kidney Injury,Decubitus( Pressure Ulcer),Sepsis, Hypertension,Respiratory Failure,Hyperlipidemia Other Pertinent Diagnosis AMS, MRSA, Encephalopathy, Metabiloc Acidosis, pneu ,FTT Current Diet Vital AF at 70 ml/hr Labs/Tests reviewed Pertinent Medications reviewed Height 6 ft 2 in Weight 85 kg [place] Body Weight (kg) 86.36 BMI 24.0 Weight Status Obese Subjective/Other Information F/U for TF change, tolerance, and at goal. Pt remains on mechanical vent. TF Vital AF is running at goal of 70 ml/hr and is being well tolerated. No recent events of emesis Percent of energy/protein needs met: 100%/95% Burn Absent Trauma Absent GI Symptoms Diarrhea Difficulty In Swallowing,Chewing Skin Integrity/Comment Multiple pressure ulcer,1 infected Current % PO Negligible Minimum of two criteria No Fluid Accumulation Mild (non-severe) #2 Nutrition Diagnosis Increased nutrient needs ( specify in comment below) Diagnosis Progress(for reassessment Continues documentation) #1 Nutrition Diagnosis Inadequate oral intake Diagnosis Progress(for reassessment Continues documentation) Is patient on ventilator? Yes Is Patient Ambulatory and/or Out of Bed No REE-([facility]-confined to bed) 97 Calculation Used for Recommendations [facility] Additional Notes protein needs: 133 - 167g(1.2 - 1.5 g/kgAdBW 111) Fluid needs 1 ml/kcal Nutrition Intervention Change Diet Order: Continue Nutrition Support: Vital AF at 70 ml/hr with a free water flush of 115 ml q4h Kcal 2,016 Protein (gm) 126 Fluid (mL) 1,362 Goal #1 TF change and tolerance Goal #2 Meet at least 75% EER and protein needs via TF Goal #3 wound healing Anticipated Discharge Needs: TF Follow-Up By: 12/02/20 Additional Comments F/U for TF tolerance
[2020-11-30] MEDS: FAMOTIDINE 20 MG TAB PO SCH ×2 (09:49→21:04)
[2020-11-30] MEDS: AMIODARONE 200 MG TAB PO SCH ×2 (10:01→21:04)
[2020-11-30] MEDS: SODIUM HYPOCHLORITE, DAKIN'S 1/2 STRENGTH (0.25%) 473 ML TOPICAL SOLN TP SCH ×3 (11:32→21:04)
--- NOTE | 2020-11-30 11:55 | Progress Note ---
Assessment and Plan Cultures: 10/26/2020 tracheal aspirate culture: MRSA 10/26/2020 blood culture: Proteus 10/27/2020 urine culture: Mixed hien 11/15/2020 sputum culture: MRSA A/P: 75-year-old male, longterm resident with seizure disorder, hypertension, depression, hyperlipidemia, chronic encephalopathy was sent to the hospital with worsening mental status: #Septic shock: probably from pneumonia. Resolved, leukocytosis improving. Likely multifactorial due to ischemic feet/digits #Acute hypoxic respiratory failure: on the vent, s/p trach. #Proteus bacteremia: multifactorial from infected sacral decubitus ulcer, bilateral pneumonia, UTI. S/P abx. #Acute diarrhea: ?C. difficile, improved on vancomycin p.o. Diarrhea improved, Cdiff test was not able to be done. #Necrotic, infected sacral decubitus ulcer: underwent debridement 10/29/2020, also noted to have brittle coccyx consistent with osteomyelitis. s/p abx. #UTI: UA with significant pyuria. Culture with mixed hien. S/P abx. #FAZAL: resolved. #PVD: SFA occlusion. Not a candidate for revascularization per vascular Recs: Continue wound care No indication for antibiotics at this time Guarded prognosis will follow Hazel Wen MD [facility] ([facility]) Office [phone] Subjective Date of service: 11/30/20 Principal diagnosis: Acute Resp Fail, PNA, Septic Shock, Sacral Ulcer, AF with RVR Interval history: Remains afebrile, complaints of abdominal pain. Remains on the vent via trach Objective - Exam Narrative Exam: General appearance: alert in NAD Eyes: anicteric sclerae, moist conjunctivae; no lid-lag; PERRLA HENT: Normocephalic, Atraumatic; normal external ears, nares open, oropharynx l imited Neck: Trach in place Lungs: Diminished breath sound bilaterally CV: RRR Abdomen: Soft, nontender PEG in place Extremities: Bilateral upper extremity and lower extremity marked edema, multiple wounds covered with dressings Skin: No rash. Extensive scrotal edema Psych: No agitated Neuro: Alert, open eyes, follows commands - Constitutional Vitals: Vital Signs Temp Pulse Resp BP Pulse Ox 98.5 F 93 H 30 H 146/88 93 11/30/20 08:00 11/30/20 11:00 11/30/20 11:00 11/30/20 11:00 11/30/20 10:30 Temperature -Last 24 Hours Temperature 98.5 F Temperature 98.6 F Temperature 98.6 F Temperature 98.4 F Temperature 98.8 F Temperature 98.8 F - Labs CBC & Chem 7: 11/30/20 05:14 11/30/20 05:14 Labs: Abnormal lab results 11/29/20 11/29/20 11/29/20 Range/Units 11:59 23:16 23:16 WBC 15.5 H (4.5-11.0) K/mm3 RBC 2.40 L (3.65-5.03) M/mm3 Hgb 7.5 L (11.8-15.2) gm/dl Hct 23.1 L (35.5-45.6) % MCV 96 H (84-94) fl RDW 17.6 H (13.2-15.2) % Lymph % (Auto) (13.4-35.0) % [place] % (Auto) (0.0-7.3) % [place] # (Auto) (0.0-0.8) K/mm3 Seg Neutrophils % (40.0-70.0) % Seg Neutrophils # (1.8-7.7) K/mm3 Sodium 135 L (137-145) mmol/L Carbon Dioxide 31 H (22-30) mmol/L BUN (9-20) mg/dL Creatinine 0.4 L (0.8-1.3) mg/dL Glucose 110 H (75-100) mg/dL POC Glucose 121 H (70-105) mg/dL Calcium 7.6 L (8.4-10.2) mg/dL 11/30/20 11/30/20 11/30/20 Range/Units 00:14 05:14 05:14 WBC 15.6 H (4.5-11.0) K/mm3 RBC 2.46 L (3.65-5.03) M/mm3 Hgb 7.7 L (11.8-15.2) gm/dl Hct 23.8 L (35.5-45.6) % MCV 97 H (84-94) fl RDW 17.2 H (13.2-15.2) % Lymph % (Auto) 9.5 L (13.4-35.0) % [place] % (Auto) 10.3 H (0.0-7.3) % [place] # (Auto) 1.6 H (0.0-0.8) K/mm3 Seg Neutrophils % 79.3 H (40.0-70.0) % Seg Neutrophils # 12.3 H (1.8-7.7) K/mm3 Sodium (137-145) mmol/L Carbon Dioxide (22-30) mmol/L BUN 21 H (9-20) mg/dL Creatinine 0.4 L (0.8-1.3) mg/dL Glucose 126 H (75-100) mg/dL POC Glucose 109 H (70-105) mg/dL Calcium 7.7 L (8.4-10.2) mg/dL 11/30/20 Range/Units 06:10 WBC (4.5-11.0) K/mm3 RBC (3.65-5.03) M/mm3 Hgb (11.8-15.2) gm/dl Hct (35.5-45.6) % MCV (84-94) fl RDW (13.2-15.2) % Lymph % (Auto) (13.4-35.0) % [place] % (Auto) (0.0-7.3) % [place] # (Auto) (0.0-0.8) K/mm3 Seg Neutrophils % (40.0-70.0) % Seg Neutrophils # (1.8-7.7) K/mm3 Sodium (137-145) mmol/L Carbon Dioxide (22-30) mmol/L BUN (9-20) mg/dL Creatinine (0.8-1.3) mg/dL Glucose (75-100) mg/dL POC Glucose 120 H (70-105) mg/dL Calcium (8.4-10.2) mg/dL
[2020-11-30] MEDS: ACETAMINOPHEN 325 MG TAB PO PRN (12:01)
--- NOTE | 2020-11-30 15:48 | Progress Note ---
Assessment and Plan Assessment and Plan Imp: 1. UTI/bacteremia 2. Aspiration/MRSA pneumonia 3. Severe sepsis 4. FAZAL 5. Acute respiratory failure, hypoxia 6. Hypernatremia 7. Poor airway clearance Rec: 1. Finished ABX; monitor closely; ID following 2. Cont. Albuterol nebs plus CPT vest 3. TFs 4. Transfuse if H/H less than 7.0/21.0 5. Lovenox and Pepcid for PPx 6. CXR reviewed no significant change possible fluid overload 7. Likely would benefit from more diuresis 8. PSV trials failed back on assist control. Wean ventilator as tolerated 9. LTAC placement pending 10. CCT 31 minutes Subjective Date of service: 11/30/20 Principal diagnosis: Acute Resp Fail, PNA, Septic Shock, Sacral Ulcer, AF with RVR Interval history: Patient awake and responsive. Could not tolerate PSV because of high respiratory rate. Back on assist control mode for last couple of days. Complain of abdominal pain earlier today but that seems to have resolved Objective Vital Signs - 12hr 11/30/20 11/30/20 11/30/20 04:00 04:26 04:30 Temperature Pulse Rate 101 H 100 H 95 H Pulse Rate [ Anterior Bilateral Throughout] Pulse Rate [ 89 From Monitor] Respiratory 20 26 H Rate Respiratory Rate [Anterior Bilateral Throughout] Blood Pressure 128/72 128/72 131/70 O2 Sat by Pulse 93 100 94 Oximetry O2 Sat by Pulse Oximetry [ Assessment] 11/30/20 11/30/20 11/30/20 05:00 05:30 05:52 Temperature Pulse Rate 99 H 93 H 94 H Pulse Rate [ Anterior Bilateral Throughout] Pulse Rate [ From Monitor] Respiratory 14 18 Rate Respiratory Rate [Anterior Bilateral Throughout] Blood Pressure 123/88 117/73 117/73 O2 Sat by Pulse 92 94 Oximetry O2 Sat by Pulse Oximetry [ Assessment] 11/30/20 11/30/20 11/30/20 06:00 06:30 07:00 Temperature Pulse Rate 95 H 89 89 Pulse Rate [ Anterior Bilateral Throughout] Pulse Rate [ From Monitor] Respiratory 18 16 15 Rate Respiratory Rate [Anterior Bilateral Throughout] Blood Pressure 120/74 119/81 125/78 O2 Sat by Pulse 93 95 94 Oximetry O2 Sat by Pulse Oximetry [ Assessment] 11/30/20 11/30/20 11/30/20 07:30 07:44 08:00 Temperature 98.5 F Pulse Rate 93 H 89 Pulse Rate [ Anterior Bilateral Throughout] Pulse Rate [ 89 From Monitor] Respiratory 15 21 Rate Respiratory Rate [Anterior Bilateral Throughout] Blood Pressure 120/75 120/71 O2 Sat by Pulse 94 98 Oximetry O2 Sat by Pulse Oximetry [ Assessment] 11/30/20 11/30/20 11/30/20 08:30 08:43 09:00 Temperature Pulse Rate 95 H 98 H 87 Pulse Rate [ Anterior Bilateral Throughout] Pulse Rate [ From Monitor] Respiratory 23 30 H 13 Rate Respiratory Rate [Anterior Bilateral Throughout] Blood Pressure 123/78 123/78 124/76 O2 Sat by Pulse 96 97 98 Oximetry O2 Sat by Pulse Oximetry [ Assessment] 11/30/20 11/30/20 11/30/20 09:15 09:16 09:30 Temperature Pulse Rate 104 H Pulse Rate [ 105 H Anterior Bilateral Throughout] Pulse Rate [ From Monitor] Respiratory 23 Rate Respiratory 32 H Rate [Anterior Bilateral Throughout] Blood Pressure 127/82 O2 Sat by Pulse 94 Oximetry O2 Sat by Pulse 98 Oximetry [ Assessment] 11/30/20 11/30/20 11/30/20 10:00 10:30 11:00 Temperature Pulse Rate 106 H 98 H 93 H Pulse Rate [ Anterior Bilateral Throughout] Pulse Rate [ From Monitor] Respiratory 10 L 24 30 H Rate Respiratory Rate [Anterior Bilateral Throughout] Blood Pressure 150/99 141/87 146/88 O2 Sat by Pulse 91 93 Oximetry O2 Sat by Pulse Oximetry [ Assessment] 11/30/20 11/30/20 11/30/20 11:30 11:58 12:00 Temperature 98.2 F Pulse Rate 100 H 110 H 103 H Pulse Rate [ Anterior Bilateral Throughout] Pulse Rate [ 96 H From Monitor] Respiratory 15 15 Rate Respiratory Rate [Anterior Bilateral Throughout] Blood Pressure 148/84 146/88 153/100 O2 Sat by Pulse 94 88 Oximetry O2 Sat by Pulse Oximetry [ Assessment] 11/30/20 11/30/20 11/30/20 12:12 12:14 12:30 Temperature Pulse Rate 102 H 101 H Pulse Rate [ Anterior Bilateral Throughout] Pulse Rate [ From Monitor] Respiratory 32 H 30 H Rate Respiratory Rate [Anterior Bilateral Throughout] Blood Pressure 153/100 146/83 O2 Sat by Pulse 92 93 Oximetry O2 Sat by Pulse 92 Oximetry [ Assessment] 11/30/20 11/30/2021 13:00 13:30 14:00 Temperature Pulse Rate 92 H 89 86 Pulse Rate [ Anterior Bilateral Throughout] Pulse Rate [ From Monitor] Respiratory 31 H 27 H 31 H Rate Respiratory Rate [Anterior Bilateral Throughout] Blood Pressure 136/82 137/80 142/80 O2 Sat by Pulse 95 95 95 Oximetry O2 Sat by Pulse Oximetry [ Assessment] 11/30/20 11/30/20 14:30 15:00 Temperature Pulse Rate 96 H 87 Pulse Rate [ Anterior Bilateral Throughout] Pulse Rate [ From Monitor] Respiratory 31 H 23 Rate Respiratory Rate [Anterior Bilateral Throughout] Blood Pressure 142/80 144/84 O2 Sat by Pulse 94 Oximetry O2 Sat by Pulse Oximetry [ Assessment] Constitutional: alert, other (trach on vent) Eyes: non-icteric ENT: oropharynx moist Neck: supple Effort: normal Ascultation: Bilateral: clear, rhonchi Percussion: Bilateral: not dull Cardiovascular: regular rate and rhythm (no mrg) Gastrointestinal: normoactive bowel sounds, soft, non-tender Extremities: no cyanosis, cool, anasarca Neurologic: normal mental status, non-focal exam Psychiatric: mood appropriate, affect normal CBC and BMP: 11/30/20 05:14 11/30/20 05:14 ABG, PT/INR, D-dimer: ABG ABG pH 7.515 (7.320-7.450) H 11/28/20 03:56 POC ABG pCO2 38.5 mmHg (32.0-48.0) 11/28/20 03:56 ABG pCO2 43.4 mm Hg 11/19/20 Unknown POC ABG pO2 74.5 mmHg (83-108) L 11/28/20 03:56 ABG pO2 72.4 mm Hg (80.0-90.0) L 11/19/20 Unknown POC ABG HCO3 30.4 11/28/20 03:56 ABG O2 Saturation 95.8 (0-100) 11/28/20 03:56 PT/INR, D-dimer PT 14.7 Sec. (12.2-14.9) 11/19/20 06:36 INR 1.15 (0.87-1.13) H 11/19/20 06:36 Abnormal lab findings: Abnormal Labs 10/26/20 10/26/20 10/26/20 17:25 17:25 17:25 WBC 23.3 H RBC 3.10 L Hgb 9.6 L Hct 30.3 L MCV 98 H MCH MCHC RDW 17.4 H Plt Count 521 H Lymph % (Auto) [place] % (Auto) [place] # (Auto) Seg Neutrophils % Seg Neuts % (Manual) 78.0 H Lymphocytes % (Manual) 11.0 L Nucleated RBC % Seg Neutrophils # Seg Neutrophils # Man 18.2 H Lymphocytes # (Manual) Monocytes # (Manual) 1.4 H PT INR ABG pH POC ABG pCO2 POC ABG pO2 ABG pO2 ABG HCO3 ABG O2 Saturation ABG Base Excess ABG Hemoglobin ABG Oxyhemoglobin ABG Sodium ABG Potassium ABG Chloride ABG Glucose Oxyhemoglobin Carboxyhemoglobin Sodium 148 H Potassium Chloride 109.3 H Carbon Dioxide 19 L BUN 57 H Creatinine 1.5 H Glucose 151 H POC Glucose Lactic Acid 9.60 H* Calcium Phosphorus Magnesium Total Creatine Kinase Troponin T 0.062 H Total Protein Albumin 1.7 L Triglycerides 190 H LDL Cholesterol Direct 33 L HDL Cholesterol 18 L Arterial Blood Glucose Arterial Blood Ionized Calcium Urine pH Urine WBC (Auto) Vancomycin Trough Salicylates Acetaminophen Crossmatch 10/26/20 10/26/20 10/26/20 17:28 17:28 17:28 WBC RBC Hgb Hct MCV MCH MCHC RDW Plt Count Lymph % (Auto) [place] % (Auto) [place] # (Auto) Seg Neutrophils % Seg Neuts % (Manual) Lymphocytes % (Manual) Nucleated RBC % Seg Neutrophils # Seg Neutrophils # Man Lymphocytes # (Manual) Monocytes # (Manual) PT INR ABG pH POC ABG pCO2 POC ABG pO2 ABG pO2 ABG HCO3 ABG O2 Saturation ABG Base Excess ABG Hemoglobin ABG Oxyhemoglobin ABG Sodium ABG Potassium ABG Chloride ABG Glucose Oxyhemoglobin Carboxyhemoglobin Sodium Potassium Chloride Carbon Dioxide BUN Creatinine Glucose POC Glucose Lactic Acid Calcium Phosphorus Magnesium Total Creatine Kinase 31 L Troponin T Total Protein Albumin Triglycerides LDL Cholesterol Direct HDL Cholesterol Arterial Blood Glucose Arterial Blood Ionized Calcium Urine pH Urine WBC (Auto) Vancomycin Trough Salicylates < 0.3 L Acetaminophen 5.0 L Crossmatch 10/26/20 10/26/20 10/26/20 17:30 20:11 22:00 WBC RBC Hgb Hct MCV MCH MCHC RDW Plt Count Lymph % (Auto) [place] % (Auto) [place] # (Auto) Seg Neutrophils % Seg Neuts % (Manual) Lymphocytes % (Manual) Nucleated RBC % Seg Neutrophils # Seg Neutrophils # Man Lymphocytes # (Manual) Monocytes # (Manual) PT INR ABG pH 7.235 L POC ABG pCO2 POC ABG pO2 ABG pO2 312.4 H ABG HCO3 16.4 L ABG O2 Saturation 99.5 H ABG Base Excess -10.4 L ABG Hemoglobin 11.0 L ABG Oxyhemoglobin ABG Sodium ABG Potassium ABG Chloride ABG Glucose Oxyhemoglobin Carboxyhemoglobin Sodium Potassium Chloride Carbon Dioxide BUN Creatinine Glucose POC Glucose Lactic Acid 7.70 H* 6.40 H* Calcium Phosphorus Magnesium Total Creatine Kinase Troponin T Total Protein Albumin Triglycerides LDL Cholesterol Direct HDL Cholesterol Arterial Blood Glucose Arterial Blood Ionized Calcium Urine pH Urine WBC (Auto) Vancomycin Trough Salicylates Acetaminophen Crossmatch 10/27/20 10/27/20 10/27/20 03:25 03:30 04:00 WBC 20.3 H RBC 3.10 L Hgb 9.6 L Hct 30.6 L MCV 99 H MCH MCHC 31 L RDW 16.9 H Plt Count Lymph % (Auto) [place] % (Auto) [place] # (Auto) Seg Neutrophils % Seg Neuts % (Manual) Lymphocytes % (Manual) Nucleated RBC % Seg Neutrophils # Seg Neutrophils # Man 11.6 H Lymphocytes # (Manual) Monocytes # (Manual) PT INR ABG pH 7.218 L POC ABG pCO2 POC ABG pO2 62.9 L ABG pO2 ABG HCO3 ABG O2 Saturation ABG Base Excess ABG Hemoglobin 10.6 L ABG Oxyhemoglobin 86.6 L ABG Sodium ABG Potassium 4.8 H ABG Chloride 114.0 H ABG Glucose 116 H Oxyhemoglobin Carboxyhemoglobin 0.4 L Sodium Potassium Chloride 110.2 H Carbon Dioxide 17 L BUN 55 H Creatinine 1.5 H Glucose 109 H POC Glucose Lactic Acid Calcium 7.9 L Phosphorus Magnesium Total Creatine Kinase Troponin T Total Protein Albumin 1.3 L Triglycerides LDL Cholesterol Direct HDL Cholesterol Arterial Blood Glucose 116 H Arterial Blood Ionized Calcium Urine pH Urine WBC (Auto) Vancomycin Trough Salicylates Acetaminophen Crossmatch 10/27/20 10/28/20 10/28/20 Unknown 00:40 00:40 WBC 23.1 H RBC 2.42 L Hgb 7.5 L Hct 23.7 L D MCV 98 H MCH MCHC RDW 16.8 H Plt Count Lymph % (Auto) [place] % (Auto) [place] # (Auto) Seg Neutrophils % Seg Neuts % (Manual) Lymphocytes % (Manual) Nucleated RBC % Seg Neutrophils # Seg Neutrophils # Man Lymphocytes # (Manual) Monocytes # (Manual) PT INR ABG pH POC ABG pCO2 POC ABG pO2 ABG pO2 ABG HCO3 ABG O2 Saturation ABG Base Excess ABG Hemoglobin ABG Oxyhemoglobin ABG Sodium ABG Potassium ABG Chloride ABG Glucose Oxyhemoglobin Carboxyhemoglobin Sodium Potassium Chloride 111.4 H Carbon Dioxide 19 L BUN 49 H Creatinine Glucose POC Glucose Lactic Acid Calcium 7.3 L Phosphorus Magnesium 1.40 L Total Creatine Kinase Troponin T Total Protein 5.8 L Albumin 1.2 L Triglycerides LDL Cholesterol Direct HDL Cholesterol Arterial Blood Glucose Arterial Blood Ionized Calcium Urine pH 8.0 H Urine WBC (Auto) > 182.0 H Vancomycin Trough Salicylates Acetaminophen Crossmatch 10/28/20 10/28/20 10/28/20 03:30 05:36 05:36 WBC RBC Hgb Hct MCV MCH MCHC RDW Plt Count Lymph % (Auto) [place] % (Auto) [place] # (Auto) Seg Neutrophils % Seg Neuts % (Manual) Lymphocytes % (Manual) Nucleated RBC % Seg Neutrophils # Seg Neutrophils # Man Lymphocytes # (Manual) Monocytes # (Manual) PT INR ABG pH 7.175 L POC ABG pCO2 POC ABG pO2 71.5 L ABG pO2 ABG HCO3 ABG O2 Saturation ABG Base Excess ABG Hemoglobin 8.8 L ABG Oxyhemoglobin ABG Sodium ABG Potassium 4.7 H ABG Chloride 114.0 H ABG Glucose 100 H Oxyhemoglobin Carboxyhemoglobin Sodium Potassium Chloride 114.6 H Carbon Dioxide 15 L BUN 48 H Creatinine 1.4 H Glucose POC Glucose Lactic Acid 7.60 H* Calcium 7.7 L Phosphorus Magnesium Total Creatine Kinase Troponin T Total Protein Albumin Triglycerides LDL Cholesterol Direct HDL Cholesterol Arterial Blood Glucose 100 H Arterial Blood Ionized Calcium 4.4 L Urine pH Urine WBC (Auto) Vancomycin Trough Salicylates Acetaminophen Crossmatch 10/28/20 10/28/20 10/29/20 17:18 23:18 03:50 WBC RBC Hgb Hct MCV MCH MCHC RDW Plt Count Lymph % (Auto) [place] % (Auto) [place] # (Auto) Seg Neutrophils % Seg Neuts % (Manual) Lymphocytes % (Manual) Nucleated RBC % Seg Neutrophils # Seg Neutrophils # Man Lymphocytes # (Manual) Monocytes # (Manual) PT INR ABG pH POC ABG pCO2 30.0 L POC ABG pO2 ABG pO2 ABG HCO3 ABG O2 Saturation ABG Base Excess ABG Hemoglobin 8.1 L ABG Oxyhemoglobin ABG Sodium ABG Potassium ABG Chloride 113.0 H ABG Glucose 153 H Oxyhemoglobin Carboxyhemoglobin 0.4 L Sodium Potassium Chloride Carbon Dioxide BUN Creatinine Glucose POC Glucose 134 H 149 H Lactic Acid Calcium Phosphorus Magnesium Total Creatine Kinase Troponin T Total Protein Albumin Triglycerides LDL Cholesterol Direct HDL Cholesterol Arterial Blood Glucose 153 H Arterial Blood Ionized Calcium 4.1 L Urine pH Urine WBC (Auto) Vancomycin Trough Salicylates Acetaminophen Crossmatch 10/29/20 10/29/20 10/29/20 05:09 05:15 05:15 WBC 23.9 H RBC 2.66 L Hgb 8.3 L Hct 26.3 L MCV 99 H MCH MCHC RDW 17.5 H Plt Count Lymph % (Auto) [place] % (Auto) [place] # (Auto) Seg Neutrophils % Seg Neuts % (Manual) Lymphocytes % (Manual) Nucleated RBC % Seg Neutrophils # Seg Neutrophils # Man Lymphocytes # (Manual) Monocytes # (Manual) PT INR ABG pH POC ABG pCO2 POC ABG pO2 ABG pO2 ABG HCO3 ABG O2 Saturation ABG Base Excess ABG Hemoglobin ABG Oxyhemoglobin ABG Sodium ABG Potassium ABG Chloride ABG Glucose Oxyhemoglobin Carboxyhemoglobin Sodium Potassium Chloride 110.4 H Carbon Dioxide 15 L BUN 40 H Creatinine Glucose 140 H POC Glucose 123 H Lactic Acid Calcium 7.0 L Phosphorus Magnesium Total Creatine Kinase Troponin T Total Protein 6.0 L Albumin 1.0 L Triglycerides LDL Cholesterol Direct HDL Cholesterol Arterial Blood Glucose Arterial Blood Ionized Calcium Urine pH Urine WBC (Auto) Vancomycin Trough Salicylates Acetaminophen Crossmatch 10/29/20 10/29/20 10/29/20 05:15 10:37 11:41 WBC RBC Hgb Hct MCV MCH MCHC RDW Plt Count Lymph % (Auto) [place] % (Auto) [place] # (Auto) Seg Neutrophils % Seg Neuts % (Manual) Lymphocytes % (Manual) Nucleated RBC % Seg Neutrophils # Seg Neutrophils # Man Lymphocytes # (Manual) Monocytes # (Manual) PT INR ABG pH POC ABG pCO2 POC ABG pO2 ABG pO2 ABG HCO3 ABG O2 Saturation ABG Base Excess ABG Hemoglobin ABG Oxyhemoglobin ABG Sodium ABG Potassium ABG Chloride ABG Glucose Oxyhemoglobin Carboxyhemoglobin Sodium Potassium Chloride Carbon Dioxide BUN Creatinine Glucose POC Glucose 121 H Lactic Acid 9.90 H* 10.90 H* Calcium Phosphorus Magnesium Total Creatine Kinase Troponin T Total Protein Albumin Triglycerides LDL Cholesterol Direct HDL Cholesterol Arterial Blood Glucose Arterial Blood Ionized Calcium Urine pH Urine WBC (Auto) Vancomycin Trough Salicylates Acetaminophen Crossmatch 10/29/20 10/29/20 10/30/20 15:56 23:24 02:26 WBC RBC Hgb Hct MCV MCH MCHC RDW Plt Count Lymph % (Auto) [place] % (Auto) [place] # (Auto) Seg Neutrophils % Seg Neuts % (Manual) Lymphocytes % (Manual) Nucleated RBC % Seg Neutrophils # Seg Neutrophils # Man Lymphocytes # (Manual) Monocytes # (Manual) PT INR ABG pH POC ABG pCO2 POC ABG pO2 76.6 L ABG pO2 ABG HCO3 ABG O2 Saturation ABG Base Excess ABG Hemoglobin 6.4 L ABG Oxyhemoglobin 93.8 L ABG Sodium ABG Potassium 2.9 L ABG Chloride 110.0 H ABG Glucose 212 H Oxyhemoglobin Carboxyhemoglobin Sodium Potassium Chloride Carbon Dioxide BUN Creatinine Glucose POC Glucose 132 H 175 H Lactic Acid Calcium Phosphorus Magnesium Total Creatine Kinase Troponin T Total Protein Albumin Triglycerides LDL Cholesterol Direct HDL Cholesterol Arterial Blood Glucose 212 H Arterial Blood Ionized Calcium 3.9 L Urine pH Urine WBC (Auto) Vancomycin Trough Salicylates Acetaminophen Crossmatch 10/30/20 10/30/20 10/30/20 04:54 04:54 05:14 WBC 20.7 H RBC 2.28 L Hgb 7.0 L Hct 21.9 L MCV 96 H MCH MCHC RDW 17.0 H Plt Count 90 L Lymph % (Auto) [place] % (Auto) [place] # (Auto) Seg Neutrophils % Seg Neuts % (Manual) Lymphocytes % (Manual) Nucleated RBC % Seg Neutrophils # Seg Neutrophils # Man Lymphocytes # (Manual) Monocytes # (Manual) PT INR ABG pH POC ABG pCO2 POC ABG pO2 ABG pO2 ABG HCO3 ABG O2 Saturation ABG Base Excess ABG Hemoglobin ABG Oxyhemoglobin ABG Sodium ABG Potassium ABG Chloride ABG Glucose Oxyhemoglobin Carboxyhemoglobin Sodium Potassium 3.0 L D Chloride Carbon Dioxide BUN 28 H Creatinine 0.6 L Glucose 214 H POC Glucose 187 H Lactic Acid Calcium 6.2 L Phosphorus Magnesium Total Creatine Kinase Troponin T Total Protein Albumin Triglycerides LDL Cholesterol Direct HDL Cholesterol Arterial Blood Glucose Arterial Blood Ionized Calcium Urine pH Urine WBC (Auto) Vancomycin Trough Salicylates Acetaminophen Crossmatch 10/30/20 10/30/20 10/30/20 09:30 11:40 17:51 WBC RBC Hgb Hct MCV MCH MCHC RDW Plt Count Lymph % (Auto) [place] % (Auto) [place] # (Auto) Seg Neutrophils % Seg Neuts % (Manual) Lymphocytes % (Manual) Nucleated RBC % Seg Neutrophils # Seg Neutrophils # Man Lymphocytes # (Manual) Monocytes # (Manual) PT INR ABG pH POC ABG pCO2 POC ABG pO2 ABG pO2 ABG HCO3 ABG O2 Saturation ABG Base Excess ABG Hemoglobin ABG Oxyhemoglobin ABG Sodium ABG Potassium ABG Chloride ABG Glucose Oxyhemoglobin Carboxyhemoglobin Sodium Potassium Chloride Carbon Dioxide BUN Creatinine Glucose POC Glucose 183 H 136 H Lactic Acid Calcium Phosphorus Magnesium Total Creatine Kinase Troponin T Total Protein Albumin Triglycerides LDL Cholesterol Direct HDL Cholesterol Arterial Blood Glucose Arterial Blood Ionized Calcium Urine pH Urine WBC (Auto) Vancomycin Trough Salicylates Acetaminophen Crossmatch See Detail 10/30/20 10/30/20 10/30/20 18:53 23:25 Unknown WBC RBC Hgb Hct MCV MCH MCHC RDW Plt Count Lymph % (Auto) [place] % (Auto) [place] # (Auto) Seg Neutrophils % Seg Neuts % (Manual) Lymphocytes % (Manual) Nucleated RBC % Seg Neutrophils # Seg Neutrophils # Man Lymphocytes # (Manual) Monocytes # (Manual) PT INR ABG pH POC ABG pCO2 POC ABG pO2 ABG pO2 ABG HCO3 ABG O2 Saturation ABG Base Excess ABG Hemoglobin ABG Oxyhemoglobin ABG Sodium ABG Potassium ABG Chloride ABG Glucose Oxyhemoglobin Carboxyhemoglobin Sodium Potassium Chloride Carbon Dioxide BUN Creatinine Glucose POC Glucose 130 H Lactic Acid Calcium Phosphorus Magnesium Total Creatine Kinase Troponin T Total Protein Albumin Triglycerides LDL Cholesterol Direct HDL Cholesterol Arterial Blood Glucose Arterial Blood Ionized Calcium Urine pH Urine WBC (Auto) Vancomycin Trough 21.4 H 22.0 H Salicylates Acetaminophen Crossmatch 10/30/20 10/31/20 10/31/20 Unknown 02:54 03:42 WBC 21.1 H 23.0 H RBC 2.36 L Hgb 7.3 L 11.4 L D Hct 22.7 L 34.1 L D MCV 96 H MCH MCHC RDW 17.1 H 16.2 H Plt Count 73 L 33 L Lymph % (Auto) [place] % (Auto) [place] # (Auto) Seg Neutrophils % Seg Neuts % (Manual) Lymphocytes % (Manual) Nucleated RBC % Seg Neutrophils # Seg Neutrophils # Man Lymphocytes # (Manual) Monocytes # (Manual) PT INR ABG pH 7.517 H POC ABG pCO2 25.7 L POC ABG pO2 52.3 L ABG pO2 ABG HCO3 ABG O2 Saturation ABG Base Excess ABG Hemoglobin ABG Oxyhemoglobin 90.8 L ABG Sodium ABG Potassium ABG Chloride 109.0 H ABG Glucose 147 H Oxyhemoglobin Carboxyhemoglobin Sodium Potassium Chloride Carbon Dioxide BUN Creatinine Glucose POC Glucose Lactic Acid Calcium Phosphorus Magnesium Total Creatine Kinase Troponin T Total Protein Albumin Triglycerides LDL Cholesterol Direct HDL Cholesterol Arterial Blood Glucose 147 H Arterial Blood Ionized Calcium 4.0 L Urine pH Urine WBC (Auto) Vancomycin Trough Salicylates Acetaminophen Crossmatch 10/31/20 10/31/20 10/31/20 04:37 04:37 05:08 WBC 21.7 H RBC Hgb Hct MCV MCH MCHC RDW 16.1 H Plt Count 39 L Lymph % (Auto) [place] % (Auto) [place] # (Auto) Seg Neutrophils % Seg Neuts % (Manual) Lymphocytes % (Manual) Nucleated RBC % Seg Neutrophils # Seg Neutrophils # Man Lymphocytes # (Manual) Monocytes # (Manual) PT INR ABG pH POC ABG pCO2 POC ABG pO2 ABG pO2 ABG HCO3 ABG O2 Saturation ABG Base Excess ABG Hemoglobin ABG Oxyhemoglobin ABG Sodium ABG Potassium ABG Chloride ABG Glucose Oxyhemoglobin Carboxyhemoglobin Sodium Potassium Chloride 108.4 H Carbon Dioxide BUN 25 H Creatinine 0.5 L Glucose 140 H POC Glucose 140 H Lactic Acid Calcium 6.1 L Phosphorus Magnesium 1.50 L Total Creatine Kinase Troponin T Total Protein Albumin Triglycerides LDL Cholesterol Direct HDL Cholesterol Arterial Blood Glucose Arterial Blood Ionized Calcium Urine pH Urine WBC (Auto) Vancomycin Trough Salicylates Acetaminophen Crossmatch 10/31/20 10/31/20 10/31/20 11:12 18:50 23:21 WBC RBC Hgb Hct MCV MCH MCHC RDW Plt Count Lymph % (Auto) [place] % (Auto) [place] # (Auto) Seg Neutrophils % Seg Neuts % (Manual) Lymphocytes % (Manual) Nucleated RBC % Seg Neutrophils # Seg Neutrophils # Man Lymphocytes # (Manual) Monocytes # (Manual) PT INR ABG pH POC ABG pCO2 POC ABG pO2 ABG pO2 ABG HCO3 ABG O2 Saturation ABG Base Excess ABG Hemoglobin ABG Oxyhemoglobin ABG Sodium ABG Potassium ABG Chloride ABG Glucose Oxyhemoglobin Carboxyhemoglobin Sodium Potassium Chloride Carbon Dioxide BUN Creatinine Glucose POC Glucose 125 H 142 H 127 H Lactic Acid Calcium Phosphorus Magnesium Total Creatine Kinase Troponin T Total Protein Albumin Triglycerides LDL Cholesterol Direct HDL Cholesterol Arterial Blood Glucose Arterial Blood Ionized Calcium Urine pH Urine WBC (Auto) Vancomycin Trough Salicylates Acetaminophen Crossmatch 10/31/20 11/01/20 11/01/20 Unknown 03:40 04:21 WBC RBC Hgb Hct MCV MCH MCHC RDW Plt Count Lymph % (Auto) [place] % (Auto) [place] # (Auto) Seg Neutrophils % Seg Neuts % (Manual) Lymphocytes % (Manual) Nucleated RBC % Seg Neutrophils # Seg Neutrophils # Man Lymphocytes # (Manual) Monocytes # (Manual) PT INR ABG pH 7.489 H POC ABG pCO2 POC ABG pO2 ABG pO2 77.2 L ABG HCO3 ABG O2 Saturation ABG Base Excess ABG Hemoglobin 7.1 L ABG Oxyhemoglobin ABG Sodium ABG Potassium ABG Chloride ABG Glucose Oxyhemoglobin Carboxyhemoglobin Sodium Potassium 3.1 L Chloride 107.1 H Carbon Dioxide BUN 25 H Creatinine 0.5 L Glucose 148 H POC Glucose Lactic Acid 4.30 H* Calcium 6.0 L Phosphorus Magnesium Total Creatine Kinase Troponin T Total Protein Albumin Triglycerides LDL Cholesterol Direct HDL Cholesterol Arterial Blood Glucose Arterial Blood Ionized Calcium Urine pH Urine WBC (Auto) Vancomycin Trough Salicylates Acetaminophen Crossmatch 11/01/20 11/01/20 11/01/20 05:13 11:42 17:38 WBC RBC Hgb Hct MCV MCH MCHC RDW Plt Count Lymph % (Auto) [place] % (Auto) [place] # (Auto) Seg Neutrophils % Seg Neuts % (Manual) Lymphocytes % (Manual) Nucleated RBC % Seg Neutrophils # Seg Neutrophils # Man Lymphocytes # (Manual) Monocytes # (Manual) PT INR ABG pH POC ABG pCO2 POC ABG pO2 ABG pO2 ABG HCO3 ABG O2 Saturation ABG Base Excess ABG Hemoglobin ABG Oxyhemoglobin ABG Sodium ABG Potassium ABG Chloride ABG Glucose Oxyhemoglobin Carboxyhemoglobin Sodium Potassium Chloride Carbon Dioxide BUN Creatinine Glucose POC Glucose 139 H 139 H 161 H Lactic Acid Calcium Phosphorus Magnesium Total Creatine Kinase Troponin T Total Protein Albumin Triglycerides LDL Cholesterol Direct HDL Cholesterol Arterial Blood Glucose Arterial Blood Ionized Calcium Urine pH Urine WBC (Auto) Vancomycin Trough Salicylates Acetaminophen Crossmatch 11/01/20 11/01/20 11/02/20 23:20 Unknown 04:30 WBC 18.2 H RBC 3.27 L Hgb 9.9 L Hct 30.1 L D MCV MCH MCHC RDW 15.7 H Plt Count 34 L Lymph % (Auto) [place] % (Auto) [place] # (Auto) Seg Neutrophils % Seg Neuts % (Manual) Lymphocytes % (Manual) Nucleated RBC % Seg Neutrophils # Seg Neutrophils # Man Lymphocytes # (Manual) Monocytes # (Manual) PT INR ABG pH 7.456 H POC ABG pCO2 POC ABG pO2 ABG pO2 ABG HCO3 ABG O2 Saturation ABG Base Excess ABG Hemoglobin 9.2 L ABG Oxyhemoglobin ABG Sodium ABG Potassium ABG Chloride ABG Glucose Oxyhemoglobin Carboxyhemoglobin Sodium Potassium Chloride Carbon Dioxide BUN Creatinine Glucose POC Glucose 168 H Lactic Acid Calcium Phosphorus Magnesium Total Creatine Kinase Troponin T Total Protein Albumin Triglycerides LDL Cholesterol Direct HDL Cholesterol Arterial Blood Glucose Arterial Blood Ionized Calcium Urine pH Urine WBC (Auto) Vancomycin Trough Salicylates Acetaminophen Crossmatch 11/02/20 11/02/20 11/02/20 06:29 08:40 08:40 WBC 16.6 H RBC 2.87 L Hgb 8.8 L Hct 26.6 L MCV MCH MCHC RDW 15.8 H Plt Count 30 L Lymph % (Auto) [place] % (Auto) [place] # (Auto) Seg Neutrophils % Seg Neuts % (Manual) 97.0 H Lymphocytes % (Manual) 2.0 L Nucleated RBC % 1.0 H Seg Neutrophils # Seg Neutrophils # Man 16.1 H Lymphocytes # (Manual) 0.3 L Monocytes # (Manual) PT INR ABG pH POC ABG pCO2 POC ABG pO2 ABG pO2 ABG HCO3 ABG O2 Saturation ABG Base Excess ABG Hemoglobin ABG Oxyhemoglobin ABG Sodium ABG Potassium ABG Chloride ABG Glucose Oxyhemoglobin Carboxyhemoglobin Sodium Potassium 2.4 L* D Chloride 110.2 H Carbon Dioxide BUN 23 H Creatinine 0.4 L Glucose 154 H POC Glucose 131 H Lactic Acid Calcium 6.1 L Phosphorus Magnesium 1.50 L Total Creatine Kinase Troponin T Total Protein Albumin Triglycerides LDL Cholesterol Direct HDL Cholesterol Arterial Blood Glucose Arterial Blood Ionized Calcium Urine pH Urine WBC (Auto) Vancomycin Trough Salicylates Acetaminophen Crossmatch 11/02/20 11/02/20 11/02/20 13:17 17:25 18:05 WBC RBC Hgb Hct MCV MCH MCHC RDW Plt Count Lymph % (Auto) [place] % (Auto) [place] # (Auto) Seg Neutrophils % Seg Neuts % (Manual) Lymphocytes % (Manual) Nucleated RBC % Seg Neutrophils # Seg Neutrophils # Man Lymphocytes # (Manual) Monocytes # (Manual) PT INR ABG pH POC ABG pCO2 POC ABG pO2 ABG pO2 ABG HCO3 ABG O2 Saturation ABG Base Excess ABG Hemoglobin ABG Oxyhemoglobin ABG Sodium ABG Potassium ABG Chloride ABG Glucose Oxyhemoglobin Carboxyhemoglobin Sodium Potassium 3.1 L D Chloride Carbon Dioxide BUN Creatinine Glucose POC Glucose 134 H 140 H Lactic Acid Calcium Phosphorus Magnesium Total Creatine Kinase Troponin T Total Protein Albumin Triglycerides LDL Cholesterol Direct HDL Cholesterol Arterial Blood Glucose Arterial Blood Ionized Calcium Urine pH Urine WBC (Auto) Vancomycin Trough Salicylates Acetaminophen Crossmatch 11/02/20 11/03/20 11/03/20 23:36 04:15 05:07 WBC RBC Hgb Hct MCV MCH MCHC RDW Plt Count Lymph % (Auto) [place] % (Auto) [place] # (Auto) Seg Neutrophils % Seg Neuts % (Manual) Lymphocytes % (Manual) Nucleated RBC % Seg Neutrophils # Seg Neutrophils # Man Lymphocytes # (Manual) Monocytes # (Manual) PT INR ABG pH POC ABG pCO2 POC ABG pO2 ABG pO2 ABG HCO3 ABG O2 Saturation ABG Base Excess ABG Hemoglobin ABG Oxyhemoglobin ABG Sodium ABG Potassium ABG Chloride ABG Glucose Oxyhemoglobin Carboxyhemoglobin Sodium Potassium 3.0 L Chloride 111.8 H Carbon Dioxide BUN 24 H Creatinine 0.3 L Glucose 141 H POC Glucose 127 H 156 H Lactic Acid Calcium 5.8 L* Phosphorus Magnesium 1.60 L Total Creatine Kinase Troponin T Total Protein Albumin Triglycerides LDL Cholesterol Direct HDL Cholesterol Arterial Blood Glucose Arterial Blood Ionized Calcium Urine pH Urine WBC (Auto) Vancomycin Trough Salicylates Acetaminophen Crossmatch 11/03/20 11/03/20 11/04/20 11:14 17:31 00:17 WBC RBC Hgb Hct MCV MCH MCHC RDW Plt Count Lymph % (Auto) [place] % (Auto) [place] # (Auto) Seg Neutrophils % Seg Neuts % (Manual) Lymphocytes % (Manual) Nucleated RBC % Seg Neutrophils # Seg Neutrophils # Man Lymphocytes # (Manual) Monocytes # (Manual) PT INR ABG pH POC ABG pCO2 POC ABG pO2 ABG pO2 ABG HCO3 ABG O2 Saturation ABG Base Excess ABG Hemoglobin ABG Oxyhemoglobin ABG Sodium ABG Potassium ABG Chloride ABG Glucose Oxyhemoglobin Carboxyhemoglobin Sodium Potassium Chloride Carbon Dioxide BUN Creatinine Glucose POC Glucose 137 H 151 H 156 H Lactic Acid Calcium Phosphorus Magnesium Total Creatine Kinase Troponin T Total Protein Albumin Triglycerides LDL Cholesterol Direct HDL Cholesterol Arterial Blood Glucose Arterial Blood Ionized Calcium Urine pH Urine WBC (Auto) Vancomycin Trough Salicylates Acetaminophen Crossmatch 11/04/20 11/04/20 11/04/20 05:34 05:34 11:16 WBC 21.9 H RBC 2.67 L Hgb 8.2 L Hct 24.8 L MCV MCH MCHC RDW 15.6 H Plt Count 48 L Lymph % (Auto) [place] % (Auto) [place] # (Auto) Seg Neutrophils % Seg Neuts % (Manual) Lymphocytes % (Manual) Nucleated RBC % Seg Neutrophils # Seg Neutrophils # Man Lymphocytes # (Manual) Monocytes # (Manual) PT INR ABG pH POC ABG pCO2 POC ABG pO2 ABG pO2 ABG HCO3 ABG O2 Saturation ABG Base Excess ABG Hemoglobin ABG Oxyhemoglobin ABG Sodium ABG Potassium ABG Chloride ABG Glucose Oxyhemoglobin Carboxyhemoglobin Sodium 146 H Potassium Chloride 114.6 H Carbon Dioxide BUN 29 H Creatinine 0.3 L Glucose 173 H POC Glucose 156 H Lactic Acid Calcium 5.7 L* Phosphorus Magnesium Total Creatine Kinase Troponin T Total Protein Albumin Triglycerides LDL Cholesterol Direct HDL Cholesterol Arterial Blood Glucose Arterial Blood Ionized Calcium Urine pH Urine WBC (Auto) Vancomycin Trough Salicylates Acetaminophen Crossmatch 11/04/20 11/04/20 11/04/20 11:42 17:18 23:12 WBC RBC Hgb Hct MCV MCH MCHC RDW Plt Count Lymph % (Auto) [place] % (Auto) [place] # (Auto) Seg Neutrophils % Seg Neuts % (Manual) Lymphocytes % (Manual) Nucleated RBC % Seg Neutrophils # Seg Neutrophils # Man Lymphocytes # (Manual) Monocytes # (Manual) PT INR ABG pH 7.525 H POC ABG pCO2 28.9 L POC ABG pO2 64.3 L ABG pO2 ABG HCO3 ABG O2 Saturation ABG Base Excess ABG Hemoglobin 8.2 L ABG Oxyhemoglobin ABG Sodium ABG Potassium 3.3 L ABG Chloride 115.0 H ABG Glucose 165 H Oxyhemoglobin Carboxyhemoglobin Sodium Potassium Chloride Carbon Dioxide BUN Creatinine Glucose POC Glucose 144 H 155 H Lactic Acid Calcium Phosphorus Magnesium Total Creatine Kinase Troponin T Total Protein Albumin Triglycerides LDL Cholesterol Direct HDL Cholesterol Arterial Blood Glucose 165 H Arterial Blood Ionized Calcium 4.0 L Urine pH Urine WBC (Auto) Vancomycin Trough Salicylates Acetaminophen Crossmatch 11/05/20 11/05/20 11/05/20 04:48 04:48 05:57 WBC 17.4 H RBC 2.49 L Hgb 7.8 L Hct 23.5 L MCV MCH MCHC RDW 16.0 H Plt Count 69 L Lymph % (Auto) [place] % (Auto) [place] # (Auto) Seg Neutrophils % Seg Neuts % (Manual) Lymphocytes % (Manual) Nucleated RBC % Seg Neutrophils # Seg Neutrophils # Man Lymphocytes # (Manual) Monocytes # (Manual) PT INR ABG pH POC ABG pCO2 POC ABG pO2 ABG pO2 ABG HCO3 ABG O2 Saturation ABG Base Excess ABG Hemoglobin ABG Oxyhemoglobin ABG Sodium ABG Potassium ABG Chloride ABG Glucose Oxyhemoglobin Carboxyhemoglobin Sodium 147 H Potassium 3.5 L Chloride 115.4 H Carbon Dioxide BUN 34 H Creatinine 0.3 L Glucose 154 H POC Glucose 146 H Lactic Acid Calcium 6.1 L Phosphorus 2.00 L Magnesium Total Creatine Kinase Troponin T Total Protein Albumin Triglycerides LDL Cholesterol Direct HDL Cholesterol Arterial Blood Glucose Arterial Blood Ionized Calcium Urine pH Urine WBC (Auto) Vancomycin Trough Salicylates Acetaminophen Crossmatch 11/05/20 11/05/20 11/05/20 11:33 17:52 23:37 WBC RBC Hgb Hct MCV MCH MCHC RDW Plt Count Lymph % (Auto) [place] % (Auto) [place] # (Auto) Seg Neutrophils % Seg Neuts % (Manual) Lymphocytes % (Manual) Nucleated RBC % Seg Neutrophils # Seg Neutrophils # Man Lymphocytes # (Manual) Monocytes # (Manual) PT INR ABG pH POC ABG pCO2 POC ABG pO2 ABG pO2 ABG HCO3 ABG O2 Saturation ABG Base Excess ABG Hemoglobin ABG Oxyhemoglobin ABG Sodium ABG Potassium ABG Chloride ABG Glucose Oxyhemoglobin Carboxyhemoglobin Sodium Potassium Chloride Carbon Dioxide BUN Creatinine Glucose POC Glucose 144 H 136 H 151 H Lactic Acid Calcium Phosphorus Magnesium Total Creatine Kinase Troponin T Total Protein Albumin Triglycerides LDL Cholesterol Direct HDL Cholesterol Arterial Blood Glucose Arterial Blood Ionized Calcium Urine pH Urine WBC (Auto) Vancomycin Trough Salicylates Acetaminophen Crossmatch 11/06/20 11/06/20 11/06/20 05:36 06:45 06:45 WBC 15.0 H RBC 2.33 L Hgb 7.2 L Hct 22.1 L MCV 95 H MCH MCHC RDW 16.2 H Plt Count 103 L Lymph % (Auto) [place] % (Auto) [place] # (Auto) Seg Neutrophils % Seg Neuts % (Manual) Lymphocytes % (Manual) Nucleated RBC % Seg Neutrophils # Seg Neutrophils # Man Lymphocytes # (Manual) Monocytes # (Manual) PT INR ABG pH POC ABG pCO2 POC ABG pO2 ABG pO2 ABG HCO3 ABG O2 Saturation ABG Base Excess ABG Hemoglobin ABG Oxyhemoglobin ABG Sodium ABG Potassium ABG Chloride ABG Glucose Oxyhemoglobin Carboxyhemoglobin Sodium 148 H Potassium Chloride 118.2 H Carbon Dioxide BUN 32 H Creatinine 0.4 L Glucose 153 H POC Glucose 140 H Lactic Acid Calcium 6.4 L Phosphorus 0.90 L* D Magnesium Total Creatine Kinase Troponin T Total Protein 5.0 L Albumin 1.4 L Triglycerides LDL Cholesterol Direct HDL Cholesterol Arterial Blood Glucose Arterial Blood Ionized Calcium Urine pH Urine WBC (Auto) Vancomycin Trough Salicylates Acetaminophen Crossmatch 11/06/20 11/06/20 11/06/20 11:32 17:37 23:19 WBC RBC Hgb Hct MCV MCH MCHC RDW Plt Count Lymph % (Auto) [place] % (Auto) [place] # (Auto) Seg Neutrophils % Seg Neuts % (Manual) Lymphocytes % (Manual) Nucleated RBC % Seg Neutrophils # Seg Neutrophils # Man Lymphocytes # (Manual) Monocytes # (Manual) PT INR ABG pH POC ABG pCO2 POC ABG pO2 ABG pO2 ABG HCO3 ABG O2 Saturation ABG Base Excess ABG Hemoglobin ABG Oxyhemoglobin ABG Sodium ABG Potassium ABG Chloride ABG Glucose Oxyhemoglobin Carboxyhemoglobin Sodium Potassium Chloride Carbon Dioxide BUN Creatinine Glucose POC Glucose 132 H 133 H 145 H Lactic Acid Calcium Phosphorus Magnesium Total Creatine Kinase Troponin T Total Protein Albumin Triglycerides LDL Cholesterol Direct HDL Cholesterol Arterial Blood Glucose Arterial Blood Ionized Calcium Urine pH Urine WBC (Auto) Vancomycin Trough Salicylates Acetaminophen Crossmatch 11/07/20 11/07/20 11/07/20 12:55 16:45 16:45 WBC 12.0 H RBC 3.63 L Hgb 11.4 L D Hct MCV 104 H MCH MCHC 30 L RDW 18.0 H Plt Count 133 L Lymph % (Auto) [place] % (Auto) [place] # (Auto) Seg Neutrophils % Seg Neuts % (Manual) Lymphocytes % (Manual) Nucleated RBC % Seg Neutrophils # Seg Neutrophils # Man Lymphocytes # (Manual) Monocytes # (Manual) PT INR ABG pH POC ABG pCO2 POC ABG pO2 ABG pO2 ABG HCO3 ABG O2 Saturation ABG Base Excess ABG Hemoglobin 7.7 L ABG Oxyhemoglobin ABG Sodium ABG Potassium ABG Chloride ABG Glucose Oxyhemoglobin 94.9 L Carboxyhemoglobin Sodium 149 H Potassium Chloride 119.8 H Carbon Dioxide BUN 31 H Creatinine 0.4 L Glucose 130 H POC Glucose Lactic Acid Calcium 6.5 L Phosphorus Magnesium Total Creatine Kinase Troponin T Total Protein Albumin Triglycerides LDL Cholesterol Direct HDL Cholesterol Arterial Blood Glucose Arterial Blood Ionized Calcium Urine pH Urine WBC (Auto) Vancomycin Trough Salicylates Acetaminophen Crossmatch 11/07/20 11/08/20 11/08/20 17:23 00:12 06:11 WBC RBC Hgb Hct MCV MCH MCHC RDW Plt Count Lymph % (Auto) [place] % (Auto) [place] # (Auto) Seg Neutrophils % Seg Neuts % (Manual) Lymphocytes % (Manual) Nucleated RBC % Seg Neutrophils # Seg Neutrophils # Man Lymphocytes # (Manual) Monocytes # (Manual) PT INR ABG pH POC ABG pCO2 POC ABG pO2 ABG pO2 ABG HCO3 ABG O2 Saturation ABG Base Excess ABG Hemoglobin ABG Oxyhemoglobin ABG Sodium ABG Potassium ABG Chloride ABG Glucose Oxyhemoglobin Carboxyhemoglobin Sodium Potassium Chloride Carbon Dioxide BUN Creatinine Glucose POC Glucose 115 H 129 H 109 H Lactic Acid Calcium Phosphorus Magnesium Total Creatine Kinase Troponin T Total Protein Albumin Triglycerides LDL Cholesterol Direct HDL Cholesterol Arterial Blood Glucose Arterial Blood Ionized Calcium Urine pH Urine WBC (Auto) Vancomycin Trough Salicylates Acetaminophen Crossmatch 11/08/20 11/08/20 11/08/20 17:36 23:49 23:58 WBC RBC Hgb Hct MCV MCH MCHC RDW Plt Count Lymph % (Auto) [place] % (Auto) [place] # (Auto) Seg Neutrophils % Seg Neuts % (Manual) Lymphocytes % (Manual) Nucleated RBC % Seg Neutrophils # Seg Neutrophils # Man Lymphocytes # (Manual) Monocytes # (Manual) PT INR ABG pH POC ABG pCO2 POC ABG pO2 ABG pO2 ABG HCO3 ABG O2 Saturation ABG Base Excess ABG Hemoglobin ABG Oxyhemoglobin ABG Sodium ABG Potassium ABG Chloride ABG Glucose Oxyhemoglobin Carboxyhemoglobin Sodium Potassium Chloride Carbon Dioxide BUN Creatinine Glucose 138 H POC Glucose 38 L 36 L Lactic Acid Calcium Phosphorus Magnesium Total Creatine Kinase Troponin T Total Protein Albumin Triglycerides LDL Cholesterol Direct HDL Cholesterol Arterial Blood Glucose Arterial Blood Ionized Calcium Urine pH Urine WBC (Auto) Vancomycin Trough Salicylates Acetaminophen Crossmatch 11/09/20 11/09/20 11/09/20 05:33 06:00 06:00 WBC 13.1 H RBC 2.35 L Hgb 7.6 L D Hct 22.9 L D MCV 97 H MCH MCHC RDW 16.8 H Plt Count Lymph % (Auto) 9.1 L [place] % (Auto) [place] # (Auto) Seg Neutrophils % 84.8 H Seg Neuts % (Manual) Lymphocytes % (Manual) Nucleated RBC % Seg Neutrophils # 11.1 H Seg Neutrophils # Man Lymphocytes # (Manual) Monocytes # (Manual) PT INR ABG pH POC ABG pCO2 POC ABG pO2 ABG pO2 ABG HCO3 ABG O2 Saturation ABG Base Excess ABG Hemoglobin ABG Oxyhemoglobin ABG Sodium ABG Potassium ABG Chloride ABG Glucose Oxyhemoglobin Carboxyhemoglobin Sodium 150 H Potassium 3.4 L D Chloride 119.2 H Carbon Dioxide BUN 30 H Creatinine 0.4 L Glucose 137 H POC Glucose 58 L Lactic Acid Calcium 7.2 L Phosphorus Magnesium Total Creatine Kinase Troponin T Total Protein Albumin Triglycerides LDL Cholesterol Direct HDL Cholesterol Arterial Blood Glucose Arterial Blood Ionized Calcium Urine pH Urine WBC (Auto) Vancomycin Trough Salicylates Acetaminophen Crossmatch 11/09/20 11/09/20 11/10/20 06:08 22:16 13:46 WBC 16.1 H RBC 2.52 L Hgb 8.1 L Hct 25.2 L MCV 100 H MCH MCHC RDW 18.2 H Plt Count Lymph % (Auto) [place] % (Auto) [place] # (Auto) Seg Neutrophils % Seg Neuts % (Manual) 90.0 H Lymphocytes % (Manual) 3.0 L Nucleated RBC % Seg Neutrophils # Seg Neutrophils # Man 14.5 H Lymphocytes # (Manual) 0.5 L Monocytes # (Manual) 1.1 H PT INR ABG pH POC ABG pCO2 POC ABG pO2 ABG pO2 ABG HCO3 ABG O2 Saturation ABG Base Excess ABG Hemoglobin ABG Oxyhemoglobin ABG Sodium ABG Potassium ABG Chloride ABG Glucose Oxyhemoglobin Carboxyhemoglobin Sodium Potassium Chloride Carbon Dioxide BUN Creatinine Glucose POC Glucose 122 H 120 H Lactic Acid Calcium Phosphorus Magnesium Total Creatine Kinase Troponin T Total Protein Albumin Triglycerides LDL Cholesterol Direct HDL Cholesterol Arterial Blood Glucose Arterial Blood Ionized Calcium Urine pH Urine WBC (Auto) Vancomycin Trough Salicylates Acetaminophen Crossmatch 11/10/20 11/10/20 11/11/20 13:46 15:59 11:43 WBC RBC Hgb Hct MCV MCH MCHC RDW Plt Count Lymph % (Auto) [place] % (Auto) [place] # (Auto) Seg Neutrophils % Seg Neuts % (Manual) Lymphocytes % (Manual) Nucleated RBC % Seg Neutrophils # Seg Neutrophils # Man Lymphocytes # (Manual) Monocytes # (Manual) PT INR ABG pH POC ABG pCO2 POC ABG pO2 ABG pO2 ABG HCO3 ABG O2 Saturation ABG Base Excess ABG Hemoglobin ABG Oxyhemoglobin ABG Sodium ABG Potassium ABG Chloride ABG Glucose Oxyhemoglobin Carboxyhemoglobin Sodium 153 H Potassium Chloride 120.6 H Carbon Dioxide BUN 27 H Creatinine 0.3 L Glucose 112 H POC Glucose 40 L 124 H Lactic Acid Calcium 6.8 L Phosphorus Magnesium Total Creatine Kinase Troponin T Total Protein Albumin Triglycerides LDL Cholesterol Direct HDL Cholesterol Arterial Blood Glucose Arterial Blood Ionized Calcium Urine pH Urine WBC (Auto) Vancomycin Trough Salicylates Acetaminophen Crossmatch 11/11/20 11/11/20 11/11/20 14:38 14:38 14:38 WBC 13.8 H RBC 2.43 L Hgb 7.6 L Hct 24.0 L MCV 99 H MCH MCHC RDW 18.0 H Plt Count Lymph % (Auto) [place] % (Auto) [place] # (Auto) Seg Neutrophils % Seg Neuts % (Manual) Lymphocytes % (Manual) Nucleated RBC % Seg Neutrophils # Seg Neutrophils # Man Lymphocytes # (Manual) Monocytes # (Manual) PT 15.0 H INR 1.18 H ABG pH POC ABG pCO2 POC ABG pO2 ABG pO2 ABG HCO3 ABG O2 Saturation ABG Base Excess ABG Hemoglobin ABG Oxyhemoglobin ABG Sodium ABG Potassium ABG Chloride ABG Glucose Oxyhemoglobin Carboxyhemoglobin Sodium 154 H Potassium 3.1 L D Chloride 122.1 H Carbon Dioxide BUN 26 H Creatinine 0.4 L Glucose 140 H POC Glucose Lactic Acid Calcium 7.3 L Phosphorus Magnesium Total Creatine Kinase Troponin T Total Protein Albumin Triglycerides LDL Cholesterol Direct HDL Cholesterol Arterial Blood Glucose Arterial Blood Ionized Calcium Urine pH Urine WBC (Auto) Vancomycin Trough Salicylates Acetaminophen Crossmatch 11/11/20 11/11/20 11/12/20 18:39 18:42 00:03 WBC RBC Hgb Hct MCV MCH MCHC RDW Plt Count Lymph % (Auto) [place] % (Auto) [place] # (Auto) Seg Neutrophils % Seg Neuts % (Manual) Lymphocytes % (Manual) Nucleated RBC % Seg Neutrophils # Seg Neutrophils # Man Lymphocytes # (Manual) Monocytes # (Manual) PT INR ABG pH POC ABG pCO2 POC ABG pO2 ABG pO2 ABG HCO3 ABG O2 Saturation ABG Base Excess ABG Hemoglobin ABG Oxyhemoglobin ABG Sodium ABG Potassium ABG Chloride ABG Glucose Oxyhemoglobin Carboxyhemoglobin Sodium Potassium Chloride Carbon Dioxide BUN Creatinine Glucose POC Glucose 45 L 66 L 108 H Lactic Acid Calcium Phosphorus Magnesium Total Creatine Kinase Troponin T Total Protein Albumin Triglycerides LDL Cholesterol Direct HDL Cholesterol Arterial Blood Glucose Arterial Blood Ionized Calcium Urine pH Urine WBC (Auto) Vancomycin Trough Salicylates Acetaminophen Crossmatch 11/12/20 11/12/20 11/12/20 05:44 08:33 08:33 WBC 13.4 H RBC 2.35 L Hgb 7.5 L Hct 23.7 L MCV 101 H MCH MCHC RDW 19.7 H Plt Count Lymph % (Auto) [place] % (Auto) [place] # (Auto) Seg Neutrophils % Seg Neuts % (Manual) Lymphocytes % (Manual) Nucleated RBC % Seg Neutrophils # Seg Neutrophils # Man Lymphocytes # (Manual) Monocytes # (Manual) PT INR ABG pH POC ABG pCO2 POC ABG pO2 ABG pO2 ABG HCO3 ABG O2 Saturation ABG Base Excess ABG Hemoglobin ABG Oxyhemoglobin ABG Sodium ABG Potassium ABG Chloride ABG Glucose Oxyhemoglobin Carboxyhemoglobin Sodium 154 H Potassium 2.9 L* Chloride 121.4 H Carbon Dioxide BUN 26 H Creatinine 0.4 L Glucose 153 H POC Glucose 114 H Lactic Acid Calcium 7.3 L Phosphorus Magnesium Total Creatine Kinase Troponin T Total Protein Albumin Triglycerides LDL Cholesterol Direct HDL Cholesterol Arterial Blood Glucose Arterial Blood Ionized Calcium Urine pH Urine WBC (Auto) Vancomycin Trough Salicylates Acetaminophen Crossmatch 11/12/20 11/12/20 11/13/20 11:38 17:17 05:28 WBC RBC Hgb Hct MCV MCH MCHC RDW Plt Count Lymph % (Auto) [place] % (Auto) [place] # (Auto) Seg Neutrophils % Seg Neuts % (Manual) Lymphocytes % (Manual) Nucleated RBC % Seg Neutrophils # Seg Neutrophils # Man Lymphocytes # (Manual) Monocytes # (Manual) PT INR ABG pH POC ABG pCO2 51.4 H POC ABG pO2 41.7 L ABG pO2 ABG HCO3 ABG O2 Saturation ABG Base Excess ABG Hemoglobin 9.1 L ABG Oxyhemoglobin 72.2 L ABG Sodium 151.1 H ABG Potassium 3.2 L ABG Chloride 122.0 H ABG Glucose 191 H Oxyhemoglobin Carboxyhemoglobin Sodium Potassium Chloride Carbon Dioxide BUN Creatinine Glucose POC Glucose 125 H 127 H Lactic Acid Calcium Phosphorus Magnesium Total Creatine Kinase Troponin T Total Protein Albumin Triglycerides LDL Cholesterol Direct HDL Cholesterol Arterial Blood Glucose 191 H Arterial Blood Ionized Calcium Urine pH Urine WBC (Auto) Vancomycin Trough Salicylates Acetaminophen Crossmatch 11/13/20 11/13/20 11/13/20 10:46 23:15 23:15 WBC 12.2 H RBC 2.41 L Hgb 7.7 L Hct 24.5 L MCV 102 H MCH MCHC RDW 23.0 H Plt Count Lymph % (Auto) [place] % (Auto) [place] # (Auto) Seg Neutrophils % Seg Neuts % (Manual) Lymphocytes % (Manual) Nucleated RBC % Seg Neutrophils # Seg Neutrophils # Man Lymphocytes # (Manual) Monocytes # (Manual) PT INR ABG pH POC ABG pCO2 POC ABG pO2 ABG pO2 ABG HCO3 ABG O2 Saturation ABG Base Excess ABG Hemoglobin ABG Oxyhemoglobin ABG Sodium ABG Potassium ABG Chloride ABG Glucose Oxyhemoglobin Carboxyhemoglobin Sodium Potassium Chloride Carbon Dioxide BUN Creatinine Glucose POC Glucose 153 H Lactic Acid Calcium Phosphorus Magnesium Total Creatine Kinase Troponin T 0.123 H* Total Protein Albumin Triglycerides LDL Cholesterol Direct HDL Cholesterol Arterial Blood Glucose Arterial Blood Ionized Calcium Urine pH Urine WBC (Auto) Vancomycin Trough Salicylates Acetaminophen Crossmatch 11/13/20 11/13/20 11/14/20 23:15 Unknown 05:26 WBC RBC Hgb Hct MCV MCH MCHC RDW Plt Count Lymph % (Auto) [place] % (Auto) [place] # (Auto) Seg Neutrophils % Seg Neuts % (Manual) Lymphocytes % (Manual) Nucleated RBC % Seg Neutrophils # Seg Neutrophils # Man Lymphocytes # (Manual) Monocytes # (Manual) PT INR ABG pH 7.295 L POC ABG pCO2 56.0 H POC ABG pO2 49.1 L ABG pO2 ABG HCO3 ABG O2 Saturation ABG Base Excess ABG Hemoglobin 8.3 L ABG Oxyhemoglobin 77.1 L ABG Sodium 150.5 H ABG Potassium 3.3 L ABG Chloride 121.0 H ABG Glucose 187 H Oxyhemoglobin Carboxyhemoglobin Sodium 152 H Potassium 3.3 L Chloride 117.8 H Carbon Dioxide BUN 25 H Creatinine 0.4 L Glucose 123 H POC Glucose 46 L Lactic Acid Calcium 7.5 L Phosphorus Magnesium Total Creatine Kinase Troponin T Total Protein Albumin Triglycerides LDL Cholesterol Direct HDL Cholesterol Arterial Blood Glucose 187 H Arterial Blood Ionized Calcium Urine pH Urine WBC (Auto) Vancomycin Trough Salicylates Acetaminophen Crossmatch 11/14/20 11/14/20 11/14/20 06:26 22:26 22:26 WBC RBC 2.75 L Hgb 9.0 L Hct 27.8 L MCV 101 H MCH 33 H MCHC RDW 22.8 H Plt Count Lymph % (Auto) [place] % (Auto) [place] # (Auto) Seg Neutrophils % Seg Neuts % (Manual) Lymphocytes % (Manual) Nucleated RBC % Seg Neutrophils # Seg Neutrophils # Man Lymphocytes # (Manual) Monocytes # (Manual) PT INR ABG pH POC ABG pCO2 POC ABG pO2 ABG pO2 ABG HCO3 ABG O2 Saturation ABG Base Excess ABG Hemoglobin ABG Oxyhemoglobin ABG Sodium ABG Potassium ABG Chloride ABG Glucose Oxyhemoglobin Carboxyhemoglobin Sodium 147 H Potassium 3.3 L Chloride 114.3 H Carbon Dioxide BUN 23 H Creatinine 0.3 L Glucose 209 H POC Glucose 135 H Lactic Acid Calcium 7.4 L Phosphorus Magnesium Total Creatine Kinase Troponin T Total Protein Albumin Triglycerides LDL Cholesterol Direct HDL Cholesterol Arterial Blood Glucose Arterial Blood Ionized Calcium Urine pH Urine WBC (Auto) Vancomycin Trough Salicylates Acetaminophen Crossmatch 11/14/20 11/15/20 11/15/20 23:22 04:28 05:57 WBC RBC Hgb Hct MCV MCH MCHC RDW Plt Count Lymph % (Auto) [place] % (Auto) [place] # (Auto) Seg Neutrophils % Seg Neuts % (Manual) Lymphocytes % (Manual) Nucleated RBC % Seg Neutrophils # Seg Neutrophils # Man Lymphocytes # (Manual) Monocytes # (Manual) PT INR ABG pH POC ABG pCO2 POC ABG pO2 ABG pO2 ABG HCO3 ABG O2 Saturation ABG Base Excess ABG Hemoglobin ABG Oxyhemoglobin ABG Sodium ABG Potassium ABG Chloride ABG Glucose Oxyhemoglobin Carboxyhemoglobin Sodium 152 H Potassium Chloride 118.1 H Carbon Dioxide BUN 22 H Creatinine 0.3 L Glucose 190 H POC Glucose 136 H 151 H Lactic Acid Calcium 7.5 L Phosphorus Magnesium Total Creatine Kinase Troponin T Total Protein Albumin Triglycerides LDL Cholesterol Direct HDL Cholesterol Arterial Blood Glucose Arterial Blood Ionized Calcium Urine pH Urine WBC (Auto) Vancomycin Trough Salicylates Acetaminophen Crossmatch 11/15/20 11/15/20 11/15/20 11:40 16:56 21:53 WBC RBC Hgb Hct MCV MCH MCHC RDW Plt Count Lymph % (Auto) [place] % (Auto) [place] # (Auto) Seg Neutrophils % Seg Neuts % (Manual) Lymphocytes % (Manual) Nucleated RBC % Seg Neutrophils # Seg Neutrophils # Man Lymphocytes # (Manual) Monocytes # (Manual) PT INR ABG pH 7.457 H POC ABG pCO2 POC ABG pO2 ABG pO2 48.3 L ABG HCO3 26.1 H ABG O2 Saturation 82.9 L ABG Base Excess ABG Hemoglobin 9.7 L ABG Oxyhemoglobin ABG Sodium ABG Potassium ABG Chloride ABG Glucose Oxyhemoglobin 81.0 L Carboxyhemoglobin Sodium Potassium Chloride Carbon Dioxide BUN Creatinine Glucose POC Glucose 129 H 115 H Lactic Acid Calcium Phosphorus Magnesium Total Creatine Kinase Troponin T Total Protein Albumin Triglycerides LDL Cholesterol Direct HDL Cholesterol Arterial Blood Glucose Arterial Blood Ionized Calcium Urine pH Urine WBC (Auto) Vancomycin Trough Salicylates Acetaminophen Crossmatch 11/15/20 11/16/20 11/16/20 23:12 00:07 00:09 WBC RBC Hgb Hct MCV MCH MCHC RDW Plt Count Lymph % (Auto) [place] % (Auto) [place] # (Auto) Seg Neutrophils % Seg Neuts % (Manual) Lymphocytes % (Manual) Nucleated RBC % Seg Neutrophils # Seg Neutrophils # Man Lymphocytes # (Manual) Monocytes # (Manual) PT INR ABG pH POC ABG pCO2 POC ABG pO2 ABG pO2 95.1 H ABG HCO3 26.6 H ABG O2 Saturation ABG Base Excess ABG Hemoglobin 7.5 L ABG Oxyhemoglobin ABG Sodium ABG Potassium ABG Chloride ABG Glucose Oxyhemoglobin Carboxyhemoglobin Sodium Potassium Chloride Carbon Dioxide BUN Creatinine Glucose POC Glucose 13 L 153 H Lactic Acid Calcium Phosphorus Magnesium Total Creatine Kinase Troponin T Total Protein Albumin Triglycerides LDL Cholesterol Direct HDL Cholesterol Arterial Blood Glucose Arterial Blood Ionized Calcium Urine pH Urine WBC (Auto) Vancomycin Trough Salicylates Acetaminophen Crossmatch 11/16/20 11/16/20 11/16/20 03:43 04:00 04:00 WBC RBC 2.33 L Hgb 7.7 L Hct 24.5 L MCV 105 H MCH 33 H MCHC 31 L RDW 22.9 H Plt Count Lymph % (Auto) [place] % (Auto) [place] # (Auto) Seg Neutrophils % Seg Neuts % (Manual) Lymphocytes % (Manual) Nucleated RBC % Seg Neutrophils # Seg Neutrophils # Man Lymphocytes # (Manual) Monocytes # (Manual) PT INR ABG pH 7.348 L POC ABG pCO2 POC ABG pO2 ABG pO2 91.6 H ABG HCO3 26.3 H ABG O2 Saturation ABG Base Excess ABG Hemoglobin 7.3 L ABG Oxyhemoglobin ABG Sodium ABG Potassium ABG Chloride ABG Glucose Oxyhemoglobin Carboxyhemoglobin Sodium 148 H Potassium 3.5 L Chloride 115.9 H Carbon Dioxide BUN Creatinine 0.4 L Glucose 195 H POC Glucose Lactic Acid Calcium 7.6 L Phosphorus Magnesium Total Creatine Kinase Troponin T Total Protein Albumin Triglycerides LDL Cholesterol Direct HDL Cholesterol Arterial Blood Glucose Arterial Blood Ionized Calcium Urine pH Urine WBC (Auto) Vancomycin Trough Salicylates Acetaminophen Crossmatch 11/16/20 11/16/20 11/16/20 05:16 07:40 12:10 WBC RBC Hgb Hct MCV MCH MCHC RDW Plt Count Lymph % (Auto) [place] % (Auto) [place] # (Auto) Seg Neutrophils % Seg Neuts % (Manual) Lymphocytes % (Manual) Nucleated RBC % Seg Neutrophils # Seg Neutrophils # Man Lymphocytes # (Manual) Monocytes # (Manual) PT INR ABG pH POC ABG pCO2 POC ABG pO2 ABG pO2 ABG HCO3 ABG O2 Saturation ABG Base Excess ABG Hemoglobin ABG Oxyhemoglobin ABG Sodium ABG Potassium ABG Chloride ABG Glucose Oxyhemoglobin Carboxyhemoglobin Sodium Potassium Chloride Carbon Dioxide BUN Creatinine Glucose POC Glucose 61 L 122 H 140 H Lactic Acid Calcium Phosphorus Magnesium Total Creatine Kinase Troponin T Total Protein Albumin Triglycerides LDL Cholesterol Direct HDL Cholesterol Arterial Blood Glucose Arterial Blood Ionized Calcium Urine pH Urine WBC (Auto) Vancomycin Trough Salicylates Acetaminophen Crossmatch 11/16/20 11/16/20 11/17/20 17:14 23:40 04:30 WBC RBC Hgb Hct MCV MCH MCHC RDW Plt Count Lymph % (Auto) [place] % (Auto) [place] # (Auto) Seg Neutrophils % Seg Neuts % (Manual) Lymphocytes % (Manual) Nucleated RBC % Seg Neutrophils # Seg Neutrophils # Man Lymphocytes # (Manual) Monocytes # (Manual) PT INR ABG pH 7.470 H POC ABG pCO2 POC ABG pO2 75.4 L ABG pO2 ABG HCO3 ABG O2 Saturation ABG Base Excess ABG Hemoglobin 7 L ABG Oxyhemoglobin ABG Sodium ABG Potassium ABG Chloride 116.0 H ABG Glucose 161 H Oxyhemoglobin Carboxyhemoglobin Sodium Potassium Chloride Carbon Dioxide BUN Creatinine Glucose POC Glucose 139 H 151 H Lactic Acid Calcium Phosphorus Magnesium Total Creatine Kinase Troponin T Total Protein Albumin Triglycerides LDL Cholesterol Direct HDL Cholesterol Arterial Blood Glucose 161 H Arterial Blood Ionized Calcium Urine pH Urine WBC (Auto) Vancomycin Trough Salicylates Acetaminophen Crossmatch 11/17/20 11/17/20 11/17/20 09:50 09:50 11:10 WBC RBC 2.02 L Hgb 6.6 L Hct 20.2 L MCV 100 H MCH 33 H MCHC RDW 22.4 H Plt Count Lymph % (Auto) [place] % (Auto) [place] # (Auto) Seg Neutrophils % Seg Neuts % (Manual) Lymphocytes % (Manual) Nucleated RBC % Seg Neutrophils # Seg Neutrophils # Man Lymphocytes # (Manual) Monocytes # (Manual) PT INR ABG pH POC ABG pCO2 POC ABG pO2 ABG pO2 ABG HCO3 ABG O2 Saturation ABG Base Excess ABG Hemoglobin ABG Oxyhemoglobin ABG Sodium ABG Potassium ABG Chloride ABG Glucose Oxyhemoglobin Carboxyhemoglobin Sodium Potassium Chloride 111.8 H Carbon Dioxide BUN 23 H Creatinine 0.4 L Glucose 142 H POC Glucose Lactic Acid Calcium 7.3 L Phosphorus Magnesium Total Creatine Kinase Troponin T Total Protein Albumin Triglycerides LDL Cholesterol Direct HDL Cholesterol Arterial Blood Glucose Arterial Blood Ionized Calcium Urine pH Urine WBC (Auto) Vancomycin Trough Salicylates Acetaminophen Crossmatch See Detail 11/17/20 11/17/20 11/17/20 11:52 11:57 23:22 WBC RBC Hgb Hct MCV MCH MCHC RDW Plt Count Lymph % (Auto) [place] % (Auto) [place] # (Auto) Seg Neutrophils % Seg Neuts % (Manual) Lymphocytes % (Manual) Nucleated RBC % Seg Neutrophils # Seg Neutrophils # Man Lymphocytes # (Manual) Monocytes # (Manual) PT INR ABG pH POC ABG pCO2 POC ABG pO2 ABG pO2 ABG HCO3 ABG O2 Saturation ABG Base Excess ABG Hemoglobin ABG Oxyhemoglobin ABG Sodium ABG Potassium ABG Chloride ABG Glucose Oxyhemoglobin Carboxyhemoglobin Sodium Potassium Chloride Carbon Dioxide BUN Creatinine Glucose POC Glucose 42 L 114 H 63 L Lactic Acid Calcium Phosphorus Magnesium Total Creatine Kinase Troponin T Total Protein Albumin Triglycerides LDL Cholesterol Direct HDL Cholesterol Arterial Blood Glucose Arterial Blood Ionized Calcium Urine pH Urine WBC (Auto) Vancomycin Trough Salicylates Acetaminophen Crossmatch 11/17/20 11/18/20 11/18/20 23:27 04:06 04:45 WBC RBC 2.36 L Hgb 7.4 L Hct 23.4 L MCV 99 H MCH MCHC RDW 21.6 H Plt Count Lymph % (Auto) [place] % (Auto) [place] # (Auto) Seg Neutrophils % Seg Neuts % (Manual) Lymphocytes % (Manual) Nucleated RBC % Seg Neutrophils # Seg Neutrophils # Man Lymphocytes # (Manual) Monocytes # (Manual) PT INR ABG pH POC ABG pCO2 POC ABG pO2 67.7 L ABG pO2 ABG HCO3 ABG O2 Saturation ABG Base Excess ABG Hemoglobin 8.3 L ABG Oxyhemoglobin ABG Sodium ABG Potassium ABG Chloride 112.0 H ABG Glucose 143 H Oxyhemoglobin Carboxyhemoglobin Sodium Potassium Chloride Carbon Dioxide BUN Creatinine Glucose POC Glucose 124 H Lactic Acid Calcium Phosphorus Magnesium Total Creatine Kinase Troponin T Total Protein Albumin Triglycerides LDL Cholesterol Direct HDL Cholesterol Arterial Blood Glucose 143 H Arterial Blood Ionized Calcium 4.5 L Urine pH Urine WBC (Auto) Vancomycin Trough Salicylates Acetaminophen Crossmatch 11/18/20 11/18/20 11/18/20 04:45 05:56 23:46 WBC RBC Hgb Hct MCV MCH MCHC RDW Plt Count Lymph % (Auto) [place] % (Auto) [place] # (Auto) Seg Neutrophils % Seg Neuts % (Manual) Lymphocytes % (Manual) Nucleated RBC % Seg Neutrophils # Seg Neutrophils # Man Lymphocytes # (Manual) Monocytes # (Manual) PT INR ABG pH POC ABG pCO2 POC ABG pO2 ABG pO2 ABG HCO3 ABG O2 Saturation ABG Base Excess ABG Hemoglobin ABG Oxyhemoglobin ABG Sodium ABG Potassium ABG Chloride ABG Glucose Oxyhemoglobin Carboxyhemoglobin Sodium Potassium Chloride 107.9 H Carbon Dioxide BUN 23 H Creatinine 0.4 L Glucose 139 H POC Glucose 133 H 66 L Lactic Acid Calcium 7.6 L Phosphorus Magnesium Total Creatine Kinase Troponin T Total Protein Albumin Triglycerides LDL Cholesterol Direct HDL Cholesterol Arterial Blood Glucose Arterial Blood Ionized Calcium Urine pH Urine WBC (Auto) Vancomycin Trough Salicylates Acetaminophen Crossmatch 11/18/20 11/19/20 11/19/20 23:52 05:48 06:36 WBC RBC Hgb Hct MCV MCH MCHC RDW Plt Count Lymph % (Auto) [place] % (Auto) [place] # (Auto) Seg Neutrophils % Seg Neuts % (Manual) Lymphocytes % (Manual) Nucleated RBC % Seg Neutrophils # Seg Neutrophils # Man Lymphocytes # (Manual) Monocytes # (Manual) PT INR ABG pH POC ABG pCO2 POC ABG pO2 ABG pO2 ABG HCO3 ABG O2 Saturation ABG Base Excess ABG Hemoglobin ABG Oxyhemoglobin ABG Sodium ABG Potassium ABG Chloride ABG Glucose Oxyhemoglobin Carboxyhemoglobin Sodium Potassium Chloride Carbon Dioxide BUN 21 H Creatinine 0.4 L Glucose 119 H POC Glucose 118 H 108 H Lactic Acid Calcium 7.8 L Phosphorus Magnesium Total Creatine Kinase Troponin T Total Protein Albumin Triglycerides LDL Cholesterol Direct HDL Cholesterol Arterial Blood Glucose Arterial Blood Ionized Calcium Urine pH Urine WBC (Auto) Vancomycin Trough Salicylates Acetaminophen Crossmatch 11/19/20 11/19/20 11/19/20 06:36 06:36 18:15 WBC RBC 2.79 L Hgb 9.0 L Hct 27.8 L MCV 100 H MCH MCHC RDW 20.7 H Plt Count Lymph % (Auto) [place] % (Auto) [place] # (Auto) Seg Neutrophils % Seg Neuts % (Manual) Lymphocytes % (Manual) Nucleated RBC % Seg Neutrophils # Seg Neutrophils # Man Lymphocytes # (Manual) Monocytes # (Manual) PT INR 1.15 H ABG pH POC ABG pCO2 POC ABG pO2 ABG pO2 ABG HCO3 ABG O2 Saturation ABG Base Excess ABG Hemoglobin ABG Oxyhemoglobin ABG Sodium ABG Potassium ABG Chloride ABG Glucose Oxyhemoglobin Carboxyhemoglobin Sodium Potassium Chloride Carbon Dioxide BUN Creatinine Glucose POC Glucose 115 H Lactic Acid Calcium Phosphorus Magnesium Total Creatine Kinase Troponin T Total Protein Albumin Triglycerides LDL Cholesterol Direct HDL Cholesterol Arterial Blood Glucose Arterial Blood Ionized Calcium Urine pH Urine WBC (Auto) Vancomycin Trough Salicylates Acetaminophen Crossmatch 11/19/20 11/19/20 11/20/20 23:27 Unknown 04:56 WBC RBC Hgb Hct MCV MCH MCHC RDW Plt Count Lymph % (Auto) [place] % (Auto) [place] # (Auto) Seg Neutrophils % Seg Neuts % (Manual) Lymphocytes % (Manual) Nucleated RBC % Seg Neutrophils # Seg Neutrophils # Man Lymphocytes # (Manual) Monocytes # (Manual) PT INR ABG pH 7.457 H POC ABG pCO2 POC ABG pO2 57.4 L ABG pO2 72.4 L ABG HCO3 26.9 H ABG O2 Saturation ABG Base Excess ABG Hemoglobin 8.5 L 9.6 L ABG Oxyhemoglobin 90.1 L ABG Sodium ABG Potassium ABG Chloride 109.0 H ABG Glucose 142 H Oxyhemoglobin 94.1 L Carboxyhemoglobin Sodium Potassium Chloride Carbon Dioxide BUN Creatinine Glucose POC Glucose 129 H Lactic Acid Calcium Phosphorus Magnesium Total Creatine Kinase Troponin T Total Protein Albumin Triglycerides LDL Cholesterol Direct HDL Cholesterol Arterial Blood Glucose 142 H Arterial Blood Ionized Calcium Urine pH Urine WBC (Auto) Vancomycin Trough Salicylates Acetaminophen Crossmatch 11/20/20 11/20/20 11/20/20 05:07 05:45 05:45 WBC 11.7 H RBC 2.74 L Hgb 8.9 L Hct 26.3 L MCV 96 H MCH 33 H MCHC RDW 18.6 H Plt Count Lymph % (Auto) [place] % (Auto) [place] # (Auto) Seg Neutrophils % Seg Neuts % (Manual) Lymphocytes % (Manual) Nucleated RBC % Seg Neutrophils # Seg Neutrophils # Man Lymphocytes # (Manual) Monocytes # (Manual) PT INR ABG pH POC ABG pCO2 POC ABG pO2 ABG pO2 ABG HCO3 ABG O2 Saturation ABG Base Excess ABG Hemoglobin ABG Oxyhemoglobin ABG Sodium ABG Potassium ABG Chloride ABG Glucose Oxyhemoglobin Carboxyhemoglobin Sodium Potassium Chloride Carbon Dioxide 31 H BUN Creatinine 0.4 L Glucose 127 H POC Glucose 129 H Lactic Acid Calcium 8.0 L Phosphorus Magnesium Total Creatine Kinase Troponin T Total Protein Albumin Triglycerides LDL Cholesterol Direct HDL Cholesterol Arterial Blood Glucose Arterial Blood Ionized Calcium Urine pH Urine WBC (Auto) Vancomycin Trough Salicylates Acetaminophen Crossmatch 11/20/20 11/20/20 11/21/20 12:02 17:52 00:02 WBC RBC Hgb Hct MCV MCH MCHC RDW Plt Count Lymph % (Auto) [place] % (Auto) [place] # (Auto) Seg Neutrophils % Seg Neuts % (Manual) Lymphocytes % (Manual) Nucleated RBC % Seg Neutrophils # Seg Neutrophils # Man Lymphocytes # (Manual) Monocytes # (Manual) PT INR ABG pH POC ABG pCO2 POC ABG pO2 ABG pO2 ABG HCO3 ABG O2 Saturation ABG Base Excess ABG Hemoglobin ABG Oxyhemoglobin ABG Sodium ABG Potassium ABG Chloride ABG Glucose Oxyhemoglobin Carboxyhemoglobin Sodium Potassium Chloride Carbon Dioxide BUN Creatinine Glucose POC Glucose 134 H 115 H 116 H Lactic Acid Calcium Phosphorus Magnesium Total Creatine Kinase Troponin T Total Protein Albumin Triglycerides LDL Cholesterol Direct HDL Cholesterol Arterial Blood Glucose Arterial Blood Ionized Calcium Urine pH Urine WBC (Auto) Vancomycin Trough Salicylates Acetaminophen Crossmatch 11/21/20 11/21/20 11/21/20 03:23 04:00 05:14 WBC RBC Hgb Hct MCV MCH MCHC RDW Plt Count Lymph % (Auto) [place] % (Auto) [place] # (Auto) Seg Neutrophils % Seg Neuts % (Manual) Lymphocytes % (Manual) Nucleated RBC % Seg Neutrophils # Seg Neutrophils # Man Lymphocytes # (Manual) Monocytes # (Manual) PT INR ABG pH 7.479 H POC ABG pCO2 POC ABG pO2 73.7 L ABG pO2 ABG HCO3 ABG O2 Saturation ABG Base Excess ABG Hemoglobin 9.4 L ABG Oxyhemoglobin ABG Sodium ABG Potassium ABG Chloride 108.0 H ABG Glucose 135 H Oxyhemoglobin Carboxyhemoglobin Sodium Potassium Chloride Carbon Dioxide 34 H BUN Creatinine 0.4 L Glucose 125 H POC Glucose 116 H Lactic Acid Calcium 7.9 L Phosphorus Magnesium Total Creatine Kinase Troponin T Total Protein Albumin Triglycerides LDL Cholesterol Direct HDL Cholesterol Arterial Blood Glucose 135 H Arterial Blood Ionized Calcium 4.5 L Urine pH Urine WBC (Auto) Vancomycin Trough Salicylates Acetaminophen Crossmatch 11/22/20 11/22/20 11/22/20 04:00 04:00 05:34 WBC 12.2 H RBC 2.74 L Hgb 8.7 L Hct 27.4 L MCV 100 H MCH MCHC RDW 19.2 H Plt Count Lymph % (Auto) [place] % (Auto) [place] # (Auto) Seg Neutrophils % Seg Neuts % (Manual) Lymphocytes % (Manual) Nucleated RBC % Seg Neutrophils # Seg Neutrophils # Man Lymphocytes # (Manual) Monocytes # (Manual) PT INR ABG pH POC ABG pCO2 POC ABG pO2 ABG pO2 ABG HCO3 ABG O2 Saturation ABG Base Excess ABG Hemoglobin ABG Oxyhemoglobin ABG Sodium ABG Potassium ABG Chloride ABG Glucose Oxyhemoglobin Carboxyhemoglobin Sodium Potassium Chloride Carbon Dioxide BUN Creatinine 0.4 L Glucose POC Glucose 58 L Lactic Acid Calcium 7.7 L Phosphorus Magnesium Total Creatine Kinase Troponin T Total Protein Albumin Triglycerides LDL Cholesterol Direct HDL Cholesterol Arterial Blood Glucose Arterial Blood Ionized Calcium Urine pH Urine WBC (Auto) Vancomycin Trough Salicylates Acetaminophen Crossmatch 11/22/20 11/23/20 11/23/20 11:48 00:15 04:25 WBC RBC Hgb Hct MCV MCH MCHC RDW Plt Count Lymph % (Auto) [place] % (Auto) [place] # (Auto) Seg Neutrophils % Seg Neuts % (Manual) Lymphocytes % (Manual) Nucleated RBC % Seg Neutrophils # Seg Neutrophils # Man Lymphocytes # (Manual) Monocytes # (Manual) PT INR ABG pH 7.489 H POC ABG pCO2 POC ABG pO2 74.7 L ABG pO2 ABG HCO3 ABG O2 Saturation ABG Base Excess ABG Hemoglobin 9.6 L ABG Oxyhemoglobin ABG Sodium 135.6 L ABG Potassium ABG Chloride ABG Glucose 119 H Oxyhemoglobin Carboxyhemoglobin Sodium Potassium Chloride Carbon Dioxide BUN Creatinine Glucose POC Glucose 60 L 106 H Lactic Acid Calcium Phosphorus Magnesium Total Creatine Kinase Troponin T Total Protein Albumin Triglycerides LDL Cholesterol Direct HDL Cholesterol Arterial Blood Glucose 119 H Arterial Blood Ionized Calcium 4.4 L Urine pH Urine WBC (Auto) Vancomycin Trough Salicylates Acetaminophen Crossmatch 11/23/20 11/23/20 11/23/20 05:27 10:23 10:23 WBC 11.3 H RBC 2.58 L Hgb 8.4 L Hct 24.7 L MCV 96 H MCH MCHC RDW 18.2 H Plt Count Lymph % (Auto) [place] % (Auto) [place] # (Auto) Seg Neutrophils % Seg Neuts % (Manual) 94.0 H Lymphocytes % (Manual) 5.0 L Nucleated RBC % Seg Neutrophils # Seg Neutrophils # Man 10.6 H Lymphocytes # (Manual) 0.6 L Monocytes # (Manual) PT INR ABG pH POC ABG pCO2 POC ABG pO2 ABG pO2 ABG HCO3 ABG O2 Saturation ABG Base Excess ABG Hemoglobin ABG Oxyhemoglobin ABG Sodium ABG Potassium ABG Chloride ABG Glucose Oxyhemoglobin Carboxyhemoglobin Sodium Potassium Chloride Carbon Dioxide BUN Creatinine 0.4 L Glucose 101 H POC Glucose 121 H Lactic Acid Calcium 7.2 L Phosphorus Magnesium Total Creatine Kinase Troponin T Total Protein Albumin Triglycerides LDL Cholesterol Direct HDL Cholesterol Arterial Blood Glucose Arterial Blood Ionized Calcium Urine pH Urine WBC (Auto) Vancomycin Trough Salicylates Acetaminophen Crossmatch 11/23/20 11/23/20 11/24/20 11:53 23:19 05:31 WBC RBC Hgb Hct MCV MCH MCHC RDW Plt Count Lymph % (Auto) [place] % (Auto) [place] # (Auto) Seg Neutrophils % Seg Neuts % (Manual) Lymphocytes % (Manual) Nucleated RBC % Seg Neutrophils # Seg Neutrophils # Man Lymphocytes # (Manual) Monocytes # (Manual) PT INR ABG pH POC ABG pCO2 POC ABG pO2 ABG pO2 ABG HCO3 ABG O2 Saturation ABG Base Excess ABG Hemoglobin ABG Oxyhemoglobin ABG Sodium ABG Potassium ABG Chloride ABG Glucose Oxyhemoglobin Carboxyhemoglobin Sodium Potassium Chloride Carbon Dioxide BUN Creatinine Glucose POC Glucose 112 H 120 H 132 H Lactic Acid Calcium Phosphorus Magnesium Total Creatine Kinase Troponin T Total Protein Albumin Triglycerides LDL Cholesterol Direct HDL Cholesterol Arterial Blood Glucose Arterial Blood Ionized Calcium Urine pH Urine WBC (Auto) Vancomycin Trough Salicylates Acetaminophen Crossmatch 11/24/20 11/24/20 11/24/20 11:27 16:48 23:11 WBC RBC Hgb Hct MCV MCH MCHC RDW Plt Count Lymph % (Auto) [place] % (Auto) [place] # (Auto) Seg Neutrophils % Seg Neuts % (Manual) Lymphocytes % (Manual) Nucleated RBC % Seg Neutrophils # Seg Neutrophils # Man Lymphocytes # (Manual) Monocytes # (Manual) PT INR ABG pH POC ABG pCO2 POC ABG pO2 ABG pO2 ABG HCO3 ABG O2 Saturation ABG Base Excess ABG Hemoglobin ABG Oxyhemoglobin ABG Sodium ABG Potassium ABG Chloride ABG Glucose Oxyhemoglobin Carboxyhemoglobin Sodium Potassium Chloride Carbon Dioxide BUN Creatinine Glucose POC Glucose 137 H 128 H 114 H Lactic Acid Calcium Phosphorus Magnesium Total Creatine Kinase Troponin T Total Protein Albumin Triglycerides LDL Cholesterol Direct HDL Cholesterol Arterial Blood Glucose Arterial Blood Ionized Calcium Urine pH Urine WBC (Auto) Vancomycin Trough Salicylates Acetaminophen Crossmatch 11/25/20 11/25/20 11/25/20 05:06 11:20 11:31 WBC 19.0 H RBC 2.28 L Hgb 7.3 L Hct 22.5 L MCV 99 H MCH MCHC RDW 18.3 H Plt Count Lymph % (Auto) [place] % (Auto) [place] # (Auto) Seg Neutrophils % Seg Neuts % (Manual) Lymphocytes % (Manual) Nucleated RBC % Seg Neutrophils # Seg Neutrophils # Man Lymphocytes # (Manual) Monocytes # (Manual) PT INR ABG pH POC ABG pCO2 POC ABG pO2 ABG pO2 ABG HCO3 ABG O2 Saturation ABG Base Excess ABG Hemoglobin ABG Oxyhemoglobin ABG Sodium ABG Potassium ABG Chloride ABG Glucose Oxyhemoglobin Carboxyhemoglobin Sodium Potassium Chloride Carbon Dioxide BUN Creatinine Glucose POC Glucose 125 H 106 H Lactic Acid Calcium Phosphorus Magnesium Total Creatine Kinase Troponin T Total Protein Albumin Triglycerides LDL Cholesterol Direct HDL Cholesterol Arterial Blood Glucose Arterial Blood Ionized Calcium Urine pH Urine WBC (Auto) Vancomycin Trough Salicylates Acetaminophen Crossmatch 11/25/20 11/26/20 11/26/20 16:25 09:25 12:01 WBC 20.8 H RBC 2.82 L Hgb 8.7 L Hct 27.3 L MCV 97 H MCH MCHC RDW 17.9 H Plt Count Lymph % (Auto) [place] % (Auto) [place] # (Auto) Seg Neutrophils % Seg Neuts % (Manual) Lymphocytes % (Manual) Nucleated RBC % Seg Neutrophils # Seg Neutrophils # Man Lymphocytes # (Manual) Monocytes # (Manual) PT INR ABG pH 7.480 H POC ABG pCO2 POC ABG pO2 78.1 L ABG pO2 ABG HCO3 ABG O2 Saturation ABG Base Excess ABG Hemoglobin 8.5 L ABG Oxyhemoglobin ABG Sodium ABG Potassium ABG Chloride ABG Glucose 114 H Oxyhemoglobin Carboxyhemoglobin Sodium Potassium Chloride Carbon Dioxide BUN Creatinine Glucose POC Glucose 130 H Lactic Acid Calcium Phosphorus Magnesium Total Creatine Kinase Troponin T Total Protein Albumin Triglycerides LDL Cholesterol Direct HDL Cholesterol Arterial Blood Glucose 114 H Arterial Blood Ionized Calcium 4.5 L Urine pH Urine WBC (Auto) Vancomycin Trough Salicylates Acetaminophen Crossmatch 11/26/20 11/26/20 11/27/20 16:55 23:43 05:55 WBC 18.1 H RBC 2.48 L Hgb 7.8 L Hct 23.9 L MCV 97 H MCH MCHC RDW 17.7 H Plt Count Lymph % (Auto) [place] % (Auto) [place] # (Auto) Seg Neutrophils % Seg Neuts % (Manual) Lymphocytes % (Manual) Nucleated RBC % Seg Neutrophils # Seg Neutrophils # Man Lymphocytes # (Manual) Monocytes # (Manual) PT INR ABG pH POC ABG pCO2 POC ABG pO2 ABG pO2 ABG HCO3 ABG O2 Saturation ABG Base Excess ABG Hemoglobin ABG Oxyhemoglobin ABG Sodium ABG Potassium ABG Chloride ABG Glucose Oxyhemoglobin Carboxyhemoglobin Sodium Potassium Chloride Carbon Dioxide BUN Creatinine Glucose POC Glucose 123 H 110 H Lactic Acid Calcium Phosphorus Magnesium Total Creatine Kinase Troponin T Total Protein Albumin Triglycerides LDL Cholesterol Direct HDL Cholesterol Arterial Blood Glucose Arterial Blood Ionized Calcium Urine pH Urine WBC (Auto) Vancomycin Trough Salicylates Acetaminophen Crossmatch 11/27/20 11/27/20 11/27/20 05:55 11:41 18:08 WBC RBC Hgb Hct MCV MCH MCHC RDW Plt Count Lymph % (Auto) [place] % (Auto) [place] # (Auto) Seg Neutrophils % Seg Neuts % (Manual) Lymphocytes % (Manual) Nucleated RBC % Seg Neutrophils # Seg Neutrophils # Man Lymphocytes # (Manual) Monocytes # (Manual) PT INR ABG pH POC ABG pCO2 POC ABG pO2 ABG pO2 ABG HCO3 ABG O2 Saturation ABG Base Excess ABG Hemoglobin ABG Oxyhemoglobin ABG Sodium ABG Potassium ABG Chloride ABG Glucose Oxyhemoglobin Carboxyhemoglobin Sodium Potassium Chloride Carbon Dioxide 32 H BUN Creatinine 0.4 L Glucose 133 H POC Glucose 111 H 115 H Lactic Acid Calcium 7.5 L Phosphorus Magnesium Total Creatine Kinase Troponin T Total Protein 6.1 L Albumin 1.7 L Triglycerides LDL Cholesterol Direct HDL Cholesterol Arterial Blood Glucose Arterial Blood Ionized Calcium Urine pH Urine WBC (Auto) Vancomycin Trough Salicylates Acetaminophen Crossmatch 11/27/20 11/28/20 11/28/20 23:29 03:56 05:12 WBC RBC Hgb Hct MCV MCH MCHC RDW Plt Count Lymph % (Auto) [place] % (Auto) [place] # (Auto) Seg Neutrophils % Seg Neuts % (Manual) Lymphocytes % (Manual) Nucleated RBC % Seg Neutrophils # Seg Neutrophils # Man Lymphocytes # (Manual) Monocytes # (Manual) PT INR ABG pH 7.515 H POC ABG pCO2 POC ABG pO2 74.5 L ABG pO2 ABG HCO3 ABG O2 Saturation ABG Base Excess ABG Hemoglobin 8.4 L ABG Oxyhemoglobin ABG Sodium ABG Potassium ABG Chloride ABG Glucose 130 H Oxyhemoglobin Carboxyhemoglobin Sodium Potassium Chloride Carbon Dioxide BUN Creatinine Glucose POC Glucose 112 H 113 H Lactic Acid Calcium Phosphorus Magnesium Total Creatine Kinase Troponin T Total Protein Albumin Triglycerides LDL Cholesterol Direct HDL Cholesterol Arterial Blood Glucose 130 H Arterial Blood Ionized Calcium 4.5 L Urine pH Urine WBC (Auto) Vancomycin Trough Salicylates Acetaminophen Crossmatch 11/28/20 11/28/20 11/29/20 06:24 23:44 05:33 WBC RBC Hgb Hct MCV MCH MCHC RDW Plt Count Lymph % (Auto) [place] % (Auto) [place] # (Auto) Seg Neutrophils % Seg Neuts % (Manual) Lymphocytes % (Manual) Nucleated RBC % Seg Neutrophils # Seg Neutrophils # Man Lymphocytes # (Manual) Monocytes # (Manual) PT INR ABG pH POC ABG pCO2 POC ABG pO2 ABG pO2 ABG HCO3 ABG O2 Saturation ABG Base Excess ABG Hemoglobin ABG Oxyhemoglobin ABG Sodium ABG Potassium ABG Chloride ABG Glucose Oxyhemoglobin Carboxyhemoglobin Sodium 136 L Potassium Chloride Carbon Dioxide BUN Creatinine 0.4 L Glucose 124 H POC Glucose 112 H 107 H Lactic Acid Calcium 7.4 L Phosphorus Magnesium Total Creatine Kinase Troponin T Total Protein Albumin Triglycerides LDL Cholesterol Direct HDL Cholesterol Arterial Blood Glucose Arterial Blood Ionized Calcium Urine pH Urine WBC (Auto) Vancomycin Trough Salicylates Acetaminophen Crossmatch 11/29/20 11/29/20 11/29/20 11:59 23:16 23:16 WBC 15.5 H RBC 2.40 L Hgb 7.5 L Hct 23.1 L MCV 96 H MCH MCHC RDW 17.6 H Plt Count Lymph % (Auto) [place] % (Auto) [place] # (Auto) Seg Neutrophils % Seg Neuts % (Manual) Lymphocytes % (Manual) Nucleated RBC % Seg Neutrophils # Seg Neutrophils # Man Lymphocytes # (Manual) Monocytes # (Manual) PT INR ABG pH POC ABG pCO2 POC ABG pO2 ABG pO2 ABG HCO3 ABG O2 Saturation ABG Base Excess ABG Hemoglobin ABG Oxyhemoglobin ABG Sodium ABG Potassium ABG Chloride ABG Glucose Oxyhemoglobin Carboxyhemoglobin Sodium 135 L Potassium Chloride Carbon Dioxide 31 H BUN Creatinine 0.4 L Glucose 110 H POC Glucose 121 H Lactic Acid Calcium 7.6 L Phosphorus Magnesium Total Creatine Kinase Troponin T Total Protein Albumin Triglycerides LDL Cholesterol Direct HDL Cholesterol Arterial Blood Glucose Arterial Blood Ionized Calcium Urine pH Urine WBC (Auto) Vancomycin Trough Salicylates Acetaminophen Crossmatch 11/30/20 11/30/20 11/30/20 00:14 05:14 05:14 WBC 15.6 H RBC 2.46 L Hgb 7.7 L Hct 23.8 L MCV 97 H MCH MCHC RDW 17.2 H Plt Count Lymph % (Auto) 9.5 L [place] % (Auto) 10.3 H [place] # (Auto) 1.6 H Seg Neutrophils % 79.3 H Seg Neuts % (Manual) Lymphocytes % (Manual) Nucleated RBC % Seg Neutrophils # 12.3 H Seg Neutrophils # Man Lymphocytes # (Manual) Monocytes # (Manual) PT INR ABG pH POC ABG pCO2 POC ABG pO2 ABG pO2 ABG HCO3 ABG O2 Saturation ABG Base Excess ABG Hemoglobin ABG Oxyhemoglobin ABG Sodium ABG Potassium ABG Chloride ABG Glucose Oxyhemoglobin Carboxyhemoglobin Sodium Potassium Chloride Carbon Dioxide BUN 21 H Creatinine 0.4 L Glucose 126 H POC Glucose 109 H Lactic Acid Calcium 7.7 L Phosphorus Magnesium Total Creatine Kinase Troponin T Total Protein Albumin Triglycerides LDL Cholesterol Direct HDL Cholesterol Arterial Blood Glucose Arterial Blood Ionized Calcium Urine pH Urine WBC (Auto) Vancomycin Trough Salicylates Acetaminophen Crossmatch 11/30/20 06:10 WBC RBC Hgb Hct MCV MCH MCHC RDW Plt Count Lymph % (Auto) [place] % (Auto) [place] # (Auto) Seg Neutrophils % Seg Neuts % (Manual) Lymphocytes % (Manual) Nucleated RBC % Seg Neutrophils # Seg Neutrophils # Man Lymphocytes # (Manual) Monocytes # (Manual) PT INR ABG pH POC ABG pCO2 POC ABG pO2 ABG pO2 ABG HCO3 ABG O2 Saturation ABG Base Excess ABG Hemoglobin ABG Oxyhemoglobin ABG Sodium ABG Potassium ABG Chloride ABG Glucose Oxyhemoglobin Carboxyhemoglobin Sodium Potassium Chloride Carbon Dioxide BUN Creatinine Glucose POC Glucose 120 H Lactic Acid Calcium Phosphorus Magnesium Total Creatine Kinase Troponin T Total Protein Albumin Triglycerides LDL Cholesterol Direct HDL Cholesterol Arterial Blood Glucose Arterial Blood Ionized Calcium Urine pH Urine WBC (Auto) Vancomycin Trough Salicylates Acetaminophen Crossmatch Allied health notes reviewed: nursing
[2020-11-30] MEDS: ENOXAPARIN 40 MG/0.4 ML INJ SUB-Q SCH (21:04)
[2020-12-01] MEDS: ALBUTEROL 2.5 MG/3 ML NEBU IH SCH ×3 (08:20→20:54)
[2020-12-01] MEDS: MIDODRINE 5 MG TAB PO SCH ×3 (08:43→16:31)
[2020-12-01] MEDS: METOPROLOL TARTRATE 25 MG TAB PO SCH ×3 (08:49→17:33)
[2020-12-01] MEDS: AMIODARONE 200 MG TAB PO SCH ×2 (09:43→21:24)
[2020-12-01] MEDS: FAMOTIDINE 20 MG TAB PO SCH ×2 (09:43→21:24)
[2020-12-01] MEDS: SODIUM HYPOCHLORITE, DAKIN'S 1/2 STRENGTH (0.25%) 473 ML TOPICAL SOLN TP SCH ×2 (09:44→21:24)
--- NOTE | 2020-12-01 11:26 | Progress Note ---
Assessment and Plan Assessment and Plan Imp: 1. UTI/bacteremia 2. Aspiration/MRSA pneumonia 3. Severe sepsis 4. FAZAL 5. Acute respiratory failure, hypoxia 6. Hypernatremia 7. Poor airway clearance Rec: 1. Finished ABX; monitor closely; ID following 2. Cont. Albuterol nebs plus CPT vest 3. TFs 4. Transfuse if H/H less than 7.0/21.0 5. Lovenox and Pepcid for PPx 6. CXR reviewed no significant change possible fluid overload 7. Likely would benefit from more diuresis 8. PSV trials as tolerated 9. LTAC placement pending 10. CCT 31 minutes Subjective Date of service: 12/01/20 Principal diagnosis: Acute Resp Fail, PNA, Septic Shock, Sacral Ulcer, AF with RVR Interval history: Patient awake and responsive. Could not tolerate PSV because of high respiratory rate. Back on assist control mode for last couple of days, on CPAP trial this morning on PSV of 10 so far tolerating well with out any significant shortness of breath. However respiratory rate is mid 30s. Objective Vital Signs - 12hr 11/30/20 11/30/20 11/30/20 23:25 23:30 23:34 Temperature Pulse Rate 91 H 95 H 88 Pulse Rate [ From Monitor] Respiratory 12 15 Rate Blood Pressure 123/77 135/87 135/87 O2 Sat by Pulse 98 97 Oximetry O2 Sat by Pulse Oximetry [ Assessment] 12/01/20 12/01/20 12/01/20 00:00 00:30 01:00 Temperature 98.6 F Pulse Rate 91 H 91 H 79 Pulse Rate [ 89 From Monitor] Respiratory 12 14 20 Rate Blood Pressure 123/81 126/82 132/79 O2 Sat by Pulse 96 97 95 Oximetry O2 Sat by Pulse Oximetry [ Assessment] 12/01/20 12/01/20 12/01/20 01:30 02:00 02:30 Temperature Pulse Rate 91 H 101 H 102 H Pulse Rate [ From Monitor] Respiratory 24 16 15 Rate Blood Pressure 135/79 118/80 136/84 O2 Sat by Pulse 95 83 L 96 Oximetry O2 Sat by Pulse 96 Oximetry [ Assessment] 12/01/20 12/01/20 12/01/20 03:00 03:30 04:00 Temperature 98.2 F Pulse Rate 96 H 99 H 97 H Pulse Rate [ 89 From Monitor] Respiratory 22 26 H 23 Rate Blood Pressure 134/89 113/84 127/79 O2 Sat by Pulse 97 98 98 Oximetry O2 Sat by Pulse Oximetry [ Assessment] 12/01/20 12/01/20 12/01/20 04:23 04:30 05:00 Temperature Pulse Rate 97 H 98 H 98 H Pulse Rate [ From Monitor] Respiratory 9 L 15 Rate Blood Pressure 127/79 131/83 131/83 O2 Sat by Pulse 99 97 93 Oximetry O2 Sat by Pulse Oximetry [ Assessment] 12/01/20 12/01/20 12/01/20 05:30 06:00 06:30 Temperature Pulse Rate 97 H 98 H 99 H Pulse Rate [ From Monitor] Respiratory 18 22 25 H Rate Blood Pressure 125/81 130/85 127/82 O2 Sat by Pulse 94 93 96 Oximetry O2 Sat by Pulse Oximetry [ Assessment] 12/01/20 12/01/20 12/01/20 07:00 07:30 08:00 Temperature 97.7 F Pulse Rate 86 93 H 95 H Pulse Rate [ 82 From Monitor] Respiratory 26 H 25 H 19 Rate Blood Pressure 126/80 131/90 125/85 O2 Sat by Pulse 95 94 96 Oximetry O2 Sat by Pulse Oximetry [ Assessment] 12/01/20 12/01/20 12/01/20 08:13 08:16 08:30 Temperature Pulse Rate 92 H 84 95 H Pulse Rate [ From Monitor] Respiratory 26 H Rate Blood Pressure 125/85 125/85 135/84 O2 Sat by Pulse 96 96 94 Oximetry O2 Sat by Pulse Oximetry [ Assessment] 12/01/20 12/01/20 12/01/20 08:49 09:00 09:30 Temperature Pulse Rate 91 H 93 H 97 H Pulse Rate [ From Monitor] Respiratory 32 H 26 H Rate Blood Pressure 125/85 130/78 129/88 O2 Sat by Pulse 95 94 Oximetry O2 Sat by Pulse Oximetry [ Assessment] 12/01/20 12/01/20 12/01/20 10:00 10:30 11:00 Temperature Pulse Rate 95 H 94 H 89 Pulse Rate [ From Monitor] Respiratory 33 H 32 H 33 H Rate Blood Pressure 132/78 131/87 132/83 O2 Sat by Pulse 95 95 93 Oximetry O2 Sat by Pulse Oximetry [ Assessment] Constitutional: alert, other (trach on vent) Eyes: non-icteric ENT: oropharynx moist Neck: supple Effort: normal Ascultation: Bilateral: clear, rhonchi Percussion: Bilateral: not dull Cardiovascular: regular rate and rhythm (no mrg) Gastrointestinal: normoactive bowel sounds, soft, non-tender Extremities: no cyanosis, cool, anasarca Neurologic: normal mental status, non-focal exam Psychiatric: mood appropriate, affect normal CBC and BMP: 11/30/20 05:14 11/30/20 05:14 ABG, PT/INR, D-dimer: ABG ABG pH 7.515 (7.320-7.450) H 11/28/20 03:56 POC ABG pCO2 38.5 mmHg (32.0-48.0) 11/28/20 03:56 ABG pCO2 43.4 mm Hg 11/19/20 Unknown POC ABG pO2 74.5 mmHg (83-108) L 11/28/20 03:56 ABG pO2 72.4 mm Hg (80.0-90.0) L 11/19/20 Unknown POC ABG HCO3 30.4 11/28/20 03:56 ABG O2 Saturation 95.8 (0-100) 11/28/20 03:56 PT/INR, D-dimer PT 14.7 Sec. (12.2-14.9) 11/19/20 06:36 INR 1.15 (0.87-1.13) H 11/19/20 06:36 Abnormal lab findings: Abnormal Labs 10/26/20 10/26/20 10/26/20 17:25 17:25 17:25 WBC 23.3 H RBC 3.10 L Hgb 9.6 L Hct 30.3 L MCV 98 H MCH MCHC RDW 17.4 H Plt Count 521 H Lymph % (Auto) [place] % (Auto) [place] # (Auto) Seg Neutrophils % Seg Neuts % (Manual) 78.0 H Lymphocytes % (Manual) 11.0 L Nucleated RBC % Seg Neutrophils # Seg Neutrophils # Man 18.2 H Lymphocytes # (Manual) Monocytes # (Manual) 1.4 H PT INR ABG pH POC ABG pCO2 POC ABG pO2 ABG pO2 ABG HCO3 ABG O2 Saturation ABG Base Excess ABG Hemoglobin ABG Oxyhemoglobin ABG Sodium ABG Potassium ABG Chloride ABG Glucose Oxyhemoglobin Carboxyhemoglobin Sodium 148 H Potassium Chloride 109.3 H Carbon Dioxide 19 L BUN 57 H Creatinine 1.5 H Glucose 151 H POC Glucose Lactic Acid 9.60 H* Calcium Phosphorus Magnesium Total Creatine Kinase Troponin T 0.062 H Total Protein Albumin 1.7 L Triglycerides 190 H LDL Cholesterol Direct 33 L HDL Cholesterol 18 L Arterial Blood Glucose Arterial Blood Ionized Calcium Urine pH Urine WBC (Auto) Vancomycin Trough Salicylates Acetaminophen Crossmatch 10/26/20 10/26/20 10/26/20 17:28 17:28 17:28 WBC RBC Hgb Hct MCV MCH MCHC RDW Plt Count Lymph % (Auto) [place] % (Auto) [place] # (Auto) Seg Neutrophils % Seg Neuts % (Manual) Lymphocytes % (Manual) Nucleated RBC % Seg Neutrophils # Seg Neutrophils # Man Lymphocytes # (Manual) Monocytes # (Manual) PT INR ABG pH POC ABG pCO2 POC ABG pO2 ABG pO2 ABG HCO3 ABG O2 Saturation ABG Base Excess ABG Hemoglobin ABG Oxyhemoglobin ABG Sodium ABG Potassium ABG Chloride ABG Glucose Oxyhemoglobin Carboxyhemoglobin Sodium Potassium Chloride Carbon Dioxide BUN Creatinine Glucose POC Glucose Lactic Acid Calcium Phosphorus Magnesium Total Creatine Kinase 31 L Troponin T Total Protein Albumin Triglycerides LDL Cholesterol Direct HDL Cholesterol Arterial Blood Glucose Arterial Blood Ionized Calcium Urine pH Urine WBC (Auto) Vancomycin Trough Salicylates < 0.3 L Acetaminophen 5.0 L Crossmatch 10/26/20 10/26/20 10/26/20 17:30 20:11 22:00 WBC RBC Hgb Hct MCV MCH MCHC RDW Plt Count Lymph % (Auto) [place] % (Auto) [place] # (Auto) Seg Neutrophils % Seg Neuts % (Manual) Lymphocytes % (Manual) Nucleated RBC % Seg Neutrophils # Seg Neutrophils # Man Lymphocytes # (Manual) Monocytes # (Manual) PT INR ABG pH 7.235 L POC ABG pCO2 POC ABG pO2 ABG pO2 312.4 H ABG HCO3 16.4 L ABG O2 Saturation 99.5 H ABG Base Excess -10.4 L ABG Hemoglobin 11.0 L ABG Oxyhemoglobin ABG Sodium ABG Potassium ABG Chloride ABG Glucose Oxyhemoglobin Carboxyhemoglobin Sodium Potassium Chloride Carbon Dioxide BUN Creatinine Glucose POC Glucose Lactic Acid 7.70 H* 6.40 H* Calcium Phosphorus Magnesium Total Creatine Kinase Troponin T Total Protein Albumin Triglycerides LDL Cholesterol Direct HDL Cholesterol Arterial Blood Glucose Arterial Blood Ionized Calcium Urine pH Urine WBC (Auto) Vancomycin Trough Salicylates Acetaminophen Crossmatch 10/27/20 10/27/20 10/27/20 03:25 03:30 04:00 WBC 20.3 H RBC 3.10 L Hgb 9.6 L Hct 30.6 L MCV 99 H MCH MCHC 31 L RDW 16.9 H Plt Count Lymph % (Auto) [facility] % (Auto) [place] # (Auto) Seg Neutrophils % Seg Neuts % (Manual) Lymphocytes % (Manual) Nucleated RBC % Seg Neutrophils # Seg Neutrophils # Man 11.6 H Lymphocytes # (Manual) Monocytes # (Manual) PT INR ABG pH 7.218 L POC ABG pCO2 POC ABG pO2 62.9 L ABG pO2 ABG HCO3 ABG O2 Saturation ABG Base Excess ABG Hemoglobin 10.6 L ABG Oxyhemoglobin 86.6 L ABG Sodium ABG Potassium 4.8 H ABG Chloride 114.0 H ABG Glucose 116 H Oxyhemoglobin Carboxyhemoglobin 0.4 L Sodium Potassium Chloride 110.2 H Carbon Dioxide 17 L BUN 55 H Creatinine 1.5 H Glucose 109 H POC Glucose Lactic Acid Calcium 7.9 L Phosphorus Magnesium Total Creatine Kinase Troponin T Total Protein Albumin 1.3 L Triglycerides LDL Cholesterol Direct HDL Cholesterol Arterial Blood Glucose 116 H Arterial Blood Ionized Calcium Urine pH Urine WBC (Auto) Vancomycin Trough Salicylates Acetaminophen Crossmatch 10/27/20 10/28/20 10/28/20 Unknown 00:40 00:40 WBC 23.1 H RBC 2.42 L Hgb 7.5 L Hct 23.7 L D MCV 98 H MCH MCHC RDW 16.8 H Plt Count Lymph % (Auto) [facility] % (Auto) [place] # (Auto) Seg Neutrophils % Seg Neuts % (Manual) Lymphocytes % (Manual) Nucleated RBC % Seg Neutrophils # Seg Neutrophils # Man Lymphocytes # (Manual) Monocytes # (Manual) PT INR ABG pH POC ABG pCO2 POC ABG pO2 ABG pO2 ABG HCO3 ABG O2 Saturation ABG Base Excess ABG Hemoglobin ABG Oxyhemoglobin ABG Sodium ABG Potassium ABG Chloride ABG Glucose Oxyhemoglobin Carboxyhemoglobin Sodium Potassium Chloride 111.4 H Carbon Dioxide 19 L BUN 49 H Creatinine Glucose POC Glucose Lactic Acid Calcium 7.3 L Phosphorus Magnesium 1.40 L Total Creatine Kinase Troponin T Total Protein 5.8 L Albumin 1.2 L Triglycerides LDL Cholesterol Direct HDL Cholesterol Arterial Blood Glucose Arterial Blood Ionized Calcium Urine pH 8.0 H Urine WBC (Auto) > 182.0 H Vancomycin Trough Salicylates Acetaminophen Crossmatch 10/28/20 10/28/20 10/28/20 03:30 05:36 05:36 WBC RBC Hgb Hct MCV MCH MCHC RDW Plt Count Lymph % (Auto) [facility] % (Auto) [place] # (Auto) Seg Neutrophils % Seg Neuts % (Manual) Lymphocytes % (Manual) Nucleated RBC % Seg Neutrophils # Seg Neutrophils # Man Lymphocytes # (Manual) Monocytes # (Manual) PT INR ABG pH 7.175 L POC ABG pCO2 POC ABG pO2 71.5 L ABG pO2 ABG HCO3 ABG O2 Saturation ABG Base Excess ABG Hemoglobin 8.8 L ABG Oxyhemoglobin ABG Sodium ABG Potassium 4.7 H ABG Chloride 114.0 H ABG Glucose 100 H Oxyhemoglobin Carboxyhemoglobin Sodium Potassium Chloride 114.6 H Carbon Dioxide 15 L BUN 48 H Creatinine 1.4 H Glucose POC Glucose Lactic Acid 7.60 H* Calcium 7.7 L Phosphorus Magnesium Total Creatine Kinase Troponin T Total Protein Albumin Triglycerides LDL Cholesterol Direct HDL Cholesterol Arterial Blood Glucose 100 H Arterial Blood Ionized Calcium 4.4 L Urine pH Urine WBC (Auto) Vancomycin Trough Salicylates Acetaminophen Crossmatch 10/28/20 10/28/20 10/29/20 17:18 23:18 03:50 WBC RBC Hgb Hct MCV MCH MCHC RDW Plt Count Lymph % (Auto) [facility] % (Auto) [place] # (Auto) Seg Neutrophils % Seg Neuts % (Manual) Lymphocytes % (Manual) Nucleated RBC % Seg Neutrophils # Seg Neutrophils # Man Lymphocytes # (Manual) Monocytes # (Manual) PT INR ABG pH POC ABG pCO2 30.0 L POC ABG pO2 ABG pO2 ABG HCO3 ABG O2 Saturation ABG Base Excess ABG Hemoglobin 8.1 L ABG Oxyhemoglobin ABG Sodium ABG Potassium ABG Chloride 113.0 H ABG Glucose 153 H Oxyhemoglobin Carboxyhemoglobin 0.4 L Sodium Potassium Chloride Carbon Dioxide BUN Creatinine Glucose POC Glucose 134 H 149 H Lactic Acid Calcium Phosphorus Magnesium Total Creatine Kinase Troponin T Total Protein Albumin Triglycerides LDL Cholesterol Direct HDL Cholesterol Arterial Blood Glucose 153 H Arterial Blood Ionized Calcium 4.1 L Urine pH Urine WBC (Auto) Vancomycin Trough Salicylates Acetaminophen Crossmatch 0310/29/20 10/29/20 05:09 05:15 05:15 WBC 23.9 H RBC 2.66 L Hgb 8.3 L Hct 26.3 L MCV 99 H MCH MCHC RDW 17.5 H Plt Count Lymph % (Auto) [facility] % (Auto) [place] # (Auto) Seg Neutrophils % Seg Neuts % (Manual) Lymphocytes % (Manual) Nucleated RBC % Seg Neutrophils # Seg Neutrophils # Man Lymphocytes # (Manual) Monocytes # (Manual) PT INR ABG pH POC ABG pCO2 POC ABG pO2 ABG pO2 ABG HCO3 ABG O2 Saturation ABG Base Excess ABG Hemoglobin ABG Oxyhemoglobin ABG Sodium ABG Potassium ABG Chloride ABG Glucose Oxyhemoglobin Carboxyhemoglobin Sodium Potassium Chloride 110.4 H Carbon Dioxide 15 L BUN 40 H Creatinine Glucose 140 H POC Glucose 123 H Lactic Acid Calcium 7.0 L Phosphorus Magnesium Total Creatine Kinase Troponin T Total Protein 6.0 L Albumin 1.0 L Triglycerides LDL Cholesterol Direct HDL Cholesterol Arterial Blood Glucose Arterial Blood Ionized Calcium Urine pH Urine WBC (Auto) Vancomycin Trough Salicylates Acetaminophen Crossmatch 10/29/20 10/29/20 10/29/20 05:15 10:37 11:41 WBC RBC Hgb Hct MCV MCH MCHC RDW Plt Count Lymph % (Auto) [facility] % (Auto) [place] # (Auto) Seg Neutrophils % Seg Neuts % (Manual) Lymphocytes % (Manual) Nucleated RBC % Seg Neutrophils # Seg Neutrophils # Man Lymphocytes # (Manual) Monocytes # (Manual) PT INR ABG pH POC ABG pCO2 POC ABG pO2 ABG pO2 ABG HCO3 ABG O2 Saturation ABG Base Excess ABG Hemoglobin ABG Oxyhemoglobin ABG Sodium ABG Potassium ABG Chloride ABG Glucose Oxyhemoglobin Carboxyhemoglobin Sodium Potassium Chloride Carbon Dioxide BUN Creatinine Glucose POC Glucose 121 H Lactic Acid 9.90 H* 10.90 H* Calcium Phosphorus Magnesium Total Creatine Kinase Troponin T Total Protein Albumin Triglycerides LDL Cholesterol Direct HDL Cholesterol Arterial Blood Glucose Arterial Blood Ionized Calcium Urine pH Urine WBC (Auto) Vancomycin Trough Salicylates Acetaminophen Crossmatch 10/29/20 10/29/20 10/30/20 15:56 23:24 02:26 WBC RBC Hgb Hct MCV MCH MCHC RDW Plt Count Lymph % (Auto) [facility] % (Auto) [facility] # (Auto) Seg Neutrophils % Seg Neuts % (Manual) Lymphocytes % (Manual) Nucleated RBC % Seg Neutrophils # Seg Neutrophils # Man Lymphocytes # (Manual) Monocytes # (Manual) PT INR ABG pH POC ABG pCO2 POC ABG pO2 76.6 L ABG pO2 ABG HCO3 ABG O2 Saturation ABG Base Excess ABG Hemoglobin 6.4 L ABG Oxyhemoglobin 93.8 L ABG Sodium ABG Potassium 2.9 L ABG Chloride 110.0 H ABG Glucose 212 H Oxyhemoglobin Carboxyhemoglobin Sodium Potassium Chloride Carbon Dioxide BUN Creatinine Glucose POC Glucose 132 H 175 H Lactic Acid Calcium Phosphorus Magnesium Total Creatine Kinase Troponin T Total Protein Albumin Triglycerides LDL Cholesterol Direct HDL Cholesterol Arterial Blood Glucose 212 H Arterial Blood Ionized Calcium 3.9 L Urine pH Urine WBC (Auto) Vancomycin Trough Salicylates Acetaminophen Crossmatch 10/30/20 10/30/20 10/30/20 04:54 04:54 05:14 WBC 20.7 H RBC 2.28 L Hgb 7.0 L Hct 21.9 L MCV 96 H MCH MCHC RDW 17.0 H Plt Count 90 L Lymph % (Auto) [facility] % (Auto) [facility] # (Auto) Seg Neutrophils % Seg Neuts % (Manual) Lymphocytes % (Manual) Nucleated RBC % Seg Neutrophils # Seg Neutrophils # Man Lymphocytes # (Manual) Monocytes # (Manual) PT INR ABG pH POC ABG pCO2 POC ABG pO2 ABG pO2 ABG HCO3 ABG O2 Saturation ABG Base Excess ABG Hemoglobin ABG Oxyhemoglobin ABG Sodium ABG Potassium ABG Chloride ABG Glucose Oxyhemoglobin Carboxyhemoglobin Sodium Potassium 3.0 L D Chloride Carbon Dioxide BUN 28 H Creatinine 0.6 L Glucose 214 H POC Glucose 187 H Lactic Acid Calcium 6.2 L Phosphorus Magnesium Total Creatine Kinase Troponin T Total Protein Albumin Triglycerides LDL Cholesterol Direct HDL Cholesterol Arterial Blood Glucose Arterial Blood Ionized Calcium Urine pH Urine WBC (Auto) Vancomycin Trough Salicylates Acetaminophen Crossmatch 10/30/20 10/30/20 10/30/20 09:30 11:40 17:51 WBC RBC Hgb Hct MCV MCH MCHC RDW Plt Count Lymph % (Auto) [facility] % (Auto) [facility] # (Auto) Seg Neutrophils % Seg Neuts % (Manual) Lymphocytes % (Manual) Nucleated RBC % Seg Neutrophils # Seg Neutrophils # Man Lymphocytes # (Manual) Monocytes # (Manual) PT INR ABG pH POC ABG pCO2 POC ABG pO2 ABG pO2 ABG HCO3 ABG O2 Saturation ABG Base Excess ABG Hemoglobin ABG Oxyhemoglobin ABG Sodium ABG Potassium ABG Chloride ABG Glucose Oxyhemoglobin Carboxyhemoglobin Sodium Potassium Chloride Carbon Dioxide BUN Creatinine Glucose POC Glucose 183 H 136 H Lactic Acid Calcium Phosphorus Magnesium Total Creatine Kinase Troponin T Total Protein Albumin Triglycerides LDL Cholesterol Direct HDL Cholesterol Arterial Blood Glucose Arterial Blood Ionized Calcium Urine pH Urine WBC (Auto) Vancomycin Trough Salicylates Acetaminophen Crossmatch See Detail 10/30/20 10/30/20 10/30/20 18:53 23:25 Unknown WBC RBC Hgb Hct MCV MCH MCHC RDW Plt Count Lymph % (Auto) [facility] % (Auto) [facility] # (Auto) Seg Neutrophils % Seg Neuts % (Manual) Lymphocytes % (Manual) Nucleated RBC % Seg Neutrophils # Seg Neutrophils # Man Lymphocytes # (Manual) Monocytes # (Manual) PT INR ABG pH POC ABG pCO2 POC ABG pO2 ABG pO2 ABG HCO3 ABG O2 Saturation ABG Base Excess ABG Hemoglobin ABG Oxyhemoglobin ABG Sodium ABG Potassium ABG Chloride ABG Glucose Oxyhemoglobin Carboxyhemoglobin Sodium Potassium Chloride Carbon Dioxide BUN Creatinine Glucose POC Glucose 130 H Lactic Acid Calcium Phosphorus Magnesium Total Creatine Kinase Troponin T Total Protein Albumin Triglycerides LDL Cholesterol Direct HDL Cholesterol Arterial Blood Glucose Arterial Blood Ionized Calcium Urine pH Urine WBC (Auto) Vancomycin Trough 21.4 H 22.0 H Salicylates Acetaminophen Crossmatch 10/30/20 10/31/20 10/31/20 Unknown 02:54 03:42 WBC 21.1 H 23.0 H RBC 2.36 L Hgb 7.3 L 11.4 L D Hct 22.7 L 34.1 L D MCV 96 H MCH MCHC RDW 17.1 H 16.2 H Plt Count 73 L 33 L Lymph % (Auto) [facility] % (Auto) [facility] # (Auto) Seg Neutrophils % Seg Neuts % (Manual) Lymphocytes % (Manual) Nucleated RBC % Seg Neutrophils # Seg Neutrophils # Man Lymphocytes # (Manual) Monocytes # (Manual) PT INR ABG pH 7.517 H POC ABG pCO2 25.7 L POC ABG pO2 52.3 L ABG pO2 ABG HCO3 ABG O2 Saturation ABG Base Excess ABG Hemoglobin ABG Oxyhemoglobin 90.8 L ABG Sodium ABG Potassium ABG Chloride 109.0 H ABG Glucose 147 H Oxyhemoglobin Carboxyhemoglobin Sodium Potassium Chloride Carbon Dioxide BUN Creatinine Glucose POC Glucose Lactic Acid Calcium Phosphorus Magnesium Total Creatine Kinase Troponin T Total Protein Albumin Triglycerides LDL Cholesterol Direct HDL Cholesterol Arterial Blood Glucose 147 H Arterial Blood Ionized Calcium 4.0 L Urine pH Urine WBC (Auto) Vancomycin Trough Salicylates Acetaminophen Crossmatch 10/31/20 10/31/20 10/31/20 04:37 04:37 05:08 WBC 21.7 H RBC Hgb Hct MCV MCH MCHC RDW 16.1 H Plt Count 39 L Lymph % (Auto) [facility] % (Auto) [facility] # (Auto) Seg Neutrophils % Seg Neuts % (Manual) Lymphocytes % (Manual) Nucleated RBC % Seg Neutrophils # Seg Neutrophils # Man Lymphocytes # (Manual) Monocytes # (Manual) PT INR ABG pH POC ABG pCO2 POC ABG pO2 ABG pO2 ABG HCO3 ABG O2 Saturation ABG Base Excess ABG Hemoglobin ABG Oxyhemoglobin ABG Sodium ABG Potassium ABG Chloride ABG Glucose Oxyhemoglobin Carboxyhemoglobin Sodium Potassium Chloride 108.4 H Carbon Dioxide BUN 25 H Creatinine 0.5 L Glucose 140 H POC Glucose 140 H Lactic Acid Calcium 6.1 L Phosphorus Magnesium 1.50 L Total Creatine Kinase Troponin T Total Protein Albumin Triglycerides LDL Cholesterol Direct HDL Cholesterol Arterial Blood Glucose Arterial Blood Ionized Calcium Urine pH Urine WBC (Auto) Vancomycin Trough Salicylates Acetaminophen Crossmatch 10/31/20 10/31/20 10/31/20 11:12 18:50 23:21 WBC RBC Hgb Hct MCV MCH MCHC RDW Plt Count Lymph % (Auto) [facility] % (Auto) [facility] # (Auto) Seg Neutrophils % Seg Neuts % (Manual) Lymphocytes % (Manual) Nucleated RBC % Seg Neutrophils # Seg Neutrophils # Man Lymphocytes # (Manual) Monocytes # (Manual) PT INR ABG pH POC ABG pCO2 POC ABG pO2 ABG pO2 ABG HCO3 ABG O2 Saturation ABG Base Excess ABG Hemoglobin ABG Oxyhemoglobin ABG Sodium ABG Potassium ABG Chloride ABG Glucose Oxyhemoglobin Carboxyhemoglobin Sodium Potassium Chloride Carbon Dioxide BUN Creatinine Glucose POC Glucose 125 H 142 H 127 H Lactic Acid Calcium Phosphorus Magnesium Total Creatine Kinase Troponin T Total Protein Albumin Triglycerides LDL Cholesterol Direct HDL Cholesterol Arterial Blood Glucose Arterial Blood Ionized Calcium Urine pH Urine WBC (Auto) Vancomycin Trough Salicylates Acetaminophen Crossmatch 10/31/20 11/01/20 11/01/20 Unknown 03:40 04:21 WBC RBC Hgb Hct MCV MCH MCHC RDW Plt Count Lymph % (Auto) [facility] % (Auto) [facility] # (Auto) Seg Neutrophils % Seg Neuts % (Manual) Lymphocytes % (Manual) Nucleated RBC % Seg Neutrophils # Seg Neutrophils # Man Lymphocytes # (Manual) Monocytes # (Manual) PT INR ABG pH 7.489 H POC ABG pCO2 POC ABG pO2 ABG pO2 77.2 L ABG HCO3 ABG O2 Saturation ABG Base Excess ABG Hemoglobin 7.1 L ABG Oxyhemoglobin ABG Sodium ABG Potassium ABG Chloride ABG Glucose Oxyhemoglobin Carboxyhemoglobin Sodium Potassium 3.1 L Chloride 107.1 H Carbon Dioxide BUN 25 H Creatinine 0.5 L Glucose 148 H POC Glucose Lactic Acid 4.30 H* Calcium 6.0 L Phosphorus Magnesium Total Creatine Kinase Troponin T Total Protein Albumin Triglycerides LDL Cholesterol Direct HDL Cholesterol Arterial Blood Glucose Arterial Blood Ionized Calcium Urine pH Urine WBC (Auto) Vancomycin Trough Salicylates Acetaminophen Crossmatch 11/01/20 11/01/20 11/01/20 05:13 11:42 17:38 WBC RBC Hgb Hct MCV MCH MCHC RDW Plt Count Lymph % (Auto) [facility] % (Auto) [facility] # (Auto) Seg Neutrophils % Seg Neuts % (Manual) Lymphocytes % (Manual) Nucleated RBC % Seg Neutrophils # Seg Neutrophils # Man Lymphocytes # (Manual) Monocytes # (Manual) PT INR ABG pH POC ABG pCO2 POC ABG pO2 ABG pO2 ABG HCO3 ABG O2 Saturation ABG Base Excess ABG Hemoglobin ABG Oxyhemoglobin ABG Sodium ABG Potassium ABG Chloride ABG Glucose Oxyhemoglobin Carboxyhemoglobin Sodium Potassium Chloride Carbon Dioxide BUN Creatinine Glucose POC Glucose 139 H 139 H 161 H Lactic Acid Calcium Phosphorus Magnesium Total Creatine Kinase Troponin T Total Protein Albumin Triglycerides LDL Cholesterol Direct HDL Cholesterol Arterial Blood Glucose Arterial Blood Ionized Calcium Urine pH Urine WBC (Auto) Vancomycin Trough Salicylates Acetaminophen Crossmatch 11/01/20 11/01/20 11/02/20 23:20 Unknown 04:30 WBC 18.2 H RBC 3.27 L Hgb 9.9 L Hct 30.1 L D MCV MCH MCHC RDW 15.7 H Plt Count 34 L Lymph % (Auto) [facility] % (Auto) [facility] # (Auto) Seg Neutrophils % Seg Neuts % (Manual) Lymphocytes % (Manual) Nucleated RBC % Seg Neutrophils # Seg Neutrophils # Man Lymphocytes # (Manual) Monocytes # (Manual) PT INR ABG pH 7.456 H POC ABG pCO2 POC ABG pO2 ABG pO2 ABG HCO3 ABG O2 Saturation ABG Base Excess ABG Hemoglobin 9.2 L ABG Oxyhemoglobin ABG Sodium ABG Potassium ABG Chloride ABG Glucose Oxyhemoglobin Carboxyhemoglobin Sodium Potassium Chloride Carbon Dioxide BUN Creatinine Glucose POC Glucose 168 H Lactic Acid Calcium Phosphorus Magnesium Total Creatine Kinase Troponin T Total Protein Albumin Triglycerides LDL Cholesterol Direct HDL Cholesterol Arterial Blood Glucose Arterial Blood Ionized Calcium Urine pH Urine WBC (Auto) Vancomycin Trough Salicylates Acetaminophen Crossmatch 11/02/20 11/02/20 11/02/20 06:29 08:40 08:40 WBC 16.6 H RBC 2.87 L Hgb 8.8 L Hct 26.6 L MCV MCH MCHC RDW 15.8 H Plt Count 30 L Lymph % (Auto) [facility] % (Auto) [facility] # (Auto) Seg Neutrophils % Seg Neuts % (Manual) 97.0 H Lymphocytes % (Manual) 2.0 L Nucleated RBC % 1.0 H Seg Neutrophils # Seg Neutrophils # Man 16.1 H Lymphocytes # (Manual) 0.3 L Monocytes # (Manual) PT INR ABG pH POC ABG pCO2 POC ABG pO2 ABG pO2 ABG HCO3 ABG O2 Saturation ABG Base Excess ABG Hemoglobin ABG Oxyhemoglobin ABG Sodium ABG Potassium ABG Chloride ABG Glucose Oxyhemoglobin Carboxyhemoglobin Sodium Potassium 2.4 L* D Chloride 110.2 H Carbon Dioxide BUN 23 H Creatinine 0.4 L Glucose 154 H POC Glucose 131 H Lactic Acid Calcium 6.1 L Phosphorus Magnesium 1.50 L Total Creatine Kinase Troponin T Total Protein Albumin Triglycerides LDL Cholesterol Direct HDL Cholesterol Arterial Blood Glucose Arterial Blood Ionized Calcium Urine pH Urine WBC (Auto) Vancomycin Trough Salicylates Acetaminophen Crossmatch 11/02/20 11/02/20 11/02/20 13:17 17:25 18:05 WBC RBC Hgb Hct MCV MCH MCHC RDW Plt Count Lymph % (Auto) [facility] % (Auto) [facility] # (Auto) Seg Neutrophils % Seg Neuts % (Manual) Lymphocytes % (Manual) Nucleated RBC % Seg Neutrophils # Seg Neutrophils # Man Lymphocytes # (Manual) Monocytes # (Manual) PT INR ABG pH POC ABG pCO2 POC ABG pO2 ABG pO2 ABG HCO3 ABG O2 Saturation ABG Base Excess ABG Hemoglobin ABG Oxyhemoglobin ABG Sodium ABG Potassium ABG Chloride ABG Glucose Oxyhemoglobin Carboxyhemoglobin Sodium Potassium 3.1 L D Chloride Carbon Dioxide BUN Creatinine Glucose POC Glucose 134 H 140 H Lactic Acid Calcium Phosphorus Magnesium Total Creatine Kinase Troponin T Total Protein Albumin Triglycerides LDL Cholesterol Direct HDL Cholesterol Arterial Blood Glucose Arterial Blood Ionized Calcium Urine pH Urine WBC (Auto) Vancomycin Trough Salicylates Acetaminophen Crossmatch 11/02/20 11/03/20 11/03/20 23:36 04:15 05:07 WBC RBC Hgb Hct MCV MCH MCHC RDW Plt Count Lymph % (Auto) [place] % (Auto) [place] # (Auto) Seg Neutrophils % Seg Neuts % (Manual) Lymphocytes % (Manual) Nucleated RBC % Seg Neutrophils # Seg Neutrophils # Man Lymphocytes # (Manual) Monocytes # (Manual) PT INR ABG pH POC ABG pCO2 POC ABG pO2 ABG pO2 ABG HCO3 ABG O2 Saturation ABG Base Excess ABG Hemoglobin ABG Oxyhemoglobin ABG Sodium ABG Potassium ABG Chloride ABG Glucose Oxyhemoglobin Carboxyhemoglobin Sodium Potassium 3.0 L Chloride 111.8 H Carbon Dioxide BUN 24 H Creatinine 0.3 L Glucose 141 H POC Glucose 127 H 156 H Lactic Acid Calcium 5.8 L* Phosphorus Magnesium 1.60 L Total Creatine Kinase Troponin T Total Protein Albumin Triglycerides LDL Cholesterol Direct HDL Cholesterol Arterial Blood Glucose Arterial Blood Ionized Calcium Urine pH Urine WBC (Auto) Vancomycin Trough Salicylates Acetaminophen Crossmatch 11/03/20 11/03/20 11/04/20 11:14 17:31 00:17 WBC RBC Hgb Hct MCV MCH MCHC RDW Plt Count Lymph % (Auto) [place] % (Auto) [place] # (Auto) Seg Neutrophils % Seg Neuts % (Manual) Lymphocytes % (Manual) Nucleated RBC % Seg Neutrophils # Seg Neutrophils # Man Lymphocytes # (Manual) Monocytes # (Manual) PT INR ABG pH POC ABG pCO2 POC ABG pO2 ABG pO2 ABG HCO3 ABG O2 Saturation ABG Base Excess ABG Hemoglobin ABG Oxyhemoglobin ABG Sodium ABG Potassium ABG Chloride ABG Glucose Oxyhemoglobin Carboxyhemoglobin Sodium Potassium Chloride Carbon Dioxide BUN Creatinine Glucose POC Glucose 137 H 151 H 156 H Lactic Acid Calcium Phosphorus Magnesium Total Creatine Kinase Troponin T Total Protein Albumin Triglycerides LDL Cholesterol Direct HDL Cholesterol Arterial Blood Glucose Arterial Blood Ionized Calcium Urine pH Urine WBC (Auto) Vancomycin Trough Salicylates Acetaminophen Crossmatch 11/04/20 11/04/20 11/04/20 05:34 05:34 11:16 WBC 21.9 H RBC 2.67 L Hgb 8.2 L Hct 24.8 L MCV MCH MCHC RDW 15.6 H Plt Count 48 L Lymph % (Auto) [place] % (Auto) [place] # (Auto) Seg Neutrophils % Seg Neuts % (Manual) Lymphocytes % (Manual) Nucleated RBC % Seg Neutrophils # Seg Neutrophils # Man Lymphocytes # (Manual) Monocytes # (Manual) PT INR ABG pH POC ABG pCO2 POC ABG pO2 ABG pO2 ABG HCO3 ABG O2 Saturation ABG Base Excess ABG Hemoglobin ABG Oxyhemoglobin ABG Sodium ABG Potassium ABG Chloride ABG Glucose Oxyhemoglobin Carboxyhemoglobin Sodium 146 H Potassium Chloride 114.6 H Carbon Dioxide BUN 29 H Creatinine 0.3 L Glucose 173 H POC Glucose 156 H Lactic Acid Calcium 5.7 L* Phosphorus Magnesium Total Creatine Kinase Troponin T Total Protein Albumin Triglycerides LDL Cholesterol Direct HDL Cholesterol Arterial Blood Glucose Arterial Blood Ionized Calcium Urine pH Urine WBC (Auto) Vancomycin Trough Salicylates Acetaminophen Crossmatch 11/04/20 11/04/20 11/04/20 11:42 17:18 23:12 WBC RBC Hgb Hct MCV MCH MCHC RDW Plt Count Lymph % (Auto) [facility] % (Auto) [place] # (Auto) Seg Neutrophils % Seg Neuts % (Manual) Lymphocytes % (Manual) Nucleated RBC % Seg Neutrophils # Seg Neutrophils # Man Lymphocytes # (Manual) Monocytes # (Manual) PT INR ABG pH 7.525 H POC ABG pCO2 28.9 L POC ABG pO2 64.3 L ABG pO2 ABG HCO3 ABG O2 Saturation ABG Base Excess ABG Hemoglobin 8.2 L ABG Oxyhemoglobin ABG Sodium ABG Potassium 3.3 L ABG Chloride 115.0 H ABG Glucose 165 H Oxyhemoglobin Carboxyhemoglobin Sodium Potassium Chloride Carbon Dioxide BUN Creatinine Glucose POC Glucose 144 H 155 H Lactic Acid Calcium Phosphorus Magnesium Total Creatine Kinase Troponin T Total Protein Albumin Triglycerides LDL Cholesterol Direct HDL Cholesterol Arterial Blood Glucose 165 H Arterial Blood Ionized Calcium 4.0 L Urine pH Urine WBC (Auto) Vancomycin Trough Salicylates Acetaminophen Crossmatch 11/05/20 11/05/20 11/05/20 04:48 04:48 05:57 WBC 17.4 H RBC 2.49 L Hgb 7.8 L Hct 23.5 L MCV MCH MCHC RDW 16.0 H Plt Count 69 L Lymph % (Auto) [facility] % (Auto) [place] # (Auto) Seg Neutrophils % Seg Neuts % (Manual) Lymphocytes % (Manual) Nucleated RBC % Seg Neutrophils # Seg Neutrophils # Man Lymphocytes # (Manual) Monocytes # (Manual) PT INR ABG pH POC ABG pCO2 POC ABG pO2 ABG pO2 ABG HCO3 ABG O2 Saturation ABG Base Excess ABG Hemoglobin ABG Oxyhemoglobin ABG Sodium ABG Potassium ABG Chloride ABG Glucose Oxyhemoglobin Carboxyhemoglobin Sodium 147 H Potassium 3.5 L Chloride 115.4 H Carbon Dioxide BUN 34 H Creatinine 0.3 L Glucose 154 H POC Glucose 146 H Lactic Acid Calcium 6.1 L Phosphorus 2.00 L Magnesium Total Creatine Kinase Troponin T Total Protein Albumin Triglycerides LDL Cholesterol Direct HDL Cholesterol Arterial Blood Glucose Arterial Blood Ionized Calcium Urine pH Urine WBC (Auto) Vancomycin Trough Salicylates Acetaminophen Crossmatch 11/05/20 11/05/20 11/05/20 11:33 17:52 23:37 WBC RBC Hgb Hct MCV MCH MCHC RDW Plt Count Lymph % (Auto) [facility] % (Auto) [place] # (Auto) Seg Neutrophils % Seg Neuts % (Manual) Lymphocytes % (Manual) Nucleated RBC % Seg Neutrophils # Seg Neutrophils # Man Lymphocytes # (Manual) Monocytes # (Manual) PT INR ABG pH POC ABG pCO2 POC ABG pO2 ABG pO2 ABG HCO3 ABG O2 Saturation ABG Base Excess ABG Hemoglobin ABG Oxyhemoglobin ABG Sodium ABG Potassium ABG Chloride ABG Glucose Oxyhemoglobin Carboxyhemoglobin Sodium Potassium Chloride Carbon Dioxide BUN Creatinine Glucose POC Glucose 144 H 136 H 151 H Lactic Acid Calcium Phosphorus Magnesium Total Creatine Kinase Troponin T Total Protein Albumin Triglycerides LDL Cholesterol Direct HDL Cholesterol Arterial Blood Glucose Arterial Blood Ionized Calcium Urine pH Urine WBC (Auto) Vancomycin Trough Salicylates Acetaminophen Crossmatch 11/06/20 11/06/20 11/06/20 05:36 06:45 06:45 WBC 15.0 H RBC 2.33 L Hgb 7.2 L Hct 22.1 L MCV 95 H MCH MCHC RDW 16.2 H Plt Count 103 L Lymph % (Auto) [facility] % (Auto) [place] # (Auto) Seg Neutrophils % Seg Neuts % (Manual) Lymphocytes % (Manual) Nucleated RBC % Seg Neutrophils # Seg Neutrophils # Man Lymphocytes # (Manual) Monocytes # (Manual) PT INR ABG pH POC ABG pCO2 POC ABG pO2 ABG pO2 ABG HCO3 ABG O2 Saturation ABG Base Excess ABG Hemoglobin ABG Oxyhemoglobin ABG Sodium ABG Potassium ABG Chloride ABG Glucose Oxyhemoglobin Carboxyhemoglobin Sodium 148 H Potassium Chloride 118.2 H Carbon Dioxide BUN 32 H Creatinine 0.4 L Glucose 153 H POC Glucose 140 H Lactic Acid Calcium 6.4 L Phosphorus 0.90 L* D Magnesium Total Creatine Kinase Troponin T Total Protein 5.0 L Albumin 1.4 L Triglycerides LDL Cholesterol Direct HDL Cholesterol Arterial Blood Glucose Arterial Blood Ionized Calcium Urine pH Urine WBC (Auto) Vancomycin Trough Salicylates Acetaminophen Crossmatch 11/06/20 11/06/20 11/06/20 11:32 17:37 23:19 WBC RBC Hgb Hct MCV MCH MCHC RDW Plt Count Lymph % (Auto) [facility] % (Auto) [place] # (Auto) Seg Neutrophils % Seg Neuts % (Manual) Lymphocytes % (Manual) Nucleated RBC % Seg Neutrophils # Seg Neutrophils # Man Lymphocytes # (Manual) Monocytes # (Manual) PT INR ABG pH POC ABG pCO2 POC ABG pO2 ABG pO2 ABG HCO3 ABG O2 Saturation ABG Base Excess ABG Hemoglobin ABG Oxyhemoglobin ABG Sodium ABG Potassium ABG Chloride ABG Glucose Oxyhemoglobin Carboxyhemoglobin Sodium Potassium Chloride Carbon Dioxide BUN Creatinine Glucose POC Glucose 132 H 133 H 145 H Lactic Acid Calcium Phosphorus Magnesium Total Creatine Kinase Troponin T Total Protein Albumin Triglycerides LDL Cholesterol Direct HDL Cholesterol Arterial Blood Glucose Arterial Blood Ionized Calcium Urine pH Urine WBC (Auto) Vancomycin Trough Salicylates Acetaminophen Crossmatch 11/07/20 11/07/20 11/07/20 12:55 16:45 16:45 WBC 12.0 H RBC 3.63 L Hgb 11.4 L D Hct MCV 104 H MCH MCHC 30 L RDW 18.0 H Plt Count 133 L Lymph % (Auto) [facility] % (Auto) [place] # (Auto) Seg Neutrophils % Seg Neuts % (Manual) Lymphocytes % (Manual) Nucleated RBC % Seg Neutrophils # Seg Neutrophils # Man Lymphocytes # (Manual) Monocytes # (Manual) PT INR ABG pH POC ABG pCO2 POC ABG pO2 ABG pO2 ABG HCO3 ABG O2 Saturation ABG Base Excess ABG Hemoglobin 7.7 L ABG Oxyhemoglobin ABG Sodium ABG Potassium ABG Chloride ABG Glucose Oxyhemoglobin 94.9 L Carboxyhemoglobin Sodium 149 H Potassium Chloride 119.8 H Carbon Dioxide BUN 31 H Creatinine 0.4 L Glucose 130 H POC Glucose Lactic Acid Calcium 6.5 L Phosphorus Magnesium Total Creatine Kinase Troponin T Total Protein Albumin Triglycerides LDL Cholesterol Direct HDL Cholesterol Arterial Blood Glucose Arterial Blood Ionized Calcium Urine pH Urine WBC (Auto) Vancomycin Trough Salicylates Acetaminophen Crossmatch 11/07/20 11/08/20 11/08/20 17:23 00:12 06:11 WBC RBC Hgb Hct MCV MCH MCHC RDW Plt Count Lymph % (Auto) [facility] % (Auto) [place] # (Auto) Seg Neutrophils % Seg Neuts % (Manual) Lymphocytes % (Manual) Nucleated RBC % Seg Neutrophils # Seg Neutrophils # Man Lymphocytes # (Manual) Monocytes # (Manual) PT INR ABG pH POC ABG pCO2 POC ABG pO2 ABG pO2 ABG HCO3 ABG O2 Saturation ABG Base Excess ABG Hemoglobin ABG Oxyhemoglobin ABG Sodium ABG Potassium ABG Chloride ABG Glucose Oxyhemoglobin Carboxyhemoglobin Sodium Potassium Chloride Carbon Dioxide BUN Creatinine Glucose POC Glucose 115 H 129 H 109 H Lactic Acid Calcium Phosphorus Magnesium Total Creatine Kinase Troponin T Total Protein Albumin Triglycerides LDL Cholesterol Direct HDL Cholesterol Arterial Blood Glucose Arterial Blood Ionized Calcium Urine pH Urine WBC (Auto) Vancomycin Trough Salicylates Acetaminophen Crossmatch 11/08/20 11/08/20 11/08/20 17:36 23:49 23:58 WBC RBC Hgb Hct MCV MCH MCHC RDW Plt Count Lymph % (Auto) [facility] % (Auto) [place] # (Auto) Seg Neutrophils % Seg Neuts % (Manual) Lymphocytes % (Manual) Nucleated RBC % Seg Neutrophils # Seg Neutrophils # Man Lymphocytes # (Manual) Monocytes # (Manual) PT INR ABG pH POC ABG pCO2 POC ABG pO2 ABG pO2 ABG HCO3 ABG O2 Saturation ABG Base Excess ABG Hemoglobin ABG Oxyhemoglobin ABG Sodium ABG Potassium ABG Chloride ABG Glucose Oxyhemoglobin Carboxyhemoglobin Sodium Potassium Chloride Carbon Dioxide BUN Creatinine Glucose 138 H POC Glucose 38 L 36 L Lactic Acid Calcium Phosphorus Magnesium Total Creatine Kinase Troponin T Total Protein Albumin Triglycerides LDL Cholesterol Direct HDL Cholesterol Arterial Blood Glucose Arterial Blood Ionized Calcium Urine pH Urine WBC (Auto) Vancomycin Trough Salicylates Acetaminophen Crossmatch 11/09/20 11/09/20 11/09/20 05:33 06:00 06:00 WBC 13.1 H RBC 2.35 L Hgb 7.6 L D Hct 22.9 L D MCV 97 H MCH MCHC RDW 16.8 H Plt Count Lymph % (Auto) 9.[address] % (Auto) [place] # (Auto) Seg Neutrophils % 84.8 H Seg Neuts % (Manual) Lymphocytes % (Manual) Nucleated RBC % Seg Neutrophils # 11.1 H Seg Neutrophils # Man Lymphocytes # (Manual) Monocytes # (Manual) PT INR ABG pH POC ABG pCO2 POC ABG pO2 ABG pO2 ABG HCO3 ABG O2 Saturation ABG Base Excess ABG Hemoglobin ABG Oxyhemoglobin ABG Sodium ABG Potassium ABG Chloride ABG Glucose Oxyhemoglobin Carboxyhemoglobin Sodium 150 H Potassium 3.4 L D Chloride 119.2 H Carbon Dioxide BUN 30 H Creatinine 0.4 L Glucose 137 H POC Glucose 58 L Lactic Acid Calcium 7.2 L Phosphorus Magnesium Total Creatine Kinase Troponin T Total Protein Albumin Triglycerides LDL Cholesterol Direct HDL Cholesterol Arterial Blood Glucose Arterial Blood Ionized Calcium Urine pH Urine WBC (Auto) Vancomycin Trough Salicylates Acetaminophen Crossmatch 11/09/20 11/09/20 11/10/20 06:08 22:16 13:46 WBC 16.1 H RBC 2.52 L Hgb 8.1 L Hct 25.2 L MCV 100 H MCH MCHC RDW 18.2 H Plt Count Lymph % (Auto) [facility] % (Auto) [place] # (Auto) Seg Neutrophils % Seg Neuts % (Manual) 90.0 H Lymphocytes % (Manual) 3.0 L Nucleated RBC % Seg Neutrophils # Seg Neutrophils # Man 14.5 H Lymphocytes # (Manual) 0.5 L Monocytes # (Manual) 1.1 H PT INR ABG pH POC ABG pCO2 POC ABG pO2 ABG pO2 ABG HCO3 ABG O2 Saturation ABG Base Excess ABG Hemoglobin ABG Oxyhemoglobin ABG Sodium ABG Potassium ABG Chloride ABG Glucose Oxyhemoglobin Carboxyhemoglobin Sodium Potassium Chloride Carbon Dioxide BUN Creatinine Glucose POC Glucose 122 H 120 H Lactic Acid Calcium Phosphorus Magnesium Total Creatine Kinase Troponin T Total Protein Albumin Triglycerides LDL Cholesterol Direct HDL Cholesterol Arterial Blood Glucose Arterial Blood Ionized Calcium Urine pH Urine WBC (Auto) Vancomycin Trough Salicylates Acetaminophen Crossmatch 11/10/20 11/10/20 11/11/20 13:46 15:59 11:43 WBC RBC Hgb Hct MCV MCH MCHC RDW Plt Count Lymph % (Auto) [facility] % (Auto) [facility] # (Auto) Seg Neutrophils % Seg Neuts % (Manual) Lymphocytes % (Manual) Nucleated RBC % Seg Neutrophils # Seg Neutrophils # Man Lymphocytes # (Manual) Monocytes # (Manual) PT INR ABG pH POC ABG pCO2 POC ABG pO2 ABG pO2 ABG HCO3 ABG O2 Saturation ABG Base Excess ABG Hemoglobin ABG Oxyhemoglobin ABG Sodium ABG Potassium ABG Chloride ABG Glucose Oxyhemoglobin Carboxyhemoglobin Sodium 153 H Potassium Chloride 120.6 H Carbon Dioxide BUN 27 H Creatinine 0.3 L Glucose 112 H POC Glucose 40 L 124 H Lactic Acid Calcium 6.8 L Phosphorus Magnesium Total Creatine Kinase Troponin T Total Protein Albumin Triglycerides LDL Cholesterol Direct HDL Cholesterol Arterial Blood Glucose Arterial Blood Ionized Calcium Urine pH Urine WBC (Auto) Vancomycin Trough Salicylates Acetaminophen Crossmatch 11/11/20 11/11/20 11/11/20 14:38 14:38 14:38 WBC 13.8 H RBC 2.43 L Hgb 7.6 L Hct 24.0 L MCV 99 H MCH MCHC RDW 18.0 H Plt Count Lymph % (Auto) [facility] % (Auto) [facility] # (Auto) Seg Neutrophils % Seg Neuts % (Manual) Lymphocytes % (Manual) Nucleated RBC % Seg Neutrophils # Seg Neutrophils # Man Lymphocytes # (Manual) Monocytes # (Manual) PT 15.0 H INR 1.18 H ABG pH POC ABG pCO2 POC ABG pO2 ABG pO2 ABG HCO3 ABG O2 Saturation ABG Base Excess ABG Hemoglobin ABG Oxyhemoglobin ABG Sodium ABG Potassium ABG Chloride ABG Glucose Oxyhemoglobin Carboxyhemoglobin Sodium 154 H Potassium 3.1 L D Chloride 122.1 H Carbon Dioxide BUN 26 H Creatinine 0.4 L Glucose 140 H POC Glucose Lactic Acid Calcium 7.3 L Phosphorus Magnesium Total Creatine Kinase Troponin T Total Protein Albumin Triglycerides LDL Cholesterol Direct HDL Cholesterol Arterial Blood Glucose Arterial Blood Ionized Calcium Urine pH Urine WBC (Auto) Vancomycin Trough Salicylates Acetaminophen Crossmatch 11/11/20 11/11/20 11/12/20 18:39 18:42 00:03 WBC RBC Hgb Hct MCV MCH MCHC RDW Plt Count Lymph % (Auto) [facility] % (Auto) [facility] # (Auto) Seg Neutrophils % Seg Neuts % (Manual) Lymphocytes % (Manual) Nucleated RBC % Seg Neutrophils # Seg Neutrophils # Man Lymphocytes # (Manual) Monocytes # (Manual) PT INR ABG pH POC ABG pCO2 POC ABG pO2 ABG pO2 ABG HCO3 ABG O2 Saturation ABG Base Excess ABG Hemoglobin ABG Oxyhemoglobin ABG Sodium ABG Potassium ABG Chloride ABG Glucose Oxyhemoglobin Carboxyhemoglobin Sodium Potassium Chloride Carbon Dioxide BUN Creatinine Glucose POC Glucose 45 L 66 L 108 H Lactic Acid Calcium Phosphorus Magnesium Total Creatine Kinase Troponin T Total Protein Albumin Triglycerides LDL Cholesterol Direct HDL Cholesterol Arterial Blood Glucose Arterial Blood Ionized Calcium Urine pH Urine WBC (Auto) Vancomycin Trough Salicylates Acetaminophen Crossmatch 11/12/20 11/12/20 11/12/20 05:44 08:33 08:33 WBC 13.4 H RBC 2.35 L Hgb 7.5 L Hct 23.7 L MCV 101 H MCH MCHC RDW 19.7 H Plt Count Lymph % (Auto) [facility] % (Auto) [place] # (Auto) Seg Neutrophils % Seg Neuts % (Manual) Lymphocytes % (Manual) Nucleated RBC % Seg Neutrophils # Seg Neutrophils # Man Lymphocytes # (Manual) Monocytes # (Manual) PT INR ABG pH POC ABG pCO2 POC ABG pO2 ABG pO2 ABG HCO3 ABG O2 Saturation ABG Base Excess ABG Hemoglobin ABG Oxyhemoglobin ABG Sodium ABG Potassium ABG Chloride ABG Glucose Oxyhemoglobin Carboxyhemoglobin Sodium 154 H Potassium 2.9 L* Chloride 121.4 H Carbon Dioxide BUN 26 H Creatinine 0.4 L Glucose 153 H POC Glucose 114 H Lactic Acid Calcium 7.3 L Phosphorus Magnesium Total Creatine Kinase Troponin T Total Protein Albumin Triglycerides LDL Cholesterol Direct HDL Cholesterol Arterial Blood Glucose Arterial Blood Ionized Calcium Urine pH Urine WBC (Auto) Vancomycin Trough Salicylates Acetaminophen Crossmatch 11/12/20 11/12/20 11/13/20 11:38 17:17 05:28 WBC RBC Hgb Hct MCV MCH MCHC RDW Plt Count Lymph % (Auto) [facility] % (Auto) [facility] # (Auto) Seg Neutrophils % Seg Neuts % (Manual) Lymphocytes % (Manual) Nucleated RBC % Seg Neutrophils # Seg Neutrophils # Man Lymphocytes # (Manual) Monocytes # (Manual) PT INR ABG pH POC ABG pCO2 51.4 H POC ABG pO2 41.7 L ABG pO2 ABG HCO3 ABG O2 Saturation ABG Base Excess ABG Hemoglobin 9.1 L ABG Oxyhemoglobin 72.2 L ABG Sodium 151.1 H ABG Potassium 3.2 L ABG Chloride 122.0 H ABG Glucose 191 H Oxyhemoglobin Carboxyhemoglobin Sodium Potassium Chloride Carbon Dioxide BUN Creatinine Glucose POC Glucose 125 H 127 H Lactic Acid Calcium Phosphorus Magnesium Total Creatine Kinase Troponin T Total Protein Albumin Triglycerides LDL Cholesterol Direct HDL Cholesterol Arterial Blood Glucose 191 H Arterial Blood Ionized Calcium Urine pH Urine WBC (Auto) Vancomycin Trough Salicylates Acetaminophen Crossmatch 11/13/20 11/13/20 11/13/20 10:46 23:15 23:15 WBC 12.2 H RBC 2.41 L Hgb 7.7 L Hct 24.5 L MCV 102 H MCH MCHC RDW 23.0 H Plt Count Lymph % (Auto) [facility] % (Auto) [facility] # (Auto) Seg Neutrophils % Seg Neuts % (Manual) Lymphocytes % (Manual) Nucleated RBC % Seg Neutrophils # Seg Neutrophils # Man Lymphocytes # (Manual) Monocytes # (Manual) PT INR ABG pH POC ABG pCO2 POC ABG pO2 ABG pO2 ABG HCO3 ABG O2 Saturation ABG Base Excess ABG Hemoglobin ABG Oxyhemoglobin ABG Sodium ABG Potassium ABG Chloride ABG Glucose Oxyhemoglobin Carboxyhemoglobin Sodium Potassium Chloride Carbon Dioxide BUN Creatinine Glucose POC Glucose 153 H Lactic Acid Calcium Phosphorus Magnesium Total Creatine Kinase Troponin T 0.123 H* Total Protein Albumin Triglycerides LDL Cholesterol Direct HDL Cholesterol Arterial Blood Glucose Arterial Blood Ionized Calcium Urine pH Urine WBC (Auto) Vancomycin Trough Salicylates Acetaminophen Crossmatch 11/13/20 11/13/20 11/14/20 23:15 Unknown 05:26 WBC RBC Hgb Hct MCV MCH MCHC RDW Plt Count Lymph % (Auto) [facility] % (Auto) [facility] # (Auto) Seg Neutrophils % Seg Neuts % (Manual) Lymphocytes % (Manual) Nucleated RBC % Seg Neutrophils # Seg Neutrophils # Man Lymphocytes # (Manual) Monocytes # (Manual) PT INR ABG pH 7.295 L POC ABG pCO2 56.0 H POC ABG pO2 49.1 L ABG pO2 ABG HCO3 ABG O2 Saturation ABG Base Excess ABG Hemoglobin 8.3 L ABG Oxyhemoglobin 77.1 L ABG Sodium 150.5 H ABG Potassium 3.3 L ABG Chloride 121.0 H ABG Glucose 187 H Oxyhemoglobin Carboxyhemoglobin Sodium 152 H Potassium 3.3 L Chloride 117.8 H Carbon Dioxide BUN 25 H Creatinine 0.4 L Glucose 123 H POC Glucose 46 L Lactic Acid Calcium 7.5 L Phosphorus Magnesium Total Creatine Kinase Troponin T Total Protein Albumin Triglycerides LDL Cholesterol Direct HDL Cholesterol Arterial Blood Glucose 187 H Arterial Blood Ionized Calcium Urine pH Urine WBC (Auto) Vancomycin Trough Salicylates Acetaminophen Crossmatch 11/14/20 11/14/20 11/14/20 06:26 22:26 22:26 WBC RBC 2.75 L Hgb 9.0 L Hct 27.8 L MCV 101 H MCH 33 H MCHC RDW 22.8 H Plt Count Lymph % (Auto) [facility] % (Auto) [facility] # (Auto) Seg Neutrophils % Seg Neuts % (Manual) Lymphocytes % (Manual) Nucleated RBC % Seg Neutrophils # Seg Neutrophils # Man Lymphocytes # (Manual) Monocytes # (Manual) PT INR ABG pH POC ABG pCO2 POC ABG pO2 ABG pO2 ABG HCO3 ABG O2 Saturation ABG Base Excess ABG Hemoglobin ABG Oxyhemoglobin ABG Sodium ABG Potassium ABG Chloride ABG Glucose Oxyhemoglobin Carboxyhemoglobin Sodium 147 H Potassium 3.3 L Chloride 114.3 H Carbon Dioxide BUN 23 H Creatinine 0.3 L Glucose 209 H POC Glucose 135 H Lactic Acid Calcium 7.4 L Phosphorus Magnesium Total Creatine Kinase Troponin T Total Protein Albumin Triglycerides LDL Cholesterol Direct HDL Cholesterol Arterial Blood Glucose Arterial Blood Ionized Calcium Urine pH Urine WBC (Auto) Vancomycin Trough Salicylates Acetaminophen Crossmatch 11/14/20 11/15/20 11/15/20 23:22 04:28 05:57 WBC RBC Hgb Hct MCV MCH MCHC RDW Plt Count Lymph % (Auto) [facility] % (Auto) [facility] # (Auto) Seg Neutrophils % Seg Neuts % (Manual) Lymphocytes % (Manual) Nucleated RBC % Seg Neutrophils # Seg Neutrophils # Man Lymphocytes # (Manual) Monocytes # (Manual) PT INR ABG pH POC ABG pCO2 POC ABG pO2 ABG pO2 ABG HCO3 ABG O2 Saturation ABG Base Excess ABG Hemoglobin ABG Oxyhemoglobin ABG Sodium ABG Potassium ABG Chloride ABG Glucose Oxyhemoglobin Carboxyhemoglobin Sodium 152 H Potassium Chloride 118.1 H Carbon Dioxide BUN 22 H Creatinine 0.3 L Glucose 190 H POC Glucose 136 H 151 H Lactic Acid Calcium 7.5 L Phosphorus Magnesium Total Creatine Kinase Troponin T Total Protein Albumin Triglycerides LDL Cholesterol Direct HDL Cholesterol Arterial Blood Glucose Arterial Blood Ionized Calcium Urine pH Urine WBC (Auto) Vancomycin Trough Salicylates Acetaminophen Crossmatch 11/15/20 11/15/20 11/15/20 11:40 16:56 21:53 WBC RBC Hgb Hct MCV MCH MCHC RDW Plt Count Lymph % (Auto) [facility] % (Auto) [facility] # (Auto) Seg Neutrophils % Seg Neuts % (Manual) Lymphocytes % (Manual) Nucleated RBC % Seg Neutrophils # Seg Neutrophils # Man Lymphocytes # (Manual) Monocytes # (Manual) PT INR ABG pH 7.457 H POC ABG pCO2 POC ABG pO2 ABG pO2 48.3 L ABG HCO3 26.1 H ABG O2 Saturation 82.9 L ABG Base Excess ABG Hemoglobin 9.7 L ABG Oxyhemoglobin ABG Sodium ABG Potassium ABG Chloride ABG Glucose Oxyhemoglobin 81.0 L Carboxyhemoglobin Sodium Potassium Chloride Carbon Dioxide BUN Creatinine Glucose POC Glucose 129 H 115 H Lactic Acid Calcium Phosphorus Magnesium Total Creatine Kinase Troponin T Total Protein Albumin Triglycerides LDL Cholesterol Direct HDL Cholesterol Arterial Blood Glucose Arterial Blood Ionized Calcium Urine pH Urine WBC (Auto) Vancomycin Trough Salicylates Acetaminophen Crossmatch 11/15/20 11/16/20 11/16/20 23:12 00:07 00:09 WBC RBC Hgb Hct MCV MCH MCHC RDW Plt Count Lymph % (Auto) [facility] % (Auto) [facility] # (Auto) Seg Neutrophils % Seg Neuts % (Manual) Lymphocytes % (Manual) Nucleated RBC % Seg Neutrophils # Seg Neutrophils # Man Lymphocytes # (Manual) Monocytes # (Manual) PT INR ABG pH POC ABG pCO2 POC ABG pO2 ABG pO2 95.1 H ABG HCO3 26.6 H ABG O2 Saturation ABG Base Excess ABG Hemoglobin 7.5 L ABG Oxyhemoglobin ABG Sodium ABG Potassium ABG Chloride ABG Glucose Oxyhemoglobin Carboxyhemoglobin Sodium Potassium Chloride Carbon Dioxide BUN Creatinine Glucose POC Glucose 13 L 153 H Lactic Acid Calcium Phosphorus Magnesium Total Creatine Kinase Troponin T Total Protein Albumin Triglycerides LDL Cholesterol Direct HDL Cholesterol Arterial Blood Glucose Arterial Blood Ionized Calcium Urine pH Urine WBC (Auto) Vancomycin Trough Salicylates Acetaminophen Crossmatch 11/16/20 11/16/20 11/16/20 03:43 04:00 04:00 WBC RBC 2.33 L Hgb 7.7 L Hct 24.5 L MCV 105 H MCH 33 H MCHC 31 L RDW 22.9 H Plt Count Lymph % (Auto) [facility] % (Auto) [facility] # (Auto) Seg Neutrophils % Seg Neuts % (Manual) Lymphocytes % (Manual) Nucleated RBC % Seg Neutrophils # Seg Neutrophils # Man Lymphocytes # (Manual) Monocytes # (Manual) PT INR ABG pH 7.348 L POC ABG pCO2 POC ABG pO2 ABG pO2 91.6 H ABG HCO3 26.3 H ABG O2 Saturation ABG Base Excess ABG Hemoglobin 7.3 L ABG Oxyhemoglobin ABG Sodium ABG Potassium ABG Chloride ABG Glucose Oxyhemoglobin Carboxyhemoglobin Sodium 148 H Potassium 3.5 L Chloride 115.9 H Carbon Dioxide BUN Creatinine 0.4 L Glucose 195 H POC Glucose Lactic Acid Calcium 7.6 L Phosphorus Magnesium Total Creatine Kinase Troponin T Total Protein Albumin Triglycerides LDL Cholesterol Direct HDL Cholesterol Arterial Blood Glucose Arterial Blood Ionized Calcium Urine pH Urine WBC (Auto) Vancomycin Trough Salicylates Acetaminophen Crossmatch 11/16/20 11/16/20 11/16/20 05:16 07:40 12:10 WBC RBC Hgb Hct MCV MCH MCHC RDW Plt Count Lymph % (Auto) [facility] % (Auto) [facility] # (Auto) Seg Neutrophils % Seg Neuts % (Manual) Lymphocytes % (Manual) Nucleated RBC % Seg Neutrophils # Seg Neutrophils # Man Lymphocytes # (Manual) Monocytes # (Manual) PT INR ABG pH POC ABG pCO2 POC ABG pO2 ABG pO2 ABG HCO3 ABG O2 Saturation ABG Base Excess ABG Hemoglobin ABG Oxyhemoglobin ABG Sodium ABG Potassium ABG Chloride ABG Glucose Oxyhemoglobin Carboxyhemoglobin Sodium Potassium Chloride Carbon Dioxide BUN Creatinine Glucose POC Glucose 61 L 122 H 140 H Lactic Acid Calcium Phosphorus Magnesium Total Creatine Kinase Troponin T Total Protein Albumin Triglycerides LDL Cholesterol Direct HDL Cholesterol Arterial Blood Glucose Arterial Blood Ionized Calcium Urine pH Urine WBC (Auto) Vancomycin Trough Salicylates Acetaminophen Crossmatch 11/16/20 11/16/20 11/17/20 17:14 23:40 04:30 WBC RBC Hgb Hct MCV MCH MCHC RDW Plt Count Lymph % (Auto) [place] % (Auto) [place] # (Auto) Seg Neutrophils % Seg Neuts % (Manual) Lymphocytes % (Manual) Nucleated RBC % Seg Neutrophils # Seg Neutrophils # Man Lymphocytes # (Manual) Monocytes # (Manual) PT INR ABG pH 7.470 H POC ABG pCO2 POC ABG pO2 75.4 L ABG pO2 ABG HCO3 ABG O2 Saturation ABG Base Excess ABG Hemoglobin 7 L ABG Oxyhemoglobin ABG Sodium ABG Potassium ABG Chloride 116.0 H ABG Glucose 161 H Oxyhemoglobin Carboxyhemoglobin Sodium Potassium Chloride Carbon Dioxide BUN Creatinine Glucose POC Glucose 139 H 151 H Lactic Acid Calcium Phosphorus Magnesium Total Creatine Kinase Troponin T Total Protein Albumin Triglycerides LDL Cholesterol Direct HDL Cholesterol Arterial Blood Glucose 161 H Arterial Blood Ionized Calcium Urine pH Urine WBC (Auto) Vancomycin Trough Salicylates Acetaminophen Crossmatch 11/17/20 11/17/20 11/17/20 09:50 09:50 11:10 WBC RBC 2.02 L Hgb 6.6 L Hct 20.2 L MCV 100 H MCH 33 H MCHC RDW 22.4 H Plt Count Lymph % (Auto) [place] % (Auto) [place] # (Auto) Seg Neutrophils % Seg Neuts % (Manual) Lymphocytes % (Manual) Nucleated RBC % Seg Neutrophils # Seg Neutrophils # Man Lymphocytes # (Manual) Monocytes # (Manual) PT INR ABG pH POC ABG pCO2 POC ABG pO2 ABG pO2 ABG HCO3 ABG O2 Saturation ABG Base Excess ABG Hemoglobin ABG Oxyhemoglobin ABG Sodium ABG Potassium ABG Chloride ABG Glucose Oxyhemoglobin Carboxyhemoglobin Sodium Potassium Chloride 111.8 H Carbon Dioxide BUN 23 H Creatinine 0.4 L Glucose 142 H POC Glucose Lactic Acid Calcium 7.3 L Phosphorus Magnesium Total Creatine Kinase Troponin T Total Protein Albumin Triglycerides LDL Cholesterol Direct HDL Cholesterol Arterial Blood Glucose Arterial Blood Ionized Calcium Urine pH Urine WBC (Auto) Vancomycin Trough Salicylates Acetaminophen Crossmatch See Detail 11/17/20 11/17/20 11/17/20 11:52 11:57 23:22 WBC RBC Hgb Hct MCV MCH MCHC RDW Plt Count Lymph % (Auto) [facility] % (Auto) [place] # (Auto) Seg Neutrophils % Seg Neuts % (Manual) Lymphocytes % (Manual) Nucleated RBC % Seg Neutrophils # Seg Neutrophils # Man Lymphocytes # (Manual) Monocytes # (Manual) PT INR ABG pH POC ABG pCO2 POC ABG pO2 ABG pO2 ABG HCO3 ABG O2 Saturation ABG Base Excess ABG Hemoglobin ABG Oxyhemoglobin ABG Sodium ABG Potassium ABG Chloride ABG Glucose Oxyhemoglobin Carboxyhemoglobin Sodium Potassium Chloride Carbon Dioxide BUN Creatinine Glucose POC Glucose 42 L 114 H 63 L Lactic Acid Calcium Phosphorus Magnesium Total Creatine Kinase Troponin T Total Protein Albumin Triglycerides LDL Cholesterol Direct HDL Cholesterol Arterial Blood Glucose Arterial Blood Ionized Calcium Urine pH Urine WBC (Auto) Vancomycin Trough Salicylates Acetaminophen Crossmatch 11/17/20 11/18/20 11/18/20 23:27 04:06 04:45 WBC RBC 2.36 L Hgb 7.4 L Hct 23.4 L MCV 99 H MCH MCHC RDW 21.6 H Plt Count Lymph % (Auto) [facility] % (Auto) [place] # (Auto) Seg Neutrophils % Seg Neuts % (Manual) Lymphocytes % (Manual) Nucleated RBC % Seg Neutrophils # Seg Neutrophils # Man Lymphocytes # (Manual) Monocytes # (Manual) PT INR ABG pH POC ABG pCO2 POC ABG pO2 67.7 L ABG pO2 ABG HCO3 ABG O2 Saturation ABG Base Excess ABG Hemoglobin 8.3 L ABG Oxyhemoglobin ABG Sodium ABG Potassium ABG Chloride 112.0 H ABG Glucose 143 H Oxyhemoglobin Carboxyhemoglobin Sodium Potassium Chloride Carbon Dioxide BUN Creatinine Glucose POC Glucose 124 H Lactic Acid Calcium Phosphorus Magnesium Total Creatine Kinase Troponin T Total Protein Albumin Triglycerides LDL Cholesterol Direct HDL Cholesterol Arterial Blood Glucose 143 H Arterial Blood Ionized Calcium 4.5 L Urine pH Urine WBC (Auto) Vancomycin Trough Salicylates Acetaminophen Crossmatch 11/18/20 11/18/20 11/18/20 04:45 05:56 23:46 WBC RBC Hgb Hct MCV MCH MCHC RDW Plt Count Lymph % (Auto) [facility] % (Auto) [place] # (Auto) Seg Neutrophils % Seg Neuts % (Manual) Lymphocytes % (Manual) Nucleated RBC % Seg Neutrophils # Seg Neutrophils # Man Lymphocytes # (Manual) Monocytes # (Manual) PT INR ABG pH POC ABG pCO2 POC ABG pO2 ABG pO2 ABG HCO3 ABG O2 Saturation ABG Base Excess ABG Hemoglobin ABG Oxyhemoglobin ABG Sodium ABG Potassium ABG Chloride ABG Glucose Oxyhemoglobin Carboxyhemoglobin Sodium Potassium Chloride 107.9 H Carbon Dioxide BUN 23 H Creatinine 0.4 L Glucose 139 H POC Glucose 133 H 66 L Lactic Acid Calcium 7.6 L Phosphorus Magnesium Total Creatine Kinase Troponin T Total Protein Albumin Triglycerides LDL Cholesterol Direct HDL Cholesterol Arterial Blood Glucose Arterial Blood Ionized Calcium Urine pH Urine WBC (Auto) Vancomycin Trough Salicylates Acetaminophen Crossmatch 0411/19/20 11/19/20 23:52 05:48 06:36 WBC RBC Hgb Hct MCV MCH MCHC RDW Plt Count Lymph % (Auto) [facility] % (Auto) [place] # (Auto) Seg Neutrophils % Seg Neuts % (Manual) Lymphocytes % (Manual) Nucleated RBC % Seg Neutrophils # Seg Neutrophils # Man Lymphocytes # (Manual) Monocytes # (Manual) PT INR ABG pH POC ABG pCO2 POC ABG pO2 ABG pO2 ABG HCO3 ABG O2 Saturation ABG Base Excess ABG Hemoglobin ABG Oxyhemoglobin ABG Sodium ABG Potassium ABG Chloride ABG Glucose Oxyhemoglobin Carboxyhemoglobin Sodium Potassium Chloride Carbon Dioxide BUN 21 H Creatinine 0.4 L Glucose 119 H POC Glucose 118 H 108 H Lactic Acid Calcium 7.8 L Phosphorus Magnesium Total Creatine Kinase Troponin T Total Protein Albumin Triglycerides LDL Cholesterol Direct HDL Cholesterol Arterial Blood Glucose Arterial Blood Ionized Calcium Urine pH Urine WBC (Auto) Vancomycin Trough Salicylates Acetaminophen Crossmatch 11/19/20 11/19/20 11/19/20 06:36 06:36 18:15 WBC RBC 2.79 L Hgb 9.0 L Hct 27.8 L MCV 100 H MCH MCHC RDW 20.7 H Plt Count Lymph % (Auto) [facility] % (Auto) [facility] # (Auto) Seg Neutrophils % Seg Neuts % (Manual) Lymphocytes % (Manual) Nucleated RBC % Seg Neutrophils # Seg Neutrophils # Man Lymphocytes # (Manual) Monocytes # (Manual) PT INR 1.15 H ABG pH POC ABG pCO2 POC ABG pO2 ABG pO2 ABG HCO3 ABG O2 Saturation ABG Base Excess ABG Hemoglobin ABG Oxyhemoglobin ABG Sodium ABG Potassium ABG Chloride ABG Glucose Oxyhemoglobin Carboxyhemoglobin Sodium Potassium Chloride Carbon Dioxide BUN Creatinine Glucose POC Glucose 115 H Lactic Acid Calcium Phosphorus Magnesium Total Creatine Kinase Troponin T Total Protein Albumin Triglycerides LDL Cholesterol Direct HDL Cholesterol Arterial Blood Glucose Arterial Blood Ionized Calcium Urine pH Urine WBC (Auto) Vancomycin Trough Salicylates Acetaminophen Crossmatch 11/19/20 11/19/20 11/20/20 23:27 Unknown 04:56 WBC RBC Hgb Hct MCV MCH MCHC RDW Plt Count Lymph % (Auto) [facility] % (Auto) [facility] # (Auto) Seg Neutrophils % Seg Neuts % (Manual) Lymphocytes % (Manual) Nucleated RBC % Seg Neutrophils # Seg Neutrophils # Man Lymphocytes # (Manual) Monocytes # (Manual) PT INR ABG pH 7.457 H POC ABG pCO2 POC ABG pO2 57.4 L ABG pO2 72.4 L ABG HCO3 26.9 H ABG O2 Saturation ABG Base Excess ABG Hemoglobin 8.5 L 9.6 L ABG Oxyhemoglobin 90.1 L ABG Sodium ABG Potassium ABG Chloride 109.0 H ABG Glucose 142 H Oxyhemoglobin 94.1 L Carboxyhemoglobin Sodium Potassium Chloride Carbon Dioxide BUN Creatinine Glucose POC Glucose 129 H Lactic Acid Calcium Phosphorus Magnesium Total Creatine Kinase Troponin T Total Protein Albumin Triglycerides LDL Cholesterol Direct HDL Cholesterol Arterial Blood Glucose 142 H Arterial Blood Ionized Calcium Urine pH Urine WBC (Auto) Vancomycin Trough Salicylates Acetaminophen Crossmatch 11/20/20 11/20/20 11/20/20 05:07 05:45 05:45 WBC 11.7 H RBC 2.74 L Hgb 8.9 L Hct 26.3 L MCV 96 H MCH 33 H MCHC RDW 18.6 H Plt Count Lymph % (Auto) [facility] % (Auto) [facility] # (Auto) Seg Neutrophils % Seg Neuts % (Manual) Lymphocytes % (Manual) Nucleated RBC % Seg Neutrophils # Seg Neutrophils # Man Lymphocytes # (Manual) Monocytes # (Manual) PT INR ABG pH POC ABG pCO2 POC ABG pO2 ABG pO2 ABG HCO3 ABG O2 Saturation ABG Base Excess ABG Hemoglobin ABG Oxyhemoglobin ABG Sodium ABG Potassium ABG Chloride ABG Glucose Oxyhemoglobin Carboxyhemoglobin Sodium Potassium Chloride Carbon Dioxide 31 H BUN Creatinine 0.4 L Glucose 127 H POC Glucose 129 H Lactic Acid Calcium 8.0 L Phosphorus Magnesium Total Creatine Kinase Troponin T Total Protein Albumin Triglycerides LDL Cholesterol Direct HDL Cholesterol Arterial Blood Glucose Arterial Blood Ionized Calcium Urine pH Urine WBC (Auto) Vancomycin Trough Salicylates Acetaminophen Crossmatch 11/20/20 11/20/20 11/21/20 12:02 17:52 00:02 WBC RBC Hgb Hct MCV MCH MCHC RDW Plt Count Lymph % (Auto) [facility] % (Auto) [facility] # (Auto) Seg Neutrophils % Seg Neuts % (Manual) Lymphocytes % (Manual) Nucleated RBC % Seg Neutrophils # Seg Neutrophils # Man Lymphocytes # (Manual) Monocytes # (Manual) PT INR ABG pH POC ABG pCO2 POC ABG pO2 ABG pO2 ABG HCO3 ABG O2 Saturation ABG Base Excess ABG Hemoglobin ABG Oxyhemoglobin ABG Sodium ABG Potassium ABG Chloride ABG Glucose Oxyhemoglobin Carboxyhemoglobin Sodium Potassium Chloride Carbon Dioxide BUN Creatinine Glucose POC Glucose 134 H 115 H 116 H Lactic Acid Calcium Phosphorus Magnesium Total Creatine Kinase Troponin T Total Protein Albumin Triglycerides LDL Cholesterol Direct HDL Cholesterol Arterial Blood Glucose Arterial Blood Ionized Calcium Urine pH Urine WBC (Auto) Vancomycin Trough Salicylates Acetaminophen Crossmatch 11/21/20 11/21/20 11/21/20 03:23 04:00 05:14 WBC RBC Hgb Hct MCV MCH MCHC RDW Plt Count Lymph % (Auto) [facility] % (Auto) [facility] # (Auto) Seg Neutrophils % Seg Neuts % (Manual) Lymphocytes % (Manual) Nucleated RBC % Seg Neutrophils # Seg Neutrophils # Man Lymphocytes # (Manual) Monocytes # (Manual) PT INR ABG pH 7.479 H POC ABG pCO2 POC ABG pO2 73.7 L ABG pO2 ABG HCO3 ABG O2 Saturation ABG Base Excess ABG Hemoglobin 9.4 L ABG Oxyhemoglobin ABG Sodium ABG Potassium ABG Chloride 108.0 H ABG Glucose 135 H Oxyhemoglobin Carboxyhemoglobin Sodium Potassium Chloride Carbon Dioxide 34 H BUN Creatinine 0.4 L Glucose 125 H POC Glucose 116 H Lactic Acid Calcium 7.9 L Phosphorus Magnesium Total Creatine Kinase Troponin T Total Protein Albumin Triglycerides LDL Cholesterol Direct HDL Cholesterol Arterial Blood Glucose 135 H Arterial Blood Ionized Calcium 4.5 L Urine pH Urine WBC (Auto) Vancomycin Trough Salicylates Acetaminophen Crossmatch 11/22/20 11/22/20 11/22/20 04:00 04:00 05:34 WBC 12.2 H RBC 2.74 L Hgb 8.7 L Hct 27.4 L MCV 100 H MCH MCHC RDW 19.2 H Plt Count Lymph % (Auto) [facility] % (Auto) [facility] # (Auto) Seg Neutrophils % Seg Neuts % (Manual) Lymphocytes % (Manual) Nucleated RBC % Seg Neutrophils # Seg Neutrophils # Man Lymphocytes # (Manual) Monocytes # (Manual) PT INR ABG pH POC ABG pCO2 POC ABG pO2 ABG pO2 ABG HCO3 ABG O2 Saturation ABG Base Excess ABG Hemoglobin ABG Oxyhemoglobin ABG Sodium ABG Potassium ABG Chloride ABG Glucose Oxyhemoglobin Carboxyhemoglobin Sodium Potassium Chloride Carbon Dioxide BUN Creatinine 0.4 L Glucose POC Glucose 58 L Lactic Acid Calcium 7.7 L Phosphorus Magnesium Total Creatine Kinase Troponin T Total Protein Albumin Triglycerides LDL Cholesterol Direct HDL Cholesterol Arterial Blood Glucose Arterial Blood Ionized Calcium Urine pH Urine WBC (Auto) Vancomycin Trough Salicylates Acetaminophen Crossmatch 11/22/20 11/23/20 11/23/20 11:48 00:15 04:25 WBC RBC Hgb Hct MCV MCH MCHC RDW Plt Count Lymph % (Auto) [facility] % (Auto) [facility] # (Auto) Seg Neutrophils % Seg Neuts % (Manual) Lymphocytes % (Manual) Nucleated RBC % Seg Neutrophils # Seg Neutrophils # Man Lymphocytes # (Manual) Monocytes # (Manual) PT INR ABG pH 7.489 H POC ABG pCO2 POC ABG pO2 74.7 L ABG pO2 ABG HCO3 ABG O2 Saturation ABG Base Excess ABG Hemoglobin 9.6 L ABG Oxyhemoglobin ABG Sodium 135.6 L ABG Potassium ABG Chloride ABG Glucose 119 H Oxyhemoglobin Carboxyhemoglobin Sodium Potassium Chloride Carbon Dioxide BUN Creatinine Glucose POC Glucose 60 L 106 H Lactic Acid Calcium Phosphorus Magnesium Total Creatine Kinase Troponin T Total Protein Albumin Triglycerides LDL Cholesterol Direct HDL Cholesterol Arterial Blood Glucose 119 H Arterial Blood Ionized Calcium 4.4 L Urine pH Urine WBC (Auto) Vancomycin Trough Salicylates Acetaminophen Crossmatch 11/23/20 11/23/20 11/23/20 05:27 10:23 10:23 WBC 11.3 H RBC 2.58 L Hgb 8.4 L Hct 24.7 L MCV 96 H MCH MCHC RDW 18.2 H Plt Count Lymph % (Auto) [facility] % (Auto) [facility] # (Auto) Seg Neutrophils % Seg Neuts % (Manual) 94.0 H Lymphocytes % (Manual) 5.0 L Nucleated RBC % Seg Neutrophils # Seg Neutrophils # Man 10.6 H Lymphocytes # (Manual) 0.6 L Monocytes # (Manual) PT INR ABG pH POC ABG pCO2 POC ABG pO2 ABG pO2 ABG HCO3 ABG O2 Saturation ABG Base Excess ABG Hemoglobin ABG Oxyhemoglobin ABG Sodium ABG Potassium ABG Chloride ABG Glucose Oxyhemoglobin Carboxyhemoglobin Sodium Potassium Chloride Carbon Dioxide BUN Creatinine 0.4 L Glucose 101 H POC Glucose 121 H Lactic Acid Calcium 7.2 L Phosphorus Magnesium Total Creatine Kinase Troponin T Total Protein Albumin Triglycerides LDL Cholesterol Direct HDL Cholesterol Arterial Blood Glucose Arterial Blood Ionized Calcium Urine pH Urine WBC (Auto) Vancomycin Trough Salicylates Acetaminophen Crossmatch 11/23/20 11/23/20 11/24/20 11:53 23:19 05:31 WBC RBC Hgb Hct MCV MCH MCHC RDW Plt Count Lymph % (Auto) [facility] % (Auto) [facility] # (Auto) Seg Neutrophils % Seg Neuts % (Manual) Lymphocytes % (Manual) Nucleated RBC % Seg Neutrophils # Seg Neutrophils # Man Lymphocytes # (Manual) Monocytes # (Manual) PT INR ABG pH POC ABG pCO2 POC ABG pO2 ABG pO2 ABG HCO3 ABG O2 Saturation ABG Base Excess ABG Hemoglobin ABG Oxyhemoglobin ABG Sodium ABG Potassium ABG Chloride ABG Glucose Oxyhemoglobin Carboxyhemoglobin Sodium Potassium Chloride Carbon Dioxide BUN Creatinine Glucose POC Glucose 112 H 120 H 132 H Lactic Acid Calcium Phosphorus Magnesium Total Creatine Kinase Troponin T Total Protein Albumin Triglycerides LDL Cholesterol Direct HDL Cholesterol Arterial Blood Glucose Arterial Blood Ionized Calcium Urine pH Urine WBC (Auto) Vancomycin Trough Salicylates Acetaminophen Crossmatch 11/24/20 11/24/20 11/24/20 11:27 16:48 23:11 WBC RBC Hgb Hct MCV MCH MCHC RDW Plt Count Lymph % (Auto) [facility] % (Auto) [facility] # (Auto) Seg Neutrophils % Seg Neuts % (Manual) Lymphocytes % (Manual) Nucleated RBC % Seg Neutrophils # Seg Neutrophils # Man Lymphocytes # (Manual) Monocytes # (Manual) PT INR ABG pH POC ABG pCO2 POC ABG pO2 ABG pO2 ABG HCO3 ABG O2 Saturation ABG Base Excess ABG Hemoglobin ABG Oxyhemoglobin ABG Sodium ABG Potassium ABG Chloride ABG Glucose Oxyhemoglobin Carboxyhemoglobin Sodium Potassium Chloride Carbon Dioxide BUN Creatinine Glucose POC Glucose 137 H 128 H 114 H Lactic Acid Calcium Phosphorus Magnesium Total Creatine Kinase Troponin T Total Protein Albumin Triglycerides LDL Cholesterol Direct HDL Cholesterol Arterial Blood Glucose Arterial Blood Ionized Calcium Urine pH Urine WBC (Auto) Vancomycin Trough Salicylates Acetaminophen Crossmatch 11/25/20 11/25/20 11/25/20 05:06 11:20 11:31 WBC 19.0 H RBC 2.28 L Hgb 7.3 L Hct 22.5 L MCV 99 H MCH MCHC RDW 18.3 H Plt Count Lymph % (Auto) [facility] % (Auto) [facility] # (Auto) Seg Neutrophils % Seg Neuts % (Manual) Lymphocytes % (Manual) Nucleated RBC % Seg Neutrophils # Seg Neutrophils # Man Lymphocytes # (Manual) Monocytes # (Manual) PT INR ABG pH POC ABG pCO2 POC ABG pO2 ABG pO2 ABG HCO3 ABG O2 Saturation ABG Base Excess ABG Hemoglobin ABG Oxyhemoglobin ABG Sodium ABG Potassium ABG Chloride ABG Glucose Oxyhemoglobin Carboxyhemoglobin Sodium Potassium Chloride Carbon Dioxide BUN Creatinine Glucose POC Glucose 125 H 106 H Lactic Acid Calcium Phosphorus Magnesium Total Creatine Kinase Troponin T Total Protein Albumin Triglycerides LDL Cholesterol Direct HDL Cholesterol Arterial Blood Glucose Arterial Blood Ionized Calcium Urine pH Urine WBC (Auto) Vancomycin Trough Salicylates Acetaminophen Crossmatch 11/25/20 11/26/20 11/26/20 16:25 09:25 12:01 WBC 20.8 H RBC 2.82 L Hgb 8.7 L Hct 27.3 L MCV 97 H MCH MCHC RDW 17.9 H Plt Count Lymph % (Auto) [facility] % (Auto) [facility] # (Auto) Seg Neutrophils % Seg Neuts % (Manual) Lymphocytes % (Manual) Nucleated RBC % Seg Neutrophils # Seg Neutrophils # Man Lymphocytes # (Manual) Monocytes # (Manual) PT INR ABG pH 7.480 H POC ABG pCO2 POC ABG pO2 78.1 L ABG pO2 ABG HCO3 ABG O2 Saturation ABG Base Excess ABG Hemoglobin 8.5 L ABG Oxyhemoglobin ABG Sodium ABG Potassium ABG Chloride ABG Glucose 114 H Oxyhemoglobin Carboxyhemoglobin Sodium Potassium Chloride Carbon Dioxide BUN Creatinine Glucose POC Glucose 130 H Lactic Acid Calcium Phosphorus Magnesium Total Creatine Kinase Troponin T Total Protein Albumin Triglycerides LDL Cholesterol Direct HDL Cholesterol Arterial Blood Glucose 114 H Arterial Blood Ionized Calcium 4.5 L Urine pH Urine WBC (Auto) Vancomycin Trough Salicylates Acetaminophen Crossmatch 11/26/20 11/26/20 11/27/20 16:55 23:43 05:55 WBC 18.1 H RBC 2.48 L Hgb 7.8 L Hct 23.9 L MCV 97 H MCH MCHC RDW 17.7 H Plt Count Lymph % (Auto) [facility] % (Auto) [facility] # (Auto) Seg Neutrophils % Seg Neuts % (Manual) Lymphocytes % (Manual) Nucleated RBC % Seg Neutrophils # Seg Neutrophils # Man Lymphocytes # (Manual) Monocytes # (Manual) PT INR ABG pH POC ABG pCO2 POC ABG pO2 ABG pO2 ABG HCO3 ABG O2 Saturation ABG Base Excess ABG Hemoglobin ABG Oxyhemoglobin ABG Sodium ABG Potassium ABG Chloride ABG Glucose Oxyhemoglobin Carboxyhemoglobin Sodium Potassium Chloride Carbon Dioxide BUN Creatinine Glucose POC Glucose 123 H 110 H Lactic Acid Calcium Phosphorus Magnesium Total Creatine Kinase Troponin T Total Protein Albumin Triglycerides LDL Cholesterol Direct HDL Cholesterol Arterial Blood Glucose Arterial Blood Ionized Calcium Urine pH Urine WBC (Auto) Vancomycin Trough Salicylates Acetaminophen Crossmatch 11/27/20 11/27/20 11/27/20 05:55 11:41 18:08 WBC RBC Hgb Hct MCV MCH MCHC RDW Plt Count Lymph % (Auto) [facility] % (Auto) [facility] # (Auto) Seg Neutrophils % Seg Neuts % (Manual) Lymphocytes % (Manual) Nucleated RBC % Seg Neutrophils # Seg Neutrophils # Man Lymphocytes # (Manual) Monocytes # (Manual) PT INR ABG pH POC ABG pCO2 POC ABG pO2 ABG pO2 ABG HCO3 ABG O2 Saturation ABG Base Excess ABG Hemoglobin ABG Oxyhemoglobin ABG Sodium ABG Potassium ABG Chloride ABG Glucose Oxyhemoglobin Carboxyhemoglobin Sodium Potassium Chloride Carbon Dioxide 32 H BUN Creatinine 0.4 L Glucose 133 H POC Glucose 111 H 115 H Lactic Acid Calcium 7.5 L Phosphorus Magnesium Total Creatine Kinase Troponin T Total Protein 6.1 L Albumin 1.7 L Triglycerides LDL Cholesterol Direct HDL Cholesterol Arterial Blood Glucose Arterial Blood Ionized Calcium Urine pH Urine WBC (Auto) Vancomycin Trough Salicylates Acetaminophen Crossmatch 11/27/20 11/28/20 11/28/20 23:29 03:56 05:12 WBC RBC Hgb Hct MCV MCH MCHC RDW Plt Count Lymph % (Auto) [facility] % (Auto) [facility] # (Auto) Seg Neutrophils % Seg Neuts % (Manual) Lymphocytes % (Manual) Nucleated RBC % Seg Neutrophils # Seg Neutrophils # Man Lymphocytes # (Manual) Monocytes # (Manual) PT INR ABG pH 7.515 H POC ABG pCO2 POC ABG pO2 74.5 L ABG pO2 ABG HCO3 ABG O2 Saturation ABG Base Excess ABG Hemoglobin 8.4 L ABG Oxyhemoglobin ABG Sodium ABG Potassium ABG Chloride ABG Glucose 130 H Oxyhemoglobin Carboxyhemoglobin Sodium Potassium Chloride Carbon Dioxide BUN Creatinine Glucose POC Glucose 112 H 113 H Lactic Acid Calcium Phosphorus Magnesium Total Creatine Kinase Troponin T Total Protein Albumin Triglycerides LDL Cholesterol Direct HDL Cholesterol Arterial Blood Glucose 130 H Arterial Blood Ionized Calcium 4.5 L Urine pH Urine WBC (Auto) Vancomycin Trough Salicylates Acetaminophen Crossmatch 11/28/20 11/28/20 11/29/20 06:24 23:44 05:33 WBC RBC Hgb Hct MCV MCH MCHC RDW Plt Count Lymph % (Auto) [facility] % (Auto) [facility] # (Auto) Seg Neutrophils % Seg Neuts % (Manual) Lymphocytes % (Manual) Nucleated RBC % Seg Neutrophils # Seg Neutrophils # Man Lymphocytes # (Manual) Monocytes # (Manual) PT INR ABG pH POC ABG pCO2 POC ABG pO2 ABG pO2 ABG HCO3 ABG O2 Saturation ABG Base Excess ABG Hemoglobin ABG Oxyhemoglobin ABG Sodium ABG Potassium ABG Chloride ABG Glucose Oxyhemoglobin Carboxyhemoglobin Sodium 136 L Potassium Chloride Carbon Dioxide BUN Creatinine 0.4 L Glucose 124 H POC Glucose 112 H 107 H Lactic Acid Calcium 7.4 L Phosphorus Magnesium Total Creatine Kinase Troponin T Total Protein Albumin Triglycerides LDL Cholesterol Direct HDL Cholesterol Arterial Blood Glucose Arterial Blood Ionized Calcium Urine pH Urine WBC (Auto) Vancomycin Trough Salicylates Acetaminophen Crossmatch 11/29/20 11/29/20 11/29/20 11:59 23:16 23:16 WBC 15.5 H RBC 2.40 L Hgb 7.5 L Hct 23.1 L MCV 96 H MCH MCHC RDW 17.6 H Plt Count Lymph % (Auto) [facility] % (Auto) [facility] # (Auto) Seg Neutrophils % Seg Neuts % (Manual) Lymphocytes % (Manual) Nucleated RBC % Seg Neutrophils # Seg Neutrophils # Man Lymphocytes # (Manual) Monocytes # (Manual) PT INR ABG pH POC ABG pCO2 POC ABG pO2 ABG pO2 ABG HCO3 ABG O2 Saturation ABG Base Excess ABG Hemoglobin ABG Oxyhemoglobin ABG Sodium ABG Potassium ABG Chloride ABG Glucose Oxyhemoglobin Carboxyhemoglobin Sodium 135 L Potassium Chloride Carbon Dioxide 31 H BUN Creatinine 0.4 L Glucose 110 H POC Glucose 121 H Lactic Acid Calcium 7.6 L Phosphorus Magnesium Total Creatine Kinase Troponin T Total Protein Albumin Triglycerides LDL Cholesterol Direct HDL Cholesterol Arterial Blood Glucose Arterial Blood Ionized Calcium Urine pH Urine WBC (Auto) Vancomycin Trough Salicylates Acetaminophen Crossmatch 11/30/20 11/30/20 11/30/20 00:14 05:14 05:14 WBC 15.6 H RBC 2.46 L Hgb 7.7 L Hct 23.8 L MCV 97 H MCH MCHC RDW 17.2 H Plt Count Lymph % (Auto) 9.[address] % (Auto) 10.[address] # (Auto) 1.6 H Seg Neutrophils % 79.3 H Seg Neuts % (Manual) Lymphocytes % (Manual) Nucleated RBC % Seg Neutrophils # 12.3 H Seg Neutrophils # Man Lymphocytes # (Manual) Monocytes # (Manual) PT INR ABG pH POC ABG pCO2 POC ABG pO2 ABG pO2 ABG HCO3 ABG O2 Saturation ABG Base Excess ABG Hemoglobin ABG Oxyhemoglobin ABG Sodium ABG Potassium ABG Chloride ABG Glucose Oxyhemoglobin Carboxyhemoglobin Sodium Potassium Chloride Carbon Dioxide BUN 21 H Creatinine 0.4 L Glucose 126 H POC Glucose 109 H Lactic Acid Calcium 7.7 L Phosphorus Magnesium Total Creatine Kinase Troponin T Total Protein Albumin Triglycerides LDL Cholesterol Direct HDL Cholesterol Arterial Blood Glucose Arterial Blood Ionized Calcium Urine pH Urine WBC (Auto) Vancomycin Trough Salicylates Acetaminophen Crossmatch 11/30/20 11/30/20 06:10 12:11 WBC RBC Hgb Hct MCV MCH MCHC RDW Plt Count Lymph % (Auto) [facility] % (Auto) [facility] # (Auto) Seg Neutrophils % Seg Neuts % (Manual) Lymphocytes % (Manual) Nucleated RBC % Seg Neutrophils # Seg Neutrophils # Man Lymphocytes # (Manual) Monocytes # (Manual) PT INR ABG pH POC ABG pCO2 POC ABG pO2 ABG pO2 ABG HCO3 ABG O2 Saturation ABG Base Excess ABG Hemoglobin ABG Oxyhemoglobin ABG Sodium ABG Potassium ABG Chloride ABG Glucose Oxyhemoglobin Carboxyhemoglobin Sodium Potassium Chloride Carbon Dioxide BUN Creatinine Glucose POC Glucose 120 H 117 H Lactic Acid Calcium Phosphorus Magnesium Total Creatine Kinase Troponin T Total Protein Albumin Triglycerides LDL Cholesterol Direct HDL Cholesterol Arterial Blood Glucose Arterial Blood Ionized Calcium Urine pH Urine WBC (Auto) Vancomycin Trough Salicylates Acetaminophen Crossmatch Allied health notes reviewed: nursing
--- NOTE | 2020-12-01 12:13 | Progress Note ---
Assessment and Plan Cultures: 10/26/2020 tracheal aspirate culture: MRSA 10/26/2020 blood culture: Proteus 10/27/2020 urine culture: Mixed hien 11/15/2020 sputum culture: MRSA A/P: 75-year-old male, [facility] resident with seizure disorder, hypertension, depression, hyperlipidemia, chronic encephalopathy was sent to the hospital with worsening mental status: #Septic shock: probably from pneumonia. Resolved #Acute hypoxic respiratory failure: on the vent, s/p trach. #Proteus bacteremia: multifactorial from infected sacral decubitus ulcer, bilateral pneumonia, UTI. S/P abx. #Acute diarrhea: ?C. difficile, improved on vancomycin p.o. Diarrhea improved, Cdiff test was not able to be done. #Necrotic, infected sacral decubitus ulcer: underwent debridement 10/29/2020, also noted to have brittle coccyx consistent with osteomyelitis. s/p abx. #UTI: UA with significant pyuria. Culture with mixed hien. S/P abx. #FAZAL: resolved. #PVD: SFA occlusion. Not a candidate for revascularization per vascular Recs: -Leucocytosis multifactorial including from ischemic feet/digits, large necrotic sacral wound. No fever, remains off pressors. Monitor off antibiotics for now. -Continue local wound care -Guarded prognosis Stephania Starr MD, FACP [facility] ([facility]) O: [phone] F: [phone] Subjective Date of service: 12/01/20 Principal diagnosis: Acute Resp Fail, PNA, Septic Shock, Sacral Ulcer, AF with RVR Interval history: No fever. Remains on the vent via trach. Objective - Exam Narrative Exam: Physical Exam: Constitutional: awake, on the vent Head, Ears, Nose: Normocephalic, atraumatic. External ears, nose normal Eyes: Conjunctivae/corneas clear. No icterus. No ptosis. Neck: trach Oral: limited Cardiovascular: S1, S2 + Respiratory: AE fair bilaterally and equal GI: Soft, bowel sounds +, PEG + Musculoskeletal: Anasarca. Bilateral lower extremities with wounds, ischemic digits Skin: No rash or abscess. Hem/Lymphatic: No palpable cervical or supraclavicular nodes. No lymphangitis Psych: no agitation Neurological: awake, on the vent via trach - Constitutional Vitals: Vital Signs Temp Pulse Resp BP Pulse Ox 97.7 F 96 H 33 H 138/83 96 12/01/20 08:00 12/01/20 11:47 12/01/20 11:00 12/01/20 11:47 12/01/20 11:47 Temperature -Last 24 Hours Temperature 97.7 F Temperature 98.2 F Temperature 98.6 F Temperature 98.8 F Temperature 98.4 F - Labs CBC & Chem 7: 11/30/20 05:14 11/30/20 05:14 Labs: Abnormal lab results 11/30/20 Range/Units 12:11 POC Glucose 117 H (70-105) mg/dL
--- NOTE | 2020-12-01 15:20 | Progress Note ---
Assessment and Plan Telemetry reviewed: A. fib heart rate 90s. No events overnight Afib with RVR. Continue current cardiac regimen. Continue Metoprolol to 12.5mg Q6Hr. Continue Amiodarone to 200mg PO BID. Continue Midodrine 10mg PO TID. No systemic AC at this time in setting of anemia requiring PRBC tx, thrombocytopenia and sacral ulcer. Elevated Troponin Considering pt's advanced age and comorbidities will plan for conservative cardiac management. Anemia requiring transfusion Continue to hold AC in setting of anemia requiring transfusions. Acute Respiratory Failure s/p Trach. Ventilated. DVT Prophylaxis. On Lovenox DVT prophylaxis. SCDs in place. Patient currently stable cardiac condition. Continue current cardiac regimen. Will follow on as-needed basis. The patient has been seen in conjunction with Dr. Landa who agrees with the assessment and plan of care. - Patient Problems (1) AMS (altered mental status) Current Visit: Yes Status: Acute (2) Atrial fibrillation with RVR Current Visit: Yes Status: Acute (3) Acute respiratory failure Current Visit: Yes Status: Acute (4) Bilateral pneumonia Current Visit: Yes Status: Acute (5) Sepsis Current Visit: Yes Status: Acute (6) Sepsis associated hypotension Current Visit: Yes Status: Acute (7) Sacral decubitus ulcer, stage IV Current Visit: Yes Status: Acute (8) UTI (urinary tract infection) Current Visit: Yes Status: Acute (9) FAZAL (acute kidney injury) Current Visit: Yes Status: Acute (10) Hypomagnesemia Current Visit: Yes Status: Acute (11) Anemia Current Visit: Yes Status: Acute (12) Thrombocytopenia Current Visit: Yes Status: Acute Subjective Date of service: 12/01/20 Principal diagnosis: Acute Resp Fail, PNA, Septic Shock, Sacral Ulcer, AF with RVR Interval history: Pt is s/p Trach & PEG ventilated, awake and able to follow simple commands. Tele reviewed: A. fib heart rate 90s. No events overnight Objective Vital Signs Temp Pulse Pulse Pulse Resp Resp BP 12/01/20 14:00 88 15 146/93 12/01/20 13:30 95 H 17 140/86 12/01/20 13:00 105 H 21 137/91 12/01/20 12:53 103 H 137/89 12/01/20 12:30 117 H 16 137/89 12/01/20 12:00 97.5 F L 99 H 94 H 24 135/85 05/03 11:47 96 H 138/83 12/01/20 11:30 103 H 29 H 132/83 05/10/19 11:00 89 33 H 132/83 05/10/19 10:30 94 H 32 H 131/87 /10/19 10:00 95 H 33 H 132/78 /10/19 09:30 97 H 26 H 129/88 12/01/20 09:00 93 H 32 H 130/78 12/01/20 08:49 91 H 125/85 12/01/20 08:30 95 H 26 H 135/84 /10/19 08:16 84 30 H 125/85 05 08:13 92 H 125/85 05/03 08:00 97.7 F 95 H 82 19 125/85 03 07:30 93 H 25 H 131/90 12/01/20 07:00 86 26 H 126/80 12/01/20 06:30 99 H 25 H 127/82 03 06:00 98 H 22 130/85 03 05:30 97 H 18 125/81 03 05:00 98 H 15 131/83 05/03 04:30 98 H 9 L 131/83 03 04:23 97 H 127/79 /03 04:00 98.2 F 97 H 89 23 127/79 03 03:30 99 H 26 H 113/84 03 03:00 96 H 22 134/89 03 02:30 102 H 15 136/84 05/03 02:00 101 H 16 118/80 03 01:30 91 H 24 135/79 05/03 01:00 79 20 132/79 03 00:30 91 H 14 126/82 03 00:00 98.6 F 91 H 89 12 123/81 05/02 23:34 88 15 135/87 11/30/20 23:30 95 H 12 135/87 11/30/20 23:25 91 H 123/77 11/30/20 23:00 95 H 18 129/77 02 22:30 97 H 13 125/76 05/02/21 22:00 94 H 19 126/82 11/30/20 21:30 87 22 122/80 11/30/20 21:00 95 H 20 118/73 11/30/20 20:30 96 H 16 126/80 11/30/20 20:15 93 H 93 H 21 127/74 11/30/20 20:00 98.8 F 94 H 89 23 127/74 11/30/20 19:30 99 H 25 H 136/84 11/30/20 19:00 93 H 27 H 140/85 11/30/20 18:30 97 H 27 H 137/89 11/30/20 18:00 95 H 24 122/92 11/30/20 17:30 97 H 26 H 133/85 11/30/20 17:00 93 H 24 141/88 11/30/20 16:45 95 H 34 H 147/83 11/30/20 16:30 93 H 25 H 147/83 11/30/20 16:00 98.4 F 91 H 89 29 H 140/84 11/30/20 15:30 90 33 H 149/83 Pulse Ox Pulse Ox 12/01/20 14:00 96 12/01/20 13:30 96 12/01/20 13:00 91 12/01/20 12:53 12/01/20 12:30 95 12/01/20 12:00 97 12/01/20 11:47 96 12/01/20 11:30 95 12/01/20 11:00 93 12/01/20 10:30 95 12/01/20 10:00 95 12/01/20 09:30 94 12/01/20 09:00 95 12/01/20 08:49 12/01/20 08:30 94 12/01/20 08:16 96 12/01/20 08:13 96 12/01/20 08:00 96 12/01/20 07:30 94 12/01/20 07:00 95 12/01/20 06:30 96 12/01/20 06:00 93 12/01/20 05:30 94 12/01/20 05:00 93 12/01/20 04:30 97 12/01/20 04:23 99 12/01/20 04:00 98 12/01/20 03:30 98 12/01/20 03:00 97 12/01/20 02:30 96 12/01/20 02:00 83 L 96 12/01/20 01:30 95 12/01/20 01:00 95 12/01/20 00:30 97 12/01/20 00:00 96 11/30/20 23:34 97 11/30/20 23:30 98 11/30/20 23:25 11/30/20 23:00 96 11/30/20 22:30 95 11/30/20 22:00 94 11/30/20 21:30 95 11/30/20 21:00 97 11/30/20 20:30 96 11/30/20 20:15 96 11/30/20 20:00 93 11/30/20 19:30 91 11/30/20 19:00 96 11/30/20 18:30 95 11/30/20 18:00 90 11/30/20 17:30 93 11/30/20 17:00 93 11/30/20 16:45 94 11/30/20 16:30 93 11/30/20 16:00 95 11/30/20 15:30 95 - Physical Examination General: No Apparent Distress, Other (intubated) HEENT: Positive: EOMI, Normocephaly, Mucus Membranes Moist Neck: Positive: neck supple, trachea midline Cardiac: Positive: Reg Rate and Rhythm, S1/S2 Lungs: Positive: clear to auscultation, Normal Breath Sounds Neuro: Positive: Other (awake, able to follow simple commands, aphasic s/p trach) Abdomen: Positive: Soft, Active Bowel Sounds. Negative: Tender Skin: Positive: Wound (sacral). Negative: Rash Musculoskeletal: No Fluid Collection, No Pain Extremities: Present: upper extr. pulses, lower extr. pulses, +1 Edema, Other (chronic skin changes noted) - Imaging and Cardiology EKG: report reviewed, image reviewed Echo: report reviewed (10/28/2020- EF 55-60%, no significant valvular abnormalities) Repolarization changes or abnormalities: nonspecific abnormality, ST segment, and/or T wave - Allied health notes Allied health notes reviewed: nursing
--- NOTE | 2020-12-01 17:52 | Progress Note ---
Assessment and Plan Assessment and plan: 75-year-old male who is a snf resident with seizure disorder, hypertension, depression, hyperlipidemia, hypoglycemia, dysphagia, and encephalopathy who is admitted for sepsis, acute kidney injury, urinary tract infection, acute respiratory failure, electrolyte imbalances, infected sacral wound and bilateral pneumonia s/p Sepsis Acute respiratory failure with Hypoxia s/p Cardiovascular shock Infected sacral wound s/p debridement with surgery Generalized anasarca possible acute diastolic congestive heart failure Anemia Afib Bilateral pleural effusion Right and left lung atelectasis secondary to mucous plug s/p Proteus bacteremia s/p MRSA pneumonia s/p Urine tract infection Leukocytosis Acute kidney injury with vasomotor Nephropathy Acute Diarrhea ?C.diff- Test was not performed SFA occlusion - Not a candidate for surgery per Vascular Hyponatremia -ID, cardiology, CCM, surgery, vascular surgery, nephrology, surgery, WOCN consulted, appreciate recommendations -FAZAL, pneumonia, infected sacral wound, acute respiratory failure, leukocytosis, hypotension requiring vasopressor support -s/p Antibiotic therapy -10/26 tracheal aspirate with MRSA, 10/26 blood cultures x2 with Proteus mirab ilis, 10/27 urine culture possible contaminant, 11/15: Trach aspirate positive for staph coccus aureus, 11/06 occult stool positive -On mechanical ventilation, wean as tolerated, VAP bundle, CPAP trials as tolerated -Wound care per nursing -Fentanyl IVP -Midodrine, amiodorone -S/p IVF resuscitation -HIT panel negative -11/21/20 trach/PEG placement with surgery -s/p 5 units PRBC during stay -Not a candidate for vascularization per vascular -Trend CBC and BMP GI/DVT prophylaxis: Lovenox subq, SCDs to bilateral legs while in bed, PPI Dispo: ICU, [facility] The high probability of a clinically significant, sudden or life threatening deterioration of the [pulmonary, cardiac] system(s) required my full and direct attention, intervention and personal management. The aggregate critical care time was [30] minutes. This time is in addition to time spent performing reported procedures but includes the following: [X] Data Review and interpretation [X] Patient assessment and monitoring of vital signs [X] Documentation [X] Medication orders and management History Interval history: This is a 75-year-old male who is a snf resident with seizure disorder, hypertension, depression, hyperlipidemia, hypoglycemia, dysphagia, and encephalopathy who presents to the emergency department on 10/26 via EMS for tachypnea, dry mucous membranes and hypoxia. Patient was hypotensive, febrile to 103 degrees and hypoxic in the emergency department therefore he was intubated and central IV access was obtained. Patient received 3.5 L of IV fluid in the emergency department. Patient was admitted to the hospital service with consults to CCM, surgery, WOCN and ID for Sepsis, acute kidney injury, urinary tract infection, acute respiratory failure, electrolyte imbalances, infected sacral wound and bilateral pneumonia. 10/27: Patient received additional 4 L LR for fluid resuscitation and CV monitoring was initiated. Patient is on Levophed. ID added Flagyl to vancomycin and cefepime. His trach aspirate grew staph coccus aureus. At the time my examination patient the fentanyl drip was held by RN and he was on 14 MCG of Levophed. This morning he was on assist control 450/20/6/.100. We will give additional bolus of fluids with goal CVP 10-12 and repeat labs in AM. Surgery was consulted to possible debridement. 10/28: Overnight it was noted that patient went into SVT and he was given adenosine 6 mg/12 mg / 12 mg once and was started on a Cardizem drip after no response to amnio bolus and cardiology was consulted. Currently patient remains on Levophed drip and is hypotensive and received additional 2 L of bolus for goal CVP of 10-12. Infectious disease changed cefepime/Flagyl to meropenem for GNR in his blood cultures 09/04 and will continue vancomycin. Patient currently was not well controlled on max Cardizem and cardiology initiated amiodarone. Patient still is very tachycardic. Patient is hypomagnesemic and we will replete his Mg and recheck level. We will give the patient additional to complete resolve LR this afternoon. Patient has a standing order per [facility] to bolus the patient with LR for CVP goal of 10-12. This morning he is hyperchlormeic, metabolic acidotic (bicarb drip initiated) and his BUN/ creatinine slightly elevated. Patient still remains lactic acidotic. 10/29: Patient's blood culture speciated to Proteus and his tracheal aspirate is MRSA. He is currently on ceftriaxone, Flagyl and vancomycin. Patient heart rate consistently is 110-150s and cardiology has given him an amiodarone bolus today and he remains on amiodarone drip. He looks much started on IV digoxin. This morning 4 L LR bolus was ordered and we will bolus an additional 4 L of LR this afternoon. Patient still has lactic acidosis, metabolic acidosis, leukocytosis and hyperchloremia. On examination this morning patient is more edematous and he remains on Levophed and amnio drip. 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 Remains on amio, levo and sedated with fentanyl. He is hypokalemic today which was repleted, h/h 02/18 and he is being type and crossed today with 2 units PRBC ordered to be transfused. Plt drop noted, heparin discontinued and HIT ordered. Bicarb gtt discontinued. No acute events overnight. 10/31: Patient hypomagnesemia today which was repleted and cardiology has changed his IV amiodarone to p.o. Patient will get albumin per [facility]. At the time my examination patient is on assist control 450/20/6/0.40. 11/03: At the time my examination patient is on assist control 450/20/6/0.25 and sedated with fentanyl and on Levophed at 4.Patient's leukocytosis is improving he received Albumin this weekend. Patient is hypokalemic, hypomagnesemic, hypocalcemic today. We will repeat his electrolytes and recheck a BMP in the a.m. Patient received 2 units PRBC on 10/30 and his hemoglobin has been trending down. We will recheck in the a.m. 11/04: At the time of my examination patient was on Levophed 3 mcg and on VZV/CPAP 450/20/6/0.35. Patient still has leukocytosis, respiratory alkalosis, hyponatremia, hypochloremia, hypocalcemia. Today his magnesium and potassium repleted with bolus of potassium 4/magnesium 2. He received 60 mcg KCl p.o., 40 mEq of KCl IV and 2 g of magnesium sulfate. We will recheck BMP and mag and a.m. Surgery has deemed the patient to unstable for further debulking. We also consulted vascular surgery for PVD as patient has discoloration to BLE /feet. 11/05: Vascular surgery will obtain bilateral lower extremity arterial duplex to evaluate arterial flow and recommends adding as FWF to tube feedings in assisting to wean off of vasopressors. Patient has hypokalemia, hypophosphatemia and normal to low magnesium. Magnesium, potassium and phosphate have been repleted. Patient still remains on ventilator support but on CPAP trial this morning. Patient HIT is still pending. This morning at the time of my examination patient was on assist-control 450/20/6/0.35 and he tolerated CPAP trial for 4 hours yesterday. He was on Levophed 0.5 and his rectal tube output was noted at 1000 mL. 11/06: This morning patient was on a CPAP trial and became hypoxic with SPO2 into the 80s and was switched back to assist control. Patient's vent settings are assist control tidal and 450, rate 20, PEEP 6, FiO2 0.25. Today patient has le ukocytosis, hypernatremia, hyperchloremia, hypocalcemia and hypophosphatemia. We will repeat a phosphate. His free water flushes have been increased and his magnesium has been repleted again. Patient has been started on Lovenox given improvement in his platelet count and on midodrine to help keep Levophed off. Infectious disease will continue p.o. vancomycin for total of 10 days. 11/07: Patient failed his CPAP trial yesterday and has been placed on CPAP 05/06 again this morning by RT. Overnight patient was rested on assist control tolerance by 50, rate of 20, pressure support 6 and FiO2 30%. His lab work is still pending for this morning. On repeat his phosphorus was 4.50 yesterday and repletion was discontinued. 11/08/2020; patient is off pressors currently on midodrine. Patient is on ceftriaxone and vancomycin. Patient is on assist control. Patient was evaluated by vascular surgery for peripheral vascular disease with SFA occlusion and recommend no intervention at this time. Prognosis is guarded. Patient is on 2 L of intranasal oxygen. We will put speech therapy evaluation. 11/09/2020; patient is currently off pressors and on midodrine. Continue with ceftriaxone, Flagyl and vancomycin per ID recommendation. Patient's blood culture grew Proteus mirabilis and tracheal aspirate grew MRSA. Patient was evaluated by vascular surgery for PVD with SFA occlusion and recommend no intervention at this time. Patient is on 2 L of intranasal oxygen. Currently patient is on tube feeding and follow speech therapy evaluation. 11/10: Overnight noted to have increased RR, ? Awaiting speech eval considering patient still on Tube feeds. Continue to monitor Hypernatremia. Antibiotics today will be D12/14. Will continue discharge planning on discussion with CM. Patient nonrebreather. Possibly back on congestive heart failure will need appropriate diuresis. Transferred back to [facility]. Discussed with forest patrolman and also with cardiology. 11/11: Remains lethargic remains in respiratory distress chest x-ray shows right lung collapse likely secondary to mucous plug. Discussed with forest patrolman will likely undergo a bronchoscopy today. We will also continue to monitor as we did suggest possible pleural effusion which we think may be less likely but if that seems to be the case we will send patient for thoracentesis following the bronchoscopy. Continue to monitor hemoglobin continue to monitor diarrhea antibiotics management per infectious disease. I did speak and update patient's cousin yesterday. Patient still with edema will await cardiology reevaluation for possible further diuresis. 11/12: Patient for Bronchoscopy today. Continue supportive care 11/13: Patient Clinically improving, tolerated Bronchoscopy yesterday. Awaiting am labs today. Overnight had bradycardia. Continue weaning oxygen. Discussed with sand car worker patient did have bronchial plug plus pleural effusion but will address. Will monitor serial x-rays. Discussed with nursing staff about my discussion with the brother. Continue supportive care. PER Brother,([phone] patient has had recurrent knee aspiration. Cardiology to re-evaluate today for Bradycardia noted overnight 11/14: Patient had a repeat bronchoscopy yesterday of the right lung due to mucous plug. [employer] Manager did have a conversation with the cousin as one of the considerations may be a trach due to recurrent pulmonary mucous plug and also significant debility for patient's overall medical condition. And his inability to maintain his airway. We will start him on a low round of D5 until diet is established. We will continue to monitor clinical status this morning. Plan discussed with nursing staff patient and also with lead installer 11/15: Continues to show some improvement, will check CXR today. Wean oxygen as tolerated, will likely need Trach per pulmonary. WBC improving, will monitor Sodium level. Patient on dopamin. 11/16: Patient overnight required intubation due to worsening respiratory failure secondary to complete opacification of the right lung again. This has appeared to cleared up this morning following the intuabation. Cousin advised of the finding, he will try to get us all his records because he believes that the patient has had a trach done before but is not sure. Started on Pressors due to hypotension 11/17: Today general surgery was consulted for trach/PEG placement, patient grew staph and tracheal aspirate and his cefepime was stopped and [facility] ordered a trial dose of Lasix. At the time my examination patient was on 1 mcg of fentanyl and dopamine 5 mcg/kg per cardiology. He has hyperchloremia and his lab work and is anemic today at 6.6/20.2. Patient received 1 unit PRBC. We will obtain a CBC in the a.m. 11/18: No acute events reported overnight, patient was given Lasix again by [facility], surgery has requested transfusion of one 1 unit PRBC despite H/H being 7.4/23.4 and plans to do a tracheostomy and plans to perform PEG and trach placement on 11/21/2020. We will follow up BMP and CBC in the a.m. Coags ordered. 11/19: Patient's next of kin still Mr. Buckley's next of kin/POA is still undecided about trach/PEG, surgeon aware. [facility] has given the patient another dose of Lasix and he was noted to be in atrial fibrillation with RVR this morning. Cardiology is aware and they have opted to resume amiodarone drip for rate control. We will obtain a BMP in the a.m. 11/20: At the time of examination patient remains on amiodarone 0.05 mcg and fentanyl 1 mcg on assist control tidal volume 500, rate 20, PEEP 6, FiO2 of 40%. Patient will have Lasix dose again. Dr. Quintanilla updated the family today. 11/21: Patient remains atrial fibrillation but is better rate controlled. Patient was taking to the OR for trach/PEG General surgery. No acute events reported overnight. Patient was given diuresed again and we will recheck a BMP in the a.m. 11/22. Patient tolerated tracheostomy. Alert no new concerns. Patient able to not that he is not in pain. 11/23 patient appears to be tolerating PEG tube feedings able to use tube feedin no new concerns over p.m. alert improving respiratory failure 11/24: No acute events overgnight. At the time my examination patient was on assist control tidal volume 500, rate 12, PEEP 6, FiO2 50%. Patient fentanyl drip discontinued and placed on IV push fentanyl 50 mcg every 2 hours. JENNI brooke right IJ. 11/25: Continue CPAP trials as tolerated, amiodarone decreased, midodrine and metoprolol initiated by cardiology. Patient had an episode of emesis however he denied being nauseous and did not have any emesis when trach suctioned. Patient remains afebrile. Midline was placed yesterday and IJ removed. Patient has leukocytosis but remains off of vasopressors, antibiotics and is febrile. At the time of examination patient is on assist control 21 500, rate 20, PEEP 6 and FiO2 45%. 11/26: Cardiology has increased his metoprolol and decreased his amiodarone due to soft blood pressures. Patient is adamant that he would like to go home. We will continue CPAP trials. 11/27: Patient CXR shows pulmonary edema and we will repeat Lasix. Continue CPAP trials 11/29: Patient on mechanical ventilation with s/p trach/PEG on 11/21/2020. Patient currently with PSV/CPAP mode FiO2 30%, PEEP of 6 and pressure support of 12. Continue vent weaning per pulmonary. Continue fentanyl and wean as tolerated. Tracheostomy care, secretion control and airway management. Gastrostomy tube care. Tube feedings with aspiration precautions. Continue midodrine and amiodarone. 11/30: Patient completed antibiotics. PSV trials failed yesterday. Continue PSV trials. Patient currently with PSV setting with FiO2 30%, pressure support 10 and PEEP of 6. Cont. Albuterol nebs plus CPT vest. Continue tube feedings with aspiration precautions. Tracheostomy care, secretion control and airway management. LTAC placement pending. 12/01: Continue CPAP trials. Awaiting placement. Continue current medical management. Hospitalist Physical - Constitutional Vitals: Temp Pulse Resp BP Pulse Ox 97.5 F L 103 H 23 138/79 97 12/01/20 12:00 12/01/20 17:33 12/01/20 16:01 12/01/20 17:33 12/01/20 16:01 General appearance: Present: no acute distress, other (Patient resting comfortably on mechanical ventilation, patient is agitated) - EENT Eyes: Present: PERRL ENT: poor dentition - Neck Neck: Absent: masses or JVD, cervical LAD - Respiratory Respiratory effort: normal Respiratory: bilateral: diminished - Cardiovascular Rhythm: regular Heart Sounds: Present: S1 & S2. Absent: systolic murmur, diastolic murmur - Extremities Extremities: no ischemia, pulses intact, pulses symmetrical, normal temperature, normal color (Discoloration to bilateral lower extremities, feet) Extremity abnormal: edema Peripheral Pulses: within normal limits - Abdominal General gastrointestinal: soft, non-tender, non-distended, normal bowel sounds - Integumentary Integumentary: Present: warm, dry - Psychiatric Psychiatric: agitated - Neurologic Neurologic: no focal deficits HEART Score - HEART Score EKG: Non-specific Age: > 65 Risk factors: > 3 risk factors or hx of atherosclerotic disease Troponin: Troponin T 0.123 ng/mL (0.00-0.029) H* 11/13/20 23:15 Troponin: < normal limit - Critical Actions Critical Actions: 4-6 pts:12-16.6% risk of adverse cardiac event. Should be admitted Results - Labs CBC & Chem 7: 11/30/20 05:14 11/30/20 05:14 Labs: Laboratory Last Values WBC 15.6 K/mm3 (4.5-11.0) H 11/30/20 05:14 RBC 2.46 M/mm3 (3.65-5.03) L 11/30/20 05:14 Hgb 7.7 gm/dl (11.8-15.2) L 11/30/20 05:14 Hct 23.8 % (35.5-45.6) L 11/30/20 05:14 MCV 97 fl (84-94) H 11/30/20 05:14 MCH 31 pg (28-32) 11/30/20 05:14 MCHC 32 % (32-34) 11/30/20 05:14 RDW 17.2 % (13.2-15.2) H 11/30/20 05:14 Plt Count 407 K/mm3 (140-440) 11/30/20 05:14 Lymph % (Auto) 9.5 % (13.4-35.0) L 11/30/20 05:14 [place] % (Auto) 10.3 % (0.0-7.3) H 11/30/20 05:14 Eos % (Auto) 0.5 % (0.0-4.3) 11/30/20 05:14 Baso % (Auto) 0.4 % (0.0-1.8) 11/30/20 05:14 Lymph # (Auto) 1.5 K/mm3 (1.2-5.4) 11/30/20 05:14 [place] # (Auto) 1.6 K/mm3 (0.0-0.8) H 11/30/20 05:14 Eos # (Auto) 0.1 K/mm3 (0.0-0.4) 11/30/20 05:14 Baso # (Auto) 0.1 K/mm3 (0.0-0.1) 11/30/20 05:14 Add Manual Diff Complete 11/23/20 10:23 Total Counted 100 11/23/20 10:23 Seg Neutrophils % 79.3 % (40.0-70.0) H 11/30/20 05:14 Seg Neuts % (Manual) 94.0 % (40.0-70.0) H 11/23/20 10:23 Band Neutrophils % 17.0 % 10/27/20 03:30 Lymphocytes % (Manual) 5.0 % (13.4-35.0) L 11/23/20 10:23 Monocytes % (Manual) 1.0 % (0.0-7.3) 11/23/20 10:23 Eosinophils % (Manual) 2.0 % (0.0-4.3) 10/27/20 03:30 Metamyelocytes % 4.0 % 10/27/20 03:30 Nucleated RBC % Not Reportable 11/23/20 10:23 Seg Neutrophils # 12.3 K/mm3 (1.8-7.7) H 11/30/20 05:14 Seg Neutrophils # Man 10.6 K/mm3 (1.8-7.7) H 11/23/20 10:23 Band Neutrophils # 0.0 K/mm3 11/23/20 10:23 Lymphocytes # (Manual) 0.6 K/mm3 (1.2-5.4) L 11/23/20 10:23 Abs React Lymphs (Man) 0.0 K/mm3 11/23/20 10:23 Monocytes # (Manual) 0.1 K/mm3 (0.0-0.8) 11/23/20 10:23 Eosinophils # (Manual) 0.0 K/mm3 (0.0-0.4) 11/23/20 10:23 Basophils # (Manual) 0.0 K/mm3 (0.0-0.1) 11/23/20 10:23 Metamyelocytes # 0.0 K/mm3 11/23/20 10:23 Myelocytes # 0.0 K/mm3 11/23/20 10:23 Promyelocytes # 0.0 K/mm3 11/23/20 10:23 Blast Cells # 0.0 K/mm3 11/23/20 10:23 WBC Morphology Not Reportable 11/23/20 10:23 Hypersegmented Neuts Not Reportable 11/23/20 10:23 Hyposegmented Neuts Not Reportable 11/23/20 10:23 Hypogranular Neuts Not Reportable 11/23/20 10:23 Smudge Cells Not Reportable 11/23/20 10:23 Toxic Granulation Not Reportable 11/23/20 10:23 Toxic Vacuolation Not Reportable 11/23/20 10:23 Dohle Bodies Not Reportable 11/23/20 10:23 Pelger-Huet Anomaly Not Reportable 11/23/20 10:23 Kassi Rods Not Reportable 11/23/20 10:23 Platelet Estimate Consistent w auto 11/23/20 10:23 Clumped Platelets Not Reportable 11/23/20 10:23 Plt Clumps, EDTA Not Reportable 11/23/20 10:23 Large Platelets Not Reportable 11/23/20 10:23 Giant Platelets Not Reportable 11/23/20 10:23 Platelet Satelliting Not Reportable 11/23/20 10:23 Plt Morphology Comment Not Reportable 11/23/20 10:23 RBC Morphology Normal 11/23/20 10:23 Dimorphic RBCs Not Reportable 11/23/20 10:23 Polychromasia Not Reportable 11/23/20 10:23 Hypochromasia Not Reportable 11/23/20 10:23 Poikilocytosis Not Reportable 11/23/20 10:23 Anisocytosis Not Reportable 11/23/20 10:23 Microcytosis Not Reportable 11/23/20 10:23 Macrocytosis Not Reportable 11/23/20 10:23 Spherocytes Not Reportable 11/23/20 10:23 Pappenheimer Bodies Not Reportable 11/23/20 10:23 Sickle Cells Not Reportable 11/23/20 10:23 Target Cells Not Reportable 11/23/20 10:23 Tear Drop Cells Not Reportable 11/23/20 10:23 Ovalocytes Not Reportable 11/23/20 10:23 Helmet Cells Not Reportable 11/23/20 10:23 [place] Bodies Not Reportable 11/23/20 10:23 [place] Rings Not Reportable 11/23/20 10:23 Rhae Cells Not Reportable 11/23/20 10:23 Bite Cells Not Reportable 11/23/20 10:23 Crenated Cell Not Reportable 11/23/20 10:23 Elliptocytes Not Reportable 11/23/20 10:23 Acanthocytes (Spur) Not Reportable 11/23/20 10:23 Rouleaux Not Reportable 11/23/20 10:23 Hemoglobin C Crystals Not Reportable 11/23/20 10:23 Schistocytes Not Reportable 11/23/20 10:23 Malaria parasites Not Reportable 11/23/20 10:23 Richard Bodies Not Reportable 11/23/20 10:23 Hem Pathologist Commnt No 11/23/20 10:23 PT 14.7 Sec. (12.2-14.9) 11/19/20 06:36 INR 1.15 (0.87-1.13) H 11/19/20 06:36 APTT 27.9 Sec. (24.2-36.6) 10/26/20 17:25 Heparin Anti-Xa, Unfract Negative (Negative) 11/03/20 11:01 ABG pH 7.515 (7.320-7.450) H 11/28/20 03:56 POC ABG pCO2 38.5 mmHg (32.0-48.0) 11/28/20 03:56 ABG pCO2 43.4 mm Hg 11/19/20 Unknown POC ABG pO2 74.5 mmHg (83-108) L 11/28/20 03:56 ABG pO2 72.4 mm Hg (80.0-90.0) L 11/19/20 Unknown POC ABG HCO3 30.4 11/28/20 03:56 ABG HCO3 26.9 mmol/L (20.0-26.0) H 11/19/20 Unknown ABG O2 Saturation 95.8 (0-100) 11/28/20 03:56 ABG O2 Content 11.3 (0.0-44) 11/19/20 Unknown POC ABG Base Excess 6.9 11/28/20 03:56 ABG Base Excess 2.0 mmol/L (-2.0-3.0) 11/19/20 Unknown ABG Hemoglobin 8.4 (12.0-17.5) L 11/28/20 03:56 ABG Oxyhemoglobin 94.8 (94-98) 11/28/20 03:56 ABG Carboxyhemoglobin 2.0 % (0.0-5.0) 11/19/20 Unknown ABG Methemoglobin 0.3 (0.0-1.5) 11/28/20 03:56 ABG Sodium 136.5 mmol/L (136.0-145.0) 11/28/20 03:56 ABG Potassium 3.9 mmol/L (3.40-4.50) 11/28/20 03:56 ABG Chloride 104.0 mmol/L (98-107) 11/28/20 03:56 ABG Glucose 130 mg/dL (65-95) H 11/28/20 03:56 Oxyhemoglobin 94.1 % (95.0-99.0) L 11/19/20 Unknown Carboxyhemoglobin 0.7 (0.5-1.5) 11/28/20 03:56 FiO2 30 % 11/19/20 Unknown FiO2 % 30.0 11/28/20 03:56 Sodium 138 mmol/L (137-145) 11/30/20 05:14 Potassium 4.0 mmol/L (3.6-5.0) 11/30/20 05:14 Chloride 103.0 mmol/L (98-107) 11/30/20 05:14 Carbon Dioxide 30 mmol/L (22-30) 11/30/20 05:14 Anion Gap 9 mmol/L 11/30/20 05:14 BUN 21 mg/dL (9-20) H 11/30/20 05:14 Creatinine 0.4 mg/dL (0.8-1.3) L 11/30/20 05:14 Estimated GFR > 60 ml/min 11/30/20 05:14 BUN/Creatinine Ratio 53 % 11/30/20 05:14 Glucose 126 mg/dL (75-100) H 11/30/20 05:14 POC Glucose 92 mg/dL (70-105) 12/01/20 11:25 Hemoglobin A1c 5.5 % (4-6) 10/27/20 04:42 Lactic Acid 4.30 mmol/L (0.7-2.0) H* 10/31/20 Unknown Calcium 7.7 mg/dL (8.4-10.2) L 11/30/20 05:14 Phosphorus 4.50 mg/dL (2.5-4.5) D 11/06/20 13:03 Magnesium 1.70 mg/dL (1.7-2.3) 11/21/20 09:47 Total Bilirubin < 0.20 mg/dL (0.1-1.2) 11/27/20 05:55 AST 8 units/L (5-40) 11/27/20 05:55 ALT 8 units/L (7-56) 11/27/20 05:55 Alkaline Phosphatase 87 units/L (35-129) 11/27/20 05:55 Total Creatine Kinase 31 units/L (55-170) L 10/26/20 17:28 Troponin T 0.123 ng/mL (0.00-0.029) H* 11/13/20 23:15 Total Protein 6.1 g/dL (6.3-8.2) L 11/27/20 05:55 Albumin 1.7 g/dL (3.9-5) L 11/27/20 05:55 Albumin/Globulin Ratio 0.4 % 11/27/20 05:55 Triglycerides 190 mg/dL (2-149) H 10/26/20 17:25 Cholesterol 92 mg/dL (50-199) 10/26/20 17:25 LDL Cholesterol Direct 33 mg/dL (50-130) L 10/26/20 17:25 HDL Cholesterol 18 mg/dL (40-59) L 10/26/20 17:25 Cholesterol/HDL Ratio 5.11 % 10/26/20 17:25 Serotonin Release Assay See scanned results 11/03/20 11:01 TSH 1.490 mlU/mL (0.270-4.200) 10/26/20 17:28 Arterial Blood Glucose 130 mg/dL (65-95) H 11/28/20 03:56 Arterial Blood Ionized Calcium 4.5 mg/dL (4.6-5.3) L 11/28/20 03:56 Urine Color Yellow (Yellow) 10/27/20 Unknown Urine Turbidity Turbid (Clear) 10/27/20 Unknown Urine pH 8.0 (5.0-7.0) H 10/27/20 Unknown Ur Specific [place] 1.020 (1.003-1.030) 10/27/20 Unknown Urine Protein >500 mg/dL (Negative) 10/27/20 Unknown Urine Glucose (UA) Neg mg/dL (Negative) 10/27/20 Unknown Urine Ketones Neg mg/dL (Negative) 10/27/20 Unknown Urine Blood Sm (Negative) 10/27/20 Unknown Urine Nitrite Neg (Negative) 10/27/20 Unknown Urine Bilirubin Neg (Negative) 10/27/20 Unknown Urine Urobilinogen < 2.0 mg/dL (<2.0) 10/27/20 Unknown Ur Leukocyte Esterase Mod (Negative) 10/27/20 Unknown Urine WBC (Auto) > 182.0 /HPF (0.0-6.0) H 10/27/20 Unknown Urine RBC (Auto) 35.0 /HPF (0.0-6.0) 10/27/20 Unknown Urine WBC Clumps 3+ /HPF 10/27/20 Unknown Urine Mucus 3+ /HPF 10/27/20 Unknown Urine Yeast (Budding) 3+ /HPF 10/27/20 Unknown Vancomycin Trough 18.0 ug/mL (5.0-20.0) 11/19/20 09:06 Salicylates < 0.3 mg/dL (2.8-20.0) L 10/26/20 17:28 Acetaminophen 5.0 ug/mL (10.0-30.0) L 10/26/20 17:28 Heparin-induced Plt Ab Negative (Negative) 11/03/20 11:01 UF Heparin High Dose 0 % Release 11/03/20 11:01 MOISES UFH Low Dose 0.1 2 % Release 11/03/20 11:01 MOISES UFH Low Dose 0.5 0 % Release 11/03/20 11:01 Coronavirus (PCR) Negative (Negative) 10/27/20 Unknown Blood Type O POSITIVE 11/17/20 11:10 Antibody Screen Negative 11/17/20 11:10 Crossmatch See Detail 11/17/20 11:10 Rivas/IV: Voiding Method Indwelling Catheter Active Medications - Current Medications Current Medications: Generic Name Dose Route Start Last Admin Trade Name Freq PRN Reason Stop Dose Admin Acetaminophen 650 mg 10/26/20 22:22 11/30/20 12:01 Acetaminophen 325 Mg Tab PO 650 mg Q4H PRN Administration Pain MILD(1-3)/Fever >100.5/TIERNEY Albuterol 2.5 mg 11/11/20 14:00 12/01/20 15:02 Albuterol 2.5 Mg/3 Ml Nebu IH Not Given TIDRT MARSHALL Amiodarone HCl 200 mg 11/25/20 10:00 12/01/20 09:43 Amiodarone 200 Mg Tab PO 200 mg BID MARSHALL Administration Lipase/Protease/Amylase 1 each 10/28/20 13:18 Lipase 10,500/Protease 25,000/Amylase 43,750 (Units) Dr Cap FEEDTUBE PRN PRN For Clogged Feeding Tube Enoxaparin Sodium 40 mg 11/22/20 22:00 11/30/20 21:04 Enoxaparin 40 Mg/0.4 Ml Inj SUB-Q 40 mg QDAY@2200 MARSHALL Administration Protocol Famotidine 20 mg 11/24/20 22:00 12/01/20 09:43 Famotidine 20 Mg Tab PO 20 mg BID MARSHALL Administration Fentanyl 50 mcg 11/15/20 22:30 11/28/20 01:00 Fentanyl 100 Mcg/2 Ml Inj IV 50 mcg Q10MIN PRN Administration ANALGESIA Hydrophilic Ointment 1 applic 11/15/20 22:30 Lip Therapy Vaseline TP Q2HR PRN Dry Lips Norepinephrine 4 mg in 250 mls @ 7.5 mls/hr 11/15/20 23:45 11/17/20 01:37 Levophed Drip 4 Mg/Ns 250 Ml IV 0 mcg/min TITR MARSHALL 0 mls/hr Titration Protocol 2 MCG/MIN Metoprolol Tartrate 12.5 mg 11/26/20 12:00 12/01/20 17:33 Metoprolol Tartrate 25 Mg Tab PO 12.5 mg Q6HR MARSHALL Administration Midodrine 10 mg 11/06/20 12:00 12/01/20 16:31 Midodrine 5 Mg Tab PO 10 mg TID@0800,1200,1600 MARSHALL Administration Multi-Ingred Cream/Lotion/Oil/Oint 1 applic 11/15/20 22:30 Mineral Oil/Petrolatum, White Ophth Oint 3.5 Gm OU Q4HR PRN Dry Eye(s) Simple Syrup 15 ml 10/28/20 13:18 11/10/20 16:01 Simple Syrup 15 Ml FEEDTUBE 15 ml PRN PRN Administration Hypoglycemia Simple Syrup 30 ml 10/28/20 13:18 Simple Syrup 15 Ml FEEDTUBE PRN PRN Hypoglycemia Sodium Bicarbonate 325 mg 10/28/20 13:18 Sodium Bicarbonate 325 Mg Tab FEEDTUBE PRN PRN For Clogged Feeding Tube Sodium Hypochlorite 1 applic 10/28/20 10:00 12/01/20 09:44 Sodium Hypochlorite, [place]'s 1/2 Strength (0.25%) 473 Ml Topical Soln TP 1 applicatio BID MARSHALL Administration Nutrition/Malnutrition Assess - Dietary Evaluation Nutrition/Malnutrition Findings: Nutrition Notes Start: 10/27/20 09:15 Freq: Status: Active Protocol: Document 11/27/20 14:29 CW (Rec: 11/27/20 14:37 CW [id number]) Nutrition Notes Initial or Follow up Reassessment Current Diagnosis Acute Kidney Injury,Decubitus( Pressure Ulcer),Sepsis, Hypertension,Respiratory Failure,Hyperlipidemia Other Pertinent Diagnosis AMS, MRSA, Encephalopathy, [place] Acidosis, pneu ,FTT Current Diet Vital AF at 70 ml/hr Labs/Tests reviewed Pertinent Medications reviewed Height 6 ft 2 in Weight 85 kg [place] Body Weight (kg) 86.36 BMI 24.0 Weight Status Obese Subjective/Other Information F/U for TF change, tolerance, and at goal. Pt remains on mechanical vent. TF Vital AF is running at goal of 70 ml/hr and is being well tolerated. No recent events of emesis Percent of energy/protein needs met: 100%/95% Burn Absent Trauma Absent GI Symptoms Diarrhea Difficulty In Swallowing,Chewing Skin Integrity/Comment Multiple pressure ulcer,1 infected Current % PO Negligible Minimum of two criteria No Fluid Accumulation Mild (non-severe) #2 Nutrition Diagnosis Increased nutrient needs ( specify in comment below) Diagnosis Progress(for reassessment Continues documentation) #1 Nutrition Diagnosis Inadequate oral intake Diagnosis Progress(for reassessment Continues documentation) Is patient on ventilator? Yes Is Patient Ambulatory and/or Out of Bed No REE-([facility]-confined to bed) Calculation Used for Recommendations [facility] Additional Notes protein needs: 133 - 167g(1.2 - 1.5 g/kgAdBW 111) Fluid needs 1 ml/kcal Nutrition Intervention Change Diet Order: Continue Nutrition Support: Vital AF at 70 ml/hr with a free water flush of 115 ml q4h Kcal 2,016 Protein (gm) 126 Fluid (mL) 1,362 Goal #1 TF change and tolerance Goal #2 Meet at least 75% EER and protein needs via TF Goal #3 wound healing Anticipated Discharge Needs: TF Follow-Up By: 12/02/20 Additional Comments F/U for TF tolerance
[2020-12-01] MEDS: ENOXAPARIN 40 MG/0.4 ML INJ SUB-Q SCH (21:24)
[2020-12-02] MEDS: METOPROLOL TARTRATE 25 MG TAB PO SCH ×5 (00:57→19:54)
--- NOTE | 2020-12-02 05:15 | XRay Report ---
CHEST 1 VIEW INDICATION / CLINICAL INFORMATION: hypoxia. COMPARISON: Chest radiograph 11/28/2020 FINDINGS: SUPPORT DEVICES: Stable position of tracheostomy. HEART / MEDIASTINUM: Stable. LUNGS / PLEURA: Moderate bilateral airspace opacities appear slightly worsened compared with prior ex amination. No pneumothorax. ADDITIONAL FINDINGS: No significant additional findings. IMPRESSION: 1. Slight worsening of moderate bilateral airspace opacities. Signer Name: Cassidy Copeland MD Signed: 12/02/2020 5:11 AM Workstation Name: [employer]
[2020-12-02] MEDS: ALBUTEROL 2.5 MG/3 ML NEBU IH SCH ×3 (08:23→21:37)
[2020-12-02] MEDS: MIDODRINE 5 MG TAB PO SCH ×3 (08:49→16:02)
[2020-12-02] MEDS: carBAMazepine 200 MG TAB PO SCH ×3 (09:49→19:54)
[2020-12-02] MEDS: FUROSEMIDE 20 MG/2 ML INJ IV SCH (09:49)
[2020-12-02] MEDS: FAMOTIDINE 20 MG TAB PO SCH ×2 (09:49→21:48)
[2020-12-02] MEDS: AMIODARONE 200 MG TAB PO SCH ×2 (09:51→21:47)
[2020-12-02] MEDS: SODIUM HYPOCHLORITE, DAKIN'S 1/2 STRENGTH (0.25%) 473 ML TOPICAL SOLN TP SCH ×2 (09:51→21:48)
--- NOTE | 2020-12-02 09:57 | Progress Note ---
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 Urine WBC (Auto) Vancomycin Trough Salicylates Acetaminophen Crossmatch 10/30/20 10/30/20 10/30/20 09:30 11:40 17:51 WBC RBC Hgb Hct MCV MCH MCHC RDW Plt Count Lymph % (Auto) [place] % (Auto) [place] # (Auto) Seg Neutrophils % Seg Neuts % (Manual) Lymphocytes % (Manual) Nucleated RBC % Seg Neutrophils # Seg Neutrophils # Man Lymphocytes # (Manual) Monocytes # (Manual) PT INR ABG pH POC ABG pCO2 POC ABG pO2 ABG pO2 ABG HCO3 ABG O2 Saturation ABG Base Excess ABG Hemoglobin ABG Oxyhemoglobin ABG Sodium ABG Potassium ABG Chloride ABG Glucose Oxyhemoglobin Carboxyhemoglobin Sodium Potassium Chloride Carbon Dioxide BUN Creatinine Glucose POC Glucose 183 H 136 H Lactic Acid Calcium Phosphorus Magnesium Total Creatine Kinase Troponin T Total Protein Albumin Triglycerides LDL Cholesterol Direct HDL Cholesterol Arterial Blood Glucose Arterial Blood Ionized Calcium Urine pH Urine WBC (Auto) Vancomycin Trough Salicylates Acetaminophen Crossmatch See Detail 10/30/20 10/30/20 10/30/20 18:53 23:25 Unknown WBC RBC Hgb Hct MCV MCH MCHC RDW Plt Count Lymph % (Auto) [place] % (Auto) [place] # (Auto) Seg Neutrophils % Seg Neuts % (Manual) Lymphocytes % (Manual) Nucleated RBC % Seg Neutrophils # Seg Neutrophils # Man Lymphocytes # (Manual) Monocytes # (Manual) PT INR ABG pH POC ABG pCO2 POC ABG pO2 ABG pO2 ABG HCO3 ABG O2 Saturation ABG Base Excess ABG Hemoglobin ABG Oxyhemoglobin ABG Sodium ABG Potassium ABG Chloride ABG Glucose Oxyhemoglobin Carboxyhemoglobin Sodium Potassium Chloride Carbon Dioxide BUN Creatinine Glucose POC Glucose 130 H Lactic Acid Calcium Phosphorus Magnesium Total Creatine Kinase Troponin T Total Protein Albumin Triglycerides LDL Cholesterol Direct HDL Cholesterol Arterial Blood Glucose Arterial Blood Ionized Calcium Urine pH Urine WBC (Auto) Vancomycin Trough 21.4 H 22.0 H Salicylates Acetaminophen Crossmatch 10/30/20 10/31/20 10/31/20 Unknown 02:54 03:42 WBC 21.1 H 23.0 H RBC 2.36 L Hgb 7.3 L 11.4 L D Hct 22.7 L 34.1 L D MCV 96 H MCH MCHC RDW 17.1 H 16.2 H Plt Count 73 L 33 L Lymph % (Auto) [place] % (Auto) [place] # (Auto) Seg Neutrophils % Seg Neuts % (Manual) Lymphocytes % (Manual) Nucleated RBC % Seg Neutrophils # Seg Neutrophils # Man Lymphocytes # (Manual) Monocytes # (Manual) PT INR ABG pH 7.517 H POC ABG pCO2 25.7 L POC ABG pO2 52.3 L ABG pO2 ABG HCO3 ABG O2 Saturation ABG Base Excess ABG Hemoglobin ABG Oxyhemoglobin 90.8 L ABG Sodium ABG Potassium ABG Chloride 109.0 H ABG Glucose 147 H Oxyhemoglobin Carboxyhemoglobin Sodium Potassium Chloride Carbon Dioxide BUN Creatinine Glucose POC Glucose Lactic Acid Calcium Phosphorus Magnesium Total Creatine Kinase Troponin T Total Protein Albumin Triglycerides LDL Cholesterol Direct HDL Cholesterol Arterial Blood Glucose 147 H Arterial Blood Ionized Calcium 4.0 L Urine pH Urine WBC (Auto) Vancomycin Trough Salicylates Acetaminophen Crossmatch 10/31/20 10/31/20 10/31/20 04:37 04:37 05:08 WBC 21.7 H RBC Hgb Hct MCV MCH MCHC RDW 16.1 H Plt Count 39 L Lymph % (Auto) [place] % (Auto) [place] # (Auto) Seg Neutrophils % Seg Neuts % (Manual) Lymphocytes % (Manual) Nucleated RBC % Seg Neutrophils # Seg Neutrophils # Man Lymphocytes # (Manual) Monocytes # (Manual) PT INR ABG pH POC ABG pCO2 POC ABG pO2 ABG pO2 ABG HCO3 ABG O2 Saturation ABG Base Excess ABG Hemoglobin ABG Oxyhemoglobin ABG Sodium ABG Potassium ABG Chloride ABG Glucose Oxyhemoglobin Carboxyhemoglobin Sodium Potassium Chloride 108.4 H Carbon Dioxide BUN 25 H Creatinine 0.5 L Glucose 140 H POC Glucose 140 H Lactic Acid Calcium 6.1 L Phosphorus Magnesium 1.50 L Total Creatine Kinase Troponin T Total Protein Albumin Triglycerides LDL Cholesterol Direct HDL Cholesterol Arterial Blood Glucose Arterial Blood Ionized Calcium Urine pH Urine WBC (Auto) Vancomycin Trough Salicylates Acetaminophen Crossmatch 10/31/20 10/31/20 10/31/20 11:12 18:50 23:21 WBC RBC Hgb Hct MCV MCH MCHC RDW Plt Count Lymph % (Auto) [place] % (Auto) [place] # (Auto) Seg Neutrophils % Seg Neuts % (Manual) Lymphocytes % (Manual) Nucleated RBC % Seg Neutrophils # Seg Neutrophils # Man Lymphocytes # (Manual) Monocytes # (Manual) PT INR ABG pH POC ABG pCO2 POC ABG pO2 ABG pO2 ABG HCO3 ABG O2 Saturation ABG Base Excess ABG Hemoglobin ABG Oxyhemoglobin ABG Sodium ABG Potassium ABG Chloride ABG Glucose Oxyhemoglobin Carboxyhemoglobin Sodium Potassium Chloride Carbon Dioxide BUN Creatinine Glucose POC Glucose 125 H 142 H 127 H Lactic Acid Calcium Phosphorus Magnesium Total Creatine Kinase Troponin T Total Protein Albumin Triglycerides LDL Cholesterol Direct HDL Cholesterol Arterial Blood Glucose Arterial Blood Ionized Calcium Urine pH Urine WBC (Auto) Vancomycin Trough Salicylates Acetaminophen Crossmatch 10/31/20 11/01/20 11/01/20 Unknown 03:40 04:21 WBC RBC Hgb Hct MCV MCH MCHC RDW Plt Count Lymph % (Auto) [place] % (Auto) [place] # (Auto) Seg Neutrophils % Seg Neuts % (Manual) Lymphocytes % (Manual) Nucleated RBC % Seg Neutrophils # Seg Neutrophils # Man Lymphocytes # (Manual) Monocytes # (Manual) PT INR ABG pH 7.489 H POC ABG pCO2 POC ABG pO2 ABG pO2 77.2 L ABG HCO3 ABG O2 Saturation ABG Base Excess ABG Hemoglobin 7.1 L ABG Oxyhemoglobin ABG Sodium ABG Potassium ABG Chloride ABG Glucose Oxyhemoglobin Carboxyhemoglobin Sodium Potassium 3.1 L Chloride 107.1 H Carbon Dioxide BUN 25 H Creatinine 0.5 L Glucose 148 H POC Glucose Lactic Acid 4.30 H* Calcium 6.0 L Phosphorus Magnesium Total Creatine Kinase Troponin T Total Protein Albumin Triglycerides LDL Cholesterol Direct HDL Cholesterol Arterial Blood Glucose Arterial Blood Ionized Calcium Urine pH Urine WBC (Auto) Vancomycin Trough Salicylates Acetaminophen Crossmatch 11/01/20 11/01/20 11/01/20 05:13 11:42 17:38 WBC RBC Hgb Hct MCV MCH MCHC RDW Plt Count Lymph % (Auto) [place] % (Auto) [place] # (Auto) Seg Neutrophils % Seg Neuts % (Manual) Lymphocytes % (Manual) Nucleated RBC % Seg Neutrophils # Seg Neutrophils # Man Lymphocytes # (Manual) Monocytes # (Manual) PT INR ABG pH POC ABG pCO2 POC ABG pO2 ABG pO2 ABG HCO3 ABG O2 Saturation ABG Base Excess ABG Hemoglobin ABG Oxyhemoglobin ABG Sodium ABG Potassium ABG Chloride ABG Glucose Oxyhemoglobin Carboxyhemoglobin Sodium Potassium Chloride Carbon Dioxide BUN Creatinine Glucose POC Glucose 139 H 139 H 161 H Lactic Acid Calcium Phosphorus Magnesium Total Creatine Kinase Troponin T Total Protein Albumin Triglycerides LDL Cholesterol Direct HDL Cholesterol Arterial Blood Glucose Arterial Blood Ionized Calcium Urine pH Urine WBC (Auto) Vancomycin Trough Salicylates Acetaminophen Crossmatch 11/01/20 11/01/20 11/02/20 23:20 Unknown 04:30 WBC 18.2 H RBC 3.27 L Hgb 9.9 L Hct 30.1 L D MCV MCH MCHC RDW 15.7 H Plt Count 34 L Lymph % (Auto) [place] % (Auto) [place] # (Auto) Seg Neutrophils % Seg Neuts % (Manual) Lymphocytes % (Manual) Nucleated RBC % Seg Neutrophils # Seg Neutrophils # Man Lymphocytes # (Manual) Monocytes # (Manual) PT INR ABG pH 7.456 H POC ABG pCO2 POC ABG pO2 ABG pO2 ABG HCO3 ABG O2 Saturation ABG Base Excess ABG Hemoglobin 9.2 L ABG Oxyhemoglobin ABG Sodium ABG Potassium ABG Chloride ABG Glucose Oxyhemoglobin Carboxyhemoglobin Sodium Potassium Chloride Carbon Dioxide BUN Creatinine Glucose POC Glucose 168 H Lactic Acid Calcium Phosphorus Magnesium Total Creatine Kinase Troponin T Total Protein Albumin Triglycerides LDL Cholesterol Direct HDL Cholesterol Arterial Blood Glucose Arterial Blood Ionized Calcium Urine pH Urine WBC (Auto) Vancomycin Trough Salicylates Acetaminophen Crossmatch 11/02/20 11/02/20 11/02/20 06:29 08:40 08:40 WBC 16.6 H RBC 2.87 L Hgb 8.8 L Hct 26.6 L MCV MCH MCHC RDW 15.8 H Plt Count 30 L Lymph % (Auto) [place] % (Auto) [place] # (Auto) Seg Neutrophils % Seg Neuts % (Manual) 97.0 H Lymphocytes % (Manual) 2.0 L Nucleated RBC % 1.0 H Seg Neutrophils # Seg Neutrophils # Man 16.1 H Lymphocytes # (Manual) 0.3 L Monocytes # (Manual) PT INR ABG pH POC ABG pCO2 POC ABG pO2 ABG pO2 ABG HCO3 ABG O2 Saturation ABG Base Excess ABG Hemoglobin ABG Oxyhemoglobin ABG Sodium ABG Potassium ABG Chloride ABG Glucose Oxyhemoglobin Carboxyhemoglobin Sodium Potassium 2.4 L* D Chloride 110.2 H Carbon Dioxide BUN 23 H Creatinine 0.4 L Glucose 154 H POC Glucose 131 H Lactic Acid Calcium 6.1 L Phosphorus Magnesium 1.50 L Total Creatine Kinase Troponin T Total Protein Albumin Triglycerides LDL Cholesterol Direct HDL Cholesterol Arterial Blood Glucose Arterial Blood Ionized Calcium Urine pH Urine WBC (Auto) Vancomycin Trough Salicylates Acetaminophen Crossmatch 11/02/20 11/02/20 11/02/20 13:17 17:25 18:05 WBC RBC Hgb Hct MCV MCH MCHC RDW Plt Count Lymph % (Auto) [place] % (Auto) [place] # (Auto) Seg Neutrophils % Seg Neuts % (Manual) Lymphocytes % (Manual) Nucleated RBC % Seg Neutrophils # Seg Neutrophils # Man Lymphocytes # (Manual) Monocytes # (Manual) PT INR ABG pH POC ABG pCO2 POC ABG pO2 ABG pO2 ABG HCO3 ABG O2 Saturation ABG Base Excess ABG Hemoglobin ABG Oxyhemoglobin ABG Sodium ABG Potassium ABG Chloride ABG Glucose Oxyhemoglobin Carboxyhemoglobin Sodium Potassium 3.1 L D Chloride Carbon Dioxide BUN Creatinine Glucose POC Glucose 134 H 140 H Lactic Acid Calcium Phosphorus Magnesium Total Creatine Kinase Troponin T Total Protein Albumin Triglycerides LDL Cholesterol Direct HDL Cholesterol Arterial Blood Glucose Arterial Blood Ionized Calcium Urine pH Urine WBC (Auto) Vancomycin Trough Salicylates Acetaminophen Crossmatch 11/02/20 11/03/20 11/03/20 23:36 04:15 05:07 WBC RBC Hgb Hct MCV MCH MCHC RDW Plt Count Lymph % (Auto) [place] % (Auto) [place] # (Auto) Seg Neutrophils % Seg Neuts % (Manual) Lymphocytes % (Manual) Nucleated RBC % Seg Neutrophils # Seg Neutrophils # Man Lymphocytes # (Manual) Monocytes # (Manual) PT INR ABG pH POC ABG pCO2 POC ABG pO2 ABG pO2 ABG HCO3 ABG O2 Saturation ABG Base Excess ABG Hemoglobin ABG Oxyhemoglobin ABG Sodium ABG Potassium ABG Chloride ABG Glucose Oxyhemoglobin Carboxyhemoglobin Sodium Potassium 3.0 L Chloride 111.8 H Carbon Dioxide BUN 24 H Creatinine 0.3 L Glucose 141 H POC Glucose 127 H 156 H Lactic Acid Calcium 5.8 L* Phosphorus Magnesium 1.60 L Total Creatine Kinase Troponin T Total Protein Albumin Triglycerides LDL Cholesterol Direct HDL Cholesterol Arterial Blood Glucose Arterial Blood Ionized Calcium Urine pH Urine WBC (Auto) Vancomycin Trough Salicylates Acetaminophen Crossmatch 11/03/20 11/03/20 11/04/20 11:14 17:31 00:17 WBC RBC Hgb Hct MCV MCH MCHC RDW Plt Count Lymph % (Auto) [place] % (Auto) [place] # (Auto) Seg Neutrophils % Seg Neuts % (Manual) Lymphocytes % (Manual) Nucleated RBC % Seg Neutrophils # Seg Neutrophils # Man Lymphocytes # (Manual) Monocytes # (Manual) PT INR ABG pH POC ABG pCO2 POC ABG pO2 ABG pO2 ABG HCO3 ABG O2 Saturation ABG Base Excess ABG Hemoglobin ABG Oxyhemoglobin ABG Sodium ABG Potassium ABG Chloride ABG Glucose Oxyhemoglobin Carboxyhemoglobin Sodium Potassium Chloride Carbon Dioxide BUN Creatinine Glucose POC Glucose 137 H 151 H 156 H Lactic Acid Calcium Phosphorus Magnesium Total Creatine Kinase Troponin T Total Protein Albumin Triglycerides LDL Cholesterol Direct HDL Cholesterol Arterial Blood Glucose Arterial Blood Ionized Calcium Urine pH Urine WBC (Auto) Vancomycin Trough Salicylates Acetaminophen Crossmatch 11/04/20 11/04/20 11/04/20 05:34 05:34 11:16 WBC 21.9 H RBC 2.67 L Hgb 8.2 L Hct 24.8 L MCV MCH MCHC RDW 15.6 H Plt Count 48 L Lymph % (Auto) [place] % (Auto) [place] # (Auto) Seg Neutrophils % Seg Neuts % (Manual) Lymphocytes % (Manual) Nucleated RBC % Seg Neutrophils # Seg Neutrophils # Man Lymphocytes # (Manual) Monocytes # (Manual) PT INR ABG pH POC ABG pCO2 POC ABG pO2 ABG pO2 ABG HCO3 ABG O2 Saturation ABG Base Excess ABG Hemoglobin ABG Oxyhemoglobin ABG Sodium ABG Potassium ABG Chloride ABG Glucose Oxyhemoglobin Carboxyhemoglobin Sodium 146 H Potassium Chloride 114.6 H Carbon Dioxide BUN 29 H Creatinine 0.3 L Glucose 173 H POC Glucose 156 H Lactic Acid Calcium 5.7 L* Phosphorus Magnesium Total Creatine Kinase Troponin T Total Protein Albumin Triglycerides LDL Cholesterol Direct HDL Cholesterol Arterial Blood Glucose Arterial Blood Ionized Calcium Urine pH Urine WBC (Auto) Vancomycin Trough Salicylates Acetaminophen Crossmatch 11/04/20 11/04/20 11/04/20 11:42 17:18 23:12 WBC RBC Hgb Hct MCV MCH MCHC RDW Plt Count Lymph % (Auto) [place] % (Auto) [place] # (Auto) Seg Neutrophils % Seg Neuts % (Manual) Lymphocytes % (Manual) Nucleated RBC % Seg Neutrophils # Seg Neutrophils # Man Lymphocytes # (Manual) Monocytes # (Manual) PT INR ABG pH 7.525 H POC ABG pCO2 28.9 L POC ABG pO2 64.3 L ABG pO2 ABG HCO3 ABG O2 Saturation ABG Base Excess ABG Hemoglobin 8.2 L ABG Oxyhemoglobin ABG Sodium ABG Potassium 3.3 L ABG Chloride 115.0 H ABG Glucose 165 H Oxyhemoglobin Carboxyhemoglobin Sodium Potassium Chloride Carbon Dioxide BUN Creatinine Glucose POC Glucose 144 H 155 H Lactic Acid Calcium Phosphorus Magnesium Total Creatine Kinase Troponin T Total Protein Albumin Triglycerides LDL Cholesterol Direct HDL Cholesterol Arterial Blood Glucose 165 H Arterial Blood Ionized Calcium 4.0 L Urine pH Urine WBC (Auto) Vancomycin Trough Salicylates Acetaminophen Crossmatch 11/05/20 11/05/20 11/05/20 04:48 04:48 05:57 WBC 17.4 H RBC 2.49 L Hgb 7.8 L Hct 23.5 L MCV MCH MCHC RDW 16.0 H Plt Count 69 L Lymph % (Auto) [place] % (Auto) [place] # (Auto) Seg Neutrophils % Seg Neuts % (Manual) Lymphocytes % (Manual) Nucleated RBC % Seg Neutrophils # Seg Neutrophils # Man Lymphocytes # (Manual) Monocytes # (Manual) PT INR ABG pH POC ABG pCO2 POC ABG pO2 ABG pO2 ABG HCO3 ABG O2 Saturation ABG Base Excess ABG Hemoglobin ABG Oxyhemoglobin ABG Sodium ABG Potassium ABG Chloride ABG Glucose Oxyhemoglobin Carboxyhemoglobin Sodium 147 H Potassium 3.5 L Chloride 115.4 H Carbon Dioxide BUN 34 H Creatinine 0.3 L Glucose 154 H POC Glucose 146 H Lactic Acid Calcium 6.1 L Phosphorus 2.00 L Magnesium Total Creatine Kinase Troponin T Total Protein Albumin Triglycerides LDL Cholesterol Direct HDL Cholesterol Arterial Blood Glucose Arterial Blood Ionized Calcium Urine pH Urine WBC (Auto) Vancomycin Trough Salicylates Acetaminophen Crossmatch 11/05/20 11/05/20 11/05/20 11:33 17:52 23:37 WBC RBC Hgb Hct MCV MCH MCHC RDW Plt Count Lymph % (Auto) [place] % (Auto) [place] # (Auto) Seg Neutrophils % Seg Neuts % (Manual) Lymphocytes % (Manual) Nucleated RBC % Seg Neutrophils # Seg Neutrophils # Man Lymphocytes # (Manual) Monocytes # (Manual) PT INR ABG pH POC ABG pCO2 POC ABG pO2 ABG pO2 ABG HCO3 ABG O2 Saturation ABG Base Excess ABG Hemoglobin ABG Oxyhemoglobin ABG Sodium ABG Potassium ABG Chloride ABG Glucose Oxyhemoglobin Carboxyhemoglobin Sodium Potassium Chloride Carbon Dioxide BUN Creatinine Glucose POC Glucose 144 H 136 H 151 H Lactic Acid Calcium Phosphorus Magnesium Total Creatine Kinase Troponin T Total Protein Albumin Triglycerides LDL Cholesterol Direct HDL Cholesterol Arterial Blood Glucose Arterial Blood Ionized Calcium Urine pH Urine WBC (Auto) Vancomycin Trough Salicylates Acetaminophen Crossmatch 11/06/20 11/06/20 11/06/20 05:36 06:45 06:45 WBC 15.0 H RBC 2.33 L Hgb 7.2 L Hct 22.1 L MCV 95 H MCH MCHC RDW 16.2 H Plt Count 103 L Lymph % (Auto) [place] % (Auto) [place] # (Auto) Seg Neutrophils % Seg Neuts % (Manual) Lymphocytes % (Manual) Nucleated RBC % Seg Neutrophils # Seg Neutrophils # Man Lymphocytes # (Manual) Monocytes # (Manual) PT INR ABG pH POC ABG pCO2 POC ABG pO2 ABG pO2 ABG HCO3 ABG O2 Saturation ABG Base Excess ABG Hemoglobin ABG Oxyhemoglobin ABG Sodium ABG Potassium ABG Chloride ABG Glucose Oxyhemoglobin Carboxyhemoglobin Sodium 148 H Potassium Chloride 118.2 H Carbon Dioxide BUN 32 H Creatinine 0.4 L Glucose 153 H POC Glucose 140 H Lactic Acid Calcium 6.4 L Phosphorus 0.90 L* D Magnesium Total Creatine Kinase Troponin T Total Protein 5.0 L Albumin 1.4 L Triglycerides LDL Cholesterol Direct HDL Cholesterol Arterial Blood Glucose Arterial Blood Ionized Calcium Urine pH Urine WBC (Auto) Vancomycin Trough Salicylates Acetaminophen Crossmatch 11/06/20 11/06/20 11/06/20 11:32 17:37 23:19 WBC RBC Hgb Hct MCV MCH MCHC RDW Plt Count Lymph % (Auto) [place] % (Auto) [place] # (Auto) Seg Neutrophils % Seg Neuts % (Manual) Lymphocytes % (Manual) Nucleated RBC % Seg Neutrophils # Seg Neutrophils # Man Lymphocytes # (Manual) Monocytes # (Manual) PT INR ABG pH POC ABG pCO2 POC ABG pO2 ABG pO2 ABG HCO3 ABG O2 Saturation ABG Base Excess ABG Hemoglobin ABG Oxyhemoglobin ABG Sodium ABG Potassium ABG Chloride ABG Glucose Oxyhemoglobin Carboxyhemoglobin Sodium Potassium Chloride Carbon Dioxide BUN Creatinine Glucose POC Glucose 132 H 133 H 145 H Lactic Acid Calcium Phosphorus Magnesium Total Creatine Kinase Troponin T Total Protein Albumin Triglycerides LDL Cholesterol Direct HDL Cholesterol Arterial Blood Glucose Arterial Blood Ionized Calcium Urine pH Urine WBC (Auto) Vancomycin Trough Salicylates Acetaminophen Crossmatch 11/07/20 11/07/20 11/07/20 12:55 16:45 16:45 WBC 12.0 H RBC 3.63 L Hgb 11.4 L D Hct MCV 104 H MCH MCHC 30 L RDW 18.0 H Plt Count 133 L Lymph % (Auto) [place] % (Auto) [place] # (Auto) Seg Neutrophils % Seg Neuts % (Manual) Lymphocytes % (Manual) Nucleated RBC % Seg Neutrophils # Seg Neutrophils # Man Lymphocytes # (Manual) Monocytes # (Manual) PT INR ABG pH POC ABG pCO2 POC ABG pO2 ABG pO2 ABG HCO3 ABG O2 Saturation ABG Base Excess ABG Hemoglobin 7.7 L ABG Oxyhemoglobin ABG Sodium ABG Potassium ABG Chloride ABG Glucose Oxyhemoglobin 94.9 L Carboxyhemoglobin Sodium 149 H Potassium Chloride 119.8 H Carbon Dioxide BUN 31 H Creatinine 0.4 L Glucose 130 H POC Glucose Lactic Acid Calcium 6.5 L Phosphorus Magnesium Total Creatine Kinase Troponin T Total Protein Albumin Triglycerides LDL Cholesterol Direct HDL Cholesterol Arterial Blood Glucose Arterial Blood Ionized Calcium Urine pH Urine WBC (Auto) Vancomycin Trough Salicylates Acetaminophen Crossmatch 11/07/20 11/08/20 11/08/20 17:23 00:12 06:11 WBC RBC Hgb Hct MCV MCH MCHC RDW Plt Count Lymph % (Auto) [place] % (Auto) [place] # (Auto) Seg Neutrophils % Seg Neuts % (Manual) Lymphocytes % (Manual) Nucleated RBC % Seg Neutrophils # Seg Neutrophils # Man Lymphocytes # (Manual) Monocytes # (Manual) PT INR ABG pH POC ABG pCO2 POC ABG pO2 ABG pO2 ABG HCO3 ABG O2 Saturation ABG Base Excess ABG Hemoglobin ABG Oxyhemoglobin ABG Sodium ABG Potassium ABG Chloride ABG Glucose Oxyhemoglobin Carboxyhemoglobin Sodium Potassium Chloride Carbon Dioxide BUN Creatinine Glucose POC Glucose 115 H 129 H 109 H Lactic Acid Calcium Phosphorus Magnesium Total Creatine Kinase Troponin T Total Protein Albumin Triglycerides LDL Cholesterol Direct HDL Cholesterol Arterial Blood Glucose Arterial Blood Ionized Calcium Urine pH Urine WBC (Auto) Vancomycin Trough Salicylates Acetaminophen Crossmatch 11/08/20 11/08/20 11/08/20 17:36 23:49 23:58 WBC RBC Hgb Hct MCV MCH MCHC RDW Plt Count Lymph % (Auto) [place] % (Auto) [place] # (Auto) Seg Neutrophils % Seg Neuts % (Manual) Lymphocytes % (Manual) Nucleated RBC % Seg Neutrophils # Seg Neutrophils # Man Lymphocytes # (Manual) Monocytes # (Manual) PT INR ABG pH POC ABG pCO2 POC ABG pO2 ABG pO2 ABG HCO3 ABG O2 Saturation ABG Base Excess ABG Hemoglobin ABG Oxyhemoglobin ABG Sodium ABG Potassium ABG Chloride ABG Glucose Oxyhemoglobin Carboxyhemoglobin Sodium Potassium Chloride Carbon Dioxide BUN Creatinine Glucose 138 H POC Glucose 38 L 36 L Lactic Acid Calcium Phosphorus Magnesium Total Creatine Kinase Troponin T Total Protein Albumin Triglycerides LDL Cholesterol Direct HDL Cholesterol Arterial Blood Glucose Arterial Blood Ionized Calcium Urine pH Urine WBC (Auto) Vancomycin Trough Salicylates Acetaminophen Crossmatch 11/09/20 11/09/20 11/09/20 05:33 06:00 06:00 WBC 13.1 H RBC 2.35 L Hgb 7.6 L D Hct 22.9 L D MCV 97 H MCH MCHC RDW 16.8 H Plt Count Lymph % (Auto) 9.1 L [place] % (Auto) [place] # (Auto) Seg Neutrophils % 84.8 H Seg Neuts % (Manual) Lymphocytes % (Manual) Nucleated RBC % Seg Neutrophils # 11.1 H Seg Neutrophils # Man Lymphocytes # (Manual) Monocytes # (Manual) PT INR ABG pH POC ABG pCO2 POC ABG pO2 ABG pO2 ABG HCO3 ABG O2 Saturation ABG Base Excess ABG Hemoglobin ABG Oxyhemoglobin ABG Sodium ABG Potassium ABG Chloride ABG Glucose Oxyhemoglobin Carboxyhemoglobin Sodium 150 H Potassium 3.4 L D Chloride 119.2 H Carbon Dioxide BUN 30 H Creatinine 0.4 L Glucose 137 H POC Glucose 58 L Lactic Acid Calcium 7.2 L Phosphorus Magnesium Total Creatine Kinase Troponin T Total Protein Albumin Triglycerides LDL Cholesterol Direct HDL Cholesterol Arterial Blood Glucose Arterial Blood Ionized Calcium Urine pH Urine WBC (Auto) Vancomycin Trough Salicylates Acetaminophen Crossmatch 11/09/20 11/09/20 11/10/20 06:08 22:16 13:46 WBC 16.1 H RBC 2.52 L Hgb 8.1 L Hct 25.2 L MCV 100 H MCH MCHC RDW 18.2 H Plt Count Lymph % (Auto) [place] % (Auto) [place] # (Auto) Seg Neutrophils % Seg Neuts % (Manual) 90.0 H Lymphocytes % (Manual) 3.0 L Nucleated RBC % Seg Neutrophils # Seg Neutrophils # Man 14.5 H Lymphocytes # (Manual) 0.5 L Monocytes # (Manual) 1.1 H PT INR ABG pH POC ABG pCO2 POC ABG pO2 ABG pO2 ABG HCO3 ABG O2 Saturation ABG Base Excess ABG Hemoglobin ABG Oxyhemoglobin ABG Sodium ABG Potassium ABG Chloride ABG Glucose Oxyhemoglobin Carboxyhemoglobin Sodium Potassium Chloride Carbon Dioxide BUN Creatinine Glucose POC Glucose 122 H 120 H Lactic Acid Calcium Phosphorus Magnesium Total Creatine Kinase Troponin T Total Protein Albumin Triglycerides LDL Cholesterol Direct HDL Cholesterol Arterial Blood Glucose Arterial Blood Ionized Calcium Urine pH Urine WBC (Auto) Vancomycin Trough Salicylates Acetaminophen Crossmatch 11/10/20 11/10/20 11/11/20 13:46 15:59 11:43 WBC RBC Hgb Hct MCV MCH MCHC RDW Plt Count Lymph % (Auto) [place] % (Auto) [place] # (Auto) Seg Neutrophils % Seg Neuts % (Manual) Lymphocytes % (Manual) Nucleated RBC % Seg Neutrophils # Seg Neutrophils # Man Lymphocytes # (Manual) Monocytes # (Manual) PT INR ABG pH POC ABG pCO2 POC ABG pO2 ABG pO2 ABG HCO3 ABG O2 Saturation ABG Base Excess ABG Hemoglobin ABG Oxyhemoglobin ABG Sodium ABG Potassium ABG Chloride ABG Glucose Oxyhemoglobin Carboxyhemoglobin Sodium 153 H Potassium Chloride 120.6 H Carbon Dioxide BUN 27 H Creatinine 0.3 L Glucose 112 H POC Glucose 40 L 124 H Lactic Acid Calcium 6.8 L Phosphorus Magnesium Total Creatine Kinase Troponin T Total Protein Albumin Triglycerides LDL Cholesterol Direct HDL Cholesterol Arterial Blood Glucose Arterial Blood Ionized Calcium Urine pH Urine WBC (Auto) Vancomycin Trough Salicylates Acetaminophen Crossmatch 11/11/20 11/11/20 11/11/20 14:38 14:38 14:38 WBC 13.8 H RBC 2.43 L Hgb 7.6 L Hct 24.0 L MCV 99 H MCH MCHC RDW 18.0 H Plt Count Lymph % (Auto) [place] % (Auto) [place] # (Auto) Seg Neutrophils % Seg Neuts % (Manual) Lymphocytes % (Manual) Nucleated RBC % Seg Neutrophils # Seg Neutrophils # Man Lymphocytes # (Manual) Monocytes # (Manual) PT 15.0 H INR 1.18 H ABG pH POC ABG pCO2 POC ABG pO2 ABG pO2 ABG HCO3 ABG O2 Saturation ABG Base Excess ABG Hemoglobin ABG Oxyhemoglobin ABG Sodium ABG Potassium ABG Chloride ABG Glucose Oxyhemoglobin Carboxyhemoglobin Sodium 154 H Potassium 3.1 L D Chloride 122.1 H Carbon Dioxide BUN 26 H Creatinine 0.4 L Glucose 140 H POC Glucose Lactic Acid Calcium 7.3 L Phosphorus Magnesium Total Creatine Kinase Troponin T Total Protein Albumin Triglycerides LDL Cholesterol Direct HDL Cholesterol Arterial Blood Glucose Arterial Blood Ionized Calcium Urine pH Urine WBC (Auto) Vancomycin Trough Salicylates Acetaminophen Crossmatch 11/11/20 11/11/20 11/12/20 18:39 18:42 00:03 WBC RBC Hgb Hct MCV MCH MCHC RDW Plt Count Lymph % (Auto) [place] % (Auto) [place] # (Auto) Seg Neutrophils % Seg Neuts % (Manual) Lymphocytes % (Manual) Nucleated RBC % Seg Neutrophils # Seg Neutrophils # Man Lymphocytes # (Manual) Monocytes # (Manual) PT INR ABG pH POC ABG pCO2 POC ABG pO2 ABG pO2 ABG HCO3 ABG O2 Saturation ABG Base Excess ABG Hemoglobin ABG Oxyhemoglobin ABG Sodium ABG Potassium ABG Chloride ABG Glucose Oxyhemoglobin Carboxyhemoglobin Sodium Potassium Chloride Carbon Dioxide BUN Creatinine Glucose POC Glucose 45 L 66 L 108 H Lactic Acid Calcium Phosphorus Magnesium Total Creatine Kinase Troponin T Total Protein Albumin Triglycerides LDL Cholesterol Direct HDL Cholesterol Arterial Blood Glucose Arterial Blood Ionized Calcium Urine pH Urine WBC (Auto) Vancomycin Trough Salicylates Acetaminophen Crossmatch 11/12/20 11/12/20 11/12/20 05:44 08:33 08:33 WBC 13.4 H RBC 2.35 L Hgb 7.5 L Hct 23.7 L MCV 101 H MCH MCHC RDW 19.7 H Plt Count Lymph % (Auto) [place] % (Auto) [place] # (Auto) Seg Neutrophils % Seg Neuts % (Manual) Lymphocytes % (Manual) Nucleated RBC % Seg Neutrophils # Seg Neutrophils # Man Lymphocytes # (Manual) Monocytes # (Manual) PT INR ABG pH POC ABG pCO2 POC ABG pO2 ABG pO2 ABG HCO3 ABG O2 Saturation ABG Base Excess ABG Hemoglobin ABG Oxyhemoglobin ABG Sodium ABG Potassium ABG Chloride ABG Glucose Oxyhemoglobin Carboxyhemoglobin Sodium 154 H Potassium 2.9 L* Chloride 121.4 H Carbon Dioxide BUN 26 H Creatinine 0.4 L Glucose 153 H POC Glucose 114 H Lactic Acid Calcium 7.3 L Phosphorus Magnesium Total Creatine Kinase Troponin T Total Protein Albumin Triglycerides LDL Cholesterol Direct HDL Cholesterol Arterial Blood Glucose Arterial Blood Ionized Calcium Urine pH Urine WBC (Auto) Vancomycin Trough Salicylates Acetaminophen Crossmatch 11/12/20 11/12/20 11/13/20 11:38 17:17 05:28 WBC RBC Hgb Hct MCV MCH MCHC RDW Plt Count Lymph % (Auto) [place] % (Auto) [place] # (Auto) Seg Neutrophils % Seg Neuts % (Manual) Lymphocytes % (Manual) Nucleated RBC % Seg Neutrophils # Seg Neutrophils # Man Lymphocytes # (Manual) Monocytes # (Manual) PT INR ABG pH POC ABG pCO2 51.4 H POC ABG pO2 41.7 L ABG pO2 ABG HCO3 ABG O2 Saturation ABG Base Excess ABG Hemoglobin 9.1 L ABG Oxyhemoglobin 72.2 L ABG Sodium 151.1 H ABG Potassium 3.2 L ABG Chloride 122.0 H ABG Glucose 191 H Oxyhemoglobin Carboxyhemoglobin Sodium Potassium Chloride Carbon Dioxide BUN Creatinine Glucose POC Glucose 125 H 127 H Lactic Acid Calcium Phosphorus Magnesium Total Creatine Kinase Troponin T Total Protein Albumin Triglycerides LDL Cholesterol Direct HDL Cholesterol Arterial Blood Glucose 191 H Arterial Blood Ionized Calcium Urine pH Urine WBC (Auto) Vancomycin Trough Salicylates Acetaminophen Crossmatch 11/13/20 11/13/20 11/13/20 10:46 23:15 23:15 WBC 12.2 H RBC 2.41 L Hgb 7.7 L Hct 24.5 L MCV 102 H MCH MCHC RDW 23.0 H Plt Count Lymph % (Auto) [place] % (Auto) [place] # (Auto) Seg Neutrophils % Seg Neuts % (Manual) Lymphocytes % (Manual) Nucleated RBC % Seg Neutrophils # Seg Neutrophils # Man Lymphocytes # (Manual) Monocytes # (Manual) PT INR ABG pH POC ABG pCO2 POC ABG pO2 ABG pO2 ABG HCO3 ABG O2 Saturation ABG Base Excess ABG Hemoglobin ABG Oxyhemoglobin ABG Sodium ABG Potassium ABG Chloride ABG Glucose Oxyhemoglobin Carboxyhemoglobin Sodium Potassium Chloride Carbon Dioxide BUN Creatinine Glucose POC Glucose 153 H Lactic Acid Calcium Phosphorus Magnesium Total Creatine Kinase Troponin T 0.123 H* Total Protein Albumin Triglycerides LDL Cholesterol Direct HDL Cholesterol Arterial Blood Glucose Arterial Blood Ionized Calcium Urine pH Urine WBC (Auto) Vancomycin Trough Salicylates Acetaminophen Crossmatch 11/13/20 11/13/20 11/14/20 23:15 Unknown 05:26 WBC RBC Hgb Hct MCV MCH MCHC RDW Plt Count Lymph % (Auto) [place] % (Auto) [place] # (Auto) Seg Neutrophils % Seg Neuts % (Manual) Lymphocytes % (Manual) Nucleated RBC % Seg Neutrophils # Seg Neutrophils # Man Lymphocytes # (Manual) Monocytes # (Manual) PT INR ABG pH 7.295 L POC ABG pCO2 56.0 H POC ABG pO2 49.1 L ABG pO2 ABG HCO3 ABG O2 Saturation ABG Base Excess ABG Hemoglobin 8.3 L ABG Oxyhemoglobin 77.1 L ABG Sodium 150.5 H ABG Potassium 3.3 L ABG Chloride 121.0 H ABG Glucose 187 H Oxyhemoglobin Carboxyhemoglobin Sodium 152 H Potassium 3.3 L Chloride 117.8 H Carbon Dioxide BUN 25 H Creatinine 0.4 L Glucose 123 H POC Glucose 46 L Lactic Acid Calcium 7.5 L Phosphorus Magnesium Total Creatine Kinase Troponin T Total Protein Albumin Triglycerides LDL Cholesterol Direct HDL Cholesterol Arterial Blood Glucose 187 H Arterial Blood Ionized Calcium Urine pH Urine WBC (Auto) Vancomycin Trough Salicylates Acetaminophen Crossmatch 11/14/20 11/14/20 11/14/20 06:26 22:26 22:26 WBC RBC 2.75 L Hgb 9.0 L Hct 27.8 L MCV 101 H MCH 33 H MCHC RDW 22.8 H Plt Count Lymph % (Auto) [place] % (Auto) [place] # (Auto) Seg Neutrophils % Seg Neuts % (Manual) Lymphocytes % (Manual) Nucleated RBC % Seg Neutrophils # Seg Neutrophils # Man Lymphocytes # (Manual) Monocytes # (Manual) PT INR ABG pH POC ABG pCO2 POC ABG pO2 ABG pO2 ABG HCO3 ABG O2 Saturation ABG Base Excess ABG Hemoglobin ABG Oxyhemoglobin ABG Sodium ABG Potassium ABG Chloride ABG Glucose Oxyhemoglobin Carboxyhemoglobin Sodium 147 H Potassium 3.3 L Chloride 114.3 H Carbon Dioxide BUN 23 H Creatinine 0.3 L Glucose 209 H POC Glucose 135 H Lactic Acid Calcium 7.4 L Phosphorus Magnesium Total Creatine Kinase Troponin T Total Protein Albumin Triglycerides LDL Cholesterol Direct HDL Cholesterol Arterial Blood Glucose Arterial Blood Ionized Calcium Urine pH Urine WBC (Auto) Vancomycin Trough Salicylates Acetaminophen Crossmatch 11/14/20 11/15/20 11/15/20 23:22 04:28 05:57 WBC RBC Hgb Hct MCV MCH MCHC RDW Plt Count Lymph % (Auto) [place] % (Auto) [place] # (Auto) Seg Neutrophils % Seg Neuts % (Manual) Lymphocytes % (Manual) Nucleated RBC % Seg Neutrophils # Seg Neutrophils # Man Lymphocytes # (Manual) Monocytes # (Manual) PT INR ABG pH POC ABG pCO2 POC ABG pO2 ABG pO2 ABG HCO3 ABG O2 Saturation ABG Base Excess ABG Hemoglobin ABG Oxyhemoglobin ABG Sodium ABG Potassium ABG Chloride ABG Glucose Oxyhemoglobin Carboxyhemoglobin Sodium 152 H Potassium Chloride 118.1 H Carbon Dioxide BUN 22 H Creatinine 0.3 L Glucose 190 H POC Glucose 136 H 151 H Lactic Acid Calcium 7.5 L Phosphorus Magnesium Total Creatine Kinase Troponin T Total Protein Albumin Triglycerides LDL Cholesterol Direct HDL Cholesterol Arterial Blood Glucose Arterial Blood Ionized Calcium Urine pH Urine WBC (Auto) Vancomycin Trough Salicylates Acetaminophen Crossmatch 11/15/20 11/15/20 11/15/20 11:40 16:56 21:53 WBC RBC Hgb Hct MCV MCH MCHC RDW Plt Count Lymph % (Auto) [place] % (Auto) [place] # (Auto) Seg Neutrophils % Seg Neuts % (Manual) Lymphocytes % (Manual) Nucleated RBC % Seg Neutrophils # Seg Neutrophils # Man Lymphocytes # (Manual) Monocytes # (Manual) PT INR ABG pH 7.457 H POC ABG pCO2 POC ABG pO2 ABG pO2 48.3 L ABG HCO3 26.1 H ABG O2 Saturation 82.9 L ABG Base Excess ABG Hemoglobin 9.7 L ABG Oxyhemoglobin ABG Sodium ABG Potassium ABG Chloride ABG Glucose Oxyhemoglobin 81.0 L Carboxyhemoglobin Sodium Potassium Chloride Carbon Dioxide BUN Creatinine Glucose POC Glucose 129 H 115 H Lactic Acid Calcium Phosphorus Magnesium Total Creatine Kinase Troponin T Total Protein Albumin Triglycerides LDL Cholesterol Direct HDL Cholesterol Arterial Blood Glucose Arterial Blood Ionized Calcium Urine pH Urine WBC (Auto) Vancomycin Trough Salicylates Acetaminophen Crossmatch 11/15/20 11/16/20 11/16/20 23:12 00:07 00:09 WBC RBC Hgb Hct MCV MCH MCHC RDW Plt Count Lymph % (Auto) [place] % (Auto) [place] # (Auto) Seg Neutrophils % Seg Neuts % (Manual) Lymphocytes % (Manual) Nucleated RBC % Seg Neutrophils # Seg Neutrophils # Man Lymphocytes # (Manual) Monocytes # (Manual) PT INR ABG pH POC ABG pCO2 POC ABG pO2 ABG pO2 95.1 H ABG HCO3 26.6 H ABG O2 Saturation ABG Base Excess ABG Hemoglobin 7.5 L ABG Oxyhemoglobin ABG Sodium ABG Potassium ABG Chloride ABG Glucose Oxyhemoglobin Carboxyhemoglobin Sodium Potassium Chloride Carbon Dioxide BUN Creatinine Glucose POC Glucose 13 L 153 H Lactic Acid Calcium Phosphorus Magnesium Total Creatine Kinase Troponin T Total Protein Albumin Triglycerides LDL Cholesterol Direct HDL Cholesterol Arterial Blood Glucose Arterial Blood Ionized Calcium Urine pH Urine WBC (Auto) Vancomycin Trough Salicylates Acetaminophen Crossmatch 11/16/20 11/16/20 11/16/20 03:43 04:00 04:00 WBC RBC 2.33 L Hgb 7.7 L Hct 24.5 L MCV 105 H MCH 33 H MCHC 31 L RDW 22.9 H Plt Count Lymph % (Auto) [place] % (Auto) [place] # (Auto) Seg Neutrophils % Seg Neuts % (Manual) Lymphocytes % (Manual) Nucleated RBC % Seg Neutrophils # Seg Neutrophils # Man Lymphocytes # (Manual) Monocytes # (Manual) PT INR ABG pH 7.348 L POC ABG pCO2 POC ABG pO2 ABG pO2 91.6 H ABG HCO3 26.3 H ABG O2 Saturation ABG Base Excess ABG Hemoglobin 7.3 L ABG Oxyhemoglobin ABG Sodium ABG Potassium ABG Chloride ABG Glucose Oxyhemoglobin Carboxyhemoglobin Sodium 148 H Potassium 3.5 L Chloride 115.9 H Carbon Dioxide BUN Creatinine 0.4 L Glucose 195 H POC Glucose Lactic Acid Calcium 7.6 L Phosphorus Magnesium Total Creatine Kinase Troponin T Total Protein Albumin Triglycerides LDL Cholesterol Direct HDL Cholesterol Arterial Blood Glucose Arterial Blood Ionized Calcium Urine pH Urine WBC (Auto) Vancomycin Trough Salicylates Acetaminophen Crossmatch 11/16/20 11/16/20 11/16/20 05:16 07:40 12:10 WBC RBC Hgb Hct MCV MCH MCHC RDW Plt Count Lymph % (Auto) [place] % (Auto) [place] # (Auto) Seg Neutrophils % Seg Neuts % (Manual) Lymphocytes % (Manual) Nucleated RBC % Seg Neutrophils # Seg Neutrophils # Man Lymphocytes # (Manual) Monocytes # (Manual) PT INR ABG pH POC ABG pCO2 POC ABG pO2 ABG pO2 ABG HCO3 ABG O2 Saturation ABG Base Excess ABG Hemoglobin ABG Oxyhemoglobin ABG Sodium ABG Potassium ABG Chloride ABG Glucose Oxyhemoglobin Carboxyhemoglobin Sodium Potassium Chloride Carbon Dioxide BUN Creatinine Glucose POC Glucose 61 L 122 H 140 H Lactic Acid Calcium Phosphorus Magnesium Total Creatine Kinase Troponin T Total Protein Albumin Triglycerides LDL Cholesterol Direct HDL Cholesterol Arterial Blood Glucose Arterial Blood Ionized Calcium Urine pH Urine WBC (Auto) Vancomycin Trough Salicylates Acetaminophen Crossmatch 11/16/20 11/16/20 11/17/20 17:14 23:40 04:30 WBC RBC Hgb Hct MCV MCH MCHC RDW Plt Count Lymph % (Auto) [place] % (Auto) [place] # (Auto) Seg Neutrophils % Seg Neuts % (Manual) Lymphocytes % (Manual) Nucleated RBC % Seg Neutrophils # Seg Neutrophils # Man Lymphocytes # (Manual) Monocytes # (Manual) PT INR ABG pH 7.470 H POC ABG pCO2 POC ABG pO2 75.4 L ABG pO2 ABG HCO3 ABG O2 Saturation ABG Base Excess ABG Hemoglobin 7 L ABG Oxyhemoglobin ABG Sodium ABG Potassium ABG Chloride 116.0 H ABG Glucose 161 H Oxyhemoglobin Carboxyhemoglobin Sodium Potassium Chloride Carbon Dioxide BUN Creatinine Glucose POC Glucose 139 H 151 H Lactic Acid Calcium Phosphorus Magnesium Total Creatine Kinase Troponin T Total Protein Albumin Triglycerides LDL Cholesterol Direct HDL Cholesterol Arterial Blood Glucose 161 H Arterial Blood Ionized Calcium Urine pH Urine WBC (Auto) Vancomycin Trough Salicylates Acetaminophen Crossmatch 11/17/20 11/17/20 11/17/20 09:50 09:50 11:10 WBC RBC 2.02 L Hgb 6.6 L Hct 20.2 L MCV 100 H MCH 33 H MCHC RDW 22.4 H Plt Count Lymph % (Auto) [place] % (Auto) [place] # (Auto) Seg Neutrophils % Seg Neuts % (Manual) Lymphocytes % (Manual) Nucleated RBC % Seg Neutrophils # Seg Neutrophils # Man Lymphocytes # (Manual) Monocytes # (Manual) PT INR ABG pH POC ABG pCO2 POC ABG pO2 ABG pO2 ABG HCO3 ABG O2 Saturation ABG Base Excess ABG Hemoglobin ABG Oxyhemoglobin ABG Sodium ABG Potassium ABG Chloride ABG Glucose Oxyhemoglobin Carboxyhemoglobin Sodium Potassium Chloride 111.8 H Carbon Dioxide BUN 23 H Creatinine 0.4 L Glucose 142 H POC Glucose Lactic Acid Calcium 7.3 L Phosphorus Magnesium Total Creatine Kinase Troponin T Total Protein Albumin Triglycerides LDL Cholesterol Direct HDL Cholesterol Arterial Blood Glucose Arterial Blood Ionized Calcium Urine pH Urine WBC (Auto) Vancomycin Trough Salicylates Acetaminophen Crossmatch See Detail 11/17/20 11/17/20 11/17/20 11:52 11:57 23:22 WBC RBC Hgb Hct MCV MCH MCHC RDW Plt Count Lymph % (Auto) [place] % (Auto) [place] # (Auto) Seg Neutrophils % Seg Neuts % (Manual) Lymphocytes % (Manual) Nucleated RBC % Seg Neutrophils # Seg Neutrophils # Man Lymphocytes # (Manual) Monocytes # (Manual) PT INR ABG pH POC ABG pCO2 POC ABG pO2 ABG pO2 ABG HCO3 ABG O2 Saturation ABG Base Excess ABG Hemoglobin ABG Oxyhemoglobin ABG Sodium ABG Potassium ABG Chloride ABG Glucose Oxyhemoglobin Carboxyhemoglobin Sodium Potassium Chloride Carbon Dioxide BUN Creatinine Glucose POC Glucose 42 L 114 H 63 L Lactic Acid Calcium Phosphorus Magnesium Total Creatine Kinase Troponin T Total Protein Albumin Triglycerides LDL Cholesterol Direct HDL Cholesterol Arterial Blood Glucose Arterial Blood Ionized Calcium Urine pH Urine WBC (Auto) Vancomycin Trough Salicylates Acetaminophen Crossmatch 11/17/20 11/18/20 11/18/20 23:27 04:06 04:45 WBC RBC 2.36 L Hgb 7.4 L Hct 23.4 L MCV 99 H MCH MCHC RDW 21.6 H Plt Count Lymph % (Auto) [place] % (Auto) [place] # (Auto) Seg Neutrophils % Seg Neuts % (Manual) Lymphocytes % (Manual) Nucleated RBC % Seg Neutrophils # Seg Neutrophils # Man Lymphocytes # (Manual) Monocytes # (Manual) PT INR ABG pH POC ABG pCO2 POC ABG pO2 67.7 L ABG pO2 ABG HCO3 ABG O2 Saturation ABG Base Excess ABG Hemoglobin 8.3 L ABG Oxyhemoglobin ABG Sodium ABG Potassium ABG Chloride 112.0 H ABG Glucose 143 H Oxyhemoglobin Carboxyhemoglobin Sodium Potassium Chloride Carbon Dioxide BUN Creatinine Glucose POC Glucose 124 H Lactic Acid Calcium Phosphorus Magnesium Total Creatine Kinase Troponin T Total Protein Albumin Triglycerides LDL Cholesterol Direct HDL Cholesterol Arterial Blood Glucose 143 H Arterial Blood Ionized Calcium 4.5 L Urine pH Urine WBC (Auto) Vancomycin Trough Salicylates Acetaminophen Crossmatch 11/18/20 11/18/20 11/18/20 04:45 05:56 23:46 WBC RBC Hgb Hct MCV MCH MCHC RDW Plt Count Lymph % (Auto) [place] % (Auto) [place] # (Auto) Seg Neutrophils % Seg Neuts % (Manual) Lymphocytes % (Manual) Nucleated RBC % Seg Neutrophils # Seg Neutrophils # Man Lymphocytes # (Manual) Monocytes # (Manual) PT INR ABG pH POC ABG pCO2 POC ABG pO2 ABG pO2 ABG HCO3 ABG O2 Saturation ABG Base Excess ABG Hemoglobin ABG Oxyhemoglobin ABG Sodium ABG Potassium ABG Chloride ABG Glucose Oxyhemoglobin Carboxyhemoglobin Sodium Potassium Chloride 107.9 H Carbon Dioxide BUN 23 H Creatinine 0.4 L Glucose 139 H POC Glucose 133 H 66 L Lactic Acid Calcium 7.6 L Phosphorus Magnesium Total Creatine Kinase Troponin T Total Protein Albumin Triglycerides LDL Cholesterol Direct HDL Cholesterol Arterial Blood Glucose Arterial Blood Ionized Calcium Urine pH Urine WBC (Auto) Vancomycin Trough Salicylates Acetaminophen Crossmatch 11/18/20 11/19/20 11/19/20 23:52 05:48 06:36 WBC RBC Hgb Hct MCV MCH MCHC RDW Plt Count Lymph % (Auto) [place] % (Auto) [place] # (Auto) Seg Neutrophils % Seg Neuts % (Manual) Lymphocytes % (Manual) Nucleated RBC % Seg Neutrophils # Seg Neutrophils # Man Lymphocytes # (Manual) Monocytes # (Manual) PT INR ABG pH POC ABG pCO2 POC ABG pO2 ABG pO2 ABG HCO3 ABG O2 Saturation ABG Base Excess ABG Hemoglobin ABG Oxyhemoglobin ABG Sodium ABG Potassium ABG Chloride ABG Glucose Oxyhemoglobin Carboxyhemoglobin Sodium Potassium Chloride Carbon Dioxide BUN 21 H Creatinine 0.4 L Glucose 119 H POC Glucose 118 H 108 H Lactic Acid Calcium 7.8 L Phosphorus Magnesium Total Creatine Kinase Troponin T Total Protein Albumin Triglycerides LDL Cholesterol Direct HDL Cholesterol Arterial Blood Glucose Arterial Blood Ionized Calcium Urine pH Urine WBC (Auto) Vancomycin Trough Salicylates Acetaminophen Crossmatch 11/19/20 11/19/20 11/19/20 06:36 06:36 18:15 WBC RBC 2.79 L Hgb 9.0 L Hct 27.8 L MCV 100 H MCH MCHC RDW 20.7 H Plt Count Lymph % (Auto) [place] % (Auto) [place] # (Auto) Seg Neutrophils % Seg Neuts % (Manual) Lymphocytes % (Manual) Nucleated RBC % Seg Neutrophils # Seg Neutrophils # Man Lymphocytes # (Manual) Monocytes # (Manual) PT INR 1.15 H ABG pH POC ABG pCO2 POC ABG pO2 ABG pO2 ABG HCO3 ABG O2 Saturation ABG Base Excess ABG Hemoglobin ABG Oxyhemoglobin ABG Sodium ABG Potassium ABG Chloride ABG Glucose Oxyhemoglobin Carboxyhemoglobin Sodium Potassium Chloride Carbon Dioxide BUN Creatinine Glucose POC Glucose 115 H Lactic Acid Calcium Phosphorus Magnesium Total Creatine Kinase Troponin T Total Protein Albumin Triglycerides LDL Cholesterol Direct HDL Cholesterol Arterial Blood Glucose Arterial Blood Ionized Calcium Urine pH Urine WBC (Auto) Vancomycin Trough Salicylates Acetaminophen Crossmatch 11/19/20 11/19/20 11/20/20 23:27 Unknown 04:56 WBC RBC Hgb Hct MCV MCH MCHC RDW Plt Count Lymph % (Auto) [place] % (Auto) [place] # (Auto) Seg Neutrophils % Seg Neuts % (Manual) Lymphocytes % (Manual) Nucleated RBC % Seg Neutrophils # Seg Neutrophils # Man Lymphocytes # (Manual) Monocytes # (Manual) PT INR ABG pH 7.457 H POC ABG pCO2 POC ABG pO2 57.4 L ABG pO2 72.4 L ABG HCO3 26.9 H ABG O2 Saturation ABG Base Excess ABG Hemoglobin 8.5 L 9.6 L ABG Oxyhemoglobin 90.1 L ABG Sodium ABG Potassium ABG Chloride 109.0 H ABG Glucose 142 H Oxyhemoglobin 94.1 L Carboxyhemoglobin Sodium Potassium Chloride Carbon Dioxide BUN Creatinine Glucose POC Glucose 129 H Lactic Acid Calcium Phosphorus Magnesium Total Creatine Kinase Troponin T Total Protein Albumin Triglycerides LDL Cholesterol Direct HDL Cholesterol Arterial Blood Glucose 142 H Arterial Blood Ionized Calcium Urine pH Urine WBC (Auto) Vancomycin Trough Salicylates Acetaminophen Crossmatch 11/20/20 11/20/20 11/20/20 05:07 05:45 05:45 WBC 11.7 H RBC 2.74 L Hgb 8.9 L Hct 26.3 L MCV 96 H MCH 33 H MCHC RDW 18.6 H Plt Count Lymph % (Auto) [place] % (Auto) [place] # (Auto) Seg Neutrophils % Seg Neuts % (Manual) Lymphocytes % (Manual) Nucleated RBC % Seg Neutrophils # Seg Neutrophils # Man Lymphocytes # (Manual) Monocytes # (Manual) PT INR ABG pH POC ABG pCO2 POC ABG pO2 ABG pO2 ABG HCO3 ABG O2 Saturation ABG Base Excess ABG Hemoglobin ABG Oxyhemoglobin ABG Sodium ABG Potassium ABG Chloride ABG Glucose Oxyhemoglobin Carboxyhemoglobin Sodium Potassium Chloride Carbon Dioxide 31 H BUN Creatinine 0.4 L Glucose 127 H POC Glucose 129 H Lactic Acid Calcium 8.0 L Phosphorus Magnesium Total Creatine Kinase Troponin T Total Protein Albumin Triglycerides LDL Cholesterol Direct HDL Cholesterol Arterial Blood Glucose Arterial Blood Ionized Calcium Urine pH Urine WBC (Auto) Vancomycin Trough Salicylates Acetaminophen Crossmatch 11/20/20 11/20/20 11/21/20 12:02 17:52 00:02 WBC RBC Hgb Hct MCV MCH MCHC RDW Plt Count Lymph % (Auto) [place] % (Auto) [place] # (Auto) Seg Neutrophils % Seg Neuts % (Manual) Lymphocytes % (Manual) Nucleated RBC % Seg Neutrophils # Seg Neutrophils # Man Lymphocytes # (Manual) Monocytes # (Manual) PT INR ABG pH POC ABG pCO2 POC ABG pO2 ABG pO2 ABG HCO3 ABG O2 Saturation ABG Base Excess ABG Hemoglobin ABG Oxyhemoglobin ABG Sodium ABG Potassium ABG Chloride ABG Glucose Oxyhemoglobin Carboxyhemoglobin Sodium Potassium Chloride Carbon Dioxide BUN Creatinine Glucose POC Glucose 134 H 115 H 116 H Lactic Acid Calcium Phosphorus Magnesium Total Creatine Kinase Troponin T Total Protein Albumin Triglycerides LDL Cholesterol Direct HDL Cholesterol Arterial Blood Glucose Arterial Blood Ionized Calcium Urine pH Urine WBC (Auto) Vancomycin Trough Salicylates Acetaminophen Crossmatch 11/21/20 11/21/20 11/21/20 03:23 04:00 05:14 WBC RBC Hgb Hct MCV MCH MCHC RDW Plt Count Lymph % (Auto) [place] % (Auto) [place] # (Auto) Seg Neutrophils % Seg Neuts % (Manual) Lymphocytes % (Manual) Nucleated RBC % Seg Neutrophils # Seg Neutrophils # Man Lymphocytes # (Manual) Monocytes # (Manual) PT INR ABG pH 7.479 H POC ABG pCO2 POC ABG pO2 73.7 L ABG pO2 ABG HCO3 ABG O2 Saturation ABG Base Excess ABG Hemoglobin 9.4 L ABG Oxyhemoglobin ABG Sodium ABG Potassium ABG Chloride 108.0 H ABG Glucose 135 H Oxyhemoglobin Carboxyhemoglobin Sodium Potassium Chloride Carbon Dioxide 34 H BUN Creatinine 0.4 L Glucose 125 H POC Glucose 116 H Lactic Acid Calcium 7.9 L Phosphorus Magnesium Total Creatine Kinase Troponin T Total Protein Albumin Triglycerides LDL Cholesterol Direct HDL Cholesterol Arterial Blood Glucose 135 H Arterial Blood Ionized Calcium 4.5 L Urine pH Urine WBC (Auto) Vancomycin Trough Salicylates Acetaminophen Crossmatch 11/22/20 11/22/20 11/22/20 04:00 04:00 05:34 WBC 12.2 H RBC 2.74 L Hgb 8.7 L Hct 27.4 L MCV 100 H MCH MCHC RDW 19.2 H Plt Count Lymph % (Auto) [place] % (Auto) [place] # (Auto) Seg Neutrophils % Seg Neuts % (Manual) Lymphocytes % (Manual) Nucleated RBC % Seg Neutrophils # Seg Neutrophils # Man Lymphocytes # (Manual) Monocytes # (Manual) PT INR ABG pH POC ABG pCO2 POC ABG pO2 ABG pO2 ABG HCO3 ABG O2 Saturation ABG Base Excess ABG Hemoglobin ABG Oxyhemoglobin ABG Sodium ABG Potassium ABG Chloride ABG Glucose Oxyhemoglobin Carboxyhemoglobin Sodium Potassium Chloride Carbon Dioxide BUN Creatinine 0.4 L Glucose POC Glucose 58 L Lactic Acid Calcium 7.7 L Phosphorus Magnesium Total Creatine Kinase Troponin T Total Protein Albumin Triglycerides LDL Cholesterol Direct HDL Cholesterol Arterial Blood Glucose Arterial Blood Ionized Calcium Urine pH Urine WBC (Auto) Vancomycin Trough Salicylates Acetaminophen Crossmatch 11/22/20 11/23/20 11/23/20 11:48 00:15 04:25 WBC RBC Hgb Hct MCV MCH MCHC RDW Plt Count Lymph % (Auto) [place] % (Auto) [place] # (Auto) Seg Neutrophils % Seg Neuts % (Manual) Lymphocytes % (Manual) Nucleated RBC % Seg Neutrophils # Seg Neutrophils # Man Lymphocytes # (Manual) Monocytes # (Manual) PT INR ABG pH 7.489 H POC ABG pCO2 POC ABG pO2 74.7 L ABG pO2 ABG HCO3 ABG O2 Saturation ABG Base Excess ABG Hemoglobin 9.6 L ABG Oxyhemoglobin ABG Sodium 135.6 L ABG Potassium ABG Chloride ABG Glucose 119 H Oxyhemoglobin Carboxyhemoglobin Sodium Potassium Chloride Carbon Dioxide BUN Creatinine Glucose POC Glucose 60 L 106 H Lactic Acid Calcium Phosphorus Magnesium Total Creatine Kinase Troponin T Total Protein Albumin Triglycerides LDL Cholesterol Direct HDL Cholesterol Arterial Blood Glucose 119 H Arterial Blood Ionized Calcium 4.4 L Urine pH Urine WBC (Auto) Vancomycin Trough Salicylates Acetaminophen Crossmatch 11/23/20 11/23/20 11/23/20 05:27 10:23 10:23 WBC 11.3 H RBC 2.58 L Hgb 8.4 L Hct 24.7 L MCV 96 H MCH MCHC RDW 18.2 H Plt Count Lymph % (Auto) [place] % (Auto) [place] # (Auto) Seg Neutrophils % Seg Neuts % (Manual) 94.0 H Lymphocytes % (Manual) 5.0 L Nucleated RBC % Seg Neutrophils # Seg Neutrophils # Man 10.6 H Lymphocytes # (Manual) 0.6 L Monocytes # (Manual) PT INR ABG pH POC ABG pCO2 POC ABG pO2 ABG pO2 ABG HCO3 ABG O2 Saturation ABG Base Excess ABG Hemoglobin ABG Oxyhemoglobin ABG Sodium ABG Potassium ABG Chloride ABG Glucose Oxyhemoglobin Carboxyhemoglobin Sodium Potassium Chloride Carbon Dioxide BUN Creatinine 0.4 L Glucose 101 H POC Glucose 121 H Lactic Acid Calcium 7.2 L Phosphorus Magnesium Total Creatine Kinase Troponin T Total Protein Albumin Triglycerides LDL Cholesterol Direct HDL Cholesterol Arterial Blood Glucose Arterial Blood Ionized Calcium Urine pH Urine WBC (Auto) Vancomycin Trough Salicylates Acetaminophen Crossmatch 11/23/20 11/23/20 11/24/20 11:53 23:19 05:31 WBC RBC Hgb Hct MCV MCH MCHC RDW Plt Count Lymph % (Auto) [place] % (Auto) [place] # (Auto) Seg Neutrophils % Seg Neuts % (Manual) Lymphocytes % (Manual) Nucleated RBC % Seg Neutrophils # Seg Neutrophils # Man Lymphocytes # (Manual) Monocytes # (Manual) PT INR ABG pH POC ABG pCO2 POC ABG pO2 ABG pO2 ABG HCO3 ABG O2 Saturation ABG Base Excess ABG Hemoglobin ABG Oxyhemoglobin ABG Sodium ABG Potassium ABG Chloride ABG Glucose Oxyhemoglobin Carboxyhemoglobin Sodium Potassium Chloride Carbon Dioxide BUN Creatinine Glucose POC Glucose 112 H 120 H 132 H Lactic Acid Calcium Phosphorus Magnesium Total Creatine Kinase Troponin T Total Protein Albumin Triglycerides LDL Cholesterol Direct HDL Cholesterol Arterial Blood Glucose Arterial Blood Ionized Calcium Urine pH Urine WBC (Auto) Vancomycin Trough Salicylates Acetaminophen Crossmatch 11/24/20 11/24/20 11/24/20 11:27 16:48 23:11 WBC RBC Hgb Hct MCV MCH MCHC RDW Plt Count Lymph % (Auto) [place] % (Auto) [place] # (Auto) Seg Neutrophils % Seg Neuts % (Manual) Lymphocytes % (Manual) Nucleated RBC % Seg Neutrophils # Seg Neutrophils # Man Lymphocytes # (Manual) Monocytes # (Manual) PT INR ABG pH POC ABG pCO2 POC ABG pO2 ABG pO2 ABG HCO3 ABG O2 Saturation ABG Base Excess ABG Hemoglobin ABG Oxyhemoglobin ABG Sodium ABG Potassium ABG Chloride ABG Glucose Oxyhemoglobin Carboxyhemoglobin Sodium Potassium Chloride Carbon Dioxide BUN Creatinine Glucose POC Glucose 137 H 128 H 114 H Lactic Acid Calcium Phosphorus Magnesium Total Creatine Kinase Troponin T Total Protein Albumin Triglycerides LDL Cholesterol Direct HDL Cholesterol Arterial Blood Glucose Arterial Blood Ionized Calcium Urine pH Urine WBC (Auto) Vancomycin Trough Salicylates Acetaminophen Crossmatch 11/25/20 11/25/20 11/25/20 05:06 11:20 11:31 WBC 19.0 H RBC 2.28 L Hgb 7.3 L Hct 22.5 L MCV 99 H MCH MCHC RDW 18.3 H Plt Count Lymph % (Auto) [place] % (Auto) [place] # (Auto) Seg Neutrophils % Seg Neuts % (Manual) Lymphocytes % (Manual) Nucleated RBC % Seg Neutrophils # Seg Neutrophils # Man Lymphocytes # (Manual) Monocytes # (Manual) PT INR ABG pH POC ABG pCO2 POC ABG pO2 ABG pO2 ABG HCO3 ABG O2 Saturation ABG Base Excess ABG Hemoglobin ABG Oxyhemoglobin ABG Sodium ABG Potassium ABG Chloride ABG Glucose Oxyhemoglobin Carboxyhemoglobin Sodium Potassium Chloride Carbon Dioxide BUN Creatinine Glucose POC Glucose 125 H 106 H Lactic Acid Calcium Phosphorus Magnesium Total Creatine Kinase Troponin T Total Protein Albumin Triglycerides LDL Cholesterol Direct HDL Cholesterol Arterial Blood Glucose Arterial Blood Ionized Calcium Urine pH Urine WBC (Auto) Vancomycin Trough Salicylates Acetaminophen Crossmatch 11/25/20 11/26/20 11/26/20 16:25 09:25 12:01 WBC 20.8 H RBC 2.82 L Hgb 8.7 L Hct 27.3 L MCV 97 H MCH MCHC RDW 17.9 H Plt Count Lymph % (Auto) [place] % (Auto) [place] # (Auto) Seg Neutrophils % Seg Neuts % (Manual) Lymphocytes % (Manual) Nucleated RBC % Seg Neutrophils # Seg Neutrophils # Man Lymphocytes # (Manual) Monocytes # (Manual) PT INR ABG pH 7.480 H POC ABG pCO2 POC ABG pO2 78.1 L ABG pO2 ABG HCO3 ABG O2 Saturation ABG Base Excess ABG Hemoglobin 8.5 L ABG Oxyhemoglobin ABG Sodium ABG Potassium ABG Chloride ABG Glucose 114 H Oxyhemoglobin Carboxyhemoglobin Sodium Potassium Chloride Carbon Dioxide BUN Creatinine Glucose POC Glucose 130 H Lactic Acid Calcium Phosphorus Magnesium Total Creatine Kinase Troponin T Total Protein Albumin Triglycerides LDL Cholesterol Direct HDL Cholesterol Arterial Blood Glucose 114 H Arterial Blood Ionized Calcium 4.5 L Urine pH Urine WBC (Auto) Vancomycin Trough Salicylates Acetaminophen Crossmatch 11/26/20 11/26/20 11/27/20 16:55 23:43 05:55 WBC 18.1 H RBC 2.48 L Hgb 7.8 L Hct 23.9 L MCV 97 H MCH MCHC RDW 17.7 H Plt Count Lymph % (Auto) [place] % (Auto) [place] # (Auto) Seg Neutrophils % Seg Neuts % (Manual) Lymphocytes % (Manual) Nucleated RBC % Seg Neutrophils # Seg Neutrophils # Man Lymphocytes # (Manual) Monocytes # (Manual) PT INR ABG pH POC ABG pCO2 POC ABG pO2 ABG pO2 ABG HCO3 ABG O2 Saturation ABG Base Excess ABG Hemoglobin ABG Oxyhemoglobin ABG Sodium ABG Potassium ABG Chloride ABG Glucose Oxyhemoglobin Carboxyhemoglobin Sodium Potassium Chloride Carbon Dioxide BUN Creatinine Glucose POC Glucose 123 H 110 H Lactic Acid Calcium Phosphorus Magnesium Total Creatine Kinase Troponin T Total Protein Albumin Triglycerides LDL Cholesterol Direct HDL Cholesterol Arterial Blood Glucose Arterial Blood Ionized Calcium Urine pH Urine WBC (Auto) Vancomycin Trough Salicylates Acetaminophen Crossmatch 11/27/20 11/27/20 11/27/20 05:55 11:41 18:08 WBC RBC Hgb Hct MCV MCH MCHC RDW Plt Count Lymph % (Auto) [place] % (Auto) [place] # (Auto) Seg Neutrophils % Seg Neuts % (Manual) Lymphocytes % (Manual) Nucleated RBC % Seg Neutrophils # Seg Neutrophils # Man Lymphocytes # (Manual) Monocytes # (Manual) PT INR ABG pH POC ABG pCO2 POC ABG pO2 ABG pO2 ABG HCO3 ABG O2 Saturation ABG Base Excess ABG Hemoglobin ABG Oxyhemoglobin ABG Sodium ABG Potassium ABG Chloride ABG Glucose Oxyhemoglobin Carboxyhemoglobin Sodium Potassium Chloride Carbon Dioxide 32 H BUN Creatinine 0.4 L Glucose 133 H POC Glucose 111 H 115 H Lactic Acid Calcium 7.5 L Phosphorus Magnesium Total Creatine Kinase Troponin T Total Protein 6.1 L Albumin 1.7 L Triglycerides LDL Cholesterol Direct HDL Cholesterol Arterial Blood Glucose Arterial Blood Ionized Calcium Urine pH Urine WBC (Auto) Vancomycin Trough Salicylates Acetaminophen Crossmatch 11/27/20 11/28/20 11/28/20 23:29 03:56 05:12 WBC RBC Hgb Hct MCV MCH MCHC RDW Plt Count Lymph % (Auto) [place] % (Auto) [place] # (Auto) Seg Neutrophils % Seg Neuts % (Manual) Lymphocytes % (Manual) Nucleated RBC % Seg Neutrophils # Seg Neutrophils # Man Lymphocytes # (Manual) Monocytes # (Manual) PT INR ABG pH 7.515 H POC ABG pCO2 POC ABG pO2 74.5 L ABG pO2 ABG HCO3 ABG O2 Saturation ABG Base Excess ABG Hemoglobin 8.4 L ABG Oxyhemoglobin ABG Sodium ABG Potassium ABG Chloride ABG Glucose 130 H Oxyhemoglobin Carboxyhemoglobin Sodium Potassium Chloride Carbon Dioxide BUN Creatinine Glucose POC Glucose 112 H 113 H Lactic Acid Calcium Phosphorus Magnesium Total Creatine Kinase Troponin T Total Protein Albumin Triglycerides LDL Cholesterol Direct HDL Cholesterol Arterial Blood Glucose 130 H Arterial Blood Ionized Calcium 4.5 L Urine pH Urine WBC (Auto) Vancomycin Trough Salicylates Acetaminophen Crossmatch 11/28/20 11/28/20 11/29/20 06:24 23:44 05:33 WBC RBC Hgb Hct MCV MCH MCHC RDW Plt Count Lymph % (Auto) [place] % (Auto) [place] # (Auto) Seg Neutrophils % Seg Neuts % (Manual) Lymphocytes % (Manual) Nucleated RBC % Seg Neutrophils # Seg Neutrophils # Man Lymphocytes # (Manual) Monocytes # (Manual) PT INR ABG pH POC ABG pCO2 POC ABG pO2 ABG pO2 ABG HCO3 ABG O2 Saturation ABG Base Excess ABG Hemoglobin ABG Oxyhemoglobin ABG Sodium ABG Potassium ABG Chloride ABG Glucose Oxyhemoglobin Carboxyhemoglobin Sodium 136 L Potassium Chloride Carbon Dioxide BUN Creatinine 0.4 L Glucose 124 H POC Glucose 112 H 107 H Lactic Acid Calcium 7.4 L Phosphorus Magnesium Total Creatine Kinase Troponin T Total Protein Albumin Triglycerides LDL Cholesterol Direct HDL Cholesterol Arterial Blood Glucose Arterial Blood Ionized Calcium Urine pH Urine WBC (Auto) Vancomycin Trough Salicylates Acetaminophen Crossmatch 11/29/20 11/29/20 11/29/20 11:59 23:16 23:16 WBC 15.5 H RBC 2.40 L Hgb 7.5 L Hct 23.1 L MCV 96 H MCH MCHC RDW 17.6 H Plt Count Lymph % (Auto) [place] % (Auto) [place] # (Auto) Seg Neutrophils % Seg Neuts % (Manual) Lymphocytes % (Manual) Nucleated RBC % Seg Neutrophils # Seg Neutrophils # Man Lymphocytes # (Manual) Monocytes # (Manual) PT INR ABG pH POC ABG pCO2 POC ABG pO2 ABG pO2 ABG HCO3 ABG O2 Saturation ABG Base Excess ABG Hemoglobin ABG Oxyhemoglobin ABG Sodium ABG Potassium ABG Chloride ABG Glucose Oxyhemoglobin Carboxyhemoglobin Sodium 135 L Potassium Chloride Carbon Dioxide 31 H BUN Creatinine 0.4 L Glucose 110 H POC Glucose 121 H Lactic Acid Calcium 7.6 L Phosphorus Magnesium Total Creatine Kinase Troponin T Total Protein Albumin Triglycerides LDL Cholesterol Direct HDL Cholesterol Arterial Blood Glucose Arterial Blood Ionized Calcium Urine pH Urine WBC (Auto) Vancomycin Trough Salicylates Acetaminophen Crossmatch 11/30/20 11/30/20 11/30/20 00:14 05:14 05:14 WBC 15.6 H RBC 2.46 L Hgb 7.7 L Hct 23.8 L MCV 97 H MCH MCHC RDW 17.2 H Plt Count Lymph % (Auto) 9.5 L [place] % (Auto) 10.3 H [place] # (Auto) 1.6 H Seg Neutrophils % 79.3 H Seg Neuts % (Manual) Lymphocytes % (Manual) Nucleated RBC % Seg Neutrophils # 12.3 H Seg Neutrophils # Man Lymphocytes # (Manual) Monocytes # (Manual) PT INR ABG pH POC ABG pCO2 POC ABG pO2 ABG pO2 ABG HCO3 ABG O2 Saturation ABG Base Excess ABG Hemoglobin ABG Oxyhemoglobin ABG Sodium ABG Potassium ABG Chloride ABG Glucose Oxyhemoglobin Carboxyhemoglobin Sodium Potassium Chloride Carbon Dioxide BUN 21 H Creatinine 0.4 L Glucose 126 H POC Glucose 109 H Lactic Acid Calcium 7.7 L Phosphorus Magnesium Total Creatine Kinase Troponin T Total Protein Albumin Triglycerides LDL Cholesterol Direct HDL Cholesterol Arterial Blood Glucose Arterial Blood Ionized Calcium Urine pH Urine WBC (Auto) Vancomycin Trough Salicylates Acetaminophen Crossmatch 11/30/20 11/30/20 12/02/20 06:10 12:11 05:05 WBC RBC Hgb Hct MCV MCH MCHC RDW Plt Count Lymph % (Auto) [place] % (Auto) [place] # (Auto) Seg Neutrophils % Seg Neuts % (Manual) Lymphocytes % (Manual) Nucleated RBC % Seg Neutrophils # Seg Neutrophils # Man Lymphocytes # (Manual) Monocytes # (Manual) PT INR ABG pH POC ABG pCO2 POC ABG pO2 ABG pO2 ABG HCO3 ABG O2 Saturation ABG Base Excess ABG Hemoglobin ABG Oxyhemoglobin ABG Sodium ABG Potassium ABG Chloride ABG Glucose Oxyhemoglobin Carboxyhemoglobin Sodium Potassium Chloride Carbon Dioxide BUN Creatinine Glucose POC Glucose 120 H 117 H 112 H Lactic Acid Calcium Phosphorus Magnesium Total Creatine Kinase Troponin T Total Protein Albumin Triglycerides LDL Cholesterol Direct HDL Cholesterol Arterial Blood Glucose Arterial Blood Ionized Calcium Urine pH Urine WBC (Auto) Vancomycin Trough Salicylates Acetaminophen Crossmatch Allied health notes reviewed: nursing
[2020-12-02] MEDS ORDERED: carBAMazepine 200 MG TAB PO SCH (10:00)
--- NOTE | 2020-12-02 12:24 | Progress Note ---
Assessment and Plan Telemetry reviewed: A. fib heart rate 90s. No events overnight Afib with RVR. Optimize rate control and antihypertensive regimen. Increase to metoprolol 25 mg 3 times daily. Continue Amiodarone to 200mg PO BID. Continue Midodrine 10mg PO TID. No systemic AC at this time in setting of anemia requiring PRBC tx, thrombocytopenia and sacral ulcer. Elevated Troponin Considering pt's advanced age and comorbidities will plan for conservative cardiac management. Anemia requiring transfusion Continue to hold AC in setting of anemia requiring transfusions. Acute Respiratory Failure s/p Trach. Ventilated. DVT Prophylaxis. On Lovenox DVT prophylaxis. SCDs in place. Patient currently stable cardiac condition. Continue current cardiac regimen. Will follow on as-needed basis. The patient has been seen in conjunction with Dr. Landa who agrees with the assessment and plan of care. - Patient Problems (1) AMS (altered mental status) Current Visit: Yes Status: Acute (2) Atrial fibrillation with RVR Current Visit: Yes Status: Acute (3) Acute respiratory failure Current Visit: Yes Status: Acute (4) Bilateral pneumonia Current Visit: Yes Status: Acute (5) Sepsis Current Visit: Yes Status: Acute (6) Sepsis associated hypotension Current Visit: Yes Status: Acute (7) Sacral decubitus ulcer, stage IV Current Visit: Yes Status: Acute (8) UTI (urinary tract infection) Current Visit: Yes Status: Acute (9) FAZAL (acute kidney injury) Current Visit: Yes Status: Acute (10) Hypomagnesemia Current Visit: Yes Status: Acute (11) Anemia Current Visit: Yes Status: Acute (12) Thrombocytopenia Current Visit: Yes Status: Acute Subjective Date of service: 12/02/20 Principal diagnosis: Acute Resp Fail, PNA, Septic Shock, Sacral Ulcer, AF with RVR Interval history: Pt is s/p Trach & PEG ventilated, awake and able to follow simple commands. Telemetry reviewed: A. fib 100s. No events overnight. Objective - Physical Examination General: No Apparent Distress, Other (intubated) HEENT: Positive: EOMI, Normocephaly, Mucus Membranes Moist Neck: Positive: neck supple, trachea midline Neuro: Positive: Other (awake, able to follow simple commands, aphasic s/p trach) Abdomen: Positive: Soft, Active Bowel Sounds. Negative: Tender Skin: Positive: Wound (sacral). Negative: Rash Musculoskeletal: No Fluid Collection, No Pain Extremities: Present: upper extr. pulses, lower extr. pulses, +1 Edema, Other (chronic skin changes noted) - Imaging and Cardiology EKG: report reviewed, image reviewed Echo: report reviewed (10/28/2020- EF 55-60%, no significant valvular abnormalities) Repolarization changes or abnormalities: nonspecific abnormality, ST segment, and/or T wave - Allied health notes Allied health notes reviewed: nursing
--- NOTE | 2020-12-02 12:53 | Progress Note ---
Assessment and Plan Cultures: 10/26/2020 tracheal aspirate culture: MRSA 10/26/2020 blood culture: Proteus 10/27/2020 urine culture: Mixed hien 11/15/2020 sputum culture: MRSA A/P: 75-year-old male, [facility] resident with seizure disorder, hypertension, depression, hyperlipidemia, chronic encephalopathy was sent to the hospital with worsening mental status: #Septic shock: probably from pneumonia. Resolved #Acute hypoxic respiratory failure: on the vent, s/p trach. #Proteus bacteremia: multifactorial from infected sacral decubitus ulcer, bilateral pneumonia, UTI. S/P abx. #Acute diarrhea: ?C. difficile, improved on vancomycin p.o. Diarrhea improved, Cdiff test was not able to be done. #Necrotic, infected sacral decubitus ulcer: underwent debridement 10/29/2020, also noted to have brittle coccyx consistent with osteomyelitis. s/p abx. #UTI: UA with significant pyuria. Culture with mixed hien. S/P abx. #FAZAL: resolved. #PVD: SFA occlusion. Not a candidate for revascularization per vascular Recs: -Leucocytosis multifactorial including from ischemic feet/digits, large necrotic sacral wound. No fever, remains off pressors. Monitor off antibiotics for now. -Continue local wound care -Guarded prognosis Stephania Starr MD, FACP [facility], [place], [facility] ([facility] O: [phone] F: [phone] Subjective Date of service: 12/02/20 Principal diagnosis: Acute Resp Fail, PNA, Septic Shock, Sacral Ulcer, AF with RVR Interval history: No fever. Remains on the vent via trach. Objective - Exam Narrative Exam: Physical Exam: Constitutional: awake, on the vent Head, Ears, Nose: Normocephalic, atraumatic. External ears, nose normal Eyes: Conjunctivae/corneas clear. No icterus. No ptosis. Neck: trach Oral: limited Cardiovascular: S1, S2 + Respiratory: AE fair bilaterally and equal GI: Soft, bowel sounds +, PEG + Musculoskeletal: Anasarca. Bilateral lower extremities with wounds, ischemic digits Skin: No rash or abscess. Hem/Lymphatic: No palpable cervical or supraclavicular nodes. No lymphangitis Psych: no agitation Neurological: awake, on the vent via trach - Constitutional Vitals: Vital Signs Temp Pulse Resp BP Pulse Ox 98.6 F 109 H 23 141/84 99 12/02/20 12:00 12/02/20 12:31 12/02/20 12:31 12/02/20 12:31 12/02/20 12:31 Temperature -Last 24 Hours Temperature 98.6 F Temperature 99.2 F Temperature 97.6 F Temperature 98.4 F Temperature 98.1 F Temperature 98.0 F - Labs CBC & Chem 7: 11/30/20 05:14 11/30/20 05:14 Labs: Abnormal lab results 12/02/20 12/02/20 Range/Units 05:05 11:08 POC Glucose 112 H 130 H (70-105) mg/dL
--- NOTE | 2020-12-02 14:12 | Progress Note ---
Assessment and Plan Assessment and plan: 75-year-old male who is a long-term resident with seizure disorder, hypertension, depression, hyperlipidemia, hypoglycemia, dysphagia, and encephalopathy who is admitted for sepsis, acute kidney injury, urinary tract infection, acute respiratory failure, electrolyte imbalances, infected sacral wound and bilateral pneumonia s/p Sepsis Acute respiratory failure with Hypoxia s/p Cardiovascular shock Infected sacral wound s/p debridement with surgery Generalized anasarca possible acute diastolic congestive heart failure Anemia Afib Bilateral pleural effusion Right and left lung atelectasis secondary to mucous plug s/p Proteus bacteremia s/p MRSA pneumonia s/p Urine tract infection Leukocytosis Acute kidney injury with vasomotor Nephropathy Acute Diarrhea ?C.diff- Test was not performed SFA occlusion - Not a candidate for surgery per Vascular Hyponatremia -ID, cardiology, CCM, surgery, vascular surgery, nephrology, surgery, WOCN consulted, appreciate recommendations -FAZAL, pneumonia, infected sacral wound, acute respiratory failure, leukocytosis, hypotension requiring vasopressor support -s/p Antibiotic therapy -10/26 tracheal aspirate with MRSA, 10/26 blood cultures x2 with Proteus mirab ilis, 10/27 urine culture possible contaminant, 11/15: Trach aspirate positive for staph coccus aureus, 11/06 occult stool positive -On mechanical ventilation, wean as tolerated, VAP bundle, CPAP trials as tolerated -Wound care per nursing -Fentanyl IVP -Midodrine, amiodorone -S/p IVF resuscitation -HIT panel negative -11/21/20 trach/PEG placement with surgery -s/p 5 units PRBC during stay -Not a candidate for vascularization per vascular -Trend CBC and BMP GI/DVT prophylaxis: Lovenox subq, SCDs to bilateral legs while in bed, PPI Dispo: ICU, [facility] The high probability of a clinically significant, sudden or life threatening deterioration of the [pulmonary, cardiac] system(s) required my full and direct attention, intervention and personal management. The aggregate critical care time was [30] minutes. This time is in addition to time spent performing reported procedures but includes the following: [X] Data Review and interpretation [X] Patient assessment and monitoring of vital signs [X] Documentation [X] Medication orders and management History Interval history: This is a 75-year-old male who is a long-term resident with seizure disorder, hypertension, depression, hyperlipidemia, hypoglycemia, dysphagia, and encephalopathy who presents to the emergency department on 10/26 via EMS for tachypnea, dry mucous membranes and hypoxia. Patient was hypotensive, febrile to 103 degrees and hypoxic in the emergency department therefore he was intubated and central IV access was obtained. Patient received 3.5 L of IV fluid in the emergency department. Patient was admitted to the hospital service with consults to CCM, surgery, WOCN and ID for Sepsis, acute kidney injury, urinary tract infection, acute respiratory failure, electrolyte imbalances, infected sacral wound and bilateral pneumonia. 10/27: Patient received additional 4 L LR for fluid resuscitation and CV monitoring was initiated. Patient is on Levophed. ID added Flagyl to vancomycin and cefepime. His trach aspirate grew staph coccus aureus. At the time my examination patient the fentanyl drip was held by RN and he was on 14 MCG of Levophed. This morning he was on assist control 450/20/6/.100. We will give additional bolus of fluids with goal CVP 10-12 and repeat labs in AM. Surgery was consulted to possible debridement. 10/28: Overnight it was noted that patient went into SVT and he was given adenosine 6 mg/12 mg / 12 mg once and was started on a Cardizem drip after no response to amnio bolus and cardiology was consulted. Currently patient remains on Levophed drip and is hypotensive and received additional 2 L of bolus for goal CVP of 10-12. Infectious disease changed cefepime/Flagyl to meropenem for GNR in his blood cultures 09/04 and will continue vancomycin. Patient currently was not well controlled on max Cardizem and cardiology initiated amiodarone. Patient still is very tachycardic. Patient is hypomagnesemic and we will replete his Mg and recheck level. We will give the patient additional to complete resolve LR this afternoon. Patient has a standing order per [facility] to bolus the patient with LR for CVP goal of 10-12. This morning he is hyperchlormeic, metabolic acidotic (bicarb drip initiated) and his BUN/ creatinine slightly elevated. Patient still remains lactic acidotic. 10/29: Patient's blood culture speciated to Proteus and his tracheal aspirate is MRSA. He is currently on ceftriaxone, Flagyl and vancomycin. Patient heart rate consistently is 110-150s and cardiology has given him an amiodarone bolus today and he remains on amiodarone drip. He looks much started on IV digoxin. This morning 4 L LR bolus was ordered and we will bolus an additional 4 L of LR this afternoon. Patient still has lactic acidosis, metabolic acidosis, leukocytosis and hyperchloremia. On examination this morning patient is more edematous and he remains on Levophed and amnio drip. 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 Remains on amio, levo and sedated with fentanyl. He is hypokalemic today which was repleted, h/h 02/18 and he is being type and crossed today with 2 units PRBC ordered to be transfused. Plt drop noted, heparin discontinued and HIT ordered. Bicarb gtt discontinued. No acute events overnight. 10/31: Patient hypomagnesemia today which was repleted and cardiology has changed his IV amiodarone to p.o. Patient will get albumin per [facility]. At the time my examination patient is on assist control 450/20/6/0.40. 11/03: At the time my examination patient is on assist control 450/20/6/0.25 and sedated with fentanyl and on Levophed at 4.Patient's leukocytosis is improving he received Albumin this weekend. Patient is hypokalemic, hypomagnesemic, hypocalcemic today. We will repeat his electrolytes and recheck a BMP in the a.m. Patient received 2 units PRBC on 10/30 and his hemoglobin has been trending down. We will recheck in the a.m. 11/04: At the time of my examination patient was on Levophed 3 mcg and on VZV/CPAP 450/20/6/0.35. Patient still has leukocytosis, respiratory alkalosis, hyponatremia, hypochloremia, hypocalcemia. Today his magnesium and potassium repleted with bolus of potassium 4/magnesium 2. He received 60 mcg KCl p.o., 40 mEq of KCl IV and 2 g of magnesium sulfate. We will recheck BMP and mag and a.m. Surgery has deemed the patient to unstable for further debulking. We also consulted vascular surgery for PVD as patient has discoloration to BLE /feet. 11/05: Vascular surgery will obtain bilateral lower extremity arterial duplex to evaluate arterial flow and recommends adding as FWF to tube feedings in assisting to wean off of vasopressors. Patient has hypokalemia, hypophosphatemia and normal to low magnesium. Magnesium, potassium and phosphate have been repleted. Patient still remains on ventilator support but on CPAP trial this morning. Patient HIT is still pending. This morning at the time of my examination patient was on assist-control 450/20/6/0.35 and he tolerated CPAP trial for 4 hours yesterday. He was on Levophed 0.5 and his rectal tube output was noted at 1000 mL. 11/06: This morning patient was on a CPAP trial and became hypoxic with SPO2 into the 80s and was switched back to assist control. Patient's vent settings are assist control tidal and 450, rate 20, PEEP 6, FiO2 0.25. Today patient has le ukocytosis, hypernatremia, hyperchloremia, hypocalcemia and hypophosphatemia. We will repeat a phosphate. His free water flushes have been increased and his magnesium has been repleted again. Patient has been started on Lovenox given improvement in his platelet count and on midodrine to help keep Levophed off. Infectious disease will continue p.o. vancomycin for total of 10 days. 11/07: Patient failed his CPAP trial yesterday and has been placed on CPAP 05/06 again this morning by RT. Overnight patient was rested on assist control tolerance by 50, rate of 20, pressure support 6 and FiO2 30%. His lab work is still pending for this morning. On repeat his phosphorus was 4.50 yesterday and repletion was discontinued. 11/08/2020; patient is off pressors currently on midodrine. Patient is on ceftriaxone and vancomycin. Patient is on assist control. Patient was evaluated by vascular surgery for peripheral vascular disease with SFA occlusion and recommend no intervention at this time. Prognosis is guarded. Patient is on 2 L of intranasal oxygen. We will put speech therapy evaluation. 11/09/2020; patient is currently off pressors and on midodrine. Continue with ceftriaxone, Flagyl and vancomycin per ID recommendation. Patient's blood culture grew Proteus mirabilis and tracheal aspirate grew MRSA. Patient was evaluated by vascular surgery for PVD with SFA occlusion and recommend no intervention at this time. Patient is on 2 L of intranasal oxygen. Currently patient is on tube feeding and follow speech therapy evaluation. 11/10: Overnight noted to have increased RR, ? Awaiting speech eval considering patient still on Tube feeds. Continue to monitor Hypernatremia. Antibiotics today will be D12/14. Will continue discharge planning on discussion with CM. Patient nonrebreather. Possibly back on congestive heart failure will need appropriate diuresis. Transferred back to [facility]. Discussed with dowel setting machine operator and also with cardiology. 11/11: Remains lethargic remains in respiratory distress chest x-ray shows right lung collapse likely secondary to mucous plug. Discussed with dowel setting machine operator will likely undergo a bronchoscopy today. We will also continue to monitor as we did suggest possible pleural effusion which we think may be less likely but if that seems to be the case we will send patient for thoracentesis following the bronchoscopy. Continue to monitor hemoglobin continue to monitor diarrhea antibiotics management per infectious disease. I did speak and update patient's cousin yesterday. Patient still with edema will await cardiology reevaluation for possible further diuresis. 11/12: Patient for Bronchoscopy today. Continue supportive care 11/13: Patient Clinically improving, tolerated Bronchoscopy yesterday. Awaiting am labs today. Overnight had bradycardia. Continue weaning oxygen. Discussed with bad cloth checker patient did have bronchial plug plus pleural effusion but will address. Will monitor serial x-rays. Discussed with nursing staff about my discussion with the brother. Continue supportive care. PER Brother,([phone] patient has had recurrent knee aspiration. Cardiology to re-evaluate today for Bradycardia noted overnight 11/14: Patient had a repeat bronchoscopy yesterday of the right lung due to mucous plug. Supervisor Telephone Answering Service did have a conversation with the cousin as one of the considerations may be a trach due to recurrent pulmonary mucous plug and also significant debility for patient's overall medical condition. And his inability to maintain his airway. We will start him on a low round of D5 until diet is established. We will continue to monitor clinical status this morning. Plan discussed with nursing staff patient and also with title one kindergarten teacher 11/15: Continues to show some improvement, will check CXR today. Wean oxygen as tolerated, will likely need Trach per pulmonary. WBC improving, will monitor Sodium level. Patient on dopamin. 11/16: Patient overnight required intubation due to worsening respiratory failure secondary to complete opacification of the right lung again. This has appeared to cleared up this morning following the intuabation. Cousin advised of the finding, he will try to get us all his records because he believes that the patient has had a trach done before but is not sure. Started on Pressors due to hypotension 11/17: Today general surgery was consulted for trach/PEG placement, patient grew staph and tracheal aspirate and his cefepime was stopped and [facility] ordered a trial dose of Lasix. At the time my examination patient was on 1 mcg of fentanyl and dopamine 5 mcg/kg per cardiology. He has hyperchloremia and his lab work and is anemic today at 6.6/20.2. Patient received 1 unit PRBC. We will obtain a CBC in the a.m. 11/18: No acute events reported overnight, patient was given Lasix again by [facility], surgery has requested transfusion of one 1 unit PRBC despite H/H being 7.4/23.4 and plans to do a tracheostomy and plans to perform PEG and trach placement on 11/21/2020. We will follow up BMP and CBC in the a.m. Coags ordered. 11/19: Patient's next of kin still Mr. Buckley's next of kin/POA is still undecided about trach/PEG, surgeon aware. [facility] has given the patient another dose of Lasix and he was noted to be in atrial fibrillation with RVR this morning. Cardiology is aware and they have opted to resume amiodarone drip for rate control. We will obtain a BMP in the a.m. 11/20: At the time of examination patient remains on amiodarone 0.05 mcg and fentanyl 1 mcg on assist control tidal volume 500, rate 20, PEEP 6, FiO2 of 40%. Patient will have Lasix dose again. Dr. Quintanilla updated the family today. 11/21: Patient remains atrial fibrillation but is better rate controlled. Patient was taking to the OR for trach/PEG General surgery. No acute events reported overnight. Patient was given diuresed again and we will recheck a BMP in the a.m. 11/22. Patient tolerated tracheostomy. Alert no new concerns. Patient able to not that he is not in pain. 11/23 patient appears to be tolerating PEG tube feedings able to use tube feedin no new concerns over p.m. alert improving respiratory failure 11/24: No acute events overgnight. At the time my examination patient was on assist control tidal volume 500, rate 12, PEEP 6, FiO2 50%. Patient fentanyl drip discontinued and placed on IV push fentanyl 50 mcg every 2 hours. JENNI brooke right IJ. 11/25: Continue CPAP trials as tolerated, amiodarone decreased, midodrine and metoprolol initiated by cardiology. Patient had an episode of emesis however he denied being nauseous and did not have any emesis when trach suctioned. Patient remains afebrile. Midline was placed yesterday and IJ removed. Patient has leukocytosis but remains off of vasopressors, antibiotics and is febrile. At the time of examination patient is on assist control 21 500, rate 20, PEEP 6 and FiO2 45%. 11/26: Cardiology has increased his metoprolol and decreased his amiodarone due to soft blood pressures. Patient is adamant that he would like to go home. We will continue CPAP trials. 11/27: Patient CXR shows pulmonary edema and we will repeat Lasix. Continue CPAP trials 11/29: Patient on mechanical ventilation with s/p trach/PEG on 11/21/2020. Patient currently with PSV/CPAP mode FiO2 30%, PEEP of 6 and pressure support of 12. Continue vent weaning per pulmonary. Continue fentanyl and wean as tolerated. Tracheostomy care, secretion control and airway management. Gastrostomy tube care. Tube feedings with aspiration precautions. Continue midodrine and amiodarone. 11/30: Patient completed antibiotics. PSV trials failed yesterday. Continue PSV trials. Patient currently with PSV setting with FiO2 30%, pressure support 10 and PEEP of 6. Cont. Albuterol nebs plus CPT vest. Continue tube feedings with aspiration precautions. Tracheostomy care, secretion control and airway management. LTAC placement pending. 12/01: Continue CPAP trials. Awaiting placement. Continue current medical management. 12/02: Patient will be tried CPAP trials today, will receive Lasix again, still awaiting placement. His home med of carbamazepine has been restarted. We will gradually add home medicaitons. Hospitalist Physical - Constitutional Vitals: Temp Pulse Resp BP Pulse Ox 98.6 F 104 H 20 141/84 97 12/02/20 12:00 12/02/20 14:01 12/02/20 14:01 12/02/20 14:01 12/02/20 14:01 General appearance: Present: no acute distress, other (Patient resting comfortably on mechanical ventilation, patient is agitated) - EENT Eyes: Present: PERRL, EOM intact ENT: poor dentition - Neck Neck: Present: normal ROM - Respiratory Respiratory effort: normal Respiratory: bilateral: CTA - Cardiovascular Rhythm: irregularly irregular Heart Sounds: Present: S1 & S2. Absent: systolic murmur, diastolic murmur - Extremities Extremities: no ischemia, pulses intact, pulses symmetrical, normal temperature, normal color Extremity abnormal: edema Peripheral Pulses: within normal limits - Abdominal General gastrointestinal: soft, non-tender, non-distended, normal bowel sounds - Integumentary Integumentary: Present: clear, warm, dry - Psychiatric Psychiatric: cooperative - Neurologic Neurologic: CNII-XII intact, no focal deficits, moves all extremities - Allied Health Allied health notes reviewed: nursing, RT HEART Score - HEART Score EKG: Non-specific Age: > 65 Risk factors: > 3 risk factors or hx of atherosclerotic disease Troponin: Troponin T 0.123 ng/mL (0.00-0.029) H* 11/13/20 23:15 Troponin: < normal limit - Critical Actions Critical Actions: 4-6 pts:12-16.6% risk of adverse cardiac event. Should be admitted Results - Labs CBC & Chem 7: 11/30/20 05:14 11/30/20 05:14 Labs: Laboratory Last Values WBC 15.6 K/mm3 (4.5-11.0) H 11/30/20 05:14 RBC 2.46 M/mm3 (3.65-5.03) L 11/30/20 05:14 Hgb 7.7 gm/dl (11.8-15.2) L 11/30/20 05:14 Hct 23.8 % (35.5-45.6) L 11/30/20 05:14 MCV 97 fl (84-94) H 11/30/20 05:14 MCH 31 pg (28-32) 11/30/20 05:14 MCHC 32 % (32-34) 11/30/20 05:14 RDW 17.2 % (13.2-15.2) H 11/30/20 05:14 Plt Count 407 K/mm3 (140-440) 11/30/20 05:14 Lymph % (Auto) 9.5 % (13.4-35.0) L 11/30/20 05:14 [place] % (Auto) 10.3 % (0.0-7.3) H 11/30/20 05:14 Eos % (Auto) 0.5 % (0.0-4.3) 11/30/20 05:14 Baso % (Auto) 0.4 % (0.0-1.8) 11/30/20 05:14 Lymph # (Auto) 1.5 K/mm3 (1.2-5.4) 11/30/20 05:14 [place] # (Auto) 1.6 K/mm3 (0.0-0.8) H 11/30/20 05:14 Eos # (Auto) 0.1 K/mm3 (0.0-0.4) 11/30/20 05:14 Baso # (Auto) 0.1 K/mm3 (0.0-0.1) 11/30/20 05:14 Add Manual Diff Complete 11/23/20 10:23 Total Counted 100 11/23/20 10:23 Seg Neutrophils % 79.3 % (40.0-70.0) H 11/30/20 05:14 Seg Neuts % (Manual) 94.0 % (40.0-70.0) H 11/23/20 10:23 Band Neutrophils % 17.0 % 10/27/20 03:30 Lymphocytes % (Manual) 5.0 % (13.4-35.0) L 11/23/20 10:23 Monocytes % (Manual) 1.0 % (0.0-7.3) 11/23/20 10:23 Eosinophils % (Manual) 2.0 % (0.0-4.3) 10/27/20 03:30 Metamyelocytes % 4.0 % 10/27/20 03:30 Nucleated RBC % Not Reportable 11/23/20 10:23 Seg Neutrophils # 12.3 K/mm3 (1.8-7.7) H 11/30/20 05:14 Seg Neutrophils # Man 10.6 K/mm3 (1.8-7.7) H 11/23/20 10:23 Band Neutrophils # 0.0 K/mm3 11/23/20 10:23 Lymphocytes # (Manual) 0.6 K/mm3 (1.2-5.4) L 11/23/20 10:23 Abs React Lymphs (Man) 0.0 K/mm3 11/23/20 10:23 Monocytes # (Manual) 0.1 K/mm3 (0.0-0.8) 11/23/20 10:23 Eosinophils # (Manual) 0.0 K/mm3 (0.0-0.4) 11/23/20 10:23 Basophils # (Manual) 0.0 K/mm3 (0.0-0.1) 11/23/20 10:23 Metamyelocytes # 0.0 K/mm3 11/23/20 10:23 Myelocytes # 0.0 K/mm3 11/23/20 10:23 Promyelocytes # 0.0 K/mm3 11/23/20 10:23 Blast Cells # 0.0 K/mm3 11/23/20 10:23 WBC Morphology Not Reportable 11/23/20 10:23 Hypersegmented Neuts Not Reportable 11/23/20 10:23 Hyposegmented Neuts Not Reportable 11/23/20 10:23 Hypogranular Neuts Not Reportable 11/23/20 10:23 Smudge Cells Not Reportable 11/23/20 10:23 Toxic Granulation Not Reportable 11/23/20 10:23 Toxic Vacuolation Not Reportable 11/23/20 10:23 Dohle Bodies Not Reportable 11/23/20 10:23 Pelger-Huet Anomaly Not Reportable 11/23/20 10:23 Kassi Rods Not Reportable 11/23/20 10:23 Platelet Estimate Consistent w auto 11/23/20 10:23 Clumped Platelets Not Reportable 11/23/20 10:23 Plt Clumps, EDTA Not Reportable 11/23/20 10:23 Large Platelets Not Reportable 11/23/20 10:23 Giant Platelets Not Reportable 11/23/20 10:23 Platelet Satelliting Not Reportable 11/23/20 10:23 Plt Morphology Comment Not Reportable 11/23/20 10:23 RBC Morphology Normal 11/23/20 10:23 Dimorphic RBCs Not Reportable 11/23/20 10:23 Polychromasia Not Reportable 11/23/20 10:23 Hypochromasia Not Reportable 11/23/20 10:23 Poikilocytosis Not Reportable 11/23/20 10:23 Anisocytosis Not Reportable 11/23/20 10:23 Microcytosis Not Reportable 11/23/20 10:23 Macrocytosis Not Reportable 11/23/20 10:23 Spherocytes Not Reportable 11/23/20 10:23 Pappenheimer Bodies Not Reportable 11/23/20 10:23 Sickle Cells Not Reportable 11/23/20 10:23 Target Cells Not Reportable 11/23/20 10:23 Tear Drop Cells Not Reportable 11/23/20 10:23 Ovalocytes Not Reportable 11/23/20 10:23 Helmet Cells Not Reportable 11/23/20 10:23 [place] Bodies Not Reportable 11/23/20 10:23 [place] Rings Not Reportable 11/23/20 10:23 [place] Cells Not Reportable 11/23/20 10:23 Bite Cells Not Reportable 11/23/20 10:23 Crenated Cell Not Reportable 11/23/20 10:23 Elliptocytes Not Reportable 11/23/20 10:23 Acanthocytes (Spur) Not Reportable 11/23/20 10:23 Rouleaux Not Reportable 11/23/20 10:23 Hemoglobin C Crystals Not Reportable 11/23/20 10:23 Schistocytes Not Reportable 11/23/20 10:23 Malaria parasites Not Reportable 11/23/20 10:23 Richard Bodies Not Reportable 11/23/20 10:23 Hem Pathologist Commnt No 11/23/20 10:23 PT 14.7 Sec. (12.2-14.9) 11/19/20 06:36 INR 1.15 (0.87-1.13) H 11/19/20 06:36 APTT 27.9 Sec. (24.2-36.6) 10/26/20 17:25 Heparin Anti-Xa, Unfract Negative (Negative) 11/03/20 11:01 ABG pH 7.515 (7.320-7.450) H 11/28/20 03:56 POC ABG pCO2 38.5 mmHg (32.0-48.0) 11/28/20 03:56 ABG pCO2 43.4 mm Hg 11/19/20 Unknown POC ABG pO2 74.5 mmHg (83-108) L 11/28/20 03:56 ABG pO2 72.4 mm Hg (80.0-90.0) L 11/19/20 Unknown POC ABG HCO3 30.4 11/28/20 03:56 ABG HCO3 26.9 mmol/L (20.0-26.0) H 11/19/20 Unknown ABG O2 Saturation 95.8 (0-100) 11/28/20 03:56 ABG O2 Content 11.3 (0.0-44) 11/19/20 Unknown POC ABG Base Excess 6.9 11/28/20 03:56 ABG Base Excess 2.0 mmol/L (-2.0-3.0) 11/19/20 Unknown ABG Hemoglobin 8.4 (12.0-17.5) L 11/28/20 03:56 ABG Oxyhemoglobin 94.8 (94-98) 11/28/20 03:56 ABG Carboxyhemoglobin 2.0 % (0.0-5.0) 11/19/20 Unknown ABG Methemoglobin 0.3 (0.0-1.5) 11/28/20 03:56 ABG Sodium 136.5 mmol/L (136.0-145.0) 11/28/20 03:56 ABG Potassium 3.9 mmol/L (3.40-4.50) 11/28/20 03:56 ABG Chloride 104.0 mmol/L (98-107) 11/28/20 03:56 ABG Glucose 130 mg/dL (65-95) H 11/28/20 03:56 Oxyhemoglobin 94.1 % (95.0-99.0) L 11/19/20 Unknown Carboxyhemoglobin 0.7 (0.5-1.5) 11/28/20 03:56 FiO2 30 % 11/19/20 Unknown FiO2 % 30.0 11/28/20 03:56 Sodium 138 mmol/L (137-145) 11/30/20 05:14 Potassium 4.0 mmol/L (3.6-5.0) 11/30/20 05:14 Chloride 103.0 mmol/L (98-107) 11/30/20 05:14 Carbon Dioxide 30 mmol/L (22-30) 11/30/20 05:14 Anion Gap 9 mmol/L 11/30/20 05:14 BUN 21 mg/dL (9-20) H 11/30/20 05:14 Creatinine 0.4 mg/dL (0.8-1.3) L 11/30/20 05:14 Estimated GFR > 60 ml/min 11/30/20 05:14 BUN/Creatinine Ratio 53 % 11/30/20 05:14 Glucose 126 mg/dL (75-100) H 11/30/20 05:14 POC Glucose 130 mg/dL (70-105) H 12/02/20 11:08 Hemoglobin A1c 5.5 % (4-6) 10/27/20 04:42 Lactic Acid 4.30 mmol/L (0.7-2.0) H* 10/31/20 Unknown Calcium 7.7 mg/dL (8.4-10.2) L 11/30/20 05:14 Phosphorus 4.50 mg/dL (2.5-4.5) D 11/06/20 13:03 Magnesium 1.70 mg/dL (1.7-2.3) 11/21/20 09:47 Total Bilirubin < 0.20 mg/dL (0.1-1.2) 11/27/20 05:55 AST 8 units/L (5-40) 11/27/20 05:55 ALT 8 units/L (7-56) 11/27/20 05:55 Alkaline Phosphatase 87 units/L (35-129) 11/27/20 05:55 Total Creatine Kinase 31 units/L (55-170) L 10/26/20 17:28 Troponin T 0.123 ng/mL (0.00-0.029) H* 11/13/20 23:15 Total Protein 6.1 g/dL (6.3-8.2) L 11/27/20 05:55 Albumin 1.7 g/dL (3.9-5) L 11/27/20 05:55 Albumin/Globulin Ratio 0.4 % 11/27/20 05:55 Triglycerides 190 mg/dL (2-149) H 10/26/20 17:25 Cholesterol 92 mg/dL (50-199) 10/26/20 17:25 LDL Cholesterol Direct 33 mg/dL (50-130) L 10/26/20 17:25 HDL Cholesterol 18 mg/dL (40-59) L 10/26/20 17:25 Cholesterol/HDL Ratio 5.11 % 10/26/20 17:25 Serotonin Release Assay See scanned results 11/03/20 11:01 TSH 1.490 mlU/mL (0.270-4.200) 10/26/20 17:28 Arterial Blood Glucose 130 mg/dL (65-95) H 11/28/20 03:56 Arterial Blood Ionized Calcium 4.5 mg/dL (4.6-5.3) L 11/28/20 03:56 Urine Color Yellow (Yellow) 10/27/20 Unknown Urine Turbidity Turbid (Clear) 10/27/20 Unknown Urine pH 8.0 (5.0-7.0) H 10/27/20 Unknown Ur Specific [place] 1.020 (1.003-1.030) 10/27/20 Unknown Urine Protein >500 mg/dL (Negative) 10/27/20 Unknown Urine Glucose (UA) Neg mg/dL (Negative) 10/27/20 Unknown Urine Ketones Neg mg/dL (Negative) 10/27/20 Unknown Urine Blood Sm (Negative) 10/27/20 Unknown Urine Nitrite Neg (Negative) 10/27/20 Unknown Urine Bilirubin Neg (Negative) 10/27/20 Unknown Urine Urobilinogen < 2.0 mg/dL (<2.0) 10/27/20 Unknown Ur Leukocyte Esterase Mod (Negative) 10/27/20 Unknown Urine WBC (Auto) > 182.0 /HPF (0.0-6.0) H 10/27/20 Unknown Urine RBC (Auto) 35.0 /HPF (0.0-6.0) 10/27/20 Unknown Urine WBC Clumps 3+ /HPF 10/27/20 Unknown Urine Mucus 3+ /HPF 10/27/20 Unknown Urine Yeast (Budding) 3+ /HPF 10/27/20 Unknown Vancomycin Trough 18.0 ug/mL (5.0-20.0) 11/19/20 09:06 Salicylates < 0.3 mg/dL (2.8-20.0) L 10/26/20 17:28 Acetaminophen 5.0 ug/mL (10.0-30.0) L 10/26/20 17:28 Heparin-induced Plt Ab Negative (Negative) 11/03/20 11:01 UF Heparin High Dose 0 % Release 11/03/20 11:01 MOISES UFH Low Dose 0.1 2 % Release 11/03/20 11:01 MOISES UFH Low Dose 0.5 0 % Release 11/03/20 11:01 Coronavirus (PCR) Negative (Negative) 10/27/20 Unknown Blood Type O POSITIVE 11/17/20 11:10 Antibody Screen Negative 11/17/20 11:10 Crossmatch See Detail 11/17/20 11:10 Rivas/IV: Voiding Method Indwelling Catheter Active Medications - Current Medications Current Medications: Generic Name Dose Route Start Last Admin Trade Name Freq PRN Reason Stop Dose Admin Acetaminophen 650 mg 10/26/20 22:22 11/30/20 12:01 Acetaminophen 325 Mg Tab PO 650 mg Q4H PRN Administration Pain MILD(1-3)/Fever >100.5/TIERNEY Albuterol 2.5 mg 11/11/20 14:00 12/01/20 20:54 Albuterol 2.5 Mg/3 Ml Nebu IH 2.5 mg TIDRT MARSHALL Administration Amiodarone HCl 200 mg 11/25/20 10:00 12/02/20 09:51 Amiodarone 200 Mg Tab PO 200 mg BID MARSHALL Administration Lipase/Protease/Amylase 1 each 10/28/20 13:18 Lipase 10,500/Protease 25,000/Amylase 43,750 (Units) Dr Casper FEEDTUBE PRN PRN For Clogged Feeding Tube Carbamazepine 200 mg 12/02/20 10:00 12/02/20 09:49 Carbamazepine 200 Mg Tab PO 200 mg TID MARSHALL Administration Enoxaparin Sodium 40 mg 11/22/20 22:00 12/01/20 21:24 Enoxaparin 40 Mg/0.4 Ml Inj SUB-Q 40 mg QDAY@2200 MARSHALL Administration Protocol Famotidine 20 mg 11/24/20 22:00 12/02/20 09:49 Famotidine 20 Mg Tab PO 20 mg BID MARSHALL Administration Fentanyl 50 mcg 11/15/20 22:30 11/28/20 01:00 Fentanyl 100 Mcg/2 Ml Inj IV 50 mcg Q10MIN PRN Administration ANALGESIA Furosemide 20 mg 12/02/20 10:00 12/02/20 09:49 Furosemide 20 Mg/2 Ml Inj IV 12/04/20 10:01 20 mg DAILY MARSHALL Administration Hydrophilic Ointment 1 applic 11/15/20 22:30 Lip Therapy Vaseline TP Q2HR PRN Dry Lips Norepinephrine 4 mg in 250 mls @ 7.5 mls/hr 11/15/20 23:45 11/17/20 01:37 Levophed Drip 4 Mg/Ns 250 Ml IV 0 mcg/min TITR MARSHALL 0 mls/hr Titration Protocol 2 MCG/MIN Metoprolol Tartrate 25 mg 12/02/20 14:00 Metoprolol Tartrate 25 Mg Tab PO TID MARSHALL Midodrine 10 mg 11/06/20 12:00 12/02/20 11:17 Midodrine 5 Mg Tab PO 10 mg TID@0800,1200,1600 MARSHALL Administration Multi-Ingred Cream/Lotion/Oil/Oint 1 applic 11/15/20 22:30 Mineral Oil/Petrolatum, White Ophth Oint 3.5 Gm OU Q4HR PRN Dry Eye(s) Simple Syrup 15 ml 10/28/20 13:18 11/10/20 16:01 Simple Syrup 15 Ml FEEDTUBE 15 ml PRN PRN Administration Hypoglycemia Simple Syrup 30 ml 10/28/20 13:18 Simple Syrup 15 Ml FEEDTUBE PRN PRN Hypoglycemia Sodium Bicarbonate 325 mg 10/28/20 13:18 Sodium Bicarbonate 325 Mg Tab FEEDTUBE PRN PRN For Clogged Feeding Tube Sodium Hypochlorite 1 applic 10/28/20 10:00 12/02/20 09:51 Sodium Hypochlorite, [place]'s 1/2 Strength (0.25%) 473 Ml Topical Soln TP 1 applicatio BID MARSHALL Administration Nutrition/Malnutrition Assess - Dietary Evaluation Nutrition/Malnutrition Findings: Nutrition Notes Start: 10/27/20 09:15 Freq: Status: Active Protocol: Document 12/02/20 10:15 AT (Rec: 12/02/20 10:33 AT [email or web address]) Co-Sign 12/02/20 10:15 CW Nutrition Notes Initial or Follow up Reassessment Current Diagnosis Acute Kidney Injury,Decubitus( Pressure Ulcer),Sepsis, Hypertension,Respiratory Failure,Hyperlipidemia Other Pertinent Diagnosis AMS, MRSA, Encephalopathy, Metabiloc Acidosis, pneu ,FTT Current Diet Vital AF at 70 ml/hr Labs/Tests 11/30/20 BUN 21 Cr 0.4 Ca 7.7 Pertinent Medications Lasix Levophed Pancreaze Height 6 ft 2 in Weight 123.7 kg [place] Body Weight (kg) 86.36 BMI 35.0 Weight change and time frame Wt change noted. Weight Status Obese Subjective/Other Information Follow-up for TF tolerance. Pt is s/p trach and PEG. Visited pt at bedside and observed TF running Vital AF at goal rate of 70 mL/hr and is tolerating without incident. Percent of energy/protein needs met: 100%/95% Burn Absent Trauma Absent GI Symptoms Last BM Difficulty In Swallowing,Chewing Skin Integrity/Comment Multiple pressure ulcer,1 infected Current % PO Negligible Minimum of two criteria No physical signs of malnutrition #2 Nutrition Diagnosis Increased nutrient needs ( specify in comment below) Diagnosis Progress(for reassessment Continues documentation) #1 Nutrition Diagnosis Inadequate oral intake Diagnosis Progress(for reassessment Continues documentation) Is patient on ventilator? Yes Is Patient Ambulatory and/or Out of Bed No REE-([facility]-confined to bed) 2449.908 Kcal/Kg value to use for calculation 15 Approximate Energy Requirements Using 1856 kcal/Kg Calculation Used for Recommendations Kcal/kg Additional Notes PRO needs: 126-158 g(1.2-1.5 g /kg AdBW 105 kg) Nutrition Intervention Change Diet Order: Continue Nutrition Support: Vital AF at 70 ml/hr with a free water flush of 115 ml q4h Kcal 2,016 Protein (gm) 126 Fluid (mL) 1,362 Goal #1 TF tolerance Goal #2 Meet at least 75% EER and protein needs via TF Goal #3 wound healing Anticipated Discharge Needs: TF Follow-Up By: 12/05/20 Additional Comments F/U for TF tolerance, stable weight
[2020-12-02] MEDS ORDERED: oxyCODONE /ACETAMINOPHEN 5-325MG TAB PO PRN (14:57)
[2020-12-02] MEDS: ACETAMINOPHEN 325 MG TAB PO PRN (18:09)
[2020-12-02] MEDS: ENOXAPARIN 40 MG/0.4 ML INJ SUB-Q SCH (21:48)
[2020-12-02] MEDS: fentaNYL 100 MCG/2 ML INJ IV PRN (23:53)
[2020-12-03 06:27] LABS: Hematocrit 23.2 % (35.5-45.6); Hemoglobin 7.4 gm/dl (11.8-15.2); Mean Corpuscular HGB Conc 32 % (32-34); Mean Corpuscular Volume 96 fl (84-94); Platelet Count 440 K/mm3 (140-440); Red Blood Count 2.43 M/mm3 (3.65-5.03); Red Cell Distribution Width 17.8 % (13.2-15.2)
[2020-12-03 06:51] LABS: Blood Urea Nitrogen 22 mg/dL (9-20); Calcium 7.7 mg/dL (8.4-10.2); Hemolysis Index 5
[2020-12-03 06:52] LABS: BUN/Creatinine Ratio 55
[2020-12-03] MEDS: ALBUTEROL 2.5 MG/3 ML NEBU IH SCH ×3 (07:54→20:48)
[2020-12-03] MEDS: MIDODRINE 5 MG TAB PO SCH ×3 (08:53→16:02)
[2020-12-03] MEDS: carBAMazepine 200 MG TAB PO SCH ×3 (09:00→21:51)
[2020-12-03] MEDS: FAMOTIDINE 20 MG TAB PO SCH ×2 (09:52→21:55)
[2020-12-03] MEDS: AMIODARONE 200 MG TAB PO SCH ×2 (09:53→21:52)
[2020-12-03] MEDS: FUROSEMIDE 20 MG/2 ML INJ IV SCH (09:54)
[2020-12-03] MEDS: SODIUM HYPOCHLORITE, DAKIN'S 1/2 STRENGTH (0.25%) 473 ML TOPICAL SOLN TP SCH (09:54)
[2020-12-03] MEDS: METOPROLOL TARTRATE 25 MG TAB PO SCH ×2 (09:55→21:53)
--- NOTE | 2020-12-03 10:39 | Progress Note ---
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 Calcium Urine pH Urine WBC (Auto) Vancomycin Trough Salicylates Acetaminophen Crossmatch See Detail 10/30/20 10/30/20 10/30/20 18:53 23:25 Unknown WBC RBC Hgb Hct MCV MCH MCHC RDW Plt Count Lymph % (Auto) Mitchell % (Auto) Mitchell # (Auto) Seg Neutrophils % Seg Neuts % (Manual) Lymphocytes % (Manual) Nucleated RBC % Seg Neutrophils # Seg Neutrophils # Man Lymphocytes # (Manual) Monocytes # (Manual) PT INR ABG pH POC ABG pCO2 POC ABG pO2 ABG pO2 ABG HCO3 ABG O2 Saturation ABG Base Excess ABG Hemoglobin ABG Oxyhemoglobin ABG Sodium ABG Potassium ABG Chloride ABG Glucose Oxyhemoglobin Carboxyhemoglobin Sodium Potassium Chloride Carbon Dioxide BUN Creatinine Glucose POC Glucose 130 H Lactic Acid Calcium Phosphorus Magnesium Total Creatine Kinase Troponin T Total Protein Albumin Triglycerides LDL Cholesterol Direct HDL Cholesterol Arterial Blood Glucose Arterial Blood Ionized Calcium Urine pH Urine WBC (Auto) Vancomycin Trough 21.4 H 22.0 H Salicylates Acetaminophen Crossmatch 10/30/20 10/31/20 10/31/20 Unknown 02:54 03:42 WBC 21.1 H 23.0 H RBC 2.36 L Hgb 7.3 L 11.4 L D Hct 22.7 L 34.1 L D MCV 96 H MCH MCHC RDW 17.1 H 16.2 H Plt Count 73 L 33 L Lymph % (Auto) Mitchell % (Auto) Mitchell # (Auto) Seg Neutrophils % Seg Neuts % (Manual) Lymphocytes % (Manual) Nucleated RBC % Seg Neutrophils # Seg Neutrophils # Man Lymphocytes # (Manual) Monocytes # (Manual) PT INR ABG pH 7.517 H POC ABG pCO2 25.7 L POC ABG pO2 52.3 L ABG pO2 ABG HCO3 ABG O2 Saturation ABG Base Excess ABG Hemoglobin ABG Oxyhemoglobin 90.8 L ABG Sodium ABG Potassium ABG Chloride 109.0 H ABG Glucose 147 H Oxyhemoglobin Carboxyhemoglobin Sodium Potassium Chloride Carbon Dioxide BUN Creatinine Glucose POC Glucose Lactic Acid Calcium Phosphorus Magnesium Total Creatine Kinase Troponin T Total Protein Albumin Triglycerides LDL Cholesterol Direct HDL Cholesterol Arterial Blood Glucose 147 H Arterial Blood Ionized Calcium 4.0 L Urine pH Urine WBC (Auto) Vancomycin Trough Salicylates Acetaminophen Crossmatch 10/31/20 10/31/20 10/31/20 04:37 04:37 05:08 WBC 21.7 H RBC Hgb Hct MCV MCH MCHC RDW 16.1 H Plt Count 39 L Lymph % (Auto) Mitchell % (Auto) Mitchell # (Auto) Seg Neutrophils % Seg Neuts % (Manual) Lymphocytes % (Manual) Nucleated RBC % Seg Neutrophils # Seg Neutrophils # Man Lymphocytes # (Manual) Monocytes # (Manual) PT INR ABG pH POC ABG pCO2 POC ABG pO2 ABG pO2 ABG HCO3 ABG O2 Saturation ABG Base Excess ABG Hemoglobin ABG Oxyhemoglobin ABG Sodium ABG Potassium ABG Chloride ABG Glucose Oxyhemoglobin Carboxyhemoglobin Sodium Potassium Chloride 108.4 H Carbon Dioxide BUN 25 H Creatinine 0.5 L Glucose 140 H POC Glucose 140 H Lactic Acid Calcium 6.1 L Phosphorus Magnesium 1.50 L Total Creatine Kinase Troponin T Total Protein Albumin Triglycerides LDL Cholesterol Direct HDL Cholesterol Arterial Blood Glucose Arterial Blood Ionized Calcium Urine pH Urine WBC (Auto) Vancomycin Trough Salicylates Acetaminophen Crossmatch 10/31/20 10/31/20 10/31/20 11:12 18:50 23:21 WBC RBC Hgb Hct MCV MCH MCHC RDW Plt Count Lymph % (Auto) Mitchell % (Auto) Mitchell # (Auto) Seg Neutrophils % Seg Neuts % (Manual) Lymphocytes % (Manual) Nucleated RBC % Seg Neutrophils # Seg Neutrophils # Man Lymphocytes # (Manual) Monocytes # (Manual) PT INR ABG pH POC ABG pCO2 POC ABG pO2 ABG pO2 ABG HCO3 ABG O2 Saturation ABG Base Excess ABG Hemoglobin ABG Oxyhemoglobin ABG Sodium ABG Potassium ABG Chloride ABG Glucose Oxyhemoglobin Carboxyhemoglobin Sodium Potassium Chloride Carbon Dioxide BUN Creatinine Glucose POC Glucose 125 H 142 H 127 H Lactic Acid Calcium Phosphorus Magnesium Total Creatine Kinase Troponin T Total Protein Albumin Triglycerides LDL Cholesterol Direct HDL Cholesterol Arterial Blood Glucose Arterial Blood Ionized Calcium Urine pH Urine WBC (Auto) Vancomycin Trough Salicylates Acetaminophen Crossmatch 10/31/20 11/01/20 11/01/20 Unknown 03:40 04:21 WBC RBC Hgb Hct MCV MCH MCHC RDW Plt Count Lymph % (Auto) Mitchell % (Auto) Mitchell # (Auto) Seg Neutrophils % Seg Neuts % (Manual) Lymphocytes % (Manual) Nucleated RBC % Seg Neutrophils # Seg Neutrophils # Man Lymphocytes # (Manual) Monocytes # (Manual) PT INR ABG pH 7.489 H POC ABG pCO2 POC ABG pO2 ABG pO2 77.2 L ABG HCO3 ABG O2 Saturation ABG Base Excess ABG Hemoglobin 7.1 L ABG Oxyhemoglobin ABG Sodium ABG Potassium ABG Chloride ABG Glucose Oxyhemoglobin Carboxyhemoglobin Sodium Potassium 3.1 L Chloride 107.1 H Carbon Dioxide BUN 25 H Creatinine 0.5 L Glucose 148 H POC Glucose Lactic Acid 4.30 H* Calcium 6.0 L Phosphorus Magnesium Total Creatine Kinase Troponin T Total Protein Albumin Triglycerides LDL Cholesterol Direct HDL Cholesterol Arterial Blood Glucose Arterial Blood Ionized Calcium Urine pH Urine WBC (Auto) Vancomycin Trough Salicylates Acetaminophen Crossmatch 11/01/20 11/01/20 11/01/20 05:13 11:42 17:38 WBC RBC Hgb Hct MCV MCH MCHC RDW Plt Count Lymph % (Auto) Mitchell % (Auto) Mitchell # (Auto) Seg Neutrophils % Seg Neuts % (Manual) Lymphocytes % (Manual) Nucleated RBC % Seg Neutrophils # Seg Neutrophils # Man Lymphocytes # (Manual) Monocytes # (Manual) PT INR ABG pH POC ABG pCO2 POC ABG pO2 ABG pO2 ABG HCO3 ABG O2 Saturation ABG Base Excess ABG Hemoglobin ABG Oxyhemoglobin ABG Sodium ABG Potassium ABG Chloride ABG Glucose Oxyhemoglobin Carboxyhemoglobin Sodium Potassium Chloride Carbon Dioxide BUN Creatinine Glucose POC Glucose 139 H 139 H 161 H Lactic Acid Calcium Phosphorus Magnesium Total Creatine Kinase Troponin T Total Protein Albumin Triglycerides LDL Cholesterol Direct HDL Cholesterol Arterial Blood Glucose Arterial Blood Ionized Calcium Urine pH Urine WBC (Auto) Vancomycin Trough Salicylates Acetaminophen Crossmatch 11/01/20 11/01/20 11/02/20 23:20 Unknown 04:30 WBC 18.2 H RBC 3.27 L Hgb 9.9 L Hct 30.1 L D MCV MCH MCHC RDW 15.7 H Plt Count 34 L Lymph % (Auto) Mitchell % (Auto) Mitchell # (Auto) Seg Neutrophils % Seg Neuts % (Manual) Lymphocytes % (Manual) Nucleated RBC % Seg Neutrophils # Seg Neutrophils # Man Lymphocytes # (Manual) Monocytes # (Manual) PT INR ABG pH 7.456 H POC ABG pCO2 POC ABG pO2 ABG pO2 ABG HCO3 ABG O2 Saturation ABG Base Excess ABG Hemoglobin 9.2 L ABG Oxyhemoglobin ABG Sodium ABG Potassium ABG Chloride ABG Glucose Oxyhemoglobin Carboxyhemoglobin Sodium Potassium Chloride Carbon Dioxide BUN Creatinine Glucose POC Glucose 168 H Lactic Acid Calcium Phosphorus Magnesium Total Creatine Kinase Troponin T Total Protein Albumin Triglycerides LDL Cholesterol Direct HDL Cholesterol Arterial Blood Glucose Arterial Blood Ionized Calcium Urine pH Urine WBC (Auto) Vancomycin Trough Salicylates Acetaminophen Crossmatch 11/02/20 11/02/20 11/02/20 06:29 08:40 08:40 WBC 16.6 H RBC 2.87 L Hgb 8.8 L Hct 26.6 L MCV MCH MCHC RDW 15.8 H Plt Count 30 L Lymph % (Auto) Mitchell % (Auto) Mitchell # (Auto) Seg Neutrophils % Seg Neuts % (Manual) 97.0 H Lymphocytes % (Manual) 2.0 L Nucleated RBC % 1.0 H Seg Neutrophils # Seg Neutrophils # Man 16.1 H Lymphocytes # (Manual) 0.3 L Monocytes # (Manual) PT INR ABG pH POC ABG pCO2 POC ABG pO2 ABG pO2 ABG HCO3 ABG O2 Saturation ABG Base Excess ABG Hemoglobin ABG Oxyhemoglobin ABG Sodium ABG Potassium ABG Chloride ABG Glucose Oxyhemoglobin Carboxyhemoglobin Sodium Potassium 2.4 L* D Chloride 110.2 H Carbon Dioxide BUN 23 H Creatinine 0.4 L Glucose 154 H POC Glucose 131 H Lactic Acid Calcium 6.1 L Phosphorus Magnesium 1.50 L Total Creatine Kinase Troponin T Total Protein Albumin Triglycerides LDL Cholesterol Direct HDL Cholesterol Arterial Blood Glucose Arterial Blood Ionized Calcium Urine pH Urine WBC (Auto) Vancomycin Trough Salicylates Acetaminophen Crossmatch 11/02/20 11/02/20 11/02/20 13:17 17:25 18:05 WBC RBC Hgb Hct MCV MCH MCHC RDW Plt Count Lymph % (Auto) Mitchell % (Auto) Mitchell # (Auto) Seg Neutrophils % Seg Neuts % (Manual) Lymphocytes % (Manual) Nucleated RBC % Seg Neutrophils # Seg Neutrophils # Man Lymphocytes # (Manual) Monocytes # (Manual) PT INR ABG pH POC ABG pCO2 POC ABG pO2 ABG pO2 ABG HCO3 ABG O2 Saturation ABG Base Excess ABG Hemoglobin ABG Oxyhemoglobin ABG Sodium ABG Potassium ABG Chloride ABG Glucose Oxyhemoglobin Carboxyhemoglobin Sodium Potassium 3.1 L D Chloride Carbon Dioxide BUN Creatinine Glucose POC Glucose 134 H 140 H Lactic Acid Calcium Phosphorus Magnesium Total Creatine Kinase Troponin T Total Protein Albumin Triglycerides LDL Cholesterol Direct HDL Cholesterol Arterial Blood Glucose Arterial Blood Ionized Calcium Urine pH Urine WBC (Auto) Vancomycin Trough Salicylates Acetaminophen Crossmatch 11/02/20 11/03/20 11/03/20 23:36 04:15 05:07 WBC RBC Hgb Hct MCV MCH MCHC RDW Plt Count Lymph % (Auto) Mitchell % (Auto) Mitchell # (Auto) Seg Neutrophils % Seg Neuts % (Manual) Lymphocytes % (Manual) Nucleated RBC % Seg Neutrophils # Seg Neutrophils # Man Lymphocytes # (Manual) Monocytes # (Manual) PT INR ABG pH POC ABG pCO2 POC ABG pO2 ABG pO2 ABG HCO3 ABG O2 Saturation ABG Base Excess ABG Hemoglobin ABG Oxyhemoglobin ABG Sodium ABG Potassium ABG Chloride ABG Glucose Oxyhemoglobin Carboxyhemoglobin Sodium Potassium 3.0 L Chloride 111.8 H Carbon Dioxide BUN 24 H Creatinine 0.3 L Glucose 141 H POC Glucose 127 H 156 H Lactic Acid Calcium 5.8 L* Phosphorus Magnesium 1.60 L Total Creatine Kinase Troponin T Total Protein Albumin Triglycerides LDL Cholesterol Direct HDL Cholesterol Arterial Blood Glucose Arterial Blood Ionized Calcium Urine pH Urine WBC (Auto) Vancomycin Trough Salicylates Acetaminophen Crossmatch 11/03/20 11/03/20 11/04/20 11:14 17:31 00:17 WBC RBC Hgb Hct MCV MCH MCHC RDW Plt Count Lymph % (Auto) Mitchell % (Auto) Mitchell # (Auto) Seg Neutrophils % Seg Neuts % (Manual) Lymphocytes % (Manual) Nucleated RBC % Seg Neutrophils # Seg Neutrophils # Man Lymphocytes # (Manual) Monocytes # (Manual) PT INR ABG pH POC ABG pCO2 POC ABG pO2 ABG pO2 ABG HCO3 ABG O2 Saturation ABG Base Excess ABG Hemoglobin ABG Oxyhemoglobin ABG Sodium ABG Potassium ABG Chloride ABG Glucose Oxyhemoglobin Carboxyhemoglobin Sodium Potassium Chloride Carbon Dioxide BUN Creatinine Glucose POC Glucose 137 H 151 H 156 H Lactic Acid Calcium Phosphorus Magnesium Total Creatine Kinase Troponin T Total Protein Albumin Triglycerides LDL Cholesterol Direct HDL Cholesterol Arterial Blood Glucose Arterial Blood Ionized Calcium Urine pH Urine WBC (Auto) Vancomycin Trough Salicylates Acetaminophen Crossmatch 11/04/20 11/04/20 11/04/20 05:34 05:34 11:16 WBC 21.9 H RBC 2.67 L Hgb 8.2 L Hct 24.8 L MCV MCH MCHC RDW 15.6 H Plt Count 48 L Lymph % (Auto) Mitchell % (Auto) Mitchell # (Auto) Seg Neutrophils % Seg Neuts % (Manual) Lymphocytes % (Manual) Nucleated RBC % Seg Neutrophils # Seg Neutrophils # Man Lymphocytes # (Manual) Monocytes # (Manual) PT INR ABG pH POC ABG pCO2 POC ABG pO2 ABG pO2 ABG HCO3 ABG O2 Saturation ABG Base Excess ABG Hemoglobin ABG Oxyhemoglobin ABG Sodium ABG Potassium ABG Chloride ABG Glucose Oxyhemoglobin Carboxyhemoglobin Sodium 146 H Potassium Chloride 114.6 H Carbon Dioxide BUN 29 H Creatinine 0.3 L Glucose 173 H POC Glucose 156 H Lactic Acid Calcium 5.7 L* Phosphorus Magnesium Total Creatine Kinase Troponin T Total Protein Albumin Triglycerides LDL Cholesterol Direct HDL Cholesterol Arterial Blood Glucose Arterial Blood Ionized Calcium Urine pH Urine WBC (Auto) Vancomycin Trough Salicylates Acetaminophen Crossmatch 11/04/20 11/04/20 11/04/20 11:42 17:18 23:12 WBC RBC Hgb Hct MCV MCH MCHC RDW Plt Count Lymph % (Auto) Mitchell % (Auto) Mitchell # (Auto) Seg Neutrophils % Seg Neuts % (Manual) Lymphocytes % (Manual) Nucleated RBC % Seg Neutrophils # Seg Neutrophils # Man Lymphocytes # (Manual) Monocytes # (Manual) PT INR ABG pH 7.525 H POC ABG pCO2 28.9 L POC ABG pO2 64.3 L ABG pO2 ABG HCO3 ABG O2 Saturation ABG Base Excess ABG Hemoglobin 8.2 L ABG Oxyhemoglobin ABG Sodium ABG Potassium 3.3 L ABG Chloride 115.0 H ABG Glucose 165 H Oxyhemoglobin Carboxyhemoglobin Sodium Potassium Chloride Carbon Dioxide BUN Creatinine Glucose POC Glucose 144 H 155 H Lactic Acid Calcium Phosphorus Magnesium Total Creatine Kinase Troponin T Total Protein Albumin Triglycerides LDL Cholesterol Direct HDL Cholesterol Arterial Blood Glucose 165 H Arterial Blood Ionized Calcium 4.0 L Urine pH Urine WBC (Auto) Vancomycin Trough Salicylates Acetaminophen Crossmatch 11/05/20 11/05/20 11/05/20 04:48 04:48 05:57 WBC 17.4 H RBC 2.49 L Hgb 7.8 L Hct 23.5 L MCV MCH MCHC RDW 16.0 H Plt Count 69 L Lymph % (Auto) Mitchell % (Auto) Mitchell # (Auto) Seg Neutrophils % Seg Neuts % (Manual) Lymphocytes % (Manual) Nucleated RBC % Seg Neutrophils # Seg Neutrophils # Man Lymphocytes # (Manual) Monocytes # (Manual) PT INR ABG pH POC ABG pCO2 POC ABG pO2 ABG pO2 ABG HCO3 ABG O2 Saturation ABG Base Excess ABG Hemoglobin ABG Oxyhemoglobin ABG Sodium ABG Potassium ABG Chloride ABG Glucose Oxyhemoglobin Carboxyhemoglobin Sodium 147 H Potassium 3.5 L Chloride 115.4 H Carbon Dioxide BUN 34 H Creatinine 0.3 L Glucose 154 H POC Glucose 146 H Lactic Acid Calcium 6.1 L Phosphorus 2.00 L Magnesium Total Creatine Kinase Troponin T Total Protein Albumin Triglycerides LDL Cholesterol Direct HDL Cholesterol Arterial Blood Glucose Arterial Blood Ionized Calcium Urine pH Urine WBC (Auto) Vancomycin Trough Salicylates Acetaminophen Crossmatch 11/05/20 11/05/20 11/05/20 11:33 17:52 23:37 WBC RBC Hgb Hct MCV MCH MCHC RDW Plt Count Lymph % (Auto) Mitchell % (Auto) Mitchell # (Auto) Seg Neutrophils % Seg Neuts % (Manual) Lymphocytes % (Manual) Nucleated RBC % Seg Neutrophils # Seg Neutrophils # Man Lymphocytes # (Manual) Monocytes # (Manual) PT INR ABG pH POC ABG pCO2 POC ABG pO2 ABG pO2 ABG HCO3 ABG O2 Saturation ABG Base Excess ABG Hemoglobin ABG Oxyhemoglobin ABG Sodium ABG Potassium ABG Chloride ABG Glucose Oxyhemoglobin Carboxyhemoglobin Sodium Potassium Chloride Carbon Dioxide BUN Creatinine Glucose POC Glucose 144 H 136 H 151 H Lactic Acid Calcium Phosphorus Magnesium Total Creatine Kinase Troponin T Total Protein Albumin Triglycerides LDL Cholesterol Direct HDL Cholesterol Arterial Blood Glucose Arterial Blood Ionized Calcium Urine pH Urine WBC (Auto) Vancomycin Trough Salicylates Acetaminophen Crossmatch 11/06/20 11/06/20 11/06/20 05:36 06:45 06:45 WBC 15.0 H RBC 2.33 L Hgb 7.2 L Hct 22.1 L MCV 95 H MCH MCHC RDW 16.2 H Plt Count 103 L Lymph % (Auto) Mitchell % (Auto) Mitchell # (Auto) Seg Neutrophils % Seg Neuts % (Manual) Lymphocytes % (Manual) Nucleated RBC % Seg Neutrophils # Seg Neutrophils # Man Lymphocytes # (Manual) Monocytes # (Manual) PT INR ABG pH POC ABG pCO2 POC ABG pO2 ABG pO2 ABG HCO3 ABG O2 Saturation ABG Base Excess ABG Hemoglobin ABG Oxyhemoglobin ABG Sodium ABG Potassium ABG Chloride ABG Glucose Oxyhemoglobin Carboxyhemoglobin Sodium 148 H Potassium Chloride 118.2 H Carbon Dioxide BUN 32 H Creatinine 0.4 L Glucose 153 H POC Glucose 140 H Lactic Acid Calcium 6.4 L Phosphorus 0.90 L* D Magnesium Total Creatine Kinase Troponin T Total Protein 5.0 L Albumin 1.4 L Triglycerides LDL Cholesterol Direct HDL Cholesterol Arterial Blood Glucose Arterial Blood Ionized Calcium Urine pH Urine WBC (Auto) Vancomycin Trough Salicylates Acetaminophen Crossmatch 11/06/20 11/06/20 11/06/20 11:32 17:37 23:19 WBC RBC Hgb Hct MCV MCH MCHC RDW Plt Count Lymph % (Auto) Mitchell % (Auto) Mitchell # (Auto) Seg Neutrophils % Seg Neuts % (Manual) Lymphocytes % (Manual) Nucleated RBC % Seg Neutrophils # Seg Neutrophils # Man Lymphocytes # (Manual) Monocytes # (Manual) PT INR ABG pH POC ABG pCO2 POC ABG pO2 ABG pO2 ABG HCO3 ABG O2 Saturation ABG Base Excess ABG Hemoglobin ABG Oxyhemoglobin ABG Sodium ABG Potassium ABG Chloride ABG Glucose Oxyhemoglobin Carboxyhemoglobin Sodium Potassium Chloride Carbon Dioxide BUN Creatinine Glucose POC Glucose 132 H 133 H 145 H Lactic Acid Calcium Phosphorus Magnesium Total Creatine Kinase Troponin T Total Protein Albumin Triglycerides LDL Cholesterol Direct HDL Cholesterol Arterial Blood Glucose Arterial Blood Ionized Calcium Urine pH Urine WBC (Auto) Vancomycin Trough Salicylates Acetaminophen Crossmatch 11/07/20 11/07/20 11/07/20 12:55 16:45 16:45 WBC 12.0 H RBC 3.63 L Hgb 11.4 L D Hct MCV 104 H MCH MCHC 30 L RDW 18.0 H Plt Count 133 L Lymph % (Auto) Mitchell % (Auto) Mitchell # (Auto) Seg Neutrophils % Seg Neuts % (Manual) Lymphocytes % (Manual) Nucleated RBC % Seg Neutrophils # Seg Neutrophils # Man Lymphocytes # (Manual) Monocytes # (Manual) PT INR ABG pH POC ABG pCO2 POC ABG pO2 ABG pO2 ABG HCO3 ABG O2 Saturation ABG Base Excess ABG Hemoglobin 7.7 L ABG Oxyhemoglobin ABG Sodium ABG Potassium ABG Chloride ABG Glucose Oxyhemoglobin 94.9 L Carboxyhemoglobin Sodium 149 H Potassium Chloride 119.8 H Carbon Dioxide BUN 31 H Creatinine 0.4 L Glucose 130 H POC Glucose Lactic Acid Calcium 6.5 L Phosphorus Magnesium Total Creatine Kinase Troponin T Total Protein Albumin Triglycerides LDL Cholesterol Direct HDL Cholesterol Arterial Blood Glucose Arterial Blood Ionized Calcium Urine pH Urine WBC (Auto) Vancomycin Trough Salicylates Acetaminophen Crossmatch 11/07/20 11/08/20 11/08/20 17:23 00:12 06:11 WBC RBC Hgb Hct MCV MCH MCHC RDW Plt Count Lymph % (Auto) Mitchell % (Auto) Mitchell # (Auto) Seg Neutrophils % Seg Neuts % (Manual) Lymphocytes % (Manual) Nucleated RBC % Seg Neutrophils # Seg Neutrophils # Man Lymphocytes # (Manual) Monocytes # (Manual) PT INR ABG pH POC ABG pCO2 POC ABG pO2 ABG pO2 ABG HCO3 ABG O2 Saturation ABG Base Excess ABG Hemoglobin ABG Oxyhemoglobin ABG Sodium ABG Potassium ABG Chloride ABG Glucose Oxyhemoglobin Carboxyhemoglobin Sodium Potassium Chloride Carbon Dioxide BUN Creatinine Glucose POC Glucose 115 H 129 H 109 H Lactic Acid Calcium Phosphorus Magnesium Total Creatine Kinase Troponin T Total Protein Albumin Triglycerides LDL Cholesterol Direct HDL Cholesterol Arterial Blood Glucose Arterial Blood Ionized Calcium Urine pH Urine WBC (Auto) Vancomycin Trough Salicylates Acetaminophen Crossmatch 11/08/20 11/08/20 11/08/20 17:36 23:49 23:58 WBC RBC Hgb Hct MCV MCH MCHC RDW Plt Count Lymph % (Auto) Mitchell % (Auto) Mitchell # (Auto) Seg Neutrophils % Seg Neuts % (Manual) Lymphocytes % (Manual) Nucleated RBC % Seg Neutrophils # Seg Neutrophils # Man Lymphocytes # (Manual) Monocytes # (Manual) PT INR ABG pH POC ABG pCO2 POC ABG pO2 ABG pO2 ABG HCO3 ABG O2 Saturation ABG Base Excess ABG Hemoglobin ABG Oxyhemoglobin ABG Sodium ABG Potassium ABG Chloride ABG Glucose Oxyhemoglobin Carboxyhemoglobin Sodium Potassium Chloride Carbon Dioxide BUN Creatinine Glucose 138 H POC Glucose 38 L 36 L Lactic Acid Calcium Phosphorus Magnesium Total Creatine Kinase Troponin T Total Protein Albumin Triglycerides LDL Cholesterol Direct HDL Cholesterol Arterial Blood Glucose Arterial Blood Ionized Calcium Urine pH Urine WBC (Auto) Vancomycin Trough Salicylates Acetaminophen Crossmatch 11/09/20 11/09/20 11/09/20 05:33 06:00 06:00 WBC 13.1 H RBC 2.35 L Hgb 7.6 L D Hct 22.9 L D MCV 97 H MCH MCHC RDW 16.8 H Plt Count Lymph % (Auto) 9.1 L Mitchell % (Auto) Mitchell # (Auto) Seg Neutrophils % 84.8 H Seg Neuts % (Manual) Lymphocytes % (Manual) Nucleated RBC % Seg Neutrophils # 11.1 H Seg Neutrophils # Man Lymphocytes # (Manual) Monocytes # (Manual) PT INR ABG pH POC ABG pCO2 POC ABG pO2 ABG pO2 ABG HCO3 ABG O2 Saturation ABG Base Excess ABG Hemoglobin ABG Oxyhemoglobin ABG Sodium ABG Potassium ABG Chloride ABG Glucose Oxyhemoglobin Carboxyhemoglobin Sodium 150 H Potassium 3.4 L D Chloride 119.2 H Carbon Dioxide BUN 30 H Creatinine 0.4 L Glucose 137 H POC Glucose 58 L Lactic Acid Calcium 7.2 L Phosphorus Magnesium Total Creatine Kinase Troponin T Total Protein Albumin Triglycerides LDL Cholesterol Direct HDL Cholesterol Arterial Blood Glucose Arterial Blood Ionized Calcium Urine pH Urine WBC (Auto) Vancomycin Trough Salicylates Acetaminophen Crossmatch 11/09/20 11/09/20 11/10/20 06:08 22:16 13:46 WBC 16.1 H RBC 2.52 L Hgb 8.1 L Hct 25.2 L MCV 100 H MCH MCHC RDW 18.2 H Plt Count Lymph % (Auto) Mitchell % (Auto) Mitchell # (Auto) Seg Neutrophils % Seg Neuts % (Manual) 90.0 H Lymphocytes % (Manual) 3.0 L Nucleated RBC % Seg Neutrophils # Seg Neutrophils # Man 14.5 H Lymphocytes # (Manual) 0.5 L Monocytes # (Manual) 1.1 H PT INR ABG pH POC ABG pCO2 POC ABG pO2 ABG pO2 ABG HCO3 ABG O2 Saturation ABG Base Excess ABG Hemoglobin ABG Oxyhemoglobin ABG Sodium ABG Potassium ABG Chloride ABG Glucose Oxyhemoglobin Carboxyhemoglobin Sodium Potassium Chloride Carbon Dioxide BUN Creatinine Glucose POC Glucose 122 H 120 H Lactic Acid Calcium Phosphorus Magnesium Total Creatine Kinase Troponin T Total Protein Albumin Triglycerides LDL Cholesterol Direct HDL Cholesterol Arterial Blood Glucose Arterial Blood Ionized Calcium Urine pH Urine WBC (Auto) Vancomycin Trough Salicylates Acetaminophen Crossmatch 11/10/20 11/10/20 11/11/20 13:46 15:59 11:43 WBC RBC Hgb Hct MCV MCH MCHC RDW Plt Count Lymph % (Auto) Mitchell % (Auto) Mitchell # (Auto) Seg Neutrophils % Seg Neuts % (Manual) Lymphocytes % (Manual) Nucleated RBC % Seg Neutrophils # Seg Neutrophils # Man Lymphocytes # (Manual) Monocytes # (Manual) PT INR ABG pH POC ABG pCO2 POC ABG pO2 ABG pO2 ABG HCO3 ABG O2 Saturation ABG Base Excess ABG Hemoglobin ABG Oxyhemoglobin ABG Sodium ABG Potassium ABG Chloride ABG Glucose Oxyhemoglobin Carboxyhemoglobin Sodium 153 H Potassium Chloride 120.6 H Carbon Dioxide BUN 27 H Creatinine 0.3 L Glucose 112 H POC Glucose 40 L 124 H Lactic Acid Calcium 6.8 L Phosphorus Magnesium Total Creatine Kinase Troponin T Total Protein Albumin Triglycerides LDL Cholesterol Direct HDL Cholesterol Arterial Blood Glucose Arterial Blood Ionized Calcium Urine pH Urine WBC (Auto) Vancomycin Trough Salicylates Acetaminophen Crossmatch 11/11/20 11/11/20 11/11/20 14:38 14:38 14:38 WBC 13.8 H RBC 2.43 L Hgb 7.6 L Hct 24.0 L MCV 99 H MCH MCHC RDW 18.0 H Plt Count Lymph % (Auto) Mitchell % (Auto) Mitchell # (Auto) Seg Neutrophils % Seg Neuts % (Manual) Lymphocytes % (Manual) Nucleated RBC % Seg Neutrophils # Seg Neutrophils # Man Lymphocytes # (Manual) Monocytes # (Manual) PT 15.0 H INR 1.18 H ABG pH POC ABG pCO2 POC ABG pO2 ABG pO2 ABG HCO3 ABG O2 Saturation ABG Base Excess ABG Hemoglobin ABG Oxyhemoglobin ABG Sodium ABG Potassium ABG Chloride ABG Glucose Oxyhemoglobin Carboxyhemoglobin Sodium 154 H Potassium 3.1 L D Chloride 122.1 H Carbon Dioxide BUN 26 H Creatinine 0.4 L Glucose 140 H POC Glucose Lactic Acid Calcium 7.3 L Phosphorus Magnesium Total Creatine Kinase Troponin T Total Protein Albumin Triglycerides LDL Cholesterol Direct HDL Cholesterol Arterial Blood Glucose Arterial Blood Ionized Calcium Urine pH Urine WBC (Auto) Vancomycin Trough Salicylates Acetaminophen Crossmatch 11/11/20 11/11/20 11/12/20 18:39 18:42 00:03 WBC RBC Hgb Hct MCV MCH MCHC RDW Plt Count Lymph % (Auto) Mitchell % (Auto) Mitchell # (Auto) Seg Neutrophils % Seg Neuts % (Manual) Lymphocytes % (Manual) Nucleated RBC % Seg Neutrophils # Seg Neutrophils # Man Lymphocytes # (Manual) Monocytes # (Manual) PT INR ABG pH POC ABG pCO2 POC ABG pO2 ABG pO2 ABG HCO3 ABG O2 Saturation ABG Base Excess ABG Hemoglobin ABG Oxyhemoglobin ABG Sodium ABG Potassium ABG Chloride ABG Glucose Oxyhemoglobin Carboxyhemoglobin Sodium Potassium Chloride Carbon Dioxide BUN Creatinine Glucose POC Glucose 45 L 66 L 108 H Lactic Acid Calcium Phosphorus Magnesium Total Creatine Kinase Troponin T Total Protein Albumin Triglycerides LDL Cholesterol Direct HDL Cholesterol Arterial Blood Glucose Arterial Blood Ionized Calcium Urine pH Urine WBC (Auto) Vancomycin Trough Salicylates Acetaminophen Crossmatch 11/12/20 11/12/20 11/12/20 05:44 08:33 08:33 WBC 13.4 H RBC 2.35 L Hgb 7.5 L Hct 23.7 L MCV 101 H MCH MCHC RDW 19.7 H Plt Count Lymph % (Auto) Mitchell % (Auto) Mitchell # (Auto) Seg Neutrophils % Seg Neuts % (Manual) Lymphocytes % (Manual) Nucleated RBC % Seg Neutrophils # Seg Neutrophils # Man Lymphocytes # (Manual) Monocytes # (Manual) PT INR ABG pH POC ABG pCO2 POC ABG pO2 ABG pO2 ABG HCO3 ABG O2 Saturation ABG Base Excess ABG Hemoglobin ABG Oxyhemoglobin ABG Sodium ABG Potassium ABG Chloride ABG Glucose Oxyhemoglobin Carboxyhemoglobin Sodium 154 H Potassium 2.9 L* Chloride 121.4 H Carbon Dioxide BUN 26 H Creatinine 0.4 L Glucose 153 H POC Glucose 114 H Lactic Acid Calcium 7.3 L Phosphorus Magnesium Total Creatine Kinase Troponin T Total Protein Albumin Triglycerides LDL Cholesterol Direct HDL Cholesterol Arterial Blood Glucose Arterial Blood Ionized Calcium Urine pH Urine WBC (Auto) Vancomycin Trough Salicylates Acetaminophen Crossmatch 11/12/20 11/12/20 11/13/20 11:38 17:17 05:28 WBC RBC Hgb Hct MCV MCH MCHC RDW Plt Count Lymph % (Auto) Mitchell % (Auto) Mitchell # (Auto) Seg Neutrophils % Seg Neuts % (Manual) Lymphocytes % (Manual) Nucleated RBC % Seg Neutrophils # Seg Neutrophils # Man Lymphocytes # (Manual) Monocytes # (Manual) PT INR ABG pH POC ABG pCO2 51.4 H POC ABG pO2 41.7 L ABG pO2 ABG HCO3 ABG O2 Saturation ABG Base Excess ABG Hemoglobin 9.1 L ABG Oxyhemoglobin 72.2 L ABG Sodium 151.1 H ABG Potassium 3.2 L ABG Chloride 122.0 H ABG Glucose 191 H Oxyhemoglobin Carboxyhemoglobin Sodium Potassium Chloride Carbon Dioxide BUN Creatinine Glucose POC Glucose 125 H 127 H Lactic Acid Calcium Phosphorus Magnesium Total Creatine Kinase Troponin T Total Protein Albumin Triglycerides LDL Cholesterol Direct HDL Cholesterol Arterial Blood Glucose 191 H Arterial Blood Ionized Calcium Urine pH Urine WBC (Auto) Vancomycin Trough Salicylates Acetaminophen Crossmatch 11/13/20 11/13/20 11/13/20 10:46 23:15 23:15 WBC 12.2 H RBC 2.41 L Hgb 7.7 L Hct 24.5 L MCV 102 H MCH MCHC RDW 23.0 H Plt Count Lymph % (Auto) Mitchell % (Auto) Mitchell # (Auto) Seg Neutrophils % Seg Neuts % (Manual) Lymphocytes % (Manual) Nucleated RBC % Seg Neutrophils # Seg Neutrophils # Man Lymphocytes # (Manual) Monocytes # (Manual) PT INR ABG pH POC ABG pCO2 POC ABG pO2 ABG pO2 ABG HCO3 ABG O2 Saturation ABG Base Excess ABG Hemoglobin ABG Oxyhemoglobin ABG Sodium ABG Potassium ABG Chloride ABG Glucose Oxyhemoglobin Carboxyhemoglobin Sodium Potassium Chloride Carbon Dioxide BUN Creatinine Glucose POC Glucose 153 H Lactic Acid Calcium Phosphorus Magnesium Total Creatine Kinase Troponin T 0.123 H* Total Protein Albumin Triglycerides LDL Cholesterol Direct HDL Cholesterol Arterial Blood Glucose Arterial Blood Ionized Calcium Urine pH Urine WBC (Auto) Vancomycin Trough Salicylates Acetaminophen Crossmatch 11/13/20 11/13/20 11/14/20 23:15 Unknown 05:26 WBC RBC Hgb Hct MCV MCH MCHC RDW Plt Count Lymph % (Auto) Mitchell % (Auto) Mitchell # (Auto) Seg Neutrophils % Seg Neuts % (Manual) Lymphocytes % (Manual) Nucleated RBC % Seg Neutrophils # Seg Neutrophils # Man Lymphocytes # (Manual) Monocytes # (Manual) PT INR ABG pH 7.295 L POC ABG pCO2 56.0 H POC ABG pO2 49.1 L ABG pO2 ABG HCO3 ABG O2 Saturation ABG Base Excess ABG Hemoglobin 8.3 L ABG Oxyhemoglobin 77.1 L ABG Sodium 150.5 H ABG Potassium 3.3 L ABG Chloride 121.0 H ABG Glucose 187 H Oxyhemoglobin Carboxyhemoglobin Sodium 152 H Potassium 3.3 L Chloride 117.8 H Carbon Dioxide BUN 25 H Creatinine 0.4 L Glucose 123 H POC Glucose 46 L Lactic Acid Calcium 7.5 L Phosphorus Magnesium Total Creatine Kinase Troponin T Total Protein Albumin Triglycerides LDL Cholesterol Direct HDL Cholesterol Arterial Blood Glucose 187 H Arterial Blood Ionized Calcium Urine pH Urine WBC (Auto) Vancomycin Trough Salicylates Acetaminophen Crossmatch 11/14/20 11/14/20 11/14/20 06:26 22:26 22:26 WBC RBC 2.75 L Hgb 9.0 L Hct 27.8 L MCV 101 H MCH 33 H MCHC RDW 22.8 H Plt Count Lymph % (Auto) Mitchell % (Auto) Mitchell # (Auto) Seg Neutrophils % Seg Neuts % (Manual) Lymphocytes % (Manual) Nucleated RBC % Seg Neutrophils # Seg Neutrophils # Man Lymphocytes # (Manual) Monocytes # (Manual) PT INR ABG pH POC ABG pCO2 POC ABG pO2 ABG pO2 ABG HCO3 ABG O2 Saturation ABG Base Excess ABG Hemoglobin ABG Oxyhemoglobin ABG Sodium ABG Potassium ABG Chloride ABG Glucose Oxyhemoglobin Carboxyhemoglobin Sodium 147 H Potassium 3.3 L Chloride 114.3 H Carbon Dioxide BUN 23 H Creatinine 0.3 L Glucose 209 H POC Glucose 135 H Lactic Acid Calcium 7.4 L Phosphorus Magnesium Total Creatine Kinase Troponin T Total Protein Albumin Triglycerides LDL Cholesterol Direct HDL Cholesterol Arterial Blood Glucose Arterial Blood Ionized Calcium Urine pH Urine WBC (Auto) Vancomycin Trough Salicylates Acetaminophen Crossmatch 11/14/20 11/15/20 11/15/20 23:22 04:28 05:57 WBC RBC Hgb Hct MCV MCH MCHC RDW Plt Count Lymph % (Auto) Mitchell % (Auto) Mitchell # (Auto) Seg Neutrophils % Seg Neuts % (Manual) Lymphocytes % (Manual) Nucleated RBC % Seg Neutrophils # Seg Neutrophils # Man Lymphocytes # (Manual) Monocytes # (Manual) PT INR ABG pH POC ABG pCO2 POC ABG pO2 ABG pO2 ABG HCO3 ABG O2 Saturation ABG Base Excess ABG Hemoglobin ABG Oxyhemoglobin ABG Sodium ABG Potassium ABG Chloride ABG Glucose Oxyhemoglobin Carboxyhemoglobin Sodium 152 H Potassium Chloride 118.1 H Carbon Dioxide BUN 22 H Creatinine 0.3 L Glucose 190 H POC Glucose 136 H 151 H Lactic Acid Calcium 7.5 L Phosphorus Magnesium Total Creatine Kinase Troponin T Total Protein Albumin Triglycerides LDL Cholesterol Direct HDL Cholesterol Arterial Blood Glucose Arterial Blood Ionized Calcium Urine pH Urine WBC (Auto) Vancomycin Trough Salicylates Acetaminophen Crossmatch 11/15/20 11/15/20 11/15/20 11:40 16:56 21:53 WBC RBC Hgb Hct MCV MCH MCHC RDW Plt Count Lymph % (Auto) Mitchell % (Auto) Mitchell # (Auto) Seg Neutrophils % Seg Neuts % (Manual) Lymphocytes % (Manual) Nucleated RBC % Seg Neutrophils # Seg Neutrophils # Man Lymphocytes # (Manual) Monocytes # (Manual) PT INR ABG pH 7.457 H POC ABG pCO2 POC ABG pO2 ABG pO2 48.3 L ABG HCO3 26.1 H ABG O2 Saturation 82.9 L ABG Base Excess ABG Hemoglobin 9.7 L ABG Oxyhemoglobin ABG Sodium ABG Potassium ABG Chloride ABG Glucose Oxyhemoglobin 81.0 L Carboxyhemoglobin Sodium Potassium Chloride Carbon Dioxide BUN Creatinine Glucose POC Glucose 129 H 115 H Lactic Acid Calcium Phosphorus Magnesium Total Creatine Kinase Troponin T Total Protein Albumin Triglycerides LDL Cholesterol Direct HDL Cholesterol Arterial Blood Glucose Arterial Blood Ionized Calcium Urine pH Urine WBC (Auto) Vancomycin Trough Salicylates Acetaminophen Crossmatch 11/15/20 11/16/20 11/16/20 23:12 00:07 00:09 WBC RBC Hgb Hct MCV MCH MCHC RDW Plt Count Lymph % (Auto) Mitchell % (Auto) Mitchell # (Auto) Seg Neutrophils % Seg Neuts % (Manual) Lymphocytes % (Manual) Nucleated RBC % Seg Neutrophils # Seg Neutrophils # Man Lymphocytes # (Manual) Monocytes # (Manual) PT INR ABG pH POC ABG pCO2 POC ABG pO2 ABG pO2 95.1 H ABG HCO3 26.6 H ABG O2 Saturation ABG Base Excess ABG Hemoglobin 7.5 L ABG Oxyhemoglobin ABG Sodium ABG Potassium ABG Chloride ABG Glucose Oxyhemoglobin Carboxyhemoglobin Sodium Potassium Chloride Carbon Dioxide BUN Creatinine Glucose POC Glucose 13 L 153 H Lactic Acid Calcium Phosphorus Magnesium Total Creatine Kinase Troponin T Total Protein Albumin Triglycerides LDL Cholesterol Direct HDL Cholesterol Arterial Blood Glucose Arterial Blood Ionized Calcium Urine pH Urine WBC (Auto) Vancomycin Trough Salicylates Acetaminophen Crossmatch 11/16/20 11/16/20 11/16/20 03:43 04:00 04:00 WBC RBC 2.33 L Hgb 7.7 L Hct 24.5 L MCV 105 H MCH 33 H MCHC 31 L RDW 22.9 H Plt Count Lymph % (Auto) Mitchell % (Auto) Mitchell # (Auto) Seg Neutrophils % Seg Neuts % (Manual) Lymphocytes % (Manual) Nucleated RBC % Seg Neutrophils # Seg Neutrophils # Man Lymphocytes # (Manual) Monocytes # (Manual) PT INR ABG pH 7.348 L POC ABG pCO2 POC ABG pO2 ABG pO2 91.6 H ABG HCO3 26.3 H ABG O2 Saturation ABG Base Excess ABG Hemoglobin 7.3 L ABG Oxyhemoglobin ABG Sodium ABG Potassium ABG Chloride ABG Glucose Oxyhemoglobin Carboxyhemoglobin Sodium 148 H Potassium 3.5 L Chloride 115.9 H Carbon Dioxide BUN Creatinine 0.4 L Glucose 195 H POC Glucose Lactic Acid Calcium 7.6 L Phosphorus Magnesium Total Creatine Kinase Troponin T Total Protein Albumin Triglycerides LDL Cholesterol Direct HDL Cholesterol Arterial Blood Glucose Arterial Blood Ionized Calcium Urine pH Urine WBC (Auto) Vancomycin Trough Salicylates Acetaminophen Crossmatch 11/16/20 11/16/20 11/16/20 05:16 07:40 12:10 WBC RBC Hgb Hct MCV MCH MCHC RDW Plt Count Lymph % (Auto) Mitchell % (Auto) Mitchell # (Auto) Seg Neutrophils % Seg Neuts % (Manual) Lymphocytes % (Manual) Nucleated RBC % Seg Neutrophils # Seg Neutrophils # Man Lymphocytes # (Manual) Monocytes # (Manual) PT INR ABG pH POC ABG pCO2 POC ABG pO2 ABG pO2 ABG HCO3 ABG O2 Saturation ABG Base Excess ABG Hemoglobin ABG Oxyhemoglobin ABG Sodium ABG Potassium ABG Chloride ABG Glucose Oxyhemoglobin Carboxyhemoglobin Sodium Potassium Chloride Carbon Dioxide BUN Creatinine Glucose POC Glucose 61 L 122 H 140 H Lactic Acid Calcium Phosphorus Magnesium Total Creatine Kinase Troponin T Total Protein Albumin Triglycerides LDL Cholesterol Direct HDL Cholesterol Arterial Blood Glucose Arterial Blood Ionized Calcium Urine pH Urine WBC (Auto) Vancomycin Trough Salicylates Acetaminophen Crossmatch 11/16/20 11/16/20 11/17/20 17:14 23:40 04:30 WBC RBC Hgb Hct MCV MCH MCHC RDW Plt Count Lymph % (Auto) Mitchell % (Auto) Mitchell # (Auto) Seg Neutrophils % Seg Neuts % (Manual) Lymphocytes % (Manual) Nucleated RBC % Seg Neutrophils # Seg Neutrophils # Man Lymphocytes # (Manual) Monocytes # (Manual) PT INR ABG pH 7.470 H POC ABG pCO2 POC ABG pO2 75.4 L ABG pO2 ABG HCO3 ABG O2 Saturation ABG Base Excess ABG Hemoglobin 7 L ABG Oxyhemoglobin ABG Sodium ABG Potassium ABG Chloride 116.0 H ABG Glucose 161 H Oxyhemoglobin Carboxyhemoglobin Sodium Potassium Chloride Carbon Dioxide BUN Creatinine Glucose POC Glucose 139 H 151 H Lactic Acid Calcium Phosphorus Magnesium Total Creatine Kinase Troponin T Total Protein Albumin Triglycerides LDL Cholesterol Direct HDL Cholesterol Arterial Blood Glucose 161 H Arterial Blood Ionized Calcium Urine pH Urine WBC (Auto) Vancomycin Trough Salicylates Acetaminophen Crossmatch 11/17/20 11/17/20 11/17/20 09:50 09:50 11:10 WBC RBC 2.02 L Hgb 6.6 L Hct 20.2 L MCV 100 H MCH 33 H MCHC RDW 22.4 H Plt Count Lymph % (Auto) Mitchell % (Auto) Mitchell # (Auto) Seg Neutrophils % Seg Neuts % (Manual) Lymphocytes % (Manual) Nucleated RBC % Seg Neutrophils # Seg Neutrophils # Man Lymphocytes # (Manual) Monocytes # (Manual) PT INR ABG pH POC ABG pCO2 POC ABG pO2 ABG pO2 ABG HCO3 ABG O2 Saturation ABG Base Excess ABG Hemoglobin ABG Oxyhemoglobin ABG Sodium ABG Potassium ABG Chloride ABG Glucose Oxyhemoglobin Carboxyhemoglobin Sodium Potassium Chloride 111.8 H Carbon Dioxide BUN 23 H Creatinine 0.4 L Glucose 142 H POC Glucose Lactic Acid Calcium 7.3 L Phosphorus Magnesium Total Creatine Kinase Troponin T Total Protein Albumin Triglycerides LDL Cholesterol Direct HDL Cholesterol Arterial Blood Glucose Arterial Blood Ionized Calcium Urine pH Urine WBC (Auto) Vancomycin Trough Salicylates Acetaminophen Crossmatch See Detail 11/17/20 11/17/20 11/17/20 11:52 11:57 23:22 WBC RBC Hgb Hct MCV MCH MCHC RDW Plt Count Lymph % (Auto) Mitchell % (Auto) Mitchell # (Auto) Seg Neutrophils % Seg Neuts % (Manual) Lymphocytes % (Manual) Nucleated RBC % Seg Neutrophils # Seg Neutrophils # Man Lymphocytes # (Manual) Monocytes # (Manual) PT INR ABG pH POC ABG pCO2 POC ABG pO2 ABG pO2 ABG HCO3 ABG O2 Saturation ABG Base Excess ABG Hemoglobin ABG Oxyhemoglobin ABG Sodium ABG Potassium ABG Chloride ABG Glucose Oxyhemoglobin Carboxyhemoglobin Sodium Potassium Chloride Carbon Dioxide BUN Creatinine Glucose POC Glucose 42 L 114 H 63 L Lactic Acid Calcium Phosphorus Magnesium Total Creatine Kinase Troponin T Total Protein Albumin Triglycerides LDL Cholesterol Direct HDL Cholesterol Arterial Blood Glucose Arterial Blood Ionized Calcium Urine pH Urine WBC (Auto) Vancomycin Trough Salicylates Acetaminophen Crossmatch 11/17/20 11/18/20 11/18/20 23:27 04:06 04:45 WBC RBC 2.36 L Hgb 7.4 L Hct 23.4 L MCV 99 H MCH MCHC RDW 21.6 H Plt Count Lymph % (Auto) Mitchell % (Auto) Mitchell # (Auto) Seg Neutrophils % Seg Neuts % (Manual) Lymphocytes % (Manual) Nucleated RBC % Seg Neutrophils # Seg Neutrophils # Man Lymphocytes # (Manual) Monocytes # (Manual) PT INR ABG pH POC ABG pCO2 POC ABG pO2 67.7 L ABG pO2 ABG HCO3 ABG O2 Saturation ABG Base Excess ABG Hemoglobin 8.3 L ABG Oxyhemoglobin ABG Sodium ABG Potassium ABG Chloride 112.0 H ABG Glucose 143 H Oxyhemoglobin Carboxyhemoglobin Sodium Potassium Chloride Carbon Dioxide BUN Creatinine Glucose POC Glucose 124 H Lactic Acid Calcium Phosphorus Magnesium Total Creatine Kinase Troponin T Total Protein Albumin Triglycerides LDL Cholesterol Direct HDL Cholesterol Arterial Blood Glucose 143 H Arterial Blood Ionized Calcium 4.5 L Urine pH Urine WBC (Auto) Vancomycin Trough Salicylates Acetaminophen Crossmatch 11/18/20 11/18/20 11/18/20 04:45 05:56 23:46 WBC RBC Hgb Hct MCV MCH MCHC RDW Plt Count Lymph % (Auto) Mitchell % (Auto) Mitchell # (Auto) Seg Neutrophils % Seg Neuts % (Manual) Lymphocytes % (Manual) Nucleated RBC % Seg Neutrophils # Seg Neutrophils # Man Lymphocytes # (Manual) Monocytes # (Manual) PT INR ABG pH POC ABG pCO2 POC ABG pO2 ABG pO2 ABG HCO3 ABG O2 Saturation ABG Base Excess ABG Hemoglobin ABG Oxyhemoglobin ABG Sodium ABG Potassium ABG Chloride ABG Glucose Oxyhemoglobin Carboxyhemoglobin Sodium Potassium Chloride 107.9 H Carbon Dioxide BUN 23 H Creatinine 0.4 L Glucose 139 H POC Glucose 133 H 66 L Lactic Acid Calcium 7.6 L Phosphorus Magnesium Total Creatine Kinase Troponin T Total Protein Albumin Triglycerides LDL Cholesterol Direct HDL Cholesterol Arterial Blood Glucose Arterial Blood Ionized Calcium Urine pH Urine WBC (Auto) Vancomycin Trough Salicylates Acetaminophen Crossmatch 11/18/20 11/19/20 11/19/20 23:52 05:48 06:36 WBC RBC Hgb Hct MCV MCH MCHC RDW Plt Count Lymph % (Auto) Mitchell % (Auto) Mitchell # (Auto) Seg Neutrophils % Seg Neuts % (Manual) Lymphocytes % (Manual) Nucleated RBC % Seg Neutrophils # Seg Neutrophils # Man Lymphocytes # (Manual) Monocytes # (Manual) PT INR ABG pH POC ABG pCO2 POC ABG pO2 ABG pO2 ABG HCO3 ABG O2 Saturation ABG Base Excess ABG Hemoglobin ABG Oxyhemoglobin ABG Sodium ABG Potassium ABG Chloride ABG Glucose Oxyhemoglobin Carboxyhemoglobin Sodium Potassium Chloride Carbon Dioxide BUN 21 H Creatinine 0.4 L Glucose 119 H POC Glucose 118 H 108 H Lactic Acid Calcium 7.8 L Phosphorus Magnesium Total Creatine Kinase Troponin T Total Protein Albumin Triglycerides LDL Cholesterol Direct HDL Cholesterol Arterial Blood Glucose Arterial Blood Ionized Calcium Urine pH Urine WBC (Auto) Vancomycin Trough Salicylates Acetaminophen Crossmatch 11/19/20 11/19/20 11/19/20 06:36 06:36 18:15 WBC RBC 2.79 L Hgb 9.0 L Hct 27.8 L MCV 100 H MCH MCHC RDW 20.7 H Plt Count Lymph % (Auto) Mitchell % (Auto) Mitchell # (Auto) Seg Neutrophils % Seg Neuts % (Manual) Lymphocytes % (Manual) Nucleated RBC % Seg Neutrophils # Seg Neutrophils # Man Lymphocytes # (Manual) Monocytes # (Manual) PT INR 1.15 H ABG pH POC ABG pCO2 POC ABG pO2 ABG pO2 ABG HCO3 ABG O2 Saturation ABG Base Excess ABG Hemoglobin ABG Oxyhemoglobin ABG Sodium ABG Potassium ABG Chloride ABG Glucose Oxyhemoglobin Carboxyhemoglobin Sodium Potassium Chloride Carbon Dioxide BUN Creatinine Glucose POC Glucose 115 H Lactic Acid Calcium Phosphorus Magnesium Total Creatine Kinase Troponin T Total Protein Albumin Triglycerides LDL Cholesterol Direct HDL Cholesterol Arterial Blood Glucose Arterial Blood Ionized Calcium Urine pH Urine WBC (Auto) Vancomycin Trough Salicylates Acetaminophen Crossmatch 11/19/20 11/19/20 11/20/20 23:27 Unknown 04:56 WBC RBC Hgb Hct MCV MCH MCHC RDW Plt Count Lymph % (Auto) Mitchell % (Auto) Mitchell # (Auto) Seg Neutrophils % Seg Neuts % (Manual) Lymphocytes % (Manual) Nucleated RBC % Seg Neutrophils # Seg Neutrophils # Man Lymphocytes # (Manual) Monocytes # (Manual) PT INR ABG pH 7.457 H POC ABG pCO2 POC ABG pO2 57.4 L ABG pO2 72.4 L ABG HCO3 26.9 H ABG O2 Saturation ABG Base Excess ABG Hemoglobin 8.5 L 9.6 L ABG Oxyhemoglobin 90.1 L ABG Sodium ABG Potassium ABG Chloride 109.0 H ABG Glucose 142 H Oxyhemoglobin 94.1 L Carboxyhemoglobin Sodium Potassium Chloride Carbon Dioxide BUN Creatinine Glucose POC Glucose 129 H Lactic Acid Calcium Phosphorus Magnesium Total Creatine Kinase Troponin T Total Protein Albumin Triglycerides LDL Cholesterol Direct HDL Cholesterol Arterial Blood Glucose 142 H Arterial Blood Ionized Calcium Urine pH Urine WBC (Auto) Vancomycin Trough Salicylates Acetaminophen Crossmatch 11/20/20 11/20/20 11/20/20 05:07 05:45 05:45 WBC 11.7 H RBC 2.74 L Hgb 8.9 L Hct 26.3 L MCV 96 H MCH 33 H MCHC RDW 18.6 H Plt Count Lymph % (Auto) Mitchell % (Auto) Mitchell # (Auto) Seg Neutrophils % Seg Neuts % (Manual) Lymphocytes % (Manual) Nucleated RBC % Seg Neutrophils # Seg Neutrophils # Man Lymphocytes # (Manual) Monocytes # (Manual) PT INR ABG pH POC ABG pCO2 POC ABG pO2 ABG pO2 ABG HCO3 ABG O2 Saturation ABG Base Excess ABG Hemoglobin ABG Oxyhemoglobin ABG Sodium ABG Potassium ABG Chloride ABG Glucose Oxyhemoglobin Carboxyhemoglobin Sodium Potassium Chloride Carbon Dioxide 31 H BUN Creatinine 0.4 L Glucose 127 H POC Glucose 129 H Lactic Acid Calcium 8.0 L Phosphorus Magnesium Total Creatine Kinase Troponin T Total Protein Albumin Triglycerides LDL Cholesterol Direct HDL Cholesterol Arterial Blood Glucose Arterial Blood Ionized Calcium Urine pH Urine WBC (Auto) Vancomycin Trough Salicylates Acetaminophen Crossmatch 11/20/20 11/20/20 11/21/20 12:02 17:52 00:02 WBC RBC Hgb Hct MCV MCH MCHC RDW Plt Count Lymph % (Auto) Mitchell % (Auto) Mitchell # (Auto) Seg Neutrophils % Seg Neuts % (Manual) Lymphocytes % (Manual) Nucleated RBC % Seg Neutrophils # Seg Neutrophils # Man Lymphocytes # (Manual) Monocytes # (Manual) PT INR ABG pH POC ABG pCO2 POC ABG pO2 ABG pO2 ABG HCO3 ABG O2 Saturation ABG Base Excess ABG Hemoglobin ABG Oxyhemoglobin ABG Sodium ABG Potassium ABG Chloride ABG Glucose Oxyhemoglobin Carboxyhemoglobin Sodium Potassium Chloride Carbon Dioxide BUN Creatinine Glucose POC Glucose 134 H 115 H 116 H Lactic Acid Calcium Phosphorus Magnesium Total Creatine Kinase Troponin T Total Protein Albumin Triglycerides LDL Cholesterol Direct HDL Cholesterol Arterial Blood Glucose Arterial Blood Ionized Calcium Urine pH Urine WBC (Auto) Vancomycin Trough Salicylates Acetaminophen Crossmatch 11/21/20 11/21/20 11/21/20 03:23 04:00 05:14 WBC RBC Hgb Hct MCV MCH MCHC RDW Plt Count Lymph % (Auto) Mitchell % (Auto) Mitchell # (Auto) Seg Neutrophils % Seg Neuts % (Manual) Lymphocytes % (Manual) Nucleated RBC % Seg Neutrophils # Seg Neutrophils # Man Lymphocytes # (Manual) Monocytes # (Manual) PT INR ABG pH 7.479 H POC ABG pCO2 POC ABG pO2 73.7 L ABG pO2 ABG HCO3 ABG O2 Saturation ABG Base Excess ABG Hemoglobin 9.4 L ABG Oxyhemoglobin ABG Sodium ABG Potassium ABG Chloride 108.0 H ABG Glucose 135 H Oxyhemoglobin Carboxyhemoglobin Sodium Potassium Chloride Carbon Dioxide 34 H BUN Creatinine 0.4 L Glucose 125 H POC Glucose 116 H Lactic Acid Calcium 7.9 L Phosphorus Magnesium Total Creatine Kinase Troponin T Total Protein Albumin Triglycerides LDL Cholesterol Direct HDL Cholesterol Arterial Blood Glucose 135 H Arterial Blood Ionized Calcium 4.5 L Urine pH Urine WBC (Auto) Vancomycin Trough Salicylates Acetaminophen Crossmatch 11/22/20 11/22/20 11/22/20 04:00 04:00 05:34 WBC 12.2 H RBC 2.74 L Hgb 8.7 L Hct 27.4 L MCV 100 H MCH MCHC RDW 19.2 H Plt Count Lymph % (Auto) Mitchell % (Auto) Mitchell # (Auto) Seg Neutrophils % Seg Neuts % (Manual) Lymphocytes % (Manual) Nucleated RBC % Seg Neutrophils # Seg Neutrophils # Man Lymphocytes # (Manual) Monocytes # (Manual) PT INR ABG pH POC ABG pCO2 POC ABG pO2 ABG pO2 ABG HCO3 ABG O2 Saturation ABG Base Excess ABG Hemoglobin ABG Oxyhemoglobin ABG Sodium ABG Potassium ABG Chloride ABG Glucose Oxyhemoglobin Carboxyhemoglobin Sodium Potassium Chloride Carbon Dioxide BUN Creatinine 0.4 L Glucose POC Glucose 58 L Lactic Acid Calcium 7.7 L Phosphorus Magnesium Total Creatine Kinase Troponin T Total Protein Albumin Triglycerides LDL Cholesterol Direct HDL Cholesterol Arterial Blood Glucose Arterial Blood Ionized Calcium Urine pH Urine WBC (Auto) Vancomycin Trough Salicylates Acetaminophen Crossmatch 11/22/20 11/23/20 11/23/20 11:48 00:15 04:25 WBC RBC Hgb Hct MCV MCH MCHC RDW Plt Count Lymph % (Auto) Mitchell % (Auto) Mitchell # (Auto) Seg Neutrophils % Seg Neuts % (Manual) Lymphocytes % (Manual) Nucleated RBC % Seg Neutrophils # Seg Neutrophils # Man Lymphocytes # (Manual) Monocytes # (Manual) PT INR ABG pH 7.489 H POC ABG pCO2 POC ABG pO2 74.7 L ABG pO2 ABG HCO3 ABG O2 Saturation ABG Base Excess ABG Hemoglobin 9.6 L ABG Oxyhemoglobin ABG Sodium 135.6 L ABG Potassium ABG Chloride ABG Glucose 119 H Oxyhemoglobin Carboxyhemoglobin Sodium Potassium Chloride Carbon Dioxide BUN Creatinine Glucose POC Glucose 60 L 106 H Lactic Acid Calcium Phosphorus Magnesium Total Creatine Kinase Troponin T Total Protein Albumin Triglycerides LDL Cholesterol Direct HDL Cholesterol Arterial Blood Glucose 119 H Arterial Blood Ionized Calcium 4.4 L Urine pH Urine WBC (Auto) Vancomycin Trough Salicylates Acetaminophen Crossmatch 11/23/20 11/23/20 11/23/20 05:27 10:23 10:23 WBC 11.3 H RBC 2.58 L Hgb 8.4 L Hct 24.7 L MCV 96 H MCH MCHC RDW 18.2 H Plt Count Lymph % (Auto) Mitchell % (Auto) Mitchell # (Auto) Seg Neutrophils % Seg Neuts % (Manual) 94.0 H Lymphocytes % (Manual) 5.0 L Nucleated RBC % Seg Neutrophils # Seg Neutrophils # Man 10.6 H Lymphocytes # (Manual) 0.6 L Monocytes # (Manual) PT INR ABG pH POC ABG pCO2 POC ABG pO2 ABG pO2 ABG HCO3 ABG O2 Saturation ABG Base Excess ABG Hemoglobin ABG Oxyhemoglobin ABG Sodium ABG Potassium ABG Chloride ABG Glucose Oxyhemoglobin Carboxyhemoglobin Sodium Potassium Chloride Carbon Dioxide BUN Creatinine 0.4 L Glucose 101 H POC Glucose 121 H Lactic Acid Calcium 7.2 L Phosphorus Magnesium Total Creatine Kinase Troponin T Total Protein Albumin Triglycerides LDL Cholesterol Direct HDL Cholesterol Arterial Blood Glucose Arterial Blood Ionized Calcium Urine pH Urine WBC (Auto) Vancomycin Trough Salicylates Acetaminophen Crossmatch 11/23/20 11/23/20 11/24/20 11:53 23:19 05:31 WBC RBC Hgb Hct MCV MCH MCHC RDW Plt Count Lymph % (Auto) Mitchell % (Auto) Mitchell # (Auto) Seg Neutrophils % Seg Neuts % (Manual) Lymphocytes % (Manual) Nucleated RBC % Seg Neutrophils # Seg Neutrophils # Man Lymphocytes # (Manual) Monocytes # (Manual) PT INR ABG pH POC ABG pCO2 POC ABG pO2 ABG pO2 ABG HCO3 ABG O2 Saturation ABG Base Excess ABG Hemoglobin ABG Oxyhemoglobin ABG Sodium ABG Potassium ABG Chloride ABG Glucose Oxyhemoglobin Carboxyhemoglobin Sodium Potassium Chloride Carbon Dioxide BUN Creatinine Glucose POC Glucose 112 H 120 H 132 H Lactic Acid Calcium Phosphorus Magnesium Total Creatine Kinase Troponin T Total Protein Albumin Triglycerides LDL Cholesterol Direct HDL Cholesterol Arterial Blood Glucose Arterial Blood Ionized Calcium Urine pH Urine WBC (Auto) Vancomycin Trough Salicylates Acetaminophen Crossmatch 11/24/20 11/24/20 11/24/20 11:27 16:48 23:11 WBC RBC Hgb Hct MCV MCH MCHC RDW Plt Count Lymph % (Auto) Mitchell % (Auto) Mitchell # (Auto) Seg Neutrophils % Seg Neuts % (Manual) Lymphocytes % (Manual) Nucleated RBC % Seg Neutrophils # Seg Neutrophils # Man Lymphocytes # (Manual) Monocytes # (Manual) PT INR ABG pH POC ABG pCO2 POC ABG pO2 ABG pO2 ABG HCO3 ABG O2 Saturation ABG Base Excess ABG Hemoglobin ABG Oxyhemoglobin ABG Sodium ABG Potassium ABG Chloride ABG Glucose Oxyhemoglobin Carboxyhemoglobin Sodium Potassium Chloride Carbon Dioxide BUN Creatinine Glucose POC Glucose 137 H 128 H 114 H Lactic Acid Calcium Phosphorus Magnesium Total Creatine Kinase Troponin T Total Protein Albumin Triglycerides LDL Cholesterol Direct HDL Cholesterol Arterial Blood Glucose Arterial Blood Ionized Calcium Urine pH Urine WBC (Auto) Vancomycin Trough Salicylates Acetaminophen Crossmatch 11/25/20 11/25/20 11/25/20 05:06 11:20 11:31 WBC 19.0 H RBC 2.28 L Hgb 7.3 L Hct 22.5 L MCV 99 H MCH MCHC RDW 18.3 H Plt Count Lymph % (Auto) Mitchell % (Auto) Mitchell # (Auto) Seg Neutrophils % Seg Neuts % (Manual) Lymphocytes % (Manual) Nucleated RBC % Seg Neutrophils # Seg Neutrophils # Man Lymphocytes # (Manual) Monocytes # (Manual) PT INR ABG pH POC ABG pCO2 POC ABG pO2 ABG pO2 ABG HCO3 ABG O2 Saturation ABG Base Excess ABG Hemoglobin ABG Oxyhemoglobin ABG Sodium ABG Potassium ABG Chloride ABG Glucose Oxyhemoglobin Carboxyhemoglobin Sodium Potassium Chloride Carbon Dioxide BUN Creatinine Glucose POC Glucose 125 H 106 H Lactic Acid Calcium Phosphorus Magnesium Total Creatine Kinase Troponin T Total Protein Albumin Triglycerides LDL Cholesterol Direct HDL Cholesterol Arterial Blood Glucose Arterial Blood Ionized Calcium Urine pH Urine WBC (Auto) Vancomycin Trough Salicylates Acetaminophen Crossmatch 11/25/20 11/26/20 11/26/20 16:25 09:25 12:01 WBC 20.8 H RBC 2.82 L Hgb 8.7 L Hct 27.3 L MCV 97 H MCH MCHC RDW 17.9 H Plt Count Lymph % (Auto) Mitchell % (Auto) Mitchell # (Auto) Seg Neutrophils % Seg Neuts % (Manual) Lymphocytes % (Manual) Nucleated RBC % Seg Neutrophils # Seg Neutrophils # Man Lymphocytes # (Manual) Monocytes # (Manual) PT INR ABG pH 7.480 H POC ABG pCO2 POC ABG pO2 78.1 L ABG pO2 ABG HCO3 ABG O2 Saturation ABG Base Excess ABG Hemoglobin 8.5 L ABG Oxyhemoglobin ABG Sodium ABG Potassium ABG Chloride ABG Glucose 114 H Oxyhemoglobin Carboxyhemoglobin Sodium Potassium Chloride Carbon Dioxide BUN Creatinine Glucose POC Glucose 130 H Lactic Acid Calcium Phosphorus Magnesium Total Creatine Kinase Troponin T Total Protein Albumin Triglycerides LDL Cholesterol Direct HDL Cholesterol Arterial Blood Glucose 114 H Arterial Blood Ionized Calcium 4.5 L Urine pH Urine WBC (Auto) Vancomycin Trough Salicylates Acetaminophen Crossmatch 11/26/20 11/26/20 11/27/20 16:55 23:43 05:55 WBC 18.1 H RBC 2.48 L Hgb 7.8 L Hct 23.9 L MCV 97 H MCH MCHC RDW 17.7 H Plt Count Lymph % (Auto) Mitchell % (Auto) Mitchell # (Auto) Seg Neutrophils % Seg Neuts % (Manual) Lymphocytes % (Manual) Nucleated RBC % Seg Neutrophils # Seg Neutrophils # Man Lymphocytes # (Manual) Monocytes # (Manual) PT INR ABG pH POC ABG pCO2 POC ABG pO2 ABG pO2 ABG HCO3 ABG O2 Saturation ABG Base Excess ABG Hemoglobin ABG Oxyhemoglobin ABG Sodium ABG Potassium ABG Chloride ABG Glucose Oxyhemoglobin Carboxyhemoglobin Sodium Potassium Chloride Carbon Dioxide BUN Creatinine Glucose POC Glucose 123 H 110 H Lactic Acid Calcium Phosphorus Magnesium Total Creatine Kinase Troponin T Total Protein Albumin Triglycerides LDL Cholesterol Direct HDL Cholesterol Arterial Blood Glucose Arterial Blood Ionized Calcium Urine pH Urine WBC (Auto) Vancomycin Trough Salicylates Acetaminophen Crossmatch 11/27/20 11/27/20 11/27/20 05:55 11:41 18:08 WBC RBC Hgb Hct MCV MCH MCHC RDW Plt Count Lymph % (Auto) Mitchell % (Auto) Mitchell # (Auto) Seg Neutrophils % Seg Neuts % (Manual) Lymphocytes % (Manual) Nucleated RBC % Seg Neutrophils # Seg Neutrophils # Man Lymphocytes # (Manual) Monocytes # (Manual) PT INR ABG pH POC ABG pCO2 POC ABG pO2 ABG pO2 ABG HCO3 ABG O2 Saturation ABG Base Excess ABG Hemoglobin ABG Oxyhemoglobin ABG Sodium ABG Potassium ABG Chloride ABG Glucose Oxyhemoglobin Carboxyhemoglobin Sodium Potassium Chloride Carbon Dioxide 32 H BUN Creatinine 0.4 L Glucose 133 H POC Glucose 111 H 115 H Lactic Acid Calcium 7.5 L Phosphorus Magnesium Total Creatine Kinase Troponin T Total Protein 6.1 L Albumin 1.7 L Triglycerides LDL Cholesterol Direct HDL Cholesterol Arterial Blood Glucose Arterial Blood Ionized Calcium Urine pH Urine WBC (Auto) Vancomycin Trough Salicylates Acetaminophen Crossmatch 11/27/20 11/28/20 11/28/20 23:29 03:56 05:12 WBC RBC Hgb Hct MCV MCH MCHC RDW Plt Count Lymph % (Auto) Mitchell % (Auto) Mitchell # (Auto) Seg Neutrophils % Seg Neuts % (Manual) Lymphocytes % (Manual) Nucleated RBC % Seg Neutrophils # Seg Neutrophils # Man Lymphocytes # (Manual) Monocytes # (Manual) PT INR ABG pH 7.515 H POC ABG pCO2 POC ABG pO2 74.5 L ABG pO2 ABG HCO3 ABG O2 Saturation ABG Base Excess ABG Hemoglobin 8.4 L ABG Oxyhemoglobin ABG Sodium ABG Potassium ABG Chloride ABG Glucose 130 H Oxyhemoglobin Carboxyhemoglobin Sodium Potassium Chloride Carbon Dioxide BUN Creatinine Glucose POC Glucose 112 H 113 H Lactic Acid Calcium Phosphorus Magnesium Total Creatine Kinase Troponin T Total Protein Albumin Triglycerides LDL Cholesterol Direct HDL Cholesterol Arterial Blood Glucose 130 H Arterial Blood Ionized Calcium 4.5 L Urine pH Urine WBC (Auto) Vancomycin Trough Salicylates Acetaminophen Crossmatch 11/28/20 11/28/20 11/29/20 06:24 23:44 05:33 WBC RBC Hgb Hct MCV MCH MCHC RDW Plt Count Lymph % (Auto) Mitchell % (Auto) Mitchell # (Auto) Seg Neutrophils % Seg Neuts % (Manual) Lymphocytes % (Manual) Nucleated RBC % Seg Neutrophils # Seg Neutrophils # Man Lymphocytes # (Manual) Monocytes # (Manual) PT INR ABG pH POC ABG pCO2 POC ABG pO2 ABG pO2 ABG HCO3 ABG O2 Saturation ABG Base Excess ABG Hemoglobin ABG Oxyhemoglobin ABG Sodium ABG Potassium ABG Chloride ABG Glucose Oxyhemoglobin Carboxyhemoglobin Sodium 136 L Potassium Chloride Carbon Dioxide BUN Creatinine 0.4 L Glucose 124 H POC Glucose 112 H 107 H Lactic Acid Calcium 7.4 L Phosphorus Magnesium Total Creatine Kinase Troponin T Total Protein Albumin Triglycerides LDL Cholesterol Direct HDL Cholesterol Arterial Blood Glucose Arterial Blood Ionized Calcium Urine pH Urine WBC (Auto) Vancomycin Trough Salicylates Acetaminophen Crossmatch 11/29/20 11/29/20 11/29/20 11:59 23:16 23:16 WBC 15.5 H RBC 2.40 L Hgb 7.5 L Hct 23.1 L MCV 96 H MCH MCHC RDW 17.6 H Plt Count Lymph % (Auto) Mitchell % (Auto) Mitchell # (Auto) Seg Neutrophils % Seg Neuts % (Manual) Lymphocytes % (Manual) Nucleated RBC % Seg Neutrophils # Seg Neutrophils # Man Lymphocytes # (Manual) Monocytes # (Manual) PT INR ABG pH POC ABG pCO2 POC ABG pO2 ABG pO2 ABG HCO3 ABG O2 Saturation ABG Base Excess ABG Hemoglobin ABG Oxyhemoglobin ABG Sodium ABG Potassium ABG Chloride ABG Glucose Oxyhemoglobin Carboxyhemoglobin Sodium 135 L Potassium Chloride Carbon Dioxide 31 H BUN Creatinine 0.4 L Glucose 110 H POC Glucose 121 H Lactic Acid Calcium 7.6 L Phosphorus Magnesium Total Creatine Kinase Troponin T Total Protein Albumin Triglycerides LDL Cholesterol Direct HDL Cholesterol Arterial Blood Glucose Arterial Blood Ionized Calcium Urine pH Urine WBC (Auto) Vancomycin Trough Salicylates Acetaminophen Crossmatch 11/30/20 11/30/20 11/30/20 00:14 05:14 05:14 WBC 15.6 H RBC 2.46 L Hgb 7.7 L Hct 23.8 L MCV 97 H MCH MCHC RDW 17.2 H Plt Count Lymph % (Auto) 9.5 L Mitchell % (Auto) 10.3 H Mitchell # (Auto) 1.6 H Seg Neutrophils % 79.3 H Seg Neuts % (Manual) Lymphocytes % (Manual) Nucleated RBC % Seg Neutrophils # 12.3 H Seg Neutrophils # Man Lymphocytes # (Manual) Monocytes # (Manual) PT INR ABG pH POC ABG pCO2 POC ABG pO2 ABG pO2 ABG HCO3 ABG O2 Saturation ABG Base Excess ABG Hemoglobin ABG Oxyhemoglobin ABG Sodium ABG Potassium ABG Chloride ABG Glucose Oxyhemoglobin Carboxyhemoglobin Sodium Potassium Chloride Carbon Dioxide BUN 21 H Creatinine 0.4 L Glucose 126 H POC Glucose 109 H Lactic Acid Calcium 7.7 L Phosphorus Magnesium Total Creatine Kinase Troponin T Total Protein Albumin Triglycerides LDL Cholesterol Direct HDL Cholesterol Arterial Blood Glucose Arterial Blood Ionized Calcium Urine pH Urine WBC (Auto) Vancomycin Trough Salicylates Acetaminophen Crossmatch 11/30/20 11/30/20 12/02/20 06:10 12:11 05:05 WBC RBC Hgb Hct MCV MCH MCHC RDW Plt Count Lymph % (Auto) Mitchell % (Auto) Mitchell # (Auto) Seg Neutrophils % Seg Neuts % (Manual) Lymphocytes % (Manual) Nucleated RBC % Seg Neutrophils # Seg Neutrophils # Man Lymphocytes # (Manual) Monocytes # (Manual) PT INR ABG pH POC ABG pCO2 POC ABG pO2 ABG pO2 ABG HCO3 ABG O2 Saturation ABG Base Excess ABG Hemoglobin ABG Oxyhemoglobin ABG Sodium ABG Potassium ABG Chloride ABG Glucose Oxyhemoglobin Carboxyhemoglobin Sodium Potassium Chloride Carbon Dioxide BUN Creatinine Glucose POC Glucose 120 H 117 H 112 H Lactic Acid Calcium Phosphorus Magnesium Total Creatine Kinase Troponin T Total Protein Albumin Triglycerides LDL Cholesterol Direct HDL Cholesterol Arterial Blood Glucose Arterial Blood Ionized Calcium Urine pH Urine WBC (Auto) Vancomycin Trough Salicylates Acetaminophen Crossmatch 12/02/20 12/02/20 12/03/20 11:08 17:31 05:57 WBC 16.2 H RBC 2.43 L Hgb 7.4 L Hct 23.2 L MCV 96 H MCH MCHC RDW 17.8 H Plt Count Lymph % (Auto) Mitchell % (Auto) Mitchell # (Auto) Seg Neutrophils % Seg Neuts % (Manual) Lymphocytes % (Manual) Nucleated RBC % Seg Neutrophils # Seg Neutrophils # Man Lymphocytes # (Manual) Monocytes # (Manual) PT INR ABG pH POC ABG pCO2 POC ABG pO2 ABG pO2 ABG HCO3 ABG O2 Saturation ABG Base Excess ABG Hemoglobin ABG Oxyhemoglobin ABG Sodium ABG Potassium ABG Chloride ABG Glucose Oxyhemoglobin Carboxyhemoglobin Sodium Potassium Chloride Carbon Dioxide BUN Creatinine Glucose POC Glucose 130 H 120 H Lactic Acid Calcium Phosphorus Magnesium Total Creatine Kinase Troponin T Total Protein Albumin Triglycerides LDL Cholesterol Direct HDL Cholesterol Arterial Blood Glucose Arterial Blood Ionized Calcium Urine pH Urine WBC (Auto) Vancomycin Trough Salicylates Acetaminophen Crossmatch 12/03/20 05:57 WBC RBC Hgb Hct MCV MCH MCHC RDW Plt Count Lymph % (Auto) Mitchell % (Auto) Mitchell # (Auto) Seg Neutrophils % Seg Neuts % (Manual) Lymphocytes % (Manual) Nucleated RBC % Seg Neutrophils # Seg Neutrophils # Man Lymphocytes # (Manual) Monocytes # (Manual) PT INR ABG pH POC ABG pCO2 POC ABG pO2 ABG pO2 ABG HCO3 ABG O2 Saturation ABG Base Excess ABG Hemoglobin ABG Oxyhemoglobin ABG Sodium ABG Potassium ABG Chloride ABG Glucose Oxyhemoglobin Carboxyhemoglobin Sodium 135 L Potassium Chloride Carbon Dioxide BUN 22 H Creatinine 0.4 L Glucose 128 H POC Glucose Lactic Acid Calcium 7.7 L Phosphorus Magnesium Total Creatine Kinase Troponin T Total Protein Albumin Triglycerides LDL Cholesterol Direct HDL Cholesterol Arterial Blood Glucose Arterial Blood Ionized Calcium Urine pH Urine WBC (Auto) Vancomycin Trough Salicylates Acetaminophen Crossmatch Allied health notes reviewed: nursing
--- NOTE | 2020-12-03 11:59 | Progress Note ---
Assessment and Plan Telemetry reviewed: A. fib heart rate 80s. No events overnight Afib with RVR. Optimize rate control and antihypertensive regimen. Increase metoprolol to 50 mg twice a day. Continue Amiodarone to 200mg PO BID. Continue Midodrine 10mg PO TID. No systemic AC at this time in setting of anemia requiring PRBC tx, thrombocytopenia and sacral ulcer. Elevated Troponin Considering pt's advanced age and comorbidities will plan for conservative cardiac management. Anemia requiring transfusion Continue to hold AC in setting of anemia requiring transfusions. Acute Respiratory Failure s/p Trach. Ventilated. DVT Prophylaxis. On Lovenox DVT prophylaxis. SCDs in place. Patient currently stable cardiac condition. Continue current cardiac regimen. Will follow.. The patient has been seen in conjunction with Dr. Landa who agrees with the assessment and plan of care. - Patient Problems (1) AMS (altered mental status) Current Visit: Yes Status: Acute (2) Atrial fibrillation with RVR Current Visit: Yes Status: Acute (3) Acute respiratory failure Current Visit: Yes Status: Acute (4) Bilateral pneumonia Current Visit: Yes Status: Acute (5) Sepsis Current Visit: Yes Status: Acute (6) Sepsis associated hypotension Current Visit: Yes Status: Acute (7) Sacral decubitus ulcer, stage IV Current Visit: Yes Status: Acute (8) UTI (urinary tract infection) Current Visit: Yes Status: Acute (9) FAZAL (acute kidney injury) Current Visit: Yes Status: Acute (10) Hypomagnesemia Current Visit: Yes Status: Acute (11) Anemia Current Visit: Yes Status: Acute (12) Thrombocytopenia Current Visit: Yes Status: Acute Subjective Date of service: 12/03/20 Principal diagnosis: Acute Resp Fail, PNA, Septic Shock, Sacral Ulcer, AF with RVR Interval history: Pt is s/p Trach & PEG ventilated, awake and able to follow simple commands. Telemetry reviewed: A. fib 80s. No events overnight. Objective Last Vital Signs Temp 97.6 F 12/03/20 08:00 Pulse 89 12/03/20 11:00 Resp 11 L 12/03/20 11:00 BP 131/81 12/03/20 11:00 Pulse Ox 95 12/03/20 11:00 - Physical Examination General: No Apparent Distress, Other (intubated) HEENT: Positive: EOMI, Normocephaly, Mucus Membranes Moist Neck: Positive: neck supple, trachea midline Cardiac: Positive: irregularly irregular, S1/S2 Lungs: Positive: Ventilated Respirations Neuro: Positive: Other (awake, able to follow simple commands, aphasic s/p trach) Abdomen: Positive: Soft, Active Bowel Sounds. Negative: Tender Skin: Positive: Wound (sacral). Negative: Rash Musculoskeletal: No Fluid Collection, No Pain Extremities: Present: upper extr. pulses, lower extr. pulses, +1 Edema, Other (chronic skin changes noted) - Labs and Meds CBC 12/03/20 Range/Units 05:57 WBC 16.2 H (4.5-11.0) K/mm3 RBC 2.43 L (3.65-5.03) M/mm3 Hgb 7.4 L (11.8-15.2) gm/dl Hct 23.2 L (35.5-45.6) % Plt Count 440 (140-440) K/mm3 Comprehensive Metabolic Panel 12/03/20 Range/Units 05:57 Sodium 135 L (137-145) mmol/L Potassium 4.0 (3.6-5.0) mmol/L Chloride 100.3 (98-107) mmol/L Carbon Dioxide 27 (22-30) mmol/L BUN 22 H (9-20) mg/dL Creatinine 0.4 L (0.8-1.3) mg/dL Glucose 128 H (75-100) mg/dL Calcium 7.7 L (8.4-10.2) mg/dL - Imaging and Cardiology EKG: report reviewed, image reviewed Echo: report reviewed (10/28/2020- EF 55-60%, no significant valvular abnormalities) Repolarization changes or abnormalities: nonspecific abnormality, ST segment, and/or T wave - Allied health notes Allied health notes reviewed: nursing
--- NOTE | 2020-12-03 12:25 | Progress Note ---
Assessment and Plan Assessment and plan: 75-year-old male who is a skilled nursing resident with seizure disorder, hypertension, depression, hyperlipidemia, hypoglycemia, dysphagia, and encephalopathy who is admitted for sepsis, acute kidney injury, urinary tract infection, acute respiratory failure, electrolyte imbalances, infected sacral wound and bilateral pneumonia s/p Sepsis Acute respiratory failure with Hypoxia s/p Cardiovascular shock Infected sacral wound s/p debridement with surgery Generalized anasarca possible acute diastolic congestive heart failure Anemia Afib Bilateral pleural effusion Right and left lung atelectasis secondary to mucous plug s/p Proteus bacteremia s/p MRSA pneumonia s/p Urine tract infection Leukocytosis Acute kidney injury with vasomotor Nephropathy Acute Diarrhea ?C.diff- Test was not performed SFA occlusion - Not a candidate for surgery per Vascular Hyponatremia -ID, cardiology, CCM, surgery, vascular surgery, nephrology, surgery, WOCN consulted, appreciate recommendations -FAZAL, pneumonia, infected sacral wound, acute respiratory failure, leukocytosis, hypotension requiring vasopressor support -s/p Antibiotic therapy -10/26 tracheal aspirate with MRSA, 10/26 blood cultures x2 with Proteus mirab ilis, 10/27 urine culture possible contaminant, 11/15: Trach aspirate positive for staph coccus aureus, 11/06 occult stool positive -On mechanical ventilation, wean as tolerated, VAP bundle, CPAP trials as tolerated -Wound care per nursing -Fentanyl IVP, PO oxycodone prn -Midodrine, amiodorone -Continue home carbamazepine and remoron -S/p IVF resuscitation -HIT panel negative -11/21/20 trach/PEG placement with surgery -s/p 5 units PRBC during stay -Not a candidate for vascularization per vascular -No systemic anticoagulation per cardiology -Trend CBC and BMP GI/DVT prophylaxis: Lovenox subq, SCDs to bilateral legs while in bed, PPI Dispo: ICU, [facility] The high probability of a clinically significant, sudden or life threatening deterioration of the [pulmonary, cardiac] system(s) required my full and direct attention, intervention and personal management. The aggregate critical care time was [30] minutes. This time is in addition to time spent performing reported procedures but includes the following: [X] Data Review and interpretation [X] Patient assessment and monitoring of vital signs [X] Documentation [X] Medication orders and management History Interval history: This is a 75-year-old male who is a skilled nursing resident with seizure disorder, hypertension, depression, hyperlipidemia, hypoglycemia, dysphagia, and encephalopathy who presents to the emergency department on 10/26 via EMS for tachypnea, dry mucous membranes and hypoxia. Patient was hypotensive, febrile to 103 degrees and hypoxic in the emergency department therefore he was intubated and central IV access was obtained. Patient received 3.5 L of IV fluid in the emergency department. Patient was admitted to the hospital service with consults to CCM, surgery, WOCN and ID for Sepsis, acute kidney injury, urinary tract infection, acute respiratory failure, electrolyte imbalances, infected sacral wound and bilateral pneumonia. 10/27: Patient received additional 4 L LR for fluid resuscitation and CV monitoring was initiated. Patient is on Levophed. ID added Flagyl to vancomycin and cefepime. His trach aspirate grew staph coccus aureus. At the time my examination patient the fentanyl drip was held by RN and he was on 14 MCG of Levophed. This morning he was on assist control 450/20/6/.100. We will give additional bolus of fluids with goal CVP 10-12 and repeat labs in AM. Surgery was consulted to possible debridement. 10/28: Overnight it was noted that patient went into SVT and he was given adenosine 6 mg/12 mg / 12 mg once and was started on a Cardizem drip after no response to amnio bolus and cardiology was consulted. Currently patient remains on Levophed drip and is hypotensive and received additional 2 L of bolus for goal CVP of 10-12. Infectious disease changed cefepime/Flagyl to meropenem for GNR in his blood cultures 09/04 and will continue vancomycin. Patient currently was not well controlled on max Cardizem and cardiology initiated amiodarone. Patient still is very tachycardic. Patient is hypomagnesemic and we will replete his Mg and recheck level. We will give the patient additional to complete resolve LR this afternoon. Patient has a standing order per [facility] to bolus the patient with LR for CVP goal of 10-12. This morning he is hyperchlormeic, metabolic acidotic (bicarb drip initiated) and his B UN/creatinine slightly elevated. Patient still remains lactic acidotic. 10/29: Patient's blood culture speciated to Proteus and his tracheal aspirate is MRSA. He is currently on ceftriaxone, Flagyl and vancomycin. Patient heart rate consistently is 110-150s and cardiology has given him an amiodarone bolus today and he remains on amiodarone drip. He looks much started on IV digoxin. This morning 4 L LR bolus was ordered and we will bolus an additional 4 L of LR this afternoon. Patient still has lactic acidosis, metabolic acidosis, leukocytosis and hyperchloremia. On examination this morning patient is more edematous and he remains on Levophed and amnio drip. 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 Remains on amio, levo and sedated with fentanyl. He is hypokalemic today which was repleted, h/h 02/18 and he is being type and crossed today with 2 units PRBC ordered to be transfused. Plt drop noted, heparin discontinued and HIT ordered. Bicarb gtt discontinued. No acute events overnight. 10/31: Patient hypomagnesemia today which was repleted and cardiology has changed his IV amiodarone to p.o. Patient will get albumin per [facility]. At the time my examination patient is on assist control 450/20/6/0.40. 11/03: At the time my examination patient is on assist control 450/20/6/0.25 and sedated with fentanyl and on Levophed at 4.Patient's leukocytosis is improving he received Albumin this weekend. Patient is hypokalemic, hypomagnesemic, hypocalcemic today. We will repeat his electrolytes and recheck a BMP in the a.m. Patient received 2 units PRBC on 10/30 and his hemoglobin has been trending down. We will recheck in the a.m. 11/04: At the time of my examination patient was on Levophed 3 mcg and on VZV/CPAP 450/20/6/0.35. Patient still has leukocytosis, respiratory alkalosis, hyponatremia, hypochloremia, hypocalcemia. Today his magnesium and potassium repleted with bolus of potassium 4/magnesium 2. He received 60 mcg KCl p.o., 40 mEq of KCl IV and 2 g of magnesium sulfate. We will recheck BMP and mag and a.m. Surgery has deemed the patient to unstable for further debulking. We also consulted vascular surgery for PVD as patient has discoloration to BLE /feet. 11/05: Vascular surgery will obtain bilateral lower extremity arterial duplex to evaluate arterial flow and recommends adding as FWF to tube feedings in assisting to wean off of vasopressors. Patient has hypokalemia, hypophosphatemia and normal to low magnesium. Magnesium, potassium and phosphate have been repleted. Patient still remains on ventilator support but on CPAP trial this morning. Patient HIT is still pending. This morning at the time of my examination patient was on assist-control 450/20/6/0.35 and he tolerated CPAP trial for 4 hours yesterday. He was on Levophed 0.5 and his rectal tube output was noted at 1000 mL. 11/06: This morning patient was on a CPAP trial and became hypoxic with SPO2 into the 80s and was switched back to assist control. Patient's vent settings are assist control tidal and 450, rate 20, PEEP 6, FiO2 0.25. Today patient has leukocytosis, hypernatremia, hyperchloremia, hypocalcemia and hypophosphatemia. We will repeat a phosphate. His free water flushes have been increased and his magnesium has been repleted again. Patient has been started on Lovenox given improvement in his platelet count and on midodrine to help keep Levophed off. Infectious disease will continue p.o. vancomycin for total of 10 days. 11/07: Patient failed his CPAP trial yesterday and has been placed on CPAP 10/6 again this morning by RT. Overnight patient was rested on assist control tolerance by 50, rate of 20, pressure support 6 and FiO2 30%. His lab work is still pending for this morning. On repeat his phosphorus was 4.50 yesterday and repletion was discontinued. 11/08/2020; patient is off pressors currently on midodrine. Patient is on ceftriaxone and vancomycin. Patient is on assist control. Patient was evaluated by vascular surgery for peripheral vascular disease with SFA occlusion and recommend no intervention at this time. Prognosis is guarded. Patient is on 2 L of intranasal oxygen. We will put speech therapy evaluation. 11/09/2020; patient is currently off pressors and on midodrine. Continue with ceftriaxone, Flagyl and vancomycin per ID recommendation. Patient's blood culture grew Proteus mirabilis and tracheal aspirate grew MRSA. Patient was evaluated by vascular surgery for PVD with SFA occlusion and recommend no intervention at this time. Patient is on 2 L of intranasal oxygen. Currently patient is on tube feeding and follow speech therapy evaluation. 11/10: Overnight noted to have increased RR, ? Awaiting speech eval considering patient still on Tube feeds. Continue to monitor Hypernatremia. Antibiotics today will be D12/14. Will continue discharge planning on discussion with CM. Patient nonrebreather. Possibly back on congestive heart failure will need appropriate diuresis. Transferred back to [facility]. Discussed with gunner mate and also with cardiology. 11/11: Remains lethargic remains in respiratory distress chest x-ray shows right lung collapse likely secondary to mucous plug. Discussed with gunner mate will likely undergo a bronchoscopy today. We will also continue to monitor as we did suggest possible pleural effusion which we think may be less likely but if that seems to be the case we will send patient for thoracentesis following the bronchoscopy. Continue to monitor hemoglobin continue to monitor diarrhea antibiotics management per infectious disease. I did speak and update patient's cousin yesterday. Patient still with edema will await cardiology reevaluation for possible further diuresis. 11/12: Patient for Bronchoscopy today. Continue supportive care 11/13: Patient Clinically improving, tolerated Bronchoscopy yesterday. Awaiting am labs today. Overnight had bradycardia. Continue weaning oxygen. Discussed with health care attorney patient did have bronchial plug plus pleural effusion but will address. Will monitor serial x-rays. Discussed with nursing staff about my discussion with the brother. Continue supportive care. PER Brother,([phone] patient has had recurrent knee aspiration. Cardiology to re-evaluate today for Bradycardia noted overnight 11/14: Patient had a repeat bronchoscopy yesterday of the right lung due to mucou s plug. Script Girl did have a conversation with the cousin as one of the considerations may be a trach due to recurrent pulmonary mucous plug and also significant debility for patient's overall medical condition. And his inability to maintain his airway. We will start him on a low round of D5 until diet is established. We will continue to monitor clinical status this morning. Plan discussed with nursing staff patient and also with division manager 11/15: Continues to show some improvement, will check CXR today. Wean oxygen as tolerated, will likely need Trach per pulmonary. WBC improving, will monitor Sodium level. Patient on dopamin. 11/16: Patient overnight required intubation due to worsening respiratory failure secondary to complete opacification of the right lung again. This has appeared to cleared up this morning following the intuabation. Cousin advised of the finding, he will try to get us all his records because he believes that the patient has had a trach done before but is not sure. Started on Pressors due to hypotension 11/17: Today general surgery was consulted for trach/PEG placement, patient grew staph and tracheal aspirate and his cefepime was stopped and [facility] ordered a trial dose of Lasix. At the time my examination patient was on 1 mcg of fentanyl and dopamine 5 mcg/kg per cardiology. He has hyperchloremia and his lab work and is anemic today at 6.6/20.2. Patient received 1 unit PRBC. We will obtain a CBC in the a.m. 11/18: No acute events reported overnight, patient was given Lasix again by [facility], surgery has requested transfusion of one 1 unit PRBC despite H/H being 7.4/23.4 and plans to do a tracheostomy and plans to perform PEG and trach placement on 11/21/2020. We will follow up BMP and CBC in the a.m. Coags ordered. 11/19: Patient's next of kin still Mr. Buckley's next of kin/POA is still undecided about trach/PEG, surgeon aware. [facility] has given the patient another dose of Lasix and he was noted to be in atrial fibrillation with RVR this morning. Cardiology is aware and they have opted to resume amiodarone drip for rate control. We will obtain a BMP in the a.m. 11/20: At the time of examination patient remains on amiodarone 0.05 mcg and fentanyl 1 mcg on assist control tidal volume 500, rate 20, PEEP 6, FiO2 of 40%. Patient will have Lasix dose again. Dr. Quintanilla updated the family today. 11/21: Patient remains atrial fibrillation but is better rate controlled. Patient was taking to the OR for trach/PEG General surgery. No acute events reported overnight. Patient was given diuresed again and we will recheck a BMP in the a.m. 11/22. Patient tolerated tracheostomy. Alert no new concerns. Patient able to not that he is not in pain. 11/23 patient appears to be tolerating PEG tube feedings able to use tube fee dings no new concerns over p.m. alert improving respiratory failure 11/24: No acute events overgnight. At the time my examination patient was on assist control tidal volume 500, rate 12, PEEP 6, FiO2 50%. Patient fentanyl drip discontinued and placed on IV push fentanyl 50 mcg every 2 hours. RN to remove right IJ. 11/25: Continue CPAP trials as tolerated, amiodarone decreased, midodrine and met oprolol initiated by cardiology. Patient had an episode of emesis however he denied being nauseous and did not have any emesis when trach suctioned. Patient remains afebrile. Midline was placed yesterday and IJ removed. Patient has leukocytosis but remains off of vasopressors, antibiotics and is febrile. At the time of examination patient is on assist control 21 500, rate 20, PEEP 6 and FiO2 45%. 11/26: Cardiology has increased his metoprolol and decreased his amiodarone due to soft blood pressures. Patient is adamant that he would like to go home. We will continue CPAP trials. 11/27: Patient CXR shows pulmonary edema and we will repeat Lasix. Continue CPAP trials 11/29: Patient on mechanical ventilation with s/p trach/PEG on 11/21/2020. Patient currently with PSV/CPAP mode FiO2 30%, PEEP of 6 and pressure support of 12. Continue vent weaning per pulmonary. Continue fentanyl and wean as tolerated. Tracheostomy care, secretion control and airway management. Gastrostomy tube care. Tube feedings with aspiration precautions. Continue midodrine and amiodarone. 11/30: Patient completed antibiotics. PSV trials failed yesterday. Continue PSV trials. Patient currently with PSV setting with FiO2 30%, pressure support 10 and PEEP of 6. Cont. Albuterol nebs plus CPT vest. Continue tube feedings with aspiration precautions. Tracheostomy care, secretion control and airway manag ement. LTAC placement pending. 12/01: Continue CPAP trials. Awaiting placement. Continue current medical management. 12/02: Patient will be tried CPAP trials today, will receive Lasix again, still aw aiting placement. His home med of carbamazepine has been restarted. We will gradually add home medications. 5/5:L Lasix again, CPAP trial again, added Remeron. Continue supportive care. [facility] patient likely transfer tomorrow. Hospitalist Physical - Constitutional Vitals: Temp Pulse Resp BP Pulse Ox 97.6 F 78 23 128/87 95 12/03/20 08:00 12/03/20 12:00 12/03/20 12:00 12/03/20 12:00 12/03/20 11:30 General appearance: Present: no acute distress, other (Patient resting comfortably on mechanical ventilation) - EENT Eyes: Present: PERRL, EOM intact ENT: hearing decreased, poor dentition - Neck Neck: Present: normal ROM - Respiratory Respiratory effort: normal Respiratory: bilateral: CTA - Cardiovascular Rhythm: regular Heart Sounds: Present: S1 & S2. Absent: systolic murmur, diastolic murmur - Extremities Extremities: no ischemia, pulses intact, pulses symmetrical, normal temperature, normal color Extremity abnormal: edema Peripheral Pulses: within normal limits - Abdominal General gastrointestinal: soft, non-tender, non-distended, normal bowel sounds - Integumentary Integumentary: Present: warm, dry - Psychiatric Psychiatric: cooperative - Neurologic Neurologic: moves all extremities - Allied Health Allied health notes reviewed: nursing, RT, social work HEART Score - HEART Score EKG: Non-specific Age: > 65 Risk factors: > 3 risk factors or hx of atherosclerotic disease Troponin: Troponin T 0.123 ng/mL (0.00-0.029) H* 11/13/20 23:15 Troponin: < normal limit - Critical Actions Critical Actions: 4-6 pts:12-16.6% risk of adverse cardiac event. Should be admitted Results - Labs CBC & Chem 7: 12/03/20 05:57 12/03/20 05:57 Labs: Laboratory Last Values WBC 16.2 K/mm3 (4.5-11.0) H 12/03/20 05:57 RBC 2.43 M/mm3 (3.65-5.03) L 12/03/20 05:57 Hgb 7.4 gm/dl (11.8-15.2) L 12/03/20 05:57 Hct 23.2 % (35.5-45.6) L 12/03/20 05:57 MCV 96 fl (84-94) H 12/03/20 05:57 MCH 31 pg (28-32) 12/03/20 05:57 MCHC 32 % (32-34) 12/03/20 05:57 RDW 17.8 % (13.2-15.2) H 12/03/20 05:57 Plt Count 440 K/mm3 (140-440) 12/03/20 05:57 Lymph % (Auto) 9.5 % (13.4-35.0) L 11/30/20 05:14 [place] % (Auto) 10.3 % (0.0-7.3) H 11/30/20 05:14 Eos % (Auto) 0.5 % (0.0-4.3) 11/30/20 05:14 Baso % (Auto) 0.4 % (0.0-1.8) 11/30/20 05:14 Lymph # (Auto) 1.5 K/mm3 (1.2-5.4) 11/30/20 05:14 [place] # (Auto) 1.6 K/mm3 (0.0-0.8) H 11/30/20 05:14 Eos # (Auto) 0.1 K/mm3 (0.0-0.4) 11/30/20 05:14 Baso # (Auto) 0.1 K/mm3 (0.0-0.1) 11/30/20 05:14 Add Manual Diff Complete 11/23/20 10:23 Total Counted 100 11/23/20 10:23 Seg Neutrophils % 79.3 % (40.0-70.0) H 11/30/20 05:14 Seg Neuts % (Manual) 94.0 % (40.0-70.0) H 11/23/20 10:23 Band Neutrophils % 17.0 % 10/27/20 03:30 Lymphocytes % (Manual) 5.0 % (13.4-35.0) L 11/23/20 10:23 Monocytes % (Manual) 1.0 % (0.0-7.3) 11/23/20 10:23 Eosinophils % (Manual) 2.0 % (0.0-4.3) 10/27/20 03:30 Metamyelocytes % 4.0 % 10/27/20 03:30 Nucleated RBC % Not Reportable 11/23/20 10:23 Seg Neutrophils # 12.3 K/mm3 (1.8-7.7) H 11/30/20 05:14 Seg Neutrophils # Man 10.6 K/mm3 (1.8-7.7) H 11/23/20 10:23 Band Neutrophils # 0.0 K/mm3 11/23/20 10:23 Lymphocytes # (Manual) 0.6 K/mm3 (1.2-5.4) L 11/23/20 10:23 Abs React Lymphs (Man) 0.0 K/mm3 11/23/20 10:23 Monocytes # (Manual) 0.1 K/mm3 (0.0-0.8) 11/23/20 10:23 Eosinophils # (Manual) 0.0 K/mm3 (0.0-0.4) 11/23/20 10:23 Basophils # (Manual) 0.0 K/mm3 (0.0-0.1) 11/23/20 10:23 Metamyelocytes # 0.0 K/mm3 11/23/20 10:23 Myelocytes # 0.0 K/mm3 11/23/20 10:23 Promyelocytes # 0.0 K/mm3 11/23/20 10:23 Blast Cells # 0.0 K/mm3 11/23/20 10:23 WBC Morphology Not Reportable 11/23/20 10:23 Hypersegmented Neuts Not Reportable 11/23/20 10:23 Hyposegmented Neuts Not Reportable 11/23/20 10:23 Hypogranular Neuts Not Reportable 11/23/20 10:23 Smudge Cells Not Reportable 11/23/20 10:23 Toxic Granulation Not Reportable 11/23/20 10:23 Toxic Vacuolation Not Reportable 11/23/20 10:23 Dohle Bodies Not Reportable 11/23/20 10:23 Pelger-Huet Anomaly Not Reportable 11/23/20 10:23 Kassi Rods Not Reportable 11/23/20 10:23 Platelet Estimate Consistent w auto 11/23/20 10:23 Clumped Platelets Not Reportable 11/23/20 10:23 Plt Clumps, EDTA Not Reportable 11/23/20 10:23 Large Platelets Not Reportable 11/23/20 10:23 Giant Platelets Not Reportable 11/23/20 10:23 Platelet Satelliting Not Reportable 11/23/20 10:23 Plt Morphology Comment Not Reportable 11/23/20 10:23 RBC Morphology Normal 11/23/20 10:23 Dimorphic RBCs Not Reportable 11/23/20 10:23 Polychromasia Not Reportable 11/23/20 10:23 Hypochromasia Not Reportable 11/23/20 10:23 Poikilocytosis Not Reportable 11/23/20 10:23 Anisocytosis Not Reportable 11/23/20 10:23 Microcytosis Not Reportable 11/23/20 10:23 Macrocytosis Not Reportable 11/23/20 10:23 Spherocytes Not Reportable 11/23/20 10:23 Pappenheimer Bodies Not Reportable 11/23/20 10:23 Sickle Cells Not Reportable 11/23/20 10:23 Target Cells Not Reportable 11/23/20 10:23 Tear Drop Cells Not Reportable 11/23/20 10:23 Ovalocytes Not Reportable 11/23/20 10:23 Helmet Cells Not Reportable 11/23/20 10:23 [place] Bodies Not Reportable 11/23/20 10:23 [place] Rings Not Reportable 11/23/20 10:23 Rhea Cells Not Reportable 11/23/20 10:23 Bite Cells Not Reportable 11/23/20 10:23 Crenated Cell Not Reportable 11/23/20 10:23 Elliptocytes Not Reportable 11/23/20 10:23 Acanthocytes (Spur) Not Reportable 11/23/20 10:23 Rouleaux Not Reportable 11/23/20 10:23 Hemoglobin C Crystals Not Reportable 11/23/20 10:23 Schistocytes Not Reportable 11/23/20 10:23 Malaria parasites Not Reportable 11/23/20 10:23 Richard Bodies Not Reportable 11/23/20 10:23 Hem Pathologist Commnt No 11/23/20 10:23 PT 14.7 Sec. (12.2-14.9) 11/19/20 06:36 INR 1.15 (0.87-1.13) H 11/19/20 06:36 APTT 27.9 Sec. (24.2-36.6) 10/26/20 17:25 Heparin Anti-Xa, Unfract Negative (Negative) 11/03/20 11:01 ABG pH 7.515 (7.320-7.450) H 11/28/20 03:56 POC ABG pCO2 38.5 mmHg (32.0-48.0) 11/28/20 03:56 ABG pCO2 43.4 mm Hg 11/19/20 Unknown POC ABG pO2 74.5 mmHg (83-108) L 11/28/20 03:56 ABG pO2 72.4 mm Hg (80.0-90.0) L 11/19/20 Unknown POC ABG HCO3 30.4 11/28/20 03:56 ABG HCO3 26.9 mmol/L (20.0-26.0) H 11/19/20 Unknown ABG O2 Saturation 95.8 (0-100) 11/28/20 03:56 ABG O2 Content 11.3 (0.0-44) 11/19/20 Unknown POC ABG Base Excess 6.9 11/28/20 03:56 ABG Base Excess 2.0 mmol/L (-2.0-3.0) 11/19/20 Unknown ABG Hemoglobin 8.4 (12.0-17.5) L 11/28/20 03:56 ABG Oxyhemoglobin 94.8 (94-98) 11/28/20 03:56 ABG Carboxyhemoglobin 2.0 % (0.0-5.0) 11/19/20 Unknown ABG Methemoglobin 0.3 (0.0-1.5) 11/28/20 03:56 ABG Sodium 136.5 mmol/L (136.0-145.0) 11/28/20 03:56 ABG Potassium 3.9 mmol/L (3.40-4.50) 11/28/20 03:56 ABG Chloride 104.0 mmol/L (98-107) 11/28/20 03:56 ABG Glucose 130 mg/dL (65-95) H 11/28/20 03:56 Oxyhemoglobin 94.1 % (95.0-99.0) L 11/19/20 Unknown Carboxyhemoglobin 0.7 (0.5-1.5) 11/28/20 03:56 FiO2 30 % 11/19/20 Unknown FiO2 % 30.0 11/28/20 03:56 Sodium 135 mmol/L (137-145) L 12/03/20 05:57 Potassium 4.0 mmol/L (3.6-5.0) 12/03/20 05:57 Chloride 100.3 mmol/L (98-107) 12/03/20 05:57 Carbon Dioxide 27 mmol/L (22-30) 12/03/20 05:57 Anion Gap 12 mmol/L 12/03/20 05:57 BUN 22 mg/dL (9-20) H 12/03/20 05:57 Creatinine 0.4 mg/dL (0.8-1.3) L 12/03/20 05:57 Estimated GFR > 60 ml/min 12/03/20 05:57 BUN/Creatinine Ratio 55 % 12/03/20 05:57 Glucose 128 mg/dL (75-100) H 12/03/20 05:57 POC Glucose 110 mg/dL (70-105) H 12/03/20 11:37 Hemoglobin A1c 5.5 % (4-6) 10/27/20 04:42 Lactic Acid 4.30 mmol/L (0.7-2.0) H* 10/31/20 Unknown Calcium 7.7 mg/dL (8.4-10.2) L 12/03/20 05:57 Phosphorus 4.50 mg/dL (2.5-4.5) D 11/06/20 13:03 Magnesium 1.70 mg/dL (1.7-2.3) 11/21/20 09:47 Total Bilirubin < 0.20 mg/dL (0.1-1.2) 11/27/20 05:55 AST 8 units/L (5-40) 11/27/20 05:55 ALT 8 units/L (7-56) 11/27/20 05:55 Alkaline Phosphatase 87 units/L (35-129) 11/27/20 05:55 Total Creatine Kinase 31 units/L (55-170) L 10/26/20 17:28 Troponin T 0.123 ng/mL (0.00-0.029) H* 11/13/20 23:15 Total Protein 6.1 g/dL (6.3-8.2) L 11/27/20 05:55 Albumin 1.7 g/dL (3.9-5) L 11/27/20 05:55 Albumin/Globulin Ratio 0.4 % 11/27/20 05:55 Triglycerides 190 mg/dL (2-149) H 10/26/20 17:25 Cholesterol 92 mg/dL (50-199) 10/26/20 17:25 LDL Cholesterol Direct 33 mg/dL (50-130) L 10/26/20 17:25 HDL Cholesterol 18 mg/dL (40-59) L 10/26/20 17:25 Cholesterol/HDL Ratio 5.11 % 10/26/20 17:25 Serotonin Release Assay See scanned results 11/03/20 11:01 TSH 1.490 mlU/mL (0.270-4.200) 10/26/20 17:28 Arterial Blood Glucose 130 mg/dL (65-95) H 11/28/20 03:56 Arterial Blood Ionized Calcium 4.5 mg/dL (4.6-5.3) L 11/28/20 03:56 Urine Color Yellow (Yellow) 10/27/20 Unknown Urine Turbidity Turbid (Clear) 10/27/20 Unknown Urine pH 8.0 (5.0-7.0) H 10/27/20 Unknown Ur Specific [place] 1.020 (1.003-1.030) 10/27/20 Unknown Urine Protein >500 mg/dL (Negative) 10/27/20 Unknown Urine Glucose (UA) Neg mg/dL (Negative) 10/27/20 Unknown Urine Ketones Neg mg/dL (Negative) 10/27/20 Unknown Urine Blood Sm (Negative) 10/27/20 Unknown Urine Nitrite Neg (Negative) 10/27/20 Unknown Urine Bilirubin Neg (Negative) 10/27/20 Unknown Urine Urobilinogen < 2.0 mg/dL (<2.0) 10/27/20 Unknown Ur Leukocyte Esterase Mod (Negative) 10/27/20 Unknown Urine WBC (Auto) > 182.0 /HPF (0.0-6.0) H 10/27/20 Unknown Urine RBC (Auto) 35.0 /HPF (0.0-6.0) 10/27/20 Unknown Urine WBC Clumps 3+ /HPF 10/27/20 Unknown Urine Mucus 3+ /HPF 10/27/20 Unknown Urine Yeast (Budding) 3+ /HPF 10/27/20 Unknown Vancomycin Trough 18.0 ug/mL (5.0-20.0) 11/19/20 09:06 Salicylates < 0.3 mg/dL (2.8-20.0) L 10/26/20 17:28 Acetaminophen 5.0 ug/mL (10.0-30.0) L 10/26/20 17:28 Heparin-induced Plt Ab Negative (Negative) 11/03/20 11:01 UF Heparin High Dose 0 % Release 11/03/20 11:01 MOISES UFH Low Dose 0.1 2 % Release 11/03/20 11:01 MOISES UFH Low Dose 0.5 0 % Release 11/03/20 11:01 Coronavirus (PCR) Negative (Negative) 10/27/20 Unknown Blood Type O POSITIVE 11/17/20 11:10 Antibody Screen Negative 11/17/20 11:10 Crossmatch See Detail 11/17/20 11:10 Rivas/IV: Voiding Method Indwelling Catheter Active Medications - Current Medications Current Medications: Generic Name Dose Route Start Last Admin Trade Name Freq PRN Reason Stop Dose Admin Acetaminophen 650 mg 10/26/20 22:22 12/02/20 18:09 Acetaminophen 325 Mg Tab PO 650 mg Q4H PRN Administration Pain MILD(1-3)/Fever >100.5/TIERNEY Albuterol 2.5 mg 11/11/20 14:00 12/03/20 07:54 Albuterol 2.5 Mg/3 Ml Nebu IH 2.5 mg TIDRT MARSHALL Administration Amiodarone HCl 200 mg 11/25/20 10:00 12/03/20 09:53 Amiodarone 200 Mg Tab PO 200 mg BID MARSHALL Administration Lipase/Protease/Amylase 1 each 10/28/20 13:18 Lipase 10,500/Protease 25,000/Amylase 43,750 (Units) Dr Casper FEEDTUBE PRN PRN For Clogged Feeding Tube Carbamazepine 200 mg 12/02/20 10:00 12/03/20 09:00 Carbamazepine 200 Mg Tab PO 200 mg TID MARSHALL Administration Enoxaparin Sodium 40 mg 11/22/20 22:00 12/02/20 21:48 Enoxaparin 40 Mg/0.4 Ml Inj SUB-Q 40 mg QDAY@2200 MARSHALL Administration Protocol Famotidine 20 mg 11/24/20 22:00 12/03/20 09:52 Famotidine 20 Mg Tab PO 20 mg BID MARSHALL Administration Fentanyl 50 mcg 05/05/21 10:20 Fentanyl 100 Mcg/2 Ml Inj IV Q2H PRN Pain , Severe (7-10) Furosemide 20 mg 12/02/20 10:00 12/03/20 09:54 Furosemide 20 Mg/2 Ml Inj IV 12/04/20 10:01 20 mg DAILY MARSHALL Administration Hydrophilic Ointment 1 applic 11/15/20 22:30 Lip Therapy Vaseline TP Q2HR PRN Dry Lips Norepinephrine 4 mg in 250 mls @ 7.5 mls/hr 11/15/20 23:45 11/17/20 01:37 Levophed Drip 4 Mg/Ns 250 Ml IV 0 mcg/min TITR MARSHALL 0 mls/hr Titration Protocol 2 MCG/MIN Metoprolol Tartrate 50 mg 12/03/20 10:00 12/03/20 09:55 Metoprolol Tartrate 25 Mg Tab PO 50 mg BID MARSHALL Administration Midodrine 10 mg 11/06/20 12:00 12/03/20 08:53 Midodrine 5 Mg Tab PO 10 mg TID@0800,1200,1600 MARSHALL Administration Mirtazapine 7.5 mg 12/03/20 22:00 Mirtazapine 15 Mg Tab PO QHS MARSHALL Multi-Ingred Cream/Lotion/Oil/Oint 1 applic 11/15/20 22:30 Mineral Oil/Petrolatum, White Ophth Oint 3.5 Gm OU Q4HR PRN Dry Eye(s) Oxycodone/Acetaminophen 1 tab 12/02/20 14:57 12/03/20 01:16 Oxycodone /Acetaminophen 5-325mg Tab PO 1 tab Q6H PRN Administration Pain, Moderate (4-6) Simple Syrup 15 ml 10/28/20 13:18 11/10/20 16:01 Simple Syrup 15 Ml FEEDTUBE 15 ml PRN PRN Administration Hypoglycemia Simple Syrup 30 ml 10/28/20 13:18 Simple Syrup 15 Ml FEEDTUBE PRN PRN Hypoglycemia Sodium Bicarbonate 325 mg 10/28/20 13:18 Sodium Bicarbonate 325 Mg Tab FEEDTUBE PRN PRN For Clogged Feeding Tube Sodium Hypochlorite 1 applic 10/28/20 10:00 12/03/20 09:54 Sodium Hypochlorite, [place]in's 1/2 Strength (0.25%) 473 Ml Topical Soln TP 1 applicatio BID MARSHALL Administration Nutrition/Malnutrition Assess - Dietary Evaluation Nutrition/Malnutrition Findings: Nutrition Notes Start: 10/27/20 09:15 Freq: Status: Active Protocol: Document 12/02/20 10:15 AT (Rec: 12/02/20 10:33 AT [id number]) Co-Sign 12/02/20 10:15 CW Nutrition Notes Initial or Follow up Reassessment Current Diagnosis Acute Kidney Injury,Decubitus( Pressure Ulcer),Sepsis, Hypertension,Respiratory Failure,Hyperlipidemia Other Pertinent Diagnosis AMS, MRSA, Encephalopathy, Metabiloc Acidosis, pneu ,FTT Current Diet Vital AF at 70 ml/hr Labs/Tests 11/30/20 BUN 21 Cr 0.4 Ca 7.7 Pertinent Medications Lasix Levophed Pancreaze Height 6 ft 2 in Weight 123.7 kg [place] Body Weight (kg) 86.36 BMI 35.0 Weight change and time frame Wt change noted. Weight Status Obese Subjective/Other Information Follow-up for TF tolerance. Pt is s/p trach and PEG. Visited pt at bedside and observed TF running Vital AF at goal rate of 70 mL/hr and is tolerating without incident. Percent of energy/protein needs met: 100%/95% Burn Absent Trauma Absent GI Symptoms Diarrhea,Last BM Difficulty In Swallowing,Chewing Skin Integrity/Comment Multiple pressure ulcer,1 infected Current % PO Negligible Minimum of two criteria No Fluid Accumulation Mild (non-severe) #2 Nutrition Diagnosis Increased nutrient needs ( specify in comment below) Diagnosis Progress(for reassessment Continues documentation) #1 Nutrition Diagnosis Inadequate oral intake Diagnosis Progress(for reassessment Continues documentation) Is patient on ventilator? Yes Is Patient Ambulatory and/or Out of Bed No REE-([facility]-confined to bed) 2449.908 Kcal/Kg value to use for calculation 16 Approximate Energy Requirements Using 1979 kcal/Kg Calculation Used for Recommendations Kcal/kg Additional Notes PRO needs: 126-158 g(1.2-1.5 g /kg AdBW 105 kg) Nutrition Intervention Change Diet Order: Continue Nutrition Support: Vital AF at 70 ml/hr with a free water flush of 115 ml q4h Kcal 2,016 Protein (gm) 126 Fluid (mL) 1,362 Goal #1 TF tolerance Goal #2 Meet at least 75% EER and protein needs via TF Goal #3 wound healing Anticipated Discharge Needs: TF Follow-Up By: 12/05/20 Additional Comments F/U for TF tolerance, stable weight
--- NOTE | 2020-12-03 13:05 | Progress Note ---
Assessment and Plan Cultures: 10/26/2020 tracheal aspirate culture: MRSA 10/26/2020 blood culture: Proteus 10/27/2020 urine culture: Mixed hien 11/15/2020 sputum culture: MRSA A/P: 75-year-old male, [facility] resident with seizure disorder, hypertension, depression, hyperlipidemia, chronic encephalopathy was sent to the hospital with worsening mental status: #Septic shock: probably from pneumonia. Resolved #Acute hypoxic respiratory failure: on the vent, s/p trach. #Proteus bacteremia: multifactorial from infected sacral decubitus ulcer, bilateral pneumonia, UTI. S/P abx. #Acute diarrhea: ?C. difficile, improved on vancomycin p.o. Diarrhea improved, Cdiff test was not able to be done. #Necrotic, infected sacral decubitus ulcer: underwent debridement 10/29/2020, also noted to have brittle coccyx consistent with osteomyelitis. s/p abx. #UTI: UA with significant pyuria. Culture with mixed hien. S/P abx. #FAZAL: resolved. #PVD: SFA occlusion. Not a candidate for revascularization per vascular Recs: -Leucocytosis multifactorial including from ischemic feet/digits, large necrotic sacral wound. Monitor for fever, remains off pressors. Monitor off antibiotics for now. -Continue local wound care -Guarded prognosis Stephania Starr MD, FACP [facility] ([facility] O: [phone] F: [phone] Subjective Date of service: 12/03/20 Principal diagnosis: Acute Resp Fail, PNA, Septic Shock, Sacral Ulcer, AF with RVR Interval history: One low grade fever. Remains on the vent via trach, on PSV mode today. Awake. Objective - Exam Narrative Exam: Physical Exam: Constitutional: awake, on the vent Head, Ears, Nose: Normocephalic, atraumatic. External ears, nose normal Eyes: Conjunctivae/corneas clear. No icterus. No ptosis. Neck: trach Oral: limited Cardiovascular: S1, S2 + Respiratory: AE fair bilaterally and equal GI: Soft, bowel sounds +, PEG + Musculoskeletal: Anasarca. Bilateral lower extremities with wounds, ischemic digits, large necrotic sacral wound + Skin: No rash or abscess. Hem/Lymphatic: No palpable cervical or supraclavicular nodes. No lymphangitis Psych: no agitation Neurological: awake, on the vent via trach - Constitutional Vitals: Vital Signs Temp Pulse Resp BP Pulse Ox 98.3 F 78 23 128/87 95 12/03/20 12:00 12/03/20 12:00 12/03/20 12:00 12/03/20 12:00 12/03/20 11:30 Temperature -Last 24 Hours Temperature 98.3 F Temperature 97.6 F Temperature 97.7 F Temperature 98.9 F Temperature 100.1 F Temperature 99.8 F - Labs CBC & Chem 7: 12/03/20 05:57 12/03/20 05:57 Labs: Abnormal lab results 12/02/20 12/03/20 12/03/20 Range/Units 17:31 05:57 05:57 WBC 16.2 H (4.5-11.0) K/mm3 RBC 2.43 L (3.65-5.03) M/mm3 Hgb 7.4 L (11.8-15.2) gm/dl Hct 23.2 L (35.5-45.6) % MCV 96 H (84-94) fl RDW 17.8 H (13.2-15.2) % Sodium 135 L (137-145) mmol/L BUN 22 H (9-20) mg/dL Creatinine 0.4 L (0.8-1.3) mg/dL Glucose 128 H (75-100) mg/dL POC Glucose 120 H (70-105) mg/dL Calcium 7.7 L (8.4-10.2) mg/dL 12/03/20 Range/Units 11:37 WBC (4.5-11.0) K/mm3 RBC (3.65-5.03) M/mm3 Hgb (11.8-15.2) gm/dl Hct (35.5-45.6) % MCV (84-94) fl RDW (13.2-15.2) % Sodium (137-145) mmol/L BUN (9-20) mg/dL Creatinine (0.8-1.3) mg/dL Glucose (75-100) mg/dL POC Glucose 110 H (70-105) mg/dL Calcium (8.4-10.2) mg/dL
--- NOTE | 2020-12-03 15:48 | Discharge Summary ---
Providers - Providers Date of Admission: 10/26/20 18:32 Attending physician: REJI PECK MD 10/26/20 17:25 Consult to Dietitian/Nutrition [CONS] Routine Physician Instructions: Reason For Exam: Reason for Consult: Write/Manage Tube Feeding Consult to Physician [CONS] Stat Comment: Consulting Provider: SHRUTHI VILLAGOMEZ Physician Instructions: Reason For Exam: Sepsis, acute respiratory failure Consult to Physician [CONS] Stat Comment: Consulting Provider: TAURUS EDWARDS Physician Instructions: Reason For Exam: sepsis infected wound 10/26/20 22:15 Consult to Wound/ET Nurse [CONS] Stat Reason For Exam: wound eval- sacral, bilat. heels, buttocks 10/26/20 22:39 Consult to Wound/ET Nurse [CONS] Routine Reason For Exam: wound eval 10/27/20 13:16 Consult to Physician [CONS] Routine Comment: Consulting Provider: MATILDE SEBASTIAN Physician Instructions: Reason For Exam: sepsis 10/28/20 01:38 Consult to Cardiology [CONS] Routine Consulting Provider: CT PARKS Reason For Exam: Cardiac Arrythmia 11/04/20 13:02 Consult to Physician [CONS] Routine Comment: CALLED ANSW. VAZQUEZ/DEISY Consulting Provider: GEORGE PATE Physician Instructions: Reason For Exam: ?pvd 11/08/20 11:59 Speech Therapy Evaluation and Treat [CONS] Routine Reason For Exam: Swallow evaluation 11/10/20 11:35 Consult to PICC Line RN [CONS] Urgent Reason For Exam: access in cirtical ill patient Type Line:: PICC 11/15/20 22:30 Consult to Dietitian/Nutrition [CONS] Routine Physician Instructions: Reason For Exam: Reason for Consult: Evaluate nutritional intake 11/17/20 13:56 Consult to Physician [CONS] Routine Comment: left. mess. to dr. amaya o/miguelina franco/deisy Consulting Provider: DEBI MARTINEZ Physician Instructions: Reason For Exam: trach and peg 11/23/20 10:28 Consult to Dietitian/Nutrition [CONS] Routine Physician Instructions: Reason For Exam: Reason for Consult: Write/Manage Tube Feeding 11/24/20 13:47 Midline [Consult to PICC Line RN] [CONS] Routine Reason For Exam: Midline Insertion Type Line:: Midline Primary care physician: SHIP UNLOADER Hospitalization Condition: Stable Hospital course: This is a 75-year-old male who is a snf resident with seizure disorder, hypertension, depression, hyperlipidemia, hypoglycemia, dysphagia, and encephalopathy who presents to the emergency department on 10/26 via EMS for tachypnea, dry mucous membranes and hypoxia. Patient was hypotensive, febrile to 103 degrees and hypoxic in the emergency department therefore he was intubated and central IV access was obtained. Patient received 3.5 L of IV fluid in the emergency department. Patient was admitted to the hospital service with consults to CCM, surgery, WOCN and ID for Sepsis, acute kidney injury, urinary tract infection, acute respiratory failure, electrolyte imbalances, infected sacral wound and bilateral pneumonia. Patient was assessed today with LR with over 12 L. On 10/28 patient went into SVT and was giving adenosine x3 started on a Cardizem drip with a response and an amiodarone bolus was given and cardiology was consulted. Patient was on vasopressor support and had electrolyte imbalances which were repleted. On 10/29 his blood culture speciated out to Proteus and his trach aspirate grew MRSA and he was treated with appropriate antibiotics he also received surgical debridement at bedside and was noted to have osteomyelitis to coccus. On 11/03 patient received 2 units of PRBC. On 11/05 vascular surgery obtained bilateral lower extremity arterial duplex however and noted SFA occlusion however the patient is not a candidate for vascular surgery. Patient developed thrombocytopenia during stay and was taken off anticoagulation. However with recovery of his platelets he was started on Lovenox for anticoagulation. Patient was able to be extubated on 11/08 and was transferred to the floor. On 11/10 patient was noted to have tachypnea and was transferred back to [facility] for closer monitoring. On 11/12 patient received a bronchoscopy which showed a mucous plug and pleural effusion and chest x-ray on 11/11 showed right lung collapse likely secondary to mucous p lug. Patient has been in atrial fibrillation however he developed bradycardia. Patient had a repeat bronchoscopy on 11/14 and he was reintubated on 11/16 due to worsening respiratory failure secondary to complete opacification of right lung again. Patient received 2 additional units of PRBC for anemia. Patient received a trach and PEG with general surgery on 11/21. Patient was started on CPAP trials on 11/25. Patient has been given Lasix consistently over the past couple days due to pulmonary edema. His home med of carbamazepine and Remeron has been restarted. Patient will be transferred to LTAC for continued care including wound care and weaning from the ventilator for possible liberation. Patient will need to follow-up with his primary care physician, digital forensics examiner, wound care clinic and surgery for further care. Assessment and Plan 75-year-old male who is a snf resident with seizure disorder, hypertension, depression, hyperlipidemia, hypoglycemia, dysphagia, and encephalopathy who is admitted for sepsis, acute kidney injury, urinary tract infection, acute respiratory failure, electrolyte imbalances, infected sacral wound and bilateral pneumonia s/p Sepsis Acute respiratory failure with Hypoxia s/p Cardiovascular shock Infected sacral wound s/p debridement with surgery Generalized anasarca possible acute diastolic congestive heart failure Anemia Afib Bilateral pleural effusion Right and left lung atelectasis secondary to mucous plug s/p Proteus bacteremia s/p MRSA pneumonia s/p Urine tract infection Leukocytosis Acute kidney injury with vasomotor Nephropathy Acute Diarrhea ?C.diff- Test was not performed SFA occlusion - Not a candidate for surgery per Vascular Hyponatremia -ID, cardiology, CCM, surgery, vascular surgery, nephrology, surgery, WOCN consulted, appreciate recommendations -FAZAL, pneumonia, infected sacral wound, acute respiratory failure, leukocytosis, hypotension requiring vasopressor support -s/p Antibiotic therapy -10/26 tracheal aspirate with MRSA, 10/26 blood cultures x2 with Proteus mirabilis, 10/27 urine culture possible contaminant, 11/15: Trach aspirate positive for staph coccus aureus, 11/06 occult stool positive -On mechanical ventilation, wean as tolerated, VAP bundle, CPAP trials as tolerated -Wound care per nursing -Fentanyl IVP, PO oxycodone prn -Midodrine, amiodorone -Continue home carbamazepine and remoron -S/p IVF resuscitation -HIT panel negative -11/21/20 trach/PEG placement with surgery -s/p 5 units PRBC during stay -Not a candidate for vascularization per vascular -No systemic anticoagulation per cardiology -Trend CBC and BMP GI/DVT prophylaxis: Lovenox subq, SCDs to bilateral legs while in bed, PPI Dispo: LTACH Disposition: DC/TX-63 MEDICARE CERT LT Final Discharge Diagnosis (Prints w/discharge instructions): Sepsis, acute hypoxic respiratory failure, s/p Cardiovascular shock, Infected sacral wound s/p debridement with surgery. Generalized anasarca possible acute diastolic congestive heart failure, Anemia, Afib, Bilateral pleural effusion. Right and left lung atelectasis secondary to mucous plug, s/p Proteus bacteremia, s/p MRSA pneumonia. s/p Urine tract infection, Leukocytosis, Acute kidney injury with vasomotor Nephropathy, Acute Diarrhea ?C.diff- Test was not performed, SFA occlusion - Not a candidate for surgery per Vascular, Hyponatremia Time spent for discharge: 45 Core Measure Documentation - Palliative Care Palliative Care/ Comfort Measures: Not Applicable - Core Measures Any of the following diagnoses?: none Exam - Constitutional Vitals: Temp Pulse Resp BP Pulse Ox 98.3 F 87 24 129/80 93 12/03/20 12:00 12/03/20 15:07 12/03/20 15:07 12/03/20 15:07 12/03/20 15:07 General appearance: Present: no acute distress - EENT Eyes: Present: PERRL ENT: hearing intact, poor dentition - Neck Neck: Present: normal ROM - Respiratory Respiratory effort: normal Respiratory: bilateral: CTA - Cardiovascular Rhythm: regular Heart Sounds: Present: S1 & S2. Absent: systolic murmur, diastolic murmur - Extremities Extremities: no ischemia, pulses intact, pulses symmetrical, normal temperature, normal color Extremity abnormal: edema Peripheral Pulses: within normal limits - Abdominal General gastrointestinal: Present: soft, non-tender, non-distended, normal bowel sounds - Integumentary Integumentary: Present: warm, dry - Musculoskeletal Musculoskeletal: generalized weakness - Psychiatric Psychiatric: appropriate mood/affect, cooperative - Neurologic Neurologic: CNII-XII intact, no focal deficits, moves all extremities - Allied Health Allied health notes reviewed: nursing, RT, social work, case management Plan Activity: up only with assistance Diet: per dietitian instruction Wound: per wound nurse instructions Special Instructions: record daily BP diary, record blood sugar diary Follow up with: PRIMARY MD CONOR [Primary Care Provider] - 3-5 Days SHRUTHI VILLAGOMEZ MD [Staff Physician] - 7 Days TAURUS EDWARDS MD [Staff Physician] - 7 Days THEODORE HATCH MD [Staff Physician] - 7 Days
[2020-12-03] MEDS: ENOXAPARIN 40 MG/0.4 ML INJ SUB-Q SCH (21:52)
[2020-12-03] MEDS: fentaNYL 100 MCG/2 ML INJ IV PRN (21:56)
[2020-12-03] MEDS ORDERED: MIRTAZAPINE 15 MG TAB PO SCH (22:00)
[2020-12-04 05:14] LABS: Blood Urea Nitrogen 21 mg/dL (9-20); Calcium 7.7 mg/dL (8.4-10.2); Hemolysis Index 3
[2020-12-04 05:26] LABS: Hematocrit 22.3 % (35.5-45.6); Hemoglobin 7.3 gm/dl (11.8-15.2); Mean Corpuscular HGB Conc 33 % (32-34); Mean Corpuscular Volume 95 fl (84-94); Platelet Count 430 K/mm3 (140-440); Red Blood Count 2.34 M/mm3 (3.65-5.03); Red Cell Distribution Width 17.6 % (13.2-15.2)
[2020-12-04 05:40] LABS: BUN/Creatinine Ratio 53
[2020-12-04] MEDS: SODIUM HYPOCHLORITE, DAKIN'S 1/2 STRENGTH (0.25%) 473 ML TOPICAL SOLN TP SCH ×2 (07:24→11:36)
[2020-12-04] MEDS: METOPROLOL TARTRATE 25 MG TAB PO SCH ×2 (07:25→09:51)
[2020-12-04] MEDS: ALBUTEROL 2.5 MG/3 ML NEBU IH SCH (08:19)
[2020-12-04] MEDS: MIDODRINE 5 MG TAB PO SCH ×3 (09:51→15:31)
[2020-12-04] MEDS: FAMOTIDINE 20 MG TAB PO SCH (09:51)
[2020-12-04] MEDS: FUROSEMIDE 20 MG/2 ML INJ IV SCH (09:51)
[2020-12-04] MEDS: AMIODARONE 200 MG TAB PO SCH (09:51)
[2020-12-04] MEDS: carBAMazepine 200 MG TAB PO SCH ×2 (09:51→15:31)
[2020-12-04] MEDS: fentaNYL 100 MCG/2 ML INJ IV PRN (11:36)
--- NOTE | 2020-12-04 11:48 | Progress Note ---
Assessment and Plan Cultures: 10/26/2020 tracheal aspirate culture: MRSA 10/26/2020 blood culture: Proteus 10/27/2020 urine culture: Mixed hien 11/15/2020 sputum culture: MRSA A/P: 75-year-old male, residential resident with seizure disorder, hypertension, depression, hyperlipidemia, chronic encephalopathy was sent to the hospital with worsening mental status: #Septic shock: probably from pneumonia. Resolved #Acute hypoxic respiratory failure: on the vent, s/p trach. #Proteus bacteremia: multifactorial from infected sacral decubitus ulcer, bilateral pneumonia, UTI. S/P abx. #Acute diarrhea: ?C. difficile, improved on vancomycin p.o. Diarrhea improved, Cdiff test was not able to be done. #Necrotic, infected sacral decubitus ulcer: underwent debridement 10/29/2020, also noted to have brittle coccyx consistent with osteomyelitis. s/p abx. #UTI: UA with significant pyuria. Culture with mixed hien. S/P abx. #FAZAL: resolved. #PVD: SFA occlusion. Not a candidate for revascularization per vascular Recs: -Leucocytosis multifactorial including from ischemic feet/digits, large necrotic sacral wound. Monitor for fever, remains off pressors. Monitor off antibiotics for now. -Continue local wound care Stephania Starr MD, FACP [facility] ([facility] O: [phone] F: [phone] Subjective Date of service: 12/04/20 Principal diagnosis: Acute Resp Fail, Septic Shock, Sacral Ulcer, AF with RVR Interval history: No fever. Remains on the vent via trach. Awake. Objective - Exam Narrative Exam: Physical Exam: Constitutional: awake, on the vent Head, Ears, Nose: Normocephalic, atraumatic. External ears, nose normal Eyes: Conjunctivae/corneas clear. No icterus. No ptosis. Neck: trach Oral: limited Cardiovascular: S1, S2 + Respiratory: AE fair bilaterally and equal GI: Soft, bowel sounds +, PEG + Musculoskeletal: Anasarca. Bilateral lower extremities with wounds, ischemic digits, large necrotic sacral wound + Skin: No rash or abscess. Hem/Lymphatic: No palpable cervical or supraclavicular nodes. No lymphangitis Psych: no agitation Neurological: awake, on the vent via trach - Constitutional Vitals: Vital Signs Temp Pulse Resp BP Pulse Ox 98.0 F 107 H 22 112/77 98 12/04/20 08:00 12/04/20 09:51 12/04/20 11:36 12/04/20 09:51 12/04/20 09:00 Temperature -Last 24 Hours Temperature 98.0 F Temperature 97.7 F Temperature 98.0 F Temperature 99.2 F Temperature 99.3 F Temperature 98.3 F - Labs CBC & Chem 7: 12/04/20 04:41 12/04/20 04:41 Labs: Abnormal lab results 11/17/20 12/04/20 12/04/20 Range/Units 11:10 04:41 04:41 WBC 14.6 H (4.5-11.0) K/mm3 RBC 2.34 L (3.65-5.03) M/mm3 Hgb 7.3 L (11.8-15.2) gm/dl Hct 22.3 L (35.5-45.6) % MCV 95 H (84-94) fl RDW 17.6 H (13.2-15.2) % Sodium 135 L (137-145) mmol/L BUN 21 H (9-20) mg/dL Creatinine 0.4 L (0.8-1.3) mg/dL Glucose 110 H (75-100) mg/dL Calcium 7.7 L (8.4-10.2) mg/dL Crossmatch See Detail
--- NOTE | 2020-12-04 11:52 | Progress Note ---
Assessment and Plan 75 y/o male with acute respiratory failure secondary to sepsis from large sacral decub and likely urinary tract infection Stable for transfer to facility for further care. Continue daily PSV trials CCt 31 minutes. Subjective Date of service: 12/04/20 Principal diagnosis: Acute Resp Fail, Septic Shock, Sacral Ulcer, AF with RVR Interval history: POA is now holding the transfer. CM being notified. Clincially patient is stable. Objective Vital Signs - 12hr 12/03/20 12/04/20 12/04/20 23:57 00:00 00:31 Temperature 98.0 F Pulse Rate 82 88 94 H Pulse Rate [ Anterior Bilateral Throughout] Pulse Rate [ 87 From Monitor] Respiratory 22 17 Rate Respiratory Rate [Anterior Bilateral Throughout] Blood Pressure 105/66 113/66 113/66 O2 Sat by Pulse 98 98 94 Oximetry O2 Sat by Pulse Oximetry [ Assessment] 12/04/20 12/04/20 12/04/20 01:01 01:31 02:00 Temperature Pulse Rate 110 H 89 90 Pulse Rate [ Anterior Bilateral Throughout] Pulse Rate [ From Monitor] Respiratory 24 19 21 Rate Respiratory Rate [Anterior Bilateral Throughout] Blood Pressure 113/85 113/85 113/85 O2 Sat by Pulse 98 98 97 Oximetry O2 Sat by Pulse Oximetry [ Assessment] 12/04/20 12/04/20 12/04/20 02:31 02:40 03:00 Temperature Pulse Rate 93 H 85 Pulse Rate [ Anterior Bilateral Throughout] Pulse Rate [ From Monitor] Respiratory 18 16 Rate Respiratory Rate [Anterior Bilateral Throughout] Blood Pressure 113/69 108/62 O2 Sat by Pulse 97 99 Oximetry O2 Sat by Pulse 97 Oximetry [ Assessment] 12/04/20 12/04/20 12/04/20 03:31 04:00 04:10 Temperature 97.7 F Pulse Rate 90 90 101 H Pulse Rate [ Anterior Bilateral Throughout] Pulse Rate [ 97 H From Monitor] Respiratory 20 21 Rate Respiratory Rate [Anterior Bilateral Throughout] Blood Pressure 108/62 114/72 114/72 O2 Sat by Pulse 98 97 97 Oximetry O2 Sat by Pulse Oximetry [ Assessment] 12/04/20 12/04/20 12/04/20 04:31 05:01 05:31 Temperature Pulse Rate 85 92 H 99 H Pulse Rate [ Anterior Bilateral Throughout] Pulse Rate [ From Monitor] Respiratory 21 20 16 Rate Respiratory Rate [Anterior Bilateral Throughout] Blood Pressure 114/72 110/57 110/57 O2 Sat by Pulse 99 99 99 Oximetry O2 Sat by Pulse Oximetry [ Assessment] 12/04/20 12/04/20 12/04/20 06:00 06:31 07:00 Temperature Pulse Rate 93 H 91 H 100 H Pulse Rate [ Anterior Bilateral Throughout] Pulse Rate [ From Monitor] Respiratory 18 19 13 Rate Respiratory Rate [Anterior Bilateral Throughout] Blood Pressure 115/65 115/65 118/76 O2 Sat by Pulse 91 99 98 Oximetry O2 Sat by Pulse Oximetry [ Assessment] 12/04/20 12/04/20 12/04/20 07:31 08:00 08:19 Temperature 98.0 F Pulse Rate 94 H 119 H 115 H Pulse Rate [ 112 H Anterior Bilateral Throughout] Pulse Rate [ 107 H From Monitor] Respiratory 16 22 Rate Respiratory 20 Rate [Anterior Bilateral Throughout] Blood Pressure 118/76 119/81 119/81 O2 Sat by Pulse 93 91 93 Oximetry O2 Sat by Pulse 93 Oximetry [ Assessment] 12/04/20 12/04/20 12/04/20 08:31 09:00 09:51 Temperature Pulse Rate 95 H 113 H 107 H Pulse Rate [ Anterior Bilateral Throughout] Pulse Rate [ From Monitor] Respiratory 15 25 H Rate Respiratory Rate [Anterior Bilateral Throughout] Blood Pressure 119/81 112/77 112/77 O2 Sat by Pulse 92 98 Oximetry O2 Sat by Pulse Oximetry [ Assessment] 12/04/20 11:36 Temperature Pulse Rate Pulse Rate [ Anterior Bilateral Throughout] Pulse Rate [ From Monitor] Respiratory 22 Rate Respiratory Rate [Anterior Bilateral Throughout] Blood Pressure O2 Sat by Pulse Oximetry O2 Sat by Pulse Oximetry [ Assessment] Constitutional: comatose Eyes: non-icteric ENT: other (orally intubated and sedated.) Neck: supple Effort: normal Ascultation: Bilateral: clear, rhonchi Percussion: Bilateral: not dull Cardiovascular: regular rate and rhythm Gastrointestinal: normoactive bowel sounds, soft, non-tender Extremities: no cyanosis, cool, anasarca Neurologic: normal mental status, non-focal exam Psychiatric: mood appropriate, affect normal CBC and BMP: 12/04/20 04:41 12/04/20 04:41 ABG, PT/INR, D-dimer: ABG ABG pH 7.515 (7.320-7.450) H 11/28/20 03:56 POC ABG pCO2 38.5 mmHg (32.0-48.0) 11/28/20 03:56 ABG pCO2 43.4 mm Hg 11/19/20 Unknown POC ABG pO2 74.5 mmHg (83-108) L 11/28/20 03:56 ABG pO2 72.4 mm Hg (80.0-90.0) L 11/19/20 Unknown POC ABG HCO3 30.4 11/28/20 03:56 ABG O2 Saturation 95.8 (0-100) 11/28/20 03:56 PT/INR, D-dimer PT 14.7 Sec. (12.2-14.9) 11/19/20 06:36 INR 1.15 (0.87-1.13) H 11/19/20 06:36 Abnormal lab findings: Abnormal Labs 10/26/20 10/26/20 10/26/20 17:25 17:25 17:25 WBC 23.3 H RBC 3.10 L Hgb 9.6 L Hct 30.3 L MCV 98 H MCH MCHC RDW 17.4 H Plt Count 521 H Lymph % (Auto) [place] % (Auto) [place] # (Auto) Seg Neutrophils % Seg Neuts % (Manual) 78.0 H Lymphocytes % (Manual) 11.0 L Nucleated RBC % Seg Neutrophils # Seg Neutrophils # Man 18.2 H Lymphocytes # (Manual) Monocytes # (Manual) 1.4 H PT INR ABG pH POC ABG pCO2 POC ABG pO2 ABG pO2 ABG HCO3 ABG O2 Saturation ABG Base Excess ABG Hemoglobin ABG Oxyhemoglobin ABG Sodium ABG Potassium ABG Chloride ABG Glucose Oxyhemoglobin Carboxyhemoglobin Sodium 148 H Potassium Chloride 109.3 H Carbon Dioxide 19 L BUN 57 H Creatinine 1.5 H Glucose 151 H POC Glucose Lactic Acid 9.60 H* Calcium Phosphorus Magnesium Total Creatine Kinase Troponin T 0.062 H Total Protein Albumin 1.7 L Triglycerides 190 H LDL Cholesterol Direct 33 L HDL Cholesterol 18 L Arterial Blood Glucose Arterial Blood Ionized Calcium Urine pH Urine WBC (Auto) Vancomycin Trough Salicylates Acetaminophen Crossmatch 10/26/20 10/26/20 10/26/20 17:28 17:28 17:28 WBC RBC Hgb Hct MCV MCH MCHC RDW Plt Count Lymph % (Auto) [place] % (Auto) [place] # (Auto) Seg Neutrophils % Seg Neuts % (Manual) Lymphocytes % (Manual) Nucleated RBC % Seg Neutrophils # Seg Neutrophils # Man Lymphocytes # (Manual) Monocytes # (Manual) PT INR ABG pH POC ABG pCO2 POC ABG pO2 ABG pO2 ABG HCO3 ABG O2 Saturation ABG Base Excess ABG Hemoglobin ABG Oxyhemoglobin ABG Sodium ABG Potassium ABG Chloride ABG Glucose Oxyhemoglobin Carboxyhemoglobin Sodium Potassium Chloride Carbon Dioxide BUN Creatinine Glucose POC Glucose Lactic Acid Calcium Phosphorus Magnesium Total Creatine Kinase 31 L Troponin T Total Protein Albumin Triglycerides LDL Cholesterol Direct HDL Cholesterol Arterial Blood Glucose Arterial Blood Ionized Calcium Urine pH Urine WBC (Auto) Vancomycin Trough Salicylates < 0.3 L Acetaminophen 5.0 L Crossmatch 10/26/20 10/26/20 10/26/20 17:30 20:11 22:00 WBC RBC Hgb Hct MCV MCH MCHC RDW Plt Count Lymph % (Auto) [place] % (Auto) [place] # (Auto) Seg Neutrophils % Seg Neuts % (Manual) Lymphocytes % (Manual) Nucleated RBC % Seg Neutrophils # Seg Neutrophils # Man Lymphocytes # (Manual) Monocytes # (Manual) PT INR ABG pH 7.235 L POC ABG pCO2 POC ABG pO2 ABG pO2 312.4 H ABG HCO3 16.4 L ABG O2 Saturation 99.5 H ABG Base Excess -10.4 L ABG Hemoglobin 11.0 L ABG Oxyhemoglobin ABG Sodium ABG Potassium ABG Chloride ABG Glucose Oxyhemoglobin Carboxyhemoglobin Sodium Potassium Chloride Carbon Dioxide BUN Creatinine Glucose POC Glucose Lactic Acid 7.70 H* 6.40 H* Calcium Phosphorus Magnesium Total Creatine Kinase Troponin T Total Protein Albumin Triglycerides LDL Cholesterol Direct HDL Cholesterol Arterial Blood Glucose Arterial Blood Ionized Calcium Urine pH Urine WBC (Auto) Vancomycin Trough Salicylates Acetaminophen Crossmatch 10/27/20 10/27/20 10/27/20 03:25 03:30 04:00 WBC 20.3 H RBC 3.10 L Hgb 9.6 L Hct 30.6 L MCV 99 H MCH MCHC 31 L RDW 16.9 H Plt Count Lymph % (Auto) [place] % (Auto) [place] # (Auto) Seg Neutrophils % Seg Neuts % (Manual) Lymphocytes % (Manual) Nucleated RBC % Seg Neutrophils # Seg Neutrophils # Man 11.6 H Lymphocytes # (Manual) Monocytes # (Manual) PT INR ABG pH 7.218 L POC ABG pCO2 POC ABG pO2 62.9 L ABG pO2 ABG HCO3 ABG O2 Saturation ABG Base Excess ABG Hemoglobin 10.6 L ABG Oxyhemoglobin 86.6 L ABG Sodium ABG Potassium 4.8 H ABG Chloride 114.0 H ABG Glucose 116 H Oxyhemoglobin Carboxyhemoglobin 0.4 L Sodium Potassium Chloride 110.2 H Carbon Dioxide 17 L BUN 55 H Creatinine 1.5 H Glucose 109 H POC Glucose Lactic Acid Calcium 7.9 L Phosphorus Magnesium Total Creatine Kinase Troponin T Total Protein Albumin 1.3 L Triglycerides LDL Cholesterol Direct HDL Cholesterol Arterial Blood Glucose 116 H Arterial Blood Ionized Calcium Urine pH Urine WBC (Auto) Vancomycin Trough Salicylates Acetaminophen Crossmatch 10/27/20 10/28/20 10/28/20 Unknown 00:40 00:40 WBC 23.1 H RBC 2.42 L Hgb 7.5 L Hct 23.7 L D MCV 98 H MCH MCHC RDW 16.8 H Plt Count Lymph % (Auto) [place] % (Auto) [place] # (Auto) Seg Neutrophils % Seg Neuts % (Manual) Lymphocytes % (Manual) Nucleated RBC % Seg Neutrophils # Seg Neutrophils # Man Lymphocytes # (Manual) Monocytes # (Manual) PT INR ABG pH POC ABG pCO2 POC ABG pO2 ABG pO2 ABG HCO3 ABG O2 Saturation ABG Base Excess ABG Hemoglobin ABG Oxyhemoglobin ABG Sodium ABG Potassium ABG Chloride ABG Glucose Oxyhemoglobin Carboxyhemoglobin Sodium Potassium Chloride 111.4 H Carbon Dioxide 19 L BUN 49 H Creatinine Glucose POC Glucose Lactic Acid Calcium 7.3 L Phosphorus Magnesium 1.40 L Total Creatine Kinase Troponin T Total Protein 5.8 L Albumin 1.2 L Triglycerides LDL Cholesterol Direct HDL Cholesterol Arterial Blood Glucose Arterial Blood Ionized Calcium Urine pH 8.0 H Urine WBC (Auto) > 182.0 H Vancomycin Trough Salicylates Acetaminophen Crossmatch 10/28/20 10/28/20 10/28/20 03:30 05:36 05:36 WBC RBC Hgb Hct MCV MCH MCHC RDW Plt Count Lymph % (Auto) [place] % (Auto) [place] # (Auto) Seg Neutrophils % Seg Neuts % (Manual) Lymphocytes % (Manual) Nucleated RBC % Seg Neutrophils # Seg Neutrophils # Man Lymphocytes # (Manual) Monocytes # (Manual) PT INR ABG pH 7.175 L POC ABG pCO2 POC ABG pO2 71.5 L ABG pO2 ABG HCO3 ABG O2 Saturation ABG Base Excess ABG Hemoglobin 8.8 L ABG Oxyhemoglobin ABG Sodium ABG Potassium 4.7 H ABG Chloride 114.0 H ABG Glucose 100 H Oxyhemoglobin Carboxyhemoglobin Sodium Potassium Chloride 114.6 H Carbon Dioxide 15 L BUN 48 H Creatinine 1.4 H Glucose POC Glucose Lactic Acid 7.60 H* Calcium 7.7 L Phosphorus Magnesium Total Creatine Kinase Troponin T Total Protein Albumin Triglycerides LDL Cholesterol Direct HDL Cholesterol Arterial Blood Glucose 100 H Arterial Blood Ionized Calcium 4.4 L Urine pH Urine WBC (Auto) Vancomycin Trough Salicylates Acetaminophen Crossmatch 10/28/20 10/28/20 10/29/20 17:18 23:18 03:50 WBC RBC Hgb Hct MCV MCH MCHC RDW Plt Count Lymph % (Auto) [place] % (Auto) [place] # (Auto) Seg Neutrophils % Seg Neuts % (Manual) Lymphocytes % (Manual) Nucleated RBC % Seg Neutrophils # Seg Neutrophils # Man Lymphocytes # (Manual) Monocytes # (Manual) PT INR ABG pH POC ABG pCO2 30.0 L POC ABG pO2 ABG pO2 ABG HCO3 ABG O2 Saturation ABG Base Excess ABG Hemoglobin 8.1 L ABG Oxyhemoglobin ABG Sodium ABG Potassium ABG Chloride 113.0 H ABG Glucose 153 H Oxyhemoglobin Carboxyhemoglobin 0.4 L Sodium Potassium Chloride Carbon Dioxide BUN Creatinine Glucose POC Glucose 134 H 149 H Lactic Acid Calcium Phosphorus Magnesium Total Creatine Kinase Troponin T Total Protein Albumin Triglycerides LDL Cholesterol Direct HDL Cholesterol Arterial Blood Glucose 153 H Arterial Blood Ionized Calcium 4.1 L Urine pH Urine WBC (Auto) Vancomycin Trough Salicylates Acetaminophen Crossmatch 10/29/20 10/29/20 10/29/20 05:09 05:15 05:15 WBC 23.9 H RBC 2.66 L Hgb 8.3 L Hct 26.3 L MCV 99 H MCH MCHC RDW 17.5 H Plt Count Lymph % (Auto) [place] % (Auto) [place] # (Auto) Seg Neutrophils % Seg Neuts % (Manual) Lymphocytes % (Manual) Nucleated RBC % Seg Neutrophils # Seg Neutrophils # Man Lymphocytes # (Manual) Monocytes # (Manual) PT INR ABG pH POC ABG pCO2 POC ABG pO2 ABG pO2 ABG HCO3 ABG O2 Saturation ABG Base Excess ABG Hemoglobin ABG Oxyhemoglobin ABG Sodium ABG Potassium ABG Chloride ABG Glucose Oxyhemoglobin Carboxyhemoglobin Sodium Potassium Chloride 110.4 H Carbon Dioxide 15 L BUN 40 H Creatinine Glucose 140 H POC Glucose 123 H Lactic Acid Calcium 7.0 L Phosphorus Magnesium Total Creatine Kinase Troponin T Total Protein 6.0 L Albumin 1.0 L Triglycerides LDL Cholesterol Direct HDL Cholesterol Arterial Blood Glucose Arterial Blood Ionized Calcium Urine pH Urine WBC (Auto) Vancomycin Trough Salicylates Acetaminophen Crossmatch 10/29/20 10/29/20 10/29/20 05:15 10:37 11:41 WBC RBC Hgb Hct MCV MCH MCHC RDW Plt Count Lymph % (Auto) [place] % (Auto) [place] # (Auto) Seg Neutrophils % Seg Neuts % (Manual) Lymphocytes % (Manual) Nucleated RBC % Seg Neutrophils # Seg Neutrophils # Man Lymphocytes # (Manual) Monocytes # (Manual) PT INR ABG pH POC ABG pCO2 POC ABG pO2 ABG pO2 ABG HCO3 ABG O2 Saturation ABG Base Excess ABG Hemoglobin ABG Oxyhemoglobin ABG Sodium ABG Potassium ABG Chloride ABG Glucose Oxyhemoglobin Carboxyhemoglobin Sodium Potassium Chloride Carbon Dioxide BUN Creatinine Glucose POC Glucose 121 H Lactic Acid 9.90 H* 10.90 H* Calcium Phosphorus Magnesium Total Creatine Kinase Troponin T Total Protein Albumin Triglycerides LDL Cholesterol Direct HDL Cholesterol Arterial Blood Glucose Arterial Blood Ionized Calcium Urine pH Urine WBC (Auto) Vancomycin Trough Salicylates Acetaminophen Crossmatch 10/29/20 10/29/20 10/30/20 15:56 23:24 02:26 WBC RBC Hgb Hct MCV MCH MCHC RDW Plt Count Lymph % (Auto) [place] % (Auto) [place] # (Auto) Seg Neutrophils % Seg Neuts % (Manual) Lymphocytes % (Manual) Nucleated RBC % Seg Neutrophils # Seg Neutrophils # Man Lymphocytes # (Manual) Monocytes # (Manual) PT INR ABG pH POC ABG pCO2 POC ABG pO2 76.6 L ABG pO2 ABG HCO3 ABG O2 Saturation ABG Base Excess ABG Hemoglobin 6.4 L ABG Oxyhemoglobin 93.8 L ABG Sodium ABG Potassium 2.9 L ABG Chloride 110.0 H ABG Glucose 212 H Oxyhemoglobin Carboxyhemoglobin Sodium Potassium Chloride Carbon Dioxide BUN Creatinine Glucose POC Glucose 132 H 175 H Lactic Acid Calcium Phosphorus Magnesium Total Creatine Kinase Troponin T Total Protein Albumin Triglycerides LDL Cholesterol Direct HDL Cholesterol Arterial Blood Glucose 212 H Arterial Blood Ionized Calcium 3.9 L Urine pH Urine WBC (Auto) Vancomycin Trough Salicylates Acetaminophen Crossmatch 10/30/20 10/30/20 10/30/20 04:54 04:54 05:14 WBC 20.7 H RBC 2.28 L Hgb 7.0 L Hct 21.9 L MCV 96 H MCH MCHC RDW 17.0 H Plt Count 90 L Lymph % (Auto) [place] % (Auto) [place] # (Auto) Seg Neutrophils % Seg Neuts % (Manual) Lymphocytes % (Manual) Nucleated RBC % Seg Neutrophils # Seg Neutrophils # Man Lymphocytes # (Manual) Monocytes # (Manual) PT INR ABG pH POC ABG pCO2 POC ABG pO2 ABG pO2 ABG HCO3 ABG O2 Saturation ABG Base Excess ABG Hemoglobin ABG Oxyhemoglobin ABG Sodium ABG Potassium ABG Chloride ABG Glucose Oxyhemoglobin Carboxyhemoglobin Sodium Potassium 3.0 L D Chloride Carbon Dioxide BUN 28 H Creatinine 0.6 L Glucose 214 H POC Glucose 187 H Lactic Acid Calcium 6.2 L Phosphorus Magnesium Total Creatine Kinase Troponin T Total Protein Albumin Triglycerides LDL Cholesterol Direct HDL Cholesterol Arterial Blood Glucose Arterial Blood Ionized Calcium Urine pH Urine WBC (Auto) Vancomycin Trough Salicylates Acetaminophen Crossmatch 10/30/20 10/30/20 10/30/20 09:30 11:40 17:51 WBC RBC Hgb Hct MCV MCH MCHC RDW Plt Count Lymph % (Auto) [place] % (Auto) [place] # (Auto) Seg Neutrophils % Seg Neuts % (Manual) Lymphocytes % (Manual) Nucleated RBC % Seg Neutrophils # Seg Neutrophils # Man Lymphocytes # (Manual) Monocytes # (Manual) PT INR ABG pH POC ABG pCO2 POC ABG pO2 ABG pO2 ABG HCO3 ABG O2 Saturation ABG Base Excess ABG Hemoglobin ABG Oxyhemoglobin ABG Sodium ABG Potassium ABG Chloride ABG Glucose Oxyhemoglobin Carboxyhemoglobin Sodium Potassium Chloride Carbon Dioxide BUN Creatinine Glucose POC Glucose 183 H 136 H Lactic Acid Calcium Phosphorus Magnesium Total Creatine Kinase Troponin T Total Protein Albumin Triglycerides LDL Cholesterol Direct HDL Cholesterol Arterial Blood Glucose Arterial Blood Ionized Calcium Urine pH Urine WBC (Auto) Vancomycin Trough Salicylates Acetaminophen Crossmatch See Detail 10/30/20 10/30/20 10/30/20 18:53 23:25 Unknown WBC RBC Hgb Hct MCV MCH MCHC RDW Plt Count Lymph % (Auto) [place] % (Auto) [place] # (Auto) Seg Neutrophils % Seg Neuts % (Manual) Lymphocytes % (Manual) Nucleated RBC % Seg Neutrophils # Seg Neutrophils # Man Lymphocytes # (Manual) Monocytes # (Manual) PT INR ABG pH POC ABG pCO2 POC ABG pO2 ABG pO2 ABG HCO3 ABG O2 Saturation ABG Base Excess ABG Hemoglobin ABG Oxyhemoglobin ABG Sodium ABG Potassium ABG Chloride ABG Glucose Oxyhemoglobin Carboxyhemoglobin Sodium Potassium Chloride Carbon Dioxide BUN Creatinine Glucose POC Glucose 130 H Lactic Acid Calcium Phosphorus Magnesium Total Creatine Kinase Troponin T Total Protein Albumin Triglycerides LDL Cholesterol Direct HDL Cholesterol Arterial Blood Glucose Arterial Blood Ionized Calcium Urine pH Urine WBC (Auto) Vancomycin Trough 21.4 H 22.0 H Salicylates Acetaminophen Crossmatch 10/30/20 10/31/20 10/31/20 Unknown 02:54 03:42 WBC 21.1 H 23.0 H RBC 2.36 L Hgb 7.3 L 11.4 L D Hct 22.7 L 34.1 L D MCV 96 H MCH MCHC RDW 17.1 H 16.2 H Plt Count 73 L 33 L Lymph % (Auto) [place] % (Auto) [place] # (Auto) Seg Neutrophils % Seg Neuts % (Manual) Lymphocytes % (Manual) Nucleated RBC % Seg Neutrophils # Seg Neutrophils # Man Lymphocytes # (Manual) Monocytes # (Manual) PT INR ABG pH 7.517 H POC ABG pCO2 25.7 L POC ABG pO2 52.3 L ABG pO2 ABG HCO3 ABG O2 Saturation ABG Base Excess ABG Hemoglobin ABG Oxyhemoglobin 90.8 L ABG Sodium ABG Potassium ABG Chloride 109.0 H ABG Glucose 147 H Oxyhemoglobin Carboxyhemoglobin Sodium Potassium Chloride Carbon Dioxide BUN Creatinine Glucose POC Glucose Lactic Acid Calcium Phosphorus Magnesium Total Creatine Kinase Troponin T Total Protein Albumin Triglycerides LDL Cholesterol Direct HDL Cholesterol Arterial Blood Glucose 147 H Arterial Blood Ionized Calcium 4.0 L Urine pH Urine WBC (Auto) Vancomycin Trough Salicylates Acetaminophen Crossmatch 10/31/20 10/31/20 10/31/20 04:37 04:37 05:08 WBC 21.7 H RBC Hgb Hct MCV MCH MCHC RDW 16.1 H Plt Count 39 L Lymph % (Auto) [place] % (Auto) [place] # (Auto) Seg Neutrophils % Seg Neuts % (Manual) Lymphocytes % (Manual) Nucleated RBC % Seg Neutrophils # Seg Neutrophils # Man Lymphocytes # (Manual) Monocytes # (Manual) PT INR ABG pH POC ABG pCO2 POC ABG pO2 ABG pO2 ABG HCO3 ABG O2 Saturation ABG Base Excess ABG Hemoglobin ABG Oxyhemoglobin ABG Sodium ABG Potassium ABG Chloride ABG Glucose Oxyhemoglobin Carboxyhemoglobin Sodium Potassium Chloride 108.4 H Carbon Dioxide BUN 25 H Creatinine 0.5 L Glucose 140 H POC Glucose 140 H Lactic Acid Calcium 6.1 L Phosphorus Magnesium 1.50 L Total Creatine Kinase Troponin T Total Protein Albumin Triglycerides LDL Cholesterol Direct HDL Cholesterol Arterial Blood Glucose Arterial Blood Ionized Calcium Urine pH Urine WBC (Auto) Vancomycin Trough Salicylates Acetaminophen Crossmatch 10/31/20 10/31/20 10/31/20 11:12 18:50 23:21 WBC RBC Hgb Hct MCV MCH MCHC RDW Plt Count Lymph % (Auto) [place] % (Auto) [place] # (Auto) Seg Neutrophils % Seg Neuts % (Manual) Lymphocytes % (Manual) Nucleated RBC % Seg Neutrophils # Seg Neutrophils # Man Lymphocytes # (Manual) Monocytes # (Manual) PT INR ABG pH POC ABG pCO2 POC ABG pO2 ABG pO2 ABG HCO3 ABG O2 Saturation ABG Base Excess ABG Hemoglobin ABG Oxyhemoglobin ABG Sodium ABG Potassium ABG Chloride ABG Glucose Oxyhemoglobin Carboxyhemoglobin Sodium Potassium Chloride Carbon Dioxide BUN Creatinine Glucose POC Glucose 125 H 142 H 127 H Lactic Acid Calcium Phosphorus Magnesium Total Creatine Kinase Troponin T Total Protein Albumin Triglycerides LDL Cholesterol Direct HDL Cholesterol Arterial Blood Glucose Arterial Blood Ionized Calcium Urine pH Urine WBC (Auto) Vancomycin Trough Salicylates Acetaminophen Crossmatch 10/31/20 11/01/20 11/01/20 Unknown 03:40 04:21 WBC RBC Hgb Hct MCV MCH MCHC RDW Plt Count Lymph % (Auto) [place] % (Auto) [place] # (Auto) Seg Neutrophils % Seg Neuts % (Manual) Lymphocytes % (Manual) Nucleated RBC % Seg Neutrophils # Seg Neutrophils # Man Lymphocytes # (Manual) Monocytes # (Manual) PT INR ABG pH 7.489 H POC ABG pCO2 POC ABG pO2 ABG pO2 77.2 L ABG HCO3 ABG O2 Saturation ABG Base Excess ABG Hemoglobin 7.1 L ABG Oxyhemoglobin ABG Sodium ABG Potassium ABG Chloride ABG Glucose Oxyhemoglobin Carboxyhemoglobin Sodium Potassium 3.1 L Chloride 107.1 H Carbon Dioxide BUN 25 H Creatinine 0.5 L Glucose 148 H POC Glucose Lactic Acid 4.30 H* Calcium 6.0 L Phosphorus Magnesium Total Creatine Kinase Troponin T Total Protein Albumin Triglycerides LDL Cholesterol Direct HDL Cholesterol Arterial Blood Glucose Arterial Blood Ionized Calcium Urine pH Urine WBC (Auto) Vancomycin Trough Salicylates Acetaminophen Crossmatch 11/01/20 11/01/20 11/01/20 05:13 11:42 17:38 WBC RBC Hgb Hct MCV MCH MCHC RDW Plt Count Lymph % (Auto) [place] % (Auto) [place] # (Auto) Seg Neutrophils % Seg Neuts % (Manual) Lymphocytes % (Manual) Nucleated RBC % Seg Neutrophils # Seg Neutrophils # Man Lymphocytes # (Manual) Monocytes # (Manual) PT INR ABG pH POC ABG pCO2 POC ABG pO2 ABG pO2 ABG HCO3 ABG O2 Saturation ABG Base Excess ABG Hemoglobin ABG Oxyhemoglobin ABG Sodium ABG Potassium ABG Chloride ABG Glucose Oxyhemoglobin Carboxyhemoglobin Sodium Potassium Chloride Carbon Dioxide BUN Creatinine Glucose POC Glucose 139 H 139 H 161 H Lactic Acid Calcium Phosphorus Magnesium Total Creatine Kinase Troponin T Total Protein Albumin Triglycerides LDL Cholesterol Direct HDL Cholesterol Arterial Blood Glucose Arterial Blood Ionized Calcium Urine pH Urine WBC (Auto) Vancomycin Trough Salicylates Acetaminophen Crossmatch 11/01/20 11/01/20 11/02/20 23:20 Unknown 04:30 WBC 18.2 H RBC 3.27 L Hgb 9.9 L Hct 30.1 L D MCV MCH MCHC RDW 15.7 H Plt Count 34 L Lymph % (Auto) [place] % (Auto) [place] # (Auto) Seg Neutrophils % Seg Neuts % (Manual) Lymphocytes % (Manual) Nucleated RBC % Seg Neutrophils # Seg Neutrophils # Man Lymphocytes # (Manual) Monocytes # (Manual) PT INR ABG pH 7.456 H POC ABG pCO2 POC ABG pO2 ABG pO2 ABG HCO3 ABG O2 Saturation ABG Base Excess ABG Hemoglobin 9.2 L ABG Oxyhemoglobin ABG Sodium ABG Potassium ABG Chloride ABG Glucose Oxyhemoglobin Carboxyhemoglobin Sodium Potassium Chloride Carbon Dioxide BUN Creatinine Glucose POC Glucose 168 H Lactic Acid Calcium Phosphorus Magnesium Total Creatine Kinase Troponin T Total Protein Albumin Triglycerides LDL Cholesterol Direct HDL Cholesterol Arterial Blood Glucose Arterial Blood Ionized Calcium Urine pH Urine WBC (Auto) Vancomycin Trough Salicylates Acetaminophen Crossmatch 11/02/20 11/02/20 11/02/20 06:29 08:40 08:40 WBC 16.6 H RBC 2.87 L Hgb 8.8 L Hct 26.6 L MCV MCH MCHC RDW 15.8 H Plt Count 30 L Lymph % (Auto) [place] % (Auto) [place] # (Auto) Seg Neutrophils % Seg Neuts % (Manual) 97.0 H Lymphocytes % (Manual) 2.0 L Nucleated RBC % 1.0 H Seg Neutrophils # Seg Neutrophils # Man 16.1 H Lymphocytes # (Manual) 0.3 L Monocytes # (Manual) PT INR ABG pH POC ABG pCO2 POC ABG pO2 ABG pO2 ABG HCO3 ABG O2 Saturation ABG Base Excess ABG Hemoglobin ABG Oxyhemoglobin ABG Sodium ABG Potassium ABG Chloride ABG Glucose Oxyhemoglobin Carboxyhemoglobin Sodium Potassium 2.4 L* D Chloride 110.2 H Carbon Dioxide BUN 23 H Creatinine 0.4 L Glucose 154 H POC Glucose 131 H Lactic Acid Calcium 6.1 L Phosphorus Magnesium 1.50 L Total Creatine Kinase Troponin T Total Protein Albumin Triglycerides LDL Cholesterol Direct HDL Cholesterol Arterial Blood Glucose Arterial Blood Ionized Calcium Urine pH Urine WBC (Auto) Vancomycin Trough Salicylates Acetaminophen Crossmatch 11/02/20 11/02/20 11/02/20 13:17 17:25 18:05 WBC RBC Hgb Hct MCV MCH MCHC RDW Plt Count Lymph % (Auto) [place] % (Auto) [place] # (Auto) Seg Neutrophils % Seg Neuts % (Manual) Lymphocytes % (Manual) Nucleated RBC % Seg Neutrophils # Seg Neutrophils # Man Lymphocytes # (Manual) Monocytes # (Manual) PT INR ABG pH POC ABG pCO2 POC ABG pO2 ABG pO2 ABG HCO3 ABG O2 Saturation ABG Base Excess ABG Hemoglobin ABG Oxyhemoglobin ABG Sodium ABG Potassium ABG Chloride ABG Glucose Oxyhemoglobin Carboxyhemoglobin Sodium Potassium 3.1 L D Chloride Carbon Dioxide BUN Creatinine Glucose POC Glucose 134 H 140 H Lactic Acid Calcium Phosphorus Magnesium Total Creatine Kinase Troponin T Total Protein Albumin Triglycerides LDL Cholesterol Direct HDL Cholesterol Arterial Blood Glucose Arterial Blood Ionized Calcium Urine pH Urine WBC (Auto) Vancomycin Trough Salicylates Acetaminophen Crossmatch 11/02/20 11/03/20 11/03/20 23:36 04:15 05:07 WBC RBC Hgb Hct MCV MCH MCHC RDW Plt Count Lymph % (Auto) [place] % (Auto) [place] # (Auto) Seg Neutrophils % Seg Neuts % (Manual) Lymphocytes % (Manual) Nucleated RBC % Seg Neutrophils # Seg Neutrophils # Man Lymphocytes # (Manual) Monocytes # (Manual) PT INR ABG pH POC ABG pCO2 POC ABG pO2 ABG pO2 ABG HCO3 ABG O2 Saturation ABG Base Excess ABG Hemoglobin ABG Oxyhemoglobin ABG Sodium ABG Potassium ABG Chloride ABG Glucose Oxyhemoglobin Carboxyhemoglobin Sodium Potassium 3.0 L Chloride 111.8 H Carbon Dioxide BUN 24 H Creatinine 0.3 L Glucose 141 H POC Glucose 127 H 156 H Lactic Acid Calcium 5.8 L* Phosphorus Magnesium 1.60 L Total Creatine Kinase Troponin T Total Protein Albumin Triglycerides LDL Cholesterol Direct HDL Cholesterol Arterial Blood Glucose Arterial Blood Ionized Calcium Urine pH Urine WBC (Auto) Vancomycin Trough Salicylates Acetaminophen Crossmatch 11/03/20 11/03/20 11/04/20 11:14 17:31 00:17 WBC RBC Hgb Hct MCV MCH MCHC RDW Plt Count Lymph % (Auto) [place] % (Auto) [place] # (Auto) Seg Neutrophils % Seg Neuts % (Manual) Lymphocytes % (Manual) Nucleated RBC % Seg Neutrophils # Seg Neutrophils # Man Lymphocytes # (Manual) Monocytes # (Manual) PT INR ABG pH POC ABG pCO2 POC ABG pO2 ABG pO2 ABG HCO3 ABG O2 Saturation ABG Base Excess ABG Hemoglobin ABG Oxyhemoglobin ABG Sodium ABG Potassium ABG Chloride ABG Glucose Oxyhemoglobin Carboxyhemoglobin Sodium Potassium Chloride Carbon Dioxide BUN Creatinine Glucose POC Glucose 137 H 151 H 156 H Lactic Acid Calcium Phosphorus Magnesium Total Creatine Kinase Troponin T Total Protein Albumin Triglycerides LDL Cholesterol Direct HDL Cholesterol Arterial Blood Glucose Arterial Blood Ionized Calcium Urine pH Urine WBC (Auto) Vancomycin Trough Salicylates Acetaminophen Crossmatch 11/04/20 11/04/20 11/04/20 05:34 05:34 11:16 WBC 21.9 H RBC 2.67 L Hgb 8.2 L Hct 24.8 L MCV MCH MCHC RDW 15.6 H Plt Count 48 L Lymph % (Auto) [place] % (Auto) [place] # (Auto) Seg Neutrophils % Seg Neuts % (Manual) Lymphocytes % (Manual) Nucleated RBC % Seg Neutrophils # Seg Neutrophils # Man Lymphocytes # (Manual) Monocytes # (Manual) PT INR ABG pH POC ABG pCO2 POC ABG pO2 ABG pO2 ABG HCO3 ABG O2 Saturation ABG Base Excess ABG Hemoglobin ABG Oxyhemoglobin ABG Sodium ABG Potassium ABG Chloride ABG Glucose Oxyhemoglobin Carboxyhemoglobin Sodium 146 H Potassium Chloride 114.6 H Carbon Dioxide BUN 29 H Creatinine 0.3 L Glucose 173 H POC Glucose 156 H Lactic Acid Calcium 5.7 L* Phosphorus Magnesium Total Creatine Kinase Troponin T Total Protein Albumin Triglycerides LDL Cholesterol Direct HDL Cholesterol Arterial Blood Glucose Arterial Blood Ionized Calcium Urine pH Urine WBC (Auto) Vancomycin Trough Salicylates Acetaminophen Crossmatch 11/04/20 11/04/20 11/04/20 11:42 17:18 23:12 WBC RBC Hgb Hct MCV MCH MCHC RDW Plt Count Lymph % (Auto) [place] % (Auto) [place] # (Auto) Seg Neutrophils % Seg Neuts % (Manual) Lymphocytes % (Manual) Nucleated RBC % Seg Neutrophils # Seg Neutrophils # Man Lymphocytes # (Manual) Monocytes # (Manual) PT INR ABG pH 7.525 H POC ABG pCO2 28.9 L POC ABG pO2 64.3 L ABG pO2 ABG HCO3 ABG O2 Saturation ABG Base Excess ABG Hemoglobin 8.2 L ABG Oxyhemoglobin ABG Sodium ABG Potassium 3.3 L ABG Chloride 115.0 H ABG Glucose 165 H Oxyhemoglobin Carboxyhemoglobin Sodium Potassium Chloride Carbon Dioxide BUN Creatinine Glucose POC Glucose 144 H 155 H Lactic Acid Calcium Phosphorus Magnesium Total Creatine Kinase Troponin T Total Protein Albumin Triglycerides LDL Cholesterol Direct HDL Cholesterol Arterial Blood Glucose 165 H Arterial Blood Ionized Calcium 4.0 L Urine pH Urine WBC (Auto) Vancomycin Trough Salicylates Acetaminophen Crossmatch 11/05/20 11/05/20 11/05/20 04:48 04:48 05:57 WBC 17.4 H RBC 2.49 L Hgb 7.8 L Hct 23.5 L MCV MCH MCHC RDW 16.0 H Plt Count 69 L Lymph % (Auto) [place] % (Auto) [place] # (Auto) Seg Neutrophils % Seg Neuts % (Manual) Lymphocytes % (Manual) Nucleated RBC % Seg Neutrophils # Seg Neutrophils # Man Lymphocytes # (Manual) Monocytes # (Manual) PT INR ABG pH POC ABG pCO2 POC ABG pO2 ABG pO2 ABG HCO3 ABG O2 Saturation ABG Base Excess ABG Hemoglobin ABG Oxyhemoglobin ABG Sodium ABG Potassium ABG Chloride ABG Glucose Oxyhemoglobin Carboxyhemoglobin Sodium 147 H Potassium 3.5 L Chloride 115.4 H Carbon Dioxide BUN 34 H Creatinine 0.3 L Glucose 154 H POC Glucose 146 H Lactic Acid Calcium 6.1 L Phosphorus 2.00 L Magnesium Total Creatine Kinase Troponin T Total Protein Albumin Triglycerides LDL Cholesterol Direct HDL Cholesterol Arterial Blood Glucose Arterial Blood Ionized Calcium Urine pH Urine WBC (Auto) Vancomycin Trough Salicylates Acetaminophen Crossmatch 11/05/20 11/05/20 11/05/20 11:33 17:52 23:37 WBC RBC Hgb Hct MCV MCH MCHC RDW Plt Count Lymph % (Auto) [place] % (Auto) [place] # (Auto) Seg Neutrophils % Seg Neuts % (Manual) Lymphocytes % (Manual) Nucleated RBC % Seg Neutrophils # Seg Neutrophils # Man Lymphocytes # (Manual) Monocytes # (Manual) PT INR ABG pH POC ABG pCO2 POC ABG pO2 ABG pO2 ABG HCO3 ABG O2 Saturation ABG Base Excess ABG Hemoglobin ABG Oxyhemoglobin ABG Sodium ABG Potassium ABG Chloride ABG Glucose Oxyhemoglobin Carboxyhemoglobin Sodium Potassium Chloride Carbon Dioxide BUN Creatinine Glucose POC Glucose 144 H 136 H 151 H Lactic Acid Calcium Phosphorus Magnesium Total Creatine Kinase Troponin T Total Protein Albumin Triglycerides LDL Cholesterol Direct HDL Cholesterol Arterial Blood Glucose Arterial Blood Ionized Calcium Urine pH Urine WBC (Auto) Vancomycin Trough Salicylates Acetaminophen Crossmatch 11/06/20 11/06/20 11/06/20 05:36 06:45 06:45 WBC 15.0 H RBC 2.33 L Hgb 7.2 L Hct 22.1 L MCV 95 H MCH MCHC RDW 16.2 H Plt Count 103 L Lymph % (Auto) [place] % (Auto) [place] # (Auto) Seg Neutrophils % Seg Neuts % (Manual) Lymphocytes % (Manual) Nucleated RBC % Seg Neutrophils # Seg Neutrophils # Man Lymphocytes # (Manual) Monocytes # (Manual) PT INR ABG pH POC ABG pCO2 POC ABG pO2 ABG pO2 ABG HCO3 ABG O2 Saturation ABG Base Excess ABG Hemoglobin ABG Oxyhemoglobin ABG Sodium ABG Potassium ABG Chloride ABG Glucose Oxyhemoglobin Carboxyhemoglobin Sodium 148 H Potassium Chloride 118.2 H Carbon Dioxide BUN 32 H Creatinine 0.4 L Glucose 153 H POC Glucose 140 H Lactic Acid Calcium 6.4 L Phosphorus 0.90 L* D Magnesium Total Creatine Kinase Troponin T Total Protein 5.0 L Albumin 1.4 L Triglycerides LDL Cholesterol Direct HDL Cholesterol Arterial Blood Glucose Arterial Blood Ionized Calcium Urine pH Urine WBC (Auto) Vancomycin Trough Salicylates Acetaminophen Crossmatch 11/06/20 11/06/20 11/06/20 11:32 17:37 23:19 WBC RBC Hgb Hct MCV MCH MCHC RDW Plt Count Lymph % (Auto) [place] % (Auto) [place] # (Auto) Seg Neutrophils % Seg Neuts % (Manual) Lymphocytes % (Manual) Nucleated RBC % Seg Neutrophils # Seg Neutrophils # Man Lymphocytes # (Manual) Monocytes # (Manual) PT INR ABG pH POC ABG pCO2 POC ABG pO2 ABG pO2 ABG HCO3 ABG O2 Saturation ABG Base Excess ABG Hemoglobin ABG Oxyhemoglobin ABG Sodium ABG Potassium ABG Chloride ABG Glucose Oxyhemoglobin Carboxyhemoglobin Sodium Potassium Chloride Carbon Dioxide BUN Creatinine Glucose POC Glucose 132 H 133 H 145 H Lactic Acid Calcium Phosphorus Magnesium Total Creatine Kinase Troponin T Total Protein Albumin Triglycerides LDL Cholesterol Direct HDL Cholesterol Arterial Blood Glucose Arterial Blood Ionized Calcium Urine pH Urine WBC (Auto) Vancomycin Trough Salicylates Acetaminophen Crossmatch 11/07/20 11/07/20 11/07/20 12:55 16:45 16:45 WBC 12.0 H RBC 3.63 L Hgb 11.4 L D Hct MCV 104 H MCH MCHC 30 L RDW 18.0 H Plt Count 133 L Lymph % (Auto) [place] % (Auto) [place] # (Auto) Seg Neutrophils % Seg Neuts % (Manual) Lymphocytes % (Manual) Nucleated RBC % Seg Neutrophils # Seg Neutrophils # Man Lymphocytes # (Manual) Monocytes # (Manual) PT INR ABG pH POC ABG pCO2 POC ABG pO2 ABG pO2 ABG HCO3 ABG O2 Saturation ABG Base Excess ABG Hemoglobin 7.7 L ABG Oxyhemoglobin ABG Sodium ABG Potassium ABG Chloride ABG Glucose Oxyhemoglobin 94.9 L Carboxyhemoglobin Sodium 149 H Potassium Chloride 119.8 H Carbon Dioxide BUN 31 H Creatinine 0.4 L Glucose 130 H POC Glucose Lactic Acid Calcium 6.5 L Phosphorus Magnesium Total Creatine Kinase Troponin T Total Protein Albumin Triglycerides LDL Cholesterol Direct HDL Cholesterol Arterial Blood Glucose Arterial Blood Ionized Calcium Urine pH Urine WBC (Auto) Vancomycin Trough Salicylates Acetaminophen Crossmatch 11/07/20 11/08/20 11/08/20 17:23 00:12 06:11 WBC RBC Hgb Hct MCV MCH MCHC RDW Plt Count Lymph % (Auto) [place] % (Auto) [place] # (Auto) Seg Neutrophils % Seg Neuts % (Manual) Lymphocytes % (Manual) Nucleated RBC % Seg Neutrophils # Seg Neutrophils # Man Lymphocytes # (Manual) Monocytes # (Manual) PT INR ABG pH POC ABG pCO2 POC ABG pO2 ABG pO2 ABG HCO3 ABG O2 Saturation ABG Base Excess ABG Hemoglobin ABG Oxyhemoglobin ABG Sodium ABG Potassium ABG Chloride ABG Glucose Oxyhemoglobin Carboxyhemoglobin Sodium Potassium Chloride Carbon Dioxide BUN Creatinine Glucose POC Glucose 115 H 129 H 109 H Lactic Acid Calcium Phosphorus Magnesium Total Creatine Kinase Troponin T Total Protein Albumin Triglycerides LDL Cholesterol Direct HDL Cholesterol Arterial Blood Glucose Arterial Blood Ionized Calcium Urine pH Urine WBC (Auto) Vancomycin Trough Salicylates Acetaminophen Crossmatch 11/08/20 11/08/20 11/08/20 17:36 23:49 23:58 WBC RBC Hgb Hct MCV MCH MCHC RDW Plt Count Lymph % (Auto) [place] % (Auto) [place] # (Auto) Seg Neutrophils % Seg Neuts % (Manual) Lymphocytes % (Manual) Nucleated RBC % Seg Neutrophils # Seg Neutrophils # Man Lymphocytes # (Manual) Monocytes # (Manual) PT INR ABG pH POC ABG pCO2 POC ABG pO2 ABG pO2 ABG HCO3 ABG O2 Saturation ABG Base Excess ABG Hemoglobin ABG Oxyhemoglobin ABG Sodium ABG Potassium ABG Chloride ABG Glucose Oxyhemoglobin Carboxyhemoglobin Sodium Potassium Chloride Carbon Dioxide BUN Creatinine Glucose 138 H POC Glucose 38 L 36 L Lactic Acid Calcium Phosphorus Magnesium Total Creatine Kinase Troponin T Total Protein Albumin Triglycerides LDL Cholesterol Direct HDL Cholesterol Arterial Blood Glucose Arterial Blood Ionized Calcium Urine pH Urine WBC (Auto) Vancomycin Trough Salicylates Acetaminophen Crossmatch 11/09/20 11/09/20 11/09/20 05:33 06:00 06:00 WBC 13.1 H RBC 2.35 L Hgb 7.6 L D Hct 22.9 L D MCV 97 H MCH MCHC RDW 16.8 H Plt Count Lymph % (Auto) 9.1 L [place] % (Auto) [place] # (Auto) Seg Neutrophils % 84.8 H Seg Neuts % (Manual) Lymphocytes % (Manual) Nucleated RBC % Seg Neutrophils # 11.1 H Seg Neutrophils # Man Lymphocytes # (Manual) Monocytes # (Manual) PT INR ABG pH POC ABG pCO2 POC ABG pO2 ABG pO2 ABG HCO3 ABG O2 Saturation ABG Base Excess ABG Hemoglobin ABG Oxyhemoglobin ABG Sodium ABG Potassium ABG Chloride ABG Glucose Oxyhemoglobin Carboxyhemoglobin Sodium 150 H Potassium 3.4 L D Chloride 119.2 H Carbon Dioxide BUN 30 H Creatinine 0.4 L Glucose 137 H POC Glucose 58 L Lactic Acid Calcium 7.2 L Phosphorus Magnesium Total Creatine Kinase Troponin T Total Protein Albumin Triglycerides LDL Cholesterol Direct HDL Cholesterol Arterial Blood Glucose Arterial Blood Ionized Calcium Urine pH Urine WBC (Auto) Vancomycin Trough Salicylates Acetaminophen Crossmatch 11/09/20 11/09/20 11/10/20 06:08 22:16 13:46 WBC 16.1 H RBC 2.52 L Hgb 8.1 L Hct 25.2 L MCV 100 H MCH MCHC RDW 18.2 H Plt Count Lymph % (Auto) [place] % (Auto) [place] # (Auto) Seg Neutrophils % Seg Neuts % (Manual) 90.0 H Lymphocytes % (Manual) 3.0 L Nucleated RBC % Seg Neutrophils # Seg Neutrophils # Man 14.5 H Lymphocytes # (Manual) 0.5 L Monocytes # (Manual) 1.1 H PT INR ABG pH POC ABG pCO2 POC ABG pO2 ABG pO2 ABG HCO3 ABG O2 Saturation ABG Base Excess ABG Hemoglobin ABG Oxyhemoglobin ABG Sodium ABG Potassium ABG Chloride ABG Glucose Oxyhemoglobin Carboxyhemoglobin Sodium Potassium Chloride Carbon Dioxide BUN Creatinine Glucose POC Glucose 122 H 120 H Lactic Acid Calcium Phosphorus Magnesium Total Creatine Kinase Troponin T Total Protein Albumin Triglycerides LDL Cholesterol Direct HDL Cholesterol Arterial Blood Glucose Arterial Blood Ionized Calcium Urine pH Urine WBC (Auto) Vancomycin Trough Salicylates Acetaminophen Crossmatch 11/10/20 11/10/20 11/11/20 13:46 15:59 11:43 WBC RBC Hgb Hct MCV MCH MCHC RDW Plt Count Lymph % (Auto) [place] % (Auto) [place] # (Auto) Seg Neutrophils % Seg Neuts % (Manual) Lymphocytes % (Manual) Nucleated RBC % Seg Neutrophils # Seg Neutrophils # Man Lymphocytes # (Manual) Monocytes # (Manual) PT INR ABG pH POC ABG pCO2 POC ABG pO2 ABG pO2 ABG HCO3 ABG O2 Saturation ABG Base Excess ABG Hemoglobin ABG Oxyhemoglobin ABG Sodium ABG Potassium ABG Chloride ABG Glucose Oxyhemoglobin Carboxyhemoglobin Sodium 153 H Potassium Chloride 120.6 H Carbon Dioxide BUN 27 H Creatinine 0.3 L Glucose 112 H POC Glucose 40 L 124 H Lactic Acid Calcium 6.8 L Phosphorus Magnesium Total Creatine Kinase Troponin T Total Protein Albumin Triglycerides LDL Cholesterol Direct HDL Cholesterol Arterial Blood Glucose Arterial Blood Ionized Calcium Urine pH Urine WBC (Auto) Vancomycin Trough Salicylates Acetaminophen Crossmatch 11/11/20 11/11/20 11/11/20 14:38 14:38 14:38 WBC 13.8 H RBC 2.43 L Hgb 7.6 L Hct 24.0 L MCV 99 H MCH MCHC RDW 18.0 H Plt Count Lymph % (Auto) [place] % (Auto) [place] # (Auto) Seg Neutrophils % Seg Neuts % (Manual) Lymphocytes % (Manual) Nucleated RBC % Seg Neutrophils # Seg Neutrophils # Man Lymphocytes # (Manual) Monocytes # (Manual) PT 15.0 H INR 1.18 H ABG pH POC ABG pCO2 POC ABG pO2 ABG pO2 ABG HCO3 ABG O2 Saturation ABG Base Excess ABG Hemoglobin ABG Oxyhemoglobin ABG Sodium ABG Potassium ABG Chloride ABG Glucose Oxyhemoglobin Carboxyhemoglobin Sodium 154 H Potassium 3.1 L D Chloride 122.1 H Carbon Dioxide BUN 26 H Creatinine 0.4 L Glucose 140 H POC Glucose Lactic Acid Calcium 7.3 L Phosphorus Magnesium Total Creatine Kinase Troponin T Total Protein Albumin Triglycerides LDL Cholesterol Direct HDL Cholesterol Arterial Blood Glucose Arterial Blood Ionized Calcium Urine pH Urine WBC (Auto) Vancomycin Trough Salicylates Acetaminophen Crossmatch 11/11/20 11/11/20 11/12/20 18:39 18:42 00:03 WBC RBC Hgb Hct MCV MCH MCHC RDW Plt Count Lymph % (Auto) [place] % (Auto) [place] # (Auto) Seg Neutrophils % Seg Neuts % (Manual) Lymphocytes % (Manual) Nucleated RBC % Seg Neutrophils # Seg Neutrophils # Man Lymphocytes # (Manual) Monocytes # (Manual) PT INR ABG pH POC ABG pCO2 POC ABG pO2 ABG pO2 ABG HCO3 ABG O2 Saturation ABG Base Excess ABG Hemoglobin ABG Oxyhemoglobin ABG Sodium ABG Potassium ABG Chloride ABG Glucose Oxyhemoglobin Carboxyhemoglobin Sodium Potassium Chloride Carbon Dioxide BUN Creatinine Glucose POC Glucose 45 L 66 L 108 H Lactic Acid Calcium Phosphorus Magnesium Total Creatine Kinase Troponin T Total Protein Albumin Triglycerides LDL Cholesterol Direct HDL Cholesterol Arterial Blood Glucose Arterial Blood Ionized Calcium Urine pH Urine WBC (Auto) Vancomycin Trough Salicylates Acetaminophen Crossmatch 11/12/20 11/12/20 11/12/20 05:44 08:33 08:33 WBC 13.4 H RBC 2.35 L Hgb 7.5 L Hct 23.7 L MCV 101 H MCH MCHC RDW 19.7 H Plt Count Lymph % (Auto) [place] % (Auto) [place] # (Auto) Seg Neutrophils % Seg Neuts % (Manual) Lymphocytes % (Manual) Nucleated RBC % Seg Neutrophils # Seg Neutrophils # Man Lymphocytes # (Manual) Monocytes # (Manual) PT INR ABG pH POC ABG pCO2 POC ABG pO2 ABG pO2 ABG HCO3 ABG O2 Saturation ABG Base Excess ABG Hemoglobin ABG Oxyhemoglobin ABG Sodium ABG Potassium ABG Chloride ABG Glucose Oxyhemoglobin Carboxyhemoglobin Sodium 154 H Potassium 2.9 L* Chloride 121.4 H Carbon Dioxide BUN 26 H Creatinine 0.4 L Glucose 153 H POC Glucose 114 H Lactic Acid Calcium 7.3 L Phosphorus Magnesium Total Creatine Kinase Troponin T Total Protein Albumin Triglycerides LDL Cholesterol Direct HDL Cholesterol Arterial Blood Glucose Arterial Blood Ionized Calcium Urine pH Urine WBC (Auto) Vancomycin Trough Salicylates Acetaminophen Crossmatch 11/12/20 11/12/20 11/13/20 11:38 17:17 05:28 WBC RBC Hgb Hct MCV MCH MCHC RDW Plt Count Lymph % (Auto) [place] % (Auto) [place] # (Auto) Seg Neutrophils % Seg Neuts % (Manual) Lymphocytes % (Manual) Nucleated RBC % Seg Neutrophils # Seg Neutrophils # Man Lymphocytes # (Manual) Monocytes # (Manual) PT INR ABG pH POC ABG pCO2 51.4 H POC ABG pO2 41.7 L ABG pO2 ABG HCO3 ABG O2 Saturation ABG Base Excess ABG Hemoglobin 9.1 L ABG Oxyhemoglobin 72.2 L ABG Sodium 151.1 H ABG Potassium 3.2 L ABG Chloride 122.0 H ABG Glucose 191 H Oxyhemoglobin Carboxyhemoglobin Sodium Potassium Chloride Carbon Dioxide BUN Creatinine Glucose POC Glucose 125 H 127 H Lactic Acid Calcium Phosphorus Magnesium Total Creatine Kinase Troponin T Total Protein Albumin Triglycerides LDL Cholesterol Direct HDL Cholesterol Arterial Blood Glucose 191 H Arterial Blood Ionized Calcium Urine pH Urine WBC (Auto) Vancomycin Trough Salicylates Acetaminophen Crossmatch 11/13/20 11/13/20 11/13/20 10:46 23:15 23:15 WBC 12.2 H RBC 2.41 L Hgb 7.7 L Hct 24.5 L MCV 102 H MCH MCHC RDW 23.0 H Plt Count Lymph % (Auto) [place] % (Auto) [place] # (Auto) Seg Neutrophils % Seg Neuts % (Manual) Lymphocytes % (Manual) Nucleated RBC % Seg Neutrophils # Seg Neutrophils # Man Lymphocytes # (Manual) Monocytes # (Manual) PT INR ABG pH POC ABG pCO2 POC ABG pO2 ABG pO2 ABG HCO3 ABG O2 Saturation ABG Base Excess ABG Hemoglobin ABG Oxyhemoglobin ABG Sodium ABG Potassium ABG Chloride ABG Glucose Oxyhemoglobin Carboxyhemoglobin Sodium Potassium Chloride Carbon Dioxide BUN Creatinine Glucose POC Glucose 153 H Lactic Acid Calcium Phosphorus Magnesium Total Creatine Kinase Troponin T 0.123 H* Total Protein Albumin Triglycerides LDL Cholesterol Direct HDL Cholesterol Arterial Blood Glucose Arterial Blood Ionized Calcium Urine pH Urine WBC (Auto) Vancomycin Trough Salicylates Acetaminophen Crossmatch 11/13/20 11/13/20 11/14/20 23:15 Unknown 05:26 WBC RBC Hgb Hct MCV MCH MCHC RDW Plt Count Lymph % (Auto) [place] % (Auto) [place] # (Auto) Seg Neutrophils % Seg Neuts % (Manual) Lymphocytes % (Manual) Nucleated RBC % Seg Neutrophils # Seg Neutrophils # Man Lymphocytes # (Manual) Monocytes # (Manual) PT INR ABG pH 7.295 L POC ABG pCO2 56.0 H POC ABG pO2 49.1 L ABG pO2 ABG HCO3 ABG O2 Saturation ABG Base Excess ABG Hemoglobin 8.3 L ABG Oxyhemoglobin 77.1 L ABG Sodium 150.5 H ABG Potassium 3.3 L ABG Chloride 121.0 H ABG Glucose 187 H Oxyhemoglobin Carboxyhemoglobin Sodium 152 H Potassium 3.3 L Chloride 117.8 H Carbon Dioxide BUN 25 H Creatinine 0.4 L Glucose 123 H POC Glucose 46 L Lactic Acid Calcium 7.5 L Phosphorus Magnesium Total Creatine Kinase Troponin T Total Protein Albumin Triglycerides LDL Cholesterol Direct HDL Cholesterol Arterial Blood Glucose 187 H Arterial Blood Ionized Calcium Urine pH Urine WBC (Auto) Vancomycin Trough Salicylates Acetaminophen Crossmatch 11/14/20 11/14/20 11/14/20 06:26 22:26 22:26 WBC RBC 2.75 L Hgb 9.0 L Hct 27.8 L MCV 101 H MCH 33 H MCHC RDW 22.8 H Plt Count Lymph % (Auto) [place] % (Auto) [place] # (Auto) Seg Neutrophils % Seg Neuts % (Manual) Lymphocytes % (Manual) Nucleated RBC % Seg Neutrophils # Seg Neutrophils # Man Lymphocytes # (Manual) Monocytes # (Manual) PT INR ABG pH POC ABG pCO2 POC ABG pO2 ABG pO2 ABG HCO3 ABG O2 Saturation ABG Base Excess ABG Hemoglobin ABG Oxyhemoglobin ABG Sodium ABG Potassium ABG Chloride ABG Glucose Oxyhemoglobin Carboxyhemoglobin Sodium 147 H Potassium 3.3 L Chloride 114.3 H Carbon Dioxide BUN 23 H Creatinine 0.3 L Glucose 209 H POC Glucose 135 H Lactic Acid Calcium 7.4 L Phosphorus Magnesium Total Creatine Kinase Troponin T Total Protein Albumin Triglycerides LDL Cholesterol Direct HDL Cholesterol Arterial Blood Glucose Arterial Blood Ionized Calcium Urine pH Urine WBC (Auto) Vancomycin Trough Salicylates Acetaminophen Crossmatch 11/14/20 11/15/20 11/15/20 23:22 04:28 05:57 WBC RBC Hgb Hct MCV MCH MCHC RDW Plt Count Lymph % (Auto) [place] % (Auto) [place] # (Auto) Seg Neutrophils % Seg Neuts % (Manual) Lymphocytes % (Manual) Nucleated RBC % Seg Neutrophils # Seg Neutrophils # Man Lymphocytes # (Manual) Monocytes # (Manual) PT INR ABG pH POC ABG pCO2 POC ABG pO2 ABG pO2 ABG HCO3 ABG O2 Saturation ABG Base Excess ABG Hemoglobin ABG Oxyhemoglobin ABG Sodium ABG Potassium ABG Chloride ABG Glucose Oxyhemoglobin Carboxyhemoglobin Sodium 152 H Potassium Chloride 118.1 H Carbon Dioxide BUN 22 H Creatinine 0.3 L Glucose 190 H POC Glucose 136 H 151 H Lactic Acid Calcium 7.5 L Phosphorus Magnesium Total Creatine Kinase Troponin T Total Protein Albumin Triglycerides LDL Cholesterol Direct HDL Cholesterol Arterial Blood Glucose Arterial Blood Ionized Calcium Urine pH Urine WBC (Auto) Vancomycin Trough Salicylates Acetaminophen Crossmatch 11/15/20 11/15/20 11/15/20 11:40 16:56 21:53 WBC RBC Hgb Hct MCV MCH MCHC RDW Plt Count Lymph % (Auto) [place] % (Auto) [place] # (Auto) Seg Neutrophils % Seg Neuts % (Manual) Lymphocytes % (Manual) Nucleated RBC % Seg Neutrophils # Seg Neutrophils # Man Lymphocytes # (Manual) Monocytes # (Manual) PT INR ABG pH 7.457 H POC ABG pCO2 POC ABG pO2 ABG pO2 48.3 L ABG HCO3 26.1 H ABG O2 Saturation 82.9 L ABG Base Excess ABG Hemoglobin 9.7 L ABG Oxyhemoglobin ABG Sodium ABG Potassium ABG Chloride ABG Glucose Oxyhemoglobin 81.0 L Carboxyhemoglobin Sodium Potassium Chloride Carbon Dioxide BUN Creatinine Glucose POC Glucose 129 H 115 H Lactic Acid Calcium Phosphorus Magnesium Total Creatine Kinase Troponin T Total Protein Albumin Triglycerides LDL Cholesterol Direct HDL Cholesterol Arterial Blood Glucose Arterial Blood Ionized Calcium Urine pH Urine WBC (Auto) Vancomycin Trough Salicylates Acetaminophen Crossmatch 11/15/20 11/16/20 11/16/20 23:12 00:07 00:09 WBC RBC Hgb Hct MCV MCH MCHC RDW Plt Count Lymph % (Auto) [place] % (Auto) [place] # (Auto) Seg Neutrophils % Seg Neuts % (Manual) Lymphocytes % (Manual) Nucleated RBC % Seg Neutrophils # Seg Neutrophils # Man Lymphocytes # (Manual) Monocytes # (Manual) PT INR ABG pH POC ABG pCO2 POC ABG pO2 ABG pO2 95.1 H ABG HCO3 26.6 H ABG O2 Saturation ABG Base Excess ABG Hemoglobin 7.5 L ABG Oxyhemoglobin ABG Sodium ABG Potassium ABG Chloride ABG Glucose Oxyhemoglobin Carboxyhemoglobin Sodium Potassium Chloride Carbon Dioxide BUN Creatinine Glucose POC Glucose 13 L 153 H Lactic Acid Calcium Phosphorus Magnesium Total Creatine Kinase Troponin T Total Protein Albumin Triglycerides LDL Cholesterol Direct HDL Cholesterol Arterial Blood Glucose Arterial Blood Ionized Calcium Urine pH Urine WBC (Auto) Vancomycin Trough Salicylates Acetaminophen Crossmatch 11/16/20 11/16/20 11/16/20 03:43 04:00 04:00 WBC RBC 2.33 L Hgb 7.7 L Hct 24.5 L MCV 105 H MCH 33 H MCHC 31 L RDW 22.9 H Plt Count Lymph % (Auto) [place] % (Auto) [place] # (Auto) Seg Neutrophils % Seg Neuts % (Manual) Lymphocytes % (Manual) Nucleated RBC % Seg Neutrophils # Seg Neutrophils # Man Lymphocytes # (Manual) Monocytes # (Manual) PT INR ABG pH 7.348 L POC ABG pCO2 POC ABG pO2 ABG pO2 91.6 H ABG HCO3 26.3 H ABG O2 Saturation ABG Base Excess ABG Hemoglobin 7.3 L ABG Oxyhemoglobin ABG Sodium ABG Potassium ABG Chloride ABG Glucose Oxyhemoglobin Carboxyhemoglobin Sodium 148 H Potassium 3.5 L Chloride 115.9 H Carbon Dioxide BUN Creatinine 0.4 L Glucose 195 H POC Glucose Lactic Acid Calcium 7.6 L Phosphorus Magnesium Total Creatine Kinase Troponin T Total Protein Albumin Triglycerides LDL Cholesterol Direct HDL Cholesterol Arterial Blood Glucose Arterial Blood Ionized Calcium Urine pH Urine WBC (Auto) Vancomycin Trough Salicylates Acetaminophen Crossmatch 11/16/20 11/16/20 11/16/20 05:16 07:40 12:10 WBC RBC Hgb Hct MCV MCH MCHC RDW Plt Count Lymph % (Auto) [place] % (Auto) [place] # (Auto) Seg Neutrophils % Seg Neuts % (Manual) Lymphocytes % (Manual) Nucleated RBC % Seg Neutrophils # Seg Neutrophils # Man Lymphocytes # (Manual) Monocytes # (Manual) PT INR ABG pH POC ABG pCO2 POC ABG pO2 ABG pO2 ABG HCO3 ABG O2 Saturation ABG Base Excess ABG Hemoglobin ABG Oxyhemoglobin ABG Sodium ABG Potassium ABG Chloride ABG Glucose Oxyhemoglobin Carboxyhemoglobin Sodium Potassium Chloride Carbon Dioxide BUN Creatinine Glucose POC Glucose 61 L 122 H 140 H Lactic Acid Calcium Phosphorus Magnesium Total Creatine Kinase Troponin T Total Protein Albumin Triglycerides LDL Cholesterol Direct HDL Cholesterol Arterial Blood Glucose Arterial Blood Ionized Calcium Urine pH Urine WBC (Auto) Vancomycin Trough Salicylates Acetaminophen Crossmatch 11/16/20 11/16/20 11/17/20 17:14 23:40 04:30 WBC RBC Hgb Hct MCV MCH MCHC RDW Plt Count Lymph % (Auto) [place] % (Auto) [place] # (Auto) Seg Neutrophils % Seg Neuts % (Manual) Lymphocytes % (Manual) Nucleated RBC % Seg Neutrophils # Seg Neutrophils # Man Lymphocytes # (Manual) Monocytes # (Manual) PT INR ABG pH 7.470 H POC ABG pCO2 POC ABG pO2 75.4 L ABG pO2 ABG HCO3 ABG O2 Saturation ABG Base Excess ABG Hemoglobin 7 L ABG Oxyhemoglobin ABG Sodium ABG Potassium ABG Chloride 116.0 H ABG Glucose 161 H Oxyhemoglobin Carboxyhemoglobin Sodium Potassium Chloride Carbon Dioxide BUN Creatinine Glucose POC Glucose 139 H 151 H Lactic Acid Calcium Phosphorus Magnesium Total Creatine Kinase Troponin T Total Protein Albumin Triglycerides LDL Cholesterol Direct HDL Cholesterol Arterial Blood Glucose 161 H Arterial Blood Ionized Calcium Urine pH Urine WBC (Auto) Vancomycin Trough Salicylates Acetaminophen Crossmatch 11/17/20 11/17/20 11/17/20 09:50 09:50 11:10 WBC RBC 2.02 L Hgb 6.6 L Hct 20.2 L MCV 100 H MCH 33 H MCHC RDW 22.4 H Plt Count Lymph % (Auto) [place] % (Auto) [place] # (Auto) Seg Neutrophils % Seg Neuts % (Manual) Lymphocytes % (Manual) Nucleated RBC % Seg Neutrophils # Seg Neutrophils # Man Lymphocytes # (Manual) Monocytes # (Manual) PT INR ABG pH POC ABG pCO2 POC ABG pO2 ABG pO2 ABG HCO3 ABG O2 Saturation ABG Base Excess ABG Hemoglobin ABG Oxyhemoglobin ABG Sodium ABG Potassium ABG Chloride ABG Glucose Oxyhemoglobin Carboxyhemoglobin Sodium Potassium Chloride 111.8 H Carbon Dioxide BUN 23 H Creatinine 0.4 L Glucose 142 H POC Glucose Lactic Acid Calcium 7.3 L Phosphorus Magnesium Total Creatine Kinase Troponin T Total Protein Albumin Triglycerides LDL Cholesterol Direct HDL Cholesterol Arterial Blood Glucose Arterial Blood Ionized Calcium Urine pH Urine WBC (Auto) Vancomycin Trough Salicylates Acetaminophen Crossmatch See Detail 11/17/20 11/17/20 11/17/20 11:52 11:57 23:22 WBC RBC Hgb Hct MCV MCH MCHC RDW Plt Count Lymph % (Auto) [place] % (Auto) [place] # (Auto) Seg Neutrophils % Seg Neuts % (Manual) Lymphocytes % (Manual) Nucleated RBC % Seg Neutrophils # Seg Neutrophils # Man Lymphocytes # (Manual) Monocytes # (Manual) PT INR ABG pH POC ABG pCO2 POC ABG pO2 ABG pO2 ABG HCO3 ABG O2 Saturation ABG Base Excess ABG Hemoglobin ABG Oxyhemoglobin ABG Sodium ABG Potassium ABG Chloride ABG Glucose Oxyhemoglobin Carboxyhemoglobin Sodium Potassium Chloride Carbon Dioxide BUN Creatinine Glucose POC Glucose 42 L 114 H 63 L Lactic Acid Calcium Phosphorus Magnesium Total Creatine Kinase Troponin T Total Protein Albumin Triglycerides LDL Cholesterol Direct HDL Cholesterol Arterial Blood Glucose Arterial Blood Ionized Calcium Urine pH Urine WBC (Auto) Vancomycin Trough Salicylates Acetaminophen Crossmatch 11/17/20 11/18/20 11/18/20 23:27 04:06 04:45 WBC RBC 2.36 L Hgb 7.4 L Hct 23.4 L MCV 99 H MCH MCHC RDW 21.6 H Plt Count Lymph % (Auto) [place] % (Auto) [place] # (Auto) Seg Neutrophils % Seg Neuts % (Manual) Lymphocytes % (Manual) Nucleated RBC % Seg Neutrophils # Seg Neutrophils # Man Lymphocytes # (Manual) Monocytes # (Manual) PT INR ABG pH POC ABG pCO2 POC ABG pO2 67.7 L ABG pO2 ABG HCO3 ABG O2 Saturation ABG Base Excess ABG Hemoglobin 8.3 L ABG Oxyhemoglobin ABG Sodium ABG Potassium ABG Chloride 112.0 H ABG Glucose 143 H Oxyhemoglobin Carboxyhemoglobin Sodium Potassium Chloride Carbon Dioxide BUN Creatinine Glucose POC Glucose 124 H Lactic Acid Calcium Phosphorus Magnesium Total Creatine Kinase Troponin T Total Protein Albumin Triglycerides LDL Cholesterol Direct HDL Cholesterol Arterial Blood Glucose 143 H Arterial Blood Ionized Calcium 4.5 L Urine pH Urine WBC (Auto) Vancomycin Trough Salicylates Acetaminophen Crossmatch 11/18/20 11/18/20 11/18/20 04:45 05:56 23:46 WBC RBC Hgb Hct MCV MCH MCHC RDW Plt Count Lymph % (Auto) [place] % (Auto) [place] # (Auto) Seg Neutrophils % Seg Neuts % (Manual) Lymphocytes % (Manual) Nucleated RBC % Seg Neutrophils # Seg Neutrophils # Man Lymphocytes # (Manual) Monocytes # (Manual) PT INR ABG pH POC ABG pCO2 POC ABG pO2 ABG pO2 ABG HCO3 ABG O2 Saturation ABG Base Excess ABG Hemoglobin ABG Oxyhemoglobin ABG Sodium ABG Potassium ABG Chloride ABG Glucose Oxyhemoglobin Carboxyhemoglobin Sodium Potassium Chloride 107.9 H Carbon Dioxide BUN 23 H Creatinine 0.4 L Glucose 139 H POC Glucose 133 H 66 L Lactic Acid Calcium 7.6 L Phosphorus Magnesium Total Creatine Kinase Troponin T Total Protein Albumin Triglycerides LDL Cholesterol Direct HDL Cholesterol Arterial Blood Glucose Arterial Blood Ionized Calcium Urine pH Urine WBC (Auto) Vancomycin Trough Salicylates Acetaminophen Crossmatch 11/18/20 11/19/20 11/19/20 23:52 05:48 06:36 WBC RBC Hgb Hct MCV MCH MCHC RDW Plt Count Lymph % (Auto) [place] % (Auto) [place] # (Auto) Seg Neutrophils % Seg Neuts % (Manual) Lymphocytes % (Manual) Nucleated RBC % Seg Neutrophils # Seg Neutrophils # Man Lymphocytes # (Manual) Monocytes # (Manual) PT INR ABG pH POC ABG pCO2 POC ABG pO2 ABG pO2 ABG HCO3 ABG O2 Saturation ABG Base Excess ABG Hemoglobin ABG Oxyhemoglobin ABG Sodium ABG Potassium ABG Chloride ABG Glucose Oxyhemoglobin Carboxyhemoglobin Sodium Potassium Chloride Carbon Dioxide BUN 21 H Creatinine 0.4 L Glucose 119 H POC Glucose 118 H 108 H Lactic Acid Calcium 7.8 L Phosphorus Magnesium Total Creatine Kinase Troponin T Total Protein Albumin Triglycerides LDL Cholesterol Direct HDL Cholesterol Arterial Blood Glucose Arterial Blood Ionized Calcium Urine pH Urine WBC (Auto) Vancomycin Trough Salicylates Acetaminophen Crossmatch 11/19/20 11/19/20 11/19/20 06:36 06:36 18:15 WBC RBC 2.79 L Hgb 9.0 L Hct 27.8 L MCV 100 H MCH MCHC RDW 20.7 H Plt Count Lymph % (Auto) [place] % (Auto) [place] # (Auto) Seg Neutrophils % Seg Neuts % (Manual) Lymphocytes % (Manual) Nucleated RBC % Seg Neutrophils # Seg Neutrophils # Man Lymphocytes # (Manual) Monocytes # (Manual) PT INR 1.15 H ABG pH POC ABG pCO2 POC ABG pO2 ABG pO2 ABG HCO3 ABG O2 Saturation ABG Base Excess ABG Hemoglobin ABG Oxyhemoglobin ABG Sodium ABG Potassium ABG Chloride ABG Glucose Oxyhemoglobin Carboxyhemoglobin Sodium Potassium Chloride Carbon Dioxide BUN Creatinine Glucose POC Glucose 115 H Lactic Acid Calcium Phosphorus Magnesium Total Creatine Kinase Troponin T Total Protein Albumin Triglycerides LDL Cholesterol Direct HDL Cholesterol Arterial Blood Glucose Arterial Blood Ionized Calcium Urine pH Urine WBC (Auto) Vancomycin Trough Salicylates Acetaminophen Crossmatch 11/19/20 11/19/20 11/20/20 23:27 Unknown 04:56 WBC RBC Hgb Hct MCV MCH MCHC RDW Plt Count Lymph % (Auto) [place] % (Auto) [place] # (Auto) Seg Neutrophils % Seg Neuts % (Manual) Lymphocytes % (Manual) Nucleated RBC % Seg Neutrophils # Seg Neutrophils # Man Lymphocytes # (Manual) Monocytes # (Manual) PT INR ABG pH 7.457 H POC ABG pCO2 POC ABG pO2 57.4 L ABG pO2 72.4 L ABG HCO3 26.9 H ABG O2 Saturation ABG Base Excess ABG Hemoglobin 8.5 L 9.6 L ABG Oxyhemoglobin 90.1 L ABG Sodium ABG Potassium ABG Chloride 109.0 H ABG Glucose 142 H Oxyhemoglobin 94.1 L Carboxyhemoglobin Sodium Potassium Chloride Carbon Dioxide BUN Creatinine Glucose POC Glucose 129 H Lactic Acid Calcium Phosphorus Magnesium Total Creatine Kinase Troponin T Total Protein Albumin Triglycerides LDL Cholesterol Direct HDL Cholesterol Arterial Blood Glucose 142 H Arterial Blood Ionized Calcium Urine pH Urine WBC (Auto) Vancomycin Trough Salicylates Acetaminophen Crossmatch 11/20/20 11/20/20 11/20/20 05:07 05:45 05:45 WBC 11.7 H RBC 2.74 L Hgb 8.9 L Hct 26.3 L MCV 96 H MCH 33 H MCHC RDW 18.6 H Plt Count Lymph % (Auto) [place] % (Auto) [place] # (Auto) Seg Neutrophils % Seg Neuts % (Manual) Lymphocytes % (Manual) Nucleated RBC % Seg Neutrophils # Seg Neutrophils # Man Lymphocytes # (Manual) Monocytes # (Manual) PT INR ABG pH POC ABG pCO2 POC ABG pO2 ABG pO2 ABG HCO3 ABG O2 Saturation ABG Base Excess ABG Hemoglobin ABG Oxyhemoglobin ABG Sodium ABG Potassium ABG Chloride ABG Glucose Oxyhemoglobin Carboxyhemoglobin Sodium Potassium Chloride Carbon Dioxide 31 H BUN Creatinine 0.4 L Glucose 127 H POC Glucose 129 H Lactic Acid Calcium 8.0 L Phosphorus Magnesium Total Creatine Kinase Troponin T Total Protein Albumin Triglycerides LDL Cholesterol Direct HDL Cholesterol Arterial Blood Glucose Arterial Blood Ionized Calcium Urine pH Urine WBC (Auto) Vancomycin Trough Salicylates Acetaminophen Crossmatch 11/20/20 11/20/20 11/21/20 12:02 17:52 00:02 WBC RBC Hgb Hct MCV MCH MCHC RDW Plt Count Lymph % (Auto) [place] % (Auto) [place] # (Auto) Seg Neutrophils % Seg Neuts % (Manual) Lymphocytes % (Manual) Nucleated RBC % Seg Neutrophils # Seg Neutrophils # Man Lymphocytes # (Manual) Monocytes # (Manual) PT INR ABG pH POC ABG pCO2 POC ABG pO2 ABG pO2 ABG HCO3 ABG O2 Saturation ABG Base Excess ABG Hemoglobin ABG Oxyhemoglobin ABG Sodium ABG Potassium ABG Chloride ABG Glucose Oxyhemoglobin Carboxyhemoglobin Sodium Potassium Chloride Carbon Dioxide BUN Creatinine Glucose POC Glucose 134 H 115 H 116 H Lactic Acid Calcium Phosphorus Magnesium Total Creatine Kinase Troponin T Total Protein Albumin Triglycerides LDL Cholesterol Direct HDL Cholesterol Arterial Blood Glucose Arterial Blood Ionized Calcium Urine pH Urine WBC (Auto) Vancomycin Trough Salicylates Acetaminophen Crossmatch 11/21/20 11/21/20 11/21/20 03:23 04:00 05:14 WBC RBC Hgb Hct MCV MCH MCHC RDW Plt Count Lymph % (Auto) [place] % (Auto) [place] # (Auto) Seg Neutrophils % Seg Neuts % (Manual) Lymphocytes % (Manual) Nucleated RBC % Seg Neutrophils # Seg Neutrophils # Man Lymphocytes # (Manual) Monocytes # (Manual) PT INR ABG pH 7.479 H POC ABG pCO2 POC ABG pO2 73.7 L ABG pO2 ABG HCO3 ABG O2 Saturation ABG Base Excess ABG Hemoglobin 9.4 L ABG Oxyhemoglobin ABG Sodium ABG Potassium ABG Chloride 108.0 H ABG Glucose 135 H Oxyhemoglobin Carboxyhemoglobin Sodium Potassium Chloride Carbon Dioxide 34 H BUN Creatinine 0.4 L Glucose 125 H POC Glucose 116 H Lactic Acid Calcium 7.9 L Phosphorus Magnesium Total Creatine Kinase Troponin T Total Protein Albumin Triglycerides LDL Cholesterol Direct HDL Cholesterol Arterial Blood Glucose 135 H Arterial Blood Ionized Calcium 4.5 L Urine pH Urine WBC (Auto) Vancomycin Trough Salicylates Acetaminophen Crossmatch 11/22/20 11/22/20 11/22/20 04:00 04:00 05:34 WBC 12.2 H RBC 2.74 L Hgb 8.7 L Hct 27.4 L MCV 100 H MCH MCHC RDW 19.2 H Plt Count Lymph % (Auto) [place] % (Auto) [place] # (Auto) Seg Neutrophils % Seg Neuts % (Manual) Lymphocytes % (Manual) Nucleated RBC % Seg Neutrophils # Seg Neutrophils # Man Lymphocytes # (Manual) Monocytes # (Manual) PT INR ABG pH POC ABG pCO2 POC ABG pO2 ABG pO2 ABG HCO3 ABG O2 Saturation ABG Base Excess ABG Hemoglobin ABG Oxyhemoglobin ABG Sodium ABG Potassium ABG Chloride ABG Glucose Oxyhemoglobin Carboxyhemoglobin Sodium Potassium Chloride Carbon Dioxide BUN Creatinine 0.4 L Glucose POC Glucose 58 L Lactic Acid Calcium 7.7 L Phosphorus Magnesium Total Creatine Kinase Troponin T Total Protein Albumin Triglycerides LDL Cholesterol Direct HDL Cholesterol Arterial Blood Glucose Arterial Blood Ionized Calcium Urine pH Urine WBC (Auto) Vancomycin Trough Salicylates Acetaminophen Crossmatch 11/22/20 11/23/20 11/23/20 11:48 00:15 04:25 WBC RBC Hgb Hct MCV MCH MCHC RDW Plt Count Lymph % (Auto) [place] % (Auto) [place] # (Auto) Seg Neutrophils % Seg Neuts % (Manual) Lymphocytes % (Manual) Nucleated RBC % Seg Neutrophils # Seg Neutrophils # Man Lymphocytes # (Manual) Monocytes # (Manual) PT INR ABG pH 7.489 H POC ABG pCO2 POC ABG pO2 74.7 L ABG pO2 ABG HCO3 ABG O2 Saturation ABG Base Excess ABG Hemoglobin 9.6 L ABG Oxyhemoglobin ABG Sodium 135.6 L ABG Potassium ABG Chloride ABG Glucose 119 H Oxyhemoglobin Carboxyhemoglobin Sodium Potassium Chloride Carbon Dioxide BUN Creatinine Glucose POC Glucose 60 L 106 H Lactic Acid Calcium Phosphorus Magnesium Total Creatine Kinase Troponin T Total Protein Albumin Triglycerides LDL Cholesterol Direct HDL Cholesterol Arterial Blood Glucose 119 H Arterial Blood Ionized Calcium 4.4 L Urine pH Urine WBC (Auto) Vancomycin Trough Salicylates Acetaminophen Crossmatch 11/23/20 11/23/20 11/23/20 05:27 10:23 10:23 WBC 11.3 H RBC 2.58 L Hgb 8.4 L Hct 24.7 L MCV 96 H MCH MCHC RDW 18.2 H Plt Count Lymph % (Auto) [place] % (Auto) [place] # (Auto) Seg Neutrophils % Seg Neuts % (Manual) 94.0 H Lymphocytes % (Manual) 5.0 L Nucleated RBC % Seg Neutrophils # Seg Neutrophils # Man 10.6 H Lymphocytes # (Manual) 0.6 L Monocytes # (Manual) PT INR ABG pH POC ABG pCO2 POC ABG pO2 ABG pO2 ABG HCO3 ABG O2 Saturation ABG Base Excess ABG Hemoglobin ABG Oxyhemoglobin ABG Sodium ABG Potassium ABG Chloride ABG Glucose Oxyhemoglobin Carboxyhemoglobin Sodium Potassium Chloride Carbon Dioxide BUN Creatinine 0.4 L Glucose 101 H POC Glucose 121 H Lactic Acid Calcium 7.2 L Phosphorus Magnesium Total Creatine Kinase Troponin T Total Protein Albumin Triglycerides LDL Cholesterol Direct HDL Cholesterol Arterial Blood Glucose Arterial Blood Ionized Calcium Urine pH Urine WBC (Auto) Vancomycin Trough Salicylates Acetaminophen Crossmatch 11/23/20 11/23/20 11/24/20 11:53 23:19 05:31 WBC RBC Hgb Hct MCV MCH MCHC RDW Plt Count Lymph % (Auto) [place] % (Auto) [place] # (Auto) Seg Neutrophils % Seg Neuts % (Manual) Lymphocytes % (Manual) Nucleated RBC % Seg Neutrophils # Seg Neutrophils # Man Lymphocytes # (Manual) Monocytes # (Manual) PT INR ABG pH POC ABG pCO2 POC ABG pO2 ABG pO2 ABG HCO3 ABG O2 Saturation ABG Base Excess ABG Hemoglobin ABG Oxyhemoglobin ABG Sodium ABG Potassium ABG Chloride ABG Glucose Oxyhemoglobin Carboxyhemoglobin Sodium Potassium Chloride Carbon Dioxide BUN Creatinine Glucose POC Glucose 112 H 120 H 132 H Lactic Acid Calcium Phosphorus Magnesium Total Creatine Kinase Troponin T Total Protein Albumin Triglycerides LDL Cholesterol Direct HDL Cholesterol Arterial Blood Glucose Arterial Blood Ionized Calcium Urine pH Urine WBC (Auto) Vancomycin Trough Salicylates Acetaminophen Crossmatch 11/24/20 11/24/20 11/24/20 11:27 16:48 23:11 WBC RBC Hgb Hct MCV MCH MCHC RDW Plt Count Lymph % (Auto) [place] % (Auto) [place] # (Auto) Seg Neutrophils % Seg Neuts % (Manual) Lymphocytes % (Manual) Nucleated RBC % Seg Neutrophils # Seg Neutrophils # Man Lymphocytes # (Manual) Monocytes # (Manual) PT INR ABG pH POC ABG pCO2 POC ABG pO2 ABG pO2 ABG HCO3 ABG O2 Saturation ABG Base Excess ABG Hemoglobin ABG Oxyhemoglobin ABG Sodium ABG Potassium ABG Chloride ABG Glucose Oxyhemoglobin Carboxyhemoglobin Sodium Potassium Chloride Carbon Dioxide BUN Creatinine Glucose POC Glucose 137 H 128 H 114 H Lactic Acid Calcium Phosphorus Magnesium Total Creatine Kinase Troponin T Total Protein Albumin Triglycerides LDL Cholesterol Direct HDL Cholesterol Arterial Blood Glucose Arterial Blood Ionized Calcium Urine pH Urine WBC (Auto) Vancomycin Trough Salicylates Acetaminophen Crossmatch 11/25/20 11/25/20 11/25/20 05:06 11:20 11:31 WBC 19.0 H RBC 2.28 L Hgb 7.3 L Hct 22.5 L MCV 99 H MCH MCHC RDW 18.3 H Plt Count Lymph % (Auto) [place] % (Auto) [place] # (Auto) Seg Neutrophils % Seg Neuts % (Manual) Lymphocytes % (Manual) Nucleated RBC % Seg Neutrophils # Seg Neutrophils # Man Lymphocytes # (Manual) Monocytes # (Manual) PT INR ABG pH POC ABG pCO2 POC ABG pO2 ABG pO2 ABG HCO3 ABG O2 Saturation ABG Base Excess ABG Hemoglobin ABG Oxyhemoglobin ABG Sodium ABG Potassium ABG Chloride ABG Glucose Oxyhemoglobin Carboxyhemoglobin Sodium Potassium Chloride Carbon Dioxide BUN Creatinine Glucose POC Glucose 125 H 106 H Lactic Acid Calcium Phosphorus Magnesium Total Creatine Kinase Troponin T Total Protein Albumin Triglycerides LDL Cholesterol Direct HDL Cholesterol Arterial Blood Glucose Arterial Blood Ionized Calcium Urine pH Urine WBC (Auto) Vancomycin Trough Salicylates Acetaminophen Crossmatch 11/25/20 11/26/20 11/26/20 16:25 09:25 12:01 WBC 20.8 H RBC 2.82 L Hgb 8.7 L Hct 27.3 L MCV 97 H MCH MCHC RDW 17.9 H Plt Count Lymph % (Auto) [place] % (Auto) [place] # (Auto) Seg Neutrophils % Seg Neuts % (Manual) Lymphocytes % (Manual) Nucleated RBC % Seg Neutrophils # Seg Neutrophils # Man Lymphocytes # (Manual) Monocytes # (Manual) PT INR ABG pH 7.480 H POC ABG pCO2 POC ABG pO2 78.1 L ABG pO2 ABG HCO3 ABG O2 Saturation ABG Base Excess ABG Hemoglobin 8.5 L ABG Oxyhemoglobin ABG Sodium ABG Potassium ABG Chloride ABG Glucose 114 H Oxyhemoglobin Carboxyhemoglobin Sodium Potassium Chloride Carbon Dioxide BUN Creatinine Glucose POC Glucose 130 H Lactic Acid Calcium Phosphorus Magnesium Total Creatine Kinase Troponin T Total Protein Albumin Triglycerides LDL Cholesterol Direct HDL Cholesterol Arterial Blood Glucose 114 H Arterial Blood Ionized Calcium 4.5 L Urine pH Urine WBC (Auto) Vancomycin Trough Salicylates Acetaminophen Crossmatch 11/26/20 11/26/20 11/27/20 16:55 23:43 05:55 WBC 18.1 H RBC 2.48 L Hgb 7.8 L Hct 23.9 L MCV 97 H MCH MCHC RDW 17.7 H Plt Count Lymph % (Auto) [place] % (Auto) [place] # (Auto) Seg Neutrophils % Seg Neuts % (Manual) Lymphocytes % (Manual) Nucleated RBC % Seg Neutrophils # Seg Neutrophils # Man Lymphocytes # (Manual) Monocytes # (Manual) PT INR ABG pH POC ABG pCO2 POC ABG pO2 ABG pO2 ABG HCO3 ABG O2 Saturation ABG Base Excess ABG Hemoglobin ABG Oxyhemoglobin ABG Sodium ABG Potassium ABG Chloride ABG Glucose Oxyhemoglobin Carboxyhemoglobin Sodium Potassium Chloride Carbon Dioxide BUN Creatinine Glucose POC Glucose 123 H 110 H Lactic Acid Calcium Phosphorus Magnesium Total Creatine Kinase Troponin T Total Protein Albumin Triglycerides LDL Cholesterol Direct HDL Cholesterol Arterial Blood Glucose Arterial Blood Ionized Calcium Urine pH Urine WBC (Auto) Vancomycin Trough Salicylates Acetaminophen Crossmatch 11/27/20 11/27/20 11/27/20 05:55 11:41 18:08 WBC RBC Hgb Hct MCV MCH MCHC RDW Plt Count Lymph % (Auto) [place] % (Auto) [place] # (Auto) Seg Neutrophils % Seg Neuts % (Manual) Lymphocytes % (Manual) Nucleated RBC % Seg Neutrophils # Seg Neutrophils # Man Lymphocytes # (Manual) Monocytes # (Manual) PT INR ABG pH POC ABG pCO2 POC ABG pO2 ABG pO2 ABG HCO3 ABG O2 Saturation ABG Base Excess ABG Hemoglobin ABG Oxyhemoglobin ABG Sodium ABG Potassium ABG Chloride ABG Glucose Oxyhemoglobin Carboxyhemoglobin Sodium Potassium Chloride Carbon Dioxide 32 H BUN Creatinine 0.4 L Glucose 133 H POC Glucose 111 H 115 H Lactic Acid Calcium 7.5 L Phosphorus Magnesium Total Creatine Kinase Troponin T Total Protein 6.1 L Albumin 1.7 L Triglycerides LDL Cholesterol Direct HDL Cholesterol Arterial Blood Glucose Arterial Blood Ionized Calcium Urine pH Urine WBC (Auto) Vancomycin Trough Salicylates Acetaminophen Crossmatch 11/27/20 11/28/20 11/28/20 23:29 03:56 05:12 WBC RBC Hgb Hct MCV MCH MCHC RDW Plt Count Lymph % (Auto) [place] % (Auto) [place] # (Auto) Seg Neutrophils % Seg Neuts % (Manual) Lymphocytes % (Manual) Nucleated RBC % Seg Neutrophils # Seg Neutrophils # Man Lymphocytes # (Manual) Monocytes # (Manual) PT INR ABG pH 7.515 H POC ABG pCO2 POC ABG pO2 74.5 L ABG pO2 ABG HCO3 ABG O2 Saturation ABG Base Excess ABG Hemoglobin 8.4 L ABG Oxyhemoglobin ABG Sodium ABG Potassium ABG Chloride ABG Glucose 130 H Oxyhemoglobin Carboxyhemoglobin Sodium Potassium Chloride Carbon Dioxide BUN Creatinine Glucose POC Glucose 112 H 113 H Lactic Acid Calcium Phosphorus Magnesium Total Creatine Kinase Troponin T Total Protein Albumin Triglycerides LDL Cholesterol Direct HDL Cholesterol Arterial Blood Glucose 130 H Arterial Blood Ionized Calcium 4.5 L Urine pH Urine WBC (Auto) Vancomycin Trough Salicylates Acetaminophen Crossmatch 11/28/20 11/28/20 11/29/20 06:24 23:44 05:33 WBC RBC Hgb Hct MCV MCH MCHC RDW Plt Count Lymph % (Auto) [place] % (Auto) [place] # (Auto) Seg Neutrophils % Seg Neuts % (Manual) Lymphocytes % (Manual) Nucleated RBC % Seg Neutrophils # Seg Neutrophils # Man Lymphocytes # (Manual) Monocytes # (Manual) PT INR ABG pH POC ABG pCO2 POC ABG pO2 ABG pO2 ABG HCO3 ABG O2 Saturation ABG Base Excess ABG Hemoglobin ABG Oxyhemoglobin ABG Sodium ABG Potassium ABG Chloride ABG Glucose Oxyhemoglobin Carboxyhemoglobin Sodium 136 L Potassium Chloride Carbon Dioxide BUN Creatinine 0.4 L Glucose 124 H POC Glucose 112 H 107 H Lactic Acid Calcium 7.4 L Phosphorus Magnesium Total Creatine Kinase Troponin T Total Protein Albumin Triglycerides LDL Cholesterol Direct HDL Cholesterol Arterial Blood Glucose Arterial Blood Ionized Calcium Urine pH Urine WBC (Auto) Vancomycin Trough Salicylates Acetaminophen Crossmatch 11/29/20 11/29/20 11/29/20 11:59 23:16 23:16 WBC 15.5 H RBC 2.40 L Hgb 7.5 L Hct 23.1 L MCV 96 H MCH MCHC RDW 17.6 H Plt Count Lymph % (Auto) [place] % (Auto) [place] # (Auto) Seg Neutrophils % Seg Neuts % (Manual) Lymphocytes % (Manual) Nucleated RBC % Seg Neutrophils # Seg Neutrophils # Man Lymphocytes # (Manual) Monocytes # (Manual) PT INR ABG pH POC ABG pCO2 POC ABG pO2 ABG pO2 ABG HCO3 ABG O2 Saturation ABG Base Excess ABG Hemoglobin ABG Oxyhemoglobin ABG Sodium ABG Potassium ABG Chloride ABG Glucose Oxyhemoglobin Carboxyhemoglobin Sodium 135 L Potassium Chloride Carbon Dioxide 31 H BUN Creatinine 0.4 L Glucose 110 H POC Glucose 121 H Lactic Acid Calcium 7.6 L Phosphorus Magnesium Total Creatine Kinase Troponin T Total Protein Albumin Triglycerides LDL Cholesterol Direct HDL Cholesterol Arterial Blood Glucose Arterial Blood Ionized Calcium Urine pH Urine WBC (Auto) Vancomycin Trough Salicylates Acetaminophen Crossmatch 11/30/20 11/30/20 11/30/20 00:14 05:14 05:14 WBC 15.6 H RBC 2.46 L Hgb 7.7 L Hct 23.8 L MCV 97 H MCH MCHC RDW 17.2 H Plt Count Lymph % (Auto) 9.5 L [place] % (Auto) 10.3 H [place] # (Auto) 1.6 H Seg Neutrophils % 79.3 H Seg Neuts % (Manual) Lymphocytes % (Manual) Nucleated RBC % Seg Neutrophils # 12.3 H Seg Neutrophils # Man Lymphocytes # (Manual) Monocytes # (Manual) PT INR ABG pH POC ABG pCO2 POC ABG pO2 ABG pO2 ABG HCO3 ABG O2 Saturation ABG Base Excess ABG Hemoglobin ABG Oxyhemoglobin ABG Sodium ABG Potassium ABG Chloride ABG Glucose Oxyhemoglobin Carboxyhemoglobin Sodium Potassium Chloride Carbon Dioxide BUN 21 H Creatinine 0.4 L Glucose 126 H POC Glucose 109 H Lactic Acid Calcium 7.7 L Phosphorus Magnesium Total Creatine Kinase Troponin T Total Protein Albumin Triglycerides LDL Cholesterol Direct HDL Cholesterol Arterial Blood Glucose Arterial Blood Ionized Calcium Urine pH Urine WBC (Auto) Vancomycin Trough Salicylates Acetaminophen Crossmatch 11/30/20 11/30/20 12/02/20 06:10 12:11 05:05 WBC RBC Hgb Hct MCV MCH MCHC RDW Plt Count Lymph % (Auto) [place] % (Auto) [place] # (Auto) Seg Neutrophils % Seg Neuts % (Manual) Lymphocytes % (Manual) Nucleated RBC % Seg Neutrophils # Seg Neutrophils # Man Lymphocytes # (Manual) Monocytes # (Manual) PT INR ABG pH POC ABG pCO2 POC ABG pO2 ABG pO2 ABG HCO3 ABG O2 Saturation ABG Base Excess ABG Hemoglobin ABG Oxyhemoglobin ABG Sodium ABG Potassium ABG Chloride ABG Glucose Oxyhemoglobin Carboxyhemoglobin Sodium Potassium Chloride Carbon Dioxide BUN Creatinine Glucose POC Glucose 120 H 117 H 112 H Lactic Acid Calcium Phosphorus Magnesium Total Creatine Kinase Troponin T Total Protein Albumin Triglycerides LDL Cholesterol Direct HDL Cholesterol Arterial Blood Glucose Arterial Blood Ionized Calcium Urine pH Urine WBC (Auto) Vancomycin Trough Salicylates Acetaminophen Crossmatch 12/02/20 12/02/20 12/03/20 11:08 17:31 05:57 WBC 16.2 H RBC 2.43 L Hgb 7.4 L Hct 23.2 L MCV 96 H MCH MCHC RDW 17.8 H Plt Count Lymph % (Auto) [place] % (Auto) [place] # (Auto) Seg Neutrophils % Seg Neuts % (Manual) Lymphocytes % (Manual) Nucleated RBC % Seg Neutrophils # Seg Neutrophils # Man Lymphocytes # (Manual) Monocytes # (Manual) PT INR ABG pH POC ABG pCO2 POC ABG pO2 ABG pO2 ABG HCO3 ABG O2 Saturation ABG Base Excess ABG Hemoglobin ABG Oxyhemoglobin ABG Sodium ABG Potassium ABG Chloride ABG Glucose Oxyhemoglobin Carboxyhemoglobin Sodium Potassium Chloride Carbon Dioxide BUN Creatinine Glucose POC Glucose 130 H 120 H Lactic Acid Calcium Phosphorus Magnesium Total Creatine Kinase Troponin T Total Protein Albumin Triglycerides LDL Cholesterol Direct HDL Cholesterol Arterial Blood Glucose Arterial Blood Ionized Calcium Urine pH Urine WBC (Auto) Vancomycin Trough Salicylates Acetaminophen Crossmatch 12/03/20 12/03/20 12/04/20 05:57 11:37 04:41 WBC 14.6 H RBC 2.34 L Hgb 7.3 L Hct 22.3 L MCV 95 H MCH MCHC RDW 17.6 H Plt Count Lymph % (Auto) [place] % (Auto) [place] # (Auto) Seg Neutrophils % Seg Neuts % (Manual) Lymphocytes % (Manual) Nucleated RBC % Seg Neutrophils # Seg Neutrophils # Man Lymphocytes # (Manual) Monocytes # (Manual) PT INR ABG pH POC ABG pCO2 POC ABG pO2 ABG pO2 ABG HCO3 ABG O2 Saturation ABG Base Excess ABG Hemoglobin ABG Oxyhemoglobin ABG Sodium ABG Potassium ABG Chloride ABG Glucose Oxyhemoglobin Carboxyhemoglobin Sodium 135 L Potassium Chloride Carbon Dioxide BUN 22 H Creatinine 0.4 L Glucose 128 H POC Glucose 110 H Lactic Acid Calcium 7.7 L Phosphorus Magnesium Total Creatine Kinase Troponin T Total Protein Albumin Triglycerides LDL Cholesterol Direct HDL Cholesterol Arterial Blood Glucose Arterial Blood Ionized Calcium Urine pH Urine WBC (Auto) Vancomycin Trough Salicylates Acetaminophen Crossmatch 12/04/20 04:41 WBC RBC Hgb Hct MCV MCH MCHC RDW Plt Count Lymph % (Auto) [place] % (Auto) [place] # (Auto) Seg Neutrophils % Seg Neuts % (Manual) Lymphocytes % (Manual) Nucleated RBC % Seg Neutrophils # Seg Neutrophils # Man Lymphocytes # (Manual) Monocytes # (Manual) PT INR ABG pH POC ABG pCO2 POC ABG pO2 ABG pO2 ABG HCO3 ABG O2 Saturation ABG Base Excess ABG Hemoglobin ABG Oxyhemoglobin ABG Sodium ABG Potassium ABG Chloride ABG Glucose Oxyhemoglobin Carboxyhemoglobin Sodium 135 L Potassium Chloride Carbon Dioxide BUN 21 H Creatinine 0.4 L Glucose 110 H POC Glucose Lactic Acid Calcium 7.7 L Phosphorus Magnesium Total Creatine Kinase Troponin T Total Protein Albumin Triglycerides LDL Cholesterol Direct HDL Cholesterol Arterial Blood Glucose Arterial Blood Ionized Calcium Urine pH Urine WBC (Auto) Vancomycin Trough Salicylates Acetaminophen Crossmatch Allied health notes reviewed: nursing
[2020-12-04] MEDS ORDERED: AMIODARONE 200 MG TAB PO SCH (12:00)
--- NOTE | 2020-12-04 12:57 | Progress Note ---
Assessment and Plan Telemetry reviewed: A. fib heart rate 80s. No events overnight * Afib with RVR. * Optimize rate control and antihypertensive regimen. Reduce amiodarone to 200 mg p.o. daily. Continue metoprolol 50 mg p.o. twice daily continue Midodrine 10mg PO TID. * No systemic AC at this time in setting of anemia requiring PRBC tx, thrombocytopenia and sacral ulcer. * Elevated Troponin * Considering pt's advanced age and comorbidities will plan for conservative cardiac management. * Anemia requiring transfusion * Continue to hold AC in setting of anemia requiring transfusions. * Acute Respiratory Failure * s/p Trach. Ventilated. * DVT Prophylaxis. * On Lovenox DVT prophylaxis. * SCDs in place. Patient currently stable cardiac condition. Continue current cardiac regimen. Will follow. The patient has been seen in conjunction with Dr. Landa who agrees with the assessment and plan of care. - Patient Problems (1) AMS (altered mental status) Current Visit: Yes Status: Acute (2) Atrial fibrillation with RVR Current Visit: Yes Status: Acute (3) Acute respiratory failure Current Visit: Yes Status: Acute (4) Bilateral pneumonia Current Visit: Yes Status: Acute (5) Sepsis Current Visit: Yes Status: Acute (6) Sepsis associated hypotension Current Visit: Yes Status: Acute (7) Sacral decubitus ulcer, stage IV Current Visit: Yes Status: Acute (8) UTI (urinary tract infection) Current Visit: Yes Status: Acute (9) FAZAL (acute kidney injury) Current Visit: Yes Status: Acute (10) Hypomagnesemia Current Visit: Yes Status: Acute (11) Anemia Current Visit: Yes Status: Acute (12) Thrombocytopenia Current Visit: Yes Status: Acute Subjective Date of service: 12/04/20 Principal diagnosis: Acute Resp Fail, Septic Shock, Sacral Ulcer, AF with RVR Interval history: Pt is s/p Trach & PEG ventilated, awake and able to follow simple commands. Telemetry reviewed: A. fib 80s. No events overnight. Objective Last Vital Signs Temp 98.0 F 12/04/20 08:00 Pulse 96 H 12/04/20 11:51 Resp 25 H 12/04/20 11:51 BP 114/67 12/04/20 11:51 Pulse Ox 100 12/04/20 11:51 - Physical Examination General: No Apparent Distress, Other (intubated) HEENT: Positive: EOMI, Normocephaly, Mucus Membranes Moist Neck: Positive: neck supple, trachea midline Cardiac: Positive: irregularly irregular, S1/S2 Lungs: Positive: Ventilated Respirations Neuro: Positive: Other (awake, able to follow simple commands, aphasic s/p trach) Abdomen: Positive: Soft, Active Bowel Sounds. Negative: Tender Skin: Positive: Wound (sacral). Negative: Rash Musculoskeletal: No Fluid Collection, No Pain Extremities: Present: upper extr. pulses, lower extr. pulses, +1 Edema, Other (chronic skin changes noted) - Labs and Meds CBC 12/04/20 Range/Units 04:41 WBC 14.6 H (4.5-11.0) K/mm3 RBC 2.34 L (3.65-5.03) M/mm3 Hgb 7.3 L (11.8-15.2) gm/dl Hct 22.3 L (35.5-45.6) % Plt Count 430 (140-440) K/mm3 Comprehensive Metabolic Panel 12/04/20 Range/Units 04:41 Sodium 135 L (137-145) mmol/L Potassium 4.0 (3.6-5.0) mmol/L Chloride 100.3 (98-107) mmol/L Carbon Dioxide 27 (22-30) mmol/L BUN 21 H (9-20) mg/dL Creatinine 0.4 L (0.8-1.3) mg/dL Glucose 110 H (75-100) mg/dL Calcium 7.7 L (8.4-10.2) mg/dL - Imaging and Cardiology EKG: report reviewed, image reviewed Echo: report reviewed (10/28/2020- EF 55-60%, no significant valvular abnormalities) - Telemetry EKG Rhythm: Atrial Fibrillation Repolarization changes or abnormalities: nonspecific abnormality, ST segment, and/or T wave - Allied health notes Allied health notes reviewed: nursing
[2020-12-04 16:22] VITALS: BP 115/84
== END 2020-12-04 16:55 | DRG 3 ==
LOC: ED 16:33 → CC1 18:32 → 3A 11-09 13:05 → IMCU 11-10 11:25 → CC1 11-15 23:34
PROVIDERS: ADMIT Internal Medicine; ATTEND Internal Medicine
PROC: 0BH17EZ Insertion of Endotracheal Airway into Trachea, Via Natural or Artificial Opening (ICD-10-PCS; 2020-10-26)
PROC: 5A1955Z Respiratory Ventilation, Greater than 96 Consecutive Hours (ICD-10-PCS; 2020-10-26)
PROC: 05HY33Z Insertion of Infusion Device into Upper Vein, Percutaneous Approach (ICD-10-PCS; 2020-10-26)
PROC: B544ZZA Ultrasonography of Left Jugular Veins, Guidance (ICD-10-PCS; 2020-10-26)
PROC: 0KBN0ZZ Excision of Right Hip Muscle, Open Approach (ICD-10-PCS; principal; 2020-10-29)
PROC: 30233N1 Transfusion of Nonautologous Red Blood Cells into Peripheral Vein, Percutaneous Approach (ICD-10-PCS; 2020-10-30)
PROC: 4A033R1 Measurement of Arterial Saturation, Peripheral, Percutaneous Approach (ICD-10-PCS; 2020-11-01)
PROC: 5A09557 Assistance with Respiratory Ventilation, Greater than 96 Consecutive Hours, Continuous Positive Airway Pressure (ICD-10-PCS; 2020-11-10)
PROC: 0B978ZZ Drainage of Left Main Bronchus, Via Natural or Artificial Opening Endoscopic (ICD-10-PCS; 2020-11-12)
PROC: 0B938ZZ Drainage of Right Main Bronchus, Via Natural or Artificial Opening Endoscopic (ICD-10-PCS; 2020-11-12)
PROC: 0BC38ZZ Extirpation of Matter from Right Main Bronchus, Via Natural or Artificial Opening Endoscopic (ICD-10-PCS; 2020-11-13)
PROC: 5A1955Z Respiratory Ventilation, Greater than 96 Consecutive Hours (ICD-10-PCS; 2020-11-15)
PROC: 0BH17EZ Insertion of Endotracheal Airway into Trachea, Via Natural or Artificial Opening (ICD-10-PCS; 2020-11-15)
PROC: 02HV33Z Insertion of Infusion Device into Superior Vena Cava, Percutaneous Approach (ICD-10-PCS; 2020-11-16)
PROC: B548ZZA Ultrasonography of Superior Vena Cava, Guidance (ICD-10-PCS; 2020-11-16)
PROC: 0B110F4 Bypass Trachea to Cutaneous with Tracheostomy Device, Open Approach (ICD-10-PCS; 2020-11-21)
PROC: 0DH63UZ Insertion of Feeding Device into Stomach, Percutaneous Approach (ICD-10-PCS; 2020-11-21)
PROC: 05HY33Z Insertion of Infusion Device into Upper Vein, Percutaneous Approach (ICD-10-PCS; 2020-11-24)
DX: A41.9 Sepsis, unspecified organism (principal); L89.154 Pressure ulcer of sacral region, stage 4; G93.41 Metabolic encephalopathy; J96.01 Acute respiratory failure with hypoxia; J18.9 Pneumonia, unspecified organism; I50.31 Acute diastolic (congestive) heart failure; N17.0 Acute kidney failure with tubular necrosis; R65.21 Severe sepsis with septic shock; E43 Unspecified severe protein-calorie malnutrition; N39.0 Urinary tract infection, site not specified; M86.8X8 Other osteomyelitis, other site; E87.1 Hypo-osmolality and hyponatremia; T17.990A Other foreign object in respiratory tract, part unspecified in causing asphyxiation, initial encounter; Z20.822 Contact with and (suspected) exposure to COVID-19; G40.909 Epilepsy, unspecified, not intractable, without status epilepticus; F32.9 Major depressive disorder, single episode, unspecified; E78.5 Hyperlipidemia, unspecified; R13.19 Other dysphagia; I48.91 Unspecified atrial fibrillation; E83.42 Hypomagnesemia; S31.000A Unspecified open wound of lower back and pelvis without penetration into retroperitoneum, initial encounter; I11.0 Hypertensive heart disease with heart failure; D64.9 Anemia, unspecified; D69.6 Thrombocytopenia, unspecified; Z79.899 Other long term (current) drug therapy; Y93.89 Activity, other specified; Y92.89 Other specified places as the place of occurrence of the external cause; Y99.8 Other external cause status; Z79.82 Long term (current) use of aspirin; Z86.73 Personal history of transient ischemic attack (TIA), and cerebral infarction without residual deficits
CPT/HCPCS: 31720; 36415; 36600; 70450; 71045; 71250; 74176; 80048; 80053; 80061; 80202; 80320; 81001; 82140; 82270; 82550; 82803; 82805; 82947; 82962; 83036; 83735; 84100; 84132; 84443; 84484; 85007; 85025; 85027; 85610; 85730; 86022; 86850; 86900; 86901; 86920; 87040; 87070; 87076; 87086; 87186; 87205; 93005; 93306; 93925; 94002; 94003; 94640; 94660; 94667; 94668; 94669; 96365; 96367; 96375; G0378; A6260; G0480; J0153; J0282; J0330; J0461; J0610; J0692; J0696; J1160; J1265; J1644; J1650; J1940; J2185; J2250; J2270; J2370; J2704; J2997; J3010; J3370; J3475; J3480; J7030; J7040; J7050; J7060; J7070; J7120; P9016; P9047; U0003